=== PATIENT | female | born 1960 | race African-American/Black ===

== ENCOUNTER 2020-08-19 23:01 | Emergency (ER) | payer OTHER ==
--- OUTSIDE RECORDS SUMMARY | 2020-08-19 23:10 | XMS REPORT | Continuity of Care Document ---
:1960 Author Organization [facility] t Address [address] [place] [address] Care Team Providers Name Role Phone Jeromy Alba Primary Care Physician ANA PAULA TAVARES Attending Clinician Unavailable STEVE GARCIA Attending Clinician Unavailable NARGIS Admitting Clinician Unavailable STEVE GARCIA Admitting Clinician Unavailable Problems Condition Condition Condition Status Onset Resolution Last Treating Co mments Source Name Details Category Date Date Treatment Clinician Date Pyoderma Pyoderma Disease Active Overview: [facility]osu [facility]-10 [facility] - m m 00:00: surgical Medical 00 Center Hip 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[facility] osteoarthr osteoarthr 10-29 [facility] kes - itis itis 00:00: Medical 00 Center Diabetes Diabetes Disease [facility] Hypertensi Hypertensi Disease Active [facility] on on 10-29 [facility] Center Unilateral Unilateral Disease Active [facility] primary primary 10-07 [facility] - osteoarthr osteoarthr 00:00: Me dical itis, itis, 00 [place] right hip right hip Surgical Surgical Disease Active [facility] - infection, infection, Me dical initial initial Center encounter encounter Allergies, Adverse Reactions, Alerts Allergy Allergy Status Severity Reaction(s) Onset Inactive Treating Comm ents Source Name Type Date Date Clinician Iopamido Propensi Active Anaphylaxis [facility] to 10-06 [facility] - adverse 00:00: Medical reaction 00 Center s Family History Family Member Diagnosis Comments Start Date Stop Date Source Natural father Lung cancer [facility] Natural mother Diabetes [facility] Social History Social Habit Start Date Stop Date Quantity Comments Source Sex Assigned At [facility] Tobacco use and 2017-11-18 2017-11-18 Never used [facility] kes - exposure 00:00:00 00:00:00 Medical Center Alcohol intake 2017-11-18 2017-11-18 [facility] - 00:[facility]:00 00:00:00 of alcohol [facility] (finding) Alcohol Comment 2017-10-06 2017-10-06 SOCIALLY [facility] [place] - 00:00:00 00:00:00 Medical Center Smoking Status Start Date Stop Date Source Never smoker [facility] Medications Ordered Filled Start Stop Current Ordering Indication Dosage Frequency Signature Comments Components Source Medication Medication Date Date Medication? Clinician (SIG) Name Name gabapentin Yes 100mg QD Take [address] (NEURONTIN) 9-21 mg by [facility] - 100 MG 19:21: mouth Medical capsule 59 daily. Center apixaban Yes 5mg Q.5D Take [address] (ELIQUIS) 5 9-21 tablet (5 [facility] - mg Tab 00:00: mg total) Medica l tablet 00 by mouth 2 Center (two) times daily. sodium Yes 1g Inject 1 g [facility] chloride 9-21 intravenou [facility] - 0.9% (NS) 00:00: sly every Med ical PF Soln 20 00 8 (eight) Cent er mL with hours. meropenem 1 gram SolR 1 g Procedures This patient has no known procedures. Plan of Care Planned Activity Planned Date Details Comments Source Future Scheduled 2019-11-16 INFLUENZA VACCINE (#1) [facility] - Test 00:00:00 [code = INFLUENZA Medical Ce nter VACCINE (#1)] Future Scheduled 2018-11-[address] [facility] - Test 00:00[facility]00 [facility] (procedure) [code = 195739608] Future Scheduled 2017-10-29 Hemoglobin A1c [facility] kes - Test 00:00:00 [facility] (procedure) [code = 56700143] Future Scheduled [address] [facility] - Test 00:00:00 (procedure) [code = Medical Center 53859113] Future Scheduled [address] [facility] - Test 00:00:[address] [facility] cervix (procedure) [code = 509339237] Future Scheduled 1970 DIABETIC EYE EXAM [facility] - Test 00:00:00 [code = DIABETIC EYE Medical Center EXAM] Future Scheduled [address] [facility] - Test 00:00:00 examination Medical Center (regime/therapy) [code = 642852354] Future Scheduled 1970 Urine screening for [facility] - Test 00:00:00 protein (procedure) Medical Center [code = 159357208] Future Scheduled [address] [facility] - Test 00:00:00 0-64 YRS (1 of 1 - Medical C enter PPSV23) [code = PNEUMOCOCCAL VACCINE 0-64 YRS (1 of 1 - PPSV23)] Future Scheduled [address] [facility] - Test 00:00:[address] [facility] breast (procedure) [code = 200929179] Results Test Description Test Time Test Comments Results Result Comments Source AFB CULTURE + SMEAR 2017-12-27 17:40:00 Test Item Value Reference Range Interpretation Comme nts CULTURE (BEAKER) (test code = 1095) No acid-fast bacilli isolated i n 42 days AFB SMEAR (BEAKER) (test code = 994) No acid fast bacilli seen AFB CULTURE + [id number] 16:47:00 Test Item Value Reference Range Interpretation Comments CULTURE (BEAKER) (test No acid-fast bacilli code = 1095) isolated in 42 days AFB SMEAR (BEAKER) No acid fast bacilli (test code = 994) seen FUNGUS CULTURE + [id number] 17:06:00 Test Item Value Reference Range Interpretation Comments CULTURE (BEAKER) (test No fungus isolated in code = 1095) 28 days FUNGUS SMEAR (BEAKER) No fungi seen (test code = 1406) FUNGUS CULTURE + [id number] 20:59:00 Test Item Value Reference Range Interpretation Comments CULTURE (BEAKER) (test No fungus isolated in code = 1095) 28 days FUNGUS SMEAR (BEAKER) No fungi seen (test code = 1406) POCT-GLUCOSE [id number] 17:00:00 Test Item Value Reference Range Interpretation Comments POC-GLUCOSE METER 193 mg/dL 70-110 H TESTED AT [facility] [address] (BEAKER) (test code [facility] = [address]38) [place] [address] POCT-GLUCOSE [id number] 11:50:00 Test Item Value Reference Range Interpretation Comments POC-GLUCOSE METER 185 mg/dL 70-110 H TESTED AT [facility] [address] (BEAKER) (test code [facility] = [address]38) [place] [address] CBC W/PLT COUNT & AUTO [id number] 09:22:00 Test Item Value Reference Range Interpretation Comments WHITE BLOOD CELL COUNT (BEAKER) 10.0 K/ L 4.0-10.0 (test code = 775) RED BLOOD CELL COUNT (BEAKER) 3.76 M/ L 4.00-5.00 L (test code = 761) HEMOGLOBIN (BEAKER) (test code = 10.2 GM/DL 12.0-15.5 L 410) HEMATOCRIT (BEAKER) (test code = 32.8 % 36.0-46.0 L 411) MEAN CORPUSCULAR VOLUME (BEAKER) 87.2 fL 82.0-99.0 (test code = 753) MEAN CORPUSCULAR HEMOGLOBIN 27.1 pg 27.0-33.0 (BEAKER) (test code = 751) MEAN CORPUSCULAR HEMOGLOBIN CONC 31.1 GM/DL 32.0-36.0 L (BEAKER) (test code = 752) RED CELL DISTRIBUTION WIDTH 18.6 % 12.0-15.0 H (BEAKER) (test code = 412) PLATELET COUNT (BEAKER) (test 233 K/CU MM 150-430 code = 756) MEAN PLATELET VOLUME (BEAKER) 10.4 fL 6.0-11.5 (test code = 754) NUCLEATED RED BLOOD CELLS 0 /100 WBC 0-0 (BEAKER) (test code = 413) NEUTROPHILS RELATIVE PERCENT 64 % (BEAKER) (test code = 429) LYMPHOCYTES RELATIVE PERCENT 24 % (BEAKER) (test code = 430) MONOCYTES RELATIVE PERCENT 10 % (BEAKER) (test code = 431) EOSINOPHILS RELATIVE PERCENT 2 % (BEAKER) (test code = 432) BASOPHILS RELATIVE PERCENT 0 % (BEAKER) (test code = 437) NEUTROPHILS ABSOLUTE COUNT 6.38 K/ L 1.80-8.00 (BEAKER) (test code = 670) LYMPHOCYTES ABSOLUTE COUNT 2.41 K/ L 1.48-4.50 (BEAKER) (test code = 414) MONOCYTES ABSOLUTE COUNT (BEAKER) 0.99 K/ L 0.00-1.30 (test code = 415) EOSINOPHILS ABSOLUTE COUNT 0.18 K/ L 0.00-0.50 (BEAKER) (test code = 416) BASOPHILS ABSOLUTE COUNT (BEAKER) 0.01 K/ L 0.00-0.20 (test code = 417) IMMATURE GRANULOCYTES-RELATIVE 1 % 0-0 H PERCENT (BEAKER) (test code = 2801) BASIC METABOLIC [id number] 09:21:00 Test Item Value Reference Range Interpretation Comments SODIUM (BEAKER) 139 meq/L 135-148 (test code = 381) POTASSIUM (BEAKER) 3.4 meq/L 3.5-5.5 L (test code = 379) CHLORIDE (BEAKER) 103 meq/L 98-106 (test code = 382) CO2 (BEAKER) (test 25 meq/L 20-31 code = 355) BLOOD UREA NITROGEN 23 mg/dL 10-26 (BEAKER) (test code = 354) CREATININE (BEAKER) 0.69 mg/dL 0.50-1.20 (test code = 358) GLUCOSE RANDOM 96 mg/dL 70-110 (BEAKER) (test code = 652) CALCIUM (BEAKER) 9.0 mg/dL 8.5-10.5 (test code = 697) EGFR (BEAKER) (test 106 mL/min/1.73 ESTIM ATED GFR IS code = 1092) sq m NOT ACCURATE CREATININE CLEARANCE IN PREDICTING GLOMERULAR FILTRATION RATE . ESTIMATED GFR I S NOT APPLICABLE FOR DIALYSIS PATIEN TS. C-REACTIVE [id number] 09:21:00 Test Item Value Reference Range Interpretation Comments C-REACTIVE PROTEIN (BEAKER) (test 2.31 mg/dL 0.00-0.50 H code = 676) HEPATIC FUNCTION [id number] 09:20:00 Test Item Value Reference Range Interpretation Comments TOTAL PROTEIN (BEAKER) (test code = 6.7 gm/dL 6.0-8.5 770) ALBUMIN (BEAKER) (test code = 1145) 3.4 g/dL 3.5-5.0 L BILIRUBIN TOTAL (BEAKER) (test code 0.8 mg/dL 0.1-1.3 = 377) BILIRUBIN DIRECT (BEAKER) (test 0.5 mg/dL 0.0-0.5 code = 706) ALKALINE PHOSPHATASE (BEAKER) (test 113 U/L 30-115 code = 346) AST (SGOT) (BEAKER) (test code = 20 U/L 5-40 353) ALT (SGPT) (BEAKER) (test code = 47 U/L 6-50 347) POCT-GLUCOSE [id number] 06:53:00 Test Item Value Reference Range Interpretation Comments POC-GLUCOSE METER 102 mg/dL 70-110 TESTED AT [facility] [address] [facility] (test code [place] [facility] = [address]38) [place] [address] POCT-GLUCOSE [id number] 21:32:00 Test Item Value Reference Range Interpretation Comments POC-GLUCOSE METER 212 mg/dL 70-110 H TESTED AT [facility] [address] [facility] (test code [place] [facility] = [address]38) [place] [address] POCT-GLUCOSE [id number] 16:26:00 Test Item Value Reference Range Interpretation Comments POC-GLUCOSE METER 170 mg/dL 70-110 H TESTED AT [facility] [address] ([facility]) (test code [place] [facility] = [address]38) [place] [address] POCT-GLUCOSE [id number] 05:53:00 Test Item Value Reference Range Interpretation Comments POC-GLUCOSE METER 90 mg/dL 70-110 TESTED AT [facility] [address] ([facility] (test code = [place] [facility] 15[address]) [place] [address] POCT-GLUCOSE [id number] 21:52:00 Test Item Value Reference Range Interpretation Comments POC-GLUCOSE METER 130 mg/dL 70-110 H TESTED AT [facility] [address] [facility] (test code [place] [facility] = 1538) [place] [address] POCT-GLUCOSE [id number] 17:16:00 Test Item Value Reference Range Interpretation Comments POC-GLUCOSE METER 177 mg/dL 70-110 H TESTED AT [facility] [address] (BEAKER) ([facility] [place] [facility] = [address]) [place] [address] [id number] 16:02:00 Test Item Value Reference Range Interpretation Comments POTASSIUM (BEAKER) (test code = 3.9 meq/L 3.5-5.5 379) POCT-GLUCOSE [id number] 12:10:00 Test Item Value Reference Range Interpretation Comments POC-GLUCOSE METER 176 mg/dL 70-110 H TESTED AT [facility] [address] (BEAKER) (test code [place] [facility] = [address]38) [place] [address] POCT-GLUCOSE [id number] 05:57:00 Test Item Value Reference Range Interpretation Comments POC-GLUCOSE METER 113 mg/dL 70-110 H TESTED AT [facility] [address] (BEAKER) (test [place] [facility] = [address]) [place] [address] POCT-GLUCOSE [id number] 21:53:00 Test Item Value Reference Range Interpretation Comments POC-GLUCOSE METER 160 mg/dL 70-110 H TESTED AT [facility] [address] (BEAKER) (test [place] [facility] = [address]) [place] [address] POCT-GLUCOSE [id number] 16:49:00 Test Item Value Reference Range Interpretation Comments POC-GLUCOSE METER 158 mg/dL 70-110 H TESTED AT [facility] [address] (BEAKER) (test [place] [facility] = [address]) [place] [address] POCT-GLUCOSE [id number] 12:14:00 Test Item Value Reference Range Interpretation Comments POC-GLUCOSE METER 162 mg/dL 70-110 H TESTED AT [facility] [address] (BEAKER) (test code [place] [facility] = 1538) [place] [address] BASIC METABOLIC [id number] 04:57:00 Test Item Value Reference Range Interpretation Comments SODIUM (BEAKER) 140 meq/L 135-148 (test code = 381) POTASSIUM (BEAKER) 3.1 meq/L 3.5-5.5 L (test code = 379) CHLORIDE (BEAKER) 102 meq/L 98-106 (test code = 382) CO2 (BEAKER) (test 28 meq/L 20-31 code = 355) BLOOD UREA NITROGEN 26 mg/dL 10-26 (BEAKER) (test code = 354) CREATININE (BEAKER) 0.64 mg/dL 0.50-1.20 (test code = 358) GLUCOSE RANDOM 102 mg/dL 70-110 (BEAKER) (test code = 652) CALCIUM (BEAKER) 8.7 mg/dL 8.5-10.5 (test code = 697) EGFR (BEAKER) (test 116 mL/min/1.73 ESTIM ATED GFR IS code = 1092) sq m NOT ACCURATE CREATININE CLEARANCE IN PREDICTING GLOMERULAR FILTRATION RATE . ESTIMATED GFR I S NOT APPLICABLE FOR DIALYSIS PATIEN TS. CBC W/PLT COUNT & AUTO [id number] 04:28:00 Test Item Value Reference Range Interpretation Comments WHITE BLOOD CELL COUNT 12.1 K/ L 4.0-10.0 H (BEAKER) (test code = 775) RED BLOOD CELL COUNT 3.54 M/ L 4.00-5.00 L (BEAKER) (test code = 761) HEMOGLOBIN (BEAKER) 9.7 GM/DL 12.0-15.5 L (test code = 410) HEMATOCRIT (BEAKER) 30.0 % 36.0-46.0 L (test code = 411) MEAN CORPUSCULAR VOLUME 84.7 fL 82.0-99.0 (BEAKER) (test code = 753) MEAN CORPUSCULAR 27.4 pg 27.0-33.0 HEMOGLOBIN (BEAKER) (test code = 751) MEAN CORPUSCULAR 32.3 GM/DL 32.0-36.0 HEMOGLOBIN CONC (BEAKER) (test code = 752) RED CELL DISTRIBUTION 19.5 % 12.0-15.0 H WIDTH (BEAKER) (test code = 412) PLATELET COUNT (BEAKER) 206 K/CU MM 150-430 (test code = 756) MEAN PLATELET VOLUME 10.0 fL 6.0-11.5 MPV-Christina roximately (BEAKER) (test code = 20% po sitive bias 754) due to method change. NUCLEATED RED BLOOD 0 /100 WBC 0-0 CELLS (BEAKER) (test code = 413) NEUTROPHILS RELATIVE 69 % PERCENT (BEAKER) (test code = 429) LYMPHOCYTES RELATIVE 18 % PERCENT (BEAKER) (test code = 430) MONOCYTES RELATIVE 11 % PERCENT (BEAKER) (test code = 431) EOSINOPHILS RELATIVE 1 % PERCENT (BEAKER) (test code = 432) BASOPHILS RELATIVE 0 % PERCENT (BEAKER) (test code = 437) NEUTROPHILS ABSOLUTE 8.41 K/ L 1.80-8.00 H COUNT (BEAKER) (test code = 670) LYMPHOCYTES ABSOLUTE 2.16 K/ L 1.48-4.50 COUNT (BEAKER) (test code = 414) MONOCYTES ABSOLUTE 1.32 K/ L 0.00-1.30 H COUNT (BEAKER) (test code = 415) EOSINOPHILS ABSOLUTE 0.12 K/ L 0.00-0.50 COUNT (BEAKER) (test code = 416) BASOPHILS ABSOLUTE 0.01 K/ L 0.00-0.20 COUNT (BEAKER) (test code = 417) IMMATURE 1 % 0-0 H GRANULOCYTES-RELATIVE PERCENT (BEAKER) (test code = 2801) POCT-GLUCOSE [id number] 20:44:00 Test Item Value Reference Range Interpretation Comments POC-GLUCOSE METER 168 mg/dL 70-110 H TESTED AT [facility] [address] (BEAKER) (test code [facility] = [address]) [place] [address] POCT-GLUCOSE [id number] 16:10:00 Test Item Value Reference Range Interpretation Comments POC-GLUCOSE METER 228 mg/dL 70-110 H TESTED AT [facility] [address] (BEAKER) (test code [facility] = [address]38) [place] [address] POCT-GLUCOSE [id number] 13:15:00 Test Item Value Reference Range Interpretation Comments POC-GLUCOSE METER 182 mg/dL 70-110 H TESTED AT [facility] [address] (BEAKER) (test code [facility] = [address]38) [place] [address] POCT-GLUCOSE [id number] 06:57:00 Test Item Value Reference Range Interpretation Comments POC-GLUCOSE METER 153 mg/dL 70-110 H TESTED AT [facility] [address] (BEAKER) (test code [facility] = [address]38) [place] [address] POCT-GLUCOSE [id number] 21:27:00 Test Item Value Reference Range Interpretation Comments POC-GLUCOSE METER 146 mg/dL 70-110 H TESTED AT [facility] [address] (BEAKER) ([place] [facility] = [address]) [place] [address] POCT-GLUCOSE [id number] 17:17:00 Test Item Value Reference Range Interpretation Comments POC-GLUCOSE METER 134 mg/dL 70-110 H TESTED AT [facility] [address] (BEAKER) (test [place] [facility] = [address]) [place] [address] POCT-GLUCOSE [id number] 13:49:00 Test Item Value Reference Range Interpretation Comments POC-GLUCOSE METER 177 mg/dL 70-110 H TESTED AT [facility] [address] (BEAKER) (test [place] [facility] = [address]) [place] [address] POCT-GLUCOSE [id number] 05:34:00 Test Item Value Reference Range Interpretation Comments POC-GLUCOSE METER 118 mg/dL 70-110 H TESTED AT [facility] [address] [facility] (test [place] [facility] = [address]38) [place] [address] POCT-GLUCOSE [id number] 21:14:00 Test Item Value Reference Range Interpretation Comments POC-GLUCOSE METER 149 mg/dL 70-110 H TESTED AT [facility] [address] [facility] ([place] [facility] = [address]38) [place] [address] POCT-GLUCOSE [id number] 17:44:00 Test Item Value Reference Range Interpretation Comments POC-GLUCOSE METER 132 mg/dL 70-110 H TESTED AT [facility] [address] (BEAKER) (test [place] [facility] = [address]) [place] [address] POCT-GLUCOSE [id number] 12:21:00 Test Item Value Reference Range Interpretation Comments POC-GLUCOSE METER 168 mg/dL 70-110 H TESTED AT [facility] [address] (BEAKER) (test code [place] = 1538) [place] [address] [id number] 05:19:00 Test Item Value Reference Range Interpretation Comments PARTIAL THROMBOPLASTIN TIME 84.3 seconds 23.2-36.1 H (BEAKER) (test code = 760) POCT-GLUCOSE [id number] 20:50:00 Test Item Value Reference Range Interpretation Comments POC-GLUCOSE METER 147 mg/dL 70-110 H TESTED AT [facility] [address] (BEAKER) (test code [facility] = [address]38) [place] [address] POCT-GLUCOSE [id number] 17:19:00 Test Item Value Reference Range Interpretation Comments POC-GLUCOSE METER 238 mg/dL 70-110 H TESTED AT [facility] [address] (BEAKER) (test code [facility] = [address]38) [place] [address] [id number] 15:09:00 Test Item Value Reference Range Interpretation Comments PARTIAL THROMBOPLASTIN TIME 74.8 seconds 23.2-36.1 H (BEAKER) (test code = 760) POCT-GLUCOSE [id number] 11:57:00 Test Item Value Reference Range Interpretation Comments POC-GLUCOSE METER 146 mg/dL 70-110 H TESTED AT [facility] [address] (BEAKER) ([facility] [place] [address] POCT-GLUCOSE [id number] 05:37:00 Test Item Value Reference Range Interpretation Comments POC-GLUCOSE METER 139 mg/dL 70-110 H TESTED AT [facility] [address] (BEAKER) (test code [facility] = [address]38) [place] [address] BASIC METABOLIC [id number] 04:04:00 Test Item Value Reference Range Interpretation Comments SODIUM (BEAKER) 142 meq/L 135-148 (test code = 381) POTASSIUM (BEAKER) 3.4 meq/L 3.5-5.5 L (test code = 379) CHLORIDE (BEAKER) 102 meq/L 98-106 (test code = 382) CO2 (BEAKER) (test 29 meq/L 20-31 code = 355) BLOOD UREA NITROGEN 24 mg/dL 10-26 (BEAKER) (test code = 354) CREATININE (BEAKER) 0.78 mg/dL 0.50-1.20 (test code = 358) GLUCOSE RANDOM 156 mg/dL 70-110 H (BEAKER) (test code = 652) CALCIUM (BEAKER) 8.4 mg/dL 8.5-10.5 L (test code = 697) EGFR (BEAKER) (test 92 mL/min/1.73 ESTIMA JUNE GFR IS code = 1092) sq m NOT ACCURATE CREATININE CLEARANCE IN PREDICTING GLOMERULAR FILTRATION RATE . ESTIMATED GFR I S NOT APPLICABLE FOR DIALYSIS PATIEN TS. [id number] 04:02:00 Test Item Value Reference Range Interpretation Comments PARTIAL THROMBOPLASTIN TIME 76.5 seconds 23.2-36.1 H (BEAKER) (test code = 760) CBC W/PLT COUNT & AUTO [id number] 03:41:00 Test Item Value Reference Range Interpretation Comments WHITE BLOOD CELL COUNT 14.4 K/ L 4.0-10.0 H (BEAKER) (test code = 775) RED BLOOD CELL COUNT 3.40 M/ L 4.00-5.00 L (BEAKER) (test code = 761) HEMOGLOBIN (BEAKER) 9.3 GM/DL 12.0-15.5 L (test code = 410) HEMATOCRIT (BEAKER) 28.6 % 36.0-46.0 L (test code = 411) MEAN CORPUSCULAR VOLUME 84.1 fL 82.0-99.0 (BEAKER) (test code = 753) MEAN CORPUSCULAR 27.4 pg 27.0-33.0 HEMOGLOBIN (BEAKER) (test code = 751) MEAN CORPUSCULAR 32.5 GM/DL 32.0-36.0 HEMOGLOBIN CONC (BEAKER) (test code = 752) RED CELL DISTRIBUTION 19.8 % 12.0-15.0 H WIDTH (BEAKER) (test code = 412) PLATELET COUNT (BEAKER) 219 K/CU MM 150-430 (test code = 756) MEAN PLATELET VOLUME 9.5 fL 6.0-11.5 MPV-Christina roximately (BEAKER) (test code = 20% po sitive bias 754) due to method change. NUCLEATED RED BLOOD 0 /100 WBC 0-0 CELLS (BEAKER) (test code = 413) NEUTROPHILS RELATIVE 78 % PERCENT (BEAKER) (test code = 429) LYMPHOCYTES RELATIVE 12 % PERCENT (BEAKER) (test code = 430) MONOCYTES RELATIVE 8 % PERCENT (BEAKER) (test code = 431) EOSINOPHILS RELATIVE 1 % PERCENT (BEAKER) (test code = 432) BASOPHILS RELATIVE 0 % PERCENT (BEAKER) (test code = 437) NEUTROPHILS ABSOLUTE 11.21 K/ L 1.80-8.00 H COUNT (BEAKER) (test code = 670) LYMPHOCYTES ABSOLUTE 1.71 K/ L 1.48-4.50 COUNT (BEAKER) (test code = 414) MONOCYTES ABSOLUTE 1.16 K/ L 0.00-1.30 COUNT (BEAKER) (test code = 415) EOSINOPHILS ABSOLUTE 0.07 K/ L 0.00-0.50 COUNT (BEAKER) (test code = 416) BASOPHILS ABSOLUTE 0.01 K/ L 0.00-0.20 COUNT (BEAKER) (test code = 417) IMMATURE 2 % 0-0 H GRANULOCYTES-RELATIVE PERCENT (BEAKER) (test code = 2801) POCT-GLUCOSE [id number] 22:12:00 Test Item Value Reference Range Interpretation Comments POC-GLUCOSE METER 247 mg/dL 70-110 H TESTED AT [facility] [address] (BEAKER) (test code [facility] = [address]38) [place] [address] [id number] 21:11:00 Test Item Value Reference Range Interpretation Comments PARTIAL THROMBOPLASTIN TIME 62.4 seconds 23.2-36.1 H (BEAKER) (test code = 760) [id number] 12:45:00 Test Item Value Reference Range Interpretation Comments PARTIAL THROMBOPLASTIN TIME 101.2 seconds 23.2-36.1 H (BEAKER) (test code = 760) POCT-GLUCOSE [id number] 11:48:00 Test Item Value Reference Range Interpretation Comments POC-GLUCOSE METER 259 mg/dL 70-110 H TESTED AT [facility] [address] (BEAKER) (test code [facility] = 1538) [place] [address] POCT-GLUCOSE [id number] 05:38:00 Test Item Value Reference Range Interpretation Comments POC-GLUCOSE METER 121 mg/dL 70-110 H TESTED AT [facility] [address] (BEAKER) (test code [facility] = 1538) [place] [address] [id number] 05:33:00 Test Item Value Reference Range Interpretation Comments PARTIAL THROMBOPLASTIN TIME 108.5 seconds 23.2-36.1 H (BEAKER) (test code = 760) POCT-GLUCOSE [id number] 20:59:00 Test Item Value Reference Range Interpretation Comments POC-GLUCOSE METER 197 mg/dL 70-110 H TESTED AT [facility] [address] (BEAKER) (test code [facility] = 1538) [place] [address] POCT-GLUCOSE [id number] 16:47:00 Test Item Value Reference Range Interpretation Comments POC-GLUCOSE METER 150 mg/dL 70-110 H TESTED AT [facility] [address] (BEAKER) (test code [facility] = 1538) [place] [address] [id number] 15:21:00 Test Item Value Reference Range Interpretation Comments PARTIAL THROMBOPLASTIN TIME 79.9 seconds 23.2-36.1 H (BEAKER) (test code = 760) POCT-GLUCOSE [id number] 12:52:00 Test Item Value Reference Range Interpretation Comments POC-GLUCOSE METER 207 mg/dL 70-110 H TESTED AT [facility] [address] (BEAKER) (test code [facility] = 1538) [place] [address] [id number] 09:17:00 Test Item Value Reference Range Interpretation Comments PARTIAL THROMBOPLASTIN TIME 95.7 seconds 23.2-36.1 H (BEAKER) (test code = 760) BASIC METABOLIC [id number] 02:36:00 Test Item Value Reference Range Interpretation Comments SODIUM (BEAKER) 140 meq/L 135-148 (test code = 381) POTASSIUM (BEAKER) 3.4 meq/L 3.5-5.5 L (test code = 379) CHLORIDE (BEAKER) 98 meq/L 98-106 (test code = 382) CO2 (BEAKER) (test 34 meq/L 20-31 H code = 355) BLOOD UREA NITROGEN 24 mg/dL 10-26 (BEAKER) (test code = 354) CREATININE (BEAKER) 0.68 mg/dL 0.50-1.20 (test code = 358) GLUCOSE RANDOM 147 mg/dL 70-110 H (BEAKER) (test code = 652) CALCIUM (BEAKER) 7.9 mg/dL 8.5-10.5 L (test code = 697) EGFR (BEAKER) (test 108 mL/min/1.73 ESTIM ATED GFR IS code = 1092) sq m NOT ACCURATE CREATININE CLEARANCE IN PREDICTING GLOMERULAR FILTRATION RATE . ESTIMATED GFR I S NOT APPLICABLE FOR DIALYSIS PATIEN TS. [id number] 02:26:00 Test Item Value Reference Range Interpretation Comments PARTIAL THROMBOPLASTIN TIME 104.6 seconds 23.2-36.1 H (BEAKER) (test code = 760) CBC W/PLT COUNT & AUTO [id number] 02:18:00 Test Item Value Reference Range Interpretation Comments WHITE BLOOD CELL COUNT 12.9 K/ L 4.0-10.0 H (BEAKER) (test code = 775) RED BLOOD CELL COUNT 3.23 M/ L 4.00-5.00 L (BEAKER) (test code = 761) HEMOGLOBIN (BEAKER) 8.7 GM/DL 12.0-15.5 L (test code = 410) HEMATOCRIT (BEAKER) 26.7 % 36.0-46.0 L (test code = 411) MEAN CORPUSCULAR VOLUME 82.7 fL 82.0-99.0 (BEAKER) (test code = 753) MEAN CORPUSCULAR 26.9 pg 27.0-33.0 L HEMOGLOBIN (BEAKER) (test code = 751) MEAN CORPUSCULAR 32.6 GM/DL 32.0-36.0 HEMOGLOBIN CONC (BEAKER) (test code = 752) RED CELL DISTRIBUTION 19.2 % 12.0-15.0 H WIDTH (BEAKER) (test code = 412) PLATELET COUNT (BEAKER) 224 K/CU MM 150-430 (test code = 756) MEAN PLATELET VOLUME 9.4 fL 6.0-11.5 MPV-Christina roximately (BEAKER) (test code = 20% po sitive bias 754) due to method change. NUCLEATED RED BLOOD 0 /100 WBC 0-0 CELLS (BEAKER) (test code = 413) NEUTROPHILS RELATIVE 73 % PERCENT (BEAKER) (test code = 429) LYMPHOCYTES RELATIVE 15 % PERCENT (BEAKER) (test code = 430) MONOCYTES RELATIVE 9 % PERCENT (BEAKER) (test code = 431) EOSINOPHILS RELATIVE 1 % PERCENT (BEAKER) (test code = 432) BASOPHILS RELATIVE 0 % PERCENT (BEAKER) (test code = 437) NEUTROPHILS ABSOLUTE 9.43 K/ L 1.80-8.00 H COUNT (BEAKER) (test code = 670) LYMPHOCYTES ABSOLUTE 1.88 K/ L 1.48-4.50 COUNT (BEAKER) (test code = 414) MONOCYTES ABSOLUTE 1.20 K/ L 0.00-1.30 COUNT (BEAKER) (test code = 415) EOSINOPHILS ABSOLUTE 0.08 K/ L 0.00-0.50 COUNT (BEAKER) (test code = 416) BASOPHILS ABSOLUTE 0.01 K/ L 0.00-0.20 COUNT (BEAKER) (test code = 417) IMMATURE 2 % 0-0 H GRANULOCYTES-RELATIVE PERCENT (BEAKER) (test code = 2801) POCT-GLUCOSE [id number] 22:17:00 Test Item Value Reference Range Interpretation Comments POC-GLUCOSE METER 211 mg/dL 70-110 H TESTED AT [facility] [address] (BEAKER) (test code [facility] = 1538) [place] [address] [id number] 20:16:00 Test Item Value Reference Range Interpretation Comments PARTIAL THROMBOPLASTIN TIME 107.2 seconds 23.2-36.1 H (BEAKER) (test code = 760) POCT-GLUCOSE [id number] 16:24:00 Test Item Value Reference Range Interpretation Comments POC-GLUCOSE METER 167 mg/dL 70-110 H TESTED AT [facility] [address] (BEAKER) (test code [facility] = 1538) [place] [address] [id number] 14:17:00 Test Item Value Reference Range Interpretation Comments PARTIAL THROMBOPLASTIN TIME 96.3 seconds 23.2-36.1 H (BEAKER) (test code = 760) POCT-GLUCOSE [id number] 11:40:00 Test Item Value Reference Range Interpretation Comments POC-GLUCOSE METER 190 mg/dL 70-110 H TESTED AT [facility] [address] (BEAKER) (test code [facility] = 1538) [place] [address] [id number] 07:52:00 Test Item Value Reference Range Interpretation Comments PARTIAL THROMBOPLASTIN TIME 58.0 seconds 23.2-36.1 H (BEAKER) (test code = 760) BASIC METABOLIC [id number] 06:09:00 Test Item Value Reference Range Interpretation Comments SODIUM (BEAKER) 142 meq/L 135-148 (test code = 381) POTASSIUM (BEAKER) 3.7 meq/L 3.5-5.5 (test code = 379) CHLORIDE (BEAKER) 100 meq/L 98-106 (test code = 382) CO2 (BEAKER) (test 34 meq/L 20-31 H code = 355) BLOOD UREA NITROGEN 25 mg/dL 10-26 (BEAKER) (test code = 354) CREATININE (BEAKER) 0.68 mg/dL 0.50-1.20 (test code = 358) GLUCOSE RANDOM 152 mg/dL 70-110 H (BEAKER) (test code = 652) CALCIUM (BEAKER) 7.8 mg/dL 8.5-10.5 L (test code = 697) EGFR (BEAKER) (test 108 mL/min/1.73 ESTIM ATED GFR IS code = 1092) sq m NOT ACCURATE CREATININE CLEARANCE IN PREDICTING GLOMERULAR FILTRATION RATE . ESTIMATED GFR I S NOT APPLICABLE FOR DIALYSIS PATIJUNAID JEAN. [id number] 05:53:00 Test Item Value Reference Range Interpretation Comments PARTIAL THROMBOPLASTIN TIME 138.1 seconds 23.2-36.1 H (BEAKER) (test code = 760) CBC W/PLT COUNT & AUTO [id number] 05:45:00 Test Item Value Reference Range Interpretation Comments WHITE BLOOD CELL COUNT 13.3 K/ L 4.0-10.0 H (BEAKER) (test code = 775) RED BLOOD CELL COUNT 3.12 M/ L 4.00-5.00 L (BEAKER) (test code = 761) HEMOGLOBIN (BEAKER) 8.5 GM/DL 12.0-15.5 L (test code = 410) HEMATOCRIT (BEAKER) 26.0 % 36.0-46.0 L (test code = 411) MEAN CORPUSCULAR VOLUME 83.3 fL 82.0-99.0 (BEAKER) (test code = 753) MEAN CORPUSCULAR 27.2 pg 27.0-33.0 HEMOGLOBIN (BEAKER) (test code = 751) MEAN CORPUSCULAR 32.7 GM/DL 32.0-36.0 HEMOGLOBIN CONC (BEAKER) (test code = 752) RED CELL DISTRIBUTION 18.9 % 12.0-15.0 H WIDTH (BEAKER) (test code = 412) PLATELET COUNT (BEAKER) 241 K/CU MM 150-430 (test code = 756) MEAN PLATELET VOLUME 9.2 fL 6.0-11.5 MPV-Christina roximately (BEAKER) (test code = 20% po sitive bias 754) due to method change. NUCLEATED RED BLOOD 0 /100 WBC 0-0 CELLS (BEAKER) (test code = 413) NEUTROPHILS RELATIVE 75 % PERCENT (BEAKER) (test code = 429) LYMPHOCYTES RELATIVE 13 % PERCENT (BEAKER) (test code = 430) MONOCYTES RELATIVE 9 % PERCENT (BEAKER) (test code = 431) EOSINOPHILS RELATIVE 0 % PERCENT (BEAKER) (test code = 432) BASOPHILS RELATIVE 0 % PERCENT (BEAKER) (test code = 437) NEUTROPHILS ABSOLUTE 9.94 K/ L 1.80-8.00 H COUNT (BEAKER) (test code = 670) LYMPHOCYTES ABSOLUTE 1.74 K/ L 1.48-4.50 COUNT (BEAKER) (test code = 414) MONOCYTES ABSOLUTE 1.24 K/ L 0.00-1.30 COUNT (BEAKER) (test code = 415) EOSINOPHILS ABSOLUTE 0.03 K/ L 0.00-0.50 COUNT (BEAKER) (test code = 416) BASOPHILS ABSOLUTE 0.01 K/ L 0.00-0.20 COUNT (BEAKER) (test code = 417) IMMATURE 2 % 0-0 H GRANULOCYTES-RELATIVE PERCENT (BEAKER) (test code = 2801) [id number] 23:56:00 Test Item Value Reference Range Interpretation Comments PARTIAL THROMBOPLASTIN TIME 96.6 seconds 23.2-36.1 H (BEAKER) (test code = 760) POCT-GLUCOSE [id number] 21:22:00 Test Item Value Reference Range Interpretation Comments POC-GLUCOSE METER 160 mg/dL 70-110 H TESTED AT [facility] [address] (BEAKER) (test code [facility] = 1538) [place] [address] POCT-GLUCOSE [id number] 17:27:00 Test Item Value Reference Range Interpretation Comments POC-GLUCOSE METER 151 mg/dL 70-110 H TESTED AT [facility] [address] (BEAKER) (test code [facility] = 1538) [place] [address] [id number] 16:40:00 Test Item Value Reference Range Interpretation Comments PARTIAL THROMBOPLASTIN TIME 40.0 seconds 23.2-36.1 H (BEAKER) (test code = 760) POCT-GLUCOSE [id number] 13:43:00 Test Item Value Reference Range Interpretation Comments POC-GLUCOSE METER 164 mg/dL 70-110 H TESTED AT [facility] [address] (BEAKER) (test code [facility] = 1538) [place] [address] [id number] 13:34:00 Test Item Value Reference Range Interpretation Comments PARTIAL THROMBOPLASTIN TIME 141.6 seconds 23.2-36.1 H (BEAKER) (test code = 760) OCCULT BLOOD, [id number] 13:20:00 Test Item Value Reference Range Interpretation Comments FECAL OCCULT BLOOD (BEAKER) (test Negative Negative code = 618) BASIC METABOLIC [id number] 12:13:00 Test Item Value Reference Range Interpretation Comments SODIUM (BEAKER) 141 meq/L 135-148 (test code = 381) POTASSIUM (BEAKER) 3.9 meq/L 3.5-5.5 (test code = 379) CHLORIDE (BEAKER) 99 meq/L 98-106 (test code = 382) CO2 (BEAKER) (test 34 meq/L 20-31 H code = 355) BLOOD UREA NITROGEN 22 mg/dL 10-26 (BEAKER) (test code = 354) CREATININE (BEAKER) 0.65 mg/dL 0.50-1.20 (test code = 358) GLUCOSE RANDOM 159 mg/dL 70-110 H (BEAKER) (test code = 652) CALCIUM (BEAKER) 8.2 mg/dL 8.5-10.5 L (test code = 697) EGFR (BEAKER) (test 114 mL/min/1.73 ESTIM ATED GFR IS code = 1092) sq m NOT ACCURATE CREATININE CLEARANCE IN PREDICTING GLOMERULAR FILTRATION RATE . ESTIMATED GFR I S NOT APPLICABLE FOR DIALYSIS PATIEN TS. HEPATIC FUNCTION [id number] 12:13:00 Test Item Value Reference Range Interpretation Comments TOTAL PROTEIN (BEAKER) (test code = 5.5 gm/dL 6.0-8.5 L 770) ALBUMIN (BEAKER) (test code = 1145) 2.4 g/dL 3.5-5.0 L BILIRUBIN TOTAL (BEAKER) (test code 1.6 mg/dL 0.1-1.3 H = 377) BILIRUBIN DIRECT (BEAKER) (test 1.0 mg/dL 0.0-0.5 H code = 706) ALKALINE PHOSPHATASE (BEAKER) (test 111 U/L 30-115 code = 346) AST (SGOT) (BEAKER) (test code = 17 U/L 5-40 353) ALT (SGPT) (BEAKER) (test code = 26 U/L 6-50 347) CBC W/PLT COUNT & AUTO [id number] 11:47:00 Test Item Value Reference Range Interpretation Comments WHITE BLOOD CELL COUNT 13.4 K/ L 4.0-10.0 H (BEAKER) (test code = 775) RED BLOOD CELL COUNT 3.31 M/ L 4.00-5.00 L (BEAKER) (test code = 761) HEMOGLOBIN (BEAKER) 8.9 GM/DL 12.0-15.5 L (test code = 410) HEMATOCRIT (BEAKER) 27.3 % 36.0-46.0 L (test code = 411) MEAN CORPUSCULAR VOLUME 82.5 fL 82.0-99.0 (BEAKER) (test code = 753) MEAN CORPUSCULAR 26.9 pg 27.0-33.0 L HEMOGLOBIN (BEAKER) (test code = 751) MEAN CORPUSCULAR 32.6 GM/DL 32.0-36.0 HEMOGLOBIN CONC (BEAKER) (test code = 752) RED CELL DISTRIBUTION 19.0 % 12.0-15.0 H WIDTH (BEAKER) (test code = 412) PLATELET COUNT (BEAKER) 275 K/CU MM 150-430 (test code = 756) MEAN PLATELET VOLUME 8.7 fL 6.0-11.5 MPV-Christina roximately (BEAKER) (test code = 20% po sitive bias 754) due to method change. NUCLEATED RED BLOOD 0 /100 WBC 0-0 CELLS (BEAKER) (test code = 413) NEUTROPHILS RELATIVE 79 % PERCENT (BEAKER) (test code = 429) LYMPHOCYTES RELATIVE 12 % PERCENT (BEAKER) (test code = 430) MONOCYTES RELATIVE 8 % PERCENT (BEAKER) (test code = 431) EOSINOPHILS RELATIVE 0 % PERCENT (BEAKER) (test code = 432) BASOPHILS RELATIVE 0 % PERCENT (BEAKER) (test code = 437) NEUTROPHILS ABSOLUTE 10.49 K/ L 1.80-8.00 H COUNT (BEAKER) (test code = 670) LYMPHOCYTES ABSOLUTE 1.53 K/ L 1.48-4.50 COUNT (BEAKER) (test code = 414) MONOCYTES ABSOLUTE 1.04 K/ L 0.00-1.30 COUNT (BEAKER) (test code = 415) EOSINOPHILS ABSOLUTE 0.01 K/ L 0.00-0.50 COUNT (BEAKER) (test code = 416) BASOPHILS ABSOLUTE 0.02 K/ L 0.00-0.20 COUNT (BEAKER) (test code = 417) IMMATURE 2 % 0-0 H GRANULOCYTES-RELATIVE PERCENT (BEAKER) (test code = 2801) [id number] 06:33:00 Test Item Value Reference Range Interpretation Comments PARTIAL THROMBOPLASTIN TIME 102.3 seconds 23.2-36.1 H (BEAKER) (test code = 760) POCT-GLUCOSE [id number] 05:47:00 Test Item Value Reference Range Interpretation Comments POC-GLUCOSE METER 151 mg/dL 70-110 H TESTED AT [facility] [address] (BEAKER) (test code [facility] = 1538) [place] [address] BASIC METABOLIC [id number] 01:16:00 Test Item Value Reference Range Interpretation Comments SODIUM (BEAKER) 141 meq/L 135-148 (test code = 381) POTASSIUM (BEAKER) 3.9 meq/L 3.5-5.5 (test code = 379) CHLORIDE (BEAKER) 99 meq/L 98-106 (test code = 382) CO2 (BEAKER) (test 34 meq/L 20-31 H code = 355) BLOOD UREA NITROGEN 22 mg/dL 10-26 (BEAKER) (test code = 354) CREATININE (BEAKER) 0.69 mg/dL 0.50-1.20 (test code = 358) GLUCOSE RANDOM 154 mg/dL 70-110 H (BEAKER) (test code = 652) CALCIUM (BEAKER) 8.1 mg/dL 8.5-10.5 L (test code = 697) EGFR (BEAKER) (test 106 mL/min/1.73 ESTIM ATED GFR IS code = 1092) sq m NOT ACCURATE CREATININE CLEARANCE IN PREDICTING GLOMERULAR FILTRATION RATE . ESTIMATED GFR I S NOT APPLICABLE FOR DIALYSIS PATIEN TS. [id number] 01:06:00 Test Item Value Reference Range Interpretation Comments PARTIAL THROMBOPLASTIN TIME 46.8 seconds 23.2-36.1 H (BEAKER) (test code = 760) [id number] 23:18:00 Test Item Value Reference Range Interpretation Comments PARTIAL THROMBOPLASTIN TIME 177.9 seconds 23.2-36.1 HH (BEAKER) (test code = 760) POCT-GLUCOSE [id number] 22:05:00 Test Item Value Reference Range Interpretation Comments POC-GLUCOSE METER 204 mg/dL 70-110 H TESTED AT [facility] [address] (BEAKER) (test code [facility] = 1538) [place] [address] [id number] 16:35:00 Test Item Value Reference Range Interpretation Comments PARTIAL THROMBOPLASTIN TIME 47.9 seconds 23.2-36.1 H (BEAKER) (test code = 760) POCT-GLUCOSE [id number] 16:33:00 Test Item Value Reference Range Interpretation Comments POC-GLUCOSE METER 167 mg/dL 70-110 H TESTED AT [facility] [address] (BEAKER) (test code [facility] = 1538) [place] [address] [id number] 15:11:00 Test Item Value Reference Range Interpretation Comments PARTIAL THROMBOPLASTIN TIME 198.7 seconds 23.2-36.1 HH (BEAKER) (test code = 760) POCT-GLUCOSE [id number] 12:08:00 Test Item Value Reference Range Interpretation Comments POC-GLUCOSE METER 166 mg/dL 70-110 H TESTED AT [facility] [address] (BEAKER) (test code [facility] = 1538) [place] [address] [id number] 07:27:00 Test Item Value Reference Range Interpretation Comments PARTIAL THROMBOPLASTIN TIME 65.6 seconds 23.2-36.1 H (BEAKER) (test code = 760) [id number] 05:59:00 Test Item Value Reference Range Interpretation Comments PARTIAL THROMBOPLASTIN TIME 156.1 seconds 23.2-36.1 HH (BEAKER) (test code = 760) BASIC METABOLIC [id number] 05:54:00 Test Item Value Reference Range Interpretation Comments SODIUM (BEAKER) 143 meq/L 135-148 (test code = 381) POTASSIUM (BEAKER) 3.8 meq/L 3.5-5.5 (test code = 379) CHLORIDE (BEAKER) 104 meq/L 98-106 (test code = 382) CO2 (BEAKER) (test 30 meq/L 20-31 code = 355) BLOOD UREA NITROGEN 24 mg/dL 10-26 (BEAKER) (test code = 354) CREATININE (BEAKER) 0.66 mg/dL 0.50-1.20 (test code = 358) GLUCOSE RANDOM 143 mg/dL 70-110 H (BEAKER) (test code = 652) CALCIUM (BEAKER) 8.1 mg/dL 8.5-10.5 L (test code = 697) EGFR (BEAKER) (test 112 mL/min/1.73 ESTIM ATED GFR IS code = 1092) sq m NOT ACCURATE CREATININE CLEARANCE IN PREDICTING GLOMERULAR FILTRATION RATE . ESTIMATED GFR I S NOT APPLICABLE FOR DIALYSIS PATIEN TS. POCT-GLUCOSE [id number] 05:45:00 Test Item Value Reference Range Interpretation Comments POC-GLUCOSE METER 145 mg/dL 70-110 H TESTED AT [facility] [address] (BEAKER) (test code [facility] = 1538) [place] [address] CBC W/PLT COUNT & AUTO [id number] 05:36:00 Test Item Value Reference Range Interpretation Comments WHITE BLOOD CELL COUNT 16.0 K/ L 4.0-10.0 H (BEAKER) (test code = 775) RED BLOOD CELL COUNT 3.37 M/ L 4.00-5.00 L (BEAKER) (test code = 761) HEMOGLOBIN (BEAKER) 9.0 GM/DL 12.0-15.5 L (test code = 410) HEMATOCRIT (BEAKER) 28.0 % 36.0-46.0 L (test code = 411) MEAN CORPUSCULAR VOLUME 83.1 fL 82.0-99.0 (BEAKER) (test code = 753) MEAN CORPUSCULAR 26.7 pg 27.0-33.0 L HEMOGLOBIN (BEAKER) (test code = 751) MEAN CORPUSCULAR 32.1 GM/DL 32.0-36.0 HEMOGLOBIN CONC (BEAKER) (test code = 752) RED CELL DISTRIBUTION 19.8 % 12.0-15.0 H WIDTH (BEAKER) (test code = 412) PLATELET COUNT (BEAKER) 360 K/CU MM 150-430 (test code = 756) MEAN PLATELET VOLUME 8.8 fL 6.0-11.5 MPV-Christina roximately (BEAKER) (test code = 20% po sitive bias 754) due to method change. NUCLEATED RED BLOOD 0 /100 WBC 0-0 CELLS (BEAKER) (test code = 413) NEUTROPHILS RELATIVE 79 % PERCENT (BEAKER) (test code = 429) LYMPHOCYTES RELATIVE 10 % PERCENT (BEAKER) (test code = 430) MONOCYTES RELATIVE 9 % PERCENT (BEAKER) (test code = 431) EOSINOPHILS RELATIVE 0 % PERCENT (BEAKER) (test code = 432) BASOPHILS RELATIVE 0 % PERCENT (BEAKER) (test code = 437) NEUTROPHILS ABSOLUTE 12.55 K/ L 1.80-8.00 H COUNT (BEAKER) (test code = 670) LYMPHOCYTES ABSOLUTE 1.62 K/ L 1.48-4.50 COUNT (BEAKER) (test code = 414) MONOCYTES ABSOLUTE 1.48 K/ L 0.00-1.30 H COUNT (BEAKER) (test code = 415) EOSINOPHILS ABSOLUTE 0.00 K/ L 0.00-0.50 COUNT (BEAKER) (test code = 416) BASOPHILS ABSOLUTE 0.02 K/ L 0.00-0.20 COUNT (BEAKER) (test code = 417) IMMATURE 2 % 0-0 H GRANULOCYTES-RELATIVE PERCENT (BEAKER) (test code = 2801) POCT-GLUCOSE [id number] 20:29:00 Test Item Value Reference Range Interpretation Comments POC-GLUCOSE METER 128 mg/dL 70-110 H TESTED AT [facility] [address] (BEAKER) (test code [facility] = 1538) [place] [address] POCT-GLUCOSE [id number] 16:58:00 Test Item Value Reference Range Interpretation Comments POC-GLUCOSE METER 160 mg/dL 70-110 H TESTED AT [facility] [address] (BEAKER) (test code [facility] = 1538) [place] [address] POCT-GLUCOSE [id number] 11:58:00 Test Item Value Reference Range Interpretation Comments POC-GLUCOSE METER 163 mg/dL 70-110 H TESTED AT [facility] [address] (BEAKER) (test code [facility] = 1538) [place] [address] [id number] 05:25:00 Test Item Value Reference Range Interpretation Comments PARTIAL THROMBOPLASTIN TIME 79.6 seconds 23.2-36.1 H (BEAKER) (test code = 760) CBC W/PLT COUNT & AUTO [id number] 05:18:00 Test Item Value Reference Range Interpretation Comments WHITE BLOOD CELL COUNT 18.5 K/ L 4.0-10.0 H (BEAKER) (test code = 775) RED BLOOD CELL COUNT 3.59 M/ L 4.00-5.00 L (BEAKER) (test code = 761) HEMOGLOBIN (BEAKER) 9.7 GM/DL 12.0-15.5 L (test code = 410) HEMATOCRIT (BEAKER) 29.2 % 36.0-46.0 L (test code = 411) MEAN CORPUSCULAR VOLUME 81.3 fL 82.0-99.0 L (BEAKER) (test code = 753) MEAN CORPUSCULAR 27.0 pg 27.0-33.0 HEMOGLOBIN (BEAKER) (test code = 751) MEAN CORPUSCULAR 33.2 GM/DL 32.0-36.0 HEMOGLOBIN CONC (BEAKER) (test code = 752) RED CELL DISTRIBUTION 19.9 % 12.0-15.0 H WIDTH (BEAKER) (test code = 412) PLATELET COUNT (BEAKER) 407 K/CU MM 150-430 (test code = 756) MEAN PLATELET VOLUME 8.9 fL 6.0-11.5 MPV-Christina roximately (BEAKER) (test code = 20% po sitive bias 754) due to method change. NUCLEATED RED BLOOD 0 /100 WBC 0-0 CELLS (BEAKER) (test code = 413) NEUTROPHILS RELATIVE 83 % PERCENT (BEAKER) (test code = 429) LYMPHOCYTES RELATIVE 7 % PERCENT (BEAKER) (test code = 430) MONOCYTES RELATIVE 7 % PERCENT (BEAKER) (test code = 431) EOSINOPHILS RELATIVE 0 % PERCENT (BEAKER) (test code = 432) BASOPHILS RELATIVE 0 % PERCENT (BEAKER) (test code = 437) NEUTROPHILS ABSOLUTE 15.42 K/ L 1.80-8.00 H COUNT (BEAKER) (test code = 670) LYMPHOCYTES ABSOLUTE 1.25 K/ L 1.48-4.50 L COUNT (BEAKER) (test code = 414) MONOCYTES ABSOLUTE 1.22 K/ L 0.00-1.30 COUNT (BEAKER) (test code = 415) EOSINOPHILS ABSOLUTE 0.00 K/ L 0.00-0.50 COUNT (BEAKER) (test code = 416) BASOPHILS ABSOLUTE 0.05 K/ L 0.00-0.20 COUNT (BEAKER) (test code = 417) IMMATURE 3 % 0-0 H GRANULOCYTES-RELATIVE PERCENT (BEAKER) (test code = 2801) [id number] 21:47:00 Test Item Value Reference Range Interpretation Comments PARTIAL THROMBOPLASTIN TIME 85.4 seconds 23.2-36.1 H (BEAKER) (test code = 760) POCT-GLUCOSE [id number] 16:24:00 Test Item Value Reference Range Interpretation Comments POC-GLUCOSE METER 189 mg/dL 70-110 H TESTED AT [facility] [address] [facility] (test code [facility] = 1538) [place] [address] [id number] 13:02:00 Test Item Value Reference Range Interpretation Comments PARTIAL THROMBOPLASTIN TIME 51.8 seconds 23.2-36.1 H (BEAKER) (test code = 760) POCT-GLUCOSE [id number] 11:41:00 Test Item Value Reference Range Interpretation Comments POC-GLUCOSE METER 169 mg/dL 70-110 H TESTED AT [facility] [address] [facility] (test code [facility] = 1538) [place] [address] VITAMIN D, [id number] 08:15:00 Test Item Value Reference Range Interpretation Comments VITAMIN D 25-OH (BEAKER) (test code 5.4 ng/mL 6.6-49.9 L = 2764) Effective 12/25/2016: Reference Range ChangeNew: 6.6-49.9 ng/mL Previous: 13.0-47.8 ng/mLRecommended Vitamin D Target Range: 30.0-40.0 ng/mLPOCT-GLUCOSE [id number] 06:20:00 Test Item Value Reference Range Interpretation Comments POC-GLUCOSE METER 158 mg/dL 70-110 H TESTED AT [facility] [address] (BEAKER) (test code [facility] = 1538) [place] [address] HEPATIC FUNCTION [id number] 05:45:00 Test Item Value Reference Range Interpretation Comments TOTAL PROTEIN (BEAKER) 6.5 gm/dL 6.0-8.5 Speci men markedly (test code = 770) hemolyzed ALBUMIN (BEAKER) (test 1.8 g/dL 3.5-5.0 L Speci men markedly code = 1145) hemolyzed BILIRUBIN TOTAL 1.2 mg/dL 0.1-1.3 Specimen michael may (BEAKER) (test code = hemoly zed 377) BILIRUBIN DIRECT 0.1 mg/dL 0.0-0.5 Specimen abeba browning (BEAKER) (test code = hemoly zed 706) ALKALINE PHOSPHATASE 142 U/L 30-115 H (BEAKER) (test code = 346) AST (SGOT) (BEAKER) 49 U/L 5-40 H Specimen markedly (test code = 353) hemolyzed ALT (SGPT) (BEAKER) 28 U/L 6-50 Specimen markedly (test code = 347) hemolyzed [id number] 05:30:00 Test Item Value Reference Range Interpretation Comments PARTIAL THROMBOPLASTIN TIME 63.3 seconds 23.2-36.1 H (BEAKER) (test code = 760) Prior to initiating heparinCBC W/PLT COUNT & AUTO [id number] 05:23:00 Test Item Value Reference Range Interpretation Comments WHITE BLOOD CELL COUNT 27.7 K/ L 4.0-10.0 H (BEAKER) (test code = 775) RED BLOOD CELL COUNT 3.27 M/ L 4.00-5.00 L (BEAKER) (test code = 761) HEMOGLOBIN (BEAKER) 8.8 GM/DL 12.0-15.5 L (test code = 410) HEMATOCRIT (BEAKER) 26.8 % 36.0-46.0 L (test code = 411) MEAN CORPUSCULAR VOLUME 82.0 fL 82.0-99.0 (BEAKER) (test code = 753) MEAN CORPUSCULAR 26.9 pg 27.0-33.0 L HEMOGLOBIN (BEAKER) (test code = 751) MEAN CORPUSCULAR 32.8 GM/DL 32.0-36.0 HEMOGLOBIN CONC (BEAKER) (test code = 752) RED CELL DISTRIBUTION 21.3 % 12.0-15.0 H WIDTH (BEAKER) (test code = 412) PLATELET COUNT (BEAKER) 449 K/CU MM 150-430 H (test code = 756) MEAN PLATELET VOLUME 10.5 fL 6.0-11.5 MPV-Christina roximately (BEAKER) (test code = 20% po sitive bias 754) due to method change. NUCLEATED RED BLOOD 0 /100 WBC 0-0 CELLS (BEAKER) (test code = 413) NEUTROPHILS RELATIVE 88 % PERCENT (BEAKER) (test code = 429) LYMPHOCYTES RELATIVE 4 % PERCENT (BEAKER) (test code = 430) MONOCYTES RELATIVE 5 % PERCENT (BEAKER) (test code = 431) EOSINOPHILS RELATIVE 0 % PERCENT (BEAKER) (test code = 432) BASOPHILS RELATIVE 0 % PERCENT (BEAKER) (test code = 437) NEUTROPHILS ABSOLUTE 24.35 K/ L 1.80-8.00 H COUNT (BEAKER) (test code = 670) LYMPHOCYTES ABSOLUTE 1.11 K/ L 1.48-4.50 L COUNT (BEAKER) (test code = 414) MONOCYTES ABSOLUTE 1.33 K/ L 0.00-1.30 H COUNT (BEAKER) (test code = 415) EOSINOPHILS ABSOLUTE 0.00 K/ L 0.00-0.50 COUNT (BEAKER) (test code = 416) BASOPHILS ABSOLUTE 0.04 K/ L 0.00-0.20 COUNT (BEAKER) (test code = 417) IMMATURE 3 % 0-0 H GRANULOCYTES-RELATIVE PERCENT (BEAKER) (test code = 2801) [id number] 00:59:00 Test Item Value Reference Range Interpretation Comments PARTIAL THROMBOPLASTIN TIME 62.3 seconds 23.2-36.1 H (BEAKER) (test code = 760) POCT-GLUCOSE [id number] 21:34:00 Test Item Value Reference Range Interpretation Comments POC-GLUCOSE METER 196 mg/dL 70-110 H TESTED AT [facility] [address] (BEAKER) (test code [facility] = 1538) [place] [address] [id number] 18:14:00 Test Item Value Reference Range Interpretation Comments PARTIAL THROMBOPLASTIN TIME 82.3 seconds 23.2-36.1 H (BEAKER) (test code = 760) POCT-GLUCOSE [id number] 17:01:00 Test Item Value Reference Range Interpretation Comments POC-GLUCOSE METER 192 mg/dL 70-110 H TESTED AT [facility] [address] (BEAKER) (test code [facility] = 1538) [place] [address] POCT-GLUCOSE [id number] 13:29:00 Test Item Value Reference Range Interpretation Comments POC-GLUCOSE METER 207 mg/dL 70-110 H TESTED AT [facility] [address] (BEAKER) (test code [facility] = 1538) [place] [address] [id number] 12:48:00 Test Item Value Reference Range Interpretation Comments PARTIAL THROMBOPLASTIN TIME 63.3 seconds 23.2-36.1 H (BEAKER) (test code = 760) CBC W/PLT COUNT & AUTO [id number] 12:25:00 Test Item Value Reference Range Interpretation Comments WHITE BLOOD CELL COUNT 33.2 K/ L 4.0-10.0 H (BEAKER) (test code = 775) RED BLOOD CELL COUNT 3.77 M/ L 4.00-5.00 L (BEAKER) (test code = 761) HEMOGLOBIN (BEAKER) 9.8 GM/DL 12.0-15.5 L (test code = 410) HEMATOCRIT (BEAKER) 30.6 % 36.0-46.0 L (test code = 411) MEAN CORPUSCULAR VOLUME 81.2 fL 82.0-99.0 L (BEAKER) (test code = 753) MEAN CORPUSCULAR 26.0 pg 27.0-33.0 L HEMOGLOBIN (BEAKER) (test code = 751) MEAN CORPUSCULAR 32.0 GM/DL 32.0-36.0 HEMOGLOBIN CONC (BEAKER) (test code = 752) RED CELL DISTRIBUTION 21.2 % 12.0-15.0 H WIDTH (BEAKER) (test code = 412) PLATELET COUNT (BEAKER) 364 K/CU MM 150-430 (test code = 756) MEAN PLATELET VOLUME 9.3 fL 6.0-11.5 MPV-Christina roximately (BEAKER) (test code = 20% po sitive bias 754) due to method change. NUCLEATED RED BLOOD 0 /100 WBC 0-0 CELLS (BEAKER) (test code = 413) NEUTROPHILS RELATIVE 92 % PERCENT (BEAKER) (test code = 429) LYMPHOCYTES RELATIVE 4 % PERCENT (BEAKER) (test code = 430) MONOCYTES RELATIVE 2 % PERCENT (BEAKER) (test code = 431) EOSINOPHILS RELATIVE 0 % PERCENT (BEAKER) (test code = 432) BASOPHILS RELATIVE 0 % PERCENT (BEAKER) (test code = 437) NEUTROPHILS ABSOLUTE 30.53 K/ L 1.80-8.00 H COUNT (BEAKER) (test code = 670) LYMPHOCYTES ABSOLUTE 1.17 K/ L 1.48-4.50 L COUNT (BEAKER) (test code = 414) MONOCYTES ABSOLUTE 0.80 K/ L 0.00-1.30 COUNT (BEAKER) (test code = 415) EOSINOPHILS ABSOLUTE 0.00 K/ L 0.00-0.50 COUNT (BEAKER) (test code = 416) BASOPHILS ABSOLUTE 0.08 K/ L 0.00-0.20 COUNT (BEAKER) (test code = 417) IMMATURE 2 % 0-0 H GRANULOCYTES-RELATIVE PERCENT (BEAKER) (test code = 2801) POCT-GLUCOSE [id number] 06:40:00 Test Item Value Reference Range Interpretation Comments POC-GLUCOSE METER 166 mg/dL 70-110 H TESTED AT [facility] [address] (BEAKER) (test code [facility] = 1538) [place] [address] BUN AND [id number] 06:07:00 Test Item Value Reference Range Interpretation Comments BLOOD UREA NITROGEN 15 mg/dL 10-26 (BEAKER) (test code = 354) CREATININE (BEAKER) 0.62 mg/dL 0.50-1.20 (test code = 358) EGFR (BEAKER) (test 120 mL/min/1.73 ESTIM ATED GFR IS code = 1092) sq m NOT ACCURATE CREATININE CLEARANCE IN PREDICTING GLOMERULAR FILTRATION RATE . ESTIMATED GFR I S NOT APPLICABLE FOR DIALYSIS PATIEN TS. Please draw first BUN/ S Creat with the 12 noon Amikacin Blood level draw. Thank [id number] 05:48:00 Test Item Value Reference Range Interpretation Comments PARTIAL THROMBOPLASTIN TIME 60.0 seconds 23.2-36.1 H (BEAKER) (test code = 760) ANTI-NUCLEAR ANTIBODY (TAMMI)2017-11-20 00:24:00 Test Item Value Reference Range Interpretation Comments ANTI-NUCLEAR ANTIBODY (TAMMI) (BEAKER) Negative Negative (test code = 418) Test performed by IFA method.Test performed by IFA method.[id number] 23:01:00 Test Item Value Reference Range Interpretation Comments PARTIAL THROMBOPLASTIN TIME 58.3 seconds 23.2-36.1 H (BEAKER) (test code = 760) POCT-GLUCOSE [id number] 21:22:00 Test Item Value Reference Range Interpretation Comments POC-GLUCOSE METER 171 mg/dL 70-110 H TESTED AT [facility] [address] ([facility] (test code [facility] = 1538) [place] [address] POCT-GLUCOSE [id number] 16:54:00 Test Item Value Reference Range Interpretation Comments POC-GLUCOSE METER 135 mg/dL 70-110 H TESTED AT [facility] [address] ([facility] (test code [facility] = 1538) [place] [address] PERIPHERAL BLOOD SMEAR - PATHOLOGIST [id number] 15:35:00 Test Item Value Reference Range Interpretation Comments PERIPHERAL SMR REVIEW Neutrophilic (BEAKER) (test code = leukocytosis with 2640) increased band forms and unremarkable WBC morphology. Normocytic anemia with unremarkable RBCs. Platelets unremarkable. No dysmorphic or blast forms seen. [id number] Nazario Becker M.D. ([facility]) (test code = (electronic signature) 4746) (MANUAL DIFFERENTIAL)2017-11-19 15:31:00 Test Item Value Reference Range Interpretation Comments NEUTROPHILS - REL (DIFF) (BEAKER) 77 % (test code = 1359) LYMPHOCYTES - REL (DIFF) (BEAKER) 3 % (test code = 1360) MONOCYTES - REL (DIFF) (BEAKER) 8 % (test code = 1361) EOSINOPHILS - REL (DIFF) (BEAKER) 1 % (test code = 1362) BANDS - REL (DIFF) (BEAKER) (test 11 % 0-10 H code = 1348) NEUTROPHILS - ABS (DIFF) (BEAKER) 25.18 K/ L 1.80-8.00 H (test code = 1365) LYMPHOCYTES - ABS (DIFF) (BEAKER) 0.98 K/ L 1.48-4.50 L (test code = 1366) MONOCYTES - ABS (DIFF) (BEAKER) 2.62 K/ L 0.00-1.30 H (test code = 1367) EOSINOPHILS - ABS (DIFF) (BEAKER) 0.33 K/ L 0.00-0.50 (test code = 1368) BANDS-ABS (DIFF) (BEAKER) (test 3.6 K/ L 0.0-0.8 H code = 1349) TOTAL COUNTED (BEAKER) (test code 100 = 1351) BANDS + SEGMENTED NEUTROPHILS 28.78 (BEAKER) (test code = 1352) WBC MORPHOLOGY (BEAKER) (test code Normal = 487) PLT MORPHOLOGY (BEAKER) (test code Normal = 486) TARGET CELLS (BEAKER) (test code = 1+ few 480) [id number] 15:21:00 Test Item Value Reference Range Interpretation Comments PARTIAL THROMBOPLASTIN TIME 39.3 seconds 23.2-36.1 H (BEAKER) (test code = 760) POCT-GLUCOSE [id number] 13:08:00 Test Item Value Reference Range Interpretation Comments POC-GLUCOSE METER 140 mg/dL 70-110 H TESTED AT [facility] [address] (BEAKER) (test code [facility] = 1538) [place] [address] CBC W/PLT COUNT & AUTO [id number] 09:33:00 Test Item Value Reference Range Interpretation Comments WHITE BLOOD CELL COUNT 32.7 K/ L 4.0-10.0 H (BEAKER) (test code = 775) RED BLOOD CELL COUNT 3.24 M/ L 4.00-5.00 L (BEAKER) (test code = 761) HEMOGLOBIN (BEAKER) 8.6 GM/DL 12.0-15.5 L (test code = 410) HEMATOCRIT (BEAKER) 26.7 % 36.0-46.0 L (test code = 411) MEAN CORPUSCULAR VOLUME 82.4 fL 82.0-99.0 (BEAKER) (test code = 753) MEAN CORPUSCULAR 26.5 pg 27.0-33.0 L HEMOGLOBIN (BEAKER) (test code = 751) MEAN CORPUSCULAR 32.2 GM/DL 32.0-36.0 HEMOGLOBIN CONC (BEAKER) (test code = 752) RED CELL DISTRIBUTION 20.9 % 12.0-15.0 H WIDTH (BEAKER) (test code = 412) PLATELET COUNT (BEAKER) 375 K/CU MM 150-430 (test code = 756) MEAN PLATELET VOLUME 8.8 fL 6.0-11.5 MPV-Christina roximately (BEAKER) (test code = 20% po sitive bias 754) due to method change. NUCLEATED RED BLOOD 0 /100 WBC 0-0 CELLS (BEAKER) (test code = 413) BUN AND [id number] 08:45:00 Test Item Value Reference Range Interpretation Comments BLOOD UREA NITROGEN 12 mg/dL 10-26 (BEAKER) (test code = 354) CREATININE (BEAKER) 0.61 mg/dL 0.50-1.20 (test code = 358) EGFR (BEAKER) (test 123 mL/min/1.73 ESTIM ATED GFR IS code = 1092) sq m NOT ACCURATE CREATININE CLEARANCE IN PREDICTING GLOMERULAR FILTRATION RATE . ESTIMATED GFR I S NOT APPLICABLE FOR DIALYSIS PATIEN TS. Please draw first BUN/ S Creat with the 12 noon Amikacin Blood level draw. Thank [id number] 08:27:00 Test Item Value Reference Range Interpretation Comments PARTIAL THROMBOPLASTIN TIME 29.5 seconds 23.2-36.1 (BEAKER) (test code = 760) POCT-GLUCOSE [id number] 04:48:00 Test Item Value Reference Range Interpretation Comments POC-GLUCOSE METER 142 mg/dL 70-110 H TESTED AT [facility] [address] (BEAKER) (test code [facility] = 1538) [place] [address] RHEUMATOID FACTOR AB, REFLEX TO [id number] 01:10:00 Test Item Value Reference Range Interpretation Comments RHEUMATOID FACTOR (BEAKER) (test Negative code = 573) [id number] 00:56:00 Test Item Value Reference Range Interpretation Comments PROTIME (BEAKER) (test code = 17.9 seconds 11.8-14.4 H 759) INR (BEAKER) (test code = 370) 1.4 1.2-1.5 PARTIAL THROMBOPLASTIN TIME 48.9 seconds 23.2-36.1 H (HARDIK) (test code = 760) RECOMMENDED COUMADIN/WARFARIN INR THERAPY RANGESSTANDARD DOSE: 2.0 - 3.0 Includes: PROPHYLAXIS forvenous thrombosis, systemic embolization; TREATMENT for venous thrombosis and/or pulmonary embolus.HIGH RISK: Target INR is 2.5-3.5 for patients with mechanical heart valves.VENOUS DOPPLER LEGS, [id number] 22:05:00Reason for exam:->leukocytosis persistentFINAL REPORT CLINICAL HISTORY: Lower extremity swelling. Right lower extremity venous Doppler dated 06/23/2017 COMMENT: Real-time grayscale, color and spectral Doppler ultrasound examination of the right lower extremity was performed. Please note that the examination was ordered is a bilateral lower extremity venous Doppler but the patient deferred evaluation of the left leg because of pain. No images of the left lower extremity venous system were performed. The right common femoral, superficial femoral, greater saphenous, profunda femoral, popliteal, posterior tibial, and peroneal veins are patent without filling defect present. There is normal compressibility and augmentation in the veins of the right lower extremity. IMPRESSION: Unremarkable Doppler ultrasound of veins of the right lower extremity without deep venous thrombosis. Signed: Stone Machuca Verified Date/Time: 11/18/2017 22:05:25 Reading Location: [address] Reading Room POCT-GLUCOSE [id number] 20:56:00 Test Item Value Reference Range Interpretation Comments POC-GLUCOSE METER 111 mg/dL 70-110 H TESTED AT [facility] [address] (HARDIK) (test code [facility] = 1538) [place] [address] AMIKACIN LEVEL, [id number] 17:26:00 Test Item Value Reference Range Interpretation Comments AMIKACIN, TROUGH (HARDIK) (test 10.3 ug/mL 4.0-8.0 HH code = 1830) Therapeutic Range (ug/mL)Peak: 25.0-35.0Trough: 4.0-8.0 Toxic: >35.0VENOUS DOPPLER ARMS, [id number] 16:59:00Reason for exam:->swelling right handAddendum BeginsREPORT STATUS:A Addendum:A left-sided PICC is visualized. End of addendum. Signed: Dangelo Proctor MDReport Verified Date/Time: 11/18/2017 16:59:45 Reading Location: [facility] Radiology Reading RoomAddendum EndsFINAL REPORT Bilateral upper e xtremity venous Doppler dated 11/18/2017. HISTORY: Right hand swelling COMPARISON: None Findings: There is occlusive thrombus in the left axillary extending into the left proximal basilic vein. Occlusivethrombus is also seen in the mid left cephalic vein. The radial, ulnar, brachial, right basilic, right cephalic, right axillary, subclavian and internal jugular veins are patent without filling defect. There is normal compressibility and augmentation in the veins of upper extremities with the exception of the left axillary, left basilic and left cephalic veins. IMPRESSION: Occlusive thrombus in the left upper shoulder is described above. These findings were communicated to SILAS Neff at 3:30 PM. Signed: Dangelo Proctor MDReport Verified Date/Time: 11/18/2017 15:36:41 [facility] POCT-GLUCOSE [id number] 16:58:00 Test Item Value Reference Range Interpretation Comments POC-GLUCOSE METER 100 mg/dL 70-110 TESTED AT [facility] [address] ([facility]) (test code [place] [facility] = 1538) [place] [address] POCT-GLUCOSE [id number] 11:30:00 Test Item Value Reference Range Interpretation Comments POC-GLUCOSE METER 119 mg/dL 70-110 H TESTED AT [facility] [address] ([facility]) (test code [place] [facility] = 1538) [place] [address] HEPATITIS B SURFACE [id number] 11:18:00 Test Item Value Reference Range Interpretation Comments HEPATITIS B SURFACE ANTIBODY 436.5 mIU/mL <8.0 H ([facility]) (test code = 647) HEPATITIS C [id number] 11:18:00 Test Item Value Reference Range Interpretation Comments HEPATITIS C ANTIBODY (BEAKER) Nonreactive Nonreactive (test code = 367) AMIKACIN LEVEL, [id number] 11:03:00 Test Item Value Reference Range Interpretation Comments AMIKACIN, PEAK (BEAKER) (test code 26.0 ug/mL 25.0-35.0 = 1831) Therapeutic Range (ug/mL)Peak: 25.0-35.0Trough: 4.0-8.0 Toxic: >35.0 SURGICALLY OBTAINED CULTURE + GRAM [id number] 08:25:00 Test Item Value Reference Interpretation Comments Range CULTURE (BEAKER) COAGULASE NEGATIVE A From Broth Only (test code = 1095) STAPHYLOCOCCUS Coagula se negative Staphylococcus Clindamycin (test R code = 10) Erythromycin (test R code = 4) Oxacillin (test S code = 14) Rifampin (test S code = 43) Tetracycline (test S code = 2) Vancomycin (test S code = 13) GRAM STAIN RESULT No White blood (BEAKER) (test cells seen code = 1123) GRAM STAIN RESULT No organisms seen (BEAKER) (test code = 905811) ANAEROBIC [id number] 07:53:00 Test Item Value Reference Range Interpretation Comments CULTURE (BEAKER) (test No anaerobes isolated code = 1095) GRAM STAIN RESULT 1+ WBCs (BEAKER) (test code = 1123) GRAM STAIN RESULT No organisms seen (BEAKER) (test code = 71018) POCT-GLUCOSE [id number] 06:37:00 Test Item Value Reference Range Interpretation Comments POC-GLUCOSE METER 135 mg/dL 70-110 H TESTED AT [facility] [address] (BEAKER) (test code [facility] = 1538) [place] [address] HIV-1 ANTIGEN WITH HIV-1/2 [id number] 05:51:00 Test Item Value Reference Range Interpretation Comments HIV-1 ANTIGEN WITH HIV 1\T\2 Nonreactive Nonreactive ANTIBODY (2) (BEAKER) (test code = 2586) HEPATITIS B SURFACE [id number] 05:46:00 Test Item Value Reference Range Interpretation Comments HEPATITIS B SURFACE ANTIGEN (2) Nonreactive Nonreactive (BEAKER) (test code = 2585) CBC W/PLT COUNT & AUTO [id number] 05:11:00 Test Item Value Reference Range Interpretation Comments WHITE BLOOD CELL COUNT 32.2 K/ L 4.0-10.0 H (BEAKER) (test code = 775) RED BLOOD CELL COUNT 3.28 M/ L 4.00-5.00 L (BEAKER) (test code = 761) HEMOGLOBIN (BEAKER) 8.8 GM/DL 12.0-15.5 L (test code = 410) HEMATOCRIT (BEAKER) 26.7 % 36.0-46.0 L (test code = 411) MEAN CORPUSCULAR VOLUME 81.4 fL 82.0-99.0 L (BEAKER) (test code = 753) MEAN CORPUSCULAR 26.8 pg 27.0-33.0 L HEMOGLOBIN (BEAKER) (test code = 751) MEAN CORPUSCULAR 33.0 GM/DL 32.0-36.0 HEMOGLOBIN CONC (BEAKER) (test code = 752) RED CELL DISTRIBUTION 20.6 % 12.0-15.0 H WIDTH (BEAKER) (test code = 412) PLATELET COUNT (BEAKER) 385 K/CU MM 150-430 (test code = 756) MEAN PLATELET VOLUME 8.5 fL 6.0-11.5 MPV-Christina roximately (BEAKER) (test code = 20% po sitive bias 754) due to method change. NUCLEATED RED BLOOD 0 /100 WBC 0-0 CELLS (BEAKER) (test code = 413) NEUTROPHILS RELATIVE 86 % PERCENT (BEAKER) (test code = 429) LYMPHOCYTES RELATIVE 3 % PERCENT (BEAKER) (test code = 430) MONOCYTES RELATIVE 8 % PERCENT (BEAKER) (test code = 431) EOSINOPHILS RELATIVE 1 % PERCENT (BEAKER) (test code = 432) BASOPHILS RELATIVE 0 % PERCENT (BEAKER) (test code = 437) NEUTROPHILS ABSOLUTE 27.61 K/ L 1.80-8.00 H COUNT (BEAKER) (test code = 670) LYMPHOCYTES ABSOLUTE 0.84 K/ L 1.48-4.50 L COUNT (BEAKER) (test code = 414) MONOCYTES ABSOLUTE 2.64 K/ L 0.00-1.30 H COUNT (BEAKER) (test code = 415) EOSINOPHILS ABSOLUTE 0.21 K/ L 0.00-0.50 COUNT (BEAKER) (test code = 416) BASOPHILS ABSOLUTE 0.08 K/ L 0.00-0.20 COUNT (BEAKER) (test code = 417) IMMATURE 3 % 0-0 H GRANULOCYTES-RELATIVE PERCENT (BEAKER) (test code = 2801) Smear reviewed. Results confirmed.POCT-GLUCOSE [id number] 23:01:00 Test Item Value Reference Range Interpretation Comments POC-GLUCOSE METER 111 mg/dL 70-110 H TESTED AT [facility] [address] ([facility]) (test code [facility] = 1538) [place] [address] POCT-GLUCOSE [id number] 17:15:00 Test Item Value Reference Range Interpretation Comments POC-GLUCOSE METER 100 mg/dL 70-110 TESTED AT [facility] [address] ([facility]) (test code [facility] = 1538) [place] [address] C-REACTIVE [id number] 14:34:00 Test Item Value Reference Range Interpretation Comments [facility] PROTEIN [facility] (test 35.06 mg/dL 0.00-0.50 H code = 676) POCT-GLUCOSE [id number] 12:50:00 Test Item Value Reference Range Interpretation Comments POC-GLUCOSE METER 221 mg/dL 70-110 H TESTED AT [facility] [address] ([facility]) (test code [facility] = 1538) [place] [address] CBC W/PLT COUNT & AUTO [id number] 10:56:00 Test Item Value Reference Range Interpretation Comments WHITE BLOOD CELL COUNT 34.9 K/ L 4.0-10.0 H (BEAKER) (test code = 775) RED BLOOD CELL COUNT 3.27 M/ L 4.00-5.00 L (BEAKER) (test code = 761) HEMOGLOBIN (BEAKER) 8.7 GM/DL 12.0-15.5 L (test code = 410) HEMATOCRIT (BEAKER) 26.6 % 36.0-46.0 L (test code = 411) MEAN CORPUSCULAR VOLUME 81.3 fL 82.0-99.0 L (BEAKER) (test code = 753) MEAN CORPUSCULAR 26.6 pg 27.0-33.0 L HEMOGLOBIN (BEAKER) (test code = 751) MEAN CORPUSCULAR 32.7 GM/DL 32.0-36.0 HEMOGLOBIN CONC (BEAKER) (test code = 752) RED CELL DISTRIBUTION 20.2 % 12.0-15.0 H WIDTH (BEAKER) (test code = 412) PLATELET COUNT (BEAKER) 432 K/CU MM 150-430 H (test code = 756) MEAN PLATELET VOLUME 8.6 fL 6.0-11.5 MPV-Christina roximately (BEAKER) (test code = 20% po sitive bias 754) due to method change. NUCLEATED RED BLOOD 0 /100 WBC 0-0 CELLS (BEAKER) (test code = 413) NEUTROPHILS RELATIVE 86 % PERCENT (BEAKER) (test code = 429) LYMPHOCYTES RELATIVE 3 % PERCENT (BEAKER) (test code = 430) MONOCYTES RELATIVE 7 % PERCENT (BEAKER) (test code = 431) EOSINOPHILS RELATIVE 1 % PERCENT (BEAKER) (test code = 432) BASOPHILS RELATIVE 0 % PERCENT (BEAKER) (test code = 437) NEUTROPHILS ABSOLUTE 29.93 K/ L 1.80-8.00 H COUNT (BEAKER) (test code = 670) LYMPHOCYTES ABSOLUTE 1.14 K/ L 1.48-4.50 L COUNT (BEAKER) (test code = 414) MONOCYTES ABSOLUTE 2.57 K/ L 0.00-1.30 H COUNT (BEAKER) (test code = 415) EOSINOPHILS ABSOLUTE 0.19 K/ L 0.00-0.50 COUNT (BEAKER) (test code = 416) BASOPHILS ABSOLUTE 0.09 K/ L 0.00-0.20 COUNT (BEAKER) (test code = 417) IMMATURE 3 % 0-0 H GRANULOCYTES-RELATIVE PERCENT (BEAKER) (test code = 2801) POCT-GLUCOSE [id number] 10:03:00 Test Item Value Reference Range Interpretation Comments POC-GLUCOSE METER 104 mg/dL 70-110 TESTED AT [facility] [address] (BEAKER) (test code [facility] = 1538) [place] [address] BASIC METABOLIC [id number] 04:51:00 Test Item Value Reference Range Interpretation Comments SODIUM (BEAKER) 138 meq/L 135-148 (test code = 381) POTASSIUM (BEAKER) 4.2 meq/L 3.5-5.5 (test code = 379) CHLORIDE (BEAKER) 107 meq/L 98-106 H (test code = 382) CO2 (BEAKER) (test 22 meq/L 20-31 code = 355) BLOOD UREA NITROGEN 17 mg/dL 10-26 ([facility]) (test code = 354) CREATININE (BEAKER) 0.67 mg/dL 0.50-1.20 (test code = 358) GLUCOSE RANDOM 106 mg/dL 70-110 ([facility]) (test code = 652) CALCIUM (BEAKER) 8.2 mg/dL 8.5-10.5 L (test code = 697) EGFR ([facility] (test 110 mL/min/1.73 ESTIM ATED GFR IS code = 1092) sq m NOT ACCURATE CREATININE CLEARANCE IN PREDICTING GLOMERULAR FILTRATION RATE . ESTIMATED GFR I S NOT APPLICABLE FOR DIALYSIS PATIEN TS. POCT-GLUCOSE [id number] 20:41:00 Test Item Value Reference Range Interpretation Comments POC-GLUCOSE METER 127 mg/dL 70-110 H TESTED AT [facility] [address] ([facility]) (test code [facility] = 1538) [place] [address] POCT-GLUCOSE [id number] 17:03:00 Test Item Value Reference Range Interpretation Comments POC-GLUCOSE METER 145 mg/dL 70-110 H TESTED AT [facility] [address] ([facility]) (test code [facility] = 1538) [place] [address] [id number] 12:39:00 Test Item Value Reference Range Interpretation Comments PROCALCITONIN ([facility]) (test code 1.27 ng/mL <0.05 H = 3036) SEPSIS RISK (ng/mL)Low: 0.05-0.50Intermediate: 0.51-2.00High: >=2.01POCT-GLUCOSE [id number] 11:58:00 Test Item Value Reference Range Interpretation Comments POC-GLUCOSE METER 120 mg/dL 70-110 H TESTED AT [facility] [address] ([facility]) (test code [facility] = 1538) [place] [address] CBC W/PLT COUNT & AUTO [id number] 09:50:00 Test Item Value Reference Range Interpretation Comments WHITE BLOOD CELL COUNT 34.2 K/ L 4.0-10.0 H Smear reviewed. ([facility]) (test code = Result s confirmed. 775) RED BLOOD CELL COUNT 3.21 M/ L 4.00-5.00 L (BEAKER) (test code = 761) HEMOGLOBIN (BEAKER) 8.6 GM/DL 12.0-15.5 L (test code = 410) HEMATOCRIT (BEAKER) 26.0 % 36.0-46.0 L (test code = 411) MEAN CORPUSCULAR VOLUME 81.0 fL 82.0-99.0 L (BEAKER) (test code = 753) MEAN CORPUSCULAR 26.8 pg 27.0-33.0 L HEMOGLOBIN (BEAKER) (test code = 751) MEAN CORPUSCULAR 33.1 GM/DL 32.0-36.0 HEMOGLOBIN CONC (BEAKER) (test code = 752) RED CELL DISTRIBUTION 19.4 % 12.0-15.0 H WIDTH (BEAKER) (test code = 412) PLATELET COUNT (BEAKER) 443 K/CU MM 150-430 H (test code = 756) MEAN PLATELET VOLUME 9.2 fL 6.0-11.5 MPV-Christina roximately (BEAKER) (test code = 20% po sitive bias 754) due to method change. NUCLEATED RED BLOOD 0 /100 WBC 0-0 CELLS (BEAKER) (test code = 413) NEUTROPHILS RELATIVE 86 % PERCENT (BEAKER) (test code = 429) LYMPHOCYTES RELATIVE 3 % PERCENT (BEAKER) (test code = 430) MONOCYTES RELATIVE 7 % PERCENT (BEAKER) (test code = 431) EOSINOPHILS RELATIVE 1 % PERCENT (BEAKER) (test code = 432) BASOPHILS RELATIVE 0 % PERCENT (BEAKER) (test code = 437) NEUTROPHILS ABSOLUTE 29.46 K/ L 1.80-8.00 H COUNT (BEAKER) (test code = 670) LYMPHOCYTES ABSOLUTE 1.04 K/ L 1.48-4.50 L COUNT (BEAKER) (test code = 414) MONOCYTES ABSOLUTE 2.49 K/ L 0.00-1.30 H COUNT (BEAKER) (test code = 415) EOSINOPHILS ABSOLUTE 0.26 K/ L 0.00-0.50 COUNT (BEAKER) (test code = 416) BASOPHILS ABSOLUTE 0.08 K/ L 0.00-0.20 COUNT (BEAKER) (test code = 417) IMMATURE 3 % 0-0 H GRANULOCYTES-RELATIVE PERCENT (BEAKER) (test code = 2801) POCT-GLUCOSE [id number] 06:32:00 Test Item Value Reference Range Interpretation Comments POC-GLUCOSE METER 124 mg/dL 70-110 H TESTED AT [facility] [address] (BEAKER) (test code [facility] = 1538) [place] [address] BASIC METABOLIC [id number] 06:27:00 Test Item Value Reference Range Interpretation Comments SODIUM (BEAKER) 141 meq/L 135-148 (test code = 381) POTASSIUM (BEAKER) 4.2 meq/L 3.5-5.5 (test code = 379) CHLORIDE (BEAKER) 109 meq/L 98-106 H (test code = 382) CO2 (BEAKER) (test 24 meq/L 20-31 code = 355) BLOOD UREA NITROGEN 19 mg/dL 10-26 (BEAKER) (test code = 354) CREATININE (BEAKER) 0.68 mg/dL 0.50-1.20 (test code = 358) GLUCOSE RANDOM 109 mg/dL 70-110 (BEAKER) (test code = 652) CALCIUM (BEAKER) 7.9 mg/dL 8.5-10.5 L (test code = 697) EGFR (BEAKER) (test 108 mL/min/1.73 ESTIM ATED GFR IS code = 1092) sq m NOT ACCURATE CREATININE CLEARANCE IN PREDICTING GLOMERULAR FILTRATION RATE . ESTIMATED GFR I S NOT APPLICABLE FOR DIALYSIS PATIEN TS. BUN AND [id number] 06:26:00 Test Item Value Reference Range Interpretation Comments BLOOD UREA NITROGEN 19 mg/dL 10-26 (BEAKER) (test code = 354) CREATININE (BEAKER) 0.68 mg/dL 0.50-1.20 (test code = 358) EGFR (BEAKER) (test 108 mL/min/1.73 ESTIM ATED GFR IS code = 1092) sq m NOT ACCURATE CREATININE CLEARANCE IN PREDICTING GLOMERULAR FILTRATION RATE . ESTIMATED GFR I S NOT APPLICABLE FOR DIALYSIS PATIEN TS. HEMOGLOBIN AND [id number] 06:03:00 Test Item Value Reference Range Interpretation Comments HEMOGLOBIN (BEAKER) (test code = 8.6 GM/DL 12.0-15.5 L 410) HEMATOCRIT (BEAKER) (test code = 25.9 % 36.0-46.0 L 411) CT, CHEST, WITHOUT [id number] 22:51:00FINAL REPORT CLINICAL HISTORY: Leukocytosis FINDINGS: Multiple axial images of the chest, abdomen and pelvis were performed without IV contrast. Oral contrast was not given. This exam was performed according to our departmental dose- optimization program, which includes automated exposure control, adjustment of the mA and/or kV according to patient size and/or use of the iterative reconstruction technique. Comparison: None. Chest: Lung parenchyma: Motion artifact. Low lung volumes. Bilateral dependent atelectasis. No focal consolidation. Pleural effusion: Trace bilateral effusions Pneumothorax: None. Tracheobronchial tree: No significant findings. Pulmonary vasculature: Central prominence, probably related to low lung volumes but mild vascular congestion may be present. Cardiac contours and great vessels: No significant findings. Mediastinum: No significant findings. Lymph Nodes: No adenopathy in the mediastinum or juan. Skeleton: No acute abnormality. Other: Previous left mastectomy. Right breast prosthesis in place. Left PICC line. Abdomen and pelvis: Liver: No significant findings. Gallbladder and biliary tree: No significant findings. Spleen: No significant findings. Adrenal Glands: No significant findings. Kidneys and ureters: No significant findings. Stomach and Duodenum: No significant findings. Pancreas: No significant findings. Bowel: No significant findings. Appendix: Normal. Bladder: No significant findings. Major vascular structures: No significant findings. Reproductive organs: Previous hysterectomy Other: No free air, fluid or adenopathy. Subcutaneous edema. Skeleton: Previous right total hip arthroplasty. IMPRESSION: Trace bilateral pleural effusions and adjacent atelectasis. Pneumonitis should be excluded clinically. Otherwise no CT abnormality in the chest, abdomen or pelvis to explain the patient's leukocytosis. Postsurgical changes, as described. Signed: Stone Machuca MDReport Verified Date/Time: 11/15/2017 22:51:35 Reading Location: [address] Reading Room [place], [id number] 22:51:00FINAL REPORT CLINICAL HISTORY: Leukocytosis FINDINGS: Multiple axial images of the chest, abdomen and pelvis were performed without IV contrast. Oral contrast was not given. This exam was performed according to our departmental dose-optimization program, which includes automated exposure control, adjustment of the mA and/or kV according to patient size and/or use of the iterative reconstruction technique. Comparison: None. Chest: Lung parenchyma: Motion artifact. Low lung volumes. Bilateral dependent atelectasis. No focal consolidation. Pleural effusion: Trace bilateral effusions Pneumothorax: None. Tracheobronchial tree: No significant findings. Pulmonary vasculature: Central prominence, probably related to low lung volumes but mild vascular congestion may be present. Cardiac contours and great vessels: No significant findings. Mediastinum: No significant findings. Lymph Nodes: No adenopathy in the mediastinum or juan. Skeleton: No acute abnormality. Other: Previous left mastectomy. Right breast prosthesis in place. Left PICC line. Abdomen and pelvis: Liver: No significant findings. Gallbladder and biliary tree: No significant findings. Spleen: No significant findings. Adrenal Glands: No significant findings. Kidneys and ureters: No significant findings. Stomach andDuodenum: No significant findings. Pancreas: No significant findings. Bowel: No significant findings. Appendix: Normal. Bladder: No significant findings. Major vascular structures: No significant findings. Reproductive organs: Previous hysterectomy Other: No free air, fluid or adenopathy. Subcutaneous edema. Skeleton: Previous right total hip arthroplasty. IMPRESSION: Trace bilateral pleural effusions and adjacent atelectasis. Pneumonitis should be excluded clinically. Otherwise no CT abnormality in the chest, abdomen or pelvis to explain the patient's leukocytosis. Postsurgical changes, as described. Signed: Stone Machuca Verified Date/Time: 11/15/2017 22:51:35 Reading Location: [address] Reading Room POCT-GLUCOSE [id number] 21:14:00 Test Item Value Reference Range Interpretation Comments POC-GLUCOSE METER 128 mg/dL 70-110 H TESTED AT [address] ([facility] (test code [facility] = 1538) [place] [address] POCT-GLUCOSE [id number] 17:10:00 Test Item Value Reference Range Interpretation Comments POC-GLUCOSE METER 109 mg/dL 70-110 TESTED AT [address] ([facility]) (test code [place] [facility] = 1538) [place] [address] POCT-GLUCOSE [id number] 12:15:00 Test Item Value Reference Range Interpretation Comments POC-GLUCOSE METER 116 mg/dL 70-110 H TESTED AT [facility] [address] (BEAKER) (test code [facility] = 1538) [place] [address] SPIN/CONCENTRATION [id number] 10:39:00 Test Item Value Reference Range Interpretation Comments CONCENTRATION CHARGED (BEAKER) (test Done code = 9483) CBC W/PLT COUNT & AUTO [id number] 09:22:00 Test Item Value Reference Range Interpretation Comments WHITE BLOOD CELL COUNT 34.3 K/ L 4.0-10.0 H Smear reviewed. (BEAKER) (test code = Result s confirmed. 775) RED BLOOD CELL COUNT 2.54 M/ L 4.00-5.00 L (BEAKER) (test code = 761) HEMOGLOBIN (BEAKER) 6.4 GM/DL 12.0-15.5 L (test code = 410) HEMATOCRIT (BEAKER) 19.3 % 36.0-46.0 LL (test code = 411) MEAN CORPUSCULAR VOLUME 78.0 fL 82.0-99.0 L (BEAKER) (test code = 753) MEAN CORPUSCULAR 25.2 pg 27.0-33.0 L HEMOGLOBIN (BEAKER) (test code = 751) MEAN CORPUSCULAR 32.3 GM/DL 32.0-36.0 HEMOGLOBIN CONC (BEAKER) (test code = 752) RED CELL DISTRIBUTION 19.8 % 12.0-15.0 H WIDTH (BEAKER) (test code = 412) PLATELET COUNT (BEAKER) 391 K/CU MM 150-430 (test code = 756) MEAN PLATELET VOLUME 9.0 fL 6.0-11.5 MPV-Christina roximately (BEAKER) (test code = 20% po sitive bias 754) due to method change. NUCLEATED RED BLOOD 0 /100 WBC 0-0 CELLS (BEAKER) (test code = 413) NEUTROPHILS RELATIVE 85 % PERCENT (BEAKER) (test code = 429) LYMPHOCYTES RELATIVE 4 % PERCENT (BEAKER) (test code = 430) MONOCYTES RELATIVE 7 % PERCENT (BEAKER) (test code = 431) EOSINOPHILS RELATIVE 0 % PERCENT (BEAKER) (test code = 432) BASOPHILS RELATIVE 0 % PERCENT (BEAKER) (test code = 437) NEUTROPHILS ABSOLUTE 29.10 K/ L 1.80-8.00 H COUNT (BEAKER) (test code = 670) LYMPHOCYTES ABSOLUTE 1.31 K/ L 1.48-4.50 L COUNT (BEAKER) (test code = 414) MONOCYTES ABSOLUTE 2.40 K/ L 0.00-1.30 H COUNT (BEAKER) (test code = 415) EOSINOPHILS ABSOLUTE 0.14 K/ L 0.00-0.50 COUNT (BEAKER) (test code = 416) BASOPHILS ABSOLUTE 0.08 K/ L 0.00-0.20 COUNT (BEAKER) (test code = 417) IMMATURE 4 % 0-0 H GRANULOCYTES-RELATIVE PERCENT (BEAKER) (test code = 2801) TYPE AND SCREEN, [id number] 08:18:00 Test Item Value Reference Range Interpretation Comments ABO/RH AUTOMATED (BEAKER) (test B POSITIVE code = 2260) AB SCREEN (BEAKER) (test code = NEGATIVE 923) ANAEROBIC [id number] 07:55:00 Test Item Value Reference Range Interpretation Comments CULTURE (BEAKER) (test No anaerobes isolated code = 1095) BASIC METABOLIC [id number] 05:40:00 Test Item Value Reference Range Interpretation Comments SODIUM (BEAKER) 141 meq/L 135-148 (test code = 381) POTASSIUM (BEAKER) 4.1 meq/L 3.5-5.5 (test code = 379) CHLORIDE (BEAKER) 110 meq/L 98-106 H (test code = 382) CO2 (BEAKER) (test 22 meq/L 20-31 code = 355) BLOOD UREA NITROGEN 18 mg/dL 10-26 (BEAKER) (test code = 354) CREATININE (BEAKER) 0.68 mg/dL 0.50-1.20 (test code = 358) GLUCOSE RANDOM 100 mg/dL 70-110 (BEAKER) (test code = 652) CALCIUM (BEAKER) 7.6 mg/dL 8.5-10.5 L (test code = 697) EGFR (BEAKER) (test 108 mL/min/1.73 ESTIM ATED GFR IS code = 1092) sq m NOT ACCURATE CREATININE CLEARANCE IN PREDICTING GLOMERULAR FILTRATION RATE . ESTIMATED GFR I S NOT APPLICABLE FOR DIALYSIS PATIEN TS. BUN AND [id number] 05:37:00 Test Item Value Reference Range Interpretation Comments BLOOD UREA NITROGEN 18 mg/dL 10-26 (BEAKER) (test code = 354) CREATININE (BEAKER) 0.68 mg/dL 0.50-1.20 (test code = 358) EGFR (BEAKER) (test 108 mL/min/1.73 ESTIM ATED GFR IS code = 1092) sq m NOT ACCURATE CREATININE CLEARANCE IN PREDICTING GLOMERULAR FILTRATION RATE . ESTIMATED GFR I S NOT APPLICABLE FOR DIALYSIS PATIEN TS. VANCOMYCIN LEVEL, [id number] 05:36:00 Test Item Value Reference Range Interpretation Comments VANCOMYCIN TROUGH ([facility]) (test 17.5 ug/mL 10.0-20.0 code = 522) HEMOGLOBIN AND [id number] 05:23:00 Test Item Value Reference Range Interpretation Comments HEMOGLOBIN (BEAKER) (test code = 6.4 GM/DL 12.0-15.5 L 410) HEMATOCRIT ([facility]) (test code = 19.3 % 36.0-46.0 LL 411) POCT-GLUCOSE [id number] 16:12:00 Test Item Value Reference Range Interpretation Comments POC-GLUCOSE METER 129 mg/dL 70-110 H TESTED AT [facility] [address] ([facility]) (test code [facility] = 1538) [place] [address] POCT-GLUCOSE [id number] 12:07:00 Test Item Value Reference Range Interpretation Comments POC-GLUCOSE METER 114 mg/dL 70-110 H TESTED AT [facility] [address] ([facility]) (test code [facility] = 1538) [place] [address] POCT-GLUCOSE [id number] 10:00:00 Test Item Value Reference Range Interpretation Comments POC-GLUCOSE METER 97 mg/dL 70-110 TESTED AT [facility] [address] ([facility]) (test code = [facility] 1538) [place] [address] SURGICALLY OBTAINED CULTURE + GRAM [id number] 09:36:00 Test Item Value Reference Range Interpretation Comments CULTURE ([facility]) (test code No growth = 1095) GRAM STAIN RESULT ([facility]) <1+ WBCs (test code = 1123) GRAM STAIN RESULT ([facility]) No organisms seen (test code = 23329) POCT-GLUCOSE [id number] 06:06:00 Test Item Value Reference Range Interpretation Comments POC-GLUCOSE METER 105 mg/dL 70-110 TESTED AT [facility] [address] (BEAKER) (test code [facility] = 1538) [place] [address] BASIC METABOLIC [id number] 05:55:00 Test Item Value Reference Range Interpretation Comments SODIUM (BEAKER) 138 meq/L 135-148 (test code = 381) POTASSIUM (BEAKER) 4.0 meq/L 3.5-5.5 (test code = 379) CHLORIDE (BEAKER) 108 meq/L 98-106 H (test code = 382) CO2 (BEAKER) (test 23 meq/L 20-31 code = 355) BLOOD UREA NITROGEN 18 mg/dL 10-26 (BEAKER) (test code = 354) CREATININE (BEAKER) 0.72 mg/dL 0.50-1.20 (test code = 358) GLUCOSE RANDOM 105 mg/dL 70-110 (BEAKER) (test code = 652) CALCIUM (BEAKER) 7.8 mg/dL 8.5-10.5 L (test code = 697) EGFR (BEAKER) (test 101 mL/min/1.73 ESTIM ATED GFR IS code = 1092) sq m NOT ACCURATE CREATININE CLEARANCE IN PREDICTING GLOMERULAR FILTRATION RATE . ESTIMATED GFR I S NOT APPLICABLE FOR DIALYSIS PATIEN TS. CBC W/PLT COUNT & AUTO [id number] 05:35:00 Test Item Value Reference Range Interpretation Comments WHITE BLOOD CELL COUNT 33.3 K/ L 4.0-10.0 H (BEAKER) (test code = 775) RED BLOOD CELL COUNT 3.04 M/ L 4.00-5.00 L (BEAKER) (test code = 761) HEMOGLOBIN (BEAKER) 7.7 GM/DL 12.0-15.5 L (test code = 410) HEMATOCRIT (BEAKER) 23.7 % 36.0-46.0 L (test code = 411) MEAN CORPUSCULAR VOLUME 78.0 fL 82.0-99.0 L (BEAKER) (test code = 753) MEAN CORPUSCULAR 25.3 pg 27.0-33.0 L HEMOGLOBIN (BEAKER) (test code = 751) MEAN CORPUSCULAR 32.5 GM/DL 32.0-36.0 HEMOGLOBIN CONC (BEAKER) (test code = 752) RED CELL DISTRIBUTION 19.2 % 12.0-15.0 H WIDTH (BEAKER) (test code = 412) PLATELET COUNT (BEAKER) 418 K/CU MM 150-430 (test code = 756) MEAN PLATELET VOLUME 8.8 fL 6.0-11.5 MPV-Christina roximately (BEAKER) (test code = 20% po sitive bias 754) due to method change. NUCLEATED RED BLOOD 0 /100 WBC 0-0 CELLS (BEAKER) (test code = 413) NEUTROPHILS RELATIVE 85 % PERCENT (BEAKER) (test code = 429) LYMPHOCYTES RELATIVE 3 % PERCENT (BEAKER) (test code = 430) MONOCYTES RELATIVE 7 % PERCENT (BEAKER) (test code = 431) EOSINOPHILS RELATIVE 1 % PERCENT (BEAKER) (test code = 432) BASOPHILS RELATIVE 0 % PERCENT (BEAKER) (test code = 437) NEUTROPHILS ABSOLUTE 28.31 K/ L 1.80-8.00 H COUNT (BEAKER) (test code = 670) LYMPHOCYTES ABSOLUTE 1.12 K/ L 1.48-4.50 L COUNT (BEAKER) (test code = 414) MONOCYTES ABSOLUTE 2.47 K/ L 0.00-1.30 H COUNT (BEAKER) (test code = 415) EOSINOPHILS ABSOLUTE 0.15 K/ L 0.00-0.50 COUNT (BEAKER) (test code = 416) BASOPHILS ABSOLUTE 0.05 K/ L 0.00-0.20 COUNT (BEAKER) (test code = 417) IMMATURE 4 % 0-0 H GRANULOCYTES-RELATIVE PERCENT (BEAKER) (test code = 2801) POCT-GLUCOSE [id number] 21:11:00 Test Item Value Reference Range Interpretation Comments POC-GLUCOSE METER 94 mg/dL 70-110 TESTED AT [facility] [address] (BEAKER) (test code = [facility] 1533) [place] [address] POCT-GLUCOSE [id number] 16:51:00 Test Item Value Reference Range Interpretation Comments POC-GLUCOSE METER 121 mg/dL 70-110 H TESTED AT [facility] [address] (BEAKER) (test code [facility] = 1538) [place] [address] POCT-GLUCOSE [id number] 15:10:00 Test Item Value Reference Range Interpretation Comments POC-GLUCOSE METER 97 mg/dL 70-110 TESTED AT [facility] [address] (BEAKER) (test code = [place] [address]) [place] [address] [id number] 10:17:00 Test Item Value Reference Range Interpretation Comments PROCALCITONIN (BEAKER) (test code 1.41 ng/mL <0.05 H = 3036) SEPSIS RISK (ng/mL)Low: 0.05-0.50Intermediate: 0.51-2.00High: >=2.01HEPATIC FUNCTION [id number] 09:52:00 Test Item Value Reference Range Interpretation Comments TOTAL PROTEIN (BEAKER) (test code = 5.2 gm/dL 6.0-8.5 L 770) ALBUMIN (BEAKER) (test code = 1145) 2.1 g/dL 3.5-5.0 L BILIRUBIN TOTAL (BEAKER) (test code 1.6 mg/dL 0.1-1.3 H = 377) BILIRUBIN DIRECT (BEAKER) (test 1.2 mg/dL 0.0-0.5 H code = 706) ALKALINE PHOSPHATASE (BEAKER) (test 151 U/L 30-115 H code = 346) AST (SGOT) (BEAKER) (test code = 21 U/L 5-40 353) ALT (SGPT) (BEAKER) (test code = 12 U/L 6-50 347) POCT-GLUCOSE [id number] 05:57:00 Test Item Value Reference Range Interpretation Comments POC-GLUCOSE METER 87 mg/dL 70-110 TESTED AT [facility] [address] (BEAKER) (test code = [facility] 153) [place] [address] BASIC METABOLIC [id number] 05:34:00 Test Item Value Reference Range Interpretation Comments SODIUM (BEAKER) 138 meq/L 135-148 (test code = 381) POTASSIUM (BEAKER) 4.1 meq/L 3.5-5.5 (test code = 379) CHLORIDE (BEAKER) 107 meq/L 98-106 H (test code = 382) CO2 (BEAKER) (test 24 meq/L 20-31 code = 355) BLOOD UREA NITROGEN 21 mg/dL 10-26 (BEAKER) (test code = 354) CREATININE (BEAKER) 0.79 mg/dL 0.50-1.20 (test code = 358) GLUCOSE RANDOM 110 mg/dL 70-110 (BEAKER) (test code = 652) CALCIUM (BEAKER) 7.9 mg/dL 8.5-10.5 L (test code = 697) EGFR (BEAKER) (test 91 mL/min/1.73 ESTIMA UJNE GFR IS code = 1092) sq m NOT ACCURATE CREATININE CLEARANCE IN PREDICTING GLOMERULAR FILTRATION RATE . ESTIMATED GFR I S NOT APPLICABLE FOR DIALYSIS PATIEN TS. CBC W/PLT COUNT & AUTO [id number] 05:33:00 Test Item Value Reference Range Interpretation Comments WHITE BLOOD CELL COUNT 34.8 K/ L 4.0-10.0 H (BEAKER) (test code = 775) RED BLOOD CELL COUNT 3.24 M/ L 4.00-5.00 L (BEAKER) (test code = 761) HEMOGLOBIN (BEAKER) 8.2 GM/DL 12.0-15.5 L (test code = 410) HEMATOCRIT (BEAKER) 25.2 % 36.0-46.0 L (test code = 411) MEAN CORPUSCULAR VOLUME 77.8 fL 82.0-99.0 L (BEAKER) (test code = 753) MEAN CORPUSCULAR 25.3 pg 27.0-33.0 L HEMOGLOBIN (BEAKER) (test code = 751) MEAN CORPUSCULAR 32.5 GM/DL 32.0-36.0 HEMOGLOBIN CONC (BEAKER) (test code = 752) RED CELL DISTRIBUTION 18.6 % 12.0-15.0 H WIDTH (BEAKER) (test code = 412) PLATELET COUNT (BEAKER) 393 K/CU MM 150-430 (test code = 756) MEAN PLATELET VOLUME 8.8 fL 6.0-11.5 MPV-Christina roximately (BEAKER) (test code = 20% po sitive bias 754) due to method change. NUCLEATED RED BLOOD 0 /100 WBC 0-0 CELLS (BEAKER) (test code = 413) NEUTROPHILS RELATIVE 85 % PERCENT (BEAKER) (test code = 429) LYMPHOCYTES RELATIVE 3 % PERCENT (BEAKER) (test code = 430) MONOCYTES RELATIVE 8 % PERCENT (BEAKER) (test code = 431) EOSINOPHILS RELATIVE 1 % PERCENT (BEAKER) (test code = 432) BASOPHILS RELATIVE 0 % PERCENT (BEAKER) (test code = 437) NEUTROPHILS ABSOLUTE 29.37 K/ L 1.80-8.00 H COUNT (BEAKER) (test code = 670) LYMPHOCYTES ABSOLUTE 1.16 K/ L 1.48-4.50 L COUNT (BEAKER) (test code = 414) MONOCYTES ABSOLUTE 2.64 K/ L 0.00-1.30 H COUNT (BEAKER) (test code = 415) EOSINOPHILS ABSOLUTE 0.18 K/ L 0.00-0.50 COUNT (BEAKER) (test code = 416) BASOPHILS ABSOLUTE 0.08 K/ L 0.00-0.20 COUNT (BEAKER) (test code = 417) IMMATURE 4 % 0-0 H GRANULOCYTES-RELATIVE PERCENT (BEAKER) (test code = 2801) BUN AND [id number] 05:32:00 Test Item Value Reference Range Interpretation Comments BLOOD UREA NITROGEN 21 mg/dL 10-26 (BEAKER) (test code = 354) CREATININE (BEAKER) 0.79 mg/dL 0.50-1.20 (test code = 358) EGFR (BEAKER) (test 91 mL/min/1.73 ESTIMA JUNE GFR IS code = 1092) sq m NOT ACCURATE CREATININE CLEARANCE IN PREDICTING GLOMERULAR FILTRATION RATE . ESTIMATED GFR I S NOT APPLICABLE FOR DIALYSIS PATIEN TS. BLOOD [id number] 04:00:00 Test Item Value Reference Range Interpretation Comments CULTURE (BEAKER) (test No growth in 5 days code = 1095) BLOOD [id number] 01:00:00 Test Item Value Reference Range Interpretation Comments CULTURE (BEAKER) (test No growth in 5 days code = 1095) POCT-GLUCOSE [id number] 21:25:00 Test Item Value Reference Range Interpretation Comments POC-GLUCOSE METER 135 mg/dL 70-110 H TESTED AT [facility] [address] (BEAKER) (test code [facility] = 1538) [place] [address] ANG, NON-TUNNELED CATH/PICC >5 Y.O.2017-11-12 17:59:00Reason for exam:- >home iV abxFINAL REPORT Exam: PICC insertion Clinical History: Need for long-term IV antibiotics Consent: Risks and benefits were explained to the patient who gave consent to the procedure. Complication: Non immediate. Total fluoro time: 0.1 minutes Total images 1 Procedure: Sterile barrier technique was followed including cap, mask, sterile gown, sterile gloves, sterile sheet, handhygiene and 2% chlorhexidine for cutaneous antisepsis. The left arm was prepped and draped in usualsterile fashion. 2% lidocaine was used as local anesthetics. Under ultrasound guidance the left basilic vein, which is patent, was accessed using a 21g micropuncture needle. A hard copy of the ultrasound image was obtained. A 4 FR single lumen PICC was inserted through the venotomy site until the tip is at the cavoatrial junction under fluoroscopic guidance. The lumen aspirated and flushed easily. The patient tolerated the procedure well without any adverse reactions and was transferred from the radiology department in stable condition. Impression: Successful PICC insertion as described. Signed: Martin Mancilla [facility] Verified Date/Time: 11/12/2017 17:59:19 Reading Location: [facility] Radiology Reading Room POCT-GLUCOSE [id number] 16:37:00 Test Item Value Reference Range Interpretation Comments POC-GLUCOSE METER 98 mg/dL 70-110 TESTED AT [facility] [address] ([facility]) (test code = [facility] 1538) [place] [address] PERIPHERAL BLOOD SMEAR - PATH REVIEW LAB [id number] 08:14:00 Test Item Value Reference Range Interpretation Comments PERIPHERAL SMR REVIEW Neutrophilic ([facility]) (test code = leukocytosis and 2640) microcytic anemia. No blast forms seen. [id number] Nazario Becker M.D. ([facility]) (test code = (electronic signature) 2793) (MANUAL DIFFERENTIAL)2017-11-12 08:12:00 Test Item Value Reference Range Interpretation Comments NEUTROPHILS - REL (DIFF) (BEAKER) 84 % (test code = 1359) LYMPHOCYTES - REL (DIFF) (BEAKER) 4 % (test code = 1360) MONOCYTES - REL (DIFF) (BEAKER) 4 % (test code = 1361) EOSINOPHILS - REL (DIFF) (BEAKER) 1 % (test code = 1362) METAMYELOCYTES-REL (DIFF) (BEAKER) 2 % 0-0 H (test code = 258) BANDS - REL (DIFF) (BEAKER) (test 5 % 0-10 code = 1348) NEUTROPHILS - ABS (DIFF) (BEAKER) 26.46 K/ L 1.80-8.00 H (test code = 1365) LYMPHOCYTES - ABS (DIFF) (BEAKER) 1.26 K/ L 1.48-4.50 L (test code = 1366) MONOCYTES - ABS (DIFF) (BEAKER) 1.26 K/ L 0.00-1.30 (test code = 1367) EOSINOPHILS - ABS (DIFF) (BEAKER) 0.32 K/ L 0.00-0.50 (test code = 1368) METAMYELOCTYES - ABS (DIFF) 0.63 K/ L 0.00-0.00 H (BEAKER) (test code = 261) BANDS-ABS (DIFF) (BEAKER) (test 1.6 K/ L 0.0-0.8 H code = 1349) TOTAL COUNTED (BEAKER) (test code 100 = 1351) BANDS + SEGMENTED NEUTROPHILS 28.04 (BEAKER) (test code = 1352) WBC MORPHOLOGY (BEAKER) (test code Normal = 487) PLT MORPHOLOGY (BEAKER) (test code Normal = 486) ANISOCYTOSIS (BEAKER) (test code = 1+ few 961) HYPOCHROMIA (BEAKER) (test code = 1+ few 963) BODY FLUID CULTURE + GRAM [id number] 08:10:00 Test Item Value Reference Range Interpretation Comments CULTURE (BEAKER) (test No growth code = 1095) GRAM STAIN RESULT 3+ White blood cells (BEAKER) (test code = seen 1123) GRAM STAIN RESULT No organisms seen (BEAKER) (test code = 92738) POCT-GLUCOSE [id number] 06:18:00 Test Item Value Reference Range Interpretation Comments POC-GLUCOSE METER 113 mg/dL 70-110 H TESTED AT [facility] [address] (BEAKER) (test code [facility] = 1538) [place] [address] CBC W/PLT COUNT & AUTO [id number] 04:40:00 Test Item Value Reference Range Interpretation Comments WHITE BLOOD CELL COUNT (BEAKER) 31.5 K/ L 4.0-10.0 H (test code = 775) RED BLOOD CELL COUNT (BEAKER) 3.23 M/ L 4.00-5.00 L (test code = 761) HEMOGLOBIN (BEAKER) (test code = 8.2 GM/DL 12.0-15.5 L 410) HEMATOCRIT (BEAKER) (test code = 25.0 % 36.0-46.0 L 411) MEAN CORPUSCULAR VOLUME (BEAKER) 77.4 fL 82.0-99.0 L (test code = 753) MEAN CORPUSCULAR HEMOGLOBIN 25.4 pg 27.0-33.0 L (BEAKER) (test code = 751) MEAN CORPUSCULAR HEMOGLOBIN CONC 32.8 GM/DL 32.0-36.0 (BEAKER) (test code = 752) RED CELL DISTRIBUTION WIDTH 17.9 % 12.0-15.0 H (BEAKER) (test code = 412) PLATELET COUNT (BEAKER) (test 391 K/CU MM 150-430 code = 756) MEAN PLATELET VOLUME (BEAKER) 9.1 fL 6.0-11.5 (test code = 754) NUCLEATED RED BLOOD CELLS 0 /100 WBC 0-0 (BEAKER) (test code = 413) NEUTROPHILS RELATIVE PERCENT 83 % (BEAKER) (test code = 429) LYMPHOCYTES RELATIVE PERCENT 5 % (BEAKER) (test code = 430) MONOCYTES RELATIVE PERCENT 7 % (BEAKER) (test code = 431) EOSINOPHILS RELATIVE PERCENT 1 % (BEAKER) (test code = 432) BASOPHILS RELATIVE PERCENT 0 % (BEAKER) (test code = 437) NEUTROPHILS ABSOLUTE COUNT 26.28 K/ L 1.80-8.00 H (BEAKER) (test code = 670) LYMPHOCYTES ABSOLUTE COUNT 1.41 K/ L 1.48-4.50 L (BEAKER) (test code = 414) MONOCYTES ABSOLUTE COUNT (BEAKER) 2.17 K/ L 0.00-1.30 H (test code = 415) EOSINOPHILS ABSOLUTE COUNT 0.15 K/ L 0.00-0.50 (BEAKER) (test code = 416) BASOPHILS ABSOLUTE COUNT (BEAKER) 0.06 K/ L 0.00-0.20 (test code = 417) IMMATURE GRANULOCYTES-RELATIVE 5 % 0-0 H PERCENT (BEAKER) (test code = 2801) BASIC METABOLIC [id number] 03:56:00 Test Item Value Reference Range Interpretation Comments SODIUM (BEAKER) 137 meq/L 135-148 (test code = 381) POTASSIUM (BEAKER) 4.0 meq/L 3.5-5.5 (test code = 379) CHLORIDE (BEAKER) 107 meq/L 98-106 H (test code = 382) CO2 (BEAKER) (test 21 meq/L 20-31 code = 355) BLOOD UREA NITROGEN 19 mg/dL 10-26 (BEAKER) (test code = 354) CREATININE (BEAKER) 0.81 mg/dL 0.50-1.20 (test code = 358) GLUCOSE RANDOM 111 mg/dL 70-110 H (BEAKER) (test code = 652) CALCIUM (BEAKER) 7.5 mg/dL 8.5-10.5 L (test code = 697) EGFR (BEAKER) (test 88 mL/min/1.73 ESTIMA JUNE GFR IS code = 1092) sq m NOT ACCURATE CREATININE CLEARANCE IN PREDICTING GLOMERULAR FILTRATION RATE . ESTIMATED GFR I S NOT APPLICABLE FOR DIALYSIS PATIEN TS. BUN AND [id number] 03:55:00 Test Item Value Reference Range Interpretation Comments BLOOD UREA NITROGEN 19 mg/dL 10-26 (BEAKER) (test code = 354) CREATININE (BEAKER) 0.81 mg/dL 0.50-1.20 (test code = 358) EGFR (BEAKER) (test 88 mL/min/1.73 ESTIMA JUNE GFR IS code = 1092) sq m NOT ACCURATE CREATININE CLEARANCE IN PREDICTING GLOMERULAR FILTRATION RATE . ESTIMATED GFR I S NOT APPLICABLE FOR DIALYSIS PATIEN TS. POCT-GLUCOSE [id number] 20:51:00 Test Item Value Reference Range Interpretation Comments POC-GLUCOSE METER 151 mg/dL 70-110 H TESTED AT [facility] [id number] (BEAKER) (test code [facility] = 1538) [place] [address] POCT-GLUCOSE [id number] 17:20:00 Test Item Value Reference Range Interpretation Comments POC-GLUCOSE METER 101 mg/dL 70-110 TESTED AT [facility] [address] (BEAKER) (test code [facility] = 1538) [place] [address] SPIN/CONCENTRATION [id number] 15:42:00 Test Item Value Reference Range Interpretation Comments CONCENTRATION CHARGED (BEAKER) (test Done code = 2657) POCT-GLUCOSE [id number] 11:34:00 Test Item Value Reference Range Interpretation Comments POC-GLUCOSE METER 109 mg/dL 70-110 TESTED AT [facility] [address] (BEAKER) (test code [facility] = 1538) [place] [address] VANCOMYCIN LEVEL, [id number] 09:14:00 Test Item Value Reference Range Interpretation Comments VANCOMYCIN TROUGH (BEAKER) (test 10.6 ug/mL 10.0-20.0 code = 522) BASIC METABOLIC [id number] 05:59:00 Test Item Value Reference Range Interpretation Comments SODIUM (BEAKER) 140 meq/L 135-148 (test code = 381) POTASSIUM (BEAKER) 4.1 meq/L 3.5-5.5 (test code = 379) CHLORIDE (BEAKER) 108 meq/L 98-106 H (test code = 382) CO2 (BEAKER) (test 22 meq/L 20-31 code = 355) BLOOD UREA NITROGEN 17 mg/dL 10-26 (BEAKER) (test code = 354) CREATININE (BEAKER) 0.80 mg/dL 0.50-1.20 (test code = 358) GLUCOSE RANDOM 112 mg/dL 70-110 H (BEAKER) (test code = 652) CALCIUM (BEAKER) 7.6 mg/dL 8.5-10.5 L (test code = 697) EGFR (BEAKER) (test 90 mL/min/1.73 ESTIMA JUNE GFR IS code = 1092) sq m NOT ACCURATE CREATININE CLEARANCE IN PREDICTING GLOMERULAR FILTRATION RATE . ESTIMATED GFR I S NOT APPLICABLE FOR DIALYSIS PATIEN TS. BUN AND [id number] 05:58:00 Test Item Value Reference Range Interpretation Comments BLOOD UREA NITROGEN 17 mg/dL 10-26 (BEAKER) (test code = 354) CREATININE (BEAKER) 0.80 mg/dL 0.50-1.20 (test code = 358) EGFR (BEAKER) (test 90 mL/min/1.73 ESTIMA JUNE GFR IS code = 1092) sq m NOT ACCURATE CREATININE CLEARANCE IN PREDICTING GLOMERULAR FILTRATION RATE . ESTIMATED GFR I S NOT APPLICABLE FOR DIALYSIS PATIEN TS. POCT-GLUCOSE [id number] 05:49:00 Test Item Value Reference Range Interpretation Comments POC-GLUCOSE METER 121 mg/dL 70-110 H TESTED AT [facility] [address] (BEAKER) (test code [facility] = 1538) [place] [address] CBC W/PLT COUNT & AUTO [id number] 05:43:00 Test Item Value Reference Range Interpretation Comments WHITE BLOOD CELL COUNT (BEAKER) 31.9 K/ L 4.0-10.0 H (test code = 775) RED BLOOD CELL COUNT (BEAKER) 2.66 M/ L 4.00-5.00 L (test code = 761) HEMOGLOBIN (BEAKER) (test code = 6.6 GM/DL 12.0-15.5 L 410) HEMATOCRIT (BEAKER) (test code = 20.2 % 36.0-46.0 LL 411) MEAN CORPUSCULAR VOLUME (BEAKER) 75.9 fL 82.0-99.0 L (test code = 753) MEAN CORPUSCULAR HEMOGLOBIN 24.8 pg 27.0-33.0 L (BEAKER) (test code = 751) MEAN CORPUSCULAR HEMOGLOBIN CONC 32.7 GM/DL 32.0-36.0 (BEAKER) (test code = 752) RED CELL DISTRIBUTION WIDTH 18.1 % 12.0-15.0 H (BEAKER) (test code = 412) PLATELET COUNT (BEAKER) (test 365 K/CU MM 150-430 code = 756) MEAN PLATELET VOLUME (BEAKER) 9.1 fL 6.0-11.5 (test code = 754) NUCLEATED RED BLOOD CELLS 0 /100 WBC 0-0 (BEAKER) (test code = 413) NEUTROPHILS RELATIVE PERCENT 83 % (BEAKER) (test code = 429) LYMPHOCYTES RELATIVE PERCENT 4 % (BEAKER) (test code = 430) MONOCYTES RELATIVE PERCENT 8 % (BEAKER) (test code = 431) EOSINOPHILS RELATIVE PERCENT 0 % (BEAKER) (test code = 432) BASOPHILS RELATIVE PERCENT 0 % (BEAKER) (test code = 437) NEUTROPHILS ABSOLUTE COUNT 26.56 K/ L 1.80-8.00 H (BEAKER) (test code = 670) LYMPHOCYTES ABSOLUTE COUNT 1.23 K/ L 1.48-4.50 L (BEAKER) (test code = 414) MONOCYTES ABSOLUTE COUNT (BEAKER) 2.66 K/ L 0.00-1.30 H (test code = 415) EOSINOPHILS ABSOLUTE COUNT 0.04 K/ L 0.00-0.50 (BEAKER) (test code = 416) BASOPHILS ABSOLUTE COUNT (BEAKER) 0.05 K/ L 0.00-0.20 (test code = 417) IMMATURE GRANULOCYTES-RELATIVE 4 % 0-0 H PERCENT (BEAKER) (test code = 2801) POCT-GLUCOSE [id number] 00:07:00 Test Item Value Reference Range Interpretation Comments POC-GLUCOSE METER 150 mg/dL 70-110 H TESTED AT [facility] [address] ([facility]) (test code [facility] = 1538) [place] [address] RAD, HIP, 1 VIEW, [id number] 23:51:00Reason for exam:->postopFINAL REPORT Right hip. HISTORY: Postoperative. COMPARISON STUDY: October 29, 2017. FINDINGS: A single frontal view of the right hip demonstrates a hemiarthroplasty in place. No cement is identified. There is no evidence of fracture or malalignment on this single projection. Signed: Kashmir Blanco Verified Date/Time: 11/10/2017 23:51:24 Reading Location: [address] Ortho Consult Reading Room RAD, PELVIS, 1 OR 2 [id number] 23:22:00Reason for exam:->Hip ArthroplastyReason for exam:->X-Table Lateral during OR. Sterile FieldFINAL REPORT Pelvis. HISTORY: Hip arthroplasty. COMPARISON STUDY: CT scan dated November 07, 2017. FINDINGS: Two views of the pelvis are suboptimal in appearance. A right hemiarthroplasty seen in place with no obvious fracture or malalignment on the provided views. Assessment for fractures is limited. Signed: Kashmir Blanco Verified Date/Time: 11/10/2017 23:22:52 Reading Location: [facility] B1 [id number] Ortho Consult Reading Room POCT-GLUCOSE [id number] 22:54:00 Test Item Value Reference Range Interpretation Comments POC-GLUCOSE METER 140 mg/dL 70-110 H TESTED AT [facility] [address] (BEAKER) (test code [facility] = 1538) [place] [address] POCT-GLUCOSE [id number] 16:57:00 Test Item Value Reference Range Interpretation Comments POC-GLUCOSE METER 98 mg/dL 70-110 TESTED AT [facility] [address] (BEAKER) (test code = [facility] 1538) [place] [address] POCT-GLUCOSE [id number] 12:41:00 Test Item Value Reference Range Interpretation Comments POC-GLUCOSE METER 111 mg/dL 70-110 H TESTED AT [facility] [address] (BEAKER) (test code [facility] = 1538) [place] [address] (MANUAL DIFFERENTIAL)2017-11-10 07:35:00 Test Item Value Reference Range Interpretation Comments NEUTROPHILS - REL (DIFF) (BEAKER) 86 % (test code = 1359) LYMPHOCYTES - REL (DIFF) (BEAKER) 2 % (test code = 1360) MONOCYTES - REL (DIFF) (BEAKER) 8 % (test code = 1361) EOSINOPHILS - REL (DIFF) (BEAKER) 1 % (test code = 1362) BANDS - REL (DIFF) (BEAKER) (test 3 % 0-10 code = 1348) NEUTROPHILS - ABS (DIFF) (BEAKER) 24.94 K/ L 1.80-8.00 H (test code = 1365) LYMPHOCYTES - ABS (DIFF) (BEAKER) 0.58 K/ L 1.48-4.50 L (test code = 1366) MONOCYTES - ABS (DIFF) (BEAKER) 2.32 K/ L 0.00-1.30 H (test code = 1367) EOSINOPHILS - ABS (DIFF) (BEAKER) 0.29 K/ L 0.00-0.50 (test code = 1368) BANDS-ABS (DIFF) (BEAKER) (test 0.9 K/ L 0.0-0.8 H code = 1349) TOTAL COUNTED (BEAKER) (test code 100 = 1351) BANDS + SEGMENTED NEUTROPHILS 25.81 (BEAKER) (test code = 1352) WBC MORPHOLOGY (BEAKER) (test code Normal = 487) PLT MORPHOLOGY (BEAKER) (test code Normal = 486) RBC MORPHOLOGY (BEAKER) (test code Normal = 762) CBC W/PLT COUNT & AUTO [id number] 07:32:00 Test Item Value Reference Range Interpretation Comments WHITE BLOOD CELL COUNT 29.0 K/ L 4.0-10.0 H (BEAKER) (test code = 775) RED BLOOD CELL COUNT 3.27 M/ L 4.00-5.00 L (BEAKER) (test code = 761) HEMOGLOBIN (BEAKER) 7.9 GM/DL 12.0-15.5 L (test code = 410) HEMATOCRIT (BEAKER) 24.6 % 36.0-46.0 L (test code = 411) MEAN CORPUSCULAR VOLUME 75.2 fL 82.0-99.0 L (BEAKER) (test code = 753) MEAN CORPUSCULAR 24.2 pg 27.0-33.0 L HEMOGLOBIN (BEAKER) (test code = 751) MEAN CORPUSCULAR 32.1 GM/DL 32.0-36.0 HEMOGLOBIN CONC (BEAKER) (test code = 752) RED CELL DISTRIBUTION 17.8 % 12.0-15.0 H WIDTH (BEAKER) (test code = 412) PLATELET COUNT (BEAKER) 389 K/CU MM 150-430 (test code = 756) MEAN PLATELET VOLUME 8.9 fL 6.0-11.5 MPV-Christina roximately (BEAKER) (test code = 20% po sitive bias 754) due to method change. NUCLEATED RED BLOOD 0 /100 WBC 0-0 CELLS (BEAKER) (test code = 413) [id number] 07:25:00 Test Item Value Reference Range Interpretation Comments PHOSPHORUS (BEAKER) (test code = 3.5 mg/dL 2.5-4.5 604) [id number] 07:25:00 Test Item Value Reference Range Interpretation Comments MAGNESIUM (BEAKER) (test code = 1.7 mg/dL 1.5-3.0 627) BASIC METABOLIC [id number] 07:25:00 Test Item Value Reference Range Interpretation Comments SODIUM (BEAKER) 139 meq/L 135-148 (test code = 381) POTASSIUM (BEAKER) 3.7 meq/L 3.5-5.5 (test code = 379) CHLORIDE (BEAKER) 108 meq/L 98-106 H (test code = 382) CO2 (BEAKER) (test 21 meq/L 20-31 code = 355) BLOOD UREA NITROGEN 20 mg/dL 10-26 (BEAKER) (test code = 354) CREATININE (BEAKER) 0.91 mg/dL 0.50-1.20 (test code = 358) GLUCOSE RANDOM 108 mg/dL 70-110 (BEAKER) (test code = 652) CALCIUM (BEAKER) 8.3 mg/dL 8.5-10.5 L (test code = 697) EGFR (BEAKER) (test 77 mL/min/1.73 ESTIMA JUNE GFR IS code = 1092) sq m NOT ACCURATE CREATININE CLEARANCE IN PREDICTING GLOMERULAR FILTRATION RATE . ESTIMATED GFR I S NOT APPLICABLE FOR DIALYSIS PATIEN TS. POCT-GLUCOSE [id number] 06:45:00 Test Item Value Reference Range Interpretation Comments POC-GLUCOSE METER 121 mg/dL 70-110 H TESTED AT [facility] [address] ([facility]) (test code [facility] = 1538) [place] [address] POCT-GLUCOSE [id number] 22:14:00 Test Item Value Reference Range Interpretation Comments POC-GLUCOSE METER 124 mg/dL 70-110 H TESTED AT [facility] [address] ([facility]) (test code [facility] = 1538) [place] [address] VANCOMYCIN LEVEL, [id number] 21:02:00 Test Item Value Reference Range Interpretation Comments VANCOMYCIN TROUGH (BEAKER) (test 9.6 ug/mL 10.0-20.0 L code = 522) POCT-GLUCOSE [id number] 17:22:00 Test Item Value Reference Range Interpretation Comments POC-GLUCOSE METER 98 mg/dL 70-110 TESTED AT [facility] [address] ([facility]) (test code = [facility] 1538) [place] [address] POCT-GLUCOSE [id number] 11:36:00 Test Item Value Reference Range Interpretation Comments POC-GLUCOSE METER 127 mg/dL 70-110 H TESTED AT [facility] [address] (BEAKER) (test code [facility] = 1538) [place] [address] WOUND CULTURE + GRAM [id number] 11:05:00 Test Item Value Reference Interpretation Comments Range CULTURE (BEAKER) (test ENTEROBACTER A <1+ E nterobacter code = 1095) CLOACAE COMPLEX cloacae comp jean marie Amikacin (test code = S 1) Aztreonam (test code = S 32) Cefazolin (test code = R 9) Cefepime (test code = S 51) Cefoxitin (test code = R 68) Ceftazidime (test code S = 27) Ceftriaxone (test code S = 52) Ertapenem (test code = S 38) Gentamicin (test code S = 18) Levofloxacin (test S code = 22) Meropenem (test code = S 34) Piperacillin + S Tazobactam (test code = 29) Tobramycin (test code S = 25) Trimethoprim + S Sulfamethoxazole (test code = 47) GRAM STAIN RESULT 2+ White blood (BEAKER) (test code = cells seen 1123) GRAM STAIN RESULT No organisms seen (BEAKER) (test code = 617090) POCT-GLUCOSE [id number] 05:54:00 Test Item Value Reference Range Interpretation Comments POC-GLUCOSE METER 116 mg/dL 70-110 H TESTED AT [facility] [address] (BEAKER) (test code [facility] = 1538) [place] [address] [id number] 03:42:00 Test Item Value Reference Range Interpretation Comments PHOSPHORUS (BEAKER) (test code = 3.8 mg/dL 2.5-4.5 604) [id number] 03:42:00 Test Item Value Reference Range Interpretation Comments MAGNESIUM (BEAKER) (test code = 1.9 mg/dL 1.5-3.0 627) BASIC METABOLIC [id number] 03:42:00 Test Item Value Reference Range Interpretation Comments SODIUM (BEAKER) 140 meq/L 135-148 (test code = 381) POTASSIUM (BEAKER) 3.7 meq/L 3.5-5.5 (test code = 379) CHLORIDE (BEAKER) 107 meq/L 98-106 H (test code = 382) CO2 (BEAKER) (test 19 meq/L 20-31 L code = 355) BLOOD UREA NITROGEN 28 mg/dL 10-26 H (BEAKER) (test code = 354) CREATININE (BEAKER) 1.20 mg/dL 0.50-1.20 (test code = 358) GLUCOSE RANDOM 103 mg/dL 70-110 (BEAKER) (test code = 652) CALCIUM (BEAKER) 8.0 mg/dL 8.5-10.5 L (test code = 697) EGFR (BEAKER) (test 56 mL/min/1.73 ESTIMA JUNE GFR IS code = 1092) sq m NOT ACCURATE CREATININE CLEARANCE IN PREDICTING GLOMERULAR FILTRATION RATE . ESTIMATED GFR I S NOT APPLICABLE FOR DIALYSIS PATIEN TS. CBC W/PLT COUNT & AUTO [id number] 03:21:00 Test Item Value Reference Range Interpretation Comments WHITE BLOOD CELL COUNT 24.9 K/ L 4.0-10.0 H (BEAKER) (test code = 775) RED BLOOD CELL COUNT 3.16 M/ L 4.00-5.00 L (BEAKER) (test code = 761) HEMOGLOBIN (BEAKER) 7.7 GM/DL 12.0-15.5 L (test code = 410) HEMATOCRIT (BEAKER) 23.9 % 36.0-46.0 L (test code = 411) MEAN CORPUSCULAR VOLUME 75.6 fL 82.0-99.0 L (BEAKER) (test code = 753) MEAN CORPUSCULAR 24.4 pg 27.0-33.0 L HEMOGLOBIN (BEAKER) (test code = 751) MEAN CORPUSCULAR 32.2 GM/DL 32.0-36.0 HEMOGLOBIN CONC (BEAKER) (test code = 752) RED CELL DISTRIBUTION 17.2 % 12.0-15.0 H WIDTH (BEAKER) (test code = 412) PLATELET COUNT (BEAKER) 383 K/CU MM 150-430 (test code = 756) MEAN PLATELET VOLUME 9.0 fL 6.0-11.5 MPV-Christina roximately (BEAKER) (test code = 20% po sitive bias 754) due to method change. NUCLEATED RED BLOOD 0 /100 WBC 0-0 CELLS (BEAKER) (test code = 413) NEUTROPHILS RELATIVE 81 % PERCENT (BEAKER) (test code = 429) LYMPHOCYTES RELATIVE 5 % PERCENT (BEAKER) (test code = 430) MONOCYTES RELATIVE 9 % PERCENT (BEAKER) (test code = 431) EOSINOPHILS RELATIVE 1 % PERCENT (BEAKER) (test code = 432) BASOPHILS RELATIVE 0 % PERCENT (BEAKER) (test code = 437) NEUTROPHILS ABSOLUTE 20.25 K/ L 1.80-8.00 H COUNT (BEAKER) (test code = 670) LYMPHOCYTES ABSOLUTE 1.30 K/ L 1.48-4.50 L COUNT (BEAKER) (test code = 414) MONOCYTES ABSOLUTE 2.22 K/ L 0.00-1.30 H COUNT (BEAKER) (test code = 415) EOSINOPHILS ABSOLUTE 0.12 K/ L 0.00-0.50 COUNT (BEAKER) (test code = 416) BASOPHILS ABSOLUTE 0.04 K/ L 0.00-0.20 COUNT (BEAKER) (test code = 417) IMMATURE 4 % 0-0 H GRANULOCYTES-RELATIVE PERCENT (BEAKER) (test code = 2801) POCT-GLUCOSE [id number] 20:55:00 Test Item Value Reference Range Interpretation Comments POC-GLUCOSE METER 122 mg/dL 70-110 H TESTED AT [facility] [address] (BEAKER) (test code [facility] = 1538) [place] [address] POCT-GLUCOSE [id number] 16:19:00 Test Item Value Reference Range Interpretation Comments POC-GLUCOSE METER 136 mg/dL 70-110 H TESTED AT [facility] [address] (BEAKER) (test code [facility] = 1538) [place] [address] HEMOGLOBIN AND [id number] 14:19:00 Test Item Value Reference Range Interpretation Comments HEMOGLOBIN (BEAKER) (test code = 8.1 GM/DL 12.0-15.5 L 410) HEMATOCRIT (BEAKER) (test code = 24.9 % 36.0-46.0 L 411) POCT-GLUCOSE [id number] 12:13:00 Test Item Value Reference Range Interpretation Comments POC-GLUCOSE METER 142 mg/dL 70-110 H TESTED AT [facility] [address] (BEAKER) (test code [facility] = 1538) [place] [address] POCT-GLUCOSE [id number] 06:02:00 Test Item Value Reference Range Interpretation Comments POC-GLUCOSE METER 109 mg/dL 70-110 TESTED AT [facility] [address] (BEAKER) (test code [facility] = 1538) [place] [address] POCT-GLUCOSE [id number] 05:38:00 Test Item Value Reference Range Interpretation Comments POC-GLUCOSE METER 150 mg/dL 70-110 H TESTED AT [facility] [address] (BEAKER) (test code [facility] = 1538) [place] [address] TYPE AND SCREEN, [id number] 03:11:00 Test Item Value Reference Range Interpretation Comments ABO/RH AUTOMATED (BEAKER) (test B Positive code = 2260) AB SCREEN (BEAKER) (test code = Negative 923) HEMOGLOBIN AND [id number] 02:41:00 Test Item Value Reference Range Interpretation Comments HEMOGLOBIN (BEAKER) (test code = 5.9 GM/DL 12.0-15.5 LL 410) HEMATOCRIT (BEAKER) (test code = 18.2 % 36.0-46.0 LL 411) COMPREHENSIVE METABOLIC [id number] 01:43:00 Test Item Value Reference Range Interpretation Comments TOTAL PROTEIN 5.8 gm/dL 6.0-8.5 L (BEAKER) (test code = 770) ALBUMIN (BEAKER) 2.5 g/dL 3.5-5.0 L (test code = 1145) ALKALINE PHOSPHATASE 126 U/L 30-115 H (BEAKER) (test code = 346) BILIRUBIN TOTAL 1.2 mg/dL 0.1-1.3 (BEAKER) (test code = 377) SODIUM (BEAKER) (test 133 meq/L 135-148 L code = 381) POTASSIUM (BEAKER) 3.6 meq/L 3.5-5.5 (test code = 379) CHLORIDE (BEAKER) 99 meq/L 98-106 (test code = 382) CO2 (BEAKER) (test 21 meq/L 20-31 code = 355) BLOOD UREA NITROGEN 36 mg/dL 10-26 H (BEAKER) (test code = 354) CREATININE (BEAKER) 1.50 mg/dL 0.50-1.20 H (test code = 358) GLUCOSE RANDOM 132 mg/dL 70-110 H (BEAKER) (test code = 652) CALCIUM (BEAKER) 8.0 mg/dL 8.5-10.5 L (test code = 697) AST (SGOT) (BEAKER) 17 U/L 5-40 (test code = 353) ALT (SGPT) (BEAKER) 11 U/L 6-50 (test code = 347) EGFR (BEAKER) (test 43 mL/min/1.73 ESTIMA JUNE GFR IS code = 1092) sq m NOT ACCURATE CREATININE CLEARANCE IN PREDICTING GLOMERULAR FILTRATION RATE . ESTIMATED GFR I S NOT APPLICABLE FOR DIALYSIS PATIEN TS. [id number] 01:36:00 Test Item Value Reference Range Interpretation Comments PHOSPHORUS (BEAKER) (test code = 3.3 mg/dL 2.5-4.5 604) [id number] 01:36:00 Test Item Value Reference Range Interpretation Comments MAGNESIUM (BEAKER) (test code = 1.9 mg/dL 1.5-3.0 627) LACTIC ACID, VENOUS, WHOLE [id number] 01:29:00 Test Item Value Reference Range Interpretation Comments LACTATE BLOOD VENOUS (2) (BEAKER) 0.8 mmol/L 0.5-2.2 (test code = 2872) Effective 07/19/2015: Units/Reference Range ChangeNew: 0.5-2.2 mmol/L Previous: 5-20 mg/dLCBC W/PLT COUNT & AUTO [id number] 01:25:00 Test Item Value Reference Range Interpretation Comments WHITE BLOOD CELL COUNT (BEAKER) 22.8 K/ L 4.0-10.0 H (test code = 775) RED BLOOD CELL COUNT (BEAKER) 2.59 M/ L 4.00-5.00 L (test code = 761) HEMOGLOBIN (BEAKER) (test code = 6.0 GM/DL 12.0-15.5 LL 410) HEMATOCRIT (BEAKER) (test code = 18.6 % 36.0-46.0 LL 411) MEAN CORPUSCULAR VOLUME (BEAKER) 71.8 fL 82.0-99.0 L (test code = 753) MEAN CORPUSCULAR HEMOGLOBIN 23.2 pg 27.0-33.0 L (BEAKER) (test code = 751) MEAN CORPUSCULAR HEMOGLOBIN CONC 32.3 GM/DL 32.0-36.0 (BEAKER) (test code = 752) RED CELL DISTRIBUTION WIDTH 16.5 % 12.0-15.0 H (BEAKER) (test code = 412) PLATELET COUNT (BEAKER) (test 371 K/CU MM 150-430 code = 756) MEAN PLATELET VOLUME (BEAKER) 9.0 fL 6.0-11.5 (test code = 754) NUCLEATED RED BLOOD CELLS 0 /100 WBC 0-0 (BEAKER) (test code = 413) NEUTROPHILS RELATIVE PERCENT 79 % (BEAKER) (test code = 429) LYMPHOCYTES RELATIVE PERCENT 7 % (BEAKER) (test code = 430) MONOCYTES RELATIVE PERCENT 9 % (BEAKER) (test code = 431) EOSINOPHILS RELATIVE PERCENT 1 % (BEAKER) (test code = 432) BASOPHILS RELATIVE PERCENT 0 % (BEAKER) (test code = 437) NEUTROPHILS ABSOLUTE COUNT 17.96 K/ L 1.80-8.00 H (BEAKER) (test code = 670) LYMPHOCYTES ABSOLUTE COUNT 1.62 K/ L 1.48-4.50 (BEAKER) (test code = 414) MONOCYTES ABSOLUTE COUNT (BEAKER) 1.98 K/ L 0.00-1.30 H (test code = 415) EOSINOPHILS ABSOLUTE COUNT 0.15 K/ L 0.00-0.50 (BEAKER) (test code = 416) BASOPHILS ABSOLUTE COUNT (BEAKER) 0.05 K/ L 0.00-0.20 (test code = 417) IMMATURE GRANULOCYTES-RELATIVE 5 % 0-0 H PERCENT (BEAKER) (test code = 2801) POCT-GLUCOSE [id number] 21:52:00 Test Item Value Reference Range Interpretation Comments POC-GLUCOSE METER 113 mg/dL 70-110 H TESTED AT [facility] [address] (BEAKER) (test code [facility] = 1538) [place] [address] CT, EXTREMITY, LOWER WITHOUT CONTRAST, [id number] 19:15:00FINAL REPORT CT scan of the right lower extremity. HISTORY: Right hip suspectabscess. COMPARISON STUDY: Plain film dated November 07, 2017. TECHNIQUE: Contiguous helical slices were acquired through the right hip without the administration of contrast. This exam was performed according to our department dose optimization program which includes automated exposure control, adjustment of the mA and/or kV according to the patient's size and/or use of iterative reconstruction technique. FINDINGS: The visualized pelvic viscera are unremarkable. The uterus is absent. No ascites is seen. Within the subcutaneous tissues of the right lateral thigh is a 7.6 x 4.0 cm predominantly gas con taining collection which could represent an abscess in the right clinical setting. Only minimal fluid is seen within this area. It abuts the lateral thigh muscles. Bone windows demonstrate a right hip arthroplasty in place. No evidence of fracture or malalignment is seen. There is no evidence of osteomyelitis. IMPRESSION: Predominantly gas-containing septated collection the right lateral thigh which could represent an abscess in the right clinical setting. Only minimal fluid is seen within this abscess. Signed: Kashmir Blanco Verified Date/Time: 11/07/2017 19:15:59 Reading Location: [address] Consult Reading Room RAD, HIP, 2 VIEWS, [id number] 16:19:00Reason for exam:->HIP PAIN FINAL REPORT INDICATION:Right hip pain status post right hip replacement ninedays ago. COMPARISON: October 29, 2017 TECHNIQUE: Right hip radiograph two views. FINDINGS / IMPRESSION:Total right hip replacement is well positioned and normally aligned on AP and frog-leg lateral views. No fracture is demonstrated. Residual air in the lateral hip soft tissues noted. Signed: Romero Bauer Verified Date/Time: 11/07/2017 16:19:47 Reading Location: [facility] Women CBC W/PLT COUNT & AUTO [id number] 16:00:00 Test Item Value Reference Range Interpretation Comments WHITE BLOOD CELL COUNT (BEAKER) 24.8 K/ L 4.0-10.0 H (test code = 775) RED BLOOD CELL COUNT (BEAKER) 3.05 M/ L 4.00-5.00 L (test code = 761) HEMOGLOBIN (BEAKER) (test code = 7.1 GM/DL 12.0-15.5 L 410) HEMATOCRIT (BEAKER) (test code = 22.2 % 36.0-46.0 L 411) MEAN CORPUSCULAR VOLUME (BEAKER) 72.8 fL 82.0-99.0 L (test code = 753) MEAN CORPUSCULAR HEMOGLOBIN 23.3 pg 27.0-33.0 L (BEAKER) (test code = 751) MEAN CORPUSCULAR HEMOGLOBIN CONC 32.0 GM/DL 32.0-36.0 (BEAKER) (test code = 752) RED CELL DISTRIBUTION WIDTH 16.8 % 12.0-15.0 H (BEAKER) (test code = 412) PLATELET COUNT (BEAKER) (test 465 K/CU MM 150-430 H code = 756) MEAN PLATELET VOLUME (BEAKER) 9.1 fL 6.0-11.5 (test code = 754) NUCLEATED RED BLOOD CELLS 0 /100 WBC 0-0 (BEAKER) (test code = 413) (MANUAL DIFFERENTIAL)2017-11-07 16:00:00 Test Item Value Reference Range Interpretation Comments NEUTROPHILS - REL (DIFF) (BEAKER) 82 % (test code = 1359) LYMPHOCYTES - REL (DIFF) (BEAKER) 6 % (test code = 1360) MONOCYTES - REL (DIFF) (BEAKER) 7 % (test code = 1361) EOSINOPHILS - REL (DIFF) (BEAKER) 1 % (test code = 1362) BANDS - REL (DIFF) (BEAKER) (test 4 % 0-10 code = 1348) NEUTROPHILS - ABS (DIFF) (BEAKER) 20.34 K/ L 1.80-8.00 H (test code = 1365) LYMPHOCYTES - ABS (DIFF) (BEAKER) 1.49 K/ L 1.48-4.50 (test code = 1366) MONOCYTES - ABS (DIFF) (BEAKER) 1.74 K/ L 0.00-1.30 H (test code = 1367) EOSINOPHILS - ABS (DIFF) (BEAKER) 0.25 K/ L 0.00-0.50 (test code = 1368) BANDS-ABS (DIFF) (BEAKER) (test 1.0 K/ L 0.0-0.8 H code = 1349) TOTAL COUNTED (BEAKER) (test code 100 = 1351) BANDS + SEGMENTED NEUTROPHILS 21.33 (BEAKER) (test code = 1352) WBC MORPHOLOGY (BEAKER) (test code Normal = 487) PLT MORPHOLOGY (BEAKER) (test code Normal = 486) RBC MORPHOLOGY (BEAKER) (test code Normal = 762) C-REACTIVE [id number] 15:30:00 Test Item Value Reference Range Interpretation Comments C-REACTIVE PROTEIN (BEAKER) (test 47.39 mg/dL 0.00-0.50 H code = 676) COMPREHENSIVE METABOLIC [id number] 15:30:00 Test Item Value Reference Range Interpretation Comments TOTAL PROTEIN 7.0 gm/dL 6.0-8.5 (BEAKER) (test code = 770) ALBUMIN (BEAKER) 2.9 g/dL 3.5-5.0 L (test code = 1145) ALKALINE PHOSPHATASE 138 U/L 30-115 H (BEAKER) (test code = 346) BILIRUBIN TOTAL 1.1 mg/dL 0.1-1.3 (BEAKER) (test code = 377) SODIUM (BEAKER) (test 136 meq/L 135-148 code = 381) POTASSIUM (BEAKER) 3.4 meq/L 3.5-5.5 L (test code = 379) CHLORIDE (BEAKER) 99 meq/L 98-106 (test code = 382) CO2 (BEAKER) (test 24 meq/L 20-31 code = 355) BLOOD UREA NITROGEN 37 mg/dL 10-26 H (BEAKER) (test code = 354) CREATININE (BEAKER) 1.50 mg/dL 0.50-1.20 H (test code = 358) GLUCOSE RANDOM 102 mg/dL 70-110 (BEAKER) (test code = 652) CALCIUM (BEAKER) 8.9 mg/dL 8.5-10.5 (test code = 697) AST (SGOT) (BEAKER) 16 U/L 5-40 (test code = 353) ALT (SGPT) (BEAKER) 13 U/L 6-50 (test code = 347) EGFR (BEAKER) (test 43 mL/min/1.73 ESTIMA JUNE GFR IS code = 1092) sq m NOT ACCURATE CREATININE CLEARANCE IN PREDICTING GLOMERULAR FILTRATION RATE . ESTIMATED GFR I S NOT APPLICABLE FOR DIALYSIS PATIEN TS. BASIC METABOLIC [id number] 06:26:00 Test Item Value Reference Range Interpretation Comments SODIUM (BEAKER) 140 meq/L 135-148 (test code = 381) POTASSIUM (BEAKER) 3.7 meq/L 3.6-5.5 (test code = 379) CHLORIDE (BEAKER) 104 meq/L 98-106 (test code = 382) CO2 (BEAKER) (test 26 meq/L 24-32 code = 355) BLOOD UREA NITROGEN 21 mg/dL 10-26 (BEAKER) (test code = 354) CREATININE (BEAKER) 0.73 mg/dL 0.50-1.20 (test code = 358) GLUCOSE RANDOM 109 mg/dL 70-110 (BEAKER) (test code = 652) CALCIUM (BEAKER) 7.8 mg/dL 8.5-10.5 L (test code = 697) EGFR (BEAKER) (test 100 mL/min/1.73 ESTIM ATED GFR IS code = 1092) sq m NOT ACCURATE CREATININE CLEARANCE IN PREDICTING GLOMERULAR FILTRATION RATE . ESTIMATED GFR I S NOT APPLICABLE FOR DIALYSIS PATIEN TS. CBC W/PLT COUNT & AUTO [id number] 06:12:00 Test Item Value Reference Range Interpretation Comments WHITE BLOOD CELL COUNT (BEAKER) 11.1 K/ L 4.0-10.0 H (test code = 775) RED BLOOD CELL COUNT (BEAKER) 3.34 M/ L 4.00-5.00 L (test code = 761) HEMOGLOBIN (BEAKER) (test code = 7.9 GM/DL 12.0-15.0 L 410) HEMATOCRIT (BEAKER) (test code = 24.8 % 36.0-45.0 L 411) MEAN CORPUSCULAR VOLUME (BEAKER) 74.4 fL 82.0-99.0 L (test code = 753) MEAN CORPUSCULAR HEMOGLOBIN 23.6 pg 27.0-33.0 L (BEAKER) (test code = 751) MEAN CORPUSCULAR HEMOGLOBIN CONC 31.7 GM/DL 32.0-36.0 L (BEAKER) (test code = 752) RED CELL DISTRIBUTION WIDTH 15.9 % 12.0-15.0 H (BEAKER) (test code = 412) PLATELET COUNT (BEAKER) (test 234 K/CU MM 150-430 code = 756) MEAN PLATELET VOLUME (BEAKER) 8.7 fL 6.5-10.5 (test code = 754) NEUTROPHILS RELATIVE PERCENT 78 % (BEAKER) (test code = 429) LYMPHOCYTES RELATIVE PERCENT 11 % (BEAKER) (test code = 430) MONOCYTES RELATIVE PERCENT 9 % (BEAKER) (test code = 431) EOSINOPHILS RELATIVE PERCENT 2 % (BEAKER) (test code = 432) BASOPHILS RELATIVE PERCENT 0 % (BEAKER) (test code = 437) NEUTROPHILS ABSOLUTE COUNT 9.37 K/ L 1.80-8.00 H (BEAKER) (test code = 670) LYMPHOCYTES ABSOLUTE COUNT 1.32 K/ L 1.48-4.50 L (BEAKER) (test code = 414) MONOCYTES ABSOLUTE COUNT (BEAKER) 1.03 K/ L 0.00-1.30 (test code = 415) EOSINOPHILS ABSOLUTE COUNT 0.18 K/ L 0.00-0.50 (BEAKER) (test code = 416) BASOPHILS ABSOLUTE COUNT (BEAKER) 0.01 K/ L 0.00-0.20 (test code = 417) POCT-GLUCOSE [id number] 05:55:00 Test Item Value Reference Range Interpretation Comments POC-GLUCOSE METER 120 mg/dL 70-110 [facility] [address] [facility] ([facility] (test code [facility] = 1538) [place] [address] POCT-GLUCOSE [id number] 21:07:00 Test Item Value Reference Range Interpretation Comments POC-GLUCOSE METER 121 mg/dL 70-110 H TESTED AT [facility] [address] (BEAKER) (test code [facility] = 1538) [place] [address] POCT-GLUCOSE [id number] 17:45:00 Test Item Value Reference Range Interpretation Comments POC-GLUCOSE METER 131 mg/dL 70-110 H TESTED AT [facility] [address] (BEAKER) (test code [facility] = 1538) [place] [address] HEMOGLOBIN AND [id number] 14:26:00 Test Item Value Reference Range Interpretation Comments HEMOGLOBIN (BEAKER) (test code = 7.9 GM/DL 12.0-15.0 L 410) HEMATOCRIT (BEAKER) (test code = 24.6 % 36.0-45.0 L 411) POCT-GLUCOSE [id number] 11:22:00 Test Item Value Reference Range Interpretation Comments POC-GLUCOSE METER 134 mg/dL 70-110 H TESTED AT [facility] [address] (BEAKER) (test code [facility] = 1538) [place] [address] BASIC METABOLIC [id number] 05:16:00 Test Item Value Reference Range Interpretation Comments SODIUM (BEAKER) 136 meq/L 135-148 (test code = 381) POTASSIUM (BEAKER) 3.8 meq/L 3.6-5.5 (test code = 379) CHLORIDE (BEAKER) 102 meq/L 98-106 (test code = 382) CO2 (BEAKER) (test 26 meq/L 24-32 code = 355) BLOOD UREA NITROGEN 32 mg/dL 10-26 H (BEAKER) (test code = 354) CREATININE (BEAKER) 1.10 mg/dL 0.50-1.20 (test code = 358) GLUCOSE RANDOM 119 mg/dL 70-110 H (BEAKER) (test code = 652) CALCIUM (BEAKER) 7.5 mg/dL 8.5-10.5 L (test code = 697) EGFR (BEAKER) (test 62 mL/min/1.73 ESTIMA JUNE GFR IS code = 1092) sq m NOT ACCURATE CREATININE CLEARANCE IN PREDICTING GLOMERULAR FILTRATION RATE . ESTIMATED GFR I S NOT APPLICABLE FOR DIALYSIS PATIEN TS. Specimen recollected. [id number] 04:56:00 Test Item Value Reference Range Interpretation Comments POC-GLUCOSE METER 141 mg/dL 70-110 H TESTED AT [facility] [address] (BEAKER) (test code [facility] = 1538) [place] [address] HEMOGLOBIN AND [id number] 04:10:00 Test Item Value Reference Range Interpretation Comments HEMOGLOBIN (BEAKER) (test code = 7.3 GM/DL 12.0-15.0 L 410) HEMATOCRIT (BEAKER) (test code = 22.9 % 36.0-45.0 L 411) Results repeated to verify. [id number](MANUAL DIFFERENTIAL)[id number] 21:35:00 Test Item Value Reference Range Interpretation Comments NEUTROPHILS - REL (DIFF) (BEAKER) 81 % (test code = 1359) LYMPHOCYTES - REL (DIFF) (BEAKER) 9 % (test code = 1360) MONOCYTES - REL (DIFF) (BEAKER) 6 % (test code = 1361) EOSINOPHILS - REL (DIFF) (BEAKER) 1 % (test code = 1362) BANDS - REL (DIFF) (BEAKER) (test 3 % 0-10 code = 1348) NEUTROPHILS - ABS (DIFF) (BEAKER) 10.45 K/ L 1.80-8.00 H (test code = 1365) LYMPHOCYTES - ABS (DIFF) (BEAKER) 1.16 K/ L 1.48-4.50 L (test code = 1366) MONOCYTES - ABS (DIFF) (BEAKER) 0.77 K/ L 0.00-1.30 (test code = 1367) EOSINOPHILS - ABS (DIFF) (BEAKER) 0.13 K/ L 0.00-0.50 (test code = 1368) BANDS-ABS (DIFF) (BEAKER) (test 0.4 K/ L 0.0-0.8 code = 1349) TOTAL COUNTED (BEAKER) (test code 100 = 1351) BANDS + SEGMENTED NEUTROPHILS 10.84 (BEAKER) (test code = 1352) WBC MORPHOLOGY (BEAKER) (test Normal code = 487) PLT MORPHOLOGY (BEAKER) (test Normal code = 486) HYPOCHROMIA (BEAKER) (test code = 2+ moderate 963) MICROCYTES (BEAKER) (test code = 1+ few 965) CBC W/PLT COUNT & AUTO [id number] 21:34:00 Test Item Value Reference Range Interpretation Comments WHITE BLOOD CELL COUNT 12.9 K/ L 4.0-10.0 H (BEAKER) (test code = 775) RED BLOOD CELL COUNT 3.37 M/ L 4.00-5.00 L (BEAKER) (test code = 761) HEMOGLOBIN (BEAKER) 7.7 GM/DL 12.0-15.0 L (test code = 410) HEMATOCRIT (BEAKER) 24.8 % 36.0-45.0 L (test code = 411) MEAN CORPUSCULAR VOLUME 73.6 fL 82.0-99.0 L (BEAKER) (test code = 753) MEAN CORPUSCULAR 23.0 pg 27.0-33.0 L HEMOGLOBIN (BEAKER) (test code = 751) MEAN CORPUSCULAR 31.2 GM/DL 32.0-36.0 L HEMOGLOBIN CONC (BEAKER) (test code = 752) RED CELL DISTRIBUTION 15.9 % 12.0-15.0 H WIDTH (BEAKER) (test code = 412) PLATELET COUNT (BEAKER) 253 K/CU MM 150-430 Plat elet count (test code = 756) verified. MEAN PLATELET VOLUME 8.2 fL 6.5-10.5 (BEAKER) (test code = 754) POCT-GLUCOSE [id number] 21:17:00 Test Item Value Reference Range Interpretation Comments POC-GLUCOSE METER 126 mg/dL 70-110 H TESTED AT [facility] [address] (BEAKER) (test code [facility] = 1538) [place] [address] POCT-GLUCOSE [id number] 18:04:00 Test Item Value Reference Range Interpretation Comments POC-GLUCOSE METER 117 mg/dL 70-110 H TESTED AT [facility] [address] (BEAKER) (test code [facility] = 1538) [place] [address] POCT-GLUCOSE [id number] 11:38:00 Test Item Value Reference Range Interpretation Comments POC-GLUCOSE METER 133 mg/dL 70-110 H TESTED AT [facility] [address] (BEAKER) (test code [facility] = 1538) [place] [address] BASIC METABOLIC [id number] 04:20:00 Test Item Value Reference Range Interpretation Comments SODIUM (BEAKER) 137 meq/L 135-148 (test code = 381) POTASSIUM (BEAKER) 4.4 meq/L 3.6-5.5 (test code = 379) CHLORIDE (BEAKER) 102 meq/L 98-106 (test code = 382) CO2 (BEAKER) (test 26 meq/L 24-32 code = 355) BLOOD UREA NITROGEN 19 mg/dL 10-26 (BEAKER) (test code = 354) CREATININE (BEAKER) 0.86 mg/dL 0.50-1.20 (test code = 358) GLUCOSE RANDOM 134 mg/dL 70-110 H (BEAKER) (test code = 652) CALCIUM (BEAKER) 7.7 mg/dL 8.5-10.5 L (test code = 697) EGFR (BEAKER) (test 82 mL/min/1.73 ESTIMA JUNE GFR IS code = 1092) sq m NOT ACCURATE CREATININE CLEARANCE IN PREDICTING GLOMERULAR FILTRATION RATE . ESTIMATED GFR I S NOT APPLICABLE FOR DIALYSIS PATIEN TS. HEMOGLOBIN AND [id number] 04:11:00 Test Item Value Reference Range Interpretation Comments HEMOGLOBIN (HARDIK) (test code = 8.1 GM/DL 12.0-15.0 L 410) [facility] (test code = 25.6 % 36.0-45.0 L 411) POCT-GLUCOSE [id number] 04:03:00 Test Item Value Reference Range Interpretation Comments POC-GLUCOSE METER 151 mg/dL 70-110 H TESTED AT [facility] [address] ([facility]) ([place] [facility] = [address]) [place] [address] RAD, HIP, 1 VIEW, [id number] 21:16:00Reason for exam:->postopShould this be performed at the bedside?->YesFINAL REPORT Exam: AP hip CLINICAL INDICATION: Right hip arthroplasty IMPRESSION: Compared with intraoperative image performed earlier today at 1400 hours. The patient is status post a right hip arthroplasty. The alignment is near anatomic. No definite evidence of a periprosthetic fracture. As before, postoperative changes are noted in the adjacent soft tissues. Signed: Cheng Garcia MDReport Verified Date/Time: 10/29/2017 21:16:21 [address] POCT-GLUCOSE [id number] 20:20:00 Test Item Value Reference Range Interpretation Comments POC-GLUCOSE METER 76 mg/dL 70-110 TESTED AT [facility] [address] ([facility]) (test code = [place] [facility] 15[address]) [place] [address] POCT-GLUCOSE [id number] 15:13:00 Test Item Value Reference Range Interpretation Comments POC-GLUCOSE METER 150 mg/dL 70-110 H TESTED AT [facility] [address] ([facility]) (test [place] [facility] = 1538) [place] [address] RAD, HIP, OPERATIVE, [id number] 14:41:00Reason for exam:->RequiredFINAL REPORT RIGHT HIP ONE VIEW HISTORY: Right hip pain, right hip arthroplasty COMPARISON: None FINDINGS: Single intraoperative image of the right hip/low pelvis shows in progress changes of right hip total arthroplasty. A reamer is present in the proximal right femur. The acetabular region is obscured by overlying hardware. Signed: Ceci Aldrich MDReport Verified Date/Time: 10/29/2017 14:41:51 Reading Location: [facility] Radiology Reading Room POCT- GLUCOSE [id number] 09:53:00 Test Item Value Reference Range Interpretation Comments POC-GLUCOSE METER 104 mg/dL 70-110 TESTED AT [facility] [address] (BEAKER) (test code [facility] = 1538) [place] [address] BASIC METABOLIC [id number] 12:23:00 Test Item Value Reference Range Interpretation Comments SODIUM (BEAKER) 142 meq/L 135-148 (test code = 381) POTASSIUM (BEAKER) 3.6 meq/L 3.6-5.5 (test code = 379) CHLORIDE (BEAKER) 102 meq/L 98-106 (test code = 382) CO2 (BEAKER) (test 27 meq/L 24-32 code = 355) BLOOD UREA NITROGEN 20 mg/dL 10-26 (BEAKER) (test code = 354) CREATININE (BEAKER) 0.91 mg/dL 0.50-1.20 (test code = 358) GLUCOSE RANDOM 103 mg/dL 70-110 (BEAKER) (test code = 652) CALCIUM (BEAKER) 9.3 mg/dL 8.5-10.5 (test code = 697) EGFR (BEAKER) (test 77 mL/min/1.73 ESTIMA JUNE GFR IS code = 1092) sq m NOT ACCURATE CREATININE CLEARANCE IN PREDICTING GLOMERULAR FILTRATION RATE . ESTIMATED GFR I S NOT APPLICABLE FOR DIALYSIS PATIEN TS. URINALYSIS W/ [id number] 12:21:00 Test Item Value Reference Range Interpretation Comments COLOR (BEAKER) (test code = 470) Yellow CLARITY (BEAKER) (test code = 469) Clear SPECIFIC GRAVITY UA (BEAKER) (test 1.025 1.001-1.035 code = 468) PH UA (BEAKER) (test code = 467) 5.5 5.0-8.0 PROTEIN UA (BEAKER) (test code = Trace Negative A 464) GLUCOSE UA (BEAKER) (test code = Negative Negative 365) KETONES UA (BEAKER) (test code = Trace Negative A 371) BILIRUBIN UA (BEAKER) (test code = Negative Negative 462) BLOOD UA (BEAKER) (test code = 461) Trace Negative A NITRITE UA (BEAKER) (test code = Negative Negative 465) LEUKOCYTE ESTERASE UA (BEAKER) Negative Negative (test code = 466) UROBILINOGEN UA (BEAKER) (test code 0.2 mg/dL 0.2-1.0 = 463) URIC ACID CRYSTALS (BEAKER) (test Few code = 1583) RBC UA-MANUAL (BEAKER) (test code = 5-10 /HPF 1659) WBC UA-MANUAL (BEAKER) (test code = <5 /HPF 1661) SQUAMOUS EPITHELIAL MANUAL (BEAKER) <5 /HPF (test code = 1663) SOURCE(BEAKER) (test code = 0865) CBC W/PLT COUNT & AUTO [id number] 12:18:00 Test Item Value Reference Range Interpretation Comments WHITE BLOOD CELL COUNT (BEAKER) 7.6 K/ L 4.0-10.0 (test code = 775) RED BLOOD CELL COUNT (BEAKER) 4.92 M/ L 4.00-5.00 (test code = 761) HEMOGLOBIN (BEAKER) (test code = 11.4 GM/DL 12.0-15.0 L 410) HEMATOCRIT (BEAKER) (test code = 36.2 % 36.0-45.0 411) MEAN CORPUSCULAR VOLUME (BEAKER) 73.5 fL 82.0-99.0 L (test code = 753) MEAN CORPUSCULAR HEMOGLOBIN 23.2 pg 27.0-33.0 L (BEAKER) (test code = 751) MEAN CORPUSCULAR HEMOGLOBIN CONC 31.6 GM/DL 32.0-36.0 L (BEAKER) (test code = 752) RED CELL DISTRIBUTION WIDTH 15.7 % 12.0-15.0 H (BEAKER) (test code = 412) PLATELET COUNT (BEAKER) (test 357 K/CU MM 150-430 code = 756) MEAN PLATELET VOLUME (BEAKER) 8.8 fL 6.5-10.5 (test code = 754) NEUTROPHILS RELATIVE PERCENT 66 % (BEAKER) (test code = 429) LYMPHOCYTES RELATIVE PERCENT 24 % (BEAKER) (test code = 430) MONOCYTES RELATIVE PERCENT 7 % (BEAKER) (test code = 431) EOSINOPHILS RELATIVE PERCENT 2 % (BEAKER) (test code = 432) BASOPHILS RELATIVE PERCENT 1 % (BEAKER) (test code = 437) NEUTROPHILS ABSOLUTE COUNT 5.10 K/ L 1.80-8.00 (BEAKER) (test code = 670) LYMPHOCYTES ABSOLUTE COUNT 1.90 K/ L 1.48-4.50 (BEAKER) (test code = 414) MONOCYTES ABSOLUTE COUNT (BEAKER) 0.50 K/ L 0.00-1.30 (test code = 415) EOSINOPHILS ABSOLUTE COUNT 0.10 K/ L 0.00-0.50 (BEAKER) (test code = 416) BASOPHILS ABSOLUTE COUNT (BEAKER) 0.00 K/ L 0.00-0.20 (test code = 417) MRSA [id number] 08:33:00 Test Item Value Reference Range Interpretation Comments CULTURE (BEAKER) (test code No MRSA isolated = 1095)
[2020-08-20] MEDS ORDERED: KETOROLAC 30 MG/ML INJ ONE (00:35)
[2020-08-20 03:25] LABS: Absolute Lymphocytes (CBC) 1.6 K/uL (0.7-4.9); Basophils % 1.4 % (0-1.3); Hematocrit 29.7 % (36.0-45.0); Lymphocytes % 18.4 % (15.3-44.8); RBC Red Blood Cell Count 4.45 M/uL (3.86-4.86)
[2020-08-20 03:43] LABS: ALT/SGPT 14 U/L (12-78); AST/SGOT 10 U/L (15-37); Albumin 3.4 g/dL (3.4-5.0); Alkaline Phosphatase 119 U/L (45-117); BUN Blood Urea Nitrogen 13 mg/dL (7-18); Bicarbonate 29 mmol/L (21-32); Bilirubin Total 0.3 mg/dL (0.2-1.0); Glucose Level 93 mg/dL (74-106); Potassium 3.9 mmol/L (3.5-5.1); Protein, Total 8.4 g/dL (6.4-8.2); Sodium Level 140 mmol/L (136-145)
[2020-08-20 03:51] LABS: Anisocytosis 1+; Blood Morphology Comment NOTED (NOT SEEN); Hypochromasia 1+; Macrocytosis 1+; Ovalocytes 1+; Platelet Estimate DECR; White Blood Cell Scan OK (OK)
[2020-08-20] MEDS ORDERED: HYDROCODONE/APAP 10/325 TAB ONE (06:38)
[2020-08-20] MEDS ORDERED: FAMOTIDINE 20 MG/2 ML VIAL IV ONE (08:29)
[2020-08-20] MEDS ORDERED: DIPHENHYDRAMINE 50 MG/ML VIAL ONE (08:29)
[2020-08-20] MEDS ORDERED: METHYLPREDNISOLONE 125 MG INJ ONE (08:29)
[2020-08-20 09:09] LABS: Protime INR 1.15
[2020-08-20 09:16] LABS: ALT/SGPT 13 U/L (12-78); AST/SGOT 9 U/L (15-37); Albumin 3.2 g/dL (3.4-5.0); Alkaline Phosphatase 103 U/L (45-117); BUN Blood Urea Nitrogen 13 mg/dL (7-18); Bicarbonate 30 mmol/L (21-32); Bilirubin Direct 0.1 mg/dL (0-0.2); Bilirubin Total 0.3 mg/dL (0.2-1.0); Glucose Level 98 mg/dL (74-106); Magnesium 2.4 mg/dL (1.8-2.4); NT PRO-BNP 100 pg/mL (<125); Potassium 3.8 mmol/L (3.5-5.1); Protein, Total 7.4 g/dL (6.4-8.2); Sodium Level 139 mmol/L (136-145); Troponin (Emerg Dept Use Only) < 0.02 ng/mL (0.0-0.045)
[2020-08-20] MEDS ORDERED: PIPER/TAZO/NS 3.375gm 3.375 GM/100 ML BAG ONE (09:23)
--- NOTE | 2020-08-20 09:26 | RAD REPORT ---
EXAM DESCRIPTION: CT - Angio Aorta For Dissection - 08/20/2020 8:25 am CLINICAL HISTORY: . Chest and abdominal pain COMPARISON: August 20, 2020 cat scan TECHNIQUE: Computed tomography angiography of the chest, abdomen pelvis were obtained. 100 cc Isovue 370 was administered intravenously. Coronal and sagittal reconstruction were performed. MIP 3D reconstruction was performed All CT scans are performed using dose optimization technique as appropriate and may include automated exposure control or mA/KV adjustment according to patient size. FINDINGS: An aortic dissection is not seen. An aortic aneurysm is not displayed. The celiac, SMA and SENTHIL are patent . A lung consolidation is not present. A pericardial effusion is not seen. A pleural effusion is not n oted. Left cystectomy The liver,spleen, pancreas, adrenals and kidneys demonstrate no significant abnormality. A 20 x 9 x 9 centimeter mass extends from just above the level of iliac crest to the proximal aspect of the left femur. The epicenter is the left iliopsoas muscle. The mass displaces left iliac vessels to the right. The mass demonstrates mild enhancement. Several lymph nodes along left iliac chain left inguinal region. . The largest measures 4 x 2.5 centimeters. IMPRESSION: Negative for an aortic dissection. 20 centimeter mass extends from left lower abdomen to the upper aspect of the left leg probably neopl asm. Possible include lymphoma and sarcoma
--- NOTE | 2020-08-20 09:29 | ER ---
Nurse's Notes [facility] Name: Sade Galdamez Age: 60 yrs Sex: Female : 1960 Arrival Date: 08/19/2020 Time: 23:07 Bed 17 Private MD: Diagnosis: Abdominal tenderness-iliopsoas muscle mass;Pain in left leg-swelling, lymphadenopathy, malignant Presentation: 08/19 23:13 Chief complaint: Patient states: I am having left leg swelling for approximately 3 rr5 months now and the pain in getting worse. Coronavirus screen: Client denies travel out of the [place] in the last 14 days. At this time, the client does not indicate any symptoms associated with coronavirus-19. Ebola Screen: Patient negative for fever greater than or equal to 101.5 degrees Fahrenheit, and additional compatible Ebola Virus Disease symptoms Patient denies exposure to infectious person. Patient denies travel to an Ebola-affected area in the 21 days before illness onset. Initial Sepsis Screen: Does the patient meet any 2 criteria? No. Patient's initial sepsis screen is negative. Does the patient have a suspected source of infection? No. Patient's initial sepsis screen is negative. Risk Assessment: Do you want to hurt yourself or someone else? Patient reports no desire to harm self or others. Onset of symptoms was May 2020. 23:13 Method Of Arrival: Wheelchair rr5 23:13 Acuity: ABDIRIZAK 3 rr5 Historical: - Allergies: 23:18 iodine; rr5 - Home Meds: 23:18 Tramadol Oral [Active]; Ibuprofen Oral [Active]; rr5 - PMHx: 23:18 breast cancer; Hypertension; rr5 - PSHx: 23:18 hip surgery; Mastectomy; tendonsurgery; rr5 - Immunization history:: Adult Immunizations up to date. - Social history:: Smoking status: unknown. Screenin/06 00:38 Abuse screen: Denies threats or abuse. Denies injuries from another. Nutritional lp1 screening: No deficits noted. Tuberculosis screening: No symptoms or risk factors identified. Fall Risk Total Schaeffer Fall Scale indicates High Risk Score (45 or more points). Fall prevention measures have been instituted. Side Rails Up X 2 As available patient and family educated on Fall Prevention Program and Strategies. Assessment: 00:00 General: Appears uncomfortable, Behavior is appropriate for age. Pain: Complains of lp1 pain in left leg Pain currently is 8 out of 10 on a pain scale. Quality of pain is described as pressure. Neuro: Level of Consciousness is awake, alert, obeys commands, Oriented to person, place, time, situation, Intact. Cardiovascular: Patient's skin is warm and dry. Edema is 3+ to left upper thigh, left lower thigh, left knee, left midcalf, left ankle, left foot and left toes. Respiratory: Respiratory effort is even, unlabored. GI: No signs and/or symptoms were reported involving the gastrointestinal system. : No signs and/or symptoms were reported regarding the genitourinary system. EENT: No signs and/or symptoms were reported regarding the EENT system. Derm: Skin is intact, Skin is dry, Skin is normal. Musculoskeletal: Circulation, motion, and sensation intact. Swelling present in left leg. 01:10 Reassessment: Ultrasound at bedside. lp1 02:30 Reassessment: Patient appears in no apparent distress at this time. Patient is alert, lp1 oriented x 3, equal unlabored respirations, skin warm/dry/pink. patient aware of pending order for CT. 03:20 Reassessment: Patient reports previous imaging with IV contrast, slight itching to skin lp1 the following day; Denied any need for medial interventions at that time. 03:55 Reassessment: CT notified nurse of IV infiltration to R FA. lp1 04:40 Reassessment: Fence Setter Brianne Steele RN, unable to obtain successful peripheral lp1 IV to patient in CT room; Provider notified. 06:02 Reassessment: Dr. Nunez at bedside to discuss results with patient; Verbal order for lp1 [place] 10-325mg PO x1 now. 12:22 Reassessment: report given to SILAS Ruby. tr6 Vital Signs: 08/19 23:13 BP 169 / 89; Pulse 93; Resp 19; Temp 98.8; Pulse Ox 99% ; Weight 127.01 kg; Height 5 rr5 ft. 5 in. (165.10 cm); Pain 10/10; 08/20 02:00 BP 159 / 69; Pulse 88; Resp 18; Pulse Ox 97% on R/A; lp1 06:00 BP 142 / 46; Pulse 90; Resp 18; Pulse Ox 97% on R/A; lp1 08/19 23:13 Body Mass Index 46.59 (127.01 kg, 165.10 cm) rr5 ED Course: 08/19 23:07 Patient arrived in ED. cf2 23:15 Triage completed. rr5 23:18 Arm band placed on right wrist. rr5 23:35 Ozzie Nunez MD is Attending Physician. tw4 23:42 Kati Sumner, RN is Primary Nurse. lp1 08/20 00:38 Patient has correct armband on for positive identification. lp1 01:30 Extremity Venous Uni Ltd US In Process Unspecified. EDMS 02:40 Missed attempt(s): 22 gauge in left antecubital area. lp1 03:11 Initial lab(s) drawn, by me, sent to lab. Missed attempt(s): 20 gauge in left bb antecubital area. Bleeding controlled, band aid applied, catheter tip intact. Inserted saline lock: 20 gauge in right antecubital area, using aseptic technique. Blood collected. 04:57 Pelvis Wo Cont In Process Unspecified. EDMS 07:24 Attending Physician role handed off by Ozzie Nunez MD ruddy 07:24 Jean Carlos Pinzon MD is Attending Physician. ruddy 07:45 Accessed RUE 18G 10CM MIDLINE. bp 08:25 CT Aorta for Dissection In Process Unspecified. EDMS 08:47 XRAY Chest (1 view) In Process Unspecified. EDMS 09:22 No provider procedures requiring assistance completed. tr6 09:32 initiated a transfer with Rosi Crespo Rn from the [facility]. eb 09:[address] Tejada the hospitalist aviation technician for [facility] with Dr. Pinzon for eb patient transfer consultation. 10:02 administrative approval given by Rosi Crespo Rn/ patient has been accepted to [facility] Rm 2121/ Dr. Vandana Tejada has accepted the patient in transfer/ report to be called to [phone]. 12:43 Converted IV to saline lock on right Patient transferred, IV remains in place. tr6 Administered Medications: 00:25 Drug: TORadol (ketorolac) 60 mg Route: IM; Site: left gluteus; lp1 01:30 Follow up: Response: No adverse reaction lp1 06:21 Drug: [place] (HYDROcodone-acetaminophen) 10 mg-325 mg 1 tabs Route: PO; lp1 08:10 Drug: Pepcid (famotidine) 40 mg Route: IVP; Site: right upper arm; aa5 08:10 Drug: SOLU-Medrol (methylPrednisoLONE) 125 mg Route: IVP; Site: right upper arm; aa5 08:12 Drug: Benadryl (diphenhydrAMINE) 50 mg Route: IVP; Site: right upper arm; aa5 08:55 Drug: NS 0.9% 500 ml Route: IV; Rate: bolus; Site: right upper arm; tr6 08:55 Drug: NS 0.9% 1000 ml Route: IV; Rate: 125 ml/hr; Site: right upper arm; tr6 09:17 Drug: Zosyn (piperacillin-tazobactam) 3.375 grams Route: IVPB; Infused Over: 60 mins; tr6 Site: right upper arm; 12:38 Drug: Zofran (Ondansetron) 4 mg Route: IVP; Site: right upper arm; tr6 12:38 Drug: morphine 4 mg Route: IVP; Site: right upper arm; tr6 Outcome: 09:28 ER care complete, transfer ordered by MD. fox 12:42 Transferred by ground EMS to [facility]. tr6 12:42 Condition: stable 12:42 Instructed on the need for transfer, Demonstrated understanding of instructions, follow-up care, medications. 12:43 Patient left the ED. tr6 Signatures: Dispatcher [employer] EDJean Carlos Boston MD MD cha Ballard, Brenda RN RN bb Nadja Hernandez, RN RN aa5 Kati Sumner RN RN lp1 Jarad Ahn RN Ozzie Urias MD MD tw4 Rose Adams Raymond RN RN rr5 Imani Silva 2 Lakeisha Ortez RN RN tr6
--- NOTE | 2020-08-20 09:29 | EDPHYS ---
Physician Documentation [facility] Name: Sade Galdamez Age: 60 yrs Sex: Female : 1960 Arrival Date: 08/19/2020 Time: 23:07 Bed 17 Private MD: [facility] Physician Jean Carlos Pinzon HPI: 08/19 23:50 This 60 yrs old Black Female presents to ER via Wheelchair with complaints of Leg Pain, tw4 Leg Swelling. 23:50 The patient presents with an injury, pain, that is chronic. The complaints affect the tw4 lateral aspect of left thigh, lateral aspect of left knee, lateral aspect of left calf, left hamstring, posterior aspect of left knee, left calf, medial aspect of left thigh, medial aspect of left knee, medial aspect of left calf, left quadriceps, left knee and left pulido. Context: The problem was sustained at home, resulted from the patient falling, the patient can partially bear weight, can ambulate using a cane, Problem is a result from a previous injury: Yes. FALL. Onset: The symptoms/episode began/occurred 2 month(s) ago. Modifying factors: The symptoms are alleviated by nothing. the symptoms are aggravated by nothing. Severity of symptoms: At their worst the symptoms were moderate. The patient has not experienced similar symptoms in the past. Historical: - Allergies: 23:18 iodine; rr5 - Home Meds: 23:18 Tramadol Oral [Active]; Ibuprofen Oral [Active]; rr5 - PMHx: 23:18 breast cancer; Hypertension; rr5 - PSHx: 23:18 hip surgery; Mastectomy; tendonsurgery; rr5 - Immunization history:: Adult Immunizations up to date. - Social history:: Smoking status: unknown. ROS: 23:50 Constitutional: Negative for fever, chills, and weight loss, Eyes: Negative for injury, tw4 pain, redness, and discharge, Cardiovascular: Negative for chest pain, palpitations, and edema, Respiratory: Negative for shortness of breath, cough, wheezing, and pleuritic chest pain, Abdomen/GI: Negative for abdominal pain, nausea, vomiting, diarrhea, and constipation, Back: Negative for injury and pain, Skin: Negative for injury, rash, and discoloration, Neuro: Negative for headache, weakness, numbness, tingling, and seizure. 23:50 MS/extremity: Positive for injury or acute deformity, pain, swelling, tenderness. Exam: 23:50 Constitutional: This is a well developed, well nourished patient who is awake, alert, tw4 and in no acute distress. Head/Face: Normocephalic, atraumatic. Chest/axilla: Normal chest wall appearance and motion. Nontender with no deformity. No lesions are appreciated. Cardiovascular: Regular rate and rhythm with a normal S1 and S2. No gallops, murmurs, or rubs. Normal PMI, no JVD. No pulse deficits. Respiratory: Lungs have equal breath sounds bilaterally, clear to auscultation and percussion. No rales, rhonchi or wheezes noted. No increased work of breathing, no retractions or nasal flaring. Abdomen/GI: Soft, non-tender, with normal bowel sounds. No distension or tympany. No guarding or rebound. No evidence of tenderness throughout. Back: No spinal tenderness. No costovertebral tenderness. Full range of motion. Neuro: Awake and alert, GCS 15, oriented to person, place, time, and situation. Cranial nerves II-XII grossly intact. Motor strength 5/5 in all extremities. Sensory grossly intact. Cerebellar exam normal. Normal gait. 23:50 Musculoskeletal/extremity: Extremities: noted in the left leg: decreased ROM, pain, swelling, tenderness. Vital Signs: 23:13 BP 169 / 89; Pulse 93; Resp 19; Temp 98.8; Pulse Ox 99% ; Weight 127.01 kg; Height 5 rr5 ft. 5 in. (165.10 cm); Pain 10/10; 0606 02:00 BP 159 / 69; Pulse 88; Resp 18; Pulse Ox 97% on R/A; lp1 06:00 BP 142 / 46; Pulse 90; Resp 18; Pulse Ox 97% on R/A; lp1 06 23:13 Body Mass Index 46.59 (127.01 kg, 165.10 cm) rr5 MDM: 07:27 Patient medically screened. [facility] 09:59 Differential diagnosis: contusion, abrasion, tendonitis. Data reviewed: vital signs, [facility] nurses notes, lab test result(s), EKG, radiologic studies, CT scan, doppler, plain films. Data interpreted: teletypesetter monitor: rate is 90 beats/min, rhythm is regular, Pulse oximetry: on room air is 97 %. Test interpretation: by ED physician or midlevel provider: ECG, plain radiologic studies. Counseling: I had a detailed discussion with the patient and/or guardian regarding: the historical points, exam findings, and any diagnostic results supporting the discharge/admit diagnosis, lab results, radiology results, the need to transfer to another facility, for higher level of care, [facility] does not immediately have the required specialist. 08/20 02:05 Order name: CBC with Diff; Complete Time: 04:07 tw4 08/20 04:07 Interpretation: Normal except: HGB 9.1; HCT 29.7; MCV 66.8; MCH 20.4; MCHC 30.5; RDW tw4 18.8. 08/20 02:05 Order name: CMP; Complete Time: 04:07 tw4 08/20 04:07 Interpretation: Within normal limits. tw4 08/20 03:28 Order name: CBC Smear Scan; Complete Time: 04:07 EDMI 08/20 04:07 Interpretation: Normal except. tw 08/20 07:47 Order name: Basic Metabolic Panel [facility] 08/20 07:47 Order name: LFT's [facility] 08/20 07:47 Order name: Magnesium [facility] 08/20 07:47 Order name: NT PRO-BNP; Complete Time: 09:29 [facility] 08/20 07:47 Order name: PT-INR; Complete Time: 09:29 [facility] 08/20 07:47 Order name: Troponin (emerg Dept Use Only); Complete Time: 09:29 [facility] 08/20 07:47 Order name: Basic Metabolic Panel; Complete Time: 09:29 EDMI 08/20 07:47 Order name: Liver (Hepatic) Function; Complete Time: 09:29 EDMI 08/20 07:47 Order name: Magnesium; Complete Time: 09:29 EDMI 08/20 11:54 Order name: SARS-COV-2 RT PCR EDMI 08/19 23:37 Order name: Extremity Venous Uni Ltd US; Complete Time: 09:59 tw 08/20 04:40 Order name: Pelvis Wo Cont EDMI 08/20 07:47 Order name: XRAY Chest (1 view) [facility] 08/20 07:47 Order name: CT Aorta for Dissection; Complete Time: 09:29 [facility] 08/20 07:47 Order name: Cardiac monitoring; Complete Time: 08:39 [facility] 08/20 07:47 Order name: EKG - Nurse/Tech [facility] 08/20 07:47 Order name: IV Saline Lock; Complete Time: 08:39 [facility] 08/20 07:47 Order name: Labs collected and sent; Complete Time: 08:40 [facility] 08/20 07:47 Order name: O2 Per Protocol; Complete Time: 08:40 [facility] 08/20 07:47 Order name: O2 Sat Monitoring; Complete Time: 08:40 [facility] Administered Medications: 00:25 Drug: TORadol (ketorolac) 60 mg Route: IM; Site: left gluteus; lp1 01:30 Follow up: Response: No adverse reaction lp1 06:21 Drug: Lantry (HYDROcodone-acetaminophen) 10 mg-325 mg 1 tabs Route: PO; lp1 08:10 Drug: Pepcid (famotidine) 40 mg Route: IVP; Site: right upper arm; aa5 08:10 Drug: SOLU-Medrol (methylPrednisoLONE) 125 mg Route: IVP; Site: right upper arm; aa5 08:12 Drug: Benadryl (diphenhydrAMINE) 50 mg Route: IVP; Site: right upper arm; aa5 08:55 Drug: NS 0.9% 500 ml Route: IV; Rate: bolus; Site: right upper arm; tr6 08:55 Drug: NS 0.9% 1000 ml Route: IV; Rate: 125 ml/hr; Site: right upper arm; tr6 09:17 Drug: Zosyn (piperacillin-tazobactam) 3.375 grams Route: IVPB; Infused Over: 60 mins; tr6 Site: right upper arm; 12:38 Drug: Zofran (Ondansetron) 4 mg Route: IVP; Site: right upper arm; tr6 12:38 Drug: morphine 4 mg Route: IVP; Site: right upper arm; tr6 Disposition: 08/20/20 09:28 Transfer ordered to [facility]. Diagnosis are Abdominal tenderness - iliopsoas muscle mass, Pain in left leg - swelling, lymphadenopathy, malignant. - Reason for transfer: Higher level of care. - Accepting physician is to hospitalist. - Condition is Stable. - Problem is new. - Symptoms have improved. Signatures: Dispatcher [employer] EDMS Jean Carlos Pinzon MD MD cha Calderon, Audri, RN RN aa5 Kati Sumner RN RN lp1 Ozzie Nunez MD MD tw4 Eduardo Henderson, SILAS RN rr5 Lakeisha Ortez RN RN tr6 Corrections: (The following items were deleted from the chart) 04:40 02:06 Pelvis W/Cont+CT.RAD.BRZ ordered. EDMS EDMS 10:52 07:47 CORONAVIRUS+MR.LAB.BRZ ordered. EDMS EDMS 12:43 09:28 08/20/2020 09:28 Transfer ordered to [facility]. tr6 Diagnosis is Abdominal tenderness - iliopsoas muscle mass; Pain in left leg - swelling, lymphadenopathy, malignant. Reason for transfer: Higher level of care. Accepting physician is to hospitalist. Condition is Stable. Problem is new. Symptoms have improved. ruddy
--- NOTE | 2020-08-20 09:49 | RAD REPORT ---
EXAM DESCRIPTION: USExtremity Venous Uni Ltd08/20/2020 1:30 am CLINICAL HISTORY: left leg pain and swelling. COMPARISON: None. FINDINGS: Left common femoral, superficial femoral, popliteal and posterior tibial veins are compre ssible and demonstrate augmentation. Doppler demonstrates good flow. 10 centimeter left inguinal mass visualized containing minimal vascularity. Left inguinal lymphadenop athy. Largest lymph node measures 5 x 2 centimeters IMPRESSION: No evidence of deep venous thrombosis involving the left lower extremity. 10 centimeter left inguinal mass probably neoplasm. Lymphoma and sarcoma are 2 possibilities
--- NOTE | 2020-08-20 10:05 | RAD REPORT ---
EXAM DESCRIPTION: Claudia Single View08/20/2020 8:47 am CLINICAL HISTORY: Chest pain COMPARISON: none FINDINGS: The lungs appear clear of acute infiltrate. The heart is mildly enlarged Upper lobe vessels prominent indicative of pulmonary venous hypertension
[2020-08-20 12:50] VITALS: TEMP 98.8
[2020-08-20 12:51] VITALS: O2SAT 97
[2020-08-20 12:53] VITALS: BP 142/46
[2020-08-20] MEDS ORDERED: MORPHINE 4 MG/ML SYR ONE (12:53)
[2020-08-20] MEDS ORDERED: ONDANSETRON 4 MG/2 ML VIAL ONE (12:54)
--- NOTE | 2020-08-21 10:37 | RAD REPORT ---
EXAM DESCRIPTION: CT - Pelvis Wo Cont - 08/20/2020 5:50 am CLINICAL HISTORY: The patient is 60 years old and is Female; R/O ABSCESS INGUINAL AREA left leg swel ling. TECHNIQUE: Axial computed tomography images of the pelvis without intravenous contrast. Sagittal a nd coronal reformatted images were created and reviewed. This CT exam was performed using one or mo re of the following dose reduction techniques: automated exposure control, adjustment of the mA and /or kV according to patient size, and/or use of iterative reconstruction technique. COMPARISON: No relevant prior studies available. FINDINGS: Bowel: Unremarkable. No obstruction. No mucosal thickening. Appendix: Not visualized. No findings to suggest acute appendicitis. Intraperitoneal space: Unremarkable. No free air. No significant fluid collection. Bladder: See below. No stones. Reproductive: Hysterectomy. Bones/joints: Right total hip arthroplasty. No dislocation. Mild degenerative changes in the left hip. Degenerative facet arthropathy lower lumbar spine . No acute fracture. Soft tissues: Left iliopsoas muscle enlargement with hypodense masslike areas. Subcutaneous edema in the proximal left thigh. No soft tissue gas. Vasculature: Unremarkable. No lower abdominal aortic aneurysm. Lymph nodes: Enlarged left in inguinal and iliac chain lymph nodes, with mass effect on the blad bobby. IMPRESSION: 1. Left iliopsoas muscle enlargement with hypodense masslike areas. Soft tissue masses favored over abscess. IV contrasted CT follow-up recommended. 2. Pathologic left inguinal and iliac chain adenopathy. Mass effect on the bladder. 3. Subcutaneous edema in the proximal left thigh. No soft tissue gas. Electronically signed by: Kiersten Gutierrez MD 08/20/2020 5:28 AM CDT Due to temporary technical issues with the PACS/Fluency reporting system, reports are being signed by the in house radiologist without review as a courtesy to ensure prompt reporting. The interpreting r adiologist is fully responsible for the content of the report.
== END 2020-08-20 12:43 | disposition short-term general hospital (02) ==
LOC: ER 23:01
DX: R59.0 Localized enlarged lymph nodes (principal); M62.89 Other specified disorders of muscle; I10 Essential (primary) hypertension; W19.XXXA Unspecified fall, initial encounter; Z20.822 Contact with and (suspected) exposure to COVID-19; Z85.3 Personal history of malignant neoplasm of breast
CPT/HCPCS: 85025; 80048; 36415; 83735; 85610; 82565; 80076; 84484; 80053; 83880; 72192; 71275; 74175; 71045; 93971; U0003; Q9967; J1200; J2543; J2930; J2405; 96372; 96374; 96375; 99285

== ENCOUNTER 2020-10-12 14:40 | Emergency (ER) | payer OTHER ==
--- OUTSIDE RECORDS SUMMARY | 2020-10-12 14:49 | XMS REPORT | Continuity of Care Document ---
:1960 Author Organization [facility] t Address [address] [place] [address] Care Team Providers Name Role Phone [phone] Primary Care Physician Unavailable Nile TEJADA Attending Clinician Unavailable Mallory LYNN, Nile Attending Clinician Boom Carlin MD Attending Clinician Caridad Escalante MD Attending Clinician Isabelle Ramos MD Attending Clinician [phone] Lazaro LYNN Attending Clinician ANA PAULA TAVARES Attending Clinician Unavailable STEVE GARCIA Attending Clinician Unavailable BOOM CARLIN Admitting Clinician Unavailable NARGIS Admitting Clinician Unavailable STEVE GARCIA Admitting Clinician Unavailable Payers Payer Name Policy Type Policy Effective Date Expiration Date Sour ce Number [facility] [id number] 2020 HOMAR Ramos Lueladio - MEDICARE MGD 00:00:00 - [facility] [id number] 2020-Present Problems Condition Condition Condition Status Onset Resolution Last Treating Co mments Source Name Details Category Date Date Treatment Clinician Date Venous Venous Disease Active [facility] obstructio 6-06 [facility] - n n 00:00: Medical 00 Center Mass of Mass of Disease Active [facility] iliopsoas iliopsoas 6- [facility] - muscle muscle 00:00: Medical group group 00 Center Pyoderma Pyoderma Disease Active Overview: [facility] gangrenosu gangrenosu 11-10 Post Bret kes - m m 00:00: surgical Medical 00 Center Hip 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[facility] osteoarthr osteoarthr 10-29 [facility] kes - itis itis 00:00: Medical 00 [facility] Diabetes Diabetes Disease Active [facility] mellitus mellitus 10-29 [facility] - 00:00: Medical 00 [place] Hypertensi Hypertensi Disease Active [facility] on on 10-29 [facility] - 00:00: Medical 00 [place] Unilateral Unilateral Disease Active [facility] primary primary 10-07 [facility] - osteoarthr osteoarthr 00:00: Me dical itis, itis, 00 [facility] right hip right hip Surgical Surgical Disease Active [facility] wound wound [facility] - infection, infection, Me dical initial initial Center encounter encounter Allergies, Adverse Reactions, Alerts Allergy Allergy Status Severity Reaction(s) Onset Inactive Treating Comm ents Source Name Type Date Date Clinician Payal Edwards Active Anaphylaxis [facility] l ty to 10-06 [facility] - adverse 00:00: Medical reaction 00 Center s Family History Family Member Diagnosis Comments Start Date Stop Date Source Natural father Lung cancer [facility] Natural mother Diabetes [facility] Social History Social Habit Start Date Stop Date Quantity Comments Source Sex Assigned At [facility] Alcohol intake 2017-11-18 2017-11-18 Current drinker [facility] S [facility] - 00:00:00 00:00:00 of alcohol Medical Center (finding) Tobacco use and 2017-11-18 2017-11-18 Never used [facility] kes - exposure 00:00:00 00:00:00 Medical Center Alcohol Comment 2017-10-06 2017-10-06 SOCIALLY [facility] kes - 00:00:00 00:00:00 Medical Center Smoking Status Start Date Stop Date Source Never smoker [facility] edical [facility] Medications Ordered Filled Start Stop Current Ordering Indication Dosage Frequency Signature Comments Components Source Medication Medication Date Date Medication? Clinician (SIG) Name Name folic acid 2020- No 1mg QD Take [address] [facility] [address] (FOLVITE) 1 09-07 tablet (1 Bret kes - MG tablet 00:00: 23:59 mg total) Me dical 00 :00 by mouth Center daily for 30 days. polyethylen 2020- No 17g QD Take [address] [facility] e glycol 09-07 by mouth [facility] - (GLYCOLAX) 00:00: 23:59 daily for M edical 17 gram 00 :00 3 days. Center packet gabapentin Yes 100mg QD Take [address] (NEURONTIN) 6-23 mg by [facility] - 100 MG 17:17: mouth Medical capsule 44 daily. Center famotidine 2020- No 20mg Take [address] [facility] [address] (PEPCID) 20 09-06 tablet (20 L ukes - MG tablet 00:00: 23:59 mg total) Me dical 00 :00 by mouth Center every 12 (twelve) hours for 30 days. morphine 2020- No 30mg Take [address] [facility] [address] (MS CONTIN) 09-06 tablet (30 L ukes - 30 MG 12 hr 00:00: 23:59 mg total) Medical tablet 00 :00 by mouth Center every 12 (twelve) hours for 30 days. Max Daily Amount: 60 mg enoxaparin 2020- No 150mg Inject [address] (LOVENOX) 09-06 mL (150 mg Vicky es - 150 mg/mL 00:00: 23:59 total) Medic al injection 00 :00 subcutaneo Cent er usly every 12 (twelve) hours for 30 days. cyclobenzap 2020- No 10mg Take [address] [facility] [address] rine 09-06- tablet (10 [facility] - (FLEXERIL) 00:00: 23:59 mg total) M edical 10 MG 00 :00 by mouth 3 Center tablet (three) times daily as needed for Muscle spasms for up to 10 days. HYDROmorpho 2020- No 2mg Take [address] [facility] ne 09-06- tablet (2 [facility] - (DILAUDID) 00:00: 23:59 mg total) M edical 2 MG tablet 00 :00 by mouth Cent er every 4 (four) hours as needed for up to 10 days. Max Daily Amount: 12 mg enoxaparin 2020- No 140mg Inject [facility] (LOVENOX) 09-06 0.93 mLs [facility] - 150 mg/mL 00:00: 00:00 (140 mg Medi perla injection 00 :00 total) Center subcutaneo usly every 12 (twelve) hours for 30 days. apixaban No 5mg Q.5D Take [address] (ELIQUIS) 5 09-01 tablet (5 Bret kes - mg Tab 00:00: 00:00 mg total) Medic al tablet 00 :00 by mouth 2 Center (two) times daily for 90 days. apixaban No 10mg Q.5D Take [address] (ELIQUIS) 5 -01 20- tablets Luke s - mg Tab 00:00: 00:00 (10 mg Medical tablet 00 :00 total) by Center mouth 2 (two) times daily for 7 days. oxyCODONE-a No 1{tbl} Take [address] cetaminophe 08-25 tablet by Bret kes - n 00:00: 00:00 mouth Medical (PERCOCET) 00 :00 every 6 Center 10-325 mg (six) per tablet hours as needed for Pain for up to 10 days. Max Daily Amount: 4 tablets sodium Yes 1g Inject 1 g [facility] t chloride 12-05 intravenou [facility] - 0.9% (NS) 00:00: sly every Med ical PF Soln 20 00 8 (eight) Cent er mL with hours. meropenem 1 gram SolR 1 g apixaban No 5mg Q.5D Take [address] (ELIQUIS) 5 12-05- tablet (5 Bret kes - mg Tab 00:00: 00:00 mg total) Medic al tablet 00 :00 by mouth 2 Center (two) times daily. Vital Signs Vital Name Observation Time Observation Value Comments Source Systolic blood 2020-09-06 16:21:00 161 mm[Hg] [facility] Diastolic blood 2020-09-06 16:21:00 75 mm[Hg] [facility] Heart rate 2020-09-06 16:21:00 87 /min [facility] Body temperature 2020-09-06 16:21:00 35.78 Lovely [facility] Respiratory rate 2020-09-06 16:21:00 18 /min [facility] Oxygen saturation in 2020-09-06 16:21:00 97 /min [facility] Arterial blood by Medical Ce nter Pulse oximetry Body weight 2020-09-06 06:00:00 141.658 kg [facility] BMI 2020-09-06 06:00:00 50.41 kg/m2 [facility] Body height 2020-08-20 18:00:00 167.6 cm [facility] Procedures Procedure Date / Time Performed Performing Clinician [facility] CHEST WITH IV CONTRAST 2020-09-05 12:35:00 Vandana Tejada [facility] COMPREHENSIVE METABOLIC 2020-09-05 05:16:00 Vandana Tejada [facility] 2D ECHO W/ DOPPLER 2020-09-05 01:05:[address] [facility] (CW/PW/COLOR) [facility] SARS-COV2/RT-PCR ([facility] & 2020-09-03 21:48:[address] [facility] - REF LABS) [facility] CBC W/PLT COUNT & AUTO 2020-09-03 06:17:[address] [facility] CBC (HEMOGRAM ONLY) 2020-09-02 04:36:00 Hari Carlin [facility] PROTHROMBIN TIME/INR 2020-09-02 04:36[facility]00 [facility] 2020-09-01 03:48:00 Raegan [facility] PROTHROMBIN TIME/INR 2020-09-01 03:48:00 [facility] US CORE BIOPSY 2020-08-31 18:48:00 Vandana Tejada [facility] TISSUE EXAM 2020-08-31 18:37:00 Vandana Tejada [facility] VITAMIN B12 AND FOLATE 2020-08-31 04:45:00 Vandana Tejada [facility] CBC (HEMOGRAM ONLY) 2020-08-31 04:45:00 Raegan [facility] PROTHROMBIN TIME/INR 2020-08-31 04:45:[address] [facility] [address] [facility]EN/PELVIS WITH IV 2020-08-30 10:28:00 [facility] CT/CTA AAA AND RUNOFF 2020-08-30 10:28:00 [facility] BUN AND CREATININE 2020-08-30 05:17:00 Mary [facility] CBC (HEMOGRAM ONLY) 2020-08-30 05:17:00 Raegan [facility] PROTHROMBIN TIME/INR 2020-08-30 05:17:00 [facility] HC ARTERIAL DOPPLER LEG 2020-08-29 16:05:00 [facility] CBC (HEMOGRAM ONLY) 2020-08-29 12:50:00 [facility] HEPARIN ASSAY - LOW 2020-08-29 12:50:00 [facility] MOLEC[facility] WE[facility] CBC (HEMOGRAM ONLY) 2020-08-29 05:03:00 [facility] PROT[facility]/INR 2020-08-29 05:03:00 [facility] BUN AND CREATININE 2020-08-28 16:37:00 [facility], [facility] - W/RATIO [facility] VENOUS DOPPLER LEG, LEFT 2020-08-28 12:43:[address] [facility] CBC (HEMOGRAM ONLY) 2020-08-28 04:42:00 Hari Carlin [facility] PROTHROMBIN TIME/INR 2020-08-28 04:42:00 [facility] SARS-COV2/RT-PCR ([facility] & 2020-08-27 18:10:[address] [facility] LABS) [facility] PROTHROMBIN TIME/INR 2020-08-27 12:22:00 [facility] CBC (HEMOGRAM ONLY) 2020-08-27 04:06:00 RaeganHari [facility] PROTHROMBIN TIME/INR 2020-08-26 11:47:00 [facility] ([facility] ONLY[facility] 2020-08-26 11:47:00 [facility] CBC (HEMOGRAM ONLY) 2020-08-26 06:00:00 RaeganHari [facility] PROTHROMBIN TIME/INR 2020-08-25 18:11:00 Sun Kinga [facility] CBC W/PLT COUNT & AUTO 2020-08-25 14:27:00 [facility] CBC (HEMOGRAM ONLY) 2020-08-25 06:58:00 Hari Carlin [facility] APTT 2020-08-25 06:49:00 [facility] AP[facility] 2020-08-24 22:45:00 [facility] APTT 2020-08-24 12:42:00 [facility] BASIC METABOLIC PANEL (7) 2020-08-24 05:41:00 Tom Escalante i [facility] CBC (HEMOGRAM ONLY) 2020-08-24 05:41:00 RaeganHari [facility] APTT 2020-08-24 05:41:00 GadichHumberto [facility] 2020-08-23 21:14:00 [facility] CBC (HEMOGRAM ONLY) 2020-08-23 14:11:00 [facility] 2020-08-23 14:11:00 Ravinderaspirus [facility] hospit[facility] VENOUS DOPPLER LEG, LEFT 2020-08-23 12:46:[address] [facility] BASIC METABOLIC PANEL (7) 2020-08-23 04:08:00 Boris [facility] CBC (HEMOGRAM ONLY) 2020-08-23 04:08:00 Hari Carlin [facility] BASIC METABOLIC PANEL (7) 2020-08-22 05:37:[address] [facility] CBC (HEMOGRAM ONLY) 2020-08-22 05:37:00 Hari Carlin [facility] US EXTREMITY NON-VASCULAR 2020-08-21 14:30:00 Hari Carlin [facility] CBC (HEMOGRAM ONLY) 2020-08-21 05:50:00 Hari Carlin [facility] COMPREHENSIVE METABOLIC 2020-08-21 05:50:00 Hari Carlin [facility] PROTHROMBIN TIME/INR 2020-08-21 05:50:00 Perla Carlineb Nur [facility] XR HIP 2 VIEWS LEFT 2020-08-20 18:25:00 Perla Carlineb Nur [facility] XR LUMBAR SPINE 2 OR 3 2020-08-20 18:20:00 Hari Carlin [facility] XR KNEE 3 VIEWS LEFT 2020-08-20 18:14:00 Perla Carlineb Nur [facility] CBC W/PLT COUNT & AUTO 2020-08-20 15:02:00 Hari Carlin [facility] DIFFERENTIAL [facility] Center COMPREHENSIVE METABOLIC 2020-08-20 15:02:00 Hari Carlin [facility] - PANEL Medical Center MAGNESIUM 2020-08-20 15:02:00 RaeganHari perea [facility] Medical Center PHOSPHORUS 2020-08-20 15:02:00 RaeganHari perea [facility] Center LACTATE DEHYDROGENASE 2020-08-20 15:02:[address] [facility] - (LDH[facility] Center URIC ACID 2020-08-20 15:02:00 [facility] Center Plan of Care Planned Activity Planned Date Details Comments Source Future Scheduled 2020-11-15 INFLUENZA VACCINE (#1) [facility] - Test 00:00:00 [code = INFLUENZA Medical Ce nter VACCINE (#1)] Future Scheduled 2020-03-[address] [facility] - Test 00:00:00 (12+) [code = Medical Center DEPRESSION SCREENING (12+)] Future Scheduled 2020-02-15 Medicare IPPE (WELCOME [facility] - Test 00:00:00 TO MEDICARE) [code = Medical Center Medicare IPPE (WELCOME TO MEDICARE)] Future Scheduled 2018-11-[address] [facility]icky es - Test 00:00:00 malignant neoplasm of Medica l Center colon (procedure) [code = 343443616] Future Scheduled 2017-10-[address] Bret kes - Test 00:00:00 [facility] Center (procedure) [code = 98409738] Future Scheduled 2010 SHINGLES VACCINES ([address] [facility] - Test 00:00:00 of 2) [code = SHINGLES Medic al Center VACCINES (1 of 2)] Future Scheduled [address] [facility] - Test 00:00:00 (procedure) [code = Medical Center 91849291] Future Scheduled [address] [facility]icky [facility] - Test 00:00:00 malignant neoplasm of Medica l Center cervix (procedure) [code = 754335830] Future Scheduled 1979 DTAP/TDAP/TD VACCINES [facility] - Test 00:00:00 (1 - Tdap) [code = Medical C enter DTAP/TDAP/TD VACCINES (1 - Tdap)] Future Scheduled 1972 COVID-19 VACCINE (1) [facility] - Test 00:00:00 [code = COVID-[address] VACCINE (1)] Future Scheduled [address] DIABETIC EYE EXAM [facility] - Test 00:00:00 [code = DIABETIC EYE Medical Center EXAM] Future Scheduled [address] [facility]icky [facility] - Test 00:00:00 examination Medical Center (regime/therapy) [code = 193943694] Future Scheduled 1970 Urine screening for [facility] - Test 00:00:00 protein (procedure) Medical Center [code = 666816599] Future Scheduled [address] [facility] - Test 00:00:00 0-64 YRS (1 of 1 - Medical C enter PPSV23) [code = PNEUMOCOCCAL VACCINE 0-64 YRS (1 of 1 - PPSV23)] Future Scheduled [address] [facility]icky es - Test 00:00:00 malignant neoplasm of Medica l Center breast (procedure) [code = 541263307] Results Test Description Test Time Test Comments Results Result Comments Source Tissue Exam 2020-09-14 10:56:00 Test Item Value Reference Range Interpretation Comme nts Case Report (test code = 104) Surgical Pathology Report Case: [id number] Authorizing Provider: Vandana Tejada MD Collected: 08/31/2020 06:37 PM Ordering Location: [address] Received: 09/01/2020 08:13 AM Service Pathologist: Thien Radford MD Specimen: Groin, Left, left iliopsoas mass biopsy ADDENDUM (test code = 3381) c5xexBNrTAMwjIM1VbCfRQAvo5ynh6HgxWEdlEH mOTrwfYBjapBbbo55oGW3gU62MT8rGPCmJbK6OY QxrdM9Pig4GCSpBOAsgPWpH720c8dlg0sqbhCzh MB8hIokIXBoDEAmMBbtDBNlDuDeFU2rmB7laIkq oI9gaUNiyKNiyYKtsOFrjVKnJRErsxRzdy0jXFH wqxWqoF9sxhFHQTWuXH2scyZ2boT2TGP7iRZucs GegRxjh6AoTmRaIYfiuyR7xhMhFOHxr3OjxZw5V MMrz7NrR3CcFY4xBLssrNDxlvBmxvToINVwhrDq Sn4uPTvirsK0xQ4zGYFzCNSxMCHzq87rnxpfVB7 CEQIfiC1lmKlxiISoR9wzGQZqfFjbJXxCLVFoHB BPIVP9DTGksuHuP6GESDWmHQAtw6pyToGmBZAtg eKfyT8qZArkGgbzO1yvFgbvrQLzxgIovHIrpQBp NJQbqtstrbshVqJeaOEkLWX0bcU9QOYcHHjgAEL aoFRfCFZaOAJtJL8mhZOioUaiIPOfjDtpEBWzSB OrtiEtBICam82zuVPrfAQkmDw5r6azXNEnOWZ2n sSyQOVwIRKhZBHrAJBoaFAkWX6cFFSoIWBfowTj iOQhJrAMuFZiYCFyhvJsoo6bbeHfZSoerTOtsbM suYVwtXVwkTa7i7CzRxPdmDw0wwNtETPfHPIver BpLPwyg7A5IXRztAtiukRezJAhQL7rSWSlNAZjF hSvTBLat5Hcda6hoJNwCHItidYXdeRzIPkvCZI6 dSIgseV6cBUjVS0vZAExYOPnPFHhf35uoOQkwW3 eOKUwpg5wbyR3TSOek7uqrpYkNPitFWHypp9gRB TnkH6lEmPfxJIurGufGA24ZprlFGPplQOzNRCiy BTyL0PpRCO2uIdkNSLfQHHnQfJtrvVlYGJuOJ1K ILGwVFHzs08cWSNgajGhf96zgWf1IRIug90qLHH oPPXzPUDpMGAvMYQoyR3bnOY1kEvcLZAbvWzwwj 1wxOHvVZZzczCTeuYlAIFsmCEzfJ8wdyLqjVJbN MUqMKi1VHEpPlGRcP6qXNEvTF2aL0znQOtlnzse YXJ9 DIAGNOSIS (test code = 3220) u5jpqJGmKMUdx7dsJNRpmECsEbQqGxTzJqEvOv p cdWMxIHtccnRmMVxlcGljOTIwMlxhbnNpXHNwbH MaE3TcqaabEUdpXK8eMJ1yoGpmgCAqnQSjJFNzT bOzt5uyp658xVIke5byYOFAmrscnKy9jOjdG98t w2G0SufjJ30ddRTiDRhiiZDfjppxetMgQIQZObJ lFCJXJMSZVCsPAY4ZC84GXvINZRYGDEKNWT0LP2 k0OTWwveUKQPaORUzPXDWBOIafEbIIVAaQF35oO SOcbjPXWO7ONXATAiIVZeSFHHNCTTwEYnDHIE5X PX9DVXsIAVDNR7YHVY2ZPQwNZH5GDmnzAECcKYR JWG3LGI6eAfWFW3ZUZFEOVFEWWKjACx8fKAMrsj 40EJE2OkBdn4V5VXU4PSSeDGLnp7ejBQUwnLRoM wErZoRmDeJtZvpdrJJfLTTjEwXyr0nyy646wQJu y4pjCRHkBaX7qKTrCPVesFYuI605HVClITysr8c px2WtMSQiwOKhw8Y6GLZLguowpCp5bLhaU00oa7 I1BqwwT6ywSWMfRDUyK8YiRP5gUPXdSzl0IMS7W RF4IRCgNMPhN7CcSR3yZGSreCIeRZm3m7yizUte UDQgFUO2i5dcUHosnqGuAP1zpf3umVh8m8zerkT lNSZdPMJbyAIDXDOeE2EmuXviEw1qiFd3uIvhFl xvCPQ6Ldo1SQ3lag76vea4qYgsLLMtjwltNwZ2O DnlAMEtvqpjLEz4QZgfYEErpYQ9YZTfxLZqA1Sb ZWLtJL6zqfe1YVE1TNgcZNYsSzF4JYPteIRzPVH enEgpXLjum133ZNG9TjPpDN6sC3Bcw8R3aY5bhC TpVWEnxNOpNnGxACLnss0rnJHgQHzup2KvSZX0v jC8zMGxeEOgMYMqSwE1PKopLA8adk53VQCkNRL1 jl1zyREreUtdfpBbxGLeXAiqE7MtULTgd643IIM aE9XzBRQqd2D4bsBtZpGsHMScfOF2ijX4SKVcBD 8yoktgh3sgERhhGEwdUDUvgpG7guC5YTAvtFNqY 1ZzoM6qFDOrQY2dzmruq4ikALT9LYkaGTXgVAG6 LrQlCGUjg3Phyts9EjSdx6LqbXXxEPylM42rf76 6RZUxauFbW2ovlDQknvrmyAQcrixbKEawgpE2FL XcGFtkhlnyTTXjRRocJ1uxIuWbUNAndJrhAZnyn 3GhITSdRBEhDmAqbBFkNOBuJls7FLDteXPpILOa CmLnL3gbpcgpFwDTOCFyf8hoO6oxxFBUoHXiY1D zELewoqMeCKhnLHswPLFjCPL7SE33EUofJSHgsv 19 CPT Code(s) (test code = 3357) v0apnGYfEWHbuZU6FnGpYAKit3gxq7LmqZWw cGF lEYabvGPxvwSqyr59mAJ6tI34HS6iQIUiXsT1KH IzvfJ2Osc8EJMfIOZhlPTnR094n3usw0wxhsFcu HP9uFphXJXtCLNnYCsyOJIjFrRaFKvwIXAiNEc7 LiRdRIE9XTW6BKt4GXMutc6= CLINICAL HISTORY (test code = 3356) a7vnrUNiZQZpuKZ3QqCwIBKeo2wiq5L sdHBncGF gAOwfiQZjzcHslf43vAR7kS15KF0hMVIvYlG8BR GbajN9Lwo1XSWpCFRuaVQgV204e9iiz6vqtqKyx IT5zSyqVQOjZHToEMvdBYElSaPkAZYrxRVlpi6y qyRprIJ2L8zrfW9gf97zmhQxTJVxLLX6TrVjbGD 2KkQipUMaOELiFUagUSH0 SPECIMEN SOURCE (test code = 3377) i3ufeZYnWKAhqPH6QlDiWZHjo4icu3Sn dHBncGF uLXgoiCTbzuUpxj12uTG1yS05ZJ8pBWOyXxK1VK TwxjE3Xsi9OEKvMMMzpUGvP147o2ihe6sdirDel OR2gUqdHBYqFSEfKTxiVQLlOnYwWWUdhLYmgd9o uf3xkAqtzQAhJJKzhEDgvI== GROSS DESCRIPTION (test code = 3366) j1uqsNIbKKJqwZCaXdIuXITkSBBgw1 lcZGVmbGF uLpQeJiWaTaHgZcrzxHTmVEZoFlGiy8zur262xN Ywu2vkLEKQruayzUp1o0omCBXfSzM9sXIcDKpwJ 2ihmxZtsIJrITTrUTc5wT94FOQvgI2roTLpXByu rpMcBzX4KVmxIMUzHrD4POQcnVXkIFUjB6hvRUY uZDsuPUBrPPzicGSeBSO4aCsvo9T8jTAqdHXhiB buIjKsRwBiHPVYs1ApGLd5tPesX9WiIFTwSgQ4m YNmIANhQZegOYDzSBBcwdX7iI41FIrtpaE4bKNs e9Fzv44vm418wS7qwIVsCZL1DNKoBYOmsXWcKPM fWQX1LZEmsUBcD3g6CyZlvNEgC6U3JxNyqOPhH1 S2UnMncOSvY5S5RmSgxIGwEAVsrBHkPm5azNEum RNxuu3rnx03JIP4j0NiaBufOTK5ALQ3SsWeVe1l vLPsZINlZVXedKBvBNSiCW6pdDSlUVQnwZ5nrpe mGIApXcBtvxwqJBGncTlotiDmQo3jgAvoUPX7KY ygO3ijpF6sLtB5JRbtC9qmdC7jBKl0TRyojXS2H DEvxR1bEO7buwbhi2maXhMpHQ8qcrvro2iiUmPm IK8fxnd6l4nnKtPhIZ4imwaow6lrJkJmAUkdLFC srvdsNDNkb0SmwrtgXKJmp8GtF5RleCygF17bxN tpG63wZNJdvRghpY8ljMqycY4gApGkCcVtMLveK XJkXHBsYWluXGYxXGZzMjBcbGFuZzEwMzNcaGlj iGhnZZmhMxJpYEFkCBpcD2jpLbZjBkTlSMLQJxG TUZOmkKDtFOFsuqWqj1YzQAffvzUjPXDstTFnIB ibaRruwYfeCPEakKzxerCgK1B9gdTgWX7rQVCpI QJxJ8DqRNJoX51cRYNhmP3cUBEmGS0oEOLhlf9z ehzogCGldJJrQB7mMVEzhiPbp2QtBJ9fIE21vQY cjSmcYUcoENjzh8cdkMPsk82amYX7vLQcxZDrL1 8bHABokaLdL4bcLbWgIxQrWN7bGQAyACbrNDosd fd2mHAhoBSdkQW8KXEmgH1ilU05ofCvgyGGEL6a mThiMTgcrW6nMJQsCOdvFSXbV7YaeC2fTD8WLxd qENOzJYHCS7YxC85drILacA== MICROSCOPIC DESCRIPTION (test code = r0posZHcMQRrlIF4HvYwTLGcn9lti2 BsdHBncGF 3371) sNWbqaRIlqcGzti78iDY2pW63GS5nDKBwRbU9HY ByzwM6Aly1RDUlQYWjbNVsV822w8tty2mzhwOvm PP7bAijFNFjLVFmCJpvHVNuSeVuQFVDAo8MLIJK XHBhcn0= SPECIAL STUDIES (test code = 3376) m0jpyZKpCDRjbME7FbFtTYBnm9nkb3Bp dHBncGF kHXdjgMAznmFids45lWI2hB81VO4xOVUqPtG2ER BtzrF5Sqf8GMKlJWIlbDJhT863ECOgPPDjgQcut ic6cK49WMEgdY6mvJDiHYd2JIGaivGwsFkqsA3f PdWtSwQzXtCKxYXbmJ72SUDinbJ6BZQia11gj1G vtWyarfXbMEJvKBeyA8g8OGMwYMZtQYI0x2Dto7 OqbS4zpD1euYmyuG8wcUNwfWO7qboeb0Cvd7SjC 4esrQFyoYGsqyOoSAIbwuYUWF9QSzAYPA5jZ7YC IAWTUyypHvMrUCplPPIZKHwNBZGWGUC4MNRUXHR zIEZELJnaVXHwS27uiBNqpSIYaRvdZDUdHJaalD shPDV3IMATfv0po6YvQMNnwu61mzFqg9BclBs2T HKkv435yt7nkmT7AWCpVFR5LIe4FSZrKOPniA0g SjP0dQZsBUPnVBL3SBS2PCCjb4Q4FR5rBLIsWAW iASCrhpKgg8lmg2ywGDCjWQD7rxVytJ0pQ8NuBA Wdm2OxrLrwZDVkiCvzcgQvBZVkcIDeGLTdsS87C JDhqNQbhHVtBXShTIK4EBquxM4sZvKRcwGmpx3c sCAug8YzdVr3PQBplzFqfcCjZHHapzSxR95ebAA gjPLgo4wqbnYfrbSohPLikDDjZCPpPTQ0VNi5IU JoMDxyRHHdZTeuXVAoIU6ofW5giGhvvF5seEDvv YD6smwqpPDyfB5dT2FkBNYjj8Aezmxbu9IwUOTc doUiyo3iAIUbeRQWPKaae2LuE9HbTWq1h3CdyNv vGLrnNKu7HxYlJQTbdUGblJQMIU01KMBuXBSmoG oyrP1ycGRFXHTqpiL8l0S6LRpsYNVmHPr1LOuus gHrCOJtcM6lDHPtMP0sMPh8grHbZFFzk2PmSK9o RCPipGUmLTE8ARAlr2OdG9Oyg1UsTXRtMZAbtk8 mpdXwIoDIuCWnDICezc51QHMtZU4lB9unTGAjQP JorrFcmVApo5IrRACdeTS4xQXxYY8ETmBEo67vT GRyOTGSomCiVEOcbDndnHT5wwU6hJ7aQvFJxWBb WwPSPAjassKaCCUmvb2fhwLlJGKwVKVgl5OryUR gwBMhimOeQ7Reb0YfIBSdne61EWftmHDhzg31UY 2sK3Xpa1QggJ6bCQhqLWBin9TujIKjtIMwJMCni 3RbM6tjaaevTYujlPUidI2yPLElCJm0PSYfq3Xj JJWuo8ZeCyWcsiUlXJIwEBQdXQVzuY21QHG9wLe iyMykdoYkVI0eAWHfbjJeHVEhMWPhcX3rQYpclp IoKYAomjN6f2X7ODhgYKUzspWcEjwdOZR8moMdr lZ2fLOwG6gvwoxhBTzsIPDlv2DwvU1siNZOwPFo t1PbwHLocYFVqSWsMD6dwoQvZW8zJYL3NUakQPV GWQVzPIppFTQoAFE1KVmaAwusMLC0wlTpUKTls1 TcCGihZ8irC41quPnafIc6lPCdrYjaxPPdmTXsJ CLonuO4z4E6UPVwn1CxqwldVNEkgi8= Gross assessment was performed at (test [facility] enter, code = 2777) Department of Pathology, [address] [place] [address], Technical component was performed at [facility] er, (test code = 2778) Department of Pathology, [address] [place] [address], Professional component was performed at [facility] enter, (test code = 2779) Department of Pathology, [address] [place] [address], [facility] Center[facility] [id number] 10:56:00Surgical Pathology Report Case: [id number] Authorizing Provider: Vandana Tejada MD Collected: 08/31/2020 06:37 PM Ordering Location: [address] Received: 09/01/2020 08:13 AM Service Pathologist: Thien Radford MD Specimen: Groin, Left, left iliopsoas mass biopsy Immunohistochemical studies performed on block A1 demonstrate the neoplastic cells to be positive for CD34. They are negative for keratin, S100, desmin, JOAQUÍN, smooth muscle actin (SMA), MUC4, and STAT6. Proliferative index by Ki-67 is variable, ranging from 20 to 60%. The neoplastic cells present demonstrate myxoid features and have some enlarged nuclei. There are no readily available mitotic figures present, however there is an area of necrosis.Overall, the nature of the lesion is indeterminate however is favored to be malignant.This case will be referred to MD Pinzon for consultation. An addendum report will follow.Intradepartmental review: Dr. 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 Signing Pathologist Direct PhoneLine: [phone] signed by Thien Radford MD on 09/01/2020 at 3:59 [id number], [id number] groin cyst/iliopsoas mass, 6.3 x 6.1 x 2 cm Left groin/iliopsoasA. Received in formalin labeled with the patient's name, medical record number and "groin, left" and consists of multiple nur-white soft tissue cores ranging 0.2-1.2 cm in length submitted in toto in A1.MARCOS Cuba PA (ASCP)cmPERFORMEDThe interpretation of this case included the use of immunohistochemistry or special stains.BLOCK A1- KERATIN, S100, DESMIN, CD34, JOAQUÍN, SMAControl Slides Examined: In-house known positive controls were evaluated along with the test tissue. These control slides run alongside ofthe patients sample show appropriate staining. Internal positive and negative controls when available are evaluated Immunohistochemistry technical testing was performed at [facility], Pathology Laboratory where it was developed and its performance characteristics were determined.It has not been cleared or approved by the U.S. Food and Drug Administration. The FDA has determinedthat such clearance or approval is not necessary. The test is used for clinical purposes. It should not be regarded as investigational or for research. This laboratory is certified under the Clinical Laboratory Improvement Amendments of 1988 (CLIA-88) as qualified to perform high complexity clinical la boratory testing.[facility], Department of Pathology, [address] [place] [address], [facility], Department of Pathology, [address] [place] [address], [facility], Department of Pathology, [address] [place] [address], CW, CHEST, WITH CONTRAST 2020-09-05 14:16:00Unlisted Reason for Exam - Click Yes and Enter Reason Below- >YesUnlisted Reason for Exam->spindle cell neoplasm, need CT chest to complete staging[facility]ALLEDANIEL MEYERS NEELAM : 1960 Sex: FFINAL REPORT CT of the Chest dated 09/05/2020 CLINICAL INFORMATION: U nlisted Reason for Examspindle cell neoplasm, need CT chest to complete staging Comment: Axial images of the chest were obtained from thoracic inlet to the upper abdomen with intravenous intravenous contrast. This exam was performed according to our departmental dose-optimization program, which includes automated exposure control, adjustment of the mA and/or kV according to patient size and/or use of interactive reconstruction technique. Patient is status post bilateral mastectomy. A right breast implant is seen. Heart is normal in size. Great vessels are unremarkable. No adenopathy in the mediastinum or perihilar region. Trachea and mainstem bronchi are patent. Subsegmental atelectasis is seenin the right mid lobe but. The rest of the lungs are clear. No nodular, mass lesion or airspace disease is noted. No interstitial disease or bronchiectasis is present. No pleural effusion or pleural based mass is seen. Visualized upper abdomen demonstrates no focal lesion. Impression: Right mid lobesubsegmental atelectasis. Signed: Brie Smithort Verified Date/Time: 09/05/2020 14:16:01 Reading Location: [facility] C013Y CT Body Reading Room Electronically signed by: BRIE SMITH M.D. 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 This exam was performed according to our departmental dose-optimization program, which includes automated exposure control, adjustment of the mA and/or kV according to patient size and/or use of interactive reconstruction technique. Patient is status post bilateral mastectomy. A right breast implant is seen. Heart is normal in size. Great vessels are unremarkable. No adenopathy in the mediastinum or perihilar region. Trachea and mainstem bronchi are patent. Subsegmental atelectasis is seen in the right mid lobe but. The rest of the lungs are clear. No nodular, mass lesion or airspace disease is noted. No interstitial disease or bronchiectasis is present. No pleural effusion or pleural based mass is seen. Visualized upper abdomen demonstrates no focal lesion. Impression: Right mid lobe subsegmental atelectasis. Signed: Brie Smith Verified Date/Time: 09/05/2020 14:16:01 Reading Location: [facility] C013Y CT Body Reading Room [facility]2D Echo W/Doppler(CW/PW/Color) 2020-09-05 09:47:35 Test Item Value Reference Range Interpretation Comments Ejection Fraction Est EF is 55-60% (test code = 2574) PXN (test code = Interface, External Ris In PXN) - 09/05/2020 9:47 AM CDTTransthoracic Echocardiography Report (TTE) Demographics Patient Name DEL VALLE, DANIEL Date of Study 09/05/2020 NEELAM Gender Female Visit Number [id number] Race Unknown Room Number 2146 Number Date of 1960 Referring Physician Vandana Tejada MD Age 60 year(s) [employer] MARTA Be Interpreting Eduardo Roberts MD Fellow DESIREE Xavier Procedure Type of Study TTE procedure:2DECHO W DOPPLER(CW/PW/COLOR) (Routine) Indications:Pre-chemothera py.Clinical HistoryASTHMA BREAST CA DM HTN OBESITY HLDHGB 8.7HCT 31.1 %Contrast Medium: Definity. Amount - 6 mlHeight: 66 inches Weight: 139.71 kg (308 lbs) BSA: 2.4 m^2 BMI: 49.71 kg/m^2HR: 88 bpm BP: 129/69 mmHg Summary Normal left ventricular chamber size. Normal wall thickness. Normal overall left ventricular systolic function. No apparent segmental wall motion abnormalities. Estimated LVEF is 55-60%. Grade 1 diastolic dysfunction (impaired relaxation and low-normal LA pressure). LV endocardium is adequately visualized with IV ultrasound enhancing agent. TV structure is normal. Estimated peak systolic PA pressure is 30-35 mmHg (normal range) . The estimated RA pressure by IVC dynamics 0-5mmHg . The inferior vena cava size is normal . Signature Findings Rhythm/BP Regular sinus rhythm during the exam. Left Ventricle Normal left ventricular chamber size. Normal wall thickness. Normal overall left ventricular systolic function. No apparent segmental wall motion abnormalities. Estimated LVEF is 55-60%. Grade 1 diastolic dysfunction (impaired relaxation and low-normal LA pressure). LV endocardium is adequately visualized with IV ultrasound enhancing agent. Left Atrium LA size is normal . Right Ventricle The right ventricular chamber size and systolic function are within normal limits. Right Atrium RA size is normal. Aortic Valve Mild aortic annular and leaflet calcification. There is no aortic stenosis. There is no aortic regurgitation. Mitral Valve Normal MV structure. Trace mitral regurgitation. Tricuspid Valve TV structure is normal. Estimated peak systolic PA pressure is 30-35 mmHg (normal range) . Pulmonic Valve Normal PV structure and function by limited views and Doppler. Aorta Aortic root size (SInus of Valsalva diameter) is normal . Proximal ascending aorta size is normal . Pericardium A trivial pericardial effusion is present . IVC/SVC/PA/PV/Pleural The estimated RA pressure by IVC dynamics 0-5mmHg . The inferior vena cava size is normal . Chambers/Structures Left Atrium LA Volume: 76.86 ml LA Area: 23.66 cm^2 LA Vol. Index: 32 ml/m^2 Left Ventricle LVIDd: 4.71 cm LVEDV:102.96 ml LV Septum Diastolic: 0.88 cm LV PW Diastolic: 0.64 cm LVEDV Bernard's:120.15 ml LVESV Bernard's:72.68 ml LVEF Bernard's: 60 % LVEDVI: 50 ml/m^2 LVESVI: 30 ml/m^2 LVOT Diameter: 1.97 cm Right Atrium RA Vol. (Sngl Plane): 31.96 ml Right Ventricle RV Diast Dim.: 3.52 cm TAPSE: 2.03 cm RVOT VTI: 12.75 cm Aorta Ascending Aorta: 3.27 cm Doppler/Quantitative Measurements Mitral Valve MV Peak E-Wave: 0.71 m/s MV Peak A-Wave: 0.81 m/s E/A Ratio: 0.88 Peak Gradient: 2.03 mmHg Deceleration Time: 212.3 msec MV Michael. Peak: Tissue Doppler E' Septal Velocity: 0.11 m/s E/E': 5.3 E' Lateral Velocity: 0.13 m/s Aortic Valve Peak Velocity: 1.4 m/s Mean Velocity: 0.97 m/s Peak Gradient: 7.78 mmHg Mean Gradient: 4.29 mmHg AV Area (continuity): 2.48 cm^2 AV VTI: 25.97 cm AV DVI: 0.81 LVOT Peak Velocity: 1.08 m/s Peak Gradient: 4.66 mmHg Mean Velocity: 0.7 m/s Mean Gradient: 2.29 mmHg LVOT Diameter: 1.97 cm LVOT VTI: 21.16 cm LVOT Area: 3.05 cm^2 LVOT SV:64.46 ml LVOT CO: 5.67 l/min LVOT CI: 2.36 l/min/m^2 Tricuspid Valve TR Velocity: 2.81 m/s TR Gradient: 31.62 mmHg [facility] CenterComprehensive metabolic [id number] 07:34:00 Test Item Value Reference Range Interpretation Comments Protein, Total (test 7.5 See_Comment [Autom ated code = 2885-2) message] The system which generated this result transmit yumiko reference range : 6.0 - 8.3 gm/dL . The reference range was not u sed to interpret th is result as normal/abnormal . Albumin (test code = 3.6 g/dL 3.5-5 92895-4) Alkaline Phosphatase 106 U/L 40-150 (test code = 6768-6) Total Bilirubin (test 0.2 mg/dL 0.2-1.2 code = 1974-2) Sodium (test code = 139 meq/L 554-156 9946-2) Potassium (test code 4.7 meq/L 3.5-5.1 = 2823-3) Chloride (test code = 104 meq/L 98-107 5-0) CO2 (test code = 25 meq/L -2027-9) BUN (test code = 10 mg/dL - 3094-0) Creatinine (test code 0.70 mg/dL 0.57-1.25 = 2160-0) Glucose (test code = 159 mg/dL 70-105 H 2345-7) Calcium (test code = 8.8 mg/dL 8.4-10.2 99677-6) AST (test code = 9 U/L 5-34 1920-8) ALT (test code = 13 U/L 6-55 1742-6) EGFR (test code = 103 mL/min/1.73 [place] [address]-8) NOT ACCURATE CREATININE CLEARANCE IN PREDICTING GLOMERULAR FILTRATION RATE . ESTIMATED GFR I S NOT APPLICABLE FOR DIALYSIS PATIEN TS. JESSICA (test code = JESSICA) [address] Freight ID - BALA M Lab Interpretation Abnormal (test code = 88818-3) [facility] CenterCOMPREHENSIVE METABOLIC [id number] 07:34:00 Test Item Value Reference Range Interpretation Comments TOTAL PROTEIN 7.5 gm/dL 6.0-8.3 (BEAKER) (test code = 770) ALBUMIN (BEAKER) 3.6 g/dL 3.5-5.0 (test code = 1145) ALKALINE PHOSPHATASE 106 U/L 40-150 (BEAKER) (test code = 346) BILIRUBIN TOTAL 0.2 mg/dL 0.2-1.2 (BEAKER) (test code = 377) SODIUM (BEAKER) (test 139 meq/L 136-145 code = 381) POTASSIUM (BEAKER) 4.7 meq/L 3.5-5.1 (test code = 379) CHLORIDE (BEAKER) 104 meq/L 98-107 (test code = 382) CO2 (BEAKER) (test 25 meq/L 22-29 code = 355) BLOOD UREA NITROGEN 10 mg/dL 7-21 (BEAKER) (test code = 354) CREATININE (BEAKER) 0.70 mg/dL 0.57-1.25 (test code = 358) GLUCOSE RANDOM 159 mg/dL 70-105 H (BEAKER) (test code = 652) CALCIUM (BEAKER) 8.8 mg/dL 8.4-10.2 (test code = 697) AST (SGOT) (BEAKER) 9 U/L 5-34 (test code = 353) ALT (SGPT) (BEAKER) 13 U/L 6-55 (test code = 347) EGFR (BEAKER) (test 103 ESTIMATE D GFR IS code = 1092) mL/min/1.73 sq NOT ACCURA TE m CREATININE CLEARANCE IN PREDICTING GLOMERULAR FILTRATION RATE . ESTIMATED GFR I S NOT APPLICABLE FOR DIALYSIS PATIEN TS. [address] Freight ID Maricruz MCKENNA MSARS-CoV2/RT-PCR (Asymptomatic ONLY)2020-09-04 12:52:00 Test Item Value Reference Range Interpretation Comments SARS-COV2/RT-PCR Negative Not Detected, (test code = Negative, See 75921-4) external report for linked test SARS-COV-2 [facility] PERFORMING LAB (test code = 48201-0) JESSICA (test code = Negative result for this JESSICA) test determines that SARS-CoV-2 RNA was not present in the specimen above the Limit of Detection (LOD). However, Negative results do not preclude SARS-CoV-2 infection and should not be used as the sole basis for treatment or patient management decisions. Negative results must be combined with clinical observations, patient history, and epidemiological information. A false negative result may occur if a specimen is improperly collected, transported or handled. A false negative result should be considered if patient's recent exposures or clinical presentation indicate that COVID-19 (SARS-CoV-2) is likely and diagnostic tests for other causes of illness are negative. Re-testing should be considered in cases of suspected false negatives. The limit of detection for this assay is 800 copies/mL. This SARS CoV-2 test is a real-time RT-PCR test intended for the qualitative detection of nucleic acid from SARS-CoV-2 in a nasopharyngeal swab specimen collected from individuals suspected of COVID-19 by their healthcare provider. This test has not been Food and Drug Administration (FDA) cleared or approved. This is a modified version of an approved Emergency Use Authorization (EUA) and is in the process of review by the FDA. Once authorized by the FDA, the issued EUA will be effective until the declaration that circumstances exist justifying the authorization of the emergency use of in vitro diagnostic tests for detection and/or diagnosis of COVID-19 is terminated under Section 564(b)(2) of the Act or the EUA is revoked under Section 564(g) of the Act. Fact Sheet for Healthcare Providers:https://www.V[employer]ilix idel.Salesvue/sites/default/f nito/product/documents/F act_Sheet_HC_Providers_L xlj_WVGT-GqB-7.pdf Fact Sheet for Healthcare Patients:https://www.ashly del.com/sites/default/fi les/product/documents/Fa ct_Sheet_Patients_Lyra_S ARS-CoV-2.pdf Performing Laboratory:[facility] [place] [address] [facility] ([facility])2020-09-04 12:52:00 Test Item Value Reference Range Interpretation Comments SARS-COV2/RT-PCR (test Negative Not Detected, Negative, code = 4593967) See external report for linked test SARS-COV-2 PERFORMING LAB [facility] (test code = 2900937) Negative result for this test determines that SARS-CoV-2 RNA was not present in the specimen above the Limit of Detection (LOD). However, Negative results do not preclude SARS-CoV-2 infection and should not be used as the sole basis for treatment or patient management decisions. Negative results mustbe combined with clinical observations, patient history, and epidemiological information. A false negative result may occur if a specimen is improperly collected, transported or handled. A false negative result should be considered if patient's recent exposures or clinical presentation indicate that COVID-19 (SARS-CoV-2) is likely and diagnostic tests for other causes of illness are negative. Re-testing should be considered in cases of suspected false negatives.The limit of detection for this assay is 800 copies/mL.This SARS CoV-2 test is a real-time RT-PCR test intended for the qualitative detection of nucleic acid from SARS-CoV-2 in a nasopharyngeal swab specimen collected from individuals susp ected of COVID-19 by their healthcare provider.This test has not been Food and Drug Administration (FDA) cleared or approved. This is a modified version of an approved Emergency Use Authorization (EUA) and is in the process of review by the FDA. Once authorized by the FDA, the issued EUA will be effective until the declaration that circumstances exist justifying the authorization of the emergency use of in vitro diagnostic tests for detection and/or diagnosis of COVID-19 is terminated under Section 564(b)(2) of the Act or the EUA is revoked under Section 564(g) of the Act.Fact Sheet for Healthcare Providers:https://www.Vigilixidel.com/sites/default/files/product/documents/Fact_Shee s_OU_Emtqhbezc_Imck_SXBD-LlU-6.pdfFact Sheet for Healthcare Patients:https://www.[employer] AMD.com/sites/default/files/product/ documents/Erjb_Abrqa_Ygweupjv_Apsb_TCVH-SgF-5.pdfPerforming Laboratory:[place] [id number], [place] [address]MSC with platelet count + automated [id number] 06:38:00 Test Item Value Reference Range Interpretation Comments WBC (test code = 6690-2) 11.4 See_Comment H [A utomated message] The system NativeAD generated this result transmitted ref erence range: 3.5 - 10 .5 K/L. The refe rence range was not u sed to interpret this result as normal/abnor mal. RBC (test code = 789-8) 4.35 See_Comment [Au tomated message] The system NativeAD generated this result transmitted ref erence range: 3.93 - 5 .22 M/L. The refe rence range was not u sed to interpret this result as normal/abnor mal. MCHC (test code = 786-4) 28.0 See_Comment L [A utomated message] The system NativeAD generated this result transmitted ref erence range: 32.2 - 3 5.5 GM/DL. The refe rence range was not u sed to interpret this result as normal/abnor mal. Hematocrit (test code = 31.1 % 34.1-44.9 L 4544-3) MCV (test code = 787-2) 71.5 fL 79.4-94.8 L MCH (test code = 785-6) 20.0 pg 25.6-32.2 L RDW (test code = 788-0) 18.8 % 11.7-14.4 H Platelets (test code = 350 See_Comment [Aut omated message] 777-3) The system NativeAD generated this result transmitted ref erence range: 150 - 45 0 K/CU MM. The referen ce range was not u sed to interpret this result as normal/abnor mal. MPV (test code = 9.0 fL 9.4-12.3 L 03482-6) nRBC (test code = 413) 0 See_Comment [Aut omated message] The system NativeAD generated this result transmitted ref erence range: 0 - 0 /1 00 WBC. The refere nce range was not u sed to interpret this result as normal/abnor mal. % Neutros (test code = 68 % 429) % Lymphs (test code = 18 % 430) % Monos (test code = 8 % 431) % Eos (test code = 432) 4 % % Baso (test code = 437) 0 % # Neutros (test code = 7.74 See_Comment H [Aut omated message] 670) The system NativeAD generated this result transmitted ref erence range: 1.56 - 6 .13 K/L. The refe rence range was not u sed to interpret this result as normal/abnor mal. # Lymphs (test code = 2.06 See_Comment [Auto mated message] 414) The system NativeAD generated this result transmitted ref erence range: 1.18 - 3 .74 K/L. The refe rence range was not u sed to interpret this result as normal/abnor mal. # Monos (test code = 0.95 See_Comment H [Autom ated message] 415) The system NativeAD generated this result transmitted ref erence range: 0.24 - 0 .36 K/L. The refe rence range was not u sed to interpret this result as normal/abnor mal. # Eos (test code = 416) 0.46 See_Comment H [Au tomated message] The system NativeAD generated this result transmitted ref erence range: 0.04 - 0 .36 K/L. The refe rence range was not u sed to interpret this result as normal/abnor mal. # Baso (test code = 417) 0.03 See_Comment [A utomated message] The system NativeAD generated this result transmitted ref erence range: 0.01 - 0 .08 K/L. The refe rence range was not u sed to interpret this result as normal/abnor mal. Immature 1 % 0-1 Granulocytes-Relative (test code = 2801) Lab Interpretation (test Abnormal code = 75679-0) [facility] W/PLT COUNT & AUTO [id number] 06:38:00 Test Item Value Reference Range Interpretation Comments WHITE BLOOD CELL COUNT (BEAKER) 11.4 K/ L 3.5-10.5 H (test code = 775) RED BLOOD CELL COUNT (BEAKER) 4.35 M/ L 3.93-5.22 (test code = 761) HEMOGLOBIN (BEAKER) (test code = 8.7 GM/DL 11.2-15.7 L 410) HEMATOCRIT (BEAKER) (test code = 31.1 % 34.1-44.9 L 411) MEAN CORPUSCULAR VOLUME (BEAKER) 71.5 fL 79.4-94.8 L (test code = 753) MEAN CORPUSCULAR HEMOGLOBIN 20.0 pg 25.6-32.2 L (BEAKER) (test code = 751) MEAN CORPUSCULAR HEMOGLOBIN CONC 28.0 GM/DL 32.2-35.5 L (BEAKER) (test code = 752) RED CELL DISTRIBUTION WIDTH 18.8 % 11.7-14.4 H (BEAKER) (test code = 412) PLATELET COUNT (BEAKER) (test 350 K/CU MM 150-450 code = 756) MEAN PLATELET VOLUME (BEAKER) 9.0 fL 9.4-12.3 L (test code = 754) NUCLEATED RED BLOOD CELLS 0 /100 WBC 0-0 (BEAKER) (test code = 413) NEUTROPHILS RELATIVE PERCENT 68 % (BEAKER) (test code = 429) LYMPHOCYTES RELATIVE PERCENT 18 % (BEAKER) (test code = 430) MONOCYTES RELATIVE PERCENT 8 % (BEAKER) (test code = 431) EOSINOPHILS RELATIVE PERCENT 4 % (BEAKER) (test code = 432) BASOPHILS RELATIVE PERCENT 0 % (BEAKER) (test code = 437) NEUTROPHILS ABSOLUTE COUNT 7.74 K/ L 1.56-6.13 H (BEAKER) (test code = 670) LYMPHOCYTES ABSOLUTE COUNT 2.06 K/ L 1.18-3.74 (BEAKER) (test code = 414) MONOCYTES ABSOLUTE COUNT (BEAKER) 0.95 K/ L 0.24-0.36 H (test code = 415) EOSINOPHILS ABSOLUTE COUNT 0.46 K/ L 0.04-0.36 H (BEAKER) (test code = 416) BASOPHILS ABSOLUTE COUNT (BEAKER) 0.03 K/ L 0.01-0.08 (test code = 417) IMMATURE GRANULOCYTES-RELATIVE 1 % 0-1 PERCENT (BEAKER) (test code = 2801) Prothrombin time/[id number] 05:07:00 Test Item Value Reference Interpretation Comments Range Protime (test code = 19.2 See_Comment H [Autom ated 5902-2) message] The system which generated this result transmitted reference range : 11.9 - 14.2 seconds. The reference range was not used to interpret this result as normal/abnormal . INR (test code = 1.64 See_Comment [Automated 6301-6) message] The system which generated this result transmitted reference range : <=5.90. The reference range was not used to interpret this result as normal/abnormal . JESSICA (test code = RECOMMENDED JESSICA) COUMADIN/WARFARIN INR THERAPY RANGESSTANDARD DOSE: 2.0 - 3.0 Includes: PROPHYLAXIS for venous thrombosis, systemic embolization; TREATMENT for venous thrombosis and/or pulmonary embolus.HIGH RISK: Target INR is 2.5-3.5 for patients with mechanical heart valves. Lab Interpretation Abnormal (test code = 61729-0) [facility] CenterPROTHROMBIN [facility]/[id number] 05:07:00 Test Item Value Reference Range Interpretation Comments PROTIME (BEAKER) 19.2 seconds 11.9-14.2 H (test code = 759) INR (BEAKER) (test 1.64 See_Comment [Automat ed message] code = 370) The system NativeAD generated this result transmitted ref erence range: <=5.90. The reference range was not used to int erpret this result as normal/abnormal . RECOMMENDED COUMADIN/WARFARIN INR THERAPY RANGESSTANDARD DOSE: 2.0 - 3.0 Includes: PROPHYLAXIS forvenous thrombosis, systemic embolization; TREATMENT for venous thrombosis and/or pulmonary embolus.HIGH RISK: Target INR is 2.5-3.5 for patients with mechanical heart valves.CBC (Hemogram only)2020-09-02 04:59:00 Test Item Value Reference Range Interpretation Comments WBC (test code = 6690-2) 10.9 See_Comment H [A utomated message] The system NativeAD generated this result transmitted ref erence range: 3.5 - 10 .5 K/L. The refe rence range was not u sed to interpret this result as normal/abnor mal. RBC (test code = 789-8) 4.36 See_Comment [Au tomated message] The system NativeAD generated this result transmitted ref erence range: 3.93 - 5 .22 M/L. The refe rence range was not u sed to interpret this result as normal/abnor mal. MCHC (test code = 786-4) 28.6 See_Comment L [A utomated message] The system NativeAD generated this result transmitted ref erence range: 32.2 - 3 5.5 GM/DL. The refe rence range was not u sed to interpret this result as normal/abnor mal. Hematocrit (test code = 30.4 % 34.1-44.9 L 4544-3) MCV (test code = 787-2) 69.7 fL 79.4-94.8 L MCH (test code = 785-6) 20.0 pg 25.6-32.2 L RDW (test code = 788-0) 18.8 % 11.7-14.4 H Platelets (test code = 361 See_Comment [Aut omated message] 777-3) The system NativeAD generated this result transmitted ref erence range: 150 - 45 0 K/CU MM. The referen ce range was not u sed to interpret this result as normal/abnor mal. MPV (test code = 8.9 fL 9.4-12.3 L 15456-5) nRBC (test code = 413) 0 See_Comment [Aut omated message] The system NativeAD generated this result transmitted ref erence range: 0 - 0 /1 00 WBC. The refere nce range was not u sed to interpret this result as normal/abnor mal. Lab Interpretation (test Abnormal code = 99560-3) [facility] (HEMOGRAM ONLY)2020-09-02 04:59:00 Test Item Value Reference Range Interpretation Comments WHITE BLOOD CELL COUNT (BEAKER) 10.9 K/ L 3.5-10.5 H (test code = 775) RED BLOOD CELL COUNT (BEAKER) 4.36 M/ L 3.93-5.22 (test code = 761) HEMOGLOBIN (BEAKER) (test code = 8.7 GM/DL 11.2-15.7 L 410) HEMATOCRIT (BEAKER) (test code = 30.4 % 34.1-44.9 L 411) MEAN CORPUSCULAR VOLUME (BEAKER) 69.7 fL 79.4-94.8 L (test code = 753) MEAN CORPUSCULAR HEMOGLOBIN 20.0 pg 25.6-32.2 L (BEAKER) (test code = 751) MEAN CORPUSCULAR HEMOGLOBIN CONC 28.6 GM/DL 32.2-35.5 L (BEAKER) (test code = 752) RED CELL DISTRIBUTION WIDTH 18.8 % 11.7-14.4 H (BEAKER) (test code = 412) PLATELET COUNT (BEAKER) (test 361 K/CU MM 150-450 code = 756) MEAN PLATELET VOLUME (BEAKER) 8.9 fL 9.4-12.3 L (test code = 754) NUCLEATED RED BLOOD CELLS 0 /100 WBC 0-0 (BEAKER) (test code = 413) U/S, CORE [id number] 08:58:00Reason for exam:->BIOPSY LEFT ILIOPSOAS MASS US VS [facility] 1960 Sex: FFINAL REPORT Procedure: Ultrasound-Guided left iliopsoas/inguinal mass core biopsy Pre/post-procedure diagnosis: Left iliopsoas/inguinal mass Intermodal Dispatcher: Abdirahman Chopra MD Assistants: none Sedation: Moderate sedation was administered. 1 mg of Versed and 50 mcg of fentanyl IV was used for moderate sedation monitored under my direction. Total intra-service time of sedation was 10 minutes. The patient's vital signs were monitored throughout the procedure and recorded in the patient's medical record by the nurse. Local Anesthesia: Five cc 1% Xylocaine Approach: Right upper quadrant, percutaneous Specimen: Total of three 18 G core biopsy samples; samples were delivered to pathology in formalin solution. Estimated blood loss: Less than 5 cc. Technique/findings: In formed written consent was obtained. Discussion of risks, benefits, and alternatives were made with the patient. The patient expressed understanding and agreed to proceed. A universal timeout was performed prior to starting the procedure. 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 This mass was targeted for core biopsy. Left groin was prepped and draped in sterile fashion. 1% lidocaine was used for local anesthesia. Using ultrasound guidance, following acquisition of permanent images, three core biopsy samples were obtained using an 18-gauge core biopsy needle. Hemostasiswas achieved with manual compression. A sterile dressing was applied. The patient tolerated the procedure without immediate complication. Impression: Successful, ultrasound-guided left inguinal mass core biopsy as detailed above. Signed: Abdirahman Chopra MDRmaude Verified Date/Time: 09/01/2020 08:58:59 Reading Location: [facility] Diagnostic Imaging Reading Room [place] [address] [id number] US Core [id number] 08:58:00Interface, External Ris In - 09/01/2020 9:01 AM CDTFINAL REPORT Procedure: Ultrasound-Guided left iliopsoas/inguinal mass core biopsy Pre/post-procedure diagnosis: Left iliopsoas /inguinal mass Intermodal Dispatcher: Abdirahman Chopra MD Assistants: none Sedation: Moderate sedation was administered. 1 mg of Versed and 50 mcg of fentanyl IV was used for moderate sedation monitored undermy direction. Total intra-service time of sedation was 10 minutes. The patient's vital signs were monitored throughout the procedure and recorded in the patient's medical record by the nurse. Local Anesthesia: Five cc 1% Xylocaine Approach: Right upper quadrant, percutaneous Specimen: Total of three18 G core biopsy samples; samples were delivered to pathology in formalin solution. Estimated blood loss: Less than 5 cc. Technique/findings: Informed written consent was obtained. Discussion of risks,benefits, and alternatives were made with the patient. The patient expressed understanding and agreed to proceed. A universal timeout was performed prior to starting the procedure. 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 This mass was targeted for core biopsy. Left groin was prepped and draped in sterile fashion. 1% lidocaine was used for local anesthesia. Using ultrasound guidance, following acquisition of permanent images, three core biopsy samples were obtained usingan 18-gauge core biopsy needle. Hemostasis was achieved with manual compression. A sterile dressing was applied. The patient tolerated the procedure without immediate complication. Impression: Successful, ultrasound-guided left inguinal mass core biopsy as detailed above. Signed: Abdirahman Chopra MDReport Verified Date/Time: 09/01/2020 08:58:59 Reading Location: [facility] Diagnostic Imaging Reading Room - [facility] [id number] [facility] (HEMOGRAM ONLY)2020-09-01 05:07:00 Test Item Value Reference Range Interpretation Comments WHITE BLOOD CELL COUNT (BEAKER) 10.8 K/ L 3.5-10.5 H (test code = 775) RED BLOOD CELL COUNT (BEAKER) 5.23 M/ L 3.93-5.22 H (test code = 761) HEMOGLOBIN (BEAKER) (test code = 10.1 GM/DL 11.2-15.7 L 410) HEMATOCRIT (BEAKER) (test code = 37.7 % 34.1-44.9 411) MEAN CORPUSCULAR VOLUME (BEAKER) 72.1 fL 79.4-94.8 L (test code = 753) MEAN CORPUSCULAR HEMOGLOBIN 19.3 pg 25.6-32.2 L (BEAKER) (test code = 751) MEAN CORPUSCULAR HEMOGLOBIN CONC 26.8 GM/DL 32.2-35.5 L (BEAKER) (test code = 752) RED CELL DISTRIBUTION WIDTH 19.2 % 11.7-14.4 H (BEAKER) (test code = 412) PLATELET COUNT (BEAKER) (test 441 K/CU MM 150-450 code = 756) MEAN PLATELET VOLUME (BEAKER) 9.3 fL 9.4-12.3 L (test code = 754) NUCLEATED RED BLOOD CELLS 0 /100 WBC 0-0 (BEAKER) (test code = 413) PROTHROMBIN [id number] 04:44:00 Test Item Value Reference Range Interpretation Comments PROTIME (BEAKER) 19.1 seconds 11.9-14.2 H (test code = 759) INR (BEAKER) (test 1.63 See_Comment [Automat ed message] code = 370) The system NativeAD generated this result transmitted ref erence range: <=5.90. The reference range was not used to int erpret this result as normal/abnormal . RECOMMENDED COUMADIN/WARFARIN INR THERAPY RANGESSTANDARD DOSE: 2.0 - 3.0 Includes: PROPHYLAXIS forvenous thrombosis, systemic embolization; TREATMENT for venous thrombosis and/or pulmonary embolus.HIGH RISK: Target INR is 2.5-3.5 for patients with mechanical heart valves.Vitamin B12 and [id number] 06:16:00 Test Item Value Reference Range Interpretation Comments Vitamin B12 (test 327 pg/mL 213-816 code = 2132-9) Folate (test code = 3.70 ng/mL See_Comment L [Automa yumiko 2284-8) message] The system which generated this result transmit yumiko reference range : >=7.00. The reference range was not used to interpret this result as normal/abnormal . JESSICA (test code = JESSICA) [address] Freight ID - BALA M Lab Interpretation Abnormal (test code = 36470-9) [facility] AND [id number] 06:16:00 Test Item Value Reference Range Interpretation Comments VITAMIN B12 (BEAKER) 327 pg/mL 213-816 (test code = 774) FOLATE (BEAKER) 3.70 ng/mL See_Comment L [Automated message] (test code = 362) The system which generated this result transmitted ref erence range: >=7.00. The reference range was not used to interpr et this result as normal/abnormal . [address] Freight ID - BALA MPROTHROMBIN [id number] 05:36:00 Test Item Value Reference Range Interpretation Comments PROTIME (BEAKER) 21.8 seconds 11.9-14.2 H (test code = 759) INR (BEAKER) (test 1.92 See_Comment [Automat ed message] code = 370) The system [employer] generated this result transmitted ref erence range: <=5.90. The reference range was not used to int erpret this result as normal/abnormal . RECOMMENDED COUMADIN/WARFARIN INR THERAPY RANGESSTANDARD DOSE: 2.0 - 3.0 Includes: PROPHYLAXIS forvenous thrombosis, systemic embolization; TREATMENT for venous thrombosis and/or pulmonary embolus.HIGH RISK: Target INR is 2.5-3.5 for patients with mechanical heart valves.CBC (HEMOGRAM ONLY)2020-08-31 05:22:00 Test Item Value Reference Range Interpretation Comments WHITE BLOOD CELL COUNT (BEAKER) 15.3 K/ L 3.5-10.5 H (test code = 775) RED BLOOD CELL COUNT (BEAKER) 4.56 M/ L 3.93-5.22 (test code = 761) HEMOGLOBIN (BEAKER) (test code = 9.1 GM/DL 11.2-15.7 L 410) HEMATOCRIT (BEAKER) (test code = 32.6 % 34.1-44.9 L 411) MEAN CORPUSCULAR VOLUME (BEAKER) 71.5 fL 79.4-94.8 L (test code = 753) MEAN CORPUSCULAR HEMOGLOBIN 20.0 pg 25.6-32.2 L (BEAKER) (test code = 751) MEAN CORPUSCULAR HEMOGLOBIN CONC 27.9 GM/DL 32.2-35.5 L (BEAKER) (test code = 752) RED CELL DISTRIBUTION WIDTH 18.7 % 11.7-14.4 H (BEAKER) (test code = 412) PLATELET COUNT (BEAKER) (test 414 K/CU MM 150-450 code = 756) MEAN PLATELET VOLUME (BEAKER) 9.4 fL 9.4-12.3 (test code = 754) NUCLEATED RED BLOOD CELLS 0 /100 WBC 0-0 (BEAKER) (test code = 413) CT, [id number] 11:32:00Unlisted Reason for Exam - Click Yes and Enter Reason Below->NoWill this procedure require oral contrast?->No [facility] 1960 Sex: FFINAL REPORT CT, CTA abdomen and lower extremities, with and without contrast. History: Pelvic mass, left lower extremity DVT, assess venous flow. Technique: Multidetector CT scanning of the abdomen and pelvis was performed from the level of the lung bases to the feet, before and after administration of IV contrast. Delayed scanning was performed. No oral contrast was given. Sagittal and coronal multiplanar MIP and 3D VRT reformations were obtained. This exam was performed according to our departmental dose- optimization program which includes automated exposure control, adjustment of the mA and/or kV according to patient size and/or use of iterative reconstruc tion technique. Discussion:Abdominal aorta and proximal branches: There is no evidence of aneurysm or stenosis. The maximal diameter of theabdominal aorta measures 2.1 cm at the level of the celiac trunk. The celiac trunk, SMA, and SENTHIL are patent. There are single renal arteries bilaterally which patent. The common, internal, and external iliac arteries are normal in size and patent. Right lower extremity: The NECKTIE CENTRALIZING MACHINE OPERATOR, DFA, SFA, and popliteal arteries are patent. Trifurcation vessels are patent. Left lower extremity: The NECKTIE CENTRALIZING MACHINE OPERATOR, DFA, SFA, and popliteal arteries are patent. Trifurcation vessels are patent. There is diffuse subcutaneous edemaof the left lower extremity. Lung bases: No visualized abnormalities. Abdomen: The liver, gallbladder, biliary tree, spleen, pancreas, kidneys, and adrenal glands are normal. Evaluation of bowel is limited without oral contrast. There is no bowel dilatation. The appendix is visualized and is normal.There is no evidence of adenopathy or free fluid. Pelvis: The heterogeneously enhancing left iliopsoas mass is present extending into left inguinal region, overall measuring 12.4 x 9.7 x 21.9 cm. This mass displaces the left iliac and femoral arteries medially, with invasion/occlusion of the left ex ternal iliac vein. The left femoral vein below the mass is patent. There are multiple surrounding enlarged left inguinal nodes measuring up to 1.6 cm. Bladder is unremarkable. Uterus and adnexa are notvisualized. There is no evidence of free fluid. Bones: Degenerative changes are present throughout the lumbar spine without evidence of lytic or sclerotic lesion. Right hip prosthesis is intact. IMPRESSION:Large left iliopsoas mass with left iliac vein invasion/occlusion and associated left inguinaladenopathy as well as diffuse left lower extremity edema. No evidence remote metastatic disease. Signed: Kale Bulleport Verified Date/Time: 08/30/2020 11:32:07 Reading Location: [facility] B1 P048 Angio Body Reading Room CT, CTA AAA, W/ BELLA.EXT.RUNOFF 2020-08-30 11:32:00LLE DVT, assess prior pelvic mass, please assess venous phaseAnesthesia:->None [facility] : 1960 Sex: FFINAL REPORT CT, CTA abdomen and lower extremities, with and without contrast. History: Pelvic mass, left lower extremity DVT, assess venous flow. Technique: Multidetector CT scanning of the abdomen and pelvis was performed from the level of the lung bases to the feet, before and after administration of IV contrast. Delayed scanning was performed. No oral contrast was given. Sagittal and coronal multiplanar MIP and 3D VRT reformations were obtained. This exam was performed according to our departmental dose- optimization program which includes automated exposure control, adjustment of the mA and/or kV according to patient size and/or use of iterative reconstruc tion technique. Discussion:Abdominal aorta and proximal branches: There is no evidence of aneurysm or stenosis. The maximal diameter of theabdominal aorta measures 2.1 cm at the level of the celiac trunk. The celiac trunk, SMA, and SENTHIL are patent. There are single renal arteries bilaterally which patent. The common, internal, and external iliac arteries are normal in size and patent. Right lower extremity: The NECKTIE CENTRALIZING MACHINE OPERATOR, DFA, SFA, and popliteal arteries are patent. Trifurcation vessels are patent. Left lower extremity: The NECKTIE CENTRALIZING MACHINE OPERATOR, DFA, SFA, and popliteal arteries are patent. Trifurcation vessels are patent. There is diffuse subcutaneous edemaof the left lower extremity. Lung bases: No visualized abnormalities. Abdomen: The liver, gallbladder, biliary tree, spleen, pancreas, kidneys, and adrenal glands are normal. Evaluation of bowel is limited without oral contrast. There is no bowel dilatation. The appendix is visualized and is normal.There is no evidence of adenopathy or free fluid. Pelvis: The heterogeneously enhancing left iliopsoas mass is present extending into left inguinal region, overall measuring 12.4 x 9.7 x 21.9 cm. This mass displaces the left iliac and femoral arteries medially, with invasion/occlusion of the left ex ternal iliac vein. The left femoral vein below the mass is patent. There are multiple surrounding enlarged left inguinal nodes measuring up to 1.6 cm. Bladder is unremarkable. Uterus and adnexa are notvisualized. There is no evidence of free fluid. Bones: Degenerative changes are present throughout the lumbar spine without evidence of lytic or sclerotic lesion. Right hip prosthesis is intact. IMPRESSION:Large left iliopsoas mass with left iliac vein invasion/occlusion and associated left inguinaladenopathy as well as diffuse left lower extremity edema. No evidence remote metastatic disease. Signed: Kale Bull MDReport Verified Date/Time: 08/30/2020 11:32:07 Reading Location: [place] [address] Angio Body Reading Room CT abdomen/pelvis with IV contrast 2020-08-30 11:32:00Interface, External Ris In - 08/30/2020 11:[address], CTA abdomen and lower extremities, with and without contrast. History: Pelvic mass, left lower extremity DVT, assess venous flow. Technique: Multidetector CT scanning of the abdomen and pelvis was performed from the level of the lung bases to the feet, before and after administration of IV contrast. Delayed scanning was performed. No oral contrast was given. Sagittal and coronal multiplanar MIP and 3D VRT reformations were obtained. This exam was performed according to our departmental dose-optimization program which includes automated exposure control, adjustment of the mA and/or kV according to patient size and/or use of iterative reconstruction technique. Discussion:Abdominal aorta and proximal branches: There is no evidence of aneurysm or stenosis. The maximal diameter of the abdominal aorta measures 2.1 cm at the level of the celiac trunk. The celiac trunk, SMA, and SENTHIL are patent. There are single renal arteries bilaterally which patent. The common, internal, and external iliac arteries are normal in size and patent. Right lower extremity: The NECKTIE CENTRALIZING MACHINE OPERATOR, DFA, SFA, and popliteal arteries are patent. Trifurcation vessels are patent. Left lower extremity: The NECKTIE CENTRALIZING MACHINE OPERATOR, DFA, SFA, and popliteal arteries are patent. Trifurcation vessels are patent. There is diffuse subcutaneous edema of the left lower extremity. Lung bases: No visualized abnormalities. Abdomen: The liver, gallbladder, biliary tree, spleen, pancreas, kidneys, and adrenal glands are normal. Evaluation of bowel is limited without oral contrast. There is no bowel dilatation.The appendix is visualized and is normal. There is no evidence of adenopathy or free fluid. Pelvis: The heterogeneously enhancing left iliopsoas mass is present extending into left inguinal region,overall measuring 12.4 x 9.7 x 21.9 cm. This mass displaces the left iliac and femoral arteries medially, with invasion/occlusion of the left external iliac vein. The left femoral vein below the mass is patent. There are multiple surrounding enlarged left inguinal nodes measuring up to 1.6 cm. Bladderis unremarkable. Uterus and adnexa are not visualized. There is no evidence of free fluid. Bones: De generative changes are present throughout the lumbar spine without evidence of lytic or sclerotic lesion. Right hip prosthesis is intact. IMPRESSION:Large left iliopsoas mass with left iliac vein invasion/occlusion and associated left inguinal adenopathy as well as diffuse left lower extremity edema.No evidence remote metastatic disease. Signed: Kale Bull MDReport Verified Date/Time: 08/30/2020 11:32:07 Reading Location: [facility] B1 P048 Angio Body [facility] and [id number] 11:32:00Interface, External Ris In - 08/30/2020 11:[address], CTA abdomen and lower extremities, with and without contrast. History: Pelvic mass, left lower extremity DVT, assess venous flow. Technique: Multidetector CT scanning of the abdomen and pelvis was performed from the level of the lung bases to the feet, before and after administration of IV contrast. Delayed scanning was performed. No oral contrast was given. Sagittal and coronal multiplanar MIP and 3D VRT reformations were obtained. This exam was performed according to our departmental dose-optimization program which includes automated exposure control, adjustment of the mA and/or kV according to patient size and/or use of iterative reconstruction technique. Discussion:Abdominal aorta and proximal branches: There is no evidence of aneurysm or stenosis. The maximal diameter of the abdominal aorta measures 2.1 cm at the level of the celiac trunk. The celiac trunk, SMA, and SENTHIL are patent. There are single renal arteries bilaterally which patent. The common, internal, and external iliac arteries are normal in size and patent. Right lower extremity: The NECKTIE CENTRALIZING MACHINE OPERATOR, DFA, SFA, and popliteal arteries are patent. Trifurcation vessels are patent. Left lower extremity: The NECKTIE CENTRALIZING MACHINE OPERATOR, DFA, SFA, and popliteal arteries are patent. Trifurcation vessels are patent. There is diffuse subcutaneous edema of the left lower extremity. Lung bases: No visualized abn ormalities. Abdomen: The liver, gallbladder, biliary tree, spleen, pancreas, kidneys, and adrenal glands are normal. Evaluation of bowel is limited without oral contrast. There is no bowel dilatation.The appendix is visualized and is normal. There is no evidence of adenopathy or free fluid. Pelvis: The heterogeneously enhancing left iliopsoas mass is present extending into left inguinal region,overall measuring 12.4 x 9.7 x 21.9 cm. This mass displaces the left iliac and femoral arteries medially, with invasion/occlusion of the left external iliac vein. The left femoral vein below the mass is patent. There are multiple surrounding enlarged left inguinal nodes measuring up to 1.6 cm. Bladderis unremarkable. Uterus and adnexa are not visualized. There is no evidence of free fluid. Bones: Degenerative changes are present throughout the lumbar spine without evidence of lytic or sclerotic lesion. Right hip prosthesis is intact. IMPRESSION:Large left iliopsoas mass with left iliac vein invas ion/occlusion and associated left inguinal adenopathy as well as diffuse left lower extremity edema.No evidence remote metastatic disease. Signed: Kale Bull Verified Date/Time: 08/30/2020 11:32:07 Reading Location: [facility] B1 P048 Angio Body Reading Room [facility], [id number] 09:31:54Ejection [facility] ECHO HEARTLAB MKCKESSON CPACS Left Impression1. The common femoral, profunda femoral, superficial femoral, popliteal,posterior tibial and anterior tibial arteries are patent with n ormaltriphasic Doppler waveforms throughout.2. There is a vascularized structure in the groin that measures 10.6 cm X6.07 cm.3. There is an enlarged lymph node in the groin that measures 6.94 cm X 4.42cm X 2.22 cm. Conclusions Summary Arterial duplex was performed on the left lower extremity. The arteries were adequately visualized. There were triphasic Doppler waveforms throughout. There was vascularized structure in the groin that measures 10.6 cm X 6.07 cm. There is not a clear communication with the adjacent artery or vein visualized. There was an enlarged lymph node in the groin that measures 6.94 cm X 4.42 cm X 2.22 cm. Signature Velocities are measured in cm/s ; Diameters are measured in cm LE Duplex Measurements Right Left + + + + + + + + + + !Location ! !PSV !EDV !Waveform ! !PSV !EDV !Waveform ! + + + + + + +----- + + + !Mid Common Femoral ! !142 ! ! ! + + + + + + !Prox PFA ! !92.4 ! ! ! + + + + + + !Prox SFA ! !108 ! ! ! + + + + + + !Mid SFA ! !70.6 ! ! ! + + + + + + !Dist SFA ! !71.4 ! ! ! +--- + + + + + !Dist Popli teal ! !75.5 ! ! ! + + + + + + !Mid SCHOOL PSYCHOLOGIST ! !59.4 ! ! ! + + +-- + + + !Dist SCHOOL PSYCHOLOGIST ! !61.6 ! ! ! + + + ---+ + + !Prox JANETTE ! !64.3 ! ! ! + + + + --------+ + !Mid JANETTE ! !80.3 ! ! ! + + + + + + !Dist JANETTE ! !67.1 ! ! ! + + + + + + Interface, External Ris In - 08/30/2020 9:32 AM CDTPV LAB - Lower Extremity Arterial Duplex Demographics Patient Name DANIEL DEL VALLE Date of Study 08/29/2020 NEELAM Age 60 Visit Number [id number] Gender Female Accession Number [id number] Date of 1960 Referring Tricia Hernandez Room Number 2546 Physician Richard Mold Hoister Stacy Benitez MD RVT Physician ProcedureType of Study: Extremities Arteries: Lower Extremities Arterial Duplex, ARTERIAL DOPPLER LEG, LEFT. Indications for Study:Leg pain .Patient Status:STAT.Study Location:Vascular Lab.Technical Quality:Adequate visualization.Risk FactorsHistory of Disease+ + + +!Diagnosis !Date !Comments !+ + + +! Other ! ! !+ -+ + +ImpressionsLeft Impression1. The common femoral, profunda femoral, superficial femoral, popliteal,posterior tibial and anterior tibial arteries are patent with normaltriphasic Doppler waveforms throughout.2. There is a vascularized structure in the groin that measures 10.6 cm X6.07 cm.3. There is an enlarged lymph node in the groin that measures 6.94 cm X 4.42cm X 2.22 cm. Conclusions Summary Arterial duplex was performed on the left lower extremity. The arteries were adequately visualized. There were triphasic Doppler waveforms throughout. There was vascularized structure in the groin that measures 10.6 cm X 6.07 cm. There is not a clear communication with the adjacent artery or vein visualized. There was an enlarged lymph node in the groin that measures 6.94 cm X 4.42 cm X 2.22 cm. Signature Velocities are measured in cm/s ;Diameters are measured in cmLE Duplex Measurements Right Left + + + + + + + + + + !Location ! !PSV !EDV !Waveform ! !PSV !EDV !Waveform ! + + + + + + + + + + !Mid Common Femoral ! !142 ! ! ! + + + ------+ + + !Prox PFA ! !92.4 ! ! ! + + + +------- + + !Prox SFA ! !108 ! ! ! + + + + + + !Mid SFA ! !70.6 ! ! ! + + + + + + !Dist SFA ! !71.4 ! !! + + + + + + !Dist Popliteal ! !75.5 ! ! ! + + + + + + !Mid SCHOOL PSYCHOLOGIST ! !59.4 ! ! ! + + + + + + !Dist SCHOOL PSYCHOLOGIST ! !61.6 ! ! ! + + + ---------+ + + !Prox JANETTE ! !64.3 ! ! ! + + + +---- + + !Mid JANETTE ! !80.3 ! ! ! + + + + + + !Dist JANETTE ! !67.1 ! ! ! + + + + + +[facility] [id number] 06:17:00 Test Item Value Reference Range Interpretation Comments BUN (test code = 13 mg/dL 10-04 3094-0) Creatinine (test 0.72 mg/dL 0.57-1.25 code = 2160-0) BUN/Creatinine 18 For a normal ratio (test code = individua l on a 3097-3) normal diet, th e reference inter jewel for the mass ra nabil ranges between 12:1 and 20:1 ( BUN in mg/dL/creatinin e in mg/dL) EGFR (test code = 100 mL/min/1.73 [place] [address]-6) NOT ACCURATE CREATININE CLEARANCE IN PREDICTING GLOMERULAR FILTRATION RATE . ESTIMATED GFR I S NOT APPLICABLE FOR DIALYSIS PATIEN TS. JESSICA (test code = [address] Freight ID - BS JESSICA) [facility] Center[facility] [id number] 06:17:00 Test Item Value Reference Range Interpretation Comments BLOOD UREA NITROGEN 13 mg/dL - (BEAKER) (test code = 354) CREATININE (BEAKER) 0.72 mg/dL 0.57-1.25 (test code = 358) BUN/CREAT RATIO 18 For a normal (BEAKER) (test code individu al on a = [id number]) normal diet, t he reference inter jewel for the mass ra nabil ranges between 12:1 and 20:1 (BUN i n mg/dL/creatinin e in mg/dL) EGFR (BEAKER) (test 100 mL/min/1.73 ESTIM ATED GFR IS code = 1092) sq m NOT ACCURATE CREATININE CLEARANCE IN PREDICTING GLOMERULAR FILTRATION RATE . ESTIMATED GFR I S NOT APPLICABLE FOR DIALYSIS PATIEN TS. [address] Freight ID - BSCBC (HEMOGRAM ONLY)2020-08-30 05:50:00 Test Item Value Reference Range Interpretation Comments WHITE BLOOD CELL COUNT (BEAKER) 13.5 K/ L 3.5-10.5 H (test code = 775) RED BLOOD CELL COUNT (BEAKER) 4.22 M/ L 3.93-5.22 (test code = 761) HEMOGLOBIN (BEAKER) (test code = 8.3 GM/DL 11.2-15.7 L 410) HEMATOCRIT (BEAKER) (test code = 29.6 % 34.1-44.9 L 411) MEAN CORPUSCULAR VOLUME (BEAKER) 70.1 fL 79.4-94.8 L (test code = 753) MEAN CORPUSCULAR HEMOGLOBIN 19.7 pg 25.6-32.2 L (BEAKER) (test code = 751) MEAN CORPUSCULAR HEMOGLOBIN CONC 28.0 GM/DL 32.2-35.5 L (BEAKER) (test code = 752) RED CELL DISTRIBUTION WIDTH 18.5 % 11.7-14.4 H (BEAKER) (test code = 412) PLATELET COUNT (BEAKER) (test 328 K/CU MM 150-450 code = 756) MEAN PLATELET VOLUME (BEAKER) 9.3 fL 9.4-12.3 L (test code = 754) NUCLEATED RED BLOOD CELLS 0 /100 WBC 0-0 (BEAKER) (test code = 413) PROTHROMBIN [id number] 05:48:00 Test Item Value Reference Range Interpretation Comments PROTIME (BEAKER) 21.5 seconds 11.9-14.2 H (test code = 759) INR (BEAKER) (test 1.89 See_Comment [Automat ed message] code = 370) The system NativeAD generated this result transmitted ref erence range: <=5.90. The reference range was not used to int erpret this result as normal/abnormal . RECOMMENDED COUMADIN/WARFARIN INR THERAPY RANGESSTANDARD DOSE: 2.0 - 3.0 Includes: PROPHYLAXIS forvenous thrombosis, systemic embolization; TREATMENT for venous thrombosis and/or pulmonary embolus.HIGH RISK: Target INR is 2.5-3.5 for patients with mechanical heart valves.Heparin Assay - Low Molecular Weight 2020-08-29 14:07:00 Test Item Value Reference Range Interpretation Comments Anti 10A-Lovenox (test 0.85 u/ml 0.6-2 code = 1605) JESSICA (test code = JESSICA) Anti-Factor 10-A Level (Heparin Assay for Low Molecular Weight Heparin)Monitoring Guidelines: Blood samples should be obtained 4 hours post subcutaneous injection (time of Peak level) Therapeutic Peak Levels: 0.6-1.0 units/mL twice daily enoxaparin 1.0-2.0 units/mL once daily enoxaparin Ref: CHEST 2012;[id number] Lab Interpretation (test Normal code = 91017-8) [facility] [id number] 14:07:00 Test Item Value Reference Range Interpretation Comments LOVENOX-ANTI 10A (BEAKER) (test 0.85 u/ml 0.60-2.00 code = 1605) Anti-Factor 10-A Level (Heparin Assay for Low Molecular Weight Heparin)Monitoring Guidelines: Blood samples should be obtained 4 hours post subcutaneous injection (time of Peak level) Therapeutic Peak Levels: 0.6-1.0 units/mL twice daily enoxaparin 1.0-2.0 units/mL once daily enoxaparinRef: CHEST 2012;[id number] (HEMOGRAM ONLY)2020-08-29 13:22:00 Test Item Value Reference Range Interpretation Comments WHITE BLOOD CELL COUNT (BEAKER) 10.6 K/ L 3.5-10.5 H (test code = 775) RED BLOOD CELL COUNT (BEAKER) 4.44 M/ L 3.93-5.22 (test code = 761) HEMOGLOBIN (BEAKER) (test code = 8.9 GM/DL 11.2-15.7 L 410) HEMATOCRIT (BEAKER) (test code = 31.3 % 34.1-44.9 L 411) MEAN CORPUSCULAR VOLUME (BEAKER) 70.5 fL 79.4-94.8 L (test code = 753) MEAN CORPUSCULAR HEMOGLOBIN 20.0 pg 25.6-32.2 L (BEAKER) (test code = 751) MEAN CORPUSCULAR HEMOGLOBIN CONC 28.4 GM/DL 32.2-35.5 L (BEAKER) (test code = 752) RED CELL DISTRIBUTION WIDTH 18.5 % 11.7-14.4 H (BEAKER) (test code = 412) PLATELET COUNT (BEAKER) (test 332 K/CU MM 150-450 code = 756) MEAN PLATELET VOLUME (BEAKER) 9.2 fL 9.4-12.3 L (test code = 754) NUCLEATED RED BLOOD CELLS 0 /100 WBC 0-0 (BEAKER) (test code = 413) CBC (HEMOGRAM ONLY)2020-08-29 05:43:00 Test Item Value Reference Range Interpretation Comments WHITE BLOOD CELL COUNT (BEAKER) 9.8 K/ L 3.5-10.5 (test code = 775) RED BLOOD CELL COUNT (BEAKER) 4.50 M/ L 3.93-5.22 (test code = 761) HEMOGLOBIN (BEAKER) (test code = 8.9 GM/DL 11.2-15.7 L 410) HEMATOCRIT (BEAKER) (test code = 32.3 % 34.1-44.9 L 411) MEAN CORPUSCULAR VOLUME (BEAKER) 71.8 fL 79.4-94.8 L (test code = 753) MEAN CORPUSCULAR HEMOGLOBIN 19.8 pg 25.6-32.2 L (BEAKER) (test code = 751) MEAN CORPUSCULAR HEMOGLOBIN CONC 27.6 GM/DL 32.2-35.5 L (BEAKER) (test code = 752) RED CELL DISTRIBUTION WIDTH 18.6 % 11.7-14.4 H (BEAKER) (test code = 412) PLATELET COUNT (BEAKER) (test 335 K/CU MM 150-450 code = 756) MEAN PLATELET VOLUME (BEAKER) 9.8 fL 9.4-12.3 (test code = 754) NUCLEATED RED BLOOD CELLS 0 /100 WBC 0-0 (BEAKER) (test code = 413) PROTHROMBIN TIME/[id number] 05:41:00 Test Item Value Reference Range Interpretation Comments PROTIME (BEAKER) 17.4 seconds 11.9-14.2 H (test code = 759) INR (BEAKER) (test 1.45 See_Comment [Automat ed message] code = 370) The system NativeAD generated this result transmitted ref erence range: <=5.90. The reference range was not used to int erpret this result as normal/abnormal . RECOMMENDED COUMADIN/WARFARIN INR THERAPY RANGESSTANDARD DOSE: 2.0 - 3.0 Includes: PROPHYLAXIS forvenous thrombosis, systemic embolization; TREATMENT for venous thrombosis and/or pulmonary embolus.HIGH RISK: Target INR is 2.5-3.5 for patients with mechanical heart valves.BUN AND CREATININE [id number] 17:04:00 Test Item Value Reference Range Interpretation Comments BLOOD UREA NITROGEN 9 mg/dL 7-21 (HARDIK) (test code = 354) CREATININE (HARDIK) 0.79 mg/dL 0.57-1.25 (test code = 358) BUN/CREAT RATIO 11 For a normal (HARDIK) (test code individu al on a = [id number]) normal diet, t he reference inter jewel for the mass ra nabil ranges between 12:1 and 20:1 (BUN i n mg/dL/creatinin e in mg/dL) EGFR (HARDIK) (test 90 mL/min/1.73 ESTIMA YUMIKO GFR IS code = 1092) sq m NOT ACCURATE CREATININE CLEARANCE IN PREDICTING GLOMERULAR FILTRATION RATE . ESTIMATED GFR I S NOT APPLICABLE FOR DIALYSIS PATIEN TS. [address] Freight ID - DBVenous doppler leg, [id number] 15:52:54Ejection FractionSLEH ECHO HEARTLAB MKCKESSON CPA Left Impression1. There is partial echolucent deep venous obstruction in the commonfemoral, profunda femoral, and proximal femoral veins.2. There is evidence of deep venous obstruction in the popliteal, posteriortibial and peroneal veins.3. There is partial echolucent superficial venous obstruction in the greatersaphenous vein . Conclusions Summary Venous duplex imaging and compression of the left lower extremity were performed. The veins were technically difficult to visualize due to edema and patient body habitus. The left deep venous system was positive with acute thrombus. The venous Doppler waveforms were pulsatile indicating possible elevated right heart filling pressure . Signature - Velocities are measured in cm/s ; Diameters are measured in cm Interface, External Ris In - 08/28/2020 3:53 PM CDTPV LAB - Lower Extremities DVT Study Demographics Patient Name DANIEL DEL VALLE Date of Study 08/28/2020 NEELAM Age 60 Visit Number [id number] Gender Female Accession Number [id number] Date of 1960 Referring [facility] Room Number 2546 Physician Richard Mold Hoister Jarad Mayberry Interpreting Vivek Benitez MD RVT Physician ProcedureType of Study: Veins: Lower Extremities DVT Study, VENOUS DO PPLER LEG, LEFT. Indications for Study:Pain.Patient Status:STAT.Study Location:Portable.Technical Quality:Technically Difficult. - Results were reported to:Ceci Hathaway@12:40.Risk FactorsHistory of Disease +---------+----+ +!Lillian gnosis!Date!Comments !+---------+----+ +!Other ! !Morbid Obesity 311 Lbs !+---------+----+ +Imp ressionsLeft Impression1. There is partial echolucent deep venous obstruction in the commonfemoral, profunda femoral, andproximal femoral veins.2. There is evidence of deep venous obstruction in the popliteal, posteriortibial and peroneal veins.3. There is partial echolucent superficial venous obstruction in the greatersaphenous vein . Conclusions Summary Venous duplex imaging and compression of the left lower extremity were performed. The veins were technically difficult to visualize due to edema and patient body habitus. The left deep venous system was positive with acute thrombus. The venous Doppler waveforms were pulsatile indicating possible elevated right heart filling pressure . Signature Velocities are measured in cm/s ; Diameters are measured in [facility] SARS-COV2/RT-PCR ([facility])2020-08-28 12:32:00 Test Item Value Reference Range Interpretation Comments SARS-COV2/RT-PCR (test Negative Not Detected, Negative, code = 6108380) See external report for linked test SARS-COV-2 PERFORMING LAB [facility] (test code = 5416342) Negative result for this test determines that SARS-CoV-2 RNA was not present in the specimen above the Limit of Detection (LOD). However, Negative results do not preclude SARS-CoV-2 infection and should not be used as the sole basis for treatment or patient management decisions. Negative results mustbe combined with clinical observations, patient history, and epidemiological information. A false negative result may occur if a specimen is improperly collected, transported or handled. A false negative result should be considered if patient's recent exposures or clinical presentation indicate that COVID-19 (SARS-CoV-2) is likely and diagnostic tests for other causes of illness are negative. Re-testing should be considered in cases of suspected false negatives.The limit of detection for this assay is 800 copies/mL.This SARS CoV-2 test is a real-time RT-PCR test intended for the qualitative detection of nucleic acid from SARS-CoV-2 in a nasopharyngeal swab specimen collected from individuals susp ected of COVID-19 by their healthcare provider.This test has not been Food and Drug Administration (FDA) cleared or approved. This is a modified version of an approved Emergency Use Authorization (EUA) and is in the process of review by the FDA. Once authorized by the FDA, the issued EUA will be effective until the declaration that circumstances exist justifying the authorization of the emergency use of in vitro diagnostic tests for detection and/or diagnosis of COVID-19 is terminated under Section 564(b)(2) of the Act or the EUA is revoked under Section 564(g) of the Act.Fact Sheet for Healthcare Providers:https://www.[employer]Salesvue/sites/default/files/product/documents/Fact_Shee b_UC_Rgsidbqvz_Tpnp_WHFA-DgG-3.pdfFact Sheet for Healthcare Patients:https://www.[employer]/sites/default/files/product/ documents/Mtei_Potno_Qfbfwknf_Unbf_WFUE-LuJ-2.pdfPerforming Laboratory:[facility], [place] [address]RQAKFSFXVCK TIME/INR 2020-08-28 05:15:00 Test Item Value Reference Range Interpretation Comments PROTIME (MEEAKER) 16.1 seconds 11.9-14.2 H (test code = 759) INR (BEAKER) (test 1.31 See_Comment [Automat ed message] code = 370) The system NativeAD generated this result transmitted ref erence range: <=5.90. The reference range was not used to int erpret this result as normal/abnormal . RECOMMENDED COUMADIN/WARFARIN INR THERAPY RANGESSTANDARD DOSE: 2.0 - 3.0 Includes: PROPHYLAXIS forvenous thrombosis, systemic embolization; TREATMENT for venous thrombosis and/or pulmonary embolus.HIGH RISK: Target INR is 2.5-3.5 for patients with mechanical heart valves.CBC (HEMOGRAM ONLY)2020-08-28 05:12:00 Test Item Value Reference Range Interpretation Comments WHITE BLOOD CELL COUNT (BEAKER) 9.5 K/ L 3.5-10.5 (test code = 775) RED BLOOD CELL COUNT (BEAKER) 4.55 M/ L 3.93-5.22 (test code = 761) HEMOGLOBIN (BEAKER) (test code = 8.9 GM/DL 11.2-15.7 L 410) HEMATOCRIT (BEAKER) (test code = 31.9 % 34.1-44.9 L 411) MEAN CORPUSCULAR VOLUME (BEAKER) 70.1 fL 79.4-94.8 L (test code = 753) MEAN CORPUSCULAR HEMOGLOBIN 19.6 pg 25.6-32.2 L (BEAKER) (test code = 751) MEAN CORPUSCULAR HEMOGLOBIN CONC 27.9 GM/DL 32.2-35.5 L (BEAKER) (test code = 752) RED CELL DISTRIBUTION WIDTH 18.5 % 11.7-14.4 H (BEAKER) (test code = 412) PLATELET COUNT (BEAKER) (test 334 K/CU MM 150-450 code = 756) MEAN PLATELET VOLUME (BEAKER) 9.3 fL 9.4-12.3 L (test code = 754) NUCLEATED RED BLOOD CELLS 0 /100 WBC 0-0 (BEAKER) (test code = 413) PROTHROMBIN [id number] 16:24:00 Test Item Value Reference Range Interpretation Comments PROTIME (BEAKER) 14.7 seconds 11.9-14.2 H (test code = 759) INR (BEAKER) (test 1.20 See_Comment [Automat ed message] code = 370) The system NativeAD generated this result transmitted ref erence range: <=5.90. The reference range was not used to int erpret this result as normal/abnormal . RECOMMENDED COUMADIN/WARFARIN INR THERAPY RANGESSTANDARD DOSE: 2.0 - 3.0 Includes: PROPHYLAXIS forvenous thrombosis, systemic embolization; TREATMENT for venous thrombosis and/or pulmonary embolus.HIGH RISK: Target INR is 2.5-3.5 for patients with mechanical heart valves.CBC (HEMOGRAM ONLY)2020-08-27 04:26:00 Test Item Value Reference Range Interpretation Comments WHITE BLOOD CELL COUNT (BEAKER) 10.5 K/ L 3.5-10.5 (test code = 775) RED BLOOD CELL COUNT (BEAKER) 4.76 M/ L 3.93-5.22 (test code = 761) HEMOGLOBIN (BEAKER) (test code = 9.4 GM/DL 11.2-15.7 L 410) HEMATOCRIT (BEAKER) (test code = 34.8 % 34.1-44.9 411) MEAN CORPUSCULAR VOLUME (BEAKER) 73.1 fL 79.4-94.8 L (test code = 753) MEAN CORPUSCULAR HEMOGLOBIN 19.7 pg 25.6-32.2 L (BEAKER) (test code = 751) MEAN CORPUSCULAR HEMOGLOBIN CONC 27.0 GM/DL 32.2-35.5 L (BEAKER) (test code = 752) RED CELL DISTRIBUTION WIDTH 18.6 % 11.7-14.4 H (BEAKER) (test code = 412) PLATELET COUNT (BEAKER) (test 346 K/CU MM 150-450 code = 756) MEAN PLATELET VOLUME (BEAKER) 9.6 fL 9.4-12.3 (test code = 754) NUCLEATED RED BLOOD CELLS 0 /100 WBC 0-0 (BEAKER) (test code = 413) PROTHROMBIN TIME/[id number] 14:53:00 Test Item Value Reference Range Interpretation Comments PROTIME (BEAKER) 10.1 seconds 9.8-12.0 (test code = 759) INR (BEAKER) (test 0.94 See_Comment [Automat ed message] code = 370) The system NativeAD generated this result transmitted ref erence range: <=5.90. The reference range was not used to int erpret this result as normal/abnormal . RECOMMENDED COUMADIN/WARFARIN INR THERAPY RANGESSTANDARD DOSE: 2.0 - 3.0 Includes: PROPHYLAXIS forvenous thrombosis, systemic embolization; TREATMENT for venous thrombosis and/or pulmonary embolus.HIGH RISK: Target INR is 2.5-3.5 for patients with mechanical heart valves.CBC (HEMOGRAM ONLY)2020-08-26 12:06:00 Test Item Value Reference Range Interpretation Comments WHITE BLOOD CELL COUNT (BEAKER) 10.4 K/ L 3.5-10.5 (test code = 775) RED BLOOD CELL COUNT (BEAKER) 4.65 M/ L 3.93-5.22 (test code = 761) HEMOGLOBIN (BEAKER) (test code = 9.3 GM/DL 11.2-15.7 L 410) HEMATOCRIT (BEAKER) (test code = 33.6 % 34.1-44.9 L 411) MEAN CORPUSCULAR VOLUME (BEAKER) 72.3 fL 79.4-94.8 L (test code = 753) MEAN CORPUSCULAR HEMOGLOBIN 20.0 pg 25.6-32.2 L (BEAKER) (test code = 751) MEAN CORPUSCULAR HEMOGLOBIN CONC 27.7 GM/DL 32.2-35.5 L (BEAKER) (test code = 752) RED CELL DISTRIBUTION WIDTH 18.6 % 11.7-14.4 H (BEAKER) (test code = 412) PLATELET COUNT (BEAKER) (test 323 K/CU MM 150-450 code = 756) MEAN PLATELET VOLUME (BEAKER) 9.0 fL 9.4-12.3 L (test code = 754) NUCLEATED RED BLOOD CELLS 0 /100 WBC 0-0 (BEAKER) (test code = 413) CBC (HEMOGRAM ONLY)2020-08-26 06:34:00 Test Item Value Reference Range Interpretation Comments WHITE BLOOD CELL COUNT (BEAKER) 9.0 K/ L 3.5-10.5 (test code = 775) RED BLOOD CELL COUNT (BEAKER) 5.35 M/ L 3.93-5.22 H (test code = 761) HEMOGLOBIN (BEAKER) (test code = 10.7 GM/DL 11.2-15.7 L 410) HEMATOCRIT (BEAKER) (test code = 39.4 % 34.1-44.9 411) MEAN CORPUSCULAR VOLUME (BEAKER) 73.6 fL 79.4-94.8 L (test code = 753) MEAN CORPUSCULAR HEMOGLOBIN 20.0 pg 25.6-32.2 L (BEAKER) (test code = 751) MEAN CORPUSCULAR HEMOGLOBIN CONC 27.2 GM/DL 32.2-35.5 L (BEAKER) (test code = 752) RED CELL DISTRIBUTION WIDTH 19.6 % 11.7-14.4 H (BEAKER) (test code = 412) PLATELET COUNT (BEAKER) (test 292 K/CU MM 150-450 code = 756) MEAN PLATELET VOLUME (BEAKER) 10.0 fL 9.4-12.3 (test code = 754) NUCLEATED RED BLOOD CELLS 0 /100 WBC 0-0 (BEAKER) (test code = 413) PROTHROMBIN [id number] 19:23:00 Test Item Value Reference Range Interpretation Comments PROTIME (BEAKER) 15.0 seconds 11.9-14.2 H (test code = 759) INR (BEAKER) (test 1.20 See_Comment [Automat ed message] code = 370) The system Native[employer] generated this result transmitted ref erence range: <=5.90. The reference range was not used to int erpret this result as normal/abnormal . RECOMMENDED COUMADIN/WARFARIN INR THERAPY RANGESSTANDARD DOSE: 2.0 - 3.0 Includes: PROPHYLAXIS forvenous thrombosis, systemic embolization; TREATMENT for venous thrombosis and/or pulmonary embolus.HIGH RISK: Target INR is 2.5-3.5 for patients with mechanical heart valves.CBC W/PLT COUNT & AUTO DIFFERENTIAL 2020-08-25 14:35:00 Test Item Value Reference Range Interpretation Comments WHITE BLOOD CELL COUNT (BEAKER) 9.0 K/ L 3.5-10.5 (test code = 775) RED BLOOD CELL COUNT (BEAKER) 4.73 M/ L 3.93-5.22 (test code = 761) HEMOGLOBIN (BEAKER) (test code = 9.6 GM/DL 11.2-15.7 L 410) HEMATOCRIT (BEAKER) (test code = 33.9 % 34.1-44.9 L 411) MEAN CORPUSCULAR VOLUME (BEAKER) 71.7 fL 79.4-94.8 L (test code = 753) MEAN CORPUSCULAR HEMOGLOBIN 20.3 pg 25.6-32.2 L (BEAKER) (test code = 751) MEAN CORPUSCULAR HEMOGLOBIN CONC 28.3 GM/DL 32.2-35.5 L (BEAKER) (test code = 752) RED CELL DISTRIBUTION WIDTH 18.7 % 11.7-14.4 H (BEAKER) (test code = 412) PLATELET COUNT (BEAKER) (test 363 K/CU MM 150-450 code = 756) MEAN PLATELET VOLUME (BEAKER) 9.3 fL 9.4-12.3 L (test code = 754) NUCLEATED RED BLOOD CELLS 0 /100 WBC 0-0 (BEAKER) (test code = 413) NEUTROPHILS RELATIVE PERCENT 66 % (BEAKER) (test code = 429) LYMPHOCYTES RELATIVE PERCENT 19 % (BEAKER) (test code = 430) MONOCYTES RELATIVE PERCENT 10 % (BEAKER) (test code = 431) EOSINOPHILS RELATIVE PERCENT 4 % (BEAKER) (test code = 432) BASOPHILS RELATIVE PERCENT 0 % (BEAKER) (test code = 437) NEUTROPHILS ABSOLUTE COUNT 5.91 K/ L 1.56-6.13 (BEAKER) (test code = 670) LYMPHOCYTES ABSOLUTE COUNT 1.66 K/ L 1.18-3.74 (BEAKER) (test code = 414) MONOCYTES ABSOLUTE COUNT (BEAKER) 0.89 K/ L 0.24-0.36 H (test code = 415) EOSINOPHILS ABSOLUTE COUNT 0.38 K/ L 0.04-0.36 H (BEAKER) (test code = 416) BASOPHILS ABSOLUTE COUNT (BEAKER) 0.04 K/ L 0.01-0.08 (test code = 417) IMMATURE GRANULOCYTES-RELATIVE 1 % 0-1 PERCENT (BEAKER) (test code = 2801) [id number] 07:38:00 Test Item Value Reference Range Interpretation Comments PTT (test code = 62.8 See_Comment H [Automated message] 59675-8) The system Native[employer] generated this result transmitted ref erence range: 22.5 - 3 6.0 seconds. The reference range was not used to int erpret this result as normal/abnormal . Lab Interpretation (test Abnormal code = 95393-3) [id number] Test Item Value Reference Range Interpretation Comments PARTIAL THROMBOPLASTIN TIME 62.8 seconds 22.5-36.0 H (BEAKER) (test code = 760) CBC (HEMOGRAM ONLY)2020-08-25 07:22:00 Test Item Value Reference Range Interpretation Comments WHITE BLOOD CELL COUNT (BEAKER) 8.6 K/ L 3.5-10.5 (test code = 775) RED BLOOD CELL COUNT (BEAKER) 4.42 M/ L 3.93-5.22 (test code = 761) HEMOGLOBIN (BEAKER) (test code = 8.9 GM/DL 11.2-15.7 L 410) HEMATOCRIT (BEAKER) (test code = 31.9 % 34.1-44.9 L 411) MEAN CORPUSCULAR VOLUME (BEAKER) 72.2 fL 79.4-94.8 L (test code = 753) MEAN CORPUSCULAR HEMOGLOBIN 20.1 pg 25.6-32.2 L (BEAKER) (test code = 751) MEAN CORPUSCULAR HEMOGLOBIN CONC 27.9 GM/DL 32.2-35.5 L (BEAKER) (test code = 752) RED CELL DISTRIBUTION WIDTH 18.6 % 11.7-14.4 H (BEAKER) (test code = 412) PLATELET COUNT (BEAKER) (test 365 K/CU MM 150-450 code = 756) MEAN PLATELET VOLUME (BEAKER) 9.6 fL 9.4-12.3 (test code = 754) NUCLEATED RED BLOOD CELLS 0 /100 WBC 0-0 (BEAKER) (test code = 413) [id number] 23:09:00 Test Item Value Reference Range Interpretation Comments PARTIAL THROMBOPLASTIN TIME 48.3 seconds 22.5-36.0 H (BEAKER) (test code = 760) [id number] 12:59:00 Test Item Value Reference Range Interpretation Comments PARTIAL THROMBOPLASTIN TIME 33.5 seconds 22.5-36.0 (BEAKER) (test code = 760) Basic Metabolic [id number] 06:56:00 Test Item Value Reference Range Interpretation Comments Sodium (test code = 140 meq/L 871-204 4337-2) Potassium (test 4.4 meq/L 3.5-5.1 code = 2823-3) Chloride (test code 100 meq/L 98-107 = 2075-0) CO2 (test code = 27 meq/L 22-29 2027-11) BUN (test code = 13 mg/dL 7-21 3094-0) Creatinine (test 0.81 mg/dL 0.57-1.25 code = 2160-0) Glucose (test code 101 mg/dL 70-105 = 2345-7) Calcium (test code 9.7 mg/dL 8.4-10.2 = 70917-1) EGFR (test code = 87 mL/min/1.73 [place] [address]-7) NOT ACCURATE CREATININE CLEARANCE IN PREDICTING GLOMERULAR FILTRATION RATE . ESTIMATED GFR I S NOT APPLICABLE FOR DIALYSIS PATIEN TS. JESSICA (test code = [address] Freight ID - JESSICA) BALA Hernandez [facility] METABOLIC [id number] 06:56:00 Test Item Value Reference Range Interpretation Comments SODIUM (BEAKER) 140 meq/L 136-145 (test code = 381) POTASSIUM (BEAKER) 4.4 meq/L 3.5-5.1 (test code = 379) CHLORIDE (BEAKER) 100 meq/L 98-107 (test code = 382) CO2 (BEAKER) (test 27 meq/L 22-29 code = 355) BLOOD UREA NITROGEN 13 mg/dL 7-21 (BEAKER) (test code = 354) CREATININE (BEAKER) 0.81 mg/dL 0.57-1.25 (test code = 358) GLUCOSE RANDOM 101 mg/dL 70-105 (BEAKER) (test code = 652) CALCIUM (BEAKER) 9.7 mg/dL 8.4-10.2 (test code = 697) EGFR (BEAKER) (test 87 mL/min/1.73 ESTIMA YUMIKO GFR IS code = 1092) sq m NOT ACCURATE CREATININE CLEARANCE IN PREDICTING GLOMERULAR FILTRATION RATE . ESTIMATED GFR I S NOT APPLICABLE FOR DIALYSIS PATIEN TS. [address] Freight ID - BALA MCBC (HEMOGRAM ONLY)2020-08-24 06:41:00 Test Item Value Reference Range Interpretation Comments WHITE BLOOD CELL COUNT (BEAKER) 8.6 K/ L 3.5-10.5 (test code = 775) RED BLOOD CELL COUNT (BEAKER) 5.23 M/ L 3.93-5.22 H (test code = 761) HEMOGLOBIN (BEAKER) (test code = 10.3 GM/DL 11.2-15.7 L 410) HEMATOCRIT (BEAKER) (test code = 38.3 % 34.1-44.9 411) MEAN CORPUSCULAR VOLUME (BEAKER) 73.2 fL 79.4-94.8 L (test code = 753) MEAN CORPUSCULAR HEMOGLOBIN 19.7 pg 25.6-32.2 L (BEAKER) (test code = 751) MEAN CORPUSCULAR HEMOGLOBIN CONC 26.9 GM/DL 32.2-35.5 L (BEAKER) (test code = 752) RED CELL DISTRIBUTION WIDTH 19.1 % 11.7-14.4 H (BEAKER) (test code = 412) PLATELET COUNT (BEAKER) (test 400 K/CU MM 150-450 code = 756) MEAN PLATELET VOLUME (BEAKER) 9.5 fL 9.4-12.3 (test code = 754) NUCLEATED RED BLOOD CELLS 0 /100 WBC 0-0 (BEAKER) (test code = 413) [id number] 06:32:00 Test Item Value Reference Range Interpretation Comments PARTIAL THROMBOPLASTIN TIME 34.7 seconds 22.5-36.0 (BEAKER) (test code = 760) [id number] 22:03:00 Test Item Value Reference Range Interpretation Comments PARTIAL THROMBOPLASTIN TIME 36.0 seconds 22.5-36.0 (BEAKER) (test code = 760) [id number] 14:36:00 Test Item Value Reference Range Interpretation Comments PARTIAL THROMBOPLASTIN TIME 30.6 seconds 22.5-36.0 (BEAKER) (test code = 760) CBC (HEMOGRAM ONLY)2020-08-23 14:30:00 Test Item Value Reference Range Interpretation Comments WHITE BLOOD CELL COUNT (BEAKER) 8.5 K/ L 3.5-10.5 (test code = 775) RED BLOOD CELL COUNT (BEAKER) 4.88 M/ L 3.93-5.22 (test code = 761) HEMOGLOBIN (BEAKER) (test code = 9.7 GM/DL 11.2-15.7 L 410) HEMATOCRIT (BEAKER) (test code = 35.4 % 34.1-44.9 411) MEAN CORPUSCULAR VOLUME (BEAKER) 72.5 fL 79.4-94.8 L (test code = 753) MEAN CORPUSCULAR HEMOGLOBIN 19.9 pg 25.6-32.2 L (BEAKER) (test code = 751) MEAN CORPUSCULAR HEMOGLOBIN CONC 27.4 GM/DL 32.2-35.5 L (BEAKER) (test code = 752) RED CELL DISTRIBUTION WIDTH 18.5 % 11.7-14.4 H (BEAKER) (test code = 412) PLATELET COUNT (BEAKER) (test 407 K/CU MM 150-450 code = 756) MEAN PLATELET VOLUME (BEAKER) 9.1 fL 9.4-12.3 L (test code = 754) NUCLEATED RED BLOOD CELLS 0 /100 WBC 0-0 (BEAKER) (test code = 413) BASIC METABOLIC [id number] 05:47:00 Test Item Value Reference Range Interpretation Comments SODIUM (BEAKER) 142 meq/L 136-145 (test code = 381) POTASSIUM (BEAKER) 4.1 meq/L 3.5-5.1 (test code = 379) CHLORIDE (BEAKER) 102 meq/L 98-107 (test code = 382) CO2 (BEAKER) (test 27 meq/L 22-29 code = 355) BLOOD UREA NITROGEN 13 mg/dL 7-21 (BEAKER) (test code = 354) CREATININE (BEAKER) 0.75 mg/dL 0.57-1.25 (test code = 358) GLUCOSE RANDOM 97 mg/dL 70-105 (BEAKER) (test code = 652) CALCIUM (BEAKER) 9.1 mg/dL 8.4-10.2 (test code = 697) EGFR (BEAKER) (test 96 mL/min/1.73 ESTIMA YUMIKO GFR IS code = 1092) sq m NOT ACCURATE CREATININE CLEARANCE IN PREDICTING GLOMERULAR FILTRATION RATE . ESTIMATED GFR I S NOT APPLICABLE FOR DIALYSIS PATIEN TS. [address] Freight ID - BAL [facility] (HEMOGRAM ONLY)2020-08-23 05:19:00 Test Item Value Reference Range Interpretation Comments WHITE BLOOD CELL COUNT (BEAKER) 8.1 K/ L 3.5-10.5 (test code = 775) RED BLOOD CELL COUNT (BEAKER) 4.62 M/ L 3.93-5.22 (test code = 761) HEMOGLOBIN (BEAKER) (test code = 9.3 GM/DL 11.2-15.7 L 410) HEMATOCRIT (BEAKER) (test code = 33.4 % 34.1-44.9 L 411) MEAN CORPUSCULAR VOLUME (BEAKER) 72.3 fL 79.4-94.8 L (test code = 753) MEAN CORPUSCULAR HEMOGLOBIN 20.1 pg 25.6-32.2 L (BEAKER) (test code = 751) MEAN CORPUSCULAR HEMOGLOBIN CONC 27.8 GM/DL 32.2-35.5 L (BEAKER) (test code = 752) RED CELL DISTRIBUTION WIDTH 18.6 % 11.7-14.4 H (BEAKER) (test code = 412) PLATELET COUNT (BEAKER) (test 384 K/CU MM 150-450 code = 756) MEAN PLATELET VOLUME (BEAKER) 9.4 fL 9.4-12.3 (test code = 754) NUCLEATED RED BLOOD CELLS 0 /100 WBC 0-0 (BEAKER) (test code = 413) U/S, EXTREMITY, LOWER, LEFT (NON-VASCULAR) [id number] 15:15:00Please obtain biopsy of inguinal mass. Pending discharge Reason for exam:->Large left inguinal mass / [facility]adenopathy [facility] 1960 Sex: FFINAL REPORT EXAM: U/S, EXTREMITY, LOWER, LEFT (NON-VASCULAR) LIMITED DATE: 08/21/2020 3:06 PM INDICATION: Large left inguinal mass / lymphadenopathyCOMPARISON: None TECHNIQUE: Transverse and longitudinal nur scale and color doppler sonographic images of the left groin were obtained for a potential image guided procedure. 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 Normal appearing enlarged left inguinal lymph nodes are noted measuring up to 4.9 x 2.0 cm in short axis. Intact fatty juan are noted. IMPRESSION:Enlarged left inguinal lymph nodes are noted, similar to recent CT scan. Findings are probably related to the known venous obstruction. If lymphadenopathy does not improve with relief of venous obstruction can consider ultrasound-guided biopsy if clinically indicated.The known complex probable retroperitoneal hematoma is not visualized. Signed: Rick Garcia MDRcarylort Verified Date/Time: 08/22/2020 15:15:14 Reading Location: [facility] C0[facility] Consult Reading Room US extremity non-vascular limited [id number] 15:15:00 Interface, External Ris In - 08/22/2020 3:17 PM CDTFINAL REPORT EXAM: U/S, EXTREMITY, LOWER, LEFT (NON-VASCULAR) LIMITEDDATE: 08/21/2020 3:06 PM INDICATION: Large left inguinal mass / lymphadenopathyCOMPARISON: None TECHNIQUE: Transverse and longitudinal nur scale and color doppler sonographic images of the left groin were obtained for a potential image guided procedure. 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 Normal appearing enlarged left inguinal lymph nodes are noted measuring up to 4.9 x 2.0 cm in short axis. Intact fatty juan are noted. IMPRESSION:Enlargedleft inguinal lymph nodes are noted, similar to recent CT scan. Findings are probably related to theknown venous obstruction. If lymphadenopathy does not improve with relief of venous obstruction can consider ultrasound-guided biopsy if clinically indicated.The known complex probable retroperitoneal hematoma is not visualized. Signed: Rick Garcia MDRcarylort Verified Date/Time: 08/22/2020 15:15:14 Reading Location: [facility] C013 Consult Reading Room Electronically signed by: RICK GARCIA MDon 08/22/2020 03:15 [facility] [id number] 06:22:00 Test Item Value Reference Range Interpretation Comments SODIUM (BEAKER) 142 meq/L 136-145 (test code = 381) POTASSIUM (BEAKER) 3.9 meq/L 3.5-5.1 (test code = 379) CHLORIDE (BEAKER) 103 meq/L 98-107 (test code = 382) CO2 (BEAKER) (test 28 meq/L 22-29 code = 355) BLOOD UREA NITROGEN 14 mg/dL 7-21 (BEAKER) (test code = 354) CREATININE (BEAKER) 0.74 mg/dL 0.57-1.25 (test code = 358) GLUCOSE RANDOM 99 mg/dL 70-105 (BEAKER) (test code = 652) CALCIUM (BEAKER) 8.7 mg/dL 8.4-10.2 (test code = 697) EGFR (BEAKER) (test 97 mL/min/1.73 ESTIMA YUMIKO GFR IS code = 1092) sq m NOT ACCURATE CREATININE CLEARANCE IN PREDICTING GLOMERULAR FILTRATION RATE . ESTIMATED GFR I S NOT APPLICABLE FOR DIALYSIS PATIEN TS. [address] Freight ID - [facility] (HEMOGRAM ONLY)2020-08-22 05:57:00 Test Item Value Reference Range Interpretation Comments WHITE BLOOD CELL COUNT (BEAKER) 8.4 K/ L 3.5-10.5 (test code = 775) RED BLOOD CELL COUNT (BEAKER) 4.40 M/ L 3.93-5.22 (test code = 761) HEMOGLOBIN (BEAKER) (test code = 8.8 GM/DL 11.2-15.7 L 410) HEMATOCRIT (BEAKER) (test code = 31.4 % 34.1-44.9 L 411) MEAN CORPUSCULAR VOLUME (BEAKER) 71.4 fL 79.4-94.8 L (test code = 753) MEAN CORPUSCULAR HEMOGLOBIN 20.0 pg 25.6-32.2 L (BEAKER) (test code = 751) MEAN CORPUSCULAR HEMOGLOBIN CONC 28.0 GM/DL 32.2-35.5 L (BEAKER) (test code = 752) RED CELL DISTRIBUTION WIDTH 18.6 % 11.7-14.4 H (BEAKER) (test code = 412) PLATELET COUNT (BEAKER) (test 347 K/CU MM 150-450 code = 756) MEAN PLATELET VOLUME (BEAKER) 9.1 fL 9.4-12.3 L (test code = 754) NUCLEATED RED BLOOD CELLS 0 /100 WBC 0-0 (BEAKER) (test code = 413) COMPREHENSIVE METABOLIC [id number] 07:02:00 Test Item Value Reference Range Interpretation Comments TOTAL PROTEIN 8.0 gm/dL 6.0-8.3 (BEAKER) (test code = 770) ALBUMIN (BEAKER) 4.0 g/dL 3.5-5.0 (test code = 1145) ALKALINE PHOSPHATASE 101 U/L 40-150 (BEAKER) (test code = 346) BILIRUBIN TOTAL 0.3 mg/dL 0.2-1.2 (BEAKER) (test code = 377) SODIUM (BEAKER) (test 139 meq/L 136-145 code = 381) POTASSIUM (BEAKER) 4.2 meq/L 3.5-5.1 (test code = 379) CHLORIDE (BEAKER) 100 meq/L 98-107 (test code = 382) CO2 (BEAKER) (test 29 meq/L 22-29 code = 355) BLOOD UREA NITROGEN 13 mg/dL 7-21 (BEAKER) (test code = 354) CREATININE (BEAKER) 0.76 mg/dL 0.57-1.25 (test code = 358) GLUCOSE RANDOM 123 mg/dL 70-105 H (BEAKER) (test code = 652) CALCIUM (BEAKER) 9.2 mg/dL 8.4-10.2 (test code = 697) AST (SGOT) (BEAKER) 10 U/L 5-34 (test code = 353) ALT (SGPT) (BEAKER) 9 U/L 6-55 (test code = 347) EGFR (BEAKER) (test 94 mL/min/1.73 ESTIMA YUMIKO GFR IS code = 1092) sq m NOT ACCURATE CREATININE CLEARANCE IN PREDICTING GLOMERULAR FILTRATION RATE . ESTIMATED GFR I S NOT APPLICABLE FOR DIALYSIS PATIEN TS. [address] Freight ID - [facility] MPROTHROMBIN [id number] 06:42:00 Test Item Value Reference Range Interpretation Comments PROTIME (BEAKER) 13.7 seconds 11.9-14.2 (test code = 759) INR (BEAKER) (test 1.08 See_Comment [Automat ed message] code = 370) The system [employer] generated this result transmitted ref erence range: <=5.90. The reference range was not used to int erpret this result as normal/abnormal . RECOMMENDED COUMADIN/WARFARIN INR THERAPY RANGESSTANDARD DOSE: 2.0 - 3.0 Includes: PROPHYLAXIS forvenous thrombosis, systemic embolization; TREATMENT for venous thrombosis and/or pulmonary embolus.HIGH RISK: Target INR is 2.5-3.5 for patients with mechanical heart valves.CBC (HEMOGRAM ONLY)2020-08-21 06:42:00 Test Item Value Reference Range Interpretation Comments WHITE BLOOD CELL COUNT (BEAKER) 12.7 K/ L 3.5-10.5 H (test code = 775) RED BLOOD CELL COUNT (BEAKER) 4.29 M/ L 3.93-5.22 (test code = 761) HEMOGLOBIN (BEAKER) (test code = 8.5 GM/DL 11.2-15.7 L 410) HEMATOCRIT (BEAKER) (test code = 30.5 % 34.1-44.9 L 411) MEAN CORPUSCULAR VOLUME (BEAKER) 71.1 fL 79.4-94.8 L (test code = 753) MEAN CORPUSCULAR HEMOGLOBIN 19.8 pg 25.6-32.2 L (BEAKER) (test code = 751) MEAN CORPUSCULAR HEMOGLOBIN CONC 27.9 GM/DL 32.2-35.5 L (BEAKER) (test code = 752) RED CELL DISTRIBUTION WIDTH 18.5 % 11.7-14.4 H (BEAKER) (test code = 412) PLATELET COUNT (BEAKER) (test 392 K/CU MM 150-450 code = 756) MEAN PLATELET VOLUME (BEAKER) 9.4 fL 9.4-12.3 (test code = 754) NUCLEATED RED BLOOD CELLS 0 /100 WBC 0-0 (BEAKER) (test code = 413) RAD, SPINE, LUMBAR, 2 OR 3 [id number] 20:22:00Reason for exam:->low back pain, [facility] : 1960 Sex: FFINAL REPORT RAD, SPINE, LUMBAR, 2 OR 3 VIEWS, RAD, HIP, 2-3 VIEWS, L EFT, TO INCL PELVIS WHEN PERFORMED, RAD, KNEE, 3 VIEWS, LEFT CLINICAL HISTORY: low back pain, fall FINDINGS: 2 views of the lumbar spine are submitted for review. 3 views of the left knee and 2 views of the left hip with AP view of the pelvis. 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 Lefthip mild to moderate degenerative changes without evidence of acute osseous fracture or traumatic malalignment. Lumbar lumbar vertebral bodies maintain normal height and alignment. Intervertebral disc spaces are preserved. There is mild to moderate multilevel lumbar spine degenerative changes. No destructive osseous lesion or acute osseous fracture. There is contrast within the renal collecting system and urinary bladder. Bowel gas pattern is nonspecific. Left knee: Moderate joint space narrowing ofthe medial compartment and patellofemoral compartment and scattered marginal osteophytes. No significant joint effusion. No acute osseous fracture or traumatic malalignment. Large body habitus. IMPRESSION:No acute osseous abnormality of the lumbar spine, left hip and left knee. Osseous degenerative changes discussed above. Signed: Prateek Fung MDReport Verified Date/Time: 08/20/2020 20:22:11 RAD, KNEE, 3 VIEWS, LEFT 2020-08-20 20:22:00Reason for exam:->knee pain, fall [facility] NEELAM : 1960 Sex: FFINAL REPORT RAD, SPINE, LUMBAR, 2 OR 3 VIEWS, RAD, HIP, 2-3 VIEWS, L EFT, TO INCL PELVIS WHEN PERFORMED, RAD, KNEE, 3 VIEWS, LEFT CLINICAL HISTORY: low back pain, fall FINDINGS: 2 views of the lumbar spine are submitted for review. 3 views of the left knee and 2 views of the left hip with AP view of the pelvis. 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 Lefthip mild to moderate degenerative changes without evidence of acute osseous fracture or traumatic malalignment. Lumbar lumbar vertebral bodies maintain normal height and alignment. Intervertebral disc spaces are preserved. There is mild to moderate multilevel lumbar spine degenerative changes. No destructive osseous lesion or acute osseous fracture. There is contrast within the renal collecting system and urinary bladder. Bowel gas pattern is nonspecific. Left knee: Moderate joint space narrowing ofthe medial compartment and patellofemoral compartment and scattered marginal osteophytes. No significant joint effusion. No acute osseous fracture or traumatic malalignment. Large body habitus. IMPRESSION:No acute osseous abnormality of the lumbar spine, left hip and left knee. Osseous degenerative changes discussed above. Signed: Prateek Fung MDReport Verified Date/Time: 08/20/2020 20:22:11 RAD, HIP, 2-3 VIEWS, LEFT, TO INCL PELVIS WHEN [id number] 20:22:00Reason for exam:->hip pain, fall [facility] NEELAM : 1960 Sex: FFINAL REPORT RAD, SPINE, LUMBAR, 2 OR 3 VIEWS, RAD, HIP, 2-3 VIEWS, L EFT, TO INCL PELVIS WHEN PERFORMED, RAD, KNEE, 3 VIEWS, LEFT CLINICAL HISTORY: low back pain, fall FINDINGS: 2 views of the lumbar spine are submitted for review. 3 views of the left knee and 2 views of the left hip with AP view of the pelvis. 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 Lefthip mild to moderate degenerative changes without evidence of acute osseous fracture or traumatic malalignment. Lumbar lumbar vertebral bodies maintain normal height and alignment. Intervertebral disc spaces are preserved. There is mild to moderate multilevel lumbar spine degenerative changes. No destructive osseous lesion or acute osseous fracture. There is contrast within the renal collecting system and urinary bladder. Bowel gas pattern is nonspecific. Left knee: Moderate joint space narrowing ofthe medial compartment and patellofemoral compartment and scattered marginal osteophytes. No significant joint effusion. No acute osseous fracture or traumatic malalignment. Large body habitus. IMPRESSION:No acute osseous abnormality of the lumbar spine, left hip and left knee. Osseous degenerative changes discussed above. Signed: Prateek Fung MDReport Verified Date/Time: 08/20/2020 20:22:11 XR hip 2 views [id number] 20:22:00Interface, External Ris In - 08/20/2020 8:24 PM CDTFINAL REPORT RAD, SPINE, LUMBAR, 2 OR 3 VIEWS, RAD, HIP, 2-3 VIEWS, LEFT, TO INCL PELVIS WHEN PERFORMED, RAD, KNEE, 3 VIEWS, LEFT CLINICAL HISTORY: low back pain, fall FINDINGS: 2 views of the lumbar spine are submitted for review. 3 views of the left knee and 2 views of the left hip with AP view of the pelvis. 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 Left hip mild to moderate degenerative changes without evidence of acute osseous fracture or traumatic malalignment. Lumbar lumbar vertebral bodies maintain normalheight and alignment. Intervertebral disc spaces are preserved. There is mild to moderate multilevellumbar spine degenerative changes. No destructive osseous lesion or acute osseous fracture. There iscontrast within the renal collecting system and urinary bladder. Bowel gas pattern is nonspecific. Left knee: Moderate joint space narrowing of the medial compartment and patellofemoral compartment andscattered marginal osteophytes. No significant joint effusion. No acute osseous fracture or traumatic malalignment. Large body habitus. IMPRESSION:No acute osseous abnormality of the lumbar spine, lefthip and left knee. Osseous degenerative changes discussed above. Signed: Prateek Fung MDReport Verified Date/Time: 08/20/2020 20:22:11 [facility] HospitalXR [facility] lumbar 2 or 3 [id number] 20:22:00Interface, External Ris In - 08/20/2020 8:24 PM CDTFINAL REPORT RAD, SPINE, LUMBAR, 2 OR 3 VIEWS, RAD, HIP, 2-3 VIEWS, LEFT, TO INCL PELVIS WHEN PERFORMED, RAD, KNEE, 3 VIEWS, LEFT CLINICAL HISTORY: low back pain, fall FINDINGS: 2 views of the lumbar spine are submitted for review. 3 views of the left knee and 2 views of the left hip with AP view of the pelvis. 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 Left hip mild to moderate degenerative changes without evidence of acute osseous fracture or traumatic malalignment. Lumbar lumbar vertebral bodies maintain normalheight and alignment. Intervertebral disc spaces are preserved. There is mild to moderate multilevel lumbar spine degenerative changes. No destructive osseous lesion or acute osseous fracture. There iscontrast within the renal collecting system and urinary bladder. Bowel gas pattern is nonspecific. Left knee: Moderate joint space narrowing of the medial compartment and patellofemoral compartment and scattered marginal osteophytes. No significant joint effusion. No acute osseous fracture or traumatic malalignment. Large body habitus. IMPRESSION:No acute osseous abnormality of the lumbar spine, lefthip and left knee. Osseous degenerative changes discussed above. Signed: Prateek Fung MDReport Verified Date/Time: 08/20/2020 20:22:11 [facility]XR [facility] 3 views left 2020-08-20 20:22:00Interface, External Ris In - 08/20/2020 8:24 PM CDTFINAL REPORT RAD, SPINE, LUMBAR, 2 OR 3 VIEWS, RAD, HIP, 2-3 VIEWS, LEFT, TO INCL PELVIS WHEN PERFORMED, RAD, KNEE, 3 VIEWS, LEFT CLINICAL HISTORY: low back pain, fall FINDINGS: 2 views of the lumbar spine are submitted for review. 3 views of the left knee and 2 views of the left hip with AP view of the pelvis. 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 Left hip mild to moderate degenerative changes without evidence of acute osseous fracture or traumatic malalignment. Lumbar lumbar vertebral bodies maintain normalheight and alignment. Intervertebral disc spaces are preserved. There is mild to moderate multilevellumbar spine degenerative changes. No destructive osseous lesion or acute osseous fracture. There is contrast within the renal collecting system and urinary bladder. Bowel gas pattern is nonspecific. Left knee: Moderate joint space narrowing of the medial compartment and patellofemoral compartment andscattered marginal osteophytes. No significant joint effusion. No acute osseous fracture or traumatic malalignment. Large body habitus. IMPRESSION:No acute osseous abnormality of the lumbar spine, lefthip and left knee. Osseous degenerative changes discussed above. Signed: Prateek Fung MDReport Verified Date/Time: 08/20/2020 20:22:11 [facility] HospitalLactate dehydrogenase (LDH)2020-08-20 15:47:00 Test Item Value Reference Range Interpretation Comments LDH (test code = 2532-0) 228 U/L 125-220 H JESSICA (test code = JESSICA) [address] Freight ID - DB Lab Interpretation (test Abnormal code = 27735-8) [facility] Center[facility] 15:47:00 Test Item Value Reference Range Interpretation Comments Magnesium (test code = 2.2 mg/dL 1.6-2.6 84135-6) JESSICA (test code = JESSICA) [address] Freight ID - DB Lab Interpretation (test Normal code = 34277-4) [facility] CenterPhosphorus2021-[facility] 15:47:00 Test Item Value Reference Range Interpretation Comments Phosphorus (test code = 3.1 mg/dL 2.3-4.7 2777-1) JESSICA (test code = JESSICA) [address] Freight ID - DB Lab Interpretation (test Normal code = 24834-2) [facility] CenterUric [id number] 15:47:00 Test Item Value Reference Range Interpretation Comments Uric Acid (test code = 5.1 mg/dL 2.6-7.2 3084-1) JESSICA (test code = JESSICA) [address] Freight ID - DB Lab Interpretation (test Normal code = 17285-5) [facility] CenterCOMPREHENSIVE METABOLIC [id number] 15:47:00 Test Item Value Reference Range Interpretation Comments TOTAL PROTEIN 8.3 gm/dL 6.0-8.3 (BEAKER) (test code = 770) ALBUMIN (BEAKER) 4.0 g/dL 3.5-5.0 (test code = 1145) ALKALINE PHOSPHATASE 112 U/L 40-150 (BEAKER) (test code = 346) BILIRUBIN TOTAL 0.4 mg/dL 0.2-1.2 (BEAKER) (test code = 377) SODIUM (BEAKER) (test 139 meq/L 136-145 code = 381) POTASSIUM (BEAKER) 4.4 meq/L 3.5-5.1 (test code = 379) CHLORIDE (BEAKER) 101 meq/L 98-107 (test code = 382) CO2 (BEAKER) (test 26 meq/L 22-29 code = 355) BLOOD UREA NITROGEN 11 mg/dL 7-21 (BEAKER) (test code = 354) CREATININE (BEAKER) 0.79 mg/dL 0.57-1.25 (test code = 358) GLUCOSE RANDOM 152 mg/dL 70-105 H (BEAKER) (test code = 652) CALCIUM (BEAKER) 9.1 mg/dL 8.4-10.2 (test code = 697) AST (SGOT) (BEAKER) 13 U/L 5-34 (test code = 353) ALT (SGPT) (BEAKER) 11 U/L 6-55 (test code = 347) EGFR (BEAKER) (test 90 mL/min/1.73 ESTIMA YUMIKO GFR IS code = 1092) sq m NOT ACCURATE CREATININE CLEARANCE IN PREDICTING GLOMERULAR FILTRATION RATE . ESTIMATED GFR I S NOT APPLICABLE FOR DIALYSIS PATIEN TS. [address] Freight ID - [id number] 15:47:00 Test Item Value Reference Range Interpretation Comments MAGNESIUM (BEAKER) (test code = 2.2 mg/dL 1.6-2.6 627) [address] Freight ID - [id number] 15:47:00 Test Item Value Reference Range Interpretation Comments PHOSPHORUS (BEAKER) (test code = 3.1 mg/dL 2.3-4.7 604) [address] Freight ID - DBURIC [id number] 15:47:00 Test Item Value Reference Range Interpretation Comments URIC ACID (BEAKER) (test code = 5.1 mg/dL 2.6-7.2 773) [address] Freight ID - DBLACTATE DEHYDROGENASE (LDH)2020-08-20 15:47:00 Test Item Value Reference Range Interpretation Comments LACTATE DEHYDROGENASE (BEAKER) (test 228 U/L 125-220 H code = 635) [address] Freight ID - DBCBC W/PLT COUNT & AUTO [id number] 15:26:00 Test Item Value Reference Range Interpretation Comments WHITE BLOOD CELL COUNT (BEAKER) 9.5 K/ L 3.5-10.5 (test code = 775) RED BLOOD CELL COUNT (BEAKER) 4.79 M/ L 3.93-5.22 (test code = 761) HEMOGLOBIN (BEAKER) (test code = 9.5 GM/DL 11.2-15.7 L 410) HEMATOCRIT (BEAKER) (test code = 33.3 % 34.1-44.9 L 411) MEAN CORPUSCULAR VOLUME (BEAKER) 69.5 fL 79.4-94.8 L (test code = 753) MEAN CORPUSCULAR HEMOGLOBIN 19.8 pg 25.6-32.2 L (BEAKER) (test code = 751) MEAN CORPUSCULAR HEMOGLOBIN CONC 28.5 GM/DL 32.2-35.5 L (BEAKER) (test code = 752) RED CELL DISTRIBUTION WIDTH 18.6 % 11.7-14.4 H (BEAKER) (test code = 412) PLATELET COUNT (BEAKER) (test 393 K/CU MM 150-450 code = 756) MEAN PLATELET VOLUME (BEAKER) 9.4 fL 9.4-12.3 (test code = 754) NUCLEATED RED BLOOD CELLS 0 /100 WBC 0-0 (BEAKER) (test code = 413) NEUTROPHILS RELATIVE PERCENT 89 % (BEAKER) (test code = 429) LYMPHOCYTES RELATIVE PERCENT 9 % (BEAKER) (test code = 430) MONOCYTES RELATIVE PERCENT 1 % (BEAKER) (test code = 431) EOSINOPHILS RELATIVE PERCENT 0 % (BEAKER) (test code = 432) BASOPHILS RELATIVE PERCENT 0 % (BEAKER) (test code = 437) NEUTROPHILS ABSOLUTE COUNT 8.45 K/ L 1.56-6.13 H (BEAKER) (test code = 670) LYMPHOCYTES ABSOLUTE COUNT 0.82 K/ L 1.18-3.74 L (BEAKER) (test code = 414) MONOCYTES ABSOLUTE COUNT (BEAKER) 0.09 K/ L 0.24-0.36 L (test code = 415) EOSINOPHILS ABSOLUTE COUNT 0.03 K/ L 0.04-0.36 L (BEAKER) (test code = 416) BASOPHILS ABSOLUTE COUNT (BEAKER) 0.02 K/ L 0.01-0.08 (test code = 417) IMMATURE GRANULOCYTES-RELATIVE 1 % 0-1 PERCENT (BEAKER) (test code = 2801) AFB CULTURE + [id number] 17:40:00 Test Item Value Reference Range Interpretation Comments CULTURE (BEAKER) (test No acid-fast bacilli code = 1095) isolated in 42 days AFB SMEAR (BEAKER) No acid fast bacilli (test code = 994) seen AFB CULTURE + [id number] 16:47:00 Test Item Value Reference Range Interpretation Comments CULTURE (BEAKER) (test No acid-fast bacilli code = 1095) isolated in 42 days AFB SMEAR (BEAKER) No acid fast bacilli (test code = 994) seen FUNGUS CULTURE + [id number] 17:06:00 Test Item Value Reference Range Interpretation Comments CULTURE (BEAKER) (test No fungus isolated in code = 1095) 28 days FUNGUS SMEAR (BEAKER) No fungi seen (test code = 1406) FUNGUS CULTURE + [id number] 20:59:00 Test Item Value Reference Range Interpretation Comments CULTURE (BEAKER) (test No fungus isolated in code = 1095) 28 days FUNGUS SMEAR (BEAKER) No fungi seen (test code = 1406) POCT-GLUCOSE [id number] 17:00:00 Test Item Value Reference Range Interpretation Comments POC-GLUCOSE METER 193 mg/dL 70-110 H TESTED AT [facility] [address] (BEAKER) (test code [facility] = [address]38) [place] [address] POCT-GLUCOSE [id number] 11:50:00 Test Item Value Reference Range Interpretation Comments POC-GLUCOSE METER 185 mg/dL 70-110 H TESTED AT [facility] [address] (BEAKER) (test code [facility] = 1538) [place] [address] CBC W/PLT COUNT & AUTO [id number] 09:22:00 Test Item Value Reference Range Interpretation [...] (BEAKER) (test code = 2801) BASIC METABOLIC [id number] 09:21:00 Test Item Value Reference Range Interpretation [...] NOT APPLICABLE FOR DIALYSIS PATIEN TS. C-REACTIVE [id number] 09:21:00 Test Item Value Reference Range Interpretation Comments C-REACTIVE PROTEIN (BEAKER) (test 2.31 mg/dL 0.00-0.50 H code = 676) HEPATIC FUNCTION [id number] 09:20:00 Test Item Value Reference Range Interpretation [...] code = 47 U/L 6-50 347) POCT-GLUCOSE [id number] 06:53:00 Test Item Value Reference Range Interpretation Comments POC-GLUCOSE METER 102 mg/dL 70-110 TESTED AT [facility] [address] (BEAKER) (test code [facility] = 1538) [place] [address] POCT-GLUCOSE [id number] 21:32:00 Test Item Value Reference Range Interpretation Comments POC-GLUCOSE METER 212 mg/dL 70-110 H TESTED AT [facility] [address] (BEAKER) (test code [facility] = 1538) [place] [address] POCT-GLUCOSE [id number] 16:26:00 Test Item Value Reference Range Interpretation Comments POC-GLUCOSE METER 170 mg/dL 70-110 H TESTED AT [facility] [address] (BEAKER) (test code [employer] (Droppy) [facility] = 1538) [place] [address] POCT-GLUCOSE [id number] 05:53:00 Test Item Value Reference Range Interpretation Comments POC-GLUCOSE METER 90 mg/dL 70-110 TESTED AT [facility] [address] (BEAKER) (test code = [facility] 1538) [place] [address] POCT-GLUCOSE [id number] 21:52:00 Test Item Value Reference Range Interpretation Comments POC-GLUCOSE METER 130 mg/dL 70-110 H TESTED AT [facility] [address] (BEAKER) (test code LUC[facility] = 1538) [place] [address] POCT-GLUCOSE [id number] 17:16:00 Test Item Value Reference Range Interpretation Comments POC-GLUCOSE METER 177 mg/dL 70-110 H TESTED AT [facility] [address] (BEAKER) (test code [facility] = 1538) [place] [address] [id number] 16:02:00 Test Item Value Reference Range Interpretation Comments POTASSIUM (BEAKER) (test code = 3.9 meq/L 3.5-5.5 379) POCT-GLUCOSE [id number] 12:10:00 Test Item Value Reference Range Interpretation Comments POC-GLUCOSE METER 176 mg/dL 70-110 H TESTED AT [facility] [address] (BEAKER) (test code [facility] = 1538) [place] [address] POCT-GLUCOSE [id number] 05:57:00 Test Item Value Reference Range Interpretation Comments POC-GLUCOSE METER 113 mg/dL 70-110 H TESTED AT [facility] [address] (BEAKER) (test code [facility] = 1538) [place] [address] POCT-GLUCOSE [id number] 21:53:00 Test Item Value Reference Range Interpretation Comments POC-GLUCOSE METER 160 mg/dL 70-110 H TESTED AT [facility] [address] (BEAKER) (test code [facility] = 1538) [place] [address] POCT-GLUCOSE [id number] 16:49:00 Test Item Value Reference Range Interpretation Comments POC-GLUCOSE METER 158 mg/dL 70-110 H TESTED AT [facility] [address] (BEAKER) (test code [facility] = 1538) [place] [address] POCT-GLUCOSE [id number] 12:14:00 Test Item Value Reference Range Interpretation Comments POC-GLUCOSE METER 162 mg/dL 70-110 H TESTED AT [facility] [address] (BEAKER) (test code [facility] = 1538) [place] [address] BASIC METABOLIC [id number] 04:57:00 Test Item Value Reference Range Interpretation [...] PATIEN TS. CBC W/PLT COUNT & AUTO [id number] 04:28:00 Test Item Value Reference Range Interpretation [...] PERCENT (BEAKER) (test code = 2801) POCT-GLUCOSE [id number] 20:44:00 Test Item Value Reference Range Interpretation Comments POC-GLUCOSE METER 168 mg/dL 70-110 H TESTED AT [facility] [address] (BEAKER) (test code [facility] = 1538) [place] [address] POCT-GLUCOSE [id number] 16:10:00 Test Item Value Reference Range Interpretation Comments POC-GLUCOSE METER 228 mg/dL 70-110 H TESTED AT [facility] [address] (BEAKER) (test code [facility] = 1538) [place] [address] POCT-GLUCOSE [id number] 13:15:00 Test Item Value Reference Range Interpretation Comments POC-GLUCOSE METER 182 mg/dL 70-110 H TESTED AT [facility] [address] (BEAKER) (test code [facility] = 1538) [place] [address] POCT-GLUCOSE [id number] 06:57:00 Test Item Value Reference Range Interpretation Comments POC-GLUCOSE METER 153 mg/dL 70-110 H TESTED AT [facility] [address] (BEAKER) (test code [facility] = 1538) [place] [address] POCT-GLUCOSE [id number] 21:27:00 Test Item Value Reference Range Interpretation Comments POC-GLUCOSE METER 146 mg/dL 70-110 H TESTED AT [facility] [address] ([facility]) (test code LUCIA [facility] = 1538) [place] [address] POCT-GLUCOSE [id number] 17:17:00 Test Item Value Reference Range Interpretation Comments POC-GLUCOSE METER 134 mg/dL 70-110 H TESTED AT [facility] [address] ([facility]) (test code LUCIA CAMAR[facility] = 1538) [place] [address] POCT-GLUCOSE [id number] 13:49:00 Test Item Value Reference Range Interpretation Comments POC-GLUCOSE METER 177 mg/dL 70-110 H TESTED AT [facility] [address] ([facility]) (test code LUCIA Ba[place]a [facility] = 1538) [place] [address] POCT-GLUCOSE [id number] 05:34:00 Test Item Value Reference Range Interpretation Comments POC-GLUCOSE METER 118 mg/dL 70-110 H TESTED AT [facility] [address] ([facility]) (test code LUCIA CAMAR[facility] = 1538) [place] [address] POCT-GLUCOSE [id number] 21:14:00 Test Item Value Reference Range Interpretation Comments POC-GLUCOSE METER 149 mg/dL 70-110 H TESTED AT [facility] [address] ([facility]) (test code LUCIA Ba[place]a [facility] = 1538) [place] [address] POCT-GLUCOSE [id number] 17:44:00 Test Item Value Reference Range Interpretation Comments POC-GLUCOSE METER 132 mg/dL 70-110 H TESTED AT [facility] [address] [facility] (test code LUCIA CAMARGO [facility] = 1538) [place] [address] POCT-GLUCOSE [id number] 12:21:00 Test Item Value Reference Range Interpretation Comments POC-GLUCOSE METER 168 mg/dL 70-110 H TESTED AT [facility] [address] [facility] (test code LUCIA CAMARGO [facility] = 1538) [place] [address] [id number] 05:19:00 Test Item Value Reference Range Interpretation Comments PARTIAL THROMBOPLASTIN TIME 84.3 seconds 23.2-36.1 H (BEAKER) (test code = 760) POCT-GLUCOSE [id number] 20:50:00 Test Item Value Reference Range Interpretation Comments POC-GLUCOSE METER 147 mg/dL 70-110 H TESTED AT [facility] [address] (BEAKER) (test code [facility] = 1538) [place] [address] POCT-GLUCOSE [id number] 17:19:00 Test Item Value Reference Range Interpretation Comments POC-GLUCOSE METER 238 mg/dL 70-110 H TESTED AT [facility] [address] (BEAKER) (test code [facility] = 1538) [place] [address] [id number] 15:09:00 Test Item Value Reference Range Interpretation Comments PARTIAL THROMBOPLASTIN TIME 74.8 seconds 23.2-36.1 H (BEAKER) (test code = 760) POCT-GLUCOSE [id number] 11:57:00 Test Item Value Reference Range Interpretation Comments POC-GLUCOSE METER 146 mg/dL 70-110 H TESTED AT [facility] [address] (BEAKER) (test code [facility] = 1538) [place] [address] POCT-GLUCOSE [id number] 05:37:00 Test Item Value Reference Range Interpretation Comments POC-GLUCOSE METER 139 mg/dL 70-110 H TESTED AT [facility] [address] (BEAKER) (test code [facility] = 1538) [place] [address] BASIC METABOLIC [id number] 04:04:00 Test Item Value Reference Range Interpretation [...] 697) EGFR (BEAKER) (test 92 mL/min/1.73 ESTIMA YUMIKO GFR IS code = 1092) sq m NOT ACCURATE CREATININE CLEARANCE IN PREDICTING GLOMERULAR FILTRATION RATE . ESTIMATED GFR I S NOT APPLICABLE FOR DIALYSIS PATIEN [id number] 04:02:00 Test Item Value Reference Range Interpretation Comments PARTIAL THROMBOPLASTIN TIME 76.5 seconds 23.2-36.1 H (BEAKER) (test code = 760) CBC W/PLT COUNT & AUTO [id number] 03:41:00 Test Item Value Reference Range Interpretation [...] PERCENT (BEAKER) (test code = 2801) POCT-GLUCOSE [id number] 22:12:00 Test Item Value Reference Range Interpretation Comments POC-GLUCOSE METER 247 mg/dL 70-110 H TESTED AT [facility] [address] (BEAKER) (test code [facility] = 1538) [place] [address] [id number] 21:11:00 Test Item Value Reference Range Interpretation Comments PARTIAL THROMBOPLASTIN TIME 62.4 seconds 23.2-36.1 H (BEAKER) (test code = 760) [id number] 12:45:00 Test Item Value Reference Range Interpretation Comments PARTIAL THROMBOPLASTIN TIME 101.2 seconds 23.2-36.1 H (BEAKER) (test code = 760) POCT-GLUCOSE [id number] 11:48:00 Test Item Value Reference Range Interpretation Comments POC-GLUCOSE METER 259 mg/dL 70-110 H TESTED AT [facility] [address] (BEAKER) (test code [facility] = 1538) [place] [address] POCT-GLUCOSE [id number] 05:38:00 Test Item Value Reference Range Interpretation Comments POC-GLUCOSE METER 121 mg/dL 70-110 H TESTED AT [facility] [address] (BEAKER) (test code [facility] = 1538) [place] [address] [id number] 05:33:00 Test Item Value Reference Range Interpretation Comments PARTIAL THROMBOPLASTIN TIME 108.5 seconds 23.2-36.1 H (BEAKER) (test code = 760) POCT-GLUCOSE [id number] 20:59:00 Test Item Value Reference Range Interpretation Comments POC-GLUCOSE METER 197 mg/dL 70-110 H TESTED AT [facility] [address] (BEAKER) (test code [facility] = 1538) [place] [address] POCT-GLUCOSE [id number] 16:47:00 Test Item Value Reference Range Interpretation Comments POC-GLUCOSE METER 150 mg/dL 70-110 H TESTED AT [facility] [address] (BEAKER) (test code [facility] = 1538) [place] [address] [id number] 15:21:00 Test Item Value Reference Range Interpretation Comments PARTIAL THROMBOPLASTIN TIME 79.9 seconds 23.2-36.1 H (BEAKER) (test code = 760) POCT-GLUCOSE [id number] 12:52:00 Test Item Value Reference Range Interpretation Comments POC-GLUCOSE METER 207 mg/dL 70-110 H TESTED AT [facility] [address] (BEAKER) (test code [facility] = 1538) [place] [address] [id number] 09:17:00 Test Item Value Reference Range Interpretation Comments PARTIAL THROMBOPLASTIN TIME 95.7 seconds 23.2-36.1 H (BEAKER) (test code = 760) BASIC METABOLIC [id number] 02:36:00 Test Item Value Reference Range Interpretation [...] I S NOT APPLICABLE FOR DIALYSIS PATIEN [id number] 02:26:00 Test Item Value Reference Range Interpretation Comments PARTIAL THROMBOPLASTIN TIME 104.6 seconds 23.2-36.1 H (BEAKER) (test code = 760) CBC W/PLT COUNT & AUTO [id number] 02:18:00 Test Item Value Reference Range Interpretation [...] PERCENT (BEAKER) (test code = 2801) POCT-GLUCOSE [id number] 22:17:00 Test Item Value Reference Range Interpretation Comments POC-GLUCOSE METER 211 mg/dL 70-110 H TESTED AT [facility] [address] [facility] (test code [facility] = 1538) [place] [address] [id number] 20:16:00 Test Item Value Reference Range Interpretation Comments PARTIAL THROMBOPLASTIN TIME 107.2 seconds 23.2-36.1 H (BEAKER) (test code = 760) POCT-GLUCOSE [id number] 16:24:00 Test Item Value Reference Range Interpretation Comments POC-GLUCOSE METER 167 mg/dL 70-110 H TESTED AT [facility] [address] ([facility] (test code [facility] = 1538) [place] [address] [id number] 14:17:00 Test Item Value Reference Range Interpretation Comments PARTIAL THROMBOPLASTIN TIME 96.3 seconds 23.2-36.1 H (BEAKER) (test code = 760) POCT-GLUCOSE [id number] 11:40:00 Test Item Value Reference Range Interpretation Comments POC-GLUCOSE METER 190 mg/dL 70-110 H TESTED AT [facility] [address] ([facility] (test code [facility] = 1538) [place] [address] [id number] 07:52:00 Test Item Value Reference Range Interpretation Comments PARTIAL THROMBOPLASTIN TIME 58.0 seconds 23.2-36.1 H (BEAKER) (test code = 760) BASIC METABOLIC [id number] 06:09:00 Test Item Value Reference Range Interpretation [...] S NOT APPLICABLE FOR DIALYSIS PATIEN TS. [id number] 05:53:00 Test Item Value Reference Range Interpretation Comments PARTIAL THROMBOPLASTIN TIME 138.1 seconds 23.2-36.1 H (BEAKER) (test code = 760) CBC W/PLT COUNT & AUTO [id number] 05:45:00 Test Item Value Reference Range Interpretation [...] GRANULOCYTES-RELATIVE PERCENT (BEAKER) (test code = 2801) [id number] 23:56:00 Test Item Value Reference Range Interpretation Comments PARTIAL THROMBOPLASTIN TIME 96.6 seconds 23.2-36.1 H (BEAKER) (test code = 760) POCT-GLUCOSE [id number] 21:22:00 Test Item Value Reference Range Interpretation Comments POC-GLUCOSE METER 160 mg/dL 70-110 H TESTED AT [facility] [address] (BEAKER) (test code [facility] = 1538) [place] [address] POCT-GLUCOSE [id number] 17:27:00 Test Item Value Reference Range Interpretation Comments POC-GLUCOSE METER 151 mg/dL 70-110 H TESTED AT [facility] [address] (BEAKER) (test code [facility] = 1538) [place] [address] [id number] 16:40:00 Test Item Value Reference Range Interpretation Comments PARTIAL THROMBOPLASTIN TIME 40.0 seconds 23.2-36.1 H (BEAKER) (test code = 760) POCT-GLUCOSE [id number] 13:43:00 Test Item Value Reference Range Interpretation Comments POC-GLUCOSE METER 164 mg/dL 70-110 H TESTED AT [facility] [address] (BEAKER) (test code [facility] = 1538) [place] [address] [id number] 13:34:00 Test Item Value Reference Range Interpretation Comments PARTIAL THROMBOPLASTIN TIME 141.6 seconds 23.2-36.1 H (BEAKER) (test code = 760) OCCULT BLOOD, [id number] 13:20:00 Test Item Value Reference Range Interpretation Comments FECAL OCCULT BLOOD (BEAKER) (test Negative Negative code = 618) BASIC METABOLIC [id number] 12:13:00 Test Item Value Reference Range Interpretation [...] APPLICABLE FOR DIALYSIS PATIEN TS. HEPATIC FUNCTION [id number] 12:13:00 Test Item Value Reference Range Interpretation [...] 6-50 347) CBC W/PLT COUNT & AUTO [id number] 11:47:00 Test Item Value Reference Range Interpretation [...] GRANULOCYTES-RELATIVE PERCENT (BEAKER) (test code = 2801) [id number] 06:33:00 Test Item Value Reference Range Interpretation Comments PARTIAL THROMBOPLASTIN TIME 102.3 seconds 23.2-36.1 H (BEAKER) (test code = 760) POCT-GLUCOSE [id number] 05:47:00 Test Item Value Reference Range Interpretation Comments POC-GLUCOSE METER 151 mg/dL 70-110 H TESTED AT [facility] [address] (BEAKER) (test code [facility] = 1538) [place] [address] BASIC METABOLIC [id number] 01:16:00 Test Item Value Reference Range Interpretation [...] S NOT APPLICABLE FOR DIALYSIS PATIEN TS. [id number] 01:06:00 Test Item Value Reference Range Interpretation Comments PARTIAL THROMBOPLASTIN TIME 46.8 seconds 23.2-36.1 H (BEAKER) (test code = 760) [id number] 23:18:00 Test Item Value Reference Range Interpretation Comments PARTIAL THROMBOPLASTIN TIME 177.9 seconds 23.2-36.1 HH (BEAKER) (test code = 760) POCT-GLUCOSE [id number] 22:05:00 Test Item Value Reference Range Interpretation Comments POC-GLUCOSE METER 204 mg/dL 70-110 H TESTED AT [facility] [address] ([facility] (test code [facility] = 1538) [place] [address] [id number] 16:35:00 Test Item Value Reference Range Interpretation Comments PARTIAL THROMBOPLASTIN TIME 47.9 seconds 23.2-36.1 H (BEAKER) (test code = 760) POCT-GLUCOSE [id number] 16:33:00 Test Item Value Reference Range Interpretation Comments POC-GLUCOSE METER 167 mg/dL 70-110 H TESTED AT [facility] [address] ([facility]) (test code [facility] = 1538) [place] [address] [id number] 15:11:00 Test Item Value Reference Range Interpretation Comments PARTIAL THROMBOPLASTIN TIME 198.7 seconds 23.2-36.1 HH (BEAKER) (test code = 760) POCT-GLUCOSE [id number] 12:08:00 Test Item Value Reference Range Interpretation Comments POC-GLUCOSE METER 166 mg/dL 70-110 H TESTED AT [facility] [address] ([facility]) (test code [facility] = 1538) [place] [address] [id number] 07:27:00 Test Item Value Reference Range Interpretation Comments PARTIAL THROMBOPLASTIN TIME 65.6 seconds 23.2-36.1 H (BEAKER) (test code = 760) [id number] 05:59:00 Test Item Value Reference Range Interpretation Comments PARTIAL THROMBOPLASTIN TIME 156.1 seconds 23.2-36.1 HH (BEAKER) (test code = 760) BASIC METABOLIC [id number] 05:54:00 Test Item Value Reference Range Interpretation [...] NOT APPLICABLE FOR DIALYSIS PATIEN TS. POCT-GLUCOSE [id number] 05:45:00 Test Item Value Reference Range Interpretation Comments POC-GLUCOSE METER 145 mg/dL 70-110 H TESTED AT [facility] [address] (BEAKER) (test code [facility] = 1538) [place] [address] CBC W/PLT COUNT & AUTO [id number] 05:36:00 Test Item Value Reference Range Interpretation [...] PERCENT (BEAKER) (test code = 2801) POCT-GLUCOSE [id number] 20:29:00 Test Item Value Reference Range Interpretation Comments POC-GLUCOSE METER 128 mg/dL 70-110 H TESTED AT [facility] [address] (BEAKER) (test code [facility] = 1538) [place] [address] POCT-GLUCOSE [id number] 16:58:00 Test Item Value Reference Range Interpretation Comments POC-GLUCOSE METER 160 mg/dL 70-110 H TESTED AT [facility] [address] (BEAKER) (test code [facility] = 1538) [place] [address] POCT-GLUCOSE [id number] 11:58:00 Test Item Value Reference Range Interpretation Comments POC-GLUCOSE METER 163 mg/dL 70-110 H TESTED AT [facility] [address] ([facility]) (test code [facility] = 1538) [place] [address] [id number] 05:25:00 Test Item Value Reference Range Interpretation Comments PARTIAL THROMBOPLASTIN TIME 79.6 seconds 23.2-36.1 H (BEAKER) (test code = 760) CBC W/PLT COUNT & AUTO [id number] 05:18:00 Test Item Value Reference Range Interpretation [...] GRANULOCYTES-RELATIVE PERCENT (BEAKER) (test code = 2801) [id number] 21:47:00 Test Item Value Reference Range Interpretation Comments PARTIAL THROMBOPLASTIN TIME 85.4 seconds 23.2-36.1 H (BEAKER) (test code = 760) POCT-GLUCOSE [id number] 16:24:00 Test Item Value Reference Range Interpretation Comments POC-GLUCOSE METER 189 mg/dL 70-110 H TESTED AT [facility] [address] (BEAKER) (test code [facility] = 1538) [place] [address] [id number] 13:02:00 Test Item Value Reference Range Interpretation Comments PARTIAL THROMBOPLASTIN TIME 51.8 seconds 23.2-36.1 H (BEAKER) (test code = 760) POCT-GLUCOSE [id number] 11:41:00 Test Item Value Reference Range Interpretation Comments POC-GLUCOSE METER 169 mg/dL 70-110 H TESTED AT [facility] [address] (BEAKER) (test code [facility] = 1538) [place] [address] VITAMIN D, [id number] 08:15:00 Test Item Value Reference Range Interpretation Comments VITAMIN D 25-OH (BEAKER) (test code 5.4 ng/mL 6.6-49.9 L = 2764) Effective 12/25/2016: Reference Range ChangeNew: 6.6-49.9 ng/mL Previous: 13.0-47.8 ng/mLRecommended Vitamin D Target Range: 30.0-40.0 ng/mLPOCT-GLUCOSE [id number] 06:20:00 Test Item Value Reference Range Interpretation Comments POC-GLUCOSE METER 158 mg/dL 70-110 H TESTED AT [facility] [address] [facility] (test code [facility] = 1538) [place] [address] HEPATIC FUNCTION [id number] 05:45:00 Test Item Value Reference Range Interpretation Comments TOTAL PROTEIN (BEAKER) 6.5 gm/dL 6.0-8.5 Speci men markedly (test code = 770) hemolyzed ALBUMIN (BEAKER) (test 1.8 g/dL 3.5-5.0 L Speci men markedly code = 1145) hemolyzed BILIRUBIN TOTAL 1.2 mg/dL 0.1-1.3 Specimen michael barrientosy (BEAKER) (test code = hemoly zed 377) BILIRUBIN DIRECT 0.1 mg/dL 0.0-0.5 Specimen abeba browning (BEAKER) (test code = hemoly zed 706) ALKALINE PHOSPHATASE 142 U/L 30-115 H (BEAKER) (test code = 346) AST (SGOT) (BEAKER) 49 U/L 5-40 H Specimen markedly (test code = 353) hemolyzed ALT (SGPT) (BEAKER) 28 U/L 6-50 Specimen markedly (test code = 347) hemolyzed [id number] 05:30:00 Test Item Value Reference Range Interpretation Comments PARTIAL THROMBOPLASTIN TIME 63.3 seconds 23.2-36.1 H (AKER) (test code = 760) Prior to initiating heparinCBC W/PLT COUNT & AUTO [id number] 05:23:00 Test Item Value Reference Range Interpretation Comments WHITE BLOOD CELL COUNT 27.7 K/ L 4.0-10.0 H (BEAKER) (test code = 775) RED BLOOD CELL COUNT 3.27 M/ L 4.00-5.00 L (AKER) (test code = 761) HEMOGLOBIN (BEAKER) 8.8 [...] GRANULOCYTES-RELATIVE PERCENT (BEAKER) (test code = 2801) [id number] 00:59:00 Test Item Value Reference Range Interpretation Comments PARTIAL THROMBOPLASTIN TIME 62.3 seconds 23.2-36.1 H (BEAKER) (test code = 760) POCT-GLUCOSE [id number] 21:34:00 Test Item Value Reference Range Interpretation Comments POC-GLUCOSE METER 196 mg/dL 70-110 H TESTED AT [facility] [address] (BEAKER) (test code [facility] = 1538) [place] [address] [id number] 18:14:00 Test Item Value Reference Range Interpretation Comments PARTIAL THROMBOPLASTIN TIME 82.3 seconds 23.2-36.1 H (BEAKER) (test code = 760) POCT-GLUCOSE [id number] 17:01:00 Test Item Value Reference Range Interpretation Comments POC-GLUCOSE METER 192 mg/dL 70-110 H TESTED AT [facility] [address] (BEAKER) (test code [facility] = 1538) [place] [address] POCT-GLUCOSE [id number] 13:29:00 Test Item Value Reference Range Interpretation Comments POC-GLUCOSE METER 207 mg/dL 70-110 H TESTED AT [facility] [address] (BEAKER) (test code [facility] = 1538) [place] [address] [id number] 12:48:00 Test Item Value Reference Range Interpretation Comments PARTIAL THROMBOPLASTIN TIME 63.3 seconds 23.2-36.1 H (BEAKER) (test code = 760) CBC W/PLT COUNT & AUTO [id number] 12:25:00 Test Item Value Reference Range Interpretation [...] PERCENT (BEAKER) (test code = 2801) POCT-GLUCOSE [id number] 06:40:00 Test Item Value Reference Range Interpretation Comments POC-GLUCOSE METER 166 mg/dL 70-110 H TESTED AT [facility] [address] (BEAKER) (test code [facility] = 1538) [place] [address] BUN AND [id number] 06:07:00 Test Item Value Reference Range Interpretation [...] 12 noon Amikacin Blood level draw. Thank [id number] 05:48:00 Test Item Value Reference Range Interpretation Comments PARTIAL THROMBOPLASTIN TIME 60.0 seconds 23.2-36.1 H (BEAKER) (test code = 760) ANTI-NUCLEAR ANTIBODY (TAMMI)[id number] 00:24:00 Test Item Value Reference Range Interpretation Comments ANTI-NUCLEAR ANTIBODY (TAMMI) (AKER) Negative Negative (test code = 418) Test performed by IFA method.Test performed by IFA method.[id number] 23:01:00 Test Item Value Reference Range Interpretation Comments PARTIAL THROMBOPLASTIN TIME 58.3 seconds 23.2-36.1 H (AKER) (test code = 760) POCT-GLUCOSE [id number] 21:22:00 Test Item Value Reference Range Interpretation Comments POC-GLUCOSE METER 171 mg/dL 70-110 H TESTED AT [facility] [address] ([facility]) (test code [facility] = [address]) [place] [address] POCT-GLUCOSE [id number] 16:54:00 Test Item Value Reference Range Interpretation Comments POC-GLUCOSE METER 135 mg/dL 70-110 H TESTED AT [facility] [address] ([facility]) (test code [facility] = [address]) [place] [address] PERIPHERAL BLOOD SMEAR - PATHOLOGIST [id number] 15:35:00 Test Item Value Reference Range Interpretation Comments PERIPHERAL SMR REVIEW Neutrophilic ([facility]) (test code = leukocytosis with 2640) increased band forms and unremarkable WBC morphology. Normocytic anemia with unremarkable RBCs. Platelets unremarkable. No dysmorphic or blast forms seen. [id number] Nazario Becker M.D. ([facility]) (test code = (electronic signature) 1215) (MANUAL DIFFERENTIAL)2017-11-19 15:31:00 Test Item Value Reference [...] (BEAKER) (test code = 1+ few 480) [id number] 15:21:00 Test Item Value Reference Range Interpretation Comments PARTIAL THROMBOPLASTIN TIME 39.3 seconds 23.2-36.1 H (BEAKER) (test code = 760) POCT-GLUCOSE [id number] 13:08:00 Test Item Value Reference Range Interpretation Comments POC-GLUCOSE METER 140 mg/dL 70-110 H TESTED AT [facility] [address] (BEAKER) (test code [facility] = 1538) [place] [address] CBC W/PLT COUNT & AUTO [id number] 09:33:00 Test Item Value Reference Range Interpretation [...] (BEAKER) (test code = 413) BUN AND [id number] 08:45:00 Test Item Value Reference Range Interpretation [...] 12 noon Amikacin Blood level draw. Thank [id number] 08:27:00 Test Item Value Reference Range Interpretation Comments PARTIAL THROMBOPLASTIN TIME 29.5 seconds 23.2-36.1 (BEAKER) (test code = 760) POCT-GLUCOSE [id number] 04:48:00 Test Item Value Reference Range Interpretation Comments POC-GLUCOSE METER 142 mg/dL 70-110 H TESTED AT [facility] [address] ([facility]) (test code [facility] = 1538) [place] [address] RHEUMATOID FACTOR AB, REFLEX TO [id number] 01:10:00 Test Item Value Reference Range Interpretation Comments RHEUMATOID FACTOR (BEAKER) (test Negative code = 573) [id number] 00:56:00 Test Item Value Reference Range Interpretation Comments PROTIME (HARDIK) (test code = 17.9 seconds 11.8-14.4 H 759) INR (HARDIK) (test code = 370) 1.4 1.2-1.5 PARTIAL THROMBOPLASTIN TIME 48.9 seconds 23.2-36.1 H (HARDIK) (test code = 760) RECOMMENDED COUMADIN/WARFARIN INR THERAPY RANGESSTANDARD DOSE: 2.0 - 3.0 Includes: PROPHYLAXIS forvenous thrombosis, systemic embolization; TREATMENT for venous thrombosis and/or pulmonary embolus.HIGH RISK: Target INR is 2.5-3.5 for patients with mechanical heart valves.VENOUS DOPPLER LEGS, [id number] 22:05:00Reason for exam:->leukocytosis persistentFINAL REPORT CLINICAL HISTORY: [...] lower extremity without deep venous thrombosis. Signed: Fide Machuca MDReport Verified Date/Time: 11/18/2017 22:05:25 Reading Location: [address] Reading Room POCT-GLUCOSE [id number] 20:56:00 Test Item Value Reference Range Interpretation Comments POC-GLUCOSE METER 111 mg/dL 70-110 H TESTED AT [facility] [address] (HARDIK) (test code [facility] = 1538) [place] [address] AMIKACIN LEVEL, [id number] 17:26:00 Test Item Value Reference Range Interpretation Comments AMIKACIN, TROUGH (HARDIK) (test 10.3 ug/mL 4.0-8.0 HH code = 1830) Therapeutic Range (ug/mL)Peak: 25.0-35.0Trough: 4.0-8.0 Toxic: >35.0VENOUS DOPPLER ARMS, [id number] 16:59:00Reason for exam:->swelling right handAddendum BeginsREPORT STATUS:A Addendum:A left-sided PICC is visualized. End of addendum. Signed: Dangelo Proctoreport Verified Date/Time: 11/18/2017 16:59:45 Reading Location: [facility] Radiology Reading RoomAddendum EndsFINAL REPORT Bilateral upper [...] SILAS Neff at 3:30 PM. Signed: Dangelo Proctoreport Verified Date/Time: 11/18/2017 15:36:41 [facility] POCT-GLUCOSE [id number] 16:58:00 Test Item Value Reference Range Interpretation Comments POC-GLUCOSE METER 100 mg/dL 70-110 TESTED AT [facility] [address] ([facility]) (test code [employer] [facility] = 1538) [place] [address] POCT-GLUCOSE [id number] 11:30:00 Test Item Value Reference Range Interpretation Comments POC-GLUCOSE METER 119 mg/dL 70-110 H TESTED AT [facility] [address] ([facility]) (test code [employer] [facility] = 1538) [place] [address] HEPATITIS B SURFACE [id number] 11:18:00 Test Item Value Reference Range Interpretation Comments HEPATITIS B SURFACE ANTIBODY 436.5 mIU/mL <8.0 H (BEAKER) (test code = 647) HEPATITIS C [id number] 11:18:00 Test Item Value Reference Range Interpretation Comments HEPATITIS C ANTIBODY (BEAKER) Nonreactive Nonreactive (test code = 367) AMIKACIN LEVEL, [id number] 11:03:00 Test Item Value Reference Range Interpretation Comments AMIKACIN, PEAK (BEAKER) (test code 26.0 ug/mL 25.0-35.0 = 1831) Therapeutic Range (ug/mL)Peak: 25.0-35.0Trough: 4.0-8.0 Toxic: >35.0 SURGICALLY OBTAINED CULTURE + GRAM [id number] 08:25:00 Test Item Value Reference Interpretation Comments [...] No organisms seen (BEAKER) (test code = 787121) ANAEROBIC [id number] 07:53:00 Test Item Value Reference Range Interpretation Comments CULTURE (BEAKER) (test No anaerobes isolated code = 1095) GRAM STAIN RESULT 1+ WBCs (BEAKER) (test code = 1123) GRAM STAIN RESULT No organisms seen (BEAKER) (test code = 97152) POCT-GLUCOSE [id number] 06:37:00 Test Item Value Reference Range Interpretation Comments POC-GLUCOSE METER 135 mg/dL 70-110 H TESTED AT [facility] [address] (BEAKER) (test code [facility] = 1538) [place] [address] HIV-1 ANTIGEN WITH HIV-1/2 [id number] 05:51:00 Test Item Value Reference Range Interpretation Comments HIV-1 ANTIGEN WITH HIV 1\\T\\2 Nonreactive Nonreactive ANTIBODY (2) (BEAKER) (test code = 2586) HEPATITIS B SURFACE [id number] 05:46:00 Test Item Value Reference Range Interpretation Comments HEPATITIS B SURFACE ANTIGEN (2) Nonreactive Nonreactive (BEAKER) (test code = 2585) CBC W/PLT COUNT & AUTO [id number] 05:11:00 Test Item Value Reference Range Interpretation [...] code = 2801) Smear reviewed. Results confirmed.POCT-GLUCOSE [id number] 23:01:00 Test Item Value Reference Range Interpretation Comments POC-GLUCOSE METER 111 mg/dL 70-110 H TESTED AT [facility] [address] (BEAKER) (test code [facility] = 1538) [place] [address] POCT-GLUCOSE [id number] 17:15:00 Test Item Value Reference Range Interpretation Comments POC-GLUCOSE METER 100 mg/dL 70-110 TESTED AT [facility] [address] ([facility]) (test code [facility] = 1538) [place] [address] C-REACTIVE [id number] 14:34:00 Test Item Value Reference Range Interpretation Comments C-REACTIVE PROTEIN (BEAKER) (test 35.06 mg/dL 0.00-0.50 H code = 676) POCT-GLUCOSE [id number] 12:50:00 Test Item Value Reference Range Interpretation Comments POC-GLUCOSE METER 221 mg/dL 70-110 H TESTED AT [facility] [address] (BEAKER) (test code [facility] = 1538) [place] [address] CBC W/PLT COUNT & AUTO [id number] 10:56:00 Test Item Value Reference Range Interpretation [...] PERCENT (BEAKER) (test code = 2801) POCT-GLUCOSE [id number] 10:03:00 Test Item Value Reference Range Interpretation Comments POC-GLUCOSE METER 104 mg/dL 70-110 TESTED AT [facility] [address] (BEAKER) (test code [facility] = 1538) [place] [address] BASIC METABOLIC [id number] 04:51:00 Test Item Value Reference Range Interpretation Comments SODIUM (BEAKER) 138 meq/L 135-148 (test code = 381) POTASSIUM (BEAKER) 4.2 meq/L 3.5-5.5 (test code = 379) CHLORIDE (BEAKER) 107 meq/L 98-106 H (test code = 382) CO2 (BEAKER) (test 22 meq/L 20-31 code = 355) BLOOD UREA NITROGEN 17 mg/dL 10-26 (BEAKER) (test code = 354) CREATININE (BEAKER) 0.67 mg/dL 0.50-1.20 (test code = 358) GLUCOSE RANDOM 106 mg/dL 70-110 (BEAKER) (test code = 652) CALCIUM (BEAKER) 8.2 mg/dL 8.5-10.5 L (test code = 697) EGFR (BEAKER) (test 110 mL/min/1.73 ESTIM ATED GFR IS code = 1092) sq m NOT ACCURATE CREATININE CLEARANCE IN PREDICTING GLOMERULAR FILTRATION RATE . ESTIMATED GFR I S NOT APPLICABLE FOR DIALYSIS PATIEN TS. POCT-GLUCOSE [id number] 20:41:00 Test Item Value Reference Range Interpretation Comments POC-GLUCOSE METER 127 mg/dL 70-110 H TESTED AT [facility] [address] ([facility]) (test code [facility] = 1538) [place] [address] POCT-GLUCOSE [id number] 17:03:00 Test Item Value Reference Range Interpretation Comments POC-GLUCOSE METER 145 mg/dL 70-110 H TESTED AT [facility] [address] ([facility]) (test code [facility] = 1538) [place] [address] [id number] 12:39:00 Test Item Value Reference Range Interpretation Comments PROCALCITONIN (BEAKER) (test code 1.27 ng/mL <0.05 H = 3036) SEPSIS RISK (ng/mL)Low: 0.05-0.50Intermediate: 0.51-2.00High: >=2.01POCT-GLUCOSE [id number] 11:58:00 Test Item Value Reference Range Interpretation Comments POC-GLUCOSE METER 120 mg/dL 70-110 H TESTED AT [facility] [address] ([facility]) (test code [facility] = 1538) [place] [address] CBC W/PLT COUNT & AUTO [id number] 09:50:00 Test Item Value Reference Range Interpretation Comments WHITE BLOOD CELL COUNT 34.2 K/ L 4.0-10.0 H Smear reviewed. (BEAKER) [...] PERCENT (BEAKER) (test code = 2801) POCT-GLUCOSE [id number] 06:32:00 Test Item Value Reference Range Interpretation Comments POC-GLUCOSE METER 124 mg/dL 70-110 H TESTED AT [facility] [address] (BEAKER) (test code [facility] = 1538) [place] [address] BASIC METABOLIC [id number] 06:27:00 Test Item Value Reference Range Interpretation [...] APPLICABLE FOR DIALYSIS PATIEN TS. BUN AND [id number] 06:26:00 Test Item Value Reference Range Interpretation [...] APPLICABLE FOR DIALYSIS PATIEN TS. HEMOGLOBIN AND [id number] 06:03:00 Test Item Value Reference Range Interpretation Comments HEMOGLOBIN (BEAKER) (test code = 8.6 GM/DL 12.0-15.5 L 410) HEMATOCRIT (BEAKER) (test code = 25.9 % 36.0-46.0 L 411) CT, CHEST, WITHOUT [id number] 22:51:00FINAL REPORT CLINICAL HISTORY: Leukocytosis FINDINGS: Multiple [...] patient's leukocytosis. Postsurgical changes, as described. Signed: Fide Machuca MDReport Verified Date/Time: 11/15/2017 22:51:35 Reading Location: [address] Reading Room [place], [id number] 22:51:00FINAL REPORT CLINICAL HISTORY: Leukocytosis FINDINGS: Multiple [...] patient's leukocytosis. Postsurgical changes, as described. Signed: Fide Machuca MDReport Verified Date/Time: 11/15/2017 22:51:35 Reading Location: [address] Reading Room POCT-GLUCOSE [id number] 21:14:00 Test Item Value Reference Range Interpretation Comments POC-GLUCOSE METER 128 mg/dL 70-110 H TESTED AT [address]) (test code [facility] = 1538) [place] [address] POCT-GLUCOSE [id number] 17:10:00 Test Item Value Reference Range Interpretation Comments POC-GLUCOSE METER 109 mg/dL 70-110 TESTED AT [facility] [address] ([facility]) (test code [facility] = 1538) [place] [address] POCT-GLUCOSE [id number] 12:15:00 Test Item Value Reference Range Interpretation Comments POC-GLUCOSE METER 116 mg/dL 70-110 H TESTED AT [facility] [address] ([facility]) (test code [facility] = 1538) [place] [address] SPIN/CONCENTRATION [id number] 10:39:00 Test Item Value Reference Range Interpretation Comments CONCENTRATION CHARGED (BEAKER) (test Done code = 2657) CBC W/PLT COUNT & AUTO [id number] 09:22:00 Test Item Value Reference Range Interpretation [...] (test code = 2801) TYPE AND SCREEN, [id number] 08:18:00 Test Item Value Reference Range Interpretation Comments ABO/RH AUTOMATED (BEAKER) (test B POSITIVE code = 2260) AB SCREEN (BEAKER) (test code = NEGATIVE 923) ANAEROBIC [id number] 07:55:00 Test Item Value Reference Range Interpretation Comments CULTURE (BEAKER) (test No anaerobes isolated code = 1095) BASIC METABOLIC [id number] 05:40:00 Test Item Value Reference Range Interpretation [...] APPLICABLE FOR DIALYSIS PATIEN TS. BUN AND [id number] 05:37:00 Test Item Value Reference Range Interpretation [...] APPLICABLE FOR DIALYSIS PATIEN TS. VANCOMYCIN LEVEL, [id number] 05:36:00 Test Item Value Reference Range Interpretation Comments VANCOMYCIN TROUGH ([facility]) (test 17.5 ug/mL 10.0-20.0 code = 522) HEMOGLOBIN AND [id number] 05:23:00 Test Item Value Reference Range Interpretation Comments HEMOGLOBIN (BEAKER) (test code = 6.4 GM/DL 12.0-15.5 L 410) HEMATOCRIT (BEAKER) (test code = 19.3 % 36.0-46.0 LL 411) POCT-GLUCOSE [id number] 16:12:00 Test Item Value Reference Range Interpretation Comments POC-GLUCOSE METER 129 mg/dL 70-110 H TESTED AT [facility] [address] ([facility]) (test code [facility] = 1538) [place] [address] POCT-GLUCOSE [id number] 12:07:00 Test Item Value Reference Range Interpretation Comments POC-GLUCOSE METER 114 mg/dL 70-110 H TESTED AT [facility] [address] ([facility]) (test code [employer] [facility] = 1538) [place] [address] POCT-GLUCOSE [id number] 10:00:00 Test Item Value Reference Range Interpretation Comments POC-GLUCOSE METER 97 mg/dL 70-110 TESTED AT [facility] [address] ([facility]) (test code = [facility] [place] [place] [address] SURGICALLY OBTAINED CULTURE + GRAM [id number] 09:36:00 Test Item Value Reference Range Interpretation Comments CULTURE (BEAKER) (test code No growth = 1095) GRAM STAIN RESULT (BEAKER) <1+ WBCs (test code = 1123) GRAM STAIN RESULT (BEAKER) No organisms seen (test code = 17900) POCT-GLUCOSE [id number] 06:06:00 Test Item Value Reference Range Interpretation Comments POC-GLUCOSE METER 105 mg/dL 70-110 TESTED AT [facility] [address] (BEAKER) (test code [facility] = 1538) [place] [address] BASIC METABOLIC [id number] 05:55:00 Test Item Value Reference Range Interpretation Comments SODIUM (BEAKER) 138 meq/L 135-148 (test code = 381) POTASSIUM (BEAKER) 4.0 meq/L 3.5-5.5 (test code = 379) CHLORIDE (BEAKER) 108 meq/L 98-106 H (test code = 382) CO2 (BEAKER) (test 23 meq/L -31 code = 355) BLOOD UREA NITROGEN 18 [...] PATIEN TS. CBC W/PLT COUNT & AUTO [id number] 05:35:00 Test Item Value Reference Range Interpretation [...] PERCENT (BEAKER) (test code = 2801) POCT-GLUCOSE [id number] 21:11:00 Test Item Value Reference Range Interpretation Comments POC-GLUCOSE METER 94 mg/dL 70-110 TESTED AT [facility] [address] (BEAKER) (test code = [facility] 1538) [place] [address] POCT-GLUCOSE [id number] 16:51:00 Test Item Value Reference Range Interpretation Comments POC-GLUCOSE METER 121 mg/dL 70-110 H TESTED AT [facility] [address] (BEAKER) (test code [facility] = 1538) [place] [address] POCT-GLUCOSE [id number] 15:10:00 Test Item Value Reference Range Interpretation Comments POC-GLUCOSE METER 97 mg/dL 70-110 TESTED AT [facility] [address] (BEAKER) (test code = [facility] 1538) [place] [address] [id number] 10:17:00 Test Item Value Reference Range Interpretation Comments PROCALCITONIN (BEAKER) (test code 1.41 ng/mL <0.05 H = 3036) SEPSIS RISK (ng/mL)Low: 0.05-0.50Intermediate: 0.51-2.00High: >=2.01HEPATIC FUNCTION [id number] 09:52:00 Test Item Value Reference Range Interpretation [...] code = 12 U/L 6-50 347) POCT-GLUCOSE [id number] 05:57:00 Test Item Value Reference Range Interpretation Comments POC-GLUCOSE METER 87 mg/dL 70-110 TESTED AT [facility] [address] (BEAKER) (test code = [facility] 1538) [place] [address] BASIC METABOLIC [id number] 05:34:00 Test Item Value Reference Range Interpretation [...] 697) EGFR (BEAKER) (test 91 mL/min/1.73 ESTIMA YUMIKO GFR IS code = 1092) sq m NOT ACCURATE CREATININE CLEARANCE IN PREDICTING GLOMERULAR FILTRATION RATE . ESTIMATED GFR I S NOT APPLICABLE FOR DIALYSIS PATIEN TS. CBC W/PLT COUNT & AUTO [id number] 05:33:00 Test Item Value Reference Range Interpretation [...] (BEAKER) (test code = 2801) BUN AND [id number] 05:32:00 Test Item Value Reference Range Interpretation Comments BLOOD UREA NITROGEN 21 mg/dL 10-26 (BEAKER) (test code = 354) CREATININE (BEAKER) 0.79 mg/dL 0.50-1.20 (test code = 358) EGFR (BEAKER) (test 91 mL/min/1.73 ESTIMA YUMIKO GFR IS code = 1092) sq m NOT ACCURATE CREATININE CLEARANCE IN PREDICTING GLOMERULAR FILTRATION RATE . ESTIMATED GFR I S NOT APPLICABLE FOR DIALYSIS PATIEN TS. BLOOD [id number] 04:00:00 Test Item Value Reference Range Interpretation Comments CULTURE (BEAKER) (test No growth in 5 days code = 1095) BLOOD [id number] 01:00:00 Test Item Value Reference Range Interpretation Comments CULTURE (BEAKER) (test No growth in 5 days code = 1095) POCT-GLUCOSE [id number] 21:25:00 Test Item Value Reference Range Interpretation Comments POC-GLUCOSE METER 135 mg/dL 70-110 H TESTED AT [facility] [address] (BEAKER) (test code [facility] = 1538) [place] [address] ANG, NON-TUNNELED CATH/PICC >5 Y.O.2017-11-12 17:59:00Reason for [...] Impression: Successful PICC insertion as described. Signed: Mnadi Mancilla MDReport Verified Date/Time: 11/12/2017 17:59:19 Reading Location: [facility] Radiology Reading Room POCT-GLUCOSE [id number] 16:37:00 Test Item Value Reference Range Interpretation Comments POC-GLUCOSE METER 98 mg/dL 70-110 TESTED AT [facility] [address] ([facility]) (test code = [facility] 1538) [place] [address] PERIPHERAL BLOOD SMEAR - PATH REVIEW LAB [id number] 08:14:00 Test Item Value Reference Range Interpretation Comments PERIPHERAL SMR REVIEW Neutrophilic ([facility]) (test code = leukocytosis and 2640) microcytic anemia. No blast forms seen. [id number] Nazario Becker M.D. ([facility]) (test code = (electronic signature) 4627) (MANUAL DIFFERENTIAL)2017-11-12 08:12:00 Test Item Value Reference [...] few 963) BODY FLUID CULTURE + GRAM [id number] 08:10:00 Test Item Value Reference Range Interpretation Comments CULTURE (BEAKER) (test No growth code = 1095) GRAM STAIN RESULT 3+ White blood cells (BEAKER) (test code = seen 1123) GRAM STAIN RESULT No organisms seen (BEAKER) (test code = 62368) POCT-GLUCOSE [id number] 06:18:00 Test Item Value Reference Range Interpretation Comments POC-GLUCOSE METER 113 mg/dL 70-110 H TESTED AT [facility] [address] (BEAKER) (test code [facility] = 1538) [place] [address] CBC W/PLT COUNT & AUTO [id number] 04:40:00 Test Item Value Reference Range Interpretation [...] (BEAKER) (test code = 2801) BASIC METABOLIC [id number] 03:56:00 Test Item Value Reference Range Interpretation [...] 697) EGFR (BEAKER) (test 88 mL/min/1.73 ESTIMA YUMIKO GFR IS code = 1092) sq m NOT ACCURATE CREATININE CLEARANCE IN PREDICTING GLOMERULAR FILTRATION RATE . ESTIMATED GFR I S NOT APPLICABLE FOR DIALYSIS PATIEN TS. BUN AND [id number] 03:55:00 Test Item Value Reference Range Interpretation Comments BLOOD UREA NITROGEN 19 mg/dL 10-26 (BEAKER) (test code = 354) CREATININE (BEAKER) 0.81 mg/dL 0.50-1.20 (test code = 358) EGFR (BEAKER) (test 88 mL/min/1.73 ESTIMA YUMIKO GFR IS code = 1092) sq m NOT ACCURATE CREATININE CLEARANCE IN PREDICTING GLOMERULAR FILTRATION RATE . ESTIMATED GFR I S NOT APPLICABLE FOR DIALYSIS PATIEN TS. POCT-GLUCOSE [id number] 20:51:00 Test Item Value Reference Range Interpretation Comments POC-GLUCOSE METER 151 mg/dL 70-110 H TESTED AT [facility] [address] (BEAKER) (test code [facility] = 1532) [place] [address] POCT-GLUCOSE [id number] 17:20:00 Test Item Value Reference Range Interpretation Comments POC-GLUCOSE METER 101 mg/dL 70-110 TESTED AT [facility] [address] (BEAKER) (test code [facility] = 1538) [place] [address] SPIN/CONCENTRATION [id number] 15:42:00 Test Item Value Reference Range Interpretation Comments CONCENTRATION CHARGED (BEAKER) (test Done code = 2657) POCT-GLUCOSE [id number] 11:34:00 Test Item Value Reference Range Interpretation Comments POC-GLUCOSE METER 109 mg/dL 70-110 TESTED AT [facility] [address] (BEAKER) (test code [facility] = 1538) [place] [address] VANCOMYCIN LEVEL, [id number] 09:14:00 Test Item Value Reference Range Interpretation Comments VANCOMYCIN TROUGH (BEAKER) (test 10.6 ug/mL 10.0-20.0 code = 522) BASIC METABOLIC [id number] 05:59:00 Test Item Value Reference Range Interpretation [...] 697) EGFR (BEAKER) (test 90 mL/min/1.73 ESTIMA YUMIKO GFR IS code = 1092) sq m NOT ACCURATE CREATININE CLEARANCE IN PREDICTING GLOMERULAR FILTRATION RATE . ESTIMATED GFR I S NOT APPLICABLE FOR DIALYSIS PATIEN TS. BUN AND [id number] 05:58:00 Test Item Value Reference Range Interpretation Comments BLOOD UREA NITROGEN 17 mg/dL 10-26 (BEAKER) (test code = 354) CREATININE (BEAKER) 0.80 mg/dL 0.50-1.20 (test code = 358) EGFR (BEAKER) (test 90 mL/min/1.73 ESTIMA YUMIKO GFR IS code = 1092) sq m NOT ACCURATE CREATININE CLEARANCE IN PREDICTING GLOMERULAR FILTRATION RATE . ESTIMATED GFR I S NOT APPLICABLE FOR DIALYSIS PATIEN TS. POCT-GLUCOSE [id number] 05:49:00 Test Item Value Reference Range Interpretation Comments POC-GLUCOSE METER 121 mg/dL 70-110 H TESTED AT [facility] [address] (BEAKER) (test code [facility] = 1538) [place] [address] CBC W/PLT COUNT & AUTO [id number] 05:43:00 Test Item Value Reference Range Interpretation [...] PERCENT (BEAKER) (test code = 2801) POCT-GLUCOSE [id number] 00:07:00 Test Item Value Reference Range Interpretation Comments POC-GLUCOSE METER 150 mg/dL 70-110 H TESTED AT [facility] [address] [facility] (test code [facility] = 1538) [place] [address] RAD, HIP, 1 VIEW, [id number] 23:51:00Reason for exam:->postopFINAL REPORT Right hip. HISTORY: Postoperative. COMPARISON STUDY: October 29, 2017. FINDINGS: A single frontal view of the right hip demonstrates a hemiarthroplasty in place. No cement is identified. There is no evidence of fracture or malalignment on this single projection. Signed: Alexandrea Blanco MDReport Verified Date/Time: 11/10/2017 23:51:24 Reading Location: [facility] B1 C013X Ortho Consult Reading Room RAD, PELVIS, 1 OR 2 [id number] 23:22:00Reason for exam:->Hip ArthroplastyReason for exam:->X-Table Lateral during OR. Sterile FieldFINAL REPORT Pelvis. HISTORY: Hip arthroplasty. COMPARISON STUDY: CT scan dated November 07, 2017. FINDINGS: Two views of the pelvis are suboptimal in appearance. A right hemiarthroplasty seen in place with no obvious fracture or malalignment on the provided views. Assessment for fractures is limited. Signed: Alexandrea Blanco MDReport Verified Date/Time: 11/10/2017 23:22:52 Reading Location: [facility] C013X Ortho Consult Reading Room POCT-GLUCOSE [id number] 22:54:00 Test Item Value Reference Range Interpretation Comments POC-GLUCOSE METER 140 mg/dL 70-110 H TESTED AT [facility] [address] (BEAKER) (test code [facility] = 1538) [place] [id number] POCT-GLUCOSE [id number] 16:57:00 Test Item Value Reference Range Interpretation Comments POC-GLUCOSE METER 98 mg/dL 70-110 TESTED AT [facility] [address] [facility] (test code = [facility] [address]) [place] [address] POCT-GLUCOSE [id number] 12:41:00 Test Item Value Reference Range Interpretation Comments POC-GLUCOSE METER 111 mg/dL 70-110 H TESTED AT [facility] [address] (BEAKER) (test code [facility] = 1538) [place] [address] (MANUAL DIFFERENTIAL)2017-11-10 07:35:00 Test Item Value Reference [...] = 762) CBC W/PLT COUNT & AUTO [id number] 07:32:00 Test Item Value Reference Range Interpretation [...] 0-0 CELLS (BEAKER) (test code = 413) [id number] 07:25:00 Test Item Value Reference Range Interpretation Comments PHOSPHORUS (BEAKER) (test code = 3.5 mg/dL 2.5-4.5 604) [id number] 07:25:00 Test Item Value Reference Range Interpretation Comments MAGNESIUM (BEAKER) (test code = 1.7 mg/dL 1.5-3.0 627) BASIC METABOLIC [id number] 07:25:00 Test Item Value Reference Range Interpretation [...] 697) EGFR (BEAKER) (test 77 mL/min/1.73 ESTIMA YUMIKO GFR IS code = 1092) sq m NOT ACCURATE CREATININE CLEARANCE IN PREDICTING GLOMERULAR FILTRATION RATE . ESTIMATED GFR I S NOT APPLICABLE FOR DIALYSIS PATIEN TS. POCT-GLUCOSE [id number] 06:45:00 Test Item Value Reference Range Interpretation Comments POC-GLUCOSE METER 121 mg/dL 70-110 H TESTED AT [facility] [address] (BEAKER) (test code [employer] (Droppy) [facility] = 1538) [place] [address] POCT-GLUCOSE [id number] 22:14:00 Test Item Value Reference Range Interpretation Comments POC-GLUCOSE METER 124 mg/dL 70-110 H TESTED AT [facility] [address] (BEAKER) (test code [employer] [facility] = 1538) [place] [address] VANCOMYCIN LEVEL, [id number] 21:02:00 Test Item Value Reference Range Interpretation Comments VANCOMYCIN TROUGH (BEAKER) (test 9.6 ug/mL 10.0-20.0 L code = 522) POCT-GLUCOSE [id number] 17:22:00 Test Item Value Reference Range Interpretation Comments POC-GLUCOSE METER 98 mg/dL 70-110 TESTED AT [facility] [address] (BEAKER) (test code = [facility] 1537) [place] [address] POCT-GLUCOSE [id number] 11:36:00 Test Item Value Reference Range Interpretation Comments POC-GLUCOSE METER 127 mg/dL 70-110 H TESTED AT [facility] [address] (BEAKER) (test code [facility] = 1538) [place] [address] WOUND CULTURE + GRAM [id number] 11:05:00 Test Item Value Reference Interpretation Comments [...] 1123) GRAM STAIN RESULT No organisms seen (AKER) (test code = 084289) POCT-GLUCOSE [id number] 05:54:00 Test Item Value Reference Range Interpretation Comments POC-GLUCOSE METER 116 mg/dL 70-110 H TESTED AT [facility] [address] (BEAKER) (test code [facility] = 1538) [place] [address] [id number] 03:42:00 Test Item Value Reference Range Interpretation Comments PHOSPHORUS (BEAKER) (test code = 3.8 mg/dL 2.5-4.5 604) [id number] 03:42:00 Test Item Value Reference Range Interpretation Comments MAGNESIUM (BEAKER) (test code = 1.9 mg/dL 1.5-3.0 627) BASIC METABOLIC [id number] 03:42:00 Test Item Value Reference Range Interpretation [...] 697) EGFR (BEAKER) (test 56 mL/min/1.73 ESTIMA YUMIKO GFR IS code = 1092) sq m NOT ACCURATE CREATININE CLEARANCE IN PREDICTING GLOMERULAR FILTRATION RATE . ESTIMATED GFR I S NOT APPLICABLE FOR DIALYSIS PATIEN TS. CBC W/PLT COUNT & AUTO [id number] 03:21:00 Test Item Value Reference Range Interpretation [...] PERCENT (BEAKER) (test code = 2801) POCT-GLUCOSE [id number] 20:55:00 Test Item Value Reference Range Interpretation Comments POC-GLUCOSE METER 122 mg/dL 70-110 H TESTED AT [facility] [address] (BEAKER) (test code [facility] = 1538) [place] [address] POCT-GLUCOSE [id number] 16:19:00 Test Item Value Reference Range Interpretation Comments POC-GLUCOSE METER 136 mg/dL 70-110 H TESTED AT [facility] [address] (BEAKER) (test code [facility] = 1538) [place] [address] HEMOGLOBIN AND [id number] 14:19:00 Test Item Value Reference Range Interpretation Comments HEMOGLOBIN (BEAKER) (test code = 8.1 GM/DL 12.0-15.5 L 410) HEMATOCRIT (BEAKER) (test code = 24.9 % 36.0-46.0 L 411) POCT-GLUCOSE [id number] 12:13:00 Test Item Value Reference Range Interpretation Comments POC-GLUCOSE METER 142 mg/dL 70-110 H TESTED AT [facility] [address] (BEAKER) (test code [facility] = 1538) [place] [address] POCT-GLUCOSE [id number] 06:02:00 Test Item Value Reference Range Interpretation Comments POC-GLUCOSE METER 109 mg/dL 70-110 TESTED AT [facility] [address] (BEAKER) (test code [facility] = 1538) [place] [address] POCT-GLUCOSE [id number] 05:38:00 Test Item Value Reference Range Interpretation Comments POC-GLUCOSE METER 150 mg/dL 70-110 H TESTED AT [facility] [address] (BEAKER) (test code [facility] = 1538) [place] [address] TYPE AND SCREEN, [id number] 03:11:00 Test Item Value Reference Range Interpretation Comments ABO/RH AUTOMATED (BEAKER) (test B Positive code = 2260) AB SCREEN (BEAKER) (test code = Negative 923) HEMOGLOBIN AND [id number] 02:41:00 Test Item Value Reference Range Interpretation Comments HEMOGLOBIN (BEAKER) (test code = 5.9 GM/DL 12.0-15.5 LL 410) HEMATOCRIT (BEAKER) (test code = 18.2 % 36.0-46.0 LL 411) COMPREHENSIVE METABOLIC [id number] 01:43:00 Test Item Value Reference Range Interpretation [...] 347) EGFR (BEAKER) (test 43 mL/min/1.73 ESTIMA YUMIKO GFR IS code = 1092) sq m NOT ACCURATE CREATININE CLEARANCE IN PREDICTING GLOMERULAR FILTRATION RATE . ESTIMATED GFR I S NOT APPLICABLE FOR DIALYSIS PATIEN TS. [id number] 01:36:00 Test Item Value Reference Range Interpretation Comments PHOSPHORUS (BEAKER) (test code = 3.3 mg/dL 2.5-4.5 604) [id number] 01:36:00 Test Item Value Reference Range Interpretation Comments MAGNESIUM (BEAKER) (test code = 1.9 mg/dL 1.5-3.0 627) LACTIC ACID, VENOUS, WHOLE [id number] 01:29:00 Test Item Value Reference Range Interpretation Comments LACTATE BLOOD VENOUS (2) (BEAKER) 0.8 mmol/L 0.5-2.2 (test code = 2872) Effective 07/19/2015: Units/Reference Range ChangeNew: 0.5-2.2 mmol/L Previous: 5-20 mg/dLCBC W/PLT COUNT & AUTO [id number] 01:25:00 Test Item Value Reference Range Interpretation [...] PERCENT (BEAKER) (test code = 2801) POCT-GLUCOSE [id number] 21:52:00 Test Item Value Reference Range Interpretation Comments POC-GLUCOSE METER 113 mg/dL 70-110 H TESTED AT [facility] [address] (BEAKER) (test code [facility] = 1538) [place] [address] CT, EXTREMITY, LOWER WITHOUT CONTRAST, [id number] 19:15:00FINAL REPORT CT scan of the right [...] fluid is seen within this abscess. Signed: Alexandrea Blanco Verified Date/Time: 11/07/2017 19:15:59 Reading Location: [address] Consult Reading Room RAD, HIP, 2 VIEWS, [id number] 16:19:00Reason for exam:->HIP PAIN FINAL REPORT INDICATION:Right hip pain status post right hip replacement ninedays ago. COMPARISON: October 29, 2017 TECHNIQUE: Right hip radiograph two views. FINDINGS / IMPRESSION:Total right hip replacement is well positioned and normally aligned on AP and frog-leg lateral views. No fracture is demonstrated. Residual air in the lateral hip soft tissues noted. Signed: Sandro Bauer Verified Date/Time: 11/07/2017 16:19:47 Reading Location: [facility] Women CBC W/PLT COUNT & AUTO [id number] 16:00:00 Test Item Value Reference Range Interpretation [...] (BEAKER) (test code Normal = 762) C-REACTIVE [id number] 15:30:00 Test Item Value Reference Range Interpretation Comments C-REACTIVE PROTEIN (BEAKER) (test 47.39 mg/dL 0.00-0.50 H code = 676) COMPREHENSIVE METABOLIC [id number] 15:30:00 Test Item Value Reference Range Interpretation [...] 347) EGFR (BEAKER) (test 43 mL/min/1.73 ESTIMA YUMIKO GFR IS code = 1092) sq m NOT ACCURATE CREATININE CLEARANCE IN PREDICTING GLOMERULAR FILTRATION RATE . ESTIMATED GFR I S NOT APPLICABLE FOR DIALYSIS PATIEN TS. BASIC METABOLIC [id number] 06:26:00 Test Item Value Reference Range Interpretation [...] PATIEN TS. CBC W/PLT COUNT & AUTO [id number] 06:12:00 Test Item Value Reference Range Interpretation [...] L 0.00-0.20 (test code = 417) POCT-GLUCOSE [id number] 05:55:00 Test Item Value Reference Range Interpretation Comments POC-GLUCOSE METER 120 mg/dL 70-110 H TESTED AT [facility] [address] (BEAKER) (test code [facility] = 1538) [place] [address] POCT-GLUCOSE [id number] 21:07:00 Test Item Value Reference Range Interpretation Comments POC-GLUCOSE METER 121 mg/dL 70-110 H TESTED AT [facility] [address] (BEAKER) (test code [employer] (Droppy) [facility] = 1538) [place] [address] POCT-GLUCOSE [id number] 17:45:00 Test Item Value Reference Range Interpretation Comments POC-GLUCOSE METER 131 mg/dL 70-110 H TESTED AT [facility] [address] (BEAKER) (test code [facility] = 1538) [place] [address] HEMOGLOBIN AND [id number] 14:26:00 Test Item Value Reference Range Interpretation Comments HEMOGLOBIN (BEAKER) (test code = 7.9 GM/DL 12.0-15.0 L 410) HEMATOCRIT (BEAKER) (test code = 24.6 % 36.0-45.0 L 411) POCT-GLUCOSE [id number] 11:22:00 Test Item Value Reference Range Interpretation Comments POC-GLUCOSE METER 134 mg/dL 70-110 H TESTED AT [facility] [address] (BEAKER) (test code [facility] = 1538) [place] [address] BASIC METABOLIC [id number] 05:16:00 Test Item Value Reference Range Interpretation [...] 697) EGFR (BEAKER) (test 62 mL/min/1.73 ESTIMA YUMIKO GFR IS code = 1092) sq m NOT ACCURATE CREATININE CLEARANCE IN PREDICTING GLOMERULAR FILTRATION RATE . ESTIMATED GFR I S NOT APPLICABLE FOR DIALYSIS PATIEN TS. Specimen recollected. [id number] 04:56:00 Test Item Value Reference Range Interpretation Comments POC-GLUCOSE METER 141 mg/dL 70-110 H TESTED AT [facility] [address] (BEAKER) (test code [facility] = 1538) [place] [address] HEMOGLOBIN AND [id number] 04:10:00 Test Item Value Reference Range Interpretation [...] few 965) CBC W/PLT COUNT & AUTO [id number] 21:34:00 Test Item Value Reference Range Interpretation [...] 6.5-10.5 (BEAKER) (test code = 754) POCT-GLUCOSE [id number] 21:17:00 Test Item Value Reference Range Interpretation Comments POC-GLUCOSE METER 126 mg/dL 70-110 H TESTED AT [facility] [address] (BEAKER) (test code [facility] = 1538) [place] [address] POCT-GLUCOSE [id number] 18:04:00 Test Item Value Reference Range Interpretation Comments POC-GLUCOSE METER 117 mg/dL 70-110 H TESTED AT [facility] [address] (BEAKER) (test code [facility] = 1538) [place] [address] POCT-GLUCOSE [id number] 11:38:00 Test Item Value Reference Range Interpretation Comments POC-GLUCOSE METER 133 mg/dL 70-110 H TESTED AT [facility] [address] (BEAKER) (test code [facility] = 1538) [place] [address] BASIC METABOLIC [id number] 04:20:00 Test Item Value Reference Range Interpretation [...] 697) EGFR (BEAKER) (test 82 mL/min/1.73 ESTIMA YUMIKO GFR IS code = 1092) sq m NOT ACCURATE CREATININE CLEARANCE IN PREDICTING GLOMERULAR FILTRATION RATE . ESTIMATED GFR I S NOT APPLICABLE FOR DIALYSIS PATIEN TS. HEMOGLOBIN AND [id number] 04:11:00 Test Item Value Reference Range Interpretation Comments HEMOGLOBIN (BEAKER) (test code = 8.1 GM/DL 12.0-15.0 L 410) HEMATOCRIT (BEAKER) (test code = 25.6 % 36.0-45.0 L 411) POCT-GLUCOSE [id number] 04:03:00 Test Item Value Reference Range Interpretation Comments POC-GLUCOSE METER 151 mg/dL 70-110 H TESTED AT [facility] [address] ([facility]) (test code [facility] = 1538) [place] [address] RAD, HIP, 1 VIEW, [id number] 21:16:00Reason for exam:->postopShould this be performed at the bedside?->YesFINAL REPORT Exam: AP hip CLINICAL INDICATION: Right hip arthroplasty IMPRESSION: Compared with intraoperative image performed earlier today at 1400 hours. The patient is status post a right hip arthroplasty. The alignment is near anatomic. No definite evidence of a periprosthetic fracture. As before, postoperative changes are noted in the adjacent soft tissues. Signed: Jarad Garciaeport Verified Date/Time: 10/29/2017 21:16:21 Reading Location: [address] ading Room POCT-GLUCOSE [id number] 20:20:00 Test Item Value Reference Range Interpretation Comments POC-GLUCOSE METER 76 mg/dL 70-110 TESTED AT [facility] [address] ([facility]) (test code = [facility] 1538) [place] [address] POCT-GLUCOSE [id number] 15:13:00 Test Item Value Reference Range Interpretation Comments POC-GLUCOSE METER 150 mg/dL 70-110 H TESTED AT [facility] [address] ([facility]) (test code [facility] = 1538) [place] [address] RAD, HIP, OPERATIVE, [id number] 14:41:00Reason for exam:->RequiredFINAL REPORT RIGHT HIP ONE VIEW HISTORY: Right hip pain, right hip arthroplasty COMPARISON: None FINDINGS: Single intraoperative image of the right hip/low pelvis shows in progress changes of right hip total arthroplasty. A reamer is present in the proximal right femur. The acetabular region is obscured by overlying hardware. Signed: Ceci Aldricheport Verified Date/Time: 10/29/2017 14:41:51 Reading Location: [facility] Radiology Reading Room POCT- GLUCOSE [id number] 09:53:00 Test Item Value Reference Range Interpretation Comments POC-GLUCOSE METER 104 mg/dL 70-110 TESTED AT [facility] [address] ([facility]) (test code [facility] = 1538) [place] [address] BASIC METABOLIC [id number] 12:23:00 Test Item Value Reference Range Interpretation [...] 697) EGFR (BEAKER) (test 77 mL/min/1.73 ESTIMA YUMIKO GFR IS code = 1092) sq m NOT ACCURATE CREATININE CLEARANCE IN PREDICTING GLOMERULAR FILTRATION RATE . ESTIMATED GFR I S NOT APPLICABLE FOR DIALYSIS PATIEN TS. URINALYSIS W/ [id number] 12:21:00 Test Item Value Reference Range Interpretation [...] code = 1663) SOURCE(BEAKER) (test code = 6005) CBC W/PLT COUNT & AUTO [id number] 12:18:00 Test Item Value Reference Range Interpretation [...] L 0.00-0.20 (test code = 417) MRSA [id number] 08:33:00 Test Item Value Reference Range Interpretation Comments CULTURE (BEAKER) (test code No MRSA isolated = 1095)
[2020-10-12 20:45] LABS: Urine Blood Trace-lysed (Negative); Urine Glucose Negative (Negative); Urine Protein 3+ (Negative)
[2020-10-12] MEDS ORDERED: HYDROMORPHONE HCL 1 MG/ML INJ ONE ×2 (20:55→23:58)
[2020-10-12] MEDS ORDERED: ONDANSETRON 4 MG/2 ML VIAL ONE (20:55)
[2020-10-12] MEDS ORDERED: NA CHLORIDE 0.9% 1,000 ML ONE (20:55)
[2020-10-12 22:12] LABS: Absolute Lymphocytes (CBC) 0.6 K/uL (0.7-4.9); Basophils % 0.6 % (0-1.3); Hematocrit 32.4 % (36.0-45.0); Lymphocytes % 9.1 % (15.3-44.8); MPV 8.2 fL (7.6-11.3); RBC Red Blood Cell Count 4.85 M/uL (3.86-4.86)
[2020-10-12 22:23] LABS: Albumin 3.1 g/dL (3.4-5.0); Bilirubin Direct 0.2 mg/dL (0-0.2); Bilirubin Total 0.6 mg/dL (0.2-1.0); Protein, Total 7.7 g/dL (6.4-8.2)
[2020-10-12 22:27] LABS: Potassium 2.5 mmol/L (3.5-5.1)
[2020-10-12 22:50] LABS: Blood Morphology Comment NOTED (NOT SEEN); Platelet Estimate ADEQ; White Blood Cell Scan OK (OK)
[2020-10-12 22:51] LABS: Anisocytosis 1+; Hypochromasia 1+; Ovalocytes 1+
[2020-10-12] MEDS ORDERED: POTASSIUM CL SA 10 MEQ TAB PO ONE ×2 (23:03→23:06)
[2020-10-12] MEDS ORDERED: KCL 20 MEQ/100 mL IVPB 20 MEQ/100 ML BAG IV ONE (23:05)
[2020-10-13] MEDS ORDERED: ONDANSETRON 4 MG (ODT) TAB ONE (01:47)
--- NOTE | 2020-10-13 03:53 | ER ---
Nurse's Notes [facility] Name: Sade Galdamez Age: 60 yrs Sex: Female : 1960 Arrival Date: 10/12/2020 Time: 14:44 Bed 24 Private MD: Diagnosis: Hypokalemia;Chronic pain, not elsewhere classified Presentation: 10/12 14:44 Chief complaint: Patient states: tumor to groin that is painful. Pt reports she started aa5 chemotherapy 1 week ago. Pt reports she takes Morphine 4mg and Tramadol as needed for pain at home. 14:44 Coronavirus screen: At this time, the client does not indicate any symptoms associated aa5 with coronavirus-19. Ebola Screen: Patient negative for fever greater than or equal to 101.5 degrees Fahrenheit, and additional compatible Ebola Virus Disease symptoms. Initial Sepsis Screen: Does the patient meet any 2 criteria? No. Patient's initial sepsis screen is negative. Does the patient have a suspected source of infection? No. Patient's initial sepsis screen is negative. Risk Assessment: Do you want to hurt yourself or someone else? Patient reports no desire to harm self or others. Onset of symptoms was October 12, 2020. 14:44 Acuity: ABDIRIZAK 3 aa5 14:44 Method Of Arrival: EMS: [facility] aa5 Historical: - Allergies: 14:44 Iodine; aa5 - PMHx: 14:44 breast cancer; Hypertension; Tumor to groin area; Chemotherapy; aa5 - PSHx: 14:44 Simone mastectomy; hysterectomy; aa5 - Immunization history:: Adult Immunizations unknown. - Social history:: Smoking status: Patient denies any tobacco usage or history of. - Family history:: not pertinent. Screenin:42 Abuse screen: Denies threats or abuse. Denies injuries from another. Nutritional ld1 screening: No deficits noted. Tuberculosis screening: No symptoms or risk factors identified. Fall Risk None identified. Assessment: 19:42 General: Appears in no apparent distress. uncomfortable, Behavior is cooperative, ld1 appropriate for age, anxious. Pain: Complains of pain in left femoral area Pain does not radiate. Pain currently is 9 out of 10 on a pain scale. Quality of pain is described as throbbing, Pain began 1 day ago. Is continuous. Neuro: Level of Consciousness is awake, alert, obeys commands, Oriented to person, place, time, situation. Cardiovascular: Capillary refill < 3 seconds Patient's skin is warm and dry. Respiratory: Airway is patent Respiratory effort is even, unlabored, Respiratory pattern is regular, symmetrical. GI: Abdomen is round non-distended. : No signs and/or symptoms were reported regarding the genitourinary system. EENT: No signs and/or symptoms were reported regarding the EENT system. Derm: No signs and/or symptoms reported regarding the dermatologic system. Musculoskeletal: No signs and/or symptoms reported regarding the musculoskeletal system. 21:00 Reassessment: Patient appears in no apparent distress at this time. Patient and/or ld1 family updated on plan of care and expected duration. Pain level reassessed. 22:01 Reassessment: Patient appears in no apparent distress at this time. Patient is alert, ld1 oriented x 3, equal unlabored respirations, skin warm/dry/pink. 23:25 Reassessment: Patient appears in no apparent distress at this time. Patient and/or ld1 family updated on plan of care and expected duration. Pain level reassessed. Patient is alert, oriented x 3, equal unlabored respirations, skin warm/dry/pink. 10/13 00:10 Reassessment: attempted IV access L AC unsuccessful, bleeding controlled, bandage bb applied. 2nd attempt to L AC successful but only patent [address] Moss notified. 01:09 Reassessment: Patient and/or family updated on plan of care and expected duration. Pain ea level reassessed. Patient is alert, oriented x 3, equal unlabored respirations, skin warm/dry/pink. 03:30 Reassessment: Patient and/or family updated on plan of care and expected duration. Pain ea level reassessed. Patient is alert, oriented x 3, equal unlabored respirations, skin warm/dry/pink. 04:12 Reassessment: Patient and/or family updated on plan of care and expected duration. Pain ea level reassessed. Patient is alert, oriented x 3, equal unlabored respirations, skin warm/dry/pink. Discharge instruction given to patient verbalized the understanding of instruction. Pt awaiting on ride, reports she doesn't have a ride until in the AM. 07:00 Reassessment: RECD REPORT FROM MULUGETA ROSEN. 60YO WF P/W PAIN FROM R GROIN TUMOR. PT D/C bp ON HOLD AWAITING TRANSPORT. Vital Signs: 10/12 14:44 BP 162 / 86; Pulse 97; Resp 20 S; Temp 97.9(TE); Pulse Ox 95% on R/A; Weight 135.17 kg aa5 (R); Height 5 ft. 5 in. (165.10 cm) (R); Pain 10/10; 19:42 BP 145 / 106; Pulse 97; Resp 18; Pulse Ox 100% on R/A; ld1 20:00 BP 163 / 89; Pulse 103; Resp 18; Pulse Ox 99% on R/A; ld1 21:00 BP 153 / 93; Pulse 91; Resp 18; Pulse Ox 99% on R/A; ld1 22:03 BP 154 / 75; Pulse 83; Resp 18; Pulse Ox 99% on R/A; ld1 23:25 BP 174 / 98; Pulse 86; Resp 18; Pulse Ox 96% on R/A; ld1 10/13 03:30 BP 167 / 70; Pulse 90; Resp 19; Pulse Ox 99% ; ea 04:40 BP 154 / 67; Pulse 90; Resp 18; Pulse Ox 97% ; ea 10/12 14:44 Body Mass Index 49.59 (135.17 kg, 165.10 cm) aa5 ED Course: 10/12 14:44 Patient arrived in ED. aa5 14:44 Arm band placed on. aa5 14:58 Triage completed. aa5 19:34 Katina Gonzalez, SILAS is Primary Nurse. ld1 19:42 Patient has correct armband on for positive identification. Placed in gown. Bed in low ld1 position. Side rails up X2. Pulse ox on. NIBP on. Door closed. Noise minimized. Warm blanket given. 19:42 No provider procedures requiring assistance completed. ld1 20:00 Scott Cortez MD is Attending Physician. ma2 20:45 Urine collected: clean catch specimen, cloudy. mh5 21:34 Initial lab(s) drawn, by me, sent to lab. Inserted saline lock: 24 gauge in right ca1 wrist, using aseptic technique. Blood collected. 22:27 Notified ED physician of a critical lab result(s). K 2.5 Notified primary nurse of. ca1 07/30 04:12 IV discontinued, intact, bleeding controlled, No redness/swelling at site. Pressure ea dressing applied. Administered Medications: 10/12 21:36 Drug: NS 0.9% 1000 ml Route: IV; Rate: 1 bolus; Site: right wrist; ca1 10/13 04:41 Follow up: Response: No adverse reaction; IV Intake: 1000ml ea 07:07 Follow up: IV Status: Completed infusion; IV Intake: 1000ml 10/12 21:38 Drug: Zofran (Ondansetron) 4 mg Route: IVP; Site: right wrist; ca1 10/13 04:11 Follow up: Response: No adverse reaction ea 10/12 21:40 Drug: Dilaudid (HYDROmorphone) 1 mg {Note: rass 0.} Route: IVP; Site: right wrist; ca1 10/13 04:12 Follow up: Response: No adverse reaction ea 10/12 22:52 Drug: Potassium Chloride 20 mEq Route: IV; Rate: calculated rate; Site: right hand; ld1 10/13 07:07 Follow up: IV Status: Completed infusion; IV Intake: 100ml 10/12 22:52 Drug: Potassium Chloride Liquid 40 mEq Route: PO; ld1 10/13 04:11 Follow up: Response: No adverse reaction ea 04:11 Drug: Ketorolac 30 mg Route: IVP; Site: right hand; ea 04:11 Follow up: Response: No adverse reaction ea Intake: 04:41 IV: 1000ml; Total: 1000ml. ea 07:07 IV: 100ml; Total: 1100ml. bp 07:07 IV: 1000ml; Total: 2100ml. bp Outcome: 03:52 Discharge ordered by . maLivia 04:12 Condition: stable ea 04:12 Discharge instructions given to patient, Instructed on discharge instructions, follow up and referral plans. medication usage, Demonstrated understanding of instructions, follow-up care, medications, Prescriptions given X 1. 07:42 Discharged to home via wheelchair, with friend. tr6 07:42 Patient left the ED. tr6 Signatures: Yany Gonzalez RN RN bb Calderon, Audri, RN RN aa5 Martinez, Maria Aurelia Osborne RN RN ea Peltier, Brian, RN RN bp Alzahri, Mohammad, MD MD ma2 Gisela Aguila RN RN ca1 Katina Gonzalez RN RN ld1 Lakeisha Ortez RN RN tr6 Corrections: (The following items were deleted from the chart) 10/12 15:00 14:44 Method Of Arrival: Wheelchair aa5 aa5 22:01 21:00 Reassessment: Patient appears in no apparent distress at this time. Patient is ld1 alert, oriented x 3, equal unlabored respirations, skin warm/dry/pink. ld1
--- NOTE | 2020-10-13 03:53 | EDPHYS ---
Physician Documentation [facility] Name: Sade Galdamez Age: 60 yrs Sex: Female : 1960 Arrival Date: 10/12/2020 Time: 14:44 Bed 24 Private MD: ED Physician Scott Cortez HPI: 10/12 20:07 This 60 yrs old Black Female presents to ER via EMS with complaints of Groin Pain. ma2 20:07 This 60 yrs old Black Female presents to ER via EMS with complaints of Groin Pain. ma2 20:07 Associated signs and symptoms: Pertinent positives: Pertinent negatives: diarrhea, ma2 hematuria, urinary frequency. Severity of symptoms: At their worst the symptoms were mild, in the emergency department the symptoms are unchanged. The patient has experienced similar episodes in the past. Patient has breast cancer, and left groin sarcoma, she gets chemotherapy infusion 3 times a week, she also have a chronic left groin pain that is worse at night, she takes morphine, pain was worse last night and that is why she is here today, this is the same exact pain she had she does not have any other symptoms, she has follow-up with her oncologist tomorrow morning. She wants pain medicine at this time.. Historical: - Allergies: 14:44 Iodine; aa5 - PMHx: 14:44 breast cancer; Hypertension; Tumor to groin area; Chemotherapy; aa5 - PSHx: 14:44 Simone mastectomy; hysterectomy; aa5 - Immunization history:: Adult Immunizations unknown. - Social history:: Smoking status: Patient denies any tobacco usage or history of. - Family history:: not pertinent. ROS: 20:07 Constitutional: Negative for fever, chills, and weight loss. ma2 20:07 All other systems are negative. Exam: 20:07 Constitutional: This is a well developed, well nourished patient who is awake, alert, ma2 and in no acute distress. Head/Face: Normocephalic, atraumatic. Eyes: Pupils equal round and reactive to light, extra-ocular motions intact. Lids and lashes normal. Conjunctiva and sclera are non-icteric and not injected. Cornea within normal limits. Periorbital areas with no swelling, redness, or edema. ENT: Nares patent. No nasal discharge, no septal abnormalities noted. Tympanic membranes are normal and external auditory canals are clear. Oropharynx with no redness, swelling, or masses, exudates, or evidence of obstruction, uvula midline. Mucous membranes moist. Neck: Trachea midline, no thyromegaly or masses palpated, and no cervical lymphadenopathy. Supple, full range of motion without nuchal rigidity, or vertebral point tenderness. No Meningismus. Chest/axilla: Normal chest wall appearance and motion. Nontender with no deformity. No lesions are appreciated. Cardiovascular: Regular rate and rhythm with a normal S1 and S2. No gallops, murmurs, or rubs. Normal PMI, no JVD. No pulse deficits. Respiratory: Lungs have equal breath sounds bilaterally, clear to auscultation and percussion. No rales, rhonchi or wheezes noted. No increased work of breathing, no retractions or nasal flaring. Abdomen/GI: Soft, non-tender, with normal bowel sounds. No distension or tympany. No guarding or rebound. No evidence of tenderness throughout. Back: No spinal tenderness. No costovertebral tenderness. Full range of motion. Female : Normal external genitalia. Left groin exam is unremarkable, she has a deep pain in the area over her left inguinal canal on the left side, however skin is within normal limits, she has an area of the upper thigh skin graft, however that is dry and well-healed and nontender. No issue at that site. Skin: Warm, dry with normal turgor. Normal color with no rashes, no lesions, and no evidence of cellulitis. MS/ Extremity: Pulses equal, no cyanosis. Neurovascular intact. Full, normal range of motion. Neuro: Awake and alert, GCS 15, oriented to person, place, time, and situation. Cranial nerves II-XII grossly intact. Motor strength 5/5 in all extremities. Sensory grossly intact. Cerebellar exam normal. Normal gait. Vital Signs: 14:44 BP 162 / 86; Pulse 97; Resp 20 S; Temp 97.9(TE); Pulse Ox 95% on R/A; Weight 135.17 kg aa5 (R); Height 5 ft. 5 in. (165.10 cm) (R); Pain 10/10; 19:42 BP 145 / 106; Pulse 97; Resp 18; Pulse Ox 100% on R/A; ld1 20:00 BP 163 / 89; Pulse 103; Resp 18; Pulse Ox 99% on R/A; ld1 21:00 BP 153 / 93; Pulse 91; Resp 18; Pulse Ox 99% on R/A; ld1 22:03 BP 154 / 75; Pulse 83; Resp 18; Pulse Ox 99% on R/A; ld1 23:25 BP 174 / 98; Pulse 86; Resp 18; Pulse Ox 96% on R/A; ld1 10/13 03:30 BP 167 / 70; Pulse 90; Resp 19; Pulse Ox 99% ; ea 04:40 BP 154 / 67; Pulse 90; Resp 18; Pulse Ox 97% ; ea 10/12 14:44 Body Mass Index 49.59 (135.17 kg, 165.10 cm) aa5 MDM: 10/12 20:00 Patient medically screened. [facility] 20:07 Differential diagnosis: urinary tract infection, Soft tissue sarcoma pain, in the [facility] setting of chemotherapy, will get blood work pain control, she has morphine at home, will follow up tomorrow with her oncologist. Vital signs within normal limits. 23:00 ED course: Patient has hypokalemia, potassium was 2.5, however there is no beds [facility] available in our hospital, I have discussed with the hospitalist as well, best plan at this time is to replete potassium continue to monitor check mag, will recheck potassium level after 4 hours if it still persistently below 3, we will admit however patient is going to stay in the ER as an ER hold as there is no beds in the hospital.. 10/13 03:51 Data reviewed: vital signs, nurses notes. Counseling: I had a detailed discussion with ma2 the patient and/or guardian regarding: the historical points, exam findings, and any diagnostic results supporting the discharge/admit diagnosis, the presence of at least one elevated blood pressure reading (>120/80) during this emergency department visit, the need for outpatient follow up. Response to treatment: the patient's symptoms have markedly improved after treatment. 10/12 20:01 Order name: Basic Metabolic Panel; Complete Time: 22:28 [facility] 10/12 20:01 Order name: CBC with Diff; Complete Time: 23:00 [facility] 10/12 20: Order name: Hepatic Function; Complete Time: 22:28 [facility] 10/12 20:01 Order name: Lipase; Complete Time: 22:28 [facility] 10/12 20:45 Order name: Urine Dipstick-Ancillary; Complete Time: 21:02 [facility] 10/12 22:18 Order name: CBC Smear Scan; Complete Time: 23:00 [facility] 10/12 22:30 Order name: Magnesium; Complete Time: 23:15 [facility] 10/13 00:47 Order name: Potassium: recheck 0200 bb 10/13 02:26 Order name: Potassium; Complete Time: 03:51 10/12 20:01 Order name: IV Saline Lock; Complete Time: 21:52 [facility] 10/12 20:01 Order name: Labs collected and sent; Complete Time: 21:52 [facility] 10/12 20:01 Order name: Urine Dipstick-Ancillary (obtain specimen); Complete Time: 20:44 [facility] Administered Medications: 10/12 21:36 Drug: NS 0.9% 1000 ml Route: IV; Rate: 1 bolus; Site: right wrist; [facility] 10/13 04:41 Follow up: Response: No adverse reaction; IV Intake: 1000ml 07:07 Follow up: IV Status: Completed infusion; IV Intake: 1000ml 10/12 21:38 Drug: Zofran (Ondansetron) 4 mg Route: IVP; Site: right wrist; [facility] 10/13 04:11 Follow up: Response: No adverse reaction 10/12 21:40 Drug: Dilaudid (HYDROmorphone) 1 mg {Note: rass 0.} Route: IVP; Site: right wrist; ca1 10/13 04:12 Follow up: Response: No adverse reaction 10/12 22:52 Drug: Potassium Chloride 20 mEq Route: IV; Rate: calculated rate; Site: right hand; ld1 10/13 07:07 Follow up: IV Status: Completed infusion; IV Intake: 100ml 10/12 22:52 Drug: Potassium Chloride Liquid 40 mEq Route: PO; [facility] 10/13 04:11 Follow up: Response: No adverse reaction 04:11 Drug: Ketorolac 30 mg Route: IVP; Site: right hand; ea 04:11 Follow up: Response: No adverse reaction ea Disposition Summary: 10/13/20 03:52 Discharge Ordered Location: Home ma2 Condition: Stable ma2 Diagnosis - Hypokalemia ma2 - Chronic pain, not elsewhere classified ma2 Followup: ma2 - With: Private Physician - When: Tomorrow - Reason: Continuance of care Discharge Instructions: - Discharge Summary Sheet ma2 - Potassium Content of Foods ma2 - Hypokalemia ma2 Forms: - Medication Reconciliation Form ma2 - Thank You Letter ma2 - Antibiotic Education ma2 - Prescription Opioid Use ma2 Prescriptions: - Potassium Chloride 10 mEq Oral Tablet - take 1 tablet by ORAL route every 12 hours; 30 tablet; Refills: 0, Product ma2 Selection Permitted Signatures: Dispatcher [employer] EDMS Nadja Hernandez RN RN aa5 Aurelia Dominguez RN RN ea Alzahri, Mohammad, MD MD ma2 Gisela Aguila RN RN ca1 Katina Gonzalez RN RN ld1 Jarad Ahn RN bp Corrections: (The following items were deleted from the chart) 05:41 00:47 Potassium ordered. EDMS EDMS
[2020-10-13] MEDS ORDERED: KETOROLAC 30 MG/ML INJ ONE (04:14)
[2020-10-13 07:51] VITALS: TEMP 97.9
[2020-10-13 08:02] VITALS: BP 154/67; O2SAT 97
== END 2020-10-13 07:42 | disposition home or self-care (01) ==
LOC: ER 14:40
DX: R10.32 Left lower quadrant pain (principal); G89.29 Other chronic pain; E87.6 Hypokalemia; Z85.3 Personal history of malignant neoplasm of breast; I10 Essential (primary) hypertension; Z92.21 Personal history of antineoplastic chemotherapy
CPT/HCPCS: 85025; 80048; 36415; 83735; 84132; 80076; 81003; 83690; 99284; J3480; J1170 ×2; J7030; J2405; 96361; 96365; 96366; 96375

== ENCOUNTER 2020-10-27 12:27 | Emergency (ER) | payer OTHER ==
--- OUTSIDE RECORDS SUMMARY | 2020-10-27 12:36 | XMS REPORT | Continuity of Care Document ---
:1960 Author Organization [facility] t Address [address] [place] [address] Care Team Providers Name Role Phone [phone] Primary Care Physician Unavailable SYSTEM, NOT IN Attending Clinician Unavailable SCOTT Attending Clinician Unavailable DIONTE Attending Clinician Unavailable MAYE Attending Clinician Unavailable LEONOR Attending Clinician Unavailable JUAN Attending Clinician Unavailable Nile TEJADA Attending Clinician Unavailable Nile Tejada MD Attending Clinician Boom Carlin MD Attending Clinician Caridad Escalante MD Attending Clinician Isabelle Ramos MD Attending Clinician [phone] Lazaro LYNN Attending Clinician ANA PAULA TAVARES Attending Clinician Unavailable STEVE GARCIA Attending Clinician Unavailable LEONOR Admitting Clinician Unavailable BOOM CARLIN Admitting Clinician Unavailable NARGIS Admitting Clinician Unavailable STEVE GARCIA Admitting Clinician Unavailable Payers Payer Name Policy Type Policy Number Effective Date Expiration Date Vinny nava [facility] MEDICARE [id number] 2020 COMPLETE CHOICE 00:00:00 PLAN 2 MEDICARE PART A [id number] 2020 AND B 00:00:00 [facility] [id number] 2020 HOMAR Portillo - MEDICARE MGD 00:00:00 - [facility] [id number] 2020-Present Problems Condition Condition Condition Status Onset Resolution Last Treating Co mments Source Name Details Category Date Date Treatment Clinician Date Venous Venous Disease Active [facility] obstruct[facility] obstructio 6- [facility] - n n 00:00: Medical 00 [place] Mass of Mass of Disease Active [facility] iliopsoas iliopsoas 6- Luke [facility] - muscle muscle 00:00: Medical group group 00 [place] Pyoderma Pyoderma Disease Active Overview: [facility] gangrenosu gangrenosu 11-10 Post Bret kes - m m 00:00: surgical Medical 00 [place] Hip 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[facility] osteoarthr osteoarthr 10-29 Bret kes - itis itis 00:00: Medical 00 [place] Diabetes Diabetes Disease Active [facility] mellitus mellitus 10-29 [facility] - 00:00: Medical 00 [place] Hypertensi Hypertensi Disease Active [facility] on on 10-29 [facility] - 00:00: Medical 00 [place] Unilateral Unilateral Disease Active [facility] primary primary 10-07 [facility] - osteoarthr osteoarthr 00:00: Me dical itis, itis, 00 [place] right hip right hip Surgical Surgical Disease [...] Stop Date Source Natural father Lung cancer [place] Natural mother Diabetes [facility] Social History Social Habit Start Date Stop Date Quantity Comments Source Sex Assigned At [facility] Tobacco use and 2017-11-18 2017-11-18 Never used [facility] - exposure 00:00:00 00:00:00 [facility] Center Alcohol intake 2017-11-18 2017-11-18 Current drinker [facility] Vinny Orourkekes - 00:00:00 00:00:00 of alcohol Medical Center (finding) Alcohol Comment 2017-10-06 2017-10-06 SOCIALLY [facility] - 00:00:00 00:00:00 [facility] Center Smoking Status Start Date Stop Date Source [facility] Medications Ordered Filled Start Stop Current Ordering Indication Dosage Frequency Signature Comments Components Source Medication Medication Date Date Medication? Clinician (SIG) Name Name folic acid 2020- No 1mg QD Take [address] [facility] [address] (FOLVITE) 1 09-07- tablet (1 Bret kes - MG tablet 00:00: 23:59 mg total) Me dical 00 :00 by mouth Center daily for 30 days. polyethylen 2020- No 17g QD Take [address] [facility] e glycol 09-07-27 by mouth [facility] - (GLYCOLAX) 00:00: 23:59 daily for M edical 17 gram 00 :00 3 days. Center packet gabapentin Yes 100mg QD Take [address] (NEURONTIN) -23 mg by [facility] - 100 MG 17:17: mouth Medical capsule 44 daily. Center famotidine 2020- No 20mg Take [address] [facility] (PEPCID) 20 09-06- tablet (20 L ukes - MG tablet [...] 150mg Inject [address] (LOVENOX) 09-06- mL (150 mg Vicky es - 150 mg/mL 00:00: 23:59 total) Medic al injection 00 :00 subcutaneo Cent er usly every 12 (twelve) hours for 30 days. cyclobenzap 2020- No 10mg Take [address] [facility] rine 09-06-03 tablet (10 [facility] - (FLEXERIL) 00:00: 23:59 mg total) M edical 10 MG 00 :00 by mouth 3 Center tablet (three) times daily as needed for Muscle spasms for up to 10 days. HYDROmorpho No 2mg Take [address] [facility] ne 09-06 07-03 tablet (2 [facility] - (DILAUDID) 00:00: 23:59 mg total) M edical 2 MG tablet 00 :00 by mouth Cent er every 4 (four) hours as needed for up to 10 days. Max Daily Amount: 12 mg enoxaparin No 140mg Inject [facility] (LOVENOX) 09-06- 0.93 mLs [facility] - 150 mg/mL 00:00: 00:00 (140 mg Medi perla injection 00 :00 total) Center subcutaneo usly every 12 (twelve) hours for 30 days. apixaban No 5mg Q.5D Take [address] [facility] (ELIQUIS) 5 09-01- tablet (5 Bret kes - mg Tab [...] Inject 1 g [facility] t chloride 9- intravenou [facility] - 0.9% (NS) 00:00: sly every Med ical PF Soln 20 00 8 (eight) Cent er mL with hours. meropenem 1 gram SolR 1 g apixaban 2020- No 5mg Q.5D Take [address] (ELIQUIS) 5 - 06-11 tablet (5 Bret kes - mg Tab 00:00: 00:00 mg total) Medic al tablet 00 :00 by mouth 2 Center (two) times daily. Vital Signs Vital Name Observation Time Observation Value Comments Source Systolic blood 2020-09-06 16:21:00 161 mm[Hg] [facility] Diastolic blood 2020-09-06 16:21:00 75 mm[Hg] [facility] Heart rate 2020-09-06 16:21:00 87 /min [facility] Body temperature 2020-09-06 16:21:00 35.78 Lovely [facility] Respiratory rate 2020-09-06 16:21:00 18 /min [facility] Oxygen saturation in 2020-09-06 16:21:00 97 /min [facility] Arterial blood by Medical Ce nter Pulse oximetry Body weight 2020-09-06 06:00:00 141.658 kg [facility] BMI 2020-09-06 06:00:00 50.41 kg/m2 [facility] Body height 2020-08-20 18:00:00 167.6 cm [facility] Procedures Procedure Date / Time Performed Performing Clinician [facility] e CT CHEST WITH IV CONTRAST 2020-09-05 12:35:00 Vandana Tejada [facility] COMPREHENSIVE METABOLIC 2020-09-05 05:16:00 Vandana Tejada [facility] 2D ECHO W/ DOPPLER 2020-09-05 01:05:[address] [facility] (CW/PW/COLOR) [facility] SARS-COV2/RT-PCR ([facility] & 2020-09-03 21:48:00 RavinderichTricia quintana [facility] - REF LABS) [facility] CBC W/PLT COUNT & AUTO 2020-09-03 06:17:00 [address] Tejada [facility] CBC (HEMOGRAM ONLY) 2020-09-02 04:36:00 Raegan, Hari Nur [facility] PROTHROMBIN TIME/INR 2020-09-02 04:36:00 Bghigh, Shabana [facility] CBC (HEMOGRAM ONLY) 2020-09-01 03:48:00 Raegan [facility] PROTHROMBIN TIME/INR 2020-09-01 03:48:00 [facility], [facility] US CORE BIOPSY 2020-08-31 18:48:00 Vandana Tejada [place] TISSUE EXAM 2020-08-31 18:37:00 Vandana Tejada [place] VITAMIN B12 AND FOLATE 2020-08-31 04:45:00 Vandana Tejada [facility] CBC (HEMOGRAM ONLY) 2020-08-31 04:45:00 Raegan [facility] PROTHROMBIN TIME/INR 2020-08-31 04:45:00 [facility], [facility] CT ABDOMEN/PELVIS WITH IV 2020-08-30 10:28:[address] [facility] CTA AAA AND RUNOFF 2020-08-30 10:28:00 [facility] BUN AND CREATININE 2020-08-30 05:17:00 [facility] CBC (HEMOGRAM ONLY) 2020-08-30 05:17:00 [facility] PROTHROMBIN TIME/INR 2020-08-30 05:17:00 [facility] HC ARTERIAL DOPPLER LEG 2020-08-29 16:05:00 Gadicherla, Tricia [facility] UNI [facility] CBC (HEMOGRAM ONLY) 2020-08-29 12:50:[address] HEPARIN ASSAY - LOW 2020-08-29 12:50:00 Gadicherar, [facility] - MOLECULAR WEIGHT [facility] CBC (HEMOGRAM ONLY) 2020-08-29 05:03:00 Raegan [facility] PROTHROMBIN TIME/INR 2020-08-29 05:03:00 [facility] BUN AND CREATININE 2020-08-28 16:37:00 [facility] - W/RATIO [facility] VENOUS DOPPLER LEG, LEFT 2020-08-28 12:43:00 Gadicherar, Tricia [facility] CBC (HEMOGRAM ONLY) 2020-08-28 04:42:[address] [facility] PROTHROMBIN TIME/INR 2020-08-28 04:42:00 [facility] SARS-COV2/RT-PCR ([facility] & 2020-08-27 18:10:00 [facility] - REF LABS) [facility] PROTHROMBIN TIME/INR 2020-08-27 12:22:00 [facility], [facility] CBC (HEMOGRAM ONLY) 2020-08-27 04:06:[address] [facility] PROTHROMBIN TIME/INR 2020-08-26 11:47:[address] [facility] [facility] CBC (HEMOGRAM ONLY) 2020-08-26 11:47:00 [facility] CBC (HEMOGRAM ONLY) 2020-08-26 06:00:[address] [facility] PROTHROMBIN TIME/INR 2020-08-25 18:11:00 Kinga Brown [facility] CBC W/PLT COUNT & AUTO 2020-08-25 14:27:00 [facility] DIFFERENTIAL [facility] CBC (HEMOGRAM ONLY) 2020-08-25 06:58:[address] [facility] APTT 2020-08-25 06:49:00 [facility] 2020-08-24 22:45:00 [facility] 2020-08-24 12:42:00 [facility] BASIC METABOLIC PANEL (7) 2020-08-24 05:41:00 BorisTom [facility] CBC (HEMOGRAM ONLY) 2020-08-24 05:41:00 Hari Carlin [facility] APTT 2020-08-24 05:41:00 [facility] 2020-08-23 21:14:00 [facility] CBC (HEMOGRAM ONLY) 2020-08-23 14:11:00 [facility] 2020-08-23 14:11:00 [facility] VENOUS DOPPLER LEG, LEFT 2020-08-23 12:46:[address]Humber[facility]al [facility] BASIC METABOLIC PANEL (7) 2020-08-23 04:08:00 Boris, Tom [facility] CBC (HEMOGRAM ONLY) 2020-08-23 04:08:00 Hari Carlin [facility] BASIC METABOLIC PANEL (7) 2020-08-22 05:37:00 [facility] CBC (HEMOGRAM ONLY) 2020-08-22 05:37:00 Hari Carlin [facility] US EXTREMITY NON-VASCULAR 2020-08-21 14:30:00 Hari Carlin [facility] Center CBC (HEMOGRAM ONLY) 2020-08-21 05:50:00 Hari Carlin [facility] COMPREHENSIVE METABOLIC 2020-08-21 05:50:00 Hari Carlin [facility] PROTHROMBIN TIME/INR 2020-08-21 05:50:00 Hari Carlin [facility] XR HIP 2 VIEWS LEFT 2020-08-20 18:25:00 Hari Carlin [facility] XR LUMBAR SPINE 2 OR 3 2020-08-20 18:20:[address] [facility] VIEWS [facility] XR KNEE 3 VIEWS LEFT 2020-08-20 18:14:00 Hari Carlin [facility] CBC W/PLT COUNT & AUTO 2020-08-20 15:02:[address] [facility] DIFFERENTIAL [facility] COMPREHENSIVE METABOLIC 2020-08-20 15:02:[address] [facility] PANEL [facility] MAGNESIUM 2020-08-20 15:02:00 Hari Carlin [facility] PHOSPHORUS 2020-08-20 15:02:00 RaeganHari [facility] LACTATE DEHYDROGENASE 2020-08-20 15:02:00 Hari Carlin [facility] (LDH) [facility] URIC ACID 2020-08-20 15:02:00 RaeganHari [facility] Plan of Care Planned Activity Planned [...] - Test 00:00:00 TO MEDICARE) [code = [facility] Medicare IPPE (WELCOME TO MEDICARE)] Future Scheduled 2018-11-[address] [facility] - Test 00:00:00 malignant neoplasm of Medica l Center colon (procedure) [code = 145909053] Future Scheduled 2017-10-[address] Bret kes - Test 00:00:00 [facility] (procedure) [code = 79308056] Future Scheduled 2010 SHINGLES VACCINES ([address] [facility] - Test 00:00:00 of 2) [code = SHINGLES Medic al Center VACCINES (1 of 2)] Future Scheduled [address] [facility] - Test 00:00:00 (procedure) [code = Medical Center 81154894] Future Scheduled [address] [facility] - Test 00:00:00 [facility] cervix (procedure) [code = 711042724] Future Scheduled 1979 DTAP/TDAP/TD VACCINES CH I [...] 00:00:00 examination Medical Center (regime/therapy) [code = 862541674] Future Scheduled 1970 Urine screening for [facility] - Test 00:00:00 protein (procedure) Medical Center [code = 164918333] Future Scheduled [address] [facility] - Test 00:00:00 0-64 YRS (1 of 1 - Medical C enter PPSV23) [code = PNEUMOCOCCAL VACCINE 0-64 YRS (1 of 1 - PPSV23)] Future Scheduled [address] [facility] - Test 00:00:00 malignant neoplasm of [facility] breast (procedure) [code = 982034968] Encounters Start End Encounter Admission Attending Care Care Encounter Source Date/Time Date/Time Type Type Clinicians Facility Department ID 2020-10-17 Outpatient SYSTEM, JUAN MARTINEZ [id number] 12:21:12 BRINDA gallego 2020-10-14 2020-10-23 Inpatient JAMES CHAVEZ, JUAN [place] [id number] 16:40:00 16:38:00 SUE gallego 2020-10-21 2020-10-21 Inpatient THEA RAPP MDA MDA [id number] 18:46:01 19:27:32 BOB gallego 2020-10-21 2020-10-21 Inpatient JUAN RAPP MDA [id number] 14:16:27 14:16:55 BOB Holland o n 2020-10-20 2020-10-20 Inpatient THEA RAPP MDA MDA [id number] 20:10:36 20:13:24 BOB Holland o n 2020-10-17 2020-10-17 Inpatient THEA VILLAVICENCIO MDA MDA [id number] 15:00:32 15:42:49 BIJU Carsoners o n 2020-10-16 2020-10-16 Inpatient THEA RAPP MDA MDA [id number] 09:18:38 09:49:47 BOB Holland o n 2020-10-15 2020-10-15 Inpatient THEA RAPP MDA MDA [id number] 11:01:50 11:06:18 BOB Holland o n 2020-10-14 2020-10-14 Emergency THEA GALVEZ MDA MDA [id number] 19:53:40 20:54:56 ALEXYS Sandra so n 2020-10-14 2020-10-14 Emergency STEVEN PORTER MDA MDA [id number] 17:59:26 17:59:31 Holland o n Results Test Description Test Time Test Comments Results Result Comments Source Tissue Exam 2020-09-14 10:56:00 Test Item Value Reference Range Interpretation Comme nts Case Report (test code = 104) Surgical Pathology Report Case: [id number] Authorizing Provider: Vandana Tejada MD Collected: 08/31/2020 06:37 PM Ordering Location: [address] Received: 09/01/2020 08:13 AM Service Pathologist: Thien Radford MD Specimen: Groin, Left, left iliopsoas mass biopsy ADDENDUM (test code = 3381) d2iauABdPBHtcRM0HbKyXBVzg8mui6UrvIIcdSC qQBamwISkhwCoqw28wDK4jM73QW0vRKYrTmO0TE LnswU4Ihq7QLGrOIDziQZmO178h3dmw2ahbrLsv LV8lCbsELCuLIGvLUpwBIVyKzMzVZ8cqR9rdMqa cB4uvFAvxIHrdSTohDLjwGGfXBKdciOibj6lCXZ tvhTnzS2qtbFSRBKvOQ0sajW8qfZ8EYZ4xWBxac YnfTulj4RtAkTvJJdgrcP3ddGrZQJtr6WdtCp2O FLwn5RoF9AzBI7eEXpsxYIxahSurvZgAAZhgdCm Pa8hCXpwmdN7sH5wBZZtCCYqGSJdb26gnotcKB1 DTMHlrT2jtFnkmZKlD4ixEHXmxPoaAXmLAKZwVZ JUAPC0EVLshoYiN1IEVWLlWSOuj1ibRuCfSNSdv nFkwZ5mOMpzHuwjT6duZkdkfQUjuuXyoDNunFUn GIYfpwjxeawuYwRdbTOtZZV1dcL3FUMsSZqxMTI vpIEhJZApILMuSX0qwBLnfUgbPEGtvCgeYTJvTA NpomAlAIQcs42abNOouUHqtRo4e4lmMXLhHTH9c eZoJFPeSMSnWOOdFXHlgQWtSI1lHJJmWFXungJb xSKzOwNAuVRfFGRcnfQjuq0nvfBoHFatcIOefqD eoPDtrUQrfHi0z5HeNfSfyXr6ssIxJCIsOTFuhx ZzFWexq4V7NYBgoVlejhBnrGAtJF2gEESdONTlL bKwXTVrf9Omhl1vrDQdMTEypbYCqoQgNTnrBXU3 zUQsinU6cCGfEQ4bRWVhCSBaFNObf28joLNfeN9 gEQQyof0wpbZ9UWYug0tvkdOaDVlfNQInek8lMR TbfJ9bEfUmoVQuiYlpAP64TdhxMSIyfHKdWYRcn QOzI0PeVWQ6mHquXTZkDTXjWmZaeyDbNNKgLA3V XPUfIXCkt73dDNZjqhEfh00kwNz4UDZxc29uSSU gIWRwSWFmRTKjNXJubP5fyTU1tKxdNCWrfNczls 5nuEJyJJHbegVFgbMhOGQedVDujS1hjmUeqCEdH FRuCAp4VYWlBpGVeR6vRCDvEK9fX6hyMLxueupe YXJ9 DIAGNOSIS (test code = 3220) h4clgOAaBFGvk9zuYYBqjBLqLiEkKgElCvBbAk p cdWMxIHtccnRmMVxlcGljOTIwMlxhbnNpXHNwbH MkE5IfqjgyDCguTP6vKG4hzDmppFRayFZkAPPwN dBao6ydy686oDOix9pgFLWZwkbfwLp3cFwaM43e m7I8SnbvS73uyFXiSNvclQPbxfifpjGxQWQUHpW sJOPHSLGPUCmHOI3RJ36SVwYQYGOHXTRWUP6CA0 k7HFMijaMKVUdZFHsBBYZRZPztRhNCOWrAR52xB YPmeuIJVK6BUWVAGdHABoFLAYRGYKaROrEPTS6O LT8LVRcGOMGCR4UDFA4SYOqXUK7PMrhyCWXaTPN JGA3UJC5lDqNVH2LQDWIOTBUQEUmFXa3sJBDiqn 14KGQ3UqNtr1Q1LRA3SSUeQCPip9kiPLAgiFAqG pFnBrLjBgPeBdsttUSsMEFgLnDew0xdd862dRBb n4qoMLFqSfB7eUKhBRInzKFdH819FBWrRIaqt3r pe1NqTPWsoJHyt0M7DTCUferumMe7rOwgR10xv6 Q0TnmcV9iyGKIzGQFtE6LdEV8wVIYwIdk9XJP0I XU0ZUPhYIWgA5MxOS7yFGMswOVoPUw2z7cpjItu VRSlHVC0i3xwPGwydsSbQS9jkc9wkSl5n3uxzxA wURYrKEXavPFZVZLkD0EfmCcuMj9qpOf4oVutAk mtOSC4Swu9SC2zpc57mkc7wZqvVWVwbszoYiF9C JawALZitzljZTl3OJizVHYwlZI5WUDjtRXrQ1Mz ZRQgYB6fhgb6ORW3ICatTHAjUyU8EZMqnIIiSPQ piUyvBCrgj373TOD2JkUmAQ0rD4Zpg6B6aQ1beS PnKFGcrAAgZeGyEXNqgj6lqUBrBOlrh9QmBUD3i pY0mWPhfVDrBFHjTsJ4VGogKN6gec54HOUxZGF9 ke8nmQRztTzuvfScgPXcRZqyV6WxQUJpk687ISP eQ2HfECPsc6G6xhVoGlGsJWAapRM5egW4YMOwHM 4msqxrl6zqVQakAVqfTPBmblX2elW1ZNNyxUPrJ 8UglZ3xYHTdOE4wwnaia9wvBOG1OSvbIEUoDKN5 MzChCXBni3Fspho0PjFcu0PfaTBsYUngD18tu55 0IKOoqyFcH3qdkNYdfhffdLRvoefbEToqdwW0JJ QkGBvdxlepHFObHWrwU4btJxRcYCVcmJndSOhkh 0YzHRRzPCHlNbBzdZYmDHTxOaq9EBDgzJDhCKDz IjGxV9xvhxlaHzSLLTAlq0bgM0ysyEABiBGrF9A hNSqrsfMeZOqmMXswMWYkLVO7TS86ZSdwDKOgdf 19 CPT Code(s) (test code = 3357) z7hzzNMrJARlkQL2LjLcOURxg6xdm1ZnwVLd cGF tHVgjhWAjnkEctx97nAU0hQ17FN4vCZFcVfI7OS VinuT2Sdf6MNVyLYGzuWHqT326t9fbv6lmopNxt NV2qKmhLRMnUZTqNPskVSCfInJnOYveRYSqGJl2 HlTaNTE5GHN6WHw0TIJuzi6= CLINICAL HISTORY (test code = 3356) t0fcrWQbCWBvwFT6IoPkVJAjj7mhh4B sdHBncGF zGHbbeRRzktZbif23bHN1mB43VB4aUKGdUhK1NO XtdhF4Lkb2DGXfHGWiqSYgO485l7fbp3ucznXld IP9iLuwIZRdWDPfYXucKDScCtIkASApfPEkre1j uiDgwTJ6Y0pubI0xm44stmBcSZPjGBQ1PgFrtDZ 6TmGxvTQnUKBjKSciPDU1 SPECIMEN SOURCE (test code = 3377) e5duqUCdYJGhzFN9CpUhXEXjw0zbn5Ng dHBncGF xHOatnOGopeOelj72cBN4fM26GO4sSICjHgO7LH RrbmM3Stf3KGCfSHCobQKsT163x8awo2ddefIxd AA2oZpgEDFyKGBjQCelWXVaPiBxJXIdsTWwxw3i hc5khGudiTDwKXLldOMzxV== GROSS DESCRIPTION (test code = 3366) g4woxOBvIKTptPFpObQwGNDhOTGws8 lcZGVmbGF sJcUmLrXdZgWiOuqobPPjFNIjZvDjs0bui427gQ Oop1fkOWPBeugsgXs8r2vgNOMpJtA4vGLbZQgwQ 7osiqLevYRtZKWvADa5oW81GFQydX6zdGMqBVsg rySbBrG6EBsyVPHdKaL5VDMtuHCqUAMwE5aaELV lRNxgGAIbNAoswPTeFAM2vEmwp1H0rTCvzKYlfE elItFgLcDlUTAVx2GiACl6oSyhO0ZaKCUbEaO0s BXjBGJxBOhyCDKrMEZmgtM3zV65HTqwzeL8dGZe m6Gvq36gc675yK0vrVQfXQV9FOIbROQhwLNfVOK bCAH2SJQouGCaJ7c9KyQeiWDfA2Q1MjSkcBMgM0 V9UkJqmIYiT9K0NqUcgGGsDGWftVOyLq2vrWIgo PFmte7ith50QMN6l0JboJduQSQ1XGV9DjUwRc9y fDNsOQFbBBEmlXBfBMEaUI6reWIhOQPbdB9wgvp xIIEnWaGfhjwnFMDdpToieaNdCq9rfFbxUML2PS zpW1uxfB4dWoJ1HMwlH1lbtQ5yYDh2MWkqtON5I YVlbI8cDP2ijifow9osErOrHC5dwiezt0hpNeTy LF7vleg4t3vaUvIyNP8qxsgqi5qnRuGdXJapLWX dqdhcUCXpu3IvbbcoTCTtp9KaJ2DrzRloA35jjG amW51dGRCwcXvebZ4dsVvhwZ8wPcUlTvGjOVyxY XJkXHBsYWluXGYxXGZzMjBcbGFuZzEwMzNcaGlj yRpgKZmgKkNlARMtWKoqG4hyHdIoIoAuEIJREpS XIRHuwUSaLUKcjeAfs2QxFJvcldZxVAAwvJDtJW tubVrskJagTIMksHvtcaLfT9M1rzAgMU7fEXDnQ FSgY6EbDEFaM77pQBNekR6nAKPiUN6kCRLuze8d kerhsNQbdWAgQQ7wDXYivgKri1RdVB4zFA38nUC xoWdaORlpGUgzg7vyeYFtf40xvPP5pDCldBNyE8 1lVBRygvIpH4hvHoEdQfObHB6oTCQmHBgeWVjty yn5aWIrvQVteWT8VVDmgS4ryY86tdHtcpYJNS3m hTilECamnE2iBXLzNPlgIEQsO0InvA4zKO4NQkq kTKVjAYGWH8ZyK11zaHHrrW== MICROSCOPIC DESCRIPTION (test code = e6dytIJiZLWikYY6HdEnNKHxi4eid0 BsdHBncGF 3371) xFNakdEDgjdAfuc19pHM2oA17MW4bESCqVcX6JM RcxiI5Thw5RPDcPDKtaBDtO583n3pfs1mnpdKyj BS7kMzyCSCvEDMgLGcfHSBzCjMoCMLTWw9KGIBY XHBhcn0= SPECIAL STUDIES (test code = 3376) m6tfgEKrJBVufLK1PbBrIWLej2ems4Ab dHBncGF tUFiklVDfjhJgqn84dPE0sG10DY2bKKLxZdT3TH KdrmX2Pqy3LMScASFpcIToK606PXMvTGTgrGymx aa1fD06JORpdT0atRDxCYa2UUDcoaUmfClazW2t PaDuIvYmYqGAqGEltZ02CGKbmhX4UVFfn85tg7U biCfclrJkEKIoACozT8e9KKRhBYKnXMO0d4Rpn7 SfkE2cvX5nxCtkzG0nqUPkyXF3yglon7Zof2QvS 3mljLRdiUSpedYoDMSnmnMUKC2VSgXZCQ2fV7PH TTABWjjjIwDnYMhhRPKXJUfKALDIIIV7VIMUCPE gETCNJEleIWUaI83rzGHkeUOOlQksJBDeYWhtqE mvRKY8PAJYip8uu2AsLCEwvt60teEry0OenMd8Y TFzv324cd2bbrY3JAJyAJD2VPe1TYPhENKqoE3c KgO4tEOtNNMrVIX8MUP5NNEtp9B2AA5gSOQtGBH xVWRpilBbi6bux7fpBWLdTDG8vmWpvO5hD2GmNM Pvz9NnzXybIIFlzPhnhjGtFUBenWCcMRFuxB22D SCteYWsfDKmBYBsROK9AExfdC4tUrYGoqUfdy1s lPNni8VqaQh6EKCkusXbrgXyFXAppgOqV41hrQL xsKGnr5rfjzKxehHvaQBojHGqVHHrWFT3HLf3LI PjPAsgURYmDFpjUBZwBS3fdL0dlCbaoN8xrEPjg IR4jtpocJUpdQ5yQ6SmVNEvx3Yxxctoe0TbPLJy uqUyoj8bOJUsxXIFWXmnp3SbC8ZlAHx0b6OatLh nYNwqASs5VsSeXWPvhDHoxFSLPX39EXLiBXLwgV bfzM2woOUQNBMfkrF9v4G3SQsyKAYiHUs3FZjxt kLuBTNelP2sEJXwSD5fDJf8bpXkLFQvi5PeVU4p REFipQTdYOY7KCYdw9QkG7Tku9WmYUXkSFFdom1 mydZoGwRLxKGhOHQejz57XFKpRH6bT8abXELjBG NcilNbpYDzx4RsWSShwTX6jHUjEM7VLgOOl39lW NPuWMPWpuYaQXWruWqfpCE1iaM9mP6nClRYjUYw SgPSAImxheWxMXPawp0xovHwYSLkGZIbw0VkvQE ecYKmxyKuR5Dry0EmCUToxb10KUpglWNiks72BJ 0dQ9Deb7QdjK0nFPzpUYOfh1CvsNJemQXlHJVho 7TkH5hnwyojMTuyjEFvsD5yNWFgGMx4HZWgq6Cs LAOfl5ToGwFsrmAwTOMgFUAiYLPxxW26YTM1nIp ooQiugqUtTD2eLLXbriOzSZOkBLHdnR7tGYlxwq EsGXEmalE0j2G0ZPxvDOGjyqVwLqpiHQQ3kgOfx xF3xHXcM3dikukhQUfiGHNha8LdeN4saHTNvULh r3LvvLUtwPSQgADrTE9zkcUrNA6zPDN0JHfjMQH YGVDhPBgdGQYtNLG1GScgBwaeARX2naUyAEJss9 BiPNdaI1enG38waRqceSz8gBTreVvwvSRauEShH QTrnyB6j2Y6XLGyv8OksmwmHTNudc7= Gross assessment was performed at (test [facility] enter, code = 2777) Department of Pathology, [address] [place] [address], Technical component was performed at [facility] er, (test code = 2778) Department of Pathology, [address] [place] [address], Professional component was performed at [facility] enter, (test code = 2779) Department of Pathology, [address] [place] [address], [facility] [id number] 10:56:00Surgical Pathology Report Case: [id number] Authorizing Provider: Vandana Tejada MD Collected: 08/31/2020 06:37 PM Ordering Location: [address] Received: 09/01/2020 08:13 AM Service Pathologist: [...] REPORT TO FOLLOW. Signing Pathologist Direct PhoneLine: [phone] signed by Thien Radford MD on 09/01/2020 at 3:59 [id number] groin cyst/iliopsoas mass, 6.3 x 6.1 x [...] evaluated Immunohistochemistry technical testing was performed at [facility], Pathology Laboratory where it was developed and [...] to perform high complexity clinical la boratory testing.[facility], Department of Pathology, [address] [place] [id number], [facility], Department of Pathology, [address] [place] [id number], [facility], Department of Pathology, [address] [place] [phone], LZ, CHEST, WITH CONTRAST 2020-09-05 14:16:00Unlisted Reason for [...] Smithort Verified Date/Time: 09/05/2020 14:16:01 Reading Location: [facility] C013Y CT Body Reading Room Electronically signed by: BRIE SMITH M.D. on09/05/2020 02:16 PMCT chest with IV [id number] 14:16:00Interface, External Ris In - 09/05/2020 2:18 [...] Smith Verified Date/Time: 09/05/2020 14:16:01 Reading Location: [facility] C013Y CT Body Reading Room [facility] Echo W/Doppler(CW/PW/Color) 2020-09-05 09:47:35 Test Item Value Reference Range Interpretation Comments Ejection Fraction Est EF is 55-60% (test code = 2574) PXN (test code = Interface, External Ris In PXN) - 09/05/2020 9:47 AM CDTTransthoracic Echocardiography Report (TTE) Demographics Patient Name DEL VALLE, DANIEL Date of Study 09/05/2020 NEELAM Gender Female Visit Number [id number] Race Unknown Room Number 2146 Number Date of 1960 Referring Physician Vandana Tejada MD Age 60 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 The reference range was not u sed to interpret th is result as normal/abnormal . Albumin (test code = 3.6 g/dL 3.5-5 28384-2) Alkaline Phosphatase 106 U/L 40-150 (test code = 6768-6) Total Bilirubin (test 0.2 mg/dL 0.2-1.2 code = 1974-2) Sodium (test code = 139 meq/L 866-750 3307-2) Potassium (test code 4.7 meq/L 3.5-5.1 = 2823-3) Chloride (test code = 104 meq/L 98-107 5-0) CO2 (test code = 25 meq/L -2027-9) BUN (test code = 10 mg/dL - 3094-0) Creatinine (test code 0.70 mg/dL 0.57-1.25 = 2160-0) Glucose (test code = 159 mg/dL 70-105 H 2345-7) Calcium (test code = 8.8 mg/dL 8.4-10.2 67282-1) AST (test code = 9 U/L 5-34 1920-8) ALT (test code = 13 U/L 6-55 1742-6) EGFR (test code = 103 mL/min/1.73 [place] [address]-5) NOT ACCURATE CREATININE CLEARANCE IN PREDICTING GLOMERULAR FILTRATION RATE . ESTIMATED GFR I S NOT APPLICABLE FOR DIALYSIS PATIEN TS. JESSICA (test code = JESSICA) Manager Pricing ID - BALA M Lab Interpretation Abnormal (test code = 45667-9) [facility] CenterCOMPREHENSIVE METABOLIC [id number] 07:34:00 Test Item Value Reference Range Interpretation [...] S NOT APPLICABLE FOR DIALYSIS PATIEN TS. Manager Pricing ID Maricruz MCKENNA MSARS-CoV2/RT-PCR (Asymptomatic ONLY)2020-09-04 12:52:00 Test Item Value Reference Range Interpretation Comments SARS-COV2/RT-PCR Negative Not Detected, (test code = Negative, See 98822-8) external report for linked test SARS-COV-2 [facility] PERFORMING LAB (test code = 30415-3) JESSICA (test code = Negative result for [...] of the Act. Fact Sheet for Healthcare Providers:https://www.Exara idel.mphoria/sites/default/f nito/product/documents/F act_Sheet_HC_Providers_L tdx_JUST-QxU-9.pdf Fact Sheet for Healthcare Patients:https://www.ashly del.com/sites/default/fi les/product/documents/Fa ct_Sheet_Patients_Lyra_S ARS-CoV-2.pdf Performing Laboratory:[facility] [address] [facility] ([facility])2020-09-04 12:52:00 Test Item Value Reference Range Interpretation Comments SARS-COV2/RT-PCR (test Negative Not Detected, Negative, code = 1918888) See external report for linked test SARS-COV-2 PERFORMING LAB [facility] (test code = 9848126) Negative result for this test determines that [...] 564(g) of the Act.Fact Sheet for Healthcare Providers:https://www.Exaraidel.com/sites/default/files/product/documents/Fact_Shee k_KQ_Uavrsnvni_Gmpf_VSGC-ElP-4.pdfFact Sheet for Healthcare Patients:https://www.[employer]com/sites/default/files/product/ documents/Pymz_Xwwwb_Mennfvfg_Ybsc_JKIS-CeD-0.pdfPerforming Laboratory:[place] [id number], [place] [address]AOA with platelet count + automated [id number] 06:38:00 Test Item Value Reference Range Interpretation Comments WBC (test code = 6690-2) 11.4 See_Comment H [A utomated message] The system [employer] buy tea generated this result transmitted ref erence range: 3.5 - 10 .5 K/L. The refe rence range was not u sed to interpret this result as normal/abnor mal. RBC (test code = 789-8) 4.35 See_Comment [Au tomated message] The system [employer] generated this result transmitted ref erence range: 3.93 - 5 .22 M/L. The refe rence range was not u sed to interpret this result as normal/abnor mal. MCHC (test code = 786-4) 28.0 See_Comment L [A utomated message] The system [employer] generated this result transmitted ref erence range: [...] See_Comment [Aut omated message] 777-3) The system [employer] generated this result transmitted ref erence range: 150 - 45 0 K/CU MM. The referen ce range was not u sed to interpret this result as normal/abnor mal. MPV (test code = 9.0 fL 9.4-12.3 L 01015-4) nRBC (test code = 413) 0 See_Comment [Aut omated message] The system [employer] generated this result transmitted ref erence range: [...] H [Aut omated message] 670) The system [employer] generated this result transmitted ref erence range: 1.56 - 6 .13 K/L. The refe rence range was not u sed to interpret this result as normal/abnor mal. # Lymphs (test code = 2.06 See_Comment [Auto mated message] 414) The system [employer] generated this result transmitted ref erence range: 1.18 - 3 .74 K/L. The refe rence range was not u sed to interpret this result as normal/abnor mal. # Monos (test code = 0.95 See_Comment H [Autom ated message] 415) The system [employer] generated this result transmitted ref erence range: 0.24 - 0 .36 K/L. The refe rence range was not u sed to interpret this result as normal/abnor mal. # Eos (test code = 416) 0.46 See_Comment H [Au tomated message] The system [employer] generated this result transmitted ref erence range: 0.04 - 0 .36 K/L. The refe rence range was not u sed to interpret this result as normal/abnor mal. # Baso (test code = 417) 0.03 See_Comment [A utomated message] The system [employer] generated this result transmitted ref erence range: 0.01 - 0 .08 K/L. The refe rence range was not u sed to interpret this result as normal/abnor mal. Immature 1 % 0-1 Granulocytes-Relative (test code = 2801) Lab Interpretation (test Abnormal code = 61931-4) [facility] W/PLT COUNT & AUTO [id number] 06:38:00 Test Item Value Reference Range Interpretation [...] PERCENT (BEAKER) (test code = 2801) Prothrombin time/[id number] 05:07:00 Test Item Value Reference Interpretation Comments [...] valves. Lab Interpretation Abnormal (test code = 36042-2) [facility] CenterPROTHROMBIN TIME/[id number] 05:07:00 Test Item Value Reference Range Interpretation Comments PROTIME (BEAKER) 19.2 seconds 11.9-14.2 H (test code = 759) INR (BEAKER) (test 1.64 See_Comment [Automat ed message] code = 370) The system [employer] generated this result transmitted ref erence range: [...] See_Comment H [A utomated message] The system [employer] generated this result transmitted ref erence range: 3.5 - 10 .5 K/L. The refe rence range was not u sed to interpret this result as normal/abnor mal. RBC (test code = 789-8) 4.36 See_Comment [Au tomated message] The system [employer] generated this result transmitted ref erence range: 3.93 - 5 .22 M/L. The refe rence range was not u sed to interpret this result as normal/abnor mal. MCHC (test code = 786-4) 28.6 See_Comment L [A utomated message] The system [employer] generated this result transmitted ref erence range: [...] See_Comment [Aut omated message] 777-3) The system [employer] generated this result transmitted ref erence range: 150 - 45 0 K/CU MM. The referen ce range was not u sed to interpret this result as normal/abnor mal. MPV (test code = 8.9 fL 9.4-12.3 L 82178-4) nRBC (test code = 413) 0 See_Comment [Aut omated message] The system [employer] generated this result transmitted ref erence range: 0 - 0 /1 00 WBC. The refere nce range was not u sed to interpret this result as normal/abnor mal. Lab Interpretation (test Abnormal code = 01916-1) [facility] (HEMOGRAM ONLY)2020-09-02 04:59:00 Test Item Value Reference [...] (BEAKER) (test code = 413) U/S, CORE [id number] 08:58:00Reason for exam:->BIOPSY LEFT ILIOPSOAS MASS US VS [facility] 1960 Sex: FFINAL REPORT Procedure: Ultrasound-Guided left iliopsoas/inguinal mass core biopsy Pre/post-procedure diagnosis: Left iliopsoas/inguinal mass Director Of Enterprise Applications: Abdirahman Chopra MD Assistants: none Sedation: Moderate [...] MDRmaude Verified Date/Time: 09/01/2020 08:58:59 Reading Location: [facility] Diagnostic Imaging Reading Room [place] [address] 1.310.12 US Core [id number] 08:58:00Interface, External Ris In - 09/01/2020 9:01 AM CDTFINAL REPORT Procedure: Ultrasound-Guided left iliopsoas/inguinal mass core biopsy Pre/post-procedure diagnosis: Left iliopsoas /inguinal mass Director Of Enterprise Applications: Abdirahman Chopra MD Assistants: none Sedation: Moderate [...] MDReport Verified Date/Time: 09/01/2020 08:58:59 Reading Location: [facility] Diagnostic Imaging Reading Room - [facility] 1.310.12 [facility] (HEMOGRAM ONLY)2020-09-01 05:07:00 Test Item Value Reference [...] 0-0 (BEAKER) (test code = 413) PROTHROMBIN TIME/[id number] 04:44:00 Test Item Value Reference Range Interpretation Comments PROTIME (BEAKER) 19.1 seconds 11.9-14.2 H (test code = 759) INR (BEAKER) (test 1.63 See_Comment [Automat ed message] code = 370) The system [employer] generated this result transmitted ref erence range: <=5.90. The reference range was not used to int erpret this result as normal/abnormal . RECOMMENDED COUMADIN/WARFARIN INR THERAPY RANGESSTANDARD DOSE: 2.0 - 3.0 Includes: PROPHYLAXIS forvenous thrombosis, systemic embolization; TREATMENT for venous thrombosis and/or pulmonary embolus.HIGH RISK: Target INR is 2.5-3.5 for patients with mechanical heart valves.Vitamin B12 and [id number] 06:16:00 Test Item Value Reference Range Interpretation Comments Vitamin B12 (test 327 pg/mL 213-816 code = 2132-9) Folate (test code = 3.70 ng/mL See_Comment L [Automa yumiko 2284-8) message] The system which generated this result transmit yumiko reference range : >=7.00. The reference range was not used to interpret this result as normal/abnormal . JESSICA (test code = JESSICA) Manager Pricing ID - BALA M Lab Interpretation Abnormal (test code = 79844-0) [facility] CenterVITAMIN B12 AND [id number] 06:16:00 Test Item Value Reference Range Interpretation Comments VITAMIN B12 (BEAKER) 327 pg/mL 213-816 (test code = 774) FOLATE (BEAKER) 3.70 ng/mL See_Comment L [Automated message] (test code = 362) The system which generated this result transmitted ref erence range: >=7.00. The reference range was not used to interpr et this result as normal/abnormal . Manager Pricing ID - BALA MPROTHROMBIN TIME/[id number] 05:36:00 Test Item Value Reference Range Interpretation Comments PROTIME (BEAKER) 21.8 seconds 11.9-14.2 H (test code = 759) INR (BEAKER) (test 1.92 See_Comment [Automat ed message] code = 370) The system [employer] generated this result transmitted ref erence range: [...] 0-0 (BEAKER) (test code = 413) CT, [id number] 11:32:00Unlisted Reason for Exam - Click Yes [...] size and patent. Right lower extremity: The CARBON ACCOUNTANT, DFA, SFA, and popliteal arteries are patent. Trifurcation vessels are patent. Left lower extremity: The CARBON ACCOUNTANT, DFA, SFA, and popliteal arteries are patent. [...] Bulleport Verified Date/Time: 08/30/2020 11:32:07 Reading Location: [facility] B1 P048 Angio Body Reading Room CT, CTA AAA, W/ BELLA.EXT.RUNOFF 2020-08-30 11:32:00LLE DVT, assess prior pelvic mass, please assess venous phaseAnesthesia:->None [facility] 1960 Sex: FFINAL [...] size and patent. Right lower extremity: The CARBON ACCOUNTANT, DFA, SFA, and popliteal arteries are patent. Trifurcation vessels are patent. Left lower extremity: The CARBON ACCOUNTANT, DFA, SFA, and popliteal arteries are patent. [...] MDReport Verified Date/Time: 08/30/2020 11:32:07 Reading Location: [place] [address] Angio Body Reading Room CT abdomen/pelvis with [...] size and patent. Right lower extremity: The CARBON ACCOUNTANT, DFA, SFA, and popliteal arteries are patent. Trifurcation vessels are patent. Left lower extremity: The CARBON ACCOUNTANT, DFA, SFA, and popliteal arteries are patent. [...] MDReport Verified Date/Time: 08/30/2020 11:32:07 Reading Location: [facility] B1 P048 Angio Body Reading Room [facility] Center[facility] and [id number] 11:32:00Interface, External Ris In - 08/30/2020 11:34 [...] size and patent. Right lower extremity: The CARBON ACCOUNTANT, DFA, SFA, and popliteal arteries are patent. Trifurcation vessels are patent. Left lower extremity: The CARBON ACCOUNTANT, DFA, SFA, and popliteal arteries are patent. [...] Bull Verified Date/Time: 08/30/2020 11:32:07 Reading Location: [facility] B1 P048 Angio Body Reading Room [facility] CenterArterial doppler leg, [id number] 09:31:54Ejection [facility] ECHO HEARTLAB MKCKESSON CPACS Left Impression1. [...] + + + + + + !Mid EMISSIONS TECHNICIAN ! !59.4 ! ! ! + + +-- + + + !Dist EMISSIONS TECHNICIAN ! !61.6 ! ! ! + + [...] Study 08/29/2020 NEELAM Age 60 Visit Number [id number] Gender Female Accession Number [id number] Date of 1960 Referring Tricia Hernandez Room Number 2546 Physician Richard Atmospheric Scientist Stacy Benitez MD RVT Physician ProcedureType of [...] + + + + + + !Mid EMISSIONS TECHNICIAN ! !59.4 ! ! ! + + + + + + !Dist EMISSIONS TECHNICIAN ! !61.6 ! ! ! + + + ---------+ + + !Prox JANETTE ! !64.3 ! ! ! + + + +---- + + !Mid JANETTE ! !80.3 ! ! ! + + + + + + !Dist JANETTE ! !67.1 ! ! ! + + + + + +[facility] CenterB[facility] and [id number] 06:17:00 Test Item Value Reference Range Interpretation [...] mL/min/1.73 [place] [address]-6) NOT ACCURATE CREATININE CLEARANCE IN PREDICTING GLOMERULAR FILTRATION RATE . ESTIMATED GFR I S NOT APPLICABLE FOR DIALYSIS PATIEN TS. JESSICA (test code = Manager Pricing ID - BS JESSICA) [facility] CenterBUN AND CREATININE W/[id number] 06:17:00 Test Item Value Reference Range Interpretation Comments BLOOD UREA NITROGEN 13 mg/dL - (BEAKER) (test code = 354) CREATININE (BEAKER) 0.72 mg/dL 0.57-1.25 (test code = 358) BUN/CREAT RATIO 18 For a normal (BEAKER) (test code individu al on a = 7935020711) normal diet, t he reference inter jewel for the mass ra nabil ranges between 12:1 and 20:1 (BUN i n mg/dL/creatinin e in mg/dL) EGFR (BEAKER) (test 100 mL/min/1.73 ESTIM ATED GFR IS code = 1092) sq m NOT ACCURATE CREATININE CLEARANCE IN PREDICTING GLOMERULAR FILTRATION RATE . ESTIMATED GFR I S NOT APPLICABLE FOR DIALYSIS PATIEN TS. Manager Pricing ID - BSCBC (HEMOGRAM ONLY)2020-08-30 05:50:00 Test [...] 0-0 (BEAKER) (test code = 413) PROTHROMBIN TIME/[id number] 05:48:00 Test Item Value Reference Range Interpretation Comments PROTIME (BEAKER) 21.5 seconds 11.9-14.2 H (test code = 759) INR (BEAKER) (test 1.89 See_Comment [Automat ed message] code = 370) The system [employer] tea generated this result transmitted ref erence range: [...] 1.0-2.0 units/mL once daily enoxaparin Ref: CHEST 2012;141:[id number] Lab Interpretation (test Normal code = 13392-4) [facility] CenterHEPARIN ASSAY - LOW MOLECULAR [id number] 14:07:00 Test Item Value Reference Range Interpretation Comments LOVENOX-ANTI 10A (BEAKER) (test 0.85 u/ml 0.60-2.00 code = 1605) Anti-Factor 10-A Level (Heparin Assay for Low Molecular Weight Heparin)Monitoring Guidelines: Blood samples should be obtained 4 hours post subcutaneous injection (time of Peak level) Therapeutic Peak Levels: 0.6-1.0 units/mL twice daily enoxaparin 1.0-2.0 units/mL once daily enoxaparinRef: CHEST 2012;141:[id number] (HEMOGRAM ONLY)2020-08-29 13:22:00 Test Item Value Reference [...] 0-0 (BEAKER) (test code = 413) PROTHROMBIN TIME/[id number] 05:41:00 Test Item Value Reference Range Interpretation Comments PROTIME (BEAKER) 17.4 seconds 11.9-14.2 H (test code = 759) INR (BEAKER) (test 1.45 See_Comment [Automat ed message] code = 370) The system [employer] generated this result transmitted ref erence range: <=5.90. The reference range was not used to int erpret this result as normal/abnormal . RECOMMENDED COUMADIN/WARFARIN INR THERAPY RANGESSTANDARD DOSE: 2.0 - 3.0 Includes: PROPHYLAXIS forvenous thrombosis, systemic embolization; TREATMENT for venous thrombosis and/or pulmonary embolus.HIGH RISK: Target INR is 2.5-3.5 for patients with mechanical heart valves.BUN AND CREATININE W/[id number] 17:04:00 Test Item Value Reference Range Interpretation Comments BLOOD UREA NITROGEN 9 mg/dL 7-21 (HARDIK) (test code = 354) CREATININE (HARDIK) 0.79 mg/dL 0.57-1.25 (test code = 358) BUN/CREAT RATIO 11 For a normal (HARDIK) (test code individu al on a = 1152559635) normal diet, t he reference inter jewel for the mass ra nabil ranges between 12:1 and 20:1 (BUN i n mg/dL/creatinin e in mg/dL) EGFR (HARDIK) (test 90 mL/min/1.73 ESTIMA YUMIKO GFR IS code = 1092) sq m NOT ACCURATE CREATININE CLEARANCE IN PREDICTING GLOMERULAR FILTRATION RATE . ESTIMATED GFR I S NOT APPLICABLE FOR DIALYSIS PATIEN TS. Manager Pricing ID - DBVenous doppler leg, [id number] 15:52:54Ejection FractionSLEH ECHO HEARTLAB MKCKESSON CPA Left [...] Study 08/28/2020 NEELAM Age 60 Visit Number [id number] Gender Female Accession Number [id number] Date of 1960 Referring Count Includes [facility] Room Number 2546 Physician Richard Atmospheric Scientist Jarad Mayberry Interpreting Vivek Benitez MD RVT [...] in cm/s ; Diameters are measured in [facility] SARS-COV2/RT-PCR ([facility])2020-08-28 12:32:00 Test Item Value Reference Range Interpretation Comments SARS-COV2/RT-PCR (test Negative Not Detected, Negative, code = 9133349) See external report for linked test SARS-COV-2 PERFORMING LAB [facility] (test code = 3050869) Negative result for this test determines that [...] 564(g) of the Act.Fact Sheet for Healthcare Providers:https://www.[employer]mphoria/sites/default/files/product/documents/Fact_Shee z_SY_Ltkthogjo_Fcil_RDNW-BnR-1.pdfFact Sheet for Healthcare Patients:https://www.[employer]mphoria/sites/default/files/product/ documents/Xnqo_Bwdrb_Evlbmufh_Swwy_AXMN-DhR-4.pdfPerforming Laboratory:[facility], [place] [address]TMZAQMIWMGZ TIME/INR 2020-08-28 05:15:00 Test Item Value Reference Range Interpretation Comments PROTIME (MEEAKER) 16.1 seconds 11.9-14.2 H (test code = 759) INR (BEAKER) (test 1.31 See_Comment [Automat ed message] code = 370) The system [employer] generated this result transmitted ref erence range: [...] 0-0 (BEAKER) (test code = 413) PROTHROMBIN TIME/[id number] 16:24:00 Test Item Value Reference Range Interpretation Comments PROTIME (BEAKER) 14.7 seconds 11.9-14.2 H (test code = 759) INR (BEAKER) (test 1.20 See_Comment [Automat ed message] code = 370) The system [employer] generated this result transmitted ref erence range: [...] 0-0 (BEAKER) (test code = 413) PROTHROMBIN TIME/[id number] 14:53:00 Test Item Value Reference Range Interpretation Comments PROTIME (BEAKER) 10.1 seconds 9.8-12.0 (test code = 759) INR (BEAKER) (test 0.94 See_Comment [Automat ed message] code = 370) The system [employer] generated this result transmitted ref erence range: [...] 0-0 (BEAKER) (test code = 413) PROTHROMBIN TIME/[id number] 19:23:00 Test Item Value Reference Range Interpretation Comments PROTIME (BEAKER) 15.0 seconds 11.9-14.2 H (test code = 759) INR (BEAKER) (test 1.20 See_Comment [Automat ed message] code = 370) The system [employer] generated this result transmitted ref erence range: [...] 0-1 PERCENT (BEAKER) (test code = 2801) [id number] 07:38:00 Test Item Value Reference Range Interpretation Comments PTT (test code = 62.8 See_Comment H [Automated message] 89058-2) The system [employer] generated this result transmitted ref erence range: 22.5 - 3 6.0 seconds. The reference range was not used to int erpret this result as normal/abnormal . Lab Interpretation (test Abnormal code = 86939-2) [facility] CenterAPTT2021-06-11 07:38:00 Test Item Value Reference [...] WBC 0-0 (BEAKER) (test code = 413) [id number] 23:09:00 Test Item Value Reference Range Interpretation Comments PARTIAL THROMBOPLASTIN TIME 48.3 seconds 22.5-36.0 H (BEAKER) (test code = 760) [id number] 12:59:00 Test Item Value Reference Range Interpretation Comments PARTIAL THROMBOPLASTIN TIME 33.5 seconds 22.5-36.0 (BEAKER) (test code = 760) Basic Metabolic [id number] 06:56:00 Test Item Value Reference Range Interpretation Comments Sodium (test code = 140 meq/L 956-810 4989-2) Potassium (test 4.4 meq/L 3.5-5.1 code = 2823-3) Chloride (test code 100 meq/L 98-107 = 2075-0) CO2 (test code = 27 meq/L 22-29 2027-11) BUN (test code = 13 mg/dL 7-21 3094-0) Creatinine (test 0.81 mg/dL 0.57-1.25 code = 2160-0) Glucose (test code 101 mg/dL 70-105 = 2345-7) Calcium (test code 9.7 mg/dL 8.4-10.2 = 74548-0) EGFR (test code = 87 mL/min/1.73 [place] [address]-5) NOT ACCURATE CREATININE CLEARANCE IN PREDICTING GLOMERULAR FILTRATION RATE . ESTIMATED GFR I S NOT APPLICABLE FOR DIALYSIS PATIEN TS. JESSICA (test code = Manager Pricing ID - JESSICA) BALA Hernandez [facility] METABOLIC [id number] 06:56:00 Test Item Value Reference Range Interpretation [...] S NOT APPLICABLE FOR DIALYSIS PATIEN TS. Manager Pricing ID - BALA MCBC (HEMOGRAM ONLY)2020-08-24 06:41:00 [...] WBC 0-0 (BEAKER) (test code = 413) [id number] 06:32:00 Test Item Value Reference Range Interpretation Comments PARTIAL THROMBOPLASTIN TIME 34.7 seconds 22.5-36.0 (BEAKER) (test code = 760) [id number] 22:03:00 Test Item Value Reference Range Interpretation Comments PARTIAL THROMBOPLASTIN TIME 36.0 seconds 22.5-36.0 (BEAKER) (test code = 760) [id number] 14:36:00 Test Item Value Reference Range Interpretation [...] (BEAKER) (test code = 413) BASIC METABOLIC [id number] 05:47:00 Test Item Value Reference Range Interpretation [...] S NOT APPLICABLE FOR DIALYSIS PATIEN TS. Manager Pricing ID - BAL [facility] (HEMOGRAM ONLY)2020-08-23 05:19:00 Test Item Value [...] = 413) U/S, EXTREMITY, LOWER, LEFT (NON-VASCULAR) [id number] 15:15:00Please obtain biopsy of inguinal mass. Pending [...] MDRcarylort Verified Date/Time: 08/22/2020 15:15:14 Reading Location: [facility] C0[facility] Consult Reading Room US extremity non-vascular limited [id number] 15:15:00 Interface, External Ris In - 08/22/2020 [...] MDRcarylort Verified Date/Time: 08/22/2020 15:15:14 Reading Location: [facility] C013 Consult Reading Room Electronically signed by: RICK GARCIA MDon 08/22/2020 03:15 [facility] [id number] 06:22:00 Test Item Value Reference Range Interpretation [...] S NOT APPLICABLE FOR DIALYSIS PATIEN TS. Manager Pricing ID - BALA MCBC (HEMOGRAM ONLY)2020-08-22 05:57:00 [...] (BEAKER) (test code = 413) COMPREHENSIVE METABOLIC [id number] 07:02:00 Test Item Value Reference Range Interpretation [...] S NOT APPLICABLE FOR DIALYSIS PATIEN TS. Manager Pricing ID - BALA MPROTHROMBIN TIME/[id number] 06:42:00 Test Item Value Reference Range Interpretation Comments PROTIME (BEAKER) 13.7 seconds 11.9-14.2 (test code = 759) INR (BEAKER) (test 1.08 See_Comment [Automat ed message] code = 370) The system [employer] generated this result transmitted ref erence range: [...] 413) RAD, SPINE, LUMBAR, 2 OR 3 [id number] 20:22:00Reason for exam:->low back pain, [facility] : 1960 Sex: [...] LEFT 2020-08-20 20:22:00Reason for exam:->knee pain, fall [facility] NEELAM : 1960 [...] 2-3 VIEWS, LEFT, TO INCL PELVIS WHEN [id number] 20:22:00Reason for exam:->hip pain, fall [facility] NEELAM : 1960 [...] Date/Time: 08/20/2020 20:22:11 XR hip 2 views [id number] 20:22:00Interface, External Ris In - 08/20/2020 8:24 [...] Prateek Fung MDReport Verified Date/Time: 08/20/2020 20:22:11 [facility]XR spine lumbar 2 or 3 [id number] 20:22:00Interface, External Ris In - 08/20/2020 8:24 [...] Prateek Fung MDReport Verified Date/Time: 08/20/2020 20:22:11 [facility] 2020-08-20 20:22:00Interface, External [...] Prateek Fung MDReport Verified Date/Time: 08/20/2020 20:22:11 [facility] ([facility]H)2020-08-20 15:47:00 Test Item Value Reference Range Interpretation Comments LDH (test code = 2532-0) 228 U/L 125-220 H JESSICA (test code = JESSICA) Manager Pricing ID - DB Lab Interpretation (test Abnormal code = 78865-1) [facility] 15:47:00 Test Item Value Reference Range Interpretation Comments Magnesium (test code = 2.2 mg/dL 1.6-2.6 13281-0) JESSICA (test code = JESSICA) Manager Pricing ID - DB Lab Interpretation (test Normal code = 55655-6) [facility] 15:47:00 Test Item Value Reference Range Interpretation Comments Phosphorus (test code = 3.1 mg/dL 2.3-4.7 2777-1) JESSICA (test code = JESSICA) Manager Pricing ID - DB Lab Interpretation (test Normal code = 00644-1) [facility] [id number] 15:47:00 Test Item Value Reference Range Interpretation Comments Uric Acid (test code = 5.1 mg/dL 2.6-7.2 3084-1) JESSICA (test code = JESSICA) Manager Pricing ID - DB Lab Interpretation (test Normal code = 19421-3) [facility] CenterCOMPREHENSIVE METABOLIC [id number] 15:47:00 Test Item Value Reference Range Interpretation [...] S NOT APPLICABLE FOR DIALYSIS PATIEN TS. Manager Pricing ID - [id number] 15:47:00 Test Item Value Reference Range Interpretation Comments MAGNESIUM (BEAKER) (test code = 2.2 mg/dL 1.6-2.6 627) Manager Pricing ID - [id number] 15:47:00 Test Item Value Reference Range Interpretation Comments PHOSPHORUS (BEAKER) (test code = 3.1 mg/dL 2.3-4.7 604) Manager Pricing ID - DBURIC [id number] 15:47:00 Test Item Value Reference Range Interpretation Comments URIC ACID (BEAKER) (test code = 5.1 mg/dL 2.6-7.2 773) Manager Pricing ID - DBLACTATE DEHYDROGENASE (LDH)2020-08-20 15:47:00 Test Item Value Reference Range Interpretation Comments LACTATE DEHYDROGENASE (BEAKER) (test 228 U/L 125-220 H code = 635) Manager Pricing ID - DBCBC W/PLT COUNT & AUTO [id number] 15:26:00 Test Item Value Reference Range Interpretation [...] (test code = 2801) AFB CULTURE + [id number] 17:40:00 Test Item Value Reference Range Interpretation Comments CULTURE (BEAKER) (test No acid-fast bacilli code = 1095) isolated in 42 days AFB SMEAR (BEAKER) No acid fast bacilli (test code = 994) seen AFB CULTURE + [id number] 16:47:00 Test Item Value Reference Range Interpretation Comments CULTURE (BEAKER) (test No acid-fast bacilli code = 1095) isolated in 42 days AFB SMEAR (BEAKER) No acid fast bacilli (test code = 994) seen FUNGUS CULTURE + [id number] 17:06:00 Test Item Value Reference Range Interpretation Comments CULTURE (BEAKER) (test No fungus isolated in code = 1095) 28 days FUNGUS SMEAR (BEAKER) No fungi seen (test code = 1406) FUNGUS CULTURE + [id number] 20:59:00 Test Item Value Reference Range Interpretation Comments CULTURE (BEAKER) (test No fungus isolated in code = 1095) 28 days FUNGUS SMEAR (BEAKER) No fungi seen (test code = 1406) POCT-GLUCOSE [id number] 17:00:00 Test Item Value Reference Range Interpretation Comments POC-GLUCOSE METER 193 mg/dL 70-[address] [facility] [address] (BEAKER) (test code [facility] = 1538) [place] [address] POCT-GLUCOSE [id number] 11:50:00 Test Item Value Reference Range Interpretation Comments POC-GLUCOSE METER 185 mg/dL 70-[address] [facility] [address] (BEAKER) (test code [facility] = 1538) [place] [address] CBC W/PLT COUNT & AUTO [id number] 09:22:00 Test Item Value Reference Range Interpretation [...] (BEAKER) (test code = 2801) BASIC METABOLIC [id number] 09:21:00 Test Item Value Reference Range Interpretation [...] NOT APPLICABLE FOR DIALYSIS PATIEN TS. C-REACTIVE [id number] 09:21:00 Test Item Value Reference Range Interpretation Comments C-REACTIVE PROTEIN (BEAKER) (test 2.31 mg/dL 0.00-0.50 H code = 676) HEPATIC FUNCTION [id number] 09:20:00 Test Item Value Reference Range Interpretation [...] code = 47 U/L 6-50 347) POCT-GLUCOSE [id number] 06:53:00 Test Item Value Reference Range Interpretation Comments POC-GLUCOSE METER 102 mg/dL 70-[address] [facility] [address] (BEAKER) (test code [facility] = 1538) [place] [address] POCT-GLUCOSE [id number] 21:32:00 Test Item Value Reference Range Interpretation Comments POC-GLUCOSE METER 212 mg/dL 70-[address] [facility] [address] (BEAKER) (test code [facility] = 1538) [place] [address] POCT-GLUCOSE [id number] 16:26:00 Test Item Value Reference Range Interpretation Comments POC-GLUCOSE METER 170 mg/dL 70-[address] [facility] [address] (BEAKER) (test code Riidr [facility] = 1538) [place] [address] POCT-GLUCOSE [id number] 05:53:00 Test Item Value Reference Range Interpretation Comments POC-GLUCOSE METER 90 mg/dL 70-[address] [facility] [address] (BEAKER) (test code = [facility] 1538) [place] [address] POCT-GLUCOSE [id number] 21:52:00 Test Item Value Reference Range Interpretation Comments POC-GLUCOSE METER 130 mg/dL 70-[address] [facility] [address] (BEAKER) (test code LUCIA [facility] = 1538) [place] [address] POCT-GLUCOSE [id number] 17:16:00 Test Item Value Reference Range Interpretation Comments POC-GLUCOSE METER 177 mg/dL 70-[address] [facility] [address] (BEAKER) (test code [facility] = 1538) [place] [address] [id number] 16:02:00 Test Item Value Reference Range Interpretation Comments POTASSIUM (BEAKER) (test code = 3.9 meq/L 3.5-5.5 379) POCT-GLUCOSE [id number] 12:10:00 Test Item Value Reference Range Interpretation Comments POC-GLUCOSE METER 176 mg/dL 70-[address] [facility] [address] (BEAKER) (test code LUC[facility] = 1538) [place] [address] POCT-GLUCOSE [id number] 05:57:00 Test Item Value Reference Range Interpretation Comments POC-GLUCOSE METER 113 mg/dL 70-[address] [facility] [address] (BEAKER) (test code [facility] = 1538) [place] [address] POCT-GLUCOSE [id number] 21:53:00 Test Item Value Reference Range Interpretation Comments POC-GLUCOSE METER 160 mg/dL 70-[address] [facility] [address] (BEAKER) (test code L[facility] = 1538) [place] [address] POCT-GLUCOSE [id number] 16:49:00 Test Item Value Reference Range Interpretation Comments POC-GLUCOSE METER 158 mg/dL 70-[address] [facility] [address] (BEAKER) (test code [facility] = 1538) [place] [address] POCT-GLUCOSE [id number] 12:14:00 Test Item Value Reference Range Interpretation Comments POC-GLUCOSE METER 162 mg/dL 70-[address] [facility] [address] (BEAKER) (test code [facility] = 1538) [place] [address] BASIC METABOLIC [id number] 04:57:00 Test Item Value Reference Range Interpretation [...] PATIEN TS. CBC W/PLT COUNT & AUTO [id number] 04:28:00 Test Item Value Reference Range Interpretation [...] PERCENT (BEAKER) (test code = 2801) POCT-GLUCOSE [id number] 20:44:00 Test Item Value Reference Range Interpretation Comments POC-GLUCOSE METER 168 mg/dL 70-[address] [facility] [address] (BEAKER) (test code [facility] = 1538) [place] [address] POCT-GLUCOSE [id number] 16:10:00 Test Item Value Reference Range Interpretation Comments POC-GLUCOSE METER 228 mg/dL 70-[address] [facility] [address] (BEAKER) (test code [facility] = 1538) [place] [address] POCT-GLUCOSE [id number] 13:15:00 Test Item Value Reference Range Interpretation Comments POC-GLUCOSE METER 182 mg/dL 70-[address] [facility] [address] (BEAKER) (test code [facility] = 1538) [place] [address] POCT-GLUCOSE [id number] 06:57:00 Test Item Value Reference Range Interpretation Comments POC-GLUCOSE METER 153 mg/dL 70-[address] [facility] [address] (BEAKER) (test code [facility] = 1538) [place] [address] POCT-GLUCOSE [id number] 21:27:00 Test Item Value Reference Range Interpretation Comments POC-GLUCOSE METER 146 mg/dL 70-[address] [facility] [address] ([facility]) (test code [facility] = 1538) [place] [address] POCT-GLUCOSE [id number] 17:17:00 Test Item Value Reference Range Interpretation Comments POC-GLUCOSE METER 134 mg/dL 70-[address] [facility] [address] ([facility]) (test code [facility] = 1538) [place] [address] POCT-GLUCOSE [id number] 13:49:00 Test Item Value Reference Range Interpretation Comments POC-GLUCOSE METER 177 mg/dL 70-[address] [facility] [address] ([facility]) (test code LUCIA Ba[facility]a [facility] = 1538) [place] [address] POCT-GLUCOSE [id number] 05:34:00 Test Item Value Reference Range Interpretation Comments POC-GLUCOSE METER 118 mg/dL 70-[address] [facility] [address] ([facility]) (test code [facility] = 1538) [place] [address] POCT-GLUCOSE [id number] 21:14:00 Test Item Value Reference Range Interpretation Comments POC-GLUCOSE METER 149 mg/dL 70-[address] [facility] [address] ([facility]) (test code LUCIA Ba[place]a [facility] = 1538) [place] [address] POCT-GLUCOSE [id number] 17:44:00 Test Item Value Reference Range Interpretation Comments POC-GLUCOSE METER 132 mg/dL 70-[address] [facility] [address] ([facility] (test code [facility] = 1538) [place] [address] POCT-GLUCOSE [id number] 12:21:00 Test Item Value Reference Range Interpretation Comments POC-GLUCOSE METER 168 mg/dL 70-[address] [facility] [address] ([facility] (test code [facility] = 1538) [place] [address] [id number] 05:19:00 Test Item Value Reference Range Interpretation Comments PARTIAL THROMBOPLASTIN TIME 84.3 seconds 23.2-36.1 H (BEAKER) (test code = 760) POCT-GLUCOSE [id number] 20:50:00 Test Item Value Reference Range Interpretation Comments POC-GLUCOSE METER 147 mg/dL 70-[address] [facility] [address] (BEAKER) (test code [facility] = 1538) [place] [address] POCT-GLUCOSE [id number] 17:19:00 Test Item Value Reference Range Interpretation Comments POC-GLUCOSE METER 238 mg/dL 70-[address] [facility] [address] (BEAKER) (test code [facility] = 1538) [place] [address] [id number] 15:09:00 Test Item Value Reference Range Interpretation Comments PARTIAL THROMBOPLASTIN TIME 74.8 seconds 23.2-36.1 H (BEAKER) (test code = 760) POCT-GLUCOSE [id number] 11:57:00 Test Item Value Reference Range Interpretation Comments POC-GLUCOSE METER 146 mg/dL 70-[address] [facility] [address] (BEAKER) (test code [facility] = 1538) [place] [address] POCT-GLUCOSE [id number] 05:37:00 Test Item Value Reference Range Interpretation Comments POC-GLUCOSE METER 139 mg/dL 70-[address] [facility] [address] (BEAKER) (test code [facility] = 1538) [place] [address] BASIC METABOLIC [id number] 04:04:00 Test Item Value Reference Range Interpretation [...] I S NOT APPLICABLE FOR DIALYSIS PATIEN [id number] 04:02:00 Test Item Value Reference Range Interpretation Comments PARTIAL THROMBOPLASTIN TIME 76.5 seconds 23.2-36.1 H (BEAKER) (test code = 760) CBC W/PLT COUNT & AUTO [id number] 03:41:00 Test Item Value Reference Range Interpretation [...] PERCENT (BEAKER) (test code = 2801) POCT-GLUCOSE [id number] 22:12:00 Test Item Value Reference Range Interpretation Comments POC-GLUCOSE METER 247 mg/dL 70-[address] [facility] [address] (BEAKER) (test code [facility] = 1538) [place] [address] [id number] 21:11:00 Test Item Value Reference Range Interpretation Comments PARTIAL THROMBOPLASTIN TIME 62.4 seconds 23.2-36.1 H (BEAKER) (test code = 760) [id number] 12:45:00 Test Item Value Reference Range Interpretation Comments PARTIAL THROMBOPLASTIN TIME 101.2 seconds 23.2-36.1 H (BEAKER) (test code = 760) POCT-GLUCOSE [id number] 11:48:00 Test Item Value Reference Range Interpretation Comments POC-GLUCOSE METER 259 mg/dL 70-[address] [facility] [address] (BEAKER) (test code [facility] = 1538) [place] [address] POCT-GLUCOSE [id number] 05:38:00 Test Item Value Reference Range Interpretation Comments POC-GLUCOSE METER 121 mg/dL 70-[address] [facility] [address] (BEAKER) (test code [facility] = 1538) [place] [address] [id number] 05:33:00 Test Item Value Reference Range Interpretation Comments PARTIAL THROMBOPLASTIN TIME 108.5 seconds 23.2-36.1 H (BEAKER) (test code = 760) POCT-GLUCOSE [id number] 20:59:00 Test Item Value Reference Range Interpretation Comments POC-GLUCOSE METER 197 mg/dL 70-[address] [facility] [address] (BEAKER) (test code [facility] = 1538) [place] [address] POCT-GLUCOSE [id number] 16:47:00 Test Item Value Reference Range Interpretation Comments POC-GLUCOSE METER 150 mg/dL 70-[address] [facility] [address] (BEAKER) (test code [facility] = 1538) [place] [address] [id number] 15:21:00 Test Item Value Reference Range Interpretation Comments PARTIAL THROMBOPLASTIN TIME 79.9 seconds 23.2-36.1 H (BEAKER) (test code = 760) POCT-GLUCOSE [id number] 12:52:00 Test Item Value Reference Range Interpretation Comments POC-GLUCOSE METER 207 mg/dL 70-[address] [facility] [address] (BEAKER) (test code [facility] = 1538) [place] [address] [id number] 09:17:00 Test Item Value Reference Range Interpretation Comments PARTIAL THROMBOPLASTIN TIME 95.7 seconds 23.2-36.1 H (BEAKER) (test code = 760) BASIC METABOLIC [id number] 02:36:00 Test Item Value Reference Range Interpretation [...] I S NOT APPLICABLE FOR DIALYSIS PATIEN [id number] 02:26:00 Test Item Value Reference Range Interpretation Comments PARTIAL THROMBOPLASTIN TIME 104.6 seconds 23.2-36.1 H (BEAKER) (test code = 760) CBC W/PLT COUNT & AUTO [id number] 02:18:00 Test Item Value Reference Range Interpretation [...] PERCENT (BEAKER) (test code = 2801) POCT-GLUCOSE [id number] 22:17:00 Test Item Value Reference Range Interpretation Comments POC-GLUCOSE METER 211 mg/dL 70-[address] [facility] [address] ([facility]) (test code [facility] = 1538) [place] [address] [id number] 20:16:00 Test Item Value Reference Range Interpretation Comments PARTIAL THROMBOPLASTIN TIME 107.2 seconds 23.2-36.1 H (BEAKER) (test code = 760) POCT-GLUCOSE [id number] 16:24:00 Test Item Value Reference Range Interpretation Comments POC-GLUCOSE METER 167 mg/dL 70-[address] [facility] [address] ([facility]) (test code [facility] = 1538) [place] [address] [id number] 14:17:00 Test Item Value Reference Range Interpretation Comments PARTIAL THROMBOPLASTIN TIME 96.3 seconds 23.2-36.1 H (BEAKER) (test code = 760) POCT-GLUCOSE [id number] 11:40:00 Test Item Value Reference Range Interpretation Comments POC-GLUCOSE METER 190 mg/dL 70-[address] [facility] [address] ([facility]) (test code [facility] = 1538) [place] [address] [id number] 07:52:00 Test Item Value Reference Range Interpretation Comments PARTIAL THROMBOPLASTIN TIME 58.0 seconds 23.2-36.1 H (BEAKER) (test code = 760) BASIC METABOLIC [id number] 06:09:00 Test Item Value Reference Range Interpretation [...] S NOT APPLICABLE FOR DIALYSIS PATIEN TS. [id number] 05:53:00 Test Item Value Reference Range Interpretation Comments PARTIAL THROMBOPLASTIN TIME 138.1 seconds 23.2-36.1 H (BEAKER) (test code = 760) CBC W/PLT COUNT & AUTO [id number] 05:45:00 Test Item Value Reference Range Interpretation [...] GRANULOCYTES-RELATIVE PERCENT (BEAKER) (test code = 2801) [id number] 23:56:00 Test Item Value Reference Range Interpretation Comments PARTIAL THROMBOPLASTIN TIME 96.6 seconds 23.2-36.1 H (BEAKER) (test code = 760) POCT-GLUCOSE [id number] 21:22:00 Test Item Value Reference Range Interpretation Comments POC-GLUCOSE METER 160 mg/dL 70-[address] [facility] [address] (BEAKER) (test code [facility] = 1538) [place] [address] POCT-GLUCOSE [id number] 17:27:00 Test Item Value Reference Range Interpretation Comments POC-GLUCOSE METER 151 mg/dL 70-[address] [facility] [address] (BEAKER) (test code [facility] = 1538) [place] [address] [id number] 16:40:00 Test Item Value Reference Range Interpretation Comments PARTIAL THROMBOPLASTIN TIME 40.0 seconds 23.2-36.1 H (BEAKER) (test code = 760) POCT-GLUCOSE [id number] 13:43:00 Test Item Value Reference Range Interpretation Comments POC-GLUCOSE METER 164 mg/dL 70-[address] [facility] [address] (BEAKER) (test code [facility] = 1538) [place] [address] [id number] 13:34:00 Test Item Value Reference Range Interpretation Comments PARTIAL THROMBOPLASTIN TIME 141.6 seconds 23.2-36.1 H (BEAKER) (test code = 760) OCCULT BLOOD, [id number] 13:20:00 Test Item Value Reference Range Interpretation Comments FECAL OCCULT BLOOD (BEAKER) (test Negative Negative code = 618) BASIC METABOLIC [id number] 12:13:00 Test Item Value Reference Range Interpretation [...] APPLICABLE FOR DIALYSIS PATIEN TS. HEPATIC FUNCTION [id number] 12:13:00 Test Item Value Reference Range Interpretation [...] 6-50 347) CBC W/PLT COUNT & AUTO [id number] 11:47:00 Test Item Value Reference Range Interpretation [...] GRANULOCYTES-RELATIVE PERCENT (BEAKER) (test code = 2801) [id number] 06:33:00 Test Item Value Reference Range Interpretation Comments PARTIAL THROMBOPLASTIN TIME 102.3 seconds 23.2-36.1 H (BEAKER) (test code = 760) POCT-GLUCOSE [id number] 05:47:00 Test Item Value Reference Range Interpretation Comments POC-GLUCOSE METER 151 mg/dL 70-[address] [facility] [address] (BEAKER) (test code [facility] = 1538) [place] [address] BASIC METABOLIC [id number] 01:16:00 Test Item Value Reference Range Interpretation [...] S NOT APPLICABLE FOR DIALYSIS PATIEN TS. [id number] 01:06:00 Test Item Value Reference Range Interpretation Comments PARTIAL THROMBOPLASTIN TIME 46.8 seconds 23.2-36.1 H (BEAKER) (test code = 760) [id number] 23:18:00 Test Item Value Reference Range Interpretation Comments PARTIAL THROMBOPLASTIN TIME 177.9 seconds 23.2-36.1 HH (BEAKER) (test code = 760) POCT-GLUCOSE [id number] 22:05:00 Test Item Value Reference Range Interpretation Comments POC-GLUCOSE METER 204 mg/dL 70-[address] [facility] [address] ([facility] (test code [facility] = 1538) [place] [address] [id number] 16:35:00 Test Item Value Reference Range Interpretation Comments PARTIAL THROMBOPLASTIN TIME 47.9 seconds 23.2-36.1 H (BEAKER) (test code = 760) POCT-GLUCOSE [id number] 16:33:00 Test Item Value Reference Range Interpretation Comments POC-GLUCOSE METER 167 mg/dL 70-[address] [facility] [address] ([facility]) (test code [facility] = 1538) [place] [address] [id number] 15:11:00 Test Item Value Reference Range Interpretation Comments PARTIAL THROMBOPLASTIN TIME 198.7 seconds 23.2-36.1 HH (BEAKER) (test code = 760) POCT-GLUCOSE [id number] 12:08:00 Test Item Value Reference Range Interpretation Comments POC-GLUCOSE METER 166 mg/dL 70-[address] [facility] [address] ([facility]) (test code [facility] = 1538) [place] [address] [id number] 07:27:00 Test Item Value Reference Range Interpretation Comments PARTIAL THROMBOPLASTIN TIME 65.6 seconds 23.2-36.1 H (BEAKER) (test code = 760) [id number] 05:59:00 Test Item Value Reference Range Interpretation Comments PARTIAL THROMBOPLASTIN TIME 156.1 seconds 23.2-36.1 HH (BEAKER) (test code = 760) BASIC METABOLIC [id number] 05:54:00 Test Item Value Reference Range Interpretation [...] NOT APPLICABLE FOR DIALYSIS PATIEN TS. POCT-GLUCOSE [id number] 05:45:00 Test Item Value Reference Range Interpretation Comments POC-GLUCOSE METER 145 mg/dL 70-[address] [facility] [address] (BEAKER) (test code [facility] = 1538) [place] [address] CBC W/PLT COUNT & AUTO [id number] 05:36:00 Test Item Value Reference Range Interpretation [...] PERCENT (BEAKER) (test code = 2801) POCT-GLUCOSE [id number] 20:29:00 Test Item Value Reference Range Interpretation Comments POC-GLUCOSE METER 128 mg/dL 70-[address] [facility] [address] (BEAKER) (test code [facility] = 1538) [place] [address] POCT-GLUCOSE [id number] 16:58:00 Test Item Value Reference Range Interpretation Comments POC-GLUCOSE METER 160 mg/dL 70-[address] [facility] [address] (BEAKER) (test code [facility] = 1538) [place] [address] POCT-GLUCOSE [id number] 11:58:00 Test Item Value Reference Range Interpretation Comments POC-GLUCOSE METER 163 mg/dL 70-[address] [facility] [address] ([facility]) (test code [facility] = 1538) [place] [address] [id number] 05:25:00 Test Item Value Reference Range Interpretation Comments PARTIAL THROMBOPLASTIN TIME 79.6 seconds 23.2-36.1 H (BEAKER) (test code = 760) CBC W/PLT COUNT & AUTO [id number] 05:18:00 Test Item Value Reference Range Interpretation [...] GRANULOCYTES-RELATIVE PERCENT (BEAKER) (test code = 2801) [id number] 21:47:00 Test Item Value Reference Range Interpretation Comments PARTIAL THROMBOPLASTIN TIME 85.4 seconds 23.2-36.1 H (BEAKER) (test code = 760) POCT-GLUCOSE [id number] 16:24:00 Test Item Value Reference Range Interpretation Comments POC-GLUCOSE METER 189 mg/dL 70-[address] [facility] [address] (BEAKER) (test code [facility] = 1538) [place] [address] [id number] 13:02:00 Test Item Value Reference Range Interpretation Comments PARTIAL THROMBOPLASTIN TIME 51.8 seconds 23.2-36.1 H (BEAKER) (test code = 760) POCT-GLUCOSE [id number] 11:41:00 Test Item Value Reference Range Interpretation Comments POC-GLUCOSE METER 169 mg/dL 70-[address] [facility] [address] (BEAKER) (test code [facility] = 1538) [place] [address] VITAMIN D, [id number]-[id number] 08:15:00 Test Item Value Reference Range Interpretation Comments VITAMIN D 25-OH (BEAKER) (test code 5.4 ng/mL 6.6-49.9 L = 2764) Effective 12/25/2016: Reference Range ChangeNew: 6.6-49.9 ng/mL Previous: 13.0-47.8 ng/mLRecommended Vitamin D Target Range: 30.0-40.0 ng/mLPOCT-GLUCOSE [id number] 06:20:00 Test Item Value Reference Range Interpretation Comments POC-GLUCOSE METER 158 mg/dL 70-[address] [facility] [address] ([facility] (test code [facility] = 1538) [place] [address] HEPATIC FUNCTION [id number] 05:45:00 Test Item Value Reference Range Interpretation [...] Specimen markedly (test code = 347) hemolyzed [id number] 05:30:00 Test Item Value Reference Range Interpretation Comments PARTIAL THROMBOPLASTIN TIME 63.3 seconds 23.2-36.1 H (AKER) (test code = 760) Prior to initiating heparinCBC W/PLT COUNT & AUTO [id number] 05:23:00 Test Item Value Reference Range Interpretation [...] GRANULOCYTES-RELATIVE PERCENT (BEAKER) (test code = 2801) [id number] 00:59:00 Test Item Value Reference Range Interpretation Comments PARTIAL THROMBOPLASTIN TIME 62.3 seconds 23.2-36.1 H (BEAKER) (test code = 760) POCT-GLUCOSE [id number] 21:34:00 Test Item Value Reference Range Interpretation Comments POC-GLUCOSE METER 196 mg/dL 70-[address] [facility] [address] (BEAKER) (test code [facility] = 1538) [place] [address] [id number] 18:14:00 Test Item Value Reference Range Interpretation Comments PARTIAL THROMBOPLASTIN TIME 82.3 seconds 23.2-36.1 H (BEAKER) (test code = 760) POCT-GLUCOSE [id number] 17:01:00 Test Item Value Reference Range Interpretation Comments POC-GLUCOSE METER 192 mg/dL 70-[address] [facility] [address] (BEAKER) (test code [facility] = 1538) [place] [address] POCT-GLUCOSE [id number] 13:29:00 Test Item Value Reference Range Interpretation Comments POC-GLUCOSE METER 207 mg/dL 70-[address] [facility] [address] (BEAKER) (test code [facility] = 1538) [place] [address] [id number] 12:48:00 Test Item Value Reference Range Interpretation Comments PARTIAL THROMBOPLASTIN TIME 63.3 seconds 23.2-36.1 H (BEAKER) (test code = 760) CBC W/PLT COUNT & AUTO [id number] 12:25:00 Test Item Value Reference Range Interpretation [...] PERCENT (BEAKER) (test code = 2801) POCT-GLUCOSE [id number] 06:40:00 Test Item Value Reference Range Interpretation Comments POC-GLUCOSE METER 166 mg/dL 70-[address] [facility] [address] (BEAKER) (test code [facility] = 1538) [place] [address] BUN AND [id number] 06:07:00 Test Item Value Reference Range Interpretation [...] 12 noon Amikacin Blood level draw. Thank [id number] 05:48:00 Test Item Value Reference Range Interpretation Comments PARTIAL THROMBOPLASTIN TIME 60.0 seconds 23.2-36.1 H (BEAKER) (test code = 760) ANTI-NUCLEAR ANTIBODY (TAMMI)2017-11-20 00:24:00 Test Item Value Reference Range Interpretation Comments ANTI-NUCLEAR ANTIBODY (TAMMI) (AKER) Negative Negative (test code = 418) Test performed by IFA method.Test performed by IFA method.[id number] 23:01:00 Test Item Value Reference Range Interpretation Comments PARTIAL THROMBOPLASTIN TIME 58.3 seconds 23.2-36.1 H (AKER) (test code = 760) POCT-GLUCOSE [id number] 21:22:00 Test Item Value Reference Range Interpretation Comments POC-GLUCOSE METER 171 mg/dL 70-[address] [facility] [address] ([facility]) (test code [facility] = 1538) [place] [address] POCT-GLUCOSE [id number] 16:54:00 Test Item Value Reference Range Interpretation Comments POC-GLUCOSE METER 135 mg/dL 70-[address] [facility] [address] ([facility]) (test code [facility] = 1538) [place] [address] PERIPHERAL BLOOD SMEAR - PATHOLOGIST [id number] 15:35:00 Test Item Value Reference Range Interpretation Comments PERIPHERAL SMR REVIEW Neutrophilic ([facility]) (test code = leukocytosis with 2640) increased band forms and unremarkable WBC morphology. Normocytic anemia with unremarkable RBCs. Platelets unremarkable. No dysmorphic or blast forms seen. [id number] Nazario Becker M.D. ([facility]) (test code = (electronic signature) 1492) (MANUAL DIFFERENTIAL)2017-11-19 15:31:00 Test Item Value Reference [...] (BEAKER) (test code = 1+ few 480) [id number] 15:21:00 Test Item Value Reference Range Interpretation Comments PARTIAL THROMBOPLASTIN TIME 39.3 seconds 23.2-36.1 H (BEAKER) (test code = 760) POCT-GLUCOSE [id number] 13:08:00 Test Item Value Reference Range Interpretation Comments POC-GLUCOSE METER 140 mg/dL 70-[address] [facility] [address] (BEAKER) (test code [facility] = 1538) [place] [address] CBC W/PLT COUNT & AUTO [id number] 09:33:00 Test Item Value Reference Range Interpretation [...] (BEAKER) (test code = 413) BUN AND [id number] 08:45:00 Test Item Value Reference Range Interpretation [...] 12 noon Amikacin Blood level draw. Thank [id number] 08:27:00 Test Item Value Reference Range Interpretation Comments PARTIAL THROMBOPLASTIN TIME 29.5 seconds 23.2-36.1 (BEAKER) (test code = 760) POCT-GLUCOSE [id number] 04:48:00 Test Item Value Reference Range Interpretation Comments POC-GLUCOSE METER 142 mg/dL 70-[address] [facility] [address] ([facility]) (test code [facility] = 1538) [place] [address] RHEUMATOID FACTOR AB, REFLEX TO [id number] 01:10:00 Test Item Value Reference Range Interpretation Comments RHEUMATOID FACTOR (BEAKER) (test Negative code = 573) [id number] 00:56:00 Test Item Value Reference Range Interpretation [...] patients with mechanical heart valves.VENOUS DOPPLER LEGS, [id number] 22:05:00Reason for exam:->leukocytosis persistentFINAL REPORT CLINICAL HISTORY: [...] MDReport Verified Date/Time: 11/18/2017 22:05:25 Reading Location: [address] Reading Room POCT-GLUCOSE [id number] 20:56:00 Test Item Value Reference Range Interpretation Comments POC-GLUCOSE METER 111 mg/dL 70-[address] [facility] [address] (HARDIK) (test code [facility] = 1538) [place] [address] AMIKACIN LEVEL, [id number] 17:26:00 Test Item Value Reference Range Interpretation Comments AMIKACIN, TROUGH (HARDIK) (test 10.3 ug/mL 4.0-8.0 HH code = 1830) Therapeutic Range (ug/mL)Peak: 25.0-35.0Trough: 4.0-8.0 Toxic: >35.0VENOUS DOPPLER ARMS, [id number] 16:59:00Reason for exam:->swelling right handAddendum BeginsREPORT STATUS:A Addendum:A left-sided PICC is visualized. End of addendum. Signed: Dangelo Proctoreport Verified Date/Time: 11/18/2017 16:59:45 Reading Location: [facility] Radiology Reading RoomAddendum EndsFINAL REPORT Bilateral [...] Proctoreport Verified Date/Time: 11/18/2017 15:36:41 [facility] POCT-GLUCOSE [id number] 16:58:00 Test Item Value Reference Range Interpretation Comments POC-GLUCOSE METER 100 mg/dL 70-[address] [facility] [address] ([facility]) (test code [employer] [facility] = 1538) [place] [address] POCT-GLUCOSE [id number] 11:30:00 Test Item Value Reference Range Interpretation Comments POC-GLUCOSE METER 119 mg/dL 70-[address] [facility] [address] ([facility]) (test code [employer] [facility] = 1538) [place] [address] HEPATITIS B SURFACE [id number] 11:18:00 Test Item Value Reference Range Interpretation Comments HEPATITIS B SURFACE ANTIBODY 436.5 mIU/mL <8.0 H (BEAKER) (test code = 647) HEPATITIS C [id number] 11:18:00 Test Item Value Reference Range Interpretation Comments HEPATITIS C ANTIBODY (BEAKER) Nonreactive Nonreactive (test code = 367) AMIKACIN LEVEL, [id number] 11:03:00 Test Item Value Reference Range Interpretation Comments AMIKACIN, PEAK (BEAKER) (test code 26.0 ug/mL 25.0-35.0 = 1831) Therapeutic Range (ug/mL)Peak: 25.0-35.0Trough: 4.0-8.0 Toxic: >35.0 SURGICALLY OBTAINED CULTURE + GRAM [id number] 08:25:00 Test Item Value Reference Interpretation Comments [...] No organisms seen (BEAKER) (test code = 837069) ANAEROBIC [id number] 07:53:00 Test Item Value Reference Range Interpretation Comments CULTURE (BEAKER) (test No anaerobes isolated code = 1095) GRAM STAIN RESULT 1+ WBCs (BEAKER) (test code = 1123) GRAM STAIN RESULT No organisms seen (BEAKER) (test code = 82400) POCT-GLUCOSE [id number] 06:37:00 Test Item Value Reference Range Interpretation Comments POC-GLUCOSE METER 135 mg/dL 70-[address] [facility] [address] (BEAKER) (test code [facility] = 1538) [place] [address] HIV-1 ANTIGEN WITH HIV-1/2 [id number] 05:51:00 Test Item Value Reference Range Interpretation Comments HIV-1 ANTIGEN WITH HIV 1\\T\\2 Nonreactive Nonreactive ANTIBODY (2) (BEAKER) (test code = 2586) HEPATITIS B SURFACE [id number] 05:46:00 Test Item Value Reference Range Interpretation Comments HEPATITIS B SURFACE ANTIGEN (2) Nonreactive Nonreactive (BEAKER) (test code = 2585) CBC W/PLT COUNT & AUTO [id number] 05:11:00 Test Item Value Reference Range Interpretation [...] code = 2801) Smear reviewed. Results confirmed.POCT-GLUCOSE [id number] 23:01:00 Test Item Value Reference Range Interpretation Comments POC-GLUCOSE METER 111 mg/dL 70-[address] [facility] [address] (BEAKER) (test code [facility] = 1538) [place] [address] POCT-GLUCOSE [id number] 17:15:00 Test Item Value Reference Range Interpretation Comments POC-GLUCOSE METER 100 mg/dL 70-[address] [facility] [address] ([facility]) (test code [facility] = 1538) [place] [address] C-REACTIVE [id number] 14:34:00 Test Item Value Reference Range Interpretation Comments C-REACTIVE PROTEIN (BEAKER) (test 35.06 mg/dL 0.00-0.50 H code = 676) POCT-GLUCOSE [id number] 12:50:00 Test Item Value Reference Range Interpretation Comments POC-GLUCOSE METER 221 mg/dL 70-[address] [facility] [address] (BEAKER) (test code [facility] = 1538) [place] [address] CBC W/PLT COUNT & AUTO [id number] 10:56:00 Test Item Value Reference Range Interpretation [...] PERCENT (BEAKER) (test code = 2801) POCT-GLUCOSE [id number] 10:03:00 Test Item Value Reference Range Interpretation Comments POC-GLUCOSE METER 104 mg/dL 70-[address] [facility] [address] (BEAKER) (test code [facility] = 1538) [place] [address] BASIC METABOLIC [id number] 04:51:00 Test Item Value Reference Range Interpretation [...] NOT APPLICABLE FOR DIALYSIS PATIEN TS. POCT-GLUCOSE [id number] 20:41:00 Test Item Value Reference Range Interpretation Comments POC-GLUCOSE METER 127 mg/dL 70-[address] [facility] [address] ([facility]) (test code [facility] = 1538) [place] [address] POCT-GLUCOSE [id number] 17:03:00 Test Item Value Reference Range Interpretation Comments POC-GLUCOSE METER 145 mg/dL 70-[address] [facility] [address] ([facility]) (test code [facility] = 1538) [place] [address] [id number] 12:39:00 Test Item Value Reference Range Interpretation Comments PROCALCITONIN (BEAKER) (test code 1.27 ng/mL <0.05 H = 3036) SEPSIS RISK (ng/mL)Low: 0.05-0.50Intermediate: 0.51-2.00High: >=2.01POCT-GLUCOSE [id number] 11:58:00 Test Item Value Reference Range Interpretation Comments POC-GLUCOSE METER 120 mg/dL 70-[address] [facility] [address] ([facility]) (test code [facility] = 1538) [place] [address] CBC W/PLT COUNT & AUTO [id number] 09:50:00 Test Item Value Reference Range Interpretation [...] PERCENT (BEAKER) (test code = 2801) POCT-GLUCOSE [id number] 06:32:00 Test Item Value Reference Range Interpretation Comments POC-GLUCOSE METER 124 mg/dL 70-[address] [facility] [address] (BEAKER) (test code [facility] = 1538) [place] [address] BASIC METABOLIC [id number] 06:27:00 Test Item Value Reference Range Interpretation [...] APPLICABLE FOR DIALYSIS PATIEN TS. BUN AND [id number] 06:26:00 Test Item Value Reference Range Interpretation [...] APPLICABLE FOR DIALYSIS PATIEN TS. HEMOGLOBIN AND [id number] 06:03:00 Test Item Value Reference Range Interpretation Comments HEMOGLOBIN (BEAKER) (test code = 8.6 GM/DL 12.0-15.5 L 410) HEMATOCRIT (BEAKER) (test code = 25.9 % 36.0-46.0 L 411) CT, CHEST, WITHOUT [id number] 22:51:00FINAL REPORT CLINICAL HISTORY: Leukocytosis FINDINGS: Multiple [...] MDReport Verified Date/Time: 11/15/2017 22:51:35 Reading Location: [address] [place], [id number] 22:51:00FINAL REPORT CLINICAL HISTORY: Leukocytosis FINDINGS: Multiple [...] MDReport Verified Date/Time: 11/15/2017 22:51:35 Reading Location: [address] Reading Room POCT-GLUCOSE [id number] 21:14:00 Test Item Value Reference Range Interpretation Comments POC-GLUCOSE METER 128 mg/dL 70-110 H TESTED AT [address]) (test code [facility] = 1538) [place] [address] POCT-GLUCOSE [id number] 17:10:00 Test Item Value Reference Range Interpretation Comments POC-GLUCOSE METER 109 mg/dL 70-[address] [facility] [address] ([facility]) (test code [facility] = 1538) [place] [address] POCT-GLUCOSE [id number] 12:15:00 Test Item Value Reference Range Interpretation Comments POC-GLUCOSE METER 116 mg/dL 70-[address] [facility] [address] ([facility]) (test code [facility] = 1538) [place] [address] SPIN/CONCENTRATION [id number] 10:39:00 Test Item Value Reference Range Interpretation Comments CONCENTRATION CHARGED (BEAKER) (test Done code = 2657) CBC W/PLT COUNT & AUTO [id number] 09:22:00 Test Item Value Reference Range Interpretation [...] (test code = 2801) TYPE AND SCREEN, [id number] 08:18:00 Test Item Value Reference Range Interpretation Comments ABO/RH AUTOMATED (BEAKER) (test B POSITIVE code = 2260) AB SCREEN (BEAKER) (test code = NEGATIVE 923) ANAEROBIC [id number] 07:55:00 Test Item Value Reference Range Interpretation Comments CULTURE (BEAKER) (test No anaerobes isolated code = 1095) BASIC METABOLIC [id number] 05:40:00 Test Item Value Reference Range Interpretation [...] APPLICABLE FOR DIALYSIS PATIEN TS. BUN AND [id number] 05:37:00 Test Item Value Reference Range Interpretation [...] APPLICABLE FOR DIALYSIS PATIEN TS. VANCOMYCIN LEVEL, [id number] 05:36:00 Test Item Value Reference Range Interpretation Comments VANCOMYCIN TROUGH ([facility]) (test 17.5 ug/mL 10.0-20.0 code = 522) HEMOGLOBIN AND [id number] 05:23:00 Test Item Value Reference Range Interpretation Comments HEMOGLOBIN (BEAKER) (test code = 6.4 GM/DL 12.0-15.5 L 410) HEMATOCRIT (BEAKER) (test code = 19.3 % 36.0-46.0 LL 411) POCT-GLUCOSE [id number] 16:12:00 Test Item Value Reference Range Interpretation Comments POC-GLUCOSE METER 129 mg/dL 70-[address] [facility] [address] ([facility]) (test code [facility] = 1538) [place] [address] POCT-GLUCOSE [id number] 12:07:00 Test Item Value Reference Range Interpretation Comments POC-GLUCOSE METER 114 mg/dL 70-[address] [facility] [address] ([facility]) (test code [employer] [facility] = 1538) [place] [address] POCT-GLUCOSE [id number] 10:00:00 Test Item Value Reference Range Interpretation Comments POC-GLUCOSE METER 97 mg/dL 70-[address] [facility] [address] ([facility]) (test code = [facility] [place] [address] SURGICALLY OBTAINED CULTURE + GRAM [id number] 09:36:00 Test Item Value Reference Range Interpretation Comments CULTURE (BEAKER) (test code No growth = 1095) GRAM STAIN RESULT (BEAKER) <1+ WBCs (test code = 1123) GRAM STAIN RESULT (BEAKER) No organisms seen (test code = 66837) POCT-GLUCOSE [id number] 06:06:00 Test Item Value Reference Range Interpretation Comments POC-GLUCOSE METER 105 mg/dL 70-[address] [facility] [address] (BEAKER) (test code [facility] = 1538) [place] [address] BASIC METABOLIC [id number] 05:55:00 Test Item Value Reference Range Interpretation [...] PATIEN TS. CBC W/PLT COUNT & AUTO [id number] 05:35:00 Test Item Value Reference Range Interpretation [...] PERCENT (BEAKER) (test code = 2801) POCT-GLUCOSE [id number] 21:11:00 Test Item Value Reference Range Interpretation Comments POC-GLUCOSE METER 94 mg/dL 70-[address] [facility] [address] (BEAKER) (test code = [facility] 1538) [place] [address] POCT-GLUCOSE [id number] 16:51:00 Test Item Value Reference Range Interpretation Comments POC-GLUCOSE METER 121 mg/dL 70-[address] [facility] [address] (BEAKER) (test code [facility] = 1538) [place] [address] POCT-GLUCOSE [id number] 15:10:00 Test Item Value Reference Range Interpretation Comments POC-GLUCOSE METER 97 mg/dL 70-[address] [facility] [address] (BEAKER) (test code = [facility] 1538) [place] [address] [id number] 10:17:00 Test Item Value Reference Range Interpretation Comments PROCALCITONIN (BEAKER) (test code 1.41 ng/mL <0.05 H = 3036) SEPSIS RISK (ng/mL)Low: 0.05-0.50Intermediate: 0.51-2.00High: >=2.01HEPATIC FUNCTION [id number] 09:52:00 Test Item Value Reference Range Interpretation [...] code = 12 U/L 6-50 347) POCT-GLUCOSE [id number] 05:57:00 Test Item Value Reference Range Interpretation Comments POC-GLUCOSE METER 87 mg/dL 70-[address] [facility] [address] (BEAKER) (test code = [facility] 1538) [place] [address] BASIC METABOLIC [id number] 05:34:00 Test Item Value Reference Range Interpretation [...] PATIEN TS. CBC W/PLT COUNT & AUTO [id number] 05:33:00 Test Item Value Reference Range Interpretation [...] (BEAKER) (test code = 2801) BUN AND [id number] 05:32:00 Test Item Value Reference Range Interpretation Comments BLOOD UREA NITROGEN 21 mg/dL 10-26 (BEAKER) (test code = 354) CREATININE (BEAKER) 0.79 mg/dL 0.50-1.20 (test code = 358) EGFR (BEAKER) (test 91 mL/min/1.73 ESTIMA YUMIKO GFR IS code = 1092) sq m NOT ACCURATE CREATININE CLEARANCE IN PREDICTING GLOMERULAR FILTRATION RATE . ESTIMATED GFR I S NOT APPLICABLE FOR DIALYSIS PATIEN TS. BLOOD [id number] 04:00:00 Test Item Value Reference Range Interpretation Comments CULTURE (BEAKER) (test No growth in 5 days code = 1095) BLOOD [id number] 01:00:00 Test Item Value Reference Range Interpretation Comments CULTURE (BEAKER) (test No growth in 5 days code = 1095) POCT-GLUCOSE [id number] 21:25:00 Test Item Value Reference Range Interpretation Comments POC-GLUCOSE METER 135 mg/dL 70-[address] [facility] [address] (BEAKER) (test code [facility] = 1538) [place] [address] ANG, NON-TUNNELED CATH/PICC >5 Y.O.2017-11-12 17:59:00Reason for [...] Impression: Successful PICC insertion as described. Signed: Mandi Mancilla MDReport Verified Date/Time: 11/12/2017 17:59:19 Reading Location: [facility] Radiology Reading Room POCT-GLUCOSE [id number] 16:37:00 Test Item Value Reference Range Interpretation Comments POC-GLUCOSE METER 98 mg/dL 70-[address] [facility] [address] ([facility]) (test code = [facility] 1538) [place] [address] PERIPHERAL BLOOD SMEAR - PATH REVIEW LAB [id number] 08:14:00 Test Item Value Reference Range Interpretation Comments PERIPHERAL SMR REVIEW Neutrophilic ([facility]) (test code = leukocytosis and 2640) microcytic anemia. No blast forms seen. [id number] Nazario Becker M.D. ([facility]) (test code = (electronic signature) 3180) (MANUAL DIFFERENTIAL)2017-11-12 08:12:00 Test Item Value Reference [...] few 963) BODY FLUID CULTURE + GRAM [id number] 08:10:00 Test Item Value Reference Range Interpretation Comments CULTURE (BEAKER) (test No growth code = 1095) GRAM STAIN RESULT 3+ White blood cells (BEAKER) (test code = seen 1123) GRAM STAIN RESULT No organisms seen (BEAKER) (test code = 21721) POCT-GLUCOSE [id number] 06:18:00 Test Item Value Reference Range Interpretation Comments POC-GLUCOSE METER 113 mg/dL 70-[address] [facility] [address] (BEAKER) (test code [facility] = 1538) [place] [address] CBC W/PLT COUNT & AUTO [id number] 04:40:00 Test Item Value Reference Range Interpretation [...] (BEAKER) (test code = 2801) BASIC METABOLIC [id number] 03:56:00 Test Item Value Reference Range Interpretation [...] APPLICABLE FOR DIALYSIS PATIEN TS. BUN AND [id number] 03:55:00 Test Item Value Reference Range Interpretation Comments BLOOD UREA NITROGEN 19 mg/dL 10-26 (BEAKER) (test code = 354) CREATININE (BEAKER) 0.81 mg/dL 0.50-1.20 (test code = 358) EGFR (BEAKER) (test 88 mL/min/1.73 ESTIMA YUMIKO GFR IS code = 1092) sq m NOT ACCURATE CREATININE CLEARANCE IN PREDICTING GLOMERULAR FILTRATION RATE . ESTIMATED GFR I S NOT APPLICABLE FOR DIALYSIS PATIEN TS. POCT-GLUCOSE [id number] 20:51:00 Test Item Value Reference Range Interpretation Comments POC-GLUCOSE METER 151 mg/dL 70-[address] [facility] [address] (BEAKER) (test code [facility] = 1530) [place] [address] POCT-GLUCOSE [id number] 17:20:00 Test Item Value Reference Range Interpretation Comments POC-GLUCOSE METER 101 mg/dL 70-[address] [facility] [address] (BEAKER) (test code [facility] = 1538) [place] [address] SPIN/CONCENTRATION [id number] 15:42:00 Test Item Value Reference Range Interpretation Comments CONCENTRATION CHARGED (BEAKER) (test Done code = 2657) POCT-GLUCOSE [id number] 11:34:00 Test Item Value Reference Range Interpretation Comments POC-GLUCOSE METER 109 mg/dL 70-[address] [facility] [address] (BEAKER) (test code [facility] = 1538) [place] [address] VANCOMYCIN LEVEL, [id number] 09:14:00 Test Item Value Reference Range Interpretation Comments VANCOMYCIN TROUGH (BEAKER) (test 10.6 ug/mL 10.0-20.0 code = 522) BASIC METABOLIC [id number] 05:59:00 Test Item Value Reference Range Interpretation [...] APPLICABLE FOR DIALYSIS PATIEN TS. BUN AND [id number] 05:58:00 Test Item Value Reference Range Interpretation Comments BLOOD UREA NITROGEN 17 mg/dL 10-26 (BEAKER) (test code = 354) CREATININE (BEAKER) 0.80 mg/dL 0.50-1.20 (test code = 358) EGFR (BEAKER) (test 90 mL/min/1.73 ESTIMA YUMIKO GFR IS code = 1092) sq m NOT ACCURATE CREATININE CLEARANCE IN PREDICTING GLOMERULAR FILTRATION RATE . ESTIMATED GFR I S NOT APPLICABLE FOR DIALYSIS PATIEN TS. POCT-GLUCOSE [id number] 05:49:00 Test Item Value Reference Range Interpretation Comments POC-GLUCOSE METER 121 mg/dL 70-[address] [facility] [address] (BEAKER) (test code [facility] = 1538) [place] [address] CBC W/PLT COUNT & AUTO [id number] 05:43:00 Test Item Value Reference Range Interpretation [...] PERCENT (BEAKER) (test code = 2801) POCT-GLUCOSE [id number] 00:07:00 Test Item Value Reference Range Interpretation Comments POC-GLUCOSE METER 150 mg/dL 70-[address] [facility] [address] ([facility] (test code [facility] = 1538) [place] [address] RAD, HIP, 1 VIEW, [id number] 23:51:00Reason for exam:->postopFINAL REPORT Right hip. HISTORY: Postoperative. COMPARISON STUDY: October 29, 2017. FINDINGS: A single frontal view of the right hip demonstrates a hemiarthroplasty in place. No cement is identified. There is no evidence of fracture or malalignment on this single projection. Signed: Alexandrea Blanco MDReport Verified Date/Time: 11/10/2017 23:51:24 Reading Location: [facility] B1 C013X Ortho Consult Reading Room RAD, PELVIS, 1 OR 2 [id number] 23:22:00Reason for exam:->Hip ArthroplastyReason for exam:->X-Table Lateral [...] MDReport Verified Date/Time: 11/10/2017 23:22:52 Reading Location: [facility] C013X Ortho Consult Reading Room POCT-GLUCOSE [id number] 22:54:00 Test Item Value Reference Range Interpretation Comments POC-GLUCOSE METER 140 mg/dL 70-[address] [facility] [address] (BEAKER) (test code [facility] = 1538) [place] [address] POCT-GLUCOSE [id number] 16:57:00 Test Item Value Reference Range Interpretation Comments POC-GLUCOSE METER 98 mg/dL 70-[address] [facility] [address] ([facility] (test code = [facility] 1538) [place] [address] POCT-GLUCOSE [id number] 12:41:00 Test Item Value Reference Range Interpretation Comments POC-GLUCOSE METER 111 mg/dL 70-[address] [facility] [address] (BEAKER) (test code [facility] = 1538) [place] [address] (MANUAL DIFFERENTIAL)2017-11-10 07:35:00 Test Item Value Reference [...] = 762) CBC W/PLT COUNT & AUTO [id number] 07:32:00 Test Item Value Reference Range Interpretation [...] 0-0 CELLS (BEAKER) (test code = 413) BASIC METABOLIC [id number] 07:25:00 Test Item Value Reference Range Interpretation [...] S NOT APPLICABLE FOR DIALYSIS PATIEN TS. [id number] 07:25:00 Test Item Value Reference Range Interpretation Comments PHOSPHORUS (BEAKER) (test code = 3.5 mg/dL 2.5-4.5 604) [id number] 07:25:00 Test Item Value Reference Range Interpretation Comments MAGNESIUM (BEAKER) (test code = 1.7 mg/dL 1.5-3.0 627) POCT-GLUCOSE [id number] 06:45:00 Test Item Value Reference Range Interpretation Comments POC-GLUCOSE METER 121 mg/dL 70-[address] [facility] [address] (BEAKER) (test code [facility] = 1538) [place] [address] POCT-GLUCOSE [id number] 22:14:00 Test Item Value Reference Range Interpretation Comments POC-GLUCOSE METER 124 mg/dL 70-[address] [facility] [address] (BEAKER) (test code [facility] = 1538) [place] [address] VANCOMYCIN LEVEL, [id number] 21:02:00 Test Item Value Reference Range Interpretation Comments VANCOMYCIN TROUGH (BEAKER) (test 9.6 ug/mL 10.0-20.0 L code = 522) POCT-GLUCOSE [id number] 17:22:00 Test Item Value Reference Range Interpretation Comments POC-GLUCOSE METER 98 mg/dL 70-[address] [facility] [address] (BEAKER) (test code = [facility] 1531) [place] [address] POCT-GLUCOSE [id number] 11:36:00 Test Item Value Reference Range Interpretation Comments POC-GLUCOSE METER 127 mg/dL 70-[address] [facility] [address] (BEAKER) (test code [facility] = 1538) [place] [address] WOUND CULTURE + GRAM [id number] 11:05:00 Test Item Value Reference Interpretation Comments [...] No organisms seen (AKER) (test code = 762728) POCT-GLUCOSE [id number] 05:54:00 Test Item Value Reference Range Interpretation Comments POC-GLUCOSE METER 116 mg/dL 70-[address] [facility] [address] (BEAKER) (test code [facility] = 1538) [place] [address] [id number] 03:42:00 Test Item Value Reference Range Interpretation Comments PHOSPHORUS (BEAKER) (test code = 3.8 mg/dL 2.5-4.5 604) [id number] 03:42:00 Test Item Value Reference Range Interpretation Comments MAGNESIUM (BEAKER) (test code = 1.9 mg/dL 1.5-3.0 627) BASIC METABOLIC [id number] 03:42:00 Test Item Value Reference Range Interpretation [...] PATIEN TS. CBC W/PLT COUNT & AUTO [id number] 03:21:00 Test Item Value Reference Range Interpretation [...] PERCENT (BEAKER) (test code = 2801) POCT-GLUCOSE [id number] 20:55:00 Test Item Value Reference Range Interpretation Comments POC-GLUCOSE METER 122 mg/dL 70-[address] [facility] [address] (BEAKER) (test code [facility] = 1538) [place] [address] POCT-GLUCOSE [id number] 16:19:00 Test Item Value Reference Range Interpretation Comments POC-GLUCOSE METER 136 mg/dL 70-[address] [facility] [address] (BEAKER) (test code [facility] = 1538) [place] [address] HEMOGLOBIN AND [id number] 14:19:00 Test Item Value Reference Range Interpretation Comments HEMOGLOBIN (BEAKER) (test code = 8.1 GM/DL 12.0-15.5 L 410) HEMATOCRIT (BEAKER) (test code = 24.9 % 36.0-46.0 L 411) POCT-GLUCOSE [id number] 12:13:00 Test Item Value Reference Range Interpretation Comments POC-GLUCOSE METER 142 mg/dL 70-[address] [facility] [address] (BEAKER) (test code [facility] = 1538) [place] [address] POCT-GLUCOSE [id number] 06:02:00 Test Item Value Reference Range Interpretation Comments POC-GLUCOSE METER 109 mg/dL 70-[address] [facility] [address] (BEAKER) (test code [facility] = 1538) [place] [address] POCT-GLUCOSE [id number] 05:38:00 Test Item Value Reference Range Interpretation Comments POC-GLUCOSE METER 150 mg/dL 70-[address] [facility] [address] (BEAKER) (test code [facility] = 1538) [place] [address] TYPE AND SCREEN, [id number] 03:11:00 Test Item Value Reference Range Interpretation Comments ABO/RH AUTOMATED (BEAKER) (test B Positive code = 2260) AB SCREEN (BEAKER) (test code = Negative 923) HEMOGLOBIN AND [id number] 02:41:00 Test Item Value Reference Range Interpretation Comments HEMOGLOBIN (BEAKER) (test code = 5.9 GM/DL 12.0-15.5 LL 410) HEMATOCRIT (BEAKER) (test code = 18.2 % 36.0-46.0 LL 411) COMPREHENSIVE METABOLIC [id number] 01:43:00 Test Item Value Reference Range Interpretation [...] S NOT APPLICABLE FOR DIALYSIS PATIEN TS. [id number] 01:36:00 Test Item Value Reference Range Interpretation Comments PHOSPHORUS (BEAKER) (test code = 3.3 mg/dL 2.5-4.5 604) [id number] 01:36:00 Test Item Value Reference Range Interpretation Comments MAGNESIUM (BEAKER) (test code = 1.9 mg/dL 1.5-3.0 627) LACTIC ACID, VENOUS, WHOLE [id number] 01:29:00 Test Item Value Reference Range Interpretation Comments LACTATE BLOOD VENOUS (2) (BEAKER) 0.8 mmol/L 0.5-2.2 (test code = 2872) Effective 07/19/2015: Units/Reference Range ChangeNew: 0.5-2.2 mmol/L Previous: 5-20 mg/dLCBC W/PLT COUNT & AUTO [id number] 01:25:00 Test Item Value Reference Range Interpretation [...] PERCENT (BEAKER) (test code = 2801) POCT-GLUCOSE [id number] 21:52:00 Test Item Value Reference Range Interpretation Comments POC-GLUCOSE METER 113 mg/dL 70-[address] [facility] [address] (BEAKER) (test code [facility] = 1538) [place] [address] CT, EXTREMITY, LOWER WITHOUT CONTRAST, [id number] 19:15:00FINAL REPORT CT scan of the right [...] Blanco Verified Date/Time: 11/07/2017 19:15:59 Reading Location: [address] Consult Reading Room RAD, HIP, 2 VIEWS, [id number] 16:19:00Reason for exam:->HIP PAIN FINAL REPORT INDICATION:Right [...] Bauer Verified Date/Time: 11/07/2017 16:19:47 Reading Location: [facility] Women CBC W/PLT COUNT & AUTO [id number] 16:00:00 Test Item Value Reference Range Interpretation [...] (BEAKER) (test code Normal = 762) C-REACTIVE [id number] 15:30:00 Test Item Value Reference Range Interpretation Comments C-REACTIVE PROTEIN (BEAKER) (test 47.39 mg/dL 0.00-0.50 H code = 676) COMPREHENSIVE METABOLIC [id number] 15:30:00 Test Item Value Reference Range Interpretation [...] APPLICABLE FOR DIALYSIS PATIEN TS. BASIC METABOLIC [id number] 06:26:00 Test Item Value Reference Range Interpretation [...] PATIEN TS. CBC W/PLT COUNT & AUTO [id number] 06:12:00 Test Item Value Reference Range Interpretation [...] L 0.00-0.20 (test code = 417) POCT-GLUCOSE [id number] 05:55:00 Test Item Value Reference Range Interpretation Comments POC-GLUCOSE METER 120 mg/dL 70-110 H TESTED AT [facility] [address] (BEAKER) (test code [facility] = 1538) [place] [address] POCT-GLUCOSE [id number] 21:07:00 Test Item Value Reference Range Interpretation Comments POC-GLUCOSE METER 121 mg/dL 70-110 H TESTED AT [facility] [address] (BEAKER) (test code [facility] = 1538) [place] [address] POCT-GLUCOSE [id number] 17:45:00 Test Item Value Reference Range Interpretation Comments POC-GLUCOSE METER 131 mg/dL 70-110 H TESTED AT [facility] [address] (BEAKER) (test code [facility] = 1538) [place] [address] HEMOGLOBIN AND [id number] 14:26:00 Test Item Value Reference Range Interpretation Comments HEMOGLOBIN (BEAKER) (test code = 7.9 GM/DL 12.0-15.0 L 410) HEMATOCRIT (BEAKER) (test code = 24.6 % 36.0-45.0 L 411) POCT-GLUCOSE [id number] 11:22:00 Test Item Value Reference Range Interpretation Comments POC-GLUCOSE METER 134 mg/dL 70-110 H TESTED AT [facility] [address] (BEAKER) (test code [facility] = 1538) [place] [address] BASIC METABOLIC [id number] 05:16:00 Test Item Value Reference Range Interpretation [...] APPLICABLE FOR DIALYSIS PATIEN TS. Specimen recollected. [id number] 04:56:00 Test Item Value Reference Range Interpretation Comments POC-GLUCOSE METER 141 mg/dL 70-110 H TESTED AT [facility] [address] (BEAKER) (test code [facility] = 1538) [place] [address] HEMOGLOBIN AND [id number] 04:10:00 Test Item Value Reference Range Interpretation [...] few 965) CBC W/PLT COUNT & AUTO [id number] 21:34:00 Test Item Value Reference Range Interpretation [...] 6.5-10.5 (BEAKER) (test code = 754) POCT-GLUCOSE [id number] 21:17:00 Test Item Value Reference Range Interpretation Comments POC-GLUCOSE METER 126 mg/dL 70-110 H TESTED AT [facility] [address] (BEAKER) (test code [facility] = 1538) [place] [address] POCT-GLUCOSE [id number] 18:04:00 Test Item Value Reference Range Interpretation Comments POC-GLUCOSE METER 117 mg/dL 70-110 H TESTED AT [facility] [address] (BEAKER) (test code [facility] = 1538) [place] [address] POCT-GLUCOSE [id number] 11:38:00 Test Item Value Reference Range Interpretation Comments POC-GLUCOSE METER 133 mg/dL 70-110 H TESTED AT [facility] [address] (BEAKER) (test code [facility] = 1538) [place] [address] BASIC METABOLIC [id number] 04:20:00 Test Item Value Reference Range Interpretation [...] APPLICABLE FOR DIALYSIS PATIEN TS. HEMOGLOBIN AND [id number] 04:11:00 Test Item Value Reference Range Interpretation Comments HEMOGLOBIN (BEAKER) (test code = 8.1 GM/DL 12.0-15.0 L 410) HEMATOCRIT (BEAKER) (test code = 25.6 % 36.0-45.0 L 411) POCT-GLUCOSE [id number] 04:03:00 Test Item Value Reference Range Interpretation Comments POC-GLUCOSE METER 151 mg/dL 70-110 H TESTED AT [facility] [address] ([facility]) (test code [facility] = 1538) [place] [address] RAD, HIP, 1 VIEW, [id number] 21:16:00Reason for exam:->postopShould this be performed at [...] Garciaeport Verified Date/Time: 10/29/2017 21:16:21 Reading Location: [address] ading Room POCT-GLUCOSE [id number] 20:20:00 Test Item Value Reference Range Interpretation Comments POC-GLUCOSE METER 76 mg/dL 70-110 TESTED AT [facility] [address] ([facility]) (test code = [facility] 1538) [place] [address] POCT-GLUCOSE [id number] 15:13:00 Test Item Value Reference Range Interpretation Comments POC-GLUCOSE METER 150 mg/dL 70-110 H TESTED AT [facility] [address] ([facility]) (test code [facility] = 1538) [place] [address] RAD, HIP, OPERATIVE, [id number] 14:41:00Reason for exam:->RequiredFINAL REPORT RIGHT HIP ONE VIEW HISTORY: Right hip pain, right hip arthroplasty COMPARISON: None FINDINGS: Single intraoperative image of the right hip/low pelvis shows in progress changes of right hip total arthroplasty. A reamer is present in the proximal right femur. The acetabular region is obscured by overlying hardware. Signed: Ceci Aldricheport Verified Date/Time: 10/29/2017 14:41:51 Reading Location: [facility] Radiology Reading Room POCT- GLUCOSE [id number] 09:53:00 Test Item Value Reference Range Interpretation Comments POC-GLUCOSE METER 104 mg/dL 70-110 TESTED AT [facility] [address] ([facility]) (test code [facility] = 1538) [place] [address] BASIC METABOLIC [id number] 12:23:00 Test Item Value Reference Range Interpretation [...] APPLICABLE FOR DIALYSIS PATIEN TS. URINALYSIS W/ [id number] 12:21:00 Test Item Value Reference Range Interpretation [...] code = 1663) SOURCE(BEAKER) (test code = 7165) CBC W/PLT COUNT & AUTO [id number] 12:18:00 Test Item Value Reference Range Interpretation [...] L 0.00-0.20 (test code = 417) MRSA [id number] 08:33:00 Test Item Value Reference Range Interpretation Comments CULTURE (BEAKER) (test code No MRSA isolated = 1095)
--- NOTE | 2020-10-27 14:22 | RAD REPORT ---
EXAM DESCRIPTION: RAD - Chest Single View - 10/27/2020 2:00 pm CLINICAL HISTORY: SOB COMPARISON: Chest Single View dated 08/20/2020 FINDINGS: No evidence of edema or pneumonia. The heart size is within normal limits.No acute osseous abnormality. No significant pleural effusions or pneumothorax. Right IJ approach Port-A-Cath IMPRESSION: No acute cardiopulmonary disease.
--- NOTE | 2020-10-27 17:54 | RAD REPORT ---
EXAM DESCRIPTION: US - Extrem Venous W Compress Simone - 10/27/2020 5:44 pm CLINICAL HISTORY: Swelling COMPARISON: None. TECHNIQUE: Real-time sonographic evaluation of the right lower extremity deep venous system was perf ormed. FINDINGS: Normal compressibility, flow augmentation, phasic flow and spontaneous flow is identified in the right lower extremity deep venous system. No intraluminal filling defects seen. IMPRESSION: No DVT in the right lower extremity.
[2020-10-27] MEDS ORDERED: LEVALBUTEROL 1.25 MG/3 ML NEB ONE (21:14)
[2020-10-27] MEDS ORDERED: ONDANSETRON 4 MG (ODT) TAB ONE (21:56)
[2020-10-27] MEDS ORDERED: MORPHINE 4 MG/ML SYR ONE (21:56)
[2020-10-28 00:25] LABS: Absolute Lymphocytes (CBC) 0.8 K/uL (0.7-4.9); Basophils % 0.3 % (0-1.3); Hematocrit 25.2 % (36.0-45.0); Lymphocytes % 3.7 % (15.3-44.8); MPV 6.6 fL (7.6-11.3); RBC Red Blood Cell Count 3.71 M/uL (3.86-4.86)
[2020-10-28 00:33] LABS: Urine Blood Trace-intact (Negative); Urine Glucose Negative (Negative); Urine Protein 1+ (Negative); Urine Specific Gravity 1.025 (1.005-1.030)
[2020-10-28 00:40] LABS: Protime INR 1.63
[2020-10-28 01:01] LABS: ALT/SGPT 19 U/L (12-78); AST/SGOT 9 U/L (15-37); Albumin 2.7 g/dL (3.4-5.0); Alkaline Phosphatase 163 U/L (45-117); BUN Blood Urea Nitrogen 7 mg/dL (7-18); Bicarbonate 30 mmol/L (21-32); Bilirubin Direct 0.1 mg/dL (0-0.2); Bilirubin Total 0.3 mg/dL (0.2-1.0); Ferritin 529.3 ng/mL (8-388); Glucose Level 107 mg/dL (74-106); Lipase 40 U/L (73-393); Protein, Total 6.7 g/dL (6.4-8.2); Sodium Level 141 mmol/L (136-145); Troponin (Emerg Dept Use Only) < 0.02 ng/mL (0.0-0.045)
[2020-10-28 01:02] LABS: Potassium 2.6 mmol/L (3.5-5.1)
[2020-10-28 01:04] LABS: SARS-COV-2 RT PCR NEGATIVE (NEGATIVE)
[2020-10-28 01:16] LABS: Urine Bacteria 20-50 /HPF (<20); Urine Mucus 2+ /HPF (NONE SEEN)
[2020-10-28 01:59] LABS: Anisocytosis 2+; Blood Morphology Comment NOTED (NOT SEEN); Elliptocytes 1+; Hypochromasia 2+; Macrocytosis 1+; Platelet Estimate ADEQ
[2020-10-28] MEDS ORDERED: METHYLPREDNISOLONE 125 MG INJ ONE (02:14)
--- NOTE | 2020-10-28 02:14 | EDPHYS ---
Physician Documentation [facility] Name: Sade Galdamez Age: 60 yrs Sex: Female : 1960 Arrival Date: 10/27/2020 Time: 13:05 Bed 15 Private MD: ED Physician Erlin Salvador HPI: 10/27 15:50 This 60 yrs old Black Female presents to ER via Unassigned with complaints of Shortness cp of Breath. 15:50 The patient has shortness of breath at rest. Onset: The symptoms/episode began/occurred cp today. Duration: The symptoms are continuous, and are unchanged since they started. Associated signs and symptoms: Pertinent positives: chest pain, Pertinent negatives: productive cough, diaphoresis, fever, hemoptysis. 15:50 Severity of symptoms: in the emergency department the symptoms are unchanged despite cp home interventions. 15:50 The patient has experienced similar episodes in the past, multiple times. 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 Patient reports last hemo treatment 3 weeks ago. 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 - Social history:: Smoking status: Patient denies any tobacco usage or history of. ROS: 15:51 Constitutional: Negative for body aches, chills, fever, poor PO intake. cp 15:51 Cardiovascular: Positive for edema, Negative for chest pain, palpitations. 15:51 Respiratory: Positive for shortness of breath, at rest. Negative for cough, wheezing. 15:51 Neuro: Negative for altered mental status, headache, syncope, weakness. 15:51 All other systems are negative. Exam: 15:51 Head/Face: Normocephalic, atraumatic. cp 15:51 Constitutional: The patient appears in no acute distress, alert, awake, non-diaphoretic, non-toxic, well developed, well nourished, obese. 15:51 Chest/axilla: Inspection: normal, Palpation: is normal, no crepitus, no tenderness. 15:51 Cardiovascular: Rate: normal, Rhythm: regular, Edema: marked left lower extremity edema, JVD: is not appreciated. 15:51 Respiratory: the patient does not display signs of respiratory distress, Respirations: normal, no use of accessory muscles, no retractions, labored breathing, is not present, Breath sounds: are clear throughout, no decreased breath sounds, no stridor, no wheezing. 15:51 Neuro: Orientation: to person, place \T\ time. Mentation: is normal. 15:55 Abdomen/GI: Inspection: obese Palpation: abdomen is soft and non-tender, in all cp quadrants. 15:55 Back: pain, is absent, ROM is normal. 15:55 Skin: cellulitis, is not appreciated, no rash present. Vital Signs: 15:44 BP 196 / 82; Pulse 90; Resp 20; Temp 98.2; Pulse Ox 100% on 4 lpm NC; Weight 136.08 kg; lm7 Height 5 ft. 5 in. (165.10 cm); Pain 10/10; 20:56 BP 171 / 75; Pulse 87; Resp 18; Pulse Ox 96% ; dh4 23:45 BP 132 / 59; Pulse 94; Resp 13; Temp 98.6(O); Pulse Ox 100% on 2 lpm NC; Pain 0/10; fu 10/28 01:45 BP 135 / 82; Pulse 110; Resp 19; Pulse Ox 100% ; fu 02:15 BP 144 / 64; Pulse 97; Resp 16; Pulse Ox 96% ; fu 03:30 BP 139 / 70; Pulse 99; Resp 18; Pulse Ox 94% ; fu 04:00 BP 141 / 72; Pulse 99; Resp 13; Temp 99(O); Pulse Ox 95% on R/A; Pain 5/10; fu 10/27 15:44 Body Mass Index 49.92 (136.08 kg, 165.10 cm) lm7 MDM: 01:30 Data reviewed: vital signs, nurses notes, lab test result(s), EKG, radiologic studies, cp plain films, ultrasound. 02:13 Patient medically screened. 10/27 13:05 Order name: [facility]; Complete Time: 01:06 kdr 10/28 01:06 Interpretation: Normal except: K 2.6; CL 108; GLUC 107; CA 8.0. 10/27 13:05 Order name: Blood Culture Adult (2) kdr 10/27 13:05 Order name: C-Reactive Protein; Complete Time: : [facility] 10/28 01:06 Interpretation: Abnormal: C-REACTIVE PROT 219.00. cp 10/27 13:05 Order name: CBC with Diff; Complete Time: 02: kdr 10/28 01:07 Interpretation: Normal except: RBC 3.71; HGB 7.6; HCT 25.2; MCV 68.0; MCH 20.4; MCHC cp 30.0; PLT 362; RDW 22.3; MPV 6.6; JOE% 89.0; LYM% 3.7; NEUT A 18.7; MNA 1.5. 10/27 13:05 Order name: D-Dimer; Complete Time: : [facility] 10/28 01:07 Interpretation: Abnormal: D-DIMER 1224. cp 10/27 13:05 Order name: Ferritin; Complete Time: 01: [facility] 10/27 13:05 Order name: Flu kdr 10/27 13:05 Order name: LFT's; Complete Time: : [facility] 10/28 01:08 Interpretation: Normal except: AST 9; ALK 163; ALB 2.7; GLOB 4.0; A/G 0.7. cp 10/27 13:05 Order name: Lactate; Complete Time: : [facility] 10/27 13:05 Order name: Lipase; Complete Time: : [facility] 10/27 13:05 Order name: PT-INR; Complete Time: : [facility] 10/27 13:05 Order name: Procalcitonin; Complete Time: : [facility] 10/28 01:22 Interpretation: Abnormal: Procalcitonin 0.26. cp 10/27 13:05 Order name: Ptt, Activated; Complete Time: : [facility] 10/27 13:05 Order name: Strep; Complete Time: : [facility] 10/27 13:05 Order name: Troponin (emerg Dept Use Only); Complete Time: : [facility] 10/28 01:07 Interpretation: TROPED < 0.02; Reviewed. cp 10/27 13:05 Order name: Urine Microscopic Only; Complete Time: : kdr 10/28 01:22 Interpretation: Normal except: UWBC 5-10; URBC 5-10; UBACT 20-50; SQEPI 10-20. cp 10/27 13:05 Order name: CXR XRAY; Complete Time: 19:23 kdr 10/27 19:23 Interpretation: Report review. 10/27 15:53 Order name: US Extremity Venous W Compression Ovi; Complete Time: 19:23 10/28 00:33 Order name: Urine Dipstick-Ancillary; Complete Time: 01:06 EDTX 10/28 00:35 Order name: Urine Dipstick-Ancillary EDTX 10/28 00:39 Order name: Manual Differential; Complete Time: 02:01 EDTX 10/28 00:45 Order name: Throat Culture EDTX 10/28 01:09 Order name: COVID-19/FLU A+B; Complete Time: 01:22 EDTX 10/28 01:23 Interpretation: Reviewed. 10/28 01:16 Order name: Urine Culture EDTX 10/28 01:32 Order name: CT Chest For PE Angio 10/27 13:05 Order name: EKG; Complete Time: 13:06 kdr 10/27 13:05 Order name: Cardiac monitoring; Complete Time: 23:39 kdr 10/27 13:05 Order name: Droplet/Contact Precautions; Complete Time: 01:47 kdr 10/27 13:05 Order name: EKG - Nurse/Tech; Complete Time: 23:41 kdr 10/27 13:05 Order name: IV Start; Complete Time: 01:47 kdr 10/27 13:05 Order name: Labs collected and sent; Complete Time: 01:47 kdr 10/27 13:05 Order name: O2 Per Protocol; Complete Time: 23:41 kdr 10/27 13:05 Order name: O2 Sat Monitoring; Complete Time: 23:41 kdr 10/27 13:05 Order name: Urine Dipstick-Ancillary (obtain specimen); Complete Time: 05:14 kdr Administered Medications: 10/27 20:48 Drug: Xopenex (levalbuterol) (3) 1.25 mg Route: Inhalation; bb 21:40 Drug: morphine 4 mg Route: IM; Site: right deltoid; bb 10/28 07:45 Follow up: Response: Pain is decreased bp 10/27 21:40 Drug: Zofran (Ondansetron) 4 mg Route: PO; bb 10/28 07:46 Follow up: Response: No adverse reaction bp 01:59 Not Given (Physician Discretion): Cefepime 2 grams IVPB at 200 ml/hr once over 30 mins; cp (mix in NS 100 mL) 01:59 Not Given (Physician Discretion): vancoMYCIN 1.5 grams IVPB at calculated rate once cp 02:17 Drug: SOLU-Medrol (methylPrednisoLONE) 125 mg Route: IVP; Site: right antecubital; fu 03:17 Follow up: Response: No adverse reaction fu 02:17 Drug: Potassium Effervescent Tablet 50 mEq Route: PO; fu 03:17 Follow up: Response: No adverse reaction fu 02:18 Drug: Benadryl (diphenhydrAMINE) 50 mg Route: IVP; Site: right antecubital; fu 03:18 Follow up: Response: No adverse reaction fu 02:18 Drug: Pepcid (famotidine) 20 mg Route: IVP; Site: right antecubital; fu 03:18 Follow up: Response: No adverse reaction fu 02:21 Drug: vancoMYCIN 1.5 grams Route: IVPB; Rate: calculated rate; Site: right antecubital; fu 06:28 Follow up: Response: No adverse reaction fu 07:45 Follow up: IV Status: Completed infusion; IV Intake: 250ml bp 02:22 Drug: Rocephin - (cefTRIAXone) 2 grams Route: IVPB; Infused Over: 30 mins; Site: right fu antecubital; 04:30 Follow up: Response: No adverse reaction fu 07:45 Follow up: IV Status: Completed infusion; IV Intake: 100ml bp 03:51 Drug: Dilaudid (HYDROmorphone) 0.5 mg Route: IM; Site: right deltoid; fu 04:21 Follow up: Response: Pain is decreased fu Disposition: 03:30 Chart complete. cp Disposition Summary: 10/28/20 03:22 Transfer Ordered Transfer Location: Other Acute Care Facility cp Reason: Higher level of care cp Condition: Stable(10/28/20 03:22) cp Problem: new(10/28/20 03:22) cp Symptoms: have improved(10/28/20 03:22) cp Accepting Physician: DR Solorio(10/28/20 07:46) ss Diagnosis - Chest pain, unspecified(10/28/20 03:22) cp - Hypokalemia cp - UTI/ Urinary tract infection, site not specified(10/28/20 03:22) cp - Shortness of breath cp Forms: - Medication Reconciliation Form cp - SBAR form cp Addendum: 10/30/2020 07:09 Co-signature as Attending Physician, Erlin Salvador MD I agree with the assessment and k dr plan of care. Signatures: Dispatcher [employer] [facility] Erlin Salvador MD MD kdr Yany Gonzalez RN RN bb Gisela Prather RN RN ss Kati Bautista lm7 Jean Carlos Kenyon PA PA cp Danilo Justice, RN RN fu Jarad Ahn RN bp Corrections: (The following items were deleted from the chart) 10/27 15:52 15:51 Immunization history: Client reports receiving the 2nd dose of the Covid vaccine, lm7 lm7 10/28 00:16 10/27 23:40 CORONAVIRUS+BRZ ordered. [facility] 10/28 03:21 02:13 Inpatient Admission cp cp 03:21 02:13 Alejandro Mayo cp cp 03:21 02:13 Telemetry/MedSurg (Inpatient) cp cp 03:21 02:13 Stable cp cp 03:21 02:13 new cp cp 03:21 02:13 have improved cp cp 03:21 02:13 Standard cp cp 03:21 02:13 cp cp 03:21 02:13 UTI/ Urinary tract infection, site not specified cp cp 03:21 02:13 Chest pain, unspecified cp cp 03:32 10/27 15:50 Associated signs and symptoms: Pertinent negatives: chest pain, productive cp cough, diaphoresis, fever, cp 10/28 03:56 03:22 Doctor cp cp 06:30 10/27 13:05 Srivastava ordered. kdr 10/28 07:46 03:56 DR Solorio cp ss
--- NOTE | 2020-10-28 02:14 | ER ---
Nurse's Notes [facility] Name: Sdae Galdamez Age: 60 yrs Sex: Female : 1960 Arrival Date: 10/27/2020 Time: 13:05 Bed 15 Private MD: Diagnosis: Chest pain, unspecified;Hypokalemia;UTI/ Urinary tract infection, site not specified;Shortness of breath Presentation: 10/27 15:44 Chief complaint: Patient states: Pt reports SOB, currently on chemotherapy for cancer. lm7 SOB started today. Denies all other complaints. Pt reports fall in April, swelling to RLE since fall. Coronavirus screen: Client denies travel out of the [place] in the last 14 days. At this time, the client does not indicate any symptoms associated with coronavirus-19. Ebola Screen: Patient negative for fever greater than or equal to 101.5 degrees Fahrenheit, and additional compatible Ebola Virus Disease symptoms Patient denies exposure to infectious person. Patient denies travel to an Ebola-affected area in the 21 days before illness onset. Initial Sepsis Screen: Does the patient meet any 2 criteria? No. Patient's initial sepsis screen is negative. Does the patient have a suspected source of infection? No. Patient's initial sepsis screen is negative. Risk Assessment: Do you want to hurt yourself or someone else? Patient reports no desire to harm self or others. Onset of symptoms is unknown. 15:44 Method Of Arrival: EMS: [facility] 7 15:44 Acuity: ABDIRIZAK 3 lm7 Triage Assessment: 15:51 General: Appears. lm7 15:51 General: Appears uncomfortable, Behavior is calm, cooperative. Pain: Complains of pain lm7 in L thigh and leg. Cardiovascular: No deficits noted. Respiratory: Reports shortness of breath. 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 - Social history:: Smoking status: Patient denies any tobacco usage or history of. Screenin:53 Abuse screen: Denies threats or abuse. Denies injuries from another. Nutritional lm7 screening: No deficits noted. Tuberculosis screening: No symptoms or risk factors identified. Assessment: 15:53 Neuro: No deficits noted. Respiratory: Airway is patent Respiratory effort is even, lm7 unlabored, Respiratory pattern is regular, symmetrical, Breath sounds are clear bilaterally. the patient has mild shortness of breath. Derm: No deficits noted. 18:31 Reassessment: lab attempted to obtain labs from [facility], but patient refused because she ss wishes to have her port o cath obtained. 10/28 00:04 Reassessment: Patient and/or family updated on plan of care and expected duration. Pain fu level reassessed. Patient is alert, oriented x 3, equal unlabored respirations, skin warm/dry/pink. O2 at 2L NC. 00:05 General: Appears in no apparent distress. Pain: Complains of pain in left leg Pain fu radiates to left hip Pain currently is 10 out of 10 on a pain scale. Pain began 1500 yesterday Aggravated by movement. Respiratory: Reports shortness of breath on exertion Airway is patent Respiratory effort is even, unlabored, Respiratory pattern is regular, symmetrical, Breath sounds are clear bilaterally. 01:04 Reassessment: D-dimer 1224, K+ 3.6, WBC 21, Jean Carlos DI Kenyon notified. fu 02:22 Reassessment: Patient complaining of pain at IV site. IV removed. fu 05:06 Reassessment: Report called to Cuong Johnson RN at [facility]. Questions were answered. fu 06:33 Reassessment: Patient for transfer to [facility], awaiting for ambulance. fu 07:00 Reassessment: RECD REPORT FROM DANILO ROSEN. 60YO BF PW SOB. TRANSFER TO [facility] bp PENDING. 07:40 Reassessment: EMS AT [facility]/S, PT JOHN. bp Vital Signs: 10/27 15:44 BP 196 / 82; Pulse 90; Resp 20; Temp 98.2; Pulse Ox 100% on 4 lpm NC; Weight 136.08 kg; lm7 Height 5 ft. 5 in. (165.10 cm); Pain 10/10; 20:56 BP 171 / 75; Pulse 87; Resp 18; Pulse Ox 96% ; dh4 23:45 BP 132 / 59; Pulse 94; Resp 13; Temp 98.6(O); Pulse Ox 100% on 2 lpm NC; Pain 0/10; fu 14 01:45 BP 135 / 82; Pulse 110; Resp 19; Pulse Ox 100% ; fu 02:15 BP 144 / 64; Pulse 97; Resp 16; Pulse Ox 96% ; fu 03:30 BP 139 / 70; Pulse 99; Resp 18; Pulse Ox 94% ; fu 04:00 BP 141 / 72; Pulse 99; Resp 13; Temp 99(O); Pulse Ox 95% on R/A; Pain 5/10; fu 10/27 15:44 Body Mass Index 49.92 (136.08 kg, 165.10 cm) lm7 ED Course: 10/27 13:05 Patient arrived in ED. kdr 13:05 Erlin Salvador MD is Attending Physician. kdr 13:57 CXR XRAY In Process Unspecified. EDMS 15:49 Jean Carlos Kenyon PA is PHCP. cp 15:51 Triage completed. lm7 15:51 Arm band placed on right wrist. lm7 15:53 Patient has correct armband on for positive identification. lm7 17:43 US Extremity Venous W Compression Ovi In Process Unspecified. EDMS 22:40 Initial lab(s) drawn, by wv, sent to lab. Urine collected: clean catch specimen, clear, bb COVID swab sent to lab. Flu and/or RSV swab sent to lab. Strep swab sent to lab. Inserted saline lock: 18 gauge in right antecubital area, using aseptic technique. Blood collected. 23:36 Danilo Justice, RN is Primary Nurse. fu 10/28 02:13 Alejandro Mayo DO is Hospitalizing Provider. cp 03:30 Initiated transfer at [facility] with Lora Lim. Stated she would reach out to tt3 the physician and call back. 03:53 Lora Lim with [facility] called back with Admin approval. The accepting tt3 physician is Dr. Solorio. The pt is going to [facility]. Nurse to call report to [phone]. 04:46 Accessed peripheral vein via ultrasound, utilizing dynamic ultrasound technique using bb 20 g 10 cm midline to right upper arm, good blood return and flushes easily. 05:13 Urine Dipstick-Ancillary Sent. fu 05:33 CT Chest For PE Angio In Process Unspecified. EDMS 07:44 No provider procedures requiring assistance completed. Patient transferred, IV remains bp in place. Administered Medications: 10/27 20:48 Drug: Xopenex (levalbuterol) (3) 1.25 mg Route: Inhalation; 21:40 Drug: morphine 4 mg Route: IM; Site: right deltoid; bb 10/28 07:45 Follow up: Response: Pain is decreased bp 10/27 21:40 Drug: Zofran (Ondansetron) 4 mg Route: PO; bb 10/28 07:46 Follow up: Response: No adverse reaction bp 01:59 Not Given (Physician Discretion): Cefepime 2 grams IVPB at 200 ml/hr once over 30 mins; cp (mix in NS 100 mL) 01:59 Not Given (Physician Discretion): vancoMYCIN 1.5 grams IVPB at calculated rate once cp 02:17 Drug: SOLU-Medrol (methylPrednisoLONE) 125 mg Route: IVP; Site: right antecubital; fu 03:17 Follow up: Response: No adverse reaction fu 02:17 Drug: Potassium Effervescent Tablet 50 mEq Route: PO; fu 03:17 Follow up: Response: No adverse reaction fu 02:18 Drug: Benadryl (diphenhydrAMINE) 50 mg Route: IVP; Site: right antecubital; fu 03:18 Follow up: Response: No adverse reaction fu 02:18 Drug: Pepcid (famotidine) 20 mg Route: IVP; Site: right antecubital; fu 03:18 Follow up: Response: No adverse reaction fu 02:21 Drug: vancoMYCIN 1.5 grams Route: IVPB; Rate: calculated rate; Site: right antecubital; fu 06:28 Follow up: Response: No adverse reaction fu 07:45 Follow up: IV Status: Completed infusion; IV Intake: 250ml bp 02:22 Drug: Rocephin - (cefTRIAXone) 2 grams Route: IVPB; Infused Over: 30 mins; Site: right fu antecubital; 04:30 Follow up: Response: No adverse reaction fu 07:45 Follow up: IV Status: Completed infusion; IV Intake: 100ml bp 03:51 Drug: Dilaudid (HYDROmorphone) 0.5 mg Route: IM; Site: right deltoid; fu 04:21 Follow up: Response: Pain is decreased fu Intake: 07:45 IV: 250ml; Total: 250ml. bp 07:45 IV: 100ml; Total: 350ml. bp Outcome: 02:13 Decision to Hospitalize by Provider. cp 03:22 ER care complete, transfer ordered by . cp 07:46 Patient left the ED. ss Signatures: Dispatcher [employer] EDMS Erlin Salvador MD MD kdr Ballard, Brenda RN RN Gisela Jones RN RN Kati Bautista lm7 Jean Carlos Kenyon PA PA cp Umadhay, Felix, RN Jarad Chen RN RN bp Huhn, Donald 4 Dany Vargas tt3 Corrections: (The following items were deleted from the chart) 10/27 15:52 15:51 Immunization history: Client reports receiving the 2nd dose of the Covid vaccine, lm7 lm7 10/28 04:20 03:14 Initiated transfer at [facility] with Lora Lim. Stated she would reach tt3 out to the physician and call back. tt3
[2020-10-28] MEDS ORDERED: DIPHENHYDRAMINE 50 MG/ML VIAL ONE (02:15)
[2020-10-28] MEDS ORDERED: VANCOMYCIN 1 GM/VIAL ONE (02:15)
[2020-10-28] MEDS ORDERED: POTASSIUM 25 MEQ EFFERV TAB ONE (02:15)
[2020-10-28] MEDS ORDERED: FAMOTIDINE 20 MG/2 ML VIAL IV ONE (02:16)
[2020-10-28] MEDS ORDERED: NA CHLORIDE 0.9% 500 ML ONE (02:17)
[2020-10-28] MEDS ORDERED: HYDROMORPHONE HCL 0.5 MG/0.5 ML INJ ONE (04:08)
[2020-10-28 08:12] VITALS: BP 141/72; TEMP 99; O2SAT 95
--- NOTE | 2020-10-28 18:25 | RAD REPORT ---
EXAM DESCRIPTION: CT - Chest For Pe Angio - 10/28/2020 6:31 am CLINICAL HISTORY: The patient is 60 years old and is Female; Chest pain;SOB TECHNIQUE: Axial computed tomographic angiography images of the chest with intravenous contrast. S agittal and coronal reformatted images were created and reviewed. This CT exam was performed using one or more of the following dose reduction techniques: automated exposure control, adjustment of t he mA and/or kV according to patient size, and/or use of iterative reconstruction technique. MIP re constructed images were created and reviewed. COMPARISON: CTA aorta for dissection 08/20/20. FINDINGS: Pulmonary arteries: Main pulmonary artery is dilated which can be seen with pulmonary hy pertension. No pulmonary embolism. Aorta: No acute findings. No thoracic aortic aneurysm. Lungs: Bibasilar atelectasis. No mass. Pleural space: Unremarkable. No significant effusion. No pneumothorax. Heart: The heart appears enlarged. No significant pericardial effusion. No evidence of RV dysfunction. Bones/joints: No acute fracture. No dislocation. Soft tissues: Right breast implant. Clips in the right axilla. Lymph nodes: Unremarkable. No enlarged lymph nodes. IMPRESSION: No acute finding. No evidence of pulmonary embolism. Electronically signed by: Shamar Ramirez MD 10/28/2020 6:02 AM CDT Due to temporary technical issues with the PACS/Fluency reporting system, reports are being signed by the in house radiologists without review as a courtesy to insure prompt reporting. The interpreting radiologist is fully responsible for the content of the report.
== END 2020-10-28 07:46 ==
LOC: ER 12:27
DX: E87.6 Hypokalemia (principal); N39.0 Urinary tract infection, site not specified; R06.02 Shortness of breath; I10 Essential (primary) hypertension; Z85.3 Personal history of malignant neoplasm of breast; Z90.13 Acquired absence of bilateral breasts and nipples; Z20.822 Contact with and (suspected) exposure to COVID-19; Z91.048 Other nonmedicinal substance allergy status
CPT/HCPCS: 96365; 93005; 87040 ×2; 87070; 87088; 85025; 87086; 80048; 36415; 85610; 85379; 80076; 87081; 83605; 85730; 81003; 81015; 84484; 82728; 83690; 84145; 0240U; 86140; 71275; 71045; 93970; 96375; 96372; 99285; 96366; Q9967; J1200; J3370; J1170; J7040; J2930

== ENCOUNTER 2020-11-16 07:15 | Day surgery (SDC) | payer OTHER ==
[2020-11-16] MEDS ORDERED: NA CHLORIDE 0.9% 250 ML ONE ×2 (08:09→10:50)
[2020-11-16 10:24] VITALS: BMI 49.1
[2020-11-16 11:51] VITALS: O2SAT 94
[2020-11-16 16:16] LABS: Hematocrit 27.7 % (36.0-45.0)
[2020-11-16 18:06] VITALS: BP 146/75; TEMP 97.1
== END 2020-11-16 16:10 | disposition home or self-care (01) ==
LOC: DS 07:15
PROVIDERS: ATTEND Internal Medicine Hematology & Oncology
DX: D64.81 Anemia due to antineoplastic chemotherapy (principal); C49.9 Malignant neoplasm of connective and soft tissue, unspecified
CPT/HCPCS: 36415; 86900; 86850; 86901; 85018; 85014; 36430; P9016 ×2; J7050 ×2

== ENCOUNTER 2020-12-06 20:15 | Inpatient (IN) | payer OTHER ==
[2020-12-06 21:29] LABS: Protime INR 1.54
[2020-12-06 21:30] LABS: Absolute Lymphocytes (CBC) 0.5 K/uL (0.7-4.9); Basophils % 0.2 % (0-1.3); Lymphocytes % 4.1 % (15.3-44.8); RBC Red Blood Cell Count 3.01 M/uL (3.86-4.86)
--- NOTE | 2020-12-06 21:31 | RAD REPORT ---
EXAM DESCRIPTION: CT - Thorax Wo Con - 12/06/2020 9:23 pm CLINICAL HISTORY: PAIN COMPARISON: Chest For Pe Angio dated 10/28/2020; Chest Single View dated 10/27/2020 FINDINGS: Chest Wall: Right breast prosthesis. Left mastectomy. Left subclavian approach PICC. Right upper chest wall Port-A-Cath has been removed. Lungs: Atelectasis as a result of the pleural effusions. Otherwise, no acute findings are seen. Pleura: Small bilateral pleural effusions. Mediastinum/juan: No pathologic lymphadenopathy. Pulmonary arteries/Aorta: No filling defect identified. No aortic aneurysm. Heart: Small pericardial effusion. Normal heart size. Upper abdomen: No acute abnormality. Bones: No acute abnormality. All CT scans are performed using dose optimization technique as appropriate and may include automated exposure control or mA/KV adjustment according to patient size. IMPRESSION: Small pleural effusions which are new from prior. No evidence of pneumonia or edema iden tified.
[2020-12-06] MEDS ORDERED: ONDANSETRON 4 MG/2 ML VIAL ONE (21:37)
[2020-12-06] MEDS ORDERED: NA CHLORIDE 0.9% 1,000 ML ONE (21:37)
[2020-12-06] MEDS ORDERED: FAMOTIDINE 20 MG/2 ML VIAL IV ONE (21:37)
[2020-12-06] MEDS ORDERED: Levofloxacin500mg IV 500 MG/100 ML BAG IV ONE (21:37)
[2020-12-06] MEDS ORDERED: MORPHINE 2 MG/ML SYR ONE ×2 (21:37→22:27)
--- NOTE | 2020-12-06 22:07 | RAD REPORT ---
EXAM DESCRIPTION: RAD - Chest Single View - 12/06/2020 10:01 pm CLINICAL HISTORY: CHEST PAIN COMPARISON: No comparisons FINDINGS: Lines: Left subclavian approach PICC with tip overlying the superior cavoatrial junction. The right IJ approach Port-A-Cath has been removed. Lungs: Prominence of the pulmonary vasculature. Pleural: Small bilateral effusions. Cardiac: Cardiomegaly. Bones: No acute fractures. Other: IMPRESSION: Vascular congestion with small bilateral effusions .
--- NOTE | 2020-12-06 22:11 | EDPHYS ---
Physician Documentation [facility] Name: Sade Galdamez Age: 60 yrs Sex: Female : 1960 Arrival Date: 12/06/2020 Time: 20:32 Bed 16 Private MD: ED Physician Jean Carlos Pinzon HPI: 12/06 20:57 This 60 yrs old Black Female presents to ER via EMS with complaints of cp and sob at [facility] 4pm. 20:57 The patient has shortness of breath at rest, with light activity. Onset: The [facility] symptoms/episode began/occurred today. Duration: The symptoms are continuous, and are steadily getting worse. The patient's shortness of breath is aggravated by coughing, talking. The patient or guardian reports chest pain that is located primarily in the substernal area. Onset: just prior to arrival. cp and sob x 5 hours. The pain does not radiate. Historical: - Allergies: 20:45 Iodine; jb4 - Home Meds: 20:45 Morphine Oral [Active]; Hydromorphone Oral [Active]; jb4 - PMHx: 20:45 breast cancer; chemotherapy; Hypertension; Tumor to groin area; jb4 - PSHx: 20:45 ovi mastectomy; hysterectomy; jb4 - Immunization history:: Adult Immunizations up to date. - Family history:: not pertinent. ROS: 20:57 Constitutional: Negative for fever, chills, and weight loss, Eyes: Negative for injury, ruddy pain, redness, and discharge, ENT: Negative for injury, pain, and discharge, Neck: Negative for injury, pain, and swelling, Abdomen/GI: Negative for abdominal pain, nausea, vomiting, diarrhea, and constipation, Back: Negative for injury and pain, : Negative for injury, bleeding, discharge, and swelling, Skin: Negative for injury, rash, and discoloration, Neuro: Negative for headache, weakness, numbness, tingling, and seizure, Psych: Negative for depression, anxiety, suicide ideation, homicidal ideation, and hallucinations, Allergy/Immunology: Negative for hives, rash, and allergies, Endocrine: Negative for neck swelling, polydipsia, polyuria, polyphagia, and marked weight changes, Hematologic/Lymphatic: Negative for swollen nodes, abnormal bleeding, and unusual bruising. 20:57 Cardiovascular: Positive for chest pain, of the right breast. 20:57 Respiratory: Positive for shortness of breath. Exam: 20:57 Constitutional: This is a well developed, well nourished patient who is awake, alert, ruddy and in no acute distress. Head/Face: Normocephalic, atraumatic. Eyes: Pupils equal round and reactive to light, extra-ocular motions intact. Lids and lashes normal. Conjunctiva and sclera are non-icteric and not injected. Cornea within normal limits. Periorbital areas with no swelling, redness, or edema. ENT: Nares patent. No nasal discharge, no septal abnormalities noted. Tympanic membranes are normal and external auditory canals are clear. Oropharynx with no redness, swelling, or masses, exudates, or evidence of obstruction, uvula midline. Mucous membranes moist. Neck: Trachea midline, no thyromegaly or masses palpated, and no cervical lymphadenopathy. Supple, full range of motion without nuchal rigidity, or vertebral point tenderness. No Meningismus. Chest/axilla: Normal chest wall appearance and motion. Nontender with no deformity. No lesions are appreciated. Cardiovascular: Regular rate and rhythm with a normal S1 and S2. No gallops, murmurs, or rubs. Normal PMI, no JVD. No pulse deficits. Respiratory: Lungs have equal breath sounds bilaterally, clear to auscultation and percussion. No rales, rhonchi or wheezes noted. No increased work of breathing, no retractions or nasal flaring. Abdomen/GI: Soft, non-tender, with normal bowel sounds. No distension or tympany. No guarding or rebound. No evidence of tenderness throughout. Back: No spinal tenderness. No costovertebral tenderness. Full range of motion. Skin: Warm, dry with normal turgor. Normal color with no rashes, no lesions, and no evidence of cellulitis. Neuro: Awake and alert, GCS 15, oriented to person, place, time, and situation. Cranial nerves II-XII grossly intact. Motor strength 5/5 in all extremities. Sensory grossly intact. Cerebellar exam normal. Normal gait. Psych: Awake, alert, with orientation to person, place and time. Behavior, mood, and affect are within normal limits. 20:57 Musculoskeletal/extremity: ROM: limited active range of motion, limited passive range of motion, limited active range of motion due to pain, limited passive range of motion due to pain, in the left leg, Circulation is intact in all extremities. Sensation intact. Compartment Syndrome exam of affected extremity: is normal. DVT Exam: negative Homans' sign noted on exam, no appreciated bluish discoloration, no erythema, no increased warmth, pain, swelling, tenderness. 22:11 ECG was reviewed by the Attending Physician. [facility] Vital Signs: 20:34 BP 136 / 73; Pulse 100; Resp 24; Temp 99.5(O); Pulse Ox 80% on R/A; Weight 136.08 kg jb4 (R); Height 5 ft. 5 in. (165.10 cm) (R); Pain 10/10; 22:00 BP 147 / 73; Pulse 96; Resp 20; Pulse Ox 98% on 5 lpm NC; jb4 23:00 BP 133 / 71; Pulse 69; Resp 13; Pulse Ox 95% on 2 lpm NC; 4 12/07 00:00 BP 138 / 67; Pulse 102; Resp 14; Pulse Ox 98% on 2 lpm NC; jb4 01:00 BP 132 / 73; Pulse 107; Resp 22; Pulse Ox 98% on 2 lpm NC; jb4 02:00 BP 126 / 76; Pulse 104; Resp 15; Pulse Ox 98% on 2 lpm NC; 4 12/06 20:34 Body Mass Index 49.92 (136.08 kg, 165.10 cm) jb4 MDM: 12/06 20:33 Patient medically screened. ruddy 21:02 Differential diagnosis: Anemia asthma, Bronchitis CHF exacerbation, abnormal EKG, ruddy anxiety, hiatal hernia, pleurisy, pneumothorax, pulmonary embolus, stable angina, unstable angina, pneumonia, pulmonary edema, Pulmonary Embolism reactive airway disease. Antibiotic administration: Levaquin given. Differential Diagnosis sepsis. HEART Score: History: Moderately Suspicious (1), ECG: Non specific repolarization disturbance / LBTB / PM (1), Age: > 45 and < 65 years (1), Risk Factors: > or = 3 Risk factors for atherosclerotic disease (2), [Hypercholesterolemia] [+ Family HX] [Obesity] Troponin: < or = 1 x Normal Limit (0). The patient was given aspirin in the Emergency Department. The patient's Wells Deep Vein Thrombosis Score was calculated as follows: Total Score: 0. This patient was found to be at low risk for a deep vein thrombosis by using the Well's assessment criteria Total Score: 0-2 Pts- Low Risk. The patient's pulmonary embolism risk score was calculated as follows: Total Score: 0-2 points. This patient was found to be at low risk for a pulmonary embolism by using the Well's assessment criteria Total Score: 0-2 points. This patient was found to be at low risk for a pulmonary embolism by using the Well's assessment criteria. GUILHERME Risk Score: 1 - Three or more CAD risk factors, TOTAL SCORE = 1. Immunization status: Influenza vaccine:. Data reviewed: vital signs, nurses notes, lab test result(s), EKG, radiologic studies, CT scan, plain films. Data interpreted: patient monitor: rate is 100 beats/min, rhythm is regular, Pulse oximetry: on room air is 80 %. Test interpretation: by ED physician or midlevel provider: ECG, plain radiologic studies. 12/06 20:47 Order name: Basic Metabolic Panel [facility] 12/06 20:47 Order name: CBC with Diff; Complete Time: 23:35 [facility] 12/06 20:47 Order name: LFT's [facility] 12/06 20:47 Order name: Magnesium [facility] 12/06 20:47 Order name: NT PRO-BNP [facility] 12/06 20:47 Order name: PT-INR; Complete Time: 22:06 [facility] 12/06 20:47 Order name: Troponin (emerg Dept Use Only) [facility] 12/06 20:57 Order name: Blood Culture Adult (2) [facility] 12/06 20:57 Order name: Lactate; Complete Time: 22:08 [facility] 12/06 22:07 Order name: Type And Screen [facility] 12/06 22:21 Order name: CBC Smear Scan; Complete Time: 23:35 [facility] 12/06 23:37 Order name: Phosphorus [facility] 12/06 23:38 Order name: Packed RBC Leukored [facility] 12/06 20:47 Order name: XRAY Chest (1 view); Complete Time: 22:12 [facility] 12/06 20:57 Order name: CT Chest Wo Con; Complete Time: 22:06 [facility] 12/07 00:14 Order name: SARS-COV-2 RT PCR [facility] 12/07 00:42 Order name: Phosphorus [facility] 12/06 20:47 Order name: EKG; Complete Time: 20:47 [facility] 12/06 20:47 Order name: Cardiac monitoring; Complete Time: 21:29 [facility] 12/06 20:47 Order name: EKG - Nurse/Tech; Complete Time: 20:47 [facility] 12/06 20:47 Order name: IV Saline Lock; Complete Time: 20:47 [facility] 12/06 20:47 Order name: Labs collected and sent; Complete Time: 21:29 [facility] 12/06 20:47 Order name: O2 Per Protocol; Complete Time: 20:47 [facility] 12/06 20:47 Order name: O2 Sat Monitoring; Complete Time: 20:47 12/07 00:09 Order name: CONS Physician Consult EDMS EC:11 Rate is 100 beats/min. Rhythm is regular. QRS [place] is Normal. MO interval is normal. ruddy QRS interval is normal. QT interval is normal. No Q waves. T waves are Normal. ST Segment is depressed in leads I, aVL, V5, V6. Clinical impression: NSR w/ Non-specific ST/T Changes. Interpreted by me. Reviewed by me. Administered Medications: 21:35 Drug: Pepcid (famotidine) 20 mg Route: IVP; Site: PICC; ms4 22:00 Follow up: Response: No adverse reaction jb4 21:37 Drug: Zofran (Ondansetron) 4 mg Route: IVP; Site: PICC; ms4 22:00 Follow up: Response: No adverse reaction 4 21:39 Drug: NS 0.9% 1000 ml Route: IV; Rate: 125 ml/hr; Site: PICC; in4 12/07 02:24 Follow up: IV Status: Infusion continued upon admission [facility] 12/06 21:39 Drug: morphine 2 mg Route: IVP; Site: PICC; ms4 22:00 Drug: morphine 2 mg Route: IVP; Site: PICC; ms4 22:30 Follow up: Response: No adverse reaction; Marked relief of symptoms; RASS: Alert and jb4 Calm (0) 22:55 Drug: Dilaudid (HYDROmorphone) 1 mg Route: IVP; Site: PICC; jb4 23:30 Follow up: Response: No adverse reaction; Pain is decreased; RASS: Alert and Calm (0) jb4 22:59 Drug: levofloxacin 500 mg Volume: 100 ml; Route: IVPB; Infused Over: 60 mins; Site: [facility]; 12/07 00:00 Follow up: Response: No adverse reaction; IV Status: Completed infusion; IV Intake: jb4 100ml 00:14 Drug: Potassium Effervescent Tablet 50 mEq Route: PO; jb4 01:17 Follow up: Response: No adverse reaction jb4 00:14 Drug: Potassium Chloride 20 mEq Route: IV; Rate: per protocol; Site: [facility]; jb4 01:17 Follow up: Response: No adverse reaction; IV Status: Completed infusion; IV Intake: jb4 100ml 00:14 Drug: Magnesium Sulfate 1 grams Route: IVPB; Infused Over: 1 hrs; Site: [facility]; jb4 01:17 Follow up: Response: No adverse reaction; IV Status: Completed infusion; IV Intake: jb4 100ml 01:16 Drug: Potassium Effervescent Tablet 50 mEq Route: PO; jb4 02:21 Follow up: Response: No adverse reaction jb4 Disposition Summary: 12/06/20 22:11 Hospitalization Ordered Hospitalization Status: Inpatient Admission ruddy Provider: Hayder Hastings cha Location: Telemetry/MedSurg (Inpatient) ruddy Condition: Fair ruddy Problem: new ruddy Symptoms: have improved ruddy Bed/Room Type: Standard ruddy Room Assignment: 217(12/07/20 02:16) tl1 Diagnosis - Hypoxemia ruddy - Chest pain, unspecified ruddy - Obesity, unspecified ruddy - Pleural condition, unspecified ruddy - Hypokalemia ruddy - Hypomagnesemia ruddy Forms: - Medication Reconciliation Form ruddy - SBAR form ruddy Signatures: Dispatcher [employer] EDJean Carlos Boston MD MD cha Lasagna, Tonya, RN RN tl1 Macho Avitia, RN RN jb4 [place] Love RN RN ms4 Corrections: (The following items were deleted from the chart) 12/06 22:18 20:57 CORONAVIRUS+MR.LAB.BRZ ordered. EDMS EDMS 22:48 22:14 Extrem Venous W Compression Ovi+US.RAD.BRZ ordered. EDMS EDMS 22:58 22:48 Extremity Venous Uni Ltd ordered. EDMS EDMS 12/07 02:16 12/06 22:11 ruddy tl1 12/07 02:56 12/06 22:12 Blood Transfusion Consent ordered. ruddy jb4
--- NOTE | 2020-12-06 22:11 | ER ---
Nurse's Notes [facility] Name: Sade Galdamez Age: 60 yrs Sex: Female : 1960 Arrival Date: 12/06/2020 Time: 20:32 Bed 16 Private MD: Diagnosis: Hypoxemia;Chest pain, unspecified;Obesity, unspecified;Pleural condition, unspecified;Hypokalemia;Hypomagnesemia Presentation: 12/06 20:34 Chief complaint: EMS states: Pt reports non radiating mid sternal Chest pain that is jb4 10/10 and Shortness of breath. Satting 82% on RA. Placed on 5L NC. Sats increased to 100%. Pt has history of breast cancer and BELLA mastectomies. Otherwise normal VS. Coronavirus screen: Client presents with at least one sign or symptom that may indicate coronavirus-19. Standard/surgical mask placed on the client. Provider contacted for isolation considerations. Ebola Screen: No symptoms or risks identified at this time. Initial Sepsis Screen: Does the patient meet any 2 criteria? RR > 20 per min. HR > 90 bpm. Yes Does the patient have a suspected source of infection? No. Patient's initial sepsis screen is negative. Risk Assessment: Do you want to hurt yourself or someone else? Patient reports no desire to harm self or others. Onset of symptoms was December 06, 2020. Transition of care: patient was not received from another setting of care. 20:34 Method Of Arrival: EMS: [facility] jb4 20:34 Acuity: ABDIRIZAK 2 jb4 Historical: - Allergies: 20:45 Iodine; jb4 - Home Meds: 20:45 Morphine Oral [Active]; Hydromorphone Oral [Active]; jb4 - PMHx: 20:45 breast cancer; chemotherapy; Hypertension; Tumor to groin area; jb4 - PSHx: 20:45 bella mastectomy; hysterectomy; jb4 - Immunization history:: Adult Immunizations up to date. - Family history:: not pertinent. Screenin:35 Abuse screen: Denies threats or abuse. Nutritional screening: No deficits noted. jb4 Tuberculosis screening: No symptoms or risk factors identified. Fall Risk IV access (20 points). Ambulatory Aid- None/Bed Rest/Nurse Assist (0 pts). Gait- Weak (10 pts.). Total Schaeffer Fall Scale indicates Low Risk Score (25-44 pts). Fall prevention measures have been instituted. Side Rails Up X 2 Placed close to Nursing Station Frequent Obs/Assesments occuring Family Present and informed to notify staff if they need to leave bedside As available Patient and Family Educated on Fall Prevention Program and strategies. Assessment: 20:35 General: Appears in no apparent distress. uncomfortable, Behavior is calm, cooperative. jb4 Pain: Complains of pain in chest Pain does not radiate. Pain currently is 10 out of 10 on a pain scale. Quality of pain is described as stabbing. Neuro: Level of Consciousness is awake, alert, obeys commands, Oriented to person, place, time, situation. Cardiovascular: Patient's skin is warm and dry. Respiratory: Airway is patent Respiratory effort is even, unlabored, Respiratory pattern is regular, symmetrical. GI: No signs and/or symptoms were reported involving the gastrointestinal system. : No signs and/or symptoms were reported regarding the genitourinary system. EENT: No signs and/or symptoms were reported regarding the EENT system. Derm: Skin is intact, Skin is dry, Skin is pale, Skin temperature is warm. Musculoskeletal: Circulation, motion, and sensation intact. 20:45 Reassessment: PICC line dressing changed. jb4 21:30 Reassessment: Patient appears in no apparent distress at this time. Patient and/or jb4 family updated on plan of care and expected duration. Pain level reassessed. Patient is alert, oriented x 3, equal unlabored respirations, skin warm/dry/pink. 22:30 Reassessment: Patient appears in no apparent distress at this time. Patient and/or jb4 family updated on plan of care and expected duration. Pain level reassessed. Patient is alert, oriented x 3, equal unlabored respirations, skin warm/dry/pink. 12/07 00:00 Reassessment: Patient appears in no apparent distress at this time. Patient and/or jb4 family updated on plan of care and expected duration. Pain level reassessed. Patient is alert, oriented x 3, equal unlabored respirations, skin warm/dry/pink. Patient states feeling better. Patient states symptoms have improved. 01:00 Reassessment: Patient appears in no apparent distress at this time. Patient and/or jb4 family updated on plan of care and expected duration. Pain level reassessed. Patient is alert, oriented x 3, equal unlabored respirations, skin warm/dry/pink. 02:00 Reassessment: Patient appears in no apparent distress at this time. Patient and/or jb4 family updated on plan of care and expected duration. Pain level reassessed. Patient is alert, oriented x 3, equal unlabored respirations, skin warm/dry/pink. Vital Signs: 12/06 20:34 BP 136 / 73; Pulse 100; Resp 24; Temp 99.5(O); Pulse Ox 80% on R/A; Weight 136.08 kg jb4 (R); Height 5 ft. 5 in. (165.10 cm) (R); Pain 10/10; 22:00 BP 147 / 73; Pulse 96; Resp 20; Pulse Ox 98% on 5 lpm NC; jb4 23:00 BP 133 / 71; Pulse 69; Resp 13; Pulse Ox 95% on 2 lpm NC; 4 12/07 00:00 BP 138 / 67; Pulse 102; Resp 14; Pulse Ox 98% on 2 lpm NC; jb4 01:00 BP 132 / 73; Pulse 107; Resp 22; Pulse Ox 98% on 2 lpm NC; jb4 02:00 BP 126 / 76; Pulse 104; Resp 15; Pulse Ox 98% on 2 lpm NC; jb4 12/06 20:34 Body Mass Index 49.92 (136.08 kg, 165.10 cm) [facility] ED Course: 12/06 20:32 Patient arrived in ED. jb4 20:33 Jean Carlos Pinzon MD is Attending Physician. ruddy 20:35 Patient has correct armband on for positive identification. Bed in low position. Call [facility] light in reach. Side rails up X 1. ekg monitor on. Pulse ox on. NIBP on. 20:35 Accessed PICC line. Dressing loose. Good blood return. Flushes easily. jb4 20:45 Triage completed. jb4 20:45 Arm band placed on right wrist. jb4 21:22 CT Chest Wo Con In Process Unspecified. EDMS 21:29 Macho Avitia, RN is Primary Nurse. jb4 22:01 XRAY Chest (1 view) In Process Unspecified. EDMS 22:09 Hayder Hastings is Hospitalizing Provider. [facility] 12/07 02:56 No provider procedures requiring assistance completed. Patient admitted, IV remains in [address] Administered Medications: 12/06 21:35 Drug: Pepcid (famotidine) 20 mg Route: IVP; Site: PICC; ms4 22:00 Follow up: Response: No adverse reaction jb4 21:37 Drug: Zofran (Ondansetron) 4 mg Route: IVP; Site: PICC; ms4 22:00 Follow up: Response: No adverse reaction jb4 21:39 Drug: NS 0.9% 1000 ml Route: IV; Rate: 125 ml/hr; Site: PIC; [facility] 12/07 02:24 Follow up: IV Status: Infusion continued upon admission [facility] 12/06 21:39 Drug: morphine 2 mg Route: IVP; Site: PICC; ms4 22:00 Drug: morphine 2 mg Route: IVP; Site: PIC; az4 22:30 Follow up: Response: No adverse reaction; Marked relief of symptoms; RASS: Alert and [facility] Calm (0) 22:55 Drug: Dilaudid (HYDROmorphone) 1 mg Route: IVP; Site: PIC; 4 23:30 Follow up: Response: No adverse reaction; Pain is decreased; RASS: Alert and Calm (0) jb4 22:59 Drug: levofloxacin 500 mg Volume: 100 ml; Route: IVPB; Infused Over: 60 mins; Site: [address]; 12/07 00:00 Follow up: Response: No adverse reaction; IV Status: Completed infusion; IV Intake: jb4 100ml 00:14 Drug: Potassium Effervescent Tablet 50 mEq Route: PO; jb4 01:17 Follow up: Response: No adverse reaction 4 00:14 Drug: Potassium Chloride 20 mEq Route: IV; Rate: per protocol; Site: PIC; jb4 01:17 Follow up: Response: No adverse reaction; IV Status: Completed infusion; IV Intake: jb4 100ml 00:14 Drug: Magnesium Sulfate 1 grams Route: IVPB; Infused Over: 1 hrs; Site: [facility]; jb4 01:17 Follow up: Response: No adverse reaction; IV Status: Completed infusion; IV Intake: jb4 100ml 01:16 Drug: Potassium Effervescent Tablet 50 mEq Route: PO; jb4 02:21 Follow up: Response: No adverse reaction [facility] Intake: 00:00 IV: 100ml; Total: 100ml. jb4 01:17 IV: 100ml; Total: 200ml. jb4 01:17 IV: 100ml; Total: 300ml. jb4 Outcome: 12/06 22:11 Decision to Hospitalize by Provider. [facility] 12/07 02:56 Admitted to Med/surg accompanied by tech, room 217, with chart, Report called to radha Keller RN Condition: stable Discharge instructions given to patient, Instructed on the need for admit, Demonstrated understanding of instructions. 02:57 Patient left the ED. jb4 Signatures: Dispatcher [employer] EDJean Carlos Boston MD MD cha Bryson, James, RN RN jb4 [place] Love RN RN ms4
[2020-12-06 22:21] LABS: Anisocytosis 3+; Blood Morphology Comment NOTED (NOT SEEN); Platelet Estimate INCR; White Blood Cell Scan OK (OK)
[2020-12-06 23:06] LABS: ALT/SGPT 7 U/L (12-78); AST/SGOT 8 U/L (15-37); Albumin 2.5 g/dL (3.4-5.0); Alkaline Phosphatase 114 U/L (45-117); BUN Blood Urea Nitrogen 6 mg/dL (7-18); Bicarbonate 32 mmol/L (21-32); Bilirubin Direct 0.2 mg/dL (0-0.2); Bilirubin Total 0.5 mg/dL (0.2-1.0); Glucose Level 112 mg/dL (74-106); Magnesium 1.7 mg/dL (1.8-2.4); NT PRO-BNP 1016 pg/mL (<125); Protein, Total 6.6 g/dL (6.4-8.2); Sodium Level 141 mmol/L (136-145); Troponin (Emerg Dept Use Only) < 0.02 ng/mL (0.0-0.045)
[2020-12-06] MEDS ORDERED: HYDROMORPHONE HCL 1 MG/ML INJ ONE ×2 (23:06→23:29)
[2020-12-06 23:14] LABS: Potassium 2.2 mmol/L (3.5-5.1)
[2020-12-07] MEDS ORDERED: MAGNESIUM SULFATE 1 gm IVPB 1 GM/100 ML BAG IV ONE (00:16)
[2020-12-07] MEDS ORDERED: POTASSIUM 25 MEQ EFFERV TAB ONE ×2 (00:16→01:34)
[2020-12-07] MEDS ORDERED: KCL 20 MEQ/100 mL IVPB 20 MEQ/100 ML BAG IV ONE (00:16)
[2020-12-07 00:42] LABS: Phosphorus 1.7 mg/dL (2.5-4.9)
--- NOTE | 2020-12-07 03:15 | P.HP ---
Certification for Inpatient Patient admitted to: Inpatient With expected LOS: <2 Midnights Patient will require the following post-hospital care: None Practitioner: I am a practitioner with admitting privileges, knowledge of patient current condition, hospital course, and medical plan of care. Services: Services provided to patient in accordance with Admission requirements found in Title 42 Section 412.3 of the Code of Federal Regulations <Anish Lim - Last Filed: 12/07/20 03:10> Patient History Date of Service: 12/07/20 Primary Care Provider: Osman Reason for admission: hypoxia History of Present Illness: Ms. Galdamez is a 60 yo F with liposarcoma currently receiving chemo (next session next week) and history of breast cancer who presents with suddent onset substernal chest pain and SOB beginning at 4pm. She describes chest pain as 10/10 continuous dull pressure, onset while lying down. She says she has never had this pain before. Upon arrival, O2 sats were 80%. At bedside, she is 96% on room air but continues to report SOB. She reports dry cough, otherwise no symptoms. She takes eliquis 5 BID at home. WBC 11.2, Hemoglobin 7.1, K 2.2, Mg 1.7, BNP 1016. Chest CT shows new small bilateral pleural effusions. Transfer to [facility] was attempted, but the hospital is on diversion. - Past Medical/Surgical History -: breast cancer -: liposarcoma -: mastectomy -: hysterectomy - Social History Smoking Status: Never smoker Alcohol use: No CD- Drugs: No Caffeine use: No Place of Residence: Home <Anish Lim Vinny - Last Filed: 12/07/20 03:10> Date of Service: 12/07/20 <Scott Coffey - Last Filed: 12/09/20 01:25> Allergies iopamidol [From Isovue-128] Allergy (Verified 12/07/20 03:52) Shortness of breath Home Medications: Apixaban [Eliquis] 10 mg PO BID 12/07/20 Folic Acid 1 mg PO DAILY 12/07/20 Gabapentin [Neurontin] 800 mg PO BID 12/07/20 Hydromorphone [Dilaudid*] 4 mg PO Q4HP PRN 12/07/20 Morphine Sulfate [Morphine Sulfate ER] 100 mg PO Q12H 12/07/20 OLANZapine [Olanzapine] 2.5 mg PO BEDTIME PRN PRN 12/07/20 Review of Systems 10-point ROS is otherwise unremarkable Respiratory: Cough, Shortness of Breath Cardiovascular: Chest Pain <Anish Lim - Last Filed: 12/07/20 03:10> Physical Examination - Physical Exam General: Alert, In no apparent distress, Oriented x3, Cooperative HEENT: Atraumatic, PERRLA, Mucous membr. moist/pink, EOMI, Sclerae nonicteric Neck: Supple, 2+ carotid pulse no bruit, No LAD, Without JVD or thyroid abnormality Respiratory: Normal air movement, Crackles/rales Cardiovascular: Regular rate/rhythm, Normal S1 S2 Gastrointestinal: Normal bowel sounds, No tenderness Musculoskeletal: No tenderness Integumentary: Other (swelling in L thigh and calf, liposarcoma in left groin ) Neurological: Normal speech, Normal strength at 5/5 x4 extr, Normal tone, Normal affect - Studies Laboratory Data (last 24 hrs) 12/06/20 23:37: Phosphorus Cancelled 12/06/20 21:10: PT 17.8 H, INR 1.54 12/06/20 21:10: WBC 11.20 H, Hgb 7.1 L, Hct 22.0 L, Plt Count 452 H 12/06/20 21:10: Sodium 141, Potassium 2.2 L*, BUN 6 L, Creatinine 0.70, Glucose 112 H, Phosphorus 1.7 L, Magnesium 1.7 L, Total Bilirubin 0.5, AST 8 L, ALT 7 L, Alkaline Phosphatase 114 <Anish Lim - Last Filed: 12/07/20 03:10> - Studies Microbiology Data (last 24 hrs): 12/06/20 22:42 Blood - Blood Anaerobic Blood Culture - Final <Scott Coffey - Last Filed: 12/09/20 01:25> Assessment and Plan - Problems (Diagnosis) (1) Liposarcoma Current Visit: Yes Status: Chronic (2) Chest pain Current Visit: Yes Status: Acute Qualifiers: Chest pain type: unspecified Qualified Code(s): R07.9 - Chest pain, unspecified (3) Hypoxia Current Visit: Yes Status: Acute (4) Anemia Current Visit: Yes Status: Acute Qualifiers: Anemia type: unspecified type Qualified Code(s): D64.9 - Anemia, unspecified (5) Pleural effusion Current Visit: Yes Status: Acute (6) Hypokalemia Current Visit: Yes Status: Acute - Plan pulm consulted will obtain VQ scan in the AM, will change to eliquis 10 BID will obtain ECHO in the AM O2 as needed, breathing treatments as needed CRP, procalcitonin, blood cultures pending. received antibiotics in the ED. repeat troponin the AM 2 units of pRBCs ordered, will check posttransfusion H/H, iron levels pending potassium replaced in the ED, will recheck with AM labs, potassium and magnesium replacement protocol pain management as needed, reconcile and continue home medications Discharge Plan: Home Plan to discharge in: 48 Hours - Advance Directives Does patient have a Living Will: No Does patient have a Durable POA for Healthcare: No - Code Status/Comfort Care Code Status Assessed: Yes (full code ) Critical Care: No Time Spent Managing Pts Care (In Minutes): 70 <Anish Lim - Last Filed: 12/07/20 03:10> - Problems (Diagnosis) (1) Dyspnea Current Visit: Yes Status: Acute (2) Hypoxemia Current Visit: Yes Status: Acute (3) Pleural effusion Current Visit: Yes Status: Acute (4) Liposarcoma Current Visit: Yes Status: Chronic (5) Anemia due to acute blood loss Current Visit: Yes Status: Acute <Scott Coffey - Last Filed: 12/09/20 01:25> Date of Service: 12/07/20 Subjective Agree with plan of care as mentioned above Review of Systems 10-point ROS is otherwise unremarkable Physical Examination - Vital Signs Reviewed - Physical Exam General: Alert, In no apparent distress, Oriented x3, Other (Tearful and depressed) Respiratory: Diminished Cardiovascular: Regular rate/rhythm, Normal S1 S2, No murmurs Gastrointestinal: Normal bowel sounds, Soft and benign, Non-distended, No tenderness, No rebound, No guarding Musculoskeletal: No clubbing, No swelling, Other (20 centimeter mass-left lower abdomen to the upper aspect of the left leg) Neurological: Sensation intact, Cranial nerves 3-12 intact, Abnormal strength Lymphatics: No axilla or inguinal lymphadenopathy Assessment & Plan - Problems (Diagnosis) (1) Dyspnea Current Visit: Yes Status: Acute (2) Hypoxemia Current Visit: Yes Status: Acute (3) Pleural effusion Current Visit: Yes Status: Acute (4) Liposarcoma Current Visit: Yes Status: Chronic (5) Anemia due to acute blood loss Current Visit: Yes Status: Acute - Plan Plan: 1. Hemoglobin is stable. Plan to transfuse 2 units of packed red blood cells 2. V/Q scan pending. Echocardiogram unremarkable. Patient probably with diastolic heart failure. Continue diuresing 3. Continue monitoring renal function 4. Increase physical activity 5. If patient's clinical condition deteriorates may need to consider hospice 6. Plan is for patient to get palliative chemo and radiation as an outpatient 7. GI and DVT prophylaxis Discharge Plan: Home Plan to discharge in: Greater than 2 days - Advance Directives Does patient have a Living Will: No Does patient have a Durable POA for Healthcare: No - Code Status/Comfort Care Code Status Assessed: Yes Code Status: Full Code Critical Care: No Time Spent Managing PTS Care (In Minutes): 35 <Scott Coffey - Last Filed: 12/09/20 01:25>
[2020-12-07] MEDS: LEVALBUTEROL 0.63 MG/3 ML NEB NEB SCH ×4 (03:19→20:25)
[2020-12-07] MEDS ORDERED: MORPHINE 2 MG/ML SYR IV PRN (03:19)
[2020-12-07] MEDS ORDERED: ACETAMINOPHEN 500 MG TAB PO PRN (03:19)
[2020-12-07 03:31] VITALS: BMI 50.4
[2020-12-07] MEDS: HYDROMORPHONE HCL 0.5 MG/0.5 ML INJ IV PRN ×5 (04:00→22:31)
[2020-12-07] MEDS: APIXABAN 5 MG TABLET PO SCH ×3 (04:02→21:08)
[2020-12-07] MEDS ORDERED: DIPHENHYDRAMINE 50 MG/ML VIAL IV ONE (04:51)
[2020-12-07] MEDS ORDERED: ACETAMINOPHEN 325 MG TABLET PO ONE (04:51)
[2020-12-07] MEDS ORDERED: NA CHLORIDE 0.9% 250 ML ONE ×2 (05:28→10:10)
[2020-12-07 06:02] LABS: Absolute Lymphocytes (CBC) 0.4 K/uL (0.7-4.9); Basophils % 1.3 % (0-1.3); Lymphocytes % 3.6 % (15.3-44.8); MPV 7.3 fL (7.6-11.3); RBC Red Blood Cell Count 3.02 M/uL (3.86-4.86)
[2020-12-07 06:38] LABS: ALT/SGPT 8 U/L (12-78); AST/SGOT 5 U/L (15-37); Albumin 2.5 g/dL (3.4-5.0); Alkaline Phosphatase 115 U/L (45-117); BUN Blood Urea Nitrogen 6 mg/dL (7-18); Bicarbonate 32 mmol/L (21-32); Bilirubin Total 0.5 mg/dL (0.2-1.0); Glucose Level 118 mg/dL (74-106); HDL Cholesterol 44 mg/dL (40-60); LDL Cholesterol, Calculated 66 (<130); Magnesium 1.9 mg/dL (1.8-2.4); Potassium 3.1 mmol/L (3.5-5.1); Protein, Total 6.6 g/dL (6.4-8.2); Sodium Level 143 mmol/L (136-145); Troponin I < 0.02 ng/mL (0.0-0.045)
[2020-12-07 06:52] LABS: Ferritin 397.2 ng/mL (8-388); Folic Acid, (Folate) 7.6 ng/mL (3.1-17.5)
[2020-12-07] MEDS ORDERED: POTASSIUM 25 MEQ EFFERV TAB PO ONE (06:57)
[2020-12-07] MEDS: POTASS/SODIUM PHOSPHATE 1 PKT POWD.PACK PO SCH ×3 (07:00→08:54)
[2020-12-07 07:44] LABS: Anisocytosis 3+; Blood Morphology Comment NOTED (NOT SEEN); Hypochromasia 2+; Platelet Estimate ADEQ; White Blood Cell Scan OK (OK)
--- NOTE | 2020-12-07 12:04 | P.CNS ---
Date of Consult: 12/07/20 Reason for Consult: Chest pain Primary Care Provider: Osman Chief Complaint: hypoxia History of Present Illness: AGe 60 AW substernal chest discomfort sudden on the R parasternal region AW hypoxemia, very anxious Tx for liposarcoma with chemo Pt is anticoagulated at home Allergies iopamidol [From Isovue-128] Allergy (Verified 12/07/20 03:52) Shortness of breath Home Medications: Apixaban [Eliquis] 10 mg PO BID 12/07/20 Folic Acid 1 mg PO DAILY 12/07/20 Gabapentin [Neurontin] 800 mg PO BID 12/07/20 Hydromorphone [Dilaudid*] 4 mg PO Q4HP PRN 12/07/20 Morphine Sulfate [Morphine Sulfate ER] 100 mg PO Q12H 12/07/20 OLANZapine [Olanzapine] 2.5 mg PO BEDTIME PRN PRN 12/07/20 - Past Medical/Surgical History Diabetic: No -: breast cancer -: liposarcoma -: mastectomy -: hysterectomy - Family History Mother Medical History: Diabetes Father Medical History: Cancer Notes: lung cancer Brother Medical History: Hypertension, Diabetes Sister Medical History: Liver disease Notes: cirrhosis - Social History Smoking Status: Unknown if ever smoked Alcohol use: No CD- Drugs: No Caffeine use: No Place of Residence: Home Review of Systems General: Weakness Cardiovascular: Chest Pain, Edema Physical Examination Temp Pulse Resp BP Pulse Ox 98.6 F 97 H 18 120/62 97 12/07/20 08:00 12/07/20 08:00 12/07/20 09:27 12/07/20 08:00 12/07/20 09:27 General: Alert, Oriented x3, Moderate distress Neck: Supple Respiratory: Clear to auscultation bilaterally Cardiovascular: Edema (left Leg > R) Gastrointestinal: Normal bowel sounds, Soft and benign Laboratory Data (last 24 hrs) 12/06/20 23:37: Phosphorus Cancelled 12/06/20 21:10: PT 17.8 H, INR 1.54 12/06/20 21:10: WBC 11.20 H, Hgb 7.1 L, Hct 22.0 L, Plt Count 452 H 12/06/20 21:10: Sodium 141, Potassium 2.2 L*, BUN 6 L, Creatinine 0.70, Glucose 112 H, Phosphorus 1.7 L, Magnesium 1.7 L, Total Bilirubin 0.5, AST 8 L, ALT 7 L, Alkaline Phosphatase 114 - Problems (1) Chest pain Current Visit: Yes Status: Acute Plan: Pt is 60 yrs of age Tx for liposarcoma of Left psoas ass with LEg edema aw sudden onset of hest pain on Eliquis/ mild hypokalemia and severe anemia Agree with transfusion/CXRY clear CT minimla effusions. troponinc neg ECHO pending/ VS stable/last chemo was a month ago Qualifiers: Chest pain type: unspecified Qualified Code(s): R07.9 - Chest pain, unspecified
--- NOTE | 2020-12-07 14:03 | ECHO ---
HEIGHT: 5 ft 5 in WEIGHT: 303 lb 0 oz DATE OF STUDY: 12/07/[address]: Anish Lim 2-DIMENSIONAL: YES M.MODE: YES DOPPLER: YES COLOR FLOW: YES TDS: NO PORTABLE: NO DEFINITY: NO BUBBLE STUDY: NO DIAGNOSIS: PERICARDIAL EFFUSION CARDIAC HISTORY: CATHERIZATION: NO SURGERY: NO PROSTHETIC VALVE: NO PACEMAKER: NO MEASUREMENTS (cm) DIASTOLIC (NORMALS) SYSTOLIC (NORMALS) IVSd 1.0 (0.6-1.2) LA Diam 3.4 (1.9-4.0) LVEF 57% LVIDd 5.0 (3.5-5.7) LVIDs 3.5 (2.0-3.5) %FS 30% LVPWd 1.0 (0.6-1.2) Ao Diam 2.4 (2.0-3.7) 2 DIMENSIONAL ASSESSMENT: RIGHT ATRIUM: NORMAL LEFT ATRIUM: NORMAL RIGHT VENTRICLE: NORMAL LEFT VENTRICLE: NORMAL TRICUSPID VALVE: MITRAL VALVE: PULMONIC VALVE: NORMAL AORTIC VALVE: NORMAL PERICARDIAL EFFUSION: TRACE AORTIC ROOT: NORMAL LEFT VENTRICULAR WALL MOTION: NORMAL DOPPLER/COLOR FLOW: SEE BELOW. COMMENTS: NORMAL LEFT VENTRICULAR EJECTION FRACTION OF 55-60%. NORMAL WALL MOTION. MILD MITRAL AND TRICUSPID REGURGITATION. TRACE PERICARDIAL EFFUSION. TECHNOLOGIST: Jania SANTANA
[2020-12-07] MEDS ORDERED: POTASSIUM CL SA 10 MEQ TAB PO ONE (16:00)
[2020-12-07 16:28] LABS: Hematocrit 24.1 % (36.0-45.0)
[2020-12-07] MEDS: ONDANSETRON 4 MG/2 ML VIAL IV PRN (17:57)
[2020-12-08] MEDS: LEVALBUTEROL 0.63 MG/3 ML NEB NEB SCH ×4 (02:00→20:00)
[2020-12-08] MEDS: ONDANSETRON 4 MG/2 ML VIAL IV PRN ×4 (02:44→23:57)
[2020-12-08] MEDS: HYDROMORPHONE HCL 0.5 MG/0.5 ML INJ IV PRN ×4 (02:44→16:35)
[2020-12-08] MEDS ORDERED: POTASSIUM CL SA 10 MEQ TAB PO ONE ×3 (02:54→23:00)
[2020-12-08 06:16] LABS: Absolute Lymphocytes (CBC) 0.5 K/uL (0.7-4.9); Basophils % 0.6 % (0-1.3); Hematocrit 23.4 % (36.0-45.0); Lymphocytes % 5.4 % (15.3-44.8); MPV 7.3 fL (7.6-11.3); RBC Red Blood Cell Count 3.15 M/uL (3.86-4.86)
[2020-12-08 06:25] LABS: ALT/SGPT < 6 U/L (12-78); AST/SGOT 9 U/L (15-37); Albumin 2.3 g/dL (3.4-5.0); Alkaline Phosphatase 142 U/L (45-117); BUN Blood Urea Nitrogen 5 mg/dL (7-18); Bicarbonate 32 mmol/L (21-32); Bilirubin Total 0.5 mg/dL (0.2-1.0); Glucose Level 90 mg/dL (74-106); Magnesium 1.9 mg/dL (1.8-2.4); Phosphorus 2.3 mg/dL (2.5-4.9); Potassium 3.1 mmol/L (3.5-5.1); Protein, Total 6.3 g/dL (6.4-8.2); Sodium Level 144 mmol/L (136-145)
[2020-12-08] MEDS: APIXABAN 5 MG TABLET PO SCH ×2 (08:41→20:41)
--- NOTE | 2020-12-08 08:51 | RAD REPORT ---
EXAM DESCRIPTION: Claudia Single View12/08/2020 8:44 am CLINICAL HISTORY: Shortness of breath COMPARISON: December 06, 2020 FINDINGS: Mild bilateral pulmonary opacities. Small to moderate pleural effusions suspected Heart remains enlarged IMPRESSION: CHF
--- NOTE | 2020-12-08 08:52 | RAD REPORT ---
EXAM DESCRIPTION: NM - Vent Perfusion VQ Scan - 12/08/2020 7:12 am CLINICAL HISTORY: Shortness of breath/hypoxia COMPARISON: Chest x-ray December 08, 2020 TECHNIQUE: 16.6 Mci [id number] was administered by inhalation. First breath, equilibrium, and washout images of the lungs obtained 7.6 millicuries Technetium-99 MAA was administered intravenously. Anterior, posterior, lateral and ob lique views of the lungs were taken. FINDINGS: The lungs demonstrate relatively homogeneous radiotracer activity on ventilation and perfu karie sequences. No mismatched segmental or lobar perfusion defects are seen. Pleural fluid is seen within the major fissure. IMPRESSION: No evidence of a pulmonary embolus
[2020-12-08] MEDS ORDERED: FUROSEMIDE 20 MG/ 2ML VIAL IV ONE (09:31)
[2020-12-08] MEDS ORDERED: POTASSIUM CL 40 MEQ in NA CHLORIDE 0.9% 500 ML IV SCH (10:00)
[2020-12-08] MEDS ORDERED: ONDANSETRON 4 MG/2 ML VIAL IV STA (12:16)
[2020-12-08] MEDS ORDERED: POTASSIUM CL 40 MEQ in NA CHLORIDE 0.9% 500 ML IV ONE (13:00)
[2020-12-08] MEDS: SPIRONOLACTONE 25 MG TABLET PO SCH (13:00)
[2020-12-08] MEDS ORDERED: HYDROMORPHONE HCL 1 MG/ML INJ IV ONE (18:15)
[2020-12-08] MEDS: HYDROMORPHONE HCL 1 MG/ML INJ IV PRN (22:20)
[2020-12-09] MEDS: KCL 20 MEQ/100 mL IVPB 20 MEQ/100 ML BAG IV SCH ×3 (00:17→23:31)
--- NOTE | 2020-12-09 01:17 | P.PN ---
Subjective Date of Service: 12/08/20 Patient is breathing better. However, still having a lot of pain. Spoke with Oncology and patient's sarcoma is incurable. Continuing with palliative chemotherapy. However, patient still requiring a lot of pain medication. V/Q scan was negative. Echocardiogram with no significant abnormalities. Patient still with anemia after 2 units of packed red blood cells was given. Continue with supportive care and anticipate discharge over the next 24-48 hr. Review of Systems 10-point ROS is otherwise unremarkable Physical Examination - Vital Signs Temperature: 98.1 F Blood Pressure: 156/82 Pulse: 107 Respirations: 18 Pulse Ox (%): 94 - Physical Exam General: Alert, In no apparent distress, Oriented x3, Other (Tearful and depressed) Respiratory: Diminished Cardiovascular: Regular rate/rhythm, Normal S1 S2, No murmurs Gastrointestinal: Normal bowel sounds, Soft and benign, Non-distended, No tenderness, No rebound, No guarding Musculoskeletal: No clubbing, No swelling, Other (20 centimeter mass-left lower abdomen to the upper aspect of the left leg) Neurological: Sensation intact, Cranial nerves 3-12 intact, Abnormal strength Lymphatics: No axilla or inguinal lymphadenopathy - Studies Microbiology Data (last 24 hrs): 12/06/20 22:42 Blood - Blood Anaerobic Blood Culture - Final Medications List Reviewed: Yes Assessment & Plan - Problems (Diagnosis) (1) Dyspnea Current Visit: Yes Status: Acute (2) Hypoxemia Current Visit: Yes Status: Acute (3) Pleural effusion Current Visit: Yes Status: Acute (4) Liposarcoma Current Visit: Yes Status: Chronic (5) Anemia due to acute blood loss Current Visit: Yes Status: Acute - Plan Plan: 1. Patient given 2 units packed red blood cells. Hemoglobin stable. Hematology/oncology okay with hemoglobin 7.7. 2. V/Q scan negative. Echocardiogram unremarkable. Patient probably with diastolic heart failure. Continue diuresing 3. Continue monitoring renal function 4. Increase physical activity 5. If patient's clinical condition deteriorates may need to consider hospice 6. Plan is for patient to get palliative chemo and radiation as an outpatient 7. GI and DVT prophylaxis Discharge Plan: Home Plan to discharge in: Greater than 2 days - Advance Directives Does patient have a Living Will: No Does patient have a Durable POA for Healthcare: No - Code Status/Comfort Care Code Status Assessed: Yes Code Status: Full Code Critical Care: No Time Spent Managing PTS Care (In Minutes): 35
[2020-12-09] MEDS ORDERED: OLANZapine 2.5 MG TAB PO PRN (01:24)
[2020-12-09] MEDS: LEVALBUTEROL 0.63 MG/3 ML NEB NEB SCH ×4 (01:26→20:05)
[2020-12-09] MEDS ORDERED: NA CHLORIDE 0.9% 250 ML ONE ×2 (01:50→23:54)
[2020-12-09] MEDS: HYDROMORPHONE HCL 1 MG/ML INJ IV PRN ×6 (01:52→20:29)
[2020-12-09] MEDS: ONDANSETRON 4 MG/2 ML VIAL IV PRN ×2 (05:35→10:44)
[2020-12-09 06:29] LABS: BUN Blood Urea Nitrogen 5 mg/dL (7-18); Bicarbonate 29 mmol/L (21-32); Glucose Level 80 mg/dL (74-106); Phosphorus 2.4 mg/dL (2.5-4.9); Sodium Level 142 mmol/L (136-145)
[2020-12-09] MEDS ORDERED: KCL 20 MEQ/100 mL IVPB 20 MEQ/100 ML BAG IV SCH (08:00)
[2020-12-09] MEDS: APIXABAN 5 MG TABLET PO SCH ×2 (08:55→20:26)
[2020-12-09] MEDS: GABAPENTIN 400 MG CAP PO SCH ×2 (08:55→20:26)
[2020-12-09] MEDS: SPIRONOLACTONE 25 MG TABLET PO SCH (08:55)
[2020-12-09] MEDS: FUROSEMIDE 20 MG TABLET PO SCH (08:55)
[2020-12-09] MEDS ORDERED: POTASSIUM PHOS IN 0.9 % NACL 15 MMOL/250 ML BAG IV ONE (10:00)
[2020-12-09] MEDS: SOD FERRIC GLUC COMPLX/SUCROSE 250 MG in NA CHLORIDE 0.9% 250 ML IV SCH (10:07)
[2020-12-09 12:41] LABS: Urine Appearance CLEAR (Clear); Urine Bilirubin NEGATIVE (Negative); Urine Blood NEGATIVE (Negative); Urine Color YELLOW (Yellow); Urine Glucose NEGATIVE (Negative); Urine Protein NEGATIVE (Negative); Urine Specific Gravity <=1.005 (1.005-1.030); Urine Urobilinogen 0.2 mg/dL (0.2-1.0); Urine pH 7.5 (5.0-7.0)
[2020-12-09 13:02] LABS: Urine Microscopic Reflex NO UMIC
[2020-12-09] MEDS ORDERED: NA CHLORIDE 0.9% 500 ML ONE (13:02)
--- NOTE | 2020-12-09 16:22 | P.PN ---
Subjective Date of Service: 12/09/20 Primary Care Provider: Osman Chief Complaint: hypoxia Subjective: No new changes Review of Systems 10-point ROS is otherwise unremarkable General: Weakness Gastrointestinal: Nausea Physical Examination - Vital Signs Temperature: 98.4 F Blood Pressure: 158/89 Pulse: 98 Respirations: 18 Pulse Ox (%): 98 - Physical Exam General: Alert, In no apparent distress HEENT: Atraumatic, PERRLA, EOMI Neck: Supple, JVD not distended Respiratory: Clear to auscultation bilaterally, Normal air movement Cardiovascular: Regular rate/rhythm, Normal S1 S2 Gastrointestinal: Normal bowel sounds, No tenderness Musculoskeletal: No tenderness Integumentary: No rashes Neurological: Normal speech, Normal tone, Normal affect Lymphatics: No axilla or inguinal lymphadenopathy - Studies Medications List Reviewed: Yes Assessment & Plan - Problems (Diagnosis) (1) Anemia Current Visit: Yes Status: Acute Plan: She is staying stable at 7.7. This is acceptable to her hemoncologist per nursing Qualifiers: Anemia type: unspecified type Qualified Code(s): D64.9 - Anemia, unspecified (2) Dyspnea Current Visit: Yes Status: Acute Plan: Patient is doing better. Normal echo and v/q scan. Qualifiers: Dyspnea type: unspecified Qualified Code(s): R06.00 - Dyspnea, unspecified (3) Sarcoma Current Visit: Yes Status: Chronic Plan: She is having palative chemo radiation therapy. Continue therapy as an outpatient Discharge Plan: Home Plan to discharge in: 24 Hours - Code Status/Comfort Care Code Status Assessed: No Code Status: Full Code Physician Review: Patient Assessed, Agree with Above Assessment and Plan Critical Care: No Time Spent Managing Pts Care (In Minutes): 20
[2020-12-09] MEDS: PROMETHAZINE INJ 25 MG/ML AMP IV PRN ×2 (16:45→20:30)
[2020-12-10] MEDS: PROMETHAZINE INJ 25 MG/ML AMP IV PRN ×5 (00:36→15:48)
[2020-12-10] MEDS: HYDROMORPHONE HCL 1 MG/ML INJ IV PRN ×5 (00:37→15:53)
[2020-12-10] MEDS: LEVALBUTEROL 0.63 MG/3 ML NEB NEB SCH ×3 (01:30→14:03)
[2020-12-10] MEDS: KCL 20 MEQ/100 mL IVPB 20 MEQ/100 ML BAG IV SCH ×2 (01:57→03:58)
[2020-12-10 06:20] LABS: Absolute Lymphocytes (CBC) 0.6 K/uL (0.7-4.9); Basophils % 0.9 % (0-1.3); Hematocrit 24.7 % (36.0-45.0); Lymphocytes % 7.4 % (15.3-44.8); MPV 7.1 fL (7.6-11.3); RBC Red Blood Cell Count 3.31 M/uL (3.86-4.86)
[2020-12-10 06:44] LABS: ALT/SGPT 10 U/L (12-78); AST/SGOT 9 U/L (15-37); Albumin 2.3 g/dL (3.4-5.0); Alkaline Phosphatase 100 U/L (45-117); BUN Blood Urea Nitrogen 4 mg/dL (7-18); Bicarbonate 31 mmol/L (21-32); Bilirubin Total 0.4 mg/dL (0.2-1.0); Glucose Level 80 mg/dL (74-106); Potassium 3.3 mmol/L (3.5-5.1); Sodium Level 143 mmol/L (136-145)
[2020-12-10] MEDS: GABAPENTIN 400 MG CAP PO SCH (07:53)
[2020-12-10] MEDS: APIXABAN 5 MG TABLET PO SCH (07:54)
[2020-12-10] MEDS: FUROSEMIDE 20 MG TABLET PO SCH (07:54)
[2020-12-10] MEDS: SPIRONOLACTONE 25 MG TABLET PO SCH (07:55)
[2020-12-10] MEDS: ENSURE HIGH PROTEIN 237 ML CAN PO SCH ×2 (09:00→13:48)
[2020-12-10] MEDS: SOD FERRIC GLUC COMPLX/SUCROSE 250 MG in NA CHLORIDE 0.9% 250 ML IV SCH (10:01)
[2020-12-10] MEDS ORDERED: KCL 20 MEQ/100 mL IVPB 20 MEQ/100 ML BAG IV SCH (13:30)
[2020-12-10] MEDS ORDERED: NA CHLORIDE 0.9% 500 ML ONE (14:03)
--- NOTE | 2020-12-10 15:23 | P.DS ---
Admission Date: 12/07/20 Discharge Date: 12/10/20 Primary Care Provider: Osman Reason for Admission: hypoxia - Problems (1) Anemia Current Visit: Yes Status: Acute Qualifiers: Anemia type: unspecified type Qualified Code(s): D64.9 - Anemia, unspecified (2) Dyspnea Current Visit: Yes Status: Acute Qualifiers: Dyspnea type: unspecified Qualified Code(s): R06.00 - Dyspnea, unspecified (3) Sarcoma Current Visit: Yes Status: Chronic Brief History of Present Illness: Patient admitted for anemia. She has a history of sarcoma. Hospital Course: Patient was admitted and transfused. She has chronic pain. Takes dilaudid 4mg at home. She is doing well today. HB staying stable. at 7.8. Will discharge her home. Have her follow up with her pcp Vital Signs/Physical Exam: Temp Pulse Resp BP Pulse Ox 97.6 F 95 H 18 145/86 H 99 12/10/20 12:00 12/10/20 12:00 12/10/20 12:23 12/10/20 12:00 12/10/20 12:23 General: Alert, In no apparent distress HEENT: Atraumatic, PERRLA, EOMI Neck: Supple, JVD not distended Respiratory: Clear to auscultation bilaterally, Normal air movement Cardiovascular: Regular rate/rhythm, Normal S1 S2 Gastrointestinal: Normal bowel sounds, No tenderness Musculoskeletal: No tenderness Integumentary: No rashes Neurological: Normal speech, Normal tone, Normal affect Lymphatics: No axilla or inguinal lymphadenopathy Laboratory Data at Discharge: WBC 7.90 K/uL (4.3-10.9) D 12/10/20 05:50 Hgb 7.8 g/dL (12.0-15.0) L 12/10/20 05:50 Hct 24.7 % (36.0-45.0) L 12/10/20 05:50 Plt Count 435 K/uL (152-406) H 12/10/20 05:50 PT 17.8 SECONDS (9.5-12.5) H 12/06/20 21:10 INR 1.54 12/06/20 21:10 Sodium Cancelled 12/10/20 05:56 Potassium 3.2 mmol/L (3.5-5.1) L 12/10/20 12:24 BUN Cancelled 12/10/20 05:56 Creatinine Cancelled 12/10/20 05:56 Glucose Cancelled 12/10/20 05:56 Phosphorus 2.9 mg/dL (2.5-4.9) 12/10/20 05:56 Magnesium 1.9 mg/dL (1.8-2.4) 12/08/20 05:30 Total Bilirubin 0.4 mg/dL (0.2-1.0) 12/10/20 05:50 AST 9 U/L (15-37) L 12/10/20 05:50 ALT 10 U/L (12-78) L 12/10/20 05:50 Alkaline Phosphatase 100 U/L (45-117) 12/10/20 05:50 Troponin I < 0.02 ng/mL (0.0-0.045) 12/07/20 05:08 Triglycerides 108 mg/dL (<150) 12/07/20 05:08 Cholesterol 132 mg/dL (<200) 12/07/20 05:08 HDL Cholesterol 44 mg/dL (40-60) 12/07/20 05:08 Cholesterol/HDL Ratio 3.00 12/07/20 05:08 Home Medications: Apixaban [Eliquis] 10 mg PO BID 12/07/20 Folic Acid 1 mg PO DAILY 12/07/20 Gabapentin [Neurontin] 800 mg PO BID 12/07/20 Hydromorphone [Dilaudid*] 4 mg PO Q4HP PRN 12/07/20 Morphine Sulfate [Morphine Sulfate ER] 100 mg PO Q12H 12/07/20 OLANZapine [Olanzapine] 2.5 mg PO BEDTIME PRN PRN 12/07/20 Potassium Chloride [K-Dur] 20 meq PO DAILY 90 Days #90 tab.er.prt 12/10/20 New Medications: Potassium Chloride [K-Dur] 20 meq PO DAILY 90 Days #90 tab.er.prt Diet: Regular Followup: Gisele Brewer DO, DO [Primary Care Provider] - Rafaela James MD [ACTIVE - CAN ADMIT] - 1 Week Time spent managing pt's care (in minutes): 30
[2020-12-10 15:55] VITALS: O2SAT 99
[2020-12-10 17:37] VITALS: BP 141/77; TEMP 98.9
[2020-12-11 12:14] LABS: C.diff Antigen/Toxin Ag neg : Tox neg (NEG : NEG)
== END 2020-12-10 19:25 | disposition home or self-care (01) | DRG 812 ==
LOC: ER 20:15 → ERHOLD 12-07 00:07 → 2ND 12-07 02:52
PROVIDERS: ADMIT Hospitalist; ATTEND Internal Medicine
DX: D62 Acute posthemorrhagic anemia (principal); J90 Pleural effusion, not elsewhere classified; R07.9 Chest pain, unspecified; R06.00 Dyspnea, unspecified; R09.02 Hypoxemia; C50.912 Malignant neoplasm of unspecified site of left female breast; E87.6 Hypokalemia; E83.42 Hypomagnesemia
CPT/HCPCS: 36415; 36430; 71045; 71250; 78582; 80048; 80053; 80061; 80076; 81003; 82607; 82728; 82746; 83540; 83605; 83735; 83880; 84100; 84132; 84145; 84439; 84443; 84466; 84484; 85014; 85018; 85025; 85610; 86140; 86850; 86900; 86901; 87040; 87324; 87449; 93005; 93306; 94640; 94760; 96361; 96365; 96367; 96368; 96375; 99285; A9540; A9558; J1170; J1200; J1940; J2270; J2405; J2550; J2916; J3480; J7030; J7040; J7050; P9016; U0003

== ENCOUNTER 2020-12-23 10:14 | Inpatient (IN) | payer OTHER ==
[2020-12-23 10:57] LABS: Absolute Lymphocytes (CBC) 0.7 K/uL (0.7-4.9); Basophils % 0.2 % (0-1.3); Hematocrit 26.7 % (36.0-45.0); Lymphocytes % 2.6 % (15.3-44.8); RBC Red Blood Cell Count 3.49 M/uL (3.86-4.86)
[2020-12-23] MEDS ORDERED: ONDANSETRON 4 MG/2 ML VIAL ONE (11:05)
[2020-12-23] MEDS ORDERED: MORPHINE 4 MG/ML SYR ONE (11:05)
[2020-12-23 11:07] LABS: Protime INR 1.26
[2020-12-23] MEDS ORDERED: PROMETHAZINE INJ 25 MG/ML AMP ONE (11:12)
[2020-12-23] MEDS ORDERED: HYDROMORPHONE HCL 1 MG/ML INJ ONE ×2 (11:13→12:42)
[2020-12-23 11:21] LABS: BUN Blood Urea Nitrogen 17 mg/dL (7-18); Bicarbonate 18 mmol/L (21-32); Glucose Level 92 mg/dL (74-106); NT PRO-BNP 479 pg/mL (<125); Sodium Level 141 mmol/L (136-145); Troponin (Emerg Dept Use Only) < 0.02 ng/mL (0.0-0.045)
--- NOTE | 2020-12-23 11:23 | RAD REPORT ---
EXAM DESCRIPTION: RAD - Chest Single View - 12/23/2020 10:46 am CLINICAL HISTORY: CHEST PAIN Chest pain. COMPARISON: Chest Single View dated 12/08/2020; Chest Single View dated 12/06/2020; Chest Single View dated 10/27/2020; Chest Single View dated 08/20/2020 FINDINGS: Portable technique limits examination quality. The lungs are grossly clear. The heart is mildly enlarged in size. Left PICC line has its tip in the region of atrial caval junction.
[2020-12-23 11:29] LABS: Potassium 2.8 mmol/L (3.5-5.1)
[2020-12-23 11:45] LABS: Anisocytosis 2+; Blood Morphology Comment NOTED (NOT SEEN); Hypochromasia 1+; Platelet Estimate ADEQ
[2020-12-23] MEDS ORDERED: NA CHLORIDE 0.9% 100 ML ONE (11:56)
[2020-12-23] MEDS ORDERED: KCL 20 MEQ/100 mL IVPB 20 MEQ/100 ML BAG IV ONE (11:56)
--- NOTE | 2020-12-23 12:51 | EDPHYS ---
Physician Documentation [facility] Name: Sade Galdamez Age: 60 yrs Sex: Female : 1960 Arrival Date: 12/23/2020 Time: 10:15 Bed 8 Private MD: Gisele Brewer H ED Physician Nolberto Richardson HPI: 12/23 10:58 This 60 yrs old Black Female presents to ER via Wheelchair with complaints of Chest rn Pain. 10:58 The patient or guardian reports chest pain that is located primarily in the substernal rn area. Onset: this morning. The pain radiates to back. Associated signs and symptoms: Pertinent positives: nausea, Pertinent negatives: abdominal pain, cough, shortness of breath, syncope, vomiting. The chest pain is described as aching, dull. Duration: The patient or guardian reports a single episode, that is still ongoing. Modifying factors: The symptoms are alleviated by nothing. the symptoms are aggravated by nothing. Severity of pain: At its worst the pain was moderate in the emergency department the pain has improved. The patient has not experienced similar symptoms in the past. The patient has been recently seen by a physician:. Patient reports began with substernal chest pain that radiates to the back around 7 AM today. Denies any previous chest pain. 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 Chest pain is constant. Does not feel ill with a cough. Reports stress test a few years ago that was clear. Denies any trauma. Nothing makes it better or worse. No hemoptysis. No history of DVT or PE and patient on Eliquis. 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 Historical: - Allergies: 10:23 Iodine; ll1 - PMHx: 10:23 breast cancer; chemotherapy; Hypertension; Tumor to groin area; ll1 - PSHx: 10:23 ovi mastectomy; hysterectomy; ll1 - Immunization history:: Client reports receiving the 2nd dose of the Covid vaccine, Flu vaccine is not up to date. - Social history:: Smoking status: Patient denies any tobacco usage or history of. - Family history:: not pertinent. - Hospitalizations: : No recent hospitalization is reported. ROS: 11:00 Constitutional: Negative for fever, chills, and weight loss, Eyes: Negative for injury, rn pain, redness, and discharge, Neck: Negative for injury, pain, and swelling, Cardiovascular: Negative for palpitations, and edema, Respiratory: Negative for shortness of breath, cough, wheezing, and pleuritic chest pain, Abdomen/GI: Negative for abdominal pain,vomiting, diarrhea, and constipation, Back: Negative for injury and pain, : Negative for injury, bleeding, discharge, and swelling, MS/Extremity: Negative for injury and deformity, Skin: Negative for injury, rash, and discoloration, Neuro: Negative for headache, numbness, tingling, and seizure. Exam: 11:00 Constitutional: This is a well developed, well nourished patient who is awake, alert, rn and in no acute distress. Head/Face: Normocephalic, atraumatic. Eyes: Periorbital areas with no swelling, redness, or edema. Cardiovascular: Regular rate and rhythm. No pulse deficits. Respiratory: No increased work of breathing, no retractions or nasal flaring. Abdomen/GI: Soft, non-tender Skin: Warm, dry MS/ Extremity: Pulses equal, no cyanosis. Left lower extremity with increased circumference compared to right lower extremity but patient states at baseline. Neuro: Awake and alert, GCS 15 Vital Signs: 10:24 Weight 122.47 kg; Height 5 ft. 5 in. (165.10 cm); Pain 10/10; ll1 10:26 Resp 18; Temp 98.2; ll1 10:35 BP 145 / 75; Pulse 92; Pulse Ox 96% on R/A; sv 11:44 BP 132 / 77; Pulse 93; Pulse Ox 97% ; hb 12:45 BP 144 / 83; Pulse 91; Resp 18; Pulse Ox 99% ; sv 13:55 BP 144 / 83; Pulse 92; Resp 17; Pulse Ox 99% ; hb 14:26 BP 132 / 66; Pulse 89; Resp 16; Pulse Ox 99% ; sv 15:45 BP 150 / 74; Pulse 86; Resp 16; Pulse Ox 100% ; sv 10:24 Body Mass Index 44.93 (122.47 kg, 165.10 cm) ll1 MDM: 10:25 Patient medically screened. rn 12:49 Differential diagnosis: acute myocardial infarction, acute pericarditis, anxiety, rn coronary artery disease chest wall pain, costochondritis, pleurisy, pneumothorax, stable angina, unstable angina. HEART Score: History: Moderately Suspicious (1), ECG: Non specific repolarization disturbance / LBTB / PM (1), Age: > 45 and < 65 years (1), Risk Factors: 1 or 2 risk factors (1), Troponin: < or = 1 x Normal Limit (0), Total Score = 4. Data reviewed: vital signs, nurses notes, lab test result(s), EKG, radiologic studies, plain films, and as a result, I will admit patient. Data interpreted: alarm security or surveillance monitor: rate is 93 beats/min, rhythm is normal sinus rhythm, regular, with no ectopy, Interpretation: normal rate, normal rhythm, Pulse oximetry: on room air is 97 %. Interpretation: normal. Counseling: I had a detailed discussion with the patient and/or guardian regarding: the historical points, exam findings, and any diagnostic results supporting the discharge/admit diagnosis, lab results, radiology results, the need for further work-up and treatment in the hospital. Admission orders: after a detailed discussion of the patient's condition and case, the admit orders are written by me. ED course: Patient mildly improved. Troponin negative. Nonspecific T wave inversions in lateral leads. Will admit to hospitalist service for cardiac evaluation. Patient states allergic to iodine and thus CT PE protocol not ordered. Already on Eliquis and oxygen 97%.. 12/23 10:33 Order name: Basic Metabolic Panel rn 12/23 10:33 Order name: CBC with Diff; Complete Time: 12:16 rn 12/23 10:33 Order name: NT PRO-BNP; Complete Time: 12:16 rn 12/23 10:33 Order name: PT-INR; Complete Time: 11:24 rn 12/23 10:33 Order name: Troponin (emerg Dept Use Only); Complete Time: 12:16 rn 12/23 10:33 Order name: Basic Metabolic Panel; Complete Time: 12:16 EDMS 12/23 10:33 Order name: XRAY Chest (1 view); Complete Time: 11:24 rn 12/23 11:45 Order name: Manual Differential; Complete Time: 12:16 EDMS 12/23 13:54 Order name: COVID-19 : Document "Date of Symptom Onset" if Symptomatic. sv 12/23 14:42 Order name: CORONAVIRUS EDAK 12/23 15:46 Order name: SARS-COV-2 RT PCR EDMS 12/23 10:33 Order name: EKG; Complete Time: 10:33 rn 12/23 10:33 Order name: Cardiac monitoring; Complete Time: 10:36 rn 12/23 10:33 Order name: EKG - Nurse/Tech; Complete Time: 10:36 rn 12/23 10:33 Order name: IV Saline Lock; Complete Time: 10:36 rn 12/23 10:33 Order name: Labs collected and sent; Complete Time: 10:36 rn 12/23 10:33 Order name: O2 Per Protocol; Complete Time: 10:36 rn 12/23 10:33 Order name: O2 Sat Monitoring; Complete Time: 10:36 rn 12/23 13:48 Order name: Diet Ada 1800 Ney; Complete Time: 13:48 hb Administered Medications: 10:52 Drug: Phenergan (promethazine) 12.5 mg Route: IVP; Site: PICC; sv 11:30 Follow up: Response: No adverse reaction sv 10:54 Drug: Dilaudid (HYDROmorphone) 1 mg {Note: rass2.} Route: IVP; Site: PICC; sv 11:30 Follow up: Response: No adverse reaction; No change in condition; RASS: Agitated (+2) sv 12:05 Drug: Potassium Chloride 10 mEq Route: IV; Rate: calculated rate; Site: PICC; sv 13:05 Follow up: Response: No adverse reaction; IV Status: Completed infusion; IV Intake: 50mlsv 12:22 Drug: Dilaudid (HYDROmorphone) 1 mg {Note: rass2.} Route: IVP; Site: PICC; sv 13:00 Follow up: Response: No adverse reaction; RASS: Restless (+1) sv 15:05 CANCELLED (Physician Discretion): morphine 4 mg IVP once; RASS on ADMIN: Combtv4, Very sv Agttd3, Agttd2, Rstlss1, AlertClm0, Drwsy-1, Lt Sdtn-2, Mod Sdtn-3, Dp Sdtn-4, UnArsble-5 15:05 CANCELLED (Physician Discretion): Zofran (Ondansetron) 4 mg IVP once; over 2 minutes sv Disposition Summary: 12/23/20 12:51 Hospitalization Ordered Hospitalization Status: Observation rn Provider: Hayder Hastings rn Location: Telemetry/MedSurg (observation) rn Condition: Stable rn Problem: new rn Symptoms: have improved rn Bed/Room Type: Standard rn Room Assignment: 230(12/23/20 14:43) eb Diagnosis - Chest pain, unspecified rn Forms: - Medication Reconciliation Form rn - SBAR form rn Signatures: Dispatcher [employer] Kiersten Dowd RN RN sv Nieto, Roman, MD MD rn Botello, Elizabeth eb Lewis, Lynsay, RN RN ll1 Corrections: (The following items were deleted from the chart) 14:43 12:51 rn eb 15:05 10:35 morphine 4 mg IVP once; RASS on ADMIN: Combtv4, Very Agttd3, Agttd2, Rstlss1, sv AlertClm0, Drwsy-1, Lt Sdtn-2, Mod Sdtn-3, Dp Sdtn-4, UnArsble-5 ordered. rn 15:05 10:35 Zofran (Ondansetron) 4 mg IVP once; over 2 minutes ordered. rn sv 15:05 10:54 Zofran (Ondansetron) 4 mg IVP once; over 2 minutes given. sv sv 15:05 10:54 morphine 4 mg IVP once; RASS on ADMIN: Combtv4, Very Agttd3, Agttd2, Rstlss1, sv AlertClm0, Drwsy-1, Lt Sdtn-2, Mod Sdtn-3, Dp Sdtn-4, UnArsble-5 given. sv 15:05 15:03 Zofran (Ondansetron) 4 mg IVP once; over 2 minutes ordered. sv sv 15:05 15:03 morphine 4 mg IVP once; RASS on ADMIN: Combtv4, Very Agttd3, Agttd2, Rstlss1, sv AlertClm0, Drwsy-1, Lt Sdtn-2, Mod Sdtn-3, Dp Sdtn-4, UnArsble-5 ordered. sv
--- NOTE | 2020-12-23 12:51 | ER ---
Nurse's Notes [facility] Name: Sade Galdamez Age: 60 yrs Sex: Female : 1960 Arrival Date: 12/23/2020 Time: 10:15 Bed 8 Private MD: Gisele Brewer H Diagnosis: Chest pain, unspecified Presentation: 12/23 10:24 Chief complaint: Patient states: CP since 7 am. No cough or fever. States she had chemo ll1 last week. Coronavirus screen: Vaccine status: Patient reports receiving the 2nd dose of the covid vaccine. Client denies travel out of the [place] in the last 14 days. At this time, the client does not indicate any symptoms associated with coronavirus-19. Ebola Screen: Patient denies travel to an Ebola-affected area in the 21 days before illness onset. Initial Sepsis Screen: Does the patient meet any 2 criteria? No. Patient's initial sepsis screen is negative. Does the patient have a suspected source of infection? No. Patient's initial sepsis screen is negative. Risk Assessment: Do you want to hurt yourself or someone else? Patient reports no desire to harm self or others. Onset of symptoms was December 23, 2020. 10:24 Method Of Arrival: Wheelchair ll1 10:24 Acuity: ABDIRIZAK 3 ll1 Historical: - Allergies: 10:23 Iodine; ll1 - PMHx: 10:23 breast cancer; chemotherapy; Hypertension; Tumor to groin area; ll1 - PSHx: 10:23 ovi mastectomy; hysterectomy; ll1 - Immunization history:: Client reports receiving the 2nd dose of the Covid vaccine, Flu vaccine is not up to date. - Social history:: Smoking status: Patient denies any tobacco usage or history of. - Family history:: not pertinent. - Hospitalizations: : No recent hospitalization is reported. Screenin:25 Abuse screen: Denies threats or abuse. Tuberculosis screening: No symptoms or risk ll1 factors identified. 10:30 Nutritional screening: No deficits noted. Fall Risk None identified. sv Assessment: 10:30 General: Appears in no apparent distress. uncomfortable, obese, well developed, sv Behavior is calm, cooperative, appropriate for age. Pain: Complains of pain in chest Pain does not radiate. Pain currently is 10 out of 10 on a pain scale. Quality of pain is described as sharp, Pain began gradually. Neuro: Level of Consciousness is awake, alert, obeys commands, Oriented to person, place, time, situation, Moves all extremities. Gait is steady. Cardiovascular: Patient's skin is warm and dry. Respiratory: Airway is patent Respiratory effort is even, unlabored, Respiratory pattern is regular, symmetrical. Derm: Skin is pink, warm \\T\\ dry. Musculoskeletal: Swelling present in left leg Pt states that the swelling is normal since being diagnosed with the cancer in her L groin. 11:44 Reassessment: Patient appears in no apparent distress at this time. Patient and/or hb family updated on plan of care and expected duration. Pain level reassessed. Patient is alert, oriented x 3, equal unlabored respirations, skin warm/dry/pink. 12:15 Reassessment: Patient appears in no apparent distress at this time. No changes from sv previously documented assessment. Patient and/or family updated on plan of care and expected duration. Pain level reassessed. Patient is alert, oriented x 3, equal unlabored respirations, skin warm/dry/pink. Informed Dr Richardson of pt's pain. Medication order received. Patient states symptoms have not improved. 12:45 Reassessment: Patient appears in no apparent distress at this time. Patient and/or hb family updated on plan of care and expected duration. Pain level reassessed. Patient is alert, oriented x 3, equal unlabored respirations, skin warm/dry/pink. 13:55 Reassessment: Patient appears in no apparent distress at this time. Patient and/or hb family updated on plan of care and expected duration. Pain level reassessed. Patient is alert, oriented x 3, equal unlabored respirations, skin warm/dry/pink. Vital Signs: 10:24 Weight 122.47 kg; Height 5 ft. 5 in. (165.10 cm); Pain 10/10; ll1 10:26 Resp 18; Temp 98.2; ll1 10:35 BP 145 / 75; Pulse 92; Pulse Ox 96% on R/A; sv 11:44 BP 132 / 77; Pulse 93; Pulse Ox 97% ; hb 12:45 BP 144 / 83; Pulse 91; Resp 18; Pulse Ox 99% ; sv 13:55 BP 144 / 83; Pulse 92; Resp 17; Pulse Ox 99% ; hb 14:26 BP 132 / 66; Pulse 89; Resp 16; Pulse Ox 99% ; sv 15:45 BP 150 / 74; Pulse 86; Resp 16; Pulse Ox 100% ; sv 10:24 Body Mass Index 44.93 (122.47 kg, 165.10 cm) ll1 ED Course: 10:15 Patient arrived in ED. mr 10:16 Osman LizethDO Maria T is Private Physician. mr 10:23 Arm band placed on Patient placed in an exam room, on a stretcher. ll1 10:24 Nolberto Richardson MD is Attending Physician. rn 10:25 Triage completed. ll1 10:25 ekg monitor tech on. Pulse ox on. NIBP on. ll1 10:25 Patient has correct armband on for positive identification. Bed in low position. Call ll1 light in reach. Side rails up X 1. 10:27 EKG done, by ED staff, reviewed by Nolberto Richardson MD. sv 10:30 Accessed PICC line. Blood collected. Clean \\T\\ dry. Dressing intact. Good blood return. sv Flushes easily. Patient maintains SpO2 saturation greater than 95% on room air. 10:32 Kiersten Rivera, SILAS is Primary Nurse. sv 10:36 Basic Metabolic Panel Sent. sv 10:46 XRAY Chest (1 view) In Process Unspecified. EDMS 12:50 Hayder Hastings is Hospitalizing Provider. rn 15:06 CORONAVIRUS Sent. sv 15:06 COVID-19 : Document "Date of Symptom Onset" if Symptomatic. Sent. sv 15:30 No provider procedures requiring assistance completed. Patient admitted, IV remains in sv place. intact. Administered Medications: 10:52 Drug: Phenergan (promethazine) 12.5 mg Route: IVP; Site: PICC; sv 11:30 Follow up: Response: No adverse reaction sv 10:54 Drug: Dilaudid (HYDROmorphone) 1 mg {Note: rass2.} Route: IVP; Site: PICC; sv 11:30 Follow up: Response: No adverse reaction; No change in condition; RASS: Agitated (+2) sv 12:05 Drug: Potassium Chloride 10 mEq Route: IV; Rate: calculated rate; Site: PICC; sv 13:05 Follow up: Response: No adverse reaction; IV Status: Completed infusion; IV Intake: 50mlsv 12:22 Drug: Dilaudid (HYDROmorphone) 1 mg {Note: rass2.} Route: IVP; Site: PICC; sv 13:00 Follow up: Response: No adverse reaction; RASS: Restless (+1) sv 15:05 CANCELLED (Physician Discretion): morphine 4 mg IVP once; RASS on ADMIN: Combtv4, Very sv Agttd3, Agttd2, Rstlss1, AlertClm0, Drwsy-1, Lt Sdtn-2, Mod Sdtn-3, Dp Sdtn-4, UnArsble-5 15:05 CANCELLED (Physician Discretion): Zofran (Ondansetron) 4 mg IVP once; over 2 minutes sv Intake: 13:05 IV: 50ml; Total: 50ml. sv Outcome: 12:51 Decision to Hospitalize by Provider. rn 15:30 Admitted to Tele accompanied by tech, via wheelchair, room 215, with chart, Report sv called to Korin RN 15:30 Condition: stable 15:30 Instructed on the need for admit. 16:06 Patient left the ED. Signatures: Dispatcher [employer] Kiersten Dowd RN RN Awad Kinga mr Nolberto Richardson MD MD rn Smirch, Shelby, RN RN Gill Pierre RN RN hb Lewis, Lynsay, RN RN ll1 Corrections: (The following items were deleted from the chart) 15:03 10:52 Zofran (Ondansetron) 4 mg IVP in PICC sv sv 15:03 10:54 morphine 4 mg IVP in PICC sv sv 15:03 12:00 Response: No adverse reaction sv sv 15:03 11:20 Response: No adverse reaction; No change in condition sv sv
[2020-12-23] MEDS ORDERED: ACETAMINOPHEN 500 MG TAB PO PRN (15:02)
[2020-12-23] MEDS: NA CHLORIDE 0.9% 1,000 ML IV SCH (16:09)
[2020-12-23 16:18] VITALS: BMI 44.9
[2020-12-23] MEDS ORDERED: HYDROMORPHONE ORAL 2 MG TAB PO PRN (16:36)
[2020-12-23] MEDS: MORPHINE ER 100 MG TABLET PO SCH (16:45)
[2020-12-23] MEDS ORDERED: POTASSIUM CL 40 MEQ in NA CHLORIDE 0.9% 500 ML IV SCH (17:00)
[2020-12-23] MEDS: HYDROMORPHONE ORAL 2 MG TAB PO PRN ×2 (17:03→21:15)
[2020-12-23] MEDS: PROMETHAZINE INJ 25 MG/ML AMP IV PRN ×2 (17:05→21:16)
[2020-12-23 17:48] LABS: Urine Appearance CLEAR (Clear); Urine Bilirubin NEGATIVE (Negative); Urine Blood TRACE (Negative); Urine Color YELLOW (Yellow); Urine Glucose NEGATIVE (Negative); Urine Protein 2+ (Negative); Urine Urobilinogen 0.2 mg/dL (0.2-1.0)
[2020-12-23 17:49] LABS: Urine Microscopic Reflex ORDER UMIC
--- NOTE | 2020-12-23 17:53 | P.HP ---
Certification for Inpatient With expected LOS: >2 Midnights Patient will require the following post-hospital care: None Practitioner: I am a practitioner with admitting privileges, knowledge of patient current condition, hospital course, and medical plan of care. Services: Services provided to patient in accordance with Admission requirements found in Title 42 Section 412.3 of the Code of Federal Regulations Patient History Date of Service: 12/23/20 Primary Care Provider: Osman Reason for admission: Chest pain History of Present Illness: Chest Single View - 12/23/2020 10:46 am CLINICAL HISTORY: CHEST PAIN COMPARISON: Chest Single View dated 12/08/2020; Chest Single View dated 12/06/2020; Chest Single View dated 10/27/2020; Chest Single View dated 08/20/2020 FINDINGS: The lungs are grossly clear. The heart is mildly enlarged in size. Left PICC line has its tip in the region of atrial caval junction. Patient labs remarkable for white blood count of 26.1. This is most likely related to her chemotherapy. Hemoglobin is 8.5, hematocrit 26.7, platelets 257. Her electrolytes reflect a low potassium at 2.8, chloride of 115 carbon dioxide of 18. Her BNP is 497. The patient is being treated for sarcoma in her left groin since this last April. Her last chemo was on . She had a previous episode of chest pain, dissimilar to this episode, 3 to 4 weeks ago. This was related to her low potassium. At 7 AM this morning she developed a 10 out of 10 chest pain located just slightly to the left of her sternum. The patient describes it as a brain freeze type pain. She has no shortness of breath. The pain has continued to this point and is currently rated at 9 out of 10. Because of the significant pain from the sarcoma in her left groin she has been on pain medications at high dose and for some time. Currently she is reasonably comfortable. Her EKG did show T wave inversion. Allergies iopamidol [From [id number]] Allergy (Verified 12/07/20 03:52) Shortness of breath Home medications list reviewed: Yes Home Medications: Apixaban [Eliquis] 10 mg PO BID 12/07/20 Folic Acid 1 mg PO DAILY 12/07/20 Gabapentin [Neurontin] 800 mg PO BID 12/07/20 Hydromorphone [Dilaudid*] 4 mg PO Q4HP PRN 12/07/20 Morphine Sulfate [Morphine Sulfate ER] 100 mg PO Q12H 12/07/20 OLANZapine [Olanzapine] 2.5 mg PO BEDTIME PRN PRN 12/07/20 Potassium Chloride [K-Dur] 20 meq PO DAILY 90 Days #90 tab.er.prt 12/10/20 Promethazine Tab [Phenergan*] 25 mg PO Q4H PRN 12/23/20 - Past Medical/Surgical History Has patient received pneumonia vaccine in the past: No Diabetic: No -: breast cancer -: liposarcoma -: HTN (resolved) -: mastectomy -: hysterectomy -: R hip replacement Psychosocial/ Personal History: Retired, lives at home by self - Family History Mother -: Diabetes Father -: Cancer Notes: lung cancer Brother -: Hypertension, Diabetes Sister -: Liver disease Notes: cirrhosis - Social History Smoking Status: Never smoker Alcohol use: No CD- Drugs: No Caffeine use: Yes Place of Residence: Home Review of Systems 10-point ROS is otherwise unremarkable General: Other (Occ tension headaches) Eyes: Unremarkable ENT: Unremarkable Respiratory: Unremarkable Cardiovascular: Chest Pain Gastrointestinal: Nausea, Constipation Genitourinary: Unremarkable Musculoskeletal: Other (Sarcoma left leg) Integumentary: Unremarkable Neurological: Unremarkable Lymphatics: Other (Left leg very swollen due to sarcoma) Physical Examination - Vital Signs Temperature: 98.2 F Blood Pressure: 150/74 Pulse: 86 Respirations: 16 Pulse Ox (%): 100 - Physical Exam General: Alert, Oriented x3, Mild distress HEENT: Atraumatic, Normocephalic Neck: Supple, JVD not distended Respiratory: Clear to auscultation bilaterally, Normal air movement, Other (very faint expiratory wheeze) Cardiovascular: No edema, Normal pulses, Regular rate/rhythm Capillary refill: <2 Seconds Gastrointestinal: Soft and benign, Non-distended Musculoskeletal: No warmth, Other (Sarcoma left groin area. Left leg very swollen) Integumentary: No breakdown, No significant lesion Neurological: Normal speech, Normal tone, Sensation intact Lymphatics: Other (Sarcoma blocking drainage) External genitalia: Deferred Rectal: Deferred - Studies Laboratory Data (last 24 hrs) 12/23/20 10:30: PT 14.5 H, INR 1.26 12/23/20 10:30: WBC 26.10 H* D, Hgb 8.5 L, Hct 26.7 L, Plt Count 257 D 12/23/20 10:30: Sodium 141, Potassium 2.8 L*, BUN 17, Creatinine 1.28, Glucose 92 Assessment and Plan - Plan Assessment: Atypical chest pain Sarcoma Plan: Atypical chest pain: Monitor, trend troponin and cardiac labs, Cardiology consult, replace electrolytes, O2 as necessary, pain medication. Sarcoma: non-contributory. Continue medications. DVT PPx: Eliquis CODE STATUS: DNR Discharge Plan: Home Plan to discharge in: Unknown - Advance Directives Does patient have a Living Will: No Does patient have a Durable POA for Healthcare: No - Code Status/Comfort Care Code Status: Do Not Attempt Resuscitat Critical Care: No Time Spent Managing Pts Care (In Minutes): 70
[2020-12-23 18:04] LABS: Urine Bacteria <20 /HPF (<20); Urine RBC <5 /HPF (NONE SEEN); Urine Urothelial Cells <5 /HPF (NONE SEEN)
[2020-12-23 18:55] LABS: Thyroid Stimulating Hormone 1.52 uIU/mL (0.360-3.740)
[2020-12-23] MEDS: APIXABAN 5 MG TABLET PO SCH (21:38)
[2020-12-23] MEDS: GABAPENTIN 400 MG CAP PO SCH (21:39)
[2020-12-24] MEDS: HYDROMORPHONE ORAL 2 MG TAB PO PRN ×3 (00:47→09:52)
[2020-12-24] MEDS: ONDANSETRON 4 MG/2 ML VIAL IV PRN ×4 (00:48→20:50)
[2020-12-24] MEDS ORDERED: KCL 20 MEQ/100 mL IVPB 20 MEQ/100 ML BAG IV ONE (01:09)
[2020-12-24] MEDS: KCL 20 MEQ/100 mL IVPB 20 MEQ/100 ML BAG IV SCH ×3 (03:19→06:18)
[2020-12-24] MEDS: NA CHLORIDE 0.9% 1,000 ML IV SCH ×2 (03:20→11:02)
[2020-12-24] MEDS: PROMETHAZINE INJ 25 MG/ML AMP IV PRN ×4 (03:40→23:22)
[2020-12-24] MEDS: MORPHINE ER 100 MG TABLET PO SCH (04:45)
[2020-12-24] MEDS: GABAPENTIN 400 MG CAP PO SCH ×2 (08:09→20:49)
[2020-12-24] MEDS: POTASSIUM CL SA 10 MEQ TAB PO SCH ×2 (08:09→08:14)
[2020-12-24] MEDS: APIXABAN 5 MG TABLET PO SCH ×2 (08:10→20:49)
[2020-12-24] MEDS: FOLIC ACID 1 MG TABLET PO SCH (08:10)
[2020-12-24] MEDS: OLANZapine 2.5 MG TAB PO PRN ×2 (08:27→20:48)
[2020-12-24] MEDS: POTASSIUM 25 MEQ EFFERV TAB PO SCH (08:27)
[2020-12-24] MEDS: MORPHINE SULFATE 100 MG PO SCH ×2 (10:37→22:37)
[2020-12-24] MEDS ORDERED: HYDROMORPHONE ORAL 2 MG TAB PO PRN (11:28)
[2020-12-24 11:56] LABS: Absolute Lymphocytes (CBC) 0.4 K/uL (0.7-4.9); Basophils % 0.6 % (0-1.3); Hematocrit 25.2 % (36.0-45.0); Lymphocytes % 2.9 % (15.3-44.8); RBC Red Blood Cell Count 3.29 M/uL (3.86-4.86)
[2020-12-24 12:10] LABS: Bilirubin Total 0.4 mg/dL (0.2-1.0); Magnesium 1.9 mg/dL (1.8-2.4); Protein, Total 6.9 g/dL (6.4-8.2)
[2020-12-24] MEDS ORDERED: POTASSIUM 25 MEQ EFFERV TAB PO ONE (12:16)
[2020-12-24 13:02] LABS: Anisocytosis 2+; Blood Morphology Comment NOTED (NOT SEEN); Platelet Estimate ADEQ
[2020-12-24 13:03] LABS: Hypochromasia 1+
[2020-12-24] MEDS: HYDROMORPHONE HCL 2 MG/ML inj IV PRN ×3 (13:04→20:49)
--- NOTE | 2020-12-24 14:46 | P.PN ---
Subjective Date of Service: 12/24/20 Primary Care Provider: Osman Chief Complaint: Chest pain Patient complaining of left hip pain. Pain is related to her left thigh/hip Liposarcoma. Physical Examination - Vital Signs Temperature: 97.8 F Blood Pressure: 137/69 Pulse: 86 Respirations: 17 Pulse Ox (%): 100 - Physical Exam General: Alert, In no apparent distress, Oriented x3 HEENT: Mucous membr. moist/pink Neck: Supple, JVD not distended Respiratory: Clear to auscultation bilaterally, Normal air movement Cardiovascular: Regular rate/rhythm Gastrointestinal: Soft and benign, Non-distended, No tenderness Musculoskeletal: Swelling (Left lower extremities swelling) Integumentary: No rashes Neurological: Normal strength at 5/5 x4 extr Assessment And Plan - Current Problems (Diagnosis) (1) Chest pain Current Visit: No Status: Acute Qualifiers: Chest pain type: unspecified Qualified Code(s): R07.9 - Chest pain, unspecified (2) Cancer related pain Current Visit: Yes Status: Acute (3) Leukocytosis Current Visit: Yes Status: Acute (4) Anemia Current Visit: No Status: Acute Qualifiers: Anemia type: unspecified type Qualified Code(s): D64.9 - Anemia, unspecified (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 ACS ruled Chest pain likely musculoskeletal. Patient also with cancer-related pain. She states she developed acute pain and hypokalemia after chemotherapy. Pain management with IV and po opioids. Leukocytosis likely secondary to hemoconcentration. It has improved with IV hydration. Continue IV fluid. Hypokalemia being corrected. Possible discharge in a.m.
[2020-12-24] MEDS: NS KCL 20MEQ 20 MEQ/1,000 ML BAG IV SCH (15:00)
--- NOTE | 2020-12-24 18:29 | CON ---
Date of Consultation: 12/24/2020 Reason For Consultation: Chest pain. History Of Present Illness: This is a 60-year-old female, known with history of breast cancer and sa rcoma that was diagnosed recently. She was started on chemotherapy and preparation for surgery for t he sarcoma, presented with chest pain, retrosternal, pressure-like, along with nausea and no radiatio n, lasted for about an hour and a half and then resolved, then she had another episode this morning. The patient is not known to have any history of cardiac disease. 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 Medications: Refer reconciliation sheet for detailed list. Allergies: IOPAMIDOL Past Surgical History: Mastectomy, hysterectomy, and hip replacement. Family History: No premature coronary artery disease. There is history of lung cancer in the father . Social History: Does not smoke or drink. Does not use any drugs. Review of Systems: All systems reviewed and they were negative except for mentioned in HPI. Physical Examination: Vital Signs: Reviewed. Head and Neck: Pupils are equal and reactive to light. Intact eye movements. No JVD. No cervical adenopathy. Neck is supple. Thyroid not enlarged. Lungs: Clear to auscultation bilaterally. No rhonchi, rales, or crackles. No accessory muscle use. Heart: Regular rate and rhythm. No extra sounds. Abdomen: Soft, nontender. Bowel sounds positive. No organomegaly. No sinus rebound. Extremities: No edema, clubbing, or cyanosis. Intact pulses. Skin: No rashes. Neurologic: Alert, awake, and oriented x3. No acute focal deficits appreciated. Investigations: Cardiac enzymes x3 are negative. Potassium was 2.6. Assessment And Recommendations: Chest pain. She continues to have episodes of chest pain even thoug h the troponin is negative. I recommend to do a Lexiscan nuclear stress test to further evaluate for ischemia and the further recommendations accordingly and restart the patient on baby aspirin. SR/MODL Voice ID: [id number] Report ID: [id number]
[2020-12-25] MEDS: HYDROMORPHONE HCL 2 MG/ML inj IV PRN ×5 (00:50→18:57)
[2020-12-25] MEDS: ONDANSETRON 4 MG/2 ML VIAL IV PRN ×2 (00:51→16:27)
[2020-12-25] MEDS: PROMETHAZINE INJ 25 MG/ML AMP IV PRN ×3 (04:52→18:42)
[2020-12-25] MEDS: NS KCL 20MEQ 20 MEQ/1,000 ML BAG IV SCH (04:53)
[2020-12-25 05:24] LABS: Absolute Lymphocytes (CBC) 0.5 K/uL (0.7-4.9); Basophils % 0.9 % (0-1.3); Hematocrit 22.6 % (36.0-45.0); Lymphocytes % 9.9 % (15.3-44.8); MPV 8.3 fL (7.6-11.3); RBC Red Blood Cell Count 2.94 M/uL (3.86-4.86)
[2020-12-25 05:45] LABS: Albumin 2.8 g/dL (3.4-5.0); Bilirubin Total 0.3 mg/dL (0.2-1.0); Magnesium 1.9 mg/dL (1.8-2.4); Protein, Total 6.6 g/dL (6.4-8.2)
[2020-12-25] MEDS ORDERED: REGADENOSON 0.4 MG/5 ML SYR IV ONE (08:24)
[2020-12-25] MEDS ORDERED: POTASSIUM CL 40 MEQ in NA CHLORIDE 0.9% 500 ML IV SCH (09:00)
--- NOTE | 2020-12-25 10:05 | RAD REPORT ---
EXAM DESCRIPTION: NM - Rest Stress Cardiac Imaging - 12/25/2020 9:57 am CLINICAL HISTORY: Chest pain COMPARISON: None. TECHNIQUE: The patient was administered 10.6 mCi of Tc 99m Sestamibi prior to resting SPECT imaging of the heart. The patient was then administered 31.8 mCi of Tc 99m Sestamibi following exercise or ph armacologic stress. Multiplanar SPECT images were reviewed. FINDINGS: The end diastolic volume is 124 ml, the end systolic volume is 54 ml, and the ejection fra ction is 56 %. No stress-induced ischemic changes identifiable. There is a large area of marked reduction in activit y involving the entire inferior wall from base to apex. Large area of inferior wall scarring is favor ed over attenuation artifact from the diaphragm. Correlation can be made with EKG findings or history . No other area of scarring identifiable. IMPRESSION: No stress-induced ischemic change identifiable. Large fixed defect involving the inferior wall from base to apex is believed to be large area of infe rior wall scarring rather than attenuation artifact. Correlation is needed with EKG findings and hist ory. End-diastolic volume is enlarged at 124 mL with a normal 56% EF.
[2020-12-25] MEDS: MORPHINE SULFATE 100 MG PO SCH (10:37)
[2020-12-25] MEDS: POTASSIUM 25 MEQ EFFERV TAB PO SCH (10:45)
[2020-12-25] MEDS: APIXABAN 5 MG TABLET PO SCH ×2 (10:45→20:59)
[2020-12-25] MEDS: GABAPENTIN 400 MG CAP PO SCH ×2 (10:47→20:59)
[2020-12-25] MEDS: FOLIC ACID 1 MG TABLET PO SCH (10:47)
[2020-12-25] MEDS ORDERED: NA CHLORIDE 0.9% 250 ML IV SCH (11:00)
--- NOTE | 2020-12-25 12:22 | PN ---
The patient was admitted and seen by Dr. Hastings and Dr. Dooley for chest pain this morning. She ralph ed any chest pain. Vital signs were stable. She was afebrile. She is in sinus rhythm. She is awai ting a Lexiscan today. We will see what that shows before making further decision. No change in med ical therapy for now. STEFANI/MALACHI Voice ID: [id number] Report ID: [id number]
[2020-12-25] MEDS ORDERED: ALTEPLASE 2 MG/VIAL IV SCH (13:00)
--- NOTE | 2020-12-25 14:29 | TREADPHA ---
DX: CHEST PAIN Date of Study: 12/25/2020 Ht: 5' 5 " Wt: 270 lb 0 oz Consulting Physician: MENA MEDICATIONS: NEURONTIN, ELIQUIS, DIALAUDID HISTORY: CANCER AND SARCOMA. POSTIVE CARDIAC FAMILY HISTORY. PHYSICIAL EXAMINATION: RESTING B.P.: 14/76 RESTING H.R.: 84 RESTING EKG: SINUS WITH DIFFUSE T WAVE DECREASED INFEROLATERAL LEADS. PROTOCOL: LEXISCAN EXERCISE TIME: 3:30 B.P. AT PEAK STRESS: 138/74 IMPRESSION: LEXISCAN STRESS TEST PERFORMED. CARDIOLITE INJECTED PER PROTOCOL. NO SUPRAVENTRICULAR OR VENTRICULAR TACHYCARDIA. NO EKG CHANGES WITH LEXISCAN.
--- NOTE | 2020-12-25 16:15 | P.DS ---
Admission Date: 12/23/20 Discharge Date: 12/25/20 Primary Care Provider: Osman Disposition: ROUTINE DISCHARGE Discharge Condition: FAIR Reason for Admission: Chest pain - Problems (1) Chest pain Current Visit: No Status: Acute Qualifiers: Chest pain type: unspecified Qualified Code(s): R07.9 - Chest pain, unspecified (2) Cancer related pain Current Visit: Yes Status: Acute (3) Leukocytosis Current Visit: Yes Status: Acute (4) Anemia Current Visit: No Status: Acute Qualifiers: Anemia type: unspecified type Qualified Code(s): D64.9 - Anemia, unspecified (5) Liposarcoma Current Visit: No Status: Chronic Brief History of Present Illness: 60-year-old woman with a 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 She had a previous episode of chest pain, similar to this episode, 3 to 4 weeks ago. She feels the chest pain is related to her low potassium. She denied shortness of breath. Her EKG did show T wave inversion. Initial troponin negative. Chest x-ray demonstrated clear lungs. Patient was reporting increased pain in her left thigh. She was admitted for further management. Hospital Course: Patient admitted to the medical floor. Troponin trended negative. She was seen by cardiology Dr. Dooley who ordered nuclear stress test. Nuclear stress test showed large inferior defect but no stress induced ischemia. Her acute pain was managed with IV hydromorphone. Also continued her home dose extended-release morphine. Patient's hemoglobin dropped to 7.2 and was given a unit of PRBC. Anemia likely secondary to chemotherapy. Patient cleared for discharge per cardiology. She is on Eliquis which was continued during the hospital stay. No changes made in her home medications on discharge. Vital Signs/Physical Exam: Temp Pulse Resp BP Pulse Ox 98.6 F 87 14 140/70 94 12/25/20 08:00 12/25/20 08:00 12/25/20 08:00 12/25/20 08:00 12/25/20 08:00 General: Alert, In no apparent distress HEENT: Mucous membr. moist/pink Neck: JVD not distended Respiratory: Clear to auscultation bilaterally, Normal air movement Cardiovascular: Regular rate/rhythm, Normal S1 S2 Gastrointestinal: Soft and benign, Non-distended Musculoskeletal: Other (Left thigh is swollen compared to the right.) Integumentary: No rashes Neurological: Normal strength at 5/5 x4 extr Laboratory Data at Discharge: WBC 4.90 K/uL (4.3-10.9) D 12/25/20 05:00 Hgb 7.2 g/dL (12.0-15.0) L 12/25/20 05:00 Hct 22.6 % (36.0-45.0) L 12/25/20 05:00 Plt Count 136 K/uL (152-406) L D 12/25/20 05:00 PT 14.5 SECONDS (9.5-12.5) H 12/23/20 10:30 INR 1.26 12/23/20 10:30 Sodium 145 mmol/L (136-145) 12/25/20 05:00 Potassium 3.0 mmol/L (3.5-5.1) L 12/25/20 05:00 BUN 10 mg/dL (7-18) 12/25/20 05:00 Creatinine 0.97 mg/dL (0.55-1.3) 12/25/20 05:00 Glucose 91 mg/dL (74-106) 12/25/20 05:00 Magnesium 1.9 mg/dL (1.8-2.4) 12/25/20 05:00 Total Bilirubin 0.3 mg/dL (0.2-1.0) 12/25/20 05:00 AST 6 U/L (15-37) L 12/25/20 05:00 ALT 13 U/L (12-78) 12/25/20 05:00 Alkaline Phosphatase 98 U/L (45-117) 12/25/20 05:00 Troponin I 0.02 ng/mL (0.0-0.045) 12/23/20 23:21 Triglycerides 101 mg/dL (<150) 12/24/20 11:37 Cholesterol 179 mg/dL (<200) 12/24/20 11:37 HDL Cholesterol 70 mg/dL (40-60) H 12/24/20 11:37 Cholesterol/HDL Ratio 2.56 12/24/20 11:37 Home Medications: Apixaban [Eliquis] 10 mg PO BID 12/07/20 Folic Acid 1 mg PO DAILY 12/07/20 Gabapentin [Neurontin] 800 mg PO BID 12/07/20 Hydromorphone [Dilaudid*] 4 mg PO Q4HP PRN 12/07/20 Morphine Sulfate [Morphine Sulfate ER] 100 mg PO Q12H 12/07/20 OLANZapine [Olanzapine] 2.5 mg PO BEDTIME PRN PRN 12/07/20 Potassium Chloride [K-Dur] 20 meq PO DAILY 90 Days #90 tab.er.prt 12/10/20 Promethazine Tab [Phenergan*] 25 mg PO Q4H PRN 12/23/20 Diet: AHA Activity: Ad stella Followup: Gisele Brewer DO, DO [Primary Care Provider] - 1-2 Weeks Time spent managing pt's care (in minutes): 34
[2020-12-25 19:51] VITALS: O2SAT 99
[2020-12-25 20:17] VITALS: BP 157/72; TEMP 97.1
== END 2020-12-25 20:45 | disposition home or self-care (01) | DRG 313 ==
LOC: ER 10:14 → ERHOLD 13:17 → 2ND 15:54
PROVIDERS: ADMIT Internal Medicine; ATTEND Internal Medicine
PROC: 30233N1 Transfusion of Nonautologous Red Blood Cells into Peripheral Vein, Percutaneous Approach (ICD-10-PCS; principal; 2020-12-25)
DX: R07.89 Other chest pain (principal); E87.6 Hypokalemia; G89.3 Neoplasm related pain (acute) (chronic); C76.52 Malignant neoplasm of left lower limb; Z85.3 Personal history of malignant neoplasm of breast; D72.829 Elevated white blood cell count, unspecified; D64.81 Anemia due to antineoplastic chemotherapy; I10 Essential (primary) hypertension; Z96.641 Presence of right artificial hip joint; Z20.822 Contact with and (suspected) exposure to COVID-19
CPT/HCPCS: 36415; 71045; 78452; 80048; 80053; 80061; 81003; 81015; 83735; 83880; 84132; 84439; 84443; 84484; 85025; 85610; 86850; 86900; 86901; 93017; 94760; 96365; 96375; 99285; A9500; J1170; J2405; J2550; J2785; J2997; J3480; J7030; J7040; J7050; P9016; U0003

== ENCOUNTER 2020-12-26 22:45 | Inpatient (IN) | payer OTHER ==
[2020-12-27] MEDS ORDERED: MORPHINE 4 MG/ML SYR ONE (00:11)
[2020-12-27] MEDS ORDERED: ONDANSETRON 4 MG/2 ML VIAL ONE (00:11)
[2020-12-27 00:20] LABS: Absolute Lymphocytes (CBC) 0.3 K/uL (0.7-4.9); Basophils % 0.3 % (0-1.3); Hematocrit 28.5 % (36.0-45.0); Lymphocytes % 51.9 % (15.3-44.8); MPV 8.3 fL (7.6-11.3); Protime INR 1.28; RBC Red Blood Cell Count 3.73 M/uL (3.86-4.86)
[2020-12-27 00:38] LABS: ALT/SGPT 12 U/L (12-78); AST/SGOT 6 U/L (15-37); Albumin 3.1 g/dL (3.4-5.0); Alkaline Phosphatase 102 U/L (45-117); BUN Blood Urea Nitrogen 7 mg/dL (7-18); Bicarbonate 23 mmol/L (21-32); Bilirubin Direct 0.2 mg/dL (0-0.2); Bilirubin Total 0.6 mg/dL (0.2-1.0); Glucose Level 97 mg/dL (74-106); Lipase 46 U/L (73-393); Magnesium 1.8 mg/dL (1.8-2.4); NT PRO-BNP 321 pg/mL (<125); Protein, Total 7.2 g/dL (6.4-8.2); Sodium Level 143 mmol/L (136-145); Troponin (Emerg Dept Use Only) < 0.02 ng/mL (0.0-0.045)
[2020-12-27 00:41] LABS: Potassium 2.4 mmol/L (3.5-5.1)
[2020-12-27 01:18] LABS: Phosphorus 1.4 mg/dL (2.5-4.9)
[2020-12-27 01:36] LABS: Anisocytosis 2+; Blood Morphology Comment NOTED (NOT SEEN); Platelet Estimate DECR; White Blood Cell Scan OK (OK)
--- NOTE | 2020-12-27 01:40 | ER ---
Nurse's Notes [facility] Name: Sade Galdamez Age: 60 yrs Sex: Female : 1960 Arrival Date: 12/26/2020 Time: 22:52 Bed 26 Private MD: Diagnosis: Chest pain, unspecified;Hypokalemia-hypophosphatemia;Pain in left leg-Sarcoma Presentation: 12/26 22:58 Chief complaint: EMS states: they were toned out for report of pt with chest pain pt bb was discharged from here yesterday after receiving stress test and a unit of blood pt currently being treated with chemo for cancer. Coronavirus screen: At this time, the client does not indicate any symptoms associated with coronavirus-19. Ebola Screen: No symptoms or risks identified at this time. Initial Sepsis Screen: Does the patient meet any 2 criteria? No. Patient's initial sepsis screen is negative. Does the patient have a suspected source of infection? No. Patient's initial sepsis screen is negative. Risk Assessment: Do you want to hurt yourself or someone else? Patient reports no desire to harm self or others. Onset of symptoms was December 26, 2020. 22:58 Method Of Arrival: EMS: [facility] 22:58 Acuity: ABDIRIZAK 2 12/27 03:45 Note Potassium Phosphate unavailable. To be addressed during day shift by pharmacy. df1 Charge nurse notified. Triage Assessment: 03:39 General: Appears in no apparent distress. Behavior is calm, cooperative. df1 Historical: - Allergies: 12/26 23:07 Iodine; bb - Home Meds: 23:07 Hydromorphone Oral [Active]; Phenergan Oral [Active]; Eliquis oral [Active]; bb - PMHx: 23:07 breast cancer; chemotherapy; Hypertension; Tumor to groin area; bb - PSHx: 23:07 ovi mastectomy; hysterectomy; bb - Immunization history:: Adult Immunizations up to date. - Social history:: Smoking status: unknown. - Family history:: not pertinent. Screenin/13 03:39 Abuse screen: Denies threats or abuse. Nutritional screening: No deficits noted. df1 Tuberculosis screening: No symptoms or risk factors identified. Fall Risk None identified. Assessment: 01:04 Reassessment: Pt c/o continued pain "the morphine and Zofran did not work" Dr. Pinzon bc5 aware and gave verbal for 1 mg Dilaudid IVP and 12.5 mg Phenergan IVP. Pain: Complains of pain in back and chest. 02:17 Neuro: No deficits noted. Cardiovascular: No deficits noted. Rhythm is sinus rhythm. bc5 Respiratory: Breath sounds are clear bilaterally. Vital Signs: 12/26 22:58 BP 143 / 79; Pulse 91; Resp 16 S; Temp 98.5(TE); Pulse Ox 100% on R/A; Weight 122.47 kg bb (R); Height 5 ft. 5 in. (165.10 cm) (R); Pain 10; 12/27 01:06 BP 133 / 72; Pulse 86; Resp 16; Pulse Ox 98% on R/A; Pain 7/10; bc5 02:16 BP 127 / 70; Pulse 88; Resp 15; Pulse Ox 95% on R/A; Pain 6/10; bc5 03:47 BP 110 / 66; Pulse 88; Resp 18; Pulse Ox 98% on R/A; df1 04:08 BP 129 / 81; Pulse 92; Resp 16; Temp 98(O); Pulse Ox 97% on R/A; Pain 6/10; bc5 12/26 22:58 Body Mass Index 44.93 (122.47 kg, 165.10 cm) bb ED Course: 12/26 22:52 Patient arrived in ED. wg 23:06 Jean Carlos Pinzon MD is Attending Physician. ruddy 23:07 Triage completed. bb 23:07 Arm band placed on Patient placed in an exam room, on a stretcher, on groundwater monitoring technician, bb on pulse oximetry. EKG completed in triage. Results shown to MD. 23:33 XRAY Chest (1 view) In Process Unspecified. EDMS 23:43 Mariana Falcon, RN is Primary Nurse. bc5 12/27 00:23 Basic Metabolic Panel Sent. bc5 00:23 CBC with Diff Sent. bc5 01:37 Alejandro Mayo DO is Hospitalizing Provider. ruddy 03:40 Patient has correct armband on for positive identification. Bed in low position. Call df1 light in reach. Side rails up X 1. 03:40 No provider procedures requiring assistance completed. Accessed PICC line. df1 04:08 COVID-19 (Coronavirus) Document "Date of Onset" if Symptomatic Sent. bc5 04:18 Patient admitted, IV remains in place. bc5 Administered Medications: 12/26 23:50 Drug: morphine 4 mg Route: IVP; Site: PICC; bc5 12/27 01:07 Follow up: Response: Pain is unchanged, physician notified bc5 12/26 23:50 Drug: Zofran (Ondansetron) 4 mg Route: IVP; Site: PICC; bc5 12/27 01:07 Follow up: Response: Nausea unchanged bc5 01:10 Drug: Cefepime 2 grams Route: IVPB; Rate: 200 ml/hr; Infused Over: 30 mins; Site: PICC; bc5 02:18 Follow up: IV Status: Completed infusion; IV Intake: 100ml bc5 01:22 Not Given (Duplicate Order): Potassium Chloride 20 mEq IV at per protocol once; ruddy administer over 1-2 hours 01:30 Drug: Dilaudid (HYDROmorphone) 1 mg Route: IVP; Site: PICC; bc5 04:14 Follow up: Response: Pain is decreased bc5 01:30 Drug: Phenergan (promethazine) 12.5 mg Route: IVP; Site: PICC; bc5 04:14 Follow up: Response: Nausea is decreased bc5 02:02 Drug: Potassium Effervescent Tablet 50 mEq Route: PO; bc5 02:18 Follow up: Response: No adverse reaction bc5 04:13 Follow up: Response: No adverse reaction bc5 02:02 Drug: Pepcid (famotidine) 20 mg Route: IVP; Site: PICC; bc5 04:13 Follow up: Response: No adverse reaction bc5 02:15 Drug: Aspirin Chewable Tablet 162 mg Route: PO; bc5 04:12 Follow up: Response: No adverse reaction bc5 02:15 Drug: Potassium Chloride 20 mEq Route: IV; Rate: per protocol; Site: PICC; bc5 04:17 Follow up: IV Status: Completed infusion; IV Intake: 200ml bc5 04:07 Drug: NS 0.9% with KCl 20 mEq/L 1000 ml Route: IV; Rate: 125 ml/hr; Site: PICC; bc5 04:13 Follow up: IV Status: Infusion continued upon admission bc5 04:08 Drug: Phenergan (promethazine) 12.5 mg Route: IVP; Site: PICC; df1 04:15 Follow up: Response: No adverse reaction bc5 04:09 Drug: Dilaudid (HYDROmorphone) 1 mg Route: IVP; Site: PICC; df1 04:15 Follow up: Response: No adverse reaction bc5 04:25 Not Given (not available at this timee): Potassium Phosphate 15 mmol IV at per protocol bb once; dose as phosphate; infuse over 4-6 hours (mix in 250 mL NS) Intake: 02:18 IV: 100ml; Total: 100ml. bc5 04:17 IV: 200ml; Total: 300ml. bc5 Outcome: 01:39 Decision to Hospitalize by Provider. [facility] 04:18 Admitted to Med/surg accompanied by nurse, via stretcher, room 203, with chart, Other bc5 IV infusion Report called to [facility] 04:18 Condition: stable 04:38 Patient left the ED. 5 Signatures: Dispatcher [employer] EDGA Jean Carlos Pinzon MD MD cha Ballard, Brenda, RN RN Vj Magdaleno, RN Mariana Corona, RN RN Talita Wing df1 Corrections: (The following items were deleted from the chart) 04:20 04:18 Admitted to Med/surg accompanied by nurse, via stretcher, room 203, with chart, bc5 Other IV infusion bc5 04:22 04:18 Admitted to Med/surg accompanied by nurse, via stretcher, room 203, with chart, bc5 Other IV infusion bc5
--- NOTE | 2020-12-27 01:40 | EDPHYS ---
Physician Documentation [facility] Name: Sade Galdamez Age: 60 yrs Sex: Female : 1960 Arrival Date: 12/26/2020 Time: 22:52 Bed 26 Private MD: AMY Physician Jean Carlos Pinzon HPI: 12/27 01:23 This 60 yrs old Black Female presents to ER via EMS with complaints of chest pain and ruddy left leg pain. 01:23 The patient presents with decreased range of motion, pain. The complaints affect the ruddy left hip, lateral aspect of left thigh, lateral aspect of left knee, left upper thigh, left quadriceps and left knee. Context: The problem was sustained at an unknown site. Onset: The symptoms/episode began/occurred 2 day(s) ago. Modifying factors: The symptoms are alleviated by nothing. the symptoms are aggravated by nothing. Associated signs and symptoms: The patient has no apparent associated signs or symptoms. The patient or guardian reports chest pain that is located primarily in the anterior chest wall, bilaterally. Onset: 2 day(s) ago. The pain does not radiate. Associated signs and symptoms: The patient has no apparent associated signs or symptoms. Historical: - Allergies: 12/26 23:07 Iodine; bb - Home Meds: 23:07 Hydromorphone Oral [Active]; Phenergan Oral [Active]; Eliquis oral [Active]; bb - PMHx: 23:07 breast cancer; chemotherapy; Hypertension; Tumor to groin area; bb - PSHx: 23:07 ovi mastectomy; hysterectomy; bb - Immunization history:: Adult Immunizations up to date. - Social history:: Smoking status: unknown. - Family history:: not pertinent. ROS: 12/27 01:23 Constitutional: Negative for fever, chills, and weight loss, Eyes: Negative for injury, ruddy pain, redness, and discharge, ENT: Negative for injury, pain, and discharge, Neck: Negative for injury, pain, and swelling, Respiratory: Negative for shortness of breath, cough, wheezing, and pleuritic chest pain, Abdomen/GI: Negative for abdominal pain, nausea, vomiting, diarrhea, and constipation, Back: Negative for injury and pain, : Negative for injury, bleeding, discharge, and swelling, MS/Extremity: Negative for injury and deformity, Skin: Negative for injury, rash, and discoloration, Neuro: Negative for headache, weakness, numbness, tingling, and seizure, Psych: Negative for depression, anxiety, suicide ideation, homicidal ideation, and hallucinations, Allergy/Immunology: Negative for hives, rash, and allergies, Endocrine: Negative for neck swelling, polydipsia, polyuria, polyphagia, and marked weight changes, Hematologic/Lymphatic: Negative for swollen nodes, abnormal bleeding, and unusual bruising. Cardiovascular: Positive for chest pain. MS/extremity: Positive for pain, tenderness. Exam: :23 Constitutional: This is a well developed, well nourished patient who is awake, alert, ruddy and in no acute distress. Head/Face: Normocephalic, atraumatic. Eyes: Pupils equal round and reactive to light, extra-ocular motions intact. Lids and lashes normal. Conjunctiva and sclera are non-icteric and not injected. Cornea within normal limits. Periorbital areas with no swelling, redness, or edema. ENT: Nares patent. No nasal discharge, no septal abnormalities noted. Tympanic membranes are normal and external auditory canals are clear. Oropharynx with no redness, swelling, or masses, exudates, or evidence of obstruction, uvula midline. Mucous membranes moist. Neck: Trachea midline, no thyromegaly or masses palpated, and no cervical lymphadenopathy. Supple, full range of motion without nuchal rigidity, or vertebral point tenderness. No Meningismus. Chest/axilla: Normal chest wall appearance and motion. Nontender with no deformity. No lesions are appreciated. Cardiovascular: Regular rate and rhythm with a normal S1 and S2. No gallops, murmurs, or rubs. Normal PMI, no JVD. No pulse deficits. Respiratory: Lungs have equal breath sounds bilaterally, clear to auscultation and percussion. No rales, rhonchi or wheezes noted. No increased work of breathing, no retractions or nasal flaring. Abdomen/GI: Soft, non-tender, with normal bowel sounds. No distension or tympany. No guarding or rebound. No evidence of tenderness throughout. Back: No spinal tenderness. No costovertebral tenderness. Full range of motion. Female : Normal external genitalia. Skin: Warm, dry with normal turgor. Normal color with no rashes, no lesions, and no evidence of cellulitis. Neuro: Awake and alert, GCS 15, oriented to person, place, time, and situation. Cranial nerves II-XII grossly intact. Motor strength 5/5 in all extremities. Sensory grossly intact. Cerebellar exam normal. Normal gait. Psych: Awake, alert, with orientation to person, place and time. Behavior, mood, and affect are within normal limits. 01:23 Musculoskeletal/extremity: ROM: limited active range of motion due to pain, limited passive range of motion due to pain, in the left leg, Circulation is intact in all extremities. Sensation intact. Compartment Syndrome exam of affected extremity: is normal. Joints: All joints appear normal with full range of motion. Vital Signs: 12/26 22:58 BP 143 / 79; Pulse 91; Resp 16 S; Temp 98.5(TE); Pulse Ox 100% on R/A; Weight 122.47 kg bb (R); Height 5 ft. 5 in. (165.10 cm) (R); Pain 12/24; 12/27 01:06 BP 133 / 72; Pulse 86; Resp 16; Pulse Ox 98% on R/A; Pain 7/10; bc5 02:16 BP 127 / 70; Pulse 88; Resp 15; Pulse Ox 95% on R/A; Pain 6/10; bc5 03:47 BP 110 / 66; Pulse 88; Resp 18; Pulse Ox 98% on R/A; df1 04:08 BP 129 / 81; Pulse 92; Resp 16; Temp 98(O); Pulse Ox 97% on R/A; Pain 6/10; bc5 12/26 22:58 Body Mass Index 44.93 (122.47 kg, 165.10 cm) bb MDM: 12/26 23:08 Patient medically screened. ruddy 12/27 01:27 Differential diagnosis: coronary artery disease chest wall pain, costochondritis, ruddy gastroesophageal reflux disease (GERD), pleurisy, pulmonary embolus, stable angina, unstable angina. HEART Score: History: Slightly Suspicious (0), ECG: Non specific repolarization disturbance / LBTB / PM (1), Age: > 45 and < 65 years (1), Risk Factors: 1 or 2 risk factors (1), [Hypertension] [+ Family HX] Troponin: < or = 1 x Normal Limit (0). The patient was given aspirin in the Emergency Department. The patient's deep vein thrombosis risk score was calculated as follows: the patients entire leg is swollen (1.0 Pts) Total Score: 1 to 2 points. This patient was found to be at moderate risk for a deep vein thrombosis by using the Well's assessment criteria. The patient's pulmonary embolism risk score was calculated as follows: Total Score: 0-2 points. This patient was found to be at low risk for a pulmonary embolism by using the Well's assessment criteria. GUILHERME Risk Score: TOTAL SCORE = 0. Data reviewed: vital signs, nurses notes, lab test result(s), EKG, radiologic studies, plain films. Data interpreted: environmental monitoring technician: rate is 86 beats/min, rhythm is regular. Data interpreted: Pulse oximetry: on. Counseling: I had a detailed discussion with the patient and/or guardian regarding: the historical points, exam findings, and any diagnostic results supporting the discharge/admit diagnosis, lab results, radiology results, the need for further work-up and treatment in the hospital. 12/26 23:07 Order name: Basic Metabolic Panel [facility] 12/26 23:07 Order name: CBC with Diff [facility] 12/26 23:07 Order name: LFT's; Complete Time: 01: [facility] 12/26 23:07 Order name: Magnesium; Complete Time: : [facility] 12/26 23:07 Order name: NT PRO-BNP; Complete Time: : [facility] 12/26 23:07 Order name: PT-INR; Complete Time: 00:23 [facility] 12/26 23:07 Order name: Troponin (emerg Dept Use Only); Complete Time: : [facility] 12/26 23:07 Order name: Lipase; Complete Time: 01: [facility] 12/26 23:07 Order name: Urine Culture [facility] 12/26 23:08 Order name: Basic Metabolic Panel; Complete Time: 01: [facility] 12/26 23:08 Order name: CBC with Automated Diff [facility] 12/27 00:14 Order name: D-Dimer; Complete Time: 00:23 [facility] 12/27 00:22 Order name: CBC Smear Scan [facility] 12/26 23:07 Order name: XRAY Chest (1 view) [facility] 12/27 00:24 Order name: Blood Culture Adult (2) [facility] 12/27 00:24 Order name: Lactate; Complete Time: 01: [facility] 12/27 01:06 Order name: COVID-19 (Coronavirus) Document "Date of Onset" if Symptomatic [facility] 12/27 01:09 Order name: Phosphorus; Complete Time: 01:22 [facility] 12/27 01:12 Order name: SARS-COV-2 RT PCR [facility] 12/27 04:14 Order name: Urine Dipstick-Ancillary [facility] 12/26 23:07 Order name: EKG; Complete Time: 23:08 [facility] 12/26 23:07 Order name: Cardiac monitoring; Complete Time: 23:26 [facility] 12/26 23:07 Order name: EKG - Nurse/Tech; Complete Time: 23: [facility] 12/26 23:07 Order name: IV Saline Lock; Complete Time: 04:17 [facility] 12/26 23:07 Order name: Labs collected and sent; Complete Time: 00:23 [facility] 12/26 23:07 Order name: O2 Per Protocol; Complete Time: 23: [facility] 12/26 23:07 Order name: O2 Sat Monitoring; Complete Time: 23: [facility] 12/26 23:07 Order name: Urine Dipstick-Ancillary (obtain specimen); Complete Time: 04:07 [facility] Administered Medications: 12/26 23:50 Drug: morphine 4 mg Route: IVP; Site: [facility]; [facility] 12/27 01:07 Follow up: Response: Pain is unchanged, physician notified [facility] 12/26 23:50 Drug: Zofran (Ondansetron) 4 mg Route: IVP; Site: [facility]; [facility] 12/27 01:07 Follow up: Response: Nausea unchanged [facility] 01:10 Drug: Cefepime 2 grams Route: IVPB; Rate: 200 ml/hr; Infused Over: 30 mins; Site: [facility]; 5 02:18 Follow up: IV Status: Completed infusion; IV Intake: 100ml [facility] 01:22 Not Given (Duplicate Order): Potassium Chloride 20 mEq IV at per protocol once; [facility] administer over 1-2 hours 01:30 Drug: Dilaudid (HYDROmorphone) 1 mg Route: IVP; Site: [facility]; 5 04:14 Follow up: Response: Pain is decreased [facility] 01:30 Drug: Phenergan (promethazine) 12.5 mg Route: IVP; Site: [facility]; bc5 04:14 Follow up: Response: Nausea is decreased bc5 02:02 Drug: Potassium Effervescent Tablet 50 mEq Route: PO; bc5 02:18 Follow up: Response: No adverse reaction bc5 04:13 Follow up: Response: No adverse reaction bc5 02:02 Drug: Pepcid (famotidine) 20 mg Route: IVP; Site: PICC; bc5 04:13 Follow up: Response: No adverse reaction bc5 02:15 Drug: Aspirin Chewable Tablet 162 mg Route: PO; bc5 04:12 Follow up: Response: No adverse reaction bc5 02:15 Drug: Potassium Chloride 20 mEq Route: IV; Rate: per protocol; Site: PICC; bc5 04:17 Follow up: IV Status: Completed infusion; IV Intake: 200ml bc5 04:07 Drug: NS 0.9% with KCl 20 mEq/L 1000 ml Route: IV; Rate: 125 ml/hr; Site: PICC; bc5 04:13 Follow up: IV Status: Infusion continued upon admission bc5 04:08 Drug: Phenergan (promethazine) 12.5 mg Route: IVP; Site: PICC; df1 04:15 Follow up: Response: No adverse reaction bc5 04:09 Drug: Dilaudid (HYDROmorphone) 1 mg Route: IVP; Site: PICC; df1 04:15 Follow up: Response: No adverse reaction bc5 04:25 Not Given (not available at this timee): Potassium Phosphate 15 mmol IV at per protocol bb once; dose as phosphate; infuse over 4-6 hours (mix in 250 mL NS) Disposition Summary: 12/27/20 01:39 Hospitalization Ordered Hospitalization Status: Inpatient Admission ruddy Provider: Alejandro Mayo cha Location: Telemetry/MedSurg (Inpatient) ruddy Condition: Stable ruddy Problem: new ruddy Symptoms: have improved ruddy Bed/Room Type: Standard ruddy Room Assignment: 203(12/27/20 03:34) mw Diagnosis - Chest pain, unspecified ruddy - Hypokalemia - hypophosphatemia ruddy - 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 EDMS EDMS 01:08 01:04 PHOSPHORUS+C.LAB.BRZ ordered. EDMS EDMS 01:12 01:06 CORONAVIRUS ordered. EDMS EDMS 02:13 01:23 Extrem Venous W Compression Ovi+US.RAD.BRZ ordered. EDMS EDMS 03:34 01:39 ruddy mw
[2020-12-27] MEDS ORDERED: PROMETHAZINE INJ 25 MG/ML AMP ONE ×2 (01:46→04:23)
[2020-12-27] MEDS ORDERED: CEFEPIME 1 GM/VIAL ONE (01:46)
[2020-12-27] MEDS ORDERED: POTASSIUM 25 MEQ EFFERV TAB ONE (01:47)
[2020-12-27] MEDS ORDERED: HYDROMORPHONE HCL 1 MG/ML INJ ONE ×2 (01:47→04:23)
[2020-12-27] MEDS ORDERED: NS KCL 20MEQ 1,000 ML IV ONE (01:47)
[2020-12-27] MEDS ORDERED: FAMOTIDINE 20 MG/2 ML VIAL IV ONE (01:47)
[2020-12-27] MEDS ORDERED: NA CHLORIDE 0.9% 100 ML ONE (01:55)
--- NOTE | 2020-12-27 02:20 | P.HP ---
Certification for Inpatient Patient admitted to: Inpatient With expected LOS: >2 Midnights Patient will require the following post-hospital care: None Practitioner: I am a practitioner with admitting privileges, knowledge of patient current condition, hospital course, and medical plan of care. Services: Services provided to patient in accordance with Admission requirements found in Title 42 Section 412.3 of the Code of Federal Regulations Patient History Date of Service: 12/27/20 Primary Care Provider: Dr. Brewer, Dr. 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 Patient reports that her chest pain usually occurs when her potassium is low. Patient had stress test last week which was negative for acute findings, patient was cleared by cardiology. Patient was evaluated here in the emergency department EKG is without changes from previous, labs are significant for sodium 143 potassium 2.4 chloride 114 GFR 78 calcium 8.4 phosphorus 1.4 white blood cell count 0.7 hemoglobin 9.2 hematocrit 28.5 platelets 66 white blood cell 3.73 absolute neutrophils 200. Patient without fever or other signs of infection at this time, ED provider wishes to admit for neutropenia, pancytopenia, hypokalemia, hypophosphatemia, cancer related pain. Allergies iopamidol [From [id number]] Allergy (Verified 12/07/20 03:52) Shortness of breath Home Medications: Apixaban [Eliquis] 10 mg PO BID 12/07/20 Folic Acid 1 mg PO DAILY 12/07/20 Gabapentin [Neurontin] 800 mg PO BID 12/07/20 Hydromorphone [Dilaudid*] 4 mg PO Q4HP PRN 12/07/20 Morphine Sulfate [Morphine Sulfate ER] 100 mg PO Q12H 12/07/20 OLANZapine [Olanzapine] 2.5 mg PO BEDTIME PRN PRN 12/07/20 Potassium Chloride [K-Dur] 20 meq PO DAILY 90 Days #90 tab.[email or web address] 12/10/20 Promethazine Tab [Phenergan*] 25 mg PO Q4H PRN 12/23/20 - Past Medical/Surgical History Diabetic: No -: breast cancer -: liposarcoma -: HTN (resolved) -: mastectomy -: hysterectomy -: R hip replacement Psychosocial/ Personal History: Retired, lives at home by self - Family History Mother -: Diabetes Father -: Cancer Notes: lung cancer Brother -: Hypertension, Diabetes Sister -: Liver disease Notes: cirrhosis - Social History Smoking Status: Never smoker Alcohol use: No CD- Drugs: No Caffeine use: Yes Place of Residence: Home Review of Systems 10-point ROS is otherwise unremarkable Cardiovascular: Chest Pain Musculoskeletal: Leg Pain Physical Examination - Physical Exam General: Alert, In no apparent distress, Oriented x3 HEENT: Atraumatic, PERRLA, Mucous membr. moist/pink, EOMI, Sclerae nonicteric Neck: Supple, 2+ carotid pulse no bruit, No LAD, Without JVD or thyroid abnormality Respiratory: Clear to auscultation bilaterally, Normal air movement Cardiovascular: Regular rate/rhythm, Normal S1 S2 Gastrointestinal: Normal bowel sounds, No tenderness Musculoskeletal: No tenderness, Swelling (Left lower extremity swelling) Integumentary: No rashes Neurological: Normal gait, Normal speech, Normal strength at 5/5 x4 extr, Normal tone, Normal affect Lymphatics: No axilla or inguinal lymphadenopathy - Studies Laboratory Data (last 24 hrs) 12/27/20 01:04: Phosphorus Cancelled 12/26/20 23:51: PT 14.7 H, INR 1.28 12/26/20 23:51: WBC 0.70 L* D, Hgb 9.2 L, Hct 28.5 L D, Plt Count 66 L D 12/26/20 23:51: Sodium 143, Potassium 2.4 L*, BUN 7, Creatinine 0.89, Glucose 97, Phosphorus 1.4 L, Magnesium 1.8, Total Bilirubin 0.6, AST 6 L, ALT 12, Alkaline Phosphatase 102, Lipase 46 L Assessment and Plan - Plan Assessment: Neutropenia, pancytopenia, anemia related to chemotherapy for sarcoma Hypophosphatemia, hypokalemia Chronic pain Plan: Neutropenia, pancytopenia, anemia related to chemotherapy for sarcoma: Patient without any fever or signs of infection at this time, will continue to monitor with daily labs. We will need to continue patient's Eliquis. Last chemotherapy was last week on the fourth, fifth, sixth, seventh. Consult hematology as necessary. Transfuse to maintain hemoglobin greater than 7. Hypophosphatemia, hypokalemia: Potassium/phosphate protocols in place, continue with IV fluids. Chronic pain: Continue pain medications including Dilaudid and antiemeticsPhenergan. Patient with some chest pain, reports she gets pain like this when her potassium was low had a recent stress test which was negative, will trend troponins if there are any changes will consult cardiology.. DVT PPX: Continue Eliquis Code status: DNR Discharge Plan: Home Plan to discharge in: 48 Hours - Advance Directives Does patient have a Living Will: No Does patient have a Durable POA for Healthcare: No - Code Status/Comfort Care Code Status Assessed: Yes (DNR) Critical Care: No Time Spent Managing Pts Care (In Minutes): 55
[2020-12-27] MEDS ORDERED: KCL 20 MEQ/100 mL IVPB 20 MEQ/100 ML BAG IV ONE ×2 (02:30→16:00)
[2020-12-27] MEDS ORDERED: ASPIRIN EC 81 MG TAB PO ONE (02:30)
[2020-12-27 04:14] LABS: Urine Blood 1+ (Negative); Urine Glucose Negative (Negative); Urine Protein 2+ (Negative); Urine pH 6.5 (5.0-7.0)
[2020-12-27] MEDS ORDERED: NA CHLORIDE 0.9% 50 ML ONE (04:23)
[2020-12-27] MEDS ORDERED: ACETAMINOPHEN 500 MG TAB PO PRN (04:34)
[2020-12-27] MEDS ORDERED: ONDANSETRON 4 MG/2 ML VIAL IV PRN (04:34)
[2020-12-27] MEDS ORDERED: HYDROMORPHONE ORAL 4 MG TAB PO PRN ×2 (04:34→08:21)
[2020-12-27] MEDS ORDERED: NS KCL 20MEQ 20 MEQ/1,000 ML BAG IV SCH (04:34)
[2020-12-27] MEDS ORDERED: PROMETHAZINE 25 MG TABLET PO PRN (04:34)
[2020-12-27 05:18] VITALS: BMI 41.5
[2020-12-27] MEDS: HYDROMORPHONE HCL 2 MG/ML inj IV PRN ×5 (05:29→21:46)
[2020-12-27] MEDS: PROMETHAZINE INJ 25 MG/ML AMP IV PRN ×5 (05:30→21:47)
[2020-12-27 05:55] LABS: Urine Appearance CLEAR (Clear); Urine Bilirubin NEGATIVE (Negative); Urine Blood 1+ (Negative); Urine Color YELLOW (Yellow); Urine Glucose NEGATIVE (Negative); Urine Protein 2+ (Negative); Urine Urobilinogen 0.2 mg/dL (0.2-1.0); Urine pH 6.5 (5.0-7.0)
[2020-12-27 05:56] LABS: Urine Microscopic Reflex ORDER UMIC
--- NOTE | 2020-12-27 06:02 | P.PN ---
Subjective Date of Service: 12/27/20 Primary Care Provider: Dr. Brewer, Dr. Beverly Chief Complaint: Hypokalemia, hypophosphatemia, pancytopenia Subjective: Improving, Doing well Physical Examination - Vital Signs Temperature: 97.6 F Blood Pressure: 136/79 Pulse: 100 Respirations: 18 Pulse Ox (%): 97 - Studies Laboratory Data (last 24 hrs) 12/27/20 01:04: Phosphorus Cancelled 12/26/20 23:51: PT 14.7 H, INR 1.28 12/26/20 23:51: WBC 0.70 L* D, Hgb 9.2 L, Hct 28.5 L D, Plt Count 66 L D 12/26/20 23:51: Sodium 143, Potassium 2.4 L*, BUN 7, Creatinine 0.89, Glucose 97, Phosphorus 1.4 L, Magnesium 1.8, Total Bilirubin 0.6, AST 6 L, ALT 12, Alkaline Phosphatase 102, Lipase 46 L Assessment & Plan Discharge Plan: Home Plan to discharge in: 24 Hours Physician Review Additional Text: COVID: negative CXR: COMPARISON: Chest Single View dated 12/23/2020; Chest Single View dated 12/08/2020; Chest Single View dated 12/06/2020; Chest Single View dated 10/27/2020; Rest Stress Cardiac Imaging dated 12/25/2020; Thorax Wo Con dated 12/06/2020 FINDINGS: Lines: Left subclavian approach PICC with tip overlying the right cavoatrial junction. Lungs: No evidence of edema or pneumonia. Pleural: No significant pleural effusions or pneumothorax. Cardiac: The heart size is within normal limits. Bones: No acute fractures. IMPRESSION: No acute cardiopulmonary disease. Physical exam: General: Alert, In no apparent distress, Oriented x3 HEENT: Neck supple Respiratory: Clear to auscultation bilaterally, Normal air movement Cardiovascular: Regular rate/rhythm, Normal S1 S2 Gastrointestinal: Normal bowel sounds, No tenderness Musculoskeletal: No tenderness, Swelling (Left lower extremity swelling) Integumentary: No rashes Neurological: Normal gait, Normal speech, Normal strength at 5/5 x4 extr, Normal tone, Normal affect Lymphatics: No axilla or inguinal lymphadenopathy Impression: Neutropenia, pancytopenia, anemia related to chemotherapy for sarcoma Hypophosphatemia, hypokalemia Chronic pain History of DVT on Eliquis Plan: Neutropenia, pancytopenia, anemia 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 Continue with Eliquis as patient with history of DVT. 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 Will start Neupogen due to her neutropenia. No need for antibiotics or antiviral due to no fever. Will monitor her levels closely. Recheck lab later today. Consider discharge as early as today if not tomorrow. Continue to discuss with hematology. Hypophosphatemia, hypokalemia: Continue with home potassium medication. Continue with protocol to replace. Chronic pain: Continue with [facility]. Patient takes medication for pain for her sarcoma. History of DVT on Eliquis: Continue Eliquis. DVT PPX: Continue Eliquis Code status: DNR Discharge Plan: Home Time Spent Managing Pts Care (In Minutes): 55
[2020-12-27 06:15] LABS: Urine Bacteria <20 /HPF (<20)
[2020-12-27 06:16] LABS: Urine Mucus 1+ /HPF (NONE SEEN)
--- NOTE | 2020-12-27 07:23 | RAD REPORT ---
EXAM DESCRIPTION: RAD - Chest Single View - 12/26/2020 11:32 pm CLINICAL HISTORY: CHEST PAIN COMPARISON: Chest Single View dated 12/23/2020; Chest Single View dated 12/08/2020; Chest Single View dated 12/06/2020; Chest Single View dated 10/27/2020; Rest Stress Cardiac Imaging dated 12/25/2020; Tho rax Wo Con dated 12/06/2020 FINDINGS: Lines: Left subclavian approach PICC with tip overlying the right cavoatrial junction. Lungs: No evidence of edema or pneumonia. Pleural: No significant pleural effusions or pneumothorax. Cardiac: The heart size is within normal limits. Bones: No acute fractures. Other: IMPRESSION: No acute cardiopulmonary disease.
[2020-12-27] MEDS: POTASSIUM CL SA 10 MEQ TAB PO SCH (09:00)
[2020-12-27] MEDS ORDERED: INFLUENZA VACCINE (for 6+ mo) 0.5 ML DOSE IMVAC ONE (09:00)
[2020-12-27] MEDS: TBO-FILGRASTIM 300 MCG/0.5 ML SYR SQ SCH (09:40)
[2020-12-27] MEDS: APIXABAN 5 MG TABLET PO SCH ×2 (09:45→19:58)
[2020-12-27] MEDS: DOCUSATE NA 100 MG CAP PO SCH (09:45)
[2020-12-27] MEDS: FOLIC ACID 1 MG TABLET PO SCH (09:45)
[2020-12-27] MEDS: GABAPENTIN 400 MG CAP PO SCH ×2 (09:45→19:57)
[2020-12-27] MEDS ORDERED: OLANZapine 2.5 MG TAB PO PRN (10:24)
[2020-12-27] MEDS ORDERED: POTASSIUM CL 60 MEQ in NA CHLORIDE 0.9% 1,000 ML IV SCH (12:00)
[2020-12-27 12:30] LABS: Absolute Lymphocytes (CBC) 0.3 K/uL (0.7-4.9); Basophils % 0.1 % (0-1.3); Hematocrit 21.9 % (36.0-45.0); Lymphocytes % 60.8 % (15.3-44.8); MPV 8.3 fL (7.6-11.3); RBC Red Blood Cell Count 2.87 M/uL (3.86-4.86)
[2020-12-27 12:35] LABS: Albumin 2.7 g/dL (3.4-5.0); Bilirubin Total 0.3 mg/dL (0.2-1.0); Magnesium 1.8 mg/dL (1.8-2.4); Potassium 3.7 mmol/L (3.5-5.1); Protein, Total 6.2 g/dL (6.4-8.2)
[2020-12-27 12:55] LABS: Anisocytosis 1+; Blood Morphology Comment NOTED (NOT SEEN); Platelet Estimate DECR; White Blood Cell Scan OK (OK)
--- NOTE | 2020-12-27 16:37 | EKG ---
Test Date: 2020-12-26 Test Time: 22:59:55 Pinsetter Mechanic Automatic: TYLER MEASUREMENT RESULTS: Intervals: Rate: 99 PA: 136 QRSD: 94 QT: 368 QTc: 472 [place]: P: 99 PA: 136 QRS: -10 T: 174 INTERPRETIVE STATEMENTS: Normal sinus rhythm ST & T wave abnormality, consider inferior ischemia ST & T wave abnormality, consider anterolateral ischemia Prolonged QT Abnormal ECG Compared to ECG 12/23/2020 10:27:19 Prolonged QT interval now present Sinus tachycardia no longer present Atrial premature complex(es) no longer present Aberrant conduction of supraventricular beat(s) no longer present ST (T wave) deviation still present Possible ischemia still present Electronically Signed On 12-27-20 16:35:40 CDT by Antony Roca
[2020-12-27 20:00] LABS: Hematocrit 23.9 % (36.0-45.0)
[2020-12-27] MEDS: KCL 20 MEQ/100 mL IVPB 20 MEQ/100 ML BAG IV SCH ×2 (21:47→23:40)
[2020-12-28] MEDS: KCL 20 MEQ/100 mL IVPB 20 MEQ/100 ML BAG IV SCH (01:52)
[2020-12-28] MEDS: PROMETHAZINE INJ 25 MG/ML AMP IV PRN ×6 (01:52→21:43)
[2020-12-28] MEDS: HYDROMORPHONE HCL 2 MG/ML inj IV PRN ×6 (01:53→21:43)
[2020-12-28 05:08] LABS: Albumin 2.8 g/dL (3.4-5.0); Bilirubin Total 0.3 mg/dL (0.2-1.0); Magnesium 1.9 mg/dL (1.8-2.4); Phosphorus 1.2 mg/dL (2.5-4.9); Potassium 3.1 mmol/L (3.5-5.1); Protein, Total 6.5 g/dL (6.4-8.2)
[2020-12-28 05:32] LABS: Absolute Lymphocytes (CBC) 0.4 K/uL (0.7-4.9); Basophils % 0.6 % (0-1.3); Hematocrit 22.3 % (36.0-45.0); Lymphocytes % 69.7 % (15.3-44.8); MPV 8.6 fL (7.6-11.3); RBC Red Blood Cell Count 2.92 M/uL (3.86-4.86)
--- NOTE | 2020-12-28 05:49 | P.PN ---
Subjective Date of Service: 12/28/20 Primary Care Provider: Dr. Brewer, Dr. Beverly Chief Complaint: Hypokalemia, hypophosphatemia, pancytopenia Subjective: Improving, Doing well Physical Examination - Vital Signs Temperature: 98.4 F Blood Pressure: 127/70 Pulse: 87 Respirations: 20 Pulse Ox (%): 94 Assessment & Plan Discharge Plan: Home Plan to discharge in: 24 Hours Physician Review Additional Text: COVID: negative CXR: COMPARISON: Chest Single View dated 12/23/2020; Chest Single View dated 12/08/2020; Chest Single View dated 12/06/2020; Chest Single View dated 10/27/2020; Rest Stress Cardiac Imaging dated 12/25/2020; Thorax Wo Con dated 12/06/2020 FINDINGS: Lines: Left subclavian approach PICC with tip overlying the right cavoatrial junction. Lungs: No evidence of edema or pneumonia. Pleural: No significant pleural effusions or pneumothorax. Cardiac: The heart size is within normal limits. Bones: No acute fractures. IMPRESSION: No acute cardiopulmonary disease. Physical exam: General: Alert, In no apparent distress, Oriented x3 HEENT: Neck supple Respiratory: Clear to auscultation bilaterally, Normal air movement Cardiovascular: Regular rate/rhythm, Normal S1 S2 Gastrointestinal: Normal bowel sounds, No tenderness Musculoskeletal: No tenderness, Swelling (Left lower extremity swelling) Integumentary: No rashes Neurological: Normal gait, Normal speech, Normal strength at 5/5 x4 extr, Normal tone, Normal affect Lymphatics: No axilla or inguinal lymphadenopathy Impression: Pancytopenia related to chemotherapy for sarcoma Hypophosphatemia, hypokalemia Chronic pain History of DVT on Eliquis Plan: Pancytopenia related to chemotherapy for sarcoma: Case discussed in detail with her oncologist. Due to her pancytopenia will continue with Neupogen to help with her white count. Due to her drop in hemoglobin we will transfuse units of blood. We will give Lasix after each unit and recheck hemoglobin hematocrit 1 hour after. Maintain hemoglobin above 7.5. We will monitor her platelet count. If less than 15 will transfuse platelets. We will also start Levaquin 500 mg daily. We will continue to monitor the patient closely. Possible discharge tomorrow. Hypophosphatemia, hypokalemia: Continue with home potassium medication. Continue with protocol to replace. Chronic pain: Continue with Neurontin, Dilaudid. Patient takes medication for pain for her sarcoma. History of DVT on Eliquis: Continue Eliquis. DVT PPX: Continue Eliquis Code status: DNR Discharge Plan: Home Time Spent Managing Pts Care (In Minutes): 55
[2020-12-28] MEDS ORDERED: KCL 20 MEQ/100 mL IVPB 20 MEQ/100 ML BAG IV SCH (07:00)
[2020-12-28 07:38] LABS: Anisocytosis 2+; Blood Morphology Comment NOTED (NOT SEEN); Platelet Estimate DECR
[2020-12-28] MEDS: ENSURE CLEAR 200 ML CAN PO SCH ×2 (09:00→20:33)
[2020-12-28] MEDS: POTASSIUM CL SA 10 MEQ TAB PO SCH (09:00)
[2020-12-28] MEDS: GABAPENTIN 400 MG CAP PO SCH ×2 (10:33→20:32)
[2020-12-28] MEDS: DOCUSATE NA 100 MG CAP PO SCH (10:33)
[2020-12-28] MEDS: APIXABAN 5 MG TABLET PO SCH ×2 (10:33→20:28)
[2020-12-28] MEDS: FOLIC ACID 1 MG TABLET PO SCH (10:33)
[2020-12-28] MEDS: TBO-FILGRASTIM 300 MCG/0.5 ML SYR SQ SCH (10:34)
[2020-12-28] MEDS ORDERED: KCL 20 MEQ/100 mL IVPB 20 MEQ/100 ML BAG IV ONE (11:15)
[2020-12-28] MEDS: LORAZEPAM 0.5 MG TABLET PO PRN (14:14)
[2020-12-28] MEDS ORDERED: NA CHLORIDE 0.9% 250 ML ONE (21:20)
[2020-12-28] MEDS ORDERED: FUROSEMIDE 20 MG/ 2ML VIAL IV ONE (23:22)
[2020-12-29] MEDS: HYDROMORPHONE HCL 2 MG/ML inj IV PRN ×6 (02:05→22:21)
[2020-12-29] MEDS: PROMETHAZINE INJ 25 MG/ML AMP IV PRN ×6 (02:05→22:21)
[2020-12-29] MEDS: LORAZEPAM 0.5 MG TABLET PO PRN ×3 (02:39→20:13)
[2020-12-29] MEDS ORDERED: FUROSEMIDE 20 MG/ 2ML VIAL IV ONE (04:45)
--- NOTE | 2020-12-29 05:54 | P.PN ---
Subjective Date of Service: 12/29/20 Primary Care Provider: Dr. Brewer, Dr. Beverly Chief Complaint: Hypokalemia, hypophosphatemia, pancytopenia Subjective: Improving, Doing well Physical Examination - Vital Signs Temperature: 97.4 F Blood Pressure: 122/74 Pulse: 89 Respirations: 18 Pulse Ox (%): 96 Assessment & Plan Discharge Plan: Home Plan to discharge in: 24 Hours Physician Review Additional Text: COVID: negative CXR: COMPARISON: Chest Single View dated 12/23/2020; Chest Single View dated 12/08/2020; Chest Single View dated 12/06/2020; Chest Single View dated 10/27/2020; Rest Stress Cardiac Imaging dated 12/25/2020; Thorax Wo Con dated 12/06/2020 FINDINGS: Lines: Left subclavian approach PICC with tip overlying the right cavoatrial junction. Lungs: No evidence of edema or pneumonia. Pleural: No significant pleural effusions or pneumothorax. Cardiac: The heart size is within normal limits. Bones: No acute fractures. IMPRESSION: No acute cardiopulmonary disease. 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 White count improved. Absolute neutrophil remain unchanged. Continue Neupogen. Patient received 2 units of blood yesterday with improvement of hemoglobin. Platelet count slightly decreased. No need to transfuse platelets unless less than 15. Levaquin started yesterday. Case discussed with hematology/oncology. Continue with current treatment plan. Recheck lab tomorrow. If significantly improved consider discharge tomorrow. Hypophosphatemia, hypokalemia: Continue with home potassium medication. Continue with protocol to replace. Chronic pain: Continue with Neurontin Dilaudid. Patient takes medication for pain for her sarcoma. History of DVT on Eliquis: Continue Eliquis. DVT PPX: Continue Eliquis Code status: DNR Discharge Plan: Home Time Spent Managing Pts Care (In Minutes): 55
[2020-12-29 06:41] LABS: Absolute Lymphocytes (CBC) 0.4 K/uL (0.7-4.9); Basophils % 0.1 % (0-1.3); Hematocrit 27.5 % (36.0-45.0); Lymphocytes % 57.9 % (15.3-44.8); MPV 9.5 fL (7.6-11.3); RBC Red Blood Cell Count 3.58 M/uL (3.86-4.86)
[2020-12-29 06:52] LABS: ALT/SGPT 12 U/L (12-78); Albumin 3.2 g/dL (3.4-5.0); Alkaline Phosphatase 113 U/L (45-117); BUN Blood Urea Nitrogen 6 mg/dL (7-18); Bicarbonate 28 mmol/L (21-32); Glucose Level 90 mg/dL (74-106); Magnesium 1.8 mg/dL (1.8-2.4); Phosphorus 1.1 mg/dL (2.5-4.9); Protein, Total 7.3 g/dL (6.4-8.2); Sodium Level 142 mmol/L (136-145)
[2020-12-29 07:01] LABS: AST/SGOT < 3 U/L (15-37); Potassium 2.4 mmol/L (3.5-5.1)
[2020-12-29] MEDS: APIXABAN 5 MG TABLET PO SCH (09:00)
[2020-12-29] MEDS: POTASSIUM CL SA 10 MEQ TAB PO SCH (09:00)
[2020-12-29] MEDS: ENSURE CLEAR 200 ML CAN PO SCH ×2 (09:00→20:13)
[2020-12-29] MEDS: FOLIC ACID 1 MG TABLET PO SCH (10:22)
[2020-12-29] MEDS: POTASS/SODIUM PHOSPHATE 1 PKT POWD.PACK PO SCH ×2 (10:29→13:16)
[2020-12-29] MEDS: GABAPENTIN 400 MG CAP PO SCH ×2 (10:29→20:12)
[2020-12-29] MEDS: KCL 20 MEQ/100 mL IVPB 20 MEQ/100 ML BAG IV SCH ×4 (10:30→23:51)
[2020-12-29] MEDS: DOCUSATE NA 100 MG CAP PO SCH (10:30)
[2020-12-29] MEDS: levoFLOXacin 500 MG TAB PO SCH (10:30)
[2020-12-29] MEDS: TBO-FILGRASTIM 300 MCG/0.5 ML SYR SQ SCH (10:33)
[2020-12-30] MEDS: KCL 20 MEQ/100 mL IVPB 20 MEQ/100 ML BAG IV SCH ×2 (02:22→05:43)
[2020-12-30] MEDS: PROMETHAZINE INJ 25 MG/ML AMP IV PRN ×6 (02:26→21:03)
[2020-12-30] MEDS: HYDROMORPHONE HCL 2 MG/ML inj IV PRN ×6 (02:26→21:01)
--- NOTE | 2020-12-30 06:01 | P.PN ---
Subjective Date of Service: 12/30/20 Primary Care Provider: Dr. Brewer, Dr. Beverly Chief Complaint: Hypokalemia, hypophosphatemia, pancytopenia Subjective: Improving, Doing well Physical Examination - Vital Signs Temperature: 98.5 F Blood Pressure: 105/59 Pulse: 90 Respirations: 18 Pulse Ox (%): 94 - Studies Microbiology Data (last 24 hrs): 12/27/20 01:54 Clean Catch Urine [place] Count - Final BETWEEN 10,000 & 100,000 CFU/ML 12/27/20 01:54 Clean Catch Urine - Final MIXED ELISSA. Assessment & Plan Discharge Plan: Home Plan to discharge in: 24 Hours Physician Review Additional Text: COVID: negative CXR: COMPARISON: Chest Single View dated 12/23/2020; Chest Single View dated 12/08/2020; Chest Single View dated 12/06/2020; Chest Single View dated 10/27/2020; Rest Stress Cardiac Imaging dated 12/25/2020; Thorax Wo Con dated 12/06/2020 FINDINGS: Lines: Left subclavian approach PICC with tip overlying the right cavoatrial junction. Lungs: No evidence of edema or pneumonia. Pleural: No significant pleural effusions or pneumothorax. Cardiac: The heart size is within normal limits. Bones: No acute fractures. IMPRESSION: No acute cardiopulmonary disease. 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 No complaints noted. Patient has received 2 units of blood the other day. He moglobin yesterday remained stable. Patient remains on Epogen. Await results of CBC this morning. If improved will consider discharge today. He is discussed at length with hematology oncology yesterday. . Hypophosphatemia, hypokalemia: Continue with home potassium medication. Replacement protocol in place Chronic pain: Continue with Neurontin, Dilaudid. Patient takes medication for pain for her sarcoma. History of DVT on Eliquis: Continue Eliquis. DVT PPX: Continue Eliquis Code status: DNR Discharge Plan: Home Time Spent Managing Pts Care (In Minutes): 55
[2020-12-30] MEDS: GABAPENTIN 400 MG CAP PO SCH ×2 (08:00→21:03)
[2020-12-30] MEDS: levoFLOXacin 500 MG TAB PO SCH (08:54)
[2020-12-30] MEDS: DOCUSATE NA 100 MG CAP PO SCH (08:56)
[2020-12-30] MEDS: FOLIC ACID 1 MG TABLET PO SCH (08:56)
[2020-12-30] MEDS: POTASSIUM CL SA 10 MEQ TAB PO SCH (08:56)
[2020-12-30] MEDS: ENSURE CLEAR 200 ML CAN PO SCH ×2 (08:57→21:00)
[2020-12-30] MEDS: TBO-FILGRASTIM 300 MCG/0.5 ML SYR SQ SCH (09:43)
[2020-12-30 11:11] VITALS: O2SAT 94
[2020-12-30 12:41] LABS: Albumin 2.8 g/dL (3.4-5.0); Bilirubin Total 0.4 mg/dL (0.2-1.0); Magnesium 1.8 mg/dL (1.8-2.4); Protein, Total 6.6 g/dL (6.4-8.2)
[2020-12-30 12:42] LABS: Absolute Lymphocytes (CBC) 0.5 K/uL (0.7-4.9); Basophils % 0.5 % (0-1.3); Hematocrit 25.3 % (36.0-45.0); Lymphocytes % 18.1 % (15.3-44.8); MPV 8.6 fL (7.6-11.3); Phosphorus 0.9 mg/dL (2.5-4.9); RBC Red Blood Cell Count 3.29 M/uL (3.86-4.86)
[2020-12-30 12:43] LABS: Potassium 2.9 mmol/L (3.5-5.1)
[2020-12-30] MEDS ORDERED: KCL 20 MEQ/100 mL IVPB 20 MEQ/100 ML BAG IV SCH (13:00)
[2020-12-30] MEDS ORDERED: POTASSIUM 25 MEQ EFFERV TAB PO ONE (13:06)
--- NOTE | 2020-12-30 13:11 | P.DS ---
Admission Date: 12/27/20 Discharge Date: 12/30/20 Primary Care Provider: Dr. Brewer, Oncology-Dr. Beverly Disposition: ROUTINE DISCHARGE Discharge Condition: GOOD Reason for Admission: Hypokalemia, hypophosphatemia, pancytopenia Consultations: none Procedures: COVID: negative CXR: COMPARISON: Chest Single View dated 12/23/2020; Chest Single View dated 12/08/2020; Chest Single View dated 12/06/2020; Chest Single View dated 10/27/2020; Rest Stress Cardiac Imaging dated 12/25/2020; Thorax Wo Con dated 12/06/2020 FINDINGS: Lines: Left subclavian approach PICC with tip overlying the right cavoatrial junction. Lungs: No evidence of edema or pneumonia. Pleural: No significant pleural effusions or pneumothorax. Cardiac: The heart size is within normal limits. Bones: No acute fractures. IMPRESSION: No acute cardiopulmonary disease. 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 Patient was admitted for further evaluation. Patient also found to have pancytopenia. Electrolyte abnormalities also identified. Patient admitted for treatment. Hospital Course: Patient presented with pancytopenia related to chemotherapy for sarcoma. Case discussed at length with her refresh technician oncologist. Patient was admitted for treatment. Patient required 2 units of blood transfusion due to low hemoglobin. This stabilized. During the course of her stay patient also required Neupogen. At discharge white count 2.5, hemoglobin 8.3. Platelet count 20. Case discussed at length with her refresh technician oncologist. At discharge she will follow up on Friday to have repeat labs done with hematology oncology. She will need to call her hematology oncologist to make arrangements for this. Patient will continue with Levaquin 500 mg daily for 5 more days due to her pancytopenia. Recommend follow-up with PCP in 1 week to [facility]. Recommend follow-up with hematology oncology within 1 week to further monitor her care. Patient also with chronic hypokalemia and hypophosphatemia. This was replaced during the course of her stay. At discharge patient will continue with rich diet and potassium and phosphorus. At discharge she will continue with Klor-Con 40 mEq daily. Recommend to recheck labBMP within 1 week to monitor progress. Patient with chronic pain. At discharge she will continue with chronic pain regimen. Patient takes morphine sustained release 100 mg 1 pill twice daily. Patient also takes Dilaudid 4 mg short acting 1 pill every 4 hours as needed for severe pain. Patient also takes gabapentin 800 mg 1 pill twice daily. Patient with history of DVT on Eliquis. Eliquis was held due to her pancytopenia. Case discussed at length with her refresh technician oncologist. At discharge she will continue to hold Eliquis until hematology and oncology recommend to restart. This will likely have to wait until her platelet count is significantly improved. Further instruction on Eliquis can be provided by hematology oncology this week. Patient with chronic constipation due to her chronic pain. At discharge patient will continue with stool softener docusate 100 mg daily. Patient will continue with her other supplementation including Ensure 1 can twice daily and folic acid 1 mg daily. Patient also takes olanzapine 2.5 mg at bedtime as needed. Vital Signs/Physical Exam: Temp Pulse Resp BP Pulse Ox 98.6 F 94 H 16 111/62 97 12/30/20 11:50 12/30/20 11:50 12/30/20 11:50 12/30/20 11:50 12/30/20 11:50 General: Alert, In no apparent distress, Oriented x3, Cooperative HEENT: Atraumatic Neck: Supple Respiratory: Clear to auscultation bilaterally, Normal air movement Cardiovascular: Normal pulses, Regular rate/rhythm Gastrointestinal: Normal bowel sounds, No masses, No rebound, No guarding Musculoskeletal: No erythema, No tenderness, No warmth Integumentary: No tenderness/swelling Neurological: Normal speech, Normal strength at 5/5 x4 extr, Normal tone, Normal affect Laboratory Data at Discharge: WBC 2.50 K/uL (4.3-10.9) L D 12/30/20 12:04 Hgb 8.3 g/dL (12.0-15.0) L 12/30/20 12:04 Hct 25.3 % (36.0-45.0) L 12/30/20 12:04 Plt Count 20 K/uL (152-406) L* 12/30/20 12:04 PT 14.7 SECONDS (9.5-12.5) H 12/26/20 23:51 INR 1.28 12/26/20 23:51 Sodium 145 mmol/L (136-145) 12/30/20 12:04 Potassium 2.9 mmol/L (3.5-5.1) L* 12/30/20 12:04 BUN 7 mg/dL (7-18) 12/30/20 12:04 Creatinine 0.84 mg/dL (0.55-1.3) 12/30/20 12:04 Glucose 95 mg/dL (74-106) 12/30/20 12:04 Phosphorus 0.9 mg/dL (2.5-4.9) L* 12/30/20 12:04 Magnesium 1.8 mg/dL (1.8-2.4) 12/30/20 12:04 Total Bilirubin 0.4 mg/dL (0.2-1.0) 12/30/20 12:04 AST 5 U/L (15-37) L 12/30/20 12:04 ALT 12 U/L (12-78) 12/30/20 12:04 Alkaline Phosphatase 105 U/L (45-117) 12/30/20 12:04 Troponin I < 0.02 ng/mL (0.0-0.045) 12/27/20 12:00 Lipase 46 U/L (73-393) L 12/26/20 23:51 Home Medications: Folic Acid 1 mg PO DAILY 12/07/20 Gabapentin [Neurontin] 800 mg PO BID 12/07/20 Hydromorphone [Dilaudid*] 4 mg PO Q4HP PRN 12/07/20 Morphine Sulfate [Morphine Sulfate ER] 100 mg PO Q12H 12/07/20 OLANZapine [Olanzapine] 2.5 mg PO BEDTIME PRN PRN 12/07/20 Promethazine Tab [Phenergan*] 25 mg PO Q4H PRN 12/23/20 Docusate [Colace Cap*] 100 mg PO DAILY #30 cap 12/30/20 Ensure Clear 237 ml PO BID #60 can 12/30/20 Potassium Chloride [K-Dur] 40 meq PO DAILY #60 tab.er.prt 12/30/20 levoFLOXacin [Levaquin*] 500 mg PO DAILY #5 tab 12/30/20 New Medications: Docusate [Colace Cap*] 100 mg PO DAILY #30 cap Ensure Clear 237 ml PO BID #60 can Potassium Chloride [K-Dur] 40 meq PO DAILY #60 tab.er.prt levoFLOXacin [Levaquin*] 500 mg PO DAILY #5 tab Physician Discharge Instructions: Patient presented with pancytopenia related to chemotherapy for sarcoma. Case discussed at length with her refresh technician oncologist. Patient was admitted for treatment. Patient required 2 units of blood transfusion due to low hemoglobin. This stabilized. During the course of her stay patient also required Neupogen. At discharge white count 2.5, hemoglobin 8.3. Platelet count 20. Case discussed at length with her refresh technician oncologist. At discharge she will follow up on Friday to have repeat labs done with hematology oncology. She will need to call her hematology oncologist to make arrangements for this. Patient will continue with Levaquin 500 mg daily for 5 more days due to her pancytopenia. Recommend follow-up with PCP in 1 week to [facility]. Recommend follow-up with hematology oncology within 1 week to further monitor her care. Patient also with chronic hypokalemia and hypophosphatemia. This was replaced during the course of her stay. At discharge patient will continue with rich diet and potassium and phosphorus. At discharge she will continue with Klor-Con 40 mEq daily. Recommend to recheck labBMP within 1 week to monitor progress. Patient with chronic pain. At discharge she will continue with chronic pain regimen. Patient takes morphine sustained release 100 mg 1 pill twice daily. Patient also takes Dilaudid 4 mg short acting 1 pill every 4 hours as needed for severe pain. Patient also takes gabapentin 800 mg 1 pill twice daily. Patient with history of DVT on Eliquis. Eliquis was held due to her pancytopenia. Case discussed at length with her refresh technician oncologist. At discharge she will continue to hold Eliquis until hematology and oncology recommend to restart. This will likely have to wait until her platelet count is significantly improved. Further instruction on Eliquis can be provided by matology oncology this week. Patient with chronic constipation due to her chronic pain. At discharge patient will continue with stool softener docusate 100 mg daily. Patient will continue with her other supplementation including Ensure 1 can twice daily and folic acid 1 mg daily. Patient also takes olanzapine 2.5 mg at bedtime as needed. Diet: AHA Activity: Ad stella Followup: NONE,NONE [Primary Care Provider] - Time spent managing pt's care (in minutes): 55
[2020-12-30] MEDS ORDERED: POTASSIUM PHOS 30 MM in NA CHLORIDE 0.9% 500 ML IV ONE (14:00)
[2020-12-30 20:55] VITALS: BP 114/58; TEMP 99.6
[2020-12-30] MEDS: APIXABAN 5 MG TABLET PO SCH (21:00)
[2020-12-31] MEDS ORDERED: POTASSIUM CL SA 10 MEQ TAB PO SCH (09:00)
== END 2020-12-30 23:00 | disposition home or self-care (01) | DRG 809 ==
LOC: ER 22:45 → 2ND 12-27 01:59
PROVIDERS: ADMIT Family Medicine; ATTEND Family Medicine
PROC: 30233N1 Transfusion of Nonautologous Red Blood Cells into Peripheral Vein, Percutaneous Approach (ICD-10-PCS; principal; 2020-12-28)
DX: D61.810 Antineoplastic chemotherapy induced pancytopenia (principal); C49.9 Malignant neoplasm of connective and soft tissue, unspecified; E87.6 Hypokalemia; G89.3 Neoplasm related pain (acute) (chronic); E83.39 Other disorders of phosphorus metabolism; I10 Essential (primary) hypertension; K59.09 Other constipation; D64.81 Anemia due to antineoplastic chemotherapy; T45.1X5A Adverse effect of antineoplastic and immunosuppressive drugs, initial encounter; Z66 Do not resuscitate; Z79.01 Long term (current) use of anticoagulants; Z79.899 Other long term (current) drug therapy; Z85.3 Personal history of malignant neoplasm of breast; Z92.21 Personal history of antineoplastic chemotherapy; Z90.710 Acquired absence of both cervix and uterus; Z90.13 Acquired absence of bilateral breasts and nipples; Z86.718 Personal history of other venous thrombosis and embolism; Z91.041 Radiographic dye allergy status; Z60.2 Problems related to living alone; Z96.641 Presence of right artificial hip joint; Z20.822 Contact with and (suspected) exposure to COVID-19
CPT/HCPCS: 36415; 36430; 71045; 80048; 80053; 80076; 81003; 81015; 83605; 83690; 83735; 83880; 84100; 84132; 84484; 85014; 85018; 85025; 85044; 85379; 85610; 86850; 86900; 86901; 87040; 87086; 87088; 93005; 96365; 96366; 96375; 99285; J0692; J1170; J1447; J1940; J2550; J3480; J7030; J7040; J7050; P9016; U0003

== ENCOUNTER 2021-01-01 03:55 | Emergency (ER) | payer OTHER ==
[2021-01-01] MEDS ORDERED: PROMETHAZINE INJ 25 MG/ML AMP ONE ×2 (04:52→07:53)
[2021-01-01] MEDS ORDERED: HYDROMORPHONE HCL 2 MG/ML inj ONE ×2 (04:53→07:53)
[2021-01-01 04:54] LABS: Absolute Lymphocytes (CBC) 0.6 K/uL (0.7-4.9); Basophils % 0.3 % (0-1.3); Hematocrit 26.8 % (36.0-45.0); Lymphocytes % 6.4 % (15.3-44.8); MPV 8.2 fL (7.6-11.3); RBC Red Blood Cell Count 3.47 M/uL (3.86-4.86)
[2021-01-01 04:56] LABS: Protime INR 1.26
[2021-01-01 05:17] LABS: Anisocytosis 1+; Blood Morphology Comment NOTED (NOT SEEN); Platelet Estimate ADEQ
[2021-01-01 05:31] LABS: ALT/SGPT 9 U/L (12-78); AST/SGOT 7 U/L (15-37); Albumin 2.9 g/dL (3.4-5.0); Alkaline Phosphatase 120 U/L (45-117); BUN Blood Urea Nitrogen 6 mg/dL (7-18); Bicarbonate 30 mmol/L (21-32); Bilirubin Direct 0.2 mg/dL (0-0.2); Bilirubin Total 0.4 mg/dL (0.2-1.0); Glucose Level 97 mg/dL (74-106); Magnesium 1.6 mg/dL (1.8-2.4); NT PRO-BNP 372 pg/mL (<125); Protein, Total 6.8 g/dL (6.4-8.2); Sodium Level 144 mmol/L (136-145); Troponin (Emerg Dept Use Only) < 0.02 ng/mL (0.0-0.045)
[2021-01-01 05:43] LABS: Potassium 2.6 mmol/L (3.5-5.1)
--- NOTE | 2021-01-01 06:29 | EDPHYS ---
Physician Documentation [facility] Name: Sade Galdamez Age: 60 yrs Sex: Female : 1960 Arrival Date: 01/01/2021 Time: 04:03 Bed 4 Private MD: ED Physician Hayden Mello HPI: 01/01 04:55 This 60 yrs old Black Female presents to ER via EMS with unknown complaint. pkl 04:55 The patient or guardian reports chest pain that is located primarily in the substernal pkl area. Onset: today. The pain does not radiate. Associated signs and symptoms: The patient has no apparent associated signs or symptoms. The chest pain is described as dull. The patient has experienced similar episodes in the past, a few times. The patient has been recently been admitted at [facility], was discharged last week, for similar complaints. 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 - Social history:: Smoking status: Patient denies any tobacco usage or history of. ROS: 04:55 Eyes: Negative for injury, pain, redness, and discharge, ENT: Negative for injury, pkl pain, and discharge, Neck: Negative for injury, pain, and swelling. 04:55 Cardiovascular: Positive for chest pain. 04:55 Respiratory: Negative for cough, shortness of breath. 04:55 Abdomen/GI: Negative for abdominal pain, nausea, vomiting, and diarrhea. 04:55 Back: Negative for acute changes. 04:55 : Negative for urinary symptoms. 04:55 MS/extremity: Negative for acute changes. 04:55 Skin: Negative for rash. 04:55 Neuro: Negative for altered mental status, loss of consciousness. Exam: 04:55 Head/Face: Normocephalic, atraumatic. Eyes: Pupils equal round and reactive to light, pkl extra-ocular motions intact. Lids and lashes normal. Conjunctiva and sclera are non-icteric and not injected. Cornea within normal limits. Periorbital areas with no swelling, redness, or edema. ENT: Nares patent. No nasal discharge, no septal abnormalities noted. Tympanic membranes are normal and external auditory canals are clear. Oropharynx with no redness, swelling, or masses, exudates, or evidence of obstruction, uvula midline. Mucous membranes moist. Neck: Trachea midline, no thyromegaly or masses palpated, and no cervical lymphadenopathy. Supple, full range of motion without nuchal rigidity, or vertebral point tenderness. No Meningismus. Chest/axilla: Normal chest wall appearance and motion. Nontender with no deformity. No lesions are appreciated. Cardiovascular: Regular rate and rhythm with a normal S1 and S2. No gallops, murmurs, or rubs. Normal PMI, no JVD. No pulse deficits. Respiratory: Lungs have equal breath sounds bilaterally, clear to auscultation and percussion. No rales, rhonchi or wheezes noted. No increased work of breathing, no retractions or nasal flaring. Abdomen/GI: Soft, non-tender, with normal bowel sounds. No distension or tympany. No guarding or rebound. No evidence of tenderness throughout. Back: No spinal tenderness. No costovertebral tenderness. Full range of motion. Skin: Warm, dry with normal turgor. Normal color with no rashes, no lesions, and no evidence of cellulitis. MS/ Extremity: Pulses equal, no cyanosis. Neurovascular intact. Full, normal range of motion. Neuro: Awake and alert, GCS 15, oriented to person, place, time, and situation. Cranial nerves II-XII grossly intact. Motor strength 5/5 in all extremities. Sensory grossly intact. Cerebellar exam normal. Normal gait. Vital Signs: 04:04 BP 128 / 82; Pulse 103; Resp 20; Temp 98.4; Pulse Ox 97% on R/A; Weight 113.4 kg; lh3 Height 5 ft. 5 in. (165.10 cm) (R); 07:00 Pulse 95; Resp 11; Pulse Ox 96% ; bp 04:04 Body Mass Index 41.60 (113.40 kg, 165.10 cm) 3 MDM: 04:13 Patient medically screened. pkl 06:23 Data reviewed: vital signs, nurses notes, lab test result(s), EKG, radiologic studies, pkl plain films. 06:23 ED course: Discussed lab, EKG and imaging studies with patient. Advise to keep pkl appointment her Oncologist today. Patient understood instructions. 01/01 04:20 Order name: Basic Metabolic Panel pkl 01/01 04:20 Order name: CBC with Diff pkl 01/01 04:20 Order name: LFT's; Complete Time: 05:43 pkl 01/01 04:20 Order name: Magnesium; Complete Time: 05:43 pkl 01/01 04:20 Order name: NT PRO-BNP; Complete Time: 05:43 pkl 01/01 04:20 Order name: PT-INR; Complete Time: 04:59 pkl 01/01 04:20 Order name: Troponin (emerg Dept Use Only); Complete Time: 05:43 pkl 01/01 04:20 Order name: XRAY Chest (1 view); Complete Time: 09:08 pkl 01/01 04:20 Order name: Basic Metabolic Panel; Complete Time: 05:43 EDMS 01/01 04:20 Order name: CBC with Automated Diff; Complete Time: 05:34 EDMS 01/01 04:58 Order name: Manual Differential; Complete Time: 05:34 EDMS 01/01 04:20 Order name: EKG; Complete Time: 04:20 pkl 01/01 04:20 Order name: Cardiac monitoring; Complete Time: 04:45 pkl 01/01 04:20 Order name: EKG - Nurse/Tech; Complete Time: 04:22 pkl 01/01 04:20 Order name: IV Saline Lock; Complete Time: 04:45 pkl 01/01 04:20 Order name: Labs collected and sent; Complete Time: 04:45 pkl 01/01 04:20 Order name: O2 Per Protocol; Complete Time: 04:45 pkl 01/01 04:20 Order name: O2 Sat Monitoring; Complete Time: 04:45 pkl Administered Medications: 04:44 Drug: Dilaudid (HYDROmorphone) 2 mg Route: IVP; Site: PICC; lh3 06:02 Follow up: Response: No adverse reaction; Pain is decreased 3 04:44 Drug: Phenergan (promethazine) 25 mg Route: IVP; Site: PICC; 3 06:02 Follow up: Response: No adverse reaction 3 06:38 Drug: Potassium Chloride 20 mEq Route: IV; Rate: calculated rate; Site: PICC; 3 06:38 Drug: K-Lyte (potassium) Effervescent Tablet 50 mEq Route: PO; 3 07:21 Follow up: Response: No adverse reaction bp 07:30 Drug: Dilaudid (HYDROmorphone) 2 mg Route: IVP; Site: PICC; bp 07:30 Drug: Phenergan (promethazine) 25 mg Route: IVP; Site: PICC; bp Disposition Summary: 01/01/21 06:28 Discharge Ordered Location: Home pkl Problem: new pkl Symptoms: have improved pkl Condition: Stable pkl Diagnosis - Chest pain. Hypokalemia ( Chronic ) pkl Followup: pkl - With: Private Physician - When: Today - Reason: Re-evaluation by your physician Forms: - Medication Reconciliation Form pkl - Thank You Letter pkl - Antibiotic Education pkl - Prescription Opioid Use pkl Signatures: Dispatcher [employer] Hayden Loera MD MD pkl Meir Miller, CAR WASH ATTENDANT-C CAR WASH ATTENDANT-Cla1 Jarad Ahn RN RN Michelle Xie RN RN 3 Meir Miller ga3
--- NOTE | 2021-01-01 06:29 | ER ---
Nurse's Notes [facility] Name: Sade Galdamez Age: 60 yrs Sex: Female : 1960 Arrival Date: 01/01/2021 Time: 04:03 Bed 4 Private MD: Diagnosis: Chest pain. Hypokalemia ( Chronic ) Presentation: 01/01 04:04 Chief complaint: EMS states: that patient was here on Friday for chest pain. Received a lh3 couple of units of blood and potassium. Pt has tried to wait it out to see if chest pain goes away, but has not. Coronavirus screen: Vaccine status: Patient reports receiving the 2nd dose of the covid vaccine. Date 2020. Ebola Screen: No symptoms or risks identified at this time. Initial Sepsis Screen: Does the patient meet any 2 criteria? HR > 90 bpm. No. Patient's initial sepsis screen is negative. Does the patient have a suspected source of infection? No. Patient's initial sepsis screen is negative. Risk Assessment: Do you want to hurt yourself or someone else? Patient reports no desire to harm self or others. Onset of symptoms was January 01, 2021. 04:04 Method Of Arrival: EMS 3 04:04 Acuity: ABDIRIZAK 2 3 Triage Assessment: 04:08 General: Appears in no apparent distress. General: Behavior is calm, cooperative, lh3 appropriate for age. Pain: Complains of pain in chest. Pain:. 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 - Social history:: Smoking status: Patient denies any tobacco usage or history of. Screenin:07 Abuse screen: Denies threats or abuse. Nutritional screening: No deficits noted. lh3 Tuberculosis screening: No symptoms or risk factors identified. Fall Risk IV access (20 points). Assessment: 05:07 General: Appears in no apparent distress. Behavior is calm, cooperative, appropriate lh3 for age. Pain: Complains of pain in chest. Cardiovascular: Reports chest pain, Rhythm is sinus rhythm. 07:00 Reassessment: RECD REPORT FROM MAREN ROSEN. 60YO BF P/W CHRONIC CHEST PAIN. KCL bp INFUSING. PT TBDC AFTER MEDICATION COMPLETED. Vital Signs: 04:04 BP 128 / 82; Pulse 103; Resp 20; Temp 98.4; Pulse Ox 97% on R/A; Weight 113.4 kg; lh3 Height 5 ft. 5 in. (165.10 cm) (R); 07:00 Pulse 95; Resp 11; Pulse Ox 96% ; bp 04:04 Body Mass Index 41.60 (113.40 kg, 165.10 cm) 3 ED Course: 04:03 Patient arrived in ED. bp1 04:06 Triage completed. lh3 04:08 Arm band placed on right wrist. lh3 04:08 EKG done, by ED staff. dc2 04:13 Hayden Mello MD is Attending Physician. pkl 04:30 XRAY Chest (1 view) In Process Unspecified. EDMS 04:45 CBC with Automated Diff Sent. lh3 04:45 Basic Metabolic Panel Sent. lh3 04:45 Basic Metabolic Panel Sent. lh3 04:45 CBC with Diff Sent. lh3 04:45 LFT's Sent. lh3 04:45 Magnesium Sent. lh3 04:45 NT PRO-BNP Sent. lh3 04:45 PT-INR Sent. lh3 04:45 Troponin (emerg Dept Use Only) Sent. lh3 05:07 Patient has correct armband on for positive identification. Bed in low position. Call 3 light in reach. Side rails up X 1. Side rails up X2. environmental monitoring specialist on. Pulse ox on. NIBP on. Door closed. Verbal reassurance given. 05:07 No provider procedures requiring assistance completed. Accessed PICC line. Clean \T\ dry. lh3 Dressing intact. Good blood return. Flushes easily. 05:07 Inserted pt has PICC line already. 3 07:12 Jarad Ahn, SILAS is Primary Nurse. bp Administered Medications: 04:44 Drug: Dilaudid (HYDROmorphone) 2 mg Route: IVP; Site: PICC; 3 06:02 Follow up: Response: No adverse reaction; Pain is decreased lh3 04:44 Drug: Phenergan (promethazine) 25 mg Route: IVP; Site: PICC; lh3 06:02 Follow up: Response: No adverse reaction lh3 06:38 Drug: Potassium Chloride 20 mEq Route: IV; Rate: calculated rate; Site: PICC; 3 06:38 Drug: K-Lyte (potassium) Effervescent Tablet 50 mEq Route: PO; lh3 07:21 Follow up: Response: No adverse reaction bp 07:30 Drug: Dilaudid (HYDROmorphone) 2 mg Route: IVP; Site: PICC; bp 07:30 Drug: Phenergan (promethazine) 25 mg Route: IVP; Site: PICC; bp Outcome: 06:28 Discharge ordered by . zeinab 10:41 Patient left the ED. ll1 Signatures: Dispatcher [employer] EDMS Hayden Mello MD MD pkl Peltier, Brian, RN RN bp Clare Washington RN RN 1 Angelic Johnston Latisha, RN RN 3 Nichole Byrd RN RN dc2
[2021-01-01] MEDS ORDERED: POTASSIUM 25 MEQ EFFERV TAB ONE (06:32)
[2021-01-01] MEDS ORDERED: KCL 20 MEQ/100 mL IVPB 20 MEQ/100 ML BAG IV ONE (06:32)
[2021-01-01] MEDS ORDERED: NA CHLORIDE 0.9% 250 ML ONE (06:33)
--- NOTE | 2021-01-01 07:37 | RAD REPORT ---
EXAM DESCRIPTION: RAD - Chest Single View - 01/01/2021 4:30 am CLINICAL HISTORY: CHEST PAIN COMPARISON: Chest Single View dated 12/26/2020; Chest Single View dated 12/23/2020; Chest Single View dated 12/08/2020; Chest Single View dated 12/06/2020 FINDINGS: Lines: None. Lungs: No evidence of edema or pneumonia. Pleural: No significant pleural effusions or pneumothorax. Cardiac: The heart size is within normal limits. Bones: No acute fractures. Other: IMPRESSION: No acute cardiopulmonary disease.
--- NOTE | 2021-01-01 08:57 | EKG ---
Test Date: 2021-01-01 Test Time: 03:08:25 Caustic Strength Inspector: POLO MEASUREMENT RESULTS: Intervals: Rate: 102 KS: 146 QRSD: 92 QT: 348 QTc: 453 [place]: P: 55 KS: 146 QRS: 0 T: 165 INTERPRETIVE STATEMENTS: Sinus tachycardia ST & T wave abnormality, consider inferior ischemia ST & T wave abnormality, consider anterolateral ischemia Abnormal ECG Compared to ECG 12/26/2020 22:59:55 Sinus rhythm no longer present Prolonged QT interval no longer present ST (T wave) deviation still present Possible ischemia still present Electronically Signed On 01-01-21 08:57:13 CDT by Antony Roca
[2021-01-01] MEDS ORDERED: HEPARIN 500 UNIT/5 ML SYR IV ONE (09:20)
[2021-01-01] MEDS ORDERED: ALTEPLASE 2 MG/VIAL IV ONE (09:21)
[2021-01-01] MEDS ORDERED: WATER FOR INJ,STERILE 10 ML ONE (09:21)
[2021-01-01 10:48] VITALS: BP 128/82; TEMP 98.4
[2021-01-01 10:49] VITALS: O2SAT 96
== END 2021-01-01 10:41 | disposition home or self-care (01) ==
LOC: ER 03:55
DX: E87.6 Hypokalemia (principal); I10 Essential (primary) hypertension; Z79.01 Long term (current) use of anticoagulants; Z85.3 Personal history of malignant neoplasm of breast; Z90.13 Acquired absence of bilateral breasts and nipples; Z91.048 Other nonmedicinal substance allergy status
CPT/HCPCS: 93005; 85025; 80048; 36415; 83735; 85610; 80076; 84484; 83880; 71045; 96375; 96374; 99285; J2550 ×2; J3480; J1170 ×2; J2997; J1642; J7050

== ENCOUNTER 2021-01-02 12:56 | Inpatient (IN) | payer OTHER ==
[2021-01-02 13:28] LABS: Absolute Lymphocytes (CBC) 0.7 K/uL (0.7-4.9); Basophils % 0.3 % (0-1.3); Hematocrit 27.2 % (36.0-45.0); Lymphocytes % 7.7 % (15.3-44.8); MPV 8.2 fL (7.6-11.3); RBC Red Blood Cell Count 3.51 M/uL (3.86-4.86)
[2021-01-02] MEDS ORDERED: NA CHLORIDE 0.9% 1,000 ML ONE (13:28)
[2021-01-02] MEDS ORDERED: PROMETHAZINE INJ 25 MG/ML AMP ONE ×3 (13:28→20:15)
[2021-01-02 13:29] LABS: Protime INR 1.43
[2021-01-02 13:49] LABS: Bilirubin Direct 0.2 mg/dL (0-0.2); Bilirubin Total 0.5 mg/dL (0.2-1.0); Magnesium 1.7 mg/dL (1.8-2.4); Protein, Total 7.1 g/dL (6.4-8.2); Troponin (Emerg Dept Use Only) 0.02 ng/mL (0.0-0.045)
[2021-01-02 13:50] LABS: Potassium 2.6 mmol/L (3.5-5.1)
[2021-01-02] MEDS ORDERED: HYDROMORPHONE HCL 2 MG/ML inj ONE ×3 (14:17→20:02)
[2021-01-02] MEDS ORDERED: KCL 20 MEQ/100 mL IVPB 20 MEQ/100 ML BAG IV ONE (14:30)
[2021-01-02] MEDS ORDERED: POTASSIUM 25 MEQ EFFERV TAB ONE (14:30)
[2021-01-02] MEDS ORDERED: Magnesium Sulfate 2gm IVPB 2 G/50 ML BAG IV ONE (14:30)
--- NOTE | 2021-01-02 15:08 | RAD REPORT ---
EXAM DESCRIPTION: Claudia Single View01/02/2021 2:16 pm CLINICAL HISTORY: Chest pain COMPARISON: January 01, 2021 FINDINGS: The lungs appear clear of acute infiltrate. The heart is mildly enlarged. PICC line with its tip in the superior vena cava IMPRESSION: No acute abnormalities displayed
--- NOTE | 2021-01-02 15:15 | ER ---
Nurse's Notes [facility] Name: Sade Galdamez Age: 60 yrs Sex: Female : 1960 Arrival Date: 01/02/2021 Time: 12:57 Bed 4 Private MD: Diagnosis: Hypokalemia;Chest pain, unspecified Presentation: 01/02 12:59 Chief complaint: Patient states: Still has CP. Was seen here yesterday also. ll1 Coronavirus screen: Client denies travel out of the [place] in the last 14 days. Ebola Screen: Patient denies travel to an Ebola-affected area in the 21 days before illness onset. Initial Sepsis Screen: Does the patient meet any 2 criteria? No. Patient's initial sepsis screen is negative. Does the patient have a suspected source of infection? No. Patient's initial sepsis screen is negative. Risk Assessment: Do you want to hurt yourself or someone else? Patient reports no desire to harm self or others. Onset of symptoms is unknown. 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 - Social history:: Smoking status: Patient denies any tobacco usage or history of. Screenin:28 Abuse screen: Denies threats or abuse. Nutritional screening: patient on chemotherapy . ap3 Tuberculosis screening: No symptoms or risk factors identified. Fall Risk No fall in past 12 months (0 pts). Secondary diagnosis (15 points) impaired mobility, IV access (20 points). Ambulatory Aid- None/Bed Rest/Nurse Assist (0 pts). Gait- Weak (10 pts.). Mental Status- Oriented to own ability (0 pts). Total Schaeffer Fall Scale indicates High Risk Score (45 or more points). Fall prevention measures have been instituted. Side Rails Up X 2 Placed Close to Nursing Station Frequent Obs/Assessments Occuring As available patient and family educated on Fall Prevention Program and Strategies. Assessment: 13:27 General: Appears in no apparent distress. comfortable, Behavior is calm, cooperative, ap3 appropriate for age. Pain: Complains of pain in xiphoid area and mid-sternal area Pain does not radiate. Pain began gradually. Neuro: Level of Consciousness is awake, alert, obeys commands, Oriented to person, place, time, situation, Appropriate for age Speech is normal. Cardiovascular: Reports chest pain, Denies lightheadedness, shortness of breath, Capillary refill < 3 seconds Patient's skin is warm and dry. Respiratory: Airway is patent Respiratory effort is even, unlabored, Respiratory pattern is regular, symmetrical. 15:00 Reassessment: Patient and/or family updated on plan of care and expected duration. Pain ap3 level reassessed. Patient is alert, oriented x 3, equal unlabored respirations, skin warm/dry/pink. 17:30 Reassessment: No changes from previously documented assessment. Patient and/or family ap3 updated on plan of care and expected duration. Pain level reassessed. Patient is alert, oriented x 3, equal unlabored respirations, skin warm/dry/pink. patient updated on admission status. Vital Signs: 13:29 BP 149 / 88; Pulse 108; Resp 17; Temp 98.6(O); Pulse Ox 100% on R/A; ap3 14:30 BP 134 / 76; Pulse 91; Pulse Ox 99% on R/A; ap3 15:30 BP 116 / 75; Pulse 99; Pulse Ox 99% on R/A; ap3 16:30 BP 126 / 53; Pulse 89; Pulse Ox 100% on R/A; ap3 17:30 BP 124 / 74; Pulse 93; Pulse Ox 100% on R/A; ap3 18:30 BP 125 / 79; Pulse 92; Pulse Ox 100% on R/A; ap3 ED Course: 12:57 Patient arrived in ED. ds1 12:59 Scott Cortez MD is Attending Physician. ma2 12:59 Nicole Zimmerman RN is Primary Nurse. ap3 12:59 Arm band placed on Patient placed in an exam room, on a stretcher. ll1 13:00 Triage completed. ll1 13:14 Accessed PICC line. Clean \\T\\ dry. Dressing intact. Good blood return. Flushes easily. ap3 13:29 Patient has correct armband on for positive identification. Bed in low position. Call ap3 light in reach. Side rails up X2. cardiac monitor on. Pulse ox on. NIBP on. Door closed. Noise minimized. 13:29 Patient maintains SpO2 saturation greater than 95% on room air. ap3 13:51 Notified ED physician of a critical lab result(s). Potassium 2.6. ll1 14:16 XRAY Chest (1 view) In Process Unspecified. EDMS 15:14 Scott Coffey MD is Hospitalizing Provider. ma2 19:19 Primary Nurse role handed off by Nicole Zimmerman RN tt3 19:45 COVID-19 (Coronavirus) Document "Date of Onset" if Symptomatic Sent. wg 19:45 CBC with Automated Diff Sent. wg 19:45 CBC with Automated Diff Sent. wg 19:45 Troponin I Sent. wg 19:46 Magnesium Sent. wg 19:46 Troponin I Sent. wg 19:46 Troponin I Sent. wg 19:46 Basic Metabolic Panel Sent. wg 19:46 Lipid Profile Sent. wg 19:46 Lipid Profile Sent. wg 19:46 Magnesium Sent. wg 19:46 Basic Metabolic Panel Sent. wg 19:46 Basic Metabolic Panel Sent. wg 19:46 Basic Metabolic Panel Sent. wg 19:46 Basic Metabolic Panel Sent. wg 19:46 CBC with Diff Sent. wg 19:46 LFT's Sent. wg 19:46 Magnesium Sent. wg 19:47 Blood Culture Adult (2) Sent. wg 21:45 CORONAVIRUS Sent. sj1 22:26 Accessed Patient admitted, IV remains in place. wg Administered Medications: 13:25 Drug: Phenergan (promethazine) 25 mg Route: IVP; Site: left upper arm; ap3 15:43 Follow up: Response: No adverse reaction; Nausea is decreased ap3 13:26 Drug: NS 0.9% 1000 ml Route: IV; Rate: 1 bolus; Site: left upper arm; ap3 15:43 Follow up: IV Status: Completed infusion; IV Intake: 1000ml ap3 13:57 Drug: Dilaudid (HYDROmorphone) 1 mg Route: IVP; Site: left upper arm; ap3 14:50 Follow up: Response: No adverse reaction; Pain is unchanged, physician notified ap3 14:21 Drug: Klor-Con (potassium) Effervescent Tablet 25 mEq Route: PO; ap3 14:49 Follow up: Response: No adverse reaction ap3 14:21 Drug: Magnesium Sulfate 2 grams Route: IVPB; Infused Over: 2 hrs; Site: left upper arm; ap3 15:42 Follow up: IV Status: Completed infusion ap3 14:21 Drug: NS 0.9% 1000 ml Route: IV; Rate: 1 bolus; Site: left upper arm; ap3 18:36 Follow up: IV Status: Completed infusion; IV Intake: 1000ml ap3 14:49 Drug: Dilaudid (HYDROmorphone) 1 mg Route: IVP; Site: left upper arm; ap3 15:43 Follow up: Response: No adverse reaction ap3 15:42 Drug: Potassium Chloride 20 mEq Route: IV; Rate: calculated rate; Site: left upper arm; ap3 18:36 Follow up: IV Status: Completed infusion ap3 17:06 Drug: Dilaudid (HYDROmorphone) 1 mg Route: IVP; Site: left upper arm; ap3 18:35 Follow up: Response: No adverse reaction; Pain is decreased ap3 20:00 Drug: Dilaudid (HYDROmorphone) 2 mg Route: IVP; Infused Over: 2 mins; Site: PICC; Intake: 15:43 IV: 1000ml; Total: 1000ml. ap3 18:36 IV: 1000ml; Total: 2000ml. ap3 Outcome: 15:14 Decision to Hospitalize by Provider. ma2 22:26 Admitted to Tele accompanied by tech, via wheelchair, room 221, with chart, Report wg called to SILAS Carrasco 22:43 Patient left the ED. Signatures: Dispatcher [employer] Chela Browne dsScott Flores MD MD ma2 Nicole Zimmerman RN RN ap3 Clare Washington RN RN [id number] Dany Vargas3 Vj Bermudez RN wg Johnson, Sade, RN RN sj1
--- NOTE | 2021-01-02 15:15 | EDPHYS ---
Physician Documentation [facility] Name: Sade Galdamez Age: 60 yrs Sex: Female : 1960 Arrival Date: 01/02/2021 Time: 12:57 Bed 4 Private MD: ED Physician Scott Cortez HPI: 01/02 14:53 This 60 yrs old Black Female presents to ER via EMS with complaints of Chest Pain. ma2 14:53 The patient or guardian reports chest pain that is located primarily in the substernal ma2 area. Associated signs and symptoms: Pertinent negatives: cough, diaphoresis, headache, lower extremity pain. Severity of pain: At its worst the pain was moderate in the emergency department the pain is unchanged. 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 - Social history:: Smoking status: Patient denies any tobacco usage or history of. ROS: 14:53 Constitutional: Negative for fever, chills, and weight loss. ma2 14:53 All other systems are negative. Exam: 14:53 Constitutional: This is a well developed, well nourished patient who is awake, alert, ma2 and in no acute distress. Head/Face: Normocephalic, atraumatic. Eyes: Pupils equal round and reactive to light, extra-ocular motions intact. Lids and lashes normal. Conjunctiva and sclera are non-icteric and not injected. Cornea within normal limits. Periorbital areas with no swelling, redness, or edema. ENT: Nares patent. No nasal discharge, no septal abnormalities noted. Tympanic membranes are normal and external auditory canals are clear. Oropharynx with no redness, swelling, or masses, exudates, or evidence of obstruction, uvula midline. Mucous membranes moist. Neck: Trachea midline, no thyromegaly or masses palpated, and no cervical lymphadenopathy. Supple, full range of motion without nuchal rigidity, or vertebral point tenderness. No Meningismus. Chest/axilla: Normal chest wall appearance and motion. Nontender with no deformity. No lesions are appreciated. Cardiovascular: Regular rate and rhythm with a normal S1 and S2. No gallops, murmurs, or rubs. Normal PMI, no JVD. No pulse deficits. Respiratory: Lungs have equal breath sounds bilaterally, clear to auscultation and percussion. No rales, rhonchi or wheezes noted. No increased work of breathing, no retractions or nasal flaring. Abdomen/GI: Soft, non-tender, with normal bowel sounds. No distension or tympany. No guarding or rebound. No evidence of tenderness throughout. MS/ Extremity: Pulses equal, no cyanosis. Neurovascular intact. Full, normal range of motion. Neuro: Awake and alert, GCS 15, oriented to person, place, time, and situation. Cranial nerves II-XII grossly intact. Motor strength 5/5 in all extremities. Sensory grossly intact. Cerebellar exam normal. Normal gait. Vital Signs: 13:29 BP 149 / 88; Pulse 108; Resp 17; Temp 98.6(O); Pulse Ox 100% on R/A; ap3 14:30 BP 134 / 76; Pulse 91; Pulse Ox 99% on R/A; ap3 15:30 BP 116 / 75; Pulse 99; Pulse Ox 99% on R/A; ap3 16:30 BP 126 / 53; Pulse 89; Pulse Ox 100% on R/A; ap3 17:30 BP 124 / 74; Pulse 93; Pulse Ox 100% on R/A; ap3 18:30 BP 125 / 79; Pulse 92; Pulse Ox 100% on R/A; ap3 MDM: 12:59 Patient medically screened. ma2 14:53 Differential diagnosis: costochondritis, esophagitis, gastroesophageal reflux disease ma2 (GERD), myocarditis, pancreatitis, pneumonia, stable angina. 15:13 Data reviewed: vital signs, nurses notes, EMS record, [facility] records. Counseling: rachel I had a detailed discussion with the patient and/or guardian regarding: the historical points, exam findings, and any diagnostic results supporting the discharge/admit diagnosis, the presence of at least one elevated blood pressure reading (>120/80) during this emergency department visit, the need for further work-up and treatment in the hospital. 01/02 13:00 Order name: Basic Metabolic Panel dc2 01/02 13:00 Order name: CBC with Diff dc2 01/02 13:00 Order name: LFT's ma2 01/02 13:00 Order name: Magnesium dc2 01/02 13:00 Order name: NT PRO-BNP; Complete Time: 13:53 dc2 01/02 13:00 Order name: PT-INR; Complete Time: 13:53 dc2 01/02 13:00 Order name: Troponin (emerg Dept Use Only); Complete Time: 13:53 dc2 01/02 13:00 Order name: Lipase; Complete Time: 13:53 dc2 01/02 13:00 Order name: Blood Culture Adult (2) dc2 01/02 13:01 Order name: Basic Metabolic Panel; Complete Time: 13:53 EDMS 01/02 13:01 Order name: CBC with Automated Diff; Complete Time: 13:53 EDMS 01/02 13:01 Order name: Liver (Hepatic) Function; Complete Time: 13:53 EDMS 01/02 13:01 Order name: Magnesium; Complete Time: 13:53 EDMS 01/02 16:27 Order name: Basic Metabolic Panel EDMS 01/02 16:27 Order name: Basic Metabolic Panel EDMS 01/02 16:27 Order name: Basic Metabolic Panel EDMS 01/02 16:27 Order name: Basic Metabolic Panel EDMS 01/02 16:27 Order name: Lipid Profile EDMS 01/02 16:27 Order name: Lipid Profile EDMS 01/02 16:27 Order name: Magnesium EDMS 01/02 16:27 Order name: Magnesium EDMS 01/02 16:27 Order name: Troponin I EDMS 01/02 16:27 Order name: Troponin I EDMS 01/02 16:27 Order name: CBC with Automated Diff EDMS 01/02 16:27 Order name: CBC with Automated Diff EDMS 01/02 16:27 Order name: Troponin I EDMS 01/02 19:24 Order name: COVID-19 (Coronavirus) Document "Date of Onset" if Symptomatic tt3 01/02 19:35 Order name: Urine Dipstick-Ancillary EDMS 01/02 21:00 Order name: CORONAVIRUS EDMS 01/02 22:04 Order name: SARS-COV-2 RT PCR EDMS 01/02 13:00 Order name: XRAY Chest (1 view) [facility] 01/02 13:00 Order name: EKG; Complete Time: 13:01 dc2 01/02 13:00 Order name: Cardiac monitoring; Complete Time: 13:07 dc2 01/02 13:00 Order name: EKG - Nurse/Tech; Complete Time: 13:18 dc2 01/02 13:00 Order name: IV Saline Lock; Complete Time: 13:26 dc2 01/02 13:00 Order name: Labs collected and sent; Complete Time: 13:26 dc2 01/02 13:00 Order name: O2 Per Protocol; Complete Time: 13:07 dc2 01/02 13:00 Order name: O2 Sat Monitoring; Complete Time: 13: [facility] 01/02 13:00 Order name: Urine Dipstick-Ancillary (obtain specimen); Complete Time: 19:46 ma2 01/02 16:27 Order name: CONS Physician Consult; Complete Time: 19:46 EDMS 01/02 16:27 Order name: Heart Healthy; Complete Time: 19:46 EDMS 01/02 16:27 Order name: Echo with Doppler EDMS 01/02 16:27 Order name: EKG Electrocardiogram; Complete Time: 19:46 EDMS 01/02 16:27 Order name: EKG Electrocardiogram; Complete Time: 19:46 EDMS Administered Medications: 13:25 Drug: Phenergan (promethazine) 25 mg Route: IVP; Site: left upper arm; ap3 15:43 Follow up: Response: No adverse reaction; Nausea is decreased ap3 13:26 Drug: NS 0.9% 1000 ml Route: IV; Rate: 1 bolus; Site: left upper arm; ap3 15:43 Follow up: IV Status: Completed infusion; IV Intake: 1000ml ap3 13:57 Drug: Dilaudid (HYDROmorphone) 1 mg Route: IVP; Site: left upper arm; ap3 14:50 Follow up: Response: No adverse reaction; Pain is unchanged, physician notified ap3 14:21 Drug: Klor-Con (potassium) Effervescent Tablet 25 mEq Route: PO; ap3 14:49 Follow up: Response: No adverse reaction ap3 14:21 Drug: Magnesium Sulfate 2 grams Route: IVPB; Infused Over: 2 hrs; Site: left upper arm; ap3 15:42 Follow up: IV Status: Completed infusion ap3 14:21 Drug: NS 0.9% 1000 ml Route: IV; Rate: 1 bolus; Site: left upper arm; ap3 18:36 Follow up: IV Status: Completed infusion; IV Intake: 1000ml ap3 14:49 Drug: Dilaudid (HYDROmorphone) 1 mg Route: IVP; Site: left upper arm; ap3 15:43 Follow up: Response: No adverse reaction ap3 15:42 Drug: Potassium Chloride 20 mEq Route: IV; Rate: calculated rate; Site: left upper arm; ap3 18:36 Follow up: IV Status: Completed infusion ap3 17:06 Drug: Dilaudid (HYDROmorphone) 1 mg Route: IVP; Site: left upper arm; ap3 18:35 Follow up: Response: No adverse reaction; Pain is decreased ap3 20:00 Drug: Dilaudid (HYDROmorphone) 2 mg Route: IVP; Infused Over: 2 mins; Site: PICC; wg Disposition: 15:13 Critical Care:. ma2 Disposition Summary: 01/02/21 15:14 Hospitalization Ordered Hospitalization Status: Inpatient Admission ma2 Provider: Scott Coffey Condition: Stable ma2 Problem: new ma2 Symptoms: are unchanged ma2 Bed/Room Type: Standard dc2 Location: Telemetry/MedSurg (observation)(01/02/21 22:11) eb1 Room Assignment: [facility](01/02/21 22:11) eb1 Diagnosis - Hypokalemia ma2 - Chest pain, unspecified ma2 Forms: - Medication Reconciliation Form ma2 - SBAR form ma2 Critical care time excluding procedures: 15:13 Critical care time: Bedside Care: 30 minutes, Consultation: 10 minutes, Family ma2 Intervention: 5 minutes. Total time: 45 minutes Signatures: Dispatcher [employer] EDMS Scott Cortez MD MD ma2 Nicole Zimmerman RN RN diana3 Nevaeh Farley RN RN eb1 Clare Washington RN RN ll1 Vj Bermudez RN wg Corrections: (The following items were deleted from the chart) 15:53 15:14 Telemetry/MedSurg (Inpatient) ma2 ll1 15:53 15:14 ma2 ll1 15:55 15:53 ll1 ll1 22:09 15:55 ERHOLD- ll1 eb1 22:11 15:53 [facility] ER HOLD ll1 eb1 22:11 22:09 eb1 eb1
[2021-01-02] MEDS ORDERED: MORPHINE 4 MG/ML SYR IV PRN (16:22)
[2021-01-02] MEDS ORDERED: ACETAMINOPHEN 500 MG TAB PO PRN (16:22)
[2021-01-02] MEDS ORDERED: HYDROMORPHONE HCL 1 MG/ML INJ ONE (17:27)
[2021-01-02 19:35] LABS: Urine Blood 1+ (Negative); Urine Glucose Negative (Negative); Urine Protein 2+ (Negative); Urine Specific Gravity 1.015 (1.005-1.030); Urine pH 7.5 (5.0-7.0)
[2021-01-02] MEDS ORDERED: MORPHINE SULFATE 100 MG PO PRN (19:38)
[2021-01-02] MEDS ORDERED: HYDROMORPHONE ORAL 4 MG TAB PO PRN (19:38)
[2021-01-02] MEDS: ENOXAPARIN 40 MG/0.4 ML SQ SCH (20:00)
[2021-01-02] MEDS ORDERED: MORPHINE 4 MG/ML SYR ONE (20:11)
[2021-01-02] MEDS ORDERED: ENOXAPARIN 40 MG/0.4 ML SQ ONE (20:12)
[2021-01-02] MEDS: METOPROLOL TAR 25 MG TAB PO SCH (21:00)
[2021-01-02] MEDS: GABAPENTIN 400 MG CAP PO SCH (21:00)
[2021-01-02] MEDS: PROMETHAZINE 25 MG TABLET PO PRN (21:45)
[2021-01-02] MEDS ORDERED: PROMETHAZINE 25 MG TABLET ONE (22:03)
[2021-01-02] MEDS ORDERED: METOPROLOL TAR 25 MG TAB ONE (22:03)
[2021-01-02] MEDS ORDERED: GABAPENTIN 400 MG CAP ONE (22:06)
[2021-01-02 22:08] LABS: BUN Blood Urea Nitrogen 6 mg/dL (7-18); Bicarbonate 29 mmol/L (21-32); Glucose Level 88 mg/dL (74-106); Magnesium 2.1 mg/dL (1.8-2.4); Sodium Level 145 mmol/L (136-145); Troponin I 0.02 ng/mL (0.0-0.045)
[2021-01-02 22:09] LABS: Potassium 2.7 mmol/L (3.5-5.1)
[2021-01-02] MEDS: HYDROMORPHONE HCL 0.5 MG/0.5 ML INJ IV PRN (23:46)
[2021-01-03] MEDS: POTASSIUM CL SA 10 MEQ TAB PO SCH ×2 (00:03→09:38)
[2021-01-03 00:28] VITALS: BMI 41.5
[2021-01-03] MEDS ORDERED: FENTANYL CITR 100 MCG/2 ML IV ONE (01:48)
[2021-01-03] MEDS: HYDROMORPHONE HCL 0.5 MG/0.5 ML INJ IV PRN ×3 (04:43→14:15)
[2021-01-03 05:01] LABS: Absolute Lymphocytes (CBC) 0.7 K/uL (0.7-4.9); Basophils % 0.2 % (0-1.3); Hematocrit 24.5 % (36.0-45.0); Lymphocytes % 9.5 % (15.3-44.8); MPV 8.1 fL (7.6-11.3); RBC Red Blood Cell Count 3.16 M/uL (3.86-4.86)
[2021-01-03 05:20] LABS: BUN Blood Urea Nitrogen 5 mg/dL (7-18); Bicarbonate 29 mmol/L (21-32); Glucose Level 86 mg/dL (74-106); Sodium Level 144 mmol/L (136-145); Troponin I 0.03 ng/mL (0.0-0.045)
[2021-01-03 05:24] LABS: Potassium 2.6 mmol/L (3.5-5.1)
[2021-01-03] MEDS: KCL 20 MEQ/100 mL IVPB 20 MEQ/100 ML BAG IV SCH ×3 (06:03→10:00)
[2021-01-03] MEDS ORDERED: NA CHLORIDE 0.9% 500 ML ONE (06:17)
[2021-01-03] MEDS ORDERED: INFLUENZA VACCINE (for 6+ mo) 0.5 ML DOSE IMVAC ONE (08:00)
[2021-01-03 08:43] LABS: Anisocytosis SLIGHT; Blood Morphology Comment NOTED (NOT SEEN); Platelet Estimate DECR
[2021-01-03] MEDS: ENOXAPARIN 40 MG/0.4 ML SQ SCH (09:37)
[2021-01-03] MEDS: PROMETHAZINE 25 MG TABLET PO PRN ×4 (09:37→22:20)
[2021-01-03] MEDS: ASPIRIN EC 81 MG TAB PO SCH (09:38)
[2021-01-03] MEDS: METOPROLOL TAR 25 MG TAB PO SCH ×2 (09:39→21:03)
[2021-01-03] MEDS: GABAPENTIN 400 MG CAP PO SCH ×2 (09:39→21:03)
--- NOTE | 2021-01-03 12:34 | CON ---
Date of Consultation: 01/03/2021 Reason For Consultation: Chest pain. History Of Present Illness: Ms. Galdamez is 60. We have seen her before in November of this year. She had a normal echo and normal stress test. Has a history of breast cancer, on chemotherapy. She has a history of groin tumor. Dr. Beverly is following her in that regard. Has a history of hypertensi on. No previous heart disease. Came in with mid-epigastric chest pain radiating to the left lateral wall without any nausea, vomiting, diaphoresis, PND, orthopnea, pedal edema, palpitation, or syncope . EKG is normal. Chest x-ray is normal. Echocardiogram and Lexiscan are normal recently. She was found to be hypokalemic. Potassium is 2.6. Anemic. Past Medical History: As stated above. Allergies: NONE. Review of Systems: Negative. Social History: Negative. Family History: Negative. Medications: Listed by Dr. Coffey. Physical Examination: Vital Signs: Stable. Afebrile. She continues to have pain in that same region and more pain in the groin area. Vital signs were stable, afebrile. HEENT: Negative. Neck: Supple with no bruit. Chest: Clear. Cardiac: Normal. Abdomen: Obese. Extremities: Revealed trace edema. Diagnostic Data: As stated earlier. Impression And Plan: Atypical chest pain with very recent normal echo and normal stress test. She h as normal troponin, normal EKG, normal x-ray. Her potassium needs to be corrected. Her anemia needs to be addressed. She has cancer in her breast and her groin and followed by Dr. Beverly. Her blood pr essure is well controlled. I will sign off her case. No cardiac workup recommended. NB/MODL Voice ID: [id number] Report ID: [id number]
--- NOTE | 2021-01-03 14:47 | P.HP ---
Certification for Inpatient Patient admitted to: Observation With expected LOS: <2 Midnights Patient will require the following post-hospital care: None Practitioner: I am a practitioner with admitting privileges, knowledge of patient current condition, hospital course, and medical plan of care. Services: Services provided to patient in accordance with Admission requirements found in Title 42 Section 412.3 of the Code of Federal Regulations Patient History Date of Service: 01/02/21 Reason for admission: Abdominal pain/chest discomfort/severe hypokalemia History of Present Illness: Patient is a 60-year-old female came to the hospital with chest discomfort. Who came into the hospital with hypokalemia. Patient's potassium was 2.6. Patient has been having symptomatic chest pain related to her potassium levels being low. Her cardiac workup has always been unremarkable. She decided to come into the emergency room for evaluation. 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 Patient states the chemotherapy as weak in her. She has nobody at home to help care for her. The chest pain is mainly in the sternal region and radiates to her left side. She came into the hospital for further evaluation. Allergies iopamidol [From [id number]] Allergy (Verified 01/03/21 00:13) Shortness of breath Home Medications: Folic Acid 1 mg PO DAILY 12/07/20 Gabapentin [Neurontin] 800 mg PO BID 12/07/20 Hydromorphone [Dilaudid*] 4 mg PO Q4HP PRN 12/07/20 Morphine Sulfate [Morphine Sulfate ER] 100 mg PO Q12H 12/07/20 OLANZapine [Olanzapine] 2.5 mg PO BEDTIME PRN PRN 12/07/20 Promethazine Tab [Phenergan*] 25 mg PO Q4H PRN 12/23/20 Docusate [Colace Cap*] 100 mg PO DAILY #30 cap 12/30/20 Ensure Clear 237 ml PO BID #60 can 12/30/20 Potassium Chloride [K-Dur] 40 meq PO DAILY #60 tab.er.prt 12/30/20 levoFLOXacin [Levaquin*] 500 mg PO DAILY #5 tab 12/30/20 - Past Medical/Surgical History Has patient received pneumonia vaccine in the past: No Diabetic: No -: breast cancer -: liposarcoma -: HTN (resolved) -: mastectomy -: hysterectomy -: R hip replacement Psychosocial/ Personal History: Retired, lives at home by self - Family History Mother Medical History: Diabetes Father Medical History: Cancer Notes: lung cancer Brother Medical History: Hypertension, Diabetes Sister Medical History: Liver disease Notes: cirrhosis - Social History Smoking Status: Never smoker Alcohol use: No CD- Drugs: Yes Caffeine use: No Place of Residence: Home Review of Systems 10-point ROS is otherwise unremarkable Physical Examination - Vital Signs Temperature: 98.0 F Blood Pressure: 135/63 Pulse: 90 Respirations: 14 Pulse Ox (%): 97 - Physical Exam General: Alert, In no apparent distress, Oriented x3 HEENT: Atraumatic, PERRLA, Mucous membr. moist/pink, EOMI, Sclerae nonicteric Neck: Supple, 2+ carotid pulse no bruit, No LAD, Without JVD or thyroid abnormality Respiratory: Clear to auscultation bilaterally, Normal air movement Cardiovascular: Regular rate/rhythm, Normal S1 S2, No murmurs Gastrointestinal: Normal bowel sounds, Soft and benign, Non-distended, No tenderness Musculoskeletal: No clubbing, No swelling, No tenderness Integumentary: No rashes Neurological: Normal gait, Normal speech, Normal strength at 5/5 x4 extr, Normal tone, Normal affect Lymphatics: No axilla or inguinal lymphadenopathy Assessment & Plan - Problems (Diagnosis) (1) Chest pain, rule out acute myocardial infarction Current Visit: Yes Status: Acute (2) Hypokalemia Current Visit: Yes Status: Acute (3) Insufficient social support Current Visit: Yes Status: Acute (4) 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 Serial troponins and EKG 2. Appreciate Cardiology consultation 3. Echocardiogram and stress test if cardiology is agreeable 4. Anti-platelet therapy, anti coagulation, beta-davide, statin, and O2 as needed 5. Strict pain control 6. Potassium supplementation 7. Out of bed and ambulate 8. GI and DVT prophylaxis Discharge Plan: Home - Advance Directives Does patient have a Living Will: Yes Does patient have a Durable POA for Healthcare: Yes
--- NOTE | 2021-01-03 14:57 | P.PN ---
Subjective Date of Service: 01/03/21 Pt still with severe pain and severe hypokalemia; working on correcting Review of Systems 10-point ROS is otherwise unremarkable Physical Examination - Vital Signs Temperature: 98.0 F Blood Pressure: 135/63 Pulse: 90 Respirations: 14 Pulse Ox (%): 97 - Physical Exam General: Alert, In no apparent distress, Oriented x3 Respiratory: Clear to auscultation bilaterally, Normal air movement Cardiovascular: Regular rate/rhythm, Normal S1 S2, No murmurs Gastrointestinal: Normal bowel sounds, Soft and benign, Non-distended, No tenderness Musculoskeletal: No clubbing, No swelling, No tenderness Neurological: Sensation intact, Cranial nerves 3-12 intact - Studies Medications List Reviewed: Yes Assessment & Plan - Problems (Diagnosis) (1) Chest pain, rule out acute myocardial infarction Current Visit: Yes Status: Acute (2) Hypokalemia Current Visit: Yes Status: Acute (3) Insufficient social support Current Visit: Yes Status: Acute (4) Liposarcoma Current Visit: No Status: Chronic - Plan Continue with plan of care as mentioned below: 1. Serial troponins and EKG are unremarkable 2. Appreciate Cardiology consultation 3. Echocardiogram unremarkable 4. OOB and ambulate 5. Strict pain control 6. Potassium supplementation 7. GI and DVT prophylaxis Discharge Plan: Home Plan to discharge in: Greater than 2 days - Advance Directives Does patient have a Living Will: Yes Does patient have a Durable POA for Healthcare: Yes - Code Status/Comfort Care Code Status Assessed: Yes Code Status: Full Code Critical Care: No Time Spent Managing PTS Care (In Minutes): 35
[2021-01-03 17:19] LABS: BUN Blood Urea Nitrogen 4 mg/dL (7-18); Bicarbonate 30 mmol/L (21-32); Glucose Level 95 mg/dL (74-106); Potassium 3.1 mmol/L (3.5-5.1); Sodium Level 146 mmol/L (136-145)
[2021-01-03] MEDS ORDERED: POTASSIUM 25 MEQ EFFERV TAB PO ONE (17:27)
[2021-01-03] MEDS ORDERED: KCL 20 MEQ/100 mL IVPB 20 MEQ/100 ML BAG IV SCH (18:00)
[2021-01-03] MEDS: HYDROMORPHONE HCL 1 MG/ML INJ IV PRN ×2 (18:22→22:19)
[2021-01-03] MEDS: SPIRONOLACTONE 25 MG TABLET PO SCH (21:03)
[2021-01-04] MEDS: HYDROMORPHONE HCL 1 MG/ML INJ IV PRN ×6 (02:32→23:22)
[2021-01-04 05:39] LABS: Absolute Lymphocytes (CBC) 0.6 K/uL (0.7-4.9); Basophils % 0.4 % (0-1.3); Hematocrit 22.8 % (36.0-45.0); Lymphocytes % 8.3 % (15.3-44.8); MPV 7.2 fL (7.6-11.3); RBC Red Blood Cell Count 2.91 M/uL (3.86-4.86)
[2021-01-04 06:28] LABS: BUN Blood Urea Nitrogen 5 mg/dL (7-18); Bicarbonate 29 mmol/L (21-32); Folic Acid, (Folate) 7.2 ng/mL (3.1-17.5); Glucose Level 85 mg/dL (74-106); Magnesium 1.8 mg/dL (1.8-2.4); Phosphorus 1.5 mg/dL (2.5-4.9); Sodium Level 146 mmol/L (136-145)
[2021-01-04 06:30] LABS: Potassium 2.7 mmol/L (3.5-5.1)
[2021-01-04] MEDS: KCL 20 MEQ/100 mL IVPB 20 MEQ/100 ML BAG IV SCH ×3 (06:38→11:05)
[2021-01-04] MEDS ORDERED: KCL 20 MEQ/100 mL IVPB 20 MEQ/100 ML BAG IV ONE (06:59)
[2021-01-04] MEDS: POTASSIUM CL SA 10 MEQ TAB PO SCH (09:00)
[2021-01-04] MEDS: ENOXAPARIN 40 MG/0.4 ML SQ SCH (09:15)
[2021-01-04] MEDS: METOPROLOL TAR 25 MG TAB PO SCH ×2 (09:16→20:13)
[2021-01-04] MEDS: SPIRONOLACTONE 25 MG TABLET PO SCH ×2 (09:17→20:14)
[2021-01-04] MEDS: ASPIRIN EC 81 MG TAB PO SCH (09:17)
[2021-01-04] MEDS: GABAPENTIN 400 MG CAP PO SCH ×2 (09:18→20:14)
[2021-01-04] MEDS ORDERED: POTASSIUM 25 MEQ EFFERV TAB PO ONE (09:22)
[2021-01-04] MEDS: PROMETHAZINE 25 MG TABLET PO PRN ×2 (10:55→14:42)
[2021-01-04 12:03] VITALS: O2SAT 98
[2021-01-04] MEDS ORDERED: NA CHLORIDE 0.9% 50 ML ONE (16:30)
[2021-01-04 22:06] LABS: Absolute Lymphocytes (CBC) 0.7 K/uL (0.7-4.9); Basophils % 0.1 % (0-1.3); Hematocrit 25.8 % (36.0-45.0); Lymphocytes % 8.5 % (15.3-44.8); RBC Red Blood Cell Count 3.27 M/uL (3.86-4.86)
[2021-01-05] MEDS: HYDROMORPHONE HCL 1 MG/ML INJ IV PRN ×6 (03:17→22:56)
[2021-01-05 05:06] LABS: BUN Blood Urea Nitrogen 6 mg/dL (7-18); Bicarbonate 28 mmol/L (21-32); Glucose Level 88 mg/dL (74-106); Sodium Level 145 mmol/L (136-145)
[2021-01-05 05:07] LABS: Potassium 2.8 mmol/L (3.5-5.1)
[2021-01-05] MEDS: PROMETHAZINE 25 MG TABLET PO PRN (05:49)
[2021-01-05] MEDS: KCL 20 MEQ/100 mL IVPB 20 MEQ/100 ML BAG IV SCH ×3 (05:50→12:22)
[2021-01-05] MEDS: GABAPENTIN 400 MG CAP PO SCH ×2 (09:20→20:09)
[2021-01-05] MEDS: METOPROLOL TAR 25 MG TAB PO SCH ×2 (09:20→20:08)
[2021-01-05] MEDS: POTASSIUM CL SA 10 MEQ TAB PO SCH (09:21)
[2021-01-05] MEDS: ENOXAPARIN 40 MG/0.4 ML SQ SCH (09:21)
[2021-01-05] MEDS: ASPIRIN EC 81 MG TAB PO SCH (09:22)
[2021-01-05] MEDS: SPIRONOLACTONE 25 MG TABLET PO SCH ×2 (09:24→20:08)
[2021-01-05] MEDS ORDERED: POTASSIUM 25 MEQ EFFERV TAB PO ONE ×2 (11:35→23:30)
[2021-01-05] MEDS: POTASSIUM 25 MEQ EFFERV TAB PO SCH (14:00)
[2021-01-05 19:21] LABS: Absolute Lymphocytes (CBC) 0.8 K/uL (0.7-4.9); Basophils % 0.3 % (0-1.3); Hematocrit 26.8 % (36.0-45.0); Lymphocytes % 8.7 % (15.3-44.8); MPV 7.1 fL (7.6-11.3)
[2021-01-06] MEDS: HYDROMORPHONE HCL 1 MG/ML INJ IV PRN ×5 (02:54→18:13)
[2021-01-06 05:24] LABS: BUN Blood Urea Nitrogen 8 mg/dL (7-18); Bicarbonate 31 mmol/L (21-32); Glucose Level 89 mg/dL (74-106); Sodium Level 144 mmol/L (136-145)
[2021-01-06] MEDS: PROMETHAZINE 25 MG TABLET PO PRN ×2 (06:27→14:32)
[2021-01-06] MEDS: POTASSIUM CL SA 10 MEQ TAB PO SCH (08:34)
[2021-01-06] MEDS: KCL 20 MEQ/100 mL IVPB 20 MEQ/100 ML BAG IV SCH ×2 (08:34→11:41)
[2021-01-06] MEDS: POTASSIUM 25 MEQ EFFERV TAB PO SCH (08:34)
[2021-01-06] MEDS: GABAPENTIN 400 MG CAP PO SCH (08:34)
[2021-01-06] MEDS: METOPROLOL TAR 25 MG TAB PO SCH (08:35)
[2021-01-06] MEDS: SPIRONOLACTONE 25 MG TABLET PO SCH (08:35)
[2021-01-06] MEDS: ASPIRIN EC 81 MG TAB PO SCH (08:35)
[2021-01-06] MEDS: ENOXAPARIN 40 MG/0.4 ML SQ SCH (08:35)
[2021-01-06] MEDS ORDERED: POTASSIUM 25 MEQ EFFERV TAB PO SCH (09:00)
[2021-01-06] MEDS ORDERED: POTASSIUM 25 MEQ EFFERV TAB PO ONE (11:00)
--- NOTE | 2021-01-08 02:54 | P.PN ---
Date of Service: 01/04/21 Subjective Patient anemic and hypokalemic. Continue with supplementing & transfuse 1 unit of packed red blood cells Review of Systems 10-point ROS is otherwise unremarkable Physical Examination - Vital Signs Reviewed - Physical Exam General: Alert, In no apparent distress, Oriented x3 Respiratory: Clear to auscultation bilaterally, Normal air movement Cardiovascular: Regular rate/rhythm, Normal S1 S2, No murmurs Gastrointestinal: Normal bowel sounds, Soft and benign, Non-distended, No tenderness Musculoskeletal: No clubbing, No swelling, No tenderness Neurological: Sensation intact, Cranial nerves 3-12 intact - Studies Medications List Reviewed: Yes Assessment & Plan - Problems (Diagnosis) (1) Chest pain, rule out acute myocardial infarction Current Visit: Yes Status: Acute (2) Hypokalemia Current Visit: Yes Status: Acute (3) Insufficient social support Current Visit: Yes Status: Acute (4) Liposarcoma Current Visit: No Status: Chronic - Plan Continue with plan of care as mentioned below: 1. Cardiac workup is negative 2. Appreciate Cardiology consultation 3. Echocardiogram unremarkable 4. OOB and ambulate 5. Strict pain control 6. Potassium supplementation 7. Transfuse an additional unit of packed red blood cells 8. GI and DVT prophylaxis Discharge Plan: Home Plan to discharge in: Greater than 2 days - Advance Directives Does patient have a Living Will: Yes Does patient have a Durable POA for Healthcare: Yes - Code Status/Comfort Care Code Status Assessed: Yes Code Status: Full Code Critical Care: No Time Spent Managing PTS Care (In Minutes): 35
[2021-01-08 02:56] VITALS: BP 135/63; TEMP 98
--- NOTE | 2021-01-08 02:56 | P.PN ---
Date of Service: 01/05/21 Subjective Patient remains hypokalemic. Increasing amount of potassium that we are giving. Added Aldactone. Review of Systems 10-point ROS is otherwise unremarkable Physical Examination - Vital Signs Reviewed - Physical Exam General: Alert, In no apparent distress, Oriented x3 Respiratory: Clear to auscultation bilaterally, Normal air movement Cardiovascular: Regular rate/rhythm, Normal S1 S2, No murmurs Gastrointestinal: Normal bowel sounds, Soft and benign, Non-distended, No tenderness Musculoskeletal: No clubbing, No swelling, No tenderness Neurological: Sensation intact, Cranial nerves 3-12 intact - Studies Medications List Reviewed: Yes Assessment & Plan - Problems (Diagnosis) (1) Chest pain, rule out acute myocardial infarction Current Visit: Yes Status: Acute (2) Hypokalemia Current Visit: Yes Status: Acute (3) Insufficient social support Current Visit: Yes Status: Acute (4) Liposarcoma Current Visit: No Status: Chronic - Plan Continue with plan of care as mentioned below: 1. Continue with potassium supplementation 2. Outpatient home health to monitor labs closely 3. Echocardiogram unremarkable 4. OOB and ambulate 5. Strict pain control 6. Monitor H&H 7. GI and DVT prophylaxis Discharge Plan: Home Plan to discharge in: Greater than 2 days - Advance Directives Does patient have a Living Will: Yes Does patient have a Durable POA for Healthcare: Yes - Code Status/Comfort Care Code Status Assessed: Yes Code Status: Full Code Critical Care: No Time Spent Managing PTS Care (In Minutes): 35
--- NOTE | 2021-01-08 02:59 | P.DS ---
Discharge Date: 01/06/21 Disposition: [facility] HOME/HOME HEALTH CARE Discharge Condition: GOOD Reason for Admission: Abdominal pain/chest discomfort/severe hypokalemia - Problems (1) Chest pain, rule out acute myocardial infarction Status: Acute (2) Hypokalemia Status: Acute (3) Insufficient social support Status: Acute (4) Liposarcoma Status: Chronic Brief History of Present Illness: Patient is a 60-year-old female came to the hospital with chest discomfort. Who came into the hospital with hypokalemia. Patient's potassium was 2.6. Patient has been having symptomatic chest pain related to her potassium levels being low. Her cardiac workup has always been unremarkable. She decided to come into the emergency room for evaluation. Patient has been getting treatment for her sarcoma at [facility]. Patient states the chemotherapy as weak in her. She has nobody at home to help care for her. The chest pain is mainly in the sternal region and radiates to her left side. She came into the hospital for further evaluation. Hospital Course: Patient was supplement with potassium. Patient's anemia was corrected. Patient's potassium is doing much better. Patient is going to follow with home health and home health advised to keep his potassium level. At this time, patient is stable for discharge. Vital Signs/Physical Exam: Temp Pulse Resp BP Pulse Ox 98.0 F 90 14 135/63 97 01/08/21 02:56 01/08/21 02:56 01/08/21 02:56 01/08/21 02:56 01/08/21 02:56 General: Alert, In no apparent distress, Oriented x3 Laboratory Data at Discharge: WBC 9.10 K/uL (4.3-10.9) 01/05/21 16:57 Hgb 8.8 g/dL (12.0-15.0) L 01/05/21 16:57 Hct 26.8 % (36.0-45.0) L 01/05/21 16:57 Plt Count 156 K/uL (152-406) D 01/05/21 16:57 PT 16.5 SECONDS (9.5-12.5) H 01/02/21 13:15 INR 1.43 01/02/21 13:15 Sodium 144 mmol/L (136-145) 01/06/21 04:45 Potassium 3.2 mmol/L (3.5-5.1) L 01/06/21 14:38 BUN 8 mg/dL (7-18) 01/06/21 04:45 Creatinine 0.72 mg/dL (0.55-1.3) 01/06/21 04:45 Glucose 89 mg/dL (74-106) 01/06/21 04:45 Phosphorus 1.5 mg/dL (2.5-4.9) L 01/04/21 04:00 Magnesium 1.8 mg/dL (1.8-2.4) 01/04/21 04:00 Total Bilirubin 0.5 mg/dL (0.2-1.0) 01/02/21 13:15 AST 8 U/L (15-37) L 01/02/21 13:15 ALT 11 U/L (12-78) L 01/02/21 13:15 Alkaline Phosphatase 121 U/L (45-117) H 01/02/21 13:15 Troponin I 0.03 ng/mL (0.0-0.045) 01/03/21 04:41 Triglycerides 146 mg/dL (<150) 01/03/21 04:41 Cholesterol 132 mg/dL (<200) 01/03/21 04:41 HDL Cholesterol 49 mg/dL (40-60) 01/03/21 04:41 Cholesterol/HDL Ratio 2.69 01/03/21 04:41 Lipase 33 U/L (73-393) L 01/02/21 13:15 Home Medications: Folic Acid 1 mg PO DAILY 12/07/20 Gabapentin [Neurontin] 800 mg PO BID 12/07/20 Hydromorphone [Dilaudid*] 4 mg PO Q4HP PRN 12/07/20 Morphine Sulfate [Morphine Sulfate ER] 100 mg PO Q12H 12/07/20 OLANZapine [Olanzapine] 2.5 mg PO BEDTIME PRN PRN 12/07/20 Promethazine Tab [Phenergan*] 25 mg PO Q4H PRN 12/23/20 Docusate [Colace Cap*] 100 mg PO DAILY #30 cap 12/30/20 Ensure Clear 237 ml PO BID #60 can 12/30/20 Potassium Chloride [K-Dur] 40 meq PO DAILY #60 tab.er.prt 12/30/20 levoFLOXacin [Levaquin*] 500 mg PO DAILY #5 tab 12/30/20 Metoprolol Tartrate [Lopressor*] 25 mg PO BID #60 tab 01/06/21 Spironolactone [Aldactone*] 25 mg PO BID #60 tab 01/06/21 New Medications: Spironolactone [Aldactone*] 25 mg PO BID #60 tab Metoprolol Tartrate [Lopressor*] 25 mg PO BID #60 tab Physician Discharge Instructions: OK TO DC IV AND DC HOME FOLLOW-UP WITH PRIMARY CARE PROVIDER IN 1-2 WEEKS FOLLOW-UP WITH Oncologist & Day Care Attendant IN 1-2 WEEKS RETURN TO THE ER IF symptoms worsen CALL or TEXT DR. GRIFFITHS AT [phone] IF ANY QUESTIONS REGARDING HOSPITAL STAY. PLEASE CALL THE FLOOR AT [phone] IF ANY MEDICATION OR NURSING QUESTIONS. Diet: AHA Activity: Fall precautions Followup: Antony Roca MD [ACTIVE - CAN ADMIT] - OOT,OOT [Primary Care Provider] - Rafaela James MD [ACTIVE - CAN ADMIT] - Time spent managing pt's care (in minutes): 35
== END 2021-01-06 19:00 | disposition home health service (06) | DRG 641 ==
LOC: ER 12:56 → ERHOLD 16:23 → 2ND 22:24 → OBSVTOIN 01-03 21:31
PROVIDERS: ADMIT Hospitalist; ATTEND Hospitalist
PROC: 30233N1 Transfusion of Nonautologous Red Blood Cells into Peripheral Vein, Percutaneous Approach (ICD-10-PCS; principal; 2021-01-04)
DX: E87.6 Hypokalemia (principal); C49.9 Malignant neoplasm of connective and soft tissue, unspecified; R07.9 Chest pain, unspecified; Z63.9 Problem related to primary support group, unspecified; I10 Essential (primary) hypertension; Z85.3 Personal history of malignant neoplasm of breast; Z96.641 Presence of right artificial hip joint; D64.9 Anemia, unspecified; Z20.822 Contact with and (suspected) exposure to COVID-19
CPT/HCPCS: 36415; 71045; 80048; 80061; 80076; 81003; 82088; 82607; 82746; 83690; 83735; 83880; 84100; 84132; 84244; 84484; 85025; 85610; 86850; 86900; 86901; 87040; 93005; 96374; 96375; 99285; G0378; J1170; J1642; J1650; J2550; J2997; J3010; J3475; J3480; J7030; J7040; J7050; P9016; Q0169; U0003

== ENCOUNTER 2021-01-08 09:05 | Inpatient (IN) | payer MEDICARE, OTHER ==
[2021-01-08 09:38] LABS: Absolute Lymphocytes (CBC) 0.7 K/uL (0.7-4.9); Basophils % 0.5 % (0-1.3); Hematocrit 27.4 % (36.0-45.0); Lymphocytes % 6.6 % (15.3-44.8); MPV 6.9 fL (7.6-11.3); RBC Red Blood Cell Count 3.52 M/uL (3.86-4.86)
[2021-01-08 09:46] LABS: Protime INR 1.24
[2021-01-08] MEDS ORDERED: MORPHINE 2 MG/ML SYR ONE (09:48)
[2021-01-08] MEDS ORDERED: ONDANSETRON 4 MG/2 ML VIAL ONE ×2 (09:48→13:51)
[2021-01-08 10:51] LABS: Anisocytosis 1+; Blood Morphology Comment NOTED (NOT SEEN); Platelet Estimate ADEQ; White Blood Cell Scan OK (OK)
--- NOTE | 2021-01-08 10:55 | RAD REPORT ---
EXAM DESCRIPTION: RAD - Chest Single View - 01/08/2021 9:55 am CLINICAL HISTORY: CHEST PAIN Chest pain. COMPARISON: Chest Single View dated 01/02/2021; Chest Single View dated 01/01/2021; Chest Single Vie w dated 12/26/2020; Chest Single View dated 12/23/2020 FINDINGS: Portable technique limits examination quality. Asymmetric pulmonary opacities are present, greater on the left, suspicious for viral infection/ unde rlying bronchitis. The heart is upper limit of normal in size. Left-sided PICC line has tip in the SV C.
[2021-01-08] MEDS ORDERED: HYDROMORPHONE HCL 1 MG/ML INJ ONE ×2 (11:31→13:40)
[2021-01-08 11:48] LABS: ALT/SGPT 8 U/L (12-78); AST/SGOT 6 U/L (15-37); Albumin 2.9 g/dL (3.4-5.0); Alkaline Phosphatase 94 U/L (45-117); Bicarbonate 27 mmol/L (21-32); Bilirubin Direct 0.1 mg/dL (0-0.2); Glucose Level 82 mg/dL (74-106); Magnesium 1.7 mg/dL (1.8-2.4); Protein, Total 7.1 g/dL (6.4-8.2); Sodium Level 145 mmol/L (136-145)
[2021-01-08 12:19] LABS: BUN Blood Urea Nitrogen 6 mg/dL (7-18); Bilirubin Total 0.4 mg/dL (0.2-1.0); NT PRO-BNP 472 pg/mL (<125); Troponin (Emerg Dept Use Only) 0.02 ng/mL (0.0-0.045)
[2021-01-08 12:24] LABS: Potassium 2.7 mmol/L (3.5-5.1)
--- NOTE | 2021-01-08 12:48 | EDPHYS ---
Physician Documentation [facility] Name: Sade Galdamez Age: 60 yrs Sex: Female : 1960 Arrival Date: 01/08/2021 Time: 09:10 Bed 15 Private MD: ED Physician Najma Garcia HPI: 01/08 09:22 This 60 yrs old Black Female presents to ER via EMS with complaints of Chest Pain > 30 jr8 y/o. 09:22 The patient or guardian reports chest pain that is located primarily in the substernal jr8 area. Onset: acutely, today. The pain does not radiate. Associated signs and symptoms: The patient has no apparent associated signs or symptoms. The chest pain is described as sharp. Duration: The patient or guardian reports a single episode, that is still ongoing. Modifying factors: The symptoms are alleviated by nothing. the symptoms are aggravated by movement. Severity of pain: At its worst the pain was moderate in the emergency department the pain is unchanged. The patient has experienced a previous episode. The patient has been recently seen by a physician:. This is a 60-year-old female patient that came in with onset of chest pain that started at approximately 4:00 this morning. Patient stated that she was recently discharged for low potassium and chest pain. Feels like the episode that she started this morning was similar to that which she had last week. 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 Stated that that is the reason why her potassium keeps dropping.. Historical: - Allergies: 09:10 Iodine; ss - Home Meds: 09:20 Phenergan Oral [Active]; Hydromorphone Oral [Active]; Eliquis Oral [Active]; tw2 - PMHx: 09:10 breast cancer; chemotherapy; Hypertension; Tumor to groin area; ss - PSHx: 09:10 ovi mastectomy; hysterectomy; ss - Immunization history:: Adult Immunizations. - Social history:: Smoking status: . ROS: 09:22 Eyes: Negative for injury, pain, redness, and discharge, ENT: Negative for injury, jr8 pain, and discharge, Neck: Negative for injury, pain, and swelling, Respiratory: Negative for shortness of breath, cough, wheezing, and pleuritic chest pain, Abdomen/GI: Negative for abdominal pain, nausea, vomiting, diarrhea, and constipation, Back: Negative for injury and pain, MS/Extremity: Negative for injury and deformity, Skin: Negative for injury, rash, and discoloration, Neuro: Negative for headache, weakness, numbness, tingling, and seizure. 09:22 Cardiovascular: Positive for chest pain, Negative for edema, orthopnea, palpitations, paroxysmal nocturnal dyspnea. Exam: 09:22 Neck: Trachea midline, no thyromegaly or masses palpated, and no cervical jr8 lymphadenopathy. Supple, full range of motion without nuchal rigidity, or vertebral point tenderness. No Meningismus. Chest/axilla: Normal chest wall appearance and motion. Nontender with no deformity. No lesions are appreciated. Cardiovascular: Regular rate and rhythm with a normal S1 and S2. No gallops, murmurs, or rubs. Normal PMI, no JVD. No pulse deficits. Respiratory: Lungs have equal breath sounds bilaterally, clear to auscultation and percussion. No rales, rhonchi or wheezes noted. No increased work of breathing, no retractions or nasal flaring. Abdomen/GI: Soft, non-tender, with normal bowel sounds. No distension or tympany. No guarding or rebound. No evidence of tenderness throughout. Back: No spinal tenderness. No costovertebral tenderness. Full range of motion. Skin: Warm, dry with normal turgor. Normal color with no rashes, no lesions, and no evidence of cellulitis. MS/ Extremity: Pulses equal, no cyanosis. Neurovascular intact. Full, normal range of motion. Neuro: Awake and alert, GCS 15, oriented to person, place, time, and situation. Cranial nerves II-XII grossly intact. Motor strength 5/5 in all extremities. Sensory grossly intact. 09:22 Constitutional: The patient appears alert, awake, uncomfortable. Vital Signs: 09:10 Pulse 88; Resp 20; Temp 98.2(O); Pulse Ox 95% on R/A; Weight 111.13 kg (R); tw2 09:19 BP 140 / 84; tw2 10:02 BP 131 / 72; Pulse 87; Resp 18; Pulse Ox 96% on R/A; tw2 11:36 BP 133 / 68; Pulse 87; Resp 17; Pulse Ox 97% on R/A; tw2 12:35 BP 124 / 73; Pulse 89; Resp 17; Pulse Ox 96% on R/A; tw2 12:55 Pain 9/10; tw2 13:30 BP 133 / 77; Pulse 91; Resp 17; Pulse Ox 98% on R/A; tw2 14:30 BP 126 / 83; Pulse 89; Resp 17; Pulse Ox 99% on R/A; tw2 15:17 BP 131 / 77; Pulse 86; Resp 17; Pulse Ox 100% on R/A; tw2 16:47 BP 120 / 70; Pulse 91; Resp 17; Pulse Ox 100% on R/A; tw2 17:34 BP 96 / 75; Pulse 95; Resp 18; tw2 MDM: 09:12 Patient medically screened. jr8 12:44 Data reviewed: vital signs, nurses notes, lab test result(s), EKG, radiologic studies, jr8 plain films. Data interpreted: Pulse oximetry: on room air is 96 %. Interpretation: normal. Counseling: I had a detailed discussion with the patient and/or guardian regarding: the historical points, exam findings, and any diagnostic results supporting the discharge/admit diagnosis, lab results, radiology results, the need for further work-up and treatment in the hospital. 01/08 09:18 Order name: Basic Metabolic Panel; Complete Time: 12:40 01/08 09:18 Order name: CBC with Diff; Complete Time: 11:08 01/08 09:18 Order name: LFT's; Complete Time: 12:40 01/08 09:18 Order name: Magnesium; Complete Time: 12:40 01/08 09:18 Order name: NT PRO-BNP; Complete Time: 12:40 01/08 09:18 Order name: PT-INR; Complete Time: 10:17 01/08 09:18 Order name: Troponin (emerg Dept Use Only); Complete Time: 12:40 01/08 09:18 Order name: XRAY Chest (1 view); Complete Time: 11:08 01/08 10:50 Order name: CBC Smear Scan; Complete Time: 11:08 EDMS 01/08 13:37 Order name: Urine Dipstick-Ancillary; Complete Time: 13:39 EDMS 01/08 14:16 Order name: COVID-19/FLU A+B/RSV (Document "Date of Onset" if Symptomatic); Complete Time: 16:01/08 09:18 Order name: EKG; Complete Time: 01/08 09:18 Order name: Cardiac monitoring; Complete Time: 01/08 09:18 Order name: EKG - Nurse/Tech; Complete Time: 01/08 09:18 Order name: Labs collected and sent; Complete Time: 01/08 09:18 Order name: O2 Per Protocol; Complete Time: 01/08 09:18 Order name: O2 Sat Monitoring; Complete Time: Administered Medications: 09:23 Drug: Zofran (Ondansetron) 4 mg Route: IVP; Site: left upper arm; tw2 11:10 Follow up: Response: No adverse reaction 2 09:25 Drug: morphine 4 mg Route: IVP; Site: left upper arm; tw2 11:10 Follow up: Response: No adverse reaction; Pain is unchanged, physician notified tw2 11:07 Drug: Dilaudid (HYDROmorphone) 1 mg Route: IVP; Site: PICC; tw2 12:55 Follow up: Pain 9/ Adult; Response: No adverse reaction; Pain is unchanged, physician tw2 notified; RASS: Alert and Calm (0); "it helps a bit but its back and once i move to go to the restroom its going to be a 10 again", provider notified. 12:55 Drug: Potassium Chloride 20 mEq Route: IV; Rate: calculated rate; Site: PICC; tw2 14:50 Follow up: Response: No adverse reaction; IV Status: Completed infusion; IV Intake: tw2 100ml 12:55 Drug: Magnesium Sulfate 2 grams Route: IVPB; Infused Over: 2 hrs; Site: PICC; tw2 14:56 Follow up: Response: No adverse reaction; IV Status: Completed infusion; IV Intake: [id number] 13:16 Drug: Dilaudid (HYDROmorphone) 1 mg {Note: RASS 0.} Route: IVP; Site: PICC; tw2 15:17 Follow up: Response: No adverse reaction; Pain is decreased; RASS: Alert and Calm (0) tw2 13:25 Drug: Zofran (Ondansetron) 4 mg Route: IVP; Site: PICC; tw2 15:18 Follow up: Response: No adverse reaction; Nausea is decreased tw2 16:22 Drug: Dilaudid (HYDROmorphone) 2 mg {Note: RASS 0.} Route: IVP; Site: right antecubital;tw2 17:36 Follow up: Response: No adverse reaction; Pain is unchanged, physician notified; RASS: tw2 Alert and Calm (0) Disposition: 01/09 08:56 Co-signature as Attending Physician, Najma Garcia MD I agree with the assessment and sp3 plan of care. Disposition Summary: 01/08/21 12:47 Hospitalization Ordered Hospitalization Status: Observation rust Provider: Alejandro Mayo rust Location: Telemetry/MedSurg (observation) rust Condition: Stable jr8 Problem: new jr8 Symptoms: have improved jr8 Bed/Room Type: Standard rust Room Assignment: 221(01/08/21 17:20) Diagnosis - Chest pain, unspecified jr8 - Hypokalemia jr8 - Hypomagnesemia rust Forms: - Medication Reconciliation Form jr8 - SBAR form jr8 Signatures: Dispatcher [employer] Ethel Villarreal RN Gisela Mcdowell RN Parker Pruett PA PA rust Gaye Camejo RN RN tw2 Najma Garcia MD MD sp3 Corrections: (The following items were deleted from the chart) 01/08 09:19 09:18 IV Saline Lock ordered. rust 17:20 12:47 jr8 dw
--- NOTE | 2021-01-08 12:48 | ER ---
Nurse's Notes [facility] Name: Sade Galdamez Age: 60 yrs Sex: Female : 1960 Arrival Date: 01/08/2021 Time: 09:10 Bed 15 Private MD: Diagnosis: Chest pain, unspecified;Hypokalemia;Hypomagnesemia Presentation: 01/08 09:10 Chief complaint: Patient states: i was trying to sleep and the pain started about 4 am tw2 in my chest. EMS states: pt having chest pain this morning. was here 2 days ago \\T\\ her Potassium was low. Hx of Breast CA, also tumor in LEFT groin causing LEFT leg swelling and pain. she states her pain is in the center of her chest into the top of her stomach., vs stable. Pt has PICC with double lumen to LEFT upper arm. Coronavirus screen: At this time, the client does not indicate any symptoms associated with coronavirus-19. Ebola Screen: Patient denies travel to an Ebola-affected area in the 21 days before illness onset. Initial Sepsis Screen: Does the patient meet any 2 criteria? No. Patient's initial sepsis screen is negative. Does the patient have a suspected source of infection? No. Patient's initial sepsis screen is negative. Risk Assessment: Do you want to hurt yourself or someone else? Patient reports no desire to harm self or others. Note provider at bedside at this time. Onset of symptoms was January 08, 2021. 09:10 Method Of Arrival: EMS: [facility] tw2 09:10 Acuity: ABDIRIZAK 3 tw2 Triage Assessment: 09:15 General: Appears in no apparent distress. uncomfortable, obese, Behavior is calm, tw2 cooperative, appropriate for age. Pain: Complains of pain in xiphoid area and mid-sternal area. Neuro: Level of Consciousness is awake, alert, obeys commands, Oriented to person, place, time. Cardiovascular: Reports chest pain. Respiratory: Airway is patent Respiratory effort is even, unlabored, Respiratory pattern is regular, symmetrical. GI: No signs and/or symptoms were reported involving the gastrointestinal system. Derm: Left is grossly swollen compared to right leg. Musculoskeletal: Range of motion: intact in all extremities. Historical: - Allergies: 09:10 Iodine; ss - Home Meds: 09:20 Phenergan Oral [Active]; Hydromorphone Oral [Active]; Eliquis Oral [Active]; tw2 - PMHx: 09:10 breast cancer; chemotherapy; Hypertension; Tumor to groin area; ss - PSHx: 09:10 ovi mastectomy; hysterectomy; ss - Immunization history:: Adult Immunizations. - Social history:: Smoking status: . Screenin:20 Abuse screen: Denies threats or abuse. Nutritional screening: No deficits noted. tw2 Tuberculosis screening: No symptoms or risk factors identified. Fall Risk None identified. Assessment: 09:18 Reassessment: see triage assessment. tw2 10:19 Pain: Pain began. tw2 10:20 Pain: Pain does not radiate. tw2 11:36 Reassessment: Patient appears in no apparent distress at this time. No changes from tw2 previously documented assessment. Patient and/or family updated on plan of care and expected duration. Pain level reassessed. Patient is alert, oriented x 3, equal unlabored respirations, skin warm/dry/pink. 12:36 Reassessment: Patient appears in no apparent distress at this time. No changes from tw2 previously documented assessment. Patient and/or family updated on plan of care and expected duration. Pain level reassessed. Patient is alert, oriented x 3, equal unlabored respirations, skin warm/dry/pink. 13:23 Reassessment: pt c/o nausea, provider notified. tw2 15:17 Reassessment: Patient appears in no apparent distress at this time. Patient and/or [facility] [place] family updated on plan of care and expected duration. Pain level reassessed. Patient is alert, oriented x 3, equal unlabored respirations, skin warm/dry/pink. Patient states feeling better. 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 16:47 Reassessment: Patient appears in no apparent distress at this time. Patient and/or [facility] [place] family updated on plan of care and expected duration. Pain level reassessed. Patient is alert, oriented x 3, equal unlabored respirations, skin warm/dry/pink. Patient states feeling better. Vital Signs: 09:10 Pulse 88; Resp 20; Temp 98.2(O); Pulse Ox 95% on R/A; Weight 111.13 kg (R); tw2 09:19 BP 140 / 84; tw2 10:02 BP 131 / 72; Pulse 87; Resp 18; Pulse Ox 96% on R/A; tw2 11:36 BP 133 / 68; Pulse 87; Resp 17; Pulse Ox 97% on R/A; tw2 12:35 BP 124 / 73; Pulse 89; Resp 17; Pulse Ox 96% on R/A; tw2 12:55 Pain 9/10; tw2 13:30 BP 133 / 77; Pulse 91; Resp 17; Pulse Ox 98% on R/A; tw2 14:30 BP 126 / 83; Pulse 89; Resp 17; Pulse Ox 99% on R/A; tw2 15:17 BP 131 / 77; Pulse 86; Resp 17; Pulse Ox 100% on R/A; tw2 16:47 BP 120 / 70; Pulse 91; Resp 17; Pulse Ox 100% on R/A; tw2 17:34 BP 96 / 75; Pulse 95; Resp 18; tw2 ED Course: 09:10 Patient arrived in ED. tw2 09:10 Placed in gown. Bed in low position. Call light in reach. Side rails up X 1. Cardiac tw2 monitor on. Pulse ox on. NIBP on. Warm blanket given. 09:10 Maintain EMS IV. pt has PICC line to LEFT upper arm, pt states "its available for blood tw2 work", provider notified and aware.. 09:12 Parker Soto PA is PHCP. jr8 09:12 Najma Garcia MD is Attending Physician. jr8 09:15 Triage completed. tw2 09:15 Arm band placed on. EKG completed in triage. Results shown to . tw2 09:17 EKG done, by ED staff, reviewed by Parker SEVILLA. mt 09:19 Patient maintains SpO2 saturation greater than 95% on room air. tw2 09:56 XRAY Chest (1 view) In Process Unspecified. EDMS 10:02 Gaye Camejo, SILAS is Primary Nurse. tw2 12:46 Alejandro Mayo DO is Hospitalizing Provider. jr8 17:25 No provider procedures requiring assistance completed. pt PICC remains in tact. tw2 Administered Medications: 09:23 Drug: Zofran (Ondansetron) 4 mg Route: IVP; Site: left upper arm; tw2 11:10 Follow up: Response: No adverse reaction tw2 09:25 Drug: morphine 4 mg Route: IVP; Site: left upper arm; tw2 11:10 Follow up: Response: No adverse reaction; Pain is unchanged, physician notified tw2 11:07 Drug: Dilaudid (HYDROmorphone) 1 mg Route: IVP; Site: PICC; tw2 12:55 Follow up: Pain 9/ Adult; Response: No adverse reaction; Pain is unchanged, physician tw2 notified; RASS: Alert and Calm (0); "it helps a bit but its back and once i move to go to the restroom its going to be a 10 again", provider notified. 12:55 Drug: Potassium Chloride 20 mEq Route: IV; Rate: calculated rate; Site: PICC; tw2 14:50 Follow up: Response: No adverse reaction; IV Status: Completed infusion; IV Intake: tw2 100ml 12:55 Drug: Magnesium Sulfate 2 grams Route: IVPB; Infused Over: 2 hrs; Site: PICC; tw2 14:56 Follow up: Response: No adverse reaction; IV Status: Completed infusion; IV Intake: 14ynoc2 13:16 Drug: Dilaudid (HYDROmorphone) 1 mg {Note: RASS 0.} Route: IVP; Site: PICC; tw2 15:17 Follow up: Response: No adverse reaction; Pain is decreased; RASS: Alert and Calm (0) tw2 13:25 Drug: Zofran (Ondansetron) 4 mg Route: IVP; Site: PICC; tw2 15:18 Follow up: Response: No adverse reaction; Nausea is decreased tw2 16:22 Drug: Dilaudid (HYDROmorphone) 2 mg {Note: RASS 0.} Route: IVP; Site: right antecubital;tw2 17:36 Follow up: Response: No adverse reaction; Pain is unchanged, physician notified; RASS: tw2 Alert and Calm (0) Intake: 14:50 IV: 100ml; Total: 100ml. tw2 14:56 IV: 50ml; Total: 150ml. tw2 Outcome: 12:47 Decision to Hospitalize by Provider. jr8 17:27 Admitted to Med/surg accompanied by tech, via stretcher, room 221, with chart, Report tw2 called to SILAS Ashley 17:27 Condition: stable 17:38 Patient left the ED. tw2 Signatures: Dispatcher [employer] EDGisela Hays, RN RN Parker Jamison PA PA jr8 Gaye Camejo RN RN tw2 Naty Yusuf w[place]
[2021-01-08] MEDS ORDERED: Magnesium Sulfate 2gm IVPB 2 G/50 ML BAG IV ONE (13:12)
[2021-01-08] MEDS ORDERED: KCL 20 MEQ/100 mL IVPB 20 MEQ/100 ML BAG IV ONE (13:13)
[2021-01-08 13:37] LABS: Urine Blood Negative (Negative); Urine Glucose Negative (Negative); Urine Protein 2+ (Negative)
--- NOTE | 2021-01-08 14:42 | P.HP ---
Certification for Inpatient Patient admitted to: Observation With expected LOS: <2 Midnights Patient will require the following post-hospital care: None Practitioner: I am a practitioner with admitting privileges, knowledge of patient current condition, hospital course, and medical plan of care. Services: Services provided to patient in accordance with Admission requirements found in Title 42 Section 412.3 of the Code of Federal Regulations Patient History Date of Service: 01/08/21 Primary Care Provider: None known Reason for admission: Atypical Chest Pain History of Present Illness: Chest Single View - 01/08/2021 9:55 am CLINICAL HISTORY: CHEST PAIN COMPARISON: Chest Single View dated 01/02/2021; Chest Single View dated 01/01/2021; Chest Single View dated 12/26/2020; Chest Single View dated 12/23/2020 FINDINGS: Asymmetric pulmonary opacities are present, greater on the left, suspicious for viral infection/ underlying bronchitis. The heart is upper limit of normal in size. Left-sided PICC line has tip in the SVC. Chemistries remarkable for potassium of 2.7 and Magnesium of 1.7. BNP was 472 and the troponin was 0.02. CBC unremarkable. 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 As in the past, this is led to decreased potassium and magnesium levels. When her electrolytes are out of balance she develops chest pain, as she did this morning. She came to the ER to be evaluated and was found to have hypokalemia and hypomagnesia. She is currently having her electrolytes replaced. She states that she is beginning to feel better. Her chest pain is decreasing. She will be admitted for further electrolyte replacement and observation. Allergies iopamidol [From [id number]] Allergy (Verified 01/03/21 00:13) Shortness of breath Home medications list reviewed: Yes Home Medications: Folic Acid 1 mg PO DAILY 12/07/20 Gabapentin [Neurontin] 800 mg PO BID 12/07/20 Hydromorphone [Dilaudid*] 4 mg PO Q4HP PRN 12/07/20 Morphine Sulfate [Morphine Sulfate ER] 100 mg PO Q12H 12/07/20 OLANZapine [Olanzapine] 2.5 mg PO BEDTIME PRN PRN 12/07/20 Promethazine Tab [Phenergan*] 25 mg PO Q4H PRN 12/23/20 Docusate [Colace Cap*] 100 mg PO DAILY #30 cap 12/30/20 Ensure Clear 237 ml PO BID #60 can 12/30/20 Potassium Chloride [K-Dur] 40 meq PO DAILY #60 tab.er.prt 12/30/20 levoFLOXacin [Levaquin*] 500 mg PO DAILY #5 tab 12/30/20 Metoprolol Tartrate [Lopressor*] 25 mg PO BID #60 tab 01/06/21 Spironolactone [Aldactone*] 25 mg PO BID #60 tab 01/06/21 - Past Medical/Surgical History Has patient received pneumonia vaccine in the past: No Diabetic: No -: breast cancer -: liposarcoma -: HTN (resolved) -: mastectomy -: hysterectomy -: R hip replacement Psychosocial/ Personal History: Retired, lives at home by self - Family History Mother -: Diabetes Father -: Cancer Notes: lung cancer Brother -: Hypertension, Diabetes Sister -: Liver disease Notes: cirrhosis - Social History Smoking Status: Never smoker Alcohol use: No CD- Drugs: Yes Caffeine use: No Place of Residence: Home Review of Systems 10-point ROS is otherwise unremarkable General: Unremarkable Eyes: Unremarkable ENT: Unremarkable Respiratory: Unremarkable Cardiovascular: Chest Pain, As per HPI Gastrointestinal: Unremarkable Genitourinary: Unremarkable Musculoskeletal: Pedal edema, Other (lymphodema left leg) Integumentary: Unremarkable Neurological: Weakness Lymphatics: Enlarged lymph nodes (left leg) Physical Examination - Physical Exam General: Alert, In no apparent distress, Oriented x3 HEENT: Atraumatic, Normocephalic, PERRLA Neck: Supple, JVD not distended Respiratory: Clear to auscultation bilaterally, Normal air movement Cardiovascular: Normal pulses, Regular rate/rhythm Capillary refill: <2 Seconds Gastrointestinal: Soft and benign, Non-distended Musculoskeletal: No clubbing, No swelling, No contractures, Other (swelling left leg) Neurological: Normal tone, Sensation intact Lymphatics: Other (lymphodema left leg) External genitalia: Deferred Rectal: Deferred - Studies Laboratory Data (last 24 hrs) 01/08/21 09:16: PT 14.3 H, INR 1.24 01/08/21 09:16: WBC 10.20, Hgb 9.1 L, Hct 27.4 L, Plt Count 271 D 10/25/21 09:16: Sodium 145, Potassium 2.7 L*, BUN 6 L, Creatinine 0.58, Glucose 82, Magnesium 1.7 L, Total Bilirubin 0.4, AST 6 L, ALT 8 L, Alkaline Phosphatase 94 Assessment and Plan - Plan Assessment: Atypical chest pain Sarcoma Plan: Atypical chest pain: Monitor, trend troponin and cardiac labs, replace e lectrolytes, O2 as necessary, pain medication. Sarcoma: non-contributory. Continue medications. DVT PPx: Eliquis CODE STATUS: DNR Discharge Plan: Home Plan to discharge in: 24 Hours - Advance Directives Does patient have a Living Will: Yes Does patient have a Durable POA for Healthcare: Yes - Code Status/Comfort Care Code Status Assessed: Yes Code Status: Do Not Attempt Resuscitat Critical Care: No Time Spent Managing Pts Care (In Minutes): 70
[2021-01-08 16:08] LABS: SARS-COV-2 RT PCR NEGATIVE (NEGATIVE)
[2021-01-08] MEDS ORDERED: HYDROMORPHONE HCL 2 MG/ML inj ONE ×2 (16:45→20:51)
[2021-01-08] MEDS ORDERED: ACETAMINOPHEN 500 MG TAB PO PRN (18:05)
[2021-01-08] MEDS ORDERED: MORPHINE 2 MG/ML SYR IV PRN (18:05)
[2021-01-08] MEDS ORDERED: ONDANSETRON 4 MG/2 ML VIAL IV PRN (18:05)
[2021-01-08] MEDS ORDERED: MAGNESIUM SULFATE 1 gm IVPB 1 GM/100 ML BAG IV ONE ×2 (20:30→20:51)
[2021-01-08] MEDS: PROMETHAZINE INJ 25 MG/ML AMP IV PRN ×2 (20:31→23:50)
[2021-01-08] MEDS ORDERED: PROMETHAZINE INJ 25 MG/ML AMP ONE (20:49)
[2021-01-08] MEDS ORDERED: APIXABAN 5 MG TABLET PO SCH (21:00)
[2021-01-08] MEDS ORDERED: POTASSIUM CL 60 MEQ in NA CHLORIDE 0.9% 500 ML IV SCH (21:00)
[2021-01-08 21:43] LABS: Troponin I 0.03 ng/mL (0.0-0.045)
[2021-01-08] MEDS: GABAPENTIN 300 MG CAP PO SCH (22:47)
[2021-01-08] MEDS ORDERED: KCL 20 MEQ/100 mL IVPB 40 MEQ/200 ML BAG IV ONE (23:58)
[2021-01-09] MEDS: NA CHLORIDE 0.9% 1,000 ML IV SCH ×3 (00:05→11:51)
[2021-01-09] MEDS ORDERED: PROMETHAZINE INJ 25 MG/ML AMP ONE (00:11)
[2021-01-09] MEDS ORDERED: HYDROMORPHONE HCL 2 MG/ML inj ONE (00:11)
[2021-01-09] MEDS ORDERED: NA CHLORIDE 0.9% 1,000 ML ONE (00:12)
[2021-01-09] MEDS: KCL 20 MEQ/100 mL IVPB 20 MEQ/100 ML BAG IV SCH ×2 (00:24→05:48)
[2021-01-09 00:57] LABS: Urine Appearance CLOUDY (Clear); Urine Blood NEGATIVE (Negative); Urine Color YELLOW (Yellow); Urine Glucose NEGATIVE (Negative); Urine Protein 1+ (Negative); Urine Specific Gravity 1.015 (1.005-1.030); Urine pH 6.5 (5.0-7.0)
[2021-01-09 01:19] LABS: Urine Bilirubin NEGATIVE (Negative); Urine Microscopic Reflex ORDER UMIC
[2021-01-09 01:23] LABS: Urine Bacteria 20-50 /HPF (<20); Urine Mucus 1+ /HPF (NONE SEEN); Urine RBC <5 /HPF (NONE SEEN); Urine Urothelial Cells <5 /HPF (NONE SEEN)
[2021-01-09 03:51] VITALS: BMI 39.2
[2021-01-09] MEDS: PROMETHAZINE INJ 25 MG/ML AMP IV PRN ×5 (03:57→20:03)
[2021-01-09] MEDS: HYDROMORPHONE HCL 1 MG/ML INJ IV PRN ×5 (03:58→20:00)
[2021-01-09 07:34] LABS: Absolute Lymphocytes (CBC) 0.6 K/uL (0.7-4.9); Basophils % 0.5 % (0-1.3); Hematocrit 24.9 % (36.0-45.0); Lymphocytes % 7.2 % (15.3-44.8); MPV 7.1 fL (7.6-11.3); RBC Red Blood Cell Count 3.16 M/uL (3.86-4.86)
[2021-01-09 07:37] LABS: ALT/SGPT 7 U/L (12-78); AST/SGOT 8 U/L (15-37); Albumin 2.6 g/dL (3.4-5.0); Alkaline Phosphatase 87 U/L (45-117); BUN Blood Urea Nitrogen 6 mg/dL (7-18); Bicarbonate 29 mmol/L (21-32); Bilirubin Total 0.3 mg/dL (0.2-1.0); Glucose Level 84 mg/dL (74-106); Magnesium 2.3 mg/dL (1.8-2.4); Protein, Total 6.5 g/dL (6.4-8.2); Sodium Level 144 mmol/L (136-145)
[2021-01-09] MEDS: GABAPENTIN 300 MG CAP PO SCH ×3 (07:53→21:03)
[2021-01-09] MEDS ORDERED: POTASSIUM 25 MEQ EFFERV TAB PO ONE ×3 (08:04→23:59)
[2021-01-09 08:36] LABS: Anisocytosis 1+; Blood Morphology Comment NOTED (NOT SEEN); Platelet Estimate ADEQ; White Blood Cell Scan OK (OK)
--- NOTE | 2021-01-09 12:13 | EKG ---
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
--- NOTE | 2021-01-09 16:14 | P.PN ---
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 Patient may be having difficulty absorbing the potassium, will trial p.o. potassium meds in the next 24 hours to ensure if she improves with this, she should continue to improve at home. Still having pain and hypokalemia Patient has been in the ER/hospitalized for this multiple times in the last month, high risk for bounce back will replet with PO potassium only this afternoon if needed, to eval for GI absorption Code: DNR Dispo: anticipate dc home in ~24hrs
[2021-01-10] MEDS: HYDROMORPHONE HCL 1 MG/ML INJ IV PRN ×6 (00:14→23:00)
[2021-01-10] MEDS: PROMETHAZINE INJ 25 MG/ML AMP IV PRN ×6 (00:15→23:00)
[2021-01-10 06:04] LABS: Absolute Lymphocytes (CBC) 0.8 K/uL (0.7-4.9); Basophils % 0.5 % (0-1.3); Hematocrit 24.9 % (36.0-45.0); Lymphocytes % 9.5 % (15.3-44.8); MPV 7.3 fL (7.6-11.3); RBC Red Blood Cell Count 3.14 M/uL (3.86-4.86)
[2021-01-10 06:17] LABS: ALT/SGPT 10 U/L (12-78); AST/SGOT 7 U/L (15-37); Albumin 2.6 g/dL (3.4-5.0); Alkaline Phosphatase 103 U/L (45-117); BUN Blood Urea Nitrogen 8 mg/dL (7-18); Bicarbonate 28 mmol/L (21-32); Bilirubin Total 0.3 mg/dL (0.2-1.0); Glucose Level 102 mg/dL (74-106); Magnesium 2.2 mg/dL (1.8-2.4); Protein, Total 6.6 g/dL (6.4-8.2); Sodium Level 145 mmol/L (136-145)
[2021-01-10] MEDS ORDERED: POTASSIUM 25 MEQ EFFERV TAB PO ONE (07:00)
[2021-01-10 07:47] LABS: Anisocytosis 1+; Blood Morphology Comment NOTED (NOT SEEN); Platelet Estimate ADEQ; Poikilocytosis SLIGHT; White Blood Cell Scan OK (OK)
[2021-01-10] MEDS ORDERED: KCL 10 MEQ/100 ML IVPB 10 MEQ/100 ML BAG IV SCH (09:00)
[2021-01-10] MEDS: GABAPENTIN 300 MG CAP PO SCH ×3 (09:44→21:15)
[2021-01-10] MEDS ORDERED: POTASSIUM CL 40 MEQ in NA CHLORIDE 0.9% 500 ML IV SCH (10:00)
[2021-01-10] MEDS ORDERED: DOCUSATE NA 100 MG CAP PO PRN (14:43)
--- NOTE | 2021-01-10 18:01 | P.PN ---
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 Patient may be having difficulty absorbing the potassium, will trial p.o. potassium meds in the next 24 hours to ensure if she improves with this, she should continue to improve at home. Still having pain and hypokalemia Patient has been in the ER/hospitalized for this multiple times in the last month, high risk for bounce back PO potassium maintained K: 3.0 will give IV potassium today, recheck K in afternoon, patient wants to go home today if no significant improvement, will repeat tomorrow goal of K > 3.5 Code: DNR Dispo: anticipate dc home in ~24hrs
[2021-01-10] MEDS: POTASSIUM 25 MEQ EFFERV TAB PO SCH (21:00)
[2021-01-11] MEDS: HYDROMORPHONE HCL 1 MG/ML INJ IV PRN ×2 (02:52→06:43)
[2021-01-11] MEDS: PROMETHAZINE INJ 25 MG/ML AMP IV PRN ×6 (02:53→22:39)
[2021-01-11 05:33] LABS: BUN Blood Urea Nitrogen 7 mg/dL (7-18); Bicarbonate 30 mmol/L (21-32); Glucose Level 93 mg/dL (74-106); Potassium 3.1 mmol/L (3.5-5.1); Sodium Level 145 mmol/L (136-145)
[2021-01-11] MEDS: KCL 20 MEQ/100 mL IVPB 20 MEQ/100 ML BAG IV SCH ×2 (07:00→09:00)
[2021-01-11] MEDS ORDERED: POTASSIUM CL SA 10 MEQ TAB PO ONE ×2 (07:22→11:33)
[2021-01-11 07:50] LABS: Thyroid Stimulating Hormone 2.08 uIU/mL (0.360-3.740); Uric Acid 2.4 mg/dL (2.6-6.0)
[2021-01-11] MEDS: POTASSIUM CL 40 MEQ in NA CHLORIDE 0.9% 500 ML IV SCH ×2 (10:50→14:55)
[2021-01-11] MEDS: HYDROMORPHONE HCL 2 MG/ML inj IV PRN ×4 (10:50→22:39)
[2021-01-11] MEDS: POTASSIUM 25 MEQ EFFERV TAB PO SCH ×2 (10:51→20:19)
[2021-01-11] MEDS: GABAPENTIN 300 MG CAP PO SCH ×3 (10:53→20:18)
[2021-01-11 12:16] LABS: UR PROTEIN 76.8 mg/dL (<11.9); Urine Protein/Creatinine Ratio 0.84 ratio (<0.15)
[2021-01-11] MEDS: SPIRONOLACTONE 25 MG TABLET PO SCH (13:21)
--- NOTE | 2021-01-11 16:09 | CON ---
Date of Consultation: 01/11/2021 Reason For Consultation: Persistent hypokalemia in spite of aggressive supplement. History Of Present Illness: This is a pleasant 60-year-old female without any significant past medical history except sarcoma on the left groin recently diagnosed. The patient has been on chemotherapy by Dr. Beverly for the last 4 months. The patient came to the hospital complaining of atypical chest pain with pain on the left groin and swelling on the leg. The patient denied taking any nonsteroidal. No recent change in her medications. The patient recently admitted to the hospital. At that time, the patient's potassium was supplemented and placed on spironolactone. 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 The patient came back to the hospital, found to be hypokalemic. Potassium down to 2.7 with marginal low magnesium. For that reason, we have been consulted. The patient denied any diarrhea, no vomiting but has nausea. Home Medications: Include, 1. Folic acid. 2. Gabapentin. 3. Hydromorphone. 4. tylenol 5. Promethazine. 6. Ensure. 7. KCl. 8. Levaquin. 9. Metoprolol. Past Surgical History: Include hysterectomy and mastectomy, liposarcoma removal. Past Medical History: 1. Breast cancer, status post mastectomy. 2. Sarcoma. 3. Hypertension. Family History: Positive for diabetes and cancer. Social History: Denies smoking, denies drinking, denies drug abuse. Review of Systems: Head and Neck: No red eye. No ear pain. GI: Has nausea without vomiting. : No polyuria, no dysuria, no hematuria. Radio Operator Ground: No vaginal discharge. Respiratory: No shortness of breath. Cardiovascular: Has atypical chest pain. Endocrine: No polydipsia. Skin: No rash. Neuro: Has low back pain. Musculoskeletal: Left leg pain. Physical Examination: Vital Signs: When I saw the patient; blood pressure 110/62, pulse of 86, afebrile. Chest: Clear to auscultation. Heart: S1, S2. Regular. Abdomen: Soft. Morbidly obese. Extremity: Swelling on the left leg. Neurological: Alert, oriented x3. Nonfocal. Laboratory Data: WBC 8.1, H and H 8.3/24.9, platelets 312. Sodium 145, potassium 3.1, bicarb 29, BUN 7, creatinine 0.6, calcium 8.1, albumin of 2.6, corrected calcium is 9.3, magnesium of 2. Upon admission, magnesium was 1.7. Urinalysis +1/+2 protein. Still pending urine electrolyte and the quantification for protein creatinine. Chest x-ray; marginal cardiomegaly, no significant infiltration. CT with contrast was done back in October, no PE. Assessment And Plan: 1. Hypokalemia present with previous Hypomagnesemia. I am going to go ahead and give aggressive supplement with p.o. and IV of total 160. We will check the lab after 2 hour of supplement and I am going to go ahead and send for urine protein creatinine to quantify the proteinuria and we will send for urine electrolytes to evaluate if the patient has any salt wasting/Fanconi secondary to the chemo or paraneoplastic. After collecting the electrolyte, we will start the patient on Aldactone 25 mg daily and we will follow up the patient. 2. Unilateral leg swelling with sarcoma on the left thigh. We will follow up with the primary. We will consider ultrasound to rule out any deep venous thrombosis. time spent exam the patient face to face placing order , reviewing the date lab and radiology , discussing with nursing stafe and discussing the case with other rehab consultant ICU and hospitalist [employer]Min ALANA/MALACHI Voice ID: [id number] Report ID: [id number] JACKI
--- NOTE | 2021-01-11 16:39 | P.PN ---
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 nephrology consulted Patient has been in the ER/hospitalized for this multiple times in the last month, high risk for bounce back increase potassium, start spironolactone Code: DNR Dispo: anticipate dc home in ~24hrs
--- NOTE | 2021-01-11 20:17 | RAD REPORT ---
EXAM DESCRIPTION: US - Extremity Venous Uni Ltd - 01/11/2021 4:24 pm CLINICAL HISTORY: swelling, off eliquis COMPARISON: Extrem Venous W Compress Simone dated 10/27/2020; Angio Aorta For Dissection dated 08/20/2020 FINDINGS: Nondiagnostic ultrasound. The patient would not tolerate compression. IMPRESSION: Nondiagnostic left lower extremity venous ultrasound.
[2021-01-11] MEDS: APIXABAN 5 MG TABLET PO SCH (20:18)
[2021-01-12] MEDS: HYDROMORPHONE HCL 2 MG/ML inj IV PRN ×4 (05:26→17:30)
[2021-01-12] MEDS: PROMETHAZINE INJ 25 MG/ML AMP IV PRN ×4 (05:26→17:30)
[2021-01-12 05:59] LABS: Hematocrit 24.8 % (36.0-45.0); MPV 7.1 fL (7.6-11.3); RBC Red Blood Cell Count 3.09 M/uL (3.86-4.86)
[2021-01-12 06:07] LABS: BUN Blood Urea Nitrogen 5 mg/dL (7-18); Bicarbonate 30 mmol/L (21-32); Glucose Level 101 mg/dL (74-106); Magnesium 1.9 mg/dL (1.8-2.4); Potassium 3.4 mmol/L (3.5-5.1); Sodium Level 146 mmol/L (136-145)
[2021-01-12] MEDS ORDERED: KCL 20 MEQ/100 mL IVPB 20 MEQ/100 ML BAG IV SCH (08:00)
[2021-01-12 08:38] VITALS: O2SAT 99
--- NOTE | 2021-01-12 09:06 | P.PN ---
Subjective Date of Service: 01/12/21 Primary Care Provider: None known Chief Complaint: Atypical Chest Pain Subjective: Other (No new complaints.) Physical Examination - Vital Signs Temperature: 97.1 F Blood Pressure: 113/60 Pulse: 74 Respirations: 16 Pulse Ox (%): 93 - Physical Exam General: In no apparent distress HEENT: Atraumatic, Normocephalic Respiratory: Clear to auscultation bilaterally Cardiovascular: Edema (LLE) Musculoskeletal: No clubbing, Swelling Integumentary: No rashes Urinary: Other (no bladder distention) External genitalia: Deferred Rectal: Deferred Assessment And Plan - Plan # Hypokalemia 2/2 renal K wasting likely drug/chemotx related Start Amiloride 10 mg po daily KCl 20 meq po bid # HypoMg likely 2/2 renal Mg wasting likely drug/chemotx related Start Amiloride as above Start Slow-Mag low dose 64 mg po dailyl Avoid PPI # 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 DVT +LLE edema & discomfort On anticoagulation therapy Wear graduated compression stockings on LLE during the daytime # GERD Pepcid prn Avoid PPI as above # Dispo Dc today Check renal panel + serum Mg on 01/15 & 01/18 F/u w/ me in renal clinic on 01/18
[2021-01-12] MEDS: APIXABAN 5 MG TABLET PO SCH (09:38)
[2021-01-12] MEDS: SPIRONOLACTONE 25 MG TABLET PO SCH (09:38)
[2021-01-12] MEDS: GABAPENTIN 300 MG CAP PO SCH ×2 (09:39→13:40)
[2021-01-12] MEDS: POTASSIUM 25 MEQ EFFERV TAB PO SCH (09:51)
[2021-01-12] MEDS ORDERED: AMILORIDE HCL 5 MG TABLET PO SCH (10:30)
[2021-01-12] MEDS ORDERED: MAGNESIUM CHLORIDE 64 MG TAB PO SCH (10:30)
--- NOTE | 2021-01-12 15:46 | P.DS ---
Admission Date: 01/10/21 Discharge Date: 01/12/21 Primary Care Provider: None known Disposition: ROUTINE DISCHARGE Discharge Condition: GOOD Reason for Admission: Atypical Chest Pain Consultations: Nephrology - Dr. Garcia/Jaswinder Procedures: CXR (01/08): FINDINGS: Portable technique limits examination quality. Asymmetric pulmonary opacities are present, greater on the left, suspicious for viral infection/ underlying bronchitis. The heart is upper limit of normal in size. Left-sided PICC line has tip in the SVC. 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 As in the past, this is led to decreased potassium and magnesium levels. When her electrolytes are out of balance she develops chest pain, as she did this m hesham. She came to the ER to be evaluated and was found to have hypokalemia and hypomagnesia. She is currently having her electrolytes replaced. She states that she is beginning to feel better. Her chest pain is decreasing. She will be admitted for further electrolyte replacement and observation. Hospital Course: Patient's magnesium and potassium were repleted. This was difficult to achieve due to persistent hypokalemia. Uncertain days requiring over 100 mEq of potassium. Work-up revealed potassium wasting in her urine, due to her chemotherapy medications. Nephrology was consulted, recommended treatment with amiloride as well as potassium and magnesium replacement. Patient had slow/eventual improvement of her hypokalemia. She was discharged home with 20 mEq potassium twice daily in addition to 10 mg daily amiloride. She is to have biweekly lab testing on Mondays and . Air Reduction Equipment Operator will follow up on blood test on Friday and call patient for any changes. follow-up with balance truer next in the office. Chest pain improved with correction of her potassium. Troponins remained negative, she was monitored on telemetry without any acute events. Vital Signs/Physical Exam: Physical exam GEN: Alert, oriented, NAD HEENT: Normal conjunctiva, sclera anicteric CV: Regular rate and rhythm, 2+ edema in LLE Pulm: Nonlabored respiration on room air ABD: Soft, nontender, nondistended Integumentary: No rashes Neuro: Normal speech, normal affect Temp Pulse Resp BP Pulse Ox 97.0 F 80 16 120/59 L 99 01/12/21 12:00 01/12/21 12:00 01/12/21 12:00 01/12/21 12:00 01/12/21 12:00 Laboratory Data at Discharge: WBC 6.50 K/uL (4.3-10.9) D 01/12/21 05:40 Hgb 8.0 g/dL (12.0-15.0) L 01/12/21 05:40 Hct 24.8 % (36.0-45.0) L 01/12/21 05:40 Plt Count 357 K/uL (152-406) 01/12/21 05:40 PT 14.3 SECONDS (9.5-12.5) H 01/08/21 09:16 INR 1.24 01/08/21 09:16 Sodium 146 mmol/L (136-145) H 01/12/21 05:40 Potassium 3.4 mmol/L (3.5-5.1) L 01/12/21 05:40 BUN 5 mg/dL (7-18) L 01/12/21 05:40 Creatinine 0.62 mg/dL (0.55-1.3) 01/12/21 05:40 Glucose 101 mg/dL (74-106) 01/12/21 05:40 Uric Acid 2.4 mg/dL (2.6-6.0) L 01/11/21 05:05 Magnesium 1.9 mg/dL (1.8-2.4) 01/12/21 05:40 Total Bilirubin 0.3 mg/dL (0.2-1.0) 01/10/21 05:16 AST 7 U/L (15-37) L 01/10/21 05:16 ALT 10 U/L (12-78) L 01/10/21 05:16 Alkaline Phosphatase 103 U/L (45-117) 01/10/21 05:16 Troponin I 0.02 ng/mL (0.0-0.045) 01/09/21 07:00 Home Medications: Folic Acid 1 mg PO DAILY 12/07/20 Gabapentin [Neurontin] 800 mg PO BID 12/07/20 Hydromorphone [Dilaudid*] 4 mg PO Q4HP PRN 12/07/20 Morphine Sulfate [Morphine Sulfate ER] 100 mg PO Q12H 12/07/20 OLANZapine [Olanzapine] 2.5 mg PO BEDTIME PRN PRN 12/07/20 Promethazine Tab [Phenergan*] 25 mg PO Q4H PRN 12/23/20 Docusate [Colace Cap*] 100 mg PO DAILY #30 cap 12/30/20 Ensure Clear 237 ml PO BID #60 can 12/30/20 Metoprolol Tartrate [Lopressor*] 25 mg PO BID #60 tab 01/06/21 Amiloride HCl [Midamor*] 2 tab PO DAILY 30 Days #60 tablet 01/12/21 Apixaban [Eliquis] 5 mg PO BID tablet 01/12/21 Magnesium Chloride [Slow-Mag*] 64 mg PO DAILY 30 Days #30 tab 01/12/21 Potassium Oral Tab [Klor-Con 10 mEq Tab*] 20 meq PO BID 30 Days #120 tab 01/12/21 New Medications: Potassium Oral Tab [Klor-Con 10 mEq Tab*] 20 meq PO BID 30 Days #120 tab Amiloride HCl [Midamor*] 2 tab PO DAILY 30 Days #60 tablet Magnesium Chloride [Slow-Mag*] 64 mg PO DAILY 30 Days #30 tab Physician Discharge Instructions: You were found to have low potassium. Workup revealed potassium wasting in your urine, most consistent with side effect from your chemo. Nephrology was consulted, and you were started on amiloride and lowered the dose of your potassium. The amiloride will help hold on to your potassium and not urinate it out. Follow up with Dr. San as scheduled next week. You will need bi-weekly blood work. Diet: Regular Activity: Ad stella Followup: Miriam San [ACTIVE - CAN ADMIT] - (Call to schedule follow up appointment.) Time spent managing pt's care (in minutes): 45
[2021-01-12 15:48] VITALS: BP 108/67; TEMP 97.7
[2021-01-12] MEDS ORDERED: POTASSIUM CL SA 10 MEQ TAB PO SCH (21:00)
== END 2021-01-12 19:45 | disposition home health service (06) | DRG 641 ==
LOC: ER 09:05 → ERHOLD 14:29 → 2ND 17:29 → OBSVTOIN 01-10 09:28
PROVIDERS: ADMIT Internal Medicine; ATTEND Internal Medicine
DX: E87.6 Hypokalemia (principal); C49.5 Malignant neoplasm of connective and soft tissue of pelvis; E83.42 Hypomagnesemia; R07.89 Other chest pain; D64.81 Anemia due to antineoplastic chemotherapy; T45.1X5A Adverse effect of antineoplastic and immunosuppressive drugs, initial encounter; K21.9 Gastro-esophageal reflux disease without esophagitis; M79.89 Other specified soft tissue disorders; Z85.3 Personal history of malignant neoplasm of breast; Z66 Do not resuscitate; Z86.718 Personal history of other venous thrombosis and embolism; Z79.01 Long term (current) use of anticoagulants; Z96.641 Presence of right artificial hip joint; Z20.822 Contact with and (suspected) exposure to COVID-19
CPT/HCPCS: 0241U; 36415; 71045; 80048; 80053; 80076; 81003; 81015; 82570; 83735; 83880; 83935; 84132; 84156; 84300; 84443; 84484; 84550; 85025; 85027; 85610; 87086; 87088; 93005; 93971; 94760; 99285; G0378; J1170; J2270; J2405; J2550; J3475; J3480; J7030; J7040

== ENCOUNTER 2021-01-15 12:09 | Inpatient (IN) | payer OTHER ==
[2021-01-15 13:05] LABS: Absolute Lymphocytes (CBC) 0.7 K/uL (0.7-4.9); Basophils % 1.2 % (0-1.3); Hematocrit 25.6 % (36.0-45.0); Lymphocytes % 10.7 % (15.3-44.8); MPV 6.9 fL (7.6-11.3); RBC Red Blood Cell Count 3.21 M/uL (3.86-4.86)
[2021-01-15 13:10] LABS: Protime INR 1.15
[2021-01-15 13:34] LABS: ALT/SGPT 9 U/L (12-78); AST/SGOT 5 U/L (15-37); Albumin 2.8 g/dL (3.4-5.0); Alkaline Phosphatase 79 U/L (45-117); BUN Blood Urea Nitrogen 6 mg/dL (7-18); Bicarbonate 25 mmol/L (21-32); Bilirubin Direct 0.2 mg/dL (0-0.2); Bilirubin Total 0.5 mg/dL (0.2-1.0); Glucose Level 78 mg/dL (74-106); Magnesium 1.9 mg/dL (1.8-2.4); NT PRO-BNP 548 pg/mL (<125); Potassium 3.1 mmol/L (3.5-5.1); Protein, Total 7.1 g/dL (6.4-8.2); Sodium Level 141 mmol/L (136-145); Troponin (Emerg Dept Use Only) < 0.02 ng/mL (0.0-0.045)
[2021-01-15 13:36] LABS: Anisocytosis 1+; Blood Morphology Comment NOTED (NOT SEEN); Platelet Estimate ADEQ; White Blood Cell Scan OK (OK)
[2021-01-15] MEDS ORDERED: HYDROMORPHONE HCL 1 MG/ML INJ ONE ×2 (13:58→14:05)
[2021-01-15] MEDS ORDERED: ONDANSETRON 4 MG/2 ML VIAL ONE (13:58)
--- NOTE | 2021-01-15 14:01 | RAD REPORT ---
EXAM DESCRIPTION: RAD - Chest Single View - 01/15/2021 1:53 pm CLINICAL HISTORY: CHEST PAIN COMPARISON: Chest Single View dated 01/08/2021; Chest Single View dated 01/02/2021; Chest Single Vie w dated 01/01/2021; Chest Single View dated 12/26/2020 FINDINGS: Lines: Left subclavian approach PICC with tip overlying the superior cavoatrial junction. Lungs: No evidence of edema or pneumonia. Pleural: No significant pleural effusions or pneumothorax. Cardiac: The heart size is within normal limits. Bones: No acute fractures. Advanced degenerative changes are present in the shoulders. Other: Surgical clips in the right axilla. IMPRESSION: No acute cardiopulmonary disease.
[2021-01-15] MEDS ORDERED: PROMETHAZINE INJ 25 MG/ML AMP ONE (14:04)
--- NOTE | 2021-01-15 14:38 | ER ---
Nurse's Notes [facility] [place] Name: Sade Galdamez Age: 60 yrs Sex: Female : 1960 Arrival Date: 01/15/2021 Time: 12:11 Bed 18 Private MD: Diagnosis: Chest pain, unspecified Presentation: 01/15 12:13 Chief complaint: EMS states: [place] [facility]; EMS 6. Coronavirus screen: Client denies [facility] travel out of the [place] in the last 14 days. Ebola Screen: No symptoms or risks identified at this time. Initial Sepsis Screen: Does the patient meet any 2 criteria? No. Patient's initial sepsis screen is negative. Does the patient have a suspected source of infection? No. Patient's initial sepsis screen is negative. Risk Assessment: Do you want to hurt yourself or someone else? Patient reports no desire to harm self or others. Onset of symptoms was January 15, 2021. 12:13 Method Of Arrival: EMS: [facility] 12:13 Acuity: ABDIRIZAK 3 [facility] Triage Assessment: 12:19 General: Appears in no apparent distress. Behavior is calm, cooperative. Pain: [facility] Complains of pain in mid-sternal area Pain radiates to back. Neuro: Level of Consciousness is awake, alert, obeys commands, Oriented to person, place, time, situation, Appropriate for age Speech is normal. Cardiovascular: Reports chest pain, nausea. Cardiovascular: Capillary refill < 3 seconds Patient's skin is warm and dry. Respiratory: Airway is patent Trachea midline Respiratory effort is even, unlabored. Historical: - Allergies: 12:16 Iodine; [facility] - Home Meds: 12:16 Eliquis Oral [Active]; Hydromorphone Oral [Active]; Phenergan Oral [Active]; [facility] - PMHx: 12:16 breast cancer; chemotherapy; Hypertension; Tumor to groin area; [facility] - PSHx: 12:16 ovi mastectomy; hysterectomy; [facility] - Immunization history:: Adult Immunizations unknown, Client reports receiving the 2nd dose of the Covid vaccine, Last tetanus immunization: unknown, . - Social history:: Smoking status: Patient denies any tobacco usage or history of. Screenin:21 Abuse screen: Denies threats or abuse. Nutritional screening: No deficits noted. sl2 Tuberculosis screening: No symptoms or risk factors identified. Never had TB. Possible symptoms: None Risk factors: None. Fall Risk None identified. Assessment: 12:25 General: Appears uncomfortable, obese, well groomed, well developed, Behavior is sl2 cooperative, crying, restless, Reports epigastric pain and left lower quadrant abdomen radiating to left groin. 12:25 Pain: Complains of pain in epigastric area, LLQ abdomen, left groin Pain radiates to sl2 back. left groin Pain currently is 8 out of 10 on a pain scale. at worst was 10 out of 10 on a pain scale. level that patient reports is acceptable is 3 out of 10 on a pain scale. Quality of pain is described as aching, sharp, Pain began gradually, Is continuous, Alleviated by medications. Neuro: No deficits noted. Level of Consciousness is awake, alert, obeys commands, Oriented to person, place, time, situation, Sales Property Manager are equal bilaterally Moves all extremities. Gait is steady, Speech is normal. Cardiovascular: No deficits noted. Reports nausea, Epigastric pain Denies diaphoresis, lightheadedness, palpitations, shortness of breath, Capillary refill < 3 seconds Rhythm is sinus rhythm Chest pain quality is sharp. Respiratory: No deficits noted. Airway is patent Trachea midline Respiratory effort is even, unlabored, Respiratory pattern is regular, symmetrical, Breath sounds are clear bilaterally. GI: No signs and/or symptoms were reported involving the gastrointestinal system. GI: Abdomen is round obese, Bowel sounds present X 4 quads. Abd is soft and non tender Reports epigastric pain, nausea, LLQ abdominal pain, left groin pain Patient currently denies diarrhea, incontinence. : No signs and/or symptoms were reported regarding the genitourinary system. EENT: No deficits noted. Derm: No signs and/or symptoms reported regarding the dermatologic system. Musculoskeletal: No signs and/or symptoms reported regarding the musculoskeletal system. 13:27 Reassessment: Portable CXR completed at bedside. sl2 13:47 Pain: Pain currently is 5 out of 10 on a pain scale. sl2 18:30 Pain: Pain currently is 4 out of 10 on a pain scale. sl2 Vital Signs: 12:13 BP 150 / 81; Pulse 83; Resp 17; Pulse Ox 100% ; jh5 13:15 BP 149 / 86; Pulse 82; Resp 18; Temp 98.8(O); Pulse Ox 100% on R/A; sl2 14:00 BP 140 / 79; Pulse 89; Resp 18; Temp 98.6; Pulse Ox 99% ; sl2 15:00 BP 137 / 77; Pulse 80; Resp 18; Pulse Ox 99% on R/A; sl2 16:00 BP 146 / 81; Pulse 93; Resp 18; Pulse Ox 98% on R/A; sl2 17:00 BP 126 / 85; Pulse 81; Resp 18; Temp 98.4(O); Pulse Ox 99% on R/A; sl2 18:30 BP 131 / 70; Pulse 91; Resp 18; Temp 98.6(O); Pulse Ox 99% on R/A; 2 ED Course: 12:11 Patient arrived in ED. [facility] 12:16 Triage completed. [facility] 12:21 Nataliia Moody, RN is Primary Nurse. [facility] 12:21 Arm band placed on right wrist. [facility] 12:21 Patient has correct armband on for positive identification. Bed in low position. Call [facility] light in reach. Side rails up X2. ekg monitor on. Pulse ox on. NIBP on. Door closed. Noise minimized. Warm blanket given. 12:25 Accessed PICC line. Clean \T\ dry. Dressing intact. Good blood return. Flushes easily. 2 Patient maintains SpO2 saturation greater than 95% on room air. 12:27 [facility] Chow [facility] 12:27 Jean Carlos Pinzon MD is Attending Physician. [facility] 13:53 XRAY Chest (1 view) In Process Unspecified. EDMS 14:37 Scott Coffey MD is Hospitalizing Provider. [facility] Administered Medications: 13:03 Drug: Promethazine 25 mg Route: IVP; Site: left upper arm; sl2 13:46 Follow up: Response: No adverse reaction; Nausea is decreased sl2 13:05 Drug: Dilaudid (HYDROmorphone) 1 mg Route: IVP; Site: left upper arm; sl2 13:46 Follow up: Response: No adverse reaction; Pain is decreased 2 13:05 Drug: Dilaudid (HYDROmorphone) 1 mg Route: IVP; Site: left upper arm; sl2 13:46 Follow up: Response: No adverse reaction; Pain is decreased sl2 13:32 Not Given (Patient Refused): Zofran (Ondansetron) 4 mg IVP once; over 2 minutes sl2 15:42 Drug: Potassium Chloride 20 mEq Route: IV; Rate: calculated rate; Site: left upper arm; sl2 16:02 Follow up: Response: No adverse reaction sl2 17:07 Follow up: Response: No adverse reaction sl2 18:31 Follow up: Response: No adverse reaction; IV Status: Completed infusion; IV Intake: sl2 100ml 17:26 Drug: Dilaudid (HYDROmorphone) 2 mg Route: IVP; Site: left upper arm; sl2 18:31 Follow up: Response: No adverse reaction; Pain is decreased sl2 Intake: 18:31 IV: 100ml; Total: 100ml. sl2 Outcome: 14:37 Decision to Hospitalize by Provider. joanne 01/16 12:21 Patient left the ED. iw Signatures: Dispatcher [employer] EDMS Michael Chow PA PA jmm Williams, Irene, RN Lolis Aviles [facility] Nataliia Moody RN RN sl2 Evelyn Mendoza RN RN 5 Corrections: (The following items were deleted from the chart) 01/15 13:31 13:05 Promethazine 25 mg IVP in left upper arm sl2 sl2
--- NOTE | 2021-01-15 14:39 | EDPHYS ---
Physician Documentation [facility] Name: Sade Galdamez Age: 60 yrs Sex: Female : 1960 Arrival Date: 01/15/2021 Time: 12:11 Bed 18 Private MD: AMY Physician Jean Carlos Pinzon HPI: 01/15 12:27 This 60 yrs old Black Female presents to ER via EMS with complaints of Chest Pain. [facility] 12:27 The patient or guardian reports chest pain that is located primarily in the substernal [facility] area. Onset: 5 day(s) ago. The pain radiates to Associated signs and symptoms: Pertinent positives: abdominal pain. This is a 60-year-old female with a history of breast cancer, hypertension the presents emerged part with complaints of substernal chest pain which has been ongoing since recent discharge from the hospital. Patient attributes this to a low potassium and low magnesium level most likely from her chemotherapeutic drugs. Patient also has complaints of chronic lower abdominal pain she attributes to a tumor. Patient states the pain radiates to her back. Historical: - Allergies: 12:16 Iodine; [facility] - Home Meds: 12:16 Eliquis Oral [Active]; Hydromorphone Oral [Active]; Phenergan Oral [Active]; 5 - PMHx: 12:16 breast cancer; chemotherapy; Hypertension; Tumor to groin area; [facility] - PSHx: 12:16 ovi mastectomy; hysterectomy; [facility] - Immunization history:: Adult Immunizations unknown, Client reports receiving the 2nd dose of the Covid vaccine, Last tetanus immunization: unknown, . - Social history:: Smoking status: Patient denies any tobacco usage or history of. ROS: 12:27 Constitutional: Negative for fever, chills, and weight loss. jmm 12:27 Cardiovascular: Positive for chest pain. 12:27 Abdomen/GI: Positive for abdominal pain. 12:27 All other systems are negative. Exam: 12:27 Constitutional: This is a well developed, well nourished patient who is awake, alert, jmm and in no acute distress. Head/Face: atraumatic. Eyes: EOMI, no conjunctival erythema appreciated ENT: Moist Mucus Membranes Neck: Trachea midline, Supple Chest/axilla: Normal chest wall appearance and motion. Cardiovascular: Regular rate and rhythm. No edema appreciated Respiratory: Normal respirations, no respiratory distress appreciated 12:27 Skin: General appearance color normal MS/ Extremity: Moves all extremities, no obvious deformities appreciated, no edema noted to the lower extremities Neuro: Awake and alert, normal gait Psych: Behavior is normal, Mood is normal, Patient is cooperative and pleasant 12:27 Abdomen/GI: Inspection: abdomen appears normal, Bowel sounds: normal, Palpation: soft, mild abdominal tenderness, in the left lower quadrant. Vital Signs: 12:13 BP 150 / 81; Pulse 83; Resp 17; Pulse Ox 100% ; jh5 13:15 BP 149 / 86; Pulse 82; Resp 18; Temp 98.8(O); Pulse Ox 100% on R/A; sl2 14:00 BP 140 / 79; Pulse 89; Resp 18; Temp 98.6; Pulse Ox 99% ; sl2 15:00 BP 137 / 77; Pulse 80; Resp 18; Pulse Ox 99% on R/A; sl2 16:00 BP 146 / 81; Pulse 93; Resp 18; Pulse Ox 98% on R/A; sl2 17:00 BP 126 / 85; Pulse 81; Resp 18; Temp 98.4(O); Pulse Ox 99% on R/A; sl2 18:30 BP 131 / 70; Pulse 91; Resp 18; Temp 98.6(O); Pulse Ox 99% on R/A; sl2 MDM: 12:29 Patient medically screened. [facility] 14:36 Data reviewed: vital signs, nurses notes. ED course: I notified Dr. Coffey in regards to [facility] the admission. . 01/15 12:27 Order name: Basic Metabolic Panel; Complete Time: 13:48 [facility] 01/15 12:27 Order name: CBC with Diff [facility] 01/15 12:27 Order name: LFT's; Complete Time: 13:48 [facility] 01/15 12:27 Order name: Magnesium; Complete Time: 13:48 [facility] 01/15 12:27 Order name: NT PRO-BNP; Complete Time: 13:48 [facility] 01/15 12:27 Order name: PT-INR; Complete Time: 13:48 [facility] 01/15 12:27 Order name: Troponin (emerg Dept Use Only); Complete Time: 13:48 [facility] 01/15 12:41 Order name: Lipase; Complete Time: 13:48 [facility] 01/15 13:36 Order name: CBC Smear Scan [facility] 01/15 13:56 Order name: Phosphorus; Complete Time: 16:28 [facility] 01/15 16:34 Order name: Basic Metabolic Panel [facility] 01/15 16:34 Order name: Basic Metabolic Panel; Complete Time: 06:03 [facility] 01/15 16:34 Order name: CBC with Automated Diff [facility] 01/15 16:34 Order name: CBC with Automated Diff; Complete Time: 06:03 [facility] 01/15 12:27 Order name: XRAY Chest (1 view); Complete Time: 14:02 [facility] 01/15 16:34 Order name: Echo with Doppler [facility] 01/15 16:34 Order name: Lipid Profile [facility] 01/15 16:34 Order name: Lipid Profile [facility] 01/15 16:34 Order name: Troponin I [facility] 01/15 16:34 Order name: Troponin I; Complete Time: 06:03 [facility] 01/15 16:34 Order name: Troponin I; Complete Time: 06:03 [facility] 01/15 18:39 Order name: SARS-COV-2 RT PCR (Document "Date of Onset" if Symptomatic) 01/15 20:34 Order name: SARS-COV-2 RT PCR; Complete Time: 06:03 [facility] 01/16 00:36 Order name: Potassium; Complete Time: 06:03 [facility] 01/16 05:05 Order name: Lipid Profile; Complete Time: 06:03 [facility] 01/16 05:20 Order name: CBC Smear Scan; Complete Time: 06:03 [facility] 01/15 12:27 Order name: EKG; Complete Time: 12:28 [facility] 01/15 12:27 Order name: Cardiac monitoring; Complete Time: 13:19 [facility] 01/15 12:27 Order name: EKG - Nurse/Tech; Complete Time: 13:19 [facility] 01/15 12:27 Order name: IV Saline Lock; Complete Time: 13:19 [facility] 01/15 12:27 Order name: Labs collected and sent; Complete Time: 13:19 [facility] 01/15 12:27 Order name: O2 Per Protocol; Complete Time: 13:19 [facility] 01/15 12:27 Order name: O2 Sat Monitoring; Complete Time: 13:19 [facility] 01/15 16:34 Order name: CONS Physician Consult [facility] 01/15 16:34 Order name: Heart Healthy EDMS Administered Medications: 13:03 Drug: Promethazine 25 mg Route: IVP; Site: left upper arm; sl2 13:46 Follow up: Response: No adverse reaction; Nausea is decreased sl2 13:05 Drug: Dilaudid (HYDROmorphone) 1 mg Route: IVP; Site: left upper arm; sl2 13:46 Follow up: Response: No adverse reaction; Pain is decreased sl2 13:05 Drug: Dilaudid (HYDROmorphone) 1 mg Route: IVP; Site: left upper arm; sl2 13:46 Follow up: Response: No adverse reaction; Pain is decreased sl2 13:32 Not Given (Patient Refused): Zofran (Ondansetron) 4 mg IVP once; over 2 minutes sl2 15:42 Drug: Potassium Chloride 20 mEq Route: IV; Rate: calculated rate; Site: left upper arm; sl2 16:02 Follow up: Response: No adverse reaction sl2 17:07 Follow up: Response: No adverse reaction sl2 18:31 Follow up: Response: No adverse reaction; IV Status: Completed infusion; IV Intake: sl2 100ml 17:26 Drug: Dilaudid (HYDROmorphone) 2 mg Route: IVP; Site: left upper arm; sl2 18:31 Follow up: Response: No adverse reaction; Pain is decreased sl2 Disposition: 01/16 23:09 Co-signature as Attending Physician, Jean Carlos Pinzon MD I agree with the assessment and ruddy plan of care. Disposition Summary: 01/15/21 14:37 Hospitalization Ordered Hospitalization Status: Observation [facility] Provider: Scott Coffey Condition: Stable jmm Problem: new jmm Symptoms: have improved jmm Bed/Room Type: Standard [facility] Location: Telemetry/MedSurg (observation)(01/16/21 10:39) bd Room Assignment: 228(01/16/21 10:39) bd Diagnosis - Chest pain, unspecified jmm Forms: - Medication Reconciliation Form jmm - SBAR form jmm Signatures: Dispatcher [employer] EDMS Karuna Sherman Corey, MD MD cha Mickail, Joel, PA PA Nataliia Alvarez RN RN sl2 Evelyn Mendoza RN RN jh5 Corrections: (The following items were deleted from the chart) 01/15 17:15 14:37 Telemetry/MedSurg (observation) [facility] : 14:37 [facility] 01/16 10:39 01/15 17:15 [facility] ER [facility] 01/16 10:39 01/15 17:15 [facility]
[2021-01-15] MEDS ORDERED: KCL 20 MEQ/100 mL IVPB 20 MEQ/100 ML BAG IV ONE (16:25)
[2021-01-15] MEDS ORDERED: ACETAMINOPHEN 500 MG TAB PO PRN (16:31)
[2021-01-15] MEDS ORDERED: MORPHINE 4 MG/ML SYR IV PRN (16:31)
[2021-01-15] MEDS: METOPROLOL TAR 25 MG TAB PO SCH (18:00)
[2021-01-15] MEDS: ENOXAPARIN 40 MG/0.4 ML SQ SCH (18:00)
[2021-01-15] MEDS ORDERED: HYDROMORPHONE HCL 2 MG/ML inj ONE (18:16)
[2021-01-15] MEDS ORDERED: HYDROMORPHONE HCL 1 MG/ML INJ IV PRN (20:25)
[2021-01-15] MEDS: PROMETHAZINE INJ 25 MG/ML AMP IV PRN (20:33)
[2021-01-15 21:04] VITALS: BMI 39.2
[2021-01-15] MEDS ORDERED: HYDROMORPHONE HCL 1 MG/ML INJ IV ONE (22:02)
[2021-01-16 00:15] LABS: Troponin I < 0.02 ng/mL (0.0-0.045)
[2021-01-16 00:36] LABS: Potassium 3.2 mmol/L (3.5-5.1)
[2021-01-16] MEDS: PROMETHAZINE INJ 25 MG/ML AMP IV PRN ×6 (02:06→22:17)
[2021-01-16] MEDS: HYDROMORPHONE HCL 2 MG/ML inj IV PRN ×6 (02:06→22:15)
[2021-01-16] MEDS ORDERED: HYDROMORPHONE HCL 2 MG/ML inj ONE ×3 (02:58→11:02)
[2021-01-16] MEDS ORDERED: PROMETHAZINE INJ 25 MG/ML AMP ONE ×3 (03:01→11:03)
[2021-01-16 04:53] LABS: Basophils % 1.2 % (0-1.3); Hematocrit 24.1 % (36.0-45.0); Lymphocytes % 13.6 % (15.3-44.8); MPV 7.1 fL (7.6-11.3)
[2021-01-16 05:05] LABS: BUN Blood Urea Nitrogen 9 mg/dL (7-18); Bicarbonate 27 mmol/L (21-32); Glucose Level 98 mg/dL (74-106); HDL Cholesterol 49 mg/dL (40-60); LDL Cholesterol, Calculated 86 (<130); Potassium 3.2 mmol/L (3.5-5.1); Sodium Level 143 mmol/L (136-145); Troponin I < 0.02 ng/mL (0.0-0.045)
[2021-01-16 05:20] LABS: Anisocytosis 1+; Blood Morphology Comment NOTED (NOT SEEN); Hypochromasia 2+; Platelet Estimate ADEQ; White Blood Cell Scan OK (OK)
[2021-01-16] MEDS ORDERED: POTASSIUM 25 MEQ EFFERV TAB PO ONE (05:59)
[2021-01-16] MEDS ORDERED: POTASSIUM 25 MEQ EFFERV TAB ONE (07:04)
[2021-01-16] MEDS ORDERED: INFLUENZA VACCINE (for 6+ mo) 0.5 ML DOSE IMVAC ONE ×2 (08:00→10:28)
[2021-01-16] MEDS: METOPROLOL TAR 25 MG TAB PO SCH ×2 (09:04→20:32)
[2021-01-16] MEDS: ASPIRIN EC 81 MG TAB PO SCH (09:04)
[2021-01-16] MEDS: ENOXAPARIN 40 MG/0.4 ML SQ SCH (09:05)
[2021-01-16] MEDS ORDERED: ASPIRIN EC 81 MG TAB PO ONE (09:38)
[2021-01-16] MEDS ORDERED: ENOXAPARIN 40 MG/0.4 ML SQ ONE (09:39)
[2021-01-16] MEDS ORDERED: METOPROLOL TAR 25 MG TAB ONE (09:39)
--- NOTE | 2021-01-16 10:58 | P.HP ---
Certification for Inpatient Patient admitted to: Observation With expected LOS: <2 Midnights Patient will require the following post-hospital care: None Practitioner: I am a practitioner with admitting privileges, knowledge of patient current condition, hospital course, and medical plan of care. Services: Services provided to patient in accordance with Admission requirements found in Title 42 Section 412.3 of the Code of Federal Regulations Patient History Date of Service: 01/15/21 Reason for admission: Chest pain rule out acute coronary syndrome History of Present Illness: Patient is a 60-year-old female came to the hospital with chest pain. Patient with numerous admissions. Patient recent workup for chest pain. Patient had a stress test which revealed a large fixed defect involving the inferior wall from base to apex is believed to be large area of inferior wall scarring. However, echocardiogram was unremarkable. Patient was ruled out for acute coronary syndrome. 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 Patient prognosis is very poor. Patient comes in repeatedly for low potassium. Last admission a week ago with for chest pain. At this time we will rule her out for acute coronary syndrome. If this is negative then we will discharge. Allergies iopamidol [From [id number]] Allergy (Verified 01/03/21 00:13) Shortness of breath Home Medications: Folic Acid 1 mg PO DAILY 12/07/20 Gabapentin [Neurontin] 800 mg PO BID 12/07/20 Hydromorphone [Dilaudid*] 4 mg PO Q4HP PRN 12/07/20 Morphine Sulfate [Morphine Sulfate ER] 100 mg PO Q12H 12/07/20 OLANZapine [Olanzapine] 2.5 mg PO BEDTIME PRN PRN 12/07/20 Promethazine Tab [Phenergan*] 25 mg PO Q4H PRN 12/23/20 Docusate [Colace Cap*] 100 mg PO DAILY #30 cap 12/30/20 Metoprolol Tartrate [Lopressor*] 25 mg PO BID #60 tab 01/06/21 Amiloride HCl [Midamor*] 2 tab PO DAILY 30 Days #60 tablet 01/12/21 Apixaban [Eliquis] 5 mg PO BID tablet 01/12/21 Magnesium Chloride [Slow-Mag*] 64 mg PO DAILY 30 Days #30 tab 01/12/21 Potassium Oral Tab [Klor-Con 10 mEq Tab*] 20 meq PO BID 30 Days #120 tab 01/12/21 - Past Medical/Surgical History Has patient received pneumonia vaccine in the past: No Diabetic: No -: breast cancer -: liposarcoma -: HTN (resolved) -: mastectomy -: hysterectomy -: R hip replacement Psychosocial/ Personal History: Retired, lives at home by self - Family History Mother Medical History: Diabetes Father Medical History: Cancer Notes: lung cancer Brother Medical History: Hypertension, Diabetes Sister Medical History: Liver disease Notes: cirrhosis - Social History Smoking Status: Never smoker Alcohol use: No CD- Drugs: Yes Caffeine use: No Place of Residence: Home Review of Systems 10-point ROS is otherwise unremarkable Physical Examination - Vital Signs Temperature: 97.9 F Blood Pressure: 119/69 Pulse: 86 Respirations: 14 Pulse Ox (%): 98 - Physical Exam General: Alert, In no apparent distress, Oriented x3 HEENT: Atraumatic, PERRLA, Mucous membr. moist/pink, EOMI, Sclerae nonicteric Neck: Supple, 2+ carotid pulse no bruit, No LAD, Without JVD or thyroid abnormality Respiratory: Clear to auscultation bilaterally, Normal air movement Cardiovascular: Regular rate/rhythm, Normal S1 S2, No murmurs Gastrointestinal: Normal bowel sounds, Soft and benign, Non-distended, No tenderness Musculoskeletal: No clubbing, No swelling, No tenderness Integumentary: No rashes Neurological: Normal gait, Normal speech, Normal strength at 5/5 x4 extr, Normal tone, Sensation intact, Cranial nerves 3-12 intact, Normal affect Lymphatics: No axilla or inguinal lymphadenopathy - Studies Laboratory Data (last 24 hrs) 01/15/21 12:51: Phosphorus 2.9 01/15/21 12:51: Lipase 47 L 01/15/21 12:51: PT 13.2 H, INR 1.15 01/15/21 12:51: WBC 7.00, Hgb 8.4 L, Hct 25.6 L, Plt Count 353 01/15/21 12:51: Sodium 141, Potassium 3.1 L, BUN 6 L, Creatinine 0.78, Glucose 78, Magnesium 1.9, Total Bilirubin 0.5, AST 5 L, ALT 9 L, Alkaline Phosphatase 79 Assessment & Plan - Problems (Diagnosis) (1) Chest pain, rule out acute myocardial infarction Current Visit: Yes Status: Acute (2) 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 Serial troponins and EKG 2. Appreciate Cardiology consultation 3. Echocardiogram and stress test will be reviewed 4. Anti-platelet therapy, anti coagulation, beta-davide, statin, and O2 as needed 5. IV morphine for pain 6. Nitro p.r.n. 7. Monitor potassium level Discharge Plan: Home Plan to discharge in: Greater than 2 days - Advance Directives Does patient have a Living Will: No Does patient have a Durable POA for Healthcare: Yes - Code Status/Comfort Care Code Status Assessed: Yes Code Status: Full Code Critical Care: No Time Spent Managing PTS Care (In Minutes): 45
--- NOTE | 2021-01-16 11:49 | EKG ---
Test Date: 2021-01-15 Test Time: 12:34:11 Radio Intelligence Operator: Tamir MEASUREMENT RESULTS: Intervals: Rate: 78 MS: 160 QRSD: 92 QT: 370 QTc: 421 [place]: P: 39 MS: 160 QRS: -4 T: 3 INTERPRETIVE STATEMENTS: Normal sinus rhythm Nonspecific T wave abnormality Abnormal ECG Compared to ECG 01/10/2021 09:22:58 Possible ischemia no longer present T-wave abnormality still present Electronically Signed On 01-16-21 11:46:18 CDT by Antony Roca
[2021-01-16 21:40] VITALS: O2SAT 97
[2021-01-17] MEDS: HYDROMORPHONE HCL 2 MG/ML inj IV PRN ×4 (02:12→16:21)
[2021-01-17] MEDS: PROMETHAZINE INJ 25 MG/ML AMP IV PRN ×4 (02:13→16:23)
[2021-01-17 05:02] LABS: Potassium 3.8 mmol/L (3.5-5.1)
[2021-01-17] MEDS ORDERED: predniSONE 20 MG TAB PO ONE (06:43)
[2021-01-17] MEDS: ASPIRIN EC 81 MG TAB PO SCH ×2 (07:35→08:23)
[2021-01-17] MEDS: ENOXAPARIN 40 MG/0.4 ML SQ SCH (07:36)
[2021-01-17] MEDS: METOPROLOL TAR 25 MG TAB PO SCH ×2 (08:22→20:33)
[2021-01-17] MEDS ORDERED: KCL 20 MEQ/100 mL IVPB 20 MEQ/100 ML BAG IV SCH (09:00)
[2021-01-17] MEDS ORDERED: HEPA 1000U/500MLS 1,000 UNIT/500 ML BAG IV ONE (10:17)
[2021-01-17] MEDS ORDERED: MIDAZOLAM HCL 2 MG/2 ML INJ ONE ×3 (10:37→11:05)
[2021-01-17] MEDS ORDERED: FENTANYL CITR 100 MCG/2 ML ONE ×2 (10:37→11:11)
[2021-01-17] MEDS ORDERED: NITROGLYCERIN/D5W 0 MG/0 ML BTL IV ONE (10:38)
[2021-01-17] MEDS ORDERED: NITROGLYCERIN 100 MCG/ML SYR (for cath lab use only) IV ONE (10:38)
[2021-01-17] MEDS ORDERED: ATROPINE SULF 1 MG/10 ML SYR IV ONE (10:38)
[2021-01-17] MEDS ORDERED: NA CHLORIDE 0.9% 0 ML ONE (10:38)
[2021-01-17] MEDS ORDERED: NA CHLORIDE 0.9% 500 ML ONE (10:39)
[2021-01-17] MEDS ORDERED: METHYLPREDNISOLONE 125 MG INJ ONE (10:51)
[2021-01-17] MEDS ORDERED: LIDOCAINE 1% 20 ML MDV ONE (10:55)
[2021-01-17] MEDS ORDERED: FLUMAZENIL 0.1 MG/ML (5 mL VIAL) IV ONE (11:06)
--- NOTE | 2021-01-17 15:48 | OP ---
Date of Procedure: 01/17/2021 Surgeon: Antony Roca MD Shear Grinder Operator: Mr. Jameel Steele. She was brought to the systems testing laboratory technician on 01/17/2021, because of unstable angina symptoms and recent abnorma l stress test and multiple recurrent admissions for chest pain. The patient underwent left heart cat heterization with selective coronary artery angiography. Procedure In Detail: She was brought to the systems testing laboratory technician as an inpatient, prepped and draped in the rout ine sterile fashion. Given Versed and fentanyl for sedation. A 6-Kazakh sheath introduced in the [facility] common femoral artery using the Seldinger technique and 10 cc of Xylocaine. Angiography there wa s normal. StarClose was used to close the case. Iza catheters left and right were used to cannu late the left main and right main respectively. She was found to have perfectly normal coronaries. There were no complications. Blood Loss: 5 mL. Postoperative Diagnosis: Chest pain, atypical, positive stress test, false-positive, normal coronari es. Plan: Plan is for medical therapy. The patient will remain at bedrest for 4 hours after the procedu re. She can go home after that whenever it is okay with Dr. Coffey. Anesthesia: Total conscious sedation 45 minutes. NB/MODL Voice ID: [id number] Report ID: [id number]
[2021-01-17] MEDS ORDERED: OLANZapine 2.5 MG TAB PO PRN (17:43)
[2021-01-17] MEDS: MORPHINE SULFATE 100 MG PO SCH (17:45)
--- NOTE | 2021-01-17 17:50 | P.PN ---
Subjective Date of Service: 01/16/21 Patient having cardiac catheterization in the morning. Symptoms are stable. Review of Systems 10-point ROS is otherwise unremarkable Physical Examination - Vital Signs Temperature: 97.4 F Blood Pressure: 181/97 Pulse: 76 Respirations: 16 Pulse Ox (%): 97 - Physical Exam General: Alert, In no apparent distress, Oriented x3 Respiratory: Clear to auscultation bilaterally, Normal air movement Cardiovascular: Regular rate/rhythm, Normal S1 S2, No murmurs Gastrointestinal: Normal bowel sounds, Hypoactive, Soft and benign, Non- distended, No tenderness, No rebound, No guarding Musculoskeletal: No clubbing, No swelling, No tenderness Integumentary: No rashes Neurological: Sensation intact, Cranial nerves 3-12 intact - Studies Medications List Reviewed: Yes Assessment & Plan - Problems (Diagnosis) (1) Chest pain, rule out acute myocardial infarction Current Visit: Yes Status: Acute (2) 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 Serial troponins and EKG 2. Appreciate Cardiology consultation 3. Cardiac catheterization in the morning 4. Anti-platelet therapy, anti coagulation, beta-davide, statin, and O2 as needed 5. Continue with IV Dilaudid 6. Nitro p.r.n. 7. Monitor potassium level - Advance Directives Does patient have a Living Will: No Does patient have a Durable POA for Healthcare: Yes - Code Status/Comfort Care Code Status: Full Code
[2021-01-17] MEDS: POTASSIUM CL SA 10 MEQ TAB PO SCH (20:33)
[2021-01-17] MEDS: HYDROMORPHONE ORAL 4 MG TAB PO PRN (20:33)
[2021-01-17] MEDS: GABAPENTIN 400 MG CAP PO SCH (20:33)
[2021-01-17] MEDS: PROMETHAZINE 25 MG TABLET PO PRN (20:34)
[2021-01-17] MEDS ORDERED: METOPROLOL TAR 25 MG TAB PO SCH (21:00)
[2021-01-18 05:43] LABS: Potassium 4.1 mmol/L (3.5-5.1)
[2021-01-18] MEDS: MORPHINE SULFATE 100 MG PO SCH ×2 (05:45→16:37)
[2021-01-18] MEDS: APIXABAN 5 MG TABLET PO SCH ×2 (06:24→07:37)
[2021-01-18] MEDS: HYDROMORPHONE ORAL 4 MG TAB PO PRN ×2 (08:32→14:10)
[2021-01-18] MEDS: PROMETHAZINE 25 MG TABLET PO PRN ×2 (08:32→14:10)
[2021-01-18] MEDS: ASPIRIN EC 81 MG TAB PO SCH (08:33)
[2021-01-18] MEDS: METOPROLOL TAR 25 MG TAB PO SCH (08:34)
[2021-01-18] MEDS: POTASSIUM CL SA 10 MEQ TAB PO SCH (08:34)
[2021-01-18] MEDS: GABAPENTIN 400 MG CAP PO SCH (08:34)
[2021-01-18] MEDS: ENOXAPARIN 40 MG/0.4 ML SQ SCH ×2 (08:35→08:47)
[2021-01-18] MEDS ORDERED: AMILORIDE HCL 5 MG TABLET PO SCH (09:00)
[2021-01-18] MEDS ORDERED: DOCUSATE NA 100 MG CAP PO SCH (09:00)
[2021-01-18] MEDS ORDERED: MAGNESIUM CHLORIDE 64 MG TAB PO SCH (09:00)
[2021-01-18] MEDS ORDERED: FOLIC ACID 1 MG TABLET PO SCH (09:00)
[2021-01-18] MEDS ORDERED: ALTEPLASE 2 MG/VIAL IV ONE (11:00)
[2021-01-18] MEDS ORDERED: WATER FOR INJ,STERILE 10 ML ONE (11:17)
[2021-01-18 16:57] VITALS: BP 126/64; TEMP 97.4
--- NOTE | 2021-01-22 11:12 | CON ---
Reason For Consultation: Ms. Galdamez had been admitted to Dr. Coffey for chest pain. History Of Present Illness: Ms. Galdamez is a 60-year-old. She has a past medical history of breast cancer, status post mastectomy, has a history of sarcoma and hypertension. She has a history of hype rtension. Had come back to the hospital multiple times for chest pain the last of which in January, and in December, she underwent a stress test, which showed possible inferior infarct. There were no ischemia, but she comes back again with more chest pain. She has had a normal echocardiogram in the past. Her symptoms are suspicious for coronary artery disease and I think it was best to recommend a heart catheterization on her. Past Medical History: As stated above. Allergies: SHE IS ALLERGIC TO IOPAMIDOL. Review of Systems: Negative. Social History: Positive for DNR. Family History: Noncontributory. Medications: She takes at home from a cardiac standpoint only include metoprolol. Physical Examination: Vital Signs: Stable. Afebrile. HEENT: Negative. Neck: Supple. No bruit. Chest: Clear. Cardiac: Revealed a regular rhythm and rate. No murmurs, gallops, or rubs. Abdomen: Benign. Extremities: Revealed no clubbing, cyanosis, or edema. Diagnostic Data: Unremarkable except for what was mentioned earlier. Impression And Plan: This is a patient with hypertension, multiple and frequent episodes of chest pa in, slightly abnormal stress test. I think we need to do a heart catheterization to define her coron lexie anatomy once for all. She understood the risk and the benefit and she agreed to proceed. STEFANI/MALACHI Voice ID: [id number] Report ID: [id number]
== END 2021-01-18 18:30 | disposition home health service (06) | DRG 287 ==
LOC: ER 12:09 → ERHOLD 16:46 → 2ND 01-16 12:01 → OBSVTOIN 01-16 16:02
PROVIDERS: ADMIT Hospitalist; ATTEND Hospitalist
PROC: B201YZZ Plain Radiography of Multiple Coronary Arteries using Other Contrast (ICD-10-PCS; principal; 2021-01-17)
DX: R07.9 Chest pain, unspecified (principal); C79.89 Secondary malignant neoplasm of other specified sites; R94.39 Abnormal result of other cardiovascular function study; I10 Essential (primary) hypertension; Z85.3 Personal history of malignant neoplasm of breast; Z96.641 Presence of right artificial hip joint; Z20.822 Contact with and (suspected) exposure to COVID-19; Z23 Encounter for immunization
CPT/HCPCS: 36415; 71045; 80048; 80061; 80076; 83690; 83735; 83880; 84100; 84132; 84484; 85025; 85610; 90471; 93005; 93454; 96365; 96366; 96375; 99285; C1893; G0378; J0583; J1170; J1644; J1650; J2250; J2405; J2550; J2930; J2997; J3010; J3480; J7040; J7512; Q0169; Q2035; U0003

== ENCOUNTER 2021-01-21 18:01 | Observation (INO) | payer OTHER ==
[2021-01-21] MEDS ORDERED: PROMETHAZINE INJ 25 MG/ML AMP ONE (18:27)
[2021-01-21] MEDS ORDERED: HYDROMORPHONE HCL 2 MG/ML inj ONE ×2 (18:27→20:28)
[2021-01-21 19:02] LABS: Absolute Lymphocytes (CBC) 0.8 K/uL (0.7-4.9); Basophils % 0.6 % (0-1.3); Hematocrit 26.9 % (36.0-45.0); MPV 7.4 fL (7.6-11.3); RBC Red Blood Cell Count 3.34 M/uL (3.86-4.86)
[2021-01-21 19:03] LABS: Protime INR 1.19
[2021-01-21 19:12] LABS: ALT/SGPT 16 U/L (12-78); AST/SGOT 9 U/L (15-37); Albumin 3.2 g/dL (3.4-5.0); BUN Blood Urea Nitrogen 7 mg/dL (7-18); Bicarbonate 26 mmol/L (21-32); Glucose Level 81 mg/dL (74-106); Magnesium 1.8 mg/dL (1.8-2.4); Potassium 3.4 mmol/L (3.5-5.1); Sodium Level 142 mmol/L (136-145)
[2021-01-21 19:20] LABS: Alkaline Phosphatase 79 U/L (45-117); Bilirubin Direct 0.1 mg/dL (0-0.2); Bilirubin Total 0.4 mg/dL (0.2-1.0); NT PRO-BNP 423 pg/mL (<125); Protein, Total 7.3 g/dL (6.4-8.2); Troponin (Emerg Dept Use Only) < 0.02 ng/mL (0.0-0.045)
[2021-01-21 20:01] LABS: Blood Morphology Comment NOTED (NOT SEEN); Platelet Estimate ADEQ; White Blood Cell Scan OK (OK)
[2021-01-21 20:02] LABS: Anisocytosis 1+
--- NOTE | 2021-01-21 20:16 | RAD REPORT ---
EXAM DESCRIPTION: Claudia Single View01/21/2021 7:52 pm CLINICAL HISTORY: Chest pain COMPARISON: January 15, 2021 FINDINGS: The lungs appear clear of acute infiltrate. The heart is mildly enlarged. PICC line with its tip in the superior vena cava IMPRESSION: No acute abnormalities displayed
[2021-01-21] MEDS ORDERED: DIPHENHYDRAMINE 50 MG/ML VIAL ONE (20:27)
--- NOTE | 2021-01-21 21:18 | ER ---
Nurse's Notes [facility] Name: Sade Galdamez Age: 60 yrs Sex: Female : 1960 Arrival Date: 01/21/2021 Time: 18:04 Bed 19 Private MD: Diagnosis: Chest pain, unspecified Presentation: 01/21 18:12 Chief complaint: EMS states: Toned out for abdominal pain since May, feels worse jl7 today. Coronavirus screen: At this time, the client does not indicate any symptoms associated with coronavirus-19. Ebola Screen: No symptoms or risks identified at this time. Initial Sepsis Screen: Does the patient meet any 2 criteria? No. Patient's initial sepsis screen is negative. Does the patient have a suspected source of infection? No. Patient's initial sepsis screen is negative. Risk Assessment: Do you want to hurt yourself or someone else? Patient reports no desire to harm self or others. Onset of symptoms was May 2020. Care prior to arrival: None. 18:12 Method Of Arrival: EMS: [facility] jl7 18:12 Acuity: ABDIRIZAK 3 jl7 Triage Assessment: 18:16 General: Appears in no apparent distress. uncomfortable, Behavior is calm, cooperative, jl7 appropriate for age. Pain: Complains of pain in abdomen Pain currently is 10 out of 10 on a pain scale. Neuro: Level of Consciousness is awake, alert, obeys commands, Oriented to person, place, time, situation. Cardiovascular: Patient's skin is warm and dry. Respiratory: Airway is patent Respiratory effort is even, unlabored, Respiratory pattern is regular, symmetrical. Derm: Skin is pink, warm \\T\\ dry. Historical: - Allergies: 18:16 Iodine; jl7 - PMHx: 18:16 breast cancer; chemotherapy; Hypertension; Tumor to groin area; jl7 - PSHx: 18:16 ovi mastectomy; hysterectomy; jl7 - Immunization history:: Adult Immunizations up to date, Client reports receiving the 2nd dose of the Covid vaccine, Moderna. - Social history:: Smoking status: Patient denies any tobacco usage or history of. Screenin:18 Abuse screen: Denies threats or abuse. Denies injuries from another. Nutritional jl7 screening: No deficits noted. Tuberculosis screening: No symptoms or risk factors identified. 20:30 Fall Risk Fall in past 12 months (25 points). cc4 Assessment: 18:25 General: Appears uncomfortable, obese, well developed, Behavior is calm, cooperative, sl2 appropriate for age, Reports left chest and left lower quadrant abdominal pain. 18:25 Pain: Complains of pain in chest and abdomen. Neuro: No deficits noted. Level of sl2 Consciousness is awake, alert, obeys commands, Oriented to person, place, time, situation, Appropriate for age Semiconductor Processing Technician are equal bilaterally Moves all extremities. Full function Reports. Cardiovascular: No deficits noted. Reports None chest pain, Denies diaphoresis, lightheadedness, palpitations, shortness of breath, syncope, Capillary refill < 3 seconds Rhythm is regular. Respiratory: No deficits noted. Breath sounds are clear bilaterally. GI: Abdomen is round obese, Bowel sounds present X 4 quads. Abd is soft and non tender Reports lower abdominal pain, Patient currently denies constipation, diarrhea. : No deficits noted. No signs and/or symptoms were reported regarding the genitourinary system. EENT: No deficits noted. No signs and/or symptoms were reported regarding the EENT system. Derm: No deficits noted. No signs and/or symptoms reported regarding the dermatologic system. Musculoskeletal: No deficits noted. No signs and/or symptoms reported regarding the musculoskeletal system. 20:30 Reassessment: c/o left groin pain 10/10 on pain scale; medicated as ordered; VSS. cc4 Vital Signs: 18:12 BP 156 / 95; Pulse 95; Resp 17; Temp 98.6; Pulse Ox 100% ; Weight 111.13 kg; Pain 10/10;jl7 18:41 BP 168 / 107; Pulse 102; Resp 22; Pulse Ox 97% on R/A; mh5 20:30 BP 134 / 82; Pulse 95; Resp 20; Temp 97.9; Pulse Ox 97% on R/A; cc4 21:31 BP 135 / 87; Pulse 86; Resp 20; Pulse Ox 98% on R/A; cc4 22:30 BP 134 / 86; Pulse 75; Resp 20; Pulse Ox 99% on R/A; cc4 23:00 BP 155 / 80; Pulse 83; Resp 20; Temp 97.9(O); Pulse Ox 96% on R/A; cc4 ED Course: 18:04 Patient arrived in ED. mh5 18:06 Patient has correct armband on for positive identification. Placed in gown. Bed in low mh5 position. Call light in reach. Side rails up X2. Warm blanket given. bus driver/monitor on. Pulse ox on. NIBP on. 18:09 Michael Chow PA is PHCP. m 18:09 Najma Garcia MD is Attending Physician. jmm 18:16 Triage completed. jl7 18:16 Arm band placed on right wrist. jl7 18:24 EKG done, by ED staff, reviewed by Michael SEVILLA. mh5 18:25 Nataliia Moody, RN is Primary Nurse. sl2 18:25 Flushed left PICC line. sl2 19:21 Primary Nurse role handed off by Nataliia Moody, SILAS tt3 19:52 XRAY Chest (1 view) In Process Unspecified. EDMS 20:18 Mariana Joshi, SILAS is Primary Nurse. cc4 21:00 COVID-19 SARS RT PCR (Document "Date of Onset" if Symptomatic) Sent. cc4 21:17 Alejandro Mayo DO is Hospitalizing Provider. [facility] 23:45 No provider procedures requiring assistance completed. cc4 23:45 Patient admitted, IV remains in place. cc4 Administered Medications: 18:35 Drug: Promethazine 12.5 mg Route: IVP; Site: left upper arm; sl2 18:55 Follow up: Response: No adverse reaction; Pain is decreased sl2 18:39 Drug: Dilaudid (HYDROmorphone) 2 mg Route: IVP; Site: left upper arm; sl2 18:56 Follow up: Response: No adverse reaction; Pain is decreased sl2 20:30 Drug: Dilaudid (HYDROmorphone) 2 mg Route: IVP; Site: PICC; cc4 22:00 Follow up: Response: No adverse reaction; Pain is decreased cc4 20:30 Drug: diphenhydrAMINE 25 mg Route: IVP; Site: PICC; cc4 22:00 Follow up: Response: No adverse reaction; Pain is decreased cc4 22:48 Drug: Aspirin Chewable Tablet 324 mg Route: PO; cc4 23:00 Follow up: Response: No adverse reaction cc4 Outcome: 21:17 Decision to Hospitalize by Provider. joanne 23:45 Admitted to Med/surg accompanied by tech, room 230, with chart, Report called to Jet cc4 23:45 Condition: stable 23:45 Instructed on the need for admit, Demonstrated understanding of instructions. 23:49 Patient left the ED. cc4 Signatures: Dispatcher [employer] EDMS Michael Chow PA PA jmm Martinez, Maria 5 Ramon Severino, RN RN jl7 Dany Vargas 3 Mariana Joshi, SILAS RN cc4 Nataliia Moody RN RN sl2
--- NOTE | 2021-01-21 21:19 | EDPHYS ---
Physician Documentation [facility] Name: Sade Galdamez Age: 60 yrs Sex: Female : 1960 Arrival Date: 01/21/2021 Time: 18:04 Bed 19 Private MD: ED Physician Najma Garcia HPI: 01/21 21:13 This 60 yrs old Black Female presents to ER via EMS with complaints of chest pain. jmm 21:13 The patient or guardian reports chest pain that is located primarily in the substernal [facility] area. Onset: today. The pain does not radiate. Associated signs and symptoms: Pertinent positives: abdominal pain. The chest pain is described as aching, sharp. Duration: The patient or guardian reports a single episode, that is still ongoing. Modifying factors: The symptoms are alleviated by nothing. the symptoms are aggravated by nothing. Patient complains of ongoing chest pain which she attributes to low potassium. Recently discharged from inpatient admission for similar pain. . Historical: - Allergies: 18:16 Iodine; jl7 - PMHx: 18:16 breast cancer; chemotherapy; Hypertension; Tumor to groin area; jl7 - PSHx: 18:16 ovi mastectomy; hysterectomy; jl7 - Immunization history:: Adult Immunizations up to date, Client reports receiving the 2nd dose of the Covid vaccine, Moderna. - Social history:: Smoking status: Patient denies any tobacco usage or history of. ROS: 21:13 Constitutional: Negative for fever, chills, and weight loss. jmm 21:13 Cardiovascular: Positive for chest pain. 21:13 All other systems are negative. Exam: 21:13 Constitutional: This is a well developed, well nourished patient who is awake, alert, jmm and in no acute distress. Head/Face: atraumatic. Eyes: EOMI, no conjunctival erythema appreciated ENT: Moist Mucus Membranes Neck: Trachea midline, Supple Chest/axilla: Normal chest wall appearance and motion. Cardiovascular: Regular rate and rhythm. No edema appreciated Respiratory: Normal respirations, no respiratory distress appreciated Abdomen/GI: Non distended, soft Back: Normal ROM Skin: General appearance color normal MS/ Extremity: Moves all extremities, no obvious deformities appreciated, no edema noted to the lower extremities Neuro: Awake and alert, normal gait Psych: Behavior is normal, Mood is normal, Patient is cooperative and pleasant Vital Signs: 18:12 BP 156 / 95; Pulse 95; Resp 17; Temp 98.6; Pulse Ox 100% ; Weight 111.13 kg; Pain 10/10;jl7 18:41 BP 168 / 107; Pulse 102; Resp 22; Pulse Ox 97% on R/A; mh5 20:30 BP 134 / 82; Pulse 95; Resp 20; Temp 97.9; Pulse Ox 97% on R/A; cc4 21:31 BP 135 / 87; Pulse 86; Resp 20; Pulse Ox 98% on R/A; cc4 22:30 BP 134 / 86; Pulse 75; Resp 20; Pulse Ox 99% on R/A; cc4 23:00 BP 155 / 80; Pulse 83; Resp 20; Temp 97.9(O); Pulse Ox 96% on R/A; cc4 MDM: 18:13 Patient medically screened. [facility] 21:15 The patient was given aspirin in the Emergency Department. Data reviewed: vital signs, [facility] nurses notes. ED course: I discussed the patient with Anish Lim whom accepted the patient to Dr. Mayo service. . 01/21 18:13 Order name: Basic Metabolic Panel; Complete Time: 19:21 [facility] 01/21 18:13 Order name: CBC with Diff; Complete Time: 20:07 [facility] 01/21 18:13 Order name: LFT's; Complete Time: 19:21 [facility] 01/21 18:13 Order name: Magnesium; Complete Time: 19:21 [facility] 01/21 18:13 Order name: NT PRO-BNP; Complete Time: 19:21 [facility] 01/21 18:13 Order name: PT-INR; Complete Time: 19:13 [facility] 01/21 18:13 Order name: Troponin (emerg Dept Use Only); Complete Time: 19:21 [facility] 01/21 18:13 Order name: XRAY Chest (1 view); Complete Time: 20:20 [facility] 01/21 19:06 Order name: CBC Smear Scan; Complete Time: 20:07 [facility] 01/21 20:28 Order name: COVID-19 SARS RT PCR (Document "Date of Onset" if Symptomatic); Complete tt3 Time: 21:54 01/21 18:13 Order name: EKG; Complete Time: 18:15 [facility] 01/21 18:13 Order name: Cardiac monitoring; Complete Time: 18:24 [facility] 01/21 18:13 Order name: EKG - Nurse/Tech; Complete Time: 18:24 [facility] 01/21 18:13 Order name: IV Saline Lock; Complete Time: 18:55 [facility] 01/21 18:13 Order name: Labs collected and sent; Complete Time: 18:55 [facility] 01/21 18:13 Order name: O2 Per Protocol; Complete Time: 18:24 [facility] 01/21 18:13 Order name: O2 Sat Monitoring; Complete Time: 18:24 [facility] Administered Medications: 18:35 Drug: Promethazine 12.5 mg Route: IVP; Site: left upper arm; sl2 18:55 Follow up: Response: No adverse reaction; Pain is decreased sl2 18:39 Drug: Dilaudid (HYDROmorphone) 2 mg Route: IVP; Site: left upper arm; sl2 18:56 Follow up: Response: No adverse reaction; Pain is decreased sl2 20:30 Drug: Dilaudid (HYDROmorphone) 2 mg Route: IVP; Site: PICC; cc4 22:00 Follow up: Response: No adverse reaction; Pain is decreased cc4 20:30 Drug: diphenhydrAMINE 25 mg Route: IVP; Site: PICC; cc4 22:00 Follow up: Response: No adverse reaction; Pain is decreased cc4 22:48 Drug: Aspirin Chewable Tablet 324 mg Route: PO; cc4 23:00 Follow up: Response: No adverse reaction cc4 Disposition Summary: 01/21/21 21:17 Hospitalization Ordered Hospitalization Status: Observation [facility] Provider: Alejandro Mayo [facility] Location: Telemetry/MedSurg (observation) [facility] Condition: Stable [facility] Problem: new [facility] Symptoms: are unchanged [facility] Bed/Room Type: Standard [facility] Room Assignment: 230(01/21/21 22:50) mw Diagnosis - Chest pain, unspecified [facility] Forms: - Medication Reconciliation Form [facility] - SBAR form [facility] Addendum: 01/23/2021 08:38 Co-signature as Attending Physician, Najma Garcia MD I agree with the assessment and s p3 plan of care. Signatures: Dispatcher [facility] Brianne Garay RN RN mw Michael Chow PA PA jmm Leal, Jahala, RN RN jl7 Najma Garcia MD MD sp3 Mariana Joshi RN RN cc4 Nataliia Moody RN RN sl2 Corrections: (The following items were deleted from the chart) 01/21 22:50 21:17 joanne manjarrez
[2021-01-21] MEDS ORDERED: ASPIRIN 81 MG CHEWABLE TABLET ONE (22:42)
--- NOTE | 2021-01-21 23:06 | P.HP ---
Certification for Inpatient Patient admitted to: Observation With expected LOS: <2 Midnights Patient will require the following post-hospital care: None Practitioner: I am a practitioner with admitting privileges, knowledge of patient current condition, hospital course, and medical plan of care. Services: Services provided to patient in accordance with Admission requirements found in Title 42 Section 412.3 of the Code of Federal Regulations Patient History Date of Service: 01/21/21 Reason for admission: intractable pain History of Present Illness: Ms. 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 She tried to wait out the pain but it continued to worsen. Pain worse with movement, mildly improved with PO dilaudid and morphine and massage. Usually her pain has been attributed to hypokalemia and hypomagnesemia, K+ 3.4 today and Mg 1.8. She had a heart catheterization completed last week which showed normal coronary arteries with no indication for intervention. Her last chemotherapy session was 4 weeks ago and she does not have her next [id number] scheduled. Goal for chemo is to reduce size of the tumor and then hopefully excise it. She says her pain began with the initiation of the chemo. There was consideration to start fentanyl patches at last discharge but patient is afraid that it will be dangerous for her to take and no one is around to monitor in her sleep. She lives alone and family lives 3-4 hours away. She feels that everyone is too busy to care for her. Allergies iopamidol [From Isovue-128] Allergy (Verified 01/03/21 00:13) Shortness of breath Home Medications: Folic Acid 1 mg PO DAILY 12/07/20 Gabapentin [Neurontin] 800 mg PO BID 12/07/20 Hydromorphone [Dilaudid*] 4 mg PO Q4HP PRN 12/07/20 Morphine Sulfate [Morphine Sulfate ER] 100 mg PO Q12H 12/07/20 OLANZapine [Olanzapine] 2.5 mg PO BEDTIME PRN PRN 12/07/20 Promethazine Tab [Phenergan*] 25 mg PO Q4H PRN 12/23/20 Docusate [Colace Cap*] 100 mg PO DAILY #30 cap 12/30/20 Metoprolol Tartrate [Lopressor*] 25 mg PO BID #60 tab 01/06/21 Amiloride HCl [Midamor*] 2 tab PO DAILY 30 Days #60 tablet 01/12/21 Apixaban [Eliquis] 5 mg PO BID tablet 01/12/21 Magnesium Chloride [Slow-Mag*] 64 mg PO DAILY 30 Days #30 tab 01/12/21 Potassium Oral Tab [Klor-Con 10 mEq Tab*] 20 meq PO BID 30 Days #120 tab 01/12/21 - Past Medical/Surgical History Diabetic: No -: breast cancer -: liposarcoma -: HTN (resolved) -: mastectomy -: hysterectomy -: R hip replacement Psychosocial/ Personal History: Retired, lives at home by self - Family History Mother -: Diabetes Father -: Cancer Notes: lung cancer Brother -: Hypertension, Diabetes Sister -: Liver disease Notes: cirrhosis - Social History Smoking Status: Never smoker Alcohol use: No CD- Drugs: Yes Caffeine use: No Place of Residence: Home Review of Systems 10-point ROS is otherwise unremarkable Cardiovascular: Chest Pain Gastrointestinal: Abdominal Pain Musculoskeletal: Back Pain Physical Examination - Physical Exam General: Alert, In no apparent distress HEENT: Atraumatic, PERRLA, Mucous membr. moist/pink, EOMI, Sclerae nonicteric Neck: Supple, 2+ carotid pulse no bruit, No LAD, Without JVD or thyroid abnormality Respiratory: Clear to auscultation bilaterally, Normal air movement Cardiovascular: Regular rate/rhythm, Normal S1 S2 Gastrointestinal: Normal bowel sounds, No tenderness Musculoskeletal: Tenderness Integumentary: Tenderness/swelling (swelling and lymphedema of left elg ) Neurological: Normal speech, Normal strength at 5/5 x4 extr, Normal tone, Sensation intact, Normal affect Lymphatics: No axilla or inguinal lymphadenopathy - Studies Laboratory Data (last 24 hrs) 01/21/21 18:35: PT 13.7 H, INR 1.19 01/21/21 18:35: WBC 7.60, Hgb 8.8 L, Hct 26.9 L, Plt Count 245 01/21/21 18:35: Sodium 142, Potassium 3.4 L, BUN 7, Creatinine 0.77, Glucose 81, Magnesium 1.8, Total Bilirubin 0.4, AST 9 L, ALT 16, Alkaline Phosphatase 79 Assessment and Plan - Problems (Diagnosis) (1) Anemia Current Visit: No Status: Chronic Qualifiers: Anemia type: unspecified type Qualified Code(s): D64.9 - Anemia, unspecified (2) Cancer related pain Current Visit: No Status: Acute (3) Insufficient social support Current Visit: No Status: Chronic (4) Liposarcoma Current Visit: No Status: Chronic - Plan continue IV dilaudid and phenergan as needed potassium and magnesium replacement hydralazine PRN For BP spikes continue home eliquis reconcile and continue home medications social work consulted, patient may benefit from home health need to coordinate with oncology to modify home pain management regimen to prevent readmisison Discharge Plan: Home Plan to discharge in: 24 Hours - Advance Directives Does patient have a Living Will: No Does patient have a Durable POA for Healthcare: Yes - Code Status/Comfort Care Code Status Assessed: Yes (full code ) Critical Care: No Time Spent Managing Pts Care (In Minutes): 70
[2021-01-21] MEDS ORDERED: POTASSIUM 25 MEQ EFFERV TAB PO ONE (23:27)
[2021-01-21] MEDS ORDERED: ACETAMINOPHEN 500 MG TAB PO PRN (23:27)
[2021-01-21] MEDS ORDERED: HYDRALAZINE HCL 20 MG/ML VIAL IV PRN (23:27)
[2021-01-22] MEDS: HYDROMORPHONE HCL 2 MG/ML inj IV PRN ×5 (01:01→17:46)
[2021-01-22] MEDS: APIXABAN 5 MG TABLET PO SCH ×2 (01:02→09:29)
[2021-01-22] MEDS: PROMETHAZINE INJ 25 MG/ML AMP IV PRN ×5 (01:03→17:47)
[2021-01-22 01:32] VITALS: BMI 40.7
[2021-01-22 06:09] LABS: Basophils % 1.1 % (0-1.3); Hematocrit 24.5 % (36.0-45.0); Lymphocytes % 13.4 % (15.3-44.8); MPV 7.5 fL (7.6-11.3); RBC Red Blood Cell Count 3.04 M/uL (3.86-4.86)
[2021-01-22 06:15] LABS: ALT/SGPT 13 U/L (12-78); AST/SGOT 12 U/L (15-37); Albumin 2.8 g/dL (3.4-5.0); Alkaline Phosphatase 77 U/L (45-117); BUN Blood Urea Nitrogen 9 mg/dL (7-18); Bicarbonate 26 mmol/L (21-32); Bilirubin Total 0.3 mg/dL (0.2-1.0); Glucose Level 97 mg/dL (74-106); Phosphorus 3.3 mg/dL (2.5-4.9); Potassium 3.4 mmol/L (3.5-5.1); Protein, Total 6.7 g/dL (6.4-8.2); Sodium Level 142 mmol/L (136-145); Troponin I < 0.02 ng/mL (0.0-0.045)
[2021-01-22 06:45] LABS: Blood Morphology Comment NOT SEEN (NOT SEEN); Platelet Estimate ADEQ; White Blood Cell Scan OK (OK)
[2021-01-22] MEDS ORDERED: PNEUMOCOCCAL VACCINE 0.5 ML IMVAC ONE (08:00)
[2021-01-22 08:50] VITALS: O2SAT 95
--- NOTE | 2021-01-22 08:59 | P.DS ---
Admission Date: 01/21/21 Discharge Date: 01/22/21 Primary Care Provider: Oncology-Dr. Beverly Disposition: HOSPICE-HOME Discharge Condition: GOOD Reason for Admission: intractable pain Consultations: none Procedures: COVID: Negative CXR: COMPARISON: January 15, 2021 FINDINGS: The lungs appear clear of acute infiltrate. The heart is mildly enlarged. PICC line with its tip in the superior vena cava IMPRESSION: No acute abnormalities displayed Medical Problem List: Intractable Pain related to Liposarcoma with chronic pain HTN Chronic hypokalemia, hypomagnesia with salt wasting Hx of DVT on chronic anticoagulation Chronic constipation Brief History of Present Illness: 60 yo -[place] female with history of liposarcoma, hypertension chronic hypokalemia/hypomagnesia, and history of DVT on anticoagulation therapy. Patient presented with intractable chest, back and abdominal pain. Patient has been taking medication for pain. She has had to limit her pain medication since she lives by herself. She was recently hospitalized for chest pain last week. Heart catheterization at that time showed normal coronaries. No further intervention was required. Her last chemotherapy was about 4 weeks ago. Her condition is not curable. She has been trying to get palliative care. Patient was admitted for observation and treatment. Hospital Course: Patient presented with intractable pain related to her liposarcoma. Patient with poor support at home. Patient was admitted for observation. Pain better controlled at this time. Patient has been taking morphine extended release in short acting Dilaudid at home. While in the hospital, case discussed in detail with her oncologistDr. Beverly. Patient has noncurative liposarcoma. They have been treating this with chemotherapy for palliative care. After long discussion with oncology and with the patient, patient agreeable to hospice at home to better control her pain. Advanced directives were readdressed with the patient. Patient is DO NOT RESUSCITATE. Social work was consulted to help arrange for hospice at home. At discharge patient will continue with hospice at home. At discharge patient may continue with morphine SR 100 mg 1 pill twice daily. Patient will continue with Dilaudid 4 mg every 4 hours as needed for pain. Patient may also continue with Neurontin 800 mg 1 pill twice daily. Patient will continue with folic acid 1 mg daily. Further adjustment in medication can be done by hospice or her oncologist. Patient with with hypertension. At discharge patient will continue with metoprolol 25 mg 1 pill twice daily. Patient recently evaluated last week for chest pain. She had a heart catheterization done at that time which was unremarkable. No intervention was required. Recommend to maintain blood pressure less than 130/80. Further adjustment can be done by her PCP. Patient with chronic hypokalemia and hypomagnesia. This was likely related to her chemotherapy and salt wasting. This seems to be controlled. At discharge she will continue with her medications including amiloride 10 mg daily, Slow-Mag 64 mg daily, and Klor-Con 20 mEq twice daily. Recommend to recheck labCMP within 1 week. Patient may follow-up with nephrology in 1 to 2 weeks to follow- up his hospitalization. Patient with history of DVT in the past. Overall stable. Patient on chronic anticoagulation therapy. At discharge she will continue with Eliquis 5 mg 1 pill twice daily. Patient may continue with her other medications including olanzapine 2.5 mg at bedtime. She may also continue with docusate 100 mg daily for constipation. Vital Signs/Physical Exam: Temp Pulse Resp BP Pulse Ox 97.6 F 74 16 134/70 97 01/22/21 08:00 01/22/21 08:00 01/22/21 08:00 01/22/21 08:00 01/22/21 08:00 General: Alert, In no apparent distress, Oriented x3, Cooperative HEENT: Atraumatic Neck: Supple Respiratory: Clear to auscultation bilaterally, Normal air movement Cardiovascular: Normal pulses, Regular rate/rhythm Gastrointestinal: Normal bowel sounds, No tenderness, No masses, No rebound, No guarding Integumentary: No erythema, No warmth, No cyanosis Neurological: Normal speech, Normal strength at 5/5 x4 extr, Normal tone, Normal affect Laboratory Data at Discharge: WBC 7.20 K/uL (4.3-10.9) 01/22/21 05:35 Hgb 8.1 g/dL (12.0-15.0) L 01/22/21 05:35 Hct 24.5 % (36.0-45.0) L 01/22/21 05:35 Plt Count 207 K/uL (152-406) 01/22/21 05:35 PT 13.7 SECONDS (9.5-12.5) H 01/21/21 18:35 INR 1.19 01/21/21 18:35 Sodium 142 mmol/L (136-145) 01/22/21 05:35 Potassium 3.4 mmol/L (3.5-5.1) L 01/22/21 05:35 BUN 9 mg/dL (7-18) 01/22/21 05:35 Creatinine 0.88 mg/dL (0.55-1.3) 01/22/21 05:35 Glucose 97 mg/dL (74-106) 01/22/21 05:35 Phosphorus 3.3 mg/dL (2.5-4.9) 01/22/21 05:35 Magnesium 2.0 mg/dL (1.8-2.4) 01/22/21 05:35 Total Bilirubin 0.3 mg/dL (0.2-1.0) 01/22/21 05:35 AST 12 U/L (15-37) L 01/22/21 05:35 ALT 13 U/L (12-78) 01/22/21 05:35 Alkaline Phosphatase 77 U/L (45-117) 01/22/21 05:35 Troponin I < 0.02 ng/mL (0.0-0.045) 01/22/21 05:35 Home Medications: Folic Acid 1 mg PO DAILY 12/07/20 Gabapentin [Neurontin] 800 mg PO BID 12/07/20 Hydromorphone [Dilaudid*] 4 mg PO Q4HP PRN 12/07/20 Morphine Sulfate [Morphine Sulfate ER] 100 mg PO Q12H 12/07/20 OLANZapine [Olanzapine] 2.5 mg PO BEDTIME PRN PRN 12/07/20 Promethazine Tab [Phenergan*] 25 mg PO Q4H PRN 12/23/20 Docusate [Colace Cap*] 100 mg PO DAILY #30 cap 12/30/20 Metoprolol Tartrate [Lopressor*] 25 mg PO BID #60 tab 01/06/21 Amiloride HCl [Midamor*] 2 tab PO DAILY 30 Days #60 tablet 01/12/21 Apixaban [Eliquis] 5 mg PO BID tablet 01/12/21 Magnesium Chloride [Slow-Mag*] 64 mg PO DAILY 30 Days #30 tab 01/12/21 Potassium Oral Tab [Klor-Con 10 mEq Tab*] 20 meq PO BID 30 Days #120 tab 01/12/21 Physician Discharge Instructions: Patient presented with intractable pain related to her liposarcoma. Patient with poor support at home. Patient was admitted for observation. Pain better controlled at this time. Patient has been taking morphine extended release in short acting Dilaudid at home. While in the hospital, case discussed in detail with her oncologistDr. Beverly. Patient has noncurative liposarcoma. They have been treating this with chemotherapy for palliative care. After long discussion with oncology and with the patient, patient agreeable to hospice at home to better control her pain. Advanced directives were readdressed with the patient. Patient is DO NOT RESUSCITATE. Social work was consulted to help arrange for hospice at home. At discharge patient will continue with hospice at home. At discharge patient may continue with morphine SR 100 mg 1 pill twice daily. Patient will continue with Dilaudid 4 mg every 4 hours as needed for pain. P atient may also continue with Neurontin 800 mg 1 pill twice daily. Patient will continue with folic acid 1 mg daily. Further adjustment in medication can be done by hospice or her oncologist. Patient with with hypertension. At discharge patient will continue with metoprolol 25 mg 1 pill twice daily. Patient recently evaluated last week for chest pain. She had a heart catheterization done at that time which was unremarkable. No intervention was required. Recommend to maintain blood pressure less than 130/80. Further adjustment can be done by her PCP. Patient with chronic hypokalemia and hypomagnesia. This was likely related to her chemotherapy and salt wasting. This seems to be controlled. At discharge she will continue with her medications including amiloride 10 mg daily, Slow-Mag 64 mg daily, and Klor-Con 20 mEq twice daily. Recommend to recheck labCMP within 1 week. Patient may follow-up with nephrology in 1 to 2 weeks to follow- up his hospitalization. Patient with history of DVT in the past. Overall stable. Patient on chronic anticoagulation therapy. At discharge she will continue with Eliquis 5 mg 1 pill twice daily. Patient may continue with her other medications including olanzapine 2.5 mg at bedtime. She may also continue with docusate 100 mg daily for constipation. Diet: AHA Activity: Fall precautions Followup: OOT,OOT [Primary Care Provider] - Time spent managing pt's care (in minutes): 55
[2021-01-22] MEDS ORDERED: POTASSIUM 25 MEQ EFFERV TAB PO ONE (09:00)
[2021-01-22 16:15] VITALS: BP 130/67; TEMP 98.1
--- NOTE | 2021-01-22 18:24 | EKG ---
Test Date: 2021-01-22 Test Time: 10:37:28 Management Intern: DANIELA MEASUREMENT RESULTS: Intervals: Rate: 89 OK: 148 QRSD: 92 QT: 382 QTc: 464 [place]: P: 56 OK: 148 QRS: -7 T: 155 INTERPRETIVE STATEMENTS: Normal sinus rhythm T wave abnormality, consider anterolateral ischemia Prolonged QT Abnormal ECG Compared to ECG 01/15/2021 12:34:11 Possible ischemia now present Prolonged QT interval now present T-wave abnormality still present Electronically Signed On 01-22-21 18:23:22 SALES AND MARKETING INTERN by Antony Roca
--- NOTE | 2021-01-22 18:25 | EKG ---
Test Date: 2021-01-21 Test Time: 18:30:11 Final Cigar And Box Examiner: FRAN MEASUREMENT RESULTS: Intervals: Rate: 85 TN: 138 QRSD: 90 QT: 338 QTc: 402 [place]: P: 36 TN: 138 QRS: -6 T: 162 INTERPRETIVE STATEMENTS: Normal sinus rhythm ST & T wave abnormality, consider lateral ischemia Abnormal ECG Compared to ECG 01/15/2021 12:34:11 ST (T wave) deviation now present Possible ischemia now present T-wave abnormality no longer present Electronically Signed On 01-22-21 18:23:37 SMALL PIECE CUTTER by Antony Roca
--- OUTSIDE RECORDS SUMMARY | 2021-01-27 15:59 | XMS REPORT | Continuity of Care Document ---
:1960 Author Organization [facility] t Address [address] [place] [address] Care Team Providers Name Role Phone KALINA LAWSON Primary Care Physician Unavailable Nile TEJADA Attending Clinician Unavailable SYSTEM, NOT IN Attending Clinician Unavailable Jasmina GARCIA Attending Clinician Unavailable MAYE Attending Clinician Unavailable STEFANO Attending Clinician Unavailable SCOTT Attending Clinician Unavailable JAVI BRAY Attending Clinician Unavailable DIONTE Attending Clinician Unavailable LEONOR Attending Clinician Unavailable JUAN Attending Clinician Unavailable Nile Tejada MD Attending Clinician Boom Carlin MD Attending Clinician Caridad Escalante MD Attending Clinician Isabelle Ramos MD Attending Clinician [phone] Lazaro LYNN Attending Clinician ANA PAULA TAVARES Attending Clinician Unavailable STEVE GARCIA Attending Clinician Unavailable Nile TEJADA Admitting Clinician Unavailable JAVI BRAY Admitting Clinician Unavailable LEONOR Admitting Clinician Unavailable BOOM CARLIN Admitting Clinician Unavailable NARGIS Admitting Clinician Unavailable STEVE GARCIA Admitting Clinician Unavailable Payers Payer Name Policy Type Policy Number Effective Date Expiration Date S elijah MEDICARE A B [id number] [employer] OPEN ACCESS [id number] 2017 O NAP 00:00:00 [facility] MEDICARE [id number] 2020 COMPLETE CHOICE 00:00:00 PLAN 2 [facility] [id number] [facility] MEDICARE MGD 00:00:00 - [facility] [id number] 2020-Present MEDICARE PART A [id number] 2020 AND B 00:00:00 Problems Condition Condition Condition Status Onset Resolution Last Treating Co mments Source Name Details Category Date Date Treatment Clinician Date Venous Venous Disease Active [facility] obstruct[facility] obstructio 6 [facility] - n n 00:00: Medical 00 [place] Mass of Mass of Disease Active [facility] iliopsoas iliopsoas 6 [facility] - muscle muscle 00:00: Medical group group 00 [place] Pyoderma Pyoderma Disease Active Overview: [facility] gangrenosu gangrenosu 11-10 Post [facility] - m m 00:00: surgical Medical 00 [place] Hip 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[facility] osteoarthr osteoarthr 10-29 [facility] - itis itis 00:00: Medical 00 [place] Diabetes Diabetes Disease Active [facility] mellitus mellitus 10-29 [facility] - 00:[facility]: Medical 00 [place] Hypertensi Hypertensi Disease Active [facility] on on 10-29 Lu - 00:00: Medical 00 [place] Unilateral Unilateral Disease Active [facility] primary primary 10-07 [facility] - osteoarthr osteoarthr 00:00: Me dical itis, itis, 00 [place] right hip right hip Surgical Surgical Disease Active [facility] wound wound [facility] - infection, infection, Me dical initial initial Center encounter encounter Allergies, Adverse Reactions, Alerts Allergy Allergy Status Severity Reaction(s) Onset Inactive Treating Comm ents Source Name Type Date Date Clinician IOPAMIDO Allergy Active High Anaphylaxis SL EH L 10-06 00:00: 00 Iopamido Propensi Active Anaphylaxis [facility] l ty to 10-06 [facility] - adverse 00:00: Medical reaction 00 Center s Family History Family Member Diagnosis Comments Start Date Stop Date Source Natural father Lung cancer [facility] Natural mother Diabetes [facility] Social History Social Habit Start Date Stop Date Quantity Comments Source Sex Assigned At [facility] Tobacco use and 2017-11-18 2017-11-[address] [facility] - exposure 00:00:00 00:00:00 Medical Center Alcohol intake 2017-11-18 2017-11-18 Current drinker HOMAR rodriguez [facility] - 00:00:00 00:00:00 of alcohol [facility] (finding) Alcohol Comment 2017-10-06 2017-10-06 SOCIALLY HOMAR Oliva kes - 00:00:00 00:00:00 Medical Center Smoking Status Start Date Stop Date Source Never sm[facility] Medications Ordered Filled Start Stop Current Ordering Indication Dosage Frequency Signature Comments Components Source Medication Medication Date Date Medication? Clinician (SIG) Name Name folic acid 2020- No 1mg QD Take [address] [facility] [address] (FOLVITE) 1 6-24 07-24 tablet (1 [facility] k[facility] - MG tablet 00:00: 23:59 mg total) Me dical 00 :00 by mouth Center daily for 30 days. folic acid 2020- No 1mg QD Take [address] [facility] (FOLVITE) 1 6-24 07-24 tablet (1 Bret kes - MG tablet 00:00: 23:59 mg total) Me dical 00 :00 by mouth Center daily for 30 days. folic acid 2020- No 1mg QD Take [address] [facility] [address] (FOLVITE) 1 6-24 07-24 tablet (1 Bret kes - MG tablet 00:00: 23:59 mg total) Me dical 00 :00 by mouth Center daily for 30 days. polyethylen 2020- No 17g QD Take [address] [facility] e glycol 6-24 06-27 by mouth [facility] - (GLYCOLAX) 00:00: 23:59 daily for M edical 17 gram 00 :00 3 days. Center packet polyethylen 2020- 2021- No 17g QD Take [address] [facility] e glycol 6-24 06-27 by mouth [facility] - (GLYCOLAX) 00:00: 23:59 daily for M edical 17 gram 00 :00 3 days. Center packet polyethylen 2020- 202- No 17g QD Take [address] [facility] e glycol 6-24 06-27 by mouth [facility] - (GLYCOLAX) 00:00: 23:59 daily for M edical 17 gram 00 :00 3 days. Center packet gabapentin 2020-0 Yes 100mg QD Take [address] (NEURONTIN) 6-23 mg by [facility] - 100 MG 17:17: mouth Medical capsule 44 daily. Center gabapentin 2020-0 Yes 100mg QD Take [address] (NEURONTIN) 6-23 mg by [facility] - 100 MG 17:17: mouth Medical capsule 44 daily. Center gabapentin 2020-0 Yes 100mg QD Take [address] (NEURONTIN) 6-23 mg by [facility] - 100 MG 17:17: mouth Medical capsule 44 daily. Center famotidine 2020- No 20mg Take [address] [facility] (PEPCID) 20 -06 10-23 tablet (20 L ukes - MG tablet 00:00: 23:59 mg total) Me dical 00 :00 by mouth Center every 12 (twelve) hours for 30 days. morphine 2020-2020- No 30mg Take [address] [facility] (MS CONTIN) 09-06- tablet (30 L ukes - 30 MG [...] every 12 (twelve) hours for 30 days. famotidine 2020-2020- No 20mg Take [address] [facility] (PEPCID) 20 09-06-23 tablet (20 L ukes - MG tablet 00:00: 23:59 mg total) Me dical 00 :00 by mouth Center every 12 (twelve) hours for 30 days. morphine 2020-0 2020- No 30mg Take [address] [facility] (MS CONTIN) 09-06-23 tablet (30 L ukes - 30 MG 12 hr 00:00: 23:59 mg total) Medical tablet 00 :00 by mouth Center every 12 (twelve) hours for 30 days. Max Daily Amount: 60 mg enoxaparin 2020-0 2020- No 150mg Inject [address] (LOVENOX) 09-06 mL (150 mg Vicky es - 150 mg/mL 00:00: 23:59 total) Medic al injection 00 :00 subcutaneo Cent er usly every 12 (twelve) hours for 30 days. famotidine 2020- No 20mg Take 1 [facility] [...] 10 days. Max Daily Amount: 12 mg cyclobenzap 2020- No 10mg Take 1 CHI [...] 10 days. Max Daily Amount: 12 mg cyclobenzap 2020- No 10mg Take [address] [facility] [address] rine 09-06- tablet (10 [facility] - (FLEXERIL) 00:00: 23:59 mg total) M edical 10 MG 00 :00 by mouth 3 Center tablet (three) times daily as needed for Muscle spasms for up to 10 days. HYDROmorpho 2020- No 2mg Take [address] [facility] ne 09-06 tablet (2 [facility] - (DILAUDID) 00:00: 23:59 [...] every 12 (twelve) hours for 30 days. enoxaparin 2020- No 140mg Inject [facility] (LOVENOX) 09-06 0.93 mLs [facility] - 150 mg/mL 00:00: 00:00 (140 mg Medi perla injection 00 :00 total) Center subcutaneo usly every 12 (twelve) hours for 30 days. enoxaparin 2020-0 2020- No 140mg Inject [facility] (LOVENOX) 09-06- 0.93 mLs [facility] - 150 mg/mL 00:00: 00:00 (140 mg Medi perla injection 00 :00 total) Center subcutaneo usly every 12 (twelve) hours for 30 days. apixaban 2020- No 5mg Q.5D Take [address] [facility] (ELIQUIS) 5 09-01 tablet (5 Bret kes - mg Tab 00:00: 00:00 mg total) Medic al tablet 00 :00 by mouth 2 Center (two) times daily for 90 days. apixaban 2020-2020- No 5mg Q.5D Take [address] [facility] [address] (ELIQUIS) 5 6-18 -23 tablet (5 Bret kes - mg Tab 00:00: 00:00 mg total) Medic al tablet 00 :00 by mouth 2 Center (two) times daily for 90 days. apixaban 2020-2020- No 5mg Q.5D Take [address] [facility] [address] (ELIQUIS) 5 6-18 06-23 tablet (5 Bret kes - mg Tab 00:00: 00:00 mg total) Medic al tablet 00 :00 by mouth 2 Center (two) times daily for 90 days. apixaban 2020- No 10mg Q.5D Take [address] [facility] [address] (ELIQUIS) 5 6-01 20-23 tablets Luke s - mg Tab 00:00: 00:00 (10 mg Medical tablet 00 :00 total) by Center mouth 2 (two) times daily for 7 days. oxyCODONE-a 2020- No 1{tbl} Take [address] cetaminophe -01 20- tablet by Bret kes - n 00:00: 00:00 mouth Medical (PERCOCET) 00 :00 every 6 Center 10-325 mg (six) per tablet hours as needed for Pain for up to 10 days. Max Daily Amount: 4 tablets apixaban 2020- No 10mg Q.5D Take [address] [address] (ELIQUIS) 5 6-01 20-23 tablets Luke s - mg Tab 00:00: 00:00 (10 mg Medical tablet 00 :00 total) by Center mouth 2 (two) times daily for 7 days. oxyCODONE-a 2020- No 1{tbl} Take [address] cetaminophe 6-01 20-23 tablet by Bret kes - n 00:00: 00:00 mouth Medical (PERCOCET) 00 :00 every 6 Center 10-325 mg (six) per tablet hours as needed for Pain for up to 10 days. Max Daily Amount: 4 tablets apixaban 0 2020- No 10mg Q.5D Take [address] (ELIQUIS) 5 6-11 06-23 tablets Luke s - mg Tab 00:00: 00:00 (10 mg Medical tablet 00 :00 total) by Center mouth 2 (two) times daily for 7 days. oxyCODONE-a 2020- No 1{tbl} Take [address] cetaminophe 08-25 tablet by Bret hendricks - n 00:00: 00:00 mouth Medical (PERCOCET) 00 :00 every 6 Center 10-325 mg (six) per tablet hours as needed for Pain for up to 10 days. Max Daily Amount: 4 tablets sodium 2018- Yes 1g Inject 1 g [facility] chloride 12-05 intravenou [facility] - 0.9% (NS) 00:00: sly every Med ical PF Soln 20 00 8 (eight) Cent er mL with hours. meropenem 1 gram SolR 1 g sodium 2018-0 Yes 1g Inject 1 g [facility] chloride 12-05 intravenou [facility] - 0.9% (NS) 00:00: sly every Med ical PF Soln 20 00 8 (eight) Cent er mL with hours. meropenem 1 gram SolR 1 g sodium 2018-0 Yes 1g Inject 1 g [facility] t chloride 12-05 intravenou [facility] - 0.9% (NS) 00:00: sly every Med ical PF Soln 20 00 8 (eight) Cent er mL with hours. meropenem 1 gram SolR 1 g apixaban 2020- No 5mg Q.5D Take [address] [address] (ELIQUIS) 5 12-05 tablet (5 Bret kes - mg Tab 00:00: 00:00 mg total) Medic al tablet 00 :00 by mouth 2 Center (two) times daily. apixaban 2020- No 5mg Q.5D Take [address] [facility] [address] (ELIQUIS) 5 12-05- tablet (5 Bret kes - mg Tab 00:00: 00:00 mg total) Medic al tablet 00 :00 by mouth 2 Center (two) times daily. apixaban 2020- No 5mg Q.5D Take [address] [facility] [address] (ELIQUIS) 5 12-05 tablet (5 Bret kes - mg Tab 00:00: 00:00 mg total) Medic al tablet 00 :00 by mouth 2 Center (two) times daily. Vital Signs Vital Name Observation Time Observation Value Comments Source WEIGHT 2020-09-06 06:00:00 141.658 kg WEIGHT 2020-09-04 06:00:00 140.116 kg WEIGHT 2020-09-03 06:00:00 139.3 kg WEIGHT 2020-09-02 05:39:00 138.937 kg WEIGHT 2020-09-01 03:56:00 140.343 kg WEIGHT 2020-08-31 06:00:00 140.615 kg WEIGHT 2020-08-29 05:42:00 139.663 kg WEIGHT 2020-08-26 06:00:00 139.844 kg WEIGHT 2020-08-24 06:00:00 139.935 kg WEIGHT 2020-08-23 05:49:00 141.069 kg WEIGHT 2020-08-22 04:04:00 141.023 kg WEIGHT 2020-08-21 06:00:00 138.211 kg HEIGHT 2020-08-20 18:00:00 167.6 cm WEIGHT 2020-08-20 15:00:00 140.615 kg WEIGHT 2020-09-06 06:00:00 141.658 kg WEIGHT 2020-09-04 06:00:00 140.116 kg WEIGHT 2020-09-03 06:00:00 139.3 kg WEIGHT 2020-09-02 05:39:00 138.937 kg WEIGHT 2020-09-01 03:56:00 140.343 kg WEIGHT 2020-08-31 06:00:00 140.615 kg WEIGHT 2020-08-29 05:42:00 139.663 kg WEIGHT 2020-08-26 06:00:00 139.844 kg WEIGHT 2020-08-24 06:00:00 139.935 kg WEIGHT 2020-08-23 05:49:00 141.069 kg WEIGHT 2020-08-22 04:04:00 141.023 kg WEIGHT 2020-08-21 06:00:00 138.211 kg HEIGHT 2020-08-20 18:00:00 167.6 cm WEIGHT 2020-08-20 15:00:00 140.615 kg Systolic blood 2020-09-06 16:21:00 161 mm[Hg] [facility] Diastolic blood 2020-09-06 16:21:00 75 mm[Hg] [facility] Heart rate 2020-09-06 16:21:00 87 /min [facility] Body temperature 2020-09-06 16:21:00 35.78 Lovely [facility] Respiratory rate 2020-09-06 16:21:00 18 /min [facility] Oxygen saturation in 2020-09-06 16:21:00 97 /min [facility] Arterial blood by Medical Ce nter Pulse oximetry Body weight 2020-09-06 06:00:00 141.658 kg [facility] BMI 2020-09-06 06:00:00 50.41 kg/m2 [facility] Body height 2020-08-20 18:00:00 167.6 cm [facility] Procedures Procedure Date / Time Performed Performing Clinician [facility] e CT CHEST WITH IV CONTRAST 2020-09-05 12:35:00 Vandana Tejada [facility] COMPREHENSIVE METABOLIC 2020-09-05 05:16:00 Vandana Tejada [facility] 2D ECHO W/ DOPPLER 2020-09-05 01:05:41 Vandana Tejada [facility] (CW/PW/COLOR) [facility] SARS-COV2/RT-PCR ([facility] & 2020-09-03 21:48:00 Tricia Ramos [facility] - REF LABS) [facility] CBC W/PLT COUNT & AUTO 2020-09-03 06:17:00 Vandana Tejada [facility] CBC (HEMOGRAM ONLY) 2020-09-02 04:36:00 Hari Carlin [facility] PROTHROMBIN TIME/INR 2020-09-02 04:36:00 Shabana Perea [facility] CBC (HEMOGRAM ONLY) 2020-09-01 03:48:00 Hari Carlin [facility] PROTHROMBIN TIME/INR 2020-09-01 03:48:[address] [facility] US CORE BIOPSY 2020-08-31 18:48:00 Vandana Tejada [facility] TISSUE EXAM 2020-08-31 18:37:00 Vandana Tejada [facility] VITAMIN B12 AND FOLATE 2020-08-31 04:45:00 Vandana Tejada I [facility] CBC (HEMOGRAM ONLY) 2020-08-31 04:45:00 Raegan [facility] PROTHROMBIN TIME/INR 2020-08-31 04:45:[address] [facility] CT ABDOMEN/PELVIS WITH IV 2020-08-30 10:28:00 Gadicherfl, [facility] CONTRAST [facility] CTA AAA AND RUNOFF 2020-08-30 10:28:00 [facility] B[facility] 2020-08-30 05:17:00 [facility] - W/[facility] CBC (HEMOGRAM ONLY) 2020-08-30 05:17:00 Raegan [facility] PROTHROMBIN TIME/INR 2020-08-30 05:17:[address] [facility] HC ARTERIAL DOPPLER LEG 2020-08-29 16:05:00 TraceyerHumberto keaneal I [facility] UNI [facility] CBC (HEMOGRAM ONLY) 2020-08-29 12:50:00 Gadicherfl, [facility] HEPARIN ASSAY - LOW 2020-08-29 12:50:00 [facility] - MOLECULAR WEIGHT [facility] CBC (HEMOGRAM ONLY) 2020-08-29 05:03:00 Raegan [facility] PROTHROMBIN TIME/INR 2020-08-29 05:03:00 [facility] BUN AND CREATININE 2020-08-28 16:37:00 Gadicherla, [facility] - W/RATIO [facility] VENOUS DOPPLER LEG, LEFT 2020-08-28 12:43:00 Traceyerlakhwinder, Tricia C [facility] CBC (HEMOGRAM ONLY) 2020-08-28 04:42:00 Raegan [facility] PROTHROMBIN TIME/INR 2020-08-28 04:42:00 [facility] SARS-COV2/RT-PCR ([facility] & 2020-08-27 18:10:00 Gadicherlakhwinder Tricia [facility] - REF LABS) [facility] PROTHROMBIN TIME/INR 2020-08-27 12:22:00 [facility] CBC (HEMOGRAM ONLY) 2020-08-27 04:06:00 [facility] 2020-08-26 11:47:00 [facility] CBC (HEMOGRAM ONLY) 2020-08-26 11:47:00 [facility] CBC (HEMOGRAM ONLY) 2020-08-26 06:00:00 [facility] PROT[facility]/INR 2020-08-25 18:11:00 Stephanie [facility] CBC W/PLT COUNT & AUTO 2020-08-25 14:27:00 [facility] (HE[facility] ONLY) 2020-08-25 06:58:00 Raegan [facility] APTT 2020-08-25 06:49:00 [facility] APTT 2020-08-24 22:45:00 [facility] 2020-08-24 12:42:00 [facility] BASIC METABOLIC PANEL (7) 2020-08-24 05:41:00 BorisTom yoon [facility] CBC (HEMOGRAM ONLY) 2020-08-24 05:41:00 Hari Carlin [facility] APTT 2020-08-24 05:41:00 Gadicherlakhwinder [facility] APTT 2020-08-23 21:14:00 [facility] (HEMOGRAM ONLY) 2020-08-23 14:11:00 Gadicherfl, [facility] APTT 2020-08-23 14:11:00 [facility]OPPL[facility] LEG, LEFT 2020-08-23 12:46:00 [facility] EverettHumbertoal [facility] BASIC METABOLIC PANEL (7) 2020-08-23 04:08:00 BorisTom yoon [facility] CBC (HEMOGRAM ONLY) 2020-08-23 04:08:00 Hari Carlin [facility] BASIC METABOLIC PANEL (7) 2020-08-22 05:37:00 BorisTom yoon [facility] CBC (HEMOGRAM ONLY) 2020-08-22 05:37:00 Hari Carlin [facility] US EXTREMITY NON-VASCULAR 2020-08-21 14:30:00 Hari Carlin [facility] Center CBC (HEMOGRAM ONLY) 2020-08-21 05:50:00 Hari Carlin [facility] COMPREHENSIVE METABOLIC 2020-08-21 05:50:00 Hari Carlin [facility] PROTHROMBIN TIME/INR 2020-08-21 05:50:00 Hari Carlin [facility] XR HIP 2 VIEWS LEFT 2020-08-20 18:25:00 Hari Carlin [facility] XR LUMBAR SPINE 2 OR 3 2020-08-20 18:20:00 Hari Carlin [facility] - VIEWS [facility] XR KNEE 3 VIEWS LEFT 2020-08-20 18:14:00 Hari Carlin [facility] CBC W/PLT COUNT & AUTO 2020-08-20 15:02:00 Hari Carlin [facility] DIFFERENTIAL [facility] COMPREHENSIVE METABOLIC 2020-08-20 15:02:00 Hari Carlin [facility] - PANEL [facility] MAGNESIUM 2020-08-20 15:02:00 Hari Carlin [facility] PHOSPHORUS 2020-08-20 15:02:00 Hari Carlin [facility] LACTATE DEHYDROGENASE 2020-08-20 15:02:00 Hari Carlin [facility] (LDH) [facility] URIC ACID 2020-08-20 15:02:00 Hari Carlin [facility] Plan of Care Planned Activity Planned Date Details Comments Source Future Scheduled 2020-11-15 INFLUENZA VACCINE (#1) [facility] Test 00:00:00 [code = INFLUENZA Medical Ce nter VACCINE (#1)] Future Scheduled 2020-11-15 INFLUENZA VACCINE (#1) [facility] - Test 00:00:00 [code = INFLUENZA Medical Ce nter VACCINE (#1)] Future Scheduled 2020-11-15 INFLUENZA VACCINE (#1) [facility] - Test 00:00:00 [code = INFLUENZA Medical Ce nter VACCINE (#1)] Future Scheduled 2020-03-[address] [facility] - Test 00:00:00 (12+) [code = Medical Center DEPRESSION SCREENING (12+)] Future Scheduled 2020-03-[address] [facility] - Test 00:00:00 (12+) [code = Medical Center DEPRESSION SCREENING (12+)] Future Scheduled 2020-03-[address] [facility] - Test 00:00:00 (12+) [code = Medical Center DEPRESSION SCREENING (12+)] Future Scheduled 2020-02-15 Medicare IPPE (WELCOME [facility] - Test 00:00:00 TO MEDICARE) [code = Medical Center Medicare IPPE (WELCOME TO MEDICARE)] Future Scheduled 2020-02-15 Medicare IPPE (WELCOME [facility] - Test 00:00:00 TO MEDICARE) [code = Medical Center Medicare IPPE (WELCOME TO MEDICARE)] Future Scheduled 2020-02-15 Medicare IPPE (WELCOME [facility] - Test 00:00:00 TO MEDICARE) [code = Medical Center Medicare IPPE (WELCOME TO MEDICARE)] Future Scheduled 2018-11-[address] [facility] - Test 00:00:00 malignant neoplasm of Medica l Center colon (procedure) [code = 095341083] Future Scheduled 2018-11-[address] [facility] - Test 00:00:00 malignant neoplasm of Medica l Center colon (procedure) [code = 475902041] Future Scheduled 2018-11-[address] [facility] - Test 00:00:00 malignant neoplasm of Medica l Center colon (procedure) [code = 385152468] Future Scheduled 2017-10-[address] [facility] - Test 00:00:00 measurement Medical Center (procedure) [code = 01483835] Future Scheduled 2017-10-[address] [facility] - Test 00:00:00 measurement Medical Center (procedure) [code = 35215815] Future Scheduled 2017-10-[address] [facility] - Test 00:00:00 measurement Medical Center (procedure) [code = 38394415] Future Scheduled 2010 SHINGLES VACCINES ([address] [facility] - Test 00:00:00 of 2) [code = SHINGLES Medic al Center VACCINES (1 of 2)] Future Scheduled 2010 SHINGLES VACCINES ([address] [facility] - Test 00:00:00 of 2) [code = SHINGLES Medic al Center VACCINES (1 of 2)] Future Scheduled 2010 SHINGLES VACCINES ([address] [facility] - Test 00:00:00 of 2) [code = SHINGLES Medic al Center VACCINES (1 of 2)] Future Scheduled [address] - Test 00:00:00 (procedure) [code = Medical Center [id number]] Future Scheduled [address] [facility] - Test 00:00:00 (procedure) [code = Medical Center 35757600] Future Scheduled [address] [facility] - Test 00:00:00 (procedure) [code = Medical Center 22689866] Future Scheduled [address] [facility] - Test 00:00:00 malignant neoplasm of Medica l Center cervix (procedure) [code = 295747844] Future Scheduled [address] [facility] [facility] - Test 00:00:00 [facility] [code = 879916378] Future Scheduled [address] [facility] - Test 00:00:00 [facility]procedure) [code = 391905623] Future Scheduled 1979 DTAP/TDAP/TD VACCINES [facility] Test 00:00:00 (1 - Tdap) [code = Medical C enter DTAP/TDAP/TD VACCINES (1 - Tdap)] Future Scheduled 1979 DTAP/TDAP/TD VACCINES [facility] Test 00:00:00 (1 - Tdap) [code = Medical C enter DTAP/TDAP/TD VACCINES (1 - Tdap)] Future Scheduled 1979 DTAP/TDAP/TD VACCINES [facility] Test 00:00:00 (1 - Tdap) [code = Medical C enter DTAP/TDAP/TD VACCINES (1 - Tdap)] Future Scheduled 1972 COVID-19 VACCINE (1) [facility] Test 00:00:00 [code = COVID-[address] VACCINE (1)] Future Scheduled 1972 COVID-19 VACCINE (1) [facility] - Test 00:00:00 [code = COVID-[address] VACCINE (1)] Future Scheduled 1972 COVID-19 VACCINE (1) [facility] - Test 00:00:00 [code = COVID-[address] VACCINE (1)] Future Scheduled [address] DIABETIC EYE EXAM [facility] - Test 00:00:00 [code = DIABETIC EYE Medical Center EXAM] Future Scheduled [address] [facility] - Test 00:00:00 examination Medical Center (regime/therapy) [code = 387298923] Future Scheduled 1970 Urine screening for [facility] - Test 00:00:00 protein (procedure) Medical Center [code = 956261806] Future Scheduled 1970 DIABETIC EYE EXAM [facility] - Test 00:00:00 [code = DIABETIC EYE Medical Center EXAM] Future Scheduled [address] [facility] - Test 00:00:00 examination Medical Center (regime/therapy) [code = 411614150] Future Scheduled 1970 Urine screening for [facility] - Test 00:00:00 protein (procedure) Medical Center [code = 281371156] Future Scheduled 1970 DIABETIC EYE EXAM [facility] - Test 00:00:00 [code = DIABETIC EYE Medical Center EXAM] Future Scheduled [address] [facility] - Test 00:00:00 examination Medical Center (regime/therapy) [code = 213369739] Future Scheduled 1970 Urine screening for [facility] - Test 00:00:00 protein (procedure) Medical Center [code = 752305269] Future Scheduled [address] [facility] - Test 00:00:00 0-64 YRS (1 of 1 - Medical C enter PPSV23) [code = PNEUMOCOCCAL VACCINE 0-64 YRS (1 of 1 - PPSV23)] Future Scheduled [address] [facility] - Test 00:00:00 0-64 YRS (1 of 1 - Medical C enter PPSV23) [code = PNEUMOCOCCAL VACCINE 0-64 YRS (1 of 1 - PPSV23)] Future Scheduled [address] [facility] - Test 00:00:00 0-64 YRS (1 of 1 - Medical C enter PPSV23) [code = PNEUMOCOCCAL VACCINE 0-64 YRS (1 of 1 - PPSV23)] Future Scheduled [address] [facility] - Test 00:00:00 [facility] [code = 595982570] Future Scheduled [address] [facility] Test 00:00:00 [facility] [place] [facility] (procedure) [code = 536957533] Future Scheduled [address] [facility] - Test 00:00:00 [facility] (procedure) [code = 240618629] Encounters Start End Encounter Admission Attending Care Care Encounter Source Date/Time Date/Time Type Type Clinicians Facility Department ID 2020-12-24 Inpatient ER LOIDA TEJADA Inter Rad [id number] [facility] 00:09:17 VANDANA 2020-11-21 Outpatient SYSTEM, MDA MDA [id number] 11:08:21 PROVIDER Holland o lashonda 2020-11-02 Inpatient EL GARCIA, MDA MDA [id number] 23:20:41 GAURAV And erso R n 2020-11-02 Inpatient EL GARCIA, MDA MDA [id number] 23:20:37 GAURAV And erso R n 2020-10-28 [facility] [id number] [facility] 00:00:00 Encounter [facility] 2020-10-17 Outpatient SYSTEM, MDA MDA [id number] 12:21:12 PROVIDER Holland o lashonda 2020-10-28 2020-11-03 Inpatient UR GARCIA, MDA Sarcoma [id number] 08:47:00 13:55:00 GAURAV Ferreira derso R n 2020-11-03 2020-11-03 Inpatient EL MAYE, MDA MDA [id number] 08:41:05 09:10:15 BIJU Carsoners o lashonda 2020-11-02 2020-11-02 Inpatient EL GARCIA, MDA MDA [id number] 22:10:35 22:18:01 GAURAV An derso R n 2020-11-02 2020-11-02 Inpatient EL MAYE, MDA MDA [id number] 17:03:33 19:31:59 BIJU Carsoners o lashonda 2020-11-02 2020-11-02 Inpatient EL GARCIA, MDA MDA [id number] 08:16:22 08:26:03 GAURAV An derso R n 2020-10-31 2020-10-31 Inpatient EL STEFANO, MDA MDA [id number] 15:19:32 21:47:10 BAL Carsoners o lashonda 2020-10-30 2020-10-30 Inpatient EL GARCIA, MDA MDA [id number] MD 04:31:13 04:49:40 CLAYBECKISTARRJEAN Hanna elaine R n 2020-10-29 2020-10-29 Inpatient EL STEFANO, MDA MDA [id number] MD 18:24:24 19:40:21 BAL gallego 2020-10-29 2020-10-29 Inpatient EL SCOTT, MDA MDA [id number] MD 18:24:28 19:36:56 SUE gallego 2020-10-29 2020-10-29 Inpatient EL SCOTT, MDA MDA [id number] MD 10:00:26 10:24:36 SUE gallego 2020-10-28 2020-10-28 Inpatient EL SCOTT, MDA MDA [id number] MD 22:30:59 22:52:26 SUE gallego 2020-10-28 2020-10-28 Emergency EL KATARINA, MDA MDA [id number] MD 10:57:00 11:46:41 BRENDAN gallego 2020-10-14 2020-10-23 Inpatient ER SCOTT, MDA Sarcoma [id number] MD 16:40:00 16:38:00 SUE gallego 2020-10-21 2020-10-21 Inpatient [facility], MDA MDA [id number] MD 18:46:01 19:27:32 BOB gallego 2020-10-21 2020-10-21 Inpatient [facility], MDA MDA [id number] MD 14:16:27 14:16:55 BOB gallego 2020-10-20 2020-10-20 Inpatient [facility], MDA MDA [id number] MD 20:10:36 20:13:24 BOB gallego 2020-10-17 2020-10-17 Inpatient MAYE, MDA MDA [id number] MD 15:00:32 15:42:49 BIJU gallego 2020-10-16 2020-10-16 Inpatient [facility], MDA MDA [id number] MD 09:18:38 09:49:47 BOB gallego 2020-10-15 2020-10-15 Inpatient [facility], MDA MDA [id number] MD 11:01:50 11:06:18 BOB gallego 2020-10-14 2020-10-14 Emergency EL JUAN GALVEZ [facility] [id number] 19:53:40 20:54:56 ALEXYS dupont n 2020-10-14 2020-10-14 Emergency EL STEVEN MARTINEZ MDA [facility] [id number] 17:59:26 17:59:31 Holland gallego 2020-08-20 2020-09-06 Hospital ER Vandana Tejada [facility] [id number] 13:34:00 17:17:00 Encounter Hari Carlin [facility] Bryant Willis 2020-08-20 2020-08-20 Travel [facility] [id number] [facility] 00[facility]00 [facility] Results Test Description Test Time Test Comments Results Result Comments Source Tissue Exam 2020-09-14 10:56:00 Test Item Value Reference Range Interpretation Comme nts Case Report (test code = 104) Surgical Pathology Report Case: [id number] Authorizing Provider: Vandana Tejada MD Collected: 08/31/2020 06:37 PM Ordering Location: [address] Received: 09/01/2020 08:13 AM Service Pathologist: Thien Radford MD Specimen: Groin, Left, left iliopsoas mass biopsy ADDENDUM (test code = 3381) s1unqCNgKCVdqTJ8BgQySNIof5bev9XxbAJtkMU sYKpsmHNmyuMonk89aOQ9pF33IE5yKIIyGtC6ZY FjtsQ9Ved5UZGlIZXwoENwX231e7tqj0fijwSpy OP7zJbjVAJuCNLyRNpgAYBhOaIsOE9lcQ2rmQyo yB0xaSCznXDovRKehHVatYXcIGXzibYwci6jOJM fsuDhyG1kwvGGCRFyTG3mrlX6nhI1EME3kHNgsy PgbPimh0FwAmSoFJayewC9qcQuHZObo9MasZf1L VKuf5PtG4TwIK9oDOwcsAMlptXkotIeABEavgIp Lv2mZQbncjI2yG6rXNHtBHBsKGWre66sqvqgEE0 OUHLibI9onLstvIYbC6hvJXOfzNvfZVfWJZUuAN EBZFR6HTCcneHlF0SXUQKeQYRhl1ekSxBgXWXya cTkeJ7fHVcdGrniN3zoZemzpGFcukInfPAjlBZi KKXyreazcmlvSpVhfYYsUHJ1krT3KFImIZbhPBI voXEcTYVlQYDeDP6prFOagZndVZQhhFagYWBsWK XwyoLgMNOvb89hoWAsrMUhaXb2i5gqTCNcZHM3d tRiAODdHSYfPDRbMRPbeHVqYE3oNIOlPEUpgxJj ePRuHuFXpMQlUAIspkGali5lylSiZFvyeMPiwzZ xgZNbcNRoiJm3d9FaCyElvZo9baDpOAAdEUBstg PvTQbwe9D4VSXevCgxvhHkiFSnQN4nURPpEXFhG lVoEGRhd6Uqsz8tcLQxHYAyacCHkzVaYUfiNBK5 nDFjnjV6rSMiRL3tVSQdAKDzNLXyo09toKQxqA1 pJYGfme1haiH4FQAsu8haxpAaXZojLMJsif2hTF OurZ0uDjTjhJRpyKliTS45AkxtAHPpqPGpINRbg HZeP2IiQPR9qXneRKGbPNKqHcMoadBlEKRmOJ9I EHZpTDNcy03yDFEtkaErb85fyDz7NNIfu54pUPS sYNXtMRBmCKKrMFAwpH8ipNK5iGqsKGKnzHfrbv 8mbPJpMSBifdHFlqNqWUWqlVDxxB4twzBalWYyQ FKwPAx8XBGeZfJEbL9mZLJwJX8mZ8zkANvbnnbd YXJ9 DIAGNOSIS (test code = 3220) m0loyKYdNQVpg7qtOHAvlADkRlAgUcEpLeBtJf p cdWMxIHtccnRmMVxlcGljOTIwMlxhbnNpXHNwbH DpL2JpvthvGAuyMR4hHX1feXlvaQNgaLTyGZPvE bJgt8gzf020fIXnw0ucEDEVmpgfrAo2gKgiE13g u5T4FaknN09eqQGsTQslaVBaslbizqLuTOUIMfF yKHRCZPCNUIeSHZ4GG99QVgTPCDVOIXBQGF9MC3 t6QQCufeDEPMjIXKfHEMAEQQyfIvCGCPlND13gF WCuazNZMN6KMKPUPoDJLaYFJIXBQUjBVpXANB4M KF2INLiXYWKSD3LCOD6ZTXzWBN0JXxyxCXXhLTC MTV5BAC7iNwVRV8ABXGUDELYPZKhZGv3uDUHnoj 29IRA0AlElf0T8QHL5SRIsXAPib1ftNEMkiGTaF iGoIjUhArNeAjevpVJpDTEkFlPxf0mep696tWAd w2cpOQLmXrQ7wEZoUJCiyOBdG121JKCaIJrhb6o ye7CpISNgzYXzc4F9DWKYtuzgcNc8mUopL61zf4 V2JmbqH9lbVNTcHIUvI8PoSM6cXCNoDee1QFN7T ZO3WNOnFCFoX0PnDB6uGIXhpJPeWIu1d9blwGpo MCXuXCC9k6hrMEgeclVuKO0eln7qrGm2i5wcorU nXNWvBGKrkKXFEWMiR2IfzIspPr0mhMi0yRzpLc csOFC8Ozj2GX6qro23syu6kSmlSKInprhiAnY0I JotQNVfncdkQZy0SCpaCLBjsDZ3NZRplDXeE4Gg BEIpDK6oodd1CKK6DWfpTNXmGaL6AANzhQLaPFJ yzOnjUDvyl500ASZ8OeJfHK9yI3Amk7E9aK4ruZ HtFFPtnGIlFbKsBBVazk9ilBLeAYchx1ZnFLY5x cD9kSGhbGAoMLHsPlI6PEmpVT4idx96KJAeJUX5 xw8rgJFmnWlousZpeCSvGYqdX2QbKPClp099PTX wY5SaWZHek6P5klKuPgQfZYXmuNE8sfW3YDAtGX 3srqkgu4lvYJmoZTxqSRObzhM9vuB8QJCkyESgN 6XhiI5aGUArKK1payvfn7xiZLQ8ITaqBSLjUTH3 LjOpEXHjh9Mteby5BwKkx1NccEJfWDapW66zt36 2GXPulvMlT7pusLWpqzdlkLFfkdjfPHbriwY9PM SsFCmhxezfDFBzAZguT5uxIkJlHGKlgTmgXMoct 7UqFXCeYPSgObRkjEWgGIStCgt9LVPupGWwTBIk LqOwH8zedeefVmBQOSMpe6kqA9ybpGHPsEYbG0M xEHaqwpJdTHufBBdaSZXoKNY8NO79ZFlwGDWkhz 19 CPT Code(s) (test code = 3357) e7ybqRGbGVBwyYL8EyBySRSon5yam4WunYFp cGF oZXwmqQDxcmVclf63tPO8xY59OU6nLPHtReJ6MX QhooK7Opx1TJUvPRHmmFYhV766a2bhr6zkdzIch IE7rCckFCNmUYYeVEewPLQfTnEeXJktPPDvUKp0 PsUtMYV6RCS7PKe4MSXzqc9= CLINICAL HISTORY (test code = 3356) w9wtrRQrPOYdcOF6KkDwWFCyz4vxy1C sdHBncGF nOUzgnIReeoSvxs66pDJ6jM17JZ5pVNUvDtI4FT YmibC8Ocm3RJCnYPIrsDOaM415u6nki7hpsbPhd PM4nDdxXJNjAMFrRVrhMMUzPeGjPKMhuWAimi5x xvBfjXC9R5xzeL2np25xxiJwXKQfFJK3UgYbzEA 8IoJkhDMyLVRbFTvbZEP3 SPECIMEN SOURCE (test code = 3377) p9ysqYQlFEWytEP5KtHqDGIpz0tqa6Rl dHBncGF gOKcykYBaqwGwhd89bLK8wB29UX4lZZLrEyX7GF KwbuD0Evj3MDYbRFHhrFSiX392l1wde8ppvkOrp EH4nFdcERImIUTkUUozBBWeYiPpXAFktCKwis8w ib4vuYchkUYeSCJlhFUehV== GROSS DESCRIPTION (test code = 3366) i0mtxTUkVWExcIFyHyIkWVTnAIZsw0 lcZGVmbGF vHfQlKzVcOiKaAhwjgOPoWXYgCgImn6ivk211yZ Afg6whXCRMvhppwPv4t5ciDBPlMaU9pPObEWxdD 1oropZsnVVuOLAjSCh0gB84GBFneQ6lkIDvZHbk nxZfGaL5KEukTHLjQiT0EZIfqMRmMIEuM9nmZEW fIWpeZFXuZDzvjLOzFEA8dGgln7H4pDMdcXNmaM snBbPbIqXkITEJm0FsRZn6hTlqK4WmYOXyXlK3c DRxFUKyIXsvYGBmLBCluhI6gT05UBlbmwU6oUUe y6Shk34my938rD2urKAuXAH9INPjHPDecHUpTTD qETD2TWDtgXXmK9h0PxAkqMPlR4G3DgFkwEPuF1 B4ImMpbXNnR5L0LxFchTSmJOGdtMZlDt6agVUrp LAlis0gov85TYJ0u8StfCdnIJC4OFC0YgFbLh0l tVXjGQUoABRyzNTiSDXcWH5hyUYyMCXwwD2lfms sAUXhKyAsgasqANBkzLamxsXpLj9uwBnlRYM0NN umR1zcvO7aTcS3PKgtV5xmgL1lNYj2OHcwwQB7F JYpqJ0vSN9peqwlh7tuUpDjKP6iiissj7qtHcFo UX9myey3t7ugHqFmAX3elgwvy7twEfBgXCgnYBM vumhvBTVtq7FpupvvICUes7JfD3RhcKpwR61ntS ykO36pJQAckQbfpH8blQkszU1pVsVkMtLvKOjfD XJkXHBsYWluXGYxXGZzMjBcbGFuZzEwMzNcaGlj jFwbOJvpGfDnVMWlMZmtK4axCzMnAsMqKKSHChA LYQVceAAwIARxfiDxe3KpHSncinYqIYBalNVcEM ihjKyeqElcPDUduPqcetSrU0W3eoIiKA5uVWLmF OKsK0TkFRKoD10zMTOmsO1sCMXtEY6qLDGcbd3e xudqcJDgdSLtRS9vARYzteZhv9TqGV3zVV19uPR phUnbHOryCTiso7wzaROte08syQK1dZQuoFUpE5 1zDCAutpLhQ4ugGeLtMxHqAK3aDLCoTCcaPTxrh dd8hCGkmBOanJY7LIMuzQ4xtZ50dnTjilYVUD2j fLszHCtpkL4pTVPmRTboXYYrH6EezO8aEX7VUyz pBFMlWAPAL7PuZ50rfGLsbX== MICROSCOPIC DESCRIPTION (test code = p3dveAIeJHPhrSJ6BfYuWTHjt4jab7 BsdHBncGF 3371) dKEyccJQwmpVswa62eHN7eB56BY2mCFBiQuC8AP KbwvV8Xpq0ZXJpXOTokYMyV926k2fnn4ollhSpk OF5tBlaMUAoUVCiIZebXLVhSlGkNRMCXw8IHMSP XHBhcn0= SPECIAL STUDIES (test code = 3376) y7mnpBNfYGLkuFD6KsMeNMVmt8qon1Vk dHBncGF gVGazrOZfoxMvaj99bCW1vO78IX8zATIxCwN1XS HmqfW2Ugg5JQTqHHAvvTGnD927KTClFHJvsZgts fu2jB63YIBkyB2vtWNzCXs3OUQtknXucDybhC1f IoUyUsVnLhWZuGQnrK19QLIjdeV3RUYde06vj7W hcVuahwYaFOIdZSqbS7w0RGIiUUYtIIM6v2Nbe2 IreH9dhF9lnGuccJ0uiKHttLG9kaevu1Ruy0ZnN 4twiIDqqPPqthIlYALcdiFDIJ3XJpCOUE2bJ5FV OQQGTiqjAoAwVSeiBTCRYCpPBOAKDEU0QVMHWOL uEXYESUpbSSJnO88ebYCqjPGWhQsoANAcHXfiuH sqJUD8GVEAxt5mf3OtSLTicx55hbEnk5JoyRx2L VUnz511vx8qezL1YMEzAJV6JFm2ERUbKJEjdY4q JzH2nNBfYXLtTBO3YPI9MIZni0C9CV3hBVNfGFW jYHPqtiWgs8dkx8ffZYEwNXS7nyVugT0gO9WmVD Mgt0HrhLgeSUOofMgrubPdIHHbyIWvPNYflY23B BUbgZPwdOMgWTNwZGJ2RDiwfW6iJzONuaMnpm4s iNFvf4NbeLz8NBMjycRqdpWtBADgttRwP06fySS hiLYej5osfxJjdwOqsRPjvDGyKTXvLZJ5KWr1JY PqHZuoIPRzHJywWOHoPJ8jtO2fpJhydX8ohEXnn TI1emcheAOwhA8cZ8MpCRBxe6Giknxdf3TnGUEz vwMync8jWEWodXGZRLhhk2OjE9VwDDa8j4VrlTr mBKzbTQu2ZzGvIJLalXHaxOFTIO46KWApXAQzuF jcaJ2juSUYBNNvufG7s1U4TMvjBMIzBMd0PAyyo rEdJJUlfT0bZSLmUK3bQSs3srGgSRPwu0DkHS0k HJSevRSlOXZ6ADGdq8JeS5Ubf6ToRJCeGBInsl5 nqaWbWaEZbUGfQSOrcn53JDAiOZ3oU4joQNFyPA TjomMjmLFmy9JpQMLxcID6tYNjUS1ZPyGIa55zC RRuRLMIjhQyAYOlqMpiqAB7vyJ8mI1wLsRZvYEh DqFVSXbvxcEzWNHovt3rgqZmQZWuIOXln4XnzRI qmQVicfBnM2Fht4GtBUEecd66RQvgrIRgjp86GJ 2dW9Hbz7LdtZ0yQGprOHZoy8DmjWLjaVErPEXet 9FuL1xqiyooQDqndHYmeV1nAVJmCBf6WZEqd1Cb FASui3IcQfZovrUwLIGqPALgIGCkuR67PDS6lUo ktHrgjnSjNI4fBHZlnxQfXBRaVSEczW5hMZdull NrWXThacZ9p4D1HAbtNZDqlaJfUklaMTN4ooFlb hJ1gTDmM5wxeyjtQKadYRZng4FlnM7nmQELzNCg l6BfoUGspHBQvRErMY0szlWtDL2sUMT1DZysDLA XRVCeXMenSXGfIYU4KCrqGsxpZRA1ciEdKXGve2 LqNXgeD0ejU60ytEylvVy5tSLxlLlmoODoxOMhS ZXkdnR8p9N2QHSno1VtyixtONFhnc5= Gross assessment was performed at (test [facility] enter, code = 2777) Department of Pathology, [address] [place] [address], Technical component was performed at [facility] er, (test code = 2778) Department of Pathology, [address] [place] [address], Professional component was performed at [facility] enter, (test code = 2779) Department of Pathology, [address] [place] [address], [facility] [id number] 10:56:00 Test Item Value Reference Range Interpretation Comments Case Report (test code Surgical Pathology = 104) Report Case: [id number] Authorizing Provider: Vandana Tejada MD Collected: 08/31/2020 06:37 PM Ordering Location: [address] Received: 09/01/2020 08:13 AM Service Pathologist: Thien Radford MD Specimen: Groin, Left, left iliopsoas mass biopsy ADDENDUM (test code = s4hgwUVtFUBopBH0GlAjUC 3381) Nnp6vwa9LngMUbaEUvBUpa kKVzfhVdwc34xKZ6nC98TZ 5hKBGmCuH5NHEswsU5Yfc8 AQErPQOfmHOkR024m8vcu1 owvhEgiDD2nZklGHUxAISz PRjbGUGoVxMnPT2rrG5vsC tswS6aoIXpjFQmiXEubLEh iZMdHVBegyIfoc7sNXBykl KlxZ9eusZHCOVpLT4xgvS3 efQ3UYQ9gHWenrKlmHkds0 GvTtXpETcectT9ozBhRMSa k5LeyEn3SMBpy1NlT7GxLJ 4gVGhleSBhcmUgbmVnYXRp doQnPo1pBPemznD4wX4qUA KkYEFdFVBgi52ujoajSQ7A JARqnC4vcTnrhCRzR3jwXW FjdGluIChTTUEpLCBNVUM0 YZXtafVdS6UGBGWuJVMel0 ehHsIcDUOvusBsuJ6wASat GvjeR5dyStdsxZAobaOxbK FibGUsIHJhbmdpbmcgZnJv kJKpLBJ3dgP2VNUaQWonVE WduORuOAEzTFMhFE1ygNWn dGljIGNlbGxzIHByZXNlbn WwHLNgc05yzTUvzXRouNq2 r5ggQHUmYWG3ibJjRSZhBD ErBQUaKUDpmMQmTO0hQSGm ZWQgbnVjbGVpLiBUaGVyZS BwyvNbgv0pgyTpSCsgmGPo gtQmhNGtcYQevYd4p3KoAa QcsOg3ppAbFGOkNQRvvgFi CJqrz0O4XYBncDaijsBgbU JgNR6gGFKnKHMpMmJbESOe x7Svfr6ajVQbDYYsgfEWxr XeYIbaYYZ4nUBhzjW4fLWi ZL2vXLZbPQDdWVUdm48nmN GmcO7jNIUhxa0cqkR4CJWb x8ugskHmJWqhKJKbcv4eRX SwfE5mVbHzqGZitXbvBL35 LlxwYXJccGFyIFRoaXMgY2 UlSQS4aHsaGDArYDVtRfAu jcSeESVtZF0BAWWjBLAdl7 2ySCKdehKaw25qhGq0CBIy h88pAIBuZECqRTVzPXMpUF VofJ6drUC9hFzbPAQunFhq vy5mwNQgKZYlchHOxfAjVZ TtvSVwwW8kaaHikBKbUQJx LTf8JCCeGiECdL3rBEYaES 6rR0bkUEpieryeHAH9 DIAGNOSIS (test code = q0cxvAKmPXHic6ayBICnmF 3220) FuZzEwMzNcZnRuYmpcdWMx IHtccnRmMVxlcGljOTIwMl gicoOcVUAisAWeA4Evvofg QFccEY9kXF1biMecfFLneT VwSJUoEjOjv3zds296eIMp h6mfPMGZcwiaeKa1sHmoY6 3gi6O9UtbbL07doTLjANam bGFpblxmczIwIFBBUlQgQS MWQMCSHTnYOB9PL48NYpMR ZEWOEDJULA6JP2i8FWFsqo BTUElORExFIENFTEwgTkVP FRaWM53xCVCpiaDPNO6TRJ BJTlRFUlBSRVRBVElPTiBQ NL1GIS0LQEoLZJOZZ3IVPD 1DZJbHSW2NLfnoKJMvPKBJ MN6VYG8jPfWFP5JCSTSFDQ EVNIsXRk2jMDIkxx28GAU0 PgUny4X4REL2ZZRfUKPsg4 lcZGVmbGFuZzEwMzNcZnRu ZshihVIxHTZuVmAqf4wlo4 86tHAwf4gyRLWfJmQ0rBFh BAQmeKEoH914ORMyIEmqf0 qsa6SmAOSawAMjg1V6XLZU fhvlmRw7fWjpH24xy3R1Fl wcM3yoMFEfYOKmQ5LyGG8a AWQlLwv1ACK8MDZ4HUYzMW SsC0SiUL5qNISjuCNzDMy6 t6qpxHxgNUScYWO0h9ttQA khfjQkZV0wds2kxFe5p1hx czEgRGVmYXVsdCBQYXJhZ3 IwrAzsNe4vjLx4xPqeHlyo QFM9Mgg5UT0due92nka0wB fbUIEesrvpBkG9ADnwCIKq akqgGJj3MMwlXUZybTG4CH FonAWfR5XuUBZeQX6nggs1 HRR5TTvzGOBoVxO7IVNucE AhETHzeBlcASpor516BNJ5 UnHbKL9aN5Hak6M7qE9ejY JcCMAuwZXuGgKoKIWilk7c uAMiICelh0XqARY8ieK5qW NaiAUeQYHyYoE7RWxcRS6r ij83RRJePYG5lc7dyAZonI zzqcMklIEvGUauP3LiBBIa y562JTDtJ1LdNCZsd7S8vo DxDdTkMSHddAP4ciP9INVh UK5liofax6mkEGpwIUrwAM GsudJ1vrV7ZFPdnFFxZ6As sA8hKELgFQ7gfjgrv7xgFI U2QTdwFVVmSKS2RjVoNSZd c2Tlduo4XoSev2WsdPTsYA gqN82dd777LMQweqPtW7zf bGFpblxwbGFpblxmMFxmcz C7ULOgGKpwanieHSKaJMge X8rgQbEvJBDohRriTQwnb6 NoXGYxXGZzMjJcdGFiXHRh Ket7JWTzgGStYSOrEkNlT9 eckjtwPsTRGGIjv6jvS4hc oZOAgMZyD2SqLGmvgtWnPL wvYMhtMZUaMLY2PR91COxt KGJsrw34 CPT Code(s) (test code f9ykmBLwJXRmnKS7OmUyEG = 3357) Trs3mjx7BcdVLapOOoXTvg dSNvrpJedg83sJB1jL94SV 2jDTThMbU3PYFdzbI5Ygn5 UTLdBJQbkFRlP826l9bhi3 gklyElsGB2yKgwXMMbXCRd YWluXGZzMjAgODgzMDUsID a0LmEvPCZ8OCS3GRr0XRQq cn0= CLINICAL HISTORY (test u0yvqFTxTNBnkFV1ZfFuLZ code = 3356) Ysr6woq0WdwKEyxKShGMed oDZgwqFmfz69iLN4zM92WN 1eCVVyIhJ9WTOvsqJ8Gqw8 SCBqFOScgGDjD205v4pqv3 roktKfjHE7aGreRAJjBEGe YWluXGZzMjAgTGVmdCBncm 5otjJojXR0U7unrM8qc16s csMvVIBqDHQ9DlDieTF1Qp EgeCAyIGNtIFxwYXJ9 SPECIMEN SOURCE (test f3vakWOwZVRksMF7QoXjDP code = 3377) Fhx8ibn1HxyGOomLRtWGmw aTLsvnQbkf10gZC7lQ42WO 5yAFMnRyG7TVHsvxB5Blv9 ZVTjFERjvQAqF855t0jzu2 jnkgYctCR9jEkgHGYtJWVd YWluXGZzMjAgTGVmdCBncm 4mub8seXjitMFgTMEglYZw fQ== GROSS DESCRIPTION (test a4orpRDqEGJtsLHvXtKqAD code = 3366) IuTVQey6enMNVyrAFlXlBn MzNcZnRuYmpcdWMxXGRlZm Xys4xpr145lEByl2puPBPB ddebbQi0l4cvWVOdZaO0zX LcGOxuY3hkwmHdtIQtHFVq VNj5sB92FEFcmZ2fmMZyYN brtaNkMzB9WJbqRXHpMkI7 RDDprZAoTPEwX8csNNFtJU kyGHQwOFevaSJfHUM3nTsq i2A8kYEghYQzpWejWbGiKs OzEYPDm5EaFWw8cAotL7Xi HYGoQdH0gFNhSGTiVKlfAL CfIDDvmgY5zK55AFhvppE9 gAUsg7Bci24fu586lP6axE TmJWM2DONnMNKobCEoKMYw HXV1VYVyzSJmF1l9LiTlrA EdD8F5XbRrxVXzQ2K5SiZg dYMfD6O9EyRyjFXiKUPcuB AeUo8ckPJmcYDunq8hyq21 PUD8l4LwjAmfJLC2KBI1Gv HqFp0ufRKsZCIwUUKzlNVt GPHjHU9owGZmTVYvxQ5utk xjXHBnYnJkcmhlYWRccGdi rlOmBv7ieVrkQBQ9TFswA4 lyvC0gHeF7IEvgG3iczS8e BWl0DXnatIQ7PSCndE3cVE 2eenbkk5bpZtBkLS0uiscx k8mnGwUxCE7ezim0x7voWs XzTG4huabhk6zgZtGvTCcn SMWppebjHTNzk3DogrgeNP Zac7GoU3RiaIqkZ84vnTzf A74xOBDikTtoeQ8ipLfcsK 5cZjBcZnMyNFxwYXJkXHBs YWluXGYxXGZzMjBcbGFuZz EwMzNcaGljaFxmMVxkYmNo YCLaMAvoF1snBpSrYyXsYN BBLiBSZWNlaXZlZCBpbiBm l3OjOTcaieOgGBNozATzUI dpdGggdGhlIHBhdGllbnRc X5H3ehOqVS8dLTTzMCDvC3 LtLYMiU42rWYFczL2rRUVp SA7zDXAkry7aarcaqXQesE DhTY3hGKNvijVse4TzTH5c MA06iCMwgHriYOamVRluf0 kehMHhn93lyEW5wSXtsZKn Q22fDKVoafKnG1ruTjEtXv DtOA0hYJKmAYoqDLhuesy2 aVTxvNQdyJK4QKVcrO4hmF 98dgMgckQDOJ7jiCtgAEpt sF9eVXAcHZmgUWPtY2FcuQ 3fLS8KGlgdTDObOKLSU0Is J08rtEDvhC== MICROSCOPIC DESCRIPTION z3dtlTUgSDJdrLT5HoLaWX (test code = 3371) Pru9zrf4FsgWGwaMPyMOwu qWGtayWwnv82sYD1rJ96EL 7tCZYzJrT1TRRffdY1Zhm5 LOAoIZIdrKAsE931t7wav1 akcmCgpLR9mLhuAXHkSYHi VEfnYGPbLmJsDMMBZw3WHW VEXHBhcn0= SPECIAL STUDIES (test l0vhuZPgJYPziNN8ImOzBP code = 3376) Vou3kys4VooEAusDVhKYbo tNEnimWqlx91vHE5nW91EY 0dWGXlYtT8GKVumcF8Gbz4 GICgGESnhXBpF042ZGYkMA PibBuojgg0aI18TRBdpQ9l fCMzSLe4APMesaRgcRyjtN 6xVvDxUcZuYoVGoPBeaN01 NBNqjxD5AWRae36xm9GxfY tmrrUsQLIpSBpiA1k6UDFd KSViCHS0c4Wlu1OtgE9ypE 6twToytN8gpRVfeYA1xnlc f0Evc7DdR6fdaHAluBErnw BgGRIjgvENJG7CIaDYSC9c J5ZNGFDQMurmLnYqMQpjVN NKWFhHVQYUPJK8DZFZDPRl SXYJDSepROCxB69nbSEmqC BTbGlkZXMgRXhhbWluZWQ6 AFPUpg7aw5JzGWGijt88rf Hrl3VlgLc6WNTos051lt4s qhL3ZVJdKDZ6QPb7EEHjBZ GduR2sRiY3oRWeASZpSTC5 SGK5YJWiq7L2NR3tDCDsLW LcZPUytzUfl3bpz4qiQNOp ILL6onSyjT6yS4EyUVDkt9 YgdGhlIHBhdGllbnRzIHNh cIXjEBSyzH20OWKqgRQjoP SuROFaDTY2IPrhkS0fXuZA mjDeup1boZMnn5CfeJh0JK DlthEfafSnZOFiflJnY12n jXRnxZUen3hqpxDlkpLhgL NajMMrKEFrCGG4SRz2IKWw KTpfZOLqUNyxQDWwIR8meE 5yeDzoyE2ouRLcfKN9imag oVFqiT3dM7QnTUXqh4Phtx ecm1LlGIXefdJgqo7vWREr dEAJWBtgk6LtC3OeIFz2j5 XjaYvyPMarKVa8IvEwLIAx fGTjbFLEQB40YMSiHIXxoV lqqC6txSHEABYgwuU2n5Z8 MDwbHHRbWBe4IDttetSmVU TqzP1sPMKpQB7lALf4ixCu NGJoa6HpRJ5iGNUqnRNjRH L7YIQan9PhI3Mwu9InULJc KFWaqq0wegLoKxLSzKHcHP Zvuf27PEGtDK2jD5gkZZVk BNNxehMgnXXtr8ZkDCVyrT N6hFUzQR2CNoHYt17aGIZr CMYPirYkNEQyyZuhgVX9la X7tZ6jNkJJzHUaNyXYXGod vzNbPQRorc9hvoEhKPFtPG Dbp3OmbEGwbEDfiqVzB5Zw k2NtWYLrci84QUpsuMIlzj 14EG9dS9Ptn2OayV4wQNpz EKSsl5BpsDVbhOYaYBSfg0 ZzO9jjjburLNrexQKzjD5u NGUsRPh9QRHbk2NzWUCpz3 QgYmUgcmVnYXJkZWQgYXMg uV11LRV4qXgxqCxqsrGeAW 4qQPGwsnPcJGJqDLZrmQ0j FWlyljShRFDbmoN1r9K2XZ rsUWDqxtZlPsqtATG8odTv faM9jXXsN9jbouwlQNgsUI Gck1ZsnK0okZXFlIRfs3Yp iDGsdWYRdNMnXX9whpEnOI 1qKTA3TBowLFOBHKLoZTsm ZCJmRPD1TKptFnbtBXP0sn NlCGJhz7ZmSBdjH2vxC15e rGqrqAq0fREnmFlmnWXrcT DkUGExriL6c3F5EQRmw8Md bmcuXHBhcn0= Gross assessment was [facility] performed at ([facility], = 2777) Department of Pathology, [address] [place] [address], Technical component was [facility] performed at ([facility], = 2778) Department of Pathology, [address] [place], [place] [id number], Professional component [facility] was performed at ([facility], code = 2779) Department of Pathology, [address] [place] [address], [facility] Center[facility] [id number] 10:56:00 Test Item Value Reference Range Interpretation Comments Case Report (test code Surgical Pathology = 104) Report Case: [id number] Authorizing Provider: Vandana Tejada MD Collected: 08/31/2020 06:37 PM Ordering Location: [address] Received: 09/01/2020 08:13 AM Service Pathologist: Thien Radford MD Specimen: Groin, Left, left iliopsoas mass biopsy ADDENDUM (test code = [id number] 3381) Ita3skp6WluIRakZVlCQma lCYzdeJpgr51bFW6hZ59LR 1eTGKzTjA0CORviiQ4Jhj7 RKWaTWHjxYCaQ427g0ldv6 exohOmfOS8vKpaDCAwVDQd DPcgXTYbPmGyDV3mvX2fjY nxrY0ecDDpbSPozYCluEDb qVYbQVEqkpJsdc5kHSKxck TubU3uzxPEFCAoPM2opkF2 arW5JLK2tEYuocVsxLiqh9 LvUtHnMLqietF4hfPbARAp t2EhzQm2EULkj3XeW1BwYY 4gVGhleSBhcmUgbmVnYXRp guMuOz6eNXasmfP8aP6yKU GzYKRwYIJdg03nalsvLO3A OTMwxQ7kcWgxjATmZ3cnDD FjdGluIChTTUEpLCBNVUM0 AHVeuxYdA1JEVAHdYQRew3 jfVwErUNDezsTesJ3wKLsl OmltY3yzEzbioPGpxhOxlX FibGUsIHJhbmdpbmcgZnJv cJVqQHC9xpK2FDBcGDxeHS XgqEGlJARqYYDlZW8mzSEb dGljIGNlbGxzIHByZXNlbn EsIEYfg59mbQRtzNYizEu0 p2mqYGQdEHI7hdYlATBpWC GjSTUlZQRrbTNgRZ5vZFYt ZWQgbnVjbGVpLiBUaGVyZS GtqpXtzd1wfxMbTTptgTVh ebNjzKHivPFtpYo7g8IqHf GnsPb2ktVxZLCrPKErysTo VAora2H6SLWawNqsgzQypQ YvFN8xDYOtVHGoZvFjRHSt x4Yrjp0saNSnUWKsyoNPff FrVNusNVA3dFIrbkD1gRIa TU9yTKQaBDRkGGPst08czK JwyO4uLJEhhj4pqzH0XLAs a4iwntUhLTmeOICigk3aRB HduZ2cYxEmeDPmfNssLI87 LlxwYXJccGFyIFRoaXMgY2 XhAYY3zMfjVIQsWSPkUeVt kvKdJPYpER3XZJOkUWWqy1 1jPICtppIlm90yuVk3SLGd r41rQZItCPWuCNSuVRZkXX FwkE3cdWB4kDnoNMIalNlr xq8ohPAePCQmmjQIqnNxEC SteSNqxU3xecNvhPYtMCNw ZPj6NKIoHkEWuH8uEOUnLG 8aI1fqKCfoxvsqKYL3 DIAGNOSIS (test code = x8cvaMTbOHUbk8miYJGncM 3220) FuZzEwMzNcZnRuYmpcdWMx IHtccnRmMVxlcGljOTIwMl dklpHdTOMarHVhX7Uiovsw LLyiWM4hZR1jnSlapSUzsP YeIQJgHhSoq9yli535kKRe p2anPNMTjegvwIy8hQaaJ2 5bu3O9BqxpE82ywFKzYBed bGFpblxmczIwIFBBUlQgQS EQVOOFIXeBFS8NK64YIqPA PXYJJUOVYA9BD0k7MGLnoo BTUElORExFIENFTEwgTkVP DXbFJ41aBMPgnvTLEI5FPE BJTlRFUlBSRVRBVElPTiBQ EI7IPI7MDNqEVJOIR2ZMOR 2CITdDET8TYadmZGMqWLAB RQ6HVK0tDiYNX8WXYLHSKF CJRZcYOc1yDYXave77BSC6 TsWhk6K5UEJ6HLZlPDAnd6 lcZGVmbGFuZzEwMzNcZnRu UyussIGvNOYxHhZpc2zwi2 75dUQil1pvTCSnZcZ5ePBk SUApmIAjZ677EWFcYEcah9 wni6WtDJWaeBLpn5Z6VHYQ nvkotBo3dVuqN29dz9V9Ts ewI3bhQKFkGSOvJ7LpAT0l KQUbMnb5ENM3XHC5JOXdHG EiH9FqDH6aTLQglACiKWb3 p9cziBzqRNHrRWF1q4tvVN dduuAgVR4eqj5ehZp3s9vr czEgRGVmYXVsdCBQYXJhZ3 CoeCzuOe6skOo6iKhvKart BTJ8Wic8ZM3kfc45lkj4nP vnCIWdtzngVgI7ILehSUTl duyqGLn0SUwnDTRlkZU0YI UplTZsW3KxSWOvFD5uwya5 BLI6RHptOQEmHcQ9JVKxfU PbOLPkeNolWJwyw683JKE2 HqJjSZ1zF7Sgk8V5bI1veR KsPCDadRJfYhFuAAKxvt0i uXPmFZuad6HhXSF0npV2pB MvfGRwEBPaXmD8TXfrQK9h pf93BXLrKAN9hu5vpXMgiC ercgDpfMOzEEdcD9PcKIUy c508RLNtE8CeQUZbk8N8jc RoLdRaDIHzaKC6dpK0DDLe QP7salpkn5vcNZueCHixOP UjbnP7hoG5WGSvcSStV5Bw fL1bOGVtCO5jivwxs7osZT U3XSsdFTOdAKA1GaMjEVTs h6Dtdbk6YgNqw7NvtYQvUN kxV58yk270DSRbfzZeX0yn bGFpblxwbGFpblxmMFxmcz O9NDUdDPxyzfffIXAmHTga U5mnGxOnQVIisTdmSZqze2 NoXGYxXGZzMjJcdGFiXHRh Lxg3NQBueLYtJUItHgRhX4 bnpymgMxSEABAmy9tqE4ol iIGExPFaT7JqYImpyrEwTU xdKEcyEGHwOUT3RS63ZEmo SCQzzw42 CPT Code(s) (test code w9nwnEAaJNCdiJR4JmBbAC = 3357) Mrq4ntf0FcjEVtcSRrXOgw nPCdipIqva53zPS2aW82BL 2rOLLfOpZ4SDLzbcU3Rvl3 COHhYAQzuQQqF027l9vff4 hlxyLbxJI1iLmsFNWfEDSv YWluXGZzMjAgODgzMDUsID v2YhDmBGP9OBH6XGl8KNHg cn0= CLINICAL HISTORY (test z2vcvCKlMEXdrWS7LuChYM code = 3356) Kjo3pvs9OxzFHmsDPoTTnp wRTowmLfbh26iRZ6kP30KR 4wCNZhGfO9NNFkooD1Htz5 HPFiVQRrhYZaK382n7nga0 btqhIcyCD1cHxiVWYcZITi YWluXGZzMjAgTGVmdCBn 0lcmMnePN7B4dzcR2ft89v wzHoLASjGWK2JaFngSQ9Lr EgeCAyIGNtIFxwYXJ9 SPECIMEN SOURCE (test y9dhiRMaKQIeiAG9QwTrNK code = 3377) Iic3zhg5ZnsERurIHdRXuk gPSqrrOruc61mDX4fI49VC 1fMNVeXqW7DIJjdyW8Lsp3 PFJvCNWmhSSfA433t9aaa8 tqdjWbiRR2pAzbGECsNGXo YWluXGZzMjAgTGVmdCBncm 5fsk8prQovpZUxJZJmuLMr fQ== GROSS DESCRIPTION (test z2fbaGLvMLLikZVaYcErIE code = 3366) AhDZTvz1klPSBaeTRzOtEx MzNcZnRuYmpcdWMxXGRlZm Jfw1flm276mRIku6kcEVQH woxbrFu1m5doSNScBiS2lL WxOXtaD9xnncZqyQMyKTCy DRc3fU76BGPqtY2gyHSiAC ltcrWkTiM4GNaqHTDdXrQ6 BHFddUSsZGEtU6gcRPAzPM fpQAQpUIhhxVBeZVN4yXgu w5T0pZUpkVFacIqaFmNdLh MqAJPLw9UlPLq2cRfzX7Av XMYgZuG2iMChJQArAFtxQO DsMZFtoaR9fI31NNncjvP1 nRWif0Emi38zf464zE9nkE WmTCL6YABrNQAguGNfKQHm GPG7MEUqwRVdA6p2AzQmoV LsD9A4QvHtbHHuC8F5KjUh dYTeX4D3IoDtiXSgUZMluZ IgQn6mhKIrxHBcpd9exr88 HUM9k2VarMcsZKI5HQC8Yp CwXn6vqDOsAJYrBRFdcXTf YSLtBG8ktCOlFMWltL1rus xjXHBnYnJkcmhlYWRccGdi zwOrVr3biHqqSBP6ZJteZ9 xgiF8dYdO4PFlzM9dneR8n QCc8DZsujNF9CKEmkZ2kOF 7yaiele3xuTpJeFV0tzvog b6hhHkKpAL3rcos1l5ybJa VaLV6nbjglb5npHnUxVCnn CTVowcvyPPIhb8KbegldLY Psr7GgN2YeiOtgH71svCqq Z01eSJZlwQaukD3dpJoedQ 5cZjBcZnMyNFxwYXJkXHBs YWluXGYxXGZzMjBcbGFuZz EwMzNcaGljaFxmMVxkYmNo SYOdLCxiL7hxTxHuBaBtFV BBLiBSZWNlaXZlZCBpbiBm v1NjOJuswgRuCJVzoWQdYF dpdGggdGhlIHBhdGllbnRc C6B6wnItJI7tYTCyABPpQ7 FdAUNnU17iTQXubN7vNSKw SP6gRCTbxb7vnprusIYtkG WkTC5wPYNkjfJrf4SiFN1b AF55gVOceVufAGglRPsvs0 jnoJPjf67joBX9nLBjfVFi W62kVMCzqfYxG3yfDzXuQs VaTC7kGYTrTFvwXAirngg2 qSQklBEvtAF1ZDJnrE5xaO 17ayHxfzGWBW1noIhiDSrq qS1dVZKyBAydPEBvF6QokK 0kEI0AZcekJEUbJWJXF9Lq V85acQPipZ== MICROSCOPIC DESCRIPTION t6ynnHJkIZPqhVF3TkWnBN (test code = 3371) Roi3sha5QydGVoiILvFSwe iDXikqRuwh53sUK8sT86QJ 2qUSSzZaM4UULthrV2Rin1 MJBfETVrbRTjL468y7pua9 fgodAwoBV4bLwaBNGnMCUn MItzIVSrYeRpGBTGDz0CKD VEXHBhcn0= SPECIAL STUDIES (test i3crnWAwEOQxhRF3ClIcYE code = 3376) Cvs7sei1BswQYiqKIkLGsk bDFynjQbcp93oHL5kI74DE 5pFORtDcQ7DURkifZ2Bff7 SSMdWNRncYUxU480HPUbDM EicYabblf4gC83RKPrrV6w kQBlIWf6LDKsolFndFeddA 0eWkRuSjIvEjSXrIQmkU63 ZFFxqpW0BSCow39ne8AonR hssqQwJCMdQAsbP0s0XKKh EKXhCUR4g1Kdk7RagR3nvG 3ubEcrrZ6qcMMkxJB0prum s1Ixy4UxV7cmvOJeqRKpob QrOIEvahCGZR9CZcJIDD3t A4VJZJESQecrXaHrXZyeTN JERIeGCUOQYTN6PDIUTOYu MPQMEHdfZNNaL57zoTQtzB BTbGlkZXMgRXhhbWluZWQ6 KGOHyg0bt6TkSLJelz64vt Fug1LlkNn6LZTbw583ku5c ymA5KRHmBDS8MWe6EMWvNU SpwP9aZaT2lLWhZTWsZRS5 JQU5YKGbh7F5LX3mZCKcVC WeZXZnavEog3otj2doZWHo NSX2zqLgxB9qP3SiNSVfa6 YgdGhlIHBhdGllbnRzIHNh wECnQKRewH82ZNVedJAhuI KsWTMhIPG2RJeppI9jXvRF ytTqwi6hgBWpf4ZvmWc3SC GlirXweoZnICYjfyEgL13o pVFxsUAmo6vfvrItdyAhnG QtbGXnEPXwWQG5EGx0ASZk TMzzLBZwKUmdBEKmOL4bpO 9ywPpljX8paJEzeZJ6zdsm rLOomG1kS5LlKFNjj1Wowl sor3SrCRBxwdThcv2fTDZa xIYKMDmhv6IdD0OyIZo4z2 WnvXqcDIaqNUn3IcTcACYf sMXrwWUPCY88BFYhPIXysY nvdJ3edYKICTRzweJ0g9T7 DZnrTDXbFYa8GMfbysTkDD MvbD9rRUKtCI0eBOa8swAk IYFjh2RtOX0yYPGrwTFlOL D3ITZyx1OpM6Hsp1FfCBSf IYDgod8ydmMzBxJZdDOmQC Kfeb32PFNrZS8yX3hrCNDr OGIcolYgaUSyl8GxCOLyjB R8mSUgSB6MJoPCr44sOZRe NUBVgfMkPZJhxLmjeGC2wb S6wT6iYxTBqWSvQtGQDFpb jmEpOURuav3jxoWeSPUbZS Vwo4ZmjZDthDNdeyYpH3Js a5GsQHFprh48YKfejQVuuz 77KK8jR3Zsm7OhaR6aGBlm QGMbk4OjvWBpfTEnOEYoj1 QpE7rnpuvtPCdysZZfgQ0j FBRsBDn2BPJyy7YjVXKjm0 QgYmUgcmVnYXJkZWQgYXMg nR88NJQ9aObqfWxpljYjIN 2xPOIuviNvRHFjYBHppH1x WGxkkuTfAMYsxgH5z4T6DY suDOZulzEcJsokLGO2fjPw jeG4uISvN3ufkdwkGJioDG Fhx3HseQ9rvJYSgWUos4Tr oVBkzLZGoUXjAC9jdaTkBI 6dTEX2BTmgNYFLWDDvBYyx ASDcEPV7GRzgHwhuMUT3rd AyLGAkc3GbYOscI6twL46q bUijkGo2fKCurBzwwTXmlH UjEDMaqiR3m6D6RMJgg7On bmcuXHBhcn0= Gross assessment was [facility] performed at ([facility]ly [facility], = 2777) Department of Pathology, [address] [place] [address], Technical component was [facility] performed at ([facility]ly [facility], = 2778) Department of Pathology, [address] [place] [address], Professional component [facility] was performed at ([facility], code = 2779) Department of Pathology, [address] [place] [address], [facility] Center[facility] [id number] 10:56:00Surgical Pathology Report Case: [id number] Authorizing Provider: Vandana Tejada MD Collected: 08/31/2020 06:37 PM Ordering Location: [address] Received: 09/01/2020 08:13 AM Service Pathologist: [...] REPORT TO FOLLOW. Signing Pathologist Direct PhoneLine: [phone] signed by Thien Radford MD on 09/01/2020 at 3:59 [id number], [id number] groin cyst/iliopsoas mass, 6.3 x 6.1 x 2 cm Left groin/iliopsoasA. Received in formalin labeled with the patient's name, medical record number and "groin, left" and consists of multiple urias-white soft tissue cores ranging 0.2-1.2 cm in [...] evaluated Immunohistochemistry technical testing was performed at [facility], Pathology Laboratory where it was developed [...] to perform high complexity clinical la boratory testing.[facility], Department of Pathology, [address] [place] [address], [facility], [address] [place] [address], 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 Signed: Brie Smith Verified Date/Time: 09/05/2020 14:16:01 Reading Location: [address] Body Reading Room Electronically signed by: BRIE SMITH M.D. on09/05/2020 02:16 PMCT chest with IV [id number] 14:16:00Interface, External Ris In - 09/05/2020 2:18 [...] Right mid lobe subsegmental atelectasis. Signed: Brie Smithort Verified Date/Time: 09/05/2020 14:16:01 Reading Location: [facility] B1 C013Y CT [facility] 2020-09-05 14:16:00Interface, External Ris In - 09/05/2020 2:18 [...] mid lobe subsegmental atelectasis. Signed: Brie Smith MDRepcross[facility] Verified Date/Time: 09/05/2020 14:16:01 Reading Location: [facility] C013Y CT Body [facility] 2020-09-05 14:16:00Interface, External Ris In - 09/05/2020 2:18 [...] mid lobe subsegmental atelectasis. Signed: Brie Smith MDReport Verified Date/Time: 09/05/2020 14:16:01 Reading Location: 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 MARTA Be Interpreting Eduardo Roberts MD Fellow [...] Velocity: 2.81 m/s TR Gradient: 31.62 mmHg [facility] W/Doppler(CW/PW/Color)2020-09-05 09:47:35 Test Item Value Reference Range Interpretation Comments Ejection Fraction Est EF is 55-60% (test code = 2574) PXN (test code = Interface, External Ris In PXN) - 09/05/2020 9:47 AM CDTTransthorac Echocardiography Report (TTE) Demographics Patient Name DANIEL DEL VALLE Date of Study 09/05/2020 NEELAM Gender Female Visit Number [id number] Race Unknown Room Number 2146 Number Date of 1960 Referring Physician Vandana Tejada MD Age 60 year(s) 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 MARTA Be Interpreting Eduardo Roberts MD Fellow [...] Velocity: 2.81 m/s TR Gradient: 31.62 mmHg [facility] W/Doppler(CW/PW/Color)2020-09-05 09:47:35 Test Item Value Reference Range Interpretation Comments Ejection Fraction Est EF is 55-60% (test code = 2574) PXN (test code = Interface, External Ris In PXN) - 09/05/2020 9:47 AM CDTTransthoracic Echocardiography Report (TTE) Demographics Patient Name DANIEL DEL VALLE Date of Study 09/05/2020 DENYL Gender Female Visit Number [id number] Race Unknown Room Number 2146 Number Date of 1960 Referring Physician Vandana Tejada MD Age 60 year(s) 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 The reference range was not u sed to interpret th is result as normal/abnormal . Albumin (test code = 3.6 g/dL 3.5-5 90713-5) Alkaline Phosphatase 106 U/L 40-150 (test code = 6768-6) Total Bilirubin (test 0.2 mg/dL 0.2-1.2 code = 1974-) Sodium (test code = 139 meq/L 639-013 7733-2) Potassium (test code 4.7 meq/L 3.5-5.1 = 2823-3) Chloride (test code = 104 meq/L 98-107 5-0) CO2 (test code = 25 meq/L 22-29 8-9) BUN (test code = 10 mg/dL 7- 3094-0) Creatinine (test code 0.70 mg/dL 0.57-1.25 = 2160-0) Glucose (test code = 159 mg/dL 70-105 H 2345-7) Calcium (test code = 8.8 mg/dL 8.4-10.2 55066-5) AST (test code = 9 U/L 5-34 1920-8) ALT (test code = 13 U/L 6-55 1742-6) EGFR (test code = 103 mL/min/1.73 sq m [facility] [place] [address]-9) NOT ACCURATE CREATININE CLEARANCE IN PREDICTING GLOMERULAR FILTRATION RATE . ESTIMATED GFR I S NOT APPLICABLE FOR DIALYSIS PATIEN TS. JESSICA (test code = JESSICA) Fruit Thinner ID - BALA M Lab Interpretation Abnormal (test code = 88019-1) [facility] CenterComprehensive metabolic [id number] 07:34:00 Test Item Value Reference Range Interpretation Comments Protein, Total (test 7.5 See_Comment [Autom ated code = 2885-2) message] The system which generated this result transmit yumiko reference range : 6.0 - 8.3 gm/dL . The reference range was not u sed to interpret th is result as normal/abnormal . Albumin (test code = 3.6 g/dL 3.5-5 73200-5) Alkaline Phosphatase 106 U/L 40-150 (test code = 6768-6) Total Bilirubin (test 0.2 mg/dL 0.2-1.2 code = 1974-) Sodium (test code = 139 meq/L 853-316 9123-2) Potassium (test code 4.7 meq/L 3.5-5.1 = 2823-3) Chloride (test code = 104 meq/L 98-107 5-0) CO2 (test code = 25 meq/L 2027-11) BUN (test code = 10 mg/dL 10-04 3094-0) Creatinine (test code 0.70 mg/dL 0.57-1.25 = 2160-0) Glucose (test code = 159 mg/dL 70-105 H 2345-7) Calcium (test code = 8.8 mg/dL 8.4-10.2 50835-6) AST (test code = 9 U/L 34 1920-8) ALT (test code = 13 U/L 55 1742-6) EGFR (test code = 103 mL/min/1.73 [place] [address]-4) NOT ACCURATE CREATININE CLEARANCE IN PREDICTING GLOMERULAR FILTRATION RATE . ESTIMATED GFR I S NOT APPLICABLE FOR DIALYSIS PATIEN JESSICA (test code = JESSICA) Fruit Thinner ID - BALA M Lab Interpretation Abnormal (test code = 81370-1) [facility] CenterCom[facility] metabolic [id number] 07:34:00 Test Item Value Reference Range Interpretation Comments Protein, Total (test 7.5 See_Comment [Autom ated code = 2885-2) message] The system which generated this result transmit yumiko reference range : 6.0 - 8.3 gm/dL . The reference range was not u sed to interpret th is result as normal/abnormal . Albumin (test code = 3.6 g/dL 3.5-5 94641-6) Alkaline Phosphatase 106 U/L 40-150 (test code = 6768-6) Total Bilirubin (test 0.2 mg/dL 0.2-1.2 code = 1974-2) Sodium (test code = 139 meq/L 294-111 4275-2) Potassium (test code 4.7 meq/L 3.5-5.1 = 2823-3) Chloride (test code = 104 meq/L 98-107 2074-0) CO2 (test code = 25 meq/L 2027-11) BUN (test code = 10 mg/dL 10-04 3094-0) Creatinine (test code 0.70 mg/dL 0.57-1.25 = 2160-0) Glucose (test code = 159 mg/dL 70-105 H 2345-7) Calcium (test code = 8.8 mg/dL 8.4-10.2 97170-2) AST (test code = 9 U/L 5-34 1920-8) ALT (test code = 13 U/L 6-55 1742-6) EGFR (test code = 103 mL/min/1.73 [place] [address]-5) NOT ACCURATE CREATININE CLEARANCE IN PREDICTING GLOMERULAR FILTRATION RATE . ESTIMATED GFR I S NOT APPLICABLE FOR DIALYSIS PATIEN TS. JESSICA (test code = JESSICA) Fruit Thinner ID - BALA M Lab Interpretation Abnormal (test code = 38623-4) [facility] CenterCOMPREHENSIVE METABOLIC [id number] 07:34:00 Test Item Value Reference Range Interpretation [...] S NOT APPLICABLE FOR DIALYSIS PATIEN TS. Fruit Thinner ID - BALA MSARS-CoV2/RT-PCR (Asymptomatic ONLY)2020-09-04 12:52:00 Test Item Value Reference Range Interpretation Comments SARS-COV2/RT-PCR Negative Not Detected, (test code = Negative, See 92740-9) external report for linked test SARS-COV-2 [facility] PERFORMING LAB (test code = 64966-8) JESSICA (test code = Negative result for [...] of the Act. Fact Sheet for Healthcare Providers:https://www.TurboHeads.Lockstream/sites/default/f nito/product/documents/F act_Sheet_HC_Providers_L dwh_WQSL-HlF-6.pdf Fact Sheet for Healthcare Patients:https://www.SonoPlot.Lockstream/sites/default/fi les/product/documents/Fa ct_Sheet_Patients_Ly_S ARS-CoV-2.pdf Performing Laboratory:[facility] [place] [address] [facility] (Asymptomatic ONLY)2020-09-04 12:52:00 Test Item Value Reference Range Interpretation Comments SARS-COV2/RT-PCR Negative Not Detected, (test code = Negative, See 88127-7) external report for linked test SARS-COV-2 [facility] PERFORMING LAB (test code = 48403-6) JESSICA (test code = Negative result for [...] of the Act. Fact Sheet for Healthcare Providers:https://www.TurboHeads.Lockstream/sites/default/f nito/product/documents/F act_Sheet_HC_Providers_L jdr_KMNQ-LpY-4.pdf Fact Sheet for Healthcare Patients:https://www.SonoPlot.com/sites/default/fi les/product/documents/Fa ct_Sheet_Patients_Ly_S ARS-CoV-2.pdf Performing Laboratory:[facility] [place] [address] [facility] (Asymptomatic ONLY)2020-09-04 12:52:00 Test Item Value Reference Range Interpretation Comments SARS-COV2/RT-PCR Negative Not Detected, (test code = Negative, See 36490-9) external report for linked test SARS-COV-2 [facility] PERFORMING LAB (test code = 02595-8) JESSICA (test code = Negative result for [...] of the Act. Fact Sheet for Healthcare Providers:https://www.TempoIQ ideGenomed.Lockstream/sites/default/f nito/product/documents/F act_Sheet_HC_Providers_L srk_VEEE-UkV-1.pdf Fact Sheet for Healthcare Patients:https://www.Sofea/sites/default/fi les/product/documents/Fa ct_Sheet_Patients_Lyra_S ARS-CoV-2.pdf Performing Laboratory:[facility] [place] [address] [facility]ARS-COV2/[facility]-PCR ([facility])2020-09-04 12:52:00 Test Item Value Reference Range Interpretation Comments SARS-COV2/RT-PCR (test Negative Not Detected, Negative, code = 8859696) See external report for linked test SARS-COV-2 PERFORMING LAB [facility] (test code = 2280869) Negative result for this test determines that [...] 564(g) of the Act.Fact Sheet for Healthcare Providers:https://www.BrightSide Software/sites/default/files/product/documents/Fact_Shee g_KQ_Efgaqcrro_Lmmc_WKFP-ZlG-7.pdfFact Sheet for Healthcare Patients:https://www.BrightSide Software/sites/default/files/product/ documents/Vdoj_Fgvqz_Jvxhsqoy_Ipkc_ZJUD-RrJ-0.pdfPerforming Laboratory:[address] [address] with platelet count + automated [id number] 06:38:00 Test Item Value Reference Range Interpretation Comments WBC (test code = 6690-2) 11.4 See_Comment H [A utomated message] The system TestPlant generated this result transmitted ref erence range: 3.5 - 10 .5 K/L. The refe rence range was not u sed to interpret this result as normal/abnor mal. RBC (test code = 789-8) 4.35 See_Comment [Au tomated message] The system [employer] generated this result transmitted ref erence range: 3.93 - 5 .22 M/L. The refe rence range was not u sed to interpret this result as normal/abnor mal. MCHC (test code = 786-4) 28.0 See_Comment L [A utomated message] The system [employer] generated this result transmitted ref erence range: [...] See_Comment [Aut omated message] 777-3) The system [employer] generated this result transmitted ref erence range: 150 - 45 0 K/CU MM. The referen ce range was not u sed to interpret this result as normal/abnor mal. MPV (test code = 9.0 fL 9.4-12.3 L 32616-7) nRBC (test code = 413) 0 See_Comment [Aut omated message] The system [employer] generated this result transmitted ref erence range: [...] H [Aut omated message] 670) The system [employer] generated this result transmitted ref erence range: 1.56 - 6 .13 K/L. The refe rence range was not u sed to interpret this result as normal/abnor mal. # Lymphs (test code = 2.06 See_Comment [Auto mated message] 414) The system [employer] generated this result transmitted ref erence range: 1.18 - 3 .74 K/L. The refe rence range was not u sed to interpret this result as normal/abnor mal. # Monos (test code = 0.95 See_Comment H [Autom ated message] 415) The system [employer] generated this result transmitted ref erence range: 0.24 - 0 .36 K/L. The refe rence range was not u sed to interpret this result as normal/abnor mal. # Eos (test code = 416) 0.46 See_Comment H [Au tomated message] The system [employer] generated this result transmitted ref erence range: 0.04 - 0 .36 K/L. The refe rence range was not u sed to interpret this result as normal/abnor mal. # Baso (test code = 417) 0.03 See_Comment [A utomated message] The system [employer] generated this result transmitted ref erence range: 0.01 - 0 .08 K/L. The refe rence range was not u sed to interpret this result as normal/abnor mal. Immature 1 % 0-1 Granulocytes-Relative (test code = 2801) Lab Interpretation (test Abnormal code = 88879-9) [facility] with platelet count + automated [id number] 06:38:00 Test Item Value Reference Range Interpretation Comments WBC (test code = 6690-2) 11.4 See_Comment H [A utomated message] The system [employer] generated this result transmitted ref erence range: 3.5 - 10 .5 K/L. The refe rence range was not u sed to interpret this result as normal/abnor mal. RBC (test code = 789-8) 4.35 See_Comment [Au tomated message] The system [employer] generated this result transmitted ref erence range: 3.93 - 5 .22 M/L. The refe rence range was not u sed to interpret this result as normal/abnor mal. MCHC (test code = 786-4) 28.0 See_Comment L [A utomated message] The system [employer] generated this result transmitted ref erence range: [...] code = 350 See_Comment [Aut omated message] 737-3) The system [employer] generated this result transmitted ref erence range: 150 - 45 0 K/CU MM. The referen ce range was not u sed to interpret this result as normal/abnor mal. MPV (test code = 9.0 fL 9.4-12.3 L 42220-5) nRBC (test code = 413) 0 See_Comment [Aut omated message] The system [employer] generated this result transmitted ref erence range: [...] H [Aut omated message] 670) The system [employer] generated this result transmitted ref erence range: 1.56 - 6 .13 K/L. The refe rence range was not u sed to interpret this result as normal/abnor mal. # Lymphs (test code = 2.06 See_Comment [Auto mated message] 414) The system [employer] generated this result transmitted ref erence range: 1.18 - 3 .74 K/L. The refe rence range was not u sed to interpret this result as normal/abnor mal. # Monos (test code = 0.95 See_Comment H [Autom ated message] 415) The system [employer] generated this result transmitted ref erence range: 0.24 - 0 .36 K/L. The refe rence range was not u sed to interpret this result as normal/abnor mal. # Eos (test code = 416) 0.46 See_Comment H [Au tomated message] The system [employer] generated this result transmitted ref erence range: 0.04 - 0 .36 K/L. The refe rence range was not u sed to interpret this result as normal/abnor mal. # Baso (test code = 417) 0.03 See_Comment [A utomated message] The system [employer] generated this result transmitted ref erence range: 0.01 - 0 .08 K/L. The refe rence range was not u sed to interpret this result as normal/abnor mal. Immature 1 % 0-1 Granulocytes-Relative (test code = 2801) Lab Interpretation (test Abnormal code = 39099-0) [facility] with platelet count + automated [id number] 06:38:00 Test Item Value Reference Range Interpretation Comments WBC (test code = 6690-2) 11.4 See_Comment H [A utomated message] The system [employer] generated this result transmitted ref erence range: 3.5 - 10 .5 K/L. The refe rence range was not u sed to interpret this result as normal/abnor mal. RBC (test code = 789-8) 4.35 See_Comment [Au tomated message] The system [employer] generated this result transmitted ref erence range: 3.93 - 5 .22 M/L. The refe rence range was not u sed to interpret this result as normal/abnor mal. MCHC (test code = 786-4) 28.0 See_Comment L [A utomated message] The system [employer] generated this result transmitted ref erence range: [...] See_Comment [Aut omated message] 777-3) The system [employer] generated this result transmitted ref erence range: 150 - 45 0 K/CU MM. The referen ce range was not u sed to interpret this result as normal/abnor mal. MPV (test code = 9.0 fL 9.4-12.3 L 47755-9) nRBC (test code = 413) 0 See_Comment [Aut omated message] The system [employer] generated this result transmitted ref erence range: [...] H [Aut omated message] 670) The system [employer] generated this result transmitted ref erence range: 1.56 - 6 .13 K/L. The refe rence range was not u sed to interpret this result as normal/abnor mal. # Lymphs (test code = 2.06 See_Comment [Auto mated message] 414) The system [employer] generated this result transmitted ref erence range: 1.18 - 3 .74 K/L. The refe rence range was not u sed to interpret this result as normal/abnor mal. # Monos (test code = 0.95 See_Comment H [Autom ated message] 415) The system [employer] generated this result transmitted ref erence range: 0.24 - 0 .36 K/L. The refe rence range was not u sed to interpret this result as normal/abnor mal. # Eos (test code = 416) 0.46 See_Comment H [Au tomated message] The system [employer] generated this result transmitted ref erence range: 0.04 - 0 .36 K/L. The refe rence range was not u sed to interpret this result as normal/abnor mal. # Baso (test code = 417) 0.03 See_Comment [A utomated message] The system [employer] generated this result transmitted ref erence range: 0.01 - 0 .08 K/L. The refe rence range was not u sed to interpret this result as normal/abnor mal. Immature 1 % 0-1 Granulocytes-Relative (test code = 2801) Lab Interpretation (test Abnormal code = 43695-5) [facility] W/PLT COUNT & AUTO [id number] 06:38:00 Test Item Value Reference Range Interpretation [...] PERCENT (BEAKER) (test code = 2801) Prothrombin time/[id number] 05:07:00 Test Item Value Reference Interpretation Comments [...] valves. Lab Interpretation Abnormal (test code = 72625-3) [facility] CenterProthrombin time/[id number] 05:07:00 Test Item Value Reference Interpretation Comments [...] valves. Lab Interpretation Abnormal (test code = 81118-6) [facility] CenterProthrombin time/[id number] 05:07:00 Test Item Value Reference Interpretation Comments [...] valves. Lab Interpretation Abnormal (test code = 44609-2) [facility] CenterPROTHROMBIN TIME/[id number] 05:07:00 Test Item Value Reference Range Interpretation Comments PROTIME (BEAKER) 19.2 seconds 11.9-14.2 H (test code = 759) INR (BEAKER) (test 1.64 See_Comment [Automat ed message] code = 370) The system [employer] generated this result transmitted ref erence range: [...] See_Comment H [A utomated message] The system [employer] generated this result transmitted ref erence range: 3.5 - 10 .5 K/L. The refe rence range was not u sed to interpret this result as normal/abnor mal. RBC (test code = 789-8) 4.36 See_Comment [Au tomated message] The system [employer] generated this result transmitted ref erence range: 3.93 - 5 .22 M/L. The refe rence range was not u sed to interpret this result as normal/abnor mal. MCHC (test code = 786-4) 28.6 See_Comment L [A utomated message] The system [employer] generated this result transmitted ref erence range: [...] See_Comment [Aut omated message] 777-3) The system [employer] generated this result transmitted ref erence range: 150 - 45 0 K/CU MM. The referen ce range was not u sed to interpret this result as normal/abnor mal. MPV (test code = 8.9 fL 9.4-12.3 L 05978-9) nRBC (test code = 413) 0 See_Comment [Aut omated message] The system [employer] generated this result transmitted ref erence range: 0 - 0 /1 00 WBC. The refere nce range was not u sed to interpret this result as normal/abnor mal. Lab Interpretation (test Abnormal code = 35932-8) [facility]Hemogram only)2020-09-02 04:59:00 Test Item Value Reference Range Interpretation Comments WBC (test code = 6690-2) 10.9 See_Comment H [A utomated message] The system [employer] generated this result transmitted ref erence range: 3.5 - 10 .5 K/L. The refe rence range was not u sed to interpret this result as normal/abnor mal. RBC (test code = 789-8) 4.36 See_Comment [Au tomated message] The system [employer] generated this result transmitted ref erence range: 3.93 - 5 .22 M/L. The refe rence range was not u sed to interpret this result as normal/abnor mal. MCHC (test code = 786-4) 28.6 See_Comment L [A utomated message] The system [employer] generated this result transmitted ref erence range: [...] See_Comment [Aut omated message] 777-3) The system [employer] generated this result transmitted ref erence range: 150 - 45 0 K/CU MM. The referen ce range was not u sed to interpret this result as normal/abnor mal. MPV (test code = 8.9 fL 9.4-12.3 L 31728-1) nRBC (test code = 413) 0 See_Comment [Aut omated message] The system [employer] generated this result transmitted ref erence range: 0 - 0 /1 00 WBC. The refere nce range was not u sed to interpret this result as normal/abnor mal. Lab Interpretation (test Abnormal code = 87031-9) [facility]02 04:59:00 Test Item Value Reference Range Interpretation Comments WBC (test code = 6690-2) 10.9 See_Comment H [A utomated message] The system [employer] generated this result transmitted ref erence range: 3.5 - 10 .5 K/L. The refe rence range was not u sed to interpret this result as normal/abnor mal. RBC (test code = 789-8) 4.36 See_Comment [Au tomated message] The system [employer] generated this result transmitted ref erence range: 3.93 - 5 .22 M/L. The refe rence range was not u sed to interpret this result as normal/abnor mal. MCHC (test code = 786-4) 28.6 See_Comment L [A utomated message] The system [employer] generated this result transmitted ref erence range: [...] See_Comment [Aut omated message] 777-3) The system [employer] generated this result transmitted ref erence range: 150 - 45 0 K/CU MM. The referen ce range was not u sed to interpret this result as normal/abnor mal. MPV (test code = 8.9 fL 9.4-12.3 L 84433-0) nRBC (test code = 413) 0 See_Comment [Aut omated message] The system [employer] generated this result transmitted ref erence range: 0 - 0 /1 00 WBC. The refere nce range was not u sed to interpret this result as normal/abnor mal. Lab Interpretation (test Abnormal code = 10919-7) [facility] (HEMOGRAM ONLY)2020-09-02 04:59:00 Test Item [...] (BEAKER) (test code = 413) U/S, CORE [id number] 08:58:00Reason for exam:->BIOPSY LEFT ILIOPSOAS MASS US VS CT GUIDED [facility]ENTER[facility]: DANIEL DEL VALLE : 1960 Sex: FFINAL REPORT Procedure: Ultrasound-Guided left iliopsoas/inguinal mass core biopsy Pre/post-procedure diagnosis: Left iliopsoas/inguinal mass Extrusion Supervisor: Abdirahman Chopra MD Assistants: none Sedation: Moderate [...] MDReport Verified Date/Time: 09/01/2020 08:58:59 Reading Location: [facility] Diagnostic Imaging Reading Room [place] [address] 1.310.12 US Core [id number] 08:58:00Interface, External Ris In - 09/01/2020 9:01 AM CDTFINAL REPORT Procedure: Ultrasound-Guided left iliopsoas/inguinal mass core biopsy Pre/post-procedure diagnosis: Left iliopsoas /inguinal mass Extrusion Supervisor: Abdirahman Chopra MD Assistants: none Sedation: Moderate [...] MDReport Verified Date/Time: 09/01/2020 08:58:59 Reading Location: [facility] Diagnostic Imaging Reading Room - [facility] 1.310.12 [facility] 2020-09-01 08:58:00Interface, External Ris In - 09/01/2020 9:01 AM CDTFINAL REPORT Procedure: Ultrasound-Guided left iliopsoas/inguinal mass core biopsy Pre/post-procedure diagnosis: Left iliopsoas /inguinal mass Extrusion Supervisor: Abdirahman Chopra MD Assistants: none Sedation: Moderate [...] MDReport Verified Date/Time: 09/01/2020 08:58:59 Reading Location: [facility] Diagnostic Imaging Reading Room - [facility] 1.310.12 [facility] Biopsy 2020-09-01 08:58:00Interface, External Ris In - 09/01/2020 9:01 AM CDTFINAL REPORT Procedure: Ultrasound-Guided left iliopsoas/inguinal mass core biopsy Pre/post-procedure diagnosis: Left iliopsoas /inguinal mass Extrusion Supervisor: Abdirahman Chopra MD Assistants: none Sedation: Moderate [...] MDReport Verified Date/Time: 09/01/2020 08:58:59 Reading Location: [facility] Diagnostic Imaging Reading Room - [facility] 1.310.12 [facility] ONLY)2020-09-01 05:07:00 Test Item Value Reference [...] 0-0 (BEAKER) (test code = 413) PROTHROMBIN TIME/[id number] 04:44:00 Test Item Value Reference Range Interpretation Comments PROTIME (BEAKER) 19.1 seconds 11.9-14.2 H (test code = 759) INR (BEAKER) (test 1.63 See_Comment [Automat ed message] code = 370) The system [employer] generated this result transmitted ref erence range: <=5.90. The reference range was not used to int erpret this result as normal/abnormal . RECOMMENDED COUMADIN/WARFARIN INR THERAPY RANGESSTANDARD DOSE: 2.0 - 3.0 Includes: PROPHYLAXIS forvenous thrombosis, systemic embolization; TREATMENT for venous thrombosis and/or pulmonary embolus.HIGH RISK: Target INR is 2.5-3.5 for patients with mechanical heart valves.Vitamin B12 and [id number] 06:16:00 Test Item Value Reference Range Interpretation Comments Vitamin B12 (test 327 pg/mL 213-816 code = 2132-9) Folate (test code = 3.70 ng/mL See_Comment L [Automa yumiko 2284-8) message] The system which generated this result transmit yumiko reference range : >=7.00. The reference range was not used to interpret this result as normal/abnormal . JESSICA (test code = JESSICA) Fruit Thinner ID - BALA Hernandez Lab Interpretation Abnormal (test code = 01136-3) [facility] and [id number] 06:16:00 Test Item Value Reference Range Interpretation Comments Vitamin B12 (test 327 pg/mL 213-816 code = 2132-9) Folate (test code = 3.70 ng/mL See_Comment L [Automa yumiko 2284-8) message] The system which generated this result transmit yumiko reference range : >=7.00. The reference range was not used to interpret this result as normal/abnormal . JESSICA (test code = JESSICA) Fruit Thinner ID - BALA Hernandez Lab Interpretation Abnormal (test code = 20551-1) [facility] CenterVit[facility] B12 and [id number] 06:16:00 Test Item Value Reference Range Interpretation Comments Vitamin B12 (test 327 pg/mL 213-816 code = 2132-9) Folate (test code = 3.70 ng/mL See_Comment L [Automa yumiko 2284-8) message] The system which generated this result transmit yumiko reference range : >=7.00. The reference range was not used to interpret this result as normal/abnormal . JESSICA (test code = JESSICA) Fruit Thinner ID - BALA Hernandez Lab Interpretation Abnormal (test code = 53044-8) [facility] CenterVITAMIN B12 AND [id number] 06:16:00 Test Item Value Reference Range Interpretation Comments VITAMIN B12 (BEAKER) 327 pg/mL 213-816 (test code = 774) FOLATE (BEAKER) 3.70 ng/mL See_Comment L [Automated message] (test code = 362) The system which generated this result transmitted ref erence range: >=7.00. The reference range was not used to interpr et this result as normal/abnormal . Fruit Thinner ID - BALA MPROTHROMBIN TIME/[id number] 05:36:00 Test Item Value Reference Range Interpretation Comments PROTIME (BEAKER) 21.8 seconds 11.9-14.2 H (test code = 759) INR (BEAKER) (test 1.92 See_Comment [Automat ed message] code = 370) The system [employer] generated this result transmitted ref erence range: [...] 0-0 (BEAKER) (test code = 413) CT, [id number] 11:32:00Unlisted Reason for Exam - Click Yes and Enter Reason Below->NoWill this procedure require oral contrast?->No [facility] 1960 Sex: [...] size and patent. Right lower extremity: The PROJ ENGINEER, DFA, SFA, and popliteal arteries are patent. Trifurcation vessels are patent. Left lower extremity: The PROJ ENGINEER, DFA, SFA, and popliteal arteries are patent. [...] MDReport Verified Date/Time: 08/30/2020 11:32:07 Reading Location: [place] [address] Angio Body Reading Room CT, CTA AAA, W/ BELLA.EXT.RUNOFF 2020-08-30 11:32:00LLE DVT, assess prior pelvic mass, please assess venous phaseAnesthesia:->None [facility] : 1960 Sex: [...] size and patent. Right lower extremity: The PROJ ENGINEER, DFA, SFA, and popliteal arteries are patent. Trifurcation vessels are patent. Left lower extremity: The PROJ ENGINEER, DFA, SFA, and popliteal arteries are patent. [...] MDReport Verified Date/Time: 08/30/2020 11:32:07 Reading Location: [facility] B1 P048 Angio Body Reading Room CT abdomen/pelvis with [...] size and patent. Right lower extremity: The PROJ ENGINEER, DFA, SFA, and popliteal arteries are patent. Trifurcation vessels are patent. Left lower extremity: The PROJ ENGINEER, DFA, SFA, and popliteal arteries are patent. [...] MDReport Verified Date/Time: 08/30/2020 11:32:07 Reading Location: [facility] P048 Angio Body Reading Room [facility] CenterCTA AAA and [id number] 11:32:00Interface, External Ris In - 08/30/2020 11:34 [...] size and patent. Right lower extremity: The PROJ ENGINEER, DFA, SFA, and popliteal arteries are patent. Trifurcation vessels are patent. Left lower extremity: The PROJ ENGINEER, DFA, SFA, and popliteal arteries are patent. [...] MDReport Verified Date/Time: 08/30/2020 11:32:07 Reading Location: [place] [address] Angio Body Reading Room [facility] CenterCT abdomen/pelvis with IV [id number] 11:32:00Interface, External Ris In - 08/30/2020 11:34 [...] size and patent. Right lower extremity: The PROJ ENGINEER, DFA, SFA, and popliteal arteries are patent. Trifurcation vessels are patent. Left lower extremity: The PROJ ENGINEER, DFA, SFA, and popliteal arteries are patent. [...] MDReport Verified Date/Time: 08/30/2020 11:32:07 Reading Location: [place] [address] Angio Body Reading Room [facility] CenterCTA AAA and [id number] 11:32:00Interface, External Ris In - 08/30/2020 11:34 [...] size and patent. Right lower extremity: The PROJ ENGINEER, DFA, SFA, and popliteal arteries are patent. Trifurcation vessels are patent. Left lower extremity: The PROJ ENGINEER, DFA, SFA, and popliteal arteries are patent. [...] MDReport Verified Date/Time: 08/30/2020 11:32:07 Reading Location: [place] [address] Angio Body Reading Room [facility] CenterCT abdomen/pelvis with IV [id number] 11:32:00Interface, External Ris In - 08/30/2020 11:34 [...] size and patent. Right lower extremity: The PROJ ENGINEER, DFA, SFA, and popliteal arteries are patent. Trifurcation vessels are patent. Left lower extremity: The PROJ ENGINEER, DFA, SFA, and popliteal arteries are patent. [...] MDReport Verified Date/Time: 08/30/2020 11:32:07 Reading Location: [facility] B1 P048 Angio Body Reading Room [facility] CenterCTA AAA and [id number] 11:32:00Interface, External Ris In - 08/30/2020 11:34 [...] size and patent. Right lower extremity: The PROJ ENGINEER, DFA, SFA, and popliteal arteries are patent. Trifurcation vessels are patent. Left lower extremity: The PROJ ENGINEER, DFA, SFA, and popliteal arteries are patent. [...] Bull Verified Date/Time: 08/30/2020 11:32:07 Reading Location: [facility] B1 P048 Angio Body Reading Room [facility] CenterArterial doppler leg, [id number] 09:31:54Ejection [facility] ECHO HEARTLAB MKCKESSON CPACS Left Impression1. The [...] + + + + + + !Mid SPECIAL PROCEDURE TECH ! !59.4 ! ! ! + + +-- + + + !Dist SPECIAL PROCEDURE TECH ! !61.6 ! ! ! + + [...] Study 08/29/2020 NEELAM Age 60 Visit Number [id number] Gender Female Accession Number [id number] Date of 1960 Referring Tricia Hernandez Room Number 2546 Physician Richard 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 Stacy Benitez MD RVT Physician ProcedureType of [...] + + + + + + !Mid SPECIAL PROCEDURE TECH ! !59.4 ! ! ! + + + + + + !Dist SPECIAL PROCEDURE TECH ! !61.6 ! ! ! + + + ---------+ + + !Prox JANETTE ! !64.3 ! ! ! + + + +---- + + !Mid JANETTE ! !80.3 ! ! ! + + + + + + !Dist JANETTE ! !67.1 ! ! ! + + + + + +[facility], [id number] 09:31:54Ejection [facility] ECHO HEARTLAB MKCKESSON [facility] Left Impression1. The common femoral, profunda fe moral, superficial femoral, popliteal,posterior tibial and anterior tibial [...] X 4.42 cm X 2.22 cm. Signature ------ Velocities are measured in cm/s ; Diameters [...] + + + + + + !Mid SPECIAL PROCEDURE TECH ! !59.4 ! ! ! + + +-- + + + !Dist SPECIAL PROCEDURE TECH ! !61.6 ! ! ! + + [...] Study 08/29/2020 NEELAM Age 60 Visit Number [id number] Gender Female Accession Number [id number] Date of 1960 Referring Tricia Hernandez Room Number 2546 Physician Richard 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 Stacy Benitez MD T Physician ProcedureType of Study: Extremities Arteries: Lower [...] + + + + + + !Mid SPECIAL PROCEDURE TECH ! !59.4 ! ! ! + + + + + + !Dist SPECIAL PROCEDURE TECH ! !61.6 ! ! ! + + + ---------+ + + !Prox JANETTE ! !64.3 ! ! ! + + + +---- + + !Mid JANETTE ! !80.3 ! ! ! + + + + + + !Dist JANETTE ! !67.1 ! ! ! + + + + + +[facility], [id number] 09:31:54Ejection [facility] ECHO HEARTLAB MK[facility]ON [facility] Left Impression1. The common femoral, profunda fe moral, superficial femoral, popliteal,posterior tibial and anterior tibial [...] X 4.42 cm X 2.22 cm. Signature ------ Velocities are measured in cm/s ; Diameters [...] + + + + + + !Mid SPECIAL PROCEDURE TECH ! !59.4 ! ! ! + + +-- + + + !Dist SPECIAL PROCEDURE TECH ! !61.6 ! ! ! + + [...] Study 08/29/2020 NEELAM Age 60 Visit Number [id number] Gender Female Accession Number [id number] Date of 1960 Referring Tricia Hernandez Room Number 2546 Physician Richard 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 Stacy Proctor Interpreting Vivek Benitez MD T Physician ProcedureType of Study: Extremities Arteries: Lower [...] + + + + + + !Mid SPECIAL PROCEDURE TECH ! !59.4 ! ! ! + + + + + + !Dist SPECIAL PROCEDURE TECH ! !61.6 ! ! ! + + + ---------+ + + !Prox JANETTE ! !64.3 ! ! ! + + + +---- + + !Mid JANETTE ! !80.3 ! ! ! + + + + + + !Dist JANETTE ! !67.1 ! ! ! + + + + + +[facility] CenterBUN and [id number] 06:17:00 Test Item Value Reference Range Interpretation [...] mL/min/1.73 [place] [address]-9) NOT ACCURATE CREATININE CLEARANCE IN PREDICTING GLOMERULAR FILTRATION RATE . ESTIMATED GFR I S NOT APPLICABLE FOR DIALYSIS PATIEN TS. JESSICA (test code = Fruit Thinner ID - BS JESSICA) [facility] and [id number] 06:17:00 Test Item Value Reference Range Interpretation [...] mL/min/1.[place] [address]-0) NOT ACCURATE CREATININE CLEARANCE IN PREDICTING GLOMERULAR FILTRATION RATE . ESTIMATED GFR I S NOT APPLICABLE FOR DIALYSIS PATIEN TS. JESSICA (test code = Fruit Thinner ID - BS JESSICA) [facility] Center[facility] and [id number] 06:17:00 Test Item Value Reference Range Interpretation Comments BUN (test code = 13 mg/dL 7-21 3094-0) Creatinine (test 0.72 mg/dL 0.57-1.25 code = 2160-0) BUN/Creatinine 18 For a normal ratio (test code = individua l on a 3097-3) normal diet, th e reference inter jewel for the mass ra nabil ranges between 12:1 and 20:1 ( BUN in mg/dL/creatinin e in mg/dL) EGFR (test code = 100 mL/min/1.[place] [address]-5) NOT ACCURATE CREATININE CLEARANCE IN PREDICTING GLOMERULAR FILTRATION RATE . ESTIMATED GFR I S NOT APPLICABLE FOR DIALYSIS PATIEN TS. JESSICA (test code = Fruit Thinner ID - BS JESSICA) [facility] CenterB[facility] AND CREATININE W/[id number] 06:17:00 Test Item Value Reference Range Interpretation Comments BLOOD UREA NITROGEN 13 mg/dL 7- (BEAKER) (test code = 354) CREATININE (BEAKER) 0.72 mg/dL 0.57-1.25 (test code = 358) BUN/CREAT RATIO 18 For a normal (BEAKER) (test code individu al on a = 1678176512) normal diet, t he reference inter jewel for the mass ra nabil ranges between 12:1 and 20:1 (BUN i n mg/dL/creatinin e in mg/dL) EGFR (BEAKER) (test 100 mL/min/1.73 ESTIM ATED GFR IS code = 1092) sq m NOT ACCURATE CREATININE CLEARANCE IN PREDICTING GLOMERULAR FILTRATION RATE . ESTIMATED GFR I S NOT APPLICABLE FOR DIALYSIS PATIEN TS. Fruit Thinner ID - BSCBC (HEMOGRAM ONLY)2020-08-30 05:50:00 Test [...] 0-0 (BEAKER) (test code = 413) PROTHROMBIN TIME/[id number] 05:48:00 Test Item Value Reference Range Interpretation Comments PROTIME (BEAKER) 21.5 seconds 11.9-14.2 H (test code = 759) INR (BEAKER) (test 1.89 See_Comment [Automat ed message] code = 370) The system [employer] generated this result transmitted ref erence range: [...] 1.0-2.0 units/mL once daily enoxaparin Ref: CHEST 2012;141:[id number] Lab Interpretation (test Normal code = 49074-9) [facility] CenterHeparin Assay - Low Molecular [id number] 14:07:00 Test Item Value Reference Range Interpretation Comments Anti 10A-Lovenox (test 0.85 u/ml 0.6-2 code = 1605) JESSICA (test code = JESSICA) Anti-Factor 10-A Level (Heparin Assay for Low Molecular Weight Heparin)Monitoring Guidelines: Blood samples should be obtained 4 hours post subcutaneous injection (time of Peak level) Therapeutic Peak Levels: 0.6-1.0 units/mL twice daily enoxaparin 1.0-2.0 units/mL once daily enoxaparin Ref: CHEST 2012;141:[id number] Lab Interpretation (test Normal code = 50947-1) [facility] Center[facility]arin Assay - Low Molecular [id number] 14:07:00 Test Item Value Reference Range Interpretation Comments Anti 10A-Lovenox (test 0.85 u/ml 0.6-2 code = 1605) JESSICA (test code = JESSICA) Anti-Factor 10-A Level (Heparin Assay for Low Molecular Weight Heparin)Monitoring Guidelines: Blood samples should be obtained 4 hours post subcutaneous injection (time of Peak level) Therapeutic Peak Levels: 0.6-1.0 units/mL twice daily enoxaparin 1.0-2.0 units/mL once daily enoxaparin Ref: CHEST 2012;141:[id number] Lab Interpretation (test Normal code = 69570-2) [facility] CenterHEPARIN ASSAY - LOW MOLECULAR [id number] 14:07:00 Test Item Value Reference Range Interpretation Comments LOVENOX-ANTI 10A (BEAKER) (test 0.85 u/ml 0.60-2.00 code = 1605) Anti-Factor 10-A Level (Heparin Assay for Low Molecular Weight Heparin)Monitoring Guidelines: Blood samples should be obtained 4 hours post subcutaneous injection (time of Peak level) Therapeutic Peak Levels: 0.6-1.0 units/mL twice daily enoxaparin 1.0-2.0 units/mL once daily enoxaparinRef: CHEST 2012;141:[id number] (HEMOGRAM ONLY)2020-08-29 13:22:00 Test Item Value Reference [...] 0-0 (BEAKER) (test code = 413) PROTHROMBIN TIME/[id number] 05:41:00 Test Item Value Reference Range Interpretation Comments PROTIME (BEAKER) 17.4 seconds 11.9-14.2 H (test code = 759) INR (BEAKER) (test 1.45 See_Comment [Automat ed message] code = 370) The system [employer] generated this result transmitted ref erence range: <=5.90. The reference range was not used to int erpret this result as normal/abnormal . RECOMMENDED COUMADIN/WARFARIN INR THERAPY RANGESSTANDARD DOSE: 2.0 - 3.0 Includes: PROPHYLAXIS forvenous thrombosis, systemic embolization; TREATMENT for venous thrombosis and/or pulmonary embolus.HIGH RISK: Target INR is 2.5-3.5 for patients with mechanical heart valves.BUN AND CREATININE W/[id number] 17:04:00 Test Item Value Reference Range Interpretation Comments BLOOD UREA NITROGEN 9 mg/dL 7-21 (BEAKER) (test code = 354) CREATININE (BEAKER) 0.79 mg/dL 0.57-1.25 (test code = 358) BUN/CREAT RATIO 11 For a normal (BEAKER) (test code individu al on a = 6692366689) normal diet, t he reference inter jewel for the mass ra nabil ranges between 12:1 and 20:1 (BUN i n mg/dL/creatinin e in mg/dL) EGFR (BEAKER) (test 90 mL/min/1.73 ESTIMA YUMIKO GFR IS code = 1092) sq m NOT ACCURATE CREATININE CLEARANCE IN PREDICTING GLOMERULAR FILTRATION RATE . ESTIMATED GFR I S NOT APPLICABLE FOR DIALYSIS PATIEN TS. Fruit Thinner ID - DBVenous doppler leg, [id number] 15:52:54Ejection FractionSLEH ECHO HEARTLAB MKCKESSON CPACS Left Impression1. There is partial echolucent deep [...] Study 08/28/2020 NEELAM Age 60 Visit Number [id number] Gender Female Accession Number [id number] Date of 1960 Referring Tricia Room Number 4646 Physician Elizabethfl 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 Jarad Mayberry Interpreting Vivek Benitez MD RVT [...] in cm/s ; Diameters are measured in [facility] Venous doppler leg, [id number] 15:52:54Ejection FractionSLEH ECHO HEARTLAB MKCKESSON CPACS Left Impression1. There is partial echolucent deep [...] Study 08/28/2020 NEELAM Age 60 Visit Number [id number] Gender Female Accession Number [id number] Date of 1960 Referring Tricia M Room Number 9416 Physician Richard 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 Jarad Mayberry Interpreting Vivek Benitez MD RVT [...] in cm/s ; Diameters are measured in [facility] Venous doppler leg, [id number] 15:52:54Ejection FractionSLEH ECHO HEARTLAB MKCKESSON CPACS Left Impression1. There is partial echolucent deep [...] Study 08/28/2020 NEELAM Age 60 Visit Number [id number] Gender Female Accession Number [id number] Date of 1960 Referring Tricia Room Number 1093 Physician Richard 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 Jarad Mayberry Interpreting Vivek Benitez MD RVT Physician ProcedureType of Study: Veins: Lower Extremities DVT Study, VENOUS DO PPLER LEG, LEFT. Indications for Study:Pain.Patient Status:STAT.Study Location:Portable.Technical Quality:Technically Difficult. - Results were reported to:Ceci Mag@12:40.Risk FactorsHistory of Disease +---------+----+ +!Lillian gnosis!Date!Comments !+---------+----+ [...] in cm/s ; [facility] SARS-COV2/RT-PCR ([facility])2020-08-28 12:32:00 Test Item Value Reference Range Interpretation Comments SARS-COV2/RT-PCR (test Negative Not Detected, Negative, code = 0974351) See external report for linked test SARS-COV-2 PERFORMING LAB [facility] (test code = 6901941) Negative result for this test determines that [...] 564(g) of the Act.Fact Sheet for Healthcare Providers:https://www.[employer]/sites/default/files/product/documents/Fact_Shee k_QT_Tqlivufva_Eeow_DSHM-YmJ-2.pdfFact Sheet for Healthcare Patients:https://www.[employer]/sites/default/files/product/ documents/Jxvd_Xddaz_Lftclccj_Xmhs_WFEM-DaB-2.pdfPerforming Laboratory:[facility], [place] [address]XKOAFJRJCWU TIME/INR 2020-08-28 05:15:00 Test Item Value Reference Range Interpretation Comments PROTIME (BEAKER) 16.1 seconds 11.9-14.2 H (test code = 759) INR (BEAKER) (test 1.31 See_Comment [Automat ed message] code = 370) The system [employer] generated this result transmitted ref erence range: [...] 0-0 (BEAKER) (test code = 413) PROTHROMBIN TIME/[id number] 16:24:00 Test Item Value Reference Range Interpretation Comments PROTIME (BEAKER) 14.7 seconds 11.9-14.2 H (test code = 759) INR (BEAKER) (test 1.20 See_Comment [Automat ed message] code = 370) The system [employer] generated this result transmitted ref erence range: [...] 0-0 (BEAKER) (test code = 413) PROTHROMBIN TIME/[id number] 14:53:00 Test Item Value Reference Range Interpretation Comments PROTIME (BEAKER) 10.1 seconds 9.8-12.0 (test code = 759) INR (BEAKER) (test 0.94 See_Comment [Automat ed message] code = 370) The system [employer] generated this result transmitted ref erence range: [...] 0-0 (BEAKER) (test code = 413) PROTHROMBIN TIME/[id number] 19:23:00 Test Item Value Reference Range Interpretation Comments PROTIME (BEAKER) 15.0 seconds 11.9-14.2 H (test code = 759) INR (BEAKER) (test 1.20 See_Comment [Automat ed message] code = 370) The system [employer] generated this result transmitted ref erence range: [...] 0-1 PERCENT (BEAKER) (test code = 2801) [id number] 07:38:00 Test Item Value Reference Range Interpretation Comments PTT (test code = 62.8 See_Comment H [Automated message] 24351-7) The system [employer] generated this result transmitted ref erence range: 22.5 - 3 6.0 seconds. The reference range was not used to int erpret this result as normal/abnormal . Lab Interpretation (test Abnormal code = 42175-5) [facility]eraPTT20[facility] 07:38:00 Test Item Value Reference Range Interpretation Comments PTT (test code = 62.8 See_Comment H [Automated message] 74224-3) The system [employer] generated this result transmitted ref erence range: 22.5 - 3 6.0 seconds. The reference range was not used to int erpret this result as normal/abnormal . Lab Interpretation (test Abnormal code = 98322-4) [facility]eraPTT2021-[facility]-11 07:38:00 Test Item Value Reference Range Interpretation Comments PTT (test code = 62.8 See_Comment H [Automated message] 74269-7) The system [employer] generated this result transmitted ref erence range: 22.5 - 3 6.0 seconds. The reference range was not used to int erpret this result as normal/abnormal . Lab Interpretation (test Abnormal code = 39249-6) [facility] 07:38:00 Test Item Value Reference [...] WBC 0-0 (BEAKER) (test code = 413) [id number] 23:09:00 Test Item Value Reference Range Interpretation Comments PARTIAL THROMBOPLASTIN TIME 48.3 seconds 22.5-36.0 H (BEAKER) (test code = 760) [id number] 12:59:00 Test Item Value Reference Range Interpretation Comments PARTIAL THROMBOPLASTIN TIME 33.5 seconds 22.5-36.0 (BEAKER) (test code = 760) Basic Metabolic [id number] 06:56:00 Test Item Value Reference Range Interpretation Comments Sodium (test code = 140 meq/L 529-307 4170-2) Potassium (test 4.4 meq/L 3.5-5.1 code = 2823-3) Chloride (test code 100 meq/L 98-107 = 2075-0) CO2 (test code = 27 meq/L 22-29 8-9) BUN (test code = 13 mg/dL 7- 3094-0) Creatinine (test 0.81 mg/dL 0.57-1.25 code = 2160-0) Glucose (test code 101 mg/dL 70-105 = 2345-7) Calcium (test code 9.7 mg/dL 8.4-10.2 = 20590-7) EGFR (test code = 87 mL/min/1.73 [place] [address]-4) NOT ACCURATE CREATININE CLEARANCE IN PREDICTING GLOMERULAR FILTRATION RATE . ESTIMATED GFR I S NOT APPLICABLE FOR DIALYSIS PATIEN JESSICA (test code = Fruit Thinner ID - JESSICA) [facility] Metabolic [id number] 06:56:00 Test Item Value Reference Range Interpretation Comments Sodium (test code = 140 meq/L 514-498 8987-2) Potassium (test 4.4 meq/L 3.5-5.1 code = 2823-3) Chloride (test code 100 meq/L 98-107 = 2075-0) CO2 (test code = 27 meq/L 2027-11) BUN (test code = 13 mg/dL 10-04 3094-0) Creatinine (test 0.81 mg/dL 0.57-1.25 code = 2160-0) Glucose (test code 101 mg/dL 70-105 = 2345-7) Calcium (test code 9.7 mg/dL 8.4-10.2 = 78923-7) EGFR (test code = 87 mL/min/1.73 [place] [address]-7) NOT ACCURATE CREATININE CLEARANCE IN PREDICTING GLOMERULAR FILTRATION RATE . ESTIMATED GFR I S NOT APPLICABLE FOR DIALYSIS PATIEN JESSICA (test code = Fruit Thinner ID - JESSICA) [facility] Metabolic [id number] 06:56:00 Test Item Value Reference Range Interpretation Comments Sodium (test code = 140 meq/L 675-942 8425-2) Potassium (test 4.4 meq/L 3.5-5.1 code = 2823-3) Chloride (test code 100 meq/L 98-107 = 2075-0) CO2 (test code = 27 meq/L 2027-) BUN (test code = 13 mg/dL 10-04 3094-0) Creatinine (test 0.81 mg/dL 0.57-1.25 code = 2160-0) Glucose (test code 101 mg/dL 70-105 = 2345-7) Calcium (test code 9.7 mg/dL 8.4-10.2 = 86820-3) EGFR (test code = 87 mL/min/1.73 [place] [address]-7) NOT ACCURATE CREATININE CLEARANCE IN PREDICTING GLOMERULAR FILTRATION RATE . ESTIMATED GFR I S NOT APPLICABLE FOR DIALYSIS PATIEN TS. JESSICA (test code = Fruit Thinner ID - JESSICA) BALA Hernandez HOMAR [facility] METABOLIC [id number] 06:56:00 Test Item Value Reference Range Interpretation [...] S NOT APPLICABLE FOR DIALYSIS PATIEN TS. Fruit Thinner ID - BALA [facility]BC (HEMOGRAM ONLY)2020-08-24 06:41:00 [...] WBC 0-0 (BEAKER) (test code = 413) [id number] 06:32:00 Test Item Value Reference Range Interpretation Comments PARTIAL THROMBOPLASTIN TIME 34.7 seconds 22.5-36.0 (BEAKER) (test code = 760) [id number] 22:03:00 Test Item Value Reference Range Interpretation Comments PARTIAL THROMBOPLASTIN TIME 36.0 seconds 22.5-36.0 (BEAKER) (test code = 760) [id number] 14:36:00 Test Item Value Reference Range Interpretation [...] (BEAKER) (test code = 413) BASIC METABOLIC [id number] 05:47:00 Test Item Value Reference Range Interpretation [...] S NOT APPLICABLE FOR DIALYSIS PATIEN TS. Fruit Thinner ID - BAL WC (HEMOGRAM ONLY)2020-08-23 05:19:00 Test Item Value Reference [...] = 413) U/S, EXTREMITY, LOWER, LEFT (NON-VASCULAR) [id number] 15:15:00Please obtain biopsy of inguinal mass. Pending discharge Reason for exam:->Large left inguinal mass / lymphadenopathy [facility] 1960 Sex: FFINAL REPORT EXAM: U/S, EXTREMITY, LOWER, LEFT (NON-VASCULAR) LIMITED DATE: 08/21/2020 3:06 PM INDICATION: Large left inguinal mass / lymphadenopathyCOMPARISON: None TECHNIQUE: Transverse and longitudinal urias scale and color doppler sonographic images of [...] hematoma is not visualized. Signed: Rick Garcia MDReport Verified Date/Time: 08/22/2020 15:15:14 Reading Location: [facility] C013 Consult Reading Room US extremity non-vascular limited [id number] 15:15:00 Interface, External Ris In - 08/22/2020 3:17 PM CDTFINAL REPORT EXAM: U/S, EXTREMITY, LOWER, LEFT (NON-VASCULAR) LIMITEDDATE: 08/21/2020 3:06 PM INDICATION: Large left inguinal mass / lymphadenopathyCOMPARISON: None TECHNIQUE: Transverse and longitudinal urias scale and color doppler sonographic images of [...] hematoma is not visualized. Signed: Rick Garcia MDReport Verified Date/Time: 08/22/2020 15:15:14 Reading Location: [facility] B1 [id number] Consult Reading Room Electronically signed by: RICK GARCIA MDon 08/22/2020 03:15 [facility] [id number] 15:15:00Interface, External Ris In - 08/22/2020 3:17 PM CDTFINAL REPORT EXAM: U/S, EXTREMITY, LOWER, LEFT (NON-VASCULAR) LIMITEDDATE: 08/21/2020 3:06 PM INDICATION: Large left inguinal mass / lymphadenopathyCOMPARISON: None TECHNIQUE: Transverse and longitudinal urias scale and color doppler sonographic images of [...] hematoma is not visualized. Signed: Rick Garcia Verified Date/Time: 08/22/2020 15:15:14 Reading Location: [address] Consult Reading Room Electronically signed by: Cassandra QUIJANO 08/22/2020 03:15 [facility] non- vascular limited [id number] 15:15:00Interface, External Ris In - 08/22/2020 3:17 PM CDTFINAL REPORT EXAM: U/S, EXTREMITY, LOWER, LEFT (NON-VASCULAR) LIMITEDDATE: 08/21/2020 3:06 PM INDICATION: Large left inguinal ma ss / lymphadenopathyCOMPARISON: None TECHNIQUE: Transverse and longitudinal urias scale and color doppler sonographic images of [...] hematoma is not visualized. Signed: Rick Garcia Verified Date/Time: 08/22/2020 15:15:14 Reading Location: [address] Consult Reading Room Electronically signed by: Cassandra QUIJANO 08/22/2020 03:15 [facility] HospitalBAS[facility] METABOLIC [id number] 06:22:00 Test Item Value Reference Range Interpretation [...] S NOT APPLICABLE FOR DIALYSIS PATIEN TS. Fruit Thinner ID - BALA [facility] (HEMOGRAM ONLY)2020-08-22 05:57:00 Test Item Value Reference [...] (BEAKER) (test code = 413) COMPREHENSIVE METABOLIC [id number] 07:02:00 Test Item Value Reference Range Interpretation [...] S NOT APPLICABLE FOR DIALYSIS PATIEN TS. Fruit Thinner ID - BALA MPROTHROMBIN TIME/[id number] 06:42:00 Test Item Value Reference Range Interpretation Comments PROTIME (BEAKER) 13.7 seconds 11.9-14.2 (test code = 759) INR (BEAKER) (test 1.08 See_Comment [Automat ed message] code = 370) The system [employer] generated this result transmitted ref erence range: [...] 413) RAD, SPINE, LUMBAR, 2 OR 3 [id number] 20:22:00Reason for exam:->low back pain, fallHOMAR [facility] : 1960 Sex: [...] LEFT 2020-08-20 20:22:00Reason for exam:->knee pain, fall [facility] : 1960 Sex: [...] 2-3 VIEWS, LEFT, TO INCL PELVIS WHEN [id number] 20:22:00Reason for exam:->hip pain, fall [facility] : 1960 Sex: [...] Date/Time: 08/20/2020 20:22:11 XR hip 2 views [id number] 20:22:00Interface, External Ris In - 08/20/2020 8:24 [...] Prateek Fung MDReport Verified Date/Time: 08/20/2020 20:22:11 [facility] views [id number] 20:22:00Interface, External Ris In - 08/20/2020 8:24 [...] degenerative changes discussed above. Signed: Prateek Fung MDRcarylort Verified Date/Time: 08/20/2020 20:22:11 [facility] 2 views left 2020-08-20 20:22:00Interface, External Ris In [...] Prateek Fung MDReport Verified Date/Time: 08/20/2020 20:22:11 [facility] lumbar 2 or 3 [id number] 20:22:00Interface, External Ris In - 08/20/2020 8:24 [...] Prateek Fung MDReport Verified Date/Time: 08/20/2020 20:22:11 [facility] lumbar 2 or 3 [id number] 20:22:00Interface, External Ris In - 08/20/2020 8:24 [...] Prateek Fung MDReport Verified Date/Time: 08/20/2020 20:22:11 [facility] lumbar 2 or 3 [id number] 20:22:00Interface, External Ris In - 08/20/2020 8:24 [...] Prateek Fung MDReport Verified Date/Time: 08/20/2020 20:22:11 [facility] 3 views left 2020-08-20 20:22:00Interface, [...] Prateek Fung MDReport Verified Date/Time: 08/20/2020 20:22:11 [facility] 3 views [id number] 20:22:00Interface, External Ris In - 08/20/2020 8:24 [...] Prateek Fung MDReport Verified Date/Time: 08/20/2020 20:22:11 [facility] 3 views left 2020-08-20 20:22:00Interface, [...] Prateek Fung MDReport Verified Date/Time: 08/20/2020 20:22:11 [facility] HospitalLactate dehydrogenase (LDH)2020-08-20 15:47:00 Test Item Value Reference Range Interpretation Comments LDH (test code = 2532-0) 228 U/L 125-220 H JESSICA (test code = JESSICA) Fruit Thinner ID - DB Lab Interpretation (test Abnormal code = 61430-3) [facility]esium[facility] 15:47:00 Test Item Value Reference Range Interpretation Comments Magnesium (test code = 2.2 mg/dL 1.6-2.6 37841-6) JESSICA (test code = JESSICA) Fruit Thinner ID - DB Lab Interpretation (test Normal code = 48515-6) [facility] CenterPhosphorus2021-[facility] 15:47:00 Test Item Value Reference Range Interpretation Comments Phosphorus (test code = 3.1 mg/dL 2.3-4.7 2777-1) JESSICA (test code = JESSICA) Fruit Thinner ID - DB Lab Interpretation (test Normal code = 99159-2) [facility] CenterUric [id number] 15:47:00 Test Item Value Reference Range Interpretation Comments Uric Acid (test code = 5.1 mg/dL 2.6-7.2 3084-1) JESSICA (test code = JESSICA) Fruit Thinner ID - DB Lab Interpretation (test Normal code = 19455-8) [facility] CenterLactate dehydrogenase (LDH)2020-08-20 15:47:00 Test Item Value Reference Range Interpretation Comments LDH (test code = 2532-0) 228 U/L 125-220 H JESSICA (test code = JESSICA) Fruit Thinner ID - DB Lab Interpretation (test Abnormal code = 98495-6) [facility] CenterMagnesium2021-06-[facility] 15:47:00 Test Item Value Reference Range Interpretation Comments Magnesium (test code = 2.2 mg/dL 1.6-2.6 98935-5) JESSICA (test code = JESSICA) Fruit Thinner ID - DB Lab Interpretation (test Normal code = 58669-2) [facility] CenterPhosph[facility]2021-[facility] 15:47:00 Test Item Value Reference Range Interpretation Comments Phosphorus (test code = 3.1 mg/dL 2.3-4.7 2777-1) JESSICA (test code = JESSICA) Fruit Thinner ID - DB Lab Interpretation (test Normal code = 69112-0) [facility] CenterUric [id number] 15:47:00 Test Item Value Reference Range Interpretation Comments Uric Acid (test code = 5.1 mg/dL 2.6-7.2 3084-1) JESSICA (test code = JESSICA) Fruit Thinner ID - DB Lab Interpretation (test Normal code = 07298-4) [facility] CenterLactate dehydrogenase (LDH)2020-08-20 15:47:00 Test Item Value Reference Range Interpretation Comments LDH (test code = 2532-0) 228 U/L 125-220 H JESSICA (test code = JESSICA) Fruit Thinner ID - DB Lab Interpretation (test Abnormal code = 27726-2) [facility] Center[facility]esium2021-06-[facility] 15:47:00 Test Item Value Reference Range Interpretation Comments Magnesium (test code = 2.2 mg/dL 1.6-2.6 65237-8) JESSICA (test code = JESSICA) Fruit Thinner ID - DB Lab Interpretation (test Normal code = 16965-5) [facility] CenterPhosph[facility]2021-[facility] 15:47:00 Test Item Value Reference Range Interpretation Comments Phosphorus (test code = 3.1 mg/dL 2.3-4.7 2777-1) JESSICA (test code = JESSICA) Fruit Thinner ID - DB Lab Interpretation (test Normal code = 28346-5) [facility] CenterUric [id number] 15:47:00 Test Item Value Reference Range Interpretation Comments Uric Acid (test code = 5.1 mg/dL 2.6-7.2 3084-1) JESSICA (test code = JESSICA) Fruit Thinner ID - DB Lab Interpretation (test Normal code = 70255-5) [facility] CenterCOMPREHENSIVE METABOLIC [id number] 15:47:00 Test Item Value Reference Range Interpretation [...] S NOT APPLICABLE FOR DIALYSIS PATIEN TS. Fruit Thinner ID - [id number] 15:47:00 Test Item Value Reference Range Interpretation Comments MAGNESIUM (BEAKER) (test code = 2.2 mg/dL 1.6-2.6 627) Fruit Thinner ID - [id number] 15:47:00 Test Item Value Reference Range Interpretation Comments PHOSPHORUS (BEAKER) (test code = 3.1 mg/dL 2.3-4.7 604) Fruit Thinner ID - DBURIC [id number] 15:47:00 Test Item Value Reference Range Interpretation Comments URIC ACID (BEAKER) (test code = 5.1 mg/dL 2.6-7.2 773) Fruit Thinner ID - DBLACTATE DEHYDROGENASE (LDH)2020-08-20 15:47:00 Test Item Value Reference Range Interpretation Comments LACTATE DEHYDROGENASE (BEAKER) (test 228 U/L 125-220 H code = 635) Fruit Thinner ID - DBCBC W/PLT COUNT & AUTO [id number] 15:26:00 Test Item Value Reference Range Interpretation [...] (test code = 2801) AFB CULTURE + [id number] 17:40:00 Test Item Value Reference Range Interpretation Comments CULTURE (BEAKER) (test No acid-fast bacilli code = 1095) isolated in 42 days AFB SMEAR (BEAKER) No acid fast bacilli (test code = 994) seen AFB CULTURE + [id number] 16:47:00 Test Item Value Reference Range Interpretation Comments CULTURE (BEAKER) (test No acid-fast bacilli code = 1095) isolated in 42 days AFB SMEAR (BEAKER) No acid fast bacilli (test code = 994) seen FUNGUS CULTURE + [id number] 17:06:00 Test Item Value Reference Range Interpretation Comments CULTURE (BEAKER) (test No fungus isolated in code = 1095) 28 days FUNGUS SMEAR (BEAKER) No fungi seen (test code = 1406) FUNGUS CULTURE + [id number] 20:59:00 Test Item Value Reference Range Interpretation Comments CULTURE (BEAKER) (test No fungus isolated in code = 1095) 28 days FUNGUS SMEAR (BEAKER) No fungi seen (test code = 1406) POCT-GLUCOSE [id number] 17:00:00 Test Item Value Reference Range Interpretation Comments POC-GLUCOSE METER 193 mg/dL 70-110 H TESTED AT [facility] [address] (BEAKER) (test code [employer] [facility] = 1538) [place] [address] POCT-GLUCOSE [id number] 11:50:00 Test Item Value Reference Range Interpretation Comments POC-GLUCOSE METER 185 mg/dL 70-110 H TESTED AT [facility] [address] (BEAKER) (test code [employer] [facility] = 1538) [place] [address] CBC W/PLT COUNT & AUTO [id number] 09:22:00 Test Item Value Reference Range Interpretation [...] (BEAKER) (test code = 2801) BASIC METABOLIC [id number] 09:21:00 Test Item Value Reference Range Interpretation [...] NOT APPLICABLE FOR DIALYSIS PATIEN TS. C-REACTIVE [id number] 09:21:00 Test Item Value Reference Range Interpretation Comments C-REACTIVE PROTEIN (BEAKER) (test 2.31 mg/dL 0.00-0.50 H code = 676) HEPATIC FUNCTION [id number] 09:20:00 Test Item Value Reference Range Interpretation [...] code = 47 U/L 6-50 347) POCT-GLUCOSE [id number] 06:53:00 Test Item Value Reference Range Interpretation Comments POC-GLUCOSE METER 102 mg/dL 70-110 TESTED AT [facility] [address] ([facility]) ([facility] [place] [address] POCT-GLUCOSE [id number] 21:32:00 Test Item Value Reference Range Interpretation Comments POC-GLUCOSE METER 212 mg/dL 70-110 H TESTED AT [facility] [address] ([facility]) (test [facility] 1538) [place] [address] POCT-GLUCOSE [id number] 16:26:00 Test Item Value Reference Range Interpretation Comments POC-GLUCOSE METER 170 mg/dL 70-110 H TESTED AT [facility] [address] ([facility]) (test [facility] 1538) [place] [address] POCT-GLUCOSE [id number] 05:53:00 Test Item Value Reference Range Interpretation Comments POC-GLUCOSE METER 90 mg/dL 70-110 TESTED AT [facility] [address] ([facility]) (test code = [facility] 1538) [place] [address] POCT-GLUCOSE [id number] 21:52:00 Test Item Value Reference Range Interpretation Comments POC-GLUCOSE METER 130 mg/dL 70-110 H TESTED AT [facility] [address] ([facility]) (test code [facility] = 1538) [place] [address] POCT-GLUCOSE [id number] 17:16:00 Test Item Value Reference Range Interpretation Comments POC-GLUCOSE METER 177 mg/dL 70-110 H TESTED AT [facility] [address] ([facility]) (test code [facility] = 1538) [place] [address] [id number] 16:02:00 Test Item Value Reference Range Interpretation Comments POTASSIUM ([facility]) (test code = 3.9 meq/L 3.5-5.5 379) POCT-GLUCOSE [id number] 12:10:00 Test Item Value Reference Range Interpretation Comments POC-GLUCOSE METER 176 mg/dL 70-110 H TESTED AT [facility] [address] ([facility]) (test code [facility] = 1538) [place] [address] POCT-GLUCOSE [id number] 05:57:00 Test Item Value Reference Range Interpretation Comments POC-GLUCOSE METER 113 mg/dL 70-110 H TESTED AT [facility] [address] (BEAKER) (test code [facility] = 1538) [place] [address] POCT-GLUCOSE [id number] 21:53:00 Test Item Value Reference Range Interpretation Comments POC-GLUCOSE METER 160 mg/dL 70-110 H TESTED AT [facility] [address] (BEAKER) (test code [facility] = 1538) [place] [address] POCT-GLUCOSE [id number] 16:49:00 Test Item Value Reference Range Interpretation Comments POC-GLUCOSE METER 158 mg/dL 70-110 H TESTED AT [facility] [address] (BEAKER) (test code [facility] = 1538) [place] [address] POCT-GLUCOSE [id number] 12:14:00 Test Item Value Reference Range Interpretation Comments POC-GLUCOSE METER 162 mg/dL 70-110 H TESTED AT [facility] [address] (BEAKER) (test code [facility] = 1538) [place] [address] BASIC METABOLIC [id number] 04:57:00 Test Item Value Reference Range Interpretation [...] PATIEN TS. CBC W/PLT COUNT & AUTO [id number] 04:28:00 Test Item Value Reference Range Interpretation [...] BASOPHILS ABSOLUTE 0.01 K/ L 0.00-0.20 [facility] (test code = 417) IMMATURE 1 % 0-0 H GRANULOCYTES-RELATIVE PERCENT ([facility] (test code = 2801) POCT-GLUCOSE [id number] 20:44:00 Test Item Value Reference Range Interpretation Comments POC-GLUCOSE METER 168 mg/dL 70-110 H TESTED AT [facility] [address] [facility] (test code [facility] = 1538) [place] [address] POCT-GLUCOSE [id number] 16:10:00 Test Item Value Reference Range Interpretation Comments POC-GLUCOSE METER 228 mg/dL 70-110 H TESTED AT [facility] [address] ([facility]) (test code [facility] = 1538) [place] [address] POCT-GLUCOSE [id number] 13:15:00 Test Item Value Reference Range Interpretation Comments POC-GLUCOSE METER 182 mg/dL 70-110 H TESTED AT [facility] [address] ([facility]) (test code [facility] = 1538) [place] [address] POCT-GLUCOSE [id number] 06:57:00 Test Item Value Reference Range Interpretation Comments POC-GLUCOSE METER 153 mg/dL 70-110 H TESTED AT [facility] [address] ([facility]) (test code [facility] = 1538) [place] [address] POCT-GLUCOSE [id number] 21:27:00 Test Item Value Reference Range Interpretation Comments POC-GLUCOSE METER 146 mg/dL 70-110 H TESTED AT [facility] [address] ([facility]) (test code [facility] = 1538) [place] [address] POCT-GLUCOSE [id number] 17:17:00 Test Item Value Reference Range Interpretation Comments POC-GLUCOSE METER 134 mg/dL 70-110 H TESTED AT [facility] [address] [facility]) (test code [employer] [facility] = 1538) [place] [address] POCT-GLUCOSE [id number] 13:49:00 Test Item Value Reference Range Interpretation Comments POC-GLUCOSE METER 177 mg/dL 70-110 H TESTED AT [facility] [address] ([facility]) (test code [facility] = 1538) [place] [address] POCT-GLUCOSE [id number] 05:34:00 Test Item Value Reference Range Interpretation Comments POC-GLUCOSE METER 118 mg/dL 70-110 H TESTED AT [facility] [address] ([facility]) (test code [facility] = 1538) [place] [address] POCT-GLUCOSE [id number] 21:14:00 Test Item Value Reference Range Interpretation Comments POC-GLUCOSE METER 149 mg/dL 70-110 H TESTED AT [facility] [address] ([facility]) (test code [facility] = 1538) [place] [address] POCT-GLUCOSE [id number] 17:44:00 Test Item Value Reference Range Interpretation Comments POC-GLUCOSE METER 132 mg/dL 70-110 H TESTED AT [facility] [address] ([facility]) (test code [facility] = 1538) [place] [address] POCT-GLUCOSE [id number] 12:21:00 Test Item Value Reference Range Interpretation Comments POC-GLUCOSE METER 168 mg/dL 70-110 H TESTED AT [facility] [address] ([facility]) (test code [facility] = 1538) [place] [address] [id number] 05:19:00 Test Item Value Reference Range Interpretation Comments PARTIAL THROMBOPLASTIN TIME 84.3 seconds 23.2-36.1 H ([facility]) (test code = 760) POCT-GLUCOSE [id number] 20:50:00 Test Item Value Reference Range Interpretation Comments POC-GLUCOSE METER 147 mg/dL 70-110 H TESTED AT [facility] [address] [facility]) (test code [facility] = 1538) [place] [address] POCT-GLUCOSE [id number] 17:19:00 Test Item Value Reference Range Interpretation Comments POC-GLUCOSE METER 238 mg/dL 70-110 H TESTED AT [facility] [address] ([facility]) (test code [facility] = 1538) [place] [address] [id number] 15:09:00 Test Item Value Reference Range Interpretation Comments PARTIAL THROMBOPLASTIN TIME 74.8 seconds 23.2-36.1 H (BEAKER) (test code = 760) POCT-GLUCOSE [id number] 11:57:00 Test Item Value Reference Range Interpretation Comments POC-GLUCOSE METER 146 mg/dL 70-110 H TESTED AT [facility] [address] (BEAKER) (test code [facility] = 1538) [place] [address] POCT-GLUCOSE [id number] 05:37:00 Test Item Value Reference Range Interpretation Comments POC-GLUCOSE METER 139 mg/dL 70-110 H TESTED AT [facility] [address] (BEAKER) (test code [facility] = 1538) [place] [address] BASIC METABOLIC [id number] 04:04:00 Test Item Value Reference Range Interpretation [...] S NOT APPLICABLE FOR DIALYSIS PATIEN TS. [id number] 04:02:00 Test Item Value Reference Range Interpretation Comments PARTIAL THROMBOPLASTIN TIME 76.5 seconds 23.2-36.1 H (BEAKER) (test code = 760) CBC W/PLT COUNT & AUTO [id number] 03:41:00 Test Item Value Reference Range Interpretation [...] PERCENT (BEAKER) (test code = 2801) POCT-GLUCOSE [id number] 22:12:00 Test Item Value Reference Range Interpretation Comments POC-GLUCOSE METER 247 mg/dL 70-110 H TESTED AT [facility] [address] (BEAKER) (test code [facility] = 1538) [place] [address] [id number] 21:11:00 Test Item Value Reference Range Interpretation Comments PARTIAL THROMBOPLASTIN TIME 62.4 seconds 23.2-36.1 H (BEAKER) (test code = 760) [id number] 12:45:00 Test Item Value Reference Range Interpretation Comments PARTIAL THROMBOPLASTIN TIME 101.2 seconds 23.2-36.1 H (BEAKER) (test code = 760) POCT-GLUCOSE [id number] 11:48:00 Test Item Value Reference Range Interpretation Comments POC-GLUCOSE METER 259 mg/dL 70-[place] [address] [address] (BEAKER) (test code [facility] = 1538) [place] [address] POCT-GLUCOSE [id number] 05:38:00 Test Item Value Reference Range Interpretation Comments POC-GLUCOSE METER 121 mg/dL 70-110 H TESTED AT [facility] [address] (BEAKER) (test code [facility] = 1538) [place] [address] [id number] 05:33:00 Test Item Value Reference Range Interpretation Comments PARTIAL THROMBOPLASTIN TIME 108.5 seconds 23.2-36.1 H (BEAKER) (test code = 760) POCT-GLUCOSE [id number] 20:59:00 Test Item Value Reference Range Interpretation Comments POC-GLUCOSE METER 197 mg/dL 70-[place] [address] [address] (BEAKER) (test code [facility] = 1538) [place] [address] POCT-GLUCOSE [id number] 16:47:00 Test Item Value Reference Range Interpretation Comments POC-GLUCOSE METER 150 mg/dL 70-110 H TEST[facility] [address] (BEAKER) (test code [facility] = 1538) [place] [address] [id number] 15:21:00 Test Item Value Reference Range Interpretation Comments PARTIAL THROMBOPLASTIN TIME 79.9 seconds 23.2-36.1 H (BEAKER) (test code = 760) POCT-GLUCOSE [id number] 12:52:00 Test Item Value Reference Range Interpretation Comments POC-GLUCOSE METER 207 mg/dL 70-[place] [address] [address] (BEAKER) (test code [facility] = 1538) [place] [address] [id number] 09:17:00 Test Item Value Reference Range Interpretation Comments PARTIAL THROMBOPLASTIN TIME 95.7 seconds 23.2-36.1 H (BEAKER) (test code = 760) BASIC METABOLIC [id number] 02:36:00 Test Item Value Reference Range Interpretation [...] S NOT APPLICABLE FOR DIALYSIS PATIEN TS. [id number] 02:26:00 Test Item Value Reference Range Interpretation Comments PARTIAL THROMBOPLASTIN TIME 104.6 seconds 23.2-36.1 H (BEAKER) (test code = 760) CBC W/PLT COUNT & AUTO [id number] 02:18:00 Test Item Value Reference Range Interpretation [...] PERCENT (BEAKER) (test code = 2801) POCT-GLUCOSE [id number] 22:17:00 Test Item Value Reference Range Interpretation Comments POC-GLUCOSE METER 211 mg/dL 70-110 H TESTED AT [facility] [address] (BEAKER) (test code [facility] = 1538) [place] [address] [id number] 20:16:00 Test Item Value Reference Range Interpretation Comments PARTIAL THROMBOPLASTIN TIME 107.2 seconds 23.2-36.1 H (BEAKER) (test code = 760) POCT-GLUCOSE [id number] 16:24:00 Test Item Value Reference Range Interpretation Comments POC-GLUCOSE METER 167 mg/dL 70-110 H TESTED AT [facility] [address] (BEAKER) (test code [facility] = 1538) [place] [address] [id number] 14:17:00 Test Item Value Reference Range Interpretation Comments PARTIAL THROMBOPLASTIN TIME 96.3 seconds 23.2-36.1 H (BEAKER) (test code = 760) POCT-GLUCOSE [id number] 11:40:00 Test Item Value Reference Range Interpretation Comments POC-GLUCOSE METER 190 mg/dL 70-110 H TESTED AT [facility] [address] (BEAKER) (test code [facility] = 1538) [place] [address] [id number] 07:52:00 Test Item Value Reference Range Interpretation Comments PARTIAL THROMBOPLASTIN TIME 58.0 seconds 23.2-36.1 H (BEAKER) (test code = 760) BASIC METABOLIC [id number] 06:09:00 Test Item Value Reference Range Interpretation [...] S NOT APPLICABLE FOR DIALYSIS PATIEN TS. [id number] 05:53:00 Test Item Value Reference Range Interpretation Comments PARTIAL THROMBOPLASTIN TIME 138.1 seconds 23.2-36.1 H (BEAKER) (test code = 760) CBC W/PLT COUNT & AUTO [id number] 05:45:00 Test Item Value Reference Range Interpretation [...] GRANULOCYTES-RELATIVE PERCENT (BEAKER) (test code = 2801) [id number] 23:56:00 Test Item Value Reference Range Interpretation Comments PARTIAL THROMBOPLASTIN TIME 96.6 seconds 23.2-36.1 H (BEAKER) (test code = 760) POCT-GLUCOSE [id number] 21:22:00 Test Item Value Reference Range Interpretation Comments POC-GLUCOSE METER 160 mg/dL 70-110 H TESTED AT [facility] [address] (BEAKER) (test code [facility] = 1538) [place] [address] POCT-GLUCOSE [id number] 17:27:00 Test Item Value Reference Range Interpretation Comments POC-GLUCOSE METER 151 mg/dL 70-110 H TESTED AT [facility] [address] (BEAKER) (test code [facility] = 1538) [place] [address] [id number] 16:40:00 Test Item Value Reference Range Interpretation Comments PARTIAL THROMBOPLASTIN TIME 40.0 seconds 23.2-36.1 H (BEAKER) (test code = 760) POCT-GLUCOSE [id number] 13:43:00 Test Item Value Reference Range Interpretation Comments POC-GLUCOSE METER 164 mg/dL 70-110 H TESTED AT [facility] [address] (BEAKER) (test code [facility] = 1538) [place] [address] [id number] 13:34:00 Test Item Value Reference Range Interpretation Comments PARTIAL THROMBOPLASTIN TIME 141.6 seconds 23.2-36.1 H (BEAKER) (test code = 760) OCCULT BLOOD, [id number] 13:20:00 Test Item Value Reference Range Interpretation Comments FECAL OCCULT BLOOD (BEAKER) (test Negative Negative code = 618) BASIC METABOLIC [id number] 12:13:00 Test Item Value Reference Range Interpretation [...] APPLICABLE FOR DIALYSIS PATIEN TS. HEPATIC FUNCTION [id number] 12:13:00 Test Item Value Reference Range Interpretation [...] 6-50 347) CBC W/PLT COUNT & AUTO [id number] 11:47:00 Test Item Value Reference Range Interpretation [...] GRANULOCYTES-RELATIVE PERCENT (BEAKER) (test code = 2801) [id number] 06:33:00 Test Item Value Reference Range Interpretation Comments PARTIAL THROMBOPLASTIN TIME 102.3 seconds 23.2-36.1 H (BEAKER) (test code = 760) POCT-GLUCOSE [id number] 05:47:00 Test Item Value Reference Range Interpretation Comments POC-GLUCOSE METER 151 mg/dL 70-110 H TESTED AT [facility] [address] (BEAKER) (test code [facility] = 1538) [place] [address] BASIC METABOLIC [id number] 01:16:00 Test Item Value Reference Range Interpretation [...] S NOT APPLICABLE FOR DIALYSIS PATIEN TS. [id number] 01:06:00 Test Item Value Reference Range Interpretation Comments PARTIAL THROMBOPLASTIN TIME 46.8 seconds 23.2-36.1 H (BEAKER) (test code = 760) [id number] 23:18:00 Test Item Value Reference Range Interpretation Comments PARTIAL THROMBOPLASTIN TIME 177.9 seconds 23.2-36.1 HH (BEAKER) (test code = 760) POCT-GLUCOSE [id number] 22:05:00 Test Item Value Reference Range Interpretation Comments POC-GLUCOSE METER 204 mg/dL 70-110 H TESTED AT [facility] [address] (BEAKER) (test code [facility] = 1538) [place] [address] [id number] 16:35:00 Test Item Value Reference Range Interpretation Comments PARTIAL THROMBOPLASTIN TIME 47.9 seconds 23.2-36.1 H (BEAKER) (test code = 760) POCT-GLUCOSE [id number] 16:33:00 Test Item Value Reference Range Interpretation Comments POC-GLUCOSE METER 167 mg/dL 70-110 H TESTED AT [facility] [address] (BEAKER) (test code [facility] = 1538) [place] [address] [id number] 15:11:00 Test Item Value Reference Range Interpretation Comments PARTIAL THROMBOPLASTIN TIME 198.7 seconds 23.2-36.1 HH (BEAKER) (test code = 760) POCT-GLUCOSE [id number] 12:08:00 Test Item Value Reference Range Interpretation Comments POC-GLUCOSE METER 166 mg/dL 70-110 H TESTED AT [facility] [address] (BEAKER) (test code [facility] = 1538) [place] [address] [id number] 07:27:00 Test Item Value Reference Range Interpretation Comments PARTIAL THROMBOPLASTIN TIME 65.6 seconds 23.2-36.1 H (BEAKER) (test code = 760) [id number] 05:59:00 Test Item Value Reference Range Interpretation Comments PARTIAL THROMBOPLASTIN TIME 156.1 seconds 23.2-36.1 HH (BEAKER) (test code = 760) BASIC METABOLIC [id number] 05:54:00 Test Item Value Reference Range Interpretation [...] NOT APPLICABLE FOR DIALYSIS PATIEN TS. POCT-GLUCOSE [id number] 05:45:00 Test Item Value Reference Range Interpretation Comments POC-GLUCOSE METER 145 mg/dL 70-110 H TESTED AT [facility] [address] (BEAKER) (test code [facility] = 1538) [place] [address] CBC W/PLT COUNT & AUTO [id number] 05:36:00 Test Item Value Reference Range Interpretation [...] PERCENT (BEAKER) (test code = 2801) POCT-GLUCOSE [id number] 20:29:00 Test Item Value Reference Range Interpretation Comments POC-GLUCOSE METER 128 mg/dL 70-110 H TESTED AT [facility] [address] ([facility]) (test code [facility] = 1538) [place] [address] POCT-GLUCOSE [id number] 16:58:00 Test Item Value Reference Range Interpretation Comments POC-GLUCOSE METER 160 mg/dL 70-110 H TESTED AT [facility] [address] ([facility]) (test code [facility] = 1538) [place] [address] POCT-GLUCOSE [id number] 11:58:00 Test Item Value Reference Range Interpretation Comments POC-GLUCOSE METER 163 mg/dL 70-110 H TESTED AT [facility] [address] ([facility]) (test code [facility] = 1538) [place] [address] [id number] 05:25:00 Test Item Value Reference Range Interpretation Comments PARTIAL THROMBOPLASTIN TIME 79.6 seconds 23.2-36.1 H (BEAKER) (test code = 760) CBC W/PLT COUNT & AUTO [id number] 05:18:00 Test Item Value Reference Range Interpretation [...] GRANULOCYTES-RELATIVE PERCENT (BEAKER) (test code = 2801) [id number] 21:47:00 Test Item Value Reference Range Interpretation Comments PARTIAL THROMBOPLASTIN TIME 85.4 seconds 23.2-36.1 H (BEAKER) (test code = 760) POCT-GLUCOSE [id number] 16:24:00 Test Item Value Reference Range Interpretation Comments POC-GLUCOSE METER 189 mg/dL 70-110 H TESTED AT [facility] [address] ([facility]) (test code [facility] = 1538) [place] [address] [id number] 13:02:00 Test Item Value Reference Range Interpretation Comments PARTIAL THROMBOPLASTIN TIME 51.8 seconds 23.2-36.1 H (BEAKER) (test code = 760) POCT-GLUCOSE [id number] 11:41:00 Test Item Value Reference Range Interpretation Comments POC-GLUCOSE METER 169 mg/dL 70-110 H TESTED AT [facility] [address] ([facility]) (test code [facility] = 1538) [place] [address] VITAMIN D, [id number] 08:15:00 Test Item Value Reference Range Interpretation Comments VITAMIN D 25-OH (AKER) (test code 5.4 ng/mL 6.6-49.9 L = 2764) Effective 12/25/2016: Reference Range ChangeNew: 6.6-49.9 ng/mL Previous: 13.0-47.8 ng/mLRecommended Vitamin D Target Range: 30.0-40.0 ng/mLPOCT-GLUCOSE [id number] 06:20:00 Test Item Value Reference Range Interpretation Comments POC-GLUCOSE METER 158 mg/dL 70-110 H TESTED AT [facility] [address] ([facility]) (test code [facility] = 1538) [place] [address] HEPATIC FUNCTION [id number] 05:45:00 Test Item Value Reference Range Interpretation Comments TOTAL PROTEIN (BEAKER) 6.5 gm/dL 6.0-8.5 Speci men markedly (test code = 770) hemolyzed ALBUMIN (BEAKER) (test 1.8 g/dL 3.5-5.0 L Speci men markedly code = 1145) hemolyzed BILIRUBIN TOTAL 1.2 mg/dL 0.1-1.3 Specimen mar kedly (BEAKER) (test code = hemoly zed 377) BILIRUBIN DIRECT 0.1 mg/dL 0.0-0.5 Specimen ma rkedly (BEAKER) (test code = hemoly zed 706) ALKALINE PHOSPHATASE 142 U/L 30-115 H (BEAKER) (test code = 346) AST (SGOT) (BEAKER) 49 U/L 5-40 H Specimen markedly (test code = 353) hemolyzed ALT (SGPT) (BEAKER) 28 U/L 6-50 Specimen markedly (test code = 347) hemolyzed [id number] 05:30:00 Test Item Value Reference Range Interpretation Comments PARTIAL THROMBOPLASTIN TIME 63.3 seconds 23.2-36.1 H (BEAKER) (test code = 760) Prior to initiating heparinCBC W/PLT COUNT & AUTO [id number] 05:23:00 Test Item Value Reference Range Interpretation [...] GRANULOCYTES-RELATIVE PERCENT (BEAKER) (test code = 2801) [id number] 00:59:00 Test Item Value Reference Range Interpretation Comments PARTIAL THROMBOPLASTIN TIME 62.3 seconds 23.2-36.1 H (BEAKER) (test code = 760) POCT-GLUCOSE [id number] 21:34:00 Test Item Value Reference Range Interpretation Comments POC-GLUCOSE METER 196 mg/dL 70-110 H TESTED AT [facility] [address] (BEAKER) (test code [facility] = 1538) [place] [address] [id number] 18:14:00 Test Item Value Reference Range Interpretation Comments PARTIAL THROMBOPLASTIN TIME 82.3 seconds 23.2-36.1 H (BEAKER) (test code = 760) POCT-GLUCOSE [id number] 17:01:00 Test Item Value Reference Range Interpretation Comments POC-GLUCOSE METER 192 mg/dL 70-110 H TESTED AT [facility] [address] (BEAKER) (test code [facility] = 1538) [place] [address] POCT-GLUCOSE [id number] 13:29:00 Test Item Value Reference Range Interpretation Comments POC-GLUCOSE METER 207 mg/dL 70-110 H TESTED AT [facility] [address] (BEAKER) (test code [facility] = 1538) [place] [address] [id number] 12:48:00 Test Item Value Reference Range Interpretation Comments PARTIAL THROMBOPLASTIN TIME 63.3 seconds 23.2-36.1 H (BEAKER) (test code = 760) CBC W/PLT COUNT & AUTO [id number] 12:25:00 Test Item Value Reference Range Interpretation [...] PERCENT (BEAKER) (test code = 2801) POCT-GLUCOSE [id number] 06:40:00 Test Item Value Reference Range Interpretation Comments POC-GLUCOSE METER 166 mg/dL 70-110 H TESTED AT [facility] [address] ([facility]) (test code [facility] = 1538) [place] [address] BUN AND [id number] 06:07:00 Test Item Value Reference Range Interpretation [...] 12 noon Amikacin Blood level draw. Thank [id number] 05:48:00 Test Item Value Reference Range Interpretation Comments PARTIAL THROMBOPLASTIN TIME 60.0 seconds 23.2-36.1 H (BEAKER) (test code = 760) ANTI-NUCLEAR ANTIBODY (TAMMI)2017-11-20 00:24:00 Test Item Value Reference Range Interpretation Comments ANTI-NUCLEAR ANTIBODY (TAMMI) (BEAKER) Negative Negative (test code = 418) Test performed by IFA method.Test performed by IFA method.[id number] 23:01:00 Test Item Value Reference Range Interpretation Comments PARTIAL THROMBOPLASTIN TIME 58.3 seconds 23.2-36.1 H (BEAKER) (test code = 760) POCT-GLUCOSE [id number] 21:22:00 Test Item Value Reference Range Interpretation Comments POC-GLUCOSE METER 171 mg/dL 70-110 H TESTED AT [facility] [address] [facility] (test code [facility] = 1538) [place] [address] POCT-GLUCOSE [id number] 16:54:00 Test Item Value Reference Range Interpretation Comments POC-GLUCOSE METER 135 mg/dL 70-110 H TESTED AT [facility] [address] (BEAKER) (test code [facility] = 1538) [place] [address] PERIPHERAL BLOOD SMEAR - PATHOLOGIST [id number] 15:35:00 Test Item Value Reference Range Interpretation Comments PERIPHERAL SMR REVIEW Neutrophilic (BEAKER) (test code = leukocytosis with 2640) increased band forms and unremarkable WBC morphology. Normocytic anemia with unremarkable RBCs. Platelets unremarkable. No dysmorphic or blast forms seen. [id number] Nazario Becker M.D. (BEAKER) (test code = (electronic signature) 2849) (MANUAL DIFFERENTIAL)2017-11-19 15:31:00 Test Item Value Reference [...] (BEAKER) (test code = 1+ few 480) [id number] 15:21:00 Test Item Value Reference Range Interpretation Comments PARTIAL THROMBOPLASTIN TIME 39.3 seconds 23.2-36.1 H (BEAKER) (test code = 760) POCT-GLUCOSE [id number] 13:08:00 Test Item Value Reference Range Interpretation Comments POC-GLUCOSE METER 140 mg/dL 70-110 H TESTED AT [facility] [address] (BEAKER) (test code [facility] = 1538) [place] [address] CBC W/PLT COUNT & AUTO [id number] 09:33:00 Test Item Value Reference Range Interpretation [...] (BEAKER) (test code = 413) BUN AND [id number] 08:45:00 Test Item Value Reference Range Interpretation [...] 12 noon Amikacin Blood level draw. Thank [id number] 08:27:00 Test Item Value Reference Range Interpretation Comments PARTIAL THROMBOPLASTIN TIME 29.5 seconds 23.2-36.1 (BEAKER) (test code = 760) POCT-GLUCOSE [id number] 04:48:00 Test Item Value Reference Range Interpretation Comments POC-GLUCOSE METER 142 mg/dL 70-110 H TESTED AT [facility] [address] ([facility]) (test code [facility] = 1538) [place] [address] RHEUMATOID FACTOR AB, REFLEX TO [id number] 01:10:00 Test Item Value Reference Range Interpretation Comments RHEUMATOID FACTOR (BEAKER) (test Negative code = 573) [id number] 00:56:00 Test Item Value Reference Range Interpretation Comments PROTIME (BEAKER) (test code = 17.9 seconds 11.8-14.4 H 759) INR ([facility]) (test code = 370) 1.4 1.2-1.5 PARTIAL THROMBOPLASTIN TIME 48.9 seconds 23.2-36.1 H (AKER) (test code = 760) RECOMMENDED COUMADIN/WARFARIN INR THERAPY RANGESSTANDARD DOSE: 2.0 - 3.0 Includes: PROPHYLAXIS forvenous thrombosis, systemic embolization; TREATMENT for venous thrombosis and/or pulmonary embolus.HIGH RISK: Target INR is 2.5-3.5 for patients with mechanical heart valves.VENOUS DOPPLER LEGS, [id number] 22:05:00Reason for exam:->leukocytosis persistentFINAL REPORT CLINICAL HISTORY: [...] MDReport Verified Date/Time: 11/18/2017 22:05:25 Reading Location: [address] Reading Room POCT-GLUCOSE [id number] 20:56:00 Test Item Value Reference Range Interpretation Comments POC-GLUCOSE METER 111 mg/dL 70-110 H TESTED AT [facility] [address] ([facility]) (test code [facility] = 1538) [place] [address] AMIKACIN LEVEL, [id number] 17:26:00 Test Item Value Reference Range Interpretation Comments AMIKACIN, TROUGH ([facility]) (test 10.3 ug/mL 4.0-8.0 HH code = 1830) Therapeutic Range (ug/mL)Peak: 25.0-35.0Trough: 4.0-8.0 Toxic: >35.0VENOUS DOPPLER ARMS, [id number] 16:59:00Reason for exam:->swelling right handAddendum BeginsREPORT STATUS:A Addendum:A left-sided PICC is visualized. End of addendum. Signed: Dangelo Proctor MDReport Verified Date/Time: 11/18/2017 16:59:45 Reading Location: [facility] Radiology Reading RoomAddendum EndsFINAL REPORT Bilateral [...] described above. These findings were communicated to MAG Neff at 3:30 PM. Signed: Dangelo Proctor MDReport Verified Date/Time: 11/18/2017 15:36:41 Reading Location: [facility] Reading Room POCT-GLUCOSE [id number] 16:58:00 Test Item Value Reference Range Interpretation Comments POC-GLUCOSE METER 100 mg/dL 70-110 TESTED AT [facility] [address] ([facility]) (test code [facility] = 1538) [place] [address] POCT-GLUCOSE [id number] 11:30:00 Test Item Value Reference Range Interpretation Comments POC-GLUCOSE METER 119 mg/dL 70-110 H TESTED AT [facility] [address] ([facility]) (test code [facility] = 1538) [place] [address] HEPATITIS B SURFACE [id number] 11:18:00 Test Item Value Reference Range Interpretation Comments HEPATITIS B SURFACE ANTIBODY 436.5 mIU/mL <8.0 H ([facility]) (test code = 647) HEPATITIS C [id number] 11:18:00 Test Item Value Reference Range Interpretation Comments HEPATITIS C ANTIBODY ([facility]) Nonreactive Nonreactive (test code = 367) AMIKACIN LEVEL, [id number] 11:03:00 Test Item Value Reference Range Interpretation Comments AMIKACIN, PEAK (BEAKER) (test code 26.0 ug/mL 25.0-35.0 = 1831) Therapeutic Range (ug/mL)Peak: 25.0-35.0Trough: 4.0-8.0 Toxic: >35.0 SURGICALLY OBTAINED CULTURE + GRAM [id number] 08:25:00 Test Item Value Reference Interpretation Comments Range CULTURE ([facility]) COAGULASE NEGATIVE A From Broth Only (test [...] No organisms seen (BEAKER) (test code = 311078) ANAEROBIC [id number] 07:53:00 Test Item Value Reference Range Interpretation Comments CULTURE (BEAKER) (test No anaerobes isolated code = 1095) GRAM STAIN RESULT 1+ WBCs (BEAKER) (test code = 1123) GRAM STAIN RESULT No organisms seen (BEAKER) (test code = 47798) POCT-GLUCOSE [id number] 06:37:00 Test Item Value Reference Range Interpretation Comments POC-GLUCOSE METER 135 mg/dL 70-110 H TESTED AT [facility] [address] [facility] (test code [facility] = 1538) [place] [address] HIV-1 ANTIGEN WITH HIV-1/2 [id number] 05:51:00 Test Item Value Reference Range Interpretation Comments HIV-1 ANTIGEN WITH HIV 1\\T\\2 Nonreactive Nonreactive ANTIBODY (2) (BEAKER) (test code = 2586) HEPATITIS B SURFACE [id number] 05:46:00 Test Item Value Reference Range Interpretation Comments HEPATITIS B SURFACE ANTIGEN (2) Nonreactive Nonreactive (BEAKER) (test code = 2585) CBC W/PLT COUNT & AUTO [id number] 05:11:00 Test Item Value Reference Range Interpretation [...] code = 2801) Smear reviewed. Results confirmed.POCT-GLUCOSE [id number] 23:01:00 Test Item Value Reference Range Interpretation Comments POC-GLUCOSE METER 111 mg/dL 70-110 H TESTED AT [facility] [address] (BEAKER) (test code [facility] = 1538) [place] [address] POCT-GLUCOSE [id number] 17:15:00 Test Item Value Reference Range Interpretation Comments POC-GLUCOSE METER 100 mg/dL 70-110 TESTED AT [facility] [address] (BEAKER) (test code [facility] = 1538) [place] [address] C-REACTIVE [id number] 14:34:00 Test Item Value Reference Range Interpretation Comments C-REACTIVE PROTEIN (BEAKER) (test 35.06 mg/dL 0.00-0.50 H code = 676) POCT-GLUCOSE [id number] 12:50:00 Test Item Value Reference Range Interpretation Comments POC-GLUCOSE METER 221 mg/dL 70-110 H TESTED AT [facility] [address] (BEAKER) (test code [facility] = 1538) [place] [address] CBC W/PLT COUNT & AUTO [id number] 10:56:00 Test Item Value Reference Range Interpretation [...] PERCENT (BEAKER) (test code = 2801) POCT-GLUCOSE [id number] 10:03:00 Test Item Value Reference Range Interpretation Comments POC-GLUCOSE METER 104 mg/dL 70-110 TESTED AT [facility] [address] (BEAKER) (test code [facility] = 1538) [place] [address] BASIC METABOLIC [id number] 04:51:00 Test Item Value Reference Range Interpretation [...] NOT APPLICABLE FOR DIALYSIS PATIEN TS. POCT-GLUCOSE [id number] 20:41:00 Test Item Value Reference Range Interpretation Comments POC-GLUCOSE METER 127 mg/dL 70-110 H TESTED AT [facility] [address] ([facility]) (test code [facility] = 1538) [place] [address] POCT-GLUCOSE [id number] 17:03:00 Test Item Value Reference Range Interpretation Comments POC-GLUCOSE METER 145 mg/dL 70-110 H TESTED AT [facility] [address] ([facility]) (test code [facility] = 1538) [place] [address] [id number] 12:39:00 Test Item Value Reference Range Interpretation Comments PROCALCITONIN ([facility]) (test code 1.27 ng/mL <0.05 H = 3036) SEPSIS RISK (ng/mL)Low: 0.05-0.50Intermediate: 0.51-2.00High: >=2.01POCT-GLUCOSE [id number] 11:58:00 Test Item Value Reference Range Interpretation Comments POC-GLUCOSE METER 120 mg/dL 70-110 H TESTED AT [facility] [address] ([facility]) (test code [facility] = 1538) [place] [address] CBC W/PLT COUNT & AUTO [id number] 09:50:00 Test Item Value Reference Range Interpretation Comments WHITE BLOOD CELL COUNT 34.2 K/ L 4.0-10.0 H Smear reviewed. ([facility]) (test code = Result s confirmed. 775) RED BLOOD CELL COUNT 3.21 M/ L 4.00-5.00 L (AKER) (test code = 761) HEMOGLOBIN (BEAKER) 8.6 [...] PERCENT (BEAKER) (test code = 2801) POCT-GLUCOSE [id number] 06:32:00 Test Item Value Reference Range Interpretation Comments POC-GLUCOSE METER 124 mg/dL 70-110 H TESTED AT [facility] [address] (BEAKER) (test code [facility] = 1538) [place] [address] BASIC METABOLIC [id number] 06:27:00 Test Item Value Reference Range Interpretation [...] APPLICABLE FOR DIALYSIS PATIEN TS. BUN AND [id number] 06:26:00 Test Item Value Reference Range Interpretation [...] APPLICABLE FOR DIALYSIS PATIEN TS. HEMOGLOBIN AND [id number] 06:03:00 Test Item Value Reference Range Interpretation Comments HEMOGLOBIN (BEAKER) (test code = 8.6 GM/DL 12.0-15.5 L 410) HEMATOCRIT (BEAKER) (test code = 25.9 % 36.0-46.0 L 411) CT, CHEST, WITHOUT [id number] 22:51:00FINAL REPORT CLINICAL HISTORY: Leukocytosis FINDINGS: Multiple [...] Verified Date/Time: 11/15/2017 22:51:35 Reading Location: [address] [place], [id number] 22:51:00FINAL REPORT CLINICAL HISTORY: Leukocytosis FINDINGS: Multiple [...] Verified Date/Time: 11/15/2017 22:51:35 Reading Location: [address] Reading Room POCT-GLUCOSE [id number] 21:14:00 Test Item Value Reference Range Interpretation Comments POC-GLUCOSE METER 128 mg/dL 70-110 H TESTED AT [address] ([facility]) (test code [facility] = 1538) [place] [address] POCT-GLUCOSE [id number] 17:10:00 Test Item Value Reference Range Interpretation Comments POC-GLUCOSE METER 109 mg/dL 70-110 TESTED AT [address] ([facility]) (test code [facility] = 1538) [place] [address] POCT-GLUCOSE [id number] 12:15:00 Test Item Value Reference Range Interpretation Comments POC-GLUCOSE METER 116 mg/dL 70-110 H TESTED AT [address] ([facility]) (test code [facility] = 1538) [place] [address] SPIN/CONCENTRATION [id number] 10:39:00 Test Item Value Reference Range Interpretation Comments CONCENTRATION CHARGED ([facility]) (test Done code = 2657) CBC W/PLT COUNT & AUTO [id number] 09:22:00 Test Item Value Reference Range Interpretation Comments WHITE BLOOD CELL COUNT 34.3 K/ L 4.0-10.0 H Smear reviewed. ([facility]) (test code = Result s [...] (test code = 2801) TYPE AND SCREEN, [id number] 08:18:00 Test Item Value Reference Range Interpretation Comments ABO/RH AUTOMATED (BEAKER) (test B POSITIVE code = 2260) AB SCREEN (BEAKER) (test code = NEGATIVE 923) ANAEROBIC [id number] 07:55:00 Test Item Value Reference Range Interpretation Comments CULTURE (BEAKER) (test No anaerobes isolated code = 1095) BASIC METABOLIC [id number] 05:40:00 Test Item Value Reference Range Interpretation [...] APPLICABLE FOR DIALYSIS PATIEN TS. BUN AND [id number] 05:37:00 Test Item Value Reference Range Interpretation [...] APPLICABLE FOR DIALYSIS PATIEN TS. VANCOMYCIN LEVEL, [id number] 05:36:00 Test Item Value Reference Range Interpretation Comments VANCOMYCIN TROUGH (BEAKER) (test 17.5 ug/mL 10.0-20.0 code = 522) HEMOGLOBIN AND [id number] 05:23:00 Test Item Value Reference Range Interpretation Comments HEMOGLOBIN (BEAKER) (test code = 6.4 GM/DL 12.0-15.5 L 410) HEMATOCRIT (BEAKER) (test code = 19.3 % 36.0-46.0 LL 411) POCT-GLUCOSE [id number] 16:12:00 Test Item Value Reference Range Interpretation Comments POC-GLUCOSE METER 129 mg/dL 70-110 H TESTED AT [facility] [address] (BEAKER) (test code [facility] = 1538) [place] [address] POCT-GLUCOSE [id number] 12:07:00 Test Item Value Reference Range Interpretation Comments POC-GLUCOSE METER 114 mg/dL 70-110 H TESTED AT [facility] [address] (BEAKER) (test code [facility] = 1538) [place] [address] POCT-GLUCOSE [id number] 10:00:00 Test Item Value Reference Range Interpretation Comments POC-GLUCOSE METER 97 mg/dL 70-110 TESTED AT [facility] [address] (BEAKER) (test code = [facility] 1538) [place] [address] SURGICALLY OBTAINED CULTURE + GRAM [id number] 09:36:00 Test Item Value Reference Range Interpretation Comments CULTURE (BEAKER) (test code No growth = 1095) GRAM STAIN RESULT (BEAKER) <1+ WBCs (test code = 1123) GRAM STAIN RESULT (BEAKER) No organisms seen (test code = 01987) POCT-GLUCOSE [id number] 06:06:00 Test Item Value Reference Range Interpretation Comments POC-GLUCOSE METER 105 mg/dL 70-110 TESTED AT [facility] [address] (BEAKER) (test code [facility] = 1538) [place] [address] BASIC METABOLIC [id number] 05:55:00 Test Item Value Reference Range Interpretation Comments SODIUM (BEAKER) 138 meq/L 135-148 (test code = 381) POTASSIUM (BEAKER) 4.0 meq/L 3.5-5.5 (test code = 379) CHLORIDE (BEAKER) 108 meq/L 98-106 H (test code = 382) CO2 (BEAKER) (test 23 meq/L code = 355) BLOOD UREA NITROGEN 18 [...] PATIEN TS. CBC W/PLT COUNT & AUTO [id number] 05:35:00 Test Item Value Reference Range Interpretation [...] PERCENT (BEAKER) (test code = 2801) POCT-GLUCOSE [id number] 21:11:00 Test Item Value Reference Range Interpretation Comments POC-GLUCOSE METER 94 mg/dL 70-110 TESTED AT [address] ([facility]) (test code = [facility] 1538) [place] [address] POCT-GLUCOSE [id number] 16:51:00 Test Item Value Reference Range Interpretation Comments POC-GLUCOSE METER 121 mg/dL 70-110 H TESTED AT [address] ([facility]) (test code [facility] = 1538) [place] [address] POCT-GLUCOSE [id number] 15:10:00 Test Item Value Reference Range Interpretation Comments POC-GLUCOSE METER 97 mg/dL 70-110 TESTED AT [address] ([facility]) (test code = [facility] 1538) [place] [address] [id number] 10:17:00 Test Item Value Reference Range Interpretation Comments PROCALCITONIN ([facility]) (test code 1.41 ng/mL <0.05 H = 3036) SEPSIS RISK (ng/mL)Low: 0.05-0.50Intermediate: 0.51-2.00High: >=2.01HEPATIC FUNCTION [id number] 09:52:00 Test Item Value Reference Range Interpretation Comments TOTAL PROTEIN ([facility]) (test code = 5.2 gm/dL 6.0-8.5 L [...] code = 12 U/L 6-50 347) POCT-GLUCOSE [id number] 05:57:00 Test Item Value Reference Range Interpretation Comments POC-GLUCOSE METER 87 mg/dL 70-110 TESTED AT [facility] [address] (BEAKER) (test code = [facility] 1538) [place] [address] BASIC METABOLIC [id number] 05:34:00 Test Item Value Reference Range Interpretation [...] PATIEN TS. CBC W/PLT COUNT & AUTO [id number] 05:33:00 Test Item Value Reference Range Interpretation [...] (BEAKER) (test code = 2801) BUN AND [id number] 05:32:00 Test Item Value Reference Range Interpretation Comments BLOOD UREA NITROGEN 21 mg/dL 10-26 (BEAKER) (test code = 354) CREATININE (BEAKER) 0.79 mg/dL 0.50-1.20 (test code = 358) EGFR (BEAKER) (test 91 mL/min/1.73 ESTIMA YUMIKO GFR IS code = 1092) sq m NOT ACCURATE CREATININE CLEARANCE IN PREDICTING GLOMERULAR FILTRATION RATE . ESTIMATED GFR I S NOT APPLICABLE FOR DIALYSIS PATIEN TS. BLOOD [id number] 04:00:00 Test Item Value Reference Range Interpretation Comments CULTURE (BEAKER) (test No growth in 5 days code = 1095) BLOOD [id number] 01:00:00 Test Item Value Reference Range Interpretation Comments CULTURE (BEAKER) (test No growth in 5 days code = 1095) POCT-GLUCOSE [id number] 21:25:00 Test Item Value Reference Range Interpretation Comments POC-GLUCOSE METER 135 mg/dL 70-110 H TESTED AT [facility] [address] (BEROGELIO) (test code [facility] = 1538) [place] [address] ANG, NON-TUNNELED CATH/PICC >5 Y.O.2017-11-12 17:59:00Reason for [...] MDReport Verified Date/Time: 11/12/2017 17:59:19 Reading Location: [facility] Radiology Reading Room POCT-GLUCOSE [id number] 16:37:00 Test Item Value Reference Range Interpretation Comments POC-GLUCOSE METER 98 mg/dL 70-110 TESTED AT [facility] [address] (BEAKER) (test code = [facility] 1538) [place] [address] PERIPHERAL BLOOD SMEAR - PATH REVIEW LAB [id number] 08:14:00 Test Item Value Reference Range Interpretation Comments PERIPHERAL SMR REVIEW Neutrophilic (BEAKER) (test code = leukocytosis and 2640) microcytic anemia. No blast forms seen. [id number] Nazario Becker M.D. (BEAKER) (test code = (electronic signature) 2793) (MANUAL [...] few 963) BODY FLUID CULTURE + GRAM [id number] 08:10:00 Test Item Value Reference Range Interpretation Comments CULTURE (BEAKER) (test No growth code = 1095) GRAM STAIN RESULT 3+ White blood cells (BEAKER) (test code = seen 1123) GRAM STAIN RESULT No organisms seen (BEAKER) (test code = 19185) POCT-GLUCOSE [id number] 06:18:00 Test Item Value Reference Range Interpretation Comments POC-GLUCOSE METER 113 mg/dL 70-110 H TESTED AT [facility] [address] (BEAKER) (test code [facility] = 1538) [place] [address] CBC W/PLT COUNT & AUTO [id number] 04:40:00 Test Item Value Reference Range Interpretation [...] (BEAKER) (test code = 2801) BASIC METABOLIC [id number] 03:56:00 Test Item Value Reference Range Interpretation [...] 358) GLUCOSE RANDOM 111 mg/dL 70-110 H ([facility]) (test code = 652) CALCIUM (AKER) 7.5 mg/dL 8.5-10.5 L (test code = 697) EGFR (BEAKER) (test 88 mL/min/1.73 ESTIMA YUMIKO GFR IS code = 1092) sq m NOT ACCURATE CREATININE CLEARANCE IN PREDICTING GLOMERULAR FILTRATION RATE . ESTIMATED GFR I S NOT APPLICABLE FOR DIALYSIS PATIEN TS. BUN AND [id number] 03:55:00 Test Item Value Reference Range Interpretation Comments BLOOD UREA NITROGEN 19 mg/dL 10-26 ([facility]) (test code = 354) CREATININE (AKER) 0.81 mg/dL 0.50-1.20 (test code = 358) EGFR (BEAKER) (test 88 mL/min/1.73 ESTIMA YUMIKO GFR IS code = 1092) sq m NOT ACCURATE CREATININE CLEARANCE IN PREDICTING GLOMERULAR FILTRATION RATE . ESTIMATED GFR I S NOT APPLICABLE FOR DIALYSIS PATIEN TS. POCT-GLUCOSE [id number] 20:51:00 Test Item Value Reference Range Interpretation Comments POC-GLUCOSE METER 151 mg/dL 70-110 H TESTED AT [facility] [address] ([facility]) (test code [facility] = 1538) [place] [address] POCT-GLUCOSE [id number] 17:20:00 Test Item Value Reference Range Interpretation Comments POC-GLUCOSE METER 101 mg/dL 70-110 TESTED AT [facility] [address] ([facility]) (test code [facility] = 1538) [place] [address] SPIN/CONCENTRATION [id number] 15:42:00 Test Item Value Reference Range Interpretation Comments CONCENTRATION CHARGED ([facility]) (test Done code = 2657) POCT-GLUCOSE [id number] 11:34:00 Test Item Value Reference Range Interpretation Comments POC-GLUCOSE METER 109 mg/dL 70-110 TESTED AT [facility] [address] ([facility]) (test code [facility] = 1538) [place] [address] VANCOMYCIN LEVEL, [id number] 09:14:00 Test Item Value Reference Range Interpretation Comments VANCOMYCIN TROUGH ([facility]) (test 10.6 ug/mL 10.0-20.0 code = 522) BASIC METABOLIC [id number] 05:59:00 Test Item Value Reference Range Interpretation [...] APPLICABLE FOR DIALYSIS PATIEN TS. BUN AND [id number] 05:58:00 Test Item Value Reference Range Interpretation Comments BLOOD UREA NITROGEN 17 mg/dL 10-26 (BEAKER) (test code = 354) CREATININE (BEAKER) 0.80 mg/dL 0.50-1.20 (test code = 358) EGFR (BEAKER) (test 90 mL/min/1.73 ESTIMA YUMIKO GFR IS code = 1092) sq m NOT ACCURATE CREATININE CLEARANCE IN PREDICTING GLOMERULAR FILTRATION RATE . ESTIMATED GFR I S NOT APPLICABLE FOR DIALYSIS PATIEN TS. POCT-GLUCOSE [id number] 05:49:00 Test Item Value Reference Range Interpretation Comments POC-GLUCOSE METER 121 mg/dL 70-110 H TESTED AT [facility] [address] (BEAKER) (test code [facility] = 1538) [place] [address] CBC W/PLT COUNT & AUTO [id number] 05:43:00 Test Item Value Reference Range Interpretation [...] PERCENT (BEAKER) (test code = 2801) POCT-GLUCOSE [id number] 00:07:00 Test Item Value Reference Range Interpretation Comments POC-GLUCOSE METER 150 mg/dL 70-110 H TESTED AT [facility] [address] ([facility]) (test code [facility] = 1538) [place] [address] RAD, HIP, 1 VIEW, [id number] 23:51:00Reason for exam:->postopFINAL REPORT Right hip. HISTORY: Postoperative. COMPARISON STUDY: October 29, 2017. FINDINGS: A single frontal view of the right hip demonstrates a hemiarthroplasty in place. No cement is identified. There is no evidence of fracture or malalignment on this single projection. Signed: Alexandrea Blancoeport Verified Date/Time: 11/10/2017 23:51:24 Reading Location: [address] Ortho Consult Reading Room RAD, PELVIS, 1 OR 2 [id number] 23:22:00Reason for exam:->Hip ArthroplastyReason for exam:->X-Table Lateral during OR. Sterile FieldFINAL REPORT Pelvis. HISTORY: Hip arthroplasty. COMPARISON STUDY: CT scan dated November 07, 2017. FINDINGS: Two views of the pelvis are suboptimal in appearance. A right hemiarthroplasty seen in place with no obvious fracture or malalignment on the provided views. Assessment for fractures is limited. Signed: Alexandrea Blancoort Verified Date/Time: 11/10/2017 23:22:52 Reading Location: [address] Ortho Consult Reading Room POCT-GLUCOSE [id number] 22:54:00 Test Item Value Reference Range Interpretation Comments POC-GLUCOSE METER 140 mg/dL 70-110 H TESTED AT [facility] [address] [facility] (test code [facility] = 1538) [place] [address] POCT-GLUCOSE [id number] 16:57:00 Test Item Value Reference Range Interpretation Comments POC-GLUCOSE METER 98 mg/dL 70-110 TESTED AT [facility] [address] [facility] (test code = [facility] 1538) [place] [address] POCT-GLUCOSE [id number] 12:41:00 Test Item Value Reference Range Interpretation Comments POC-GLUCOSE METER 111 mg/dL 70-110 H TESTED AT [facility] [address] (BEAKER) (test code [facility] = 1538) [place] [address] (MANUAL DIFFERENTIAL)2017-11-10 07:35:00 Test Item Value Reference [...] = 762) CBC W/PLT COUNT & AUTO [id number] 07:32:00 Test Item Value Reference Range Interpretation [...] 0-0 CELLS (BEAKER) (test code = 413) [id number] 07:25:00 Test Item Value Reference Range Interpretation Comments PHOSPHORUS (BEAKER) (test code = 3.5 mg/dL 2.5-4.5 604) [id number] 07:25:00 Test Item Value Reference Range Interpretation Comments MAGNESIUM (BEAKER) (test code = 1.7 mg/dL 1.5-3.0 627) BASIC METABOLIC [id number] 07:25:00 Test Item Value Reference Range Interpretation [...] 8.5-10.5 L (test code = 697) EGFR ([facility]) (test 77 mL/min/1.73 ESTIMA YUMIKO GFR IS code = 1092) sq m NOT ACCURATE CREATININE CLEARANCE IN PREDICTING GLOMERULAR FILTRATION RATE . ESTIMATED GFR I S NOT APPLICABLE FOR DIALYSIS PATIEN TS. POCT-GLUCOSE [id number] 06:45:00 Test Item Value Reference Range Interpretation Comments POC-GLUCOSE METER 121 mg/dL 70-110 H TESTED AT [facility] [address] ([facility]) (test code [facility] = 1538) [place] [address] POCT-GLUCOSE [id number] 22:14:00 Test Item Value Reference Range Interpretation Comments POC-GLUCOSE METER 124 mg/dL 70-110 H TESTED AT [facility] [address] ([facility]) (test code [facility] = 1538) [place] [address] VANCOMYCIN LEVEL, [id number] 21:02:00 Test Item Value Reference Range Interpretation Comments VANCOMYCIN TROUGH ([facility]) (test 9.6 ug/mL 10.0-20.0 L code = 522) POCT-GLUCOSE [id number] 17:22:00 Test Item Value Reference Range Interpretation Comments POC-GLUCOSE METER 98 mg/dL 70-110 TESTED AT [facility] [address] ([facility]) (test code = [facility] 1538) [place] [address] POCT-GLUCOSE [id number] 11:36:00 Test Item Value Reference Range Interpretation Comments POC-GLUCOSE METER 127 mg/dL 70-110 H TESTED AT [facility] [address] ([facility]) (test code [facility] = 1538) [place] [address] WOUND CULTURE + GRAM [id number] 11:05:00 Test Item Value Reference Interpretation Comments Range CULTURE ([facility]) (test ENTEROBACTER A <1+ E nterobacter code [...] No organisms seen (BEAKER) (test code = 917474) POCT-GLUCOSE [id number] 05:54:00 Test Item Value Reference Range Interpretation Comments POC-GLUCOSE METER 116 mg/dL 70-110 H TESTED AT [facility] [address] (BEAKER) (test code [facility] = 1538) [place] [address] [id number] 03:42:00 Test Item Value Reference Range Interpretation Comments PHOSPHORUS (BEAKER) (test code = 3.8 mg/dL 2.5-4.5 604) [id number] 03:42:00 Test Item Value Reference Range Interpretation Comments MAGNESIUM (BEAKER) (test code = 1.9 mg/dL 1.5-3.0 627) BASIC METABOLIC [id number] 03:42:00 Test Item Value Reference Range Interpretation [...] PATIEN TS. CBC W/PLT COUNT & AUTO [id number] 03:21:00 Test Item Value Reference Range Interpretation [...] PERCENT (BEAKER) (test code = 2801) POCT-GLUCOSE [id number] 20:55:00 Test Item Value Reference Range Interpretation Comments POC-GLUCOSE METER 122 mg/dL 70-110 H TESTED AT [facility] [address] (BEAKER) (test code [facility] = 1538) [place] [address] POCT-GLUCOSE [id number] 16:19:00 Test Item Value Reference Range Interpretation Comments POC-GLUCOSE METER 136 mg/dL 70-110 H TESTED AT [facility] [address] (BEAKER) (test code [facility] = 1538) [place] [address] HEMOGLOBIN AND [id number] 14:19:00 Test Item Value Reference Range Interpretation Comments HEMOGLOBIN (BEAKER) (test code = 8.1 GM/DL 12.0-15.5 L 410) HEMATOCRIT (BEAKER) (test code = 24.9 % 36.0-46.0 L 411) POCT-GLUCOSE [id number] 12:13:00 Test Item Value Reference Range Interpretation Comments POC-GLUCOSE METER 142 mg/dL 70-110 H TESTED AT [facility] [address] (BEAKER) (test code [facility] = 1538) [place] [address] POCT-GLUCOSE [id number] 06:02:00 Test Item Value Reference Range Interpretation Comments POC-GLUCOSE METER 109 mg/dL 70-110 TESTED AT [facility] [address] (BEAKER) (test code [facility] = 1538) [place] [address] POCT-GLUCOSE [id number] 05:38:00 Test Item Value Reference Range Interpretation Comments POC-GLUCOSE METER 150 mg/dL 70-110 H TESTED AT [facility] [address] (BEAKER) (test code [facility] = 1538) [place] [address] TYPE AND SCREEN, [id number] 03:11:00 Test Item Value Reference Range Interpretation Comments ABO/RH AUTOMATED (BEAKER) (test B Positive code = 2260) AB SCREEN (BEAKER) (test code = Negative 923) HEMOGLOBIN AND [id number] 02:41:00 Test Item Value Reference Range Interpretation Comments HEMOGLOBIN (BEAKER) (test code = 5.9 GM/DL 12.0-15.5 LL 410) HEMATOCRIT (BEAKER) (test code = 18.2 % 36.0-46.0 LL 411) COMPREHENSIVE METABOLIC [id number] 01:43:00 Test Item Value Reference Range Interpretation [...] S NOT APPLICABLE FOR DIALYSIS PATIEN TS. [id number] 01:36:00 Test Item Value Reference Range Interpretation Comments PHOSPHORUS (BEAKER) (test code = 3.3 mg/dL 2.5-4.5 604) [id number] 01:36:00 Test Item Value Reference Range Interpretation Comments MAGNESIUM (BEAKER) (test code = 1.9 mg/dL 1.5-3.0 627) LACTIC ACID, VENOUS, WHOLE [id number] 01:29:00 Test Item Value Reference Range Interpretation Comments LACTATE BLOOD VENOUS (2) (BEAKER) 0.8 mmol/L 0.5-2.2 (test code = 2872) Effective 07/19/2015: Units/Reference Range ChangeNew: 0.5-2.2 mmol/L Previous: 5-20 mg/dLCBC W/PLT COUNT & AUTO [id number] 01:25:00 Test Item Value Reference Range Interpretation [...] PERCENT (BEAKER) (test code = 2801) POCT-GLUCOSE [id number] 21:52:00 Test Item Value Reference Range Interpretation Comments POC-GLUCOSE METER 113 mg/dL 70-110 H TESTED AT [facility] [address] [facility] (test code [facility] = 1538) [place] [address] CT, EXTREMITY, LOWER WITHOUT CONTRAST, [id number] 19:15:00FINAL REPORT CT scan of the right [...] seen within this abscess. Signed: Alexandrea Blanco MDReport Verified Date/Time: 11/07/2017 19:15:59 Reading Location: [facility] B1 C013W Consult Reading Room RAD, HIP, 2 VIEWS, [id number] 16:19:00Reason for exam:->HIP PAIN FINAL REPORT INDICATION:Right [...] Bauer Verified Date/Time: 11/07/2017 16:19:47 Reading Location: [facility] Women CBC W/PLT COUNT & AUTO [id number] 16:00:00 Test Item Value Reference Range Interpretation [...] (BEAKER) (test code Normal = 762) C-REACTIVE [id number] 15:30:00 Test Item Value Reference Range Interpretation Comments C-REACTIVE PROTEIN (BEAKER) (test 47.39 mg/dL 0.00-0.50 H code = 676) COMPREHENSIVE METABOLIC [id number] 15:30:00 Test Item Value Reference Range Interpretation [...] APPLICABLE FOR DIALYSIS PATIEN TS. BASIC METABOLIC [id number] 06:26:00 Test Item Value Reference Range Interpretation [...] PATIEN TS. CBC W/PLT COUNT & AUTO [id number] 06:12:00 Test Item Value Reference Range Interpretation [...] L 0.00-0.20 (test code = 417) POCT-GLUCOSE [id number] 05:55:00 Test Item Value Reference Range Interpretation Comments POC-GLUCOSE METER 120 mg/dL 70-110 H TESTED AT [facility] [address] (BEAKER) (test code [facility] = 1538) [place] [address] POCT-GLUCOSE [id number] 21:07:00 Test Item Value Reference Range Interpretation Comments POC-GLUCOSE METER 121 mg/dL 70-110 H TESTED AT [facility] [address] (BEAKER) (test code [facility] = 1538) [place] [address] POCT-GLUCOSE [id number] 17:45:00 Test Item Value Reference Range Interpretation Comments POC-GLUCOSE METER 131 mg/dL 70-110 H TESTED AT [facility] [address] (BEAKER) (test code [facility] = 1538) [place] [address] HEMOGLOBIN AND [id number] 14:26:00 Test Item Value Reference Range Interpretation Comments HEMOGLOBIN (BEAKER) (test code = 7.9 GM/DL 12.0-15.0 L 410) HEMATOCRIT (BEAKER) (test code = 24.6 % 36.0-45.0 L 411) POCT-GLUCOSE [id number] 11:22:00 Test Item Value Reference Range Interpretation Comments POC-GLUCOSE METER 134 mg/dL 70-110 H TESTED AT [facility] [address] (BEAKER) (test code [facility] [place] = 1538) [place] [address] BASIC METABOLIC [id number] 05:16:00 Test Item Value Reference Range Interpretation [...] APPLICABLE FOR DIALYSIS PATIEN TS. Specimen recollected. [id number] 04:56:00 Test Item Value Reference Range Interpretation Comments POC-GLUCOSE METER 141 mg/dL 70-110 H TESTED AT [facility] [address] (BEAKER) (test code [facility] = 1538) [place] [address] HEMOGLOBIN AND [id number] 04:10:00 Test Item Value Reference Range Interpretation [...] few 965) CBC W/PLT COUNT & AUTO [id number] 21:34:00 Test Item Value Reference Range Interpretation [...] 6.5-10.5 (BEAKER) (test code = 754) POCT-GLUCOSE [id number] 21:17:00 Test Item Value Reference Range Interpretation Comments POC-GLUCOSE METER 126 mg/dL 70-110 H TESTED AT [facility] [address] (BEAKER) (test code [facility] = 1538) [place] [address] POCT-GLUCOSE [id number] 18:04:00 Test Item Value Reference Range Interpretation Comments POC-GLUCOSE METER 117 mg/dL 70-110 H TESTED AT [facility] [address] (BEAKER) (test code [facility] = 1538) [place] [address] POCT-GLUCOSE [id number] 11:38:00 Test Item Value Reference Range Interpretation Comments POC-GLUCOSE METER 133 mg/dL 70-[address] [place] [address] [address] (BEAKER) (test code [facility] = 1538) [place] [address] BASIC METABOLIC [id number] 04:20:00 Test Item Value Reference Range Interpretation [...] APPLICABLE FOR DIALYSIS PATIEN TS. HEMOGLOBIN AND [id number] 04:11:00 Test Item Value Reference Range Interpretation Comments HEMOGLOBIN (BEAKER) (test code = 8.1 GM/DL 12.0-15.0 L 410) HEMATOCRIT (BEAKER) (test code = 25.6 % 36.0-45.0 L 411) POCT-GLUCOSE [id number] 04:03:00 Test Item Value Reference Range Interpretation Comments POC-GLUCOSE METER 151 mg/dL 70-110 H TESTED AT [facility] [address] (BEAKER) (test code [facility] = 1538) [place] [address] RAD, HIP, 1 VIEW, [id number] 21:16:00Reason for exam:->postopShould this be performed at the bedside?->YesFINAL REPORT Exam: AP hip CLINICAL INDICATION: Right hip arthroplasty IMPRESSION: Compared with intraoperative image performed earlier today at 1400 hours. The patient is status post a right hip arthroplasty. The alignment is near anatomic. No definite evidence of a periprosthetic fracture. As before, postoperative changes are noted in the adjacent soft tissues. Signed: Jarad Garcia Verified Date/Time: 10/29/2017 21:16:21 Reading Location: [address] Transitional Re ading Room POCT-GLUCOSE [id number] 20:20:00 Test Item Value Reference Range Interpretation Comments POC-GLUCOSE METER 76 mg/dL 70-110 TESTED AT [facility] [address] ([facility]) (test code = [facility] [facility] 1538) [place] [address] POCT-GLUCOSE [id number] 15:13:00 Test Item Value Reference Range Interpretation Comments POC-GLUCOSE METER 150 mg/dL 70-110 H TESTED AT [facility] [address] ([facility]) (test code [employer] [facility] = 1538) [place] [address] RAD, HIP, OPERATIVE, [id number] 14:41:00Reason for exam:->RequiredFINAL REPORT RIGHT HIP ONE VIEW HISTORY: Right hip pain, right hip arthroplasty COMPARISON: None FINDINGS: Single intraoperative image of the right hip/low pelvis shows in progress changes of right hip total arthroplasty. A reamer is present in the proximal right femur. The acetabular region is obscured by overlying hardware. Signed: Ceci Aldrich Verified Date/Time: 10/29/2017 14:41:51 Reading Location: [facility] Radiology Reading Room POCT- GLUCOSE [id number] 09:53:00 Test Item Value Reference Range Interpretation Comments POC-GLUCOSE METER 104 mg/dL 70-110 TESTED AT [facility] [address] (BEAKER) (test code [facility] = 1538) [place] [address] BASIC METABOLIC [id number] 12:23:00 Test Item Value Reference Range Interpretation [...] APPLICABLE FOR DIALYSIS PATIEN TS. URINALYSIS W/ [id number] 12:21:00 Test Item Value Reference Range Interpretation [...] code = 1663) SOURCE(BEAKER) (test code = 2795) CBC W/PLT COUNT & AUTO [id number] 12:18:00 Test Item Value Reference Range Interpretation [...] L 0.00-0.20 (test code = 417) MRSA [id number] 08:33:00 Test Item Value Reference Range Interpretation Comments CULTURE (BEAKER) (test code No MRSA isolated = 1095)
== END 2021-01-22 19:03 | disposition hospice, home (50) ==
LOC: ER 18:01 → ERHOLD 20:14 → 2ND 23:03
PROVIDERS: ADMIT Family Medicine; ATTEND Family Medicine
DX: G89.3 Neoplasm related pain (acute) (chronic) (principal); C49.9 Malignant neoplasm of connective and soft tissue, unspecified; I10 Essential (primary) hypertension; E87.6 Hypokalemia; E83.42 Hypomagnesemia; Z86.718 Personal history of other venous thrombosis and embolism; Z79.01 Long term (current) use of anticoagulants; K59.00 Constipation, unspecified; Z20.822 Contact with and (suspected) exposure to COVID-19; Z66 Do not resuscitate; Z85.3 Personal history of malignant neoplasm of breast; Z96.641 Presence of right artificial hip joint
CPT/HCPCS: 93005 ×2; 85025 ×2; 80048; 36415; 83735 ×2; 84100; 85610; 80076; 84484 ×2; 80053; 83880; 71045; 94760; 99285; U0003; J2550 ×6; J1200; J1170 ×7; G0378 ×2

== ENCOUNTER 2021-01-25 17:39 | Emergency (ER) | payer OTHER ==
[2021-01-25] MEDS ORDERED: PROMETHAZINE INJ 25 MG/ML AMP ONE ×2 (18:27→21:26)
[2021-01-25] MEDS ORDERED: HYDROMORPHONE HCL 1 MG/ML INJ ONE ×2 (18:28→18:53)
[2021-01-25 18:44] LABS: Basophils % 0.4 % (0-1.3); Hematocrit 28.7 % (36.0-45.0); Lymphocytes % 14.4 % (15.3-44.8); MPV 7.6 fL (7.6-11.3); RBC Red Blood Cell Count 3.52 M/uL (3.86-4.86)
[2021-01-25 18:47] LABS: Protime INR 1.15
--- NOTE | 2021-01-25 18:52 | RAD REPORT ---
EXAM DESCRIPTION: RAD - Chest Single View - 01/25/2021 6:10 pm CLINICAL HISTORY: CHEST PAIN COMPARISON: January 21 TECHNIQUE: AP portable chest image was obtained 01/25/2021 6:10 pm . FINDINGS: Lungs are clear. Interstitial pattern matches comparison. Left-sided PICC line remains in place. Heart and vasculature are normal. No measurable pleural effusion and no pneumothorax. No acute bony abnormality seen. No acute aortic findings suspected. IMPRESSION: No acute cardiopulmonary process. No significant change from comparison study.
[2021-01-25 19:05] LABS: ALT/SGPT 16 U/L (12-78); AST/SGOT 9 U/L (15-37); Albumin 3.4 g/dL (3.4-5.0); Alkaline Phosphatase 80 U/L (45-117); BUN Blood Urea Nitrogen 7 mg/dL (7-18); Bicarbonate 25 mmol/L (21-32); Bilirubin Direct 0.1 mg/dL (0-0.2); Bilirubin Total 0.4 mg/dL (0.2-1.0); Glucose Level 84 mg/dL (74-106); Magnesium 1.8 mg/dL (1.8-2.4); NT PRO-BNP 307 pg/mL (<125); Protein, Total 7.7 g/dL (6.4-8.2); Sodium Level 142 mmol/L (136-145); Troponin (Emerg Dept Use Only) < 0.02 ng/mL (0.0-0.045)
[2021-01-25] MEDS ORDERED: HYDROMORPHONE HCL 2 MG/ML inj ONE ×2 (19:49→21:26)
[2021-01-25] MEDS ORDERED: POTASSIUM 25 MEQ EFFERV TAB ONE (20:13)
--- NOTE | 2021-01-25 20:56 | ER ---
Nurse's Notes [facility] Name: Sade Galdamez Age: 60 yrs Sex: Female : 1960 Arrival Date: 01/25/2021 Time: 17:40 Bed 6 Private MD: Gisele Brewer H Diagnosis: Chest pain, unspecified;Essential (primary) hypertension;Pain in left leg-Known Large Sarcoma;Hypokalemia Presentation: 01/25 17:48 Chief complaint: Patient states: Chest pain that began last night. HX of breast CA. ss Coronavirus screen: Client denies travel out of the [place] in the last 14 days. Ebola Screen: Patient denies exposure to infectious person. Patient denies travel to an Ebola-affected area in the 21 days before illness onset. Initial Sepsis Screen: Does the patient meet any 2 criteria? No. Patient's initial sepsis screen is negative. Does the patient have a suspected source of infection? No. Patient's initial sepsis screen is negative. Risk Assessment: Do you want to hurt yourself or someone else? Patient reports no desire to harm self or others. Note Pt reports that last time this happened her K+ was running low. Onset of symptoms was January 24, 2021. 17:48 Method Of Arrival: Wheelchair ss 17:48 Acuity: ABDIRIZAK 3 ss Historical: - Allergies: 17:48 Iodine; ss - PMHx: 17:48 breast cancer; chemotherapy; Hypertension; Tumor to groin area; ss - PSHx: 17:48 ovi mastectomy; hysterectomy; ss - Immunization history:: Client reports receiving the 2nd dose of the Covid vaccine. - Social history:: Smoking status: Patient denies any tobacco usage or history of. - Family history:: not pertinent. Screenin:02 Abuse screen: Denies threats or abuse. Nutritional screening: No deficits noted. jd3 Tuberculosis screening: No symptoms or risk factors identified. Fall Risk Ambulatory Aid- None/Bed Rest/Nurse Assist (0 pts). Gait- Normal/Bed Rest/Wheelchair (0 pts) Mental Status- Oriented to own ability (0 pts). Total Schaeffer Fall Scale indicates No Risk (0-24 pts). Assessment: 17:45 General: Appears uncomfortable, Behavior is calm, cooperative, appropriate for age. jd3 Pain: Complains of pain in chest Pain radiates to left lateral anterior chest Pain began suddenly. Neuro: Level of Consciousness is awake, alert, obeys commands, Oriented to person, place, time, situation. Cardiovascular: Reports chest pain, Capillary refill < 3 seconds Patient's skin is warm and dry. Rhythm is sinus tachycardia. Respiratory: Airway is patent Respiratory effort is even, unlabored, Respiratory pattern is regular, symmetrical, Denies cough, shortness of breath. GI: Abdomen is round Abd is soft and non tender X 4 quads. Reports nausea, vomiting. : No signs and/or symptoms were reported regarding the genitourinary system. EENT: No signs and/or symptoms were reported regarding the EENT system. Derm: Skin is intact, Skin is dry, Skin is normal, Skin temperature is warm. Musculoskeletal: Circulation, motion, and sensation intact. Range of motion: intact in all extremities, Swelling present in left leg. 18:45 Reassessment: Patient appears in no apparent distress at this time. No changes from jd3 previously documented assessment. Patient and/or family updated on plan of care and expected duration. Pain level reassessed. Patient is alert, oriented x 3, equal unlabored respirations, skin warm/dry/pink. Vital Signs: 17:48 BP 131 / 76; Pulse 104; Resp 17; Temp 97.5(TE); Pulse Ox 100% on R/A; Weight 108.86 kg; ss Height 5 ft. 5 in. (165.10 cm); Pain 10/10; 18:59 BP 117 / 69; Pulse 96; Resp 19 S; Pulse Ox 100% on R/A; jd3 17:48 Body Mass Index 39.94 (108.86 kg, 165.10 cm) ED Course: 17:40 Patient arrived in ED. am2 17:40 Gisele Brewer DO is Private Physician. am2 17:48 Arm band placed on right wrist. ss 17:49 Triage completed. ss 17:57 Slava Abebe, SILAS is Primary Nurse. jd3 17:59 Scott Cortez MD is Attending Physician. ma2 18:10 XRAY Chest (1 view) In Process Unspecified. EDMS 19:02 Patient has correct armband on for positive identification. Bed in low position. Call jd3 light in reach. Side rails up X2. monitoring and evaluation advisor on. Pulse ox on. NIBP on. 19:02 Accessed PICC line. double lumen PICC to the left upper arm. Patient maintains SpO2 jd3 saturation greater than 95% on room air. 19:11 Attending Physician role handed off by Scott Cortez MD ruddy 19:11 Jean Carlos Pinzon MD is Attending Physician. ruddy 20:23 D-Dimer Sent. df1 20:23 Troponin (emerg Dept Use Only): 815pm Sent. df1 20:44 D-Dimer Sent. kc4 20:44 Troponin (emerg Dept Use Only): 815pm Sent. kc4 20:53 Alejandro Mayo DO is Hospitalizing Provider. ruddy 20:58 Gisele Brewer DO is Referral Physician. ruddy 20:58 Rafaela James MD is Referral Physician. ruddy 20:58 Antony Roca MD is Referral Physician. ruddy 21:49 No provider procedures requiring assistance completed. used pt pic line, flushed both bs2 lines and placed new caps on both lines. Administered Medications: 18:35 Drug: Dilaudid (HYDROmorphone) 1 mg Route: IVP; Site: left antecubital; jd3 18:59 Follow up: Response: No adverse reaction; RASS: Alert and Calm (0) jd3 18:35 Drug: Phenergan (promethazine) 25 mg Route: IVP; Site: left antecubital; jd3 18:59 Follow up: Response: No adverse reaction jd3 18:40 Not Given (Other Intervention Used): Zofran (Ondansetron) 4 mg IVP once; over 2 minutes jd3 18:59 Drug: Dilaudid (HYDROmorphone) 1 mg Route: IVP; Site: left antecubital; jd3 21:48 Follow up: Response: No adverse reaction bs2 20:00 Drug: Dilaudid (HYDROmorphone) 1 mg Route: IVP; Site: left antecubital; bs2 21:47 Follow up: Response: No adverse reaction bs2 20:23 Drug: Potassium Effervescent Tablet 50 mEq Route: PO; df1 21:48 Follow up: Response: No adverse reaction bs2 21:47 Drug: Phenergan (promethazine) 12.5 mg Route: IVP; Site: left upper arm; bs2 21:47 Follow up: Response: No adverse reaction bs2 21:47 Drug: Dilaudid (HYDROmorphone) 1 mg Route: IVP; Site: left upper arm; bs2 21:47 Follow up: Response: No adverse reaction bs2 Outcome: 20:55 Decision to Hospitalize by Provider. ruddy 20:58 Discharge ordered by . ruddy 21:48 Discharged to home ambulatory, with family. bs2 21:48 Condition: stable 21:48 Discharge instructions given to patient, Instructed on discharge instructions, follow up and referral plans. Demonstrated understanding of instructions, follow-up care. 21:49 Patient left the ED. bs2 Signatures: Dispatcher [employer] EDMS Jean Carlos Pinzon MD MD cha Smirch, Shelby, RN RN Nicole Nazario amSlava Sanford RN RN jScott James MD MD ma2 Smith, Bridget, RN RN bs2 Trina Garcia 4 Talita Barnard df1 Corrections: (The following items were deleted from the chart) 19:00 18:59 BP 117 / 69; Pulse 96bpm; Resp 100bpm; Spontaneous; Pulse Ox 100% RA; jd3 jd3
--- NOTE | 2021-01-25 20:56 | EDPHYS ---
Physician Documentation [facility] Name: Sade Galdamez Age: 60 yrs Sex: Female : 1960 Arrival Date: 01/25/2021 Time: 17:40 Bed 6 Private MD: Gisele Brewer H ED Physician Jean Carlos Pinzon HPI: 01/25 18:05 This 60 yrs old Black Female presents to ER via Wheelchair with complaints of Chest ma2 Pain. 18:05 The patient or guardian reports chest pain that is located primarily in the substernal ma2 area. Onset: suddenly, 1 day(s) ago. Associated signs and symptoms: Pertinent negatives: cough, dizziness, lower extremity pain, lightheadedness, nausea, shortness of breath, syncope. Severity of pain: At its worst the pain was moderate in the emergency department the pain is unchanged. The patient has experienced similar episodes in the past. Historical: - Allergies: 17:48 Iodine; ss - PMHx: 17:48 breast cancer; chemotherapy; Hypertension; Tumor to groin area; ss - PSHx: 17:48 ovi mastectomy; hysterectomy; ss - Immunization history:: Client reports receiving the 2nd dose of the Covid vaccine. - Social history:: Smoking status: Patient denies any tobacco usage or history of. - Family history:: not pertinent. ROS: 18:05 Constitutional: Negative for fever, chills, and weight loss. ma2 18:05 All other systems are negative. Exam: 18:05 Constitutional: This is a well developed, well nourished patient who is awake, alert, ma2 and in no acute distress. Head/Face: Normocephalic, atraumatic. Eyes: Pupils equal round and reactive to light, extra-ocular motions intact. Lids and lashes normal. Conjunctiva and sclera are non-icteric and not injected. Cornea within normal limits. Periorbital areas with no swelling, redness, or edema. ENT: Nares patent. No nasal discharge, no septal abnormalities noted. Tympanic membranes are normal and external auditory canals are clear. Oropharynx with no redness, swelling, or masses, exudates, or evidence of obstruction, uvula midline. Mucous membranes moist. Neck: Trachea midline, no thyromegaly or masses palpated, and no cervical lymphadenopathy. Supple, full range of motion without nuchal rigidity, or vertebral point tenderness. No Meningismus. Chest/axilla: Normal chest wall appearance and motion. Nontender with no deformity. No lesions are appreciated. Cardiovascular: Regular rate and rhythm with a normal S1 and S2. No gallops, murmurs, or rubs. Normal PMI, no JVD. No pulse deficits. Respiratory: Lungs have equal breath sounds bilaterally, clear to auscultation and percussion. No rales, rhonchi or wheezes noted. No increased work of breathing, no retractions or nasal flaring. Abdomen/GI: Soft, non-tender, with normal bowel sounds. No distension or tympany. No guarding or rebound. No evidence of tenderness throughout. Skin: Warm, dry with normal turgor. Normal color with no rashes, no lesions, and no evidence of cellulitis. MS/ Extremity: Pulses equal, no cyanosis. Neurovascular intact. Full, normal range of motion. Neuro: Awake and alert, GCS 15, oriented to person, place, time, and situation. Cranial nerves II-XII grossly intact. Motor strength 5/5 in all extremities. Sensory grossly intact. Cerebellar exam normal. Normal gait. Psych: Awake, alert, with orientation to person, place and time. Behavior, mood, and affect are within normal limits. 20:35 ECG was reviewed by the Attending Physician. [facility] 20:36 ECG was reviewed by the Attending Physician. [facility] Vital Signs: 17:48 BP 131 / 76; Pulse 104; Resp 17; Temp 97.5(TE); Pulse Ox 100% on R/A; Weight 108.86 kg; ss Height 5 ft. 5 in. (165.10 cm); Pain 10/10; 18:59 BP 117 / 69; Pulse 96; Resp 19 S; Pulse Ox 100% on R/A; jd3 17:48 Body Mass Index 39.94 (108.86 kg, 165.10 cm) MDM: 17:59 Patient medically screened. ma2 20:06 Differential diagnosis: abnormal EKG, anxiety, chest wall pain, cholecystitis, ruddy costochondritis, peptic ulcer disease, pleurisy, pneumonia, pulmonary embolus, stable angina, unstable angina. HEART Score: History: Slightly Suspicious (0), ECG: Non specific repolarization disturbance / LBTB / PM (1), Age: > 45 and < 65 years (1), Risk Factors: > or = 3 Risk factors for atherosclerotic disease (2), [Hypertension] [+ Family HX] [Obesity] Troponin: < or = 1 x Normal Limit (0). The patient was not given aspirin in the Emergency Department. Not indicated due to patient's past medical history. The patient's deep vein thrombosis risk score was calculated as follows: the patients entire leg is swollen (1.0 Pts) Total Score: 1 to 2 points. This patient was found to be at moderate risk for a deep vein thrombosis by using the Well's assessment criteria. The patient's pulmonary embolism risk score was calculated as follows: the patients heart rate is greater than 100 beats per minute (1.5 Pts) Total Score: 0-2 points. This patient was found to be at low risk for a pulmonary embolism by using the Well's assessment criteria. GUILHERME Risk Score: 1 - Three or more CAD risk factors, TOTAL SCORE = 1. Data reviewed: vital signs, nurses notes, lab test result(s), EKG, radiologic studies, plain films. Data interpreted: environmental monitoring technician: rate is 96 beats/min, rhythm is regular, Pulse oximetry: on room air is 100 %. Test interpretation: by ED physician or midlevel provider: ECG, plain radiologic studies. Counseling: I had a detailed discussion with the patient and/or guardian regarding: the historical points, exam findings, and any diagnostic results supporting the discharge/admit diagnosis, lab results, radiology results. 01/25 17:58 Order name: Basic Metabolic Panel; Complete Time: 19:07 ma2 01/25 17:58 Order name: CBC with Diff; Complete Time: 18:58 ma2 01/25 17:58 Order name: LFT's; Complete Time: 19:11 ma2 01/25 17:58 Order name: Magnesium; Complete Time: 19:11 ma2 01/25 17:58 Order name: NT PRO-BNP; Complete Time: 19:11 ma2 01/25 17:58 Order name: PT-INR; Complete Time: 18:58 ma2 01/25 17:58 Order name: Troponin (emerg Dept Use Only); Complete Time: 19:11 ma2 01/25 17:58 Order name: XRAY Chest (1 view); Complete Time: 18:58 ma2 01/25 20:09 Order name: Troponin (emerg Dept Use Only): 815pm; Complete Time: 20:57 [facility] 01/25 20:09 Order name: D-Dimer; Complete Time: 20:57 [facility] 01/25 17:58 Order name: EKG; Complete Time: 17:[address] [facility] 01/25 17:58 Order name: Cardiac monitoring; Complete Time: 18:[address] [facility] 01/25 17:58 Order name: EKG - Nurse/Tech; Complete Time: 18:[address] [facility] 01/25 17:58 Order name: IV Saline Lock; Complete Time: 18:[address] [facility] 01/25 17:58 Order name: Labs collected and sent; Complete Time: 18:[address] [facility] 01/25 17:58 Order name: O2 Per Protocol; Complete Time: 18:[address] [facility] 01/25 17:58 Order name: O2 Sat Monitoring; Complete Time: 18:[address] [facility] 01/25 20:06 Order name: PO challenge: gatorade please; Complete Time: 20:23 [facility] 01/25 20:09 Order name: EKG; Complete Time: 20:10 [facility] 01/25 20:09 Order name: EKG - Nurse/Tech; Complete Time: 20:23 [facility] EC:35 Rate is 107 beats/min. Rhythm is regular. QRS [place] is Normal. DE interval is normal. ruddy QRS interval is normal. QT interval is normal. No Q waves. T waves are Normal. No ST changes noted. Clinical impression: Sinus tachycardia and No evidence of ischemia. Interpreted by me. Reviewed by me. 20:36 Rate is 77 beats/min. Rhythm is regular. QRS [place] is Normal. DE interval is normal. QRS ruddy interval is normal. QT interval is normal. No Q waves. T waves are Normal. No ST changes noted. Clinical impression: No evidence of ischemia. Interpreted by me. Reviewed by me. Administered Medications: 18:35 Drug: Dilaudid (HYDROmorphone) 1 mg Route: IVP; Site: left antecubital; jd3 18:59 Follow up: Response: No adverse reaction; RASS: Alert and Calm (0) jd3 18:35 Drug: Phenergan (promethazine) 25 mg Route: IVP; Site: left antecubital; jd3 18:59 Follow up: Response: No adverse reaction jd3 18:40 Not Given (Other Intervention Used): Zofran (Ondansetron) 4 mg IVP once; over 2 minutes jd3 18:59 Drug: Dilaudid (HYDROmorphone) 1 mg Route: IVP; Site: left antecubital; jd3 21:48 Follow up: Response: No adverse reaction bs2 20:00 Drug: Dilaudid (HYDROmorphone) 1 mg Route: IVP; Site: left antecubital; bs2 21:47 Follow up: Response: No adverse reaction bs2 20:23 Drug: Potassium Effervescent Tablet 50 mEq Route: PO; df1 21:48 Follow up: Response: No adverse reaction bs2 21:47 Drug: Phenergan (promethazine) 12.5 mg Route: IVP; Site: left upper arm; bs2 21:47 Follow up: Response: No adverse reaction bs2 21:47 Drug: Dilaudid (HYDROmorphone) 1 mg Route: IVP; Site: left upper arm; bs2 21:47 Follow up: Response: No adverse reaction bs2 Disposition Summary: 01/25/21 20:58 Discharge Ordered Location: Home(01/25/21 20:58) ruddy Problem: new(01/25/21 20:58) ruddy Symptoms: have improved(01/25/21 20:58) ruddy Condition: Stable(01/25/21 20:58) ruddy Diagnosis - Chest pain, unspecified(01/25/21 20:58) ruddy - Essential (primary) hypertension ruddy - 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) ruddy - Hypokalemia ruddy Followup: ruddy - With: - When: 2 - 3 days - Reason: Recheck today's complaints, Continuance of care, Re-evaluation by your physician Followup: ruddy - With: - When: 2 - 3 days - Reason: Recheck today's complaints, Continuance of care, Re-evaluation by your physician Followup: ruddy - With: - When: 2 - 3 days - Reason: Recheck today's complaints, Continuance of care, Re-evaluation by your physician Discharge Instructions: - Discharge Summary Sheet ruddy - Nonspecific Chest Pain, Adult ruddy - Potassium Content of Foods ruddy - Hypertension, Adult ruddy - Hypertension, Adult, [id number] ruddy - Hypokalemia ruddy - Managing Your Hypertension ruddy Forms: - Medication Reconciliation Form ruddy - Thank You Letter ruddy - Antibiotic Education ruddy - Prescription Opioid Use ruddy Signatures: Dispatcher [employer] EDMS Jean Carlos Pinzon MD MD cha Smirch, Shelby, RN RN ss Meir Miller, LINE WELDER-C LINE WELDER-Cla1 Slava Abebe RN RN jd3 Scott Cortez MD MD ma2 Vesna Dempsey RN RN bs2 Talita Barnard df1 Corrections: (The following items were deleted from the chart) 18:11 18:07 Chest For PE Angio+CT.RAD.BRZ ordered. EDMS EDMS 20:58 20:55 Observation ruddy ruddy 20:58 20:55 Prezas, Alejandro ruddy ruddy 20:58 20:55 Telemetry/MedSurg (observation) ruddy ruddy 20:58 20:55 Stable ruddy ruddy 20:58 20:55 new ruddy ruddy 20:58 20:55 have improved ruddy ruddy 20:58 20:55 Standard ruddy ruddy 20:58 20:55 ruddy ruddy 20:58 20:55 Chest pain, unspecified ruddy ruddy 20:58 20:55 Pain in left leg - sarcoma, large ruddy ruddy 20:59 20:57 CORONAVIRUS ordered. EDMS EDMS
[2021-01-25 22:43] VITALS: BP 131/76; TEMP 97.5; O2SAT 100
--- NOTE | 2021-01-26 20:37 | EKG ---
Test Date: 2021-01-25 Test Time: 20:18:35 Jet Mechanic: LETY MEASUREMENT RESULTS: Intervals: Rate: 77 VT: 142 QRSD: 96 QT: 400 QTc: 452 [place]: P: 39 VT: 142 QRS: 3 T: 122 INTERPRETIVE STATEMENTS: Normal sinus rhythm T wave abnormality, consider anterolateral ischemia Abnormal ECG Compared to ECG 01/25/2021 18:02:55 T-wave abnormality now present Possible ischemia now present Sinus tachycardia no longer present ST (T wave) deviation no longer present Electronically Signed On 01-26-21 20:35:05 [employer]ING [employer] WORKER by Antony Roca
--- OUTSIDE RECORDS SUMMARY | 2021-01-27 22:02 | XMS REPORT | Continuity of Care Document ---
:[address] [facility] t Address [address] [place] [address] Care Team Providers Name Role Phone KALINA [...] Attending Clinician Isabelle Ramos MD Attending Clinician [phone] Lazaro LYNN Attending Clinician ANA PAULA TAVARES Attending Clinician Unavailable STEVE GARCIA Attending Clinician Unavailable Nile TEJADA Admitting Clinician Unavailable JAVI BRAY Admitting Clinician Unavailable LEONOR Admitting Clinician Unavailable BOOM CARLIN Admitting Clinician Unavailable NARGIS Admitting Clinician Unavailable STEVE GARCIA Admitting Clinician Unavailable Payers Payer Name Policy Type Policy Number Effective Date Expiration Date S elijah MEDICARE A B [id number] AETNA OPEN ACCESS [id number] 2017 O NAP 00:00:00 [facility] MEDICARE [id number] 2020 COMPLETE CHOICE 00:00:00 PLAN 2 [facility] [id number] [facility] MEDICARE MGD 00:00:00 - [facility] [id number] 2020-Present MEDICARE PART A [id number] 2020 AND B 00:00:00 Problems Condition Condition Condition Status Onset Resolution Last Treating Co mments Source Name Details Category Date Date Treatment Clinician Date Venous Venous Disease Active [facility] obstruct[facility] obstructio 6 [facility] - n n 00:00: Medical 00 [place] Mass of Mass of Disease Active [facility] iliopsoas iliopsoas 6 [facility] - muscle muscle 00:00: Medical group group 00 [place] Pyoderma Pyoderma Disease Active Overview: [facility] gangrenosu gangrenosu 11-10 Post [facility] kes - m m 00:00: surgical Medical 00 [place] Hip 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[facility] osteoarthr osteoarthr 10-29 [facility] kes - itis itis 00:00: Medical 00 [place] Diabetes Diabetes Disease Active [facility] t mellitus mellitus 10-29 [facility] - 00:00: Medical 00 [place] Hypertensi Hypertensi Disease Active [facility] on on 10-29 Lu - 00:00: Medical 00 [place] Unilateral Unilateral Disease Active [facility] primary primary 10-07 [facility] - osteoarthr osteoarthr 00:00: Me dical itis, itis, 00 [place] right hip right hip Surgical Surgical Disease [...] Stop Date Source Natural father Lung cancer [facility] Natural mother Diabetes [facility] Social History Social Habit Start Date Stop Date Quantity Comments Source Sex Assigned At [facility] Tobacco use and 2017-11-18 2017-11-[address] [facility] [facility] - exposure 00:00:00 00:00:00 Medical Center Alcohol intake 2017-11-18 2017-11-18 Current drinker HOMAR rodriguez [facility] - 00:00:00 00:00:00 of alcohol [facility] Center (finding) Alcohol Comment 2017-10-06 2017-10-06 SOCIALLY HOMAR Oliva kes - 00:00:00 00:00:00 Medical Center Smoking Status Start Date Stop Date Source Never smoker [facility] Medications Ordered Filled Start Stop Current [...] kg Systolic blood 2020-09-06 16:21:00 161 mm[Hg] [facility] Diastolic blood 2020-09-06 16:21:00 75 mm[Hg] [facility] Heart rate 2020-09-06 16:21:00 87 /min [facility] Body temperature 2020-09-06 16:21:00 35.78 Lovely [facility] Respiratory rate 2020-09-06 16:21:00 18 /min [facility] Oxygen saturation in 2020-09-06 16:21:00 97 /min [facility] Arterial blood by Medical Ce nter Pulse oximetry Body weight 2020-09-06 06:00:00 141.658 kg [facility] BMI 2020-09-06 06:00:00 50.41 kg/m2 [facility] Body height 2020-08-20 18:00:00 167.6 cm [facility] Procedures Procedure Date / Time Performed Performing Clinician [facility] e CT CHEST WITH IV CONTRAST 2020-09-05 12:35:00 Vandana Tejada [facility] COMPREHENSIVE METABOLIC 2020-09-05 05:16:00 Vandana Tejada [facility] 2D ECHO W/ DOPPLER 2020-09-05 01:05:41 Vandana Tejada [facility] (CW/PW/COLOR) [facility] SARS-COV2/RT-PCR ([facility] & 2020-09-03 21:48:00 Tricia Ramos [facility] - REF LABS) [facility] CBC W/PLT COUNT & AUTO 2020-09-03 06:17:00 Vandana Tejada [facility] I [facility] CBC (HEMOGRAM ONLY) 2020-09-02 04:36:00 Hari Carlin [facility] PROTHROMBIN TIME/INR 2020-09-02 04:36:00 Shabana Perea [facility] CBC (HEMOGRAM ONLY) 2020-09-01 03:48:00 Hari Carlin [facility] PROTHROMBIN TIME/INR 2020-09-01 03:48:00 [facility] US CORE BIOPSY 2020-08-31 18:48:00 Vandana Tejada [facility] TISSUE EXAM 2020-08-31 18:37:00 Vandana Tejada [facility] VITAMIN B12 AND FOLATE 2020-08-31 04:45:00 Vandana Tejada I [facility] CBC (HEMOGRAM ONLY) 2020-08-31 04:45:00 Raegan [facility] PROTHROMBIN TIME/INR 2020-08-31 04:45:00 [facility] CT ABDOMEN/PELVIS WITH IV 2020-08-30 10:28:00 Gadicherdc, [facility] CONTRAST [facility] CTA AAA AND RUNOFF 2020-08-30 10:28:00 [facility] 2020-08-30 05:17:00 [facility] W/[facility] CBC (HEMOGRAM ONLY) 2020-08-30 05:17:00 Raegan [facility] PROTHROMBIN TIME/INR 2020-08-30 05:17:00 [facility] HC ARTERIAL DOPPLER LEG 2020-08-29 16:05:00 TraceyerHumberto keaneal I [facility] UNI [facility] CBC (HEMOGRAM ONLY) 2020-08-29 12:50:00 Gadicherdc, [facility] HEPARIN ASSAY - LOW 2020-08-29 12:50:00 [facility] - MOLECULAR WEIGHT [facility] CBC (HEMOGRAM ONLY) 2020-08-29 05:03:00 Raegan [facility] PROTHROMBIN TIME/INR 2020-08-29 05:03:00 [facility] BUN AND CREATIN[facility] 2020-08-28 16:37:00 Gadicherla, [facility] - W/RATIO [facility] VENOUS DOPPLER LEG, LEFT 2020-08-28 12:43:00 Traceyerlakhwinder, Tricia C [facility] CBC (HEMOGRAM ONLY) 2020-08-28 04:42:00 Raegan [facility] PROTHROMBIN TIME/INR 2020-08-28 04:42:00 [facility] SARS-COV2/RT-PCR ([facility] & 2020-08-27 18:10:00 Gadicherlakhwinder Tricia Reagan [facility] - REF LABS) [facility] PROTHROMBIN TIME/INR 2020-08-27 12:22:00 [facility] CBC (HEMOGRAM ONLY) 2020-08-27 04:06:00 [facility] PROT[facility]/INR 2020-08-26 11:47:[address] [facility] CBC (HEMOGRAM ONLY) 2020-08-26 11:47:00 [facility] CBC (HEMOGRAM ONLY) 2020-08-26 06:00:00 [facility] PROTHROMBIN TIME/INR 2020-08-25 18:11:00 Stephanie [facility] CBC W/PLT COUNT & AUTO 2020-08-25 14:27:00 [facility] CBC (HEMOGRAM ONLY) 2020-08-25 06:58:00 Raegan [facility] APTT 2020-08-25 06:49:00 [facility] APTT 2020-08-24 22:45:00 [facility] 2020-08-24 12:42:00 [facility] BASIC METABOLIC PANEL (7) 2020-08-24 05:41:00 BorisTom yoon [facility] CBC (HEMOGRAM ONLY) 2020-08-24 05:41:00 Hari Carlin [facility] APTT 2020-08-24 05:41:00 Gadicherlakhwinder [facility] APTT 2020-08-23 21:14:00 [facility] CBC (HEMOGRAM ONLY) 2020-08-23 14:11:00 Gadicherdc, [facility] APTT 2020-08-23 14:11:00 [facility]EN[facility] DOPPLER LEG, LEFT 2020-08-23 12:46:00 [facility] BASIC METABOLIC PANEL (7) 2020-08-23 04:08:00 BorisTom yoon [facility] CBC (HEMOGRAM ONLY) 2020-08-23 04:08:00 Hari Carlin [facility] BASIC METABOLIC PANEL (7) 2020-08-22 05:37:00 BorisTom yoon [facility] CBC (HEMOGRAM ONLY) 2020-08-22 05:37:00 Hari Carlin [facility] US EXTREMITY NON-VASCULAR 2020-08-21 14:30:00 Hari Carlin [facility] CBC (HEMOGRAM ONLY) 2020-08-21 05:50:00 Hari Carlin [facility] COMPREHENSIVE METABOLIC 2020-08-21 05:50:00 Hari Carlin [facility] PROTHROMBIN TIME/INR 2020-08-21 05:50:00 Hari Carlin [facility] XR HIP 2 VIEWS LEFT 2020-08-20 18:25:00 Hari Carlin [facility] XR LUMBAR SPINE 2 OR 3 2020-08-20 18:20:00 Hari Carlin [facility] - VIEWS [facility] XR KNEE 3 VIEWS LEFT 2020-08-20 18:14:00 Hari Carlin [facility] CBC W/PLT COUNT & AUTO 2020-08-20 15:02:00 Hari Carlin [facility] DIFFERENTIAL [facility] COMPREHENSIVE METABOLIC 2020-08-20 15:02:00 Hari Carlin [facility] - PANEL [facility] MAGNESIUM 2020-08-20 15:02:00 Hari Carlin [facility] PHOSPHORUS 2020-08-20 15:02:00 Hari Carlin [facility] LACTATE DEHYDROGENASE 2020-08-20 15:02:00 Hari Carlin [facility] (LDH) [facility] URIC ACID 2020-08-20 15:02:00 Hari Carlin [facility] Plan of Care Planned Activity [...] Medica l Center colon (procedure) [code = 988263376] Future Scheduled 2018-11-[address] [facility] - Test 00:00:00 malignant neoplasm of Medica [facility] Center colon (procedure) [code = 666284364] Future Scheduled 2018-11-[address] [facility] - Test 00:00:00 malignant neoplasm of [facility] Center colon (procedure) [code = 242584845] Future Scheduled 2017-10-[address] [facility] - Test 00:00:00 measurement Medical Center (procedure) [code = 49564406] Future Scheduled 2017-10-[address] [facility] - Test 00:00:00 measurement Medical Center (procedure) [code = 43801854] Future Scheduled 2017-10-[address] [facility] - Test 00:00:00 measurement Medical Center (procedure) [code = 66909940] Future Scheduled 2010 SHINGLES VACCINES (1 [facility] [...] Test 00:00:00 (procedure) [code = Medical Center 81232978] Future Scheduled [address] - Test 00:00:00 (procedure) [code = Medical Center 79124842] Future Scheduled [address] - Test 00:00:00 (procedure) [code = Medical Center 42872769] Future Scheduled [address] [facility] - Test 00:00:00 malignant neoplasm of Medica l Center cervix (procedure) [code = 920832688] Future Scheduled [address] [facility] - Test 00:00:00 [facility] [code = 052217119] Future Scheduled [address] [facility] - Test 00:00:00 [facility] cervix (procedure) [code = 234078698] Future Scheduled 1979 DTAP/TDAP/TD VACCINES CH I [...] 00:00:00 examination Medical Center (regime/therapy) [code = 536342262] Future Scheduled 1970 Urine screening [facility] - Test 00:00:00 protein (procedure) Medical Center [code = 522564297] Future Scheduled 1970 DIABETIC EYE EXAM [facility] - Test 00:00:00 [code = DIABETIC EYE Medical Center EXAM] Future Scheduled [address] - Test 00:00:00 examination Medical Center (regime/therapy) [code = 683369022] Future Scheduled 1970 Urine screening [facility] - Test 00:00:00 protein (procedure) Medical Center [code = 909911838] Future Scheduled [address] DIABETIC EYE EXAM [facility] - Test 00:00:00 [code = DIABETIC EYE Medical Center EXAM] Future Scheduled [address] - Test 00:00:00 examination Medical Center (regime/therapy) [code = 804404689] Future Scheduled 1970 Urine screening [facility] - Test 00:00:00 protein (procedure) Medical Center [code = 454077914] Future Scheduled [address] [...] es - Test 00:00:00 [facility] breast (procedure) [code = 486706962] Future Scheduled [address] [facility] - Test 00:00:00 [facility] breast (procedure) [code = 700646169] Future Scheduled [address] [facility] - Test 00:00:00 malignant neoplasm of Medica l Center breast (procedure) [code = 331250763] Encounters Start End Encounter Admission Attending Care Care Encounter Source Date/Time Date/Time Type Type Clinicians Facility Department ID 2020-12-24 Inpatient ER LOIDA TEJADA Inter Rad [id number] [facility] 00:09:17 VANDANA 2020-11-21 Outpatient SYSTEM, MDA MDA [id number] 11:08:21 PROVIDER Holland o lashonda 2020-11-02 Inpatient EL GARCIA, MDA MDA [id number] 23:20:41 GAURAV And erso R n 2020-11-02 Inpatient EL GARCIA, MDA MDA [id number] 23:20:37 GAURAV And erso R n 2020-10-28 [facility] [id number] [facility] 00:00:00 Encounter [facility] 2020-10-17 Outpatient SYSTEM, MDA MDA [id number] 12:21:12 PROVIDER Holland o lashonda 2020-10-28 2020-11-03 Inpatient UR GARCIA, MDA [facility] [id number] 08:47:00 13:55:00 GAURAV Ferreira derso R n 2020-11-03 2020-11-03 Inpatient EL MAYE, MDA MDA [id number] 08:41:05 09:10:15 BIJU Carsoners o lashonda 2020-11-02 2020-11-02 Inpatient EL GARCIA, MDA MDA [id number] 22:10:35 22:18:01 GAURAV An derso R n 2020-11-02 2020-11-02 Inpatient EL MAYE, MDA MDA [id number] 17:03:33 19:31:59 BIJU Carsoners o lashonda 2020-11-02 2020-11-02 Inpatient EL GARCIA, MDA MDA [id number] 08:16:22 08:26:03 GAURAV An derso R n 2020-10-31 2020-10-31 Inpatient EL STEFANO, MDA MDA [id number] 15:19:32 21:47:10 BAL Carsoners o lashonda 2020-10-30 2020-10-30 Inpatient EL GARCIA, MDA MDA [id number] MD 04:31:13 04:49:40 CLAYBECKISTARRJEAN Hanna elaine R n 2020-10-29 2020-10-29 Inpatient EL STEFANO, MDA MDA [id number] MD 18:24:24 19:40:21 BAL gallego 2020-10-29 2020-10-29 Inpatient EL SCOTT, MDA MDA [id number] MD 18:24:28 19:36:56 SUE gallego 2020-10-29 2020-10-29 Inpatient EL SCOTT, MDA MDA [id number] MD 10:00:26 10:24:36 SUE gallego 2020-10-28 2020-10-28 Inpatient EL SCOTT, MDA MDA [id number] MD 22:30:59 22:52:26 SUE gallego 2020-10-28 2020-10-28 Emergency EL KATARINA, MDA MDA [id number] MD 10:57:00 11:46:41 BRENDAN gallego 2020-10-14 2020-10-23 Inpatient ER SCOTT, MDA [facility] [id number] MD 16:40:00 16:38:00 SUE gallego 2020-10-21 2020-10-21 Inpatient [facility], MDA MDA [id number] MD 18:46:01 19:27:32 BOB gallego 2020-10-21 2020-10-21 Inpatient [facility], MDA MDA [id number] MD 14:16:27 14:16:55 BOB gallego 2020-10-20 2020-10-20 Inpatient [facility], MDA MDA [id number] MD 20:10:36 20:13:24 BOB gallego 2020-10-17 2020-10-17 Inpatient MAYE, MDA MDA [id number] MD 15:00:32 15:42:49 BIJU gallego 2020-10-16 2020-10-16 Inpatient [facility], MDA MDA [id number] MD 09:18:38 09:49:47 BOB gallego 2020-10-15 2020-10-15 Inpatient [facility], MDA MDA [id number] MD 11:01:50 11:06:18 BOB gallego 2020-10-14 2020-10-14 Emergency EL JUAN GALVEZ [facility] [id number] 19:53:40 20:54:56 ALEXYS dupont n 2020-10-14 2020-10-14 Emergency EL STEVEN MARTINEZ MDA [facility] [id number] 17:59:26 17:59:31 Holland gallego 2020-08-20 2020-09-06 Hospital ER Vandana Tejada [facility] [id number] 13:34:00 17:17:00 Encounter Hari Carlin [email or web address] Bryant Willis 2020-08-20 2020-08-20 Travel [facility] [id number] [facility] 00:[facility] 00:00[facility]00 [facility] Results Test Description Test Time Test Comments Results Result Comments Source Tissue Exam 2020-09-14 10:56:00 Test Item Value Reference Range Interpretation Comme nts Case Report (test code = 104) Surgical Pathology Report Case: [id number] Authorizing Provider: Vandana Tejada MD Collected: 08/31/2020 06:37 PM Ordering Location: [address] Received: 09/01/2020 08:13 AM Service Pathologist: Thien Radford MD Specimen: Groin, Left, left iliopsoas mass biopsy ADDENDUM (test code = 3381) s5pmhYHsZUJquYX6LaFvFKRvd2ydt4GenZUaySW gSHowsDLqgsYcsu12yDF5uP44YC6tDUCfPvP6OY DmtdA2Yfy2SOBnWOSzlCBaZ230p9jsy9xmfaIcz KY2lSlsIXJtGOTsVFhrQNPvLeLdYZ3sbS6tqKhu rU6auFXyfJGtcPEotHTvmSZyGZNlzkKsjd0sTIK axvImwM6lofUEPPNfXY9gfxT6cvT8VDK4kTHsck DexGllf5CxVjGvENilmsJ8vlWuYNFzi0BbcAu4F YMcz8AmU0YhLM0aPWqxnVGoqoDuasOeFIRtcxGs Ud0uIWussbK4bF2eTZVhRWDdNJAkt22znjbrAF4 KJFNbxU4hoOdphQViF6bwAIMywHmeBCoAVYSfUW EDOHQ4JQQushYgP3FCKIYvJIWbj5rjNxWuRBDqa eXqvW6hAAywRmlvS5ayGvntjOPhxlAnjYEerDBb WAYpnwgnlmkiRdJbsNQuLGN1qnK0PRVaUVjaMXO hdGOqYXKaAJEiYP3dkSPcbZpbRRMffCfiVMSsCZ PlrbBtRMEws17acZYqgPJjrBe6a7qzTLOsJSH5i hNaRIFkWAMtMTTgCIVmpJBaPA4rFDOjSPCwxkFq oJVzNqIGxGFwACMbknOzyu9wqcHrQAycvRNcsyS otVXnxSXkrCr3d1CoFgLidQe5wdAqLIYbVGPidy ReNUein4P7ERQfnFxkvcKveUHxBD0vXJOgJAXoN pQwHLEas9Wmzh5elZFfDOFzexGXhhBlKNqqRTN8 oNCzaqP8sDRyOI5aLXYmUCGqMFDae52sqSZpgJ0 tVYBdkz2iwaM9IKEjq1lqhjLeARamEPCusy3qVC BcaZ3lLdHadINjsYdcPR15WtyuAHMunOCvPUDgd RBrP5VkMPD9kWmwSNUsMLGsWcKeknKjVTGpBB7I GFHbFKUyh83qCUYwwkTmx31laPe2NKAil95gJKW aOBLsYHXySEMiLQSojJ9ymAU1eWpaKNKdvDxmcb 1cyUXoMGYcfhQBvpTjPEKhcZXmwQ1tarIuiZRpZ JHjEMm7QCRwTdEBlF1vKLQeWY5pF8grRHakbdqt YXJ9 DIAGNOSIS (test code = 3220) b9sbqREbDKOfu3isNBEiiKPoUzZmDwDoIzYmVd p cdWMxIHtccnRmMVxlcGljOTIwMlxhbnNpXHNwbH DaP0XiesibGUtpAU6iSS2fiRpfnJKgiSKjZBGpR pWip5lty108eLAnk0jjYYCKknfusFa3qRrkB32k h6B2IayzW44mgVGsCCefnYUhnemmvwAlHBHSWiF oJEVVQWASJHsBSW8MU59SToMLISGVQKVYSH3XK4 v6VRVtgcMZTWeGCNlJUYJBIAjaPtZYLTqUJ73cX BGavkNORR1ERHSUWlZDOpTKYHFXJFoOWsJHZC8I PZ3IXQjLIQZNZ7EXWK0WPJwVGO7SAqqtVLDqLLN MEB7EIW9fVkGML2ULMIIXUCSBJWwXHr0oTRUord 18IZN2JvDqr1T4HKX5KEXjGDQdw8srNXUmfWRmL qSfFqYeNwNaBbegnKSmSRHgSoBhd2wka609nYKa g8wrIIStJjH8gDFqYHAnvSFvS297EQOmMLfgo1n vu5VvYKRviPIxm1C1FUAYvqcenZg8dEahR60eh5 B1JnnlZ5ygJXJyDWAtC1JdRR1mZJXxJvk3LPC9R VR4TZIgTRTjW5UxLQ3qBGGwjFYvFPl9a1uplNrh CRBnHKJ3j4olUDtcjpHkNB3mth9tjTj3i3vsnwC mZFNtIFGvlUILZWCaM5OieUrdHw6vzXe5eAvvJt tiIBW6Coo2KI2qxc93goj8oZtoRVWyqgfwPhS6I NmqYKAgqoyoIPd0WMuoCEAmyZT5JQWwzEWgE0Ml ZSIgXK7igar1EPM6ILrvDDGhNvQ7UXJlbISgLML leYnhGJhzx288NCB0SnApVI2bD7Clc3B6vO3bnE XcAHYvzMTvCyGqVEHtab4owSVmQPdrr9HcZQU3h lM7hWYrhSYmRQYeZkG4BCrvYM0tma88OOHpWGX7 gl5wxUEzlQyerdNasAGxAQmfW4UkKOVew517ZQP bY4IoJBXnt3E6qdPtUmTiQEZqnJA0csW8OVYoOT 3wypwgj7jqSAtlAScqLOIbrbB2iaZ5KANoxZBnV 6SdrF3uZTXzBE2efnyiq0loBGI0KYzmDVHsZEQ0 DsOdJKChy9Xdwqc8YdObp9MzaQHnRZfoC83db08 2QAUviaItQ5lwdKSzjnalvVUvtzbbDWemmoK7BV YuGAnyxsjvEKTnARowP9syOfEsQXMrlQktLFnqy 3FyQABqHBKjXvWmtOGsEIZfAgv1SBCliLBxPYJj KiRhX6xzeourHoUVURBnz0qpX8owrCDZrGCuK9W gIPkznrCfXElyQLgbJEBpALU8RX63KQmaGFMxzt 19 CPT Code(s) (test code = 3357) b4soxDIeWPNwrCG3UiMtAZBgl5gvk2EmwELg cGF sJDicuPWpudCzfw55tDQ3kU75TH7oYAShXsH9JU PjpoC6Glz2RPXrRRIgsYMcB734o3iqu2ytasGwr IY2nBauTFAzKFWsVXlhVZZnNqTaGRhxRTMcPEm5 OjRfRLI4JHO1MDb4JNLmvs2= CLINICAL HISTORY (test code = 3356) s7ahhOSeXDRrxTS6VgRqIRXuv3qdj7Z sdHBncGF wBBtmbOYnyqRpak87gXQ8uW21TV5eGONlPxK0HK VheqS1Oth2NBZuRJAdrLEsF752k7ucq3kyypBib RV3qXyxYHXbVGYgCWzkQHIvYtZoGJVsiTDbof4f rfOrdHN0X5pmwN0ab58zrdXxWJYtDFP1BkYrzSB 3CqCceMMpEKPkZOyyVRS2 SPECIMEN SOURCE (test code = 3377) o8ebdDMhCLQmtNQ3CyXbVQSlk4rcd5Jf dHBncGF hITjdwKVnfvUnnh31yAT4nL18MF2hTBUjPjK3WR JclbZ7Dkk4XNCpVPZczZXgU294w4tdl1ggybClf PH7vCvtGCQtBTZdEYfeXRTwBjAsJMYpyWRjbk6y zb1osCcalARtKHEisEHwpW== GROSS DESCRIPTION (test code = 3366) l2okcBItMBIuqIJsHuQyVGHjEUCqu6 lcZGVmbGF kXjFeSbRsHpRfLxmznJAkRRJkMlMdo7msw239lG Mbv1nkIQKDnfmmxLz1o4xkQNFhCwQ6pEHoMDtsP 7ysyyMtyKZfSLOvQOx2rY27UJAmiO8yoXPpEKui seYeQhT3ZKziKHYuItZ6HYQuzBXbBBQuC1ssVZS aOPrcTZKtYJpigSHxLXF2hMbao1C3lYTepEKxjY gfNuXlCqSxYHTCz0EvSGi1cVvqY6OzOXXbYxW6n KHgULLwJCcpATGbKNInjuV4nF73KXbawnA3bDDu l5Vdy26hw788sL8ckKKsNZR6OUQrUKFpuWCcWGU gQQX4GWRsoATsL0w4UaLwzPYuR2L9KlIhjCYfQ2 O1EjWsbOGfM3G0ZlGbwFRoQZGfpPLiVp4wrFZfg KPcya7fcu70UPS4p8ZjcVeqOMN6OZL0UeMiRz4o sVAsHNHaWFYjnKKcAOMiYC6rqOMgQMHewK7tffy fBFEvWwTdvvimSIWkyJobdwMcVa8ubIhyZZD0IY ttD9qpxZ3rOtZ6LMtjB8wdqY4qBAk5MOhqaLS3D SAxdL8qML8dviyyj5mgKuCmSC2hezsux4nxEtUq EE4ofsg7i7afJzRaXQ9pqarqd3yfBjBaERngOVZ gnwahLNDmt3TaletnMFSlw6WuW9OxrAocI65xtM egJ37mXCUycExbyA8lwDohiO2lAwCeQrNmTLkhU XJkXHBsYWluXGYxXGZzMjBcbGFuZzEwMzNcaGlj kIsgFNznLtFcDRLaZQtaX3smSbIoUnTqHMVYGwS HXYBasNRxOTFhbuClq1BtJIbxyzXfZXYxbIRpQQ gqwKtsbCviIWTisXnuucWkI2K1ozPaFQ3bGYUpX OYaT8LsAQWgQ15nALNtwP6iPRLrXK5gIOXtor8k herwaJKngGLkKL3dPCXceeQdx7OuOP6oSH44bFZ siPgxBVyxHUlem6dsaFQxi24pnKH9kXPcxLVuV8 0gMRFvmeAhK2hbBeRnWiKbBP3hOAEcFMkbTOdtb bx1xSNxaDOgjJZ3YPEekE9feB00edBnliNBUH2m bXwpJCbttC1vHFZrVQhlAORnE8IqyQ7tPV9OTly wMOKqTZGKA1QkQ32dcGKutF== MICROSCOPIC DESCRIPTION (test code = t6nvrUVpFQWldYH2VuVtWFMpf0eog0 BsdHBncGF 3371) vYFjrhXHbyqGprt36bMG2aX94HE7uCRJdAuN3KD PeepV9Cns4NTJjPZEjxQUjG906f4jsf1efdwAxv OF8sMxzABQkMBAvRWazFWPlAnEvTUTCSo7AOHKK XHBhcn0= SPECIAL STUDIES (test code = 3376) f7wkgLDjWDIoyPK0NkJhATSnz6tme0Lx dHBncGF cDRknsIIrbrQtss82cNS4tV45YQ9aIKYcShV5GX RvdwB8Snp8UZBbWLOmjDSgS792NMAtVDExuOnam gr1nW69VSCdbP2wxEZrETz6TVZwzvNgrFnysH2r OdTaIiVrMvGUsJKvlZ68EHIilwY0GHBqo25dh3R owJpbgsLuHRYbSFscR2o3LWItMLWuSNT9g8Bcv6 FtnO3zpP6yrNvsyC1yzRIxlOI6prulm4Tyk8NaK 3ujuAIraAQtxkUxMUNxayLRLG0BVpAHZW8tI5TW MFWXAdzvQfGhHRjyDXUWAFkGEFXLFOJ6GKBGMRV sYJSWVDhiERUeM55beMJllEZZyAkeFTLgCUeedE jpJOC4GKNGfv2af3ZvMBJenh73dzWqc2KlvWi3D ADan787ze4vquA7IXSfHEJ5QFe3KRDeAVEwoB0f ScO7oVRlLDNbRQA8MQY8MMWkq8N6DE8aUUDwZZN gBCErriUhq1wnj4drTOLzOES4rmRmaN8gJ7BoHZ Ojn2XvlXrpCWHqbNbohoFsPSVdlBZkEBTeiG43G UUozMQabFFxNHYpLRG1WBwmhI3pQzAUzdHbyq3d fJNok0OnxHi8JHFsvjTmtrBaZUKrslHrF64wyAK aeAYfj7cwqaTrsyNxzASwdWMrMTZaAXH1XHh7YW PeNNkiAXBrSUzqAGAjKJ8ipN4ivYfvqZ1bvENes HJ2owbvnYVuoN8dP3HnXUTkz0Akpwmgo1MmXTMx dxCiln6wPGHdwDFZTFefu9DpV7JrSVa1a9GmvCp eTCjcSXy1MyDvSEDgoBYujPAGWV02SFJfFKIujR yikK6wlHDDEKLwzmP9z6C6SQfmKOWwQJn5NEcty hWnRJXcyC1zNZHsAK3mBLk8grJoIXEsf7QbJD6s YKZbkQLvMRO5GMYet0NiZ2Stl7UpHKJpBWRzhz4 mmkIaQuHPxAJgRXSspn42VVNxNS0gL1uiGNYwAK VghlRtrMQgi3AgZNPguDA5mIYiSE6NOdZKh68gM CMiKYPQizVqNQMwvDkqoNX4wkL4pW7cTbYWpGKm WvVNBDannuHiAVIgkc5kzzEqNSQnUWRbp6QkwCS bzOPwcoLvE1Nxf8EtXJCubm94UMywdOFhhe22NG 0bO8Zqj7MulD7fESkoPAWqy9JctJDsbQUqKGMst 9XxX2ptsiweTIgyiUYxcU5oJJNrTHr5YONcb2Bc JDXzo0JpRsPumbDxGIYvSXZnBYZhyQ32KIM4cZc sfGwxzzHaSF6zRHPkkiLxBTPrBYHcaI7lADlqvz EaOAXyrwL3p9W5JUbiVJAdxfOuAhonFQP1zaLsl tC1nNKmY4zsqocdBIrtJFYdg7PjtB6wfDGSkRHx g0AplUOrzCVKhFEwWX0vnoHdBE3kEWI6LIceGPX CFSNqPKzkEOFcLYN7SBlnDunkIFQ6miAeJABro4 UnCHeiG8wcM43qlXaahYd1cXBrpSsvlAGenTBaI YSqbfH0x3B6ZQRvb3OaduqsEQWhlg2= Gross assessment was performed at (test [facility] enter, code = 2777) Department of Pathology, [address] [place] [address], Technical component was performed at [facility] er, (test code = 2778) Department of Pathology, [address] [place] [id number], Professional component was performed at [facility] enter, (test code = 2779) Department of Pathology, [address] [place] [address], [facility] [id number] 10:56:00 Test Item Value Reference Range Interpretation Comments Case Report (test code Surgical Pathology = 104) Report Case: [id number] Authorizing Provider: Vandana Tejada MD Collected: 08/31/2020 06:37 PM Ordering Location: [address] Received: 09/01/2020 08:13 AM Service Pathologist: Thien Radford MD Specimen: Groin, Left, left iliopsoas mass biopsy ADDENDUM (test code = o9trrVWmLJOwqFV4MnNyBY 3381) Dqe4rcg5EafVHzlJHiWAwy kXWruiJedg19uQF9nF79SN 5wDIZiJyO3PSJxanZ1Oux3 PWRqBLJprRKiY836o1oao6 udmcQwvIM1nZwcOGMkZHRv WIuaNTPoTcNgXK8giJ7xlX zlbF3pzPIevPIigDIieLDh dMTiWPMdwiVjgv6eTPOcss PblK5aujCAZZNwKZ7bwjU6 wsD6BUG1oQSucjLvsMvng0 IoJuEfHNsdeyR4kjHsFZOb t1KjgFh6XNNli4BpK6WlLJ 4gVGhleSBhcmUgbmVnYXRp puAlWd0zYAomhqH8hH2gNO BbSCSoMKNqn45dlfmdYO2P PRWakD0cwCsrrMFoW2wmNU FjdGluIChTTUEpLCBNVUM0 XWCjwgDlX1PFSOUzHZQvp4 zaIbJmCNRkjuJruF8dLUef JvgnW2bpYfprqESbjjOeoT FibGUsIHJhbmdpbmcgZnJv wYLsKDR8mcU3RQXcOYlgNF LqrUMcZDBsTNBuJV1qhVGy dGljIGNlbGxzIHByZXNlbn CpGBYxx14dqRFaaKWgtLk3 i6etYNPfKSV6owMqEQVtVY NdZXDaIQIejGWcCA0zUCKh ZWQgbnVjbGVpLiBUaGVyZS KciuFggf6pnzAdFXkgeWHy gwIohIKqoTBcfOk5q7YkIe VswXg8seGbHTVrOLHnqkLa OPjwg1U3JDNzeLwxvzMwqC YoAP8jECHbGXYeYyDdYMIs l0Nzjw6ogDXhVUKfkoDCej KtPUawUQD0sCEcanT6hHRy CU9hTHTgTVJkIHFat82eaL VzkR7aOEYsuc7ebaJ8GVLp p1pjxtAkAUvdPTAglb9ySE BqtX3mVkWfaWCdmGeoOZ37 LlxwYXJccGFyIFRoaXMgY2 HkFSV1gRidPYFxRKReHnZi yjKoNNZwNW0PKSHqRBYks6 6rYGMlmgSrk10vhYh4BKGy k21rLYOcWKVlVJFrMJWrXV WviC1wiGM3rJswFPQegKcv gy3iiHZeLVOfnwWAsfXkGO InmSMcvC5hxzOlqGToXJMw RHj9GJOxNyCHsW5gYPTlLF 4sX7rpIIxtmkteILD1 DIAGNOSIS (test code = a3ikfQKeQDWpd9uoEZVcwX 3220) FuZzEwMzNcZnRuYmpcdWMx IHtccnRmMVxlcGljOTIwMl rshnOoGLFxhVVwX2Yochuv APwrOO7rFU4vdTpbqLDpdE EbLFJeFeBhz5dyw620yVJk b6weOCCGhyjuxQi4cBktB6 5os4N1UqwbO31olDKhYHhb bGFpblxmczIwIFBBUlQgQS NEVGXEIVpLFH8UE57ZWsLO GEZLQWSVHC5UN4v9VSXruo BTUElORExFIENFTEwgTkVP YCiKP60eOSJesmTUGH9GHT BJTlRFUlBSRVRBVElPTiBQ JT6EKF9DSPnAMHUIB5WPQV 8RDPoDVM8TFsjwTCEhJRDM KW0WQX4xLlSWU3KWQNFNLP TZJKyVTc8qCDPlbr89GTH6 SyLfw8Y6FTZ0DTZlMZZic4 lcZGVmbGFuZzEwMzNcZnRu NvbwdJThFZKcIzCys9vsw4 04cMAgl4tnDONhQgB7lHZo GQXmbXWfQ210GOJqWNely7 xai0LgPCMbjETez8X4VZWZ ohsokFl2sHrxQ42rj4E9Tu dzP4aeZWFcXJItQ0WsQT9w LOQgQua6JCD9BQP3MBAyYC FeM6OaBW0aOWJxvTPgVVb7 r5ozfUhjFYTaCRB3e9jrGK rplwGjQL6sgw6tsIz5v7lb czEgRGVmYXVsdCBQYXJhZ3 AibTpfPu9aqJw7nEciWzcd CUW0Qqh8TZ3cva48irp0nI umJAPtytokWwJ5IGefSMXt lrwtMUx5JBvsMFDxcNL8JX JozWScR4VcCZDqRV2txih7 XNT2XFbyAWItGtY3UFPsdR JoXLXsbRrhJLnzl454QBR4 YjRaLM2pR4Bkd6W2tH1aqG KgDOYkzKIpDjLdFJDsfn5n oHXxHWfzb8VdNGK7ksC3tL JltESbSMVlYvY0ICseWR2i mv94KAZtEKG5nm2wrYHfsZ xffjJlfZRjIDngB8LwDABi b054CJWlH3TlZHPgc9D5me SiCzZwXSQlgLP9shH3ZBIz VV9scexow7bjACgjRGtvYQ HyvxH2jhY7KPTvaNGvE7Pe oP4vYVYxDZ5apatre5nuAD N8IJxvDNZrIBU0GjMuZCKd k6Aurjh0UhYhf5ZvkKGfEO xmA22iu079NHUsngUkO1bs bGFpblxwbGFpblxmMFxmcz W6HBMbWPoiedecWSCcNSpx S7ddBgPeMALkxAjqUApvr3 NoXGYxXGZzMjJcdGFiXHRh Oqe4PCAntWBsHDWzKnXhK0 tgjjtlRmUDUXLdi0scO8us oNOMyGDdQ1IzBIfijhXcGO wgNQayMRFkFIA5OJ04XXpi FCBvuf51 CPT Code(s) (test code d7gthSYeDXZleNX0MmUvEJ = 3357) Ikd4tal8YeyOAsnAIoSJbe zQZnecAmyr98tNQ3sN82DX 9nIWKgFiV2DLWlceS7Drm1 HBWxDOWqcAQdS954z0thj5 sihzUjsHU6nEzkFLUdYIFw YWluXGZzMjAgODgzMDUsID w4AbCrOKZ0DDV3KHi3VOJm cn0= CLINICAL HISTORY (test a0stzIOsRUPuuXK0GtZiLD code = 3356) Wqb3bgd1QynYOppFNfZApc mVBmljSllg83mQY8hM00WT 0lEQXqPkH9XKDjucX6Wzk5 RDRkWGTqdRPzV730w4anc0 bizeBorWA7jJrvLVYwZVDh YWluXGZzMjAgTGVmdCBncm 2fcfHgfDF5W7jcqG3ug21k uaGtIIApTET9PgYvmVF5Sv EgeCAyIGNtIFxwYXJ9 SPECIMEN SOURCE (test l4qxsCXgPPAvwFQ5McAcCR code = 3377) Yuo1iek2TauPIrcBVpLLof cZLnltLcru48jRQ9hO47QP 7mEANdJlQ8POZjddF0Wim8 CCCfCSDepWShF119p1zrd9 vlelQahFX1kVxyCHLhSOEu YWluXGZzMjAgTGVmdCBncm 3pzc1vnJpktCKsASOfvSHq fQ== GROSS DESCRIPTION (test k6xofRHaBMYstWArDwLpLY code = 3366) BfWTFep8ndOKXwcUPiCaSx MzNcZnRuYmpcdWMxXGRlZm Pqq5ilp257lFHdz3zsSOGV tjcmhBm6u5stIRQuOqX6hD KbHJjxF1qugtHciZJnVUAx VMl5mI28CBLecY4thUSmWP pfkfZbOrO7QMhdHBZhIqI0 DYPvfMMrCXKwM8gzOIEhRH tgOWWvXJxecBAlWXO5wKfl z3V1pEIanHDuwKkxGmDpRe TzSADKb5PxMLz3gYdeE6Dk SSWlLlI0wIXiEZPvGRqhEX XiBLAufjE3kZ54ERniyfU3 qITrm3Fxf07mj157mS4lgD WtQVA8PTYpKKVasVEnWFMj LZF8SQXocCAfJ4u4HxRdzJ GdS6T8OiPfgLMkP0E0BkZi mKUrZ4N5ZlHkwGIvRDSsrF NpBm3goWNifJEtkg8vmk54 TAN7n5VlbYzvGLK3LFS9Pc HcCz4exDCrAFDrENDjyIXh XAPyAK4ukLEiZXDooJ1xbj xjXHBnYnJkcmhlYWRccGdi ynEbYv5hlWzwLMV6NKedC0 ftoD0zNaL8OLrrF5zclW1j RGl6QVipsXS5GGIliK0mKY 3rojmee9iwEeMfBO3gsphj a6mjWmYhAB1yeuc9i3dnHo XzRF9uxzthz7yfZjXbAFnl DTRewmmkHIHou7JnhalxLS Bdq6PjI0CfuVueX89avHdu F06dIBXkkRnwhH2iiXwpzA 5cZjBcZnMyNFxwYXJkXHBs YWluXGYxXGZzMjBcbGFuZz EwMzNcaGljaFxmMVxkYmNo LCTnUOyfZ9kmQhCsHoMcUW BBLiBSZWNlaXZlZCBpbiBm z8FoREpaljNvKKXntFYxSK dpdGggdGhlIHBhdGllbnRc M3P9kzNvBH2jQVWtLIYwE8 AjXVUqS98mFEBbiC0oDAVz OQ8vOBVzwr2rjvlvcRHcwH ToBV4wAPJryjDjw3SwWS5r NS13kDQhhDoiMZlwOSxfa6 rwbDSsc79wtEQ9xDGspBJn X31kOTUdhyTnR6trIoRlZe DnCD7mIBZjRKtpYVjchbz9 bEYeeJBvdOF5UCVqeN6pwS 48cbDzxrJJRM2cmXhfWYcj cO1pVAOsSCltERRxD0HgnR 7mPY5CKdufRAOyRFEDD5Bn E10hrFOnkE== MICROSCOPIC DESCRIPTION u2cxeHQwVZZxbVU5CcRqVV (test code = 3371) Atu8bdc4SbzWMejHZzDHba eUYsgtUclc06xMB5jI99YQ 7iOGJeUjV5GXIdnnR6Gnj6 PSMuWSXfbEXkV860e2rps4 nzwwTrlAM0eKeiKNZvXICs MWikVJNoRmUmGTKGFl7LWN VEXHBhcn0= SPECIAL STUDIES (test l8qkrLWlEUJkuME3AiXcWJ code = 3376) Mxs9sfo2MsjDAsgKZdRLpk xBYchqJmyj55zRG9yN95WT 8yRYDeRrK6YKOfgyR7Wjn1 UEUeSWJzmSVwR444EMDiCY LfaJwojmm7sN67NRXeeC7r cKShBVo4HDJxrcMidSnvvN 0hHmSlFcFlUpQDeYZoaF12 BWCyoqI1REZxw04wi6RrnS ntelVeLNMuBUgeH7o4MHYt FYWvMBG3t8Roa1BouL7ruC 3zgHhruD6naQFhrUL1lres k5Vza1YcP7tipPYhxVOvtr DjGKIrsnKOVW2XGkFYJA3w U7ISQKZZNjtuGxEhFEekEL MSDZnZAFPPOYZ8TUZHBGEn ITCQUCnyTRTsJ79ozOWqmY BTbGlkZXMgRXhhbWluZWQ6 YGFVyf8gu2NfQJNwpi44le Tnz3RsvWe7RAOct042ud7l ofL7WTTlPDX8IJa8ZEJnRK SizG2gExT0iMMyLUZkKVQ8 KOO9ZYXkw9A1XO2qXPSjCA HjUCIfxqFrz4wio9neWVYl TEF5clVnvV3sC6QeTAZcu7 YgdGhlIHBhdGllbnRzIHNh iKHiJKUhtS68VKIguHFbrV GkAUSnQHB9IBvmgY1zClAC dlZzbi6eqVByw1UuzAe4GR OezcXvcoVuPTWjisKjU74o hGKlgLMwe3ooveBxzgCwxD WvuNQqDUJjETV6LLa6TPFd WHejPKXkVKmkTJYvBI8hvX 0hcAtyhV2ywOAprDH7likf cEWorF0uG8UsTUIgl9Muic nev2DcXHNiykFksv7wXJEo qANFHYrnh1AtQ0PiXBw6i9 NrzIbbZMhqGXb4NwKwKSYc wMRhrOOYUF90XQDrVWOubT orwK3ygZXXGKDmawX1u5G2 YAlyPORqXEs2OMluyoKeEX OdjH5yHSKsNV0nZHt5vrUu KDFhb7YyXF3cGIPneGKrFV W9BSWit8YgV1Guf0EcBMGb ADNqiz7dywEdHiQZhDNvEQ Jquy97OTSzHX0vC3euOBYa PEKlbbDfnPPpo5RjAJWtgN D0lHJgGZ5GZyGYv52xRVYo PTPUmvAnMASttIagrFV9vv K5tX8kZbYLwKWdNwOEUFmb jjElJWPhln6gzpDdZVGuEH Zzw7GlsNBcoMZulqQtJ7Ox e7DfXITxgd46FEvvbAAekq 70GX1nZ6Mro4EqdF7gKFdl PKCfd6UuxLArcKIgPHZgt6 VwY2lyhjnjVOmxfVHufX5j JZNlCRt0TNJdu1VjUSVwr1 QgYmUgcmVnYXJkZWQgYXMg vK64UAL3lDxekRqlbpZjSQ 5jVGXwmwBpUNZfKNMbfN6l XCeoxoIvMMUrggZ1d8D3GH vaOQByejFbRtbmQQT8umVy klC9tYNnS7kogfvoSBnpZF Brx9AqgV4rhRXZpEVym2Zm vGLhwBCQcZWgTH3rvbZsUM 2dZKZ0SQymUYURGTZhCNiz SHSpVLX5CNksOqhyLLV1zu UvSIJdn3ViRXctT1ccU68o aGkhaJy7kWTszNctiZOukP RzLFBenzB2u7Y2JCZbx7Lp bmcuXHBhcn0= Gross assessment was [facility] performed at ([facility], = 2777) Department of Pathology, [address] [place] [address], Technical component was [facility] performed at ([facility], = 2778) Department of Pathology, [address] [place], [place] [id number], Professional component [facility] was performed at ([facility], code = 2779) Department of Pathology, [address] [place] [address], [id number] 10:56:00 Test Item Value Reference Range Interpretation Comments Case Report (test code Surgical Pathology = 104) Report Case: [id number] Authorizing Provider: Vandana Tejada MD Collected: 08/31/2020 06:37 PM Ordering Location: [address] Received: 09/01/2020 08:13 AM Service Pathologist: Thien Radford MD Specimen: Groin, Left, left iliopsoas mass biopsy ADDENDUM (test code = [id number] 3381) Cjp0yfs4OvtYQwdSOsVMut lTIwkgLyyv52pFI6dH78WA 0iPMPcFoC7HUWeojB7Vxw0 VBLvFVSejWEuH565u0dnf3 mkahBftCI5vBetEJSvWFMk FVauURXcMyUpIK0jbM3swQ feqK0wcLIdkSGecHWalFCk kHNjEHFsluKmzn0fNJUchs ZrnV4sdbNPYXAfAZ6uqaH0 wjL7UTX4vHBxkkXxtNziu3 AlPjAcGCvgoqM6pfHdITFc f7BmeVs9IQSyd0PcJ2LvSE 4gVGhleSBhcmUgbmVnYXRp abIvHn4qCIvyneE3cG3vGN FlZYAzWXPon55yrjmxAD8V JFDweH3gsIopiPIuA7pgFB FjdGluIChTTUEpLCBNVUM0 WGUcyiAfU6WNGFWpGDFjr4 vyMeHgNSLaqxDtbC2dRRhl ZtfbT9sgQavjjAHjzbStxR FibGUsIHJhbmdpbmcgZnJv cDFmXWS7hwK4GKZhPMukWM NmbWMnAFQhSGFjQY0vkMBh dGljIGNlbGxzIHByZXNlbn VkTPSee72pfVEzzLQcuCt0 r0tjZZLrNZM1dfNwDRRxLP LxXUOoAZMtbEDdAQ8gNVTe ZWQgbnVjbGVpLiBUaGVyZS CmedDuzb9iflQsDTzzzRZi tmMrwMEgrWUbuWn0z0DbMx KddXc6iyHnJEYdOZBydvZo HSyef5T5VTRtyLopxoIcoV GxBD3yUUFaDNOuMaAhDVHu e3Pelx6smYWsIWArowYQxi BwJCfcBMC8zJNdfnY0pOVo PY8pPWPxVVBwSCFas29wcW XecD3aJUBanv5bruE6QKMw m0ayndSiBWecGTXkkb1jKK YrzC4lKyJacPQhyQbwUE40 LlxwYXJccGFyIFRoaXMgY2 AkFAY5bWziPMEwYEPnHzVk ulRnZFLpFG4EGFUtVWPtk4 0qWGGxlcBpe41rkJu6JBKv c70uGOPhKDDaQLNpTAHzLQ VhrM8ryGE7rCrtXIDgaHsa yj5rkPGlLJXeydFDdbBxYO RjoBUvnD5oyrZdtBMhZZJe EGw5VSGyNlIQtT4rTIEdVD 5oJ1mxMPcrdczqZGO1 DIAGNOSIS (test code = q9pnbOWdRDKvu6osQXOavM 3220) FuZzEwMzNcZnRuYmpcdWMx IHtccnRmMVxlcGljOTIwMl hbkoJdYNMftPPxD6Lvkyfq OPyoRR1rBW0pgSjvaAMhjR TrCWOwVyGmu2yxy646oMKx q7mvJEPGatgbcGp4pNbpH0 9py2S3LtezS60ssZAtLEtq bGFpblxmczIwIFBBUlQgQS OMBMTEJFbIFJ1XN35YOqZZ JAFEVWBCPB1FY9r6UPWtkl BTUElORExFIENFTEwgTkVP XMkPV00uMWXepbTJKA3BTO BJTlRFUlBSRVRBVElPTiBQ BK3UJI8UZZcCYLBME8TWZB 4KSAmYFJ2WWrvjBJFtRRSL MV3SNQ8bYzNFL8UUYRIEIB MZKOtZWt3aNZKvnm96GKU9 ZaIqw6S1WDA8KFYjDCRqd8 lcZGVmbGFuZzEwMzNcZnRu IwynkUCvBYFnMiNvr1skd7 71cDHcg9jhPRGvMoE1iHWq FZEuqPExG197SOElPDudw2 ipk8JyOGYwmBSqh8Q3SHHI fzmifIs3xZaqD91if4E4Ix juE0ayAQZnQUIpD7MxMB1f UNGnDid0JDS1IXG6VIRqUH KvA1JzQI2lZKMiyAVaVEo4 b0gqzYqwIAYaKXG8m2znZX tmpxOhYN6tqg9doPs1m2ca czEgRGVmYXVsdCBQYXJhZ3 GzoTacWg9vkSr2fSihHzzy ZWE1Hvr8OB1urf61quq7tZ gxZQTewloaTrF8ZUslHEMy xhqeFPx3VVdiRNUuqDW9MF ZxfYTwL3CbKBUrOA7yska8 JIC7QBqbPETtRcR1ISRtfM YmJTGigOkoUXnho096MCZ7 PrKoOS6iJ5Ssn3F8gT7vtR FxCZDjgIDdNvCnKPClwz6h hNYyRExmd8WqQUT0rjI1cG PjyQHdPUYcWuG9GGniPC1f dc96DLTxYML3mq8bxAOfhE pnxnJiyCNeMHjkN6ZnVKYr t209BGMaR9PdNQIrn8A2rb QxDzCpIVXawLH1idA1OVIm GU2vjullg1khIBoiCMzpMT IuehJ0baE6AFSejKItQ7We qO8hYJXrBI7ogmemx5vtUR D1TJghWNIhXGL9ZnHkVYOp g6Zetyw2AaQza7TljQPuDK ngP60gs688PHMmrmKjY4dr bGFpblxwbGFpblxmMFxmcz N3KWJyMScrdulgHZJjDHzl L3alRpJbZQZjaXtjWKbbr2 NoXGYxXGZzMjJcdGFiXHRh Ljs9AMNgoEWlGLZyWzWwT4 ejeonlKdBXLZQrc4qzN5uw qLZXuENmE8NwCLnmpqPaFC nxOQysJFFdNAU3EG34YTek YMRhrl83 CPT Code(s) (test code l4dfqGBzFZIzxHV7CtSvRC = 3357) Fuc2ldi2OttLVxdGSwJQuq nRUomwVacc33fUG2oS15AF 2kIKGbLcQ7YMNsluA1Rwp1 LQSpCDWnsBEdG005e1xak7 yjvzRrtTZ7aXwrBXZgOURs YWluXGZzMjAgODgzMDUsID v5DxLeBVS9PZO1RLh5FSAw cn0= CLINICAL HISTORY (test d9huwTMaDZWviVX1YpJnIF code = 3356) Qkw5cix0OtcTAqdTUuJTyp bGKfsfJfpl91dSO1mD41RQ 4aTUDeVeS2PXSzrkO6Qnx8 YNVnWZOluNTdG018h0pxz4 wvrcZyiVI0lLimRXLiZMBo YWluXGZzMjAgTGVmdCBn 1iwkPunIM9G7lfiS5nm61a sxUlUVHuTDO8WrAjcCO2Uw EgeCAyIGNtIFxwYXJ9 SPECIMEN SOURCE (test j6mceHChAJLaiFO8MaStJV code = 3377) Bov0yfn0OboXEbjJCsLDwa uVRfmuAfls47fHD8qA84TJ 6qBRJkQjX3GUQxgrU0Fro7 WHSvSYVmfNEqB790g0wsj0 rnonVboNT9fUepKHZfZQDi YWluXGZzMjAgTGVmdCBncm 3dzd5vkXozqREjULHrvZOh fQ== GROSS DESCRIPTION (test m6sxaMZiWKUdiILmVnSlOI code = 3366) WoNNCzl1hsYOGydHQnUzTo MzNcZnRuYmpcdWMxXGRlZm Xnu4gpy211jJPmy4bgOPVB jymeyRg4g1egJPNfDsH0nO MrCTjuI7ajxzOsjPPlUQHt VSz4xS36WPNrnF4zeGEwEA efmeUrGiC1JCsjKCUsLrA0 RLGnmDQmREAzX3bxUHMcZT oqCTBuYDqwhFOsJEN1hIcq d9L5hXOekWUwuWdtJvBpMe BfCPRKm7XfTBx1nSidC8Qb USPbGeT3sYLxYBDcQIfzYX UjJUXwtpH5bF53LSzxktE3 pOEdm5Gmd65gz678sU1mkE XxSBM8RBJxVTGdyTLrKFNt MEA7ITNskOTwC7w8MkFtxO VhD1J3KgBklYRyX5G8MeOg pJUhT9N9NqDulKUyUEOttY OxUp9xzUWjdNKanh5btj02 YSP6p6NauPolMYE2JGQ7Nc XhBg7aoCOcZFQgTNUeqOQp YJIbQY6ohGQpJAIhkL3jhl xjXHBnYnJkcmhlYWRccGdi hgVpSv5kwQpcMNW4VRzvC3 xwtJ3zEvT9MVkbM8nrnH5s JSb3LRlmdAV3ZXSzjP1zXR 6hotajc4kxYwSeHV3unwig o1prVcDwAI1mely4r5atJt OqQR1jljles6knSwIlCBpp KIGglnpxFDXwv9JjhlgvZN Jmn8VuO5UxhWzqR42afPuf V33gIDMhhBrktQ7evJiwwD 5cZjBcZnMyNFxwYXJkXHBs YWluXGYxXGZzMjBcbGFuZz EwMzNcaGljaFxmMVxkYmNo LOJhBGxfP7luKeYxCwGvEM BBLiBSZWNlaXZlZCBpbiBm z6FxYXhkrzHcVZXprNYvVH dpdGggdGhlIHBhdGllbnRc P5X1hlFiCI0oXHWoAKGnW3 BeRXCtG48sHJUwxG4nDRTf OA3rVYZuja3mgvrwfTCsgG CzLJ4dBVNfieAqr8PrXM5d OL71xFXupFrpGJobPKkwo6 brbDZfv56nnMR6bFZmqKXi T70fANXcnsEdH2tvJaMtGv PkRD4dJFTwFEhlSKdfvso4 bOIreKMbjYI2CONdjY2qaK 87haAbcqFONR5lnCamLNty mW0lSNRgIFloUPMlV5KszC 1tNP5VJlbkOQYzTEXUZ5Qc T88ehKTodZ== MICROSCOPIC DESCRIPTION q8eeuZQpWSPqrEJ0JiSdFZ (test code = 3371) Axm7rel2NjwDPijSYfHEgz iRNignHqgs66vNU1hD72WP 7iNJUwQeS2WIYlixA2Det5 HETwCPOitYOeZ185b6kpo2 ooquAfhFQ8jJoaMTAqUPNv OEhbJJSvKcGgYGJCDt7VJJ VEXHBhcn0= SPECIAL STUDIES (test g3sccNXbTBLksKN4OgAvUE code = 3376) Hof1jbv5GiuQUetFNbCXmd wKWtskRsmk37jZN2mG22MH 4zOEZwPpC3NUUsmcG4Aka9 MWSvMORurRZeB614MKEaCP DtmLiqtdp3jK10KEXutE1j lTSjJGz7EVYwxcXfhEdjgD 1jTdKjMaOgBlPIkEOvdU07 CUTaafB4HKDun02ay9PudA rxdgQqMANsCUlxF7u9QZQq AZDcODS3r4Kqh8VryG8nkZ 5axIpffT9hnMYxwER4lrtm t3Feo2GsJ1hocIZtmPWmey YjMVAoaaAWOJ4CJfLVGP7c B1HATRXGTdryArNmYIakSD RIKLiWMCUWJNQ1WHRSTUDx WYFEJWadZMNyB55gfKKqmO BTbGlkZXMgRXhhbWluZWQ6 CGNMal7my8VdOPYfdo72uk Ufe5RazGl7SQVjz456fo0g guY6GKWiXIP5XUe3HZMzQD RbqW0oRsJ4vUKmZTGnHMO7 RWW4GNCly6Y8YJ0jWALvUG AsVRQaqaAtz8ima8dqTTNz WCB4vyGqpY9vU8QlHOXwo6 YgdGhlIHBhdGllbnRzIHNh bMJsBCPsdC45WTNouHKdtI StHQZaTTC9FNjxqO9tQnNF dsAlju8kdTFsl3EfwWo1OW GmvjNncvVxLXWrsnGvG05k iAYhnRQay8vmqqTsmbWhjO KelYWwTBZcCEC8MUj9VBHd FQusQULqEDwqEYUaPB6fjL 5icFclpQ6poRVifOI4jlpw eXJtbE8gY8SgYVMrf7Qwhv ygn9WeTCZnahFqbb1fGNWo dMBPUByak2QaF2MwQVr2z9 McvBjsCIglMHl1AqRrLXEf hDEepYOOSH73UEDkGKZuvJ apsO1iePRLCXAhnhO6p8G2 CKhrPAIxKHh5XVxwuxFkPM UuuM9rLIEiRL6cCSu7lvCo WCDsl2XwVX4xOOXdqVFkFR F2ISCrx7HiO8Fsc8TeIPBf UGNixp5oioSyUwMTgRCoCQ Issy06MMVsZC5mO2whHVGe KUYprxWkcJEsa9IgXHMmpL T5lNLoCU0UXqWLr90lPYQw PSXIptByXEBurSgnkGM2gx J1wV5yWfPKzYAwPcAVQCub xnSsDRKoyf6hdmMkWBGeQI Byw6DhpZCayWQxohOaX5Jk f8UpCXXduq48FRemvOYhul 92SI7vF1Ozs9RblE3fFLqs TPHsx1AukZCfeAOrDGLpn1 LbS1vzkxagUMvdgQLfmD0y GKJiNBg7MYHgg8ChSHEng0 QgYmUgcmVnYXJkZWQgYXMg wZ32XNS4cSslyHndyuYoFQ 0lZZBgluUhWLQfQBQwuY1l BXbgboWtPKOofkE9k0K1QE tfSDNvfzNoVysxMPP9hcCl jgG6mKIoY1ehjbvrVVwrJD Xzx3IzcA5mkXNAkLGij2Fa nZZgmRTPtASqHS5pwlYvJU 8tPJN1ZTerFJYYEDCxHAgh CMOfNYA6WQhwGjnvXEK5ki FwEIZyg7IrXSviU8mfU48e gIxsaEv5sSOmbNfqdDAagP VeHEOvenK5p3E1ZFApz6Tv bmcuXHBhcn0= Gross assessment was [facility] performed at ([facility]ly [facility], = 2777) Department of Pathology, [address] [place] [id number], Technical component was [facility] performed at ([facility], = 2778) Department of Pathology, [address] [place] [address], Professional component [facility] was performed at ([facility], code = 2779) Department of Pathology, [address] [place] [address], [facility] [id number] 10:56:00Surgical Pathology Report Case: [id number] Authorizing Provider: Vandana Tejada MD Collected: 08/31/2020 06:37 PM Ordering Location: [address] Received: 09/01/2020 08:13 AM Service Pathologist: [...] REPORT TO FOLLOW. Signing Pathologist Direct PhoneLine: [phone] signed by Thien Radford MD on 09/01/2020 at 3:59 [id number], [id number] groin cyst/iliopsoas mass, 6.3 x 6.1 x [...] evaluated Immunohistochemistry technical testing was performed at [facility], Pathology Laboratory where it was [...] to perform high complexity clinical la boratory testing.[facility], Department of Pathology, [address] [place] [address], VrdqvlHenry [facility], [facility], [address] [place] [address], BynydxHenry [facility], Department [facility]ology, [address] [place] [phone], [place], CHEST, WITH CONTRAST 2020-09-05 14:16:00Unlisted Reason for Exam - Click Yes and Enter Reason Below- >YesUnlisted 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 on09/05/2020 02:16 PMCT chest with IV [id number] 14:16:00Interface, External Ris In - 09/05/2020 2:18 [...] Smithort Verified Date/Time: 09/05/2020 14:16:01 Reading Location: [facility] B1 C013Y CT Body [facility] 2020-09-05 14:16:00Interface, External [...] mid lobe subsegmental atelectasis. Signed: Brie Smith MDRepst. [facility] Verified Date/Time: 09/05/2020 14:16:01 Reading Location: [facility] C013Y CT Body [facility] 2020-09-05 14:16:00Interface, External [...] MDReport Verified Date/Time: 09/05/2020 14:16:01 Reading Location: [facility] C013Y CT Body Reading Room [facility] Echo W/Doppler(CW/PW/Color) 2020-09-05 09:47:35 Test Item Value Reference Range Interpretation Comments Ejection Fraction Est EF is 55-60% (test code = 2574) PXN (test code = Interface, External Ris In PXN) - 09/05/2020 9:47 AM CDTTransthoracic Echocardiography Report (TTE) Demographics Patient Name DANIEL DEL VALLE Date of Study 09/05/2020 NEELAM Gender Female Visit Number [id number] Race Unknown Room Number 2146 Number Date of 1960 Referring Physician Vandana Tejada MD Age 60 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 Interpreting Eduardo Roberts MD Fellow [...] Velocity: 2.81 m/s TR Gradient: 31.62 mmHg [facility] W/Doppler(CW/PW/Color)2020-09-05 09:47:35 Test Item Value Reference Range Interpretation Comments Ejection Fraction Est EF is 55-60% (test code = 2574) PXN (test code = Interface, External Ris In PXN) - 09/05/2020 9:47 AM CDTTransthorac Echocardiography Report (TTE) Demographics Patient Name DANIEL DEL VALLE Date of Study 09/05/2020 NEELAM Gender Female Visit Number [id number] Race Unknown Room Number 2146 Number Date of 1960 Referring Physician Vandana Tejada MD Age 60 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 Interpreting Eduardo Roberts MD Fellow [...] Velocity: 2.81 m/s TR Gradient: 31.62 mmHg [facility] W/Doppler(CW/PW/Color)2020-09-05 09:47:35 Test Item Value Reference Range Interpretation Comments Ejection Fraction Est EF is 55-60% (test code = 2574) PXN (test code = Interface, External Ris In PXN) - 09/05/2020 9:47 AM CDTTransthoracic Echocardiography Report (TTE) Demographics Patient Name DANIEL DEL VALLE Date of Study 09/05/2020 DENYL Gender Female Visit Number [id number] Race Unknown Room Number 2146 Number Date of 1960 Referring Physician Vandana Tejada MD Age 60 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 The reference range was not u sed to interpret th is result as normal/abnormal . Albumin (test code = 3.6 g/dL 3.5-5 17222-9) Alkaline Phosphatase 106 U/L 40-150 (test code = 6768-6) Total Bilirubin (test 0.2 mg/dL 0.2-1.2 code = 1974-) Sodium (test code = 139 meq/L 030-721 5230-2) Potassium (test code 4.7 meq/L 3.5-5.1 = 2823-3) Chloride (test code = 104 meq/L 98-107 5-0) CO2 (test code = 25 meq/L 22-29 8-9) BUN (test code = 10 mg/dL 7- 3094-0) Creatinine (test code 0.70 mg/dL 0.57-1.25 = 2160-0) Glucose (test code = 159 mg/dL 70-105 H 2345-7) Calcium (test code = 8.8 mg/dL 8.4-10.2 07448-8) AST (test code = 9 U/L 5-34 1920-8) ALT (test code = 13 U/L 6-55 1742-6) EGFR (test code = 103 mL/min/1.73 sq [place] [address]-1) NOT ACCURATE CREATININE CLEARANCE IN PREDICTING GLOMERULAR FILTRATION RATE . ESTIMATED GFR I S NOT APPLICABLE FOR DIALYSIS PATIEN TS. JESSICA (test code = JESSICA) Blood Bank Manager ID - BALA M Lab Interpretation Abnormal (test code = 70726-6) [facility] CenterCom[facility] [id number] 07:34:00 Test Item Value Reference Range Interpretation Comments Protein, Total (test 7.5 See_Comment [Autom ated code = 2885-2) message] The system which generated this result transmit yumiko reference range : 6.0 - 8.3 gm/dL . The reference range was not u sed to interpret th is result as normal/abnormal . Albumin (test code = 3.6 g/dL 3.5-5 12901-5) Alkaline Phosphatase 106 U/L 40-150 (test code = 6768-6) Total Bilirubin (test 0.2 mg/dL 0.2-1.2 code = 1974-) Sodium (test code = 139 meq/L 779-928 3147-2) Potassium (test code 4.7 meq/L 3.5-5.1 = 2823-3) Chloride (test code = 104 meq/L 98-107 5-0) CO2 (test code = 25 meq/L 2027-11) BUN (test code = 10 mg/dL 10-04 3094-0) Creatinine (test code 0.70 mg/dL 0.57-1.25 = 2160-0) Glucose (test code = 159 mg/dL 70-105 H 2345-7) Calcium (test code = 8.8 mg/dL 8.4-10.2 02406-6) AST (test code = 9 U/L 34 1920-8) ALT (test code = 13 U/L 55 1742-6) EGFR (test code = 103 mL/min/1.[place] [address]-2) NOT ACCURATE CREATININE CLEARANCE IN PREDICTING GLOMERULAR FILTRATION RATE . ESTIMATED GFR I S NOT APPLICABLE FOR DIALYSIS PATIEN JESSICA (test code = JESSICA) Blood Bank Manager ID - BALA M Lab Interpretation Abnormal (test code = 09450-0) [facility] CenterCom[facility] [id number] 07:34:00 Test Item Value Reference Range Interpretation Comments Protein, Total (test 7.5 See_Comment [Autom ated code = 2885-2) message] The system which generated this result transmit yumiko reference range : 6.0 - 8.3 gm/dL . The reference range was not u sed to interpret th is result as normal/abnormal . Albumin (test code = 3.6 g/dL 3.5-5 13696-8) Alkaline Phosphatase 106 U/L 40-150 (test code = 6768-6) Total Bilirubin (test 0.2 mg/dL 0.2-1.2 code = 1974-2) Sodium (test code = 139 meq/L 086-345 1147-2) Potassium (test code 4.7 meq/L 3.5-5.1 = 2823-3) Chloride (test code = 104 meq/L 98-107 2074-0) CO2 (test code = 25 meq/L 2027-11) BUN (test code = 10 mg/dL 10-04 3094-0) Creatinine (test code 0.70 mg/dL 0.57-1.25 = 2160-0) Glucose (test code = 159 mg/dL 70-105 H 2345-7) Calcium (test code = 8.8 mg/dL 8.4-10.2 60434-9) AST (test code = 9 U/L 5-34 1920-8) ALT (test code = 13 U/L 6-55 1742-6) EGFR (test code = 103 mL/min/1.[place] [address]-1) NOT ACCURATE CREATININE CLEARANCE IN PREDICTING GLOMERULAR FILTRATION RATE . ESTIMATED GFR I S NOT APPLICABLE FOR DIALYSIS PATIEN TS. JESSICA (test code = JESSICA) Blood Bank Manager ID - BALA M Lab Interpretation Abnormal (test code = 58094-0) [facility] CenterCOMPREHENSIVE METABOLIC [id number] 07:34:00 Test Item Value Reference Range Interpretation [...] S NOT APPLICABLE FOR DIALYSIS PATIEN TS. Blood Bank Manager ID - BALA MSARS-CoV2/RT-PCR (Asymptomatic ONLY)2020-09-04 12:52:00 Test Item Value Reference Range Interpretation Comments SARS-COV2/RT-PCR Negative Not Detected, (test code = Negative, See 77924-0) external report for linked test SARS-COV-2 [facility] PERFORMING [facility] (test code = 07726-0) JESSICA (test code = Negative result for [...] of the Act. Fact Sheet for Healthcare Providers:https://www.[employer]/sites/default/f nito/product/documents/F act_Sheet_HC_Providers_L jtc_RCAD-QoD-3.pdf Fact Sheet for Healthcare Patients:https://www.[employer]/sites/default/fi les/product/documents/Fa ct_Sheet_Patients_Ly_S ARS-CoV-2.pdf Performing Laboratory:[facility] [place] [address] [facility] (Asymptomatic ONLY)2020-09-04 12:52:00 Test Item Value Reference Range Interpretation Comments SARS-COV2/RT-PCR Negative Not Detected, (test code = Negative, See 58525-7) external report for linked test SARS-COV-2 [facility] PERFORMING LAB (test code = 95583-2) JESSICA (test code = Negative result for [...] of the Act. Fact Sheet for Healthcare Providers:https://www.[employer]/sites/default/f nito/product/documents/F act_Sheet_HC_Providers_L ovi_MEGR-GrD-1.pdf Fact Sheet for Healthcare Patients:https://www.[employer]com/sites/default/fi les/product/documents/Fa ct_Sheet_Patients_Ly_S ARS-CoV-2.pdf Performing Laboratory:[facility] [place] [address] [facility] (Asymptomatic ONLY)2020-09-04 12:52:00 Test Item Value Reference Range Interpretation Comments SARS-COV2/RT-PCR Negative Not Detected, (test code = Negative, See 98633-3) external report for linked test SARS-COV-2 [facility] PERFORM[facility] (test code = 52878-0) JESSICA (test code = Negative result for [...] of the Act. Fact Sheet for Healthcare Providers:https://www.Art[employer].com ide24tidy.[employer]/sites/default/f nito/product/documents/F act_Sheet_HC_Providers_L gno_EVAN-JfC-7.pdf Fact Sheet for Healthcare Patients:https://www.[employer]/sites/default/fi les/product/documents/Fa ct_Sheet_Patients_Lyra_S ARS-CoV-2.pdf Performing Laboratory:[facility] [address] [facility] ([facility])2020-09-04 12:52:00 Test Item Value Reference Range Interpretation Comments SARS-COV2/RT-PCR (test Negative Not Detected, Negative, code = 5795337) See external report for linked test SARS-COV-2 PERFORMING LAB [facility] (test code = 7573478) Negative result for this test determines that [...] 564(g) of the Act.Fact Sheet for Healthcare Providers:https://www.[employer]sites/default/files/product/documents/Fact_Shee g_HP_Rpfnxurzk_Uses_SAWY-JfT-7.pdfFact Sheet for Healthcare Patients:https://www.[employer]sites/default/files/product/ documents/Duqr_Scctw_Dzdrjcnm_Vszr_DMEK-WvU-3.pdfPerforming Laboratory:[address] [address]MYL with platelet count + automated [id number] 06:38:00 Test Item Value Reference Range Interpretation Comments WBC (test code = 6690-2) 11.4 See_Comment H [A utomated message] The system [employer] generated this result transmitted ref erence range: 3.5 - 10 .5 K/L. The refe rence range was not u sed to interpret this result as normal/abnor mal. RBC (test code = 789-8) 4.35 See_Comment [Au tomated message] The system [employer] generated this result transmitted ref erence range: 3.93 - 5 .22 M/L. The refe rence range was not u sed to interpret this result as normal/abnor mal. MCHC (test code = 786-4) 28.0 See_Comment L [A utomated message] The system [employer] generated this result transmitted ref erence range: [...] See_Comment [Aut omated message] 777-3) The system [employer] generated this result transmitted ref erence range: 150 - 45 0 K/CU MM. The referen ce range was not u sed to interpret this result as normal/abnor mal. MPV (test code = 9.0 fL 9.4-12.3 L 52941-2) nRBC (test code = 413) 0 See_Comment [Aut omated message] The system [employer] generated this result transmitted ref erence range: [...] H [Aut omated message] 670) The system [employer] generated this result transmitted ref erence range: 1.56 - 6 .13 K/L. The refe rence range was not u sed to interpret this result as normal/abnor mal. # Lymphs (test code = 2.06 See_Comment [Auto mated message] 414) The system [employer] generated this result transmitted ref erence range: 1.18 - 3 .74 K/L. The refe rence range was not u sed to interpret this result as normal/abnor mal. # Monos (test code = 0.95 See_Comment H [Autom ated message] 415) The system [employer] generated this result transmitted ref erence range: 0.24 - 0 .36 K/L. The refe rence range was not u sed to interpret this result as normal/abnor mal. # Eos (test code = 416) 0.46 See_Comment H [Au tomated message] The system [employer] generated this result transmitted ref erence range: 0.04 - 0 .36 K/L. The refe rence range was not u sed to interpret this result as normal/abnor mal. # Baso (test code = 417) 0.03 See_Comment [A utomated message] The system [employer] generated this result transmitted ref erence range: 0.01 - 0 .08 K/L. The refe rence range was not u sed to interpret this result as normal/abnor mal. Immature 1 % 0-1 Granulocytes-Relative (test code = 2801) Lab Interpretation (test Abnormal code = 47705-4) [facility] with platelet count + automated [id number] 06:38:00 Test Item Value Reference Range Interpretation Comments WBC (test code = 6690-2) 11.4 See_Comment H [A utomated message] The system [employer] generated this result transmitted ref erence range: 3.5 - 10 .5 K/L. The refe rence range was not u sed to interpret this result as normal/abnor mal. RBC (test code = 789-8) 4.35 See_Comment [Au tomated message] The system [employer] generated this result transmitted ref erence range: 3.93 - 5 .22 M/L. The refe rence range was not u sed to interpret this result as normal/abnor mal. MCHC (test code = 786-4) 28.0 See_Comment L [A utomated message] The system [employer] generated this result transmitted ref erence range: [...] code = 350 See_Comment [Aut omated message] 427-3) The system [employer] generated this result transmitted ref erence range: 150 - 45 0 K/CU MM. The referen ce range was not u sed to interpret this result as normal/abnor mal. MPV (test code = 9.0 fL 9.4-12.3 L 22807-2) nRBC (test code = 413) 0 See_Comment [Aut omated message] The system [employer] generated this result transmitted ref erence range: [...] H [Aut omated message] 670) The system [employer] generated this result transmitted ref erence range: 1.56 - 6 .13 K/L. The refe rence range was not u sed to interpret this result as normal/abnor mal. # Lymphs (test code = 2.06 See_Comment [Auto mated message] 414) The system [employer] generated this result transmitted ref erence range: 1.18 - 3 .74 K/L. The refe rence range was not u sed to interpret this result as normal/abnor mal. # Monos (test code = 0.95 See_Comment H [Autom ated message] 415) The system [employer] generated this result transmitted ref erence range: 0.24 - 0 .36 K/L. The refe rence range was not u sed to interpret this result as normal/abnor mal. # Eos (test code = 416) 0.46 See_Comment H [Au tomated message] The system [employer] generated this result transmitted ref erence range: 0.04 - 0 .36 K/L. The refe rence range was not u sed to interpret this result as normal/abnor mal. # Baso (test code = 417) 0.03 See_Comment [A utomated message] The system [employer] generated this result transmitted ref erence range: 0.01 - 0 .08 K/L. The refe rence range was not u sed to interpret this result as normal/abnor mal. Immature 1 % 0-1 Granulocytes-Relative (test code = 2801) Lab Interpretation (test Abnormal code = 15463-5) [facility] with platelet count + automated [id number] 06:38:00 Test Item Value Reference Range Interpretation Comments WBC (test code = 6690-2) 11.4 See_Comment H [A utomated message] The system [employer] generated this result transmitted ref erence range: 3.5 - 10 .5 K/L. The refe rence range was not u sed to interpret this result as normal/abnor mal. RBC (test code = 789-8) 4.35 See_Comment [Au tomated message] The system [employer] generated this result transmitted ref erence range: 3.93 - 5 .22 M/L. The refe rence range was not u sed to interpret this result as normal/abnor mal. MCHC (test code = 786-4) 28.0 See_Comment L [A utomated message] The system [employer] generated this result transmitted ref erence range: [...] See_Comment [Aut omated message] 777-3) The system [employer] generated this result transmitted ref erence range: 150 - 45 0 K/CU MM. The referen ce range was not u sed to interpret this result as normal/abnor mal. MPV (test code = 9.0 fL 9.4-12.3 L 28646-7) nRBC (test code = 413) 0 See_Comment [Aut omated message] The system [employer] generated this result transmitted ref erence range: [...] H [Aut omated message] 670) The system [employer] generated this result transmitted ref erence range: 1.56 - 6 .13 K/L. The refe rence range was not u sed to interpret this result as normal/abnor mal. # Lymphs (test code = 2.06 See_Comment [Auto mated message] 414) The system [employer] generated this result transmitted ref erence range: 1.18 - 3 .74 K/L. The refe rence range was not u sed to interpret this result as normal/abnor mal. # Monos (test code = 0.95 See_Comment H [Autom ated message] 415) The system [employer] generated this result transmitted ref erence range: 0.24 - 0 .36 K/L. The refe rence range was not u sed to interpret this result as normal/abnor mal. # Eos (test code = 416) 0.46 See_Comment H [Au tomated message] The system [employer] generated this result transmitted ref erence range: 0.04 - 0 .36 K/L. The refe rence range was not u sed to interpret this result as normal/abnor mal. # Baso (test code = 417) 0.03 See_Comment [A utomated message] The system [employer] generated this result transmitted ref erence range: 0.01 - 0 .08 K/L. The refe rence range was not u sed to interpret this result as normal/abnor mal. Immature 1 % 0-1 Granulocytes-Relative (test code = 2801) Lab Interpretation (test Abnormal code = 18953-7) [facility] W/PLT COUNT & AUTO [id number] 06:38:00 Test Item Value Reference Range Interpretation [...] PERCENT (BEAKER) (test code = 2801) Prothrombin time/[id number] 05:07:00 Test Item Value Reference Interpretation Comments [...] valves. Lab Interpretation Abnormal (test code = 51347-5) [facility][id number] 05:07:00 Test Item Value Reference Interpretation Comments [...] valves. Lab Interpretation Abnormal (test code = 69065-9) [facility]/[id number] 05:07:00 Test Item Value Reference Interpretation Comments [...] valves. Lab Interpretation Abnormal (test code = 25440-6) [facility] Center[facility]HROM[facility]/[id number] 05:07:00 Test Item Value Reference Range Interpretation Comments PROTIME (BEAKER) 19.2 seconds 11.9-14.2 H (test code = 759) INR (BEAKER) (test 1.64 See_Comment [Automat ed message] code = 370) The system [employer] generated this result transmitted ref erence range: [...] See_Comment H [A utomated message] The system [employer] generated this result transmitted ref erence range: 3.5 - 10 .5 K/L. The refe rence range was not u sed to interpret this result as normal/abnor mal. RBC (test code = 789-8) 4.36 See_Comment [Au tomated message] The system [employer] generated this result transmitted ref erence range: 3.93 - 5 .22 M/L. The refe rence range was not u sed to interpret this result as normal/abnor mal. MCHC (test code = 786-4) 28.6 See_Comment L [A utomated message] The system [employer] generated this result transmitted ref erence range: [...] See_Comment [Aut omated message] 777-3) The system [employer] generated this result transmitted ref erence range: 150 - 45 0 K/CU MM. The referen ce range was not u sed to interpret this result as normal/abnor mal. MPV (test code = 8.9 fL 9.4-12.3 L 29989-2) nRBC (test code = 413) 0 See_Comment [Aut omated message] The system [employer] generated this result transmitted ref erence range: 0 - 0 /1 00 WBC. The refere nce range was not u sed to interpret this result as normal/abnor mal. Lab Interpretation (test Abnormal code = 17471-2) [facility]2020-09-02 04:59:00 Test Item Value Reference Range Interpretation Comments WBC (test code = 6690-2) 10.9 See_Comment H [A utomated message] The system [employer] generated this result transmitted ref erence range: 3.5 - 10 .5 K/L. The refe rence range was not u sed to interpret this result as normal/abnor mal. RBC (test code = 789-8) 4.36 See_Comment [Au tomated message] The system [employer] generated this result transmitted ref erence range: 3.93 - 5 .22 M/L. The refe rence range was not u sed to interpret this result as normal/abnor mal. MCHC (test code = 786-4) 28.6 See_Comment L [A utomated message] The system [employer] generated this result transmitted ref erence range: [...] See_Comment [Aut omated message] 777-3) The system [employer] generated this result transmitted ref erence range: 150 - 45 0 K/CU MM. The referen ce range was not u sed to interpret this result as normal/abnor mal. MPV (test code = 8.9 fL 9.4-12.3 L 77052-8) nRBC (test code = 413) 0 See_Comment [Aut omated message] The system [employer] generated this result transmitted ref erence range: 0 - 0 /1 00 WBC. The refere nce range was not u sed to interpret this result as normal/abnor mal. Lab Interpretation (test Abnormal code = 53486-8) [facility]2020-09-02 04:59:00 Test Item Value Reference Range Interpretation Comments WBC (test code = 6690-2) 10.9 See_Comment H [A utomated message] The system [employer] generated this result transmitted ref erence range: 3.5 - 10 .5 K/L. The refe rence range was not u sed to interpret this result as normal/abnor mal. RBC (test code = 789-8) 4.36 See_Comment [Au tomated message] The system [employer] generated this result transmitted ref erence range: 3.93 - 5 .22 M/L. The refe rence range was not u sed to interpret this result as normal/abnor mal. MCHC (test code = 786-4) 28.6 See_Comment L [A utomated message] The system [employer] generated this result transmitted ref erence range: [...] See_Comment [Aut omated message] 777-3) The system [employer] generated this result transmitted ref erence range: 150 - 45 0 K/CU MM. The referen ce range was not u sed to interpret this result as normal/abnor mal. MPV (test code = 8.9 fL 9.4-12.3 L 80709-2) nRBC (test code = 413) 0 See_Comment [Aut omated message] The system [employer] generated this result transmitted ref erence range: 0 - 0 /1 00 WBC. The refere nce range was not u sed to interpret this result as normal/abnor mal. Lab Interpretation (test Abnormal code = 81534-0) [facility] (HEMOGRAM ONLY)2020-09-02 04:59:00 Test Item [...] (BEAKER) (test code = 413) U/S, CORE [id number] 08:58:00Reason for exam:->BIOPSY LEFT ILIOPSOAS MASS US VS CT [facility]UIDED [facility] 1960 Sex: FFINAL REPORT Procedure: Ultrasound-Guided left iliopsoas/inguinal mass core biopsy Pre/post-procedure diagnosis: Left iliopsoas/inguinal mass Mill Set Up: Abdirahman Chopra MD Assistants: none Sedation: Moderate [...] MDReport Verified Date/Time: 09/01/2020 08:58:59 Reading Location: [facility] Diagnostic Imaging Reading Room [place] [address] 1.310.12 US Core [id number] 08:58:00Interface, External Ris In - 09/01/2020 9:01 AM CDTFINAL REPORT Procedure: Ultrasound-Guided left iliopsoas/inguinal mass core biopsy Pre/post-procedure diagnosis: Left iliopsoas /inguinal mass Mill Set Up: Abdirahman Chopra MD Assistants: none Sedation: Moderate [...] MDReport Verified Date/Time: 09/01/2020 08:58:59 Reading Location: [facility] Diagnostic Imaging Reading Room - [facility] 1.310.12 [facility] 2020-09-01 08:58:00Interface, External Ris In - 09/01/2020 9:01 AM CDTFINAL REPORT Procedure: Ultrasound-Guided left iliopsoas/inguinal mass core biopsy Pre/post-procedure diagnosis: Left iliopsoas /inguinal mass Mill Set Up: Abdirahman Chopra MD Assistants: none Sedation: Moderate [...] MDReport Verified Date/Time: 09/01/2020 08:58:59 Reading Location: [facility] Diagnostic Imaging Reading Room - [facility] 1.310.12 [facility] 2020-09-01 08:58:00Interface, External Ris In - 09/01/2020 9:01 AM CDTFINAL REPORT Procedure: Ultrasound-Guided left iliopsoas/inguinal mass core biopsy Pre/post-procedure diagnosis: Left iliopsoas /inguinal mass Mill Set Up: Abdirahman Chopra MD Assistants: none Sedation: Moderate [...] MDReport Verified Date/Time: 09/01/2020 08:58:59 Reading Location: [facility] Diagnostic Imaging Reading Room - [facility] 1.310.12 [facility]2020-09-01 05:07:00 Test Item [...] 0-0 (BEAKER) (test code = 413) PROTHROMBIN TIME/[id number] 04:44:00 Test Item Value Reference Range Interpretation Comments PROTIME (BEAKER) 19.1 seconds 11.9-14.2 H (test code = 759) INR (BEAKER) (test 1.63 See_Comment [Automat ed message] code = 370) The system [employer] generated this result transmitted ref erence range: <=5.90. The reference range was not used to int erpret this result as normal/abnormal . RECOMMENDED COUMADIN/WARFARIN INR THERAPY RANGESSTANDARD DOSE: 2.0 - 3.0 Includes: PROPHYLAXIS forvenous thrombosis, systemic embolization; TREATMENT for venous thrombosis and/or pulmonary embolus.HIGH RISK: Target INR is 2.5-3.5 for patients with mechanical heart valves.Vitamin B12 and [id number] 06:16:00 Test Item Value Reference Range Interpretation Comments Vitamin B12 (test 327 pg/mL 213-816 code = 2132-9) Folate (test code = 3.70 ng/mL See_Comment L [Automa yumiko 2284-8) message] The system which generated this result transmit yumiko reference range : >=7.00. The reference range was not used to interpret this result as normal/abnormal . JESSICA (test code = JESSICA) Blood Bank Manager ID - BALA Hernandez Lab Interpretation Abnormal (test code = 50336-9) [facility] and [id number] 06:16:00 Test Item Value Reference Range Interpretation Comments Vitamin B12 (test 327 pg/mL 213-816 code = 2132-9) Folate (test code = 3.70 ng/mL See_Comment L [Automa yumiko 2284-8) message] The system which generated this result transmit yumiko reference range : >=7.00. The reference range was not used to interpret this result as normal/abnormal . JESSICA (test code = JESSICA) Blood Bank Manager ID - BALA Hernandez Lab Interpretation Abnormal (test code = 58553-0) [facility] Center[facility]it[facility]12 and [id number] 06:16:00 Test Item Value Reference Range Interpretation Comments Vitamin B12 (test 327 pg/mL 213-816 code = 2132-9) Folate (test code = 3.70 ng/mL See_Comment L [Automa yumiko 2284-8) message] The system which generated this result transmit yumiko reference range : >=7.00. The reference range was not used to interpret this result as normal/abnormal . JESSICA (test code = JESSICA) Blood Bank Manager ID - BALA Hernandez Lab Interpretation Abnormal (test code = 50263-9) [facility] Center[facility]ITAMIN B12 AND [id number] 06:16:00 Test Item Value Reference Range Interpretation Comments VITAMIN B12 (BEAKER) 327 pg/mL 213-816 (test code = 774) FOLATE (BEAKER) 3.70 ng/mL See_Comment L [Automated message] (test code = 362) The system which generated this result transmitted ref erence range: >=7.00. The reference range was not used to interpr et this result as normal/abnormal . Blood Bank Manager ID - BALA MPROTHROMBIN TIME/[id number] 05:36:00 Test Item Value Reference Range Interpretation Comments PROTIME (BEAKER) 21.8 seconds 11.9-14.2 H (test code = 759) INR (BEAKER) (test 1.92 See_Comment [Automat ed message] code = 370) The system [employer] generated this result transmitted ref erence range: [...] 0-0 (BEAKER) (test code = 413) CT, [id number] 11:32:00Unlisted Reason for Exam - Click Yes and Enter Reason Below->NoWill this procedure require oral contrast?->No [facility] 1960 [...] size and patent. Right lower extremity: The [employer] REP, DFA, SFA, and popliteal arteries are patent. Trifurcation vessels are patent. Left lower extremity: The [employer] REP, DFA, SFA, and popliteal arteries are patent. [...] MDReport Verified Date/Time: 08/30/2020 11:32:07 Reading Location: [place] [address] [address], CTA AAA, W/ BELLA.EXT.RUNOFF 2020-08-30 11:32:00LLE DVT, assess prior pelvic mass, please assess venous phaseAnesthesia:->None [facility] : 1960 [...] size and patent. Right lower extremity: The [employer] REP, DFA, SFA, and popliteal arteries are patent. Trifurcation vessels are patent. Left lower extremity: The [employer] REP, DFA, SFA, and popliteal arteries are patent. [...] MDReport Verified Date/Time: 08/30/2020 11:32:07 Reading Location: [facility] B1 P048 Angio Body Reading Room CT [...] size and patent. Right lower extremity: The [employer] REP, DFA, SFA, and popliteal arteries are patent. Trifurcation vessels are patent. Left lower extremity: The [employer] REP, DFA, SFA, and popliteal arteries are patent. [...] MDReport Verified Date/Time: 08/30/2020 11:32:07 Reading Location: [facility] P048 Angio Body Reading Room [facility] and [id number] 11:32:00Interface, External Ris In - 08/30/2020 11:34 [...] size and patent. Right lower extremity: The [employer] REP, DFA, SFA, and popliteal arteries are patent. Trifurcation vessels are patent. Left lower extremity: The [employer] REP, DFA, SFA, and popliteal arteries are patent. [...] MDReport Verified Date/Time: 08/30/2020 11:32:07 Reading Location: [place] [address] Angio Body Reading Room [facility] CenterCT [facility]/pelvis with IV [id number] 11:32:00Interface, External Ris In - 08/30/2020 11:34 [...] size and patent. Right lower extremity: The [employer] REP, DFA, SFA, and popliteal arteries are patent. Trifurcation vessels are patent. Left lower extremity: The [employer] REP, DFA, SFA, and popliteal arteries are patent. [...] MDReport Verified Date/Time: 08/30/2020 11:32:07 Reading Location: [place] [address] Angio Body Reading Room [facility] CenterCT[facility] AAA and [id number] 11:32:00Interface, External Ris In - 08/30/2020 11:34 [...] size and patent. Right lower extremity: The [employer] REP, DFA, SFA, and popliteal arteries are patent. Trifurcation vessels are patent. Left lower extremity: The [employer] REP, DFA, SFA, and popliteal arteries are patent. [...] MDReport Verified Date/Time: 08/30/2020 11:32:07 Reading Location: [place] [address] Angio Body Reading Room [facility]/pelvis with IV [id number] 11:32:00Interface, External Ris In - 08/30/2020 11:34 [...] size and patent. Right lower extremity: The [employer] REP, DFA, SFA, and popliteal arteries are patent. Trifurcation vessels are patent. Left lower extremity: The [employer] REP, DFA, SFA, and popliteal arteries are patent. [...] MDReport Verified Date/Time: 08/30/2020 11:32:07 Reading Location: [facility] B1 P048 Angio Body Reading Room [facility] CenterCT[facility] AAA and [id number] 11:32:00Interface, External Ris In - 08/30/2020 11:34 [...] size and patent. Right lower extremity: The [employer] REP, DFA, SFA, and popliteal arteries are patent. Trifurcation vessels are patent. Left lower extremity: The [employer] REP, DFA, SFA, and popliteal arteries are patent. [...] Bull Verified Date/Time: 08/30/2020 11:32:07 Reading Location: [facility] B1 P048 Angio Body Reading Room [facility] CenterArterial doppler leg, [id number] 09:31:54Ejection [facility] ECHO HEARTLAB MKCKESSON CPACS Left Impression1. The [...] + + + + + + !Mid LOAN EXPEDITOR ! !59.4 ! ! ! + + +-- + + + !Dist LOAN EXPEDITOR ! !61.6 ! ! ! + + [...] Study 08/29/2020 NEELAM Age 60 Visit Number [id number] Gender Female Accession Number [id number] Date of 1960 Referring Tricai Hernandez Room Number 2546 Physician Richard Petroleum Geologist Stacy Benitez MD RVT Physician ProcedureType of [...] + + + + + + !Mid LOAN EXPEDITOR ! !59.4 ! ! ! + + + + + + !Dist LOAN EXPEDITOR ! !61.6 ! ! ! + + + ---------+ + + !Prox JANETTE ! !64.3 ! ! ! + + + +---- + + !Mid JANETTE ! !80.3 ! ! ! + + + + + + !Dist JANETTE ! !67.1 ! ! ! + + + + + +[facility] [id number] 09:31:54Ejection [facility] ECHO HEARTLAB MKCKESSON [facility] Left Impression1. The common femoral, profunda fe [...] + + + + + + !Mid LOAN EXPEDITOR ! !59.4 ! ! ! + + +-- + + + !Dist LOAN EXPEDITOR ! !61.6 ! ! ! + + [...] Study 08/29/2020 NEELAM Age 60 Visit Number [id number] Gender Female Accession Number [id number] Date of 1960 Referring Tricia Hernandez Room Number 2546 Physician Richard Petroleum Geologist Stacy Benitez MD T Physician ProcedureType of [...] + + + + + + !Mid LOAN EXPEDITOR ! !59.4 ! ! ! + + + + + + !Dist LOAN EXPEDITOR ! !61.6 ! ! ! + + + ---------+ + + !Prox JANETTE ! !64.3 ! ! ! + + + +---- + + !Mid JANETTE ! !80.3 ! ! ! + + + + + + !Dist JANETTE ! !67.1 ! ! ! + + + + + +[facility] HospitalAr[facility] doppler leg, [id number] 09:31:54Ejection [facility] ECHO HEARTLAB [facility] Left Impression1. The common femoral, profunda fe [...] + + + + + + !Mid LOAN EXPEDITOR ! !59.4 ! ! ! + + +-- + + + !Dist LOAN EXPEDITOR ! !61.6 ! ! ! + + [...] Study 08/29/2020 NEELAM Age 60 Visit Number [id number] Gender Female Accession Number [id number] Date of 1960 Referring Tricia Hernandez Room Number 2546 Physician Richard Petroleum Geologist Stacy Proctor Interpreting Vivek Benitez MD T [...] + + + + + + !Mid LOAN EXPEDITOR ! !59.4 ! ! ! + + + + + + !Dist LOAN EXPEDITOR ! !61.6 ! ! ! + + + ---------+ + + !Prox JANETTE ! !64.3 ! ! ! + + + +---- + + !Mid JANETTE ! !80.3 ! ! ! + + + + + + !Dist JANETTE ! !67.1 ! ! ! + + + + + +[facility] [id number] 06:17:00 Test Item Value Reference Range Interpretation [...] mL/min/1.73 [place] [address]-0) NOT ACCURATE CREATININE CLEARANCE IN PREDICTING GLOMERULAR FILTRATION RATE . ESTIMATED GFR I S NOT APPLICABLE FOR DIALYSIS PATIEN TS. JESSICA (test code = Blood Bank Manager ID - BS JESSICA) [facility] and [id number] 06:17:00 Test Item Value Reference Range Interpretation [...] mL/min/1.73 [place] [address]-3) NOT ACCURATE CREATININE CLEARANCE IN PREDICTING GLOMERULAR FILTRATION RATE . ESTIMATED GFR I S NOT APPLICABLE FOR DIALYSIS PATIEN TS. JESSICA (test code = Blood Bank Manager ID - BS JESSICA) [facility] Center[facility] and [id number] 06:17:00 Test Item Value Reference Range Interpretation [...] mL/min/1.73 [place] [address]-5) NOT ACCURATE CREATININE CLEARANCE IN PREDICTING GLOMERULAR FILTRATION RATE . ESTIMATED GFR I S NOT APPLICABLE FOR DIALYSIS PATIEN TS. JESSICA (test code = Blood Bank Manager ID - BS JESSICA) [facility] Center[facility] AND CREATININE [id number] 06:17:00 Test Item Value Reference Range Interpretation Comments BLOOD UREA NITROGEN 13 mg/dL 7- (BEAKER) (test code = 354) CREATININE (BEAKER) 0.72 mg/dL 0.57-1.25 (test code = 358) BUN/CREAT RATIO 18 For a normal (BEAKER) (test code individu al on a = 1209643092) normal diet, t he reference inter jewel for the mass ra nabil ranges between 12:1 and 20:1 (BUN i n mg/dL/creatinin e in mg/dL) EGFR (BEAKER) (test 100 mL/min/1.73 ESTIM ATED GFR IS code = 1092) sq m NOT ACCURATE CREATININE CLEARANCE IN PREDICTING GLOMERULAR FILTRATION RATE . ESTIMATED GFR I S NOT APPLICABLE FOR DIALYSIS PATIEN TS. Blood Bank Manager ID - BSCBC (HEMOGRAM ONLY)2020-08-30 05:50:00 Test [...] 0-0 (BEAKER) (test code = 413) PROTHROMBIN TIME/[id number] 05:48:00 Test Item Value Reference Range Interpretation Comments PROTIME (BEAKER) 21.5 seconds 11.9-14.2 H (test code = 759) INR (BEAKER) (test 1.89 See_Comment [Automat ed message] code = 370) The system [employer] generated this result transmitted ref erence range: [...] 1.0-2.0 units/mL once daily enoxaparin Ref: CHEST 2012;141:f08u-j03d Lab Interpretation (test Normal code = 88352-8) [facility] CenterHeparin Assay - Low Molecular [id number] 14:07:00 Test Item Value Reference Range Interpretation Comments Anti 10A-Lovenox (test 0.85 u/ml 0.6-2 code = 1605) JESSICA (test code = JESSICA) Anti-Factor 10-A Level (Heparin Assay for Low Molecular Weight Heparin)Monitoring Guidelines: Blood samples should be obtained 4 hours post subcutaneous injection (time of Peak level) Therapeutic Peak Levels: 0.6-1.0 units/mL twice daily enoxaparin 1.0-2.0 units/mL once daily enoxaparin Ref: CHEST 2012;141:s97k-i19e Lab Interpretation (test Normal code = 04290-2) [facility] CenterHeparin Assay - Low Molecular [id number] 14:07:00 Test Item Value Reference Range Interpretation Comments Anti 10A-Lovenox (test 0.85 u/ml 0.6-2 code = 1605) JESSICA (test code = JESSICA) Anti-Factor 10-A Level (Heparin Assay for Low Molecular Weight Heparin)Monitoring Guidelines: Blood samples should be obtained 4 hours post subcutaneous injection (time of Peak level) Therapeutic Peak Levels: 0.6-1.0 units/mL twice daily enoxaparin 1.0-2.0 units/mL once daily enoxaparin Ref: CHEST 2012;141:a80p-i67p Lab Interpretation (test Normal code = 99442-8) [facility] CenterHEPARIN ASSAY - LOW MOLECULAR [id number] 14:07:00 Test Item Value Reference Range Interpretation Comments LOVENOX-ANTI 10A (BEAKER) (test 0.85 u/ml 0.60-2.00 code = 1605) Anti-Factor 10-A Level (Heparin Assay for Low Molecular Weight Heparin)Monitoring Guidelines: Blood samples should be obtained 4 hours post subcutaneous injection (time of Peak level) Therapeutic Peak Levels: 0.6-1.0 units/mL twice daily enoxaparin 1.0-2.0 units/mL once daily enoxaparinRef: CHEST 2012;141:[id number] (HEMOGRAM ONLY)2020-08-29 13:22:00 Test Item Value Reference [...] 0-0 (BEAKER) (test code = 413) PROTHROMBIN TIME/[id number] 05:41:00 Test Item Value Reference Range Interpretation Comments PROTIME (BEAKER) 17.4 seconds 11.9-14.2 H (test code = 759) INR (BEAKER) (test 1.45 See_Comment [Automat ed message] code = 370) The system [employer] generated this result transmitted ref erence range: <=5.90. The reference range was not used to int erpret this result as normal/abnormal . RECOMMENDED COUMADIN/WARFARIN INR THERAPY RANGESSTANDARD DOSE: 2.0 - 3.0 Includes: PROPHYLAXIS forvenous thrombosis, systemic embolization; TREATMENT for venous thrombosis and/or pulmonary embolus.HIGH RISK: Target INR is 2.5-3.5 for patients with mechanical heart valves.BUN AND CREATININE [id number] 17:04:00 Test Item Value Reference Range Interpretation Comments BLOOD UREA NITROGEN 9 mg/dL 7-21 (BEAKER) (test code = 354) CREATININE (BEAKER) 0.79 mg/dL 0.57-1.25 (test code = 358) BUN/CREAT RATIO 11 For a normal (BEAKER) (test code individu al on a = 7868959822) normal diet, t he reference inter jewel for the mass ra nabil ranges between 12:1 and 20:1 (BUN i n mg/dL/creatinin e in mg/dL) EGFR (BEAKER) (test 90 mL/min/1.73 ESTIMA YUMIKO GFR IS code = 1092) sq m NOT ACCURATE CREATININE CLEARANCE IN PREDICTING GLOMERULAR FILTRATION RATE . ESTIMATED GFR I S NOT APPLICABLE FOR DIALYSIS PATIEN TS. Blood Bank Manager ID - DBVenous doppler leg, [id number] 15:52:54Ejection FractionSLEH ECHO HEARTLAB MKCKESSON CPACS Left [...] Study 08/28/2020 NEELAM Age 60 Visit Number [id number] Gender Female Accession Number [id number] Date of 1960 Referring Tricai Room Number 6926 Physician Elizabethdc Petroleum Geologist Jarad Mayberry Interpreting Vivek Benitez MD RVT [...] in cm/s ; Diameters are measured in [facility] Venous doppler leg, [id number] 15:52:54Ejection FractionSLEH ECHO HEARTLAB MKCKESSON CPACS Left [...] Study 08/28/2020 NEELAM Age 60 Visit Number [id number] Gender Female Accession Number [id number] Date of 1960 Referring Tricia M Room Number 5566 Physician Richard Petroleum Geologist Jarad Mayberry Interpreting Vivek Benitez MD RVT [...] in cm/s ; Diameters are measured in [facility] Venous doppler leg, [id number] 15:52:54Ejection FractionSLEH ECHO HEARTLAB MKCKESSON CPACS Left [...] Study 08/28/2020 NEELAM Age 60 Visit Number [id number] Gender Female Accession Number [id number] Date of 1960 Referring Tricia Room Number 5541 Physician Richard Petroleum Geologist Jarad Mayberry Interpreting Vivek Benitez MD RVT [...] in cm/s ; Di[facility]OV[facility] ([facility])2020-08-28 12:32:00 Test Item Value Reference Range Interpretation Comments SARS-COV2/RT-PCR (test Negative Not Detected, Negative, code = 4252292) See external report for linked test SARS-COV-2 PERFORMING LAB [facility] (test code = 5298989) Negative result for this test determines that [...] 564(g) of the Act.Fact Sheet for Healthcare Providers:https://www.[employer]sites/default/files/product/documents/Fact_Shee m_WS_Vigvkyacc_Yjyq_XUXQ-ZsX-2.pdfFact Sheet for Healthcare Patients:https://www.[employer]sites/default/files/product/ documents/Qisp_Lhzec_Xiygmrpp_Nifg_IUIP-TsY-8.pdfPerforming Laboratory:[facility], [place] [address]DHTEWTTNJGB TIME/INR 2020-08-28 05:15:00 Test Item Value Reference Range Interpretation Comments PROTIME (BEAKER) 16.1 seconds 11.9-14.2 H (test code = 759) INR (BEAKER) (test 1.31 See_Comment [Automat ed message] code = 370) The system [employer] generated this result transmitted ref erence range: [...] 0-0 (BEAKER) (test code = 413) PROTHROMBIN TIME/[id number] 16:24:00 Test Item Value Reference Range Interpretation Comments PROTIME (BEAKER) 14.7 seconds 11.9-14.2 H (test code = 759) INR (BEAKER) (test 1.20 See_Comment [Automat ed message] code = 370) The system [employer] generated this result transmitted ref erence range: [...] 0-0 (BEAKER) (test code = 413) PROTHROMBIN TIME/[id number] 14:53:00 Test Item Value Reference Range Interpretation Comments PROTIME (BEAKER) 10.1 seconds 9.8-12.0 (test code = 759) INR (BEAKER) (test 0.94 See_Comment [Automat ed message] code = 370) The system [employer] generated this result transmitted ref erence range: [...] 0-0 (BEAKER) (test code = 413) PROTHROMBIN TIME/[id number] 19:23:00 Test Item Value Reference Range Interpretation Comments PROTIME (BEAKER) 15.0 seconds 11.9-14.2 H (test code = 759) INR (BEAKER) (test 1.20 See_Comment [Automat ed message] code = 370) The system [employer] generated this result transmitted ref erence range: [...] 0-1 PERCENT (BEAKER) (test code = 2801) [id number] 07:38:00 Test Item Value Reference Range Interpretation Comments PTT (test code = 62.8 See_Comment H [Automated message] 44310-2) The system [employer] generated this result transmitted ref erence range: 22.5 - 3 6.0 seconds. The reference range was not used to int erpret this result as normal/abnormal . Lab Interpretation (test Abnormal code = 16232-9) [facility]eraPTT20[facility] 07:38:00 Test Item Value Reference Range Interpretation Comments PTT (test code = 62.8 See_Comment H [Automated message] 76170-8) The system [employer] generated this result transmitted ref erence range: 22.5 - 3 6.0 seconds. The reference range was not used to int erpret this result as normal/abnormal . Lab Interpretation (test Abnormal code = 62013-6) [facility]eraPTT[facility] 07:38:00 Test Item Value Reference Range Interpretation Comments PTT (test code = 62.8 See_Comment H [Automated message] 91266-4) The system [employer] generated this result transmitted ref erence range: 22.5 - 3 6.0 seconds. The reference range was not used to int erpret this result as normal/abnormal . Lab Interpretation (test Abnormal code = 45826-3) [facility] CenterAPTT2021-[facility] 07:38:00 Test Item Value Reference [...] WBC 0-0 (BEAKER) (test code = 413) [id number] 23:09:00 Test Item Value Reference Range Interpretation Comments PARTIAL THROMBOPLASTIN TIME 48.3 seconds 22.5-36.0 H (BEAKER) (test code = 760) [id number] 12:59:00 Test Item Value Reference Range Interpretation Comments PARTIAL THROMBOPLASTIN TIME 33.5 seconds 22.5-36.0 (BEAKER) (test code = 760) Basic Metabolic [id number] 06:56:00 Test Item Value Reference Range Interpretation Comments Sodium (test code = 140 meq/L 774-500 6521-2) Potassium (test 4.4 meq/L 3.5-5.1 code = 2823-3) Chloride (test code 100 meq/L 98-107 = 2075-0) CO2 (test code = 27 meq/L 22-29 8-9) BUN (test code = 13 mg/dL 7- 3094-0) Creatinine (test 0.81 mg/dL 0.57-1.25 code = 2160-0) Glucose (test code 101 mg/dL 70-105 = 2345-7) Calcium (test code 9.7 mg/dL 8.4-10.2 = 94307-0) EGFR (test code = 87 mL/min/1.[place] [address]-7) NOT ACCURATE CREATININE CLEARANCE IN PREDICTING GLOMERULAR FILTRATION RATE . ESTIMATED GFR I S NOT APPLICABLE FOR DIALYSIS PATIEN JESSICA (test code = Blood Bank Manager ID - JESSICA) [facility] Metabolic [id number] 06:56:00 Test Item Value Reference Range Interpretation Comments Sodium (test code = 140 meq/L 303-751 4369-2) Potassium (test 4.4 meq/L 3.5-5.1 code = 2823-3) Chloride (test code 100 meq/L 98-107 = 2075-0) CO2 (test code = 27 meq/L 2027-11) BUN (test code = 13 mg/dL 10-04 3094-0) Creatinine (test 0.81 mg/dL 0.57-1.25 code = 2160-0) Glucose (test code 101 mg/dL 70-105 = 2345-7) Calcium (test code 9.7 mg/dL 8.4-10.2 = 64287-9) EGFR (test code = 87 mL/min/1.[place] [address]-3) NOT ACCURATE CREATININE CLEARANCE IN PREDICTING GLOMERULAR FILTRATION RATE . ESTIMATED GFR I S NOT APPLICABLE FOR DIALYSIS PATIEN JESSICA (test code = Blood Bank Manager ID - JESSICA) [facility] Metabolic [id number] 06:56:00 Test Item Value Reference Range Interpretation Comments Sodium (test code = 140 meq/L 358-367 4270-2) Potassium (test 4.4 meq/L 3.5-5.1 code = 2823-3) Chloride (test code 100 meq/L 98-107 = 2075-0) CO2 (test code = 27 meq/L 2027-) BUN (test code = 13 mg/dL 10-04 3094-0) Creatinine (test 0.81 mg/dL 0.57-1.25 code = 2160-0) Glucose (test code 101 mg/dL 70-105 = 2345-7) Calcium (test code 9.7 mg/dL 8.4-10.2 = 35092-4) EGFR (test code = 87 mL/min/1.[place] [address]-7) NOT ACCURATE CREATININE CLEARANCE IN PREDICTING GLOMERULAR FILTRATION RATE . ESTIMATED GFR I S NOT APPLICABLE FOR DIALYSIS PATIEN TS. JESSICA (test code = Blood Bank Manager ID - JESSICA) BALA Hernandez HOMAR [facility] METABOLIC [id number] 06:56:00 Test Item Value Reference Range Interpretation [...] S NOT APPLICABLE FOR DIALYSIS PATIEN TS. Blood Bank Manager ID - BALA MCBC (HEMOGRAM ONLY)2020-08-24 06:41:00 [...] WBC 0-0 (BEAKER) (test code = 413) [id number] 06:32:00 Test Item Value Reference Range Interpretation Comments PARTIAL THROMBOPLASTIN TIME 34.7 seconds 22.5-36.0 (BEAKER) (test code = 760) [id number] 22:03:00 Test Item Value Reference Range Interpretation Comments PARTIAL THROMBOPLASTIN TIME 36.0 seconds 22.5-36.0 (BEAKER) (test code = 760) [id number] 14:36:00 Test Item Value Reference Range Interpretation [...] (BEAKER) (test code = 413) BASIC METABOLIC [id number] 05:47:00 Test Item Value Reference Range Interpretation [...] S NOT APPLICABLE FOR DIALYSIS PATIEN TS. Blood Bank Manager ID - BAL WC (HEMOGRAM ONLY)2020-08-23 05:19:00 [...] = 413) U/S, EXTREMITY, LOWER, LEFT (NON-VASCULAR) [id number] 15:15:00Please obtain biopsy of inguinal mass. Pending discharge Reason for exam:->Large left inguinal mass / lymphadenopathy [facility] 1960 [...] MDReport Verified Date/Time: 08/22/2020 15:15:14 Reading Location: [facility] C013 Consult Reading Room US extremity non-vascular limited [id number] 15:15:00 Interface, External Ris In - 08/22/2020 [...] MDReport Verified Date/Time: 08/22/2020 15:15:14 Reading Location: [facility] B1 C013W Consult Reading Room Electronically signed by: RICK GARCIA MDon 08/22/2020 03:15 [facility] [id number] 15:15:00Interface, External Ris In - 08/22/2020 3:17 [...] Garcia Verified Date/Time: 08/22/2020 15:15:14 Reading Location: [address] Consult Reading Room Electronically signed by: Cassandra QUIJANO 08/22/2020 03:15 [facility] non- vascular limited [id number] 15:15:00Interface, External Ris In - 08/22/2020 3:17 [...] Garcia Verified Date/Time: 08/22/2020 15:15:14 Reading Location: [address] Consult Reading Room Electronically signed by: Cassandra QUIJANO 08/22/2020 03:15 [facility] [id number] 06:22:00 Test Item Value Reference Range Interpretation [...] S NOT APPLICABLE FOR DIALYSIS PATIEN TS. Blood Bank Manager ID - BALA [facility] (HEMOGRAM ONLY)2020-08-22 05:57:00 Test Item Value Reference [...] (BEAKER) (test code = 413) COMPREHENSIVE METABOLIC [id number] 07:02:00 Test Item Value Reference Range Interpretation [...] S NOT APPLICABLE FOR DIALYSIS PATIEN TS. Blood Bank Manager ID - BALA MPROTHROMBIN TIME/[id number] 06:42:00 Test Item Value Reference Range Interpretation Comments PROTIME (BEAKER) 13.7 seconds 11.9-14.2 (test code = 759) INR (BEAKER) (test 1.08 See_Comment [Automat ed message] code = 370) The system [employer] generated this result transmitted ref erence range: [...] 413) RAD, SPINE, LUMBAR, 2 OR 3 [id number] 20:22:00Reason for exam:->low back pain, fallHOMAR [facility] 1960 [...] LEFT 2020-08-20 20:22:00Reason for exam:->knee pain, fall [facility] 1960 [...] 2-3 VIEWS, LEFT, TO INCL PELVIS WHEN [id number] 20:22:00Reason for exam:->hip pain, fall [facility] : 1960 [...] Date/Time: 08/20/2020 20:22:11 XR hip 2 views [id number] 20:22:00Interface, External Ris In - 08/20/2020 8:24 [...] Prateek Fung MDReport Verified Date/Time: 08/20/2020 20:22:11 [facility] [id number] 20:22:00Interface, External Ris In - 08/20/2020 8:24 [...] Prateek Fung MDRcarylort Verified Date/Time: 08/20/2020 20:22:11 [facility] 2 views left 2020-08-20 20:22:00Interface, External [...] Prateek Fung MDReport Verified Date/Time: 08/20/2020 20:22:11 [facility] spine lumbar 2 or 3 [id number] 20:22:00Interface, External Ris In - 08/20/2020 8:24 [...] Prateek Fung MDReport Verified Date/Time: 08/20/2020 20:22:11 [facility] spine lumbar 2 or 3 [id number] 20:22:00Interface, External Ris In - 08/20/2020 8:24 [...] Prateek Fung MDReport Verified Date/Time: 08/20/2020 20:22:11 [facility] spine lumbar 2 or 3 [id number] 20:22:00Interface, External Ris In - 08/20/2020 8:24 [...] Prateek Fung MDReport Verified Date/Time: 08/20/2020 20:22:11 [facility] knee 3 views left 2020-08-20 20:22:00Interface, External [...] Prateek Fung MDReport Verified Date/Time: 08/20/2020 20:22:11 [facility] knee 3 views [id number] 20:22:00Interface, External Ris In - 08/20/2020 8:24 [...] Prateek Fung MDReport Verified Date/Time: 08/20/2020 20:22:11 [facility] knee 3 views left 2020-08-20 20:22:00Interface, External [...] Prateek Fung MDReport Verified Date/Time: 08/20/2020 20:22:11 [facility]joLactate dehydrogenase (LDH)2020-08-20 15:47:00 Test Item Value Reference Range Interpretation Comments LDH (test code = 2532-0) 228 U/L 125-220 H JESSICA (test code = JESSICA) Blood Bank Manager ID - DB Lab Interpretation (test Abnormal code = 56026-3) [facility] CenterMagnesium20[facility] 15:47:00 Test Item Value Reference Range Interpretation Comments Magnesium (test code = 2.2 mg/dL 1.6-2.6 83052-2) JESSICA (test code = JESSICA) Blood Bank Manager ID - DB Lab Interpretation (test Normal code = 96522-2) [facility] CenterPhosphorus2021-06-06 15:47:00 Test Item Value Reference Range Interpretation Comments Phosphorus (test code = 3.1 mg/dL 2.3-4.7 2777-1) JESSICA (test code = JESSICA) Blood Bank Manager ID - DB Lab Interpretation (test Normal code = 64177-6) [facility] CenterUric [id number] 15:47:00 Test Item Value Reference Range Interpretation Comments Uric Acid (test code = 5.1 mg/dL 2.6-7.2 3084-1) JESSICA (test code = JESSICA) Blood Bank Manager ID - DB Lab Interpretation (test Normal code = 88970-7) [facility] CenterLactate dehydrogenase (LDH)2020-08-20 15:47:00 Test Item Value Reference Range Interpretation Comments LDH (test code = 2532-0) 228 U/L 125-220 H JESSICA (test code = JESSICA) Blood Bank Manager ID - DB Lab Interpretation (test Abnormal code = 98610-2) [facility] CenterMagnesium2021-06-06 15:47:00 Test Item Value Reference Range Interpretation Comments Magnesium (test code = 2.2 mg/dL 1.6-2.6 92851-0) JESSICA (test code = JESSICA) Blood Bank Manager ID - DB Lab Interpretation (test Normal code = 36786-8) [facility] CenterPhosphorus2021-06-06 15:47:00 Test Item Value Reference Range Interpretation Comments Phosphorus (test code = 3.1 mg/dL 2.3-4.7 2777-1) JESSICA (test code = JESSICA) Blood Bank Manager ID - DB Lab Interpretation (test Normal code = 17695-0) [facility] CenterUric [id number] 15:47:00 Test Item Value Reference Range Interpretation Comments Uric Acid (test code = 5.1 mg/dL 2.6-7.2 3084-1) JESSICA (test code = JESSICA) Blood Bank Manager ID - DB Lab Interpretation (test Normal code = 31701-8) [facility] CenterLactate dehydrogenase (LDH)2020-08-20 15:47:00 Test Item Value Reference Range Interpretation Comments LDH (test code = 2532-0) 228 U/L 125-220 H JESSICA (test code = JESSICA) Blood Bank Manager ID - DB Lab Interpretation (test Abnormal code = 32638-7) [facility] CenterMagnesium2021-06-06 15:47:00 Test Item Value Reference Range Interpretation Comments Magnesium (test code = 2.2 mg/dL 1.6-2.6 77571-3) JESSICA (test code = JESSICA) Blood Bank Manager ID - DB Lab Interpretation (test Normal code = 90509-9) [facility] CenterPhosphorus2021-[facility] 15:47:00 Test Item Value Reference Range Interpretation Comments Phosphorus (test code = 3.1 mg/dL 2.3-4.7 2777-1) JESSICA (test code = JESSICA) Blood Bank Manager ID - DB Lab Interpretation (test Normal code = 70342-5) [facility] CenterUric [id number] 15:47:00 Test Item Value Reference Range Interpretation Comments Uric Acid (test code = 5.1 mg/dL 2.6-7.2 3084-1) JESSICA (test code = JESSICA) Blood Bank Manager ID - DB Lab Interpretation (test Normal code = 29495-2) [facility] CenterCOMPREHENSIVE METABOLIC [id number] 15:47:00 Test Item Value Reference Range Interpretation [...] S NOT APPLICABLE FOR DIALYSIS PATIEN TS. Blood Bank Manager ID - [id number] 15:47:00 Test Item Value Reference Range Interpretation Comments MAGNESIUM (BEAKER) (test code = 2.2 mg/dL 1.6-2.6 627) Blood Bank Manager ID - XZORVDYNVNCG4412-18-14 15:47:00 Test Item Value Reference Range Interpretation Comments PHOSPHORUS (BEAKER) (test code = 3.1 mg/dL 2.3-4.7 604) Blood Bank Manager ID - DBURIC [id number] 15:47:00 Test Item Value Reference Range Interpretation Comments URIC ACID (BEAKER) (test code = 5.1 mg/dL 2.6-7.2 773) Blood Bank Manager ID - DBLACTATE DEHYDROGENASE (LDH)2020-08-20 15:47:00 Test Item Value Reference Range Interpretation Comments LACTATE DEHYDROGENASE (BEAKER) (test 228 U/L 125-220 H code = 635) Blood Bank Manager ID - DBCBC W/PLT COUNT & AUTO [id number] 15:26:00 Test Item Value Reference Range Interpretation [...] (test code = 2801) AFB CULTURE + [id number] 17:40:00 Test Item Value Reference Range Interpretation Comments CULTURE (BEAKER) (test No acid-fast bacilli code = 1095) isolated in 42 days AFB SMEAR (BEAKER) No acid fast bacilli (test code = 994) seen AFB CULTURE + [id number] 16:47:00 Test Item Value Reference Range Interpretation Comments CULTURE (BEAKER) (test No acid-fast bacilli code = 1095) isolated in 42 days AFB SMEAR (BEAKER) No acid fast bacilli (test code = 994) seen FUNGUS CULTURE + [id number] 17:06:00 Test Item Value Reference Range Interpretation Comments CULTURE (BEAKER) (test No fungus isolated in code = 1095) 28 days FUNGUS SMEAR (BEAKER) No fungi seen (test code = 1406) FUNGUS CULTURE + [id number] 20:59:00 Test Item Value Reference Range Interpretation Comments CULTURE (BEAKER) (test No fungus isolated in code = 1095) 28 days FUNGUS SMEAR (BEAKER) No fungi seen (test code = 1406) POCT-GLUCOSE [id number] 17:00:00 Test Item Value Reference Range Interpretation Comments POC-GLUCOSE METER 193 mg/dL 70-110 H TESTED AT [facility] [address] (BEAKER) (test code [employer] [facility] = [address]) [place] [address] POCT-GLUCOSE [id number] 11:50:00 Test Item Value Reference Range Interpretation Comments POC-GLUCOSE METER 185 mg/dL 70-110 H TESTED AT [facility] [address] (BEAKER) (test code [employer] [facility] = 1538) [place] [address] CBC W/PLT COUNT & AUTO [id number] 09:22:00 Test Item Value Reference Range Interpretation [...] (BEAKER) (test code = 2801) BASIC METABOLIC [id number] 09:21:00 Test Item Value Reference Range Interpretation [...] NOT APPLICABLE FOR DIALYSIS PATIEN TS. C-REACTIVE [id number] 09:21:00 Test Item Value Reference Range Interpretation Comments C-REACTIVE PROTEIN (BEAKER) (test 2.31 mg/dL 0.00-0.50 H code = 676) HEPATIC FUNCTION [id number] 09:20:00 Test Item Value Reference Range Interpretation [...] code = 47 U/L 6-50 347) POCT-GLUCOSE [id number] 06:53:00 Test Item Value Reference Range Interpretation Comments POC-GLUCOSE METER 102 mg/dL 70-110 TESTED AT [facility] [address] ([facility]) (test code [facility] = 1538) [place] [address] POCT-GLUCOSE [id number] 21:32:00 Test Item Value Reference Range Interpretation Comments POC-GLUCOSE METER 212 mg/dL 70-110 H TESTED AT [facility] [address] ([facility]) (test code [facility] = 1538) [place] [address] POCT-GLUCOSE [id number] 16:26:00 Test Item Value Reference Range Interpretation Comments POC-GLUCOSE METER 170 mg/dL 70-110 H TESTED AT [facility] [address] ([facility]) (test code [facility] = 1538) [place] [address] POCT-GLUCOSE [id number] 05:53:00 Test Item Value Reference Range Interpretation Comments POC-GLUCOSE METER 90 mg/dL 70-110 TESTED AT [facility] [address] ([facility]) (test code = [facility] 1538) [place] [address] POCT-GLUCOSE [id number] 21:52:00 Test Item Value Reference Range Interpretation Comments POC-GLUCOSE METER 130 mg/dL 70-110 H TESTED AT [facility] [address] ([facility]) (test code [facility] = 1538) [place] [address] POCT-GLUCOSE [id number] 17:16:00 Test Item Value Reference Range Interpretation Comments POC-GLUCOSE METER 177 mg/dL 70-110 H TESTED AT [facility] [address] ([facility]) (test code [facility] = 1538) [place] [address] [id number] 16:02:00 Test Item Value Reference Range Interpretation Comments [employer] ([facility]) (test code = 3.9 meq/L 3.5-5.5 379) POCT-GLUCOSE [id number] 12:10:00 Test Item Value Reference Range Interpretation Comments POC-GLUCOSE METER 176 mg/dL 70-110 H TESTED AT [facility] [address] ([facility]) (test code [facility] = 1538) [place] [address] POCT-GLUCOSE [id number] 05:57:00 Test Item Value Reference Range Interpretation Comments POC-GLUCOSE METER 113 mg/dL 70-110 H TESTED AT [facility] [address] (BEAKER) (test code [facility] = 1538) [place] [address] POCT-GLUCOSE [id number] 21:53:00 Test Item Value Reference Range Interpretation Comments POC-GLUCOSE METER 160 mg/dL 70-110 H TESTED AT [facility] [address] (BEAKER) (test code [facility] = 1538) [place] [address] POCT-GLUCOSE [id number] 16:49:00 Test Item Value Reference Range Interpretation Comments POC-GLUCOSE METER 158 mg/dL 70-110 H TESTED AT [facility] [address] (BEAKER) (test code [facility] = 1538) [place] [address] POCT-GLUCOSE [id number] 12:14:00 Test Item Value Reference Range Interpretation Comments POC-GLUCOSE METER 162 mg/dL 70-110 H TESTED AT [facility] [address] (BEAKER) (test code [facility] = 1538) [place] [address] BASIC METABOLIC [id number] 04:57:00 Test Item Value Reference Range Interpretation [...] PATIEN TS. CBC W/PLT COUNT & AUTO [id number] 04:28:00 Test Item Value Reference Range Interpretation [...] BASOPHILS ABSOLUTE 0.01 K/ L 0.00-0.20 [facility] (test code = 417) IMMATURE 1 % 0-0 H GRANULOCYTES-RELATIVE PERCENT ([facility] (test code = 2801) POCT-GLUCOSE [id number] 20:44:00 Test Item Value Reference Range Interpretation Comments POC-GLUCOSE METER 168 mg/dL 70-110 H TESTED AT [facility] [address] ([facility] (test code [facility] = 1538) [place] [address] POCT-GLUCOSE [id number] 16:10:00 Test Item Value Reference Range Interpretation Comments POC-GLUCOSE METER 228 mg/dL 70-110 H TESTED AT [facility] [address] ([facility]) (test code [facility] = 1538) [place] [address] POCT-GLUCOSE [id number] 13:15:00 Test Item Value Reference Range Interpretation Comments POC-GLUCOSE METER 182 mg/dL 70-110 H TESTED AT [facility] [address] ([facility]) (test code [facility] = 1538) [place] [address] POCT-GLUCOSE [id number] 06:57:00 Test Item Value Reference Range Interpretation Comments POC-GLUCOSE METER 153 mg/dL 70-110 H TESTED AT [facility] [address] ([facility]) (test code [facility] = 1538) [place] [address] POCT-GLUCOSE [id number] 21:27:00 Test Item Value Reference Range Interpretation Comments POC-GLUCOSE METER 146 mg/dL 70-110 H TESTED AT [facility] [address] ([facility]) (test code [facility] = 1538) [place] [address] POCT-GLUCOSE [id number] 17:17:00 Test Item Value Reference Range Interpretation Comments POC-GLUCOSE METER 134 mg/dL 70-110 H TESTED AT [facility] [address] ([facility] (test code [employer] [facility] = 1538) [place] [address] POCT-GLUCOSE [id number] 13:49:00 Test Item Value Reference Range Interpretation Comments POC-GLUCOSE METER 177 mg/dL 70-110 H TESTED AT [facility] [address] ([facility] (test code [facility] = 1538) [place] [address] POCT-GLUCOSE [id number] 05:34:00 Test Item Value Reference Range Interpretation Comments POC-GLUCOSE METER 118 mg/dL 70-110 H TESTED AT [facility] [address] ([facility] (test code [facility] = 1538) [place] [address] POCT-GLUCOSE [id number] 21:14:00 Test Item Value Reference Range Interpretation Comments POC-GLUCOSE METER 149 mg/dL 70-110 H TESTED AT [facility] [address] ([facility] (test code [facility] = 1538) [place] [address] POCT-GLUCOSE [id number] 17:44:00 Test Item Value Reference Range Interpretation Comments POC-GLUCOSE METER 132 mg/dL 70-110 H TESTED AT [facility] [address] ([facility] (test code [facility] = 1538) [place] [address] POCT-GLUCOSE [id number] 12:21:00 Test Item Value Reference Range Interpretation Comments POC-GLUCOSE METER 168 mg/dL 70-110 H TESTED AT [facility] [address] ([facility] (test code [facility] = 1538) [place] [address] [id number] 05:19:00 Test Item Value Reference Range Interpretation Comments PARTIAL THROMBOPLASTIN TIME 84.3 seconds 23.2-36.1 H ([facility] (test code = 760) POCT-GLUCOSE [id number] 20:50:00 Test Item Value Reference Range Interpretation Comments POC-GLUCOSE METER 147 mg/dL 70-110 H TESTED AT [facility] [address] ([facility] (test code [facility] = 1538) [place] [address] POCT-GLUCOSE [id number] 17:19:00 Test Item Value Reference Range Interpretation Comments POC-GLUCOSE METER 238 mg/dL 70-110 H TESTED AT [facility] [address] ([facility] (test code [facility] = 1538) [place] [address] [id number] 15:09:00 Test Item Value Reference Range Interpretation Comments PARTIAL THROMBOPLASTIN TIME 74.8 seconds 23.2-36.1 H (BEAKER) (test code = 760) POCT-GLUCOSE [id number] 11:57:00 Test Item Value Reference Range Interpretation Comments POC-GLUCOSE METER 146 mg/dL 70-110 H TESTED AT [facility] [address] (BEAKER) (test code [facility] = 1538) [place] [address] POCT-GLUCOSE [id number] 05:37:00 Test Item Value Reference Range Interpretation Comments POC-GLUCOSE METER 139 mg/dL 70-110 H TESTED AT [facility] [address] (BEAKER) (test code [facility] = 1538) [place] [address] BASIC METABOLIC [id number] 04:04:00 Test Item Value Reference Range Interpretation [...] S NOT APPLICABLE FOR DIALYSIS PATIEN TS. [id number] 04:02:00 Test Item Value Reference Range Interpretation Comments PARTIAL THROMBOPLASTIN TIME 76.5 seconds 23.2-36.1 H (BEAKER) (test code = 760) CBC W/PLT COUNT & AUTO [id number] 03:41:00 Test Item Value Reference Range Interpretation [...] PERCENT (BEAKER) (test code = 2801) POCT-GLUCOSE [id number] 22:12:00 Test Item Value Reference Range Interpretation Comments POC-GLUCOSE METER 247 mg/dL 70-110 H TESTED AT [facility] [address] (BEAKER) (test code [facility] = 1538) [place] [address] [id number] 21:11:00 Test Item Value Reference Range Interpretation Comments PARTIAL THROMBOPLASTIN TIME 62.4 seconds 23.2-36.1 H (BEAKER) (test code = 760) [id number] 12:45:00 Test Item Value Reference Range Interpretation Comments PARTIAL THROMBOPLASTIN TIME 101.2 seconds 23.2-36.1 H (BEAKER) (test code = 760) POCT-GLUCOSE [id number] 11:48:00 Test Item Value Reference Range Interpretation Comments POC-GLUCOSE METER 259 mg/dL 70-[address] [place] [address] [address] (BEAKER) (test code [facility] = 1538) [place] [address] POCT-GLUCOSE [id number] 05:38:00 Test Item Value Reference Range Interpretation Comments POC-GLUCOSE METER 121 mg/dL 70-110 H TESTED AT [facility] [address] (BEAKER) (test code [facility] = 1538) [place] [address] [id number] 05:33:00 Test Item Value Reference Range Interpretation Comments PARTIAL THROMBOPLASTIN TIME 108.5 seconds 23.2-36.1 H (BEAKER) (test code = 760) POCT-GLUCOSE [id number] 20:59:00 Test Item Value Reference Range Interpretation Comments POC-GLUCOSE METER 197 mg/dL 70-[address] [place] [address] [address] (BEAKER) (test code [facility] = 1538) [place] [address] POCT-GLUCOSE [id number] 16:47:00 Test Item Value Reference Range Interpretation Comments POC-GLUCOSE METER 150 mg/dL 70-110 H [facility] [address] (BEAKER) (test code [facility] = 1538) [place] [address] [id number] 15:21:00 Test Item Value Reference Range Interpretation Comments PARTIAL THROMBOPLASTIN TIME 79.9 seconds 23.2-36.1 H (BEAKER) (test code = 760) POCT-GLUCOSE [id number] 12:52:00 Test Item Value Reference Range Interpretation Comments POC-GLUCOSE METER 207 mg/dL 70-[address] [place] [address] [address] (BEAKER) (test code [facility] = 1538) [place] [address] [id number] 09:17:00 Test Item Value Reference Range Interpretation Comments PARTIAL THROMBOPLASTIN TIME 95.7 seconds 23.2-36.1 H (BEAKER) (test code = 760) BASIC METABOLIC [id number] 02:36:00 Test Item Value Reference Range Interpretation [...] S NOT APPLICABLE FOR DIALYSIS PATIEN TS. [id number] 02:26:00 Test Item Value Reference Range Interpretation Comments PARTIAL THROMBOPLASTIN TIME 104.6 seconds 23.2-36.1 H (BEAKER) (test code = 760) CBC W/PLT COUNT & AUTO [id number] 02:18:00 Test Item Value Reference Range Interpretation [...] PERCENT (BEAKER) (test code = 2801) POCT-GLUCOSE [id number] 22:17:00 Test Item Value Reference Range Interpretation Comments POC-GLUCOSE METER 211 mg/dL 70-110 H TESTED AT [facility] [address] (BEAKER) (test code [facility] = 1538) [place] [address] [id number] 20:16:00 Test Item Value Reference Range Interpretation Comments PARTIAL THROMBOPLASTIN TIME 107.2 seconds 23.2-36.1 H (BEAKER) (test code = 760) POCT-GLUCOSE [id number] 16:24:00 Test Item Value Reference Range Interpretation Comments POC-GLUCOSE METER 167 mg/dL 70-110 H TESTED AT [facility] [address] (BEAKER) (test code [facility] = 1538) [place] [address] [id number] 14:17:00 Test Item Value Reference Range Interpretation Comments PARTIAL THROMBOPLASTIN TIME 96.3 seconds 23.2-36.1 H (BEAKER) (test code = 760) POCT-GLUCOSE [id number] 11:40:00 Test Item Value Reference Range Interpretation Comments POC-GLUCOSE METER 190 mg/dL 70-110 H TESTED AT [facility] [address] (BEAKER) (test code [facility] = 1538) [place] [address] [id number] 07:52:00 Test Item Value Reference Range Interpretation Comments PARTIAL THROMBOPLASTIN TIME 58.0 seconds 23.2-36.1 H (BEAKER) (test code = 760) BASIC METABOLIC [id number] 06:09:00 Test Item Value Reference Range Interpretation [...] S NOT APPLICABLE FOR DIALYSIS PATIEN TS. [id number] 05:53:00 Test Item Value Reference Range Interpretation Comments PARTIAL THROMBOPLASTIN TIME 138.1 seconds 23.2-36.1 H (BEAKER) (test code = 760) CBC W/PLT COUNT & AUTO [id number] 05:45:00 Test Item Value Reference Range Interpretation [...] GRANULOCYTES-RELATIVE PERCENT (BEAKER) (test code = 2801) [id number] 23:56:00 Test Item Value Reference Range Interpretation Comments PARTIAL THROMBOPLASTIN TIME 96.6 seconds 23.2-36.1 H (BEAKER) (test code = 760) POCT-GLUCOSE [id number] 21:22:00 Test Item Value Reference Range Interpretation Comments POC-GLUCOSE METER 160 mg/dL 70-110 H TESTED AT [facility] [address] (BEAKER) (test code [facility] = 1538) [place] [address] POCT-GLUCOSE [id number] 17:27:00 Test Item Value Reference Range Interpretation Comments POC-GLUCOSE METER 151 mg/dL 70-110 H TESTED AT [facility] [address] (BEAKER) (test code [facility] = 1538) [place] [address] [id number] 16:40:00 Test Item Value Reference Range Interpretation Comments PARTIAL THROMBOPLASTIN TIME 40.0 seconds 23.2-36.1 H (BEAKER) (test code = 760) POCT-GLUCOSE [id number] 13:43:00 Test Item Value Reference Range Interpretation Comments POC-GLUCOSE METER 164 mg/dL 70-110 H TESTED AT [facility] [address] (BEAKER) (test code [facility] = 1538) [place] [address] [id number] 13:34:00 Test Item Value Reference Range Interpretation Comments PARTIAL THROMBOPLASTIN TIME 141.6 seconds 23.2-36.1 H (BEAKER) (test code = 760) OCCULT BLOOD, [id number] 13:20:00 Test Item Value Reference Range Interpretation Comments FECAL OCCULT BLOOD (BEAKER) (test Negative Negative code = 618) BASIC METABOLIC [id number] 12:13:00 Test Item Value Reference Range Interpretation [...] APPLICABLE FOR DIALYSIS PATIEN TS. HEPATIC FUNCTION [id number] 12:13:00 Test Item Value Reference Range Interpretation [...] 6-50 347) CBC W/PLT COUNT & AUTO [id number] 11:47:00 Test Item Value Reference Range Interpretation [...] GRANULOCYTES-RELATIVE PERCENT (BEAKER) (test code = 2801) [id number] 06:33:00 Test Item Value Reference Range Interpretation Comments PARTIAL THROMBOPLASTIN TIME 102.3 seconds 23.2-36.1 H (BEAKER) (test code = 760) POCT-GLUCOSE [id number] 05:47:00 Test Item Value Reference Range Interpretation Comments POC-GLUCOSE METER 151 mg/dL 70-110 H TESTED AT [facility] [address] (BEAKER) (test code [facility] = 1538) [place] [address] BASIC METABOLIC [id number] 01:16:00 Test Item Value Reference Range Interpretation [...] S NOT APPLICABLE FOR DIALYSIS PATIEN TS. [id number] 01:06:00 Test Item Value Reference Range Interpretation Comments PARTIAL THROMBOPLASTIN TIME 46.8 seconds 23.2-36.1 H (BEAKER) (test code = 760) [id number] 23:18:00 Test Item Value Reference Range Interpretation Comments PARTIAL THROMBOPLASTIN TIME 177.9 seconds 23.2-36.1 HH (BEAKER) (test code = 760) POCT-GLUCOSE [id number] 22:05:00 Test Item Value Reference Range Interpretation Comments POC-GLUCOSE METER 204 mg/dL 70-110 H TESTED AT [facility] [address] (BEAKER) (test code [facility] = 1538) [place] [address] [id number] 16:35:00 Test Item Value Reference Range Interpretation Comments PARTIAL THROMBOPLASTIN TIME 47.9 seconds 23.2-36.1 H (BEAKER) (test code = 760) POCT-GLUCOSE [id number] 16:33:00 Test Item Value Reference Range Interpretation Comments POC-GLUCOSE METER 167 mg/dL 70-110 H TESTED AT [facility] [address] (BEAKER) (test code [facility] = 1538) [place] [address] [id number] 15:11:00 Test Item Value Reference Range Interpretation Comments PARTIAL THROMBOPLASTIN TIME 198.7 seconds 23.2-36.1 HH (BEAKER) (test code = 760) POCT-GLUCOSE [id number] 12:08:00 Test Item Value Reference Range Interpretation Comments POC-GLUCOSE METER 166 mg/dL 70-110 H TESTED AT [facility] [address] (BEAKER) (test code [facility] = 1538) [place] [address] [id number] 07:27:00 Test Item Value Reference Range Interpretation Comments PARTIAL THROMBOPLASTIN TIME 65.6 seconds 23.2-36.1 H (BEAKER) (test code = 760) [id number] 05:59:00 Test Item Value Reference Range Interpretation Comments PARTIAL THROMBOPLASTIN TIME 156.1 seconds 23.2-36.1 HH (BEAKER) (test code = 760) BASIC METABOLIC [id number] 05:54:00 Test Item Value Reference Range Interpretation [...] NOT APPLICABLE FOR DIALYSIS PATIEN TS. POCT-GLUCOSE [id number] 05:45:00 Test Item Value Reference Range Interpretation Comments POC-GLUCOSE METER 145 mg/dL 70-110 H TESTED AT [facility] [address] (BEAKER) (test code [facility] = 1538) [place] [address] CBC W/PLT COUNT & AUTO [id number] 05:36:00 Test Item Value Reference Range Interpretation [...] PERCENT (BEAKER) (test code = 2801) POCT-GLUCOSE [id number] 20:29:00 Test Item Value Reference Range Interpretation Comments POC-GLUCOSE METER 128 mg/dL 70-110 H TESTED AT [facility] [address] ([facility]) (test code [facility] = 1538) [place] [address] POCT-GLUCOSE [id number] 16:58:00 Test Item Value Reference Range Interpretation Comments POC-GLUCOSE METER 160 mg/dL 70-110 H TESTED AT [facility] [address] ([facility]) (test code [facility] = 1538) [place] [address] POCT-GLUCOSE [id number] 11:58:00 Test Item Value Reference Range Interpretation Comments POC-GLUCOSE METER 163 mg/dL 70-110 H TESTED AT [facility] [address] ([facility]) (test code [facility] = 1538) [place] [address] [id number] 05:25:00 Test Item Value Reference Range Interpretation Comments PARTIAL THROMBOPLASTIN TIME 79.6 seconds 23.2-36.1 H (BEAKER) (test code = 760) CBC W/PLT COUNT & AUTO [id number] 05:18:00 Test Item Value Reference Range Interpretation [...] GRANULOCYTES-RELATIVE PERCENT (BEAKER) (test code = 2801) [id number] 21:47:00 Test Item Value Reference Range Interpretation Comments PARTIAL THROMBOPLASTIN TIME 85.4 seconds 23.2-36.1 H (BEAKER) (test code = 760) POCT-GLUCOSE [id number] 16:24:00 Test Item Value Reference Range Interpretation Comments POC-GLUCOSE METER 189 mg/dL 70-110 H TESTED AT [facility] [address] ([facility]) (test code [facility] = 1538) [place] [address] [id number] 13:02:00 Test Item Value Reference Range Interpretation Comments PARTIAL THROMBOPLASTIN TIME 51.8 seconds 23.2-36.1 H (BEAKER) (test code = 760) POCT-GLUCOSE [id number] 11:41:00 Test Item Value Reference Range Interpretation Comments POC-GLUCOSE METER 169 mg/dL 70-110 H TESTED AT [facility] [address] ([facility]) (test code [facility] = 1538) [place] [address] VITAMIN D, [id number] 08:15:00 Test Item Value Reference Range Interpretation Comments VITAMIN D 25-OH (AKER) (test code 5.4 ng/mL 6.6-49.9 L = 2764) Effective 12/25/2016: Reference Range ChangeNew: 6.6-49.9 ng/mL Previous: 13.0-47.8 ng/mLRecommended Vitamin D Target Range: 30.0-40.0 ng/mLPOCT-GLUCOSE [id number] 06:20:00 Test Item Value Reference Range Interpretation Comments POC-GLUCOSE METER 158 mg/dL 70-110 H TESTED AT [facility] [address] ([facility]) (test code [facility] = 1538) [place] [address] HEPATIC FUNCTION [id number] 05:45:00 Test Item Value Reference Range Interpretation [...] Specimen markedly (test code = 347) hemolyzed [id number] 05:30:00 Test Item Value Reference Range Interpretation Comments PARTIAL THROMBOPLASTIN TIME 63.3 seconds 23.2-36.1 H (BEAKER) (test code = 760) Prior to initiating heparinCBC W/PLT COUNT & AUTO [id number] 05:23:00 Test Item Value Reference Range Interpretation [...] GRANULOCYTES-RELATIVE PERCENT (BEAKER) (test code = 2801) [id number] 00:59:00 Test Item Value Reference Range Interpretation Comments PARTIAL THROMBOPLASTIN TIME 62.3 seconds 23.2-36.1 H (BEAKER) (test code = 760) POCT-GLUCOSE [id number] 21:34:00 Test Item Value Reference Range Interpretation Comments POC-GLUCOSE METER 196 mg/dL 70-110 H TESTED AT [facility] [address] (BEAKER) (test code [facility] = 1538) [place] [address] [id number] 18:14:00 Test Item Value Reference Range Interpretation Comments PARTIAL THROMBOPLASTIN TIME 82.3 seconds 23.2-36.1 H (BEAKER) (test code = 760) POCT-GLUCOSE [id number] 17:01:00 Test Item Value Reference Range Interpretation Comments POC-GLUCOSE METER 192 mg/dL 70-110 H TESTED AT [facility] [address] (BEAKER) (test code [facility] = 1538) [place] [address] POCT-GLUCOSE [id number] 13:29:00 Test Item Value Reference Range Interpretation Comments POC-GLUCOSE METER 207 mg/dL 70-110 H TESTED AT [facility] [address] (BEAKER) (test code [facility] = 1538) [place] [address] [id number] 12:48:00 Test Item Value Reference Range Interpretation Comments PARTIAL THROMBOPLASTIN TIME 63.3 seconds 23.2-36.1 H (BEAKER) (test code = 760) CBC W/PLT COUNT & AUTO [id number] 12:25:00 Test Item Value Reference Range Interpretation [...] PERCENT (BEAKER) (test code = 2801) POCT-GLUCOSE [id number] 06:40:00 Test Item Value Reference Range Interpretation Comments POC-GLUCOSE METER 166 mg/dL 70-110 H TESTED AT [facility] [address] ([facility]) (test code [facility] = 1538) [place] [address] BUN AND [id number] 06:07:00 Test Item Value Reference Range Interpretation [...] 12 noon Amikacin Blood level draw. Thank [id number] 05:48:00 Test Item Value Reference Range Interpretation Comments PARTIAL THROMBOPLASTIN TIME 60.0 seconds 23.2-36.1 H (BEAKER) (test code = 760) ANTI-NUCLEAR ANTIBODY (TAMMI)2017-11-20 00:24:00 Test Item Value Reference Range Interpretation Comments ANTI-NUCLEAR ANTIBODY (TAMMI) (BEAKER) Negative Negative (test code = 418) Test performed by IFA method.Test performed by IFA method.[id number] 23:01:00 Test Item Value Reference Range Interpretation Comments PARTIAL THROMBOPLASTIN TIME 58.3 seconds 23.2-36.1 H (BEAKER) (test code = 760) POCT-GLUCOSE [id number] 21:22:00 Test Item Value Reference Range Interpretation Comments POC-GLUCOSE METER 171 mg/dL 70-110 H TESTED AT [facility] [address] [facility] (test code [facility] = 1538) [place] [address] POCT-GLUCOSE [id number] 16:54:00 Test Item Value Reference Range Interpretation Comments POC-GLUCOSE METER 135 mg/dL 70-110 H TESTED AT [facility] [address] [address] (BEAKER) (test code [facility] = 1538) [place] [address] PERIPHERAL BLOOD SMEAR - PATHOLOGIST [id number] 15:35:00 Test Item Value Reference Range Interpretation Comments PERIPHERAL SMR REVIEW Neutrophilic (BEAKER) (test code = leukocytosis with 2640) increased band forms and unremarkable WBC morphology. Normocytic anemia with unremarkable RBCs. Platelets unremarkable. No dysmorphic or blast forms seen. [id number] Nazario Becker M.D. (BEAKER) (test code = [...] (BEAKER) (test code = 1+ few 480) [id number] 15:21:00 Test Item Value Reference Range Interpretation Comments PARTIAL THROMBOPLASTIN TIME 39.3 seconds 23.2-36.1 H (BEAKER) (test code = 760) POCT-GLUCOSE [id number] 13:08:00 Test Item Value Reference Range Interpretation Comments POC-GLUCOSE METER 140 mg/dL 70-110 H TESTED AT [facility] [address] (BEAKER) (test code [facility] = 1538) [place] [address] CBC W/PLT COUNT & AUTO [id number] 09:33:00 Test Item Value Reference Range Interpretation [...] (BEAKER) (test code = 413) BUN AND [id number] 08:45:00 Test Item Value Reference Range Interpretation [...] 12 noon Amikacin Blood level draw. Thank [id number] 08:27:00 Test Item Value Reference Range Interpretation Comments PARTIAL THROMBOPLASTIN TIME 29.5 seconds 23.2-36.1 (BEAKER) (test code = 760) POCT-GLUCOSE [id number] 04:48:00 Test Item Value Reference Range Interpretation Comments POC-GLUCOSE METER 142 mg/dL 70-110 H TESTED AT [facility] [address] ([facility]) (test code [facility] = 1538) [place] [address] RHEUMATOID FACTOR AB, REFLEX TO [id number] 01:10:00 Test Item Value Reference Range Interpretation Comments RHEUMATOID FACTOR (BEAKER) (test Negative code = 573) [id number] 00:56:00 Test Item Value Reference Range Interpretation Comments PROTIME (BEAKER) (test code = 17.9 seconds 11.8-14.4 H 759) INR ([facility]) (test code = 370) 1.4 1.2-1.5 PARTIAL THROMBOPLASTIN TIME 48.9 seconds 23.2-36.1 H (AKER) (test code = 760) RECOMMENDED COUMADIN/WARFARIN INR THERAPY RANGESSTANDARD DOSE: 2.0 - 3.0 Includes: PROPHYLAXIS forvenous thrombosis, systemic embolization; TREATMENT for venous thrombosis and/or pulmonary embolus.HIGH RISK: Target INR is 2.5-3.5 for patients with mechanical heart valves.VENOUS DOPPLER LEGS, [id number] 22:05:00Reason for exam:->leukocytosis persistentFINAL REPORT CLINICAL HISTORY: [...] MDReport Verified Date/Time: 11/18/2017 22:05:25 Reading Location: [address] Reading Room POCT-GLUCOSE [id number] 20:56:00 Test Item Value Reference Range Interpretation Comments POC-GLUCOSE METER 111 mg/dL 70-110 H TESTED AT [facility] [address] ([facility]) (test code [facility] = 1538) [place] [address] AMIKACIN LEVEL, [id number] 17:26:00 Test Item Value Reference Range Interpretation Comments AMIKACIN, TROUGH ([facility]) (test 10.3 ug/mL 4.0-8.0 HH code = 1830) Therapeutic Range (ug/mL)Peak: 25.0-35.0Trough: 4.0-8.0 Toxic: >35.0VENOUS DOPPLER ARMS, [id number] 16:59:00Reason for exam:->swelling right handAddendum BeginsREPORT STATUS:A Addendum:A left-sided PICC is visualized. End of addendum. Signed: Dangelo Proctor MDReport Verified Date/Time: 11/18/2017 16:59:45 Reading Location: [facility] Radiology Reading RoomAddendum EndsFINAL REPORT Bilateral upper [...] MDReport Verified Date/Time: 11/18/2017 15:36:41 Reading Location: [facility] Reading Room POCT-GLUCOSE [id number] 16:58:00 Test Item Value Reference Range Interpretation Comments POC-GLUCOSE METER 100 mg/dL 70-110 TESTED AT [facility] [address] ([facility]) (test code [facility] = 1538) [place] [address] POCT-GLUCOSE [id number] 11:30:00 Test Item Value Reference Range Interpretation Comments POC-GLUCOSE METER 119 mg/dL 70-110 H TESTED AT [facility] [address] ([facility]) (test code [facility] = 1538) [place] [address] HEPATITIS B SURFACE [id number] 11:18:00 Test Item Value Reference Range Interpretation Comments HEPATITIS B SURFACE ANTIBODY 436.5 mIU/mL <8.0 H ([facility]) (test code = 647) HEPATITIS C [id number] 11:18:00 Test Item Value Reference Range Interpretation Comments HEPATITIS C ANTIBODY ([facility]) Nonreactive Nonreactive (test code = 367) AMIKACIN LEVEL, [id number] 11:03:00 Test Item Value Reference Range Interpretation Comments AMIKACIN, PEAK (BEAKER) (test code 26.0 ug/mL 25.0-35.0 = 1831) Therapeutic Range (ug/mL)Peak: 25.0-35.0Trough: 4.0-8.0 Toxic: >35.0 SURGICALLY OBTAINED CULTURE + GRAM [id number] 08:25:00 Test Item Value Reference Interpretation Comments Range CULTURE ([facility]) COAGULASE NEGATIVE A From Broth [...] No organisms seen (BEAKER) (test code = 737975) ANAEROBIC [id number] 07:53:00 Test Item Value Reference Range Interpretation Comments CULTURE (BEAKER) (test No anaerobes isolated code = 1095) GRAM STAIN RESULT 1+ WBCs (BEAKER) (test code = 1123) GRAM STAIN RESULT No organisms seen (BEAKER) (test code = 24144) POCT-GLUCOSE [id number] 06:37:00 Test Item Value Reference Range Interpretation Comments POC-GLUCOSE METER 135 mg/dL 70-110 H TESTED AT [facility] [address] [facility] (test code [facility] = 1538) [place] [address] HIV-1 ANTIGEN WITH HIV-1/2 [id number] 05:51:00 Test Item Value Reference Range Interpretation Comments HIV-1 ANTIGEN WITH HIV 1\\T\\2 Nonreactive Nonreactive ANTIBODY (2) (BEAKER) (test code = 2586) HEPATITIS B SURFACE [id number] 05:46:00 Test Item Value Reference Range Interpretation Comments HEPATITIS B SURFACE ANTIGEN (2) Nonreactive Nonreactive (BEAKER) (test code = 2585) CBC W/PLT COUNT & AUTO [id number] 05:11:00 Test Item Value Reference Range Interpretation [...] code = 2801) Smear reviewed. Results confirmed.POCT-GLUCOSE [id number] 23:01:00 Test Item Value Reference Range Interpretation Comments POC-GLUCOSE METER 111 mg/dL 70-110 H TESTED AT [facility] [address] (BEAKER) (test code [facility] = 1538) [place] [address] POCT-GLUCOSE [id number] 17:15:00 Test Item Value Reference Range Interpretation Comments POC-GLUCOSE METER 100 mg/dL 70-110 TESTED AT [facility] [address] (BEAKER) (test code [facility] = 1538) [place] [address] C-REACTIVE [id number] 14:34:00 Test Item Value Reference Range Interpretation Comments C-REACTIVE PROTEIN (BEAKER) (test 35.06 mg/dL 0.00-0.50 H code = 676) POCT-GLUCOSE [id number] 12:50:00 Test Item Value Reference Range Interpretation Comments POC-GLUCOSE METER 221 mg/dL 70-110 H TESTED AT [facility] [address] (BEAKER) (test code [facility] = 1538) [place] [address] CBC W/PLT COUNT & AUTO [id number] 10:56:00 Test Item Value Reference Range Interpretation [...] PERCENT (BEAKER) (test code = 2801) POCT-GLUCOSE [id number] 10:03:00 Test Item Value Reference Range Interpretation Comments POC-GLUCOSE METER 104 mg/dL 70-110 TESTED AT [facility] [address] (BEAKER) (test code [facility] = 1538) [place] [address] BASIC METABOLIC [id number] 04:51:00 Test Item Value Reference Range Interpretation [...] NOT APPLICABLE FOR DIALYSIS PATIEN TS. POCT-GLUCOSE [id number] 20:41:00 Test Item Value Reference Range Interpretation Comments POC-GLUCOSE METER 127 mg/dL 70-110 H TESTED AT [facility] [address] ([facility]) (test code [facility] = 1538) [place] [address] POCT-GLUCOSE [id number] 17:03:00 Test Item Value Reference Range Interpretation Comments POC-GLUCOSE METER 145 mg/dL 70-110 H TESTED AT [facility] [address] ([facility]) (test code [facility] = 1538) [place] [address] [id number] 12:39:00 Test Item Value Reference Range Interpretation Comments PROCALCITONIN ([facility]) (test code 1.27 ng/mL <0.05 H = 3036) SEPSIS RISK (ng/mL)Low: 0.05-0.50Intermediate: 0.51-2.00High: >=2.01POCT-GLUCOSE [id number] 11:58:00 Test Item Value Reference Range Interpretation Comments POC-GLUCOSE METER 120 mg/dL 70-110 H TESTED AT [facility] [address] ([facility]) (test code [facility] = 1538) [place] [address] CBC W/PLT COUNT & AUTO [id number] 09:50:00 Test Item Value Reference Range Interpretation Comments WHITE BLOOD CELL COUNT 34.2 K/ L 4.0-10.0 H Smear reviewed. ([facility]) (test code = Result s [...] PERCENT (BEAKER) (test code = 2801) POCT-GLUCOSE [id number] 06:32:00 Test Item Value Reference Range Interpretation Comments POC-GLUCOSE METER 124 mg/dL 70-110 H TESTED AT [facility] [address] (BEAKER) (test code [facility] = 1538) [place] [address] BASIC METABOLIC [id number] 06:27:00 Test Item Value Reference Range Interpretation [...] APPLICABLE FOR DIALYSIS PATIEN TS. BUN AND [id number] 06:26:00 Test Item Value Reference Range Interpretation [...] APPLICABLE FOR DIALYSIS PATIEN TS. HEMOGLOBIN AND [id number] 06:03:00 Test Item Value Reference Range Interpretation Comments HEMOGLOBIN (BEAKER) (test code = 8.6 GM/DL 12.0-15.5 L 410) HEMATOCRIT (BEAKER) (test code = 25.9 % 36.0-46.0 L 411) CT, CHEST, WITHOUT [id number] 22:51:00FINAL REPORT CLINICAL HISTORY: Leukocytosis FINDINGS: Multiple [...] MDReport Verified Date/Time: 11/15/2017 22:51:35 Reading Location: [address] [place], [id number] 22:51:00FINAL REPORT CLINICAL HISTORY: Leukocytosis FINDINGS: Multiple [...] MDReport Verified Date/Time: 11/15/2017 22:51:35 Reading Location: [address] Reading Room POCT-GLUCOSE [id number] 21:14:00 Test Item Value Reference Range Interpretation Comments POC-GLUCOSE METER 128 mg/dL 70-110 H TESTED AT [address] ([facility]) (test code [facility] = 1538) [place] [address] POCT-GLUCOSE [id number] 17:10:00 Test Item Value Reference Range Interpretation Comments POC-GLUCOSE METER 109 mg/dL 70-110 TESTED AT [address] ([facility]) (test code [facility] = 1538) [place] [address] POCT-GLUCOSE [id number] 12:15:00 Test Item Value Reference Range Interpretation Comments POC-GLUCOSE METER 116 mg/dL 70-110 H TESTED AT [address] ([facility]) (test code [facility] = 1538) [place] [address] SPIN/CONCENTRATION [id number] 10:39:00 Test Item Value Reference Range Interpretation Comments CONCENTRATION CHARGED ([facility]) (test Done code = 2657) CBC W/PLT COUNT & AUTO [id number] 09:22:00 Test Item Value Reference Range Interpretation Comments WHITE BLOOD CELL COUNT 34.3 K/ L 4.0-10.0 H Smear reviewed. ([facility]) (test code = Result s [...] (test code = 2801) TYPE AND SCREEN, [id number] 08:18:00 Test Item Value Reference Range Interpretation Comments ABO/RH AUTOMATED (BEAKER) (test B POSITIVE code = 2260) AB SCREEN (BEAKER) (test code = NEGATIVE 923) ANAEROBIC [id number] 07:55:00 Test Item Value Reference Range Interpretation Comments CULTURE (BEAKER) (test No anaerobes isolated code = 1095) BASIC METABOLIC [id number] 05:40:00 Test Item Value Reference Range Interpretation [...] APPLICABLE FOR DIALYSIS PATIEN TS. BUN AND [id number] 05:37:00 Test Item Value Reference Range Interpretation [...] APPLICABLE FOR DIALYSIS PATIEN TS. VANCOMYCIN LEVEL, [id number] 05:36:00 Test Item Value Reference Range Interpretation Comments VANCOMYCIN TROUGH (BEAKER) (test 17.5 ug/mL 10.0-20.0 code = 522) HEMOGLOBIN AND [id number] 05:23:00 Test Item Value Reference Range Interpretation Comments HEMOGLOBIN (BEAKER) (test code = 6.4 GM/DL 12.0-15.5 L 410) HEMATOCRIT (BEAKER) (test code = 19.3 % 36.0-46.0 LL 411) POCT-GLUCOSE [id number] 16:12:00 Test Item Value Reference Range Interpretation Comments POC-GLUCOSE METER 129 mg/dL 70-110 H TESTED AT [facility] [address] (BEAKER) (test code [facility] = 1538) [place] [address] POCT-GLUCOSE [id number] 12:07:00 Test Item Value Reference Range Interpretation Comments POC-GLUCOSE METER 114 mg/dL 70-110 H TESTED AT [facility] [address] (BEAKER) (test code [facility] = 1538) [place] [address] POCT-GLUCOSE [id number] 10:00:00 Test Item Value Reference Range Interpretation Comments POC-GLUCOSE METER 97 mg/dL 70-110 TESTED AT [facility] [address] (BEAKER) (test code = [facility] 1538) [place] [address] SURGICALLY OBTAINED CULTURE + GRAM [id number] 09:36:00 Test Item Value Reference Range Interpretation Comments CULTURE (BEAKER) (test code No growth = 1095) GRAM STAIN RESULT (BEAKER) <1+ WBCs (test code = 1123) GRAM STAIN RESULT (BEAKER) No organisms seen (test code = 14245) POCT-GLUCOSE [id number] 06:06:00 Test Item Value Reference Range Interpretation Comments POC-GLUCOSE METER 105 mg/dL 70-110 TESTED AT [facility] [address] (BEAKER) (test code [facility] = 1538) [place] [address] BASIC METABOLIC [id number] 05:55:00 Test Item Value Reference Range Interpretation [...] PATIEN TS. CBC W/PLT COUNT & AUTO [id number] 05:35:00 Test Item Value Reference Range Interpretation [...] PERCENT (BEAKER) (test code = 2801) POCT-GLUCOSE [id number] 21:11:00 Test Item Value Reference Range Interpretation Comments POC-GLUCOSE METER 94 mg/dL 70-110 TESTED AT [address] ([facility]) (test code = [facility] 1538) [place] [address] POCT-GLUCOSE [id number] 16:51:00 Test Item Value Reference Range Interpretation Comments POC-GLUCOSE METER 121 mg/dL 70-110 H TESTED AT [address] ([facility]) (test code [facility] = 1538) [place] [address] POCT-GLUCOSE [id number] 15:10:00 Test Item Value Reference Range Interpretation Comments POC-GLUCOSE METER 97 mg/dL 70-110 TESTED AT [address] ([facility]) (test code = [facility] 1538) [place] [address] [id number] 10:17:00 Test Item Value Reference Range Interpretation Comments PROCALCITONIN ([facility]) (test code 1.41 ng/mL <0.05 H = 3036) SEPSIS RISK (ng/mL)Low: 0.05-0.50Intermediate: 0.51-2.00High: >=2.01HEPATIC FUNCTION [id number] 09:52:00 Test Item Value Reference Range Interpretation Comments TOTAL PROTEIN ([facility]) (test code = 5.2 gm/dL [...] code = 12 U/L 6-50 347) POCT-GLUCOSE [id number] 05:57:00 Test Item Value Reference Range Interpretation Comments POC-GLUCOSE METER 87 mg/dL 70-110 TESTED AT [facility] [address] (BEAKER) (test code = [facility] 1538) [place] [address] BASIC METABOLIC [id number] 05:34:00 Test Item Value Reference Range Interpretation [...] PATIEN TS. CBC W/PLT COUNT & AUTO [id number] 05:33:00 Test Item Value Reference Range Interpretation [...] (BEAKER) (test code = 2801) BUN AND [id number] 05:32:00 Test Item Value Reference Range Interpretation Comments BLOOD UREA NITROGEN 21 mg/dL 10-26 (BEAKER) (test code = 354) CREATININE (BEAKER) 0.79 mg/dL 0.50-1.20 (test code = 358) EGFR (BEAKER) (test 91 mL/min/1.73 ESTIMA YUMIKO GFR IS code = 1092) sq m NOT ACCURATE CREATININE CLEARANCE IN PREDICTING GLOMERULAR FILTRATION RATE . ESTIMATED GFR I S NOT APPLICABLE FOR DIALYSIS PATIEN TS. BLOOD [id number] 04:00:00 Test Item Value Reference Range Interpretation Comments CULTURE (BEAKER) (test No growth in 5 days code = 1095) BLOOD [id number] 01:00:00 Test Item Value Reference Range Interpretation Comments CULTURE (BEAKER) (test No growth in 5 days code = 1095) POCT-GLUCOSE [id number] 21:25:00 Test Item Value Reference Range Interpretation Comments POC-GLUCOSE METER 135 mg/dL 70-110 H TESTED AT [facility] [address] (BEROGELIO) (test code [facility] = 1538) [place] [address] ANG, NON-TUNNELED CATH/PICC >5 Y.O.2017-11-12 17:59:00Reason for [...] MDReport Verified Date/Time: 11/12/2017 17:59:19 Reading Location: [facility] Radiology Reading Room POCT-GLUCOSE [id number] 16:37:00 Test Item Value Reference Range Interpretation Comments POC-GLUCOSE METER 98 mg/dL 70-110 TESTED AT [facility] [address] (BEAKER) (test code = [facility] 1538) [place] [address] PERIPHERAL BLOOD SMEAR - PATH REVIEW LAB [id number] 08:14:00 Test Item Value Reference Range Interpretation Comments PERIPHERAL SMR REVIEW Neutrophilic (BEAKER) (test code = leukocytosis and 2640) microcytic anemia. No blast forms seen. [id number] Nazario Becker M.D. (BEAKER) (test code = [...] few 963) BODY FLUID CULTURE + GRAM [id number] 08:10:00 Test Item Value Reference Range Interpretation Comments CULTURE (BEAKER) (test No growth code = 1095) GRAM STAIN RESULT 3+ White blood cells (BEAKER) (test code = seen 1123) GRAM STAIN RESULT No organisms seen (BEAKER) (test code = 82158) POCT-GLUCOSE [id number] 06:18:00 Test Item Value Reference Range Interpretation Comments POC-GLUCOSE METER 113 mg/dL 70-110 H TESTED AT [facility] [address] (BEAKER) (test code [facility] = 1538) [place] [address] CBC W/PLT COUNT & AUTO [id number] 04:40:00 Test Item Value Reference Range Interpretation [...] (BEAKER) (test code = 2801) BASIC METABOLIC [id number] 03:56:00 Test Item Value Reference Range Interpretation [...] 358) GLUCOSE RANDOM 111 mg/dL 70-110 H ([facility]) (test code = 652) CALCIUM (AKER) 7.5 mg/dL 8.5-10.5 L (test code = 697) EGFR (BEAKER) (test 88 mL/min/1.73 ESTIMA YUMIKO GFR IS code = 1092) sq m NOT ACCURATE CREATININE CLEARANCE IN PREDICTING GLOMERULAR FILTRATION RATE . ESTIMATED GFR I S NOT APPLICABLE FOR DIALYSIS PATIEN TS. BUN AND [id number] 03:55:00 Test Item Value Reference Range Interpretation Comments BLOOD UREA NITROGEN 19 mg/dL 10-26 ([facility]) (test code = 354) CREATININE (AKER) 0.81 mg/dL 0.50-1.20 (test code = 358) EGFR (BEAKER) (test 88 mL/min/1.73 ESTIMA YUMIKO GFR IS code = 1092) sq m NOT ACCURATE CREATININE CLEARANCE IN PREDICTING GLOMERULAR FILTRATION RATE . ESTIMATED GFR I S NOT APPLICABLE FOR DIALYSIS PATIEN TS. POCT-GLUCOSE [id number] 20:51:00 Test Item Value Reference Range Interpretation Comments POC-GLUCOSE METER 151 mg/dL 70-110 H TESTED AT [facility] [address] ([facility]) (test code [facility] = 1538) [place] [address] POCT-GLUCOSE [id number] 17:20:00 Test Item Value Reference Range Interpretation Comments POC-GLUCOSE METER 101 mg/dL 70-110 TESTED AT [facility] [address] ([facility]) (test code [facility] = 1538) [place] [address] SPIN/CONCENTRATION [id number] 15:42:00 Test Item Value Reference Range Interpretation Comments CONCENTRATION CHARGED ([facility]) (test Done code = 2657) POCT-GLUCOSE [id number] 11:34:00 Test Item Value Reference Range Interpretation Comments POC-GLUCOSE METER 109 mg/dL 70-110 TESTED AT [facility] [address] ([facility]) (test code [facility] = 1538) [place] [address] VANCOMYCIN LEVEL, [id number] 09:14:00 Test Item Value Reference Range Interpretation Comments VANCOMYCIN TROUGH ([facility]) (test 10.6 ug/mL 10.0-20.0 code = 522) BASIC METABOLIC [id number] 05:59:00 Test Item Value Reference Range Interpretation [...] APPLICABLE FOR DIALYSIS PATIEN TS. BUN AND [id number] 05:58:00 Test Item Value Reference Range Interpretation Comments BLOOD UREA NITROGEN 17 mg/dL 10-26 (BEAKER) (test code = 354) CREATININE (BEAKER) 0.80 mg/dL 0.50-1.20 (test code = 358) EGFR (BEAKER) (test 90 mL/min/1.73 ESTIMA YUMIKO GFR IS code = 1092) sq m NOT ACCURATE CREATININE CLEARANCE IN PREDICTING GLOMERULAR FILTRATION RATE . ESTIMATED GFR I S NOT APPLICABLE FOR DIALYSIS PATIEN TS. POCT-GLUCOSE [id number] 05:49:00 Test Item Value Reference Range Interpretation Comments POC-GLUCOSE METER 121 mg/dL 70-110 H TESTED AT [facility] [address] (BEAKER) (test code [facility] = 1538) [place] [address] CBC W/PLT COUNT & AUTO [id number] 05:43:00 Test Item Value Reference Range Interpretation [...] PERCENT (BEAKER) (test code = 2801) POCT-GLUCOSE [id number] 00:07:00 Test Item Value Reference Range Interpretation Comments POC-GLUCOSE METER 150 mg/dL 70-110 H TESTED AT [facility] [address] ([facility]) (test code [facility] = 1538) [place] [address] RAD, HIP, 1 VIEW, [id number] 23:51:00Reason for exam:->postopFINAL REPORT Right hip. HISTORY: Postoperative. COMPARISON STUDY: October 29, 2017. FINDINGS: A single frontal view of the right hip demonstrates a hemiarthroplasty in place. No cement is identified. There is no evidence of fracture or malalignment on this single projection. Signed: Alexandrea Blancoeport Verified Date/Time: 11/10/2017 23:51:24 Reading Location: [address] Ortho Consult Reading Room RAD, PELVIS, 1 OR 2 [id number] 23:22:00Reason for exam:->Hip ArthroplastyReason for exam:->X-Table Lateral [...] Blancoort Verified Date/Time: 11/10/2017 23:22:52 Reading Location: [address] Ortho Consult Reading Room POCT-GLUCOSE [id number] 22:54:00 Test Item Value Reference Range Interpretation Comments POC-GLUCOSE METER 140 mg/dL 70-110 H TESTED AT [facility] [address] [facility] (test code [facility] = 1538) [place] [address] POCT-GLUCOSE [id number] 16:57:00 Test Item Value Reference Range Interpretation Comments POC-GLUCOSE METER 98 mg/dL 70-110 TESTED AT [facility] [address] [facility] (test code = [facility] 1538) [place] [address] POCT-GLUCOSE [id number] 12:41:00 Test Item Value Reference Range Interpretation Comments POC-GLUCOSE METER 111 mg/dL 70-110 H TESTED AT [facility] [address] (BEAKER) (test code [facility] = 1538) [place] [address] (MANUAL DIFFERENTIAL)2017-11-10 07:35:00 Test Item Value Reference [...] = 762) CBC W/PLT COUNT & AUTO [id number] 07:32:00 Test Item Value Reference Range Interpretation [...] 0-0 CELLS (BEAKER) (test code = 413) [id number] 07:25:00 Test Item Value Reference Range Interpretation Comments PHOSPHORUS (BEAKER) (test code = 3.5 mg/dL 2.5-4.5 604) [id number] 07:25:00 Test Item Value Reference Range Interpretation Comments MAGNESIUM (BEAKER) (test code = 1.7 mg/dL 1.5-3.0 627) BASIC METABOLIC [id number] 07:25:00 Test Item Value Reference Range Interpretation [...] 8.5-10.5 L (test code = 697) EGFR ([facility]) (test 77 mL/min/1.73 ESTIMA YUMIKO GFR IS code = 1092) sq m NOT ACCURATE CREATININE CLEARANCE IN PREDICTING GLOMERULAR FILTRATION RATE . ESTIMATED GFR I S NOT APPLICABLE FOR DIALYSIS PATIEN TS. POCT-GLUCOSE [id number] 06:45:00 Test Item Value Reference Range Interpretation Comments POC-GLUCOSE METER 121 mg/dL 70-110 H TESTED AT [facility] [address] ([facility]) (test code [facility] = 1538) [place] [address] POCT-GLUCOSE [id number] 22:14:00 Test Item Value Reference Range Interpretation Comments POC-GLUCOSE METER 124 mg/dL 70-110 H TESTED AT [facility] [address] ([facility]) (test code [facility] = 1538) [place] [address] VANCOMYCIN LEVEL, [id number] 21:02:00 Test Item Value Reference Range Interpretation Comments VANCOMYCIN TROUGH ([facility]) (test 9.6 ug/mL 10.0-20.0 L code = 522) POCT-GLUCOSE [id number] 17:22:00 Test Item Value Reference Range Interpretation Comments POC-GLUCOSE METER 98 mg/dL 70-110 TESTED AT [facility] [address] ([facility]) (test code = [facility] 1538) [place] [address] POCT-GLUCOSE [id number] 11:36:00 Test Item Value Reference Range Interpretation Comments POC-GLUCOSE METER 127 mg/dL 70-110 H TESTED AT [facility] [address] ([facility]) (test code [facility] = 1538) [place] [address] WOUND CULTURE + GRAM [id number] 11:05:00 Test Item Value Reference Interpretation Comments Range CULTURE ([facility]) (test ENTEROBACTER A <1+ E [...] No organisms seen (BEAKER) (test code = 936320) POCT-GLUCOSE [id number] 05:54:00 Test Item Value Reference Range Interpretation Comments POC-GLUCOSE METER 116 mg/dL 70-110 H TESTED AT [facility] [address] (BEAKER) (test code [facility] = 1538) [place] [address] [id number] 03:42:00 Test Item Value Reference Range Interpretation Comments PHOSPHORUS (BEAKER) (test code = 3.8 mg/dL 2.5-4.5 604) [id number] 03:42:00 Test Item Value Reference Range Interpretation Comments MAGNESIUM (BEAKER) (test code = 1.9 mg/dL 1.5-3.0 627) BASIC METABOLIC [id number] 03:42:00 Test Item Value Reference Range Interpretation [...] PATIEN TS. CBC W/PLT COUNT & AUTO [id number] 03:21:00 Test Item Value Reference Range Interpretation [...] PERCENT (BEAKER) (test code = 2801) POCT-GLUCOSE [id number] 20:55:00 Test Item Value Reference Range Interpretation Comments POC-GLUCOSE METER 122 mg/dL 70-110 H TESTED AT [facility] [address] (BEAKER) (test code [facility] = 1538) [place] [address] POCT-GLUCOSE [id number] 16:19:00 Test Item Value Reference Range Interpretation Comments POC-GLUCOSE METER 136 mg/dL 70-110 H TESTED AT [facility] [address] (BEAKER) (test code [facility] = 1538) [place] [address] HEMOGLOBIN AND [id number] 14:19:00 Test Item Value Reference Range Interpretation Comments HEMOGLOBIN (BEAKER) (test code = 8.1 GM/DL 12.0-15.5 L 410) HEMATOCRIT (BEAKER) (test code = 24.9 % 36.0-46.0 L 411) POCT-GLUCOSE [id number] 12:13:00 Test Item Value Reference Range Interpretation Comments POC-GLUCOSE METER 142 mg/dL 70-110 H TESTED AT [facility] [address] (BEAKER) (test code [facility] = 1538) [place] [address] POCT-GLUCOSE [id number] 06:02:00 Test Item Value Reference Range Interpretation Comments POC-GLUCOSE METER 109 mg/dL 70-110 TESTED AT [facility] [address] (BEAKER) (test code [facility] = 1538) [place] [address] POCT-GLUCOSE [id number] 05:38:00 Test Item Value Reference Range Interpretation Comments POC-GLUCOSE METER 150 mg/dL 70-110 H TESTED AT [facility] [address] (BEAKER) (test code [facility] = 1538) [place] [address] TYPE AND SCREEN, [id number] 03:11:00 Test Item Value Reference Range Interpretation Comments ABO/RH AUTOMATED (BEAKER) (test B Positive code = 2260) AB SCREEN (BEAKER) (test code = Negative 923) HEMOGLOBIN AND [id number] 02:41:00 Test Item Value Reference Range Interpretation Comments HEMOGLOBIN (BEAKER) (test code = 5.9 GM/DL 12.0-15.5 LL 410) HEMATOCRIT (BEAKER) (test code = 18.2 % 36.0-46.0 LL 411) COMPREHENSIVE METABOLIC [id number] 01:43:00 Test Item Value Reference Range Interpretation [...] S NOT APPLICABLE FOR DIALYSIS PATIEN TS. [id number] 01:36:00 Test Item Value Reference Range Interpretation Comments PHOSPHORUS (BEAKER) (test code = 3.3 mg/dL 2.5-4.5 604) [id number] 01:36:00 Test Item Value Reference Range Interpretation Comments MAGNESIUM (BEAKER) (test code = 1.9 mg/dL 1.5-3.0 627) LACTIC ACID, VENOUS, WHOLE [id number] 01:29:00 Test Item Value Reference Range Interpretation Comments LACTATE BLOOD VENOUS (2) (BEAKER) 0.8 mmol/L 0.5-2.2 (test code = 2872) Effective 07/19/2015: Units/Reference Range ChangeNew: 0.5-2.2 mmol/L Previous: 5-20 mg/dLCBC W/PLT COUNT & AUTO [id number] 01:25:00 Test Item Value Reference Range Interpretation [...] PERCENT (BEAKER) (test code = 2801) POCT-GLUCOSE [id number] 21:52:00 Test Item Value Reference Range Interpretation Comments POC-GLUCOSE METER 113 mg/dL 70-110 H TESTED AT [facility] [address] [facility] (test code [facility] = 1538) [place] [address] CT, EXTREMITY, LOWER WITHOUT CONTRAST, [id number] 19:15:00FINAL REPORT CT scan of the right [...] MDReport Verified Date/Time: 11/07/2017 19:15:59 Reading Location: [facility] B1 [id number] Consult Reading Room RAD, HIP, 2 VIEWS, [id number] 16:19:00Reason for exam:->HIP PAIN FINAL REPORT INDICATION:Right [...] Bauer Verified Date/Time: 11/07/2017 16:19:47 Reading Location: [facility] Women CBC W/PLT COUNT & AUTO [id number] 16:00:00 Test Item Value Reference Range Interpretation [...] (BEAKER) (test code Normal = 762) C-REACTIVE [id number] 15:30:00 Test Item Value Reference Range Interpretation Comments C-REACTIVE PROTEIN (BEAKER) (test 47.39 mg/dL 0.00-0.50 H code = 676) COMPREHENSIVE METABOLIC [id number] 15:30:00 Test Item Value Reference Range Interpretation [...] APPLICABLE FOR DIALYSIS PATIEN TS. BASIC METABOLIC [id number] 06:26:00 Test Item Value Reference Range Interpretation [...] PATIEN TS. CBC W/PLT COUNT & AUTO [id number] 06:12:00 Test Item Value Reference Range Interpretation [...] L 0.00-0.20 (test code = 417) POCT-GLUCOSE [id number] 05:55:00 Test Item Value Reference Range Interpretation Comments POC-GLUCOSE METER 120 mg/dL 70-110 H TESTED AT [facility] [address] (BEAKER) (test code [facility] = 1538) [place] [address] POCT-GLUCOSE [id number] 21:07:00 Test Item Value Reference Range Interpretation Comments POC-GLUCOSE METER 121 mg/dL 70-110 H TESTED AT [facility] [address] (BEAKER) (test code [facility] = 1538) [place] [address] POCT-GLUCOSE [id number] 17:45:00 Test Item Value Reference Range Interpretation Comments POC-GLUCOSE METER 131 mg/dL 70-110 H TESTED AT [facility] [address] (BEAKER) (test code [facility] = 1538) [place] [address] HEMOGLOBIN AND [id number] 14:26:00 Test Item Value Reference Range Interpretation Comments HEMOGLOBIN (BEAKER) (test code = 7.9 GM/DL 12.0-15.0 L 410) HEMATOCRIT (BEAKER) (test code = 24.6 % 36.0-45.0 L 411) POCT-GLUCOSE [id number] 11:22:00 Test Item Value Reference Range Interpretation Comments POC-GLUCOSE METER 134 mg/dL 70-110 H TESTED AT [facility] [address] [address] (BEAKER) (test code [facility] = 1538) [place] [address] BASIC METABOLIC [id number] 05:16:00 Test Item Value Reference Range Interpretation [...] APPLICABLE FOR DIALYSIS PATIEN TS. Specimen recollected. [id number] 04:56:00 Test Item Value Reference Range Interpretation Comments POC-GLUCOSE METER 141 mg/dL 70-110 H TESTED AT [facility] [address] (BEAKER) (test code [facility] = 1538) [place] [address] HEMOGLOBIN AND [id number] 04:10:00 Test Item Value Reference Range Interpretation [...] few 965) CBC W/PLT COUNT & AUTO [id number] 21:34:00 Test Item Value Reference Range Interpretation [...] 6.5-10.5 (BEAKER) (test code = 754) POCT-GLUCOSE [id number] 21:17:00 Test Item Value Reference Range Interpretation Comments POC-GLUCOSE METER 126 mg/dL 70-110 H TESTED AT [facility] [address] (BEAKER) (test code [facility] = 1538) [place] [address] POCT-GLUCOSE [id number] 18:04:00 Test Item Value Reference Range Interpretation Comments POC-GLUCOSE METER 117 mg/dL 70-110 H TESTED AT [facility] [address] (BEAKER) (test code [facility] = 1538) [place] [address] POCT-GLUCOSE [id number] 11:38:00 Test Item Value Reference Range Interpretation Comments POC-GLUCOSE METER 133 mg/dL 70-[address] [place] [address] [address] (BEAKER) (test code [facility] = 1538) [place] [address] BASIC METABOLIC [id number] 04:20:00 Test Item Value Reference Range Interpretation [...] APPLICABLE FOR DIALYSIS PATIEN TS. HEMOGLOBIN AND [id number] 04:11:00 Test Item Value Reference Range Interpretation Comments HEMOGLOBIN (BEAKER) (test code = 8.1 GM/DL 12.0-15.0 L 410) HEMATOCRIT (BEAKER) (test code = 25.6 % 36.0-45.0 L 411) POCT-GLUCOSE [id number] 04:03:00 Test Item Value Reference Range Interpretation Comments POC-GLUCOSE METER 151 mg/dL 70-110 H TESTED [place] [facility] [address] (BEAKER) (test code [facility] = 1538) [place] [address] RAD, HIP, 1 VIEW, [id number] 21:16:00Reason for exam:->postopShould this be performed at [...] Garcia Verified Date/Time: 10/29/2017 21:16:21 Reading Location: [address] Transitional Re ading Room POCT-GLUCOSE [id number] 20:20:00 Test Item Value Reference Range Interpretation Comments POC-GLUCOSE METER 76 mg/dL 70-110 TESTED AT [facility] [address] ([facility]) (test code = [facility] 1538) [place] [address] POCT-GLUCOSE [id number] 15:13:00 Test Item Value Reference Range Interpretation Comments POC-GLUCOSE METER 150 mg/dL 70-110 H TESTED AT [facility] [address] ([facility]) (test code [employer] [facility] = 1538) [place] [address] RAD, HIP, OPERATIVE, [id number] 14:41:00Reason for exam:->RequiredFINAL REPORT RIGHT HIP ONE VIEW HISTORY: Right hip pain, right hip arthroplasty COMPARISON: None FINDINGS: Single intraoperative image of the right hip/low pelvis shows in progress changes of right hip total arthroplasty. A reamer is present in the proximal right femur. The acetabular region is obscured by overlying hardware. Signed: Ceci Aldrich Verified Date/Time: 10/29/2017 14:41:51 Reading Location: [facility] Radiology Reading Room POCT- GLUCOSE [id number] 09:53:00 Test Item Value Reference Range Interpretation Comments POC-GLUCOSE METER 104 mg/dL 70-110 TESTED AT [facility] [address] (BEAKER) (test code [facility] = 1538) [place] [address] BASIC METABOLIC [id number] 12:23:00 Test Item Value Reference Range Interpretation [...] APPLICABLE FOR DIALYSIS PATIEN TS. URINALYSIS W/ [id number] 12:21:00 Test Item Value Reference Range Interpretation [...] = 2795) CBC W/PLT COUNT & AUTO [id number] 12:18:00 Test Item Value Reference Range Interpretation [...] L 0.00-0.20 (test code = 417) MRSA [id number] 08:33:00 Test Item Value Reference Range Interpretation Comments CULTURE (BEAKER) (test code No MRSA isolated = 1095)
== END 2021-01-25 21:49 | disposition home or self-care (01) ==
LOC: ER 17:39
DX: R07.9 Chest pain, unspecified (principal); I10 Essential (primary) hypertension; C76.52 Malignant neoplasm of left lower limb; E87.6 Hypokalemia; Z85.3 Personal history of malignant neoplasm of breast
CPT/HCPCS: 93005; 85025; 80048; 36415; 83735; 85610; 85379; 80076; 84484 ×2; 83880; 71045; 99285; J2550 ×2; J1170 ×4

== ENCOUNTER 2021-02-12 08:18 | Inpatient (IN) | payer OTHER ==
--- OUTSIDE RECORDS SUMMARY | 2021-02-12 08:31 | XMS REPORT | Continuity of Care Document ---
:1960 Author Organization [facility] t Address [address] [place] [address] Care Team Providers Name Role Phone [phone] Primary Care Physician Unavailable Nile TEJADA Attending [...] Attending Clinician Isabelle Ramos MD Attending Clinician [phone] Lazaro LYNN Attending Clinician ANA PAULA TAVARES Attending Clinician Unavailable STEVE GARCIA Attending Clinician Unavailable Nile TEJADA Admitting Clinician Unavailable JAVI BRAY Admitting Clinician Unavailable LEONOR Admitting Clinician Unavailable BOOM CARLIN Admitting Clinician Unavailable NARGIS Admitting Clinician Unavailable STEVE GARCIA Admitting Clinician Unavailable Payers Payer Name Policy Type Policy Number Effective Date Expiration Date S elijah MEDICARE A B [id number] [employer]ET[employer] OPEN ACCESS [id number] 2017 HMO NAP 00:00:00 [facility] MEDICARE [id number] 2020 COMPLETE CHOICE 00:00:00 PLAN 2 [facility] [id number] [facility] - MEDICARE MGD 00:00:00 - [facility] [id number] 2020-Present MEDICARE PART A [id number] 2020 AND B 00:00:00 Problems Condition Condition Condition Status Onset Resolution Last Treating Co mments Source Name Details Category Date Date Treatment Clinician Date Venous Venous Disease Active [facility] obstruct[facility] obstructio 6 Bret k[facility] - n n 00:00: Medical 00 [place] Mass of Mass of Disease Active [facility] iliopsoas iliopsoas 08-20 [facility] - muscle muscle 00:00: Medical group group 00 [place] Pyoderma Pyoderma Disease Active Overview: [facility] gangrenosu gangrenosu 11-10 Post Bret kes - m m 00:00: surgical Medical 00 [place] Hip 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[facility] osteoarthr osteoarthr 10-29 Bret kes - itis itis 00:00: Medical 00 [place] Diabetes Diabetes Disease Active [facility] mellitus mellitus 10-29 [facility] - 00:[facility]: Medical 00 [place] Hypertensi Hypertensi Disease Active [facility] on on 10-29 [facility] - 00:00: Medical 00 [place] Unilateral Unilateral Disease Active [facility] primary primary 10-07 [facility] - osteoarthr osteoarthr 00:00: Me dical itis, itis, 00 [place] right hip right hip Surgical Surgical Disease [...] Stop Date Source Natural father Lung cancer [facility] Natural mother Diabetes [facility] Social History Social Habit Start Date Stop Date Quantity Comments Source Sex Assigned At [facility] Tobacco use and 2017-11-18 2017-11-[address] [facility] [address] [facility] kes - exposure 00:00:00 00:00:00 Medical Center Alcohol intake 2017-11-18 2017-11-18 Current drinker HOMAR rodriguez [facility] - 00:00:00 00:00:00 of alcohol [facility] Center (finding) Alcohol Comment 2017-10-06 2017-10-06 SOCIALLY HOMAR [place] Bret kes - 00:00:00 00:00:00 Medical Center Smoking Status Start Date Stop Date Source Never smoker [facility] Medications Ordered Filled Start Stop Current Ordering Indication Dosage Frequency Signature Comments Components Source Medication Medication Date Date Medication? Clinician (SIG) Name Name folic acid 2020- No 1mg QD Take [address] [facility] [address] (FOLVITE) 1 6-24 -24 tablet (1 Bret kes - MG tablet 00:00: 23:59 mg total) Me dical 00 :00 by mouth Center daily for 30 days. folic acid 2020- No 1mg QD Take [address] [facility] [address] (FOLVITE) 1 6-24 -24 tablet (1 Bret kes - MG tablet 00:00: 23:59 mg total) Me dical 00 :00 by mouth Center daily for 30 days. folic acid 2020- No 1mg QD Take [address] [facility] [address] (FOLVITE) 1 6-24 07-24 tablet (1 Bret kes - MG tablet 00:00: 23:59 mg total) Me dical 00 :00 by mouth Center daily for 30 days. polyethylen 2020-2020- No 17g QD Take [address] [facility] e glycol 6-24 -27 by mouth [facility] - (GLYCOLAX) 00:00: 23:59 daily for M edical 17 gram 00 :00 3 days. Center packet polyethylen 2020-0 2021- No 17g QD Take [address] [facility] e glycol 6-24 06-27 by mouth [facility] - (GLYCOLAX) 00:00: 23:59 daily for M edical 17 gram 00 :00 3 days. Center packet polyethylen 2020-0 2021- No 17g QD Take [address] e glycol 6-24 06-27 by mouth [facility] - (GLYCOLAX) 00:00: 23:59 daily for M edical 17 gram 00 :00 3 days. Center packet gabapentin 2021-0 Yes 100mg QD Take 100 CH I [...] days. Max Daily Amount: 60 mg enoxaparin 2020-2020- No 150mg Inject [address] (LOVENOX) 09-06-23 mL (150 mg Vicky es - 150 [...] 150mg Inject [address] (LOVENOX) -23 07-23 mL (150 mg Vicky es - 150 [...] 12 (twelve) hours for 30 days. cyclobenzap 2020-2020- No 10mg Take [address] [facility] rine 09-06-03 tablet (10 [facility] - (FLEXERIL) 00:00: 23:59 mg total) M edical 10 MG 00 :00 by mouth 3 Center tablet (three) times daily as needed for Muscle spasms for up to 10 days. HYDROmorpho 2020-2020- No 2mg Take [address] [facility] ne 09-06-03 tablet (2 [facility] - (DILAUDID) 00:00: 23:59 mg total) M edical 2 MG tablet 00 :00 by mouth Cent er every 4 (four) hours as needed for up to 10 days. Max Daily Amount: 12 mg cyclobenzap 2020-2020- No 10mg Take [address] [facility] rine 09-06-03 tablet (10 [facility] - (FLEXERIL) 00:00: 23:59 mg total) M edical 10 MG 00 :00 by mouth 3 Center tablet (three) times daily as needed for Muscle spasms for up to 10 days. HYDROmorpho 2020-2020- No 2mg Take [address] [facility] ne [...] daily for 90 days. apixaban 2020- No 5mg Q.5D Take [address] [facility] [address] (ELIQUIS) 5 6-18 06-23 tablet (5 Bret kes - mg Tab 00:00: 00:00 mg total) Medic al tablet 00 :00 by mouth 2 Center (two) times daily for 90 days. apixaban 2020- No 5mg Q.5D Take [address] (ELIQUIS) 5 6-18 06-23 tablet (5 Bret kes - mg Tab 00:00: 00:00 mg total) Medic al tablet 00 :00 by mouth 2 Center (two) times daily for 90 days. apixaban 2020-2020- No 10mg Q.5D Take [address] (ELIQUIS) 5 6-11 06-23 tablets Luke s - mg Tab 00:00: 00:00 (10 mg Medical tablet 00 :00 total) by Center mouth 2 (two) times daily for 7 days. oxyCODONE-a 2020- No 1{tbl} Take [address] cetaminophe 6-11 06-23 tablet by Bret kes - n 00:00: 00:00 mouth Medical (PERCOCET) 00 :00 every 6 Center 10-325 mg (six) per tablet hours as needed for Pain for up to 10 days. Max Daily Amount: 4 tablets apixaban 2020-2020- No 10mg Q.5D Take [address] (ELIQUIS) 5 6-11 06-23 tablets Luke s - mg Tab 00:00: 00:00 (10 mg Medical tablet 00 :00 total) by Center mouth 2 (two) times daily for 7 days. oxyCODONE-a 2020-2020- No 1{tbl} Take [address] cetaminophe 6-11 06-23 tablet by Bret kes - n 00:00: [...] HI St cetaminophe 08-25 tablet by Bret gallego 00:00: 00:00 mouth Medical (PERCOCET) 00 :00 every 6 Center 10-325 mg (six) per tablet hours as needed for Pain for up to 10 days. Max Daily Amount: 4 tablets sodium 2017- Yes 1g Inject 1 g [facility] t chloride 12-05 intravenou [facility] - 0.9% (NS) 00:00: sly every Med ical PF Soln 20 00 8 (eight) Cent er mL with hours. meropenem 1 gram SolR 1 g sodium 2017- Yes 1g Inject 1 g [facility] t chloride 12-05 intravenou [facility] - 0.9% (NS) 00:00: sly every Med ical PF Soln 20 00 8 (eight) Cent er mL with hours. meropenem 1 gram SolR 1 g sodium 2017- Yes 1g Inject 1 g [facility] [...] Q.5D Take [address] (ELIQUIS) 5 12-05-11 tablet (5 Bret kes - mg Tab 00:00: 00:00 mg total) Medic al tablet 00 :00 by mouth 2 Center (two) times daily. apixaban No 5mg Q.5D Take 1 CHI [...] kg Systolic blood 2020-09-06 16:21:00 161 mm[Hg] [facility] Diastolic blood 2020-09-06 16:21:00 75 mm[Hg] [facility] Heart rate 2020-09-06 16:21:00 87 /min [facility] Body temperature 2020-09-06 16:21:00 35.78 Lovely [facility] Respiratory rate 2020-09-06 16:21:00 18 /min [facility] Oxygen saturation in 2020-09-06 16:21:00 97 /min [facility] Arterial blood by Medical Ce nter Pulse oximetry Body weight 2020-09-06 06:00:[address] [facility] BMI 2020-09-06 06:00:00 50.41 kg/m2 [facility] Body height 2020-08-20 18:00:[address] [facility] Procedures Procedure Date / Time Performed Performing Clinician [facility] e CT CHEST WITH IV CONTRAST 2020-09-05 12:35:00 Vandana Tejada [facility] COMPREHENSIVE METABOLIC 2020-09-05 05:16:[address] [facility] 2D ECHO W/ DOPPLER 2020-09-05 01:05:41 Vandana Tejada [facility] (CW/PW/COLOR) [facility] SARS-COV2/RT-PCR ([facility] & 2020-09-03 21:48:00 Tricia Ramos [facility] - REF LABS) [facility] CBC W/PLT COUNT & AUTO 2020-09-03 06:17:00 Vandana Tejada [facility] CBC (HEMOGRAM ONLY) 2020-09-02 04:36:00 Hari Carlin [facility] PROTHROMBIN TIME/INR 2020-09-02 04:36:00 Shabana Perea [facility] CBC (HEMOGRAM ONLY) 2020-09-01 03:48:00 Hari Carlin [facility] PROTHROMBIN TIME/INR 2020-09-01 03:48:00 [facility] US CORE BIOPSY 2020-08-31 18:48:00 Vandana Tejada [facility] TISSUE EXAM 2020-08-31 18:37:00 Vandana Tejada [facility] VITAMIN B12 AND FOLATE 2020-08-31 04:45:00 Vandana Tejada I [facility] CBC (HEMOGRAM ONLY) 2020-08-31 04:45:00 Raegan [facility] PROTHROMBIN TIME/INR 2020-08-31 04:45:[address] [facility] CT ABDOMEN/PELVIS WITH IV 2020-08-30 10:28:00 [facility] CONTRAST [facility] CTA AAA AND RUNOFF 2020-08-30 10:28:00 [facility]INE 2020-08-30 05:17:00 [facility] CBC (HEMOGRAM ONLY) 2020-08-30 05:17:00 Raegan [facility] PROTHROMBIN TIME/INR 2020-08-30 05:17:[address] [facility] HC ARTERIAL DOPPLER LEG 2020-08-29 16:05:00 TraceyerHumberto keaneal I [facility] UNI [facility] CBC (HEMOGRAM ONLY) 2020-08-29 12:50:00 Gadicheroh, [facility] HEPARIN ASSAY - LOW 2020-08-29 12:50:00 [facility] - MOLECULAR WEIGHT [facility] CBC (HEMOGRAM ONLY) 2020-08-29 05:03:00 Raegan [facility] PROTHROMBIN TIME/INR 2020-08-29 05:03[facility] 2020-08-28 16:37:00 Gadicheroh, [facility] - W/RATIO [facility] VENOUS DOPPLER LEG, LEFT 2020-08-28 12:43:00 Gadicherlakhwinder, Tricia C [facility] CBC (HEMOGRAM ONLY) 2020-08-28 04:42:00 Raegan [facility] PROTHROMBIN TIME/INR 2020-08-28 04:42:[address] [facility] SARS-COV2/RT-PCR ([facility] & 2020-08-27 18:10:00 Gadicherlakhwinder Tricia [facility] - REF LABS) [facility] PROTHROMBIN TIME/INR 2020-08-27 12:22:00 [facility] CBC (HEMOGRAM ONLY) 2020-08-27 04:06:00 [facility]/INR 2020-08-26 11:47:00 [facility] CBC (HEMOGRAM ONLY) 2020-08-26 11:47:00 [facility] CBC (HEMOGRAM ONLY) 2020-08-26 06:00:00 Raegan [facility] PROTHROMBIN TIME/INR 2020-08-25 18:11:00 StephanieKinga [facility] CBC W/PLT COUNT & AUTO 2020-08-25 14:27:00 [facility] DIFFERENTIAL [facility] CBC (HEMOGRAM ONLY) 2020-08-25 06:58:00 Raegan [facility] APTT 2020-08-25 06:49:00 [facility] AP[facility] 2020-08-24 22:45:00 [facility] APTT 2020-08-24 12:42:00 [facility] BASIC METABOLIC PANEL (7) 2020-08-24 05:41:00 Boris, Chimkama ariadne morgan [facility] CBC (HEMOGRAM ONLY) 2020-08-24 05:41:00 Perla Carlineb Nur [facility] APTT 2020-08-24 05:41:00 GadicherTricia keane [facility] APTT 2020-08-23 21:14:00 Gadicheroh, [facility] CBC (HEMOGRAM ONLY) 2020-08-23 14:11:00 Gadicherla, [facility] APTT 2020-08-23 14:11:00 [facility] VENOUS DOPPLER LEG, LEFT 2020-08-23 12:46:00 [facility] Tricia [facility] BASIC METABOLIC PANEL (7) 2020-08-23 04:08:00 [facility] (HE[facility]GRAM ONLY) 2020-08-23 04:08:00 Perla Carlineb Nur [facility] BASIC METABOLIC PANEL (7) 2020-08-22 05:37:00 Boris, [facility] CBC (HEMOGRAM ONLY) 2020-08-22 05:37:00 Hari Carlin [facility] US EXTREMITY NON-VASCULAR 2020-08-21 14:30:00 Hari Carlin [facility] CBC (HEMOGRAM ONLY) 2020-08-21 05:50:00 Hari Carlin [facility] COMPREHENSIVE METABOLIC 2020-08-21 05:50:[address] [facility] PROTHROMBIN TIME/INR 2020-08-21 05:50:00 Hari Carlin [facility] XR HIP 2 VIEWS LEFT 2020-08-20 18:25:00 Hari Carlin [facility] XR LUMBAR SPINE 2 OR 3 2020-08-20 18:20:00 Hari Carlin [facility] - VIEWS [facility] XR KNEE 3 VIEWS LEFT 2020-08-20 18:14:00 Hari Carlin CH I [facility] CBC W/PLT COUNT & AUTO 2020-08-20 15:02:00 Hari Carlin [facility] DIFFERENTIAL [facility] COMPREHENSIVE METABOLIC 2020-08-20 15:02:00 Hari Carlin [facility] - PANEL [facility] Center MAGNESIUM 2020-08-20 15:02:00 Hari Carlin [facility] - [facility] PHOSPHORUS 2020-08-20 15:02:00 Hari Carlin [facility] LACTATE DEHYDROGENASE 2020-08-20 15:02:[address] [facility] ([facility]) [facility] URIC ACID 2020-08-20 15:02:00 Hari Carlin [facility] Plan of Care Planned Activity Planned Date [...] Medica l Center colon (procedure) [code = 283118300] Future Scheduled 2018-11-[address] [facility] - Test 00:00:00 malignant neoplasm of Medica l Center colon (procedure) [code = 034383934] Future Scheduled 2018-11-[address] [facility]icky [facility] - Test 00:00:00 malignant neoplasm of Medica l Center colon (procedure) [code = 040839245] Future Scheduled 2017-10-[address] [facility] kes - Test 00:00:00 measurement Medical Center (procedure) [code = 80497971] Future Scheduled 2017-10-[address] [facility] kes - Test 00:00:00 measurement Medical Center (procedure) [code = 48842097] Future Scheduled 2017-10-[address] [facility] kes - Test 00:00:00 measurement Medical Center (procedure) [code = 46489211] Future Scheduled 2010 SHINGLES VACCINES (1 CHI [...] Test 00:00:00 (procedure) [code = Medical Center 70225225] Future Scheduled [address] [facility] - Test 00:00:00 (procedure) [code = Medical Center 61062327] Future Scheduled [address] [facility] - Test 00:00:00 (procedure) [code = Medical Center 18141881] Future Scheduled [address] [facility] - Test 00:00:00 [facility] cervix (procedure) [code = 210952155] Future Scheduled [address] [facility]icky es - Test 00:00:00 malignant neoplasm of [facility] cervix (procedure) [code = 425277782] Future Scheduled [address] [facility]icky es - Test 00:00:00 malignant neoplasm of [facility] cervix (procedure) [code = 436177007] Future Scheduled 1979 DTAP/TDAP/TD VACCINES CH I [...] 00:00:00 examination Medical Center (regime/therapy) [code = 994718886] Future Scheduled 1970 Urine screening [facility] - Test 00:00:00 protein (procedure) Medical Center [code = 542348096] Future Scheduled 1970 DIABETIC EYE EXAM [facility] - Test 00:00:00 [code = DIABETIC EYE Medical Center EXAM] Future Scheduled [address] [facility] - Test 00:00:00 examination Medical Center (regime/therapy) [code = 528998925] Future Scheduled 1970 Urine screening [facility] - Test 00:00:00 protein (procedure) Medical Center [code = 480882105] Future Scheduled 1970 DIABETIC EYE EXAM [facility] - Test 00:00:00 [code = DIABETIC EYE Medical Center EXAM] Future Scheduled [address] [facility] - Test 00:00:00 examination Medical Center (regime/therapy) [code = 855121866] Future Scheduled 1970 Urine screening [facility] - Test 00:00:00 protein (procedure) Medical Center [code = 486541424] Future Scheduled [address] [...] Medica l Center breast (procedure) [code = 292214641] Future Scheduled [address] [facility] - Test 00:00:00 malignant neoplasm of Medica l Center breast (procedure) [code = 507617536] Future Scheduled [address] [facility] - Test 00:00:00 malignant neoplasm of Medica [facility] breast (procedure) [code = 925805523] Encounters Start End Encounter Admission Attending Care Care Encounter Source Date/Time Date/Time Type Type Clinicians Facility Department ID 2020-12-24 Inpatient ER LOIDA TEJADA Inter Rad [id number] [facility] 00:09:17 VANDANA 2020-11-21 Outpatient SYSTEM, MDA MDA [id number] 11:08:21 PROVIDER Holland o lashonda 2020-11-02 Inpatient EL GARCIA, MDA MDA [id number] 23:20:41 GAURAV And erso R n 2020-11-02 Inpatient EL GARCIA, MDA MDA [id number] 23:20:37 GAURAV And erso R n 2020-10-28 [facility] [id number] [facility] 00:00:00 Encounter [facility] 2020-10-17 Outpatient SYSTEM, MDA MDA [id number] 12:21:12 PROVIDER Holland o lashonda 2020-10-28 2020-11-03 Inpatient UR GARCIA, MDA [facility] [id number] 08:47:00 13:55:00 GAURAV Ferreira derso R n 2020-11-03 2020-11-03 Inpatient EL MAYE, MDA MDA [id number] 08:41:05 09:10:15 BIJU Lino o lashonda 2020-11-02 2020-11-02 Inpatient EL GARCIA, MDA MDA [id number] 22:10:35 22:18:01 GAURAV Ferreira derso R n 2020-11-02 2020-11-02 Inpatient EL MAYE, MDA MDA [id number] 17:03:33 19:31:59 BIJU Lino o lashonda 2020-11-02 2020-11-02 Inpatient EL GARCIA, MDA MDA [id number] 08:16:22 08:26:03 GAURAV Ferreira derso R n 2020-10-31 2020-10-31 Inpatient EL STEFANO, MDA MDA [id number] 15:19:32 21:47:10 BAL Carsoners o lashonda 2020-10-30 2020-10-30 Inpatient EL GARCIA, MDA MDA [id number] 04:31:13 04:49:40 CLAYBECKICANDELARIO Ferreira bobbycresencio R n 2020-10-29 2020-10-29 Inpatient EL STEFANO, MDA MDA [id number] MD 18:24:24 19:40:21 BAL gallego 2020-10-29 2020-10-29 Inpatient EL SCOTT, MDA MDA [id number] MD 18:24:28 19:36:56 SUE gallego 2020-10-29 2020-10-29 Inpatient EL SCOTT, MDA MDA [id number] MD 10:00:26 10:24:36 SUE gallego 2020-10-28 2020-10-28 Inpatient EL SCOTT, MDA MDA [id number] MD 22:30:59 22:52:26 SUE gallego 2020-10-28 2020-10-28 Emergency EL KATARINA, MDA MDA [id number] MD 10:57:00 11:46:41 BRENDAN gallego 2020-10-14 2020-10-23 Inpatient ER SCOTT, MDA [facility] [id number] MD 16:40:00 16:38:00 SUE gallego 2020-10-21 2020-10-21 Inpatient [facility], MDA MDA [id number] MD 18:46:01 19:27:32 BOB gallego 2020-10-21 2020-10-21 Inpatient [facility], MDA MDA [id number] MD 14:16:27 14:16:55 BOB gallego 2020-10-20 2020-10-20 Inpatient [facility], MDA MDA [id number] 20:10:36 20:13:24 BOB gallego 2020-10-17 2020-10-17 Inpatient MAYE, MDA MDA [id number] MD 15:00:32 15:42:49 BIJU gallego 2020-10-16 2020-10-16 Inpatient [facility], MDA MDA [id number] MD 09:18:38 09:49:47 BOB gallego 2020-10-15 2020-10-15 Inpatient [facility], MDA MDA [id number] MD 11:01:50 11:06:18 BOB gallego 2020-10-14 2020-10-14 Emergency THEA GALVEZ [facility] [id number] 19:53:40 20:54:56 ALEXYS gallego 2020-10-14 2020-10-14 Emergency STEVEN PORTER JUAN [facility] [id number] 17:59:26 17:59:31 Holland gallego 2020-08-20 2020-09-06 Hospital ER Vandana Tejada [facility] [id number] 13:34:00 17:17:00 Encounter Raegan, Hari Nur [facility] Bryant Willis 2020-08-20 2020-08-[address] [facility] [id number] [facility] 00:[facility]:00 [facility] Results Test Description Test Time Test Comments Results Result Comments Source Tissue Exam 2020-09-14 10:56:00 Test Item Value Reference Range Interpretation Comme nts Case Report (test code = 104) Surgical Pathology Report Case: [id number] Authorizing Provider: Vandana Tejada MD Collected: 08/31/2020 06:37 PM Ordering Location: [address] Received: 09/01/2020 08:13 AM Service Pathologist: Thien Radford MD Specimen: Groin, Left, left iliopsoas mass biopsy ADDENDUM (test code = 3381) [id number] xSZwbsZQrizLevz45pXC2jD39MH8hWYFfGtT7GX KerxM0Tgf2FVEmHWAhsAShZ827c2erc4ltikLzn KL8gWjfOLYtQXOrZNudBFTePoXzPW6zgQ5ztKnk cT2saVFvdTYdnNVebVQmcLNoQOJcpjDagm6zVJI fsrIheM6iorHUUXQjFK3syfM8ihJ4CIC5vLJyfj BdzXsok1DuKgZdKVzpexL3jfAsAKJko8CnxYq5H GAru3BoK5WyQA5nIPdzvMEzrvLmowXhZRTkyeBf Eh5hWSefrbH5iW6sTOWgCKNsENMmw30jbkbaZS5 DBZQqtQ9jfPlpkHDpB8mkAJDipGgrTAdPNRDuFD JXOFO3KFTcxkYgZ9NFVAVsQBDzb2xxWqEoUHAzw vWjoI4bSQmzEggkX6bwYgqieYRmlaFyxIJheUKw NFNwgzrwfjmiInPqsAStODY9bgB6RXOtBWxnCPL poQEoDRCwOAYbQR8gqCXciFxxYLRyuVgsRLPdIT NicpTpDUHxy56zdCGznXGntOb3h5xcTZGiAHO6o zIwKHLaEIByAITgTDLuwWYfYP1pIQPgVTXdrcQu oBNqIuPQqSMlREOlciLcko9kfhBpLRctxRCergS ouCKijVPnuDl4p4LrObVgfDf4uzTvJBWoKXEnyr WiMRkuy8Y0WRDrwRhhblItkWPmUQ0iCPOcHJNrV bHgLGNwb7Aohg6brFEoEIBmlyQQdzNdZJlsIZW4 uAYdtqI9kKJhQA1mADJuUQNgQAKed26ufJFqeS9 yDYPwjv0pqsR0MVNmr0vpwgByUQwfURKada7zMI RbfF2rZdPlePJwfKpnDR05KupgGTRknPNnZPCii MJnN0ZeDVE7kAysBKFoWCQgNxMvmnBmSBGbVJ6H YYQjGNAqp03cPNLivvMpo31kcVv6IYVun68vNLK aYYFeGPAmXBLfGWIaeO0qqTQ5eChsEORreIjutt 6yqZHmPJTkgcSXlrEcMKOwbVTwtG1irdKjqXGtA QRuJZm1NXGnCsIZmC3oCVUbSY1hZ9xxMNszgteu YXJ9 DIAGNOSIS (test code = 3220) o4rokQKdIHPot2rmVQJrsDOcCxDjPrMlTaRgQa p cdWMxIHtccnRmMVxlcGljOTIwMlxhbnNpXHNwbH GkO0QbdeetTZtxHF5aDZ0ivZqwzNQbgTDzQIHjP vXho0piw638vYMtp6xiWCHUripogEn9hRpvM36v i1X4JvziA59hhFSuXQggwCRvbhecrcTmQRKUOdK wFRWYGKBXUZhZFS9UX28VScCGTLIEJFRNFS3QQ5 b7OXWbppVDECmKFJxDLWZLYMivQiQAWBfCL21aU HYxqvIIYV4NIIEZKhLMTuEWEIHLDGuYDmOWID8Z NI0ZYGbFZYXDS7ZEHJ7ZXWhFTP5GSdrdOEHcFPC RTL0CNT0oHgOXF8ODXPNAZYFBQIwQFj5yFHHytw 11LSJ4QsSfd4F6MMY1FHFtQFFxj6fnOIBduIQwO aMlKvEeIeBcZwmzyPJaVYWxAfXiq0jkg593gLDl c1dgMWEpToV2gGDlXXJeiGBxL532DKOtYOfxv8l ew8FxJVStdEJpq4H4QWNXiypiqNu6kDnpH67fa3 L0BikkW7aiCNAvVWVnW5FtOE9yATCwUrs2BOT6Q HI2GFIgZEHeX1YzRW9gJTIsrKYfRNv0h0yqzKqj KCCqPRA5x1boUYdlzmPlBD8fav4jfPa6t0uwiyE fKVEpZFIvgDSLLYNgW8MviXloRm1ifOd2dHhzXw mpIEJ1Ggq6JZ1rnd08awi8jHctVPGjjevkJkQ8B JgnWMVmuytvFLj6GWwuYZRhxJW3VIKesDZzR8Rn XVZwLY7cnub5HRF2KPyxOZYhWgX0GGYgeAGkGMM grFhoAOsbv320EWO0JsAeJV6yX5Kwy6J8rQ1hrQ PxDQCfoKNwCwCzGNMhqb0sdCIsYOvbk3WiQBJ6t vY7fTPhoFTyQEOtAvP4EIvnJP7wie12UXOmIVR3 ws5xiCIfpCrxmxQbhWGgJDbgX0OqSAKit873SSO pR2DiRUMio1S1fqDvMjQmJMWkiRD2exQ2LDTwKF 4gqghlv7crFHteDNbcAUVrykA5mvN5MTAqqRFmT 6DtgE4oWJKsQM8cjjbzu2ymIKZ9LGuoUZDlNYP8 QhTzSIKch8Akvfb5FyXcd6ApzYUgOVvtY15qp50 3ECFuflXeN6iczCJpveorwJJtesylKDohwrD4ZW VgHQtgoymeMGRiNKovI4wkKaPwZJPdiAbxNMmtf 0YsBBItUMZhSwSsqXTjSVQiKmq3GFCqiFJnSNOw MeJkC1qakwyqBfIONTDrg4fdC9tafCCOuUUmF0X oSEtkjiEmXLfpRHxdPZVzKTL4NR16TRkwNMNhhi 19 CPT Code(s) (test code = 3357) c8rclRXdJDXscRD5GtXiMQRgv3zkb5HcrTUj cGF eKSxvjEUcqhYcbg18gPK7nF00YP6vUDXmVhA3II XlkpM8Zko5OQXqPRZcgSQxW331l3rcd8tearEks MU0wUykGBFhREQbSOmqRYZwDfCkNBxfPXYyXGu0 GsRhHGL3FTI5QWo9PNLtwz2= CLINICAL HISTORY (test code = 3356) m6rvpBRxXUAhtOL1CxBxARJon0oua6A sdHBncGF dWMloxZRfgrXkfd22sGS7sP25WZ0mBGCjSaQ2HX HqrbS3Eao3YASeCVKedCReX189p4pmv4mbbgXoj BU2cUhrHMNnEWBqQMwcZXWoSrMsLESlrIGnbs1v fgXgyJM0F4fdsH7bf93myzCpKLFhHTI4OsWnqST 4ReVgfGBcYTWhOYotTTL5 SPECIMEN SOURCE (test code = 3377) l2dpcJHsRUZgzUO0AxKpFCDmh0gud0Jo dHBncGF dBAsuvJVrpxEkjj08bUI9iR41UI4lVXImJfS0YU GetjH4Qkv6RDOyFLUplHGfJ277n5ovn1mazlVar DT3qTtoEEGlOXZyYJylCOEzPjHyFKSvzBJbvu8i vn2fcAoqwIWbGNDyyZTkuD== GROSS DESCRIPTION (test code = 3366) h1zugFGaAGEesZRfHcHiREJzRCLek8 lcZGVmbGF gZsApFoPxRaWjDbauwAMfMQQgCyPtr4img308yK Kzo3urDMNJxqawwBm5f4znAPTnYzB3rECbVWrjK 6gfhcMkzEKnUNBkIPr4jA09BUPqnW8suVHkPDaz ryZeNdV3BWvtYUSuTyM4QZUntRHuUHFiJ5abAXN pQCuhFYCnGLadjJTbNFR7xNdiq9A2sZYmwUDaoL wfSrYvSkLuXKNRs5LqEVb5mGsqA5IaXMZzNzJ9m SFpHUCgRLxmVPQuQONdioN3sB68IVtskzO0sRUo o5Jos69jn334eF6pcUBvQLS9HVGqCZFphTLqVYZ uGAM7HUAngDTwI7w2KdEdkFRjO4O2IwExqNNeR8 J1VnJloXYlC4E9DdZmrCVaRPQtsIScLj9wyQUxc GWmky5qjy23OLF2a6PviPmaVHZ5OOU7ToDfZv0b mFAfYVOeMPSqeBYsXKVuCT8uuQYaZJOtrT7nzwm tISEhQoTwtociYRYwnTmtolFrEr8egAyvULI7BS mfE0afoG3nFwB8QOmlB1uejF1dJBi5NQdxiMX2W EJawT7lSB9dnzljm4hyGzKvVQ0dkllqo0eoApHj JM1laov0q0ctLnIjRF3pvkzif6ozKjIaYBhjTOA mrlaiESVkd3FnsfejTWVyd0BnU1ZmqYgqW09lpU laC33gECXviCtwwD9frMzoyB6iIjTcVaEyMPsjT XJkXHBsYWluXGYxXGZzMjBcbGFuZzEwMzNcaGlj nPncONpoAbJsVAHeZNczP1aiOoLeWcGrJRSPPqA DPNKzjQHtMYBgikEhq5GtNOekvmFuBCFnuGDfEO zjeIhznWmmJBQvlAgtxmGuX8W3pkTpZP4aBQRbI FEwU0NzALYrS98gZRHncV8hDWXqDM2pMZUhec3j fuhapBYwhRLlYT5oPFTfmaIdn8XvBZ2rFT71aIO ocIurMXngSFexx3vcdWXtp54grRH9qEXzhGOfX9 5oGXWxevUvI0leUjMnCgQjMT6zBUGhUTluUUrqb dg2qAPceKBomTP8WXQwvY8pvW91dcAdmeXBOW1n yIbaCLqymV8sXCRuKUnuHSVpW0PgxW2vYH3VNgz cMKZoUVFMA8UlI67ijBIwsY== MICROSCOPIC DESCRIPTION (test code = m4tgmRWbVXUilET8TqClEGCno3ywf4 BsdHBncGF 3371) uMHzryIWogcOcfu19uPW4mF53IN0hSNTcPlW7WA BkqzC6Ilv7PLBbZKLffQEdW204n7mft3kzyoEsn QC3iEmuOKLeCVDqOTenRVTyMvZbHVQDDt3LDRPW XHBhcn0= SPECIAL STUDIES (test code = 3376) k6oazTDfIAYhoUT0GeKxEPEyz7lqr0Tr dHBncGF jMTudjMKtofWpte26iKG7hD51ZN2kIYFiYhQ6HH LljoC4Aew7ATPhCYXruNLbG557KPNxBMWiwHkgp ka1yK12UIPphQ8eiFPiBUh0FKAsnsNzmOyrqD2e LcAoRfGlAyTJbVTytB03KGJypgL3PKEmp49qh7M ygHnibmUzZLPiRFpwK9c0RJAdZSIoGBF2l2Fok0 IamU5esH4asIrbyK6vvEPluDT2jouvh4Vze4CsG 5aqyCKimYBvewXiVWMqzgFAKP1DEdYTWX7vQ2DN DGEJYrcvAsUoVYgzCGFOJHbJBIMTRDE9MHBNUKU oSUZVCAkbFDRdY48ovZBenCCAxKxlQIJrOAflyX otOGV8WIQCvh6hh2DvRWQqus97iaGbq2VtgCn5Y HUke578ni0xqdI6UJWuUNY7JPh1XUHyROBzaS9w IzF3rNUdHAFuEEC3DRN7MHXjv8R7LZ5jXISoXBJ sRCQryeZeu1hpe6oxVHDuBUC0gnAppI0zE6PbVB Vjs7IqqYsqKMNxdMcjoeJmAPZmbEVaUKZttT44S VQesNJvaTInQOEzZEU4XDqkdB3mFxKErhOyqg6x gCUnq4FljMw9QXWflsEazaPoBHDyfrHaA32gaIG jbOVlh8tscdUmjtCfwPBwtDIqRMFuLFS3QRh3QB AnPIzbGKKlALqtDHQmLF8ziB7xeAixnS6srJDex NK3tnhtbZVgvE1tD3LnNTFjk7Njuyrco1SrUFLw iqUhtu7rNLYmkSVLUHuxs3QfQ6XiSIl5c6YewLy mQQbdFOs3HxXbXEBxbCXahCQKTX20DRLyZUVreK eogD1qvWYLAQFhxlK6b2R9XIgtLJWaKBk9DItsz uLjEIDjdT1sGBMfXL2wQTe9kpFwSOLwt9IxEC9k DUBnlQUpBAP1VTJht3ZhE7Pdc9KkFYSjRBBwsq7 kwiPjQrAEsFWkMKPnnz92ZTOfNX5oU9quYWRgBC RuvrOicMClb6NlGGPbeTM5sDKfWT2PFdYUg49uT PRhBOQIkoTuIFZkpGuroPZ5yyQ0iP5xYaEMbMXo VkIAWYhibiZsHKLotx1kguYwQDCkHXHgh1SzzRX baXMjdkEvV8Iyo2MqMRScqu73AZnatGAubt86KB 8fZ7Moi7ExjS7kAKguBKEyl8FidTOtjTPfAURdj 2GdB5rkfwbmGGbybCWanZ2qJHNgYFh6VBSfh5Uu CPBuu7HqBhVkejOwSSNpADPdFJLyuS14DBO7dYu tiOrvyeIqFI2pMUUvpbTkODYmFYIdmN1eKGcdsb PaJLXokaX1d2E1UFboFDTqhfTzZndiEEH2cmLfm qA4jIArJ1nsflqxRJegNEVyn5DkdA2ifKWTsIVd k3PljZCgiSRYxESxEG7wwjJeSG4wZTS0PUwzMVF KFVVaWFirOEWpEGA4NSweWipaDNY1yeOnHDMvt8 OmWMieG5naE94lcIcliBf2zWSoaZkkbAVcvGZcZ ZJdbpG4e4R4TQQyj7VqfskyGEKdeg1= Gross assessment was performed at (test [facility] enter, code = 2777) Department of Pathology, [address] [place] [id number], Technical component was performed at [facility] er, (test code = 2778) Department of Pathology, [address] [place] [id number], Professional component was performed at [facility] enter, (test code = 2779) Department of Pathology, [address] [place] [id number], [facility] [id number] 10:56:00 Test Item Value Reference Range Interpretation Comments Case Report (test code Surgical Pathology = 104) Report Case: [id number] Authorizing Provider: Vandana Tejada MD Collected: 08/31/2020 06:37 PM Ordering Location: [address] Received: 09/01/2020 08:13 AM Service Pathologist: Thien Radford MD Specimen: Groin, Left, left iliopsoas mass biopsy ADDENDUM (test code = [id number] 3381) Hoi5jwu9OjjBOfzWTcJSca qOAwhxEflf34sEH2uA73PF 0dPRMeDeH4ZKFwucK3Mve3 PMWcHNWqgNNsP173t8rxy0 tqyvZnoTW5jVfxKJGnISMm EHboFSHcAkNeTU9zwG5hrH ygzA7iuKJmeYUtxDRopAWc lNMrNWZftzIwrg4lYEOfmn IwlA3akvSGJGCxME4aldY6 cyT4BOP1vRWwvsTqoVqqu5 QdArEnLFevavA5haTbFGFy e7OuzAi9NYBhj2TqH7WfSW 4gVGhleSBhcmUgbmVnYXRp slAdMu6qUWrjjtL8xC1cCO SdZAYzLQHzn08pdserVU0W KWGjvU7ngAwgtYJcF7jdQB FjdGluIChTTUEpLCBNVUM0 SPYgyzMyU8REHZDpBGPnf3 jdHiJkIFNyhwLtcE4wQAca XoayJ8syPodrsLGogqSrfM FibGUsIHJhbmdpbmcgZnJv dWHpVVA0bbD0FEIrLDppVJ YiyCBdTLVcJTYoEL9vuIHl dGljIGNlbGxzIHByZXNlbn MdOWXqi24xcRQjtKQekOn1 x0erNAOnJST9qoCkEFFaWK ZoIFQnAGEbcZMwCE0uPCYk ZWQgbnVjbGVpLiBUaGVyZS QvucUpfj1nqwUwVWbznFOl hsUneDLjiPOgaAa8l0KbSy DgwQx1qeDgSKJiAZFcpkUe VNzge6I8DRNjwAkbsnVukZ DuZB0uQMAuIFApUyYaDJQh v1Wcjl2iaNMiDSPnmaFOhz GfSBgoDEP4nBMftuY7uBDo PL5iEUZwVPQmIBUlu03ywY FtaL7wRGYnlw9lqzM8ZSLi t3lgzgGkEJhzZJPjas1uDT LepW9jXiUbrXLncYcrMI14 LlxwYXJccGFyIFRoaXMgY2 QgZFP6fZlhNYWjYKVvSkPw xsXgHYWmHY3ZRZPyEQDmm5 3ySICjqbDew17gdYr3FDTc q06hAUOxMOGsYEGkJZXfBQ DleV3onIF9sPupRXCryQrk tw8yuZEcQLYxgwVIzlMwTC DxiKSntG3vgkIafQNeULCf OTz1NVIeJcEFgS1iZIKcGX 5lA7azJZomaojpSVS8 DIAGNOSIS (test code = v3acqGSoBDZrf1koOYPvmW 3220) FuZzEwMzNcZnRuYmpcdWMx IHtccnRmMVxlcGljOTIwMl rlyoDdGORjeSQqB8Dbhcif ATuyQB0pFT5hjWlyoQEfgE MtZZGhUwGdc7xpx427aXRt d2elYYAAuvuxeOz0qLceT2 6go8X5WxpmV88bxSSsKKto bGFpblxmczIwIFBBUlQgQS PBNXPDMVrYHF3NA88FNsUW VVBYLEUVJX4AG6t6OVEudr BTUElORExFIENFTEwgTkVP XNxXY63hGGZhyrMLQS6BFL BJTlRFUlBSRVRBVElPTiBQ BS5VZM7QZXyDMROMS2VANG 7KBCzJDN2LUjneWEPeZCHC DL8BNI7sElHTN0YVPKZZKS PUXZdSXh5bRQJsjt11LZV7 BgMxp8L0RQM8HWQgXYSmb9 lcZGVmbGFuZzEwMzNcZnRu BlyogNTdQELkRdYhu5lpy7 34yVIhx5jbAEPkQuK5tBXb YZXtwCQsC414IKTqLOqaj1 pyx0PiMBRpoGVnm5U5TRYK qyvcdJp8pSihE61ua9U8Vr rfW4kgXHViWUNbG6EbYV8t NEEyFqu4HMO5DAD2AXUzWY CnY2CpEW0gPBVffGNtEMn0 o4fblAqjTCWsGAS3y5pmHZ szxeJsHX1gyc6vtPv2y9yl czEgRGVmYXVsdCBQYXJhZ3 GxqMqeFe5zhSc7qQmcEiqz PUF4Odm9DB3snn79die2dF oeHFSfnifcExR3QApeVBLp jenmXEg0QSmhYUBksIK6HR MbePKwZ0VmGGCkQH2rmxl4 OIN0PDyuTONxIdN2OUZvtV BjNBKueMfyGDbzp480TXT9 GfZnHT4rV1Bnk7M6mA0cfN QmTFWrsOHsUfDlPTMrxt1b lEZpFMunv9BrGWA3knN4tT CmcVVhKKNzHyC3FVjiZB8c zy11SSKnRLA1rn9fwHOxgB vqikSgeFCiIGjeP2PrLVLe q176ERWqX8NaUAMhg4N4ij StOcRxWCEqjQZ9tbX2RRTw XL5pigvgz4yvCIzdZLgzGA VufgW4lhL6KFVstWLwB6Md sX1vRFLiXM8vqxbpm6egKN R9OIioFGYxIVL6KpWeJBPo y9Luwiw1MtVhn4UqhJAbYR dtN01wg317ZKCjrvFwV4pm bGFpblxwbGFpblxmMFxmcz E8AYJiXBivraqmAQFjBYfp J9erYqVuNOMcgRhaIZmoy5 NoXGYxXGZzMjJcdGFiXHRh Mfu7JXPvfHJmYRDlFyGlC6 rcnwhsXzHBVUOas6hlW4ic uWKIsABiI1YzOVcovjBxFM snLJjfWNEsRPT1NM02CVgw HJHrfu83 CPT Code(s) (test code o5qgrQAgUQToaHS8JiEuLD = 3357) Cpg7qxa7ErwDQawLKmYWts bFDcqkJrui08cVA2xS86JN 4nHXIjJrC1OYQmvtQ5Yyg6 XOUqKRJcbTWhM615o9doi6 khnnWkjTV0tGaqUOLyCEUi YWluXGZzMjAgODgzMDUsID l1GxUtKDD8NZT4HNp2JDEu cn0= CLINICAL HISTORY (test z4cexXPxURDiwJR7HdVcPU code = 3356) Tfp5xlo1SbgFNbtIRqKFjz eDVhagPbkl17nJP1iX13MQ 4xNJBkQgP7HGMiuoS3Wui9 RUTiPVJybVBfH360u3wnj3 ukzbSwbHV9yAieZRIrEVHp YWluXGZzMjAgTGVmdCBncm 4jsrItsEL7Q5xduJ7nh31k xiNiCPQhZQN8EhMqlTI1Ll EgeCAyIGNtIFxwYXJ9 SPECIMEN SOURCE (test s7ubfKLzNMAnpHQ6YfLwBW code = 3377) Zdg2ehf8AvuENrgVUnNDby sMIxecMjlz70sOZ2tX05CI 9yRQRnUqL5IGJugvE1Qgg2 SXXaOLWprERvC868c7xkr2 oizjHmyIF0sEhjOCMqQIZf YWluXGZzMjAgTGVmdCBncm 2csa6guWjkuQNeTKOuoHQh fQ== GROSS DESCRIPTION (test o0iwuETaLCCgyVMhFfVxGB code = 3366) UpXYFsy9mmOYMprJWjHbCd MzNcZnRuYmpcdWMxXGRlZm Gin7wfj283xVPmz8miBYCN zwzbjLc6d1zzYCWxWlD1cL SaYCuwI1tdjlNlkUEdXAVq KHv6tS24TFGfzJ8jeQSwEN eypzAuPqL9YBsjAVCmVlN7 GKJwpESaOMQlJ4vsJPQzRJ wqQHKrAVdudFGtCWL0hFxl z9M3oERowXIpeNfvViUoQo JnDMCIz4SsJAb6sAybF0Wd DPDuHfV0nDSgSRWtZLohXZ TrYLPuofY2tZ31HQkkqdJ9 iZGob1Ucu11pn127xQ3sqA AzZON8TGTbEDKgkCVqGHJn XSG4DUOlhQHuW9m6WeMpcH PjT0W3FnQdjYOhB7F3AlQm pPZqR6Y3IjJjbLFqVHUaaU JdIp9otWFfyBXgkr5vpn58 ZBV6g1TcoXptTUZ5OIV4Jf QnHi7nyJKbVYHyNGEkwIOo VUXyVB1pdPAjNAFmtW3lfu xjXHBnYnJkcmhlYWRccGdi vuVxWb7oxLjvLSQ9MXtkI9 hklA6ePmB5YEvbS3vtsQ7v RYl3CFbhgMR4LNFolD6fGA 8hycmch7giXdVhOJ3xyics h5koIkAtQH4aong6z6cvRu GkMZ0srrtam9fnHkChTEii OKIkdehtLAZqz2XzgbauOR Hgt7JcB1QodQkkM45njMcc S24nKPLyhBxpnG1vgCfsyY 5cZjBcZnMyNFxwYXJkXHBs YWluXGYxXGZzMjBcbGFuZz EwMzNcaGljaFxmMVxkYmNo TEZzEYhjC6epWvDcWpYzSF BBLiBSZWNlaXZlZCBpbiBm c6EcEJolaaYkTJXhrQSoSV dpdGggdGhlIHBhdGllbnRc W3N2hqWgFY5zWVSrKDQfP6 HdRRLsA10dHOHebN9qQHHs UE6vACSjsn7mlbghcZWfeU RhGO9rDJObzfDcb0NyBF6s TH16dGZmyUflWMwwOXqnr2 hesHVuo62gnJX1pCAsbYFw X14qSWAuwyLlX0uhYdIcZq ZtDR2uKAUbIYcsYEkldqp7 dGWebWJuwVH5CUBpjH5vwX 01reEijmFIHE0ayVyfIVuf gO4lMZYaTVpsELZjE6EeiX 1lLO0GSbsoGQTuZDLVZ4Sq D79bpDUplH== MICROSCOPIC DESCRIPTION h1svtAEtHLRfgEM9CgAoCK (test code = 3371) Mfa8cxp4AxgOHryGNnMWwd uKOfhaYgwl41kUA8cN26OV 2fSOSdMsC3KUNqwaH7Ruh2 QEZaUPVwwCYcY706w7bqe6 zcwfJmsOV5zZrfBAAkPUIy ZStpZOVhXzKlXZDYOk1CTL VEXHBhcn0= SPECIAL STUDIES (test t0dxrOQfNSRekYG2EsMsOM code = 3376) Nwf5aip3UxsZVrpXVgTUvx uADmuaQsuf15nDF9rW92MR 8zONDoHfO0XMHbiaO9Ppy9 CVSmVNDvdEZaZ794RKYwVL DltMdtovl4rC66VRPmwO5a vZDhWAy8NEZvwiRxnMklzV 8cZiAtPeCqLpXPpHCipV72 HTNgdrV5FRRmk42ji1JacP qcxrDnBNLiZQmoR4x3WCSn YBJrEEY4o9Lld2GclX1mjJ 6rrQmatY1zjTWyuQR2iamv x1Xyi6EpU7aqtBPopEAxfj QvZQTjitNDMT7JEeWTKI8i E7VGTYDTMymdIdUaXZtcYB SPREmYCYITVOS0KFIULLRo KLLBCXsvZQKiJ80iyRPwuS BTbGlkZXMgRXhhbWluZWQ6 BRHPuq6gl9RlTHGsly37dk Keg4YrqGr8QMPeo712og5i iiR3UVTbHFS4YLd5HAOtHE LkxJ4jBxH8uIMsJKGwTWP0 OXJ8CSCls6P4AV0wRZTxWB LfOPHaldBco7zct2gjIRYj JUY7kuPzuD6gL6NdAYFdy4 YgdGhlIHBhdGllbnRzIHNh gKRjEVRkxO21NACjdEAuxA XlOPIoRPH1VVlxkF0qUgNE emUoyb0hdNUgf1AznWe1XW LjhkGrdtEgHONqurNnP71z yMMskIVfy2ailzQuviNoaS NnpNNgUXGgMBB2YKr4EQBs CJagBGFzJKziFDHdRL0hzV 9tgNofbG2eyCKgaLV0gpss zRBjcY2gP5GjXDLvx2Zjlz qzu3PsVOYeegUnrx9zPPMk gMDABXzid1ZbY0DyOHl7v0 StmDwqSDtiPHj4OhLoRZKw rVJtuDQFAC15QKZgFETecC pypR3iyTJVXHAlhyR9n9M0 MZapMOVyTMs1VKpfekHjGA FgdR4kGSFpFH4iBUw0miKu OXYod4DiRF5aLURfmMLsFK N7DKTzy3LwK4Bpn9JlPUZo UOGdnd4sxuGtLpWRmHXjWU Zyzp63ZZAyXG5oY1uqKVMi MJIehuRmmGKxl2GdOWMvpN L8cXPbAJ3DTqAGx16mKCUc OZBPymRjVZNkfAfdhGV6jc D1rS9dZyVQiLSeBkDYVEno krLuZKMhdg9eepCoCWQePL Svx1LbkROwtXCoajBnU2Vz u2TfCSXotf34AQipyVAjgg 43EP8qB4Fcz5IcoU5cKGcj IGQbo1ZajNJhsKJdLBFiw2 CaX6upmvcuBEvgoNBzyF3f RPBiFMz2TFLea4JvBSMdt6 QgYmUgcmVnYXJkZWQgYXMg cX46TTL0mOziqBppnjMdTL 1kSFPoclSvWMZlBYAhtL2e QUzijrLwUJNlbgI0o3M7WL alAWKfufShEqevLMD7umEl yzT5oJLiK6bmdmyuCFidDK Oqw3TnvW6blATHxNDkd2Bg zHOvdRELgYDiUO9eqeGgNV 9rZBU8DMpjOZADOCZkUZwo CHGrRRQ6KAmmYjmjUOQ7ox WhMXDsj2QyREbbI6kdK31j gDcceRy6mKBhdQiftTXdmX QkKZBnhcL9t4F0TVTss8Nh bmcuXHBhcn0= Gross assessment was [facility] performed at ([facility], = 2777) Department of Pathology, [address] [place] [address], Technical component was [facility] performed at ([facility], = 2778) Department of Pathology, [address] [place] [id number], Professional component [facility] was performed at ([facility], code = 2779) Department of Pathology, [address] [place], [place] [address], [facility] [id number] 10:56:00 Test Item Value Reference Range Interpretation Comments Case Report (test code Surgical Pathology = 104) Report Case: [id number] Authorizing Provider: Vandana Tejada MD Collected: 08/31/2020 06:37 PM Ordering Location: [address] Received: 09/01/2020 08:13 AM Service Pathologist: Thien Radford MD Specimen: Groin, Left, left iliopsoas mass biopsy ADDENDUM (test code = [id number] 3381) Nki0llr1YgzLSgsRFrJBbl xSVirhNlip81jKD3rM24EN 0vWNFqHnH6HLCgevY2Izf5 MUIvJHLpdKThV341w4nvy0 sdwrDftVJ0kEmyOWBbFRJy RElrERJwJqXqTZ8zdO8soL vamH0ksLEioWSzhIDwkBHa bNPcBAReqbMahp7uCGUdji EbcY0xynWBRVZiRE0qjoC0 geF4TFO9tSQkefQjeXwjy7 IrBtZhCTnapkD4vrBqSKSa l4NksGi7WTDyr5QgL9XcOU 4gVGhleSBhcmUgbmVnYXRp peUcZi9jPTqymtE5kY3oEY DsADFvBGVjs62bupkvXT9S HASpqW6fhQiqqMKfN1ntDH FjdGluIChTTUEpLCBNVUM0 MEEchwAkW9GVDPEaUFVqw4 kmUcQbAPDfcnVuwY6xJIbd IzzuZ6lwCocegSKpwfOezQ FibGUsIHJhbmdpbmcgZnJv rCWyMNY8etP7GUHtLQebVM CgkGMbVDFcJVTsLR9aqDPw dGljIGNlbGxzIHByZXNlbn NpVDWoo49dlZLvzYIklJo5 w3nxXKPnWQH7qgSxGKTwXL ZfKDSpQAVzuAJsYE0cOVNz ZWQgbnVjbGVpLiBUaGVyZS DpckMkqi2obqAyHWsfsZXe doSyjWJezHUnmPp0i8DwQx AafPy6rlZtZFCwRZSyrzEu CBltg1E5QGPfsPsmzoDpvB DiYD8iXBEsOMHoUrLsHKXj a9Sbnn9awQJaVWVwcyVHuh GqQLipFRK9uTYethG8kYNr TW3jEAUdVTCaTEXqm50saK GyvE4pRPPwyl7aflP6FHUk f9jelxRsOTjmNCVgmb7tES NqbN4hXgWaiTIagOqfEW11 LlxwYXJccGFyIFRoaXMgY2 HwZDS2nFdnCSNfRCMeXwWb ruKdYHLbGH6KSGCeKGYek5 3cMVDtykPwp24pkZz0ZLGi u24gMZKfZUMxWFVmUPGxMS WweA8jjPA9wEimAPCbuBer bi8qlCUmEORmpqQFdlSkXZ YhpRQaeS3cjsLepCUnPTBw TTa4DCPnApDCoJ3fPGDsPJ 5oH8tlXJfjqdbgCUC1 DIAGNOSIS (test code = k1vzePGeJXCrg3uaEGHefM 3220) FuZzEwMzNcZnRuYmpcdWMx IHtccnRmMVxlcGljOTIwMl havuRyGYDlrRGdK1Eopkow KQlgSU9wMQ4hhOsjzMIobN LzESWuPnAns0yzq544sDBj p5mcSVFLmfqwmUs0tJcnP7 0ep0P2PrqtQ45agKKpTOrb bGFpblxmczIwIFBBUlQgQS SCESZOITpCIM4UX15WUhPL YZUYZFPSBM0YV6m6CSPrll BTUElORExFIENFTEwgTkVP HDmGK96sRBJixtAYRS7KBP BJTlRFUlBSRVRBVElPTiBQ ME5RAI6LOPsLHNPWF2FNRS 5HGNxFAM9DTbbgQMOdYANW EP6ZIX6tCtBGC5DALAUDIK NZQCdYJr5zOTNewv99BDM8 LhQtl2V4YCK1ANUbHLHpg4 lcZGVmbGFuZzEwMzNcZnRu MfholHDsGTWkAnBce2ddt8 39nYDfw5qpHHRdUvR7vZFk WNBzsCZfD411DONeKQzdj3 izn8XiQDXbfKOix9Q4RQCG jfqhmFh0uHalM47ci4R2Tz xsO8rhZAJyGDCcI1RzAG8r MKEaTkk3BFR3RON6KLBiTN VrT0VcWT6wMUWmqGInUQd2 d6jeyCpnMHZrFUA2x3ltTO psefNyVC6xxf4mcZe4o9yx czEgRGVmYXVsdCBQYXJhZ3 IjkHpjZt4rxKj1hYhzSyop OME9Tcd3KQ9tsm74ecv1sZ ihSFYenjmgCcR8HJduDQVw netmRCx7CEoaIWQzbYE6KW DnpQCqF9WhHOYmDY6gmcl9 ITP0OZfaPUGuKaL7WZPgzB YpNGSpvQksJYyrz538LTG7 OoLrMU1fB3Zol8P8xT3zyY ToEOXbiVIzZmMrICOhsl4z yYEsIRxeb6RwAUF6dxN3xV WurAKxTORqQsY9VMkzAX4r hl67UDJnPHL6kq9hpTXpuT upgmPfpRUiJEmaM9IpNSOd h098XDFuA3EgVCQup2D7jf RaCeYkFTEgxJQ2rsC8HGRp AZ9albdiw8eaBEkwQBxcXC IoebM1luN1KGAulBTpB2Yg sL8wKMAzND5itpbek0ujMD F2BCicBSUqBEC9NzXsLGXp w3Dtqcu6FtTvk0KrbEKuFE kxS03qs051TTAsagLdG5nk bGFpblxwbGFpblxmMFxmcz K8BUYqSKiobpxfDPRqAMfw I5seNcCzUCVjmFpiIGfbk8 NoXGYxXGZzMjJcdGFiXHRh Rto0BOChhSXqGCDsDsQmZ4 ytsyjtYcNBRSSno2mzY6jn aILThANoP7RjRMqwtuCgBT cdPKsuVRNvBVZ5VS27OKir JZOchm14 CPT Code(s) (test code l4hnmIYvZGBotMP2BfSqFY = 3357) Ksl8chc1BddZNsfGPtUSkv kEWbjfHcxt28iYJ1zY41CR 2lMZShRcS6PGQhugA3Bas0 QLYsKEPtvEDkK100k3prx3 cnnyDzfQJ2qKvwHTXnVCCg YWluXGZzMjAgODgzMDUsID l2YrCbJRR0FLA9BDq7EQVz cn0= CLINICAL HISTORY (test z9prsDXxLPMbyTD7ToAhAG code = 3356) Tzu7lwz1SytZHovZPnYHfn vXOacyZdkc11rKG7mZ66UK 3fFOMcYzJ2TJOxmwK7Niw6 LPWxZGMogRIyJ117r7wao9 tpmnDvtWX2mEpuLIYvLRVr YWluXGZzMjAgTGVmdCBncm 1lllJphUI4N2rjmK1qh76r tdHuCSDkWNF7AfEpuNW7Mv EgeCAyIGNtIFxwYXJ9 SPECIMEN SOURCE (test s8bkqAOoIUOzuLM6VfAiFF code = 3377) Jap2vsh4RumIJbbWSrDAcg mYKxelXaze09nHC9bT18BQ 5jCCGtRhW6BNOiymV1Mxs4 LBLdMQCltPOrF587u0spm4 xdldCzkNA0mSpbDFYdRDPj YWluXGZzMjAgTGVmdCBncm 3imf9icBymoALcBPGnoPVw fQ== GROSS DESCRIPTION (test n8txtMZpDIRzsVAhImVrIA code = 3366) LwQARft0vzGRVqwYQeLvIt MzNcZnRuYmpcdWMxXGRlZm Blx8sqc978yFLio5kaDJJQ luqgiYq2n7flCWEeXuC1kX PmILvuC9zqntMcmRXaYJBn VAm8yQ59RMJbqM5klORuRA omabEkXlB5MNlaFSTaBuZ5 YQLeqPEyIVXnU1rlVAIoMB hrJCSrTIqxeUFdXRB9oJxy l7C4tYLvnJNcrNxxTwAwMy WyGKRIy5TtKGx3iLttP1Pf PTErJnM3dHRdPBOzBNnjLP GzWSOfgnF2dJ49EHmygwV5 sCUia8Kki74uv408wV0gaN WkPGB8MXIdQAYtySHbCFPu WWF0YKQkgKAwO8g8EaOtcO JdH6F8CwBfnYDbN2A5BlVc kPLgM2I3HfUqfMYvFYAwvQ MjBl1eeOAnrZGxnu7exw99 AGU2z6YniCfkEJW4NKH7Ji RqCc7wuQQxMUUoBNOddUSk SEHeOH1ibYRaYHRkpX3rda xjXHBnYnJkcmhlYWRccGdi ruRmXd9lrVmyHLD1TRfgV5 yniQ3nDkE8FJnxT4giiX0i DNp3IPacjYY4ACPsxA2jNV 5xsjjld2xfBcFoFH1yxzxe k6efGtRrEX6momf6i2fgLa GjNK2xjbpzv5axGoGtFNok IEDhozldUVIps9ZpgprdDW Imx6AzA4DnyQsgT19zeAic R39uLBNyeZecfT6ibInuvK 5cZjBcZnMyNFxwYXJkXHBs YWluXGYxXGZzMjBcbGFuZz EwMzNcaGljaFxmMVxkYmNo UXRsGNapK0kaYpDuHoZtKX BBLiBSZWNlaXZlZCBpbiBm i7GwMNgafxKfAKKwnMGfMC dpdGggdGhlIHBhdGllbnRc G0Q2bhGsXO3iOEOyTPSyU0 NsJKEjT41yFYXkuB2jCGLo TZ5hQYUncq5ydrwviFHbcI QbZQ8rIOJylbOqt1YoOQ5y NZ90zLBfvIdyCGkaWNmmy5 ebmWFnm23szEH8cVJtxNDn R42lADEmrtPnL0orUjEmNr PvAT8xGBHuXVidUXdevsg0 cQFteCUgxPV2KEAzvL5wdM 03anJumpLDBY1slHxeKTme wH4hXAVrFBwaCKDiS0PooX 8eUP4TUdjlGVSiZPNIR3Uc X90diUIhyF== MICROSCOPIC DESCRIPTION m0ypbBUqDJCmlYM8KnYpND (test code = 3371) Mor7pyw5CtvZTgzUTnRSco dEWyhgQzal97jVL3yQ70EZ 1hJHWaSwK5LLSdhaJ9Swd2 MPZvZYWxtAFhD250w6ubf4 ikcyRevBW9kApdBADaEITe NTqjXFDeFxUeJYPCNy3HES VEXHBhcn0= SPECIAL STUDIES (test f5wsiWClDXSfmVU9JgPpEN code = 3376) Ers1qfv2OrfYGbmTDzHOpn pLChdeMfry65cHW5aN42BR 1nXVGrQxW5QDMysoT1Ico0 RLMjXZOidYXcK317FNQfQD FwiFrcwol4mU11CKVbnI5s pTJoZIu4XVIaqtGpoAjleH 7hPdBjOmWmFgWNkUFezI66 OOVfavA6YBViz20na7PwyV znwvPeSNUgWJcjK1s4UQXw QSMeNOB9y9Lev9RbuN6yvK 2kzWhpqA5nvOWjbRY0nher x1Xfk7IpH8mhaWQuiAOrdn SgNSOhqxFHNM2BWtLFVT2p Z9IXIEFJAetmThGoPDhhCI WGWJdEXBRKZUE8FKKEZJMm CVZXTPzmBNIfW38qnLJclJ BTbGlkZXMgRXhhbWluZWQ6 MVXVam2tt9EzVVTpbn41io Lsl1XfpQz9ABNvg430yk8p weE6JEOoLZR5YHf6DRZuBQ IuaN3vDbH7sDZmZMNcAHV5 BRC9TAXwl3B1NZ2uYISbZT TaFAZvjqPsq0cva0zwYMDw YUA8qiEptH0dS7PbAENrc4 YgdGhlIHBhdGllbnRzIHNh jEBqQUNatB30ULWcpRYlkB DjLSLdVBL7GSwqmO6iPkGX gsZioj4mcAKpz4HwmCo8TE KblhKjxxVqFHLrryVmU73f fHPxlAFox3chcqEptmIzaV QigCJsAAJmLBK1GRl4ZLOj RXcpDQWgZSjuYEYvAD0tgX 6flVwtsM5egYSppAQ3yvcp bIJudE1qT9LcEAZqo8Bniv tts4TqGFDeogMauq1rWJQa rNTKLOqrc6FfM4EtJEs3g6 PnsVqxPBqqRXv9LgUfFVXg cXKelCVYLZ44IAVjQBLgzX ghdN5crVULNAOoyhI0c8B6 GKkzVBNpPNg8FJlqcrMsZS MetF8uIKNeQX8iYHd3duIn ZIArq7SdQM8aHBWogNDmWZ Y2XNThw2MpT2Mbq6JpVKOo XAAqxq9rubIjUwKQsAHlUT Gvit84BKQvXR9nT2cnUSVk DKKxuaYgiRUlg4MlSTTgpG V3xMZbFG2RCvTBn17gLEOt YZQLbwBdGUFdsQjwoKV3cz K8bL1fKyNEbOQfErTDDHwx eqXfPXKrtg4ighVbWCJmWI Jey2TiaIIfoKOtztYdZ3Rk h3UmIJSfjf90LTgdsJWiuw 87FH4yU0Njg3JrnW5oDSwv SBQno8PolCWkgTNvBKDji7 IgW8tztpxgCUmgkDIrlJ6j KPZfGGc9IDQkn0SqVHYta2 QgYmUgcmVnYXJkZWQgYXMg lS25VJH0wGbypUnnciBdPN 8nUUDuvqYyFYWoTGLyvI4q EGrjebMkUBIgvpC2m0D0FT kjZRXrepTkXbtnVBK8anDd edI8aTWeL5nwgvjkXJbsZD Zkp9QxvE9aqHXKlHKng7Tv yVUplZMUsDOsAS3fhuUsOD 4cSTS3MZgfSCUYEYQeRQnf CAUzSUE4QAkvVeufOSY8pa ChWSErp5OqYHhjT0cmG67s wFlmgJi4oKZsfQtxyXPzsU FsSNRttsB3p7A4JQYgq5Qx bmcuXHBhcn0= Gross assessment was [facility] performed at ([facility], = 2777) Department of Pathology, [address] [place], [place] [id number], Technical component was [facility] performed at ([facility], = 2778) Department of Pathology, [address] [place] [id number], Professional component [facility] was performed at ([facility], code = 2779) Department of Pathology, [address] [place] [address], [facility] [id number] 10:56:00Surgical Pathology Report Case: [id number] Authorizing Provider: Vandana Tejada MD Collected: 08/31/2020 06:37 PM Ordering Location: [address] Received: 09/01/2020 08:13 AM Service Pathologist: [...] addendum report will follow.Intradepartmental review: Dr. Deon Stewartddendum electronically signed by Dorene Radford MD on 09/14/2020 at 10:56 AMPART A LEFT ILIOPSOAS MASS, BIOPSY:SPINDLE CELL NEOPLASM.FINAL INTERPRETATION PENDING IMMUNOPHENOTYPING.ADDENDUM REPORT TO FOLLOW. Signing Pathologist Direct PhoneLine: [phone] signed by Thien Radford MD on 09/01/2020 at 3:59 [id number], [id number] groin cyst/iliopsoas mass, 6.3 x 6.1 x 2 cm Left groin/iliopsoasA. Received in formalin labeled with the patient's name, medical record number and "groin, left" and consists of multiple unr-white soft tissue cores ranging 0.2-1.2 cm in length submitted in toto in A1.MARCOS [place], DI (ASCP)cmPERFORMEDThe interpretation of this case included the use of immunohistochemistry or special stains.BLOCK A1- KERATIN, S100, DESMIN, CD34, JOAQUÍN, SMAControl Slides Examined: In-house known positive controls were evaluated along with the test tissue. These control slides run alongside ofthe patients sample show appropriate staining. Internal positive and negative controls when available are evaluated Immunohistochemistry technical testing was performed at [facility], Pathology Laboratory where it was developed [...] to perform high complexity clinical la boratory testing.[facility], Department of Pathology, [address] [place] [address], [facility], [facility] of [facility], [address] [place] [address], [facility], Department of Pathology, [address] [place] [id number], PW, CHEST, WITH CONTRAST 2020-09-05 14:16:00Unlisted Reason for Exam - Click Yes and Enter Reason Below- >YesUnlisted Reason for Exam->spindle cell neoplasm, need CT chest to complete stagingSH[facility] GROSSMONT [facility]Name: DANIEL DEL VALLECHRISTIANE : 1960 Sex: FFINAL REPORT CT of [...] Impression: Right mid lobesubsegmental atelectasis. Signed: Brie Smitheport Verified Date/Time: 09/05/2020 14:16:01 Reading Location: [address] Body Reading Room Electronically signed by: BRIE SMITH M.D. on09/05/2020 02:16 PMCT chest with IV [id number] 14:16:00Interface, External Ris In - 09/05/2020 2:18 [...] MDReport Verified Date/Time: 09/05/2020 14:16:01 Reading Location: [place] [address] CT [facility] 2020-09-05 14:16:00Interface, [...] MDReport Verified Date/Time: 09/05/2020 14:16:01 [facility] 2020-09-05 14:16:00Interface, [...] MDReport Verified Date/Time: 09/05/2020 14:16:01 Reading Location: [facility] C013Y CT Body [facility] W/Doppler(CW/PW/Color) 2020-09-05 09:47:35 Test Item Value Reference Range Interpretation Comments Ejection Fraction Est EF is 55-60% (test code = 2574) PXN (test code = Interface, External Ris In PXN) - 09/05/2020 9:47 AM CDTTransthoracic Echocardiography Report (TTE) Demographics Patient Name DANIEL DEL VALLE Date of Study 09/05/2020 NEELAM Gender Female Visit Number [id number] Race Unknown Room Number 2146 Number Date of 1960 Referring Physician Vandana Tejada MD Age 60 year(s) Medicine And Health Service Manager MARTA Be Interpreting Eduardo Roberts MD Fellow [...] Velocity: 2.81 m/s TR Gradient: 31.62 mmHg [facility] W/Doppler(CW/PW/Color)2020-09-05 09:47:35 Test Item Value Reference Range Interpretation Comments Ejection Fraction Est EF is 55-60% (test code = 2574) PXN (test code = Interface, External Ris In PXN) - 09/05/2020 9:47 AM CDTTransthoracic Echocardiography Report (TTE) Demographics Patient Name DANIEL DEL VALLE Date of Study 09/05/2020 NEELAM Gender Female Visit Number [id number] Race Unknown Room Number 2146 Number Date of 1960 Referring Physician Vandana Tejada MD Age 60 year(s) Medicine And Health Service Manager MARTA Be Interpreting Eduardo Roberts MD Fellow [...] Velocity: 2.81 m/s TR Gradient: 31.62 mmHg [facility] W/Doppler(CW/PW/Color)2020-09-05 09:47:35 Test Item Value Reference Range Interpretation Comments Ejection Fraction Est EF is 55-60% (test code = 2574) PXN (test code = Interface, External Ris In PXN) - 09/05/2020 9:47 AM CDTTransthoracic Echocardiography Report (TTE) Demographics Patient Name DANIEL DEL VALLE Date of Study 09/05/2020 DENYL Gender Female Visit Number [id number] Race Unknown Room Number 2146 Number Date of 1960 Referring Physician Vandana Tejada MD Age 60 year(s) Medicine And Health Service Manager MARTA Be Interpreting Eduardo Roberts MD Fellow [...] Velocity: 2.81 m/s TR Gradient: 31.62 mmHg [facility] HospitalComprehensive metabolic [id number] 07:34:00 Test Item Value Reference Range Interpretation Comments Protein, Total (test 7.5 See_Comment [Autom ated code = 2885-2) message] The system which generated this result transmit yumiko reference range : 6.0 - 8.3 gm/dL . The reference range was not u sed to interpret th is result as normal/abnormal . Albumin (test code = 3.6 g/dL 3.5-5 17018-2) Alkaline Phosphatase 106 U/L 40-150 (test code = 6768-6) Total Bilirubin (test 0.2 mg/dL 0.2-1.2 code = 1974-) Sodium (test code = 139 meq/L 853-405 4762-2) Potassium (test code 4.7 meq/L 3.5-5.1 = 2823-3) Chloride (test code = 104 meq/L 98-107 2074-0) CO2 (test code = 25 meq/L -2027-) BUN (test code = 10 mg/dL 7-21 3094-0) Creatinine (test code 0.70 mg/dL 0.57-1.25 = 2160-0) Glucose (test code = 159 mg/dL 70-105 H 2345-7) Calcium (test code = 8.8 mg/dL 8.4-10.2 83239-2) AST (test code = 9 U/L 5-34 1920-8) ALT (test code = 13 U/L 6-55 1742-6) EGFR (test code = 103 mL/min/1.73 [place] [address]-3) NOT ACCURATE CREATININE CLEARANCE IN PREDICTING GLOMERULAR FILTRATION RATE . ESTIMATED GFR I S NOT APPLICABLE FOR DIALYSIS PATIEN TSMaximiliano JESSICA (test code = JESSICA) Doffer ID - BALA M Lab Interpretation Abnormal (test code = 83357-4) [facility] [id number] 07:34:00 Test Item Value Reference Range Interpretation Comments Protein, Total (test 7.5 See_Comment [Autom ated code = 2885-2) message] The system which generated this result transmit yumiko reference range : 6.0 - 8.3 gm/dL . The reference range was not u sed to interpret th is result as normal/abnormal . Albumin (test code = 3.6 g/dL 3.5-5 54434-4) Alkaline Phosphatase 106 U/L 40-150 (test code = 6768-6) Total Bilirubin (test 0.2 mg/dL 0.2-1.2 code = 1974-04) Sodium (test code = 139 meq/L 777-098 5887-2) Potassium (test code 4.7 meq/L 3.5-5.1 = 2823-3) Chloride (test code = 104 meq/L 98-107 2074-0) CO2 (test code = 25 meq/L 2027-11) BUN (test code = 10 mg/dL 10-04 3094-0) Creatinine (test code 0.70 mg/dL 0.57-1.25 = 2160-0) Glucose (test code = 159 mg/dL 70-105 H 2345-7) Calcium (test code = 8.8 mg/dL 8.4-10.2 44228-2) AST (test code = 9 U/L 5-34 1920-8) ALT (test code = 13 U/L 6-55 1742-6) EGFR (test code = 103 mL/min/1.73 [place] [address]-1) NOT ACCURATE CREATININE CLEARANCE IN PREDICTING GLOMERULAR FILTRATION RATE . ESTIMATED GFR I S NOT APPLICABLE FOR DIALYSIS PATIEN JESSICA (test code = JESSICA) Doffer ID - BALA Hernandez Lab Interpretation Abnormal (test code = 41084-5) [facility] [id number] 07:34:00 Test Item Value Reference Range Interpretation Comments Protein, Total (test 7.5 See_Comment [Autom ated code = 2885-2) message] The system which generated this result transmit yumiko reference range : 6.0 - 8.3 gm/dL . The reference range was not u sed to interpret th is result as normal/abnormal . Albumin (test code = 3.6 g/dL 3.5-5 58895-4) Alkaline Phosphatase 106 U/L 40-150 (test code = 6768-6) Total Bilirubin (test 0.2 mg/dL 0.2-1.2 code = 1974-2) Sodium (test code = 139 meq/L 112-125 9387-2) Potassium (test code 4.7 meq/L 3.5-5.1 = 2823-3) Chloride (test code = 104 meq/L 98-107 2074-0) CO2 (test code = 25 meq/L 2027-11) BUN (test code = 10 mg/dL 10-04 3094-0) Creatinine (test code 0.70 mg/dL 0.57-1.25 = 2160-0) Glucose (test code = 159 mg/dL 70-105 H 2345-7) Calcium (test code = 8.8 mg/dL 8.4-10.2 97549-1) AST (test code = 9 U/L 5-34 1920-8) ALT (test code = 13 U/L 6-55 1742-6) EGFR (test code = 103 mL/min/1.[place] [address]-2) NOT ACCURATE CREATININE CLEARANCE IN PREDICTING GLOMERULAR FILTRATION RATE . ESTIMATED GFR I S NOT APPLICABLE FOR DIALYSIS PATIEN TS. JESSICA (test code = JESSICA) Doffer ID - BALA M Lab Interpretation Abnormal (test code = 39613-9) [facility] [id number] 07:34:00 Test Item Value Reference Range Interpretation [...] S NOT APPLICABLE FOR DIALYSIS PATIEN TS. Doffer ID - BALA MSARS-CoV2/RT-PCR (Asymptomatic ONLY)2020-09-04 12:52:00 Test Item Value Reference Range Interpretation Comments SARS-COV2/RT-PCR Negative Not Detected, (test code = Negative, See 92305-4) external report for linked test SARS-COV-2 [facility] PERFORMING LAB (test code = 25062-9) JESSICA (test code = Negative result for [...] of the Act. Fact Sheet for Healthcare Providers:https://www.[employer].me.e-Rewards/sites/default/f nito/product/documents/F act_Sheet_HC_Providers_L bfb_ARJQ-JqS-1.pdf Fact Sheet for Healthcare Patients:https://www.CHEQROOM del.com/sites/default/fi les/product/documents/Fa ct_Sheet_Patients_Lyra_S ARS-CoV-2.pdf Performing Laboratory:[facility] [place] [address] [facility]As[facility]omatic ONLY)2020-09-04 12:52:00 Test Item Value Reference Range Interpretation Comments SARS-COV2/RT-PCR Negative Not Detected, (test code = Negative, See 50557-6) external report for linked test SARS-COV-2 [facility] PERFORMING LAB (test code = 41543-9) JESSICA (test code = Negative result for [...] of the Act. Fact Sheet for Healthcare Providers:https://www.CoverHoundl.com/sites/default/f nito/product/documents/F act_Sheet_HC_Providers_L iqf_TYLA-PaN-1.pdf Fact Sheet for Healthcare Patients:https://www.[employer].com/sites/default/fi les/product/documents/Fa ct_Sheet_Patients_Otto_S ARS-CoV-2.pdf Performing Laboratory:[facility] [place] [place] [address] [facility] (Asymptomatic ONLY)2020-09-04 12:52:00 Test Item Value Reference Range Interpretation Comments SARS-COV2/RT-PCR Negative Not Detected, (test code = Negative, See 12054-6) external report for linked test SARS-COV-2 [facility] PERFORMING LAB (test code = 00402-9) JESSICA (test code = Negative result for [...] of the Act. Fact Sheet for Healthcare Providers:https://www.[employer].e-Rewards/sites/default/f nito/product/documents/F act_Sheet_HC_Providers_L ecw_CDYR-SgR-0.pdf Fact Sheet for Healthcare Patients:https://www.[employer]/sites/default/fi les/product/documents/Fa ct_Sheet_Patients_Lyra_S ARS-CoV-2.pdf Performing Laboratory:[facility] [place] [address] [facility] ([facility])2020-09-04 12:52:00 Test Item Value Reference Range Interpretation Comments SARS-COV2/RT-PCR (test Negative Not Detected, Negative, code = 5447797) See external report for linked test SARS-COV-2 PERFORMING LAB [facility] (test code = 2325924) Negative result for this test determines that [...] 564(g) of the Act.Fact Sheet for Healthcare Providers:https://www.[employer]/sites/default/files/product/documents/Fact_Shee s_XX_Oeylugmyd_Mftq_CBTW-QiS-0.pdfFact Sheet for Healthcare Patients:https://www.[employer]/sites/default/files/product/ documents/Ybmu_Lweqh_Qgzuhsps_Lkyq_VVQP-CiD-8.pdfPerforming Laboratory:[address], [place] [address] with platelet count + automated [id number] 06:38:00 Test Item Value Reference Range Interpretation Comments WBC (test code = 6690-2) 11.4 See_Comment H [A utomated message] The system [employer] generated this result transmitted ref erence range: 3.5 - 10 .5 K/L. The refe rence range was not u sed to interpret this result as normal/abnor mal. RBC (test code = 789-8) 4.35 See_Comment [Au tomated message] The system [employer] generated this result transmitted ref erence range: 3.93 - 5 .22 M/L. The refe rence range was not u sed to interpret this result as normal/abnor mal. MCHC (test code = 786-4) 28.0 See_Comment L [A utomated message] The system [employer] generated this result transmitted ref erence range: [...] See_Comment [Aut omated message] 777-3) The system [employer] generated this result transmitted ref erence range: 150 - 45 0 K/CU MM. The referen ce range was not u sed to interpret this result as normal/abnor mal. MPV (test code = 9.0 fL 9.4-12.3 L 39419-7) nRBC (test code = 413) 0 See_Comment [Aut omated message] The system [employer] generated this result transmitted ref erence range: [...] H [Aut omated message] 670) The system [employer] generated this result transmitted ref erence range: 1.56 - 6 .13 K/L. The refe rence range was not u sed to interpret this result as normal/abnor mal. # Lymphs (test code = 2.06 See_Comment [Auto mated message] 414) The system [employer] generated this result transmitted ref erence range: 1.18 - 3 .74 K/L. The refe rence range was not u sed to interpret this result as normal/abnor mal. # Monos (test code = 0.95 See_Comment H [Autom ated message] 415) The system [employer] generated this result transmitted ref erence range: 0.24 - 0 .36 K/L. The refe rence range was not u sed to interpret this result as normal/abnor mal. # Eos (test code = 416) 0.46 See_Comment H [Au tomated message] The system [employer] generated this result transmitted ref erence range: 0.04 - 0 .36 K/L. The refe rence range was not u sed to interpret this result as normal/abnor mal. # Baso (test code = 417) 0.03 See_Comment [A utomated message] The system [employer] generated this result transmitted ref erence range: 0.01 - 0 .08 K/L. The refe rence range was not u sed to interpret this result as normal/abnor mal. Immature 1 % 0-1 Granulocytes-Relative (test code = 2801) Lab Interpretation (test Abnormal code = 11223-6) [facility] with platelet count + automated [id number] 06:38:00 Test Item Value Reference Range Interpretation Comments WBC (test code = 6690-2) 11.4 See_Comment H [A utomated message] The system [employer] generated this result transmitted ref erence range: 3.5 - 10 .5 K/L. The refe rence range was not u sed to interpret this result as normal/abnor mal. RBC (test code = 789-8) 4.35 See_Comment [Au tomated message] The system [employer] generated this result transmitted ref erence range: 3.93 - 5 .22 M/L. The refe rence range was not u sed to interpret this result as normal/abnor mal. MCHC (test code = 786-4) 28.0 See_Comment L [A utomated message] The system [employer] generated this result transmitted ref erence range: [...] code = 350 See_Comment [Aut omated message] 127-3) The system [employer] generated this result transmitted ref erence range: 150 - 45 0 K/CU MM. The referen ce range was not u sed to interpret this result as normal/abnor mal. MPV (test code = 9.0 fL 9.4-12.3 L 77639-5) nRBC (test code = 413) 0 See_Comment [Aut omated message] The system [employer] generated this result transmitted ref erence range: [...] H [Aut omated message] 670) The system [employer] generated this result transmitted ref erence range: 1.56 - 6 .13 K/L. The refe rence range was not u sed to interpret this result as normal/abnor mal. # Lymphs (test code = 2.06 See_Comment [Auto mated message] 414) The system [employer] generated this result transmitted ref erence range: 1.18 - 3 .74 K/L. The refe rence range was not u sed to interpret this result as normal/abnor mal. # Monos (test code = 0.95 See_Comment H [Autom ated message] 415) The system [employer] generated this result transmitted ref erence range: 0.24 - 0 .36 K/L. The refe rence range was not u sed to interpret this result as normal/abnor mal. # Eos (test code = 416) 0.46 See_Comment H [Au tomated message] The system [employer] generated this result transmitted ref erence range: 0.04 - 0 .36 K/L. The refe rence range was not u sed to interpret this result as normal/abnor mal. # Baso (test code = 417) 0.03 See_Comment [A utomated message] The system [employer] generated this result transmitted ref erence range: 0.01 - 0 .08 K/L. The refe rence range was not u sed to interpret this result as normal/abnor mal. Immature 1 % 0-1 Granulocytes-Relative (test code = 2801) Lab Interpretation (test Abnormal code = 94328-1) [facility] with platelet count + automated [id number] 06:38:00 Test Item Value Reference Range Interpretation Comments WBC (test code = 6690-2) 11.4 See_Comment H [A utomated message] The system [employer] generated this result transmitted ref erence range: 3.5 - 10 .5 K/L. The refe rence range was not u sed to interpret this result as normal/abnor mal. RBC (test code = 789-8) 4.35 See_Comment [Au tomated message] The system [employer] generated this result transmitted ref erence range: 3.93 - 5 .22 M/L. The refe rence range was not u sed to interpret this result as normal/abnor mal. MCHC (test code = 786-4) 28.0 See_Comment L [A utomated message] The system [employer] generated this result transmitted ref erence range: [...] See_Comment [Aut omated message] 777-3) The system [employer] generated this result transmitted ref erence range: 150 - 45 0 K/CU MM. The referen ce range was not u sed to interpret this result as normal/abnor mal. MPV (test code = 9.0 fL 9.4-12.3 L 88134-8) nRBC (test code = 413) 0 See_Comment [Aut omated message] The system [employer] generated this result transmitted ref erence range: [...] H [Aut omated message] 670) The system [employer] generated this result transmitted ref erence range: 1.56 - 6 .13 K/L. The refe rence range was not u sed to interpret this result as normal/abnor mal. # Lymphs (test code = 2.06 See_Comment [Auto mated message] 414) The system [employer] generated this result transmitted ref erence range: 1.18 - 3 .74 K/L. The refe rence range was not u sed to interpret this result as normal/abnor mal. # Monos (test code = 0.95 See_Comment H [Autom ated message] 415) The system [employer] generated this result transmitted ref erence range: 0.24 - 0 .36 K/L. The refe rence range was not u sed to interpret this result as normal/abnor mal. # Eos (test code = 416) 0.46 See_Comment H [Au tomated message] The system [employer] generated this result transmitted ref erence range: 0.04 - 0 .36 K/L. The refe rence range was not u sed to interpret this result as normal/abnor mal. # Baso (test code = 417) 0.03 See_Comment [A utomated message] The system [employer] generated this result transmitted ref erence range: 0.01 - 0 .08 K/L. The refe rence range was not u sed to interpret this result as normal/abnor mal. Immature 1 % 0-1 Granulocytes-Relative (test code = 2801) Lab Interpretation (test Abnormal code = 21908-2) [facility] W/PLT COUNT & AUTO [id number] 06:38:00 Test Item Value Reference Range Interpretation [...] PERCENT (BEAKER) (test code = 2801) Prothrombin time/[id number] 05:07:00 Test Item Value Reference Interpretation Comments [...] valves. Lab Interpretation Abnormal (test code = 72332-5) [facility]th[facility]/[id number] 05:07:00 Test Item Value Reference Interpretation Comments [...] valves. Lab Interpretation Abnormal (test code = 90620-5) [facility]th[facility] time/[id number] 05:07:00 Test Item Value Reference Interpretation Comments [...] valves. Lab Interpretation Abnormal (test code = 79667-1) [facility] HospitalPROTHROMBIN TIME/[id number] 05:07:00 Test Item Value Reference Range Interpretation Comments PROTIME (BEAKER) 19.2 seconds 11.9-14.2 H (test code = 759) INR (BEAKER) (test 1.64 See_Comment [Automat ed message] code = 370) The system [employer] generated this result transmitted ref erence range: [...] See_Comment H [A utomated message] The system [employer] generated this result transmitted ref erence range: 3.5 - 10 .5 K/L. The refe rence range was not u sed to interpret this result as normal/abnor mal. RBC (test code = 789-8) 4.36 See_Comment [Au tomated message] The system [employer] generated this result transmitted ref erence range: 3.93 - 5 .22 M/L. The refe rence range was not u sed to interpret this result as normal/abnor mal. MCHC (test code = 786-4) 28.6 See_Comment L [A utomated message] The system [employer] generated this result transmitted ref erence range: [...] See_Comment [Aut omated message] 777-3) The system [employer] generated this result transmitted ref erence range: 150 - 45 0 K/CU MM. The referen ce range was not u sed to interpret this result as normal/abnor mal. MPV (test code = 8.9 fL 9.4-12.3 L 69813-6) nRBC (test code = 413) 0 See_Comment [Aut omated message] The system [employer] generated this result transmitted ref erence range: 0 - 0 /1 00 WBC. The refere nce range was not u sed to interpret this result as normal/abnor mal. Lab Interpretation (test Abnormal code = 74672-4) [facility]2020-09-02 04:59:00 Test Item Value Reference Range Interpretation Comments WBC (test code = 6690-2) 10.9 See_Comment H [A utomated message] The system [employer] generated this result transmitted ref erence range: 3.5 - 10 .5 K/L. The refe rence range was not u sed to interpret this result as normal/abnor mal. RBC (test code = 789-8) 4.36 See_Comment [Au tomated message] The system [employer] generated this result transmitted ref erence range: 3.93 - 5 .22 M/L. The refe rence range was not u sed to interpret this result as normal/abnor mal. MCHC (test code = 786-4) 28.6 See_Comment L [A utomated message] The system [employer] generated this result transmitted ref erence range: [...] See_Comment [Aut omated message] 777-3) The system [employer] generated this result transmitted ref erence range: 150 - 45 0 K/CU MM. The referen ce range was not u sed to interpret this result as normal/abnor mal. MPV (test code = 8.9 fL 9.4-12.3 L 76659-9) nRBC (test code = 413) 0 See_Comment [Aut omated message] The system [employer] generated this result transmitted ref erence range: 0 - 0 /1 00 WBC. The refere nce range was not u sed to interpret this result as normal/abnor mal. Lab Interpretation (test Abnormal code = 66859-2) [facility]2020-09-02 04:59:00 Test Item Value Reference Range Interpretation Comments WBC (test code = 6690-2) 10.9 See_Comment H [A utomated message] The system [employer] generated this result transmitted ref erence range: 3.5 - 10 .5 K/L. The refe rence range was not u sed to interpret this result as normal/abnor mal. RBC (test code = 789-8) 4.36 See_Comment [Au tomated message] The system [employer] generated this result transmitted ref erence range: 3.93 - 5 .22 M/L. The refe rence range was not u sed to interpret this result as normal/abnor mal. MCHC (test code = 786-4) 28.6 See_Comment L [A utomated message] The system [employer] generated this result transmitted ref erence range: [...] See_Comment [Aut omated message] 777-3) The system [employer] generated this result transmitted ref erence range: 150 - 45 0 K/CU MM. The referen ce range was not u sed to interpret this result as normal/abnor mal. MPV (test code = 8.9 fL 9.4-12.3 L 23945-0) nRBC (test code = 413) 0 See_Comment [Aut omated message] The system [employer] generated this result transmitted ref erence range: 0 - 0 /1 00 WBC. The refere nce range was not u sed to interpret this result as normal/abnor mal. Lab Interpretation (test Abnormal code = 97149-2) [facility] (HEMOGRAM ONLY)2020-09-02 04:59:00 Test Item Value [...] (BEAKER) (test code = 413) U/S, CORE [id number] 08:58:00Reason for exam:->BIOPSY LEFT ILIOPSOAS MASS US VS CT [facility] VALLE : 1960 Sex: FFINAL REPORT Procedure: Ultrasound-Guided left iliopsoas/inguinal mass core biopsy Pre/post-procedure diagnosis: Left iliopsoas/inguinal mass Co Op: Abdirahman Chorpa MD Assistants: none Sedation: Moderate sedation was [...] MDReport Verified Date/Time: 09/01/2020 08:58:59 Reading Location: [facility] Diagnostic Imaging Reading Room - [facility] 1.310.12 US Core [id number] 08:58:00Interface, External Ris In - 09/01/2020 9:01 AM CDTFINAL REPORT Procedure: Ultrasound-Guided left iliopsoas/inguinal mass core biopsy Pre/post-procedure diagnosis: Left iliopsoas /inguinal mass Co Op: Abdirahman Chopra MD Assistants: none Sedation: Moderate [...] MDReport Verified Date/Time: 09/01/2020 08:58:59 Reading Location: [facility] Diagnostic Imaging Reading Room - [facility]10.12 [facility] 2020-09-01 08:58:00Interface, External Ris In - 09/01/2020 9:01 AM CDTFINAL REPORT Procedure: Ultrasound-Guided left iliopsoas/inguinal mass core biopsy Pre/post-procedure diagnosis: Left iliopsoas /inguinal mass Co Op: Abdirahman Chopra MD Assistants: none Sedation: Moderate [...] MDReport Verified Date/Time: 09/01/2020 08:58:59 Reading Location: [facility] Diagnostic Imaging Reading Room - [facility] 1310.12 [facility] 2020-09-01 08:58:00Interface, External Ris In - 09/01/2020 9:01 AM CDTFINAL REPORT Procedure: Ultrasound-Guided left iliopsoas/inguinal mass core biopsy Pre/post-procedure diagnosis: Left iliopsoas /inguinal mass Co Op: Abdirahman Chopra MD Assistants: none Sedation: Moderate [...] MDReport Verified Date/Time: 09/01/2020 08:58:59 Reading Location: [facility] Diagnostic Imaging Reading Room - [facility] 1.310.12 [facility]2020-09-01 05:07:00 Test Item Value Reference [...] 0-0 (BEAKER) (test code = 413) PROTHROMBIN TIME/[id number] 04:44:00 Test Item Value Reference Range Interpretation Comments PROTIME (BEAKER) 19.1 seconds 11.9-14.2 H (test code = 759) INR (BEAKER) (test 1.63 See_Comment [Automat ed message] code = 370) The system [employer] generated this result transmitted ref erence range: <=5.90. The reference range was not used to int erpret this result as normal/abnormal . RECOMMENDED COUMADIN/WARFARIN INR THERAPY RANGESSTANDARD DOSE: 2.0 - 3.0 Includes: PROPHYLAXIS forvenous thrombosis, systemic embolization; TREATMENT for venous thrombosis and/or pulmonary embolus.HIGH RISK: Target INR is 2.5-3.5 for patients with mechanical heart valves.Vitamin B12 and [id number] 06:16:00 Test Item Value Reference Range Interpretation Comments Vitamin B12 (test 327 pg/mL 213-816 code = 2132-9) Folate (test code = 3.70 ng/mL See_Comment L [Automa yumiko 2284-8) message] The system which generated this result transmit yumiko reference range : >=7.00. The reference range was not used to interpret this result as normal/abnormal . JESSICA (test code = JESSICA) Doffer ID - BALA Hernandez Lab Interpretation Abnormal (test code = 09447-8) [facility] and [id number] 06:16:00 Test Item Value Reference Range Interpretation Comments Vitamin B12 (test 327 pg/mL 213-816 code = 2132-9) Folate (test code = 3.70 ng/mL See_Comment L [Automa yumiko 2284-8) message] The system which generated this result transmit yumiko reference range : >=7.00. The reference range was not used to interpret this result as normal/abnormal . JESSICA (test code = JESSICA) Doffer ID - BALA Hernandez Lab Interpretation Abnormal (test code = 31770-4) [facility] and [id number] 06:16:00 Test Item Value Reference Range Interpretation Comments Vitamin B12 (test 327 pg/mL 213-816 code = 2132-9) Folate (test code = 3.70 ng/mL See_Comment L [Automa yumiko 2284-8) message] The system which generated this result transmit yumiko reference range : >=7.00. The reference range was not used to interpret this result as normal/abnormal . JESSICA (test code = JESSICA) Doffer ID - BALA Hernandez Lab Interpretation Abnormal (test code = 41611-1) [facility] AND [id number] 06:16:00 Test Item Value Reference Range Interpretation Comments VITAMIN B12 (BEAKER) 327 pg/mL 213-816 (test code = 774) FOLATE (BEAKER) 3.70 ng/mL See_Comment L [Automated message] (test code = 362) The system which generated this result transmitted ref erence range: >=7.00. The reference range was not used to interpr et this result as normal/abnormal . Doffer ID Maricruz MCKENNA MPROTHROMBIN TIME/[id number] 05:36:00 Test Item Value Reference Range Interpretation Comments PROTIME (BEAKER) 21.8 seconds 11.9-14.2 H (test code = 759) INR (BEAKER) (test 1.92 See_Comment [Automat ed message] code = 370) The system [employer] generated this result transmitted ref erence range: [...] 0-0 (BEAKER) (test code = 413) CT, [id number] 11:32:00Unlisted Reason for Exam - Click Yes and Enter Reason Below->NoWill this procedure require oral contrast?->No [facility]ENTERName: DANIEL DEL VALLE : 1960 [...] size and patent. Right lower extremity: The [employer], DFA, SFA, and popliteal arteries are patent. Trifurcation vessels are patent. Left lower extremity: The [employer], DFA, SFA, and popliteal arteries are patent. [...] MDReport Verified Date/Time: 08/30/2020 11:32:07 Reading Location: [place] [address] [address] Reading [address], CTA AAA, W/ BELLA.EXT.RUNOFF 2020-08-30 11:32:00LLE DVT, assess prior pelvic mass, please assess venous phaseAnesthesia:->None [facility] : 1960 Sex: [...] size and patent. Right lower extremity: The [employer], DFA, SFA, and popliteal arteries are patent. Trifurcation vessels are patent. Left lower extremity: The [employer], DFA, SFA, and popliteal arteries are patent. [...] MDReport Verified Date/Time: 08/30/2020 11:32:07 Reading Location: [facility] P048 Angio Body Reading Room CT abdomen/pelvis [...] size and patent. Right lower extremity: The [employer], DFA, SFA, and popliteal arteries are patent. Trifurcation vessels are patent. Left lower extremity: The [employer], DFA, SFA, and popliteal arteries are patent. [...] MDReport Verified Date/Time: 08/30/2020 11:32:07 Reading Location: [facility] P048 Angio Body Reading [facility] and [id number] 11:32:00Interface, External Ris In - 08/30/2020 11:34 [...] size and patent. Right lower extremity: The [employer], DFA, SFA, and popliteal arteries are patent. Trifurcation vessels are patent. Left lower extremity: The [employer], DFA, SFA, and popliteal arteries are patent. [...] MDReport Verified Date/Time: 08/30/2020 11:32:07 Reading Location: [place] [address] Angio Body Reading Room [facility] with IV [id number] 11:32:00Interface, External Ris In - 08/30/2020 11:34 [...] size and patent. Right lower extremity: The [employer], DFA, SFA, and popliteal arteries are patent. Trifurcation vessels are patent. Left lower extremity: The [employer], DFA, SFA, and popliteal arteries are patent. [...] MDReport Verified Date/Time: 08/30/2020 11:32:07 Reading Location: [place] [address] Angio Body Reading Room [facility] AAA and [id number] 11:32:00Interface, External Ris In - 08/30/2020 11:34 [...] size and patent. Right lower extremity: The [employer], DFA, SFA, and popliteal arteries are patent. Trifurcation vessels are patent. Left lower extremity: The [employer], DFA, SFA, and popliteal arteries are patent. [...] MDReport Verified Date/Time: 08/30/2020 11:32:07 Reading Location: [place] [address] Angio Body Reading Room [facility]pelvis with IV [id number] 11:32:00Interface, External Ris In - 08/30/2020 11:34 [...] size and patent. Right lower extremity: The [employer], DFA, SFA, and popliteal arteries are patent. Trifurcation vessels are patent. Left lower extremity: The [employer], DFA, SFA, and popliteal arteries are patent. [...] edema.No evidence remote metastatic disease. Signed: [facility] Verified Date/Time: 08/30/2020 11:32:07 Reading Location: [facility] B[facility] P048 Angio Body Reading Room [facility] AAA and [id number] 11:32:00Interface, External Ris In - 08/30/2020 11:34 [...] size and patent. Right lower extremity: The [employer], DFA, SFA, and popliteal arteries are patent. Trifurcation vessels are patent. Left lower extremity: The [employer], DFA, SFA, and popliteal arteries are patent. [...] Bull Verified Date/Time: 08/30/2020 11:32:07 Reading Location: [facility] B1 P048 Angio Body Reading Room [facility] HospitalArterial doppler leg, [id number] 09:31:54Ejection [facility] ECHO HEARTLAB MKCKESSON CPACS Left Impression1. [...] + + + + + + !Mid AGRONOMY ADVISOR ! !59.4 ! ! ! + + +-- + + + !Dist AGRONOMY ADVISOR ! !61.6 ! ! ! + + [...] Study 08/29/2020 NEELAM Age 60 Visit Number [id number] Gender Female Accession Number [id number] Date of 1960 Referring Tricia Hernandez Room Number 2546 Physician [facility] Service Manager Stacy Benitez MD RVT Physician ProcedureType of [...] + + + + + + !Mid AGRONOMY ADVISOR ! !59.4 ! ! ! + + + + + + !Dist AGRONOMY ADVISOR ! !61.6 ! ! ! + + + ---------+ + + !Prox JANETTE ! !64.3 ! ! ! + + + +---- + + !Mid JANETTE ! !80.3 ! ! ! + + + + + + !Dist JANETTE ! !67.1 ! ! ! + + + + + +[facility], [id number] 09:31:54Ejection [facility] ECHO HEARTLAB MKCKESSON [facility] Left [...] + + + + + + !Mid AGRONOMY ADVISOR ! !59.4 ! ! ! + + +-- + + + !Dist AGRONOMY ADVISOR ! !61.6 ! ! ! + + [...] Study 08/29/2020 NEELAM Age 60 Visit Number [id number] Gender Female Accession Number [id number] Date of 1960 Referring Tricia Hernandez Room Number 2546 Physician Richard [facility] And Health Service Manager Stacy Proctor Interpreting Vivek Benitez MD T [...] + + + + + + !Mid AGRONOMY ADVISOR ! !59.4 ! ! ! + + + + + + !Dist AGRONOMY ADVISOR ! !61.6 ! ! ! + + + ---------+ + + !Prox JANETTE ! !64.3 ! ! ! + + + +---- + + !Mid JANETTE ! !80.3 ! ! ! + + + + + + !Dist JANETTE ! !67.1 ! ! ! + + + + + +[facility], [id number] 09:31:54Ejection [facility] ECHO HEARTLAB MKCKESSON [facility] Left [...] + + + + + + !Mid AGRONOMY ADVISOR ! !59.4 ! ! ! + + +-- + + + !Dist AGRONOMY ADVISOR ! !61.6 ! ! ! + + [...] Lower Extremity Arterial Duplex Demographics Patient Name DEL VALLE, DANIEL Date of Study 08/29/2020 NEELAM Age 60 Visit Number [id number] Gender Female Accession Number [id number] Date of 1960 Referring Tricia Hernandez Room Number 2546 Physician Richard [facility] Health Service Manager Stacy Proctor Interpreting Vivek Benitez MD T [...] + + + + + + !Mid AGRONOMY ADVISOR ! !59.4 ! ! ! + + + + + + !Dist AGRONOMY ADVISOR ! !61.6 ! ! ! + + + ---------+ + + !Prox JANETTE ! !64.3 ! ! ! + + + +---- + + !Mid JANETTE ! !80.3 ! ! ! + + + + + + !Dist JANETTE ! !67.1 ! ! ! + + + + + +[facility] and [id number] 06:17:00 Test Item Value Reference Range Interpretation [...] mL/min/1.73 [place] [address]-9) NOT ACCURATE CREATININE CLEARANCE IN PREDICTING GLOMERULAR FILTRATION RATE . ESTIMATED GFR I S NOT APPLICABLE FOR DIALYSIS PATIEN TS. JESSICA (test code = Doffer ID - BS JESSICA) [facility] and [id number] 06:17:00 Test Item Value Reference Range Interpretation [...] mL/min/1.[place] [address]-3) NOT ACCURATE CREATININE CLEARANCE IN PREDICTING GLOMERULAR FILTRATION RATE . ESTIMATED GFR I S NOT APPLICABLE FOR DIALYSIS PATIEN TS. JESSICA (test code = Doffer ID - BS JESSICA) [facility] and [id number] 06:17:00 Test Item Value Reference Range Interpretation Comments BUN (test code = 13 mg/dL 7- 3094-0) Creatinine (test 0.72 mg/dL 0.57-1.25 code = 2160-0) BUN/Creatinine 18 For a normal ratio (test code = individua l on a 3097-3) normal diet, th e reference inter jewel for the mass ra nabil ranges between 12:1 and 20:1 ( BUN in mg/dL/creatinin e in mg/dL) EGFR (test code = 100 mL/min/1.[place] [address]-8) NOT ACCURATE CREATININE CLEARANCE IN PREDICTING GLOMERULAR FILTRATION RATE . ESTIMATED GFR I S NOT APPLICABLE FOR DIALYSIS PATIEN TS. JESSICA (test code = Doffer ID - BS JESSICA) [facility] Hospital[facility] AND [facility]ATININE W/[id number] 06:17:00 Test Item Value Reference Range Interpretation Comments BLOOD UREA NITROGEN 13 mg/dL 7- (BEAKER) (test code = 354) CREATININE (BEAKER) 0.72 mg/dL 0.57-1.25 (test code = 358) BUN/CREAT RATIO 18 For a normal (BEAKER) (test code individu al on a = 1981562469) normal diet, t he reference inter jewel for the mass ra nabil ranges between 12:1 and 20:1 (BUN i n mg/dL/creatinin e in mg/dL) EGFR (BEAKER) (test 100 mL/min/1.73 ESTIM ATED GFR IS code = 1092) sq m NOT ACCURATE CREATININE CLEARANCE IN PREDICTING GLOMERULAR FILTRATION RATE . ESTIMATED GFR I S NOT APPLICABLE FOR DIALYSIS PATIEN TS. Doffer ID - BSCBC (HEMOGRAM ONLY)2020-08-30 05:50:00 Test [...] 0-0 (BEAKER) (test code = 413) PROTHROMBIN TIME/[id number] 05:48:00 Test Item Value Reference Range Interpretation Comments PROTIME (BEAKER) 21.5 seconds 11.9-14.2 H (test code = 759) INR (BEAKER) (test 1.89 See_Comment [Automat ed message] code = 370) The system [employer] generated this result transmitted ref erence range: [...] 1.0-2.0 units/mL once daily enoxaparin Ref: CHEST 2012;141:[id number]-[id number] Lab Interpretation (test Normal code = 98096-6) [facility] HospitalHeparin Assay - Low Molecular [id number] 14:07:00 Test Item Value Reference Range Interpretation Comments Anti 10A-Lovenox (test 0.85 u/ml 0.6-2 code = 1605) JESSICA (test code = JESSICA) Anti-Factor 10-A Level (Heparin Assay for Low Molecular Weight Heparin)Monitoring Guidelines: Blood samples should be obtained 4 hours post subcutaneous injection (time of Peak level) Therapeutic Peak Levels: 0.6-1.0 units/mL twice daily enoxaparin 1.0-2.0 units/mL once daily enoxaparin Ref: CHEST 2012;141:[id number]-j95k Lab Interpretation (test Normal code = 61197-0) [facility] Hospital[facility] Assay - Low Molecular [id number] 14:07:00 Test Item Value Reference Range Interpretation Comments Anti 10A-Lovenox (test 0.85 u/ml 0.6-2 code = 1605) JESSICA (test code = JESSICA) Anti-Factor 10-A Level (Heparin Assay for Low Molecular Weight Heparin)Monitoring Guidelines: Blood samples should be obtained 4 hours post subcutaneous injection (time of Peak level) Therapeutic Peak Levels: 0.6-1.0 units/mL twice daily enoxaparin 1.0-2.0 units/mL once daily enoxaparin Ref: CHEST 2012;141:i15i-r64g Lab Interpretation (test Normal code = 61353-1) [facility] HospitalHEPARIN ASSAY - LOW MOLECULAR [id number] 14:07:00 Test Item Value Reference Range Interpretation Comments LOVENOX-ANTI 10A (BEAKER) (test 0.85 u/ml 0.60-2.00 code = 1605) Anti-Factor 10-A Level (Heparin Assay for Low Molecular Weight Heparin)Monitoring Guidelines: Blood samples should be obtained 4 hours post subcutaneous injection (time of Peak level) Therapeutic Peak Levels: 0.6-1.0 units/mL twice daily enoxaparin 1.0-2.0 units/mL once daily enoxaparinRef: CHEST 2012;141:[id number] (HEMOGRAM ONLY)2020-08-29 13:22:00 Test Item Value Reference [...] 0-0 (BEAKER) (test code = 413) PROTHROMBIN TIME/[id number] 05:41:00 Test Item Value Reference Range Interpretation Comments PROTIME (BEAKER) 17.4 seconds 11.9-14.2 H (test code = 759) INR (BEAKER) (test 1.45 See_Comment [Automat ed message] code = 370) The system [employer] generated this result transmitted ref erence range: <=5.90. The reference range was not used to int erpret this result as normal/abnormal . RECOMMENDED COUMADIN/WARFARIN INR THERAPY RANGESSTANDARD DOSE: 2.0 - 3.0 Includes: PROPHYLAXIS forvenous thrombosis, systemic embolization; TREATMENT for venous thrombosis and/or pulmonary embolus.HIGH RISK: Target INR is 2.5-3.5 for patients with mechanical heart valves.BUN AND CREATININE W/[id number] 17:04:00 Test Item Value Reference Range Interpretation Comments BLOOD UREA NITROGEN 9 mg/dL 7-21 (BEAKER) (test code = 354) CREATININE (BEAKER) 0.79 mg/dL 0.57-1.25 (test code = 358) BUN/CREAT RATIO 11 For a normal (BEAKER) (test code individu al on a = 4719584350) normal diet, t he reference inter jewel for the mass ra nabil ranges between 12:1 and 20:1 (BUN i n mg/dL/creatinin e in mg/dL) EGFR (BEAKER) (test 90 mL/min/1.73 ESTIMA YUMIKO GFR IS code = 1092) sq m NOT ACCURATE CREATININE CLEARANCE IN PREDICTING GLOMERULAR FILTRATION RATE . ESTIMATED GFR I S NOT APPLICABLE FOR DIALYSIS PATIEN TS. Doffer ID - DBVenous doppler leg, [id number] 15:52:54Ejection FractionSLEH ECHO HEARTLAB MKCKESSON CPACS Left [...] Study 08/28/2020 NEELAM Age 60 Visit Number [id number] Gender Female Accession Number [id number] Date of 1960 Referring Tricia Room Number 2902 Physician Elizabethoh Medicine And Health Service Manager Jarad Mayberry Interpreting Vivek Benitez MD RVT [...] in cm/s ; Diameters are measured in [facility] Venous doppler leg, [id number] 15:52:54Ejection FractionSLEH ECHO HEARTLAB MKCKESSON CPACS Left [...] Study 08/28/2020 NEELAM Age 60 Visit Number [id number] Gender Female Accession Number [id number] Date of 1960 Referring Tricia Hernandez Room Number 0684 Physician Richard Medicine And Health Service Manager Jarad Mayberry Interpreting Vivek Benitez MD RVT [...] in cm/s ; Diameters are measured in [facility] Venous doppler leg, [id number] 15:52:54Ejection FractionSLEH ECHO HEARTLAB MKCKESSON CPACS Left [...] Study 08/28/2020 NEELAM Age 60 Visit Number [id number] Gender Female Accession Number [id number] Date of 1960 Referring Trciia Hernandez Room Number 2415 Physician Richard Medicine And Health Service Managerhenry Mayberry Interpreting Vivek Benitez MD RVT Physician ProcedureType of Study: Veins: Lower Extremities DVT Study, VENOUS DO PPLER LEG, LEFT. Indications for Study:Pain.Patient Status:STAT.Study Location:Portable.Technical Quality:Technically Difficult. - Results were reported to:Ceci Hathaway@12:40.Risk FactorsHistory of Disease +---------+----+ +!Lililan gnosis!Date!Comments !+---------+----+ +!Other ! !Morbid Obesity 311 [...] in cm/s ; [facility] SARS-COV2/RT-PCR ([facility])2020-08-28 12:32:00 Test Item Value Reference Range Interpretation Comments SARS-COV2/RT-PCR (test Negative Not Detected, Negative, code = 9157278) See external report for linked test SARS-COV-[address] [facility] (test code = 6642191) Negative result for this test determines that [...] 564(g) of the Act.Fact Sheet for Healthcare Providers:https://www.Loftware/sites/default/files/product/documents/Fact_Shee o_UX_Sycheitqm_Khpo_NVCA-PbB-0.pdfFact Sheet for Healthcare Patients:https://www.[employer]/sites/default/files/product/ documents/Nrmf_Wfgwp_Xgtztwnf_Wsbx_LTTH-IlU-9.pdfPerforming Laboratory:[facility], [place] [address]RUCMBSTAFLZ TIME/INR 2020-08-28 05:15:00 Test Item Value Reference Range Interpretation Comments PROTIME (BEAKER) 16.1 seconds 11.9-14.2 H (test code = 759) INR (BEAKER) (test 1.31 See_Comment [Automat ed message] code = 370) The system [employer] generated this result transmitted ref erence range: [...] 0-0 (BEAKER) (test code = 413) PROTHROMBIN TIME/[id number] 16:24:00 Test Item Value Reference Range Interpretation Comments PROTIME (BEAKER) 14.7 seconds 11.9-14.2 H (test code = 759) INR (BEAKER) (test 1.20 See_Comment [Automat ed message] code = 370) The system [employer] generated this result transmitted ref erence range: [...] 0-0 (BEAKER) (test code = 413) PROTHROMBIN TIME/[id number] 14:53:00 Test Item Value Reference Range Interpretation Comments PROTIME (BEAKER) 10.1 seconds 9.8-12.0 (test code = 759) INR (BEAKER) (test 0.94 See_Comment [Automat ed message] code = 370) The system [employer] generated this result transmitted ref erence range: [...] 0-0 (BEAKER) (test code = 413) PROTHROMBIN TIME/[id number] 19:23:00 Test Item Value Reference Range Interpretation Comments PROTIME (BEAKER) 15.0 seconds 11.9-14.2 H (test code = 759) INR (BEAKER) (test 1.20 See_Comment [Automat ed message] code = 370) The system [employer] generated this result transmitted ref erence range: [...] 0-1 PERCENT (BEAKER) (test code = 2801) [id number] 07:38:00 Test Item Value Reference Range Interpretation Comments PTT (test code = 62.8 See_Comment H [Automated message] 78318-3) The system [employer] generated this result transmitted ref erence range: 22.5 - 3 6.0 seconds. The reference range was not used to int erpret this result as normal/abnormal . Lab Interpretation (test Abnormal code = 81914-9) [facility] HospitalaPTT2021-06-11 07:38:00 Test Item Value Reference Range Interpretation Comments PTT (test code = 62.8 See_Comment H [Automated message] 42993-7) The system [employer] generated this result transmitted ref erence range: 22.5 - 3 6.0 seconds. The reference range was not used to int erpret this result as normal/abnormal . Lab Interpretation (test Abnormal code = 91683-8) [facility]aPTT2021-06-11 07:38:00 Test Item Value Reference Range Interpretation Comments PTT (test code = 62.8 See_Comment H [Automated message] 95220-3) The system [employer] generated this result transmitted ref erence range: 22.5 - 3 6.0 seconds. The reference range was not used to int erpret this result as normal/abnormal . Lab Interpretation (test Abnormal code = 62049-9) [facility] HospitalAPTT2021-06-11 07:38:00 Test Item Value Reference Range Interpretation [...] WBC 0-0 (BEAKER) (test code = 413) [id number] 23:09:00 Test Item Value Reference Range Interpretation Comments PARTIAL THROMBOPLASTIN TIME 48.3 seconds 22.5-36.0 H (BEAKER) (test code = 760) [id number] 12:59:00 Test Item Value Reference Range Interpretation Comments PARTIAL THROMBOPLASTIN TIME 33.5 seconds 22.5-36.0 (BEAKER) (test code = 760) Basic Metabolic [id number] 06:56:00 Test Item Value Reference Range Interpretation Comments Sodium (test code = 140 meq/L 813-092 3558-2) Potassium (test 4.4 meq/L 3.5-5.1 code = 2823-3) Chloride (test code 100 meq/L 98-107 = 2075-0) CO2 (test code = 27 meq/L 22-29 8-9) BUN (test code = 13 mg/dL 7 3094-0) Creatinine (test 0.81 mg/dL 0.57-1.25 code = 2160-0) Glucose (test code 101 mg/dL 70-105 = 2345-7) Calcium (test code 9.7 mg/dL 8.4-10.2 = 61680-9) EGFR (test code = 87 mL/min/1.73 [place] [address]-9) NOT ACCURATE CREATININE CLEARANCE IN PREDICTING GLOMERULAR FILTRATION RATE . ESTIMATED GFR I S NOT APPLICABLE FOR DIALYSIS PATIEN JESSICA (test code = Doffer ID - JESSICA) [facility] Metabolic [id number] 06:56:00 Test Item Value Reference Range Interpretation Comments Sodium (test code = 140 meq/L 756-841 7842-2) Potassium (test 4.4 meq/L 3.5-5.1 code = 2823-3) Chloride (test code 100 meq/L 98-107 = 2075-0) CO2 (test code = 27 meq/L 2027-11) BUN (test code = 13 mg/dL 10-04 3094-0) Creatinine (test 0.81 mg/dL 0.57-1.25 code = 2160-0) Glucose (test code 101 mg/dL 70-105 = 2345-7) Calcium (test code 9.7 mg/dL 8.4-10.2 = 23090-4) EGFR (test code = 87 mL/min/1.73 [place] [address]-8) NOT ACCURATE CREATININE CLEARANCE IN PREDICTING GLOMERULAR FILTRATION RATE . ESTIMATED GFR I S NOT APPLICABLE FOR DIALYSIS PATIEN JESSICA (test code = Doffer ID - JESSICA) [facility] Metabolic [id number] 06:56:00 Test Item Value Reference Range Interpretation Comments Sodium (test code = 140 meq/L 712-467 6746-2) Potassium (test 4.4 meq/L 3.5-5.1 code = 2823-3) Chloride (test code 100 meq/L 98-107 = 2075-0) CO2 (test code = 27 meq/L -2027-9) BUN (test code = 13 mg/dL - 3094-0) Creatinine (test 0.81 mg/dL 0.57-1.25 code = 2160-0) Glucose (test code 101 mg/dL 70-105 = 2345-7) Calcium (test code 9.7 mg/dL 8.4-10.2 = 34594-7) EGFR (test code = 87 mL/min/1.[place] [address]-4) NOT ACCURATE CREATININE CLEARANCE IN PREDICTING GLOMERULAR FILTRATION RATE . ESTIMATED GFR I S NOT APPLICABLE FOR DIALYSIS PATIEN TS. JESSICA (test code = Doffer ID - JESSICA) BALA Hernandez [facility] [id number] 06:56:00 Test Item Value Reference Range Interpretation [...] 697) EGFR (BEAKER) (test 87 mL/min/1.73 ESTIMA YMUIKO GFR IS code = 1092) sq m NOT ACCURATE CREATININE CLEARANCE IN PREDICTING GLOMERULAR FILTRATION RATE . ESTIMATED GFR I S NOT APPLICABLE FOR DIALYSIS PATIEN TS. Doffer ID - BALA [facility] (HEMOGRAM ONLY)2020-08-24 06:41:00 [...] WBC 0-0 (BEAKER) (test code = 413) [id number] 06:32:00 Test Item Value Reference Range Interpretation Comments PARTIAL THROMBOPLASTIN TIME 34.7 seconds 22.5-36.0 (BEAKER) (test code = 760) [id number] 22:03:00 Test Item Value Reference Range Interpretation Comments PARTIAL THROMBOPLASTIN TIME 36.0 seconds 22.5-36.0 (BEAKER) (test code = 760) [id number] 14:36:00 Test Item Value Reference Range Interpretation [...] (BEAKER) (test code = 413) BASIC METABOLIC [id number] 05:47:00 Test Item Value Reference Range Interpretation [...] S NOT APPLICABLE FOR DIALYSIS PATIEN TS. Doffer ID - BAL [facility] (HEMOGRAM ONLY)2020-08-23 05:19:00 Test Item [...] = 413) U/S, EXTREMITY, LOWER, LEFT (NON-VASCULAR) [id number] 15:15:00Please obtain biopsy of inguinal mass. Pending discharge Reason for exam:->Large left inguinal mass / lymphadenopathy [facility] 1960 Sex: [...] MDReport Verified Date/Time: 08/22/2020 15:15:14 Reading Location: [address] Consult Reading Room US extremity non-vascular limited [id number] 15:15:00 Interface, External Ris In - 08/22/2020 [...] MDReport Verified Date/Time: 08/22/2020 15:15:14 [facility] Consult Reading Room Electronically signed by: RICK GARCIA MDon 08/22/2020 03:15 [facility] [id number] 15:15:00Interface, External Ris In - 08/22/2020 3:17 [...] Garcia Verified Date/Time: 08/22/2020 15:15:14 Reading Location: [address] Consult Reading Room Electronically signed by: Cassandra QUIJANO 08/22/2020 03:15 [facility] non- vascular limited [id number] 15:15:00Interface, External Ris In - 08/22/2020 3:17 [...] Garcia Verified Date/Time: 08/22/2020 15:15:14 Reading Location: [address] Consult Reading Room Electronically signed by: Cassandra QUIJANO 08/22/2020 03:15 [facility]OL[facility] [id number] 06:22:00 Test Item Value Reference Range Interpretation [...] S NOT APPLICABLE FOR DIALYSIS PATIEN TS. Doffer ID - BALA [facility] (HEMOGRAM ONLY)2020-08-22 05:57:00 [...] (BEAKER) (test code = 413) COMPREHENSIVE METABOLIC [id number] 07:02:00 Test Item Value Reference Range Interpretation [...] S NOT APPLICABLE FOR DIALYSIS PATIEN TS. Doffer ID - BALA MPROTHROMBIN TIME/[id number] 06:42:00 Test Item Value Reference Range Interpretation Comments PROTIME (BEAKER) 13.7 seconds 11.9-14.2 (test code = 759) INR (BEAKER) (test 1.08 See_Comment [Automat ed message] code = 370) The system [employer] generated this result transmitted ref erence range: [...] 413) RAD, SPINE, LUMBAR, 2 OR 3 [id number] 20:22:00Reason for exam:->low back pain, [facility] : 1960 Sex: [...] LEFT 2020-08-20 20:22:00Reason for exam:->knee pain, fall [facility] : 1960 Sex: [...] 2-3 VIEWS, LEFT, TO INCL PELVIS WHEN [id number] 20:22:00Reason for exam:->hip pain, fall [facility]: DANIEL DEL VALLE : 1960 [...] Date/Time: 08/20/2020 20:22:11 XR hip 2 views [id number] 20:22:00Interface, External Ris In - 08/20/2020 8:24 [...] Prateek Fung MDReport Verified Date/Time: 08/20/2020 20:22:11 [facility] [id number] 20:22:00Interface, External Ris In - 08/20/2020 8:24 [...] Prateek Fung MDRcarylort Verified Date/Time: 08/20/2020 20:22:11 [facility] left 2020-08-20 20:22:00Interface, [...] Prateek Fung MDRcarylort Verified Date/Time: 08/20/2020 20:22:11 [facility] 2 or 3 [id number] 20:22:00Interface, External Ris In - 08/20/2020 8:24 [...] Prateek Fung MDReport Verified Date/Time: 08/20/2020 20:22:11 [facility] or 3 [id number] 20:22:00Interface, External Ris In - 08/20/2020 8:24 [...] Prateek Fung MDReport Verified Date/Time: 08/20/2020 20:22:11 [facility] or 3 [id number] 20:22:00Interface, External Ris In - 08/20/2020 8:24 [...] Prateek Fung MDReport Verified Date/Time: 08/20/2020 20:22:11 [facility] left 2020-08-20 20:22:00Interface, [...] Prateek Fung MDReport Verified Date/Time: 08/20/2020 20:22:11 [facility] views [id number] 20:22:00Interface, External Ris In - 08/20/2020 8:24 [...] Prateek Fung MDReport Verified Date/Time: 08/20/2020 20:22:11 [facility] left 2020-08-20 20:22:00Interface, [...] Prateek Fung MDReport Verified Date/Time: 08/20/2020 20:22:11 [facility]2020-08-20 15:47:00 Test Item Value Reference Range Interpretation Comments LDH (test code = 2532-0) 228 U/L 125-220 H JESSICA (test code = JESSICA) Doffer ID - DB Lab Interpretation (test Abnormal code = 64053-4) [facility] 15:47:00 Test Item Value Reference Range Interpretation Comments Magnesium (test code = 2.2 mg/dL 1.6-2.6 59614-0) JESSICA (test code = JESSICA) Doffer ID - DB Lab Interpretation (test Normal code = 72261-3) [facility] 15:47:00 Test Item Value Reference Range Interpretation Comments Phosphorus (test code = 3.1 mg/dL 2.3-4.7 2777-1) JESSICA (test code = JESSICA) Doffer ID - DB Lab Interpretation (test Normal code = 83685-1) [facility] [id number] 15:47:00 Test Item Value Reference Range Interpretation Comments Uric Acid (test code = 5.1 mg/dL 2.6-7.2 3084-1) JESSICA (test code = JESSICA) Doffer ID - DB Lab Interpretation (test Normal code = 60091-5) [facility] (LDH)2020-08-20 15:47:00 Test Item Value Reference Range Interpretation Comments LDH (test code = 2532-0) 228 U/L 125-220 H JESSICA (test code = JESSICA) Doffer ID - DB Lab Interpretation (test Abnormal code = 15130-8) [facility] 15:47:00 Test Item Value Reference Range Interpretation Comments Magnesium (test code = 2.2 mg/dL 1.6-2.6 80587-4) JESSICA (test code = JESSICA) Doffer ID - DB Lab Interpretation (test Normal code = 48846-0) [facility] 15:47:00 Test Item Value Reference Range Interpretation Comments Phosphorus (test code = 3.1 mg/dL 2.3-4.7 2777-1) JSESICA (test code = JESSICA) Doffer ID - DB Lab Interpretation (test Normal code = 32629-5) [facility] [id number] 15:47:00 Test Item Value Reference Range Interpretation Comments Uric Acid (test code = 5.1 mg/dL 2.6-7.2 3084-1) JESSICA (test code = JESSICA) Doffer ID - DB Lab Interpretation (test Normal code = 73253-0) [facility] (LDH)2020-08-20 15:47:00 Test Item Value Reference Range Interpretation Comments LDH (test code = 2532-0) 228 U/L 125-220 H JESSICA (test code = JESSICA) Doffer ID - DB Lab Interpretation (test Abnormal code = 96991-5) [facility] 15:47:00 Test Item Value Reference Range Interpretation Comments Magnesium (test code = 2.2 mg/dL 1.6-2.6 92253-0) JESSICA (test code = JESSICA) Doffer ID - DB Lab Interpretation (test Normal code = 10860-2) [facility] 15:47:00 Test Item Value Reference Range Interpretation Comments Phosphorus (test code = 3.1 mg/dL 2.3-4.7 2777-1) JESSICA (test code = JESSICA) Doffer ID - DB Lab Interpretation (test Normal code = 68511-2) [facility] [id number] 15:47:00 Test Item Value Reference Range Interpretation Comments Uric Acid (test code = 5.1 mg/dL 2.6-7.2 3084-1) JESSICA (test code = JESSICA) Doffer ID - DB Lab Interpretation (test Normal code = 99238-9) [facility] [id number] 15:47:00 Test Item Value Reference Range Interpretation [...] S NOT APPLICABLE FOR DIALYSIS PATIEN TS. Doffer ID - [id number] 15:47:00 Test Item Value Reference Range Interpretation Comments MAGNESIUM (BEAKER) (test code = 2.2 mg/dL 1.6-2.6 627) Doffer ID - [id number] 15:47:00 Test Item Value Reference Range Interpretation Comments PHOSPHORUS (BEAKER) (test code = 3.1 mg/dL 2.3-4.7 604) Doffer ID - DBURIC [id number] 15:47:00 Test Item Value Reference Range Interpretation Comments URIC ACID (BEAKER) (test code = 5.1 mg/dL 2.6-7.2 773) Doffer ID - DBLACTATE DEHYDROGENASE (LDH)2020-08-20 15:47:00 Test Item Value Reference Range Interpretation Comments LACTATE DEHYDROGENASE (BEAKER) (test 228 U/L 125-220 H code = 635) Doffer ID - DBCBC W/PLT COUNT & AUTO [id number] 15:26:00 Test Item Value Reference Range Interpretation [...] (test code = 2801) AFB CULTURE + [id number] 17:40:00 Test Item Value Reference Range Interpretation Comments CULTURE (BEAKER) (test No acid-fast bacilli code = 1095) isolated in 42 days AFB SMEAR (BEAKER) No acid fast bacilli (test code = 994) seen AFB CULTURE + [id number] 16:47:00 Test Item Value Reference Range Interpretation Comments CULTURE (BEAKER) (test No acid-fast bacilli code = 1095) isolated in 42 days AFB SMEAR (BEAKER) No acid fast bacilli (test code = 994) seen FUNGUS CULTURE + [id number] 17:06:00 Test Item Value Reference Range Interpretation Comments CULTURE (BEAKER) (test No fungus isolated in code = 1095) 28 days FUNGUS SMEAR (BEAKER) No fungi seen (test code = 1406) FUNGUS CULTURE + [id number] 20:59:00 Test Item Value Reference Range Interpretation Comments CULTURE (BEAKER) (test No fungus isolated in code = 1095) 28 days FUNGUS SMEAR (BEAKER) No fungi seen (test code = 1406) POCT-GLUCOSE [id number] 17:00:00 Test Item Value Reference Range Interpretation Comments POC-GLUCOSE METER 193 mg/dL 70-110 H TESTED AT [facility] [address] (BEAKER) (test code [employer] [facility] = 1538) [place] [address] POCT-GLUCOSE [id number] 11:50:00 Test Item Value Reference Range Interpretation Comments POC-GLUCOSE METER 185 mg/dL 70-110 H TESTED AT [facility] [address] (BEAKER) (test code [employer] [facility] = 1538) [place] [address] CBC W/PLT COUNT & AUTO [id number] 09:22:00 Test Item Value Reference Range Interpretation [...] (BEAKER) (test code = 2801) BASIC METABOLIC [id number] 09:21:00 Test Item Value Reference Range Interpretation [...] NOT APPLICABLE FOR DIALYSIS PATIEN TS. C-REACTIVE [id number] 09:21:00 Test Item Value Reference Range Interpretation Comments C-REACTIVE PROTEIN (BEAKER) (test 2.31 mg/dL 0.00-0.50 H code = 676) HEPATIC FUNCTION [id number] 09:20:00 Test Item Value Reference Range Interpretation [...] code = 47 U/L 6-50 347) POCT-GLUCOSE [id number] 06:53:00 Test Item Value Reference Range Interpretation Comments POC-GLUCOSE METER 102 mg/dL 70-110 TESTED AT [facility] [address] ([facility]) (test code [facility] = 1538) [place] [address] POCT-GLUCOSE [id number] 21:32:00 Test Item Value Reference Range Interpretation Comments POC-GLUCOSE METER 212 mg/dL 70-110 H TESTED AT [facility] [address] ([facility]) (test code [facility] = [address]38) [place] [address] POCT-GLUCOSE [id number] 16:26:00 Test Item Value Reference Range Interpretation Comments POC-GLUCOSE METER 170 mg/dL 70-110 H TESTED AT [facility] [address] ([facility]) (test code [facility] = 1538) [place] [address] POCT-GLUCOSE [id number] 05:53:00 Test Item Value Reference Range Interpretation Comments POC-GLUCOSE METER 90 mg/dL 70-110 TESTED AT [facility] [address] ([facility]) (test code = [facility] 1538) [place] [address] POCT-GLUCOSE [id number] 21:52:00 Test Item Value Reference Range Interpretation Comments POC-GLUCOSE METER 130 mg/dL 70-110 H TESTED AT [facility] [address] ([facility]) (test code [facility] = 1538) [place] [address] POCT-GLUCOSE [id number] 17:16:00 Test Item Value Reference Range Interpretation Comments POC-GLUCOSE METER 177 mg/dL 70-110 H TESTED AT [facility] [address] ([facility]) (test code [facility] = 1538) [place] [address] [id number] 16:02:00 Test Item Value Reference Range Interpretation Comments POTASSIUM ([facility]) (test code = 3.9 meq/L 3.5-5.5 379) POCT-GLUCOSE [id number] 12:10:00 Test Item Value Reference Range Interpretation Comments POC-GLUCOSE METER 176 mg/dL 70-110 H TESTED AT [facility] [address] ([facility]) (test code [facility] = 1538) [place] [address] POCT-GLUCOSE [id number] 05:57:00 Test Item Value Reference Range Interpretation Comments POC-GLUCOSE METER 113 mg/dL 70-110 H TESTED AT [facility] [address] (BEAKER) (test code [facility] = 1538) [place] [address] POCT-GLUCOSE [id number] 21:53:00 Test Item Value Reference Range Interpretation Comments POC-GLUCOSE METER 160 mg/dL 70-110 H TESTED AT [facility] [address] (BEAKER) (test code [facility] = 1538) [place] [address] POCT-GLUCOSE [id number] 16:49:00 Test Item Value Reference Range Interpretation Comments POC-GLUCOSE METER 158 mg/dL 70-110 H TESTED AT [facility] [address] (BEAKER) (test code [facility] = 1538) [place] [address] POCT-GLUCOSE [id number] 12:14:00 Test Item Value Reference Range Interpretation Comments POC-GLUCOSE METER 162 mg/dL 70-110 H TESTED AT [facility] [address] (BEAKER) (test code [facility] = 1538) [place] [address] BASIC METABOLIC [id number] 04:57:00 Test Item Value Reference Range Interpretation [...] PATIEN TS. CBC W/PLT COUNT & AUTO [id number] 04:28:00 Test Item Value Reference Range Interpretation [...] BASOPHILS ABSOLUTE 0.01 K/ L 0.00-0.20 COUNT ([facility]) (test code = 417) IMMATURE 1 % 0-0 H GRANULOCYTES-RELATIVE PERCENT ([facility]) (test code = 2801) POCT-GLUCOSE [id number] 20:44:00 Test Item Value Reference Range Interpretation Comments POC-GLUCOSE METER 168 mg/dL 70-110 H TESTED AT [facility] [address] ([facility]) (test code [facility] = 1538) [place] [address] POCT-GLUCOSE [id number] 16:10:00 Test Item Value Reference Range Interpretation Comments POC-GLUCOSE METER 228 mg/dL 70-110 H TESTED AT [facility] [address] ([facility]) (test code [email or web address] [facility] = 1538) [place] [address] POCT-GLUCOSE [id number] 13:15:00 Test Item Value Reference Range Interpretation Comments POC-GLUCOSE METER 182 mg/dL 70-110 H TESTED AT [facility] [address] ([facility]) (test code [employer] [facility] = 1538) [place] [address] POCT-GLUCOSE [id number] 06:57:00 Test Item Value Reference Range Interpretation Comments POC-GLUCOSE METER 153 mg/dL 70-110 H TESTED AT [facility] [address] ([facility]) (test code [employer] [facility] = 1538) [place] [address] POCT-GLUCOSE [id number] 21:27:00 Test Item Value Reference Range Interpretation Comments POC-GLUCOSE METER 146 mg/dL 70-110 H TESTED AT [facility] [address] ([facility]) (test code [employer] [facility] = 1538) [place] [address] POCT-GLUCOSE [id number] 17:17:00 Test Item Value Reference Range Interpretation Comments POC-GLUCOSE METER 134 mg/dL 70-110 H TESTED AT [facility] [address] ([facility]) (test code [employer] [facility] = 1538) [place] [address] POCT-GLUCOSE [id number] 13:49:00 Test Item Value Reference Range Interpretation Comments POC-GLUCOSE METER 177 mg/dL 70-110 H TESTED AT [facility] [address] ([facility]) (test code [employer] [facility] = 1538) [place] [address] POCT-GLUCOSE [id number] 05:34:00 Test Item Value Reference Range Interpretation Comments POC-GLUCOSE METER 118 mg/dL 70-110 H TESTED AT [facility] [address] (BEAKER) (test code [facility] = 1538) [place] [address] POCT-GLUCOSE [id number] 21:14:00 Test Item Value Reference Range Interpretation Comments POC-GLUCOSE METER 149 mg/dL 70-110 H TESTED AT [facility] [address] (BEAKER) (test code [facility] = 1538) [place] [address] POCT-GLUCOSE [id number] 17:44:00 Test Item Value Reference Range Interpretation Comments POC-GLUCOSE METER 132 mg/dL 70-110 H TESTED AT [facility] [address] (BEAKER) (test code [facility] = 1538) [place] [address] POCT-GLUCOSE [id number] 12:21:00 Test Item Value Reference Range Interpretation Comments POC-GLUCOSE METER 168 mg/dL 70-110 H TESTED AT [facility] [address] (BEAKER) (test code [facility] = 1538) [place] [address] [id number] 05:19:00 Test Item Value Reference Range Interpretation Comments PARTIAL THROMBOPLASTIN TIME 84.3 seconds 23.2-36.1 H (BEAKER) (test code = 760) POCT-GLUCOSE [id number] 20:50:00 Test Item Value Reference Range Interpretation Comments POC-GLUCOSE METER 147 mg/dL 70-110 H TESTED AT [facility] [address] (BEAKER) (test code [facility] = 1538) [place] [address] POCT-GLUCOSE [id number] 17:19:00 Test Item Value Reference Range Interpretation Comments POC-GLUCOSE METER 238 mg/dL 70-110 H TESTED AT [facility] [address] (BEAKER) (test code [facility] = 1538) [place] [address] [id number] 15:09:00 Test Item Value Reference Range Interpretation Comments PARTIAL THROMBOPLASTIN TIME 74.8 seconds 23.2-36.1 H (BEAKER) (test code = 760) POCT-GLUCOSE [id number] 11:57:00 Test Item Value Reference Range Interpretation Comments POC-GLUCOSE METER 146 mg/dL 70-110 H TESTED AT [facility] [address] (BEAKER) (test code [facility] = 1538) [place] [address] POCT-GLUCOSE [id number] 05:37:00 Test Item Value Reference Range Interpretation Comments POC-GLUCOSE METER 139 mg/dL 70-110 H TESTED AT [facility] [address] (BEAKER) (test code [facility] = 1538) [place] [address] BASIC METABOLIC [id number] 04:04:00 Test Item Value Reference Range Interpretation [...] S NOT APPLICABLE FOR DIALYSIS PATIEN TS. [id number] 04:02:00 Test Item Value Reference Range Interpretation Comments PARTIAL THROMBOPLASTIN TIME 76.5 seconds 23.2-36.1 H (BEAKER) (test code = 760) CBC W/PLT COUNT & AUTO [id number] 03:41:00 Test Item Value Reference Range Interpretation [...] PERCENT (BEAKER) (test code = 2801) POCT-GLUCOSE [id number] 22:12:00 Test Item Value Reference Range Interpretation Comments POC-GLUCOSE METER 247 mg/dL 70-110 H TESTED AT [facility] [address] (BEAKER) (test code [facility] = 1538) [place] [address] [id number] 21:11:00 Test Item Value Reference Range Interpretation Comments PARTIAL THROMBOPLASTIN TIME 62.4 seconds 23.2-36.1 H (BEAKER) (test code = 760) [id number] 12:45:00 Test Item Value Reference Range Interpretation Comments PARTIAL THROMBOPLASTIN TIME 101.2 seconds 23.2-36.1 H (BEAKER) (test code = 760) POCT-GLUCOSE [id number] 11:48:00 Test Item Value Reference Range Interpretation Comments POC-GLUCOSE METER 259 mg/dL 70-[address] [place] [address] [address] (BEAKER) (test code [facility] = 1538) [place] [address] POCT-GLUCOSE [id number] 05:38:00 Test Item Value Reference Range Interpretation Comments POC-GLUCOSE METER 121 mg/dL 70-[address] [place] [address] [address] (BEAKER) (test code [facility] = 1538) [place] [address] [id number] 05:33:00 Test Item Value Reference Range Interpretation Comments PARTIAL THROMBOPLASTIN TIME 108.5 seconds 23.2-36.1 H (BEAKER) (test code = 760) POCT-GLUCOSE [id number] 20:59:00 Test Item Value Reference Range Interpretation Comments POC-GLUCOSE METER 197 mg/dL 70-110 [place] [address] [address] (BEAKER) (test code [facility] = 1538) [place] [address] POCT-GLUCOSE [id number] 16:47:00 Test Item Value Reference Range Interpretation Comments POC-GLUCOSE METER 150 mg/dL 70-[place] [address] [address] (BEAKER) (test code [facility] = 1538) [place] [address] [id number] 15:21:00 Test Item Value Reference Range Interpretation Comments PARTIAL THROMBOPLASTIN TIME 79.9 seconds 23.2-36.1 H (BEAKER) (test code = 760) POCT-GLUCOSE [id number] 12:52:00 Test Item Value Reference Range Interpretation Comments POC-GLUCOSE METER 207 mg/dL 70-110 H TESTED AT [facility] [address] (BEAKER) (test code [facility] = 1538) [place] [address] [id number] 09:17:00 Test Item Value Reference Range Interpretation Comments PARTIAL THROMBOPLASTIN TIME 95.7 seconds 23.2-36.1 H (BEAKER) (test code = 760) BASIC METABOLIC [id number] 02:36:00 Test Item Value Reference Range Interpretation [...] S NOT APPLICABLE FOR DIALYSIS PATIEN TS. [id number] 02:26:00 Test Item Value Reference Range Interpretation Comments PARTIAL THROMBOPLASTIN TIME 104.6 seconds 23.2-36.1 H (BEAKER) (test code = 760) CBC W/PLT COUNT & AUTO [id number] 02:18:00 Test Item Value Reference Range Interpretation [...] PERCENT (BEAKER) (test code = 2801) POCT-GLUCOSE [id number] 22:17:00 Test Item Value Reference Range Interpretation Comments POC-GLUCOSE METER 211 mg/dL 70-110 H TESTED AT [facility] [address] (BEAKER) (test code [facility] = 1538) [place] [address] [id number] 20:16:00 Test Item Value Reference Range Interpretation Comments PARTIAL THROMBOPLASTIN TIME 107.2 seconds 23.2-36.1 H (BEAKER) (test code = 760) POCT-GLUCOSE [id number] 16:24:00 Test Item Value Reference Range Interpretation Comments POC-GLUCOSE METER 167 mg/dL 70-110 H TESTED AT [facility] [address] (BEAKER) (test code [facility] = 1538) [place] [address] [id number] 14:17:00 Test Item Value Reference Range Interpretation Comments PARTIAL THROMBOPLASTIN TIME 96.3 seconds 23.2-36.1 H (BEAKER) (test code = 760) POCT-GLUCOSE [id number] 11:40:00 Test Item Value Reference Range Interpretation Comments POC-GLUCOSE METER 190 mg/dL 70-110 H TESTED AT [facility] [address] (BEAKER) (test code [facility] = 1538) [place] [address] [id number] 07:52:00 Test Item Value Reference Range Interpretation Comments PARTIAL THROMBOPLASTIN TIME 58.0 seconds 23.2-36.1 H (BEAKER) (test code = 760) BASIC METABOLIC [id number] 06:09:00 Test Item Value Reference Range Interpretation [...] S NOT APPLICABLE FOR DIALYSIS PATIEN TS. [id number] 05:53:00 Test Item Value Reference Range Interpretation Comments PARTIAL THROMBOPLASTIN TIME 138.1 seconds 23.2-36.1 H (BEAKER) (test code = 760) CBC W/PLT COUNT & AUTO [id number] 05:45:00 Test Item Value Reference Range Interpretation [...] GRANULOCYTES-RELATIVE PERCENT (BEAKER) (test code = 2801) [id number] 23:56:00 Test Item Value Reference Range Interpretation Comments PARTIAL THROMBOPLASTIN TIME 96.6 seconds 23.2-36.1 H (BEAKER) (test code = 760) POCT-GLUCOSE [id number] 21:22:00 Test Item Value Reference Range Interpretation Comments POC-GLUCOSE METER 160 mg/dL 70-110 H TESTED AT [facility] [address] (BEAKER) (test code [facility] = 1538) [place] [address] POCT-GLUCOSE [id number] 17:27:00 Test Item Value Reference Range Interpretation Comments POC-GLUCOSE METER 151 mg/dL 70-110 H TESTED AT [facility] [address] (BEAKER) (test code [facility] = 1538) [place] [address] [id number] 16:40:00 Test Item Value Reference Range Interpretation Comments PARTIAL THROMBOPLASTIN TIME 40.0 seconds 23.2-36.1 H (BEAKER) (test code = 760) POCT-GLUCOSE [id number] 13:43:00 Test Item Value Reference Range Interpretation Comments POC-GLUCOSE METER 164 mg/dL 70-110 H TESTED AT [facility] [address] (BEAKER) (test code [facility] = 1538) [place] [address] [id number] 13:34:00 Test Item Value Reference Range Interpretation Comments PARTIAL THROMBOPLASTIN TIME 141.6 seconds 23.2-36.1 H (BEAKER) (test code = 760) OCCULT BLOOD, [id number] 13:20:00 Test Item Value Reference Range Interpretation Comments FECAL OCCULT BLOOD (BEAKER) (test Negative Negative code = 618) BASIC METABOLIC [id number] 12:13:00 Test Item Value Reference Range Interpretation [...] APPLICABLE FOR DIALYSIS PATIEN TS. HEPATIC FUNCTION [id number] 12:13:00 Test Item Value Reference Range Interpretation [...] 6-50 347) CBC W/PLT COUNT & AUTO [id number] 11:47:00 Test Item Value Reference Range Interpretation [...] GRANULOCYTES-RELATIVE PERCENT (BEAKER) (test code = 2801) [id number] 06:33:00 Test Item Value Reference Range Interpretation Comments PARTIAL THROMBOPLASTIN TIME 102.3 seconds 23.2-36.1 H (BEAKER) (test code = 760) POCT-GLUCOSE [id number] 05:47:00 Test Item Value Reference Range Interpretation Comments POC-GLUCOSE METER 151 mg/dL 70-110 H TESTED AT [facility] [address] (BEAKER) (test code [facility] = 1538) [place] [address] BASIC METABOLIC [id number] 01:16:00 Test Item Value Reference Range Interpretation [...] S NOT APPLICABLE FOR DIALYSIS PATIEN TS. [id number] 01:06:00 Test Item Value Reference Range Interpretation Comments PARTIAL THROMBOPLASTIN TIME 46.8 seconds 23.2-36.1 H (BEAKER) (test code = 760) [id number] 23:18:00 Test Item Value Reference Range Interpretation Comments PARTIAL THROMBOPLASTIN TIME 177.9 seconds 23.2-36.1 HH (BEAKER) (test code = 760) POCT-GLUCOSE [id number] 22:05:00 Test Item Value Reference Range Interpretation Comments POC-GLUCOSE METER 204 mg/dL 70-110 H TESTED AT [facility] [address] (BEAKER) (test code [facility] = 1538) [place] [address] [id number] 16:35:00 Test Item Value Reference Range Interpretation Comments PARTIAL THROMBOPLASTIN TIME 47.9 seconds 23.2-36.1 H (BEAKER) (test code = 760) POCT-GLUCOSE [id number] 16:33:00 Test Item Value Reference Range Interpretation Comments POC-GLUCOSE METER 167 mg/dL 70-110 H TESTED AT [facility] [address] (BEAKER) (test code [facility] = 1538) [place] [address] [id number] 15:11:00 Test Item Value Reference Range Interpretation Comments PARTIAL THROMBOPLASTIN TIME 198.7 seconds 23.2-36.1 HH (BEAKER) (test code = 760) POCT-GLUCOSE [id number] 12:08:00 Test Item Value Reference Range Interpretation Comments POC-GLUCOSE METER 166 mg/dL 70-110 H TESTED AT [facility] [address] (BEAKER) (test code [facility] = 1538) [place] [address] [id number] 07:27:00 Test Item Value Reference Range Interpretation Comments PARTIAL THROMBOPLASTIN TIME 65.6 seconds 23.2-36.1 H (BEAKER) (test code = 760) [id number] 05:59:00 Test Item Value Reference Range Interpretation Comments PARTIAL THROMBOPLASTIN TIME 156.1 seconds 23.2-36.1 HH (BEAKER) (test code = 760) BASIC METABOLIC [id number] 05:54:00 Test Item Value Reference Range Interpretation [...] NOT APPLICABLE FOR DIALYSIS PATIEN TS. POCT-GLUCOSE [id number] 05:45:00 Test Item Value Reference Range Interpretation Comments POC-GLUCOSE METER 145 mg/dL 70-110 H TESTED AT [facility] [address] (BEAKER) (test code [facility] = 1538) [place] [address] CBC W/PLT COUNT & AUTO [id number] 05:36:00 Test Item Value Reference Range Interpretation [...] PERCENT (BEAKER) (test code = 2801) POCT-GLUCOSE [id number] 20:29:00 Test Item Value Reference Range Interpretation Comments POC-GLUCOSE METER 128 mg/dL 70-110 H TESTED AT [facility] [address] ([facility]) (test code [facility] = 1538) [place] [address] POCT-GLUCOSE [id number] 16:58:00 Test Item Value Reference Range Interpretation Comments POC-GLUCOSE METER 160 mg/dL 70-110 H TESTED AT [facility] [address] ([facility]) (test code [facility] = 1538) [place] [address] POCT-GLUCOSE [id number] 11:58:00 Test Item Value Reference Range Interpretation Comments POC-GLUCOSE METER 163 mg/dL 70-110 H TESTED AT [facility] [address] ([facility]) (test code [facility] = 1538) [place] [address] [id number] 05:25:00 Test Item Value Reference Range Interpretation Comments PARTIAL THROMBOPLASTIN TIME 79.6 seconds 23.2-36.1 H (BEAKER) (test code = 760) CBC W/PLT COUNT & AUTO [id number] 05:18:00 Test Item Value Reference Range Interpretation Comments WHITE BLOOD CELL COUNT 18.5 K/ L 4.0-10.0 H (BEAKER) (test code = 775) RED BLOOD CELL COUNT 3.59 M/ L 4.00-5.00 L (AKER) (test code = 761) HEMOGLOBIN (BEAKER) 9.7 [...] GRANULOCYTES-RELATIVE PERCENT (BEAKER) (test code = 2801) [id number] 21:47:00 Test Item Value Reference Range Interpretation Comments PARTIAL THROMBOPLASTIN TIME 85.4 seconds 23.2-36.1 H (BEAKER) (test code = 760) POCT-GLUCOSE [id number] 16:24:00 Test Item Value Reference Range Interpretation Comments POC-GLUCOSE METER 189 mg/dL 70-110 H TESTED AT [facility] [address] ([facility]) (test code [facility] = 1538) [place] [address] [id number] 13:02:00 Test Item Value Reference Range Interpretation Comments PARTIAL THROMBOPLASTIN TIME 51.8 seconds 23.2-36.1 H (BEAKER) (test code = 760) POCT-GLUCOSE [id number] 11:41:00 Test Item Value Reference Range Interpretation Comments POC-GLUCOSE METER 169 mg/dL 70-110 H TESTED AT [facility] [address] ([facility]) (test code [facility] = 1538) [place] [address] VITAMIN D, [id number] 08:15:00 Test Item Value Reference Range Interpretation Comments VITAMIN D 25-OH (BEAKER) (test code 5.4 ng/mL 6.6-49.9 L = 2764) Effective 12/25/2016: Reference Range ChangeNew: 6.6-49.9 ng/mL Previous: 13.0-47.8 ng/mLRecommended Vitamin D Target Range: 30.0-40.0 ng/mLPOCT-GLUCOSE [id number] 06:20:00 Test Item Value Reference Range Interpretation Comments POC-GLUCOSE METER 158 mg/dL 70-110 H TESTED AT [facility] [address] ([facility]) (test code [facility] = 1538) [place] [address] HEPATIC FUNCTION [id number] 05:45:00 Test Item Value Reference Range Interpretation Comments TOTAL PROTEIN (BEAKER) 6.5 gm/dL 6.0-8.5 Speci men markedly (test code = 770) hemolyzed ALBUMIN (BEAKER) (test 1.8 g/dL 3.5-5.0 L Speci men markedly code = 1145) hemolyzed BILIRUBIN TOTAL 1.2 mg/dL 0.1-1.3 Specimen mar kedly (BEAKER) (test code = hemoly zed 377) BILIRUBIN DIRECT 0.1 mg/dL 0.0-0.5 Specimen ma ronaldoedly (BEAKER) (test code = hemoly zed 706) ALKALINE PHOSPHATASE 142 U/L 30-115 H (BEAKER) (test code = 346) AST (SGOT) (BEAKER) 49 U/L 5-40 H Specimen markedly (test code = 353) hemolyzed ALT (SGPT) (BEAKER) 28 U/L 6-50 Specimen markedly (test code = 347) hemolyzed [id number] 05:30:00 Test Item Value Reference Range Interpretation Comments PARTIAL THROMBOPLASTIN TIME 63.3 seconds 23.2-36.1 H (BEAKER) (test code = 760) Prior to initiating heparinCBC W/PLT COUNT & AUTO [id number] 05:23:00 Test Item Value Reference Range Interpretation [...] GRANULOCYTES-RELATIVE PERCENT (BEAKER) (test code = 2801) [id number] 00:59:00 Test Item Value Reference Range Interpretation Comments PARTIAL THROMBOPLASTIN TIME 62.3 seconds 23.2-36.1 H (BEAKER) (test code = 760) POCT-GLUCOSE [id number] 21:34:00 Test Item Value Reference Range Interpretation Comments POC-GLUCOSE METER 196 mg/dL 70-110 H TESTED AT [facility] [address] (BEAKER) (test code [facility] = 1538) [place] [address] [id number] 18:14:00 Test Item Value Reference Range Interpretation Comments PARTIAL THROMBOPLASTIN TIME 82.3 seconds 23.2-36.1 H (BEAKER) (test code = 760) POCT-GLUCOSE [id number] 17:01:00 Test Item Value Reference Range Interpretation Comments POC-GLUCOSE METER 192 mg/dL 70-110 H TESTED AT [facility] [address] (BEAKER) (test code [facility] = 1538) [place] [address] POCT-GLUCOSE [id number] 13:29:00 Test Item Value Reference Range Interpretation Comments POC-GLUCOSE METER 207 mg/dL 70-110 H TESTED AT [facility] [address] (BEAKER) (test code [facility] = 1538) [place] [address] [id number] 12:48:00 Test Item Value Reference Range Interpretation Comments PARTIAL THROMBOPLASTIN TIME 63.3 seconds 23.2-36.1 H (BEAKER) (test code = 760) CBC W/PLT COUNT & AUTO [id number] 12:25:00 Test Item Value Reference Range Interpretation [...] IMMATURE 2 % 0-0 H GRANULOCYTES-RELATIVE PERCENT (AKER) (test code = 2801) POCT-GLUCOSE [id number] 06:40:00 Test Item Value Reference Range Interpretation Comments POC-GLUCOSE METER 166 mg/dL 70-110 H TESTED AT [facility] [address] ([facility]) (test code [facility] = 1538) [place] [address] BUN AND [id number] 06:07:00 Test Item Value Reference Range Interpretation Comments BLOOD UREA NITROGEN 15 mg/dL 10-26 (BEAKER) (test code = 354) CREATININE (AKER) 0.62 mg/dL 0.50-1.20 (test code = 358) EGFR ([facility]) (test 120 mL/min/1.73 ESTIM ATED GFR IS code = 1092) sq m NOT ACCURATE CREATININE CLEARANCE IN PREDICTING GLOMERULAR FILTRATION RATE . ESTIMATED GFR I S NOT APPLICABLE FOR DIALYSIS PATIEN TS. Please draw first BUN/ S Creat with the 12 noon Amikacin Blood level draw. Thank [id number] 05:48:00 Test Item Value Reference Range Interpretation Comments PARTIAL THROMBOPLASTIN TIME 60.0 seconds 23.2-36.1 H ([facility]) (test code = 760) ANTI-NUCLEAR ANTIBODY (TAMMI)2017-11-20 00:24:00 Test Item Value Reference Range Interpretation Comments ANTI-NUCLEAR ANTIBODY (TAMMI) (BEAKER) Negative Negative (test code = 418) Test performed by IFA method.Test performed by IFA method.[id number] 23:01:00 Test Item Value Reference Range Interpretation Comments PARTIAL THROMBOPLASTIN TIME 58.3 seconds 23.2-36.1 H (AKER) (test code = 760) POCT-GLUCOSE [id number] 21:22:00 Test Item Value Reference Range Interpretation Comments POC-GLUCOSE METER 171 mg/dL 70-110 H TESTED AT [facility] [address] ([facility] (test code [facility] = 1538) [place] [address] POCT-GLUCOSE [id number] 16:54:00 Test Item Value Reference Range Interpretation Comments POC-GLUCOSE METER 135 mg/dL 70-110 H TESTED AT [facility] [address] (BEAKER) (test code [facility] = 1538) [place] [address] PERIPHERAL BLOOD SMEAR - PATHOLOGIST [id number] 15:35:00 Test Item Value Reference Range Interpretation Comments PERIPHERAL SMR REVIEW Neutrophilic (BEAKER) (test code = leukocytosis with 2640) increased band forms and unremarkable WBC morphology. Normocytic anemia with unremarkable RBCs. Platelets unremarkable. No dysmorphic or blast forms seen. [id number] Nazario Becker M.D. (BEAKER) (test code = (electronic signature) 1309) (MANUAL DIFFERENTIAL)2017-11-19 15:31:00 Test Item Value Reference [...] (BEAKER) (test code = 1+ few 480) [id number] 15:21:00 Test Item Value Reference Range Interpretation Comments PARTIAL THROMBOPLASTIN TIME 39.3 seconds 23.2-36.1 H (BEAKER) (test code = 760) POCT-GLUCOSE [id number] 13:08:00 Test Item Value Reference Range Interpretation Comments POC-GLUCOSE METER 140 mg/dL 70-110 H TESTED AT [facility] [address] (BEAKER) (test code [facility] = 1538) [place] [address] CBC W/PLT COUNT & AUTO [id number] 09:33:00 Test Item Value Reference Range Interpretation [...] (BEAKER) (test code = 413) BUN AND [id number] 08:45:00 Test Item Value Reference Range Interpretation [...] 12 noon Amikacin Blood level draw. Thank [id number] 08:27:00 Test Item Value Reference Range Interpretation Comments PARTIAL THROMBOPLASTIN TIME 29.5 seconds 23.2-36.1 (BEAKER) (test code = 760) POCT-GLUCOSE [id number] 04:48:00 Test Item Value Reference Range Interpretation Comments POC-GLUCOSE METER 142 mg/dL 70-110 H TESTED AT [facility] [address] ([facility]) (test code [facility] = 1538) [place] [address] RHEUMATOID FACTOR AB, REFLEX TO [id number] 01:10:00 Test Item Value Reference Range Interpretation Comments RHEUMATOID FACTOR (BEAKER) (test Negative code = 573) [id number] 00:56:00 Test Item Value Reference Range Interpretation Comments PROTIME (BEAKER) (test code = 17.9 seconds 11.8-14.4 H 759) INR (BEAKER) (test code = 370) 1.4 1.2-1.5 PARTIAL THROMBOPLASTIN TIME 48.9 seconds 23.2-36.1 H (BEAKER) (test code = 760) RECOMMENDED COUMADIN/WARFARIN INR THERAPY RANGESSTANDARD DOSE: 2.0 - 3.0 Includes: PROPHYLAXIS forvenous thrombosis, systemic embolization; TREATMENT for venous thrombosis and/or pulmonary embolus.HIGH RISK: Target INR is 2.5-3.5 for patients with mechanical heart valves.VENOUS DOPPLER LEGS, [id number] 22:05:00Reason for exam:->leukocytosis persistentFINAL REPORT CLINICAL HISTORY: [...] MDReport Verified Date/Time: 11/18/2017 22:05:25 Reading Location: [address] Reading Room POCT-GLUCOSE [id number] 20:56:00 Test Item Value Reference Range Interpretation Comments POC-GLUCOSE METER 111 mg/dL 70-110 H TESTED AT [facility] [address] ([facility]) (test code [facility] = 1538) [place] [address] AMIKACIN LEVEL, [id number] 17:26:00 Test Item Value Reference Range Interpretation Comments AMIKACIN, TROUGH ([facility]) (test 10.3 ug/mL 4.0-8.0 HH code = 1830) Therapeutic Range (ug/mL)Peak: 25.0-35.0Trough: 4.0-8.0 Toxic: >35.0VENOUS DOPPLER ARMS, [id number] 16:59:00Reason for exam:->swelling right handAddendum BeginsREPORT STATUS:A Addendum:A left-sided PICC is visualized. End of addendum. Signed: Dangelo Proctor MDReport Verified Date/Time: 11/18/2017 16:59:45 Reading Location: [facility] Radiology Reading RoomAddendum EndsFINAL REPORT Bilateral upper [...] MDReport Verified Date/Time: 11/18/2017 15:36:41 Reading Location: [facility] Reading Room POCT-GLUCOSE [id number] 16:58:00 Test Item Value Reference Range Interpretation Comments POC-GLUCOSE METER 100 mg/dL 70-110 TESTED AT [facility] [address] ([facility]) (test code [facility] = 1538) [place] [address] POCT-GLUCOSE [id number] 11:30:00 Test Item Value Reference Range Interpretation Comments POC-GLUCOSE METER 119 mg/dL 70-110 H TESTED AT [facility] [address] ([facility]) (test code [facility] = 1538) [place] [address] HEPATITIS B SURFACE [id number] 11:18:00 Test Item Value Reference Range Interpretation Comments HEPATITIS B SURFACE ANTIBODY 436.5 mIU/mL <8.0 H ([facility]) (test code = 647) HEPATITIS C [id number] 11:18:00 Test Item Value Reference Range Interpretation Comments HEPATITIS C ANTIBODY ([facility]) Nonreactive Nonreactive (test code = 367) AMIKACIN LEVEL, [id number] 11:03:00 Test Item Value Reference Range Interpretation Comments AMIKACIN, PEAK ([facility]) (test code 26.0 ug/mL 25.0-35.0 = 1831) Therapeutic Range (ug/mL)Peak: 25.0-35.0Trough: 4.0-8.0 Toxic: >35.0 SURGICALLY OBTAINED CULTURE + GRAM [id number] 08:25:00 Test Item Value Reference Interpretation Comments [...] No organisms seen (BEAKER) (test code = 291948) ANAEROBIC [id number] 07:53:00 Test Item Value Reference Range Interpretation Comments CULTURE (BEAKER) (test No anaerobes isolated code = 1095) GRAM STAIN RESULT 1+ WBCs (BEAKER) (test code = 1123) GRAM STAIN RESULT No organisms seen (BEAKER) (test code = 56043) POCT-GLUCOSE [id number] 06:37:00 Test Item Value Reference Range Interpretation Comments POC-GLUCOSE METER 135 mg/dL 70-110 H TESTED AT [facility] [address] ([facility]) (test code [facility] = 1538) [place] [address] HIV-1 ANTIGEN WITH HIV-1/2 [id number] 05:51:00 Test Item Value Reference Range Interpretation Comments HIV-1 ANTIGEN WITH HIV 1\\T\\2 Nonreactive Nonreactive ANTIBODY (2) (BEAKER) (test code = 2586) HEPATITIS B SURFACE [id number] 05:46:00 Test Item Value Reference Range Interpretation Comments HEPATITIS B SURFACE ANTIGEN (2) Nonreactive Nonreactive (BEAKER) (test code = 2585) CBC W/PLT COUNT & AUTO [id number] 05:11:00 Test Item Value Reference Range Interpretation [...] code = 2801) Smear reviewed. Results confirmed.POCT-GLUCOSE [id number] 23:01:00 Test Item Value Reference Range Interpretation Comments POC-GLUCOSE METER 111 mg/dL 70-110 H TESTED AT [facility] [address] (BEAKER) (test code [facility] = 1538) [place] [address] POCT-GLUCOSE [id number] 17:15:00 Test Item Value Reference Range Interpretation Comments POC-GLUCOSE METER 100 mg/dL 70-110 TESTED AT [facility] [address] (BEAKER) (test code [facility] = 1538) [place] [address] C-REACTIVE [id number] 14:34:00 Test Item Value Reference Range Interpretation Comments C-REACTIVE PROTEIN (BEAKER) (test 35.06 mg/dL 0.00-0.50 H code = 676) POCT-GLUCOSE [id number] 12:50:00 Test Item Value Reference Range Interpretation Comments POC-GLUCOSE METER 221 mg/dL 70-110 H TESTED AT [facility] [address] (BEAKER) (test code [facility] = 1538) [place] [address] CBC W/PLT COUNT & AUTO [id number] 10:56:00 Test Item Value Reference Range Interpretation [...] PERCENT (BEAKER) (test code = 2801) POCT-GLUCOSE [id number] 10:03:00 Test Item Value Reference Range Interpretation Comments POC-GLUCOSE METER 104 mg/dL 70-110 TESTED AT [facility] [address] (BEAKER) (test code [facility] = 1538) [place] [address] BASIC METABOLIC [id number] 04:51:00 Test Item Value Reference Range Interpretation [...] NOT APPLICABLE FOR DIALYSIS PATIEN TS. POCT-GLUCOSE [id number] 20:41:00 Test Item Value Reference Range Interpretation Comments POC-GLUCOSE METER 127 mg/dL 70-110 H TESTED AT [facility] [address] ([facility]) (test code [facility] = 1538) [place] [address] POCT-GLUCOSE [id number] 17:03:00 Test Item Value Reference Range Interpretation Comments POC-GLUCOSE METER 145 mg/dL 70-110 H TESTED AT [facility] [address] ([facility]) (test code [facility] = 1538) [place] [address] [id number] 12:39:00 Test Item Value Reference Range Interpretation Comments PROCALCITONIN ([facility]) (test code 1.27 ng/mL <0.05 H = 3036) SEPSIS RISK (ng/mL)Low: 0.05-0.50Intermediate: 0.51-2.00High: >=2.01POCT-GLUCOSE [id number] 11:58:00 Test Item Value Reference Range Interpretation Comments POC-GLUCOSE METER 120 mg/dL 70-110 H TESTED AT [facility] [address] ([facility]) (test code [facility] = 1538) [place] [address] CBC W/PLT COUNT & AUTO [id number] 09:50:00 Test Item Value Reference Range Interpretation [...] PERCENT (BEAKER) (test code = 2801) POCT-GLUCOSE [id number] 06:32:00 Test Item Value Reference Range Interpretation Comments POC-GLUCOSE METER 124 mg/dL 70-110 H TESTED AT [facility] [address] (BEAKER) (test code [facility] = 1538) [place] [address] BASIC METABOLIC [id number] 06:27:00 Test Item Value Reference Range Interpretation [...] APPLICABLE FOR DIALYSIS PATIEN TS. BUN AND [id number] 06:26:00 Test Item Value Reference Range Interpretation [...] APPLICABLE FOR DIALYSIS PATIEN TS. HEMOGLOBIN AND [id number] 06:03:00 Test Item Value Reference Range Interpretation Comments HEMOGLOBIN (BEAKER) (test code = 8.6 GM/DL 12.0-15.5 L 410) HEMATOCRIT (BEAKER) (test code = 25.9 % 36.0-46.0 L 411) CT, CHEST, WITHOUT [id number] 22:51:00FINAL REPORT CLINICAL HISTORY: Leukocytosis FINDINGS: Multiple [...] MDReport Verified Date/Time: 11/15/2017 22:51:35 Reading Location: [address] [place], [id number] 22:51:00FINAL REPORT CLINICAL HISTORY: Leukocytosis FINDINGS: Multiple [...] MDReport Verified Date/Time: 11/15/2017 22:51:35 Reading Location: [address] Reading Room POCT-GLUCOSE [id number] 21:14:00 Test Item Value Reference Range Interpretation Comments POC-GLUCOSE METER 128 mg/dL 70-110 H TESTED AT [address] ([facility]) (test code [facility] = 1538) [place] [address] POCT-GLUCOSE [id number] 17:10:00 Test Item Value Reference Range Interpretation Comments POC-GLUCOSE METER 109 mg/dL 70-110 TESTED AT [address] ([facility]) (test code [facility] = 1538) [place] [address] POCT-GLUCOSE [id number] 12:15:00 Test Item Value Reference Range Interpretation Comments POC-GLUCOSE METER 116 mg/dL 70-110 H TESTED AT [address] ([facility]) (test code [facility] = 1538) [place] [address] SPIN/CONCENTRATION [id number] 10:39:00 Test Item Value Reference Range Interpretation Comments CONCENTRATION CHARGED ([facility]) (test Done code = 2657) CBC W/PLT COUNT & AUTO [id number] 09:22:00 Test Item Value Reference Range Interpretation [...] (test code = 2801) TYPE AND SCREEN, [id number] 08:18:00 Test Item Value Reference Range Interpretation Comments ABO/RH AUTOMATED (BEAKER) (test B POSITIVE code = 2260) AB SCREEN (BEAKER) (test code = NEGATIVE 923) ANAEROBIC [id number] 07:55:00 Test Item Value Reference Range Interpretation Comments CULTURE (BEAKER) (test No anaerobes isolated code = 1095) BASIC METABOLIC [id number] 05:40:00 Test Item Value Reference Range Interpretation [...] APPLICABLE FOR DIALYSIS PATIEN TS. BUN AND [id number] 05:37:00 Test Item Value Reference Range Interpretation [...] APPLICABLE FOR DIALYSIS PATIEN TS. VANCOMYCIN LEVEL, [id number] 05:36:00 Test Item Value Reference Range Interpretation Comments VANCOMYCIN TROUGH (BEAKER) (test 17.5 ug/mL 10.0-20.0 code = 522) HEMOGLOBIN AND [id number] 05:23:00 Test Item Value Reference Range Interpretation Comments HEMOGLOBIN (BEAKER) (test code = 6.4 GM/DL 12.0-15.5 L 410) HEMATOCRIT (BEAKER) (test code = 19.3 % 36.0-46.0 LL 411) POCT-GLUCOSE [id number] 16:12:00 Test Item Value Reference Range Interpretation Comments POC-GLUCOSE METER 129 mg/dL 70-110 H TESTED AT [facility] [address] (BEAKER) (test code [facility] = 1538) [place] [address] POCT-GLUCOSE [id number] 12:07:00 Test Item Value Reference Range Interpretation Comments POC-GLUCOSE METER 114 mg/dL 70-110 H TESTED AT [facility] [address] (BEAKER) (test code [facility] = 1538) [place] [address] POCT-GLUCOSE [id number] 10:00:00 Test Item Value Reference Range Interpretation Comments POC-GLUCOSE METER 97 mg/dL 70-110 TESTED AT [facility] [address] (BEAKER) (test code = [facility] 1538) [place] [address] SURGICALLY OBTAINED CULTURE + GRAM [id number] 09:36:00 Test Item Value Reference Range Interpretation Comments CULTURE (BEAKER) (test code No growth = 1095) GRAM STAIN RESULT (BEAKER) <1+ WBCs (test code = 1123) GRAM STAIN RESULT (BEAKER) No organisms seen (test code = 05181) POCT-GLUCOSE [id number] 06:06:00 Test Item Value Reference Range Interpretation Comments POC-GLUCOSE METER 105 mg/dL 70-110 TESTED AT [facility] [address] (BEAKER) (test code [facility] = 1538) [place] [address] BASIC METABOLIC [id number] 05:55:00 Test Item Value Reference Range Interpretation [...] PATIEN TS. CBC W/PLT COUNT & AUTO [id number] 05:35:00 Test Item Value Reference Range Interpretation [...] IMMATURE 4 % 0-0 H GRANULOCYTES-RELATIVE PERCENT (AKER) (test code = 2801) POCT-GLUCOSE [id number] 21:11:00 Test Item Value Reference Range Interpretation Comments POC-GLUCOSE METER 94 mg/dL 70-110 TESTED AT [address] ([facility]) (test code = [facility] 1538) [place] [address] POCT-GLUCOSE [id number] 16:51:00 Test Item Value Reference Range Interpretation Comments POC-GLUCOSE METER 121 mg/dL 70-110 H TESTED AT [address] ([facility]) (test code [facility] = 1538) [place] [address] POCT-GLUCOSE [id number] 15:10:00 Test Item Value Reference Range Interpretation Comments POC-GLUCOSE METER 97 mg/dL 70-110 TESTED AT [address] ([facility]) (test code = [facility] 1538) [place] [address] [id number] 10:17:00 Test Item Value Reference Range Interpretation Comments PROCALCITONIN ([facility]) (test code 1.41 ng/mL <0.05 H = 3036) SEPSIS RISK (ng/mL)Low: 0.05-0.50Intermediate: 0.51-2.00High: >=2.01HEPATIC FUNCTION [id number] 09:52:00 Test Item Value Reference Range Interpretation [...] code = 12 U/L 6-50 347) POCT-GLUCOSE [id number] 05:57:00 Test Item Value Reference Range Interpretation Comments POC-GLUCOSE METER 87 mg/dL 70-110 TESTED AT [facility] [address] [address] (BEAKER) (test code = [facility] 1538) [place] [address] BASIC METABOLIC [id number] 05:34:00 Test Item Value Reference Range Interpretation [...] PATIEN TS. CBC W/PLT COUNT & AUTO [id number] 05:33:00 Test Item Value Reference Range Interpretation [...] (BEAKER) (test code = 2801) BUN AND [id number] 05:32:00 Test Item Value Reference Range Interpretation Comments BLOOD UREA NITROGEN 21 mg/dL 10-26 (BEAKER) (test code = 354) CREATININE (BEAKER) 0.79 mg/dL 0.50-1.20 (test code = 358) EGFR (BEAKER) (test 91 mL/min/1.73 ESTIMA YUMIKO GFR IS code = 1092) sq m NOT ACCURATE CREATININE CLEARANCE IN PREDICTING GLOMERULAR FILTRATION RATE . ESTIMATED GFR I S NOT APPLICABLE FOR DIALYSIS PATIEN TS. BLOOD [id number] 04:00:00 Test Item Value Reference Range Interpretation Comments CULTURE (BEAKER) (test No growth in 5 days code = 1095) BLOOD [id number] 01:00:00 Test Item Value Reference Range Interpretation Comments CULTURE (BEAKER) (test No growth in 5 days code = 1095) POCT-GLUCOSE [id number] 21:25:00 Test Item Value Reference Range Interpretation Comments POC-GLUCOSE METER 135 mg/dL 70-110 H TESTED AT [facility] [address] (BEAKER) (test code [facility] = 1538) [place] [address] ANG, NON-TUNNELED CATH/PICC >5 Y.O.2017-11-12 17:59:00Reason for [...] MDReport Verified Date/Time: 11/12/2017 17:59:19 Reading Location: [facility] Radiology Reading Room POCT-GLUCOSE [id number] 16:37:00 Test Item Value Reference Range Interpretation Comments POC-GLUCOSE METER 98 mg/dL 70-110 TESTED AT [facility] [address] (BEAKER) (test code = [facility] 1538) [place] [address] PERIPHERAL BLOOD SMEAR - PATH REVIEW LAB [id number] 08:14:00 Test Item Value Reference Range Interpretation Comments PERIPHERAL SMR REVIEW Neutrophilic (BEAKER) (test code = leukocytosis and 2640) microcytic anemia. No blast forms seen. [id number] Nazario Becker M.D. (BEAKER) (test code = [...] few 963) BODY FLUID CULTURE + GRAM [id number] 08:10:00 Test Item Value Reference Range Interpretation Comments CULTURE (BEAKER) (test No growth code = 1095) GRAM STAIN RESULT 3+ White blood cells (BEAKER) (test code = seen 1123) GRAM STAIN RESULT No organisms seen (BEAKER) (test code = 74965) POCT-GLUCOSE [id number] 06:18:00 Test Item Value Reference Range Interpretation Comments POC-GLUCOSE METER 113 mg/dL 70-110 H TESTED AT [facility] [address] (BEAKER) (test code [facility] = 1538) [place] [address] CBC W/PLT COUNT & AUTO [id number] 04:40:00 Test Item Value Reference Range Interpretation [...] (BEAKER) (test code = 2801) BASIC METABOLIC [id number] 03:56:00 Test Item Value Reference Range Interpretation [...] CENTER) (test code = 652) CALCIUM (BEAKER) 7.5 mg/dL 8.5-10.5 L (test code = 697) EGFR (BEAKER) (test 88 mL/min/1.73 ESTIMA YUMIKO GFR IS code = 1092) sq m NOT ACCURATE CREATININE CLEARANCE IN PREDICTING GLOMERULAR FILTRATION RATE . ESTIMATED GFR I S NOT APPLICABLE FOR DIALYSIS PATIEN TS. BUN AND [id number] 03:55:00 Test Item Value Reference Range Interpretation Comments BLOOD UREA NITROGEN 19 mg/dL 10-26 ([facility]) (test code = 354) CREATININE (BEAKER) 0.81 mg/dL 0.50-1.20 (test code = 358) EGFR (BEAKER) (test 88 mL/min/1.73 ESTIMA YUMIKO GFR IS code = 1092) sq m NOT ACCURATE CREATININE CLEARANCE IN PREDICTING GLOMERULAR FILTRATION RATE . ESTIMATED GFR I S NOT APPLICABLE FOR DIALYSIS PATIEN TS. POCT-GLUCOSE [id number] 20:51:00 Test Item Value Reference Range Interpretation Comments POC-GLUCOSE METER 151 mg/dL 70-110 H TESTED AT [facility] [address] ([facility]) (test code [facility] = 1538) [place] [address] POCT-GLUCOSE [id number] 17:20:00 Test Item Value Reference Range Interpretation Comments POC-GLUCOSE METER 101 mg/dL 70-110 TESTED AT [facility] [address] ([facility]) (test code [facility] = 1538) [place] [address] SPIN/CONCENTRATION [id number] 15:42:00 Test Item Value Reference Range Interpretation Comments CONCENTRATION CHARGED ([facility]) (test Done code = 2657) POCT-GLUCOSE [id number] 11:34:00 Test Item Value Reference Range Interpretation Comments POC-GLUCOSE METER 109 mg/dL 70-110 TESTED AT [facility] [address] ([facility]) (test code [facility] = 1538) [place] [address] VANCOMYCIN LEVEL, [id number] 09:14:00 Test Item Value Reference Range Interpretation Comments VANCOMYCIN TROUGH ([facility]) (test 10.6 ug/mL 10.0-20.0 code = 522) BASIC METABOLIC [id number] 05:59:00 Test Item Value Reference Range Interpretation [...] APPLICABLE FOR DIALYSIS PATIEN TS. BUN AND [id number] 05:58:00 Test Item Value Reference Range Interpretation Comments BLOOD UREA NITROGEN 17 mg/dL 10-26 (BEAKER) (test code = 354) CREATININE (BEAKER) 0.80 mg/dL 0.50-1.20 (test code = 358) EGFR (BEAKER) (test 90 mL/min/1.73 ESTIMA YUMIKO GFR IS code = 1092) sq m NOT ACCURATE CREATININE CLEARANCE IN PREDICTING GLOMERULAR FILTRATION RATE . ESTIMATED GFR I S NOT APPLICABLE FOR DIALYSIS PATIEN TS. POCT-GLUCOSE [id number] 05:49:00 Test Item Value Reference Range Interpretation Comments POC-GLUCOSE METER 121 mg/dL 70-110 H TESTED AT [facility] [address] (BEAKER) (test code [facility] = 1538) [place] [address] CBC W/PLT COUNT & AUTO [id number] 05:43:00 Test Item Value Reference Range Interpretation [...] PERCENT (BEAKER) (test code = 2801) POCT-GLUCOSE [id number] 00:07:00 Test Item Value Reference Range Interpretation Comments POC-GLUCOSE METER 150 mg/dL 70-110 H TESTED AT [facility] [address] (BEAKER) (test code [facility] = 1538) [place] [address] RAD, HIP, 1 VIEW, [id number] 23:51:00Reason for exam:->postopFINAL REPORT Right hip. HISTORY: Postoperative. COMPARISON STUDY: October 29, 2017. FINDINGS: A single frontal view of the right hip demonstrates a hemiarthroplasty in place. No cement is identified. There is no evidence of fracture or malalignment on this single projection. Signed: Alexandrea Blancoeport Verified Date/Time: 11/10/2017 23:51:24 Reading Location: [address] Ortho Consult Reading Room RAD, PELVIS, 1 OR 2 [id number] 23:22:00Reason for exam:->Hip ArthroplastyReason for exam:->X-Table Lateral during OR. Sterile FieldFINAL REPORT Pelvis. HISTORY: Hip arthroplasty. COMPARISON STUDY: CT scan dated November 07, 2017. FINDINGS: Two views of the pelvis are suboptimal in appearance. A right hemiarthroplasty seen in place with no obvious fracture or malalignment on the provided views. Assessment for fractures is limited. Signed: Alexandrea Blancoeport Verified Date/Time: 11/10/2017 23:22:52 Reading Location: [address] Ortho Consult Reading Room POCT-GLUCOSE [id number] 22:54:00 Test Item Value Reference Range Interpretation Comments POC-GLUCOSE METER 140 mg/dL 70-110 H TESTED AT [facility] [address] ([facility]) (test code [facility] = 1538) [place] [address] POCT-GLUCOSE [id number] 16:57:00 Test Item Value Reference Range Interpretation Comments POC-GLUCOSE METER 98 mg/dL 70-110 TESTED AT [facility] [address] ([facility]) (test code = [facility] 1538) [place] [address] POCT-GLUCOSE [id number] 12:41:00 Test Item Value Reference Range Interpretation Comments POC-GLUCOSE METER 111 mg/dL 70-110 H TESTED AT [facility] [address] (BEAKER) (test code [facility] = 1538) [place] [address] (MANUAL DIFFERENTIAL)2017-11-10 07:35:00 Test Item Value Reference [...] = 762) CBC W/PLT COUNT & AUTO [id number] 07:32:00 Test Item Value Reference Range Interpretation [...] 0-0 CELLS (BEAKER) (test code = 413) [id number] 07:25:00 Test Item Value Reference Range Interpretation Comments PHOSPHORUS (BEAKER) (test code = 3.5 mg/dL 2.5-4.5 604) [id number] 07:25:00 Test Item Value Reference Range Interpretation Comments MAGNESIUM (BEAKER) (test code = 1.7 mg/dL 1.5-3.0 627) BASIC METABOLIC [id number] 07:25:00 Test Item Value Reference Range Interpretation [...] NOT APPLICABLE FOR DIALYSIS PATIEN TS. POCT-GLUCOSE [id number] 06:45:00 Test Item Value Reference Range Interpretation Comments POC-GLUCOSE METER 121 mg/dL 70-110 H TESTED AT [facility] [address] ([facility]) (test code [facility] = 1538) [place] [address] POCT-GLUCOSE [id number] 22:14:00 Test Item Value Reference Range Interpretation Comments POC-GLUCOSE METER 124 mg/dL 70-110 H TESTED AT [facility] [address] ([facility]) (test code [facility] = 1538) [place] [address] VANCOMYCIN LEVEL, [id number] 21:02:00 Test Item Value Reference Range Interpretation Comments VANCOMYCIN TROUGH ([facility]) (test 9.6 ug/mL 10.0-20.0 L code = 522) POCT-GLUCOSE [id number] 17:22:00 Test Item Value Reference Range Interpretation Comments POC-GLUCOSE METER 98 mg/dL 70-110 TESTED AT [facility] [address] ([facility]) (test code = [facility] 1538) [place] [address] POCT-GLUCOSE [id number] 11:36:00 Test Item Value Reference Range Interpretation Comments POC-GLUCOSE METER 127 mg/dL 70-110 H TESTED AT [facility] [address] ([facility]) (test code [facility] = 1538) [place] [address] WOUND CULTURE + GRAM [id number] 11:05:00 Test Item Value Reference Interpretation Comments [...] No organisms seen (BEAKER) (test code = 587250) POCT-GLUCOSE [id number] 05:54:00 Test Item Value Reference Range Interpretation Comments POC-GLUCOSE METER 116 mg/dL 70-110 H TESTED AT [facility] [address] (BEAKER) (test code [facility] = 1538) [place] [address] [id number] 03:42:00 Test Item Value Reference Range Interpretation Comments PHOSPHORUS (BEAKER) (test code = 3.8 mg/dL 2.5-4.5 604) [id number] 03:42:00 Test Item Value Reference Range Interpretation Comments MAGNESIUM (BEAKER) (test code = 1.9 mg/dL 1.5-3.0 627) BASIC METABOLIC [id number] 03:42:00 Test Item Value Reference Range Interpretation [...] PATIEN TS. CBC W/PLT COUNT & AUTO [id number] 03:21:00 Test Item Value Reference Range Interpretation [...] PERCENT (BEAKER) (test code = 2801) POCT-GLUCOSE [id number] 20:55:00 Test Item Value Reference Range Interpretation Comments POC-GLUCOSE METER 122 mg/dL 70-110 H TESTED AT [facility] [address] ([facility]) (test code [facility] = 1538) [place] [address] POCT-GLUCOSE [id number] 16:19:00 Test Item Value Reference Range Interpretation Comments POC-GLUCOSE METER 136 mg/dL 70-110 H TESTED AT [facility] [address] ([facility]) (test code [facility] = 1538) [place] [address] HEMOGLOBIN AND [id number] 14:19:00 Test Item Value Reference Range Interpretation Comments HEMOGLOBIN (BEAKER) (test code = 8.1 GM/DL 12.0-15.5 L 410) HEMATOCRIT (BEAKER) (test code = 24.9 % 36.0-46.0 L 411) POCT-GLUCOSE [id number] 12:13:00 Test Item Value Reference Range Interpretation Comments POC-GLUCOSE METER 142 mg/dL 70-110 H TESTED AT [facility] [address] ([facility]) (test code [facility] = 1538) [place] [address] POCT-GLUCOSE [id number] 06:02:00 Test Item Value Reference Range Interpretation Comments POC-GLUCOSE METER 109 mg/dL 70-110 TESTED AT [facility] [address] ([facility]) (test code [facility] = 1538) [place] [address] POCT-GLUCOSE [id number] 05:38:00 Test Item Value Reference Range Interpretation Comments POC-GLUCOSE METER 150 mg/dL 70-110 H TESTED AT [facility] [address] (BEAKER) (test code [facility] = 1538) [place] [address] TYPE AND SCREEN, [id number] 03:11:00 Test Item Value Reference Range Interpretation Comments ABO/RH AUTOMATED (BEAKER) (test B Positive code = 2260) AB SCREEN (BEAKER) (test code = Negative 923) HEMOGLOBIN AND [id number] 02:41:00 Test Item Value Reference Range Interpretation Comments HEMOGLOBIN (BEAKER) (test code = 5.9 GM/DL 12.0-15.5 LL 410) HEMATOCRIT (BEAKER) (test code = 18.2 % 36.0-46.0 LL 411) COMPREHENSIVE METABOLIC [id number] 01:43:00 Test Item Value Reference Range Interpretation [...] S NOT APPLICABLE FOR DIALYSIS PATIEN TS. [id number] 01:36:00 Test Item Value Reference Range Interpretation Comments PHOSPHORUS (BEAKER) (test code = 3.3 mg/dL 2.5-4.5 604) [id number] 01:36:00 Test Item Value Reference Range Interpretation Comments MAGNESIUM (BEAKER) (test code = 1.9 mg/dL 1.5-3.0 627) LACTIC ACID, VENOUS, WHOLE [id number] 01:29:00 Test Item Value Reference Range Interpretation Comments LACTATE BLOOD VENOUS (2) (BEAKER) 0.8 mmol/L 0.5-2.2 (test code = 2872) Effective 07/19/2015: Units/Reference Range ChangeNew: 0.5-2.2 mmol/L Previous: 5-20 mg/dLCBC W/PLT COUNT & AUTO [id number] 01:25:00 Test Item Value Reference Range Interpretation [...] PERCENT (BEAKER) (test code = 2801) POCT-GLUCOSE [id number] 21:52:00 Test Item Value Reference Range Interpretation Comments POC-GLUCOSE METER 113 mg/dL 70-110 H TESTED AT [facility] [address] ([facility]) (test code [facility] = 1538) [place] [address] CT, EXTREMITY, LOWER WITHOUT CONTRAST, [id number] 19:15:00FINAL REPORT CT scan of the right [...] fluid is seen within this abscess. Signed: Stanietzky, Alexandrea MDReport Verified Date/Time: 11/07/2017 19:15:59 Reading Location: [facility] B1 C013W Consult Reading Room RAD, HIP, 2 VIEWS, [id number] 16:19:00Reason for exam:->HIP PAIN FINAL REPORT INDICATION:Right [...] Bauer Verified Date/Time: 11/07/2017 16:19:47 Reading Location: [facility] Women CBC W/PLT COUNT & AUTO [id number] 16:00:00 Test Item Value Reference Range Interpretation [...] (BEAKER) (test code Normal = 762) C-REACTIVE [id number] 15:30:00 Test Item Value Reference Range Interpretation Comments C-REACTIVE PROTEIN (BEAKER) (test 47.39 mg/dL 0.00-0.50 H code = 676) COMPREHENSIVE METABOLIC [id number] 15:30:00 Test Item Value Reference Range Interpretation [...] APPLICABLE FOR DIALYSIS PATIEN TS. BASIC METABOLIC [id number] 06:26:00 Test Item Value Reference Range Interpretation [...] PATIEN TS. CBC W/PLT COUNT & AUTO [id number] 06:12:00 Test Item Value Reference Range Interpretation [...] L 0.00-0.20 (test code = 417) POCT-GLUCOSE [id number] 05:55:00 Test Item Value Reference Range Interpretation Comments POC-GLUCOSE METER 120 mg/dL 70-110 H TESTED AT [facility] [address] (BEAKER) (test code [facility] = 1538) [place] [address] POCT-GLUCOSE [id number] 21:07:00 Test Item Value Reference Range Interpretation Comments POC-GLUCOSE METER 121 mg/dL 70-110 H TESTED AT [facility] [address] (BEAKER) (test code [facility] = 1538) [place] [address] POCT-GLUCOSE [id number] 17:45:00 Test Item Value Reference Range Interpretation Comments POC-GLUCOSE METER 131 mg/dL 70-110 H TESTED AT [facility] [address] (BEAKER) (test code [facility] = 1538) [place] [address] HEMOGLOBIN AND [id number] 14:26:00 Test Item Value Reference Range Interpretation Comments HEMOGLOBIN (BEAKER) (test code = 7.9 GM/DL 12.0-15.0 L 410) HEMATOCRIT (BEAKER) (test code = 24.6 % 36.0-45.0 L 411) POCT-GLUCOSE [id number] 11:22:00 Test Item Value Reference Range Interpretation Comments POC-GLUCOSE METER 134 mg/dL 70-110 [place] [address] (BEAKER) (test code [facility] = 1538) [place] [address] BASIC METABOLIC [id number] 05:16:00 Test Item Value Reference Range Interpretation [...] APPLICABLE FOR DIALYSIS PATIEN TS. Specimen recollected. [id number] 04:56:00 Test Item Value Reference Range Interpretation Comments POC-GLUCOSE METER 141 mg/dL 70-110 H TESTED AT [facility] [address] (BEAKER) (test code [facility] = 1538) [place] [address] HEMOGLOBIN AND [id number] 04:10:00 Test Item Value Reference Range Interpretation [...] few 965) CBC W/PLT COUNT & AUTO [id number] 21:34:00 Test Item Value Reference Range Interpretation [...] 6.5-10.5 (BEAKER) (test code = 754) POCT-GLUCOSE [id number] 21:17:00 Test Item Value Reference Range Interpretation Comments POC-GLUCOSE METER 126 mg/dL 70-110 H TESTED AT [facility] [address] (BEAKER) (test code [facility] = 1538) [place] [address] POCT-GLUCOSE [id number] 18:04:00 Test Item Value Reference Range Interpretation Comments POC-GLUCOSE METER 117 mg/dL 70-[address] [place] [address] [address] (BEAKER) (test code [facility] = 1538) [place] [address] POCT-GLUCOSE [id number] 11:38:00 Test Item Value Reference Range Interpretation Comments POC-GLUCOSE METER 133 mg/dL 70-[address] [place] [address] [address] (BEAKER) (test code [facility] = 1538) [place] [address] BASIC METABOLIC [id number] 04:20:00 Test Item Value Reference Range Interpretation [...] APPLICABLE FOR DIALYSIS PATIEN TS. HEMOGLOBIN AND [id number] 04:11:00 Test Item Value Reference Range Interpretation Comments HEMOGLOBIN (BEAKER) (test code = 8.1 GM/DL 12.0-15.0 L 410) HEMATOCRIT (BEAKER) (test code = 25.6 % 36.0-45.0 L 411) POCT-GLUCOSE [id number] 04:03:00 Test Item Value Reference Range Interpretation Comments POC-GLUCOSE METER 151 mg/dL 70-110 H TESTED AT [facility] [address] (BEAKER) (test code [facility] = 1538) [place] [address] RAD, HIP, 1 VIEW, [id number] 21:16:00Reason for exam:->postopShould this be performed at [...] Garcia Verified Date/Time: 10/29/2017 21:16:21 Reading Location: [address] Transitional Re ading Room POCT-GLUCOSE [id number] 20:20:00 Test Item Value Reference Range Interpretation Comments POC-GLUCOSE METER 76 mg/dL 70-110 TESTED AT [facility] [address] ([facility]) (test code = [facility] 1538) [place] [address] POCT-GLUCOSE [id number] 15:13:00 Test Item Value Reference Range Interpretation Comments POC-GLUCOSE METER 150 mg/dL 70-110 H TESTED AT [facility] [address] ([facility]) (test code [facility] = 1538) [place] [address] RAD, HIP, OPERATIVE, [id number] 14:41:00Reason for exam:->RequiredFINAL REPORT RIGHT HIP ONE VIEW HISTORY: Right hip pain, right hip arthroplasty COMPARISON: None FINDINGS: Single intraoperative image of the right hip/low pelvis shows in progress changes of right hip total arthroplasty. A reamer is present in the proximal right femur. The acetabular region is obscured by overlying hardware. Signed: Ceci Aldrich Verified Date/Time: 10/29/2017 14:41:51 Reading Location: [facility] Radiology Reading Room POCT- GLUCOSE [id number] 09:53:00 Test Item Value Reference Range Interpretation Comments POC-GLUCOSE METER 104 mg/dL 70-110 TESTED AT [facility] [address] (BEAKER) (test code [facility] = 1538) [place] [address] BASIC METABOLIC [id number] 12:23:00 Test Item Value Reference Range Interpretation [...] APPLICABLE FOR DIALYSIS PATIEN TS. URINALYSIS W/ [id number] 12:21:00 Test Item Value Reference Range Interpretation [...] = 2795) CBC W/PLT COUNT & AUTO [id number] 12:18:00 Test Item Value Reference Range Interpretation [...] L 0.00-0.20 (test code = 417) MRSA [id number] 08:33:00 Test Item Value Reference Range Interpretation Comments CULTURE (BEAKER) (test code No MRSA isolated = 1095)
[2021-02-12 10:35] LABS: Absolute Lymphocytes (CBC) 0.3 K/uL (0.7-4.9); Basophils % 0.5 % (0-1.3); Hematocrit 23.6 % (36.0-45.0); Lymphocytes % 4.3 % (15.3-44.8); MPV 7.3 fL (7.6-11.3); RBC Red Blood Cell Count 2.94 M/uL (3.86-4.86)
[2021-02-12 10:43] LABS: Protime INR 1.37
[2021-02-12] MEDS ORDERED: ONDANSETRON 4 MG/2 ML VIAL ONE (10:43)
[2021-02-12] MEDS ORDERED: HYDROMORPHONE HCL 1 MG/ML INJ ONE ×3 (10:43→21:06)
[2021-02-12 11:05] LABS: Albumin 2.7 g/dL (3.4-5.0); Bilirubin Direct 0.4 mg/dL (0-0.2); Bilirubin Total 0.9 mg/dL (0.2-1.0); Magnesium 1.9 mg/dL (1.8-2.4); Protein, Total 7.2 g/dL (6.4-8.2); Troponin (Emerg Dept Use Only) 0.02 ng/mL (0.0-0.045)
[2021-02-12 11:26] LABS: Potassium 2.7 mmol/L (3.5-5.1)
--- NOTE | 2021-02-12 11:37 | RAD REPORT ---
EXAM DESCRIPTION: RAD - Chest Single View - 02/12/2021 10:50 am CLINICAL HISTORY: DYSPNEA COMPARISON: January 25 TECHNIQUE: AP portable chest image was obtained 02/12/2021 10:50 am . FINDINGS: Lung volumes are low accentuating lung parenchyma. Interstitial and alveolar opacities are evident. Cardiomegaly and vascular engorgement present. Left subclavian PICC line has not changed. No pneumothorax or measurable pleural effusion. No acute bony abnormality seen. No acute aortic find ings suspected. IMPRESSION: Mild to moderate CHF/ volume overload findings are present. Bilateral pneumonia could potentially have this presentation though no findings in the history indica te acute respiratory illness.
[2021-02-12] MEDS ORDERED: POTASSIUM CL SA 10 MEQ TAB PO ONE (11:54)
[2021-02-12] MEDS ORDERED: FUROSEMIDE 40 MG/4 ML VIAL ONE ×2 (11:54→21:37)
[2021-02-12] MEDS ORDERED: KCL 20 MEQ/100 mL IVPB 20 MEQ/100 ML BAG IV ONE (11:54)
--- NOTE | 2021-02-12 12:05 | ER ---
Nurse's Notes [facility] Name: Sade Galdamez Age: 60 yrs Sex: Female : 1960 Arrival Date: 02/12/2021 Time: 08:22 Bed 13 Private MD: Diagnosis: Chest pain, unspecified;Acute on chronic combined systolic (congestive) and diastolic (congestive) heart failure;Hypokalemia Presentation: 02/12 08:43 Chief complaint: Patient states: chest pain since this morning, hurts more when taking iw a deep breath. Coronavirus screen: At this time, the client does not indicate any symptoms associated with coronavirus-19. Ebola Screen: Patient negative for fever greater than or equal to 101.5 degrees Fahrenheit, and additional compatible Ebola Virus Disease symptoms Patient denies exposure to infectious person. Patient denies travel to an Ebola-affected area in the 21 days before illness onset. No symptoms or risks identified at this time. Initial Sepsis Screen: Does the patient meet any 2 criteria? No. Patient's initial sepsis screen is negative. Does the patient have a suspected source of infection? No. Patient's initial sepsis screen is negative. Risk Assessment: Do you want to hurt yourself or someone else? Patient reports no desire to harm self or others. Onset of symptoms was February 12, 2021. 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 - Social history:: Smoking status: Patient denies any tobacco usage or history of. Screenin:27 Abuse screen: Denies threats or abuse. Nutritional screening: No deficits noted. as6 Tuberculosis screening: No symptoms or risk factors identified. Fall Risk IV access (20 points). Gait- Weak (10 pts.). Total Schaeffer Fall Scale indicates Low Risk Score (25-44 pts). Side Rails Up X 2 Frequent Obs/Assesments occuring As available Patient and Family Educated on Fall Prevention Program and strategies. Assessment: 10:07 General: Appears uncomfortable, Behavior is cooperative, anxious, restless. Pain: as6 Complains of pain in anterior aspect of left upper chest Pain began 4 hours ago. Neuro: Level of Consciousness is awake, alert, obeys commands, Oriented to person, place, time, situation. Cardiovascular: Reports chest pain, it is hard to take a deep breath. Respiratory: Airway is patent Trachea midline Respiratory effort is even, unlabored, Respiratory pattern is regular, symmetrical. Derm: Skin is intact, is healthy with good turgor. 10:59 Reassessment: Patient and/or family updated on plan of care and expected duration. Pain as6 level reassessed. Patient is alert, oriented x 3, equal unlabored respirations, skin warm/dry/pink. pt ambulated to bathroom. 11:40 Reassessment: SpO2 81% RA, placed pt on 2 LPM O2 via NC, SpO2 improved to 98%. as6 16:29 Reassessment: pt continues to c/o being in pain, provider notified, no new orders. as6 18:45 Reassessment: Patient appears in no apparent distress at this time. No changes from ld1 previously documented assessment. Patient and/or family updated on plan of care and expected duration. Pain level reassessed. Patient is alert, oriented x 3, equal unlabored respirations, skin warm/dry/pink. Vital Signs: 08:43 BP 150 / 86; Pulse 99; Resp 20 S; Temp 98.4; Pulse Ox 97% on R/A; Weight 108.86 kg (R); iw Height 5 ft. 5 in. (165.10 cm); 10:06 BP 157 / 77; Pulse 113; Resp 22 S; Pulse Ox 96% on R/A; as6 11:04 BP 132 / 69; Pulse 105; Resp 22 S; Pulse Ox 93% on R/A; as6 12:00 BP 135 / 78; Pulse 110; Resp 20 S; Pulse Ox 98% on 2 lpm NC; as6 13:30 BP 119 / 70; Pulse 108; Resp 18 S; Pulse Ox 98% on R/A; as6 18:45 BP 108 / 61; Pulse 97; Resp 20; Pulse Ox 83% on R/A; ld1 18:45 BP 108 / 61; Pulse 92; Resp 20; Pulse Ox 96% on 3 lpm NC; ld1 08:43 Body Mass Index 39.94 (108.86 kg, 165.10 cm) iw ED Course: 08:22 Patient arrived in ED. iw 08:44 Triage completed. iw 08:45 Arm band placed on. iw 09:56 Parker Soto PA is PHCP. jr8 09:56 [facility] MD is Attending Physician. jr8 09:58 Elias Burton, SILAS is Primary Nurse. as6 10:26 Accessed PICC line. Blood collected. Clean \T\ dry. Dressing intact. Good blood return. as6 Flushes easily. 10:27 Bed in low position. Call light in reach. Side rails up X2. patient monitor on. Pulse as6 ox on. NIBP on. Warm blanket given. 10:50 XRAY Chest (1 view) In Process Unspecified. EDMS 12:04 Scott Coffey MD is Hospitalizing Provider. jr8 Administered Medications: 10:51 Drug: Dilaudid (HYDROmorphone) 1 mg Route: IVP; Site: left upper arm; as6 11:50 Follow up: Response: No adverse reaction; RASS: Alert and Calm (0) as6 10:51 Drug: Zofran (Ondansetron) 4 mg Route: IVP; Site: left upper arm; as6 11:49 Follow up: Response: No adverse reaction as6 12:17 Drug: Potassium Chloride 40 mEq Route: PO; as6 13:46 Follow up: Response: No adverse reaction as6 12:17 Drug: Potassium Chloride 20 mEq Route: IV; Rate: calculated rate; Site: left upper arm; as6 14:00 Follow up: Response: No adverse reaction; IV Status: Completed infusion; IV Intake: as6 100ml 12:17 Drug: Dilaudid (HYDROmorphone) 1 mg Route: IVP; Site: left upper arm; as6 13:00 Follow up: Response: No adverse reaction; Pain is decreased; RASS: Alert and Calm (0) as6 12:17 Drug: Lasix (furosemide) 40 mg Route: IVP; Site: left upper arm; as6 13:00 Follow up: Response: No adverse reaction as6 Intake: 14:00 IV: 100ml; Total: 100ml. as6 Outcome: 12:05 Decision to Hospitalize by Provider. jr8 02/13 10:20 Patient left the ED. vg1 Signatures: Dispatcher [employer] EDDelfina Walker, RN RN Parker Workman PA PA jr8 Petra Love RN RN vg1 Katina Gonzalez RN RN ld1 Elias Burton RN RN as6 Corrections: (The following items were deleted from the chart) 02/12 08:45 08:44 Allergies: Iodine; brian torres
--- NOTE | 2021-02-12 12:05 | EDPHYS ---
Physician Documentation [facility] Name: Sade Galdamez Age: 60 yrs Sex: Female : 1960 Arrival Date: 02/12/2021 Time: 08:22 Bed 13 Private MD: ED Physician [facility] HPI: 02/12 11:11 This 60 yrs old Black Female presents to ER via Wheelchair with complaints of Chest jr8 Pain. 11:11 This is a 60-year-old female with a history of cancer that is currently going through jr8 chemotherapy that presented to the emergency room with sudden onset of chest pain that started around 4:00 this morning. Patient has had this several times in the past and feels better after her potassium and magnesium has been replaced. Patient currently anticoagulated with Eliquis as well.. 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 - Social history:: Smoking status: Patient denies any tobacco usage or history of. ROS: 11:11 Eyes: Negative for injury, pain, redness, and discharge, ENT: Negative for injury, jr8 pain, and discharge, Neck: Negative for injury, pain, and swelling, Respiratory: Negative for shortness of breath, cough, wheezing, and pleuritic chest pain, Abdomen/GI: Negative for abdominal pain, nausea, vomiting, diarrhea, and constipation, Back: Negative for injury and pain, MS/Extremity: Negative for injury and deformity, Skin: Negative for injury, rash, and discoloration, Neuro: Negative for headache, weakness, numbness, tingling, and seizure. 11:11 Cardiovascular: Positive for chest pain. Exam: 11:11 Eyes: Pupils equal round and reactive to light, extra-ocular motions intact. Lids and jr8 lashes normal. Conjunctiva and sclera are non-icteric and not injected. Cornea within normal limits. Periorbital areas with no swelling, redness, or edema. ENT: Nares patent. No nasal discharge, no septal abnormalities noted. Tympanic membranes are normal and external auditory canals are clear. Oropharynx with no redness, swelling, or masses, exudates, or evidence of obstruction, uvula midline. Mucous membranes moist. Neck: Trachea midline, no thyromegaly or masses palpated, and no cervical lymphadenopathy. Supple, full range of motion without nuchal rigidity, or vertebral point tenderness. No Meningismus. Cardiovascular: Tachycardic with a normal S1 and S2. No gallops, murmurs, or rubs. Normal PMI, no JVD. No pulse deficits. Respiratory: Lungs have equal breath sounds bilaterally, Scan wheezing noted left side. Tachypneic. Abdomen/GI: Soft, non-tender, with normal bowel sounds. No distension or tympany. No guarding or rebound. No evidence of tenderness throughout. Back: No spinal tenderness. No costovertebral tenderness. Full range of motion. Skin: Warm, dry with normal turgor. Normal color with no rashes, no lesions, and no evidence of cellulitis. MS/ Extremity: Pulses equal, no cyanosis. Neurovascular intact. Full, normal range of motion. Neuro: Awake and alert, GCS 15, oriented to person, place, time, and situation. Cranial nerves II-XII grossly intact. Motor strength 5/5 in all extremities. Sensory grossly intact. 11:11 Chest/axilla: Inspection: Bilateral mastectomy present. Moderate tenderness to palpation over the left incisional site.. Vital Signs: 08:43 BP 150 / 86; Pulse 99; Resp 20 S; Temp 98.4; Pulse Ox 97% on R/A; Weight 108.86 kg (R); iw Height 5 ft. 5 in. (165.10 cm); 10:06 BP 157 / 77; Pulse 113; Resp 22 S; Pulse Ox 96% on R/A; as6 11:04 BP 132 / 69; Pulse 105; Resp 22 S; Pulse Ox 93% on R/A; as6 12:00 BP 135 / 78; Pulse 110; Resp 20 S; Pulse Ox 98% on 2 lpm NC; as6 13:30 BP 119 / 70; Pulse 108; Resp 18 S; Pulse Ox 98% on R/A; as6 18:45 BP 108 / 61; Pulse 97; Resp 20; Pulse Ox 83% on R/A; ld1 18:45 BP 108 / 61; Pulse 92; Resp 20; Pulse Ox 96% on 3 lpm NC; ld1 08:43 Body Mass Index 39.94 (108.86 kg, 165.10 cm) iw MDM: 10:03 Patient medically screened. [facility] 12:03 Data reviewed: vital signs, nurses notes, lab test result(s), EKG, radiologic studies, jr8 plain films. Data interpreted: Pulse oximetry: on room air is 93 %. Interpretation: borderline. Counseling: I had a detailed discussion with the patient and/or guardian regarding: the historical points, exam findings, and any diagnostic results supporting the discharge/admit diagnosis, lab results, radiology results, the need for further work-up and treatment in the hospital. 02/12 10:04 Order name: Basic Metabolic Panel; Complete Time: 11:46 [facility] 02/12 10:04 Order name: CBC with Diff; Complete Time: 12:44 [facility] 02/12 10:04 Order name: LFT's; Complete Time: 11: [facility] 02/12 10:04 Order name: Magnesium; Complete Time: 11: [facility] 02/12 10:04 Order name: NT PRO-BNP; Complete Time: : [facility] 02/12 10:04 Order name: PT-INR; Complete Time: 11:11 [facility] 02/12 10:04 Order name: Troponin (emerg Dept Use Only); Complete Time: : [facility] 02/12 12:02 Order name: COVID-19 SARS RT PCR (Document "Date of Onset" if Symptomatic); Complete as6 Time: 13:39 02/12 12:41 Order name: Manual Differential; Complete Time: 12:44 [facility] 02/13 03:59 Order name: CBC with Automated Diff; Complete Time: 22: [facility] 02/13 04:39 Order name: Comprehensive Metabolic Panel; Complete Time: 22:29 [facility] 02/13 04:39 Order name: Phosphorus; Complete Time: 22: [facility] 02/13 04:39 Order name: NT PRO-BNP; Complete Time: 22: [facility] 02/13 04:39 Order name: Magnesium; Complete Time: 22: [facility] 02/12 10:04 Order name: XRAY Chest (1 view); Complete Time: 11:46 [facility] 02/12 10:04 Order name: EKG; Complete Time: 10:05 [facility] 02/12 10:04 Order name: Cardiac monitoring; Complete Time: 10:05 02/12 10:04 Order name: EKG - Nurse/Tech; Complete Time: 10:02/12 10:04 Order name: IV Saline Lock; Complete Time: 10:02/12 13:59 Order name: Heart Healthy [facility] 02/12 13:59 Order name: Echo with Doppler [facility] 02/12 13:59 Order name: EKG Electrocardiogram [facility] 02/12 13:59 Order name: EKG Electrocardiogram [facility] 02/13 05:14 Order name: Type and Screen; Complete Time: 22: [facility] 02/12 10:04 Order name: Labs collected and sent; Complete Time: 10:02/12 10:04 Order name: O2 Per Protocol; Complete Time: 10:02/12 10:04 Order name: O2 Sat Monitoring; Complete Time: 10: Administered Medications: 10:51 Drug: Dilaudid (HYDROmorphone) 1 mg Route: IVP; Site: left upper arm; as6 11:50 Follow up: Response: No adverse reaction; RASS: Alert and Calm (0) as6 10:51 Drug: Zofran (Ondansetron) 4 mg Route: IVP; Site: left upper arm; as6 11:49 Follow up: Response: No adverse reaction as6 12:17 Drug: Potassium Chloride 40 mEq Route: PO; as6 13:46 Follow up: Response: No adverse reaction as6 12:17 Drug: Potassium Chloride 20 mEq Route: IV; Rate: calculated rate; Site: left upper arm; as6 14:00 Follow up: Response: No adverse reaction; IV Status: Completed infusion; IV Intake: as6 100ml 12:17 Drug: Dilaudid (HYDROmorphone) 1 mg Route: IVP; Site: left upper arm; as6 13:00 Follow up: Response: No adverse reaction; Pain is decreased; RASS: Alert and Calm (0) as6 12:17 Drug: Lasix (furosemide) 40 mg Route: IVP; Site: left upper arm; as6 13:00 Follow up: Response: No adverse reaction as6 Disposition: 02/14 09:03 Co-signature as Attending Physician, [facility] MD I agree with the assessment and ruddy plan of care. Disposition Summary: 02/12/21 12:05 Hospitalization Ordered Hospitalization Status: Observation jr8 Provider: Scott Coffey Condition: Stable jr8 Problem: new jr8 Symptoms: have improved jr8 Bed/Room Type: Standard jr8 Location: Telemetry/MedSurg (Inpatient)(02/13/21 08:17) Room Assignment: 406(02/13/21 08:17) Diagnosis - Chest pain, unspecified jr8 - Acute on chronic combined systolic (congestive) and diastolic (congestive) heart jr8 failure - Hypokalemia jr8 Forms: - Medication Reconciliation Form jr8 - SBAR form jr8 Signatures: Dispatcher [employer] EDMS [facility] MD MD cha Williams, Irene, RN RN Gisela Prather RN RN ss Roszak, Josh, PA PA jr8 Elias Burton RN RN as6 Corrections: (The following items were deleted from the chart) 02/12 08:45 08:44 Allergies: Iodine; [facility] 11:49 11:11 Eyes: Pupils equal round and reactive to light, extra-ocular motions intact. Lids jr8 and lashes normal. Conjunctiva and sclera are non-icteric and not injected. Cornea within normal limits. Periorbital areas with no swelling, redness, or edema. ENT: Nares patent. No nasal discharge, no septal abnormalities noted. Tympanic membranes are normal and external auditory canals are clear. Oropharynx with no redness, swelling, or masses, exudates, or evidence of obstruction, uvula midline. Mucous membranes moist. Neck: Trachea midline, no thyromegaly or masses palpated, and no cervical lymphadenopathy. Supple, full range of motion without nuchal rigidity, or vertebral point tenderness. No Meningismus. Cardiovascular: Tachycardic with a normal S1 and S2. No gallops, murmurs, or rubs. Normal PMI, no JVD. No pulse deficits. Respiratory: Lungs have equal breath sounds bilaterally, clear to auscultation and percussion. No rales, rhonchi or wheezes noted. No increased work of breathing, no retractions or nasal flaring. Abdomen/GI: Soft, non-tender, with normal bowel sounds. No distension or tympany. No guarding or rebound. No evidence of tenderness throughout. Back: No spinal tenderness. No costovertebral tenderness. Full range of motion. Skin: Warm, dry with normal turgor. Normal color with no rashes, no lesions, and no evidence of cellulitis. MS/ Extremity: Pulses equal, no cyanosis. Neurovascular intact. Full, normal range of motion. Neuro: Awake and alert, GCS 15, oriented to person, place, time, and situation. Cranial nerves II-XII grossly intact. Motor strength 5/5 in all extremities. Sensory grossly intact. [facility] : 12:05 Telemetry/MedSurg (observation) [facility] 12:05 [facility] 02/13 08:02/12 17:00 [facility] ER HOLD [facility] 02/13 08:02/12 17:00 ERHOLD- [facility]
[2021-02-12 12:42] LABS: Blood Morphology Comment NOT SEEN (NOT SEEN); Platelet Estimate ADEQ
[2021-02-12] MEDS ORDERED: ACETAMINOPHEN 500 MG TAB PO PRN (13:48)
[2021-02-12] MEDS ORDERED: ONDANSETRON 4 MG/2 ML VIAL IV PRN (13:48)
--- NOTE | 2021-02-12 15:30 | P.HP ---
Certification for Inpatient Patient admitted to: Inpatient With expected LOS: >2 Midnights Patient will require the following post-hospital care: None Practitioner: I am a practitioner with admitting privileges, knowledge of patient current condition, hospital course, and medical plan of care. Services: Services provided to patient in accordance with Admission requirements found in Title 42 Section 412.3 of the Code of Federal Regulations Patient History Date of Service: 02/12/21 Reason for admission: Congestive heart failure exacerbation History of Present Illness: Patient is a 60-year-old female came to the hospital with shortness of breath. Patient had an echocardiogram which did not reveal significant abnormalities. Patient also had a recent cardiac catheterization with no significant coronary artery disease. Patient has been dealing with advanced sarcoma. Patient has been try to get chemo. However, she was trying to get a 2nd opinion at [facility]. She was scheduled ago today but she has not been feeling well. She got short of breath and decided to come into the hospital for further evaluation. Allergies iopamidol [From Isovue-[id number]] Allergy (Verified 01/03/21 00:13) Shortness of breath Home Medications: Gabapentin [Neurontin] 800 mg PO BID 12/07/20 Hydromorphone [Dilaudid*] 4 mg PO Q4HP PRN 12/07/20 Promethazine Tab [Phenergan*] 25 mg PO Q4H PRN 12/23/20 Docusate [Colace Cap*] 100 mg PO DAILY #30 cap 12/30/20 Amiloride HCl [Midamor*] 2 tab PO DAILY 30 Days #60 tablet 01/12/21 Apixaban [Eliquis] 5 mg PO BID tablet 01/12/21 Morphine Sulfate [Morphine Sulfate ER] 30 mg PO Q12H 02/13/21 Potassium Oral Tab [Klor-Con 10 mEq Tab*] 20 meq PO TID 02/13/21 - Past Medical/Surgical History Diabetic: No -: breast cancer -: liposarcoma -: HTN (resolved) -: mastectomy -: hysterectomy -: R hip replacement Psychosocial/ Personal History: Retired, lives at home by self - Family History Mother Medical History: Diabetes Father Medical History: Cancer Notes: lung cancer Brother Medical History: Hypertension, Diabetes Sister Medical History: Liver disease Notes: cirrhosis - Social History Alcohol use: No CD- Drugs: No Caffeine use: Yes Review of Systems 10-point ROS is otherwise unremarkable Physical Examination - Vital Signs Temperature: 98 F Blood Pressure: 140/80 Pulse: 80 Respirations: 18 Pulse Ox (%): 95 - Physical Exam General: Alert, In no apparent distress HEENT: Atraumatic, PERRLA, Mucous membr. moist/pink, EOMI, Sclerae nonicteric Neck: Supple, 2+ carotid pulse no bruit, No LAD, Without JVD or thyroid abnormality Respiratory: Clear to auscultation bilaterally, Normal air movement Cardiovascular: Regular rate/rhythm, Normal S1 S2 Gastrointestinal: Normal bowel sounds, No tenderness Musculoskeletal: No tenderness, Swelling, Other (mass) Integumentary: No rashes Neurological: Normal gait, Normal speech, Normal strength at 5/5 x4 extr, Normal tone, Normal affect Lymphatics: No axilla or inguinal lymphadenopathy - Studies Laboratory Data (last 24 hrs) 02/12/21 10:24: PT 15.8 H, INR 1.37 02/12/21 10:24: WBC 7.80, Hgb 7.7 L, Hct 23.6 L, Plt Count 137 L 02/12/21 10:24: Sodium 142, Potassium 2.7 L*, BUN 13, Creatinine 0.92, Glucose 90, Magnesium 1.9, Total Bilirubin 0.9, AST 12 L, ALT 14, Alkaline Phosphatase 74 Assessment & Plan - Problems (Diagnosis) (1) Dyspnea Current Visit: No Status: Acute Qualifiers: (2) Heart failure with normal ejection fraction Current Visit: Yes Status: Acute (3) Hypoxemia Current Visit: No Status: Acute (4) Hypokalemia Current Visit: Yes Status: Acute (5) Liposarcoma Current Visit: Yes Status: Acute - Plan Continue with plan of care as mentioned below: 1. Echocardiogram reviewed 2. Continue with diuretics 3. Low-dose beta-davide 4. Patient has been seen by Cardiology and no aggressive intervention 5. Pain control 6. Strict I's and O's 7. Repeat CXR 8. Correct potassium 9. Education regarding diet and treatment of congestive heart failure Discharge Plan: Home Plan to discharge in: Greater than 2 days - Advance Directives Does patient have a Living Will: No Does patient have a Durable POA for Healthcare: No - Code Status/Comfort Care Code Status Assessed: Yes Code Status: Full Code Critical Care: No Time Spent Managing PTS Care (In Minutes): 35
[2021-02-12] MEDS ORDERED: PROMETHAZINE INJ 25 MG/ML AMP ONE ×2 (20:44→21:05)
[2021-02-12] MEDS ORDERED: HYDROMORPHONE HCL 2 MG/ML inj IV ONE (20:45)
[2021-02-12] MEDS ORDERED: HYDROMORPHONE HCL 2 MG/ML inj ONE (20:45)
[2021-02-12] MEDS: PROMETHAZINE INJ 25 MG/ML AMP IV PRN (20:55)
[2021-02-12] MEDS: FUROSEMIDE 40 MG/4 ML VIAL IV SCH (21:00)
[2021-02-12] MEDS: POTASSIUM 25 MEQ EFFERV TAB PO SCH (21:00)
[2021-02-12] MEDS: SPIRONOLACTONE 25 MG TABLET PO SCH (21:00)
[2021-02-12] MEDS ORDERED: FUROSEMIDE 40 MG TABLET ONE (21:06)
[2021-02-12] MEDS ORDERED: POTASSIUM 25 MEQ EFFERV TAB ONE (21:06)
[2021-02-12] MEDS ORDERED: SPIRONOLACTONE 25 MG TABLET ONE (21:33)
[2021-02-13] MEDS: HYDROMORPHONE HCL 1 MG/ML INJ IV PRN ×6 (01:00→20:40)
[2021-02-13] MEDS: PROMETHAZINE INJ 25 MG/ML AMP IV PRN ×6 (01:00→20:41)
[2021-02-13 02:30] VITALS: BMI 36.1
[2021-02-13 03:57] LABS: Absolute Lymphocytes (CBC) 0.5 K/uL (0.7-4.9); Basophils % 0.8 % (0-1.3); Hematocrit 22.1 % (36.0-45.0); Lymphocytes % 8.1 % (15.3-44.8); MPV 7.9 fL (7.6-11.3); RBC Red Blood Cell Count 2.76 M/uL (3.86-4.86)
[2021-02-13 04:33] LABS: Albumin 2.4 g/dL (3.4-5.0); Bilirubin Total 0.9 mg/dL (0.2-1.0); Magnesium 1.9 mg/dL (1.8-2.4); Phosphorus 2.5 mg/dL (2.5-4.9); Protein, Total 6.8 g/dL (6.4-8.2)
[2021-02-13 04:39] LABS: Potassium 2.4 mmol/L (3.5-5.1)
[2021-02-13] MEDS ORDERED: HYDROMORPHONE HCL 1 MG/ML INJ ONE ×2 (04:57→08:31)
[2021-02-13] MEDS ORDERED: PROMETHAZINE INJ 25 MG/ML AMP ONE ×2 (04:57→08:31)
[2021-02-13] MEDS ORDERED: KCL 20 MEQ/100 mL IVPB 20 MEQ/100 ML BAG IV ONE (05:20)
[2021-02-13] MEDS: KCL 20 MEQ/100 mL IVPB 20 MEQ/100 ML BAG IV SCH ×6 (05:29→23:17)
--- NOTE | 2021-02-13 07:09 | EKG ---
Test Date: 2021-02-12 Test Time: 08:50:29 Federal Agent: NATA MEASUREMENT RESULTS: Intervals: Rate: 102 IA: 156 QRSD: 90 QT: 338 QTc: 440 [place]: P: 56 IA: 156 QRS: -4 T: 104 INTERPRETIVE STATEMENTS: Sinus tachycardia T wave abnormality, consider anterolateral ischemia Abnormal ECG Compared to ECG 01/25/2021 20:18:35 Sinus rhythm no longer present T-wave abnormality still present Possible ischemia still present Electronically Signed On 02-13-21 07:04:53 [employer] by Antony Roca
[2021-02-13] MEDS ORDERED: POTASS/SODIUM PHOSPHATE 1 PKT POWD.PACK ONE (07:26)
[2021-02-13] MEDS ORDERED: VALSARTAN 80 MG TAB ONE (07:26)
[2021-02-13] MEDS ORDERED: FUROSEMIDE 40 MG TABLET ONE (07:26)
[2021-02-13] MEDS ORDERED: POTASSIUM 25 MEQ EFFERV TAB ONE (07:26)
[2021-02-13] MEDS ORDERED: KCL 20 MEQ/100 mL IVPB 40 MEQ/200 ML BAG IV ONE (07:27)
[2021-02-13] MEDS: POTASSIUM 25 MEQ EFFERV TAB PO SCH ×2 (08:00→20:41)
[2021-02-13] MEDS: VALSARTAN 80 MG TAB PO SCH (08:00)
[2021-02-13] MEDS: POTASS/SODIUM PHOSPHATE 1 PKT POWD.PACK PO SCH ×3 (08:00→09:33)
[2021-02-13] MEDS ORDERED: FUROSEMIDE 40 MG/4 ML VIAL ONE (08:12)
[2021-02-13] MEDS: FUROSEMIDE 40 MG/4 ML VIAL IV SCH (08:14)
[2021-02-13] MEDS: SPIRONOLACTONE 25 MG TABLET PO SCH ×2 (10:00→20:41)
--- NOTE | 2021-02-13 14:35 | ECHO ---
HEIGHT: 5 ft 8 in WEIGHT: 238 lb 1.588 oz DATE OF STUDY: 02/13/[address]: Scott Coffey MD 2-DIMENSIONAL: YES M.MODE: YES DOPPLER: YES COLOR FLOW: YES TDS: NO PORTABLE: NO DEFINITY: NO BUBBLE STUDY: NO DIAGNOSIS: CONGESTIVE HEART FAILURE CARDIAC HISTORY: CATHERIZATION: NO SURGERY: NO PROSTHETIC VALVE: NO PACEMAKER: NO MEASUREMENTS (cm) DIASTOLIC (NORMALS) SYSTOLIC (NORMALS) IVSd 1.1 (0.6-1.2) LA Diam 3.6 (1.9-4.0) LVEF 37% LVIDd 4.8 (3.5-5.7) LVIDs 3.9 (2.0-3.5) %FS 18% LVPWd 1.1 (0.6-1.2) Ao Diam 2.5 (2.0-3.7) 2 DIMENSIONAL ASSESSMENT: RIGHT ATRIUM: NORMAL LEFT ATRIUM: NORMAL RIGHT VENTRICLE: NORMAL LEFT VENTRICLE: NORMAL TRICUSPID VALVE: NORMAL MITRAL VALVE: NORMAL PULMONIC VALVE: NORMAL AORTIC VALVE: NORMAL PERICARDIAL EFFUSION: NONE AORTIC ROOT: NORMAL LEFT VENTRICULAR WALL MOTION: NORMAL. DOPPLER/COLOR FLOW: MILD TRICUSPID REGURGITATION. COMMENTS: MILD TRCUSPID REGURGITATION. NORMAL LEFT VENTRICULAR SIZE AND FUNCTION. NO WALL MOTION ABNORMALITY. NO EFFUSION. TECHNOLOGIST: OFELIA SANTANA
[2021-02-13] MEDS ORDERED: NS 0.9% VIAL 0 ML ONE (15:49)
[2021-02-13] MEDS ORDERED: WATER FOR INJ,STERILE 10 ML ONE (15:49)
[2021-02-13] MEDS ORDERED: ALTEPLASE 2 MG/VIAL IV ONE (16:00)
[2021-02-13] MEDS ORDERED: KCL 20 MEQ/100 mL IVPB 20 MEQ/100 ML BAG IV SCH (20:00)
[2021-02-14] MEDS: PROMETHAZINE INJ 25 MG/ML AMP IV PRN ×6 (01:20→21:00)
[2021-02-14] MEDS: HYDROMORPHONE HCL 1 MG/ML INJ IV PRN ×6 (01:20→20:59)
[2021-02-14 04:41] LABS: Phosphorus 2.2 mg/dL (2.5-4.9); Potassium 3.1 mmol/L (3.5-5.1)
[2021-02-14] MEDS: SPIRONOLACTONE 25 MG TABLET PO SCH (08:28)
[2021-02-14] MEDS: POTASSIUM 25 MEQ EFFERV TAB PO SCH ×2 (08:28→20:58)
[2021-02-14] MEDS: VALSARTAN 80 MG TAB PO SCH (08:28)
[2021-02-14] MEDS: POTASS/SODIUM PHOSPHATE 1 PKT POWD.PACK PO SCH ×2 (08:29→10:14)
--- NOTE | 2021-02-14 09:27 | P.PN ---
Subjective Date of Service: 02/13/21 Patient continues to feel little bit better. Still with chronic pain. Patient's hypokalemia. Continue supplement Review of Systems 10-point ROS is otherwise unremarkable Physical Examination - Vital Signs Temperature: 97 F Blood Pressure: 134/64 Pulse: 81 Respirations: 16 Pulse Ox (%): 90 - Physical Exam General: Alert, In no apparent distress, Oriented x3 HEENT: Atraumatic, PERRLA, EOMI Neck: Supple, JVD not distended Respiratory: Clear to auscultation bilaterally, Normal air movement Cardiovascular: Regular rate/rhythm, Normal S1 S2 Gastrointestinal: Normal bowel sounds, No tenderness Musculoskeletal: No clubbing, No swelling, No tenderness Integumentary: No rashes Neurological: Normal speech, Normal tone, Normal affect Lymphatics: No axilla or inguinal lymphadenopathy - Studies Medications List Reviewed: Yes Assessment & Plan - Problems (Diagnosis) (1) Dyspnea Current Visit: No Status: Acute Qualifiers: (2) Heart failure with normal ejection fraction Current Visit: Yes Status: Acute (3) Hypoxemia Current Visit: No Status: Acute (4) Hypokalemia Current Visit: Yes Status: Acute (5) Liposarcoma Current Visit: Yes Status: Acute - Plan 1. Continue with diuresing; recent echo with no significant decrease in the ejection fraction. Most likely diastolic heart failure 2. Continue Aldactone and supplement potassium 3. Start a low-dose beta-davide 4. Continue with blood pressure medications; cardiology has done extensive evaluation. 5. Continue with pain control 6. Strict I's and O's 7. Repeat CXR 8. Daily weights 9. Education regarding diet and treatment of congestive heart failure Discharge Plan: Home Plan to discharge in: Greater than 2 days - Advance Directives Does patient have a Living Will: No Does patient have a Durable POA for Healthcare: No - Code Status/Comfort Care Code Status Assessed: Yes Code Status: Full Code Critical Care: No Time Spent Managing PTS Care (In Minutes): 35
--- NOTE | 2021-02-14 09:36 | P.PN ---
Date of Service: 02/14/21 Subjective Patient doing better. Pain still not controlled, but her pain has been difficult to control since her cancer diagnosis; continue to correct potassium Review of Systems 10-point ROS is otherwise unremarkable Physical Examination - Vital Signs Reviewed - Physical Exam General: Alert, In no apparent distress, Oriented x3 Respiratory: Clear to auscultation bilaterally, Normal air movement Cardiovascular: Regular rate/rhythm, Normal S1 S2 Gastrointestinal: Normal bowel sounds, No tenderness Musculoskeletal: No clubbing, No swelling, No tenderness Neurological: Normal speech, Normal tone, Normal affect Assessment & Plan - Problems (Diagnosis) (1) Dyspnea Current Visit: No Status: Acute Qualifiers: (2) Heart failure with normal ejection fraction Current Visit: Yes Status: Acute (3) Hypoxemia Current Visit: No Status: Acute (4) Hypokalemia Current Visit: Yes Status: Acute (5) Liposarcoma Current Visit: Yes Status: Acute - Plan Continue with plan of care as mentioned below: 1. Change to oral diuretic 2. Continue Aldactone and supplement potassium 3. Start a low-dose beta-davide 4. Continue with blood pressure medications; cardiology has done extensive evaluation. 5. Continue with pain control 6. Strict I's and O's 7. Repeat CXR 8. Daily weights 9. Education regarding diet and treatment of congestive heart failure Discharge Plan: Home Plan to discharge in: Greater than 2 days - Advance Directives Does patient have a Living Will: No Does patient have a Durable POA for Healthcare: No - Code Status/Comfort Care Code Status Assessed: Yes Code Status: Full Code Critical Care: No Time Spent Managing PTS Care (In Minutes): 35
[2021-02-14 12:20] LABS: Absolute Lymphocytes (CBC) 0.6 K/uL (0.7-4.9); Basophils % 0.4 % (0-1.3); Lymphocytes % 12.2 % (15.3-44.8); RBC Red Blood Cell Count 3.12 M/uL (3.86-4.86)
[2021-02-14 12:53] LABS: Potassium 2.9 mmol/L (3.5-5.1)
[2021-02-14] MEDS ORDERED: POTASSIUM 25 MEQ EFFERV TAB PO ONE (13:20)
[2021-02-14] MEDS ORDERED: HYDROCORTISONE SUC 100 MG INJ IV ONE (13:21)
[2021-02-14] MEDS ORDERED: KCL 20 MEQ/100 mL IVPB 20 MEQ/100 ML BAG IV SCH (14:00)
[2021-02-14] MEDS ORDERED: Magnesium Sulfate 2gm IVPB 2 G/50 ML BAG IV ONE (14:00)
[2021-02-14] MEDS: AMILORIDE HCL 5 MG TABLET PO SCH (21:00)
[2021-02-15] MEDS: HYDROMORPHONE HCL 1 MG/ML INJ IV PRN ×7 (00:38→23:35)
[2021-02-15] MEDS: PROMETHAZINE INJ 25 MG/ML AMP IV PRN ×7 (00:38→23:35)
[2021-02-15] MEDS: POTASSIUM 25 MEQ EFFERV TAB PO ONE ×2 (03:28→03:33)
[2021-02-15] MEDS ORDERED: POTASSIUM CL SA 10 MEQ TAB PO ONE (03:46)
[2021-02-15] MEDS ORDERED: LOPERAMIDE HCL 2 MG CAPSULE PO STA (03:57)
[2021-02-15 04:55] LABS: Absolute Lymphocytes (CBC) 0.9 K/uL (0.7-4.9); Basophils % 0.5 % (0-1.3); Hematocrit 22.5 % (36.0-45.0); Lymphocytes % 13.8 % (15.3-44.8); MPV 7.5 fL (7.6-11.3); RBC Red Blood Cell Count 2.81 M/uL (3.86-4.86)
[2021-02-15 05:27] LABS: Albumin 2.5 g/dL (3.4-5.0); Bilirubin Total 0.5 mg/dL (0.2-1.0); Magnesium 2.6 mg/dL (1.8-2.4); Protein, Total 7.3 g/dL (6.4-8.2)
[2021-02-15 05:45] LABS: Potassium 2.9 mmol/L (3.5-5.1)
[2021-02-15] MEDS ORDERED: POTASSIUM CL 40 MEQ in NA CHLORIDE 0.9% 500 ML IV SCH ×5 (06:00→08:00)
[2021-02-15] MEDS: POTASSIUM 25 MEQ EFFERV TAB PO SCH ×2 (07:15→20:05)
[2021-02-15] MEDS: VALSARTAN 80 MG TAB PO SCH (08:37)
[2021-02-15] MEDS: KCL 20 MEQ/100 mL IVPB 20 MEQ/100 ML BAG IV SCH ×2 (08:38→10:38)
[2021-02-15] MEDS ORDERED: POTASSIUM PHOS IN 0.9 % NACL 15 MMOL/250 ML BAG IV ONE (09:00)
--- NOTE | 2021-02-15 09:02 | P.PN ---
Date of Service: 02/15/21 Subjective Patient still hypokalemic and anemic. Will transfuse 1 units of packed red blood cells and replace potassium. Anticipate discharge afterwards. Review of Systems 10-point ROS is otherwise unremarkable Physical Examination - Vital Signs Reviewed - Physical Exam General: Alert, In no apparent distress, Oriented x3 Respiratory: Clear to auscultation bilaterally, Normal air movement Cardiovascular: Regular rate/rhythm, Normal S1 S2 Gastrointestinal: Normal bowel sounds, No tenderness Musculoskeletal: No clubbing, No swelling, No tenderness Neurological: Normal speech, Normal tone, Normal affect Assessment & Plan - Problems (Diagnosis) (1) Dyspnea Current Visit: No Status: Acute Qualifiers: (2) Heart failure with normal ejection fraction Current Visit: Yes Status: Acute (3) Hypoxemia Current Visit: No Status: Acute (4) Hypokalemia Current Visit: Yes Status: Acute (5) Liposarcoma Current Visit: Yes Status: Acute - Plan Continue with plan of care as mentioned below: 1. Change to oral diuretic 2. Continue Aldactone and supplement potassium 3. Start a low-dose beta-davide 4. Continue with blood pressure medications; cardiology has done extensive evaluation. 5. Continue with pain control 6. Strict I's and O's 7. Repeat CXR 8. Daily weights 9. Education regarding diet and treatment of congestive heart failure Discharge Plan: Home Plan to discharge in: Greater than 2 days - Advance Directives Does patient have a Living Will: No Does patient have a Durable POA for Healthcare: No - Code Status/Comfort Care Code Status Assessed: Yes Code Status: Full Code Critical Care: No Time Spent Managing PTS Care (In Minutes): 35
[2021-02-15] MEDS: AMILORIDE HCL 5 MG TABLET PO SCH ×2 (09:39→20:03)
[2021-02-15] MEDS ORDERED: FUROSEMIDE 20 MG/ 2ML VIAL IV SCH (10:00)
[2021-02-15] MEDS ORDERED: NA CHLORIDE 0.9% 500 ML ONE (10:54)
[2021-02-15] MEDS ORDERED: POTASSIUM PHOS 30 MM in NA CHLORIDE 0.9% 500 ML IV ONE (11:00)
[2021-02-15 20:05] LABS: Hematocrit 27.7 % (36.0-45.0)
[2021-02-15 20:47] LABS: Phosphorus 3.6 mg/dL (2.5-4.9); Potassium 3.3 mmol/L (3.5-5.1)
[2021-02-15] MEDS: POTASSIUM CL SA 10 MEQ TAB PO SCH (21:30)
[2021-02-15] MEDS ORDERED: KCL 20 MEQ/100 mL IVPB 20 MEQ/100 ML BAG IV SCH (22:00)
[2021-02-16] MEDS: PROMETHAZINE INJ 25 MG/ML AMP IV PRN ×3 (03:42→12:16)
[2021-02-16] MEDS: HYDROMORPHONE HCL 1 MG/ML INJ IV PRN ×3 (03:42→12:15)
[2021-02-16 05:25] LABS: BUN Blood Urea Nitrogen 8 mg/dL (7-18); Bicarbonate 26 mmol/L (21-32); Glucose Level 83 mg/dL (74-106); Magnesium 2.2 mg/dL (1.8-2.4); Phosphorus 3.1 mg/dL (2.5-4.9); Potassium 3.4 mmol/L (3.5-5.1); Sodium Level 144 mmol/L (136-145)
[2021-02-16] MEDS: KCL 20 MEQ/100 mL IVPB 20 MEQ/100 ML BAG IV SCH ×2 (05:44→08:49)
[2021-02-16] MEDS: VALSARTAN 80 MG TAB PO SCH (08:50)
[2021-02-16] MEDS: POTASSIUM CL SA 10 MEQ TAB PO SCH (08:50)
[2021-02-16] MEDS: AMILORIDE HCL 5 MG TABLET PO SCH (08:50)
[2021-02-16 11:42] VITALS: BP 161/87; TEMP 97.2; O2SAT 97
[2021-02-16] MEDS ORDERED: POTASSIUM 25 MEQ EFFERV TAB PO ONE (12:07)
[2021-02-16] MEDS ORDERED: POTASSIUM 25 MEQ EFFERV TAB PO SCH (16:00)
== END 2021-02-16 13:30 | disposition home or self-care (01) | DRG 291 ==
LOC: ER 08:18 → ERHOLD 13:48 → 4TH 02-13 08:57
PROVIDERS: ADMIT Hospitalist; ATTEND Hospitalist
DX: I11.0 Hypertensive heart disease with heart failure (principal); I50.33 Acute on chronic diastolic (congestive) heart failure; E87.6 Hypokalemia; C50.912 Malignant neoplasm of unspecified site of left female breast; C50.911 Malignant neoplasm of unspecified site of right female breast; G89.29 Other chronic pain; D64.9 Anemia, unspecified; R09.02 Hypoxemia; Z79.01 Long term (current) use of anticoagulants; Z91.041 Radiographic dye allergy status; Z90.710 Acquired absence of both cervix and uterus; Z90.13 Acquired absence of bilateral breasts and nipples; Z79.899 Other long term (current) drug therapy; Z96.641 Presence of right artificial hip joint; Z60.2 Problems related to living alone; Z20.822 Contact with and (suspected) exposure to COVID-19
CPT/HCPCS: 36415; 36430; 71045; 80048; 80053; 80076; 82088; 82533; 83735; 83880; 84100; 84132; 84244; 84484; 85014; 85018; 85025; 85610; 86850; 86900; 86901; 93005; 93306; 96365; 96366; 96375; 99285; J1170; J1720; J1940; J2405; J2550; J2997; J3475; J3480; J7040; P9016; U0003

== ENCOUNTER 2021-02-25 15:05 | Emergency (ER) | payer OTHER ==
--- OUTSIDE RECORDS SUMMARY | 2021-02-25 15:16 | XMS REPORT | Continuity of Care Document ---
:1960 Author Organization [facility] t Address [address] [place] [address] Care Team Providers Name Role Phone [phone] Primary Care Physician Unavailable Nile TEJADA Attending Clinician Unavailable SYSTEM, NOT IN Attending Clinician Unavailable Jasmina MUNIZ Attending Clinician Unavailable Juju ROMERO Attending Clinician Unavailable MAYE Attending Clinician Unavailable STEFANO Attending Clinician Unavailable SCOTT Attending Clinician Unavailable JAVI BRAY Attending Clinician Unavailable DIONTE Attending Clinician Unavailable LEONOR Attending Clinician Unavailable JUAN Attending Clinician Unavailable Nile Tejada MD Attending Clinician Boom Carlin MD Attending Clinician Caridad Escalante MD Attending Clinician Isabelle Ramos MD Attending Clinician [phone] Lazaro LYNN Attending Clinician ANA PAULA TAVARES Attending Clinician Unavailable STEVE GARCIA Attending Clinician Unavailable Nile TEJADA Admitting Clinician Unavailable JAVI BRAY Admitting Clinician Unavailable LEONOR Admitting Clinician Unavailable BOOM CARLIN Admitting Clinician Unavailable NARGIS Admitting Clinician Unavailable STEVE GARCIA Admitting Clinician Unavailable Payers Payer Name Policy Type Policy Number Effective Date Expiration Date S [facility] MEDICARE A B [id number] AETNA OPEN ACCESS [id number] 2017 O NAP 00:00:00 AARP MEDICARE [id number] 2020 COMPLETE CHOICE 00:00:00 PLAN 2 [facility] [id number] 2020 [facility] - MEDICARE MGD 00:00:00 - Medical [facility]ARE[facility]LLMED Center [id number] 2020-Present MEDICARE PART A [id number] 2020 AND B 00:00:00 Problems Condition Condition Condition Status Onset Resolution Last Treating Co mments Source Name Details Category Date Date Treatment Clinician Date Venous Venous Disease Active [facility] obstruct[facility] obstructio 6 [facility] - n n 00:00: Medical 00 Ullin Mass of Mass of Disease Active [facility] iliopsoas iliopsoas 6 [facility] - muscle muscle 00:00: Medical group group 00 Ullin Pyoderma Pyoderma Disease Active Overview: [facility] gangrenosu gangrenosu 11-10 Post [facility] - m m 00:00: surgical Medical 00 Ullin Hip 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[facility] osteoarthr osteoarthr 10-29 [facility] - itis itis 00:00: Medical 00 Ullin Diabetes Diabetes Disease Active [facility] t mellitus mellitus 10-29 [facility] - 00:00: Medical 00 [place] Hypertensi Hypertensi Disease Active [facility] on on 10-29 Lu - 00:00: Medical 00 Ullin Unilateral Unilateral Disease Active [facility] primary primary 10-07 [facility] - osteoarthr osteoarthr 00:00: Me dical itis, itis, 00 Ullin right hip right hip Surgical Surgical Disease [...] [facility] - adverse 00:00: Medical reaction 00 Ullin s Family History Family Member Diagnosis Comments Start Date Stop Date Source Natural father Lung cancer [facility] Natural mother Diabetes [facility] Social History Social Habit Start Date Stop Date Quantity Comments Source Sex Assigned At [facility] Tobacco use and 2017-11-18 2017-11-18 Never used [facility] Diop - exposure 00:00:00 00:00:00 Medical Center Alcohol intake 2017-11-18 2017-11-18 Current drinker HOMAR Rodriguez - 00:00:00 00:00:00 of alcohol [facility] Center (finding) Alcohol Comment 2017-10-06 2017-10-06 SOCIALLY [facility] Diop - 00:00:00 00:00:00 Medical Center Smoking Status Start Date Stop Date Source Never smoker [facility] [place] Medications Ordered Filled Start Stop [...] 00 :00 3 days. Center packet polyethylen 2020-2020- No 17g QD Take [address] [facility] e glycol 6-24 06-27 by mouth [facility] - (GLYCOLAX) 00:00: 23:59 daily for M edical 17 gram 00 :00 3 days. Center packet polyethylen 2020-2020- No 17g QD Take 17 [...] mouth Medical capsule 44 daily. Center famotidine 2020-2020- No 20mg Take 1 [facility] [...] spasms for up to 10 days. HYDROmorpho 2020-0 2020- No 2mg Take [address] [facility] [...] 150 mg/mL 00:00: 00:00 (140 mg Medi pelra injection 00 :00 total) Center subcutaneo usly every 12 (twelve) hours for 30 days. enoxaparin 2020-2020- No 140mg Inject [facility] (LOVENOX) 09-06 [...] 12 (twelve) hours for 30 days. apixaban 2020-2020- No 5mg Q.5D Take [...] Take [address] [facility] [address] (ELIQUIS) 5 6-11 -23 tablets Luke s - mg Tab 00:00: 00:00 (10 mg Medical tablet 00 :00 total) by Center mouth 2 (two) times daily for 7 days. oxyCODONE-a 2020- No 1{tbl} Take [address] cetaminophe 6-11 -23 tablet by Bret kes - n 00:00: 00:00 mouth Medical (PERCOCET) 00 :00 every 6 Center 10-325 mg (six) per tablet hours as needed for Pain for up to 10 days. Max Daily Amount: 4 tablets apixaban 2020- No 10mg Q.5D Take [address] (ELIQUIS) 5 08-25- tablets Luke s - mg Tab 00:00: [...] days. Max Daily Amount: 4 tablets sodium 2018-0 Yes 1g Inject 1 g [...] blood 2020-09-06 16:21:00 161 mm[Hg] [facility] Diastolic blood 2020-09-06 16:21:00 75 mm[Hg] [facility] Heart rate 2020-09-06 16:21:00 87 /min [facility] Body temperature 2020-09-06 16:21:00 35.78 Lovely [facility] Respiratory rate 2020-09-06 16:21:00 18 /min [facility] Oxygen saturation in 2020-09-06 16:21:00 97 /min [facility] Arterial blood by Medical Ce nter Pulse oximetry Body weight 2020-09-06 06:00:00 141.658 kg [facility] BMI 2020-09-06 06:00:00 50.41 kg/m2 [facility] Body height 2020-08-20 18:00:00 167.6 cm [facility] Procedures Procedure Date / Time Performed Performing Clinician [facility] e CT CHEST WITH IV CONTRAST 2020-09-05 12:35:00 Vandana eTjada [facility] COMPREHENSIVE METABOLIC 2020-09-05 05:16:00 Vandana Tejada [facility] 2D ECHO W/ DOPPLER 2020-09-05 01:05:41 Vandana Tejada [facility] (CW/PW/COLOR) [facility] SARS-COV2/RT-PCR ([facility] & 2020-09-03 21:48:[address] [facility] - REF LABS) [facility] CBC W/PLT COUNT & AUTO 2020-09-03 06:17:[address] [facility] CBC (HEMOGRAM ONLY) 2020-09-02 04:36:00 Hari Carlin [facility] PROTHROMBIN TIME/INR 2020-09-02 04:36:00 Shabana Perea [facility] CBC (HEMOGRAM ONLY) 2020-09-01 03:48:00 Raegan, [facility] PROTHROMBIN TIME/INR 2020-09-01 03:48:00 [facility], [facility] US CORE BIOPSY 2020-08-31 18:48:00 Vandana Tejada [facility] TISSUE EXAM 2020-08-31 18:37:00 Vandana Tejada [facility] VITAMIN B12 AND FOLATE 2020-08-31 04:45:00 Vandana Tejada [facility] CBC (HEMOGRAM ONLY) 2020-08-31 04:45:00 Raegan [facility] PROTHROMBIN TIME/INR 2020-08-31 04:45:00 [facility], [facility] CT ABDOMEN/PELVIS WITH IV 2020-08-30 10:28:00 [facility] CONTRAST [facility] CTA AAA AND RUNOFF 2020-08-30 10:28:00 [facility] BUN AND CREATININE 2020-08-30 05:17:00 [facility] W/[facility] CBC (HEMOGRAM ONLY) 2020-08-30 05:17:00 Raegan [facility] PROTHROMBIN TIME/INR 2020-08-30 05:17:00 [facility] HC ARTERIAL DOPPLER LEG 2020-08-29 16:05:[address] [facility] UNI [facility] CBC (HEMOGRAM ONLY) 2020-08-29 12:50:00 [facility] HEPARIN ASSAY - LOW 2020-08-29 12:50:00 [facility] - MOLECULAR WEIGHT [facility] CBC (HEMOGRAM ONLY) 2020-08-29 05:03:00 Raegan, [facility] PROTHROMBIN TIME/INR 2020-08-29 05:03:00 [facility] BUN AND CREATININE 2020-08-28 16:37:00 Gadicherlakhwinder, [facility] - W/RATIO [facility] VENOUS DOPPLER LEG, LEFT 2020-08-28 12:43:[address] Tricia [facility] CBC (HEMOGRAM ONLY) 2020-08-28 04:42:00 Raegan [facility] PROTHROMBIN TIME/INR 2020-08-28 04:42:00 [facility] SARS-COV2/RT-PCR ([facility] & 2020-08-27 18:10:00 Gadicherca, Tricia [facility] - REF LABS) [facility] PROTHROMBIN TIME/INR 2020-08-27 12:22:00 [facility] CBC (HEMOGRAM ONLY) 2020-08-27 04:06:00 [facility] PROTHROMBIN TIME/INR 2020-08-26 11:47:00 [facility] CBC (HEMOGRAM ONLY) 2020-08-26 11:47:00 [facility] CBC (HEMOGRAM ONLY) 2020-08-26 06:00:00 [facility] PROTHROMBIN TIME/INR 2020-08-25 18:11:00 [facility] CBC W/PLT COUNT & AUTO 2020-08-25 14:27:00 [facility] DIFFERENTIAL [facility] CBC (HEMOGRAM ONLY) 2020-08-25 06:58:00 [facility] 2020-08-25 06:49:00 [facility] AP[facility] 2020-08-24 [facility]:45[facility] 2020-08-24 12:42:00 [facility] BASIC METABOLIC PANEL (7) 2020-08-24 05:41:00 [facility] CBC (HEMOGRAM ONLY) 2020-08-24 05:41:00 Hari Carlin [facility] APTT 2020-08-24 05:41:00 [facility] 2020-08-23 21:14:00 [facility] ONLY) 2020-08-23 14:11:00 [facility] APTT 2020-08-23 14:11:00 [facility] VENOUS DOPPLER LEG, LEFT 2020-08-23 12:46:00 [facility] BASIC METABOLIC PANEL (7) 2020-08-23 04:08:00 BorisTom yoon [facility] CBC (HEMOGRAM ONLY) 2020-08-23 04:08:00 Hari Carlin [facility] BASIC METABOLIC PANEL (7) 2020-08-22 05:37:00 BorisTom yoon [facility] CBC (HEMOGRAM ONLY) 2020-08-22 05:37:00 Hari Carlin [facility] US EXTREMITY NON-VASCULAR 2020-08-21 14:30:00 Hari Carlin [facility] LEFT [facility] CBC (HEMOGRAM ONLY) 2020-08-21 05:50:00 Hari Carlin [facility] COMPREHENSIVE METABOLIC 2020-08-21 05:50:00 Hari Carlin [facility] PROTHROMBIN TIME/INR 2020-08-21 05:50:00 Hari Carlin [facility] XR HIP 2 VIEWS LEFT 2020-08-20 18:25:00 Hari Carlin [facility] XR LUMBAR SPINE 2 OR 3 2020-08-20 18:20:00 Hari Carlin [facility] - VIEWS [facility] XR KNEE 3 VIEWS LEFT 2020-08-20 18:14:00 Hari Carlin [facility] CBC W/PLT COUNT & AUTO 2020-08-20 15:02:00 Hari Carlin [facility] DIFFERENTIAL [facility] COMPREHENSIVE METABOLIC 2020-08-20 15:02:00 Hari Carlin [facility] - PANEL [facility] Center MAGNESIUM 2020-08-20 15:02:00 Hari Carlin [facility] PHOSPHORUS 2020-08-20 15:02:00 Hari Carlin [facility] LACTATE DEHYDROGENASE 2020-08-20 15:02:[address] [facility] (LDH) [facility] URIC ACID 2020-08-20 15:02:00 Hari Carlin [facility] Plan of Care Planned Activity Planned Date [...] Medica l Center colon (procedure) [code = 921574397] Future Scheduled 2018-11-[address] [facility] - Test 00:00:00 malignant neoplasm of Medica l Center colon (procedure) [code = 291128837] Future Scheduled 2018-11-[address] [facility] - Test 00:00:00 malignant neoplasm of Medica l Center colon (procedure) [code = 040430454] Future Scheduled 2017-10-[address] [facility] kes - Test 00:00:00 measurement Medical Center (procedure) [code = 35393576] Future Scheduled 2017-10-[address] [facility] k[facility] - Test 00:00:00 measurement Medical Center (procedure) [code = 23351446] Future Scheduled 2017-10-[address] [facility] kes - Test 00:00:00 measurement Medical Center (procedure) [code = 93791589] Future Scheduled 2010 SHINGLES VACCINES (1 CHI [...] Test 00:00:00 (procedure) [code = Medical Center 94316669] Future Scheduled [address] - Test 00:00:00 (procedure) [code = Medical Center 21980916] Future Scheduled [address] - Test 00:00:00 (procedure) [code = Medical Center 36527857] Future Scheduled [address] [facility] - Test 00:00:00 [facility] cervix (procedure) [code = 675004119] Future Scheduled [address] [facility] - Test 00:00:00 [facility] cervix (procedure) [code = 420571756] Future Scheduled [address] [facility] - Test 00:00:00 [facility] cervix (procedure) [code = 671148936] Future Scheduled 1979 DTAP/TDAP/TD VACCINES CH I [...] - Test 00:00:00 [code = COVID-[address] VACCINE (1)] Future Scheduled 1972 COVID-19 [...] 00:00:00 examination Medical Center (regime/therapy) [code = 639910048] Future Scheduled 1970 Urine screening [facility] - Test 00:00:00 protein (procedure) Medical Center [code = 888084907] Future Scheduled 1970 DIABETIC EYE EXAM [facility] - Test 00:00:00 [code = DIABETIC EYE Medical Center EXAM] Future Scheduled [address] [facility] - Test 00:00:00 examination Medical Center (regime/therapy) [code = 586502887] Future Scheduled 1970 Urine screening [facility] - Test 00:00:00 protein (procedure) Medical Center [code = 147169775] Future Scheduled 1970 DIABETIC EYE EXAM [facility] - Test 00:00:00 [code = DIABETIC EYE Medical Center EXAM] Future Scheduled [address] [facility] - Test 00:00:00 examination Medical Center (regime/therapy) [code = 153910668] Future Scheduled 1970 Urine screening [facility] - Test 00:00:00 protein (procedure) Medical Center [code = 332019619] Future Scheduled [address] [...] es - Test 00:00:00 [facility] breast (procedure) [code = 061634451] Future Scheduled [address] - Test 00:00:00 [facility] breast (procedure) [code = 351257069] Future Scheduled [address] [facility] - Test 00:00:00 [facility] breast (procedure) [code = 922620306] Encounters Start End Encounter Admission Attending Care Care Encounter Source Date/Time Date/Time Type Type Clinicians Facility Department ID 2020-12-24 Inpatient ER LOIDA TEJADA Inter Rad [id number] [facility] 00:09:17 VANDANA 2020-11-21 Outpatient SYSTEM, JUAN MARTINEZ [id number] 11:08:21 PROVIDER Holland o lashonda 2020-11-02 Inpatient EL MUNIZ, MDA JUAN [id number] 23:20:41 GAURAV And erso R n 2020-11-02 Inpatient EL MUNIZ, MDA JUAN [id number] 23:20:37 GAURAV And erso R n 2020-10-28 [facility] [id number] [facility] 00[facility]:[address] [facility] 2020-10-17 Outpatient SYSTEM, JUAN MARTINEZ [id number] 12:21:12 PROVIDER Holland o lashonda 2021-02-20 2021-02-20 Outpatient EL MUNIZ, MDA MDA [id number] 12:57:43 17:49:39 GAURAV Ferreira derso R n 2021-02-16 2021-02-16 Outpatient EL MUNIZ, MDA MDA [id number] 08:46:05 08:46:05 GAURAV Ferreira derso R n 2021-02-16 2021-02-16 Outpatient EL MUNIZ, MDA MDA [id number] 08:46:01 08:46:01 GAURAV Ferreira derso R n 2021-02-14 2021-02-14 Outpatient EL NICK, MDA MDA [id number] 16:13:03 16:13:03 KRYSTA Sandra so n 2021-02-14 2021-02-14 Outpatient EL NICK, JUAN MARTINEZ [id number] 16:11:50 16:11:50 KRYSTA Sandra so n 2020-10-28 2020-11-03 Inpatient UR MUNIZ, MDA Sarcoma [id number] 08:47:00 13:55:00 GAURAV Ferreira derso R n 2020-11-03 2020-11-03 Inpatient EL MAYE, MDA MDA [id number] MD 08:41:05 09:10:15 BIJU Lino o n 2020-11-02 2020-11-02 Inpatient EL MUNIZ, MDA MDA [id number] MD 22:10:35 22:18:01 CLAYCHAS rosalesso R n 2020-11-02 2020-11-02 Inpatient EL MAYE, MDA MDA [id number] MD 17:03:33 19:31:59 BIJU Lino o n 2020-11-02 2020-11-02 Inpatient EL MUNIZ, MDA MDA [id number] MD 08:16:22 08:26:03 CLAYBREJEAN Hanna rosalesso R n 2020-10-31 2020-10-31 Inpatient EL STEFANO, MDA MDA [id number] MD 15:19:32 21:47:10 BAL gallego 2020-10-30 2020-10-30 Inpatient EL MUNIZ, MDA MDA [id number] MD 04:31:13 04:49:40 GAURAV Hanna rosalesso R n 2020-10-29 2020-10-29 Inpatient EL STEFANO, MDA MDA [id number] MD 18:24:24 19:40:21 BAL gallego 2020-10-29 2020-10-29 Inpatient EL SCOTT, MDA MDA [id number] MD 18:24:28 19:36:56 SUE gallego 2020-10-29 2020-10-29 Inpatient EL SCOTT, MDA MDA [id number] MD 10:00:26 10:24:36 SUE gallego 2020-10-28 2020-10-28 Inpatient EL SCOTT, MDA MDA [id number] MD 22:30:59 22:52:26 SUE gallgeo 2020-10-28 2020-10-28 Emergency EL KATARINA, MDA MDA [id number] MD 10:57:00 11:46:41 BRENDAN gallego 2020-10-14 2020-10-23 Inpatient ER SCOTT, MDA Sarcoma [id number] MD 16:40:00 16:38:00 SUE gallego 2020-10-21 2020-10-21 Inpatient EL SOMAIAH, MDA MDA [id number] MD 18:46:01 19:27:32 BOB Carsoners o n 2020-10-21 2020-10-21 Inpatient THEA RAPP MDA MDA [id number] 14:16:27 14:16:55 BOB Lino o n 2020-10-20 2020-10-20 Inpatient THEA RAPP MDA MDA [id number] 20:10:36 20:13:24 BOB Lino o n 2020-10-17 2020-10-17 Inpatient THEA VILLAVICENCIO MDA MDA [id number] 15:00:32 15:42:49 BIJU Lino o lashonda 2020-10-16 2020-10-16 Inpatient THEA RAPP, MDA MDA [id number] 09:18:38 09:49:47 BOB Lino o lashonda 2020-10-15 2020-10-15 Inpatient THEA RAPP MDA MDA [id number] 11:01:50 11:06:18 BOB gallego 2020-10-14 2020-10-14 Emergency THEA GALVEZ, MDA MDA [id number] 19:53:40 20:54:56 ALEXYS Sandra so lashonda 2020-10-14 2020-10-14 Emergency STEVEN PORTER MDA MDA [id number] 17:59:26 17:59:31 Holland gallego 2020-08-20 2020-09-06 [facility] ER Vandana Tejada [facility] [id number] 13:34:00 17:17:00 Encounter Hari Carlin [facility] Dariusserenity Bryant 2020-08-20 2020-08-20 Travel [facility] [id number] [facility]00 00:[facility]:00 [facility] Results Test Description Test Time Test Comments Results Result Comments Source Tissue Exam 2020-09-14 10:56:00 Test Item Value Reference Range Interpretation Comme nts Case Report (test code = 104) Surgical Pathology Report Case: [id number] Authorizing Provider: Vandana Tejada MD Collected: 08/31/2020 06:37 PM Ordering Location: [address] Received: 09/01/2020 08:13 AM Service Pathologist: Thien Radford MD Specimen: Groin, Left, left iliopsoas mass biopsy ADDENDUM (test code = 3381) [id number] gTNghoXKivyNshz84mVH9lJ04IK6iDCCkFuR0TU HrbmD7Jcf2YPScMSLfoTBsQ078e8gsa3wvffYfl OE1nDdgKQIvIFAqSRbrTMMmMjXwXU7trG9dyNke mY6tpFQluYXazREzaGQpkZNjRGJqsqTikw8sGJH xneBgnN6vpgNZBOIxXE5vnoR5nlH2UOD0mCKiez AjeTefh2OwRsWuXDsrfwF1jpTbRDTfh7NafOp9G KMnq7LkH2JvAI3vJWobdIArygBtsuMlHAAmckSp Zb9kTOvwugB4bK7iXANeOUEeQIYgl67xocaoSY3 FZOOnuU4unGsaqNQbZ6vvJMTohVulHDwCTKUuWC YHISH4QNIlxtCrR0QPURUjLBYpp9hdRuEtWVKkk rUhmY6lDKpqRhkjM0ycPenomZXswsTqcKAmnPFx STObxpemzijxKbDxgPSaQDF9skY8PDSpHNufOVN aqNXuJPVsYCSqZJ3rdZVtzOduUPAaoUawIEKiGE UgdrGcJYFtz96uyOUvuLTvrDg3i7leKNEfLSN6p hCaLCQbVSSiXFTqQCUauGFdIH3tRQQmPFBizfEp iSApSfYInWArMRQjwiLhmb7tgmBrQOlkxOUrpcL ruWUwuORqgTr8h2ToLaSsoKu6nzOxOHDfGOVumk YuILswn3C4VBOxjKkxmqAyjRZsNO0vUBFwPLEuU bBrIHCxv2Zciq2jfLOyBFBcmyIInvThBCzcWSG0 sDXdvlK7hBFtCR8rBWBkGDVnNARmu10axUIodI9 xTKDowm5gmwN6CNYta9ehctKvXDwvNTWlgc7dOH GcqI3oWbBhhVBizLgyIA17XnzsEZLkvCPbUJLqd IQnB3DzOFT4iKrdXFBfQTMxFfIqiiRcDSYpSW7A KPMxVIFfg76lXMQlfzDki45slEk8ZOJbo04yTIL vLDUmQSVaQOOzJVQrcY0peVT3sBfkKRRpcGddnh 1ynHJqHHAybyTUaiNrEEAjoHIqdB3fhcKgnKRrI BMuMWg7MHYqDkHCuB6zCKGaQF1sP3opEPeocniz YXJ9 DIAGNOSIS (test code = 3220) s0rdgOXxMDLcp6zuMCBmbVYpYjPoZgMsAyCcEn p cdWMxIHtccnRmMVxlcGljOTIwMlxhbnNpXHNwbH QgC3YiolmmHMuzHC2eIT9klTsjsQEswUSiEIQyM tNjt7geu314jGBtg4zmYBYBsozngOd3oNamX20u h8R2QrksF02qaUSeSGlimZJyiwuyedIqXFTZLdR zUPTYRYOXBIsSJE5UJ97TRtZPWLDNPBJLXV7SX1 i8JVLydmEMQAwXKHpLAIXCKHodVvAWBEuZJ72jQ DMuhdKFAA9TFOVFRkFKNzYYHIPQIPfFCkMLNG7G UI4EVJuTWZRUG9ULBA0MORyWYO7UHusaBBWkFVC OKH8FFJ7mAiSFH1MMUEZSNMYYRNvXZe4yMEHmow 78STG2ZdZsl8S9PRG1AGDqVHWnd5deFNRecWRdP wOkOzDjZgLkYdxdaEXtXDAwBeUkd2kcm110xCMb m2mzMXBzAaC8rEAfMSVmyUVzK088KRRzDUcli3n hr3JsLBPepFYks7K4NRPOwptpmKl8oVkgW98pz4 M0WdxcN2djAUCaIAFeK9DhDM0rXRTjAop3KRW2E TK9MTVfIRJrS6AbVK5mQGQxoBDwMDk3s3eswOwg HCIvKJB0t2gmJSmvceTcHI9zdm4ugOn5r5znxrX bIKWcFZUfzYTMXNHxR2EvcYqeXv0nkFn6kHgsLc baUCH4Gbe7HX9ckb23aug3lXhzAYNbogyyYuE3H AtkSPEivdxoORl2XEioACOaiYU0MSVloWVxK8Iq EUJmXQ5exfh8WAX5XJnhJUPsGtH7IVDhrXTjHFL wpBbwGRape827WFN7SfInYI4mV5Wts6I7gW1olF MqTITcpFDjJxEaTOUlzd5auFPeBSyxm3PvNNI0v wB4bPWyiZMvTVIhZtB8BYskMT0umr55ANXdMLQ4 xf0iqQQylMzctmHttYBbGZagK0VmHYHay815BKP iX9PxSILed0W5ktWnUrIgVHVihWI4tsH8UHWaMB 0iozdbo0rpHElcYObgBHTdynE1xeG3ZFVgeTWtG 2EzzG1tZXVnMA2chrzfa9gqANL4ERvjLJIfEEO0 BmPkYGVja5Cvibo7UkYka5YrgFXoVOevD15jg24 2GOVbvtIhL2vhgGHgxsgccITzrbsnCYelclO8YE PpRPvyshxsQSJpFNwmI6jzZdNnNWBhcGntKUuux 2CxVWRvXLYhYuOraSGeAOVdFao5BTGziGIvCVVs SfAvD3saejqkJvXSNBGiy3siD5olmUPJlJSfV2L aILojrlJiBKjlLTtaTBRpWHY6WN41MEoaTCErdk 19 CPT Code(s) (test code = 3357) p4vvyWTsMFVluEH2GjFlMRNbh9kvu3SifNFe cGF lQRnncAYxxsTsxk38dGF4cQ00YM3eBBNvDtC3QG XxusN5Voh0TICyMJZylHGkA755y0iic1szkhWky YW0sAhxZHZsRMEeNAufCGSuKtRiPXoxRFCuAOz5 VaRpPDJ1IDX6HRp5PGEzdb4= CLINICAL HISTORY (test code = 3356) i3vqgVGwABPmbSD3TfPfJNYzj1haf1T sdHBncGF gYOuizGLhotWekt93uNW1aI41ML8tUTWyQhX7IV CueaT8Rip6JCDnZIRduEUiT440r2uns2kmhgUbz MW2bXkxIYIoCSBeSPavXMHvQcPbPFYecFRoix6n jjLqrUW5H9ljgX5he76vbcYlDYTiHNA9YwGbmJQ 4IgOptJSzKUGtHZpyOFO4 SPECIMEN SOURCE (test code = 3377) u6tcuVSaSRXdxPM6PzWtYUYyo1pvt5Qb dHBncGF lCJcyrTLtitRudw58nGC3zR09XU3zTEUxBpR8VF SjzsO8Cth1NFRvHMKwhWGoH846f4rre2yaemIex HS6dSdcRRUiLOYlQYjhGKHjMtIhBJRhvBPxjn8u ad3zgOzkqAEzWAMnbPCzxR== GROSS DESCRIPTION (test code = 3366) t2aykGOzKBEebCZzEbWqBDQhSVNog5 lcZGVmbGF wBmNqDgTeSrZlCbxrwZMbRZNqWzMdt2tev457pR Bdr3ssTHXBuvpukMc9f0paWLGlSjB3wJWnQXhkN 8hxvwKqhQShATGtWKa9vV51QUDzpJ8mgRIpQAoj oqNvSkM0DBznEGKgAmH5DBMiyVWcXIWoK7iyYBG cPOceFSQbOEngiAHgEQM8sTith2V1kKSlqTSiyZ wiWmCxUiHlDGDOy7NqZOm4aWckW3VeRKDiEzE2j AVkNQUkHUyvDKGgFGTcsvB7rP70VEhppyZ0bSVu o9Ilh40yf311hI5buDEnDPM5LIFtMBZebPIwTPA cYIT4CBOuqXXlX4v1ZtUwbZExF1O7VtVkcLCmA3 D6KeKnxCHfB5X4PlMynFCnBQIqqUOrIy1qhOPqj ARpzu9duh31YRE8m5YiaEfxXSZ4PHR6HgQwKe0y xXUrIWQiOMOizGRjGICyQZ7qkFJtXMRrfQ1lsyi rPPIrZrAbcliiJVXdmJmgjwXeYv4nvJfeJUF8YA rcE0exfM6cTxK1ROjjD3unyE1sOJl5ULgxvZX7H TAibU3uGE5ifjvea9taDeMqKZ5alrkrx5kxMjUb CS9hlis9z3koEgLfNW3jcqhkr2hiTbZzRIinGPJ qezpdLUAyt5UcajwiDWBoy4VsD6ZniPyrH91cuX rtX29mGWBpjDrlmY1voOyueK3jOmUdMeQrSLltA XJkXHBsYWluXGYxXGZzMjBcbGFuZzEwMzNcaGlj sDyhYMnnPgDaHZQtECbaV4ycHqTzToHfPHRZKnU YHVEjnNMoGMVyzzFjs4XzSLmywzGsTYPiwRQhHW mvqDmvaNlaLGRbfXvlwnAwG3K2vpTcNX1wPTJtH IDzU4RiSSSzU06mIKIzbJ8uTJJaXZ5fYWQcxf0m brpbdSPfpVWeDU4rHGZntmFzv0SaJF7mJG87cVA ykOtnYPuyIYxod2ykyQBgd85smZR9cCGcpHJxI6 1kCNNmleYwH0pxTuRvHqOgGA1jQQSoBTkhXJjxt wi8tDPtoCSobVJ7DFIwyL6gsS95yiAjmuUIFD8t wBstLBoqnW8bBHLcXQefTPUrT9TesO1hVX2CCid nDZTfYLZHT0LrK53gbBHkqP== MICROSCOPIC DESCRIPTION (test code = x6nbdNIiTWThrIQ8KkUtDBVmy4gri9 BsdHBncGF 3371) nKVbvwPAodiVpys04qKB2xV76BI3rAFUcFxP9DB KvvtV4Ink9EGBuDBGenFLsB777g7eee4arfeDsr RC5jSroZMIwRTAiLHggFLOtCzHiMNREOd2LKRAW XHBhcn0= SPECIAL STUDIES (test code = 3376) p6cckLBjAASukNI0HbHwYPFfs4dbd3Na dHBncGF hVPhqySAoqrFfhe17wYY6nB00AZ3lZXFfWdO7UF IxvrU9Dba7IXHrEKJraWRjK537OPJoWNRwzKdmn cb1pX65PMOkxG2jhGSkLWo0HGEcduCxzJvjcJ6w VoZcQfNkZdEGwCIwqP55COPdfhC0GHKlz47nt8P hvXsqeeNhXCDsJXvsC9z4GKUfHUBpAPH0t0Xrf5 OpaU9rxD6wwKlhvP4vdZWxyCY1sxjax6Jaf8YoS 6odzKNnjCXhfzDpWHZpdhBSEZ0RTvKDTS0qU0WZ BLNVJtldIuVwXQsxGFPDFQjDXWINQSG5BFXKIRM cJHEUZQbaXKKoY05hmSHraOKWfPddSKYzBHbybG waGPP3LNQMgf0ps1PeODJkll67eeKcb5LceLm3S TKcg531rx4qtcV6WKNrFZZ9CSn5EWUdBEHfvV4c CoD4sIVdHOIbAKB2ECU9GRCdh9E4IG2sXZYbYXG jJFDupeQlc5tao5jbZRSuBQE5riAfsF0wG5SsVV Zvt4HvxApnMZCbpMozltUlVLHelRTpIFJwiA04T YQklGIeqRIrIBOvUOS2TBmeuJ8cKkCVocFlit3r sPEps1WlfRp7WVRcqbXjuaKdGXYsldSvZ09fhVJ caDEqz2mcazUzmuHirHXjuKCnCFCiKVG7LYb5NE LtIWrjJZKzTMqyYCRqZF8nwE4oeLdjbK9vrKYsq ZN4zkalkRWjnN0hQ5AeJNTqw0Aicriwz8BpQQVu ilImoj0aJVRvkMDRXZmpz9OgL7WgWGg0e3MorNs xRDjrWIb9GrMkYSXdzTLwxWXPWA57UIOtAKWzfO mthU1kkFCOHUVqdoQ0w5E0SCrcCOTvETd9WXncs pFrKJSqdU9dJXGuSD8eTNb9lpVyGJXdq0ZiVX5t SDOclBRwPOO2UJRsw9PfS0Gln3XyODNwHCDojd1 pgtKoWeJYpLUdUNExzv19SYLaDC4pZ6tqJUHnLW BggvJyeJOuj9NqRHSgvZF1uUXqBP5LHkBOk97lI DHhYRSFtaBzWVEstLgfgJS9roM5uA2vHgBDaZDh MoEBRCkghzXmLZKqlg6nppErGVXiICMnu2AqgWV ywJSsozJfZ5Zzx3SdHZAvzf72VUiplLRger69YG 1qQ8Puh7WjhS6kFOpdWCYxp9QogLMfkUMrBKKal 0RdP3spoghzKYjzxYEzpD7zAZXpTAh7AWBxz1Gv TAYrl3OfQrPxjjSgAANyFAJvSUGopS78GES6nDk sbGfefvFzBU7vEEPripUmWRMmRQJsxC0wVLtrwc GgHUBsdwW0s6I0PJeeIPYpcsEkKuzoOJV2zkQvy hN3rXGhS2njcpylJApwITApp1AyeR1bjNYZfUEf x7NkeORlhVEBgGSaVB9juxXlVH5dGMG3WAbnJIU ANYWzJWkrCLIrXNI6ZQdeIgsqYXW7sqCeEXOql2 OpXHsyQ9cwK19kbQlfvQc5aVIurIszjCMdaZDfL RQarbR1b7K2OHPxw6JjoglxCGOjha8= Gross assessment was performed at (test [facility] enter, code = 2777) Department of Pathology, [address] [place] [address], Technical component was performed at [facility] er, (test code = 2778) Department of Pathology, [address] [place] [address] 21477, Professional component was performed at [facility] enter, (test code = 2779) Department of Pathology, [address] [place] [address], [facility] [id number] 10:56:00 Test Item Value Reference Range Interpretation Comments Case Report (test code Surgical Pathology = 104) Report Case: [id number] Authorizing Provider: Vandana Tejada MD Collected: 08/31/2020 06:37 PM Ordering Location: [address] Received: 09/01/2020 08:13 AM Service Pathologist: Thien Radford MD Specimen: Groin, Left, left iliopsoas mass biopsy ADDENDUM (test code = [id number] 3381) Tjb5zhp9JfaARrwDLsMRzr rYYlxwEsar08rBN7hJ50WE 7wBZWhViG1RPQwaiJ8Hxl8 VPCfTKAsaLImN208h5juv1 gsarEilYL9sZxsGVVhZQAm DBmpNXNrClWyVZ5ssW5wfB hqhJ4elJKktDGjeFYzxCAm uAOcTDWjzcHbaa7uFZAkew DuxR6rycKSLNWhBW9bhnQ0 bzT2NCV3fVEnbpWcpCbhp2 RaUiZoOCghxvS4wcQtEFSo d3BaaHr2RYWok7FrT9UwCU 4gVGhleSBhcmUgbmVnYXRp kpWhVa7oZJqlfvV9lO5hWX RgUPMdSLGrr72mkhvyTN5O HBUzbD3ycDpyoJKbT3qzEQ FjdGluIChTTUEpLCBNVUM0 CRTyhxVoR9ICHOTvKEOhw7 ccLfCrYUDoejWrgY6zBCbk RaweS1nvNaaeyOTryaBkpM FibGUsIHJhbmdpbmcgZnJv yFVqKSI9mgO1UTGtWBdxBY CliLGxUPQzFISwZW8mxOMo dGljIGNlbGxzIHByZXNlbn WoCMRrp70fbHOhvMVawQt3 i0mmTMXiCZJ2qnYvGIDjMT IkKWIuXLBwpUSqRQ3iAMPe ZWQgbnVjbGVpLiBUaGVyZS XaslOwvd1nhaJlFZpxhBYw slDlxKLfvUMreDv3r5QgFe QzjTs9coCgHIGjJGLuttQk QYgga6Q3ITXwrOggddOzyT AgIV5xYUPeKAQnGnSrJKYk s1Wcgz7yyQCcMCNycfHAal LzXNfuBUD3eOWvfyU3aLAr GL1tEUStSTHnWQDzy16ljK SncP3yOFXdcw8tgjN6HXSi t6nawnImGDqiMNWoit5jXF VjwH6aBhZluYLpcRnlYY33 LlxwYXJccGFyIFRoaXMgY2 BhFLK0eRobLKXiGHOuWgRp diBhHBEvYJ3GBUZyCFArq7 4pMYXwonNio80vlQx1HNGe h12zGFCbZMOcDQNgQCGjQO BgxY1ivCA0gJtnSZBusZkl ny3olKKsEPFqhsUEaaLfKG UxiVYxfS8smnEijCZqMIDj BAp8QKZvRzDJbX7rQKIoKU 4yF1czWXxdklypEAK6 DIAGNOSIS (test code = g1lpjPTcWUUup1nbAUIqxU 3220) FuZzEwMzNcZnRuYmpcdWMx IHtccnRmMVxlcGljOTIwMl pfugFjIJJioODyB7Fprdnz CZblYB0yPE1flUttiCPvpV JtCVXzTbHbx5fkt913zYOt f0moVEKWfdkyoWc1qMenH0 2vd9X1XmiqS05qaVUqRScg bGFpblxmczIwIFBBUlQgQS ERHSWEICsICC1EC43NAuHH XWIEGGVOBU5IA4n5TFVkuo BTUElORExFIENFTEwgTkVP SZqPC81tASThzgMXXN7HAD BJTlRFUlBSRVRBVElPTiBQ SV0DUT7XKPfTCZCHN5QBVK 1QQUnKEH0LWymcEBFoLRYX SX4EKQ1tAfJHQ9RTWBMDGZ UDSPqYTg3mEMEgqv10FYI6 NjWxm7U1ZZV2XWGvJGAmn2 lcZGVmbGFuZzEwMzNcZnRu UckwwSLaJWKkTdVax7xkl3 76pYDtx9rvITTrVbB1bVFl LAPvvDFhS154LFRfIHvzx1 eti5XqUAUteFRid0W6WIMO pmyjdAt8kZrnA04gx2Y3Bz nnH1afCVUdQUDeS5OwHM6a RHEyCoy2VPD1TON6ESQxCK ZdS3WhFR9aIXCjzXOlWGs5 e6ycoFvbXIHnTSM4s7mtBC gibfCaDZ0ajc2yaVj7k8ka czEgRGVmYXVsdCBQYXJhZ3 RnhZnuVh8ljZu0lRdbGqmt JUZ6Idp6OY5mvn58mql6bP qjYDFzmotaHiG3OYniJTTp pvvxLQk0EGrfGGUcbVM1FP VkbIMtZ9KwGKQmMK0jcze9 BEB9SWwmSAPiKnN3UKCtyS DdAQBxfVtkJEypv184FKQ8 QtDpDP2zE9Brn7Z2dT9mfW ZdPOIerNMyGuMwYYHxwm9x kRBzBWqri7PmZCI4jiJ2sR KfxGXuNXMwQxP2SVrkRU1o gq71UYAsRVL4dd5brTCjlV rojvAycRAuBDbgT0SyRFOy k179CHIrV1EiGWCrl0E6fx NdMoQzYZBksVH5heS4AXIk DL0levosj0alEOpfCUbwNN FsczT7ccK8FMPrdPFlM5Cu gZ9tWPUnMN6absblw7feTF U8WXcoLWJfOXO0XgVfAIDs t7Qwjpp4OdMjy7JflWOpDR qkZ63sg186YUEaptPzH5pu bGFpblxwbGFpblxmMFxmcz R1QGAmZMiznhlaADXhWOis N1niHpFyAHBheTmdGNjmx5 NoXGYxXGZzMjJcdGFiXHRh Oqa7AXRnzEUzQDEjTxWbO3 zsscudDvPTTILfy1etQ5nv aHFBzBLeE3RgCJgylzPwSD hdZVqaZRLhSAR3HC03TJkk NAIozl65 CPT Code(s) (test code d5tzyZNkLLVglNS2LqRvBU = 3357) Wox0mrk5DwuIHkvDXxYIrx fIYmjhUueq76xMO0tD87FR 0kQEUxLrV4UWImidQ3Gpu4 MBQfIVNbpVLeX254h9juc5 uouiLqxAR7fIpuQGLkREXp YWluXGZzMjAgODgzMDUsID b1DeLsRTE4BKB9ENb5WFAe cn0= CLINICAL HISTORY (test w5gumLQjMTLugCR7PdEzYC code = 3356) Wce4psv5XhdMOznMYaZEhc iXGmlfExdc69aZE0rS15HR 3gDTOsOgM3VEZzcaL3Oxu0 HTCpHQBxmLRfP983w8nmo9 mbubBpuOB7hAecOBNbEEBh YWluXGZzMjAgTGVmdCBncm 3ryoEbdLY9T6twfZ5uh64i xnZvAGUkFIE8IcSdnSV9Pe EgeCAyIGNtIFxwYXJ9 SPECIMEN SOURCE (test u4jkeZOhFVOjtFI4NsFdCY code = 3377) Goa6rdw3BrlQGwwUPcABgx sMWrfaOyio36lEQ2rK46AF 3yRSApQrY3ILHevlQ5Tgb4 VEBaVFTpoMKhV298n4zst9 fajwJjvME4vSnsMAGtJBQd YWluXGZzMjAgTGVmdCBncm 5dxx4bpQjfkSFhCMDzdCLx fQ== GROSS DESCRIPTION (test s6gmqDAtTYNpoWGyHiJjPC code = 3366) HvAWNfm5neOZFzbDCsFtTo MzNcZnRuYmpcdWMxXGRlZm Uae7jnt008ySXyo0icERBU fsljoDt1i0edGZSeXuV7mA LeJExgD1offrMkmKQrBRAb PRb6qT55WMPkfL0jnIAaBL gajuFlBiK5GCmiTLUkCrL6 CVWrcDXtRPSaS0reETPeHG heTRLhWVgbtRSzLWT8jKzr e4C8xEQeqZRmuHpsSpUdPg KtCRTWk2DmZQb7hQapZ2Qh EWCoCpJ5rPVmNSUgUKojGX KkKCLgdcY9qC39SGckdyC6 gOEqz1Geo67zb429tF5jhK UsFTD5WIGoOOHxoQFlGVCo LNZ3VMBdoIXqT0s3JsFsgO DcY1J7NzEweLSxW3F9VgAp dWNpS4Y8KdVkiCBeWZDcvK RnEh5zyYZuiWVbgi9scj06 LMP7s1AspDjjUCQ9KAM6Qh IhRp5qmABpEYWfIJAexROv TDNgFR6joRMnKHTnxS5fve xjXHBnYnJkcmhlYWRccGdi viBkWt1sgXvlEXE8OFweA6 efmU7iYrW8DQxyT3vwtT0f RVz3LMendKV2HAZgdY6xPJ 9uemvgf2mzYiWqOV1lkntr z4syLlDeCO6lzms1k0dnVp RlXL7zwwvvn3tuBqDxMCqb BOZssceeDNCuo3HozbsfGT Izi7VqM0DpbJkyB05rjIeb F81cTMTpkLdykP5alLgjqC 5cZjBcZnMyNFxwYXJkXHBs YWluXGYxXGZzMjBcbGFuZz EwMzNcaGljaFxmMVxkYmNo ETWuNQmgZ1xkRkLyAeJxIA BBLiBSZWNlaXZlZCBpbiBm l2AsWXvfwoNpRVZicNEvHF dpdGggdGhlIHBhdGllbnRc D8S3lfNhXJ0fBPWuAKDrG8 JyLIZvH57mGTAltC4bDIVu RU8lEPQuzx6tjtbdtXEueV LiYK1dCOFvcvVbv7BwFM8t LI42qIOlsYxhZNikUVocc4 wpqJAqe92ibXN8eLKloBBb D62vFLEjadSeR9ayKoZxSm PmNW0iVPGbZRxpUCbxvhr3 uKPvfRZytUW5NZZodA8zoQ 85yhPxosOQMW0njTocVUof jL9uXFFhUFuwULYqU7FfzH 8uPV0ZQntdJIJfNVQEO6If W68dkKFxoF== MICROSCOPIC DESCRIPTION z3vtaCQbJJUytRZ9FjBaMV (test code = 3371) Oxv6aij6SdyBQfxBGfIKui vQGwzyDswv42wLZ7eP19RC 6iKHGcDzM0XMEzysF2Cvc9 QOOgHSAciCXzV350i1uun4 scogNepIY5mMmcEBOvAOFf WHhyDMAdIyNlOIUWEr5BXB VEXHBhcn0= SPECIAL STUDIES (test v9xgqKRpOOHwzQE0DnZdDG code = 3376) Ivv7cgn1KpeJSuiBYzGUyd bHTfouKmfj62vRG4xO38RL 9vREFkLcE2BSBtuxN6Uxi8 CIWrMQNnsRKvC741FTDdKI PfjTnbfxi9sT30YBIjsD0i bUSrNFx8CSGedvVmlFtocE 0aIaOhKbRdKsHGtGUaaT86 GWYatvA1EHVqk93mr8YeyK evwxDwTWTeMRuaD2r3NWTe ASPrRAC1t0Szm0AjfP6ekO 8kbByspY7xqHMczHG6rqat n7Foy2OqD5xiyHYglNRcew KdQPZfhyGTKX4AKxXKDS1e G7DIKYIRDxmxDqUnMUygBU BQZBqCRKBHGYH4HZSADVBu BVHWRFtpJNOzC40mmTIgaT BTbGlkZXMgRXhhbWluZWQ6 EXUIga4kt5MdRPMbtx24mx Bdf8BgtLp3RAVys953il4q adE3TIBwUXR4HUd2SZPvYW AfsH5nHfA9mRWoYOJnKFB9 OUT1FNRmg5K5CU8qNELiCA VnBWCplrQno5pkf1ftIIOc OVE3zfFzvO6oQ3AaNJFfk2 YgdGhlIHBhdGllbnRzIHNh kEWsOHUdrK25HOTojJQusT IgOTSuZND3KNlfzE5fUgMH keSqjn6xyABip1AosRm0YY MunzQoaqPlOEUooiQeF10k pCVlaFEaq9cyqkTifiVlzE NxrQRxTEXjFRZ4QKr6HFJq JZowYWDhPKxjVYAsUK7ljY 7yjEvbrB6bxKEepLC3coer tINhtP4tB5EqWZYtj5Sqcd jog5OuXKPyhhQsyn3bOVHs pNKTZHlpx3KpD8LdFOy1j4 FfcAjdRGonVEk3BdRmDVRf hCZowDPKBO17HHOpWEPusK ucfM8hkWEKKTOjmwK4o9M1 HJdrSUFhEJw6XIvmptAmIR XakV4bOSKtFI9fQGu1reBn UDOpe8WdPY1kOPSrtHRgTM D0JRBvz1JsH6Cvi4VyZECy OYNgqi1myvCdPeNQdIYhGC Njkp39FFWfPS4jU4znXGUp NKJbcpTrnNKxq1QdYZZbmX Y5kUNpZC7IYkHKu17cYRDn OYJSliHhOJDzoValnRK2rb Y7fC6qFkEBmBCxPuUHMLml abJeDFHgax5tovUhYHIbFL Qxw6WaeUNsqJPvdfApS9Mg i9InUJJivm53WOmfhPKlfm 10TR9dU6Stb8IltJ6lLXsy CVStc2RydRWidFEaWAEoh8 CaF9clhllhMPlgqYNmrB4w DWSwMVy4KAEdp7VoPSJeo4 QgYmUgcmVnYXJkZWQgYXMg dJ97SOM7bUugsLeskwXsRO 5uECCrvjNxOXRsYDEmqZ9b DHnecqFtHTSsaqU8i6E3LX mcGPPqojAzDrbgHHD3mdTo ihE0cNYjR7etacggONzuKU Tmb0WfaO3yvKEZcMJce8Ed gDMfmPDOmAUiKE0xiaQbES 9eBTL0OOpwXWWRMVZcCAxe CGPtUIN6QDofAieoULI4xv GwBREop2UxMRrmK6ynR48i hZnviRt6bXEpuRwowNIxeP UeTXOtsdI7f5W2MPZux7Od bmcuXHBhcn0= Gross assessment was [facility] performed at ([facility], = 5007) Department of Pathology, [address] [place] [address], Technical component was [facility] performed at ([facility], = 2778) Department of Pathology, [address] [place] [address], Professional component [facility] was performed at ([facility], code = 2779) Department of Pathology, [address] [place] [address], [facility] [id number] 10:56:00 Test Item Value Reference Range Interpretation Comments Case Report (test code Surgical Pathology = 104) Report Case: [id number] Authorizing Provider: Vandana Tejada MD Collected: 08/31/2020 06:37 PM Ordering Location: [address] Received: 09/01/2020 08:13 AM Service Pathologist: Thien Radford MD Specimen: Groin, Left, left iliopsoas mass biopsy ADDENDUM (test code = a4xpfOOgUBXoyIH0GpWcSF 3381) Ivd4zna2LywNKfnPLeLEze wVKkekKrlb94wFB2pL92EC 1jLTWuDoB9GPEjasF7Yfq0 IJNhJHMyjRVpR328y6lij9 jaopSluWD5wUypFPScROOf YDddEVRiVeUkKQ0lnQ5ivE vsgX0urQVxoRZlfCGzxXZn nOGgGTCjxkDwkp0dBMWmkn AniO2rlrOGHJSvTZ8cwrY2 dpH8LKO3zNSngdMgoJsne3 GcQsHiXJmbpuM6tpUsUYZr c1ScfZs4LKKst6BtT8XbDW 4gVGhleSBhcmUgbmVnYXRp vbMbTu8oYVyzjiI7sC8tJE JfOSFpMTJoq02xejltWI2O XHCcjY2noSlkbHDnH7fjHV FjdGluIChTTUEpLCBNVUM0 QHCxhaRcJ0AJTFSoMVRjy3 huOsAlKCPhuiDobH8rWPdv KstgS2ooWylwqOZcyjRkeU FibGUsIHJhbmdpbmcgZnJv gGMdNNC1gjC6RQBzHYxqGI NyzLVuJUCxKBUbQA8elMCs dGljIGNlbGxzIHByZXNlbn EmIYAdj45ubFWvxDXzmDw7 u0xwCZXqOWG8hoVmFNPpPV XqGLSwESEikNEbZF4wRWPy ZWQgbnVjbGVpLiBUaGVyZS ZkkxIbwd1cumQqZUouvCEq yuLezKTvzEMhhKg5o2LcSl LzbYx1mjDoRCYqBAYnlxMf VKuei4W3FIBunJwitgSfbF WjXV1gGRHnDNQmHkXcFUWj z1Igns4jvSBdNNIjilEZys KvRFpbUIL8nAGyxbV3fDHh NS7bUPCzOFMqNYQik86ozL VigI6jDTOvuw0krqR1SCJn b7zuuuWlERlfSVTjkm0zSV NxmM5jYyTuhADjzAorQV30 LlxwYXJccGFyIFRoaXMgY2 QfFYU7lQreYSKfOBJbHvQo etWkGPYdIJ0JKKLpBIIfx0 6uTBBjyyLpo77giDk7OTDx q95pOVLhXLTdFUQaYCJlJB OcsZ3ooFK7qQczYEFccWtl gq1shQWlSEPdflMIjrJsHW LnkTChcB5calQloMCaOZOz CIt8GPYvPgWBtT4fVKTuOY 6cC1mmTNdnbzmeLZY7 DIAGNOSIS (test code = a5xdzNKyBQUyj7ulPQGuqZ 3220) FuZzEwMzNcZnRuYmpcdWMx IHtccnRmMVxlcGljOTIwMl ubsjVpEFWylVHvJ7Jweurf FKenYU3xBD8zrGbdpVDptX ZlMHKlQvDrm7bqe682rDAg w7dwKVXWorwddCt2oIjeM7 7er3G3WpyeI96rnLCmAKlo bGFpblxmczIwIFBBUlQgQS PIYSGFFQjXPR6IF75AYuEY XTMOGDOQJH6PR2f2MOBopk BTUElORExFIENFTEwgTkVP WYwCN40zNXUmifYKAV0QNN BJTlRFUlBSRVRBVElPTiBQ RC6XIA8GYRoDXFGXE8TPVR 6STHlGWB9WSnbwBGRsTGBJ YJ7UBT9gVcWZF0CROPKUQT ANVPfDMk5bVNRwvq64WGA4 OqKai1E3OKX0NFVcOCSpr1 lcZGVmbGFuZzEwMzNcZnRu QvoffHBaNYJxStVde4nbk6 97zMVvi1ssPQVxLyA0fSNo BBVteDQwW097VVWlLYhbm9 msv1LhCBAnbHXyj6X5QQJZ sjirbKx9uYgvP70yw0J4Lk vqF1yeZFWeIIDsA2VxEV8p KGGwSzh4VFB9ZMH5VMDbVQ QkM8XnRU0gQUMgeQBnTSi4 h2jmeOhiYUFnWAD1f7ovSE vzxfIuFS5tgr4dyCs2l8gh czEgRGVmYXVsdCBQYXJhZ3 PvfMraSy0bbPn2wWuvLuyh FQY2Hvc6JQ5wsc91txb7kQ voHJWftcfnEeP8TXrxAHGz kcpcUYo0KAufYOKsfKK9BU KosKPhO3AeHTFqHE0alic8 NWR6EOmwHMSlWiV8MCGhxD HkUSNjeAfpAJxjx681MPT7 YmQkDP7tN0Bsu7H6oR5qzL BeLAWfxYBuIiHbDCDnbd2b wQVtOQkzf3UiZAF9xlW8lJ TakLRiPYNlGfG1XAonTT8w my76DAPtRKZ0an8yzVIjzP dqwnMshEIyTTdzE5NpAUTy r609ZGOcY0ZxUNBjr9D9py ZqFtObGUHxpZP0nwR2XZCn PU5optqek8mtWQtaUHbrIK FffbI1coU5BKMydPDoN7Xo aF5hKDDsUP7nbqawx5heVY R2HDueEWBgBSB2WmMtJWLt u1Etdcw8ZnMly6BhgROtCK dfA46eo656KTHwfbGhL7cy bGFpblxwbGFpblxmMFxmcz H6XUOdYMinjayiJSNrZRsk M2wwUfStVDIrlYaePWhup3 NoXGYxXGZzMjJcdGFiXHRh Bhb1PEKdeVArPUAaAmMdX1 ewheauEeVOCXVcf7mzN4wi bVSFxFEuK1CnMJlevwTjBB ryUErbCZNbNAF1CX70IUlr UBJghk54 CPT Code(s) (test code s4agsJJbGGRgaGR2DrCdFA = 3357) Uqg4gdy2GjbRPvzTTwNEho sVInwbYktc48nDA0oV20MS 6pGPMsFwX7FHGufkD1Eop6 YSDaXMMqtUViO261a9pkc5 csisIlqVJ1hRvoNYJkKWLk YWluXGZzMjAgODgzMDUsID x3YkGvAKC9LBU0LSu7QNFe cn0= CLINICAL HISTORY (test e3udhXPtHNKroIB6TrKcHA code = 3356) Btr3cuz8PliBErnNRqRSbz yLApnkAnfd07zRY3bF05ML 2xCSIrOpD2ACNhggP9Osn7 VGAuHSRaxMIwY289n1yww6 olfpSaqSZ6xAaqXMTfDWLc YWluXGZzMjAgTGVmdCBncm 2icsWimJU9Q2ldtS5uw21v pxKqMHOoSMA8GrQfjOH4Ji EgeCAyIGNtIFxwYXJ9 SPECIMEN SOURCE (test h6hvtCLcNZIcjJJ8XmXkDN code = 3377) Uwj2dzb6BxxKYbzMBzGDbc yJMpkdZfyj03iVV1fR44ZK 6iGASuSpF7TUEzbiB6Epn9 PCCwBPDicWLbV200p0geg5 mtxpGbrCL1aFwfEJHfNEMt YWluXGZzMjAgTGVmdCBncm 4jbu0poSzpnDJrJDUkkPOw fQ== GROSS DESCRIPTION (test u1mubSTxVMLlsBFsEaVlLN code = 3366) AbXTKcz0yzJAHxuPRvNgVk MzNcZnRuYmpcdWMxXGRlZm Xcy2vkd864pDVwp6woLABM zooeuNq4k8nlREVpQwP7dH MgXSfcZ9yghyRyoIBaJYYj DLy8qM64EFKzbS0jpKYcXC hsmtYuFpN7FMsdPFZiPtJ0 CNSsdYFtAAEdC7xvJXJzEI ihXWSlFGxxzKFuQRF4tIlh t1H1fNJeuISjnKvnIqAlTv WpRWDGe6LzDZr3fQzeK4Yr RLEtAsP7sGFjRQBfTQrsIL UvVEJapgW8xC08WKyujsQ0 kTErk9Tcd03ob473nG3peX ClHYQ6KYUtWSQgcWBmXNEd QQO3FZXblPTcP1t0EuTieS JgM2C3DkJfyPBvD4T0FwXu wFGlA7Q8ZiUbcEGaBXQbmQ CcQh8udJWihWIrpn0hpn74 XCU0s2WwgBotWOM8IKR2Px ZoSj7hfEQiAAIzWZBivYUy VXPvIQ7trQMjTYMtlH1gko xjXHBnYnJkcmhlYWRccGdi laCxOi9izQnzQKR3NIutQ0 kthL1fNtF0EUyiW1wplJ1n KVq2HUlpzOC0CJVwgX0hJR 8dilxaq4deGbHyBB3qnpkq r2gwEgGyCJ6xrct0h1zdYk RoAW1vqmorf6pxVlEzQHwz ENSmpqixNBNiu6AvxhudMA Hne5QiN5PwgXnyR27ptTao S75eCAOljHqetS2ouDsidF 5cZjBcZnMyNFxwYXJkXHBs YWluXGYxXGZzMjBcbGFuZz EwMzNcaGljaFxmMVxkYmNo MUByCTgoH6yuHgPkPbUtLA BBLiBSZWNlaXZlZCBpbiBm h1WzUYyguzSnCGSbwFLaOP dpdGggdGhlIHBhdGllbnRc O5L6imXrHH1pKYTnNOIoF2 WbXQEeI25uGZGnqQ7dWIHu SW9sPVSyqe3azqlxjRPfpU YaQA4mEWVnooPnf8UsPP7c SU28qAOtjMvvPOuhFOwbn3 hidMXoz97llJJ8eLCxpRNr D79xLRNthgPxI8waOeKlAc XqWK2kJWWiNKpqZJbsvdv5 yDYpoPBifLE2ZCRzcX7sbJ 82fxTqrgTOFE1siVicEAgj pY2tGBRdDOzdCGVgJ1HuwS 7kUH2ADkxbTMXlGRRLJ2Rd J54vhHCooU== MICROSCOPIC DESCRIPTION q4mfrFVqCJNflXU6OvKuNQ (test code = 3371) Dqi2gar5GwtGTshCChIXbe eNKpmoOawo06fDV1xG72SL 1gCCDhRhX0LAAfbvM0Jwv9 INNzKONvyJCxB284j7bye7 zeavVuoQD7vWrwQXQqHIJp SHibSGZfNyDfNAYOId8RYI VEXHBhcn0= SPECIAL STUDIES (test y4ftaJBiJLDvgOG4EkTuZT code = 3376) Zdj0qjw4KmrBPyoPIrVEmk yBPmbsEpvx17lHR5nP85MW 9wEMMcFvW8LTVtdvC5Pfv1 QFNjZVBqlHUgG297JOEuHE BmnMgyarn8tZ83LZCmtO1r gQNbGOk9MQTqesVcbEqazN 8qByCaBtWjZjNYmAUglP74 WDZbavI2OWXqz55ox1OgbY drrzMoCTLkRXkvF3i7GGXr JCUhEZK6m4Qob8KtdZ0tqH 4vzPrwyA5axNDkxLU2uluz p9Pjq8IrR9epfDWagOUgcz NnRQThzoIAVR2UFlQOGG9l H5GXHHFZFtsrLlGnWFhaIP PXKVpQWNSANWN1HXRVQJKi UOIBUVdrKEHlK22ihYPboB BTbGlkZXMgRXhhbWluZWQ6 JKFEbh2jj7MzBPZakz87xg Rzu4CjcFx0GDYas598lo6v auK7PNLeJLM6JRm6EAYdWN EwpJ5dGjF5dUVrYOShXFR3 BVF7FCNwn7M6VI1vFHJeQO RjHYCbchPnr9nqs4puUSGz TOA5dqOsaY9yV1KaAIGvn2 YgdGhlIHBhdGllbnRzIHNh fSClDEEdfR03TMNgkWLytQ NkJGIsHQX1AWvryE7jLbFS teQsfe9caEWoq1NllPp7KU XlpdNdhqNiGUPofwUhY38l sQGxnARca5glkiGztrCisL MzzIGcLMGjIFB4QZs9EILq MDguYKDtVOoyHZRrIJ7zvQ 2vcYoxsX6iiIHapDA4zyte mWAusO0wP0OuPVFqz7Aerb lyq9IcFEUrdlEsmz6sLLKf bOFRGCjjf2JoY7AcJIs4i8 SasQsrIXmgADi0ZrZsAHSf gYPgjSOCNX48EWJrJEBtmL bbhO9lbPNDUYYjxhJ2s8U5 BEwcEWJbXUv9QMvezfQxLE ProQ6lIDNqYC2jCOj8iyZy XDTdy6SlRV0dGNKbiWUvTH Y0YYDtf5JaF5Ypg2QqYWTv COMdhw3vylSiJuYWhMOcTY Hoav02RHNhYA9uZ6fwAUWn LSRhrsIvxKXbg5IvIAPmzA K1lQBpVR6TAlOJd89yZUPh BSEYtqSxWPMxcHgtlVA6so E6hX3vPbDZnIRyGoQENGxe nxDjYNNcot3xvsHrQUSeTP Axl3RdyJUnuCWlqbBoJ3Lf j8QxDNKjsa71BDuxtEUrsb 64SO5tI1Jcb5WkrR0pAIyk KXTme4RpfXFwfRXmEZGxr1 JcV7xvtlujTCabiNPxdD9b MMBdWMo7XXGmm9XjTQIzj4 QgYmUgcmVnYXJkZWQgYXMg mK49VSM1iKwtyTigxrCiBU 8iKATimdEvWJZhCDZkdJ2i YFnehlKbBQEapvH7c7B4LC afFPOufiUkUfzeGKP0gkHq spB6fVOoE4ennlfyHWfiMD Ebh6UdlQ2hfJPUkEVss7Jq nPJmhTCPvUIoQH9idlFlUM 2aTJU3JMwzKORNEKVxKMgu SGZwBFN3YQhhFsolAPZ5ib BsRSBte6OgECcmV0dnJ94q pWzvjBr1sHRgiLfhuXUduI LdPQLgxlT3i7F7RFStv9Tj bmcuXHBhcn0= Gross assessment was [facility] performed at ([facility], = 2777) Department of Pathology, [address] [place] [address], Technical component was [facility] performed at ([facility], = 2778) Department of Pathology, [address] [place] [address], Professional component [facility] was performed at ([facility], code = 2779) Department of Pathology, [address] [place] [address], [facility]CLAT[facility] [id number] 10:56:00Surgical Pathology Report Case: [id number] Authorizing Provider: Vandana Tejada MD Collected: 08/31/2020 06:37 PM Ordering Location: [address] Received: 09/01/2020 08:13 AM Service Pathologist: [...] REPORT TO FOLLOW. 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 [...] evaluated Immunohistochemistry technical testing was performed at [facility], Pathology Laboratory where it was [...] to perform high complexity clinical la boratory testing.[facility], Department of Pathology, [address] [place] [address], [facility], [address] [place] [address], [facility], [address] [place] [address], [place], CHEST, WITH CONTRAST 2020-09-05 14:16:00Unlisted Reason for Exam - Click Yes and Enter Reason Below- >YesUnlisted Reason for Exam->spindle cell neoplasm, need CT chest to complete stagingHOMAR SAN [facility] : 1960 Sex: FFINAL REPORT CT of [...] [place] Verified Date/Time: 09/05/2020 14:16:01 Reading Location: [facility] C013Y CT Body Reading Room Electronically signed by: BRIE SMITH M.D. on09/05/2020 02:16 PMCT chest with IV [id number] 14:16:00Interface, External Ris In - 09/05/2020 2:18 [...] [place] Verified Date/Time: 09/05/2020 14:16:01 Reading Location: [facility] C013Y CT [facility] 2020-09-05 14:16:00Interface, [...] Smith Verified Date/Time: 09/05/2020 14:16:01 Reading Location: [facility] C013Y CT [facility] 2020-09-05 14:16:00Interface, [...] [place] Verified Date/Time: 09/05/2020 14:16:01 Reading Location: [facility] B1 C013Y CT Body [facility] W/Doppler(CW/PW/Color) 2020-09-05 09:47:35 Test Item Value Reference Range Interpretation Comments Ejection Fraction Est EF is 55-60% (test code = 2574) PXN (test code = Interface, External Ris In PXN) - 09/05/2020 9:47 AM CDTTransthoracic Echocardiography Report (TTE) Demographics Patient Name DANIEL DEL VALLE Date of Study 09/05/2020 NEELAM Gender Female Visit Number [id number] Race Unknown Room Number 2146 Number Date of 1960 Referring Physician Vandana Tejada MD Age 60 year(s) [facility] MARTA Be Interpreting Eduardo Roberts MD Fellow [...] Diastolic: 0.64 cm LVEDV Bernard's:120.15 ml LVESV Beranrd's:72.68 ml LVEF Bernard's: 60 % LVEDVI: 50 [...] Velocity: 2.81 m/s TR Gradient: 31.62 mmHg [facility] W/Doppler(CW/PW/Color)2020-09-05 09:47:35 Test Item Value Reference Range Interpretation Comments Ejection Fraction Est EF is 55-60% (test code = 2574) PXN (test code = Interface, External Ris In PXN) - 09/05/2020 9:47 AM CDTTransthoracic Echocardiography Report (TTE) Demographics Patient Name DANIEL DEL VALLE Date of Study 09/05/2020 DENYL Gender Female Visit Number [id number] Race Unknown Room Number 2146 Number Date of 1960 Referring Physician Vandana Tejada MD Age 60 year(s) [facility] MARTA Be Interpreting Eduardo Roberts MD Fellow [...] Velocity: 2.81 m/s TR Gradient: 31.62 mmHg [facility] W/Doppler(CW/PW/Color)2020-09-05 09:47:35 Test Item Value Reference Range Interpretation Comments Ejection Fraction Est EF is 55-60% (test code = 2574) PXN (test code = Interface, External Ris In PXN) - 09/05/2020 9:47 AM CDTTransthoracic Echocardiography Report (TTE) Demographics Patient Name DANIEL DEL VALLE Date of Study 09/05/2020 NEELAM Gender Female Visit Number [id number] Race Unknown Room Number 2146 Number Date of 1960 Referring Physician Vandana Tejada MD Age 60 year(s) [facility] MARTA Be Interpreting Eduardo Roberts MD Fellow [...] Velocity: 2.81 m/s TR Gradient: 31.62 mmHg [facility] [id number] 07:34:00 Test Item Value Reference Range Interpretation Comments Protein, Total (test 7.5 See_Comment [Autom ated code = 2885-2) message] The system which generated this result transmit yumiko reference range : 6.0 - 8.3 gm/dL . The reference range was not u sed to interpret th is result as normal/abnormal . Albumin (test code = 3.6 g/dL 3.5-5 95255-1) Alkaline Phosphatase 106 U/L 40-150 (test code = 6768-6) Total Bilirubin (test 0.2 mg/dL 0.2-1.2 code = 1974-2) Sodium (test code = 139 meq/L 701-535 6840-2) Potassium (test code 4.7 meq/L 3.5-5.1 = 2823-3) Chloride (test code = 104 meq/L 98-107 2075-0) CO2 (test code = 25 meq/L 22-29 8-9) BUN (test code = 10 mg/dL 7-21 3094-0) Creatinine (test code 0.70 mg/dL 0.57-1.25 = 2160-0) Glucose (test code = 159 mg/dL 70-105 H 2345-7) Calcium (test code = 8.8 mg/dL 8.4-10.2 50113-8) AST (test code = 9 U/L 5-34 1920-8) ALT (test code = 13 U/L -55 1742-6) EGFR (test code = 103 mL/min/1.[place] [address]-7) NOT ACCURATE CREATININE CLEARANCE IN PREDICTING GLOMERULAR FILTRATION RATE . ESTIMATED GFR I S NOT APPLICABLE FOR DIALYSIS PATIEN TS. JESSICA (test code = JESSICA) Non Licensed Nuclear Equipment Operator ID - [id number] M Lab Interpretation Abnormal (test code = 97351-2) [facility] [id number] 07:34:00 Test Item Value Reference Range Interpretation Comments Protein, Total (test 7.5 See_Comment [Autom ated code = 2885-2) message] The system which generated this result transmit yumiko reference range : 6.0 - 8.3 gm/dL . The reference range was not u sed to interpret th is result as normal/abnormal . Albumin (test code = 3.6 g/dL 3.5-5 75929-8) Alkaline Phosphatase 106 U/L 40-150 (test code = 6768-6) Total Bilirubin (test 0.2 mg/dL 0.2-1.2 code = 1975-2) Sodium (test code = 139 meq/L 018-327 7866-2) Potassium (test code 4.7 meq/L 3.5-5.1 = 2823-3) Chloride (test code = 104 meq/L 98-107 2075-0) CO2 (test code = 25 meq/L 22-29 2028-9) BUN (test code = 10 mg/dL 7-21 3094-0) Creatinine (test code 0.70 mg/dL 0.57-1.25 = 2160-0) Glucose (test code = 159 mg/dL 70-105 H 2345-7) Calcium (test code = 8.8 mg/dL 8.4-10.2 33175-9) AST (test code = 9 U/L 5-34 1920-8) ALT (test code = 13 U/L 6-55 1742-6) EGFR (test code = 103 mL/min/1.73 [place] [address]-4) NOT ACCURATE CREATININE CLEARANCE IN PREDICTING GLOMERULAR FILTRATION RATE . ESTIMATED GFR I S NOT APPLICABLE FOR DIALYSIS PATIEN TS. JESSICA (test code = JESSICA) Non Licensed Nuclear Equipment Operator ID - [id number] M Lab Interpretation Abnormal (test code = 63495-9) [facility] [id number] 07:34:00 Test Item Value Reference Range Interpretation Comments Protein, Total (test 7.5 See_Comment [Autom ated code = 2885-2) message] The system which generated this result transmit yumiko reference range : 6.0 - 8.3 gm/dL . The reference range was not u sed to interpret th is result as normal/abnormal . Albumin (test code = 3.6 g/dL 3.5-5 69332-4) Alkaline Phosphatase 106 U/L 40-150 (test code = 6768-6) Total Bilirubin (test 0.2 mg/dL 0.2-1.2 code = 1974-2) Sodium (test code = 139 meq/L 866-089 8244-2) Potassium (test code 4.7 meq/L 3.5-5.1 = 2823-3) Chloride (test code = 104 meq/L 98-107 2075-0) CO2 (test code = 25 meq/L 22-29 2028-9) BUN (test code = 10 mg/dL 7-21 3094-0) Creatinine (test code 0.70 mg/dL 0.57-1.25 = 2160-0) Glucose (test code = 159 mg/dL 70-105 H 2345-7) Calcium (test code = 8.8 mg/dL 8.4-10.2 94564-9) AST (test code = 9 U/L 5-34 1920-8) ALT (test code = 13 U/L 6-55 1742-6) EGFR (test code = 103 mL/min/1.73 [place] [address]-7) NOT ACCURATE CREATININE CLEARANCE IN PREDICTING GLOMERULAR FILTRATION RATE . ESTIMATED GFR I S NOT APPLICABLE FOR DIALYSIS PATIEN JESSICA (test code = JESSICA) Non Licensed Nuclear Equipment Operator ID - BALA M Lab Interpretation Abnormal (test code = 43980-3) [facility] [id number] 07:34:00 Test Item Value Reference Range Interpretation [...] S NOT APPLICABLE FOR DIALYSIS PATIEN TS. Non Licensed Nuclear Equipment Operator ID - BALA MSARS-CoV2/RT-PCR (Asymptomatic ONLY)2020-09-04 12:52:00 Test Item Value Reference Range Interpretation Comments SARS-COV2/RT-PCR Negative Not Detected, (test code = Negative, See 72935-1) external report for linked test SARS-COV-2 [facility] PERFORMING [facility] (test code = 23436-3) JESSICA (test code = Negative result for [...] of the Act. Fact Sheet for Healthcare Providers:https://www.StrataCloud/sites/default/f nito/product/documents/F act_Sheet_HC_Providers_L glt_UWBW-TpP-1.pdf Fact Sheet for Healthcare Patients:https://www.Net[employer]x/sites/default/fi les/product/documents/Fa ct_Sheet_Patients_Lyra_S ARS-CoV-2.pdf Performing Laboratory:[facility] [place] [address] [facility] (Asymptomatic ONLY)2020-09-04 12:52:00 Test Item Value Reference Range Interpretation Comments SARS-COV2/RT-PCR Negative Not Detected, (test code = Negative, See 15129-3) external report for linked test SARS-COV-2 [facility] PERFORMING [facility] (test code = 44182-6) JESSICA (test code = Negative result for [...] of the Act. Fact Sheet for Healthcare Providers:https://www.StrataCloud/sites/default/f nito/product/documents/F act_Sheet_HC_Providers_L kuq_IFQQ-JdZ-9.pdf Fact Sheet for Healthcare Patients:https://www.[employer]Pro[employer]x/sites/default/fi les/product/documents/Fa ct_Sheet_Patients_Lyra_S ARS-CoV-2.pdf Performing Laboratory:[facility], [place] [address] [place], [place] [address]ARS-CoV2/RT-PCR (Asymptomatic ONLY)2020-09-04 12:52:00 Test Item Value Reference Range Interpretation Comments SARS-COV2/RT-PCR Negative Not Detected, (test code = Negative, See 70265-0) external report for linked test SARS-COV-2 [facility] PERFORMING [facility] (test code = 88889-7) JESSICA (test code = Negative result for [...] of the Act. Fact Sheet for Healthcare Providers:https://www.An[employer]/sites/default/f nito/product/documents/F act_Sheet_HC_Providers_L ffi_JLVR-LbU-9.pdf Fact Sheet for Healthcare Patients:https://www.NetPro[employer]x/sites/default/fi les/product/documents/Fa ct_Sheet_Patients_Lyra_S ARS-CoV-2.pdf Performing Laboratory:[place] [address], [place] [address] [place], [place] [address]ARS-COV2/RT-PCR ([facility])2020-09-04 12:52:00 Test Item Value Reference Range Interpretation Comments SARS-COV2/RT-PCR (test Negative Not Detected, Negative, code = 6917152) See external report for linked test SARS-COV-[address] [facility] (test code = 6453077) Negative result for this test determines that [...] 564(g) of the Act.Fact Sheet for Healthcare Providers:https://www.Anchanto.[employer]/sites/default/files/product/documents/Fact_Shee h_TD_Dlxhbqjgv_Vevt_IITW-ElW-8.pdfFact Sheet for Healthcare Patients:https://www.[employer]chanto.[employer]/sites/default/files/product/ documents/Rvgm_Svtel_Wlfrszuh_Kbot_JAIQ-BjB-7.pdfPerforming Laboratory:[facility], [place] [address]DHD with platelet count + automated [id number] 06:38:00 Test Item Value Reference Range Interpretation Comments WBC (test code = 6690-2) 11.4 See_Comment H [A utomated message] The system [employer] generated this result transmitted ref erence range: 3.5 - 10 .5 K/L. The refe rence range was not u sed to interpret this result as normal/abnor mal. RBC (test code = 789-8) 4.35 See_Comment [Au tomated message] The system [employer] generated this result transmitted ref erence range: 3.93 - 5 .22 M/L. The refe rence range was not u sed to interpret this result as normal/abnor mal. MCHC (test code = 786-4) 28.0 See_Comment L [A utomated message] The system [employer] generated this result transmitted ref erence range: [...] See_Comment [Aut omated message] 777-3) The system [employer] generated this result transmitted ref erence range: 150 - 45 0 K/CU MM. The referen ce range was not u sed to interpret this result as normal/abnor mal. MPV (test code = 9.0 fL 9.4-12.3 L 12202-4) nRBC (test code = 413) 0 See_Comment [Aut omated message] The system [employer] generated this result transmitted ref erence range: [...] H [Aut omated message] 670) The system [employer] generated this result transmitted ref erence range: 1.56 - 6 .13 K/L. The refe rence range was not u sed to interpret this result as normal/abnor mal. # Lymphs (test code = 2.06 See_Comment [Auto mated message] 414) The system [employer] generated this result transmitted ref erence range: 1.18 - 3 .74 K/L. The refe rence range was not u sed to interpret this result as normal/abnor mal. # Monos (test code = 0.95 See_Comment H [Autom ated message] 415) The system [employer] generated this result transmitted ref erence range: 0.24 - 0 .36 K/L. The refe rence range was not u sed to interpret this result as normal/abnor mal. # Eos (test code = 416) 0.46 See_Comment H [Au tomated message] The system [employer] generated this result transmitted ref erence range: 0.04 - 0 .36 K/L. The refe rence range was not u sed to interpret this result as normal/abnor mal. # Baso (test code = 417) 0.03 See_Comment [A utomated message] The system [employer] generated this result transmitted ref erence range: 0.01 - 0 .08 K/L. The refe rence range was not u sed to interpret this result as normal/abnor mal. Immature 1 % 0-1 Granulocytes-Relative (test code = 2801) Lab Interpretation (test Abnormal code = 57170-2) [facility] with platelet count + automated [id number] 06:38:00 Test Item Value Reference Range Interpretation Comments WBC (test code = 6690-2) 11.4 See_Comment H [A utomated message] The system [employer] generated this result transmitted ref erence range: 3.5 - 10 .5 K/L. The refe rence range was not u sed to interpret this result as normal/abnor mal. RBC (test code = 789-8) 4.35 See_Comment [Au tomated message] The system [employer] generated this result transmitted ref erence range: 3.93 - 5 .22 M/L. The refe rence range was not u sed to interpret this result as normal/abnor mal. MCHC (test code = 786-4) 28.0 See_Comment L [A utomated message] The system [employer] generated this result transmitted ref erence range: [...] See_Comment [Aut omated message] 777-3) The system [employer] generated this result transmitted ref erence range: 150 - 45 0 K/CU MM. The referen ce range was not u sed to interpret this result as normal/abnor mal. MPV (test code = 9.0 fL 9.4-12.3 L 19433-5) nRBC (test code = 413) 0 See_Comment [Aut omated message] The system [employer] generated this result transmitted ref erence range: [...] H [Aut omated message] 670) The system [employer] generated this result transmitted ref erence range: 1.56 - 6 .13 K/L. The refe rence range was not u sed to interpret this result as normal/abnor mal. # Lymphs (test code = 2.06 See_Comment [Auto mated message] 414) The system [employer] generated this result transmitted ref erence range: 1.18 - 3 .74 K/L. The refe rence range was not u sed to interpret this result as normal/abnor mal. # Monos (test code = 0.95 See_Comment H [Autom ated message] 415) The system [employer] generated this result transmitted ref erence range: 0.24 - 0 .36 K/L. The refe rence range was not u sed to interpret this result as normal/abnor mal. # Eos (test code = 416) 0.46 See_Comment H [Au tomated message] The system [employer] generated this result transmitted ref erence range: 0.04 - 0 .36 K/L. The refe rence range was not u sed to interpret this result as normal/abnor mal. # Baso (test code = 417) 0.03 See_Comment [A utomated message] The system [employer] generated this result transmitted ref erence range: 0.01 - 0 .08 K/L. The refe rence range was not u sed to interpret this result as normal/abnor mal. Immature 1 % 0-1 Granulocytes-Relative (test code = 2801) Lab Interpretation (test Abnormal code = 88094-7) [facility] with platelet count + automated [id number] 06:38:00 Test Item Value Reference Range Interpretation Comments WBC (test code = 6690-2) 11.4 See_Comment H [A utomated message] The system [employer] generated this result transmitted ref erence range: 3.5 - 10 .5 K/L. The refe rence range was not u sed to interpret this result as normal/abnor mal. RBC (test code = 789-8) 4.35 See_Comment [Au tomated message] The system [employer] generated this result transmitted ref erence range: 3.93 - 5 .22 M/L. The refe rence range was not u sed to interpret this result as normal/abnor mal. MCHC (test code = 786-4) 28.0 See_Comment L [A utomated message] The system [employer] generated this result transmitted ref erence range: [...] See_Comment [Aut omated message] 777-3) The system [employer] generated this result transmitted ref erence range: 150 - 45 0 K/CU MM. The referen ce range was not u sed to interpret this result as normal/abnor mal. MPV (test code = 9.0 fL 9.4-12.3 L 50662-1) nRBC (test code = 413) 0 See_Comment [Aut omated message] The system [employer] generated this result transmitted ref erence range: [...] H [Aut omated message] 670) The system [employer] generated this result transmitted ref erence range: 1.56 - 6 .13 K/L. The refe rence range was not u sed to interpret this result as normal/abnor mal. # Lymphs (test code = 2.06 See_Comment [Auto mated message] 414) The system [employer] generated this result transmitted ref erence range: 1.18 - 3 .74 K/L. The refe rence range was not u sed to interpret this result as normal/abnor mal. # Monos (test code = 0.95 See_Comment H [Autom ated message] 415) The system [employer] generated this result transmitted ref erence range: 0.24 - 0 .36 K/L. The refe rence range was not u sed to interpret this result as normal/abnor mal. # Eos (test code = 416) 0.46 See_Comment H [Au tomated message] The system [employer] generated this result transmitted ref erence range: 0.04 - 0 .36 K/L. The refe rence range was not u sed to interpret this result as normal/abnor mal. # Baso (test code = 417) 0.03 See_Comment [A utomated message] The system [employer] generated this result transmitted ref erence range: 0.01 - 0 .08 K/L. The refe rence range was not u sed to interpret this result as normal/abnor mal. Immature 1 % 0-1 Granulocytes-Relative (test code = 2801) Lab Interpretation (test Abnormal code = 04152-8) [facility] W/PLT COUNT & AUTO [id number] 06:38:00 Test Item Value Reference Range Interpretation [...] PERCENT (BEAKER) (test code = 2801) Prothrombin time/[id number] 05:07:00 Test Item Value Reference Interpretation Comments [...] valves. Lab Interpretation Abnormal (test code = 70561-0) [facility]throm[facility]/[id number] 05:07:00 Test Item Value Reference Interpretation Comments [...] valves. Lab Interpretation Abnormal (test code = 11575-5) [facility]th[facility]/[id number] 05:07:00 Test Item Value Reference Interpretation Comments Range Protime (test code = 19.2 See_Comment H [Autom ated 5902-2) message] The system which generated this result transmitted reference range : 11.9 - 14.2 seconds. The reference range was not used to interpret this result as normal/abnormal . INR (test code = 1.64 See_Comment [Automated 1781-6) message] The system which generated this result [...] valves. Lab Interpretation Abnormal (test code = 62019-5) [facility] UCLAPROTHROMBIN TIME/[id number] 05:07:00 Test Item Value Reference Range Interpretation Comments PROTIME (BEAKER) 19.2 seconds 11.9-14.2 H (test code = 759) INR (BEAKER) (test 1.64 See_Comment [Automat ed message] code = 370) The system [employer] h generated this result transmitted ref erence range: [...] See_Comment H [A utomated message] The system [employer] generated this result transmitted ref erence range: 3.5 - 10 .5 K/L. The refe rence range was not u sed to interpret this result as normal/abnor mal. RBC (test code = 789-8) 4.36 See_Comment [Au tomated message] The system [employer] generated this result transmitted ref erence range: 3.93 - 5 .22 M/L. The refe rence range was not u sed to interpret this result as normal/abnor mal. MCHC (test code = 786-4) 28.6 See_Comment L [A utomated message] The system [employer] generated this result transmitted ref erence range: [...] See_Comment [Aut omated message] 777-3) The system [employer] generated this result transmitted ref erence range: 150 - 45 0 K/CU MM. The referen ce range was not u sed to interpret this result as normal/abnor mal. MPV (test code = 8.9 fL 9.4-12.3 L 67008-9) nRBC (test code = 413) 0 See_Comment [Aut omated message] The system [employer] generated this result transmitted ref erence range: 0 - 0 /1 00 WBC. The refere nce range was not u sed to interpret this result as normal/abnor mal. Lab Interpretation (test Abnormal code = 16645-1) [facility] (Hemogram only)2020-09-02 04:59:00 Test Item Value Reference Range Interpretation Comments WBC (test code = 6690-2) 10.9 See_Comment H [A utomated message] The system [employer] generated this result transmitted ref erence range: 3.5 - 10 .5 K/L. The refe rence range was not u sed to interpret this result as normal/abnor mal. RBC (test code = 789-8) 4.36 See_Comment [Au tomated message] The system [employer] generated this result transmitted ref erence range: 3.93 - 5 .22 M/L. The refe rence range was not u sed to interpret this result as normal/abnor mal. MCHC (test code = 786-4) 28.6 See_Comment L [A utomated message] The system [employer] generated this result transmitted ref erence range: [...] See_Comment [Aut omated message] 777-3) The system [employer] generated this result transmitted ref erence range: 150 - 45 0 K/CU MM. The referen ce range was not u sed to interpret this result as normal/abnor mal. MPV (test code = 8.9 fL 9.4-12.3 L 78317-5) nRBC (test code = 413) 0 See_Comment [Aut omated message] The system [employer] generated this result transmitted ref erence range: 0 - 0 /1 00 WBC. The refere nce range was not u sed to interpret this result as normal/abnor mal. Lab Interpretation (test Abnormal code = 75036-0) [facility] (Hemogram only)2020-09-02 04:59:00 Test Item Value Reference Range Interpretation Comments WBC (test code = 6690-2) 10.9 See_Comment H [A utomated message] The system [employer] generated this result transmitted ref erence range: 3.5 - 10 .5 K/L. The refe rence range was not u sed to interpret this result as normal/abnor mal. RBC (test code = 789-8) 4.36 See_Comment [Au tomated message] The system [employer] generated this result transmitted ref erence range: 3.93 - 5 .22 M/L. The refe rence range was not u sed to interpret this result as normal/abnor mal. MCHC (test code = 786-4) 28.6 See_Comment L [A utomated message] The system [employer] generated this result transmitted ref erence range: [...] See_Comment [Aut omated message] 777-3) The system [employer] generated this result transmitted ref erence range: 150 - 45 0 K/CU MM. The referen ce range was not u sed to interpret this result as normal/abnor mal. MPV (test code = 8.9 fL 9.4-12.3 L 32824-5) nRBC (test code = 413) 0 See_Comment [Aut omated message] The system [employer] generated this result transmitted ref erence range: 0 - 0 /1 00 WBC. The refere nce range was not u sed to interpret this result as normal/abnor mal. Lab Interpretation (test Abnormal code = 55051-9) [facility] (HEMOGRAM ONLY)2020-09-02 04:59:00 Test Item Value [...] (BEAKER) (test code = 413) U/S, CORE [id number] 08:58:00Reason for exam:->BIOPSY LEFT ILIOPSOAS MASS US VS CT GUIDED [facility]STIAN[facility] : 1960 Sex: FFINAL REPORT Procedure: Ultrasound-Guided left iliopsoas/inguinal mass core biopsy Pre/post-procedure diagnosis: Left iliopsoas/inguinal mass Clinical Science Consultant: Abdirahman Chopra MD Assistants: none Sedation: Moderate [...] Verified Date/Time: 09/01/2020 08:58:59 Reading Location: [facility] Diagnostic Imaging [place] Room [place] [address] 1.310.12 US Core [id number] 08:58:00Interface, External Ris In - 09/01/2020 9:01 AM CDTFINAL REPORT Procedure: Ultrasound-Guided left iliopsoas/inguinal mass core biopsy Pre/post-procedure diagnosis: Left iliopsoas /inguinal mass Clinical Science Consultant: Abdirahman Chopra MD Assistants: none Sedation: Moderate [...] Verified Date/Time: 09/01/2020 08:58:59 Reading Location: [facility] Diagnostic Imaging Reading Room - [facility].310.12 [facility] 2020-09-01 08:58:00Interface, External Ris In - 09/01/2020 9:01 AM CDTFINAL REPORT Procedure: Ultrasound-Guided left iliopsoas/inguinal mass core biopsy Pre/post-procedure diagnosis: Left iliopsoas /inguinal mass Clinical Science Consultant: Abdirahman Chopra MD Assistants: none Sedation: Moderate [...] MDRmaude Verified Date/Time: 09/01/2020 08:58:59 Reading Location: [facility] Diagnostic Imaging Reading Room - [facility] 1.310.12 [facility] 2020-09-01 08:58:00Interface, External Ris In - 09/01/2020 9:01 AM CDTFINAL REPORT Procedure: Ultrasound-Guided left iliopsoas/inguinal mass core biopsy Pre/post-procedure diagnosis: Left iliopsoas /inguinal mass Clinical Science Consultant: Abdirahman Chopra MD Assistants: none Sedation: Moderate [...] Verified Date/Time: 09/01/2020 08:58:59 Reading Location: [facility] Diagnostic Imaging Reading Room - [facility] 1.310.12 [facility] (HEMOGRAM ONLY)2020-09-01 05:07:00 Test Item Value [...] 0-0 (BEAKER) (test code = 413) PROTHROMBIN TIME/[id number] 04:44:00 Test Item Value Reference Range Interpretation Comments PROTIME (BEAKER) 19.1 seconds 11.9-14.2 H (test code = 759) INR (BEAKER) (test 1.63 See_Comment [Automat ed message] code = 370) The system [employer] generated this result transmitted ref erence range: <=5.90. The reference range was not used to int erpret this result as normal/abnormal . RECOMMENDED COUMADIN/WARFARIN INR THERAPY RANGESSTANDARD DOSE: 2.0 - 3.0 Includes: PROPHYLAXIS forvenous thrombosis, systemic embolization; TREATMENT for venous thrombosis and/or pulmonary embolus.HIGH RISK: Target INR is 2.5-3.5 for patients with mechanical heart valves.Vitamin B12 and [id number] 06:16:00 Test Item Value Reference Range Interpretation Comments Vitamin B12 (test 327 pg/mL 213-816 code = 2132-9) Folate (test code = 3.70 ng/mL See_Comment L [Automa yumiko 2284-8) message] The system which generated this result transmit yumiko reference range : >=7.00. The reference range was not used to interpret this result as normal/abnormal . JESSICA (test code = JESSICA) Non Licensed Nuclear Equipment Operator ID - BALA M Lab Interpretation Abnormal (test code = 93196-0) [facility]CLAVitamin B12 and [id number] 06:16:00 Test Item Value Reference Range Interpretation Comments Vitamin B12 (test 327 pg/mL 213-816 code = 2132-9) Folate (test code = 3.70 ng/mL See_Comment L [Automa yumiko 2284-8) message] The system which generated this result transmit yumiko reference range : >=7.00. The reference range was not used to interpret this result as normal/abnormal . JESSICA (test code = JESSICA) Non Licensed Nuclear Equipment Operator ID - BALA M Lab Interpretation Abnormal (test code = 79031-0) [facility]CLAVitamin B12 and [id number] 06:16:00 Test Item Value Reference Range Interpretation Comments Vitamin B12 (test 327 pg/mL 213-816 code = 2132-9) Folate (test code = 3.70 ng/mL See_Comment L [Automa yumiko 2284-8) message] The system which generated this result transmit yumiko reference range : >=7.00. The reference range was not used to interpret this result as normal/abnormal . JESSICA (test code = JESSICA) Non Licensed Nuclear Equipment Operator ID - BALA Hernandez Lab Interpretation Abnormal (test code = 90748-3) [facility] UCLAVITAMIN B12 AND [id number] 06:16:00 Test Item Value Reference Range Interpretation Comments VITAMIN B12 (BEAKER) 327 pg/mL 213-816 (test code = 774) FOLATE (BEAKER) 3.70 ng/mL See_Comment L [Automated message] (test code = 362) The system which generated this result transmitted ref erence range: >=7.00. The reference range was not used to interpr et this result as normal/abnormal . Non Licensed Nuclear Equipment Operator ID Maricruz MCKENNA MPROTHROMBIN TIME/[id number] 05:36:00 Test Item Value Reference Range Interpretation Comments PROTIME (BEAKER) 21.8 seconds 11.9-14.2 H (test code = 759) INR (BEAKER) (test 1.92 See_Comment [Automat ed message] code = 370) The system [employer] generated this result transmitted ref erence range: [...] 0-0 (BEAKER) (test code = 413) CT, [id number] 11:32:00Unlisted Reason for Exam - Click Yes and Enter Reason Below->NoWill this procedure require oral contrast?->No [facility] 1960 Sex: [...] size and patent. Right lower extremity: The INSTITUTIONAL COOK, DFA, SFA, and popliteal arteries are patent. Trifurcation vessels are patent. Left lower extremity: The INSTITUTIONAL COOK, DFA, SFA, and popliteal arteries are patent. [...] No evidence remote metastatic disease. Signed: Kale Jay MDReport Verified Date/Time: 08/30/2020 11:32:07 Reading Location: [place] [address] [address] Reading [address], CTA AAA, W/ BELLA.EXT.RUNOFF 2020-08-30 11:32:00LLE DVT, assess prior pelvic mass, please assess venous phaseAnesthesia:->None [facility] 1960 [...] size and patent. Right lower extremity: The INSTITUTIONAL COOK, DFA, SFA, and popliteal arteries are patent. Trifurcation vessels are patent. Left lower extremity: The INSTITUTIONAL COOK, DFA, SFA, and popliteal arteries are patent. [...] No evidence remote metastatic disease. Signed: Kale Jay MDReport Verified Date/Time: 08/30/2020 11:32:07 Reading Location: [place] [address] [address] Reading Room CT abdomen/pelvis with [...] size and patent. Right lower extremity: The INSTITUTIONAL COOK, DFA, SFA, and popliteal arteries are patent. Trifurcation vessels are patent. Left lower extremity: The INSTITUTIONAL COOK, DFA, SFA, and popliteal arteries are patent. [...] edema.No evidence remote metastatic disease. Signed: Kale Jay MDReport Verified Date/Time: 08/30/2020 11:32:07 Reading Location: [place] [address] Angio Body Reading Room [facility] AAA and [id number] 11:32:00Interface, External Ris In - 08/30/2020 11:34 [...] size and patent. Right lower extremity: The INSTITUTIONAL COOK, DFA, SFA, and popliteal arteries are patent. Trifurcation vessels are patent. Left lower extremity: The INSTITUTIONAL COOK, DFA, SFA, and popliteal arteries are patent. [...] edema.No evidence remote metastatic disease. Signed: Kale Jayeport Verified Date/Time: 08/30/2020 11:32:07 Reading Location: [facility] P048 Angio Body Reading Room [facility]pelvis with IV [id number] 11:32:00Interface, External Ris In - 08/30/2020 11:34 [...] size and patent. Right lower extremity: The INSTITUTIONAL COOK, DFA, SFA, and popliteal arteries are patent. Trifurcation vessels are patent. Left lower extremity: The INSTITUTIONAL COOK, DFA, SFA, and popliteal arteries are patent. [...] edema.No evidence remote metastatic disease. Signed: Kale Jayeport Verified Date/Time: 08/30/2020 11:32:07 Reading Location: [facility] B1 P048 Angio Body Reading Room [facility] AAA and [id number] 11:32:00Interface, External Ris In - 08/30/2020 11:34 [...] size and patent. Right lower extremity: The INSTITUTIONAL COOK, DFA, SFA, and popliteal arteries are patent. Trifurcation vessels are patent. Left lower extremity: The INSTITUTIONAL COOK, DFA, SFA, and popliteal arteries are patent. [...] edema.No evidence remote metastatic disease. Signed: Kale Jay MDReport Verified Date/Time: 08/30/2020 11:32:07 Reading Location: [facility] P048 Angio Body Reading Room [facility]/pelvis with IV [id number] 11:32:00Interface, External Ris In - 08/30/2020 11:34 [...] size and patent. Right lower extremity: The INSTITUTIONAL COOK, DFA, SFA, and popliteal arteries are patent. Trifurcation vessels are patent. Left lower extremity: The INSTITUTIONAL COOK, DFA, SFA, and popliteal arteries are patent. [...] edema.No evidence remote metastatic disease. Signed: Kale Jay MDReport Verified Date/Time: 08/30/2020 11:32:07 Reading Location: [facility] P048 Angio Body Reading Room [facility] AAA and [id number] 11:32:00Interface, External Ris In - 08/30/2020 11:34 [...] size and patent. Right lower extremity: The INSTITUTIONAL COOK, DFA, SFA, and popliteal arteries are patent. Trifurcation vessels are patent. Left lower extremity: The INSTITUTIONAL COOK, DFA, SFA, and popliteal arteries are patent. [...] edema.No evidence remote metastatic disease. Signed: Kale Jay MDReplakeland regional hospital Verified Date/Time: 08/30/2020 11:32:07 Reading Location: [place] [address] Angio Body Reading Room [facility] HospitalArterial doppler leg, [id number] 09:31:54Ejection [facility] MK[facility]ON [facility] Left Impression1. The common femoral, profunda femoral, [...] ! +--- + + + + + !Madiha Dukesi teal ! !75.5 ! ! ! + + + + + + !Mid FINANCE CONTROLLER ! !59.4 ! ! ! + + +-- + + + !Dist FINANCE CONTROLLER ! !61.6 ! ! ! + + [...] Study 08/29/2020 NEELAM Age 60 Visit Number [id number] Gender Female Accession Number [id number] Date of 1960 Referring [facility] Room Number 2546 Physician Richard Soil Fertility Specialist Stacy Proctor Interpreting Vivek Benitez MD RVT Physician ProcedureType [...] + + + + + + !Mid FINANCE CONTROLLER ! !59.4 ! ! ! + + + + + + !Dist FINANCE CONTROLLER ! !61.6 ! ! ! + + + ---------+ + + !Prox JANETTE ! !64.3 ! ! ! + + + +---- + + !Mid JANETTE ! !80.3 ! ! ! + + + + + + !Dist JANETTE ! !67.1 ! ! ! + + + + + +[facility] Center[facility], [id number] 09:31:54Ejection [facility] Left Impression1. The common femoral, profunda [...] + + + + + + !Mid FINANCE CONTROLLER ! !59.4 ! ! ! + + +-- + + + !Dist FINANCE CONTROLLER ! !61.6 ! ! ! + + [...] Study 08/29/2020 NEELAM Age 60 Visit Number [id number] Gender Female Accession Number [id number] Date of 1960 Referring Tricia Room Number 2540 Physician Richard Soil Fertility Specialist Stacy Proctor Interpreting Vivek Benitez MD T [...] + + + + + + !Mid FINANCE CONTROLLER ! !59.4 ! ! ! + + + + + + !Dist FINANCE CONTROLLER ! !61.6 ! ! ! + + + ---------+ + + !Prox JANETTE ! !64.3 ! ! ! + + + +---- + + !Mid JANETTE ! !80.3 ! ! ! + + + + + + !Dist JANETTE ! !67.1 ! ! ! + + + + + +[facility] CenterArterial doppler leg, [id number] 09:31:54Ejection [facility] HEARTLAB CKESSON [facility] Left Impression1. The common femoral, profunda [...] ! +--- + + + + + !Madiha Dukesi teal ! !75.5 ! ! ! + + + + + + !Mid FINANCE CONTROLLER ! !59.4 ! ! ! + + +-- + + + !Dist FINANCE CONTROLLER ! !61.6 ! ! ! + + [...] Study 08/29/2020 NEELAM Age 60 Visit Number [id number] Gender Female Accession Number [id number] Date of 1960 Referring [facility] Room Number 2546 Physician Richard Soil Fertility Specialist Stacy Proctor Interpreting Vivek Benitez MD RVT Physician ProcedureType [...] + + + + + + !Mid FINANCE CONTROLLER ! !59.4 ! ! ! + + + + + + !Dist FINANCE CONTROLLER ! !61.6 ! ! ! + + + ---------+ + + !Prox JANETTE ! !64.3 ! ! ! + + + +---- + + !Mid JANETTE ! !80.3 ! ! ! + + + + + + !Dist JANETTE ! !67.1 ! ! ! + + + + + +[facility] CenterBUN and [id number] 06:17:00 Test Item Value Reference Range Interpretation [...] mL/min/1.73 [place] [address]-0) NOT ACCURATE CREATININE CLEARANCE IN PREDICTING GLOMERULAR FILTRATION RATE . ESTIMATED GFR I S NOT APPLICABLE FOR DIALYSIS PATIEN TS. JESSICA (test code = Non Licensed Nuclear Equipment Operator ID - BS JESSICA) [facility] and [id number] 06:17:00 Test Item Value Reference Range Interpretation [...] mL/min/1.[place] [address]-0) NOT ACCURATE CREATININE CLEARANCE IN PREDICTING GLOMERULAR FILTRATION RATE . ESTIMATED GFR I S NOT APPLICABLE FOR DIALYSIS PATIEN TS. JESSICA (test code = Non Licensed Nuclear Equipment Operator ID - BS JESSICA) [facility] and [id number] 06:17:00 Test Item Value Reference Range Interpretation Comments BUN (test code = 13 mg/dL 7 3094-0) Creatinine (test 0.72 mg/dL 0.57-1.25 code = 2160-0) BUN/Creatinine 18 For a normal ratio (test code = individua l on a 3097-3) normal diet, th e reference inter jewel for the mass ra nabil ranges between 12:1 and 20:1 ( BUN in mg/dL/creatinin e in mg/dL) EGFR (test code = 100 mL/min/1.[place] [address]-3) NOT ACCURATE CREATININE CLEARANCE IN PREDICTING GLOMERULAR FILTRATION RATE . ESTIMATED GFR I S NOT APPLICABLE FOR DIALYSIS PATIEN TS. JESSICA (test code = Non Licensed Nuclear Equipment Operator ID - BS JESSICA) [facility] AND CREATININE [id number] 06:17:00 Test Item Value Reference Range Interpretation Comments BLOOD UREA NITROGEN 13 mg/dL 7- (BEAKER) (test code = 354) CREATININE (BEAKER) 0.72 mg/dL 0.57-1.25 (test code = 358) BUN/CREAT RATIO 18 For a normal (BEAKER) (test code individu al on a = 2361440447) normal diet, t he reference inter jewel for the mass ra nabil ranges between 12:1 and 20:1 (BUN i n mg/dL/creatinin e in mg/dL) EGFR (BEAKER) (test 100 mL/min/1.73 ESTIM ATED GFR IS code = 1092) sq m NOT ACCURATE CREATININE CLEARANCE IN PREDICTING GLOMERULAR FILTRATION RATE . ESTIMATED GFR I S NOT APPLICABLE FOR DIALYSIS PATIEN TS. Non Licensed Nuclear Equipment Operator ID - BSCBC (HEMOGRAM ONLY)2020-08-30 05:50:00 Test [...] 0-0 (BEAKER) (test code = 413) PROTHROMBIN TIME/[id number] 05:48:00 Test Item Value Reference Range Interpretation Comments PROTIME (BEAKER) 21.5 seconds 11.9-14.2 H (test code = 759) INR (BEAKER) (test 1.89 See_Comment [Automat ed message] code = 370) The system [employer] generated this result transmitted ref erence range: [...] 1.0-2.0 units/mL once daily enoxaparin Ref: CHEST 2012;141:[id number] Lab Interpretation (test Normal code = 28721-0) [facility] UCLAHeparin Assay - Low Molecular [id number] 14:07:00 Test Item Value Reference Range Interpretation Comments Anti 10A-Lovenox (test 0.85 u/ml 0.6-2 code = 1605) JESSICA (test code = JESSICA) Anti-Factor 10-A Level (Heparin Assay for Low Molecular Weight Heparin)Monitoring Guidelines: Blood samples should be obtained 4 hours post subcutaneous injection (time of Peak level) Therapeutic Peak Levels: 0.6-1.0 units/mL twice daily enoxaparin 1.0-2.0 units/mL once daily enoxaparin Ref: CHEST 2012;141:[id number] Lab Interpretation (test Normal code = 33017-2) [facility]AHeparin Assay - Low Molecular [id number] 14:07:00 Test Item Value Reference Range Interpretation Comments Anti 10A-Lovenox (test 0.85 u/ml 0.6-2 code = 1605) JESSICA (test code = JESSICA) Anti-Factor 10-A Level (Heparin Assay for Low Molecular Weight Heparin)Monitoring Guidelines: Blood samples should be obtained 4 hours post subcutaneous injection (time of Peak level) Therapeutic Peak Levels: 0.6-1.0 units/mL twice daily enoxaparin 1.0-2.0 units/mL once daily enoxaparin Ref: CHEST 2012;141:[id number] Lab Interpretation (test Normal code = 75983-1) [facility] UCLAHEPARIN ASSAY - LOW MOLECULAR [id number] 14:07:00 Test Item Value Reference Range Interpretation Comments LOVENOX-ANTI 10A (BEAKER) (test 0.85 u/ml 0.60-2.00 code = 1605) Anti-Factor 10-A Level (Heparin Assay for Low Molecular Weight Heparin)Monitoring Guidelines: Blood samples should be obtained 4 hours post subcutaneous injection (time of Peak level) Therapeutic Peak Levels: 0.6-1.0 units/mL twice daily enoxaparin 1.0-2.0 units/mL once daily enoxaparinRef: CHEST 2012;141:[id number] (HEMOGRAM ONLY)2020-08-29 13:22:00 Test Item Value Reference [...] 0-0 (BEAKER) (test code = 413) PROTHROMBIN TIME/[id number] 05:41:00 Test Item Value Reference Range Interpretation Comments PROTIME (BEAKER) 17.4 seconds 11.9-14.2 H (test code = 759) INR (BEAKER) (test 1.45 See_Comment [Automat ed message] code = 370) The system [employer] generated this result transmitted ref erence range: <=5.90. The reference range was not used to int erpret this result as normal/abnormal . RECOMMENDED COUMADIN/WARFARIN INR THERAPY RANGESSTANDARD DOSE: 2.0 - 3.0 Includes: PROPHYLAXIS forvenous thrombosis, systemic embolization; TREATMENT for venous thrombosis and/or pulmonary embolus.HIGH RISK: Target INR is 2.5-3.5 for patients with mechanical heart valves.BUN AND CREATININE [id number] 17:04:00 Test Item Value Reference Range Interpretation Comments BLOOD UREA NITROGEN 9 mg/dL 7-21 (HARDIK) (test code = 354) CREATININE (HARDIK) 0.79 mg/dL 0.57-1.25 (test code = 358) BUN/CREAT RATIO 11 For a normal (HARDIK) (test code individu al on a = 3669818828) normal diet, t he reference inter jewel for the mass ra nabil ranges between 12:1 and 20:1 (BUN i n mg/dL/creatinin e in mg/dL) EGFR (HARDIK) (test 90 mL/min/1.73 ESTIMA YUMIKO GFR IS code = 1092) sq m NOT ACCURATE CREATININE CLEARANCE IN PREDICTING GLOMERULAR FILTRATION RATE . ESTIMATED GFR I S NOT APPLICABLE FOR DIALYSIS PATIEN TS. Non Licensed Nuclear Equipment Operator ID - DBVenous doppler leg, [id number] 15:52:54Ejection FractionSLEH ECHO HEARTLAB MKCKESSON CPACS Left [...] Study 08/28/2020 NEELAM Age 60 Visit Number [id number] Gender Female Accession Number [id number] Date of 1960 Referring Tricia Mary Room Number 6 Physician Elizabethca Soil Fertility Specialist Jarad Benitez MD RVT Physician ProcedureType of Study: [...] in cm/s ; Diameters are measured in [facility] Venous doppler leg, [id number] 15:52:54[facility] Left Impression1. There is partial echolucent deep [...] Study 08/28/2020 NEELAM Age 60 Visit Number [id number] Gender Female Accession Number [id number] Date of 1960 Referring Tricia Hernandez Room Number 9726 Physician Richard Soil Fertility Specialist Jarad Mayberry Interpreting Vivek Benitez MD RVT [...] in cm/s ; Diameters are measured in [facility] Venous doppler leg, [id number] 15:52:54Ejection FractionSLEH ECHO HEARTLAB [facility] Left Impression1. There is partial echolucent deep [...] Study 08/28/2020 NEELAM Age 60 Visit Number [id number] Gender Female Accession Number [id number] Date of 1960 Referring Tricia Room Number 2546 Physician Richard Soil Fertility Specialist Jarad Mayberry Interpreting Vivek Benitez MD RVT [...] in cm/s ; Diameters are measured in [facility] SARS-COV2/RT-PCR ([facility])2020-08-28 12:32:00 Test Item Value Reference Range Interpretation Comments SARS-COV2/RT-PCR (test Negative Not Detected, Negative, code = 2494134) See external report for linked test SARS-COV-[address] [facility] (test code = 5729667) Negative result for this test determines that [...] 564(g) of the Act.Fact Sheet for Healthcare Providers:https://www.[employer]/sites/default/files/product/documents/Fact_Shee s_WR_Eqwqdupvu_Hkwt_TWCC-BqG-4.pdfFact Sheet for Healthcare Patients:https://www.[employer]/sites/default/files/product/ documents/Cpvm_Qbrlt_Jgkganbh_Nrop_ZJAM-PbQ-4.pdfPerforming Laboratory:[facility], [place] [address]RQRSWKEOMGV TIME/INR 2020-08-28 05:15:00 Test Item Value Reference Range Interpretation Comments PROTIME (BEAKER) 16.1 seconds 11.9-14.2 H (test code = 759) INR (BEAKER) (test 1.31 See_Comment [Automat ed message] code = 370) The system [employer] generated this result transmitted ref erence range: [...] 0-0 (BEAKER) (test code = 413) PROTHROMBIN TIME/[id number] 16:24:00 Test Item Value Reference Range Interpretation Comments PROTIME (BEAKER) 14.7 seconds 11.9-14.2 H (test code = 759) INR (BEAKER) (test 1.20 See_Comment [Automat ed message] code = 370) The system [employer] generated this result transmitted ref erence range: [...] 0-0 (BEAKER) (test code = 413) PROTHROMBIN TIME/[id number] 14:53:00 Test Item Value Reference Range Interpretation Comments PROTIME (BEAKER) 10.1 seconds 9.8-12.0 (test code = 759) INR (BEAKER) (test 0.94 See_Comment [Automat ed message] code = 370) The system [employer] generated this result transmitted ref erence range: [...] 0-0 (BEAKER) (test code = 413) PROTHROMBIN TIME/[id number] 19:23:00 Test Item Value Reference Range Interpretation Comments PROTIME (BEAKER) 15.0 seconds 11.9-14.2 H (test code = 759) INR (BEAKER) (test 1.20 See_Comment [Automat ed message] code = 370) The system [employer] generated this result transmitted ref erence range: [...] 0-1 PERCENT (BEAKER) (test code = 2801) [id number] 07:38:00 Test Item Value Reference Range Interpretation Comments PTT (test code = 62.8 See_Comment H [Automated message] 64438-5) The system [employer] generated this result transmitted ref erence range: 22.5 - 3 6.0 seconds. The reference range was not used to int erpret this result as normal/abnormal . Lab Interpretation (test Abnormal code = 73785-8) [facility] UCLAaPTT2021-06-11 07:38:00 Test Item Value Reference Range Interpretation Comments PTT (test code = 62.8 See_Comment H [Automated message] 40443-8) The system [employer] generated this result transmitted ref erence range: 22.5 - 3 6.0 seconds. The reference range was not used to int erpret this result as normal/abnormal . Lab Interpretation (test Abnormal code = 56998-3) [facility] UCLAaPTT2021-06-11 07:38:00 Test Item Value Reference Range Interpretation Comments PTT (test code = 62.8 See_Comment H [Automated message] 84281-0) The system [employer] generated this result transmitted ref erence range: 22.5 - 3 6.0 seconds. The reference range was not used to int erpret this result as normal/abnormal . Lab Interpretation (test Abnormal code = 47450-1) [facility] UCLAAPTT2021-06-11 07:38:00 Test Item Value Reference Range Interpretation [...] WBC 0-0 (BEAKER) (test code = 413) [id number] 23:09:00 Test Item Value Reference Range Interpretation Comments PARTIAL THROMBOPLASTIN TIME 48.3 seconds 22.5-36.0 H (BEAKER) (test code = 760) [id number] 12:59:00 Test Item Value Reference Range Interpretation Comments PARTIAL THROMBOPLASTIN TIME 33.5 seconds 22.5-36.0 (BEAKER) (test code = 760) Basic Metabolic [id number] 06:56:00 Test Item Value Reference Range Interpretation Comments Sodium (test code = 140 meq/L 935-115 6859-2) Potassium (test 4.4 meq/L 3.5-5.1 code = 2823-3) Chloride (test code 100 meq/L 98-107 = 2075-0) CO2 (test code = 27 meq/L 2027-11) BUN (test code = 13 mg/dL 10-04 3094-0) Creatinine (test 0.81 mg/dL 0.57-1.25 code = 2160-0) Glucose (test code 101 mg/dL 70-105 = 2345-7) Calcium (test code 9.7 mg/dL 8.4-10.2 = 08230-2) EGFR (test code = 87 mL/min/1.[place] [address]-6) NOT ACCURATE CREATININE CLEARANCE IN PREDICTING GLOMERULAR FILTRATION RATE . ESTIMATED GFR I S NOT APPLICABLE FOR DIALYSIS PATIEN TSMaximiliano LOPEZ (test code = Non Licensed Nuclear Equipment Operator ID - JESSICA) BALA Hernandez [facility] CenterBasi Metabolic [id number] 06:56:00 Test Item Value Reference Range Interpretation Comments Sodium (test code = 140 meq/L 770-533 7563-2) Potassium (test 4.4 meq/L 3.5-5.1 code = 2823-3) Chloride (test code 100 meq/L 98-107 = 2075-0) CO2 (test code = 27 meq/L 2027-9) BUN (test code = 13 mg/dL 10-04 3094-0) Creatinine (test 0.81 mg/dL 0.57-1.25 code = 2160-0) Glucose (test code 101 mg/dL 70-105 = 2345-7) Calcium (test code 9.7 mg/dL 8.4-10.2 = 72119-7) EGFR (test code = 87 mL/min/1.[place] [address]-9) NOT ACCURATE CREATININE CLEARANCE IN PREDICTING GLOMERULAR FILTRATION RATE . ESTIMATED GFR I S NOT APPLICABLE FOR DIALYSIS PATIEN JESSICA (test code = Non Licensed Nuclear Equipment Operator ID - JESSICA) [facility] Metabolic [id number] 06:56:00 Test Item Value Reference Range Interpretation Comments Sodium (test code = 140 meq/L 436-885 8074-2) Potassium (test 4.4 meq/L 3.5-5.1 code = 2823-3) Chloride (test code 100 meq/L 98-107 = 2075-0) CO2 (test code = 27 meq/L 22-29 8-9) BUN (test code = 13 mg/dL 7-21 3094-0) Creatinine (test 0.81 mg/dL 0.57-1.25 code = 2160-0) Glucose (test code 101 mg/dL 70-105 = 2345-7) Calcium (test code 9.7 mg/dL 8.4-10.2 = 38333-7) EGFR (test code = 87 mL/min/1.73 [place] [address]-0) NOT ACCURATE CREATININE CLEARANCE IN PREDICTING GLOMERULAR FILTRATION RATE . ESTIMATED GFR I S NOT APPLICABLE FOR DIALYSIS PATIEN JESSICA (test code = Non Licensed Nuclear Equipment Operator ID - JESSICA) [facility] METABOLIC [id number] 06:56:00 Test Item Value Reference Range Interpretation [...] S NOT APPLICABLE FOR DIALYSIS PATIEN TS. Non Licensed Nuclear Equipment Operator ID - BALA MCBC (HEMOGRAM ONLY)2020-08-24 06:41:00 [...] WBC 0-0 (BEAKER) (test code = 413) [id number] 06:32:00 Test Item Value Reference Range Interpretation Comments PARTIAL THROMBOPLASTIN TIME 34.7 seconds 22.5-36.0 (BEAKER) (test code = 760) [id number] 22:03:00 Test Item Value Reference Range Interpretation Comments PARTIAL THROMBOPLASTIN TIME 36.0 seconds 22.5-36.0 (BEAKER) (test code = 760) [id number] 14:36:00 Test Item Value Reference Range Interpretation [...] (BEAKER) (test code = 413) BASIC METABOLIC [id number] 05:47:00 Test Item Value Reference Range Interpretation [...] S NOT APPLICABLE FOR DIALYSIS PATIEN TS. Non Licensed Nuclear Equipment Operator ID - BAL WCBC (HEMOGRAM ONLY)2020-08-23 05:19:00 Test Item Value Reference [...] = 413) U/S, EXTREMITY, LOWER, LEFT (NON-VASCULAR) [id number] 15:15:00Please obtain biopsy of inguinal mass. Pending discharge Reason for exam:->Large left inguinal mass / lymphadenopathy [facility] 1960 Sex: [...] retroperitoneal hematoma is not visualized. Signed: Rick Muniz MDReport Verified Date/Time: 08/22/2020 15:15:14 Reading Location: [address] Consult Reading Room US extremity non-vascular limited [id number] 15:15:00 Interface, External Ris In - 08/22/2020 [...] retroperitoneal hematoma is not visualized. Signed: Rick Muniz Verified Date/Time: 08/22/2020 15:15:14 Reading Location: [facility] C013 Consult Reading Room Electronically signed by: Cassandra QUIJANO 08/22/2020 03:15 [facility] [id number] 15:15:00Interface, External Ris In - 08/22/2020 3:17 [...] retroperitoneal hematoma is not visualized. Signed: Rick Muniz Verified Date/Time: 08/22/2020 15:15:14 Reading Location: [facility] C013W Consult Reading Room Electronically signed by: Cassandra QUIJANO 08/22/2020 03:15 [facility]US extremity non- vascular limited [id number] 15:15:00Interface, External Ris In - 08/22/2020 3:17 [...] retroperitoneal hematoma is not visualized. Signed: Rick Muniz MDReport Verified Date/Time: 08/22/2020 15:15:14 Reading Location: [address] Consult Reading Room Electronically signed by: Cassandra QUIJANO 08/22/2020 03:15 [facility] MET[facility]OLIC [id number] 06:22:00 Test Item Value Reference Range Interpretation [...] S NOT APPLICABLE FOR DIALYSIS PATIEN TS. Non Licensed Nuclear Equipment Operator [place] - BALA CHONG (HEMOGRAM ONLY)2020-08-22 05:57:00 Test Item Value Reference [...] (BEAKER) (test code = 413) COMPREHENSIVE METABOLIC [id number] 07:02:00 Test Item Value Reference Range Interpretation [...] S NOT APPLICABLE FOR DIALYSIS PATIEN TS. Non Licensed Nuclear Equipment Operator ID - BALA MPROTHROMBIN TIME/[id number] 06:42:00 Test Item Value Reference Range Interpretation Comments PROTIME (BEAKER) 13.7 seconds 11.9-14.2 (test code = 759) INR (BEAKER) (test 1.08 See_Comment [Automat ed message] code = 370) The system [employer] generated this result transmitted ref erence range: [...] 413) RAD, SPINE, LUMBAR, 2 OR 3 [id number] 20:22:00Reason for exam:->low back pain, [facility] : 1960 Sex: [...] LEFT 2020-08-20 20:22:00Reason for exam:->knee pain, fall [facility] : 1960 Sex: [...] 2-3 VIEWS, LEFT, TO INCL PELVIS WHEN [id number] 20:22:00Reason for exam:->hip pain, fall [facility] : 1960 Sex: [...] Date/Time: 08/20/2020 20:22:11 XR hip 2 views [id number] 20:22:00Interface, External Ris In - 08/20/2020 8:24 [...] Prateek Fung MDReport Verified Date/Time: 08/20/2020 20:22:11 [facility] [id number] 20:22:00Interface, External Ris In - 08/20/2020 8:24 [...] Prateek Fung MDReport Verified Date/Time: 08/20/2020 20:22:11 [facility] 2 [facility] left 2020-08-20 20:22:00Interface, [...] Prateek Fung MDReport Verified Date/Time: 08/20/2020 20:22:11 [facility]XR spine lumbar 2 or 3 [id number] 20:22:00Interface, External Ris In - 08/20/2020 8:24 [...] Prateek Fung MDReport Verified Date/Time: 08/20/2020 20:22:11 [facility]XR spine lumbar 2 or 3 [id number] 20:22:00Interface, External Ris In - 08/20/2020 8:24 [...] Prateek Fung MDReport Verified Date/Time: 08/20/2020 20:22:11 [facility]XR [facility] lumbar 2 or 3 [id number] 20:22:00Interface, External Ris In - 08/20/2020 8:24 [...] Prateek Fung MDReport Verified Date/Time: 08/20/2020 20:22:11 [facility] 2020-08-20 20:22:00Interface, [...] Osseous degenerative changes discussed above. Signed: Prateek Fungort Verified Date/Time: 08/20/2020 20:22:11 [facility] [id number] 20:22:00Interface, External Ris In - 08/20/2020 8:24 [...] Prateek Fung MDReport Verified Date/Time: 08/20/2020 20:22:11 [facility] 2020-08-20 20:22:00Interface, [...] Prateek Fung MDReport Verified Date/Time: 08/20/2020 20:22:11 [facility]2020-08-20 15:47:00 Test Item Value Reference Range Interpretation Comments LDH (test code = 2532-0) 228 U/L 125-220 H JESSICA (test code = JESSICA) Non Licensed Nuclear Equipment Operator ID - DB Lab Interpretation (test Abnormal code = 87599-1) [facility] 15:47:00 Test Item Value Reference Range Interpretation Comments Magnesium (test code = 2.2 mg/dL 1.6-2.6 17922-8) JESSICA (test code = JESSICA) Non Licensed Nuclear Equipment Operator ID - DB Lab Interpretation (test Normal code = 97235-2) [facility] 15:47:00 Test Item Value Reference Range Interpretation Comments Phosphorus (test code = 3.1 mg/dL 2.3-4.7 2777-1) JESSICA (test code = JESSICA) Non Licensed Nuclear Equipment Operator ID - DB Lab Interpretation (test Normal code = 32961-8) [facility] [id number] 15:47:00 Test Item Value Reference Range Interpretation Comments Uric Acid (test code = 5.1 mg/dL 2.6-7.2 3084-1) JESSICA (test code = JESSICA) Non Licensed Nuclear Equipment Operator ID - DB Lab Interpretation (test Normal code = 16333-9) [facility] (LDH)2020-08-20 15:47:00 Test Item Value Reference Range Interpretation Comments LDH (test code = 2532-0) 228 U/L 125-220 H JESSICA (test code = JESSICA) Non Licensed Nuclear Equipment Operator ID - DB Lab Interpretation (test Abnormal code = 81604-3) [facility]-06 15:47:00 Test Item Value Reference Range Interpretation Comments Magnesium (test code = 2.2 mg/dL 1.6-2.6 64574-8) JESSICA (test code = JESSICA) Non Licensed Nuclear Equipment Operator ID - DB Lab Interpretation (test Normal code = 69098-2) [facility]-06 15:47:00 Test Item Value Reference Range Interpretation Comments Phosphorus (test code = 3.1 mg/dL 2.3-4.7 2777-1) JESSICA (test code = JESSICA) Non Licensed Nuclear Equipment Operator ID - DB Lab Interpretation (test Normal code = 79538-1) [facility] [id number] 15:47:00 Test Item Value Reference Range Interpretation Comments Uric Acid (test code = 5.1 mg/dL 2.6-7.2 3084-1) JESSICA (test code = JESSICA) Non Licensed Nuclear Equipment Operator ID - DB Lab Interpretation (test Normal code = 58035-0) [facility] (LDH)2020-08-20 15:47:00 Test Item Value Reference Range Interpretation Comments LDH (test code = 2532-0) 228 U/L 125-220 H JESSICA (test code = JESSICA) Non Licensed Nuclear Equipment Operator ID - DB Lab Interpretation (test Abnormal code = 85202-6) [facility]21-[facility]-06 15:47:00 Test Item Value Reference Range Interpretation Comments Magnesium (test code = 2.2 mg/dL 1.6-2.6 95394-9) JESSICA (test code = JESSICA) Non Licensed Nuclear Equipment Operator ID - DB Lab Interpretation (test Normal code = 88639-2) [facility]21-[facility]-06 15:47:00 Test Item Value Reference Range Interpretation Comments Phosphorus (test code = 3.1 mg/dL 2.3-4.7 2777-1) JESSICA (test code = JESSICA) Non Licensed Nuclear Equipment Operator ID - DB Lab Interpretation (test Normal code = 54003-6) [facility] [id number] 15:47:00 Test Item Value Reference Range Interpretation Comments Uric Acid (test code = 5.1 mg/dL 2.6-7.2 3084-1) JESSICA (test code = JESSICA) Non Licensed Nuclear Equipment Operator ID - DB Lab Interpretation (test Normal code = 95670-7) [facility] UCLACOMPREHENSIVE METABOLIC [id number] 15:47:00 Test Item Value Reference Range Interpretation [...] S NOT APPLICABLE FOR DIALYSIS PATIEN TS. Non Licensed Nuclear Equipment Operator ID - [id number] 15:47:00 Test Item Value Reference Range Interpretation Comments MAGNESIUM (BEAKER) (test code = 2.2 mg/dL 1.6-2.6 627) Non Licensed Nuclear Equipment Operator ID - [id number] 15:47:00 Test Item Value Reference Range Interpretation Comments PHOSPHORUS (BEAKER) (test code = 3.1 mg/dL 2.3-4.7 604) Non Licensed Nuclear Equipment Operator ID - DBURIC [id number] 15:47:00 Test Item Value Reference Range Interpretation Comments URIC ACID (BEAKER) (test code = 5.1 mg/dL 2.6-7.2 773) Non Licensed Nuclear Equipment Operator ID - DBLACTATE DEHYDROGENASE (LDH)2020-08-20 15:47:00 Test Item Value Reference Range Interpretation Comments LACTATE DEHYDROGENASE (BEAKER) (test 228 U/L 125-220 H code = 635) Non Licensed Nuclear Equipment Operator ID - DBCBC W/PLT COUNT & AUTO [id number] 15:26:00 Test Item Value Reference Range Interpretation [...] (test code = 2801) AFB CULTURE + [id number] 17:40:00 Test Item Value Reference Range Interpretation Comments CULTURE (BEAKER) (test No acid-fast bacilli code = 1095) isolated in 42 days AFB SMEAR (BEAKER) No acid fast bacilli (test code = 994) seen AFB CULTURE + [id number] 16:47:00 Test Item Value Reference Range Interpretation Comments CULTURE (BEAKER) (test No acid-fast bacilli code = 1095) isolated in 42 days AFB SMEAR (BEAKER) No acid fast bacilli (test code = 994) seen FUNGUS CULTURE + [id number] 17:06:00 Test Item Value Reference Range Interpretation Comments CULTURE (BEAKER) (test No fungus isolated in code = 1095) 28 days FUNGUS SMEAR (BEAKER) No fungi seen (test code = 1406) FUNGUS CULTURE + [id number] 20:59:00 Test Item Value Reference Range Interpretation Comments CULTURE (BEAKER) (test No fungus isolated in code = 1095) 28 days FUNGUS SMEAR (BEAKER) No fungi seen (test code = 1406) POCT-GLUCOSE [id number] 17:00:00 Test Item Value Reference Range Interpretation Comments POC-GLUCOSE METER 193 mg/dL 70-110 H TESTED AT [facility] [address] (BEAKER) (test code [facility] = 1538) [place] [address] POCT-GLUCOSE [id number] 11:50:00 Test Item Value Reference Range Interpretation Comments POC-GLUCOSE METER 185 mg/dL 70-110 H TESTED AT [facility] [address] (BEAKER) (test code [facility] = 1538) [place] [address] CBC W/PLT COUNT & AUTO [id number] 09:22:00 Test Item Value Reference Range Interpretation [...] (BEAKER) (test code = 2801) BASIC METABOLIC [id number] 09:21:00 Test Item Value Reference Range Interpretation [...] NOT APPLICABLE FOR DIALYSIS PATIEN TS. C-REACTIVE [id number] 09:21:00 Test Item Value Reference Range Interpretation Comments C-REACTIVE PROTEIN (BEAKER) (test 2.31 mg/dL 0.00-0.50 H code = 676) HEPATIC FUNCTION [id number] 09:20:00 Test Item Value Reference Range Interpretation [...] code = 47 U/L 6-50 347) POCT-GLUCOSE [id number] 06:53:00 Test Item Value Reference Range Interpretation Comments POC-GLUCOSE METER 102 mg/dL 70-110 TESTED AT [facility] [address] (BEAKER) (test code [facility] = 1538) [place] [address] POCT-GLUCOSE [id number] 21:32:00 Test Item Value Reference Range Interpretation Comments POC-GLUCOSE METER 212 mg/dL 70-110 H TESTED AT [facility] [address] (BEAKER) (test code [facility] = 1538) [place] [address] POCT-GLUCOSE [id number] 16:26:00 Test Item Value Reference Range Interpretation Comments POC-GLUCOSE METER 170 mg/dL 70-110 H TESTED AT [facility] [address] (BEAKER) (test code [facility] = 1538) [place] [address] POCT-GLUCOSE [id number] 05:53:00 Test Item Value Reference Range Interpretation Comments POC-GLUCOSE METER 90 mg/dL 70-110 TESTED AT [facility] [address] (BEAKER) (test code = [facility] 1538) [place] [address] POCT-GLUCOSE [id number] 21:52:00 Test Item Value Reference Range Interpretation Comments POC-GLUCOSE METER 130 mg/dL 70-110 H TESTED AT [facility] [address] (BEAKER) (test code [facility] = 1538) [place] [address] POCT-GLUCOSE [id number] 17:16:00 Test Item Value Reference Range Interpretation Comments POC-GLUCOSE METER 177 mg/dL 70-110 H TESTED AT [facility] [address] (BEAKER) (test code [facility] [address]) [place] [address] [id number] 16:02:00 Test Item Value Reference Range Interpretation Comments POTASSIUM (BEAKER) (test code = 3.9 meq/L 3.5-5.5 379) POCT-GLUCOSE [id number] 12:10:00 Test Item Value Reference Range Interpretation Comments POC-GLUCOSE METER 176 mg/dL 70-110 H TESTED AT [facility] [address] (BEAKER) (test code [facility] = 1538) [place] [address] POCT-GLUCOSE [id number] 05:57:00 Test Item Value Reference Range Interpretation Comments POC-GLUCOSE METER 113 mg/dL 70-110 H TESTED AT [facility] [address] (BEAKER) (test code [facility] = 1538) [place] [address] POCT-GLUCOSE [id number] 21:53:00 Test Item Value Reference Range Interpretation Comments POC-GLUCOSE METER 160 mg/dL 70-110 H TESTED AT [facility] [address] (BEAKER) (test code [facility] = 1538) [place] [address] POCT-GLUCOSE [id number] 16:49:00 Test Item Value Reference Range Interpretation Comments POC-GLUCOSE METER 158 mg/dL 70-110 H TESTED AT [facility] [address] (BEAKER) (test code [facility] = 1538) [place] [address] POCT-GLUCOSE [id number] 12:14:00 Test Item Value Reference Range Interpretation Comments POC-GLUCOSE METER 162 mg/dL 70-110 H TESTED AT [facility] [address] (BEAKER) (test code [facility] = 1538) [place] [address] BASIC METABOLIC [id number] 04:57:00 Test Item Value Reference Range Interpretation [...] PATIEN TS. CBC W/PLT COUNT & AUTO [id number] 04:28:00 Test Item Value Reference Range Interpretation [...] PERCENT (BEAKER) (test code = 2801) POCT-GLUCOSE [id number] 20:44:00 Test Item Value Reference Range Interpretation Comments POC-GLUCOSE METER 168 mg/dL 70-110 H TESTED AT [facility] [address] (BEAKER) (test code [facility] = 1538) [place] [address] POCT-GLUCOSE [id number] 16:10:00 Test Item Value Reference Range Interpretation Comments POC-GLUCOSE METER 228 mg/dL 70-110 H TESTED AT [facility] [address] (BEAKER) (test code [facility] = 1538) [place] [address] POCT-GLUCOSE [id number] 13:15:00 Test Item Value Reference Range Interpretation Comments POC-GLUCOSE METER 182 mg/dL 70-110 H TESTED AT [facility] [address] (BEAKER) (test code [facility] = 1538) [place] [address] POCT-GLUCOSE [id number] 06:57:00 Test Item Value Reference Range Interpretation Comments POC-GLUCOSE METER 153 mg/dL 70-110 H TESTED AT [facility] [address] (BEAKER) (test code [facility] = 1538) [place] [address] POCT-GLUCOSE [id number] 21:27:00 Test Item Value Reference Range Interpretation Comments POC-GLUCOSE METER 146 mg/dL 70-110 H TESTED AT [facility] [address] ([facility]) (test code [facility] = 1538) [place] [address] POCT-GLUCOSE [id number] 17:17:00 Test Item Value Reference Range Interpretation Comments POC-GLUCOSE METER 134 mg/dL 70-110 H TESTED AT [facility] [address] ([facility]) (test code [facility] = 1538) [place] [address] POCT-GLUCOSE [id number] 13:49:00 Test Item Value Reference Range Interpretation Comments POC-GLUCOSE METER 177 mg/dL 70-110 H TESTED AT [facility] [address] ([facility]) (test code [facility]UCIA [facility] = 1538) [place] [address] POCT-GLUCOSE [id number] 05:34:00 Test Item Value Reference Range Interpretation Comments POC-GLUCOSE METER 118 mg/dL 70-110 H TESTED AT [facility] [address] ([facility]) (test code [facility] = 1538) [place] [address] POCT-GLUCOSE [id number] 21:14:00 Test Item Value Reference Range Interpretation Comments POC-GLUCOSE METER 149 mg/dL 70-110 H TESTED AT [facility] [address] ([facility]) (test code [facility] = 1538) [place] [address] POCT-GLUCOSE [id number] 17:44:00 Test Item Value Reference Range Interpretation Comments POC-GLUCOSE METER 132 mg/dL 70-110 H TESTED AT [facility] [address] ([facility]) (test code [facility] = 1538) [place] [address] POCT-GLUCOSE [id number] 12:21:00 Test Item Value Reference Range Interpretation Comments POC-GLUCOSE METER 168 mg/dL 70-110 H TESTED AT [facility] [address] ([facility]) (test code [facility] = 1538) [place] [address] [id number] 05:19:00 Test Item Value Reference Range Interpretation Comments PARTIAL THROMBOPLASTIN TIME 84.3 seconds 23.2-36.1 H (BEAKER) (test code = 760) POCT-GLUCOSE [id number] 20:50:00 Test Item Value Reference Range Interpretation Comments POC-GLUCOSE METER 147 mg/dL 70-110 H TESTED AT [facility] [address] (BEAKER) (test code [facility] = 1538) [place] [address] POCT-GLUCOSE [id number] 17:19:00 Test Item Value Reference Range Interpretation Comments POC-GLUCOSE METER 238 mg/dL 70-110 H TESTED AT [facility] [address] (BEAKER) (test code [facility] = 1538) [place] [address] [id number] 15:09:00 Test Item Value Reference Range Interpretation Comments PARTIAL THROMBOPLASTIN TIME 74.8 seconds 23.2-36.1 H (BEAKER) (test code = 760) POCT-GLUCOSE [id number] 11:57:00 Test Item Value Reference Range Interpretation Comments POC-GLUCOSE METER 146 mg/dL 70-110 H TESTED AT [facility] [address] (BEAKER) (test code [facility] = 1538) [place] [address] POCT-GLUCOSE [id number] 05:37:00 Test Item Value Reference Range Interpretation Comments POC-GLUCOSE METER 139 mg/dL 70-110 H TESTED AT [facility] [address] (BEAKER) (test code [facility] = 1538) [place] [address] BASIC METABOLIC [id number] 04:04:00 Test Item Value Reference Range Interpretation [...] I S NOT APPLICABLE FOR DIALYSIS PATIEN [id number] 04:02:00 Test Item Value Reference Range Interpretation Comments PARTIAL THROMBOPLASTIN TIME 76.5 seconds 23.2-36.1 H (BEAKER) (test code = 760) CBC W/PLT COUNT & AUTO [id number] 03:41:00 Test Item Value Reference Range Interpretation [...] PERCENT (BEAKER) (test code = 2801) POCT-GLUCOSE [id number] 22:12:00 Test Item Value Reference Range Interpretation Comments POC-GLUCOSE METER 247 mg/dL 70-110 H TESTED AT [facility] [address] (BEAKER) (test code [facility] = 1538) [place] [address] [id number] 21:11:00 Test Item Value Reference Range Interpretation Comments PARTIAL THROMBOPLASTIN TIME 62.4 seconds 23.2-36.1 H (BEAKER) (test code = 760) [id number] 12:45:00 Test Item Value Reference Range Interpretation Comments PARTIAL THROMBOPLASTIN TIME 101.2 seconds 23.2-36.1 H (BEAKER) (test code = 760) POCT-GLUCOSE [id number] 11:48:00 Test Item Value Reference Range Interpretation Comments POC-GLUCOSE METER 259 mg/dL 70-110 H TESTED AT [facility] [address] (BEAKER) (test code [facility] = 1538) [place] [address] POCT-GLUCOSE [id number] 05:38:00 Test Item Value Reference Range Interpretation Comments POC-GLUCOSE METER 121 mg/dL 70-110 H TESTED AT [facility] [address] (BEAKER) (test code [facility] = 1538) [place] [address] [id number] 05:33:00 Test Item Value Reference Range Interpretation Comments PARTIAL THROMBOPLASTIN TIME 108.5 seconds 23.2-36.1 H (BEAKER) (test code = 760) POCT-GLUCOSE [id number] 20:59:00 Test Item Value Reference Range Interpretation Comments POC-GLUCOSE METER 197 mg/dL 70-110 H TESTED AT [facility] [address] (BEAKER) (test code [facility] = 1538) [place] [address] POCT-GLUCOSE [id number] 16:47:00 Test Item Value Reference Range Interpretation Comments POC-GLUCOSE METER 150 mg/dL 70-110 H TESTED AT [facility] [address] (BEAKER) (test code [facility] = 1538) [place] [address] [id number] 15:21:00 Test Item Value Reference Range Interpretation Comments PARTIAL THROMBOPLASTIN TIME 79.9 seconds 23.2-36.1 H (BEAKER) (test code = 760) POCT-GLUCOSE [id number] 12:52:00 Test Item Value Reference Range Interpretation Comments POC-GLUCOSE METER 207 mg/dL 70-110 H TESTED AT [facility] [address] (BEAKER) (test code [facility] = 1538) [place] [address] [id number] 09:17:00 Test Item Value Reference Range Interpretation Comments PARTIAL THROMBOPLASTIN TIME 95.7 seconds 23.2-36.1 H (BEAKER) (test code = 760) BASIC METABOLIC [id number] 02:36:00 Test Item Value Reference Range Interpretation [...] I S NOT APPLICABLE FOR DIALYSIS PATIEN [id number] 02:26:00 Test Item Value Reference Range Interpretation Comments PARTIAL THROMBOPLASTIN TIME 104.6 seconds 23.2-36.1 H (BEAKER) (test code = 760) CBC W/PLT COUNT & AUTO [id number] 02:18:00 Test Item Value Reference Range Interpretation [...] PERCENT (BEAKER) (test code = 2801) POCT-GLUCOSE [id number] 22:17:00 Test Item Value Reference Range Interpretation Comments POC-GLUCOSE METER 211 mg/dL 70-110 H TESTED AT [facility] [address] [facility] (test code [facility] = 1538) [place] [address] [id number] 20:16:00 Test Item Value Reference Range Interpretation Comments PARTIAL THROMBOPLASTIN TIME 107.2 seconds 23.2-36.1 H (BEAKER) (test code = 760) POCT-GLUCOSE [id number] 16:24:00 Test Item Value Reference Range Interpretation Comments POC-GLUCOSE METER 167 mg/dL 70-110 H TESTED AT [facility] [address] ([facility] (test code [facility] = 1538) [place] [address] [id number] 14:17:00 Test Item Value Reference Range Interpretation Comments PARTIAL THROMBOPLASTIN TIME 96.3 seconds 23.2-36.1 H (BEAKER) (test code = 760) POCT-GLUCOSE [id number] 11:40:00 Test Item Value Reference Range Interpretation Comments POC-GLUCOSE METER 190 mg/dL 70-110 H TESTED AT [facility] [address] ([facility] (test code [facility] = 1538) [place] [address] [id number] 07:52:00 Test Item Value Reference Range Interpretation Comments PARTIAL THROMBOPLASTIN TIME 58.0 seconds 23.2-36.1 H (BEAKER) (test code = 760) BASIC METABOLIC [id number] 06:09:00 Test Item Value Reference Range Interpretation [...] S NOT APPLICABLE FOR DIALYSIS PATIJUNAID JEAN. [id number] 05:53:00 Test Item Value Reference Range Interpretation Comments PARTIAL THROMBOPLASTIN TIME 138.1 seconds 23.2-36.1 H (BEAKER) (test code = 760) CBC W/PLT COUNT & AUTO [id number] 05:45:00 Test Item Value Reference Range Interpretation [...] GRANULOCYTES-RELATIVE PERCENT (BEAKER) (test code = 2801) [id number] 23:56:00 Test Item Value Reference Range Interpretation Comments PARTIAL THROMBOPLASTIN TIME 96.6 seconds 23.2-36.1 H (BEAKER) (test code = 760) POCT-GLUCOSE [id number] 21:22:00 Test Item Value Reference Range Interpretation Comments POC-GLUCOSE METER 160 mg/dL 70-110 H TESTED AT [facility] [address] (BEAKER) (test code [facility] = 1538) [place] [address] POCT-GLUCOSE [id number] 17:27:00 Test Item Value Reference Range Interpretation Comments POC-GLUCOSE METER 151 mg/dL 70-110 H TESTED AT [facility] [address] (BEAKER) (test code [facility] = 1538) [place] [address] [id number] 16:40:00 Test Item Value Reference Range Interpretation Comments PARTIAL THROMBOPLASTIN TIME 40.0 seconds 23.2-36.1 H (BEAKER) (test code = 760) POCT-GLUCOSE [id number] 13:43:00 Test Item Value Reference Range Interpretation Comments POC-GLUCOSE METER 164 mg/dL 70-110 H TESTED AT [facility] [address] (BEAKER) (test code [facility] = 1538) [place] [address] [id number] 13:34:00 Test Item Value Reference Range Interpretation Comments PARTIAL THROMBOPLASTIN TIME 141.6 seconds 23.2-36.1 H (BEAKER) (test code = 760) OCCULT BLOOD, [id number] 13:20:00 Test Item Value Reference Range Interpretation Comments FECAL OCCULT BLOOD (BEAKER) (test Negative Negative code = 618) BASIC METABOLIC [id number] 12:13:00 Test Item Value Reference Range Interpretation [...] APPLICABLE FOR DIALYSIS PATIEN TS. HEPATIC FUNCTION [id number] 12:13:00 Test Item Value Reference Range Interpretation [...] 6-50 347) CBC W/PLT COUNT & AUTO [id number] 11:47:00 Test Item Value Reference Range Interpretation [...] GRANULOCYTES-RELATIVE PERCENT (BEAKER) (test code = 2801) [id number] 06:33:00 Test Item Value Reference Range Interpretation Comments PARTIAL THROMBOPLASTIN TIME 102.3 seconds 23.2-36.1 H (BEAKER) (test code = 760) POCT-GLUCOSE [id number] 05:47:00 Test Item Value Reference Range Interpretation Comments POC-GLUCOSE METER 151 mg/dL 70-110 H TESTED AT [facility] [address] (BEAKER) (test code [facility] = 1538) [place] [address] BASIC METABOLIC [id number] 01:16:00 Test Item Value Reference Range Interpretation [...] S NOT APPLICABLE FOR DIALYSIS PATIEN TS. [id number] 01:06:00 Test Item Value Reference Range Interpretation Comments PARTIAL THROMBOPLASTIN TIME 46.8 seconds 23.2-36.1 H (BEAKER) (test code = 760) [id number] 23:18:00 Test Item Value Reference Range Interpretation Comments PARTIAL THROMBOPLASTIN TIME 177.9 seconds 23.2-36.1 HH (BEAKER) (test code = 760) POCT-GLUCOSE [id number] 22:05:00 Test Item Value Reference Range Interpretation Comments POC-GLUCOSE METER 204 mg/dL 70-110 H TESTED AT [facility] [address] [facility] (test code [facility] = 1538) [place] [address] [id number] 16:35:00 Test Item Value Reference Range Interpretation Comments PARTIAL THROMBOPLASTIN TIME 47.9 seconds 23.2-36.1 H (BEAKER) (test code = 760) POCT-GLUCOSE [id number] 16:33:00 Test Item Value Reference Range Interpretation Comments POC-GLUCOSE METER 167 mg/dL 70-110 H TESTED AT [facility] [address] ([facility]) (test code [facility] = 1538) [place] [address] [id number] 15:11:00 Test Item Value Reference Range Interpretation Comments PARTIAL THROMBOPLASTIN TIME 198.7 seconds 23.2-36.1 HH (BEAKER) (test code = 760) POCT-GLUCOSE [id number] 12:08:00 Test Item Value Reference Range Interpretation Comments POC-GLUCOSE METER 166 mg/dL 70-110 H TESTED AT [facility] [address] [facility] (test code [facility] = 1538) [place] [address] [id number] 07:27:00 Test Item Value Reference Range Interpretation Comments PARTIAL THROMBOPLASTIN TIME 65.6 seconds 23.2-36.1 H (BEAKER) (test code = 760) [id number] 05:59:00 Test Item Value Reference Range Interpretation Comments PARTIAL THROMBOPLASTIN TIME 156.1 seconds 23.2-36.1 HH (BEAKER) (test code = 760) BASIC METABOLIC [id number] 05:54:00 Test Item Value Reference Range Interpretation [...] NOT APPLICABLE FOR DIALYSIS PATIEN TS. POCT-GLUCOSE [id number] 05:45:00 Test Item Value Reference Range Interpretation Comments POC-GLUCOSE METER 145 mg/dL 70-110 H TESTED AT [facility] [address] (BEAKER) (test code [facility] = 1538) [place] [address] CBC W/PLT COUNT & AUTO [id number] 05:36:00 Test Item Value Reference Range Interpretation [...] PERCENT (BEAKER) (test code = 2801) POCT-GLUCOSE [id number] 20:29:00 Test Item Value Reference Range Interpretation Comments POC-GLUCOSE METER 128 mg/dL 70-110 H TESTED AT [facility] [address] (BEAKER) (test code [facility] = 1538) [place] [address] POCT-GLUCOSE [id number] 16:58:00 Test Item Value Reference Range Interpretation Comments POC-GLUCOSE METER 160 mg/dL 70-110 H TESTED AT [facility] [address] (BEAKER) (test code [facility] = 1538) [place] [address] POCT-GLUCOSE [id number] 11:58:00 Test Item Value Reference Range Interpretation Comments POC-GLUCOSE METER 163 mg/dL 70-110 H TESTED AT [facility] [address] ([facility] (test code [facility] = 1538) [place] [address] [id number] 05:25:00 Test Item Value Reference Range Interpretation Comments PARTIAL THROMBOPLASTIN TIME 79.6 seconds 23.2-36.1 H (BEAKER) (test code = 760) CBC W/PLT COUNT & AUTO [id number] 05:18:00 Test Item Value Reference Range Interpretation [...] GRANULOCYTES-RELATIVE PERCENT (BEAKER) (test code = 2801) [id number] 21:47:00 Test Item Value Reference Range Interpretation Comments PARTIAL THROMBOPLASTIN TIME 85.4 seconds 23.2-36.1 H (BEAKER) (test code = 760) POCT-GLUCOSE [id number] 16:24:00 Test Item Value Reference Range Interpretation Comments POC-GLUCOSE METER 189 mg/dL 70-110 H TESTED AT [facility] [address] (BEAKER) (test code [facility] = 1538) [place] [address] [id number] 13:02:00 Test Item Value Reference Range Interpretation Comments PARTIAL THROMBOPLASTIN TIME 51.8 seconds 23.2-36.1 H (BEAKER) (test code = 760) POCT-GLUCOSE [id number] 11:41:00 Test Item Value Reference Range Interpretation Comments POC-GLUCOSE METER 169 mg/dL 70-110 H TESTED AT [facility] [address] (BEAKER) (test code [facility] = 1538) [place] [address] VITAMIN D, [id number] 08:15:00 Test Item Value Reference Range Interpretation Comments VITAMIN D 25-OH (BEAKER) (test code 5.4 ng/mL 6.6-49.9 L = 2764) Effective 12/25/2016: Reference Range ChangeNew: 6.6-49.9 ng/mL Previous: 13.0-47.8 ng/mLRecommended Vitamin D Target Range: 30.0-40.0 ng/mLPOCT-GLUCOSE [id number] 06:20:00 Test Item Value Reference Range Interpretation Comments POC-GLUCOSE METER 158 mg/dL 70-110 H TESTED AT [facility] [address] ([facility] (test code [facility] = 1538) [place] [address] HEPATIC FUNCTION [id number] 05:45:00 Test Item Value Reference Range Interpretation Comments TOTAL PROTEIN (BEAKER) 6.5 gm/dL 6.0-8.5 Speci men markedly (test code = 770) hemolyzed ALBUMIN (BEAKER) (test 1.8 g/dL 3.5-5.0 L Speci men markedly code = 1145) hemolyzed BILIRUBIN TOTAL 1.2 mg/dL 0.1-1.3 Specimen michael keмарияy (BEAKER) (test code = hemoly zed 377) BILIRUBIN DIRECT 0.1 mg/dL 0.0-0.5 Specimen abeba browning (BEAKER) (test code = hemoly zed 706) ALKALINE PHOSPHATASE 142 U/L 30-115 H (BEAKER) (test code = 346) AST (SGOT) (BEAKER) 49 U/L 5-40 H Specimen markedly (test code = 353) hemolyzed ALT (SGPT) (BEAKER) 28 U/L 6-50 Specimen markedly (test code = 347) hemolyzed [id number] 05:30:00 Test Item Value Reference Range Interpretation Comments PARTIAL THROMBOPLASTIN TIME 63.3 seconds 23.2-36.1 H (AKER) (test code = 760) Prior to initiating heparinCBC W/PLT COUNT & AUTO [id number] 05:23:00 Test Item Value Reference Range Interpretation Comments WHITE BLOOD CELL COUNT 27.7 K/ L 4.0-10.0 H (AKER) (test code = 775) RED BLOOD CELL [...] GRANULOCYTES-RELATIVE PERCENT (BEAKER) (test code = 2801) [id number] 00:59:00 Test Item Value Reference Range Interpretation Comments PARTIAL THROMBOPLASTIN TIME 62.3 seconds 23.2-36.1 H (BEAKER) (test code = 760) POCT-GLUCOSE [id number] 21:34:00 Test Item Value Reference Range Interpretation Comments POC-GLUCOSE METER 196 mg/dL 70-110 H TESTED AT [facility] [address] (BEAKER) (test code [facility] = 1538) [place] [address] [id number] 18:14:00 Test Item Value Reference Range Interpretation Comments PARTIAL THROMBOPLASTIN TIME 82.3 seconds 23.2-36.1 H (BEAKER) (test code = 760) POCT-GLUCOSE [id number] 17:01:00 Test Item Value Reference Range Interpretation Comments POC-GLUCOSE METER 192 mg/dL 70-110 H TESTED AT [facility] [address] (BEAKER) (test code [facility] = 1538) [place] [address] POCT-GLUCOSE [id number] 13:29:00 Test Item Value Reference Range Interpretation Comments POC-GLUCOSE METER 207 mg/dL 70-110 H TESTED AT [facility] [address] (BEAKER) (test code [facility] = 1538) [place] [address] [id number] 12:48:00 Test Item Value Reference Range Interpretation Comments PARTIAL THROMBOPLASTIN TIME 63.3 seconds 23.2-36.1 H (BEAKER) (test code = 760) CBC W/PLT COUNT & AUTO [id number] 12:25:00 Test Item Value Reference Range Interpretation [...] PERCENT (BEAKER) (test code = 2801) POCT-GLUCOSE [id number] 06:40:00 Test Item Value Reference Range Interpretation Comments POC-GLUCOSE METER 166 mg/dL 70-110 H TESTED AT [facility] [address] (BEAKER) (test code [facility] = 1538) [place] [address] BUN AND [id number] 06:07:00 Test Item Value Reference Range Interpretation [...] 12 noon Amikacin Blood level draw. Thank [id number] 05:48:00 Test Item Value Reference Range Interpretation Comments PARTIAL THROMBOPLASTIN TIME 60.0 seconds 23.2-36.1 H (BEAKER) (test code = 760) ANTI-NUCLEAR ANTIBODY (TAMMI)2017-11-20 00:24:00 Test Item Value Reference Range Interpretation Comments ANTI-NUCLEAR ANTIBODY (TAMMI) (BEAKER) Negative Negative (test code = 418) Test performed by IFA method.Test performed by IFA method.[id number] 23:01:00 Test Item Value Reference Range Interpretation Comments PARTIAL THROMBOPLASTIN TIME 58.3 seconds 23.2-36.1 H (BEAKER) (test code = 760) POCT-GLUCOSE [id number] 21:22:00 Test Item Value Reference Range Interpretation Comments POC-GLUCOSE METER 171 mg/dL 70-110 H TESTED AT [facility] [address] ([facility]) (test code [facility] = 1538) [place] [address] POCT-GLUCOSE [id number] 16:54:00 Test Item Value Reference Range Interpretation Comments POC-GLUCOSE METER 135 mg/dL 70-110 H TESTED AT [facility] [address] ([facility]) (test code [facility] = 1538) [place] [address] PERIPHERAL BLOOD SMEAR - PATHOLOGIST [id number] 15:35:00 Test Item Value Reference Range Interpretation Comments PERIPHERAL SMR REVIEW Neutrophilic (BEAKER) (test code = leukocytosis with 2640) increased band forms and unremarkable WBC morphology. Normocytic anemia with unremarkable RBCs. Platelets unremarkable. No dysmorphic or blast forms seen. [id number] Nazario Becker M.D. (BEAKER) (test code = (electronic signature) 2857) (MANUAL DIFFERENTIAL)2017-11-19 15:31:00 Test Item Value Reference [...] (BEAKER) (test code = 1+ few 480) [id number] 15:21:00 Test Item Value Reference Range Interpretation Comments PARTIAL THROMBOPLASTIN TIME 39.3 seconds 23.2-36.1 H (BEAKER) (test code = 760) POCT-GLUCOSE [id number] 13:08:00 Test Item Value Reference Range Interpretation Comments POC-GLUCOSE METER 140 mg/dL 70-110 H TESTED AT [facility] [address] (BEAKER) (test code [facility] = 1538) [place] [address] CBC W/PLT COUNT & AUTO [id number] 09:33:00 Test Item Value Reference Range Interpretation [...] (BEAKER) (test code = 413) BUN AND [id number] 08:45:00 Test Item Value Reference Range Interpretation [...] 12 noon Amikacin Blood level draw. Thank [id number] 08:27:00 Test Item Value Reference Range Interpretation Comments PARTIAL THROMBOPLASTIN TIME 29.5 seconds 23.2-36.1 (BEAKER) (test code = 760) POCT-GLUCOSE [id number] 04:48:00 Test Item Value Reference Range Interpretation Comments POC-GLUCOSE METER 142 mg/dL 70-110 H TESTED AT [facility] [address] ([facility]) (test code [facility] = 1538) [place] [address] RHEUMATOID FACTOR AB, REFLEX TO [id number] 01:10:00 Test Item Value Reference Range Interpretation Comments RHEUMATOID FACTOR (BEAKER) (test Negative code = 573) [id number] 00:56:00 Test Item Value Reference Range Interpretation [...] patients with mechanical heart valves.VENOUS DOPPLER LEGS, [id number] 22:05:00Reason for exam:->leukocytosis persistentFINAL REPORT CLINICAL HISTORY: [...] MDReport Verified Date/Time: 11/18/2017 22:05:25 Reading Location: [address] Reading Room POCT-GLUCOSE [id number] 20:56:00 Test Item Value Reference Range Interpretation Comments POC-GLUCOSE METER 111 mg/dL 70-110 H TESTED AT [facility] [address] ([place]) (test code [facility] = 1538) [place] [address] AMIKACIN LEVEL, [id number] 17:26:00 Test Item Value Reference Range Interpretation Comments AMIKACIN, TROUGH (HARDIK) (test 10.3 ug/mL 4.0-8.0 HH code = 1830) Therapeutic Range (ug/mL)Peak: 25.0-35.0Trough: 4.0-8.0 Toxic: >35.0VENOUS DOPPLER ARMS, [id number] 16:59:00Reason for exam:->swelling right handAddendum BeginsREPORT STATUS:A Addendum:A left-sided PICC is visualized. End of addendum. Signed: Dangelo Proctoreport Verified Date/Time: 11/18/2017 16:59:45 Reading Location: [facility] Radiology Reading RoomAddendum EndsFINAL REPORT Bilateral [...] Proctoreport Verified Date/Time: 11/18/2017 15:36:41 [facility] POCT-GLUCOSE [id number] 16:58:00 Test Item Value Reference Range Interpretation Comments POC-GLUCOSE METER 100 mg/dL 70-110 TESTED AT [facility] [address] ([facility]) (test code Sweetie High [facility] = 1538) [place] [address] POCT-GLUCOSE [id number] 11:30:00 Test Item Value Reference Range Interpretation Comments POC-GLUCOSE METER 119 mg/dL 70-110 H TESTED AT [facility] [address] ([facility]) (test code [employer]ie [employer] [facility] = 1538) [place] [address] HEPATITIS B SURFACE [id number] 11:18:00 Test Item Value Reference Range Interpretation Comments HEPATITIS B SURFACE ANTIBODY 436.5 mIU/mL <8.0 H (BEAKER) (test code = 647) HEPATITIS C [id number] 11:18:00 Test Item Value Reference Range Interpretation Comments HEPATITIS C ANTIBODY (BEAKER) Nonreactive Nonreactive (test code = 367) AMIKACIN LEVEL, [id number] 11:03:00 Test Item Value Reference Range Interpretation Comments AMIKACIN, PEAK (BEAKER) (test code 26.0 ug/mL 25.0-35.0 = 1831) Therapeutic Range (ug/mL)Peak: 25.0-35.0Trough: 4.0-8.0 Toxic: >35.0 SURGICALLY OBTAINED CULTURE + GRAM [id number] 08:25:00 Test Item Value Reference Interpretation Comments [...] No organisms seen (BEAKER) (test code = 958060) ANAEROBIC [id number] 07:53:00 Test Item Value Reference Range Interpretation Comments CULTURE (BEAKER) (test No anaerobes isolated code = 1095) GRAM STAIN RESULT 1+ WBCs (BEAKER) (test code = 1123) GRAM STAIN RESULT No organisms seen (BEAKER) (test code = 78768) POCT-GLUCOSE [id number] 06:37:00 Test Item Value Reference Range Interpretation Comments POC-GLUCOSE METER 135 mg/dL 70-110 H TESTED AT [facility] [address] (BEAKER) (test code [facility] = 1538) [place] [address] HIV-1 ANTIGEN WITH HIV-1/2 [id number] 05:51:00 Test Item Value Reference Range Interpretation Comments HIV-1 ANTIGEN WITH HIV 1\\T\\2 Nonreactive Nonreactive ANTIBODY (2) (BEAKER) (test code = 2586) HEPATITIS B SURFACE [id number] 05:46:00 Test Item Value Reference Range Interpretation Comments HEPATITIS B SURFACE ANTIGEN (2) Nonreactive Nonreactive (BEAKER) (test code = 2585) CBC W/PLT COUNT & AUTO [id number] 05:11:00 Test Item Value Reference Range Interpretation [...] code = 2801) Smear reviewed. Results confirmed.POCT-GLUCOSE [id number] 23:01:00 Test Item Value Reference Range Interpretation Comments POC-GLUCOSE METER 111 mg/dL 70-110 H TESTED AT [facility] [address] (BEAKER) (test code [facility] = 1538) [place] [address] POCT-GLUCOSE [id number] 17:15:00 Test Item Value Reference Range Interpretation Comments POC-GLUCOSE METER 100 mg/dL 70-110 TESTED AT [facility] [address] ([facility]) (test code [facility] = 1538) [place] [address] C-REACTIVE [id number] 14:34:00 Test Item Value Reference Range Interpretation Comments C-REACTIVE PROTEIN (BEAKER) (test 35.06 mg/dL 0.00-0.50 H code = 676) POCT-GLUCOSE [id number] 12:50:00 Test Item Value Reference Range Interpretation Comments POC-GLUCOSE METER 221 mg/dL 70-110 H TESTED AT [facility] [address] (BEAKER) (test code [facility] = 1538) [place] [address] CBC W/PLT COUNT & AUTO [id number] 10:56:00 Test Item Value Reference Range Interpretation [...] PERCENT (BEAKER) (test code = 2801) POCT-GLUCOSE [id number] 10:03:00 Test Item Value Reference Range Interpretation Comments POC-GLUCOSE METER 104 mg/dL 70-110 TESTED AT [facility] [address] (BEAKER) (test code [facility] = 1538) [place] [address] BASIC METABOLIC [id number] 04:51:00 Test Item Value Reference Range Interpretation [...] NOT APPLICABLE FOR DIALYSIS PATIEN TS. POCT-GLUCOSE [id number] 20:41:00 Test Item Value Reference Range Interpretation Comments POC-GLUCOSE METER 127 mg/dL 70-110 H TESTED AT [facility] [address] ([facility]) (test code [employer] [facility] = 1538) [place] [address] POCT-GLUCOSE [id number] 17:03:00 Test Item Value Reference Range Interpretation Comments POC-GLUCOSE METER 145 mg/dL 70-110 H TESTED AT [facility] [address] ([facility]) (test code [facility] = 1538) [place] [address] [id number] 12:39:00 Test Item Value Reference Range Interpretation Comments PROCALCITONIN (BEAKER) (test code 1.27 ng/mL <0.05 H = 3036) SEPSIS RISK (ng/mL)Low: 0.05-0.50Intermediate: 0.51-2.00High: >=2.01POCT-GLUCOSE [id number] 11:58:00 Test Item Value Reference Range Interpretation Comments POC-GLUCOSE METER 120 mg/dL 70-110 H TESTED AT [facility] [address] ([facility]) (test code [employer] [facility] = 1538) [place] [address] CBC W/PLT COUNT & AUTO [id number] 09:50:00 Test Item Value Reference Range Interpretation [...] PERCENT (BEAKER) (test code = 2801) POCT-GLUCOSE [id number] 06:32:00 Test Item Value Reference Range Interpretation Comments POC-GLUCOSE METER 124 mg/dL 70-110 H TESTED AT [facility] [address] (BEAKER) (test code [facility] = 1538) [place] [address] BASIC METABOLIC [id number] 06:27:00 Test Item Value Reference Range Interpretation [...] APPLICABLE FOR DIALYSIS PATIEN TS. BUN AND [id number] 06:26:00 Test Item Value Reference Range Interpretation [...] APPLICABLE FOR DIALYSIS PATIEN TS. HEMOGLOBIN AND [id number] 06:03:00 Test Item Value Reference Range Interpretation Comments HEMOGLOBIN (BEAKER) (test code = 8.6 GM/DL 12.0-15.5 L 410) HEMATOCRIT (BEAKER) (test code = 25.9 % 36.0-46.0 L 411) CT, CHEST, WITHOUT [id number] 22:51:00FINAL REPORT CLINICAL HISTORY: Leukocytosis FINDINGS: Multiple [...] MDReport Verified Date/Time: 11/15/2017 22:51:35 Reading Location: [address] [place], [id number] 22:51:00FINAL REPORT CLINICAL HISTORY: Leukocytosis FINDINGS: Multiple [...] MDReport Verified Date/Time: 11/15/2017 22:51:35 Reading Location: [address] Reading Room POCT-GLUCOSE [id number] 21:14:00 Test Item Value Reference Range Interpretation Comments POC-GLUCOSE METER 128 mg/dL 70-110 H TESTED AT [address]) (test code [facility] = 1538) [place] [address] POCT-GLUCOSE [id number] 17:10:00 Test Item Value Reference Range Interpretation Comments POC-GLUCOSE METER 109 mg/dL 70-110 TESTED AT [facility] [address] ([facility]) (test code [facility] = 1538) [place] [address] POCT-GLUCOSE [id number] 12:15:00 Test Item Value Reference Range Interpretation Comments POC-GLUCOSE METER 116 mg/dL 70-110 H TESTED AT [facility] [address] ([facility]) (test code [facility] = 1538) [place] [address] SPIN/CONCENTRATION [id number] 10:39:00 Test Item Value Reference Range Interpretation Comments CONCENTRATION CHARGED (BEAKER) (test Done code = 2657) CBC W/PLT COUNT & AUTO [id number] 09:22:00 Test Item Value Reference Range Interpretation [...] (test code = 2801) TYPE AND SCREEN, [id number] 08:18:00 Test Item Value Reference Range Interpretation Comments ABO/RH AUTOMATED (BEAKER) (test B POSITIVE code = 2260) AB SCREEN (BEAKER) (test code = NEGATIVE 923) ANAEROBIC [id number] 07:55:00 Test Item Value Reference Range Interpretation Comments CULTURE (BEAKER) (test No anaerobes isolated code = 1095) BASIC METABOLIC [id number] 05:40:00 Test Item Value Reference Range Interpretation [...] APPLICABLE FOR DIALYSIS PATIEN TS. BUN AND [id number] 05:37:00 Test Item Value Reference Range Interpretation [...] APPLICABLE FOR DIALYSIS PATIEN TS. VANCOMYCIN LEVEL, [id number] 05:36:00 Test Item Value Reference Range Interpretation Comments VANCOMYCIN TROUGH ([facility]) (test 17.5 ug/mL 10.0-20.0 code = 522) HEMOGLOBIN AND [id number] 05:23:00 Test Item Value Reference Range Interpretation Comments HEMOGLOBIN (BEAKER) (test code = 6.4 GM/DL 12.0-15.5 L 410) HEMATOCRIT (BEAKER) (test code = 19.3 % 36.0-46.0 LL 411) POCT-GLUCOSE [id number] 16:12:00 Test Item Value Reference Range Interpretation Comments POC-GLUCOSE METER 129 mg/dL 70-110 H TESTED AT [facility] [address] ([facility]) (test code [facility] = 1538) [place] [address] POCT-GLUCOSE [id number] 12:07:00 Test Item Value Reference Range Interpretation Comments POC-GLUCOSE METER 114 mg/dL 70-110 H TESTED AT [facility] [address] ([facility]) (test code [employer] [facility] = 1538) [place] [address] POCT-GLUCOSE [id number] 10:00:00 Test Item Value Reference Range Interpretation Comments POC-GLUCOSE METER 97 mg/dL 70-110 TESTED AT [facility] [address] ([facility]) (test [facility] = [facility] 1538[facility] [place] [address] SURGICALLY OBTAINED CULTURE + GRAM [id number] 09:36:00 Test Item Value Reference Range Interpretation Comments CULTURE (BEAKER) (test code No growth = 1095) GRAM STAIN RESULT (BEAKER) <1+ WBCs (test code = 1123) GRAM STAIN RESULT (BEAKER) No organisms seen (test code = 43626) POCT-GLUCOSE [id number] 06:06:00 Test Item Value Reference Range Interpretation Comments POC-GLUCOSE METER 105 mg/dL 70-110 TESTED AT [facility] [address] (BEAKER) (test code [facility] = 1538) [place] [address] BASIC METABOLIC [id number] 05:55:00 Test Item Value Reference Range Interpretation [...] PATIEN TS. CBC W/PLT COUNT & AUTO [id number] 05:35:00 Test Item Value Reference Range Interpretation [...] PERCENT (BEAKER) (test code = 2801) POCT-GLUCOSE [id number] 21:11:00 Test Item Value Reference Range Interpretation Comments POC-GLUCOSE METER 94 mg/dL 70-110 TESTED AT [facility] [address] (BEAKER) (test code = [facility] 1538) [place] [address] POCT-GLUCOSE [id number] 16:51:00 Test Item Value Reference Range Interpretation Comments POC-GLUCOSE METER 121 mg/dL 70-110 H TESTED AT [facility] [address] (BEAKER) (test code [facility] = 1538) [place] [address] POCT-GLUCOSE [id number] 15:10:00 Test Item Value Reference Range Interpretation Comments POC-GLUCOSE METER 97 mg/dL 70-110 TESTED AT [facility] [address] (BEAKER) (test code = [facility] 1538) [place] [address] [id number] 10:17:00 Test Item Value Reference Range Interpretation Comments PROCALCITONIN (BEAKER) (test code 1.41 ng/mL <0.05 H = 3036) SEPSIS RISK (ng/mL)Low: 0.05-0.50Intermediate: 0.51-2.00High: >=2.01HEPATIC FUNCTION [id number] 09:52:00 Test Item Value Reference Range Interpretation [...] code = 12 U/L 6-50 347) POCT-GLUCOSE [id number] 05:57:00 Test Item Value Reference Range Interpretation Comments POC-GLUCOSE METER 87 mg/dL 70-110 TESTED AT [facility] [address] (BEAKER) (test code = [facility] [address]) [place] [address] BASIC METABOLIC [id number] 05:34:00 Test Item Value Reference Range Interpretation [...] PATIEN TS. CBC W/PLT COUNT & AUTO [id number] 05:33:00 Test Item Value Reference Range Interpretation [...] (BEAKER) (test code = 2801) BUN AND [id number] 05:32:00 Test Item Value Reference Range Interpretation Comments BLOOD UREA NITROGEN 21 mg/dL 10-26 (BEAKER) (test code = 354) CREATININE (BEAKER) 0.79 mg/dL 0.50-1.20 (test code = 358) EGFR (BEAKER) (test 91 mL/min/1.73 ESTIMA YUMIKO GFR IS code = 1092) sq m NOT ACCURATE CREATININE CLEARANCE IN PREDICTING GLOMERULAR FILTRATION RATE . ESTIMATED GFR I S NOT APPLICABLE FOR DIALYSIS PATIEN TS. BLOOD [id number] 04:00:00 Test Item Value Reference Range Interpretation Comments CULTURE (BEAKER) (test No growth in 5 days code = 1095) BLOOD [id number] 01:00:00 Test Item Value Reference Range Interpretation Comments CULTURE (BEAKER) (test No growth in 5 days code = 1095) POCT-GLUCOSE [id number] 21:25:00 Test Item Value Reference Range Interpretation Comments POC-GLUCOSE METER 135 mg/dL 70-110 H TESTED AT [facility] [address] (BEAKER) (test code [facility] = [address]) [place] [address] ANG, NON-TUNNELED CATH/PICC >5 Y.O.2017-11-12 17:59:00Reason for [...] MDReport Verified Date/Time: 11/12/2017 17:59:19 Reading Location: [facility] Radiology Reading Room POCT-GLUCOSE [id number] 16:37:00 Test Item Value Reference Range Interpretation Comments POC-GLUCOSE METER 98 mg/dL 70-110 TESTED AT [facility] [address] ([facility]) (test code = [facility] 1538) [place] [address] PERIPHERAL BLOOD SMEAR - PATH REVIEW LAB [id number] 08:14:00 Test Item Value Reference Range Interpretation Comments PERIPHERAL SMR REVIEW Neutrophilic ([facility]) (test code = leukocytosis and 2640) microcytic anemia. No blast forms seen. [id number] Nazario Becker M.D. ([facility]) (test code = (electronic signature) 9193) (MANUAL DIFFERENTIAL)2017-11-12 08:12:00 Test Item Value Reference [...] few 963) BODY FLUID CULTURE + GRAM [id number] 08:10:00 Test Item Value Reference Range Interpretation Comments CULTURE (BEAKER) (test No growth code = 1095) GRAM STAIN RESULT 3+ White blood cells (BEAKER) (test code = seen 1123) GRAM STAIN RESULT No organisms seen (BEAKER) (test code = 17285) POCT-GLUCOSE [id number] 06:18:00 Test Item Value Reference Range Interpretation Comments POC-GLUCOSE METER 113 mg/dL 70-110 H TESTED AT [facility] [address] (BEAKER) (test code [facility] = 1538) [place] [address] CBC W/PLT COUNT & AUTO [id number] 04:40:00 Test Item Value Reference Range Interpretation [...] (BEAKER) (test code = 2801) BASIC METABOLIC [id number] 03:56:00 Test Item Value Reference Range Interpretation [...] APPLICABLE FOR DIALYSIS PATIEN TS. BUN AND [id number] 03:55:00 Test Item Value Reference Range Interpretation Comments BLOOD UREA NITROGEN 19 mg/dL 10-26 (BEAKER) (test code = 354) CREATININE (BEAKER) 0.81 mg/dL 0.50-1.20 (test code = 358) EGFR (BEAKER) (test 88 mL/min/1.73 ESTIMA YUMIKO GFR IS code = 1092) sq m NOT ACCURATE CREATININE CLEARANCE IN PREDICTING GLOMERULAR FILTRATION RATE . ESTIMATED GFR I S NOT APPLICABLE FOR DIALYSIS PATIEN TS. POCT-GLUCOSE [id number] 20:51:00 Test Item Value Reference Range Interpretation Comments POC-GLUCOSE METER 151 mg/dL 70-110 H TESTED AT [facility] [address] (BEAKER) (test code [facility] = 1538) [place] [address] POCT-GLUCOSE [id number] 17:20:00 Test Item Value Reference Range Interpretation Comments POC-GLUCOSE METER 101 mg/dL 70-110 TESTED AT [facility] [address] (BEAKER) (test code [facility] = 1538) [place] [address] SPIN/CONCENTRATION [id number] 15:42:00 Test Item Value Reference Range Interpretation Comments CONCENTRATION CHARGED (BEAKER) (test Done code = 2657) POCT-GLUCOSE [id number] 11:34:00 Test Item Value Reference Range Interpretation Comments POC-GLUCOSE METER 109 mg/dL 70-110 TESTED AT [facility] [address] (BEAKER) (test code [facility] = 1538) [place] [address] VANCOMYCIN LEVEL, [id number] 09:14:00 Test Item Value Reference Range Interpretation Comments VANCOMYCIN TROUGH (BEAKER) (test 10.6 ug/mL 10.0-20.0 code = 522) BASIC METABOLIC [id number] 05:59:00 Test Item Value Reference Range Interpretation [...] APPLICABLE FOR DIALYSIS PATIEN TS. BUN AND [id number] 05:58:00 Test Item Value Reference Range Interpretation Comments BLOOD UREA NITROGEN 17 mg/dL 10-26 (BEAKER) (test code = 354) CREATININE (BEAKER) 0.80 mg/dL 0.50-1.20 (test code = 358) EGFR (BEAKER) (test 90 mL/min/1.73 ESTIMA YUMIKO GFR IS code = 1092) sq m NOT ACCURATE CREATININE CLEARANCE IN PREDICTING GLOMERULAR FILTRATION RATE . ESTIMATED GFR I S NOT APPLICABLE FOR DIALYSIS PATIEN TS. POCT-GLUCOSE [id number] 05:49:00 Test Item Value Reference Range Interpretation Comments POC-GLUCOSE METER 121 mg/dL 70-110 H TESTED AT [facility] [address] (BEAKER) (test code [facility] = 1538) [place] [address] CBC W/PLT COUNT & AUTO [id number] 05:43:00 Test Item Value Reference Range Interpretation [...] PERCENT (BEAKER) (test code = 2801) POCT-GLUCOSE [id number] 00:07:00 Test Item Value Reference Range Interpretation Comments POC-GLUCOSE METER 150 mg/dL 70-110 H TESTED AT [facility] [address] [facility] (test code [facility] = 1538) [place] [address] RAD, HIP, 1 VIEW, [id number] 23:51:00Reason for exam:->postopFINAL REPORT Right hip. HISTORY: Postoperative. COMPARISON STUDY: October 29, 2017. FINDINGS: A single frontal view of the right hip demonstrates a hemiarthroplasty in place. No cement is identified. There is no evidence of fracture or malalignment on this single projection. Signed: Alexandrea Martines MDReport Verified Date/Time: 11/10/2017 23:51:24 Reading Location: [facility] B1 C013X Ortho Consult Reading Room RAD, PELVIS, 1 OR 2 [id number] 23:22:00Reason for exam:->Hip ArthroplastyReason for exam:->X-Table Lateral during OR. Sterile FieldFINAL REPORT Pelvis. HISTORY: Hip arthroplasty. COMPARISON STUDY: CT scan dated November 07, 2017. FINDINGS: Two views of the pelvis are suboptimal in appearance. A right hemiarthroplasty seen in place with no obvious fracture or malalignment on the provided views. Assessment for fractures is limited. Signed: Alexandrea Martines MDReport Verified Date/Time: 11/10/2017 23:22:52 Reading Location: [facility] C013X Ortho Consult Reading Room POCT-GLUCOSE [id number] 22:54:00 Test Item Value Reference Range Interpretation Comments POC-GLUCOSE METER 140 mg/dL 70-110 H TESTED AT [facility] [address] (BEAKER) (test code [facility] = 1538) [place] [address] POCT-GLUCOSE [id number] 16:57:00 Test Item Value Reference Range Interpretation Comments POC-GLUCOSE METER 98 mg/dL 70-110 TESTED AT [facility] [address] (BEAKER) (test code = [facility] 1538) [place] [address] POCT-GLUCOSE [id number] 12:41:00 Test Item Value Reference Range Interpretation Comments POC-GLUCOSE METER 111 mg/dL 70-110 H TESTED AT [facility] [address] (BEAKER) (test code [facility] = 1538) [place] [address] (MANUAL DIFFERENTIAL)2017-11-10 07:35:00 Test Item Value Reference [...] = 762) CBC W/PLT COUNT & AUTO [id number] 07:32:00 Test Item Value Reference Range Interpretation [...] 0-0 CELLS (BEAKER) (test code = 413) [id number] 07:25:00 Test Item Value Reference Range Interpretation Comments PHOSPHORUS (BEAKER) (test code = 3.5 mg/dL 2.5-4.5 604) [id number] 07:25:00 Test Item Value Reference Range Interpretation Comments MAGNESIUM (BEAKER) (test code = 1.7 mg/dL 1.5-3.0 627) BASIC METABOLIC [id number] 07:25:00 Test Item Value Reference Range Interpretation [...] NOT APPLICABLE FOR DIALYSIS PATIEN TS. POCT-GLUCOSE [id number] 06:45:00 Test Item Value Reference Range Interpretation Comments POC-GLUCOSE METER 121 mg/dL 70-110 H TESTED AT [facility] [address] (BEAKER) (test code [employer] [facility] = 1538) [place] [address] POCT-GLUCOSE [id number] 22:14:00 Test Item Value Reference Range Interpretation Comments POC-GLUCOSE METER 124 mg/dL 70-110 H TESTED AT [facility] [address] (BEAKER) (test code [employer] [facility] = 1538) [place] [address] VANCOMYCIN LEVEL, [id number] 21:02:00 Test Item Value Reference Range Interpretation Comments VANCOMYCIN TROUGH (BEAKER) (test 9.6 ug/mL 10.0-20.0 L code = 522) POCT-GLUCOSE [id number] 17:22:00 Test Item Value Reference Range Interpretation Comments POC-GLUCOSE METER 98 mg/dL 70-110 TESTED AT [facility] [address] (BEAKER) (test code = [facility] 1530) [place] [address] POCT-GLUCOSE [id number] 11:36:00 Test Item Value Reference Range Interpretation Comments POC-GLUCOSE METER 127 mg/dL 70-110 H TESTED AT [facility] [address] (BEAKER) (test code [facility] = 1538) [place] [address] WOUND CULTURE + GRAM [id number] 11:05:00 Test Item Value Reference Interpretation Comments [...] No organisms seen (BEAKER) (test code = 998384) POCT-GLUCOSE [id number] 05:54:00 Test Item Value Reference Range Interpretation Comments POC-GLUCOSE METER 116 mg/dL 70-110 H TESTED AT [facility] [address] (BEAKER) (test code [facility] = 1538) [place] [address] [id number] 03:42:00 Test Item Value Reference Range Interpretation Comments PHOSPHORUS (BEAKER) (test code = 3.8 mg/dL 2.5-4.5 604) [id number] 03:42:00 Test Item Value Reference Range Interpretation Comments MAGNESIUM (BEAKER) (test code = 1.9 mg/dL 1.5-3.0 627) BASIC METABOLIC [id number] 03:42:00 Test Item Value Reference Range Interpretation [...] PATIEN TS. CBC W/PLT COUNT & AUTO [id number] 03:21:00 Test Item Value Reference Range Interpretation [...] PERCENT (BEAKER) (test code = 2801) POCT-GLUCOSE [id number] 20:55:00 Test Item Value Reference Range Interpretation Comments POC-GLUCOSE METER 122 mg/dL 70-110 H TESTED AT [facility] [address] (BEAKER) (test code [facility] = 1538) [place] [address] POCT-GLUCOSE [id number] 16:19:00 Test Item Value Reference Range Interpretation Comments POC-GLUCOSE METER 136 mg/dL 70-110 H TESTED AT [facility] [address] (BEAKER) (test code [facility] = 1538) [place] [address] HEMOGLOBIN AND [id number] 14:19:00 Test Item Value Reference Range Interpretation Comments HEMOGLOBIN (BEAKER) (test code = 8.1 GM/DL 12.0-15.5 L 410) HEMATOCRIT (BEAKER) (test code = 24.9 % 36.0-46.0 L 411) POCT-GLUCOSE [id number] 12:13:00 Test Item Value Reference Range Interpretation Comments POC-GLUCOSE METER 142 mg/dL 70-110 H TESTED AT [facility] [address] (BEAKER) (test code [facility] = 1538) [place] [address] POCT-GLUCOSE [id number] 06:02:00 Test Item Value Reference Range Interpretation Comments POC-GLUCOSE METER 109 mg/dL 70-110 TESTED AT [facility] [address] (BEAKER) (test code [facility] = 1538) [place] [address] POCT-GLUCOSE [id number] 05:38:00 Test Item Value Reference Range Interpretation Comments POC-GLUCOSE METER 150 mg/dL 70-110 H TESTED AT [facility] [address] (BEAKER) (test code [facility] = 1538) [place] [address] TYPE AND SCREEN, [id number] 03:11:00 Test Item Value Reference Range Interpretation Comments ABO/RH AUTOMATED (BEAKER) (test B Positive code = 2260) AB SCREEN (BEAKER) (test code = Negative 923) HEMOGLOBIN AND [id number] 02:41:00 Test Item Value Reference Range Interpretation Comments HEMOGLOBIN (BEAKER) (test code = 5.9 GM/DL 12.0-15.5 LL 410) HEMATOCRIT (BEAKER) (test code = 18.2 % 36.0-46.0 LL 411) COMPREHENSIVE METABOLIC [id number] 01:43:00 Test Item Value Reference Range Interpretation [...] S NOT APPLICABLE FOR DIALYSIS PATIEN TS. [id number] 01:36:00 Test Item Value Reference Range Interpretation Comments PHOSPHORUS (BEAKER) (test code = 3.3 mg/dL 2.5-4.5 604) [id number] 01:36:00 Test Item Value Reference Range Interpretation Comments MAGNESIUM (BEAKER) (test code = 1.9 mg/dL 1.5-3.0 627) LACTIC ACID, VENOUS, WHOLE [id number] 01:29:00 Test Item Value Reference Range Interpretation Comments LACTATE BLOOD VENOUS (2) (BEAKER) 0.8 mmol/L 0.5-2.2 (test code = 2872) Effective 07/19/2015: Units/Reference Range ChangeNew: 0.5-2.2 mmol/L Previous: 5-20 mg/dLCBC W/PLT COUNT & AUTO [id number] 01:25:00 Test Item Value Reference Range Interpretation [...] PERCENT (BEAKER) (test code = 2801) POCT-GLUCOSE [id number] 21:52:00 Test Item Value Reference Range Interpretation Comments POC-GLUCOSE METER 113 mg/dL 70-110 H TESTED AT [facility] [address] (BEAKER) (test code [facility] = 1538) [place] [address] CT, EXTREMITY, LOWER WITHOUT CONTRAST, [id number] 19:15:00FINAL REPORT CT scan of the right [...] is seen within this abscess. Signed: Alexandrea Martines Verified Date/Time: 11/07/2017 19:15:59 Reading Location: [address] Consult Reading Room RAD, HIP, 2 VIEWS, [id number] 16:19:00Reason for exam:->HIP PAIN FINAL REPORT INDICATION:Right hip pain status post right hip replacement ninedays ago. COMPARISON: October 29, 2017 TECHNIQUE: Right hip radiograph two views. FINDINGS / IMPRESSION:Total right hip replacement is well positioned and normally aligned on AP and frog-leg lateral views. No fracture is demonstrated. Residual air in the lateral hip soft tissues noted. Signed: Sandro Singletary Verified Date/Time: 11/07/2017 16:19:47 Reading Location: [facility] Women CBC W/PLT COUNT & AUTO [id number] 16:00:00 Test Item Value Reference Range Interpretation [...] (BEAKER) (test code Normal = 762) C-REACTIVE [id number] 15:30:00 Test Item Value Reference Range Interpretation Comments C-REACTIVE PROTEIN (BEAKER) (test 47.39 mg/dL 0.00-0.50 H code = 676) COMPREHENSIVE METABOLIC [id number] 15:30:00 Test Item Value Reference Range Interpretation [...] APPLICABLE FOR DIALYSIS PATIEN TS. BASIC METABOLIC [id number] 06:26:00 Test Item Value Reference Range Interpretation [...] PATIEN TS. CBC W/PLT COUNT & AUTO [id number] 06:12:00 Test Item Value Reference Range Interpretation [...] L 0.00-0.20 (test code = 417) POCT-GLUCOSE [id number] 05:55:00 Test Item Value Reference Range Interpretation Comments POC-GLUCOSE METER 120 mg/dL 70-110 H TESTED AT [facility] [address] (BEAKER) (test code [facility] = 1538) [place] [address] POCT-GLUCOSE [id number] 21:07:00 Test Item Value Reference Range Interpretation Comments POC-GLUCOSE METER 121 mg/dL 70-110 H TESTED AT [facility] [address] (BEAKER) (test code [employer] [facility] = 1538) [place] [address] POCT-GLUCOSE [id number] 17:45:00 Test Item Value Reference Range Interpretation Comments POC-GLUCOSE METER 131 mg/dL 70-110 H TESTED AT [facility] [address] (BEAKER) (test code [facility] = 1538) [place] [address] HEMOGLOBIN AND [id number] 14:26:00 Test Item Value Reference Range Interpretation Comments HEMOGLOBIN (BEAKER) (test code = 7.9 GM/DL 12.0-15.0 L 410) HEMATOCRIT (BEAKER) (test code = 24.6 % 36.0-45.0 L 411) POCT-GLUCOSE [id number] 11:22:00 Test Item Value Reference Range Interpretation Comments POC-GLUCOSE METER 134 mg/dL 70-110 H TESTED AT [facility] [address] (BEAKER) (test code [facility] = 1538) [place] [address] BASIC METABOLIC [id number] 05:16:00 Test Item Value Reference Range Interpretation [...] APPLICABLE FOR DIALYSIS PATIEN TS. Specimen recollected. [id number] 04:56:00 Test Item Value Reference Range Interpretation Comments POC-GLUCOSE METER 141 mg/dL 70-110 H TESTED AT [facility] [address] (BEAKER) (test code [facility] = 1538) [place] [address] HEMOGLOBIN AND [id number] 04:10:00 Test Item Value Reference Range Interpretation [...] few 965) CBC W/PLT COUNT & AUTO [id number] 21:34:00 Test Item Value Reference Range Interpretation [...] 6.5-10.5 (BEAKER) (test code = 754) POCT-GLUCOSE [id number] 21:17:00 Test Item Value Reference Range Interpretation Comments POC-GLUCOSE METER 126 mg/dL 70-110 H TESTED AT [facility] [address] (BEAKER) (test code [facility] = 1538) [place] [address] POCT-GLUCOSE [id number] 18:04:00 Test Item Value Reference Range Interpretation Comments POC-GLUCOSE METER 117 mg/dL 70-[address] [place] [address] [address] (BEAKER) (test code [facility] = 1538) [place] [address] POCT-GLUCOSE [id number] 11:38:00 Test Item Value Reference Range Interpretation Comments POC-GLUCOSE METER 133 mg/dL 70-110 H TESTED AT [facility] [address] (BEAKER) (test code [facility] = 1538) [place] [address] BASIC METABOLIC [id number] 04:20:00 Test Item Value Reference Range Interpretation [...] APPLICABLE FOR DIALYSIS PATIEN TS. HEMOGLOBIN AND [id number] 04:11:00 Test Item Value Reference Range Interpretation Comments HEMOGLOBIN (BEAKER) (test code = 8.1 GM/DL 12.0-15.0 L 410) HEMATOCRIT (BEAKER) (test code = 25.6 % 36.0-45.0 L 411) POCT-GLUCOSE [id number] 04:03:00 Test Item Value Reference Range Interpretation Comments POC-GLUCOSE METER 151 mg/dL 70-110 H TESTED AT [facility] [address] ([facility]) (test code [facility] = 1538) [place] [address] RAD, HIP, 1 VIEW, [id number] 21:16:00Reason for exam:->postopShould this be performed at the bedside?->YesFINAL REPORT Exam: AP hip CLINICAL INDICATION: Right hip arthroplasty IMPRESSION: Compared with intraoperative image performed earlier today at 1400 hours. The patient is status post a right hip arthroplasty. The alignment is near anatomic. No definite evidence of a periprosthetic fracture. As before, postoperative changes are noted in the adjacent soft tissues. Signed: Jarad Laueport Verified Date/Time: 10/29/2017 21:16:21 Reading Location: [address] ading Room POCT-GLUCOSE [id number] 20:20:00 Test Item Value Reference Range Interpretation Comments POC-GLUCOSE METER 76 mg/dL 70-110 TESTED AT [facility] [address] ([facility]) (test code = [facility] 1538) [place] [address] POCT-GLUCOSE [id number] 15:13:00 Test Item Value Reference Range Interpretation Comments POC-GLUCOSE METER 150 mg/dL 70-110 H TESTED AT [facility] [address] ([facility]) (test code [facility] = 1538) [place] [address] RAD, HIP, OPERATIVE, [id number] 14:41:00Reason for exam:->RequiredFINAL REPORT RIGHT HIP ONE VIEW HISTORY: Right hip pain, right hip arthroplasty COMPARISON: None FINDINGS: Single intraoperative image of the right hip/low pelvis shows in progress changes of right hip total arthroplasty. A reamer is present in the proximal right femur. The acetabular region is obscured by overlying hardware. Signed: Ceci Aldricheport Verified Date/Time: 10/29/2017 14:41:51 Reading Location: [facility] Radiology Reading Room POCT- GLUCOSE [id number] 09:53:00 Test Item Value Reference Range Interpretation Comments POC-GLUCOSE METER 104 mg/dL 70-110 TESTED AT [facility] [address] ([facility]) (test code [facility] = 1538) [place] [address] BASIC METABOLIC [id number] 12:23:00 Test Item Value Reference Range Interpretation [...] APPLICABLE FOR DIALYSIS PATIEN TS. URINALYSIS W/ [id number] 12:21:00 Test Item Value Reference Range Interpretation [...] code = 1663) SOURCE(BEAKER) (test code = 3135) CBC W/PLT COUNT & AUTO [id number] 12:18:00 Test Item Value Reference Range Interpretation [...] L 0.00-0.20 (test code = 417) MRSA [id number] 08:33:00 Test Item Value Reference Range Interpretation Comments CULTURE (BEAKER) (test code No MRSA isolated = 1095)
[2021-02-25] MEDS ORDERED: PROMETHAZINE INJ 25 MG/ML AMP ONE ×3 (15:38→22:47)
[2021-02-25] MEDS ORDERED: FAMOTIDINE 20 MG/2 ML VIAL IV ONE (15:39)
[2021-02-25] MEDS ORDERED: NA CHLORIDE 0.9% 50 ML ONE ×2 (15:39→16:38)
[2021-02-25] MEDS ORDERED: HYDROMORPHONE HCL 1 MG/ML INJ ONE ×3 (15:39→22:47)
[2021-02-25 15:47] LABS: Absolute Lymphocytes (CBC) 0.5 K/uL (0.7-4.9); Basophils % 0.2 % (0-1.3); Hematocrit 24.6 % (36.0-45.0); Lymphocytes % 2.9 % (15.3-44.8); MPV 7.7 fL (7.6-11.3); RBC Red Blood Cell Count 3.14 M/uL (3.86-4.86)
--- NOTE | 2021-02-25 15:49 | RAD REPORT ---
EXAM DESCRIPTION: RAD - Chest Single View - 02/25/2021 3:36 pm CLINICAL HISTORY: CHEST PAIN COMPARISON: February 12 TECHNIQUE: AP portable chest image was obtained 02/25/2021 3:36 pm . FINDINGS: No peripheral mass consolidation. Interstitial markings are mildly prominent but far less prominent than seen on the comparison. Hilar regions within normal range. Mild cardiomegaly is presen t similar to comparison. Central vasculature is decreased. Left-side PICC line is unchanged. No measurable pleural effusion and no pneumothorax. No acute bony abnormality seen. No acute aortic findings suspected. IMPRESSION: No peripheral mass or consolidation. Heart, vasculature and lung markings are mildly prominent but far less pronounced than seen on the vem study.
[2021-02-25 15:52] LABS: Protime INR 1.46
[2021-02-25 16:04] LABS: Albumin 2.3 g/dL (3.4-5.0); Bilirubin Direct 0.6 mg/dL (0-0.2); Bilirubin Total 1.2 mg/dL (0.2-1.0); Magnesium 1.7 mg/dL (1.8-2.4); Potassium 3.1 mmol/L (3.5-5.1); Protein, Total 7.2 g/dL (6.4-8.2); Troponin (Emerg Dept Use Only) 0.03 ng/mL (0.0-0.045)
[2021-02-25] MEDS ORDERED: MAGNESIUM SULFATE 1 gm IVPB 1 GM/100 ML BAG IV ONE (17:36)
--- NOTE | 2021-02-25 17:42 | RAD REPORT ---
EXAM DESCRIPTION: US - Abdomen Exam Limited - 02/25/2021 5:07 pm CLINICAL HISTORY: elevated liver enzymes COMPARISON: Abdomen Pelvis W Contrast dated 01/25/2021 FINDINGS: No gallstones, sludge or other abnormalities within the gallbladder lumen. There is no wal l thickening or pericholecystic fluid. No common duct stone or biliary tree dilatation identified. IMPRESSION: Normal gallbladder and biliary tree ultrasound.
[2021-02-25] MEDS ORDERED: POTASSIUM 25 MEQ EFFERV TAB ONE (18:04)
[2021-02-25] MEDS ORDERED: FUROSEMIDE 40 MG/4 ML VIAL ONE (18:04)
[2021-02-25] MEDS ORDERED: HYDROMORPHONE ORAL 4 MG TAB ONE (19:06)
[2021-02-25 19:41] LABS: Urine Blood 2+ (Negative); Urine Glucose Negative (Negative); Urine Protein 1+ (Negative); Urine Specific Gravity 1.015 (1.005-1.030); Urine pH 5.5 (5.0-7.0)
--- NOTE | 2021-02-25 22:12 | ER ---
Nurse's Notes [facility] Name: Sade Galdamez Age: 60 yrs Sex: Female : 1960 Arrival Date: 02/25/2021 Time: 15:06 Bed 18 Private MD: Diagnosis: Other chronic pain;Combined systolic (congestive) and diastolic (congestive) heart failure Presentation: 02/25 15:12 Chief complaint: Patient states: Constant CP (just L of sternum) for 2 days. Pain ll1 radiates through to back. Stage 4 breast CA with mets to L groin/hip area. No fever or cough. Coronavirus screen: Vaccine status: Patient reports receiving the 2nd dose of the covid vaccine. Client denies travel out of the [place] in the last 14 days. At this time, the client does not indicate any symptoms associated with coronavirus-19. Ebola Screen: Patient denies travel to an Ebola-affected area in the 21 days before illness onset. Initial Sepsis Screen: Does the patient meet any 2 criteria? HR > 90 bpm. No. Patient's initial sepsis screen is negative. Does the patient have a suspected source of infection? No. Patient's initial sepsis screen is negative. Risk Assessment: Do you want to hurt yourself or someone else? Patient reports no desire to harm self or others. Onset of symptoms was February 24, 2021. 15:12 Method Of Arrival: EMS ll1 15:12 Acuity: ABDIRIZAK 3 ll1 15:18 Chief complaint: EMS states: VSS, Blood sugar 115. ll1 Triage Assessment: 15:16 General: Appears in no apparent distress. Behavior is calm, cooperative, appropriate ll1 for age. Pain: Complains of pain in chest Quality of pain is described as aching. Neuro: No deficits noted. Cardiovascular: Reports chest pain, Heart tones S1 S2 Capillary refill < 3 seconds Clubbing of nail beds is absent JVD is absent Patient's skin is warm and dry. Respiratory: No deficits noted. Musculoskeletal: Circulation, motion, and sensation intact. Capillary refill < 3 seconds, Reports pain in back. Historical: - Allergies: 15:15 Iodinated Contrast Media - IV Dye; ll1 15:15 iopamidol; ll1 - PMHx: 15:15 breast cancer; chemotherapy; Hypertension; Tumor to groin area; ll1 - PSHx: 15:15 ovi mastectomy; hysterectomy; ll1 - Immunization history:: Adult Immunizations up to date, Client reports receiving the 2nd dose of the Covid vaccine. - Social history:: Smoking status: Patient denies any tobacco usage or history of. Screenin:15 Abuse screen: Denies threats or abuse. Nutritional screening: No deficits noted. ll1 Tuberculosis screening: No symptoms or risk factors identified. 15:17 Fall Risk IV access (20 points). Total Schaeffer Fall Scale indicates No Risk (0-24 pts). ll1 Assessment: 15:55 Reassessment: No changes from previously documented assessment. Patient and/or family ll1 updated on plan of care and expected duration. Pain level reassessed. Patient is alert, oriented x 3, equal unlabored respirations, skin warm/dry/pink. 16:53 Reassessment: No changes from previously documented assessment. Patient and/or family ll1 updated on plan of care and expected duration. Pain level reassessed. Patient is alert, oriented x 3, equal unlabored respirations, skin warm/dry/pink. 18:00 Reassessment: No changes from previously documented assessment. Patient and/or family ll1 updated on plan of care and expected duration. Pain level reassessed. Patient is alert, oriented x 3, equal unlabored respirations, skin warm/dry/pink. 19:00 Reassessment: No changes from previously documented assessment. Patient and/or family ll1 updated on plan of care and expected duration. Pain level reassessed. Patient is alert, oriented x 3, equal unlabored respirations, skin warm/dry/pink. refused PO Dilaudid. Wanted IV Dilaudid. C. Page informed. . 02/26 02:02 Reassessment: Resting . Refuses vital signs. . sv1 02:03 Reassessment: Tolerated pain medss well. No adverse effect. . Reassessment: resting sv1 quietly. Vital Signs: 02/25 15:12 BP 108 / 63; Pulse 98; Resp 18; Temp 97.8; Pulse Ox 99% on R/A; Weight 104.33 kg; ll1 Height 5 ft. 5 in. (165.10 cm); Pain 10/10; 16:24 BP 106 / 66; Pulse 91; Resp 18; Pulse Ox 97% on R/A; ll1 16:53 BP 103 / 57; Pulse 93; Resp 16; Pulse Ox 95% ; ll1 12 01:31 BP 102 / 57; Pulse 87; Resp 16; Temp 98.2; Pulse Ox 96% ; lt3 02:09 Pain 2/10; sv1 02/25 15:12 Body Mass Index 38.27 (104.33 kg, 165.10 cm) 1 ED Course: 02/25 15:06 Patient arrived in ED. iw 15:12 Clare Washington, RN is Primary Nurse. ll1 15:12 Arm band placed on Patient placed in an exam room, on a stretcher. ll1 15:13 Jean Carlos Kenyon PA is PHCP. cp 15:13 Scott Cortez MD is Attending Physician. cp 15:15 Triage completed. ll1 15:15 Patient has correct armband on for positive identification. Bed in low position. Call ll1 light in reach. Side rails up X2. ekg monitor on. Pulse ox on. NIBP on. 15:25 EKG done, by ED staff, reviewed by Jean Carlos SEVILLA. dh3 15:36 XRAY Chest (1 view) In Process Unspecified. EDMS 15:50 Accessed PICC line. using ,sterile technique, per hospital protocol. Dressing intact. ll1 Good blood return. Flushes easily. 17:07 US Abdomen Limited In Process Unspecified. EDMS 19:14 Primary Nurse role handed off by Clare Washington, SILAS mw2 19:15 Clare Washington RN is Primary Nurse. 1 02/26 02:06 No provider procedures requiring assistance completed. sv1 02:07 Patient did not have IV access during this emergency room visit. sv1 Administered Medications: 02/25 00:00 Drug: Dilaudid (HYDROmorphone) 1 mg Route: IVP; Site: left antecubital; sv1 02/26 02:09 Follow up: Pain 2/10 Adult sv1 02/25 15:53 Drug: Dilaudid (HYDROmorphone) 1 mg {Note: rass 0.} Route: IVP; Site: PICC; ll1 16:43 Follow up: Response: No adverse reaction; Pain is decreased; RASS: Alert and Calm (0) ll1 15:55 Drug: Phenergan (promethazine) 12.5 mg Route: IVP; Site: PICC; ll1 16:43 Follow up: Response: No adverse reaction; Nausea unchanged; RASS: Alert and Calm (0) ll1 15:55 Drug: Pepcid (famotidine) 20 mg Route: IVP; Site: PICC; ll1 16:52 Follow up: Response: No adverse reaction ll1 16:45 Drug: Dilaudid (HYDROmorphone) 1 mg {Note: rass 0.} Route: IVP; Site: PICC; ll1 17:30 Follow up: Response: No adverse reaction ll1 16:45 Drug: Phenergan (promethazine) 12.5 mg Route: IVP; Site: PICC; ll1 17:30 Follow up: Response: No adverse reaction ll1 17:51 CANCELLED (Physician Discretion): Lasix (furosemide) 20 mg IVP once; give over 2 minutescp 18:02 Drug: Magnesium Sulfate 1 grams Route: IVPB; Infused Over: 1 hrs; Site: PICC; ll1 19:16 Follow up: Response: No adverse reaction; IV Status: Completed infusion; IV Intake: ll1 100ml 18:12 Drug: Potassium Effervescent Tablet 50 mEq Route: PO; ll1 19:16 Follow up: Response: No adverse reaction ll1 18:12 Drug: Lasix (furosemide) 40 mg Route: IVP; Site: PICC; ll1 19:16 Follow up: Response: No adverse reaction ll1 19:16 Not Given (Physician Discretion): Dilaudid (HYDROmorphone) 2 mg PO once; RASS on ADMIN: cp Combtv4, Very Agttd3, Agttd2, Rstlss1, AlertClm0, Drwsy-1, Lt Sdtn-2, Mod Sdtn-3, Dp Sdtn-4, UnArsble-5 02/26 02:09 Drug: Phenergan (promethazine) 12.5 mg Route: IVP; Site: left antecubital; sv1 02:09 Follow up: Response: Nausea is decreased sv1 Intake: 02/25 19:16 IV: 100ml; Total: 100ml. ll1 Outcome: 22:11 Discharge ordered by MD. smalls 02/26 02:07 Discharged to home ambulatory. sv1 Condition: improved 02:07 Discharge instructions given to patient. sv1 02:10 Patient left the ED. sv1 Signatures: Dispatcher [employer] EDDelfina Walker, RN RN Jean Carlos Kenyon PA PA cp Herrera, Deanna 3 Desmond Hernández 2 Clare Washington RN RN ll1 Julia Phan 3 Aydin Friedman RN RN sv1 Corrections: (The following items were deleted from the chart) 02/25 16:52 16:52 Phenergan (promethazine) 12.5 mg IVP in PICC ll1 ll1
--- NOTE | 2021-02-25 22:12 | EDPHYS ---
Physician Documentation [facility] Name: Sade Galdamez Age: 60 yrs Sex: Female : 1960 Arrival Date: 02/25/2021 Time: 15:06 Bed 18 Private MD: ED Physician Scott Cortez HPI: 02/25 15:27 This 60 yrs old Black Female presents to ER via EMS with complaints of Chest Pain. cp 15:27 The patient or guardian reports chest pain that is located primarily in the anterior cp chest wall, left. Onset: yesterday. 15:27 The pain radiates to cp 15:27 Associated signs and symptoms: Pertinent positives: lower extremity pain, lower cp extremity swelling, nausea, shortness of breath, vomiting, Pertinent negatives: abdominal pain, diaphoresis, dizziness, headache, syncope. The chest pain is described as constant. Duration: The patient or guardian reports a single episode, that is still ongoing. Severity of pain: in the emergency department the pain is unchanged despite home interventions. The patient has experienced similar episodes in the past, chronically. Historical: - Allergies: 15:15 Iodinated Contrast Media - IV Dye; ll1 15:15 iopamidol; ll1 - PMHx: 15:15 breast cancer; chemotherapy; Hypertension; Tumor to groin area; ll1 - PSHx: 15:15 ovi mastectomy; hysterectomy; ll1 - Immunization history:: Adult Immunizations up to date, Client reports receiving the 2nd dose of the Covid vaccine. - Social history:: Smoking status: Patient denies any tobacco usage or history of. ROS: 15:30 Constitutional: Negative for body aches, chills, fever, poor PO intake. cp 15:30 Eyes: Negative for injury, pain, redness, and discharge. cp 15:30 ENT: Negative for ear pain, sore throat, difficulty swallowing, difficulty handling secretions. 15:30 Cardiovascular: Positive for chest pain, edema, Negative for palpitations. 15:30 Respiratory: Negative for cough, shortness of breath, wheezing. 15:30 Abdomen/GI: Negative for abdominal pain, nausea, vomiting, and diarrhea. 15:30 Back: Negative for pain at rest, pain with movement. 15:30 : Negative for urinary symptoms. 15:30 Neuro: Negative for altered mental status, headache, loss of consciousness, syncope, weakness. 15:30 All other systems are negative. Exam: 15:25 ECG was reviewed by the Attending Physician. cp 15:35 Constitutional: The patient appears in no acute distress, alert, awake, cp non-diaphoretic, non-toxic, well developed, well nourished, obese, uncomfortable. 15:35 Head/Face: Normocephalic, atraumatic. cp 15:35 Eyes: Periorbital structures: appear normal, Conjunctiva: normal, no exudate, no injection, Sclera: no appreciated abnormality, Lids and lashes: appear normal, bilaterally. 15:35 ENT: External ear(s): are unremarkable, Nose: is normal, Mouth: Lips: moist, Oral mucosa: moist, Posterior pharynx: Airway: no evidence of obstruction, patent. 15:35 Neck: ROM/movement: is normal, is supple, without pain, no range of motions limitations, no nuchal rigidity. 15:35 Chest/axilla: Inspection: normal. 15:35 Cardiovascular: Rate: normal, Rhythm: regular, Edema: ankle edema, that is mild, JVD: is not appreciated. 15:35 Respiratory: the patient does not display signs of respiratory distress, Respirations: labored breathing, that is mild, intercostal retractions, are absent, Breath sounds: are clear throughout, no decreased breath sounds, no stridor, no wheezing. 15:35 Abdomen/GI: Inspection: obese Palpation: abdomen is soft and non-tender, in all quadrants. 15:35 Back: pain, that is moderate, ROM is normal. 15:35 Skin: no rash present. 15:35 Neuro: Orientation: to person, place \T\ time. Mentation: is normal, Motor: moves all fours, strength is normal, Sensation: is normal. Vital Signs: 15:12 BP 108 / 63; Pulse 98; Resp 18; Temp 97.8; Pulse Ox 99% on R/A; Weight 104.33 kg; ll1 Height 5 ft. 5 in. (165.10 cm); Pain 10/10; 16:24 BP 106 / 66; Pulse 91; Resp 18; Pulse Ox 97% on R/A; ll1 16:53 BP 103 / 57; Pulse 93; Resp 16; Pulse Ox 95% ; ll1 02/26 01:31 BP 102 / 57; Pulse 87; Resp 16; Temp 98.2; Pulse Ox 96% ; lt3 02:09 Pain 2/10; sv1 02/25 15:12 Body Mass Index 38.27 (104.33 kg, 165.10 cm) ll1 MDM: 02/25 15:19 Patient medically screened. 16:00 Differential diagnosis: acute myocardial infarction, acute pericarditis, cp costochondritis, pericarditis, pleurisy, pneumonia, pneumothorax, pulmonary embolus, stable angina, thoracic aortic disection, unstable angina. 18:30 Physician consultation: Meir Miller regarding admission, to the telemetry unit. cp patient's condition, would like consultation with with cardiology concerning recent cardiac catheterization. 19:15 Physician consultation: Meir Miller was contacted at 19:15, reports consult with DR slim Roca who performed normal cardiac catheterization on 01-26-2021. 22:10 Data reviewed: vital signs, nurses notes, lab test result(s), EKG, radiologic studies, cp plain films. 22:10 Test interpretation: by ED physician or midlevel provider: ECG, plain radiologic cp studies. Counseling: I had a detailed discussion with the patient and/or guardian regarding: the historical points, exam findings, and any diagnostic results supporting the discharge/admit diagnosis, lab results, radiology results, to return to the emergency department if symptoms worsen or persist or if there are any questions or concerns that arise at home. Special discussion: Based on the patient's history, exam, and Dx evaluation, there is no indication for emergent intervention or inpatient Tx. It is understood by the patient/guardian that if the Sx's persist or worsen they need to return immediately for re-evaluation. 02/25 15:19 Order name: Basic Metabolic Panel; Complete Time: 16:28 cp 02/25 16:28 Interpretation: Normal except: K 3.1; GLUC 123; BUN 19; CRE 1.40; GFR 46; CA 8.4. 02/25 15:19 Order name: CBC with Diff; Complete Time: 15:59 cp 02/25 15:59 Interpretation: Normal except: WBC 15.80; RBC 3.14; HGB 7.9; HCT 24.6; MCV 78.2; MCH cp 25.0; PLT 151; RDW 19.3; JOE% 96.3; LYM% 2.9; NEUT A 15.2; LYMA 0.5; MN% 0.5. 02/25 15:19 Order name: LFT's; Complete Time: 16:28 12/12 16:29 Interpretation: Normal except: AST 12; ALK 133; BILIT 1.2; BILID 0.6; ALB 2.3; GLOB cp 4.9; A/G 0.5. 02/25 15:19 Order name: Magnesium; Complete Time: 16:28 02/25 17:14 Interpretation: Abnormal: MG 1.7. 02/25 15:19 Order name: NT PRO-BNP; Complete Time: 16:28 02/25 17:13 Interpretation: Abnormal: NT PRO-BNP [id number]. 02/25 15:19 Order name: PT-INR; Complete Time: 15:59 02/25 15:19 Order name: Troponin (emerg Dept Use Only); Complete Time: 16:28 02/25 17:14 Interpretation: TROPED 0.03; Reviewed. 02/25 15:19 Order name: XRAY Chest (1 view); Complete Time: 15:59 02/25 15:59 Interpretation: Report reviewed. 02/25 16:31 Order name: US Abdomen Limited; Complete Time: 17:50 02/25 17:50 Interpretation: Report reviewed. 02/25 18:37 Order name: Troponin (emerg Dept Use Only); Complete Time: 22:21 02/25 19:41 Order name: Urine Dipstick-Ancillary; Complete Time: 20:44 EDMS 02/25 20:44 Interpretation: Normal except: UBLD 2+; UPROT 1+. /12 15:19 Order name: EKG; Complete Time: 15:20 12 15:19 Order name: Cardiac monitoring; Complete Time: 15:26 12 15:19 Order name: EKG - Nurse/Tech; Complete Time: 15:26 /12 15:19 Order name: IV Saline Lock; Complete Time: 15:35 02/25 15:19 Order name: Labs collected and sent; Complete Time: 15:35 02/25 15:19 Order name: O2 Per Protocol; Complete Time: 15:26 02/25 15:19 Order name: O2 Sat Monitoring; Complete Time: 15:26 cp 02/25 16:31 Order name: NPO; Complete Time: 16:32 cp EC:25 Rate is 98 beats/min. Rhythm is regular. SC interval is normal. QRS interval is normal. cp QT interval is prolonged at 448 msec. T waves are Inverted in leads V2, V3, V4, V5, V6. Interpreted by me. Reviewed by me. Administered Medications: 00:00 Drug: Dilaudid (HYDROmorphone) 1 mg Route: IVP; Site: left antecubital; sv1 02/26 02:09 Follow up: Pain 04/26 Adult sv1 02/25 15:53 Drug: Dilaudid (HYDROmorphone) 1 mg {Note: rass 0.} Route: IVP; Site: PICC; ll1 16:43 Follow up: Response: No adverse reaction; Pain is decreased; RASS: Alert and Calm (0) ll1 15:55 Drug: Phenergan (promethazine) 12.5 mg Route: IVP; Site: PICC; ll1 16:43 Follow up: Response: No adverse reaction; Nausea unchanged; RASS: Alert and Calm (0) ll1 15:55 Drug: Pepcid (famotidine) 20 mg Route: IVP; Site: PICC; ll1 16:52 Follow up: Response: No adverse reaction ll1 16:45 Drug: Dilaudid (HYDROmorphone) 1 mg {Note: rass 0.} Route: IVP; Site: PICC; ll1 17:30 Follow up: Response: No adverse reaction ll1 16:45 Drug: Phenergan (promethazine) 12.5 mg Route: IVP; Site: PICC; ll1 17:30 Follow up: Response: No adverse reaction ll1 17:51 CANCELLED (Physician Discretion): Lasix (furosemide) 20 mg IVP once; give over 2 minutescp 18:02 Drug: Magnesium Sulfate 1 grams Route: IVPB; Infused Over: 1 hrs; Site: PICC; ll1 19:16 Follow up: Response: No adverse reaction; IV Status: Completed infusion; IV Intake: ll1 100ml 18:12 Drug: Potassium Effervescent Tablet 50 mEq Route: PO; ll1 19:16 Follow up: Response: No adverse reaction ll1 18:12 Drug: Lasix (furosemide) 40 mg Route: IVP; Site: PICC; ll1 19:16 Follow up: Response: No adverse reaction ll1 19:16 Not Given (Physician Discretion): Dilaudid (HYDROmorphone) 2 mg PO once; RASS on ADMIN: cp Combtv4, Very Agttd3, Agttd2, Rstlss1, AlertClm0, Drwsy-1, Lt Sdtn-2, Mod Sdtn-3, Dp Sdtn-4, UnArsble-5 02/26 02:09 Drug: Phenergan (promethazine) 12.5 mg Route: IVP; Site: left antecubital; sv1 02:09 Follow up: Response: Nausea is decreased sv1 Disposition Summary: 02/25/21 22:11 Discharge Ordered Location: Home cp Problem: chronic cp Symptoms: have improved cp Condition: Stable cp Diagnosis - Other chronic pain cp - Combined systolic (congestive) and diastolic (congestive) heart failure cp Followup: cp - With: Private Physician - When: 1 - 2 days - Reason: Recheck today's complaints Discharge Instructions: - Discharge Summary Sheet cp - Chronic Pain, Adult cp - Heart Failure, Diagnosis cp - Heart Failure Eating Plan cp - Hypokalemia cp Forms: - Medication Reconciliation Form cp - Thank You Letter cp Signatures: Dispatcher [employer] EDJean Carlos Faust PA PA cp Clare Washington, RN RN ll1 Aydin Friedman RN RN sv1 Corrections: (The following items were deleted from the chart) 02/25 17:51 17:51 Lasix (furosemide) 20 mg IVP once; give over 2 minutes ordered. cp cp
[2021-02-26 02:22] VITALS: BP 102/57; TEMP 98.2; O2SAT 96
== END 2021-02-26 02:10 | disposition home or self-care (01) ==
LOC: ER 15:05
DX: I50.40 Unspecified combined systolic (congestive) and diastolic (congestive) heart failure (principal); G89.29 Other chronic pain; I10 Essential (primary) hypertension; Z85.3 Personal history of malignant neoplasm of breast; Z90.13 Acquired absence of bilateral breasts and nipples; Z91.048 Other nonmedicinal substance allergy status
CPT/HCPCS: 93005; 85025; 80048; 36415; 83735; 85610; 80076; 81003; 84484 ×2; 83880; 71045; 76705; 99285; J2550 ×3; J1940; J3475; J1170 ×3

== ENCOUNTER 2021-03-25 20:10 | Emergency (ER) | payer MEDICARE ==
--- OUTSIDE RECORDS SUMMARY | 2021-03-25 20:25 | XMS REPORT | Continuity of Care Document ---
:1960 Author Organization [facility] t Address [address] [place] [address] Care Team Providers Name Role Phone KALINA LAWSON Primary Care Physician Unavailable Nile TEJADA Attending Clinician Unavailable SYSTEM, NOT IN Attending Clinician Unavailable Jasmina MUNIZ Attending Clinician Unavailable Juju ROMERO Attending Clinician Unavailable Tez RON Attending Clinician Unavailable MAYE Attending Clinician Unavailable STEFANO Attending Clinician Unavailable SCOTT Attending Clinician Unavailable JAVI BRAY Attending Clinician Unavailable DIONTE Attending Clinician Unavailable LEONOR Attending Clinician Unavailable JUAN Attending Clinician Unavailable Nile Tejada MD Attending Clinician Boom Carlin MD Attending Clinician Caridad Escalante MD Attending Clinician Isabelle Ramos MD Attending Clinician [phone] Lazaro LYNN Attending Clinician ANA PAULA TAVARES Attending Clinician Unavailable STEVE GARCIA Attending Clinician Unavailable Nile TEJADA Admitting Clinician Unavailable JAVI BRAY Admitting Clinician Unavailable LEONOR Admitting Clinician Unavailable BOOM CARLIN Admitting Clinician Unavailable NARGIS Admitting Clinician Unavailable STEVE GARCIA Admitting Clinician Unavailable Payers Payer Name Policy Type Policy Number Effective Date Expiration Date S ource MEDICARE A B [id number] AET OPEN ACCESS [id number] 2017 HMO NAP 00:00:00 AAR MEDICARE [id number] 2020 COMPLETE CHOICE 00:00:00 [facility] [id number] [facility] - MEDICARE MGD 00:00:00 - [facility] [id number] 2020-Present MEDICARE PART A [id number] 2020 AND B 00:00:00 Problems Condition Condition Condition Status Onset Resolution Last Treating Co mments Source Name Details Category Date Date Treatment Clinician Date Venous Venous Disease Active [facility] obstruct[facility] obstructio 6 [facility] - n n 00:00: Medical 00 [facility] Mass of Mass of Disease Active [facility] iliopsoas iliopsoas 6 [facility] - muscle muscle 00:00: Medical group group 00 [facility] Pyoderma Pyoderma Disease Active Overview: [facility] gangrenosu gangrenosu 11-10 Post [facility] - m m 00:00: surgical Medical 00 [facility] Hip 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[facility] osteoarthr osteoarthr 8 [facility] - itis itis 00:00: Medical 00 [facility] Diabetes Diabetes Disease Active [facility] mellitus mellitus 10-29 [facility] - 00:00: Medical 00 [facility] Hypertensi Hypertensi Disease Active [facility] on on 10-29 [facility] - 00:00: Medical 00 [facility] Unilateral Unilateral Disease Active [facility] primary primary 10-07 [facility] - osteoarthr osteoarthr 00:00: Me dical itis, itis, 00 [facility] right hip right hip Surgical Surgical Disease Active [facility] wound wound [facility] - infection, infection, Me dical initial initial Center encounter encounter Allergies, Adverse Reactions, Alerts Allergy Allergy Status Severity Reaction(s) Onset Inactive Treating Comm ents Source Name Type Date Date Clinician Iopamido Propensi Active Anaphylaxis [facility] l ty to 10-06 [facility] - adverse 00:00: Medical reaction 00 [facility] s IOPAMIDO Allergy Active High Anaphylaxis SL EH L 10-06 00:00: 00 Family History Family Member Diagnosis Comments Start Date Stop Date Source Natural father Lung [facility] Diabetes [facility] Medical [facility] Social History Social Habit Start Date Stop Date Quantity Comments Source Sex Assigned At HOMAR Diop [facility] Tobacco use and 2017-11-18 2017-11-18 Never used HOMAR Diop - exposure 00:00:00 00:00:00 [facility] Alcohol intake 2017-11-18 2017-11-18 Current drinker HOMAR Rodriguez - 00:00:00 00:00:00 of alcohol [facility] (finding) Alcohol Comment 2017-10-06 2017-10-06 SOCIALLY HOMAR Dows - 00:00:00 00:00:00 Medical Center Smoking Status Start Date Stop Date Source Never smoker HOMAR Portillo [facility] Medications Ordered Filled Start Stop Current Ordering [...] Take [address] e glycol 6-07 09-27 by mouth [facility] - (GLYCOLAX) 00:00: 23:59 daily for M edical 17 gram 00 :00 3 days. Center packet polyethylen 2020-0 202- No 17g QD Take [address] e glycol 6-24 06-27 by mouth [facility] - (GLYCOLAX) 00:00: 23:59 daily for M edical 17 gram 00 :00 3 days. Center packet polyethylen 2020-2020- No 17g QD Take [address] e glycol 6-24 -27 by mouth [facility] - (GLYCOLAX) 00:00: 23:59 daily for M grant 17 gram 00 :00 3 days. Center [...] spasms for up to 10 days. HYDROmorpho 202-0 2020- No 2mg Take [address] [facility] [facility] [...] kg Systolic blood 2020-09-06 16:21:00 161 mm[Hg] [facility] Diastolic blood 2020-09-06 16:21:00 75 mm[Hg] [facility] Heart rate 2020-09-06 16:21:00 87 /min [facility] Body temperature 2020-09-06 16:21:00 35.78 [facility]ely [facility] Respiratory rate 2020-09-06 16:21:00 18 /min [facility] Oxygen saturation in 2020-09-06 16:21:00 97 /min [facility] Arterial blood by Medical Ce nter Pulse oximetry Body weight 2020-09-06 06:00:00 141.658 kg [facility] BMI 2020-09-06 06:00:00 50.41 kg/m2 [facility] Body height 2020-08-20 18:00:00 167.6 cm [facility] Procedures Procedure Date / Time Performed Performing Clinician [facility] e CT CHEST WITH IV CONTRAST 2020-09-05 12:35:00 Vandana Tejada [facility] COMPREHENSIVE METABOLIC 2020-09-05 05:16:00 Vandana Tejada [facility] 2D ECHO W/ DOPPLER 2020-09-05 01:05:[address] [facility] (CW/PW/COLOR) [facility] SARS-COV2/RT-PCR ([facility] & 2020-09-03 21:48:00 Tricia Ramos [facility] - REF LABS) [facility] CBC W/PLT COUNT & AUTO 2020-09-03 06:17:00 Vandana Tejada [facility] CBC (HEMOGRAM ONLY) 2020-09-02 04:36:00 Hari Carlin [facility] PROTHROMBIN TIME/INR 2020-09-02 04:36:00 BritDrewShabana [facility] CBC (HEMOGRAM ONLY) 2020-09-01 03:48:00 Reagan, [facility] PROTHROMBIN TIME/INR 2020-09-01 03:48:00 [facility] US CORE BIOPSY 2020-08-31 18:48:00 Vandana Tejada [facility] TISSUE EXAM 2020-08-31 18:37:00 Vandana Tejada [facility] VITAMIN B12 AND FOLATE 2020-08-31 04:45:00 Vandana Tejada [facility] CBC (HEMOGRAM ONLY) 2020-08-31 04:45:00 [facility] PROTHROMBIN TIME/INR 2020-08-31 04:45:00 [facility] CT ABDOMEN/PELVIS WITH IV 2020-08-30 10:28:00 [facility] CONTRAST [facility] CTA AAA AND RUNOFF 2020-08-30 10:28:00 [facility] BUN AND CREATININE 2020-08-30 05:17:00 [facility][note 3] CBC (HEMOGRAM ONLY) 2020-08-30 05:17:00 [facility] PROTHROMBIN TIME/INR 2020-08-30 05:17:00 [facility] HC ARTERIAL DOPPLER LEG 2020-08-29 16:05:[address] [facility] UNI [facility] CBC (HEMOGRAM ONLY) 2020-08-29 12:50:00 [facility], [facility] HEPARIN ASSAY - LOW 2020-08-29 12:50:00 [facility], [facility] - MOLECULAR WEIGHT [facility] CBC (HEMOGRAM ONLY) 2020-08-29 05:03:00 [facility] PROTHROMBIN TIME/INR 2020-08-29 05:03:00 [facility] BUN AND CREATININE 2020-08-28 16:37:00 Ravindericherlakhwinder [facility] - W/RATIO [facility] VENOUS DOPPLER LEG, LEFT 2020-08-28 12:43:00 Humberto Ramosal C [facility] CBC (HEMOGRAM ONLY) 2020-08-28 04:42:00 Raegan [facility] PROTHROMBIN TIME/INR 2020-08-28 04:42:00 [facility] SARS-COV2/RT-PCR ([facility] & 2020-08-27 18:10:00 [facility] Tricia C [facility] - REF LABS) [facility] PROTHROMBIN TIME/INR 2020-08-27 12:22:00 [facility] CBC (HEMOGRAM ONLY) 2020-08-27 04:06:00 [facility] PROTHROMBIN TIME/INR 2020-08-26 11:47:00 [facility] CBC (HEMOGRAM ONLY) 2020-08-26 11:47:00 [facility] CBC (HEMOGRAM ONLY) 2020-08-26 06:00:00 [facility] PROTHROMBIN TIME/INR 2020-08-25 18:11:00 [facility] CBC W/PLT COUNT & AUTO 2020-08-25 14:27:00 [facility] DIFFERENTIAL [facility] CBC (HEMOGRAM ONLY) 2020-08-25 06:58:00 Raegan [facility] APTT 2020-08-25 06:49:00 [facility] APTT 2020-08-24 22:45:00 [facility] APTT 2020-08-24 12:42:00 [facility] BASIC METABOLIC PANEL (7) 2020-08-24 05:41:00 BorisTom i [facility] CBC (HEMOGRAM ONLY) 2020-08-24 05:41:00 Hari Carlin [facility] APTT 2020-08-24 05:41:00 Gadichersc [facility] APTT 2020-08-23 21:14:00 [facility] ([facility] ONLY) 2020-08-23 14:11[facility]00 [facility] 2020-08-23 14:11:00 [facility] VENOUS DOPPLER LEG, LEFT 2020-08-23 12:46:00 Traceymagruder hospitalHumbertoal [facility] BASIC METABOLIC PANEL (7) 2020-08-23 04:08:00 Boris, Tom [facility] CBC (HEMOGRAM ONLY) 2020-08-23 04:08:00 Hari Carlin [facility] BASIC METABOLIC PANEL (7) 2020-08-22 05:37:00 BorisTom yoon [facility] CBC (HEMOGRAM ONLY) 2020-08-22 05:37:00 Hari Carlin [facility] US EXTREMITY NON-VASCULAR 2020-08-21 14:30:00 Hari Carlin [facility] CBC (HEMOGRAM ONLY) 2020-08-21 05:50:00 Hari Carlin [facility] COMPREHENSIVE METABOLIC 2020-08-21 05:50:00 Hari Carlin [facility] PROTHROMBIN TIME/INR 2020-08-21 05:50:00 Hari Carlin [facility] XR HIP 2 VIEWS LEFT 2020-08-20 18:25:00 Hari Carlin [facility] XR LUMBAR SPINE 2 OR 3 2020-08-20 18:20:00 Hari Carlin [facility] - VIEWS [facility] XR KNEE 3 VIEWS LEFT 2020-08-20 18:14:00 Hari Carlin [facility] CBC W/PLT COUNT & AUTO 2020-08-20 15:02:[address] [facility] DIFFERENTIAL [facility] COMPREHENSIVE METABOLIC 2020-08-20 15:02:00 Hari Carlin [facility] - PANEL [facility] MAGNESIUM 2020-08-20 15:02:00 Hari Carlin [facility] PHOSPHORUS 2020-08-20 15:02:00 Hari Carlin [facility] LACTATE DEHYDROGENASE 2020-08-20 15:02:[address] [facility] ([facility]) [facility] URIC ACID 2020-08-20 15:02:00 Hari Carlin [facility] Plan of Care Planned Activity Planned [...] Medica l Center colon (procedure) [code = 074198669] Future Scheduled 2018-11-[address] [facility] - Test 00:00:00 malignant neoplasm of [facility] Center colon (procedure) [code = 809022123] Future Scheduled 2018-11-[address] [facility] - Test 00:00:00 malignant neoplasm of [facility] Center colon (procedure) [code = 082666325] Future Scheduled 2017-10-[address] [facility] kes - Test 00:00:00 measurement Medical Center (procedure) [code = 20520600] Future Scheduled 2017-10-[address] [facility] - Test 00:00:00 measurement Medical Center (procedure) [code = 23689330] Future Scheduled 2017-10-[address] [facility] - Test 00:00:00 measurement Medical Center (procedure) [code = 13306786] Future Scheduled 2010 SHINGLES VACCINES (1 [facility] [...] Test 00:00:00 (procedure) [code = Medical Center 98178611] Future Scheduled [address] [facility] - Test 00:00:00 (procedure) [code = [facility] 97918326] Future Scheduled [address] [facility] - Test 00:00:00 (procedure) [code = [facility] 69665093] Future Scheduled [address] [facility] - Test 00:00:00 [facility] cervix (procedure) [code = 032471088] Future Scheduled [address] [facility] - Test 00:00:00 [facility] cervix (procedure) [code = 389498660] Future Scheduled [address] [facility] - Test 00:00:00 [facility] cervix (procedure) [code = 645374901] Future Scheduled 1979 DTAP/TDAP/TD VACCINES CH I [...] 00:00:00 examination Medical Center (regime/therapy) [code = 570733059] Future Scheduled 1970 Urine screening [facility] Test 00:00:00 protein (procedure) Medical Center [code = 902982908] Future Scheduled 1970 DIABETIC EYE EXAM [facility] - Test 00:00:00 [code = DIABETIC EYE Medical Center EXAM] Future Scheduled [address] [facility] - Test 00:00:00 examination Medical Center (regime/therapy) [code = 264692852] Future Scheduled 1970 Urine screening [facility] - Test 00:00:00 protein (procedure) Medical Center [code = 518782192] Future Scheduled 1970 DIABETIC EYE EXAM [facility] - Test 00:00:00 [code = DIABETIC EYE Medical Center EXAM] Future Scheduled [address] [facility] - Test 00:00:00 examination Medical Center (regime/therapy) [code = 712376670] Future Scheduled 1970 Urine screening [facility] - Test 00:00:00 protein (procedure) Medical Center [code = 734795181] Future Scheduled [address] [facility] [...] Medica l Center breast (procedure) [code = 983558790] Future Scheduled [address] [facility] - Test 00:00:00 malignant neoplasm of [facility]ica [facility] Center breast (procedure) [code = 683276785] Future Scheduled [address] - Test 00:00:00 malignant neoplasm of Medica Center breast (procedure) [code = 926564102] Encounters Start End Encounter Admission Attending Care Care Encounter Source Date/Time Date/Time Type Type Clinicians Facility Department ID 2020-12-24 Inpatient ER LOIDA TEJADA Inter Rad [id number] [facility] 00:09:17 VANDANA 2020-11-21 Outpatient SYSTEM, MDA JUAN [id number] 11:08:21 PROVIDER Holland o lashonda 2020-11-02 Inpatient EL MUNIZ, MDA MDA [id number] 23:20:41 GAURAV And erso R n 2020-11-02 Inpatient EL MUNIZ, MDA MDA [id number] 23:20:37 GAURAV And erso R n 2020-10-28 [facility] [id number] [facility] [place] [facility] 00:00:00 Encounter [facility] 2020-10-17 Outpatient SYSTEM, MDA JUAN [id number] 12:21:12 PROVIDER Holland o lashonda 2021-03-06 2021-03-06 Outpatient EL NICK, MDA MDA [id number] 13:20:00 23:59:00 KRYSTA Sandra so lashonda 2021-03-06 2021-03-06 Outpatient EL ASAF, MDA MDA [id number] 12:54:39 13:19:00 CLAUDIA Lino o lashonda 2021-03-06 2021-03-06 Outpatient EL MUNIZ, MDA MDA [id number] 09:00:00 12:53:00 GAURAV Ferreira derso R n 2021-03-06 2021-03-06 Outpatient EL MUNIZ, MDA MDA [id number] 10:05:13 11:24:37 GAURAV Ferreira derso R n 2021-03-02 2021-03-02 Outpatient EL ASAF, MDA MDA [id number] 11:00:00 23:59:00 CLAUDIA Lino o lashonda 2021-03-01 2021-03-01 Outpatient EL ASAF, MDA MDA [id number] 11:57:34 12:10:03 CLAUDIA gallego 2021-03-01 2021-03-01 Outpatient EL MUNIZ, MDA MDA [id number] MD 12:08:46 12:08:46 GAURAV Ferreira derso R n 2021-02-20 2021-02-20 Outpatient EL MUNIZ, MDA MDA [id number] MD 12:57:43 17:49:39 GAURAV Ferreira derso R n 2021-02-16 2021-02-16 Outpatient EL MUNIZ, MDA MDA [id number] MD 08:46:05 08:46:05 GAURAV Ferreira derso R n 2021-02-16 2021-02-16 Outpatient EL MUNIZ, MDA MDA [id number] MD 08:46:01 08:46:01 GAURAV Ferreira derso R n 2021-02-14 2021-02-14 Outpatient EL NICK, MDA MDA [id number] MD 16:13:03 16:13:03 KRYSTA Sandra so n 2021-02-14 2021-02-14 Outpatient EL NICK, MDA MDA [id number] 16:11:50 16:11:50 KRYSTASTEPH Sandra so n 2020-10-28 2020-11-03 Inpatient UR MUNIZ, MDA Sarcoma [id number] 08:47:00 13:55:00 CLAYCHAS Ferreira derso R n 2020-11-03 2020-11-03 Inpatient EL MAYE, MDA MDA [id number] 08:41:05 09:10:15 BIJU gallego 2020-11-02 2020-11-02 Inpatient EL MUNIZ, MDA MDA [id number] 22:10:35 22:18:01 CLAYCHAS Ferreira derso R n 2020-11-02 2020-11-02 Inpatient EL MAYE, MDA MDA [id number] MD 17:03:33 19:31:59 BIJU gallego 2020-11-02 2020-11-02 Inpatient EL MUNIZ, MDA MDA [id number] 08:16:22 08:26:03 NAZARIOCANDELARIO Ferreira derso R n 2020-10-31 2020-10-31 Inpatient EL STEFANO, MDA MDA [id number] 15:19:32 21:47:10 BAL gallego 2020-10-30 2020-10-30 Inpatient EL MUNIZ, MDA MDA [id number] MD 04:31:13 04:49:40 GAURAV Melendez n 2020-10-29 2020-10-29 Inpatient EL STEFANO, MDA MDA [id number] MD 18:24:24 19:40:21 BAL gallego 2020-10-29 2020-10-29 Inpatient EL SCOTT, MDA MDA [id number] MD 18:24:28 19:36:56 SUE gallego 2020-10-29 2020-10-29 Inpatient EL SCOTT, MDA MDA [id number] MD 10:00:26 10:24:36 SUE gallego 2020-10-28 2020-10-28 Inpatient EL SCOTT, MDA MDA [id number] MD 22:30:59 22:52:26 SUE gallego 2020-10-28 2020-10-28 Emergency EL KATARINA, MDA MDA [id number] MD 10:57:00 11:46:41 BRENDAN gallego 2020-10-14 2020-10-23 Inpatient ER SCOTT, MDA [facility]coma [id number] MD 16:40:00 16:38:00 SUE gallego 2020-10-21 2020-10-21 Inpatient [facility], MDA MDA [id number] MD 18:46:01 19:27:32 BOB gallego 2020-10-21 2020-10-21 Inpatient [facility], MDA MDA [id number] 14:16:27 14:16:55 BOB gallego 2020-10-20 2020-10-20 Inpatient [facility], MDA MDA [id number] MD 20:10:36 20:13:24 BOB gallego 2020-10-17 2020-10-17 Inpatient EL MAYE, MDA MDA [id number] MD 15:00:32 15:42:49 BIJU gallego 2020-10-16 2020-10-16 Inpatient [facility], MDA MDA [id number] MD 09:18:38 09:49:47 BOB gallego 2020-10-15 2020-10-15 Inpatient THEA RAPP JUAN MARTINEZ [id number] 11:01:50 11:06:18 BOB gallego 2020-10-14 2020-10-14 Emergency THEA GALVEZ MDA JUAN [id number] 19:53:40 20:54:56 ALEXYS gallego 2020-10-14 2020-10-14 Emergency STEVEN PORTER JUAN [facility] [id number] 17:59:26 17:59:31 Holland gallego 2020-08-20 2020-09-06 [facility] ER Vandana Tejada [facility] [id number] 13:34:00 17:17:00 Encounter Hari Carlin [facility] Bryant Willis 2020-08-20 2020-08-[address] [facility] [id number] [facility] 00:00:00 [facility] Results Test Description Test Time Test Comments Results Result Comments Source Tissue Exam 2020-09-14 10:56:00 Test Item Value Reference Range Interpretation Comme nts Case Report (test code = 104) Surgical Pathology Report Case: [id number] Authorizing Provider: Vandana Tejada MD Collected: 08/31/2020 06:37 PM Ordering Location: [address] Received: 09/01/2020 08:13 AM Service Pathologist: Thien Radford MD Specimen: Groin, Left, left iliopsoas mass biopsy ADDENDUM (test code = 3381) m3qveOZmSVMtcCB2IzAnTUEfu8hgb5QatRFzfND uHLrerZDsgjTrye67eBE3yO96QK3gNOFoTvO3KS DvjjL8Csw7WPOrHIUwzSCzJ157u4wrf7mlwrXti YG5yRtlGRHvVYHkCCsjLPDyVxGyOT7ozR7srSjp zB8qsTSbnQGpiFJseBNmbDWlUFYqraIqnl4fIRO yfrJhjT4hdyYCZMTzLR1wchE7jeZ1LVI7dDHakb OzpCuxh3XzWqCcHDyskqW4rvHeUGJdk4SrcXp4A TMtv8AqE1CaVZ0vXZbdfCItnnWvvbLgKEZtotZz As6aMOiboaQ8qV1rLZShSELmSKVek21ofyqnKE8 RZROrwB4yvSdwrACaG8miYNHrjCcwWXuJUEHzKB HWYZK3MUAzkoDqZ6XWZYVzWXVvz5laJgPrBKZel fPocN6bKRfdIrdjN3cxGuzhzOGbjxVomWOjlJFo OZUjfeqhyhorGhRmfHSpITB3mlD4JYUmGLtlZNI qoVGlDATeQXJmDV5ohUIooEdrTMPzlBnsMQWmPX ZzezIpQKSkb67oqGMqhNFlgRc3z9zhZFYaMOL0e iHnJJLvGPCeVNPkDLUedEYlMB3hSLTnTXRwlyGy zJYkJiXTjKBaRRWwfgQjfn1gvjJjRQydoJFrzfL viHAyaNKsiFv4a7DkNdAfiXe9mdGmEXObGLGwac PvCGbhl6V7ZPMdiNizcnZlaTOjII0oWRGoDUOeU aAbGZVjl8Opkp9zxROuJKKidzEEegCoVNipYWK5 bRWxqaE5kBHmGN7vFDEvYIDpJWGoq29jfRGqlJ8 yNUTukl4usaL2RQHoj6qqnwYaUClvMCKxux6sBE QkaC4lCtBjlWBhlMmcBE20VfvwAEUwxLFkQHGes QRfM2YsYEE8iOzwRRJkNJQeZkSknvQsBTLmLX1F SZHqUZNlo33iYZOqfeYhu78lpHh3IINpr58qRYF oSGUbJDSlQXZrBEWfpX0rzGO1jUqjWKKpaQipgg 9viFIpDYJhhxILlaCkCECnaKKzbM9pfmTyuQRcZ KMhJAz0VYCuFwALjY0mXPSdKA6vT5gmFJphcxsx YXJ9 DIAGNOSIS (test code = 3220) p1umcGWjIOXot9hvEBSwdYRzJrOaDpXfMbBnVl p cdWMxIHtccnRmMVxlcGljOTIwMlxhbnNpXHNwbH GbN5SxbquzTSuuKC6sIU5huNpzyMVisKSmORKgP qFcw7ckx105qKGfr7epQCWAtwywqXi7iDrmR74w e8M4IrezU96hgLVeEAtmwBXksmanrdGoCYIKUpF iCVVODWYFHDtAVV6SZ77RKcGKCMIWANQJPF2KA3 b6ARUxyxEVANmAHUnDPXUXDJrzFjLPYZtZH10yA AWsmkVHZQ8VBNZKUzMOBgKNZWUKUZmSIlWWQK3D OM9EEKfAGBWMB3IPWA7QIDoIII4LZxfyIYFnXKI MKY2QNT9jVsVCV4CAIVOAXCKXBXgWQf8cMKVxav 64VEV8OgLwr4T3CFH2NNFyUUSyn4hwFQGpyIOsT jTuIlIgGbKzZdpnoHKcBJVjEfDku0psk521sFIl h8pyKLQrDpJ5aQVkSTIreNXfW326LUSfJXljd6e on3VdDOZhqKDvh6J2DOEMixhfbIx1vYzkA87il3 W4KrmjY8phXAStTGAxO7LgIT7xRZZhAkr3VZP4I ZK7YWNwZUJrG4DxDM7cQNVtjTNfCXz9e7pddPud EZPlSCG2o4rfHOkkdyKsTX2fwh9ckKf5r1ggyhX iHITeVMRhjWKRDHUoI0YgfCcdUg6tqEt9iDxoVa inCTG9Maw1OC6oug77vfq9pBxoMYRnhzqrRjS2M AjsTOUlcvnaHJo3TKcqVTUylZJ5PCYzjPEkQ2Lt YSAzPM2mfre4GZX3EVmhCGCuLqG0RIQsgKOuXFZ iqCiePDjvh948BRX4RrFnZS3fR7Ojg2N5jS4utA CwRPPyuERnWrTsNHGhci2nkADsZMlqv9DpEXJ4r fT4wJPpyBVnDMOwQlT0ILpiOA1wyy44SFThPJK8 yw9nyHPxkPdbstPeeYRlRYstN3IjFAChw397RQD qC6NgQAHcv1T5wcMwGqIcQGPgzZK9beJ1RHBtCM 8oxtffx7awLEceOQocXESplxB6dcI8AWHszJIoE 4NseR4fYGCdAE1uvzpvz2exYCD8BNotBRVxART5 DnPyVJUin7Dongb0ArPkm1HxsWFlSXpyS66yb88 2XELcrqCgP7gjwUArpmrauPNjtkqoKMaqloF0DR FfPSyvurxeTUTqQDvzJ3buVcZbDEFwfIlzXEbmb 2FzRFFjXTVsYbQabHKgKYPxBoc8REGaeWZuWFWh UdSyV1mjrvjlXoNPQIKdb8skL1hyyZGEzRQwD4R jHLsguwHpMXbvEVoaACZpYMH1QG09RFctMWYfwr 19 CPT Code(s) (test code = 3357) f8qedOZhJBRtzNU7WcEjEUTfk6rsa3CpyYVu cGF wDZimfXMnaeOban75zOK2qI71KT1yPAYoRcZ7WM ZcuzL1Quz3TWYsSUBykVZzB616n1gfl1hknoOhf VA0eXugZRRvRFUaKTmrNXEtNoGrQZblYDWrAKz2 NfFaTLV7TOJ3UXu0OHJtoh3= CLINICAL HISTORY (test code = 3356) a7nypLPgDFIadOY6ZyHjTOZyd1whl3M sdHBncGF lJNuorVQkgzQkpj55jOH8oD35WI5fFBQmSfS4SW VkkoW8Gwt7FLIyOIHqfMSgG673c9yej5xclmFju KR0aOmmXYTuLCNkNUavEGDbFnBcLNJtbWSisw7i vgLhuJS1O1ekvV5jd00owuGqOCRiHNP2WoHauVT 7EdEemEZcWSRdUWjdERC1 SPECIMEN SOURCE (test code = 3377) a5sahPUyUHVszGV4MzJtMPOxl3ncc0Wa dHBncGF xSTzxrKTxchHsug36eMV4dA80BE2jVVShVaS3WE UfwrL3Zzm9QTAwYSMamPThV292d2ciu5zqmbMqn JO3pNjrRIPsMEWuGOijNVKgUlSiXIFtvPDnmh0w cr0vyYozxHPoYPPhhEArpZ== GROSS DESCRIPTION (test code = 3366) p1widZIoXFGjjGBeVnZuSYKhFQIbq6 lcZGVmbGF kDzHxUrSrPmJcXfqlrWEcMKJbNoRku4nqw598wY Aud3glHDDBjyiomFs6c1lhNKWuEsW2vGVnMQoxF 1fjeuCdfOSbIETjZAt1kZ59OWMjmZ3rlGRjTNem laBgKfZ3AXbuXPQeMuG8LXHwrEMeZKReM1fuCYZ rBTfwQXStOXnrxYDuMKY4nJqvm7H8rVBgzQPmhL veXjQwNdDdEQIDm6ZbUDx4bAzoQ5WoVZHxOgP3x AKvLMPuUQjnODMyWQBhscC5xC18OMxwneG9mXNe l4Voi86ye405qM8zqUHaEAQ3EBMqEHZwpVPrZUF cOSQ4ALUbiHMuG9b6GkIovRUoI0B8AlCfnHTkZ8 P1NyJjhUIgR9U4McSobXChAEDorNShZy2tvQNyr ROgqw1xtz67JXO5e7MqfOijMTR3YDR9BvCgYp1c nZInDSBsIVTetZSlGJEsXF7ybBXdETAmyK4ucli kOYGtGwUosdvyFGNjsPrlkjHkFf9axVrjHSH3RM jyD7libW2xXaO3JSkyP3hifE9qVJo1GMkkwRM6T FMgdV1lGZ9nmmdti7gtKaWiBS3htxjbw1keCbFg SP1pdfl3d1trMnHsHW6wqrmau2nlSsNfMDimBYT oudzlZGMhr7SfvzkmQTMpv2SrX6AbcNxhE97ldW pcO41cSCNewYaywU8mtVcycP7nDkVoGbGlJSihW XJkXHBsYWluXGYxXGZzMjBcbGFuZzEwMzNcaGlj oEssUJvmUrUcRKGtRSpnQ7goNkYePqTvQNVVMgG BBHGjzIJnYFIrexHif8AfHVmadvUqFPSlfXLlKC mcdBrgoYzyYKMdhWpgnmGuP4O6fdNiXU3dLZKdU HGeS7PsSNWfC83oJKVacP9aVBPiUB4pYGAfen2f eyynyPEkzPGxIO9fCQYregKeg0QnPE8rCV81uSO ciNmkDVygANlmz5yfhNTms99gxWE3vHJjePBiN6 9dQOIrbjZiC3lhXkWcYzRfTA8iKZGmALouQCzfd ms5vACwwWPzvVQ2GVVziD2goT98lwUpqbETUV4n fEaeNHpysQ0hOPDcMCcyRIPuX8CrzH9pXB8CVie hSEMcWEBZO4AxW51wlOCheT== MICROSCOPIC DESCRIPTION (test code = k3bksXDfPABdiGN1DkEbONDbl8vpo6 BsdHBncGF 3371) dEPodbCSyjcGhca81xZV2nB49LE9zHWUbVvJ3RW MswxW9Jzh6VKXbFKFcuUYlL930k4qyw1jlpfGcr MI9pEpiNCQvFNOuOBieNUBxDsGxTJHRAm6CAYVP XHBhcn0= SPECIAL STUDIES (test code = 3376) o3pibKUcYGJjkEZ7PnVrYUEnt3qfq4Ta dHBncGF kPEcvqSNsiuAugl76qOO7fC47LR1gRVVtZsA2VK CxieY7Auc0HAPeYNVelASpQ598EOKeZOAjwEafy is1tW65QQZgiX4mcTKtUDw3XJCrkeAsjZozoS9k HaTjWiTgKeTGjOSghC43HXIxyyY5RYYvo54xm6Z llWjkhdWtSUAjLYgrJ0n5HVVlMZDmLSN9o3Ndy4 QpyD3spL0dbBmovK9tdZPehFJ4ilqst6Nwj8SoB 9zkqLMarHJoghQeNNYjchWYVA9IUoZVED2rG3SS HTFCBnttXsUiAGxzOKNGCGxFGXBTDHZ8NONGLFN rXOXMBTweAUIiQ59kwAJmiNYBrWheXMLhGBcpdG arWZA1VZCPzv9ys6XgBHAwqr53kdFjn4SjaBv1F RJlp246ke3tfrG6FRHkMDU0DKi3AKRjVDTtuN4q AiO4lJYeHCNkWAX8ADQ2BOVtg3J4FB1pVHQqOEJ gSSDyltZjx6hgz3foSOYwGFE0lrVmjE4aS1CmVF Ynm2FltEkrREZsxIdihiHlMBPlwJKcFIGkxN65I KLmaMUwpVByVQEfFKY6SOrbfS1qRyQAcqQorf5y jKYpd7RloTa9UTPrstHfuaOeEJMolwQhS83onMS mhSUmv7ffhwWzvjOrbHMiqHRiMXGqGHW0ZYm0FW LsLGmnJUVlFGijEJPmNM5nbV5btYfhoN9cnXZxn EO5chftnMRkgL6nL2DcRQIuj9Prxysqg1LqKIUd piMwnd4qRHWcxCNUGQsyv8NiG0AyTOa7s6ZtyUp uWUivWOe5IeArVPWjnBQxnQZWSY37AVGoECVfnB jwkX6yqUGDXQUnmoI4e5W3TNoqSDQnWHf0NNvre eNxTQPwhS6yTASfNJ3qSBf7vgDsNYUes6BrGI7m RVBfkFQiCGQ6BKHvk7GaX4Csx6KjDMVqUOTygu0 wyiOyZrBZnADpECLwmh85ARRaUP2wT7exLYPfLU HwduFxeFPqi9WvZPHvwBJ8tTWzWZ9SOaPDg31cA FIdATMIpiKaCIEqlNrtkVB6wlK2sX2cXzEPtARf OqHKMGleluCuSJFliy7tozZnYKNkBJLse5SywBV gxSAowzNxQ5Gef8QpUJDiac30QCtsvXXgeg07EC 7eV7Lga3TvyT0pQYnkOKSht8NndHCimTEfNHOap 1CuO7imijafCLtqhSKlgI4tDGArFYi3LTMpg1Yj RJAkt2PvBfNoaiPkFMBfIKHeZHUnyR33GTE7wKi whZsxfgLdQL4kTHVvzwLxUGPzUMFopZ9sXMxyyc OgRBJspfJ2f7R1PUuhXMWjhfZxUckxALR5hgPym pL4sWKhS1fotwosSZdfGFFmf2ZtfQ3knZFJtIKd u9DtsSTmvHCChFXwOM6mmlRnZB5hDWY3PQuaDJE JPBFkOUkpVDEvUQW0ITlaHgsiSKY8mgUnKYUpd1 ZcNDjqS4ifE07evNcwwDt5kLLdsBsluJGfnNFpF SLhmnJ6k4U4VBNjc7CeskxcYBMnxd9= Gross assessment was performed at (test [facility] enter, code = 2777) Department of Pathology, [address] [place] [address], Technical component was performed at [facility] er, (test code = 2778) Department of Pathology, [address] [place] [address], Professional component was performed at [facility] enter, (test code = 2779) Department of Pathology, [address] [place] [address], [facility] [id number] 10:56:00 Test Item Value Reference Range Interpretation Comments Case Report (test code Surgical Pathology = 104) Report Case: [id number] Authorizing Provider: Vandana Tejada MD Collected: 08/31/2020 06:37 PM Ordering Location: [address] Received: 09/01/2020 08:13 AM Service Pathologist: Thien Radford MD Specimen: Groin, Left, left iliopsoas mass biopsy ADDENDUM (test code = [id number] 3381) Ntl6hjy1JvyFVofFNcVCtr pWTcpwLblf46mAU6tH72TB 8mZFFuHgS5DEOdfjG5Xdf5 BKEzGZFjaNVqQ351h1syj1 cdefHkdXH0rGebVNIuFZRj BImpLQDxSuRrZP0pkQ0tyE mogK8mwGSrlFPvxXRjeWKx bTOlQCFjfyKxye0qUSSbtf TsmO2hyfVOHBYiUJ1wdcY4 gyM5UEK4hSMhkxRhkZxsv5 EwHxNyADfqvlE4njOjAQHz p1OfpPs0HNVvd1NlF9YkFR 4gVGhleSBhcmUgbmVnYXRp naJiYd1aDRsgpsL0vX6kJC BwYWAcOWFli63ngbbtKV5U ULTmzM9oaHnilYTbA2ixVV FjdGluIChTTUEpLCBNVUM0 MZIjdrMcZ9FBKQKiEYPzp0 awEkKrNTEszbYulG8zELpu EcufQ2qxMsoawCSbiiCdgT FibGUsIHJhbmdpbmcgZnJv mMKiRFE1kiL4GDXbSGyhLA EjrDBxDZIiVKLmAB3epCTw dGljIGNlbGxzIHByZXNlbn TzDXNfa19riTOddKZycMt1 p5nmGJCiNHX2elWcBDLvRH AkIQEeJNVhcOPhNO6eQKCq ZWQgbnVjbGVpLiBUaGVyZS SdzbJntd2tpqIxRMqhzRBs qjKhbLQxxQEozVd1u4BrZa RpkBp0inZxHGQjEOHyygKp OHhbp0K9HCAszTflwaBmyR XgNQ2xVEUgNUJbNuVkMWCt l3Kktm4yvJSyWXLokwOFhv DkOLtpYSN0sZEmfcQ7eXRd RU6oPYAxBTDbJDAoy16yqL JhbD9nVSSfvv6ecoS6GUBo f6mjdjOgBEnwITLndk3oOC JmbH0iMtTwdZMxuGnrVI05 LlxwYXJccGFyIFRoaXMgY2 HgMMK5qEnoHFJpWSEjAyLq vpKgNHTlPQ0TCXQtQPGag8 1gYMBomaLsn85dwFe2SUPu b86fKPGbCUZmKCCkWDLrPL TugJ1mwJB5vIqsIKXwqRyq mu8bpNQiDHBrdcQYysTaJQ AgxGYhzP5cajAdnLIvBPKz WFh0TKMnKyGPfR0fAJDcRS 1lV2xdMDcqdadgYPM0 DIAGNOSIS (test code = g3vuoJGhVLBqs2jxDNYgyC 3220) FuZzEwMzNcZnRuYmpcdWMx IHtccnRmMVxlcGljOTIwMl zeyqXgHRYtdQAqP7Ouoedi WImvJE0cPN6ydNhngOKahY BkBBBhSuZwg7fbd527cPDo y5vyTDWHefucpAx4jGilM9 6np7A3GeimS65fxHDyNUyc bGFpblxmczIwIFBBUlQgQS TJPIWQKIeLFS3OI35BGdHP ITVRMFXSIC4FA4a8KSKbwo BTUElORExFIENFTEwgTkVP RPcXW08vVQAemyQXTJ1CNI BJTlRFUlBSRVRBVElPTiBQ LH2YYQ2ZLYmTPKFAL1CIWE 8OUCjZEN8AEtiaBCBaCUCA HU6WDN5mImILW1ZCNGVRLQ XXGDnZUs7gASSnmi23WLI7 OaHdl3C1PWL0TRHlUVJgq1 lcZGVmbGFuZzEwMzNcZnRu BuwdsVTiEBJfQwOox8iyx8 81hLGlt2haVPXoYoH6bPBp FWCreVYpL888YUHuTFsfv3 lsu5AiMYMeqILsi7R8VLFD gdrftJl6xYpjN79pi0W3Wn wkO1yuBILgYGBqL8BnOA1b IXCfHlg5KUK1SRI5RXAmFA PlP9HyTU3ySSLltXAcIQi2 u2phwYyeKHWmTKL7z7isCQ krynOsJZ4obv3qrUw5y3lb czEgRGVmYXVsdCBQYXJhZ3 YzoZxpDs9byMd9cKpbHewq BVA4Yor0BL5uzl64adj1jY eiXWLxctijWqM2GRunQKJu myerXXt8MWtoUNLaaBK0UX YxnTUzW4QnYSBbXC4akwl3 WHF4GFerDRKiKeC1XWXvqC LtCWNdcFdxFMaxq616LWY4 RyCeYS7wR3Xlv5E1qG3xxW VjWURikERnRfRnZJKbsx2l sFGkRDqbc3CvPVN4hsZ2kQ OzqICzXUFjOlF3RYlwWX9x uw28GQCtKTR6xq6ngWWshJ dlssJrfZRqMRslV1YaDXMc z037HVBzR8YcVWWjj3N1kd GiWfBtYBSxoDM5ylJ9WEVc YG2tqsraw6jrAFvuKAvwRR AxtwY6gwQ0SBNifPToB4Gk zQ9zDDQzXQ0dcqykn7okXA E8GGnzMLKgXMS3AsQfUHHi t2Igngc7YePdc1PyfYNwIH clB12ky018QFAqqxIzA8my bGFpblxwbGFpblxmMFxmcz H8YYGoUEpknplvRJYdGXlv L4uiNgFzTQVcaOikRJslj3 NoXGYxXGZzMjJcdGFiXHRh Unn0QCAftXAlHSVbXiPvW1 whldmsOdDTHCVlj7peG5hx qFKGkTHoM5MsHVczeyYhIF gpBKsjINGdJCL8EH70WBkn XYKxpl09 CPT Code(s) (test code i9fijTRiOVOnzOO4CaTmYR = 3357) Dpu4ozi8EcmYBcxAIcFHfh aYOwtpHbzy89iZQ5lG56WI 0yMVJsKuJ6ZPTtwyC9Nbp6 UXTyWLLlpACjD200q0tgx8 gxgwBekML8bYwaEKCdNMRv YWluXGZzMjAgODgzMDUsID c9AcLpGBN9YCW1QEz5QCRu cn0= CLINICAL HISTORY (test c7maeSZpNQKzpXW3MdPhXI code = 3356) Mai8tzj3PhkCBggMGsDSdc oNCgpvDfxg87zZQ7mM17AL 6oXBFjRqB1ZSHbbnS6Vwh7 BSChPRMieCGqP748w3ntw5 fkayCmvBK5wNehHGTvJMVy YWluXGZzMjAgTGVmdCBncm 1ligTzmWN2U0edgB3az62f onObHNIwKSN7YtIwyHA8Aa EgeCAyIGNtIFxwYXJ9 SPECIMEN SOURCE (test r1ztaKPqIPVwxAU0LfWhIT code = 3377) Wfd1kqz5JsvWNvrAViAMns qOSezbCkcn56wJG5iT07JX 2tMISfAnU1PBWebsY2Pbz8 HPCsZGAhxEBfD147y9evc9 hvtnLsbXA7xFcyEXBrWXEy YWluXGZzMjAgTGVmdCBncm 2qeb2shZqbhSSjUEBgaWUg fQ== GROSS DESCRIPTION (test j9ysyKMkYZWusPPdIiGxYD code = 3366) OzDBUex8fwLGDpyXFyYaVx MzNcZnRuYmpcdWMxXGRlZm Lyj0xmq150bXWrs1gtEVPT wkhqrFh3a3ulKKThIoT2tG HzTZheX2sagvCqgHIuEDZc TAy4mK06PDDpsD2wbILsRM lwpkOrHhE5JAzaHFIwThO2 XUKapQStYOGvB9dbUPCtWM zuFWPhOEzzyJCrBFG1tDtm f0W1gTKkwMKlmBxtFiDsLj BdASFOp9KuYNe4mMtqU1Bs RXUeDfV0vUYbMIHvWBvdLH GnXYKkkcY9nT77NFkadeF1 qOBux5Owe96gh191jC7zjS AyUEB5NXKfBMAilFJtHAQg XAV9WBKajEVkH5p0TeEbfX GsT0F4WhQksYTaV1K6TsMg dALpA1F2JiRksBOsISQxbM ApTf8bsGJoaDEmfz2yxm13 JRS3w0ArpDouNDE8VRR9Qm RuTn3nfXGxMKPcPOJjtDXl PYKyKQ5lzAWhLQJotM0zid xjXHBnYnJkcmhlYWRccGdi mqXcEu1aiEarSEX2XYzjE4 yfiF8qPaM7DIiaQ9jxnK2j XDh3GAazfLI1EEZxnC1lET 9aclojs7lfSiTsAF2uczwu v2gyIkGiJE9zbns5q8jhPm MzEU9zuhfog8hxPiYuKIoo HWWipjrsXHEqt2YoafsjXX Bvr1IgV4OzlKmoM98ncYzc X48jXWDsgGijvE2bbQyoeC 5cZjBcZnMyNFxwYXJkXHBs YWluXGYxXGZzMjBcbGFuZz EwMzNcaGljaFxmMVxkYmNo DDTrTGjiI2twBaNjQgRcST BBLiBSZWNlaXZlZCBpbiBm w2NqDOftezThWOPwzUVlTE dpdGggdGhlIHBhdGllbnRc S5S4ugRwHY5uGPEmPGQtT6 BgVLPeU11nJBKtsE8ePVTd BY2gUVTozo1tpevdxWUqoS VbBJ9nOZOnwaJbe4JgOP7j TZ50qDVweGxrDGpbJPhzp8 cwoRUxb32ijEM9mBXlaARs N91gIUIwnjOfQ4ofFyDeMi WtOL5iHDZfOBvkESdpcnh6 cBDjiUYycQO9XMHpuI4fwT 76elChjhHIZL1kkTmmXFbt yO5bNQMbXJxsVBKyO4ArmH 3lKM9IWcjlVNLyYPZDM3Hv N13hiCUkzF== MICROSCOPIC DESCRIPTION x2rheLJbGPQwmOF5KfHtDD (test code = 3371) Dxm5utk3StbMHzqCQoZFdw mYBaucYjon83pBK6qQ81VD 2rIQDhMiB1LGNoijS4Irr5 YFDqXLInuKTvW302w6tpj2 vikxOxzBR1oFhiUQUuSHXh OXyaNGVuPzFjYBYRAp4RIH VEXHBhcn0= SPECIAL STUDIES (test m7vynOUhAWPnlJO7FjExJT code = 3376) Big5frh2BwvNQnyQPxZJou eUDfapBirt48uZA8iN88UU 5aWRNoCsP5BSHhuoW1Rhv8 YPNdWPQgnIZcX424EMEbGT JthMrqtow9uS32JJGwxV9i xSWhILp9WNUsusQloXdcrU 9dFlMlPzQyCqJHdSVktF61 RDImouD5XJVzu55yq3SedV unhrOqTDMdRHosE2f2GRGe PGIfACK8y6Hmu2ZbtG4eoP 5axSfacU3dyLCouHM8njsf x6Tne1CmR4cctPOjuQTqvm XtVBGlbmQQHR0NQjWHPK1o M7FYCPZZJxqcWjJjCAskZO NQWBwMHQIEHKC4DZEQMSQt CLJNDUcgZHGfS49kxMWvvR BTbGlkZXMgRXhhbWluZWQ6 RFETuz0pt6YsDNAblh95ld Tqv8IovCg9NQGnz460fx3i yaY2KDGjPAA2DFd0OSZuQR BtsP2gZtX7kUMiKIUuXYY5 DRM6UNAke5C8ZP5oQGVtMW QvJQJpcbIob6ncm8ubFJFw CIN6npUrhB3oO7RkKTQgf9 YgdGhlIHBhdGllbnRzIHNh nBQaJTJxhT90ICWdcGBydN HwAORgURQ1ODvpyG4uMtXJ xgAphf5iqFHyx3XkkEd4ZO YbohYkylXjUHDfikCcV36u uQXhtQTvt0zfmvUwjeLszI LgzFZoDPRtDLR0ENl9FSTz DIxwJXTyIFcbSZWfEC7kiR 6nkUpluH4buMYjeUL4lkzf mZOvqL6nM9QrEIQmg8Opnf tee6DdWIPystQpso9nGPXg mMIPXCjsz9LjL1QrTPt1w7 AweMakHFspIIy9TdYtYEQx pTXdlHGZNZ99VARjNYAqtD kvaC3xsPAJLUUvocT0v2D5 BMedLEOmEYv0DFlkuuPeKY HpvZ8jCRFpPH9dCEm4xsNj JGKwj1HzJV9rREPwaDMbIQ Y0IIQqr6RnG3Tut8JpPBQh HDAwio2zpkPaOeTRqPGwNF Amtv90VFYkFX1wO6qgCCBq UHCifeRiuOSlq1TpDOBdbI G7gERdUO7FEgGGu89hHDRw KDLMobDdLQTzfGunaJO3hc M7fY8pInFPySGqHjQZABrs bgBdBTWutb6ukaWlLYEwOQ Tbg4EsoNYxvCKgvlZgA3Rn r7CtUALepd41OCefvPBkkq 07TQ4xC6Vec4KxfO5iTEhj WLSai2RfvRKeyJEsUXSct4 ZbG2gmkmucPXmreTOcfY2k AMSfLTn5ENEqy7NdLUOdy1 QgYmUgcmVnYXJkZWQgYXMg aD34AQT7vXkwnErlcvMlGD 2jGDFeixOjMMYyFPSxiA5d HWctimSiQGVnnuC5x3L9NE qeZDVucgSdFrjjOFX5elNw poA2qJPmC0xtvokwQBduFN Qsr8DgwY8ceMBQkKKyr9Dt pDPqqVVPjCStXI3hckOcBN 7hABL9WJwfPSGFYZPuZFuj WJJqHWI1ORdeAncqKKE0qj AgBRSho1PwKDxgR8nbR02c qEingSo7qSZmrJuedMQqnJ ViDKXpssI6a4S0ZZTnn8Ka bmcuXHBhcn0= Gross assessment was [facility] performed at ([facility], = 2777) Department of Pathology, [address] [place] [address], Technical component was [facility] performed at ([facility], = 2778) Department of Pathology, [address] [place], [place] [id number], Professional component [facility] was performed at ([facility], code = 2779) Department of Pathology, [address] [place], [place] [address], [facility] [id number] 10:56:00 Test Item Value Reference Range Interpretation Comments Case Report (test code Surgical Pathology = 104) Report Case: [id number] Authorizing Provider: Vandana Tejada MD Collected: 08/31/2020 06:37 PM Ordering Location: [address] Received: 09/01/2020 08:13 AM Service Pathologist: Thien Radford MD Specimen: Groin, Left, left iliopsoas mass biopsy ADDENDUM (test code = k3tfuQXaSWChdGV8DbMvQK 3381) Ywp8eqa1IgdCVsdARqZCuc kTVubsZeqq55dBJ4qU85LC 6tPFIrFfF7ZRIenyE7Uih1 KAFjUSZmoGEsN214y3brt1 qatpKlmFS4mVjqEZDvFXJu SPfyFSTpXcAeRH0teO0srS gxfA0epAMogMOzbUDvvPWx aNGzFZGvlpOsvy3qWTVfgl VuyP8hxtYHKBHjDT8ovcI4 gtH9XRK1sHTixtLapNdxk2 ExQqEfXTzoayQ8ecOgVTNg s7PfzGy0IJFgi4MiM7FqRG 4gVGhleSBhcmUgbmVnYXRp woEtHn8eQOjtbbG4iS4cIO ZfWUAvAOCxx79ciatbZF0X MHQrhB7jhZjkpBYcD5dlMF FjdGluIChTTUEpLCBNVUM0 IZQmenRiG7FKOWFaQHYdy9 lwKcYaHDNavcQaoM7vYNjt RywzK0ohVxewdJKydmZuiP FibGUsIHJhbmdpbmcgZnJv zFWiBES9peH3CHCwHQayRA UwqMIyUCRaLTUzFD0paKEj dGljIGNlbGxzIHByZXNlbn McNHWto21ucHPljZXsjGx7 j0xaOYCtFKB5yoPsYCYsKZ DuRXQsRTTzyQSnRH7uRRKv ZWQgbnVjbGVpLiBUaGVyZS XlqoVllr1pvmUdTLoooZVp opXmdVYphQHfrFd5u4WjVz TmvYd9vlPsYPVkPRBkqeGi IEclj8D8RFUysFrykxHpcV HrAV2iMCOwEKJxExRjWWYz h4Mzno8vdCFhKOVglbRMcm XtZZnmXKD3bJEfodS5iWKb RJ0tOOMyERByYXAos74kyD VpsN6kHHVtku9hzzC7SLGx j1hwguMwGIwqEHOzid3iVN JljE2xFnDhpUFagWetIO69 LlxwYXJccGFyIFRoaXMgY2 EfWCB1dEvrNURgWAJgEfNw ouCtBEJmRE2RGHYkPQDvd2 3iEBQjdiHjk04kwCi5JGEx g82aXYBqXEDjNMXyVJJyNB MftH2tbXW8bQqkVZXyqCgx xx8hiMWsGYZmlgIJxzExLU RlmQMegV8hrjBnaDQoUOJp JLp7LNJcNuUEoK2pRRUeZY 4mF4odIRmwekmgAQO6 DIAGNOSIS (test code = r7fceFDnJCSiq8kdLMRoeE 3220) FuZzEwMzNcZnRuYmpcdWMx IHtccnRmMVxlcGljOTIwMl lnkmNmAYDceKFbA6Rrzmcy AXbrEV3hIP9krGfrlKDraO YiBHLtTrWde2lqg450lOMu c2hzNLKUtjmqvHa6vDxkL8 6gs6D6McqiD77kwDMuXLmf bGFpblxmczIwIFBBUlQgQS JPCSCPYIlMBH7NB91WOcFR PTHDIFLSZL3IS3y4SWIaiv BTUElORExFIENFTEwgTkVP HSnSP63lYADvnnWNZA1VIP BJTlRFUlBSRVRBVElPTiBQ DX6KXE1JOThWBKZQC0XEBM 0NDKcODJ8FVjybASWsRFGH QT1NYN4xHsDVQ4VWUXWPBH RFPRxZZl2dGSUfom92JTE2 HxNlr9C8ZRE1SOBkXAIud3 lcZGVmbGFuZzEwMzNcZnRu JdugcOJaASZcLwYjg3pvb5 88hSJdy8kzWZSiIjA2fGKr HHKcrUOdX821ANErXCtrp7 ril1LiBRQjhKNeq5G6SLLP tzafeNo9bByoJ17zk9H0Wz fgR8eyXXGwOTHzT5JfFQ1k QQMnTyh6FUF0APZ7BQFiNU WkT2LlRG2nDUEgbTUzBRx2 t3dxfAxuWLPkUVO8w1hzMU bskkHhNA4coo4ujAv2g3hp czEgRGVmYXVsdCBQYXJhZ3 GmjOoiFp7obOo9iReoKyel XKV4Jiy1AK4cgq01bsi9tI irJGKhcbzdDiD3QJvrURTl simhFXj7HLzzBBScmRC9VG GyrQCmJ2ZyLESkHJ2crzd2 XKX4BAhxYUAeRvG8WZStoQ SeEDDvlFwcRDslt235QRQ5 ErTgUN5vG5Tjy7V9fL6gwT ImMYJenKYiTxUoCETfqo2k dFLaIXnwp5VlMRF5nuT9aQ ZjcERdHFJgPkX3DDyiOP7b we86GZFdUWX9xe7zbTWmcU podtKnaUSzIOptW4QyILAz u584AFAmH1QsEPCcl2I1uf RzGuQeTHRplGY7zbL4DZTe XQ1nklvry8llZKasSVxzFO WnwaP2sfT7YIZstFKuG7Nl xG9uSNDtAO1qlkybj0hsEK Y9JWkbWOUmWYB7TwHuKPLb m0Kyxvx5ApQhh2UfjIMxWB nyO20at465XUItwhSmZ9ae bGFpblxwbGFpblxmMFxmcz H3DIWkFWvqpucjPODjEIpy I1kdFkKkVDZpsOjnXTfla1 NoXGYxXGZzMjJcdGFiXHRh Hbl1IGXeuTSkAVYrBjChG2 viswjkRxYMSTPkz0blI0xc cABEuQKlB8AiRBvwiqIbUL dvHYwaMFUiXRW3HI61PUhd QWIhkv89 CPT Code(s) (test code k4vpcKQcLANdtSR6LeTlLX = 3357) Tht8gon8NhgCAquWKfDTbi wAVpnzGxez79cUC3iM40IR 3iPATlLdN6SBFgapK7Igk6 IMZhCNLgeSNqU044l6jfz0 ckitPpsYA6xEntQVHhSXFg YWluXGZzMjAgODgzMDUsID m9OtAkOVX2NEU8NGz2QSUa cn0= CLINICAL HISTORY (test j6ggfKUoGGXumOL0WzEoQS code = 3356) Ofl2ysy7GmjFWwdRWmVBoo dKQyecOqur28fDO8cD59FT 7aEVNiEsN3XOOtyvF0Kdp4 DLCxGUBcwSPlE863s0ljc0 gnixNwtIG1fKusSGQtWGXx YWluXGZzMjAgTGVmdCBncm 0mnzYqcNA3W8pugA7wi15t cxCqCIMiTGA1MbPjtQW1Hy EgeCAyIGNtIFxwYXJ9 SPECIMEN SOURCE (test t4kojNGzNEAhhAU7QcOgKG code = 3377) Mwf1qou6WvgQVmfAMiGYrx yQKukuWxwy19sBF2nP54QB 1yPEPaXsO5ZOXjbuB7Ohm9 OAEeEJGbfBYdI470d4gvr0 aifqMgqOU1mMnnYHSzVYJr YWluXGZzMjAgTGVmdCBncm 0xfq6pqMzbuEGeLMFcaXCv fQ== GROSS DESCRIPTION (test w9qtmQShYGNhlSLiEwGcAG code = 3366) IjYWGxf8vsKIVqrSYbWqEz MzNcZnRuYmpcdWMxXGRlZm Mwl6nen358lINdz0teHDZF agyvaHl9z3prDWDgXtX2xZ GwERsuV2qywyYvsXLuNJOx RWm3tK47HWIvqZ6szQPoON fxuiLuNaF4TEcqIRKjJpC8 SFYgzTAlABYiO5kfBWYbFJ dyUQRpSHdolRYlTLR0wEct w7O3uYPhoCGwxVdkDbZmLq ZzAUDJj1JkEDo9aHgzQ9Kb NJWbXjY7tRJkBYWgCMkuCT IbGIHlrbX7pD28LCiomiK3 oUVxg7Hud19dl251hD5hsQ FfLDB3NABuUYMugETrFCKj UAX2TBPftJGdN2l2QpGrhQ YxV1O6RoRzcMBhZ7Y5XnMy bCKbC5P7YxMxpEPaFJQloQ AeOq6geQMndYQwxb1wen45 LNW8k4JshKnjEZK8ZHK1Na GbNg8ehNWgGZCyGZGmeHLd RVOmCD4nwMXhXPUzeU6jna xjXHBnYnJkcmhlYWRccGdi ukZpPz5dtRmrEJN4KLegZ6 fqwG3gTxG4FFssX8odwJ5d KJx1LWcbxCC9GFInbZ4tTU 7qsekix7lxKyVhXA6nneba l9aaXfPjWW7srds6x1obRk ZkEG4lqvvfk8awAoRaTUyk JDXgytihJJFud8TanspiUT Ljq5FeM7PtbKihO00poExr N80zWEWhiXrgcI4xcTaiyW 5cZjBcZnMyNFxwYXJkXHBs YWluXGYxXGZzMjBcbGFuZz EwMzNcaGljaFxmMVxkYmNo MGZgHUqhG7afSoIrAsNkOZ BBLiBSZWNlaXZlZCBpbiBm l3JkNPyyomEcEWHxgBXyAX dpdGggdGhlIHBhdGllbnRc X1M3gjFwGZ6kQQTgEBVqE6 PyYSKyM29sJCMtwZ2jMOJv VX0pBUCudw5dwjqspYSiiH WxDY1zJZPfqlVmx3AgGK0a XE56kEPncRtkBNtpCWeox1 zffKAtc26gwPP5iEMjoTDa L15cECVzlrNhU2blFhRgCp ElOT4cUDRoEGxuCDqfzch7 sBMnaSIuzNQ1KCCraQ2mmN 00afWlhpQDMQ6ouCjzINai gF7uHWHxKRbnPDTaO1FpkH 2iUY1ZLhnnACTiTROCQ2Bh M14ntOPdqZ== MICROSCOPIC DESCRIPTION z5dnpCKcOORiaFM4OtSxIY (test code = 3371) Hpu3ugv2MmsJPkhYThTMca gQFbzjApji92hNK7eQ83ZK 3jSBWcYxU0TOHfsrW3Xff3 SFEoYMOqgSKmS298v2mdb4 pqtkYumDN8tLrjOUCdEZNz ZWkzYZReUrXqTIQFUf7FMS VEXHBhcn0= SPECIAL STUDIES (test r1fneNGmSHUpcSV7YxYjUV code = 3376) Elq8ulw6GpgUBlkTSvFPgd uRPxxbVijr09yBG8hP21VR 8uHAVjDeL6RSVmtjU0Oek3 JEUsCLJywJWcB527MWPyGA MmlWwcmkz4eP51WXKexT5l iFLyATy9PLLyukXhcEomcG 3nVeJaJdDiIlPKzXElgK67 QUViwgV8EQZnb91ml2XgpU vpvaWhOKArHExmU5i1INOi YQMpZWX4c3Hqz2CeqV4ehH 7zdUeapD5akSCjvJT1miui h3Krj8LvI6lvwXMfqLSsgt DpUWHirrBJXS1ODcDDPA4g N9OXSSDPPviaQqXwSQrsAI VXOZxGQQABNZB0QLJMGMOl WEUPDUavABHyT12ksIYotN BTbGlkZXMgRXhhbWluZWQ6 OWAPuj8bd2MpSUVxhl80uc Nfn5VlwJg4HVAyy799cp4s fuS8HRNcSEC1NLh7LGHgNL XdhM5oMyN0uAQqPBTeDXB5 ISH3TOHky7F4DM5dDQVaPR QsXWXjijTmo2rju5fjZMFi HGR6liWiaB9kX9BjJRGqk7 YgdGhlIHBhdGllbnRzIHNh xXDtLUCvmL74HBUinLNysK GxJIFzVYK5IJjjoM6zYxFL lhZrqm0cxOWsh3GpmNw0CY FtbtDsgkTpPMMoruTeG78i cSMxiEGxr0czrnOlemYddR ZkaWKyXVRuZSO9MJp1IEIy LOutJAIgINxbLYPvMD6bxK 8zqRwshI8paWVvgLV2vbme hTStaT7kV1ZsSAFwm6Gwda wkd0QsFVRomnRsku1xEINp sTAWEDvlf4OpF7RqDWf0x5 EqbKdqUYahYFf6CqGxXTRk lUXdgPITUG45XEMfRSOycI vkvY8olUHERDFjrhX7b4A5 SQcmLADfDMg8AKebiqExLT LqxT7hPAYcUM4gBWu0iwYt EBOfm5ZeVF0cTAMrvNXbBS P2OMEue3YbH0Hzv1YcGUCm KOTurh8utoWaBxCRiIVkEB Yned57NREzTS8xO3wgVOLv LWAhbuKgjUXpo4MxCNJnmF X6aGVqEK2CGzUSi38qIXHp OVDGexMyVQAczGyzsEW5kr U0nN6qFlSYsUXcNwLYSJru rfBnEEOaau9juiGaBWCdJG Bro1ZptZIjiPYlmpCpC2Ux n7OaIBYwiq87EJvhoNWgtc 25MQ0jM8Nmj1HejT9cVNqj UYXsl5QchZVsdQJyLNUwo2 SvP6suonrvTNpsaBSqpY5v WFEsLJv4LGFes0GfCMSsr2 QgYmUgcmVnYXJkZWQgYXMg mH58ZIF5cYujzYfwayMlBW 2mOIDgibNaKMKrLVYeoQ5v YZmqmsJjKAAgwiE2w9J4IK cgQVKiydYnGjcuUIK3ynPl huP6xANdF7nbygijHMtkLP Czd6DceY1qfQEIiXNgy8Md pBSezSWNkRYcWC5jjvBnEE 7lZEY1CHbgRGTWXQEpBEbw GHUyZNX7NLgqVrquUFX1cx JjMWRrh5VoLAcfF7flE59c mIlfiRs2zUVgkFqnmFEmlD FtIKGyweK7a5I3WJEbj7Qc bmcuXHBhcn0= Gross assessment was [facility] performed at ([facility], = 2777) Department of Pathology, [address] [place] [address], Technical component was [facility] performed at ([facility], = 2778) Department of Pathology, [address] [place] [address], Professional component [facility] was performed at ([facility], code = 2779) Department of Pathology, [address] [place] [address], [facility] [id number] 10:56:00Surgical Pathology Report Case: [id number] Authorizing Provider: Vandana Tejada MD Collected: 08/31/2020 06:37 PM Ordering Location: [address] Received: 09/01/2020 08:13 AM Service Pathologist: [...] REPORT TO FOLLOW. Signing Pathologist Direct PhoneLine: [phone] signed by Thien Radford MD on 09/01/2020 at 3:59 [id number], [id number] groin cyst/iliopsoas mass, 6.3 x 6.1 x [...] evaluated Immunohistochemistry technical testing was performed at [facility], Pathology Laboratory where it was [...] to perform high complexity clinical la boratory testing.[facility], Department of Pathology, [address] [place] [address], [facility], [facility] of [facility], [address] [place] [address], [facility], [facility] of [facility], [address] [place] [address], LS, CHEST, WITH CONTRAST 2020-09-05 14:16:00Unlisted Reason for Exam - Click Yes and Enter Reason Below- >YesUnlisted 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 Signed: Brie Smith MDReport Verified Date/Time: 09/05/2020 14:16:01 Reading Location: [address] Body Reading Room Electronically signed by: BRIE SMITH M.D. on09/05/2020 02:16 PMCT chest with IV [id number] 14:16:00Interface, External Ris In - 09/05/2020 2:18 [...] Smith Verified Date/Time: 09/05/2020 14:16:01 Reading Location: [facility] C013Y CT [facility] 2020-09-05 14:16:00Interface, External [...] Smith Verified Date/Time: 09/05/2020 14:16:01 Reading Location: [facility] C013Y CT [facility] 2020-09-05 14:16:00Interface, External [...] MDReport Verified Date/Time: 09/05/2020 14:16:01 Reading Location: [address] [facility] W/Doppler(CW/PW/Color) 2020-09-05 09:47:35 Test Item Value Reference Range Interpretation Comments Ejection Fraction Est EF is 55-60% (test code = 2574) PXN (test code = Interface, External Ris In PXN) - 09/05/2020 9:47 AM CDTTransthoracic Echocardiography Report (TTE) Demographics Patient Name DANIEL DEL VALLE Date of Study 09/05/2020 NEELAM Gender Female Visit Number [id number] Race Unknown Room Number 2146 Number Date of 1960 Referring Physician Vandana Tejada MD Age 60 year(s) 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 Be Interpreting Eduardo Roberts MD Fellow [...] Velocity: 2.81 m/s TR Gradient: 31.62 mmHg [facility] W/Doppler(CW/PW/Color)2020-09-05 09:47:35 Test Item Value Reference Range Interpretation Comments Ejection Fraction Est EF is 55-60% (test code = 2574) PXN (test code = Interface, External Ris In PXN) - 09/05/2020 9:47 AM CDTTransthoracic Echocardiography Report (TTE) Demographics Patient Name DANIEL DEL VALLE Date of Study 09/05/2020 NEELAM Gender Female Visit Number [id number] Race Unknown Room Number 2146 Number Date of 1960 Referring Physician Vandana Tejada MD Age 60 year(s) 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 Be Interpreting Eduardo Roberts MD Fellow [...] Velocity: 2.81 m/s TR Gradient: 31.62 mmHg [facility] W/Doppler(CW/PW/Color)2020-09-05 09:47:35 Test Item Value Reference Range Interpretation Comments Ejection Fraction Est EF is 55-60% (test code = 2574) PXN (test code = Interface, External Ris In PXN) - 09/05/2020 9:47 AM CDTTransthoracic Echocardiography Report (TTE) Demographics Patient Name DANIEL DEL VALLE Date of Study 09/05/2020 DENYL Gender Female Visit Number [id number] Race Unknown Room Number 2146 Number Date of 1960 Referring Physician Vandana Tejada MD Age 60 year(s) 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 The reference range was not u sed to interpret th is result as normal/abnormal . Albumin (test code = 3.6 g/dL 3.5-5 97799-7) Alkaline Phosphatase 106 U/L 40-150 (test code = 6768-6) Total Bilirubin (test 0.2 mg/dL 0.2-1.2 code = 1974-) Sodium (test code = 139 meq/L 542-287 6153-2) Potassium (test code 4.7 meq/L 3.5-5.1 = 2823-3) Chloride (test code = 104 meq/L 98-107 5-0) CO2 (test code = 25 meq/L 22-29 2027-9) BUN (test code = 10 mg/dL 7- 3094-0) Creatinine (test code 0.70 mg/dL 0.57-1.25 = 2160-0) Glucose (test code = 159 mg/dL 70-105 H 234-7) Calcium (test code = 8.8 mg/dL 8.4-10.2 69702-5) AST (test code = 9 U/L -34 1920-8) ALT (test code = 13 U/L 6-55 1742-6) EGFR (test code = 103 mL/min/1.73 [place] [address]-4) NOT ACCURATE CREATININE CLEARANCE IN PREDICTING GLOMERULAR FILTRATION RATE . ESTIMATED GFR I S NOT APPLICABLE FOR DIALYSIS PATIEN TS. JESSICA (test code = JESSICA) Senior Electrical Designer ID - BALA Hernandez Lab Interpretation Abnormal (test code = 00513-9) [facility] [id number] 07:34:00 Test Item Value Reference Range Interpretation Comments Protein, Total (test 7.5 See_Comment [Autom ated code = 2885-2) message] The system which generated this result transmit yumiko reference range : 6.0 - 8.3 gm/dL . The reference range was not u sed to interpret th is result as normal/abnormal . Albumin (test code = 3.6 g/dL 3.5-5 62894-0) Alkaline Phosphatase 106 U/L 40-150 (test code = 6768-6) Total Bilirubin (test 0.2 mg/dL 0.2-1.2 code = 1974-04) Sodium (test code = 139 meq/L 696-937 1691-2) Potassium (test code 4.7 meq/L 3.5-5.1 = 2823-3) Chloride (test code = 104 meq/L 98-107 2074-0) CO2 (test code = 25 meq/L 2027-11) BUN (test code = 10 mg/dL 10-04 3094-0) Creatinine (test code 0.70 mg/dL 0.57-1.25 = 2160-0) Glucose (test code = 159 mg/dL 70-105 H 2345-7) Calcium (test code = 8.8 mg/dL 8.4-10.2 91449-3) AST (test code = 9 U/L -34 1920-8) ALT (test code = 13 U/L 6-55 1742-6) EGFR (test code = 103 mL/min/1.73 [place] [address]-9) NOT ACCURATE CREATININE CLEARANCE IN PREDICTING GLOMERULAR FILTRATION RATE . ESTIMATED GFR I S NOT APPLICABLE FOR DIALYSIS PATIEN JESSICA (test code = JESSICA) Senior Electrical Designer ID - BALA M Lab Interpretation Abnormal (test code = 41304-8) [facility] [id number] 07:34:00 Test Item Value Reference Range Interpretation Comments Protein, Total (test 7.5 See_Comment [Autom ated code = 2885-2) message] The system which generated this result transmit yumiko reference range : 6.0 - 8.3 gm/dL . The reference range was not u sed to interpret th is result as normal/abnormal . Albumin (test code = 3.6 g/dL 3.5-5 70863-9) Alkaline Phosphatase 106 U/L 40-150 (test code = 6768-6) Total Bilirubin (test 0.2 mg/dL 0.2-1.2 code = 1974-2) Sodium (test code = 139 meq/L 584-539 8104-2) Potassium (test code 4.7 meq/L 3.5-5.1 = 2823-3) Chloride (test code = 104 meq/L 98-107 2074-0) CO2 (test code = 25 meq/L 2027-11) BUN (test code = 10 mg/dL 10-04 3094-0) Creatinine (test code 0.70 mg/dL 0.57-1.25 = 2160-0) Glucose (test code = 159 mg/dL 70-105 H 2345-7) Calcium (test code = 8.8 mg/dL 8.4-10.2 97023-5) AST (test code = 9 U/L 5-34 1920-8) ALT (test code = 13 U/L 6-55 1742-6) EGFR (test code = 103 mL/min/1.73 [place] [address]-3) NOT ACCURATE CREATININE CLEARANCE IN PREDICTING GLOMERULAR FILTRATION RATE . ESTIMATED GFR I S NOT APPLICABLE FOR DIALYSIS PATIEN TS. LOPEZ (test code = JESSICA) Senior Electrical Designer ID - BALA M Lab Interpretation Abnormal (test code = 28374-3) [facility] [id number] 07:34:00 Test Item Value Reference Range Interpretation [...] S NOT APPLICABLE FOR DIALYSIS PATIEN TS. Senior Electrical Designer ID - BALA MSARS-CoV2/RT-PCR (Asymptomatic ONLY)2020-09-04 12:52:00 Test Item Value Reference Range Interpretation Comments SARS-COV2/RT-PCR Negative Not Detected, (test code = Negative, See 95126-5) external report for linked test SARS-COV-2 [facility] PERFORMING LAB (test code = 30310-5) JESSICA (test code = Negative result for [...] of the Act. Fact Sheet for Healthcare Providers:https://www.[employer]/sites/default/f nito/product/documents/F act_Sheet_HC_Providers_L hoq_EWYO-AgO-0.pdf Fact Sheet for Healthcare Patients:https://www.[employer]/sites/default/fi les/product/documents/Fa ct_Sheet_Patients_Otto_S ARS-CoV-2.pdf Performing Laboratory:[facility] [place] [address] [facility]omatic [facility]2020-09-04 12:52:00 Test Item Value Reference Range Interpretation Comments SARS-COV2/RT-PCR Negative Not Detected, (test code = Negative, See 63536-8) external report for linked test SARS-COV-2 [facility] PERFORMING LAB (test code = 41564-8) JESSICA (test code = Negative result for [...] of the Act. Fact Sheet for Healthcare Providers:https://www.[employer]/sites/default/f nito/product/documents/F act_Sheet_HC_Providers_L rws_EABE-CuU-1.pdf Fact Sheet for Healthcare Patients:https://www.[employer]/sites/default/fi les/product/documents/Fa ct_Sheet_Patients_Otto_S ARS-CoV-2.pdf Performing Laboratory:[facility] [place] [address] [facility] (Asymptomatic ONLY)2020-09-04 12:52:00 Test Item Value Reference Range Interpretation Comments SARS-COV2/RT-PCR Negative Not Detected, (test code = Negative, See 42810-3) external report for linked test SARS-COV-2 [facility] PERFORMING LAB (test code = 05521-8) JESSICA (test code = Negative result for [...] of the Act. Fact Sheet for Healthcare Providers:https://www.[employer]/sites/default/f nito/product/documents/F act_Sheet_HC_Providers_L vkq_TXLS-KkY-7.pdf Fact Sheet for Healthcare Patients:https://www.[employer]/sites/default/fi les/product/documents/Fa ct_Sheet_Patients_Lyra_S ARS-CoV-2.pdf Performing Laboratory:[facility] [place] [address] [facility] ([facility])2020-09-04 12:52:00 Test Item Value Reference Range Interpretation Comments SARS-COV2/RT-PCR (test Negative Not Detected, Negative, code = 2344376) See external report for linked test SARS-COV-2 PERFORMING LAB [facility] (test code = 2490749) Negative result for this test determines that [...] 564(g) of the Act.Fact Sheet for Healthcare Providers:https://www.[employer]/sites/default/files/product/documents/Fact_Shee q_ES_Ybtmiwvhf_Mzkb_VWZS-HvW-4.pdfFact Sheet for Healthcare Patients:https://www.[employer]/sites/default/files/product/ documents/Vylf_Mkqqg_Wniqmrkj_Mcmg_VAVK-MiU-6.pdfPerforming Laboratory:[facility] [place], [place] [address], [place] [address]D[facility] with platelet count + automated [id number] 06:38:00 Test Item Value Reference Range Interpretation Comments WBC (test code = 6690-2) 11.4 See_Comment H [A utomated message] The system [employer] generated this result transmitted ref erence range: 3.5 - 10 .5 K/L. The refe rence range was not u sed to interpret this result as normal/abnor mal. RBC (test code = 789-8) 4.35 See_Comment [Au tomated message] The system [employer] generated this result transmitted ref erence range: 3.93 - 5 .22 M/L. The refe rence range was not u sed to interpret this result as normal/abnor mal. MCHC (test code = 786-4) 28.0 See_Comment L [A utomated message] The system [employer] generated this result transmitted ref erence range: [...] See_Comment [Aut omated message] 777-3) The system [employer] generated this result transmitted ref erence range: 150 - 45 0 K/CU MM. The referen ce range was not u sed to interpret this result as normal/abnor mal. MPV (test code = 9.0 fL 9.4-12.3 L 48431-8) nRBC (test code = 413) 0 See_Comment [Aut omated message] The system [employer] generated this result transmitted ref erence range: [...] H [Aut omated message] 670) The system [employer] generated this result transmitted ref erence range: 1.56 - 6 .13 K/L. The refe rence range was not u sed to interpret this result as normal/abnor mal. # Lymphs (test code = 2.06 See_Comment [Auto mated message] 414) The system [employer] generated this result transmitted ref erence range: 1.18 - 3 .74 K/L. The refe rence range was not u sed to interpret this result as normal/abnor mal. # Monos (test code = 0.95 See_Comment H [Autom ated message] 415) The system [employer] generated this result transmitted ref erence range: 0.24 - 0 .36 K/L. The refe rence range was not u sed to interpret this result as normal/abnor mal. # Eos (test code = 416) 0.46 See_Comment H [Au tomated message] The system [employer] generated this result transmitted ref erence range: 0.04 - 0 .36 K/L. The refe rence range was not u sed to interpret this result as normal/abnor mal. # Baso (test code = 417) 0.03 See_Comment [A utomated message] The system [employer] generated this result transmitted ref erence range: 0.01 - 0 .08 K/L. The refe rence range was not u sed to interpret this result as normal/abnor mal. Immature 1 % 0-1 Granulocytes-Relative (test code = 2801) Lab Interpretation (test Abnormal code = 24746-3) [facility] with platelet count + automated [id number] 06:38:00 Test Item Value Reference Range Interpretation Comments WBC (test code = 6690-2) 11.4 See_Comment H [A utomated message] The system [employer] generated this result transmitted ref erence range: 3.5 - 10 .5 K/L. The refe rence range was not u sed to interpret this result as normal/abnor mal. RBC (test code = 789-8) 4.35 See_Comment [Au tomated message] The system [employer] generated this result transmitted ref erence range: 3.93 - 5 .22 M/L. The refe rence range was not u sed to interpret this result as normal/abnor mal. MCHC (test code = 786-4) 28.0 See_Comment L [A utomated message] The system [employer] generated this result transmitted ref erence range: [...] See_Comment [Aut omated message] 777-3) The system [employer] generated this result transmitted ref erence range: 150 - 45 0 K/CU MM. The referen ce range was not u sed to interpret this result as normal/abnor mal. MPV (test code = 9.0 fL 9.4-12.3 L 53883-5) nRBC (test code = 413) 0 See_Comment [Aut omated message] The system [employer] generated this result transmitted ref erence range: [...] H [Aut omated message] 670) The system [employer] generated this result transmitted ref erence range: 1.56 - 6 .13 K/L. The refe rence range was not u sed to interpret this result as normal/abnor mal. # Lymphs (test code = 2.06 See_Comment [Auto mated message] 414) The system [employer] generated this result transmitted ref erence range: 1.18 - 3 .74 K/L. The refe rence range was not u sed to interpret this result as normal/abnor mal. # Monos (test code = 0.95 See_Comment H [Autom ated message] 415) The system [employer] generated this result transmitted ref erence range: 0.24 - 0 .36 K/L. The refe rence range was not u sed to interpret this result as normal/abnor mal. # Eos (test code = 416) 0.46 See_Comment H [Au tomated message] The system [employer] generated this result transmitted ref erence range: 0.04 - 0 .36 K/L. The refe rence range was not u sed to interpret this result as normal/abnor mal. # Baso (test code = 417) 0.03 See_Comment [A utomated message] The system [employer] generated this result transmitted ref erence range: 0.01 - 0 .08 K/L. The refe rence range was not u sed to interpret this result as normal/abnor mal. Immature 1 % 0-1 Granulocytes-Relative (test code = 2801) Lab Interpretation (test Abnormal code = 93385-5) [facility] with platelet count + automated [id number] 06:38:00 Test Item Value Reference Range Interpretation Comments WBC (test code = 6690-2) 11.4 See_Comment H [A utomated message] The system [employer] generated this result transmitted ref erence range: 3.5 - 10 .5 K/L. The refe rence range was not u sed to interpret this result as normal/abnor mal. RBC (test code = 789-8) 4.35 See_Comment [Au tomated message] The system [employer] generated this result transmitted ref erence range: 3.93 - 5 .22 M/L. The refe rence range was not u sed to interpret this result as normal/abnor mal. MCHC (test code = 786-4) 28.0 See_Comment L [A utomated message] The system [employer] generated this result transmitted ref erence range: [...] See_Comment [Aut omated message] 777-3) The system [employer] generated this result transmitted ref erence range: 150 - 45 0 K/CU MM. The referen ce range was not u sed to interpret this result as normal/abnor mal. MPV (test code = 9.0 fL 9.4-12.3 L 37440-4) nRBC (test code = 413) 0 See_Comment [Aut omated message] The system [employer] generated this result transmitted ref erence range: [...] H [Aut omated message] 670) The system [employer] generated this result transmitted ref erence range: 1.56 - 6 .13 K/L. The refe rence range was not u sed to interpret this result as normal/abnor mal. # Lymphs (test code = 2.06 See_Comment [Auto mated message] 414) The system [employer] generated this result transmitted ref erence range: 1.18 - 3 .74 K/L. The refe rence range was not u sed to interpret this result as normal/abnor mal. # Monos (test code = 0.95 See_Comment H [Autom ated message] 415) The system [employer] generated this result transmitted ref erence range: 0.24 - 0 .36 K/L. The refe rence range was not u sed to interpret this result as normal/abnor mal. # Eos (test code = 416) 0.46 See_Comment H [Au tomated message] The system [employer] generated this result transmitted ref erence range: 0.04 - 0 .36 K/L. The refe rence range was not u sed to interpret this result as normal/abnor mal. # Baso (test code = 417) 0.03 See_Comment [A utomated message] The system [employer] generated this result transmitted ref erence range: 0.01 - 0 .08 K/L. The refe rence range was not u sed to interpret this result as normal/abnor mal. Immature 1 % 0-1 Granulocytes-Relative (test code = 2801) Lab Interpretation (test Abnormal code = 18872-4) [facility] W/PLT COUNT & AUTO [id number] 06:38:00 Test Item Value Reference Range Interpretation [...] PERCENT (BEAKER) (test code = 2801) Prothrombin time/[id number] 05:07:00 Test Item Value Reference Interpretation Comments Range Protime (test code = 19.2 See_Comment H [Autom ated 5902-2) message] The system which generated this result transmitted reference range : 11.9 - 14.2 seconds. The reference range was not used to interpret this result as normal/abnormal . INR (test code = 1.64 See_Comment [Automated [employer]1-6) message] The system which generated this result [...] valves. Lab Interpretation Abnormal (test code = 78112-3) [facility]/[id number] 05:07:00 Test Item Value Reference Interpretation Comments Range Protime (test code = 19.2 See_Comment H [Autom Ask.comd 5902-2) message] The system which generated this result transmitted reference range : 11.9 - 14.2 seconds. The reference range was not used to interpret this result as normal/abnormal . INR (test code = 1.64 See_Comment [Automated [employer]1-6) message] The system which generated this result [...] valves. Lab Interpretation Abnormal (test code = 49170-3) [facility] time/[id number] 05:07:00 Test Item Value Reference Interpretation Comments [...] valves. Lab Interpretation Abnormal (test code = 68869-1) [facility] HospitalPROTHROMBIN TIME/[id number] 05:07:00 Test Item Value Reference Range Interpretation Comments PROTIME (BEAKER) 19.2 seconds 11.9-14.2 H (test code = 759) INR (BEAKER) (test 1.64 See_Comment [Automat ed message] code = 370) The system [employer] generated this result transmitted ref erence range: [...] See_Comment H [A utomated message] The system [employer] generated this result transmitted ref erence range: 3.5 - 10 .5 K/L. The refe rence range was not u sed to interpret this result as normal/abnor mal. RBC (test code = 789-8) 4.36 See_Comment [Au tomated message] The system [employer] generated this result transmitted ref erence range: 3.93 - 5 .22 M/L. The refe rence range was not u sed to interpret this result as normal/abnor mal. MCHC (test code = 786-4) 28.6 See_Comment L [A utomated message] The system [employer] generated this result transmitted ref erence range: [...] See_Comment [Aut omated message] 777-3) The system [employer] generated this result transmitted ref erence range: 150 - 45 0 K/CU MM. The referen ce range was not u sed to interpret this result as normal/abnor mal. MPV (test code = 8.9 fL 9.4-12.3 L 38922-9) nRBC (test code = 413) 0 See_Comment [Aut omated message] The system [employer] generated this result transmitted ref erence range: 0 - 0 /1 00 WBC. The refere nce range was not u sed to interpret this result as normal/abnor mal. Lab Interpretation (test Abnormal code = 28992-0) [facility] (Hemogram only)2020-09-02 04:59:00 Test Item Value Reference Range Interpretation Comments WBC (test code = 6690-2) 10.9 See_Comment H [A utomated message] The system [employer] generated this result transmitted ref erence range: 3.5 - 10 .5 K/L. The refe rence range was not u sed to interpret this result as normal/abnor mal. RBC (test code = 789-8) 4.36 See_Comment [Au tomated message] The system [employer] generated this result transmitted ref erence range: 3.93 - 5 .22 M/L. The refe rence range was not u sed to interpret this result as normal/abnor mal. MCHC (test code = 786-4) 28.6 See_Comment L [A utomated message] The system [employer] generated this result transmitted ref erence range: [...] See_Comment [Aut omated message] 777-3) The system [employer] generated this result transmitted ref erence range: 150 - 45 0 K/CU MM. The referen ce range was not u sed to interpret this result as normal/abnor mal. MPV (test code = 8.9 fL 9.4-12.3 L 35258-4) nRBC (test code = 413) 0 See_Comment [Aut omated message] The system [employer] generated this result transmitted ref erence range: 0 - 0 /1 00 WBC. The refere nce range was not u sed to interpret this result as normal/abnor mal. Lab Interpretation (test Abnormal code = 27400-6) [facility]2020-09-02 04:59:00 Test Item Value Reference Range Interpretation Comments WBC (test code = 6690-2) 10.9 See_Comment H [A utomated message] The system [employer] generated this result transmitted ref erence range: 3.5 - 10 .5 K/L. The refe rence range was not u sed to interpret this result as normal/abnor mal. RBC (test code = 789-8) 4.36 See_Comment [Au tomated message] The system [employer] generated this result transmitted ref erence range: 3.93 - 5 .22 M/L. The refe rence range was not u sed to interpret this result as normal/abnor mal. MCHC (test code = 786-4) 28.6 See_Comment L [A utomated message] The system [employer] generated this result transmitted ref erence range: [...] See_Comment [Aut omated message] 777-3) The system [employer] generated this result transmitted ref erence range: 150 - 45 0 K/CU MM. The referen ce range was not u sed to interpret this result as normal/abnor mal. MPV (test code = 8.9 fL 9.4-12.3 L 33847-6) nRBC (test code = 413) 0 See_Comment [Aut omated message] The system [employer] generated this result transmitted ref erence range: 0 - 0 /1 00 WBC. The refere nce range was not u sed to interpret this result as normal/abnor mal. Lab Interpretation (test Abnormal code = 40970-7) [facility] (HEMOGRAM ONLY)2020-09-02 04:59:00 Test Item Value [...] (BEAKER) (test code = 413) U/S, CORE [id number] 08:58:00Reason for exam:->BIOPSY LEFT ILIOPSOAS MASS US VS CT [facility]UIDED [facility] : 1960 Sex: FFINAL REPORT Procedure: Ultrasound-Guided left iliopsoas/inguinal mass core biopsy Pre/post-procedure diagnosis: Left iliopsoas/inguinal mass Director Child: Abdirahman Chopra MD Assistants: none Sedation: Moderate [...] MDReport Verified Date/Time: 09/01/2020 08:58:59 Reading Location: [facility] Diagnostic Imaging Reading Room - [facility] 1.310.12 US Core [id number] 08:58:00Interface, External Ris In - 09/01/2020 9:01 AM CDTFINAL REPORT Procedure: Ultrasound-Guided left iliopsoas/inguinal mass core biopsy Pre/post-procedure diagnosis: Left iliopsoas /inguinal mass Director Child: Abdirahman Chopra MD Assistants: none Sedation: Moderate [...] MDRmaude Verified Date/Time: 09/01/2020 08:58:59 Reading Location: [facility] Diagnostic Imaging Reading Room - [facility] 1.310.12 [facility] 2020-09-01 08:58:00Interface, External Ris In - 09/01/2020 9:01 AM CDTFINAL REPORT Procedure: Ultrasound-Guided left iliopsoas/inguinal mass core biopsy Pre/post-procedure diagnosis: Left iliopsoas /inguinal mass Director Child: Abdirahman Chopra MD Assistants: none Sedation: Moderate [...] MDRmaude Verified Date/Time: 09/01/2020 08:58:59 Reading Location: [facility] Diagnostic Imaging Reading Room - [facility] F1 1.310.12 [facility] 2020-09-01 08:58:00Interface, External Ris In - 09/01/2020 9:01 AM CDTFINAL REPORT Procedure: Ultrasound-Guided left iliopsoas/inguinal mass core biopsy Pre/post-procedure diagnosis: Left iliopsoas /inguinal mass Director Child: Abdirahman Chopra MD Assistants: none Sedation: Moderate [...] MDReport Verified Date/Time: 09/01/2020 08:58:59 Reading Location: [facility] Diagnostic Imaging Reading Room - [facility] 1.310.12 [facility]2020-09-01 05:07:00 Test Item [...] 0-0 (BEAKER) (test code = 413) PROTHROMBIN TIME/[id number] 04:44:00 Test Item Value Reference Range Interpretation Comments PROTIME (BEAKER) 19.1 seconds 11.9-14.2 H (test code = 759) INR (BEAKER) (test 1.63 See_Comment [Automat ed message] code = 370) The system [employer] generated this result transmitted ref erence range: <=5.90. The reference range was not used to int erpret this result as normal/abnormal . RECOMMENDED COUMADIN/WARFARIN INR THERAPY RANGESSTANDARD DOSE: 2.0 - 3.0 Includes: PROPHYLAXIS forvenous thrombosis, systemic embolization; TREATMENT for venous thrombosis and/or pulmonary embolus.HIGH RISK: Target INR is 2.5-3.5 for patients with mechanical heart valves.Vitamin B12 and [id number] 06:16:00 Test Item Value Reference Range Interpretation Comments Vitamin B12 (test 327 pg/mL 213-816 code = 2132-9) Folate (test code = 3.70 ng/mL See_Comment L [Automa yumiko 2284-8) message] The system which generated this result transmit yumiko reference range : >=7.00. The reference range was not used to interpret this result as normal/abnormal . JESSICA (test code = JESSICA) Senior Electrical Designer ID - BALA Hernandez Lab Interpretation Abnormal (test code = 98070-9) [facility] and [id number] 06:16:00 Test Item Value Reference Range Interpretation Comments Vitamin B12 (test 327 pg/mL 213-816 code = 2132-9) Folate (test code = 3.70 ng/mL See_Comment L [Automa yumiko 2284-8) message] The system which generated this result transmit yumiko reference range : >=7.00. The reference range was not used to interpret this result as normal/abnormal . JESSICA (test code = JESSICA) Senior Electrical Designer ID - BALA Hernandez Lab Interpretation Abnormal (test code = 00782-5) [facility] and [id number] 06:16:00 Test Item Value Reference Range Interpretation Comments Vitamin B12 (test 327 pg/mL 213-816 code = 2132-9) Folate (test code = 3.70 ng/mL See_Comment L [Automa yumiko 2284-8) message] The system which generated this result transmit yumiko reference range : >=7.00. The reference range was not used to interpret this result as normal/abnormal . JESSICA (test code = JESSICA) Senior Electrical Designer ID - BALA Hernandez Lab Interpretation Abnormal (test code = 61734-5) [facility]VITAMIN B12 AND [id number] 06:16:00 Test Item Value Reference Range Interpretation Comments VITAMIN B12 (BEAKER) 327 pg/mL 213-816 (test code = 774) FOLATE (BEAKER) 3.70 ng/mL See_Comment L [Automated message] (test code = 362) The system which generated this result transmitted ref erence range: >=7.00. The reference range was not used to interpr et this result as normal/abnormal . Senior Electrical Designer ID - BALA MPROTHROMBIN TIME/[id number] 05:36:00 Test Item Value Reference Range Interpretation Comments PROTIME (BEAKER) 21.8 seconds 11.9-14.2 H (test code = 759) INR (BEAKER) (test 1.92 See_Comment [Automat ed message] code = 370) The system [employer] generated this result transmitted ref erence range: [...] 0-0 (BEAKER) (test code = 413) CT, [id number] 11:32:00Unlisted Reason for Exam - Click Yes and Enter Reason Below->NoWill this procedure require oral contrast?->No [facility] : 1960 [...] size and patent. Right lower extremity: The ADVANCED NURSING PROFESSOR, DFA, SFA, and popliteal arteries are patent. Trifurcation vessels are patent. Left lower extremity: The ADVANCED NURSING PROFESSOR, DFA, SFA, and popliteal arteries are patent. [...] No evidence remote metastatic disease. Signed: Kale Jayeport Verified Date/Time: 08/30/2020 11:32:07 Reading Location: [place] [address] [address], CTA AAA, W/ BELLA.EXT.RUNOFF 2020-08-30 11:32:00LLE DVT, assess prior pelvic mass, please assess venous phaseAnesthesia:->None [facility] 1960 [...] size and patent. Right lower extremity: The ADVANCED NURSING PROFESSOR, DFA, SFA, and popliteal arteries are patent. Trifurcation vessels are patent. Left lower extremity: The ADVANCED NURSING PROFESSOR, DFA, SFA, and popliteal arteries are patent. [...] evidence remote metastatic disease. Signed: Kale Jay Verified Date/Time: 08/30/2020 11:32:07 Reading Location: [place] [address] [address] abdomen/pelvis with [...] size and patent. Right lower extremity: The ADVANCED NURSING PROFESSOR, DFA, SFA, and popliteal arteries are patent. Trifurcation vessels are patent. Left lower extremity: The ADVANCED NURSING PROFESSOR, DFA, SFA, and popliteal arteries are patent. [...] MDReport Verified Date/Time: 08/30/2020 11:32:07 Reading Location: [facility] B1 P048 Angio Body Reading [facility] and [id number] 11:32:00Interface, External Ris In - 08/30/2020 11:34 [...] size and patent. Right lower extremity: The ADVANCED NURSING PROFESSOR, DFA, SFA, and popliteal arteries are patent. Trifurcation vessels are patent. Left lower extremity: The ADVANCED NURSING PROFESSOR, DFA, SFA, and popliteal arteries are patent. [...] [place] Verified Date/Time: 08/30/2020 11:32:07 Reading Location: [facility] P048 [facility]io Body [facility] [id number] 11:32:00Interface, External Ris In - 08/30/2020 11:34 [...] size and patent. Right lower extremity: The ADVANCED NURSING PROFESSOR, DFA, SFA, and popliteal arteries are patent. Trifurcation vessels are patent. Left lower extremity: The ADVANCED NURSING PROFESSOR, DFA, SFA, and popliteal arteries are patent. [...] MDReport Verified Date/Time: 08/30/2020 11:32:07 Reading Location: [place] [address] [facility]io Body [facility] AAA and Saakll2004-18-34 11:32:00Interface, External Ris In - 08/30/2020 11:34 [...] size and patent. Right lower extremity: The ADVANCED NURSING PROFESSOR, DFA, SFA, and popliteal arteries are patent. Trifurcation vessels are patent. Left lower extremity: The ADVANCED NURSING PROFESSOR, DFA, SFA, and popliteal arteries are patent. [...] [place]ep[place] Verified Date/Time: 08/30/2020 11:32:07 Reading Location: [facility] P048 [facility]io Body [facility]pelvis with IV [id number] 11:32:00Interface, External Ris In - 08/30/2020 11:34 [...] size and patent. Right lower extremity: The ADVANCED NURSING PROFESSOR, DFA, SFA, and popliteal arteries are patent. Trifurcation vessels are patent. Left lower extremity: The ADVANCED NURSING PROFESSOR, DFA, SFA, and popliteal arteries are patent. [...] [place]ep[place] Verified Date/Time: 08/30/2020 11:32:07 Reading Location: [place] [id number] [facility]io Body [facility] AAA and [id number] 11:32:00Interface, External Ris In - 08/30/2020 11:34 [...] size and patent. Right lower extremity: The ADVANCED NURSING PROFESSOR, DFA, SFA, and popliteal arteries are patent. Trifurcation vessels are patent. Left lower extremity: The ADVANCED NURSING PROFESSOR, DFA, SFA, and popliteal arteries are patent. [...] [place] Verified Date/Time: 08/30/2020 11:32:07 Reading Location: [facility] P048 Angio Body Reading [facility] CenterArterial doppler leg, [id number] 09:31:54[facility] ECHO HEARTLAB MKCKESSON CPA Left Impression1. The common femoral, profunda femoral, [...] + + + + + + !Mid COMPUTER METHODS ANALYST ! !59.4 ! ! ! + + +-- + + + !Dist COMPUTER METHODS ANALYST ! !61.6 ! ! ! + + [...] Study 08/29/2020 NEELAM Age 60 Visit Number [id number] Gender Female Accession Number [id number] Date of 1960 Referring Tricia Hernandez Room Number 2546 Physician Richard Supply Technician Stacy Proctor Interpreting Vivek Benitez MD RVT [...] + + + ------+ + + !Prox YULI ! !92.4 ! ! ! + + + +------- + + !Prox SFA ! !108 ! ! ! + + + + + + !Mid SFA ! !70.6 ! ! ! + + + + + + !Dist SFA ! !71.4 ! !! + + + + + + !Dist Popliteal ! !75.5 ! ! ! + + + + + + !Mid COMPUTER METHODS ANALYST ! !59.4 ! ! ! + + + + + + !Dist COMPUTER METHODS ANALYST ! !61.6 ! ! ! + + + ---------+ + + !Prox JANETTE ! !64.3 ! ! ! + + + +---- + + !Mid JANETTE ! !80.3 ! ! ! + + + + + + !Dist JANETTE ! !67.1 ! ! ! + + + + + +[facility], [id number] 09:31:54[facility] ECHO HEARTLAB MKCKESSON CPACS Left Impression1. The common femoral, profunda fe [...] + + + + + + !Mid COMPUTER METHODS ANALYST ! !59.4 ! ! ! + + +-- + + + !Dist COMPUTER METHODS ANALYST ! !61.6 ! ! ! + + [...] Study 08/29/2020 NEELAM Age 60 Visit Number [id number] Gender Female Accession Number [id number] Date of 1960 Referring Tricia Hernandez Room Number 5436 Physician Richard Supply Technician Stacy Benitez MD RVT Physician ProcedureType of [...] + + + + + + !Mid COMPUTER METHODS ANALYST ! !59.4 ! ! ! + + + + + + !Dist COMPUTER METHODS ANALYST ! !61.6 ! ! ! + + + ---------+ + + !Prox JANETTE ! !64.3 ! ! ! + + + +---- + + !Mid JANETTE ! !80.3 ! ! ! + + + + + + !Dist JANETTE ! !67.1 ! ! ! + + + + + +[facility] Center[facility], [id number] 09:31:54[facility] ECHO HEARTLAB MKCKESSON CPACS Left Impression1. The common femoral, profunda fe [...] + + + + + + !Mid COMPUTER METHODS ANALYST ! !59.4 ! ! ! + + +-- + + + !Dist COMPUTER METHODS ANALYST ! !61.6 ! ! ! + + + ---+ + + !Prox JANETTE ! !64.3 ! ! ! + + + + --------+ + !Mid JANETTE ! !80.3 ! ! ! + + + + + + !Dist JANETTE ! !67.1 ! ! ! + + + + + + Shaun Randhawa In - 08/30/2020 9:32 AM CDTPV LAB - Lower Extremity Arterial Duplex Demographics Patient Name DANIEL DEL VALLE Date of Study 08/29/2020 NEELAM Age 60 Visit Number [id number] Gender Female Accession Number [id number] Date of 1960 Referring Tricia Hernandez Room Number 1366 Physician Richard Supply Technician Stacy Benitez MD RVT Physician ProcedureType of [...] + + + + + + !Mid COMPUTER METHODS ANALYST ! !59.4 ! ! ! + + + + + + !Dist COMPUTER METHODS ANALYST ! !61.6 ! ! ! + + + ---------+ + + !Prox JANETTE ! !64.3 ! ! ! + + + +---- + + !Mid JANETTE ! !80.3 ! ! ! + + + + + + !Dist JANETTE ! !67.1 ! ! ! + + + + + +[facility] and [id number] 06:17:00 Test Item Value Reference Range Interpretation [...] mL/min/1.73 [place] [address]-7) NOT ACCURATE CREATININE CLEARANCE IN PREDICTING GLOMERULAR FILTRATION RATE . ESTIMATED GFR I S NOT APPLICABLE FOR DIALYSIS PATIEN TS. JESSICA (test code = Senior Electrical Designer ID - BS JESSICA) [facility] and Vcywbjmvti6570-67-87 06:17:00 Test Item Value Reference Range Interpretation [...] mL/min/1.73 [place] [address]-7) NOT ACCURATE CREATININE CLEARANCE IN PREDICTING GLOMERULAR FILTRATION RATE . ESTIMATED GFR I S NOT APPLICABLE FOR DIALYSIS PATIEN TS. JESSICA (test code = Senior Electrical Designer ID - BS JESSICA) [facility] and [id number] 06:17:00 Test Item Value Reference Range Interpretation [...] mL/min/1.[place] [address]-8) NOT ACCURATE CREATININE CLEARANCE IN PREDICTING GLOMERULAR FILTRATION RATE . ESTIMATED GFR I S NOT APPLICABLE FOR DIALYSIS PATIEN TS. JESSICA (test code = Senior Electrical Designer ID - BS JESSICA) [facility] AND CREATININE W/[id number] 06:17:00 Test Item Value Reference Range Interpretation Comments BLOOD UREA NITROGEN 13 mg/dL 7-21 (BEAKER) (test code = 354) CREATININE (BEAKER) 0.72 mg/dL 0.57-1.25 (test code = 358) BUN/CREAT RATIO 18 For a normal (BEAKER) (test code individu al on a = 8424848706) normal diet, t he reference inter jewel for the mass ra nabil ranges between 12:1 and 20:1 (BUN i n mg/dL/creatinin e in mg/dL) EGFR (BEAKER) (test 100 mL/min/1.73 ESTIM ATED GFR IS code = 1092) sq m NOT ACCURATE CREATININE CLEARANCE IN PREDICTING GLOMERULAR FILTRATION RATE . ESTIMATED GFR I S NOT APPLICABLE FOR DIALYSIS PATIEN TS. Senior Electrical Designer ID - BSCBC (HEMOGRAM ONLY)2020-08-30 05:50:00 Test [...] 0-0 (BEAKER) (test code = 413) PROTHROMBIN TIME/[id number] 05:48:00 Test Item Value Reference Range Interpretation Comments PROTIME (BEAKER) 21.5 seconds 11.9-14.2 H (test code = 759) INR (BEAKER) (test 1.89 See_Comment [Automat ed message] code = 370) The system IdealSe[employer] generated this result transmitted ref erence range: [...] 1.0-2.0 units/mL once daily enoxaparin Ref: CHEST 2012;141:[id number]-j78x Lab Interpretation (test Normal code = 25725-8) [facility] HospitalHeparin Assay - Low Molecular [id number] 14:07:00 Test Item Value Reference Range Interpretation Comments Anti 10A-Lovenox (test 0.85 u/ml 0.6-2 code = 1605) JESSICA (test code = JESSICA) Anti-Factor 10-A Level (Heparin Assay for Low Molecular Weight Heparin)Monitoring Guidelines: Blood samples should be obtained 4 hours post subcutaneous injection (time of Peak level) Therapeutic Peak Levels: 0.6-1.0 units/mL twice daily enoxaparin 1.0-2.0 units/mL once daily enoxaparin Ref: CHEST 2012;141:[id number] Lab Interpretation (test Normal code = 05699-0) [facility] Assay - Low Molecular [id number] 14:07:00 Test Item Value Reference Range Interpretation Comments Anti 10A-Lovenox (test 0.85 u/ml 0.6-2 code = 1605) JESSICA (test code = JESSICA) Anti-Factor 10-A Level (Heparin Assay for Low Molecular Weight Heparin)Monitoring Guidelines: Blood samples should be obtained 4 hours post subcutaneous injection (time of Peak level) Therapeutic Peak Levels: 0.6-1.0 units/mL twice daily enoxaparin 1.0-2.0 units/mL once daily enoxaparin Ref: CHEST 2012;141:[id number] Lab Interpretation (test Normal code = 58610-4) [facility] HospitalHEPARIN ASSAY - LOW MOLECULAR [id number] 14:07:00 Test Item Value Reference Range Interpretation Comments LOVENOX-ANTI 10A (BEAKER) (test 0.85 u/ml 0.60-2.00 code = 1605) Anti-Factor 10-A Level (Heparin Assay for Low Molecular Weight Heparin)Monitoring Guidelines: Blood samples should be obtained 4 hours post subcutaneous injection (time of Peak level) Therapeutic Peak Levels: 0.6-1.0 units/mL twice daily enoxaparin 1.0-2.0 units/mL once daily enoxaparinRef: CHEST 2012;141:[id number] (HEMOGRAM ONLY)2020-08-29 13:22:00 Test Item Value Reference [...] 0-0 (BEAKER) (test code = 413) PROTHROMBIN TIME/[id number] 05:41:00 Test Item Value Reference Range Interpretation Comments PROTIME (BEAKER) 17.4 seconds 11.9-14.2 H (test code = 759) INR (BEAKER) (test 1.45 See_Comment [Automat ed message] code = 370) The system [employer] generated this result transmitted ref erence range: <=5.90. The reference range was not used to int erpret this result as normal/abnormal . RECOMMENDED COUMADIN/WARFARIN INR THERAPY RANGESSTANDARD DOSE: 2.0 - 3.0 Includes: PROPHYLAXIS forvenous thrombosis, systemic embolization; TREATMENT for venous thrombosis and/or pulmonary embolus.HIGH RISK: Target INR is 2.5-3.5 for patients with mechanical heart valves.BUN AND CREATININE W/[id number] 17:04:00 Test Item Value Reference Range Interpretation Comments BLOOD UREA NITROGEN 9 mg/dL 7-21 (BEAKER) (test code = 354) CREATININE (BEAKER) 0.79 mg/dL 0.57-1.25 (test code = 358) BUN/CREAT RATIO 11 For a normal (BEAKER) (test code individu al on a = 8897520383) normal diet, t he reference inter jewel for the mass ra nabil ranges between 12:1 and 20:1 (BUN i n mg/dL/creatinin e in mg/dL) EGFR (BEAKER) (test 90 mL/min/1.73 ESTIMA YUMIKO GFR IS code = 1092) sq m NOT ACCURATE CREATININE CLEARANCE IN PREDICTING GLOMERULAR FILTRATION RATE . ESTIMATED GFR I S NOT APPLICABLE FOR DIALYSIS PATIEN TS. Senior Electrical Designer ID - DBVenous doppler leg, [id number] 15:52:54[facility] ECHO HEARTLAB MKCKESSON CPACS Left [...] Study 08/28/2020 NEELAM Age 60 Visit Number [id number] Gender Female Accession Number [id number] Date of 1960 Referring Tricia Hernandez Room Number 3156 Physician Richard Supply Technician Jarad Mayberry Interpreting Vivek Benitez MD RVT [...] in cm/s ; Diameters are measured in [facility] Venous doppler leg, [id number] 15:52:54[facility] ECHO HEARTLAB MKCKESSON CPACS Left [...] Study 08/28/2020 NEELAM Age 60 Visit Number [id number] Gender Female Accession Number [id number] Date of 1960 Referring [facility] Room Number 6113 Physician Richard Supply Technician Jarad Mayberry Interpreting Vivek Benitez MD RVT [...] in cm/s ; Diameters are measured in [facility] Venous doppler leg, [id number] 15:52:54[facility] ECHO HEARTLAB MKCKESSON CPACS Left Impression1. There [...] Study 08/28/2020 NEELAM Age 60 Visit Number [id number] Gender Female Accession Number [id number] Date of 1960 Referring Tricia Hernandez Room Number 2546 Physician Richard Supply Technician Jarad Mayberry Interpreting Vivek Benitez MD RVT [...] in cm/s ; Diameters are measured in [facility] SARS-COV2/RT-PCR ([facility])2020-08-28 12:32:00 Test Item Value Reference Range Interpretation Comments SARS-COV2/RT-PCR (test Negative Not Detected, Negative, code = 2135546) See external report for linked test SARS-COV-2 PERFORMING LAB [facility] (test code = 3215267) Negative result for this test determines that [...] 564(g) of the Act.Fact Sheet for Healthcare Providers:https://www.[employer]/sites/default/files/product/documents/Fact_Shee c_IG_Stfohigva_Ckfq_DIYL-JmU-3.pdfFact Sheet for Healthcare Patients:https://www.[employer]/sites/default/files/product/ documents/Nsrd_Qgdum_Jnuynxyk_Vgrr_HDKJ-XgH-8.pdfPerforming Laboratory:[facility], [place] [address]RMZGHUCQXRU TIME/INR 2020-08-28 05:15:00 Test Item Value Reference Range Interpretation Comments PROTIME (BEAKER) 16.1 seconds 11.9-14.2 H (test code = 759) INR (BEAKER) (test 1.31 See_Comment [Automat ed message] code = 370) The system [employer] generated this result transmitted ref erence range: [...] 0-0 (BEAKER) (test code = 413) PROTHROMBIN TIME/[id number] 16:24:00 Test Item Value Reference Range Interpretation Comments PROTIME (BEAKER) 14.7 seconds 11.9-14.2 H (test code = 759) INR (BEAKER) (test 1.20 See_Comment [Automat ed message] code = 370) The system [employer] generated this result transmitted ref erence range: [...] 0-0 (BEAKER) (test code = 413) PROTHROMBIN TIME/[id number] 14:53:00 Test Item Value Reference Range Interpretation Comments PROTIME (BEAKER) 10.1 seconds 9.8-12.0 (test code = 759) INR (BEAKER) (test 0.94 See_Comment [Automat ed message] code = 370) The system [employer] generated this result transmitted ref erence range: [...] 0-0 (BEAKER) (test code = 413) PROTHROMBIN TIME/[id number] 19:23:00 Test Item Value Reference Range Interpretation Comments PROTIME (BEAKER) 15.0 seconds 11.9-14.2 H (test code = 759) INR (BEAKER) (test 1.20 See_Comment [Automat ed message] code = 370) The system [employer] generated this result transmitted ref erence range: [...] 0-1 PERCENT (BEAKER) (test code = 2801) [id number] 07:38:00 Test Item Value Reference Range Interpretation Comments PTT (test code = 62.8 See_Comment H [Automated message] 65964-0) The system [employer] generated this result transmitted ref erence range: 22.5 - 3 6.0 seconds. The reference range was not used to int erpret this result as normal/abnormal . Lab Interpretation (test Abnormal code = 59958-5) [facility]aPTT2021-[facility]-11 07:38:00 Test Item Value Reference Range Interpretation Comments PTT (test code = 62.8 See_Comment H [Automated message] 16355-8) The system [employer] generated this result transmitted ref erence range: 22.5 - 3 6.0 seconds. The reference range was not used to int erpret this result as normal/abnormal . Lab Interpretation (test Abnormal code = 96388-1) [facility]TT2021-06-11 07:38:00 Test Item Value Reference Range Interpretation Comments PTT (test code = 62.8 See_Comment H [Automated message] 62099-4) The system [employer] generated this result transmitted ref erence range: 22.5 - 3 6.0 seconds. The reference range was not used to int erpret this result as normal/abnormal . Lab Interpretation (test Abnormal code = 06865-5) [facility]APTT2021-06-11 07:38:00 Test Item Value Reference Range [...] WBC 0-0 (BEAKER) (test code = 413) [id number] 23:09:00 Test Item Value Reference Range Interpretation Comments PARTIAL THROMBOPLASTIN TIME 48.3 seconds 22.5-36.0 H (BEAKER) (test code = 760) [id number] 12:59:00 Test Item Value Reference Range Interpretation Comments PARTIAL THROMBOPLASTIN TIME 33.5 seconds 22.5-36.0 (BEAKER) (test code = 760) Basic Metabolic [id number] 06:56:00 Test Item Value Reference Range Interpretation Comments Sodium (test code = 140 meq/L 867-288 2767-2) Potassium (test 4.4 meq/L 3.5-5.1 code = 2823-3) Chloride (test code 100 meq/L 98-107 = 2075-0) CO2 (test code = 27 meq/L 22-29 2027-9) BUN (test code = 13 mg/dL 7- 3094-0) Creatinine (test 0.81 mg/dL 0.57-1.25 code = 2160-0) Glucose (test code 101 mg/dL 70-105 = 2345-7) Calcium (test code 9.7 mg/dL 8.4-10.2 = 41627-6) EGFR (test code = 87 mL/min/1.[place] [address]-1) NOT ACCURATE CREATININE CLEARANCE IN PREDICTING GLOMERULAR FILTRATION RATE . ESTIMATED GFR I S NOT APPLICABLE FOR DIALYSIS PATIEN TSMaximiliano JESSICA (test code = Senior Electrical Designer ID - JESSICA) [facility] Metabolic [id number] 06:56:00 Test Item Value Reference Range Interpretation Comments Sodium (test code = 140 meq/L 121-428 0894-2) Potassium (test 4.4 meq/L 3.5-5.1 code = 2823-3) Chloride (test code 100 meq/L 98-107 = 2075-0) CO2 (test code = 27 meq/L 2027-11) BUN (test code = 13 mg/dL - 3094-0) Creatinine (test 0.81 mg/dL 0.57-1.25 code = 2160-0) Glucose (test code 101 mg/dL 70-105 = 2345-7) Calcium (test code 9.7 mg/dL 8.4-10.2 = 97690-0) EGFR (test code = 87 mL/min/1.73 sq m [place] [address]-1) NOT ACCURATE CREATININE CLEARANCE IN PREDICTING GLOMERULAR FILTRATION RATE . ESTIMATED GFR I S NOT APPLICABLE FOR DIALYSIS PATIEN TS. JESSICA (test code = Senior Electrical Designer ID - JESSICA) [facility] Metabolic [id number] 06:56:00 Test Item Value Reference Range Interpretation Comments Sodium (test code = 140 meq/L 500-688 1427-2) Potassium (test 4.4 meq/L 3.5-5.1 code = 2823-3) Chloride (test code 100 meq/L 98-107 = 2075-0) CO2 (test code = 27 meq/L 22-29 2028-9) BUN (test code = 13 mg/dL 7-21 3094-0) Creatinine (test 0.81 mg/dL 0.57-1.25 code = 2160-0) Glucose (test code 101 mg/dL 70-105 = 2345-7) Calcium (test code 9.7 mg/dL 8.4-10.2 = 28806-4) EGFR (test code = 87 mL/min/1.73 [place] [address]-5) NOT ACCURATE CREATININE CLEARANCE IN PREDICTING GLOMERULAR FILTRATION RATE . ESTIMATED GFR I S NOT APPLICABLE FOR DIALYSIS PATIEN TS. JESSICA (test code = Senior Electrical Designer ID - JESSICA) BALA Hernandez [facility] METABOLIC [id number] 06:56:00 Test Item Value Reference Range Interpretation [...] S NOT APPLICABLE FOR DIALYSIS PATIEN TS. Senior Electrical Designer ID - BALA MCBC (HEMOGRAM ONLY)2020-08-24 06:41:00 [...] WBC 0-0 (BEAKER) (test code = 413) [id number] 06:32:00 Test Item Value Reference Range Interpretation Comments PARTIAL THROMBOPLASTIN TIME 34.7 seconds 22.5-36.0 (BEAKER) (test code = 760) [id number] 22:03:00 Test Item Value Reference Range Interpretation Comments PARTIAL THROMBOPLASTIN TIME 36.0 seconds 22.5-36.0 (BEAKER) (test code = 760) [id number] 14:36:00 Test Item Value Reference Range Interpretation [...] (BEAKER) (test code = 413) BASIC METABOLIC [id number] 05:47:00 Test Item Value Reference Range Interpretation [...] S NOT APPLICABLE FOR DIALYSIS PATIEN TS. Senior Electrical Designer ID - BAL WCBC (HEMOGRAM ONLY)2020-08-23 05:19:00 [...] = 413) U/S, EXTREMITY, LOWER, LEFT (NON-VASCULAR) [id number] 15:15:00Please obtain biopsy of inguinal mass. Pending discharge Reason for exam:->Large left inguinal mass / lymphadenopathy [facility] 1960 [...] Muniz Verified Date/Time: 08/22/2020 15:15:14 Reading Location: [facility] C013 Consult Reading Room US extremity non-vascular limited [id number] 15:15:00 Interface, External Ris In - 08/22/2020 [...] Muniz Verified Date/Time: 08/22/2020 15:15:14 Reading Location: [facility] C013 Consult Reading Room Electronically signed by: RICK MUNIZ MDon 08/22/2020 03:15 [facility] [id number] 15:15:00Interface, External Ris In - 08/22/2020 3:17 [...] Muniz Verified Date/Time: 08/22/2020 15:15:14 Reading Location: [address] Consult Reading Room Electronically signed by: Cassandra QUIJANO 08/22/2020 03:15 [facility] CenterUS [facility] non- vascular limited afvk1011-37-14 15:15:00Interface, External Ris In - 08/22/2020 3:17 [...] probable retroperitoneal hematoma is not visualized. Signed: Muniz, Rick MDReport Verified Date/Time: 08/22/2020 15:15:14 Reading Location: [facility] C013W Consult Reading Room Electronically signed by: Cassandra QUIJANO 08/22/2020 03:15 [facility] CenterBASIC METABOLIC [id number] 06:22:00 Test Item Value Reference Range Interpretation [...] S NOT APPLICABLE FOR DIALYSIS PATIEN TS. Senior Electrical Designer ID - BALA MCBC (HEMOGRAM ONLY)2020-08-22 05:57:00 [...] (BEAKER) (test code = 413) COMPREHENSIVE METABOLIC [id number] 07:02:00 Test Item Value Reference Range Interpretation [...] S NOT APPLICABLE FOR DIALYSIS PATIEN TS. Senior Electrical Designer ID - BALA MPROTHROMBIN TIME/[id number] 06:42:00 Test Item Value Reference Range Interpretation Comments PROTIME (BEAKER) 13.7 seconds 11.9-14.2 (test code = 759) INR (BEAKER) (test 1.08 See_Comment [Automat ed message] code = 370) The system [employer]al[employer] generated this result transmitted ref erence range: [...] 413) RAD, SPINE, LUMBAR, 2 OR 3 [id number] 20:22:00Reason for exam:->low back pain, fall[facility] : 1960 [...] LEFT 2020-08-20 20:22:00Reason for exam:->knee pain, fall [facility] 1960 Sex: [...] 2-3 VIEWS, LEFT, TO INCL PELVIS WHEN [id number] 20:22:00Reason for exam:->hip pain, fall [facility] : 1960 [...] Date/Time: 08/20/2020 20:22:11 XR hip 2 views [id number] 20:22:00Interface, External Ris In - 08/20/2020 8:24 [...] Prateek Fung MDReport Verified Date/Time: 08/20/2020 20:22:11 [facility]XR [facility] [id number] 20:22:00Interface, External Ris In - 08/20/2020 8:24 [...] Prateek Fung MDReport Verified Date/Time: 08/20/2020 20:22:11 [facility]XR [facility] 2 views left 2020-08-20 20:22:00Interface, External [...] Prateek Fung MDReport Verified Date/Time: 08/20/2020 20:22:11 [facility] lumbar 2 or 3 [id number] 20:22:00Interface, External Ris In - 08/20/2020 8:24 [...] Prateek Fung MDR[place] Verified Date/Time: 08/20/2020 20:22:11 [facility] lumbar 2 or 3 [id number] 20:22:00Interface, External Ris In - 08/20/2020 8:24 [...] Prateek Fung [place] Verified Date/Time: 08/20/2020 20:22:11 [facility]XR [facility] lumbar 2 or 3 [id number] 20:22:00Interface, External Ris In - 08/20/2020 8:24 [...] Prateek Fung [place] Verified Date/Time: 08/20/2020 20:22:11 [facility] 3 views left 2020-08-20 [...] Prateek Fung [place] Verified Date/Time: 08/20/2020 20:22:11 [facility] 3 views [id number] 20:22:00Interface, External Ris In - 08/20/2020 8:24 [...] Prateek Fung [place] Verified Date/Time: 08/20/2020 20:22:11 [facility] 3 views left 2020-08-20 [...] Prateek Fung [place] Verified Date/Time: 08/20/2020 20:22:11 [facility] CenterLactate dehydrogenase (LDH)2020-08-20 15:47:00 Test Item Value Reference Range Interpretation Comments LDH (test code = 2532-0) 228 U/L 125-220 H JESSICA (test code = JESSICA) Senior Electrical Designer ID - DB Lab Interpretation (test Abnormal code = 46012-4) [facility] HospitalMagnesium2021-06-[facility] 15:47:00 Test Item Value Reference Range Interpretation Comments Magnesium (test code = 2.2 mg/dL 1.6-2.6 76751-1) JESSICA (test code = JESSICA) Senior Electrical Designer ID - DB Lab Interpretation (test Normal code = 52557-2) [facility] HospitalPhosphorus2021-06-06 15:47:00 Test Item Value Reference Range Interpretation Comments Phosphorus (test code = 3.1 mg/dL 2.3-4.7 2777-1) JESSICA (test code = JESSICA) Senior Electrical Designer ID - DB Lab Interpretation (test Normal code = 68830-7) [facility] HospitalUric [id number] 15:47:00 Test Item Value Reference Range Interpretation Comments Uric Acid (test code = 5.1 mg/dL 2.6-7.2 3084-1) JESSICA (test code = JESSICA) Senior Electrical Designer ID - DB Lab Interpretation (test Normal code = 72330-0) [facility] [facility]2020-08-20 15:47:00 Test Item Value Reference Range Interpretation Comments LDH (test code = 2532-0) 228 U/L 125-220 H JESSICA (test code = JESSICA) Senior Electrical Designer ID - DB Lab Interpretation (test Abnormal code = 35086-8) [facility] 15:47:00 Test Item Value Reference Range Interpretation Comments Magnesium (test code = 2.2 mg/dL 1.6-2.6 75447-3) JESSICA (test code = JESSICA) Senior Electrical Designer ID - DB Lab Interpretation (test Normal code = 87878-8) [facility] 15:47:00 Test Item Value Reference Range Interpretation Comments Phosphorus (test code = 3.1 mg/dL 2.3-4.7 2777-1) JESSICA (test code = JESSICA) Senior Electrical Designer ID - DB Lab Interpretation (test Normal code = 49407-6) [facility] [id number] 15:47:00 Test Item Value Reference Range Interpretation Comments Uric Acid (test code = 5.1 mg/dL 2.6-7.2 3084-1) JESSICA (test code = JESSICA) Senior Electrical Designer ID - DB Lab Interpretation (test Normal code = 42766-1) [facility] ([facility])2020-08-20 15:47:00 Test Item Value Reference Range Interpretation Comments LDH (test code = 2532-0) 228 U/L 125-220 H JESSICA (test code = JESSICA) Senior Electrical Designer ID - DB Lab Interpretation (test Abnormal code = 27760-7) [facility] 15:47:00 Test Item Value Reference Range Interpretation Comments Magnesium (test code = 2.2 mg/dL 1.6-2.6 82544-9) JESSICA (test code = JESSICA) Senior Electrical Designer ID - DB Lab Interpretation (test Normal code = 29205-3) [facility] 15:47:00 Test Item Value Reference Range Interpretation Comments Phosphorus (test code = 3.1 mg/dL 2.3-4.7 2777-1) JESSICA (test code = JESSICA) Senior Electrical Designer ID - DB Lab Interpretation (test Normal code = 93116-9) [facility] [id number] 15:47:00 Test Item Value Reference Range Interpretation Comments Uric Acid (test code = 5.1 mg/dL 2.6-7.2 3084-1) JESSICA (test code = JESSICA) Senior Electrical Designer ID - DB Lab Interpretation (test Normal code = 32483-0) [facility]COMPRE[facility] MET[facility]OL[facility] [id number] 15:47:00 Test Item Value Reference Range Interpretation [...] S NOT APPLICABLE FOR DIALYSIS PATIEN TS. Senior Electrical Designer ID - [id number] 15:47:00 Test Item Value Reference Range Interpretation Comments MAGNESIUM (BEAKER) (test code = 2.2 mg/dL 1.6-2.6 627) Senior Electrical Designer ID - [id number] 15:47:00 Test Item Value Reference Range Interpretation Comments PHOSPHORUS (BEAKER) (test code = 3.1 mg/dL 2.3-4.7 604) Senior Electrical Designer ID - DBURIC [id number] 15:47:00 Test Item Value Reference Range Interpretation Comments URIC ACID (BEAKER) (test code = 5.1 mg/dL 2.6-7.2 773) Senior Electrical Designer ID - DBLACTATE DEHYDROGENASE (LDH)2020-08-20 15:47:00 Test Item Value Reference Range Interpretation Comments LACTATE DEHYDROGENASE (BEAKER) (test 228 U/L 125-220 H code = 635) Senior Electrical Designer ID - DBCBC W/PLT COUNT & AUTO [id number] 15:26:00 Test Item Value Reference Range Interpretation [...] (test code = 2801) AFB CULTURE + [id number] 17:40:00 Test Item Value Reference Range Interpretation Comments CULTURE (BEAKER) (test No acid-fast bacilli code = 1095) isolated in 42 days AFB SMEAR (BEAKER) No acid fast bacilli (test code = 994) seen AFB CULTURE + [id number] 16:47:00 Test Item Value Reference Range Interpretation Comments CULTURE (BEAKER) (test No acid-fast bacilli code = 1095) isolated in 42 days AFB SMEAR (BEAKER) No acid fast bacilli (test code = 994) seen FUNGUS CULTURE + [id number] 17:06:00 Test Item Value Reference Range Interpretation Comments CULTURE (BEAKER) (test No fungus isolated in code = 1095) 28 days FUNGUS SMEAR (BEAKER) No fungi seen (test code = 1406) FUNGUS CULTURE + [id number] 20:59:00 Test Item Value Reference Range Interpretation Comments CULTURE (BEAKER) (test No fungus isolated in code = 1095) 28 days FUNGUS SMEAR (BEAKER) No fungi seen (test code = 1406) POCT-GLUCOSE [id number] 17:00:00 Test Item Value Reference Range Interpretation Comments POC-GLUCOSE METER 193 mg/dL 70-110 H TESTED AT [facility] [address] (BEAKER) (test code [facility] = 1538) [place] [address] POCT-GLUCOSE [id number] 11:50:00 Test Item Value Reference Range Interpretation Comments POC-GLUCOSE METER 185 mg/dL 70-110 H TESTED AT [facility] [address] (BEAKER) (test code [facility] = 1538) [place] [address] CBC W/PLT COUNT & AUTO [id number] 09:22:00 Test Item Value Reference Range Interpretation [...] (BEAKER) (test code = 2801) BASIC METABOLIC [id number] 09:21:00 Test Item Value Reference Range Interpretation [...] NOT APPLICABLE FOR DIALYSIS PATIEN TS. C-REACTIVE [id number] 09:21:00 Test Item Value Reference Range Interpretation Comments C-REACTIVE PROTEIN (BEAKER) (test 2.31 mg/dL 0.00-0.50 H code = 676) HEPATIC FUNCTION [id number] 09:20:00 Test Item Value Reference Range Interpretation [...] code = 47 U/L 6-50 347) POCT-GLUCOSE [id number] 06:53:00 Test Item Value Reference Range Interpretation Comments POC-GLUCOSE METER 102 mg/dL 70-110 TESTED AT [facility] [address] ([place]) (test code [facility] = 1538) [place] [address] POCT-GLUCOSE [id number] 21:32:00 Test Item Value Reference Range Interpretation Comments POC-GLUCOSE METER 212 mg/dL 70-110 H TESTED AT [facility] [address] ([place]) (test code [facility] = 1538) [place] [address] POCT-GLUCOSE [id number] 16:26:00 Test Item Value Reference Range Interpretation Comments POC-GLUCOSE METER 170 mg/dL 70-110 H TESTED AT [facility] [address] ([place]) (test code [facility] = 1538) [place] [address] POCT-GLUCOSE [id number] 05:53:00 Test Item Value Reference Range Interpretation Comments POC-GLUCOSE METER 90 mg/dL 70-110 TESTED AT [facility] [address] ([place]) (test code = [facility] 1530) [place] [address] POCT-GLUCOSE [id number] 21:52:00 Test Item Value Reference Range Interpretation Comments POC-GLUCOSE METER 130 mg/dL 70-110 H TESTED AT [facility] [address] ([place]) (test code [facility] = 1538) [place] [address] POCT-GLUCOSE [id number] 17:16:00 Test Item Value Reference Range Interpretation Comments POC-GLUCOSE METER 177 mg/dL 70-110 H TESTED AT [facility] [address] ([place]) (test code [facility] = 1538) [place] [address] [id number] 16:02:00 Test Item Value Reference Range Interpretation Comments POTASSIUM ([facility]) (test code = 3.9 meq/L 3.5-5.5 379) POCT-GLUCOSE [id number] 12:10:00 Test Item Value Reference Range Interpretation Comments POC-GLUCOSE METER 176 mg/dL 70-110 H TESTED AT [facility] [address] ([place]) (test code [facility] = 1538) [place] [address] POCT-GLUCOSE [id number] 05:57:00 Test Item Value Reference Range Interpretation Comments POC-GLUCOSE METER 113 mg/dL 70-110 H TESTED AT [facility] [address] (BEAKER) (test code [facility] = 1538) [place] [address] POCT-GLUCOSE [id number] 21:53:00 Test Item Value Reference Range Interpretation Comments POC-GLUCOSE METER 160 mg/dL 70-110 H TESTED AT [facility] [address] (BEAKER) (test code [facility] = 1538) [place] [address] POCT-GLUCOSE [id number] 16:49:00 Test Item Value Reference Range Interpretation Comments POC-GLUCOSE METER 158 mg/dL 70-110 H TESTED AT [facility] [address] (BEAKER) (test code [facility] = 1538) [place] [address] POCT-GLUCOSE [id number] 12:14:00 Test Item Value Reference Range Interpretation Comments POC-GLUCOSE METER 162 mg/dL 70-110 H TESTED AT [facility] [address] (BEAKER) (test code [facility] = 1538) [place] [address] BASIC METABOLIC [id number] 04:57:00 Test Item Value Reference Range Interpretation [...] PATIEN TS. CBC W/PLT COUNT & AUTO [id number] 04:28:00 Test Item Value Reference Range Interpretation [...] EOSINOPHILS ABSOLUTE 0.12 K/ L 0.00-0.50 COUNT (BANNER) (test code = 416) BASOPHILS ABSOLUTE 0.01 K/ L 0.00-0.20 COUNT (BANNER) (test code = 417) IMMATURE 1 % 0-0 H GRANULOCYTES-RELATIVE PERCENT (BANNER) (test code = 2801) POCT-GLUCOSE [id number] 20:44:00 Test Item Value Reference Range Interpretation Comments POC-GLUCOSE METER 168 mg/dL 70-110 H TESTED AT [facility] [address] ([place]) (test code [facility] = 1538) [place] [address] POCT-GLUCOSE [id number] 16:10:00 Test Item Value Reference Range Interpretation Comments POC-GLUCOSE METER 228 mg/dL 70-110 H TESTED AT [facility] [address] ([place]) (test code [facility] = 1538) [place] [address] POCT-GLUCOSE [id number] 13:15:00 Test Item Value Reference Range Interpretation Comments POC-GLUCOSE METER 182 mg/dL 70-110 H TESTED AT [facility] [address] ([place]) (test code [facility] = 1538) [place] [address] POCT-GLUCOSE [id number] 06:57:00 Test Item Value Reference Range Interpretation Comments POC-GLUCOSE METER 153 mg/dL 70-110 H TESTED AT [facility] [address] ([place]) (test code [facility] = 1538) [place] [address] POCT-GLUCOSE [id number] 21:27:00 Test Item Value Reference Range Interpretation Comments POC-GLUCOSE METER 146 mg/dL 70-110 H TESTED AT [facility] [address] ([place]) (test code [facility] = 1538) [place] [address] POCT-GLUCOSE [id number] 17:17:00 Test Item Value Reference Range Interpretation Comments POC-GLUCOSE METER 134 mg/dL 70-110 H TESTED AT [facility] [address] ([place]) (test code [facility] = 1538) [place] [address] POCT-GLUCOSE [id number] 13:49:00 Test Item Value Reference Range Interpretation Comments POC-GLUCOSE METER 177 mg/dL 70-110 H TESTED AT [facility] [address] ([place]) (test code [facility] = 1538) [place] [address] POCT-GLUCOSE [id number] 05:34:00 Test Item Value Reference Range Interpretation Comments POC-GLUCOSE METER 118 mg/dL 70-110 H TESTED AT [facility] [address] ([place]) (test code [facility] = 1538) [place] [address] POCT-GLUCOSE [id number] 21:14:00 Test Item Value Reference Range Interpretation Comments POC-GLUCOSE METER 149 mg/dL 70-110 H TESTED AT [facility] [address] ([place]) [facility] [place] [address] POCT-GLUCOSE [id number] 17:44:00 Test Item Value Reference Range Interpretation Comments POC-GLUCOSE METER 132 mg/dL 70-110 H TESTED AT [facility] [address] ([place]) ([facility] [address] [place] [address] POCT-GLUCOSE [id number] 12:21:00 Test Item Value Reference Range Interpretation Comments POC-GLUCOSE METER 168 mg/dL 70-110 H TESTED AT [facility] [address] ([place]) ([facility] [place] [address] [id number] 05:19:00 Test Item Value Reference Range Interpretation Comments PARTIAL THROMBOPLASTIN TIME 84.3 seconds 23.2-36.1 H (BANNER) (test code = 760) POCT-GLUCOSE [id number] 20:50:00 Test Item Value Reference Range Interpretation Comments POC-GLUCOSE METER 147 mg/dL 70-110 H TESTED AT [facility] [address] ([place]) ([facility] [place] [address] POCT-GLUCOSE [id number] 17:19:00 Test Item Value Reference Range Interpretation Comments POC-GLUCOSE METER 238 mg/dL 70-110 H TESTED AT [facility] [address] ([place]) ([facility] [address] [place] [address] [id number] 15:09:00 Test Item Value Reference Range Interpretation Comments PARTIAL THROMBOPLASTIN TIME 74.8 seconds 23.2-36.1 H (BANNER) (test code = 760) POCT-GLUCOSE [id number] 11:57:00 Test Item Value Reference Range Interpretation Comments POC-GLUCOSE METER 146 mg/dL 70-110 H TESTED AT [facility] [address] (BEAKER) (test code [facility] = 1538) [place] [address] POCT-GLUCOSE [id number] 05:37:00 Test Item Value Reference Range Interpretation Comments POC-GLUCOSE METER 139 mg/dL 70-110 H TESTED AT [facility] [address] (BEAKER) (test code [facility] = 1538) [place] [address] BASIC METABOLIC [id number] 04:04:00 Test Item Value Reference Range Interpretation [...] S NOT APPLICABLE FOR DIALYSIS PATIEN TS. [id number] 04:02:00 Test Item Value Reference Range Interpretation Comments PARTIAL THROMBOPLASTIN TIME 76.5 seconds 23.2-36.1 H (BEAKER) (test code = 760) CBC W/PLT COUNT & AUTO [id number] 03:41:00 Test Item Value Reference Range Interpretation [...] PERCENT (BEAKER) (test code = 2801) POCT-GLUCOSE [id number] 22:12:00 Test Item Value Reference Range Interpretation Comments POC-GLUCOSE METER 247 mg/dL 70-110 H TESTED AT [facility] [address] ([facility] (test code [facility] = 1538) [place] [address] [id number] 21:11:00 Test Item Value Reference Range Interpretation Comments PARTIAL THROMBOPLASTIN TIME 62.4 seconds 23.2-36.1 H (BEAKER) (test code = 760) [id number] 12:45:00 Test Item Value Reference Range Interpretation Comments PARTIAL THROMBOPLASTIN TIME 101.2 seconds 23.2-36.1 H (BEAKER) (test code = 760) POCT-GLUCOSE [id number] 11:48:00 Test Item Value Reference Range Interpretation Comments POC-GLUCOSE METER 259 mg/dL 70-110 H TESTED AT [facility] [address] ([place]) (test code [facility] = 1538) [place] [address] POCT-GLUCOSE [id number] 05:38:00 Test Item Value Reference Range Interpretation Comments POC-GLUCOSE METER 121 mg/dL 70-110 H TESTED AT [facility] [address] ([place]) (test code [facility] = 1538) [place] [address] [id number] 05:33:00 Test Item Value Reference Range Interpretation Comments PARTIAL THROMBOPLASTIN TIME 108.5 seconds 23.2-36.1 H (BEAKER) (test code = 760) POCT-GLUCOSE [id number] 20:59:00 Test Item Value Reference Range Interpretation Comments POC-GLUCOSE METER 197 mg/dL 70-110 H TESTED AT [facility] [address] ([place]) (test code [facility] = 1538) [place] [address] POCT-GLUCOSE [id number] 16:47:00 Test Item Value Reference Range Interpretation Comments POC-GLUCOSE METER 150 mg/dL 70-110 H TESTED AT [facility] [address] ([place]) (test code [facility] = 1538) [place] [address] [id number] 15:21:00 Test Item Value Reference Range Interpretation Comments PARTIAL THROMBOPLASTIN TIME 79.9 seconds 23.2-36.1 H (BEAKER) (test code = 760) POCT-GLUCOSE [id number] 12:52:00 Test Item Value Reference Range Interpretation Comments POC-GLUCOSE METER 207 mg/dL 70-110 H TESTED AT [facility] [address] (BEAKER) (test code [facility] = 1538) [place] [address] [id number] 09:17:00 Test Item Value Reference Range Interpretation Comments PARTIAL THROMBOPLASTIN TIME 95.7 seconds 23.2-36.1 H (BEAKER) (test code = 760) BASIC METABOLIC [id number] 02:36:00 Test Item Value Reference Range Interpretation [...] S NOT APPLICABLE FOR DIALYSIS PATIEN TS. [id number] 02:26:00 Test Item Value Reference Range Interpretation Comments PARTIAL THROMBOPLASTIN TIME 104.6 seconds 23.2-36.1 H (BEAKER) (test code = 760) CBC W/PLT COUNT & AUTO [id number] 02:18:00 Test Item Value Reference Range Interpretation [...] PERCENT (BEAKER) (test code = 2801) POCT-GLUCOSE [id number] 22:17:00 Test Item Value Reference Range Interpretation Comments POC-GLUCOSE METER 211 mg/dL 70-[place] [address] [address] (BEAKER) (test code [facility] = 1538) [place] [address] [id number] 20:16:00 Test Item Value Reference Range Interpretation Comments PARTIAL THROMBOPLASTIN TIME 107.2 seconds 23.2-36.1 H (BEAKER) (test code = 760) POCT-GLUCOSE [id number] 16:24:00 Test Item Value Reference Range Interpretation Comments POC-GLUCOSE METER 167 mg/dL 70-110 H TESTED AT [facility] [address] (BEAKER) (test code [facility] = 1538) [place] [address] [id number] 14:17:00 Test Item Value Reference Range Interpretation Comments PARTIAL THROMBOPLASTIN TIME 96.3 seconds 23.2-36.1 H (BEAKER) (test code = 760) POCT-GLUCOSE [id number] 11:40:00 Test Item Value Reference Range Interpretation Comments POC-GLUCOSE METER 190 mg/dL 70-110 H TESTED AT [facility] [address] (BEAKER) (test code [facility] = 1538) [place] [address] [id number] 07:52:00 Test Item Value Reference Range Interpretation Comments PARTIAL THROMBOPLASTIN TIME 58.0 seconds 23.2-36.1 H (BEAKER) (test code = 760) BASIC METABOLIC [id number] 06:09:00 Test Item Value Reference Range Interpretation [...] I S NOT APPLICABLE FOR DIALYSIS PATIEN [id number] 05:53:00 Test Item Value Reference Range Interpretation Comments PARTIAL THROMBOPLASTIN TIME 138.1 seconds 23.2-36.1 H (BEAKER) (test code = 760) CBC W/PLT COUNT & AUTO [id number] 05:45:00 Test Item Value Reference Range Interpretation [...] GRANULOCYTES-RELATIVE PERCENT (BEAKER) (test code = 2801) [id number] 23:56:00 Test Item Value Reference Range Interpretation Comments PARTIAL THROMBOPLASTIN TIME 96.6 seconds 23.2-36.1 H (BEAKER) (test code = 760) POCT-GLUCOSE [id number] 21:22:00 Test Item Value Reference Range Interpretation Comments POC-GLUCOSE METER 160 mg/dL 70-110 H TESTED AT [facility] [address] ([facility]) (test code [facility] = 1538) [place] [address] POCT-GLUCOSE [id number] 17:27:00 Test Item Value Reference Range Interpretation Comments POC-GLUCOSE METER 151 mg/dL 70-110 H TESTED AT [facility] [address] ([facility]) (test code [facility] = 1538) [place] [address] [id number] 16:40:00 Test Item Value Reference Range Interpretation Comments PARTIAL THROMBOPLASTIN TIME 40.0 seconds 23.2-36.1 H (BEAKER) (test code = 760) POCT-GLUCOSE [id number] 13:43:00 Test Item Value Reference Range Interpretation Comments POC-GLUCOSE METER 164 mg/dL 70-110 H TESTED AT [facility] [address] (BEAKER) (test code [facility] = 1538) [place] [address] [id number] 13:34:00 Test Item Value Reference Range Interpretation Comments PARTIAL THROMBOPLASTIN TIME 141.6 seconds 23.2-36.1 H (BEAKER) (test code = 760) OCCULT BLOOD, [id number] 13:20:00 Test Item Value Reference Range Interpretation Comments FECAL OCCULT BLOOD (BEAKER) (test Negative Negative code = 618) BASIC METABOLIC [id number] 12:13:00 Test Item Value Reference Range Interpretation [...] APPLICABLE FOR DIALYSIS PATIEN TS. HEPATIC FUNCTION [id number] 12:13:00 Test Item Value Reference Range Interpretation [...] 6-50 347) CBC W/PLT COUNT & AUTO [id number] 11:47:00 Test Item Value Reference Range Interpretation [...] GRANULOCYTES-RELATIVE PERCENT (BEAKER) (test code = 2801) [id number] 06:33:00 Test Item Value Reference Range Interpretation Comments PARTIAL THROMBOPLASTIN TIME 102.3 seconds 23.2-36.1 H (BEAKER) (test code = 760) POCT-GLUCOSE [id number] 05:47:00 Test Item Value Reference Range Interpretation Comments POC-GLUCOSE METER 151 mg/dL 70-110 H TESTED AT [facility] [address] (BEAKER) (test code [facility] = 1538) [place] [address] BASIC METABOLIC [id number] 01:16:00 Test Item Value Reference Range Interpretation [...] S NOT APPLICABLE FOR DIALYSIS PATIEN TS. [id number] 01:06:00 Test Item Value Reference Range Interpretation Comments PARTIAL THROMBOPLASTIN TIME 46.8 seconds 23.2-36.1 H (BEAKER) (test code = 760) [id number] 23:18:00 Test Item Value Reference Range Interpretation Comments PARTIAL THROMBOPLASTIN TIME 177.9 seconds 23.2-36.1 HH (BEAKER) (test code = 760) POCT-GLUCOSE [id number] 22:05:00 Test Item Value Reference Range Interpretation Comments POC-GLUCOSE METER 204 mg/dL 70-110 H TESTED AT [facility] [address] (BEAKER) (test code [facility] = 1538) [place] [address] [id number] 16:35:00 Test Item Value Reference Range Interpretation Comments PARTIAL THROMBOPLASTIN TIME 47.9 seconds 23.2-36.1 H (BEAKER) (test code = 760) POCT-GLUCOSE [id number] 16:33:00 Test Item Value Reference Range Interpretation Comments POC-GLUCOSE METER 167 mg/dL 70-110 H TESTED AT [facility] [address] (BEAKER) (test code [facility] = 1538) [place] [address] [id number] 15:11:00 Test Item Value Reference Range Interpretation Comments PARTIAL THROMBOPLASTIN TIME 198.7 seconds 23.2-36.1 HH (BEAKER) (test code = 760) POCT-GLUCOSE [id number] 12:08:00 Test Item Value Reference Range Interpretation Comments POC-GLUCOSE METER 166 mg/dL 70-110 H TESTED AT [facility] [address] (BEAKER) (test code [facility] = 1538) [place] [address] [id number] 07:27:00 Test Item Value Reference Range Interpretation Comments PARTIAL THROMBOPLASTIN TIME 65.6 seconds 23.2-36.1 H (BEAKER) (test code = 760) [id number] 05:59:00 Test Item Value Reference Range Interpretation Comments PARTIAL THROMBOPLASTIN TIME 156.1 seconds 23.2-36.1 HH (BEAKER) (test code = 760) BASIC METABOLIC [id number] 05:54:00 Test Item Value Reference Range Interpretation [...] NOT APPLICABLE FOR DIALYSIS PATIEN TS. POCT-GLUCOSE [id number] 05:45:00 Test Item Value Reference Range Interpretation Comments POC-GLUCOSE METER 145 mg/dL 70-110 H TESTED AT [facility] [address] ([place]) (test code [facility] = 1538) [place] [address] CBC W/PLT COUNT & AUTO [id number] 05:36:00 Test Item Value Reference Range Interpretation [...] PERCENT (BEAKER) (test code = 2801) POCT-GLUCOSE [id number] 20:29:00 Test Item Value Reference Range Interpretation Comments POC-GLUCOSE METER 128 mg/dL 70-110 H TESTED AT [facility] [address] ([place]) (test code [facility] = 1538) [place] [address] POCT-GLUCOSE [id number] 16:58:00 Test Item Value Reference Range Interpretation Comments POC-GLUCOSE METER 160 mg/dL 70-110 H TESTED AT [facility] [address] ([place]) (test code [facility] = 1538) [place] [address] POCT-GLUCOSE [id number] 11:58:00 Test Item Value Reference Range Interpretation Comments POC-GLUCOSE METER 163 mg/dL 70-110 H TESTED AT [address] ([place]) (test code [facility] = 1538) [place] [address] [id number] 05:25:00 Test Item Value Reference Range Interpretation Comments PARTIAL THROMBOPLASTIN TIME 79.6 seconds 23.2-36.1 H (BANNER) (test code = 760) CBC W/PLT COUNT & AUTO [id number] 05:18:00 Test Item Value Reference Range Interpretation [...] GRANULOCYTES-RELATIVE PERCENT (BEAKER) (test code = 2801) [id number] 21:47:00 Test Item Value Reference Range Interpretation Comments PARTIAL THROMBOPLASTIN TIME 85.4 seconds 23.2-36.1 H (BEAKER) (test code = 760) POCT-GLUCOSE [id number] 16:24:00 Test Item Value Reference Range Interpretation Comments POC-GLUCOSE METER 189 mg/dL 70-110 H TESTED AT [facility] [address] (BANNER) (test code [facility] = 1538) [place] [address] [id number] 13:02:00 Test Item Value Reference Range Interpretation Comments PARTIAL THROMBOPLASTIN TIME 51.8 seconds 23.2-36.1 H (BEAKER) (test code = 760) POCT-GLUCOSE [id number] 11:41:00 Test Item Value Reference Range Interpretation Comments POC-GLUCOSE METER 169 mg/dL 70-110 H TESTED AT [facility] [address] (BANNER) (test code [facility] = 1538) [place] [address] VITAMIN D, [id number] 08:15:00 Test Item Value Reference Range Interpretation Comments VITAMIN D 25-OH (AKER) (test code 5.4 ng/mL 6.6-49.9 L = 2764) Effective 12/25/2016: Reference Range ChangeNew: 6.6-49.9 ng/mL Previous: 13.0-47.8 ng/mLRecommended Vitamin D Target Range: 30.0-40.0 ng/mLPOCT-GLUCOSE [id number] 06:20:00 Test Item Value Reference Range Interpretation Comments POC-GLUCOSE METER 158 mg/dL 70-110 H TESTED AT [facility] [address] (BANNER) (test code [facility] = 1538) [place] [address] HEPATIC FUNCTION [id number] 05:45:00 Test Item Value Reference Range Interpretation [...] Specimen markedly (test code = 347) hemolyzed [id number] 05:30:00 Test Item Value Reference Range Interpretation Comments PARTIAL THROMBOPLASTIN TIME 63.3 seconds 23.2-36.1 H (BEAKER) (test code = 760) Prior to initiating heparinCBC W/PLT COUNT & AUTO [id number] 05:23:00 Test Item Value Reference Range Interpretation [...] GRANULOCYTES-RELATIVE PERCENT (BEAKER) (test code = 2801) [id number] 00:59:00 Test Item Value Reference Range Interpretation Comments PARTIAL THROMBOPLASTIN TIME 62.3 seconds 23.2-36.1 H (BEAKER) (test code = 760) POCT-GLUCOSE [id number] 21:34:00 Test Item Value Reference Range Interpretation Comments POC-GLUCOSE METER 196 mg/dL 70-110 H TESTED AT [facility] [address] (BEAKER) (test code [facility] = 1538) [place] [address] [id number] 18:14:00 Test Item Value Reference Range Interpretation Comments PARTIAL THROMBOPLASTIN TIME 82.3 seconds 23.2-36.1 H (BEAKER) (test code = 760) POCT-GLUCOSE [id number] 17:01:00 Test Item Value Reference Range Interpretation Comments POC-GLUCOSE METER 192 mg/dL 70-110 H TESTED AT [facility] [address] (BEAKER) (test code [facility] = 1538) [place] [address] POCT-GLUCOSE [id number] 13:29:00 Test Item Value Reference Range Interpretation Comments POC-GLUCOSE METER 207 mg/dL 70-110 H TESTED AT [facility] [address] (BEAKER) (test code [facility] = 1538) [place] [address] [id number] 12:48:00 Test Item Value Reference Range Interpretation Comments PARTIAL THROMBOPLASTIN TIME 63.3 seconds 23.2-36.1 H (BEAKER) (test code = 760) CBC W/PLT COUNT & AUTO [id number] 12:25:00 Test Item Value Reference Range Interpretation [...] PERCENT (BEAKER) (test code = 2801) POCT-GLUCOSE [id number] 06:40:00 Test Item Value Reference Range Interpretation Comments POC-GLUCOSE METER 166 mg/dL 70-110 H TESTED AT [facility] [address] (BANNER) (test code [facility] = 1538) [place] [address] BUN AND [id number] 06:07:00 Test Item Value Reference Range Interpretation Comments BLOOD UREA NITROGEN 15 mg/dL 10-26 (BANNER) (test code = 354) CREATININE (AKER) 0.62 mg/dL 0.50-1.20 (test code = 358) EGFR (BANNER) (test 120 mL/min/1.73 ESTIM ATED GFR IS code = 1092) sq m NOT ACCURATE CREATININE CLEARANCE IN PREDICTING GLOMERULAR FILTRATION RATE . ESTIMATED GFR I S NOT APPLICABLE FOR DIALYSIS PATIEN TS. Please draw first BUN/ S Creat with the 12 noon Amikacin Blood level draw. Thank [id number] 05:48:00 Test Item Value Reference Range Interpretation Comments PARTIAL THROMBOPLASTIN TIME 60.0 seconds 23.2-36.1 H (BANNER) (test code = 760) ANTI-NUCLEAR ANTIBODY (TAMMI)[id number] 00:24:00 Test Item Value Reference Range Interpretation Comments ANTI-NUCLEAR ANTIBODY (TAMMI) (BANNER) Negative Negative (test code = 418) Test performed by IFA method.Test performed by IFA method.[id number] 23:01:00 Test Item Value Reference Range Interpretation Comments PARTIAL THROMBOPLASTIN TIME 58.3 seconds 23.2-36.1 H (BEAKER) (test code = 760) POCT-GLUCOSE [id number] 21:22:00 Test Item Value Reference Range Interpretation Comments POC-GLUCOSE METER 171 mg/dL 70-110 H TESTED AT [facility] [address] (BEAKER) (test code [facility] = 1538) [place] [address] POCT-GLUCOSE [id number] 16:54:00 Test Item Value Reference Range Interpretation Comments POC-GLUCOSE METER 135 mg/dL 70-110 H TESTED AT [facility] [address] (BEAKER) (test code [facility] = 1538) [place] [address] PERIPHERAL BLOOD SMEAR - PATHOLOGIST [id number] 15:35:00 Test Item Value Reference Range Interpretation Comments PERIPHERAL SMR REVIEW Neutrophilic (BEAKER) (test code = leukocytosis with 2640) increased band forms and unremarkable WBC morphology. Normocytic anemia with unremarkable RBCs. Platelets unremarkable. No dysmorphic or blast forms seen. [id number] Nazario Becker M.D. (BEAKER) (test code = [...] (BEAKER) (test code = 1+ few 480) [id number] 15:21:00 Test Item Value Reference Range Interpretation Comments PARTIAL THROMBOPLASTIN TIME 39.3 seconds 23.2-36.1 H (BEAKER) (test code = 760) POCT-GLUCOSE [id number] 13:08:00 Test Item Value Reference Range Interpretation Comments POC-GLUCOSE METER 140 mg/dL 70-110 H TESTED AT [facility] [address] (BEAKER) (test code [facility] = 1538) [place] [address] CBC W/PLT COUNT & AUTO [id number] 09:33:00 Test Item Value Reference Range Interpretation [...] (BEAKER) (test code = 413) BUN AND [id number] 08:45:00 Test Item Value Reference Range Interpretation Comments BLOOD UREA NITROGEN 12 mg/dL 10-26 (BANNER) (test code = 354) CREATININE (BANNER) 0.61 mg/dL 0.50-1.20 (test code = 358) EGFR (BANNER) (test 123 mL/min/1.73 ESTIM ATED GFR IS code = 1092) sq m NOT ACCURATE CREATININE CLEARANCE IN PREDICTING GLOMERULAR FILTRATION RATE . ESTIMATED GFR I S NOT APPLICABLE FOR DIALYSIS PATIEN TS. Please draw first BUN/ S Creat with the 12 noon Amikacin Blood level draw. Thank [id number] 08:27:00 Test Item Value Reference Range Interpretation Comments PARTIAL THROMBOPLASTIN TIME 29.5 seconds 23.2-36.1 (BANNER) (test code = 760) POCT-GLUCOSE [id number] 04:48:00 Test Item Value Reference Range Interpretation Comments POC-GLUCOSE METER 142 mg/dL 70-110 H TESTED AT [facility] [address] (BANNER) (test code [facility] = 1538) [place] [address] RHEUMATOID FACTOR AB, REFLEX TO [id number] 01:10:00 Test Item Value Reference Range Interpretation Comments RHEUMATOID FACTOR (BANNER) (test Negative code = 573) [id number] 00:56:00 Test Item Value Reference Range Interpretation Comments PROTIME (BANNER) (test code = 17.9 seconds 11.8-14.4 H 759) INR (BANNER) (test code = 370) 1.4 1.2-1.5 PARTIAL THROMBOPLASTIN TIME 48.9 seconds 23.2-36.1 H (BANNER) (test code = 760) RECOMMENDED COUMADIN/WARFARIN INR THERAPY RANGESSTANDARD DOSE: 2.0 - 3.0 Includes: PROPHYLAXIS forvenous thrombosis, systemic embolization; TREATMENT for venous thrombosis and/or pulmonary embolus.HIGH RISK: Target INR is 2.5-3.5 for patients with mechanical heart valves.VENOUS DOPPLER LEGS, [id number] 22:05:00Reason for exam:->leukocytosis persistentFINAL REPORT CLINICAL HISTORY: [...] extremity without deep venous thrombosis. Signed: Fide Machucaeport Verified Date/Time: 11/18/2017 22:05:25 Reading Location: [address] Reading Room POCT-GLUCOSE [id number] 20:56:00 Test Item Value Reference Range Interpretation Comments POC-GLUCOSE METER 111 mg/dL 70-110 H TESTED AT [facility] [address] (BANNER) (test code [facility] = 1538) [place] [address] AMIKACIN LEVEL, [id number] 17:26:00 Test Item Value Reference Range Interpretation Comments AMIKACIN, TROUGH (BANNER) (test 10.3 ug/mL 4.0-8.0 HH code = 1830) Therapeutic Range (ug/mL)Peak: 25.0-35.0Trough: 4.0-8.0 Toxic: >35.0VENOUS DOPPLER ARMS, [id number] 16:59:00Reason for exam:->swelling right handAddendum BeginsREPORT STATUS:A Addendum:A left-sided PICC is visualized. End of addendum. Signed: Dangelo Proctoreport Verified Date/Time: 11/18/2017 16:59:45 Reading Location: [facility] Radiology Reading RoomAddendum EndsFINAL REPORT Bilateral upper [...] described above. These findings were communicated to SLIAS Neff at 3:30 PM. Signed: Dangelo Proctoreport Verified Date/Time: 11/18/2017 15:36:41 Reading Location: [facility] Reading Room POCT-GLUCOSE [id number] 16:58:00 Test Item Value Reference Range Interpretation Comments POC-GLUCOSE METER 100 mg/dL 70-110 TESTED AT [facility] [address] (BANNER) (test code [facility] = 1538) [place] [address] POCT-GLUCOSE [id number] 11:30:00 Test Item Value Reference Range Interpretation Comments POC-GLUCOSE METER 119 mg/dL 70-110 H TESTED AT [facility] [address] (BANNER) (test code [facility] = 1538) [place] [address] HEPATITIS B SURFACE [id number] 11:18:00 Test Item Value Reference Range Interpretation Comments HEPATITIS B SURFACE ANTIBODY 436.5 mIU/mL <8.0 H (BANNER) (test code = 647) HEPATITIS C [id number] 11:18:00 Test Item Value Reference Range Interpretation Comments HEPATITIS C ANTIBODY (BANNER) Nonreactive Nonreactive (test code = 367) AMIKACIN LEVEL, [id number] 11:03:00 Test Item Value Reference Range Interpretation Comments AMIKACIN, PEAK (BANNER) (test code 26.0 ug/mL 25.0-35.0 = 1831) Therapeutic Range (ug/mL)Peak: 25.0-35.0Trough: 4.0-8.0 Toxic: >35.0 SURGICALLY OBTAINED CULTURE + GRAM [id number] 08:25:00 Test Item Value Reference Interpretation Comments Range CULTURE (BANNER) COAGULASE NEGATIVE A From Broth Only (test [...] No organisms seen (BEAKER) (test code = 948514) ANAEROBIC [id number] 07:53:00 Test Item Value Reference Range Interpretation Comments CULTURE (BEAKER) (test No anaerobes isolated code = 1095) GRAM STAIN RESULT 1+ WBCs (BEAKER) (test code = 1123) GRAM STAIN RESULT No organisms seen (BEAKER) (test code = 39634) POCT-GLUCOSE [id number] 06:37:00 Test Item Value Reference Range Interpretation Comments POC-GLUCOSE METER 135 mg/dL 70-110 H TESTED AT [facility] [address] (BANNER) (test code [facility] = 1538) [place] [address] HIV-1 ANTIGEN WITH HIV-1/2 [id number] 05:51:00 Test Item Value Reference Range Interpretation Comments HIV-1 ANTIGEN WITH HIV 1\\T\\2 Nonreactive Nonreactive ANTIBODY (2) (BEAKER) (test code = 2586) HEPATITIS B SURFACE [id number] 05:46:00 Test Item Value Reference Range Interpretation Comments HEPATITIS B SURFACE ANTIGEN (2) Nonreactive Nonreactive (BEAKER) (test code = 2585) CBC W/PLT COUNT & AUTO [id number] 05:11:00 Test Item Value Reference Range Interpretation [...] code = 2801) Smear reviewed. Results confirmed.POCT-GLUCOSE [id number] 23:01:00 Test Item Value Reference Range Interpretation Comments POC-GLUCOSE METER 111 mg/dL 70-110 H TESTED AT [facility] [address] (BEAKER) (test code [facility] = 1538) [place] [address] POCT-GLUCOSE [id number] 17:15:00 Test Item Value Reference Range Interpretation Comments POC-GLUCOSE METER 100 mg/dL 70-110 TESTED AT [facility] [address] (BEAKER) (test code [facility] = 1538) [place] [address] C-REACTIVE [id number] 14:34:00 Test Item Value Reference Range Interpretation Comments C-REACTIVE PROTEIN (BEAKER) (test 35.06 mg/dL 0.00-0.50 H code = 676) POCT-GLUCOSE [id number] 12:50:00 Test Item Value Reference Range Interpretation Comments POC-GLUCOSE METER 221 mg/dL 70-110 H TESTED AT [facility] [address] (BEAKER) (test code [facility] = 1538) [place] [address] CBC W/PLT COUNT & AUTO [id number] 10:56:00 Test Item Value Reference Range Interpretation [...] PERCENT (BEAKER) (test code = 2801) POCT-GLUCOSE [id number] 10:03:00 Test Item Value Reference Range Interpretation Comments POC-GLUCOSE METER 104 mg/dL 70-110 TESTED AT [facility] [address] (BEAKER) (test code [facility] = 1538) [place] [address] BASIC METABOLIC [id number] 04:51:00 Test Item Value Reference Range Interpretation [...] NOT APPLICABLE FOR DIALYSIS PATIEN TS. POCT-GLUCOSE [id number] 20:41:00 Test Item Value Reference Range Interpretation Comments POC-GLUCOSE METER 127 mg/dL 70-110 H TESTED AT [facility] [address] (BANNER) (test code [facility] = 1538) [place] [address] POCT-GLUCOSE [id number] 17:03:00 Test Item Value Reference Range Interpretation Comments POC-GLUCOSE METER 145 mg/dL 70-110 H TESTED AT [facility] [address] (BANNER) (test code [facility] = 1538) [place] [address] [id number] 12:39:00 Test Item Value Reference Range Interpretation Comments PROCALCITONIN (BANNER) (test code 1.27 ng/mL <0.05 H = 3036) SEPSIS RISK (ng/mL)Low: 0.05-0.50Intermediate: 0.51-2.00High: >=2.01POCT-GLUCOSE [id number] 11:58:00 Test Item Value Reference Range Interpretation Comments POC-GLUCOSE METER 120 mg/dL 70-110 H TESTED AT [facility] [address] (BANNER) (test code [facility] = 1538) [place] [address] CBC W/PLT COUNT & AUTO [id number] 09:50:00 Test Item Value Reference Range Interpretation Comments WHITE BLOOD CELL COUNT 34.2 K/ L 4.0-10.0 H Smear reviewed. (BANNER) (test code = Result s confirmed. 775) [...] PERCENT (BEAKER) (test code = 2801) POCT-GLUCOSE [id number] 06:32:00 Test Item Value Reference Range Interpretation Comments POC-GLUCOSE METER 124 mg/dL 70-110 H TESTED AT [facility] [address] (BEAKER) (test code [facility] = 1538) [place] [address] BASIC METABOLIC [id number] 06:27:00 Test Item Value Reference Range Interpretation [...] APPLICABLE FOR DIALYSIS PATIEN TS. BUN AND [id number] 06:26:00 Test Item Value Reference Range Interpretation [...] APPLICABLE FOR DIALYSIS PATIEN TS. HEMOGLOBIN AND [id number] 06:03:00 Test Item Value Reference Range Interpretation Comments HEMOGLOBIN (BEAKER) (test code = 8.6 GM/DL 12.0-15.5 L 410) HEMATOCRIT (BEAKER) (test code = 25.9 % 36.0-46.0 L 411) CT, CHEST, WITHOUT [id number] 22:51:00FINAL REPORT CLINICAL HISTORY: Leukocytosis FINDINGS: Multiple [...] MDReport Verified Date/Time: 11/15/2017 22:51:35 Reading Location: [address] Reading Room [facility], [id number] 22:51:00FINAL REPORT CLINICAL HISTORY: Leukocytosis FINDINGS: Multiple [...] Postsurgical changes, as described. Signed: Fide Machuca Verified Date/Time: 11/15/2017 22:51:35 Reading Location: [address] Reading Room POCT-GLUCOSE [id number] 21:14:00 Test Item Value Reference Range Interpretation Comments POC-GLUCOSE METER 128 mg/dL 70-110 H TESTED AT [facility] [address] (BANNER) (test code [facility] = 1538) [place] [address] POCT-GLUCOSE [id number] 17:10:00 Test Item Value Reference Range Interpretation Comments POC-GLUCOSE METER 109 mg/dL 70-110 TESTED AT [facility] [address] (BANNER) (test code [facility] = 1538) [place] [address] POCT-GLUCOSE [id number] 12:15:00 Test Item Value Reference Range Interpretation Comments POC-GLUCOSE METER 116 mg/dL 70-110 H TESTED AT [facility] [address] (BANNER) (test code [facility] = 1538) [place] [address] SPIN/CONCENTRATION [id number] 10:39:00 Test Item Value Reference Range Interpretation Comments CONCENTRATION CHARGED (BANNER) (test Done code = 2657) CBC W/PLT COUNT & AUTO [id number] 09:22:00 Test Item Value Reference Range Interpretation [...] (test code = 2801) TYPE AND SCREEN, [id number] 08:18:00 Test Item Value Reference Range Interpretation Comments ABO/RH AUTOMATED (BEAKER) (test B POSITIVE code = 2260) AB SCREEN (BEAKER) (test code = NEGATIVE 923) ANAEROBIC [id number] 07:55:00 Test Item Value Reference Range Interpretation Comments CULTURE (BEAKER) (test No anaerobes isolated code = 1095) BASIC METABOLIC [id number] 05:40:00 Test Item Value Reference Range Interpretation [...] APPLICABLE FOR DIALYSIS PATIEN TS. BUN AND [id number] 05:37:00 Test Item Value Reference Range Interpretation [...] APPLICABLE FOR DIALYSIS PATIEN TS. VANCOMYCIN LEVEL, [id number] 05:36:00 Test Item Value Reference Range Interpretation Comments VANCOMYCIN TROUGH (BEAKER) (test 17.5 ug/mL 10.0-20.0 code = 522) HEMOGLOBIN AND [id number] 05:23:00 Test Item Value Reference Range Interpretation Comments HEMOGLOBIN (BEAKER) (test code = 6.4 GM/DL 12.0-15.5 L 410) HEMATOCRIT (BEAKER) (test code = 19.3 % 36.0-46.0 LL 411) POCT-GLUCOSE [id number] 16:12:00 Test Item Value Reference Range Interpretation Comments POC-GLUCOSE METER 129 mg/dL 70-[address] [place] [address] [address] (BEAKER) (test code [facility] = 1538) [place] [address] POCT-GLUCOSE [id number] 12:07:00 Test Item Value Reference Range Interpretation Comments POC-GLUCOSE METER 114 mg/dL 70-110 H TESTED AT [facility] [address] (BEAKER) (test code [facility] = 1538) [place] [address] POCT-GLUCOSE [id number] 10:00:00 Test Item Value Reference Range Interpretation Comments POC-GLUCOSE METER 97 mg/dL 70-110 TESTED AT [facility] [address] (BEAKER) (test code = [facility] 1538) [place] [address] SURGICALLY OBTAINED CULTURE + GRAM [id number] 09:36:00 Test Item Value Reference Range Interpretation Comments CULTURE (BEAKER) (test code No growth = 1095) GRAM STAIN RESULT (BEAKER) <1+ WBCs (test code = 1123) GRAM STAIN RESULT (BEAKER) No organisms seen (test code = 89008) POCT-GLUCOSE [id number] 06:06:00 Test Item Value Reference Range Interpretation Comments POC-GLUCOSE METER 105 mg/dL 70-110 TESTED AT [facility] [address] (BEAKER) (test code [facility] = 1538) [place] [address] BASIC METABOLIC [id number] 05:55:00 Test Item Value Reference Range Interpretation [...] PATIEN TS. CBC W/PLT COUNT & AUTO [id number] 05:35:00 Test Item Value Reference Range Interpretation [...] PERCENT (BEAKER) (test code = 2801) POCT-GLUCOSE [id number] 21:11:00 Test Item Value Reference Range Interpretation Comments POC-GLUCOSE METER 94 mg/dL 70-110 TESTED AT [facility] [address] (BANNER) (test code = [facility] 1538) [place] [address] POCT-GLUCOSE [id number] 16:51:00 Test Item Value Reference Range Interpretation Comments POC-GLUCOSE METER 121 mg/dL 70-110 H TESTED AT [facility] [address] [facility] (test code [facility] = 1538) [place] [address] POCT-GLUCOSE [id number] 15:10:00 Test Item Value Reference Range Interpretation Comments POC-GLUCOSE METER 97 mg/dL 70-110 TESTED AT [facility] [address] [facility] (test code = [facility] 1538) [place] [address] [id number] 10:17:00 Test Item Value Reference Range Interpretation Comments PROCALCITONIN (BEAKER) (test code 1.41 ng/mL <0.05 H = 3036) SEPSIS RISK (ng/mL)Low: 0.05-0.50Intermediate: 0.51-2.00High: >=2.01HEPATIC FUNCTION [id number] 09:52:00 Test Item Value Reference Range Interpretation [...] code = 12 U/L 6-50 347) POCT-GLUCOSE [id number] 05:57:00 Test Item Value Reference Range Interpretation Comments POC-GLUCOSE METER 87 mg/dL 70-110 TESTED AT [facility] [address] (BEAKER) (test code = [facility] 1538) [place] [address] BASIC METABOLIC [id number] 05:34:00 Test Item Value Reference Range Interpretation [...] PATIEN TS. CBC W/PLT COUNT & AUTO [id number] 05:33:00 Test Item Value Reference Range Interpretation [...] (BEAKER) (test code = 2801) BUN AND [id number] 05:32:00 Test Item Value Reference Range Interpretation Comments BLOOD UREA NITROGEN 21 mg/dL 10-26 (BEAKER) (test code = 354) CREATININE (BEAKER) 0.79 mg/dL 0.50-1.20 (test code = 358) EGFR (BEAKER) (test 91 mL/min/1.73 ESTIMA YUMIKO GFR IS code = 1092) sq m NOT ACCURATE CREATININE CLEARANCE IN PREDICTING GLOMERULAR FILTRATION RATE . ESTIMATED GFR I S NOT APPLICABLE FOR DIALYSIS PATIEN TS. BLOOD [id number] 04:00:00 Test Item Value Reference Range Interpretation Comments CULTURE (BEAKER) (test No growth in 5 days code = 1095) BLOOD [id number] 01:00:00 Test Item Value Reference Range Interpretation Comments CULTURE (BEAKER) (test No growth in 5 days code = 1095) POCT-GLUCOSE [id number] 21:25:00 Test Item Value Reference Range Interpretation Comments POC-GLUCOSE METER 135 mg/dL 70-110 H TESTED AT [facility] [address] (BANNER) (test code [facility] = 1538) [place] [address] ANG, NON-TUNNELED CATH/PICC >5 Y.O.2017-11-12 17:59:00Reason for [...] MDReport Verified Date/Time: 11/12/2017 17:59:19 Reading Location: [facility] Radiology Reading Room POCT-GLUCOSE [id number] 16:37:00 Test Item Value Reference Range Interpretation Comments POC-GLUCOSE METER 98 mg/dL 70-110 TESTED AT [facility] [address] ([facility]) (test code = [facility] 15[address]) [place] [address] PERIPHERAL BLOOD SMEAR - PATH REVIEW LAB [id number] 08:14:00 Test Item Value Reference Range Interpretation Comments PERIPHERAL SMR REVIEW Neutrophilic (BEAKER) (test code = leukocytosis and 2640) microcytic anemia. No blast forms seen. [id number] Nazario Becker M.D. ([facility]) (test code = (electronic signature) 2793) (MANUAL [...] few 963) BODY FLUID CULTURE + GRAM [id number] 08:10:00 Test Item Value Reference Range Interpretation Comments CULTURE (BEAKER) (test No growth code = 1095) GRAM STAIN RESULT 3+ White blood cells (BEAKER) (test code = seen 1123) GRAM STAIN RESULT No organisms seen (BEAKER) (test code = 77028) POCT-GLUCOSE [id number] 06:18:00 Test Item Value Reference Range Interpretation Comments POC-GLUCOSE METER 113 mg/dL 70-110 H TESTED AT [facility] [address] (BEAKER) (test code [facility] [facility] = 1538) [place] [address] CBC W/PLT COUNT & AUTO [id number] 04:40:00 Test Item Value Reference Range Interpretation [...] (BEAKER) (test code = 2801) BASIC METABOLIC [id number] 03:56:00 Test Item Value Reference Range Interpretation [...] APPLICABLE FOR DIALYSIS PATIEN TS. BUN AND [id number] 03:55:00 Test Item Value Reference Range Interpretation Comments BLOOD UREA NITROGEN 19 mg/dL 10- (BEAKER) (test code = 354) CREATININE (BEAKER) 0.81 mg/dL 0.50-1.20 (test code = 358) EGFR (BEAKER) (test 88 mL/min/1.73 ESTIMA YUMIKO GFR IS code = 1092) sq m NOT ACCURATE CREATININE CLEARANCE IN PREDICTING GLOMERULAR FILTRATION RATE . ESTIMATED GFR I S NOT APPLICABLE FOR DIALYSIS PATIEN TS. POCT-GLUCOSE [id number] 20:51:00 Test Item Value Reference Range Interpretation Comments POC-GLUCOSE METER 151 mg/dL 70-110 H TESTED AT [facility] [address] ([place]) (test code [facility] = 1538) [place] [address] POCT-GLUCOSE [id number] 17:20:00 Test Item Value Reference Range Interpretation Comments POC-GLUCOSE METER 101 mg/dL 70-110 TESTED AT [facility] [address] ([place]) (test code [facility] = 1538) [place] [address] SPIN/CONCENTRATION [id number] 15:42:00 Test Item Value Reference Range Interpretation Comments CONCENTRATION CHARGED (BANNER) (test Done code = 2657) POCT-GLUCOSE [id number] 11:34:00 Test Item Value Reference Range Interpretation Comments POC-GLUCOSE METER 109 mg/dL 70-110 TESTED AT [facility] [address] ([place]) (test code [facility] = 1538) [place] [address] VANCOMYCIN LEVEL, [id number] 09:14:00 Test Item Value Reference Range Interpretation Comments VANCOMYCIN TROUGH (BEAKER) (test 10.6 ug/mL 10.0-20.0 code = 522) BASIC METABOLIC [id number] 05:59:00 Test Item Value Reference Range Interpretation [...] APPLICABLE FOR DIALYSIS PATIEN TS. BUN AND [id number] 05:58:00 Test Item Value Reference Range Interpretation Comments BLOOD UREA NITROGEN 17 mg/dL 10-26 (BEAKER) (test code = 354) CREATININE (BEAKER) 0.80 mg/dL 0.50-1.20 (test code = 358) EGFR (BEAKER) (test 90 mL/min/1.73 ESTIMA YUMIKO GFR IS code = 1092) sq m NOT ACCURATE CREATININE CLEARANCE IN PREDICTING GLOMERULAR FILTRATION RATE . ESTIMATED GFR I S NOT APPLICABLE FOR DIALYSIS PATIEN TS. POCT-GLUCOSE [id number] 05:49:00 Test Item Value Reference Range Interpretation Comments POC-GLUCOSE METER 121 mg/dL 70-110 H TESTED AT [facility] [address] (BEAKER) (test code [facility] = 1538) [place] [address] CBC W/PLT COUNT & AUTO [id number] 05:43:00 Test Item Value Reference Range Interpretation [...] PERCENT (BEAKER) (test code = 2801) POCT-GLUCOSE [id number] 00:07:00 Test Item Value Reference Range Interpretation Comments POC-GLUCOSE METER 150 mg/dL 70-110 H TESTED AT [facility] [address] ([place]) (test code [facility] = 1538) [place] [address] RAD, HIP, 1 VIEW, [id number] 23:51:00Reason for exam:->postopFINAL REPORT Right hip. HISTORY: Postoperative. COMPARISON STUDY: October 29, 2017. FINDINGS: A single frontal view of the right hip demonstrates a hemiarthroplasty in place. No cement is identified. There is no evidence of fracture or malalignment on this single projection. Signed: Alexandrea Martines Verified Date/Time: 11/10/2017 23:51:24 Reading Location: [address] Ortho Consult Reading Room RAD, PELVIS, 1 OR 2 [id number] 23:22:00Reason for exam:->Hip ArthroplastyReason for exam:->X-Table Lateral during OR. Sterile FieldFINAL REPORT Pelvis. HISTORY: Hip arthroplasty. COMPARISON STUDY: CT scan dated November 07, 2017. FINDINGS: Two views of the pelvis are suboptimal in appearance. A right hemiarthroplasty seen in place with no obvious fracture or malalignment on the provided views. Assessment for fractures is limited. Signed: Alexandrea Martines Verified Date/Time: 11/10/2017 23:22:52 Reading Location: [address] Ortho Consult Reading Room POCT-GLUCOSE [id number] 22:54:00 Test Item Value Reference Range Interpretation Comments POC-GLUCOSE METER 140 mg/dL 70-110 H TESTED AT [facility] [address] ([place]) (test code [facility] = 1538) [place] [address] POCT-GLUCOSE [id number] 16:57:00 Test Item Value Reference Range Interpretation Comments POC-GLUCOSE METER 98 mg/dL 70-110 TESTED AT [facility] [address] (BEAKER) (test code = [facility] 1538) [place] [address] POCT-GLUCOSE [id number] 12:41:00 Test Item Value Reference Range Interpretation Comments POC-GLUCOSE METER 111 mg/dL 70-110 H TESTED AT [facility] [address] (BEAKER) (test code [facility] = 1538) [place] [address] (MANUAL DIFFERENTIAL)2017-11-10 07:35:00 Test Item Value Reference [...] = 762) CBC W/PLT COUNT & AUTO [id number] 07:32:00 Test Item Value Reference Range Interpretation [...] 0-0 CELLS (BEAKER) (test code = 413) [id number] 07:25:00 Test Item Value Reference Range Interpretation Comments PHOSPHORUS (BEAKER) (test code = 3.5 mg/dL 2.5-4.5 604) [id number] 07:25:00 Test Item Value Reference Range Interpretation Comments MAGNESIUM (BEAKER) (test code = 1.7 mg/dL 1.5-3.0 627) BASIC METABOLIC [id number] 07:25:00 Test Item Value Reference Range Interpretation [...] 70-110 (BEAKER) (test code = 652) CALCIUM ([place]NER) 8.3 mg/dL 8.5-10.5 L (test code = 697) EGFR ([place]) (test 77 mL/min/1.73 ESTIMA YUMIKO GFR IS code = 1092) sq m NOT ACCURATE CREATININE CLEARANCE IN PREDICTING GLOMERULAR FILTRATION RATE . ESTIMATED GFR I S NOT APPLICABLE FOR DIALYSIS PATIEN TS. POCT-GLUCOSE [id number] 06:45:00 Test Item Value Reference Range Interpretation Comments POC-GLUCOSE METER 121 mg/dL 70-110 H TESTED AT [facility] [address] ([place]) (test code [facility] = 1538) [place] [address] POCT-GLUCOSE [id number] 22:14:00 Test Item Value Reference Range Interpretation Comments POC-GLUCOSE METER 124 mg/dL 70-110 H TESTED AT [facility] [address] ([place]) (test code [facility] = 1538) [place] [address] VANCOMYCIN LEVEL, [id number] 21:02:00 Test Item Value Reference Range Interpretation Comments VANCOMYCIN TROUGH ([place]) (test 9.6 ug/mL 10.0-20.0 L code = 522) POCT-GLUCOSE [id number] 17:22:00 Test Item Value Reference Range Interpretation Comments POC-GLUCOSE METER 98 mg/dL 70-110 TESTED AT [facility] [address] ([place]) (test code = [facility] 1534) [place] [address] POCT-GLUCOSE [id number] 11:36:00 Test Item Value Reference Range Interpretation Comments POC-GLUCOSE METER 127 mg/dL 70-110 H TESTED AT [facility] [address] ([place]) (test code [facility] = 1538) [place] [address] WOUND CULTURE + GRAM [id number] 11:05:00 Test Item Value Reference Interpretation Comments Range CULTURE ([place]) (test ENTEROBACTER A <1+ E nterobacter code [...] No organisms seen (BEAKER) (test code = 499101) POCT-GLUCOSE [id number] 05:54:00 Test Item Value Reference Range Interpretation Comments POC-GLUCOSE METER 116 mg/dL 70-110 H TESTED AT [facility] [address] (BEAKER) (test code [facility] = 1538) [place] [address] [id number] 03:42:00 Test Item Value Reference Range Interpretation Comments PHOSPHORUS (BEAKER) (test code = 3.8 mg/dL 2.5-4.5 604) [id number] 03:42:00 Test Item Value Reference Range Interpretation Comments MAGNESIUM (BEAKER) (test code = 1.9 mg/dL 1.5-3.0 627) BASIC METABOLIC [id number] 03:42:00 Test Item Value Reference Range Interpretation [...] PATIEN TS. CBC W/PLT COUNT & AUTO [id number] 03:21:00 Test Item Value Reference Range Interpretation [...] 756) MEAN PLATELET VOLUME 9.0 fL 6.0-11.5 MPV-Chrsitina roximately (BEAKER) (test code = 20% po [...] PERCENT (BEAKER) (test code = 2801) POCT-GLUCOSE [id number] 20:55:00 Test Item Value Reference Range Interpretation Comments POC-GLUCOSE METER 122 mg/dL 70-110 H TESTED AT [facility] [address] (BEAKER) (test code [facility] = 1538) [place] [address] POCT-GLUCOSE [id number] 16:19:00 Test Item Value Reference Range Interpretation Comments POC-GLUCOSE METER 136 mg/dL 70-110 H TESTED AT [facility] [address] (BEAKER) (test code [facility] = 1538) [place] [address] HEMOGLOBIN AND [id number] 14:19:00 Test Item Value Reference Range Interpretation Comments HEMOGLOBIN (BEAKER) (test code = 8.1 GM/DL 12.0-15.5 L 410) HEMATOCRIT (BEAKER) (test code = 24.9 % 36.0-46.0 L 411) POCT-GLUCOSE [id number] 12:13:00 Test Item Value Reference Range Interpretation Comments POC-GLUCOSE METER 142 mg/dL 70-110 H TESTED AT [facility] [address] (BEAKER) (test code [facility] = 1538) [place] [address] POCT-GLUCOSE [id number] 06:02:00 Test Item Value Reference Range Interpretation Comments POC-GLUCOSE METER 109 mg/dL 70-110 TESTED AT [facility] [address] (BEAKER) (test code [facility] = 1538) [place] [address] POCT-GLUCOSE [id number] 05:38:00 Test Item Value Reference Range Interpretation Comments POC-GLUCOSE METER 150 mg/dL 70-110 H TESTED AT [facility] [address] (BEAKER) (test code [facility] = 1538) [place] [address] TYPE AND SCREEN, [id number] 03:11:00 Test Item Value Reference Range Interpretation Comments ABO/RH AUTOMATED (BEAKER) (test B Positive code = 2260) AB SCREEN (BEAKER) (test code = Negative 923) HEMOGLOBIN AND [id number] 02:41:00 Test Item Value Reference Range Interpretation Comments HEMOGLOBIN (BEAKER) (test code = 5.9 GM/DL 12.0-15.5 LL 410) HEMATOCRIT (BEAKER) (test code = 18.2 % 36.0-46.0 LL 411) COMPREHENSIVE METABOLIC [id number] 01:43:00 Test Item Value Reference Range Interpretation [...] S NOT APPLICABLE FOR DIALYSIS PATIEN TS. [id number] 01:36:00 Test Item Value Reference Range Interpretation Comments PHOSPHORUS (BEAKER) (test code = 3.3 mg/dL 2.5-4.5 604) [id number] 01:36:00 Test Item Value Reference Range Interpretation Comments MAGNESIUM (BEAKER) (test code = 1.9 mg/dL 1.5-3.0 627) LACTIC ACID, VENOUS, WHOLE [id number] 01:29:00 Test Item Value Reference Range Interpretation Comments LACTATE BLOOD VENOUS (2) (BEAKER) 0.8 mmol/L 0.5-2.2 (test code = 2872) Effective 07/19/2015: Units/Reference Range ChangeNew: 0.5-2.2 mmol/L Previous: 5-20 mg/dLCBC W/PLT COUNT & AUTO [id number] 01:25:00 Test Item Value Reference Range Interpretation [...] PERCENT (BEAKER) (test code = 2801) POCT-GLUCOSE [id number] 21:52:00 Test Item Value Reference Range Interpretation Comments POC-GLUCOSE METER 113 mg/dL 70-110 H TESTED AT [facility] [address] (BEAKER) (test code [facility] = 1538) [place] [address] CT, EXTREMITY, LOWER WITHOUT CONTRAST, [id number] 19:15:00FINAL REPORT CT scan of the right [...] is seen within this abscess. Signed: Alexandrea Martinesort Verified Date/Time: 11/07/2017 19:15:59 Reading Location: [facility] C013W Consult Reading Room RAD, HIP, 2 VIEWS, [id number] 16:19:00Reason for exam:->HIP PAIN FINAL REPORT INDICATION:Right [...] Singletary Verified Date/Time: 11/07/2017 16:19:47 Reading Location: [facility] Women CBC W/PLT COUNT & AUTO [id number] 16:00:00 Test Item Value Reference Range Interpretation [...] (BEAKER) (test code Normal = 762) C-REACTIVE [id number] 15:30:00 Test Item Value Reference Range Interpretation Comments C-REACTIVE PROTEIN (BEAKER) (test 47.39 mg/dL 0.00-0.50 H code = 676) COMPREHENSIVE METABOLIC [id number] 15:30:00 Test Item Value Reference Range Interpretation [...] APPLICABLE FOR DIALYSIS PATIEN TS. BASIC METABOLIC [id number] 06:26:00 Test Item Value Reference Range Interpretation [...] PATIEN TS. CBC W/PLT COUNT & AUTO [id number] 06:12:00 Test Item Value Reference Range Interpretation [...] L 0.00-0.20 (test code = 417) POCT-GLUCOSE [id number] 05:55:00 Test Item Value Reference Range Interpretation Comments POC-GLUCOSE METER 120 mg/dL 70-110 H TESTED AT [facility] [address] (BEAKER) (test code [facility] = 1538) [place] [address] POCT-GLUCOSE [id number] 21:07:00 Test Item Value Reference Range Interpretation Comments POC-GLUCOSE METER 121 mg/dL 70-110 H TESTED AT [facility] [address] (BEAKER) (test code [facility] = 1538) [place] [address] POCT-GLUCOSE [id number] 17:45:00 Test Item Value Reference Range Interpretation Comments POC-GLUCOSE METER 131 mg/dL 70-110 H TESTED AT [facility] [address] (BEAKER) (test code [facility] = 1538) [place] [address] HEMOGLOBIN AND [id number] 14:26:00 Test Item Value Reference Range Interpretation Comments HEMOGLOBIN (BEAKER) (test code = 7.9 GM/DL 12.0-15.0 L 410) HEMATOCRIT (BEAKER) (test code = 24.6 % 36.0-45.0 L 411) POCT-GLUCOSE [id number] 11:22:00 Test Item Value Reference Range Interpretation Comments POC-GLUCOSE METER 134 mg/dL 70-110 H TESTED AT [facility] [address] (BEAKER) (test code [facility] = 1538) [place] [address] BASIC METABOLIC [id number] 05:16:00 Test Item Value Reference Range Interpretation [...] APPLICABLE FOR DIALYSIS PATIEN TS. Specimen recollected. [id number] 04:56:00 Test Item Value Reference Range Interpretation Comments POC-GLUCOSE METER 141 mg/dL 70-110 H TESTED AT [facility] [address] (BEAKER) (test code [facility] = 1538) [place] [address] HEMOGLOBIN AND [id number] 04:10:00 Test Item Value Reference Range Interpretation [...] few 965) CBC W/PLT COUNT & AUTO [id number] 21:34:00 Test Item Value Reference Range Interpretation [...] 6.5-10.5 (BEAKER) (test code = 754) POCT-GLUCOSE [id number] 21:17:00 Test Item Value Reference Range Interpretation Comments POC-GLUCOSE METER 126 mg/dL 70-110 H TESTED AT [facility] [address] (BEAKER) (test code [facility] = 1538) [place] [address] POCT-GLUCOSE [id number] 18:04:00 Test Item Value Reference Range Interpretation Comments POC-GLUCOSE METER 117 mg/dL 70-110 H TESTED AT [facility] [address] [address] (BEAKER) (test code [facility] = 1538) [place] [address] POCT-GLUCOSE [id number] 11:38:00 Test Item Value Reference Range Interpretation Comments POC-GLUCOSE METER 133 mg/dL 70-110 H TESTED AT [facility] [address] (BEAKER) (test code [facility] = 1538) [place] [address] BASIC METABOLIC [id number] 04:20:00 Test Item Value Reference Range Interpretation [...] APPLICABLE FOR DIALYSIS PATIEN TS. HEMOGLOBIN AND [id number] 04:11:00 Test Item Value Reference Range Interpretation Comments HEMOGLOBIN (BEAKER) (test code = 8.1 GM/DL 12.0-15.0 L 410) HEMATOCRIT (BEAKER) (test code = 25.6 % 36.0-45.0 L 411) POCT-GLUCOSE [id number] 04:03:00 Test Item Value Reference Range Interpretation Comments POC-GLUCOSE METER 151 mg/dL 70-110 H TESTED AT [facility] [address] [facility] (test code [employer] [facility] = 1538) [place] [address] RAD, HIP, 1 VIEW, [id number] 21:16:00Reason for exam:->postopShould this be performed at the bedside?->YesFINAL REPORT Exam: AP hip CLINICAL INDICATION: Right hip arthroplasty IMPRESSION: Compared with intraoperative image performed earlier today at 1400 hours. The patient is status post a right hip arthroplasty. The alignment is near anatomic. No definite evidence of a periprosthetic fracture. As before, postoperative changes are noted in the adjacent soft tissues. Signed: Jarad Lau Verified Date/Time: 10/29/2017 21:16:21 Reading Location: [address] Transitional Re ading Room POCT-GLUCOSE [id number] 20:20:00 Test Item Value Reference Range Interpretation Comments POC-GLUCOSE METER 76 mg/dL 70-110 TESTED AT [facility] [address] ([place]) (test code = [employer] [facility] 1538) [place] [address] POCT-GLUCOSE [id number] 15:13:00 Test Item Value Reference Range Interpretation Comments POC-GLUCOSE METER 150 mg/dL 70-110 H TESTED AT [facility] [address] ([place]) (test code [employer] [facility] = 1538) [place] [address] RAD, HIP, OPERATIVE, [id number] 14:41:00Reason for exam:->RequiredFINAL REPORT RIGHT HIP ONE VIEW HISTORY: Right hip pain, right hip arthroplasty COMPARISON: None FINDINGS: Single intraoperative image of the right hip/low pelvis shows in progress changes of right hip total arthroplasty. A reamer is present in the proximal right femur. The acetabular region is obscured by overlying hardware. Signed: Ceci Aldrich Verified Date/Time: 10/29/2017 14:41:51 Reading Location: [facility] Radiology Reading Room POCT- GLUCOSE [id number] 09:53:00 Test Item Value Reference Range Interpretation Comments POC-GLUCOSE METER 104 mg/dL 70-110 TESTED AT [facility] [address] (BEAKER) (test code [facility] = 1538) [place] [address] BASIC METABOLIC [id number] 12:23:00 Test Item Value Reference Range Interpretation [...] APPLICABLE FOR DIALYSIS PATIEN TS. URINALYSIS W/ [id number] 12:21:00 Test Item Value Reference Range Interpretation [...] = 2795) CBC W/PLT COUNT & AUTO [id number] 12:18:00 Test Item Value Reference Range Interpretation [...] L 0.00-0.20 (test code = 417) MRSA [id number] 08:33:00 Test Item Value Reference Range Interpretation Comments CULTURE (BEAKER) (test code No MRSA isolated = 1095)
--- NOTE | 2021-03-25 21:01 | RAD REPORT ---
EXAM DESCRIPTION: Claudia Single View03/25/2021 8:49 pm CLINICAL HISTORY: Chest pain COMPARISON: February 2021 FINDINGS: The lungs appear clear of acute infiltrate. The heart is mildly to moderately enlarged. PICC line with its tip at the caval atrial junction IMPRESSION: No acute abnormalities displayed
[2021-03-25] MEDS ORDERED: HYDROMORPHONE HCL 2 MG/ML inj ONE (21:37)
[2021-03-25] MEDS ORDERED: ONDANSETRON 4 MG/2 ML VIAL ONE (21:37)
[2021-03-25 21:49] LABS: Absolute Lymphocytes (CBC) 0.5 K/uL (0.7-4.9); Hematocrit 21.5 % (36.0-45.0); Lymphocytes % 10.9 % (15.3-44.8); MPV 8.5 fL (7.6-11.3); RBC Red Blood Cell Count 2.68 M/uL (3.86-4.86)
[2021-03-25 21:57] LABS: Protime INR 1.33
[2021-03-25 22:06] LABS: Albumin 2.1 g/dL (3.4-5.0); Bilirubin Direct 0.6 mg/dL (0-0.2); Bilirubin Total 1.1 mg/dL (0.2-1.0); Magnesium 1.8 mg/dL (1.8-2.4); Potassium 3.9 mmol/L (3.5-5.1); Protein, Total 7.5 g/dL (6.4-8.2); Troponin (Emerg Dept Use Only) 0.03 ng/mL (0.0-0.045)
[2021-03-25 22:39] LABS: Anisocytosis 2+; Blood Morphology Comment NOTED (NOT SEEN); Platelet Estimate DECR; White Blood Cell Scan OK (OK)
[2021-03-26] MEDS ORDERED: HYDROMORPHONE HCL 1 MG/ML INJ ONE ×2 (00:17→01:27)
--- NOTE | 2021-03-26 01:21 | EDPHYS ---
Physician Documentation [facility] Name: Sade Galdamez Age: 60 yrs Sex: Female : 1960 Arrival Date: 03/25/2021 Time: 20:17 Bed 13 Private MD: ED Physician Jean Carlos Pinzon HPI: 03/25 20:28 This 60 yrs old Black Female presents to ER via EMS with complaints of Chest Pain. pm1 20:28 The patient or guardian reports chest pain that is located primarily in the anterior pm1 aspect of right upper chest, anterior aspect of left upper chest and mid-sternal area. 20:28 Onset: today. The pain radiates to back. Associated signs and symptoms: Pertinent pm1 negatives: abdominal pain, cough, dizziness, headache, nausea, shortness of breath, vomiting. The chest pain is described as sharp. Duration: The patient or guardian reports a single episode. Modifying factors: The symptoms are alleviated by nothing. the symptoms are aggravated by nothing. Severity of pain: in the emergency department the pain is unchanged. The patient has experienced similar episodes in the past, multiple times, chronically. The patient has not recently seen a physician. 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 - Social history:: Smoking status: unknown. ROS: 20:28 Constitutional: Negative for fever, chills, and weight loss. pm1 20:28 Respiratory: Negative for shortness of breath, cough, wheezing, and pleuritic chest pain, Abdomen/GI: Negative for abdominal pain, nausea, vomiting, diarrhea, and constipation, MS/Extremity: Negative for injury and deformity. 20:28 Skin: Negative for injury, rash, and discoloration, Neuro: Negative for headache, weakness, numbness, tingling, and seizure. 20:28 Cardiovascular: Positive for chest pain, edema to bilateral lower extremities , Negative for palpitations. 20:28 All other systems are negative. Exam: 20:28 Constitutional: This is a well developed, well nourished patient who is awake, alert, pm1 and in no acute distress. Head/Face: Normocephalic, atraumatic. 20:28 Skin: Warm, dry with normal turgor. Normal color with no rashes, no lesions, and no evidence of cellulitis. MS/ Extremity: Pulses equal, no cyanosis. Neurovascular intact. Full, normal range of motion. 20:28 Eyes: Exam is negative for acute changes, Extraocular movements: intact throughout, Conjunctiva: no acute changes, no injection, Sclera: no acute changes, icterus, is not appreciated. 20:28 Chest/axilla: Inspection: normal, Palpation: crepitus, is not appreciated, tenderness, of the anterior aspect of right upper chest, anterior aspect of left upper chest and mid-sternal area, that totally reproduces the patient's complaints. 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 20:28 Respiratory: Exam negative for acute changes, the patient does not display signs of respiratory distress, Respirations: normal, Breath sounds: are clear throughout. 20:28 Abdomen/GI: Inspection: abdomen appears normal, Palpation: abdomen is soft and non-tender, in all quadrants. 20:28 Neuro: Exam negative for acute changes, Orientation: is normal, Mentation: is normal, Motor: is normal, moves all fours. Vital Signs: 22:35 BP 111 / 68; Pulse 89; Resp 11; Temp 97.9; Pulse Ox 100% ; sv1 22:40 BP 111 / 68; Pulse 89; Resp 11; Temp 97.9; Pulse Ox 100% ; Pain 0/10; sv1 03/26 01:17 BP 118 / 73; Pulse 88; Resp 14; Pulse Ox 98% 0 lpm ; Pain 7/10; sv1 MDM: 03/25 20:22 Patient medically screened. pm1 03/26 00:59 Data reviewed: vital signs. Data interpreted: Pulse oximetry: on room air is 100 %. pm1 Interpretation: normal. 00:59 Counseling: I had a detailed discussion with the patient and/or guardian regarding: the pm1 historical points, exam findings, and any diagnostic results supporting the discharge/admit diagnosis, lab results, radiology results, the need for outpatient follow up, to return to the emergency department if symptoms worsen or persist or if there are any questions or concerns that arise at home. 03/25 20:28 Order name: Basic Metabolic Panel; Complete Time: 22:11 pm1 03/25 20:28 Order name: CBC with Diff; Complete Time: 22:41 pm1 03/25 20:28 Order name: LFT's; Complete Time: 22:11 pm1 03/25 20:28 Order name: Magnesium; Complete Time: 22:11 pm1 03/25 20:28 Order name: NT PRO-BNP; Complete Time: 22:11 pm1 03/25 20:28 Order name: PT-INR; Complete Time: 21:57 pm1 03/25 20:28 Order name: Troponin (emerg Dept Use Only); Complete Time: 22:11 pm1 03/25 20:28 Order name: XRAY Chest (1 view); Complete Time: 21:04 pm1 03/25 21:58 Order name: CBC Smear Scan; Complete Time: 22:41 EDMS 03/25 23:59 Order name: Troponin (emerg Dept Use Only); Complete Time: 00:53 pm1 03/25 20:28 Order name: EKG; Complete Time: 20:29 pm1 03/25 20:28 Order name: Cardiac monitoring; Complete Time: 21:17 pm1 03/25 20:28 Order name: EKG - Nurse/Tech; Complete Time: 21:14 pm1 03/25 20:28 Order name: IV Saline Lock; Complete Time: 21:31 pm1 03/25 20:28 Order name: Labs collected and sent; Complete Time: 21:31 pm1 03/25 20:28 Order name: O2 Per Protocol; Complete Time: 21:31 pm1 03/25 20:28 Order name: O2 Sat Monitoring; Complete Time: 21:31 pm1 Administered Medications: 03/25 21:28 CANCELLED (Physician Discretion): morphine 4 mg IVP once; RASS on ADMIN: Combtv4, Very pm1 Agttd3, Agttd2, Rstlss1, AlertClm0, Drwsy-1, Lt Sdtn-2, Mod Sdtn-3, Dp Sdtn-4, UnArsble-5 21:50 Drug: Zofran (Ondansetron) 4 mg Route: IVP; Site: left antecubital; sv1 23:29 Follow up: Response: No adverse reaction; Nausea is decreased sv1 21:50 Drug: Dilaudid (HYDROmorphone) 2 mg Route: IVP; Site: left antecubital; sv1 23:29 Follow up: Response: No adverse reaction; Pain is decreased sv1 03/26 00:22 Drug: Dilaudid (HYDROmorphone) 1 mg Route: IVP; Site: right antecubital; sv1 01:12 Follow up: Response: No adverse reaction; Pain is decreased sv1 01:39 Drug: Dilaudid (HYDROmorphone) 1 mg Route: IVP; Site: left antecubital; sv1 02:00 Follow up: Response: No adverse reaction; Pain is decreased; Medication administered at tw5 discharge.; RASS: Alert and Calm (0) 01:39 Drug: Lasix (furosemide) 40 mg Route: IVP; Site: left antecubital; sv1 02:00 Follow up: Response: No adverse reaction; Medication administered at discharge. tw5 01:39 Drug: Potassium Chloride 20 mEq Route: PO; sv1 01:59 Follow up: Response: No adverse reaction tw5 Disposition: 06:39 Co-signature as Attending Physician, Jean Carlos Pinzon MD I agree with the assessment and ruddy plan of care. Disposition Summary: 03/26/21 01:19 Discharge Ordered Location: Home pm1 Problem: new pm1 Symptoms: have improved pm1 Condition: Stable pm1 Diagnosis - Other chronic pain pm1 - Congestive heart failure pm1 - Anemia, unspecified pm1 Followup: pm1 - With: Emergency Department - When: As needed - Reason: Worsening of condition Followup: pm1 - With: Private Physician - When: 2 - 3 days - Reason: Recheck today's complaints, Continuance of care, Re-evaluation by your physician Discharge Instructions: - Discharge Summary Sheet pm1 - Anemia pm1 - Chronic Pain, Adult pm1 - Nonspecific Chest Pain, Adult pm1 Forms: - Medication Reconciliation Form pm1 - Thank You Letter pm1 - Antibiotic Education pm1 - Prescription Opioid Use pm1 Signatures: Dispatcher [employer] Jean Carlos Cummings MD MD cha Marinas, Patrick, FIBERGLASSER FIBERGLASSER pm1 Aydin Friedman, RN RN sv1 Lakeisha Chatman tw5 Corrections: (The following items were deleted from the chart) 03/25 21:28 21:15 morphine 4 mg IVP once; RASS on ADMIN: Combtv4, Very Agttd3, Agttd2, Rstlss1, pm1 AlertClm0, Drwsy-1, Lt Sdtn-2, Mod Sdtn-3, Dp Sdtn-4, UnArsble-5 ordered. pm1
--- NOTE | 2021-03-26 01:21 | ER ---
Nurse's Notes [facility] Name: Sade Galdamez Age: 60 yrs Sex: Female : 1960 Arrival Date: 03/25/2021 Time: 20:17 Bed 13 Private MD: Diagnosis: Other chronic pain;Congestive heart failure;Anemia, unspecified Presentation: 03/25 22:35 Chief complaint: Patient states: generalized abd pain. Coronavirus screen: Client sv1 denies travel out of the [place] in the last 14 days. Ebola Screen: No symptoms or risks identified at this time. Initial Sepsis Screen: Does the patient meet any 2 criteria? No. Patient's initial sepsis screen is negative. Does the patient have a suspected source of infection? No. Patient's initial sepsis screen is negative. Risk Assessment: Do you want to hurt yourself or someone else? Patient reports no desire to harm self or others. Onset of symptoms was March 17, 2021. 22:35 Method Of Arrival: EMS: [facility] sv1 22:35 Acuity: ABDIRIZAK 3 sv1 Triage Assessment: 22:38 General: Appears distressed, ill, well groomed. General: Behavior is cooperative, sv1 agitated. Pain: Complains of pain in abdomen. Cardiovascular: No deficits noted. 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 - Social history:: Smoking status: unknown. Screenin:40 Abuse screen: Denies threats or abuse. Nutritional screening: No deficits noted. sv1 Tuberculosis screening: No symptoms or risk factors identified. Fall Risk None identified. Assessment: 03/26 01:13 Pain: Complains of pain in abdomen Pain does not radiate. Pain began suddenly. sv1 01:46 General: Appears uncomfortable, Behavior is calm, cooperative, appropriate for age. tw5 Vital Signs: 03/25 22:35 BP 111 / 68; Pulse 89; Resp 11; Temp 97.9; Pulse Ox 100% ; sv1 22:40 BP 111 / 68; Pulse 89; Resp 11; Temp 97.9; Pulse Ox 100% ; Pain 0/10; sv1 03/26 01:17 BP 118 / 73; Pulse 88; Resp 14; Pulse Ox 98% 0 lpm ; Pain 7/10; sv1 ED Course: 03/25 20:17 Patient arrived in ED. cg 20:21 Sandro Golden NP is PHCP. pm1 20:21 Jean Carlos Pinzon MD is Attending Physician. pm1 20:48 XRAY Chest (1 view) In Process Unspecified. EDMS 20:58 Aydin Friedman, SILAS is Primary Nurse. sv1 21:31 Basic Metabolic Panel Sent. sv1 21:31 CBC with Diff Sent. sv1 21:31 LFT's Sent. sv1 21:31 Magnesium Sent. sv1 21:31 NT PRO-BNP Sent. sv1 21:31 PT-INR Sent. sv1 21:31 Troponin (emerg Dept Use Only) Sent. sv1 22:38 Triage completed. sv1 22:38 Arm band placed on right wrist. sv1 22:40 No provider procedures requiring assistance completed. IV is intact. Patient maintains sv1 SpO2 saturation greater than 95% on room air. 22:40 Patient has correct armband on for positive identification. Bed in low position. Call sv1 light in reach. Side rails up X2. media monitor on. 03/26 01:46 Changed dressing on PICC line. tw5 01:54 [address]ICC line remained in place. tw5 Administered Medications: 03/25 21:28 CANCELLED (Physician Discretion): morphine 4 mg IVP once; RASS on ADMIN: Combtv4, Very pm1 Agttd3, Agttd2, Rstlss1, AlertClm0, Drwsy-1, Lt Sdtn-2, Mod Sdtn-3, Dp Sdtn-4, UnArsble-5 21:50 Drug: Zofran (Ondansetron) 4 mg Route: IVP; Site: left antecubital; sv1 23:29 Follow up: Response: No adverse reaction; Nausea is decreased sv1 21:50 Drug: Dilaudid (HYDROmorphone) 2 mg Route: IVP; Site: left antecubital; sv1 23:29 Follow up: Response: No adverse reaction; Pain is decreased sv1 03/26 00:22 Drug: Dilaudid (HYDROmorphone) 1 mg Route: IVP; Site: right antecubital; sv1 01:12 Follow up: Response: No adverse reaction; Pain is decreased sv1 01:39 Drug: Dilaudid (HYDROmorphone) 1 mg Route: IVP; Site: left antecubital; sv1 02:00 Follow up: Response: No adverse reaction; Pain is decreased; Medication administered at tw5 discharge.; RASS: Alert and Calm (0) 01:39 Drug: Lasix (furosemide) 40 mg Route: IVP; Site: left antecubital; sv1 02:00 Follow up: Response: No adverse reaction; Medication administered at discharge. tw5 01:39 Drug: Potassium Chloride 20 mEq Route: PO; sv1 01:59 Follow up: Response: No adverse reaction tw Outcome: 01:19 Discharge ordered by . pm1 01:54 Discharged to home with family. tw5 01:54 Condition: improved 01:54 Discharge instructions given to patient, Instructed on discharge instructions, follow up and referral plans. Demonstrated understanding of instructions, follow-up care. 01:57 Patient left the ED. Signatures: Dispatcher [employer] Shahnaz Martines RN RN Sandro Golden NP API PRODUCT MANAGER pm1 Lakeisha Chatman tw5 Aydin Friedman RN RN sv1
[2021-03-26] MEDS ORDERED: POTASSIUM CL SA 10 MEQ TAB PO ONE (01:28)
[2021-03-26] MEDS ORDERED: FUROSEMIDE 40 MG/4 ML VIAL ONE (01:28)
[2021-03-26 02:22] VITALS: TEMP 97.9
[2021-03-26 02:25] VITALS: BP 118/73; O2SAT 98
== END 2021-03-26 01:57 | disposition home or self-care (01) ==
LOC: ER 20:10
DX: G89.29 Other chronic pain (principal); I11.0 Hypertensive heart disease with heart failure; I50.9 Heart failure, unspecified; D64.9 Anemia, unspecified; Z85.3 Personal history of malignant neoplasm of breast
CPT/HCPCS: 93005; 85025; 80048; 36415; 83735; 85610; 80076; 84484 ×2; 83880; 71045; 99285; J1940; J1170 ×3; J2405

== ENCOUNTER 2021-05-04 14:53 | Emergency (ER) | payer OTHER ==
--- OUTSIDE RECORDS SUMMARY | 2021-05-04 15:06 | XMS REPORT | Continuity of Care Document ---
:1960 Author Organization [facility] t Address [address] [place] [address] Care Team Providers Name Role Phone LAWSON KALINA Primary Care Physician Unavailable Nile TEJADA Attending Clinician Unavailable SYSTEM, NOT IN Attending Clinician Unavailable Jasmina MUNIZ Attending Clinician Unavailable BARBRA Attending Clinician Unavailable Dominick MELISSA Attending Clinician Unavailable MAYE Attending Clinician Unavailable DIONTE Attending Clinician Unavailable JENNIFER Attending Clinician Unavailable SCOTT Attending Clinician Unavailable Juju ROMERO Attending Clinician Unavailable Tez RON Attending Clinician Unavailable STEFANO Attending Clinician Unavailable JAVI BRAY Attending Clinician Unavailable LEONOR Attending Clinician Unavailable JUAN Attending Clinician Unavailable Nile Tejada MD Attending Clinician Boom Carlin MD Attending Clinician Caridad Escalante MD Attending Clinician Isabelle Ramos MD Attending Clinician [phone] Lazaro YLNN Attending Clinician ANA PAULA TAVARES Attending Clinician Unavailable STEVE GARCIA Attending Clinician Unavailable Nile TEJADA Admitting Clinician Unavailable SCOTT Admitting Clinician Unavailable JAVI BRAY Admitting Clinician Unavailable LEONOR Admitting Clinician Unavailable BOOM CARLIN Admitting Clinician Unavailable NARGIS Admitting Clinician Unavailable STEVE GARCIA Admitting Clinician Unavailable Payers Payer Name Policy Type Policy Number Effective Date Expiration Date S [facility] MEDICARE A B [id number] AETNA OPEN ACCESS [id number] 2017 HMO NAP 00:00:00 AARP MEDICARE [id number] 2020 COMPLETE CHOICE 00:00:00 PLAN 2 [facility] [id number] [facility] - MEDICARE MGD 00:00:00 - Medical [facility] [id number] 2020-Present [facility] MEDICARE [id number] 2021 ADVANTAGE 00:00:00 MEDICARE PART A [id number] 2020 AND B 00:00:00 Problems Condition Condition Condition Status Onset Resolution Last Treating Co mments Source Name Details Category Date Date Treatment Clinician Date Venous Venous Disease Active [facility] obstruct[facility] 6-06 Bret kes - n n 00:00: Medical 00 [place] [facility] Disease Active [facility] [...] osteoarthr 00:00: Me dical itis, itis, 00 Center right hip right hip Surgical Surgical Disease [...] adverse 00:00: Medical reaction 00 Center s IOPAMIDO Allergy Active High Anaphylaxis SL EH L 10-06 00:00: 00 Family History Family Member Diagnosis Comments Start Date Stop Date Source Natural father Lung cancer [facility] Natural mother Diabetes [facility] Social History Social Habit Start Date Stop Date Quantity Comments Source Sex Assigned [facility] Tobacco use and 2017-11-18 2017-11-[address] [facility] eladio - exposure 00:00:00 00:00:00 Medical Center Alcohol intake 2017-11-18 2017-11-18 Current drinker HOMAR Rodriguez - 00:00:00 00:00:00 of alcohol Medical Center (finding) Alcohol Comment 2017-10-06 2017-10-06 SOCIALLY [facility] Bret eladio - 00:00:00 00:00:00 Medical Center Smoking Status Start Date Stop Date Source Never smoker [facility] Medications Ordered Filled Start Stop Current [...] :00 3 days. Center packet polyethylen 2020- No 17g QD Take [address] [address] e glycol -24 -27 by mouth [facility] - (GLYCOLAX) 00:00: 23:59 daily for M edical 17 gram 00 :00 3 days. Center packet polyethylen 2020- No 17g QD Take [address] e glycol 09-07 by mouth [facility] - (GLYCOLAX) 00:00: 23:59 daily for M edical 17 gram 00 :00 3 days. Center packet gabapentin Yes 100mg QD Take [address] (NEURONTIN) 6-23 mg by [facility] - 100 MG 17:17: mouth Medical capsule 44 daily. Center gabapentin 0 Yes 100mg QD Take [address] (NEURONTIN) 6-23 mg by [facility] - 100 MG 17:17: mouth Medical capsule 44 daily. Center gabapentin Yes 100mg QD Take 100 CH [...] days. Max Daily Amount: 12 mg cyclobenzap 2020-0 2020- No 10mg Take [address] [facility] [...] days. Max Daily Amount: 12 mg cyclobenzap 2020-0 2020- No 10mg Take [address] [facility] rine 09-06 tablet (10 [facility] - (FLEXERIL) 00:00: 23:59 [...] days. Max Daily Amount: 12 mg enoxaparin 2020-0 2020- No 140mg Inject [facility] [...] days. Max Daily Amount: 4 tablets apixaban No 10mg Q.5D Take [address] (ELIQUIS) 5 08-25 tablets Luke s - mg Tab 00:00: [...] Inject 1 g [facility] chloride - intravenou [facility] - 0.9% (NS) 00:00: sly every Med ical PF Soln 20 00 8 (eight) Cent er mL with hours. meropenem 1 gram SolR 1 g sodium 2017- Yes 1g Inject 1 g [facility] chloride - intravenou [facility] - 0.9% (NS) 00:00: sly every Med ical PF Soln 20 00 8 (eight) Cent er mL with hours. meropenem 1 gram SolR 1 g sodium 2018- Yes 1g Inject 1 g [facility] t chloride - intravenou [facility] - 0.9% (NS) 00:00: sly [...] mouth 2 Center (two) times daily. apixaban 0 2020- No 5mg Q.5D Take 1 [facility] [...] Jerome Diastolic blood 2020-09-06 16:21:00 75 mm[Hg] [facility] Heart rate 2020-09-06 16:21:00 87 /min [facility] Body temperature 2020-09-06 16:21:00 35.78 Lovely [facility] Respiratory rate 2020-09-06 16:21:00 18 /min [facility] Oxygen saturation in 2020-09-06 16:21:00 97 /min [facility] Arterial blood by Medical Ce nter Pulse oximetry Body weight 2020-09-06 06:00:00 141.658 kg [facility] BMI 2020-09-06 06:00:00 50.41 kg/m2 [facility] Body height 2020-08-20 18:00:00 167.6 cm [facility] Procedures Procedure Date / Time Performed Performing Clinician [facility] e CT CHEST WITH IV CONTRAST 2020-09-05 12:35:00 Vandana Tejada [facility] COMPREHENSIVE METABOLIC 2020-09-05 05:16:[address] [facility] 2D ECHO W/ DOPPLER 2020-09-05 01:05:41 Vandana Tejada [facility] (CW/PW/COLOR) [facility] SARS-COV2/RT-PCR ([facility] & 2020-09-03 21:48:[address] [facility] - REF LABS) [facility] CBC W/PLT COUNT & AUTO 2020-09-03 06:17:00 Vandana Tejada [facility] CBC (HEMOGRAM ONLY) 2020-09-02 04:36:00 Hari Carlin [facility] PROTHROMBIN TIME/INR 2020-09-02 04:36:00 [facility] CBC (HEMOGRAM ONLY) 2020-09-01 03:48:00 Raegan [facility] PROTHROMBIN TIME/INR 2020-09-01 03:48:00 [facility] US CORE BIOPSY 2020-08-31 18:48:00 Vandana Tejada [facility] TISSUE EXAM 2020-08-31 18:37:00 Vandana Tejada [facility] VITAMIN B12 AND FOLATE 2020-08-31 04:45:00 Vandana Tejada [facility] CBC (HEMOGRAM ONLY) 2020-08-31 04:45:00 Raegan [facility] PROTHROMBIN TIME/INR 2020-08-31 04:45:[address] [facility] CT ABDOMEN/PELVIS WITH IV 2020-08-30 10:28:00 [facility] CTA AAA AND RUNOFF 2020-08-30 10:28:00 [facility] BUN AND CREATININE 2020-08-30 05:17:00 [facility] CBC (HEMOGRAM ONLY) 2020-08-30 05:17:00 Raegan [facility] PROTHROMBIN TIME/INR 2020-08-30 05:17:[address] [facility] HC ARTERIAL DOPPLER LEG 2020-08-29 16:05:[address] [facility] UNI [facility] CBC (HEMOGRAM ONLY) 2020-08-29 12:50:00 [facility] HEPARIN ASSAY - LOW 2020-08-29 12:50:00 [facility] - MOLECULAR WEIGHT [facility] CBC (HEMOGRAM ONLY) 2020-08-29 05:03:00 Raegan, [facility] PROTHROMBIN TIME/INR 2020-08-29 05:03:00 [facility] BUN AND CREATININE 2020-08-28 16:37:00 Traceyeria, [facility] - W/RATIO [facility] VENOUS DOPPLER LEG, LEFT 2020-08-28 12:43:[address] [facility] CBC (HEMOGRAM ONLY) 2020-08-28 04:42:00 Raegan, [facility] PROTHROMBIN TIME/INR 2020-08-28 04:42:00 [facility] SARS-COV2/RT-PCR ([facility] & 2020-08-27 18:10:[address] [facility] - REF LABS) [facility] PROTHROMBIN TIME/INR 2020-08-27 12:22:00 [facility] CBC (HEMOGRAM ONLY) 2020-08-27 04:06:00 Raegan [facility] PROTHROMBIN TIME/INR 2020-08-26 11:47:00 [facility] CBC (HEMOGRAM ONLY) 2020-08-26 11:47:00 [facility] CBC (HEMOGRAM ONLY) 2020-08-26 06:00:00 Raegan [facility] PROTHROMBIN TIME/INR 2020-08-25 18:11:00 SunKinga [facility] CBC W/PLT COUNT & AUTO 2020-08-25 14:27:00 [facility] CBC (HEMOGRAM ONLY) 2020-08-25 06:58:00 Raegan [facility] APTT 2020-08-25 06:49:00 [facility] 2020-08-24 22:45:[address] [facility] [place] [place] AP[facility] 2020-08-24 12:42:[address] [facility] [place] [place] BASIC METABOLIC PANEL (7) 2020-08-24 05:41:[address] [facility] CBC (HEMOGRAM ONLY) 2020-08-24 05:41:00 Hari Carlin [facility] APTT 2020-08-24 05:41:[address] [facility] [place] [place] AP[facility] 2020-08-23 21:14:[address] [facility] [place] [place] CBC (HEMOGRAM ONLY) 2020-08-23 14:11[facility] 2020-08-23 14:11:00 [facility] VENOUS DOPPLER LEG, LEFT 2020-08-23 12:46:00 [facility] BASIC METABOLIC PANEL (7) 2020-08-23 04:08:00 [facility] ([facility] ONLY[facility] 2020-08-23 04:08:00 Perla Carlineb Nur [facility] BASIC METABOLIC PANEL (7) 2020-08-22 05:37:[address] [facility] CBC (HEMOGRAM ONLY) 2020-08-22 05:37:00 Hari Carlin [facility] US EXTREMITY NON-VASCULAR 2020-08-21 14:30:00 Raegan Harivenus killian [facility] CBC (HEMOGRAM ONLY) 2020-08-21 05:50:00 Hari Carlin [facility] COMPREHENSIVE METABOLIC 2020-08-21 05:50:00 Hari Carlin [facility] PROTHROMBIN TIME/INR 2020-08-21 05:50:00 Hari Carlin [facility] XR HIP 2 VIEWS LEFT 2020-08-20 18:25:00 Hari Carlin [facility] XR LUMBAR SPINE 2 OR 3 2020-08-20 18:20:00 Hari Carlin [facility] XR KNEE 3 VIEWS LEFT 2020-08-20 18:14:00 Hari Carlin I [facility] CBC W/PLT COUNT & AUTO 2020-08-20 15:02:00 Hari Carlin [facility] DIFFERENTIAL [facility] COMPREHENSIVE METABOLIC 2020-08-20 15:02:00 Hari Carlin [facility] PANEL [facility] MAGNESIUM 2020-08-20 15:02:00 Hari Carlin [facility] PHOSPHORUS 2020-08-20 15:02:00 Hari Carlin [facility] LACTATE DEHYDROGENASE 2020-08-20 15:02:00 Hari Carlin [facility] (LDH) [facility] URIC ACID 2020-08-20 15:02:00 Hari Carlin [facility] Plan of Care Planned Activity Planned [...] Medica l Center colon (procedure) [code = 399572731] Future Scheduled 2018-11-[address] [facility] - Test 00:00:00 malignant neoplasm of Medica l Center colon (procedure) [code = 977248647] Future Scheduled 2018-11-[address] [facility] - Test 00:00:00 malignant neoplasm of Medica l Center colon (procedure) [code = 567952677] Future Scheduled 2017-10-[address] [facility] - Test 00:00:00 measurement Medical Center (procedure) [code = 63873513] Future Scheduled 2017-10-[address] [facility] k[facility] - Test 00:00:00 measurement Medical Center (procedure) [code = 49548750] Future Scheduled 2017-10-[address] [facility] k[facility] - Test 00:00:00 measurement Medical Center (procedure) [code = 27331556] Future Scheduled 2010 SHINGLES VACCINES (1 [facility] [...] (procedure) [code = [facility] 71984495] Future Scheduled [address] [facility] - Test 00:00:00 (procedure) [code = [facility] 03338733] Future Scheduled [address] [facility] - Test 00:00:00 (procedure) [code = [facility] 46481779] Future Scheduled [address] [facility] - Test 00:00:00 malignant neoplasm of Medica l Center cervix (procedure) [code = 402863745] Future Scheduled [address] [facility] - Test 00:00:00 malignant neoplasm of Medica l Center cervix (procedure) [code = 382580614] Future Scheduled [address] [facility] Test 00:00[facility]00 [facility]procedure) [code = 200900836] Future Scheduled 1979 DTAP/TDAP/TD VACCINES CH I [...] 00:00:00 examination Medical Center (regime/therapy) [code = 294421345] Future Scheduled 1970 Urine screening [facility] Test 00:00:00 protein (procedure) Medical Center [code = 430618407] Future Scheduled 1970 DIABETIC EYE EXAM [facility] - Test 00:00:00 [code = DIABETIC EYE Medical Center EXAM] Future Scheduled [address] [facility] - Test 00:00:00 examination Medical Center (regime/therapy) [code = 871386429] Future Scheduled 1970 Urine screening [facility] - Test 00:00:00 protein (procedure) Medical Center [code = 122978780] Future Scheduled 1970 DIABETIC EYE EXAM [facility] - Test 00:00:00 [code = DIABETIC EYE Medical Center EXAM] Future Scheduled [address] [facility] - Test 00:00:00 examination Medical Center (regime/therapy) [code = 128829731] Future Scheduled 1970 Urine screening [facility] - Test 00:00:00 protein (procedure) Medical Center [code = 509920096] Future Scheduled [address] [...] Medica l Center breast (procedure) [code = 617759306] Future Scheduled [address] [facility] - Test 00:00:00 [facility] breast (procedure) [code = 095344200] Future Scheduled [address] [facility] - Test 00:00:00 malignant neoplasm of [facility] breast (procedure) [code = 007607287] Encounters Start End Encounter Admission Attending Care Care Encounter Source Date/Time Date/Time Type Type Clinicians Facility Department ID 2020-12-24 Inpatient ER LOIDA TEJADA Inter Rad [id number] [facility] 00:09:17 VANDANA 2020-11-21 Outpatient SYSTEM, MDA JUAN [id number] 11:08:21 PROVIDER Holland gallego 2020-11-02 Inpatient EL MUNIZ, MDA MDA [id number] 23:20:41 GAURAV And erso R n 2020-11-02 Inpatient EL MUNIZ, JUAN MDA [id number] 23:20:37 [facility] And erso R n 2020-10-28 [facility] [id number] [facility] 00:00:00 Encounter [facility] 2020-10-17 Outpatient SYSTEM, JUAN MARTINEZ [id number] 12:21:12 PROVIDER Holland gallego 2021-04-03 2021-04-24 Inpatient ER DARLENE BELLE [facility] [id number] 15:10:00 12:50:00 Holland gallego 2021-04-23 2021-04-23 Inpatient EL BELÉN, MDA MDA [id number] 04:19:54 04:42:38 BRENDAN gallego 2021 2021 Inpatient EL MAYE, MDA MDA [id number] 17:08:59 17:35:08 BIJU gallego 2021-04-18 2021-04-18 Inpatient EL ZAULISESUR, MDA MDA [id number] 09:21:00 09:41:51 BRENDAN gallego 2021-04-17 2021-04-17 Inpatient EL DARLENE BELLE MDA MDA [id number] 03:37:16 03:55:45 Holland gallego 2021-04-15 2021-04-15 Inpatient EL SOMAIAH, MDA MDA [id number] MD 22:08:23 22:34:52 BOBRICK Lino o n 2021-04-13 2021-04-13 [facility] [id number] MD 08:40:41 09:10:01 BOBRICK Carsoners o n 2021-04-11 2021-04-[address] [facility], MDA MDA [id number] MD 02:08:42 02:31:26 BOBRICK Carsoners o n 2021-04-09 2021-04-10 [facility] MDA [id number] MD 23:08:04 00:00:29 BOBRICK Carsoners o n 2021-04-09 2021-04-09 [facility] MDA [id number] MD 17:32:06 18:10:07 BOB Lino o lashonda 2021-04-08 2021-04-08 Inpatient [facility] MDA MDA [id number] MD 18:04:44 18:36:32 IBRETT Boaz so n 2021-04-08 2021-04-08 Inpatient [facility] MDA MDA [id number] MD 15:56:48 17:31:59 Rafal Abarcaer so n 2021-04-08 2021-04-08 Inpatient [facility] MDA MDA [id number] 15:56:44 17:31:57 CRIS AbarcaRUBA Sandra so n 2021-04-06 2021-04-06 Inpatient THEA CHAVEZ, MDA MDA [id number] MD 13:57:21 14:18:48 SUE gallego 2021-04-06 2021-04-06 Inpatient THEA VILLAVICENCIO, MDA MDA [id number] MD 11:21:56 12:02:57 BIJU gallego 2021-04-03 2021-04-03 Inpatient THEA CHAVEZ, MDA MDA [id number] MD 22:23:50 22:40:30 SUE gallego 2021-04-03 2021-04-03 Outpatient THEA MUNIZ, MDA MDA [id number] MD 14:49:10 15:17:14 GAURAV gallego 2021-03-06 2021-03-06 Outpatient EL NICK, MDA MDA [id number] 13:20:00 23:59:00 KRYSTA Sandra so n 2021-03-06 2021-03-06 Outpatient EL ASAF, MDA MDA [id number] 12:54:39 13:19:00 CLAUDIA singleton n 2021-03-06 2021-03-06 Outpatient EL MUNIZ, MDA MDA [id number] MD 09:00:00 12:53:00 GAURAV Ferreira derso R n 2021-03-06 2021-03-06 Outpatient EL MUNIZ, MDA MDA [id number] 10:05:13 11:24:37 GAURAV An derso R n 2021-03-02 2021-03-02 Outpatient EL ASAF, MDA MDA [id number] 11:00:00 23:59:00 CLAUDIA singleton n 2021-03-01 2021-03-01 Outpatient EL ASAF, MDA MDA [id number] 11:57:34 12:10:03 CLAUDIA singleton n 2021-03-01 2021-03-01 Outpatient EL MUNIZ, MDA MDA [id number] 12:08:46 12:08:46 GAURAV An derso R n 2021-02-20 2021-02-20 Outpatient EL MUNIZ, MDA MDA [id number] 12:57:43 17:49:39 GAURAV Ferreira derso R n 2021-02-16 2021-02-16 Outpatient EL MUNIZ, MDA MDA [id number] 08:46:05 08:46:05 GAURAV An derso R n 2021-02-16 2021-02-16 Outpatient EL MUNIZ, MDA MDA [id number] MD 08:46:01 08:46:01 GAURAV An derso R n 2021-02-14 2021-02-14 Outpatient EL NICK, MDA MDA [id number] 16:13:03 16:13:03 KRYSTA Sandra so n 2021-02-14 2021-02-14 Outpatient EL NICK, MDA MDA [id number] 16:11:50 16:11:50 KRYSTA Sandra so n 2020-10-28 2020-11-03 Inpatient UR MUNIZ, MDA [facility] [id number] MD 08:47:00 13:55:00 GAURAV rosalesso R n 2020-11-03 2020-11-03 Inpatient EL MAYE, MDA MDA [id number] MD 08:41:05 09:10:15 BIJU gallego 2020-11-02 2020-11-02 Inpatient EL MUNIZ, MDA MDA [id number] MD 22:10:35 22:18:01 GAURAV rosalesso R n 2020-11-02 2020-11-02 Inpatient EL MAYE, MDA MDA [id number] MD 17:03:33 19:31:59 BIJU Lino o n 2020-11-02 2020-11-02 Inpatient EL MUNIZ, MDA MDA [id number] MD 08:16:22 08:26:03 GAURAV rosalesso R n 2020-10-31 2020-10-31 Inpatient EL STEFANO, MDA MDA [id number] MD 15:19:32 21:47:10 BAL gallego 2020-10-30 2020-10-30 Inpatient EL MUNIZ, MDA MDA [id number] MD 04:31:13 04:49:40 GAURAV rosalesso R n 2020-10-29 2020-10-29 Inpatient EL STEFANO, MDA MDA [id number] MD 18:24:24 19:40:21 BAL gallego 2020-10-29 2020-10-29 Inpatient EL SCOTT, MDA MDA [id number] MD 18:24:28 19:36:56 SUE gallego 2020-10-29 2020-10-29 Inpatient EL SCOTT, MDA MDA [id number] MD 10:00:26 10:24:36 SUE gallego 2020-10-28 2020-10-28 Inpatient EL SCOTT, MDA MDA [id number] MD 22:30:59 22:52:26 SUE gallego 2020-10-28 2020-10-28 Emergency EL KATARINA, MDA MDA [id number] MD 10:57:00 11:46:41 BRENDAN gallego 2020-10-14 2020-10-23 Inpatient ER SCOTT, MDA [facility] [id number] 16:40:00 16:38:00 SUE gallego 2020-10-21 2020-10-21 Inpatient PRISCILLA, MDA MDA [id number] 18:46:01 19:27:32 BOB gallego 2020-10-21 2020-10-21 Inpatient PRISCILLA, MDA MDA [id number] 14:16:27 14:16:55 BOB gallego 2020-10-20 2020-10-20 Inpatient PRISCILLA, MDA MDA [id number] 20:10:36 20:13:24 OBB gallego 2020-10-17 2020-10-17 Inpatient MAYE, MDA MDA [id number] 15:00:32 15:42:49 BIJU gallego 2020-10-16 2020-10-16 Inpatient PRISCILLA, MDA MDA [id number] 09:18:38 09:49:47 BOB gallego 2020-10-15 2020-10-15 Inpatient PRISCILLA, MDA MDA [id number] 11:01:50 11:06:18 BOB gallego 2020-10-14 2020-10-14 Emergency EL LEONOR, MDA MDA [id number] 19:53:40 20:54:56 ALEXYS gallego 2020-10-14 2020-10-14 Emergency EL STEVEN MARTINEZ MDA MDA [id number] 17:59:26 17:59:31 Holland gallego 2020-08-20 2020-09-06 [facility] ER Mallory, Vandana Nile [facility] [id number] 13:34:00 17:17:00 [facility] Willis 2020-08-20 2020-08-[address] [facility] [id number] [facility] 00:[facility] 00:00:00 [facility] Results Test Description Test Time Test Comments Results Result Comments Source Tissue Exam 2020-09-14 10:56:00 Test Item Value Reference Range Interpretation Comme nts Case Report (test code = 104) Surgical Pathology Report Case: [id number] Authorizing Provider: Vandana Tejada MD Collected: 08/31/2020 06:37 PM Ordering Location: [address] Received: 09/01/2020 08:13 AM Service Pathologist: Thien Radford MD Specimen: Groin, Left, left iliopsoas mass biopsy ADDENDUM (test code = 3381) [id number] aAPwibXZprrBcxk95eQH6xJ46FV5uTYTxHoV7RR WogeI8Red3VMEjNCDqzXRoL593h7znv6ucujIqy ED6pJusJIHcILKiEOeiGCWkWvWhRB1khS2eeTdd aN5wvVCzjOOcwIFwhCWcmDYvSARbffNcdi5wZPV snvYlpZ5vtqLDRIXzRW6sllR2eoH9VFY8zNWisy UmnMxer4QzAqVePEncikB2opMsURUda4RxcKz7C AXas3UdB7VdTW5xCWffnIUtjkZnxmOsJCMurjIh Wq1bHNysljN2nO6yGVBbROOdLLAvh97hlzaqQL4 LZMIpnZ7ixGjudXByI7dsUDAcbXlkQWoVOOKuED FUHIU5TLZlzfCoN4ICGUCoVQUev8gxIcTdEFMia bWomY3jVVjrLqdqP7psBdgpeHQqodAhpUZjmZEx JSAuhdvdqzrtQgRewOMtXUI9axC1HQLhNLvcOZS nsGDaNJWxNFQmTY0tcQJucFyoEHAoeLbpKYVxQD SjyrPrAMPxj09sxLFkqDActUt1m3waIYLvTJX1p nKvJZDsZCNrPEXxGRJukFAxZE9oLXFzBJRmioWo jJBgXiCFjKPpTKViduRjli3zooIeIIhocQWwkxT lfHNgpGCorOb8h6HiWrWvzUt4udRkVGCdPFWnoz MiNKlnb9T0EXAdvXdmclEovGAlZD3jPTLxKYSrI yOqTKUen8Ercn5blYXsBBDtarXXvwWqPDcnFUW3 bCLcwuB3hYDhIH5kEATzPQNqVPXga32ewNXyrK6 wDPQtdw6gzoC1VNDcq4omunPtXPypFTFjcb4zUH FhhA0xChRzbFOfiUmiDS62FyqpIDGecZOpSORza AAvD4UnPYS5fDnaZOFoSKLgDiJgcmVvBPPzTE5C IQUqIUWqi50sUYKnlvRjt79nkZq8UGNoy66kEML bFLCuXSVrKKSyHDGgsR2lkNM3fSwbANSrrOgmdn 7cbOXnHHMajbWEegHcPGWdpJFtkH0slwUpoABjH ZPgJOu3JEUuJzABrS6wNUYlBL8cX2bzNRvreood YXJ9 DIAGNOSIS (test code = 3220) x6azgJVbLHAgk7uvSBXybHUjLsYyBmDqMmLzMg p cdWMxIHtccnRmMVxlcGljOTIwMlxhbnNpXHNwbH NgE4PbpwhkMNizFU0xBR7chLtqxVMluLKuTOJtA fKns6zos925tUOjf1unVEUCjuibbEl2pEqkG94m u5S7YteeT02neIKvFFaisGXohsacuwIsVFEJUgA wVKNNMOQWVVyDPE1VL65VMyIYRWPQNDAEIF1HG5 q1RLZksqVPGPgXUUhLRNFPFDebItJBALqRH10cI TSutbRVNQ1OCEKFNtQSKoHLOYQIUEcLRmBAOH0V CU6XSTtQVPDFJ8GHDO7RMSpIBN2TDryvEBRuSXE RVA0XTZ4lHsVVM7KMQBEQTZRXMBfHJt5uKAGjxa 56XEY9WuDqp1H0GIP6LNNxHKZek2xuZPDmcKUkD eCcZtNmIzWbXfxydTZiRIKhEgFll6mjt218yPVz y2ejEBElUkX5vZPjZWBksVChQ134ZZZfPYpds9x do6XtGJTscDBih9X8RTYTshxagSa6fDbkC17zt8 K3MdwhL5dhBUAiKPNkG5WmYO1cLQWnEqn5YHN8H EG6COCwAIEqG8AgVC0vOPCyvWSvKGb5t3ijnDxf RFMeKHY3d1jaNSqumvRkRM3oqn6nlLq5i9zpfwV uYGVbXZZegFMGUSQoK3YvjKpgHe8eyBw5cMfmFi moDDQ3Pwb3HR3mxt89hqi2vGwtMADgtyceApL8Z XxqKKSljkltXZo4HYljPRMsjDI4CRTelWShJ0Zj AQKiUX8ppcy5XQA4IJbaLUEtMmV4XMSqsDGiFCT oiEynZHehi454APY4YoUiHK6eW5Xwq2Y1qA3xvB TzRAGteZHoGoFnLWAeai5veBAnRQgzy9BpXHE6f xN0pEAgwCPzQJGvOcU0EFyoCO3run06UTSsXFD1 td3txPAceKgmanTbhENoGKsxI3RrLFQaa130DHC gU3MuTSHly1F1zoVfVrFqBYJdlWP4upW0NQBxVR 0ztelqp8syVEwsGCrfYQNbkyR5lbZ6VRLulZOmX 4InrZ6uETBiJV3ioecke3zgRVI7LIyyFZZxCSH4 MrYlUIAvo4Npqhj8InHbj7VfiRHwKVhiU38jg02 2VPSmhjSxE0dkqIEaipkcjHVzhqewIDhbfdM0TV NfIDghumweUJBeSEaxJ9goQxSiVXRqdBanHHaan 4CoDVLmDISbElYtkPWaLMPiDsc0WANijIIhKILm FxHuN5rwfcyfUrEWWRBzc1jfB1vrmPCGeNQpD9G sMEbzgyGuVTyaDBupKNNyOAO0TH01URzbRPQmuz 19 CPT Code(s) (test code = 3357) k0nnwPAlYSKdyIP5UzQcNCNnb0urc4ZjiXDn cGF xWJmkuFOshbWckv76kCY7cD46NO1eVGHeFcA0WO JensX6Mmi0EERcKDGqlXKuQ166w4wyy2lacjQdr GM4sTsuRCYfQZNnHVtmCAYuDoZbJWjtBPXcETm6 HgNaGPP7DEI7YZa9ZGKlfz9= CLINICAL HISTORY (test code = 3356) g8mdyYThGLHsnQW1XlVaGNRcx4ddc2W sdHBncGF fYKvljXFljjXkcl62nGC4tJ32GZ4lBQNvRhT7PH DqqfK0Jiq2UKOfGLSdiMBhP475t0ayv2fqsbVmh OT2kMccLGDkOYPvMZduGBHtIhGiGESjpGIzai6i yaRutKA7A6xudO9ac71ydeJiQSVdPBO1AhWkhYW 1HzXdmFPtFDVyBQdwKTG9 SPECIMEN SOURCE (test code = 3377) p1rstVAiMLQlgZU8XtZbITTcg1jqf1Uf dHBncGF oPHnfrCKryzBftp89rNS6eQ98RL3mYLDcCtX2NL PrufR1Bes5GRKjYYHujJKbV407o3dae1kztwZvy IY7uGyvSLVaNFHoCRqzFBLxQqUxPAVbgXMqrb7v dm5rgAyebVNpFINoyHKzeT== GROSS DESCRIPTION (test code = 3366) d3ryvSYbYANtnZRdDeAkDAWcLKOvg8 lcZGVmbGF mFaNhBmTeChYoGyfjhGUaVFXpKeNuu1ftl283nV Ihe9xiKOPZjfttzUx7i5cbSCQgChL7sXWmPFtiB 6slyhBgfCHkHSFzDDf1tO42QSYvfX1bsCKwGWyo fdWxCiP6MHfeOGUaXzK5QQOncBRuJBJnU9xvFBR nCTtxNYNjRHgtwOPqNOB5zBmqa9D8jCAdqWImsJ guWfOtOuFcYQSBf4IeVFz1oIckX0LoDVPeRgX9u SPnEGOlZUwqJCPvBMThleH3vV54YRxgmaX6uZNg x8Dfr22fx146iZ4xyDYzWLX8JRPoZDBjpCUuRIC oHBT3GGJciWKvL9j5ZyFpqZJuX5Q5ZgZgbBAtQ4 N6NjLnpENbL3I0SwXtdOFoGYIecVJdRm3lpWStn TOgdj1dck69VBS8j2FspFaiVVP1IID6IdLrRb4s uYJgFPHfQQTsxPDyPPPbDX3xgQUsNCRsjD1xifw eZFXsOtMdxcpcVHUuePkkkeUaOw1lhQerGRS4MM uqD6vmmR6uOyS4NQhnU9gmiM3bJYc9XMwrnWB0G ADkdN7tZT5qehlqg4xdGrKnRP3yovkfi6xpApHw GQ4ptsb4e8xvOpYlYE6janyfn5aeTsUjUTepYZU paftoPOKwx2VpgzliGREnj4DkH3PijRamG08xgD biT55zBOZrhDwccI6etBqtsT7eMmGaMrTwXZqkA XJkXHBsYWluXGYxXGZzMjBcbGFuZzEwMzNcaGlj mGudIMehAbFqBZIgHOudG0vgYaUfUaPwMZDKZwN IXWWrpRViFZRhafBbi7YtNZmdlwEaKVVnjIRqAX jwfDywvPavLUDmjJmwbrMfA7P9jvUqBN0wXWDtU FVnG9KeWZFmA28pHEVxgX5kBRIaLZ2cCDVxoh3h saxdvZFzmRRoNW6rGVXzbrGjv4ZtSI1gVW70qZZ wyKigHHcnRPyly1xeeBCrg30yfGI6uUGvuCWlA4 2gGFKgrjXnW2qoHaDiQjIpFU8zRORqZUsaJMonx uq9dHQktSVuyTH2CTBrwL3fzV43doKkyeJTPT5l qZfxDCpiwB3nVGFnNPqaIIFiT9EbpN0mBW1HAkk sGOFdPLNVK9GsR46dwHKhdA== MICROSCOPIC DESCRIPTION (test code = p9cxrHRtEJGidQW5TsOdDYVhx1vqh3 BsdHBncGF 8891) wZSsxjYZgliGznb90kLN5zL84SR6tLLQwLqU1AK IcitN4Cfg6TNBsJDCnqHHtW221w7oin6gezlTlv ZL3bTqtFXFqAUBlXDzmZYMvWfGpHLSZAx4GHDJJ XHBhcn0= SPECIAL STUDIES (test code = 3376) h8gyeMRhBVDriKG9GuHpECJkl7ygv1Tq dHBncGF iDBpryAEcuxIjgw38zZV2nC31PB8tBMEjVbC9BL QaxkK6Vlr4PRUjKYGavUTuE771IXDaOMDaiYdlm tl7eB65WUNkyS3vxTUiDOy3RFVtzdYkkJvpsL4c HxMyKnItJzYPyHXavO94QTEhifJ7IOLqu31ng8W mbBucvwVwPQNfLVdaR2o0LWKgXGMdLMQ5y1Odt9 KakR8llC4tjTnkmX8qqPSlvFS9inibv8Lju8TxR 6qzjLGiuMJlppOjZIHctuNETB1REpUOBY4uC6KO QJMDYoqyLhAfHXdjWZASZHaYXPPHXJB5DKXZSND pVWMPRRzfZOXiL19blRSejPBKwGdrRHVkPHdtbK buMUN5YXBCyb8hx7SvDMPebc03mnUff2CuaAy1Q FGvf265xj1uuqX8XMDdLEF5NLu3KJNrXMZtgP7g KjE6xEMgROPbUNS8PCP5SVLvq7Z0ZT2oSSXlATG wGGEwylRha9jmf8ckWDChYVD5umXyrS1oN4ZlEC Awq5OskPucIJComIxtrrCiFSLcpLYgMJKzpV89C NGkzIGijSGoPMDiDYK1GSddhH9dLnRVcdDpto8c rAAsy0VjxEq0YJRavxEbofEoVOEhybVvM06uzNB isBYjk8gmbjPzedAnrOIemLWhYODeETV6AEw3XX KcBQgiEORdVMxaWCMjOG1fyW9odQqzhG8tcWJfn NU0bzawoZVywH3hJ7IqCXSzx5Pdqnmlw7LmFWSf ukUqzr3aXDLgcIOJWLefq3UjF1ZsBYp1d5UajVq sQLyyOWz3FeAgSIIlyROpxLYDVB90FDElONAuuZ sikV6phDLIJGCjewL6v9J5IOxmGTHhCRz3EGrtj yShTACgzY4eJHObIV5rMDo6hjAyZQOdi3IkNR3m PHZqmNEuVRN8PJJfh0OwR7Olz6MoWSTyJEYkdp8 vchPkKxHYoMXbZAWkia91PGRdQQ4lT8lgHKVcYM MtfkOsaPWoe3GaQZTpvUU4dWOnRY7NPhPPd42iF LMxPQBSyxIyUSXvqIhhjGB1fhF4mD1lVfMWsUUs CeKEXRwrweDdTKBxyk0awsZjYWObXKIdk9HloHN hgNCpmsImA9Aim2ReMWJtly01PSmjoAKrae93IG 1zB6Usb0YkdT9oOJlqCYBsj3ErnGOfeXEzFEZkg 8FfS4uussghHHnddZDeiN5kCVMlNSz1VYQtf7Jl VOSjz0LfOoPsmpLlUINnXYLiLURcgV80HMT5eKj vxCisetPnLS1oJQLizmAtXYSnTOSyaP4qSEwfwb TjZJKwluD9j1M9BEwlPUEkyuSkRjrxTLY8kuCro cZ8qGJwV0oocujbPWihGAGgk3RpzR6kgZGUcCFm d5SpwBHptPEJxOMsXR0emxNyKR5wVEV7AAcmFSQ OMDQiFBhdVXLuWSP8FUsfJiclBIQ3poNqDFYqr2 PsEVwvG2icJ82qfSkkkGg8zYIfxNhqoCFfnGOsX JUznqM9y3O4UFAde0KlwbzcCNFszm3= Gross assessment was performed at (test [facility] enter, code = 2777) Department of Pathology, [address] [place] [address], [place] [address], Technical component was performed at [facility] er, (test code = 2778) Department of Pathology, [address] [place] [address], Professional component was performed at [facility] clive, (test code = 2779) Department of Pathology, [address] [place] [address], [facility] [id number] 10:56:00 Test Item Value Reference Range Interpretation Comments Case Report (test code Surgical Pathology = 104) Report Case: [id number] Authorizing Provider: Vandana Tejada MD Collected: 08/31/2020 06:37 PM Ordering Location: [address] Received: 09/01/2020 08:13 AM Service Pathologist: Thien Radford MD Specimen: Groin, Left, left iliopsoas mass biopsy ADDENDUM (test code = d9romYErZMYclLD4VtRyMX 3381) Dyb9var5AyaOHqpMRoNWbj jWMxcfVmln89fME1wR14KS 1dVNIoYnW5DEIgncN0Dgs9 YTFdXHTlgZRxO304k4kga8 qiivDlvPQ4wQydCLOqCNXb KWpkRRIsZnMuHQ7nwI9vqF dtbU8gqKGtbCFtaELioKNv eSKgLYIqwxWugb3qMKGjsx XvaY2zlqTOWBAhJG5zkzG8 nuY5BOP7zNPbcwUqwNivv5 IlUfFsATwfgrW3wvYxVFIb k9WqbHw8YMFdy2ZuE0KqXW 4gVGhleSBhcmUgbmVnYXRp xdZeNx5aGPjiswF0fZ8yPE VcKEQaKAWdb98ddhcmDP0D OQZrzF8wsJonrXVpL2ymJY FjdGluIChTTUEpLCBNVUM0 LYZqryPvZ0EGDJTzGTNyc6 qeUvRiPRBheoWbtA0zGJnh UczlE1lmChtwmLFausYlsE FibGUsIHJhbmdpbmcgZnJv eTMxQGT8hqU6BADqYIltKZ RqwUWxZHSxGNYuVW6cpDWs dGljIGNlbGxzIHByZXNlbn MnLEVrh86obYVpzZRwiCf9 x5mvQXFsHQP8jwPvQBIzZI WnODJjPLLrkBEzAH5zEEXd ZWQgbnVjbGVpLiBUaGVyZS IrrjKyzh2lquIjGMlisNQp qiDtiUWvoTGhdRn7k5GqRd KwqPq4shPsFBTfHXIjuqWt EGajl6Y2LLMkwUtfjiTxdB XdUO9aXXRlIJNkRqPsVCHn c0Tsqu7jvRKpAJCmakOLzj GbWCkkOTJ2lVZirbC6iHVd TL2gFYXpFVKvFUEhs99njQ EtlL3bOEZavn2xzkT6RZQh y2ilooXpMAlhETYnxx7oGJ OqxO1pBpKptMGunPekEP40 LlxwYXJccGFyIFRoaXMgY2 NaXMX4xAtcVAPdKNBuRhEw imDmFWDoWW0IAUCqMGGmn0 4dEJGdneLhu58kiMe3HXVo t82bDOVcAJYsGLSgIGZsXZ HyqT8rjQS1sAnmIVWmsSsc rg5seGMvNAAsicXIoaTlWA AosOXwnD7uiiZylUZlVYYz DFf1WFEnOhENoP8qJMWjWC 4bU3onXNunkcqjBYX8 DIAGNOSIS (test code = n6dtbVCyNGBol9xqEUFnqD 3220) FuZzEwMzNcZnRuYmpcdWMx IHtccnRmMVxlcGljOTIwMl rbtmOrVXWupYVoB9Orqizs KFiwTJ4nGR6chZusoGTeqV WbIALbHxDwd1wjb717oVZh y8kyXGQIkcjabFz8pYuxG3 5dr2T8OdslK52xbMIgSSwi bGFpblxmczIwIFBBUlQgQS YVEVQIFFfHIR2DS55YOwQX KPDEOMGJOF7AC1s8NVAikd BTUElORExFIENFTEwgTkVP QFcTV04uNGOudiDLJD7NWT BJTlRFUlBSRVRBVElPTiBQ UM4RUO3BGOxUEVWVH1QSKY 7JEExCUX3FVvhyEOVfAFLW NV1IRM3dSqFCY4MZEIWMAA YUQIwERj3kTSYxoc94ZIE1 ZgVlt9D8JPJ7UDYzAVPhc8 lcZGVmbGFuZzEwMzNcZnRu RvkejXGnRCLeTlSeh5axt2 25wEGgk1ywKFYrInH4kPEu FMFjbRGeM164PWBuUCjpy1 njo7AoZKJqsQFlm5Z3LBXI ilxbeKk3qEpqE67pg7H7Ia zjM0ipGZJsFNVpV9NkHZ4a ABJiKzh1SEF9OQJ1CGJuYK WpC1DgDT8pILWlsNQiGLe2 z3anqUeaLHEoTFQ7t9rcSH neupNhXJ2kkw1ugQx6p7ek czEgRGVmYXVsdCBQYXJhZ3 OywDbyUg5tuDi7mKgiRvxw ERD8Hjw6ZY7okc49abq4kK nzXTYfuvytCoA2NCfuCFCi bwdmQPs2FRrzCTHqjMV9GK ZmnBXhN4ApZUIvSV2jkgl2 PUA2ANrqAARqLxN9YMQpiI VzNFWblMuyAYfmb058XQX7 StMxHM2zG2Cef5W8vO7uoG YlWXIsdLOmCkTvQBXlvl3b rYBtZTfcx2BfJQU3xsZ4nJ WaaKRqYCPdVyB2JPslMJ9l za83KYZxHKZ7ku3kgOBpvZ agwmZubTUpBIurE5DlIPKd h324BRCnT1NrNAUca4T8ks NdMzIoQEIocVB8gtH6MGYj JK5ldvjhi7crSKcuSVrrAO WxvrK3omT4TMIscAKvK0Fn nT2dDSDkDO0dtqiwq0wdQM J2JVaeIYBeTVV7PzByBDVs m9Alxwm1TaLlk4UcxHHbDP jcS99fz336FIHwmqMcI0jk bGFpblxwbGFpblxmMFxmcz I8TYHeOGrtfnopTAVmWUxs Q0hzWkBdLKIxbQkqFWlln0 NoXGYxXGZzMjJcdGFiXHRh Eja6SNGciKSgXHQhPxNbQ2 ssoznxZqKGRRWgb4jeP3ly mAKPcWVaW4SkVKaeogMbYP sdCJcpPQUjGIS7KP41VCtn HKUuld29 CPT Code(s) (test code q5qejUBjGOBrdMK1EwVsOU = 3357) Hep7fqj8SzpFSxtIDoLFso kLLcvkTyfv50jZJ2sD88IX 3cHSZxVlM4EXWadzC7Til3 EEYaYVNmvPFkM657i1coz5 foeuGzmMS0lSljOAJvRLGj YWluXGZzMjAgODgzMDUsID a8TfItGZO4ENY4OZr6WETj cn0= CLINICAL HISTORY (test t2cvhZTwUWZsnZA0PpArOL code = 3356) Kke3cyj4IuaUHopRTzNZkj zQItaxHtvi64rXY4aR77VI 1pKTNkSsL4YRVayhB3Yhr3 KXEiTAAteARdS047i2mlz9 nxorRdmDP8iOoeRPNrTXLs YWluXGZzMjAgTGVmdCBncm 3qiuIiyOB4Z0udtH8di05f jgFiDZNeBXW2NxXcgNL0Sy EgeCAyIGNtIFxwYXJ9 SPECIMEN SOURCE (test q6glpBTdRLMljZM5IoAgFA code = 3377) Xql9wtc0MwhTLbkFIgGSoh jIMgurRlfr87jFZ5pV30XE 6jTEKcBsO8ZDBpfnJ2Pbd6 PVWcLYCesQFoO773h5yht4 bipvIyoCE2qIyhKPAwNVWe YWluXGZzMjAgTGVmdCBn 3ivr8haAhroQUvHRQybGBf fQ== GROSS DESCRIPTION (test f0ndnNOzQQBrzIKbGbGvBI code = 3366) XuFIQjz0xuPQRkdJQkYrIb MzNcZnRuYmpcdWMxXGRlZm Bfd3wlx915oHAmi8dvTQWC iugmrPv9h8waWGInXiA7mO EvSEqkN0fznlOjzDUhDOLu QAc3bC81CRTpgJ5zbPXxBU tpmrYaGdI9XRcwOUItLvH8 NWXlsJHjANYoG5udALDaSK awLCDaWAvwfIEoFFX0xGuk q7I2bYLjwTPzsEbxPlKcAt DuONYDs6ArNOz9jJoaX0Zt JSUxIaG0oYQfIIRvWCyiDH NwCLTjnaA4cL10SFszkhM6 eXCbc5Idi66yk477tE4brA GhFFS1MIUlWTGazTFzGKMn QSG4LQFrbPYeS1n5BvVbuF TmO4Y0CoQxlOVqI2U3NdRl vWOfU2W7OiMiuXIiTEQixR MsKi0lqPSpvCSamd2whd98 OZF6t6RarRygGUE5HXZ3Vu CdDk1jiLAvWWJoZKIvrTJp BVZzOV6lzRAjNCFxhG5oyw xjXHBnYnJkcmhlYWRccGdi axUoUf1ocMnrLAO0KFumQ3 cpnF4wEdB5IHdfB1mtoC3o RLm9UItqpIM0SAEwjF3rJG 0lqderx3cgGuJdXL0vsrqe o2rlCyUkSI6sxay1n3qyMk KnHJ3abdsqh2ieFoUqKYec VCEnrshvEQWcr0SgngkvUK Tqf6HvA9UfqRgkV32kdIwk X49hVWVkoVivkR3dmJygkI 5cZjBcZnMyNFxwYXJkXHBs YWluXGYxXGZzMjBcbGFuZz EwMzNcaGljaFxmMVxkYmNo YMFnBWuyV1rbWgHvObAuUM BBLiBSZWNlaXZlZCBpbiBm e2YuZGxwepTdBWKulIIuKE dpdGggdGhlIHBhdGllbnRc U4U0bzKwDU1bPIJmOYFhR9 AqEXUtK44bJENypO6hGTMm SI3aJRMlln8nndenbTPwjB NpJY3pDNGfjdYva5UnHG1g FZ78iQDfkIkpZRbpGTrhu5 psdHMyf01smGF5gHFqiYSd Y64mEIXuirEsB9fkJsJlHt KaYO8uHGYbNUjqENnoaau9 xVRzfFJuxIE8UMZewU2qcQ 87nqFpyaBWGN9fxVoxZAdh sF9nDWJcXQypSLBfC5GybL 5eAB6DItvpUZMxGFXKL3Fr D86ydKFjnP== MICROSCOPIC DESCRIPTION f7ewxCGfRFPrjAO1ZxCrML (test code = 3371) Rcc3syd6MwzZDjhDCzAJqw qGUwdfLdjo10lGX1xT42TZ 2iWAAvMwI5SQFubrC4Hno1 MPMsMCKodZVeC501w4wsm6 jaleTvkRM0dUxvKWJdTJSi NRicRBTqVnDoMKFIWg9QXJ VEXHBhcn0= SPECIAL STUDIES (test d6lvaIFlIKXdrBG2NcNqVH code = 3376) Vmb4unk2QdlEJidRYeZSvg bIWvmpGpmd13sVE8sC25MG 3eZVNfMgE6SRBmwqZ9Abk5 OOGcMPZbmLMjO095UIGoKD QvaSyfgrw0dC53ZXZklC5w lJOdBPb3EAYkdaZmnBvrdI 8zXdLwWhIpJxLYjWKugI47 DEQvfhB2AFAyc47sn4ZfdB tmlgQaGUSxYDtzU4v8ISBi MCQaMLF3q9Kiq4DrhK2myR 4bwCwsfA0svJSdsJO6ytxi h8Uyp0XaC1gvySAphKQupj NsIEEukgKJTY5EAgPLLN4k W8BNHGIFQmqkGeBkLYsaAB URHEpBVCNMROM1XKPSHFAg CZIBHTntUHFjA25adTJnoO BTbGlkZXMgRXhhbWluZWQ6 TUYRfz8yg4ZoXBVbtu45re Zzi9UliKh2PYXlv403bh0h tkP6WHXlSEG5OZw0WETfLL FxbQ1cFuU6nRIkDUNwXNS9 XWM5WDYqc1D4OR1eVWDmSH RrJBTiidEip5fak2hvRKPk YEO0yhJvxA8yT3HuFKKwg4 YgdGhlIHBhdGllbnRzIHNh sAJvQYOziO03IFPppYXevP FnHJWvAVM2FAmjxX8lPlET brQeur3chJFjk2WouKy8HE AwtpUzhoMmHJQolwVsK95x iOEqjZIhx8rcfbYhznYrgO UzzRCuCQIxDHN6JNf2AFLy RYxpVYLxRCczHSWiNA1ecV 5abJtqyD1paYTenRK2afct bSLpoS6jU9OgRCHyu7Zrda irn3StLSQsztBmrg2yDBOt vLBUIGjjm2XuB0LuRRm0z1 XtcXilRSziQFw6NmKeTSLi iRZmwHONVK77FZSnPRVeiQ zkaJ9blHGLHKGcozC2l3T1 VYbqAGYtMBu6LZzsxxAyQZ ZujK0yCXCgNS7kQYv4ofHo TWIvq9FaGM2cNLGtwBFoEL B6IJKvz9XfR0Zoe9HtYLZs YEQgen6rexXzGmYOiFRuYL Opjn36RJXoCN5wP3enNZJp EJHbdgPcoBDya5KyKDDebC N8lYOzGM4MYnUIs92zMPDl NFYCtbAfVHXuyLyqnHI1md M3pU6sQvEBrYYkTmBWIGpa axIpRAHuhh0tbxVcVHZeTN Qfi5SopBWnpPWcyuLuS4Ja l6LcYWCawl66JXyayDZqgb 45AY8oY4Yvi4GtnO6eVOjo WHEbz7FgiEXsdWWpKLPzr1 UlD9xjknojVHaljIShqS6u QTByYXe6KRUvr9AyLJVcs1 QgYmUgcmVnYXJkZWQgYXMg jL00HGE5vWlkoTdibqEvLO 8sZDThmxVrDSSiRRLkuV1i EJiojxMfBJAqaoG3e1P6RM vfQUGaibBoWagpFUV6irZj maQ4iLCmP3ijbsprRJqtPX Vjy8NdrI7guVIIiOFyl2Sv zDDucTYJvMIxPC9tqcLpYP 5bFVP0XTahAISLQDSlDTew EBXyTMU4GJxdXzhlBYD4yv IpJCQev8AqDOfyA1xgL31s iTnjqIo9hDNvuUhavNDjfK YvFVQqgiI2b1T5QHQvt1Rc bmcuXHBhcn0= Gross assessment was [facility] performed at ([facility], = 2777) Department of Pathology, [address] [place] [address], Technical component was [facility] performed at ([facility], = 2778) Department of Pathology, [address] [place] [address], Professional component [facility] was performed at ([facility], code = 2779) Department of Pathology, [address] [place] [address], [id number] 10:56:00 Test Item Value Reference Range Interpretation Comments Case Report (test code Surgical Pathology = 104) Report Case: [id number] Authorizing Provider: Vandana Tejada MD Collected: 08/31/2020 06:37 PM Ordering Location: [address] Received: 09/01/2020 08:13 AM Service Pathologist: Thien Radford MD Specimen: Groin, Left, left iliopsoas mass biopsy ADDENDUM (test code = q9ukpNLlBSTbwSB7ZaXbYS 3381) Bmh7cxf5XmxPGxnCAbPSdg jHQxecTano07oFL8iW26CT 4sNXEqUrC7MLUvgdU4Wis2 SLSnOPNimPKnR168j0wpn7 kuuuWtnWI8xDpgBLRtTETk VNhpDBJwJdRvAM3noU6ksW eoaN3vfPHnnTCogOKtdUYd fXPwJBZdlaFpba6nDZBvli OtmW3xlzCDMVCmVS2ynsM1 olQ8OGT0lMKckeYdnDzxy5 PhSnDgRNqjacS8nqJhJRNa t7KweWj0IATtw5FqO3LlLZ 4gVGhleSBhcmUgbmVnYXRp koYnDg6cSTwzllY1xJ5mBA FrLREuCWUit66dnftoZW6U KBCitX1xyWyneFCdH8fhYD FjdGluIChTTUEpLCBNVUM0 MIMbayLiI9IESUVgEYZvj4 gmLdSpSPZbqcVliV2cQKnx YbzvZ6aeRvqqxCPpctGgbT FibGUsIHJhbmdpbmcgZnJv wKOzXOS4rlS9QZEeOQxaPK BnxNKpJLEbVQLuCQ7xiQFl dGljIGNlbGxzIHByZXNlbn ToZAMum91enBSaoKHucRq2 o7wxTTHfOLS9yaRaHTQpEB MnXKVuTJSbeCFcMZ0nRNKk ZWQgbnVjbGVpLiBUaGVyZS EdqhXqug9ktqFgQFmtgQYz mrHzkBKofUMgnNn9a7XwUs JhaOu0jmSsYOWmSSGadiLm WOzjc1K3KAOfhSelawUnxX IsCL7tDMPbCJUqCvLpUTTy y2Mrnc1fvEKyLUWxukONxy JwPRnnXGK9bTLnzxO6kCHt WS5xQVDpAIWsMXLvc94dlS DuwU3pEGVxcb3wxfE9WULp s3xgssMrSDwnMYLvqk4xUN QuqO8oSsBlkHUxnQwoPE85 LlxwYXJccGFyIFRoaXMgY2 ObIBR7hTcnADUiGFBiTsGw qaUlYGZwLV9XPWFvQCGzr6 8yHGEqcrZrb34qoJt4ZZOs n26lVGLpOQTpEOXgMXElPZ XojZ7yfKR4uLfxLKRueKwe if0rgXBbUUQdxfPXueRgFF ZlsXAcuC4dqvNdrZFcMSTx JWc0YALrAgFMoD0iLKMrAE 5sJ0caSPppnocoMGK4 DIAGNOSIS (test code = k9vdtNCqJYKmh2pnTTHaqB 3220) FuZzEwMzNcZnRuYmpcdWMx IHtccnRmMVxlcGljOTIwMl nwafOnGIEtzFAyV0Bfgnow APsmSN6lRU9vzUsrlEZjnK WtLTAxSmYrd6rea415zYUf g4azSSLFkwobsMp3tEzaZ4 2nn2L5LesoK03rkKUdKOgj bGFpblxmczIwIFBBUlQgQS PNHULGTHoLWH9CC64EThOU QTNRWUXSBP4BD4n3JSXnon BTUElORExFIENFTEwgTkVP MUkFN82xNHFakiDQUE7DUL BJTlRFUlBSRVRBVElPTiBQ RY7KXX6OQIhXLLMUU9DNDU 4UAHeDMH1VVxqqLKXiEVIA AS9YBW1uIxBSG7SPCSATMN GWYOlJOo2nNMSpqt24XNK9 RyCih9E7USB7RWNxEDYam1 lcZGVmbGFuZzEwMzNcZnRu NhmnwJLqZRDdYeFsz0wmo4 99xVFoj0fcGKUwJyL4qRQe BSPtaHWdD771ROErGRkvx7 pjo1NsPUFboSFqt8L6HFAR ojdxgVr9bWxyH92gr5L0Lw igO9hnKPYkQEZxC5ImFM5c WVLwTxe2VDG2QRX0UTYjRU UyU2JfDB1sWCOljIXcIEa0 v2rqbHpqKGWxPVA1h5hcSJ zpooJiWK0loq7trGm1b4ke czEgRGVmYXVsdCBQYXJhZ3 ZxzDuhIs2cyOw5tPjmAyzp AWN5Xrs3UC5qee35ceg3dS nuQTSszdzgUaH3PRxuBCXw bmngZSb8JTwoDTAfpOH9UF KapMMbS6ZiYRWkJN1kxkn0 VJF3MLwhLMMnOtQ1FEMzdA ZvWGMwoCfdQJnyz646HNR9 RhVtVR1dR1Eaj4R8bD3lmX BeUINdwINvImZiLLQwqs3d kENfZIhzr3WtFFV4zuM4fB VrmDQbHUCnSzO6CZrrOX7x gq25RQThIFP9do3bgBPekI ljxrPfmMVyHXusD6GbXNXj y453TDJgF8PhZICut0S3kn BkCpVlJVOofTS8yhZ2EDNf AR2hainri2qyVQkoTQdjLL UtbeY8lkP0SMWtsSFvC6Lz dU8oHKVuSY0bcutsd8whUU T0FWahLKYjLAH7FlNhGZKr o8Fdjmt0CsYkj9TxpVYuYV yiA05rt492FRZmqvWoL6me bGFpblxwbGFpblxmMFxmcz Q3QPAnKZkgvgynKVOpFCqg A7umGuIiHSJddMvsKDdgq1 NoXGYxXGZzMjJcdGFiXHRh Zve1KSKtlEViJAAkFdJsJ2 itgluyQcRIPVFyr3gqV6dk oEHDzGKeJ3QvRJwejeWxDF dzHEpiRNLuJQC9HU85OWtn HWDljo31 CPT Code(s) (test code j2sdsPGvEMWxbMC8WnAlAB = 3357) Jec1pfv0XwiGCivACgMYqz yUCycqQmeu68aMA4pG36AE 1mQOBfMjB8LYBkymZ5Guo9 LJOeWOWpbZQfA791l3hdt5 qawwTyjMZ3iBqpHQDmPOHx YWluXGZzMjAgODgzMDUsID l5LoWiXLR7XQD9MJr5BOKi cn0= CLINICAL HISTORY (test f5uosMTjPAEwmPZ2HgVgIW code = 3356) Bxl9gvl2AfbQKbrDIhIPvo gLDisyKnha66mWA6bW68WO 9zYHTpQjM5QFYormB0Rwj6 JWQxWISwvRQsT115r6cyk0 hsyfMbpOV1xTabZCMkMHFs YWluXGZzMjAgTGVmdCBn 7kasVwuLH2I4qdgB1kt25n yvKlRIScLET6AbSkyVN5Kj EgeCAyIGNtIFxwYXJ9 SPECIMEN SOURCE (test h4uyhBAaQBRlkFK4GvBdAA code = 3377) Pkn2noa1VogVIamZOvHNij qEEynxRefq62jZQ2aJ94EZ 7tUGTeXiG6JRWeicV4Kiz9 HIWiYWCnkOThK031m5bsw4 ihnxPphVJ6jGjbGTTgRXUv YWluXGZzMjAgTGVmdCFl[facility] 5rdm3gtWugbLCoAEHypZDv fQ== GROSS DESCRIPTION (test s3kvpECnEIHrmFMdPdZvUZ code = 3366) BpFAYft8wbLNLpbWVeEiRg MzNcZnRuYmpcdWMxXGRlZm Xuq5vup596wBFbj6crANPS jkteuZs6k8mxUZKtPrA7fA LeBZucN2bhcuRrjVFsTOTx PUv3bX43OLKjiV7jdRCuMO uusnZwArP4DAjeTXCfPwH8 XNWqrADsUUPwI6twBQCvBL cwYUFwOPtbhRGwVQB8wLvx q4X9zFWeeDJsoQwxEqUlLz WyRTYSv9YqDCh7nMwuM4Wf EQEjShM5yXCnVFUgHMdoSQ CgXZVrtrV4eE06CQvoubQ4 vJOlk5Mib34vf715aM2aeJ ZqVLC7POXzZVIwtSIvPXMh ZON9EMBilPVtT1n0CsNojF FoB3Q1XlJvaNIwO8J0BqHz nRSxO7W4KgCirOIzCJTvwF ZsZl8zmOQzvYPmmx4bam07 GLE7b4MneKhsHXW0WBT7Zy SjLf0ytTYxUIWyTAEhpMHy CYBdJI4goYHeBILbuW4jzu xjXHBnYnJkcmhlYWRccGdi liFcOy4ylJphRVL9CCtjL1 spkB3fBlG2XVnrD6pzrM2i QDa4XMdlqZI1PBEroA6uNT 4facigh1omFfYjRC8ztxkm n9kkFeQcTL6kzzn7e2fhIo IbKH8ehkbcm3khAzUpOOfi TDKshbrlECHfr6PsatmcYX Gue2BeY7RfvRhwW71acAru T94pEYLpgMzugZ4otGrwxU 5cZjBcZnMyNFxwYXJkXHBs YWluXGYxXGZzMjBcbGFuZz EwMzNcaGljaFxmMVxkYmNo WHTaAKvlF6azGjHaRsXcPQ BBLiBSZWNlaXZlZCBpbiBm m6DyTHsokzLhNXVdeVEbTB dpdGggdGhlIHBhdGllbnRc F1J7zeTfBV0oOWExXIEqS8 RzIQGjL21tGZAvvK2tFANu VO3zFQZfkj3vrdazzRGpdL YsBH7gUPEnihXlo7XxJA9o DD52iMKyrCigRVmtCTscl9 gecIQlt00yiCC7pAEonQNm P87mNKCejzSiJ3uqOxVqVb KbPV7nZGBgODqyHDkotqa4 zRGwyGCepRP1VTNylF9ppZ 31gyMhfoNKAN1jcWkwDNar pE1rPTAgPSymDKAxJ9GlfX 2yJY4JCkgpIXPsQGZEW6Wc I68zyZTywK== MICROSCOPIC DESCRIPTION o4kraJWgAYHmaWJ5WmHuOV (test code = 3371) Thk7vqj6IwxIEmiTDtPFfr pRKnqsQhxb76jLH0xA19JU 6dIFFhRcN3LOByakZ7Zuc4 TVVqMTDxkTRiS523r8veh7 ahhgIrcAS3sXhyHFMpAWUi OPuaINLvOoScPVZWDk7UDK VEXHBhcn0= SPECIAL STUDIES (test b4bkwVBjVFMcpQP7MbSpMO code = 3376) Xfa4jhf5IzwNYygWCwRPtx yIGujuLktt48vGS7yW92AN 9mAAEcSeY0TLCgnqF8Tzt5 PFGtZOHdgPMsC991WKIcWN RcmNewsww7yS37WFKmiJ1u zBIdJUi1YMHzutNknTvgpW 6oMjSkFjYnWqELrFNcoK85 SWVoefN0OJDyu70pa0ZqvW pejaJgWRIhGIviT5l2SUJa ILCzAQM6a8Mge3VsaW0iyI 8ueJoogQ1fqFAiiLD5eycd s0Nhy6QaS8votMBrtYFexs HgQLZbeoZAKT8NAgPVAX0f L9GSDPFFQxqoGrKgPDlpBN RZJDdIUVSWIKZ7RWKTHFVq ZTZVAFxiEOHdJ08mbDWxzZ BTbGlkZXMgRXhhbWluZWQ6 GBYZjw3kz6WeDYIgxy09ze Axo2FpvLi8FNYhh354er8e nzB6KGVnAGY4QMp0TEBpWQ RmcG9tXfZ7tGGlYGMlKXO0 IXN5AUGol1X4BK2uQBBsVU ZiGBRtmdJbv4ptx6laFENh LCP3leWzrV3dX2ToYASof5 YgdGhlIHBhdGllbnRzIHNh aZXrGMDllL27KSNxrUOlcE HgDXArAKH0HEkcvE1fUhDL szPpuh8udGVzm4SugCh9NN CpzpOxuqJkRIFxpxDlX18p hRWtnJDdj4upvhSaetPidH KgcGYmGNPwSSE1VUg1TMMi WZjpRHEcVScgMIEuTX7vxW 6xjFulcH9pkPUhwYZ8hkfa fXOvdY0kX6UqUEQml1Tlgs zef5KtQSVspoUdbf0uTWDu cFGJMTxom5RoM7WeARb4v3 NrwMfhZYgaQFt2KaDvLBKa tUEbzAQZAB81FXRuABDvaW xfqI3toLBBSWUhwtA3b7V1 OHadVZDgHYd9IQyjafPdQN LkqM0iWADrCS7eCHd2huEm PXSzy4XrSP7rXILlkPSiQI V0RHQrs1QqU0Qxg4FfTNTj MBPyyx3xxcFfPqRXrLUsIC Ruet92CQKsKB3tV4dyVCXu CBPkamMdgXHmh3NsXKOtgM W1sJDsUD8XBpONn36lHEJd KQUVjdUgQWRtwDqwfCG9ve I3gH5xHpXGtIBjZiCSTMdi rfKgDONlik8cufQhCVGoRX Ity4QvyCLadPJlwgFyA0Zy t1VqZCFvax85UUvzxHNvnz 84PH7bH2Ccj0TgwQ2tRCpt DNMpe8ZgeYAwwPAvYMRxz6 ImS5rseexiVQkudONzzN0f PXMtCVw5UQBbm1RxSEFrb1 QgYmUgcmVnYXJkZWQgYXMg vV45JIL8rHbczTskysYjEU 2aXPInsvFeSZXsCOEcvD0u YPuscxRlTFZiviO9r8T5NN yqPMOxnxSzWodhEPG7onLh jeT7sBJeP5pbrwywALlyXH Mkk4AnmP3uaVWMlLBnl5Rh wAFnhHRMvBEwPI0netNtRC 4pSHM3KCtlQOTACDNoBMuj AGXvXVP9UEuoEfutXRI6md DqVURtn3KnVYpcL6wyR94n kGrlbEa4fYIstEetgEEnjC FoVJGphmO3g2R5QJFov8Yh bmcuXHBhcn0= Gross assessment was [facility] performed at ([facility], = 2777) Department of Pathology, [address] [place] [address], Technical component was [facility] performed at ([facility], = 2772) Department of Pathology, [address] [place], [place] [id number], Professional component [facility] was performed at ([facility], code = 2779) Department of Pathology, [address] [place] [address], [facility] [id number] 10:56:00Surgical Pathology Report Case: [id number] Authorizing Provider: Vandana Tejada MD Collected: 08/31/2020 06:37 PM Ordering Location: [address] Received: 09/01/2020 08:13 AM Service Pathologist: [...] REPORT TO FOLLOW. Signing Pathologist Direct PhoneLine: [phone] signed by Thien Radford MD on 09/01/2020 at 3:59 [id number], [id number] groin cyst/iliopsoas mass, 6.3 x 6.1 x [...] evaluated Immunohistochemistry technical testing was [place] [facility] where it was developed and [...] to perform high complexity clinical la boratory testing.[facility] [place], [address] [place] [address], [facility], [address] [place] [address], [facility] of [facility], [address] [place] [address], YC, CHEST, WITH CONTRAST 2020-09-05 14:16:00Unlisted Reason for Exam - Click Yes and Enter Reason Below- >YesUnlisted 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 on09/05/2020 02:16 PMCT chest with IV [id number] 14:16:00Interface, External Ris In - 09/05/2020 2:18 [...] Smith Verified Date/Time: 09/05/2020 14:16:01 Reading Location: [address] [facility]-09-05 [...] Smith Verified Date/Time: 09/05/2020 14:16:01 Reading Location: [facility] C013Y CT [facility] 2020-09-05 [...] Smith Verified Date/Time: 09/05/2020 14:16:01 Reading Location: [facility] B1 C013Y CT [facility] W/Doppler(CW/PW/Color) 2020-09-05 09:47:35 Test Item Value Reference Range Interpretation Comments Ejection Fraction Est EF is 55-60% (test code = 2574) PXN (test code = Interface, External Ris In PXN) - 09/05/2020 9:47 AM CDTTransthoracic Echocardiography Report (TTE) Demographics Patient Name DANIEL DEL VALLE Date of Study 09/05/2020 NEELAM Gender Female Visit Number [id number] Race Unknown Room Number 2146 Number Date of 1960 Referring Physician Vandana Tejada MD Age 60 year(s) [employer] Be Interpreting Eduardo Roberts MD Fellow [...] LVEDV Bernard's:120.15 ml LVESV Bernard's:72.68 ml LVEF Brenard's: 60 % LVEDVI: 50 ml/m^2 LVESVI: 30 [...] Velocity: 2.81 m/s TR Gradient: 31.62 mmHg [facility] W/Doppler(CW/PW/Color)2020-09-05 09:47:35 Test Item Value Reference Range Interpretation Comments Ejection Fraction Est EF is 55-60% (test code = 2574) PXN (test code = Interface, External Ris In PXN) - 09/05/2020 9:47 AM CDTTransthoracic Echocardiography Report (TTE) Demographics Patient Name DANIEL DEL VALLE Date of Study 09/05/2020 NEELAM Gender Female Visit Number [id number] Race Unknown Room Number 2146 Number Date of 1960 Referring Physician Vandana Tejada MD Age 60 year(s) [employer] Be Interpreting Eduardo Roberts MD Fellow [...] Velocity: 2.81 m/s TR Gradient: 31.62 mmHg [facility] W/Doppler(CW/PW/Color)2020-09-05 09:47:35 Test Item Value Reference Range Interpretation Comments Ejection Fraction Est EF is 55-60% (test code = 2574) PXN (test code = Interface, External Ris In PXN) - 09/05/2020 9:47 AM CDTTransthoracic Echocardiography Report (TTE) Demographics Patient Name DANIEL DEL VALLE Date of Study 09/05/2020 NEELAM Gender Female Visit Number [id number] Race Unknown Room Number 2146 Number Date of 1960 Referring Physician Vandana Tejada MD Age 60 year(s) [employer] Be Interpreting Eduardo Roberts MD Fellow [...] Velocity: 2.81 m/s TR Gradient: 31.62 mmHg [facility]Com[facility] [id number] 07:34:00 Test Item Value Reference Range Interpretation Comments Protein, Total (test 7.5 See_Comment [Autom ated code = 2885-2) message] The system which generated this result transmit yumiko reference range : 6.0 - 8.3 gm/dL . The reference range was not u sed to interpret th is result as normal/abnormal . Albumin (test code = 3.6 g/dL 3.5-5 51912-5) Alkaline Phosphatase 106 U/L 40-150 (test code = 6768-6) Total Bilirubin (test 0.2 mg/dL 0.2-1.2 code = 1974-2) Sodium (test code = 139 meq/L 298-716 9336-2) Potassium (test code 4.7 meq/L 3.5-5.1 = 2823-3) Chloride (test code = 104 meq/L 98-107 5-0) CO2 (test code = 25 meq/L -29 2027-9) BUN (test code = 10 mg/dL 7- 3094-0) Creatinine (test code 0.70 mg/dL 0.57-1.25 = 2160-0) Glucose (test code = 159 mg/dL 70-105 H 2345-7) Calcium (test code = 8.8 mg/dL 8.4-10.2 79006-1) AST (test code = 9 U/L 5-34 1920-8) ALT (test code = 13 U/L 6-55 1742-6) EGFR (test code = 103 mL/min/1.73 [place] [address]-8) NOT ACCURATE CREATININE CLEARANCE IN PREDICTING GLOMERULAR FILTRATION RATE . ESTIMATED GFR I S NOT APPLICABLE FOR DIALYSIS PATIEN TS. JESSICA (test code = JESSICA) Campus Administrative Assistant ID - BALA M Lab Interpretation Abnormal (test code = 95418-7) [facility] [id number] 07:34:00 Test Item Value Reference Range Interpretation Comments Protein, Total (test 7.5 See_Comment [Autom ated code = 2885-2) message] The system which generated this result transmit yumiko reference range : 6.0 - 8.3 gm/dL . The reference range was not u sed to interpret th is result as normal/abnormal . Albumin (test code = 3.6 g/dL 3.5-5 02906-7) Alkaline Phosphatase 106 U/L 40-150 (test code = 6768-6) Total Bilirubin (test 0.2 mg/dL 0.2-1.2 code = 1974-2) Sodium (test code = 139 meq/L 576-887 1071-2) Potassium (test code 4.7 meq/L 3.5-5.1 = 2823-3) Chloride (test code = 104 meq/L 98-107 2075-0) CO2 (test code = 25 meq/L 22-29 2028-9) BUN (test code = 10 mg/dL 7-21 3094-0) Creatinine (test code 0.70 mg/dL 0.57-1.25 = 2160-0) Glucose (test code = 159 mg/dL 70-105 H 2345-7) Calcium (test code = 8.8 mg/dL 8.4-10.2 77872-4) AST (test code = 9 U/L 5-34 1920-8) ALT (test code = 13 U/L 6-55 1742-6) EGFR (test code = 103 mL/min/1.73 [place] [address]-2) NOT ACCURATE CREATININE CLEARANCE IN PREDICTING GLOMERULAR FILTRATION RATE . ESTIMATED GFR I S NOT APPLICABLE FOR DIALYSIS PATIEN TS. JESSICA (test code = JESSICA) Campus Administrative Assistant ID - BALA Mary Lab Interpretation Abnormal (test code = 87972-6) [facility] [id number] 07:34:00 Test Item Value Reference Range Interpretation Comments Protein, Total (test 7.5 See_Comment [Autom ated code = 2885-2) message] The system which generated this result transmit yumiko reference range : 6.0 - 8.3 gm/dL . The reference range was not u sed to interpret th is result as normal/abnormal . Albumin (test code = 3.6 g/dL 3.5-5 71909-6) Alkaline Phosphatase 106 U/L 40-150 (test code = 6768-6) Total Bilirubin (test 0.2 mg/dL 0.2-1.2 code = 1974-2) Sodium (test code = 139 meq/L 370-645 1343-2) Potassium (test code 4.7 meq/L 3.5-5.1 = 2823-3) Chloride (test code = 104 meq/L 98-107 2075-0) CO2 (test code = 25 meq/L 22-29 2028-9) BUN (test code = 10 mg/dL 7-21 3094-0) Creatinine (test code 0.70 mg/dL 0.57-1.25 = 2160-0) Glucose (test code = 159 mg/dL 70-105 H 2345-7) Calcium (test code = 8.8 mg/dL 8.4-10.2 40858-3) AST (test code = 9 U/L 5-34 1920-8) ALT (test code = 13 U/L 6-55 1742-6) EGFR (test code = 103 mL/min/1.73 [place] [address]-8) NOT ACCURATE CREATININE CLEARANCE IN PREDICTING GLOMERULAR FILTRATION RATE . ESTIMATED GFR I S NOT APPLICABLE FOR DIALYSIS PATIEN TS. JESSICA (test code = JESSICA) Campus Administrative Assistant ID - BALA M Lab Interpretation Abnormal (test code = 88344-5) [facility] [id number] 07:34:00 Test Item Value Reference Range Interpretation [...] S NOT APPLICABLE FOR DIALYSIS PATIEN TS. Campus Administrative Assistant ID - BALA MSARS-CoV2/RT-PCR (Asymptomatic ONLY)2020-09-04 12:52:00 Test Item Value Reference Range Interpretation Comments SARS-COV2/RT-PCR Negative Not Detected, (test code = Negative, See 28335-8) external report for linked test SARS-COV-2 [facility] (test code = 27490-3) JESSICA (test code = Negative result for [...] of the Act. Fact Sheet for Healthcare Providers:https://www.[employer]/sites/default/f nito/product/documents/F act_Sheet_HC_Providers_L dxh_TVMZ-FiM-3.pdf Fact Sheet for Healthcare Patients:https://www.[employer]/sites/default/fi les/product/documents/Fa ct_Sheet_Patients_Lyra_S ARS-CoV-2.pdf [place] [place] [place] [address] [facility]omatic [facility]2020-09-04 12:52:00 Test Item Value Reference Range Interpretation Comments SARS-COV2/RT-PCR Negative Not Detected, (test code = Negative, See 87595-8) external report for linked test SARS-COV-2 [facility] (test code = 37618-0) JESSICA (test code = Negative result for [...] of the Act. Fact Sheet for Healthcare Providers:https://www.[employer]/sites/default/f nito/product/documents/F act_Sheet_HC_Providers_L ozk_IBYQ-IaZ-9.pdf Fact Sheet for Healthcare Patients:https://www.[employer]/sites/default/fi les/product/documents/Fa ct_Sheet_Patients_Lyra_S ARS-CoV-2.pdf Performing [place] [place] [place] [address] [facility] (Asymptomatic ONLY)2020-09-04 12:52:00 Test Item Value Reference Range Interpretation Comments SARS-COV2/RT-PCR Negative Not Detected, (test code = Negative, See 73569-8) external report for linked test SARS-COV-2 [facility] (test code = 67392-7) JESSICA (test code = Negative result for [...] of the Act. Fact Sheet for Healthcare Providers:https://www.[employer]/sites/default/f nito/product/documents/F act_Sheet_HC_Providers_L bdc_QVIE-XeA-2.pdf Fact Sheet for Healthcare Patients:https://www.[employer]/sites/default/fi les/product/documents/Fa ct_Sheet_Patients_Lyra_S ARS-CoV-2.pdf Performing [place] [place] [place] [address] [facility])2020-09-04 12:52:00 Test Item Value Reference Range Interpretation Comments SARS-COV2/RT-PCR (test Negative Not Detected, Negative, code = 2654460) See external report for linked test SARS-COV-2 PERFORMING [facility] (test code = 7256752) Negative result for this test determines that [...] 564(g) of the Act.Fact Sheet for Healthcare Providers:https://www.[employer]idel.com/sites/default/files/product/documents/Fact_Shee a_JD_Bhmyhntmk_Hegq_RYIZ-TjL-6.pdfFact Sheet for Healthcare Patients:https://www.[employer].com/sites/default/files/product/ documents/Lspm_Fjwxp_Kezcdube_Bgrb_PKBB-QqJ-7.pdfPerforming Laboratory:[facility] [place], [place] [address] with platelet count + automated [id number] 06:38:00 Test Item Value Reference Range Interpretation Comments WBC (test code = 6690-2) 11.4 See_Comment H [A utomated message] The system [employer] generated this result transmitted ref erence range: 3.5 - 10 .5 K/L. The refe rence range was not u sed to interpret this result as normal/abnor mal. RBC (test code = 789-8) 4.35 See_Comment [Au tomated message] The system [employer] generated this result transmitted ref erence range: 3.93 - 5 .22 M/L. The refe rence range was not u sed to interpret this result as normal/abnor mal. MCHC (test code = 786-4) 28.0 See_Comment L [A utomated message] The system [employer] generated this result transmitted ref erence range: [...] See_Comment [Aut omated message] 777-3) The system [employer] generated this result transmitted ref erence range: 150 - 45 0 K/CU MM. The referen ce range was not u sed to interpret this result as normal/abnor mal. MPV (test code = 9.0 fL 9.4-12.3 L 52815-1) nRBC (test code = 413) 0 See_Comment [Aut omated message] The system [employer] generated this result transmitted ref erence range: [...] H [Aut omated message] 670) The system [employer] generated this result transmitted ref erence range: 1.56 - 6 .13 K/L. The refe rence range was not u sed to interpret this result as normal/abnor mal. # Lymphs (test code = 2.06 See_Comment [Auto mated message] 414) The system [employer] generated this result transmitted ref erence range: 1.18 - 3 .74 K/L. The refe rence range was not u sed to interpret this result as normal/abnor mal. # Monos (test code = 0.95 See_Comment H [Autom ated message] 415) The system [employer] generated this result transmitted ref erence range: 0.24 - 0 .36 K/L. The refe rence range was not u sed to interpret this result as normal/abnor mal. # Eos (test code = 416) 0.46 See_Comment H [Au tomated message] The system [employer] generated this result transmitted ref erence range: 0.04 - 0 .36 K/L. The refe rence range was not u sed to interpret this result as normal/abnor mal. # Baso (test code = 417) 0.03 See_Comment [A utomated message] The system [employer] generated this result transmitted ref erence range: 0.01 - 0 .08 K/L. The refe rence range was not u sed to interpret this result as normal/abnor mal. Immature 1 % 0-1 Granulocytes-Relative (test code = 2801) Lab Interpretation (test Abnormal code = 97735-7) [facility] with platelet count + automated [id number] 06:38:00 Test Item Value Reference Range Interpretation Comments WBC (test code = 6690-2) 11.4 See_Comment H [A utomated message] The system [employer] generated this result transmitted ref erence range: 3.5 - 10 .5 K/L. The refe rence range was not u sed to interpret this result as normal/abnor mal. RBC (test code = 789-8) 4.35 See_Comment [Au tomated message] The system [employer] generated this result transmitted ref erence range: 3.93 - 5 .22 M/L. The refe rence range was not u sed to interpret this result as normal/abnor mal. MCHC (test code = 786-4) 28.0 See_Comment L [A utomated message] The system [employer] generated this result transmitted ref erence range: [...] See_Comment [Aut omated message] 777-3) The system [employer] generated this result transmitted ref erence range: 150 - 45 0 K/CU MM. The referen ce range was not u sed to interpret this result as normal/abnor mal. MPV (test code = 9.0 fL 9.4-12.3 L 68786-4) nRBC (test code = 413) 0 See_Comment [Aut omated message] The system [employer] generated this result transmitted ref erence range: [...] H [Aut omated message] 670) The system [employer] generated this result transmitted ref erence range: 1.56 - 6 .13 K/L. The refe rence range was not u sed to interpret this result as normal/abnor mal. # Lymphs (test code = 2.06 See_Comment [Auto mated message] 414) The system [employer] generated this result transmitted ref erence range: 1.18 - 3 .74 K/L. The refe rence range was not u sed to interpret this result as normal/abnor mal. # Monos (test code = 0.95 See_Comment H [Autom ated message] 415) The system [employer] generated this result transmitted ref erence range: 0.24 - 0 .36 K/L. The refe rence range was not u sed to interpret this result as normal/abnor mal. # Eos (test code = 416) 0.46 See_Comment H [Au tomated message] The system [employer] generated this result transmitted ref erence range: 0.04 - 0 .36 K/L. The refe rence range was not u sed to interpret this result as normal/abnor mal. # Baso (test code = 417) 0.03 See_Comment [A utomated message] The system [employer] generated this result transmitted ref erence range: 0.01 - 0 .08 K/L. The refe rence range was not u sed to interpret this result as normal/abnor mal. Immature 1 % 0-1 Granulocytes-Relative (test code = 2801) Lab Interpretation (test Abnormal code = 17174-4) [facility] with platelet count + automated [id number] 06:38:00 Test Item Value Reference Range Interpretation Comments WBC (test code = 6690-2) 11.4 See_Comment H [A utomated message] The system [employer] generated this result transmitted ref erence range: 3.5 - 10 .5 K/L. The refe rence range was not u sed to interpret this result as normal/abnor mal. RBC (test code = 789-8) 4.35 See_Comment [Au tomated message] The system [employer] generated this result transmitted ref erence range: 3.93 - 5 .22 M/L. The refe rence range was not u sed to interpret this result as normal/abnor mal. MCHC (test code = 786-4) 28.0 See_Comment L [A utomated message] The system [employer] generated this result transmitted ref erence range: [...] See_Comment [Aut omated message] 777-3) The system [employer] generated this result transmitted ref erence range: 150 - 45 0 K/CU MM. The referen ce range was not u sed to interpret this result as normal/abnor mal. MPV (test code = 9.0 fL 9.4-12.3 L 94875-7) nRBC (test code = 413) 0 See_Comment [Aut omated message] The system [employer] generated this result transmitted ref erence range: [...] H [Aut omated message] 670) The system [employer] generated this result transmitted ref erence range: 1.56 - 6 .13 K/L. The refe rence range was not u sed to interpret this result as normal/abnor mal. # Lymphs (test code = 2.06 See_Comment [Auto mated message] 414) The system [employer] generated this result transmitted ref erence range: 1.18 - 3 .74 K/L. The refe rence range was not u sed to interpret this result as normal/abnor mal. # Monos (test code = 0.95 See_Comment H [Autom ated message] 415) The system [employer] generated this result transmitted ref erence range: 0.24 - 0 .36 K/L. The refe rence range was not u sed to interpret this result as normal/abnor mal. # Eos (test code = 416) 0.46 See_Comment H [Au tomated message] The system [employer] generated this result transmitted ref erence range: 0.04 - 0 .36 K/L. The refe rence range was not u sed to interpret this result as normal/abnor mal. # Baso (test code = 417) 0.03 See_Comment [A utomated message] The system [employer] generated this result transmitted ref erence range: 0.01 - 0 .08 K/L. The refe rence range was not u sed to interpret this result as normal/abnor mal. Immature 1 % 0-1 Granulocytes-Relative (test code = 2801) Lab Interpretation (test Abnormal code = 06708-6) [facility] W/PLT COUNT & AUTO [id number] 06:38:00 Test Item Value Reference Range Interpretation [...] PERCENT (BEAKER) (test code = 2801) Prothrombin time/[id number] 05:07:00 Test Item Value Reference Interpretation Comments [...] valves. Lab Interpretation Abnormal (test code = 45725-8) [facility]/[id number] 05:07:00 Test Item Value Reference Interpretation Comments [...] valves. Lab Interpretation Abnormal (test code = 53726-6) [facility]/[id number] 05:07:00 Test Item Value Reference Interpretation Comments [...] valves. Lab Interpretation Abnormal (test code = 11826-5) [facility]OM[facility]/[id number] 05:07:00 Test Item Value Reference Range Interpretation Comments PROTIME (BEAKER) 19.2 seconds 11.9-14.2 H (test code = 759) INR (BEAKER) (test 1.64 See_Comment [Automat ed message] code = 370) The system [employer] generated this result transmitted ref erence range: [...] See_Comment H [A utomated message] The system [employer] generated this result transmitted ref erence range: 3.5 - 10 .5 K/L. The refe rence range was not u sed to interpret this result as normal/abnor mal. RBC (test code = 789-8) 4.36 See_Comment [Au tomated message] The system [employer] generated this result transmitted ref erence range: 3.93 - 5 .22 M/L. The refe rence range was not u sed to interpret this result as normal/abnor mal. MCHC (test code = 786-4) 28.6 See_Comment L [A utomated message] The system [employer] generated this result transmitted ref erence range: [...] See_Comment [Aut omated message] 777-3) The system [employer] generated this result transmitted ref erence range: 150 - 45 0 K/CU MM. The referen ce range was not u sed to interpret this result as normal/abnor mal. MPV (test code = 8.9 fL 9.4-12.3 L 70838-9) nRBC (test code = 413) 0 See_Comment [Aut omated message] The system [employer] generated this result transmitted ref erence range: 0 - 0 /1 00 WBC. The refere nce range was not u sed to interpret this result as normal/abnor mal. Lab Interpretation (test Abnormal code = 65886-2) [facility] (Hemogram only)2020-09-02 04:59:00 Test Item Value Reference Range Interpretation Comments WBC (test code = 6690-2) 10.9 See_Comment H [A utomated message] The system [employer] generated this result transmitted ref erence range: 3.5 - 10 .5 K/L. The refe rence range was not u sed to interpret this result as normal/abnor mal. RBC (test code = 789-8) 4.36 See_Comment [Au tomated message] The system [employer] generated this result transmitted ref erence range: 3.93 - 5 .22 M/L. The refe rence range was not u sed to interpret this result as normal/abnor mal. MCHC (test code = 786-4) 28.6 See_Comment L [A utomated message] The system [employer] generated this result transmitted ref erence range: [...] See_Comment [Aut omated message] 777-3) The system [employer] generated this result transmitted ref erence range: 150 - 45 0 K/CU MM. The referen ce range was not u sed to interpret this result as normal/abnor mal. MPV (test code = 8.9 fL 9.4-12.3 L 33761-4) nRBC (test code = 413) 0 See_Comment [Aut omated message] The system [employer] generated this result transmitted ref erence range: 0 - 0 /1 00 WBC. The refere nce range was not u sed to interpret this result as normal/abnor mal. Lab Interpretation (test Abnormal code = 41398-3) [facility] (Hemogram only)2020-09-02 04:59:00 Test Item Value Reference Range Interpretation Comments WBC (test code = 6690-2) 10.9 See_Comment H [A utomated message] The system [employer] generated this result transmitted ref erence range: 3.5 - 10 .5 K/L. The refe rence range was not u sed to interpret this result as normal/abnor mal. RBC (test code = 789-8) 4.36 See_Comment [Au tomated message] The system [employer] generated this result transmitted ref erence range: 3.93 - 5 .22 M/L. The refe rence range was not u sed to interpret this result as normal/abnor mal. MCHC (test code = 786-4) 28.6 See_Comment L [A utomated message] The system [employer] generated this result transmitted ref erence range: [...] See_Comment [Aut omated message] 777-3) The system [employer] generated this result transmitted ref erence range: 150 - 45 0 K/CU MM. The referen ce range was not u sed to interpret this result as normal/abnor mal. MPV (test code = 8.9 fL 9.4-12.3 L 63824-4) nRBC (test code = 413) 0 See_Comment [Aut omated message] The system [employer] generated this result transmitted ref erence range: 0 - 0 /1 00 WBC. The refere nce range was not u sed to interpret this result as normal/abnor mal. Lab Interpretation (test Abnormal code = 07778-4) [facility] (HEMOGRAM ONLY)2020-09-02 04:59:00 Test Item [...] (BEAKER) (test code = 413) U/S, CORE [id number] 08:58:00Reason for exam:->BIOPSY LEFT ILIOPSOAS MASS US VS CT GUIDED [facility] : 1960 Sex: FFINAL REPORT Procedure: Ultrasound-Guided left iliopsoas/inguinal mass core biopsy Pre/post-procedure diagnosis: Left iliopsoas/inguinal mass [employer]: Abdirahman Chopra MD Assistants: none Sedation: Moderate [...] MDReport Verified Date/Time: 09/01/2020 08:58:59 Reading Location: [facility] Diagnostic Imaging Reading Room - [facility] 1.310.12 US Core [id number] 08:58:00Interface, External Ris In - 09/01/2020 9:01 AM CDTFINAL REPORT Procedure: Ultrasound-Guided left iliopsoas/inguinal mass core biopsy Pre/post-procedure diagnosis: Left iliopsoas /inguinal mass [employer]: Abdirahman Chopra MD Assistants: none Sedation: Moderate [...] MDReport Verified Date/Time: 09/01/2020 08:58:59 Reading Location: [facility] Diagnostic Imaging Reading Room [place] [address] 1.310.12 [facility] 2020-09-01 08:58:00Interface, External Ris In - 09/01/2020 9:01 AM CDTFINAL REPORT Procedure: Ultrasound-Guided left iliopsoas/inguinal mass core biopsy Pre/post-procedure diagnosis: Left iliopsoas /inguinal mass [employer]: Abdirahman Chopra MD Assistants: none Sedation: Moderate [...] MDReport Verified Date/Time: 09/01/2020 08:58:59 Reading Location: [facility] Diagnostic Imaging Reading Room - [facility] 1.310.12 [facility] 2020-09-01 08:58:00Interface, External Ris In - 09/01/2020 9:01 AM CDTFINAL REPORT Procedure: Ultrasound-Guided left iliopsoas/inguinal mass core biopsy Pre/post-procedure diagnosis: Left iliopsoas /inguinal mass [employer]: Abdirahman Chopra MD Assistants: none Sedation: Moderate [...] biopsy as detailed above. Signed: Abdirahman Chopra Verified Date/Time: 09/01/2020 08:58:59 Reading Location: [facility] Diagnostic Imaging Reading Room [place] [address] 1.310.12 [facility] (HEMOGRAM ONLY)2020-09-01 05:07:00 Test Item Value Reference [...] 0-0 (BEAKER) (test code = 413) PROTHROMBIN TIME/[id number] 04:44:00 Test Item Value Reference Range Interpretation Comments PROTIME (BEAKER) 19.1 seconds 11.9-14.2 H (test code = 759) INR (BEAKER) (test 1.63 See_Comment [Automat ed message] code = 370) The system [employer] generated this result transmitted ref erence range: <=5.90. The reference range was not used to int erpret this result as normal/abnormal . RECOMMENDED COUMADIN/WARFARIN INR THERAPY RANGESSTANDARD DOSE: 2.0 - 3.0 Includes: PROPHYLAXIS forvenous thrombosis, systemic embolization; TREATMENT for venous thrombosis and/or pulmonary embolus.HIGH RISK: Target INR is 2.5-3.5 for patients with mechanical heart valves.Vitamin B12 and [id number] 06:16:00 Test Item Value Reference Range Interpretation Comments Vitamin B12 (test 327 pg/mL 213-816 code = 2132-9) Folate (test code = 3.70 ng/mL See_Comment L [Automa yumiko 2284-8) message] The system which generated this result transmit yumiko reference range : >=7.00. The reference range was not used to interpret this result as normal/abnormal . JESSICA (test code = JESSICA) Campus Administrative Assistant ID - BALA M Lab Interpretation Abnormal (test code = 22225-0) [facility] [id number] 06:16:00 Test Item Value Reference Range Interpretation Comments Vitamin B12 (test 327 pg/mL 213-816 code = 2132-9) Folate (test code = 3.70 ng/mL See_Comment L [Automa yumiko 2284-8) message] The system which generated this result transmit yumiko reference range : >=7.00. The reference range was not used to interpret this result as normal/abnormal . JESSICA (test code = JESSICA) Campus Administrative Assistant ID - BALA M Lab Interpretation Abnormal (test code = 36340-5) [facility] [id number] 06:16:00 Test Item Value Reference Range Interpretation Comments Vitamin B12 (test 327 pg/mL 213-816 code = 2132-9) Folate (test code = 3.70 ng/mL See_Comment L [Automa yumiko 2284-8) message] The system which generated this result transmit yumiko reference range : >=7.00. The reference range was not used to interpret this result as normal/abnormal . JESSICA (test code = JESSICA) Campus Administrative Assistant ID - BALA M Lab Interpretation Abnormal (test code = 13739-1) [facility] AND [id number] 06:16:00 Test Item Value Reference Range Interpretation Comments VITAMIN B12 (BEAKER) 327 pg/mL 213-816 (test code = 774) FOLATE (BEAKER) 3.70 ng/mL See_Comment L [Automated message] (test code = 362) The system which generated this result transmitted ref erence range: >=7.00. The reference range was not used to interpr et this result as normal/abnormal . Campus Administrative Assistant ID - BALA MPROTHROMBIN TIME/[id number] 05:36:00 Test Item Value Reference Range Interpretation Comments PROTIME (BEAKER) 21.8 seconds 11.9-14.2 H (test code = 759) INR (BEAKER) (test 1.92 See_Comment [Automat ed message] code = 370) The system whic h generated this result transmitted ref erence [...] 0-0 (BEAKER) (test code = 413) CT, [id number] 11:32:00Unlisted Reason for Exam - Click Yes and Enter Reason Below->NoWill this procedure require oral contrast?->No [facility] 1960 Sex: [...] size and patent. Right lower extremity: The [employer], DFA, SFA, and popliteal arteries are patent. Trifurcation vessels are patent. Left lower extremity: The [employer], DFA, SFA, and popliteal arteries are patent. [...] No evidence remote metastatic disease. Signed: Kale Jayort Verified Date/Time: 08/30/2020 11:32:07 Reading Location: [facility] B1 P048 Angio Body Reading Room CT, [...] size and patent. Right lower extremity: The [employer]EST [employer]ER, DFA, SFA, and popliteal arteries are patent. Trifurcation vessels are patent. Left lower extremity: The [employer]ER, DFA, SFA, and popliteal arteries are patent. [...] MDReport Verified Date/Time: 08/30/2020 11:32:07 Reading Location: [place] [address] Angio Body Reading Room CT abdomen/pelvis with [...] size and patent. Right lower extremity: The [employer] OFF[employer]ER, DFA, SFA, and popliteal arteries are patent. Trifurcation vessels are patent. Left lower extremity: The [employer]EST [employer]ER, DFA, SFA, and popliteal arteries are patent. [...] edema.No evidence remote metastatic disease. Signed: Kale Jayort Verified Date/Time: 08/30/2020 11:32:07 Reading Location: [place] [address] Angio Body Reading Room [facility] and [id number] 11:32:00Interface, External Ris In - 08/30/2020 11:34 [...] size and patent. Right lower extremity: The [employer]ER, DFA, SFA, and popliteal arteries are patent. Trifurcation vessels are patent. Left lower extremity: The [employer]EST [employer] OFFICER, DFA, SFA, and popliteal arteries are patent. [...] Jayeport Verified Date/Time: 08/30/2020 11:32:07 Reading Location: [facility] B1 P048 Angio Body [facility] [id number] 11:32:00Interface, External Ris In - 08/30/2020 11:34 [...] size and patent. Right lower extremity: The [employer]ER, DFA, SFA, and popliteal arteries are patent. Trifurcation vessels are patent. Left lower extremity: The [employer]EST [employer] OFFICER, DFA, SFA, and popliteal arteries are patent. [...] MDReport Verified Date/Time: 08/30/2020 11:32:07 Reading Location: [facility] P048 Angio Body Reading Room [facility] and [id number] 11:32:00Interface, External Ris In - 08/30/2020 11:34 [...] size and patent. Right lower extremity: The [employer]ER, DFA, SFA, and popliteal arteries are patent. Trifurcation vessels are patent. Left lower extremity: The [employer]EST [employer] OFFICER, DFA, SFA, and popliteal arteries are patent. [...] MDReport Verified Date/Time: 08/30/2020 11:32:07 Reading Location: [facility] P048 Angio Body Reading Room [facility]vis with IV [id number] 11:32:00Interface, External Ris In - 08/30/2020 11:34 [...] size and patent. Right lower extremity: The [employer] OFFICER, DFA, SFA, and popliteal arteries are patent. Trifurcation vessels are patent. Left lower extremity: The FOREST [employer] OFFICER, DFA, SFA, and popliteal arteries are patent. [...] MDReport Verified Date/Time: 08/30/2020 11:32:07 Reading Location: [place] [address] Angio Body Reading Room [facility] and [id number] 11:32:00Interface, External Ris In - 08/30/2020 11:34 [...] size and patent. Right lower extremity: The [employer]EST [employer] OFFICER, DFA, SFA, and popliteal arteries are patent. Trifurcation vessels are patent. Left lower extremity: The [employer]EST [employer] OFFICER, DFA, SFA, and popliteal arteries are patent. [...] MDReport Verified Date/Time: 08/30/2020 11:32:07 Reading Location: [facility] P048 Angio Body Reading Room [facility] CenterArterial doppler leg, [id number] 09:31:54Ejection FractionSLEH ECHO HEARTLAB MKCKESSON CPA Left Impression1. The [...] +--- + + + + + !Dist Roselinei teal ! !75.5 ! ! ! + + + + + + !Mid WOOD PLANER ! !59.4 ! ! ! + + +-- + + + !Dist WOOD PLANER ! !61.6 ! ! ! + + [...] Study 08/29/2020 NEELAM Age 60 Visit Number [id number] Gender Female Accession Number [id number] Date of 1960 Referring [facility] Room Number 9616 Physician Richard Prime Broker Stacy Proctor Interpreting Vivek Benitez MD RVT [...] + + + + + + !Mid WOOD PLANER ! !59.4 ! ! ! + + + + + + !Dist WOOD PLANER ! !61.6 ! ! ! + + + ---------+ + + !Prox JANETTE ! !64.3 ! ! ! + + + +---- + + !Mid JANETTE ! !80.3 ! ! ! + + + + + + !Dist JANETTE ! !67.1 ! ! ! + + + + + +[facility], [id number] 09:31:54[facility]jection [facility] MKCKESSON [facility] Left Impression1. The common femoral, profunda fe [...] + + + + + + !Mid WOOD PLANER ! !59.4 ! ! ! + + +-- + + + !Dist WOOD PLANER ! !61.6 ! ! ! + + [...] Study 08/29/2020 NEELAM Age 60 Visit Number [id number] Gender Female Accession Number [id number] Date of 1960 [facility] Room Number 8646 Physician Richard Prime Broker Stacy Proctor Interpreting Vivek Benitez MD RVT [...] + + + + + + !Mid WOOD PLANER ! !59.4 ! ! ! + + + + + + !Dist WOOD PLANER ! !61.6 ! ! ! + + + ---------+ + + !Prox JANETTE ! !64.3 ! ! ! + + + +---- + + !Mid JANETTE ! !80.3 ! ! ! + + + + + + !Dist JANETTE ! !67.1 ! ! ! + + + + + +[facility], [id number] 09:31:54Ejection FractionSST. [facility] ECHO HEARTLAB MKCKESSON [facility] Left Impression1. The common femoral, profunda fe [...] + + + + + + !Mid WOOD PLANER ! !59.4 ! ! ! + + +-- + + + !Dist WOOD PLANER ! !61.6 ! ! ! + + [...] Study 08/29/2020 NEELAM Age 60 Visit Number [id number] Gender Female Accession Number [id number] Date of 1960 Referring [facility] Room Number 2546 Physician Richard Prime Broker Stacy Benitez MD RVT Physician ProcedureType of [...] + + + + + + !Mid WOOD PLANER ! !59.4 ! ! ! + + + + + + !Dist WOOD PLANER ! !61.6 ! ! ! + + + ---------+ + + !Prox JANETTE ! !64.3 ! ! ! + + + +---- + + !Mid JANETTE ! !80.3 ! ! ! + + + + + + !Dist JANETTE ! !67.1 ! ! ! + + + + + +[facility] CampusB[facility] and [id number] 06:17:00 Test Item Value Reference Range Interpretation [...] mL/min/1.73 [place] [address]-9) NOT ACCURATE CREATININE CLEARANCE IN PREDICTING GLOMERULAR FILTRATION RATE . ESTIMATED GFR I S NOT APPLICABLE FOR DIALYSIS PATIEN TS. JESSICA (test code = Campus Administrative Assistant ID - BS JESSICA) [facility] and [id number] 06:17:00 Test Item Value Reference Range Interpretation [...] mL/min/1.[place] [address]-6) NOT ACCURATE CREATININE CLEARANCE IN PREDICTING GLOMERULAR FILTRATION RATE . ESTIMATED GFR I S NOT APPLICABLE FOR DIALYSIS PATIEN TS. JESSICA (test code = Campus Administrative Assistant ID - BS JESSICA) [facility] and [id number] 06:17:00 Test Item Value Reference Range Interpretation [...] mL/min/1.73 [place] [address]-2) NOT ACCURATE CREATININE CLEARANCE IN PREDICTING GLOMERULAR FILTRATION RATE . ESTIMATED GFR I S NOT APPLICABLE FOR DIALYSIS PATIEN TS. JESSICA (test code = Campus Administrative Assistant ID - BS JESSICA) [facility] AND CREATININE [id number] 06:17:00 Test Item Value Reference Range Interpretation Comments BLOOD UREA NITROGEN 13 mg/dL 7-21 (BEAKER) (test code = 354) CREATININE (BEAKER) 0.72 mg/dL 0.57-1.25 (test code = 358) BUN/CREAT RATIO 18 For a normal (BEAKER) (test code individu al on a = 1308472306) normal diet, t he reference inter jewel for the mass ra nabil ranges between 12:1 and 20:1 (BUN i n mg/dL/creatinin e in mg/dL) EGFR (BEAKER) (test 100 mL/min/1.73 ESTIM ATED GFR IS code = 1092) sq m NOT ACCURATE CREATININE CLEARANCE IN PREDICTING GLOMERULAR FILTRATION RATE . ESTIMATED GFR I S NOT APPLICABLE FOR DIALYSIS PATIEN TS. Campus Administrative Assistant ID - BSCBC (HEMOGRAM ONLY)2020-08-30 05:50:00 Test [...] 0-0 (BEAKER) (test code = 413) PROTHROMBIN TIME/[id number] 05:48:00 Test Item Value Reference Range Interpretation Comments PROTIME (BEAKER) 21.5 seconds 11.9-14.2 H (test code = 759) INR (BEAKER) (test 1.89 See_Comment [Automat ed message] code = 370) The system [employer] generated this result transmitted ref erence range: [...] 1.0-2.0 units/mL once daily enoxaparin Ref: CHEST 2012;141:[id number] Lab Interpretation (test Normal code = 31442-1) [facility] HospitalHeparin Assay - Low Molecular [id number] 14:07:00 Test Item Value Reference Range Interpretation Comments Anti 10A-Lovenox (test 0.85 u/ml 0.6-2 code = 1605) JESSICA (test code = JESSICA) Anti-Factor 10-A Level (Heparin Assay for Low Molecular Weight Heparin)Monitoring Guidelines: Blood samples should be obtained 4 hours post subcutaneous injection (time of Peak level) Therapeutic Peak Levels: 0.6-1.0 units/mL twice daily enoxaparin 1.0-2.0 units/mL once daily enoxaparin Ref: CHEST 2012;141:[id number] Lab Interpretation (test Normal code = 34593-6) [facility] Hospital[facility] - Low Molecular [id number] 14:07:00 Test Item Value Reference Range Interpretation Comments Anti 10A-Lovenox (test 0.85 u/ml 0.6-2 code = 1605) JESSICA (test code = JESSICA) Anti-Factor 10-A Level (Heparin Assay for Low Molecular Weight Heparin)Monitoring Guidelines: Blood samples should be obtained 4 hours post subcutaneous injection (time of Peak level) Therapeutic Peak Levels: 0.6-1.0 units/mL twice daily enoxaparin 1.0-2.0 units/mL once daily enoxaparin Ref: CHEST 2012;141:[id number] Lab Interpretation (test Normal code = 91586-6) [facility] HospitalHEPARIN ASSAY - LOW MOLECULAR [id number] 14:07:00 Test Item Value Reference Range Interpretation Comments LOVENOX-ANTI 10A (BEAKER) (test 0.85 u/ml 0.60-2.00 code = 1605) Anti-Factor 10-A Level (Heparin Assay for Low Molecular Weight Heparin)Monitoring Guidelines: Blood samples should be obtained 4 hours post subcutaneous injection (time of Peak level) Therapeutic Peak Levels: 0.6-1.0 units/mL twice daily enoxaparin 1.0-2.0 units/mL once daily enoxaparinRef: CHEST 2012;141:[id number] (HEMOGRAM ONLY)2020-08-29 13:22:00 Test Item Value Reference [...] 0-0 (BEAKER) (test code = 413) PROTHROMBIN TIME/[id number] 05:41:00 Test Item Value Reference Range Interpretation Comments PROTIME (BEAKER) 17.4 seconds 11.9-14.2 H (test code = 759) INR (BEAKER) (test 1.45 See_Comment [Automat ed message] code = 370) The system [employer] generated this result transmitted ref erence range: <=5.90. The reference range was not used to int erpret this result as normal/abnormal . RECOMMENDED COUMADIN/WARFARIN INR THERAPY RANGESSTANDARD DOSE: 2.0 - 3.0 Includes: PROPHYLAXIS forvenous thrombosis, systemic embolization; TREATMENT for venous thrombosis and/or pulmonary embolus.HIGH RISK: Target INR is 2.5-3.5 for patients with mechanical heart valves.BUN AND CREATININE [id number] 17:04:00 Test Item Value Reference Range Interpretation Comments BLOOD UREA NITROGEN 9 mg/dL 7-21 (BEAKER) (test code = 354) CREATININE (BEAKER) 0.79 mg/dL 0.57-1.25 (test code = 358) BUN/CREAT RATIO 11 For a normal (MEEAKER) (test code individu al on a = 3633818809) normal diet, t he reference inter jewel for the mass ra nabil ranges between 12:1 and 20:1 (BUN i n mg/dL/creatinin e in mg/dL) EGFR (HARDIK) (test 90 mL/min/1.73 ESTIMA YUMIKO GFR IS code = 1092) sq m NOT ACCURATE CREATININE CLEARANCE IN PREDICTING GLOMERULAR FILTRATION RATE . ESTIMATED GFR I S NOT APPLICABLE FOR DIALYSIS PATIEN TS. Campus Administrative Assistant ID - DBVenous doppler leg, [id number] 15:52:54Ejection FractionSLEH ECHO HEARTLAB MKCKESSON CPACS Left [...] Study 08/28/2020 NEELAM Age 60 Visit Number [id number] Gender Female Accession Number [id number] Date of 1960 Referring Tricia Hernandez Room Number 2546 Physician Richard Prime Broker Jarad Mayberry Interpreting Vivek Benitez MD RVT [...] in cm/s ; Diameters are measured in [facility] Venous doppler leg, [id number] 15:52:54Ejection FractionSLE ECHO HEARTLAB MKCKESSON [facility] Left Impression1. There is partial echolucent deep [...] Study 08/28/2020 NEELAM Age 60 Visit Number [id number] Gender Female Accession Number [id number] Date of 1960 Referring [facility] Room Number 2546 Physician Elizabethia Prime Broker Jarad Mayberry Interpreting Vivek Benitez MD RVT [...] in cm/s ; Diameters are measured in [facility] Venous doppler leg, [id number] 15:52:54Ejection FractionSLE ECHO HEARTLAB MKCKESSON [facility] Left Impression1. There is partial echolucent deep [...] Study 08/28/2020 NEELAM Age 60 Visit Number [id number] Gender Female Accession Number [id number] Date of 1960 Referring [facility] Room Number 2546 Physician Elizabethia Prime Broker Jarad Mayberry Interpreting Vivek Benitez MD RVT [...] in cm/s ; Diameters are measured in [facility] SARS-COV2/RT-PCR ([facility])2020-08-28 12:32:00 Test Item Value Reference Range Interpretation Comments SARS-COV2/RT-PCR (test Negative Not Detected, Negative, code = 3210174) See external report for linked test SARS-COV-2 PERFORMING LAB [facility] (test code = 0543697) Negative result for this test determines that [...] 564(g) of the Act.Fact Sheet for Healthcare Providers:https://www.[employer].com/sites/default/files/product/documents/Fact_Shee y_IO_Jhbieaopj_Kpbs_JHGM-JbQ-4.pdfFact Sheet for Healthcare Patients:https://www.[employer].com/sites/default/files/product/ documents/Pajv_Hjxkt_Ezfpczzt_Jnnx_HWPH-YlG-6.pdfPerforming Laboratory:[facility] [place], [place] [address]FOBUPJYHYAV TIME/INR 2020-08-28 05:15:00 Test Item Value Reference Range Interpretation Comments PROTIME (BEAKER) 16.1 seconds 11.9-14.2 H (test code = 759) INR (BEAKER) (test 1.31 See_Comment [Automat ed message] code = 370) The system [employer] generated this result transmitted ref erence range: [...] 0-0 (BEAKER) (test code = 413) PROTHROMBIN TIME/[id number] 16:24:00 Test Item Value Reference Range Interpretation Comments PROTIME (BEAKER) 14.7 seconds 11.9-14.2 H (test code = 759) INR (BEAKER) (test 1.20 See_Comment [Automat ed message] code = 370) The system [employer] generated this result transmitted ref erence range: [...] 0-0 (BEAKER) (test code = 413) PROTHROMBIN TIME/[id number] 14:53:00 Test Item Value Reference Range Interpretation Comments PROTIME (BEAKER) 10.1 seconds 9.8-12.0 (test code = 759) INR (BEAKER) (test 0.94 See_Comment [Automat ed message] code = 370) The system [employer] generated this result transmitted ref erence range: [...] 0-0 (BEAKER) (test code = 413) PROTHROMBIN TIME/[id number] 19:23:00 Test Item Value Reference Range Interpretation Comments PROTIME (BEAKER) 15.0 seconds 11.9-14.2 H (test code = 759) INR (BEAKER) (test 1.20 See_Comment [Automat ed message] code = 370) The system [employer] generated this result transmitted ref erence range: [...] 0-1 PERCENT (BEAKER) (test code = 2801) [id number] 07:38:00 Test Item Value Reference Range Interpretation Comments PTT (test code = 62.8 See_Comment H [Automated message] 35048-2) The system [employer] generated this result transmitted ref erence range: 22.5 - 3 6.0 seconds. The reference range was not used to int erpret this result as normal/abnormal . Lab Interpretation (test Abnormal code = 53414-7) [facility]TT[facility] 07:38:00 Test Item Value Reference Range Interpretation Comments PTT (test code = 62.8 See_Comment H [Automated message] 35924-4) The system [employer] generated this result transmitted ref erence range: 22.5 - 3 6.0 seconds. The reference range was not used to int erpret this result as normal/abnormal . Lab Interpretation (test Abnormal code = 05995-1) [facility] 07:38:00 Test Item Value Reference Range Interpretation Comments PTT (test code = 62.8 See_Comment H [Automated message] 49774-5) The system [employer] generated this result transmitted ref erence range: 22.5 - 3 6.0 seconds. The reference range was not used to int erpret this result as normal/abnormal . Lab Interpretation (test Abnormal code = 89275-0) [facility]TT[facility] 07:38:00 Test Item Value Reference Range [...] WBC 0-0 (BEAKER) (test code = 413) [id number] 23:09:00 Test Item Value Reference Range Interpretation Comments PARTIAL THROMBOPLASTIN TIME 48.3 seconds 22.5-36.0 H (BEAKER) (test code = 760) [id number] 12:59:00 Test Item Value Reference Range Interpretation Comments PARTIAL THROMBOPLASTIN TIME 33.5 seconds 22.5-36.0 (BEAKER) (test code = 760) Basic Metabolic [id number] 06:56:00 Test Item Value Reference Range Interpretation Comments Sodium (test code = 140 meq/L 404-874 2018-2) Potassium (test 4.4 meq/L 3.5-5.1 code = 2823-3) Chloride (test code 100 meq/L 98-107 = 2075-0) CO2 (test code = 27 meq/L 2027-11) BUN (test code = 13 mg/dL 7-21 3094-0) Creatinine (test 0.81 mg/dL 0.57-1.25 code = 2160-0) Glucose (test code 101 mg/dL 70-105 = 2345-7) Calcium (test code 9.7 mg/dL 8.4-10.2 = 77006-1) EGFR (test code = 87 mL/min/1.[place] [address]-4) NOT ACCURATE CREATININE CLEARANCE IN PREDICTING GLOMERULAR FILTRATION RATE . ESTIMATED GFR I S NOT APPLICABLE FOR DIALYSIS PATIEN TSMaximiliano JESSICA (test code = Campus Administrative Assistant ID - JESSICA) BALA Hernandez [facility] Metabolic [id number] 06:56:00 Test Item Value Reference Range Interpretation Comments Sodium (test code = 140 meq/L 673-889 7515-2) Potassium (test 4.4 meq/L 3.5-5.1 code = 2823-3) Chloride (test code 100 meq/L 98-107 = 2075-0) CO2 (test code = 27 meq/L -2027-11) BUN (test code = 13 mg/dL 7- 3094-0) Creatinine (test 0.81 mg/dL 0.57-1.25 code = 2160-0) Glucose (test code 101 mg/dL 70-105 = 2345-7) Calcium (test code 9.7 mg/dL 8.4-10.2 = 48997-8) EGFR (test code = 87 mL/min/1.73 [place] [address]-3) NOT ACCURATE CREATININE CLEARANCE IN PREDICTING GLOMERULAR FILTRATION RATE . ESTIMATED GFR I S NOT APPLICABLE FOR DIALYSIS PATIEN JESSICA (test code = Campus Administrative Assistant ID - JESSICA) [facility] Metabolic [id number] 06:56:00 Test Item Value Reference Range Interpretation Comments Sodium (test code = 140 meq/L 933-939 0396-2) Potassium (test 4.4 meq/L 3.5-5.1 code = 2823-3) Chloride (test code 100 meq/L 98-107 = 2075-0) CO2 (test code = 27 meq/L 2027-11) BUN (test code = 13 mg/dL 7- 3094-0) Creatinine (test 0.81 mg/dL 0.57-1.25 code = 2160-0) Glucose (test code 101 mg/dL 70-105 = 2345-7) Calcium (test code 9.7 mg/dL 8.4-10.2 = 30921-9) EGFR (test code = 87 mL/min/1.73 [place] [address]-8) NOT ACCURATE CREATININE CLEARANCE IN PREDICTING GLOMERULAR FILTRATION RATE . ESTIMATED GFR I S NOT APPLICABLE FOR DIALYSIS PATIEN TSMaximiliano JESSICA (test code = Campus Administrative Assistant ID - JESSICA) [facility] METABOLIC [id number] 06:56:00 Test Item Value Reference Range Interpretation Comments SODIUM (BEAKER) 140 meq/L 136-145 (test code = 381) POTASSIUM (BEAKER) 4.4 meq/L 3.5-5.1 (test code = 379) CHLORIDE (BEAKER) 100 meq/L 98-107 (test code = 382) CO2 (BEAKER) (test 27 meq/L -29 code = 355) BLOOD UREA NITROGEN 13 [...] S NOT APPLICABLE FOR DIALYSIS PATIEN TS. Campus Administrative Assistant ID - BALA MCBC (HEMOGRAM ONLY)2020-08-24 06:41:00 [...] WBC 0-0 (BEAKER) (test code = 413) [id number] 06:32:00 Test Item Value Reference Range Interpretation Comments PARTIAL THROMBOPLASTIN TIME 34.7 seconds 22.5-36.0 (BEAKER) (test code = 760) [id number] 22:03:00 Test Item Value Reference Range Interpretation Comments PARTIAL THROMBOPLASTIN TIME 36.0 seconds 22.5-36.0 (BEAKER) (test code = 760) [id number] 14:36:00 Test Item Value Reference Range Interpretation [...] (BEAKER) (test code = 413) BASIC METABOLIC [id number] 05:47:00 Test Item Value Reference Range Interpretation [...] S NOT APPLICABLE FOR DIALYSIS PATIEN TS. Campus Administrative Assistant ID - BAL WCBC (HEMOGRAM ONLY)2020-08-23 05:19:00 [...] = 413) U/S, EXTREMITY, LOWER, LEFT (NON-VASCULAR) [id number] 15:15:00Please obtain biopsy of inguinal mass. Pending discharge Reason for exam:->Large left inguinal mass / lymphadenopathy [facility] [...] MDReport Verified Date/Time: 08/22/2020 15:15:14 Reading Location: [facility] C0[facility] Consult Reading Room US extremity non-vascular limited [id number] 15:15:00 Interface, External Ris In - 08/22/2020 [...] Muniz Verified Date/Time: 08/22/2020 15:15:14 Reading Location: [facility] C0[facility] Consult Reading Room Electronically signed by: Cassandra QUIJANO 08/22/2020 03:15 [facility] [id number] 15:15:00Interface, External Ris In - 08/22/2020 3:17 [...] Muniz Verified Date/Time: 08/22/2020 15:15:14 Reading Location: [facility] C013 Consult Reading Room Electronically signed by: Cassandra QUIJANO 08/22/2020 03:15 [facility]- vascular limited [id number] 15:15:00Interface, External Ris In - 08/22/2020 3:17 [...] MDReport Verified Date/Time: 08/22/2020 15:15:14 Reading Location: [address] Consult Reading Room Electronically signed by: Cassandra QUIJANO 08/22/2020 03:15 [facility] CenterBAS[facility] METABOLIC [id number] 06:22:00 Test Item Value Reference Range Interpretation [...] S NOT APPLICABLE FOR DIALYSIS PATIEN TS. Campus Administrative Assistant ID - BALA MC (HEMOGRAM ONLY)2020-08-22 05:57:00 Test Item Value Reference [...] (BEAKER) (test code = 413) COMPREHENSIVE METABOLIC [id number] 07:02:00 Test Item Value Reference Range Interpretation [...] S NOT APPLICABLE FOR DIALYSIS PATIEN TS. Campus Administrative Assistant ID - BALA MPROTHROMBIN TIME/[id number] 06:42:00 Test Item Value Reference Range Interpretation Comments PROTIME (BEAKER) 13.7 seconds 11.9-14.2 (test code = 759) INR (BEAKER) (test 1.08 See_Comment [Automat ed message] code = 370) The system [employer] generated this result transmitted ref erence range: [...] 413) RAD, SPINE, LUMBAR, 2 OR 3 [id number] 20:22:00Reason for exam:->low [facility] 1960 Sex: [...] LEFT 2020-08-20 20:22:00Reason for exam:->knee pain, fall [facility] 1960 [...] 2-3 VIEWS, LEFT, TO INCL PELVIS WHEN [id number] 20:22:00Reason for exam:->hip pain, fall [facility] : 1960 [...] Date/Time: 08/20/2020 20:22:11 XR hip 2 views [id number] 20:22:00Interface, External Ris In - 08/20/2020 8:24 [...] Prateek Fung MDReport Verified Date/Time: 08/20/2020 20:22:11 [facility] [id number] 20:22:00Interface, External Ris In - 08/20/2020 8:24 [...] Prateek Fung MDReport Verified Date/Time: 08/20/2020 20:22:11 [facility] left 2020-08-20 [...] Prateek Fung MDReport Verified Date/Time: 08/20/2020 20:22:11 [facility] lumbar 2 or 3 [id number] 20:22:00Interface, External Ris In - 08/20/2020 8:24 [...] degenerative changes discussed above. Signed: Prateek Fung Verified Date/Time: 08/20/2020 20:22:11 [facility]XR [facility] lumbar 2 or 3 [id number] 20:22:00Interface, External Ris In - 08/20/2020 8:24 [...] Prateek Fung MDReport Verified Date/Time: 08/20/2020 20:22:11 [facility] lumbar 2 or 3 [id number] 20:22:00Interface, External Ris In - 08/20/2020 8:24 [...] Prateek Fung [place] Verified Date/Time: 08/20/2020 20:22:11 [facility] 3 views left 2020-08-20 [...] Prateek Fung MDR[place] Verified Date/Time: 08/20/2020 20:22:11 [facility] 3 views [id number] 20:22:00Interface, External Ris In - 08/20/2020 8:24 [...] Prateek Fung MDR[place] Verified Date/Time: 08/20/2020 20:22:11 [facility] 3 views left 2020-08-20 [...] Prateek Fung MDRep[place] Verified Date/Time: 08/20/2020 20:22:11 [facility] CenterLactate dehydrogenase (LDH)2020-08-20 15:47:00 Test Item Value Reference Range Interpretation Comments LDH (test code = 2532-0) 228 U/L 125-220 H JESSICA (test code = JESSICA) Campus Administrative Assistant ID - DB Lab Interpretation (test Abnormal code = 46318-2) [facility]:00 Test Item Value Reference Range Interpretation Comments Magnesium (test code = 2.2 mg/dL 1.6-2.6 55318-2) JESSICA (test code = JESSICA) Campus Administrative Assistant ID - DB Lab Interpretation (test Normal code = 31315-5) [facility]47:00 Test Item Value Reference Range Interpretation Comments Phosphorus (test code = 3.1 mg/dL 2.3-4.7 2777-1) JESSICA (test code = JESSICA) Campus Administrative Assistant ID - DB Lab Interpretation (test Normal code = 51100-3) [facility] [id number] 15:47:00 Test Item Value Reference Range Interpretation Comments Uric Acid (test code = 5.1 mg/dL 2.6-7.2 3084-1) JESSICA (test code = JESSICA) Campus Administrative Assistant ID - DB Lab Interpretation (test Normal code = 04245-6) [facility]act[facility] (LDH)2020-08-20 15:47:00 Test Item Value Reference Range Interpretation Comments LDH (test code = 2532-0) 228 U/L 125-220 H JESSICA (test code = JESSICA) Campus Administrative Assistant ID - DB Lab Interpretation (test Abnormal code = 08187-2) [facility] 15:47:00 Test Item Value Reference Range Interpretation Comments Magnesium (test code = 2.2 mg/dL 1.6-2.6 12144-1) JESSICA (test code = JESSICA) Campus Administrative Assistant ID - DB Lab Interpretation (test Normal code = 52264-2) [facility] 15:47:00 Test Item Value Reference Range Interpretation Comments Phosphorus (test code = 3.1 mg/dL 2.3-4.7 2777-1) JESSICA (test code = JESSICA) Campus Administrative Assistant ID - DB Lab Interpretation (test Normal code = 11951-1) [facility] [id number] 15:47:00 Test Item Value Reference Range Interpretation Comments Uric Acid (test code = 5.1 mg/dL 2.6-7.2 3084-1) JESSICA (test code = JESSICA) Campus Administrative Assistant ID - DB Lab Interpretation (test Normal code = 40975-2) [facility] (LDH)2020-08-20 15:47:00 Test Item Value Reference Range Interpretation Comments LDH (test code = 2532-0) 228 U/L 125-220 H JESSICA (test code = JESSICA) Campus Administrative Assistant ID - DB Lab Interpretation (test Abnormal code = 67607-7) [facility] 15:47:00 Test Item Value Reference Range Interpretation Comments Magnesium (test code = 2.2 mg/dL 1.6-2.6 59457-2) JESSICA (test code = JESSICA) Campus Administrative Assistant ID - DB Lab Interpretation (test Normal code = 24075-9) [facility] 15:47:00 Test Item Value Reference Range Interpretation Comments Phosphorus (test code = 3.1 mg/dL 2.3-4.7 2777-1) JESSICA (test code = JESSICA) Campus Administrative Assistant ID - DB Lab Interpretation (test Normal code = 62849-7) [facility] [id number] 15:47:00 Test Item Value Reference Range Interpretation Comments Uric Acid (test code = 5.1 mg/dL 2.6-7.2 3084-1) JESSICA (test code = JESSICA) Campus Administrative Assistant ID - DB Lab Interpretation (test Normal code = 44677-5) [facility] [id number] 15:47:00 Test Item Value Reference Range Interpretation [...] S NOT APPLICABLE FOR DIALYSIS PATIEN TS. Campus Administrative Assistant ID - [id number] 15:47:00 Test Item Value Reference Range Interpretation Comments MAGNESIUM (BEAKER) (test code = 2.2 mg/dL 1.6-2.6 627) Campus Administrative Assistant ID - [id number] 15:47:00 Test Item Value Reference Range Interpretation Comments PHOSPHORUS (BEAKER) (test code = 3.1 mg/dL 2.3-4.7 604) Campus Administrative Assistant ID - DBURIC [id number] 15:47:00 Test Item Value Reference Range Interpretation Comments URIC ACID (BEAKER) (test code = 5.1 mg/dL 2.6-7.2 773) Campus Administrative Assistant ID - DBLACTATE DEHYDROGENASE (LDH)2020-08-20 15:47:00 Test Item Value Reference Range Interpretation Comments LACTATE DEHYDROGENASE (BEAKER) (test 228 U/L 125-220 H code = 635) Campus Administrative Assistant ID - DBCBC W/PLT COUNT & AUTO [id number] 15:26:00 Test Item Value Reference Range Interpretation [...] (test code = 2801) AFB CULTURE + [id number] 17:40:00 Test Item Value Reference Range Interpretation Comments CULTURE (BEAKER) (test No acid-fast bacilli code = 1095) isolated in 42 days AFB SMEAR (BEAKER) No acid fast bacilli (test code = 994) seen AFB CULTURE + [id number] 16:47:00 Test Item Value Reference Range Interpretation Comments CULTURE (BEAKER) (test No acid-fast bacilli code = 1095) isolated in 42 days AFB SMEAR (BEAKER) No acid fast bacilli (test code = 994) seen FUNGUS CULTURE + [id number] 17:06:00 Test Item Value Reference Range Interpretation Comments CULTURE (BEAKER) (test No fungus isolated in code = 1095) 28 days FUNGUS SMEAR (BEAKER) No fungi seen (test code = 1406) FUNGUS CULTURE + [id number] 20:59:00 Test Item Value Reference Range Interpretation Comments CULTURE (BEAKER) (test No fungus isolated in code = 1095) 28 days FUNGUS SMEAR (BEAKER) No fungi seen (test code = 1406) POCT-GLUCOSE [id number] 17:00:00 Test Item Value Reference Range Interpretation Comments POC-GLUCOSE METER 193 mg/dL 70-110 H TESTED AT [facility] [address] (BEAKER) (test code [facility] = 1538) [place] [address] POCT-GLUCOSE [id number] 11:50:00 Test Item Value Reference Range Interpretation Comments POC-GLUCOSE METER 185 mg/dL 70-110 H TESTED AT [facility] [address] (BEAKER) (test code [facility] = 1538) [place] [address] CBC W/PLT COUNT & AUTO [id number] 09:22:00 Test Item Value Reference Range Interpretation [...] (BEAKER) (test code = 2801) BASIC METABOLIC [id number] 09:21:00 Test Item Value Reference Range Interpretation [...] NOT APPLICABLE FOR DIALYSIS PATIEN TS. C-REACTIVE [id number] 09:21:00 Test Item Value Reference Range Interpretation Comments C-REACTIVE PROTEIN (BEAKER) (test 2.31 mg/dL 0.00-0.50 H code = 676) HEPATIC FUNCTION [id number] 09:20:00 Test Item Value Reference Range Interpretation [...] code = 47 U/L 6-50 347) POCT-GLUCOSE [id number] 06:53:00 Test Item Value Reference Range Interpretation Comments POC-GLUCOSE METER 102 mg/dL 70-110 TESTED AT [facility] [address] (BEAKER) (test code [facility] = 1538) [place] [address] POCT-GLUCOSE [id number] 21:32:00 Test Item Value Reference Range Interpretation Comments POC-GLUCOSE METER 212 mg/dL 70-110 H TESTED AT [facility] [address] (BEAKER) (test code [facility] = 1538) [place] [address] POCT-GLUCOSE [id number] 16:26:00 Test Item Value Reference Range Interpretation Comments POC-GLUCOSE METER 170 mg/dL 70-110 H TESTED AT [facility] [address] (BEAKER) (test code [facility] = 1538) [place] [address] POCT-GLUCOSE [id number] 05:53:00 Test Item Value Reference Range Interpretation Comments POC-GLUCOSE METER 90 mg/dL 70-110 TESTED AT [facility] [address] [facility] (test code = [facility] 1538) [place] [address] POCT-GLUCOSE [id number] 21:52:00 Test Item Value Reference Range Interpretation Comments POC-GLUCOSE METER 130 mg/dL 70-110 H TESTED AT [facility] [address] ([facility] (test code [facility] = 1538) [place] [address] POCT-GLUCOSE [id number] 17:16:00 Test Item Value Reference Range Interpretation Comments POC-GLUCOSE METER 177 mg/dL 70-110 H TESTED AT [facility] [address] ([facility] (test code [facility] = 1538) [place] [address] [id number] 16:02:00 Test Item Value Reference Range Interpretation Comments POTASSIUM ([facility] (test code = 3.9 meq/L 3.5-5.5 379) POCT-GLUCOSE [id number] 12:10:00 Test Item Value Reference Range Interpretation Comments POC-GLUCOSE METER 176 mg/dL 70-110 H TESTED AT [facility] [address] ([facility] (test code [facility] = 1538) [place] [address] POCT-GLUCOSE [id number] 05:57:00 Test Item Value Reference Range Interpretation Comments POC-GLUCOSE METER 113 mg/dL 70-110 H TESTED AT [facility] [address] ([facility] (test code [facility] = 1538) [place] [address] POCT-GLUCOSE [id number] 21:53:00 Test Item Value Reference Range Interpretation Comments POC-GLUCOSE METER 160 mg/dL 70-110 H TESTED AT [facility] [address] ([facility] (test code [facility] = 1538) [place] [address] POCT-GLUCOSE [id number] 16:49:00 Test Item Value Reference Range Interpretation Comments POC-GLUCOSE METER 158 mg/dL 70-110 H TESTED AT [facility] [address] ([facility] (test code [facility] = 1538) [place] [address] POCT-GLUCOSE [id number] 12:14:00 Test Item Value Reference Range Interpretation Comments POC-GLUCOSE METER 162 mg/dL 70-110 H TESTED AT [facility] [address] (BEAKER) (test code [facility] = 1538) [place] [address] BASIC METABOLIC [id number] 04:57:00 Test Item Value Reference Range Interpretation [...] PATIEN TS. CBC W/PLT COUNT & AUTO [id number] 04:28:00 Test Item Value Reference Range Interpretation [...] PERCENT (BEAKER) (test code = 2801) POCT-GLUCOSE [id number] 20:44:00 Test Item Value Reference Range Interpretation Comments POC-GLUCOSE METER 168 mg/dL 70-110 H TESTED AT [facility] [address] (BEAKER) (test code [facility] = 1538) [place] [address] POCT-GLUCOSE [id number] 16:10:00 Test Item Value Reference Range Interpretation Comments POC-GLUCOSE METER 228 mg/dL 70-110 H TESTED AT [facility] [address] (BEAKER) (test code [facility] = 1538) [place] [address] POCT-GLUCOSE [id number] 13:15:00 Test Item Value Reference Range Interpretation Comments POC-GLUCOSE METER 182 mg/dL 70-110 H TESTED AT [facility] [address] (BEAKER) (test code [facility] = 1538) [place] [address] POCT-GLUCOSE [id number] 06:57:00 Test Item Value Reference Range Interpretation Comments POC-GLUCOSE METER 153 mg/dL 70-110 H TESTED AT [facility] [address] ([facility]) (test code [facility] = 1538) [place] [address] POCT-GLUCOSE [id number] 21:27:00 Test Item Value Reference Range Interpretation Comments POC-GLUCOSE METER 146 mg/dL 70-110 H TESTED AT [facility] [address] ([facility]) (test code [facility] = 1538) [place] [address] POCT-GLUCOSE [id number] 17:17:00 Test Item Value Reference Range Interpretation Comments POC-GLUCOSE METER 134 mg/dL 70-110 H TESTED AT [facility] [address] ([facility]) (test code [facility] = 1538) [place] [address] POCT-GLUCOSE [id number] 13:49:00 Test Item Value Reference Range Interpretation Comments POC-GLUCOSE METER 177 mg/dL 70-110 H TESTED AT [facility] [address] ([facility]) (test code [facility] = 1538) [place] [address] POCT-GLUCOSE [id number] 05:34:00 Test Item Value Reference Range Interpretation Comments POC-GLUCOSE METER 118 mg/dL 70-110 H TESTED AT [facility] [address] ([facility]) (test code [facility] = 1538) [place] [address] POCT-GLUCOSE [id number] 21:14:00 Test Item Value Reference Range Interpretation Comments POC-GLUCOSE METER 149 mg/dL 70-110 H TESTED AT [facility] [address] ([facility]) (test code [facility] = 1538) [place] [address] POCT-GLUCOSE [id number] 17:44:00 Test Item Value Reference Range Interpretation Comments POC-GLUCOSE METER 132 mg/dL 70-110 H TESTED AT [facility] [address] ([facility]) (test code [facility] [address]) [place] [address] POCT-GLUCOSE [id number] 12:21:00 Test Item Value Reference Range Interpretation Comments POC-GLUCOSE METER 168 mg/dL 70-110 H TESTED AT [facility] [address] (BEAKER) ([facility] [place] [address] [id number] 05:19:00 Test Item Value Reference Range Interpretation Comments PARTIAL THROMBOPLASTIN TIME 84.3 seconds 23.2-36.1 H (BEAKER) (test code = 760) POCT-GLUCOSE [id number] 20:50:00 Test Item Value Reference Range Interpretation Comments POC-GLUCOSE METER 147 mg/dL 70-110 H TESTED AT [facility] [address] (BEAKER) ([facility] [place] [address] POCT-GLUCOSE [id number] 17:19:00 Test Item Value Reference Range Interpretation Comments POC-GLUCOSE METER 238 mg/dL 70-110 H TESTED AT [facility] [address] ([facility] (test [facility] [address] [place] [address] [id number] 15:09:00 Test Item Value Reference Range Interpretation Comments PARTIAL THROMBOPLASTIN TIME 74.8 seconds 23.2-36.1 H (BEAKER) (test code = 760) POCT-GLUCOSE [id number] 11:57:00 Test Item Value Reference Range Interpretation Comments POC-GLUCOSE METER 146 mg/dL 70-110 H TESTED AT [facility] [address] ([facility] (test code [facility] = 1538) [place] [address] POCT-GLUCOSE [id number] 05:37:00 Test Item Value Reference Range Interpretation Comments POC-GLUCOSE METER 139 mg/dL 70-110 H TESTED AT [facility] [address] ([facility] (test code [facility] = 1538) [place] [address] BASIC METABOLIC [id number] 04:04:00 Test Item Value Reference Range Interpretation [...] S NOT APPLICABLE FOR DIALYSIS PATIEN TS. [id number] 04:02:00 Test Item Value Reference Range Interpretation Comments PARTIAL THROMBOPLASTIN TIME 76.5 seconds 23.2-36.1 H (BEAKER) (test code = 760) CBC W/PLT COUNT & AUTO [id number] 03:41:00 Test Item Value Reference Range Interpretation [...] PERCENT (BEAKER) (test code = 2801) POCT-GLUCOSE [id number] 22:12:00 Test Item Value Reference Range Interpretation Comments POC-GLUCOSE METER 247 mg/dL 70-110 H TESTED AT [facility] [address] (BEAKER) (test code [facility] = 1538) [place] [address] [id number] 21:11:00 Test Item Value Reference Range Interpretation Comments PARTIAL THROMBOPLASTIN TIME 62.4 seconds 23.2-36.1 H (BEAKER) (test code = 760) [id number] 12:45:00 Test Item Value Reference Range Interpretation Comments PARTIAL THROMBOPLASTIN TIME 101.2 seconds 23.2-36.1 H (BEAKER) (test code = 760) POCT-GLUCOSE [id number] 11:48:00 Test Item Value Reference Range Interpretation Comments POC-GLUCOSE METER 259 mg/dL 70-110 H TESTED AT [facility] [address] (BEAKER) (test code [facility] = 1538) [place] [address] POCT-GLUCOSE [id number] 05:38:00 Test Item Value Reference Range Interpretation Comments POC-GLUCOSE METER 121 mg/dL 70-110 H TESTED AT [facility] [address] (BEAKER) (test code [facility] = 1538) [place] [address] [id number] 05:33:00 Test Item Value Reference Range Interpretation Comments PARTIAL THROMBOPLASTIN TIME 108.5 seconds 23.2-36.1 H (BEAKER) (test code = 760) POCT-GLUCOSE [id number] 20:59:00 Test Item Value Reference Range Interpretation Comments POC-GLUCOSE METER 197 mg/dL 70-110 H TESTED AT [facility] [address] (BEAKER) (test code [facility] = 1538) [place] [address] POCT-GLUCOSE [id number] 16:47:00 Test Item Value Reference Range Interpretation Comments POC-GLUCOSE METER 150 mg/dL 70-110 H TESTED AT [facility] [address] (BEAKER) (test code [facility] = 1538) [place] [address] [id number] 15:21:00 Test Item Value Reference Range Interpretation Comments PARTIAL THROMBOPLASTIN TIME 79.9 seconds 23.2-36.1 H (BEAKER) (test code = 760) POCT-GLUCOSE [id number] 12:52:00 Test Item Value Reference Range Interpretation Comments POC-GLUCOSE METER 207 mg/dL 70-110 H TESTED AT [facility] [address] (BEAKER) (test code [facility] = 1538) [place] [address] [id number] 09:17:00 Test Item Value Reference Range Interpretation Comments PARTIAL THROMBOPLASTIN TIME 95.7 seconds 23.2-36.1 H (BEAKER) (test code = 760) BASIC METABOLIC [id number] 02:36:00 Test Item Value Reference Range Interpretation [...] I S NOT APPLICABLE FOR DIALYSIS PATIEN [id number] 02:26:00 Test Item Value Reference Range Interpretation Comments PARTIAL THROMBOPLASTIN TIME 104.6 seconds 23.2-36.1 H (BEAKER) (test code = 760) CBC W/PLT COUNT & AUTO [id number] 02:18:00 Test Item Value Reference Range Interpretation [...] PERCENT (BEAKER) (test code = 2801) POCT-GLUCOSE [id number] 22:17:00 Test Item Value Reference Range Interpretation Comments POC-GLUCOSE METER 211 mg/dL 70-110 H TESTED AT [facility] [address] (BEAKER) (test code [facility] = 1538) [place] [address] [id number] 20:16:00 Test Item Value Reference Range Interpretation Comments PARTIAL THROMBOPLASTIN TIME 107.2 seconds 23.2-36.1 H (BEAKER) (test code = 760) POCT-GLUCOSE [id number] 16:24:00 Test Item Value Reference Range Interpretation Comments POC-GLUCOSE METER 167 mg/dL 70-110 H TESTED AT [facility] [address] (BEAKER) (test code [facility] = 1538) [place] [address] [id number] 14:17:00 Test Item Value Reference Range Interpretation Comments PARTIAL THROMBOPLASTIN TIME 96.3 seconds 23.2-36.1 H (BEAKER) (test code = 760) POCT-GLUCOSE [id number] 11:40:00 Test Item Value Reference Range Interpretation Comments POC-GLUCOSE METER 190 mg/dL 70-110 H TESTED AT [facility] [address] (BEAKER) (test code [facility] = 1538) [place] [address] [id number] 07:52:00 Test Item Value Reference Range Interpretation Comments PARTIAL THROMBOPLASTIN TIME 58.0 seconds 23.2-36.1 H (BEAKER) (test code = 760) BASIC METABOLIC [id number] 06:09:00 Test Item Value Reference Range Interpretation [...] S NOT APPLICABLE FOR DIALYSIS PATIEN TS. [id number] 05:53:00 Test Item Value Reference Range Interpretation Comments PARTIAL THROMBOPLASTIN TIME 138.1 seconds 23.2-36.1 H (BEAKER) (test code = 760) CBC W/PLT COUNT & AUTO [id number] 05:45:00 Test Item Value Reference Range Interpretation [...] GRANULOCYTES-RELATIVE PERCENT (BEAKER) (test code = 2801) [id number] 23:56:00 Test Item Value Reference Range Interpretation Comments PARTIAL THROMBOPLASTIN TIME 96.6 seconds 23.2-36.1 H (BEAKER) (test code = 760) POCT-GLUCOSE [id number] 21:22:00 Test Item Value Reference Range Interpretation Comments POC-GLUCOSE METER 160 mg/dL 70-110 H TESTED AT [facility] [address] (BEAKER) (test code [facility] = 1538) [place] [address] POCT-GLUCOSE [id number] 17:27:00 Test Item Value Reference Range Interpretation Comments POC-GLUCOSE METER 151 mg/dL 70-110 H TESTED AT [facility] [address] (BEAKER) (test code [facility] = 1538) [place] [address] [id number] 16:40:00 Test Item Value Reference Range Interpretation Comments PARTIAL THROMBOPLASTIN TIME 40.0 seconds 23.2-36.1 H (BEAKER) (test code = 760) POCT-GLUCOSE [id number] 13:43:00 Test Item Value Reference Range Interpretation Comments POC-GLUCOSE METER 164 mg/dL 70-110 H TESTED AT [facility] [address] (BEAKER) (test code [facility] = 1538) [place] [address] [id number] 13:34:00 Test Item Value Reference Range Interpretation Comments PARTIAL THROMBOPLASTIN TIME 141.6 seconds 23.2-36.1 H (BEAKER) (test code = 760) OCCULT BLOOD, [id number] 13:20:00 Test Item Value Reference Range Interpretation Comments FECAL OCCULT BLOOD (BEAKER) (test Negative Negative code = 618) BASIC METABOLIC [id number] 12:13:00 Test Item Value Reference Range Interpretation [...] APPLICABLE FOR DIALYSIS PATIEN TS. HEPATIC FUNCTION [id number] 12:13:00 Test Item Value Reference Range Interpretation [...] 6-50 347) CBC W/PLT COUNT & AUTO [id number] 11:47:00 Test Item Value Reference Range Interpretation [...] GRANULOCYTES-RELATIVE PERCENT (BEAKER) (test code = 2801) [id number] 06:33:00 Test Item Value Reference Range Interpretation Comments PARTIAL THROMBOPLASTIN TIME 102.3 seconds 23.2-36.1 H (BEAKER) (test code = 760) POCT-GLUCOSE [id number] 05:47:00 Test Item Value Reference Range Interpretation Comments POC-GLUCOSE METER 151 mg/dL 70-110 H TESTED AT [facility] [address] (BEAKER) (test code [facility] = 1538) [place] [address] BASIC METABOLIC [id number] 01:16:00 Test Item Value Reference Range Interpretation [...] 358) GLUCOSE RANDOM 154 mg/dL 70-110 H ([facility]) (test code = 652) CALCIUM (BEAKER) 8.1 mg/dL 8.5-10.5 L (test code = 697) EGFR (BEAKER) (test 106 mL/min/1.73 ESTIM ATED GFR IS code = 1092) sq m NOT ACCURATE CREATININE CLEARANCE IN PREDICTING GLOMERULAR FILTRATION RATE . ESTIMATED GFR I S NOT APPLICABLE FOR DIALYSIS PATIEN TS. [id number] 01:06:00 Test Item Value Reference Range Interpretation Comments PARTIAL THROMBOPLASTIN TIME 46.8 seconds 23.2-36.1 H [facility] (test code = 760) [id number] 23:18:00 Test Item Value Reference Range Interpretation Comments PARTIAL THROMBOPLASTIN TIME 177.9 seconds 23.2-36.1 HH ([facility]) (test code = 760) POCT-GLUCOSE [id number] 22:05:00 Test Item Value Reference Range Interpretation Comments POC-GLUCOSE METER 204 mg/dL 70-110 H TESTED AT [facility] [address] ([facility]) (test code [facility] = 1538) [place] [address] [id number] 16:35:00 Test Item Value Reference Range Interpretation Comments PARTIAL THROMBOPLASTIN TIME 47.9 seconds 23.2-36.1 H ([facility]) (test code = 760) POCT-GLUCOSE [id number] 16:33:00 Test Item Value Reference Range Interpretation Comments POC-GLUCOSE METER 167 mg/dL 70-110 H TESTED AT [facility] [address] ([facility]) (test code [facility] = 1538) [place] [address] [id number] 15:11:00 Test Item Value Reference Range Interpretation Comments PARTIAL THROMBOPLASTIN TIME 198.7 seconds 23.2-36.1 HH ([facility]) (test code = 760) POCT-GLUCOSE [id number] 12:08:00 Test Item Value Reference Range Interpretation Comments POC-GLUCOSE METER 166 mg/dL 70-110 H TESTED AT [facility] [address] ([facility]) (test code [facility] = 1538) [place] [address] [id number] 07:27:00 Test Item Value Reference Range Interpretation Comments PARTIAL THROMBOPLASTIN TIME 65.6 seconds 23.2-36.1 H ([facility]) (test code = 760) [id number] 05:59:00 Test Item Value Reference Range Interpretation Comments PARTIAL THROMBOPLASTIN TIME 156.1 seconds 23.2-36.1 HH (BEAKER) (test code = 760) BASIC METABOLIC [id number] 05:54:00 Test Item Value Reference Range Interpretation [...] NOT APPLICABLE FOR DIALYSIS PATIEN TS. POCT-GLUCOSE [id number] 05:45:00 Test Item Value Reference Range Interpretation Comments POC-GLUCOSE METER 145 mg/dL 70-110 H TESTED AT [facility] [address] (BEAKER) (test code [facility] = 1538) [place] [address] CBC W/PLT COUNT & AUTO [id number] 05:36:00 Test Item Value Reference Range Interpretation [...] PERCENT (BEAKER) (test code = 2801) POCT-GLUCOSE [id number] 20:29:00 Test Item Value Reference Range Interpretation Comments POC-GLUCOSE METER 128 mg/dL 70-110 H TESTED AT [facility] [address] (BEAKER) (test code [facility] = 1538) [place] [address] POCT-GLUCOSE [id number] 16:58:00 Test Item Value Reference Range Interpretation Comments POC-GLUCOSE METER 160 mg/dL 70-110 H TESTED AT [facility] [address] (BEAKER) (test code [facility] = 1538) [place] [address] POCT-GLUCOSE [id number] 11:58:00 Test Item Value Reference Range Interpretation Comments POC-GLUCOSE METER 163 mg/dL 70-110 H TESTED AT [facility] [address] (BEAKER) (test code [facility] = 1538) [place] [address] [id number] 05:25:00 Test Item Value Reference Range Interpretation Comments PARTIAL THROMBOPLASTIN TIME 79.6 seconds 23.2-36.1 H (BEAKER) (test code = 760) CBC W/PLT COUNT & AUTO [id number] 05:18:00 Test Item Value Reference Range Interpretation [...] GRANULOCYTES-RELATIVE PERCENT (BEAKER) (test code = 2801) [id number] 21:47:00 Test Item Value Reference Range Interpretation Comments PARTIAL THROMBOPLASTIN TIME 85.4 seconds 23.2-36.1 H (BEAKER) (test code = 760) POCT-GLUCOSE [id number] 16:24:00 Test Item Value Reference Range Interpretation Comments POC-GLUCOSE METER 189 mg/dL 70-110 H TESTED AT [facility] [address] (BEAKER) (test code [facility] = 1538) [place] [address] [id number] 13:02:00 Test Item Value Reference Range Interpretation Comments PARTIAL THROMBOPLASTIN TIME 51.8 seconds 23.2-36.1 H (BEAKER) (test code = 760) POCT-GLUCOSE [id number] 11:41:00 Test Item Value Reference Range Interpretation Comments POC-GLUCOSE METER 169 mg/dL 70-110 H TESTED AT [facility] [address] (BEAKER) (test code [facility] = 1538) [place] [address] VITAMIN D, [id number] 08:15:00 Test Item Value Reference Range Interpretation Comments VITAMIN D 25-OH (BEAKER) (test code 5.4 ng/mL 6.6-49.9 L = 2764) Effective 12/25/2016: Reference Range ChangeNew: 6.6-49.9 ng/mL Previous: 13.0-47.8 ng/mLRecommended Vitamin D Target Range: 30.0-40.0 ng/mLPOCT-GLUCOSE [id number] 06:20:00 Test Item Value Reference Range Interpretation Comments POC-GLUCOSE METER 158 mg/dL 70-110 H TESTED AT [facility] [address] ([facility]) (test code [facility] = 1538) [place] [address] HEPATIC FUNCTION [id number] 05:45:00 Test Item Value Reference Range Interpretation Comments TOTAL PROTEIN (BEAKER) 6.5 gm/dL 6.0-8.5 Speci men markedly (test code = 770) hemolyzed ALBUMIN (BEAKER) (test 1.8 g/dL 3.5-5.0 L Speci men markedly code = 1145) hemolyzed BILIRUBIN TOTAL 1.2 mg/dL 0.1-1.3 Specimen michael may ([facility]) (test code = hemoly zed 377) BILIRUBIN DIRECT 0.1 mg/dL 0.0-0.5 Specimen abeba browning (BEAKER) (test code = hemoly zed 706) ALKALINE PHOSPHATASE 142 U/L 30-115 H (BEAKER) (test code = 346) AST (SGOT) (BEAKER) 49 U/L 5-40 H Specimen markedly (test code = 353) hemolyzed ALT (SGPT) (BEAKER) 28 U/L 6-50 Specimen markedly (test code = 347) hemolyzed [id number] 05:30:00 Test Item Value Reference Range Interpretation Comments PARTIAL THROMBOPLASTIN TIME 63.3 seconds 23.2-36.1 H (AKER) (test code = 760) Prior to initiating heparinCBC W/PLT COUNT & AUTO [id number] 05:23:00 Test Item Value Reference Range Interpretation [...] GRANULOCYTES-RELATIVE PERCENT (BEAKER) (test code = 2801) [id number] 00:59:00 Test Item Value Reference Range Interpretation Comments PARTIAL THROMBOPLASTIN TIME 62.3 seconds 23.2-36.1 H (BEAKER) (test code = 760) POCT-GLUCOSE [id number] 21:34:00 Test Item Value Reference Range Interpretation Comments POC-GLUCOSE METER 196 mg/dL 70-110 H TESTED AT [facility] [address] (BEAKER) (test code [facility] = 1538) [place] [address] [id number] 18:14:00 Test Item Value Reference Range Interpretation Comments PARTIAL THROMBOPLASTIN TIME 82.3 seconds 23.2-36.1 H (BEAKER) (test code = 760) POCT-GLUCOSE [id number] 17:01:00 Test Item Value Reference Range Interpretation Comments POC-GLUCOSE METER 192 mg/dL 70-110 H TESTED AT [facility] [address] (BEAKER) (test code [facility] = 1538) [place] [address] POCT-GLUCOSE [id number] 13:29:00 Test Item Value Reference Range Interpretation Comments POC-GLUCOSE METER 207 mg/dL 70-110 H TESTED AT [facility] [address] (BEAKER) (test code [facility] = 1538) [place] [address] [id number] 12:48:00 Test Item Value Reference Range Interpretation Comments PARTIAL THROMBOPLASTIN TIME 63.3 seconds 23.2-36.1 H (BEAKER) (test code = 760) CBC W/PLT COUNT & AUTO [id number] 12:25:00 Test Item Value Reference Range Interpretation [...] PERCENT (BEAKER) (test code = 2801) POCT-GLUCOSE [id number] 06:40:00 Test Item Value Reference Range Interpretation Comments POC-GLUCOSE METER 166 mg/dL 70-[place] [address] (BEAKER) (test code [facility] = 1538) [place] [address] BUN AND [id number] 06:07:00 Test Item Value Reference Range Interpretation [...] 12 noon Amikacin Blood level draw. Thank [id number] 05:48:00 Test Item Value Reference Range Interpretation Comments PARTIAL THROMBOPLASTIN TIME 60.0 seconds 23.2-36.1 H ([facility]) (test code = 760) ANTI-NUCLEAR ANTIBODY (TAMMI)2017-11-20 00:24:00 Test Item Value Reference Range Interpretation Comments ANTI-NUCLEAR ANTIBODY (TAMMI) ([facility]) Negative Negative (test code = 418) Test performed by IFA method.Test performed by IFA method.[id number] 23:01:00 Test Item Value Reference Range Interpretation Comments PARTIAL THROMBOPLASTIN TIME 58.3 seconds 23.2-36.1 H ([facility]) (test code = 760) POCT-GLUCOSE [id number] 21:22:00 Test Item Value Reference Range Interpretation Comments POC-GLUCOSE METER 171 mg/dL 70-110 H TESTED AT [facility] [address] ([facility]) (test code [facility] = 1538) [place] [address] POCT-GLUCOSE [id number] 16:54:00 Test Item Value Reference Range Interpretation Comments POC-GLUCOSE METER 135 mg/dL 70-110 H TESTED AT [facility] [address] ([facility]) (test code [facility] = 1538) [place] [address] PERIPHERAL BLOOD SMEAR - PATHOLOGIST [id number] 15:35:00 Test Item Value Reference Range Interpretation Comments PERIPHERAL SMR REVIEW Neutrophilic ([facility]) (test code = leukocytosis with 2640) increased band forms and unremarkable WBC morphology. Normocytic anemia with unremarkable RBCs. Platelets unremarkable. No dysmorphic or blast forms seen. [id number] Nazario Becker M.D. ([facility]) (test code = (electronic signature) 2849) (MANUAL DIFFERENTIAL)2017-11-19 15:31:00 Test Item Value Reference Range Interpretation Comments NEUTROPHILS - REL (DIFF) ([facility]) 77 % (test code = 1359) LYMPHOCYTES [...] (BEAKER) (test code = 1+ few 480) [id number] 15:21:00 Test Item Value Reference Range Interpretation Comments PARTIAL THROMBOPLASTIN TIME 39.3 seconds 23.2-36.1 H (BEAKER) (test code = 760) POCT-GLUCOSE [id number] 13:08:00 Test Item Value Reference Range Interpretation Comments POC-GLUCOSE METER 140 mg/dL 70-110 H TESTED AT [facility] [address] (BEAKER) (test code [facility] = 1538) [place] [address] CBC W/PLT COUNT & AUTO [id number] 09:33:00 Test Item Value Reference Range Interpretation [...] (BEAKER) (test code = 413) BUN AND [id number] 08:45:00 Test Item Value Reference Range Interpretation [...] 12 noon Amikacin Blood level draw. Thank [id number] 08:27:00 Test Item Value Reference Range Interpretation Comments PARTIAL THROMBOPLASTIN TIME 29.5 seconds 23.2-36.1 (BEAKER) (test code = 760) POCT-GLUCOSE [id number] 04:48:00 Test Item Value Reference Range Interpretation Comments POC-GLUCOSE METER 142 mg/dL 70-110 H TESTED AT [facility] [address] ([facility]) (test code [facility] = 1538) [place] [address] RHEUMATOID FACTOR AB, REFLEX TO [id number] 01:10:00 Test Item Value Reference Range Interpretation Comments RHEUMATOID FACTOR (HARDIK) (test Negative code = 573) [id number] 00:56:00 Test Item Value Reference Range Interpretation [...] patients with mechanical heart valves.VENOUS DOPPLER LEGS, [id number] 22:05:00Reason for exam:->leukocytosis persistentFINAL REPORT CLINICAL HISTORY: [...] MDReport Verified Date/Time: 11/18/2017 22:05:25 Reading Location: [address] Reading Room POCT-GLUCOSE [id number] 20:56:00 Test Item Value Reference Range Interpretation Comments POC-GLUCOSE METER 111 mg/dL 70-110 H TESTED AT [facility] [address] (HARDIK) (test code [facility] = 1538) [place] [address] AMIKACIN LEVEL, [id number] 17:26:00 Test Item Value Reference Range Interpretation Comments AMIKACIN, TROUGH (HARDIK) (test 10.3 ug/mL 4.0-8.0 HH code = 1830) Therapeutic Range (ug/mL)Peak: 25.0-35.0Trough: 4.0-8.0 Toxic: >35.0VENOUS DOPPLER ARMS, [id number] 16:59:00Reason for exam:->swelling right handAddendum BeginsREPORT STATUS:A Addendum:A left-sided PICC is visualized. End of addendum. Signed: Dangelo Proctoreport Verified Date/Time: 11/18/2017 16:59:45 Reading Location: [facility] Radiology Reading RoomAddendum EndsFINAL REPORT Bilateral [...] Proctoreport Verified Date/Time: 11/18/2017 15:36:41 [facility] POCT-GLUCOSE [id number] 16:58:00 Test Item Value Reference Range Interpretation Comments POC-GLUCOSE METER 100 mg/dL 70-110 TESTED AT [facility] [address] (HARDIK) (test code [facility] = 1538) [place] [address] POCT-GLUCOSE [id number] 11:30:00 Test Item Value Reference Range Interpretation Comments POC-GLUCOSE METER 119 mg/dL 70-110 H TESTED AT [facility] [address] (BEAKER) (test code [facility] = 1538) [place] [address] HEPATITIS B SURFACE [id number] 11:18:00 Test Item Value Reference Range Interpretation Comments HEPATITIS B SURFACE ANTIBODY 436.5 mIU/mL <8.0 H (BEAKER) (test code = 647) HEPATITIS C [id number] 11:18:00 Test Item Value Reference Range Interpretation Comments HEPATITIS C ANTIBODY (BEAKER) Nonreactive Nonreactive (test code = 367) AMIKACIN LEVEL, [id number] 11:03:00 Test Item Value Reference Range Interpretation Comments AMIKACIN, PEAK (BEAKER) (test code 26.0 ug/mL 25.0-35.0 = 1831) Therapeutic Range (ug/mL)Peak: 25.0-35.0Trough: 4.0-8.0 Toxic: >35.0 SURGICALLY OBTAINED CULTURE + GRAM [id number] 08:25:00 Test Item Value Reference Interpretation Comments [...] No organisms seen (BEAKER) (test code = 546698) ANAEROBIC [id number] 07:53:00 Test Item Value Reference Range Interpretation Comments CULTURE (BEAKER) (test No anaerobes isolated code = 1095) GRAM STAIN RESULT 1+ WBCs (BEAKER) (test code = 1123) GRAM STAIN RESULT No organisms seen (BEAKER) (test code = 93306) POCT-GLUCOSE [id number] 06:37:00 Test Item Value Reference Range Interpretation Comments POC-GLUCOSE METER 135 mg/dL 70-110 H TESTED AT [facility] [address] (BEAKER) (test code [facility] = 1538) [place] [address] HIV-1 ANTIGEN WITH HIV-1/2 [id number] 05:51:00 Test Item Value Reference Range Interpretation Comments HIV-1 ANTIGEN WITH HIV 1\\T\\2 Nonreactive Nonreactive ANTIBODY (2) (BEAKER) (test code = 2586) HEPATITIS B SURFACE [id number] 05:46:00 Test Item Value Reference Range Interpretation Comments HEPATITIS B SURFACE ANTIGEN (2) Nonreactive Nonreactive (BEAKER) (test code = 2585) CBC W/PLT COUNT & AUTO [id number] 05:11:00 Test Item Value Reference Range Interpretation [...] code = 2801) Smear reviewed. Results confirmed.POCT-GLUCOSE [id number] 23:01:00 Test Item Value Reference Range Interpretation Comments POC-GLUCOSE METER 111 mg/dL 70-110 H TESTED AT [facility] [address] ([facility]) (test code [facility] = 1538) [place] [address] POCT-GLUCOSE [id number] 17:15:00 Test Item Value Reference Range Interpretation Comments POC-GLUCOSE METER 100 mg/dL 70-110 TESTED AT [facility] [address] ([facility]) (test code [facility] = 1538) [place] [address] C-REACTIVE [id number] 14:34:00 Test Item Value Reference Range Interpretation Comments C-REACTIVE PROTEIN ([facility]) (test 35.06 mg/dL 0.00-0.50 H code = 676) POCT-GLUCOSE [id number] 12:50:00 Test Item Value Reference Range Interpretation Comments POC-GLUCOSE METER 221 mg/dL 70-110 H TESTED AT [facility] [address] ([facility]) (test code [facility] = 1538) [place] [address] CBC W/PLT COUNT & AUTO [id number] 10:56:00 Test Item Value Reference Range Interpretation Comments WHITE BLOOD CELL COUNT 34.9 K/ L 4.0-10.0 H (AKER) (test code = 775) RED BLOOD CELL COUNT 3.27 M/ L 4.00-5.00 L (AKER) (test code = 761) HEMOGLOBIN ([facility]) 8.7 GM/DL 12.0-15.5 L (test code = [...] PERCENT (BEAKER) (test code = 2801) POCT-GLUCOSE [id number] 10:03:00 Test Item Value Reference Range Interpretation Comments POC-GLUCOSE METER 104 mg/dL 70-110 TESTED AT [facility] [address] (BEAKER) (test code [facility] = 1538) [place] [address] BASIC METABOLIC [id number] 04:51:00 Test Item Value Reference Range Interpretation [...] NOT APPLICABLE FOR DIALYSIS PATIEN TS. POCT-GLUCOSE [id number] 20:41:00 Test Item Value Reference Range Interpretation Comments POC-GLUCOSE METER 127 mg/dL 70-110 H TESTED AT [facility] [address] ([facility]) (test code [facility] = 1538) [place] [address] POCT-GLUCOSE [id number] 17:03:00 Test Item Value Reference Range Interpretation Comments POC-GLUCOSE METER 145 mg/dL 70-110 H TESTED AT [address] ([facility]) (test code [facility] = 1538) [place] [address] [id number] 12:39:00 Test Item Value Reference Range Interpretation Comments [facility]ALCITONIN [facility] (test code 1.27 ng/mL <0.05 H = 3036) SEPSIS RISK (ng/mL)Low: 0.05-0.50Intermediate: 0.51-2.00High: >=2.01POCT-GLUCOSE [id number] 11:58:00 Test Item Value Reference Range Interpretation Comments POC-GLUCOSE METER 120 mg/dL 70-110 H TESTED AT [facility] [address] (BEAKER) (test code [facility] = 1538) [place] [address] CBC W/PLT COUNT & AUTO [id number] 09:50:00 Test Item Value Reference Range Interpretation [...] PERCENT (BEAKER) (test code = 2801) POCT-GLUCOSE [id number] 06:32:00 Test Item Value Reference Range Interpretation Comments POC-GLUCOSE METER 124 mg/dL 70-110 H TESTED AT [facility] [address] (BEAKER) (test code [facility] = 1538) [place] [address] BASIC METABOLIC [id number] 06:27:00 Test Item Value Reference Range Interpretation [...] APPLICABLE FOR DIALYSIS PATIEN TS. BUN AND [id number] 06:26:00 Test Item Value Reference Range Interpretation [...] APPLICABLE FOR DIALYSIS PATIEN TS. HEMOGLOBIN AND [id number] 06:03:00 Test Item Value Reference Range Interpretation Comments HEMOGLOBIN (BEAKER) (test code = 8.6 GM/DL 12.0-15.5 L 410) HEMATOCRIT (BEAKER) (test code = 25.9 % 36.0-46.0 L 411) CT, CHEST, WITHOUT [id number] 22:51:00FINAL REPORT CLINICAL HISTORY: Leukocytosis FINDINGS: Multiple [...] MDReport Verified Date/Time: 11/15/2017 22:51:35 Reading Location: [address] [place], [id number] 22:51:00FINAL REPORT CLINICAL HISTORY: Leukocytosis FINDINGS: Multiple [...] MDReport Verified Date/Time: 11/15/2017 22:51:35 Reading Location: [address] Reading Room POCT-GLUCOSE [id number] 21:14:00 Test Item Value Reference Range Interpretation Comments POC-GLUCOSE METER 128 mg/dL 70-110 H TESTED AT [facility] [address] (BEAKER) (test code [facility] = 1538) [place] [address] POCT-GLUCOSE [id number] 17:10:00 Test Item Value Reference Range Interpretation Comments POC-GLUCOSE METER 109 mg/dL 70-110 TESTED AT [facility] [address] (BEAKER) (test code [facility] = 1538) [place] [address] POCT-GLUCOSE [id number] 12:15:00 Test Item Value Reference Range Interpretation Comments POC-GLUCOSE METER 116 mg/dL 70-110 H TESTED AT [facility] [address] (BEAKER) (test code [facility] = 1538) [place] [address] SPIN/CONCENTRATION [id number] 10:39:00 Test Item Value Reference Range Interpretation Comments CONCENTRATION CHARGED (BEAKER) (test Done code = 2657) CBC W/PLT COUNT & AUTO [id number] 09:22:00 Test Item Value Reference Range Interpretation [...] (test code = 2801) TYPE AND SCREEN, [id number] 08:18:00 Test Item Value Reference Range Interpretation Comments ABO/RH AUTOMATED (BEAKER) (test B POSITIVE code = 2260) AB SCREEN (BEAKER) (test code = NEGATIVE 923) ANAEROBIC [id number] 07:55:00 Test Item Value Reference Range Interpretation Comments CULTURE (BEAKER) (test No anaerobes isolated code = 1095) BASIC METABOLIC [id number] 05:40:00 Test Item Value Reference Range Interpretation [...] APPLICABLE FOR DIALYSIS PATIEN TS. BUN AND [id number] 05:37:00 Test Item Value Reference Range Interpretation [...] APPLICABLE FOR DIALYSIS PATIEN TS. VANCOMYCIN LEVEL, [id number] 05:36:00 Test Item Value Reference Range Interpretation Comments VANCOMYCIN TROUGH (BEAKER) (test 17.5 ug/mL 10.0-20.0 code = 522) HEMOGLOBIN AND [id number] 05:23:00 Test Item Value Reference Range Interpretation Comments HEMOGLOBIN (BEAKER) (test code = 6.4 GM/DL 12.0-15.5 L 410) HEMATOCRIT (BEAKER) (test code = 19.3 % 36.0-46.0 LL 411) POCT-GLUCOSE [id number] 16:12:00 Test Item Value Reference Range Interpretation Comments POC-GLUCOSE METER 129 mg/dL 70-110 H TESTED AT [facility] [address] (BEAKER) (test code [facility] = 1538) [place] [address] POCT-GLUCOSE [id number] 12:07:00 Test Item Value Reference Range Interpretation Comments POC-GLUCOSE METER 114 mg/dL 70-110 H TESTED AT [facility] [address] (BEAKER) (test code [facility] = 1538) [place] [address] POCT-GLUCOSE [id number] 10:00:00 Test Item Value Reference Range Interpretation Comments POC-GLUCOSE METER 97 mg/dL 70-110 TESTED AT [facility] [address] (BEAKER) (test code = [facility] 1538) [place] [address] SURGICALLY OBTAINED CULTURE + GRAM [id number] 09:36:00 Test Item Value Reference Range Interpretation Comments CULTURE (BEAKER) (test code No growth = 1095) GRAM STAIN RESULT (BEAKER) <1+ WBCs (test code = 1123) GRAM STAIN RESULT (BEAKER) No organisms seen (test code = 22926) POCT-GLUCOSE [id number] 06:06:00 Test Item Value Reference Range Interpretation Comments POC-GLUCOSE METER 105 mg/dL 70-110 TESTED AT [facility] [address] (BEAKER) (test code [facility] = 1538) [place] [address] BASIC METABOLIC [id number] 05:55:00 Test Item Value Reference Range Interpretation [...] PATIEN TS. CBC W/PLT COUNT & AUTO [id number] 05:35:00 Test Item Value Reference Range Interpretation [...] H GRANULOCYTES-RELATIVE PERCENT (BEAKER) (test code = 2804) POCT-GLUCOSE [id number] 21:11:00 Test Item Value Reference Range Interpretation Comments POC-GLUCOSE METER 94 mg/dL 70-110 TESTED AT [facility] [address] (BEAKER) (test code = [facility] 1538) [place] [address] POCT-GLUCOSE [id number] 16:51:00 Test Item Value Reference Range Interpretation Comments POC-GLUCOSE METER 121 mg/dL 70-110 H TESTED AT [facility] [address] (BEAKER) (test code [facility] = 1538) [place] [address] POCT-GLUCOSE [id number] 15:10:00 Test Item Value Reference Range Interpretation Comments POC-GLUCOSE METER 97 mg/dL 70-110 TESTED AT [facility] [address] (BEAKER) (test code = [facility] 153) [place] [address] [id number] 10:17:00 Test Item Value Reference Range Interpretation Comments PROCALCITONIN (BEAKER) (test code 1.41 ng/mL <0.05 H = 3036) SEPSIS RISK (ng/mL)Low: 0.05-0.50Intermediate: 0.51-2.00High: >=2.01HEPATIC FUNCTION [id number] 09:52:00 Test Item Value Reference Range Interpretation [...] code = 12 U/L 6-50 347) POCT-GLUCOSE [id number] 05:57:00 Test Item Value Reference Range Interpretation Comments POC-GLUCOSE METER 87 mg/dL 70-110 TESTED AT [facility] [address] (BEAKER) (test code = [facility] 153) [place] [address] BASIC METABOLIC [id number] 05:34:00 Test Item Value Reference Range Interpretation [...] PATIEN TS. CBC W/PLT COUNT & AUTO [id number] 05:33:00 Test Item Value Reference Range Interpretation [...] (BEAKER) (test code = 2801) BUN AND [id number] 05:32:00 Test Item Value Reference Range Interpretation Comments BLOOD UREA NITROGEN 21 mg/dL 10-26 (BEAKER) (test code = 354) CREATININE (BEAKER) 0.79 mg/dL 0.50-1.20 (test code = 358) EGFR (BEAKER) (test 91 mL/min/1.73 ESTIMA YUMIKO GFR IS code = 1092) sq m NOT ACCURATE CREATININE CLEARANCE IN PREDICTING GLOMERULAR FILTRATION RATE . ESTIMATED GFR I S NOT APPLICABLE FOR DIALYSIS PATIEN TS. BLOOD [id number] 04:00:00 Test Item Value Reference Range Interpretation Comments CULTURE (BEAKER) (test No growth in 5 days code = 1095) BLOOD [id number] 01:00:00 Test Item Value Reference Range Interpretation Comments CULTURE (BEAKER) (test No growth in 5 days code = 1095) POCT-GLUCOSE [id number] 21:25:00 Test Item Value Reference Range Interpretation Comments POC-GLUCOSE METER 135 mg/dL 70-110 H TESTED AT [facility] [id number] ([facility]) (test code [facility] = 1538) [place] [address] ANG, NON-TUNNELED CATH/PICC >5 Y.O.2017-11-12 17:59:00Reason for [...] MDReport Verified Date/Time: 11/12/2017 17:59:19 Reading Location: [facility] Radiology Reading Room POCT-GLUCOSE [id number] 16:37:00 Test Item Value Reference Range Interpretation Comments POC-GLUCOSE METER 98 mg/dL 70-110 TESTED AT [facility] [address] ([facility]) (test code = [facility] 1538) [place] [address] PERIPHERAL BLOOD SMEAR - PATH REVIEW LAB [id number] 08:14:00 Test Item Value Reference Range Interpretation Comments PERIPHERAL SMR REVIEW Neutrophilic ([facility] [facility]) (test code = leukocytosis and 2640) microcytic anemia. No blast forms seen. [id number] Nazario Becker M.D. (BEAKER) (test code = (electronic signature) 1320) (MANUAL DIFFERENTIAL)2017-11-12 08:12:00 Test Item Value Reference [...] few 963) BODY FLUID CULTURE + GRAM [id number] 08:10:00 Test Item Value Reference Range Interpretation Comments CULTURE (BEAKER) (test No growth code = 1095) GRAM STAIN RESULT 3+ White blood cells (BEAKER) (test code = seen 1123) GRAM STAIN RESULT No organisms seen (BEAKER) (test code = 22615) POCT-GLUCOSE [id number] 06:18:00 Test Item Value Reference Range Interpretation Comments POC-GLUCOSE METER 113 mg/dL 70-110 H TESTED AT [facility] [address] (BEAKER) (test code [facility] = 1538) [place] [address] CBC W/PLT COUNT & AUTO [id number] 04:40:00 Test Item Value Reference Range Interpretation [...] (BEAKER) (test code = 2801) BASIC METABOLIC [id number] 03:56:00 Test Item Value Reference Range Interpretation [...] APPLICABLE FOR DIALYSIS PATIEN TS. BUN AND [id number] 03:55:00 Test Item Value Reference Range Interpretation Comments BLOOD UREA NITROGEN 19 mg/dL 10-26 (BEAKER) (test code = 354) CREATININE (BEAKER) 0.81 mg/dL 0.50-1.20 (test code = 358) EGFR (BEAKER) (test 88 mL/min/1.73 ESTIMA YUMIKO GFR IS code = 1092) sq m NOT ACCURATE CREATININE CLEARANCE IN PREDICTING GLOMERULAR FILTRATION RATE . ESTIMATED GFR I S NOT APPLICABLE FOR DIALYSIS PATIEN TS. POCT-GLUCOSE [id number] 20:51:00 Test Item Value Reference Range Interpretation Comments POC-GLUCOSE METER 151 mg/dL 70-110 H TESTED AT [facility] [address] (BEAKER) (test code [facility] = 1538) [place] [address] POCT-GLUCOSE [id number] 17:20:00 Test Item Value Reference Range Interpretation Comments POC-GLUCOSE METER 101 mg/dL 70-110 TESTED AT [facility] [address] (BEAKER) (test code [facility] = 1538) [place] [address] SPIN/CONCENTRATION [id number] 15:42:00 Test Item Value Reference Range Interpretation Comments CONCENTRATION CHARGED (BEAKER) (test Done code = 2657) POCT-GLUCOSE [id number] 11:34:00 Test Item Value Reference Range Interpretation Comments POC-GLUCOSE METER 109 mg/dL 70-110 TESTED AT [facility] [address] (BEAKER) (test code [facility] = 1538) [place] [address] VANCOMYCIN LEVEL, [id number] 09:14:00 Test Item Value Reference Range Interpretation Comments VANCOMYCIN TROUGH (BEAKER) (test 10.6 ug/mL 10.0-20.0 code = 522) BASIC METABOLIC [id number] 05:59:00 Test Item Value Reference Range Interpretation [...] APPLICABLE FOR DIALYSIS PATIEN TS. BUN AND [id number] 05:58:00 Test Item Value Reference Range Interpretation Comments BLOOD UREA NITROGEN 17 mg/dL 10-26 (BEAKER) (test code = 354) CREATININE (BEAKER) 0.80 mg/dL 0.50-1.20 (test code = 358) EGFR (BEAKER) (test 90 mL/min/1.73 ESTIMA YUMIKO GFR IS code = 1092) sq m NOT ACCURATE CREATININE CLEARANCE IN PREDICTING GLOMERULAR FILTRATION RATE . ESTIMATED GFR I S NOT APPLICABLE FOR DIALYSIS PATIEN TS. POCT-GLUCOSE [id number] 05:49:00 Test Item Value Reference Range Interpretation Comments POC-GLUCOSE METER 121 mg/dL 70-110 H TESTED AT [facility] [address] ([facility]) (test code [facility] = 1538) [place] [address] CBC W/PLT COUNT & AUTO [id number] 05:43:00 Test Item Value Reference Range Interpretation [...] PERCENT (BEAKER) (test code = 2801) POCT-GLUCOSE [id number] 00:07:00 Test Item Value Reference Range Interpretation Comments POC-GLUCOSE METER 150 mg/dL 70-110 H TESTED AT [facility] [address] [facility] (test code [facility] = 1538) [place] [address] RAD, HIP, 1 VIEW, [id number] 23:51:00Reason for exam:->postopFINAL REPORT Right hip. HISTORY: Postoperative. COMPARISON STUDY: October 29, 2017. FINDINGS: A single frontal view of the right hip demonstrates a hemiarthroplasty in place. No cement is identified. There is no evidence of fracture or malalignment on this single projection. Signed: Alexandrea Martines MDReport Verified Date/Time: 11/10/2017 23:51:24 Reading Location: [facility] B1 [id number] Ortho Consult Reading Room RAD, PELVIS, 1 OR 2 [id number] 23:22:00Reason for exam:->Hip ArthroplastyReason for exam:->X-Table Lateral [...] MDReport Verified Date/Time: 11/10/2017 23:22:52 Reading Location: [facility] C0X Ortho Consult Reading Room POCT-GLUCOSE [id number] 22:54:00 Test Item Value Reference Range Interpretation Comments POC-GLUCOSE METER 140 mg/dL 70-110 H TESTED AT [address] ([facility] (test code [facility] = 1538) [place] [address] POCT-GLUCOSE [id number] 16:57:00 Test Item Value Reference Range Interpretation Comments POC-GLUCOSE METER 98 mg/dL 70-110 TESTED AT [address] ([facility] (test code = [facility] 1538) [place] [address] POCT-GLUCOSE [id number] 12:41:00 Test Item Value Reference Range Interpretation Comments POC-GLUCOSE METER 111 mg/dL 70-110 H TESTED AT [address] ([facility] (test code [facility] = 1538) [place] [address] (MANUAL DIFFERENTIAL)2017-11-10 07:35:00 Test Item Value Reference [...] = 762) CBC W/PLT COUNT & AUTO [id number] 07:32:00 Test Item Value Reference Range Interpretation [...] 0-0 CELLS (BEAKER) (test code = 413) [id number] 07:25:00 Test Item Value Reference Range Interpretation Comments PHOSPHORUS (BEAKER) (test code = 3.5 mg/dL 2.5-4.5 604) [id number] 07:25:00 Test Item Value Reference Range Interpretation Comments MAGNESIUM (BEAKER) (test code = 1.7 mg/dL 1.5-3.0 627) BASIC METABOLIC [id number] 07:25:00 Test Item Value Reference Range Interpretation [...] NOT APPLICABLE FOR DIALYSIS PATIEN TS. POCT-GLUCOSE [id number] 06:45:00 Test Item Value Reference Range Interpretation Comments POC-GLUCOSE METER 121 mg/dL 70-110 H TESTED AT [facility] [address] (BEAKER) (test code [facility] = 1538) [place] [address] POCT-GLUCOSE [id number] 22:14:00 Test Item Value Reference Range Interpretation Comments POC-GLUCOSE METER 124 mg/dL 70-110 H TESTED AT [facility] [address] (BEAKER) (test code [facility] = 1538) [place] [address] VANCOMYCIN LEVEL, [id number] 21:02:00 Test Item Value Reference Range Interpretation Comments VANCOMYCIN TROUGH (BEAKER) (test 9.6 ug/mL 10.0-20.0 L code = 522) POCT-GLUCOSE [id number] 17:22:00 Test Item Value Reference Range Interpretation Comments POC-GLUCOSE METER 98 mg/dL 70-110 TESTED AT [facility] [address] ([facility] (test code = [facility] 1532) [place] [address] POCT-GLUCOSE [id number] 11:36:00 Test Item Value Reference Range Interpretation Comments POC-GLUCOSE METER 127 mg/dL 70-110 H TESTED AT [facility] [address] (BEAKER) (test code [facility] = 1538) [place] [address] WOUND CULTURE + GRAM [id number] 11:05:00 Test Item Value Reference Interpretation Comments Range CULTURE ([facility]) (test ENTEROBACTER A <1+ E nterobacter code [...] No organisms seen (AKER) (test code = 339658) POCT-GLUCOSE [id number] 05:54:00 Test Item Value Reference Range Interpretation Comments POC-GLUCOSE METER 116 mg/dL 70-110 H TESTED AT [facility] [address] (BEAKER) (test code [facility] = 1538) [place] [address] [id number] 03:42:00 Test Item Value Reference Range Interpretation Comments PHOSPHORUS (BEAKER) (test code = 3.8 mg/dL 2.5-4.5 604) [id number] 03:42:00 Test Item Value Reference Range Interpretation Comments MAGNESIUM (BEAKER) (test code = 1.9 mg/dL 1.5-3.0 627) BASIC METABOLIC [id number] 03:42:00 Test Item Value Reference Range Interpretation [...] PATIEN TS. CBC W/PLT COUNT & AUTO [id number] 03:21:00 Test Item Value Reference Range Interpretation [...] PERCENT (BEAKER) (test code = 2801) POCT-GLUCOSE [id number] 20:55:00 Test Item Value Reference Range Interpretation Comments POC-GLUCOSE METER 122 mg/dL 70-110 H TESTED AT [facility] [address] (BEAKER) (test code [facility] = 1538) [place] [address] POCT-GLUCOSE [id number] 16:19:00 Test Item Value Reference Range Interpretation Comments POC-GLUCOSE METER 136 mg/dL 70-110 H TESTED AT [facility] [address] (BEAKER) (test code [facility] = 1538) [place] [address] HEMOGLOBIN AND [id number] 14:19:00 Test Item Value Reference Range Interpretation Comments HEMOGLOBIN (BEAKER) (test code = 8.1 GM/DL 12.0-15.5 L 410) HEMATOCRIT (BEAKER) (test code = 24.9 % 36.0-46.0 L 411) POCT-GLUCOSE [id number] 12:13:00 Test Item Value Reference Range Interpretation Comments POC-GLUCOSE METER 142 mg/dL 70-[address] [place] [address] [address] (BEAKER) (test code [facility] = 1538) [place] [address] POCT-GLUCOSE [id number] 06:02:00 Test Item Value Reference Range Interpretation Comments POC-GLUCOSE METER 109 mg/dL 70-110 TESTED AT [facility] [address] (BEAKER) (test code [facility] = 1538) [place] [address] POCT-GLUCOSE [id number] 05:38:00 Test Item Value Reference Range Interpretation Comments POC-GLUCOSE METER 150 mg/dL 70-110 H TESTED AT [facility] [address] (BEAKER) (test code [facility] = 1538) [place] [address] TYPE AND SCREEN, [id number] 03:11:00 Test Item Value Reference Range Interpretation Comments ABO/RH AUTOMATED (BEAKER) (test B Positive code = 2260) AB SCREEN (BEAKER) (test code = Negative 923) HEMOGLOBIN AND [id number] 02:41:00 Test Item Value Reference Range Interpretation Comments HEMOGLOBIN (BEAKER) (test code = 5.9 GM/DL 12.0-15.5 LL 410) HEMATOCRIT (BEAKER) (test code = 18.2 % 36.0-46.0 LL 411) COMPREHENSIVE METABOLIC [id number] 01:43:00 Test Item Value Reference Range Interpretation [...] S NOT APPLICABLE FOR DIALYSIS PATIEN TS. [id number] 01:36:00 Test Item Value Reference Range Interpretation Comments PHOSPHORUS (BEAKER) (test code = 3.3 mg/dL 2.5-4.5 604) [id number] 01:36:00 Test Item Value Reference Range Interpretation Comments MAGNESIUM (BEAKER) (test code = 1.9 mg/dL 1.5-3.0 627) LACTIC ACID, VENOUS, WHOLE [id number] 01:29:00 Test Item Value Reference Range Interpretation Comments LACTATE BLOOD VENOUS (2) (BEAKER) 0.8 mmol/L 0.5-2.2 (test code = 2872) Effective 07/19/2015: Units/Reference Range ChangeNew: 0.5-2.2 mmol/L Previous: 5-20 mg/dLCBC W/PLT COUNT & AUTO [id number] 01:25:00 Test Item Value Reference Range Interpretation [...] PERCENT (BEAKER) (test code = 2801) POCT-GLUCOSE [id number] 21:52:00 Test Item Value Reference Range Interpretation Comments POC-GLUCOSE METER 113 mg/dL 70-110 H TESTED AT [facility] [address] (BEAKER) (test code [place] [facility] = 1538) [place] [address] CT, EXTREMITY, LOWER WITHOUT CONTRAST, [id number] 19:15:00FINAL REPORT CT scan of the right [...] Martines Verified Date/Time: 11/07/2017 19:15:59 Reading Location: [address] Consult Reading Room RAD, HIP, 2 VIEWS, [id number] 16:19:00Reason for exam:->HIP PAIN FINAL REPORT INDICATION:Right [...] Singletary Verified Date/Time: 11/07/2017 16:19:47 Reading Location: [facility] Women CBC W/PLT COUNT & AUTO [id number] 16:00:00 Test Item Value Reference Range Interpretation [...] (BEAKER) (test code Normal = 762) C-REACTIVE [id number] 15:30:00 Test Item Value Reference Range Interpretation Comments C-REACTIVE PROTEIN (BEAKER) (test 47.39 mg/dL 0.00-0.50 H code = 676) COMPREHENSIVE METABOLIC [id number] 15:30:00 Test Item Value Reference Range Interpretation [...] APPLICABLE FOR DIALYSIS PATIEN TS. BASIC METABOLIC [id number] 06:26:00 Test Item Value Reference Range Interpretation [...] PATIEN TS. CBC W/PLT COUNT & AUTO [id number] 06:12:00 Test Item Value Reference Range Interpretation [...] L 0.00-0.20 (test code = 417) POCT-GLUCOSE [id number] 05:55:00 Test Item Value Reference Range Interpretation Comments POC-GLUCOSE METER 120 mg/dL 70-110 H TESTED AT [facility] [address] (BEAKER) (test code [facility] = 1538) [place] [address] POCT-GLUCOSE [id number] 21:07:00 Test Item Value Reference Range Interpretation Comments POC-GLUCOSE METER 121 mg/dL 70-110 H TESTED AT [facility] [address] (BEAKER) (test code [facility] = 1538) [place] [address] POCT-GLUCOSE [id number] 17:45:00 Test Item Value Reference Range Interpretation Comments POC-GLUCOSE METER 131 mg/dL 70-110 H TESTED AT [facility] [address] (BEAKER) (test code [facility] = 1538) [place] [address] HEMOGLOBIN AND [id number] 14:26:00 Test Item Value Reference Range Interpretation Comments HEMOGLOBIN (BEAKER) (test code = 7.9 GM/DL 12.0-15.0 L 410) HEMATOCRIT (BEAKER) (test code = 24.6 % 36.0-45.0 L 411) POCT-GLUCOSE [id number] 11:22:00 Test Item Value Reference Range Interpretation Comments POC-GLUCOSE METER 134 mg/dL 70-[place] [address] [address] (BEAKER) (test code [facility] = 1538) [place] [address] BASIC METABOLIC [id number] 05:16:00 Test Item Value Reference Range Interpretation [...] APPLICABLE FOR DIALYSIS PATIEN TS. Specimen recollected. [id number] 04:56:00 Test Item Value Reference Range Interpretation Comments POC-GLUCOSE METER 141 mg/dL 70-110 H TESTED AT [facility] [address] (BEAKER) (test code [facility] = 1538) [place] [address] HEMOGLOBIN AND [id number] 04:10:00 Test Item Value Reference Range Interpretation [...] few 965) CBC W/PLT COUNT & AUTO [id number] 21:34:00 Test Item Value Reference Range Interpretation [...] 6.5-10.5 (BEAKER) (test code = 754) POCT-GLUCOSE [id number] 21:17:00 Test Item Value Reference Range Interpretation Comments POC-GLUCOSE METER 126 mg/dL 70-110 H TESTED [facility] [address] (BEAKER) (test code [facility] = 1538) [place] [address] POCT-GLUCOSE [id number] 18:04:00 Test Item Value Reference Range Interpretation Comments POC-GLUCOSE METER 117 mg/dL 70-110 H TESTED AT [facility] [address] (BEAKER) (test code [facility] = 1538) [place] [address] POCT-GLUCOSE [id number] 11:38:00 Test Item Value Reference Range Interpretation Comments POC-GLUCOSE METER 133 mg/dL 70-110 H TESTED AT [facility] [address] (BEAKER) (test code [facility] = 1538) [place] [address] BASIC METABOLIC [id number] 04:20:00 Test Item Value Reference Range Interpretation [...] APPLICABLE FOR DIALYSIS PATIEN TS. HEMOGLOBIN AND [id number] 04:11:00 Test Item Value Reference Range Interpretation Comments HEMOGLOBIN (BEAKER) (test code = 8.1 GM/DL 12.0-15.0 L 410) HEMATOCRIT (BEAKER) (test code = 25.6 % 36.0-45.0 L 411) POCT-GLUCOSE [id number] 04:03:00 Test Item Value Reference Range Interpretation Comments POC-GLUCOSE METER 151 mg/dL 70-110 H TESTED AT [facility] [address] ([facility]) (test code [facility] = 1538) [place] [address] RAD, HIP, 1 VIEW, [id number] 21:16:00Reason for exam:->postopShould this be performed at [...] [place] Verified Date/Time: 10/29/2017 21:16:21 Reading Location: [facility] C0T [facility] Re ading Room POCT-GLUCOSE [id number] 20:20:00 Test Item Value Reference Range Interpretation Comments POC-GLUCOSE METER 76 mg/dL 70-110 TESTED AT [facility] [address] (BEAKER) (test [facility] 1538) [place] [address] POCT-GLUCOSE [id number] 15:13:00 Test Item Value Reference Range Interpretation Comments POC-GLUCOSE METER 150 mg/dL 70-110 H TESTED AT [facility] [address] (BEAKER) (test code [facility] = 1538) [place] [address] RAD, HIP, OPERATIVE, [id number] 14:41:00Reason for exam:->RequiredFINAL REPORT RIGHT HIP ONE VIEW HISTORY: Right hip pain, right hip arthroplasty COMPARISON: None FINDINGS: Single intraoperative image of the right hip/low pelvis shows in progress changes of right hip total arthroplasty. A reamer is present in the proximal right femur. The acetabular region is obscured by overlying hardware. Signed: Ceci Aldrich Verified Date/Time: 10/29/2017 14:41:51 Reading Location: [facility] Radiology Reading Room POCT- GLUCOSE [id number] 09:53:00 Test Item Value Reference Range Interpretation Comments POC-GLUCOSE METER 104 mg/dL 70-110 TESTED AT [facility] [address] [facility] (test code [facility] = 1538) [place] [address] BASIC METABOLIC [id number] 12:23:00 Test Item Value Reference Range Interpretation [...] APPLICABLE FOR DIALYSIS PATIEN TS. URINALYSIS W/ [id number] 12:21:00 Test Item Value Reference Range Interpretation [...] code = 1663) SOURCE(BEAKER) (test code = 6925) CBC W/PLT COUNT & AUTO [id number] 12:18:00 Test Item Value Reference Range Interpretation [...] L 0.00-0.20 (test code = 417) MRSA [id number] 08:33:00 Test Item Value Reference Range Interpretation Comments CULTURE (BEAKER) (test code No MRSA isolated = 1095)
[2021-05-04] MEDS ORDERED: HYDROMORPHONE HCL 2 MG/ML inj ONE ×3 (16:14→18:47)
[2021-05-04] MEDS ORDERED: ONDANSETRON 4 MG/2 ML VIAL ONE (16:14)
--- NOTE | 2021-05-04 16:16 | RAD REPORT ---
EXAM DESCRIPTION: Claudia Single View05/04/2021 3:59 pm CLINICAL HISTORY: Chest pain COMPARISON: March 2021 FINDINGS: The lungs appear clear of acute infiltrate. The heart is moderately enlarged . Upper lobe vessels are prominent indicative of pulmonary venous hypertension
[2021-05-04 16:22] LABS: Absolute Lymphocytes (CBC) 0.7 K/uL (0.7-4.9); Hematocrit 23.5 % (36.0-45.0); Lymphocytes % 11.7 % (15.3-44.8); MPV 7.2 fL (7.6-11.3); RBC Red Blood Cell Count 2.77 M/uL (3.86-4.86)
[2021-05-04 16:24] LABS: Protime INR 1.16
[2021-05-04 17:01] LABS: Albumin 2.2 g/dL (3.4-5.0); Bilirubin Direct 0.2 mg/dL (0-0.2); Bilirubin Total 0.5 mg/dL (0.2-1.0); Magnesium 1.8 mg/dL (1.8-2.4); Protein, Total 6.7 g/dL (6.4-8.2); Troponin High Sensitivity 26.6 pg/mL (<58.9)
[2021-05-04 17:06] LABS: Potassium 2.3 mmol/L (3.5-5.1)
[2021-05-04] MEDS ORDERED: POTASSIUM CL SA 10 MEQ TAB PO ONE (17:58)
[2021-05-04] MEDS ORDERED: KCL 20 MEQ/100 mL IVPB 100 ML IV ONE ×2 (17:59→18:13)
[2021-05-04] MEDS ORDERED: NA CHLORIDE 0.9% 500 ML ONE (18:09)
[2021-05-04] MEDS ORDERED: CALCIUM CARBONATE 500 MG TAB PO ONE (19:00)
--- NOTE | 2021-05-04 19:09 | EDPHYS ---
Physician Documentation [facility] Name: Sade Galdamez Age: 61 yrs Sex: Female : 1960 Arrival Date: 05/04/2021 Time: 15:05 Bed 27 Private MD: ED Physician Nolberto Richardson HPI: 05/04 19:35 This 61 yrs old Black Female presents to ER via EMS with complaints of pain. kb 19:35 Pt presents for chronic left groin and chest pain. States she takes Dilaudid 4mg po and kb wears a fentanyl patch at home, but the medications weren't working today. . Onset: The symptoms/episode began/occurred chronic . Severity of symptoms: At their worst the symptoms were moderate in the emergency department the symptoms are unchanged. The patient has experienced similar episodes in the past, chronically. The patient has not recently seen a physician. Pt states this pain is no different than her normal chronic pain. . 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 - Social history:: Smoking status: Patient denies any tobacco usage or history of. ROS: 19:34 Constitutional: Negative for fever, chills, and weight loss. kb 19:34 Cardiovascular: Positive for chest pain. 19:34 Abdomen/GI: Positive for abdominal pain, of the left lower quadrant. 19:34 All other systems are negative. Exam: 19:35 Constitutional: This is a well developed, well nourished patient who is awake, alert, kb and in no acute distress. Head/Face: Normocephalic, atraumatic. ENT: Moist Mucous membranes Cardiovascular: Regular rate and rhythm with a normal S1 and S2. No gallops, murmurs, or rubs. No pulse deficits. Respiratory: Respirations even and unlabored. No increased work of breathing. Talking in full sentences Abdomen/GI: Soft, non-tender. No distention Skin: Warm, dry with normal turgor. Normal color. MS/ Extremity: Pulses equal, no cyanosis. Neurovascular intact. Full, normal range of motion. Neuro: Awake and alert, GCS 15, oriented to person, place, time, and situation. Moves all extremities. Normal gait. Psych: Awake, alert, with orientation to person, place and time. Behavior, mood, and affect are within normal limits. Vital Signs: 15:05 BP 140 / 88; Pulse 95; Resp 18; Temp 98.0(O); Pulse Ox 98% on R/A; Weight 154.22 kg; ab2 Height 5 ft. 5 in. (165.10 cm); Pain 10/10; 16:17 BP 139 / 92; Pulse 99; Resp 18; Pulse Ox 99% on R/A; ab2 16:58 Pain 10/10; ss7 17:05 BP 142 / 78; Pulse 98; Resp 18; Pulse Ox 98% ; Pain 6/10; ss7 18:22 BP 148 / 85; Pulse 92; Resp 18; Pulse Ox 96% on R/A; ss7 19:00 BP 149 / 90; Pulse 92; Resp 18; Pulse Ox 97% ; ss7 20:00 BP 156 / 90; Pulse 100; Resp 18; Pulse Ox 95% on R/A; Pain 8/10; ss7 20:55 BP 156 / 90; Pulse 97; Resp 16; Pulse Ox 98% on R/A; ab2 15:05 Body Mass Index 56.58 (154.22 kg, 165.10 cm) ab2 MDM: 15:21 Patient medically screened. kb 19:34 Data reviewed: vital signs, nurses notes. Data interpreted: Pulse oximetry: on room air kb is 97 %. Interpretation: normal. Counseling: I had a detailed discussion with the patient and/or guardian regarding: the historical points, exam findings, and any diagnostic results supporting the discharge/admit diagnosis, lab results, radiology results, the need for outpatient follow up, a family practitioner, to return to the emergency department if symptoms worsen or persist or if there are any questions or concerns that arise at home. 19:37 ED course: Pt comfortable after medications. . kb 05/04 15:26 Order name: Basic Metabolic Panel; Complete Time: 17:26 kb 05/04 15:26 Order name: CBC with Diff; Complete Time: 16:37 kb 05/04 15:26 Order name: LFT's; Complete Time: 17:26 kb 05/04 15:26 Order name: Magnesium; Complete Time: 17:26 kb 05/04 15:26 Order name: NT PRO-BNP; Complete Time: 17:26 kb 05/04 15:26 Order name: PT-INR; Complete Time: 16:24 kb 05/04 15:26 Order name: Troponin HS; Complete Time: 17:26 kb 05/04 15:26 Order name: XRAY Chest (1 view); Complete Time: 16:19 kb 05/04 15:26 Order name: EKG; Complete Time: 15:26 kb 05/04 15:26 Order name: Cardiac monitoring; Complete Time: 15:33 kb 05/04 15:26 Order name: EKG - Nurse/Tech; Complete Time: 15:33 kb 05/04 15:26 Order name: IV Saline Lock; Complete Time: 16:17 kb 05/04 15:26 Order name: Labs collected and sent; Complete Time: 16:17 kb 05/04 15:26 Order name: O2 Per Protocol; Complete Time: 15:33 kb 05/04 15:26 Order name: O2 Sat Monitoring; Complete Time: 15:33 kb Administered Medications: 16:16 Drug: Zofran (Ondansetron) 4 mg Route: IVP; Site: right wrist; ab2 16:58 Follow up: Response: No adverse reaction ss7 16:17 Drug: Dilaudid (HYDROmorphone) 1 mg Route: IVP; Site: right wrist; ab2 16:58 Follow up: Pain 10/10 Adult; Response: No adverse reaction ss7 16:55 Drug: Dilaudid (HYDROmorphone) 1 mg Route: IVP; Site: right wrist; ss7 16:59 Follow up: Response: No adverse reaction ss7 18:06 Drug: Potassium Chloride 40 mEq Route: PO; ss7 19:35 Follow up: Response: No adverse reaction ss7 18:21 Drug: Potassium Chloride 20 mEq Route: IV; Rate: calculated rate; Site: right wrist; ss7 18:21 Drug: NS 0.9% 100 ml {Note: hung with KCL..} Route: IV; Rate: 50 ml/hr; Infused Over: 2 ss7 hrs; Site: right wrist; 19:35 Follow up: Response: No adverse reaction ss7 18:43 Drug: Calcium Carbonate 500 mg Route: PO; ab2 19:35 Follow up: Response: No adverse reaction ss7 18:47 Drug: Dilaudid (HYDROmorphone) 2 mg Route: IVP; Site: right wrist; ab2 19:35 Follow up: Response: No adverse reaction ss7 Disposition: 05/05 07:09 Co-signature as Attending Physician, Nolberto Richardson MD I agree with the assessment and rn plan of care. Attestation: The patient's history, exam findings, diagnostics, and a summary of any interventions or procedures was reviewed in detail with Fabiola MICHAELS. Disposition Summary: 05/04/21 19:08 Discharge Ordered Location: Home kb Condition: Stable kb Diagnosis - Chronic pain syndrome kb - Hypokalemia kb - Hypocalcemia kb Followup: kb - With: Emergency Department - When: As needed - Reason: Worsening of condition Followup: kb - With: Private Physician - When: 2 - 3 days - Reason: Recheck today's complaints, Continuance of care, Re-evaluation by your physician Discharge Instructions: - Discharge Summary Sheet kb - Chronic Pain, Adult kb - Hypokalemia kb Forms: - Medication Reconciliation Form kb - Thank You Letter kb - Antibiotic Education kb - Prescription Opioid Use kb Signatures: Dispatcher [employer] Fabiola Whyte FNP-C FNP-Nolberto Harman MD MD rn Bleininger, Alexis ab2 Smith, Shana, RN RN ss7
--- NOTE | 2021-05-04 19:09 | ER ---
Nurse's Notes [facility] Name: Sade Galdamez Age: 61 yrs Sex: Female : 1960 Arrival Date: 05/04/2021 Time: 15:05 Bed 27 Private MD: Diagnosis: Chronic pain syndrome;Hypokalemia;Hypocalcemia Presentation: 05/04 15:05 Chief complaint: Patient states: "I have pain in my left hip, both legs and my chest. ab2 My medications at home are not helping." Pt has a tumor on left hip. Coronavirus screen: Vaccine status: Patient reports receiving the 2nd dose of the covid vaccine. Client denies travel out of the [place] in the last 14 days. At this time, the client does not indicate any symptoms associated with coronavirus-19. Ebola Screen: Patient negative for fever greater than or equal to 101.5 degrees Fahrenheit, and additional compatible Ebola Virus Disease symptoms Patient denies exposure to infectious person. Patient denies travel to an Ebola-affected area in the 21 days before illness onset. No symptoms or risks identified at this time. Initial Sepsis Screen: Does the patient meet any 2 criteria? No. Patient's initial sepsis screen is negative. Does the patient have a suspected source of infection? No. Patient's initial sepsis screen is negative. Risk Assessment: Do you want to hurt yourself or someone else? Patient reports no desire to harm self or others. Onset of symptoms is unknown. 15:05 Method Of Arrival: EMS: [facility] ab2 15:05 Acuity: ABDIRIZAK 3 ab2 Historical: - Allergies: 15:07 Iodinated Contrast Media - IV Dye; ab2 15:07 iopamidol; ab2 - PMHx: 15:07 breast cancer; chemotherapy; Hypertension; Tumor to groin area; ab2 - PSHx: 15:07 ovi mastectomy; hysterectomy; ab2 - Immunization history:: Adult Immunizations up to date, Client reports receiving the 2nd dose of the Covid vaccine, Pneumococcal vaccine is not up to date, Flu vaccine is up to date. - Social history:: Smoking status: Patient denies any tobacco usage or history of. Screenin:09 Abuse screen: Denies threats or abuse. Denies injuries from another. Nutritional ab2 screening: No deficits noted. Tuberculosis screening: No symptoms or risk factors identified. Fall Risk None identified. Assessment: 15:08 General: Appears in no apparent distress. comfortable, Behavior is calm, cooperative, ab2 appropriate for age. Pain: Complains of pain in chest, left hip, right leg and left leg Pain currently is 10 out of 10 on a pain scale. Neuro: Level of Consciousness is awake, alert, obeys commands, Oriented to person, place, time, situation, Appropriate for age Oil Well Driller are equal bilaterally Weakness Gait is steady, Speech is normal. Cardiovascular: Reports chest pain, Denies shortness of breath, Heart tones S1 S2 present Patient's skin is warm and dry. Respiratory: Airway is patent Respiratory effort is even, unlabored, Respiratory pattern is regular, symmetrical. GI: Abdomen is obese, Bowel sounds present X 4 quads. : No deficits noted. No signs and/or symptoms were reported regarding the genitourinary system. EENT: No deficits noted. No signs and/or symptoms were reported regarding the EENT system. Derm: No deficits noted. No signs and/or symptoms reported regarding the dermatologic system. Skin is intact, is healthy with good turgor, Skin is dry. 19:27 Reassessment: Pt discharged pending completion of Kcl infusion.. ss7 Vital Signs: 15:05 BP 140 / 88; Pulse 95; Resp 18; Temp 98.0(O); Pulse Ox 98% on R/A; Weight 154.22 kg; ab2 Height 5 ft. 5 in. (165.10 cm); Pain 10/10; 16:17 BP 139 / 92; Pulse 99; Resp 18; Pulse Ox 99% on R/A; ab2 16:58 Pain 10/10; ss7 17:05 BP 142 / 78; Pulse 98; Resp 18; Pulse Ox 98% ; Pain 6/10; ss7 18:22 BP 148 / 85; Pulse 92; Resp 18; Pulse Ox 96% on R/A; ss7 19:00 BP 149 / 90; Pulse 92; Resp 18; Pulse Ox 97% ; ss7 20:00 BP 156 / 90; Pulse 100; Resp 18; Pulse Ox 95% on R/A; Pain 8/10; ss7 20:55 BP 156 / 90; Pulse 97; Resp 16; Pulse Ox 98% on R/A; ab2 15:05 Body Mass Index 56.58 (154.22 kg, 165.10 cm) ab2 ED Course: 15:05 Patient arrived in ED. ab2 15:07 Triage completed. ab2 15:09 Arm band placed on right wrist. ab2 15:09 No provider procedures requiring assistance completed. ab2 15:10 Patient has correct armband on for positive identification. Bed in low position. Call ab2 light in reach. Side rails up X2. 15:21 Fabiola Parra FNP-C [facility]. kb 15:21 Nolberto Richardson MD is Attending Physician. kb 15:59 XRAY Chest (1 view) In Process Unspecified. EDMS 16:00 Missed attempt(s): 22 gauge in right forearm. Bleeding controlled, band aid applied, ss catheter tip intact. 16:05 Missed attempt(s): 24 gauge in left wrist. Bleeding controlled, band aid applied, ss catheter tip intact. 16:09 Guillaume Newman is Primary Nurse. ab2 16:15 Inserted saline lock: 24 gauge in right wrist, using aseptic technique. Blood collected.ab2 16:17 Basic Metabolic Panel Sent. ab2 16:17 CBC with Diff Sent. ab2 16:17 LFT's Sent. ab2 16:17 Magnesium Sent. ab2 16:17 NT PRO-BNP Sent. ab2 16:17 PT-INR Sent. ab2 16:17 Troponin HS Sent. ab2 18:09 Inserted saline lock: 20 gauge in right in left wrist, using aseptic technique. tp1 20:56 IV discontinued, intact, bleeding controlled, No redness/swelling at site. Pressure ab2 dressing applied. Administered Medications: 16:16 Drug: Zofran (Ondansetron) 4 mg Route: IVP; Site: right wrist; ab2 16:58 Follow up: Response: No adverse reaction ss7 16:17 Drug: Dilaudid (HYDROmorphone) 1 mg Route: IVP; Site: right wrist; ab2 16:58 Follow up: Pain 10/10 Adult; Response: No adverse reaction ss7 16:55 Drug: Dilaudid (HYDROmorphone) 1 mg Route: IVP; Site: right wrist; ss7 16:59 Follow up: Response: No adverse reaction ss7 18:06 Drug: Potassium Chloride 40 mEq Route: PO; ss7 19:35 Follow up: Response: No adverse reaction ss7 18:21 Drug: Potassium Chloride 20 mEq Route: IV; Rate: calculated rate; Site: right wrist; ss7 18:21 Drug: NS 0.9% 100 ml {Note: hung with KCL..} Route: IV; Rate: 50 ml/hr; Infused Over: 2 ss7 hrs; Site: right wrist; 19:35 Follow up: Response: No adverse reaction ss7 18:43 Drug: Calcium Carbonate 500 mg Route: PO; ab2 19:35 Follow up: Response: No adverse reaction ss7 18:47 Drug: Dilaudid (HYDROmorphone) 2 mg Route: IVP; Site: right wrist; ab2 19:35 Follow up: Response: No adverse reaction ss7 Outcome: 19:08 Discharge ordered by . kb 20:51 Patient left the ED. mw2 20:56 Discharged to home via wheelchair. ab2 20:56 Condition: good 20:56 Discharge instructions given to patient, Instructed on discharge instructions, follow up and referral plans. Demonstrated understanding of instructions, follow-up care. Signatures: Dispatcher [employer] EDMS Fabiola Parra, ENDLESS STEAMER TENDER-C ENDLESS STEAMER TENDER-Ckb Gisela Prather, SILAS RN ss Desmond Hernández mw2 Lakeisha Tate tp1 Guillaume Newman ab2 Shima Dempsey, RN RN ss7 Corrections: (The following items were deleted from the chart) 16:16 16:00 Missed attempt(s): 22 gauge in right forearm. ss ss 16:16 16:00 Missed attempt(s): 24 gauge in left wrist. Bleeding controlled, band aid applied, ss catheter tip intact. ss
[2021-05-04 20:59] VITALS: TEMP 98
[2021-05-04 21:06] VITALS: BP 156/90; O2SAT 95
--- NOTE | 2021-05-05 18:18 | EKG ---
Test Date: 2021-05-04 Test Time: 15:01:48 Fine Wire Drawer: HUMBERTO MEASUREMENT RESULTS: Intervals: Rate: 91 SC: 144 QRSD: 98 QT: 402 QTc: 494 [place]: P: 21 SC: 144 QRS: -9 T: 129 INTERPRETIVE STATEMENTS: Sinus rhythm with occasional premature ventricular complexes ST & T wave abnormality, consider anterolateral ischemia Prolonged QT Abnormal ECG Compared to ECG 03/25/2021 21:09:34 Ventricular premature complex(es) now present Prolonged QT interval now present ST (T wave) deviation still present Possible ischemia still present Electronically Signed On 05-05-21 18:17:23 [employer] STOR[employer] CLERK by Antony Roca
== END 2021-05-04 20:51 | disposition home or self-care (01) ==
LOC: ER 14:53
DX: G89.4 Chronic pain syndrome (principal); E87.6 Hypokalemia; E83.51 Hypocalcemia; I10 Essential (primary) hypertension; Z85.3 Personal history of malignant neoplasm of breast; Z90.13 Acquired absence of bilateral breasts and nipples; Z91.041 Radiographic dye allergy status
CPT/HCPCS: 93005 ×2; 85025; 80048; 36415; 83735; 85610; 80076; 84484; 83880; 71045; 96375; 96374; 99284; J3480 ×2; J1170 ×3; J7040; J2405

== ENCOUNTER 2021-05-08 17:34 | Emergency (ER) | payer OTHER, SELFPAY ==
--- OUTSIDE RECORDS SUMMARY | 2021-05-08 17:43 | XMS REPORT | Continuity of Care Document ---
:1960 Author Organization [facility] t Address [address] [place] [address] Care Team Providers Name Role Phone LAWSON [...] Attending Clinician Isabelle Ramos MD Attending Clinician [phone] Lazaro LYNN Attending Clinician ANA PAULA TAVARES Attending Clinician Unavailable STEVE GARCIA Attending Clinician Unavailable Nile TEJADA Admitting Clinician Unavailable SCOTT Admitting Clinician Unavailable JAVI BRAY Admitting Clinician Unavailable LEONOR Admitting Clinician Unavailable BOOM CARLIN Admitting Clinician Unavailable NARGIS Admitting Clinician Unavailable STEVE GARCIA Admitting Clinician Unavailable Payers Payer Name Policy Type Policy Number Effective Date Expiration Date S [facility] [place] A B [id number] AETNA OPEN ACCESS [id number] 2017 HMO NAP 00:00:00 AARP MEDICARE [id number] 2020 COMPLETE CHOICE 00:00:00 PLAN 2 [facility] [id number] [address] [facility] - MEDICARE MGD 00:00:00 - Medical [facility] Center [id number] 2020-Present [facility] MEDICARE [id number] 2021 ADVANTAGE 00:00:00 MEDICARE PART A [id number] 2020 AND B 00:00:00 Problems Condition Condition Condition Status Onset Resolution Last Treating Co mments Source Name Details Category Date Date Treatment Clinician Date Venous Venous Disease Active [facility] obstruct[facility] 6-06 [facility] kes - n n 00:00: Medical 00 [place] of Disease Active [facility] [...] [facility] Natural mother Diabetes [facility] Social History Social Habit Start Date Stop Date Quantity Comments Source Sex Assigned At [facility] Tobacco use and 2017-11-18 2017-11-18 Never used [facility] eladio - exposure 00:00:00 00:00:00 Medical Center Alcohol intake 2017-11-18 2017-11-18 Current drinker HOMAR Rodriguez - 00:00:00 00:00:00 of alcohol [facility] Center (finding) Alcohol Comment 2017-10-06 2017-10-06 SOCIALLY [facility] Bret eladio - 00:00:00 00:00:00 Medical Center Smoking Status Start Date Stop Date Source Never smoker [facility] Medications Ordered Filled Start Stop Current [...] kg Systolic blood 2020-09-06 16:21:00 161 mm[Hg] [facility] Diastolic blood 2020-09-06 16:21:00 75 mm[Hg] [facility] Heart rate 2020-09-06 16:21:00 87 /min [facility] Body temperature 2020-09-06 16:21:00 35.78 Lovely [facility] Respiratory rate 2020-09-06 16:21:00 18 /min [facility] Oxygen saturation in 2020-09-06 16:21:00 97 /min [facility] Arterial blood by Medical Ce nter Pulse oximetry Body weight 2020-09-06 06:00:00 141.658 kg [facility] BMI 2020-09-06 06:00:00 50.41 kg/m2 [facility] Body height 2020-08-20 18:00:00 167.6 cm [facility] Procedures Procedure Date / Time Performed Performing Clinician [facility] e CT CHEST WITH IV CONTRAST 2020-09-05 12:35:00 Vandana Tejada [facility] COMPREHENSIVE METABOLIC 2020-09-05 05:16:[address] [facility] 2D ECHO W/ DOPPLER 2020-09-05 01:05:41 Vandana Tejada [facility] (CW/PW/COLOR) [facility] SARS-COV2/RT-PCR ([facility] & 2020-09-03 21:48:[address] [facility] - REF LABS) [facility] CBC W/PLT COUNT & AUTO 2020-09-03 06:17:00 Vandana Tejada [facility] I [facility] CBC (HEMOGRAM ONLY) 2020-09-02 04:36:00 Hari Carlin [facility] PROTHROMBIN TIME/INR 2020-09-02 04:36:00 [facility] CBC (HEMOGRAM ONLY) 2020-09-01 03:48:00 Raegan [facility] PROTHROMBIN TIME/INR 2020-09-01 03:48:00 [facility] US CORE BIOPSY 2020-08-31 18:48:00 Vandana Tejada [facility] TISSUE EXAM 2020-08-31 18:37:00 Vandana Tejada [facility] VITAMIN B12 AND FOLATE 2020-08-31 04:45:00 Vandana Tejada [facility] CBC (HEMOGRAM ONLY) 2020-08-31 04:45:00 Raegan [facility] PROTHROMBIN TIME/INR 2020-08-31 04:45:[address] [facility] [address] ABDOMEN/PELVIS WITH IV 2020-08-30 10:28:00 Elizabethmt [facility] CTA AAA AND RUNOFF 2020-08-30 10:28:00 [facility] BUN AND CREATININE 2020-08-30 05:17:00 [facility] CBC (HEMOGRAM ONLY) 2020-08-30 05:17:00 Raegan [facility] PROTHROMBIN TIME/INR 2020-08-30 05:17:00 [facility] HC ARTERIAL DOPPLER LEG 2020-08-29 16:05:[address] [facility] UNI [facility] CBC (HEMOGRAM ONLY) 2020-08-29 12:50:00 [facility] HEPARIN ASSAY - LOW 2020-08-29 12:50:00 [facility] - MOLECULAR WEIGHT [facility] CBC (HEMOGRAM ONLY) 2020-08-29 05:03:00 Raegan, [facility] PROTHROMBIN TIME/INR 2020-08-29 05:03:00 [facility] BUN AND CREATININE 2020-08-28 16:37:00 Traceyermt, [facility] - W/RATIO [facility] VENOUS DOPPLER LEG, LEFT 2020-08-28 12:43:[address] [facility] CBC (HEMOGRAM ONLY) 2020-08-28 04:42:00 Raegan, [facility] PROTHROMBIN TIME/INR 2020-08-28 04:42:00 [facility] SARS-COV2/RT-PCR ([facility] & 2020-08-27 18:10:[address] [facility] - REF LABS) [facility] PROTHROMBIN TIME/INR 2020-08-27 12:22:00 [facility] CBC (HEMOGRAM ONLY) 2020-08-27 04:06:00 Raegan [facility] PROTHROMBIN TIME/INR 2020-08-26 11:47:00 [facility] CBC (HEMOGRAM ONLY) 2020-08-26 11:47:00 [facility] CBC (HEMOGRAM ONLY) 2020-08-26 06:00:00 Raegan [facility] PROTHROMBIN TIME/INR 2020-08-25 18:11:00 SunKinga [facility] CBC W/PLT COUNT & AUTO 2020-08-25 14:27:00 [facility] CBC (HEMOGRAM ONLY) 2020-08-25 06:58:00 Raegan [facility] APTT 2020-08-25 06:49:[address] [facility] 2020-08-24 22:45:00 [facility] 2020-08-24 12:42:00 [facility] BASIC METABOLIC PANEL (7) 2020-08-24 05:41:00 BorisTom yoon [facility] CBC (HEMOGRAM ONLY) 2020-08-24 05:41:00 Hari Carlin [facility] APTT 2020-08-24 05:41:00 [facility] 2020-08-23 21:14:00 [facility] CBC (HEMOGRAM ONLY) 2020-08-23 14:11:00 [facility] 2020-08-23 14:11:00 [facility] VENOUS DOPPLER LEG, LEFT 2020-08-23 12:46:00 [facility] BASIC METABOLIC PANEL (7) 2020-08-23 04:08:00 [facility] CBC (HEMOGRAM ONLY) 2020-08-23 04:08:00 Perla Carlineb Nur [facility] BASIC METABOLIC PANEL (7) 2020-08-22 05:37:00 BorisTom yoon [facility] CBC (HEMOGRAM ONLY) 2020-08-22 05:37:00 Hari Carlin [facility] US EXTREMITY NON-VASCULAR 2020-08-21 14:30:00 Raegan Harivenus killian [facility] CBC (HEMOGRAM ONLY) 2020-08-21 05:50:00 Hari Carlin [facility] COMPREHENSIVE METABOLIC 2020-08-21 05:50:00 Hari Carlin [facility] PROTHROMBIN TIME/INR 2020-08-21 05:50:00 Hari Carlin I [facility] XR HIP 2 VIEWS LEFT 2020-08-20 18:25:00 Hari Carlin [facility] XR LUMBAR SPINE 2 OR 3 2020-08-20 18:20:[address] [facility] XR KNEE 3 VIEWS LEFT 2020-08-20 18:14:00 Hari Carlin I [facility] CBC W/PLT COUNT & AUTO 2020-08-20 15:02:00 Hari Carlin [facility] DIFFERENTIAL [facility] COMPREHENSIVE METABOLIC 2020-08-20 15:02:00 Hari Carlin [facility] PANEL [facility] MAGNESIUM 2020-08-20 15:02:00 Hari Carlin [facility] PHOSPHORUS 2020-08-20 15:02:00 Hari Carlin [facility] LACTATE DEHYDROGENASE 2020-08-20 15:02:[address] [facility] ([facility]) [facility] URIC ACID 2020-08-20 15:02:00 Hari Carlin [facility] Plan of Care Planned Activity Planned [...] Medica l Center colon (procedure) [code = 779086717] Future Scheduled 2018-11-[address] [facility] - Test 00:00:00 malignant neoplasm of [facility] colon (procedure) [code = 999738337] Future Scheduled 2018-11-[address] [facility] - Test 00:00:00 malignant neoplasm of [facility] colon (procedure) [code = 779778669] Future Scheduled 2017-10-[address] [facility] kes - Test 00:00:00 measurement Medical Center (procedure) [code = 17165897] Future Scheduled 2017-10-[address] [facility] kes - Test 00:00:00 measurement Medical Center (procedure) [code = 49469623] Future Scheduled 2017-10-[address] [facility] - Test 00:00:00 measurement Medical Center (procedure) [code = 87434442] Future Scheduled 2010 SHINGLES VACCINES (1 [facility] [...] s - Test 00:00:00 (procedure) [code = [facility] 87127606] Future Scheduled [address] [facility] - Test 00:00:00 (procedure) [code = [facility] 96888754] Future Scheduled [address] [facility] - Test 00:00:00 (procedure) [code = [facility] 76430061] Future Scheduled [address] [facility] [facility] - Test 00:00:00 malignant neoplasm of [facility] Center cervix (procedure) [code = 518232709] Future Scheduled [address] [facility] - Test 00:00:00 malignant neoplasm of [facility] cervix (procedure) [code = 158249859] Future Scheduled [address] [facility] - Test 00:00:00 [facility] cervix (procedure) [code = 789469556] Future Scheduled 1979 DTAP/TDAP/TD VACCINES CH I [...] 00:00:00 examination Medical Center (regime/therapy) [code = 768813782] Future Scheduled 1970 Urine screening [facility] Test 00:00:00 protein (procedure) Medical Center [code = 450899231] Future Scheduled 1970 DIABETIC EYE EXAM [facility] - Test 00:00:00 [code = DIABETIC EYE Medical Center EXAM] Future Scheduled [address] - Test 00:00:00 examination Medical Center (regime/therapy) [code = 096879931] Future Scheduled 1970 Urine screening [facility] - Test 00:00:00 protein (procedure) Medical Center [code = 332019266] Future Scheduled 1970 DIABETIC EYE EXAM [facility] - Test 00:00:00 [code = DIABETIC EYE Medical Center EXAM] Future Scheduled [address] - Test 00:00:00 examination Medical Center (regime/therapy) [code = 618193732] Future Scheduled 1970 Urine screening [facility] - Test 00:00:00 protein (procedure) Medical Center [code = 621607905] Future Scheduled [address] [...] Medica l Center breast (procedure) [code = 095666549] Future Scheduled [address] [facility] - Test 00:00:00 malignant [facility] breast (procedure) [code = 074249373] Future Scheduled [address] [facility] - Test 00:00:00 malignant neoplasm of [facility] breast (procedure) [code = 496921682] Encounters Start End Encounter Admission Attending Care Care Encounter Source Date/Time Date/Time Type Type Clinicians Facility Department ID 2020-12-24 Inpatient ER LOIDA TEJADA Inter Rad [id number] [facility] 00:09:17 VANDANA 2020-11-21 Outpatient SYSTEM, MDA JUAN [id number] 11:08:21 PROVIDER Holland gallego 2020-11-02 Inpatient EL MUNIZ, MDA MDA [id number] 23:20:41 GAURAV And erso R n 2020-11-02 Inpatient EL MUNIZ, JUAN MDA [id number] 23:20:37 [facility] And erso R n 2020-10-28 [facility] [id number] [facility] 00:00:00 Encounter [facility] 2020-10-17 Outpatient SYSTEM, JUAN MARTINEZ [id number] 12:21:12 PROVIDER Holland gallego 2021-04-03 2021-04-24 Inpatient ER DARLENE BELLE [facility] [id number] 15:10:00 12:50:00 Holland gallego 2021-04-23 2021-04-23 Inpatient EL BELÉN, MDA MDA [id number] 04:19:54 04:42:38 BRENDAN gallego 2021 2021 Inpatient EL MAYE, MDA MDA [id number] 17:08:59 17:35:08 BIJU gallego 2021-04-18 2021-04-18 Inpatient EL ZAULISESUR, MDA MDA [id number] 09:21:00 09:41:51 BRENDAN gallego 2021-04-17 2021-04-17 Inpatient EL DARLENE BELLE MDA MDA [id number] 03:37:16 03:55:45 Holland gallego 2021-04-15 2021-04-15 Inpatient EL SOMAIAH, MDA MDA [id number] MD 22:08:23 22:34:52 BOBRICK Lino o n 2021-04-13 2021-04-13 [facility] [id number] MD 08:40:41 09:10:01 BOBRICK Carsoners o n 2021-04-11 2021-04-11 Inpatient [facility], MDA MDA [id number] MD 02:08:42 02:31:26 BOBRICK Carsoners o n 2021-04-09 2021-04-10 [facility] MDA [id number] MD 23:08:04 00:00:29 BOBRICK Carsoners o n 2021-04-09 2021-04-09 [facility] MDA [id number] MD 17:32:06 18:10:07 BOB Lino o lashonda 2021-04-08 2021-04-08 Inpatient [facility] MDA MDA [id number] MD 18:04:44 18:36:32 IBRETT Boaz so n 2021-04-08 2021-04-08 Inpatient [facility] MDA MDA [id number] MD 15:56:48 17:31:59 Rafal Abarcaer so n 2021-04-08 2021-04-08 Inpatient [facility] MDA MDA [id number] 15:56:44 17:31:57 CRIS AbarcaRUBA Sandra so n 2021-04-06 2021-04-06 Inpatient THEA CHAVEZ, MDA MDA [id number] MD 13:57:21 14:18:48 SUE gallego 2021-04-06 2021-04-06 Inpatient THEA VILLAVICENCIO, MDA MDA [id number] MD 11:21:56 12:02:57 BIJU gallego 2021-04-03 2021-04-03 Inpatient THEA CHAVEZ, MDA MDA [id number] MD 22:23:50 22:40:30 SUE gallego 2021-04-03 2021-04-03 Outpatient THEA MUNIZ, MDA MDA [id number] MD 14:49:10 15:17:14 GAURAV gallego 2021-03-06 2021-03-06 Outpatient EL NICK, MDA MDA [id number] 13:20:00 23:59:00 KRYSTA Sandra so n 2021-03-06 2021-03-06 Outpatient EL ASAF, MDA MDA [id number] 12:54:39 13:19:00 CLAUDIA singleton n 2021-03-06 2021-03-06 Outpatient EL MUNIZ, MDA MDA [id number] MD 09:00:00 12:53:00 GAURAV Ferreira derso R n 2021-03-06 2021-03-06 Outpatient EL MUNIZ, MDA MDA [id number] 10:05:13 11:24:37 GAURAV An derso R n 2021-03-02 2021-03-02 Outpatient EL ASAF, MDA MDA [id number] 11:00:00 23:59:00 CLAUDIA singleton n 2021-03-01 2021-03-01 Outpatient EL ASAF, MDA MDA [id number] 11:57:34 12:10:03 CLAUDIA singleton n 2021-03-01 2021-03-01 Outpatient EL MUNIZ, MDA MDA [id number] 12:08:46 12:08:46 GAURAV An derso R n 2021-02-20 2021-02-20 Outpatient EL MUNIZ, MDA MDA [id number] 12:57:43 17:49:39 GAURAV Ferreira derso R n 2021-02-16 2021-02-16 Outpatient EL MUNIZ, MDA MDA [id number] 08:46:05 08:46:05 GAURAV An derso R n 2021-02-16 2021-02-16 Outpatient EL MUNIZ, MDA MDA [id number] MD 08:46:01 08:46:01 GAURAV An derso R n 2021-02-14 2021-02-14 Outpatient EL NICK, MDA MDA [id number] 16:13:03 16:13:03 KRYSTA Sandra so n 2021-02-14 2021-02-14 Outpatient EL NICK, MDA MDA [id number] 16:11:50 16:11:50 KRYTSA Sandra so n 2020-10-28 2020-11-03 Inpatient UR MUNIZ, [facility] [id number] MD 08:47:00 13:55:00 GAURAV rosalesso R n 2020-11-03 2020-11-03 Inpatient EL MAYE, MDA MDA [id number] MD 08:41:05 09:10:15 BIJU gallego 2020-11-02 2020-11-02 Inpatient EL MUNIZ, MDA MDA [id number] MD 22:10:35 22:18:01 GAURAV rosalesso R n 2020-11-02 2020-11-02 Inpatient EL MAYE, MDA MDA [id number] MD 17:03:33 19:31:59 BIJU Lino o n 2020-11-02 2020-11-02 Inpatient EL MUNIZ, MDA MDA [id number] MD 08:16:22 08:26:03 GAURAV rosalesso R n 2020-10-31 2020-10-31 Inpatient EL STEFANO, MDA MDA [id number] MD 15:19:32 21:47:10 BAL gallego 2020-10-30 2020-10-30 Inpatient EL MUNIZ, MDA MDA [id number] MD 04:31:13 04:49:40 GAURAV rosalesso R n 2020-10-29 2020-10-29 Inpatient EL STEFANO, MDA MDA [id number] MD 18:24:24 19:40:21 BAL gallego 2020-10-29 2020-10-29 Inpatient EL SCOTT, MDA MDA [id number] MD 18:24:28 19:36:56 SUE gallego 2020-10-29 2020-10-29 Inpatient EL SCOTT, MDA MDA [id number] MD 10:00:26 10:24:36 SUE gallego 2020-10-28 2020-10-28 Inpatient EL SCOTT, MDA MDA [id number] MD 22:30:59 22:52:26 SUE gallego 2020-10-28 2020-10-28 Emergency EL KATARINA, MDA MDA [id number] MD 10:57:00 11:46:41 BRENDAN gallego 2020-10-14 2020-10-23 Inpatient ER SCOTT, [facility] [id number] 16:40:00 16:38:00 SUE gallego 2020-10-21 2020-10-21 Inpatient PRISCILLA, MDA MDA [id number] 18:46:01 19:27:32 BOB gallego 2020-10-21 2020-10-21 Inpatient PRISCILLA, MDA MDA [id number] 14:16:27 14:16:55 BOB gallego 2020-10-20 2020-10-20 Inpatient PRISCILLA, MDA MDA [id number] 20:10:36 20:13:24 BOB gallego 2020-10-17 2020-10-17 Inpatient MAYE, MDA MDA [id number] 15:00:32 15:42:49 BIJU gallego 2020-10-16 2020-10-16 Inpatient PRISCILLA, MDA MDA [id number] 09:18:38 09:49:47 BOB gallego 2020-10-15 2020-10-15 Inpatient PRISCILLA, MDA MDA [id number] 11:01:50 11:06:18 BOB gallego 2020-10-14 2020-10-14 Emergency EL LEONOR, MDA MDA [id number] 19:53:40 20:54:56 ALEXYS gallego 2020-10-14 2020-10-14 Emergency EL STEVEN MARTINEZ MDA MDA [id number] 17:59:26 17:59:31 Holland gallego 2020-08-20 2020-09-06 [facility] ER Mallory, Vandana Nile [facility] [id number] 13:34:00 17:17:00 [facility] 2020-08-20 2020-08-20 Travel [facility] [id number] [facility] 00:[facility]00 00:00:00 [facility] Results Test Description Test Time Test Comments Results Result Comments Source Tissue Exam 2020-09-14 10:56:00 Test Item Value Reference Range Interpretation Comme nts Case Report (test code = 104) Surgical Pathology Report Case: [id number] Authorizing Provider: Vandana Tejada MD Collected: 08/31/2020 06:37 PM Ordering Location: [address] Received: 09/01/2020 08:13 AM Service Pathologist: Thien Radford MD Specimen: Groin, Left, left iliopsoas mass biopsy ADDENDUM (test code = 3381) e3acqQCmZXKrjNF6BwJjYJKiy5njp6IjdCCtuVO uPKofmSGgymVxos82mUS9wR91PA4yWJVxVdK1PO OjghC8Otg1LDPkNUAhiESzV084n2yyd6wqukWfv HR3bHifGTXoFJAdJKwnKMHgFaOoIR6mlW5ghFcg rK6psBHtqXFweWWfbMLqbBZgFJTypnJwob1jTDC oxeNeyU7rklXMSBOyTJ7rglN2uaA3KNL7zRZuzh LyjYyzj3BpKjFvICxdtdG9sjBpGIYev8UyoQa0P OSvh7SuA5VbIL4dAFaykHEmjuNlmxKpYQTlsuEi Ip6hDAaosgB2iK9vSFNrRSGiSFWhy52ytonpFW4 KFSUcvP8lsLyhcAXpQ5feIPJdyXsxDDhWYJMoIP FXSOC2LSTkkvZeD0RNRMWcBQHfx3qaJnCtCRBvd vSwtA8oMYwhHnnzN3mjCnjuzUXnrdPjlOLvcLWd YDGnksmlvvltUrQziRIrITI0ogJ9BGEtMRouKPG hsCDtLDRxZPLhZI4siXFgdUdsLQNkvKsmQOEaVD JpzmPvMTScw15iqDBjdJPwgWk6h1eaUKEcOYG4t oVgUKBxETIlPBEiSBPjoHVbXB4iAPSmTPFfuaSc xHLnFbUGxKKeVRMnsdSalo9tcgRhYOrlvHQoblM kuGXuvUClmYn2h6WbSoQwmPw3qrSrSTUsFXWgbb QyJIkgk5A3CPIytFdxlqRgoVKpZA2sWRKsPLFhD eSnYEDlz6Gsyu9tqFJyXEFydpDHjbObQJslQYU6 gYUmisD1cTSrGF4iGQSwDXXfWREew90iwIQhjW9 oPTQszb5bslZ8CTOxh9pdynQnIAicIXRpgz9uIL LotX9sSsZvjLNotKmjYE66VqxbJWCqrGYuRGZuy DKlL0YsCHD9hHqcTYBaNCMuBkHveuJfISMaID1U PVPoELVil49lVNGeqwAgw54qgXe1OBNou02pLKB iPZWcFLEwLHJmHQYhrL6rsOB2xBiaQNQvtUwvbx 5toPCdUYOrflUPyfUfLMMfzYTugR8debKzwQVhM ZWxEDe5WGCuRzTQkF9qSRTzDN8wY4eoPDxanfaj YXJ9 DIAGNOSIS (test code = 3220) n8xzwPGzYOImn1fnDTHjkDMbDeNqAfTaBtMbVb p cdWMxIHtccnRmMVxlcGljOTIwMlxhbnNpXHNwbH NtH0FtsuvfKWtyRX2zWQ1iyHkvnQOnhLXuDCYkQ gZwh7wqw493nBJor5qaQGONvncmfNm2wIfbW46i k9W7GcanA98neHAnOLxecZCblswrizZkIIAUIzE bPQBIQVCQQNpOKX2PI53GYlPKRMPYMISJDO7TU2 v5SLAzyeTNCPaAHApXHDXOJFqmPkJBMQzUI81wU QXpeyDSPJ8YCRRNNkCRWkSMPCVOUJeMNfNBHW7C QP4ZOBeGPNQEU8MIBV7BEGeYXH9JOuhjZERgFST QSB5WTD0yDbWAD7KTQRXBHAYURCgHKk3pSIXron 45BEW3VtRql2E9DOU0HZBzEVXyr8otYXEqrTKpS sFvPxSlSgQmZllbfZDwLNSwAvJsv7enn753zDQh e4coBKXgIeB5tPDeIUMxwBKuP371IHPwEWogs2e ux1QbCGRoxEHbq0K7GEFIskzqiYj8bRgmG81yh4 Y2GmvcA6veQFHfUOSwF5GsXO5dJGGsZkl6EZJ5N ID3IPSrBRXjC2NnAO8cIPWddRVvGSr5k0nfnCbi LVMqHEV9m3rcNRzehkXvJX9nkn7csTy1b6iqziO hZEHvMRYucMPYFGUoV5YtxKfxAn4xrVu1lLqjWe ljVSL9Iae1EX7vjc31fgn4vXjhDQCtbgzhTxA6X XjrERZtxcybMQc1NOihHCSmpPF3RQRgsPGbH8Qg XGZiOT6umnb8BRF8EQtaRTScTiZ1JCWpeUShRMQ mrYrjMGggi885JYX0QdAmYX9sC2Nsw4I0kH4jpN VfVIUwtGBnXlXpHTHbqz4ybYYyQAdey4ThOHY4c rF0bGTleOZzODVuXnC4KHxtFB5thd31KEZqIZI3 ou0tqMUawIzjrtDdpNEaAOsvS5XdPVMrr690DME lZ0OzSLDri2I4wcUhUdAiGQJcnGZ0slD1TFJfRR 8vrcwqx7zfETezQWzhEVHcbeZ7zqL1LWSvzQIhO 3CwhL3eIEZjPF2xbpzug3gpAEP5OAbgVAPlMAQ3 RzEuXXGbv1Qsbtn6HxTfa8XheVGpMYizP88wb86 1KSXhfvMyT8dltBNfuxwpkYQpjgawSGlbtkH6RY YlCBgzdqwbJHShUAkuR4lwTgWpHOTixDseJRzux 6JmRXAhSKGeWjDdnFJtHCFmQqf4YTYbyIHnTHKp GoKdW9fsadofApZBMUYrj7pvC5slgVUWqZXfV5L pSZusmaXtAUdqOUwkKQUrIIK0AX20NFoeXUMilt 19 CPT Code(s) (test code = 3357) y9xukLVdBCHeuOE6ApFoKJRyy2ttv7WklEWk cGF hNQxicZNcbuCooc12zDV9sD68DG7fMFLwVhC2YJ BydeM7Plh9GAPxJSQcgEGxX168w4xwz1persNte CU6kVybIPHbKROhWTyxIPQaKbMdWKbeDJUdGKe2 KaUcZMJ2ZIK4GRs3XUUldm7= CLINICAL HISTORY (test code = 3356) i6qyhGDeWOWvxBN0FyNrRIOqu9cwm6I sdHBncGF tSBawyBPbwcKajt04hMU5sJ42XT2xUKFkVoY2SY MjloK9Ssb7VGXeZMUttMZnQ535e4akr3hmljLyf XF5bAbnCSPbMAMvKNqsSLRbEmFhWHCtpDCgqu0i xaOfwKV3S7pqrU2lx09lslZzISHaIRX1HbXxnXQ 2ZjJhsXPcOJThJHptMAH3 SPECIMEN SOURCE (test code = 3377) y0pkkYKrSODzmWJ9UoYhGAJaq5ymd9Xk dHBncGF cNNlwmPCsbbPejb35nAR9nK82KG1zUKNdVtX5QW BgzzK8Cwy3LZPzMWWspITcV314x3cas9sakeJqr HJ6eLxmZZLmQXPyHMdpUPLfXxBnKAKzcPOygb9k ec3nlJdlnBKsKDSosISeaT== GROSS DESCRIPTION (test code = 3366) b1jxhWZeVGLtqLGiFcNqOZMkSWSab1 lcZGVmbGF oXfDiEkJtLkHyXqrghDCaIXVxFpAer9pxq464lS Nlv2tkMRDZxwkixKc4m4pbTWCrFeN1yYQmEFoqW 1jkyjYidANaGZFiWEk1kD17KFVmlV4vlONfTQbm vzBqJtI6JOzkSVZvXcT2CWWloBVjSGIoH7wfBBP vUDvzWAMuSLhfjSVcCWV0eZoay8U3dQUotFTvwD tcBqNjGcAlWLFZl6FgWCj8wQczA9JlZMXsRfF5p AJhBJElPDbrVQNwTHDxlrF9cI18ILjcqtA1jQAk u1Qsq68xb389rZ2zbTSeZQM7OJFgNQYwiAEqABW oXNR4RCMbiNJbI5u4VfCsqIOcI6Z0PqBgdMApI2 L8XiPkbTTqJ9V4EwIcqHNeMUPomEQlIq3irVYwl ZEmlc2obq07PNP2p4AdcUarVIQ7EPC6PlLoHb0i fGThPCZvKHXnnNPxNEErHD7ejLPrIWAkqV2nvtb qAJJmVxWlzqseHVYffOddmmJxJb2xwYxiERI6TA eeR8bjyP1rXlD0PXgaR8gzfR6aXYn2GVjxxRD3V KOplL8nIA6bqgsre3lkMxDpBA3zxqiyx0udPeYi MR0vlci9g5bjJiPeKF2vgkoyt0ywMvRaAXviVHM clpeeUNOjl2KlhzmmNWHsg7AsR6VqdQzpB45ffG ngB12aVXDumBbrqV3ruZbicG6aItXkPhEqJVzcL XJkXHBsYWluXGYxXGZzMjBcbGFuZzEwMzNcaGlj vKtyOKfePhGbQCZyZGnvH1vuFkBtJxMnFAOLAmG UIKNagODkYZKttoEdd9DbCWvmphLcBCMxmGQwEV lxnKglhIkvICUvvFpzeuFbS1K6bjFlUD0vLYVkV NOoZ1MsZCKfL89jXMMhkN0iKLOmDP8qFODqyt3l cumlcYSsmZAlAF7kAHEftxQyv9VcWC9qZV03mYM oqHkqVQfbOTccb0fapIUql19hzDD7cKRfbCRoC0 4cRUUfhrDbU1erWnLsAzLcMZ7tVKDyWDurXBeht qu1sEMtgPQpnWB9NWEudK9eoG26bdMaxhFHCC5q sSdwWNvasF1qQHLtSNgvXTJkC5IwzQ4rPH6XYjc yZVHuYGIRH6OvI20koAMhaH== MICROSCOPIC DESCRIPTION (test code = z9odwLFpBSPfkIN8CgJoKTVpq9tby1 BsdHBncGF 0461) kTRowwMIjauOvvv20zQO9xU02BM8dUQQuFsX0WH CnenX3Sut6CJZtIHYzyYNlQ534f9txt6urstZoz YC1oAssIQGpHAAtNYppABLxNiYxKVMEUs9WVTJT XHBhcn0= SPECIAL STUDIES (test code = 3376) u2yzyXXeGOAtnHM0MmVcWCXpx8rwx5Xs dHBncGF qTUpchSZpzdAadc31jCI8wL84TA4dOEMuCbP7KS DgxhS8Etb9EJFoQQAneGAxW869BYMbVWUsmSgqu sk9iB80QNDmbM8ljBYhNPt3ZZBtgwUvcKeizT0h OvVuJlJoGpWNnVUyfM90ODQdxcU8FXScz56us5C xzPwdjfCbKKDaHGyoN1l0HYVaLRKnDSS9x3Jko0 OzcO3sxS6xlHqjoC0zcSSznEH0dgfbw8Jxg2GkD 4iygVNowKKlmpXsUJKxogXQEK4FWlNRKB3kG1FS RGGQMcueXrMgWQfjYQWZDMkACSTQSDE0QKKKVJQ qCMURLSbjNTTsF51kbVRqcEPDjAqpFOYoOFloeO wbIMA8JJBEuz1fk8IuFXMkit69qsGbq4QdcOo2J RFdy309er6jveQ9GDVzMRN2DHl4VYFfEHObxH8r FwO0pJHsYDAmMME3YEY9OUQer2H6KJ1cMBRaPVM sGPBfxhWds7ryu4hsDNQoFNU7ktAjgF0cF6SoKL Eeo7KrmLbeMAPwyMswdlCqXGKwwAGpCYGmtO41G NFpdBLhwHMyJZIrWWP0ZNlbiB3yVsSZgsVzbq5e dUEas8MqqZq3LURovuCyipOmQLZpdpLeR27otFQ uuPOyx8ezguDrbjEbgOYwzVUrRLLvQYE2XCw3VX JvXGpaOZFgCAglTONsMW7qoA6apOgxjL7hqRIqx SO7tgkhiCNetY8iU2SdSEIzs4Dfjncfq1VtPZLu dkOhna5vVUXgaHGYASfxp0CuB7WiAHd3c4BapEv iCRhjIIa8QjJuSAFdzKQlgBTSHJ45XSPaADHggG ikzZ6txBRNMMKavrC1q9Q1LAhqJTAsVOs8WQatx hTuKKAoeV6tOXVaWK0wMDl5jdGyYMExa1ZtUK8p XNXfiFCuICA9ZTWrq8ZgV3Rjq4MiTDRwVBUbep5 wmtVcBxLVhWZeSYWqyg59SQNqYV6oJ0pdMAAaYX VwfrHkkMDcd2OtDUVqaFB0zWDdQM3TZpNId35wN DXwXSHQvxFeLDXltCfhuOB9seP0nA9qRzOJgXUj YhXVYFikoqZjRRHpxt1wvkXhNKPeRLIbl9NfgTS acMExbaYtC6Cvg4PgIOUzsl95LXueoGWomw96GC 5lL3Wte5EbzX5aLEdlORSpi1KozFSvtFXnEJPxc 1LnK6tybaifHKnziFAbmF3rTBXiELw3CDQoz7Rk ULYkf1ZxVsQdjgNwQNViCQFiWLTjeP72FIY0pUo zpOjiykQiLT9cWJEbskYyVILxXMIvqB8eUKzcqe WzKQYrttJ2p4O1VUzcARYpgrKgSvyhQRS3xuIsk uK4qBFbD6zdbrpeCWkdMEEvo6VodL7qmSQPxJJw x6FhkYNhsVPUuOIvIX9wfaIiJR9eCOE6FIlyAZR IVTLiEOiwSEFtXIP7SEveQsepHIA7usRiTRZnv0 LyJInqV0bqI98jxOmatCz1uBNcuLtyvDPgzHKdZ GJbgtT7q8D6RTCpm7BcspmbCUTnmm5= Gross assessment was performed at (test [facility] enter, code = 2777) Department of Pathology, [address] [place] [address], [place] [address], Technical component was performed at [facility] er, (test code = 2778) Department of Pathology, [address] [place] [address], Professional component was performed at [facility] clive, (test code = 2779) Department of Pathology, [address] [place] [address], [facility] [id number] 10:56:00 Test Item Value Reference Range Interpretation Comments Case Report (test code Surgical Pathology = 104) Report Case: [id number] Authorizing Provider: Vandana Tejada MD Collected: 08/31/2020 06:37 PM Ordering Location: [address] Received: 09/01/2020 08:13 AM Service Pathologist: Thien Radford MD Specimen: Groin, Left, left iliopsoas mass biopsy ADDENDUM (test code = [id number] 3381) Ido0oao5KrbPJafGTwHLri zJXwkuOzgz61tNT3rS87RZ 1sNVBaUkH7EXJhepG9Ytz7 VFXpQHNlaIOcW442f5hjw9 harhGgtXT0lXsuGUYyUALa PQqwNUMeZuMnHR7qvR7rsH trkS0yoQVpcOGvgIHsoEXx lYErTCZnohEvlb5uDLRywk RuoX5bkaJWKGQqUO9aidD1 gvB2RQX5wOTovaHygMpat0 AmHkHdAHcunwW1roSmRCPf u7OjzRs2NURkf6PaG0ZzAU 4gVGhleSBhcmUgbmVnYXRp ugHxTp7oYCoovlF3iN9tRB LqRHAjZRNwx53xwoonTZ6G HECcqE6hwRirqFLzK0yyGO FjdGluIChTTUEpLCBNVUM0 KAYwdfNvQ4CXKXWmPIUxq0 hjSxFeVJByxyMspW0cBPld WjxnK2glRukpiCFkguTihQ FibGUsIHJhbmdpbmcgZnJv cXFlIXH9ycJ4DLPuJOqcNJ OttUUyZUTqTRQqLR4upTVx dGljIGNlbGxzIHByZXNlbn IlORRcn55lsJIsaYPvnVp7 l0qcGFIfQCL5jwGnRJUfIY HhXWYyUXNqzBYoCA3eULXj ZWQgbnVjbGVpLiBUaGVyZS JkqlRvzd0ejiOzKTjgzBEy jkXaaUWluYZyvOc9z6PpCg EunLo3azUmLOQbASOwptHv FNjba5U8WGZsmLvbdgJobT FaRR6tFVNaKVQiBxGiNKKz z0Vnrs9roETcFTDgqwEHkw ZpAWrpTLS6gDUrltO3gLUi KI1xZQFiHZIoRFEbd50kbL YdrS3jICSuuw2gjgZ6PANp q4fdezRjULsjTMRhcd0rAM EkuK0uIlZmgYVpmCplAC88 LlxwYXJccGFyIFRoaXMgY2 LaTYQ4zUuuMTLeXKBsJkIk kzXuCMBcYI2VYLBmBZJvm9 6nJWZfrpSpc24mjYd7TSMj z48tATMfHAFeGPIxLVZrRA DvdS3fzEB8kPczRACdaGuw op9zaODqKRLahnJElkNoJE FiiTMmwN6kznDlcBNrZEGt RVe6MURrFqDJcK2lVRGdYX 8vU8uhMZmjxnigPOZ0 DIAGNOSIS (test code = k3svrVPzHBRao0wjQLIfhE 3220) FuZzEwMzNcZnRuYmpcdWMx IHtccnRmMVxlcGljOTIwMl gvdeKgUOFgaBSzZ4Wdxumx AYfnJF2jNM2evHjqyAWikO HaRCTaXwNoy7vng269tIEr k5ipTVFJbbuqvFh2gWpnX0 2qc9L7PbgxX18viZMpIZii bGFpblxmczIwIFBBUlQgQS DUHGSEHXtMDX8XR81ZJeTY EIXJSJNXME6AE9y6EJBtyn BTUElORExFIENFTEwgTkVP IPrFB21nPRMcbnYRGF9HHR BJTlRFUlBSRVRBVElPTiBQ EA5NFD8JDRkXYNYYH7QCDJ 0JZJdPXT6TDorqUVDeSDTM KO3NPU5uDsLZX6UOSGOWEH TTSXsDXt8nGINnsg01VGL7 YtYif1T4GJC4KFEuYSCcj7 lcZGVmbGFuZzEwMzNcZnRu VdvinEJuFERyTzFqf8mnu6 45lPWzf0lpDQSyDoN6lXZw ZHWmtLPmN206GKIhSQvax1 trn0CaHKRpaUPui4Y2QYGR qannwTg9eTdpS13nv5H9Hx aqG3fiXFImGCGfU6JxUQ5r GGVtJiv7SBN3HVG9OEFjFG OcI7RvBK0nTAMswIFwNYp5 a4qfyAdsZEFmUXZ3d7ccWR cxcpNgRV3ysi8efAq7w5jp czEgRGVmYXVsdCBQYXJhZ3 ThnAsmXl4bfRv2iMzbBxyg PET3Wnq8IB5qwk16wqh6oW lgCHPgonwaGgS2XAbuVOPv newrXUp2HUorVEWxoGF0IG ZunZGhS8FqEROxID8kurq0 DWM2VNogNMUyNxW7TGWjuN CeTTOkzBymQHkra978YMS8 QpMdQF4kV6Pib7L4zH1eqS CqXOZbiKDyLvKwFTLliu0d gNGmJTkbd2HxMCE3qyD5tK CwlXVaYNWbGyU8KGjeFT4w vg20XZDfMRQ2mc0tjPYndE mwrkFhwKViWYwwC1NnCMYa p428SJHsF4JsEBLcr0S7tv GdCzBiORTyaGR3bcI2VRMa CS9onkrmj9izXDqjALetDR MnuhU2ojQ0VHXuuCZeF1Rs rO5tFDExHF5rdmhpq9zmBL A2NVbnRQUyGYD8NfOaBEEt z1Njgos1LzSku8YqwDQqQB epF24oo167URLxmeKaU0he bGFpblxwbGFpblxmMFxmcz S3XVLpHEsapiwdBTDhKVpv T5ukUuIzYUZluNaqIMaqb5 NoXGYxXGZzMjJcdGFiXHRh Xiv8MDLihBMwHIIdUlZlQ0 uwlohfZfLFGVXmh2olM1mk qILWlAXyY5RjXLgskyEuBF fmQKklIERzKDV0UT94CLgj ZXBlzu74 CPT Code(s) (test code r2ornKEbZNXfgAY2PmWpEN = 3357) Phq2tee4ZuoJRsuZDuYAcz mBIadcRviq21cRN7vC44OK 4mMDFrGhY7ZZQeexJ2Kls2 WGEtCFLvuQJiE047r6ljh7 oafqAbdXQ3sKynZOAoLZHp YWluXGZzMjAgODgzMDUsID v8UcCjWGF9DUO7CRs9VHYw cn0= CLINICAL HISTORY (test w6ssxAQuCBUdaUO6UyIoXU code = 3356) Sni5hvc9DgdCGggFYnDFwz bXLjeaZsgo23jTV2mO22PA 8oDVMfGrD3HGBsebG7Hld0 RXXbCFQvvLGjC326w1gwo5 qwmqVxtUY2yTrwQWIlEQKd YWluXGZzMjAgTGVmdCBncm 0oavAgiZV4C1zwrK4uk23p tcRpFAHiLCD7UiWeoOV8Hj EgeCAyIGNtIFxwYXJ9 SPECIMEN SOURCE (test a2dyxNByWKDpgFX9HnGfLQ code = 3377) Xcf2fye4LjbKTgrBKnPMsj wDJjipZctv94oSK2cO07KF 9fKNHkWxU1OROjdlJ4Vvl9 IZOxNUAaoZWvC109t7kzy0 hymtLrvLU1bNsdFIAfLOBl YWluXGZzMjAgTGVmdCBn 7emy3zrMgzrHRvDUMcbOKy fQ== GROSS DESCRIPTION (test a1shjZVfRKSulDEeLkFdNT code = 3366) RuDEEvx5ioPJXpkQMmHhXx MzNcZnRuYmpcdWMxXGRlZm Drb7bky708zWAog7orCUQB lwjpgOg4f5icHDDjUqY5lK JeVWnjF2gecoIsuJTmEYMy JYa5aA21XWAknU0psSByUH ufkqWkAuE7OBsaCDPwMiZ8 BWNthAEvTBJaG5fdYSMpFV xhEAKqRIyjxIIqSWC8dKbk i2Z2eESehOEakFeaEzPfXs OhQLMYn7MuJFq1iZkzG2Zm GXLaFyD7tBLcKXScTYskEB LvBJJafpX1xS39UYmitsI5 wZNco8Dei55uo162tV4qbD HtTDV4HOLbNTVfqUUoBCPr XVF2KZVsbYKsQ8y3YxJzyE WlE3J4HoUqwKTaX5O1VrHe uSIaJ0O1ElXnwFXbIORdtZ FvYn6llDJmqZKvmj3vnt99 ABF0i1TchWjvKIU8NRA6Zy NwJe8wvWIyLRLrTLLtkBXk MPXdKB2xqFFaHKEoeK3pij xjXHBnYnJkcmhlYWRccGdi fuKyWt5vpNlwUQN5QAmzF9 jlyK3fUtQ7GRxaZ5fhuM5o WJa8MYmmaXA8IQZqdF3jSP 8dgyvnu2sjYaFsRJ9hshii o4ggEdAiFU3peth9s8vdYk CmRQ3vaswtc9flCyOjRHqo JVQalxscLVMjn2YacpadOX Wxa8ObA3CfdFgmE48gcLvl E15fCLPjlZllhA4szWsivG 5cZjBcZnMyNFxwYXJkXHBs YWluXGYxXGZzMjBcbGFuZz EwMzNcaGljaFxmMVxkYmNo JUJlISsbX1fiUdNqFpQpIR BBLiBSZWNlaXZlZCBpbiBm l4FeCSaalbZaBRWrjRXoYL dpdGggdGhlIHBhdGllbnRc O6V0akNsPX6sSQDwMJFzD0 DsZNQpO39fMEZjeR7tIDNi GD2fDLMwsz5jnkeqyDBfzX GeYU0qGUZjagOif9GaTT5i QP58qOSomFzyVTlsFGidh5 joiURbt06fdLY9pPGkwTBt O91rVQUtklOdW7tlPiLgJi TlNM1vJADwDNtuMGeqron5 oBGljNMnbEO1LLWeoZ2dvE 08zuRnbvIXOH0sqAiaQTqn bB4pAAZqYRdwLLDjC0DcwY 6cXW0DCdvsXYAkLFEYU2Ig I02vyBZyxG== MICROSCOPIC DESCRIPTION j6tesCHeGHAfwRR9WqJmUV (test code = 3371) Sny1dvs7VuhSRbmXJeLIgl uZGrejPsxx65xQZ8nB81UX 5aDVCvSuU7PMIgmdP4Fqj6 IYPoEUBqhRYxC031v6emj6 jebtAdaTV4bOqqQNOaOJVt QMwdUMUeXzOkXTSMYk4RXV VEXHBhcn0= SPECIAL STUDIES (test h6hocKBeXXCadQO5NkKzRO code = 3376) Yim4vad4IqwPOatHKxFPit pDQelnGdwr77bIJ3hU46SY 1kQYBaTbL6ONFqwwA1Hov5 XSMxJSYesIWjC648KAGsPV TwjXytcrs3iB19KDUepA6h uWMoGOe0KSKyakOhsHrnlV 3qWdBzMmQnBoYStFPzkM83 SRNfigQ0WOPyd85qx5GlhN ukxzBvTBDnCVahX0p0RWPs ENHlPYK4p8Bdh8RzuP2stR 9bvZiobN5zpWAmtBT0tnge h8Zns9CjR4jrsXUyyHRhsc LcSBRysnMEXQ3SCwMKWO5h U6FBTVBSElzsPwBbWCawMA GNISyOLIMVCRS6ZCMKMHQe FOHHNTbxPMMyZ96ccWKtnQ BTbGlkZXMgRXhhbWluZWQ6 FKCPye6ez9XcSRRkgb41vu Jgt9JqlXn6VDPzn421te8f yfA9XMUdXHC6HIs3HOWiKF IaeJ8jXpP1uZMdRTGvHXV1 JNQ4ZOPpx8X6AN9jATUgXX XaRXZmdhTqo7kwv9pfZOVp MMB5pwXraJ8fC1UaFRNsx3 YgdGhlIHBhdGllbnRzIHNh jMWuTBGrxR87CKJgdZRoeC XuXVIfYNY1XQyibF3sNgHB pfQuqs5vjXOre9MgkTf6NU LioyNnqmHgIHWakpCcE53k eTVwtCHyu2boxqTenhVqvO WksHUnBPQsLMY2VHy2MDAo CBvhVPJhIFpcDHDnCD2ihT 6nqZkdtZ6fpVCljAQ5mdpe jOQzuG1qP2PjGLAhx5Mdgc tht1IdIEPqqdKofu6pSNKh aBHKYXgpg7LyX8QoGQe2t0 WxtNbfTFibWZj5OrVwWXYh wYErxJJWUX52PDNjPLVyhK ljiQ1dhPSFEEElttU0x9W4 HLrjFZAzYMv8SClfkhCrNJ RffB6dBEMyKP3fUCj7pmFg CATte3BhDH5zOZRkaEBpUZ G2BSNhw1ZkS5Hvb2NcGWOk OFHtxf2mkuSbOvSGkCBtIW Mhtn74DOHhWM3eA8sxRXMb KYGyeaSnmJUai3FuCKYqmT E3tPHoCP9AKgUEf09wBTCj WNOJeuKhNCYliKrvkWE1si C7lP8iMdUNrOGhCsVNAPbu ztQoEOWiop0uvcIcWYHtBB Kcv8SbsYHywAObxqEjD3Fg g2BfKVJpht90PNqmmRYlke 16EJ8jS4Toh1CmcB0qVCks YCEbj6MtzRAmrYRvTTWdw1 CdF2qijcaxYNsifWBpxW3g VCTxDDc7HNLeh2AnSUEec0 QgYmUgcmVnYXJkZWQgYXMg mL25MQW2rSuinBsiqdFlYQ 9zBKDfdqTrXXZvPATwwG5j KDtezzCaRGUtskF5w5O0UI sqSIDksdGaQmmtJBO6zaOq ehK0xTNlS5mcrcpfAKjrBP Dtm7YuqI5coHJSqSPzm6Du nXSepTILwNPcEU2mryLnTF 4nYWS1BLtkTIOTSTRoGJmu YYZtXJT9PAxeBspkIZY0ox NiWEJlw5SuDBkiX7eyG75l hPcosAd4qJLqsFyvaCMcdG OhDTGjduJ8p8L2FNGqp5Fi bmcuXHBhcn0= Gross assessment was [facility] performed at ([facility], = 2777) Department of Pathology, [address] [place] [address], Technical component was [facility] performed at ([facility], = 2778) Department of Pathology, [address] [place] [address], Professional component [facility] was performed at ([facility], code = 2779) Department of Pathology, [address] [place] [address], [id number] 10:56[facility]00 Test Item Value Reference Range Interpretation Comments Case Report (test code Surgical Pathology = 104) Report Case: [id number] Authorizing Provider: Vandana Tejada MD Collected: 08/31/2020 06:37 PM Ordering Location: [address] Received: 09/01/2020 08:13 AM Service Pathologist: Thien Radford MD Specimen: Groin, Left, left iliopsoas mass biopsy ADDENDUM (test code = [id number] 3381) Orb4gwv4TieZMrxIRnHEck nSCeovJwog32fVY0kD09MG 3dVNCyNoH7RWKsbqA3Nan2 OXYqRZLvjHEaR437u5now6 exdvXuxMW8jUvqAXAzEAQp YEzaADSsVuNsYH1irP1heE gscN8cvFCbnQWnjNSngBMt eGHhFZHkkvHsbe9oDQVwmn TrxS5ejvNTQXPyNE2hhyD5 tjE4GYY9rEFresRoxGkaj0 AlBtQjNXooliP4ifCnJZIz p9ClfJt0OIUjo5QpI9TrTD 4gVGhleSBhcmUgbmVnYXRp zlDhKp4wQHtswfC1xM6vEI VuNNVqRDUkh24hrdfdHW2D BTRptN7sjPpsuCOnP8rqXR FjdGluIChTTUEpLCBNVUM0 CBAnckTyI5CZRAMsFBLps9 cqJhEwRONbotTdcX1dYMru TtstG5hfHdyqqQCshwDoaX FibGUsIHJhbmdpbmcgZnJv vMRbKWH9syB9JHIcTCtcMJ PpaZQeMHWxTPPsGV0fwFRb dGljIGNlbGxzIHByZXNlbn SaYNSss17qiUBstVKouSa5 b9mwAUIpVOQ5ttLmURMeLG WwHGOqRIImkSIxUK6pNNJo ZWQgbnVjbGVpLiBUaGVyZS BxbcOugc6ddaJcYBaybZHv pnYgpJJukFLypRx6x2XwNc IkwOt1fgRaZCHoYATofrQi QKcik1C1CTRdiBcyxgCkrP ZgOB7lHYSrLVMuIaJcWKQv h2Zkpd0kwTXkGAHkyiCTgf YlYNfqLUN9cPSqmzO1sRKz ZO5yFTKhMNJpOHGct78doK SiwS2nBAQngn7fjfH4QYSp o7edstHuJNqlPQXoay3zQP BcuM8mTdLjyNMrjDlrZJ97 LlxwYXJccGFyIFRoaXMgY2 DiOTW1aPznKHYbWWNyUmXc hxYwZZVqRZ9HSDRoJGWiw3 5zZNAkepPxy72czDr7QXJo i16kPVKtMAGtXSCbJCXmOW UksV6wcRP3zFvsTFPcxLzg yk5zqRXeYIJspmLQorFrAR UmdXFonE8lllOtcKCeKQFe TKo5HEGoSrMVnL4yZQXvND 3aT3wnSWvvasvaCHV3 DIAGNOSIS (test code = q7uejXXeLKTfl5qnESYvwU 3220) FuZzEwMzNcZnRuYmpcdWMx IHtccnRmMVxlcGljOTIwMl rbrcHlOREdqABnH7Woorrc WQycUE8pKD7rfFpraVNrjW DoMVJyHeUlb7ptr457nTLn a7czXCNClshttXy5bRuyY5 6uf4D5IxqcX16cuRBsKAqn bGFpblxmczIwIFBBUlQgQS ZMTCONTIkDAJ9HC52FBrPZ AFICGYXOPK4IP3w7JPNpsr BTUElORExFIENFTEwgTkVP MYeWZ91yUPQfgqGMPY2WEF BJTlRFUlBSRVRBVElPTiBQ DX2NQZ8KKMvEMDOCY8ZCPK 7BXFtPWM2ZPskgZJCfMYNT FK1TJX5rZhSXE1VXWQJZJV IIFUtQAn7mNLPjxp38QRW3 WlZdg7G9FYR4EQXsGZJrb5 lcZGVmbGFuZzEwMzNcZnRu LsnrjSZgAKQiTbRuu6lwe7 23pCXla5zqWJBdShD8hSAr LQCxjJImV802CZTzSSfpq3 kqk4BmLWZlmTNcp1I8STWV qpfttSb9bHflH58zu6H4Mv ggV2uaAVXgOQGuM8MdPG1t BFIsFrf2YKD4DQB9GKEfON EwI2CdMC3yYXVvdEPqJUq8 b7ybdEoqKISsAEX5f3xoTL xtudFeRE8kqj0qwNq7h1wb czEgRGVmYXVsdCBQYXJhZ3 EueNbyLu5ftQd1cFjoHjyj WAV0Txh4IP4knz99yzh7xE pfRMJbbdnaKzL1LAuhJIHv ifjxKGi8VAcvNZLuhSF6LS RzzPKaY0HlXDZrUP9vhjx6 GAA7IDueQDUfEuP5KPCldH MeGWBjsUjdEXvmd731HKC3 UnCsTS4nF6Bvi7V0tM8ncB NrCLFhdHEvWiNyFZLiwr3l yLHaRArfx8PiASJ3qxT2nF GmnSCnRJZwKpR0EEqoEO0o vy60YFJaYDQ6lu0uaTCajK hkibSjcNOrPXzmA7ObIMXz b570BWNiJ1OeQCPcx6V0sz GwXtLpQIYmnKV6ifJ2ZQCn EN9ltzdka0vcHNhsPKuzQA DygpM8bsX1SGFklLVwB1Ti xB4lKZDyRU9hqahyy1kwDX P1DJpbBYAhCJX5OoEbHVVm m9Qvufl3JyLwt7YrtWDuTE bhA68nv799PXYojhUtV6uh bGFpblxwbGFpblxmMFxmcz X1VZBcORncccrvRQQfXRps S5faElNzAAIyzHdeNWffk4 NoXGYxXGZzMjJcdGFiXHRh Adc8QKCueROzAJByIeDfD6 lrndblWlLGGGZmb0rgZ4ku dOPTcLQiW3PgGGkqaeHkYK kjMVflTHVmCCH6VL33RUgo ZQXdgm88 CPT Code(s) (test code q3cqsMDdBKAoqQB6SxOvHW = 3357) Sum7hqn2ScsBYktLEgUXao sATvnqVrev11hIL8gE90DM 8jYKUxOzK6LWNwjeI2Ocm3 PAUyRLRsxLFvH062b6oyu2 eccxQrhKS1xPwsXUEuBQFy YWluXGZzMjAgODgzMDUsID b1TyFuSYA2VZU4JSr4RHHp cn0= CLINICAL HISTORY (test o8mpnMYgTEUbmVE3EdWgBP code = 3356) Lxi6nuy0ZhvMRpoFVdMCzh wAHseiNwxi91eYM9qL07KQ 7tKLYdQyY5IJGdocD8Jdd9 NMNoSMSecSJrY180m9csk7 uvrzGrpHU2cMemGOVeWOJw YWluXGZzMjAgTGVmdCBn 6frhMuzEZ3G5hixL0ma48n wqTnQBIzXNO9XgMrhGT7Hv EgeCAyIGNtIFxwYXJ9 SPECIMEN SOURCE (test v8ayoJNfWAIwaAA1UjGyLY code = 3377) Alu7qoy8HkeFCqhTVrHBgz mBAlofJosx04cHQ7aD82JF 5gFPHxFuM9EYXznoP9Tbj6 QMPiDCZccEYjI861p0fyh8 efdjXbfAT6wQutUSVoMFWm YWluXGZzMjAgTGVmdCBanner [facility] 4she1xfUbluEYuDYCwhCDv fQ== GROSS DESCRIPTION (test n2xjkKGaTLOwkKUuTnNgEM code = 3366) MvZSPbk8kvKPBfwIVxOiHn MzNcZnRuYmpcdWMxXGRlZm Nkp9udw436qSIhn7vuDDFW aukorXb1g9opZRLkKmQ2uJ MtVLkaG1amxfNllOPtFGMl YGc1gW42SXMmcM5cqBMqZO nmckQeFyW2FZiqVQUiPuP6 FHHbjCOuBEBpF3syCOWiFT uaLULjPPikvUNwGBE8sFdc m5C8bGUrmUEnyRwjHiEzAh ChRFTNw5TgLBy4yUraZ7Pb BLAqSyS9tEDtCPUyHRofQE NdBGUwfmQ4cB32JKwfupH8 lOXgs2Chb73ay024vT8amB RgUIZ2VXQnZLCqtODnCCCw TZN0OOXteMHdD8g8GoZkoD FnJ1M0MnBapIEbQ6A9TsVc kPJbX4D3QnJdvFEdBKGnrR DeEy5ffJBplSQtbq0bse67 NEY3r0NwdLcaDCR2HLJ9Rg ZrOe7rmDDaEGYuWSZdhVBx FKQiLP3ypEPaFLRjkF9lvb xjXHBnYnJkcmhlYWRccGdi ynKyDg6uqKsdCSV8CCxaK7 akwQ0dEmD2OLlmH8sgiD2e QGo3GUuvmXH0OFEtbK5jRG 4oevcgp0oeYwZjVE0vatcl u9rdKsBaVH7nlkt5n3akCv KeML4zsfvue4wpEhMbPBvn DJVdyanjSKJee7ExolgbFE Mlv2EtU8GclJtuY52yoLyk E43bSUSjmCffgU9igIrpoX 5cZjBcZnMyNFxwYXJkXHBs YWluXGYxXGZzMjBcbGFuZz EwMzNcaGljaFxmMVxkYmNo NMLuUOlxE0pfEtVwRkDiCN BBLiBSZWNlaXZlZCBpbiBm h2IqQGxmtcPkNLAhqWMoAC dpdGggdGhlIHBhdGllbnRc J3K6qbRdOK0lXCKvRDErD7 KrDLMdR09gDNIohL3aFOTu GM6fNWGctv9mkshedORnvW QdSD1fCOTcwsFoi9ZsKI1a LG96tWIcxIpkKQzaUGmdj0 afvLVay88rhAC2mXIumEDp T61yFTUcznTqO9jpCkXfDh LyHQ0wRKGwBKcfDFszpss6 uZUadGKhxKI1HWAfiO2swE 94ejQkoiQXMV6qqEnpAVmi gK0tTKMdHCcvARNsR9GrqJ 2aIK3MSzmyQYCeMTPZS5Gh W48wfTZvaW== MICROSCOPIC DESCRIPTION z3damYKpBJOusWH2IlCqPF (test code = 3371) Iry3ozt6PwkGDvvFGrFBsn sPCdswDyax58kWP7dX99AF 9uXKBiFlK5HLNbyxX8Lhu3 YSRfJUZmwXMlX939q3wgv5 itseGxqXG0sWzmMTTqXPKw SMmoDQAgLzJuWUBKSa3GWS VEXHBhcn0= SPECIAL STUDIES (test f9igeNAmQWZhzRQ1WzBoMY code = 3376) Bkh6dxp0TdiCBlkHVlOOfd hWMdqiQdjq84pHG7vS21VF 3zVVAeJdB4LUNwpwA9Yqi3 TTKcOHOkeBBcK847GONvXL DoxQlmujj4hA09BVYglP5y jZZaFFn9MWRdifZsfLlusU 6dXzAzRvXkHtBHrSTuqW03 XVVgygE2GDBom78xh5UogO lowmQhZCHbGZxsL3n8GXXl ZCMmQIR9z1Kjx7PtvX8wfB 5ccImgsX7jrZKpzNV6opym b9Vxx2DdR3ppnIWscFJgjc BvNLYwvlQQVA9YRsDUIQ2j V5TZVLEBPnzeXjUuOQptMD VHZDoDTIGPZZB0KBVNSCNv ZOLUKFbqJSYpW71ndWNmjN BTbGlkZXMgRXhhbWluZWQ6 BUBDrv7js0NgPJUcmh23ss Zja7XdhDf2IDGzg208jz4d jyY8GMVvGPC5QHs6VXTqDK HpsP1bAhR1cQQqLNRqPKE2 OTA7UTNmn7S4QM2yJZHkJY UoMHCkaeJey9xmt6ndPYPk ILL7jlXjlZ5iX5NqPQNuw4 YgdGhlIHBhdGllbnRzIHNh bAUuJXEseY15QPKfxYFrkZ FdWXPdHBL6UYmcrU6vYaLP qwLwsh9apIMkx1ZcjVr1OO RlscShjvTaCBFsdbQbR50x hGSqhRRib4podbAetyFoqX VtpEItXCHsWYQ3QSo4VRWl ZWjlOJPmEIkuNIPhZA9emF 5qpHvgwE8lsYYkbWU6wycv fHZpkV9mY7BrGADxr2Jnuy ndh2ZvWSCzwjKcbs9lHWDj wXAKYTwhb7TwK6TvOJl9s6 SipZonQGqlBZp1TdZrBGJt oCFsgRIGZG17XCOuZCTzrP gusN4foKEFNAIwkjI8q4I3 LWmzJTOqFQf5PRbisiKhOC SeeO2rVVLqKC8zUNq1kwHb RAUjr9TcQO0qKDWrxGAhWH L1QFWdn5PrZ5Tte7ZaEWPo ZGVgfh0knxGwGvSAlFDgZO Shlo44TUIuXI9fT4cxGPTu FCEpveZjsWSiu0CzVNNvoG S9eYXgYW5YWgNZl08cSNTm DQIUgqAgRJOprPnctRS7re T6bB5oHcLJkEUhZsARIMqb zyLlEZWejm9ijkGhNIUoMA Ffn9OnvYXsdWYodmHbV0Ov t3EbDSZfxl91IHyxyPZjpg 66OZ2aM9Bsh3PkbU7iBRms JBVzb7GiwPFebZVnTAOdm3 KaD4sfexriDKoxmFXomL7r XTFkLOe5IAXno7NqKUIdt8 QgYmUgcmVnYXJkZWQgYXMg yC31DLQ6tKkeuWfpktJbVZ 9oSSTskyDhZNKrVTJksC2y WFimfgWsVPKapaV9c4H3ZH wcVKZotiBbLszbKOG4ooLf biF3mBDyQ4lofqsxCYbsXZ Ict0DkgO0mqJBXsLWqu8Ow hDNlmNYQkIMpGJ8sedYoQG 6wMON8PNliJIAQSCOcGDhh TMWcPGJ4QPhrDspjPXR0uf FmUNAls7XzSMijB9gzK88a xJbakGy2tSXycGftiYMqfD JiTQRhygM4z7G5BDRye7Gp bmcuXHBhcn0= Gross assessment was [facility] performed at ([facility], = 2777) Department of Pathology, [address] [place] [address], Technical component was [facility] performed at ([facility], = 2776) Department of Pathology, [address] [place], [place] [id number], Professional component [facility] was performed at ([facility], code = 2779) Department of Pathology, [address] [place] [address], [facility] [id number] 10:56:00Surgical Pathology Report Case: [id number] Authorizing Provider: Vandana Tejada MD Collected: 08/31/2020 06:37 PM Ordering Location: [address] Received: 09/01/2020 08:13 AM Service Pathologist: [...] REPORT TO FOLLOW. 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 [...] evaluated Immunohistochemistry technical testing was performed at [facility], Pathology Laboratory where it was developed and [...] to perform high complexity clinical la boratory testing.[facility], Department of Pathology, [address] [place] [address], [facility], Department of Pathology, [address] [place] [address], [facility], [facility] of [facility]ology, [address] [place] [address], FT, CHEST, WITH CONTRAST 2020-09-05 14:16:00Unlisted Reason for Exam - Click Yes and Enter Reason Below- >YesUnlisted 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 on09/05/2020 02:16 PMCT chest with IV [id number] 14:16:00Interface, External Ris In - 09/05/2020 2:18 [...] Smith Verified Date/Time: 09/05/2020 14:16:01 Reading Location: [address] [facility] 2020-09-05 14:16:00Interface, [...] Smith Verified Date/Time: 09/05/2020 14:16:01 Reading Location: [facility] C013Y CT Body [facility] 2020-09-05 14:16:00Interface, [...] Verified Date/Time: 09/05/2020 14:16:01 Reading Location: [facility] B1 C013Y CT Body [facility] W/Doppler(CW/PW/Color) 2020-09-05 09:47:35 Test Item Value Reference Range Interpretation Comments Ejection Fraction Est EF is 55-60% (test code = 2574) PXN (test code = Interface, External Ris In PXN) - 09/05/2020 9:47 AM CDTTransthoracic Echocardiography Report (TTE) Demographics Patient Name DANIEL DEL VALLE Date of Study 09/05/2020 NEELAM Gender Female Visit Number [id number] Race Unknown Room Number 2146 Number Date of 1960 Referring Physician Vandana Tejada MD Age 60 year(s) [employer] Be Interpreting Eduardo Roberts MD Fellow [...] Velocity: 2.81 m/s TR Gradient: 31.62 mmHg [facility] W/Doppler(CW/PW/Color)2020-09-05 09:47:35 Test Item Value Reference Range Interpretation Comments Ejection Fraction Est EF is 55-60% (test code = 2574) PXN (test code = Interface, External Ris In PXN) - 09/05/2020 9:47 AM CDTTransthoracic Echocardiography Report (TTE) Demographics Patient Name DANIEL DEL VALLE Date of Study 09/05/2020 NEELAM Gender Female Visit Number [id number] Race Unknown Room Number 2146 Number Date of 1960 Referring Physician Vandana Tejada MD Age 60 year(s) [employer] Be Interpreting Eduardo Roberts MD Fellow [...] Velocity: 2.81 m/s TR Gradient: 31.62 mmHg [facility] W/Doppler(CW/PW/Color)2020-09-05 09:47:35 Test Item Value Reference Range Interpretation Comments Ejection Fraction Est EF is 55-60% (test code = 2574) PXN (test code = Interface, External Ris In PXN) - 09/05/2020 9:47 AM CDTTransthoracic Echocardiography Report (TTE) Demographics Patient Name DANIEL DEL VALLE Date of Study 09/05/2020 NEELAM Gender Female Visit Number [id number] Race Unknown Room Number 2146 Number Date of 1960 Referring Physician Vandana Tejada MD Age 60 year(s) [employer] Be Interpreting Eduardo Roberts MD Fellow [...] Velocity: 2.81 m/s TR Gradient: 31.62 mmHg [facility] [id number] 07:34:00 Test Item Value Reference Range Interpretation Comments Protein, Total (test 7.5 See_Comment [Autom ated code = 2885-2) message] The system which generated this result transmit yumiko reference range : 6.0 - 8.3 gm/dL . The reference range was not u sed to interpret th is result as normal/abnormal . Albumin (test code = 3.6 g/dL 3.5-5 22603-3) Alkaline Phosphatase 106 U/L 40-150 (test code = 6768-6) Total Bilirubin (test 0.2 mg/dL 0.2-1.2 code = 1974-2) Sodium (test code = 139 meq/L 671-651 6199-2) Potassium (test code 4.7 meq/L 3.5-5.1 = 2823-3) Chloride (test code = 104 meq/L 98-107 5-0) CO2 (test code = 25 meq/L -29 2027-9) BUN (test code = 10 mg/dL 7- 3094-0) Creatinine (test code 0.70 mg/dL 0.57-1.25 = 2160-0) Glucose (test code = 159 mg/dL 70-105 H 2345-7) Calcium (test code = 8.8 mg/dL 8.4-10.2 81254-0) AST (test code = 9 U/L 5-34 1920-8) ALT (test code = 13 U/L 6-55 1742-6) EGFR (test code = 103 mL/min/1.[place] [address]-2) NOT ACCURATE CREATININE CLEARANCE IN PREDICTING GLOMERULAR FILTRATION RATE . ESTIMATED GFR I S NOT APPLICABLE FOR DIALYSIS PATIEN TS. JESSICA (test code = JESSICA) Machine Erector ID - BALA M Lab Interpretation Abnormal (test code = 96738-6) [facility] [id number] 07:34:00 Test Item Value Reference Range Interpretation Comments Protein, Total (test 7.5 See_Comment [Autom ated code = 2885-2) message] The system which generated this result transmit yumiko reference range : 6.0 - 8.3 gm/dL . The reference range was not u sed to interpret th is result as normal/abnormal . Albumin (test code = 3.6 g/dL 3.5-5 64128-3) Alkaline Phosphatase 106 U/L 40-150 (test code = 6768-6) Total Bilirubin (test 0.2 mg/dL 0.2-1.2 code = 1974-2) Sodium (test code = 139 meq/L 194-355 1750-2) Potassium (test code 4.7 meq/L 3.5-5.1 = 2823-3) Chloride (test code = 104 meq/L 98-107 2075-0) CO2 (test code = 25 meq/L 22-29 2028-9) BUN (test code = 10 mg/dL 7-21 3094-0) Creatinine (test code 0.70 mg/dL 0.57-1.25 = 2160-0) Glucose (test code = 159 mg/dL 70-105 H 2345-7) Calcium (test code = 8.8 mg/dL 8.4-10.2 29955-5) AST (test code = 9 U/L 5-34 1920-8) ALT (test code = 13 U/L 6-55 1742-6) EGFR (test code = 103 mL/min/1.[place] [address]-6) NOT ACCURATE CREATININE CLEARANCE IN PREDICTING GLOMERULAR FILTRATION RATE . ESTIMATED GFR I S NOT APPLICABLE FOR DIALYSIS PATIEN TS. JESSICA (test code = JESSICA) Machine Erector ID - BALA Mary Lab Interpretation Abnormal (test code = 18725-9) [facility] HospitalComprehenve metabolic [id number] 07:34:00 Test Item Value Reference Range Interpretation Comments Protein, Total (test 7.5 See_Comment [Autom ated code = 2885-2) message] The system which generated this result transmit yumiko reference range : 6.0 - 8.3 gm/dL . The reference range was not u sed to interpret th is result as normal/abnormal . Albumin (test code = 3.6 g/dL 3.5-5 48867-5) Alkaline Phosphatase 106 U/L 40-150 (test code = 6768-6) Total Bilirubin (test 0.2 mg/dL 0.2-1.2 code = 1974-2) Sodium (test code = 139 meq/L 042-356 5944-2) Potassium (test code 4.7 meq/L 3.5-5.1 = 2823-3) Chloride (test code = 104 meq/L 98-107 2075-0) CO2 (test code = 25 meq/L 22-29 2028-9) BUN (test code = 10 mg/dL 7-21 3094-0) Creatinine (test code 0.70 mg/dL 0.57-1.25 = 2160-0) Glucose (test code = 159 mg/dL 70-105 H 2345-7) Calcium (test code = 8.8 mg/dL 8.4-10.2 30844-9) AST (test code = 9 U/L 5-34 1920-8) ALT (test code = 13 U/L 6-55 1742-6) EGFR (test code = 103 mL/min/1.[place] [address]-5) NOT ACCURATE CREATININE CLEARANCE IN PREDICTING GLOMERULAR FILTRATION RATE . ESTIMATED GFR I S NOT APPLICABLE FOR DIALYSIS PATIEN TS. JESSICA (test code = JESSICA) Machine Erector ID - BALA M Lab Interpretation Abnormal (test code = 75973-2) [facility]COMPRE[facility]ENSIVE METABOLIC [id number] 07:34:00 Test Item Value Reference Range Interpretation [...] S NOT APPLICABLE FOR DIALYSIS PATIEN TS. Machine Erector ID - BALA MSARS-CoV2/RT-PCR (Asymptomatic ONLY)2020-09-04 12:52:00 Test Item Value Reference Range Interpretation Comments SARS-COV2/RT-PCR Negative Not Detected, (test code = Negative, See 17744-1) external report for linked test SARS-COV-2 [facility] PERFORMING LAB (test code = 30027-1) JESSICA (test code = Negative result for [...] of the Act. Fact Sheet for Healthcare Providers:https://www.[employer]/sites/default/f nito/product/documents/F act_Sheet_HC_Providers_L upa_XFQY-QkJ-3.pdf Fact Sheet for Healthcare Patients:https://www.[employer]/sites/default/fi les/product/documents/Fa ct_Sheet_Patients_Lyra_S ARS-CoV-2.pdf Performing Laboratory:[facility] [place] [address] [facility]As[facility]omatic ONLY)2020-09-04 12:52:00 Test Item Value Reference Range Interpretation Comments SARS-COV2/RT-PCR Negative Not Detected, (test code = Negative, See 34786-6) external report for linked test SARS-COV-2 [facility] PERFORMING LAB (test code = 21986-5) JESSICA (test code = Negative result for [...] of the Act. Fact Sheet for Healthcare Providers:https://www.[employer]/sites/default/f nito/product/documents/F act_Sheet_HC_Providers_L lxy_JFWB-MbA-3.pdf Fact Sheet for Healthcare Patients:https://www.[employer]/sites/default/fi les/product/documents/Fa ct_Sheet_Patients_Lyra_S ARS-CoV-2.pdf Performing Laboratory:[facility] [place] [address] [facility] (Asymptomatic ONLY)2020-09-04 12:52:00 Test Item Value Reference Range Interpretation Comments SARS-COV2/RT-PCR Negative Not Detected, (test code = Negative, See 77584-7) external report for linked test SARS-COV-2 [facility] PERFORMING LAB (test code = 94437-3) JESSICA (test code = Negative result for [...] of the Act. Fact Sheet for Healthcare Providers:https://www.[employer]/sites/default/f nito/product/documents/F act_Sheet_HC_Providers_L nqu_EVFD-UiM-8.pdf Fact Sheet for Healthcare Patients:https://www.[employer]/sites/default/fi les/product/documents/Fa ct_Sheet_Patients_Lyra_S ARS-CoV-2.pdf Performing Laboratory:[facility] [place] [address] [facility] ([facility])2020-09-04 12:52:00 Test Item Value Reference Range Interpretation Comments SARS-COV2/RT-PCR (test Negative Not Detected, Negative, code = 6090082) See external report for linked test SARS-COV-2 PERFORMING LAB [facility] (test code = 7912832) Negative result for this test determines that [...] 564(g) of the Act.Fact Sheet for Healthcare Providers:https://www.[employer]/sites/default/files/product/documents/Fact_Shee x_TU_Fmlkzoheo_Gzii_MYJA-LvJ-4.pdfFact Sheet for Healthcare Patients:https://www.[employer]/sites/default/files/product/ documents/Pmgk_Nextx_Xgpnbhtr_Tvbc_UJKO-DcI-0.pdfPerforming Laboratory:[facility], [place] [address] with platelet count + automated [id number] 06:38:00 Test Item Value Reference Range Interpretation Comments WBC (test code = 6690-2) 11.4 See_Comment H [A utomated message] The system [employer] generated this result transmitted ref erence range: 3.5 - 10 .5 K/L. The refe rence range was not u sed to interpret this result as normal/abnor mal. RBC (test code = 789-8) 4.35 See_Comment [Au tomated message] The system [employer] generated this result transmitted ref erence range: 3.93 - 5 .22 M/L. The refe rence range was not u sed to interpret this result as normal/abnor mal. MCHC (test code = 786-4) 28.0 See_Comment L [A utomated message] The system [employer] generated this result transmitted ref erence range: [...] See_Comment [Aut omated message] 777-3) The system [employer] generated this result transmitted ref erence range: 150 - 45 0 K/CU MM. The referen ce range was not u sed to interpret this result as normal/abnor mal. MPV (test code = 9.0 fL 9.4-12.3 L 64284-1) nRBC (test code = 413) 0 See_Comment [Aut omated message] The system [employer] generated this result transmitted ref erence range: [...] H [Aut omated message] 670) The system [employer] generated this result transmitted ref erence range: 1.56 - 6 .13 K/L. The refe rence range was not u sed to interpret this result as normal/abnor mal. # Lymphs (test code = 2.06 See_Comment [Auto mated message] 414) The system [employer] generated this result transmitted ref erence range: 1.18 - 3 .74 K/L. The refe rence range was not u sed to interpret this result as normal/abnor mal. # Monos (test code = 0.95 See_Comment H [Autom ated message] 415) The system [employer] generated this result transmitted ref erence range: 0.24 - 0 .36 K/L. The refe rence range was not u sed to interpret this result as normal/abnor mal. # Eos (test code = 416) 0.46 See_Comment H [Au tomated message] The system [employer] generated this result transmitted ref erence range: 0.04 - 0 .36 K/L. The refe rence range was not u sed to interpret this result as normal/abnor mal. # Baso (test code = 417) 0.03 See_Comment [A utomated message] The system [employer] generated this result transmitted ref erence range: 0.01 - 0 .08 K/L. The refe rence range was not u sed to interpret this result as normal/abnor mal. Immature 1 % 0-1 Granulocytes-Relative (test code = 2801) Lab Interpretation (test Abnormal code = 03495-0) [facility] with platelet count + automated [id number] 06:38:00 Test Item Value Reference Range Interpretation Comments WBC (test code = 6690-2) 11.4 See_Comment H [A utomated message] The system [employer] generated this result transmitted ref erence range: 3.5 - 10 .5 K/L. The refe rence range was not u sed to interpret this result as normal/abnor mal. RBC (test code = 789-8) 4.35 See_Comment [Au tomated message] The system [employer] generated this result transmitted ref erence range: 3.93 - 5 .22 M/L. The refe rence range was not u sed to interpret this result as normal/abnor mal. MCHC (test code = 786-4) 28.0 See_Comment L [A utomated message] The system [employer] generated this result transmitted ref erence range: [...] See_Comment [Aut omated message] 777-3) The system [employer] generated this result transmitted ref erence range: 150 - 45 0 K/CU MM. The referen ce range was not u sed to interpret this result as normal/abnor mal. MPV (test code = 9.0 fL 9.4-12.3 L 76812-6) nRBC (test code = 413) 0 See_Comment [Aut omated message] The system [employer] generated this result transmitted ref erence range: [...] H [Aut omated message] 670) The system [employer] generated this result transmitted ref erence range: 1.56 - 6 .13 K/L. The refe rence range was not u sed to interpret this result as normal/abnor mal. # Lymphs (test code = 2.06 See_Comment [Auto mated message] 414) The system [employer] generated this result transmitted ref erence range: 1.18 - 3 .74 K/L. The refe rence range was not u sed to interpret this result as normal/abnor mal. # Monos (test code = 0.95 See_Comment H [Autom ated message] 415) The system [employer] generated this result transmitted ref erence range: 0.24 - 0 .36 K/L. The refe rence range was not u sed to interpret this result as normal/abnor mal. # Eos (test code = 416) 0.46 See_Comment H [Au tomated message] The system [employer] generated this result transmitted ref erence range: 0.04 - 0 .36 K/L. The refe rence range was not u sed to interpret this result as normal/abnor mal. # Baso (test code = 417) 0.03 See_Comment [A utomated message] The system [employer] generated this result transmitted ref erence range: 0.01 - 0 .08 K/L. The refe rence range was not u sed to interpret this result as normal/abnor mal. Immature 1 % 0-1 Granulocytes-Relative (test code = 2801) Lab Interpretation (test Abnormal code = 23655-3) [facility] with platelet count + automated [id number] 06:38:00 Test Item Value Reference Range Interpretation Comments WBC (test code = 6690-2) 11.4 See_Comment H [A utomated message] The system [employer] generated this result transmitted ref erence range: 3.5 - 10 .5 K/L. The refe rence range was not u sed to interpret this result as normal/abnor mal. RBC (test code = 789-8) 4.35 See_Comment [Au tomated message] The system [employer] generated this result transmitted ref erence range: 3.93 - 5 .22 M/L. The refe rence range was not u sed to interpret this result as normal/abnor mal. MCHC (test code = 786-4) 28.0 See_Comment L [A utomated message] The system [employer] generated this result transmitted ref erence range: [...] See_Comment [Aut omated message] 777-3) The system [employer] generated this result transmitted ref erence range: 150 - 45 0 K/CU MM. The referen ce range was not u sed to interpret this result as normal/abnor mal. MPV (test code = 9.0 fL 9.4-12.3 L 96226-3) nRBC (test code = 413) 0 See_Comment [Aut omated message] The system [employer] generated this result transmitted ref erence range: [...] H [Aut omated message] 670) The system [employer] generated this result transmitted ref erence range: 1.56 - 6 .13 K/L. The refe rence range was not u sed to interpret this result as normal/abnor mal. # Lymphs (test code = 2.06 See_Comment [Auto mated message] 414) The system [employer] generated this result transmitted ref erence range: 1.18 - 3 .74 K/L. The refe rence range was not u sed to interpret this result as normal/abnor mal. # Monos (test code = 0.95 See_Comment H [Autom ated message] 415) The system [employer] generated this result transmitted ref erence range: 0.24 - 0 .36 K/L. The refe rence range was not u sed to interpret this result as normal/abnor mal. # Eos (test code = 416) 0.46 See_Comment H [Au tomated message] The system [employer] generated this result transmitted ref erence range: 0.04 - 0 .36 K/L. The refe rence range was not u sed to interpret this result as normal/abnor mal. # Baso (test code = 417) 0.03 See_Comment [A utomated message] The system [employer] generated this result transmitted ref erence range: 0.01 - 0 .08 K/L. The refe rence range was not u sed to interpret this result as normal/abnor mal. Immature 1 % 0-1 Granulocytes-Relative (test code = 2801) Lab Interpretation (test Abnormal code = 64447-9) [facility] W/PLT COUNT & AUTO [id number] 06:38:00 Test Item Value Reference Range Interpretation [...] PERCENT (BEAKER) (test code = 2801) Prothrombin time/[id number] 05:07:00 Test Item Value Reference Interpretation Comments [...] valves. Lab Interpretation Abnormal (test code = 65908-0) [facility]/[id number] 05:07:00 Test Item Value Reference Interpretation Comments [...] valves. Lab Interpretation Abnormal (test code = 43343-7) [facility]Pro[facility]/[id number] 05:07:00 Test Item Value Reference Interpretation Comments [...] valves. Lab Interpretation Abnormal (test code = 26952-4) [facility]PROT[facility]OM[facility]/[id number] 05:07:00 Test Item Value Reference Range Interpretation Comments PROTIME (BEAKER) 19.2 seconds 11.9-14.2 H (test code = 759) INR (BEAKER) (test 1.64 See_Comment [Automat ed message] code = 370) The system [employer] generated this result transmitted ref erence range: [...] See_Comment H [A utomated message] The system [employer] generated this result transmitted ref erence range: 3.5 - 10 .5 K/L. The refe rence range was not u sed to interpret this result as normal/abnor mal. RBC (test code = 789-8) 4.36 See_Comment [Au tomated message] The system [employer] generated this result transmitted ref erence range: 3.93 - 5 .22 M/L. The refe rence range was not u sed to interpret this result as normal/abnor mal. MCHC (test code = 786-4) 28.6 See_Comment L [A utomated message] The system [employer] generated this result transmitted ref erence range: [...] See_Comment [Aut omated message] 777-3) The system [employer] generated this result transmitted ref erence range: 150 - 45 0 K/CU MM. The referen ce range was not u sed to interpret this result as normal/abnor mal. MPV (test code = 8.9 fL 9.4-12.3 L 78037-0) nRBC (test code = 413) 0 See_Comment [Aut omated message] The system [employer] generated this result transmitted ref erence range: 0 - 0 /1 00 WBC. The refere nce range was not u sed to interpret this result as normal/abnor mal. Lab Interpretation (test Abnormal code = 68555-2) [facility] (Hemogram only)2020-09-02 04:59:00 Test Item Value Reference Range Interpretation Comments WBC (test code = 6690-2) 10.9 See_Comment H [A utomated message] The system [employer] generated this result transmitted ref erence range: 3.5 - 10 .5 K/L. The refe rence range was not u sed to interpret this result as normal/abnor mal. RBC (test code = 789-8) 4.36 See_Comment [Au tomated message] The system [employer] generated this result transmitted ref erence range: 3.93 - 5 .22 M/L. The refe rence range was not u sed to interpret this result as normal/abnor mal. MCHC (test code = 786-4) 28.6 See_Comment L [A utomated message] The system [employer] generated this result transmitted ref erence range: [...] See_Comment [Aut omated message] 777-3) The system [employer] generated this result transmitted ref erence range: 150 - 45 0 K/CU MM. The referen ce range was not u sed to interpret this result as normal/abnor mal. MPV (test code = 8.9 fL 9.4-12.3 L 00526-0) nRBC (test code = 413) 0 See_Comment [Aut omated message] The system [employer] generated this result transmitted ref erence range: 0 - 0 /1 00 WBC. The refere nce range was not u sed to interpret this result as normal/abnor mal. Lab Interpretation (test Abnormal code = 18878-4) [facility] (Hemogram only)2020-09-02 04:59:00 Test Item Value Reference Range Interpretation Comments WBC (test code = 6690-2) 10.9 See_Comment H [A utomated message] The system [employer] generated this result transmitted ref erence range: 3.5 - 10 .5 K/L. The refe rence range was not u sed to interpret this result as normal/abnor mal. RBC (test code = 789-8) 4.36 See_Comment [Au tomated message] The system [employer] generated this result transmitted ref erence range: 3.93 - 5 .22 M/L. The refe rence range was not u sed to interpret this result as normal/abnor mal. MCHC (test code = 786-4) 28.6 See_Comment L [A utomated message] The system [employer] generated this result transmitted ref erence range: [...] See_Comment [Aut omated message] 777-3) The system [employer] generated this result transmitted ref erence range: 150 - 45 0 K/CU MM. The referen ce range was not u sed to interpret this result as normal/abnor mal. MPV (test code = 8.9 fL 9.4-12.3 L 56462-7) nRBC (test code = 413) 0 See_Comment [Aut omated message] The system [employer] generated this result transmitted ref erence range: 0 - 0 /1 00 WBC. The refere nce range was not u sed to interpret this result as normal/abnor mal. Lab Interpretation (test Abnormal code = 56712-0) [facility] (HEMOGRAM ONLY)2020-09-02 04:59:00 Test Item Value [...] (BEAKER) (test code = 413) U/S, CORE [id number] 08:58:00Reason for exam:->BIOPSY LEFT ILIOPSOAS MASS US VS CT GUIDED [facility] VALLECHRISTIANE : 1960 Sex: FFINAL REPORT Procedure: Ultrasound-Guided left iliopsoas/inguinal mass core biopsy Pre/post-procedure diagnosis: Left iliopsoas/inguinal mass Data Capture Clerk: Abdirahman Chopra MD Assistants: none Sedation: Moderate [...] [facility] Reading [facility] - [facility] 1.310.12 US Core [id number] 08:58:00Interface, External Ris In - 09/01/2020 9:01 AM CDTFINAL REPORT Procedure: Ultrasound-Guided left iliopsoas/inguinal mass core biopsy Pre/post-procedure diagnosis: Left iliopsoas /inguinal mass Data Capture Clerk: Abdirahman Chopra MD Assistants: none Sedation: Moderate [...] [facility] Diagnostic Imaging Reading Room [place] [address] 1.310.12 [facility] 2020-[facility]-01 08:58:00Interface, External Ris In - 09/01/2020 9:01 AM CDTFINAL REPORT Procedure: Ultrasound-Guided left iliopsoas/inguinal mass core biopsy Pre/post-procedure diagnosis: Left iliopsoas /inguinal mass Data Capture Clerk: Abdirahman Chopra MD Assistants: none Sedation: Moderate [...] [facility] Reading [facility] - [facility] 1.310.12 [facility] 2020-09-01 08:58:00Interface, External Ris In - 09/01/2020 9:01 AM CDTFINAL REPORT Procedure: Ultrasound-Guided left iliopsoas/inguinal mass core biopsy Pre/post-procedure diagnosis: Left iliopsoas /inguinal mass Data Capture Clerk: Abdirahman Chopra MD Assistants: none Sedation: Moderate [...] Chopra Verified Date/Time: 09/01/2020 08:58:59 Reading Location: [facility] Diagnostic Imaging Reading Room [place] [address] 1.310.12 [facility] (HEMOGRAM ONLY)2020-09-01 05:07:00 Test Item Value Reference [...] 0-0 (BEAKER) (test code = 413) PROTHROMBIN TIME/[id number] 04:44:00 Test Item Value Reference Range Interpretation Comments PROTIME (BEAKER) 19.1 seconds 11.9-14.2 H (test code = 759) INR (BEAKER) (test 1.63 See_Comment [Automat ed message] code = 370) The system [employer] generated this result transmitted ref erence range: <=5.90. The reference range was not used to int erpret this result as normal/abnormal . RECOMMENDED COUMADIN/WARFARIN INR THERAPY RANGESSTANDARD DOSE: 2.0 - 3.0 Includes: PROPHYLAXIS forvenous thrombosis, systemic embolization; TREATMENT for venous thrombosis and/or pulmonary embolus.HIGH RISK: Target INR is 2.5-3.5 for patients with mechanical heart valves.Vitamin B12 and [id number] 06:16:00 Test Item Value Reference Range Interpretation Comments Vitamin B12 (test 327 pg/mL 213-816 code = 2132-9) Folate (test code = 3.70 ng/mL See_Comment L [Automa yumiko 2284-8) message] The system which generated this result transmit yumiko reference range : >=7.00. The reference range was not used to interpret this result as normal/abnormal . JESSICA (test code = JESSICA) Machine Erector ID - BALA M Lab Interpretation Abnormal (test code = 53118-0) [facility] [id number] 06:16:00 Test Item Value Reference Range Interpretation Comments Vitamin B12 (test 327 pg/mL 213-816 code = 2132-9) Folate (test code = 3.70 ng/mL See_Comment L [Automa yumiko 2284-8) message] The system which generated this result transmit yumiko reference range : >=7.00. The reference range was not used to interpret this result as normal/abnormal . JESSICA (test code = JESSICA) Machine Erector ID - BALA M Lab Interpretation Abnormal (test code = 23446-8) [facility] [id number] 06:16:00 Test Item Value Reference Range Interpretation Comments Vitamin B12 (test 327 pg/mL 213-816 code = 2132-9) Folate (test code = 3.70 ng/mL See_Comment L [Automa yumiko 2284-8) message] The system which generated this result transmit yumiko reference range : >=7.00. The reference range was not used to interpret this result as normal/abnormal . JESSICA (test code = JESSICA) Machine Erector ID - BALA M Lab Interpretation Abnormal (test code = 28696-6) [facility] AND [id number] 06:16:00 Test Item Value Reference Range Interpretation Comments VITAMIN B12 (BEAKER) 327 pg/mL 213-816 (test code = 774) FOLATE (BEAKER) 3.70 ng/mL See_Comment L [Automated message] (test code = 362) The system which generated this result transmitted ref erence range: >=7.00. The reference range was not used to interpr et this result as normal/abnormal . Machine Erector ID - BALA MPROTHROMBIN TIME/[id number] 05:36:00 Test Item Value Reference Range Interpretation [...] 0-0 (BEAKER) (test code = 413) CT, [id number] 11:32:00Unlisted Reason for Exam - Click Yes and Enter Reason Below->NoWill this procedure require oral contrast?->No [facility] : 1960 Sex: FFINAL [...] size and patent. Right lower extremity: The [employer], DFA, SFA, and popliteal arteries are patent. Trifurcation vessels are patent. Left lower extremity: The [employer], DFA, SFA, and popliteal arteries are patent. [...] Jayort Verified Date/Time: 08/30/2020 11:32:07 Reading Location: [facility] B1 P048 Angio Body Reading Room CT, CTA AAA, W/ BELLA.EXT.RUNOFF 2020-08-30 11:32:00LLE DVT, assess prior pelvic mass, please assess venous phaseAnesthesia:->None [facility] CENTERName: DANIEL DEL VALLE : [...] size and patent. Right lower extremity: The [employer], DFA, SFA, and popliteal arteries are patent. Trifurcation vessels are patent. Left lower extremity: The [employer], DFA, SFA, and popliteal arteries are patent. [...] MDReport Verified Date/Time: 08/30/2020 11:32:07 Reading Location: [place] [address] Angio Body Reading Room CT abdomen/pelvis with [...] size and patent. Right lower extremity: The [employer], DFA, SFA, and popliteal arteries are patent. Trifurcation vessels are patent. Left lower extremity: The [employer], DFA, SFA, and popliteal arteries are patent. [...] Jayort Verified Date/Time: 08/30/2020 11:32:07 Reading Location: [place] [address] Angio Body Reading Room [facility] and [id number] 11:32:00Interface, External Ris In - 08/30/2020 11:34 [...] size and patent. Right lower extremity: The [employer], DFA, SFA, and popliteal arteries are patent. Trifurcation vessels are patent. Left lower extremity: The [employer], DFA, SFA, and popliteal arteries are patent. [...] Verified Date/Time: 08/30/2020 11:32:07 Reading Location: [facility] B1 P048 Angio Body Reading Room [facility] with IV [id number] 11:32:00Interface, External Ris In - 08/30/2020 11:34 [...] size and patent. Right lower extremity: The [employer], DFA, SFA, and popliteal arteries are patent. Trifurcation vessels are patent. Left lower extremity: The [employer], DFA, SFA, and popliteal arteries are patent. [...] MDReport Verified Date/Time: 08/30/2020 11:32:07 Reading Location: [facility] P048 Angio Body Reading Room [facility] and [id number] 11:32:00Interface, External Ris In - 08/30/2020 11:34 [...] size and patent. Right lower extremity: The [employer], DFA, SFA, and popliteal arteries are patent. Trifurcation vessels are patent. Left lower extremity: The [employer], DFA, SFA, and popliteal arteries are patent. [...] MDReport Verified Date/Time: 08/30/2020 11:32:07 Reading Location: [facility] P048 Angio Body Reading Room [facility]vis with IV [id number] 11:32:00Interface, External Ris In - 08/30/2020 11:34 [...] size and patent. Right lower extremity: The [employer], DFA, SFA, and popliteal arteries are patent. Trifurcation vessels are patent. Left lower extremity: The [employer], DFA, SFA, and popliteal arteries are patent. [...] MDReport Verified Date/Time: 08/30/2020 11:32:07 Reading Location: [place] [address] Angio Body Reading Room [facility] and [id number] 11:32:00Interface, External Ris In - 08/30/2020 11:34 [...] size and patent. Right lower extremity: The [employer], DFA, SFA, and popliteal arteries are patent. Trifurcation vessels are patent. Left lower extremity: The [employer], DFA, SFA, and popliteal arteries are patent. [...] MDReport Verified Date/Time: 08/30/2020 11:32:07 Reading Location: [facility] P048 Angio Body Reading Room [facility], [id number] 09:31:54Ejection FractionSLEH ECHO HEARTLAB MKCKESSON CPA Left [...] + + + + + + !Mid SEALS ENGRAVER ! !59.4 ! ! ! + + +-- + + + !Dist SEALS ENGRAVER ! !61.6 ! ! ! + + [...] Study 08/29/2020 NEELAM Age 60 Visit Number [id number] Gender Female Accession Number [id number] Date of 1960 Referring [facility] Room Number 0555 Physician Richard Manager Truck Stacy Proctor Interpreting Vivek Benitez MD RVT [...] + + + + + + !Mid SEALS ENGRAVER ! !59.4 ! ! ! + + + + + + !Dist SEALS ENGRAVER ! !61.6 ! ! ! + + + ---------+ + + !Prox JANETTE ! !64.3 ! ! ! + + + +---- + + !Mid JANETTE ! !80.3 ! ! ! + + + + + + !Dist JANETTE ! !67.1 ! ! ! + + + + + +[facility], [id number] 09:31:54[facility] MK[facility]ON [facility] Left Impression1. [...] + + + + + + !Mid SEALS ENGRAVER ! !59.4 ! ! ! + + +-- + + + !Dist SEALS ENGRAVER ! !61.6 ! ! ! + + [...] Study 08/29/2020 NEELAM Age 60 Visit Number [id number] Gender Female Accession Number [id number] Date of 1960 [facility] Room Number 3116 Physician Richard Manager Truck Stacy Proctor Interpreting Vivek Benitez MD RVT [...] + + + + + + !Mid SEALS ENGRAVER ! !59.4 ! ! ! + + + + + + !Dist SEALS ENGRAVER ! !61.6 ! ! ! + + + ---------+ + + !Prox JANETTE ! !64.3 ! ! ! + + + +---- + + !Mid JANETTE ! !80.3 ! ! ! + + + + + + !Dist JANETTE ! !67.1 ! ! ! + + + + + +[facility], [id number] 09:31:54[facility] ECHO [facility]ART[facility] MKCKESSON [facility] Left Impression1. [...] + + + + + + !Mid SEALS ENGRAVER ! !59.4 ! ! ! + + +-- + + + !Dist SEALS ENGRAVER ! !61.6 ! ! ! + + [...] Study 08/29/2020 NEELAM Age 60 Visit Number [id number] Gender Female Accession Number [id number] Date of 1960 Referring [facility] Room Number 2546 Physician Richard Manager Truck Stacy Benitez MD RVT Physician ProcedureType of [...] + + + + + + !Mid SEALS ENGRAVER ! !59.4 ! ! ! + + + + + + !Dist SEALS ENGRAVER ! !61.6 ! ! ! + + + ---------+ + + !Prox JANETTE ! !64.3 ! ! ! + + + +---- + + !Mid JANETTE ! !80.3 ! ! ! + + + + + + !Dist JANETTE ! !67.1 ! ! ! + + + + + +[facility] HospitalB[facility] and [id number] 06:17:00 Test Item Value Reference Range Interpretation [...] mL/min/1.73 [place] [address]-2) NOT ACCURATE CREATININE CLEARANCE IN PREDICTING GLOMERULAR FILTRATION RATE . ESTIMATED GFR I S NOT APPLICABLE FOR DIALYSIS PATIEN TS. JESSICA (test code = Machine Erector ID - BS JESSICA) [facility] and [id number] 06:17:00 Test Item Value Reference Range Interpretation [...] mL/min/1.73 [place] [address]-5) NOT ACCURATE CREATININE CLEARANCE IN PREDICTING GLOMERULAR FILTRATION RATE . ESTIMATED GFR I S NOT APPLICABLE FOR DIALYSIS PATIEN TS. JESSICA (test code = Machine Erector ID - BS JESSICA) [facility] and Bcgbmkdwgf8539-00-25 06:17:00 Test Item Value Reference Range Interpretation [...] mL/min/1.73 [place] [address]-9) NOT ACCURATE CREATININE CLEARANCE IN PREDICTING GLOMERULAR FILTRATION RATE . ESTIMATED GFR I S NOT APPLICABLE FOR DIALYSIS PATIEN TS. JESSICA (test code = Machine Erector ID - BS JESSICA) [facility] AND CREATININE [id number] 06:17:00 Test Item Value Reference Range Interpretation Comments BLOOD UREA NITROGEN 13 mg/dL 7-21 (BEAKER) (test code = 354) CREATININE (BEAKER) 0.72 mg/dL 0.57-1.25 (test code = 358) BUN/CREAT RATIO 18 For a normal (BEAKER) (test code individu al on a = 8145117117) normal diet, t he reference inter jewel for the mass ra nabil ranges between 12:1 and 20:1 (BUN i n mg/dL/creatinin e in mg/dL) EGFR (BEAKER) (test 100 mL/min/1.73 ESTIM ATED GFR IS code = 1092) sq m NOT ACCURATE CREATININE CLEARANCE IN PREDICTING GLOMERULAR FILTRATION RATE . ESTIMATED GFR I S NOT APPLICABLE FOR DIALYSIS PATIEN TS. Machine Erector ID - BSCBC (HEMOGRAM ONLY)2020-08-30 05:50:00 Test [...] 0-0 (BEAKER) (test code = 413) PROTHROMBIN TIME/[id number] 05:48:00 Test Item Value Reference Range Interpretation Comments PROTIME (BEAKER) 21.5 seconds 11.9-14.2 H (test code = 759) INR (BEAKER) (test 1.89 See_Comment [Automat ed message] code = 370) The system [employer] generated this result transmitted ref erence range: [...] 1.0-2.0 units/mL once daily enoxaparin Ref: CHEST 2012;141:[id number] Lab Interpretation (test Normal code = 78776-3) [facility] HospitalHeparin Assay - Low Molecular [id number] 14:07:00 Test Item Value Reference Range Interpretation Comments Anti 10A-Lovenox (test 0.85 u/ml 0.6-2 code = 1605) JESSICA (test code = JESSICA) Anti-Factor 10-A Level (Heparin Assay for Low Molecular Weight Heparin)Monitoring Guidelines: Blood samples should be obtained 4 hours post subcutaneous injection (time of Peak level) Therapeutic Peak Levels: 0.6-1.0 units/mL twice daily enoxaparin 1.0-2.0 units/mL once daily enoxaparin Ref: CHEST 2012;141:[id number] Lab Interpretation (test Normal code = 16526-4) [facility] HospitalHeparin Assay - Low Molecular [id number] 14:07:00 Test Item Value Reference Range Interpretation Comments Anti 10A-Lovenox (test 0.85 u/ml 0.6-2 code = 1605) JESSICA (test code = JESSICA) Anti-Factor 10-A Level (Heparin Assay for Low Molecular Weight Heparin)Monitoring Guidelines: Blood samples should be obtained 4 hours post subcutaneous injection (time of Peak level) Therapeutic Peak Levels: 0.6-1.0 units/mL twice daily enoxaparin 1.0-2.0 units/mL once daily enoxaparin Ref: CHEST 2012;141:[id number] Lab Interpretation (test Normal code = 96404-3) [facility] HospitalHEPARIN ASSAY - LOW MOLECULAR [id number] 14:07:00 Test Item Value Reference Range Interpretation Comments LOVENOX-ANTI 10A (BEAKER) (test 0.85 u/ml 0.60-2.00 code = 1605) Anti-Factor 10-A Level (Heparin Assay for Low Molecular Weight Heparin)Monitoring Guidelines: Blood samples should be obtained 4 hours post subcutaneous injection (time of Peak level) Therapeutic Peak Levels: 0.6-1.0 units/mL twice daily enoxaparin 1.0-2.0 units/mL once daily enoxaparinRef: CHEST 2012;141:[id number] (HEMOGRAM ONLY)2020-08-29 13:22:00 Test Item Value Reference [...] 0-0 (BEAKER) (test code = 413) PROTHROMBIN TIME/[id number] 05:41:00 Test Item Value Reference Range Interpretation Comments PROTIME (BEAKER) 17.4 seconds 11.9-14.2 H (test code = 759) INR (BEAKER) (test 1.45 See_Comment [Automat ed message] code = 370) The system [employer] generated this result transmitted ref erence range: <=5.90. The reference range was not used to int erpret this result as normal/abnormal . RECOMMENDED COUMADIN/WARFARIN INR THERAPY RANGESSTANDARD DOSE: 2.0 - 3.0 Includes: PROPHYLAXIS forvenous thrombosis, systemic embolization; TREATMENT for venous thrombosis and/or pulmonary embolus.HIGH RISK: Target INR is 2.5-3.5 for patients with mechanical heart valves.BUN AND CREATININE [id number] 17:04:00 Test Item Value Reference Range Interpretation Comments BLOOD UREA NITROGEN 9 mg/dL 7-21 (BEAKER) (test code = 354) CREATININE (BEAKER) 0.79 mg/dL 0.57-1.25 (test code = 358) BUN/CREAT RATIO 11 For a normal (MEEAKER) (test code individu al on a = 9907729325) normal diet, t he reference inter jewel for the mass ra nabil ranges between 12:1 and 20:1 (BUN i n mg/dL/creatinin e in mg/dL) EGFR (HARDIK) (test 90 mL/min/1.73 ESTIMA YUMIKO GFR IS code = 1092) sq m NOT ACCURATE CREATININE CLEARANCE IN PREDICTING GLOMERULAR FILTRATION RATE . ESTIMATED GFR I S NOT APPLICABLE FOR DIALYSIS PATIEN TS. Machine Erector ID - DBVenous doppler leg, [id number] 15:52:54Ejection FractionSLEH ECHO HEARTLAB MKCKESSON CPACS Left [...] Study 08/28/2020 NEELAM Age 60 Visit Number [id number] Gender Female Accession Number [id number] Date of 1960 Referring Tricia Hernandez Room Number 2546 Physician Richard Manager Truck Jarad Mayberry Interpreting Vivek Benitez MD RVT [...] in cm/s ; Diameters are measured in [facility] Venous doppler leg, [id number] 15:52:54Ejection FractionSLE ECHO HEARTLAB MKCKESSON [facility] Left Impression1. There is partial echolucent deep [...] Study 08/28/2020 NEELAM Age 60 Visit Number [id number] Gender Female Accession Number [id number] Date of 1960 Referring [facility] Room Number 2546 Physician Elizabethmt Manager Truck Jarad Mayberry Interpreting Vivek Benitez MD RVT [...] in cm/s ; Diameters are measured in [facility] Venous doppler leg, [id number] 15:52:54Ejection FractionSLE ECHO HEARTLAB MKCKESSON [facility] Left Impression1. There is partial echolucent deep [...] Study 08/28/2020 NEELAM Age 60 Visit Number [id number] Gender Female Accession Number [id number] Date of 1960 Referring [facility] Room Number 2546 Physician Elizabethmt Manager Truck Jarad Mayberry Interpreting Vivek Benitez MD RVT [...] in cm/s ; Diameters are measured in [facility] SARS-COV2/RT-PCR ([facility])2020-08-28 12:32:00 Test Item Value Reference Range Interpretation Comments SARS-COV2/RT-PCR (test Negative Not Detected, Negative, code = 2583589) See external report for linked test SARS-COV-2 PERFORMING LAB [facility] (test code = 4824576) Negative result for this test determines that [...] 564(g) of the Act.Fact Sheet for Healthcare Providers:https://www.[employer].com/sites/default/files/product/documents/Fact_Shee o_GH_Lhqevdubj_Ktqd_NVZK-EvG-4.pdfFact Sheet for Healthcare Patients:https://www.[employer].com/sites/default/files/product/ documents/Pkyl_Amelq_Qswlsuek_Ppiy_TJFT-TjU-1.pdfPerforming Laboratory:[facility], [place] [address]ICOYABUPOWT TIME/INR 2020-08-28 05:15:00 Test Item Value Reference Range Interpretation Comments PROTIME (BEAKER) 16.1 seconds 11.9-14.2 H (test code = 759) INR (BEAKER) (test 1.31 See_Comment [Automat ed message] code = 370) The system [employer] generated this result transmitted ref erence range: [...] 0-0 (BEAKER) (test code = 413) PROTHROMBIN TIME/[id number] 16:24:00 Test Item Value Reference Range Interpretation Comments PROTIME (BEAKER) 14.7 seconds 11.9-14.2 H (test code = 759) INR (BEAKER) (test 1.20 See_Comment [Automat ed message] code = 370) The system [employer] generated this result transmitted ref erence range: [...] 0-0 (BEAKER) (test code = 413) PROTHROMBIN TIME/[id number] 14:53:00 Test Item Value Reference Range Interpretation Comments PROTIME (BEAKER) 10.1 seconds 9.8-12.0 (test code = 759) INR (BEAKER) (test 0.94 See_Comment [Automat ed message] code = 370) The system [employer] generated this result transmitted ref erence range: [...] 0-0 (BEAKER) (test code = 413) PROTHROMBIN TIME/[id number] 19:23:00 Test Item Value Reference Range Interpretation Comments PROTIME (BEAKER) 15.0 seconds 11.9-14.2 H (test code = 759) INR (BEAKER) (test 1.20 See_Comment [Automat ed message] code = 370) The system [employer] generated this result transmitted ref erence range: [...] 0-1 PERCENT (BEAKER) (test code = 2801) [id number] 07:38:00 Test Item Value Reference Range Interpretation Comments PTT (test code = 62.8 See_Comment H [Automated message] 89232-3) The system [employer] generated this result transmitted ref erence range: 22.5 - 3 6.0 seconds. The reference range was not used to int erpret this result as normal/abnormal . Lab Interpretation (test Abnormal code = 29622-9) [facility]aPTT2021-[facility] 07:38:00 Test Item Value Reference Range Interpretation Comments PTT (test code = 62.8 See_Comment H [Automated message] 25809-4) The system [employer] generated this result transmitted ref erence range: 22.5 - 3 6.0 seconds. The reference range was not used to int erpret this result as normal/abnormal . Lab Interpretation (test Abnormal code = 06616-0) [facility] 07:38:00 Test Item Value Reference Range Interpretation Comments PTT (test code = 62.8 See_Comment H [Automated message] 60719-1) The system [employer] generated this result transmitted ref erence range: 22.5 - 3 6.0 seconds. The reference range was not used to int erpret this result as normal/abnormal . Lab Interpretation (test Abnormal code = 11308-9) [facility]APTT2021-[facility] 07:38:00 Test Item Value Reference Range [...] WBC 0-0 (BEAKER) (test code = 413) [id number] 23:09:00 Test Item Value Reference Range Interpretation Comments PARTIAL THROMBOPLASTIN TIME 48.3 seconds 22.5-36.0 H (BEAKER) (test code = 760) [id number] 12:59:00 Test Item Value Reference Range Interpretation Comments PARTIAL THROMBOPLASTIN TIME 33.5 seconds 22.5-36.0 (BEAKER) (test code = 760) Basic Metabolic [id number] 06:56:00 Test Item Value Reference Range Interpretation Comments Sodium (test code = 140 meq/L 496-651 7883-2) Potassium (test 4.4 meq/L 3.5-5.1 code = 2823-3) Chloride (test code 100 meq/L 98-107 = 2075-0) CO2 (test code = 27 meq/L 2027-11) BUN (test code = 13 mg/dL 7-21 3094-0) Creatinine (test 0.81 mg/dL 0.57-1.25 code = 2160-0) Glucose (test code 101 mg/dL 70-105 = 2345-7) Calcium (test code 9.7 mg/dL 8.4-10.2 = 89311-6) EGFR (test code = 87 mL/min/1.73 [place] [address]-3) NOT ACCURATE CREATININE CLEARANCE IN PREDICTING GLOMERULAR FILTRATION RATE . ESTIMATED GFR I S NOT APPLICABLE FOR DIALYSIS PATIEN TSMaximiliano JESSICA (test code = Machine Erector ID - JESSICA) BALA Hernandez [facility] Metabolic [id number] 06:56:00 Test Item Value Reference Range Interpretation Comments Sodium (test code = 140 meq/L 488-445 3841-2) Potassium (test 4.4 meq/L 3.5-5.1 code = 2823-3) Chloride (test code 100 meq/L 98-107 = 2075-0) CO2 (test code = 27 meq/L -2027-11) BUN (test code = 13 mg/dL 7- 3094-0) Creatinine (test 0.81 mg/dL 0.57-1.25 code = 2160-0) Glucose (test code 101 mg/dL 70-105 = 2345-7) Calcium (test code 9.7 mg/dL 8.4-10.2 = 56397-0) EGFR (test code = 87 mL/min/1.[place] [address]-7) NOT ACCURATE CREATININE CLEARANCE IN PREDICTING GLOMERULAR FILTRATION RATE . ESTIMATED GFR I S NOT APPLICABLE FOR DIALYSIS PATIEN JESSICA (test code = Machine Erector ID - JESSICA) [facility] Metabolic [id number] 06:56:00 Test Item Value Reference Range Interpretation Comments Sodium (test code = 140 meq/L 720-351 1033-2) Potassium (test 4.4 meq/L 3.5-5.1 code = 2823-3) Chloride (test code 100 meq/L 98-107 = 2075-0) CO2 (test code = 27 meq/L 2027-11) BUN (test code = 13 mg/dL 7- 3094-0) Creatinine (test 0.81 mg/dL 0.57-1.25 code = 2160-0) Glucose (test code 101 mg/dL 70-105 = 2345-7) Calcium (test code 9.7 mg/dL 8.4-10.2 = 72089-1) EGFR (test code = 87 mL/min/1.73 [place] [address]-3) NOT ACCURATE CREATININE CLEARANCE IN PREDICTING GLOMERULAR FILTRATION RATE . ESTIMATED GFR I S NOT APPLICABLE FOR DIALYSIS PATIEN TSMaximiliano JESSICA (test code = Machine Erector ID - JESSICA) [facility] METABOLIC [id number] 06:56:00 Test Item Value Reference Range Interpretation [...] S NOT APPLICABLE FOR DIALYSIS PATIEN TS. Machine Erector ID - BALA MCBC (HEMOGRAM ONLY)2020-08-24 06:41:00 [...] WBC 0-0 (BEAKER) (test code = 413) [id number] 06:32:00 Test Item Value Reference Range Interpretation Comments PARTIAL THROMBOPLASTIN TIME 34.7 seconds 22.5-36.0 (BEAKER) (test code = 760) [id number] 22:03:00 Test Item Value Reference Range Interpretation Comments PARTIAL THROMBOPLASTIN TIME 36.0 seconds 22.5-36.0 (BEAKER) (test code = 760) [id number] 14:36:00 Test Item Value Reference Range Interpretation [...] (BEAKER) (test code = 413) BASIC METABOLIC [id number] 05:47:00 Test Item Value Reference Range Interpretation [...] S NOT APPLICABLE FOR DIALYSIS PATIEN TS. Machine Erector ID - BAL WCBC (HEMOGRAM ONLY)2020-08-23 05:19:00 [...] = 413) U/S, EXTREMITY, LOWER, LEFT (NON-VASCULAR) [id number] 15:15:00Please obtain biopsy of inguinal mass. Pending discharge Reason for exam:->Large left inguinal mass / lymphadenopathy [facility] CENTERName: DANIEL [facility] : [...] MDReport Verified Date/Time: 08/22/2020 15:15:14 Reading Location: [facility] C0[facility] Consult Reading Room US extremity non-vascular limited [id number] 15:15:00 Interface, External Ris In - 08/22/2020 [...] Muniz Verified Date/Time: 08/22/2020 15:15:14 Reading Location: [facility] C0[facility] Consult Reading Room Electronically signed by: Cassandra QUIJANO 08/22/2020 03:15 [facility]vascular [facility] [id number] 15:15:00Interface, External Ris In - 08/22/2020 3:17 [...] Muniz Verified Date/Time: 08/22/2020 15:15:14 Reading Location: [facility] C013 Consult Reading Room Electronically signed by: Cassandra QUIJANO 08/22/2020 03:15 [facility] extremity non- vascular limited [id number] 15:15:00Interface, External Ris In - 08/22/2020 3:17 [...] MDReport Verified Date/Time: 08/22/2020 15:15:14 Reading Location: [address] Consult Reading Room Electronically signed by: Cassandra QUIJANO 08/22/2020 03:15 [facility] METABOLIC [id number] 06:22:00 Test Item Value Reference Range Interpretation [...] S NOT APPLICABLE FOR DIALYSIS PATIEN TS. Machine Erector ID - BALA MC (HEMOGRAM ONLY)2020-08-22 05:57:00 [...] (BEAKER) (test code = 413) COMPREHENSIVE METABOLIC [id number] 07:02:00 Test Item Value Reference Range Interpretation [...] S NOT APPLICABLE FOR DIALYSIS PATIEN TS. Machine Erector ID - BALA MPROTHROMBIN TIME/[id number] 06:42:00 Test Item Value Reference Range Interpretation Comments PROTIME (BEAKER) 13.7 seconds 11.9-14.2 (test code = 759) INR (BEAKER) (test 1.08 See_Comment [Automat ed message] code = 370) The system [employer] generated this result transmitted ref erence range: [...] 413) RAD, SPINE, LUMBAR, 2 OR 3 [id number] 20:22:00Reason for exam:->low back pain, [facility] : 1960 Sex: FFINAL [...] LEFT 2020-08-20 20:22:00Reason for exam:->knee pain, fall [facility] CENTERName: DANIEL [facility] : [...] 2-3 VIEWS, LEFT, TO INCL PELVIS WHEN [id number] 20:22:00Reason for exam:->hip pain, fall [facility] CENTERName: DANIEL [facility] : [...] Date/Time: 08/20/2020 20:22:11 XR hip 2 views [id number] 20:22:00Interface, External Ris In - 08/20/2020 8:24 [...] Prateek Fung MDReport Verified Date/Time: 08/20/2020 20:22:11 [facility] 2 views [id number] 20:22:00Interface, External Ris In - 08/20/2020 8:24 [...] Prateek Fung MDReport Verified Date/Time: 08/20/2020 20:22:11 [facility] 2 views left 2020-08-20 20:22:00Interface, [...] Prateek Fung MDReport Verified Date/Time: 08/20/2020 20:22:11 [facility] spine lumbar 2 or 3 [id number] 20:22:00Interface, External Ris In - 08/20/2020 8:24 [...] Signed: Prateek Fung Verified Date/Time: 08/20/2020 20:22:11 [facility] lumbar 2 or 3 [id number] 20:22:00Interface, External Ris In - 08/20/2020 8:24 [...] Prateek Fung MDReport Verified Date/Time: 08/20/2020 20:22:11 [facility] spine lumbar 2 or 3 [id number] 20:22:00Interface, External Ris In - 08/20/2020 8:24 [...] Prateek Fung MDReport Verified Date/Time: 08/20/2020 20:22:11 [facility] knee 3 views left 2020-08-20 20:22:00Interface, [...] Prateek Fung MDReport Verified Date/Time: 08/20/2020 20:22:11 [facility] knee 3 views [id number] 20:22:00Interface, External Ris In - 08/20/2020 8:24 [...] Prateek Fung MDReport Verified Date/Time: 08/20/2020 20:22:11 [facility] knee 3 views left 2020-08-20 20:22:00Interface, [...] Prateek Fung MDReport Verified Date/Time: 08/20/2020 20:22:11 [facility] HospitalLactate dehydrogenase (LDH)2020-08-20 15:47:00 Test Item Value Reference Range Interpretation Comments LDH (test code = 2532-0) 228 U/L 125-220 H JESSICA (test code = JESSICA) Machine Erector ID - DB Lab Interpretation (test Abnormal code = 30459-2) [facility] HospitalMagnesium2021-06-[facility] 15:47:00 Test Item Value Reference Range Interpretation Comments Magnesium (test code = 2.2 mg/dL 1.6-2.6 85052-2) JESSICA (test code = JESSICA) Machine Erector ID - DB Lab Interpretation (test Normal code = 93100-9) [facility] HospitalPhosphorus2021-06-06 15:47:00 Test Item Value Reference Range Interpretation Comments Phosphorus (test code = 3.1 mg/dL 2.3-4.7 2777-1) JESSICA (test code = JESSICA) Machine Erector ID - DB Lab Interpretation (test Normal code = 08525-9) [facility] HospitalUric [id number] 15:47:00 Test Item Value Reference Range Interpretation Comments Uric Acid (test code = 5.1 mg/dL 2.6-7.2 3084-1) JESSICA (test code = JESSICA) Machine Erector ID - DB Lab Interpretation (test Normal code = 48252-7) [facility] HospitalLactate dehydrogenase (LDH)2020-08-20 15:47:00 Test Item Value Reference Range Interpretation Comments LDH (test code = 2532-0) 228 U/L 125-220 H JESSICA (test code = JESSICA) Machine Erector ID - DB Lab Interpretation (test Abnormal code = 49455-6) [facility] HospitalMagnesium2021-06-06 15:47:00 Test Item Value Reference Range Interpretation Comments Magnesium (test code = 2.2 mg/dL 1.6-2.6 55415-2) JESSICA (test code = JESSICA) Machine Erector ID - DB Lab Interpretation (test Normal code = 03549-1) [facility] HospitalPhosphorus2021-06-06 15:47:00 Test Item Value Reference Range Interpretation Comments Phosphorus (test code = 3.1 mg/dL 2.3-4.7 2777-1) JESSICA (test code = JESSICA) Machine Erector ID - DB Lab Interpretation (test Normal code = 39828-4) [facility] HospitalUric [id number] 15:47:00 Test Item Value Reference Range Interpretation Comments Uric Acid (test code = 5.1 mg/dL 2.6-7.2 3084-1) JESSICA (test code = JESSICA) Machine Erector ID - DB Lab Interpretation (test Normal code = 81164-9) [facility] HospitalLactate dehydrogenase (LDH)2020-08-20 15:47:00 Test Item Value Reference Range Interpretation Comments LDH (test code = 2532-0) 228 U/L 125-220 H JESSICA (test code = JESSICA) Machine Erector ID - DB Lab Interpretation (test Abnormal code = 56467-5) [facility] HospitalMagnesium2021-06-[facility] 15:47:00 Test Item Value Reference Range Interpretation Comments Magnesium (test code = 2.2 mg/dL 1.6-2.6 28792-1) JESSICA (test code = JESSICA) Machine Erector ID - DB Lab Interpretation (test Normal code = 70010-1) [facility] HospitalPhosphorus2021-[facility] 15:47:00 Test Item Value Reference Range Interpretation Comments Phosphorus (test code = 3.1 mg/dL 2.3-4.7 2777-1) JESSICA (test code = JESSICA) Machine Erector ID - DB Lab Interpretation (test Normal code = 03902-8) [facility] [id number] 15:47:00 Test Item Value Reference Range Interpretation Comments Uric Acid (test code = 5.1 mg/dL 2.6-7.2 3084-1) JESSICA (test code = JESSICA) Machine Erector ID - DB Lab Interpretation (test Normal code = 72733-1) [facility] HospitalCOMPREHENSIVE METABOLIC [id number] 15:47:00 Test Item Value Reference Range Interpretation [...] S NOT APPLICABLE FOR DIALYSIS PATIEN TS. Machine Erector ID - [id number] 15:47:00 Test Item Value Reference Range Interpretation Comments MAGNESIUM (BEAKER) (test code = 2.2 mg/dL 1.6-2.6 627) Machine Erector ID - WTMTPAVKDWXP6803-56-55 15:47:00 Test Item Value Reference Range Interpretation Comments PHOSPHORUS (BEAKER) (test code = 3.1 mg/dL 2.3-4.7 604) Machine Erector ID - DBURIC [id number] 15:47:00 Test Item Value Reference Range Interpretation Comments URIC ACID (BEAKER) (test code = 5.1 mg/dL 2.6-7.2 773) Machine Erector ID - DBLACTATE DEHYDROGENASE (LDH)2020-08-20 15:47:00 Test Item Value Reference Range Interpretation Comments LACTATE DEHYDROGENASE (BEAKER) (test 228 U/L 125-220 H code = 635) Machine Erector ID - [id number] W/PLT COUNT & AUTO [id number] 15:26:00 Test Item Value Reference Range Interpretation [...] (test code = 2801) AFB CULTURE + [id number] 17:40:00 Test Item Value Reference Range Interpretation Comments CULTURE (BEAKER) (test No acid-fast bacilli code = 1095) isolated in 42 days AFB SMEAR (BEAKER) No acid fast bacilli (test code = 994) seen AFB CULTURE + [id number] 16:47:00 Test Item Value Reference Range Interpretation Comments CULTURE (BEAKER) (test No acid-fast bacilli code = 1095) isolated in 42 days AFB SMEAR (BEAKER) No acid fast bacilli (test code = 994) seen FUNGUS CULTURE + [id number] 17:06:00 Test Item Value Reference Range Interpretation Comments CULTURE (BEAKER) (test No fungus isolated in code = 1095) 28 days FUNGUS SMEAR (BEAKER) No fungi seen (test code = 1406) FUNGUS CULTURE + [id number] 20:59:00 Test Item Value Reference Range Interpretation Comments CULTURE (BEAKER) (test No fungus isolated in code = 1095) 28 days FUNGUS SMEAR (BEAKER) No fungi seen (test code = 1406) POCT-GLUCOSE [id number] 17:00:00 Test Item Value Reference Range Interpretation Comments POC-GLUCOSE METER 193 mg/dL 70-110 H TESTED AT [facility] [address] (BEAKER) (test code [facility] = 1538) [place] [address] POCT-GLUCOSE [id number] 11:50:00 Test Item Value Reference Range Interpretation Comments POC-GLUCOSE METER 185 mg/dL 70-110 H TESTED AT [facility] [address] (BEAKER) (test code [facility] = 1538) [place] [address] CBC W/PLT COUNT & AUTO [id number] 09:22:00 Test Item Value Reference Range Interpretation [...] (BEAKER) (test code = 2801) BASIC METABOLIC [id number] 09:21:00 Test Item Value Reference Range Interpretation [...] NOT APPLICABLE FOR DIALYSIS PATIEN TS. C-REACTIVE [id number] 09:21:00 Test Item Value Reference Range Interpretation Comments C-REACTIVE PROTEIN (BEAKER) (test 2.31 mg/dL 0.00-0.50 H code = 676) HEPATIC FUNCTION [id number] 09:20:00 Test Item Value Reference Range Interpretation [...] code = 47 U/L 6-50 347) POCT-GLUCOSE [id number] 06:53:00 Test Item Value Reference Range Interpretation Comments POC-GLUCOSE METER 102 mg/dL 70-110 TESTED AT [facility] [address] (BEAKER) (test code [facility] = 1538) [place] [address] POCT-GLUCOSE [id number] 21:32:00 Test Item Value Reference Range Interpretation Comments POC-GLUCOSE METER 212 mg/dL 70-110 H TESTED AT [facility] [address] (BEAKER) (test code [facility] = 1538) [place] [address] POCT-GLUCOSE [id number] 16:26:00 Test Item Value Reference Range Interpretation Comments POC-GLUCOSE METER 170 mg/dL 70-110 H TESTED AT [facility] [address] (BEAKER) (test code [facility] = 1538) [place] [address] POCT-GLUCOSE [id number] 05:53:00 Test Item Value Reference Range Interpretation Comments POC-GLUCOSE METER 90 mg/dL 70-110 TESTED AT [facility] [address] [facility] (test code = [facility] 1538) [place] [address] POCT-GLUCOSE [id number] 21:52:00 Test Item Value Reference Range Interpretation Comments POC-GLUCOSE METER 130 mg/dL 70-110 H TESTED AT [facility] [address] ([facility] (test code [facility] = 1538) [place] [address] POCT-GLUCOSE [id number] 17:16:00 Test Item Value Reference Range Interpretation Comments POC-GLUCOSE METER 177 mg/dL 70-110 H TESTED AT [facility] [address] ([facility] (test code [facility] = 1538) [place] [address] [id number] 16:02:00 Test Item Value Reference Range Interpretation Comments POTASSIUM [facility] (test code = 3.9 meq/L 3.5-5.5 379) POCT-GLUCOSE [id number] 12:10:00 Test Item Value Reference Range Interpretation Comments POC-GLUCOSE METER 176 mg/dL 70-110 H TESTED AT [facility] [address] ([facility] (test code [facility] = 1538) [place] [address] POCT-GLUCOSE [id number] 05:57:00 Test Item Value Reference Range Interpretation Comments POC-GLUCOSE METER 113 mg/dL 70-110 H TESTED AT [facility] [address] ([facility] (test code [facility] = 1538) [place] [address] POCT-GLUCOSE [id number] 21:53:00 Test Item Value Reference Range Interpretation Comments POC-GLUCOSE METER 160 mg/dL 70-110 H TESTED AT [facility] [address] ([facility] (test code [facility] = 1538) [place] [address] POCT-GLUCOSE [id number] 16:49:00 Test Item Value Reference Range Interpretation Comments POC-GLUCOSE METER 158 mg/dL 70-110 H TESTED AT [facility] [address] ([facility] (test code [facility] = 1538) [place] [address] POCT-GLUCOSE [id number] 12:14:00 Test Item Value Reference Range Interpretation Comments POC-GLUCOSE METER 162 mg/dL 70-110 H TESTED AT [facility] [address] (BEAKER) (test code [facility] = 1538) [place] [address] BASIC METABOLIC [id number] 04:57:00 Test Item Value Reference Range Interpretation [...] PATIEN TS. CBC W/PLT COUNT & AUTO [id number] 04:28:00 Test Item Value Reference Range Interpretation [...] PERCENT (BEAKER) (test code = 2801) POCT-GLUCOSE [id number] 20:44:00 Test Item Value Reference Range Interpretation Comments POC-GLUCOSE METER 168 mg/dL 70-110 H TESTED AT [facility] [address] (BEAKER) (test code [facility] = 1538) [place] [address] POCT-GLUCOSE [id number] 16:10:00 Test Item Value Reference Range Interpretation Comments POC-GLUCOSE METER 228 mg/dL 70-110 H TESTED AT [facility] [address] (BEAKER) (test code [facility] = 1538) [place] [address] POCT-GLUCOSE [id number] 13:15:00 Test Item Value Reference Range Interpretation Comments POC-GLUCOSE METER 182 mg/dL 70-110 H TESTED AT [facility] [address] (BEAKER) (test code [facility] = 1538) [place] [address] POCT-GLUCOSE [id number] 06:57:00 Test Item Value Reference Range Interpretation Comments POC-GLUCOSE METER 153 mg/dL 70-110 H TESTED AT [facility] [address] ([facility]) (test code [facility] = 1538) [place] [address] POCT-GLUCOSE [id number] 21:27:00 Test Item Value Reference Range Interpretation Comments POC-GLUCOSE METER 146 mg/dL 70-110 H TESTED AT [facility] [address] ([facility]) (test code [facility] = 1538) [place] [address] POCT-GLUCOSE [id number] 17:17:00 Test Item Value Reference Range Interpretation Comments POC-GLUCOSE METER 134 mg/dL 70-110 H TESTED AT [facility] [address] ([facility]) (test code [facility] = 1538) [place] [address] POCT-GLUCOSE [id number] 13:49:00 Test Item Value Reference Range Interpretation Comments POC-GLUCOSE METER 177 mg/dL 70-110 H TESTED AT [facility] [address] ([facility]) (test code [facility] = 1538) [place] [address] POCT-GLUCOSE [id number] 05:34:00 Test Item Value Reference Range Interpretation Comments POC-GLUCOSE METER 118 mg/dL 70-110 H TESTED AT [facility] [address] ([facility]) (test code [facility] = 1538) [place] [address] POCT-GLUCOSE [id number] 21:14:00 Test Item Value Reference Range Interpretation Comments POC-GLUCOSE METER 149 mg/dL 70-110 H TESTED AT [facility] [address] ([facility]) (test code [facility] = 1538) [place] [address] POCT-GLUCOSE [id number] 17:44:00 Test Item Value Reference Range Interpretation Comments POC-GLUCOSE METER 132 mg/dL 70-110 H TESTED AT [facility] [address] ([facility]) (test code [employer] [facility] = 1538) [place] [address] POCT-GLUCOSE [id number] 12:21:00 Test Item Value Reference Range Interpretation Comments POC-GLUCOSE METER 168 mg/dL 70-110 H TESTED AT [facility] [address] (BEAKER) (test code [facility] = 1538) [place] [address] [id number] 05:19:00 Test Item Value Reference Range Interpretation Comments PARTIAL THROMBOPLASTIN TIME 84.3 seconds 23.2-36.1 H (BEAKER) (test code = 760) POCT-GLUCOSE [id number] 20:50:00 Test Item Value Reference Range Interpretation Comments POC-GLUCOSE METER 147 mg/dL 70-110 H TESTED AT [facility] [address] (BEAKER) (test [facility] 1538[facility] [place] [address] POCT-GLUCOSE [id number] 17:19:00 Test Item Value Reference Range Interpretation Comments POC-GLUCOSE METER 238 mg/dL 70-110 H TESTED AT [facility] [address] [facility] (test code [facility] = 1538) [place] [address] [id number] 15:09:00 Test Item Value Reference Range Interpretation Comments PARTIAL THROMBOPLASTIN TIME 74.8 seconds 23.2-36.1 H (BEAKER) (test code = 760) POCT-GLUCOSE [id number] 11:57:00 Test Item Value Reference Range Interpretation Comments POC-GLUCOSE METER 146 mg/dL 70-110 H TESTED AT [facility] [address] ([facility] (test code [facility] = 1538) [place] [address] POCT-GLUCOSE [id number] 05:37:00 Test Item Value Reference Range Interpretation Comments POC-GLUCOSE METER 139 mg/dL 70-110 H TESTED AT [facility] [address] ([facility] (test code [facility] = 1538) [place] [address] BASIC METABOLIC [id number] 04:04:00 Test Item Value Reference Range Interpretation [...] S NOT APPLICABLE FOR DIALYSIS PATIEN TS. [id number] 04:02:00 Test Item Value Reference Range Interpretation Comments PARTIAL THROMBOPLASTIN TIME 76.5 seconds 23.2-36.1 H (BEAKER) (test code = 760) CBC W/PLT COUNT & AUTO [id number] 03:41:00 Test Item Value Reference Range Interpretation [...] PERCENT (BEAKER) (test code = 2801) POCT-GLUCOSE [id number] 22:12:00 Test Item Value Reference Range Interpretation Comments POC-GLUCOSE METER 247 mg/dL 70-110 H TESTED AT [facility] [address] (BEAKER) (test code [facility] = 1538) [place] [address] [id number] 21:11:00 Test Item Value Reference Range Interpretation Comments PARTIAL THROMBOPLASTIN TIME 62.4 seconds 23.2-36.1 H (BEAKER) (test code = 760) [id number] 12:45:00 Test Item Value Reference Range Interpretation Comments PARTIAL THROMBOPLASTIN TIME 101.2 seconds 23.2-36.1 H (BEAKER) (test code = 760) POCT-GLUCOSE [id number] 11:48:00 Test Item Value Reference Range Interpretation Comments POC-GLUCOSE METER 259 mg/dL 70-110 H TESTED AT [facility] [address] (BEAKER) (test code [facility] = 1538) [place] [address] POCT-GLUCOSE [id number] 05:38:00 Test Item Value Reference Range Interpretation Comments POC-GLUCOSE METER 121 mg/dL 70-110 H TESTED AT [facility] [address] (BEAKER) (test code [facility] = 1538) [place] [address] [id number] 05:33:00 Test Item Value Reference Range Interpretation Comments PARTIAL THROMBOPLASTIN TIME 108.5 seconds 23.2-36.1 H (BEAKER) (test code = 760) POCT-GLUCOSE [id number] 20:59:00 Test Item Value Reference Range Interpretation Comments POC-GLUCOSE METER 197 mg/dL 70-110 H TESTED AT [facility] [address] (BEAKER) (test code [facility] = 1538) [place] [address] POCT-GLUCOSE [id number] 16:47:00 Test Item Value Reference Range Interpretation Comments POC-GLUCOSE METER 150 mg/dL 70-110 H TESTED AT [facility] [address] (BEAKER) (test code [facility] = 1538) [place] [address] [id number] 15:21:00 Test Item Value Reference Range Interpretation Comments PARTIAL THROMBOPLASTIN TIME 79.9 seconds 23.2-36.1 H (BEAKER) (test code = 760) POCT-GLUCOSE [id number] 12:52:00 Test Item Value Reference Range Interpretation Comments POC-GLUCOSE METER 207 mg/dL 70-110 H TESTED AT [facility] [address] (BEAKER) (test code [facility] = 1538) [place] [address] [id number] 09:17:00 Test Item Value Reference Range Interpretation Comments PARTIAL THROMBOPLASTIN TIME 95.7 seconds 23.2-36.1 H (BEAKER) (test code = 760) BASIC METABOLIC [id number] 02:36:00 Test Item Value Reference Range Interpretation [...] I S NOT APPLICABLE FOR DIALYSIS PATIEN [id number] 02:26:00 Test Item Value Reference Range Interpretation Comments PARTIAL THROMBOPLASTIN TIME 104.6 seconds 23.2-36.1 H (BEAKER) (test code = 760) CBC W/PLT COUNT & AUTO [id number] 02:18:00 Test Item Value Reference Range Interpretation [...] PERCENT (BEAKER) (test code = 2801) POCT-GLUCOSE [id number] 22:17:00 Test Item Value Reference Range Interpretation Comments POC-GLUCOSE METER 211 mg/dL 70-110 H TESTED AT [facility] [address] (BEAKER) (test code [facility] = 1538) [place] [address] [id number] 20:16:00 Test Item Value Reference Range Interpretation Comments PARTIAL THROMBOPLASTIN TIME 107.2 seconds 23.2-36.1 H (BEAKER) (test code = 760) POCT-GLUCOSE [id number] 16:24:00 Test Item Value Reference Range Interpretation Comments POC-GLUCOSE METER 167 mg/dL 70-110 H TESTED AT [facility] [address] (BEAKER) (test code [facility] = 1538) [place] [address] [id number] 14:17:00 Test Item Value Reference Range Interpretation Comments PARTIAL THROMBOPLASTIN TIME 96.3 seconds 23.2-36.1 H (BEAKER) (test code = 760) POCT-GLUCOSE [id number] 11:40:00 Test Item Value Reference Range Interpretation Comments POC-GLUCOSE METER 190 mg/dL 70-110 H TESTED AT [facility] [address] (BEAKER) (test code [facility] = 1538) [place] [address] [id number] 07:52:00 Test Item Value Reference Range Interpretation Comments PARTIAL THROMBOPLASTIN TIME 58.0 seconds 23.2-36.1 H (BEAKER) (test code = 760) BASIC METABOLIC [id number] 06:09:00 Test Item Value Reference Range Interpretation [...] S NOT APPLICABLE FOR DIALYSIS PATIEN TS. [id number] 05:53:00 Test Item Value Reference Range Interpretation Comments PARTIAL THROMBOPLASTIN TIME 138.1 seconds 23.2-36.1 H (BEAKER) (test code = 760) CBC W/PLT COUNT & AUTO [id number] 05:45:00 Test Item Value Reference Range Interpretation [...] GRANULOCYTES-RELATIVE PERCENT (BEAKER) (test code = 2801) [id number] 23:56:00 Test Item Value Reference Range Interpretation Comments PARTIAL THROMBOPLASTIN TIME 96.6 seconds 23.2-36.1 H (BEAKER) (test code = 760) POCT-GLUCOSE [id number] 21:22:00 Test Item Value Reference Range Interpretation Comments POC-GLUCOSE METER 160 mg/dL 70-110 H TESTED AT [facility] [address] (BEAKER) (test code [facility] = 1538) [place] [address] POCT-GLUCOSE [id number] 17:27:00 Test Item Value Reference Range Interpretation Comments POC-GLUCOSE METER 151 mg/dL 70-110 H TESTED AT [facility] [address] (BEAKER) (test code [facility] = 1538) [place] [address] [id number] 16:40:00 Test Item Value Reference Range Interpretation Comments PARTIAL THROMBOPLASTIN TIME 40.0 seconds 23.2-36.1 H (BEAKER) (test code = 760) POCT-GLUCOSE [id number] 13:43:00 Test Item Value Reference Range Interpretation Comments POC-GLUCOSE METER 164 mg/dL 70-110 H TESTED AT [facility] [address] (BEAKER) (test code [facility] = 1538) [place] [address] [id number] 13:34:00 Test Item Value Reference Range Interpretation Comments PARTIAL THROMBOPLASTIN TIME 141.6 seconds 23.2-36.1 H (BEAKER) (test code = 760) OCCULT BLOOD, [id number] 13:20:00 Test Item Value Reference Range Interpretation Comments FECAL OCCULT BLOOD (BEAKER) (test Negative Negative code = 618) BASIC METABOLIC [id number] 12:13:00 Test Item Value Reference Range Interpretation [...] APPLICABLE FOR DIALYSIS PATIEN TS. HEPATIC FUNCTION [id number] 12:13:00 Test Item Value Reference Range Interpretation [...] 6-50 347) CBC W/PLT COUNT & AUTO [id number] 11:47:00 Test Item Value Reference Range Interpretation [...] GRANULOCYTES-RELATIVE PERCENT (BEAKER) (test code = 2801) [id number] 06:33:00 Test Item Value Reference Range Interpretation Comments PARTIAL THROMBOPLASTIN TIME 102.3 seconds 23.2-36.1 H (BEAKER) (test code = 760) POCT-GLUCOSE [id number] 05:47:00 Test Item Value Reference Range Interpretation Comments POC-GLUCOSE METER 151 mg/dL 70-110 H TESTED AT [facility] [address] (BEAKER) (test code [facility] = 1538) [place] [address] BASIC METABOLIC [id number] 01:16:00 Test Item Value Reference Range Interpretation [...] 358) GLUCOSE RANDOM 154 mg/dL 70-110 H ([facility]) (test code = 652) CALCIUM (BEAKER) 8.1 mg/dL 8.5-10.5 L (test code = 697) EGFR (BEAKER) (test 106 mL/min/1.73 ESTIM ATED GFR IS code = 1092) sq m NOT ACCURATE CREATININE CLEARANCE IN PREDICTING GLOMERULAR FILTRATION RATE . ESTIMATED GFR I S NOT APPLICABLE FOR DIALYSIS PATIEN TS. [id number] 01:06:00 Test Item Value Reference Range Interpretation Comments PARTIAL THROMBOPLASTIN TIME 46.8 seconds 23.2-36.1 H [facility] (test code = 760) [id number] 23:18:00 Test Item Value Reference Range Interpretation Comments PARTIAL THROMBOPLASTIN TIME 177.9 seconds 23.2-36.1 HH ([facility]) (test code = 760) POCT-GLUCOSE [id number] 22:05:00 Test Item Value Reference Range Interpretation Comments POC-GLUCOSE METER 204 mg/dL 70-110 H TESTED AT [facility] [address] ([facility]) (test code [facility] = 1538) [place] [address] [id number] 16:35:00 Test Item Value Reference Range Interpretation Comments PARTIAL THROMBOPLASTIN TIME 47.9 seconds 23.2-36.1 H ([facility]) (test code = 760) POCT-GLUCOSE [id number] 16:33:00 Test Item Value Reference Range Interpretation Comments POC-GLUCOSE METER 167 mg/dL 70-110 H TESTED AT [facility] [address] ([facility]) (test code [facility] = 1538) [place] [address] [id number] 15:11:00 Test Item Value Reference Range Interpretation Comments PARTIAL THROMBOPLASTIN TIME 198.7 seconds 23.2-36.1 HH ([facility]) (test code = 760) POCT-GLUCOSE [id number] 12:08:00 Test Item Value Reference Range Interpretation Comments POC-GLUCOSE METER 166 mg/dL 70-110 H TESTED AT [facility] [address] ([facility]) (test code [facility] = 1538) [place] [address] [id number] 07:27:00 Test Item Value Reference Range Interpretation Comments PARTIAL THROMBOPLASTIN TIME 65.6 seconds 23.2-36.1 H (BEAKER) (test code = 760) [id number] 05:59:00 Test Item Value Reference Range Interpretation Comments PARTIAL THROMBOPLASTIN TIME 156.1 seconds 23.2-36.1 HH (BEAKER) (test code = 760) BASIC METABOLIC [id number] 05:54:00 Test Item Value Reference Range Interpretation [...] NOT APPLICABLE FOR DIALYSIS PATIEN TS. POCT-GLUCOSE [id number] 05:45:00 Test Item Value Reference Range Interpretation Comments POC-GLUCOSE METER 145 mg/dL 70-110 H TESTED AT [facility] [address] (BEAKER) (test code [facility] = 1538) [place] [address] CBC W/PLT COUNT & AUTO [id number] 05:36:00 Test Item Value Reference Range Interpretation [...] PERCENT (BEAKER) (test code = 2801) POCT-GLUCOSE [id number] 20:29:00 Test Item Value Reference Range Interpretation Comments POC-GLUCOSE METER 128 mg/dL 70-110 H TESTED AT [facility] [address] (BEAKER) (test code [facility] = 1538) [place] [address] POCT-GLUCOSE [id number] 16:58:00 Test Item Value Reference Range Interpretation Comments POC-GLUCOSE METER 160 mg/dL 70-110 H TESTED AT [facility] [address] (BEAKER) (test code [facility] = 1538) [place] [address] POCT-GLUCOSE [id number] 11:58:00 Test Item Value Reference Range Interpretation Comments POC-GLUCOSE METER 163 mg/dL 70-110 H TESTED AT [facility] [address] (BEAKER) (test code [facility] = 1538) [place] [address] [id number] 05:25:00 Test Item Value Reference Range Interpretation Comments PARTIAL THROMBOPLASTIN TIME 79.6 seconds 23.2-36.1 H (BEAKER) (test code = 760) CBC W/PLT COUNT & AUTO [id number] 05:18:00 Test Item Value Reference Range Interpretation [...] GRANULOCYTES-RELATIVE PERCENT (BEAKER) (test code = 2801) [id number] 21:47:00 Test Item Value Reference Range Interpretation Comments PARTIAL THROMBOPLASTIN TIME 85.4 seconds 23.2-36.1 H (BEAKER) (test code = 760) POCT-GLUCOSE [id number] 16:24:00 Test Item Value Reference Range Interpretation Comments POC-GLUCOSE METER 189 mg/dL 70-110 H TESTED AT [facility] [address] [address] (BEAKER) (test code [facility] = 1538) [place] [address] [id number] 13:02:00 Test Item Value Reference Range Interpretation Comments PARTIAL THROMBOPLASTIN TIME 51.8 seconds 23.2-36.1 H (BEAKER) (test code = 760) POCT-GLUCOSE [id number] 11:41:00 Test Item Value Reference Range Interpretation Comments POC-GLUCOSE METER 169 mg/dL 70-110 H TESTED AT [facility] [address] [address] (BEAKER) (test code [facility] = 1538) [place] [address] VITAMIN D, [id number] 08:15:00 Test Item Value Reference Range Interpretation Comments VITAMIN D 25-OH (BEAKER) (test code 5.4 ng/mL 6.6-49.9 L = 2764) Effective 12/25/2016: Reference Range ChangeNew: 6.6-49.9 ng/mL Previous: 13.0-47.8 ng/mLRecommended Vitamin D Target Range: 30.0-40.0 ng/mLPOCT-GLUCOSE [id number] 06:20:00 Test Item Value Reference Range Interpretation Comments POC-GLUCOSE METER 158 mg/dL 70-110 H TESTED AT [facility] [address] ([facility]) (test code [facility] = 1538) [place] [address] HEPATIC FUNCTION [id number] 05:45:00 Test Item Value Reference Range Interpretation Comments TOTAL PROTEIN (BEAKER) 6.5 gm/dL 6.0-8.5 Speci men markedly (test code = 770) hemolyzed ALBUMIN (BEAKER) (test 1.8 g/dL 3.5-5.0 L Speci men markedly code = 1145) hemolyzed BILIRUBIN TOTAL 1.2 mg/dL 0.1-1.3 Specimen michael may ([facility]) (test code = hemoly zed 377) BILIRUBIN DIRECT 0.1 mg/dL 0.0-0.5 Specimen abeba browning (BEAKER) (test code = hemoly zed 706) ALKALINE PHOSPHATASE 142 U/L 30-115 H (BEAKER) (test code = 346) AST (SGOT) (BEAKER) 49 U/L 5-40 H Specimen markedly (test code = 353) hemolyzed ALT (SGPT) (BEAKER) 28 U/L 6-50 Specimen markedly (test code = 347) hemolyzed [id number] 05:30:00 Test Item Value Reference Range Interpretation Comments PARTIAL THROMBOPLASTIN TIME 63.3 seconds 23.2-36.1 H (AKER) (test code = 760) Prior to initiating heparinCBC W/PLT COUNT & AUTO [id number] 05:23:00 Test Item Value Reference Range Interpretation [...] GRANULOCYTES-RELATIVE PERCENT (BEAKER) (test code = 2801) [id number] 00:59:00 Test Item Value Reference Range Interpretation Comments PARTIAL THROMBOPLASTIN TIME 62.3 seconds 23.2-36.1 H (BEAKER) (test code = 760) POCT-GLUCOSE [id number] 21:34:00 Test Item Value Reference Range Interpretation Comments POC-GLUCOSE METER 196 mg/dL 70-110 H TESTED AT [facility] [address] (BEAKER) (test code [facility] = 1538) [place] [address] [id number] 18:14:00 Test Item Value Reference Range Interpretation Comments PARTIAL THROMBOPLASTIN TIME 82.3 seconds 23.2-36.1 H (BEAKER) (test code = 760) POCT-GLUCOSE [id number] 17:01:00 Test Item Value Reference Range Interpretation Comments POC-GLUCOSE METER 192 mg/dL 70-110 H TESTED AT [facility] [address] (BEAKER) (test code [facility] = 1538) [place] [address] POCT-GLUCOSE [id number] 13:29:00 Test Item Value Reference Range Interpretation Comments POC-GLUCOSE METER 207 mg/dL 70-110 H TESTED AT [facility] [address] (BEAKER) (test code [facility] = 1538) [place] [address] [id number] 12:48:00 Test Item Value Reference Range Interpretation Comments PARTIAL THROMBOPLASTIN TIME 63.3 seconds 23.2-36.1 H (BEAKER) (test code = 760) CBC W/PLT COUNT & AUTO [id number] 12:25:00 Test Item Value Reference Range Interpretation [...] PERCENT (BEAKER) (test code = 2801) POCT-GLUCOSE [id number] 06:40:00 Test Item Value Reference Range Interpretation Comments POC-GLUCOSE METER 166 mg/dL 70-[place] [address] [address] (BEAKER) (test code [facility] = 1538) [place] [address] BUN AND [id number] 06:07:00 Test Item Value Reference Range Interpretation [...] 12 noon Amikacin Blood level draw. Thank [id number] 05:48:00 Test Item Value Reference Range Interpretation Comments PARTIAL THROMBOPLASTIN TIME 60.0 seconds 23.2-36.1 H ([facility]) (test code = 760) ANTI-NUCLEAR ANTIBODY (TAMMI)2017-11-20 00:24:00 Test Item Value Reference Range Interpretation Comments ANTI-NUCLEAR ANTIBODY (TAMMI) ([facility]) Negative Negative (test code = 418) Test performed by IFA method.Test performed by IFA method.[id number] 23:01:00 Test Item Value Reference Range Interpretation Comments PARTIAL THROMBOPLASTIN TIME 58.3 seconds 23.2-36.1 H ([facility]) (test code = 760) POCT-GLUCOSE [id number] 21:22:00 Test Item Value Reference Range Interpretation Comments POC-GLUCOSE METER 171 mg/dL 70-110 H TESTED AT [facility] [address] ([facility]) (test code [facility] = 1538) [place] [address] POCT-GLUCOSE [id number] 16:54:00 Test Item Value Reference Range Interpretation Comments POC-GLUCOSE METER 135 mg/dL 70-110 H TESTED AT [facility] [address] ([facility]) (test code [facility] = 1538) [place] [address] PERIPHERAL BLOOD SMEAR - PATHOLOGIST [id number] 15:35:00 Test Item Value Reference Range Interpretation Comments PERIPHERAL SMR REVIEW Neutrophilic ([facility]) (test code = leukocytosis with 2640) increased band forms and unremarkable WBC morphology. Normocytic anemia with unremarkable RBCs. Platelets unremarkable. No dysmorphic or blast forms seen. [id number] Nazario Becker M.D. ([facility]) (test code = (electronic signature) 2849) (MANUAL DIFFERENTIAL)2017-11-19 15:31:00 Test Item Value Reference Range Interpretation Comments NEUTROPHILS - REL (DIFF) ([facility]) 77 % (test code = 1359) LYMPHOCYTES [...] (BEAKER) (test code = 1+ few 480) [id number] 15:21:00 Test Item Value Reference Range Interpretation Comments PARTIAL THROMBOPLASTIN TIME 39.3 seconds 23.2-36.1 H (BEAKER) (test code = 760) POCT-GLUCOSE [id number] 13:08:00 Test Item Value Reference Range Interpretation Comments POC-GLUCOSE METER 140 mg/dL 70-110 H TESTED AT [facility] [address] (BEAKER) (test code [facility] = 1538) [place] [address] CBC W/PLT COUNT & AUTO [id number] 09:33:00 Test Item Value Reference Range Interpretation [...] (BEAKER) (test code = 413) BUN AND [id number] 08:45:00 Test Item Value Reference Range Interpretation [...] 12 noon Amikacin Blood level draw. Thank [id number] 08:27:00 Test Item Value Reference Range Interpretation Comments PARTIAL THROMBOPLASTIN TIME 29.5 seconds 23.2-36.1 (BEAKER) (test code = 760) POCT-GLUCOSE [id number] 04:48:00 Test Item Value Reference Range Interpretation Comments POC-GLUCOSE METER 142 mg/dL 70-110 H TESTED AT [facility] [address] ([facility]) (test code [facility] = 1538) [place] [address] RHEUMATOID FACTOR AB, REFLEX TO [id number] 01:10:00 Test Item Value Reference Range Interpretation Comments RHEUMATOID FACTOR (HARDIK) (test Negative code = 573) [id number] 00:56:00 Test Item Value Reference Range Interpretation [...] patients with mechanical heart valves.VENOUS DOPPLER LEGS, [id number] 22:05:00Reason for exam:->leukocytosis persistentFINAL REPORT CLINICAL HISTORY: [...] MDReport Verified Date/Time: 11/18/2017 22:05:25 Reading Location: [address] Reading Room POCT-GLUCOSE [id number] 20:56:00 Test Item Value Reference Range Interpretation Comments POC-GLUCOSE METER 111 mg/dL 70-110 H TESTED AT [facility] [address] (HARDIK) (test code [facility] = 1538) [place] [address] AMIKACIN LEVEL, [id number] 17:26:00 Test Item Value Reference Range Interpretation Comments AMIKACIN, TROUGH ([facility]) (test 10.3 ug/mL 4.0-8.0 HH code = 1830) Therapeutic Range (ug/mL)Peak: 25.0-35.0Trough: 4.0-8.0 Toxic: >35.0VENOUS DOPPLER ARMS, [id number] 16:59:00Reason for exam:->swelling right handAddendum BeginsREPORT STATUS:A Addendum:A left-sided PICC is visualized. End of addendum. Signed: Dangelo Proctoreport Verified Date/Time: 11/18/2017 16:59:45 Reading Location: [facility] Radiology Reading RoomAddendum EndsFINAL REPORT Bilateral upper [...] Proctoreport Verified Date/Time: 11/18/2017 15:36:41 Reading [facility] POCT-GLUCOSE [id number] 16:58:00 Test Item Value Reference Range Interpretation Comments POC-GLUCOSE METER 100 mg/dL 70-110 TESTED AT [facility] [address] (HARDIK) (test code [facility] = 1538) [place] [address] POCT-GLUCOSE [id number] 11:30:00 Test Item Value Reference Range Interpretation Comments POC-GLUCOSE METER 119 mg/dL 70-110 H TESTED AT [facility] [address] (BEAKER) (test code [facility] = 1538) [place] [address] HEPATITIS B SURFACE [id number] 11:18:00 Test Item Value Reference Range Interpretation Comments HEPATITIS B SURFACE ANTIBODY 436.5 mIU/mL <8.0 H (BEAKER) (test code = 647) HEPATITIS C [id number] 11:18:00 Test Item Value Reference Range Interpretation Comments HEPATITIS C ANTIBODY (BEAKER) Nonreactive Nonreactive (test code = 367) AMIKACIN LEVEL, [id number] 11:03:00 Test Item Value Reference Range Interpretation Comments AMIKACIN, PEAK (BEAKER) (test code 26.0 ug/mL 25.0-35.0 = 1831) Therapeutic Range (ug/mL)Peak: 25.0-35.0Trough: 4.0-8.0 Toxic: >35.0 SURGICALLY OBTAINED CULTURE + GRAM [id number] 08:25:00 Test Item Value Reference Interpretation Comments [...] No organisms seen (BEAKER) (test code = 400924) ANAEROBIC [id number] 07:53:00 Test Item Value Reference Range Interpretation Comments CULTURE (BEAKER) (test No anaerobes isolated code = 1095) GRAM STAIN RESULT 1+ WBCs (BEAKER) (test code = 1123) GRAM STAIN RESULT No organisms seen (BEAKER) (test code = 74505) POCT-GLUCOSE [id number] 06:37:00 Test Item Value Reference Range Interpretation Comments POC-GLUCOSE METER 135 mg/dL 70-110 H TESTED AT [facility] [address] (BEAKER) (test code [facility] = 1538) [place] [address] HIV-1 ANTIGEN WITH HIV-1/2 [id number] 05:51:00 Test Item Value Reference Range Interpretation Comments HIV-1 ANTIGEN WITH HIV 1\\T\\2 Nonreactive Nonreactive ANTIBODY (2) (BEAKER) (test code = 2586) HEPATITIS B SURFACE [id number] 05:46:00 Test Item Value Reference Range Interpretation Comments HEPATITIS B SURFACE ANTIGEN (2) Nonreactive Nonreactive (BEAKER) (test code = 2585) CBC W/PLT COUNT & AUTO [id number] 05:11:00 Test Item Value Reference Range Interpretation [...] code = 2801) Smear reviewed. Results confirmed.POCT-GLUCOSE [id number] 23:01:00 Test Item Value Reference Range Interpretation Comments POC-GLUCOSE METER 111 mg/dL 70-110 H TESTED AT [facility] [address] ([facility]) (test code [facility] = 1538) [place] [address] POCT-GLUCOSE [id number] 17:15:00 Test Item Value Reference Range Interpretation Comments POC-GLUCOSE METER 100 mg/dL 70-110 TESTED AT [facility] [address] ([facility]) (test code [facility] = 1538) [place] [address] C-REACTIVE [id number] 14:34:00 Test Item Value Reference Range Interpretation Comments C-REACTIVE PROTEIN ([facility]) (test 35.06 mg/dL 0.00-0.50 H code = 676) POCT-GLUCOSE [id number] 12:50:00 Test Item Value Reference Range Interpretation Comments POC-GLUCOSE METER 221 mg/dL 70-110 H TESTED AT [facility] [address] ([facility]) (test code [facility] = 1538) [place] [address] CBC W/PLT COUNT & AUTO [id number] 10:56:00 Test Item Value Reference Range Interpretation Comments WHITE BLOOD CELL COUNT 34.9 K/ L 4.0-10.0 H (AKER) (test code = 775) RED BLOOD CELL COUNT 3.27 M/ L 4.00-5.00 L (AKER) (test code = 761) HEMOGLOBIN ([facility]) 8.7 GM/DL 12.0-15.5 L (test code = [...] PERCENT (BEAKER) (test code = 2801) POCT-GLUCOSE [id number] 10:03:00 Test Item Value Reference Range Interpretation Comments POC-GLUCOSE METER 104 mg/dL 70-110 TESTED AT [facility] [address] (BEAKER) (test code [facility] = 1538) [place] [address] BASIC METABOLIC [id number] 04:51:00 Test Item Value Reference Range Interpretation [...] NOT APPLICABLE FOR DIALYSIS PATIEN TS. POCT-GLUCOSE [id number] 20:41:00 Test Item Value Reference Range Interpretation Comments POC-GLUCOSE METER 127 mg/dL 70-110 H TESTED AT [facility] [address] ([facility]) (test code [facility] = 1538) [place] [address] POCT-GLUCOSE [id number] 17:03:00 Test Item Value Reference Range Interpretation Comments POC-GLUCOSE METER 145 mg/dL 70-110 H TESTED AT [address] ([facility]) (test code [facility] = 1538) [place] [address] [id number] 12:39:00 Test Item Value Reference Range Interpretation Comments [facility] (test code 1.27 ng/mL <0.05 H = 3036) SEPSIS RISK (ng/mL)Low: 0.05-0.50Intermediate: 0.51-2.00High: >=2.01POCT-GLUCOSE [id number] 11:58:00 Test Item Value Reference Range Interpretation Comments POC-GLUCOSE METER 120 mg/dL 70-110 H TESTED AT [facility] [address] (BEAKER) (test code [facility] = 1538) [place] [address] CBC W/PLT COUNT & AUTO [id number] 09:50:00 Test Item Value Reference Range Interpretation [...] PERCENT (BEAKER) (test code = 2801) POCT-GLUCOSE [id number] 06:32:00 Test Item Value Reference Range Interpretation Comments POC-GLUCOSE METER 124 mg/dL 70-110 H TESTED AT [facility] [address] (BEAKER) (test code [facility] = 1538) [place] [address] BASIC METABOLIC [id number] 06:27:00 Test Item Value Reference Range Interpretation [...] APPLICABLE FOR DIALYSIS PATIEN TS. BUN AND [id number] 06:26:00 Test Item Value Reference Range Interpretation [...] APPLICABLE FOR DIALYSIS PATIEN TS. HEMOGLOBIN AND [id number] 06:03:00 Test Item Value Reference Range Interpretation Comments HEMOGLOBIN (BEAKER) (test code = 8.6 GM/DL 12.0-15.5 L 410) HEMATOCRIT (BEAKER) (test code = 25.9 % 36.0-46.0 L 411) CT, CHEST, WITHOUT [id number] 22:51:00FINAL REPORT CLINICAL HISTORY: Leukocytosis FINDINGS: Multiple [...] MDReport Verified Date/Time: 11/15/2017 22:51:35 Reading Location: [address] [place], [id number] 22:51:00FINAL REPORT CLINICAL HISTORY: Leukocytosis FINDINGS: Multiple [...] MDReport Verified Date/Time: 11/15/2017 22:51:35 Reading Location: [address] Reading Room POCT-GLUCOSE [id number] 21:14:00 Test Item Value Reference Range Interpretation Comments POC-GLUCOSE METER 128 mg/dL 70-110 H TESTED AT [facility] [address] (BEAKER) (test code [facility] = 1538) [place] [address] POCT-GLUCOSE [id number] 17:10:00 Test Item Value Reference Range Interpretation Comments POC-GLUCOSE METER 109 mg/dL 70-110 TESTED AT [facility] [address] (BEAKER) (test code [facility] = 1538) [place] [address] POCT-GLUCOSE [id number] 12:15:00 Test Item Value Reference Range Interpretation Comments POC-GLUCOSE METER 116 mg/dL 70-110 H TESTED AT [facility] [address] (BEAKER) (test code [facility] = 1538) [place] [address] SPIN/CONCENTRATION [id number] 10:39:00 Test Item Value Reference Range Interpretation Comments CONCENTRATION CHARGED (BEAKER) (test Done code = 2657) CBC W/PLT COUNT & AUTO [id number] 09:22:00 Test Item Value Reference Range Interpretation [...] (test code = 2801) TYPE AND SCREEN, [id number] 08:18:00 Test Item Value Reference Range Interpretation Comments ABO/RH AUTOMATED (BEAKER) (test B POSITIVE code = 2260) AB SCREEN (BEAKER) (test code = NEGATIVE 923) ANAEROBIC [id number] 07:55:00 Test Item Value Reference Range Interpretation Comments CULTURE (BEAKER) (test No anaerobes isolated code = 1095) BASIC METABOLIC [id number] 05:40:00 Test Item Value Reference Range Interpretation [...] APPLICABLE FOR DIALYSIS PATIEN TS. BUN AND [id number] 05:37:00 Test Item Value Reference Range Interpretation [...] APPLICABLE FOR DIALYSIS PATIEN TS. VANCOMYCIN LEVEL, [id number] 05:36:00 Test Item Value Reference Range Interpretation Comments VANCOMYCIN TROUGH (BEAKER) (test 17.5 ug/mL 10.0-20.0 code = 522) HEMOGLOBIN AND [id number] 05:23:00 Test Item Value Reference Range Interpretation Comments HEMOGLOBIN (BEAKER) (test code = 6.4 GM/DL 12.0-15.5 L 410) HEMATOCRIT (BEAKER) (test code = 19.3 % 36.0-46.0 LL 411) POCT-GLUCOSE [id number] 16:12:00 Test Item Value Reference Range Interpretation Comments POC-GLUCOSE METER 129 mg/dL 70-110 H TESTED AT [facility] [address] (BEAKER) (test code [employer] [facility] = 1538) [place] [address] POCT-GLUCOSE [id number] 12:07:00 Test Item Value Reference Range Interpretation Comments POC-GLUCOSE METER 114 mg/dL 70-110 H TESTED AT [facility] [address] (BEAKER) (test code [employer] [facility] = 1538) [place] [address] POCT-GLUCOSE [id number] 10:00:00 Test Item Value Reference Range Interpretation Comments POC-GLUCOSE METER 97 mg/dL 70-110 TESTED AT [facility] [address] (BEAKER) (test code = [facility] [place] [address] SURGICALLY OBTAINED CULTURE + GRAM [id number] 09:36:00 Test Item Value Reference Range Interpretation Comments CULTURE (BEAKER) (test code No growth = 1095) GRAM STAIN RESULT (BEAKER) <1+ WBCs (test code = 1123) GRAM STAIN RESULT (BEAKER) No organisms seen (test code = 25229) POCT-GLUCOSE [id number] 06:06:00 Test Item Value Reference Range Interpretation Comments POC-GLUCOSE METER 105 mg/dL 70-110 TESTED AT [facility] [address] (BEAKER) (test code [employer] [facility] = 1538) [place] [address] BASIC METABOLIC [id number] 05:55:00 Test Item Value Reference Range Interpretation [...] PATIEN TS. CBC W/PLT COUNT & AUTO [id number] 05:35:00 Test Item Value Reference Range Interpretation [...] H GRANULOCYTES-RELATIVE PERCENT (BEAKER) (test code = 2800) POCT-GLUCOSE [id number] 21:11:00 Test Item Value Reference Range Interpretation Comments POC-GLUCOSE METER 94 mg/dL 70-110 TESTED AT [facility] [address] (BEAKER) (test code = [facility] 1538) [place] [address] POCT-GLUCOSE [id number] 16:51:00 Test Item Value Reference Range Interpretation Comments POC-GLUCOSE METER 121 mg/dL 70-110 H TESTED AT [facility] [address] (BEAKER) (test code [facility] = 1538) [place] [address] POCT-GLUCOSE [id number] 15:10:00 Test Item Value Reference Range Interpretation Comments POC-GLUCOSE METER 97 mg/dL 70-110 TESTED AT [facility] [address] (BEAKER) (test code = [facility] 153) [place] [address] [id number] 10:17:00 Test Item Value Reference Range Interpretation Comments PROCALCITONIN (BEAKER) (test code 1.41 ng/mL <0.05 H = 3036) SEPSIS RISK (ng/mL)Low: 0.05-0.50Intermediate: 0.51-2.00High: >=2.01HEPATIC FUNCTION [id number] 09:52:00 Test Item Value Reference Range Interpretation [...] code = 12 U/L 6-50 347) POCT-GLUCOSE [id number] 05:57:00 Test Item Value Reference Range Interpretation Comments POC-GLUCOSE METER 87 mg/dL 70-110 TESTED AT [facility] [address] (BEAKER) (test code = [facility] 153) [place] [address] BASIC METABOLIC [id number] 05:34:00 Test Item Value Reference Range Interpretation [...] PATIEN TS. CBC W/PLT COUNT & AUTO [id number] 05:33:00 Test Item Value Reference Range Interpretation [...] (BEAKER) (test code = 2801) BUN AND [id number] 05:32:00 Test Item Value Reference Range Interpretation Comments BLOOD UREA NITROGEN 21 mg/dL 10-26 (BEAKER) (test code = 354) CREATININE (BEAKER) 0.79 mg/dL 0.50-1.20 (test code = 358) EGFR (BEAKER) (test 91 mL/min/1.73 ESTIMA YUMIKO GFR IS code = 1092) sq m NOT ACCURATE CREATININE CLEARANCE IN PREDICTING GLOMERULAR FILTRATION RATE . ESTIMATED GFR I S NOT APPLICABLE FOR DIALYSIS PATIEN TS. BLOOD [id number] 04:00:00 Test Item Value Reference Range Interpretation Comments CULTURE (BEAKER) (test No growth in 5 days code = 1095) BLOOD [id number] 01:00:00 Test Item Value Reference Range Interpretation Comments CULTURE (BEAKER) (test No growth in 5 days code = 1095) POCT-GLUCOSE [id number] 21:25:00 Test Item Value Reference Range Interpretation Comments POC-GLUCOSE METER 135 mg/dL 70-110 H TESTED AT [facility] [address] ([facility]) (test code [facility] = 1538) [place] [address] ANG, NON-TUNNELED CATH/PICC >5 Y.O.2017-11-12 17:59:00Reason for [...] [facility] Radiology Reading Room POCT-GLUCOSE [id number] 16:37:00 Test Item Value Reference Range Interpretation Comments POC-GLUCOSE METER 98 mg/dL 70-110 TESTED AT [facility] [address] ([facility]) (test code = [facility] 1538) [place] [address] PERIPHERAL BLOOD SMEAR - PATH REVIEW LAB [id number] 08:14:00 Test Item Value Reference Range Interpretation Comments PERIPHERAL SMR REVIEW Neutrophilic ([facility]) (test code = leukocytosis and 2640) microcytic anemia. No blast forms seen. [id number] Nazario Becker M.D. (BEAKER) (test code = (electronic signature) 9584) (MANUAL DIFFERENTIAL)2017-11-12 08:12:00 Test Item Value Reference [...] few 963) BODY FLUID CULTURE + GRAM [id number] 08:10:00 Test Item Value Reference Range Interpretation Comments CULTURE (BEAKER) (test No growth code = 1095) GRAM STAIN RESULT 3+ White blood cells (BEAKER) (test code = seen 1123) GRAM STAIN RESULT No organisms seen (BEAKER) (test code = 72757) POCT-GLUCOSE [id number] 06:18:00 Test Item Value Reference Range Interpretation Comments POC-GLUCOSE METER 113 mg/dL 70-110 H TESTED AT [facility] [address] [address] (BEAKER) (test code [facility] = 1538) [place] [address] CBC W/PLT COUNT & AUTO [id number] 04:40:00 Test Item Value Reference Range Interpretation [...] (BEAKER) (test code = 2801) BASIC METABOLIC [id number] 03:56:00 Test Item Value Reference Range Interpretation [...] APPLICABLE FOR DIALYSIS PATIEN TS. BUN AND [id number] 03:55:00 Test Item Value Reference Range Interpretation Comments BLOOD UREA NITROGEN 19 mg/dL 10-26 (BEAKER) (test code = 354) CREATININE (BEAKER) 0.81 mg/dL 0.50-1.20 (test code = 358) EGFR (BEAKER) (test 88 mL/min/1.73 ESTIMA YUMIKO GFR IS code = 1092) sq m NOT ACCURATE CREATININE CLEARANCE IN PREDICTING GLOMERULAR FILTRATION RATE . ESTIMATED GFR I S NOT APPLICABLE FOR DIALYSIS PATIEN TS. POCT-GLUCOSE [id number] 20:51:00 Test Item Value Reference Range Interpretation Comments POC-GLUCOSE METER 151 mg/dL 70-110 H TESTED AT [facility] [address] [address] (BEAKER) (test code [facility] = 1538) [place] [address] POCT-GLUCOSE [id number] 17:20:00 Test Item Value Reference Range Interpretation Comments POC-GLUCOSE METER 101 mg/dL 70-110 TESTED AT [facility] [address] [address] (BEAKER) (test code [facility] = 1538) [place] [address] SPIN/CONCENTRATION [id number] 15:42:00 Test Item Value Reference Range Interpretation Comments CONCENTRATION CHARGED (BEAKER) (test Done code = 2657) POCT-GLUCOSE [id number] 11:34:00 Test Item Value Reference Range Interpretation Comments POC-GLUCOSE METER 109 mg/dL 70-110 TESTED AT [facility] [address] [address] (BEAKER) (test code [facility] = 1538) [place] [address] VANCOMYCIN LEVEL, [id number] 09:14:00 Test Item Value Reference Range Interpretation Comments VANCOMYCIN TROUGH (BEAKER) (test 10.6 ug/mL 10.0-20.0 code = 522) BASIC METABOLIC [id number] 05:59:00 Test Item Value Reference Range Interpretation [...] APPLICABLE FOR DIALYSIS PATIEN TS. BUN AND [id number] 05:58:00 Test Item Value Reference Range Interpretation Comments BLOOD UREA NITROGEN 17 mg/dL 10-26 (BEAKER) (test code = 354) CREATININE (BEAKER) 0.80 mg/dL 0.50-1.20 (test code = 358) EGFR (BEAKER) (test 90 mL/min/1.73 ESTIMA YUMIKO GFR IS code = 1092) sq m NOT ACCURATE CREATININE CLEARANCE IN PREDICTING GLOMERULAR FILTRATION RATE . ESTIMATED GFR I S NOT APPLICABLE FOR DIALYSIS PATIEN TS. POCT-GLUCOSE [id number] 05:49:00 Test Item Value Reference Range Interpretation Comments POC-GLUCOSE METER 121 mg/dL 70-110 H TESTED AT [facility] [address] ([facility]) (test code [facility] = 1538) [place] [address] CBC W/PLT COUNT & AUTO [id number] 05:43:00 Test Item Value Reference Range Interpretation [...] PERCENT (BEAKER) (test code = 2801) POCT-GLUCOSE [id number] 00:07:00 Test Item Value Reference Range Interpretation Comments POC-GLUCOSE METER 150 mg/dL 70-110 H TESTED AT [facility] [address] [address] [facility] (test code [facility] = 1538) [place] [address] RAD, HIP, 1 VIEW, [id number] 23:51:00Reason for exam:->postopFINAL REPORT Right hip. HISTORY: Postoperative. COMPARISON STUDY: October 29, 2017. FINDINGS: A single frontal view of the right hip demonstrates a hemiarthroplasty in place. No cement is identified. There is no evidence of fracture or malalignment on this single projection. Signed: Alexandrea Martines MDReport Verified Date/Time: 11/10/2017 23:51:24 Reading Location: [facility] B1 C013X Ortho Consult Reading Room RAD, PELVIS, 1 OR 2 [id number] 23:22:00Reason for exam:->Hip ArthroplastyReason for exam:->X-Table Lateral [...] [place] Verified Date/Time: 11/10/2017 23:22:52 Reading Location: [facility] C0X Ortho Consult Reading Room POCT-GLUCOSE [id number] 22:54:00 Test Item Value Reference Range Interpretation Comments POC-GLUCOSE METER 140 mg/dL 70-110 H TESTED AT [address] [facility] (test code [facility] = 1538) [place] [address] POCT-GLUCOSE [id number] 16:57:00 Test Item Value Reference Range Interpretation Comments POC-GLUCOSE METER 98 mg/dL 70-110 TESTED AT [address] ([facility] (test code = [facility] 1538) [place] [address] POCT-GLUCOSE [id number] 12:41:00 Test Item Value Reference Range Interpretation Comments POC-GLUCOSE METER 111 mg/dL 70-110 H TESTED AT [address] ([facility] (test code [facility] = 1538) [place] [address] (MANUAL DIFFERENTIAL)2017-11-10 07:35:00 Test Item Value Reference [...] = 762) CBC W/PLT COUNT & AUTO [id number] 07:32:00 Test Item Value Reference Range Interpretation [...] 0-0 CELLS (BEAKER) (test code = 413) [id number] 07:25:00 Test Item Value Reference Range Interpretation Comments PHOSPHORUS (BEAKER) (test code = 3.5 mg/dL 2.5-4.5 604) [id number] 07:25:00 Test Item Value Reference Range Interpretation Comments MAGNESIUM (BEAKER) (test code = 1.7 mg/dL 1.5-3.0 627) BASIC METABOLIC [id number] 07:25:00 Test Item Value Reference Range Interpretation [...] NOT APPLICABLE FOR DIALYSIS PATIEN TS. POCT-GLUCOSE [id number] 06:45:00 Test Item Value Reference Range Interpretation Comments POC-GLUCOSE METER 121 mg/dL 70-110 H TESTED AT [facility] [address] [address] (BEAKER) (test code [employer] [facility] = 1538) [place] [address] POCT-GLUCOSE [id number] 22:14:00 Test Item Value Reference Range Interpretation Comments POC-GLUCOSE METER 124 mg/dL 70-110 H TESTED AT [facility] [address] (BEAKER) (test code [employer] [facility] = 1538) [place] [address] VANCOMYCIN LEVEL, [id number] 21:02:00 Test Item Value Reference Range Interpretation Comments VANCOMYCIN TROUGH (BEAKER) (test 9.6 ug/mL 10.0-20.0 L code = 522) POCT-GLUCOSE [id number] 17:22:00 Test Item Value Reference Range Interpretation Comments POC-GLUCOSE METER 98 mg/dL 70-110 TESTED AT [facility] [address] ([facility] (test code = [facility] 1536) [place] [address] POCT-GLUCOSE [id number] 11:36:00 Test Item Value Reference Range Interpretation Comments POC-GLUCOSE METER 127 mg/dL 70-110 H TESTED AT [facility] [address] (BEAKER) (test code [facility] = 1538) [place] [address] WOUND CULTURE + GRAM [id number] 11:05:00 Test Item Value Reference Interpretation Comments Range CULTURE ([facility]) (test ENTEROBACTER A <1+ E [...] No organisms seen (AKER) (test code = 790192) POCT-GLUCOSE [id number] 05:54:00 Test Item Value Reference Range Interpretation Comments POC-GLUCOSE METER 116 mg/dL 70-110 H TESTED AT [facility] [address] (BEAKER) (test code [facility] = 1538) [place] [address] [id number] 03:42:00 Test Item Value Reference Range Interpretation Comments PHOSPHORUS (BEAKER) (test code = 3.8 mg/dL 2.5-4.5 604) [id number] 03:42:00 Test Item Value Reference Range Interpretation Comments MAGNESIUM (BEAKER) (test code = 1.9 mg/dL 1.5-3.0 627) BASIC METABOLIC [id number] 03:42:00 Test Item Value Reference Range Interpretation [...] PATIEN TS. CBC W/PLT COUNT & AUTO [id number] 03:21:00 Test Item Value Reference Range Interpretation [...] PERCENT (BEAKER) (test code = 2801) POCT-GLUCOSE [id number] 20:55:00 Test Item Value Reference Range Interpretation Comments POC-GLUCOSE METER 122 mg/dL 70-110 H TESTED AT [facility] [address] (BEAKER) (test code [facility] = 1538) [place] [address] POCT-GLUCOSE [id number] 16:19:00 Test Item Value Reference Range Interpretation Comments POC-GLUCOSE METER 136 mg/dL 70-110 H TESTED AT [facility] [address] (BEAKER) (test code [employer] [facility] = 1538) [place] [address] HEMOGLOBIN AND [id number] 14:19:00 Test Item Value Reference Range Interpretation Comments HEMOGLOBIN (BEAKER) (test code = 8.1 GM/DL 12.0-15.5 L 410) HEMATOCRIT (BEAKER) (test code = 24.9 % 36.0-46.0 L 411) POCT-GLUCOSE [id number] 12:13:00 Test Item Value Reference Range Interpretation Comments POC-GLUCOSE METER 142 mg/dL 70-[address] [place] [address] [address] (BEAKER) (test code [facility] = 1538) [place] [address] POCT-GLUCOSE [id number] 06:02:00 Test Item Value Reference Range Interpretation Comments POC-GLUCOSE METER 109 mg/dL 70-110 TESTED AT [facility] [address] (BEAKER) (test code [facility] = 1538) [place] [address] POCT-GLUCOSE [id number] 05:38:00 Test Item Value Reference Range Interpretation Comments POC-GLUCOSE METER 150 mg/dL 70-110 H TESTED AT [facility] [address] [address] (BEAKER) (test code [facility] = 1538) [place] [address] TYPE AND SCREEN, [id number] 03:11:00 Test Item Value Reference Range Interpretation Comments ABO/RH AUTOMATED (BEAKER) (test B Positive code = 2260) AB SCREEN (BEAKER) (test code = Negative 923) HEMOGLOBIN AND [id number] 02:41:00 Test Item Value Reference Range Interpretation Comments HEMOGLOBIN (BEAKER) (test code = 5.9 GM/DL 12.0-15.5 LL 410) HEMATOCRIT (BEAKER) (test code = 18.2 % 36.0-46.0 LL 411) COMPREHENSIVE METABOLIC [id number] 01:43:00 Test Item Value Reference Range Interpretation [...] S NOT APPLICABLE FOR DIALYSIS PATIEN TS. [id number] 01:36:00 Test Item Value Reference Range Interpretation Comments PHOSPHORUS (BEAKER) (test code = 3.3 mg/dL 2.5-4.5 604) [id number] 01:36:00 Test Item Value Reference Range Interpretation Comments MAGNESIUM (BEAKER) (test code = 1.9 mg/dL 1.5-3.0 627) LACTIC ACID, VENOUS, WHOLE [id number] 01:29:00 Test Item Value Reference Range Interpretation Comments LACTATE BLOOD VENOUS (2) (BEAKER) 0.8 mmol/L 0.5-2.2 (test code = 2872) Effective 07/19/2015: Units/Reference Range ChangeNew: 0.5-2.2 mmol/L Previous: 5-20 mg/dLCBC W/PLT COUNT & AUTO [id number] 01:25:00 Test Item Value Reference Range Interpretation [...] PERCENT (BEAKER) (test code = 2801) POCT-GLUCOSE [id number] 21:52:00 Test Item Value Reference Range Interpretation Comments POC-GLUCOSE METER 113 mg/dL 70-110 H TESTED AT [facility] [address] [address] (BEAKER) (test code [place] [facility] = 1538) [place] [address] CT, EXTREMITY, LOWER WITHOUT CONTRAST, [id number] 19:15:00FINAL REPORT CT scan of the right [...] Martines Verified Date/Time: 11/07/2017 19:15:59 Reading Location: [address] Consult Reading Room RAD, HIP, 2 VIEWS, [id number] 16:19:00Reason for exam:->HIP PAIN FINAL REPORT INDICATION:Right [...] HOSPITAL Women CBC W/PLT COUNT & AUTO [id number] 16:00:00 Test Item Value Reference Range Interpretation [...] (BEAKER) (test code Normal = 762) C-REACTIVE [id number] 15:30:00 Test Item Value Reference Range Interpretation Comments C-REACTIVE PROTEIN (BEAKER) (test 47.39 mg/dL 0.00-0.50 H code = 676) COMPREHENSIVE METABOLIC [id number] 15:30:00 Test Item Value Reference Range Interpretation [...] APPLICABLE FOR DIALYSIS PATIEN TS. BASIC METABOLIC [id number] 06:26:00 Test Item Value Reference Range Interpretation [...] PATIEN TS. CBC W/PLT COUNT & AUTO [id number] 06:12:00 Test Item Value Reference Range Interpretation [...] L 0.00-0.20 (test code = 417) POCT-GLUCOSE [id number] 05:55:00 Test Item Value Reference Range Interpretation Comments POC-GLUCOSE METER 120 mg/dL 70-110 H TESTED AT [facility] [address] (BEAKER) (test code [employer] [facility] = 1538) [place] [address] POCT-GLUCOSE [id number] 21:07:00 Test Item Value Reference Range Interpretation Comments POC-GLUCOSE METER 121 mg/dL 70-110 H TESTED AT [facility] [address] (BEAKER) (test code [employer] [facility] = 1538) [place] [address] POCT-GLUCOSE [id number] 17:45:00 Test Item Value Reference Range Interpretation Comments POC-GLUCOSE METER 131 mg/dL 70-110 H TESTED AT [facility] [address] (BEAKER) (test code [facility] = 1538) [place] [address] HEMOGLOBIN AND [id number] 14:26:00 Test Item Value Reference Range Interpretation Comments HEMOGLOBIN (BEAKER) (test code = 7.9 GM/DL 12.0-15.0 L 410) HEMATOCRIT (BEAKER) (test code = 24.6 % 36.0-45.0 L 411) POCT-GLUCOSE [id number] 11:22:00 Test Item Value Reference Range Interpretation Comments POC-GLUCOSE METER 134 mg/dL 70-[place] [address] [address] (BEAKER) (test code [facility] = 1538) [place] [address] BASIC METABOLIC [id number] 05:16:00 Test Item Value Reference Range Interpretation [...] APPLICABLE FOR DIALYSIS PATIEN TS. Specimen recollected. [id number] 04:56:00 Test Item Value Reference Range Interpretation Comments POC-GLUCOSE METER 141 mg/dL 70-110 H TESTED [place] [facility] [address] (BEAKER) (test code [facility] = 1538) [place] [address] HEMOGLOBIN AND [id number] 04:10:00 Test Item Value Reference Range Interpretation [...] few 965) CBC W/PLT COUNT & AUTO [id number] 21:34:00 Test Item Value Reference Range Interpretation [...] 6.5-10.5 (BEAKER) (test code = 754) POCT-GLUCOSE [id number] 21:17:00 Test Item Value Reference Range Interpretation Comments POC-GLUCOSE METER 126 mg/dL 70-110 H TESTED AT [facility] [address] (BEAKER) (test code [facility] = 1538) [place] [address] POCT-GLUCOSE [id number] 18:04:00 Test Item Value Reference Range Interpretation Comments POC-GLUCOSE METER 117 mg/dL 70-110 H TESTED AT [facility] [address] (BEAKER) (test code [facility] = 1538) [place] [address] POCT-GLUCOSE [id number] 11:38:00 Test Item Value Reference Range Interpretation Comments POC-GLUCOSE METER 133 mg/dL 70-110 H TESTED AT [facility] [address] (BEAKER) (test code [facility] = 1538) [place] [address] BASIC METABOLIC [id number] 04:20:00 Test Item Value Reference Range Interpretation [...] APPLICABLE FOR DIALYSIS PATIEN TS. HEMOGLOBIN AND [id number] 04:11:00 Test Item Value Reference Range Interpretation Comments HEMOGLOBIN (BEAKER) (test code = 8.1 GM/DL 12.0-15.0 L 410) HEMATOCRIT (BEAKER) (test code = 25.6 % 36.0-45.0 L 411) POCT-GLUCOSE [id number] 04:03:00 Test Item Value Reference Range Interpretation Comments POC-GLUCOSE METER 151 mg/dL 70-110 H TESTED AT [facility] [address] ([facility]) (test code [facility] = 1538) [place] [address] RAD, HIP, 1 VIEW, [id number] 21:16:00Reason for exam:->postopShould this be performed at [...] [place] Verified Date/Time: 10/29/2017 21:16:21 Reading Location: [facility] C0T [facility] Re ading Room POCT-GLUCOSE [id number] 20:20:00 Test Item Value Reference Range Interpretation Comments POC-GLUCOSE METER 76 mg/dL 70-110 TESTED AT [facility] [address] (BEAKER) (test code = [facility] 1538) [place] [address] POCT-GLUCOSE [id number] 15:13:00 Test Item Value Reference Range Interpretation Comments POC-GLUCOSE METER 150 mg/dL 70-110 H TESTED AT [facility] [address] (BEAKER) (test code [facility] = 1538) [place] [address] RAD, HIP, OPERATIVE, [id number] 14:41:00Reason for exam:->RequiredFINAL REPORT RIGHT HIP ONE VIEW HISTORY: Right hip pain, right hip arthroplasty COMPARISON: None FINDINGS: Single intraoperative image of the right hip/low pelvis shows in progress changes of right hip total arthroplasty. A reamer is present in the proximal right femur. The acetabular region is obscured by overlying hardware. Signed: Ceci Aldrich Verified Date/Time: 10/29/2017 14:41:51 Reading Location: [facility] Radiology Reading Room POCT- GLUCOSE [id number] 09:53:00 Test Item Value Reference Range Interpretation Comments POC-GLUCOSE METER 104 mg/dL 70-110 TESTED AT [facility] [address] ([facility] (test code [facility] = 1538) [place] [address] BASIC METABOLIC [id number] 12:23:00 Test Item Value Reference Range Interpretation [...] APPLICABLE FOR DIALYSIS PATIEN TS. URINALYSIS W/ [id number] 12:21:00 Test Item Value Reference Range Interpretation [...] code = 1663) SOURCE(BEAKER) (test code = 2385) CBC W/PLT COUNT & AUTO [id number] 12:18:00 Test Item Value Reference Range Interpretation [...] L 0.00-0.20 (test code = 417) MRSA [id number] 08:33:00 Test Item Value Reference Range Interpretation Comments CULTURE (BEAKER) (test code No MRSA isolated = 1095)
[2021-05-08] MEDS ORDERED: HYDROMORPHONE HCL 1 MG/ML INJ ONE ×2 (18:49→19:06)
[2021-05-08] MEDS ORDERED: ONDANSETRON 4 MG/2 ML VIAL ONE ×2 (18:49→19:06)
[2021-05-08 18:52] LABS: Absolute Lymphocytes (CBC) 0.7 K/uL (0.7-4.9); Hematocrit 23.9 % (36.0-45.0); Lymphocytes % 10.4 % (15.3-44.8); MPV 7.4 fL (7.6-11.3)
[2021-05-08 19:36] LABS: BUN Blood Urea Nitrogen 10 mg/dL (7-18); Bicarbonate 30 mmol/L (21-32); Glucose Level 83 mg/dL (74-106); Lipase 90 U/L (73-393)
[2021-05-08 19:37] LABS: Potassium 2.5 mmol/L (3.5-5.1)
[2021-05-08] MEDS ORDERED: KCL 20 MEQ/100 mL IVPB 0 ML IV ONE (20:06)
[2021-05-08 20:12] LABS: Albumin 2.2 g/dL (3.4-5.0); Alkaline Phosphatase 81 U/L (45-117); Bilirubin Total 0.5 mg/dL (0.2-1.0); Protein, Total 6.6 g/dL (6.4-8.2)
[2021-05-08 20:13] LABS: ALT/SGPT < 6 U/L (12-78)
[2021-05-08 20:22] LABS: AST/SGOT 14 U/L (15-37); Anisocytosis 1+; Bilirubin Direct 0.2 mg/dL (0-0.2); Blood Morphology Comment NOTED (NOT SEEN); Platelet Estimate ADEQ; Sodium Level 142 mmol/L (136-145); White Blood Cell Scan OK (OK)
[2021-05-08] MEDS ORDERED: POTASSIUM 25 MEQ EFFERV TAB ONE ×2 (20:47→22:20)
--- NOTE | 2021-05-08 23:18 | EDPHYS ---
Physician Documentation [facility] Name: Sade Galdamez Age: 61 yrs Sex: Female : 1960 Arrival Date: 05/08/2021 Time: 17:42 Bed 14 Private MD: ED Physician Frankie Noriega HPI: 05/08 18:25 This 61 yrs old Black Female presents to ER via EMS with complaints of Left groin pain. ma2 18:25 61-year-old female, with left groin sarcoma, with chronic pain she is on Dilaudid 1 mg ma2 every 4 hours at home. She presented because she has severe pain despite taking Dilaudid, she would like a pain medication, patient states she had similar pain in the past no vomiting or diarrhea.. Historical: - Allergies: 17:48 Iodinated Contrast Media - IV Dye; cb5 17:48 iopamidol; cb5 - PMHx: 17:48 breast cancer; chemotherapy; Hypertension; Tumor to groin area; cb5 - PSHx: 17:48 ovi mastectomy; hysterectomy; cb5 - Immunization history:: Adult Immunizations up to date. - Social history:: Smoking status: unknown. - Family history:: not pertinent. ROS: 18:25 Negative for urinary frequency, burning with urination, bladder incontinence, ma2 vaginal bleeding. 18:25 Constitutional: Negative for fever, chills, and weight loss. 18:25 All other systems are negative. Exam: 18:25 Constitutional: This is a well developed, well nourished patient who is awake, alert, ma2 and in no acute distress. ENT: Nares patent. No nasal discharge, no septal abnormalities noted. Tympanic membranes are normal and external auditory canals are clear. Oropharynx with no redness, swelling, or masses, exudates, or evidence of obstruction, uvula midline. Mucous membranes moist. Neck: Trachea midline, no thyromegaly or masses palpated, and no cervical lymphadenopathy. Supple, full range of motion without nuchal rigidity, or vertebral point tenderness. No Meningismus. Chest/axilla: Normal chest wall appearance and motion. Nontender with no deformity. No lesions are appreciated. Cardiovascular: Regular rate and rhythm with a normal S1 and S2. No gallops, murmurs, or rubs. Normal PMI, no JVD. No pulse deficits. Respiratory: Lungs have equal breath sounds bilaterally, clear to auscultation and percussion. No rales, rhonchi or wheezes noted. No increased work of breathing, no retractions or nasal flaring. Abdomen/GI: Left groin sarcoma, no palpable abscess cellulitis or crepitations, otherwise abdomen is soft, non-tender, with normal bowel sounds. No distension or tympany. No guarding or rebound. No evidence of tenderness throughout. Vital Signs: 17:43 BP 134 / 67; Pulse 101; Resp 16; Temp 99.2(O); Pulse Ox 99% ; Weight 99.79 kg; Height 5 mb7 ft. 5 in. (165.10 cm); 19:00 BP 134 / 84 LA Supine (auto/reg); Pulse 97 MON; Resp 16; Temp 98.3(O); Pulse Ox 94% ; tk1 Pain 10/10; 20:30 BP 119 / 058 LA Supine (auto/reg); Pulse 91 MON; Resp 18 S; Pulse Ox 96% on R/A; Pain tk1 6/10; 21:30 BP 121 / 62 RA Supine (auto/reg); Pulse 90 MON; Resp 18 S; Pulse Ox 92% on R/A; Pain tk1 6/10; 22:30 BP 104 / 60 LA Supine (auto/reg); Pulse 93 MON; Resp 18 S; Pulse Ox 97% on R/A; Pain tk1 8/10; 23:30 BP 119 / 71 LA Supine (auto/reg); Pulse 99 MON; Resp 18 S; Temp 98(O); Pulse Ox 98% on tk1 R/A; Pain 8/10; 17:43 Body Mass Index 36.61 (99.79 kg, 165.10 cm) mb7 MDM: 18:00 Patient medically screened. ma2 18:25 Differential diagnosis: cervicitis, malignancy, Neoplasm nonspecific abdominal pain. ma2 23:14 Data reviewed: vital signs, nurses notes, lab test result(s), CBC, electrolytes. Data [facility] interpreted: Pulse oximetry: on room air is 97 %. Interpretation: normal. Counseling: I had a detailed discussion with the patient and/or guardian regarding: the historical points, exam findings, and any diagnostic results supporting the discharge/admit diagnosis, lab results, the need for outpatient follow up. Response to treatment: the patient's symptoms have markedly improved after treatment. ED course: Patient signed out to me at change of shift to take pending lab results. No acute distress, vital signs stable, neurovascularly intact, no focal neurological deficits. Tolerating p.o. intake without difficulty. Discussed all test results and findings with the patient and answered all of her questions. She reports chronic problem with low potassium and groin pain due to sarcoma which she states is terminal. She states that she is ready for discharge in ED will follow up with her primary doctor tomorrow. She was advised to return to ED if worsening symptoms or other urgent concerns.. 05/08 18:06 Order name: Basic Metabolic Panel [facility] 05/08 18:06 Order name: CBC with Diff [facility] 05/08 18:06 Order name: Hepatic Function [facility] 05/08 18:06 Order name: Lipase [facility] 05/08 18:07 Order name: Basic Metabolic Panel; Complete Time: 22:39 EDMS 05/08 18:07 Order name: CBC with Automated Diff; Complete Time: 22:01 EDMS 05/08 18:07 Order name: Liver (Hepatic) Function; Complete Time: 22:39 EDMS 05/08 18:07 Order name: Lipase; Complete Time: 22:39 EDMS 05/08 20:23 Order name: CBC Smear Scan; Complete Time: 22:01 EDMS 05/08 22:21 Order name: Magnesium; Complete Time: 22:39 EDMS 05/08 18:06 Order name: IV Saline Lock; Complete Time: 18:58 ar2 05/08 18:06 Order name: Labs collected and sent; Complete Time: 18:58 ma2 Administered Medications: 18:50 Drug: Dilaudid (HYDROmorphone) 1 mg Route: IVP; Site: right forearm; bp 19:58 Follow up: Response: Pain is decreased tk1 18:50 Drug: Zofran (Ondansetron) 4 mg Route: IVP; Site: right forearm; bp 19:58 Follow up: Response: Pain is decreased tk1 21:03 Not Given (Dr. Hari mercado with PO): Potassium Chloride 20 mEq IV at per protocol once; tk1 administer over 1-2 hours 21:04 Drug: Potassium Effervescent Tablet 50 mEq Route: PO; tk1 22:21 Follow up: Response: No adverse reaction tk1 22:21 Drug: Potassium Effervescent Tablet 50 mEq Route: PO; tk1 23:01 Follow up: Response: No adverse reaction tk1 Disposition Summary: 05/08/21 23:17 Discharge Ordered Location: Home [facility] Problem: chronic [facility] Symptoms: have improved [facility] Condition: Stable [facility] Diagnosis - Hypokalemia 7 - Chronic pain syndrome 7 - Neoplasm related pain (acute) (chronic) [facility] Followup: [facility] - With: Private Physician - When: 1 - 2 days - Reason: Worsening of condition, Recheck today's complaints, Continuance of care, Re-evaluation by your physician Discharge Instructions: - Discharge Summary Sheet [facility] - Chronic Pain, Adult [facility] - Hypokalemia [facility] Forms: - Medication Reconciliation Form [facility] - Thank You Letter [facility] - Antibiotic Education [facility] - Prescription Opioid Use [facility] Signatures: Dispatcher [employer] EDJarad Emmanuel RN RN Scott Cortez MD MD ar2 Frankie Noriega MD MD 7 Sheron Powell 1 Gaby Charlton RN RN cb5 Corrections: (The following items were deleted from the chart) 18:27 18:25 Constitutional: This is a well developed, well nourished patient who is awake, ma2 alert, and in no acute distress. ENT: Nares patent. No nasal discharge, no septal abnormalities noted. Tympanic membranes are normal and external auditory canals are clear. Oropharynx with no redness, swelling, or masses, exudates, or evidence of obstruction, uvula midline. Mucous membranes moist. Neck: Trachea midline, no thyromegaly or masses palpated, and no cervical lymphadenopathy. Supple, full range of motion without nuchal rigidity, or vertebral point tenderness. No Meningismus. Chest/axilla: Normal chest wall appearance and motion. Nontender with no deformity. No lesions are appreciated. Cardiovascular: Regular rate and rhythm with a normal S1 and S2. No gallops, murmurs, or rubs. Normal PMI, no JVD. No pulse deficits. Respiratory: Lungs have equal breath sounds bilaterally, clear to auscultation and percussion. No rales, rhonchi or wheezes noted. No increased work of breathing, no retractions or nasal flaring. Abdomen/GI: Left groin sarcoma, soft, non-tender, with normal bowel sounds. No distension or tympany. No guarding or rebound. No evidence of tenderness throughout. ma2 22:21 19:58 MAGNESIUM+C.LAB.BRZ ordered. EDMS EDMS
--- NOTE | 2021-05-08 23:18 | ER ---
Nurse's Notes [facility] Name: Sade Galdamez Age: 61 yrs Sex: Female : 1960 Arrival Date: 05/08/2021 Time: 17:42 Bed 14 Private MD: Diagnosis: Hypokalemia;Chronic pain syndrome;Neoplasm related pain (acute) (chronic) Presentation: 05/08 17:43 Chief complaint: Patient states: pain in left groin. pt states she has sarcoma, "this cb5 is it, its the end of the road" and was tearful. Coronavirus screen: Client denies travel out of the [place] in the last 14 days. At this time, the client does not indicate any symptoms associated with coronavirus-19. Ebola Screen: Patient negative for fever greater than or equal to 101.5 degrees Fahrenheit, and additional compatible Ebola Virus Disease symptoms Patient denies exposure to infectious person. Patient denies travel to an Ebola-affected area in the 21 days before illness onset. Initial Sepsis Screen: Does the patient meet any 2 criteria? No. Patient's initial sepsis screen is negative. Risk Assessment: Do you want to hurt yourself or someone else? Patient reports no desire to harm self or others. 17:43 Method Of Arrival: EMS: [facility] cb5 17:43 Acuity: ABDIRIZAK 3 cb5 17:48 Initial Sepsis Screen: Does the patient have a suspected source of infection? No. cb5 Patient's initial sepsis screen is negative. Triage Assessment: 17:46 General: Appears uncomfortable, well groomed, well developed, Behavior is calm, cb5 cooperative, appropriate for age. Pain: Complains of pain in pelvis Pain currently is 6 out of 10 on a pain scale. EENT: No deficits noted. Neuro: No deficits noted. Level of Consciousness is awake, alert, obeys commands, Oriented to person, place, time, situation, Appropriate for age. Cardiovascular: No deficits noted. Respiratory: No deficits noted. GI: No deficits noted. : No deficits noted. Derm: No deficits noted. Musculoskeletal: No deficits noted. Historical: - Allergies: 17:48 Iodinated Contrast Media - IV Dye; cb5 17:48 iopamidol; cb5 - PMHx: 17:48 breast cancer; chemotherapy; Hypertension; Tumor to groin area; cb5 - PSHx: 17:48 ovi mastectomy; hysterectomy; cb5 - Immunization history:: Adult Immunizations up to date. - Social history:: Smoking status: unknown. - Family history:: not pertinent. Screenin:48 Abuse screen: Denies threats or abuse. Denies injuries from another. Nutritional cb5 screening: No deficits noted. Tuberculosis screening: No symptoms or risk factors identified. Fall Risk None identified. Assessment: 17:47 General: Appears uncomfortable, well groomed, Behavior is calm, cooperative, cb5 appropriate for age. Pain: Complains of pain in pelvis Pain currently is 6 out of 10 on a pain scale. Neuro: No deficits noted. Level of Consciousness is awake, alert, obeys commands, Oriented to person, place, time, situation, Appropriate for age. Cardiovascular: No deficits noted. Respiratory: No deficits noted. GI: No deficits noted. : No deficits noted. EENT: No deficits noted. Derm: No deficits noted. Musculoskeletal: No deficits noted. Reports pain in pelvis. 18:52 General: instructed patient to use call light if she needs any assistance. Don't get cb5 out of bed without assistance.. 19:33 Reassessment: Assisted patient to commode x1 nurse. Assist x3 to return patient to tk1 stretcher after voiding. Voided clear, yellow urine. 21:00 Reassessment: Patient and/or family updated on plan of care and expected duration. Pain tk1 level reassessed. Patient is alert, oriented x 3, equal unlabored respirations, skin warm/dry/pink. Pain: Complains of pain in left leg Pain currently is 6 out of 10 on a pain scale. 22:00 Reassessment: No changes from previously documented assessment. Patient and/or family tk1 updated on plan of care and expected duration. Pain level reassessed. Patient is alert, oriented x 3, equal unlabored respirations, skin warm/dry/pink. Reassessment: Dr. Noriega updated on patient's pain. No new order received. Pain: Complains of pain in left leg Pain currently is 8 out of 10 on a pain scale. 05/09 00:32 Reassessment: Patient awaiting EMS to transport home via . Discharge instructions tk1 given to patient. Verbalized understanding. Vital Signs: 02/22 17:43 BP 134 / 67; Pulse 101; Resp 16; Temp 99.2(O); Pulse Ox 99% ; Weight 99.79 kg; Height 5 mb7 ft. 5 in. (165.10 cm); 19:00 BP 134 / 84 LA Supine (auto/reg); Pulse 97 MON; Resp 16; Temp 98.3(O); Pulse Ox 94% ; tk1 Pain 10/10; 20:30 BP 119 / 058 LA Supine (auto/reg); Pulse 91 MON; Resp 18 S; Pulse Ox 96% on R/A; Pain tk1 6/10; 21:30 BP 121 / 62 RA Supine (auto/reg); Pulse 90 MON; Resp 18 S; Pulse Ox 92% on R/A; Pain tk1 6/10; 22:30 BP 104 / 60 LA Supine (auto/reg); Pulse 93 MON; Resp 18 S; Pulse Ox 97% on R/A; Pain tk1 8/10; 23:30 BP 119 / 71 LA Supine (auto/reg); Pulse 99 MON; Resp 18 S; Temp 98(O); Pulse Ox 98% on tk1 R/A; Pain 8/10; 17:43 Body Mass Index 36.61 (99.79 kg, 165.10 cm) mb7 ED Course: 17:42 Patient arrived in ED. cb5 17:43 Gaby Charlton, RN is Primary Nurse. cb5 17:43 Patient has correct armband on for positive identification. Bed in low position. Call 5 light in reach. Side rails up X 1. Warm blanket given. neonatal intensive care nurse on. Pulse ox on. NIBP on. 17:46 Triage completed. cb5 17:48 No provider procedures requiring assistance completed. cb5 17:49 Arm band placed on. cb5 18:00 Scott Cortez MD is Attending Physician. ma2 18:40 Inserted saline lock: 22 gauge in right forearm, using aseptic technique. Blood bp collected. 18:57 Lipase Sent. cb5 18:57 Basic Metabolic Panel Sent. cb5 18:57 Liver (Hepatic) Function Sent. cb5 18:57 Basic Metabolic Panel Sent. cb5 18:58 CBC with Diff Sent. cb5 18:58 Hepatic Function Sent. cb5 18:58 Lipase Sent. cb5 19:00 Report given to Tammy Wells cb5 19:05 Attending Physician role handed off by Scott Cortez MD [facility] 19:05 Frankie Noriega MD is Attending Physician. mh7 23:45 IV discontinued, intact, bleeding controlled, No redness/swelling at site. Pressure tk1 dressing applied. Administered Medications: 18:50 Drug: Dilaudid (HYDROmorphone) 1 mg Route: IVP; Site: right forearm; bp 19:58 Follow up: Response: Pain is decreased tk1 18:50 Drug: Zofran (Ondansetron) 4 mg Route: IVP; Site: right forearm; bp 19:58 Follow up: Response: Pain is decreased tk1 21:03 Not Given (Dr. Hari mercado with PO): Potassium Chloride 20 mEq IV at per protocol once; tk1 administer over 1-2 hours 21:04 Drug: Potassium Effervescent Tablet 50 mEq Route: PO; tk1 22:21 Follow up: Response: No adverse reaction tk1 22:21 Drug: Potassium Effervescent Tablet 50 mEq Route: PO; tk1 23:01 Follow up: Response: No adverse reaction tk1 Output: 19:33 Urine: 200ml (Voided); Total: 200ml. tk1 Outcome: 23:17 Discharge ordered by . 7 23:30 Discharged to home via wheelchair. tk1 23:30 Condition: stable 23:30 Discharge instructions given to patient, Instructed on discharge instructions, follow up and referral plans. Demonstrated understanding of instructions, follow-up care. 05/09 00:36 Patient left the ED. tk1 Signatures: Lolis Clarke 5 Jarad Ahn, RN RN Scott Cortez MD MD mn2 Frankie Noriega MD MD Kinga Dubon Sheron Salomon tk1 Gaby Charlton, RN RN cb5 Corrections: (The following items were deleted from the chart) 05/08 22:21 21:05 MAGNESIUM+C.LAB.MUKESH drawn and sent. tk1 EDMS
[2021-05-09 02:43] VITALS: BP 119/71; TEMP 98; O2SAT 98
== END 2021-05-09 00:36 | disposition home or self-care (01) ==
LOC: ER 17:34
DX: G89.3 Neoplasm related pain (acute) (chronic) (principal); E87.6 Hypokalemia; G89.4 Chronic pain syndrome; C49.5 Malignant neoplasm of connective and soft tissue of pelvis; Z85.3 Personal history of malignant neoplasm of breast; Z90.13 Acquired absence of bilateral breasts and nipples; Z91.041 Radiographic dye allergy status
CPT/HCPCS: 36415; 80048; 80076; 83690; 83735; 85025; 96374; 96375; 99284; J1170; J2405; J3480

== ENCOUNTER 2021-05-09 12:40 | Emergency (ER) | payer OTHER ==
--- OUTSIDE RECORDS SUMMARY | 2021-05-09 12:50 | XMS REPORT | Continuity of Care Document ---
:1960 Author Organization [facility] t Address [address] [place] [address] Care Team Providers Name Role Phone LAWSON [...] Attending Clinician Isabelle Ramos MD Attending Clinician [phone] Lazaro LYNN Attending Clinician ANA PAULA TAVARES Attending Clinician Unavailable STEVE GARCIA Attending Clinician Unavailable Nile TEJADA Admitting Clinician Unavailable SCOTT Admitting Clinician Unavailable JAVI BRAY Admitting Clinician Unavailable LEONOR Admitting Clinician Unavailable BOOM CARLIN Admitting Clinician Unavailable NARGIS Admitting Clinician Unavailable STEVE GARCIA Admitting Clinician Unavailable Payers Payer Name Policy Type Policy Number Effective Date Expiration Date S [facility] MEDICARE A B [id number] AETNA OPEN ACCESS [id number] 2017 HMO NAP 00:00:00 AARP MEDICARE [id number] 2020 COMPLETE CHOICE 00:00:00 PLAN 2 [facility] [id number] [facility] - MEDICARE MGD 00:00:00 - Medical [facility] [id number] 2020-Present [facility] MEDICARE [id number] 2021 ADVANTAGE 00:00:00 MEDICARE PART A [id number] 2020 AND B 00:00:00 Problems Condition Condition Condition Status Onset Resolution Last Treating Co mments Source Name Details Category Date Date Treatment Clinician Date Venous Venous Disease Active [facility] obstructio 6-06 Bret kes - n n 00:00: Medical 00 Viola [place] [facility] [place] [facility] Disease Active [facility] [...] Stop Date Source Natural father Lung cancer [facility] Natural mother Diabetes [facility] Social History Social Habit Start Date Stop Date Quantity Comments Source Sex Assigned At [facility] Tobacco use and 2017-11-18 2017-11-18 Never used [facility]3] eladio - exposure 00:00:00 00:00:00 Medical Center Alcohol intake 2017-11-18 2017-11-18 Current drinker HOMAR Rodriguez - 00:00:00 00:00:00 of alcohol [facility] (finding) Alcohol Comment 2017-10-06 2017-10-06 SOCIALLY [facility] Bret eladio - 00:00:00 00:00:00 Medical Center Smoking Status Start Date Stop Date Source Never smoker [facility] Medications Ordered Filled Start Stop Current Ordering [...] kg Systolic blood 2020-09-06 16:21:00 161 mm[Hg] [facility] Diastolic blood 2020-09-06 16:21:00 75 mm[Hg] [facility] rate 2020-09-06 16:21:00 87 /min [facility] Body temperature 2020-09-06 16:21:00 35.78 Lovely [facility] Respiratory rate 2020-09-06 16:21:00 18 /min [facility] Oxygen saturation in 2020-09-06 16:21:00 97 /min [facility] Arterial blood by Medical Ce nter Pulse oximetry Body weight 2020-09-06 06:00:00 141.658 kg [facility] BMI 2020-09-06 06:00:00 50.41 kg/m2 [facility] Body height 2020-08-20 18:00:00 167.6 cm [facility] Procedures Procedure Date / Time Performed Performing Clinician [facility] e CT CHEST WITH IV CONTRAST 2020-09-05 12:35:00 Vandana Tejada [facility] COMPREHENSIVE METABOLIC 2020-09-05 05:16:00 Vandana Tejada [facility] 2D ECHO W/ DOPPLER 2020-09-05 01:05:41 Vandana Tejada [facility] (CW/PW/COLOR) [facility] SARS-COV2/RT-PCR ([facility] & 2020-09-03 21:48:00 Tricia Ramos [facility] - REF LABS) [facility] CBC W/PLT COUNT & AUTO 2020-09-03 06:17:00 Vandana Tejada [facility] CBC (HEMOGRAM ONLY) 2020-09-02 04:36:00 Hari Carlin [facility] PROTHROMBIN TIME/INR 2020-09-02 04:36:00 [facility] CBC (HEMOGRAM ONLY) 2020-09-01 03:48:00 Raegan [facility] PROTHROMBIN TIME/INR 2020-09-01 03:48:00 [facility] US CORE BIOPSY 2020-08-31 18:48:00 Vandana Tejada [facility] TISSUE EXAM 2020-08-31 18:37:00 Vandana Tejada [facility] VITAMIN B12 AND FOLATE 2020-08-31 04:45:00 Vandana Tejada [facility] CBC (HEMOGRAM ONLY) 2020-08-31 04:45:00 Raegan [facility] PROTHROMBIN TIME/INR 2020-08-31 04:45:[address] [facility] [address] ABDOMEN/PELVIS WITH IV 2020-08-30 10:28:00 Elizabethri [facility] CTA AAA AND RUNOFF 2020-08-30 10:28:00 [facility] BUN AND CREATININE 2020-08-30 05:17:00 [facility] CBC (HEMOGRAM ONLY) 2020-08-30 05:17:00 Raegan [facility] PROTHROMBIN TIME/INR 2020-08-30 05:17:00 [facility] HC ARTERIAL DOPPLER LEG 2020-08-29 16:05:[address] [facility] UNI [facility] CBC (HEMOGRAM ONLY) 2020-08-29 12:50:[facility] HEPARIN ASSAY - LOW 2020-08-29 12:50:[facility] - MOLECULAR WEIGHT [facility] CBC (HEMOGRAM ONLY) 2020-08-29 05:03:00 Raegan, [facility] PROTHROMBIN TIME/INR 2020-08-29 05:03:00 [facility] BUN AND CREATININE 2020-08-28 16:37:00 Traceyerri, [facility] - W/RATIO [facility] VENOUS DOPPLER LEG, LEFT 2020-08-28 12:43:[address] [facility] CBC (HEMOGRAM ONLY) 2020-08-28 04:42:00 Raegan, [facility] PROTHROMBIN TIME/INR 2020-08-28 04:42:00 [facility] SARS-COV2/RT-PCR ([facility] & 2020-08-27 18:10:00 GadicherriTricia C [facility] - REF LABS) [facility] PROTHROMBIN TIME/INR 2020-08-27 12:22:00 [facility] CBC (HEMOGRAM ONLY) 2020-08-27 04:06:00 Raegan [facility] PROTHROMBIN TIME/INR 2020-08-26 11:47:00 [facility] CBC (HEMOGRAM ONLY) 2020-08-26 11:47:00 [facility] CBC (HEMOGRAM ONLY) 2020-08-26 06:00:00 Raegan [facility] PROTHROMBIN TIME/INR 2020-08-25 18:11:00 SunKinga [facility] CBC W/PLT COUNT & AUTO 2020-08-25 14:27:00 [facility] CBC (HEMOGRAM ONLY) 2020-08-25 06:58:00 Raegan [facility] APTT 2020-08-25 06:49:00 [facility] 2020-08-24 22:45:00 [facility] 2020-08-24 12:42:00 [facility] BASIC METABOLIC PANEL (7) 2020-08-24 05:41:00 BorisTom yoon [facility] CBC (HEMOGRAM ONLY) 2020-08-24 05:41:00 Hari Carlin [facility] APTT 2020-08-24 05:41:00 [facility] AP[facility] 2020-08-23 21:14:00 [facility] CBC (HEMOGRAM ONLY) 2020-08-23 14:11:00 [facility] 2020-08-23 14:11:[address] [facility] VENOUS DOPPLER LEG, LEFT 2020-08-23 12:46:00 [facility] [facility] BASIC METABOLIC PANEL (7) 2020-08-23 04:08:00 [facility] ([facility] ONLY) 2020-08-23 04:08:00 Perla Carlineb Nur [facility] BASIC METABOLIC PANEL (7) 2020-08-22 05:37:00 BorisTom yoon [facility] CBC (HEMOGRAM ONLY) 2020-08-22 05:37:00 Hari Carlin [facility] US EXTREMITY NON-VASCULAR 2020-08-21 14:30:00 Raegan Harivenus killian [facility] CBC (HEMOGRAM ONLY) 2020-08-21 05:50:00 Hari Carlin [facility] COMPREHENSIVE METABOLIC 2020-08-21 05:50:[address] [facility] PROTHROMBIN TIME/INR 2020-08-21 05:50:00 Hari Carlin [facility] XR HIP 2 VIEWS LEFT 2020-08-20 18:25:00 Hari Carlin [facility] XR LUMBAR SPINE 2 OR 3 2020-08-20 18:20:[address] [facility] XR KNEE 3 VIEWS LEFT 2020-08-20 18:14:00 Hari Carlin [facility] CBC W/PLT COUNT & AUTO 2020-08-20 15:02:00 Hari Carlin [facility] DIFFERENTIAL [facility] COMPREHENSIVE METABOLIC 2020-08-20 15:02:00 Hari Carlin [facility] PANEL [facility] MAGNESIUM 2020-08-20 15:02:00 Hari Carlin [facility] PHOSPHORUS 2020-08-20 15:02:00 Hari Carlin [facility] LACTATE DEHYDROGENASE 2020-08-20 15:02:00 Hari Carlin [place] [facility] ([facility]) [facility] URIC ACID 2020-08-20 15:02:00 Hari Carlin [facility] Plan of Care Planned Activity Planned Date [...] Medica l Center colon (procedure) [code = 851526452] Future Scheduled 2018-11-[address] [facility] - Test 00:00:00 malignant neoplasm of [facility] colon (procedure) [code = 922192327] Future Scheduled 2018-11-[address] [facility] - Test 00:00:00 malignant neoplasm of [facility] colon (procedure) [code = 475609395] Future Scheduled 2017-10-[address] Bret kes - Test 00:00:00 measurement Medical Center (procedure) [code = 66707204] Future Scheduled 2017-10-[address] Bret kes - Test 00:00:00 measurement Medical Center (procedure) [code = 40371679] Future Scheduled 2017-10-[address] Bret kes - Test 00:00:00 measurement Medical Center (procedure) [code = 07815783] Future Scheduled 2010 SHINGLES VACCINES (1 [facility] [...] s - Test 00:00:00 (procedure) [code = [facility] 73038285] Future Scheduled [address] [facility] - Test 00:00:00 (procedure) [code = [facility] 68412527] Future Scheduled [address] - Test 00:00:00 (procedure) [code = [facility] 35790129] Future Scheduled [address] [facility] - Test 00:00:00 malignant neoplasm of [facility] Center cervix (procedure) [code = 421162183] Future Scheduled [address] [facility] - Test 00:00:00 malignant neoplasm of [facility] cervix (procedure) [code = 054970640] Future Scheduled [address] [facility] - Test 00:00:00 [facility] (procedure[facility] [code = 798236048] Future Scheduled 1979 DTAP/TDAP/TD VACCINES CH I [...] 00:00:00 examination Medical Center (regime/therapy) [code = 332658985] Future Scheduled 1970 Urine screening [facility] - Test 00:00:00 protein (procedure) Medical Center [code = 014010453] Future Scheduled 1970 DIABETIC EYE EXAM [facility] - Test 00:00:00 [code = DIABETIC EYE Medical Center EXAM] Future Scheduled [address] [facility] - Test 00:00:00 examination Medical Center (regime/therapy) [code = 123946760] Future Scheduled 1970 Urine screening [facility] - Test 00:00:00 protein (procedure) Medical Center [code = 704487007] Future Scheduled [address] DIABETIC EYE EXAM [facility] - Test 00:00:00 [code = DIABETIC EYE Medical Center EXAM] Future Scheduled [address] - Test 00:00:00 examination Medical Center (regime/therapy) [code = 821846571] Future Scheduled 1970 Urine screening [facility] - Test 00:00:00 protein (procedure) Medical Center [code = 705814750] Future Scheduled [address] [facility] [...] Medica l Center breast (procedure) [code = 789495194] Future Scheduled [address] [facility] - Test 00:00:00 [facility] breast (procedure) [code = 315249791] Future Scheduled [address] [facility] - Test 00:00:00 malignant neoplasm of [facility] breast (procedure) [code = 587834176] Encounters Start End Encounter Admission Attending Care Care Encounter Source Date/Time Date/Time Type Type Clinicians Facility Department ID 2020-12-24 Inpatient ER LOIDA TEJADA Inter Rad [id number] [facility] 00:09:17 VANDANA 2020-11-21 Outpatient SYSTEM, MDA JUAN [id number] 11:08:21 PROVIDER Holland gallego 2020-11-02 Inpatient EL MUNIZ, MDA MDA [id number] 23:20:41 GAURAV And erso R n 2020-11-02 Inpatient EL MUNIZ, JUAN MDA [id number] 23:20:37 [facility] And erso R n 2020-10-28 [facility] [id number] [facility] 00:00:00 Encounter [facility] 2020-10-17 Outpatient SYSTEM, JUAN MARTINEZ [id number] 12:21:12 PROVIDER Holland gallego 2021-04-03 2021-04-24 Inpatient ER DARLENE BELLE [facility] [id number] 15:10:00 12:50:00 Holland gallego 2021-04-23 2021-04-23 Inpatient EL BELÉN, MDA MDA [id number] 04:19:54 04:42:38 BRENDAN gallego 2021 2021 Inpatient EL MAYE, MDA MDA [id number] 17:08:59 17:35:08 BIJU gallego 2021-04-18 2021-04-18 Inpatient EL ZAULISESUR, MDA MDA [id number] 09:21:00 09:41:51 BRENDAN gallego 2021-04-17 2021-04-17 Inpatient EL DARLENE BELLE MDA MDA [id number] 03:37:16 03:55:45 Holland gallego 2021-04-15 2021-04-15 Inpatient EL SOMAIAH, MDA MDA [id number] MD 22:08:23 22:34:52 BOBRICK Lino o n 2021-04-13 2021-04-13 [facility] [id number] MD 08:40:41 09:10:01 BOBRICK Carsoners o n 2021-04-11 2021-04-11 Inpatient [facility], MDA MDA [id number] MD 02:08:42 02:31:26 BOBIRCK Carsoners o n 2021-04-09 2021-04-10 [facility] MDA [id number] MD 23:08:04 00:00:29 BOBRICK Carsoners o n 2021-04-09 2021-04-09 [facility] MDA [id number] MD 17:32:06 18:10:07 BOB Lino o lashonda 2021-04-08 2021-04-[address] [facility] MDA MDA [id number] MD 18:04:44 18:36:32 IBRETT Boaz so n 2021-04-08 2021-04-[address] [facility] MDA MDA [id number] MD 15:56:48 17:31:59 Rafal Abarcaer so n 2021-04-08 2021-04-[address] [facility] MDA MDA [id number] 15:56:44 17:31:57 CRIS AbarcaRUBA Sandra so n 2021-04-06 2021-04-06 Inpatient THEA CHAVEZ, MDA MDA [id number] MD 13:57:21 14:18:48 SUE gallego 2021-04-06 2021-04-06 Inpatient THEA VILLAVICENCIO, MDA MDA [id number] MD 11:21:56 12:02:57 BIJU gallego 2021-04-03 2021-04-03 Inpatient THEA CHAVEZ, MDA MDA [id number] MD 22:23:50 22:40:30 SUE gallego 2021-04-03 2021-04-03 Outpatient THEA MUNIZ, MDA MDA [id number] MD 14:49:10 15:17:14 GAURAV gallego 2021-03-06 2021-03-06 Outpatient EL NICK, MDA MDA [id number] 13:20:00 23:59:00 KRYSTA Sandra so n 2021-03-06 2021-03-06 Outpatient EL ASAF, MDA MDA [id number] 12:54:39 13:19:00 CLAUDIA singleton n 2021-03-06 2021-03-06 Outpatient EL MUNIZ, MDA MDA [id number] MD 09:00:00 12:53:00 GAURAV Ferreira derso R n 2021-03-06 2021-03-06 Outpatient EL MUNZI, MDA MDA [id number] 10:05:13 11:24:37 GAURAV An derso R n 2021-03-02 2021-03-02 Outpatient EL ASAF, MDA MDA [id number] 11:00:00 23:59:00 CLAUDIA singleton n 2021-03-01 2021-03-01 Outpatient EL ASAF, MDA MDA [id number] 11:57:34 12:10:03 CLAUDIA singleton n 2021-03-01 2021-03-01 Outpatient EL MUNIZ, MDA MDA [id number] 12:08:46 12:08:46 GAURAV An derso R n 2021-02-20 2021-02-20 Outpatient EL MUNIZ, MDA MDA [id number] 12:57:43 17:49:39 GAURAV Ferreira derso R n 2021-02-16 2021-02-16 Outpatient EL MUNIZ, MDA MDA [id number] 08:46:05 08:46:05 GAURAV An derso R n 2021-02-16 2021-02-16 Outpatient EL MUNIZ, MDA MDA [id number] MD 08:46:01 08:46:01 GAURAV An derso R n 2021-02-14 2021-02-14 Outpatient EL NICK, MDA MDA [id number] 16:13:03 16:13:03 KRYSTA Sandra so n 2021-02-14 2021-02-14 Outpatient EL NICK, MDA MDA [id number] 16:11:50 16:11:50 KRYSTA Sandra so n 2020-10-28 2020-11-03 Inpatient UR MUNIZ, MDA [facility] [id number] MD 08:47:00 13:55:00 GAURAV rosalesso R n 2020-11-03 2020-11-03 Inpatient EL MAYE, MDA MDA [id number] MD 08:41:05 09:10:15 BIJU gallego 2020-11-02 2020-11-02 Inpatient EL MUNIZ, MDA MDA [id number] MD 22:10:35 22:18:01 GAURAV rosalesso R n 2020-11-02 2020-11-02 Inpatient EL MAYE, MDA MDA [id number] MD 17:03:33 19:31:59 BIJU Lino o n 2020-11-02 2020-11-02 Inpatient EL MUNIZ, MDA MDA [id number] MD 08:16:22 08:26:03 GAURAV rosalesso R n 2020-10-31 2020-10-31 Inpatient EL STEFANO, MDA MDA [id number] MD 15:19:32 21:47:10 BAL gallego 2020-10-30 2020-10-30 Inpatient EL MUNIZ, MDA MDA [id number] MD 04:31:13 04:49:40 GAURAV rosalesso R n 2020-10-29 2020-10-29 Inpatient EL STEFANO, MDA MDA [id number] MD 18:24:24 19:40:21 BAL gallego 2020-10-29 2020-10-29 Inpatient EL SCOTT, MDA MDA [id number] MD 18:24:28 19:36:56 SUE gallego 2020-10-29 2020-10-29 Inpatient EL SCOTT, MDA MDA [id number] MD 10:00:26 10:24:36 SUE gallego 2020-10-28 2020-10-28 Inpatient EL SCOTT, MDA MDA [id number] MD 22:30:59 22:52:26 SUE gallego 2020-10-28 2020-10-28 Emergency EL KATARINA, MDA MDA [id number] MD 10:57:00 11:46:41 RBENDAN gallego 2020-10-14 2020-10-23 Inpatient ER SCOTT, [facility] [id number] 16:40:00 16:38:00 SUE gallego 2020-10-21 2020-10-21 Inpatient PRISCILLA, MDA MDA [id number] 18:46:01 19:27:32 BOB gallego 2020-10-21 2020-10-21 Inpatient PRISCILLA, MDA MDA [id number] 14:16:27 14:16:55 BOB gallego 2020-10-20 2020-10-20 Inpatient PRISCILLA, MDA MDA [id number] 20:10:36 20:13:24 BOB gallego 2020-10-17 2020-10-17 Inpatient MAYE, MDA MDA [id number] 15:00:32 15:42:49 BIJU gallego 2020-10-16 2020-10-16 Inpatient PRISCILLA, MDA MDA [id number] 09:18:38 09:49:47 BOB gallego 2020-10-15 2020-10-15 Inpatient PRISCILLA, MDA MDA [id number] 11:01:50 11:06:18 BOB gallego 2020-10-14 2020-10-14 Emergency EL LEONOR, MDA MDA [id number] 19:53:40 20:54:56 ALEXYS gallego 2020-10-14 2020-10-14 Emergency EL STEVEN MARTINEZ MDA MDA [id number] 17:59:26 17:59:31 Holland gallego 2020-08-20 2020-09-06 [facility] ER Mallory, Vandana Nile [facility] [id number] 13:34:00 17:17:00 [facility] 2020-08-20 2020-08-20 Travel [facility] [id number] [facility] 00:00:00 [facility] Results Test Description Test Time Test Comments Results Result Comments Source Tissue Exam 2020-09-14 10:56:00 Test Item Value Reference Range Interpretation Comme nts Case Report (test code = 104) Surgical Pathology Report Case: [id number] Authorizing Provider: Vandana Tejada MD Collected: 08/31/2020 06:37 PM Ordering Location: [address] Received: 09/01/2020 08:13 AM Service Pathologist: Thien Radford MD Specimen: Groin, Left, left iliopsoas mass biopsy ADDENDUM (test code = 3381) m3vqmCQmGQGqbKS3GjEfQMFti3gfi4IczJUuuGR mTVelfXNtdnWeen85eKR8rL89VT4jJTWhDyQ7RR RrslO5Ygl8UZSvKNXdiUQlL360h9vmt4ijdvMjb TK7yJgsIZWpWGIxECvfHWWmMuDlFS1loU3ggYah aU0miYRleSSzwRHpiSZoyVJuMUZsxgRhtt2jCXZ iieTntC9sacCOALSfVY7volM0maK9QYT6iAKswf SbnUuim1JsTmTiBYhftsS3xuRuSFKuo1PinGz5N UQtl3KgQ3LoJS3yGIrnnGIfjaHzvpBqUXRxxqBp Td8pZPscqoQ6nL5fLNMhKQPsERSme93vxjbdVE1 USZCynA0asDwosUBjH0buBJOreUkxISlFHRTtCD SPQSN1JECewlIbV9BZNQFgECXzq0fyAcAfQKXph zHlzQ0gGHkpEefhG1coAuiecEYvpgNbrGZlzLHh PJSxcdrvzwklBfTlqAKbEKH7cbW6QIUlENxzYDR bjRBgTOVnTAHuVU6lbPMooFdoOQJryLzjAKFaIK GifdCkRZKka11tnHVicNHebYi9q2jyDJQgUTO1u aTxNESqFEKqMCCzGRFgtSIqKJ6uXUAuXRKrtgXv eBKuXyLGsIKcCZDxwfRxkn7ucvKzVEgtjXWcbzR juDUwmLZxgAi4m5TjXlGosYk9mqMwZOCpOJKavr KnSBbdq8H3BWOexCkpzgVklGEzTN7bQBSrRQEbU yBfYVAbw8Qzyo6pdAEaAWJbymFFdoBeKMiqIWC3 vROwzsT2eXNkDF7mMZXvSKNuEEFkb51vcEScsI3 rNJTjqa9dykR4SHGfl8modqEnRQqwPTEvtk0oJD AmaF4cHqEwwMPwrEahPH86YenvFYZksQXvQTKff RKnO1BdILF0kZkcRMIbDHYjHoZljpIrLAByWI9G ZFCtVOLkn34zWLRkptHtc95cgOk8JCBob55tFCZ rETBnHAGwZXClURDvgZ2ffJI7sSoySKVblLqrwl 4mmNRqWUCesiOFpnSoAGWskIEhoN9nlqHwbWNzF EEgWEg0QXNzYuHDpJ8rVICdYS8dA7lyXTkzhdrk YXJ9 DIAGNOSIS (test code = 3220) t6kkoOJdTWXvy5nwFXXucRNbCdCaFrXlDfBwAy p cdWMxIHtccnRmMVxlcGljOTIwMlxhbnNpXHNwbH LwV4NnyhgfKBgaVS2eOH0tnJxgzUHcjDOmDUBhQ mFkw0msi965tGTvy7sgIHJFnvzyrCu8fKsnM16o y2D6TfmzW50nhQIlTSkluJXkmsxavvUmXDMLSjP wEDKILNQUAZzCYI5FI39FRfYSIGDOBFNVSA9ZK0 j0MMKthvDOBWcZVKjMQCMZXBxtOeRGZWpHF18nY HGtcfWNBZ6HHXWWDsZQAjVVDNBOSXwHCmHPJF0S AS5GXZjVBMUHK9OWKE7PAZuTVC2ZWhtmVHErRKK MZD3PGB5pOlVKV0DOUHILEYLEWKrTOe4fUVEcyg 86UWC3VtLtn5U2DDM6GMVnMROhq8vrVMJdmAHjG fDjLwJlPdAcVlnasREgVDFuJvYcd2pqs951wQXr e8thIBMtOyS5mTVbZCQuvXRoZ737KGEaJOjcl5b gn6BpLTKtbIYbg8S1SJPFvlfaiPt8eVpkZ44tp2 H7WcupS3lgFQXnGEXyX9WfDU3gOCVwFuv3FDZ7S LX1YLIfOPUcX0LuIA5kRPWeyCNdEWa5f2lkaAnd BNWgUHT7s9eoMSdhitJjTI2koi1eaDz9r8bwjxV kEBXpTGNbfHIZOMMsI3HlnQynRl4ouFh1wVnyCa ykFBM2Jzf4LN9apb14rph2fJohPPLoomteWzD2E MvwIVHvchrmUQs0CMobEICbxRU4JUFgzRHhF4Hy VVQuGM4vwpv6EYF9NFtmUNCrEzD4MBWvaKDiWRT olKbqPAlma427LJR1IcLmHU7fQ3Onr3C4mH1wrA ObZOHhqQHgVfEhCCAmpg6iyCWdWNhbf3QuOZA5l dX1cUJgrUQqFBXiArI1DBbjAH7zzc28WXMsUHP9 ak9ffSAviQipafForACmJGnkJ1MbHEIsr691NXQ tB7JgXVSwg7Y6yaHrWqIsXNWcsIA2iqS5AFAcFD 2ddnffc9crKBumKDnfSVMkyeY0zhQ4SIJakQJsX 0YfsJ3aSQMwHE3hqdiqc9sfBFZ6CUkuNQKuJXN5 RfTlAVHol9Fyhwt3GmEby5KqnHAxDYniQ69ro96 3YHRqbzKnQ3metRPpajswoRCblpqgBQebalF9PI YeNPhzyciwYCXvQJzcT2uqYgQfTKFnkXrtMVdxw 6YjMXAiXUCyHaNvoOBaRCGtCqo0LRVpdDGiPPDa ApVqZ9aolnwrTyQGZIEjh4wcN4wvoCRYvBYjX0Y mVLcgrhDzTQbpKYwrMGAnJDN1XA71KYigMMHrgc 19 CPT Code(s) (test code = 3357) r4yvaLXwFZRsgDH9AgJkRUNdz4wsg0VphADg cGF vSBjalWSzcgWdpk41bMZ8oU75FE0uMIEiNrS8WL DivjE0Zwu3BZEqSPSzqAAkQ543q6epx7irogRah KD2mKbcCBBnSOGmZIkxGUJqGsDeZMxvGCRnDXz0 LuEoSXM1BAL0UDo5OTYfpg9= CLINICAL HISTORY (test code = 3356) o2mgaAFrCHPkgPX5ZbMoRKAdl5nxl2X sdHBncGF eSZetyOKpnwKcak06wFQ5hB12GB8oNJCnBaS6LU LhxzA9Kfa4SWTqTSMfeEQhP170q3gkc0mqfhVnu ZU6rKuzBOBoINTaPAjnMGSkRqWfJZUsnDJshi7l xlWjlJM9O6gixZ6et35jvdDnBGIzUMH3CgQceOQ 8SeMxpUFkETKzFDmvSVG8 SPECIMEN SOURCE (test code = 3377) e7szoYEzEBQprFC4IhLiSPDws6koz3Oa dHBncGF yRLsarEXgmiIhgn67oGR1xB49VL8aHFZhZgE5JE UqweT8Qkm9PIQcCROarQThJ093m0sao0wdqwIwk NQ7lXhqMMZsERLsNRgcPLCxIwNrWLHfzJHjul8d la4fpJsiuJOsNLGdoIMbtI== GROSS DESCRIPTION (test code = 3366) i6fvyBFbNZNqwYBiKaPkVELhZBCkx3 lcZGVmbGF zOmVjNbTyXkTpZsiszNXtZKEfPfVcy5uto834uP Hdo2byPZDJdhbzeKh2t6sfWDReRiW4jQHtVIwpZ 8obxpAeyXBtWXRxFVm3mS25KJFdjA9hbOUsEXwg ggYqCaW0RRfpPVGbWtF4KJTkjEJiRAYtQ4ocENO sBWzzFRBlFPxiwEHiVZP3uJqjp0D7wXYofENgrM ljMoCqGoXdVKTLw6ZuFKu2hQwzG1SkJZYfNrW7v UFqCOJcWMvxKXKlRTJcmoA7kZ74FRjlklK5dDKr d6Txb58rv118hJ6zsLPkPXC4MAQdVKNryQUcPWR gGRX3EOEymDLiZ2o0OlYxnXCoJ5S6AeBtfZYsW6 P1EoElzNKrK8S5KdBziODrQXRobFWmAx9pbCXgj CBavk4zlw04KPW7m1HpdQngXDZ8TMF0LkFmVo1u wVVvUDZhNRTzzXPqWFBiKJ4fpVFkCPMouS8vqnv vTKZwLxWukecsYCFpeHvlutKhJh9lzIuzHRE5KB blC0alnL8xZgP5WXpkK6bxmO5yGXw4ZYwphGT0E WJqdW1fTE5rgmbms8ujUaHwPI9kerolz7faTkKt PZ7ilqy7z2gkCoUdEV4gptmzh9bjXmWxYRkkJZQ jzcvjTVRcp9CmrxdjRSCfs9JkN5OgmEblQ85vaH qaG45oYTOasZkmzW2aqUcrgV9qHrIkYdUtRMbuI XJkXHBsYWluXGYxXGZzMjBcbGFuZzEwMzNcaGlj vJwmIYxvOeRqDATlDGzoT5kzQoFfKiQnXYZXSbA CVZMopWPvUEIkjdTjb6KoRNnjvmPuJZLiuYStZR ruxCvaoUxeNPWmfPfaimQqD0A3abUgSM4mAVTcP WQkJ8VuMYPsK03gMODdcD5cJUWqED8sZQRuzx9i cmbchHPdaPCaZV1lQSJuxnZlj7XdAB8rCY99oWP vlEjsMYhhUSywa0fmrTAoi03eyUK1jKNdyYAjC2 2yXXFakuLbC4wgFoDmIqAbED4nPMTjNOegDIrqc hw9sYTryBMkhAP6LHKpeQ9tzH19iiPkjtOIEX5e oMqhLMitmT6eTXQeXJlnNAXnW7GpxZ5cBB4LYdo xLDPgVBEUC0XcH69xdGUayW== MICROSCOPIC DESCRIPTION (test code = w1wpjZRvAMYscOL2ZsNcOJRuv2bjt6 BsdHBncGF 3191) eZGgkpLSjzuRjgv52dGL7rB79CB4mSMGqZkG4IX XnkiL4Wwo1HORmCLPyiBTkL854v4wuq0xhpfLkb GU2oTduPKTfJCXnPPyuUIFxXjOmFBIMKq4AISRK XHBhcn0= SPECIAL STUDIES (test code = 3376) m4qhcONwKBPtpLA9KrIsSRCvd8xzm7Fa dHBncGF aRFlwbBXyqcMioa36rHK5jS03RH8xCCBiAuZ1ML TnrwZ8Aok0QENjMDLawARcU501KIWrEVOefGtjh bq3cA39NVRmzK3eeOFwGQv5OJPwikTnfDqhfH7k IfXhYqKaEjPZqOPsiT07OZOqanZ7CTMae00xt9E ldRmrleWzPSEzLMdbL3l1WKPrRLDyMLL8y1Mpc6 RsiY2yiX6rsPihmH6huZXqlPQ2amypj9Ayv6ErB 0whwLUxpZCtnlZfBREosbHJVR5HWyXEHF4bT9RH BCYZJumyWnJcAYizNCDXGJyCOLSWGNK4KDDBRMF rWIGQKDldYYJgV37jfYKszRSPuEnvIOEeROdyiX ydYQP9TRYWrq5wh5LrAECllg77pbHeb8FgkMy2E UZiq381pc6uraD0QMOcOGV0DMo3GRIzTEIyyE6u TnW2nXJiXTQxTZR4SSJ3NUYgh2B0XF0hWVQiBTQ uXPRdjgMcp1hqp8veOWZiBES1geLieY7mT9ZcKJ Chd5PnbEmbGKWbeSanwdXbQECftVLpHKHbwA22A GNksGGeiMSrORCkKJF5LDobqV7lWnYOezLfcb6b rXRad5AbfUi3MZDabjAdatWhPFJhksJiW30tmKB fqOBxz6bliiKzttXwhPHkaEIuTAHoBUU5XNh5BO YvHHokOGBbBAjqWVQtPV8agT7mnMtzzD7hrQJuh HD6bxitfQQwaW0kJ8OjCHSbk7Jenqvco8LtZRAd pwJytf0xFHNauTENLHjwg7VuV6GjIQb5q6ZpsZb rRZbzGRe0DyHsCDZpgBSsfONQQC34XYEgPCYskI rooR4luVEFCHJuroG7w4I6HUylPPQtNXs7ABnlt qKoQJUeuX8mUBYlKG6tGBb4llXbAXTio6ZfKZ0l CWNzjCXtFZS9IZWhe3KgX0Amg9DaMUOdHWVmjo5 szhIrLiZCkZFlUPWyop40RBAtVJ5aQ3zbIJJqRL PhljUleUUhb1HyIWTxtZT9uVUkDL3JAtTSh08mV YUnGIORuoJrJJQgjMukoRQ1csP3sK1tVmPFtRIo XlMTKNwjrmAmYTVohu7bdbYnXCCmCPCdi1CdiCR lbLKjhgEbY2Nxd0YkRTGoqf04CLxjfBHxda86VV 3zI6Wvb4GxsP2mIXltUJDsh2DokRYbvFBdTKFqm 2CqD9sfjpkdKRgcnMRdmG0jDAIgJZg9NXQvq1Bi TBBmf8TwQeStukDtLNXvHLKgZLAwlD77JJZ8eBd mvMzwgmAvUO0sWYGjupRhKTKoNTSheC9bXMfcuj TqENIaeaH7w8D3LPokMIOxzpJyNtfeHWU0seHla cP5eCNqH9hsjaksPAseFZXlt2QtfQ6axDLLeFHj y0CgjRIjuLQMiAZjKT0kfoPeJF6nRAJ0YFjnVOL GFVOjVXmeXBRcKTD3TOxrIjbpPKJ0xgXwKTHei2 CuJXsxB6wjV82ntUdgcYs6fZDmrZzlmMFniYHwX FVupvU6d4I5TGZwr7OqacoaMXNsfo1= Gross assessment was performed at (test [facility] enter, code = 2777) Department of Pathology, [address] [place] [address], [place] [address], Technical component was performed at [facility] er, (test code = 2778) Department of Pathology, [address] [place] [address], Professional component was performed at [facility] clive, (test code = 2779) Department of Pathology, [address] [place] [address], [facility] [id number] 10:56:00 Test Item Value Reference Range Interpretation Comments Case Report (test code Surgical Pathology = 104) Report Case: [id number] Authorizing Provider: Vandana Tejada MD Collected: 08/31/2020 06:37 PM Ordering Location: [address] Received: 09/01/2020 08:13 AM Service Pathologist: Thien Radford MD Specimen: Groin, Left, left iliopsoas mass biopsy ADDENDUM (test code = [id number] 3381) Afm6ock3ShwTClkOGzMBso gWOnzoTvvq33bKS2qT06MX 4mWSVxWsD2GXQpxuF5Qyy7 VEYcMTEpyOJfB976l3uvh2 lvmpRmkBA2oFjoQEBfTIPx FIuyHWVgEnFrDM4iuY9ciP nhuL0ktZUrqVRnmEPgxBMd lXTeLJGrnyBfks1kYQAhgz AixM8sriSDARWoJG5tjvN7 qgD2AXD6bDXvgtJgvOqlh0 DeOkKnHWmzjuH8mdZuABHe a0PxgRq8WSRkw0TsT7ExJF 4gVGhleSBhcmUgbmVnYXRp ncRcNj4gOXrtyhR1vG1yDL EaDVGpBWMpp21tkifxSK3R XRIcfL0zsRlfiLDaR3coSN FjdGluIChTTUEpLCBNVUM0 XMBmrgTrL9RMNPSvPFLcu8 vjOmWsCUAbuxWdnE7jVFnd TpmrB1nkUjqvqZEolhSlkS FibGUsIHJhbmdpbmcgZnJv yJAzBRF1geN2GMMsMIekZF KzpZVwCKEjTUXgBW1mzNDy dGljIGNlbGxzIHByZXNlbn LsZBUhi33oaPZseDGfqVm2 c4yzFWWbVGL2ybUnFXYoBG CfJRXzKNIfkIXqCL5vABMj ZWQgbnVjbGVpLiBUaGVyZS RgqwXykv7ofnAlRXutgZLq ofFwdRQrpBOgsXo8e2TnHu XwxIx1skQaIFChGWJywgPb IOtwr3T2ZTWqxTbagpRgcG JyTG1qJYZaYYXhJxQqDRFz v2Moeq1ayTTpCVElxcJMiq KrWFvlXAS1qYCbsrJ6yTZr UW6tJUCwJUPeYKKjd85tlO QioC2wPUUtzy1anoL1AXSg d4nircFaRVvoPRPxgl4fQK UmqA0hDrXcjFNivHxuOT61 LlxwYXJccGFyIFRoaXMgY2 DgNKT7cTkiYYVpSBRvPmLe mzDjDYRbQI7HZWUbROOlw7 3bOBQmsePcs60weOv1QDYy v73qPMOkUTDtVTXsPHWjSO FevH0wtHU9xRxuBKPewWft mv9udFHpMBEezkTThsEnOS DwzASmzN9pctWerHEsXMTq VQu6SMVlAiMTjL5oDVOyIO 9rD0djWMytezjaLZP5 DIAGNOSIS (test code = u5iotMVeTALwb9qzFULhxJ 3220) FuZzEwMzNcZnRuYmpcdWMx IHtccnRmMVxlcGljOTIwMl lcpyUkMYDkeIAdJ1Dkmnwn AYpmCN6mDW7qeMcmlFFleG NuVFCiXtWik6xfw531bGBq b4qlQZUWpoyvcPd1nRbzC5 9cg1B4CclcT11myGUiZQna bGFpblxmczIwIFBBUlQgQS CNUSNLTOkIQP9JU95MJbCE VDUXRUMMJZ7BA5s0LVWfpt BTUElORExFIENFTEwgTkVP DOsAU23jLGWltyAIFT8SBE BJTlRFUlBSRVRBVElPTiBQ HP6QNC8SJHsTHACRB6QYLX 3UCReGYM6NBqhkYXNiAJPY EF6DWW6rBjRMZ0KKUGBEYL HLSFnFNc0rQHYxay44ATR7 XfYng8H3JSG6QTBlYCDvn9 lcZGVmbGFuZzEwMzNcZnRu NwwqgLBkVLYjYwOdb3psm0 36nMUkr8ckCLLoTbP1iQTa ZHFrdNAsQ806ILZtVGmuh3 tha8NbEBFnvWRpt4V5TMZB xpelkQr2hGkhO01zf1G4Xx wjO4aaRKMtSOAuT6BzUQ7u AWLbPfl1QQP2VKB1HDSiUJ LsA1UtBZ5vZGClcCGpWWt6 h5gaoEblKTHdNCU2y6nuNY jaywVkLK3oed8zmFz9c9gm czEgRGVmYXVsdCBQYXJhZ3 OcuXmrSt5sfTp3tMtaTomb KJW0Cpq3ON1ptf50inl2jA xfZZQzvbysNkV9QIkiZZZw gzkoEIa8HRzlOLTrqHF9SO TaxSVlZ4VqFHRhRT9wgpq9 ZYB6BJkpSZBeYlA0LFQsgC IcCRCeqZroGWqdy052ESO3 XlIwGD1xY2Vjx0B1pD2wuR DjYZBrrTTxEcHtKNSjdm1c fEVgQSpwp7OnZWL8oeH2pN JhaHJqXEXrGrY8FBnuJM8q ie25OVTvXPO4hz6pgRRfhD kpbfDunHHyXTfkZ3IaZCWe o669IVGaC1DgFGTkm9U5ra PeTsGjPDBeyRQ7cwC6XTIl KE9mjuuhb9riCRpwTTqnLV XrscV2viI1EMNffNXxD0Ce nE0eGAUpKY2dsafes0raOW Z3ZJuwRCWpLLA3WtNkUQJg y0Ddgnf0NkKpm4YdhSEkRB xbD31ut238GBMxmkIfC6hf bGFpblxwbGFpblxmMFxmcz M0UGIaRKcigbrxEYTtIKew R8lpLbWxJSTrgNasKDywy5 NoXGYxXGZzMjJcdGFiXHRh Uqb1MJDdwDMoLWEuNdGgE3 sakeonCgPVJMJry5ijF8yr yYIYaPGgQ4TkQJzvklIoZJ xzSHlmXKGjYTQ6BH87JQgx UWHghg80 CPT Code(s) (test code o3ssbLWoGJZayFH3FpOzGY = 3357) Asc4hiy8TlvOObrNXwRSee wGDnfpJfwq56aFR3aE29TH 5bLGBpEmL7UFIrkeW6Yrf6 CNJqTFGzhVZjS551b6btm4 rfoiNvhUD4aZxyLGXdZYVu YWluXGZzMjAgODgzMDUsID z3JhLmSFC6YLW4BRm1NTQk cn0= CLINICAL HISTORY (test u5vxvIKdRQZnwPJ4ImObDC code = 3356) Mzk1uvg3RbhDFpdOMxGWnk lLBlyqJmvu55kQA6oW77TP 5eCXQeMsY1YUGityG2Yxy9 WFPpRDKnwFBeJ831r6emk3 nraqAayZO5hWzlTFLcSWSm YWluXGZzMjAgTGVmdCBncm 4dqrXuhLO7R6jfbO9no65k ijBuBKVuDFS3EcTtnUB0Uw EgeCAyIGNtIFxwYXJ9 SPECIMEN SOURCE (test i3ytjDHyNVJvdPX1BuMoTH code = 3377) Mft1puq0AoxUAldLBcOYil lZUricMywm63zLE1zP02GT 1zIHTlGtE4YRMhmkB8Rja0 EVMgYNMcmIVzF599o7qmn4 cuyyLgsTJ8bLyjBQJbGXCd YWluXGZzMjAgTGVmdCBn 6odu6lnIcqhILwPKOavTLg fQ== GROSS DESCRIPTION (test d0yuiRBcXMTbzHNzFfGhKX code = 3366) NfVIPoq4bjIBIiyKEjElYr MzNcZnRuYmpcdWMxXGRlZm Cdi0rwt006dZMjm1cgNONW yayrrVe1s1sjHWHeNcS9fK EeICumO6vxxvMfmEZbMOLp XIr0fL25VUWawI2rnPQrZN mhajXlBiY9UQfsSWCwXsJ7 GGQcuNCuYBZgY2fjNIRvRR jwDWMpIIjjcEVwSVC3xYuu m5U0iROntJMgfOkkNjUpWe AmMCRTr4BtQQf9fJveT2Xv TMXpNeN9dJQdPHZuQUksNG TwETYeapV8zG00RKmphjV9 vNGib4Dco83wj162yO6noC KvQXO2EZQtRPUfxFIlHBSi VXP6WMAjiAAiD5b6ImXtqT IwH8D1ApAiqMKbW9N4HyJh tVIhK8H0IqZbvIQeOXCpkX DmVt0bdLWcaIMzut1vhp98 ROO3u6NpgUeePGR6WJL5Pd RyPm6tbHIwQDDeVRGecUHh CCYnWL2eeZZxFZFzcW5iho xjXHBnYnJkcmhlYWRccGdi lyEbWn0elGpeZBU8XZiqT4 napK2xRoG4EFqdN1izbB3i ZFw6OZjweDJ9LFXpkO1jPR 5vckqyu2fgDfSfXB9srpna l5pyAsVcAU3qsgs2n2xxMu LuAA8spfsad4fvXaDzQLon WKRwsloaAGZmb9NfyzqgUO Vlj8AyL3MxmDipB02zgZfq W39mBSNamDvgtK4bzKymmH 5cZjBcZnMyNFxwYXJkXHBs YWluXGYxXGZzMjBcbGFuZz EwMzNcaGljaFxmMVxkYmNo KPGkEWxeF5mgTpDmPdZnND BBLiBSZWNlaXZlZCBpbiBm w8IjTJzbdkYdBBUviHAiDV dpdGggdGhlIHBhdGllbnRc O9F2seLzJK7eKRFeAWEpS8 VbYIEbT47rURHihX0wACHx AE3eDAHklp1wbbhvgJZscF OoNW8dBSDqnbMsc8PnLR3r JI72jLNecPbqUNozBGrfx3 ndiJMws28alJU9kXQzlOEb J62iCZEtdbWtW1syTkJbNd KgPO3nGNYbGFubPHtkbri8 fXEugEXfnSQ7GEBegU4miI 95tpJfakQSBJ4xoKosEFjx gR7aMJYwOKhlJNLsN9AuvP 8wIY1ROkxwZUVoSSINK8Kw I14hjHOkfK== MICROSCOPIC DESCRIPTION r1gasXGvZLSnxAA8UqYzYU (test code = 3371) Oyn6aqg4OchJHxyASuMLgk iRNfylLvzy06kIY6tM82QF 7qHOWjXnR7ZTTrsiE6Uol3 PQWzPGOpfHHqJ701l8hxe5 sdlzSrwKG5sZkiJLHfTOCv YXraHIOvVyAjELGKHg2ONS VEXHBhcn0= SPECIAL STUDIES (test z7oalSSuSXWvpOJ8YeOhQT code = 3376) Bbo1xuf1XcfASrjCWuISbu yBBlsxQjkw29eXZ0rL08QV 3lWCBrGaS1NUXdmwM9Qqv0 DZHyIMSdkEJlR266PGInAE PnbFpgpba9pV06EYBfuF6i cDAkVZw6EIWubyIrbTmcqH 6bOoDiPpFkJzQLeVVktU71 MSNgdoR8ZSGnw25si3UvuG mfmiSfOQFiSJngG4a0ZHSy FXZeOBF3w2Tyb2DeqW8eiG 1zkAnduO3mpOQjoWZ4sexb d9Gev0GiS9rzuBMeuFJdlo PvFAFnjnRDFM9HWeSKGQ8y P5DZIRXZXpvbSsYjNOqpNI ODHSpDRIVMEBV3TNCDGTNk ZZSWXGkaYWSsK11fnHRjiO BTbGlkZXMgRXhhbWluZWQ6 GYSEdn4gc8XaZXEcsn09fu Svp3YxsRn7JBPqo938qy7b yhO2YWBfNNS9BYq6UQGhIY TvfI6uXlI8dROaVZSqLWU2 RKL4PKGnj7Y6SP9eQJHnKC KaUKJflhSru4bme5uhAMMx DDR9qgZctD2gU3DmWYJnb6 YgdGhlIHBhdGllbnRzIHNh fCZpYIBcrI22GBMetFWrdS VqKHSdOQW8UEpxeF3iDeVD xdWmym1znHMal1PibBv7GK NvusLevqSgQKFxtrArL01o aUJrqSGfk0shakRpinQhvY AegTOdWBRkXNX7DBj4OAVs AGlxYLPeWVlfPZToUB0vzQ 2uxSxmyQ0qiKYxaEE5mopd mITjlE2fO7WbSSBut0Kizp dwa8HwSWYkevKbxp2oXDSa cRIKCGydo9ZwX1AiJEe4k2 IjoRrhYHdvHKp6QsSlAQKi iUUaoCKJCS96OACgWSKukG ksnI3lnDMGPJJvllM7h4Z5 NUghOKOhXMm4UGdmtgQiLD NmyJ0pUOTdZE0dGJi2utDq OBWkx8IrZY7sSTMtuYBhXF I5QCYzi1QzX4Vtt6ZoRCLl ZCPzod8gflKfUmJNkMOpXK Hdjw53FDPeWK9jM2rkQQUy XABnxfVvsWLgd7YaUTArvN C9nDLfPO9BWbUJp83yQTNf EYCNygJoGJKsnTvdzVV9xg Z0qI2oOwTHsGQfWfHXUNzu ccBzRIOesk2sfoLkOPSnXR Als8AmdEQeeZRqwiVjR0Jk d3LcFETzlq67RHsziOUgyk 03JI3wJ8Ebx2FkfD5cHUtg FXZjf8JbbRYbkCFyFKWab5 TdS7xxbevmNGebqLSdlX3x CYGdXIa8FTMbu5DoLGCat4 QgYmUgcmVnYXJkZWQgYXMg nV43HDO5eLlmuBembcGoDU 4rBYApjiMyDXFbHNEwvF9g BTqtybHnGFQhgeO6l1V6RX uuDCAnmdGpIhzeMQM6feBg xzC1xXFzY7dlsrkmJStxAA Koa5VdfY4zrZHMiDNxl4Oe aCLnbADDoQOcXX3nbcJgPK 0uODK4JWshRTTLPKSvLFtv TFNmRPA7BVtnJjtuMGC2ts WrHOTst1BeLEefR7xcC88e hHzcsZp2wMWnoAlzlYClbG QwYINkuuM7s6R0RWHlz8Sc bmcuXHBhcn0= Gross assessment was [facility] performed at ([facility], = 2777) Department of Pathology, [address] [place] [address], Technical component was [facility] performed at ([facility], = 2778) Department of Pathology, [address] [place] [address], Professional component [facility] was performed at ([facility], code = 2779) Department of Pathology, [address] [place] [address], [facility] [id number] 10:56:00 Test Item Value Reference Range Interpretation Comments Case Report (test code Surgical Pathology = 104) Report Case: [id number] Authorizing Provider: Vandana Tejada MD Collected: 08/31/2020 06:37 PM Ordering Location: [address] Received: 09/01/2020 08:13 AM Service Pathologist: Thien Radford MD Specimen: Groin, Left, left iliopsoas mass biopsy ADDENDUM (test code = q6mmuFSwUGDlzDV2JqBtMK 3381) Dmb6pgc0MsvTOavKWpHXtn iUYtwlJedx86lFY3uW12SI 7oWRLaUsZ4JTNfqtT8Kda2 JKHaLUQalWYfB531w0ujx2 ilmtSvmYE5cMyaUBJaYZGl UFswACCmOiOvHF2xaS8hpB sabM7spJFktJAyzXAqeIGk kUHfCBZxzrGlqp1xJYXuso ZmtT7mtaTGEUNnHM0uifJ3 cfJ3YFI4bULzeyGbmDpbl0 SgFqCaOGfssjD5ixPxXDEr d3BlvJw1CKRsr4NkP8QrSW 4gVGhleSBhcmUgbmVnYXRp xnQmMp7bVInkhsX9oY6uTA BqGHXhTSQoq33jtfbaKQ8I PUImzZ2nqFdboMUsN0czUK FjdGluIChTTUEpLCBNVUM0 VGEcxrVlP5SEIQJrHDUmg2 qhSyIyORJuwrHicX4sJAwf VsseC0ltHyyjvBFdkuKblU FibGUsIHJhbmdpbmcgZnJv lJLoGWQ6zrQ0OLBwONmnII OpqQUePUYfBFQaEV3qaXSa dGljIGNlbGxzIHByZXNlbn DaFEMbz36wyXSsgYCzlXw1 b4eoTELfNMB9nvEbXHIpJK JaEGWaYEYrpIHmNC4rALKf ZWQgbnVjbGVpLiBUaGVyZS SefzIvwy1inxJqDXdexEXl xzVrqOWkuJQefFx0q9HoJm OlmNr5ucUuPUDeBDAirlFl XRdre2P2YYHwvHnihyRdkP IxAR2pQPXsQOMnIoYwECUt g3Nvnk3csAVyNDAbsaPDla KbSQxxAYX4rZIobvD9kUWb ZZ6uCPXrIGOhCABdx96dpI IolJ5uCVJqcd7smyC7KJGi o5ajueVoZCuvOBXkry7cZO YclI3lHzEqrOZcmVsfAM59 LlxwYXJccGFyIFRoaXMgY2 TnXXJ5vOwsQKUwNXFvBpKy vkYhEKCsSW9WXHRsDRLeg8 0bQBEghqEvm96ilMg6HFFm c10vQZHsGJKyAXZmKFWfHK CnqV8aeGL0bFmqAKRwmHft tm6vvXNxYCTerpPUdsCvUM VimIOyfY1kofBgoFNlCFDq OYv0UVEmYmNXxR2fSIJkBC 5sD6ayYLcpopbwIHX6 DIAGNOSIS (test code = c0lctFIkUWZbf4tsUUNfgU 3220) FuZzEwMzNcZnRuYmpcdWMx IHtccnRmMVxlcGljOTIwMl jytwPaAFOfnHChM6Yaqspc OKivVM2zAV5onDpbdLFpvN LgBBEaJyNon7fer737kSMw l9zsCJPEscyjlFa8fYdoJ3 4my1J8FsigK06uuAEsLUgb bGFpblxmczIwIFBBUlQgQS RSMHXWVFeTYH8ZU67BCzOY VWNIWAVPPE9AG6a2LAUehc BTUElORExFIENFTEwgTkVP XEfXL67hMNJbpcGRLR3WFV BJTlRFUlBSRVRBVElPTiBQ GX3FQS5ZVJkLPGCPF5EFJQ 6WSNfNHJ3OHrzhGEUkOKQY HF0TGE6uIyTMO6NFOHOPMO TSZSzYBn6uPQEfat94GWT3 NnNxu0G7CAF9BBKvENRcb5 lcZGVmbGFuZzEwMzNcZnRu GhgakZUqFIPvQzNbn6cor1 84xZPpy6rsVUMwCfQ8dUKd IWJlcWDgH749OUKyPMcym5 dfl3HpNWFmsAUky4I9VVEW gfdruYw6kJkgR08re6H1Rw naC9ndPRFhIWNjH0ArGL7w BRWmOxa6UZE1UGJ2NFKcVS IbP2FuFE0rXDMmrBOxXEr3 p6eswPifBVOiJZC9r4ouEU rruqPwWX1nez2bzSb9x0lc czEgRGVmYXVsdCBQYXJhZ3 DmtGwcMm3czHd6aBexOpey KXV0Kla1HG3zom56wfg9xS kaVMEpihvfZgG2HPnjGIDu warhFTm6NYzhRFTptAQ1HO KwrOGiZ0FdYHBdDA9anju5 AOG0PNdpPBOgEdD1ACYkmT YnEZJxhLlgIFgwl852AFQ8 KqKkSM3iM0Oll0W3lI8epC GfNXIgnTPgBqTyLFLffw6c zHDrDRfhg4FtAOH1dmL2eD EjgUJiQUVfJoL7TQloMN0g ob29NNSaBMK0cw7ydCLmqQ tmgiQdyAIqJOhmL2YiUPFi h009ZDKaX2ClGFDwy0J6lq XzNvOcZQEpeJB0spL2GJHj PO2fluyvd5zaLQrnEMxoMJ UmqgS7ucH9YIKxjMDkR1Ft qE5dJOKnGS3rdcfdx1bgVW G1HDnaUGLuOIC7HyMcYGZu m9Keupt8DfJrs5AfmFKcZS eyX05tj904NHXjncIfC9gh bGFpblxwbGFpblxmMFxmcz B8PNXwGQwnzydcIQZdDYee Q2liHiYpEVCrmDdqQSixi6 NoXGYxXGZzMjJcdGFiXHRh Kdc7JUFmjZPhKEOnFuHtG7 vdgvqsXyBRCJYpk3huS8fp lEUEpJSvJ2EpDMdhppEkCW sgEFmcMZWsNHI2SL33ORbo AIIikz08 CPT Code(s) (test code v0llqREmECDadXG8WfLxOB = 3357) Fjv8mzl3RmdTTveQNxSTfv kKMfsjMvpf45mNS3nO61EA 6wJUYoQvF1TRTqyzA7Kbj9 JYDcYGTgxZJiP742k2sle3 qrctTvpGX0jVhxOVMqHTMp YWluXGZzMjAgODgzMDUsID m3MeLkTPF9ANS9LPf5KXYl cn0= CLINICAL HISTORY (test i1ugpCCoRSOleRB9IgUbFQ code = 3356) Ppn3vmj1SkoVPuzFHsDUgp qMXyhuDleq94fJU6gL51BK 9tBBUgQrU6CNBaovO6Xmy7 DYAyNBQfcIEqO503y9ktu8 waxyMpeYP8mSrvAZXiXGBo YWluXGZzMjAgTGVmdCBn 9eoxCzpZK5Y4yenY2cs02z knTtHIClGBU8AlWevHI0Ry EgeCAyIGNtIFxwYXJ9 SPECIMEN SOURCE (test k0xbsEPcKFBeeKJ1EbVcJN code = 3377) Duu1xxq7MrhATxtQBgFEkl nPXwvkSzzk55qEV0bR39KL 8zHSShHoC8OVWceeE6Pax0 DQWuLQDwvANbZ219s1tth0 vshiPvcXR8tOvnYWAqBAFa YWluXGZzMjAgTGVmdCHu [facility] 1rcc7hpRwbnRWmZQThiENn fQ== GROSS DESCRIPTION (test h5ikbDSpQNGnwNKvYyNbZB code = 3366) JsGNBzc2vkWEOanZIuYnNc MzNcZnRuYmpcdWMxXGRlZm Zkg9vjx037dIKqp2raAWVB rbapmFr2e1bbYEJwEcX8iJ YmMYxaN9ubuuRikPAcPYCc DXj8oP74KOQikP1ouGNgAE drpeNvLjX3WPvyZPFqVpU5 ZXSssDUtTLJfN2tfKKJjCO wdWPAqQYiroHJaTIG7eVrl g2T8jFQkyIDujGynLcWoOc TpTLQJs5WbUJn6lHnwJ1Yo XISrPsM4qVRgXAIfTKxePW SsAZIdfvW1oJ29ACodgeF3 xBWqq8Edj15pm938hU3rdY DoEIV0ZIIxBWKasYKbNPUp FGC8APZskMBiJ9z9AeTatP UpR2C2IvJwcZLgD9S3FeHd rNMsN2F7XcRjiVQjXYKjkK ZjQp3wbJYuoDRuyu3emo55 QQX0w4QkiMqjAMJ6DVQ3Vu ZcSz1xsFJdADErMAYaeWAj NDSbDH5zkGPeCHBhdC0iaq xjXHBnYnJkcmhlYWRccGdi zwZdDy2zfSuyQHP3FWqhO6 feoQ7uWoZ1GFdnK1zyeD8b IQy6OAavlMY2VBHokS3wQA 6dqfovr2uhIoLtTE1euram r1doGwKvBX9eaqj1a3hrEj VmHH5ygpwrs5gbInKgXQln ZPTogjwsKRWgy8ThiodnLA Vbp7SfC2UvdCriU61pwVsp V34kYGWttOtpgS9whBpseV 5cZjBcZnMyNFxwYXJkXHBs YWluXGYxXGZzMjBcbGFuZz EwMzNcaGljaFxmMVxkYmNo WWXoCXonF7ddDkOlKeTuCJ BBLiBSZWNlaXZlZCBpbiBm x7FyGLozorJzERSgiXYuOD dpdGggdGhlIHBhdGllbnRc M9N3ssOmTK4wYLDnTGYgE3 VwSYZoD51sVXPmhO4zHFUp LF9dRUIxdi6qkqsekJZyzW XdIB0iRAJjtuNqt8AdWU3x TE53lVXtzEijERqnZBkch0 evwITkn48joHF8lNLlxBJz Z42aLVIfhrUwE1ufAvGyGg IuEE3nIWZzKMgpSScpjgh1 xSKrjLAbpKD6DYTimO7dmJ 36adSegbVPXB3kyEgrGOdf aU5qAQOgVLjwDJJvW8GvnZ 9jDQ0XMuqpRSTpHLBUN9Pc I82ysQAboY== MICROSCOPIC DESCRIPTION o7vnmVTiILPprYF7JaJaYM (test code = 3371) Bme9meq1ZnoZYqhAThACgo uLHczkKwxr18vHZ8jZ07IS 2jPZWoFiN2KZOwlrI7Epb8 SSKxSYDbkJViH953b3qsk8 qbvyNdqRJ2rVqhNSElDAXw GTpoVTMfEzFjVWSQMa4PHP VEXHBhcn0= SPECIAL STUDIES (test v6alsFFqYYQrnND0UnEzIB code = 3376) Zdr8eld3GfyCQmnHQqPRax iPHjdpKuen75sKV0uE36RA 7fZLDvCvR1JZIxirX0Wrq9 TAJmMSJceIYeO415YPNnJT BdiYhvcwp1hE24NIVezR0s qRRcTHu9YDYudrAvsBtklW 3aSyPlIoIgDpSZfGVnnC95 GZQliaL8YFMcf11ua4HmlP zehtJmEMNwXPmhZ9c5UVXd DXTaVEW4d4Pek7SbnS2ffH 1daRuywD2sbRHetDC0ukcq v9Vkd0ZgX0vpgSZjuYMdzn FvILCiniUQXF4WGnOBOL2a L3ESFROSUahwYbDiWEdyXD JTEUdRGIVQODW0ESYAJPZx KCQJZZtkUQBgN42sdSTzfV BTbGlkZXMgRXhhbWluZWQ6 KBVCuh2xq7QaONFrlb39ls Uzx1JftAz4QWBvr231nj7p icU5QNIvGYP6QMp0UAIjFX EdbV2hYaG4tNYjKOBmUVK3 GVX9MUBgu8S8IV4yHIBzTM OpGKLxnzMoa8bbx4nqSLFy MSH9jxSwxA4iN7AqVQVns2 YgdGhlIHBhdGllbnRzIHNh dDHhEFUxtX00KIDgnAEeyE HwYFQuTDI7FGatvU7iGuJY npMkub5vbMIhh4OioCl6QO TwpwVqqkGwMUAsvzKuB36m qLWjkIHmw4ouvcPopbGfkR CnuWWiQWSrXNW5EEo6QJPa HIakFJTkRCyePOZiDX9esZ 9ayCaeaC6haRQbtDP5lohy sNSmrU7oA5GlQFKli4Uosb feb4RsDYUmcwTakg4ePRVu jGRKBFned5QsB1TuULo2u8 OwpLiyIKcnEGf4BoRoLVQm nZWzqOKEXO97APKbEMKxmE bvtL9yqYGBDICfsjE2u5T5 DBqaTGMkLDp2UWqchlPiOW PcmH4yBOAiAM7wJJw3uhJr NGSgm9NfAW3iGSTjyRMqCQ D4RVVbm4FjC4Atx7UbTOTc TKCfjp4paoCqVzLAhNCyKV Ttzz00ZLLcTG3wQ3shWWYh UTKomdGedZAke7VrNJMalT T9mJIrCG1QWjOQr23mEOVp YYUUonOmBVGgtGawrRD9eq D0wG6xVsFAvFGqOqKDTPyf deCtGNMvlp1apnUhJOMtFR Czb6PryLZygTOlnjOzK6Bk v5CoLROoan62GGsftSDmko 61KN7oT6Mcj6LwuZ5aSSyu OYDnk8CfmJRbsCDdHLNrz3 ByM5rsftouSZcwoNKtlX7s SVQyZHa2XBTdw5UyXLWfx2 QgYmUgcmVnYXJkZWQgYXMg fX78DLJ6wQpbjPfyeoEgIX 3hZYZbgpTdPWLfBIQwwG5o LStwuwUvKSJbmpN4d4K5MD emHDExpwLrTvveGJI4djMo snJ7iNOlK3usajzzKWyzJF Ybz3WbpE1nvJFMfAWkf2Iz lZZoaLBKiNOfJK9iwnFjIR 8dHSH8KLxvMLXIXLGzXNrd AGZdXJR5FGceDqltJSN9jo QvNRLbo8HaKAihW1exA99j kNswhUw2qJQboImdgUIxvU JtRGVgejV1w7D8GENxg6Gq bmcuXHBhcn0= Gross assessment was [facility] performed at ([facility], = 2777) Department of Pathology, [address] [place] [address], Technical component was [facility] performed at ([facility], = 2774) Department of Pathology, [address] [place], [place] [id number], Professional component [facility] was performed at ([facility], code = 2779) Department of Pathology, [address] [place] [address], [facility] CampusTISSUE [id number] 10:56:00Surgical Pathology Report Case: [id number] Authorizing Provider: Vandana Tejada MD Collected: 08/31/2020 06:37 PM Ordering Location: [address] Received: 09/01/2020 08:13 AM Service Pathologist: [...] REPORT TO FOLLOW. 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 x 6.1 x [...] evaluated Immunohistochemistry technical testing was performed at [facility], Pathology Laboratory where it was [...] to perform high complexity clinical la boratory testing.[facility], Department of Pathology, [address] [place] [address], [facility], [address] [place] [address], [facility], [facility], [address] [place] [address], BI, CHEST, WITH CONTRAST 2020-09-05 14:16:00Unlisted Reason for Exam - Click Yes and Enter Reason Below- >YesUnlisted 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 on09/05/2020 02:16 PMCT chest with IV [id number] 14:16:00Interface, External Ris In - 09/05/2020 2:18 [...] Smith Verified Date/Time: 09/05/2020 14:16:01 Reading Location: [address] [facility] 2020-09-05 14:16:00Interface, [...] Smith Verified Date/Time: 09/05/2020 14:16:01 Reading Location: [facility] C013Y CT Body [facility] 2020-09-05 14:16:00Interface, [...] Smith Verified Date/Time: 09/05/2020 14:16:01 Reading Location: [facility] B1 C013Y CT [facility] W/Doppler(CW/PW/Color) 2020-09-05 09:47:35 Test Item Value Reference Range Interpretation Comments Ejection Fraction Est EF is 55-60% (test code = 2574) PXN (test code = Interface, External Ris In PXN) - 09/05/2020 9:47 AM CDTTransthoracic Echocardiography Report (TTE) Demographics Patient Name DANIEL DEL VALLE Date of Study 09/05/2020 NEELAM Gender Female Visit Number [id number] Race Unknown Room Number 2146 Number Date of 1960 Referring Physician Vandana Tejada MD Age 60 year(s) [employer]ating [employer] As[employer]er MARTA Be Interpreting Eduardo Roberts MD Fellow [...] 2.81 m/s TR Gradient: 31.62 mmHg [facility] Echo W/Doppler(CW/PW/Color)2020-09-05 09:47:35 Test Item Value Reference Range Interpretation Comments Ejection Fraction Est EF is 55-60% (test code = 2574) PXN (test code = Interface, External Ris In PXN) - 09/05/2020 9:47 AM CDTTransthoracic Echocardiography Report (TTE) Demographics Patient Name DANIEL DEL VALLE Date of Study 09/05/2020 NEELAM Gender Female Visit Number [id number] Race Unknown Room Number 2146 Number Date of 1960 Referring Physician Vandana Tejada MD Age 60 year(s) Rotating [employer] As[employer] MARTA Be Interpreting Eduardo Roberts MD Fellow [...] 2.81 m/s TR Gradient: 31.62 mmHg [facility]2D Echo W/Doppler(CW/PW/Color)2020-09-05 09:47:35 Test Item Value Reference Range Interpretation Comments Ejection Fraction Est EF is 55-60% (test code = 2574) PXN (test code = Interface, External Ris In PXN) - 09/05/2020 9:47 AM CDTTransthoracic Echocardiography Report (TTE) Demographics Patient Name DANIEL DEL VALLE Date of Study 09/05/2020 NEELAM Gender Female Visit Number [id number] Race Unknown Room Number 2146 Number Date of 1960 Referring Physician Vandana Tejada MD Age 60 year(s) 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 The reference range was not u sed to interpret th is result as normal/abnormal . Albumin (test code = 3.6 g/dL 3.5-5 87554-0) Alkaline Phosphatase 106 U/L 40-150 (test code = 6768-6) Total Bilirubin (test 0.2 mg/dL 0.2-1.2 code = 1974-2) Sodium (test code = 139 meq/L 924-988 2081-2) Potassium (test code 4.7 meq/L 3.5-5.1 = 2823-3) Chloride (test code = 104 meq/L 98-107 5-0) CO2 (test code = 25 meq/L -29 2027-9) BUN (test code = 10 mg/dL 7- 3094-0) Creatinine (test code 0.70 mg/dL 0.57-1.25 = 2160-0) Glucose (test code = 159 mg/dL 70-105 H 2345-7) Calcium (test code = 8.8 mg/dL 8.4-10.2 49334-1) AST (test code = 9 U/L 5-34 1920-8) ALT (test code = 13 U/L 6-55 1742-6) EGFR (test code = 103 mL/min/1.73 [place] [address]-0) NOT ACCURATE CREATININE CLEARANCE IN PREDICTING GLOMERULAR FILTRATION RATE . ESTIMATED GFR I S NOT APPLICABLE FOR DIALYSIS PATIEN TS. JESSICA (test code = JESSICA) Filling Station Equipment Mechanic ID - BALA M Lab Interpretation Abnormal (test code = 99317-3) [facility] CampusComprehensive metabolic [id number] 07:34:00 Test Item Value Reference Range Interpretation Comments Protein, Total (test 7.5 See_Comment [Autom ated code = 2885-2) message] The system which generated this result transmit yumiko reference range : 6.0 - 8.3 gm/dL . The reference range was not u sed to interpret th is result as normal/abnormal . Albumin (test code = 3.6 g/dL 3.5-5 80209-0) Alkaline Phosphatase 106 U/L 40-150 (test code = 6768-6) Total Bilirubin (test 0.2 mg/dL 0.2-1.2 code = 1974-2) Sodium (test code = 139 meq/L 882-568 5952-2) Potassium (test code 4.7 meq/L 3.5-5.1 = 2823-3) Chloride (test code = 104 meq/L 98-107 2075-0) CO2 (test code = 25 meq/L 22-29 2028-9) BUN (test code = 10 mg/dL 7-21 3094-0) Creatinine (test code 0.70 mg/dL 0.57-1.25 = 2160-0) Glucose (test code = 159 mg/dL 70-105 H 2345-7) Calcium (test code = 8.8 mg/dL 8.4-10.2 55354-6) AST (test code = 9 U/L 5-34 1920-8) ALT (test code = 13 U/L 6-55 1742-6) EGFR (test code = 103 mL/min/1.73 [place] [address]-1) NOT ACCURATE CREATININE CLEARANCE IN PREDICTING GLOMERULAR FILTRATION RATE . ESTIMATED GFR I S NOT APPLICABLE FOR DIALYSIS PATIEN TS. JESSICA (test code = JESSICA) Filling Station Equipment Mechanic ID - BALA Mary Lab Interpretation Abnormal (test code = 27768-5) [facility] CampusComprehenve metabolic [id number] 07:34:00 Test Item Value Reference Range Interpretation Comments Protein, Total (test 7.5 See_Comment [Autom ated code = 2885-2) message] The system which generated this result transmit yumiko reference range : 6.0 - 8.3 gm/dL . The reference range was not u sed to interpret th is result as normal/abnormal . Albumin (test code = 3.6 g/dL 3.5-5 66022-3) Alkaline Phosphatase 106 U/L 40-150 (test code = 6768-6) Total Bilirubin (test 0.2 mg/dL 0.2-1.2 code = 1974-2) Sodium (test code = 139 meq/L 273-029 4326-2) Potassium (test code 4.7 meq/L 3.5-5.1 = 2823-3) Chloride (test code = 104 meq/L 98-107 2075-0) CO2 (test code = 25 meq/L 22-29 2028-9) BUN (test code = 10 mg/dL 7-21 3094-0) Creatinine (test code 0.70 mg/dL 0.57-1.25 = 2160-0) Glucose (test code = 159 mg/dL 70-105 H 2345-7) Calcium (test code = 8.8 mg/dL 8.4-10.2 05752-6) AST (test code = 9 U/L 5-34 1920-8) ALT (test code = 13 U/L 6-55 1742-6) EGFR (test code = 103 mL/min/1.73 [place] [address]-6) NOT ACCURATE CREATININE CLEARANCE IN PREDICTING GLOMERULAR FILTRATION RATE . ESTIMATED GFR I S NOT APPLICABLE FOR DIALYSIS PATIEN TS. JESSICA (test code = JESSICA) Filling Station Equipment Mechanic ID - BALA M Lab Interpretation Abnormal (test code = 66246-0) [facility]PRE[facility] METABOL[facility] [id number] 07:34:00 Test Item Value Reference Range Interpretation [...] S NOT APPLICABLE FOR DIALYSIS PATIEN TS. Filling Station Equipment Mechanic ID - BALA MSARS-CoV2/RT-PCR (Asymptomatic ONLY)2020-09-04 12:52:00 Test Item Value Reference Range Interpretation Comments SARS-COV2/RT-PCR Negative Not Detected, (test code = Negative, See 55442-8) external report for linked test SARS-COV-2 [facility] PERFORMING LAB (test code = 55263-7) JESSICA (test code = Negative result for [...] of the Act. Fact Sheet for Healthcare Providers:https://www.CumuLogic/sites/default/f nito/product/documents/F act_Sheet_HC_Providers_L gqs_RXTU-DmN-3.pdf Fact Sheet for Healthcare Patients:https://www.Lovin' Spoonfuls/sites/default/fi les/product/documents/Fa ct_Sheet_Patients_Lyra_S ARS-CoV-2.pdf Performing Laboratory:[facility] [place] [place] [address] [facility]Asymptomatic ONLY)2020-09-04 12:52:00 Test Item Value Reference Range Interpretation Comments SARS-COV2/RT-PCR Negative Not Detected, (test code = Negative, See 39207-9) external report for linked test SARS-COV-2 [facility] PERFORMING [facility] (test code = 64832-1) JESSICA (test code = Negative result for [...] of the Act. Fact Sheet for Healthcare Providers:https://www.CumuLogic/sites/default/f nito/product/documents/F act_Sheet_HC_Providers_L gft_MCQB-FlE-6.pdf Fact Sheet for Healthcare Patients:https://www.Lovin[employer] Spoonfuls/sites/default/fi les/product/documents/Fa ct_Sheet_Patients_Lyra_S ARS-CoV-2.pdf Performing Laboratory:[facility] [place] [address] [facility] (Asymptomatic ONLY)2020-09-04 12:52:00 Test Item Value Reference Range Interpretation Comments SARS-COV2/RT-PCR Negative Not Detected, (test code = Negative, See 59778-9) external report for linked test SARS-COV-2 [facility] PERFORMING LAB (test code = 68398-9) JESSICA (test code = Negative result for [...] of the Act. Fact Sheet for Healthcare Providers:https://www.CumuLogic/sites/default/f nito/product/documents/F act_Sheet_HC_Providers_L mdp_NMXF-ZbE-6.pdf Fact Sheet for Healthcare Patients:https://www.Pubster.Tutellus/sites/default/fi les/product/documents/Fa ct_Sheet_Patients_Lyra_S ARS-CoV-2.pdf Performing Laboratory:[facility] [place] [address] [facility] ([facility])2020-09-04 12:52:00 Test Item Value Reference Range Interpretation Comments SARS-COV2/RT-PCR (test Negative Not Detected, Negative, code = 4588737) See external report for linked test SARS-COV-[address] [facility] (test code = 3826280) Negative result for this test determines that [...] 564(g) of the Act.Fact Sheet for Healthcare Providers:https://www.Trly Uniqidel.com/sites/default/files/product/documents/Fact_Shee a_HH_Fsugnefmw_Vuyq_CEJA-NvU-8.pdfFact Sheet for Healthcare Patients:https://www.BullionVault.com/sites/default/files/product/ documents/Wbtv_Vfght_Rcnilafa_Dfkb_HHSV-LfJ-2.pdfPerforming Laboratory:[facility], [place] [address]ISE with platelet count + automated [id number] 06:38:00 Test Item Value Reference Range Interpretation Comments WBC (test code = 6690-2) 11.4 See_Comment H [A utomated message] The system [employer] generated this result transmitted ref erence range: 3.5 - 10 .5 K/L. The refe rence range was not u sed to interpret this result as normal/abnor mal. RBC (test code = 789-8) 4.35 See_Comment [Au tomated message] The system [employer] generated this result transmitted ref erence range: 3.93 - 5 .22 M/L. The refe rence range was not u sed to interpret this result as normal/abnor mal. MCHC (test code = 786-4) 28.0 See_Comment L [A utomated message] The system [employer] generated this result transmitted ref erence range: [...] See_Comment [Aut omated message] 777-3) The system [employer] generated this result transmitted ref erence range: 150 - 45 0 K/CU MM. The referen ce range was not u sed to interpret this result as normal/abnor mal. MPV (test code = 9.0 fL 9.4-12.3 L 18833-1) nRBC (test code = 413) 0 See_Comment [Aut omated message] The system [employer] generated this result transmitted ref erence range: [...] H [Aut omated message] 670) The system [employer] generated this result transmitted ref erence range: 1.56 - 6 .13 K/L. The refe rence range was not u sed to interpret this result as normal/abnor mal. # Lymphs (test code = 2.06 See_Comment [Auto mated message] 414) The system [employer] generated this result transmitted ref erence range: 1.18 - 3 .74 K/L. The refe rence range was not u sed to interpret this result as normal/abnor mal. # Monos (test code = 0.95 See_Comment H [Autom ated message] 415) The system [employer] generated this result transmitted ref erence range: 0.24 - 0 .36 K/L. The refe rence range was not u sed to interpret this result as normal/abnor mal. # Eos (test code = 416) 0.46 See_Comment H [Au tomated message] The system [employer] generated this result transmitted ref erence range: 0.04 - 0 .36 K/L. The refe rence range was not u sed to interpret this result as normal/abnor mal. # Baso (test code = 417) 0.03 See_Comment [A utomated message] The system [employer] generated this result transmitted ref erence range: 0.01 - 0 .08 K/L. The refe rence range was not u sed to interpret this result as normal/abnor mal. Immature 1 % 0-1 Granulocytes-Relative (test code = 2801) Lab Interpretation (test Abnormal code = 17623-1) [facility] with platelet count + automated [id number] 06:38:00 Test Item Value Reference Range Interpretation Comments WBC (test code = 6690-2) 11.4 See_Comment H [A utomated message] The system [employer] generated this result transmitted ref erence range: 3.5 - 10 .5 K/L. The refe rence range was not u sed to interpret this result as normal/abnor mal. RBC (test code = 789-8) 4.35 See_Comment [Au tomated message] The system [employer] generated this result transmitted ref erence range: 3.93 - 5 .22 M/L. The refe rence range was not u sed to interpret this result as normal/abnor mal. MCHC (test code = 786-4) 28.0 See_Comment L [A utomated message] The system [employer] generated this result transmitted ref erence range: [...] See_Comment [Aut omated message] 777-3) The system [employer] generated this result transmitted ref erence range: 150 - 45 0 K/CU MM. The referen ce range was not u sed to interpret this result as normal/abnor mal. MPV (test code = 9.0 fL 9.4-12.3 L 47246-4) nRBC (test code = 413) 0 See_Comment [Aut omated message] The system [employer] generated this result transmitted ref erence range: [...] H [Aut omated message] 670) The system [employer] generated this result transmitted ref erence range: 1.56 - 6 .13 K/L. The refe rence range was not u sed to interpret this result as normal/abnor mal. # Lymphs (test code = 2.06 See_Comment [Auto mated message] 414) The system [employer] generated this result transmitted ref erence range: 1.18 - 3 .74 K/L. The refe rence range was not u sed to interpret this result as normal/abnor mal. # Monos (test code = 0.95 See_Comment H [Autom ated message] 415) The system [employer] generated this result transmitted ref erence range: 0.24 - 0 .36 K/L. The refe rence range was not u sed to interpret this result as normal/abnor mal. # Eos (test code = 416) 0.46 See_Comment H [Au tomated message] The system [employer] generated this result transmitted ref erence range: 0.04 - 0 .36 K/L. The refe rence range was not u sed to interpret this result as normal/abnor mal. # Baso (test code = 417) 0.03 See_Comment [A utomated message] The system [employer] generated this result transmitted ref erence range: 0.01 - 0 .08 K/L. The refe rence range was not u sed to interpret this result as normal/abnor mal. Immature 1 % 0-1 Granulocytes-Relative (test code = 2801) Lab Interpretation (test Abnormal code = 54977-7) [facility] with platelet count + automated [id number] 06:38:00 Test Item Value Reference Range Interpretation Comments WBC (test code = 6690-2) 11.4 See_Comment H [A utomated message] The system [employer] generated this result transmitted ref erence range: 3.5 - 10 .5 K/L. The refe rence range was not u sed to interpret this result as normal/abnor mal. RBC (test code = 789-8) 4.35 See_Comment [Au tomated message] The system [employer] generated this result transmitted ref erence range: 3.93 - 5 .22 M/L. The refe rence range was not u sed to interpret this result as normal/abnor mal. MCHC (test code = 786-4) 28.0 See_Comment L [A utomated message] The system [employer] generated this result transmitted ref erence range: [...] See_Comment [Aut omated message] 777-3) The system [employer] generated this result transmitted ref erence range: 150 - 45 0 K/CU MM. The referen ce range was not u sed to interpret this result as normal/abnor mal. MPV (test code = 9.0 fL 9.4-12.3 L 53842-7) nRBC (test code = 413) 0 See_Comment [Aut omated message] The system [employer] generated this result transmitted ref erence range: [...] H [Aut omated message] 670) The system [employer] generated this result transmitted ref erence range: 1.56 - 6 .13 K/L. The refe rence range was not u sed to interpret this result as normal/abnor mal. # Lymphs (test code = 2.06 See_Comment [Auto mated message] 414) The system [employer] generated this result transmitted ref erence range: 1.18 - 3 .74 K/L. The refe rence range was not u sed to interpret this result as normal/abnor mal. # Monos (test code = 0.95 See_Comment H [Autom ated message] 415) The system [employer] generated this result transmitted ref erence range: 0.24 - 0 .36 K/L. The refe rence range was not u sed to interpret this result as normal/abnor mal. # Eos (test code = 416) 0.46 See_Comment H [Au tomated message] The system [employer] generated this result transmitted ref erence range: 0.04 - 0 .36 K/L. The refe rence range was not u sed to interpret this result as normal/abnor mal. # Baso (test code = 417) 0.03 See_Comment [A utomated message] The system [employer] generated this result transmitted ref erence range: 0.01 - 0 .08 K/L. The refe rence range was not u sed to interpret this result as normal/abnor mal. Immature 1 % 0-1 Granulocytes-Relative (test code = 2801) Lab Interpretation (test Abnormal code = 14892-0) [facility] W/PLT COUNT & AUTO [id number] 06:38:00 Test Item Value Reference Range Interpretation [...] PERCENT (BEAKER) (test code = 2801) Prothrombin time/[id number] 05:07:00 Test Item Value Reference Interpretation Comments [...] valves. Lab Interpretation Abnormal (test code = 67154-0) [facility] CampusProthrombin time/[id number] 05:07:00 Test Item Value Reference Interpretation Comments [...] valves. Lab Interpretation Abnormal (test code = 24784-6) [facility] CampusProthrombin time/[id number] 05:07:00 Test Item Value Reference Interpretation Comments [...] valves. Lab Interpretation Abnormal (test code = 89690-7) [facility] CampusPROTHROMBIN TIME/[id number] 05:07:00 Test Item Value Reference Range Interpretation Comments PROTIME (BEAKER) 19.2 seconds 11.9-14.2 H (test code = 759) INR (BEAKER) (test 1.64 See_Comment [Automat ed message] code = 370) The system [employer] generated this result transmitted ref erence range: [...] See_Comment H [A utomated message] The system [employer] generated this result transmitted ref erence range: 3.5 - 10 .5 K/L. The refe rence range was not u sed to interpret this result as normal/abnor mal. RBC (test code = 789-8) 4.36 See_Comment [Au tomated message] The system [employer] generated this result transmitted ref erence range: 3.93 - 5 .22 M/L. The refe rence range was not u sed to interpret this result as normal/abnor mal. MCHC (test code = 786-4) 28.6 See_Comment L [A utomated message] The system [employer] generated this result transmitted ref erence range: [...] See_Comment [Aut omated message] 777-3) The system [employer] generated this result transmitted ref erence range: 150 - 45 0 K/CU MM. The referen ce range was not u sed to interpret this result as normal/abnor mal. MPV (test code = 8.9 fL 9.4-12.3 L 16761-3) nRBC (test code = 413) 0 See_Comment [Aut omated message] The system [employer] generated this result transmitted ref erence range: 0 - 0 /1 00 WBC. The refere nce range was not u sed to interpret this result as normal/abnor mal. Lab Interpretation (test Abnormal code = 90944-4) [facility] (Hemogram only)2020-09-02 04:59:00 Test Item Value Reference Range Interpretation Comments WBC (test code = 6690-2) 10.9 See_Comment H [A utomated message] The system [employer] generated this result transmitted ref erence range: 3.5 - 10 .5 K/L. The refe rence range was not u sed to interpret this result as normal/abnor mal. RBC (test code = 789-8) 4.36 See_Comment [Au tomated message] The system [employer] generated this result transmitted ref erence range: 3.93 - 5 .22 M/L. The refe rence range was not u sed to interpret this result as normal/abnor mal. MCHC (test code = 786-4) 28.6 See_Comment L [A utomated message] The system [employer] generated this result transmitted ref erence range: [...] See_Comment [Aut omated message] 777-3) The system [employer] generated this result transmitted ref erence range: 150 - 45 0 K/CU MM. The referen ce range was not u sed to interpret this result as normal/abnor mal. MPV (test code = 8.9 fL 9.4-12.3 L 18659-9) nRBC (test code = 413) 0 See_Comment [Aut omated message] The system [employer] generated this result transmitted ref erence range: 0 - 0 /1 00 WBC. The refere nce range was not u sed to interpret this result as normal/abnor mal. Lab Interpretation (test Abnormal code = 44791-1) [facility] (Hemogram only)2020-09-02 04:59:00 Test Item Value Reference Range Interpretation Comments WBC (test code = 6690-2) 10.9 See_Comment H [A utomated message] The system [employer] generated this result transmitted ref erence range: 3.5 - 10 .5 K/L. The refe rence range was not u sed to interpret this result as normal/abnor mal. RBC (test code = 789-8) 4.36 See_Comment [Au tomated message] The system [employer] generated this result transmitted ref erence range: 3.93 - 5 .22 M/L. The refe rence range was not u sed to interpret this result as normal/abnor mal. MCHC (test code = 786-4) 28.6 See_Comment L [A utomated message] The system [employer] generated this result transmitted ref erence range: [...] See_Comment [Aut omated message] 777-3) The system [employer] generated this result transmitted ref erence range: 150 - 45 0 K/CU MM. The referen ce range was not u sed to interpret this result as normal/abnor mal. MPV (test code = 8.9 fL 9.4-12.3 L 62806-2) nRBC (test code = 413) 0 See_Comment [Aut omated message] The system [employer] generated this result transmitted ref erence range: 0 - 0 /1 00 WBC. The refere nce range was not u sed to interpret this result as normal/abnor mal. Lab Interpretation (test Abnormal code = 89575-5) [facility] (HEMOGRAM ONLY)2020-09-02 04:59:00 Test Item Value [...] (BEAKER) (test code = 413) U/S, CORE [id number] 08:58:00Reason for exam:->BIOPSY LEFT ILIOPSOAS MASS US VS CT GUIDED [facility]CHRISTIANE : 1960 Sex: FFINAL REPORT Procedure: Ultrasound-Guided left iliopsoas/inguinal mass core biopsy Pre/post-procedure diagnosis: Left iliopsoas/inguinal mass Hand Painter: Abdirahman Chopra MD Assistants: none Sedation: Moderate [...] MDReport Verified Date/Time: 09/01/2020 08:58:59 Reading Location: [facility] Diagnostic Imaging Reading Room - [facility] 1.310.12 US Core [id number] 08:58:00Interface, External Ris In - 09/01/2020 9:01 AM CDTFINAL REPORT Procedure: Ultrasound-Guided left iliopsoas/inguinal mass core biopsy Pre/post-procedure diagnosis: Left iliopsoas /inguinal mass Hand Painter: Abdirahman Chopra MD Assistants: none Sedation: Moderate [...] MDReport Verified Date/Time: 09/01/2020 08:58:59 Reading Location: [facility] Diagnostic Imaging Reading Room [place] [address] 1.310.12 [facility] 2020-09-01 08:58:00Interface, External Ris In - 09/01/2020 9:01 AM CDTFINAL REPORT Procedure: Ultrasound-Guided left iliopsoas/inguinal mass core biopsy Pre/post-procedure diagnosis: Left iliopsoas /inguinal mass Hand Painter: Abdirahman Chopra MD Assistants: none Sedation: Moderate [...] MDReport Verified Date/Time: 09/01/2020 08:58:59 Reading Location: [facility] Diagnostic Imaging Reading Room - [facility] 1.310.12 [facility] 2020-09-01 08:58:00Interface, External Ris In - 09/01/2020 9:01 AM CDTFINAL REPORT Procedure: Ultrasound-Guided left iliopsoas/inguinal mass core biopsy Pre/post-procedure diagnosis: Left iliopsoas /inguinal mass Hand Painter: Abdirahman Chopra MD Assistants: none Sedation: Moderate [...] Chopra Verified Date/Time: 09/01/2020 08:58:59 Reading Location: [facility] Diagnostic Imaging Reading Room [place] [address] 1.310.12 [facility] (HEMOGRAM ONLY)2020-09-01 05:07:00 Test Item Value Reference [...] 0-0 (BEAKER) (test code = 413) PROTHROMBIN TIME/[id number] 04:44:00 Test Item Value Reference Range Interpretation Comments PROTIME (BEAKER) 19.1 seconds 11.9-14.2 H (test code = 759) INR (BEAKER) (test 1.63 See_Comment [Automat ed message] code = 370) The system [employer] generated this result transmitted ref erence range: <=5.90. The reference range was not used to int erpret this result as normal/abnormal . RECOMMENDED COUMADIN/WARFARIN INR THERAPY RANGESSTANDARD DOSE: 2.0 - 3.0 Includes: PROPHYLAXIS forvenous thrombosis, systemic embolization; TREATMENT for venous thrombosis and/or pulmonary embolus.HIGH RISK: Target INR is 2.5-3.5 for patients with mechanical heart valves.Vitamin B12 and [id number] 06:16:00 Test Item Value Reference Range Interpretation Comments Vitamin B12 (test 327 pg/mL 213-816 code = 2132-9) Folate (test code = 3.70 ng/mL See_Comment L [Automa yumiko 2284-8) message] The system which generated this result transmit yumiko reference range : >=7.00. The reference range was not used to interpret this result as normal/abnormal . JESSICA (test code = JESSICA) Filling Station Equipment Mechanic ID - BALA M Lab Interpretation Abnormal (test code = 31695-4) [facility]Vitamin B12 and [id number] 06:16:00 Test Item Value Reference Range Interpretation Comments Vitamin B12 (test 327 pg/mL 213-816 code = 2132-9) Folate (test code = 3.70 ng/mL See_Comment L [Automa yumiko 2284-8) message] The system which generated this result transmit yumiko reference range : >=7.00. The reference range was not used to interpret this result as normal/abnormal . JESSICA (test code = JESSICA) Filling Station Equipment Mechanic ID - BALA M Lab Interpretation Abnormal (test code = 51658-6) [facility] CampusVitamin B12 and [id number] 06:16:00 Test Item Value Reference Range Interpretation Comments Vitamin B12 (test 327 pg/mL 213-816 code = 2132-9) Folate (test code = 3.70 ng/mL See_Comment L [Automa yumiko 2284-8) message] The system which generated this result transmit yumiko reference range : >=7.00. The reference range was not used to interpret this result as normal/abnormal . JESSICA (test code = JESSICA) Filling Station Equipment Mechanic ID - BALA M Lab Interpretation Abnormal (test code = 98772-9) [facility]VIT[facility]IN B12 AND [id number] 06:16:00 Test Item Value Reference Range Interpretation Comments VITAMIN B12 (BEAKER) 327 pg/mL 213-816 (test code = 774) FOLATE (BEAKER) 3.70 ng/mL See_Comment L [Automated message] (test code = 362) The system which generated this result transmitted ref erence range: >=7.00. The reference range was not used to interpr et this result as normal/abnormal . Filling Station Equipment Mechanic ID - BALA MPROTHROMBIN TIME/[id number] 05:36:00 Test Item Value Reference Range Interpretation [...] 0-0 (BEAKER) (test code = 413) CT, [id number] 11:32:00Unlisted Reason for Exam - Click Yes and Enter Reason Below->NoWill this procedure require oral contrast?->No [facility] 1960 [...] size and patent. Right lower extremity: The CLIENT SERVICES ASSOCIATE, DFA, SFA, and popliteal arteries are patent. Trifurcation vessels are patent. Left lower extremity: The CLIENT SERVICES ASSOCIATE, DFA, SFA, and popliteal arteries are patent. [...] Jayort Verified Date/Time: 08/30/2020 11:32:07 Reading Location: [facility] B1 P048 Angio Body Reading Room CT, CTA AAA, W/ BELLA.EXT.RUNOFF 2020-08-30 11:32:00LLE DVT, assess prior pelvic mass, please assess venous phaseAnesthesia:->None [facility] : 1960 [...] size and patent. Right lower extremity: The CLIENT SERVICES ASSOCIATE, DFA, SFA, and popliteal arteries are patent. Trifurcation vessels are patent. Left lower extremity: The CLIENT SERVICES ASSOCIATE, DFA, SFA, and popliteal arteries are patent. [...] Date/Time: 08/30/2020 11:32:07 Reading Location: [place] [address] Angio Body Reading Room CT abdomen/pelvis with [...] size and patent. Right lower extremity: The CLIENT SERVICES ASSOCIATE, DFA, SFA, and popliteal arteries are patent. Trifurcation vessels are patent. Left lower extremity: The CLIENT SERVICES ASSOCIATE, DFA, SFA, and popliteal arteries are patent. [...] edema.No evidence remote metastatic disease. Signed: Kale Jyaort Verified Date/Time: 08/30/2020 11:32:07 Reading Location: [place] [address] Angio Body Reading Room [facility] and [id number] 11:32:00Interface, External Ris In - 08/30/2020 11:34 [...] size and patent. Right lower extremity: The CLIENT SERVICES ASSOCIATE, DFA, SFA, and popliteal arteries are patent. Trifurcation vessels are patent. Left lower extremity: The CLIENT SERVICES ASSOCIATE, DFA, SFA, and popliteal arteries are patent. [...] Jayeport Verified Date/Time: 08/30/2020 11:32:07 Reading Location: [facility] B1 P048 Angio Body Reading [facility] CenterCT [facility]pelvis with IV [id number] 11:32:00Interface, External Ris In - 08/30/2020 11:34 [...] size and patent. Right lower extremity: The CLIENT SERVICES ASSOCIATE, DFA, SFA, and popliteal arteries are patent. Trifurcation vessels are patent. Left lower extremity: The CLIENT SERVICES ASSOCIATE, DFA, SFA, and popliteal arteries are patent. [...] MDReport Verified Date/Time: 08/30/2020 11:32:07 Reading Location: [facility] P048 Angio Body Reading Room [facility] Center[facility] AAA and [id number] 11:32:00Interface, External Ris In - 08/30/2020 11:34 [...] size and patent. Right lower extremity: The CLIENT SERVICES ASSOCIATE, DFA, SFA, and popliteal arteries are patent. Trifurcation vessels are patent. Left lower extremity: The CLIENT SERVICES ASSOCIATE, DFA, SFA, and popliteal arteries are patent. [...] MDReport Verified Date/Time: 08/30/2020 11:32:07 Reading Location: [facility] P048 Angio Body Reading [facility]vis with IV [id number] 11:32:00Interface, External Ris In - 08/30/2020 11:34 [...] size and patent. Right lower extremity: The CLIENT SERVICES ASSOCIATE, DFA, SFA, and popliteal arteries are patent. Trifurcation vessels are patent. Left lower extremity: The CLIENT SERVICES ASSOCIATE, DFA, SFA, and popliteal arteries are patent. [...] Date/Time: 08/30/2020 11:32:07 Reading Location: [place] [address] Angio Body Reading [facility] AAA and Necjzw7581-30-96 11:32:00Interface, External Ris In - 08/30/2020 11:34 [...] size and patent. Right lower extremity: The CLIENT SERVICES ASSOCIATE, DFA, SFA, and popliteal arteries are patent. Trifurcation vessels are patent. Left lower extremity: The CLIENT SERVICES ASSOCIATE, DFA, SFA, and popliteal arteries are patent. [...] MDReport Verified Date/Time: 08/30/2020 11:32:07 Reading Location: [facility] P048 Angio Body Reading [facility] CenterArterial doppler leg, [id number] 09:31:54Ejection FractionSLEH ECHO HEARTLAB MKCKESSON CPA Left [...] + + + + + + !Mid PROVIDER SCRIBE ! !59.4 ! ! ! + + +-- + + + !Dist PROVIDER SCRIBE ! !61.6 ! ! ! + + [...] DANIEL DEL VALLE Date of Study 08/29/2020 NEELMA Age 60 Visit Number [id number] Gender Female Accession Number [id number] Date of 1960 Referring Formerly [facility] Room Number 3038 Physician Richard Rotating Field Assembler Stacy Proctor Interpreting Vivek Benitez MD RVT [...] + + + + + + !Mid PROVIDER SCRIBE ! !59.4 ! ! ! + + + + + + !Dist PROVIDER SCRIBE ! !61.6 ! ! ! + + + ---------+ + + !Prox JANETTE ! !64.3 ! ! ! + + + +---- + + !Mid JANETTE ! !80.3 ! ! ! + + + + + + !Dist JANETTE ! !67.1 ! ! ! + + + + + +[facility]terial doppler leg, [id number] 09:31:54Ejection [facility]SST[facility] MKCKESSON [facility] Left Impression1. The common femoral, profunda [...] + + + + + + !Mid PROVIDER SCRIBE ! !59.4 ! ! ! + + +-- + + + !Dist PROVIDER SCRIBE ! !61.6 ! ! ! + + [...] Study 08/29/2020 NEELAM Age 60 Visit Number [id number] Gender Female Accession Number [id number] Date of 1960 [facility] Room Number 7256 Physician Richard Rotating Field Assembler Stacy Proctor Interpreting Vivek Benitez MD RVT [...] + + + + + + !Mid PROVIDER SCRIBE ! !59.4 ! ! ! + + + + + + !Dist PROVIDER SCRIBE ! !61.6 ! ! ! + + + ---------+ + + !Prox JANETTE ! !64.3 ! ! ! + + + +---- + + !Mid JANETTE ! !80.3 ! ! ! + + + + + + !Dist JANETTE ! !67.1 ! ! ! + + + + + +[facility] HospitalArterial doppler leg, [id number] 09:31:54Ejection FractionSST. [facility] ECHO HEARTLAB MKCKESSON [facility] Left Impression1. The common femoral, profunda [...] + + + + + + !Mid PROVIDER SCRIBE ! !59.4 ! ! ! + + +-- + + + !Dist PROVIDER SCRIBE ! !61.6 ! ! ! + + [...] Study 08/29/2020 NEELAM Age 60 Visit Number [id number] Gender Female Accession Number [id number] Date of 1960 Referring Formerly [facility] Room Number 2546 Physician Richard Rotating Field Assembler Stacy Benitez MD RVT Physician ProcedureType of [...] + + + + + + !Mid PROVIDER SCRIBE ! !59.4 ! ! ! + + + + + + !Dist PROVIDER SCRIBE ! !61.6 ! ! ! + + + ---------+ + + !Prox JANETTE ! !64.3 ! ! ! + + + +---- + + !Mid JANETTE ! !80.3 ! ! ! + + + + + + !Dist JANETTE ! !67.1 ! ! ! + + + + + +[facility] HospitalBUN and [id number] 06:17:00 Test Item Value Reference Range Interpretation [...] mL/min/1.73 [place] [address]-8) NOT ACCURATE CREATININE CLEARANCE IN PREDICTING GLOMERULAR FILTRATION RATE . ESTIMATED GFR I S NOT APPLICABLE FOR DIALYSIS PATIEN TS. JESSICA (test code = Filling Station Equipment Mechanic ID - BS JESSICA) [facility] and [id number] 06:17:00 Test Item Value Reference Range Interpretation [...] mL/min/1.73 [place] [address]-5) NOT ACCURATE CREATININE CLEARANCE IN PREDICTING GLOMERULAR FILTRATION RATE . ESTIMATED GFR I S NOT APPLICABLE FOR DIALYSIS PATIEN TS. JESSICA (test code = Filling Station Equipment Mechanic ID - BS JESSICA) [facility] and [id number] 06:17:00 Test Item Value Reference Range Interpretation [...] mL/min/1.73 [place] [address]-4) NOT ACCURATE CREATININE CLEARANCE IN PREDICTING GLOMERULAR FILTRATION RATE . ESTIMATED GFR I S NOT APPLICABLE FOR DIALYSIS PATIEN TS. JESSICA (test code = Filling Station Equipment Mechanic ID - BS JESSICA) [facility] AND CREATININE [id number] 06:17:00 Test Item Value Reference Range Interpretation Comments BLOOD UREA NITROGEN 13 mg/dL 7-21 (BEAKER) (test code = 354) CREATININE (BEAKER) 0.72 mg/dL 0.57-1.25 (test code = 358) BUN/CREAT RATIO 18 For a normal (BEAKER) (test code individu al on a = 8723395724) normal diet, t he reference inter jewel for the mass ra nabil ranges between 12:1 and 20:1 (BUN i n mg/dL/creatinin e in mg/dL) EGFR (BEAKER) (test 100 mL/min/1.73 ESTIM ATED GFR IS code = 1092) sq m NOT ACCURATE CREATININE CLEARANCE IN PREDICTING GLOMERULAR FILTRATION RATE . ESTIMATED GFR I S NOT APPLICABLE FOR DIALYSIS PATIEN TS. Filling Station Equipment Mechanic ID - BSCBC (HEMOGRAM ONLY)2020-08-30 05:50:00 Test [...] 0-0 (BEAKER) (test code = 413) PROTHROMBIN TIME/[id number] 05:48:00 Test Item Value Reference Range Interpretation Comments PROTIME (BEAKER) 21.5 seconds 11.9-14.2 H (test code = 759) INR (BEAKER) (test 1.89 See_Comment [Automat ed message] code = 370) The system ZANY OX generated this result transmitted ref erence range: [...] 1.0-2.0 units/mL once daily enoxaparin Ref: CHEST 2012;141:[id number] Lab Interpretation (test Normal code = 11436-0) [facility] CampusHeparin Assay - Low Molecular [id number] 14:07:00 Test Item Value Reference Range Interpretation Comments Anti 10A-Lovenox (test 0.85 u/ml 0.6-2 code = 1605) JESSICA (test code = JESSICA) Anti-Factor 10-A Level (Heparin Assay for Low Molecular Weight Heparin)Monitoring Guidelines: Blood samples should be obtained 4 hours post subcutaneous injection (time of Peak level) Therapeutic Peak Levels: 0.6-1.0 units/mL twice daily enoxaparin 1.0-2.0 units/mL once daily enoxaparin Ref: CHEST 2012;141:[id number] Lab Interpretation (test Normal code = 98281-0) [facility] CampusHeparin Assay - Low Molecular [id number] 14:07:00 Test Item Value Reference Range Interpretation Comments Anti 10A-Lovenox (test 0.85 u/ml 0.6-2 code = 1605) JESSICA (test code = JESSICA) Anti-Factor 10-A Level (Heparin Assay for Low Molecular Weight Heparin)Monitoring Guidelines: Blood samples should be obtained 4 hours post subcutaneous injection (time of Peak level) Therapeutic Peak Levels: 0.6-1.0 units/mL twice daily enoxaparin 1.0-2.0 units/mL once daily enoxaparin Ref: CHEST 2012;141:[id number] Lab Interpretation (test Normal code = 47191-9) [facility] CampusHEPARIN ASSAY - LOW MOLECULAR [id number] 14:07:00 Test Item Value Reference Range Interpretation Comments LOVENOX-ANTI 10A (BEAKER) (test 0.85 u/ml 0.60-2.00 code = 1605) Anti-Factor 10-A Level (Heparin Assay for Low Molecular Weight Heparin)Monitoring Guidelines: Blood samples should be obtained 4 hours post subcutaneous injection (time of Peak level) Therapeutic Peak Levels: 0.6-1.0 units/mL twice daily enoxaparin 1.0-2.0 units/mL once daily enoxaparinRef: CHEST 2012;141:[id number] (HEMOGRAM ONLY)2020-08-29 13:22:00 Test Item Value Reference [...] 0-0 (BEAKER) (test code = 413) PROTHROMBIN TIME/[id number] 05:41:00 Test Item Value Reference Range Interpretation Comments PROTIME (BEAKER) 17.4 seconds 11.9-14.2 H (test code = 759) INR (BEAKER) (test 1.45 See_Comment [Automat ed message] code = 370) The system ZANY OX generated this result transmitted ref erence range: <=5.90. The reference range was not used to int erpret this result as normal/abnormal . RECOMMENDED COUMADIN/WARFARIN INR THERAPY RANGESSTANDARD DOSE: 2.0 - 3.0 Includes: PROPHYLAXIS forvenous thrombosis, systemic embolization; TREATMENT for venous thrombosis and/or pulmonary embolus.HIGH RISK: Target INR is 2.5-3.5 for patients with mechanical heart valves.BUN AND CREATININE [id number] 17:04:00 Test Item Value Reference Range Interpretation Comments BLOOD UREA NITROGEN 9 mg/dL 7-21 (BEAKER) (test code = 354) CREATININE (BEAKER) 0.79 mg/dL 0.57-1.25 (test code = 358) BUN/CREAT RATIO 11 For a normal (MEEAKER) (test code individu al on a = 4295149785) normal diet, t he reference inter jewel for the mass ra nabil ranges between 12:1 and 20:1 (BUN i n mg/dL/creatinin e in mg/dL) EGFR (HARDIK) (test 90 mL/min/1.73 ESTIMA YUMIKO GFR IS code = 1092) sq m NOT ACCURATE CREATININE CLEARANCE IN PREDICTING GLOMERULAR FILTRATION RATE . ESTIMATED GFR I S NOT APPLICABLE FOR DIALYSIS PATIEN TS. Filling Station Equipment Mechanic ID - DBVenous doppler leg, [id number] 15:52:54Ejection FractionSLEH ECHO HEARTLAB MKCKESSON CPACS Left [...] Study 08/28/2020 NEELAM Age 60 Visit Number [id number] Gender Female Accession Number [id number] Date of 1960 Referring Tricia Hernandez Room Number 2546 Physician Richard Rotating Field Assembler Jarad Mayberry Interpreting Vivek Benitez MD RVT [...] in cm/s ; Diameters are measured in [facility] Venous doppler leg, [id number] 15:52:54Ejection FractionSLE ECHO HEARTLAB MKCKESSON [facility] Left Impression1. There is partial echolucent [...] Study 08/28/2020 NEELAM Age 60 Visit Number [id number] Gender Female Accession Number [id number] Date of 1960 Referring Formerly [facility] Room Number 2546 Physician Elizabethri Rotating Field Assembler Jarad Mayberry Interpreting Vivek Benitez MD RVT [...] in cm/s ; Diameters are measured in [facility] Venous doppler leg, [id number] 15:52:54Ejection FractionSLE ECHO HEARTLAB MKCKESSON [facility] Left Impression1. There is partial echolucent [...] Study 08/28/2020 NEELAM Age 60 Visit Number [id number] Gender Female Accession Number [id number] Date of 1960 Referring Formerly [facility] Room Number 2546 Physician Elizabethri Rotating Field Assembler Jarad Mayberry Interpreting Vivek Benitez MD RVT [...] in cm/s ; Diameters are measured in [facility] SARS-COV2/RT-PCR ([facility])2020-08-28 12:32:00 Test Item Value Reference Range Interpretation Comments SARS-COV2/RT-PCR (test Negative Not Detected, Negative, code = 2255260) See external report for linked test SARS-COV-[address] [facility] (test code = 3854271) Negative result for this test determines that [...] 564(g) of the Act.Fact Sheet for Healthcare Providers:https://www.[employer].com/sites/default/files/product/documents/Fact_Shee q_OS_Offnddkpm_Mfms_TEQY-GpE-5.pdfFact Sheet for Healthcare Patients:https://www.[employer].com/sites/default/files/product/ documents/Irkf_Krroj_Skskihbi_Usox_SYXB-RtU-3.pdfPerforming Laboratory:[facility], [place] [address]WLKNWVKXRHK TIME/INR 2020-08-28 05:15:00 Test Item Value Reference Range Interpretation Comments PROTIME (BEAKER) 16.1 seconds 11.9-14.2 H (test code = 759) INR (BEAKER) (test 1.31 See_Comment [Automat ed message] code = 370) The system ZANY OX generated this result transmitted ref erence range: [...] 0-0 (BEAKER) (test code = 413) PROTHROMBIN TIME/[id number] 16:24:00 Test Item Value Reference Range Interpretation Comments PROTIME (BEAKER) 14.7 seconds 11.9-14.2 H (test code = 759) INR (BEAKER) (test 1.20 See_Comment [Automat ed message] code = 370) The system ZANY OX generated this result transmitted ref erence range: [...] 0-0 (BEAKER) (test code = 413) PROTHROMBIN TIME/[id number] 14:53:00 Test Item Value Reference Range Interpretation Comments PROTIME (BEAKER) 10.1 seconds 9.8-12.0 (test code = 759) INR (BEAKER) (test 0.94 See_Comment [Automat ed message] code = 370) The system ZANY OX generated this result transmitted ref erence range: [...] 0-0 (BEAKER) (test code = 413) PROTHROMBIN TIME/[id number] 19:23:00 Test Item Value Reference Range Interpretation Comments PROTIME (BEAKER) 15.0 seconds 11.9-14.2 H (test code = 759) INR (BEAKER) (test 1.20 See_Comment [Automat ed message] code = 370) The system ZANY OX generated this result transmitted ref erence range: [...] 0-1 PERCENT (BEAKER) (test code = 2801) [id number] 07:38:00 Test Item Value Reference Range Interpretation Comments PTT (test code = 62.8 See_Comment H [Automated message] 25014-3) The system ZANY OX generated this result transmitted ref erence range: 22.5 - 3 6.0 seconds. The reference range was not used to int erpret this result as normal/abnormal . Lab Interpretation (test Abnormal code = 98406-6) [facility] CampusaPTT2021-06-11 07:38:00 Test Item Value Reference Range Interpretation Comments PTT (test code = 62.8 See_Comment H [Automated message] 14269-8) The system ZANY OX generated this result transmitted ref erence range: 22.5 - 3 6.0 seconds. The reference range was not used to int erpret this result as normal/abnormal . Lab Interpretation (test Abnormal code = 85406-8) [facility] CampusaPTT2021-06-11 07:38:00 Test Item Value Reference Range Interpretation Comments PTT (test code = 62.8 See_Comment H [Automated message] 73581-5) The system ZANY OX generated this result transmitted ref erence range: 22.5 - 3 6.0 seconds. The reference range was not used to int erpret this result as normal/abnormal . Lab Interpretation (test Abnormal code = 81261-8) [facility] CampusAPTT2021-06-11 07:38:00 Test Item Value Reference Range Interpretation [...] WBC 0-0 (BEAKER) (test code = 413) [id number] 23:09:00 Test Item Value Reference Range Interpretation Comments PARTIAL THROMBOPLASTIN TIME 48.3 seconds 22.5-36.0 H (BEAKER) (test code = 760) [id number] 12:59:00 Test Item Value Reference Range Interpretation Comments PARTIAL THROMBOPLASTIN TIME 33.5 seconds 22.5-36.0 (BEAKER) (test code = 760) Basic Metabolic [id number] 06:56:00 Test Item Value Reference Range Interpretation Comments Sodium (test code = 140 meq/L 569-936 2711-2) Potassium (test 4.4 meq/L 3.5-5.1 code = 2823-3) Chloride (test code 100 meq/L 98-107 = 2075-0) CO2 (test code = 27 meq/L 2027-11) BUN (test code = 13 mg/dL 7-21 3094-0) Creatinine (test 0.81 mg/dL 0.57-1.25 code = 2160-0) Glucose (test code 101 mg/dL 70-105 = 2345-7) Calcium (test code 9.7 mg/dL 8.4-10.2 = 77961-6) EGFR (test code = 87 mL/min/1.[place] [address]-4) NOT ACCURATE CREATININE CLEARANCE IN PREDICTING GLOMERULAR FILTRATION RATE . ESTIMATED GFR I S NOT APPLICABLE FOR DIALYSIS PATIEN TSMaximiliano JESSICA (test code = Filling Station Equipment Mechanic ID - JESSICA) BALA Hernandez [facility] Metabolic [id number] 06:56:00 Test Item Value Reference Range Interpretation Comments Sodium (test code = 140 meq/L 578-817 2528-2) Potassium (test 4.4 meq/L 3.5-5.1 code = 2823-3) Chloride (test code 100 meq/L 98-107 = 2075-0) CO2 (test code = 27 meq/L -2027-11) BUN (test code = 13 mg/dL 7- 3094-0) Creatinine (test 0.81 mg/dL 0.57-1.25 code = 2160-0) Glucose (test code 101 mg/dL 70-105 = 2345-7) Calcium (test code 9.7 mg/dL 8.4-10.2 = 10525-7) EGFR (test code = 87 mL/min/1.[place] [address]-0) NOT ACCURATE CREATININE CLEARANCE IN PREDICTING GLOMERULAR FILTRATION RATE . ESTIMATED GFR I S NOT APPLICABLE FOR DIALYSIS PATIEN JESSICA (test code = Filling Station Equipment Mechanic ID - JESSICA) [facility] Metabolic [id number] 06:56:00 Test Item Value Reference Range Interpretation Comments Sodium (test code = 140 meq/L 105-781 1129-2) Potassium (test 4.4 meq/L 3.5-5.1 code = 2823-3) Chloride (test code 100 meq/L 98-107 = 2075-0) CO2 (test code = 27 meq/L 2027-11) BUN (test code = 13 mg/dL 7- 3094-0) Creatinine (test 0.81 mg/dL 0.57-1.25 code = 2160-0) Glucose (test code 101 mg/dL 70-105 = 2345-7) Calcium (test code 9.7 mg/dL 8.4-10.2 = 75776-0) EGFR (test code = 87 mL/min/1.73 [place] [address]-3) NOT ACCURATE CREATININE CLEARANCE IN PREDICTING GLOMERULAR FILTRATION RATE . ESTIMATED GFR I S NOT APPLICABLE FOR DIALYSIS PATIEN TSMaximiliano JESSICA (test code = Filling Station Equipment Mechanic ID - JESSICA) [facility] METABOLIC [id number] 06:56:00 Test Item Value Reference Range Interpretation [...] S NOT APPLICABLE FOR DIALYSIS PATIEN TS. Filling Station Equipment Mechanic ID - BALA MCBC (HEMOGRAM ONLY)2020-08-24 06:41:00 [...] WBC 0-0 (BEAKER) (test code = 413) [id number] 06:32:00 Test Item Value Reference Range Interpretation Comments PARTIAL THROMBOPLASTIN TIME 34.7 seconds 22.5-36.0 (BEAKER) (test code = 760) [id number] 22:03:00 Test Item Value Reference Range Interpretation Comments PARTIAL THROMBOPLASTIN TIME 36.0 seconds 22.5-36.0 (BEAKER) (test code = 760) [id number] 14:36:00 Test Item Value Reference Range Interpretation [...] (BEAKER) (test code = 413) BASIC METABOLIC [id number] 05:47:00 Test Item Value Reference Range Interpretation [...] S NOT APPLICABLE FOR DIALYSIS PATIEN TS. Filling Station Equipment Mechanic ID - BAL WCBC (HEMOGRAM ONLY)2020-08-23 05:19:00 [...] = 413) U/S, EXTREMITY, LOWER, LEFT (NON-VASCULAR) [id number] 15:15:00Please obtain biopsy of inguinal mass. Pending discharge Reason for exam:->Large left inguinal mass / lymphadenopathy [facility] 1960 [...] MDReport Verified Date/Time: 08/22/2020 15:15:14 Reading Location: [facility] C0[facility] Consult Reading Room US extremity non-vascular limited [id number] 15:15:00 Interface, External Ris In - 08/22/2020 [...] Muniz Verified Date/Time: 08/22/2020 15:15:14 Reading Location: [facility] C0[facility] Consult Reading Room Electronically signed by: Cassandra QUIJANO 08/22/2020 03:15 [facility]-vascular [facility] [id number] 15:15:00Interface, External Ris In - 08/22/2020 3:17 [...] Muniz Verified Date/Time: 08/22/2020 15:15:14 Reading Location: [facility] C013 Consult Reading Room Electronically signed by: Cassandra QUIJANO 08/22/2020 03:15 [facility]US extremity non- vascular limited [id number] 15:15:00Interface, External Ris In - 08/22/2020 3:17 [...] MDReport Verified Date/Time: 08/22/2020 15:15:14 Reading Location: [address] Consult Reading Room Electronically signed by: Cassandra QUIJANO 08/22/2020 03:15 [facility] HospitalBASIC METABOLIC [id number] 06:22:00 Test Item Value Reference Range Interpretation [...] S NOT APPLICABLE FOR DIALYSIS PATIEN TS. Filling Station Equipment Mechanic ID - BALA MC (HEMOGRAM ONLY)2020-08-22 05:57:00 [...] (BEAKER) (test code = 413) COMPREHENSIVE METABOLIC [id number] 07:02:00 Test Item Value Reference Range Interpretation [...] S NOT APPLICABLE FOR DIALYSIS PATIEN TS. Filling Station Equipment Mechanic ID - BALA MPROTHROMBIN TIME/[id number] 06:42:00 Test Item Value Reference Range Interpretation Comments PROTIME (BEAKER) 13.7 seconds 11.9-14.2 (test code = 759) INR (BEAKER) (test 1.08 See_Comment [Automat ed message] code = 370) The system ZANY OX generated this result transmitted ref erence range: [...] 413) RAD, SPINE, LUMBAR, 2 OR 3 [id number] 20:22:00Reason for exam:->low back pain[facility] 1960 [...] LEFT 2020-08-20 20:22:00Reason for exam:->knee pain, fall [facility]ENTERName: DANIEL [...] 2-3 VIEWS, LEFT, TO INCL PELVIS WHEN [id number] 20:22:00Reason for exam:->hip pain, fall [facility]ENTERName: DANIEL [...] Date/Time: 08/20/2020 20:22:11 XR hip 2 views [id number] 20:22:00Interface, External Ris In - 08/20/2020 8:24 [...] Prateek Fung MDReport Verified Date/Time: 08/20/2020 20:22:11 [facility] 2 views [id number] 20:22:00Interface, External Ris In - 08/20/2020 8:24 [...] Prateek Fung MDReport Verified Date/Time: 08/20/2020 20:22:11 [facility] hip 2 views left 2020-08-20 20:22:00Interface, [...] Prateek Fung MDReport Verified Date/Time: 08/20/2020 20:22:11 [facility] spine lumbar 2 or 3 [id number] 20:22:00Interface, External Ris In - 08/20/2020 8:24 [...] Signed: Prateek Fung Verified Date/Time: 08/20/2020 20:22:11 [facility] spine lumbar 2 or 3 [id number] 20:22:00Interface, External Ris In - 08/20/2020 8:24 [...] Prateek Fung MDReport Verified Date/Time: 08/20/2020 20:22:11 [facility] spine lumbar 2 or 3 [id number] 20:22:00Interface, External Ris In - 08/20/2020 8:24 [...] Prateek Fung MDReport Verified Date/Time: 08/20/2020 20:22:11 [facility] knee 3 views left 2020-08-20 20:22:00Interface, [...] Prateek Fung MDReport Verified Date/Time: 08/20/2020 20:22:11 [facility] knee 3 views [id number] 20:22:00Interface, External Ris In - 08/20/2020 8:24 [...] Prateek Fung MDReport Verified Date/Time: 08/20/2020 20:22:11 [facility] knee 3 views left 2020-08-20 20:22:00Interface, [...] Prateek Fung MDReport Verified Date/Time: 08/20/2020 20:22:11 [facility] HospitalLactate dehydrogenase (LDH)2020-08-20 15:47:00 Test Item Value Reference Range Interpretation Comments LDH (test code = 2532-0) 228 U/L 125-220 H JESSICA (test code = JESSICA) Filling Station Equipment Mechanic ID - DB Lab Interpretation (test Abnormal code = 28485-1) [facility] CampusMagnesium2021-06-06 15:47:00 Test Item Value Reference Range Interpretation Comments Magnesium (test code = 2.2 mg/dL 1.6-2.6 42478-7) JESSICA (test code = JESSICA) Filling Station Equipment Mechanic ID - DB Lab Interpretation (test Normal code = 53067-6) [facility] CampusPhosphorus2021-06-06 15:47:00 Test Item Value Reference Range Interpretation Comments Phosphorus (test code = 3.1 mg/dL 2.3-4.7 2777-1) JESSICA (test code = JESSCIA) Filling Station Equipment Mechanic ID - DB Lab Interpretation (test Normal code = 90677-9) [facility] CampusUric [id number] 15:47:00 Test Item Value Reference Range Interpretation Comments Uric Acid (test code = 5.1 mg/dL 2.6-7.2 3084-1) JESSICA (test code = JESSICA) Filling Station Equipment Mechanic ID - DB Lab Interpretation (test Normal code = 50993-0) [facility] CampusLactate dehydrogenase (LDH)2020-08-20 15:47:00 Test Item Value Reference Range Interpretation Comments LDH (test code = 2532-0) 228 U/L 125-220 H JESSICA (test code = JESSICA) Filling Station Equipment Mechanic ID - DB Lab Interpretation (test Abnormal code = 36002-0) [facility] CampusMagnesium2021-06-06 15:47:00 Test Item Value Reference Range Interpretation Comments Magnesium (test code = 2.2 mg/dL 1.6-2.6 81379-4) JESSICA (test code = JESSICA) Filling Station Equipment Mechanic ID - DB Lab Interpretation (test Normal code = 66882-6) [facility] CampusPhosphorus2021-06-06 15:47:00 Test Item Value Reference Range Interpretation Comments Phosphorus (test code = 3.1 mg/dL 2.3-4.7 2777-1) JESSICA (test code = JESSICA) Filling Station Equipment Mechanic ID - DB Lab Interpretation (test Normal code = 56307-5) [facility] [id number] 15:47:00 Test Item Value Reference Range Interpretation Comments Uric Acid (test code = 5.1 mg/dL 2.6-7.2 3084-1) JESSICA (test code = JESSICA) Filling Station Equipment Mechanic ID - DB Lab Interpretation (test Normal code = 05255-7) [facility] CampusLactate dehydrogenase (LDH)2020-08-20 15:47:00 Test Item Value Reference Range Interpretation Comments LDH (test code = 2532-0) 228 U/L 125-220 H JESSICA (test code = JESSICA) Filling Station Equipment Mechanic ID - DB Lab Interpretation (test Abnormal code = 36975-1) [facility] CampusMagnesium2021-06-06 15:47:00 Test Item Value Reference Range Interpretation Comments Magnesium (test code = 2.2 mg/dL 1.6-2.6 59063-8) JESSICA (test code = JESSICA) Filling Station Equipment Mechanic ID - DB Lab Interpretation (test Normal code = 23561-4) [facility] CampusPhosphorus2021-06-06 15:47:00 Test Item Value Reference Range Interpretation Comments Phosphorus (test code = 3.1 mg/dL 2.3-4.7 2777-1) JESSICA (test code = JESSICA) Filling Station Equipment Mechanic ID - DB Lab Interpretation (test Normal code = 76150-3) [facility] [id number] 15:47:00 Test Item Value Reference Range Interpretation Comments Uric Acid (test code = 5.1 mg/dL 2.6-7.2 3084-1) JESSICA (test code = JESSICA) Filling Station Equipment Mechanic ID - DB Lab Interpretation (test Normal code = 30975-5) [facility] CampusCOMPREHENSIVE METABOLIC [id number] 15:47:00 Test Item Value Reference Range Interpretation [...] S NOT APPLICABLE FOR DIALYSIS PATIEN TS. Filling Station Equipment Mechanic ID - [id number] 15:47:00 Test Item Value Reference Range Interpretation Comments MAGNESIUM (BEAKER) (test code = 2.2 mg/dL 1.6-2.6 627) Filling Station Equipment Mechanic ID - [id number] 15:47:00 Test Item Value Reference Range Interpretation Comments PHOSPHORUS (BEAKER) (test code = 3.1 mg/dL 2.3-4.7 604) Filling Station Equipment Mechanic ID - DBURIC [id number] 15:47:00 Test Item Value Reference Range Interpretation Comments URIC ACID (BEAKER) (test code = 5.1 mg/dL 2.6-7.2 773) Filling Station Equipment Mechanic ID - DBLACTATE DEHYDROGENASE (LDH)2020-08-20 15:47:00 Test Item Value Reference Range Interpretation Comments LACTATE DEHYDROGENASE (BEAKER) (test 228 U/L 125-220 H code = 635) Filling Station Equipment Mechanic ID - DBCBC W/PLT COUNT & AUTO [id number] 15:26:00 Test Item Value Reference Range Interpretation [...] (test code = 2801) AFB CULTURE + [id number] 17:40:00 Test Item Value Reference Range Interpretation Comments CULTURE (BEAKER) (test No acid-fast bacilli code = 1095) isolated in 42 days AFB SMEAR (BEAKER) No acid fast bacilli (test code = 994) seen AFB CULTURE + [id number] 16:47:00 Test Item Value Reference Range Interpretation Comments CULTURE (BEAKER) (test No acid-fast bacilli code = 1095) isolated in 42 days AFB SMEAR (BEAKER) No acid fast bacilli (test code = 994) seen FUNGUS CULTURE + [id number] 17:06:00 Test Item Value Reference Range Interpretation Comments CULTURE (BEAKER) (test No fungus isolated in code = 1095) 28 days FUNGUS SMEAR (BEAKER) No fungi seen (test code = 1406) FUNGUS CULTURE + [id number] 20:59:00 Test Item Value Reference Range Interpretation Comments CULTURE (BEAKER) (test No fungus isolated in code = 1095) 28 days FUNGUS SMEAR (BEAKER) No fungi seen (test code = 1406) POCT-GLUCOSE [id number] 17:00:00 Test Item Value Reference Range Interpretation Comments POC-GLUCOSE METER 193 mg/dL 70-110 H TESTED AT [facility] [address] (BEAKER) (test code [facility] = 1538) [place] [address] POCT-GLUCOSE [id number] 11:50:00 Test Item Value Reference Range Interpretation Comments POC-GLUCOSE METER 185 mg/dL 70-110 H TESTED AT [facility] [address] (BEAKER) (test code [facility] = 1538) [place] [address] CBC W/PLT COUNT & AUTO [id number] 09:22:00 Test Item Value Reference Range Interpretation [...] (BEAKER) (test code = 2801) BASIC METABOLIC [id number] 09:21:00 Test Item Value Reference Range Interpretation [...] NOT APPLICABLE FOR DIALYSIS PATIEN TS. C-REACTIVE [id number] 09:21:00 Test Item Value Reference Range Interpretation Comments C-REACTIVE PROTEIN (BEAKER) (test 2.31 mg/dL 0.00-0.50 H code = 676) HEPATIC FUNCTION [id number] 09:20:00 Test Item Value Reference Range Interpretation [...] code = 47 U/L 6-50 347) POCT-GLUCOSE [id number] 06:53:00 Test Item Value Reference Range Interpretation Comments POC-GLUCOSE METER 102 mg/dL 70-110 TESTED AT [facility] [address] (BEAKER) (test code HeyAnita [facility] = 1538) [place] [address] POCT-GLUCOSE [id number] 21:32:00 Test Item Value Reference Range Interpretation Comments POC-GLUCOSE METER 212 mg/dL 70-110 H TESTED AT [facility] [address] (BEAKER) (test code HeyAnita [facility] = 1538) [place] [address] POCT-GLUCOSE [id number] 16:26:00 Test Item Value Reference Range Interpretation Comments POC-GLUCOSE METER 170 mg/dL 70-110 H TESTED AT [facility] [address] (BEAKER) (test code HeyAnita [facility] = 1538) [place] [address] POCT-GLUCOSE [id number] 05:53:00 Test Item Value Reference Range Interpretation Comments POC-GLUCOSE METER 90 mg/dL 70-110 TESTED AT [facility] [address] ([facility]) (test code = LUCIA [facility] 1538) [place] [address] POCT-GLUCOSE [id number] 21:52:00 Test Item Value Reference Range Interpretation Comments POC-GLUCOSE METER 130 mg/dL 70-110 H TESTED AT [facility] [address] ([facility]) (test code LUCIA [facility] = 1538) [place] [address] POCT-GLUCOSE [id number] 17:16:00 Test Item Value Reference Range Interpretation Comments POC-GLUCOSE METER 177 mg/dL 70-110 H TESTED AT [facility] [address] ([facility]) (test code LUCIA [facility] = 1538) [place] [address] [id number] 16:02:00 Test Item Value Reference Range Interpretation Comments POTASSIUM ([facility]) (test code = 3.9 meq/L 3.5-5.5 379) POCT-GLUCOSE [id number] 12:10:00 Test Item Value Reference Range Interpretation Comments POC-GLUCOSE METER 176 mg/dL 70-110 H TESTED AT [facility] [address] ([facility]) (test code LUCIA [facility] = 1538) [place] [address] POCT-GLUCOSE [id number] 05:57:00 Test Item Value Reference Range Interpretation Comments POC-GLUCOSE METER 113 mg/dL 70-110 H TESTED AT [facility] [address] ([facility]) (test code LUCIA [facility] = 1538) [place] [address] POCT-GLUCOSE [id number] 21:53:00 Test Item Value Reference Range Interpretation Comments POC-GLUCOSE METER 160 mg/dL 70-110 H TESTED AT [facility] [address] ([facility]) (test code LUCIA [facility] = 1538) [place] [address] POCT-GLUCOSE [id number] 16:49:00 Test Item Value Reference Range Interpretation Comments POC-GLUCOSE METER 158 mg/dL 70-110 H TESTED AT [facility] [address] ([facility]) (test code LUCIA [facility] = 1538) [place] [address] POCT-GLUCOSE [id number] 12:14:00 Test Item Value Reference Range Interpretation Comments POC-GLUCOSE METER 162 mg/dL 70-110 H TESTED AT [facility] [address] (BEAKER) (test code [facility] = 1538) [place] [address] BASIC METABOLIC [id number] 04:57:00 Test Item Value Reference Range Interpretation [...] PATIEN TS. CBC W/PLT COUNT & AUTO [id number] 04:28:00 Test Item Value Reference Range Interpretation [...] PERCENT (BEAKER) (test code = 2801) POCT-GLUCOSE [id number] 20:44:00 Test Item Value Reference Range Interpretation Comments POC-GLUCOSE METER 168 mg/dL 70-110 H TESTED AT [facility] [address] (BEAKER) (test code [facility] = 1538) [place] [address] POCT-GLUCOSE [id number] 16:10:00 Test Item Value Reference Range Interpretation Comments POC-GLUCOSE METER 228 mg/dL 70-110 H TESTED AT [facility] [address] (BEAKER) (test code [facility] = 1538) [place] [address] POCT-GLUCOSE [id number] 13:15:00 Test Item Value Reference Range Interpretation Comments POC-GLUCOSE METER 182 mg/dL 70-110 H TESTED AT [facility] [address] (BEAKER) (test code [facility] = 1538) [place] [address] POCT-GLUCOSE [id number] 06:57:00 Test Item Value Reference Range Interpretation Comments POC-GLUCOSE METER 153 mg/dL 70-110 H TESTED AT [facility] [address] ([facility]) (test code LUCIA [facility] = 1538) [place] [address] POCT-GLUCOSE [id number] 21:27:00 Test Item Value Reference Range Interpretation Comments POC-GLUCOSE METER 146 mg/dL 70-110 H TESTED AT [facility] [address] ([facility]) (test code LUCIA [facility] = 1538) [place] [address] POCT-GLUCOSE [id number] 17:17:00 Test Item Value Reference Range Interpretation Comments POC-GLUCOSE METER 134 mg/dL 70-110 H TESTED AT [facility] [address] ([facility]) (test code LUCIA [facility] = 1538) [place] [address] POCT-GLUCOSE [id number] 13:49:00 Test Item Value Reference Range Interpretation Comments POC-GLUCOSE METER 177 mg/dL 70-110 H TESTED AT [facility] [address] ([facility]) (test code LUCIA [facility] = 1538) [place] [address] POCT-GLUCOSE [id number] 05:34:00 Test Item Value Reference Range Interpretation Comments POC-GLUCOSE METER 118 mg/dL 70-110 H TESTED AT [facility] [address] ([facility]) (test code LUCIA [facility] = 1538) [place] [address] POCT-GLUCOSE [id number] 21:14:00 Test Item Value Reference Range Interpretation Comments POC-GLUCOSE METER 149 mg/dL 70-110 H TESTED AT [facility] [address] ([facility]) (test code LUCIA [facility] = 1538) [place] [address] POCT-GLUCOSE [id number] 17:44:00 Test Item Value Reference Range Interpretation Comments POC-GLUCOSE METER 132 mg/dL 70-110 H TESTED AT [facility] [address] ([facility]) (test code [employer] [facility] = 1538) [place] [address] POCT-GLUCOSE [id number] 12:21:00 Test Item Value Reference Range Interpretation Comments POC-GLUCOSE METER 168 mg/dL 70-110 H TESTED AT [facility] [address] (BEAKER) ([facility] [place] [address] [id number] 05:19:00 Test Item Value Reference Range Interpretation Comments PARTIAL THROMBOPLASTIN TIME 84.3 seconds 23.2-36.1 H (BEAKER) (test code = 760) POCT-GLUCOSE [id number] 20:50:00 Test Item Value Reference Range Interpretation Comments POC-GLUCOSE METER 147 mg/dL 70-110 H TESTED AT [facility] [address] (BEAKER) (test [facility] [place] [address] POCT-GLUCOSE [id number] 17:19:00 Test Item Value Reference Range Interpretation Comments POC-GLUCOSE METER 238 mg/dL 70-110 H TESTED AT [facility] [address] ([facility]) (test code [facility] [place] [address] [id number] 15:09:00 Test Item Value Reference Range Interpretation Comments PARTIAL THROMBOPLASTIN TIME 74.8 seconds 23.2-36.1 H (BEAKER) (test code = 760) POCT-GLUCOSE [id number] 11:57:00 Test Item Value Reference Range Interpretation Comments POC-GLUCOSE METER 146 mg/dL 70-110 H TESTED AT [facility] [address] ([facility]) (test code [facility] = 1538) [place] [address] POCT-GLUCOSE [id number] 05:37:00 Test Item Value Reference Range Interpretation Comments POC-GLUCOSE METER 139 mg/dL 70-110 H TESTED AT [facility] [address] ([facility]) (test code [facility] = 1538) [place] [address] BASIC METABOLIC [id number] 04:04:00 Test Item Value Reference Range Interpretation [...] S NOT APPLICABLE FOR DIALYSIS PATIEN TS. [id number] 04:02:00 Test Item Value Reference Range Interpretation Comments PARTIAL THROMBOPLASTIN TIME 76.5 seconds 23.2-36.1 H (BEAKER) (test code = 760) CBC W/PLT COUNT & AUTO [id number] 03:41:00 Test Item Value Reference Range Interpretation [...] PERCENT (BEAKER) (test code = 2801) POCT-GLUCOSE [id number] 22:12:00 Test Item Value Reference Range Interpretation Comments POC-GLUCOSE METER 247 mg/dL 70-110 H TESTED AT [facility] [address] (BEAKER) (test code [facility] = 1538) [place] [address] [id number] 21:11:00 Test Item Value Reference Range Interpretation Comments PARTIAL THROMBOPLASTIN TIME 62.4 seconds 23.2-36.1 H (BEAKER) (test code = 760) [id number] 12:45:00 Test Item Value Reference Range Interpretation Comments PARTIAL THROMBOPLASTIN TIME 101.2 seconds 23.2-36.1 H (BEAKER) (test code = 760) POCT-GLUCOSE [id number] 11:48:00 Test Item Value Reference Range Interpretation Comments POC-GLUCOSE METER 259 mg/dL 70-110 H TESTED AT [facility] [address] (BEAKER) (test code [facility] = 1538) [place] [address] POCT-GLUCOSE [id number] 05:38:00 Test Item Value Reference Range Interpretation Comments POC-GLUCOSE METER 121 mg/dL 70-110 H TESTED AT [facility] [address] (BEAKER) (test code [facility] = 1538) [place] [address] [id number] 05:33:00 Test Item Value Reference Range Interpretation Comments PARTIAL THROMBOPLASTIN TIME 108.5 seconds 23.2-36.1 H (BEAKER) (test code = 760) POCT-GLUCOSE [id number] 20:59:00 Test Item Value Reference Range Interpretation Comments POC-GLUCOSE METER 197 mg/dL 70-110 H TESTED AT [facility] [address] (BEAKER) (test code [facility] = 1538) [place] [address] POCT-GLUCOSE [id number] 16:47:00 Test Item Value Reference Range Interpretation Comments POC-GLUCOSE METER 150 mg/dL 70-110 H TESTED AT [facility] [address] (BEAKER) (test code [facility] = 1538) [place] [address] [id number] 15:21:00 Test Item Value Reference Range Interpretation Comments PARTIAL THROMBOPLASTIN TIME 79.9 seconds 23.2-36.1 H (BEAKER) (test code = 760) POCT-GLUCOSE [id number] 12:52:00 Test Item Value Reference Range Interpretation Comments POC-GLUCOSE METER 207 mg/dL 70-110 H TESTED AT [facility] [address] (BEAKER) (test code [facility] = 1538) [place] [address] [id number] 09:17:00 Test Item Value Reference Range Interpretation Comments PARTIAL THROMBOPLASTIN TIME 95.7 seconds 23.2-36.1 H (BEAKER) (test code = 760) BASIC METABOLIC [id number] 02:36:00 Test Item Value Reference Range Interpretation [...] I S NOT APPLICABLE FOR DIALYSIS PATIEN [id number] 02:26:00 Test Item Value Reference Range Interpretation Comments PARTIAL THROMBOPLASTIN TIME 104.6 seconds 23.2-36.1 H (BEAKER) (test code = 760) CBC W/PLT COUNT & AUTO [id number] 02:18:00 Test Item Value Reference Range Interpretation [...] PERCENT (BEAKER) (test code = 2801) POCT-GLUCOSE [id number] 22:17:00 Test Item Value Reference Range Interpretation Comments POC-GLUCOSE METER 211 mg/dL 70-110 H TESTED AT [facility] [address] (BEAKER) (test code [facility] = 1538) [place] [address] [id number] 20:16:00 Test Item Value Reference Range Interpretation Comments PARTIAL THROMBOPLASTIN TIME 107.2 seconds 23.2-36.1 H (BEAKER) (test code = 760) POCT-GLUCOSE [id number] 16:24:00 Test Item Value Reference Range Interpretation Comments POC-GLUCOSE METER 167 mg/dL 70-110 H TESTED AT [facility] [address] (BEAKER) (test code [facility] = 1538) [place] [address] [id number] 14:17:00 Test Item Value Reference Range Interpretation Comments PARTIAL THROMBOPLASTIN TIME 96.3 seconds 23.2-36.1 H (BEAKER) (test code = 760) POCT-GLUCOSE [id number] 11:40:00 Test Item Value Reference Range Interpretation Comments POC-GLUCOSE METER 190 mg/dL 70-110 H TESTED AT [facility] [address] (BEAKER) (test code [facility] = 1538) [place] [address] [id number] 07:52:00 Test Item Value Reference Range Interpretation Comments PARTIAL THROMBOPLASTIN TIME 58.0 seconds 23.2-36.1 H (BEAKER) (test code = 760) BASIC METABOLIC [id number] 06:09:00 Test Item Value Reference Range Interpretation [...] S NOT APPLICABLE FOR DIALYSIS PATIEN TS. [id number] 05:53:00 Test Item Value Reference Range Interpretation Comments PARTIAL THROMBOPLASTIN TIME 138.1 seconds 23.2-36.1 H (BEAKER) (test code = 760) CBC W/PLT COUNT & AUTO [id number] 05:45:00 Test Item Value Reference Range Interpretation [...] 756) MEAN PLATELET VOLUME 9.2 fL 6.0-11.5 MPV-Christian roximately (BEAKER) (test code = 20% po [...] GRANULOCYTES-RELATIVE PERCENT (BEAKER) (test code = 2801) [id number] 23:56:00 Test Item Value Reference Range Interpretation Comments PARTIAL THROMBOPLASTIN TIME 96.6 seconds 23.2-36.1 H (BEAKER) (test code = 760) POCT-GLUCOSE [id number] 21:22:00 Test Item Value Reference Range Interpretation Comments POC-GLUCOSE METER 160 mg/dL 70-110 H TESTED AT [facility] [address] (BEAKER) (test code [facility] = 1538) [place] [address] POCT-GLUCOSE [id number] 17:27:00 Test Item Value Reference Range Interpretation Comments POC-GLUCOSE METER 151 mg/dL 70-110 H TESTED AT [facility] [address] (BEAKER) (test code [facility] = 1538) [place] [address] [id number] 16:40:00 Test Item Value Reference Range Interpretation Comments PARTIAL THROMBOPLASTIN TIME 40.0 seconds 23.2-36.1 H (BEAKER) (test code = 760) POCT-GLUCOSE [id number] 13:43:00 Test Item Value Reference Range Interpretation Comments POC-GLUCOSE METER 164 mg/dL 70-110 H TESTED AT [facility] [address] (BEAKER) (test code [facility] = 1538) [place] [address] [id number] 13:34:00 Test Item Value Reference Range Interpretation Comments PARTIAL THROMBOPLASTIN TIME 141.6 seconds 23.2-36.1 H (BEAKER) (test code = 760) OCCULT BLOOD, [id number] 13:20:00 Test Item Value Reference Range Interpretation Comments FECAL OCCULT BLOOD (BEAKER) (test Negative Negative code = 618) BASIC METABOLIC [id number] 12:13:00 Test Item Value Reference Range Interpretation [...] APPLICABLE FOR DIALYSIS PATIEN TS. HEPATIC FUNCTION [id number] 12:13:00 Test Item Value Reference Range Interpretation [...] 6-50 347) CBC W/PLT COUNT & AUTO [id number] 11:47:00 Test Item Value Reference Range Interpretation [...] GRANULOCYTES-RELATIVE PERCENT (BEAKER) (test code = 2801) [id number] 06:33:00 Test Item Value Reference Range Interpretation Comments PARTIAL THROMBOPLASTIN TIME 102.3 seconds 23.2-36.1 H (BEAKER) (test code = 760) POCT-GLUCOSE [id number] 05:47:00 Test Item Value Reference Range Interpretation Comments POC-GLUCOSE METER 151 mg/dL 70-110 H TESTED AT [facility] [address] (BEAKER) (test code [facility] = 1538) [place] [address] BASIC METABOLIC [id number] 01:16:00 Test Item Value Reference Range Interpretation [...] 358) GLUCOSE RANDOM 154 mg/dL 70-110 H ([facility]) (test code = 652) CALCIUM (BEAKER) 8.1 mg/dL 8.5-10.5 L (test code = 697) EGFR (BEAKER) (test 106 mL/min/1.73 ESTIM ATED GFR IS code = 1092) sq m NOT ACCURATE CREATININE CLEARANCE IN PREDICTING GLOMERULAR FILTRATION RATE . ESTIMATED GFR I S NOT APPLICABLE FOR DIALYSIS PATIEN TS. [id number] 01:06:00 Test Item Value Reference Range Interpretation Comments PARTIAL THROMBOPLASTIN TIME 46.8 seconds 23.2-36.1 H ([facility]) (test code = 760) [id number] 23:18:00 Test Item Value Reference Range Interpretation Comments PARTIAL THROMBOPLASTIN TIME 177.9 seconds 23.2-36.1 HH ([facility]) (test code = 760) POCT-GLUCOSE [id number] 22:05:00 Test Item Value Reference Range Interpretation Comments POC-GLUCOSE METER 204 mg/dL 70-110 H TESTED AT [facility] [address] ([facility]) (test code [facility] = 1538) [place] [address] [id number] 16:35:00 Test Item Value Reference Range Interpretation Comments PARTIAL THROMBOPLASTIN TIME 47.9 seconds 23.2-36.1 H ([facility]) (test code = 760) POCT-GLUCOSE [id number] 16:33:00 Test Item Value Reference Range Interpretation Comments POC-GLUCOSE METER 167 mg/dL 70-110 H TESTED AT [facility] [address] ([facility]) (test code [facility] = 1538) [place] [address] [id number] 15:11:00 Test Item Value Reference Range Interpretation Comments PARTIAL THROMBOPLASTIN TIME 198.7 seconds 23.2-36.1 HH ([facility]) (test code = 760) POCT-GLUCOSE [id number] 12:08:00 Test Item Value Reference Range Interpretation Comments POC-GLUCOSE METER 166 mg/dL 70-110 H TESTED AT [facility] [address] ([facility]) (test code [facility] = 1538) [place] [address] [id number] 07:27:00 Test Item Value Reference Range Interpretation Comments PARTIAL THROMBOPLASTIN TIME 65.6 seconds 23.2-36.1 H (BEAKER) (test code = 760) [id number] 05:59:00 Test Item Value Reference Range Interpretation Comments PARTIAL THROMBOPLASTIN TIME 156.1 seconds 23.2-36.1 HH (BEAKER) (test code = 760) BASIC METABOLIC [id number] 05:54:00 Test Item Value Reference Range Interpretation [...] NOT APPLICABLE FOR DIALYSIS PATIEN TS. POCT-GLUCOSE [id number] 05:45:00 Test Item Value Reference Range Interpretation Comments POC-GLUCOSE METER 145 mg/dL 70-110 H TESTED AT [facility] [address] (BEAKER) (test code [facility] = 1538) [place] [address] CBC W/PLT COUNT & AUTO [id number] 05:36:00 Test Item Value Reference Range Interpretation [...] PERCENT (BEAKER) (test code = 2801) POCT-GLUCOSE [id number] 20:29:00 Test Item Value Reference Range Interpretation Comments POC-GLUCOSE METER 128 mg/dL 70-110 H TESTED AT [facility] [address] (BEAKER) (test code [facility] = 1538) [place] [address] POCT-GLUCOSE [id number] 16:58:00 Test Item Value Reference Range Interpretation Comments POC-GLUCOSE METER 160 mg/dL 70-110 H TESTED AT [facility] [address] (BEAKER) (test code [facility] = 1538) [place] [address] POCT-GLUCOSE [id number] 11:58:00 Test Item Value Reference Range Interpretation Comments POC-GLUCOSE METER 163 mg/dL 70-110 H TESTED AT [facility] [address] (BEAKER) (test code [facility] = 1538) [place] [address] [id number] 05:25:00 Test Item Value Reference Range Interpretation Comments PARTIAL THROMBOPLASTIN TIME 79.6 seconds 23.2-36.1 H (BEAKER) (test code = 760) CBC W/PLT COUNT & AUTO [id number] 05:18:00 Test Item Value Reference Range Interpretation [...] GRANULOCYTES-RELATIVE PERCENT (BEAKER) (test code = 2801) [id number] 21:47:00 Test Item Value Reference Range Interpretation Comments PARTIAL THROMBOPLASTIN TIME 85.4 seconds 23.2-36.1 H (BEAKER) (test code = 760) POCT-GLUCOSE [id number] 16:24:00 Test Item Value Reference Range Interpretation Comments POC-GLUCOSE METER 189 mg/dL 70-110 H TESTED AT [facility] [address] (BEAKER) (test code [facility] = 1538) [place] [address] [id number] 13:02:00 Test Item Value Reference Range Interpretation Comments PARTIAL THROMBOPLASTIN TIME 51.8 seconds 23.2-36.1 H (BEAKER) (test code = 760) POCT-GLUCOSE [id number] 11:41:00 Test Item Value Reference Range Interpretation Comments POC-GLUCOSE METER 169 mg/dL 70-110 H TESTED AT [facility] [address] (BEAKER) (test code [facility] = 1538) [place] [address] VITAMIN D, [id number] 08:15:00 Test Item Value Reference Range Interpretation Comments VITAMIN D 25-OH (BEAKER) (test code 5.4 ng/mL 6.6-49.9 L = 2764) Effective 12/25/2016: Reference Range ChangeNew: 6.6-49.9 ng/mL Previous: 13.0-47.8 ng/mLRecommended Vitamin D Target Range: 30.0-40.0 ng/mLPOCT-GLUCOSE [id number] 06:20:00 Test Item Value Reference Range Interpretation Comments POC-GLUCOSE METER 158 mg/dL 70-110 H TESTED AT [facility] [address] ([facility]) (test code [facility] = 1538) [place] [address] HEPATIC FUNCTION [id number] 05:45:00 Test Item Value Reference Range Interpretation Comments TOTAL PROTEIN (BEAKER) 6.5 gm/dL 6.0-8.5 Speci men markedly (test code = 770) hemolyzed ALBUMIN (BEAKER) (test 1.8 g/dL 3.5-5.0 L Speci men markedly code = 1145) hemolyzed BILIRUBIN TOTAL 1.2 mg/dL 0.1-1.3 Specimen michael may ([facility]) (test code = hemoly zed 377) BILIRUBIN DIRECT 0.1 mg/dL 0.0-0.5 Specimen abeba browning (BEAKER) (test code = hemoly zed 706) ALKALINE PHOSPHATASE 142 U/L 30-115 H (BEAKER) (test code = 346) AST (SGOT) (BEAKER) 49 U/L 5-40 H Specimen markedly (test code = 353) hemolyzed ALT (SGPT) (BEAKER) 28 U/L 6-50 Specimen markedly (test code = 347) hemolyzed [id number] 05:30:00 Test Item Value Reference Range Interpretation Comments PARTIAL THROMBOPLASTIN TIME 63.3 seconds 23.2-36.1 H (AKER) (test code = 760) Prior to initiating heparinCBC W/PLT COUNT & AUTO [id number] 05:23:00 Test Item Value Reference Range Interpretation [...] GRANULOCYTES-RELATIVE PERCENT (BEAKER) (test code = 2801) [id number] 00:59:00 Test Item Value Reference Range Interpretation Comments PARTIAL THROMBOPLASTIN TIME 62.3 seconds 23.2-36.1 H (BEAKER) (test code = 760) POCT-GLUCOSE [id number] 21:34:00 Test Item Value Reference Range Interpretation Comments POC-GLUCOSE METER 196 mg/dL 70-110 H TESTED AT [facility] [address] (BEAKER) (test code [facility] = 1538) [place] [address] [id number] 18:14:00 Test Item Value Reference Range Interpretation Comments PARTIAL THROMBOPLASTIN TIME 82.3 seconds 23.2-36.1 H (BEAKER) (test code = 760) POCT-GLUCOSE [id number] 17:01:00 Test Item Value Reference Range Interpretation Comments POC-GLUCOSE METER 192 mg/dL 70-110 H TESTED AT [facility] [address] (BEAKER) (test code [facility] = 1538) [place] [address] POCT-GLUCOSE [id number] 13:29:00 Test Item Value Reference Range Interpretation Comments POC-GLUCOSE METER 207 mg/dL 70-110 H TESTED AT [facility] [address] (BEAKER) (test code [facility] = 1538) [place] [address] [id number] 12:48:00 Test Item Value Reference Range Interpretation Comments PARTIAL THROMBOPLASTIN TIME 63.3 seconds 23.2-36.1 H (BEAKER) (test code = 760) CBC W/PLT COUNT & AUTO [id number] 12:25:00 Test Item Value Reference Range Interpretation [...] PERCENT (BEAKER) (test code = 2801) POCT-GLUCOSE [id number] 06:40:00 Test Item Value Reference Range Interpretation Comments POC-GLUCOSE METER 166 mg/dL 70-[place] [address] [address] (BEAKER) (test code [facility] = 1538) [place] [address] BUN AND [id number] 06:07:00 Test Item Value Reference Range Interpretation [...] 12 noon Amikacin Blood level draw. Thank [id number] 05:48:00 Test Item Value Reference Range Interpretation Comments PARTIAL THROMBOPLASTIN TIME 60.0 seconds 23.2-36.1 H ([facility]) (test code = 760) ANTI-NUCLEAR ANTIBODY (TAMMI)2017-11-20 00:24:00 Test Item Value Reference Range Interpretation Comments ANTI-NUCLEAR ANTIBODY (TAMMI) ([facility]) Negative Negative (test code = 418) Test performed by IFA method.Test performed by IFA method.[id number] 23:01:00 Test Item Value Reference Range Interpretation Comments PARTIAL THROMBOPLASTIN TIME 58.3 seconds 23.2-36.1 H ([facility]) (test code = 760) POCT-GLUCOSE [id number] 21:22:00 Test Item Value Reference Range Interpretation Comments POC-GLUCOSE METER 171 mg/dL 70-110 H TESTED AT [facility] [address] ([facility]) (test code [facility] = 1538) [place] [address] POCT-GLUCOSE [id number] 16:54:00 Test Item Value Reference Range Interpretation Comments POC-GLUCOSE METER 135 mg/dL 70-110 H TESTED AT [facility] [address] ([facility]) (test code [facility] = 1538) [place] [address] PERIPHERAL BLOOD SMEAR - PATHOLOGIST [id number] 15:35:00 Test Item Value Reference Range Interpretation Comments PERIPHERAL SMR REVIEW Neutrophilic ([facility]) (test code = leukocytosis with 2640) increased band forms and unremarkable WBC morphology. Normocytic anemia with unremarkable RBCs. Platelets unremarkable. No dysmorphic or blast forms seen. [id number] Nazario Becker M.D. ([facility]) (test code = (electronic signature) 2849) (MANUAL DIFFERENTIAL)2017-11-19 15:31:00 Test Item Value Reference Range Interpretation Comments NEUTROPHILS - REL (DIFF) ([facility]) 77 % (test code = [...] (BEAKER) (test code = 1+ few 480) [id number] 15:21:00 Test Item Value Reference Range Interpretation Comments PARTIAL THROMBOPLASTIN TIME 39.3 seconds 23.2-36.1 H (BEAKER) (test code = 760) POCT-GLUCOSE [id number] 13:08:00 Test Item Value Reference Range Interpretation Comments POC-GLUCOSE METER 140 mg/dL 70-110 H TESTED AT [facility] [address] (BEAKER) (test code [facility] = 1538) [place] [address] CBC W/PLT COUNT & AUTO [id number] 09:33:00 Test Item Value Reference Range Interpretation [...] (BEAKER) (test code = 413) BUN AND [id number] 08:45:00 Test Item Value Reference Range Interpretation [...] 12 noon Amikacin Blood level draw. Thank [id number] 08:27:00 Test Item Value Reference Range Interpretation Comments PARTIAL THROMBOPLASTIN TIME 29.5 seconds 23.2-36.1 (BEAKER) (test code = 760) POCT-GLUCOSE [id number] 04:48:00 Test Item Value Reference Range Interpretation Comments POC-GLUCOSE METER 142 mg/dL 70-110 H TESTED AT [facility] [address] ([facility]) (test code [facility] = 1538) [place] [address] RHEUMATOID FACTOR AB, REFLEX TO [id number] 01:10:00 Test Item Value Reference Range Interpretation Comments RHEUMATOID FACTOR ([facility]) (test Negative code = 573) [id number] 00:56:00 Test Item Value Reference Range Interpretation [...] patients with mechanical heart valves.VENOUS DOPPLER LEGS, [id number] 22:05:00Reason for exam:->leukocytosis persistentFINAL REPORT CLINICAL HISTORY: [...] MDReport Verified Date/Time: 11/18/2017 22:05:25 Reading Location: [address] Reading Room POCT-GLUCOSE [id number] 20:56:00 Test Item Value Reference Range Interpretation Comments POC-GLUCOSE METER 111 mg/dL 70-110 H TESTED AT [facility] [address] ([facility]) (test code [facility] = 1538) [place] [address] AMIKACIN LEVEL, [id number] 17:26:00 Test Item Value Reference Range Interpretation Comments AMIKACIN, TROUGH ([facility]) (test 10.3 ug/mL 4.0-8.0 HH code = 1830) Therapeutic Range (ug/mL)Peak: 25.0-35.0Trough: 4.0-8.0 Toxic: >35.0VENOUS DOPPLER ARMS, [id number] 16:59:00Reason for exam:->swelling right handAddendum BeginsREPORT STATUS:A Addendum:A left-sided PICC is visualized. End of addendum. Signed: Dangelo Proctoreport Verified Date/Time: 11/18/2017 16:59:45 Reading Location: [facility] Radiology Reading RoomAddendum EndsFINAL REPORT [...] Proctoreport Verified Date/Time: 11/18/2017 15:36:41 [facility] POCT-GLUCOSE [id number] 16:58:00 Test Item Value Reference Range Interpretation Comments POC-GLUCOSE METER 100 mg/dL 70-110 TESTED AT [facility] [address] ([facility]) (test code [facility] = 1538) [place] [address] POCT-GLUCOSE [id number] 11:30:00 Test Item Value Reference Range Interpretation Comments POC-GLUCOSE METER 119 mg/dL 70-110 H TESTED AT [facility] [address] (BEAKER) (test code [facility] = 1538) [place] [address] HEPATITIS B SURFACE [id number] 11:18:00 Test Item Value Reference Range Interpretation Comments HEPATITIS B SURFACE ANTIBODY 436.5 mIU/mL <8.0 H (BEAKER) (test code = 647) HEPATITIS C [id number] 11:18:00 Test Item Value Reference Range Interpretation Comments HEPATITIS C ANTIBODY (BEAKER) Nonreactive Nonreactive (test code = 367) AMIKACIN LEVEL, [id number] 11:03:00 Test Item Value Reference Range Interpretation Comments AMIKACIN, PEAK (BEAKER) (test code 26.0 ug/mL 25.0-35.0 = 1831) Therapeutic Range (ug/mL)Peak: 25.0-35.0Trough: 4.0-8.0 Toxic: >35.0 SURGICALLY OBTAINED CULTURE + GRAM [id number] 08:25:00 Test Item Value Reference Interpretation Comments [...] No organisms seen (BEAKER) (test code = 290212) ANAEROBIC [id number] 07:53:00 Test Item Value Reference Range Interpretation Comments CULTURE (BEAKER) (test No anaerobes isolated code = 1095) GRAM STAIN RESULT 1+ WBCs (BEAKER) (test code = 1123) GRAM STAIN RESULT No organisms seen (BEAKER) (test code = 29708) POCT-GLUCOSE [id number] 06:37:00 Test Item Value Reference Range Interpretation Comments POC-GLUCOSE METER 135 mg/dL 70-110 H TESTED AT [facility] [address] (BEAKER) (test code [facility] = 1538) [place] [address] HIV-1 ANTIGEN WITH HIV-1/2 [id number] 05:51:00 Test Item Value Reference Range Interpretation Comments HIV-1 ANTIGEN WITH HIV 1\\T\\2 Nonreactive Nonreactive ANTIBODY (2) (BEAKER) (test code = 2586) HEPATITIS B SURFACE [id number] 05:46:00 Test Item Value Reference Range Interpretation Comments HEPATITIS B SURFACE ANTIGEN (2) Nonreactive Nonreactive (BEAKER) (test code = 2585) CBC W/PLT COUNT & AUTO [id number] 05:11:00 Test Item Value Reference Range Interpretation [...] code = 2801) Smear reviewed. Results confirmed.POCT-GLUCOSE [id number] 23:01:00 Test Item Value Reference Range Interpretation Comments POC-GLUCOSE METER 111 mg/dL 70-110 H TESTED AT [facility] [address] ([facility]) (test code [facility] = 1538) [place] [address] POCT-GLUCOSE [id number] 17:15:00 Test Item Value Reference Range Interpretation Comments POC-GLUCOSE METER 100 mg/dL 70-110 TESTED AT [facility] [address] ([facility]) (test code [facility] = 1538) [place] [address] C-REACTIVE [id number] 14:34:00 Test Item Value Reference Range Interpretation Comments C-REACTIVE PROTEIN ([facility]) (test 35.06 mg/dL 0.00-0.50 H code = 676) POCT-GLUCOSE [id number] 12:50:00 Test Item Value Reference Range Interpretation Comments POC-GLUCOSE METER 221 mg/dL 70-110 H TESTED AT [facility] [address] ([facility]) (test code [facility] = 1538) [place] [address] CBC W/PLT COUNT & AUTO [id number] 10:56:00 Test Item Value Reference Range Interpretation Comments WHITE BLOOD CELL COUNT 34.9 K/ L 4.0-10.0 H (AKER) (test code = 775) RED BLOOD CELL COUNT 3.27 M/ L 4.00-5.00 L (AKER) (test code = 761) HEMOGLOBIN ([facility]) 8.7 GM/DL 12.0-15.5 L (test [...] PERCENT (BEAKER) (test code = 2801) POCT-GLUCOSE [id number] 10:03:00 Test Item Value Reference Range Interpretation Comments POC-GLUCOSE METER 104 mg/dL 70-110 TESTED AT [facility] [address] (BEAKER) (test code [facility] = 1538) [place] [address] BASIC METABOLIC [id number] 04:51:00 Test Item Value Reference Range Interpretation [...] NOT APPLICABLE FOR DIALYSIS PATIEN TS. POCT-GLUCOSE [id number] 20:41:00 Test Item Value Reference Range Interpretation Comments POC-GLUCOSE METER 127 mg/dL 70-110 H TESTED AT [facility] [address] ([facility]) (test code [facility] = 1538) [place] [address] POCT-GLUCOSE [id number] 17:03:00 Test Item Value Reference Range Interpretation Comments POC-GLUCOSE METER 145 mg/dL 70-110 H TESTED AT [address] ([facility]) (test code [facility] = 1538) [place] [address] [id number] 12:39:00 Test Item Value Reference Range Interpretation Comments PROCALCITONIN ([facility]) (test code 1.27 ng/mL <0.05 H = 3036) SEPSIS RISK (ng/mL)Low: 0.05-0.50Intermediate: 0.51-2.00High: >=2.01POCT-GLUCOSE [id number] 11:58:00 Test Item Value Reference Range Interpretation Comments POC-GLUCOSE METER 120 mg/dL 70-110 H TESTED AT [facility] [address] (BEAKER) (test code [facility] = 1538) [place] [address] CBC W/PLT COUNT & AUTO [id number] 09:50:00 Test Item Value Reference Range Interpretation [...] PERCENT (BEAKER) (test code = 2801) POCT-GLUCOSE [id number] 06:32:00 Test Item Value Reference Range Interpretation Comments POC-GLUCOSE METER 124 mg/dL 70-110 H TESTED AT [facility] [address] (BEAKER) (test code [facility] = 1538) [place] [address] BASIC METABOLIC [id number] 06:27:00 Test Item Value Reference Range Interpretation [...] APPLICABLE FOR DIALYSIS PATIEN TS. BUN AND [id number] 06:26:00 Test Item Value Reference Range Interpretation [...] APPLICABLE FOR DIALYSIS PATIEN TS. HEMOGLOBIN AND [id number] 06:03:00 Test Item Value Reference Range Interpretation Comments HEMOGLOBIN (BEAKER) (test code = 8.6 GM/DL 12.0-15.5 L 410) HEMATOCRIT (BEAKER) (test code = 25.9 % 36.0-46.0 L 411) CT, CHEST, WITHOUT [id number] 22:51:00FINAL REPORT CLINICAL HISTORY: Leukocytosis FINDINGS: Multiple [...] MDReport Verified Date/Time: 11/15/2017 22:51:35 Reading Location: [address] [place], [id number] 22:51:00FINAL REPORT CLINICAL HISTORY: Leukocytosis FINDINGS: Multiple [...] MDReport Verified Date/Time: 11/15/2017 22:51:35 Reading Location: [address] Reading Room POCT-GLUCOSE [id number] 21:14:00 Test Item Value Reference Range Interpretation Comments POC-GLUCOSE METER 128 mg/dL 70-110 H TESTED AT [facility] [address] (BEAKER) (test code [facility] = 1538) [place] [address] POCT-GLUCOSE [id number] 17:10:00 Test Item Value Reference Range Interpretation Comments POC-GLUCOSE METER 109 mg/dL 70-110 TESTED AT [facility] [address] (BEAKER) (test code [facility] = 1538) [place] [address] POCT-GLUCOSE [id number] 12:15:00 Test Item Value Reference Range Interpretation Comments POC-GLUCOSE METER 116 mg/dL 70-110 H TESTED AT [facility] [address] (BEAKER) (test code [facility] = 1538) [place] [address] SPIN/CONCENTRATION [id number] 10:39:00 Test Item Value Reference Range Interpretation Comments CONCENTRATION CHARGED (BEAKER) (test Done code = 2657) CBC W/PLT COUNT & AUTO [id number] 09:22:00 Test Item Value Reference Range Interpretation [...] (test code = 2801) TYPE AND SCREEN, [id number] 08:18:00 Test Item Value Reference Range Interpretation Comments ABO/RH AUTOMATED (BEAKER) (test B POSITIVE code = 2260) AB SCREEN (BEAKER) (test code = NEGATIVE 923) ANAEROBIC [id number] 07:55:00 Test Item Value Reference Range Interpretation Comments CULTURE (BEAKER) (test No anaerobes isolated code = 1095) BASIC METABOLIC [id number] 05:40:00 Test Item Value Reference Range Interpretation [...] APPLICABLE FOR DIALYSIS PATIEN TS. BUN AND [id number] 05:37:00 Test Item Value Reference Range Interpretation [...] APPLICABLE FOR DIALYSIS PATIEN TS. VANCOMYCIN LEVEL, [id number] 05:36:00 Test Item Value Reference Range Interpretation Comments VANCOMYCIN TROUGH (BEAKER) (test 17.5 ug/mL 10.0-20.0 code = 522) HEMOGLOBIN AND [id number] 05:23:00 Test Item Value Reference Range Interpretation Comments HEMOGLOBIN (BEAKER) (test code = 6.4 GM/DL 12.0-15.5 L 410) HEMATOCRIT (BEAKER) (test code = 19.3 % 36.0-46.0 LL 411) POCT-GLUCOSE [id number] 16:12:00 Test Item Value Reference Range Interpretation Comments POC-GLUCOSE METER 129 mg/dL 70-110 H TESTED AT [facility] [address] (BEAKER) (test code [employer] [facility] = 1538) [place] [address] POCT-GLUCOSE [id number] 12:07:00 Test Item Value Reference Range Interpretation Comments POC-GLUCOSE METER 114 mg/dL 70-110 H TESTED AT [facility] [address] (BEAKER) (test code [employer] [facility] = 1538) [place] [address] POCT-GLUCOSE [id number] 10:00:00 Test Item Value Reference Range Interpretation Comments POC-GLUCOSE METER 97 mg/dL 70-110 TESTED AT [facility] [address] (BEAKER) ([facility] [place] [address] SURGICALLY OBTAINED CULTURE + GRAM [id number] 09:36:00 Test Item Value Reference Range Interpretation Comments CULTURE (BEAKER) (test code No growth = 1095) GRAM STAIN RESULT (BEAKER) <1+ WBCs (test code = 1123) GRAM STAIN RESULT (BEAKER) No organisms seen (test code = 90362) POCT-GLUCOSE [id number] 06:06:00 Test Item Value Reference Range Interpretation Comments POC-GLUCOSE METER 105 mg/dL 70-110 TESTED AT [facility] [address] (BEAKER) (test code ELADIO [facility] = 1538) [place] [address] BASIC METABOLIC [id number] 05:55:00 Test Item Value Reference Range Interpretation [...] PATIEN TS. CBC W/PLT COUNT & AUTO [id number] 05:35:00 Test Item Value Reference Range Interpretation [...] H GRANULOCYTES-RELATIVE PERCENT (BEAKER) (test code = 2806) POCT-GLUCOSE [id number] 21:11:00 Test Item Value Reference Range Interpretation Comments POC-GLUCOSE METER 94 mg/dL 70-110 TESTED AT [facility] [address] (BEAKER) (test code = [facility] 1538) [place] [address] POCT-GLUCOSE [id number] 16:51:00 Test Item Value Reference Range Interpretation Comments POC-GLUCOSE METER 121 mg/dL 70-110 H TESTED AT [facility] [address] (BEAKER) (test code [facility] = 1538) [place] [address] POCT-GLUCOSE [id number] 15:10:00 Test Item Value Reference Range Interpretation Comments POC-GLUCOSE METER 97 mg/dL 70-110 TESTED AT [facility] [address] (BEAKER) (test code = [facility] 153) [place] [address] [id number] 10:17:00 Test Item Value Reference Range Interpretation Comments PROCALCITONIN (BEAKER) (test code 1.41 ng/mL <0.05 H = 3036) SEPSIS RISK (ng/mL)Low: 0.05-0.50Intermediate: 0.51-2.00High: >=2.01HEPATIC FUNCTION [id number] 09:52:00 Test Item Value Reference Range Interpretation [...] code = 12 U/L 6-50 347) POCT-GLUCOSE [id number] 05:57:00 Test Item Value Reference Range Interpretation Comments POC-GLUCOSE METER 87 mg/dL 70-110 TESTED AT [facility] [address] (BEAKER) (test code = [facility] 153) [place] [address] BASIC METABOLIC [id number] 05:34:00 Test Item Value Reference Range Interpretation [...] PATIEN TS. CBC W/PLT COUNT & AUTO [id number] 05:33:00 Test Item Value Reference Range Interpretation [...] (BEAKER) (test code = 2801) BUN AND [id number] 05:32:00 Test Item Value Reference Range Interpretation Comments BLOOD UREA NITROGEN 21 mg/dL 10-26 (BEAKER) (test code = 354) CREATININE (BEAKER) 0.79 mg/dL 0.50-1.20 (test code = 358) EGFR (BEAKER) (test 91 mL/min/1.73 ESTIMA YUMIKO GFR IS code = 1092) sq m NOT ACCURATE CREATININE CLEARANCE IN PREDICTING GLOMERULAR FILTRATION RATE . ESTIMATED GFR I S NOT APPLICABLE FOR DIALYSIS PATIEN TS. BLOOD [id number] 04:00:00 Test Item Value Reference Range Interpretation Comments CULTURE (BEAKER) (test No growth in 5 days code = 1095) BLOOD [id number] 01:00:00 Test Item Value Reference Range Interpretation Comments CULTURE (BEAKER) (test No growth in 5 days code = 1095) POCT-GLUCOSE [id number] 21:25:00 Test Item Value Reference Range Interpretation Comments POC-GLUCOSE METER 135 mg/dL 70-110 H TESTED AT [facility] [address] ([facility]) (test code LUCIA [facility] = 1538) [place] [address] ANG, NON-TUNNELED CATH/PICC >5 Y.O.2017-11-12 17:59:00Reason for [...] MDReport Verified Date/Time: 11/12/2017 17:59:19 Reading Location: [facility] Radiology Reading Room POCT-GLUCOSE [id number] 16:37:00 Test Item Value Reference Range Interpretation Comments POC-GLUCOSE METER 98 mg/dL 70-110 TESTED AT [facility] [address] ([facility]) (test code = [facility] 1538) [place] [address] PERIPHERAL BLOOD SMEAR - PATH REVIEW LAB [id number] 08:14:00 Test Item Value Reference Range Interpretation Comments PERIPHERAL SMR REVIEW Neutrophilic ([facility]) (test code = leukocytosis and 2640) microcytic anemia. No blast forms seen. [id number] Nazario Becker M.D. (BEAKER) (test code = (electronic signature) 9561) (MANUAL DIFFERENTIAL)2017-11-12 08:12:00 Test Item Value Reference [...] few 963) BODY FLUID CULTURE + GRAM [id number] 08:10:00 Test Item Value Reference Range Interpretation Comments CULTURE (BEAKER) (test No growth code = 1095) GRAM STAIN RESULT 3+ White blood cells (BEAKER) (test code = seen 1123) GRAM STAIN RESULT No organisms seen (BEAKER) (test code = 16831) POCT-GLUCOSE [id number] 06:18:00 Test Item Value Reference Range Interpretation Comments POC-GLUCOSE METER 113 mg/dL 70-110 H TESTED AT [facility] [address] (BEAKER) (test code [facility] = 1538) [place] [address] CBC W/PLT COUNT & AUTO [id number] 04:40:00 Test Item Value Reference Range Interpretation [...] (BEAKER) (test code = 2801) BASIC METABOLIC [id number] 03:56:00 Test Item Value Reference Range Interpretation [...] APPLICABLE FOR DIALYSIS PATIEN TS. BUN AND [id number] 03:55:00 Test Item Value Reference Range Interpretation Comments BLOOD UREA NITROGEN 19 mg/dL 10-26 (BEAKER) (test code = 354) CREATININE (BEAKER) 0.81 mg/dL 0.50-1.20 (test code = 358) EGFR (BEAKER) (test 88 mL/min/1.73 ESTIMA YUMIKO GFR IS code = 1092) sq m NOT ACCURATE CREATININE CLEARANCE IN PREDICTING GLOMERULAR FILTRATION RATE . ESTIMATED GFR I S NOT APPLICABLE FOR DIALYSIS PATIEN TS. POCT-GLUCOSE [id number] 20:51:00 Test Item Value Reference Range Interpretation Comments POC-GLUCOSE METER 151 mg/dL 70-110 H TESTED AT [facility] [address] (BEAKER) (test code [facility] = 1538) [place] [address] POCT-GLUCOSE [id number] 17:20:00 Test Item Value Reference Range Interpretation Comments POC-GLUCOSE METER 101 mg/dL 70-110 TESTED AT [facility] [address] (BEAKER) (test code [facility] = 1538) [place] [address] SPIN/CONCENTRATION [id number] 15:42:00 Test Item Value Reference Range Interpretation Comments CONCENTRATION CHARGED (BEAKER) (test Done code = 2657) POCT-GLUCOSE [id number] 11:34:00 Test Item Value Reference Range Interpretation Comments POC-GLUCOSE METER 109 mg/dL 70-110 TESTED AT [facility] [address] (BEAKER) (test code [facility] = 1538) [place] [address] VANCOMYCIN LEVEL, [id number] 09:14:00 Test Item Value Reference Range Interpretation Comments VANCOMYCIN TROUGH (BEAKER) (test 10.6 ug/mL 10.0-20.0 code = 522) BASIC METABOLIC [id number] 05:59:00 Test Item Value Reference Range Interpretation [...] APPLICABLE FOR DIALYSIS PATIEN TS. BUN AND [id number] 05:58:00 Test Item Value Reference Range Interpretation Comments BLOOD UREA NITROGEN 17 mg/dL 10-26 (BEAKER) (test code = 354) CREATININE (BEAKER) 0.80 mg/dL 0.50-1.20 (test code = 358) EGFR (BEAKER) (test 90 mL/min/1.73 ESTIMA YUMIKO GFR IS code = 1092) sq m NOT ACCURATE CREATININE CLEARANCE IN PREDICTING GLOMERULAR FILTRATION RATE . ESTIMATED GFR I S NOT APPLICABLE FOR DIALYSIS PATIEN TS. POCT-GLUCOSE [id number] 05:49:00 Test Item Value Reference Range Interpretation Comments POC-GLUCOSE METER 121 mg/dL 70-110 H TESTED AT [facility] [address] ([facility]) (test code [facility] = 1538) [place] [address] CBC W/PLT COUNT & AUTO [id number] 05:43:00 Test Item Value Reference Range Interpretation [...] PERCENT (BEAKER) (test code = 2801) POCT-GLUCOSE [id number] 00:07:00 Test Item Value Reference Range Interpretation Comments POC-GLUCOSE METER 150 mg/dL 70-110 H TESTED AT [facility] [address] ([facility]) (test code [facility] = 1538) [place] [address] RAD, HIP, 1 VIEW, [id number] 23:51:00Reason for exam:->postopFINAL REPORT Right hip. HISTORY: Postoperative. COMPARISON STUDY: October 29, 2017. FINDINGS: A single frontal view of the right hip demonstrates a hemiarthroplasty in place. No cement is identified. There is no evidence of fracture or malalignment on this single projection. Signed: Alexandrea Martines MDReport Verified Date/Time: 11/10/2017 23:51:24 Reading Location: [facility] B1 C013X Ortho Consult Reading Room RAD, PELVIS, 1 OR 2 [id number] 23:22:00Reason for exam:->Hip ArthroplastyReason for exam:->X-Table Lateral [...] MDReport Verified Date/Time: 11/10/2017 23:22:52 Reading Location: [facility] C0X Ortho Consult Reading Room POCT-GLUCOSE [id number] 22:54:00 Test Item Value Reference Range Interpretation Comments POC-GLUCOSE METER 140 mg/dL 70-110 H TESTED AT [address] ([facility]) (test code [facility] = 1538) [place] [address] POCT-GLUCOSE [id number] 16:57:00 Test Item Value Reference Range Interpretation Comments POC-GLUCOSE METER 98 mg/dL 70-110 TESTED AT [address] ([facility]) (test code = [facility] 1538) [place] [address] POCT-GLUCOSE [id number] 12:41:00 Test Item Value Reference Range Interpretation Comments POC-GLUCOSE METER 111 mg/dL 70-110 H TESTED AT [address] ([facility]) (test code [facility] = 1538) [place] [address] (MANUAL DIFFERENTIAL)2017-11-10 07:35:00 Test Item Value Reference [...] = 762) CBC W/PLT COUNT & AUTO [id number] 07:32:00 Test Item Value Reference Range Interpretation [...] 0-0 CELLS (BEAKER) (test code = 413) [id number] 07:25:00 Test Item Value Reference Range Interpretation Comments PHOSPHORUS (BEAKER) (test code = 3.5 mg/dL 2.5-4.5 604) [id number] 07:25:00 Test Item Value Reference Range Interpretation Comments MAGNESIUM (BEAKER) (test code = 1.7 mg/dL 1.5-3.0 627) BASIC METABOLIC [id number] 07:25:00 Test Item Value Reference Range Interpretation [...] NOT APPLICABLE FOR DIALYSIS PATIEN TS. POCT-GLUCOSE [id number] 06:45:00 Test Item Value Reference Range Interpretation Comments POC-GLUCOSE METER 121 mg/dL 70-110 H TESTED AT [facility] [address] (BEAKER) (test code [facility]Anita [facility] = 1538) [place] [address] POCT-GLUCOSE [id number] 22:14:00 Test Item Value Reference Range Interpretation Comments POC-GLUCOSE METER 124 mg/dL 70-110 H TESTED AT [facility] [address] (BEAKER) (test code [facility]Anita [facility] = 1538) [place] [address] VANCOMYCIN LEVEL, [id number] 21:02:00 Test Item Value Reference Range Interpretation Comments VANCOMYCIN TROUGH (BEAKER) (test 9.6 ug/mL 10.0-20.0 L code = 522) POCT-GLUCOSE [id number] 17:22:00 Test Item Value Reference Range Interpretation Comments POC-GLUCOSE METER 98 mg/dL 70-110 TESTED AT [facility] [address] ([facility]) (test code = [facility] 1536) [place] [address] POCT-GLUCOSE [id number] 11:36:00 Test Item Value Reference Range Interpretation Comments POC-GLUCOSE METER 127 mg/dL 70-110 H TESTED AT [facility] [address] (BEAKER) (test code [facility] = 1538) [place] [address] WOUND CULTURE + GRAM [id number] 11:05:00 Test Item Value Reference Interpretation Comments Range CULTURE ([facility]) (test ENTEROBACTER A <1+ E [...] No organisms seen (AKER) (test code = 518518) POCT-GLUCOSE [id number] 05:54:00 Test Item Value Reference Range Interpretation Comments POC-GLUCOSE METER 116 mg/dL 70-110 H TESTED AT [facility] [address] (BEAKER) (test code [facility] = 1538) [place] [address] [id number] 03:42:00 Test Item Value Reference Range Interpretation Comments PHOSPHORUS (BEAKER) (test code = 3.8 mg/dL 2.5-4.5 604) [id number] 03:42:00 Test Item Value Reference Range Interpretation Comments MAGNESIUM (BEAKER) (test code = 1.9 mg/dL 1.5-3.0 627) BASIC METABOLIC [id number] 03:42:00 Test Item Value Reference Range Interpretation [...] PATIEN TS. CBC W/PLT COUNT & AUTO [id number] 03:21:00 Test Item Value Reference Range Interpretation [...] PERCENT (BEAKER) (test code = 2801) POCT-GLUCOSE [id number] 20:55:00 Test Item Value Reference Range Interpretation Comments POC-GLUCOSE METER 122 mg/dL 70-110 H TESTED AT [facility] [address] (BEAKER) (test code [facility] = 1538) [place] [address] POCT-GLUCOSE [id number] 16:19:00 Test Item Value Reference Range Interpretation Comments POC-GLUCOSE METER 136 mg/dL 70-110 H TESTED AT [facility] [address] (BEAKER) (test code [employer] [facility] = 1538) [place] [address] HEMOGLOBIN AND [id number] 14:19:00 Test Item Value Reference Range Interpretation Comments HEMOGLOBIN (BEAKER) (test code = 8.1 GM/DL 12.0-15.5 L 410) HEMATOCRIT (BEAKER) (test code = 24.9 % 36.0-46.0 L 411) POCT-GLUCOSE [id number] 12:13:00 Test Item Value Reference Range Interpretation Comments POC-GLUCOSE METER 142 mg/dL 70-[address] [place] [address] [address] (BEAKER) (test code [facility] = 1538) [place] [address] POCT-GLUCOSE [id number] 06:02:00 Test Item Value Reference Range Interpretation Comments POC-GLUCOSE METER 109 mg/dL 70-110 TESTED AT [facility] [address] (BEAKER) (test code [facility] = 1538) [place] [address] POCT-GLUCOSE [id number] 05:38:00 Test Item Value Reference Range Interpretation Comments POC-GLUCOSE METER 150 mg/dL 70-110 H TESTED AT [facility] [address] (BEAKER) (test code [facility] = 1538) [place] [address] TYPE AND SCREEN, [id number] 03:11:00 Test Item Value Reference Range Interpretation Comments ABO/RH AUTOMATED (BEAKER) (test B Positive code = 2260) AB SCREEN (BEAKER) (test code = Negative 923) HEMOGLOBIN AND [id number] 02:41:00 Test Item Value Reference Range Interpretation Comments HEMOGLOBIN (BEAKER) (test code = 5.9 GM/DL 12.0-15.5 LL 410) HEMATOCRIT (BEAKER) (test code = 18.2 % 36.0-46.0 LL 411) COMPREHENSIVE METABOLIC [id number] 01:43:00 Test Item Value Reference Range Interpretation [...] S NOT APPLICABLE FOR DIALYSIS PATIEN TS. [id number] 01:36:00 Test Item Value Reference Range Interpretation Comments PHOSPHORUS (BEAKER) (test code = 3.3 mg/dL 2.5-4.5 604) [id number] 01:36:00 Test Item Value Reference Range Interpretation Comments MAGNESIUM (BEAKER) (test code = 1.9 mg/dL 1.5-3.0 627) LACTIC ACID, VENOUS, WHOLE [id number] 01:29:00 Test Item Value Reference Range Interpretation Comments LACTATE BLOOD VENOUS (2) (BEAKER) 0.8 mmol/L 0.5-2.2 (test code = 2872) Effective 07/19/2015: Units/Reference Range ChangeNew: 0.5-2.2 mmol/L Previous: 5-20 mg/dLCBC W/PLT COUNT & AUTO [id number] 01:25:00 Test Item Value Reference Range Interpretation [...] PERCENT (BEAKER) (test code = 2801) POCT-GLUCOSE [id number] 21:52:00 Test Item Value Reference Range Interpretation Comments POC-GLUCOSE METER 113 mg/dL 70-110 H TESTED AT [facility] [address] (BEAKER) (test code [place] [facility] = 1538) [place] [address] CT, EXTREMITY, LOWER WITHOUT CONTRAST, [id number] 19:15:00FINAL REPORT CT scan of the right [...] Martines Verified Date/Time: 11/07/2017 19:15:59 Reading Location: [address] Consult Reading Room RAD, HIP, 2 VIEWS, [id number] 16:19:00Reason for exam:->HIP PAIN FINAL REPORT INDICATION:Right [...] Singletary Verified Date/Time: 11/07/2017 16:19:47 Reading Location: [facility] Women CBC W/PLT COUNT & AUTO [id number] 16:00:00 Test Item Value Reference Range Interpretation [...] (BEAKER) (test code Normal = 762) C-REACTIVE [id number] 15:30:00 Test Item Value Reference Range Interpretation Comments C-REACTIVE PROTEIN (BEAKER) (test 47.39 mg/dL 0.00-0.50 H code = 676) COMPREHENSIVE METABOLIC [id number] 15:30:00 Test Item Value Reference Range Interpretation [...] APPLICABLE FOR DIALYSIS PATIEN TS. BASIC METABOLIC [id number] 06:26:00 Test Item Value Reference Range Interpretation [...] PATIEN TS. CBC W/PLT COUNT & AUTO [id number] 06:12:00 Test Item Value Reference Range Interpretation [...] L 0.00-0.20 (test code = 417) POCT-GLUCOSE [id number] 05:55:00 Test Item Value Reference Range Interpretation Comments POC-GLUCOSE METER 120 mg/dL 70-110 H TESTED AT [facility] [address] (BEAKER) (test code [employer] [facility] = 1538) [place] [address] POCT-GLUCOSE [id number] 21:07:00 Test Item Value Reference Range Interpretation Comments POC-GLUCOSE METER 121 mg/dL 70-110 H TESTED AT [facility] [address] (BEAKER) (test code HeyAnita [facility] = 1538) [place] [address] POCT-GLUCOSE [id number] 17:45:00 Test Item Value Reference Range Interpretation Comments POC-GLUCOSE METER 131 mg/dL 70-110 H TESTED AT [facility] [address] (BEAKER) (test code [facility] = 1538) [place] [address] HEMOGLOBIN AND [id number] 14:26:00 Test Item Value Reference Range Interpretation Comments HEMOGLOBIN (BEAKER) (test code = 7.9 GM/DL 12.0-15.0 L 410) HEMATOCRIT (BEAKER) (test code = 24.6 % 36.0-45.0 L 411) POCT-GLUCOSE [id number] 11:22:00 Test Item Value Reference Range Interpretation Comments POC-GLUCOSE METER 134 mg/dL 70-[address] [place] [address] [address] (BEAKER) (test code [facility] = 1538) [place] [address] BASIC METABOLIC [id number] 05:16:00 Test Item Value Reference Range Interpretation [...] APPLICABLE FOR DIALYSIS PATIEN TS. Specimen recollected. [id number] 04:56:00 Test Item Value Reference Range Interpretation Comments POC-GLUCOSE METER 141 mg/dL 70-110 H TESTED AT [facility] [address] (BEAKER) (test code [facility] = 1538) [place] [address] HEMOGLOBIN AND [id number] 04:10:00 Test Item Value Reference Range Interpretation [...] few 965) CBC W/PLT COUNT & AUTO [id number] 21:34:00 Test Item Value Reference Range Interpretation [...] 6.5-10.5 (BEAKER) (test code = 754) POCT-GLUCOSE [id number] 21:17:00 Test Item Value Reference Range Interpretation Comments POC-GLUCOSE METER 126 mg/dL 70-110 H TESTED AT [facility] [address] (BEAKER) (test code [facility] = 1538) [place] [address] POCT-GLUCOSE [id number] 18:04:00 Test Item Value Reference Range Interpretation Comments POC-GLUCOSE METER 117 mg/dL 70-110 H TESTED AT [facility] [address] (BEAKER) (test code [facility] = 1538) [place] [address] POCT-GLUCOSE [id number] 11:38:00 Test Item Value Reference Range Interpretation Comments POC-GLUCOSE METER 133 mg/dL 70-110 H TESTED AT [facility] [address] (BEAKER) (test code [facility] = 1538) [place] [address] BASIC METABOLIC [id number] 04:20:00 Test Item Value Reference Range Interpretation [...] APPLICABLE FOR DIALYSIS PATIEN TS. HEMOGLOBIN AND [id number] 04:11:00 Test Item Value Reference Range Interpretation Comments HEMOGLOBIN (BEAKER) (test code = 8.1 GM/DL 12.0-15.0 L 410) HEMATOCRIT (BEAKER) (test code = 25.6 % 36.0-45.0 L 411) POCT-GLUCOSE [id number] 04:03:00 Test Item Value Reference Range Interpretation Comments POC-GLUCOSE METER 151 mg/dL 70-110 H TESTED AT [facility] [address] ([facility]) (test code [facility] = 1538) [place] [address] RAD, HIP, 1 VIEW, [id number] 21:16:00Reason for exam:->postopShould this be performed at [...] [place] Verified Date/Time: 10/29/2017 21:16:21 Reading Location: [facility] C0T [facility] Re ading Room POCT-GLUCOSE [id number] 20:20:00 Test Item Value Reference Range Interpretation Comments POC-GLUCOSE METER 76 mg/dL 70-110 TESTED AT [facility] [address] (BEAKER) ([facility] [place] [address] POCT-GLUCOSE [id number] 15:13:00 Test Item Value Reference Range Interpretation Comments POC-GLUCOSE METER 150 mg/dL 70-110 H TESTED AT [facility] [address] (BEAKER) (test code ELADIO [facility] = 1538) [place] [address] RAD, HIP, OPERATIVE, [id number] 14:41:00Reason for exam:->RequiredFINAL REPORT RIGHT HIP ONE VIEW HISTORY: Right hip pain, right hip arthroplasty COMPARISON: None FINDINGS: Single intraoperative image of the right hip/low pelvis shows in progress changes of right hip total arthroplasty. A reamer is present in the proximal right femur. The acetabular region is obscured by overlying hardware. Signed: Ceci Aldrich Verified Date/Time: 10/29/2017 14:41:51 Reading Location: [facility] Radiology Reading Room POCT- GLUCOSE [id number] 09:53:00 Test Item Value Reference Range Interpretation Comments POC-GLUCOSE METER 104 mg/dL 70-110 TESTED AT [facility] [address] ([facility]) (test code LUCIA [facility] = 1538) [place] [address] BASIC METABOLIC [id number] 12:23:00 Test Item Value Reference Range Interpretation [...] APPLICABLE FOR DIALYSIS PATIEN TS. URINALYSIS W/ [id number] 12:21:00 Test Item Value Reference Range Interpretation [...] code = 1663) SOURCE(BEAKER) (test code = 5675) CBC W/PLT COUNT & AUTO [id number] 12:18:00 Test Item Value Reference Range Interpretation [...] L 0.00-0.20 (test code = 417) MRSA [id number] 08:33:00 Test Item Value Reference Range Interpretation Comments CULTURE (BEAKER) (test code No MRSA isolated = 1095)
--- NOTE | 2021-05-09 15:52 | RAD REPORT ---
EXAM DESCRIPTION: RAD - Lumbar Spine 3 Views - 05/09/2021 3:29 pm CLINICAL HISTORY: PAIN Radiculopathy COMPARISON: No comparisons FINDINGS: Vertebral body heights appear maintained. No compression fracture noted. Disc thinning is present at the lower lumbar levels. Facet hypertrophy is present at L4-5 and L5-S1. IMPRESSION: Mild lower lumbar degenerative changes. No acute abnormality detected.
--- NOTE | 2021-05-09 16:06 | ER ---
Nurse's Notes [facility] Name: Sade Galdamez Age: 61 yrs Sex: Female : 1960 Arrival Date: 05/09/2021 Time: 12:43 Bed 25 Private MD: Diagnosis: Low back pain Presentation: 05/09 13:07 Chief complaint: Patient states: pt bib by ems for fall from recliner, no loc, pt c/o lr4 lower back pain and L hip pain, pt describes the pain as sharp and rates it 10/10 on pain scale and states that pain is aggravated by movement. Coronavirus screen: Vaccine status: Patient reports receiving the 2nd dose of the covid vaccine. Date September 2020. Ebola Screen: Patient negative for fever greater than or equal to 101.5 degrees Fahrenheit, and additional compatible Ebola Virus Disease symptoms. Initial Sepsis Screen: Does the patient meet any 2 criteria? No. Patient's initial sepsis screen is negative. Does the patient have a suspected source of infection? No. Patient's initial sepsis screen is negative. Risk Assessment: Do you want to hurt yourself or someone else? Patient reports no desire to harm self or others. Onset of symptoms was May 09, 2021. 13:07 Method Of Arrival: EMS lr4 13:07 Acuity: ABDIRIZAK 4 lr4 Triage Assessment: 15:40 General: Appears in no apparent distress. uncomfortable, Behavior is calm, cooperative. lr4 Pain: Complains of pain in left hip and lower back. Historical: - Allergies: 13:09 Iodinated Contrast Media - IV Dye; lr4 13:09 iopamidol; lr4 - PMHx: 13:09 breast cancer; chemotherapy; Tumor to groin area; Hypertension; lr4 - PSHx: 13:09 ovi mastectomy; hysterectomy; lr4 - Immunization history:: Adult Immunizations up to date. - Social history:: Smoking status: Patient denies any tobacco usage or history of. - Family history:: not pertinent. Screenin:38 Abuse screen: Denies threats or abuse. Nutritional screening: No deficits noted. lr4 Tuberculosis screening: No symptoms or risk factors identified. Fall Risk Secondary diagnosis (15 points) No IV (0 pts). Ambulatory Aid- Crutches/Cane/Walker (15 pts). Gait- Weak (10 pts.). Mental Status- Oriented to own ability (0 pts). Total Schaeffer Fall Scale indicates High Risk Score (45 or more points). Side Rails Up X 2 Frequent Obs/Assessments Occuring As available patient and family educated on Fall Prevention Program and Strategies. Assessment: 17:36 Reassessment: see triage. ss7 17:36 Reassessment: Pt discharged home via ems with all personal belongings in NAD> . ss7 Vital Signs: 13:07 BP 124 / 55; Pulse 100; Resp 20; Temp 98.5; Pulse Ox 100% ; Weight 104.33 kg; Height 5 lr4 ft. 5 in. (165.10 cm); Pain 10/10; 15:38 BP 95 / 48; Pulse 95; Resp 20; Pulse Ox 99% ; lr4 16:49 BP 119 / 65; Pulse 99; Resp 18; Pulse Ox 98% ; ss7 17:00 BP 119 / 65; Pulse 100; Resp 16; Pulse Ox 100% ; lr4 13:07 Body Mass Index 38.27 (104.33 kg, 165.10 cm) lr4 ED Course: 12:43 Patient arrived in ED. iw 13:06 Shannan Olson, RN is Primary Nurse. lr4 13:09 Triage completed. lr4 13:25 Scott Cortez MD is Attending Physician. ma2 13:51 Radiology exam delayed due to pt wanting pain meds prior to xray. md1 14:19 Lumbar Spine (3 Views) XRAY Sent. lr4 15:29 Lumbar Spine (3 Views) XRAY In Process Unspecified. EDMS 15:40 Arm band placed on right wrist. lr4 15:41 Patient has correct armband on for positive identification. Call light in reach. Door lr4 closed. Warm blanket given. PO fluids given. Verbal reassurance given. Head of bed. 15:42 No provider procedures requiring assistance completed. lr4 17:00 Patient did not have IV access during this emergency room visit. lr4 Administered Medications: 14:30 CANCELLED (Duplicate Order): Dilaudid (HYDROmorphone) 1 mg IVP once; RASS on ADMIN: iw Combtv4, Very Agttd3, Agttd2, Rstlss1, AlertClm0, Drwsy-1, Lt Sdtn-2, Mod Sdtn-3, Dp Sdtn-4, UnArsble-5 14:30 CANCELLED (Duplicate Order): Zofran (Ondansetron) 4 mg IVP once; over 2 minutes iw 14:55 Drug: Dilaudid (HYDROmorphone) 1 mg Route: IM; Site: right deltoid; lr4 16:34 Follow up: Response: No adverse reaction; Pain is decreased; RASS: Alert and Calm (0) lr4 14:55 Drug: Zofran (Ondansetron) 4 mg Route: PO; lr4 16:34 Follow up: Response: Nausea is decreased lr4 Outcome: 15:42 Condition: stable lr4 16:05 Discharge ordered by . ma2 17:00 Discharged to home via ambulance. lr4 17:00 Discharge instructions given to patient, family. lr4 17:35 Patient left the ED. ss7 Signatures: Dispatcher [employer] Delfina Canas, SILAS RN Scott Cortez MD MD ma2 [place] md1 Shima Dempsey RN RN ss7 Shannan Olson RN RN lr4
--- NOTE | 2021-05-09 16:06 | EDPHYS ---
Physician Documentation [facility] Name: Sade Galdamez Age: 61 yrs Sex: Female : 1960 Arrival Date: 05/09/2021 Time: 12:43 Bed 25 Private MD: ED Physician Scott Cortez HPI: 05/09 13:52 This 61 yrs old Black Female presents to ER via EMS with complaints of Fall Injury. ma2 13:52 I saw this patient last night, she has chronic sarcoma left groin, came yesterday for ma2 worsening of pain received Dilaudid Zofran, then she was discharged. However when she went home she stated that she was trying to sit down in her chair but tripped and fell hit her sacral area here with lower back pain and sacral pain, there is no red flags for a lower back pain such as urinary incontinence or retention, there is no fever. Historical: - Allergies: 13:09 Iodinated Contrast Media - IV Dye; lr4 13:09 iopamidol; lr4 - PMHx: 13:09 breast cancer; chemotherapy; Tumor to groin area; Hypertension; lr4 - PSHx: 13:09 ovi mastectomy; hysterectomy; lr4 - Immunization history:: Adult Immunizations up to date. - Social history:: Smoking status: Patient denies any tobacco usage or history of. - Family history:: not pertinent. ROS: 13:52 Constitutional: Negative for fever, chills, and weight loss. ma2 13:52 All other systems are negative. Exam: 13:52 Constitutional: This is a well developed, well nourished patient who is awake, alert, ma2 and in no acute distress. ENT: Nares patent. No nasal discharge, no septal abnormalities noted. Tympanic membranes are normal and external auditory canals are clear. Oropharynx with no redness, swelling, or masses, exudates, or evidence of obstruction, uvula midline. Mucous membranes moist. Neck: Trachea midline, no thyromegaly or masses palpated, and no cervical lymphadenopathy. Supple, full range of motion without nuchal rigidity, or vertebral point tenderness. No Meningismus. Chest/axilla: Normal chest wall appearance and motion. Nontender with no deformity. No lesions are appreciated. Cardiovascular: Regular rate and rhythm with a normal S1 and S2. No gallops, murmurs, or rubs. Normal PMI, no JVD. No pulse deficits. Respiratory: Lungs have equal breath sounds bilaterally, clear to auscultation and percussion. No rales, rhonchi or wheezes noted. No increased work of breathing, no retractions or nasal flaring. Abdomen/GI: Soft, non-tender, with normal bowel sounds. No distension or tympany. No guarding or rebound. No evidence of tenderness throughout. Back: No spinal tenderness. No costovertebral tenderness. Full range of motion. Skin: Warm, dry with normal turgor. Normal color with no rashes, no lesions, and no evidence of cellulitis. MS/ Extremity: Pulses equal, no cyanosis. Neurovascular intact. Full, normal range of motion. Neuro: Awake and alert, GCS 15, oriented to person, place, time, and situation. Cranial nerves II-XII grossly intact. Motor strength 5/5 in all extremities. Sensory grossly intact. Cerebellar exam normal. Normal gait. Vital Signs: 13:07 BP 124 / 55; Pulse 100; Resp 20; Temp 98.5; Pulse Ox 100% ; Weight 104.33 kg; Height 5 lr4 ft. 5 in. (165.10 cm); Pain 10/10; 15:38 BP 95 / 48; Pulse 95; Resp 20; Pulse Ox 99% ; lr4 16:49 BP 119 / 65; Pulse 99; Resp 18; Pulse Ox 98% ; ss7 17:00 BP 119 / 65; Pulse 100; Resp 16; Pulse Ox 100% ; lr4 13:07 Body Mass Index 38.27 (104.33 kg, 165.10 cm) lr4 MDM: 16:05 Differential diagnosis: contusion, fracture, sprain, strain. Data reviewed: vital ma2 signs, nurses notes. 16:05 Counseling: I had a detailed discussion with the patient and/or guardian regarding: the ma2 historical points, exam findings, and any diagnostic results supporting the discharge/admit diagnosis, the presence of at least one elevated blood pressure reading (>120/80) during this emergency department visit, the need for outpatient follow up. Response to treatment: the patient's symptoms have markedly improved after treatment. 16:05 Patient medically screened. ma2 05/09 13:33 Order name: Lumbar Spine (3 Views) XRAY; Complete Time: 16:05 ma2 Administered Medications: 14:30 CANCELLED (Duplicate Order): Dilaudid (HYDROmorphone) 1 mg IVP once; RASS on ADMIN: iw Combtv4, Very Agttd3, Agttd2, Rstlss1, AlertClm0, Drwsy-1, Lt Sdtn-2, Mod Sdtn-3, Dp Sdtn-4, UnArsble-5 14:30 CANCELLED (Duplicate Order): Zofran (Ondansetron) 4 mg IVP once; over 2 minutes iw 14:55 Drug: Dilaudid (HYDROmorphone) 1 mg Route: IM; Site: right deltoid; lr4 16:34 Follow up: Response: No adverse reaction; Pain is decreased; RASS: Alert and Calm (0) lr4 14:55 Drug: Zofran (Ondansetron) 4 mg Route: PO; lr4 16:34 Follow up: Response: Nausea is decreased lr4 Disposition Summary: 05/09/21 16:05 Discharge Ordered Location: Home ma2 Condition: Stable ma2 Diagnosis - Low back pain ma2 Followup: ma2 - With: Private Physician - When: Tomorrow - Reason: Wound Recheck, If symptoms return Discharge Instructions: - Discharge Summary Sheet ma2 - Acute Back Pain, Adult ma2 Forms: - Medication Reconciliation Form ma2 - Thank You Letter ma2 - Antibiotic Education ma2 - SBAR form bd - Prescription Opioid Use ma2 Signatures: Dispatcher [employer] Delfina Canas RN RN Scott Cortez MD MD az2 Shannan Olson RN RN lr4 Corrections: (The following items were deleted from the chart) 14:30 13:33 Dilaudid (HYDROmorphone) 1 mg IVP once; RASS on ADMIN: Combtv4, Very Agttd3, iw Agttd2, Rstlss1, AlertClm0, Drwsy-1, Lt Sdtn-2, Mod Sdtn-3, Dp Sdtn-4, UnArsble-5 ordered. [facility] 14:30 13:33 Zofran (Ondansetron) 4 mg IVP once; over 2 minutes ordered. formerly [facility]
[2021-05-09 18:36] VITALS: TEMP 98.5
[2021-05-09 18:39] VITALS: BP 119/65
[2021-05-09 18:40] VITALS: O2SAT 100
== END 2021-05-09 17:35 | disposition home or self-care (01) ==
LOC: ER 12:40
DX: M54.50 Low back pain, unspecified (principal); W01.0XXA Fall on same level from slipping, tripping and stumbling without subsequent striking against object, initial encounter; C49.5 Malignant neoplasm of connective and soft tissue of pelvis; Z85.3 Personal history of malignant neoplasm of breast; Z90.13 Acquired absence of bilateral breasts and nipples; Z88.8 Allergy status to other drugs, medicaments and biological substances; Z91.041 Radiographic dye allergy status
CPT/HCPCS: 72100; 96372; 99284

== ENCOUNTER 2021-05-10 12:41 | Inpatient (IN) | payer OTHER ==
--- OUTSIDE RECORDS SUMMARY | 2021-05-10 12:55 | XMS REPORT | Continuity of Care Document ---
:[address] [facility] t Address [address] [place] [address] Care Team Providers Name Role Phone [phone] Primary Care Physician Unavailable Nile TEJADA Attending Clinician Unavailable SYSTEM, NOT IN Attending Clinician Unavailable Jasmina MUNIZ Attending Clinician Unavailable KAPIL Attending Clinician Unavailable DURAN BRAY Attending Clinician Unavailable BARBRA Attending Clinician Unavailable [...] Attending Clinician Isabelle Ramos MD Attending Clinician [phone] Lazaro LYNN Attending Clinician ANA PAULA TAVARES Attending Clinician Unavailable STEVE GARCIA Attending Clinician Unavailable Nile TEJADA Admitting Clinician Unavailable SCOTT Admitting Clinician Unavailable JAVI BRAY Admitting Clinician Unavailable LEONOR Admitting Clinician Unavailable BOOM CARLIN Admitting Clinician Unavailable NARGIS Admitting Clinician Unavailable STEVE GARCIA Admitting Clinician Unavailable Payers Payer Name Policy Type Policy Number Effective Date Expiration Date Vinny nava MEDICARE A B [id number] AET[employer] OPEN ACCESS [id number] 2017 HMO NAP 00:00:00 AARP MEDICARE [id number] 2020 COMPLETE CHOICE 00:00:00 PLAN 2 [facility] [id number] [address] [facility] - MEDICARE MGD 00:00:00 - Medical CAREWELLMED Center [id number] 2020-Present [employer]LL[employer] MEDICARE [id number] 2021 ADVANTAGE 00:00:00 MEDICARE PART A [id number] 2020 AND B 00:00:00 Problems Condition Condition Condition Status Onset Resolution Last Treating Co mments Source Name Details Category Date Date Treatment Clinician Date Venous Venous Disease Active [facility] obstructio 6-06 Bret kes - n n 00:00: Medical 00 Center Mass of Mass of Disease Active [facility] iliopsoas iliopsoas 6-06 Luke s - muscle muscle 00:00: Medical group group 00 Center Pyoderma Pyoderma Disease Active Overview: [facility] gangrenosu gangrenosu 11-10 Post Bret kes - m m 00:00: surgical Medical 00 Center Hip 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[facility] osteoarthr osteoarthr 8-15 Bret kes - itis itis 00:00: Medical [...] Stop Date Source Natural father Lung cancer [facility] Natural mother Diabetes [facility] Social History Social Habit Start Date Stop Date Quantity Comments Source Sex Assigned At [facility] Tobacco use and 2017-11-18 2017-11-[address] [facility] St Bret hendricks - exposure 00:00:00 00:00:00 [facility] Center Alcohol intake 2017-11-18 2017-11-18 Current drinker HOMAR Rodriguez - 00:00:00 00:00:00 of alcohol [facility] Center (finding) Alcohol Comment 2017-10-06 2017-10-06 SOCIALLY HOMAR Diop - 00:00:00 00:00:00 [facility] Center Smoking Status Start Date Stop Date Source Never smoker [facility] Medications Ordered Filled Start Stop Current Ordering Indication Dosage Frequency Signature Comments Components Source Medication Medication Date Date Medication? Clinician (SIG) Name Name folic acid 2020- No 1mg QD Take [address] [address] (FOLVITE) 1 -07 10-24 tablet (1 Bret kes - MG tablet [...] Take [address] e glycol -07 09- by mouth [facility] - (GLYCOLAX) 00:00: 23:59 daily for edical 17 gram 00 :00 3 days. Center packet polyethylen 2020- No 17g QD Take [address] e glycol -07 09- by mouth [facility] - (GLYCOLAX) 00:00: 23:59 [...] days. Max Daily Amount: 12 mg enoxaparin 2020-2020- No 140mg Inject [facility] (LOVENOX) 09-06- [...] Medi perla injection 00 :00 total) [facility] 12 (twelve) hours for 30 [...] mouth 2 Center (two) times daily. apixaban 2017-0 2020- No 5mg Q.5D Take 1 [facility] [...] Hospital Diastolic blood 2020-09-06 16:21:00 75 mm[Hg] [facility] Heart rate 2020-09-06 16:21:00 87 /min [facility] Body temperature 2020-09-06 16:21:00 35.78 [facility] Respiratory rate 2020-09-06 16:21:00 18 /min [facility] Oxygen saturation in 2020-09-06 16:21:00 97 /min [facility] Arterial blood by Medical Ce nter Pulse oximetry Body weight 2020-09-06 06:00:00 141.658 kg [facility] BMI 2020-09-06 06:00:00 50.41 kg/m2 [facility] Body height 2020-08-20 18:00:00 167.6 cm [facility] Procedures Procedure Date / Time Performed Performing Clinician [facility] CHEST WITH IV CONTRAST 2020-09-05 12:35:00 Vandana Tejada [facility] COMPREHENSIVE METABOLIC 2020-09-05 05:16:[address] [facility] 2D ECHO W/ DOPPLER 2020-09-05 01:05:[address] [facility] (CW/PW/COLOR) [facility] SARS-COV2/RT-PCR ([facility] & 2020-09-03 21:48:00 Tricia Ramos [facility] - REF LABS) [facility] CBC W/PLT COUNT & AUTO 2020-09-03 06:17:00 Vandana Tejada [facility] CBC (HEMOGRAM ONLY) 2020-09-02 04:36:00 Raegan, [facility] PROTHROMBIN TIME/INR 2020-09-02 04:36:00 [facility] CBC (HEMOGRAM ONLY) 2020-09-01 03:48:[address] [facility] PROTHROMBIN TIME/INR 2020-09-01 03:48:00 [facility] US CORE BIOPSY 2020-08-31 18:48:00 Vandana Tejada [facility] TISSUE EXAM 2020-08-31 18:37:00 Vandana Tejada [facility] VITAMIN B12 AND FOLATE 2020-08-31 04:45:00 Vandana Tejada [facility] CBC (HEMOGRAM ONLY) 2020-08-31 04:45:[address] [facility] PROTHROMBIN TIME/INR 2020-08-31 04:45:[address] ABDOMEN/PELVIS WITH IV 2020-08-30 10:28:00 [facility] CTA AAA AND RUNOFF 2020-08-30 10:28:[address] [facility] BUN AND CREATININE 2020-08-30 05:17:00 [facility] CBC (HEMOGRAM ONLY) 2020-08-30 05:17:[address] [facility] PROTHROMBIN TIME/INR 2020-08-30 05:17:00 [facility] HC ARTERIAL DOPPLER LEG 2020-08-29 16:05:00 [facility], Tricia [facility] UNI [facility] CBC (HEMOGRAM ONLY) 2020-08-29 12:50:00 [facility] HEPARIN [facility] - LOW 2020-08-29 12:50:00 [facility] - MOLECULAR WEIGHT [facility] CBC (HEMOGRAM ONLY) 2020-08-29 05:03:00 Raegan, [facility] PROTHROMBIN TIME/INR 2020-08-29 05:03:00 [facility], [facility] BUN AND CREATININE 2020-08-28 16:37:00 Traceyernh [facility] - W/RATIO [facility] VENOUS DOPPLER LEG, LEFT 2020-08-28 12:43:00 Gadicherlakhwinder, Tricia [facility] CBC (HEMOGRAM ONLY) 2020-08-28 04:42:00 [facility] PROT[facility]/INR 2020-08-28 04:42:00 [facility] SARS-COV2/RT-PCR ([facility] & 2020-08-27 18:10:00 GadirvinernhHumbertoal C [facility] - REF LABS) [facility] PROTHROMBIN TIME/INR 2020-08-27 12:22:00 [facility] CBC (HEMOGRAM ONLY) 2020-08-27 04:06:[address] [facility] PROTHROMBIN TIME/INR 2020-08-26 11:47:00 [facility] CBC (HEMOGRAM ONLY) 2020-08-26 11:47:00 [facility] CBC (HEMOGRAM ONLY) 2020-08-26 06:00:[address] [facility] PROTHROMBIN TIME/INR 2020-08-25 18:11:00 SunKinga [facility] CBC W/PLT COUNT & AUTO 2020-08-25 14:27:00 [facility] CBC (HEMOGRAM ONLY) 2020-08-25 06:58:00 [facility] AP[facility] 2020-08-25 06:49:00 [facility] APTT 2020-08-24 22:45:00 [facility] 2020-08-24 12:42:[address] [facility] BASIC METABOLIC PANEL (7) 2020-08-24 05:41:00 Boris [facility] CBC (HEMOGRAM ONLY) 2020-08-24 05:41:00 Hari Carlin [facility] APTT 2020-08-24 05:41:[address] [facility] AP[facility] 2020-08-23 21:14:[address] [facility] CBC (HEMOGRAM ONLY) 2020-08-23 14:11:00 [facility] 2020-08-23 14:11:00 [facility] VENOUS DOPPLER LEG, LEFT 2020-08-23 12:46:00 [facility] BASIC METABOLIC PANEL (7) 2020-08-23 04:08:00 [facility] CBC (HEMOGRAM ONLY) 2020-08-23 04:08:00 Hari Carlin [facility] BASIC METABOLIC PANEL (7) 2020-08-22 05:37:00 BorisTom yoon [facility] CBC (HEMOGRAM ONLY) 2020-08-22 05:37:00 Hari Carlin [facility] US EXTREMITY NON-VASCULAR 2020-08-21 14:30:00 Hari Carlin [facility] CBC (HEMOGRAM ONLY) 2020-08-21 05:50:00 Hari Carlin [facility] COMPREHENSIVE METABOLIC 2020-08-21 05:50:00 Hari Carlin [facility] PROTHROMBIN TIME/INR 2020-08-21 05:50:00 Hari Carlin I [facility] XR HIP 2 VIEWS LEFT 2020-08-20 18:25:00 Hari Carlin [facility] XR LUMBAR SPINE 2 OR 3 2020-08-20 18:20:00 Hrai Carlin [facility] XR KNEE 3 VIEWS LEFT 2020-08-20 18:14:00 Hari Carlin [facility] CBC W/PLT COUNT & AUTO 2020-08-20 15:02:00 Hari Carlin [facility] COMPREHENSIVE METABOLIC 2020-08-20 15:02:00 Hari Carlin [facility] MAGNESIUM 2020-08-20 15:02:00 Hari Carlin [facility] PHOSPHORUS 2020-08-20 15:02:00 RaeganHari [facility] LACTATE DEHYDROGENASE 2020-08-20 15:02:00 Hari Carlin [facility]) [facility] URIC ACID 2020-08-20 15:02:00 Hari Carlin [facility] Plan of Care Planned Activity Planned Date [...] Medica l Center colon (procedure) [code = 211800987] Future Scheduled 2018-11-[address] [facility] - Test 00:00:00 malignant neoplasm of Medica l Center colon (procedure) [code = 212336486] Future Scheduled 2018-11-[address] [facility] - Test 00:00:00 malignant neoplasm of [facility]ica [facility] Center colon (procedure) [code = 659663084] Future Scheduled 2017-10-[address] Bret kes - Test 00:00:00 measurement Medical Center (procedure) [code = 59182179] Future Scheduled 2017-10-[address] Bret kes - Test 00:00:00 measurement Medical Center (procedure) [code = 26605452] Future Scheduled 2017-10-[address] Bret kes - Test 00:00:00 measurement Medical Center (procedure) [code = 96675459] Future Scheduled 2010 SHINGLES VACCINES (1 [facility] [...] s - Test 00:00:00 (procedure) [code = [facility] 72117046] Future Scheduled [address] [facility] - Test 00:00:00 (procedure) [code = [facility] 49744936] Future Scheduled [address] - Test 00:00:00 (procedure) [code = [facility] 45453261] Future Scheduled [address] [facility] - Test 00:00:00 malignant neoplasm of Medica l Center cervix (procedure) [code = 668061679] Future Scheduled [address] [facility] - Test 00:00:00 malignant neoplasm of Medica l Center cervix (procedure) [code = 979223811] Future Scheduled [address] [facility] - Test 00:00:00 [facility] [code = 414541146] Future Scheduled 1979 DTAP/TDAP/TD VACCINES CH I [...] 00:00:00 examination Medical Center (regime/therapy) [code = 401116903] Future Scheduled 1970 Urine screening [facility] - Test 00:00:00 protein (procedure) Medical Center [code = 509082331] Future Scheduled 1970 DIABETIC EYE EXAM [facility] - Test 00:00:00 [code = DIABETIC EYE Medical Center EXAM] Future Scheduled [address] [facility] - Test 00:00:00 examination Medical Center (regime/therapy) [code = 849468087] Future Scheduled 1970 Urine screening [facility] - Test 00:00:00 protein (procedure) Medical Center [code = 169058127] Future Scheduled 1970 DIABETIC EYE EXAM [facility] - Test 00:00:00 [code = DIABETIC EYE Medical Center EXAM] Future Scheduled [address] - Test 00:00:00 examination Medical Center (regime/therapy) [code = 508910652] Future Scheduled 1970 Urine screening [facility] - Test 00:00:00 protein (procedure) Medical Center [code = 167956646] Future Scheduled [address] [facility] [...] Medica l Center breast (procedure) [code = 842124272] Future Scheduled [address] [facility] - Test 00:00:00 [facility] breast (procedure) [code = 834501115] Future Scheduled [address] [facility] - Test 00:00:00 malignant neoplasm of [facility] breast (procedure) [code = 566330642] Encounters Start End Encounter Admission Attending Care Care Encounter Source Date/Time Date/Time Type Type Clinicians Facility Department ID 2020-12-24 Inpatient ER BLANCA, [facility] [id number] [facility] 00:09:17 VANDANA 2020-11-21 Outpatient SYSTEM, JUAN MARTINEZ [id number] 11:08:21 PROVIDER Holland o lashonda 2020-11-02 Inpatient THEA MUNIZJUAN MDA [id number] 23:20:41 GAURAV And erso R n 2020-11-02 Inpatient EL MUNIZJUAN MDA [id number] 23:20:37 [facility] And erso R n 2020-10-28 [facility] [id number] 00:00:00 Encounter [facility] 2020-10-17 Outpatient SYSTEM, JUAN MARTINEZ [id number] 12:21:12 PROVIDER Holland o lashonda 2021-05-09 2021-05-09 Outpatient EVA NELSON MDA MDA [id number] 13:35:48 15:28:02 Holland o lashonda 2021-05-09 2021-05-09 Outpatient THEA BRAY MDA MDA [id number] 11:00:00 11:00:00 RONALD Juarez rso n 2021-04-03 2021-04-24 Inpatient ER BARBRA DARLENE MARTINEZ [facility] [id number] 15:10:00 12:50:00 Holland o lashonda 2021-04-23 2021-04-23 Inpatient EL JUAN MELISSA MDA [id number] 04:19:54 04:42:38 BRENDAN Lino o lashonda 2021 2021 Inpatient THEA VILLAVICENCIO MDA MDA [id number] 17:08:59 17:35:08 SHOJANAE gallego 2021-04-18 2021-04-18 Inpatient THEA MELISSA, MDA MDA [id number] 09:21:00 09:41:51 BRENDAN gallego 2021-04-17 2021-04-17 Inpatient DARLENE SHIN MDA MDA [id number] 03:37:16 03:55:45 Holland gallego 2021-04-15 2021-04-15 Inpatient DIONTE, MDA MDA [id number] 22:08:23 22:34:52 BOB gallego 2021-04-13 2021-04-13 [facility] [id number] MD 08:40:41 09:10:01 BOB gallego 2021-04-11 2021-04-11 [facility] MDA [id number] MD 02:08:42 02:31:26 BOB gallego 2021-04-09 2021-04-10 Inpatient PRISCILLA, MDA MDA [id number] 23:08:04 00:00:29 BOB gallego 2021-04-09 2021-04-09 Inpatient PRISCILLA, MDA MDA [id number] MD 17:32:06 18:10:07 BOB gallego 2021-04-08 2021-04-08 [id number] 18:04:44 18:36:32 BRETT Abarca so lashonda 2021-04-08 2021-04-08 [facility] MDA [id number] 15:56:48 17:31:59 BRETT Abarca 2021-04-08 2021-04-08 Inpatient REINIERLAMANCHW[facility] MDA MDA [id number] 15:56:44 17:31:57 BRETT Abarca 2021-04-06 2021-04-06 Inpatient THEA CHAVEZ, MDA MDA [id number] MD 13:57:21 14:18:48 SUE gallego 2021-04-06 2021-04-06 Inpatient THEA VILLAVICENCIO, MDA MDA [id number] MD 11:21:56 12:02:57 BIJU gallego 2021-04-03 2021-04-03 Inpatient EL SCOTT, MDA MDA [id number] MD 22:23:50 22:40:30 SUE gallego 2021-04-03 2021-04-03 Outpatient EL MUNIZ, MDA MDA [id number] MD 14:49:10 15:17:14 GAURAV Ferreira derso R n 2021-03-06 2021-03-06 Outpatient EL NICK, MDA MDA [id number] 13:20:00 23:59:00 KRYSTA dupont n 2021-03-06 2021-03-06 Outpatient EL ASAF, MDA MDA [id number] 12:54:39 13:19:00 CLAUDIA gallego 2021-03-06 2021-03-06 Outpatient EL MUNIZ, MDA MDA [id number] MD 09:00:00 12:53:00 GAURAV Ferreira derso R n 2021-03-06 2021-03-06 Outpatient EL MUNIZ, MDA MDA [id number] 10:05:13 11:24:37 GAURAV Ferreira derso R n 2021-03-02 2021-03-02 Outpatient EL ASAF, MDA MDA [id number] 11:00:00 23:59:00 CLAUDIA gallego 2021-03-01 2021-03-01 Outpatient EL ASAF, MDA MDA [id number] MD 11:57:34 12:10:03 CLAUDIA gallego 2021-03-01 2021-03-01 Outpatient EL MUNIZ, MDA MDA [id number] 12:08:46 12:08:46 GAURAV An derso R n 2021-02-20 2021-02-20 Outpatient EL MUNIZ, MDA MDA [id number] 12:57:43 17:49:39 GAURAV An derso R n 2021-02-16 2021-02-16 Outpatient EL MUNIZ, MDA MDA [id number] MD 08:46:05 08:46:05 GAURAV An derso R n 2021-02-16 2021-02-16 Outpatient EL MUNIZ, MDA MDA [id number] MD 08:46:01 08:46:01 SHRCHAS rosalesso R n 2021-02-14 2021-02-14 Outpatient EL NICK, MDA MDA [id number] 16:13:03 16:13:03 KRYSTA Boaz so n 2021-02-14 2021-02-14 Outpatient EL NICK, MDA MDA [id number] MD 16:11:50 16:11:50 KRYSTA Sandra so n 2020-10-28 2020-11-03 Inpatient UR MUNIZ, MDA [facility] [id number] MD 08:47:00 13:55:00 CLAYCHAS rosalesso R n 2020-11-03 2020-11-03 Inpatient EL MAYE, MDA MDA [id number] MD 08:41:05 09:10:15 BIJU gallego 2020-11-02 2020-11-02 Inpatient EL MUNIZ, MDA MDA [id number] MD 22:10:35 22:18:01 GAURAV Hanna rosalesso R n 2020-11-02 2020-11-02 Inpatient EL MAYE, MDA MDA [id number] MD 17:03:33 19:31:59 BIJU singleton n 2020-11-02 2020-11-02 Inpatient EL MUNIZ, MDA MDA [id number] 08:16:22 08:26:03 CLAYCHAS rosalesso R n 2020-10-31 2020-10-31 Inpatient EL STEFANO, MDA MDA [id number] MD 15:19:32 21:47:10 BAL gallego 2020-10-30 2020-10-30 Inpatient EL MUNIZ, MDA MDA [id number] MD 04:31:13 04:49:40 GAURAV Hanna rosalesso R n 2020-10-29 2020-10-29 Inpatient EL STEFANO, MDA MDA [id number] MD 18:24:24 19:40:21 BAL gallego 2020-10-29 2020-10-29 Inpatient EL SCOTT, MDA MDA [id number] MD 18:24:28 19:36:56 SUE gallego 2020-10-29 2020-10-29 Inpatient EL SCOTT, MDA MDA [id number] MD 10:00:26 10:24:36 SUE gallego 2020-10-28 2020-10-28 Inpatient EL SCOTT, MDA MDA [id number] MD 22:30:59 22:52:26 SUE gallego 2020-10-28 2020-10-28 Emergency EL KATARINA, MDA MDA [id number] MD 10:57:00 11:46:41 BRENDAN gallego 2020-10-14 2020-10-23 Inpatient ER SCOTT, MDA [facility] [id number] MD 16:40:00 16:38:00 SUE gallego 2020-10-21 2020-10-21 Inpatient [facility], MDA MDA [id number] MD 18:46:01 19:27:32 BOB Lino o lashonda 2020-10-21 2020-10-21 Inpatient [facility], MDA MDA [id number] 14:16:27 14:16:55 BOB Lino o lashonda 2020-10-20 2020-10-20 Inpatient [facility], MDA MDA [id number] 20:10:36 20:13:24 BOB Lino o lashonda 2020-10-17 2020-10-17 Inpatient MAYE, MDA MDA [id number] MD 15:00:32 15:42:49 BIJU gallego 2020-10-16 2020-10-16 Inpatient [facility], MDA MDA [id number] 09:18:38 09:49:47 BOB gallego 2020-10-15 2020-10-15 Inpatient [facility], MDA MDA [id number] MD 11:01:50 11:06:18 BOB Lino o lashonda 2020-10-14 2020-10-14 Emergency EL LEONOR, MDA MDA [id number] MD 19:53:40 20:54:56 ALEXYS gallego 2020-10-14 2020-10-14 Emergency EL STEVEN MARTINEZ MDA MDA [id number] MD 17:59:26 17:59:31 Holland gallego 2020-08-20 2020-09-06 [facility] ER Vandana Tejada [facility] [id number] 13:34:00 17:17:[address] [facility] Bryant Willis 2020-08-20 2020-08-20 Travel [facility] [id number] [facility] 00:[facility]:00 00:00:00 [facility] Results Test Description Test Time Test Comments Results Result Comments Source Tissue Exam 2020-09-14 10:56:00 Test Item Value Reference Range Interpretation Comme nts Case Report (test code = 104) Surgical Pathology Report Case: [id number] Authorizing Provider: Vandana Tejada MD Collected: 08/31/2020 06:37 PM Ordering Location: [address] Received: 09/01/2020 08:13 AM Service Pathologist: Thien Radford MD Specimen: Groin, Left, left iliopsoas mass biopsy ADDENDUM (test code = 3381) [id number] wUIoiwPPcxzKege79yQH6uJ69HB6mCFYpCoV6FY EuojM3Axk9UQNsETSpgYWyR028e8szo3ceixWid JU7tYerVVTsOUWuPNhxEEBpIzKgIQ3cvB9lrTbw fJ4knLKtlBAotIVwjUUrcIWtGXZqyyTvpc9rTTB qkpXaxW3oqiFHDUEaZQ8vxzU6vpU5YSY2sUHsie RemGpwa4OeJsZeJKlwpjK9bzTtYITfv5MzmRp6K UCnt7ZsG8AkCH9hCNacyMYnfbGgotZmTVXmchWj Bd1rCUqlmhH4cF9vBNSrLUZeIWLkr02bfnvxRN0 ELLLucB3wbKrjiVUsY5gnWDUdqNzjUSzANGGpJB TUCIP9XXBowoKbT2ZYAYZaBQPsh8yhHtVeLCNhz bJztP7yWAvxZentO9ciLwquxBRwivRmtMPzkHGa PVSsdztdcwcvPsDtwKCxUWQ7vuZ9HIMvFLyuCVN jpARjNTLvJEDaJI1hoGIlkReeCGEbhRyyMMGtEG BtwzAbUGZdy24urBUecDAnuYc5v0qzWJApFDB5q lMkHQSoWYMlIGEqRTMzwDYpPL5vJRApCDUdgiXo kXRlOyWJhDXsRCOhtbVysg2zfrZoAIdzuAMgldU ugZIeqBHxmEf4q0ZkZoGneBg8ctMpFCGoOZVelm FpMVwfc7V5VJMryRqsjrJuhSOpNR2zDOPcCONkE iJhXPEsx4Lgfv5zgHNaPKQaunSGsmHmEOlnWPJ5 kEPwhjJ9zDFfQO2sNKFeDTDlBCYtj92vwOPbsO2 iRWDvmy3pyvY4JDXbz0xdydGmWWmoZEGhvf7lLH GqdY7pZxPtdUMhlQpzLD76WxhbRGTuwDAdTVKaw BWrE9MeJMU2eKcaVZLtRMIgFtJyueAgPTNpUM3M BQGzERMbr89hTPWrjoQob41zeNk0ATWge65lLHZ hENWiBKWwHUXbYWMpmI7wjXF8sBdjTCJojPkfsn 2tlKFkFNObloOIhhXzPZUhdHSjwV6kpiEfhWVgH AReWIm8UCUwPbRSfK3eWZFdYW0qK4cuIAdmweos YXJ9 DIAGNOSIS (test code = 3220) z9bzlEVcVHLyh1pzZVYgvRSbViLnJmCzPhNdVr p cdWMxIHtccnRmMVxlcGljOTIwMlxhbnNpXHNwbH WzQ9XotyuwOFxzYG1xHL4ehAuifBTrgOPeWYNrN fHmc8vxx699lIRfz4sbTLFYqjuicLp3jUqrO40y k1O5EfezK67vkMOsHQqrgZUpsdusurJbRVQGDkM rOBVFFNLDAOeRYV4LN75CLxVKEDHBHEKLTX6MW8 y9YQKxugIRGEvQQFbFVIPJDQpeLxJGYWsGM15qZ ANcxtZLZH4GKGVOEfNGVcQVQCUJANgFKnKGXT8Y QN1ECRjCAMKNL5GFJI3PHHuRXS6LKanfAVQfBGW BYP1GCH8vNlBLF1OTOMNYVXBVOIfVFn5jHCReky 39UJM0DbUgf0C8QGC3VHHrQCWoz5oyZEIufUMfD dDfNoQiAlYzCqgdfNHeGRPxCpZow7fer337pRXg u8buWVGuRvR6fGYgNSCsqEBpI634KLGpXYmkm2r uy0LxBGLouNQzo3Z3KPJDidszpHq6jArwS00eu7 V7FreuU4scIKGuJBClT8RjKJ6mPEClIke8EFE3G SO6JBJgODFjP3PkON9fQTMtvOBwTZw4t4xblVdu YFWzATY8f7vbYGltqiDcPH5kfi1ukFs1a7pqrfY jBWIeENMacQMYZFLeC4QdvDoxRo7avZq8bVloDe yxXFY6Smr6NO8mgi06gyy6nQbxQJEtomswSdA0G FwkCLUwwyprWGw6OBxgNVBxfIR8ZXXbfQYwM3Gy FUAkSX2fiet2ZEH4UYzzVJCpXaQ3CMFtdTDzYZB nrMmgSSnqy151XRU2LmUlTB5yJ3Fza1S1pC3woN FoZNEsyCQgFfVxCAAysq0mmJCpJSfio4SzMQJ0r tJ2tXHzkKYlEGLqNzA8PYgtLE1ffk75PCMxYHR7 pm3jsQKgvDxiasSaxQEgJOsxH9MuPLCqr110MIL yA4OhYDWge4M3kfZjWtHyJMXidSK3hcO1SUJmLX 2wlikts9ilJKpuMGjfSZYcsfY5vdH1DWDdpYDjD 0GryW3eYVCgEP2otwiam8dqADI6UNouFWTsKKK6 PjQnYXDum1Yfmmj0VbKlk2FtgBSmYOrqW77hg30 2OKNeouOoT2ntyXDxgkzywHIpafhsQBrsocF8RN IuKDjdxbsvBOKsGIgnZ1mxHxWwLWKbkPwoCQeoa 0YiZNMvDJIbKcTggKUnEHQwEqr2ITJdgSXwISIb EoNhO5runkkhLtJNSFAut4syU8ecbHAPjCZkM5M oIQjgjyYeDBotRKbhSHLxIRQ3XA29JWfdCVIkml 19 CPT Code(s) (test code = 4617) p1dqbLQbSLTfiDT5OkXlGSClp5any6JzyGCg cGF nPYgzhZRdfhQkbi99yOT8gQ97HI1tERDwWpF0VU VllxE6Dzm5HNBgLACloOWiL780g4jbn6tmgnFjt MF7kGufXXOuQVWuJRzdRDReStScAKtrTRNiKXy2 JkFbRSS5ENW0JBk8GOMfcf5= CLINICAL HISTORY (test code = 4976) l5yngMSeODUyyJY3BnYoADOvd8jem1L sdHBncGF lQCpaoODgujPuaz39sVN3sZ61SF4yXGGhCtA7KF JlqkV8Lek2DCJiIKMvjHWmT489x2sty7hnleOpa YI6oSmoCSXwHHVuEIteFTXyAyUbJLDziCRubi5a jnVviNM4V7bnzC8zb10xgwKuEENzKZJ4JzTrwYK 6RfJoaAYvDQKqFDawHQO4 SPECIMEN SOURCE (test code = 3377) h7sbvSQdPKGalND9LqJxNTHgl2uxh9Rw dHBncGF vNLwlcVGrknNtht48fUF0uY77ZR5jXRZzHeG3OP AxmeJ9Wmr5EMMbRCNlqJVrL558k8azs7tuwxDtp MO2mMymVMMpTQLlIOnlWUJvCdNfDGPsqIHred8a sl1gsJicjPCeRBRkjDIckN== GROSS DESCRIPTION (test code = 3366) j9zhoQJbHCYhyMTlZpFkIYCnHLOma4 lcZGVmbGF xPgByZvWyRbMzJzewqUZcHROrXaVtz8dxf187jD Glu8zsJELNykkxmAw8i5rcJRImMdH4lWIrIGhfB 4gsdnQkbZEiZVWqQFl1zD75UHOysY0dnHUrQJwz kfBsBrS4MPvyXUOeHfA6TPCipZXmDZFhC5ifVNW sMQsgGKRqOZrmkZQtAGB0pComx9J2cGIpcNSywT krXsQcAcRfRLGAw8NrSHy6rAdnC4UaRQMeCeW3s SJcYPQeFNcyDHNaVGCwswV0lU96DHoexpP7rTQt m9Kpo46kr132hZ0wrFOhYYH9MEXqHTFcoPAnFKC aGGZ6WHUcsVLmB2p3GpDzzTOeL5W2PtOpyGHlW9 N9AfFqmBIxK8I4DrIkkKQcHUZosKQdEf3vuVGyp OPuxt2gkp86QRL2h2NilOruXIC7YGH1GxPpPq4m iSEzPJCxMTHkuIRuSVTsQA1kvOWpRKRfjU3xwzp pXBVlIwUoicvtVWCbjTqwaeReGr0vzTsvOKL0IM olS7zxwK0tKvR8FWhuA9vveL0rSRn6RMsgqJM4E HCcwT4uPP1yzmgsu0dxQeCrAB0wrqxry1swZeMx SV9divf4o1uwDaTmLR0tvfodh2chYjYuXUbpDLJ cgtjyAKYzu0IfdvpcSVEpa2TtH7IcuYujP46jeV xjC89xWWIrnXwvlY2joZnxgM1sGaBsNfWqGSwuV XJkXHBsYWluXGYxXGZzMjBcbGFuZzEwMzNcaGlj nGqjYFfxYaUrZKDmYQdnO6ctUoOgIyVaXHAWSbF ROORpiGHqTKAuvhAhi9CcAZmtqaOuOBOskFZqHV rhoVjtfPglZIRhySgtkaTjE0A3hdWjDI6vHLRpV QYpD2PpBMUgI76tWPFxbA3bMWGbNS5lRJEqry4h cbiswENauLSxAW4dYVOqmcBzm5JkBB9pAP53kMT zaPkwYAxsZReit5yjzOOca07xjBG7pQRkiDBsB4 8vKSVvfeLuI1xvXuDtIgGsNA7jXDIlGHziBZcrg gu9vYBrvYZjoSU1UVBwsW4wxN59qlGlnxVMGO5i bUpwBYhuqJ1iIYAwGHgrJSXuI7RyiI8kPW7VFsd cVIVpQEJYT4CtP45bnFPxcR== MICROSCOPIC DESCRIPTION (test code = a5vnxBLrVKNmkBJ9SeOuEYThk2ucl8 BsdHBncGF 3371) gAHlljXCxnnWekd38rWL8aZ87IN2iVVTiFzW1GJ EsmgK2Qpq5KEQrGGPiyMJsZ261m9kox7enuqBuq QZ2uVkdRJKgTIIaIGinXWVkXaUrJLJMOn1RXTES XHBhcn0= SPECIAL STUDIES (test code = 3376) c1rubLXkHWBllSR2EcYsIEEcn9zry5Hy dHBncGF bXEzdqYKzhyEbcf70eUT9oV67RA8sIHBdLbX5UL KzvsK0Hxv2GKPeVWJjcBPyM590KFVsBQQdxPiai kt9xU98OIWspF8oeNAiNQe1PUCgexFdaKexfM5h HgVxRxQgWxIExVLeyI68EPIgohE0IOXbh03vg0W kyXepntOeZYRuATgdF4t4OZGoWOUzVNC3r6Mfy4 RicJ8yoO5wwUbouA6bqRBbfXU4jsllj9Tqd1XhI 9rtnDCucQIxqtUnYWIsygSGZK6DKsYYHV4bQ6ZX CDGAJrizPyZhUKexWVEXBEtAZZOLOCI4YCLUUCB sUJOOVOknMKPwQ81obPYkcUMGaUsqOEVzMEnjeY mfCPX6XEKIob6vs1VmXQLxgh10ioEsg4StgLq6R LOam180iq8vsgP6IFCzWHX2LCi8XWJdOKEflN1g QrO2zTYgHSWhJXJ7GSY8BKNei2G0YF3bLGIfRMK lWYXdblLpv3lip4evURUuWCW8rmSgcS3bR4LcNS Yks8ZctPbhQEDieTuxyeIvBNRvzJOqVZCdfX22W VHcyUCliNYwBCQbZSO5UCmjkV8oIhIMioYyuo3e rSLfl5HawPn7HFXuntApdyEdQRAvctZbX95vrPC ttJYlt5vdbnThjdEkjZTnuCZhLKHfVHH0MVx5HV ZcPPmbUBEkSSvkANUhEM6onA7jpTpbeN4umJLmf OR9skedkIBscY4qX3DqDBQiy2Pvmelqi1LtIHLt vvTbgz4dYRNxgTQVDTlru6KbZ7ArVSg6k4NnxFk jPWypOAn4UwPhLRZrxBHbxYJZWU37AJAxEJYggZ pwqZ2mhAQBFXVddjW3o7X1OWrtBTMuBMq4BCnjz bBdLVRryJ8jBDHiGX7sZMk2tsDnBCLii6GrOP2z IRWueGTfWKN8AAQhy3HtT7Cfm0QmFTAuDIKbgr3 ykhXaMxFBlRMwOAWywu44SEMeEH8dW3gaIUKyAC WcmqHajYPfg1VfPXJujOZ8mXHuJX4TYxOBo67bA BIxMGWHqgAcNLPliHqxdBM9gcA2xE0aBbEPvCKm MhGJOMydkzTuIDKsnt1vmeNqTBXxSIFsj6QqpUH jcSPiinYfC8Qba9CpLECryc50WQkdhNUkpi03EX 0qD2Odd9GqiF3cFRmkVNKmh1FtoVUobFYqOKErr 3HuU7dsrescKUsqsOTylO0tHMXfYSg9NMTcw4Cc VRGyj0NbJrBvfjQwATNrERNoRFSktE98VFU0wZt hqKcponNtMX9aHIBpzfYhIRJkRYPylM8fJQemzh LcCMDhulO0f9P3BMyuHEQbwbIhSlsvGOK0pzPev uN3tSAeH6kqjekvCXpgUSApp0ZjuQ8cpAOWhPJl c6RdpXRsqVDAgPAaKR6efbZpEM6wUBW7JCwxBOL WZEByGBtqYHMfUYE3XWsxAyqkSKY4cuSgYPIob1 IoNUnmX9ixG69rdMgpuXc3xSMqmHgqlRLvgJCjT YZiqkC7g0P7UAJyd3AknhlwMVAqdh5= Gross assessment was performed at (test [facility] enter, code = 2777) Department of Pathology, [address] [place] [address], Technical component was performed at [facility] er, (test code = 2778) Department of Pathology, [address] [place] [address], Professional component was performed at [facility] enter, (test code = 2779) Department of Pathology, [address] [place] [address], [facility] [id number] 10:56:00 Test Item Value Reference Range Interpretation Comments Case Report (test code Surgical Pathology = 104) Report Case: [id number] Authorizing Provider: Vandana Tejada MD Collected: 08/31/2020 06:37 PM Ordering Location: [address] Received: 09/01/2020 08:13 AM Service Pathologist: Thien Radford MD Specimen: Groin, Left, left iliopsoas mass biopsy ADDENDUM (test code = [id number] 3381) Jtc8btz6BcfXVkgILcXRsm uKCnznJamo62cLC3zN59NF 6aROUcEwE3CLTrhbH8Sca0 ASYmEPKxaRLtS799o6xhk0 gfhiJypCN5qTvfFAOwJPGe IIezVCXpLmSzJU7oyN2prC tmbW6ssAKwmMMdsORytIPc oXUbMIGiiwNhfi5vFWIchm XgsO8ayqVLKTAzLO0oleC5 msC8YON1bMWfnpSyvYazy0 JiArYvFInsznJ9vfMgVSSo i1VeoRj1OLZsj5QwG8OnTS 4gVGhleSBhcmUgbmVnYXRp guEiSe3bEGrvypL4dJ0gUG MpMZRtHFWwy05keqsiZG0L CMGupL5stFnuqOGxR3waOJ FjdGluIChTTUEpLCBNVUM0 GRQmruXhL1UWKGHiVAGfv7 nfWvVqCREgrfYvbS0gRAof NjvlJ2nuJrelsYPhwbLibZ FibGUsIHJhbmdpbmcgZnJv dDIzFVY8tuO3VFHmZInkDU UzsOTgWWOtEAFaVY2ewJQt dGljIGNlbGxzIHByZXNlbn IbXSBcf31ztIOqyWYipUe2 c7weHTFlUHZ6iwCpCOMvJU SnHCZsBMFgvZYjMU8vHRFo ZWQgbnVjbGVpLiBUaGVyZS NfroVmtq2glqCsFGmidRUi xeOrfSRnxONjuXc0v6WiLh YruBm8yqXdFUEiVTXrbxAk IUzcy7I8ZGXhwJyqcnOlxR VrFE9dBEXoVYCqEqGsQTNr j2Zgbd5apDErHQHfflHNrr TcTEnuLFH9jBDlclY4pTGw UX7nQUFhSKNtVRAwk08xqR OajD4hGAEyml9hhvR5GFHa m4yhikOwDDzuVBGsak9aQB WihL6tGiDtvNXxaRuyFZ57 LlxwYXJccGFyIFRoaXMgY2 RzQQB0kFynPVOmJVRfMaUo isOaWITdLB6PCPVhOQAih9 3lJXFamkYmq77qqLq3SAIy l32dSYIiAZJcGAEiXTLrLI UjeA8gdPE9jItyKZQajMbv uk0wnDMzOLCotkBEryVrRZ ZbvIRyeK2smrYsaKAjOTXo CTd1TQKhDbVHcZ2bHXJzAV 3qJ5pvQLzipghwWNZ1 DIAGNOSIS (test code = a3jphXQqENGiu7pqOGGdyP 3220) FuZzEwMzNcZnRuYmpcdWMx IHtccnRmMVxlcGljOTIwMl duhvHyYDAosSDyQ7Lbyyww TQjcOP9pXD6vqClnpJRndQ VbGOAjHbXvc5sxx611nDKk c2bxGDYXghuupXz2iPxrJ0 1mx9B3EsyeP32kbNEkQAiu bGFpblxmczIwIFBBUlQgQS SAIIATNYhDDX9NG18ISwHX BQASTHBZCJ0ZA6b6WHRjjq BTUElORExFIENFTEwgTkVP MKuAC45zUOFxobFCVJ1SVA BJTlRFUlBSRVRBVElPTiBQ DL5MOX7THLzDXFFIB1KECO 4YLOuFWF9IHkclMVLeMQLH GH1UXB7rEeWIB7XVEYJBBC TIYUuKQi6cNCAcyr12DHW3 YeCxl8W9IKH2KOMmFHAbg7 lcZGVmbGFuZzEwMzNcZnRu FihesNXvXWPcJnDmi6eaw1 29zMVpw9keARCqVlI0kIBq QFTpaXXiN403EBVcGHnps8 tnr1KdYEAiyCTrz9X5RGLE rinpyJo6cZlbE59rz0Y5Mj jrT8rtCMDyJUYgI8NoBL8s HVWkMba4IFT7NLL8DRCbSZ NkP4PaPN4aNYOogVDvRBl3 b5aswSipRREpMLW7j5jaZL zmwzXzBE7ddt4goTt5p9lk czEgRGVmYXVsdCBQYXJhZ3 DdePnyJf5tfYv9oDwtPxdm OSO6Fxq7YA3ubw55dnp6tE olPGYdzorhIgW6FKbnNCKh uaonMYc2WYqzDWDkaXR5FG NmqWBpA1XwUTArGH6uoth9 QAH1NWfiMCUlXoF4KGTaqA FlOCGmcBmcYTlvo082YNH7 GmYtWC8hO4Qbw2M1nU0pzI IxHMFinCFsFbAiMVRxhu7x pZHgGBluy7VkXPF0irZ2yD KdyLGlADPpMmO7SLiqTO3y kn00IVDtFAM6kt0ouABeuY rjaxRroFSaBAhvQ0AcBENr e431FVAaN1CnLEYbe9X5ir KoDaRvTUUrlCT1alG0ZLOs SK4irhjmt2ykLYhgSPicZE OkbuK9qkQ7GTOtvUGxI4Qx kS4zDTDhWW6zwdboi9vuPQ U5IXdlPHMjEUL8IbKyVJOf t5Qdmzb6RxHtx5FkqHWpAN haY86fe595GMEbdbMnS0oi bGFpblxwbGFpblxmMFxmcz S4PHBsFGwzfnkoYRDfBMnp C0abDcSqAAZslMpoRCybp7 NoXGYxXGZzMjJcdGFiXHRh Uoo7KZKxdCPmQHYiPhKaQ6 zgklumJiXYDNIpr0hgG5cm eOUXhZSkQ8WiYXoerdAyXR ugWTwcLZCjJZD2XG41SMqs IWCngj06 CPT Code(s) (test code e9nyzWHgBWZdzNN9KoOcSW = 3357) Mfp7ccy9BaiVTjcOHsFHgv nOCwycPwrj90wBV7zL32MX 1iQOBjIjA6DSEjydM3Ddg7 AHNwLDYqtNGpO276l2qwj2 acfrLseIN8mLwiNGLaPRYp YWluXGZzMjAgODgzMDUsID g4CgYiPXS3GAP2HXj1CTYp cn0= CLINICAL HISTORY (test p2dalLNkPMBfgPN8LyUlON code = 3356) Hmb6slk1FdyCQgpKAeNUwo gOEqlzQcka25pNI4wZ65GS 2nMILeKgS5FVLtqaH9Msw3 ROOjSIEbrESuH208k7wgt2 ifioKwiNN1wZrzQBPvKIQi YWluXGZzMjAgTGVmdCBn 9akmCftNW7D5ocnX8jh84o jzEbBNTnZGP4HmUvkEU0Lz EgeCAyIGNtIFxwYXJ9 SPECIMEN SOURCE (test t0xmwKMiRBTscFU3MeHeLM code = 3377) Fhs2fdw3IdsFXxgPZeHGtn jWWnflCdfm36kZW6mD27TZ 7fFNPeWyR7PSIlyoU5Dow9 LDJuRBYzlVUaX242t5yax6 nygjMswQK5oDwnOHYxWUPy YWluXGZzMjAgTGVmdCHopi Health Care Center 6asb0neAvvsGXbBFVjuPSf fQ== GROSS DESCRIPTION (test a1ebgDHjQAMejLGaDmNiMA code = 3366) OxTYDri6faDKYajLEsAoZs MzNcZnRuYmpcdWMxXGRlZm Yoa9few195eJMde7mdPDVQ dymkwXu9s2guNRDcVrK8qT UqIJkgV7oiueNqrUOhZRMe DJz8rR31XVMllC8zhHEjKE zorlOrBoG8CSqeWGKuVkI0 XCBxwGRxLPDmL4hvNUQgTZ ltYKPoRLoikIGwRFJ2bFuz e0G9oIYsjPYzwVdeUbXgGg SqUYNNa6BfNJm0wHceP8Qz ZQZxOsI2dDGwYEVfRMloBE VpMOCyqvB0rZ52BJxiqzP5 fXTpy1Xpa65cw968uB3pmP QgCVD3EFGbJREacFWmVDYc FOQ0XTOvaDMyC9d1FrExxN LaQ0Y5ImAqqACgH8B1EgUr mXZsC4Z6JnIhbHNmJELvyG YnUu1hiZNraGSilz1qiq94 LRR4y2ZtrOykAEM1FCK7As WbTa2xcKZdQBBhLMPcyJKd RZTkUJ8dpOQaQFNkhK5qem xjXHBnYnJkcmhlYWRccGdi lkQjMn1ykUlgBKT4LFkaH7 nxwV5xLjZ4UWyvY3mfbI1w WPw5SHtmwJJ6FGEbxD3qFN 8wyzhls7evEiQkDM2glush e2ejNvIuCQ0emie9x5miEo RxYQ7bpyajz2doFcPfJLbv TPHssunbRKMjw4EcpbbuJE Bel5FvV0LawGwaI52nvXpu V79tLEKpaXosvU8reAxedB 5cZjBcZnMyNFxwYXJkXHBs YWluXGYxXGZzMjBcbGFuZz EwMzNcaGljaFxmMVxkYmNo VISfPBnkZ8erQmAvZzLzAA BBLiBSZWNlaXZlZCBpbiBm n6IiTEyrgcMgWNWgxCEvRX dpdGggdGhlIHBhdGllbnRc Y2K3rcKsKW9kIVJtEYUdI7 KeMRZrW15iJABpbK5pGCWx YM4rKVFzqg6mgmxqnEZjbD RyCP3aDQQullKvj0TsPG2j WE34zUYkjXpcRIpxHXtza0 kezFHat04cyFG7rYAtjEOw E33qUCHzwqDjR5zjEzAuCh DpYR5vIXCkOWluDIfszvo5 xFYdaCOaiDE3LGShyW6hlW 10wrQlgiIIRK0omEcaZCye vU3oVTEdBYydGXZkS6KhbO 2mJF2XAsxyFCSwMMNKX5Ew I51hiHNecB== MICROSCOPIC DESCRIPTION j4wglRXrNLUfzVG4WzXmUU (test code = 3371) Tkp0cpz7EmoITjsBPwXUkc lEToiuBffm78mHW0zS96DX 7hVQKcCtT7UNIpjjE1Vsr9 DHLePHLcjQJjD325b3hgw8 nvrvAsvJR9iQghKSGkBOFu YRscHDDhQwWsBZSSNn1ZQF VEXHBhcn0= SPECIAL STUDIES (test h3lszSYdLXRbmYL7QcWbQA code = 3376) Hmu5kmz2JbwZVfvBOuDHqc uGFisrPdir81sOJ2tP84WI 5cATQkGdU2CHFbgiW8Wdn0 NIVyISDxuETbI934EAEuVS OctNjkclj9dD08COUtnI3a uLXmSEp1SNUniaDdsSjwjF 7vGlGuMtRcBdCUmWRemO48 SOBxgoG0UYXah07jf8DyrR hwvcMdBSMaQFeaC7s4NFFu VGOrAXP5c4Kjj5LccF7erE 6xxOedqC4mhCIhiHI8qbwv c8Exf7GmI4eraSOmjWDjaa VcGWGvqaKBIS8WUuSNMR6k C1FIWCULSoktWzDwLNadRY WEWUeRWOFMSYS0XBERQAVu FGLHGDctUMUmW83cpKBlyM BTbGlkZXMgRXhhbWluZWQ6 OFUFge7ym1KgKJHvoi93zj Pgf9KswEo4GPNib794sx1n jlN8OCPvNPY8QTz3CNEbLQ OwzG6eNtX4iMLnQWRdZVI2 XMD0JEPiu0L3HS2jIAQvWC NlRLNjjrWnj1rkd5tyPUSy TAO6tmHwpN5vC6SnHLZfr7 YgdGhlIHBhdGllbnRzIHNh zZMmNTUptF90CZNxaGFoxC NcDNGpZNE9MWnbhB7dLwSV cbOeli5mqTMiz7CreQu4XG MtlgOkprLqDKIjwwUpS81u sSWkoVKuq8aogiGrxmWrpL PwcGUhWGMgIBV9ZLv5LTVe YMuyYAXeVJmyVQEhBF5ipY 3hpTmyqS6bhBLnrYV4ukxt tYIhwX1lY0EkFCHxz8Iksi ght9DrOADlglSsuh4tUVGs kUJPCVanm8WsV4BqZAx2w6 LasEzxGRhgUDj3CbUrJQXx zSYuxZLPQA02RBNdUIRarD rqmV6mwCBUTOXbnxE0f6I0 RKrrHQGsDDg7PKdhdzQrTW FojK8oOFRhYP6mGDx4hhNv LBMwp4XiSV6tVMXknLFcTE H7JXYvv8XuW1Ure2UyFCUk QIQzur7kwkNiEoBJpHLdNL Cpuh88ZMJoWU7vI3jyDOTq FTJfvsGkmUOsp3AeVMCwtV G7yLBuCR6WVlYYl03xCJZa ZCRMmzFsTNFwqXxfnYK1dd V1sU3fSpMKjVBsZgINIVpt ivUjYAJqnb4ojeMrJMFjUI Dcf9ZkqGAyrBSpcvZsU5Hx t2HtRXVfqf17PBagzZSlml 69YF3bW1Rwy9BxmT8jQJii HUUyx5HhmFIpbBPkZTYuq6 HuE5ivyhfrVXmyoVFooJ8d CQRgUVc1WZNrl9CyUBMav8 QgYmUgcmVnYXJkZWQgYXMg qJ55OLQ2kKhydTwdtyUzJC 7eOYUzoqBpMHYsGNValN5b MOvcibApGSKhkvI4a1V3GZ hjYHEnckFlUuqlKIH5pyPe xhU6sXYcJ5urrorcPVhzXS Xwp8ZndZ7cyUGBqBYjv4Ya sCVoaNMTdEUvFQ6fvuGxZD 2dCKX2OGyaMWXARTCeEWsg ZJStKZU2PNckNtvySRI5xk CxTMUrg5AkCNlzS7juI11c eNdecVf3vYXqfNepvDAizG KaLZCvonN8v4T2AHMvh0Dh bmcuXHBhcn0= Gross assessment was [facility] performed at ([facility], = 2777) Department of Pathology, [address] [place] [address], Technical component was [facility] performed at ([facility], = 2778) Department of Pathology, [address] [place] [address]25, Professional component [facility] was performed at ([facility], code = 2779) Department of Pathology, [address] [place] [address], [id number]00 Test Item Value Reference Range Interpretation Comments Case Report (test code Surgical Pathology = 104) Report Case: [id number] Authorizing Provider: Vandana Tejada MD Collected: 08/31/2020 06:37 PM Ordering Location: [address] Received: 09/01/2020 08:13 AM Service Pathologist: Thien Radford MD Specimen: Groin, Left, left iliopsoas mass biopsy ADDENDUM (test code = [id number] 3381) Mzw1ugu2CbnFBupNOaZVqk gEUnpiJftw37aKQ6kV04XY 9wWRSdQqT0PJEqkjU9Zmp2 DQCkOJOdpSOmL706k9jcd4 oqzdAetSA7tReaLRFhJRBw EKweSBYiAsFrTQ0skO4beC udbU5huMYohOOaiHGqfTFg rRNiFKIgrzAxru6jNPGjzx UpzM4cvbKRBRNdVR9lzdN5 wwF9AYG8qWHlsdAuhKmjs8 JjVcPzELysnqL0sbZxIEPk a5KmzBc8FUVxm7CyI2MlMX 4gVGhleSBhcmUgbmVnYXRp gnMlGk1qHAahheA8wP3iSN CaOJNxFWZqn97vxoegSN4A MBIozW6wgHipiXTxK5viXD FjdGluIChTTUEpLCBNVUM0 JDSnqnXvI6ZASUPiCIRag7 ozObFlSIJsndGkjY3eEKit SiufR3aoBxgrjQQwjsJxkX FibGUsIHJhbmdpbmcgZnJv tWMbJXB8wgU4HXSbXDtsEH AotDXsRIUhWIChON0mrEDz dGljIGNlbGxzIHByZXNlbn XyZQKam68yoXOprKIemNa3 o9slXEArOYH9xiXxYMWrZG FzBRAqIQRqdLUfWH6yQZGj ZWQgbnVjbGVpLiBUaGVyZS RutzKcim9wjyOxUQplmNPr rsZprZZieJYudVy1y6GnOg QshGj2pmYcNEDhKRAundCw KDhwa6A3OWVmtVqfgkJddS AaBX4aTQOsJHInXbAkCAKl p0Crhg8jvIQzZWKsweOLgn YlCGdcWTR6tTPuoqA9dYCt TF0dQCApZUXjUWRbw78anS IsrD7lTMLzio4xpfC8VGRy z8nxopNuMTulRDGsan5eIV LfxZ2ePtYojRTmuGvmMZ89 LlxwYXJccGFyIFRoaXMgY2 FgYHO6wUttRSWnDNVmTtBk gbYgYFExRO6UGRSyCHBag3 8eVKXrkcDpu03jvSf5AGZa m12kZNChCOHhJILuUSDiGT WseO7bxBM9xQkqBQQclNwy wl8plTIzNPAybgKKxvUiQF VsoSBmsZ8klqTuzHWmQLYq VCw4BASnCcKOiF9vWPNzBN 9lR2niTJfvypkmBNH8 DIAGNOSIS (test code = m1hvzIEtNMNlq3jbCJXjfR 3220) FuZzEwMzNcZnRuYmpcdWMx IHtccnRmMVxlcGljOTIwMl vreiSfZDCbrATaJ7Gjlfue PFzoSZ1xHZ7feQorvPNrpB RcBMUvKwQfw9yah277qVNd f6upZJUXduukrIa1lYitA8 6pq2L3StvdC93kpSRqLFil bGFpblxmczIwIFBBUlQgQS INTQHWUSfZCZ6DX23TQhCP JUFXDJPYQB9JN2p8MXEobc BTUElORExFIENFTEwgTkVP PZoHN15kVNUvtaOJGW0ATM BJTlRFUlBSRVRBVElPTiBQ KG0KEH9NWMxCDJKZD7CUPZ 8IGCzCYN6CXmzzLYNaLDWQ NZ5CKC9zVwMQV8WXUSIAQY CABCnGJx6jYSZzzw29FYI1 UtQcd8Z8PCP5MQPrHLBub2 lcZGVmbGFuZzEwMzNcZnRu PsvwdGNpPQDcDwGcd6fct5 54yNGln7maHTBqGyP6qQUn YLPcaRWlO731EMNcQBmum5 czo7UoRQUdwGZsp7M6HVWR fbaliIn0lQgvU01fv3I9Te nyR9imANLnDNHbQ5UjNC4z IDOjBmn5VIS9VYA7LGZzFC TgX8YmIH4tVUUdmNZdMEb2 z2anwLefKOUhARX8q6urGC etchIoSL3kpq1mvMu0y3mi czEgRGVmYXVsdCBQYXJhZ3 CzmMzkGy4hhMb7jQbsEqem LKH2Xsg8VJ7zac53rlb6tP kpNFEgpoluPpR4RYbyNMLv rbfdPCq9BTzwZJYsjZP3OU KpgJOrC0CtJZOvLK6nuoi7 EQN2AKwzXLPzHxG5PTAysZ FeMRAtcRxtINxkx826ISL6 UzQtMF0eJ9Mgs7Y6eL8jjG SfVPNyiJBwVpZrLDEucn0a lIBjUFsvt2ZeLDI8lxS2gB TxlDYmWDBbKhS1YErzQY0t no50NACaRZL7xa4khBIncS zavvQcrGLbREnfA3FySTLm m467RFJlS1QtFPGhd5V6ip WyJoIjSUSikFK6iaR7KMYa RE6pdmayq6rsCJyyZSskAZ RsbzL9qxR4SNGupVZbP5Cq jR3mGFMpRI0yacbvo9dzPT S9SUjlBQShLAC9GtTrRVXn k2Cgeof0XvAow6IoxNLgFF niK82ez818AVOjrmLvI7eq bGFpblxwbGFpblxmMFxmcz I1WLEiQUngbifuRWRcMCep I1ybCwRcGRVrcXxdHRxet9 NoXGYxXGZzMjJcdGFiXHRh Apz8YNKrfKOiQBEzDoMmC5 ttirptAiTPGIOgf9wrA4gl kKVFyRWjZ9MiMGhgvpQlFJ hkECmfYRGjBAE6QG95CQng DXGaow10 CPT Code(s) (test code j9gxxODvNCQqyMR5VcGrGI = 3350) Gak0ccv3CypWIufKHiEZqu mJZohyPlqo47gQT5eJ17ZE 0gYSXoCcX6GIPfyuJ4Gda5 ZKQkOCDhqSVyV705z7vga3 bkoyPntRD7zVtqBGBmNTLq YWluXGZzMjAgODgzMDUsID q3PaCnBBG4OFJ9PBi2QGLf cn0= CLINICAL HISTORY (test p5lkjHAzFIHkoNB3YsGdUV code = 3356) Ehv4ddm5ZxmNLytWSoBBsm dZDihwMfkh06yZT0tE58KM 0vIIPdOiH7YUZtduP6Ank4 RPDoJURavRFfI410o6ihi9 lfiwEwsZY9yQeaQMBkLVXq YWluXGZzMjAgTGVmdCBncm 6rwzEpsVI0Z6eziN5xr24s phAoBCJoVQC1QtYxsKU9Pf EgeCAyIGNtIFxwYXJ9 SPECIMEN SOURCE (test s1ywgUTbYFKxfYV6PcQgQI code = 3377) Wuo5uyk3QgnYZkeJSwFCdc jGOtxtVyqt83vSY9mR76IB 3hBOCcXaZ6LWBkzxK0Xad4 IBEqYZPbkLBsF119v4fat4 pouzKcqZW5tEqhSLZcWCEy YWluXGZzMjAgTGVmdCBncm 1ozs2drDrxrQXhFEQutYMe fQ== GROSS DESCRIPTION (test c8gnkRCbFDJqtBDwZdBpNB code = 3366) LaNTJao8cvIZZwiHQwRwUn MzNcZnRuYmpcdWMxXGRlZm Gbp2hsz778vWQyg6ggKBQA razkkFn7i0epXRPoQxK0uO CcXAhcJ7pxeaNltFSmTXGe FLs4bX12TSTtlD4ijAJqVU fwxgPxEyD4NAybVREmJvH5 PIVedAPzMXBnV7zfKXVuDZ yuGFQmKYvsjPJxOCJ0mFzi l5J9sHBxiKJgvRykMmGwIv BhRZJZa1VzOVu9tUoxF6Ql EBKyCnM3uTCbRXKiSMfyCX DaRVBautP5lF92PMidhnH8 yWPmh6Rti59he450aC3tzP EuASV5HHGkUFZquXEoJDPm YKF8WRDqxXTgH8w5LsNxlG BqM6U6NuFqhRLpE9M6VjFu rSWuD9J3RfXxuJKuZOHqtQ FzKs7ppZXvgUZuqw1omi18 GEU2c7ZufAxlZEW7JAO8Gk JwGq3akJFgVXUgMOJzbONl GGMpCD0ztOUnKXJjdE8jti xjXHBnYnJkcmhlYWRccGdi hfXzCh8xfEljRAZ9YHvkH3 nzgD3zQsI0YDftO2uhfS4t FDu0NWajzBK5FJHtaY8wDH 9cgdybu4tyDcDrPT7ppirg r3qgHlXlIK4ljbs6x6jwJe NdKJ3kynaql3mqNlMbUSxd TCRizqreYXCxo3EqlwbpUR Vfb0ScS7YsmAjhM96muJuz C84mDTYvbSpptN0dzCtvmK 5cZjBcZnMyNFxwYXJkXHBs YWluXGYxXGZzMjBcbGFuZz EwMzNcaGljaFxmMVxkYmNo KNAwIIrvQ6azOeOnZqJoSB BBLiBSZWNlaXZlZCBpbiBm o7DzIJbdjnHxUSUzwLJhTB dpdGggdGhlIHBhdGllbnRc Y9B3llWmXT7wWGFrKLUwC9 GjWBRcR28lGZFsjP0nOLPd BG8hDWCxdv8njnbkoAHfvB YmTL9jZDCbeuAbc1JcVS9k VL49mCShmXvoUIweHWojr1 cxcPWfh55loYD0kGJziKIn Z49uXZZihvZmU6xlFpToKz QdIE5aZVAdXDpoYXimuav7 mBQvzDAwqOW6PRBghY6ggT 44sxYxibBVLR2sdErdATii uG5kJTTkNDwgPVUjI5KqvJ 8wKW2MFcovSJFbPDEVE1Iw X87zvCHllR== MICROSCOPIC DESCRIPTION d7vhnLSuMUPhcBK0OtDtWS (test code = 3371) Ghz2fnz8UbxJGajIEvFAzg nXDijdTqsn02hME1aH50CI 3fYMGiDpJ0UTUrfpO3Gtk4 MFDmJNAjuVKyV032h1igi8 yufzQljRW9mLpyUCGrBILc GMipHUHcHaGqZEMUEg3IZE VEXHBhcn0= SPECIAL STUDIES (test l8yqnUCvLIOdgUS2KiIxXG code = 3376) Tdu5ans3VfvAEnlDGdCOvq cAEfmzNwds15wWP5bN75VB 0qPJDaWkO9HAQklnD6Slv1 GNErCOUvqGBlY526GWPrIW DhaZjiuoc8yV10ZDPzcF6o qIOzBQr5EWTvkaAmbJyicB 3fYuUqKuTfTuZAgOWatO58 XPZlmqL4EWBup83xn1CjdR adtdArBPGcBKxmL4t3MQKp KAPhCCY7i6Prd3FayW9vwR 2qdKslyX3hcMYdcWP2szob h5Ifq7TuS2xpyGHjhTXgga WkKZAoxaLXBW9CVtJPNG6t S1PUSNHDIokxAbDpFFrxYF AZVNlMHLTJHUK8BFBMHOBo BZMWJLvpHXAaA21cgZKuoA BTbGlkZXMgRXhhbWluZWQ6 GNZQkd4ba4XlXTZcmx58nn Zmi3YpzPs6LQOhz983hd5i axA3IPLlBRC5PBh9NVTtNZ DudV9xXvR4jZUnBZDpHVF3 FLS2XLOtg6A6AV5tQSLqUP ImANCftkXqe3wlc0ekIRFg EZG1uqOsvJ7cP0CoEAHdb1 YgdGhlIHBhdGllbnRzIHNh eUDsRMEnuY20LPIfwHWlyU XfIZAtUYU0PCyfsS7dKaSO gaTqth5ihTVmq8KluCp8PP PwmmIutwDnMXKmlsTaA30r uVJjrIZih0kevyYitdUpfB KndSXeOSNxVLW0CZe3AOSm CHcsMNFySZdyHSDlNL2arL 3reCqllK1etFCksXR6rkwk kNSczW7jE5DwYYHrn4Geak fol8QiGRByggHzte5kCPUf tXOXDJccm8WyI4ElEGq1y2 PplVtpECvwGTb4BtWhOJDu pUJoyEIAZG84DLBhHPXkvI jhxI0enFVQYLOvguA8k9W8 PSssVQVaFKh5EEnhtjMiAL LgsM6zIUPwAK2mPTh8mjFg ZFHfw9BxGS9vGQVtyXGwEA A3MUByu8GrG8Bse7ZwAASr NYUzzm3bsyZsSjWScSFrUS Bbpc41ERPuOJ8xA9unCUKa SVFpqvFvnITel6RxWRLtxY J9yVTjWJ8LWlMRu45tLPXs IUNQvwKxTXAebFjqdWM3zk U4wU7iWtIYqCEzOeBXSScn hkNzNVTqby7rvgFnMZSbCI Eib3GzhKOozBZbzxPsY9Rw j8CxLHJvcg09WFsebMWbuk 15KR4yY2Kao5BggL2bAYkc BQDok9YiqWModMRyYWSrj1 PaK2uywuzrWTebpTMemH0f ZDWtYFn2HDPtx8KaDPBnv9 QgYmUgcmVnYXJkZWQgYXMg xX22MDN2iCyfqTyjpeNoNV 6oETKbduGiVQIpWBNppH4c FJknwgFlBJHiemG7p9Y6NY fyOICqivMcSdbbLAL9zsIf wjZ6zWSkC9vjkloiMQesDS Uki5XzvN7pcKDYsGXcl1Ej nAXdnQIKwTKhTB8jmqUrAV 1sRRA9WKrxHPALBQFlNUsn CUFyCLO3HVggGzkcBZO6ki BsPLXvm0YfASryO9hrI65a rXkurBm7rIQunGhadGOfeK LmRQIxejW1x8Z5BOMbm0In bmcuXHBhcn0= Gross assessment was [facility] performed at ([facility], = 2777) Department of Pathology, [address] [place] [address], Technical component was [facility] performed at ([facility], = 9512) Department of Pathology, [address] [place] [phone], Professional component [facility] was performed at ([facility], code = 2779) Department of Pathology, [address] [place] [address], [facility] [id number] 10:56:00Surgical Pathology Report Case: [id number] Authorizing Provider: Vandana Tejada MD Collected: 08/31/2020 06:37 PM Ordering Location: [address] Received: 09/01/2020 08:13 AM Service Pathologist: [...] REPORT TO FOLLOW. 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 [...] evaluated Immunohistochemistry technical testing was performed at [facility], Pathology Laboratory where it was [...] to perform high complexity clinical la boratory testing.[facility], Department of Pathology, [address] [place] [address], [facility], Department of Pathology, [address] [place] [address], [facility], Department of Pathology, [address] [place] [address], YN, CHEST, WITH CONTRAST 2020-09-05 14:16:00Unlisted Reason for Exam - Click Yes and Enter Reason Below- >YesUnlisted 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 on09/05/2020 02:16 PMCT chest with IV [id number] 14:16:00Interface, External Ris In - 09/05/2020 2:18 [...] Smith Verified Date/Time: 09/05/2020 14:16:01 Reading Location: [facility] B1 C013Y CT [facility]-09[facility]05 [...] Smith Verified Date/Time: 09/05/2020 14:16:01 Reading Location: [place] [id number] CT [facility] 2020-09-05 [...] MDReport Verified Date/Time: 09/05/2020 14:16:01 Reading Location: [facility] B1 C013Y CT [facility] W/Doppler(CW/PW/Color) 2020-09-05 09:47:35 Test Item Value Reference Range Interpretation Comments Ejection Fraction Est EF is 55-60% (test code = 2574) PXN (test code = Interface, External Ris In PXN) - 09/05/2020 9:47 AM CDTTransthoracic Echocardiography Report (TTE) Demographics Patient Name DANIEL DEL VALLE Date of Study 09/05/2020 BETHANYYL Gender Female Visit Number [id number] Race Unknown Room Number 2146 Number Date of 1960 Referring Physician Vandana Tejada MD Age 60 year(s) Portal Developer MARTA Be Interpreting Eduardo Santiago Physician MD Armando Fellow DESIREE Xavier Procedure Type of Study [...] Velocity: 2.81 m/s TR Gradient: 31.62 mmHg [facility] W/Doppler(CW/PW/Color)2020-09-05 09:47:35 Test Item Value Reference Range Interpretation Comments Ejection Fraction Est EF is 55-60% (test code = 2574) PXN (test code = Interface, External Ris In PXN) - 09/05/2020 9:47 AM CDTTransthoracic Echocardiography Report (TTE) Demographics Patient Name DANIEL DEL VALLE Date of Study 09/05/2020 BETHANYYL Gender Female Visit Number [id number] Race Unknown Room Number 2146 Number Date of 1960 Referring Physician Vandana Tejada MD Age 60 year(s) Portal Developer MARTA Be Interpreting Eduardo Roberts MD [...] Velocity: 2.81 m/s TR Gradient: 31.62 mmHg [facility] W/Doppler(CW/PW/Color)2020-09-05 09:47:35 Test Item Value Reference Range Interpretation Comments Ejection Fraction Est EF is 55-60% (test code = 2574) PXN (test code = Interface, External Ris In PXN) - 09/05/2020 9:47 AM CDTTransthoracic Echocardiography Report (TTE) Demographics Patient Name DANIEL DEL VALLE Date of Study 09/05/2020 NEELAM Gender Female Visit Number [id number] Race Unknown Room Number 2146 Number Date of 1960 Referring Physician Vandana Tejada MD Age 60 year(s) Portal Developer MARTA Be Interpreting Eduardo Roberts MD [...] Velocity: 2.81 m/s TR Gradient: 31.62 mmHg [facility]Com[facility] [id number] 07:34:00 Test Item Value Reference Range Interpretation Comments Protein, Total (test 7.5 See_Comment [Autom ated code = 2885-2) message] The system which generated this result transmit yumiko reference range : 6.0 - 8.3 gm/dL . The reference range was not u sed to interpret th is result as normal/abnormal . Albumin (test code = 3.6 g/dL 3.5-5 82122-5) Alkaline Phosphatase 106 U/L 40-150 (test code = 6768-6) Total Bilirubin (test 0.2 mg/dL 0.2-1.2 code = 1975-2) Sodium (test code = 139 meq/L 084-186 8894-2) Potassium (test code 4.7 meq/L 3.5-5.1 = 2823-3) Chloride (test code = 104 meq/L 98-107 2074-0) CO2 (test code = 25 meq/L 22-29 2027-9) BUN (test code = 10 mg/dL 7-21 3094-0) Creatinine (test code 0.70 mg/dL 0.57-1.25 = 2160-0) Glucose (test code = 159 mg/dL 70-105 H 2345-7) Calcium (test code = 8.8 mg/dL 8.4-10.2 20503-1) AST (test code = 9 U/L -34 1920-8) ALT (test code = 13 U/L 1742-6) EGFR (test code = 103 mL/min/1.73 [place] [address]-8) NOT ACCURATE CREATININE CLEARANCE IN PREDICTING GLOMERULAR FILTRATION RATE . ESTIMATED GFR I S NOT APPLICABLE FOR DIALYSIS PATIEN TS. LOPEZ (test code = JESSICA) Transmissions Systems Operator ID - BALA Hernandez Lab Interpretation Abnormal (test code = 19852-0) [facility]Com[facility] [id number] 07:34:00 Test Item Value Reference Range Interpretation Comments Protein, Total (test 7.5 See_Comment [Autom ated code = 2885-2) message] The system which generated this result transmit yumiko reference range : 6.0 - 8.3 gm/dL . The reference range was not u sed to interpret th is result as normal/abnormal . Albumin (test code = 3.6 g/dL 3.5-5 77600-3) Alkaline Phosphatase 106 U/L 40-150 (test code = 6768-6) Total Bilirubin (test 0.2 mg/dL 0.2-1.2 code = 1974-2) Sodium (test code = 139 meq/L 189-948 9372-2) Potassium (test code 4.7 meq/L 3.5-5.1 = 2823-3) Chloride (test code = 104 meq/L 98-107 2074-0) CO2 (test code = 25 meq/L 22-29 2027-9) BUN (test code = 10 mg/dL 7- 3094-0) Creatinine (test code 0.70 mg/dL 0.57-1.25 = 2160-0) Glucose (test code = 159 mg/dL 70-105 H 2345-7) Calcium (test code = 8.8 mg/dL 8.4-10.2 19394-5) AST (test code = 9 U/L -34 1919-8) ALT (test code = 13 U/L 2-6) EGFR (test code = 103 mL/min/1.[place] [address]-9) NOT ACCURATE CREATININE CLEARANCE IN PREDICTING GLOMERULAR FILTRATION RATE . ESTIMATED GFR I S NOT APPLICABLE FOR DIALYSIS PATIEN TS. JESSICA (test code = JESSICA) Transmissions Systems Operator ID - BALA M Lab Interpretation Abnormal (test code = 04104-5) [facility]Com[facility] [id number] 07:34:00 Test Item Value Reference Range Interpretation Comments Protein, Total (test 7.5 See_Comment [Autom ated code = 2885-2) message] The system which generated this result transmit yumiko reference range : 6.0 - 8.3 gm/dL . The reference range was not u sed to interpret th is result as normal/abnormal . Albumin (test code = 3.6 g/dL 3.5-5 15722-1) Alkaline Phosphatase 106 U/L 40-150 (test code = 6768-6) Total Bilirubin (test 0.2 mg/dL 0.2-1.2 code = 1974-2) Sodium (test code = 139 meq/L 181-120 9819-2) Potassium (test code 4.7 meq/L 3.5-5.1 = 2823-3) Chloride (test code = 104 meq/L 98-107 2075-0) CO2 (test code = 25 meq/L 22-29 2028-9) BUN (test code = 10 mg/dL 7-21 3094-0) Creatinine (test code 0.70 mg/dL 0.57-1.25 = 2160-0) Glucose (test code = 159 mg/dL 70-105 H 2345-7) Calcium (test code = 8.8 mg/dL 8.4-10.2 84108-8) AST (test code = 9 U/L 5-34 1920-8) ALT (test code = 13 U/L 6-55 1742-6) EGFR (test code = 103 mL/min/1.73 [place] [address]-5) NOT ACCURATE CREATININE CLEARANCE IN PREDICTING GLOMERULAR FILTRATION RATE . ESTIMATED GFR I S NOT APPLICABLE FOR DIALYSIS PATIEN TSMaximiliano JESSICA (test code = JESSICA) Transmissions Systems Operator ID - BALA M Lab Interpretation Abnormal (test code = 92189-1) [facility]COMPREHENSIVE METABOLIC [id number] 07:34:00 Test Item Value Reference Range Interpretation [...] S NOT APPLICABLE FOR DIALYSIS PATIEN TS. Transmissions Systems Operator ID - BALA MSARS-CoV2/RT-PCR (Asymptomatic ONLY)2020-09-04 12:52:00 Test Item Value Reference Range Interpretation Comments SARS-COV2/RT-PCR Negative Not Detected, (test code = Negative, See 14616-0) external report for linked test SARS-COV-2 [facility] PERFORMING LAB (test code = 26581-8) JESSICA (test code = Negative result for [...] of the Act. Fact Sheet for Healthcare Providers:https://www.[employer]/sites/default/f nito/product/documents/F act_Sheet_HC_Providers_L moi_RWPU-UwJ-1.pdf Fact Sheet for Healthcare Patients:https://www.[employer]/sites/default/fi les/product/documents/Fa ct_Sheet_Patients_Lyra_S ARS-CoV-2.pdf Performing Laboratory:[facility] [place] [address] [facility]omatic ONLY[facility]2020-09-04 12:52:00 Test Item Value Reference Range Interpretation Comments SARS-COV2/RT-PCR Negative Not Detected, (test code = Negative, See 73807-8) external report for linked test SARS-COV-2 [facility] PERFORMING LAB (test code = 59162-9) JESSICA (test code = Negative result for [...] the Act. Fact Sheet for Healthcare Providers:https://www.[employer] idel.com/sites/default/f nito/product/documents/F act_Sheet_HC_Providers_L bbp_KCFQ-WvK-3.pdf Fact Sheet for Healthcare Patients:https://www.ashly del.com/sites/default/fi les/product/documents/Fa ct_Sheet_Patients_Lyra_S ARS-CoV-2.pdf Performing Laboratory:[facility] [place] [address] [facility] (Asymptomatic ONLY)2020-09-04 12:52:00 Test Item Value Reference Range Interpretation Comments SARS-COV2/RT-PCR Negative Not Detected, (test code = Negative, See 77724-8) external report for linked test SARS-COV-2 [facility] PERFORMING LAB (test code = 99104-4) JESSICA (test code = Negative result for [...] the Act. Fact Sheet for Healthcare Providers:https://www.[employer] ideTriptelligent.[employer]/sites/default/f nito/product/documents/F act_Sheet_HC_Providers_L vlw_HZAB-BgC-2.pdf Fact Sheet for Healthcare Patients:https://www.[employer].com/sites/default/fi les/product/documents/Fa ct_Sheet_Patients_Lyra_S ARS-CoV-2.pdf Performing Laboratory:[facility] [place] [address] [facility] ([facility])2020-09-04 12:52:00 Test Item Value Reference Range Interpretation Comments SARS-COV2/RT-PCR (test Negative Not Detected, Negative, code = 2840665) See external report for linked test SARS-COV-2 PERFORMING LAB [facility] (test code = 6535513) Negative result for this test determines that [...] 564(g) of the Act.Fact Sheet for Healthcare Providers:https://www.[employer]/sites/default/files/product/documents/Fact_Shee v_WE_Ysoxqprxi_Qjla_FAJM-VzK-7.pdfFact Sheet for Healthcare Patients:https://www.[employer]com/sites/default/files/product/ documents/Xuqd_Fhduc_Paerrqlo_Fakg_LFZD-XwJ-9.pdfPerforming Laboratory:[facility], [place] [address]K[facility] with platelet count + automated [id number] 06:38:00 Test Item Value Reference Range Interpretation Comments WBC (test code = 6690-2) 11.4 See_Comment H [A utomated message] The system [facility] generated this result transmitted ref erence range: 3.5 - 10 .5 K/L. The refe rence range was not u sed to interpret this result as normal/abnor mal. RBC (test code = 789-8) 4.35 See_Comment [Au tomated message] The system [facility] generated this result transmitted ref erence range: 3.93 - 5 .22 M/L. The refe rence range was not u sed to interpret this result as normal/abnor mal. MCHC (test code = 786-4) 28.0 See_Comment L [A utomated message] The system [facility] generated this result transmitted ref erence range: [...] See_Comment [Aut omated message] 777-3) The system [facility] generated this result transmitted ref erence range: 150 - 45 0 K/CU MM. The referen ce range was not u sed to interpret this result as normal/abnor mal. MPV (test code = 9.0 fL 9.4-12.3 L 17059-7) nRBC (test code = 413) 0 See_Comment [Aut omated message] The system [facility] generated this result transmitted ref erence range: [...] H [Aut omated message] 670) The system [facility] generated this result transmitted ref erence range: 1.56 - 6 .13 K/L. The refe rence range was not u sed to interpret this result as normal/abnor mal. # Lymphs (test code = 2.06 See_Comment [Auto mated message] 414) The system [facility] generated this result transmitted ref erence range: 1.18 - 3 .74 K/L. The refe rence range was not u sed to interpret this result as normal/abnor mal. # Monos (test code = 0.95 See_Comment H [Autom ated message] 415) The system [facility] generated this result transmitted ref erence range: 0.24 - 0 .36 K/L. The refe rence range was not u sed to interpret this result as normal/abnor mal. # Eos (test code = 416) 0.46 See_Comment H [Au tomated message] The system [facility] generated this result transmitted ref erence range: 0.04 - 0 .36 K/L. The refe rence range was not u sed to interpret this result as normal/abnor mal. # Baso (test code = 417) 0.03 See_Comment [A utomated message] The system [facility] generated this result transmitted ref erence range: 0.01 - 0 .08 K/L. The refe rence range was not u sed to interpret this result as normal/abnor mal. Immature 1 % 0-1 Granulocytes-Relative (test code = 2801) Lab Interpretation (test Abnormal code = 81259-5) [facility] with platelet count + automated [id number] 06:38:00 Test Item Value Reference Range Interpretation Comments WBC (test code = 6690-2) 11.4 See_Comment H [A utomated message] The system [facility] generated this result transmitted ref erence range: 3.5 - 10 .5 K/L. The refe rence range was not u sed to interpret this result as normal/abnor mal. RBC (test code = 789-8) 4.35 See_Comment [Au tomated message] The system [facility] generated this result transmitted ref erence range: 3.93 - 5 .22 M/L. The refe rence range was not u sed to interpret this result as normal/abnor mal. MCHC (test code = 786-4) 28.0 See_Comment L [A utomated message] The system [facility] generated this result transmitted ref erence range: [...] See_Comment [Aut omated message] 777-3) The system [facility] generated this result transmitted ref erence range: 150 - 45 0 K/CU MM. The referen ce range was not u sed to interpret this result as normal/abnor mal. MPV (test code = 9.0 fL 9.4-12.3 L 91643-2) nRBC (test code = 413) 0 See_Comment [Aut omated message] The system [facility] generated this result transmitted ref erence range: [...] H [Aut omated message] 670) The system [facility] generated this result transmitted ref erence range: 1.56 - 6 .13 K/L. The refe rence range was not u sed to interpret this result as normal/abnor mal. # Lymphs (test code = 2.06 See_Comment [Auto mated message] 414) The system [facility] generated this result transmitted ref erence range: 1.18 - 3 .74 K/L. The refe rence range was not u sed to interpret this result as normal/abnor mal. # Monos (test code = 0.95 See_Comment H [Autom ated message] 415) The system [facility] generated this result transmitted ref erence range: 0.24 - 0 .36 K/L. The refe rence range was not u sed to interpret this result as normal/abnor mal. # Eos (test code = 416) 0.46 See_Comment H [Au tomated message] The system [facility] generated this result transmitted ref erence range: 0.04 - 0 .36 K/L. The refe rence range was not u sed to interpret this result as normal/abnor mal. # Baso (test code = 417) 0.03 See_Comment [A utomated message] The system [facility] generated this result transmitted ref erence range: 0.01 - 0 .08 K/L. The refe rence range was not u sed to interpret this result as normal/abnor mal. Immature 1 % 0-1 Granulocytes-Relative (test code = 2801) Lab Interpretation (test Abnormal code = 59578-1) [facility] with platelet count + automated [id number] 06:38:00 Test Item Value Reference Range Interpretation Comments WBC (test code = 6690-2) 11.4 See_Comment H [A utomated message] The system [facility] generated this result transmitted ref erence range: 3.5 - 10 .5 K/L. The refe rence range was not u sed to interpret this result as normal/abnor mal. RBC (test code = 789-8) 4.35 See_Comment [Au tomated message] The system [facility] generated this result transmitted ref erence range: 3.93 - 5 .22 M/L. The refe rence range was not u sed to interpret this result as normal/abnor mal. MCHC (test code = 786-4) 28.0 See_Comment L [A utomated message] The system [facility] generated this result transmitted ref erence range: [...] See_Comment [Aut omated message] 777-3) The system [facility] generated this result transmitted ref erence range: 150 - 45 0 K/CU MM. The referen ce range was not u sed to interpret this result as normal/abnor mal. MPV (test code = 9.0 fL 9.4-12.3 L 93822-2) nRBC (test code = 413) 0 See_Comment [Aut omated message] The system [facility] generated this result transmitted ref erence range: [...] H [Aut omated message] 670) The system [facility] generated this result transmitted ref erence range: 1.56 - 6 .13 K/L. The refe rence range was not u sed to interpret this result as normal/abnor mal. # Lymphs (test code = 2.06 See_Comment [Auto mated message] 414) The system [facility] generated this result transmitted ref erence range: 1.18 - 3 .74 K/L. The refe rence range was not u sed to interpret this result as normal/abnor mal. # Monos (test code = 0.95 See_Comment H [Autom ated message] 415) The system [facility] generated this result transmitted ref erence range: 0.24 - 0 .36 K/L. The refe rence range was not u sed to interpret this result as normal/abnor mal. # Eos (test code = 416) 0.46 See_Comment H [Au tomated message] The system [facility] generated this result transmitted ref erence range: 0.04 - 0 .36 K/L. The refe rence range was not u sed to interpret this result as normal/abnor mal. # Baso (test code = 417) 0.03 See_Comment [A utomated message] The system [facility] generated this result transmitted ref erence range: 0.01 - 0 .08 K/L. The refe rence range was not u sed to interpret this result as normal/abnor mal. Immature 1 % 0-1 Granulocytes-Relative (test code = 2801) Lab Interpretation (test Abnormal code = 53446-0) [facility] W/PLT COUNT & AUTO [id number] 06:38:00 Test Item Value Reference Range Interpretation [...] PERCENT (BEAKER) (test code = 2801) Prothrombin time/[id number] 05:07:00 Test Item Value Reference Interpretation Comments Range Protime (test code = 19.2 See_Comment H [Autom ated 8572-2) message] The system which generated this result transmitted reference range : 11.9 - 14.2 seconds. The reference range was not used to interpret this result as normal/abnormal . INR (test code = 1.64 See_Comment [Automated 3581-6) message] The system which generated this result [...] valves. Lab Interpretation Abnormal (test code = 02011-4) [facility]Proth[facility]bin [facility]/[id number] 05:07:00 Test Item Value Reference Interpretation Comments [...] valves. Lab Interpretation Abnormal (test code = 14783-4) [facility] campusProthrombin time/[id number] 05:07:00 Test Item Value Reference Interpretation Comments [...] valves. Lab Interpretation Abnormal (test code = 94498-7) [facility] campusPROTHROMBIN TIME/[id number] 05:07:00 Test Item Value Reference Range Interpretation Comments PROTIME (BEAKER) 19.2 seconds 11.9-14.2 H (test code = 759) INR (BEAKER) (test 1.64 See_Comment [Automat ed message] code = 370) The system [facility] generated this result transmitted ref erence range: [...] See_Comment H [A utomated message] The system [facility] generated this result transmitted ref erence range: 3.5 - 10 .5 K/L. The refe rence range was not u sed to interpret this result as normal/abnor mal. RBC (test code = 789-8) 4.36 See_Comment [Au tomated message] The system [facility] generated this result transmitted ref erence range: 3.93 - 5 .22 M/L. The refe rence range was not u sed to interpret this result as normal/abnor mal. MCHC (test code = 786-4) 28.6 See_Comment L [A utomated message] The system [facility] generated this result transmitted ref erence range: [...] code = 361 See_Comment [Aut omated message] 897-3) The system [facility] generated this result transmitted ref erence range: 150 - 45 0 K/CU MM. The referen ce range was not u sed to interpret this result as normal/abnor mal. MPV (test code = 8.9 fL 9.4-12.3 L 86543-8) nRBC (test code = 413) 0 See_Comment [Aut omated message] The system [facility] generated this result transmitted ref erence range: 0 - 0 /1 00 WBC. The refere nce range was not u sed to interpret this result as normal/abnor mal. Lab Interpretation (test Abnormal code = 67119-2) [facility] (Hemogram only)2020-09-02 04:59:00 Test Item Value Reference Range Interpretation Comments WBC (test code = 6690-2) 10.9 See_Comment H [A utomated message] The system [facility] generated this result transmitted ref erence range: 3.5 - 10 .5 K/L. The refe rence range was not u sed to interpret this result as normal/abnor mal. RBC (test code = 789-8) 4.36 See_Comment [Au tomated message] The system [facility] generated this result transmitted ref erence range: 3.93 - 5 .22 M/L. The refe rence range was not u sed to interpret this result as normal/abnor mal. MCHC (test code = 786-4) 28.6 See_Comment L [A utomated message] The system [facility] generated this result transmitted ref erence range: [...] code = 361 See_Comment [Aut omated message] 727-3) The system [facility] generated this result transmitted ref erence range: 150 - 45 0 K/CU MM. The referen ce range was not u sed to interpret this result as normal/abnor mal. MPV (test code = 8.9 fL 9.4-12.3 L 22584-7) nRBC (test code = 413) 0 See_Comment [Aut omated message] The system [facility] generated this result transmitted ref erence range: 0 - 0 /1 00 WBC. The refere nce range was not u sed to interpret this result as normal/abnor mal. Lab Interpretation (test Abnormal code = 07320-8) [facility] (Hemogram only)2020-09-02 04:59:00 Test Item Value Reference Range Interpretation Comments WBC (test code = 6690-2) 10.9 See_Comment H [A utomated message] The system [facility] generated this result transmitted ref erence range: 3.5 - 10 .5 K/L. The refe rence range was not u sed to interpret this result as normal/abnor mal. RBC (test code = 789-8) 4.36 See_Comment [Au tomated message] The system [facility] generated this result transmitted ref erence range: 3.93 - 5 .22 M/L. The refe rence range was not u sed to interpret this result as normal/abnor mal. MCHC (test code = 786-4) 28.6 See_Comment L [A utomated message] The system [facility] generated this result transmitted ref erence range: [...] code = 361 See_Comment [Aut omated message] 687-3) The system [facility] generated this result transmitted ref erence range: 150 - 45 0 K/CU MM. The referen ce range was not u sed to interpret this result as normal/abnor mal. MPV (test code = 8.9 fL 9.4-12.3 L 07202-0) nRBC (test code = 413) 0 See_Comment [Aut omated message] The system [facility] generated this result transmitted ref erence range: 0 - 0 /1 00 WBC. The refere nce range was not u sed to interpret this result as normal/abnor mal. Lab Interpretation (test Abnormal code = 90849-7) [facility] (HEMOGRAM ONLY)2020-09-02 04:59:00 Test Item Value Reference [...] (BEAKER) (test code = 413) U/S, CORE [id number] 08:58:00Reason for exam:->BIOPSY LEFT ILIOPSOAS MASS US VS CT GUIDED [facility] CENTERName: DANIEL DEL VALLE : 1960 Sex: FFINAL REPORT Procedure: Ultrasound-Guided left iliopsoas/inguinal mass core biopsy Pre/post-procedure diagnosis: Left iliopsoas/inguinal mass Direct Support Professional Caregiver: Abdirahman Chopra MD Assistants: none Sedation: Moderate [...] MDReport Verified Date/Time: 09/01/2020 08:58:59 Reading Location: [facility] Diagnostic Imaging [place] Room [place] [address] 1.310.12 US Core [id number] 08:58:00Interface, External Ris In - 09/01/2020 9:01 AM CDTFINAL REPORT Procedure: Ultrasound-Guided left iliopsoas/inguinal mass core biopsy Pre/post-procedure diagnosis: Left iliopsoas /inguinal mass Direct Support Professional Caregiver: Abdirahman Chopra MD Assistants: none Sedation: Moderate [...] MDReport Verified Date/Time: 09/01/2020 08:58:59 Reading Location: [facility] Diagnostic Imaging Reading Room - [facility] 1.310.12 [facility] 2020-09-01 08:58:00Interface, External Ris In - 09/01/2020 9:01 AM CDTFINAL REPORT Procedure: Ultrasound-Guided left iliopsoas/inguinal mass core biopsy Pre/post-procedure diagnosis: Left iliopsoas /inguinal mass Direct Support Professional Caregiver: Abdirahman Chopra MD Assistants: none Sedation: Moderate [...] MDReport Verified Date/Time: 09/01/2020 08:58:59 Reading Location: [facility] Diagnostic Imaging Reading Room [place] [address] 1.310.12 [facility] 2020-09-01 08:58:00Interface, External Ris In - 09/01/2020 9:01 AM CDTFINAL REPORT Procedure: Ultrasound-Guided left iliopsoas/inguinal mass core biopsy Pre/post-procedure diagnosis: Left iliopsoas /inguinal mass Direct Support Professional Caregiver: Abdirahman Chopra MD Assistants: none Sedation: Moderate [...] MDReport Verified Date/Time: 09/01/2020 08:58:59 Reading Location: [facility] Diagnostic Imaging Reading Room - [facility] 1.310.12 [facility] (HEMOGRAM ONLY)2020-09-01 05:07:00 Test Item Value [...] 0-0 (BEAKER) (test code = 413) PROTHROMBIN TIME/[id number] 04:44:00 Test Item Value Reference Range Interpretation Comments PROTIME (BEAKER) 19.1 seconds 11.9-14.2 H (test code = 759) INR (BEAKER) (test 1.63 See_Comment [Automat ed message] code = 370) The system [facility] generated this result transmitted ref erence range: <=5.90. The reference range was not used to int erpret this result as normal/abnormal . RECOMMENDED COUMADIN/WARFARIN INR THERAPY RANGESSTANDARD DOSE: 2.0 - 3.0 Includes: PROPHYLAXIS forvenous thrombosis, systemic embolization; TREATMENT for venous thrombosis and/or pulmonary embolus.HIGH RISK: Target INR is 2.5-3.5 for patients with mechanical heart valves.Vitamin B12 and [id number] 06:16:00 Test Item Value Reference Range Interpretation Comments Vitamin B12 (test 327 pg/mL 213-816 code = 2132-9) Folate (test code = 3.70 ng/mL See_Comment L [Automa yumiko 2284-8) message] The system which generated this result transmit yumiko reference range : >=7.00. The reference range was not used to interpret this result as normal/abnormal . JESSICA (test code = JESSICA) Transmissions Systems Operator ID - BALA Hernandez Lab Interpretation Abnormal (test code = 23641-1) [facility]Vitamin [facility] and [id number] 06:16:00 Test Item Value Reference Range Interpretation Comments Vitamin B12 (test 327 pg/mL 213-816 code = 2132-9) Folate (test code = 3.70 ng/mL See_Comment L [Automa yumiko 2284-8) message] The system which generated this result transmit yumiko reference range : >=7.00. The reference range was not used to interpret this result as normal/abnormal . JESSICA (test code = JESSICA) Transmissions Systems Operator ID - BALA Hernandez Lab Interpretation Abnormal (test code = 96168-5) [facility] campusVitamin B12 and [id number] 06:16:00 Test Item Value Reference Range Interpretation Comments Vitamin B12 (test 327 pg/mL 213-816 code = 2132-9) Folate (test code = 3.70 ng/mL See_Comment L [Automa yumiko 2284-8) message] The system which generated this result transmit yumiko reference range : >=7.00. The reference range was not used to interpret this result as normal/abnormal . JESSICA (test code = JESSICA) Transmissions Systems Operator ID - BALA Hernandez Lab Interpretation Abnormal (test code = 88169-0) [facility] campusVITAMIN B12 AND [id number] 06:16:00 Test Item Value Reference Range Interpretation Comments VITAMIN B12 (BEAKER) 327 pg/mL 213-816 (test code = 774) FOLATE (BEAKER) 3.70 ng/mL See_Comment L [Automated message] (test code = 362) The system which generated this result transmitted ref erence range: >=7.00. The reference range was not used to interpr et this result as normal/abnormal . Transmissions Systems Operator ID - BALA MPROTHROMBIN TIME/[id number] 05:36:00 Test Item Value Reference Range Interpretation [...] 0-0 (BEAKER) (test code = 413) CT, [id number] 11:32:00Unlisted Reason for Exam - Click Yes and Enter Reason Below->NoWill this procedure require oral contrast?->No [facility] : 1960 Sex: FFINAL REPORT CT, CTA [...] size and patent. Right lower extremity: The [employer], DFA, SFA, and popliteal arteries are patent. Trifurcation vessels are patent. Left lower extremity: The [employer], DFA, SFA, and popliteal arteries are [...] MDReport Verified Date/Time: 08/30/2020 11:32:07 Reading Location: [place] [address] Angio Body Reading Room CT, CTA AAA, W/ BELLA.EXT.RUNOFF 2020-08-30 11:32:00LLE DVT, assess prior pelvic mass, please assess venous phaseAnesthesia:->None [facility] CENTERName: DANIEL DEL VALLE : [...] size and patent. Right lower extremity: The [employer], DFA, SFA, and popliteal arteries are patent. Trifurcation vessels are patent. Left lower extremity: The [employer], DFA, SFA, and popliteal arteries are [...] Jayeport Verified Date/Time: 08/30/2020 11:32:07 Reading Location: [place] [id number] Angio Body Reading Room CT abdomen/pelvis with [...] size and patent. Right lower extremity: The [employer], DFA, SFA, and popliteal arteries are patent. Trifurcation vessels are patent. Left lower extremity: The ETHYLENE PLANT OPERATOR, DFA, SFA, and popliteal arteries are [...] edema.No evidence remote metastatic disease. Signed: Kale Jya MDReport Verified Date/Time: 08/30/2020 11:32:07 Reading Location: [facility] P048 Angio Body Reading Room [facility] AAA and [id number] 11:32:00Interface, External Ris In - 08/30/2020 11:34 [...] size and patent. Right lower extremity: The ETHYLENE PLANT OPERATOR, DFA, SFA, and popliteal arteries are patent. Trifurcation vessels are patent. Left lower extremity: The ETHYLENE PLANT OPERATOR, DFA, SFA, and popliteal arteries are [...] MDReport Verified Date/Time: 08/30/2020 11:32:07 Reading Location: [place] [id number] Angio Body Reading Room [facility] abdomen/pelvis with IV [id number] 11:32:00Interface, External Ris In - 08/30/2020 11:34 [...] size and patent. Right lower extremity: The ETHYLENE PLANT OPERATOR, DFA, SFA, and popliteal arteries are patent. Trifurcation vessels are patent. Left lower extremity: The ETHYLENE PLANT OPERATOR, DFA, SFA, and popliteal arteries are [...] MDReport Verified Date/Time: 08/30/2020 11:32:07 Reading Location: [facility] P048 Angio Body Reading Room [facility] AAA and [id number] 11:32:00Interface, External Ris In - 08/30/2020 11:34 [...] size and patent. Right lower extremity: The ETHY[employer]E PLANT OPERATOR, DFA, SFA, and popliteal arteries are patent. Trifurcation vessels are patent. Left lower extremity: The ETHYLENE PLANT OPERATOR, DFA, SFA, and popliteal arteries are [...] MDReport Verified Date/Time: 08/30/2020 11:32:07 Reading Location: [place] [address] Angio Body Reading Room [facility] abdomen/pelvis with IV [id number] 11:32:00Interface, External Ris In - 08/30/2020 11:34 [...] size and patent. Right lower extremity: The ETHYLENE PLANT OPERATOR, DFA, SFA, and popliteal arteries are patent. Trifurcation vessels are patent. Left lower extremity: The ETHYLENE PLANT OPERATOR, DFA, SFA, and popliteal arteries are [...] Jayeport Verified Date/Time: 08/30/2020 11:32:07 Reading Location: [facility] B1 P048 Angio Body Reading Room [facility] AAA and [id number] 11:32:00Interface, External Ris In - 08/30/2020 11:34 [...] size and patent. Right lower extremity: The ETHYLENE PLANT OPERATOR, DFA, SFA, and popliteal arteries are patent. Trifurcation vessels are patent. Left lower extremity: The ETHYLENE PLANT OPERATOR, DFA, SFA, and popliteal arteries are [...] [place]eport Verified Date/Time: 08/30/2020 11:32:07 Reading Location: [facility] P048 Angio Body Reading Room [facility] CenterArterial doppler leg, [id number] 09:31:54[facility] MKCKESSON CPACS Left Impression1. The [...] + + + + + + !Mid AUTO CLUTCH REBUILDER ! !59.4 ! ! ! + + +-- + + + !Dist AUTO CLUTCH REBUILDER ! !61.6 ! ! ! + + [...] Study 08/29/2020 NEELAM Age 60 Visit Number [id number] Gender Female Accession Number [id number] Date of 1960 Referring Tricia Hernandez Room Number 4286 Physician Richard Portal Developer Stacy Benitez MD RVT Physician ProcedureType [...] + + + + + + !Mid AUTO CLUTCH REBUILDER ! !59.4 ! ! ! + + + + + + !Dist AUTO CLUTCH REBUILDER ! !61.6 ! ! ! + + + ---------+ + + !Prox JANETTE ! !64.3 ! ! ! + + + +---- + + !Mid JANETTE ! !80.3 ! ! ! + + + + + + !Dist JANETTE ! !67.1 ! ! ! + + + + + +[facility]Arterial doppler leg, [id number] 09:31:54[facility]CHO HEARTLAB MKCKESSON [facility] Left Impression1. The common femoral, profunda [...] + + + + + + !Mid AUTO CLUTCH REBUILDER ! !59.4 ! ! ! + + +-- + + + !Dist AUTO CLUTCH REBUILDER ! !61.6 ! ! ! + + [...] Study 08/29/2020 NEELAM Age 60 Visit Number [id number] Gender Female Accession Number [id number] Date of 1960 Referring Tricia Hernandez Room Number 0906 Physician Richard Portal Developer Stacy Benitez MD RVT Physician ProcedureType [...] + + + + + + !Mid AUTO CLUTCH REBUILDER ! !59.4 ! ! ! + + + + + + !Dist AUTO CLUTCH REBUILDER ! !61.6 ! ! ! + + + ---------+ + + !Prox JANETTE ! !64.3 ! ! ! + + + +---- + + !Mid JANETTE ! !80.3 ! ! ! + + + + + + !Dist JANETTE ! !67.1 ! ! ! + + + + + +[facility] campusArterial doppler leg, [id number] 09:31:54[facility] ECHO HEARTLAB MKCK[facility]ON [facility] Left Impression1. The common femoral, profunda [...] + + + + + + !Mid AUTO CLUTCH REBUILDER ! !59.4 ! ! ! + + +-- + + + !Dist AUTO CLUTCH REBUILDER ! !61.6 ! ! ! + + [...] Study 08/29/2020 NEELAM Age 60 Visit Number [id number] Gender Female Accession Number [id number] Date of 1960 Referring Tricia Hernandez Room Number 4886 Physician Richard Portal Developer Stacy Proctor Interpreting Vivek Benitez MD RVT [...] + + + + + + !Mid AUTO CLUTCH REBUILDER ! !59.4 ! ! ! + + + + + + !Dist AUTO CLUTCH REBUILDER ! !61.6 ! ! ! + + + ---------+ + + !Prox JANETTE ! !64.3 ! ! ! + + + +---- + + !Mid JANETTE ! !80.3 ! ! ! + + + + + + !Dist JANETTE ! !67.1 ! ! ! + + + + + +[facility] and Tnmkrcyjiy6062-03-55 06:17:00 Test Item Value Reference Range Interpretation [...] mL/min/1.73 [place] [address]-7) NOT ACCURATE CREATININE CLEARANCE IN PREDICTING GLOMERULAR FILTRATION RATE . ESTIMATED GFR I S NOT APPLICABLE FOR DIALYSIS PATIEN TS. JESSICA (test code = Transmissions Systems Operator ID - BS JESSICA) [facility] and Sxxlsjznrn2517-58-64 06:17:00 Test Item Value Reference Range Interpretation [...] mL/min/1.73 [place] [address]-5) NOT ACCURATE CREATININE CLEARANCE IN PREDICTING GLOMERULAR FILTRATION RATE . ESTIMATED GFR I S NOT APPLICABLE FOR DIALYSIS PATIEN TS. JESSICA (test code = Transmissions Systems Operator ID - BS JESSICA) [facility] and [id number] 06:17:00 Test Item Value Reference Range Interpretation [...] mL/min/1.73 [place] [address]-0) NOT ACCURATE CREATININE CLEARANCE IN PREDICTING GLOMERULAR FILTRATION RATE . ESTIMATED GFR I S NOT APPLICABLE FOR DIALYSIS PATIEN TS. JESSICA (test code = Transmissions Systems Operator ID - BS JESSICA) [facility] campusBUN AND CREATININE W/[id number] 06:17:00 Test Item Value Reference Range Interpretation Comments BLOOD UREA NITROGEN 13 mg/dL 7-21 (BEAKER) (test code = 354) CREATININE (BEAKER) 0.72 mg/dL 0.57-1.25 (test code = 358) BUN/CREAT RATIO 18 For a normal (BEAKER) (test code individu al on a = 5394072105) normal diet, t he reference inter jewel for the mass ra nabil ranges between 12:1 and 20:1 (BUN i n mg/dL/creatinin e in mg/dL) EGFR (BEAKER) (test 100 mL/min/1.73 ESTIM ATED GFR IS code = 1092) sq m NOT ACCURATE CREATININE CLEARANCE IN PREDICTING GLOMERULAR FILTRATION RATE . ESTIMATED GFR I S NOT APPLICABLE FOR DIALYSIS PATIEN TS. Transmissions Systems Operator ID - BSCBC (HEMOGRAM ONLY)2020-08-30 05:50:00 [...] 0-0 (BEAKER) (test code = 413) PROTHROMBIN TIME/[id number] 05:48:00 Test Item Value Reference Range Interpretation Comments PROTIME (BEAKER) 21.5 seconds 11.9-14.2 H (test code = 759) INR (BEAKER) (test 1.89 See_Comment [Automat ed message] code = 370) The system [facility] generated this result transmitted ref erence range: [...] 1.0-2.0 units/mL once daily enoxaparin Ref: CHEST 2012;141:[id number] Lab Interpretation (test Normal code = 93235-9) [facility] campusHeparin Assay - Low Molecular [id number] 14:07:00 Test Item Value Reference Range Interpretation Comments Anti 10A-Lovenox (test 0.85 u/ml 0.6-2 code = 1605) JESSICA (test code = JESSICA) Anti-Factor 10-A Level (Heparin Assay for Low Molecular Weight Heparin)Monitoring Guidelines: Blood samples should be obtained 4 hours post subcutaneous injection (time of Peak level) Therapeutic Peak Levels: 0.6-1.0 units/mL twice daily enoxaparin 1.0-2.0 units/mL once daily enoxaparin Ref: CHEST 2012;141:[id number] Lab Interpretation (test Normal code = 85786-1) [facility] campusHeparin Assay - Low Molecular [id number] 14:07:00 Test Item Value Reference Range Interpretation Comments Anti 10A-Lovenox (test 0.85 u/ml 0.6-2 code = 1605) JESSICA (test code = JESSICA) Anti-Factor 10-A Level (Heparin Assay for Low Molecular Weight Heparin)Monitoring Guidelines: Blood samples should be obtained 4 hours post subcutaneous injection (time of Peak level) Therapeutic Peak Levels: 0.6-1.0 units/mL twice daily enoxaparin 1.0-2.0 units/mL once daily enoxaparin Ref: CHEST 2012;141:[id number] Lab Interpretation (test Normal code = 40289-5) [facility] campusHEPARIN ASSAY - LOW MOLECULAR [id number] 14:07:00 Test Item Value Reference Range Interpretation Comments LOVENOX-ANTI 10A (BEAKER) (test 0.85 u/ml 0.60-2.00 code = 1605) Anti-Factor 10-A Level (Heparin Assay for Low Molecular Weight Heparin)Monitoring Guidelines: Blood samples should be obtained 4 hours post subcutaneous injection (time of Peak level) Therapeutic Peak Levels: 0.6-1.0 units/mL twice daily enoxaparin 1.0-2.0 units/mL once daily enoxaparinRef: CHEST 2012;141:[id number] (HEMOGRAM ONLY)2020-08-29 13:22:00 Test Item Value Reference [...] 0-0 (BEAKER) (test code = 413) PROTHROMBIN TIME/[id number] 05:41:00 Test Item Value Reference Range Interpretation Comments PROTIME (BEAKER) 17.4 seconds 11.9-14.2 H (test code = 759) INR (BEAKER) (test 1.45 See_Comment [Automat ed message] code = 370) The system [facility] [facility] generated this result transmitted ref erence range: <=5.90. The reference range was not used to int erpret this result as normal/abnormal . RECOMMENDED COUMADIN/WARFARIN INR THERAPY RANGESSTANDARD DOSE: 2.0 - 3.0 Includes: PROPHYLAXIS forvenous thrombosis, systemic embolization; TREATMENT for venous thrombosis and/or pulmonary embolus.HIGH RISK: Target INR is 2.5-3.5 for patients with mechanical heart valves.BUN AND CREATININE W/[id number] 17:04:00 Test Item Value Reference Range Interpretation Comments BLOOD UREA NITROGEN 9 mg/dL 7-21 (BEAKER) (test code = 354) CREATININE (BEAKER) 0.79 mg/dL 0.57-1.25 (test code = 358) BUN/CREAT RATIO 11 For a normal (BEAKER) (test code individu al on a = 8978677695) normal diet, t he reference inter jewel for the mass ra nabil ranges between 12:1 and 20:1 (BUN i n mg/dL/creatinin e in mg/dL) EGFR (BEAKER) (test 90 mL/min/1.73 ESTIMA YUMIKO GFR IS code = 1092) sq m NOT ACCURATE CREATININE CLEARANCE IN PREDICTING GLOMERULAR FILTRATION RATE . ESTIMATED GFR I S NOT APPLICABLE FOR DIALYSIS PATIEN TS. Transmissions Systems Operator ID - DBVenous doppler leg, [id number] 15:52:54Ejection FractionSLEH ECHO HEARTLAB MKCKESSON [facility] Left Impression1. There is partial echolucent [...] Study 08/28/2020 NEELAM Age 60 Visit Number [id number] Gender Female Accession Number [id number] Date of 1960 Referring [facility] Room Number 2546 Physician Elizabethnh Portal Developer Jarad Mayberry Interpreting Vivek Benitez MD [...] in cm/s ; Diameters are measured in [facility] Venous doppler leg, [id number] 15:52:54Ejection FractionSLE ECHO HEARTLAB MKCKESSON [facility] Left Impression1. There is partial echolucent [...] Study 08/28/2020 NEELAM Age 60 Visit Number [id number] Gender Female Accession Number [id number] Date of 1960 Referring Tricia Room Number 9716 Physician Richard Portal Developer Jarad Mayberry Interpreting Vivek Benitez MD [...] in cm/s ; Diameters are measured in [facility] Venous doppler leg, [id number] 15:52:54Ejection FractionSLE ECHO HEARTLAB MKCKESSON [facility] Left Impression1. There is partial echolucent [...] Extremities DVT Study Demographics Patient Name DANIEL DE LVALLE Date of Study 08/28/2020 NEELAM Age 60 Visit Number [id number] Gender Female Accession Number [id number] Date of 1960 Referring [facility] Room Number 7006 Physician Richard Portal Developer Jarad Mayberry Interpreting Vivek Benitez MD [...] in cm/s ; Diameters are measured in [facility] SARS-COV2/RT-PCR ([facility] & REF LABS)2020-08-28 12:32:00 Test Item Value Reference Range Interpretation Comments SARS-COV2/RT-PCR (test Negative Not Detected, Negative, code = 2406573) See external report for linked test SARS-COV-2 PERFORMING LAB [facility] (test code = 8405231) Negative result for this test determines that [...] 564(g) of the Act.Fact Sheet for Healthcare Providers:https://www.[employer]/sites/default/files/product/documents/Fact_Shee q_NE_Svbjqvhyp_Yuax_MQLL-AdI-7.pdfFact Sheet for Healthcare Patients:https://www.[employer]com/sites/default/files/product/ documents/Ikuc_Hrzby_Cwbddasb_Ziot_ZMWT-WkP-7.pdfPerforming Laboratory:[facility], [place] [address]IVPNHPALBXW TIME/INR 2020-08-28 05:15:00 Test Item Value Reference Range Interpretation Comments PROTIME (BEAKER) 16.1 seconds 11.9-14.2 H (test code = 759) INR (BEAKER) (test 1.31 See_Comment [Automat ed message] code = 370) The system [facility] [facility] generated this result transmitted ref erence range: [...] 0-0 (BEAKER) (test code = 413) PROTHROMBIN TIME/[id number] 16:24:00 Test Item Value Reference Range Interpretation Comments PROTIME (BEAKER) 14.7 seconds 11.9-14.2 H (test code = 759) INR (BEAKER) (test 1.20 See_Comment [Automat ed message] code = 370) The system [employer] [facility] generated this result transmitted ref erence range: [...] 0-0 (BEAKER) (test code = 413) PROTHROMBIN TIME/[id number] 14:53:00 Test Item Value Reference Range Interpretation Comments PROTIME (BEAKER) 10.1 seconds 9.8-12.0 (test code = 759) INR (BEAKER) (test 0.94 See_Comment [Automat ed message] code = 370) The system [facility] [facility] generated this result transmitted ref erence range: [...] 0-0 (BEAKER) (test code = 413) PROTHROMBIN TIME/[id number] 19:23:00 Test Item Value Reference Range Interpretation Comments PROTIME (BEAKER) 15.0 seconds 11.9-14.2 H (test code = 759) INR (BEAKER) (test 1.20 See_Comment [Automat ed message] code = 370) The system [employer] [facility] generated this result transmitted ref erence range: [...] 0-1 PERCENT (BEAKER) (test code = 2801) [id number] 07:38:00 Test Item Value Reference Range Interpretation Comments PTT (test code = 62.8 See_Comment H [Automated message] 81831-3) The system [employer] [facility] generated this result transmitted ref erence range: 22.5 - 3 6.0 seconds. The reference range was not used to int erpret this result as normal/abnormal . Lab Interpretation (test Abnormal code = 58904-8) [facility]aPTT2021-[facility]-11 07:38:00 Test Item Value Reference Range Interpretation Comments PTT (test code = 62.8 See_Comment H [Automated message] 06291-5) The system [facility] [facility] generated this result transmitted ref erence range: 22.5 - 3 6.0 seconds. The reference range was not used to int erpret this result as normal/abnormal . Lab Interpretation (test Abnormal code = 95747-3) [facility]aPTT2021-06-11 07:38:00 Test Item Value Reference Range Interpretation Comments PTT (test code = 62.8 See_Comment H [Automated message] 96375-4) The system [employer] [facility] generated this result transmitted ref erence range: 22.5 - 3 6.0 seconds. The reference range was not used to int erpret this result as normal/abnormal . Lab Interpretation (test Abnormal code = 79906-4) [facility] campusAPTT2021-06-11 07:38:00 Test Item Value Reference Range Interpretation [...] WBC 0-0 (BEAKER) (test code = 413) [id number] 23:09:00 Test Item Value Reference Range Interpretation Comments PARTIAL THROMBOPLASTIN TIME 48.3 seconds 22.5-36.0 H (BEAKER) (test code = 760) [id number] 12:59:00 Test Item Value Reference Range Interpretation Comments PARTIAL THROMBOPLASTIN TIME 33.5 seconds 22.5-36.0 (BEAKER) (test code = 760) Basic Metabolic [id number] 06:56:00 Test Item Value Reference Range Interpretation Comments Sodium (test code = 140 meq/L 427-482 5743-2) Potassium (test 4.4 meq/L 3.5-5.1 code = 2823-3) Chloride (test code 100 meq/L 98-107 = 2075-0) CO2 (test code = 27 meq/L -29 8-9) BUN (test code = 13 mg/dL 7- 3094-0) Creatinine (test 0.81 mg/dL 0.57-1.25 code = 2160-0) Glucose (test code 101 mg/dL 70-105 = 2345-7) Calcium (test code 9.7 mg/dL 8.4-10.2 = 25625-3) EGFR (test code = 87 mL/min/1.[place] [address]-2) NOT ACCURATE CREATININE CLEARANCE IN PREDICTING GLOMERULAR FILTRATION RATE . ESTIMATED GFR I S NOT APPLICABLE FOR DIALYSIS PATIEN TS. LOPEZ (test code = Transmissions Systems Operator ID - JESSICA) BALA [facility] Metabolic [id number] 06:56:00 Test Item Value Reference Range Interpretation Comments Sodium (test code = 140 meq/L 693-202 4170-2) Potassium (test 4.4 meq/L 3.5-5.1 code = 2823-3) Chloride (test code 100 meq/L 98-107 = 2075-0) CO2 (test code = 27 meq/L 2027-11) BUN (test code = 13 mg/dL 10-04 3094-0) Creatinine (test 0.81 mg/dL 0.57-1.25 code = 2160-0) Glucose (test code 101 mg/dL 70-105 = 2345-7) Calcium (test code 9.7 mg/dL 8.4-10.2 = 95541-4) EGFR (test code = 87 mL/min/1.[place] [address]-8) NOT ACCURATE CREATININE CLEARANCE IN PREDICTING GLOMERULAR FILTRATION RATE . ESTIMATED GFR I S NOT APPLICABLE FOR DIALYSIS PATIEN TS. JESSICA (test code = Transmissions Systems Operator ID - JESSICA) [facility] Metabolic [id number] 06:56:00 Test Item Value Reference Range Interpretation Comments Sodium (test code = 140 meq/L 598-867 9857-2) Potassium (test 4.4 meq/L 3.5-5.1 code = 2823-3) Chloride (test code 100 meq/L 98-107 = 2075-0) CO2 (test code = 27 meq/L 2027-11) BUN (test code = 13 mg/dL 10-04 3094-0) Creatinine (test 0.81 mg/dL 0.57-1.25 code = 2160-0) Glucose (test code 101 mg/dL 70-105 = 2345-7) Calcium (test code 9.7 mg/dL 8.4-10.2 = 32295-6) EGFR (test code = 87 mL/min/1.73 [place] [address]-4) NOT ACCURATE CREATININE CLEARANCE IN PREDICTING GLOMERULAR FILTRATION RATE . ESTIMATED GFR I S NOT APPLICABLE FOR DIALYSIS PATIEN TS. JESSICA (test code = Transmissions Systems Operator ID - JESSICA) [facility] METABOLIC [id number] 06:56:00 Test Item Value Reference Range Interpretation [...] S NOT APPLICABLE FOR DIALYSIS PATIEN TS. Transmissions Systems Operator ID - [facility] [place]HEMOGRAM ONLY)2020-08-24 06:41:00 Test Item Value Reference [...] WBC 0-0 (BEAKER) (test code = 413) [id number] 06:32:00 Test Item Value Reference Range Interpretation Comments PARTIAL THROMBOPLASTIN TIME 34.7 seconds 22.5-36.0 (BEAKER) (test code = 760) [id number] 22:03:00 Test Item Value Reference Range Interpretation Comments PARTIAL THROMBOPLASTIN TIME 36.0 seconds 22.5-36.0 (BEAKER) (test code = 760) [id number] 14:36:00 Test Item Value Reference Range Interpretation [...] (BEAKER) (test code = 413) BASIC METABOLIC [id number] 05:47:00 Test Item Value Reference Range Interpretation [...] S NOT APPLICABLE FOR DIALYSIS PATIEN TS. Transmissions Systems Operator ID - BAL [facility] (HEMOGRAM ONLY)2020-08-23 05:19:00 Test Item Value [...] = 413) U/S, EXTREMITY, LOWER, LEFT (NON-VASCULAR) [id number] 15:15:00Please obtain biopsy of inguinal mass. Pending discharge Reason for exam:->Large left inguinal mass / lymphadenopathy [facility] 1960 [...] MDReport Verified Date/Time: 08/22/2020 15:15:14 Reading Location: [address] Consult Reading Room US extremity non-vascular limited luvq9908-41-64 15:15:00 Interface, External Ris In - 08/22/2020 [...] MDReport Verified Date/Time: 08/22/2020 15:15:14 Reading Location: [address] Consult Reading Room Electronically signed by: RICK MUNIZ MDon 08/22/2020 03:15 [facility] [id number] 15:15:00Interface, External Ris In - 08/22/2020 3:17 [...] Muniz Verified Date/Time: 08/22/2020 15:15:14 Reading Location: [address] Consult Reading Room Electronically signed by: Cassandra QUIJANO 08/22/2020 03:15 [facility]US [facility] non- vascular limited pcse0420-04-54 15:15:00Interface, External Ris In - 08/22/2020 3:17 [...] Muniz Verified Date/Time: 08/22/2020 15:15:14 Reading Location: [facility] Consult Reading Room Electronically signed by: Cassandra QUIJANO 08/22/2020 03:15 [facility] CenterBAS[facility] METABOLIC [id number] 06:22:00 Test Item Value Reference Range Interpretation [...] S NOT APPLICABLE FOR DIALYSIS PATIEN TS. Transmissions Systems Operator ID - BALA [facility] (HEMOGRAM ONLY)2020-08-22 05:57:00 [...] (BEAKER) (test code = 413) COMPREHENSIVE METABOLIC [id number] 07:02:00 Test Item Value Reference Range Interpretation [...] S NOT APPLICABLE FOR DIALYSIS PATIEN TS. Transmissions Systems Operator ID - BALA MPROTHROMBIN TIME/[id number] 06:42:00 Test Item Value Reference Range Interpretation Comments PROTIME (BEAKER) 13.7 seconds 11.9-14.2 (test code = 759) INR (BEAKER) (test 1.08 See_Comment [Automat ed message] code = 370) The system [employer] generated this result transmitted ref erence range: [...] 413) RAD, SPINE, LUMBAR, 2 OR 3 [id number] 20:22:00Reason for exam:->low back [facility] : 1960 Sex: [...] LEFT 2020-08-20 20:22:00Reason for exam:->knee pain, fall [facility] DANIEL DEL VALLE NEELAM : 1960 [...] 2-3 VIEWS, LEFT, TO INCL PELVIS WHEN [id number] 20:22:00Reason for exam:->hip pain, fall [facility] NEELAM : 1960 [...] Date/Time: 08/20/2020 20:22:11 XR hip 2 views [id number] 20:22:00Interface, External Ris In - 08/20/2020 8:24 [...] Prateek Fung MDRcarylort Verified Date/Time: 08/20/2020 20:22:11 [facility] [id number] 20:22:00Interface, External Ris In - 08/20/2020 8:24 [...] Prateek Fung MDRcarylort Verified Date/Time: 08/20/2020 20:22:11 [facility] 2 [facility] left 2020-08-20 [...] Prateek Fung MDReport Verified Date/Time: 08/20/2020 20:22:11 [facility]XR [facility] lumbar 2 or 3 [id number] 20:22:00Interface, External Ris In - 08/20/2020 8:24 [...] Prateek Fung MDReport Verified Date/Time: 08/20/2020 20:22:11 [facility] lumbar 2 or 3 [id number] 20:22:00Interface, External Ris In - 08/20/2020 8:24 [...] Prateek Fung MDReport Verified Date/Time: 08/20/2020 20:22:11 [facility] lumbar 2 or 3 [id number] 20:22:00Interface, External Ris In - 08/20/2020 8:24 [...] Prateek Fung MDReport Verified Date/Time: 08/20/2020 20:22:11 [facility] 3 views left 2020-08-20 [...] Prateek Fung MDReport Verified Date/Time: 08/20/2020 20:22:11 [facility] 3 views [id number] 20:22:00Interface, External Ris In - 08/20/2020 8:24 [...] Prateek Fung MDRcarylort Verified Date/Time: 08/20/2020 20:22:11 [facility] 3 views left 2020-08-20 [...] Prateek Fung MDReport Verified Date/Time: 08/20/2020 20:22:11 [facility] CenterLactate dehydrogenase (LDH)2020-08-20 15:47:00 Test Item Value Reference Range Interpretation Comments LDH (test code = 2532-0) 228 U/L 125-220 H JESSICA (test code = JESSICA) Transmissions Systems Operator ID - DB Lab Interpretation (test Abnormal code = 35180-0) [facility] campusMagnesium2021-06-06 15:47:00 Test Item Value Reference Range Interpretation Comments Magnesium (test code = 2.2 mg/dL 1.6-2.6 43563-4) JESSICA (test code = JESSICA) Transmissions Systems Operator ID - DB Lab Interpretation (test Normal code = 94930-6) [facility] campusPhosphorus2021-06-06 15:47:00 Test Item Value Reference Range Interpretation Comments Phosphorus (test code = 3.1 mg/dL 2.3-4.7 2777-1) JESSICA (test code = JESSICA) Transmissions Systems Operator ID - DB Lab Interpretation (test Normal code = 48390-0) [facility] campusUric [id number] 15:47:00 Test Item Value Reference Range Interpretation Comments Uric Acid (test code = 5.1 mg/dL 2.6-7.2 3084-1) JESSICA (test code = JESSICA) Transmissions Systems Operator ID - DB Lab Interpretation (test Normal code = 48533-7) [facility]actate [facility] (LDH)2020-08-20 15:47:00 Test Item Value Reference Range Interpretation Comments LDH (test code = 2532-0) 228 U/L 125-220 H JESSICA (test code = JESSICA) Transmissions Systems Operator ID - DB Lab Interpretation (test Abnormal code = 94144-9) [facility]2021-[facility] 15:47:00 Test Item Value Reference Range Interpretation Comments Magnesium (test code = 2.2 mg/dL 1.6-2.6 57019-7) JESSICA (test code = JESSICA) Transmissions Systems Operator ID - DB Lab Interpretation (test Normal code = 78589-8) [facility]2021-[facility] 15:47:00 Test Item Value Reference Range Interpretation Comments Phosphorus (test code = 3.1 mg/dL 2.3-4.7 2777-1) JESSICA (test code = JESSICA) Transmissions Systems Operator ID - DB Lab Interpretation (test Normal code = 71697-3) [facility]Uric [id number] 15:47:00 Test Item Value Reference Range Interpretation Comments Uric Acid (test code = 5.1 mg/dL 2.6-7.2 3084-1) JESSICA (test code = JESSICA) Transmissions Systems Operator ID - DB Lab Interpretation (test Normal code = 84293-4) [facility]Lactate dehydrogenase (LDH)2020-08-20 15:47:00 Test Item Value Reference Range Interpretation Comments LDH (test code = 2532-0) 228 U/L 125-220 H JESSICA (test code = JESSICA) Transmissions Systems Operator ID - DB Lab Interpretation (test Abnormal code = 37143-9) [facility]2021-[facility] 15:47:00 Test Item Value Reference Range Interpretation Comments Magnesium (test code = 2.2 mg/dL 1.6-2.6 03138-0) JESSICA (test code = JESSICA) Transmissions Systems Operator ID - DB Lab Interpretation (test Normal code = 76079-6) [facility]21-[facility] 15:47:00 Test Item Value Reference Range Interpretation Comments Phosphorus (test code = 3.1 mg/dL 2.3-4.7 2777-1) JESSICA (test code = JESSICA) Transmissions Systems Operator ID - DB Lab Interpretation (test Normal code = 21130-1) [facility] [id number] 15:47:00 Test Item Value Reference Range Interpretation Comments Uric Acid (test code = 5.1 mg/dL 2.6-7.2 3084-1) JESSICA (test code = JESSICA) Transmissions Systems Operator ID - DB Lab Interpretation (test Normal code = 91463-5) [facility] campusCOMPREHENSIVE METABOLIC [id number] 15:47:00 Test Item Value Reference Range Interpretation [...] S NOT APPLICABLE FOR DIALYSIS PATIEN TS. Transmissions Systems Operator ID - [id number] 15:47:00 Test Item Value Reference Range Interpretation Comments MAGNESIUM (BEAKER) (test code = 2.2 mg/dL 1.6-2.6 627) Transmissions Systems Operator ID - [id number] 15:47:00 Test Item Value Reference Range Interpretation Comments PHOSPHORUS (BEAKER) (test code = 3.1 mg/dL 2.3-4.7 604) Transmissions Systems Operator ID - DBURIC [id number] 15:47:00 Test Item Value Reference Range Interpretation Comments URIC ACID (BEAKER) (test code = 5.1 mg/dL 2.6-7.2 773) Transmissions Systems Operator ID - DBLACTATE DEHYDROGENASE (LDH)2020-08-20 15:47:00 Test Item Value Reference Range Interpretation Comments LACTATE DEHYDROGENASE (BEAKER) (test 228 U/L 125-220 H code = 635) Transmissions Systems Operator ID - DBCBC W/PLT COUNT & AUTO [id number] 15:26:00 Test Item Value Reference Range Interpretation [...] (test code = 2801) AFB CULTURE + [id number] 17:40:00 Test Item Value Reference Range Interpretation Comments CULTURE (BEAKER) (test No acid-fast bacilli code = 1095) isolated in 42 days AFB SMEAR (BEAKER) No acid fast bacilli (test code = 994) seen AFB CULTURE + [id number] 16:47:00 Test Item Value Reference Range Interpretation Comments CULTURE (BEAKER) (test No acid-fast bacilli code = 1095) isolated in 42 days AFB SMEAR (BEAKER) No acid fast bacilli (test code = 994) seen FUNGUS CULTURE + [id number] 17:06:00 Test Item Value Reference Range Interpretation Comments CULTURE (BEAKER) (test No fungus isolated in code = 1095) 28 days FUNGUS SMEAR (BEAKER) No fungi seen (test code = 1406) FUNGUS CULTURE + [id number] 20:59:00 Test Item Value Reference Range Interpretation Comments CULTURE (BEAKER) (test No fungus isolated in code = 1095) 28 days FUNGUS SMEAR (BEAKER) No fungi seen (test code = 1406) POCT-GLUCOSE [id number] 17:00:00 Test Item Value Reference Range Interpretation Comments POC-GLUCOSE METER 193 mg/dL 70-110 H TESTED AT [facility] [address] (BEAKER) (test code [facility] = 1538) [place] [address] POCT-GLUCOSE [id number] 11:50:00 Test Item Value Reference Range Interpretation Comments POC-GLUCOSE METER 185 mg/dL 70-110 H TESTED AT [facility] [address] (BEAKER) (test code [facility] = 1538) [place] [address] CBC W/PLT COUNT & AUTO [id number] 09:22:00 Test Item Value Reference Range Interpretation [...] (BEAKER) (test code = 2801) BASIC METABOLIC [id number] 09:21:00 Test Item Value Reference Range Interpretation [...] NOT APPLICABLE FOR DIALYSIS PATIEN TS. C-REACTIVE [id number] 09:21:00 Test Item Value Reference Range Interpretation Comments C-REACTIVE PROTEIN (BEAKER) (test 2.31 mg/dL 0.00-0.50 H code = 676) HEPATIC FUNCTION [id number] 09:20:00 Test Item Value Reference Range Interpretation [...] code = 47 U/L 6-50 347) POCT-GLUCOSE [id number] 06:53:00 Test Item Value Reference Range Interpretation Comments POC-GLUCOSE METER 102 mg/dL 70-110 TESTED AT [facility] [address] (BEAKER) (test code [facility] = 1538) [place] [address] POCT-GLUCOSE [id number] 21:32:00 Test Item Value Reference Range Interpretation Comments POC-GLUCOSE METER 212 mg/dL 70-110 H TESTED AT [facility] [address] (BEAKER) (test code [facility] = 1538) [place] [address] POCT-GLUCOSE [id number] 16:26:00 Test Item Value Reference Range Interpretation Comments POC-GLUCOSE METER 170 mg/dL 70-110 H TESTED AT [facility] [address] (BEAKER) ([facility] [place] [address] POCT-GLUCOSE [id number] 05:53:00 Test Item Value Reference Range Interpretation Comments POC-GLUCOSE METER 90 mg/dL 70-110 TESTED AT [facility] [address] (BEAKER) (test code = [facility] 1538) [place] [address] POCT-GLUCOSE [id number] 21:52:00 Test Item Value Reference Range Interpretation Comments POC-GLUCOSE METER 130 mg/dL 70-110 H TESTED AT [facility] [address] (BEAKER) (test code [facility] 1538) [place] [address] POCT-GLUCOSE [id number] 17:16:00 Test Item Value Reference Range Interpretation Comments POC-GLUCOSE METER 177 mg/dL 70-110 H TESTED AT [facility] [address] (BEAKER) (test code [facility] 1538) [place] [address] [id number] 16:02:00 Test Item Value Reference Range Interpretation Comments POTASSIUM (BEAKER) (test code = 3.9 meq/L 3.5-5.5 379) POCT-GLUCOSE [id number] 12:10:00 Test Item Value Reference Range Interpretation Comments POC-GLUCOSE METER 176 mg/dL 70-110 H TESTED AT [facility] [address] (BEAKER) (test code [facility] 1538) [place] [address] POCT-GLUCOSE [id number] 05:57:00 Test Item Value Reference Range Interpretation Comments POC-GLUCOSE METER 113 mg/dL 70-110 H TESTED AT [facility] [address] (BEAKER) (test code [facility] 1538) [place] [address] POCT-GLUCOSE [id number] 21:53:00 Test Item Value Reference Range Interpretation Comments POC-GLUCOSE METER 160 mg/dL 70-[address] [place] [address] [address] (BEAKER) (test code [facility] = 1538) [place] [address] POCT-GLUCOSE [id number] 16:49:00 Test Item Value Reference Range Interpretation Comments POC-GLUCOSE METER 158 mg/dL 70-110 H TESTED AT [facility] [address] (BEAKER) (test code [facility] = 1538) [place] [address] POCT-GLUCOSE [id number] 12:14:00 Test Item Value Reference Range Interpretation Comments POC-GLUCOSE METER 162 mg/dL 70-110 H TESTED AT [facility] [address] (BEAKER) (test code [facility] = 1538) [place] [address] BASIC METABOLIC [id number] 04:57:00 Test Item Value Reference Range Interpretation [...] PATIEN TS. CBC W/PLT COUNT & AUTO [id number] 04:28:00 Test Item Value Reference Range Interpretation [...] PERCENT (BEAKER) (test code = 2801) POCT-GLUCOSE [id number] 20:44:00 Test Item Value Reference Range Interpretation Comments POC-GLUCOSE METER 168 mg/dL 70-110 H TESTED AT [facility] [address] (BEAKER) (test code [facility] = 1538) [place] [address] POCT-GLUCOSE [id number] 16:10:00 Test Item Value Reference Range Interpretation Comments POC-GLUCOSE METER 228 mg/dL 70-110 H TESTED AT [facility] [address] [facility] (test code [facility] = 1538) [place] [address] POCT-GLUCOSE [id number] 13:15:00 Test Item Value Reference Range Interpretation Comments POC-GLUCOSE METER 182 mg/dL 70-110 H TESTED AT [facility] [address] (BEAKER) (test code [facility] = 1538) [place] [address] POCT-GLUCOSE [id number] 06:57:00 Test Item Value Reference Range Interpretation Comments POC-GLUCOSE METER 153 mg/dL 70-110 H TESTED AT [facility] [address] [facility] (test code [employer] [facility] = 1538) [place] [address] POCT-GLUCOSE [id number] 21:27:00 Test Item Value Reference Range Interpretation Comments POC-GLUCOSE METER 146 mg/dL 70-110 H TESTED AT [facility] [address] [facility] (test code [facility] = 1538) [place] [address] POCT-GLUCOSE [id number] 17:17:00 Test Item Value Reference Range Interpretation Comments POC-GLUCOSE METER 134 mg/dL 70-110 H TESTED AT [facility] [address] [facility] (test code [facility] = 1538) [place] [address] POCT-GLUCOSE [id number] 13:49:00 Test Item Value Reference Range Interpretation Comments POC-GLUCOSE METER 177 mg/dL 70-110 H TESTED AT [facility] [address] [facility] (test code [facility] = 1538) [place] [address] POCT-GLUCOSE [id number] 05:34:00 Test Item Value Reference Range Interpretation Comments POC-GLUCOSE METER 118 mg/dL 70-110 H TESTED AT [facility] [address] [facility] (test code [employer] [facility] = 1538) [place] [address] POCT-GLUCOSE [id number] 21:14:00 Test Item Value Reference Range Interpretation Comments POC-GLUCOSE METER 149 mg/dL 70-110 H TESTED AT [facility] [address] (BEAKER) (test code [employer] [facility] = 1538) [place] [address] POCT-GLUCOSE [id number] 17:44:00 Test Item Value Reference Range Interpretation Comments POC-GLUCOSE METER 132 mg/dL 70-110 H TESTED AT [facility] [address] (BEAKER) (test code [facility] = 1538) [place] [address] POCT-GLUCOSE [id number] 12:21:00 Test Item Value Reference Range Interpretation Comments POC-GLUCOSE METER 168 mg/dL 70-[address] [place] [address] [address] (BEAKER) (test code [facility] = 1538) [place] [address] [id number] 05:19:00 Test Item Value Reference Range Interpretation Comments PARTIAL THROMBOPLASTIN TIME 84.3 seconds 23.2-36.1 H (BEAKER) (test code = 760) POCT-GLUCOSE [id number] 20:50:00 Test Item Value Reference Range Interpretation Comments POC-GLUCOSE METER 147 mg/dL 70-[address] [place] [address] [address] (BEAKER) (test code [facility] = 1538) [place] [address] POCT-GLUCOSE [id number] 17:19:00 Test Item Value Reference Range Interpretation Comments POC-GLUCOSE METER 238 mg/dL 70-[place] [address] [address] (BEAKER) (test code [facility] = 1538) [place] [address] [id number] 15:09:00 Test Item Value Reference Range Interpretation Comments PARTIAL THROMBOPLASTIN TIME 74.8 seconds 23.2-36.1 H (BEAKER) (test code = 760) POCT-GLUCOSE [id number] 11:57:00 Test Item Value Reference Range Interpretation Comments POC-GLUCOSE METER 146 mg/dL 70-[address] [place] [address] [address] (BEAKER) (test code [facility] = 1538) [place] [address] POCT-GLUCOSE [id number] 05:37:00 Test Item Value Reference Range Interpretation Comments POC-GLUCOSE METER 139 mg/dL 70-110 H TESTED AT [facility] [address] (BEAKER) (test code [facility] = 1538) [place] [address] BASIC METABOLIC [id number] 04:04:00 Test Item Value Reference Range Interpretation [...] GFR I S NOT APPLICABLE FOR DIALYSIS NA JEAN. [id number] 04:02:00 Test Item Value Reference Range Interpretation Comments PARTIAL THROMBOPLASTIN TIME 76.5 seconds 23.2-36.1 H (BEAKER) (test code = 760) CBC W/PLT COUNT & AUTO [id number] 03:41:00 Test Item Value Reference Range Interpretation [...] PERCENT (BEAKER) (test code = 2801) POCT-GLUCOSE [id number] 22:12:00 Test Item Value Reference Range Interpretation Comments POC-GLUCOSE METER 247 mg/dL 70-110 H TESTED AT [facility] [address] (BEAKER) (test code [facility] = 1538) [place] [address] [id number] 21:11:00 Test Item Value Reference Range Interpretation Comments PARTIAL THROMBOPLASTIN TIME 62.4 seconds 23.2-36.1 H (BEAKER) (test code = 760) [id number] 12:45:00 Test Item Value Reference Range Interpretation Comments PARTIAL THROMBOPLASTIN TIME 101.2 seconds 23.2-36.1 H (BEAKER) (test code = 760) POCT-GLUCOSE [id number] 11:48:00 Test Item Value Reference Range Interpretation Comments POC-GLUCOSE METER 259 mg/dL 70-110 H TESTED AT [facility] [address] (BEAKER) (test code [facility] = 1538) [place] [address] POCT-GLUCOSE [id number] 05:38:00 Test Item Value Reference Range Interpretation Comments POC-GLUCOSE METER 121 mg/dL 70-110 H TESTED AT [facility] [address] (BEAKER) (test code [facility] 1538) [place] [address] [id number] 05:33:00 Test Item Value Reference Range Interpretation Comments PARTIAL THROMBOPLASTIN TIME 108.5 seconds 23.2-36.1 H (BEAKER) (test code = 760) POCT-GLUCOSE [id number] 20:59:00 Test Item Value Reference Range Interpretation Comments POC-GLUCOSE METER 197 mg/dL 70-110 H TESTED AT [facility] [address] (BEAKER) (test code [facility] = 1538) [place] [address] POCT-GLUCOSE [id number] 16:47:00 Test Item Value Reference Range Interpretation Comments POC-GLUCOSE METER 150 mg/dL 70-110 H TESTED AT [facility] [address] (BEAKER) (test code [facility] 1538) [place] [address] [id number] 15:21:00 Test Item Value Reference Range Interpretation Comments PARTIAL THROMBOPLASTIN TIME 79.9 seconds 23.2-36.1 H (BEAKER) (test code = 760) POCT-GLUCOSE [id number] 12:52:00 Test Item Value Reference Range Interpretation Comments POC-GLUCOSE METER 207 mg/dL 70-110 H TESTED AT [facility] [address] (BEAKER) (test code [facility] = 1538) [place] [address] [id number] 09:17:00 Test Item Value Reference Range Interpretation Comments PARTIAL THROMBOPLASTIN TIME 95.7 seconds 23.2-36.1 H (BEAKER) (test code = 760) BASIC METABOLIC [id number] 02:36:00 Test Item Value Reference Range Interpretation [...] I S NOT APPLICABLE FOR DIALYSIS PATIEN TED. [id number] 02:26:00 Test Item Value Reference Range Interpretation Comments PARTIAL THROMBOPLASTIN TIME 104.6 seconds 23.2-36.1 H (BEAKER) (test code = 760) CBC W/PLT COUNT & AUTO [id number] 02:18:00 Test Item Value Reference Range Interpretation [...] PERCENT (BEAKER) (test code = 2801) POCT-GLUCOSE [id number] 22:17:00 Test Item Value Reference Range Interpretation Comments POC-GLUCOSE METER 211 mg/dL 70-110 H TESTED AT [facility] [address] (BEAKER) (test code [facility] = 1538) [place] [address] [id number] 20:16:00 Test Item Value Reference Range Interpretation Comments PARTIAL THROMBOPLASTIN TIME 107.2 seconds 23.2-36.1 H (BEAKER) (test code = 760) POCT-GLUCOSE [id number] 16:24:00 Test Item Value Reference Range Interpretation Comments POC-GLUCOSE METER 167 mg/dL 70-110 H TESTED AT [facility] [address] (BEAKER) (test code [facility] = 1538) [place] [address] [id number] 14:17:00 Test Item Value Reference Range Interpretation Comments PARTIAL THROMBOPLASTIN TIME 96.3 seconds 23.2-36.1 H (BEAKER) (test code = 760) POCT-GLUCOSE [id number] 11:40:00 Test Item Value Reference Range Interpretation Comments POC-GLUCOSE METER 190 mg/dL 70-110 H TESTED AT [facility] [address] (BEAKER) (test code [facility] = 1538) [place] [address] [id number] 07:52:00 Test Item Value Reference Range Interpretation Comments PARTIAL THROMBOPLASTIN TIME 58.0 seconds 23.2-36.1 H (BEAKER) (test code = 760) BASIC METABOLIC [id number] 06:09:00 Test Item Value Reference Range Interpretation [...] S NOT APPLICABLE FOR DIALYSIS PATIEN TS. [id number] 05:53:00 Test Item Value Reference Range Interpretation Comments PARTIAL THROMBOPLASTIN TIME 138.1 seconds 23.2-36.1 H (BEAKER) (test code = 760) CBC W/PLT COUNT & AUTO [id number] 05:45:00 Test Item Value Reference Range Interpretation [...] GRANULOCYTES-RELATIVE PERCENT (BEAKER) (test code = 2801) [id number] 23:56:00 Test Item Value Reference Range Interpretation Comments PARTIAL THROMBOPLASTIN TIME 96.6 seconds 23.2-36.1 H (BEAKER) (test code = 760) POCT-GLUCOSE [id number] 21:22:00 Test Item Value Reference Range Interpretation Comments POC-GLUCOSE METER 160 mg/dL 70-110 H TESTED AT [facility] [address] (BEAKER) (test code [facility] = 1538) [place] [address] POCT-GLUCOSE [id number] 17:27:00 Test Item Value Reference Range Interpretation Comments POC-GLUCOSE METER 151 mg/dL 70-110 H TESTED AT [facility] [address] (BEAKER) (test code [facility] = 1538) [place] [address] [id number] 16:40:00 Test Item Value Reference Range Interpretation Comments PARTIAL THROMBOPLASTIN TIME 40.0 seconds 23.2-36.1 H (BEAKER) (test code = 760) POCT-GLUCOSE [id number] 13:43:00 Test Item Value Reference Range Interpretation Comments POC-GLUCOSE METER 164 mg/dL 70-110 H TESTED AT [facility] [address] (BEAKER) (test code [facility] = 1538) [place] [address] [id number] 13:34:00 Test Item Value Reference Range Interpretation Comments PARTIAL THROMBOPLASTIN TIME 141.6 seconds 23.2-36.1 H (BEAKER) (test code = 760) OCCULT BLOOD, [id number] 13:20:00 Test Item Value Reference Range Interpretation Comments FECAL OCCULT BLOOD (BEAKER) (test Negative Negative code = 618) BASIC METABOLIC [id number] 12:13:00 Test Item Value Reference Range Interpretation [...] APPLICABLE FOR DIALYSIS PATIEN TS. HEPATIC FUNCTION [id number] 12:13:00 Test Item Value Reference Range Interpretation [...] 6-50 347) CBC W/PLT COUNT & AUTO [id number] 11:47:00 Test Item Value Reference Range Interpretation [...] GRANULOCYTES-RELATIVE PERCENT (BEAKER) (test code = 2801) [id number] 06:33:00 Test Item Value Reference Range Interpretation Comments PARTIAL THROMBOPLASTIN TIME 102.3 seconds 23.2-36.1 H (BEAKER) (test code = 760) POCT-GLUCOSE [id number] 05:47:00 Test Item Value Reference Range Interpretation Comments POC-GLUCOSE METER 151 mg/dL 70-110 H TESTED AT [facility] [address] (BEAKER) (test code [facility] = 1538) [place] [address] BASIC METABOLIC [id number] 01:16:00 Test Item Value Reference Range Interpretation [...] S NOT APPLICABLE FOR DIALYSIS PATIEN TS. [id number] 01:06:00 Test Item Value Reference Range Interpretation Comments PARTIAL THROMBOPLASTIN TIME 46.8 seconds 23.2-36.1 H (BEAKER) (test code = 760) [id number] 23:18:00 Test Item Value Reference Range Interpretation Comments PARTIAL THROMBOPLASTIN TIME 177.9 seconds 23.2-36.1 HH (BEAKER) (test code = 760) POCT-GLUCOSE [id number] 22:05:00 Test Item Value Reference Range Interpretation Comments POC-GLUCOSE METER 204 mg/dL 70-110 H TESTED AT [facility] [address] (BEAKER) (test code [facility] = 1538) [place] [address] [id number] 16:35:00 Test Item Value Reference Range Interpretation Comments PARTIAL THROMBOPLASTIN TIME 47.9 seconds 23.2-36.1 H (BEAKER) (test code = 760) POCT-GLUCOSE [id number] 16:33:00 Test Item Value Reference Range Interpretation Comments POC-GLUCOSE METER 167 mg/dL 70-110 H TESTED AT [facility] [address] (BEAKER) (test code [facility] = 1538) [place] [address] [id number] 15:11:00 Test Item Value Reference Range Interpretation Comments PARTIAL THROMBOPLASTIN TIME 198.7 seconds 23.2-36.1 HH (BEAKER) (test code = 760) POCT-GLUCOSE [id number] 12:08:00 Test Item Value Reference Range Interpretation Comments POC-GLUCOSE METER 166 mg/dL 70-110 H TESTED AT [facility] [address] (BEAKER) (test code [facility] = 1538) [place] [address] [id number] 07:27:00 Test Item Value Reference Range Interpretation Comments PARTIAL THROMBOPLASTIN TIME 65.6 seconds 23.2-36.1 H (BEAKER) (test code = 760) [id number] 05:59:00 Test Item Value Reference Range Interpretation Comments PARTIAL THROMBOPLASTIN TIME 156.1 seconds 23.2-36.1 HH (BEAKER) (test code = 760) BASIC METABOLIC [id number] 05:54:00 Test Item Value Reference Range Interpretation [...] NOT APPLICABLE FOR DIALYSIS PATIEN TS. POCT-GLUCOSE [id number] 05:45:00 Test Item Value Reference Range Interpretation Comments POC-GLUCOSE METER 145 mg/dL 70-110 H TESTED AT [facility] [address] (BEAKER) (test code [facility] = 1538) [place] [address] CBC W/PLT COUNT & AUTO [id number] 05:36:00 Test Item Value Reference Range Interpretation [...] PERCENT (BEAKER) (test code = 2801) POCT-GLUCOSE [id number] 20:29:00 Test Item Value Reference Range Interpretation Comments POC-GLUCOSE METER 128 mg/dL 70-110 H TESTED AT [facility] [address] (BEAKER) (test code [facility] = 1538) [place] [address] POCT-GLUCOSE [id number] 16:58:00 Test Item Value Reference Range Interpretation Comments POC-GLUCOSE METER 160 mg/dL 70-110 H TESTED AT [facility] [address] (BEAKER) (test code [facility] = 1538) [place] [address] POCT-GLUCOSE [id number] 11:58:00 Test Item Value Reference Range Interpretation Comments POC-GLUCOSE METER 163 mg/dL 70-110 H [facility] AT [facility] [address] [facility] (test code [facility] = 1538) [place] [address] [id number] 05:25:00 Test Item Value Reference Range Interpretation Comments PARTIAL THROMBOPLASTIN TIME 79.6 seconds 23.2-36.1 H (BEAKER) (test code = 760) CBC W/PLT COUNT & AUTO [id number] 05:18:00 Test Item Value Reference Range Interpretation [...] GRANULOCYTES-RELATIVE PERCENT (BEAKER) (test code = 2801) [id number] 21:47:00 Test Item Value Reference Range Interpretation Comments PARTIAL THROMBOPLASTIN TIME 85.4 seconds 23.2-36.1 H (BEAKER) (test code = 760) POCT-GLUCOSE [id number] 16:24:00 Test Item Value Reference Range Interpretation Comments POC-GLUCOSE METER 189 mg/dL 70-110 H TESTED AT [facility] [address] (BEAKER) (test code [facility] = 1538) [place] [address] [id number] 13:02:00 Test Item Value Reference Range Interpretation Comments PARTIAL THROMBOPLASTIN TIME 51.8 seconds 23.2-36.1 H (BEAKER) (test code = 760) POCT-GLUCOSE [id number] 11:41:00 Test Item Value Reference Range Interpretation Comments POC-GLUCOSE METER 169 mg/dL 70-110 H TESTED AT [facility] [address] ([facility]) (test code [facility] = 1538) [place] [address] VITAMIN D, [id number] 08:15:00 Test Item Value Reference Range Interpretation Comments VITAMIN D 25-OH (BEAKER) (test code 5.4 ng/mL 6.6-49.9 L = 2764) Effective 12/25/2016: Reference Range ChangeNew: 6.6-49.9 ng/mL Previous: 13.0-47.8 ng/mLRecommended Vitamin D Target Range: 30.0-40.0 ng/mLPOCT-GLUCOSE [id number] 06:20:00 Test Item Value Reference Range Interpretation Comments POC-GLUCOSE METER 158 mg/dL 70-110 H TESTED AT [facility] [address] ([facility]) (test code [facility] = 1538) [place] [address] HEPATIC FUNCTION [id number] 05:45:00 Test Item Value Reference Range Interpretation Comments TOTAL PROTEIN (BEAKER) 6.5 gm/dL 6.0-8.5 Speci men markedly (test code = 770) hemolyzed ALBUMIN (BEAKER) (test 1.8 g/dL 3.5-5.0 L Speci men markedly code = 1145) hemolyzed BILIRUBIN TOTAL 1.2 mg/dL 0.1-1.3 Specimen michael kedly (BEAKER) (test code = hemoly zed 377) BILIRUBIN DIRECT 0.1 mg/dL 0.0-0.5 Specimen abeba browning (BEAKER) (test code = hemoly zed 706) ALKALINE PHOSPHATASE 142 U/L 30-115 H (BEAKER) (test code = 346) AST (SGOT) (BEAKER) 49 U/L 5-40 H Specimen markedly (test code = 353) hemolyzed ALT (SGPT) (BEAKER) 28 U/L 6-50 Specimen markedly (test code = 347) hemolyzed [id number] 05:30:00 Test Item Value Reference Range Interpretation Comments PARTIAL THROMBOPLASTIN TIME 63.3 seconds 23.2-36.1 H (BEAKER) (test code = 760) Prior to initiating heparinCBC W/PLT COUNT & AUTO [id number] 05:23:00 Test Item Value Reference Range Interpretation [...] GRANULOCYTES-RELATIVE PERCENT (BEAKER) (test code = 2801) [id number] 00:59:00 Test Item Value Reference Range Interpretation Comments PARTIAL THROMBOPLASTIN TIME 62.3 seconds 23.2-36.1 H (BEAKER) (test code = 760) POCT-GLUCOSE [id number] 21:34:00 Test Item Value Reference Range Interpretation Comments POC-GLUCOSE METER 196 mg/dL 70-110 H TESTED AT [facility] [address] ([facility]) (test code [facility] = 1538) [place] [address] [id number] 18:14:00 Test Item Value Reference Range Interpretation Comments PARTIAL THROMBOPLASTIN TIME 82.3 seconds 23.2-36.1 H (BEAKER) (test code = 760) POCT-GLUCOSE [id number] 17:01:00 Test Item Value Reference Range Interpretation Comments POC-GLUCOSE METER 192 mg/dL 70-110 H TESTED AT [facility] [address] ([facility]) (test code [facility] = 1538) [place] [address] POCT-GLUCOSE [id number] 13:29:00 Test Item Value Reference Range Interpretation Comments POC-GLUCOSE METER 207 mg/dL 70-110 H TESTED AT [facility] [address] ([facility]) (test code [facility] = 1538) [place] [address] [id number] 12:48:00 Test Item Value Reference Range Interpretation Comments PARTIAL THROMBOPLASTIN TIME 63.3 seconds 23.2-36.1 H (BEAKER) (test code = 760) CBC W/PLT COUNT & AUTO [id number] 12:25:00 Test Item Value Reference Range Interpretation [...] PERCENT (BEAKER) (test code = 2801) POCT-GLUCOSE [id number] 06:40:00 Test Item Value Reference Range Interpretation Comments POC-GLUCOSE METER 166 mg/dL 70-110 H TESTED AT [facility] [address] ([facility]) (test code [facility] = 1538) [place] [address] BUN AND [id number] 06:07:00 Test Item Value Reference Range Interpretation Comments BLOOD UREA NITROGEN 15 mg/dL 10-26 ([facility]) (test code = 354) CREATININE ([facility]) 0.62 mg/dL 0.50-1.20 (test code = 358) EGFR ([facility]) (test 120 mL/min/1.73 ESTIM ATED GFR IS code = 1092) sq m NOT ACCURATE CREATININE CLEARANCE IN PREDICTING GLOMERULAR FILTRATION RATE . ESTIMATED GFR I S NOT APPLICABLE FOR DIALYSIS PATIEN TS. Please draw first BUN/ S Creat with the 12 noon Amikacin Blood level draw. Thank [id number] 05:48:00 Test Item Value Reference Range Interpretation Comments PARTIAL THROMBOPLASTIN TIME 60.0 seconds 23.2-36.1 H ([facility]) (test code = 760) ANTI-NUCLEAR ANTIBODY (TAMMI)2017-11-20 00:24:00 Test Item Value Reference Range Interpretation Comments ANTI-NUCLEAR ANTIBODY (TAMMI) ([facility]) Negative Negative (test code = 418) Test performed by IFA method.Test performed by IFA method.[id number] 23:01:00 Test Item Value Reference Range Interpretation Comments PARTIAL THROMBOPLASTIN TIME 58.3 seconds 23.2-36.1 H ([facility]) (test code = 760) POCT-GLUCOSE [id number] 21:22:00 Test Item Value Reference Range Interpretation Comments POC-GLUCOSE METER 171 mg/dL 70-110 H TESTED AT [facility] [address] ([facility]) (test code [facility] = 1538) [place] [address] POCT-GLUCOSE [id number] 16:54:00 Test Item Value Reference Range Interpretation Comments POC-GLUCOSE METER 135 mg/dL 70-110 H TESTED AT [facility] [address] ([facility]) (test code [facility] = 1538) [place] [address] PERIPHERAL BLOOD SMEAR - PATHOLOGIST [id number] 15:35:00 Test Item Value Reference Range Interpretation Comments PERIPHERAL SMR REVIEW Neutrophilic ([facility]) (test code = leukocytosis with 2640) increased band forms and unremarkable WBC morphology. Normocytic anemia with unremarkable RBCs. Platelets unremarkable. No dysmorphic or blast forms seen. [id number] Nazario Becker M.D. (BEAKER) (test code = (electronic signature) 2952) (MANUAL DIFFERENTIAL)2017-11-19 15:31:00 Test Item Value Reference [...] (BEAKER) (test code = 1+ few 480) [id number] 15:21:00 Test Item Value Reference Range Interpretation Comments PARTIAL THROMBOPLASTIN TIME 39.3 seconds 23.2-36.1 H (BEAKER) (test code = 760) POCT-GLUCOSE [id number] 13:08:00 Test Item Value Reference Range Interpretation Comments POC-GLUCOSE METER 140 mg/dL 70-110 H TESTED AT [facility] [address] (BEAKER) (test code [facility] = 1538) [place] [address] CBC W/PLT COUNT & AUTO [id number] 09:33:00 Test Item Value Reference Range Interpretation [...] (BEAKER) (test code = 413) BUN AND [id number] 08:45:00 Test Item Value Reference Range Interpretation [...] 12 noon Amikacin Blood level draw. Thank [id number] 08:27:00 Test Item Value Reference Range Interpretation Comments PARTIAL THROMBOPLASTIN TIME 29.5 seconds 23.2-36.1 ([facility]) (test code = 760) POCT-GLUCOSE [id number] 04:48:00 Test Item Value Reference Range Interpretation Comments POC-GLUCOSE METER 142 mg/dL 70-110 H TESTED AT [facility] [address] [facility] (test code [facility] = 1538) [place] [address] RHEUMATOID FACTOR AB, REFLEX TO [id number] 01:10:00 Test Item Value Reference Range Interpretation Comments RHEUMATOID FACTOR (BEROGELIO) (test Negative code = 573) [id number] 00:56:00 Test Item Value Reference Range Interpretation Comments PROTIME ([facility]) (test code = 17.9 seconds 11.8-14.4 H 759) INR ([facility]) (test code = 370) 1.4 1.2-1.5 PARTIAL THROMBOPLASTIN TIME 48.9 seconds 23.2-36.1 H ([facility]) (test code = 760) RECOMMENDED COUMADIN/WARFARIN INR THERAPY RANGESSTANDARD DOSE: 2.0 - 3.0 Includes: PROPHYLAXIS forvenous thrombosis, systemic embolization; TREATMENT for venous thrombosis and/or pulmonary embolus.HIGH RISK: Target INR is 2.5-3.5 for patients with mechanical heart valves.VENOUS DOPPLER LEGS, [id number] 22:05:00Reason for exam:->leukocytosis persistentFINAL REPORT CLINICAL HISTORY: [...] MDReport Verified Date/Time: 11/18/2017 22:05:25 Reading Location: [address] Reading Room POCT-GLUCOSE [id number] 20:56:00 Test Item Value Reference Range Interpretation Comments POC-GLUCOSE METER 111 mg/dL 70-110 H TESTED AT [facility] [address] ([facility]) (test code [facility] = 1538) [place] [address] AMIKACIN LEVEL, [id number] 17:26:00 Test Item Value Reference Range Interpretation Comments [facility]ACIN, TROUGH [facility] (test 10.3 ug/mL 4.0-8.0 HH code = 1830) Therapeutic Range (ug/mL)Peak: 25.0-35.0Trough: 4.0-8.0 Toxic: >35.0VENOUS DOPPLER ARMS, [id number] 16:59:00Reason for exam:->swelling right handAddendum BeginsREPORT STATUS:A Addendum:A left-sided PICC is visualized. End of addendum. Signed: Dangelo Proctoreport Verified Date/Time: 11/18/2017 16:59:45 Reading Location: [facility] Radiology Reading RoomAddendum EndsFINAL REPORT [...] MDReport Verified Date/Time: 11/18/2017 15:36:41 [facility] POCT-GLUCOSE [id number] 16:58:00 Test Item Value Reference Range Interpretation Comments POC-GLUCOSE METER 100 mg/dL 70-110 TESTED AT [facility] [address] ([facility]) (test code [facility] = 1538) [place] [address] POCT-GLUCOSE [id number] 11:30:00 Test Item Value Reference Range Interpretation Comments POC-GLUCOSE METER 119 mg/dL 70-110 H TESTED AT [facility] [address] ([facility]) (test code [facility] = 1538) [place] [address] HEPATITIS B SURFACE [id number] 11:18:00 Test Item Value Reference Range Interpretation Comments HEPATITIS B SURFACE ANTIBODY 436.5 mIU/mL <8.0 H ([facility]) (test code = 647) HEPATITIS C [id number] 11:18:00 Test Item Value Reference Range Interpretation Comments HEPATITIS C ANTIBODY ([facility]) Nonreactive Nonreactive (test code = 367) AMIKACIN LEVEL, [id number] 11:03:00 Test Item Value Reference Range Interpretation Comments AMIKACIN, PEAK ([facility]) (test code 26.0 ug/mL 25.0-35.0 = 1831) Therapeutic Range (ug/mL)Peak: 25.0-35.0Trough: 4.0-8.0 Toxic: >35.0 SURGICALLY OBTAINED CULTURE + GRAM [id number] 08:25:00 Test Item Value Reference Interpretation Comments [...] No organisms seen (BEAKER) (test code = 205952) ANAEROBIC [id number] 07:53:00 Test Item Value Reference Range Interpretation Comments CULTURE (BEAKER) (test No anaerobes isolated code = 1095) GRAM STAIN RESULT 1+ WBCs (BEAKER) (test code = 1123) GRAM STAIN RESULT No organisms seen (BEAKER) (test code = 05848) POCT-GLUCOSE [id number] 06:37:00 Test Item Value Reference Range Interpretation Comments POC-GLUCOSE METER 135 mg/dL 70-110 H TESTED AT [facility] [address] ([facility]) (test code [facility] = 1538) [place] [address] HIV-1 ANTIGEN WITH HIV-1/2 [id number] 05:51:00 Test Item Value Reference Range Interpretation Comments HIV-1 ANTIGEN WITH HIV 1\\T\\2 Nonreactive Nonreactive ANTIBODY (2) (BEAKER) (test code = 2586) HEPATITIS B SURFACE [id number] 05:46:00 Test Item Value Reference Range Interpretation Comments HEPATITIS B SURFACE ANTIGEN (2) Nonreactive Nonreactive (BEAKER) (test code = 2585) CBC W/PLT COUNT & AUTO [id number] 05:11:00 Test Item Value Reference Range Interpretation [...] code = 2801) Smear reviewed. Results confirmed.POCT-GLUCOSE [id number] 23:01:00 Test Item Value Reference Range Interpretation Comments POC-GLUCOSE METER 111 mg/dL 70-110 H TESTED AT [facility] [address] ([facility]) (test code [facility] = 1538) [place] [address] POCT-GLUCOSE [id number] 17:15:00 Test Item Value Reference Range Interpretation Comments POC-GLUCOSE METER 100 mg/dL 70-110 TESTED AT [facility] [address] ([facility]) (test code [facility] = 1538) [place] [address] C-REACTIVE [id number] 14:34:00 Test Item Value Reference Range Interpretation Comments C-REACTIVE PROTEIN (BEAKER) (test 35.06 mg/dL 0.00-0.50 H code = 676) POCT-GLUCOSE [id number] 12:50:00 Test Item Value Reference Range Interpretation Comments POC-GLUCOSE METER 221 mg/dL 70-110 H TESTED AT [facility] [address] ([facility]) (test code [facility] = 1538) [place] [address] CBC W/PLT COUNT & AUTO [id number] 10:56:00 Test Item Value Reference Range Interpretation [...] PERCENT (BEAKER) (test code = 2801) POCT-GLUCOSE [id number] 10:03:00 Test Item Value Reference Range Interpretation Comments POC-GLUCOSE METER 104 mg/dL 70-110 TESTED AT [facility] [address] (BEAKER) (test code [facility] = 1538) [place] [address] BASIC METABOLIC [id number] 04:51:00 Test Item Value Reference Range Interpretation [...] NOT APPLICABLE FOR DIALYSIS PATIEN TS. POCT-GLUCOSE [id number] 20:41:00 Test Item Value Reference Range Interpretation Comments POC-GLUCOSE METER 127 mg/dL 70-110 H TESTED AT [facility] [address] (BEAKER) (test code [facility] = 1538) [place] [address] POCT-GLUCOSE [id number] 17:03:00 Test Item Value Reference Range Interpretation Comments POC-GLUCOSE METER 145 mg/dL 70-110 H TESTED AT [facility] [address] (BEAKER) (test code [facility] = 1538) [place] [address] [id number] 12:39:00 Test Item Value Reference Range Interpretation Comments PROCALCITONIN (BEAKER) (test code 1.27 ng/mL <0.05 H = 3036) SEPSIS RISK (ng/mL)Low: 0.05-0.50Intermediate: 0.51-2.00High: >=2.01POCT-GLUCOSE [id number] 11:58:00 Test Item Value Reference Range Interpretation Comments POC-GLUCOSE METER 120 mg/dL 70-110 H TESTED AT [facility] [address] ([facility]) (test code [facility] = 1538) [place] [address] CBC W/PLT COUNT & AUTO [id number] 09:50:00 Test Item Value Reference Range Interpretation [...] PERCENT (BEAKER) (test code = 2801) POCT-GLUCOSE [id number] 06:32:00 Test Item Value Reference Range Interpretation Comments POC-GLUCOSE METER 124 mg/dL 70-110 H TESTED AT [facility] [address] (BEAKER) (test code [facility] = 1538) [place] [address] BASIC METABOLIC [id number] 06:27:00 Test Item Value Reference Range Interpretation [...] APPLICABLE FOR DIALYSIS PATIEN TS. BUN AND [id number] 06:26:00 Test Item Value Reference Range Interpretation [...] APPLICABLE FOR DIALYSIS PATIEN TS. HEMOGLOBIN AND [id number] 06:03:00 Test Item Value Reference Range Interpretation Comments HEMOGLOBIN (BEAKER) (test code = 8.6 GM/DL 12.0-15.5 L 410) HEMATOCRIT (BEAKER) (test code = 25.9 % 36.0-46.0 L 411) CT, CHEST, WITHOUT [id number] 22:51:00FINAL REPORT CLINICAL HISTORY: Leukocytosis FINDINGS: Multiple [...] MDReport Verified Date/Time: 11/15/2017 22:51:35 Reading Location: [address] [place], [id number] 22:51:00FINAL REPORT CLINICAL HISTORY: Leukocytosis FINDINGS: Multiple [...] MDReport Verified Date/Time: 11/15/2017 22:51:35 Reading Location: [address] Reading Room POCT-GLUCOSE [id number] 21:14:00 Test Item Value Reference Range Interpretation Comments POC-GLUCOSE METER 128 mg/dL 70-110 H TESTED AT [address] ([facility]) (test code [facility] = 1538) [place] [address] POCT-GLUCOSE [id number] 17:10:00 Test Item Value Reference Range Interpretation Comments POC-GLUCOSE METER 109 mg/dL 70-110 TESTED AT [address] ([facility]) (test code [facility] = 1538) [place] [address] POCT-GLUCOSE [id number] 12:15:00 Test Item Value Reference Range Interpretation Comments POC-GLUCOSE METER 116 mg/dL 70-110 H TEST[facility] AT [facility] [address] [facility] (test code [facility] = 1538) [place] [address] SPIN/CONCENTRATION [id number] 10:39:00 Test Item Value Reference Range Interpretation Comments CONCENTRATION CHARGED ([facility]) (test Done code = 2657) CBC W/PLT COUNT & AUTO [id number] 09:22:00 Test Item Value Reference Range Interpretation [...] (test code = 2801) TYPE AND SCREEN, [id number] 08:18:00 Test Item Value Reference Range Interpretation Comments ABO/RH AUTOMATED (BEAKER) (test B POSITIVE code = 2260) AB SCREEN (BEAKER) (test code = NEGATIVE 923) ANAEROBIC [id number] 07:55:00 Test Item Value Reference Range Interpretation Comments CULTURE (BEAKER) (test No anaerobes isolated code = 1095) BASIC METABOLIC [id number] 05:40:00 Test Item Value Reference Range Interpretation [...] APPLICABLE FOR DIALYSIS PATIEN TS. BUN AND [id number] 05:37:00 Test Item Value Reference Range Interpretation [...] APPLICABLE FOR DIALYSIS PATIEN TS. VANCOMYCIN LEVEL, [id number] 05:36:00 Test Item Value Reference Range Interpretation Comments VANCOMYCIN TROUGH (BEAKER) (test 17.5 ug/mL 10.0-20.0 code = 522) HEMOGLOBIN AND [id number] 05:23:00 Test Item Value Reference Range Interpretation Comments HEMOGLOBIN (BEAKER) (test code = 6.4 GM/DL 12.0-15.5 L 410) HEMATOCRIT (BEAKER) (test code = 19.3 % 36.0-46.0 LL 411) POCT-GLUCOSE [id number] 16:12:00 Test Item Value Reference Range Interpretation Comments POC-GLUCOSE METER 129 mg/dL 70-110 H TESTED AT [facility] [address] (BEAKER) (test code [facility] = 1538) [place] [address] POCT-GLUCOSE [id number] 12:07:00 Test Item Value Reference Range Interpretation Comments POC-GLUCOSE METER 114 mg/dL 70-110 H TESTED AT [facility] [address] (BEAKER) (test code [facility] = 1538) [place] [address] POCT-GLUCOSE [id number] 10:00:00 Test Item Value Reference Range Interpretation Comments POC-GLUCOSE METER 97 mg/dL 70-110 TESTED AT [facility] [address] (BEAKER) (test code = [facility] 1538) [place] [address] SURGICALLY OBTAINED CULTURE + GRAM [id number] 09:36:00 Test Item Value Reference Range Interpretation Comments CULTURE (BEAKER) (test code No growth = 1095) GRAM STAIN RESULT (BEAKER) <1+ WBCs (test code = 1123) GRAM STAIN RESULT (BEAKER) No organisms seen (test code = 85046) POCT-GLUCOSE [id number] 06:06:00 Test Item Value Reference Range Interpretation Comments POC-GLUCOSE METER 105 mg/dL 70-110 TESTED AT [facility] [address] (BEAKER) (test code [facility] = 1538) [place] [address] BASIC METABOLIC [id number] 05:55:00 Test Item Value Reference Range Interpretation [...] PATIEN TS. CBC W/PLT COUNT & AUTO [id number] 05:35:00 Test Item Value Reference Range Interpretation [...] PERCENT (BEAKER) (test code = 2801) POCT-GLUCOSE [id number] 21:11:00 Test Item Value Reference Range Interpretation Comments POC-GLUCOSE METER 94 mg/dL 70-110 TESTED AT [address] [facility] (test code = [facility] 1538) [place] [address] POCT-GLUCOSE [id number] 16:51:00 Test Item Value Reference Range Interpretation Comments POC-GLUCOSE METER 121 mg/dL 70-110 H TESTED AT [address] ([facility]) (test code [facility] = 1538) [place] [address] POCT-GLUCOSE [id number] 15:10:00 Test Item Value Reference Range Interpretation Comments POC-GLUCOSE METER 97 mg/dL 70-110 TESTED AT [address] ([facility]) (test code = [facility] 1538) [place] [address] [id number] 10:17:00 Test Item Value Reference Range Interpretation Comments PROCALCITONIN (BEAKER) (test code 1.41 ng/mL <0.05 H = 3036) SEPSIS RISK (ng/mL)Low: 0.05-0.50Intermediate: 0.51-2.00High: >=2.01HEPATIC FUNCTION [id number] 09:52:00 Test Item Value Reference Range Interpretation [...] code = 12 U/L 6-50 347) POCT-GLUCOSE [id number] 05:57:00 Test Item Value Reference Range Interpretation Comments POC-GLUCOSE METER 87 mg/dL 70-110 TESTED AT [facility] [address] (BEAKER) (test code = [facility] 1538) [place] [address] BASIC METABOLIC [id number] 05:34:00 Test Item Value Reference Range Interpretation [...] PATIEN TS. CBC W/PLT COUNT & AUTO [id number] 05:33:00 Test Item Value Reference Range Interpretation [...] (BEAKER) (test code = 2801) BUN AND [id number] 05:32:00 Test Item Value Reference Range Interpretation Comments BLOOD UREA NITROGEN 21 mg/dL 10-26 (BEAKER) (test code = 354) CREATININE (BEAKER) 0.79 mg/dL 0.50-1.20 (test code = 358) EGFR (BEAKER) (test 91 mL/min/1.73 ESTIMA YUMIKO GFR IS code = 1092) sq m NOT ACCURATE CREATININE CLEARANCE IN PREDICTING GLOMERULAR FILTRATION RATE . ESTIMATED GFR I S NOT APPLICABLE FOR DIALYSIS PATIEN TS. BLOOD [id number] 04:00:00 Test Item Value Reference Range Interpretation Comments CULTURE (BEAKER) (test No growth in 5 days code = 1095) BLOOD [id number] 01:00:00 Test Item Value Reference Range Interpretation Comments CULTURE (BEAKER) (test No growth in 5 days code = 1095) POCT-GLUCOSE [id number] 21:25:00 Test Item Value Reference Range Interpretation Comments POC-GLUCOSE METER 135 mg/dL 70-110 H TESTED AT [facility] [address] (BEAKER) (test code [facility] = 1538) [place] [address] ANG, NON-TUNNELED CATH/PICC >5 Y.O.2017-11-12 17:59:00Reason for [...] PICC insertion as described. Signed: Mandi Mancilla Verified Date/Time: 11/12/2017 17:59:19 Reading Location: [facility] Radiology Reading Room POCT-GLUCOSE [id number] 16:37:00 Test Item Value Reference Range Interpretation Comments POC-GLUCOSE METER 98 mg/dL 70-110 TESTED AT [facility] [address] (BEAKER) (test code = [facility] 9548) [place] [address] PERIPHERAL BLOOD SMEAR - PATH REVIEW LAB [id number] 08:14:00 Test Item Value Reference Range Interpretation Comments PERIPHERAL SMR REVIEW Neutrophilic (BEAKER) (test code = leukocytosis and 2640) microcytic anemia. No blast forms seen. [id number] Nazario Becker M.D. (BEAKER) (test code = (electronic signature) 4419) (MANUAL DIFFERENTIAL)2017-11-12 08:12:00 Test Item Value Reference [...] few 963) BODY FLUID CULTURE + GRAM [id number] 08:10:00 Test Item Value Reference Range Interpretation Comments CULTURE (BEAKER) (test No growth code = 1095) GRAM STAIN RESULT 3+ White blood cells (BEAKER) (test code = seen 1123) GRAM STAIN RESULT No organisms seen (BEAKER) (test code = 86252) POCT-GLUCOSE [id number] 06:18:00 Test Item Value Reference Range Interpretation Comments POC-GLUCOSE METER 113 mg/dL 70-110 H TESTED AT [facility] [address] (BEAKER) (test code [facility] = 1538) [place] [address] CBC W/PLT COUNT & AUTO [id number] 04:40:00 Test Item Value Reference Range Interpretation [...] (BEAKER) (test code = 2801) BASIC METABOLIC [id number] 03:56:00 Test Item Value Reference Range Interpretation [...] APPLICABLE FOR DIALYSIS PATIEN TS. BUN AND [id number] 03:55:00 Test Item Value Reference Range Interpretation Comments BLOOD UREA NITROGEN 19 mg/dL 10-26 (BEAKER) (test code = 354) CREATININE (BEAKER) 0.81 mg/dL 0.50-1.20 (test code = 358) EGFR (BEAKER) (test 88 mL/min/1.73 ESTIMA YUMIKO GFR IS code = 1092) sq m NOT ACCURATE CREATININE CLEARANCE IN PREDICTING GLOMERULAR FILTRATION RATE . ESTIMATED GFR I S NOT APPLICABLE FOR DIALYSIS PATIEN TS. POCT-GLUCOSE [id number] 20:51:00 Test Item Value Reference Range Interpretation Comments POC-GLUCOSE METER 151 mg/dL 70-110 H TESTED AT [facility] [address] (BEAKER) (test code [facility] = 1538) [place] [address] POCT-GLUCOSE [id number] 17:20:00 Test Item Value Reference Range Interpretation Comments POC-GLUCOSE METER 101 mg/dL 70-110 TESTED AT [facility] [address] (BEAKER) (test code [facility] = 1538) [place] [address] SPIN/CONCENTRATION [id number] 15:42:00 Test Item Value Reference Range Interpretation Comments CONCENTRATION CHARGED (BEAKER) (test Done code = 2657) POCT-GLUCOSE [id number] 11:34:00 Test Item Value Reference Range Interpretation Comments POC-GLUCOSE METER 109 mg/dL 70-110 TESTED AT [facility] [address] (BEAKER) (test code [facility] = 1538) [place] [address] VANCOMYCIN LEVEL, [id number] 09:14:00 Test Item Value Reference Range Interpretation Comments VANCOMYCIN TROUGH (BEAKER) (test 10.6 ug/mL 10.0-20.0 code = 522) BASIC METABOLIC [id number] 05:59:00 Test Item Value Reference Range Interpretation [...] APPLICABLE FOR DIALYSIS PATIEN TS. BUN AND [id number] 05:58:00 Test Item Value Reference Range Interpretation Comments BLOOD UREA NITROGEN 17 mg/dL 10-26 (BEAKER) (test code = 354) CREATININE (BEAKER) 0.80 mg/dL 0.50-1.20 (test code = 358) EGFR (BEAKER) (test 90 mL/min/1.73 ESTIMA YUMIKO GFR IS code = 1092) sq m NOT ACCURATE CREATININE CLEARANCE IN PREDICTING GLOMERULAR FILTRATION RATE . ESTIMATED GFR I S NOT APPLICABLE FOR DIALYSIS PATIEN TS. POCT-GLUCOSE [id number] 05:49:00 Test Item Value Reference Range Interpretation Comments POC-GLUCOSE METER 121 mg/dL 70-110 H TESTED AT [facility] [address] (BEAKER) (test code [facility] = 1538) [place] [address] CBC W/PLT COUNT & AUTO [id number] 05:43:00 Test Item Value Reference Range Interpretation [...] PERCENT (BEAKER) (test code = 2801) POCT-GLUCOSE [id number] 00:07:00 Test Item Value Reference Range Interpretation Comments POC-GLUCOSE METER 150 mg/dL 70-110 H TESTED AT [facility] [address] (BEAKER) (test code [facility] = 1538) [place] [address] RAD, HIP, 1 VIEW, [id number] 23:51:00Reason for exam:->postopFINAL REPORT Right hip. HISTORY: Postoperative. COMPARISON STUDY: October 29, 2017. FINDINGS: A single frontal view of the right hip demonstrates a hemiarthroplasty in place. No cement is identified. There is no evidence of fracture or malalignment on this single projection. Signed: Alexandrea Martineseport Verified Date/Time: 11/10/2017 23:51:24 Reading Location: [facility] C013X Ortho Consult Reading Room RAD, PELVIS, 1 OR 2 [id number] 23:22:00Reason for exam:->Hip ArthroplastyReason for exam:->X-Table Lateral [...] MDReport Verified Date/Time: 11/10/2017 23:22:52 Reading Location: [facility] C013X Ortho Consult Reading Room POCT-GLUCOSE [id number] 22:54:00 Test Item Value Reference Range Interpretation Comments POC-GLUCOSE METER 140 mg/dL 70-110 H TESTED AT [facility] [address] ([facility]) (test code [facility] = 1538) [place] [address] POCT-GLUCOSE [id number] 16:57:00 Test Item Value Reference Range Interpretation Comments POC-GLUCOSE METER 98 mg/dL 70-110 TESTED AT [facility] [address] ([facility]) (test code = [facility] 1538) [place] [address] POCT-GLUCOSE [id number] 12:41:00 Test Item Value Reference Range Interpretation Comments POC-GLUCOSE METER 111 mg/dL 70-110 H TESTED AT [facility] [address] ([facility]) (test code [employer] [facility] = 1538) [place] [address] (MANUAL DIFFERENTIAL)2017-11-10 07:35:00 Test Item Value Reference [...] = 762) CBC W/PLT COUNT & AUTO [id number] 07:32:00 Test Item Value Reference Range Interpretation [...] 0-0 CELLS (BEAKER) (test code = 413) [id number] 07:25:00 Test Item Value Reference Range Interpretation Comments PHOSPHORUS (BEAKER) (test code = 3.5 mg/dL 2.5-4.5 604) [id number] 07:25:00 Test Item Value Reference Range Interpretation Comments MAGNESIUM (BEAKER) (test code = 1.7 mg/dL 1.5-3.0 627) BASIC METABOLIC [id number] 07:25:00 Test Item Value Reference Range Interpretation [...] NOT APPLICABLE FOR DIALYSIS PATIEN TS. POCT-GLUCOSE [id number] 06:45:00 Test Item Value Reference Range Interpretation Comments POC-GLUCOSE METER 121 mg/dL 70-110 H TESTED AT [facility] [address] (BEAKER) (test code [facility] = 1538) [place] [address] POCT-GLUCOSE [id number] 22:14:00 Test Item Value Reference Range Interpretation Comments POC-GLUCOSE METER 124 mg/dL 70-110 H TESTED AT [facility] [address] ([facility]) (test code [facility] = 1538) [place] [address] VANCOMYCIN LEVEL, [id number] 21:02:00 Test Item Value Reference Range Interpretation Comments VANCOMYCIN TROUGH ([facility]) (test 9.6 ug/mL 10.0-20.0 L code = 522) POCT-GLUCOSE [id number] 17:22:00 Test Item Value Reference Range Interpretation Comments POC-GLUCOSE METER 98 mg/dL 70-110 TESTED AT [facility] [address] ([facility]) (test code = [facility] 1538) [place] [address] POCT-GLUCOSE [id number] 11:36:00 Test Item Value Reference Range Interpretation Comments POC-GLUCOSE METER 127 mg/dL 70-110 H TESTED AT [facility] [address] ([facility]) (test code [facility] = 1538) [place] [address] WOUND CULTURE + GRAM [id number] 11:05:00 Test Item Value Reference Interpretation Comments Range CULTURE ([facility]) (test ENTEROBACTER A <1+ E [...] No organisms seen (AKER) (test code = 112293) POCT-GLUCOSE [id number] 05:54:00 Test Item Value Reference Range Interpretation Comments POC-GLUCOSE METER 116 mg/dL 70-110 H TESTED AT [facility] [address] (BEAKER) (test code [facility] = 1538) [place] [address] [id number] 03:42:00 Test Item Value Reference Range Interpretation Comments PHOSPHORUS (BEAKER) (test code = 3.8 mg/dL 2.5-4.5 604) [id number] 03:42:00 Test Item Value Reference Range Interpretation Comments MAGNESIUM (BEAKER) (test code = 1.9 mg/dL 1.5-3.0 627) BASIC METABOLIC [id number] 03:42:00 Test Item Value Reference Range Interpretation [...] PATIEN TS. CBC W/PLT COUNT & AUTO [id number] 03:21:00 Test Item Value Reference Range Interpretation [...] PERCENT (BEAKER) (test code = 2801) POCT-GLUCOSE [id number] 20:55:00 Test Item Value Reference Range Interpretation Comments POC-GLUCOSE METER 122 mg/dL 70-110 H TESTED AT [facility] [address] (BEAKER) (test code [facility] = 1538) [place] [address] POCT-GLUCOSE [id number] 16:19:00 Test Item Value Reference Range Interpretation Comments POC-GLUCOSE METER 136 mg/dL 70-110 H TESTED AT [facility] [address] (BEAKER) (test code [facility] = 1538) [place] [address] HEMOGLOBIN AND [id number] 14:19:00 Test Item Value Reference Range Interpretation Comments HEMOGLOBIN (BEAKER) (test code = 8.1 GM/DL 12.0-15.5 L 410) HEMATOCRIT (BEAKER) (test code = 24.9 % 36.0-46.0 L 411) POCT-GLUCOSE [id number] 12:13:00 Test Item Value Reference Range Interpretation Comments POC-GLUCOSE METER 142 mg/dL 70-110 H TESTED AT [facility] [address] (BEAKER) (test code [facility] = 1538) [place] [address] POCT-GLUCOSE [id number] 06:02:00 Test Item Value Reference Range Interpretation Comments POC-GLUCOSE METER 109 mg/dL 70-110 TESTED AT [facility] [address] (BEAKER) (test code [facility] = 1538) [place] [address] POCT-GLUCOSE [id number] 05:38:00 Test Item Value Reference Range Interpretation Comments POC-GLUCOSE METER 150 mg/dL 70-110 H TESTED AT [facility] [address] (BEAKER) (test code [facility] = 1538) [place] [address] TYPE AND SCREEN, [id number] 03:11:00 Test Item Value Reference Range Interpretation Comments ABO/RH AUTOMATED (BEAKER) (test B Positive code = 2260) AB SCREEN (BEAKER) (test code = Negative 923) HEMOGLOBIN AND [id number] 02:41:00 Test Item Value Reference Range Interpretation Comments HEMOGLOBIN (BEAKER) (test code = 5.9 GM/DL 12.0-15.5 LL 410) HEMATOCRIT (BEAKER) (test code = 18.2 % 36.0-46.0 LL 411) COMPREHENSIVE METABOLIC [id number] 01:43:00 Test Item Value Reference Range Interpretation [...] S NOT APPLICABLE FOR DIALYSIS PATIEN TS. [id number] 01:36:00 Test Item Value Reference Range Interpretation Comments PHOSPHORUS (BEAKER) (test code = 3.3 mg/dL 2.5-4.5 604) [id number] 01:36:00 Test Item Value Reference Range Interpretation Comments MAGNESIUM (BEAKER) (test code = 1.9 mg/dL 1.5-3.0 627) LACTIC ACID, VENOUS, WHOLE [id number] 01:29:00 Test Item Value Reference Range Interpretation Comments LACTATE BLOOD VENOUS (2) (BEAKER) 0.8 mmol/L 0.5-2.2 (test code = 2872) Effective 07/19/2015: Units/Reference Range ChangeNew: 0.5-2.2 mmol/L Previous: 5-20 mg/dLCBC W/PLT COUNT & AUTO [id number] 01:25:00 Test Item Value Reference Range Interpretation [...] PERCENT (BEAKER) (test code = 2801) POCT-GLUCOSE [id number] 21:52:00 Test Item Value Reference Range Interpretation Comments POC-GLUCOSE METER 113 mg/dL 70-110 H TESTED AT [facility] [address] ([place]) (test code [facility] = 1538) [place] [address] CT, EXTREMITY, LOWER WITHOUT CONTRAST, [id number] 19:15:00FINAL REPORT CT scan of the right [...] seen within this abscess. Signed: Alexandrea Martines MDReport Verified Date/Time: 11/07/2017 19:15:59 Reading Location: [address] Consult Reading Room RAD, HIP, 2 VIEWS, [id number] 16:19:00Reason for exam:->HIP PAIN FINAL REPORT INDICATION:Right hip pain status post right hip replacement ninedays ago. COMPARISON: October 29, 2017 TECHNIQUE: Right hip radiograph two views. FINDINGS / IMPRESSION:Total right hip replacement is well positioned and normally aligned on AP and frog-leg lateral views. No fracture is demonstrated. Residual air in the lateral hip soft tissues noted. Signed: Sandro Singletary MDReport Verified Date/Time: 11/07/2017 16:19:47 Reading Location: [facility] CBC W/PLT COUNT & AUTO [id number] 16:00:00 Test Item Value Reference Range Interpretation [...] (BEAKER) (test code Normal = 762) C-REACTIVE [id number] 15:30:00 Test Item Value Reference Range Interpretation Comments C-REACTIVE PROTEIN (BEAKER) (test 47.39 mg/dL 0.00-0.50 H code = 676) COMPREHENSIVE METABOLIC [id number] 15:30:00 Test Item Value Reference Range Interpretation [...] APPLICABLE FOR DIALYSIS PATIEN TS. BASIC METABOLIC [id number] 06:26:00 Test Item Value Reference Range Interpretation [...] PATIEN TS. CBC W/PLT COUNT & AUTO [id number] 06:12:00 Test Item Value Reference Range Interpretation [...] L 0.00-0.20 (test code = 417) POCT-GLUCOSE [id number] 05:55:00 Test Item Value Reference Range Interpretation Comments POC-GLUCOSE METER 120 mg/dL 70-110 H TESTED AT [facility] [address] (BEAKER) (test code [facility] = 1538) [place] [address] POCT-GLUCOSE [id number] 21:07:00 Test Item Value Reference Range Interpretation Comments POC-GLUCOSE METER 121 mg/dL 70-110 H TESTED AT [facility] [address] (BEAKER) (test code [facility] = 1538) [place] [address] POCT-GLUCOSE [id number] 17:45:00 Test Item Value Reference Range Interpretation Comments POC-GLUCOSE METER 131 mg/dL 70-110 H TESTED AT [facility] [address] (BEAKER) (test code [facility] = 1538) [place] [address] HEMOGLOBIN AND [id number] 14:26:00 Test Item Value Reference Range Interpretation Comments HEMOGLOBIN (BEAKER) (test code = 7.9 GM/DL 12.0-15.0 L 410) HEMATOCRIT (BEAKER) (test code = 24.6 % 36.0-45.0 L 411) POCT-GLUCOSE [id number] 11:22:00 Test Item Value Reference Range Interpretation Comments POC-GLUCOSE METER 134 mg/dL 70-110 H TESTED AT [facility] [address] (BEAKER) (test code [facility] = 1538) [place] [address] BASIC METABOLIC [id number] 05:16:00 Test Item Value Reference Range Interpretation [...] APPLICABLE FOR DIALYSIS PATIEN TS. Specimen recollected. [id number] 04:56:00 Test Item Value Reference Range Interpretation Comments POC-GLUCOSE METER 141 mg/dL 70-110 H TESTED AT [facility] [address] (BEAKER) (test code [facility] = 1538) [place] [address] HEMOGLOBIN AND [id number] 04:10:00 Test Item Value Reference Range Interpretation [...] few 965) CBC W/PLT COUNT & AUTO [id number] 21:34:00 Test Item Value Reference Range Interpretation [...] 6.5-10.5 (BEAKER) (test code = 754) POCT-GLUCOSE [id number] 21:17:00 Test Item Value Reference Range Interpretation Comments POC-GLUCOSE METER 126 mg/dL 70-110 H TESTED AT [facility] [address] (BEAKER) (test code [employer] [facility] = 1538) [place] [address] POCT-GLUCOSE [id number] 18:04:00 Test Item Value Reference Range Interpretation Comments POC-GLUCOSE METER 117 mg/dL 70-110 H TESTED AT [facility] [address] (BEAKER) (test code [employer] [facility] = 1538) [place] [address] POCT-GLUCOSE [id number] 11:38:00 Test Item Value Reference Range Interpretation Comments POC-GLUCOSE METER 133 mg/dL 70-110 H TESTED AT [facility] [address] (BEAKER) (test code [facility] = 1538) [place] [address] BASIC METABOLIC [id number] 04:20:00 Test Item Value Reference Range Interpretation [...] APPLICABLE FOR DIALYSIS PATIEN TS. HEMOGLOBIN AND [id number] 04:11:00 Test Item Value Reference Range Interpretation Comments HEMOGLOBIN (BEAKER) (test code = 8.1 GM/DL 12.0-15.0 L 410) HEMATOCRIT (BEAKER) (test code = 25.6 % 36.0-45.0 L 411) POCT-GLUCOSE [id number] 04:03:00 Test Item Value Reference Range Interpretation Comments POC-GLUCOSE METER 151 mg/dL 70-110 H TESTED AT [facility] [address] (BEAKER) (test code [facility] = 1538) [place] [address] RAD, HIP, 1 VIEW, [id number] 21:16:00Reason for exam:->postopShould this be performed at [...] Lau Verified Date/Time: 10/29/2017 21:16:21 Reading Location: [place] [id number] Transitional Re ading Room POCT-GLUCOSE [id number] 20:20:00 Test Item Value Reference Range Interpretation Comments POC-GLUCOSE METER 76 mg/dL 70-110 TESTED AT [facility] [address] (BEAKER) (test code = [facility] 4246) [place] [address] POCT-GLUCOSE [id number] 15:13:00 Test Item Value Reference Range Interpretation Comments POC-GLUCOSE METER 150 mg/dL 70-110 H TESTED AT [facility] [address] ([facility]) (test code [facility] = 1538) [place] [address] RAD, HIP, OPERATIVE, [id number] 14:41:00Reason for exam:->RequiredFINAL REPORT RIGHT HIP ONE VIEW HISTORY: Right hip pain, right hip arthroplasty COMPARISON: None FINDINGS: Single intraoperative image of the right hip/low pelvis shows in progress changes of right hip total arthroplasty. A reamer is present in the proximal right femur. The acetabular region is obscured by overlying hardware. Signed: Ceci Aldrich Verified Date/Time: 10/29/2017 14:41:51 Reading Location: [facility] Radiology Reading Room POCT- GLUCOSE [id number] 09:53:00 Test Item Value Reference Range Interpretation Comments POC-GLUCOSE METER 104 mg/dL 70-110 TESTED AT [facility] [address] (BEAKER) (test code [facility] = 1538) [place] [address] BASIC METABOLIC [id number] 12:23:00 Test Item Value Reference Range Interpretation [...] APPLICABLE FOR DIALYSIS PATIEN TS. URINALYSIS W/ [id number] 12:21:00 Test Item Value Reference Range Interpretation [...] code = 1663) SOURCE(BEAKER) (test code = 2836) CBC W/PLT COUNT & AUTO [id number] 12:18:00 Test Item Value Reference Range Interpretation [...] L 0.00-0.20 (test code = 417) MRSA [id number] 08:33:00 Test Item Value Reference Range Interpretation Comments CULTURE (BEAKER) (test code No MRSA isolated = 1095)
[2021-05-10] MEDS ORDERED: MORPHINE 4 MG/ML SYR ONE (14:19)
--- NOTE | 2021-05-10 14:24 | RAD REPORT ---
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 No bowel obstruction ident ified. No osseous lesions are seen. Body wall edema is present. Right hip arthroplasty. Inguinal lymp hadenopathy. IMPRESSION: Mild enlargement of an iliopsoas mass consistent with patient's known sarcoma. Increasin g body wall edema.
[2021-05-10 14:36] LABS: Absolute Lymphocytes (CBC) 0.7 K/uL (0.7-4.9); Hematocrit 22.4 % (36.0-45.0); Lymphocytes % 8.5 % (15.3-44.8); MPV 7.1 fL (7.6-11.3); RBC Red Blood Cell Count 2.64 M/uL (3.86-4.86)
[2021-05-10 15:04] LABS: Potassium 2.8 mmol/L (3.5-5.1)
--- NOTE | 2021-05-10 15:30 | ER ---
Nurse's Notes [facility] Name: Sade Galdamez Age: 61 yrs Sex: Female : 1960 Arrival Date: 05/10/2021 Time: 12:44 Bed 16 Private MD: Diagnosis: Hypokalemia;Anemia, unspecified;Pain in left hip Presentation: 05/10 12:44 Chief complaint: Patient states: c/o of pain in right groin, weakness. Coronavirus cb5 screen: Vaccine status:. Initial Sepsis Screen: Does the patient meet any 2 criteria? No. Patient's initial sepsis screen is negative. Risk Assessment: Do you want to hurt yourself or someone else? Patient reports no desire to harm self or others. 12:44 Method Of Arrival: EMS: [facility] cb5 12:44 Acuity: ABDIRIZAK 3 cb5 14:10 Ebola Screen: Patient negative for fever greater than or equal to 101.5 degrees cb5 Fahrenheit, and additional compatible Ebola Virus Disease symptoms Patient denies exposure to infectious person. Patient denies travel to an Ebola-affected area in the 21 days before illness onset. Triage Assessment: 13:16 General: Appears uncomfortable, Behavior is calm, cooperative. Pain: Complains of pain cb5 in right leg Pain currently is 5 out of 10 on a pain scale. Historical: - Allergies: 18:00 Iodinated Contrast Media - IV Dye; iw 18:00 iopamidol; iw - PMHx: 18:00 breast cancer; chemotherapy; Hypertension; Tumor to groin area; iw - PSHx: 18:00 ovi mastectomy; hysterectomy; iw - Immunization history:: Adult Immunizations up to date. - Social history:: Smoking status: unknown. Screenin:50 Abuse screen: Denies threats or abuse. Denies injuries from another. Nutritional cb5 screening: No deficits noted. Tuberculosis screening: No symptoms or risk factors identified. Fall Risk None identified. Assessment: 13:00 General: Appears in no apparent distress. uncomfortable, Behavior is calm, cooperative, cb5 appropriate for age. Pain: Complains of pain in left hip and right leg Pain currently is 5 out of 10 on a pain scale. Neuro: No deficits noted. Level of Consciousness is awake, alert, obeys commands, Oriented to person, place, time, situation, Appropriate for age. Cardiovascular: No deficits noted. Respiratory: No deficits noted. GI: No deficits noted. : No deficits noted. EENT: No deficits noted. Derm: No deficits noted. Musculoskeletal: No deficits noted. 15:00 Pain: Complains of pain in left hip and right leg Pain currently is 2 out of 10 on a cb5 pain scale. 16:00 Reassessment: Patient and/or family updated on plan of care and expected duration. Pain cb5 level reassessed. 17:00 Reassessment: Patient and/or family updated on plan of care and expected duration. Pain cb5 level reassessed. 18:31 Reassessment: Patient and/or family updated on plan of care and expected duration. Pain cb5 level reassessed. Vital Signs: 12:44 BP 119 / 71; Pulse 81; Resp 16; Temp 98.6; Pulse Ox 98% ; Pain 5/10; cb5 13:00 BP 126 / 74; Pulse 96; Resp 16; Pulse Ox 98% ; Pain 4/10; cb5 15:00 BP 129 / 57; Pulse 101; Resp 16; Pulse Ox 98% ; cb5 17:17 BP 123 / 67; Pulse 101; Resp 16; Pulse Ox 98% ; cb5 18:00 BP 120 / 76; Pulse 99; Resp 16; Pulse Ox 98% ; cb5 ED Course: 12:44 Patient arrived in ED. iw 13:00 Placed in gown. Bed in low position. Call light in reach. cb5 13:00 No provider procedures requiring assistance completed. cb5 13:12 Gaby Charlton, RN is Primary Nurse. cb5 13:14 Sherman Noble DO is Attending Physician. ms3 13:15 Sherman Noble DO is Attending Physician. ms3 13:16 Triage completed. cb5 13:16 Arm band placed on. EKG completed in triage. Results shown to MD. cb5 14:05 Pelvis Wo Cont In Process Unspecified. EDMS 14:30 Inserted saline lock: 18 gauge in left upper arm, using aseptic technique. Blood jh6 collected. 15:07 Notified ED physician of a critical lab result(s). K+ 2.8. tw2 15:27 Scott Coffey MD is Hospitalizing Provider. ms3 15:36 Phosphorus Sent. cb5 15:36 Magnesium Sent. cb5 16:31 SARS-COV-2 RT PCR (Document "Date of Onset" if Symptomatic) Sent. cb5 18:45 Patient admitted, IV remains in place. iw Administered Medications: 14:30 Drug: morphine 4 mg Route: IVP; Site: left upper arm; jh6 15:36 Drug: Potassium Bicarb \\T\\ Chloride Effervescent Tablet 25 mEq Route: PO; cb5 15:37 Drug: Potassium Chloride 40 mEq Route: PO; cb5 Outcome: 15:29 Decision to Hospitalize by Provider. ms3 18:45 Admitted to Med/surg accompanied by nurse, accompanied by tech, with chart, Report iw called to [facility] 18:45 Condition: good 18:45 Discharge instructions given to patient, Instructed on the need for admit. 18:50 Patient left the ED. iw Signatures: Dispatcher [employer] EDDelfina Walker, RN RN iw Gaye Camejo, RN RN tw2 Sherman Noble, DO ms3 Millie Vega, RN RN jh6 Gaby Charlton, RN RN cb5 Corrections: (The following items were deleted from the chart) 14:23 13:00 General: pt is combative, yelling at staff profanity, kicking, attempting to cb5 pulling a monitor. Seven healthcare professionals at [facility] assisting patient. . cb5
--- NOTE | 2021-05-10 15:30 | EDPHYS ---
Physician Documentation [facility] Name: Sade Galdamez Age: 61 yrs Sex: Female : 1960 Arrival Date: 05/10/2021 Time: 12:44 Bed 16 Private MD: ED Physician Sherman Noble HPI: 05/10 13:10 This 61 yrs old Black Female presents to ER via EMS with complaints of left hip pain ms3 s/p fall yesterday. 13:48 Onset: The symptoms/episode began/occurred acutely, yesterday. Modifying factors: The ms3 symptoms are alleviated by nothing, the symptoms are aggravated by any movement. Associated signs and symptoms: Loss of consciousness: the patient experienced no loss of consciousness. Severity of symptoms: in the emergency department the symptoms are unchanged, Despite treatment in the emergency department yesterday. 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 61-year-old female with past medical history of sarcoma presents status post fall yesterday complaining of 10/10 left hip pain that became worse after the fall. Patient states the pain is throbbing. Patient states pain is worse with movement. Patient denies alleviating factors. Patient denies fevers, chills, nausea, vomiting.. Historical: - Allergies: 18:00 Iodinated Contrast Media - IV Dye; iw 18:00 iopamidol; iw - PMHx: 18:00 breast cancer; chemotherapy; Hypertension; Tumor to groin area; iw - PSHx: 18:00 ovi mastectomy; hysterectomy; iw - Immunization history:: Adult Immunizations up to date. - Social history:: Smoking status: unknown. ROS: 13:58 Constitutional: Negative for fever, and chills. Neck: Negative for injury, pain, and ms3 swelling, Respiratory: Negative for shortness of breath, cough, wheezing, and pleuritic chest pain, Abdomen/GI: Negative for abdominal pain, nausea, vomiting, diarrhea, and constipation, Back: Negative for injury and pain. 13:58 Skin: Negative for injury, rash, and discoloration, Hematologic/Lymphatic: Negative for swollen nodes, abnormal bleeding, and unusual bruising. 13:58 MS/extremity: Positive for pain, left hip pain. Exam: 13:59 Constitutional: This is a well developed, well nourished patient who is awake, alert, ms3 and in no acute distress. Neck: Trachea midline, no cervical lymphadenopathy. Supple, full range of motion without nuchal rigidity, or vertebral point tenderness. No Meningismus. Chest/axilla: Normal chest wall appearance and motion. Nontender with no deformity. Cardiovascular: Regular rate and rhythm with a normal S1 and S2. No gallops, murmurs, or rubs. Normal PMI, no JVD. No pulse deficits. Respiratory: Lungs have equal breath sounds bilaterally, clear to auscultation and percussion. No rales, rhonchi or wheezes noted. No increased work of breathing, no retractions or nasal flaring. Abdomen/GI: Soft, non-tender, with normal bowel sounds. No distension or tympany. No guarding or rebound. No evidence of tenderness throughout. Skin: Warm, dry with normal turgor. Normal color with no rashes, no lesions, and no evidence of cellulitis. 13:59 Neuro: Awake and alert, GCS 15, oriented to person, place, time, and situation. Cranial nerves II-XII grossly intact. Motor strength 5/5 in all extremities. Sensory grossly intact. Cerebellar exam normal. Normal gait. 13:59 Musculoskeletal/extremity: Extremities: pain, ROM: Circulation is intact in all extremities. Sensation intact. Joints: the left hip displays painful range of motion, tenderness. 15:55 ECG was reviewed by the Attending Physician. ms3 Vital Signs: 12:44 BP 119 / 71; Pulse 81; Resp 16; Temp 98.6; Pulse Ox 98% ; Pain 5/10; cb5 13:00 BP 126 / 74; Pulse 96; Resp 16; Pulse Ox 98% ; Pain 4/10; cb5 15:00 BP 129 / 57; Pulse 101; Resp 16; Pulse Ox 98% ; cb5 17:17 BP 123 / 67; Pulse 101; Resp 16; Pulse Ox 98% ; cb5 18:00 BP 120 / 76; Pulse 99; Resp 16; Pulse Ox 98% ; cb5 MDM: 13:28 Patient medically screened. ms3 14:01 Differential diagnosis: hip fracture, intertrochanteric fracture, femoral neck ms3 fracture, Sarcoma. Data reviewed: vital signs, nurses notes. 15:31 Data interpreted: air sampling and monitoring: rate is 101 beats/min, rhythm is sinus tachycardia. 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 15:33 Medication response: morphine partially relieved the patient's pain. ED course: ms3 Discussed case with Dr Coffey. He accepts patient as observation. Discussed plan with patient. Patient understands/ agrees with plan. Patient states she is still having L hip pain. Will order additional 4 mg Morphine.. 15:54 Test interpretation: by ED physician or midlevel provider: ECG. ms3 05/10 13:31 Order name: CBC with Diff; Complete Time: 15:04 ms3 05/10 15:05 Interpretation: Reviewed. Hgb 7.4 . ms3 05/10 13:31 Order name: Basic Metabolic Panel; Complete Time: 15:06 ms3 05/10 15:31 Interpretation: Potassium 2.8. ms3 05/10 15:30 Order name: Magnesium ms3 05/10 15:30 Order name: Phosphorus ms3 05/10 15:30 Order name: Magnesium EDMS 05/10 15:30 Order name: Phosphorus EDMS 05/10 14:03 Order name: Pelvis Wo Cont; Complete Time: 14:28 EDMS 05/10 16:19 Order name: SARS-COV-2 RT PCR (Document "Date of Onset" if Symptomatic) em1 05/10 16:49 Order name: Comprehensive Metabolic Panel EDMS 05/10 16:49 Order name: Comprehensive Metabolic Panel EDMS 05/10 16:49 Order name: CBC with Automated Diff EDMS 05/10 16:49 Order name: CBC with Automated Diff EDMS 05/10 17:00 Order name: BB Add On EDMS 05/10 15:32 Order name: EKG; Complete Time: 15:33 ms3 05/10 15:33 Order name: Cardiac monitoring; Complete Time: 15:36 ms3 05/10 16:49 Order name: Heart Healthy EDMS EC:55 Rate is 95 beats/min. Rhythm is regular. QRS [place] is Normal. Clinical impression: NSR ms3 w/ Non-specific ST/T Changes. Administered Medications: 14:30 Drug: morphine 4 mg Route: IVP; Site: left upper arm; jh6 15:36 Drug: Potassium Bicarb \\T\\ Chloride Effervescent Tablet 25 mEq Route: PO; cb5 15:37 Drug: Potassium Chloride 40 mEq Route: PO; cb5 Disposition: 15:35 Co-signature as Attending PhysicianSherman DO. ms3 15:56 Co-signature as Attending Physician, Sherman Noble DO. ms3 Disposition Summary: 05/10/21 15:29 Hospitalization Ordered Hospitalization Status: Observation ms3 Provider: Scott Coffey ms3 Location: Telemetry/MedSurg (observation) ms3 Condition: Stable ms3 Problem: new ms3 Symptoms: are unchanged ms3 Bed/Room Type: Standard ms3 Room Assignment: 220(05/10/21 18:00) iw Diagnosis - Hypokalemia ms3 - Anemia, unspecified ms3 - Pain in left hip ms3 Forms: - Medication Reconciliation Form ms3 - SBAR form ms3 Signatures: Dispatcher [employer] EDDelfina Walker, RN RN Sherman Hodges DO DO ms3 Millie Vega RN RN jh6 Gaby Charlton RN RN cb5 Corrections: (The following items were deleted from the chart) 14:04 13:31 Pelvis W/Cont+CT.RAD.BRZ ordered. EDMS EDMS 18:00 15:29 ms3 iw
[2021-05-10 15:57] LABS: Phosphorus 2.8 mg/dL (2.5-4.9)
[2021-05-10] MEDS ORDERED: ONDANSETRON 4 MG/2 ML VIAL IV PRN (16:47)
[2021-05-10] MEDS ORDERED: ACETAMINOPHEN 500 MG TAB PO PRN (16:47)
[2021-05-10] MEDS ORDERED: MORPHINE 2 MG/ML SYR ONE (18:17)
[2021-05-10] MEDS: MORPHINE 2 MG/ML SYR IV PRN (18:35)
[2021-05-10] MEDS: IPRATROPIUM BROM 0.5MG/2.5ML NEB SCH (19:16)
[2021-05-10] MEDS: ALBUTEROL 2.5 MG/3 ML NEB SOL NEB SCH (19:16)
[2021-05-10] MEDS: NA CHLORIDE 0.9% 1,000 ML IV SCH (20:14)
[2021-05-10] MEDS: POTASSIUM CL SA 10 MEQ TAB PO SCH (20:26)
[2021-05-10 21:06] VITALS: BMI 45.1
[2021-05-10] MEDS ORDERED: NA CHLORIDE 0.9% 250 ML ONE (21:40)
[2021-05-10] MEDS: APIXABAN 5 MG TABLET PO SCH (21:48)
[2021-05-10] MEDS: AMILORIDE HCL 5 MG TABLET PO SCH (21:48)
[2021-05-10] MEDS: HYDROMORPHONE ORAL 4 MG TAB PO PRN (21:48)
[2021-05-10] MEDS: GABAPENTIN 400 MG CAP PO SCH (22:31)
[2021-05-10] MEDS: PROMETHAZINE 25 MG TABLET PO PRN (22:38)
[2021-05-11] MEDS: ALBUTEROL 2.5 MG/3 ML NEB SOL NEB SCH ×4 (02:00→20:00)
[2021-05-11] MEDS: IPRATROPIUM BROM 0.5MG/2.5ML NEB SCH ×4 (02:00→20:00)
[2021-05-11] MEDS: HYDROMORPHONE ORAL 4 MG TAB PO PRN ×5 (02:02→21:25)
[2021-05-11] MEDS ORDERED: NA CHLORIDE 0.9% 250 ML ONE (02:22)
[2021-05-11] MEDS: PROMETHAZINE 25 MG TABLET PO PRN ×5 (03:00→21:26)
[2021-05-11] MEDS: NA CHLORIDE 0.9% 1,000 ML IV SCH ×2 (06:20→16:54)
[2021-05-11] MEDS: GABAPENTIN 400 MG CAP PO SCH ×2 (08:30→21:18)
[2021-05-11] MEDS: POTASSIUM CL SA 10 MEQ TAB PO SCH ×3 (08:30→21:19)
[2021-05-11] MEDS: APIXABAN 5 MG TABLET PO SCH ×2 (08:31→21:18)
[2021-05-11] MEDS: FUROSEMIDE 40 MG TABLET PO SCH (08:31)
[2021-05-11] MEDS: AMILORIDE HCL 5 MG TABLET PO SCH ×2 (08:32→21:18)
[2021-05-11] MEDS: DOCUSATE NA 100 MG CAP PO SCH (08:32)
[2021-05-11 09:20] LABS: Absolute Lymphocytes (CBC) 0.7 K/uL (0.7-4.9); Hematocrit 26.2 % (36.0-45.0); Lymphocytes % 9.9 % (15.3-44.8); RBC Red Blood Cell Count 3.08 M/uL (3.86-4.86)
[2021-05-11 11:25] LABS: AST/SGOT 7 U/L (15-37); Alkaline Phosphatase 74 U/L (45-117); BUN Blood Urea Nitrogen 11 mg/dL (7-18); Bicarbonate 29 mmol/L (21-32); Bilirubin Total 0.6 mg/dL (0.2-1.0); Glucose Level 91 mg/dL (74-106); Protein, Total 6.1 g/dL (6.4-8.2); Sodium Level 142 mmol/L (136-145)
[2021-05-11 11:27] LABS: ALT/SGPT < 6 U/L (12-78); Potassium 2.9 mmol/L (3.5-5.1)
[2021-05-11] MEDS ORDERED: FENTANYL 50 MCG/PATCH TD ONE (14:40)
[2021-05-11] MEDS: MORPHINE 2 MG/ML SYR IV PRN (19:45)
[2021-05-12] MEDS: MORPHINE 2 MG/ML SYR IV PRN ×3 (00:49→07:13)
[2021-05-12] MEDS: ALBUTEROL 2.5 MG/3 ML NEB SOL NEB SCH ×4 (02:00→20:00)
[2021-05-12] MEDS: IPRATROPIUM BROM 0.5MG/2.5ML NEB SCH ×4 (02:00→20:00)
[2021-05-12] MEDS: PROMETHAZINE 25 MG TABLET PO PRN ×5 (03:28→21:01)
[2021-05-12] MEDS: HYDROMORPHONE ORAL 4 MG TAB PO PRN (03:28)
[2021-05-12] MEDS: HYDROMORPHONE HCL 2 MG/ML inj IV PRN ×5 (04:49→21:01)
[2021-05-12] MEDS: NA CHLORIDE 0.9% 1,000 ML IV SCH ×2 (05:24→17:06)
[2021-05-12 08:22] LABS: Absolute Lymphocytes (CBC) 0.8 K/uL (0.7-4.9); Hematocrit 26.2 % (36.0-45.0); Lymphocytes % 12.3 % (15.3-44.8); MPV 7.1 fL (7.6-11.3); RBC Red Blood Cell Count 3.07 M/uL (3.86-4.86)
[2021-05-12 08:45] LABS: AST/SGOT 5 U/L (15-37); Alkaline Phosphatase 75 U/L (45-117); BUN Blood Urea Nitrogen 12 mg/dL (7-18); Bicarbonate 30 mmol/L (21-32); Bilirubin Total 0.6 mg/dL (0.2-1.0); Glucose Level 82 mg/dL (74-106); Potassium 3.4 mmol/L (3.5-5.1); Protein, Total 6.2 g/dL (6.4-8.2); Sodium Level 142 mmol/L (136-145)
[2021-05-12 08:46] LABS: ALT/SGPT < 6 U/L (12-78)
[2021-05-12] MEDS: FUROSEMIDE 40 MG TABLET PO SCH (09:11)
[2021-05-12] MEDS: DOCUSATE NA 100 MG CAP PO SCH (09:11)
[2021-05-12] MEDS: POTASSIUM CL SA 10 MEQ TAB PO SCH ×3 (09:11→20:54)
[2021-05-12] MEDS: APIXABAN 5 MG TABLET PO SCH ×2 (09:11→20:55)
[2021-05-12] MEDS: AMILORIDE HCL 5 MG TABLET PO SCH ×2 (09:11→20:55)
[2021-05-12] MEDS: GABAPENTIN 400 MG CAP PO SCH ×2 (09:11→20:55)
[2021-05-13] MEDS: ALBUTEROL 2.5 MG/3 ML NEB SOL NEB SCH ×4 (01:15→20:00)
[2021-05-13] MEDS: IPRATROPIUM BROM 0.5MG/2.5ML NEB SCH ×4 (01:15→20:00)
[2021-05-13] MEDS: PROMETHAZINE 25 MG TABLET PO PRN ×5 (02:16→18:35)
[2021-05-13] MEDS: HYDROMORPHONE HCL 2 MG/ML inj IV PRN ×4 (02:16→18:35)
[2021-05-13 06:02] LABS: Absolute Lymphocytes (CBC) 0.7 K/uL (0.7-4.9); Hematocrit 23.9 % (36.0-45.0); Lymphocytes % 14.4 % (15.3-44.8); MPV 7.5 fL (7.6-11.3); RBC Red Blood Cell Count 2.78 M/uL (3.86-4.86)
[2021-05-13] MEDS: MORPHINE 2 MG/ML SYR IV PRN (06:06)
[2021-05-13] MEDS: NA CHLORIDE 0.9% 1,000 ML IV SCH ×2 (06:14→20:30)
[2021-05-13 06:17] LABS: Potassium 3.4 mmol/L (3.5-5.1)
[2021-05-13] MEDS: POTASSIUM CL SA 10 MEQ TAB PO SCH ×3 (09:54→20:24)
[2021-05-13] MEDS: AMILORIDE HCL 5 MG TABLET PO SCH ×2 (09:54→20:25)
[2021-05-13] MEDS: GABAPENTIN 400 MG CAP PO SCH ×2 (09:54→20:24)
[2021-05-13] MEDS: FUROSEMIDE 40 MG TABLET PO SCH (09:55)
[2021-05-13] MEDS: DOCUSATE NA 100 MG CAP PO SCH (09:55)
[2021-05-13] MEDS: APIXABAN 5 MG TABLET PO SCH ×2 (09:55→20:24)
[2021-05-13] MEDS: MORPHINE 4 MG/ML SYR IV PRN (11:04)
[2021-05-14] MEDS: HYDROMORPHONE HCL 2 MG/ML inj IV PRN ×6 (00:01→22:11)
[2021-05-14] MEDS: PROMETHAZINE 25 MG TABLET PO PRN ×5 (00:02→17:55)
--- NOTE | 2021-05-14 01:16 | P.HP ---
Certification for Inpatient Patient admitted to: Inpatient With expected LOS: >2 Midnights Patient will require the following post-hospital care: None Practitioner: I am a practitioner with admitting privileges, knowledge of patient current condition, hospital course, and medical plan of care. Services: Services provided to patient in accordance with Admission requirements found in Title 42 Section 412.3 of the Code of Federal Regulations Patient History Date of Service: 05/10/21 Reason for admission: Hypokalemia and anemia History of Present Illness: Patient is a 61-year-old female who came to the hospital with severe hyperkalemia. Patient with also anemia. Patient came into the emergency room for further evaluation. In the emergency room patient was supplemented with potassium and her clinical symptoms are improving. Patient also started on pain control. Patient has a history of sarcoma and has not been able to get any treatment started. She was seen at [facility] but was told that her PICC line was infected. She was given IV antibiotics at that time for 2 weeks at [facility]. She was supposed to follow-up to get evaluation for chemotherapy but she has not been able to do this. Her prognosis remains very poor. Allergies iopamidol [From [id number]] Allergy (Verified 01/03/21 00:13) Shortness of breath Home Medications: Gabapentin [Neurontin] 800 mg PO BID 12/07/20 Hydromorphone [Dilaudid*] 4 mg PO Q4HP PRN 12/07/20 Promethazine Tab [Phenergan*] 25 mg PO Q4H PRN 12/23/20 Docusate [Colace Cap*] 100 mg PO DAILY #30 cap 12/30/20 Apixaban [Eliquis] 5 mg PO BID tablet 01/12/21 Potassium Oral Tab [Klor-Con 10 mEq Tab*] 20 meq PO TID 02/13/21 Amiloride HCl [Midamor*] 5 mg PO BID #90 tablet 02/14/21 Furosemide [Lasix] 40 mg PO DAILY #30 tab 02/15/21 fentaNYL [Fentanyl] 1 patch TOP SEECOM 05/10/21 - Past Medical/Surgical History Diabetic: No -: breast cancer -: liposarcoma -: HTN (resolved) -: Bilateral mastectomy -: hysterectomy -: R hip replacement Psychosocial/ Personal History: Retired, lives at home by self - Family History Mother Medical History: Diabetes Father Medical History: Cancer Notes: lung cancer Brother Medical History: Hypertension, Diabetes Sister History Unknown: Yes Medical History: Heart disease, Diabetes Notes: cirrhosis - Social History Smoking Status: Never smoker Alcohol use: No CD- Drugs: No Caffeine use: Yes Place of Residence: Home Review of Systems 10-point ROS is otherwise unremarkable Physical Examination - Vital Signs Temperature: 97.6 F Blood Pressure: 126/76 Pulse: 104 Respirations: 18 Pulse Ox (%): 98 - Physical Exam General: Alert, In no apparent distress, Oriented x3 HEENT: Atraumatic, PERRLA, Mucous membr. moist/pink, EOMI, Sclerae nonicteric Neck: Supple, 2+ carotid pulse no bruit, No LAD, Without JVD or thyroid abnormality Respiratory: Clear to auscultation bilaterally, Normal air movement Cardiovascular: Regular rate/rhythm, Normal S1 S2 Gastrointestinal: Normal bowel sounds, No tenderness Musculoskeletal: No tenderness Integumentary: Tenderness/swelling Neurological: Normal speech, Normal tone, Normal affect, Abnormal gait, Abnormal strength Lymphatics: No axilla or inguinal lymphadenopathy Assessment & Plan - Problems (Diagnosis) (1) Generalized weakness Current Visit: Yes Status: Acute (2) Hypokalemia Current Visit: Yes Status: Acute (3) Cancer related pain Current Visit: No Status: Acute (4) Dyspnea Current Visit: No Status: Acute Qualifiers: (5) Anemia Current Visit: No Status: Chronic Qualifiers: (6) Liposarcoma Current Visit: No Status: Chronic - Plan Plan: 1. Monitor H&H 2. Continue with potassium supplementation 3. Transfuse 2 units of packed red blood cells 4. Pain control 5. Rehab 6. detention facility versus rehab placement 7. GI DVT prophylaxis Discharge Plan: Home Plan to discharge in: Greater than 2 days - Advance Directives Does patient have a Living Will: Yes Does patient have a Durable POA for Healthcare: Yes - Code Status/Comfort Care Code Status Assessed: Yes Code Status: Full Code Critical Care: No Time Spent Managing PTS Care (In Minutes): 45
--- NOTE | 2021-05-14 01:18 | P.PN ---
Subjective Date of Service: 05/11/21 Patient is doing better. Potassium supplemented and blood transfusion received. Continue pain control and awaiting for SNF placement Review of Systems 10-point ROS is otherwise unremarkable Physical Examination - Vital Signs Temperature: 97.6 F Blood Pressure: 126/76 Pulse: 104 Respirations: 18 Pulse Ox (%): 98 - Physical Exam General: Alert, In no apparent distress, Oriented x3 HEENT: Atraumatic, PERRLA, EOMI Neck: Supple, JVD not distended Respiratory: Clear to auscultation bilaterally, Normal air movement Cardiovascular: Regular rate/rhythm, Normal S1 S2 Gastrointestinal: Normal bowel sounds, No tenderness Musculoskeletal: No tenderness Integumentary: No rashes Neurological: Normal speech, Normal tone, Normal affect Lymphatics: No axilla or inguinal lymphadenopathy - Studies Medications List Reviewed: Yes Assessment & Plan - Problems (Diagnosis) (1) Generalized weakness Current Visit: Yes Status: Acute (2) Hypokalemia Current Visit: Yes Status: Acute (3) Cancer related pain Current Visit: No Status: Acute (4) Dyspnea Current Visit: No Status: Acute Qualifiers: (5) Anemia Current Visit: No Status: Chronic Qualifiers: (6) Liposarcoma Current Visit: No Status: Chronic - Plan Plan: Continue with plan of care as mentioned below: 1. Monitor H&H; hemoglobin stable 2. Continue with potassium supplementation; potassium improved 3. Transfuse 2 units of packed red blood cells; no complications 4. Pain control 5. Physical therapy evaluation 6. shelter facility versus rehab placement 7. GI DVT prophylaxis - Advance Directives Does patient have a Living Will: Yes Does patient have a Durable POA for Healthcare: Yes - Code Status/Comfort Care Code Status: Full Code
--- NOTE | 2021-05-14 01:20 | P.PN ---
Date of Service: 05/12/21 Subjective Patient continues to improve. Awaiting for placement. Review of Systems 10-point ROS is otherwise unremarkable Physical Examination - Vital Signs Reviewed - Physical Exam General: Alert, In no apparent distress, Oriented x3 Respiratory: Clear to auscultation bilaterally, Normal air movement Cardiovascular: Regular rate/rhythm, Normal S1 S2 Gastrointestinal: Normal bowel sounds, No tenderness Neurological: Normal speech, Normal tone, Normal affect Lymphatics: No axilla or inguinal lymphadenopathy Assessment & Plan - Problems (Diagnosis) (1) Generalized weakness Current Visit: Yes Status: Acute (2) Hypokalemia Current Visit: Yes Status: Acute (3) Cancer related pain Current Visit: No Status: Acute (4) Dyspnea Current Visit: No Status: Acute (5) Anemia Current Visit: No Status: Chronic (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 Hemodynamics and H&H stable 2. Continue with potassium supplementation; potassium improved 3. Transfused 2 units of packed red blood cells; patient with no complications 4. Continue with pain control 5. Physical therapy evaluation appreciated 6. long-term facility versus rehab placement 7. GI DVT prophylaxis - Advance Directives Does patient have a Living Will: Yes Does patient have a Durable POA for Healthcare: Yes - Code Status/Comfort Care Code Status: Full Code
--- NOTE | 2021-05-14 01:22 | P.PN ---
Date of Service: 05/13/21 Subjective Patient continues to improve with no new complaints. Increased pain patch. Awaiting for [facility] facility placement. Supportive care. Patient may benefit from hospice care as patient has not been able to make appointments for arrangement for chemotherapy or radiation. Her prognosis is poor and she has been declining substantially over the last few months. 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 Hemodynamics and H&H stable; repeat labs in a.m. 2. Continue with amiloride 3. Monitor hemoglobin 4. Continue with pain control 5. Physical therapy evaluation appreciated 6. [facility] facility versus rehab placement 7. GI DVT prophylaxis - Advance Directives Does patient have a Living Will: Yes Does patient have a Durable POA for Healthcare: Yes - Code Status/Comfort Care Code Status: Full Code
[2021-05-14] MEDS: ALBUTEROL 2.5 MG/3 ML NEB SOL NEB SCH ×4 (02:00→20:00)
[2021-05-14] MEDS: IPRATROPIUM BROM 0.5MG/2.5ML NEB SCH ×4 (02:00→20:00)
[2021-05-14] MEDS: MORPHINE 4 MG/ML SYR IV PRN ×3 (03:39→16:05)
[2021-05-14] MEDS: NA CHLORIDE 0.9% 1,000 ML IV SCH ×2 (05:32→17:55)
[2021-05-14 06:31] LABS: Absolute Lymphocytes (CBC) 0.9 K/uL (0.7-4.9); Hematocrit 27.9 % (36.0-45.0); Lymphocytes % 14.3 % (15.3-44.8); MPV 7.4 fL (7.6-11.3); RBC Red Blood Cell Count 3.21 M/uL (3.86-4.86)
[2021-05-14 06:43] LABS: Potassium 3.6 mmol/L (3.5-5.1)
[2021-05-14] MEDS: DOCUSATE NA 100 MG CAP PO SCH (09:49)
[2021-05-14] MEDS: FUROSEMIDE 40 MG TABLET PO SCH (09:49)
[2021-05-14] MEDS: POTASSIUM CL SA 10 MEQ TAB PO SCH ×3 (09:49→20:47)
[2021-05-14] MEDS: AMILORIDE HCL 5 MG TABLET PO SCH ×2 (09:49→20:47)
[2021-05-14] MEDS: APIXABAN 5 MG TABLET PO SCH ×2 (09:49→20:47)
[2021-05-14] MEDS: GABAPENTIN 400 MG CAP PO SCH ×2 (09:50→20:47)
[2021-05-14] MEDS ORDERED: FENTANYL 75 MCG/PATCH TD SCH (10:00)
--- NOTE | 2021-05-14 12:48 | P.PN ---
Subjective Date of Service: 05/14/21 Chief Complaint: Hypokalemia and anemia Subjective: No new changes, No C/O voiced Physical Examination - Vital Signs Temperature: 97.2 F Blood Pressure: 133/70 Pulse: 92 Respirations: 18 Pulse Ox (%): 97 - Studies Medications List Reviewed: Yes Assessment And Plan Physician Review: Patient Assessed, Agree with Above Assessment and Plan Physician Review Additional Text: 05/14/21 12:47 - Physical Exam General: Alert, In no apparent distress, Oriented x3, middle-aged female Respiratory: Clear to auscultation bilaterally, Normal air movement Cardiovascular: Regular rate/rhythm, Normal S1 S2 Gastrointestinal: Normal bowel sounds, No tenderness Neurological: Normal speech, Normal tone, Normal affect 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 Assessment & Plan - Problems (Diagnosis) (1) Generalized weakness Current Visit: Yes Status: Acute (2) Hypokalemia Current Visit: Yes Status: Acute (3) Cancer related pain Current Visit: No Status: Acute (4) Dyspnea Current Visit: No Status: Acute (5) Anemia Current Visit: No Status: Chronic (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
[2021-05-15] MEDS: MORPHINE 4 MG/ML SYR IV PRN ×4 (00:09→18:42)
[2021-05-15] MEDS: IPRATROPIUM BROM 0.5MG/2.5ML NEB SCH ×4 (02:00→20:00)
[2021-05-15] MEDS: ALBUTEROL 2.5 MG/3 ML NEB SOL NEB SCH ×4 (02:00→20:00)
[2021-05-15] MEDS: PROMETHAZINE 25 MG TABLET PO PRN ×4 (02:04→20:40)
[2021-05-15] MEDS: HYDROMORPHONE HCL 2 MG/ML inj IV PRN ×5 (02:04→20:44)
[2021-05-15] MEDS: AMILORIDE HCL 5 MG TABLET PO SCH ×2 (08:48→20:41)
[2021-05-15] MEDS: DOCUSATE NA 100 MG CAP PO SCH (08:49)
[2021-05-15] MEDS: FUROSEMIDE 40 MG TABLET PO SCH (08:49)
[2021-05-15] MEDS: APIXABAN 5 MG TABLET PO SCH ×2 (08:49→20:42)
[2021-05-15] MEDS: POTASSIUM CL SA 10 MEQ TAB PO SCH ×3 (08:50→20:42)
[2021-05-15] MEDS: GABAPENTIN 400 MG CAP PO SCH ×2 (08:50→20:42)
[2021-05-15] MEDS: NA CHLORIDE 0.9% 1,000 ML IV SCH (08:52)
[2021-05-15 12:24] LABS: Absolute Lymphocytes (CBC) 0.6 K/uL (0.7-4.9); Hematocrit 27.3 % (36.0-45.0); Lymphocytes % 10.4 % (15.3-44.8); MPV 7.3 fL (7.6-11.3); RBC Red Blood Cell Count 3.17 M/uL (3.86-4.86)
[2021-05-15 12:39] LABS: Magnesium 1.8 mg/dL (1.8-2.4); Potassium 3.9 mmol/L (3.5-5.1)
[2021-05-15 13:08] LABS: Blood Morphology Comment NOTED (NOT SEEN); Platelet Estimate ADEQ; White Blood Cell Scan OK (OK)
--- NOTE | 2021-05-15 13:44 | P.PN ---
Subjective Date of Service: 05/15/21 Chief Complaint: Hypokalemia and anemia Subjective: No new changes (Patient continues to have pain. She is on multi- modal pain regimen including fentanyl patch.) Physical Examination - Vital Signs Temperature: 96.9 F Blood Pressure: 138/83 Pulse: 65 Respirations: 18 Pulse Ox (%): 100 - Physical Exam General: In no apparent distress, Cooperative HEENT: Atraumatic, Normocephalic Respiratory: Clear to auscultation bilaterally, Normal air movement Cardiovascular: Regular rate/rhythm, Normal S1 S2 Musculoskeletal: Swelling, Other (Bilateral lymphedema) Neurological: Normal speech, Normal affect - Studies Medications List Reviewed: Yes Assessment And Plan - Current Problems (Diagnosis) (1) Generalized weakness Current Visit: Yes Status: Acute (2) Hypokalemia Current Visit: Yes Status: Acute (3) Anemia due to acute blood loss Current Visit: No Status: Acute (4) Cancer related pain Current Visit: No Status: Acute (5) Liposarcoma Current Visit: No Status: Chronic (6) Sarcoma Current Visit: No Status: Chronic Physician Review: Patient Assessed, Agree with Above Assessment and Plan Physician Review Additional Text: 05/15/21 13:40 Assessment Patient is a 61 year old female with a known history of sarcoma, which is followed at [facility]. She was admitted with recurrent hypokalemia, which is now resolved. She mainly complaining of uncontrolled pain PLAN: Continue multi-modal pain regimen Patient can be discharged once she's been accepted. She is pending SNF placement Continue amiloride Serum potassium controlled PT while in-house GI DVT prophylaxis
[2021-05-16] MEDS: HYDROMORPHONE HCL 2 MG/ML inj IV PRN ×4 (01:56→14:42)
[2021-05-16] MEDS: IPRATROPIUM BROM 0.5MG/2.5ML NEB SCH ×3 (01:57→14:00)
[2021-05-16] MEDS: ALBUTEROL 2.5 MG/3 ML NEB SOL NEB SCH ×3 (01:57→14:00)
[2021-05-16] MEDS: PROMETHAZINE 25 MG TABLET PO PRN ×4 (01:58→14:42)
[2021-05-16] MEDS: NA CHLORIDE 0.9% 1,000 ML IV SCH ×2 (06:02→06:20)
[2021-05-16] MEDS: DOCUSATE NA 100 MG CAP PO SCH (10:20)
[2021-05-16] MEDS: POTASSIUM CL SA 10 MEQ TAB PO SCH ×2 (10:20→14:42)
[2021-05-16] MEDS: FUROSEMIDE 40 MG TABLET PO SCH (10:20)
[2021-05-16] MEDS: GABAPENTIN 400 MG CAP PO SCH (10:21)
[2021-05-16] MEDS: AMILORIDE HCL 5 MG TABLET PO SCH (10:21)
[2021-05-16] MEDS: APIXABAN 5 MG TABLET PO SCH (10:21)
--- NOTE | 2021-05-16 10:51 | P.DS ---
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 She was admitted with recurrent hypokalemia, which is now resolved. She has been having issues to pain throughout this hospitalization. Her current pain regimen controlled her symptoms. Vital Signs/Physical Exam: Temp Pulse Resp BP Pulse Ox 97 F 97 H 18 135/78 100 05/16/21 08:00 05/16/21 10:20 05/16/21 10:19 05/16/21 10:20 05/16/21 10:19 General: In no apparent distress, Cooperative HEENT: Atraumatic, Normocephalic Respiratory: Clear to auscultation bilaterally, Normal air movement Cardiovascular: Regular rate/rhythm, Normal S1 S2 Neurological: Normal speech, Normal affect Laboratory Data at Discharge: WBC 6.10 K/uL (4.3-10.9) 05/15/21 12:06 Hgb 8.8 g/dL (12.0-15.0) L 05/15/21 12:06 Hct 27.3 % (36.0-45.0) L 05/15/21 12:06 Plt Count 159 K/uL (152-406) 05/15/21 12:06 Sodium 142 mmol/L (136-145) 05/15/21 12:06 Potassium 3.9 mmol/L (3.5-5.1) 05/15/21 12:06 BUN 13 mg/dL (7-18) 05/15/21 12:06 Creatinine 1.22 mg/dL (0.55-1.3) 05/15/21 12:06 Glucose 94 mg/dL (74-106) 05/15/21 12:06 Phosphorus 2.8 mg/dL (2.5-4.9) 05/10/21 13:28 Magnesium 1.8 mg/dL (1.8-2.4) 05/15/21 12:06 Total Bilirubin 0.6 mg/dL (0.2-1.0) 05/12/21 08:12 AST 5 U/L (15-37) L 05/12/21 08:12 ALT < 6 U/L (12-78) L 05/12/21 08:12 Alkaline Phosphatase 75 U/L (45-117) 05/12/21 08:12 Home Medications: Gabapentin [Neurontin] 800 mg PO BID 12/07/20 Hydromorphone [Dilaudid*] 4 mg PO Q4HP PRN 12/07/20 Promethazine Tab [Phenergan*] 25 mg PO Q4H PRN 12/23/20 Docusate [Colace Cap*] 100 mg PO DAILY #30 cap 12/30/20 Apixaban [Eliquis] 5 mg PO BID tablet 01/12/21 Potassium Oral Tab [Klor-Con 10 mEq Tab*] 20 meq PO TID 02/13/21 Amiloride HCl [Midamor*] 5 mg PO BID #90 tablet 02/14/21 Furosemide [Lasix*] 40 mg PO DAILY #30 tab 02/15/21 fentaNYL [Fentanyl] 1 patch TOP SEECOM 05/10/21 Albuterol Neb [Proventil 0.083% Neb Soln] 2.5 mg NEB [id number] amp 05/16/21 Hydromorphone [Dilaudid*] 2 mg IV Q4H PRN vial 05/16/21 Ipratropium Neb [Atrovent*] 0.5 mg NEB [id number] amp 05/16/21 Pharmacy Consult 1 ea XX DAILYPRN PRN each 05/16/21 Followup: Unknown,U [Primary Care Provider] -
[2021-05-16 11:23] VITALS: O2SAT 100
[2021-05-16 12:30] VITALS: BP 129/67; TEMP 99.5
[2021-05-16] MEDS: MORPHINE 4 MG/ML SYR IV PRN (12:38)
== END 2021-05-16 17:15 | DRG 641 ==
LOC: ER 12:41 → ERHOLD 16:48 → 2ND 18:16
PROVIDERS: ADMIT Hospitalist; ATTEND Internal Medicine
PROC: 30233N1 Transfusion of Nonautologous Red Blood Cells into Peripheral Vein, Percutaneous Approach (ICD-10-PCS; principal; 2021-05-10)
DX: E87.6 Hypokalemia (principal); D62 Acute posthemorrhagic anemia; I10 Essential (primary) hypertension; G89.3 Neoplasm related pain (acute) (chronic); Z91.041 Radiographic dye allergy status; Z85.3 Personal history of malignant neoplasm of breast; Z90.710 Acquired absence of both cervix and uterus; Z90.13 Acquired absence of bilateral breasts and nipples; Z79.01 Long term (current) use of anticoagulants; Z79.899 Other long term (current) drug therapy; Z96.641 Presence of right artificial hip joint; Z60.2 Problems related to living alone; Z20.822 Contact with and (suspected) exposure to COVID-19
CPT/HCPCS: 36415; 36430; 72100; 72192; 80048; 80053; 80076; 83690; 83735; 84100; 85025; 86850; 86900; 86901; 94640; 96372; 96374; 96375; 97110; 97116; 97161; 97530; 99284; 99285; J1170; J2270; J2405; J3480; J7030; J7050; P9016; Q0169; U0003

== ENCOUNTER 2021-06-19 04:54 | Inpatient (IN) | payer OTHER ==
--- OUTSIDE RECORDS SUMMARY | 2021-06-19 05:05 | XMS REPORT | Continuity of Care Document ---
:1960 Author Organization [facility] t Address [address] [place] [address] Care Team Providers Name Role Phone KALINA LAWSON Primary Care Physician Unavailable Nile TEJADA Attending Clinician Unavailable SYSTEM, NOT IN Attending Clinician Unavailable Jasmina MUNIZ Attending Clinician Unavailable DURAN BRAY Attending Clinician Unavailable KAPIL Attending Clinician Unavailable BARBRA Attending Clinician Unavailable [...] Attending Clinician Isabelle Ramos MD Attending Clinician [phone] Lazaro LYNN Attending Clinician ANA PAULA [...] Expiration Date Vinny nava MEDICARE A B [id number] AETNA OPEN ACCESS [id number] 2017 HMO NAP 00:00:00 AARP MEDICARE [id number] 2020 COMPLETE CHOICE 00:00:00 PLAN 2 [facility] [id number] [address] [facility] - MEDICARE MGD 00:00:00 - Medical [facility] [id number] 2020-Present [employer] MEDICARE [id number] 2021 ADVANTAGE 00:00:00 MEDICARE PART A [id number] 2020 AND B 00:00:00 Problems Condition Condition [...] kes - itis itis 00:00: Medical 00 [place] Diabetes Diabetes Disease Active [facility] [...] Stop Date Source Natural father Lung cancer [facility] Natural mother Diabetes [facility] Social History Social Habit Start Date Stop Date Quantity Comments Source Sex Assigned At [facility] Tobacco use and 2017-11-18 2017-11-18 Never used [facility] Bret hendricks - exposure 00:00:00 00:00:00 Medical Center Alcohol intake 2017-11-18 2017-11-18 Current drinker HOMAR Rodriguez - 00:00:00 00:00:00 of alcohol [facility] (finding) Alcohol Comment 2017-10-06 2017-10-06 SOCIALLY HOMAR Diop - 00:00:00 00:00:00 Medical Center Smoking Status Start Date Stop Date Source Never smoker [facility] Medications Ordered Filled Start Stop [...] QD Take [address] [facility] [address] (FOLVITE) 1 6-07 10-24 tablet (1 Bret kes - MG [...] 30mg Take [address] (MS CONTIN) 6-23 07-23 tablet (30 L ukes - 30 MG [...] kg Systolic blood 2020-09-06 16:21:00 161 mm[Hg] [facility] Diastolic blood 2020-09-06 16:21:00 75 mm[Hg] [facility] rate 2020-09-06 16:21:00 87 /min [facility] Body temperature 2020-09-06 16:21:00 35.78 Lovely [facility] Respiratory rate 2020-09-06 16:21:00 18 /min [facility] Oxygen saturation in 2020-09-06 16:21:00 97 /min [facility] Arterial blood by Medical Ce nter Pulse oximetry Body weight 2020-09-06 06:00:00 141.658 kg [facility] BMI 2020-09-06 06:00:00 50.41 kg/m2 [facility] Body height 2020-08-20 18:00:00 167.6 cm [facility] Procedures Procedure Date / Time Performed Performing Clinician [facility] e CT CHEST WITH IV CONTRAST 2020-09-05 12:35:00 Vandana Tejada [facility] COMPREHENSIVE METABOLIC 2020-09-05 05:16:[address] [facility] 2D ECHO W/ DOPPLER 2020-09-05 01:05:41 Vandana Tejada [facility] (CW/PW/COLOR) [facility] SARS-COV2/RT-PCR ([facility] & 2020-09-03 21:48:00 Tricia Ramos [facility] - REF LABS) [facility] CBC W/PLT COUNT & AUTO 2020-09-03 06:17:00 Vandana Tejada [facility] I [facility] CBC (HEMOGRAM ONLY) 2020-09-02 04:36:00 Raegan, [facility] PROTHROMBIN TIME/INR 2020-09-02 04:36:00 [facility] CBC (HEMOGRAM ONLY) 2020-09-01 03:48:00 [facility] PROTHROMBIN TIME/INR 2020-09-01 03:48:00 [facility] US CORE BIOPSY 2020-08-31 18:48:00 Vandana Tejada [facility] TISSUE EXAM 2020-08-31 18:37:00 Vandana Tejada [facility] VITAMIN B12 AND FOLATE 2020-08-31 04:45:00 Vandana Tejada CH [facility] CBC (HEMOGRAM ONLY) 2020-08-31 04:45:00 [facility] PROTHROMBIN TIME/INR 2020-08-31 04:45:[address] [facility] CT ABDOMEN/PELVIS WITH IV 2020-08-30 10:28:00 [facility] CONTRAST [facility] CTA AAA AND RUNOFF 2020-08-30 10:28:00 [facility] BUN AND CREATININE 2020-08-30 05:17:[address] [facility] CBC (HEMOGRAM ONLY) 2020-08-30 05:17:00 [facility] PROTHROMBIN TIME/INR 2020-08-30 05:17:00 [facility] HC ARTERIAL DOPPLER LEG 2020-08-29 16:05:00 Gadicheraz, Tricia CH I [facility] UNI [facility] CBC (HEMOGRAM ONLY) 2020-08-29 12:50:00 [facility] HEPARIN ASSAY - LOW 2020-08-29 12:50:00 [facility], [facility] - MOLECULAR WEIGHT [facility] CBC (HEMOGRAM ONLY) 2020-08-29 05:03:00 Raegan, [facility] PROTHROMBIN TIME/INR 2020-08-29 05:03:00 [facility] BUN AND CREATININE 2020-08-28 16:37:00 [facility] - W/RATIO [facility] VENOUS DOPPLER LEG, LEFT 2020-08-28 12:43:00 [facility] CBC (HEMOGRAM ONLY) 2020-08-28 04:42:00 [facility]R 2020-08-28 04:42:00 [facility] SARS-COV2/RT-PCR ([facility] & 2020-08-27 18:10:00 [facility] - REF LABS) [facility] PROTHROMBIN TIME/INR 2020-08-27 12:22:00 [facility], [facility] CBC (HEMOGRAM ONLY) 2020-08-27 04:06:00 [facility] PROTHROMBIN TIME/INR 2020-08-26 11:47:00 [facility] CBC (HEMOGRAM ONLY) 2020-08-26 11:47:00 [facility] CBC (HEMOGRAM ONLY) 2020-08-26 06:00:00 [facility] PROTHROMBIN TIME/INR 2020-08-25 18:11:00 SunKinga [facility] CBC W/PLT COUNT & AUTO 2020-08-25 14:27:00 [facility] CBC (HEMOGRAM ONLY) 2020-08-25 06:58:00 [facility] APTT 2020-08-25 06:49:00 [facility] APTT 2020-08-24 22:45:00 [facility] 2020-08-24 12:42:00 [facility] BASIC METABOLIC PANEL (7) 2020-08-24 05:41:00 Boris [facility] CBC (HEMOGRAM ONLY) 2020-08-24 05:41:00 Hari Carlin [facility] APTT 2020-08-24 05:41:00 [facility] 2020-08-23 21:14:[address] [facility] CBC (HEMOGRAM ONLY) 2020-08-23 14:11:00 [facility] APTT 2020-08-23 14:11:00 [facility] VENOUS DOPPLER LEG, LEFT 2020-08-23 12:46:00 [facility] BASIC METABOLIC PANEL (7) 2020-08-23 04:08:00 Boris, [facility] CBC (HEMOGRAM ONLY) 2020-08-23 04:08:00 Hari Carlin [facility] BASIC METABOLIC PANEL (7) 2020-08-22 05:37:00 [facility] CBC (HEMOGRAM ONLY) 2020-08-22 05:37:00 Hari Carlin [facility] US EXTREMITY NON-VASCULAR 2020-08-21 14:30:00 Hari Carlin [facility] CBC (HEMOGRAM ONLY) 2020-08-21 05:50:00 Hari Carlin [facility] COMPREHENSIVE METABOLIC 2020-08-21 05:50:00 Hari Carlin [facility] PROTHROMBIN TIME/INR 2020-08-21 05:50:00 Hari Carlin I [facility] XR HIP 2 VIEWS LEFT 2020-08-20 18:25:00 Hari Carlin [facility] XR LUMBAR SPINE 2 OR 3 2020-08-20 18:20:00 Hari Carlin [facility] XR KNEE 3 VIEWS LEFT 2020-08-20 18:14:00 Hari Carlin [facility] CBC W/PLT COUNT & AUTO 2020-08-20 15:02:00 Hari Carlin [facility] COMPREHENSIVE METABOLIC 2020-08-20 15:02:00 Hari Carlin [facility] MAGNESIUM 2020-08-20 15:02:00 Hari Carlin [facility] PHOSPHORUS 2020-08-20 15:02:00 Hari Carlin [facility] LACTATE DEHYDROGENASE 2020-08-20 15:02:00 Hari Carlin [facility] (LDH) [facility] URIC ACID 2020-08-20 15:02:00 RaeganHari [facility] Plan of Care Planned Activity Planned [...] Medica l Center colon (procedure) [code = 847242549] Future Scheduled 2018-11-[address] [facility] - Test 00:00:00 malignant neoplasm of [facility] Center colon (procedure) [code = 917193441] Future Scheduled 2018-11-[address] [facility] - Test 00:00:00 malignant neoplasm of [facility] colon (procedure) [code = 735336482] Future Scheduled 2017-10-[address] Bret kes - Test 00:00:00 measurement Medical Center (procedure) [code = 26071451] Future Scheduled 2017-10-[address] [facility] kes - Test 00:00:00 measurement Medical Center (procedure) [code = 62180493] Future Scheduled 2017-10-[address] [facility] kes - Test 00:00:00 measurement Medical Center (procedure) [code = 65646933] Future Scheduled 2010 SHINGLES VACCINES (1 [facility]I [...] s - Test 00:00:00 (procedure) [code = [facility] Center 98938681] Future Scheduled [address] [facility] - Test 00:00:00 (procedure) [code = [facility] 83190755] Future Scheduled [address] - Test 00:00:00 (procedure) [code = [facility] 18076532] Future Scheduled [address] [facility] - Test 00:00:00 [facility] (procedure) [code = 577125371] Future Scheduled [address] [facility] - Test 00:00:00 [facility] cervix (procedure) [code = 156078315] Future Scheduled [address] [facility] - Test 00:00:00 [facility] cerv[facility] (procedure) [code = 417961553] Future Scheduled 1979 DTAP/TDAP/TD VACCINES CH I [...] 00:00:00 examination Medical Center (regime/therapy) [code = 161109530] Future Scheduled 1970 Urine screening [facility] - Test 00:00:00 protein (procedure) Medical Center [code = 238795415] Future Scheduled 1970 DIABETIC EYE EXAM [facility] - Test 00:00:00 [code = DIABETIC EYE Medical Center EXAM] Future Scheduled [address] [facility] - Test 00:00:00 examination Medical Center (regime/therapy) [code = 409306666] Future Scheduled 1970 Urine screening [facility] - Test 00:00:00 protein (procedure) Medical Center [code = 257749017] Future Scheduled [address] DIABETIC EYE EXAM [facility] - Test 00:00:00 [code = DIABETIC EYE Medical Center EXAM] Future Scheduled [address] [facility] - Test 00:00:00 examination Medical Center (regime/therapy) [code = 369394205] Future Scheduled 1970 Urine screening [facility] - Test 00:00:00 protein (procedure) Medical Center [code = 435117195] Future Scheduled [address] [facility] [...] Medica l Center breast (procedure) [code = 192711740] Future Scheduled [address] [facility] - Test 00:00:00 malignant neoplasm of [facility] breast (procedure) [code = 648159979] Future Scheduled [address] [facility] - Test 00:00:00 malignant neoplasm of [facility] breast (procedure) [code = 119398111] Encounters Start End Encounter Admission Attending Care Care Encounter Source Date/Time Date/Time Type Type Clinicians Facility Department ID 2020-12-24 Inpatient ER BLANCA, [facility] [id number] [facility] 00:09:17 VANDANA 2020-11-21 Outpatient SYSTEM, JUAN MARTINEZ [id number] 11:08:21 PROVIDER Holland o lashonda 2020-11-02 Inpatient EL CRISTY, JUAN MARTINEZ [id number] 23:20:41 GAURAV And erso R n 2020-11-02 Inpatient EL MUNIZ, JUAN MARTINEZ [id number] 23:20:37 SHREYASKUMA And erso R n 2020-10-28 [facility] [id number] [facility] 00:00:00 Encounter [facility] 2020-10-17 Outpatient SYSTEM, JUAN MARTINEZ [id number] 12:21:12 PROVIDER Holland o lashonda 2021-05-09 2021-05-09 Outpatient THEA BRAY MDA MDA [id number] 11:00:00 23:59:00 RONALD nixo lashonda 2021-05-09 2021-05-09 Outpatient EVA NELSON MDA, MDA [id number] 13:35:48 15:28:02 Holland o lashonda 2021-04-03 2021-04-24 Inpatient ER BARBRA, DARLENE MARTINEZ [facility] [id number] 15:10:00 12:50:00 Holland o lashonda 2021-04-23 2021-04-23 Inpatient EL BELÉN, JUAN MDA [id number] 04:19:54 04:42:38 BRENDAN Lino o lashonda 2021 2021 Inpatient EL MAYE, JUAN MDA [id number] 17:08:59 17:35:08 BIJU Lino o lashonda 2021-04-18 2021-04-18 Inpatient THEA MELISSA, MDA MDA [id number] 09:21:00 09:41:51 BRENDAN gallego 2021-04-17 2021-04-17 Inpatient DARLENE SHIN MDA MDA [id number] MD 03:37:16 03:55:45 Holland gallego 2021-04-15 2021-04-15 Inpatient DIONTE, MDA MDA [id number] 22:08:23 22:34:52 BOB gallego 2021-04-13 2021-04-13 Inpatient PRISCILLA, MDA MDA [id number] MD 08:40:41 09:10:01 BOB gallego 2021-04-11 2021-04-11 [facility] [id number] MD 02:08:42 02:31:26 BOB gallego 2021-04-09 2021-04-10 Inpatient PRISCILLA, MDA MDA [id number] 23:08:04 00:00:29 BOB gallego 2021-04-09 2021-04-09 Inpatient PRISCILLA, MDA MDA [id number] MD 17:32:06 18:10:07 BOB gallego 2021-04-08 2021-04-08 [facility] [id number] MD 18:04:44 18:36:32 BRETT Abarca 2021-04-08 2021-04-08 Inpatient REINIERLAMANCHND MDA MDA [id number] 15:56:48 17:31:59 BRETT Abarca 2021-04-08 2021-04-08 Inpatient REINIERLAMANCHND MDA MDA [id number] 15:56:44 17:31:57 BRETT Abarca 2021-04-06 2021-04-06 Inpatient THEA CHAVEZ, MDA MDA [id number] MD 13:57:21 14:18:48 USE gallego 2021-04-06 2021-04-06 Inpatient THEA VILLAVICENCIO, MDA MDA [id number] MD 11:21:56 12:02:57 BIJU gallego 2021-04-03 2021-04-03 Inpatient EL SCOTT, MDA MDA [id number] MD 22:23:50 22:40:30 SUE gallego 2021-04-03 2021-04-03 Outpatient EL MUNIZ, MDA MDA [id number] MD 14:49:10 15:17:14 GAURAV Ferreira derso R n 2021-03-06 2021-03-06 Outpatient EL NICK, MDA MDA [id number] 13:20:00 23:59:00 KRYSTA dupont n 2021-03-06 2021-03-06 Outpatient EL ASAF, MDA MDA [id number] 12:54:39 13:19:00 CLAUDIA gallego 2021-03-06 2021-03-06 Outpatient EL MUNIZ, MDA MDA [id number] MD 09:00:00 12:53:00 GAURAV Ferreira derso R n 2021-03-06 2021-03-06 Outpatient EL MUNIZ, MDA MDA [id number] 10:05:13 11:24:37 GAURAV Ferreira derso R n 2021-03-02 2021-03-02 Outpatient EL ASAF, MDA MDA [id number] 11:00:00 23:59:00 CLAUDIA gallego 2021-03-01 2021-03-01 Outpatient EL ASAF, MDA MDA [id number] MD 11:57:34 12:10:03 CLAUDIA gallego 2021-03-01 2021-03-01 Outpatient EL MUNIZ, MDA MDA [id number] 12:08:46 12:08:46 GAURAV Ferreira derso R n 2021-02-20 2021-02-20 Outpatient EL MUNIZ, MDA MDA [id number] 12:57:43 17:49:39 GAURAV Ferreira derso R n 2021-02-16 2021-02-16 Outpatient EL MUNIZ, MDA MDA [id number] MD 08:46:05 08:46:05 MAYDAUMA An derso R n 2021-02-16 2021-02-16 Outpatient EL MUNIZ, MDA MDA [id number] MD 08:46:01 08:46:01 GAURAV rosalesso R n 2021-02-14 2021-02-14 Outpatient EL NICK, MDA MDA [id number] 16:13:03 16:13:03 KRYSTA Boaz so n 2021-02-14 2021-02-14 Outpatient EL NICK, MDA MDA [id number] 16:11:50 16:11:50 KRYSTA Boaz so n 2020-10-28 2020-11-03 Inpatient UR MUNIZ, MDA Sarcoma [id number] MD 08:47:00 13:55:00 CLAYCHAS rosalesso R n 2020-11-03 2020-11-03 Inpatient EL MAYE, MDA MDA [id number] MD 08:41:05 09:10:15 BIJU gallego 2020-11-02 2020-11-02 Inpatient EL MUNIZ, MDA MDA [id number] MD 22:10:35 22:18:01 CLAYCHAS rosalesso R n 2020-11-02 2020-11-02 Inpatient EL MAYE, MDA MDA [id number] MD 17:03:33 19:31:59 BIJU singleton n 2020-11-02 2020-11-02 Inpatient EL MUNIZ, MDA MDA [id number] 08:16:22 08:26:03 CLAYCHAS rosalesso R n 2020-10-31 2020-10-31 Inpatient EL STEFANO, MDA MDA [id number] MD 15:19:32 21:47:10 BAL gallego 2020-10-30 2020-10-30 Inpatient EL MUNIZ, MDA MDA [id number] MD 04:31:13 04:49:40 GAURAV Hanna rosalesso R n 2020-10-29 2020-10-29 Inpatient EL STEFANO, MDA MDA [id number] MD 18:24:24 19:40:21 BAL gallego 2020-10-29 2020-10-29 Inpatient EL SCOTT, MDA MDA [id number] MD 18:24:28 19:36:56 SUE gallego 2020-10-29 2020-10-29 Inpatient EL SCOTT, MDA MDA [id number] MD 10:00:26 10:24:36 SUE gallego 2020-10-28 2020-10-28 Inpatient EL SCOTT, MDA MDA [id number] MD 22:30:59 22:52:26 SUE gallego 2020-10-28 2020-10-28 Emergency EL KATARINA, MDA MDA [id number] MD 10:57:00 11:46:41 BRENDAN gallego 2020-10-14 2020-10-23 Inpatient ER SCOTT, MDA Sarcoma [id number] MD 16:40:00 16:38:00 SUE gallego 2020-10-21 2020-10-21 Inpatient [facility], MDA MDA [id number] MD 18:46:01 19:27:32 BOB gallego 2020-10-21 2020-10-21 Inpatient [facility], MDA MDA [id number] MD 14:16:27 14:16:55 BOB Lino o lashonda 2020-10-20 2020-10-20 Inpatient [facility], MDA MDA [id number] 20:10:36 20:13:24 BOB Lino o lashonda 2020-10-17 2020-10-17 Inpatient MAYE, MDA MDA [id number] MD 15:00:32 15:42:49 BIJU gallego 2020-10-16 2020-10-16 Inpatient [facility], MDA MDA [id number] 09:18:38 09:49:47 BOB gallego 2020-10-15 2020-10-15 Inpatient [facility], MDA MDA [id number] MD 11:01:50 11:06:18 BOB Lino o lashonda 2020-10-14 2020-10-14 Emergency EL LEONOR, MDA MDA [id number] MD 19:53:40 20:54:56 ALEXYS gallego 2020-10-14 2020-10-14 Emergency EL STEVEN MARTINEZ MDA MDA [id number] MD 17:59:26 17:59:31 Holland gallego 2020-08-20 2020-09-06 [facility] ER Vandana Tejada [facility] [id number] [facility] 13:34:00 17:17:00 Encounter Hari Carlin [facility], [facility], [facility] Bryant Willis 2020-08-20 2020-08-20 Travel [facility] [id number] [facility] 00:00:00 00:00:00 [facility] Results Test Description Test Time Test Comments Results Result Comments Source Tissue Exam 2020-09-14 10:56:00 Test Item Value Reference Range Interpretation Comme nts Case Report (test code = 104) Surgical Pathology Report Case: [id number] Authorizing Provider: Vandana Tejada MD Collected: 08/31/2020 06:37 PM Ordering Location: [address] Received: 09/01/2020 08:13 AM Service Pathologist: Thien Radford MD Specimen: Groin, Left, left iliopsoas mass biopsy ADDENDUM (test code = 3381) p9vufVKkWLMbyFK2IqBqUAYnk6zvd4UrgSFifHY fQSdmoBBsldPqtp78zSJ7gM01DF5jQDJxSwO7MZ UeicF1Esy2LMAcYVCfiMNqS976u3hpv3vwpqYoe AK6uBwvKCVcWLQjWSnqOTSkYmHsEZ0yiE3dhMyv zB7joLHbrAUheQYpqUUeiUJkHWRwoeFkeq3qLJN yldEbfT8tzsVZFWYpQN0xtlV5nqA9MPZ4vXZanp GghDfcm9TsZsJkWOxevlI8ckKxKTHrc7YkyBo1F OXmq1AaQ9UoBP4zHDycqMTrgdGeguLuZNNbbgHr Gj9uBScxjoN7dP3cRAGhBEFpTDOrj26efeazMF0 RAWNryM9onNnpxOYuM0tmEFYqeUbhTVqUEZUxPE CZOXD0SLCxvsEvC5ARHPUpDLWax2liQhTyDGYtm xZhtY0aPMqjWjvyG9mxOdhjtCXkyqZlmKVmyKZy KEMmozztbppgJfGtuLBwFUN5nwN0PLNiMEnnRQV mfKFsSQArXVVcLD1cbYOdbQwlPATrzOqtWTHaWX CjtpOcDRAsg83nvRFyqQCvvNk8d1itIAMkMXT8e yXtUHHbMPGoOTHrDAMmpDQtQX7nUNAgFGVmvlPq mXAjNlASnBVwPUVnybDuno8grhHwSNrveXIjmpM fkFPkwFNycKr5s1SnTvEfvCj0ubBvUPNlLCKpzd CjTNdtv2C6ZESsnEidjrAakTYkCV2gONPtBNCxX nSdUPZnt1Zaxc3vmMBeRBTmqbFJyzSyFOmmJFE4 lKJlnhQ1iNWbDN9kUNYdRMMeRZFaj65faNOfkG6 xKKWhur2truI0DUGuc0bumgMfYHnyKLEwzc3yBI FtaX8vNiUfaRQweEjxVC48JcaiHHXpwAVcNDErt GJaQ0MxLXO1oQpnMPSrZJEgOrEivlRmTFRzWV7K HUJjLTTgf35vBLGeejAyf26crCe8ZCHki53rKJJ hGSIpQAIkCXQgUWKlbG9krSO7jHtySGVhtIidhg 0baFJwCKZhvyGXomVcFLJmeONnkE8mcdUdcNXaE NPiFRc3SFHdTkCFgL9fIYZkBN7jO0ymBKwmrint YXJ9 DIAGNOSIS (test code = 3220) b4brzRLvFBLjg5zwXLBobMZmThVmQzToQiUzHp p cdWMxIHtccnRmMVxlcGljOTIwMlxhbnNpXHNwbH QyV1XocvktVYunVH3nLW7leHcuoVKhlCLwDEJpW sWsu4ebv013oRVwp7toCUEYxnhgpJp5oOuyB41k a4N5LhvdK78xrCMkBMjimQBcpzmldnUaMQYZGsM bIKUWBDHCMHiHMP5RX60EXvFKPZBEDBPVTI6TM5 l1EFEnycAXYAnLWIrIKJGHUUahRmMCLVsIC64bU LZrhsPTYT2ESPTHQnGAUgNNKYOJNQdCWiNOBP4T OU9QLQxIBAICT0ULMB3EIZqTRK3YQnjtNOUbONC LLB3DMM0cBnNVP6UXMTCSTPMFBOcASd3cSVTxtj 39HPP5SnXjj8V5LZN3REJyZLKcu1dnCVLhpHIbO yUhFyKtTrQjCxndgHSdXHIsQhOlp0gtq613kNNp m0ilAMAcYwW4tLJbFATzqQDyB445UCCiZMdys5j ub7MdTXWvfXNwp9I4RHVHnhrysNr0oKapQ03uh9 I7QbliR6tjVBQeEAXrS7KiWY3mNRTdBtn3OEJ6O TL1FATlJGGaN8YiPS4oLZPkzLHlGZh6v3hxcAnu RLMhMAP7j4qhODpeztDwOR6agi3upAu3y9qxqhL bBXMzAWHqgJGJDCFlI8TrhFnmQj7kaXi3fWqxYy kqZAE6Lby4AJ3eit58xtm7yOusDZDidlaoAhT0Q BrwTDPlctuiPIc6MNlbZYUweUF8RIIjsBZiB7It XRNaRN2xykv5PEP9LDluPNUuCpP9FCIljQYpJDN zfIczCHldp914AVJ7GgJyZV7cW5Ndz5G0uX5esW LuLTZqyBOhGjLgQELhma3njGWaPIbvl4PhOQB8b zZ0fKHipPYeSHCoKmQ2YJzlGI5ytw71KNGlXUG9 wt4nhMOyzCslisYviAKmKZtuI1LrUERjh070AIF fJ4LwNIVsi6E4gsRnQsTsNSGjvIP1neP3GNPqZF 5woozsv0geFKplZVqiZZPzrxL6qmY3TUBkpPBpW 1EdyR0rPRVxIQ5oxmszy4xuSEA2UAypGCGnMTE2 HxMtTAGhs6Mexaz8TxIwb3OtzTUqSQvyB55yu02 4RWLiicDpI2lrkUBmtzvlbOLpsfwmXUoiuxF6EO EeNDmevesdKNLyWLqcH3tjQnRiPWEvdEqsKBbso 7UwLQErDHDxIfVxyLXnBEVzUuh3IPLwsFIsOCEj HxZtO8glbwetHxXNNIMfy6blE7vviCBQvCBbS6Z aBAmtcyUcGIouNZaiDVPbFWN1UH80SOokSBUjfq 19 CPT Code(s) (test code = 8957) b5lpkPCnBYYvfHH2MsTdHNMfc7tkf9JknDMb cGF xXTscaUXsuvRrqh05kYP0bQ76HQ2mJVVfXoG2HN IieoF9Nmt9COXdGDJzoSGrX217a3jlg7gzvlFjs KJ2lPjdTYXeNYAnXHssLDDbOmIrWIgtENUmHMj5 GvXsHLC3GWW1COy4QYKdtu0= CLINICAL HISTORY (test code = 3356) v1wmhEQdDSErhZD3CeBwVSXnx7ndl6Q sdHBncGF kRArwqYMaksNvff13tQN2cD22WL4yCGRrNeC5AU HyhsB4Imt5ACDgMTOlrPDsF148t1rsh3xywsMrq QZ4xSevQOFyTVFbNYgySEBwEyHiJIFipYEyxa9e taVlzFL2W6kfbA1uq86glvJiGDKtOLE4FiGebQQ 7ZjCcaPXpQGXiVXcuMRH0 SPECIMEN SOURCE (test code = 3377) p3xoePPuIKSqnDV3MmFbBGEyb1xyz7Kn dHBncGF nUWgtzDBsbcLick60sTK4aT55TU5yUWCfBmO4GI KhlqB1Sju8XYFtXYWruBCuV956i7fec9dkphQyg UP1cOwqVTJzTGOrTPedIPVlDyFsAZHlpFGgag7s la2qxAasjXSqECQsrMSdgF== GROSS DESCRIPTION (test code = 3366) n5ckfHLtTFUtkQQtNmMsNLMqKJCtd4 lcZGVmbGF dCqHeYdRuVfBsCojolKCvFMXzUbUvr8imm735mV Gsb6seHKJYigufjGd6c2cgNRNxTmB7lWWzMJwqM 4ylgySomJOeETVtZUe6jT51ACVgaZ4wdVRwHSxp djHoHzQ4CWjtAGOvBuV8CUCakKGiOQPhB5jrJWP aQSpcJOJcENkzsOLtJVU3vDhqe7F6sZApwARlhO wgVcPyOvAbNJNDl4DtGQv6tHeeK7FrKVJaWhY5i ZNcBHBnEPjvJOAiIOZtijT9dR24GKiqfdB4bAUb v8Tux26xq687nD3jtZDaVZO3HDHaEDYhdDXsORU kUNO0VETjbKAuE1c5ZbEuwNIcW7A7VzEkhTAhN2 Z9OhUbmLHnU8W3GgVuaAZzRRDenYMwSg2cjJYhz JVikq5lpd50UVR6x6IsvApzAKV6SZU6FoUyKh8u mYZfUKJaCJMnoPBvJJYrBT6uxLVbAMOanV2snvt nYULqYlGaztdkSAZleNsjpeFdPl0vpNvwCDK6AQ hyN2ysxZ8xXiH3IJqlI2xmpY0cGEl4DJvukDA3E TXwgW2kYG2uvjzvb6fhPtPhEO7dbcgmv3yvGsPa EB5rlbq1f0njJwFcIH1kaojbr1sfUtPcDTvtHTS mqvofLOBul5RqgharJETqi4CqH9CxnMawT62jwL ivD83pSKUvbGubbJ6bjUbobX7wQpVpOiWbRCpjE XJkXHBsYWluXGYxXGZzMjBcbGFuZzEwMzNcaGlj lJalFBrcVmJjMSIdCKxpK6qaLyYcHqTjINSYJqA RKACdsEJjPJMbicXwf6QhPWxhkrKaCACidPDqBO trnNklzBdhJQTifQsrinAhQ4D7whYtHF7eKXQhV DQeT5FiGTWbX03nPJUaaM1xYLQuCN9wMVLxau3w rfqpqJOpjKGpUX4uBFFtmsVcn3GwBG8xXM77hRW yzToiWFagANymx7orgEYoz12wvGR4qOTupAIjZ2 4tKBGzwgVtO6yzXeEoMaFlEY3cCQXmHYsfMSnus cm8kFVfhTJraXC0NSNjiX7vtM89gqOwvtYIYX0p sIgkNAaghY8dHEUaSNznCAKqK2QdtQ9vQF4GTuo jUGDlEROVP1EhE32exOAyeO== MICROSCOPIC DESCRIPTION (test code = x0yxxAMqYRBbpWH2EtHoXFKza1jqc3 BsdHBncGF 3378) hOZimaUYtelPcss44jLU4nM81AU2xURQdFlM2NF NgskN4Qzh7ROMaARDrtBZhC160l4hdn1wchvHtx FC4jDiuMFRiGPDoGNrqQYJhFrYnMZWZMt4ESBVA XHBhcn0= SPECIAL STUDIES (test code = 3376) h9tkvFUbIBEoiYK2XtOzDFWch1gsr3Ra dHBncGF zFShfnXIjohGqsx87zKE4vG41YI8rYUJpOhQ9LN XzoxK6Yku5QQLvJZFwjHYoR571KRMnJLYsxVjye ga7gI64URWgrV6gnSGwDNj4ZAHprlVtiVwizO1f IkCiMqXqPdDBhWKkvX87AZZhjkS2SRDof37fx2E waOsykuKcCKTcSHtjY2k7TYEnSXJnPNV4r0Fme3 QccO2bqM8lcPtmvA9vjJHqvNG2qrxgi0Nqi3ThD 2jiyUDcvODhgeRuHEFvneCNFQ3SAvOSSX9vM6HH ESTKDhfkCcCmJOtdKJYJCXiNIIEELSU3AIAOFTN wWWEBSZwfHKAmR56xnPUykVAJlZfdBBAxUInbwK rqNMN3GLWCrr7qx0EbQGXtqu04kkYsx1NdbTd0B JJju784uu0jccE8ZWNtRIH3WUk5GNUzFOTgjO2l WnB9zCLwDALyROQ3WTB3NUGjc6M3LE4pEXVdQEL iMJPvcnEar5ydz7nfDPGsNKK4xqQfnK0eI5ZzVS Wva9YzrOtiEOLhmFgrqfKrVQSjrYGuOTZkfJ48N DOckOGrfMLsNFYoNJN0IBvhmZ1oElJKxcMyar7k hRBgu1DyoQm1IPBqldJmnxVsRMMknrLvJ04hxRF ooQZqp9sywtJdotNgxMEbrFNvUIDaQHM9HFq2KK SyUVumWQNiRPzbSQTrKE7mbW5rpCgseY9xlGZaf OK5vhoevWZflB5jP9RiLWBvh8Ybdltru5CuRHPr gaQcem7iZNIxiOAJJTaow5XvQ0UdKEy5x0WnkVm cFXuzIRl3ZqYwSYTgeQScwKUHFF67CCGzWVUdjU dpuM8hdZPATOKrjhW9k3X5XOwdAYPgUFo3ENwyg iWjLFMtiG1jJBMjZE0eGIh3oaQzJOOid2TfKF1h EXBvtIRxAXK2WGAcv8WfE0Acj1IjOQYsRRSagw7 nteSeDzRQbUEeSUPapj91HAPtCG7nZ4unZAUnKE CtnrHbbXWdj6WwSTSfmWJ0oBVlBG3UQcYHl26pD TWtSCAInxOyWSJdwIbdgSB4qbC3gQ0dLzBEmNKq EtGYQYftkrXyMAFckz8goeUtGIKvMTLih7GmdNZ joCVxouMvJ2Ouq4XwDWIcah43EKdieGUivo60LO 5cS8Urx5TovC3aAQxpHDTad3HwvQZobGBpYDJjo 1ShR8lvxnfuUItvhVHrhV6vYPRmKJq8TELkn1Xe QZRxt6CgCoEzcaTrFZVeAHPsKTKagS64JQJ6vJk gwQkucgAfTA1eGSBfttOiSALfWPMeoK0zGKgoli MqTMXyqyC0s6G8MTdxVMDnppInKdihVVW4mtDiw eD1mBYaP7vjhtflOIiiPPZan4EokL1qmQCQqSCw a3WudRHanDALwHIsJQ1epcYlZF8jFZD8RXmpXLV WEROdQLwqACWfFXU7KAoyAtjtIZW8xmHjPKJlf3 XoUSxuK6eeS61rjAxssDh9nADblGhheDBwbPIsB MXmpjH4f0O3YNKmm6HusezbBOHihe7= Gross assessment was performed at (test [facility] enter, code = 2777) Department of Pathology, [address] [place] [id number], Technical component was performed at [facility] er, (test code = 2778) Department of Pathology, [address] [place] [id number], Professional component was performed at [facility] enter, (test code = 2779) Department of Pathology, [address] [place] [address], [facility] [id number] 10:56:00 Test Item Value Reference Range Interpretation Comments Case Report (test code Surgical Pathology = 104) Report Case: [id number] Authorizing Provider: Vandana Tejada MD Collected: 08/31/2020 06:37 PM Ordering Location: [address] Received: 09/01/2020 08:13 AM Service Pathologist: Thien Radford MD Specimen: Groin, Left, left iliopsoas mass biopsy ADDENDUM (test code = [id number] 3381) Ari7jhs9CiqPZlzAYpYJmp sVVvbpHgzk65uAV8aJ66NC 7oNEJlLoH1LNDrnrB8Pna0 FMNtDFEdtPGiS872a8dvx1 bwatEazKX3tEtyEPHdXMVm NHmdQBUmMrFmCJ0ppB3cyI xowY2kuUTjwXVmtXWkjNEu pWYjRSKlgxWavw8mAARjgv LscL0yqqDZSNTfGW9oimQ7 nbM8EKG9bYMisfVnlRktm5 IeJqLxWGulelP1lhSmMCLt w6OkwKb9ZMBjh5JoS8BeTR 4gVGhleSBhcmUgbmVnYXRp tuEpTo0qNDudljQ9gH8bUL InKMUcRDLav95yrpmgEK9X ZZEcmM5ctYmraEMwG6cdOG FjdGluIChTTUEpLCBNVUM0 SHFljvRfJ4FMJKKcQRBli7 hrXgFvRQJjehMuhU6lPUry IoqeZ8juCzlmpJNygwTwgV FibGUsIHJhbmdpbmcgZnJv fXWcCKG3kkT4ONSzUFanJC PpwWVtRPZgOIHaOS1weJBa dGljIGNlbGxzIHByZXNlbn McCTGka03avMGkiXYmpZl1 a6ybUVJcNNI7znGiBBDgSM BmRYOyKSLosPHfCO4uQDAa ZWQgbnVjbGVpLiBUaGVyZS RfpfOgeo4bkvRzCRjnfHCt fpDdaYAhcJPyeKn9c4NvWk CiiTv2cvOhNLUnHLFyqnEt NQpdt6H4RAYzaInqcdQzkU MmHE4zPPVnYLYmFwRtLEOm x4Nkhy0orKEoPVAipnURxo CmFLeyWQV9tBJubwA4bFEc MC2cZVCgMFDrZSWve22jnU ZemU5dZGSbrm8ktkP7IPWa s5govcGtEVhfYKJjwp7hYT YlpN6kCpRbdFEfnJawHA05 LlxwYXJccGFyIFRoaXMgY2 ElFIF3qHksGNIiALIwGnIk egNgZUVpIB6ODHTmKESiv0 7lUPVrdwUkk53jcUg6UYKt n63dHBFuIIIdUFOhCVZrHM WxsS5ijVJ2aWoqDHWjvVvg ln5faJWmRMAnwrZQjgWqGY XisYZdhJ1cydCvpPVyJCJf EHq1EFBsNfJPaP4ePLBpIX 3rK1lbDXbzqwxyGWF5 DIAGNOSIS (test code = k6oslKRcCMGmu6oqEXZqyE 3220) FuZzEwMzNcZnRuYmpcdWMx IHtccnRmMVxlcGljOTIwMl ixipFtJDVnzGVrL1Utpgye HKlnEX9zFH1qgPpixZHwoS QtZJXrQcLue2los418qHOg d1kyQBHPczubqOt3oVzaX5 8bt5M0NdhuW29jhOGdINmm bGFpblxmczIwIFBBUlQgQS YZIFXFHKnJJT5QG45XEsPD LFOSBIEFSB3CP6v4LQEphv BTUElORExFIENFTEwgTkVP SAgZD89aOMAynzKDOY0SWJ BJTlRFUlBSRVRBVElPTiBQ DQ9FOT5QBPfRLKVQS0OUYF 5IHXgTOP9KWkelMPOlQVAL EB7ZPK9cAnGFT1FHETMPAX KAMBnRHj6eUXHesu53LGW6 RlEwu8Z9UEA7FFHzYGPoh3 lcZGVmbGFuZzEwMzNcZnRu OrfwePOnSODuTpSsh5rlb8 62pTUzm9ctFOPeRnG0kDMl RTLqgMFcC363KLEiCGlxv9 cqs4ZmRNDvhXJkn5Q6SXXZ tzudlKo1jErgB72gr2H9Il tnZ2ucPMWtEOYfD1LeIG3j FPNcOib5UVS4EGU3TRRcOS YxV7QsWC8qLPUunQRlISl9 c0prhJnaFTDiGNK1e5vxMZ hbmkEuWT3btm0wpBo4o9se czEgRGVmYXVsdCBQYXJhZ3 LccSzcFo3nrOc0bRohXeqe DGR1Wvu3MD5mqe19uex5xR okPVOjcwijQiE7HAbwYQRi mesuDDb6TBjdACIniMK4CP SlrIKtU3YyQESnKB8wulq3 TJD8SCgxNXTfVeP9WKYeqE PqRSMgxUaxQBjjl032AZM4 IxQcSF3vG8Gjm9T4mE6tqE YiYDNtdOBxWhKeYGXhjg5r nJAtQIhhu2AeUMF2pdF2jK WbfYEyXNWiTrE9WBfqRT4x bs71BMNgTIO7dt6qfFBmzR odxyKccWUmTTktX4PqIXUc h373KMPbJ4TcNKKht1U5tq ZbLtWqPJEeyZW4clH4SJWs SI1fbcjdp0hgKLgjOHupTY ZavyG0pjT3XAXcbQAwJ3Jx pV1xSKVhBG1qdbwpu9fwEW I6OHarFNNvUOP6KgOuGOOn l3Unewu1UbDjc6ZqkJWrTB jtU34un075OBMritFcP3zf bGFpblxwbGFpblxmMFxmcz R3HWJjWGcyulfiETPmVPsa L4ctUeOuSQAfmKsiUWsjv8 NoXGYxXGZzMjJcdGFiXHRh Aws7RRWopDHfGFTiJgAwQ9 evoaomEoGLOAYyz5lwV7rt bBAGzBJfF4YsMCefwkVwXF gnFYbnSLWcRNX6HP51MBee ZECkoo13 CPT Code(s) (test code t9tdrWGvXQRhlPF0DmYhUL = 3357) Glw3bzd7IzeRXfxGJxASch cHFgwdJadb72eGC7rB81XH 3oSLPbSkA3ATCqfpA1Fdm0 GVRnDUXqxTDjV756k7zvx9 btxuQxjID7eYpnUBAjETQp YWluXGZzMjAgODgzMDUsID h6HbDvEBY1SIX6BEi2BWYj cn0= CLINICAL HISTORY (test b3kmbKOqOUGqeZI7CyUgPX code = 3356) Fds1mwy7GjzAVnmJPxWMgp yYSaolPajk83oYG8rN26KG 0sHPOdZsS0UWVrlaK9Kio7 HXAuDINfdDYaC113y4ppk9 rboxQvbCH5rMyjLYEeOCRk YWluXGZzMjAgTGVmdCBn 4fgxOwmCZ3U0tavA3pt36e bdUaXQIsILS3SbGdxEQ9Wi EgeCAyIGNtIFxwYXJ9 SPECIMEN SOURCE (test c6bgrQRmUJGmeBR7WfRvCE code = 3377) Enf8xlv7GnrHUpwATtBFbb cBIackNosl66rRR7fL58NW 2vAFAwUcE5GEPphsX7Cwt4 XENjZLXkwPRwD060k6ati2 vqkaTnrNC6qXgaXVWvGDVi YWluXGZzMjAgTGVmdCBn 8jhj9rrBpviSYnFKKxlTZa fQ== GROSS DESCRIPTION (test y7jlpIAoPSVhcBSnRoHjOL code = 3366) EsAUJvb1vbNVTdaZQyOnBg MzNcZnRuYmpcdWMxXGRlZm Dmv5glj811aBJxu7nlYAYA mpapbMj1i2lpBSNuEkH8oX QaDKpqV3lceoXulHZuGHTz WSu9kA10CKKhkC5xcTHlNY cgpfPqYiF8SJwnNQBqGqG1 BDJhuSSvIKCxX8ksSHVwCE ruGBUbEIzipFAdAZA5cXav s5B3hHLcxSGekUspHrEuWf BgVTKNm6VeHXp3aYhwM8Jx HGOnKsW9eILpYDIqGPlzCJ QvDRImugE2eP57MKktweL8 nITdr8Mxq16fq316yK4cvJ TlFJQ9DQFxSLGjyKMuAFEg LNZ4WWAitKVkG2t5SkBttR SoI9F0CpKvwJIwV8W6VhQd fNSlS6A1ZgCswAMlSRBhpU XoLw2keBYbnLQamz3ujc03 HKC5b4UvmUtxCKW2BWY5Ru VfEo9grTRkSEBsCXOpfOAm ZZRdJJ7fdEDvBQKzmK4jmd xjXHBnYnJkcmhlYWRccGdi rbJzWt7syVhmCBY3JZesG3 srxR6mBlM3MBqsX1wlaZ4h FFw0XGdgzSF6HEBsmN0nFJ 6vaqefg2rtNzZxRS9zjoge g5soEgMfUV6ovrk9d5csNa PhQR4vrefbb1xfWqAePYxi KOWlkcdlICBtq5ItkybqDT Oeu8EjV4UowHyaY04szZec K00hIEWniShliC9boMssvF 5cZjBcZnMyNFxwYXJkXHBs YWluXGYxXGZzMjBcbGFuZz EwMzNcaGljaFxmMVxkYmNo ATLrJNamH9ozHpPhOeKsWP BBLiBSZWNlaXZlZCBpbiBm k9ClTMflnxXrIVGovCGwEJ dpdGggdGhlIHBhdGllbnRc C7G8zwZxHP3dRYOqONAxQ0 NcFNHeK47hQRKxbW6vDCBs OZ8rQOEyfu7jxxjsvWWyjB JhPE6iDDSjzxIvn2RhLI7k XS72jCZirVuiIPcgUQolf0 ulvSQaj70dtZY6xNUqiESr J76mSQHykmUjU1diEpAkXl HqQP9iHQMgWHthJKoctjd4 vAIztNWoqCO1IMVhvJ3rxX 83maPlvcJLSD7efLbeSRnv gD2eHLEnPUwhSLGoP1WphL 5lRQ4TJisuTEDtQZOVE6Lf T06rfCJuhE== MICROSCOPIC DESCRIPTION k5lmeXFcIILslEX7EhAaZT (test code = 3371) Ahp0ytj9JkpZHyuSYoZJnc uBIbowQslw04jWP8kI76DK 4hIRUqAbG7SKRwtbD6Rar2 IASxPGMdpRRdV646i7rgk3 chiuFxkCU0fFvmDGVqETGr DBzgURHwUnUnYMPPCy3FCN VEXHBhcn0= SPECIAL STUDIES (test v6vomKWgFKWusOT7NsWdFT code = 3376) Neb4qxe3UamQLdfYVzZWxk zJOulhMzgq21qTJ3tY84YX 1rJXOvSiV4VTSmjkK3Pzk7 JKYhKNBbqSGeW210HPEyHJ KooHomdvy1kJ75HQRqpH8l wTEkHXg7JFGalzPkzJxqkO 4ePjTsYsDnMwRQhUVfxJ23 CEEykyC6GMSjw64et8LhcX fjjfRtOXNuNSrdC2e1WUFl RDRoYUZ7r5Zvn2ZrgR4xcV 1ajEfzfH8noTEprOW1xhyj v9Sxi7KvD0hshRXlmSQwce QoDPYuvjBZTY9NVdNLRD5w S9JKUODAIzxmMuKrORbzLD QBSSzWYOTDYML0AYFAQDFa ZWCUGIdiGEQoW22dtKHucR BTbGlkZXMgRXhhbWluZWQ6 KJOIan3tp3KuNKMrpc89ep Nuq1OdgYl4IMLdp059bc6x qlH3HHPzMED9DQb3JXZpXU VxfU6kUlH6iHBvBGWyZMZ0 OWA3CVGad1W2RA3bASJjUG UqOOPghtBok5ait0xnJOIs TFH3wpVnuB8fZ0EoJNVdn0 YgdGhlIHBhdGllbnRzIHNh zQGfQVEwfJ94PRJvgGHmqS RtRJJtDOW7ERhyyD8yXjGP xhNrwj0uaLJoo2EalJi9DX QlvpBxauZpGPIwamEsF03c vMSnoOZzo8gkdoYtvdPzkP BwrIXiBMVeKKA1BIo6ZZFm FGsvSYXaZQxoKQSqJL0wqS 8icShdwJ9fgVDdfDJ0rycv xBZuuE4pH3BpMYQsm2Akct qnu3HeYLFchmHggd9xFXRu iWAAQCpif8WbW7IuTPo7z1 SyxTtlSCdpJVg0JrSnXOCr fYPtzNSZLU35HJTbICLfqV ogeV8yoWSOLAXhukO1k6T7 PSwgSAHcRTo1PLjphfFvNI QgrB4cPHIqIT5qNLv5umWf LRIsu3WkWX3zWJNenRAzDO T3URUlm3WhJ2Sbp1NiTYGi UZEnuc4wysJgTuKFrZUlWN Abtz26WIMoBK4aY0bfRPXd HAZgtgXlvSBql2IrVPHlkF S1dDKmRN1BOdDTd31qXQPs TGRRvzCfBXZreBrpwZY1xp F2wC4jYgNIsVPuCqKPMFlb wqSsSCPjil0cfyRcIEXiIY Vef8EkeFFznHFgjvWfE5Tc z3AsVEGlwr49HFmlvSUqll 59DX9vF1Pzy1TdzN3nPKzr CFWfa5DtbTUzjSDgNEKjn0 NyX1jjkqzaNYzolZWwzE9j PLYrVDu4CJRre0VhDLOvz0 QgYmUgcmVnYXJkZWQgYXMg sJ31PPX7jNkjoLpygpNtVK 8iMRWoeyKjRRPxJZWfjD5v VZjutnLvOWLbboV3q7V4SW djBNPhdeDzWjerUIK0nyHl ryB6qMPrK2dswgniKJbpTP Kfs4EqlG5lwLIZwBMuh0Po oVNhpLVTvRHbEC0nsxCjNB 8pFYT7YPkaMLVRKDYyXUnw RJVjTZS8OCtfQorsXTA2cn FvOUDlo5UaBCryY7uqM46l yZiwnYo7yYTawQisbONbkP DmLDDykmS1r9Q6QZUpg2Kw bmcuXHBhcn0= Gross assessment was [facility] performed at ([facility], = 2777) Department of Pathology, [address] [place] [id number], Technical component was [facility] performed at ([facility], = 2778) Department of Pathology, [address] [place] [address], Professional component [facility] was performed at ([facility], code = 2779) Department of Pathology, [address] [place] [address], [id number] 10:56:00 Test Item Value Reference Range Interpretation Comments Case Report (test code Surgical Pathology = 104) Report Case: [id number] Authorizing Provider: Vandana Tejada MD Collected: 08/31/2020 06:37 PM Ordering Location: [address] Received: 09/01/2020 08:13 AM Service Pathologist: Thien Radford MD Specimen: Groin, Left, left iliopsoas mass biopsy ADDENDUM (test code = [id number] 3381) Lut0mfd5BggZHczWJfDPmj pXBaqtYcyh79yXW1bK29IQ 5gPAPkRzH1QTJurxJ8War9 JJBtGIIzuBSoK184i8cfi8 bvznIqvBS8tNeoQGJnYXKv WEwoBUIcDwBqVX9dnB0amY fddZ3qwPXqlOBouOWxbVPh fIGnGFMicyTmdf6dXCTexz GjkV9uicGORUJcDF9gqzK0 azP7DPJ8bHExuqGuiWcln1 CyJvBnIQoqviF7wgMtPYZr b5RkiZg8RCTih3QvE6HyJX 4gVGhleSBhcmUgbmVnYXRp rtFmCv3cNPuycuQ2qC9sGM VvPPNfCUFqx93lcrwwWV6A KQEceS5kcKstbHVoL3zlTF FjdGluIChTTUEpLCBNVUM0 UAJxxaFpH8RLPGIuQOGmb9 wmObVqFNVnojKwtP6wUDjd CgrgH3vwHigvxZAttnUfnS FibGUsIHJhbmdpbmcgZnJv rAJlTOC1abU6KKDuBQcuQJ YpiQXrVSVmYRWpIM9ofRGg dGljIGNlbGxzIHByZXNlbn GoCRWhw72wwJDbnVGogMc4 p2xgJNMkJLF9fpJvPJXzZZ StCCOaBDUjvKWtIT5kFNZd ZWQgbnVjbGVpLiBUaGVyZS UsvpBjxg6jcxUaPVyxoDJb paNdeCVeaDAacOz1w5EqCf EmgOr0txDiNYRdQAFwncVr IZupr9P4QEYdmIlqaeSkxM RgMD1yFQGlZQJmAzWcHIFm t0Rzks5foITzMNCzuuHMxf FoAKorARD2hPKatnA4kRLb PC2vXOSgVKYoZUOws07sjX IxsG1gNVCqtq8wffF6VNFe g4lglpMkUZrtJKKggr7pLL PdgS7eOfPgbPJmkIjxMQ71 LlxwYXJccGFyIFRoaXMgY2 SnBOU3pFkpBKTiASWmArAp xzXjLANvXI7XXAKmNTKeg9 8gMTXpojSmv54krPp9HTUj b92kAAHbIITsSSMxMHFuNF QzyN5zxWM8qTheDSJdbStr pg4ogSYgXGCdnfHUtxAdAT XanGRytV1awlOpdGJzPYJm NXa7TMHlIzCNsU3pLQUxOM 4yJ3dyQJhtntpdRXE0 DIAGNOSIS (test code = p4agyEHiKBYpc2keUTZxnS 3220) FuZzEwMzNcZnRuYmpcdWMx IHtccnRmMVxlcGljOTIwMl rwbrJoBWBzhNApQ5Zsocdd EEuyYQ1mMX9vsIqpuUDfrA DgZVUyAnRef1nbo130rGHy x7trXQGJfxctfCb0uJcoF6 4ju1A5BtcaX55fyLImTImc bGFpblxmczIwIFBBUlQgQS UFSHSAQKyCGL6AB82WZyOT VSZCLKFEQP2LJ6b6DGKxyg BTUElORExFIENFTEwgTkVP JZrID75rOAHssaAUVE3UXN BJTlRFUlBSRVRBVElPTiBQ ZF5NYN4KOEkBIHCBV7PZCJ 1UKUwGFZ6INpgtVSSpRSMY AA0VZC5rMeQZC3EZCCDXCB SXICdJIx1bXZYwvz67ZOK7 PcLmt3D9DIH5IHIqSPZox5 lcZGVmbGFuZzEwMzNcZnRu FpwbpZYgKXXkLoKmw7eke7 67dHSrs5ntDHZqKgH5gOQc RCQndCWnO936JAIhPGyjm9 rap1KhPUSphPIts9N8QKWE rumefXk0sRtsG33uz8W1Vg kaE7ioCUBqRMEhR3XyXZ4s PUQrAah8DWZ1ODV3SSHhVP NmL3OrIO4bULMxiOLjOAu3 v3vmrOqtATTmNMF2y5xvFO ryusNfZJ6erp3qgGm4u4ar czEgRGVmYXVsdCBQYXJhZ3 VmiWohLw7hzNu0tIvfNcnw WTZ2Cen9ZT7qog62roh5mI aoJPVxdpowCkW6XNnfNPNa boqyKZo6FDseJIQcoES8QO GysTWtQ3GpUGKkJB8czhp6 XLM2KSqxOTFvKbH3WPQdyQ DkUEPduPmrSCfid346KNZ2 QaMpTT0bY7Vtm0H4aO9hbL AmOWReoVOkMuSjYTFoee2t tDNmATtqw8NgYQZ0heH5wJ IqrWPyBOCaOkQ7OYeaLR4g mr61TGZfIXQ6kz2jsKRdpA ibsbLflZPmRSwmO3TwCZOr x769MGKoZ4PuPDQmc0Z3lq CtAdJmAFJnhQF7tsP9QUEv MV9hodvfo9jrZBieTFizCI XygkA8vjU8JLZbhZYyE5Lc vQ3oJXClPW0mpajki6lqIE U9MJebLWUwXLR0CyAhQTXt q4Znlcl3ErTkf4GhgQNsOS xxW68ij806DEWmwsZxH7sx bGFpblxwbGFpblxmMFxmcz G5VQSzMXljnltrALLyJJmq O5rlOnFjHHTktTmsQWrzl7 NoXGYxXGZzMjJcdGFiXHRh Npl2WUSahURsTLAyFwZdA9 pxwrtlCrMORSRef9brK2yh hZIUzDHjY5AtNYsewxBgVM cdJDggOCNkTBD9YJ56CMjz QFFxkp05 CPT Code(s) (test code r5khvUZeCVDizOB0ViSuRU = 3359) Ckk6puw3OeyUNiyBUjZYyj xGAgufPnsp14aPM5lY70DB 4gHLDqGcG3DWFpuzT3Stj4 SQKjFXGfhSNxS140t1ijv7 uayvJklWL7sVljOWDbIWHw YWluXGZzMjAgODgzMDUsID z1MvPbJHH5JBQ4KIe6MDOm cn0= CLINICAL HISTORY (test z1ywoVGoUCYojDV0RiFlMW code = 3356) Vux9iyb6NobZIwwRToCYhi xBXqmcEkfs08hNZ4cH31FM 3oZZRgSwF6USGvafV2Mhm4 DLEzADNrtTCjX441q5uvz9 skooHtoSF3pImnSZKmSEZo YWluXGZzMjAgTGVmdCBncm 1ztcHlyGX0W6zwuX1nt16m oiHlKOYaKRG7FiLikNJ6Hr EgeCAyIGNtIFxwYXJ9 SPECIMEN SOURCE (test z6uxhFWtYYJmsVZ2ZtUlSO code = 3377) Tvg2lhs3LexEDjrYHmYMwu lWMzonYbsn23mJY0uM15HE 3uINYzWbQ9AWGoopD1Hcl5 MKLjVVTnsBHfB209a0rml7 tdivIliHD7uIrsPNXrEDAw YWluXGZzMjAgTGVmdCBncm 3qyk1qxFeeqTPlJQMkpQFi fQ== GROSS DESCRIPTION (test x7zuiKGeDISfcSZwTkVhGD code = 3366) CyHQVsf6fbFYXcsXCgBaLx MzNcZnRuYmpcdWMxXGRlZm Ngd6xky128tNQce6roHBXL vxjujIk5q5jjFLUdXeS8rR XdOKyoH2muleGjnZKtRCIr IUp2aU73BHIvcK3efWHbSG pmpeKkWhT3LNxdMIXsPfP5 VINvdGPgJUKsV9mvGWMdUV kfAWHhIEstyGBdYSJ3wWik h8L4tZQvvXAezBqsCoEfTv YqZZUMz4XdWZc3oScsP8Fz GEZlTcI5jEMwBDUmSEdsEB MiBVWgivK7aQ88WTantgD1 bVJrn5Dsa52io655vD4ydA PhJTK7FPHkZPUxpNYxSHNs QII4FYMefVBnL2j4MbJdbJ IwV0C9XdOlmOJtT1W1FrBs mUIdL2L8MzRrnOWsNUVqvZ GcOs9hbMMajYLkfm4pmu09 CAL3f7JziCsbCXQ9CCD5Jr BjYz9biCDvHSYwKSZvwBDx PCKwKQ4fnLFmRQIqaM3pam xjXHBnYnJkcmhlYWRccGdi xqIhPw0prNggOKY1WClbP0 lerM0dYjI0HNpvB4vayN5s SJa4WWritJE9RLQslO6tAT 1umkcdu0fjRtXdNN8gazhp g7yuKjRdCW5eugt4i5sxXi AzYL6bsdwwq1krXhQdJXiv XZCvazcwWCZth2DqqpkkPU Vvl7RmE5OebJftB39gaBui C63xSQAgcQlvvR5fhXcyyF 5cZjBcZnMyNFxwYXJkXHBs YWluXGYxXGZzMjBcbGFuZz EwMzNcaGljaFxmMVxkYmNo LZSeOUvoY8phZnAwUiQdUP BBLiBSZWNlaXZlZCBpbiBm c7SaOIubrsAjEXKgeMUpEV dpdGggdGhlIHBhdGllbnRc T2B4exSvRG6cZCCeQPHkW8 DrIDZoD18hXSMvqK7dMYMb KU4sLFSnbp4mipozeUQuzH PyWK3hJDAhvgHlt7KkKF4g KW72yDHvmVvzPJugDMiqu8 wavJZqe78ufJI3sENqhGZw B30uTCNtxdBmF7mjKaLyDy GzBB8zLMZiLQypPRcymun1 zIKpdCNpyCH9DPMieV4xpR 79ngSyskUQAZ7rjUzqLNev qR3lVGWaJHowXYRuZ1KphM 7vKH7EXxapYVLbSYTMY5Xv Z82nrTDwqD== MICROSCOPIC DESCRIPTION y9ksoPAnQKGvoQL9HaWmHO (test code = 3371) Acz1kbr3RlrHBvtBKgEWks oSCjjeMxso11zFY0oA29MD 5aGGHwTwI4KIKlhnJ0Aar2 KAXoIKLyiHTmX015m2nhx8 uqvrFyfIY0eYkxQTHeQBUu PTpnPGLjDyNtXCEPBu6YQX VEXHBhcn0= SPECIAL STUDIES (test y5ikoUIdIZFvxOJ7ApGoUJ code = 3376) Unx9nkx6KzrAGfoFPoNTyj zQFmcxOana52jSM1oZ31DN 4cOZIgQzP4LLXrrwU1Zmp3 XQKjPRZwrTDfR403OZQoSO BcpTalrco2iL10CDLhgC8q yNGcGQk2BXPuftNpuHbenG 4sIjAgRkMoHoXVhELvbI13 GAIyqhE4WXKnd56ym5MydO rtizZiNVQtKDavN8t2JXGp VOWxMTX2r1Pyy8QdyS1brV 7miQtnmW5owKPrrFP5rzyo j8Plb9NgV4nglTKbqGArdn FhGUAosyTIQC2OFnWVQQ6e T1JVJTVIIsshGxByYXmoLI RLTChCSHKJRSI0JOEBKNHn UEAURBrsFUTrZ31fbYMneY BTbGlkZXMgRXhhbWluZWQ6 FZPWug7gu7BqKGVtvj71if Neq3XnkMl3LDQjx381dj9t nzQ3NSLnDVE2XIg6SNNgGB BzwP7sFvE5bOMfFCDxDQN0 TXF0THUde1V9FX5eVJIzHA UjARUejtGun9pow3yzZEEl IIB8hhRnpB4aT8FwNONgi5 YgdGhlIHBhdGllbnRzIHNh hFJzRRJbsV64UDLbtXTuyX HqENVgVKK7KPvxwP6uXxMV raQhfe1evPZns9JlmBi9GW HofkNqkyDcJNRkabGmS66o yFPrmBYcc6byotBtwcOnaO PoeTVbDSFeVJJ5FRq6SUZe CXrqCGHnSIvwNIKpRN4rsS 0ujIjhaR9nuRLtdAC2tweh bNAchJ2tB8FeEIKmy0Ixrn twe5WbEDVbdsPtwh4vPTXr vFWRKRpdc6FjT0IyRFn7y2 UjkWmzYIluKZc3OkKgKXKz lWLphSOGMQ32YERgIZXkrC xdsS8ugJSRGFEvmmG9e6V1 KSjrBDGdVMd6DOtcolIrAU LriD7eKDRmJP9qTOv8drEf GVJxh2OfLM5dARJedMVbKI Z7CBZab4WbZ3Mau7ZyHMEa APVlzz3ztyDnOwXOdALbAG Qcsb26VFTtFL0eD0euUBPk SKOgpeDdfVWkh7NbTVFcxO O8aGRaMM5CXhOLk77cDOPe FXMOiyEmLNVezSksiMU2wh C3nK8aOwLXiXCrBqLKYTix etMvAHYlsv0bgaOuZQLpOU Xeg2BzxKMwaGGnugJrN6Ct w4DvTVUjcu68TBuocPOgql 69ER3hU6Wpr1KuqH9pERba ISIqi2OdiEOivWZxGNFdy5 KiZ0eqoeywXYaxrIVgbA8v VYUdRSf3OAEuu4DnISQuq9 QgYmUgcmVnYXJkZWQgYXMg hQ37AIK8rQrbgRyffkSjCY 8hTCIejwPxDIQiQOFscZ9z HTidtxZjOIQzycM2q3I2ZR utURWulqTmNehlZUT4wsFe beB0nYOgI8asssslIXkdCM Vnw1LqxO1wqWMQnKOjj9Sa yYJrhUGXiHJnCH2nzjKlJU 7eMRQ5ARfeTXWDWHBeTSnn JJUnWPI0NRjnHfbsYWS3jn OxORJmy1CcPFdiJ1kuA18n uGumdDo4sPUhvWtodLKgeO QmTGEevvV4f7U1YXUdc9Sj bmcuXHBhcn0= Gross assessment was [facility] performed at ([facility], = 2777) Department of Pathology, [address] [place] [address], Technical component was [facility] performed at ([facility], = 9729) Department of Pathology, [address] [place], [place] [id number], Professional component [facility] was performed at ([facility], code = 2779) Department of Pathology, [address] [place] [address], [facility] [id number] 10:56:00Surgical Pathology Report Case: [id number] Authorizing Provider: Vandana Tejada MD Collected: 08/31/2020 06:37 PM Ordering Location: [address] Received: 09/01/2020 08:13 AM Service Pathologist: [...] REPORT TO FOLLOW. Signing Pathologist Direct PhoneLine: [phone] signed by Thien Radford MD on 09/01/2020 at 3:59 [id number], [id number] groin cyst/iliopsoas mass, 6.3 x 6.1 x [...] technical testing was performed at [facility], Pathology Laboratory where it was [...] high complexity clinical la boratory testing.[facility], Department of Pathology, [address] [place] [address], [facility], Department of Pathology, [address] [place] [address], [facility], Department of Pathology, [address] [place] [address], FA, CHEST, WITH CONTRAST 2020-09-05 14:16:00Unlisted Reason for Exam - Click Yes and Enter Reason Below- >YesUnlisted 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 on09/05/2020 02:16 PMCT chest with IV [id number] 14:16:00Interface, External Ris In - 09/05/2020 2:18 [...] Smith Verified Date/Time: 09/05/2020 14:16:01 Reading Location: [facility] B1 C013Y CT [facility]-05 [...] Smith Verified Date/Time: 09/05/2020 14:16:01 Reading Location: [address] [facility] 2020-09-05 [...] MDReport Verified Date/Time: 09/05/2020 14:16:01 Reading Location: [facility] B1 C013Y CT [facility] W/Doppler(CW/PW/Color) 2020-09-05 09:47:35 Test Item Value Reference Range Interpretation Comments Ejection Fraction Est EF is 55-60% (test code = 2574) PXN (test code = Interface, External Ris In PXN) - 09/05/2020 9:47 AM CDTTransthoracic Echocardiography Report (TTE) Demographics Patient Name DANIEL DEL VALLE Date of Study 09/05/2020 BETHANYYL Gender Female Visit Number [id number] Race Unknown Room Number 2146 Number Date of 1960 Referring Physician Vandana Tejada MD Age 60 year(s) Purification Supervisor MARTA Be Interpreting Eduardo oRberts MD Fellow DESIREE Xavier Procedure Type of [...] Velocity: 2.81 m/s TR Gradient: 31.62 mmHg [facility] W/Doppler(CW/PW/Color)2020-09-05 09:47:35 Test Item Value Reference Range Interpretation Comments Ejection Fraction Est EF is 55-60% (test code = 2574) PXN (test code = Interface, External Ris In PXN) - 09/05/2020 9:47 AM CDTTransthoracic Echocardiography Report (TTE) Demographics Patient Name DANIEL DEL VALLE Date of Study 09/05/2020 DENYL Gender Female Visit Number [id number] Race Unknown Room Number 2146 Number Date of 1960 Referring Physician Vandana Tejada MD Age 60 year(s) Purification Supervisor MARTA Be Interpreting Eduardo Roberts MD Fellow [...] Velocity: 2.81 m/s TR Gradient: 31.62 mmHg [facility] W/Doppler(CW/PW/Color)2020-09-05 09:47:35 Test Item Value Reference Range Interpretation Comments Ejection Fraction Est EF is 55-60% (test code = 2574) PXN (test code = Interface, External Ris In PXN) - 09/05/2020 9:47 AM CDTTransthoracic Echocardiography Report (TTE) Demographics Patient Name DANIEL DEL VALLE Date of Study 09/05/2020 NEELAM Gender Female Visit Number [id number] Race Unknown Room Number 2146 Number Date of 1960 Referring Physician Vandana Tejada MD Age 60 year(s) Purification Supervisor MARTA Be Interpreting Eduardo Roberts MD Fellow [...] Velocity: 2.81 m/s TR Gradient: 31.62 mmHg [facility] [id number] 07:34:00 Test Item Value Reference Range Interpretation Comments Protein, Total (test 7.5 See_Comment [Autom ated code = 2885-2) message] The system which generated this result transmit yumiko reference range : 6.0 - 8.3 gm/dL . The reference range was not u sed to interpret th is result as normal/abnormal . Albumin (test code = 3.6 g/dL 3.5-5 11669-3) Alkaline Phosphatase 106 U/L 40-150 (test code = 6768-6) Total Bilirubin (test 0.2 mg/dL 0.2-1.2 code = 1975-2) Sodium (test code = 139 meq/L 174-044 9712-2) Potassium (test code 4.7 meq/L 3.5-5.1 = 2823-3) Chloride (test code = 104 meq/L 98-107 2074-0) CO2 (test code = 25 meq/L 22-29 2027-9) BUN (test code = 10 mg/dL 7- 3094-0) Creatinine (test code 0.70 mg/dL 0.57-1.25 = 2160-0) Glucose (test code = 159 mg/dL 70-105 H 2345-7) Calcium (test code = 8.8 mg/dL 8.4-10.2 12164-4) AST (test code = 9 U/L -1919-8) ALT (test code = 13 U/L 1741-6) EGFR (test code = 103 mL/min/1.[place] [address]-1) NOT ACCURATE CREATININE CLEARANCE IN PREDICTING GLOMERULAR FILTRATION RATE . ESTIMATED GFR I S NOT APPLICABLE FOR DIALYSIS PATIEN TS. LOPEZ (test code = JESSICA) Meat [employer]er ID - BALA Hernandez Lab Interpretation Abnormal (test code = 42818-9) [facility] [id number] 07:34:00 Test Item Value Reference Range Interpretation Comments Protein, Total (test 7.5 See_Comment [Autom ated code = 2885-2) message] The system which generated this result transmit yumiko reference range : 6.0 - 8.3 gm/dL . The reference range was not u sed to interpret th is result as normal/abnormal . Albumin (test code = 3.6 g/dL 3.5-5 10320-9) Alkaline Phosphatase 106 U/L 40-150 (test code = 6768-6) Total Bilirubin (test 0.2 mg/dL 0.2-1.2 code = 1974-2) Sodium (test code = 139 meq/L 589-311 3837-2) Potassium (test code 4.7 meq/L 3.5-5.1 = 2823-3) Chloride (test code = 104 meq/L 98-107 2074-0) CO2 (test code = 25 meq/L 22-29 2027-9) BUN (test code = 10 mg/dL 7- 3094-0) Creatinine (test code 0.70 mg/dL 0.57-1.25 = 2160-0) Glucose (test code = 159 mg/dL 70-105 H 2345-7) Calcium (test code = 8.8 mg/dL 8.4-10.2 90207-9) AST (test code = 9 U/L 34 1919-8) ALT (test code = 13 U/L 1741-6) EGFR (test code = 103 mL/min/1.[place] [address]-9) NOT ACCURATE CREATININE CLEARANCE IN PREDICTING GLOMERULAR FILTRATION RATE . ESTIMATED GFR I S NOT APPLICABLE FOR DIALYSIS PATIEN TSMaximiliano JESSICA (test code = JESSICA) Meat [employer]er ID - BALA M Lab Interpretation Abnormal (test code = 14016-0) [facility] [id number] 07:34:00 Test Item Value Reference Range Interpretation Comments Protein, Total (test 7.5 See_Comment [Autom ated code = 2885-2) message] The system which generated this result transmit yumiko reference range : 6.0 - 8.3 gm/dL . The reference range was not u sed to interpret th is result as normal/abnormal . Albumin (test code = 3.6 g/dL 3.5-5 19984-8) Alkaline Phosphatase 106 U/L 40-150 (test code = 6768-6) Total Bilirubin (test 0.2 mg/dL 0.2-1.2 code = 1974-2) Sodium (test code = 139 meq/L 429-224 8756-2) Potassium (test code 4.7 meq/L 3.5-5.1 = 2823-3) Chloride (test code = 104 meq/L 98-107 2075-0) CO2 (test code = 25 meq/L 22-29 8-9) BUN (test code = 10 mg/dL 7-21 3094-0) Creatinine (test code 0.70 mg/dL 0.57-1.25 = 2160-0) Glucose (test code = 159 mg/dL 70-105 H 2345-7) Calcium (test code = 8.8 mg/dL 8.4-10.2 77405-9) AST (test code = 9 U/L 5-34 1920-8) ALT (test code = 13 U/L 6-55 1742-6) EGFR (test code = 103 mL/min/1.[place] [address]-8) NOT ACCURATE CREATININE CLEARANCE IN PREDICTING GLOMERULAR FILTRATION RATE . ESTIMATED GFR I S NOT APPLICABLE FOR DIALYSIS PATIEN TSMaximiliano JESSICA (test code = JESSICA) Meat [employer]er ID - BALA M Lab Interpretation Abnormal (test code = 08073-9) [facility] [id number] 07:34:00 Test Item Value Reference Range Interpretation [...] S NOT APPLICABLE FOR DIALYSIS PATIEN TS. Meat Cooler ID - BALA MSARS-CoV2/RT-PCR (Asymptomatic ONLY)2020-09-04 12:52:00 Test Item Value Reference Range Interpretation Comments SARS-COV2/RT-PCR Negative Not Detected, (test code = Negative, See 96293-4) external report for linked test SARS-COV-2 [facility] PERFORMING LAB (test code = 00976-3) JESSICA (test code = Negative result for [...] of the Act. Fact Sheet for Healthcare Providers:https://www.Baynetwork/sites/default/f nito/product/documents/F act_Sheet_HC_Providers_L luc_PDCS-JvV-4.pdf Fact Sheet for Healthcare Patients:https://www.Melon Power/sites/default/fi les/product/documents/Fa ct_Sheet_Patients_Lyra_S ARS-CoV-2.pdf Performing Laboratory:[facility] [place] [address] [facility]As[facility]omatic ONLY)2020-09-04 12:52:00 Test Item Value Reference Range Interpretation Comments SARS-COV2/RT-PCR Negative Not Detected, (test code = Negative, See 89488-2) external report for linked test SARS-COV-2 [facility] PERFORMING LAB (test code = 03534-8) JESSICA (test code = Negative result for [...] of the Act. Fact Sheet for Healthcare Providers:https://www.Kingspoke idel.[employer]/sites/default/f nito/product/documents/F act_Sheet_HC_Providers_L lsk_ZWQI-VqB-8.pdf Fact Sheet for Healthcare Patients:https://www.ashly del.com/sites/default/fi les/product/documents/Fa ct_Sheet_Patients_Lyra_S ARS-CoV-2.pdf Performing Laboratory:[facility] [place] [address] [facility] (Asymptomatic ONLY)2020-09-04 12:52:00 Test Item Value Reference Range Interpretation Comments SARS-COV2/RT-PCR Negative Not Detected, (test code = Negative, See 76008-5) external report for linked test SARS-COV-2 [facility] PERFORMING LAB (test code = 08930-3) JESSICA (test code = Negative result for [...] of the Act. Fact Sheet for Healthcare Providers:https://www.Kingspoke idel.[employer]/sites/default/f nito/product/documents/F act_Sheet_HC_Providers_L gvv_EEJH-FpJ-1.pdf Fact Sheet for Healthcare Patients:https://www.RawFlow.[employer]/sites/default/fi les/product/documents/Fa ct_Sheet_Patients_Lyra_S ARS-CoV-2.pdf Performing Laboratory:[facility] [place] [address] [facility] ([facility])2020-09-04 12:52:00 Test Item Value Reference Range Interpretation Comments SARS-COV2/RT-PCR (test Negative Not Detected, Negative, code = 4902647) See external report for linked test SARS-COV-2 PERFORMING LAB [facility] (test code = 0295403) Negative result for this test determines that [...] 564(g) of the Act.Fact Sheet for Healthcare Providers:https://www.MangoPlate.[employer]/sites/default/files/product/documents/Fact_Eline g_HL_Dkldajwfz_Lmss_OXLN-SnK-7.pdfFact Sheet for Healthcare Patients:https://www.MangoPlate.[employer]/sites/default/files/product/ documents/Unqz_Jbnni_Ktsutstk_Hmca_JKQX-DzK-7.pdfPerforming Laboratory:[facility], [place] [address]SH[facility] with platelet count + automated [id number] 06:38:00 Test Item Value Reference Range Interpretation Comments WBC (test code = 6690-2) 11.4 See_Comment H [A utomated message] The system [employer] Platform generated this result transmitted ref erence range: 3.5 - 10 .5 K/L. The refe rence range was not u sed to interpret this result as normal/abnor mal. RBC (test code = 789-8) 4.35 See_Comment [Au tomated message] The system [employer] generated this result transmitted ref erence range: 3.93 - 5 .22 M/L. The refe rence range was not u sed to interpret this result as normal/abnor mal. MCHC (test code = 786-4) 28.0 See_Comment L [A utomated message] The system [employer] generated this result transmitted ref erence range: [...] See_Comment [Aut omated message] 777-3) The system [employer] generated this result transmitted ref erence range: 150 - 45 0 K/CU MM. The referen ce range was not u sed to interpret this result as normal/abnor mal. MPV (test code = 9.0 fL 9.4-12.3 L 44412-9) nRBC (test code = 413) 0 See_Comment [Aut omated message] The system [employer] generated this result transmitted ref erence range: [...] H [Aut omated message] 670) The system [employer] generated this result transmitted ref erence range: 1.56 - 6 .13 K/L. The refe rence range was not u sed to interpret this result as normal/abnor mal. # Lymphs (test code = 2.06 See_Comment [Auto mated message] 414) The system [employer] generated this result transmitted ref erence range: 1.18 - 3 .74 K/L. The refe rence range was not u sed to interpret this result as normal/abnor mal. # Monos (test code = 0.95 See_Comment H [Autom ated message] 415) The system [employer] generated this result transmitted ref erence range: 0.24 - 0 .36 K/L. The refe rence range was not u sed to interpret this result as normal/abnor mal. # Eos (test code = 416) 0.46 See_Comment H [Au tomated message] The system [employer] generated this result transmitted ref erence range: 0.04 - 0 .36 K/L. The refe rence range was not u sed to interpret this result as normal/abnor mal. # Baso (test code = 417) 0.03 See_Comment [A utomated message] The system [employer] generated this result transmitted ref erence range: 0.01 - 0 .08 K/L. The refe rence range was not u sed to interpret this result as normal/abnor mal. Immature 1 % 0-1 Granulocytes-Relative (test code = 2801) Lab Interpretation (test Abnormal code = 07743-9) [facility] with platelet count + automated [id number] 06:38:00 Test Item Value Reference Range Interpretation Comments WBC (test code = 6690-2) 11.4 See_Comment H [A utomated message] The system [employer] generated this result transmitted ref erence range: 3.5 - 10 .5 K/L. The refe rence range was not u sed to interpret this result as normal/abnor mal. RBC (test code = 789-8) 4.35 See_Comment [Au tomated message] The system [employer] generated this result transmitted ref erence range: 3.93 - 5 .22 M/L. The refe rence range was not u sed to interpret this result as normal/abnor mal. MCHC (test code = 786-4) 28.0 See_Comment L [A utomated message] The system [employer] generated this result transmitted ref erence range: [...] See_Comment [Aut omated message] 777-3) The system [employer] generated this result transmitted ref erence range: 150 - 45 0 K/CU MM. The referen ce range was not u sed to interpret this result as normal/abnor mal. MPV (test code = 9.0 fL 9.4-12.3 L 76506-8) nRBC (test code = 413) 0 See_Comment [Aut omated message] The system [employer] generated this result transmitted ref erence range: [...] H [Aut omated message] 670) The system [employer] generated this result transmitted ref erence range: 1.56 - 6 .13 K/L. The refe rence range was not u sed to interpret this result as normal/abnor mal. # Lymphs (test code = 2.06 See_Comment [Auto mated message] 414) The system [employer] generated this result transmitted ref erence range: 1.18 - 3 .74 K/L. The refe rence range was not u sed to interpret this result as normal/abnor mal. # Monos (test code = 0.95 See_Comment H [Autom ated message] 415) The system [employer] generated this result transmitted ref erence range: 0.24 - 0 .36 K/L. The refe rence range was not u sed to interpret this result as normal/abnor mal. # Eos (test code = 416) 0.46 See_Comment H [Au tomated message] The system [employer] generated this result transmitted ref erence range: 0.04 - 0 .36 K/L. The refe rence range was not u sed to interpret this result as normal/abnor mal. # Baso (test code = 417) 0.03 See_Comment [A utomated message] The system [employer] generated this result transmitted ref erence range: 0.01 - 0 .08 K/L. The refe rence range was not u sed to interpret this result as normal/abnor mal. Immature 1 % 0-1 Granulocytes-Relative (test code = 2801) Lab Interpretation (test Abnormal code = 79628-8) [facility] with platelet count + automated [id number] 06:38:00 Test Item Value Reference Range Interpretation Comments WBC (test code = 6690-2) 11.4 See_Comment H [A utomated message] The system [employer] generated this result transmitted ref erence range: 3.5 - 10 .5 K/L. The refe rence range was not u sed to interpret this result as normal/abnor mal. RBC (test code = 789-8) 4.35 See_Comment [Au tomated message] The system [employer] Platform generated this result transmitted ref erence range: 3.93 - 5 .22 M/L. The refe rence range was not u sed to interpret this result as normal/abnor mal. MCHC (test code = 786-4) 28.0 See_Comment L [A utomated message] The system [employer] Platform generated this result transmitted ref erence range: [...] See_Comment [Aut omated message] 777-3) The system [employer] generated this result transmitted ref erence range: 150 - 45 0 K/CU MM. The referen ce range was not u sed to interpret this result as normal/abnor mal. MPV (test code = 9.0 fL 9.4-12.3 L 56534-2) nRBC (test code = 413) 0 See_Comment [Aut omated message] The system [employer] generated this result transmitted ref erence range: [...] H [Aut omated message] 670) The system [employer] generated this result transmitted ref erence range: 1.56 - 6 .13 K/L. The refe rence range was not u sed to interpret this result as normal/abnor mal. # Lymphs (test code = 2.06 See_Comment [Auto mated message] 414) The system [employer] generated this result transmitted ref erence range: 1.18 - 3 .74 K/L. The refe rence range was not u sed to interpret this result as normal/abnor mal. # Monos (test code = 0.95 See_Comment H [Autom ated message] 415) The system [employer] generated this result transmitted ref erence range: 0.24 - 0 .36 K/L. The refe rence range was not u sed to interpret this result as normal/abnor mal. # Eos (test code = 416) 0.46 See_Comment H [Au tomated message] The system [employer] generated this result transmitted ref erence range: 0.04 - 0 .36 K/L. The refe rence range was not u sed to interpret this result as normal/abnor mal. # Baso (test code = 417) 0.03 See_Comment [A utomated message] The system [employer] generated this result transmitted ref erence range: 0.01 - 0 .08 K/L. The refe rence range was not u sed to interpret this result as normal/abnor mal. Immature 1 % 0-1 Granulocytes-Relative (test code = 2801) Lab Interpretation (test Abnormal code = 54970-8) [facility] W/PLT COUNT & AUTO [id number] 06:38:00 Test Item Value Reference Range Interpretation [...] PERCENT (BEAKER) (test code = 2801) Prothrombin time/[id number] 05:07:00 Test Item Value Reference Interpretation Comments [...] valves. Lab Interpretation Abnormal (test code = 87566-8) [facility][id number] 05:07:00 Test Item Value Reference Interpretation Comments [...] valves. Lab Interpretation Abnormal (test code = 41786-1) [facility]/[id number] 05:07:00 Test Item Value Reference Interpretation Comments [...] valves. Lab Interpretation Abnormal (test code = 25287-9) [facility]/[id number] 05:07:00 Test Item Value Reference Range Interpretation Comments PROTIME (BEAKER) 19.2 seconds 11.9-14.2 H (test code = 759) INR (BEAKER) (test 1.64 See_Comment [Automat ed message] code = 370) The system [employer] Platform generated this result transmitted ref erence range: [...] See_Comment H [A utomated message] The system [employer] generated this result transmitted ref erence range: 3.5 - 10 .5 K/L. The refe rence range was not u sed to interpret this result as normal/abnor mal. RBC (test code = 789-8) 4.36 See_Comment [Au tomated message] The system [employer] generated this result transmitted ref erence range: 3.93 - 5 .22 M/L. The refe rence range was not u sed to interpret this result as normal/abnor mal. MCHC (test code = 786-4) 28.6 See_Comment L [A utomated message] The system [employer] generated this result transmitted ref erence range: [...] See_Comment [Aut omated message] 897-3) The system [employer] generated this result transmitted ref erence range: 150 - 45 0 K/CU MM. The referen ce range was not u sed to interpret this result as normal/abnor mal. MPV (test code = 8.9 fL 9.4-12.3 L 60461-5) nRBC (test code = 413) 0 See_Comment [Aut omated message] The system [employer] generated this result transmitted ref erence range: 0 - 0 /1 00 WBC. The refere nce range was not u sed to interpret this result as normal/abnor mal. Lab Interpretation (test Abnormal code = 66466-3) [facility] (Hemogram only)2020-09-02 04:59:00 Test Item Value Reference Range Interpretation Comments WBC (test code = 6690-2) 10.9 See_Comment H [A utomated message] The system [employer] generated this result transmitted ref erence range: 3.5 - 10 .5 K/L. The refe rence range was not u sed to interpret this result as normal/abnor mal. RBC (test code = 789-8) 4.36 See_Comment [Au tomated message] The system [employer] generated this result transmitted ref erence range: 3.93 - 5 .22 M/L. The refe rence range was not u sed to interpret this result as normal/abnor mal. MCHC (test code = 786-4) 28.6 See_Comment L [A utomated message] The system [employer] generated this result transmitted ref erence range: [...] code = 361 See_Comment [Aut omated message] 677-3) The system [employer] generated this result transmitted ref erence range: 150 - 45 0 K/CU MM. The referen ce range was not u sed to interpret this result as normal/abnor mal. MPV (test code = 8.9 fL 9.4-12.3 L 22576-0) nRBC (test code = 413) 0 See_Comment [Aut omated message] The system [employer] generated this result transmitted ref erence range: 0 - 0 /1 00 WBC. The refere nce range was not u sed to interpret this result as normal/abnor mal. Lab Interpretation (test Abnormal code = 87552-3) [facility] (Hemogram only)2020-09-02 04:59:00 Test Item Value Reference Range Interpretation Comments WBC (test code = 6690-2) 10.9 See_Comment H [A utomated message] The system [employer] generated this result transmitted ref erence range: 3.5 - 10 .5 K/L. The refe rence range was not u sed to interpret this result as normal/abnor mal. RBC (test code = 789-8) 4.36 See_Comment [Au tomated message] The system [employer] generated this result transmitted ref erence range: 3.93 - 5 .22 M/L. The refe rence range was not u sed to interpret this result as normal/abnor mal. MCHC (test code = 786-4) 28.6 See_Comment L [A utomated message] The system [employer] generated this result transmitted ref erence range: [...] code = 361 See_Comment [Aut omated message] 007-3) The system [employer] generated this result transmitted ref erence range: 150 - 45 0 K/CU MM. The referen ce range was not u sed to interpret this result as normal/abnor mal. MPV (test code = 8.9 fL 9.4-12.3 L 10258-3) nRBC (test code = 413) 0 See_Comment [Aut omated message] The system [employer] generated this result transmitted ref erence range: 0 - 0 /1 00 WBC. The refere nce range was not u sed to interpret this result as normal/abnor mal. Lab Interpretation (test Abnormal code = 53701-3) [facility] (HEMOGRAM ONLY)2020-09-02 04:59:00 Test Item Value [...] (BEAKER) (test code = 413) U/S, CORE [id number] 08:58:00Reason for exam:->BIOPSY LEFT ILIOPSOAS MASS US VS CT GUIDED [facility]ENTERName: DANIEL DEL [facility]LE : 1960 Sex: FFINAL REPORT Procedure: Ultrasound-Guided left iliopsoas/inguinal mass core biopsy Pre/post-procedure diagnosis: Left iliopsoas/inguinal mass Wind Turbine Design Engineer: Abdirahman Chopra MD Assistants: none Sedation: Moderate [...] MDReport Verified Date/Time: 09/01/2020 08:58:59 Reading Location: [facility] Diagnostic Imaging [place] [address] 1.310.12 US Core [id number] 08:58:00Interface, External Ris In - 09/01/2020 9:01 AM CDTFINAL REPORT Procedure: Ultrasound-Guided left iliopsoas/inguinal mass core biopsy Pre/post-procedure diagnosis: Left iliopsoas /inguinal mass Wind Turbine Design Engineer: Abdirahman Chopra MD Assistants: none Sedation: Moderate [...] MDReport Verified Date/Time: 09/01/2020 08:58:59 Reading Location: [facility] Diagnostic Imaging Reading Room - [facility] 1.310.12 [facility] 2020-09-01 08:58:00Interface, External Ris In - 09/01/2020 9:01 AM CDTFINAL REPORT Procedure: Ultrasound-Guided left iliopsoas/inguinal mass core biopsy Pre/post-procedure diagnosis: Left iliopsoas /inguinal mass Wind Turbine Design Engineer: Abdirahman Chopra MD Assistants: none Sedation: Moderate [...] MDReport Verified Date/Time: 09/01/2020 08:58:59 Reading Location: [facility] Diagnostic Imaging Reading Room [place] [address] 1.310.12 [facility] 2020-09-01 08:58:00Interface, External Ris In - 09/01/2020 9:01 AM CDTFINAL REPORT Procedure: Ultrasound-Guided left iliopsoas/inguinal mass core biopsy Pre/post-procedure diagnosis: Left iliopsoas /inguinal mass Wind Turbine Design Engineer: Abdirahman Chopra MD Assistants: none Sedation: Moderate [...] MDReport Verified Date/Time: 09/01/2020 08:58:59 Reading Location: [facility] Diagnostic Imaging Reading Room - [facility] 1.310.12 [facility] (HEMOGRAM ONLY)2020-09-01 05:07:00 Test Item [...] 0-0 (BEAKER) (test code = 413) PROTHROMBIN TIME/[id number] 04:44:00 Test Item Value Reference Range Interpretation Comments PROTIME (BEAKER) 19.1 seconds 11.9-14.2 H (test code = 759) INR (BEAKER) (test 1.63 See_Comment [Automat ed message] code = 370) The system [employer] Platform generated this result transmitted ref erence range: <=5.90. The reference range was not used to int erpret this result as normal/abnormal . RECOMMENDED COUMADIN/WARFARIN INR THERAPY RANGESSTANDARD DOSE: 2.0 - 3.0 Includes: PROPHYLAXIS forvenous thrombosis, systemic embolization; TREATMENT for venous thrombosis and/or pulmonary embolus.HIGH RISK: Target INR is 2.5-3.5 for patients with mechanical heart valves.Vitamin B12 and [id number] 06:16:00 Test Item Value Reference Range Interpretation Comments Vitamin B12 (test 327 pg/mL 213-816 code = 2132-9) Folate (test code = 3.70 ng/mL See_Comment L [Automa yumiko 2284-8) message] The system which generated this result transmit yumiko reference range : >=7.00. The reference range was not used to interpret this result as normal/abnormal . JESSICA (test code = JESSICA) Meat Cooler ID - BALA Hernandez Lab Interpretation Abnormal (test code = 83770-5) [facility] [id number] 06:16:00 Test Item Value Reference Range Interpretation Comments Vitamin B12 (test 327 pg/mL 213-816 code = 2132-9) Folate (test code = 3.70 ng/mL See_Comment L [Automa yumiko 2284-8) message] The system which generated this result transmit yumiko reference range : >=7.00. The reference range was not used to interpret this result as normal/abnormal . JESSICA (test code = JESSICA) Meat Cooler ID - BALA Hernandez Lab Interpretation Abnormal (test code = 84874-3) [facility] [id number] 06:16:00 Test Item Value Reference Range Interpretation Comments Vitamin B12 (test 327 pg/mL 213-816 code = 2132-9) Folate (test code = 3.70 ng/mL See_Comment L [Automa yumiko 2284-8) message] The system which generated this result transmit yumiko reference range : >=7.00. The reference range was not used to interpret this result as normal/abnormal . JESSICA (test code = JESSICA) Meat Cooler ID - BALA Hernandez Lab Interpretation Abnormal (test code = 90905-9) [facility] AND [id number] 06:16:00 Test Item Value Reference Range Interpretation Comments VITAMIN B12 (BEAKER) 327 pg/mL 213-816 (test code = 774) FOLATE (BEAKER) 3.70 ng/mL See_Comment L [Automated message] (test code = 362) The system which generated this result transmitted ref erence range: >=7.00. The reference range was not used to interpr et this result as normal/abnormal . Meat Cooler ID - BALA MPROTHROMBIN TIME/[id number] 05:36:00 Test Item Value Reference Range Interpretation [...] 0-0 (BEAKER) (test code = 413) CT, [id number] 11:32:00Unlisted Reason for Exam - Click Yes and Enter Reason Below->NoWill this procedure require oral contrast?->No [facility] NEELAM : 1960 [...] size and patent. Right lower extremity: The TANKER DRIVER, DFA, SFA, and popliteal arteries are patent. Trifurcation vessels are patent. Left lower extremity: The TANKER DRIVER, DFA, SFA, and popliteal arteries are patent. [...] MDReport Verified Date/Time: 08/30/2020 11:32:07 Reading Location: [place] [address] Angio Body Reading Room CT, CTA AAA, W/ BELLA.EXT.RUNOFF 2020-08-30 11:32:00LLE DVT, assess prior pelvic mass, please assess venous phaseAnesthesia:->None [facility]LE : 1960 Sex: [...] size and patent. Right lower extremity: The TANKER DRIVER, DFA, SFA, and popliteal arteries are patent. Trifurcation vessels are patent. Left lower extremity: The TANKER DRIVER, DFA, SFA, and popliteal arteries are patent. [...] Jayort Verified Date/Time: 08/30/2020 11:32:07 Reading Location: [place] [address] Angio Body Reading Room CT abdomen/pelvis with [...] size and patent. Right lower extremity: The TANKER DRIVER, DFA, SFA, and popliteal arteries are patent. Trifurcation vessels are patent. Left lower extremity: The TANKER DRIVER, DFA, SFA, and popliteal arteries are patent. [...] MDReport Verified Date/Time: 08/30/2020 11:32:07 Reading Location: [place] [address] Angio Body Reading Room [facility] and [id number] 11:32:00Interface, External Ris In - 08/30/2020 11:34 [...] size and patent. Right lower extremity: The TANKER DRIVER, DFA, SFA, and popliteal arteries are patent. Trifurcation vessels are patent. Left lower extremity: The TANKER DRIVER, DFA, SFA, and popliteal arteries are patent. [...] MDReport Verified Date/Time: 08/30/2020 11:32:07 Reading Location: [place] [address] Angio Body Reading Room [facility]pelvis with IV [id number] 11:32:00Interface, External Ris In - 08/30/2020 11:34 [...] size and patent. Right lower extremity: The TANKER DRIVER, DFA, SFA, and popliteal arteries are patent. Trifurcation vessels are patent. Left lower extremity: The TANKER DRIVER, DFA, SFA, and popliteal arteries are patent. [...] MDReport Verified Date/Time: 08/30/2020 11:32:07 Reading Location: [place] [id number] Angio Body Reading Room [facility] AAA and [id number] 11:32:00Interface, External Ris In - 08/30/2020 11:34 [...] size and patent. Right lower extremity: The TANKER DRIVER, DFA, SFA, and popliteal arteries are patent. Trifurcation vessels are patent. Left lower extremity: The TANKER DRIVER, DFA, SFA, and popliteal arteries are patent. [...] MDReport Verified Date/Time: 08/30/2020 11:32:07 Reading Location: [place] [address] Angio Body Reading Room [facility]pelvis with IV [id number] 11:32:00Interface, External Ris In - 08/30/2020 11:34 [...] size and patent. Right lower extremity: The TANKER DRIVER, DFA, SFA, and popliteal arteries are patent. Trifurcation vessels are patent. Left lower extremity: The TANKER DRIVER, DFA, SFA, and popliteal arteries are patent. [...] MDReport Verified Date/Time: 08/30/2020 11:32:07 Reading Location: [facility] B1 P048 Angio Body Reading Room [facility] AAA and [id number] 11:32:00Interface, External Ris In - 08/30/2020 11:34 [...] size and patent. Right lower extremity: The TANKER DRIVER, DFA, SFA, and popliteal arteries are patent. Trifurcation vessels are patent. Left lower extremity: The TANKER DRIVER, DFA, SFA, and popliteal arteries are patent. [...] MDReport Verified Date/Time: 08/30/2020 11:32:07 Reading Location: [facility] P048 Angio Body Reading [facility], [id number] 09:31:54Ejection FractionSLE ECHO HEARTLAB MKCKESSON CPACS Left Impression1. The [...] +--- + + + + + !Dist Vivien teal ! !75.5 ! ! ! + + + + + + !Mid PHARMACY BENEFITS COORDINATOR ! !59.4 ! ! ! + + +-- + + + !Dist PHARMACY BENEFITS COORDINATOR ! !61.6 ! ! ! + + [...] Study 08/29/2020 NEELAM Age 60 Visit Number [id number] Gender Female Accession Number [id number] Date of 1960 Referring Tricia Hernandez Room Number 0173 Physician Richard Purification Supervisor Stacy Benitez MD RVT Physician ProcedureType of [...] + + + + + + !Mid PHARMACY BENEFITS COORDINATOR ! !59.4 ! ! ! + + + + + + !Dist PHARMACY BENEFITS COORDINATOR ! !61.6 ! ! ! + + + ---------+ + + !Prox JANETTE ! !64.3 ! ! ! + + + +---- + + !Mid JANETTE ! !80.3 ! ! ! + + + + + + !Dist JANETTE ! !67.1 ! ! ! + + + + + +[facility] [id number] 09:31:54Ejection Formerly [facility] ECHO HEARTLAB [facility] Left Impression1. The common femoral, profunda [...] + + + + + + !Mid PHARMACY BENEFITS COORDINATOR ! !59.4 ! ! ! + + +-- + + + !Dist PHARMACY BENEFITS COORDINATOR ! !61.6 ! ! ! + + [...] Study 08/29/2020 NEELAM Age 60 Visit Number [id number] Gender Female Accession Number [id number] Date of 1960 Referring Tricia Hernandez Room Number 8011 Physician Richard Purification Supervisor Stacy Proctor Interpreting Vivek Benitez MD RVT [...] + + + + + + !Mid PHARMACY BENEFITS COORDINATOR ! !59.4 ! ! ! + + + + + + !Dist PHARMACY BENEFITS COORDINATOR ! !61.6 ! ! ! + + + ---------+ + + !Prox JANETTE ! !64.3 ! ! ! + + + +---- + + !Mid JANETTE ! !80.3 ! ! ! + + + + + + !Dist JANETTE ! !67.1 ! ! ! + + + + + +[facility], [id number] 09:31:54Ejection Formerly [facility] ECHO HEARTLAB [facility] Left Impression1. The common femoral, profunda [...] + + + + + + !Mid PHARMACY BENEFITS COORDINATOR ! !59.4 ! ! ! + + +-- + + + !Dist PHARMACY BENEFITS COORDINATOR ! !61.6 ! ! ! + + [...] Study 08/29/2020 NEELAM Age 60 Visit Number [id number] Gender Female Accession Number [id number] Date of 1960 Referring Tricia Hernandez Room Number 8912 Physician Richard Purification Supervisor Stacy Benitez MD RVT Physician ProcedureType of [...] + + + + + + !Mid PHARMACY BENEFITS COORDINATOR ! !59.4 ! ! ! + + + + + + !Dist PHARMACY BENEFITS COORDINATOR ! !61.6 ! ! ! + + + ---------+ + + !Prox JANETTE ! !64.3 ! ! ! + + + +---- + + !Mid JANETTE ! !80.3 ! ! ! + + + + + + !Dist JANETTE ! !67.1 ! ! ! + + + + + +[facility] and [id number] 06:17:00 Test Item Value Reference Range Interpretation [...] mL/min/1.[place] [address]-6) NOT ACCURATE CREATININE CLEARANCE IN PREDICTING GLOMERULAR FILTRATION RATE . ESTIMATED GFR I S NOT APPLICABLE FOR DIALYSIS PATIEN TS. JESSICA (test code = Meat Cooler ID - BS JESSICA) [facility] and [id number] 06:17:00 Test Item Value Reference Range Interpretation [...] mL/min/1.[place] [address]-0) NOT ACCURATE CREATININE CLEARANCE IN PREDICTING GLOMERULAR FILTRATION RATE . ESTIMATED GFR I S NOT APPLICABLE FOR DIALYSIS PATIEN TS. JESSICA (test code = Meat Cooler ID - BS JESSICA) [facility] and [id number] 06:17:00 Test Item Value Reference Range Interpretation [...] mL/min/1.73 [place] [address]-3) NOT ACCURATE CREATININE CLEARANCE IN PREDICTING GLOMERULAR FILTRATION RATE . ESTIMATED GFR I S NOT APPLICABLE FOR DIALYSIS PATIEN TS. JESSICA (test code = Meat Cooler ID - BS JESSICA) [facility] HospitalB[facility] [id number] 06:17:00 Test Item Value Reference Range Interpretation Comments BLOOD UREA NITROGEN 13 mg/dL 7-21 (BEAKER) (test code = 354) CREATININE (BEAKER) 0.72 mg/dL 0.57-1.25 (test code = 358) BUN/CREAT RATIO 18 For a normal (BEAKER) (test code individu al on a = 9857808877) normal diet, t he reference inter jewel for the mass ra nabil ranges between 12:1 and 20:1 (BUN i n mg/dL/creatinin e in mg/dL) EGFR (BEAKER) (test 100 mL/min/1.73 ESTIM ATED GFR IS code = 1092) sq m NOT ACCURATE CREATININE CLEARANCE IN PREDICTING GLOMERULAR FILTRATION RATE . ESTIMATED GFR I S NOT APPLICABLE FOR DIALYSIS PATIEN TS. Meat Cooler ID - BSCBC (HEMOGRAM ONLY)2020-08-30 05:50:00 Test [...] 0-0 (BEAKER) (test code = 413) PROTHROMBIN TIME/[id number] 05:48:00 Test Item Value Reference Range Interpretation Comments PROTIME (BEAKER) 21.5 seconds 11.9-14.2 H (test code = 759) INR (BEAKER) (test 1.89 See_Comment [Automat ed message] code = 370) The system Sense Platform generated this result transmitted ref erence range: [...] 1.0-2.0 units/mL once daily enoxaparin Ref: CHEST 2012;141:[id number] Lab Interpretation (test Normal code = 07134-7) [facility] HospitalHeparin Assay - Low Molecular [id number] 14:07:00 Test Item Value Reference Range Interpretation Comments Anti 10A-Lovenox (test 0.85 u/ml 0.6-2 code = 1605) JESSICA (test code = JESSICA) Anti-Factor 10-A Level (Heparin Assay for Low Molecular Weight Heparin)Monitoring Guidelines: Blood samples should be obtained 4 hours post subcutaneous injection (time of Peak level) Therapeutic Peak Levels: 0.6-1.0 units/mL twice daily enoxaparin 1.0-2.0 units/mL once daily enoxaparin Ref: CHEST 2012;141:[id number] Lab Interpretation (test Normal code = 22024-8) [facility] - Low Molecular [id number] 14:07:00 Test Item Value Reference Range Interpretation Comments Anti 10A-Lovenox (test 0.85 u/ml 0.6-2 code = 1605) JESSICA (test code = JESSICA) Anti-Factor 10-A Level (Heparin Assay for Low Molecular Weight Heparin)Monitoring Guidelines: Blood samples should be obtained 4 hours post subcutaneous injection (time of Peak level) Therapeutic Peak Levels: 0.6-1.0 units/mL twice daily enoxaparin 1.0-2.0 units/mL once daily enoxaparin Ref: CHEST 2012;141:[id number] Lab Interpretation (test Normal code = 95178-6) [facility] HospitalHEPARIN ASSAY - LOW MOLECULAR [id number] 14:07:00 Test Item Value Reference Range Interpretation Comments LOVENOX-ANTI 10A (BEAKER) (test 0.85 u/ml 0.60-2.00 code = 1605) Anti-Factor 10-A Level (Heparin Assay for Low Molecular Weight Heparin)Monitoring Guidelines: Blood samples should be obtained 4 hours post subcutaneous injection (time of Peak level) Therapeutic Peak Levels: 0.6-1.0 units/mL twice daily enoxaparin 1.0-2.0 units/mL once daily enoxaparinRef: CHEST 2012;141:[id number] (HEMOGRAM ONLY)2020-08-29 13:22:00 Test Item Value Reference [...] 0-0 (BEAKER) (test code = 413) PROTHROMBIN TIME/[id number] 05:41:00 Test Item Value Reference Range Interpretation Comments PROTIME (BEAKER) 17.4 seconds 11.9-14.2 H (test code = 759) INR (BEAKER) (test 1.45 See_Comment [Automat ed message] code = 370) The system Sense Platform generated this result transmitted ref erence range: <=5.90. The reference range was not used to int erpret this result as normal/abnormal . RECOMMENDED COUMADIN/WARFARIN INR THERAPY RANGESSTANDARD DOSE: 2.0 - 3.0 Includes: PROPHYLAXIS forvenous thrombosis, systemic embolization; TREATMENT for venous thrombosis and/or pulmonary embolus.HIGH RISK: Target INR is 2.5-3.5 for patients with mechanical heart valves.BUN AND CREATININE [id number] 17:04:00 Test Item Value Reference Range Interpretation Comments BLOOD UREA NITROGEN 9 mg/dL 7-21 (BEAKER) (test code = 354) CREATININE (BEAKER) 0.79 mg/dL 0.57-1.25 (test code = 358) BUN/CREAT RATIO 11 For a normal (BEAKER) (test code individu al on a = 0687026572) normal diet, t he reference inter jewel for the mass ra nabil ranges between 12:1 and 20:1 (BUN i n mg/dL/creatinin e in mg/dL) EGFR (BEAKER) (test 90 mL/min/1.73 ESTIMA YUMIKO GFR IS code = 1092) sq m NOT ACCURATE CREATININE CLEARANCE IN PREDICTING GLOMERULAR FILTRATION RATE . ESTIMATED GFR I S NOT APPLICABLE FOR DIALYSIS PATIEN TS. Meat Cooler ID - DBVenous doppler leg, [id number] 15:52:54Ejection FractionSLEH ECHO HEARTLAB [facility]ON [facility] Left Impression1. There is partial echolucent [...] Study 08/28/2020 NEELAM Age 60 Visit Number [id number] Gender Female Accession Number [id number] Date of 1960 Referring [facility] Room Number 2546 Physician Elizabethaz Purification Supervisor Jarad Mayberry Interpreting Vivek Benitez MD RVT [...] in cm/s ; Diameters are measured in [facility] Venous doppler leg, [id number] 15:52:54[facility] Left Impression1. There is partial echolucent [...] Study 08/28/2020 NEELAM Age 60 Visit Number [id number] Gender Female Accession Number [id number] Date of 1960 Referring Tricia Mary Room Number 5476 Physician Richard Purification Supervisor Jarad Mayberry Interpreting Vivek Benitez MD RVT [...] in cm/s ; Diameters are measured in [facility] Venous doppler leg, [id number] 15:52:54Ejection FractionSLE ECHO HEARTLAB [facility] Left Impression1. There is partial echolucent [...] Study 08/28/2020 NEELAM Age 60 Visit Number [id number] Gender Female Accession Number [id number] Date of 1960 Referring Tricia Room Number 7916 Physician Richard Purification Supervisor Jarad Mayberry Interpreting Vivek Benitez MD RVT [...] cm/s ; Diameters are measured in [facility]-COV2/RT-PCR (HS & REF LABS)2020-08-28 12:32:00 Test Item Value Reference Range Interpretation Comments SARS-COV2/RT-PCR (test Negative Not Detected, Negative, code = 5815118) See external report for linked test SARS-COV-2 PERFORMING LAB [facility] (test code = 9531467) Negative result for this test determines that [...] 564(g) of the Act.Fact Sheet for Healthcare Providers:https://www.[employer]/sites/default/files/product/documents/Fact_Shee q_SF_Sjlvyjrnp_Vvre_DVOZ-HxV-8.pdfFact Sheet for Healthcare Patients:https://www.[employer].com/sites/default/files/product/ documents/Vnqy_Obgmt_Rmycgqqk_Feyy_VIQK-BvB-9.pdfPerforming Laboratory:[facility], [place] [address]DBESOQUYDBF TIME/INR 2020-08-28 05:15:00 Test Item Value Reference Range Interpretation Comments PROTIME (BEAKER) 16.1 seconds 11.9-14.2 H (test code = 759) INR (BEAKER) (test 1.31 See_Comment [Automat ed message] code = 370) The system Sense Platform generated this result transmitted ref erence range: [...] 0-0 (BEAKER) (test code = 413) PROTHROMBIN TIME/[id number] 16:24:00 Test Item Value Reference Range Interpretation Comments PROTIME (BEAKER) 14.7 seconds 11.9-14.2 H (test code = 759) INR (BEAKER) (test 1.20 See_Comment [Automat ed message] code = 370) The system Sense Platform generated this result transmitted ref erence range: [...] 0-0 (BEAKER) (test code = 413) PROTHROMBIN TIME/[id number] 14:53:00 Test Item Value Reference Range Interpretation Comments PROTIME (BEAKER) 10.1 seconds 9.8-12.0 (test code = 759) INR (BEAKER) (test 0.94 See_Comment [Automat ed message] code = 370) The system [employer] Platform generated this result transmitted ref erence range: [...] 0-0 (BEAKER) (test code = 413) PROTHROMBIN TIME/[id number] 19:23:00 Test Item Value Reference Range Interpretation Comments PROTIME (BEAKER) 15.0 seconds 11.9-14.2 H (test code = 759) INR (BEAKER) (test 1.20 See_Comment [Automat ed message] code = 370) The system [employer] Platform generated this result transmitted ref erence range: [...] 0-1 PERCENT (BEAKER) (test code = 2801) [id number] 07:38:00 Test Item Value Reference Range Interpretation Comments PTT (test code = 62.8 See_Comment H [Automated message] 37453-4) The system [employer] Platform generated this result transmitted ref erence range: 22.5 - 3 6.0 seconds. The reference range was not used to int erpret this result as normal/abnormal . Lab Interpretation (test Abnormal code = 13628-7) [facility] 07:38:00 Test Item Value Reference Range Interpretation Comments PTT (test code = 62.8 See_Comment H [Automated message] 70145-5) The system [employer] Platform generated this result transmitted ref erence range: 22.5 - 3 6.0 seconds. The reference range was not used to int erpret this result as normal/abnormal . Lab Interpretation (test Abnormal code = 08262-8) [facility] 07:38:00 Test Item Value Reference Range Interpretation Comments PTT (test code = 62.8 See_Comment H [Automated message] 43353-8) The system [employer] Platform generated this result transmitted ref erence range: 22.5 - 3 6.0 seconds. The reference range was not used to int erpret this result as normal/abnormal . Lab Interpretation (test Abnormal code = 01324-7) [facility]APTT2021-[facility] 07:38:00 Test Item Value Reference Range [...] WBC 0-0 (BEAKER) (test code = 413) [id number] 23:09:00 Test Item Value Reference Range Interpretation Comments PARTIAL THROMBOPLASTIN TIME 48.3 seconds 22.5-36.0 H (BEAKER) (test code = 760) [id number] 12:59:00 Test Item Value Reference Range Interpretation Comments PARTIAL THROMBOPLASTIN TIME 33.5 seconds 22.5-36.0 (BEAKER) (test code = 760) Basic Metabolic [id number] 06:56:00 Test Item Value Reference Range Interpretation Comments Sodium (test code = 140 meq/L 250-895 1992-2) Potassium (test 4.4 meq/L 3.5-5.1 code = 2823-3) Chloride (test code 100 meq/L 98-107 = 2075-0) CO2 (test code = 27 meq/L -29 8-9) BUN (test code = 13 mg/dL 7- 3094-0) Creatinine (test 0.81 mg/dL 0.57-1.25 code = 2160-0) Glucose (test code 101 mg/dL 70-105 = 2345-7) Calcium (test code 9.7 mg/dL 8.4-10.2 = 05153-4) EGFR (test code = 87 mL/min/1.[place] [address]-6) NOT ACCURATE CREATININE CLEARANCE IN PREDICTING GLOMERULAR FILTRATION RATE . ESTIMATED GFR I S NOT APPLICABLE FOR DIALYSIS PATIEN TS. LOPEZ (test code = Meat Cooler ID - JESSICA) [facility]Baselect [facility] Metabolic [id number] 06:56:00 Test Item Value Reference Range Interpretation Comments Sodium (test code = 140 meq/L 793-016 1576-2) Potassium (test 4.4 meq/L 3.5-5.1 code = 2823-3) Chloride (test code 100 meq/L 98-107 = 2075-0) CO2 (test code = 27 meq/L 2027-11) BUN (test code = 13 mg/dL 10-04 3094-0) Creatinine (test 0.81 mg/dL 0.57-1.25 code = 2160-0) Glucose (test code 101 mg/dL 70-105 = 2345-7) Calcium (test code 9.7 mg/dL 8.4-10.2 = 94863-5) EGFR (test code = 87 mL/min/1.[place] [address]-7) NOT ACCURATE CREATININE CLEARANCE IN PREDICTING GLOMERULAR FILTRATION RATE . ESTIMATED GFR I S NOT APPLICABLE FOR DIALYSIS PATIEN TS. JESSICA (test code = Meat Cooler ID - JESSICA) [facility] [place] [facility] Metabolic [id number] 06:56:00 Test Item Value Reference Range Interpretation Comments Sodium (test code = 140 meq/L 043-787 0470-2) Potassium (test 4.4 meq/L 3.5-5.1 code = 2823-3) Chloride (test code 100 meq/L 98-107 = 2075-0) CO2 (test code = 27 meq/L 2027-11) BUN (test code = 13 mg/dL 10-04 3094-0) Creatinine (test 0.81 mg/dL 0.57-1.25 code = 2160-0) Glucose (test code 101 mg/dL 70-105 = 2345-7) Calcium (test code 9.7 mg/dL 8.4-10.2 = 83529-4) EGFR (test code = 87 mL/min/1.[place] [address]-0) NOT ACCURATE CREATININE CLEARANCE IN PREDICTING GLOMERULAR FILTRATION RATE . ESTIMATED GFR I S NOT APPLICABLE FOR DIALYSIS PATIEN TS. JESSICA (test code = Meat Cooler ID - JESSICA) [facility] METABOLIC [id number] 06:56:00 Test Item Value Reference Range Interpretation [...] S NOT APPLICABLE FOR DIALYSIS PATIEN TS. Meat Cooler ID - BALA MCBC (HEMOGRAM ONLY)2020-08-24 06:41:00 [...] WBC 0-0 (BEAKER) (test code = 413) [id number] 06:32:00 Test Item Value Reference Range Interpretation Comments PARTIAL THROMBOPLASTIN TIME 34.7 seconds 22.5-36.0 (BEAKER) (test code = 760) [id number] 22:03:00 Test Item Value Reference Range Interpretation Comments PARTIAL THROMBOPLASTIN TIME 36.0 seconds 22.5-36.0 (BEAKER) (test code = 760) [id number] 14:36:00 Test Item Value Reference Range Interpretation [...] (BEAKER) (test code = 413) BASIC METABOLIC [id number] 05:47:00 Test Item Value Reference Range Interpretation [...] S NOT APPLICABLE FOR DIALYSIS PATIEN TS. Meat Cooler ID - BAL [facility] (HEMOGRAM ONLY)2020-08-23 05:19:00 Test Item Value [...] = 413) U/S, EXTREMITY, LOWER, LEFT (NON-VASCULAR) [id number] 15:15:00Please obtain biopsy of inguinal mass. Pending discharge Reason for exam:->Large left inguinal mass / lymphadenopathy [facility] 1960 Sex: [...] MDReport Verified Date/Time: 08/22/2020 15:15:14 Reading Location: [address] Consult Reading Room US extremity non-vascular limited [id number] 15:15:00 Interface, External Ris In - 08/22/2020 [...] MDReport Verified Date/Time: 08/22/2020 15:15:14 Reading Location: [address] Consult Reading Room Electronically signed by: Cassandra QUIJANO 08/22/2020 03:15 [facility] [id number] 15:15:00Interface, External Ris In - 08/22/2020 3:17 [...] Muniz Verified Date/Time: 08/22/2020 15:15:14 Reading Location: [address] Consult Reading Room Electronically signed by: Cassandra QUIJANO 08/22/2020 03:15 [facility] vascular [facility] [id number] 15:15:00Interface, External Ris In - 08/22/2020 3:17 [...] Muniz Verified Date/Time: 08/22/2020 15:15:14 Reading Location: [address] Consult Reading Room Electronically signed by: Cassandra QUIJANO 08/22/2020 03:15 [facility]OLIC [id number] 06:22:00 Test Item Value Reference Range Interpretation [...] S NOT APPLICABLE FOR DIALYSIS PATIEN TS. Meat Cooler ID - BALA [facility]BC (HEMOGRAM ONLY)2020-08-22 05:57:00 [...] (BEAKER) (test code = 413) COMPREHENSIVE METABOLIC [id number] 07:02:00 Test Item Value Reference Range Interpretation [...] S NOT APPLICABLE FOR DIALYSIS PATIEN TS. Meat Cooler ID - BALA MPROTHROMBIN TIME/[id number] 06:42:00 Test Item Value Reference Range Interpretation Comments PROTIME (BEAKER) 13.7 seconds 11.9-14.2 (test code = 759) INR (BEAKER) (test 1.08 See_Comment [Automat ed message] code = 370) The system [employer] Platform generated this result transmitted ref erence range: [...] 413) RAD, SPINE, LUMBAR, 2 OR 3 [id number] 20:22:00Reason for exam:->low back pain, [facility] 1960 [...] LEFT 2020-08-20 20:22:00Reason for exam:->knee pain, fall [facility] NEELAM : 1960 [...] 2-3 VIEWS, LEFT, TO INCL PELVIS WHEN [id number] 20:22:00Reason for exam:->hip pain, fall [facility] NEELAM : 1960 [...] Date/Time: 08/20/2020 20:22:11 XR hip 2 views [id number] 20:22:00Interface, External Ris In - 08/20/2020 8:24 [...] Signed: Prateek Fungort Verified Date/Time: 08/20/2020 20:22:11 [facility] [id number] 20:22:00Interface, External Ris In - 08/20/2020 8:24 [...] Prateek Fung MDRcarylort Verified Date/Time: 08/20/2020 20:22:11 [facility] left 2020-08-20 [...] Prateek Fung MDReport Verified Date/Time: 08/20/2020 20:22:11 [facility] lumbar 2 or 3 [id number] 20:22:00Interface, External Ris In - 08/20/2020 8:24 [...] Prateek Fung MDReport Verified Date/Time: 08/20/2020 20:22:11 [facility] 2 or 3 [id number] 20:22:00Interface, External Ris In - 08/20/2020 8:24 [...] Prateek Fung MDReport Verified Date/Time: 08/20/2020 20:22:11 [facility] 2 or 3 [id number] 20:22:00Interface, External Ris In - 08/20/2020 8:24 [...] Prateek Fung MDReport Verified Date/Time: 08/20/2020 20:22:11 [facility] 3 [facility] left 2020-08-20 [...] Osseous degenerative changes discussed above. Signed: Prateek Fnug MDReport Verified Date/Time: 08/20/2020 20:22:11 [facility] views [id number] 20:22:00Interface, External Ris In - 08/20/2020 8:24 [...] Prateek Fung MDRcarylort Verified Date/Time: 08/20/2020 20:22:11 [facility] left 2020-08-20 [...] Prateek Fung MDReport Verified Date/Time: 08/20/2020 20:22:11 [facility] CenterLactate dehydrogenase (LDH)2020-08-20 15:47:00 Test Item Value Reference Range Interpretation Comments LDH (test code = 2532-0) 228 U/L 125-220 H JESSICA (test code = JESSICA) Meat Cooler ID - DB Lab Interpretation (test Abnormal code = 62632-8) [facility] 15:47:00 Test Item Value Reference Range Interpretation Comments Magnesium (test code = 2.2 mg/dL 1.6-2.6 02961-5) JESSICA (test code = JESSICA) Meat Cooler ID - DB Lab Interpretation (test Normal code = 54219-8) [facility] HospitalPhosphorus2021-06-[facility] 15:47:00 Test Item Value Reference Range Interpretation Comments Phosphorus (test code = 3.1 mg/dL 2.3-4.7 2777-1) JESSICA (test code = JESSICA) Meat Cooler ID - DB Lab Interpretation (test Normal code = 53880-9) [facility] HospitalUric [id number] 15:47:00 Test Item Value Reference Range Interpretation Comments Uric Acid (test code = 5.1 mg/dL 2.6-7.2 3084-1) JESSICA (test code = JESSICA) Meat Cooler ID - DB Lab Interpretation (test Normal code = 86211-7) [facility] HospitalLactate dehydrogenase (LDH)2020-08-20 15:47:00 Test Item Value Reference Range Interpretation Comments LDH (test code = 2532-0) 228 U/L 125-220 H JESSICA (test code = JESSICA) Meat Cooler ID - DB Lab Interpretation (test Abnormal code = 82018-1) [facility]esium2021-06-06 15:47:00 Test Item Value Reference Range Interpretation Comments Magnesium (test code = 2.2 mg/dL 1.6-2.6 13102-7) JESSICA (test code = JESSICA) Meat Cooler ID - DB Lab Interpretation (test Normal code = 19504-9) [facility]Ph[facility]2021-[facility] 15:47:00 Test Item Value Reference Range Interpretation Comments Phosphorus (test code = 3.1 mg/dL 2.3-4.7 2777-1) JESSICA (test code = JESSICA) Meat Cooler ID - DB Lab Interpretation (test Normal code = 70229-3) [facility] [id number] 15:47:00 Test Item Value Reference Range Interpretation Comments Uric Acid (test code = 5.1 mg/dL 2.6-7.2 3084-1) JESSICA (test code = JESSICA) Meat Cooler ID - DB Lab Interpretation (test Normal code = 51098-2) [facility] HospitalLactate dehydrogenase (LDH)2020-08-20 15:47:00 Test Item Value Reference Range Interpretation Comments LDH (test code = 2532-0) 228 U/L 125-220 H JESSICA (test code = JESSICA) Meat Cooler ID - DB Lab Interpretation (test Abnormal code = 54374-7) [facility]Magnesium2021-06-06 15:47:00 Test Item Value Reference Range Interpretation Comments Magnesium (test code = 2.2 mg/dL 1.6-2.6 35836-8) JESSICA (test code = JESSICA) Meat Cooler ID - DB Lab Interpretation (test Normal code = 73994-1) [facility]Ph[facility]2021-[facility] 15:47:00 Test Item Value Reference Range Interpretation Comments Phosphorus (test code = 3.1 mg/dL 2.3-4.7 2777-1) JESSICA (test code = JESSICA) Meat Cooler ID - DB Lab Interpretation (test Normal code = 58284-7) [facility] [id number] 15:47:00 Test Item Value Reference Range Interpretation Comments Uric Acid (test code = 5.1 mg/dL 2.6-7.2 3084-1) JESSICA (test code = JESSICA) Meat Cooler ID - DB Lab Interpretation (test Normal code = 26687-8) [facility] HospitalCOMPREHENSIVE METABOLIC [id number] 15:47:00 Test Item Value Reference Range Interpretation [...] S NOT APPLICABLE FOR DIALYSIS PATIEN TS. Meat Cooler ID - [id number] 15:47:00 Test Item Value Reference Range Interpretation Comments MAGNESIUM (BEAKER) (test code = 2.2 mg/dL 1.6-2.6 627) Meat Cooler ID - [id number] 15:47:00 Test Item Value Reference Range Interpretation Comments PHOSPHORUS (BEAKER) (test code = 3.1 mg/dL 2.3-4.7 604) Meat Cooler ID - DBURIC [id number] 15:47:00 Test Item Value Reference Range Interpretation Comments URIC ACID (BEAKER) (test code = 5.1 mg/dL 2.6-7.2 773) Meat Cooler ID - DBLACTATE DEHYDROGENASE (LDH)[id number] 15:47:00 Test Item Value Reference Range Interpretation Comments LACTATE DEHYDROGENASE (BEAKER) (test 228 U/L 125-220 H code = 635) Meat Cooler ID - DBCBC W/PLT COUNT & AUTO [id number] 15:26:00 Test Item Value Reference Range Interpretation [...] (test code = 2801) AFB CULTURE + [id number] 17:40:00 Test Item Value Reference Range Interpretation Comments CULTURE (BEAKER) (test No acid-fast bacilli code = 1095) isolated in 42 days AFB SMEAR (BEAKER) No acid fast bacilli (test code = 994) seen AFB CULTURE + [id number] 16:47:00 Test Item Value Reference Range Interpretation Comments CULTURE (BEAKER) (test No acid-fast bacilli code = 1095) isolated in 42 days AFB SMEAR (BEAKER) No acid fast bacilli (test code = 994) seen FUNGUS CULTURE + [id number] 17:06:00 Test Item Value Reference Range Interpretation Comments CULTURE (BEAKER) (test No fungus isolated in code = 1095) 28 days FUNGUS SMEAR (BEAKER) No fungi seen (test code = 1406) FUNGUS CULTURE + [id number] 20:59:00 Test Item Value Reference Range Interpretation Comments CULTURE (BEAKER) (test No fungus isolated in code = 1095) 28 days FUNGUS SMEAR (BEAKER) No fungi seen (test code = 1406) POCT-GLUCOSE [id number] 17:00:00 Test Item Value Reference Range Interpretation Comments POC-GLUCOSE METER 193 mg/dL 70-110 H TESTED AT [facility] [address] (BEAKER) (test code [facility] = 1538) [place] [address] POCT-GLUCOSE [id number] 11:50:00 Test Item Value Reference Range Interpretation Comments POC-GLUCOSE METER 185 mg/dL 70-110 H TESTED AT [facility] [address] (BEAKER) (test code [facility] = 1538) [place] [address] CBC W/PLT COUNT & AUTO [id number] 09:22:00 Test Item Value Reference Range Interpretation [...] (BEAKER) (test code = 2801) BASIC METABOLIC [id number] 09:21:00 Test Item Value Reference Range Interpretation [...] NOT APPLICABLE FOR DIALYSIS PATIEN TS. C-REACTIVE [id number] 09:21:00 Test Item Value Reference Range Interpretation Comments C-REACTIVE PROTEIN (BEAKER) (test 2.31 mg/dL 0.00-0.50 H code = 676) HEPATIC FUNCTION [id number] 09:20:00 Test Item Value Reference Range Interpretation [...] code = 47 U/L 6-50 347) POCT-GLUCOSE [id number] 06:53:00 Test Item Value Reference Range Interpretation Comments POC-GLUCOSE METER 102 mg/dL 70-110 TESTED AT [facility] [address] (BEAKER) (test code [facility] = 1538) [place] [address] POCT-GLUCOSE [id number] 21:32:00 Test Item Value Reference Range Interpretation Comments POC-GLUCOSE METER 212 mg/dL 70-110 H TESTED AT [facility] [address] (BEAKER) (test code [facility] = 1538) [place] [address] POCT-GLUCOSE [id number] 16:26:00 Test Item Value Reference Range Interpretation Comments POC-GLUCOSE METER 170 mg/dL 70-[address] [place] [address] [address] (BEAKER) (test code [facility] = 1538) [place] [address] POCT-GLUCOSE [id number] 05:53:00 Test Item Value Reference Range Interpretation Comments POC-GLUCOSE METER 90 mg/dL 70-[address] [place] [address] [address] (BEAKER) (test code = [facility] 1538) [place] [address] POCT-GLUCOSE [id number] 21:52:00 Test Item Value Reference Range Interpretation Comments POC-GLUCOSE METER 130 mg/dL 70-110 H TESTED AT [facility] [address] (BEAKER) (test code [facility] = 1538) [place] [address] POCT-GLUCOSE [id number] 17:16:00 Test Item Value Reference Range Interpretation Comments POC-GLUCOSE METER 177 mg/dL 70-110 H TESTED AT [facility] [address] (BEAKER) (test code [facility] = 1538) [place] [address] [id number] 16:02:00 Test Item Value Reference Range Interpretation Comments POTASSIUM (BEAKER) (test code = 3.9 meq/L 3.5-5.5 379) POCT-GLUCOSE [id number] 12:10:00 Test Item Value Reference Range Interpretation Comments POC-GLUCOSE METER 176 mg/dL 70-110 H TESTED AT [facility] [address] (BEAKER) (test code [facility] = 1538) [place] [address] POCT-GLUCOSE [id number] 05:57:00 Test Item Value Reference Range Interpretation Comments POC-GLUCOSE METER 113 mg/dL 70-[address] [place] [address] [address] (BEAKER) (test code [facility] = 1538) [place] [address] POCT-GLUCOSE [id number] 21:53:00 Test Item Value Reference Range Interpretation Comments POC-GLUCOSE METER 160 mg/dL 70-110 H TESTED [facility] [address] (BEAKER) (test code [facility] = 1538) [place] [address] POCT-GLUCOSE [id number] 16:49:00 Test Item Value Reference Range Interpretation Comments POC-GLUCOSE METER 158 mg/dL 70-110 H TESTED AT [facility] [address] (BEAKER) (test code [facility] = 1538) [place] [address] POCT-GLUCOSE [id number] 12:14:00 Test Item Value Reference Range Interpretation Comments POC-GLUCOSE METER 162 mg/dL 70-110 H TESTED AT [facility] [address] (BEAKER) (test code [facility] = 1538) [place] [address] BASIC METABOLIC [id number] 04:57:00 Test Item Value Reference Range Interpretation [...] PATIEN TS. CBC W/PLT COUNT & AUTO [id number] 04:28:00 Test Item Value Reference Range Interpretation [...] PERCENT (BEAKER) (test code = 2801) POCT-GLUCOSE [id number] 20:44:00 Test Item Value Reference Range Interpretation Comments POC-GLUCOSE METER 168 mg/dL 70-110 H TESTED AT [facility] [address] (BEAKER) (test code [facility] = 1538) [place] [address] POCT-GLUCOSE [id number] 16:10:00 Test Item Value Reference Range Interpretation Comments POC-GLUCOSE METER 228 mg/dL 70-110 H TESTED AT [facility] [address] (BEAKER) (test code [facility] = 1538) [place] [address] POCT-GLUCOSE [id number] 13:15:00 Test Item Value Reference Range Interpretation Comments POC-GLUCOSE METER 182 mg/dL 70-110 H TESTED AT [facility] [address] (BEAKER) (test code [facility] = 1538) [place] [address] POCT-GLUCOSE [id number] 06:57:00 Test Item Value Reference Range Interpretation Comments POC-GLUCOSE METER 153 mg/dL 70-110 H TESTED AT [facility] [address] (BEAKER) (test code [facility] = 1538) [place] [address] POCT-GLUCOSE [id number] 21:27:00 Test Item Value Reference Range Interpretation Comments POC-GLUCOSE METER 146 mg/dL 70-110 H TESTED AT [facility] [address] [facility] (test code [place] = 1538) [place] [address] POCT-GLUCOSE [id number] 17:17:00 Test Item Value Reference Range Interpretation Comments POC-GLUCOSE METER 134 mg/dL 70-110 H TESTED AT [facility] [address] ([facility]) (test code [facility] = 1538) [place] [address] POCT-GLUCOSE [id number] 13:49:00 Test Item Value Reference Range Interpretation Comments POC-GLUCOSE METER 177 mg/dL 70-110 H TESTED AT [facility] [address] (BEAKER) (test code [facility] = 1538) [place] [address] POCT-GLUCOSE [id number] 05:34:00 Test Item Value Reference Range Interpretation Comments POC-GLUCOSE METER 118 mg/dL 70-110 H TESTED AT [facility] [address] (BEAKER) (test code [facility] = 1538) [place] [address] POCT-GLUCOSE [id number] 21:14:00 Test Item Value Reference Range Interpretation Comments POC-GLUCOSE METER 149 mg/dL 70-110 H TESTED AT [facility] [address] (BEAKER) (test code [facility] = 1538) [place] [address] POCT-GLUCOSE [id number] 17:44:00 Test Item Value Reference Range Interpretation Comments POC-GLUCOSE METER 132 mg/dL 70-110 H TESTED AT [facility] [address] (BEAKER) (test code [place] [facility] = 1538) [place] [address] POCT-GLUCOSE [id number] 12:21:00 Test Item Value Reference Range Interpretation Comments POC-GLUCOSE METER 168 mg/dL 70-110 H TESTED AT [facility] [address] (BEAKER) (test code [facility] = 1538) [place] [address] [id number] 05:19:00 Test Item Value Reference Range Interpretation Comments PARTIAL THROMBOPLASTIN TIME 84.3 seconds 23.2-36.1 H (BEAKER) (test code = 760) POCT-GLUCOSE [id number] 20:50:00 Test Item Value Reference Range Interpretation Comments POC-GLUCOSE METER 147 mg/dL 70-[address] [place] [address] [address] (BEAKER) (test code [facility] = 1538) [place] [address] POCT-GLUCOSE [id number] 17:19:00 Test Item Value Reference Range Interpretation Comments POC-GLUCOSE METER 238 mg/dL 70-110 H TESTED AT [facility] [address] (BEAKER) (test code [place] = 1538) [place] [address] [id number] 15:09:00 Test Item Value Reference Range Interpretation Comments PARTIAL THROMBOPLASTIN TIME 74.8 seconds 23.2-36.1 H (BEAKER) (test code = 760) POCT-GLUCOSE [id number] 11:57:00 Test Item Value Reference Range Interpretation Comments POC-GLUCOSE METER 146 mg/dL 70-110 H TESTED AT [facility] [address] (BEAKER) (test code [facility] = 1538) [place] [address] POCT-GLUCOSE [id number] 05:37:00 Test Item Value Reference Range Interpretation Comments POC-GLUCOSE METER 139 mg/dL 70-110 H TESTED AT [facility] [address] (BEAKER) (test code [place] [facility] = 1538) [place] [address] BASIC METABOLIC [id number] 04:04:00 Test Item Value Reference Range Interpretation [...] S NOT APPLICABLE FOR DIALYSIS PATIJUNAID JEAN. [id number] 04:02:00 Test Item Value Reference Range Interpretation Comments PARTIAL THROMBOPLASTIN TIME 76.5 seconds 23.2-36.1 H (BEAKER) (test code = 760) CBC W/PLT COUNT & AUTO [id number] 03:41:00 Test Item Value Reference Range Interpretation [...] PERCENT (BEAKER) (test code = 2801) POCT-GLUCOSE [id number] 22:12:00 Test Item Value Reference Range Interpretation Comments POC-GLUCOSE METER 247 mg/dL 70-110 H TESTED AT [facility] [address] (BEAKER) (test code [facility] = 1538) [place] [address] [id number] 21:11:00 Test Item Value Reference Range Interpretation Comments PARTIAL THROMBOPLASTIN TIME 62.4 seconds 23.2-36.1 H (BEAKER) (test code = 760) [id number] 12:45:00 Test Item Value Reference Range Interpretation Comments PARTIAL THROMBOPLASTIN TIME 101.2 seconds 23.2-36.1 H (BEAKER) (test code = 760) POCT-GLUCOSE [id number] 11:48:00 Test Item Value Reference Range Interpretation Comments POC-GLUCOSE METER 259 mg/dL 70-110 H TESTED AT [facility] [address] (BEAKER) (test code [facility] = 1538) [place] [address] POCT-GLUCOSE [id number] 05:38:00 Test Item Value Reference Range Interpretation Comments POC-GLUCOSE METER 121 mg/dL 70-110 H TESTED AT [facility] [address] (BEAKER) (test code [place] [facility] = 1538) [place] [address] [id number] 05:33:00 Test Item Value Reference Range Interpretation Comments PARTIAL THROMBOPLASTIN TIME 108.5 seconds 23.2-36.1 H (BEAKER) (test code = 760) POCT-GLUCOSE [id number] 20:59:00 Test Item Value Reference Range Interpretation Comments POC-GLUCOSE METER 197 mg/dL 70-110 H TESTED AT [facility] [address] (BEAKER) (test code [place] = 1538) [place] [address] POCT-GLUCOSE [id number] 16:47:00 Test Item Value Reference Range Interpretation Comments POC-GLUCOSE METER 150 mg/dL 70-110 H TESTED AT [facility] [address] (BEAKER) (test code [place] [facility] = 1538) [place] [address] [id number] 15:21:00 Test Item Value Reference Range Interpretation Comments PARTIAL THROMBOPLASTIN TIME 79.9 seconds 23.2-36.1 H (BEAKER) (test code = 760) POCT-GLUCOSE [id number] 12:52:00 Test Item Value Reference Range Interpretation Comments POC-GLUCOSE METER 207 mg/dL 70-110 H TESTED AT [facility] [address] (BEAKER) (test code [facility] = 1538) [place] [address] [id number] 09:17:00 Test Item Value Reference Range Interpretation Comments PARTIAL THROMBOPLASTIN TIME 95.7 seconds 23.2-36.1 H (BEAKER) (test code = 760) BASIC METABOLIC [id number] 02:36:00 Test Item Value Reference Range Interpretation [...] S NOT APPLICABLE FOR DIALYSIS PATIEN TED. [id number] 02:26:00 Test Item Value Reference Range Interpretation Comments PARTIAL THROMBOPLASTIN TIME 104.6 seconds 23.2-36.1 H (BEAKER) (test code = 760) CBC W/PLT COUNT & AUTO [id number] 02:18:00 Test Item Value Reference Range Interpretation [...] PERCENT (BEAKER) (test code = 2801) POCT-GLUCOSE [id number] 22:17:00 Test Item Value Reference Range Interpretation Comments POC-GLUCOSE METER 211 mg/dL 70-110 H TESTED AT [facility] [address] (BEAKER) (test code [facility] = 1538) [place] [address] [id number] 20:16:00 Test Item Value Reference Range Interpretation Comments PARTIAL THROMBOPLASTIN TIME 107.2 seconds 23.2-36.1 H (BEAKER) (test code = 760) POCT-GLUCOSE [id number] 16:24:00 Test Item Value Reference Range Interpretation Comments POC-GLUCOSE METER 167 mg/dL 70-110 H TESTED AT [facility] [address] (BEAKER) (test code [facility] = 1538) [place] [address] [id number] 14:17:00 Test Item Value Reference Range Interpretation Comments PARTIAL THROMBOPLASTIN TIME 96.3 seconds 23.2-36.1 H (BEAKER) (test code = 760) POCT-GLUCOSE [id number] 11:40:00 Test Item Value Reference Range Interpretation Comments POC-GLUCOSE METER 190 mg/dL 70-110 H TESTED AT [facility] [address] (BEAKER) (test code [facility] = 1538) [place] [address] [id number] 07:52:00 Test Item Value Reference Range Interpretation Comments PARTIAL THROMBOPLASTIN TIME 58.0 seconds 23.2-36.1 H (BEAKER) (test code = 760) BASIC METABOLIC [id number] 06:09:00 Test Item Value Reference Range Interpretation [...] S NOT APPLICABLE FOR DIALYSIS PATIEN TS. [id number] 05:53:00 Test Item Value Reference Range Interpretation Comments PARTIAL THROMBOPLASTIN TIME 138.1 seconds 23.2-36.1 H (BEAKER) (test code = 760) CBC W/PLT COUNT & AUTO [id number] 05:45:00 Test Item Value Reference Range Interpretation [...] GRANULOCYTES-RELATIVE PERCENT (BEAKER) (test code = 2801) [id number] 23:56:00 Test Item Value Reference Range Interpretation Comments PARTIAL THROMBOPLASTIN TIME 96.6 seconds 23.2-36.1 H (BEAKER) (test code = 760) POCT-GLUCOSE [id number] 21:22:00 Test Item Value Reference Range Interpretation Comments POC-GLUCOSE METER 160 mg/dL 70-110 H TESTED AT [facility] [address] (BEAKER) (test code [facility] = 1538) [place] [address] POCT-GLUCOSE [id number] 17:27:00 Test Item Value Reference Range Interpretation Comments POC-GLUCOSE METER 151 mg/dL 70-110 H TESTED AT [facility] [address] (BEAKER) (test code [facility] = 1538) [place] [address] [id number] 16:40:00 Test Item Value Reference Range Interpretation Comments PARTIAL THROMBOPLASTIN TIME 40.0 seconds 23.2-36.1 H (BEAKER) (test code = 760) POCT-GLUCOSE [id number] 13:43:00 Test Item Value Reference Range Interpretation Comments POC-GLUCOSE METER 164 mg/dL 70-110 H TESTED AT [facility] [address] (BEAKER) (test code [facility] = 1538) [place] [address] [id number] 13:34:00 Test Item Value Reference Range Interpretation Comments PARTIAL THROMBOPLASTIN TIME 141.6 seconds 23.2-36.1 H (BEAKER) (test code = 760) OCCULT BLOOD, [id number] 13:20:00 Test Item Value Reference Range Interpretation Comments FECAL OCCULT BLOOD (BEAKER) (test Negative Negative code = 618) BASIC METABOLIC [id number] 12:13:00 Test Item Value Reference Range Interpretation [...] APPLICABLE FOR DIALYSIS PATIEN TS. HEPATIC FUNCTION [id number] 12:13:00 Test Item Value Reference Range Interpretation [...] 6-50 347) CBC W/PLT COUNT & AUTO [id number] 11:47:00 Test Item Value Reference Range Interpretation [...] GRANULOCYTES-RELATIVE PERCENT (BEAKER) (test code = 2801) [id number] 06:33:00 Test Item Value Reference Range Interpretation Comments PARTIAL THROMBOPLASTIN TIME 102.3 seconds 23.2-36.1 H (BEAKER) (test code = 760) POCT-GLUCOSE [id number] 05:47:00 Test Item Value Reference Range Interpretation Comments POC-GLUCOSE METER 151 mg/dL 70-110 H TESTED AT [facility] [address] (BEAKER) (test code [facility] = 1538) [place] [address] BASIC METABOLIC [id number] 01:16:00 Test Item Value Reference Range Interpretation [...] I S NOT APPLICABLE FOR DIALYSIS PATIJUNAID TS. [id number] 01:06:00 Test Item Value Reference Range Interpretation Comments PARTIAL THROMBOPLASTIN TIME 46.8 seconds 23.2-36.1 H (BEAKER) (test code = 760) [id number] 23:18:00 Test Item Value Reference Range Interpretation Comments PARTIAL THROMBOPLASTIN TIME 177.9 seconds 23.2-36.1 HH (BEAKER) (test code = 760) POCT-GLUCOSE [id number] 22:05:00 Test Item Value Reference Range Interpretation Comments POC-GLUCOSE METER 204 mg/dL 70-110 H TESTED AT [facility] [address] (BEAKER) (test code [facility] = 1538) [place] [address] [id number] 16:35:00 Test Item Value Reference Range Interpretation Comments PARTIAL THROMBOPLASTIN TIME 47.9 seconds 23.2-36.1 H (BEAKER) (test code = 760) POCT-GLUCOSE [id number] 16:33:00 Test Item Value Reference Range Interpretation Comments POC-GLUCOSE METER 167 mg/dL 70-110 H TESTED AT [facility] [address] (BEAKER) (test code [facility] = 1538) [place] [address] [id number] 15:11:00 Test Item Value Reference Range Interpretation Comments PARTIAL THROMBOPLASTIN TIME 198.7 seconds 23.2-36.1 HH (BEAKER) (test code = 760) POCT-GLUCOSE [id number] 12:08:00 Test Item Value Reference Range Interpretation Comments POC-GLUCOSE METER 166 mg/dL 70-110 H TESTED AT [facility] [address] (BEAKER) (test code [facility] = 1538) [place] [address] [id number] 07:27:00 Test Item Value Reference Range Interpretation Comments PARTIAL THROMBOPLASTIN TIME 65.6 seconds 23.2-36.1 H (BEAKER) (test code = 760) [id number] 05:59:00 Test Item Value Reference Range Interpretation Comments PARTIAL THROMBOPLASTIN TIME 156.1 seconds 23.2-36.1 HH (BEAKER) (test code = 760) BASIC METABOLIC [id number] 05:54:00 Test Item Value Reference Range Interpretation [...] NOT APPLICABLE FOR DIALYSIS PATIEN TS. POCT-GLUCOSE [id number] 05:45:00 Test Item Value Reference Range Interpretation Comments POC-GLUCOSE METER 145 mg/dL 70-110 H TESTED AT [facility] [address] (BEAKER) (test code [facility] = 1538) [place] [address] CBC W/PLT COUNT & AUTO [id number] 05:36:00 Test Item Value Reference Range Interpretation [...] PERCENT (BEAKER) (test code = 2801) POCT-GLUCOSE [id number] 20:29:00 Test Item Value Reference Range Interpretation Comments POC-GLUCOSE METER 128 mg/dL 70-110 H TESTED AT [facility] [address] ([facility] (test code [facility] = 1538) [place] [address] POCT-GLUCOSE [id number] 16:58:00 Test Item Value Reference Range Interpretation Comments POC-GLUCOSE METER 160 mg/dL 70-110 H TESTED AT [facility] [address] (BEAKER) (test code [facility] = 1538) [place] [address] POCT-GLUCOSE [id number] 11:58:00 Test Item Value Reference Range Interpretation Comments POC-GLUCOSE METER 163 mg/dL 70-110 H TESTED AT [facility] [address] ([facility]) (test code [facility] = 1538) [place] [address] [id number] 05:25:00 Test Item Value Reference Range Interpretation Comments PARTIAL THROMBOPLASTIN TIME 79.6 seconds 23.2-36.1 H (BEAKER) (test code = 760) CBC W/PLT COUNT & AUTO [id number] 05:18:00 Test Item Value Reference Range Interpretation [...] GRANULOCYTES-RELATIVE PERCENT (BEAKER) (test code = 2801) [id number] 21:47:00 Test Item Value Reference Range Interpretation Comments PARTIAL THROMBOPLASTIN TIME 85.4 seconds 23.2-36.1 H (BEAKER) (test code = 760) POCT-GLUCOSE [id number] 16:24:00 Test Item Value Reference Range Interpretation Comments POC-GLUCOSE METER 189 mg/dL 70-110 H TESTED AT [facility] [address] (BEAKER) (test code [facility] = 1538) [place] [address] [id number] 13:02:00 Test Item Value Reference Range Interpretation Comments PARTIAL THROMBOPLASTIN TIME 51.8 seconds 23.2-36.1 H (BEAKER) (test code = 760) POCT-GLUCOSE [id number] 11:41:00 Test Item Value Reference Range Interpretation Comments POC-GLUCOSE METER 169 mg/dL 70-110 H TESTED AT [facility] [address] ([facility]) (test code [facility] = 1538) [place] [address] VITAMIN D, 59-[id number] 08:15:00 Test Item Value Reference Range Interpretation Comments VITAMIN D 25-OH ([facility]) (test code 5.4 ng/mL 6.6-49.9 L = 2764) Effective 12/25/2016: Reference Range ChangeNew: 6.6-49.9 ng/mL Previous: 13.0-47.8 ng/mLRecommended Vitamin D Target Range: 30.0-40.0 ng/mLPOCT-GLUCOSE [id number] 06:20:00 Test Item Value Reference Range Interpretation Comments POC-GLUCOSE METER 158 mg/dL 70-110 H TESTED AT [facility] [address] ([facility]) (test code [facility] = 1538) [place] [address] HEPATIC FUNCTION [id number] 05:45:00 Test Item Value Reference Range Interpretation Comments TOTAL PROTEIN (BEAKER) 6.5 gm/dL 6.0-8.5 Speci men markedly (test code = 770) hemolyzed ALBUMIN (BEAKER) (test 1.8 g/dL 3.5-5.0 L Speci men markedly code = 1145) hemolyzed BILIRUBIN TOTAL 1.2 mg/dL 0.1-1.3 Specimen mar kedly (BEAKER) (test code = hemoly zed 377) BILIRUBIN DIRECT 0.1 mg/dL 0.0-0.5 Specimen abeba bolandly (BEAKER) (test code = hemoly zed 706) ALKALINE PHOSPHATASE 142 U/L 30-115 H (BEAKER) (test code = 346) AST (SGOT) (BEAKER) 49 U/L 5-40 H Specimen markedly (test code = 353) hemolyzed ALT (SGPT) (BEAKER) 28 U/L 6-50 Specimen markedly (test code = 347) hemolyzed [id number] 05:30:00 Test Item Value Reference Range Interpretation Comments PARTIAL THROMBOPLASTIN TIME 63.3 seconds 23.2-36.1 H (BEAKER) (test code = 760) Prior to initiating heparinCBC W/PLT COUNT & AUTO [id number] 05:23:00 Test Item Value Reference Range Interpretation [...] GRANULOCYTES-RELATIVE PERCENT (BEAKER) (test code = 2801) [id number] 00:59:00 Test Item Value Reference Range Interpretation Comments PARTIAL THROMBOPLASTIN TIME 62.3 seconds 23.2-36.1 H (BEAKER) (test code = 760) POCT-GLUCOSE [id number] 21:34:00 Test Item Value Reference Range Interpretation Comments POC-GLUCOSE METER 196 mg/dL 70-110 H TESTED AT [facility] [address] ([facility]) (test code [facility] = 1538) [place] [address] [id number] 18:14:00 Test Item Value Reference Range Interpretation Comments PARTIAL THROMBOPLASTIN TIME 82.3 seconds 23.2-36.1 H (BEAKER) (test code = 760) POCT-GLUCOSE [id number] 17:01:00 Test Item Value Reference Range Interpretation Comments POC-GLUCOSE METER 192 mg/dL 70-110 H TESTED AT [facility] [address] ([facility]) (test code [facility] = 1538) [place] [address] POCT-GLUCOSE [id number] 13:29:00 Test Item Value Reference Range Interpretation Comments POC-GLUCOSE METER 207 mg/dL 70-110 H TESTED AT [facility] [address] (BEAKER) (test code [facility] = 1538) [place] [address] [id number] 12:48:00 Test Item Value Reference Range Interpretation Comments PARTIAL THROMBOPLASTIN TIME 63.3 seconds 23.2-36.1 H (BEAKER) (test code = 760) CBC W/PLT COUNT & AUTO [id number] 12:25:00 Test Item Value Reference Range Interpretation [...] PERCENT (BEAKER) (test code = 2801) POCT-GLUCOSE [id number] 06:40:00 Test Item Value Reference Range Interpretation Comments POC-GLUCOSE METER 166 mg/dL 70-110 H TESTED AT [facility] [address] ([facility]) (test code [facility] = 1538) [place] [address] BUN AND [id number] 06:07:00 Test Item Value Reference Range Interpretation Comments BLOOD UREA NITROGEN 15 mg/dL 10-26 ([facility]) (test code = 354) CREATININE ([facility]) 0.62 mg/dL 0.50-1.20 (test code = 358) EGFR ([facility]) (test 120 mL/min/1.73 ESTIM ATED GFR IS code = 1092) sq m NOT ACCURATE CREATININE CLEARANCE IN PREDICTING GLOMERULAR FILTRATION RATE . ESTIMATED GFR I S NOT APPLICABLE FOR DIALYSIS PATIEN TS. Please draw first BUN/ S Creat with the 12 noon Amikacin Blood level draw. Thank [id number] 05:48:00 Test Item Value Reference Range Interpretation Comments PARTIAL THROMBOPLASTIN TIME 60.0 seconds 23.2-36.1 H ([facility]) (test code = 760) ANTI-NUCLEAR ANTIBODY (TAMMI)2017-11-20 00:24:00 Test Item Value Reference Range Interpretation Comments ANTI-NUCLEAR ANTIBODY (TAMMI) ([facility]) Negative Negative (test code = 418) Test performed by IFA method.Test performed by IFA method.[id number] 23:01:00 Test Item Value Reference Range Interpretation Comments PARTIAL THROMBOPLASTIN TIME 58.3 seconds 23.2-36.1 H ([facility]) (test code = 760) POCT-GLUCOSE [id number] 21:22:00 Test Item Value Reference Range Interpretation Comments POC-GLUCOSE METER 171 mg/dL 70-110 H TESTED AT [facility] [address] ([facility]) (test code [facility] = 1538) [place] [address] POCT-GLUCOSE [id number] 16:54:00 Test Item Value Reference Range Interpretation Comments POC-GLUCOSE METER 135 mg/dL 70-110 H TESTED AT [facility] [address] ([facility]) (test code [facility] = 1538) [place] [address] PERIPHERAL BLOOD SMEAR - PATHOLOGIST [id number] 15:35:00 Test Item Value Reference Range Interpretation Comments PERIPHERAL SMR REVIEW Neutrophilic ([facility]) (test code = leukocytosis with 2640) increased band forms and unremarkable WBC morphology. Normocytic anemia with unremarkable RBCs. Platelets unremarkable. No dysmorphic or blast forms seen. [id number] Nazario Becker M.D. (BEAKER) (test code = (electronic signature) 2554) (MANUAL DIFFERENTIAL)2017-11-19 15:31:00 Test Item Value Reference [...] (BEAKER) (test code = 1+ few 480) [id number] 15:21:00 Test Item Value Reference Range Interpretation Comments PARTIAL THROMBOPLASTIN TIME 39.3 seconds 23.2-36.1 H (BEAKER) (test code = 760) POCT-GLUCOSE [id number] 13:08:00 Test Item Value Reference Range Interpretation Comments POC-GLUCOSE METER 140 mg/dL 70-110 H TESTED AT [facility] [address] (BEAKER) (test code [facility] = 1538) [place] [address] CBC W/PLT COUNT & AUTO [id number] 09:33:00 Test Item Value Reference Range Interpretation [...] (BEAKER) (test code = 413) BUN AND [id number] 08:45:00 Test Item Value Reference Range Interpretation [...] 12 noon Amikacin Blood level draw. Thank [id number] 08:27:00 Test Item Value Reference Range Interpretation Comments PARTIAL THROMBOPLASTIN TIME 29.5 seconds 23.2-36.1 ([facility]) (test code = 760) POCT-GLUCOSE [id number] 04:48:00 Test Item Value Reference Range Interpretation Comments POC-GLUCOSE METER 142 mg/dL 70-110 H TESTED AT [facility] [address] (BEAKER) (test code [facility] = 1538) [place] [address] RHEUMATOID FACTOR AB, REFLEX TO [id number] 01:10:00 Test Item Value Reference Range Interpretation Comments RHEUMATOID FACTOR (BEAKER) (test Negative code = 573) [id number] 00:56:00 Test Item Value Reference Range Interpretation Comments PROTIME ([facility]) (test code = 17.9 seconds 11.8-14.4 H 759) INR ([facility]) (test code = 370) 1.4 1.2-1.5 PARTIAL THROMBOPLASTIN TIME 48.9 seconds 23.2-36.1 H ([facility]) (test code = 760) RECOMMENDED COUMADIN/WARFARIN INR THERAPY RANGESSTANDARD DOSE: 2.0 - 3.0 Includes: PROPHYLAXIS forvenous thrombosis, systemic embolization; TREATMENT for venous thrombosis and/or pulmonary embolus.HIGH RISK: Target INR is 2.5-3.5 for patients with mechanical heart valves.VENOUS DOPPLER LEGS, [id number] 22:05:00Reason for exam:->leukocytosis persistentFINAL REPORT CLINICAL HISTORY: [...] MDReport Verified Date/Time: 11/18/2017 22:05:25 Reading Location: [address] Reading Room POCT-GLUCOSE [id number] 20:56:00 Test Item Value Reference Range Interpretation Comments POC-GLUCOSE METER 111 mg/dL 70-110 H TESTED AT [facility] [address] ([facility]) (test code [facility] = 1538) [place] [address] AMIKACIN LEVEL, [id number] 17:26:00 Test Item Value Reference Range Interpretation Comments AMIKACIN, TROUGH (BEAKER) (test 10.3 ug/mL 4.0-8.0 HH code = 1830) Therapeutic Range (ug/mL)Peak: 25.0-35.0Trough: 4.0-8.0 Toxic: >35.0VENOUS DOPPLER ARMS, [id number] 16:59:00Reason for exam:->swelling right handAddendum BeginsREPORT STATUS:A [...] MDReport Verified Date/Time: 11/18/2017 15:36:41 [facility] POCT-GLUCOSE [id number] 16:58:00 Test Item Value Reference Range Interpretation Comments POC-GLUCOSE METER 100 mg/dL 70-110 TESTED AT [facility] [address] ([facility]) (test code [facility] = 1538) [place] [address] POCT-GLUCOSE [id number] 11:30:00 Test Item Value Reference Range Interpretation Comments POC-GLUCOSE METER 119 mg/dL 70-110 H TESTED AT [facility] [address] ([facility]) (test code [facility] = 1538) [place] [address] HEPATITIS B SURFACE [id number] 11:18:00 Test Item Value Reference Range Interpretation Comments HEPATITIS B SURFACE ANTIBODY 436.5 mIU/mL <8.0 H ([facility]) (test code = 647) HEPATITIS C [id number] 11:18:00 Test Item Value Reference Range Interpretation Comments HEPATITIS C ANTIBODY ([facility]) Nonreactive Nonreactive (test code = 367) AMIKACIN LEVEL, [id number] 11:03:00 Test Item Value Reference Range Interpretation Comments AMIKACIN, PEAK (AKER) (test code 26.0 ug/mL 25.0-35.0 = 1831) Therapeutic Range (ug/mL)Peak: 25.0-35.0Trough: 4.0-8.0 Toxic: >35.0 SURGICALLY OBTAINED CULTURE + GRAM [id number] 08:25:00 Test Item Value Reference Interpretation Comments [...] No organisms seen (BEAKER) (test code = 440384) ANAEROBIC [id number] 07:53:00 Test Item Value Reference Range Interpretation Comments CULTURE (BEAKER) (test No anaerobes isolated code = 1095) GRAM STAIN RESULT 1+ WBCs (BEAKER) (test code = 1123) GRAM STAIN RESULT No organisms seen (BEAKER) (test code = 00916) POCT-GLUCOSE [id number] 06:37:00 Test Item Value Reference Range Interpretation Comments POC-GLUCOSE METER 135 mg/dL 70-110 H TESTED AT [facility] [address] ([facility]) (test code [facility] = 1538) [place] [address] HIV-1 ANTIGEN WITH HIV-1/2 [id number] 05:51:00 Test Item Value Reference Range Interpretation Comments HIV-1 ANTIGEN WITH HIV 1\\T\\2 Nonreactive Nonreactive ANTIBODY (2) (BEAKER) (test code = 2586) HEPATITIS B SURFACE [id number] 05:46:00 Test Item Value Reference Range Interpretation Comments HEPATITIS B SURFACE ANTIGEN (2) Nonreactive Nonreactive (BEAKER) (test code = 2585) CBC W/PLT COUNT & AUTO [id number] 05:11:00 Test Item Value Reference Range Interpretation [...] code = 2801) Smear reviewed. Results confirmed.POCT-GLUCOSE [id number] 23:01:00 Test Item Value Reference Range Interpretation Comments POC-GLUCOSE METER 111 mg/dL 70-110 H TESTED AT [facility] [address] ([facility]) (test code [facility] = 1538) [place] [address] POCT-GLUCOSE [id number] 17:15:00 Test Item Value Reference Range Interpretation Comments POC-GLUCOSE METER 100 mg/dL 70-110 TESTED AT [facility] [address] ([facility]) (test code [facility] = 1538) [place] [address] C-REACTIVE [id number] 14:34:00 Test Item Value Reference Range Interpretation Comments C-REACTIVE PROTEIN (BEAKER) (test 35.06 mg/dL 0.00-0.50 H code = 676) POCT-GLUCOSE [id number] 12:50:00 Test Item Value Reference Range Interpretation Comments POC-GLUCOSE METER 221 mg/dL 70-110 H TESTED AT [facility] [address] ([facility]) (test code [facility] = 1538) [place] [address] CBC W/PLT COUNT & AUTO [id number] 10:56:00 Test Item Value Reference Range Interpretation [...] PERCENT (BEAKER) (test code = 2801) POCT-GLUCOSE [id number] 10:03:00 Test Item Value Reference Range Interpretation Comments POC-GLUCOSE METER 104 mg/dL 70-110 TESTED AT [facility] [address] (BEAKER) (test code [facility] = 1538) [place] [address] BASIC METABOLIC [id number] 04:51:00 Test Item Value Reference Range Interpretation [...] NOT APPLICABLE FOR DIALYSIS PATIEN TS. POCT-GLUCOSE [id number] 20:41:00 Test Item Value Reference Range Interpretation Comments POC-GLUCOSE METER 127 mg/dL 70-110 H TESTED AT [facility] [address] (BEAKER) (test code [facility] = 1538) [place] [address] POCT-GLUCOSE [id number] 17:03:00 Test Item Value Reference Range Interpretation Comments POC-GLUCOSE METER 145 mg/dL 70-110 H TESTED AT [facility] [address] (BEAKER) (test code [facility] = 1538) [place] [address] [id number] 12:39:00 Test Item Value Reference Range Interpretation Comments PROCALCITONIN (BEAKER) (test code 1.27 ng/mL <0.05 H = 3036) SEPSIS RISK (ng/mL)Low: 0.05-0.50Intermediate: 0.51-2.00High: >=2.01POCT-GLUCOSE [id number] 11:58:00 Test Item Value Reference Range Interpretation Comments POC-GLUCOSE METER 120 mg/dL 70-110 H TESTED AT [facility] [address] ([facility]) (test code [facility] = 1538) [place] [address] CBC W/PLT COUNT & AUTO [id number] 09:50:00 Test Item Value Reference Range Interpretation [...] PERCENT (BEAKER) (test code = 2801) POCT-GLUCOSE [id number] 06:32:00 Test Item Value Reference Range Interpretation Comments POC-GLUCOSE METER 124 mg/dL 70-110 H TESTED AT [facility] [address] (BEAKER) (test code [facility] = 1538) [place] [address] BASIC METABOLIC [id number] 06:27:00 Test Item Value Reference Range Interpretation [...] APPLICABLE FOR DIALYSIS PATIEN TS. BUN AND [id number] 06:26:00 Test Item Value Reference Range Interpretation [...] APPLICABLE FOR DIALYSIS PATIEN TS. HEMOGLOBIN AND [id number] 06:03:00 Test Item Value Reference Range Interpretation Comments HEMOGLOBIN (BEAKER) (test code = 8.6 GM/DL 12.0-15.5 L 410) HEMATOCRIT (BEAKER) (test code = 25.9 % 36.0-46.0 L 411) CT, CHEST, WITHOUT [id number] 22:51:00FINAL REPORT CLINICAL HISTORY: Leukocytosis FINDINGS: Multiple [...] MDReport Verified Date/Time: 11/15/2017 22:51:35 Reading Location: [address] [place], [id number] 22:51:00FINAL REPORT CLINICAL HISTORY: Leukocytosis FINDINGS: Multiple [...] MDReport Verified Date/Time: 11/15/2017 22:51:35 Reading Location: [address] Reading Room POCT-GLUCOSE [id number] 21:14:00 Test Item Value Reference Range Interpretation Comments POC-GLUCOSE METER 128 mg/dL 70-110 H TESTED AT [address] ([facility]) (test code [facility] = 1538) [place] [address] POCT-GLUCOSE [id number] 17:10:00 Test Item Value Reference Range Interpretation Comments POC-GLUCOSE METER 109 mg/dL 70-110 TESTED AT [facility] [address] ([facility]) (test code [facility] = 1538) [place] [address] POCT-GLUCOSE [id number] 12:15:00 Test Item Value Reference Range Interpretation Comments POC-GLUCOSE METER 116 mg/dL 70-110 H TESTED AT [facility] [address] ([facility]) (test code [facility] = 1538) [place] [address] SPIN/CONCENTRATION [id number] 10:39:00 Test Item Value Reference Range Interpretation Comments CONCENTRATION CHARGED ([facility]) (test Done code = 2657) CBC W/PLT COUNT & AUTO [id number] 09:22:00 Test Item Value Reference Range Interpretation [...] (test code = 2801) TYPE AND SCREEN, [id number] 08:18:00 Test Item Value Reference Range Interpretation Comments ABO/RH AUTOMATED (BEAKER) (test B POSITIVE code = 2260) AB SCREEN (BEAKER) (test code = NEGATIVE 923) ANAEROBIC [id number] 07:55:00 Test Item Value Reference Range Interpretation Comments CULTURE (BEAKER) (test No anaerobes isolated code = 1095) BASIC METABOLIC [id number] 05:40:00 Test Item Value Reference Range Interpretation [...] APPLICABLE FOR DIALYSIS PATIEN TS. BUN AND [id number] 05:37:00 Test Item Value Reference Range Interpretation [...] APPLICABLE FOR DIALYSIS PATIEN TS. VANCOMYCIN LEVEL, [id number] 05:36:00 Test Item Value Reference Range Interpretation Comments VANCOMYCIN TROUGH (BEAKER) (test 17.5 ug/mL 10.0-20.0 code = 522) HEMOGLOBIN AND [id number] 05:23:00 Test Item Value Reference Range Interpretation Comments HEMOGLOBIN (BEAKER) (test code = 6.4 GM/DL 12.0-15.5 L 410) HEMATOCRIT (BEAKER) (test code = 19.3 % 36.0-46.0 LL 411) POCT-GLUCOSE [id number] 16:12:00 Test Item Value Reference Range Interpretation Comments POC-GLUCOSE METER 129 mg/dL 70-110 H TESTED AT [facility] [address] (BEAKER) (test code [facility] = 1538) [place] [address] POCT-GLUCOSE [id number] 12:07:00 Test Item Value Reference Range Interpretation Comments POC-GLUCOSE METER 114 mg/dL 70-110 H TESTED AT [facility] [address] (BEAKER) (test code [facility] = 1538) [place] [address] POCT-GLUCOSE [id number] 10:00:00 Test Item Value Reference Range Interpretation Comments POC-GLUCOSE METER 97 mg/dL 70-110 TESTED AT [facility] [address] (BEAKER) (test code = [facility] 1538) [place] [address] SURGICALLY OBTAINED CULTURE + GRAM [id number] 09:36:00 Test Item Value Reference Range Interpretation Comments CULTURE (BEAKER) (test code No growth = 1095) GRAM STAIN RESULT (BEAKER) <1+ WBCs (test code = 1123) GRAM STAIN RESULT (BEAKER) No organisms seen (test code = 46073) POCT-GLUCOSE [id number] 06:06:00 Test Item Value Reference Range Interpretation Comments POC-GLUCOSE METER 105 mg/dL 70-110 TESTED AT [facility] [address] (BEAKER) (test code [facility] = 1538) [place] [address] BASIC METABOLIC [id number] 05:55:00 Test Item Value Reference Range Interpretation Comments SODIUM (BEAKER) 138 meq/L 135-148 (test code = 381) POTASSIUM (BEAKER) 4.0 meq/L 3.5-5.5 (test code = 379) CHLORIDE (BEAKER) 108 meq/L 98-106 H (test code = 382) CO2 (BEAKER) (test 23 meq/L - code = 355) BLOOD UREA NITROGEN 18 [...] PATIEN TS. CBC W/PLT COUNT & AUTO [id number] 05:35:00 Test Item Value Reference Range Interpretation [...] PERCENT (BEAKER) (test code = 2801) POCT-GLUCOSE [id number] 21:11:00 Test Item Value Reference Range Interpretation Comments POC-GLUCOSE METER 94 mg/dL 70-110 TESTED AT [facility] [address] ([facility]) (test code = [facility] 1538) [place] [address] POCT-GLUCOSE [id number] 16:51:00 Test Item Value Reference Range Interpretation Comments POC-GLUCOSE METER 121 mg/dL 70-110 H TESTED AT [facility] [address] ([facility]) (test code [facility] = 1538) [place] [address] POCT-GLUCOSE [id number] 15:10:00 Test Item Value Reference Range Interpretation Comments POC-GLUCOSE METER 97 mg/dL 70-110 TESTED AT [address] ([facility]) (test code = [facility] 1538) [place] [address] [id number] 10:17:00 Test Item Value Reference Range Interpretation Comments PROCALCITONIN (BEAKER) (test code 1.41 ng/mL <0.05 H = 3036) SEPSIS RISK (ng/mL)Low: 0.05-0.50Intermediate: 0.51-2.00High: >=2.01HEPATIC FUNCTION [id number] 09:52:00 Test Item Value Reference Range Interpretation [...] code = 12 U/L 6-50 347) POCT-GLUCOSE [id number] 05:57:00 Test Item Value Reference Range Interpretation Comments POC-GLUCOSE METER 87 mg/dL 70-110 TESTED AT [facility] [address] (BEAKER) (test code = [facility] 1538) [place] [address] BASIC METABOLIC [id number] 05:34:00 Test Item Value Reference Range Interpretation [...] PATIEN TS. CBC W/PLT COUNT & AUTO [id number] 05:33:00 Test Item Value Reference Range Interpretation [...] (BEAKER) (test code = 2801) BUN AND [id number] 05:32:00 Test Item Value Reference Range Interpretation Comments BLOOD UREA NITROGEN 21 mg/dL 10-26 (BEAKER) (test code = 354) CREATININE (BEAKER) 0.79 mg/dL 0.50-1.20 (test code = 358) EGFR (BEAKER) (test 91 mL/min/1.73 ESTIMA YUMIKO GFR IS code = 1092) sq m NOT ACCURATE CREATININE CLEARANCE IN PREDICTING GLOMERULAR FILTRATION RATE . ESTIMATED GFR I S NOT APPLICABLE FOR DIALYSIS PATIEN TS. BLOOD [id number] 04:00:00 Test Item Value Reference Range Interpretation Comments CULTURE (BEAKER) (test No growth in 5 days code = 1095) BLOOD [id number] 01:00:00 Test Item Value Reference Range Interpretation Comments CULTURE (BEAKER) (test No growth in 5 days code = 1095) POCT-GLUCOSE [id number] 21:25:00 Test Item Value Reference Range Interpretation Comments POC-GLUCOSE METER 135 mg/dL 70-110 H TESTED AT [facility] [address] (BEAKER) (test code [facility] = 1538) [place] [address] ANG, NON-TUNNELED CATH/PICC >5 Y.O.2017-11-12 17:59:00Reason for [...] Successful PICC insertion as described. Signed: Mandi Mancillaeport Verified Date/Time: 11/12/2017 17:59:19 Reading Location: [facility] Radiology Reading Room POCT-GLUCOSE [id number] 16:37:00 Test Item Value Reference Range Interpretation Comments POC-GLUCOSE METER 98 mg/dL 70-110 TESTED AT [facility] [address] (BEAKER) (test code = [facility] 1538) [place] [address] PERIPHERAL BLOOD SMEAR - PATH REVIEW LAB [id number] 08:14:00 Test Item Value Reference Range Interpretation Comments PERIPHERAL SMR REVIEW Neutrophilic (BEAKER) (test code = leukocytosis and 2640) microcytic anemia. No blast forms seen. [id number] Nazario Becker M.D. (BEAKER) (test code = (electronic signature) 0155) (MANUAL DIFFERENTIAL)2017-11-12 08:12:00 Test Item Value Reference [...] few 963) BODY FLUID CULTURE + GRAM [id number] 08:10:00 Test Item Value Reference Range Interpretation Comments CULTURE (BEAKER) (test No growth code = 1095) GRAM STAIN RESULT 3+ White blood cells (BEAKER) (test code = seen 1123) GRAM STAIN RESULT No organisms seen (BEAKER) (test code = 05793) POCT-GLUCOSE [id number] 06:18:00 Test Item Value Reference Range Interpretation Comments POC-GLUCOSE METER 113 mg/dL 70-110 H TESTED AT [facility] [address] (BEAKER) (test code [facility] = 1538) [place] [address] CBC W/PLT COUNT & AUTO [id number] 04:40:00 Test Item Value Reference Range Interpretation [...] (BEAKER) (test code = 2801) BASIC METABOLIC [id number] 03:56:00 Test Item Value Reference Range Interpretation [...] APPLICABLE FOR DIALYSIS PATIEN TS. BUN AND [id number] 03:55:00 Test Item Value Reference Range Interpretation Comments BLOOD UREA NITROGEN 19 mg/dL 10-26 (BEAKER) (test code = 354) CREATININE (BEAKER) 0.81 mg/dL 0.50-1.20 (test code = 358) EGFR (BEAKER) (test 88 mL/min/1.73 ESTIMA YUMIKO GFR IS code = 1092) sq m NOT ACCURATE CREATININE CLEARANCE IN PREDICTING GLOMERULAR FILTRATION RATE . ESTIMATED GFR I S NOT APPLICABLE FOR DIALYSIS PATIEN TS. POCT-GLUCOSE [id number] 20:51:00 Test Item Value Reference Range Interpretation Comments POC-GLUCOSE METER 151 mg/dL 70-110 H TESTED AT [facility] [address] (BEAKER) (test code [facility] = 1538) [place] [address] POCT-GLUCOSE [id number] 17:20:00 Test Item Value Reference Range Interpretation Comments POC-GLUCOSE METER 101 mg/dL 70-110 TESTED AT [facility] [address] (BEAKER) (test code [facility] = 1538) [place] [address] SPIN/CONCENTRATION [id number] 15:42:00 Test Item Value Reference Range Interpretation Comments CONCENTRATION CHARGED (BEAKER) (test Done code = 2657) POCT-GLUCOSE [id number] 11:34:00 Test Item Value Reference Range Interpretation Comments POC-GLUCOSE METER 109 mg/dL 70-110 TESTED AT [facility] [address] (BEAKER) (test code [facility] = 1538) [place] [address] VANCOMYCIN LEVEL, [id number] 09:14:00 Test Item Value Reference Range Interpretation Comments VANCOMYCIN TROUGH (BEAKER) (test 10.6 ug/mL 10.0-20.0 code = 522) BASIC METABOLIC [id number] 05:59:00 Test Item Value Reference Range Interpretation [...] APPLICABLE FOR DIALYSIS PATIEN TS. BUN AND [id number] 05:58:00 Test Item Value Reference Range Interpretation Comments BLOOD UREA NITROGEN 17 mg/dL 10-26 (BEAKER) (test code = 354) CREATININE (BEAKER) 0.80 mg/dL 0.50-1.20 (test code = 358) EGFR (BEAKER) (test 90 mL/min/1.73 ESTIMA YUMIKO GFR IS code = 1092) sq m NOT ACCURATE CREATININE CLEARANCE IN PREDICTING GLOMERULAR FILTRATION RATE . ESTIMATED GFR I S NOT APPLICABLE FOR DIALYSIS PATIEN TS. POCT-GLUCOSE [id number] 05:49:00 Test Item Value Reference Range Interpretation Comments POC-GLUCOSE METER 121 mg/dL 70-110 H TESTED AT [facility] [address] (BEAKER) (test code [facility] = 1538) [place] [address] CBC W/PLT COUNT & AUTO [id number] 05:43:00 Test Item Value Reference Range Interpretation [...] PERCENT (BEAKER) (test code = 2801) POCT-GLUCOSE [id number] 00:07:00 Test Item Value Reference Range Interpretation Comments POC-GLUCOSE METER 150 mg/dL 70-110 H TESTED AT [facility] [address] (BEAKER) (test code [facility] = [address]38) [place] [address] RAD, HIP, 1 VIEW, [id number] 23:51:00Reason for exam:->postopFINAL REPORT Right hip. HISTORY: Postoperative. COMPARISON STUDY: October 29, 2017. FINDINGS: A single frontal view of the right hip demonstrates a hemiarthroplasty in place. No cement is identified. There is no evidence of fracture or malalignment on this single projection. Signed: Alexandrea Martines MDReport Verified Date/Time: 11/10/2017 23:51:24 Reading Location: [facility] C013X Ortho Consult Reading Room RAD, PELVIS, 1 OR 2 [id number] 23:22:00Reason for exam:->Hip ArthroplastyReason for exam:->X-Table Lateral [...] MDReport Verified Date/Time: 11/10/2017 23:22:52 Reading Location: [facility] C013X Ortho Consult Reading Room POCT-GLUCOSE [id number] 22:54:00 Test Item Value Reference Range Interpretation Comments POC-GLUCOSE METER 140 mg/dL 70-110 H TESTED AT [address] ([facility]) (test code [facility] = 1538) [place] [address] POCT-GLUCOSE [id number] 16:57:00 Test Item Value Reference Range Interpretation Comments POC-GLUCOSE METER 98 mg/dL 70-110 TESTED AT [facility] [address] ([facility]) (test code = [facility] 1538) [place] [address] POCT-GLUCOSE [id number] 12:41:00 Test Item Value Reference Range Interpretation Comments POC-GLUCOSE METER 111 mg/dL 70-110 H TESTED AT [facility] [address] ([facility]) (test code [facility] [facility] = [facility]) [place] [address] (MANUAL DIFFERENTIAL)2017-11-10 07:35:00 Test Item Value Reference [...] = 762) CBC W/PLT COUNT & AUTO [id number] 07:32:00 Test Item Value Reference Range Interpretation [...] 0-0 CELLS (BEAKER) (test code = 413) [id number] 07:25:00 Test Item Value Reference Range Interpretation Comments PHOSPHORUS (BEAKER) (test code = 3.5 mg/dL 2.5-4.5 604) [id number] 07:25:00 Test Item Value Reference Range Interpretation Comments MAGNESIUM (BEAKER) (test code = 1.7 mg/dL 1.5-3.0 627) BASIC METABOLIC [id number] 07:25:00 Test Item Value Reference Range Interpretation [...] NOT APPLICABLE FOR DIALYSIS PATIEN TS. POCT-GLUCOSE [id number] 06:45:00 Test Item Value Reference Range Interpretation Comments POC-GLUCOSE METER 121 mg/dL 70-110 H TESTED AT [facility] [address] (BEAKER) (test code [facility] = 1538) [place] [address] POCT-GLUCOSE [id number] 22:14:00 Test Item Value Reference Range Interpretation Comments POC-GLUCOSE METER 124 mg/dL 70-110 H TESTED AT [facility] [address] ([facility]) (test code [facility] = 1538) [place] [address] VANCOMYCIN LEVEL, [id number] 21:02:00 Test Item Value Reference Range Interpretation Comments VANCOMYCIN TROUGH ([facility]) (test 9.6 ug/mL 10.0-20.0 L code = 522) POCT-GLUCOSE [id number] 17:22:00 Test Item Value Reference Range Interpretation Comments POC-GLUCOSE METER 98 mg/dL 70-110 TESTED AT [facility] [address] ([facility]) (test code = [facility] 1538) [place] [address] POCT-GLUCOSE [id number] 11:36:00 Test Item Value Reference Range Interpretation Comments POC-GLUCOSE METER 127 mg/dL 70-110 H TESTED AT [facility] [address] ([facility]) (test code [facility] = 1538) [place] [address] WOUND CULTURE + GRAM [id number] 11:05:00 Test Item Value Reference Interpretation Comments Range CULTURE ([facility]) (test ENTEROBACTER A <1+ E [...] No organisms seen (AKER) (test code = 742151) POCT-GLUCOSE [id number] 05:54:00 Test Item Value Reference Range Interpretation Comments POC-GLUCOSE METER 116 mg/dL 70-110 H TESTED AT [facility] [address] (BEAKER) (test code [facility] = 1538) [place] [address] [id number] 03:42:00 Test Item Value Reference Range Interpretation Comments PHOSPHORUS (BEAKER) (test code = 3.8 mg/dL 2.5-4.5 604) [id number] 03:42:00 Test Item Value Reference Range Interpretation Comments MAGNESIUM (BEAKER) (test code = 1.9 mg/dL 1.5-3.0 627) BASIC METABOLIC [id number] 03:42:00 Test Item Value Reference Range Interpretation [...] PATIEN TS. CBC W/PLT COUNT & AUTO [id number] 03:21:00 Test Item Value Reference Range Interpretation [...] PERCENT (BEAKER) (test code = 2801) POCT-GLUCOSE [id number] 20:55:00 Test Item Value Reference Range Interpretation Comments POC-GLUCOSE METER 122 mg/dL 70-110 H TESTED AT [facility] [address] (BEAKER) (test code [facility] = 1538) [place] [address] POCT-GLUCOSE [id number] 16:19:00 Test Item Value Reference Range Interpretation Comments POC-GLUCOSE METER 136 mg/dL 70-110 H TESTED AT [facility] [address] (BEAKER) (test code [facility] = 1538) [place] [address] HEMOGLOBIN AND [id number] 14:19:00 Test Item Value Reference Range Interpretation Comments HEMOGLOBIN (BEAKER) (test code = 8.1 GM/DL 12.0-15.5 L 410) HEMATOCRIT (BEAKER) (test code = 24.9 % 36.0-46.0 L 411) POCT-GLUCOSE [id number] 12:13:00 Test Item Value Reference Range Interpretation Comments POC-GLUCOSE METER 142 mg/dL 70-110 H TESTED AT [facility] [address] ([facility]) (test code [facility] = 1538) [place] [address] POCT-GLUCOSE [id number] 06:02:00 Test Item Value Reference Range Interpretation Comments POC-GLUCOSE METER 109 mg/dL 70-110 TESTED AT [facility] [address] (BEAKER) (test code [facility] = 1538) [place] [address] POCT-GLUCOSE [id number] 05:38:00 Test Item Value Reference Range Interpretation Comments POC-GLUCOSE METER 150 mg/dL 70-110 H TESTED AT [facility] [address] (BEAKER) (test code [facility] = 1538) [place] [address] TYPE AND SCREEN, [id number] 03:11:00 Test Item Value Reference Range Interpretation Comments ABO/RH AUTOMATED (BEAKER) (test B Positive code = 2260) AB SCREEN (BEAKER) (test code = Negative 923) HEMOGLOBIN AND [id number] 02:41:00 Test Item Value Reference Range Interpretation Comments HEMOGLOBIN (BEAKER) (test code = 5.9 GM/DL 12.0-15.5 LL 410) HEMATOCRIT (BEAKER) (test code = 18.2 % 36.0-46.0 LL 411) COMPREHENSIVE METABOLIC [id number] 01:43:00 Test Item Value Reference Range Interpretation [...] S NOT APPLICABLE FOR DIALYSIS PATIEN TS. [id number] 01:36:00 Test Item Value Reference Range Interpretation Comments PHOSPHORUS (BEAKER) (test code = 3.3 mg/dL 2.5-4.5 604) [id number] 01:36:00 Test Item Value Reference Range Interpretation Comments MAGNESIUM (BEAKER) (test code = 1.9 mg/dL 1.5-3.0 627) LACTIC ACID, VENOUS, WHOLE [id number] 01:29:00 Test Item Value Reference Range Interpretation Comments LACTATE BLOOD VENOUS (2) (BEAKER) 0.8 mmol/L 0.5-2.2 (test code = 2872) Effective 07/19/2015: Units/Reference Range ChangeNew: 0.5-2.2 mmol/L Previous: 5-20 mg/dLCBC W/PLT COUNT & AUTO [id number] 01:25:00 Test Item Value Reference Range Interpretation [...] PERCENT (BEAKER) (test code = 2801) POCT-GLUCOSE [id number] 21:52:00 Test Item Value Reference Range Interpretation Comments POC-GLUCOSE METER 113 mg/dL 70-110 H TESTED AT [facility] [address] ([place]) (test code [facility] = 1538) [place] [address] CT, EXTREMITY, LOWER WITHOUT CONTRAST, [id number] 19:15:00FINAL REPORT CT scan of the right [...] MDReport Verified Date/Time: 11/07/2017 19:15:59 Reading Location: [address] Consult Reading Room RAD, HIP, 2 VIEWS, [id number] 16:19:00Reason for exam:->HIP PAIN FINAL REPORT INDICATION:Right [...] MDReport Verified Date/Time: 11/07/2017 16:19:47 Reading Location: [facility] Women CBC W/PLT COUNT & AUTO [id number] 16:00:00 Test Item Value Reference Range Interpretation [...] (BEAKER) (test code Normal = 762) C-REACTIVE [id number] 15:30:00 Test Item Value Reference Range Interpretation Comments C-REACTIVE PROTEIN (BEAKER) (test 47.39 mg/dL 0.00-0.50 H code = 676) COMPREHENSIVE METABOLIC [id number] 15:30:00 Test Item Value Reference Range Interpretation [...] APPLICABLE FOR DIALYSIS PATIEN TS. BASIC METABOLIC [id number] 06:26:00 Test Item Value Reference Range Interpretation [...] PATIEN TS. CBC W/PLT COUNT & AUTO [id number] 06:12:00 Test Item Value Reference Range Interpretation [...] L 0.00-0.20 (test code = 417) POCT-GLUCOSE [id number] 05:55:00 Test Item Value Reference Range Interpretation Comments POC-GLUCOSE METER 120 mg/dL 70-110 H TESTED AT [facility] [address] (BEAKER) (test code [facility] = 1538) [place] [address] POCT-GLUCOSE [id number] 21:07:00 Test Item Value Reference Range Interpretation Comments POC-GLUCOSE METER 121 mg/dL 70-110 H TESTED AT [facility] [address] (BEAKER) (test code [facility] = 1538) [place] [address] POCT-GLUCOSE [id number] 17:45:00 Test Item Value Reference Range Interpretation Comments POC-GLUCOSE METER 131 mg/dL 70-110 H TESTED AT [facility] [address] (BEAKER) (test code [facility] = 1538) [place] [address] HEMOGLOBIN AND [id number] 14:26:00 Test Item Value Reference Range Interpretation Comments HEMOGLOBIN (BEAKER) (test code = 7.9 GM/DL 12.0-15.0 L 410) HEMATOCRIT (BEAKER) (test code = 24.6 % 36.0-45.0 L 411) POCT-GLUCOSE [id number] 11:22:00 Test Item Value Reference Range Interpretation Comments POC-GLUCOSE METER 134 mg/dL 70-110 H TESTED AT [facility] [address] (BEAKER) (test code [facility] = 1538) [place] [address] BASIC METABOLIC [id number] 05:16:00 Test Item Value Reference Range Interpretation [...] APPLICABLE FOR DIALYSIS PATIEN TS. Specimen recollected. [id number] 04:56:00 Test Item Value Reference Range Interpretation Comments POC-GLUCOSE METER 141 mg/dL 70-110 H TESTED AT [facility] [address] (BEAKER) (test code [facility] = 1538) [place] [address] HEMOGLOBIN AND [id number] 04:10:00 Test Item Value Reference Range Interpretation [...] few 965) CBC W/PLT COUNT & AUTO [id number] 21:34:00 Test Item Value Reference Range Interpretation [...] 6.5-10.5 (BEAKER) (test code = 754) POCT-GLUCOSE [id number] 21:17:00 Test Item Value Reference Range Interpretation Comments POC-GLUCOSE METER 126 mg/dL 70-110 H TESTED AT [facility] [address] (BEAKER) (test code [employer] [facility] = 1538) [place] [address] POCT-GLUCOSE [id number] 18:04:00 Test Item Value Reference Range Interpretation Comments POC-GLUCOSE METER 117 mg/dL 70-110 [facility] [address] [facility] (BEAKER) (test code [employer] [facility] = 1538) [place] [address] POCT-GLUCOSE [id number] 11:38:00 Test Item Value Reference Range Interpretation Comments POC-GLUCOSE METER 133 mg/dL 70-110 H TESTED AT [facility] [address] (BEAKER) (test code [facility] = 1538) [place] [address] BASIC METABOLIC [id number] 04:20:00 Test Item Value Reference Range Interpretation [...] APPLICABLE FOR DIALYSIS PATIEN TS. HEMOGLOBIN AND [id number] 04:11:00 Test Item Value Reference Range Interpretation Comments HEMOGLOBIN (BEAKER) (test code = 8.1 GM/DL 12.0-15.0 L 410) HEMATOCRIT (BEAKER) (test code = 25.6 % 36.0-45.0 L 411) POCT-GLUCOSE [id number] 04:03:00 Test Item Value Reference Range Interpretation Comments POC-GLUCOSE METER 151 mg/dL 70-110 H TESTED AT [facility] [address] (BEAKER) (test code [facility] = 1538) [place] [address] RAD, HIP, 1 VIEW, [id number] 21:16:00Reason for exam:->postopShould this be performed at [...] Lau Verified Date/Time: 10/29/2017 21:16:21 Reading Location: [facility] B1 C013T Transitional Re ading Room POCT-GLUCOSE [id number] 20:20:00 Test Item Value Reference Range Interpretation Comments POC-GLUCOSE METER 76 mg/dL 70-110 TESTED AT [facility] [address] (BEAKER) (test code = [facility] 3190) [place] [address] POCT-GLUCOSE [id number] 15:13:00 Test Item Value Reference Range Interpretation Comments POC-GLUCOSE METER 150 mg/dL 70-110 H TESTED AT [facility] [address] ([facility]) (test code [facility] = 1538) [place] [address] RAD, HIP, OPERATIVE, [id number] 14:41:00Reason for exam:->RequiredFINAL REPORT RIGHT HIP ONE VIEW HISTORY: Right hip pain, right hip arthroplasty COMPARISON: None FINDINGS: Single intraoperative image of the right hip/low pelvis shows in progress changes of right hip total arthroplasty. A reamer is present in the proximal right femur. The acetabular region is obscured by overlying hardware. Signed: Ceci Aldrich Verified Date/Time: 10/29/2017 14:41:51 Reading Location: [facility] Radiology Reading Room POCT- GLUCOSE [id number] 09:53:00 Test Item Value Reference Range Interpretation Comments POC-GLUCOSE METER 104 mg/dL 70-110 TESTED AT [facility] [address] (BEAKER) (test code [facility] = 1538) [place] [address] BASIC METABOLIC [id number] 12:23:00 Test Item Value Reference Range Interpretation [...] APPLICABLE FOR DIALYSIS PATIEN TS. URINALYSIS W/ [id number] 12:21:00 Test Item Value Reference Range Interpretation [...] code = 1663) SOURCE(BEAKER) (test code = 2903) CBC W/PLT COUNT & AUTO [id number] 12:18:00 Test Item Value Reference Range Interpretation [...] L 0.00-0.20 (test code = 417) MRSA [id number] 08:33:00 Test Item Value Reference Range Interpretation Comments CULTURE (BEAKER) (test code No MRSA isolated = 1095)
[2021-06-19] MEDS ORDERED: ONDANSETRON 4 MG/2 ML VIAL ONE ×2 (05:21→08:04)
[2021-06-19] MEDS ORDERED: NA CHLORIDE 0.9% 500 ML ONE (05:21)
[2021-06-19] MEDS ORDERED: NA CHLORIDE 0.9% 1,000 ML ONE ×2 (05:21→07:36)
[2021-06-19] MEDS ORDERED: FENTANYL CITR 100 MCG/2 ML ONE ×2 (05:21→07:00)
[2021-06-19 05:34] LABS: Absolute Lymphocytes (CBC) 0.5 K/uL (0.7-4.9); Hematocrit 22.5 % (36.0-45.0); Lymphocytes % 9.7 % (15.3-44.8); MPV 7.3 fL (7.6-11.3); RBC Red Blood Cell Count 2.57 M/uL (3.86-4.86)
[2021-06-19 05:35] LABS: Protime INR 1.54
[2021-06-19 06:00] LABS: ALT/SGPT < 10 U/L (12-78); AST/SGOT 10 U/L (15-37); Albumin 2.9 g/dL (3.4-5.0); Alkaline Phosphatase 68 U/L (45-117); BUN Blood Urea Nitrogen 25 mg/dL (7-18); Bicarbonate 19 mmol/L (21-32); Bilirubin Direct 0.2 mg/dL (0-0.2); Bilirubin Total 0.4 mg/dL (0.2-1.0); Glucose Level 78 mg/dL (74-106); Magnesium 1.5 mg/dL (1.8-2.4); NT PRO-BNP 1510 pg/mL (<125); Potassium 5.3 mmol/L (3.5-5.1); Protein, Total 7.9 g/dL (6.4-8.2); Sodium Level 137 mmol/L (136-145); Troponin High Sensitivity 6.5 pg/mL (<58.9)
--- NOTE | 2021-06-19 06:47 | EDPHYS ---
Physician Documentation [facility] Name: Sade Galdamez Age: 61 yrs Sex: Female : 1960 Arrival Date: 06/19/2021 Time: 04:58 Bed 6 Private MD: Jean Carlos Sánchez HPI: 06/19 05:07 This 61 yrs old Black Female presents to ER via Unassigned with complaints of left leg ruddy sarcoma, left abd pain. 05:07 The patient or guardian reports decreased range of motion, an injury, pain. that ruddy occurred at home. The complaints affect the abdomen and left leg. Onset: The symptoms/episode began/occurred 1 week(s) ago. Modifying factors: The symptoms are alleviated by remaining still, the symptoms are aggravated by any movement, flexion, weight bearing. The patient presents with decreased range of motion, an injury, pain. The complaints affect the left hip, lateral aspect of left thigh, left inner thigh, medial aspect of left thigh, left upper thigh and left quadriceps. Context: hx of sarcoma. Modifying factors: The symptoms are alleviated by remaining still, the symptoms are aggravated by movement, weight bearing. Historical: - Allergies: 05:11 Iodinated Contrast Media - IV Dye; kd3 05:11 iopamidol; kd3 - PMHx: 05:11 breast cancer; chemotherapy; Hypertension; Tumor to groin area; kd3 - PSHx: 05:11 ovi mastectomy; hysterectomy; kd3 - Immunization history:: Adult Immunizations up to date, Client reports receiving the 2nd dose of the Covid vaccine, Flu vaccine is up to date. - Social history:: Smoking status: unknown. - Family history:: not pertinent. ROS: 05:07 Constitutional: Negative for fever, chills, and weight loss, Eyes: Negative for injury, ruddy pain, redness, and discharge, ENT: Negative for injury, pain, and discharge, Neck: Negative for injury, pain, and swelling, Cardiovascular: Negative for chest pain, palpitations, and edema, Respiratory: Negative for shortness of breath, cough, wheezing, and pleuritic chest pain, Back: Negative for injury and pain, : Negative for injury, bleeding, discharge, and swelling, Neuro: Negative for headache, weakness, numbness, tingling, and seizure, Psych: Negative for depression, anxiety, suicide ideation, homicidal ideation, and hallucinations, Allergy/Immunology: Negative for hives, rash, and allergies, Endocrine: Negative for neck swelling, polydipsia, polyuria, polyphagia, and marked weight changes, Hematologic/Lymphatic: Negative for swollen nodes, abnormal bleeding, and unusual bruising. 05:07 Abdomen/GI: Positive for abdominal pain, of the left upper quadrant and left lower quadrant. 05:07 MS/extremity: Positive for decreased range of motion, pain, swelling, tenderness, of the abdomen and left leg. Exam: 05:07 Constitutional: This is a well developed, well nourished patient who is awake, alert, ruddy and in no acute distress. Head/Face: Normocephalic, atraumatic. ENT: Nares patent. No nasal discharge, no septal abnormalities noted. Tympanic membranes are normal and external auditory canals are clear. Oropharynx with no redness, swelling, or masses, exudates, or evidence of obstruction, uvula midline. Mucous membranes moist. Neck: Trachea midline, no thyromegaly or masses palpated, and no cervical lymphadenopathy. Supple, full range of motion without nuchal rigidity, or vertebral point tenderness. No Meningismus. Chest/axilla: Normal chest wall appearance and motion. Nontender with no deformity. No lesions are appreciated. Cardiovascular: Regular rate and rhythm with a normal S1 and S2. No gallops, murmurs, or rubs. Normal PMI, no JVD. No pulse deficits. Respiratory: Lungs have equal breath sounds bilaterally, clear to auscultation and percussion. No rales, rhonchi or wheezes noted. No increased work of breathing, no retractions or nasal flaring. Back: No spinal tenderness. No costovertebral tenderness. Full range of motion. Female : Normal external genitalia. Skin: Warm, dry with normal turgor. Normal color with no rashes, no lesions, and no evidence of cellulitis. Neuro: Awake and alert, GCS 15, oriented to person, place, time, and situation. Cranial nerves II-XII grossly intact. Motor strength 5/5 in all extremities. Sensory grossly intact. Cerebellar exam normal. Normal gait. Psych: Awake, alert, with orientation to person, place and time. Behavior, mood, and affect are within normal limits. 05:07 Eyes: Conjunctiva: pale, bilaterally. 05:07 Abdomen/GI: Bowel sounds: normal, Palpation: moderate abdominal tenderness, in the left upper quadrant and left lower quadrant, Liver: no appreciated palpable abnormalities, Hernia: not appreciated. 05:42 ECG was reviewed by the Attending Physician. [facility] Vital Signs: 05:06 BP 113 / 76; Pulse 102; Resp 17; Temp 97.8(O); Pulse Ox 99% on R/A; Weight 108.86 kg; kd3 Height 5 ft. 5 in. (165.10 cm); Pain 10/10; 06:55 BP 113 / 76; Pulse 115; Resp 12 S; Pulse Ox 100% on R/A; as6 05:06 Body Mass Index 39.94 (108.86 kg, 165.10 cm) kd3 Procedures: 07:04 Peripheral line: by aseptic technique a peripheral line was placed in the left external ruddy jugular vein. MDM: 05:01 Patient medically screened. [facility] 05:12 Differential diagnosis: contusion, hip fracture, intertrochanteric fracture, femoral ruddy neck fracture, femoral shaft fracture, bursitis, arthritis, strain. Data reviewed: vital signs, nurses notes, lab test result(s), EKG, radiologic studies, CT scan. Data interpreted: equipment monitor phototypesetting: rate is 102 beats/min, rhythm is regular, Pulse oximetry: on room air is 99 %. Test interpretation: by ED physician or midlevel provider: ECG, plain radiologic studies. Counseling: I had a detailed discussion with the patient and/or guardian regarding: the historical points, exam findings, and any diagnostic results supporting the discharge/admit diagnosis, lab results, radiology results. 06/19 05:04 Order name: Basic Metabolic Panel; Complete Time: 06:36 [facility] 06/19 05:04 Order name: CBC with Diff; Complete Time: 06:36 [facility] 06/19 05:04 Order name: LFT's; Complete Time: 06:36 [facility] 06/19 05:04 Order name: Magnesium; Complete Time: 06:36 [facility] 06/19 05:04 Order name: NT PRO-BNP; Complete Time: 06:36 [facility] 06/19 05:04 Order name: PT-INR; Complete Time: 06:36 [facility] 06/19 05:04 Order name: Troponin HS; Complete Time: 06:36 [facility] 06/19 05:04 Order name: Urine Culture [facility] 06/19 05:04 Order name: Type And Screen [facility] 06/19 05:04 Order name: Lactate; Complete Time: 06:36 [facility] 06/19 05:05 Order name: SARS-COV-2 RT PCR (Document "Date of Onset" if Symptomatic) [facility] 06/19 05:48 Order name: Packed RBC Leukored EDKS 06/19 09:21 Order name: Urine Dipstick-Ancillary EDMS 06/19 12:17 Order name: CBC with Automated Diff ED[facility] 06/19 05:04 Order name: XRAY Chest (1 view) [facility] 06/19 05:04 Order name: Pelvis XRAY [facility] 06/19 05:04 Order name: Femur Left XRAY [facility] 06/19 12:17 Order name: CBC with Automated Diff EDMS 06/19 12:17 Order name: Comprehensive Metabolic Panel EDKS 06/19 12:17 Order name: Comprehensive Metabolic Panel [facility]KS 06/19 05:04 Order name: EKG; Complete Time: 05:05 [facility] 06/19 05:04 Order name: Cardiac monitoring; Complete Time: 05:27 [facility] 06/19 05:04 Order name: EKG - Nurse/Tech; Complete Time: 05:41 [facility] 06/19 05:04 Order name: IV Saline Lock; Complete Time: 07:01 [facility] 06/19 05:04 Order name: Labs collected and sent; Complete Time: 05:27 [facility] 06/19 05:04 Order name: O2 Per Protocol; Complete Time: 05:27 [facility] 06/19 05:04 Order name: O2 Sat Monitoring; Complete Time: 05:27 [facility] 06/19 05:04 Order name: Urine Dipstick-Ancillary (obtain specimen); Complete Time: 10:58 [facility] 06/19 05:04 Order name: IV - Large Bore; Complete Time: 07:01 [facility] 06/19 12:17 Order name: NPO EDMS 06/19 12:20 Order name: Regular EDMS EC:42 Rate is 114 beats/min. Rhythm is regular. QRS [place] is Normal. LA interval is normal. ruddy QRS interval is normal. QT interval is normal. No Q waves. T waves are Normal. No ST changes noted. Clinical impression: Sinus tachycardia and No evidence of ischemia. Interpreted by me. Reviewed by me. Administered Medications: 07:00 Drug: fentaNYL (PF) 50 mcg Route: IVP; Site: left jugular; kd3 08:23 Follow up: Response: No adverse reaction; Pain is unchanged, physician notified jg9 07:00 Drug: Zofran (Ondansetron) 4 mg Route: IVP; Site: left jugular; kd3 08:23 Follow up: Response: No adverse reaction; Nausea is decreased jg9 07:01 Drug: NS 0.9% 500 ml Route: IV; Rate: bolus; Site: left jugular; kd3 08:00 Follow up: IV Status: Completed infusion; IV Intake: 500ml jg9 08:05 Drug: NS 0.9% 1000 ml Route: IV; Rate: 125 ml/hr; Site: Other; jg9 08:10 Drug: Magnesium Sulfate 1 grams Route: IVPB; Infused Over: 1 hrs; Site: Other; jg9 09:15 Follow up: IV Status: Completed infusion; IV Intake: 100ml jg9 08:21 Drug: Zofran (Ondansetron) 4 mg Route: IVP; Site: Other; jg9 08:24 Follow up: Response: No adverse reaction jg9 08:22 Drug: Kayexalate (polystyrene) 30 grams Route: PO; jg9 10:57 Follow up: Response: No adverse reaction jg9 08:22 Drug: Dilaudid (HYDROmorphone) 1 mg Route: IVP; Site: Other; jg9 08:24 Follow up: Response: No adverse reaction; Pain is decreased; RASS: Alert and Calm (0) jg9 Disposition Summary: 06/19/21 06:46 Hospitalization Ordered Hospitalization Status: Observation ruddy Provider: Scott Coffey cha Condition: Fair ruddy Problem: chronic ruddy Symptoms: have worsened ruddy Bed/Room Type: Standard ruddy Location: Telemetry/MedSurg (observation)(06/19/21 14:57) bd Room Assignment: 411(06/19/21 14:57) bd Diagnosis - Acute kidney failure, unspecified - on chronic ruddy - Hyperkalemia ruddy - 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 EDMS EDMS 08:25 05:57 Abdomen Pelvis Wo Con+CT.RAD.BRZ ordered. EDMS EDMS 08:27 05:05 Head Brain Wo Cont+CT.RAD.BRZ ordered. EDMS EDMS 12:04 06:46 Telemetry/MedSurg (observation) ruddy iw 12:04 06:46 ruddy iw 14:57 12:04 BR ER HOLD iw bd 14:57 12:04 ERHOLD- iw bd
--- NOTE | 2021-06-19 06:47 | ER ---
Nurse's Notes 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 pt kd3 states that she is not being treated for it. pt also had a fall earlier today that she didn't come to the er for and is not having headache. pt on blood thinners. Coronavirus screen: Vaccine status: Patient reports receiving the 2nd dose of the covid vaccine. Ebola Screen: No symptoms or risks identified at this time. Initial Sepsis Screen: Does the patient meet any 2 criteria? No. Patient's initial sepsis screen is negative. Does the patient have a suspected source of infection? No. Patient's initial sepsis screen is negative. Risk Assessment: Do you want to hurt yourself or someone else? Patient reports no desire to harm self or others. Onset of symptoms was June 19, 2021. 05:06 Method Of Arrival: EMS: [facility] kd3 05:06 Acuity: ABDIRIZAK 3 kd3 Triage Assessment: 05:12 General: Appears uncomfortable, Behavior is calm, cooperative. Pain: Complains of pain kd3 in left hip and left leg and abdomen. Historical: - Allergies: 05:11 Iodinated Contrast Media - IV Dye; kd3 05:11 iopamidol; kd3 - PMHx: 05:11 breast cancer; chemotherapy; Hypertension; Tumor to groin area; kd3 - PSHx: 05:11 ovi mastectomy; hysterectomy; kd3 - Immunization history:: Adult Immunizations up to date, Client reports receiving the 2nd dose of the Covid vaccine, Flu vaccine is up to date. - Social history:: Smoking status: unknown. - Family history:: not pertinent. Screenin:12 Abuse screen: Denies threats or abuse. Denies injuries from another. Nutritional kd3 screening: No deficits noted. Tuberculosis screening: No symptoms or risk factors identified. Fall Risk Fall in past 12 months (25 points). IV access (20 points). Assessment: 05:13 Reassessment: Patient and/or family updated on plan of care and expected duration. Pain kd3 level reassessed. Patient is alert, oriented x 3, equal unlabored respirations, skin warm/dry/pink. General: Appears uncomfortable, Behavior is calm, cooperative. Pain: Complains of pain in left hip and left leg and abdomen. Neuro: Level of Consciousness is awake, alert, obeys commands, Oriented to person, place, time, situation. Cardiovascular: Patient's skin is warm and dry. Respiratory: Airway is patent Trachea midline Respiratory effort is even, unlabored. GI: No signs and/or symptoms were reported involving the gastrointestinal system. : No signs and/or symptoms were reported regarding the genitourinary system. EENT: No deficits noted. 08:25 Reassessment: Patient refusing to have CT scan done. jg9 Vital Signs: 05:06 BP 113 / 76; Pulse 102; Resp 17; Temp 97.8(O); Pulse Ox 99% on R/A; Weight 108.86 kg; kd3 Height 5 ft. 5 in. (165.10 cm); Pain 10/10; 06:55 BP 113 / 76; Pulse 115; Resp 12 S; Pulse Ox 100% on R/A; as6 05:06 Body Mass Index 39.94 (108.86 kg, 165.10 cm) kd3 ED Course: 04:58 Patient arrived in ED. ruddy 05:01 Jean Carlos Pinzon MD is Attending Physician. ruddy 05:05 Elias Burton, RN is Primary Nurse. as6 05:11 Triage completed. kd3 05:12 Arm band placed on right wrist. kd3 05:13 Patient has correct armband on for positive identification. Bed in low position. Call 3 light in reach. Side rails up X2. 05:27 Lactate Sent. as6 05:27 Type And Screen Sent. as6 05:27 Basic Metabolic Panel Sent. as6 05:27 CBC with Diff Sent. as6 05:27 LFT's Sent. as6 05:27 Magnesium Sent. as6 05:27 NT PRO-BNP Sent. as6 05:27 PT-INR Sent. as6 05:27 Troponin HS Sent. as6 06:21 XRAY Chest (1 view) In Process Unspecified. EDMS 06:21 Pelvis XRAY In Process Unspecified. EDMS 06:22 Femur Left XRAY In Process Unspecified. EDMS 06:41 Scott Coffey MD is Hospitalizing Provider. ruddy 07:00 Inserted saline lock: 18 gauge in left EJ, using aseptic technique. as6 15:55 No provider procedures requiring assistance completed. jh6 16:18 Patient admitted, IV remains in place. jg9 Administered Medications: 07:00 Drug: fentaNYL (PF) 50 mcg Route: IVP; Site: left jugular; kd3 08:23 Follow up: Response: No adverse reaction; Pain is unchanged, physician notified jg9 07:00 Drug: Zofran (Ondansetron) 4 mg Route: IVP; Site: left jugular; kd3 08:23 Follow up: Response: No adverse reaction; Nausea is decreased jg9 07:01 Drug: NS 0.9% 500 ml Route: IV; Rate: bolus; Site: left jugular; kd3 08:00 Follow up: IV Status: Completed infusion; IV Intake: 500ml jg9 08:05 Drug: NS 0.9% 1000 ml Route: IV; Rate: 125 ml/hr; Site: Other; jg9 08:10 Drug: Magnesium Sulfate 1 grams Route: IVPB; Infused Over: 1 hrs; Site: Other; jg9 09:15 Follow up: IV Status: Completed infusion; IV Intake: 100ml jg9 08:21 Drug: Zofran (Ondansetron) 4 mg Route: IVP; Site: Other; jg9 08:24 Follow up: Response: No adverse reaction jg9 08:22 Drug: Kayexalate (polystyrene) 30 grams Route: PO; jg9 10:57 Follow up: Response: No adverse reaction jg9 08:22 Drug: Dilaudid (HYDROmorphone) 1 mg Route: IVP; Site: Other; jg9 08:24 Follow up: Response: No adverse reaction; Pain is decreased; RASS: Alert and Calm (0) jg9 Intake: 08:00 IV: 500ml; Total: 500ml. jg9 09:15 IV: 100ml; Total: 600ml. jg9 Outcome: 06:46 Decision to Hospitalize by Provider. ruddy 15:56 Condition: stable [facility] 15:56 Instructed on the need for admit. 16:18 Admitted to Med/surg accompanied by nurse, via stretcher, room 411, Report called to génesis Alexandra RN 16:20 Patient left the ED. [email or web address] Signatures: Dispatcher [employer] EDMN Jean Carlos Pinzon MD MD cha Slawson, Ashby, RN RN as6 Stephenie Veliz RN RN kd3 Millie Vega RN RN jh6 Millie Camarillo RN RN jg9 Corrections: (The following items were deleted from the chart) 16:19 15:55 Admitted to Tele accompanied by tech, via stretcher, room 411, Report called to génesis diop rn jh6
[2021-06-19] MEDS ORDERED: SOD POLYSTYREN SUL 15 GM/60 ML UCUP ONE (07:36)
[2021-06-19] MEDS ORDERED: MAGNESIUM SULFATE 1 gm IVPB 1 GM/100 ML BAG IV ONE (07:36)
[2021-06-19] MEDS ORDERED: HYDROMORPHONE HCL 1 MG/ML INJ ONE ×2 (08:04→14:55)
--- NOTE | 2021-06-19 08:28 | EKG ---
Test Date: 2021-06-19 Test Time: 05:26:23 Chiropractic Practice Manager: JESUS MEASUREMENT RESULTS: Intervals: Rate: 114 OK: 144 QRSD: 88 QT: 344 QTc: 474 [place]: P: 65 OK: 144 QRS: 2 T: 106 INTERPRETIVE STATEMENTS: Sinus tachycardia ST & T wave abnormality, consider lateral ischemia Abnormal ECG Compared to ECG 05/10/2021 12:53:19 ST (T wave) deviation now present Sinus rhythm no longer present Sinus arrhythmia no longer present T-wave abnormality no longer present Possible ischemia still present Electronically Signed On 06-19-21 08:27:46 CDT by Antony Roca
[2021-06-19 09:20] LABS: Urine Blood Trace-intact (Negative); Urine Glucose Negative (Negative); Urine Protein 1+ (Negative); Urine Specific Gravity 1.025 (1.005-1.030)
[2021-06-19] MEDS ORDERED: NA CHLORIDE 0.9% 250 ML ONE ×2 (09:30→11:52)
--- NOTE | 2021-06-19 10:15 | RAD REPORT ---
EXAM DESCRIPTION: RAD - Pelvis - 06/19/2021 6:20 am RAD - Pelvis - 06/19/2021 6:20 am CLINICAL HISTORY: Hip pain FINDINGS: Right hip arthroplasty has been performed. Mild osteoarthritis left hip. No acute fracture or dislocation seen.
--- NOTE | 2021-06-19 10:16 | RAD REPORT ---
EXAM DESCRIPTION: RAD - Femur Left - 06/19/2021 6:20 am RAD - Femur Left - 06/19/2021 6:20 am CLINICAL HISTORY: Left leg pain FINDINGS: Mild osteoarthritis left hip. No fracture is seen. No bony destructive lesion visualized
--- NOTE | 2021-06-19 10:19 | RAD REPORT ---
EXAM DESCRIPTION: RAD - Chest Single View - 06/19/2021 6:20 am CLINICAL HISTORY: The patient is 61 years old and is Female; COUGH TECHNIQUE: Frontal view of the chest. COMPARISON: No relevant prior studies available. FINDINGS: Lungs: Mildly prominent interstitial markings bilaterally. No consolidation. Pleural space: Unremarkable. No pneumothorax. Heart: Unremarkable. Mediastinum: Unremarkable. Bones/joints: Degenerative changes involving the glenohumeral joints. IMPRESSION: Mildly prominent interstitial markings bilaterally. No consolidation. Electronically signed by: Shamar Ramirez MD 06/19/2021 6:35 AM CDT Due to temporary technical issues with the PACS/Fluency reporting system, reports are being signed by the in house radiologists without review as a courtesy to insure prompt reporting. The interpreting radiologist is fully responsible for the content of the report.
[2021-06-19] MEDS ORDERED: HYDROMORPHONE HCL 2 MG/ML inj IV PRN (11:06)
[2021-06-19] MEDS ORDERED: HYDROMORPHONE HCL 2 MG/ML inj ONE (11:15)
[2021-06-19] MEDS ORDERED: HYDROMORPHONE HCL 2 MG/ML inj IV ONE (11:18)
[2021-06-19] MEDS ORDERED: HYDROMORPHONE HCL 1 MG/ML INJ IV PRN (11:21)
[2021-06-19] MEDS ORDERED: ACETAMINOPHEN 325 MG TABLET ONE (11:58)
[2021-06-19] MEDS ORDERED: DIPHENHYDRAMINE 50 MG/ML VIAL ONE (11:59)
[2021-06-19] MEDS ORDERED: MORPHINE 2 MG/ML SYR IV PRN (12:12)
[2021-06-19] MEDS ORDERED: ACETAMINOPHEN 500 MG TAB PO PRN (12:12)
[2021-06-19] MEDS ORDERED: ONDANSETRON 4 MG/2 ML VIAL IV PRN (12:12)
[2021-06-19] MEDS: NA CHLORIDE 0.9% 1,000 ML IV SCH ×2 (13:00→16:56)
[2021-06-19 13:13] VITALS: BMI 39.9
[2021-06-19 17:00] LABS: Hematocrit 25.2 % (36.0-45.0)
[2021-06-19] MEDS: HYDROMORPHONE HCL 2 MG/ML inj IV PRN ×2 (17:40→21:35)
--- NOTE | 2021-06-19 18:08 | P.HP ---
Certification for Inpatient Patient admitted to: Inpatient With expected LOS: >2 Midnights Patient will require the following post-hospital care: None Practitioner: I am a practitioner with admitting privileges, knowledge of patient current condition, hospital course, and medical plan of care. Services: Services provided to patient in accordance with Admission requirements found in Title 42 Section 412.3 of the Code of Federal Regulations Patient History Date of Service: 06/19/21 Reason for admission: Anemia; hyperkalemia History of Present Illness: Patient is a 61-year-old female who came to the hospital with pain control. She has a sarcoma that is very large. She is also severely anemic. She is also hyperkalemic. She will be admitted to the hospital for further evaluation. Her prognosis is poor and she may need to proceed with hospice care. Allergies Iodinated Contrast Media Allergy (Mild, Verified 06/19/21 11:06) Nausea/Vomiting iopamidol [From Isovue-128] Allergy (Verified 01/03/21 00:13) Shortness of breath Home Medications: Gabapentin [Neurontin] 800 mg PO BID 12/07/20 Hydromorphone [Dilaudid*] 4 mg PO Q4HP PRN 12/07/20 Promethazine Tab [Phenergan*] 25 mg PO Q4H PRN 12/23/20 Docusate [Colace Cap*] 100 mg PO DAILY #30 cap 12/30/20 Apixaban [Eliquis] 5 mg PO BID tablet 01/12/21 Potassium Oral Tab [Klor-Con 10 mEq Tab*] 20 meq PO TID 02/13/21 Amiloride HCl [Midamor*] 5 mg PO BID #90 tablet 02/14/21 Furosemide [Lasix*] 40 mg PO DAILY #30 tab 02/15/21 fentaNYL [Fentanyl] 1 patch TOP SEECOM 05/10/21 Albuterol Neb [Proventil 0.083% Neb Soln] 2.5 mg NEB [id number] amp 05/16/21 Hydromorphone [Dilaudid*] 2 mg IV Q4H PRN vial 05/16/21 Ipratropium Neb [Atrovent*] 0.5 mg NEB [id number] amp 05/16/21 Pharmacy Consult 1 ea XX DAILYPRN PRN each 05/16/21 - Past Medical/Surgical History Has patient received pneumonia vaccine in the past: Yes Diabetic: No -: breast cancer -: liposarcoma -: HTN (resolved) -: Bilateral mastectomy -: hysterectomy -: R hip replacement Psychosocial/ Personal History: Retired, lives at home by self - Family History Mother Medical History: Diabetes Father Medical History: Cancer Notes: lung cancer Brother Medical History: Hypertension, Diabetes Sister Medical History: Heart disease, Diabetes Notes: cirrhosis - Social History Smoking Status: Never smoker Alcohol use: No CD- Drugs: No Caffeine use: Yes Review of Systems 10-point ROS is otherwise unremarkable Physical Examination - Vital Signs Temperature: 98.5 F Blood Pressure: 139/81 Pulse: 110 Respirations: 18 Pulse Ox (%): 100 - Physical Exam General: Alert, In no apparent distress, Oriented x3 HEENT: Atraumatic, PERRLA, Mucous membr. moist/pink, EOMI, Sclerae nonicteric Neck: Supple, 2+ carotid pulse no bruit, No LAD, Without JVD or thyroid abnormality Respiratory: Clear to auscultation bilaterally, Normal air movement Cardiovascular: Regular rate/rhythm, Normal S1 S2, No murmurs Gastrointestinal: Normal bowel sounds, Soft and benign, Non-distended, No tenderness Musculoskeletal: Tenderness Integumentary: Tenderness/swelling Neurological: Normal speech, Normal strength at 5/5 x4 extr, Normal tone, Sensation intact, Cranial nerves 3-12 intact, Normal affect, Abnormal gait Lymphatics: No axilla or inguinal lymphadenopathy - Studies Laboratory Data (last 24 hrs) 06/19/21 05:21: PT 17.1 H, INR 1.54 06/19/21 05:21: WBC 5.6, Hgb 7.2 L, Hct 22.5 L, Plt Count 182 06/19/21 05:21: Sodium 137, Potassium 5.3 H, BUN 25 H, Creatinine 1.98 H, Glucose 78, Magnesium 1.5 L, Total Bilirubin 0.4, AST 10 L, ALT < 10 L, Alkaline Phosphatase 68 Assessment & Plan - Problems (Diagnosis) (1) Anemia due to acute blood loss Current Visit: No Status: Acute (2) Generalized weakness Current Visit: No Status: Acute (3) Heart failure with normal ejection fraction Current Visit: No Status: Acute (4) Hypokalemia Current Visit: No Status: Acute (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 Pain control 2. Transfused 2 units of packed red blood cells 3. Monitor potassium 4. Hospice arrangements 5. GI and DVT prophylaxis Discharge Plan: Other Plan to discharge in: Greater than 2 days - Advance Directives Does patient have a Living Will: Yes Does patient have a Durable POA for Healthcare: Yes - Code Status/Comfort Care Code Status Assessed: Yes Code Status: Full Code Critical Care: No Time Spent Managing PTS Care (In Minutes): 45
[2021-06-20] MEDS: HYDROMORPHONE HCL 2 MG/ML inj IV PRN ×7 (01:05→23:35)
[2021-06-20 03:05] VITALS: O2SAT 100
[2021-06-20 04:07] LABS: Absolute Lymphocytes (CBC) 0.6 K/uL (0.7-4.9); Lymphocytes % 8.6 % (15.3-44.8); MPV 7.1 fL (7.6-11.3)
[2021-06-20 04:19] LABS: AST/SGOT 6 U/L (15-37); Albumin 2.4 g/dL (3.4-5.0); Alkaline Phosphatase 62 U/L (45-117); BUN Blood Urea Nitrogen 20 mg/dL (7-18); Bicarbonate 20 mmol/L (21-32); Bilirubin Total 0.5 mg/dL (0.2-1.0); Glucose Level 78 mg/dL (74-106); Potassium 4.6 mmol/L (3.5-5.1); Protein, Total 6.5 g/dL (6.4-8.2); Sodium Level 139 mmol/L (136-145)
[2021-06-20 04:22] LABS: ALT/SGPT < 10 U/L (12-78)
[2021-06-20] MEDS: NA CHLORIDE 0.9% 1,000 ML IV SCH (08:44)
[2021-06-20] MEDS ORDERED: HYDROMORPHONE HCL 2 MG/ML inj IV ONE (17:39)
[2021-06-20] MEDS ORDERED: FENTANYL 25 MCG/PATCH TD ONE (18:00)
[2021-06-21] MEDS ORDERED: HYDROCODONE/APAP 10/325 TAB PO ONE (00:41)
--- NOTE | 2021-06-21 02:26 | P.PN ---
Subjective Date of Service: 06/20/21 Subjective: No new changes Pain is poorly controlled; patient agreeable for hospice Review of Systems 10-point ROS is otherwise unremarkable Physical Examination - Vital Signs Temperature: 98 F Blood Pressure: 147/74 Pulse: 100 Respirations: 20 Pulse Ox (%): 96 - Physical Exam General: Alert, In no apparent distress, Oriented x3, Other (Pain is poorly controlled) Respiratory: Clear to auscultation bilaterally, Normal air movement Cardiovascular: Regular rate/rhythm, Normal S1 S2, No murmurs Gastrointestinal: Normal bowel sounds, Soft and benign, Non-distended, No tenderness Musculoskeletal: No clubbing, No swelling, Tenderness Integumentary: Erythema Neurological: Sensation intact, Cranial nerves 3-12 intact - Studies Medications List Reviewed: Yes Assessment & Plan - Problems (Diagnosis) (1) Anemia due to acute blood loss Current Visit: No Status: Acute (2) Generalized weakness Current Visit: No Status: Acute (3) Heart failure with normal ejection fraction Current Visit: No Status: Acute (4) Hypokalemia Current Visit: No Status: Acute (5) Liposarcoma Current Visit: No Status: Chronic - Plan Plan: Continue with plan of care as mentioned below: 1. Pain control; poorly controlled. Added fentanyl. 2. Transfused 2 units of packed red blood cells; hemoglobin stable 3. Monitor potassium 4. Hospice arrangements pending 5. GI and DVT prophylaxis - Advance Directives Does patient have a Living Will: Yes Does patient have a Durable POA for Healthcare: Yes - Code Status/Comfort Care Code Status: Full Code
--- NOTE | 2021-06-21 02:28 | P.PN ---
Date of Service: 06/21/21 Subjective Patient is clinically doing better. We will go ahead and arrange for hospice. Pain is poorly controlled; patient agreeable for hospice Review of Systems 10-point ROS is otherwise unremarkable Physical Examination - Vital Signs Reviewed - Physical Exam General: Alert, In no apparent distress, Oriented x3, Other (Pain is poorly controlled) Respiratory: Clear to auscultation bilaterally, Normal air movement Cardiovascular: Regular rate/rhythm, Normal S1 S2, No murmurs Gastrointestinal: Normal bowel sounds, Soft and benign, Non-distended, No tenderness Musculoskeletal: No clubbing, No swelling, Tenderness Integumentary: Erythema Neurological: Sensation intact, Cranial nerves 3-12 intact Assessment & Plan - Problems (Diagnosis) (1) Anemia due to acute blood loss Current Visit: No Status: Acute (2) Generalized weakness Current Visit: No Status: Acute (3) Heart failure with normal ejection fraction Current Visit: No Status: Acute (4) Hypokalemia Current Visit: No Status: Acute (5) Liposarcoma Current Visit: No Status: Chronic - Plan Continue with plan of care as mentioned below: 1. Pain control; poorly controlled. Added fentanyl. 2. Transfused 2 units of packed red blood cells; hemoglobin stable 3. Monitor potassium 4. Hospice arrangements pending 5. GI and DVT prophylaxis - Advance Directives Does patient have a Living Will: Yes Does patient have a Durable POA for Healthcare: Yes - Code Status/Comfort Care Code Status: Full Code
[2021-06-21] MEDS: NA CHLORIDE 0.9% 1,000 ML IV SCH ×2 (03:13→22:52)
[2021-06-21] MEDS: HYDROMORPHONE HCL 2 MG/ML inj IV PRN ×7 (03:17→22:42)
[2021-06-22] MEDS: HYDROMORPHONE HCL 2 MG/ML inj IV PRN ×4 (01:34→10:49)
[2021-06-22 04:24] VITALS: BP 164/94
[2021-06-22 08:00] VITALS: TEMP 99.5
== END 2021-06-22 11:22 | disposition hospice, inpatient (51) | DRG 812 ==
LOC: ER 04:54 → ERHOLD 12:12 → 4TH 15:12
PROVIDERS: ADMIT Hospitalist; ATTEND Hospitalist
PROC: 30233N1 Transfusion of Nonautologous Red Blood Cells into Peripheral Vein, Percutaneous Approach (ICD-10-PCS; principal; 2021-06-19)
PROC: 05HQ33Z Insertion of Infusion Device into Left External Jugular Vein, Percutaneous Approach (ICD-10-PCS; 2021-06-19)
DX: D62 Acute posthemorrhagic anemia (principal); C49.22 Malignant neoplasm of connective and soft tissue of left lower limb, including hip; I50.30 Unspecified diastolic (congestive) heart failure; R53.1 Weakness; E87.5 Hyperkalemia; Z85.3 Personal history of malignant neoplasm of breast; Z96.641 Presence of right artificial hip joint; Z20.822 Contact with and (suspected) exposure to COVID-19
CPT/HCPCS: 36415; 71045; 72170; 80048; 80053; 80076; 81003; 83605; 83735; 83880; 84484; 85014; 85018; 85025; 85610; 86850; 86900; 86901; 87086; 87088; 93005; 99285; J1170; J1200; J2405; J3010; J3475; J7030; J7040; J7050; P9016; U0003

== ENCOUNTER 2021-06-22 11:23 | Inpatient (IN) | payer OTHER ==
[2021-06-22] MEDS ORDERED: MAGNESIUM HYDROXIDE 8% 30 ML PO PRN (11:26)
[2021-06-22] MEDS ORDERED: ONDANSETRON 4 MG/2 ML VIAL IV PRN (11:26)
--- OUTSIDE RECORDS SUMMARY | 2021-06-22 11:36 | XMS REPORT | Continuity of Care Document ---
:1960 Author Organization [facility] t Address [address] [place] [address] Care Team Providers Name Role Phone KALINA [...] Attending Clinician Isabelle Ramos MD Attending Clinician [phone] Lazaro LYNN Attending Clinician ANA PAULA TAVARES Attending Clinician Unavailable STEVE GARCIA Attending Clinician Unavailable Nile TEJADA Admitting Clinician Unavailable SCOTT Admitting Clinician Unavailable JAVI BRAY Admitting Clinician Unavailable LEONOR Admitting Clinician Unavailable BOOM CARLIN Admitting Clinician Unavailable NARGIS Admitting Clinician Unavailable STEVE GARCIA Admitting Clinician Unavailable Payers Payer Name Policy Type Policy Number Effective Date Expiration Date Vinny nava MEDICARE A B [id number] AET[employer] OPEN ACCESS [id number] 2017 HMO NAP 00:00:00 AARP MEDICARE [id number] 2020 COMPLETE CHOICE 00:00:00 PLAN 2 [facility] [id number] [address] [facility] - MEDICARE MGD 00:00:00 - Medical [facility] [id number] 2020-Present [employer] MEDICARE [id number] 2021 ADVANTAGE 00:00:00 MEDICARE PART A [id number] 2020 AND B 00:00:00 Problems Condition Condition [...] 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[facility] oste[facility] osteoarthr 8[address] Bret kes - itis itis 00:00: Medical [...] Stop Date Source Natural father Lung cancer [facility] Natural mother Diabetes [facility] Social History Social Habit Start Date Stop Date Quantity Comments Source Sex Assigned At [facility] Tobacco use and 2017-11-18 2017-11-18 Never used [facility] Bret hendricks - exposure 00:00:00 00:00:00 [facility] Center Alcohol intake 2017-11-18 2017-11-18 Current drinker HOMAR Rodriguez - 00:00:00 00:00:00 of alcohol [facility] (finding) Alcohol Comment 2017-10-06 2017-10-06 SOCIALLY HOMAR Diop - 00:00:00 00:00:00 Medical Center Smoking Status Start Date Stop Date Source Never smoker [facility] Medications Ordered Filled Start Stop Current [...] [address] [address] e glycol -07 09-27 by mouth [facility] - (GLYCOLAX) 00:00: [...] Max Daily Amount: 12 mg cyclobenzap 2020-0 202- No 10mg Take [address] [facility] rine -06 10-03 tablet (10 [facility] - (FLEXERIL) 00:00: 23:59 mg total) M edical 10 MG 00 :00 by mouth 3 Center tablet (three) times daily as needed for Muscle spasms for up to 10 days. HYDROmorpho 2021-0 2021- No 2mg Take [address] [facility] ne [...] 12 (twelve) hours for 30 days. enoxaparin 202-0 2020- No 140mg Inject [facility] (LOVENOX) 09-06- 0.93 mLs [facility] - 150 mg/mL 00:00: 00:00 (140 mg Medi perla injection 00 :00 total) [facility] every 12 (twelve) hours for 30 days. [...] meropenem 1 gram SolR 1 g sodium 2018 Yes 1g Inject 1 g [facility] chloride - intravenou [facility] - 0.9% (NS) 00:00: sly every Med ical PF Soln 20 00 8 (eight) Cent er mL with hours. meropenem 1 gram SolR 1 g sodium 2018 Yes 1g Inject 1 g [facility] [...] blood 2020-09-06 16:21:00 161 mm[Hg] [facility] Diastolic blood 2020-09-06 16:21:00 75 mm[Hg] [facility] Heart rate 2020-09-06 16:21:00 87 /min [facility] Body temperature 2020-09-06 16:21:00 35.78 Lovely [facility] Respiratory rate 2020-09-06 16:21:00 18 /min [facility] Oxygen saturation in 2020-09-06 16:21:00 97 /min [facility] Arterial blood by Medical Ce nter Pulse oximetry Body weight 2020-09-06 06:00:00 141.658 kg [facility] BMI 2020-09-06 06:00:00 50.41 kg/m2 [facility] Body height 2020-08-20 18:00:00 167.6 cm [facility] Procedures Procedure Date / Time Performed Performing Clinician [facility] e CT CHEST WITH IV CONTRAST 2020-09-05 12:35:00 Vandana Tejada [facility] COMPREHENSIVE METABOLIC 2020-09-05 05:16:00 Vandana Tejada [facility] 2D ECHO W/ DOPPLER 2020-09-05 01:05:41 Vandana Tejada [facility] (CW/PW/COLOR) [facility] SARS-COV2/RT-PCR ([facility] & 2020-09-03 21:48:00 Tricia Ramos [facility] - REF LABS) [facility] CBC W/PLT COUNT & AUTO 2020-09-03 06:17:00 Vandana Tejada CH I [facility] CBC (HEMOGRAM ONLY) 2020-09-02 04:36:00 Raegan [facility] PROTHROMBIN TIME/INR 2020-09-02 04:36:00 [facility] CBC (HEMOGRAM ONLY) 2020-09-01 03:48:00 [facility] PROTHROMBIN TIME/INR 2020-09-01 03:48:00 [facility] US CORE BIOPSY 2020-08-31 18:48:00 Vandana Tejada [facility] TISSUE EXAM 2020-08-31 18:37:00 Vandana Tejada [facility] VITAMIN B12 AND FOLATE 2020-08-31 04:45:00 Vandana Tejada CH [facility] CBC (HEMOGRAM ONLY) 2020-08-31 04:45:00 [facility] PROTHROMBIN TIME/INR 2020-08-31 04:45:[address] [facility] CT ABDOMEN/PELVIS WITH IV 2020-08-30 10:28:00 [facility] CTA AAA AND RUNOFF 2020-08-30 10:28:00 [facility] BUN AND CREATININE 2020-08-30 05:17:00 [facility] W/[facility] CBC (HEMOGRAM ONLY) 2020-08-30 05:17:00 [facility] PROTHROMBIN TIME/INR 2020-08-30 05:17:00 [facility] HC ARTERIAL DOPPLER LEG 2020-08-29 16:05:00 [facility] CBC (HEMOGRAM ONLY) 2020-08-29 12:50[facility]00 [facility] 2020-08-29 12:50:00 [facility] - MOLECULAR WEIGHT [facility] CBC (HEMOGRAM ONLY) 2020-08-29 05:03:00 Raegan [facility] PROTHROMBIN TIME/INR 2020-08-29 05:03:[address] [facility] BUN AND CREATININE 2020-08-28 16:37:00 Traceyerlakhwinder [facility] - W/RATIO [facility] VENOUS DOPPLER LEG, LEFT 2020-08-28 12:43:00 Gadirvinerlakhwinder Tricia C [facility] CBC (HEMOGRAM ONLY) 2020-08-28 04:42:00 [facility]R 2020-08-28 04:42:00 [facility] SARS-COV2/RT-PCR ([facility] & 2020-08-27 18:10:00 GadirvinertnHumbertoal C [facility] - REF LABS) [facility] PROTHROMBIN TIME/INR 2020-08-27 12:22:[address] [facility] CBC (HEMOGRAM ONLY) 2020-08-27 04:06:00 [facility] PROTHROMBIN TIME/INR 2020-08-26 11:47:00 [facility] CBC (HEMOGRAM ONLY) 2020-08-26 11:47:00 [facility] ([facility] ONLY[facility] 2020-08-26 06:00:00 [facility] PROTHROMBIN TIME/INR 2020-08-25 18:11:00 SunKinga [facility] CBC W/PLT COUNT & AUTO 2020-08-25 14:27:00 [facility] (HEMOGRAM ONLY) 2020-08-25 06:58:00 [facility] APTT 2020-08-25 06:49:00 [facility] APTT 2020-08-24 22:45:00 [facility] 2020-08-24 12:42:00 [facility] BASIC METABOLIC PANEL (7) 2020-08-24 05:41:00 [facility] CBC (HEMOGRAM ONLY) 2020-08-24 05:41:00 Hari Carlin [facility] APTT 2020-08-24 05:41:00 [facility] AP[facility] 2020-08-23 21:14:00 [facility] (HE[facility]GRAM ONLY) 2020-08-23 14:11:00 [facility] 2020-08-23 14:11:00 [facility] VENOUS DOPPLER LEG, LEFT 2020-08-23 12:46:00 [facility] BASIC METABOLIC PANEL (7) 2020-08-23 04:08:00 [facility] CBC (HEMOGRAM ONLY) 2020-08-23 04:08:00 Hrai Carlin [facility] BASIC METABOLIC PANEL (7) 2020-08-22 05:37:00 Boris, Tom [facility] CBC (HEMOGRAM ONLY) 2020-08-22 05:37:00 Hari Carlin [facility] US EXTREMITY NON-VASCULAR 2020-08-21 14:30:00 Hari Carlin [facility] CBC (HEMOGRAM ONLY) 2020-08-21 05:50:00 Hari Carlin [facility] COMPREHENSIVE METABOLIC 2020-08-21 05:50:[address] [facility] PROTHROMBIN TIME/INR 2020-08-21 05:50:00 Hari [facility]lin [facility] XR HIP 2 VIEWS LEFT 2020-08-20 18:25:00 Hari Carlin [facility] XR LUMBAR SPINE 2 OR 3 2020-08-20 18:20:00 Hari Carlin [facility] XR KNEE 3 VIEWS LEFT 2020-08-20 18:14:00 Hari Carlin [facility] CBC W/PLT COUNT & AUTO 2020-08-20 15:02:00 Hari Carlin [facility] COMPREHENSIVE METABOLIC 2020-08-20 15:02:[address] [facility] MAGNESIUM 2020-08-20 15:02:00 Hari Carlin [facility] PHOSPHORUS 2020-08-20 15:02:00 RaeganHari [facility] LACTATE DEHYDROGENASE 2020-08-20 15:02:[address] [facility] URIC ACID 2020-08-20 15:02:00 RaeganHari [facility] Plan of Care Planned Activity Planned Date [...] Medica l Center colon (procedure) [code = 425288076] Future Scheduled 2018-11-[address] [facility] - Test 00:00:00 malignant neoplasm of [facility] Center colon (procedure) [code = 601387057] Future Scheduled 2018-11-[address] [facility] - Test 00:00:00 malignant neoplasm of [facility] Center colon (procedure) [code = 349964147] Future Scheduled 2017-10-[address] Bret kes - Test 00:00:00 measurement Medical Center (procedure) [code = 93389481] Future Scheduled 2017-10-[address] Bret kes - Test 00:00:00 measurement Medical Center (procedure) [code = 32888731] Future Scheduled 2017-10-[address] Bret kes - Test 00:00:00 measurement Medical Center (procedure) [code = 20196066] Future Scheduled 2010 SHINGLES VACCINES (1 CHI [...] s - Test 00:00:00 (procedure) [code = [facility] 85897689] Future Scheduled [address] [facility] - Test 00:00:00 (procedure) [code = [facility] 67752412] Future Scheduled [address] [facility] - Test 00:00:00 (procedure) [code = [facility] 80791582] Future Scheduled [address] [facility] - Test 00:00:00 [facility] (procedure) [code = 990074687] Future Scheduled [address] [facility] - Test 00:00:00 [facility] (procedure) [code = 983655622] Future Scheduled [address] [facility] - Test 00:00:00 [facility] cervix (procedure) [code = 670002973] Future Scheduled 1979 DTAP/TDAP/TD VACCINES CH I [...] 00:00:00 examination Medical Center (regime/therapy) [code = 442587337] Future Scheduled 1970 Urine screening [facility] - Test 00:00:00 protein (procedure) Medical Center [code = 554226044] Future Scheduled 1970 DIABETIC EYE EXAM [facility] - Test 00:00:00 [code = DIABETIC EYE Medical Center EXAM] Future Scheduled [address] [facility] - Test 00:00:00 examination Medical Center (regime/therapy) [code = 578793530] Future Scheduled 1970 Urine screening [facility] - Test 00:00:00 protein (procedure) Medical Center [code = 800248134] Future Scheduled [address] DIABETIC EYE EXAM [facility] - Test 00:00:00 [code = DIABETIC EYE Medical Center EXAM] Future Scheduled [address] - Test 00:00:00 examination Medical Center (regime/therapy) [code = 590522295] Future Scheduled 1970 Urine screening [facility] - Test 00:00:00 protein (procedure) Medical Center [code = 100317653] Future Scheduled [address] [...] - Test 00:00:00 malignant neoplasm of [facility] breast (procedure) [code = 590543900] Future Scheduled [address] [facility] - Test 00:00:00 malignant [facility] breast (procedure) [code = 313964133] Future Scheduled [address] [facility] - Test 00:00:00 malignant neoplasm of [facility] breast (procedure) [code = 695541049] Encounters Start End Encounter Admission Attending Care Care Encounter Source Date/Time Date/Time Type Type Clinicians Facility Department ID 2020-12-24 Inpatient ER BLANCA, [facility] [id number] [facility] 00:09:17 VANDANA 2020-11-21 Outpatient SYSTEM, JUAN MARTINEZ [id number] 11:08:21 PROVIDER Holland o lashonda 2020-11-02 Inpatient EL CRISTY, JUAN MARTINEZ [id number] 23:20:41 GAURAV And erso R n 2020-11-02 Inpatient THEA CHELUJAN MDA [id number] 23:20:37 CLAYEYASKUMA And erso R n 2020-10-28 [facility] [id number] 00:00:00 Encounter [facility] 2020-10-17 Outpatient SYSTEM, JUAN MARTINEZ [id number] 12:21:12 PROVIDER Holland o lashonda 2021-05-09 2021-05-09 Outpatient THEA BRAY MDA MDA [id number] 11:00:00 23:59:00 RONALD nixo lashonda 2021-05-09 2021-05-09 Outpatient EVA NELSON MDA MDA [id number] 13:35:48 15:28:02 Holland o lashonda 2021-04-03 2021-04-24 Inpatient ER DARLENE BELLE MDA [facility] [id number] 15:10:00 12:50:00 Holland o lashonda 2021-04-23 2021-04-23 Inpatient EL JUAN MELISSA MDA [id number] 04:19:54 04:42:38 BRENDAN Lino o lashonda 2021 2021 Inpatient THEA VILLAVICENCIO MDA MDA [id number] 17:08:59 17:35:08 BIJU gallego 2021-04-18 2021-04-18 Inpatient THEA MELISSA, MDA MDA [id number] 09:21:00 09:41:51 BRENDAN gallego 2021-04-17 2021-04-17 Inpatient BALWINDER SHINOD MDA MDA [id number] 03:37:16 03:55:45 Holland gallego 2021-04-15 2021-04-15 Inpatient DIONTE, MDA MDA [id number] 22:08:23 22:34:52 BOB gallego 2021-04-13 2021-04-13 [facility] [id number] MD 08:40:41 09:10:01 BOB gallego 2021-04-11 2021-04-11 [facility] MDA [id number] MD 02:08:42 02:31:26 BOB gallego 2021-04-09 2021-04-10 Inpatient PRISCILLA, MDA MDA [id number] 23:08:04 00:00:29 BOB gallego 2021-04-09 2021-04-09 Inpatient PRISCILLA, MDA MDA [id number] MD 17:32:06 18:10:07 BOB gallego 2021-04-08 2021-04-08 [id number] 18:04:44 18:36:32 BRETT Abarca so lashonda 2021-04-08 2021-04-08 [facility] [id number] 15:56:48 17:31:59 BRETT Abarca 2021-04-08 2021-04-08 Inpatient YALAMANCHVA MDA MDA [id number] 15:56:44 17:31:57 BRETT Abarca 2021-04-06 2021-04-06 Inpatient THEA CHAVEZ, MDA MDA [id number] MD 13:57:21 14:18:48 SUE gallego 2021-04-06 2021-04-06 Inpatient THEA VILLAVICENCIO, MDA MDA [id number] MD 11:21:56 12:02:57 BIJU gallego 2021-04-03 2021-04-03 Inpatient EL SCOTT, MDA MDA [id number] MD 22:23:50 22:40:30 SUE gallego 2021-04-03 2021-04-03 Outpatient EL MUNIZ, MDA MDA [id number] MD 14:49:10 15:17:14 GAURAV Ferreira derso R n 2021-03-06 2021-03-06 Outpatient EL NICK, MDA MDA [id number] 13:20:00 23:59:00 KRYSTA gallego 2021-03-06 2021-03-06 Outpatient EL ASAF, MDA MDA [id number] 12:54:39 13:19:00 CLAUDIA gallego 2021-03-06 2021-03-06 Outpatient EL MUNIZ, MDA MDA [id number] MD 09:00:00 12:53:00 GAURAV Ferreira derso R n 2021-03-06 2021-03-06 Outpatient EL MUNIZ, MDA MDA [id number] 10:05:13 11:24:37 GAURAV Ferreira derso R n 2021-03-02 2021-03-02 Outpatient EL ASAF, MDA MDA [id number] 11:00:00 23:59:00 CLAUDIA gallego 2021-03-01 2021-03-01 Outpatient EL ASAF, MDA MDA [id number] MD 11:57:34 12:10:03 CLAUDIA gallego 2021-03-01 2021-03-01 Outpatient EL MUNIZ, MDA MDA [id number] MD 12:08:46 12:08:46 GAURAV An derso R n 2021-02-20 2021-02-20 Outpatient EL MUNIZ, MDA MDA [id number] 12:57:43 17:49:39 GAURAV An derso R n 2021-02-16 2021-02-16 Outpatient EL MUNIZ, MDA MDA [id number] MD 08:46:05 08:46:05 GAURAV An derso R n 2021-02-16 2021-02-16 Outpatient EL MUNIZ, MDA MDA [id number] MD 08:46:01 08:46:01 GAURAV rosalesso R n 2021-02-14 2021-02-14 Outpatient EL NICK, MDA MDA [id number] 16:13:03 16:13:03 KRYSTA Sandra so n 2021-02-14 2021-02-14 Outpatient EL NICK, MDA MDA [id number] MD 16:11:50 16:11:50 KRYSTA Sandra so n 2020-10-28 2020-11-03 Inpatient UR MUNIZ, MDA [facility]coma [id number] MD 08:47:00 13:55:00 CLAYCHAS rosalesso R n 2020-11-03 2020-11-03 Inpatient EL MAYE, MDA MDA [id number] MD 08:41:05 09:10:15 BIJU gallego 2020-11-02 2020-11-02 Inpatient EL MUNIZ, MDA MDA [id number] MD 22:10:35 22:18:01 NAZARIOCANDELARIO Ferreira derso R n 2020-11-02 2020-11-02 Inpatient EL MAYE, MDA MDA [id number] MD 17:03:33 19:31:59 BIJU singleton n 2020-11-02 2020-11-02 Inpatient EL MUNIZ, MDA MDA [id number] MD 08:16:22 08:26:03 CLAYCHAS Ferreira derso R n 2020-10-31 2020-10-31 Inpatient EL STEFANO, MDA MDA [id number] MD 15:19:32 21:47:10 BAL gallego 2020-10-30 2020-10-30 Inpatient EL MUNIZ, MDA MDA [id number] MD 04:31:13 04:49:40 GAURAV Hanna derso R n 2020-10-29 2020-10-29 Inpatient EL STEFANO, MDA MDA [id number] MD 18:24:24 19:40:21 BAL gallego 2020-10-29 2020-10-29 Inpatient EL SCOTT, MDA MDA [id number] MD 18:24:28 19:36:56 SUE gallego 2020-10-29 2020-10-29 Inpatient EL SCOTT, MDA MDA [id number] MD 10:00:26 10:24:36 SUE gallego 2020-10-28 2020-10-28 Inpatient EL SCOTT, MDA MDA [id number] MD 22:30:59 22:52:26 SUE gallego 2020-10-28 2020-10-28 Emergency EL KATARINA, MDA MDA [id number] MD 10:57:00 11:46:41 BRENDAN gallego 2020-10-14 2020-10-23 Inpatient ER SCOTT, MDA [facility]coma [id number] MD 16:40:00 16:38:00 SUE gallego 2020-10-21 2020-10-21 Inpatient [facility], MDA MDA [id number] MD 18:46:01 19:27:32 BOB Lino o lashonda 2020-10-21 2020-10-21 Inpatient [facility], MDA MDA [id number] MD 14:16:27 14:16:55 BOB Lino o lashonda 2020-10-20 2020-10-20 Inpatient [facility], MDA MDA [id number] 20:10:36 20:13:24 BOB Lino o lashonda 2020-10-17 2020-10-17 Inpatient MAYE, MDA MDA [id number] MD 15:00:32 15:42:49 BIJU gallego 2020-10-16 2020-10-16 [facility] MDA [id number] 09:18:38 09:49:47 BOB gallego 2020-10-15 2020-10-15 Inpatient [facility], MDA MDA [id number] MD 11:01:50 11:06:18 BOB Lino o lashonda 2020-10-14 2020-10-14 Emergency LEONOR, MDA MDA [id number] MD 19:53:40 20:54:56 ALEXYS gallego 2020-10-14 2020-10-14 Emergency EL STEVEN MARTINEZ MDA MDA [id number] MD 17:59:26 17:59:31 Holland gallego 2020-08-20 2020-09-06 [facility] ER Vandana Tejada [facility] [id number] 13:34:00 17:17:[address] [facility] Bryant Willis 2020-08-20 2020-08-20 Travel [facility] [id number] [facility] 00:[facility] 00:00:00 [facility] Results Test Description Test Time Test Comments Results Result Comments Source Tissue Exam 2020-09-14 10:56:00 Test Item Value Reference Range Interpretation Comme nts Case Report (test code = 104) Surgical Pathology Report Case: [id number] Authorizing Provider: Vandana Tejada MD Collected: 08/31/2020 06:37 PM Ordering Location: [address] Received: 09/01/2020 08:13 AM Service Pathologist: Thien Radford MD Specimen: Groin, Left, left iliopsoas mass biopsy ADDENDUM (test code = 3381) [id number] pRWxumVYqrlAfig58uHV2sC01SU4tNJEnYqF0PP RspcF6Hff6XGVkCGDlgUSzI676p0syp3pwtdLnp HP5iKoaLUDzTLWaANzlCGRaSpQqCM6deX4hdSle eX3dbLCqbGYmvZXplAXzrANoURLlsgJfom4cSQP bctEwzZ3uojFZZZXiMG1jkhI1uyP2WRU7nXZbsr FicMrqh0FuTrDlWKautqU8olNlBKLpg0YezKm3P JXet4DoR9QsBE6nQJwkgNQhqsTzncNsSFVdcqYo Pm1nKYzukcA5yV8hTTPlTPRxONPsa72wpghuEJ4 ZLCZbiA5yoWkfqNWzE1mzKCPkdQifDPdWNSXwBD CQJWO1OKNlegQfG0URAPThQKTvm7dlTgFvRFBvd nRthU5tHVbgYpsqW6daWwtqrLWpjzSpuLYcbUHo UQKunlshymdzMpOpeHQkENL6zfB9LRDnAUobOUT ndIFyZZVuZTGePR9ctYNvwIdnEECkeEekOEOqBG SmvkOiUFUrg07jmDUlnCNgrZe7d6qwKYKoROX8u pGfQTDmIMNiQUMfNLCfyDXsQU4cNCBvDNTlzdMi zDUbIkTRaUNaOLTinuMjeh5mxnNsMBftaRHsdoB rrYExvAWbwQx5y9DkJhRclFh7nkLpDFEaVZNiii PhDOfrn2R8JIVuwBrcoiQddQOdVI8pJOVgPJVuJ iLkIHMcp0Yrww4rqSZoNXYltiRKriZzBTodVYM3 sFJybgR9qTIvJX8oGXDnNQUyXVGem63cjREyrY8 kJQPshf4hnpW9UVEjg1zbxbJePWkgBYJkch8bYX DftZ5rPjLwsAZnqVglNI17CyudOCMonBDuREDuc EDjF1IgTLM8tOvaILKgEBWuCzFrycXvSSIfGD3V EFZvPIMnh19lNZEaivAdz16tpWo7MGWdr75sFGF eIGOhFISwHUPiEJLenC6rlKU9pSgwRESavXubgl 2shLSoZLAtttHJvbXjIAZhtBYalE9ilbHseWNuD NVkDUz3SYDuHoVGvV4eUAIyPV6wN9xhHVdnmyro YXJ9 DIAGNOSIS (test code = 3220) z1niqLDtHRIfm6wiLTDzgQQcEtMqQoHqDwFcRp p cdWMxIHtccnRmMVxlcGljOTIwMlxhbnNpXHNwbH PhR6HybkpkVKaeDE4vJP2eiFhouEVmhKPbFXMgP kFlc3aov414iYDjd8xjVBUHsfjrlRa4yWfaO29j j3F5WnuqK23ugWOjDCredDMrmyemjxUkNLOELaD oJAORPBDYOUzOVX2LQ95DGrXNOLWTBWAOBW4TB8 q4ENJqbjBVMQdSCLkPNRZQOQmbZdUKTHcOB53nC HAqddLVYP2PPIOEOlWCMvXQBQDKJArRLqCSVS8H MP6KPTgFPMQWF0HOXD8BADaZUY3HBndtTPRkLHF YDB8FKH6uPzROJ2IPOPWLLBCWKLqZPq0wSKIicm 76UCB4VjLny8C9LPU8IGLaZQXhy1heEKXlzYOeT aGtQaTmNlKhZdjhvSZfNYUmRnZwd7xzf794dDNg h7awHGHgYgS1cUFzYSPryQEeP455YDWjISmme6y ag1MjVDTsmLNiq6T7PDRIninxyPv3bJjiT88km7 L4ZxxzF6cwSUPfRPWcD5QiBF7uELOhXyp2QGL3C YB6XUXdSOKjG3HrAS8dQNDfsFVgHHi6i3uezYfs OXRbIIK7o4zpTLraysDjRC2ryp1kyQn3b5wjtsV bWZHbYUAfpFJLYSVpQ1XknMvdTt8fpQs3gWbvNr qqJJH2Ezi7GO3zkc85tqc6gDrsHRHuzffqNsX7R RqnBXMmanriLNh7BQnjZACbxTO8EPPzxEIsS5Rk SDTiIH0acfh2EQK5KDpsIAAvDoX4PDKwbRIyIGD ztPklFIaio160LJE1FqTsLG0dS3Rmd1H8zS0byJ MzNOPriEHnMzWlBZXayt5jrWLlWUnvh2YjEAU0n dC8hIRcxPLdECXnFoD8PJfeWP1icg42ADKfQOV7 kx6xjJCpiTjjdeIkgFCdUQzeL9AgTHYru986HAU xJ9CoTHVir4T5veMbXfYnKQMqpRV8naV1LKVcAZ 5twlcht4vnXPfdYQwiLRNppiT8juV3ASEopETsY 7HrhE8cUKWoNB8ejtmih4klGPC0PWtrUFQgRZO6 BmIoJMBup5Ovabq4LkUek8NygRFiDJuqT87xe17 7UIAunkOiL5xrlYSvmmbyuKPtcvjkMIlhxaT5GI TpXKwaerciEOFmIIfdM4ltXoQjCGRhtZipUQkgb 5OiKCMdUGAhPkWtnSBwFWHjIqw9RLWzmBWvKXKz DhWcT6nxybjbDxMFXBKcw3lhT0habTEJcKBsY1D aHKbfavDrEOjtHGadJLMuNJO6UN60FWtcWFTlce 19 CPT Code(s) (test code = 4727) k7fudTDrPUFfsQR8MuAzGGBpx5sbi5MjgAUs cGF qOZgvjSUhsbEgfa35sZI8cE28CK6sXPOcQpT9IG WbflC2Zzm8XXSrYFEqzFCsL849c1ovz2myoaHpj ZW4yJvjHGCjZRXfDFvnDLHtCeMyQZveJVKiYOg9 LjNuOZY9YIR1PEa0QHIeri5= CLINICAL HISTORY (test code = 1016) f6zsmBRyEDVmnOJ0GcUdLBPok9ubx6F sdHBncGF sQPyvtPTiaaEnnu07pQS0eM44OJ2rBLOaRiK6II GmdhO8Lvs4JQLaOUKvoAHaA039l4qfh1nqnaJtr WW1pZxnKCOnLUScFLagCOMoTzTjCCHntJHryd2a joQpxWV8I7cdsR5cv12esuQqVGKnTGH6EgFyfVC 9QnJsqUPbUUSbMGunFXK1 SPECIMEN SOURCE (test code = 3377) l1uhmMDfSBBqeWF1ZgEuUDSsp2ykr0Fr dHBncGF iUUvpjYKorwVyuc60nWH3sC13DT1nMUEcEgR3ZW ErqfE8Twl3OSDbVPMclMScG404a2ahv0pcemLps AA9dXckVLTiAKXpZDvjPHAbBeWxNMIosKSudh0w ci5xbXeasPNeBFQzpWMidX== GROSS DESCRIPTION (test code = 3366) w1pofEJtZZQneTHsSbYmFEVvQMXvb1 lcZGVmbGF qMoBsCfKzTkMuAwrwbQFiZKEzCxKrl6mzx342iA Tuj2glXZIBgttycRd7p7foJRSfLfJ5zWCiVTeyS 0qewcUztMDpSZTsWKs0eT06SCKiiJ9qmQHvXCss csAxTwR8SNoxADGyVqH7NCXlwOExLAAsH0hiNVW jTEtsXRQsCCzndYWqLLJ8qFdxu5D4aMSrlYBdyO xkIeDoDqMpIWISa6EoKOp2kLjlY8GjWLMnFgC1d RGqJTFlVTccLUPvIZPimhP7aS74CAjyrcI6mQNt k2Zid31pc052gS2ciRNaYXR6OZWgCWPfiHAmTCQ gZVQ3HUSvgUEpO0c1SlIxdLTrS4F2OqPncBCiL4 V6FvTcrYBzJ5R4KqEewGQjMKYmsSUyUu4vzAUkx QLovk7wvh42YAJ1z2SspTtsFSL1AQJ0QmGrPn9o jJJeFREdBHHmxGWvTQDcAJ1ruYHhTLZksA3nrie dOKIxYoRwuegcMLDicHxijvDoRa3weZhaZQN4EO cpL3jjiF3qMxJ2MKtgK6rfkY2gVIj9XEtltZN4F XLpqE5hYI1nhcqpg1wfAoFhFX6azczst6mcBvGx LH9zjdo8y0ahGwRiTG5llnwqa6cyAeWiLPllZAE jkekjNQNtq3GpkrflDUPpj5RrU2PwwQxcH82bjP jzJ55jFILbbXimtZ1veShxlA7fTdYtBeFoZYsvB XJkXHBsYWluXGYxXGZzMjBcbGFuZzEwMzNcaGlj fKynBOvsUqTbRRMeADloJ5gpJlExCjKfJXCYFcL ONYOpjTLhBSCiekFfv3XyILmqquSbQPFfxUDdDB vtfTwiwInrCYRrzDvfcfKlD9B9uiAkVJ1oAPZmQ KOsO3AwGZXxU80aTQGvxF6qEAZaDX1nIFEasn0u pbotiFIemLRhAL3rOWDdzjIcr1ShNQ0rJT77gHS neDefYRrqAIddh4dgeCZdw47leVG9eTJxiDEhA1 1eUHHcfgWnJ7riSoUbSwMjBM2zTWBfYLdpZCqlm rv6bWIacLUmlGT2OPIygF7xyE01tdRbmeQGOV7g rVfnETayqC6iIQLqAEfpCOFmV2ZozK0yCW4AUyj sRUWbVJQHZ8BrL09szGNfwG== MICROSCOPIC DESCRIPTION (test code = r2supSJhIMRywWO4DsLaHWDqf7uqo8 BsdHBncGF 3371) hTMbnhHNhajEkaa63gSX6lI68UM0iXSEjYhU9OQ OaolV5Pop8LBPhIONifZKtQ437w4irh3flkvDcv WZ3fYskKTCmIKArKTkdVFTyDnPtCNZPDj4TBVZA XHBhcn0= SPECIAL STUDIES (test code = 3376) d8gpjYXtKNAonHR5HjZwAIZwl5xsx9Bk dHBncGF uLQuvoUHivnWnco62dHO3cO01DG6nWPQkGbR9IC DgyxA6Tkj5ONZwEXYzsNRaK451BWMvIDUboFjkb ml4yP68EYXbsK3zsONuDGb2NKFxcsIkvHonvN8w FjVdIlKvExZArSJyeL09GGRgpcO9QSUfz92tq9B ahKujvyIyPJOmPFmdE9x6GYNtASMpVKN5h0Eol7 MtbZ7dqM8yfZhhuL8orZKdoRC8bnsvr7Pgx7TwB 6chxCUraTJmfjHwCKTazjAFLX5QKeQDEY4lJ6EW ISFKXahoDkZaXJriAHALAFyQSYZYLKF9HVALYOU kCVXTWIrfZOPrS59uzQVakDCAaBbcIRXiQEtaiM wkZKZ5JIVRxi9or0XaPTJysd30foTkb5AwnXf5V GZix737zv3zigH6GZHbQYE8WLm0APFgGBCmfS8f CjQ2qNGrYJUoDDM9PVE9TOSel4O0GY2xKERxPFC sLAPpzlZuf1pjo4tcTOBsEOD0spWvsQ4lG2VgTG Rli9UqnZmvYOGfiZtbkkJyEOUbxBPdWPVteK16N GXctVGapLOzNEHxNFE4ROtasR7nYlJCpvDwby7q zIFln7RspRc2LJJuceWpgkYnPOVajyTmN42jpGN inMFoy5fneaAuamGycBYdpRMkUCQiRMV4FIf2JS YfLPhkESPvPOfkFYChEL8mgV2vgUbkgU9toHGec TP7iqsqeHEvxW9nS3OkZYPda1Rdoopnr5BsDHKb fdQfoz8pXMZqkDIXPEvex5NyI6XtMCc4u7RwmBw zLNgmUAo0AwWjMTMsjRVbbCMJSH64VVCiOVQyrL zbwQ3rcZXFTLChatA1o6G3IMnjLDLsFTw5RPcti pOkPFQzcX0mZNOrWV8eUAu6nyYcBRBjx3NxVZ3b ZTOjwVKyJWG7NUKan4AbN5Fkh0TjNWIgGSOwtj6 pivQzTvAHjJMqZQGetk12BFFhVP1aZ5elSFKpKH CkftOinOWow9IjTZJhyWI4vOUoXQ8PGaSBs92eH NCdLRADcvDiHMInmXdscWU4rlD3cX6tRvQIuYJv YfTZLXzghkPbRPJaxv0iexQpNSVmAJZmh3WdqYI dcCFtmoZbQ8Jgi2LzSYIqik09YFyycTObyi57VI 7vS0Gab5ZyfQ7hJQlvXSZwm5DkkJVarQWtSDNuo 7ZzL3rvasfeVJdnpXSilB3dBPFfAAd4LJOtc0Ye ZKNck3TtQxTzcmIpNVXjHNPnEDLqeN85DNB3oTp duVlynjJlSA1qFMCotgRrBFDgOVEstJ1pTIdayk FjEIImqkX5v9Q1SAzqBRHyoiDhNawkRIY9usAuj jA0eLJnW6zykzbrWXceYNUsb3VzeO7bwPLXqAOe o4RslMUykYMYtECyDS7qqiVnVE9dGQD4HWhoRYH UVVNuQIvpPFEyLHK8JSqwRzioYFE9jcQqRZNqc9 BaJXuhH4ayR86ddDzjpUi1hTUpoUstsOVluHPeT OEdviI3f7R4WJRlu3OygsumGDRgnv2= Gross assessment was performed at (test [facility] enter, code = 2777) Department of Pathology, [address] [place] [address], Technical component was performed at [facility] er, (test code = 2778) Department of Pathology, [address] [place] [address] 92594, Professional component was performed at [facility] enter, (test code = 2779) Department of Pathology, [address] [place] [address], [facility] [id number] 10:56:00 Test Item Value Reference Range Interpretation Comments Case Report (test code Surgical Pathology = 104) Report Case: [id number] Authorizing Provider: Vandana Tejada MD Collected: 08/31/2020 06:37 PM Ordering Location: [address] Received: 09/01/2020 08:13 AM Service Pathologist: Thien Radford MD Specimen: Groin, Left, left iliopsoas mass biopsy ADDENDUM (test code = [id number] 3381) Aeb5njf9SudHBfoTZjOKft wCQwklFipf27cOT6iD69IN 4wFXMcSrZ3IZKsrkH9Xra0 THYrBMMbgBGsL836r2lpm0 cziyVwdRM9cCdyDBBbRXIs UDvwIOZcNxJkMZ6xaT1ldS ptqL7mtLBjqHVngAUhiFXt iXEaNPMvoyUndr3eVUPzrz ZasG1wgjBDNWSyCN3rhnF9 pwP2FEQ4zFCgpuUjyHbre7 OeDlQtFPekwmH8fwCxVVEs t0RdmCy4MJEwh1HwC2HqXT 4gVGhleSBhcmUgbmVnYXRp seKcVx3qXHhfrqK4qX0hUY QxKAPmGGSpu03xzxgfZQ1L EWSoeY3dkXbjkFSwZ9boOY FjdGluIChTTUEpLCBNVUM0 RYTrloUmK8MZGSFcSGSak2 ozHjOgURMftxVyuZ6nRYwf TlefA1mnYsisxJZlsdRlkX FibGUsIHJhbmdpbmcgZnJv nFOkVJE6ruU0KECwJJlfHX XreVJlNSCdASPjUX3orODu dGljIGNlbGxzIHByZXNlbn OgUBAon79bzWNndOGgtDe4 p6ohUJUwLHS4tfBqAEFzKX WhFUMeSUMpgGOaWT6tIURy ZWQgbnVjbGVpLiBUaGVyZS KqpoOyrw3bfbHwDIheeNYp gcVtpAZbqCGliYf6q0XzRd PgwKa5kuWrVEDfWPTqzlSg HIrxo8H5VTXfoGlfouIixE NzJY8sRVNcIJRpMjYsQPCk z4Sxww4taRCiOBNveoNMzp KwQUoiFAR5qKNyteT7uHEa VG8xYJWkAEHwRCSaf34siD JdeJ0aQUWwja5moqV4QPQe s1xutiMbLMhlSWLirl4cNU GcmS2zCsDwuSUekZxiKX66 LlxwYXJccGFyIFRoaXMgY2 SzFEQ8aEpgTITbOUXdNtEt ioQbDPZvDC6JRLBkOZWvd7 3mBKKxwbYpw00bjXa9SFTu f22cQWDwRTKwSJWdPBKzBP ZgyZ4wcVT5uGikOGLfjDnc ji4umWUqOZYadiGQkjJqKF SbuGMspS7mboVtoCCoXJGp PLy3FIAoLdMXbP4tPTHkMH 3wS9jnCHkovixsEKH7 DIAGNOSIS (test code = y8hasJMjDOEnn6ulIUQckY 3220) FuZzEwMzNcZnRuYmpcdWMx IHtccnRmMVxlcGljOTIwMl qhmfIjLKQdcQAgP3Nzgtnx DEpvDX8jJX1fnNecrOSwoX SlFMBgGcPqy4cca671qSUm f8laDFADkkvszSh8rSxxT5 3ue1S1KkoiX34blNZyPVbo bGFpblxmczIwIFBBUlQgQS KGBAGJQSkJVP6KW33OGvWO WHJJPTRQOS7QR3z0PZEvro BTUElORExFIENFTEwgTkVP HCuKP43vDMZubwAOJQ4RAO BJTlRFUlBSRVRBVElPTiBQ JG7DZE6QMFmKUODHR9BGZA 2LWMdYHZ5GDduhMAKmHDYE SK4JLI4yAhRRK7NBLMFRLV SANOvKAr8fYJQloq38NUQ3 OqHdw5N0WQL3VLVwUVFwb9 lcZGVmbGFuZzEwMzNcZnRu KkyioLIgNKXwJfRoa1lxa5 33yVBeh9dsXNEnUkZ2rMSj PCXvvFMvP136ZLKnMNqcl7 hga8KtLXRseWSrp3T0NMOZ mzrclBm7hWlyT40sg5D1Ni roB0hrGYKhHHJnN1IbNC5u AHHiYas3RUM8XOU8XKGsLC FdL7GaAL3mTPAnsKCjIYn4 k6njiZnoYQJgDTP0b6ytBX wmimIpED8ayr0gvXt8k3xh czEgRGVmYXVsdCBQYXJhZ3 WyzBuhPu1umJc1aXsrDlxw QCV4Jqn7AV8nzb96mxi7hW xtNSTyycfeVsR9TFelQOFx ppwiPVj2ZFmkKMHxzTT3OV TsaERkQ6CnAETiTS3lvjj2 YGL0EYegJGMuSkG6KYElgE TbKLAyeEimWPzvh005ODM0 QeFuEP4dH1Rte2B8hA9rqQ ZqLRRxzLXvTnYtPERyda0s gTIqHEine6EuUQS5xlK2tC CeuOAfKIZvHpE4QKexEZ7b mp08YBZoDPU2yo9dsQCiyK plmsTtjIMdOLepX0GcLICq k064HHZdU3SzSGJzc4L1fm IfPiFfEFOraVY3tjX4FAOe LZ2grhffg7vpXZucSFlhSV HbriP3yzT2QGYwkQHiF4Tc hO8lVKPnNB5rtxpkq1mtEG O6DKydEBPwMNH4LkEgRKDi k1Vyeda7GoByn7JotRUbIM bjM78lr280VEUosdPsQ2ud bGFpblxwbGFpblxmMFxmcz S6JXXdKToizzymSHCfHCgi D9zzMvJzWTYxvJlxKGnef3 NoXGYxXGZzMjJcdGFiXHRh Txy9UKKuuODdMOFeAaSjZ0 gfngcnQeQYTEPws9fmB4or mUOWkNIiA2WbIQmoguWwBU qbERrfFZJkZHR6BW85IBax LEHavy55 CPT Code(s) (test code s9gjaYBsIIOdcQS9HuZgDP = 3359) Rzc9uug6NquEEdrODgJBgm gUWkwjKwle57hFI8zK65LP 3gCCYkMuQ7ZHKsajZ1Ifc1 QOHyJFWmgLHwL277m4duq2 lbnkFilNA5lOvpGZWtJTVt YWluXGZzMjAgODgzMDUsID j7BvRxOYY1BPV6KTc0EGXq cn0= CLINICAL HISTORY (test r2etaMSnZJBfpAA1AwGvKM code = 3356) Eax3rya6BbiQBdaCWnJEdr qMVjidUasz32cHV7aY19NI 0eKWTuSzK8OOWwnfA4Yrr6 BWLnBAUtgGImZ581j6vox2 mojcRrrLS1xAhxWIJiDMUb YWluXGZzMjAgTGVmdCBn 4ixjFvdEA0A3ondO2kj39j imQxGZXkFKH4ChKcfWV8Oj EgeCAyIGNtIFxwYXJ9 SPECIMEN SOURCE (test c3aciUVeUZXnnAA7GpPdUG code = 3377) Zar1tmc8GnhYHlbEWwSMvc lPPnjtMhar07iWC7mY71NA 4wEJAxTiZ5CNXvkaY0Qjv4 USZlTZFqoQQdC377l3bqf0 vswsWmxMZ8yDuhWBQnTFKt YWluXGZzMjAgTGVmdCBn 4xxa5fyFgmgPYgAOZxfELw fQ== GROSS DESCRIPTION (test t5rzeDXpUBFhpIYaOuTkPC code = 3366) EjWOQfr7jkTSZbuHKrZmTq MzNcZnRuYmpcdWMxXGRlZm Abs7eel500lMLly4kkQUTZ nigfyQt4b5cgZJHbSmT0uS AeFBrgC7hphjZfdSUcLETi DYw8lU09BUJeoE4tyRMxCL zyvqWrAcY7ROnxFTTqQgA7 WXUhnFYrJJAuE2zjYEJkFP osPCKaQMakaKMuEPV3uGxi o1Q0kKNpjPJpmKixItJuCf MoQJJCu3DjUNy1wUsdB5Ns HZPcHwB9tVFrRLBhNElrML AnFKHjryL2wU81GBqehjS3 gYLjm0Oeh09og724rR3mcB BwOQC9GCCsCTVshRNcVDTa QCL2TVGbrNVsL0h1LsEdbF OoI9L0WkRwcAXzI1Y3EpHl dRXqT0R3BbSpyFYuAMXedF NgWe8ovFRpgODrha5agp91 IHP9j1ZvyWieSQF8VPN8Fc OcNt2npHAxAGWpTWCqtCYv UEBtMW1rkMXlXNCksM1tve xjXHBnYnJkcmhlYWRccGdi mpJaZn1tiDpzTBD6ORjuS3 mesQ6mCkD8ADktI0bapJ0f GEe3CZpxiCC8SVNvyY4yMT 8vstanz4jhYnSoWL0erjlj j4doOmIeRZ5yfnh2s4znWi GdKK5fivzmr5euFdHyUCek NLLetdriCWAqc1ZczngbYQ Zrn3ZsT8BpnRfuY04olXty D71pHLZgeOyhzO4ncHrshF 5cZjBcZnMyNFxwYXJkXHBs YWluXGYxXGZzMjBcbGFuZz EwMzNcaGljaFxmMVxkYmNo LDXrHIsfV2asLtGgBsEqGB BBLiBSZWNlaXZlZCBpbiBm j1NvUNrhpyPaLVXgrRFaCF dpdGggdGhlIHBhdGllbnRc E5R8axGyIL6vUVQdOPLaK3 KoSZTwT57bUTLzgY5cGPVe NU6oNXMppe5wtqaddITljY DwNO9eZWBhuaZvw9MjTP2c WM39kTKpeFopWOviJDdhb4 gsrUEdk36icEY4vNJrdFMd F49tELJesyGwN9jcXgDaQx WhUQ0kTWBbDQhpYHbjqnz8 fUUvmHGxwBZ6VIUxtF3zfY 71chEvcxKWFU1iuRilFTvy bU4mNCJcXPjlDTIpB2VyiF 8aDH9BAliuGCKfFNWJE1An H62bqSYqwK== MICROSCOPIC DESCRIPTION k7nlhRGxHWYpzTO9QxPmUX (test code = 3371) Pdp3fin1BsmZTpsBOiNLsv iHZhmvWijv80gHA5wI90FL 3dUIBlZxI3XFXrepZ9Hyl5 XBBvCGPmuDIrF338p5tvg5 ninwDwfNP2iRpgIOIuSTYb URymSAVuQxFjFJQOFk1SAS VEXHBhcn0= SPECIAL STUDIES (test u1logIOqCSJieLU3BnNnUT code = 3376) Vnm2qsc9SktWXsgRYcOLtc tFQminEfnb49vNF4yQ74ZG 8nTQHzFpG3OIAbqvE5Fso8 RVQePZCzjOIoM314THKvHQ DtcOlnxps3iZ33VYUaaB4p pRGmLYf4YGItnoKpkJbhuZ 1nPfPdXxSoDcWMwZDghA65 KKMwnbT4KQYps32ze2GzeM pwlnQkQYTgSNfuI9l7KNUa JNVoLMN0w2Evk1JamO5ujZ 8nwHcxkS4yzDRjiZA8jphh z4Tkr0CzW2clrOCytWMjuq YvAUFdeeGAMP3UBsAGYO5t Q6FWNJQKKaemScLrQEabBO CYDVpTCIXMKZE1ITKXZOSj LIYSHNooQFDoJ85pdHQppP BTbGlkZXMgRXhhbWluZWQ6 SPHRgi3vw6JfQXFnfb52cd Nao8FnfVm1DOVfk152gq6i pgI7QPPoJTQ6WZl4GNHbYP QssC0tLlF2jXBvZCDhLXA1 GLP0KWYko0Q5VR2gDOUfCG YhTMTrmzUae3qci6reJVTb BZJ3mzOnlY8lO6AyWDZzr4 YgdGhlIHBhdGllbnRzIHNh bGRdYJZdzK69QFTimWUqeT WsXYCgGAC2ESktcU2yQcFX deLfzi9bsJYly9MjmEt9YV OhgtQlrzYlXSUsglEiI40t xACauTNwm8fugxKuxrTpeN PpwSRoNHImVTY6QUr6OBNr YYcnDULgFEmgMQSmYY9vjL 5nePrvkA9jxHGhjKP5jxow pKLwbF9kC8GkQDXlc5Uurf gcx8CoMJJvqrSalw3qOMJx iPNAPOyzl4RlJ9OdCSf0t6 OhvXdjSXseFSt9HeOyFVWc pFTvoGJLAH06VZJrRFXqfS thhT9sxHNWPBJrgcC3n9F4 FXrnFLSpMIu2TXhyzzHjLP TfxC5kJYJzAA9tHRi0fpXe ICGsy6FjHS0lBGAdpYJyTP P2VRXii3XeO8Ydx9FpKNFl CEDqvq6kkmRxCpZPlLQfZD Wrcr45KTSkWK3wV0axQLKk WMHkspUttQLfl2PtPORutX E9kOEaFI2IBpSCd35hNQZt CPIKumPoDFYblEmrrCH1zb Z8kH7wLhUZyWKuJzWDDDya mmXfGIZsrq4abiAfHYTsDC Sdi7IafZHmgHAjjiLxZ6Md u9DnNFBapf85KNvxcEKxvx 97BZ2dO9Yxo8GdjA0zOYez YFPrh7CqoSFnoMPqYILuj7 YcH1fxeqowPKwknNZjhR6f GGSwHGd7JZRww4ToVXDib7 QgYmUgcmVnYXJkZWQgYXMg tD92PKQ4uHajqLzloyJbWS 6mWAAwrlSoGIAiUDXdgU8i RZjewsYoMAJbkmB0v2A1MS tzGEGcgoIfBsczBJX2jiGf oaC2gMWwD7gwcfatMKzzTJ Uvu9ZnsR9yfOXGzKRcq4Er lWPooKVDrCXrUF6ngjMzZO 7rPID7ZLtiIKZUTAVaHRko XDDnDDM5WWoaNbtoVOJ5gl GjWHGyx5PgHKyrY5gjO56r iTzugNb5wRVkjZwusHIxtJ AhCIDtpcZ8a7D0QABrc5Vv bmcuXHBhcn0= Gross assessment was [facility] performed at ([facility], = 2777) Department of Pathology, [address] [place] [address], Technical component was [facility] performed at ([facility], = 2778) Department of Pathology, [address] [place] [address], Professional component [facility] was performed at ([facility], code = 2779) Department of Pathology, [address] [place] [address], [facility] [id number] 10:56:00 Test Item Value Reference Range Interpretation Comments Case Report (test code Surgical Pathology = 104) Report Case: [id number] Authorizing Provider: Vandana Tejada MD Collected: 08/31/2020 06:37 PM Ordering Location: [address] Received: 09/01/2020 08:13 AM Service Pathologist: Thien Radford MD Specimen: Groin, Left, left iliopsoas mass biopsy ADDENDUM (test code = [id number] 3381) Nit2yhc1GwbSOyuRMaTGkr xZYzaxRmdl04hOV3lR79PS 8jCJQeGrW8RXGspuX5Qln0 YYIfWFSptXNjY364e6dts7 girgOrkUD2jBnhVJScIPQz XKmxTZTfZeSfRQ7tsN3jqW kzrJ2fvZPlxFDmsLJgjDSz jRMrIWMtquYtoh5jCTAfgq CuvA6mrwIFATNsCR8ubpC5 ioD1CPH3oFKscqVphLera9 RzPxJwEIqlzfO4qdIuQOVs p2HehVv6TZPcu6QoV7UxUO 4gVGhleSBhcmUgbmVnYXRp lrKuVf7yFAvjvpY4wW3qOG HmAMByRNGro46wfddaKL2M STQzgG1ieDvmmXCaT7izMW FjdGluIChTTUEpLCBNVUM0 ZLYhccEiK5VQKYXrTKStc4 jrDmEeYTUhdoWyzW9rTRgl SrqyZ0maLcwtuSNowkTidR FibGUsIHJhbmdpbmcgZnJv dRYtBCM6osA4QXNoHXayFB UkuJFeDPMcQGJeEC3axOZd dGljIGNlbGxzIHByZXNlbn NaRIKdf05mvDFqtEBeeBz8 e1tvJNXnXKK4fkEoLUNgRH ItUXKcMTSxpKAuCE5qKETp ZWQgbnVjbGVpLiBUaGVyZS SfruSqyr8rucLdZMvauJGh tyTmkHYazBPdbFg3o6PuUk PgmFq0spHqUJNiMVMwpkZn VQmav9G4IHKdwZkdvzIbdH CmPO4hKBOwLCKtTvPkQCLj x6Mduj7ucPHwZZJjpoMTif GoUDpiQBA9tMTlojZ2dYTm UU9dGMTzYFSyCHJdi01ygA ZpvH2bMCImeq9mruW8DZEj n8hekrWjOSeoHIXnsv5nIX JczT4bJzFolGVnjDwuWH93 LlxwYXJccGFyIFRoaXMgY2 VwNYP7nOgqQXYgSQOpKlMg toSkTWDjWN0PSFVmTLYrm0 2yAFZmfoZgo58sxTn5SLBp s36rMUQoVQVhHLPyZUAnCY XepT7wfTZ4rBxzMEUrpMov nu2ekIJcBHRnwgNQzqWuAR KahQKikQ0gcqRdyGPhCXIe KOh3GGLyTsUXlF7hWHRwRI 9gR0ptRSeymrjuESP4 DIAGNOSIS (test code = e7gwuIMcXGFuo8xgCBNvjD 3220) FuZzEwMzNcZnRuYmpcdWMx IHtccnRmMVxlcGljOTIwMl dcmiLuIPPbgPOxK6Jzrnnp GNfbBZ1gHD8ldRtwtQSlwF RuDLIoIpPsz3gno704dPGz n3glWIAJrykzeWz8oMxeX8 3gu0G9AsiwY31nlJYzYGfp bGFpblxmczIwIFBBUlQgQS WVCNVFBXsPOB2GX47LYxCH HGOBPNWDSK7ML7o3WXEwiv BTUElORExFIENFTEwgTkVP KErVP83wFKQgzxNBJR7XZS BJTlRFUlBSRVRBVElPTiBQ HJ0NFM9THBiRCMGWK8EHAL 8HBQkUFV2VOjpkLPMlTBTJ EN7IES4uKuCCO3VDRUAVCS YSJMjOHw1kXAKvzg35SCZ8 IjPxc4K3CGR0REWwVZPzm6 lcZGVmbGFuZzEwMzNcZnRu CdmvaBWmWGWbBxRbc0sqj7 58bQSzs8uwIFKvDtV8aPFp CKOxaPDtF296ZXIaLWfuo7 zxr1OsEGWteWBtf1U6MFGM qnunyFx5gEbeP56nd3Y5Nx xiZ2bdGWUrHUAaP4YbNI1y QVNaPdr6EFF3XOJ2YCKxZR ExX5YcJD4nJLLbjWLfGGt8 q4wvwOqfODUbSHA3g9uaCP lpimNnLF2kqb9ytSw4g4xb czEgRGVmYXVsdCBQYXJhZ3 QprYzyPd5piCc8rHukUbts QAH9Zrh0OC0krh90svo4kT vzPLZigflmNwE3ONmxYVQv lfmxNBe4LMkyKNGjeEM5RC YrwCUpZ7TfLQIcVF5mtvn0 RWX9OUyjVCAeXnM7FYFeyW LlPDBiiWezQRmdu804PHV1 PvFlWN7jB0Ltq9L9eR4xgN EqOSQlbEGrMxJjWCFzmy6f tQRzEPudd0LfTCT1ciD6cL FseDQwLCZzUlM5ZMyvOA1y oy80MCSaSKS3vt4zdNDpzM dzlhLtsBHjEVzeY2PbCADo s187IPKxN6LmYZSmx5R5zs RtKeYgNUUkdRJ5iiL9MPLc TN6bidmac0qkAUmiQGnvRF SjfjQ4jyW9HUZfqVYxD4Wf rH1qESCrBZ5mjeeth7sqUJ G6RVflLYJtLUB0IsVqWGEm c3Ktcuz4UbWcm3JhvYJxXS bzE99wx178CHRpsxKzH0zy bGFpblxwbGFpblxmMFxmcz I8NZHaMXafdfdfUJQaEAda D4adWwIqVWDydWcbIUbjr7 NoXGYxXGZzMjJcdGFiXHRh Fvb2ESDyfTGtSYStGeDcG4 lmuhaxZpBLWHOin4bzN4jg rDQKpRVyT2YbBByrzgSpII obNZxzCPTpGMG7TO83SPfv SNDene05 CPT Code(s) (test code v3wvwDRiAGZqyQP2BmIsLN = 3351) Mpk3phu2KqxWMuiBXlQErw uKJcwwQenp13oEP9hD70JU 8zJYUoDeU9TKWvrlS3Gpi2 YPEtZYNexHWhX193k1vlf9 gnnzMfgPC6tBghBMDpPNNh YWluXGZzMjAgODgzMDUsID f5ByEyUCO7SXJ1YZj8BYHa cn0= CLINICAL HISTORY (test a7nxsFExQTTfaPW4XdGrSM code = 3356) Ljp2jpq0CmzHMcePOgJLlc fJScytCrst40hGC8sQ40JY 1iECGrQwX3AHSsmkT9Pyi8 TJBnPXAjeMTcY846g7bua6 itprPgxMB0nZubRQPdZEXq YWluXGZzMjAgTGVmdCBncm 9cxhGclWH0Z6qzdT9bk36k paGbVBRrJSY8JdRucZC8Fp EgeCAyIGNtIFxwYXJ9 SPECIMEN SOURCE (test b9mdcKWdUDYrqNS8HsYjWY code = 3377) Jrm5ygo7QtrXVpuXQsRWwh aDSctiIvso43wIA1jH50VW 2pZELfUnG0MCIskpZ1Rhj9 HDYqTLQqqFIsT900j0pfe5 lrlfKymPD7gPxiEOGtOKYn YWluXGZzMjAgTGVmdCBncm 6ipc6gxOpgfUMqTEQkjLBc fQ== GROSS DESCRIPTION (test v7juwZTvWNHqrGGwNnVrYO code = 3366) EzOBPom0ggEYSzqPSmLeMu MzNcZnRuYmpcdWMxXGRlZm Ouz1yad747tNDgu5aiAVMC xikbgUb5j7hrRCMsHbC8xA DiWRgsR6rdmgKvrGDtJYSr HXn6gV68IQNpdO7lvICmZT pjqsGoOiM8AFiuCSJnEuF9 VIIhwCDuEAUbO6hmNDDsLJ jbPDOzKBtedFMsNMT1iLer s9T6vNPioVQmoVuuDuYaLn StPENNj8KvYEm4dJwaS2Sr JSGnBfO9hDIeVPGnQMawZB JlUFWdidH4mO53SQeytxZ8 kVNlz7Byl89pb757eT5gbM NmEEV6FPMnUTUtkFWmKHNq TCX2QWIyrUUeF0r5NkEqkC UeT3K4RsBcnGAfZ7J2FnAy lFXdL3I6KtAleMMaHVRkzM CxNf9ctSGkwCVfmw8tlq54 ELD0g6GwoQntBKF1ZDZ0Nd JmMe7blBXdVRXgVTAevXPy VCMaYO5tkBRqCFJhzB3vyl xjXHBnYnJkcmhlYWRccGdi lsGjMh8jaTlsPJL4FLmjT1 segZ0sHhR5WWvkQ6kycS6s EWc5QVzjiTG0JJGvoE2pMA 9nqmimh6nyUnLnUO3unydn x3zvJuOkNW8yjig1u5ukCl LqOG5nvbrlv2kgGdKoONnd UKVmdbvsJXIea3LozkiaGY Usl5SdM8JhlHwbF87ziRbi P79pRKIfqVgbnS4mnKjumD 5cZjBcZnMyNFxwYXJkXHBs YWluXGYxXGZzMjBcbGFuZz EwMzNcaGljaFxmMVxkYmNo HLUqPYsgS2akYjFeVtXeGN BBLiBSZWNlaXZlZCBpbiBm f5MpMFegwqQtKPCguHZyOO dpdGggdGhlIHBhdGllbnRc E0L8aaRoYO0wTGEzJSUtE3 NnMWZqN81yJGXviG3uULCb AR5tMGPubz0szkjwvHFseE CfQI7gXFTqdpTrq4MpOJ9i PQ62pYDzeXcgSFkoBZkua6 hpoRBef81cmIO5pWGncJNt B69vAORhzhBiL9jiFyDjJt BsPA1iGMTfQNjrWDtgptq4 mDWsqDIljQA9DQDjjK3eiK 86boGqaaGAJS7svZsjKXnn wX8bOIHvFLieDEAmA5SwhQ 4tRP8AIowmMQHoIZMVF3Bp N62vgHPzeR== MICROSCOPIC DESCRIPTION g2gcuCWaHYJknVA7QzMdIX (test code = 3371) Zvw4azr0IdxZFtuKNuEEhr jEWqxkXual67bAC7iL87SQ 6qKTCtNuJ0NZIjstP1Vrk4 OFJdQYXytOMfW689k2ikb3 luvyNmeJG3eLrhNHZbNHJu QGlsXIMlEnZmWGKMIu4WDY VEXHBhcn0= SPECIAL STUDIES (test n8yksJOmSGPbaJO4XbAkCE code = 3376) Nwf1srd5FgjUZnpQImWKcx kACknhIbiq70bKJ3cE08WJ 1sRDViSxH5EXMemoA6Ynd6 MNZwHNAaiIUgN904TDWgED DezTzmlht5jD20TNGjtJ5e gXCeEWz5QHDbgyLesKpxuQ 3aZnZwMeUkTjJPzUMrnL71 UAUbtwR2QCLzi82iw4KqzG qplgMuZDMqDArgA4s9WTOz XKFuPIV1j8Mwn6QymZ3mvX 4eaAjepL9etPXlzBY2etjy q7Jls1XpP2xuoQWghDKdwv AhRRWprfUUUF4FDoIXVJ9b L2XTPNYMBrbiRiSgEDrtYA QXYDdFQCEXSWR7YWVGTYZf NNWBBMwhMFHpB61hpQEsuR BTbGlkZXMgRXhhbWluZWQ6 XFFUlm5ht9SbAVLvap04nb Gfc3ZbhMd0QZKkq222xz8z cjK2NJOgMPK0XEl3IKArPH RarL1kAqQ8pFGsUZMzQQO7 JBT5AGEaf5B4EF1yGWZnJJ ZhPVVjysErj5eoc6raPRQl ZKS3doYguS6qW1BgWKCey0 YgdGhlIHBhdGllbnRzIHNh vQWbYPWgfJ35KNHftMFdaM HhJWVeRHL4IJrikS5bRsMT siZgyk7usNYve0GpkIb9CG PoncDegkGsPVGzkuBgE82i rWLclHKcq2vzdsVymiHqoR VqpARwOXGgGUE9BJl6BQVw KFacSZTeFZtuLPMyCG4miC 0rlUmjiK9ieOBlvBW5pncn xJRrdB5sI3WlSJJrg2Etvt iem5PxXLRwhqRpes4vPVUm cAVFMExcm8VvL9UsZDm4m0 KjzHbsINseCWn9YbDrGHAy gHItdCDHOX59LJDsPPGwzQ ztsZ7pnHLYCAKijiG9e5R1 CGkqBPYkAOx5OVxiciHdCJ FgjM2cNZOvCI7yZYp1yrCy ZETtw3EvZB9aCDYysMJrGB I6DCYro6GeK0Okt8CsYRBi OCElmu2fgeWdYuUNuAWeOC Zjsq38DOAdAF6wS5bfBCBp NBAjoaXabOWpc7DsOHTybY Q8cMIdMT8MGaMZz82pDNBf GUDSnuFhQIFayGaxeKK6hp T2oT1nXfCSzUJlGxXKCGro ddQvJKVuqv6njpWgMLCcXB Ebp4FsjVEfrXTuazIhQ0Jv e0TcXREims44MKxuhKUbqi 52WZ6iJ3Hsi4QazF3iZPbd IXHzq0MfsLPboJSfBEKhx6 VyD5mienvgCHzzlYXghA2e MCZzYWj3FOQma5IjGQLsm4 QgYmUgcmVnYXJkZWQgYXMg dE26NUL2fYcbsQzmysEsOC 3qJLCihzPyXVPcDTNrfY8v GRzftjDvBFTtxuK1g7B5WD smDRDaztTtUrbfQFJ9gjIp cxW9nIMyM9jcpritIXvkTL Fau7SrtB1mzFQVbSCew1Jg cLJvnRHUsQQtOW3xntEmUI 5cQJA7WQjdHXBQSPGuNUqg JZHnPDK0ZXvwBdyiFSR4mi KsMXXta0TuTDicM8fkQ28a oLralIo2gBMedUfdzWVyjN SlAXEnptA4x0M7TDRiv8Fa bmcuXHBhcn0= Gross assessment was [facility] performed at ([facility], = 2777) Department of Pathology, [address] [place] [address], Technical component was [facility] performed at ([facility], = 5271) Department of Pathology, [address] [place] [address], Professional component [facility] was performed at ([facility], code = 2779) Department of Pathology, [address] [place] [address], [facility] [id number] 10:56:00Surgical Pathology Report Case: [id number] Authorizing Provider: Vandana Tejada MD Collected: 08/31/2020 06:37 PM Ordering Location: [address] Received: 09/01/2020 08:13 AM Service Pathologist: [...] REPORT TO FOLLOW. 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 [...] evaluated Immunohistochemistry technical testing was performed at [facility], Pathology Laboratory where it was developed [...] to perform high complexity clinical la boratory testing.[facility], Department of Pathology, [address] [place] [address], [facility], Department of Pathology, [address] [place] [address], [facility], Department of Pathology, [address] [place] [address], YZ, CHEST, WITH CONTRAST 2020-09-05 14:16:00Unlisted Reason for Exam - Click Yes and Enter Reason Below- >YesUnlisted 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 on09/05/2020 02:16 PMCT chest with IV [id number] 14:16:00Interface, External Ris In - 09/05/2020 2:18 [...] Smith Verified Date/Time: 09/05/2020 14:16:01 Reading Location: [facility] B1 C013Y CT [facility] 2020-09-05 14:16:00Interface, [...] Smith Verified Date/Time: 09/05/2020 14:16:01 Reading Location: [address] [facility] 2020-09-05 14:16:00Interface, [...] MDReport Verified Date/Time: 09/05/2020 14:16:01 Reading Location: [facility] B1 C013Y CT [facility]/Doppler(CW/PW/Color) 2020-09-05 09:47:35 Test Item Value Reference Range Interpretation Comments Ejection Fraction Est EF is 55-60% (test code = 2574) PXN (test code = Interface, External Ris In PXN) - 09/05/2020 9:47 AM CDTTransthoracic Echocardiography Report (TTE) Demographics Patient Name DANIEL DEL VALLE Date of Study 09/05/2020 BETHANYYL Gender Female Visit Number [id number] Race Unknown Room Number 2146 Number Date of 1960 Referring Physician Vandana Tejada MD Age 60 year(s) Speech Language Pathology Assistant MARTA Be Interpreting Eduardo Santiago Physician MD [...] Velocity: 2.81 m/s TR Gradient: 31.62 mmHg [facility] Echo W/Doppler(CW/PW/Color)2020-09-05 09:47:35 Test Item Value Reference Range Interpretation Comments Ejection Fraction Est EF is 55-60% (test code = 2574) PXN (test code = Interface, External Ris In PXN) - 09/05/2020 9:47 AM CDTTransthoracic Echocardiography Report (TTE) Demographics Patient Name DANIEL DEL VALLE Date of Study 09/05/2020 NEELAM Gender Female Visit Number [id number] Race Unknown Room Number 2146 Number Date of 1960 Referring Physician Vandana Tejada MD Age 60 year(s) Speech Language Pathology Assistant MARTA Be Interpreting Eduardo Roberts MD Fellow [...] 2.03 mmHg Deceleration Time: 212.3 msec MV Mcihael. Peak: Tissue Doppler E' Septal Velocity: 0.11 [...] Velocity: 2.81 m/s TR Gradient: 31.62 mmHg [facility] Echo W/Doppler(CW/PW/Color)2020-09-05 09:47:35 Test Item Value Reference Range Interpretation Comments Ejection Fraction Est EF is 55-60% (test code = 2574) PXN (test code = Interface, External Ris In PXN) - 09/05/2020 9:47 AM CDTTransthoracic Echocardiography Report (TTE) Demographics Patient Name DANIEL DEL VALLE Date of Study 09/05/2020 NEELAM Gender Female Visit Number [id number] Race Unknown Room Number 2146 Number Date of 1960 Referring Physician Vandana Tejada MD Age 60 year(s) Speech Language Pathology Assistant MARTA Be Interpreting Eduardo Roberts MD Fellow [...] Velocity: 2.81 m/s TR Gradient: 31.62 mmHg [facility] [id number] 07:34:00 Test Item Value Reference Range Interpretation Comments Protein, Total (test 7.5 See_Comment [Autom ated code = 2885-2) message] The system which generated this result transmit yumiko reference range : 6.0 - 8.3 gm/dL . The reference range was not u sed to interpret th is result as normal/abnormal . Albumin (test code = 3.6 g/dL 3.5-5 79182-1) Alkaline Phosphatase 106 U/L 40-150 (test code = 6768-6) Total Bilirubin (test 0.2 mg/dL 0.2-1.2 code = 1975-2) Sodium (test code = 139 meq/L 158-581 4114-2) Potassium (test code 4.7 meq/L 3.5-5.1 = 2823-3) Chloride (test code = 104 meq/L 98-107 2074-0) CO2 (test code = 25 meq/L 22-29 2027-9) BUN (test code = 10 mg/dL 7-21 3094-0) Creatinine (test code 0.70 mg/dL 0.57-1.25 = 2160-0) Glucose (test code = 159 mg/dL 70-105 H 2345-7) Calcium (test code = 8.8 mg/dL 8.4-10.2 73053-5) AST (test code = 9 U/L -34 1920-8) ALT (test code = 13 U/L 1742-6) EGFR (test code = 103 mL/min/1.[place] [address]-1) NOT ACCURATE CREATININE CLEARANCE IN PREDICTING GLOMERULAR FILTRATION RATE . ESTIMATED GFR I S NOT APPLICABLE FOR DIALYSIS PATIEN JESSICA (test code = JESSICA) Radiological Metallurgist ID - BALA Hernandez Lab Interpretation Abnormal (test code = 39176-2) [facility] [id number] 07:34:00 Test Item Value Reference Range Interpretation Comments Protein, Total (test 7.5 See_Comment [Autom ated code = 2885-2) message] The system which generated this result transmit yumiko reference range : 6.0 - 8.3 gm/dL . The reference range was not u sed to interpret th is result as normal/abnormal . Albumin (test code = 3.6 g/dL 3.5-5 49894-6) Alkaline Phosphatase 106 U/L 40-150 (test code = 6768-6) Total Bilirubin (test 0.2 mg/dL 0.2-1.2 code = 1974-2) Sodium (test code = 139 meq/L 017-697 1564-2) Potassium (test code 4.7 meq/L 3.5-5.1 = 2823-3) Chloride (test code = 104 meq/L 98-107 2074-0) CO2 (test code = 25 meq/L 22-29 2027-9) BUN (test code = 10 mg/dL 7- 3094-0) Creatinine (test code 0.70 mg/dL 0.57-1.25 = 2160-0) Glucose (test code = 159 mg/dL 70-105 H 2345-7) Calcium (test code = 8.8 mg/dL 8.4-10.2 22838-6) AST (test code = 9 U/L -34 1919-8) ALT (test code = 13 U/L 1742-6) EGFR (test code = 103 mL/min/1.[place] [address]-8) NOT ACCURATE CREATININE CLEARANCE IN PREDICTING GLOMERULAR FILTRATION RATE . ESTIMATED GFR I S NOT APPLICABLE FOR DIALYSIS PATIEN TS. JESSICA (test code = JESSICA) Radiological Metallurgist ID - BALA M Lab Interpretation Abnormal (test code = 80716-6) [facility] [id number] 07:34:00 Test Item Value Reference Range Interpretation Comments Protein, Total (test 7.5 See_Comment [Autom ated code = 2885-2) message] The system which generated this result transmit yumiko reference range : 6.0 - 8.3 gm/dL . The reference range was not u sed to interpret th is result as normal/abnormal . Albumin (test code = 3.6 g/dL 3.5-5 11054-6) Alkaline Phosphatase 106 U/L 40-150 (test code = 6768-6) Total Bilirubin (test 0.2 mg/dL 0.2-1.2 code = 1974-2) Sodium (test code = 139 meq/L 521-911 6417-2) Potassium (test code 4.7 meq/L 3.5-5.1 = 2823-3) Chloride (test code = 104 meq/L 98-107 2075-0) CO2 (test code = 25 meq/L 22-29 2028-9) BUN (test code = 10 mg/dL 7-21 3094-0) Creatinine (test code 0.70 mg/dL 0.57-1.25 = 2160-0) Glucose (test code = 159 mg/dL 70-105 H 2345-7) Calcium (test code = 8.8 mg/dL 8.4-10.2 42676-8) AST (test code = 9 U/L 5-34 1920-8) ALT (test code = 13 U/L 6-55 1742-6) EGFR (test code = 103 mL/min/1.73 [place] [address]-0) NOT ACCURATE CREATININE CLEARANCE IN PREDICTING GLOMERULAR FILTRATION RATE . ESTIMATED GFR I S NOT APPLICABLE FOR DIALYSIS PATIEN TS. JESSICA (test code = JESSICA) Radiological Metallurgist ID - BALA M Lab Interpretation Abnormal (test code = 57862-9) [facility]COM[facility]ENSIVE METABOLIC [id number] 07:34:00 Test Item Value Reference Range Interpretation [...] S NOT APPLICABLE FOR DIALYSIS PATIEN TS. Radiological Metallurgist ID - BALA MSARS-CoV2/RT-PCR (Asymptomatic ONLY)2020-09-04 12:52:00 Test Item Value Reference Range Interpretation Comments SARS-COV2/RT-PCR Negative Not Detected, (test code = Negative, See 05755-1) external report for linked test SARS-COV-2 [facility] PERFORMING LAB (test code = 82834-8) JESSICA (test code = Negative result for [...] of the Act. Fact Sheet for Healthcare Providers:https://www.[employer]/sites/default/f nito/product/documents/F act_Sheet_HC_Providers_L dop_WQIN-HpG-3.pdf Fact Sheet for Healthcare Patients:https://www.[employer]/sites/default/fi les/product/documents/Fa ct_Sheet_Patients_Lyra_S ARS-CoV-2.pdf Performing Laboratory:[facility] [place] [address] [facility]As[facility]omatic ONLY[facility]2020-09-04 12:52:00 Test Item Value Reference Range Interpretation Comments SARS-COV2/RT-PCR Negative Not Detected, (test code = Negative, See 27321-7) external report for linked test SARS-COV-2 [facility] PERFORMING [facility] (test code = 80078-5) JESSICA (test code = Negative result for [...] of the Act. Fact Sheet for Healthcare Providers:https://www.[employer] idel.com/sites/default/f nito/product/documents/F act_Sheet_HC_Providers_L icg_QYQB-IaC-0.pdf Fact Sheet for Healthcare Patients:https://www.ashly del.com/sites/default/fi les/product/documents/Fa ct_Sheet_Patients_Lyra_S ARS-CoV-2.pdf Performing Laboratory:[facility] [place] [address] [facility] (Asymptomatic ONLY)2020-09-04 12:52:00 Test Item Value Reference Range Interpretation Comments SARS-COV2/RT-PCR Negative Not Detected, (test code = Negative, See 94827-0) external report for linked test SARS-COV-2 [facility] PERFORMING LAB (test code = 63646-0) JESSICA (test code = Negative result for [...] of the Act. Fact Sheet for Healthcare Providers:https://www.[employer] ideBlyk.[employer]/sites/default/f nito/product/documents/F act_Sheet_HC_Providers_L hqs_GZOA-AiA-0.pdf Fact Sheet for Healthcare Patients:https://www.[employer]/sites/default/fi les/product/documents/Fa ct_Sheet_Patients_Lyra_S ARS-CoV-2.pdf Performing Laboratory:[address] [place] [address] [facility] ([facility])2020-09-04 12:52:00 Test Item Value Reference Range Interpretation Comments SARS-COV2/RT-PCR (test Negative Not Detected, Negative, code = 0780583) See external report for linked test SARS-COV-[address] [facility] (test code = 9163046) Negative result for this test determines that [...] 564(g) of the Act.Fact Sheet for Healthcare Providers:https://www.Splash.[employer]/sites/default/files/product/documents/Fact_Shee c_TT_Amfvirbpa_Bsxc_PMSQ-EwR-5.pdfFact Sheet for Healthcare Patients:https://www.[employer].com/sites/default/files/product/ documents/Tdfi_Uliko_Yticdbgf_Euvm_ATCV-RsH-8.pdfPerforming Laboratory:[facility], [place] [address]AVE with platelet count + automated [id number] 06:38:00 Test Item Value Reference Range Interpretation Comments WBC (test code = 6690-2) 11.4 See_Comment H [A utomated message] The system [employer] generated this result transmitted ref erence range: 3.5 - 10 .5 K/L. The refe rence range was not u sed to interpret this result as normal/abnor mal. RBC (test code = 789-8) 4.35 See_Comment [Au tomated message] The system [employer] generated this result transmitted ref erence range: 3.93 - 5 .22 M/L. The refe rence range was not u sed to interpret this result as normal/abnor mal. MCHC (test code = 786-4) 28.0 See_Comment L [A utomated message] The system [employer] generated this result transmitted ref erence range: [...] See_Comment [Aut omated message] 777-3) The system [employer] generated this result transmitted ref erence range: 150 - 45 0 K/CU MM. The referen ce range was not u sed to interpret this result as normal/abnor mal. MPV (test code = 9.0 fL 9.4-12.3 L 54644-8) nRBC (test code = 413) 0 See_Comment [Aut omated message] The system [employer] generated this result transmitted ref erence range: [...] H [Aut omated message] 670) The system [employer] generated this result transmitted ref erence range: 1.56 - 6 .13 K/L. The refe rence range was not u sed to interpret this result as normal/abnor mal. # Lymphs (test code = 2.06 See_Comment [Auto mated message] 414) The system [employer] generated this result transmitted ref erence range: 1.18 - 3 .74 K/L. The refe rence range was not u sed to interpret this result as normal/abnor mal. # Monos (test code = 0.95 See_Comment H [Autom ated message] 415) The system [employer] generated this result transmitted ref erence range: 0.24 - 0 .36 K/L. The refe rence range was not u sed to interpret this result as normal/abnor mal. # Eos (test code = 416) 0.46 See_Comment H [Au tomated message] The system [employer] generated this result transmitted ref erence range: 0.04 - 0 .36 K/L. The refe rence range was not u sed to interpret this result as normal/abnor mal. # Baso (test code = 417) 0.03 See_Comment [A utomated message] The system [employer] generated this result transmitted ref erence range: 0.01 - 0 .08 K/L. The refe rence range was not u sed to interpret this result as normal/abnor mal. Immature 1 % 0-1 Granulocytes-Relative (test code = 2801) Lab Interpretation (test Abnormal code = 80190-0) [facility] with platelet count + automated [id number] 06:38:00 Test Item Value Reference Range Interpretation Comments WBC (test code = 6690-2) 11.4 See_Comment H [A utomated message] The system [employer] generated this result transmitted ref erence range: 3.5 - 10 .5 K/L. The refe rence range was not u sed to interpret this result as normal/abnor mal. RBC (test code = 789-8) 4.35 See_Comment [Au tomated message] The system [employer] generated this result transmitted ref erence range: 3.93 - 5 .22 M/L. The refe rence range was not u sed to interpret this result as normal/abnor mal. MCHC (test code = 786-4) 28.0 See_Comment L [A utomated message] The system [employer] generated this result transmitted ref erence range: [...] See_Comment [Aut omated message] 777-3) The system [employer] generated this result transmitted ref erence range: 150 - 45 0 K/CU MM. The referen ce range was not u sed to interpret this result as normal/abnor mal. MPV (test code = 9.0 fL 9.4-12.3 L 21468-0) nRBC (test code = 413) 0 See_Comment [Aut omated message] The system [employer] generated this result transmitted ref erence range: [...] H [Aut omated message] 670) The system [employer] generated this result transmitted ref erence range: 1.56 - 6 .13 K/L. The refe rence range was not u sed to interpret this result as normal/abnor mal. # Lymphs (test code = 2.06 See_Comment [Auto mated message] 414) The system [employer] generated this result transmitted ref erence range: 1.18 - 3 .74 K/L. The refe rence range was not u sed to interpret this result as normal/abnor mal. # Monos (test code = 0.95 See_Comment H [Autom ated message] 415) The system [employer] generated this result transmitted ref erence range: 0.24 - 0 .36 K/L. The refe rence range was not u sed to interpret this result as normal/abnor mal. # Eos (test code = 416) 0.46 See_Comment H [Au tomated message] The system [employer] generated this result transmitted ref erence range: 0.04 - 0 .36 K/L. The refe rence range was not u sed to interpret this result as normal/abnor mal. # Baso (test code = 417) 0.03 See_Comment [A utomated message] The system [employer] generated this result transmitted ref erence range: 0.01 - 0 .08 K/L. The refe rence range was not u sed to interpret this result as normal/abnor mal. Immature 1 % 0-1 Granulocytes-Relative (test code = 2801) Lab Interpretation (test Abnormal code = 56315-1) [facility] with platelet count + automated [id number] 06:38:00 Test Item Value Reference Range Interpretation Comments WBC (test code = 6690-2) 11.4 See_Comment H [A utomated message] The system [employer] generated this result transmitted ref erence range: 3.5 - 10 .5 K/L. The refe rence range was not u sed to interpret this result as normal/abnor mal. RBC (test code = 789-8) 4.35 See_Comment [Au tomated message] The system [employer] generated this result transmitted ref erence range: 3.93 - 5 .22 M/L. The refe rence range was not u sed to interpret this result as normal/abnor mal. MCHC (test code = 786-4) 28.0 See_Comment L [A utomated message] The system [employer] generated this result transmitted ref erence range: [...] See_Comment [Aut omated message] 777-3) The system [employer] generated this result transmitted ref erence range: 150 - 45 0 K/CU MM. The referen ce range was not u sed to interpret this result as normal/abnor mal. MPV (test code = 9.0 fL 9.4-12.3 L 09944-4) nRBC (test code = 413) 0 See_Comment [Aut omated message] The system [employer] generated this result transmitted ref erence range: [...] H [Aut omated message] 670) The system [employer] generated this result transmitted ref erence range: 1.56 - 6 .13 K/L. The refe rence range was not u sed to interpret this result as normal/abnor mal. # Lymphs (test code = 2.06 See_Comment [Auto mated message] 414) The system [employer] generated this result transmitted ref erence range: 1.18 - 3 .74 K/L. The refe rence range was not u sed to interpret this result as normal/abnor mal. # Monos (test code = 0.95 See_Comment H [Autom ated message] 415) The system [employer] generated this result transmitted ref erence range: 0.24 - 0 .36 K/L. The refe rence range was not u sed to interpret this result as normal/abnor mal. # Eos (test code = 416) 0.46 See_Comment H [Au tomated message] The system [employer] generated this result transmitted ref erence range: 0.04 - 0 .36 K/L. The refe rence range was not u sed to interpret this result as normal/abnor mal. # Baso (test code = 417) 0.03 See_Comment [A utomated message] The system [employer] generated this result transmitted ref erence range: 0.01 - 0 .08 K/L. The refe rence range was not u sed to interpret this result as normal/abnor mal. Immature 1 % 0-1 Granulocytes-Relative (test code = 2801) Lab Interpretation (test Abnormal code = 72034-7) [facility] W/PLT COUNT & AUTO [id number] 06:38:00 Test Item Value Reference Range Interpretation [...] PERCENT (BEAKER) (test code = 2801) Prothrombin time/[id number] 05:07:00 Test Item Value Reference Interpretation Comments Range Protime (test code = 19.2 See_Comment H [Autom ated 5902-2) message] The system which generated this result transmitted reference range : 11.9 - 14.2 seconds. The reference range was not used to interpret this result as normal/abnormal . INR (test code = 1.64 See_Comment [Automated 1841-6) message] The system which generated this result [...] valves. Lab Interpretation Abnormal (test code = 16410-2) [facility]Prothrombin [facility]/[id number] 05:07:00 Test Item Value Reference Interpretation Comments [...] valves. Lab Interpretation Abnormal (test code = 94606-3) [facility]Prothrombin time/[id number] 05:07:00 Test Item Value Reference Interpretation Comments [...] valves. Lab Interpretation Abnormal (test code = 57407-2) [facility] ValleyPROTHROMBIN TIME/[id number] 05:07:00 Test Item Value Reference Range Interpretation Comments PROTIME (BEAKER) 19.2 seconds 11.9-14.2 H (test code = 759) INR (BEAKER) (test 1.64 See_Comment [Automat ed message] code = 370) The system [employer] generated this result transmitted ref erence range: [...] See_Comment H [A utomated message] The system [employer] generated this result transmitted ref erence range: 3.5 - 10 .5 K/L. The refe rence range was not u sed to interpret this result as normal/abnor mal. RBC (test code = 789-8) 4.36 See_Comment [Au tomated message] The system [employer] generated this result transmitted ref erence range: 3.93 - 5 .22 M/L. The refe rence range was not u sed to interpret this result as normal/abnor mal. MCHC (test code = 786-4) 28.6 See_Comment L [A utomated message] The system [employer] generated this result transmitted ref erence range: [...] code = 361 See_Comment [Aut omated message] 317-3) The system [employer] generated this result transmitted ref erence range: 150 - 45 0 K/CU MM. The referen ce range was not u sed to interpret this result as normal/abnor mal. MPV (test code = 8.9 fL 9.4-12.3 L 57111-3) nRBC (test code = 413) 0 See_Comment [Aut omated message] The system [employer] generated this result transmitted ref erence range: 0 - 0 /1 00 WBC. The refere nce range was not u sed to interpret this result as normal/abnor mal. Lab Interpretation (test Abnormal code = 66264-4) [facility] (Hemogram only)2020-09-02 04:59:00 Test Item Value Reference Range Interpretation Comments WBC (test code = 6690-2) 10.9 See_Comment H [A utomated message] The system [employer] generated this result transmitted ref erence range: 3.5 - 10 .5 K/L. The refe rence range was not u sed to interpret this result as normal/abnor mal. RBC (test code = 789-8) 4.36 See_Comment [Au tomated message] The system [employer] generated this result transmitted ref erence range: 3.93 - 5 .22 M/L. The refe rence range was not u sed to interpret this result as normal/abnor mal. MCHC (test code = 786-4) 28.6 See_Comment L [A utomated message] The system [employer] generated this result transmitted ref erence range: [...] code = 361 See_Comment [Aut omated message] 317-3) The system [employer] generated this result transmitted ref erence range: 150 - 45 0 K/CU MM. The referen ce range was not u sed to interpret this result as normal/abnor mal. MPV (test code = 8.9 fL 9.4-12.3 L 31630-1) nRBC (test code = 413) 0 See_Comment [Aut omated message] The system [employer] generated this result transmitted ref erence range: 0 - 0 /1 00 WBC. The refere nce range was not u sed to interpret this result as normal/abnor mal. Lab Interpretation (test Abnormal code = 48556-1) [facility] (Hemogram only)2020-09-02 04:59:00 Test Item Value Reference Range Interpretation Comments WBC (test code = 6690-2) 10.9 See_Comment H [A utomated message] The system [employer] generated this result transmitted ref erence range: 3.5 - 10 .5 K/L. The refe rence range was not u sed to interpret this result as normal/abnor mal. RBC (test code = 789-8) 4.36 See_Comment [Au tomated message] The system [employer] generated this result transmitted ref erence range: 3.93 - 5 .22 M/L. The refe rence range was not u sed to interpret this result as normal/abnor mal. MCHC (test code = 786-4) 28.6 See_Comment L [A utomated message] The system [employer] generated this result transmitted ref erence range: [...] code = 361 See_Comment [Aut omated message] 207-3) The system [employer] generated this result transmitted ref erence range: 150 - 45 0 K/CU MM. The referen ce range was not u sed to interpret this result as normal/abnor mal. MPV (test code = 8.9 fL 9.4-12.3 L 25201-4) nRBC (test code = 413) 0 See_Comment [Aut omated message] The system [employer] generated this result transmitted ref erence range: 0 - 0 /1 00 WBC. The refere nce range was not u sed to interpret this result as normal/abnor mal. Lab Interpretation (test Abnormal code = 07713-1) [facility] (HEMOGRAM ONLY)2020-09-02 04:59:00 Test Item Value [...] (BEAKER) (test code = 413) U/S, CORE [id number] 08:58:00Reason for exam:->BIOPSY LEFT ILIOPSOAS MASS US [facility] 1960 Sex: FFINAL REPORT Procedure: Ultrasound-Guided left iliopsoas/inguinal mass core biopsy Pre/post-procedure diagnosis: Left iliopsoas/inguinal mass Assistant Child Care Teacher: Abdirahman Chopra MD Assistants: none Sedation: Moderate [...] MDReport Verified Date/Time: 09/01/2020 08:58:59 Reading Location: [facility] Diagnostic Imaging Reading Room [place] [address] 1.310.12 US Core [id number] 08:58:00Interface, External Ris In - 09/01/2020 9:01 AM CDTFINAL REPORT Procedure: Ultrasound-Guided left iliopsoas/inguinal mass core biopsy Pre/post-procedure diagnosis: Left iliopsoas /inguinal mass Assistant Child Care Teacher: Abdirahman Chopra MD Assistants: none Sedation: Moderate [...] MDReport Verified Date/Time: 09/01/2020 08:58:59 Reading Location: [facility] Diagnostic Imaging Reading Room - [facility] 1.310.12 [facility] 2020-09-01 08:58:00Interface, External Ris In - 09/01/2020 9:01 AM CDTFINAL REPORT Procedure: Ultrasound-Guided left iliopsoas/inguinal mass core biopsy Pre/post-procedure diagnosis: Left iliopsoas /inguinal mass Assistant Child Care Teacher: Abdirahman Chopra MD Assistants: none Sedation: Moderate [...] MDReport Verified Date/Time: 09/01/2020 08:58:59 Reading Location: [facility] Diagnostic Imaging Reading Room [place] [address] 1.310.12 [facility] 2020-09-01 08:58:00Interface, External Ris In - 09/01/2020 9:01 AM CDTFINAL REPORT Procedure: Ultrasound-Guided left iliopsoas/inguinal mass core biopsy Pre/post-procedure diagnosis: Left iliopsoas /inguinal mass Assistant Child Care Teacher: Abdirahman Chopra MD Assistants: none Sedation: Moderate [...] MDReport Verified Date/Time: 09/01/2020 08:58:59 Reading Location: [facility] Diagnostic Imaging Reading Room - [facility] 1.310.12 [facility] (HEMOGRAM ONLY)2020-09-01 05:07:00 Test Item [...] 0-0 (BEAKER) (test code = 413) PROTHROMBIN TIME/[id number] 04:44:00 Test Item Value Reference Range Interpretation Comments PROTIME (BEAKER) 19.1 seconds 11.9-14.2 H (test code = 759) INR (BEAKER) (test 1.63 See_Comment [Automat ed message] code = 370) The system [employer] generated this result transmitted ref erence range: <=5.90. The reference range was not used to int erpret this result as normal/abnormal . RECOMMENDED COUMADIN/WARFARIN INR THERAPY RANGESSTANDARD DOSE: 2.0 - 3.0 Includes: PROPHYLAXIS forvenous thrombosis, systemic embolization; TREATMENT for venous thrombosis and/or pulmonary embolus.HIGH RISK: Target INR is 2.5-3.5 for patients with mechanical heart valves.Vitamin B12 and [id number] 06:16:00 Test Item Value Reference Range Interpretation Comments Vitamin B12 (test 327 pg/mL 213-816 code = 2132-9) Folate (test code = 3.70 ng/mL See_Comment L [Automa yumiko 2284-8) message] The system which generated this result transmit yumiko reference range : >=7.00. The reference range was not used to interpret this result as normal/abnormal . JESSICA (test code = JESSICA) Radiological Metallurgist ID - BALA Hernandez Lab Interpretation Abnormal (test code = 74972-5) [facility] [id number] 06:16:00 Test Item Value Reference Range Interpretation Comments Vitamin B12 (test 327 pg/mL 213-816 code = 2132-9) Folate (test code = 3.70 ng/mL See_Comment L [Automa yumiko 2284-8) message] The system which generated this result transmit yumiko reference range : >=7.00. The reference range was not used to interpret this result as normal/abnormal . JESSICA (test code = JESSICA) Radiological Metallurgist ID - BALA Hernandez Lab Interpretation Abnormal (test code = 25685-5) [facility] B12 and [id number] 06:16:00 Test Item Value Reference Range Interpretation Comments Vitamin B12 (test 327 pg/mL 213-816 code = 2132-9) Folate (test code = 3.70 ng/mL See_Comment L [Automa yumiko 2284-8) message] The system which generated this result transmit yumiko reference range : >=7.00. The reference range was not used to interpret this result as normal/abnormal . JESSICA (test code = JESSICA) Radiological Metallurgist ID - BALA Hernandez Lab Interpretation Abnormal (test code = 11929-4) [facility]ITAMIN B12 AND [id number] 06:16:00 Test Item Value Reference Range Interpretation Comments VITAMIN B12 (BEAKER) 327 pg/mL 213-816 (test code = 774) FOLATE (BEAKER) 3.70 ng/mL See_Comment L [Automated message] (test code = 362) The system which generated this result transmitted ref erence range: >=7.00. The reference range was not used to interpr et this result as normal/abnormal . Radiological Metallurgist ID - BALA MPROTHROMBIN TIME/[id number] 05:36:00 Test Item Value Reference Range Interpretation [...] 0-0 (BEAKER) (test code = 413) CT, [id number] 11:32:00Unlisted Reason for Exam - Click Yes and Enter Reason Below->NoWill this procedure require oral contrast?->No [facility] : 1960 Sex: [...] size and patent. Right lower extremity: The CONCRETE FLOAT MAKER, DFA, SFA, and popliteal arteries are patent. Trifurcation vessels are patent. Left lower extremity: The CONCRETE FLOAT MAKER, DFA, SFA, and popliteal arteries are patent. [...] MDReport Verified Date/Time: 08/30/2020 11:32:07 Reading Location: [place] [address] Angio Body Reading Room CT, CTA AAA, W/ BELLA.EXT.RUNOFF 2020-08-30 11:32:00LLE DVT, assess prior pelvic mass, please assess venous phaseAnesthesia:->None [facility] 1960 [...] size and patent. Right lower extremity: The CONCRETE FLOAT MAKER, DFA, SFA, and popliteal arteries are patent. Trifurcation vessels are patent. Left lower extremity: The CONCRETE FLOAT MAKER, DFA, SFA, and popliteal arteries are patent. [...] MDReport Verified Date/Time: 08/30/2020 11:32:07 Reading Location: [place] [address] Angio Body Reading Room CT abdomen/pelvis with [...] size and patent. Right lower extremity: The CONCRETE FLOAT MAKER, DFA, SFA, and popliteal arteries are patent. Trifurcation vessels are patent. Left lower extremity: The CONCRETE FLOAT MAKER, DFA, SFA, and popliteal arteries are patent. [...] MDReport Verified Date/Time: 08/30/2020 11:32:07 Reading Location: [facility] [address] Angio Body Reading Room [facility] and [id number] 11:32:00Interface, External Ris In - 08/30/2020 11:34 [...] size and patent. Right lower extremity: The CONCRETE FLOAT MAKER, DFA, SFA, and popliteal arteries are patent. Trifurcation vessels are patent. Left lower extremity: The CONCRETE FLOAT MAKER, DFA, SFA, and popliteal arteries are patent. [...] MDReport Verified Date/Time: 08/30/2020 11:32:07 Reading Location: [place] [id number] Angio Body Reading Room [facility]pelvis with IV [id number] 11:32:00Interface, External Ris In - 08/30/2020 11:34 [...] size and patent. Right lower extremity: The CONCRETE FLOAT MAKER, DFA, SFA, and popliteal arteries are patent. Trifurcation vessels are patent. Left lower extremity: The CONCRETE FLOAT MAKER, DFA, SFA, and popliteal arteries are patent. [...] MDReport Verified Date/Time: 08/30/2020 11:32:07 Reading Location: [place] [id number] Angio Body Reading [facility] and [id number] 11:32:00Interface, External Ris In - 08/30/2020 11:34 [...] size and patent. Right lower extremity: The CONCRETE [employer]AT [employer]KER, DFA, SFA, and popliteal arteries are patent. Trifurcation vessels are patent. Left lower extremity: The [employer]AT [employer]ER, DFA, SFA, and popliteal arteries are patent. [...] MDReport Verified Date/Time: 08/30/2020 11:32:07 Reading Location: [place] [address] Angio Body Reading Room [facility]pelvis with IV tpmuugre7432-17-54 11:32:00Interface, External Ris In - 08/30/2020 11:34 [...] size and patent. Right lower extremity: The [employer]CR[employer]AT [employer]ER, DFA, SFA, and popliteal arteries are patent. Trifurcation vessels are patent. Left lower extremity: The [employer]CR[employer]E [employer]AT [employer]KER, DFA, SFA, and popliteal arteries are patent. [...] MDReport Verified Date/Time: 08/30/2020 11:32:07 Reading Location: [facility] B1 P048 Angio Body Reading Room [facility] and Ixkabl7736-48-19 11:32:00Interface, External Ris In - 08/30/2020 11:34 [...] size and patent. Right lower extremity: The [employer]CR[employer]E [employer]AT [employer]ER, DFA, SFA, and popliteal arteries are patent. Trifurcation vessels are patent. Left lower extremity: The CONCR[employer]E F[employer]AT [employer]ER, DFA, SFA, and popliteal arteries are patent. [...] Jayeport Verified Date/Time: 08/30/2020 11:32:07 Reading Location: [facility] P048 Angio Body Reading Room [facility] HospitalArterial doppler leg, [id number] 09:31:54[facility] MKCK[facility]ON CPACS Left Impression1. The [...] + + + + + + !Mid BLACK BELT ! !59.4 ! ! ! + + +-- + + + !Dist BLACK BELT ! !61.6 ! ! ! + + [...] Study 08/29/2020 NEELAM Age 60 Visit Number [id number] Gender Female Accession Number [id number] Date of 1960 Referring Tricia Hernandez Room Number 7571 Physician Richard Speech Language Pathology Assistant Stacy Benitez MD RVT Physician ProcedureType of [...] + + + + + + !Mid BLACK BELT ! !59.4 ! ! ! + + + + + + !Dist BLACK BELT ! !61.6 ! ! ! + + + ---------+ + + !Prox JANETTE ! !64.3 ! ! ! + + + +---- + + !Mid JANETTE ! !80.3 ! ! ! + + + + + + !Dist JANETTE ! !67.1 ! ! ! + + + + + +[facility]Ar[facility] leg, [id number] 09:31:54Ejection [facility] ECHO HEARTLAB MKCKESSON [facility] Left Impression1. The common femoral, profunda fe [...] + + + + + + !Mid BLACK BELT ! !59.4 ! ! ! + + +-- + + + !Dist BLACK BELT ! !61.6 ! ! ! + + [...] Study 08/29/2020 NEELAM Age 60 Visit Number [id number] Gender Female Accession Number [id number] Date of 1960 Referring Tricia Hernandez Room Number 4387 Physician Richard Speech Language Pathology Assistant Stacy Benitez MD RVT Physician ProcedureType of [...] + + + + + + !Mid BLACK BELT ! !59.4 ! ! ! + + + + + + !Dist BLACK BELT ! !61.6 ! ! ! + + + ---------+ + + !Prox JANETTE ! !64.3 ! ! ! + + + +---- + + !Mid JANETTE ! !80.3 ! ! ! + + + + + + !Dist JANETTE ! !67.1 ! ! ! + + + + + +[facility] ValleyArterial doppler leg, [id number] 09:31:54Ejection [facility] ECHO HEARTLAB MKCKESSON [facility] Left Impression1. The common femoral, profunda fe [...] + + + + + + !Mid BLACK BELT ! !59.4 ! ! ! + + +-- + + + !Dist BLACK BELT ! !61.6 ! ! ! + + [...] Study 08/29/2020 NEELAM Age 60 Visit Number [id number] Gender Female Accession Number [id number] Date of 1960 Referring Tricia Hernandez Room Number 9101 Physician Richard Speech Language Pathology Assistant Stacy Proctor Interpreting Vivek Benitez MD RVT [...] + + + + + + !Mid BLACK BELT ! !59.4 ! ! ! + + + + + + !Dist BLACK BELT ! !61.6 ! ! ! + + + ---------+ + + !Prox JANETTE ! !64.3 ! ! ! + + + +---- + + !Mid JANETTE ! !80.3 ! ! ! + + + + + + !Dist JANETTE ! !67.1 ! ! ! + + + + + +[facility] and [id number] 06:17:00 Test Item Value Reference Range Interpretation [...] mL/min/1.73 [place] [address]-0) NOT ACCURATE CREATININE CLEARANCE IN PREDICTING GLOMERULAR FILTRATION RATE . ESTIMATED GFR I S NOT APPLICABLE FOR DIALYSIS PATIEN TS. JESSICA (test code = Radiological Metallurgist ID - BS JESSICA) [facility] and Edpzhzeybi8466-78-99 06:17:00 Test Item Value Reference Range Interpretation [...] mL/min/1.73 [place] [address]-1) NOT ACCURATE CREATININE CLEARANCE IN PREDICTING GLOMERULAR FILTRATION RATE . ESTIMATED GFR I S NOT APPLICABLE FOR DIALYSIS PATIEN TS. JESSICA (test code = Radiological Metallurgist ID - BS JESSICA) [facility] and Gskhtmtdgg3031-96-41 06:17:00 Test Item Value Reference Range Interpretation [...] mL/min/1.73 [place] [address]-5) NOT ACCURATE CREATININE CLEARANCE IN PREDICTING GLOMERULAR FILTRATION RATE . ESTIMATED GFR I S NOT APPLICABLE FOR DIALYSIS PATIEN TS. JESSICA (test code = Radiological Metallurgist ID - BS JESSICA) [facility]BUN AND CREATININE [id number] 06:17:00 Test Item Value Reference Range Interpretation Comments BLOOD UREA NITROGEN 13 mg/dL 7-21 (BEAKER) (test code = 354) CREATININE (BEAKER) 0.72 mg/dL 0.57-1.25 (test code = 358) BUN/CREAT RATIO 18 For a normal (BEAKER) (test code individu al on a = 5946369055) normal diet, t he reference inter jewel for the mass ra nabil ranges between 12:1 and 20:1 (BUN i n mg/dL/creatinin e in mg/dL) EGFR (BEAKER) (test 100 mL/min/1.73 ESTIM ATED GFR IS code = 1092) sq m NOT ACCURATE CREATININE CLEARANCE IN PREDICTING GLOMERULAR FILTRATION RATE . ESTIMATED GFR I S NOT APPLICABLE FOR DIALYSIS PATIEN TS. Radiological Metallurgist ID - BSCBC (HEMOGRAM ONLY)2020-08-30 05:50:00 Test [...] 0-0 (BEAKER) (test code = 413) PROTHROMBIN TIME/[id number] 05:48:00 Test Item Value Reference Range Interpretation Comments PROTIME (BEAKER) 21.5 seconds 11.9-14.2 H (test code = 759) INR (BEAKER) (test 1.89 See_Comment [Automat ed message] code = 370) The system CultureAlley generated this result transmitted ref erence range: [...] 1.0-2.0 units/mL once daily enoxaparin Ref: CHEST 2012;141:[id number] Lab Interpretation (test Normal code = 74261-7) [facility] ValleyHeparin Assay - Low Molecular [id number] 14:07:00 Test Item Value Reference Range Interpretation Comments Anti 10A-Lovenox (test 0.85 u/ml 0.6-2 code = 1605) JESSICA (test code = JESSICA) Anti-Factor 10-A Level (Heparin Assay for Low Molecular Weight Heparin)Monitoring Guidelines: Blood samples should be obtained 4 hours post subcutaneous injection (time of Peak level) Therapeutic Peak Levels: 0.6-1.0 units/mL twice daily enoxaparin 1.0-2.0 units/mL once daily enoxaparin Ref: CHEST 2012;141:[id number] Lab Interpretation (test Normal code = 37555-6) [facility] ValleyHeparin Assay - Low Molecular [id number] 14:07:00 Test Item Value Reference Range Interpretation Comments Anti 10A-Lovenox (test 0.85 u/ml 0.6-2 code = 1605) JESSICA (test code = JESSICA) Anti-Factor 10-A Level (Heparin Assay for Low Molecular Weight Heparin)Monitoring Guidelines: Blood samples should be obtained 4 hours post subcutaneous injection (time of Peak level) Therapeutic Peak Levels: 0.6-1.0 units/mL twice daily enoxaparin 1.0-2.0 units/mL once daily enoxaparin Ref: CHEST 2012;141:[id number] Lab Interpretation (test Normal code = 48854-1) [facility] ValleyHEPARIN ASSAY - LOW MOLECULAR [id number] 14:07:00 Test Item Value Reference Range Interpretation Comments LOVENOX-ANTI 10A (BEAKER) (test 0.85 u/ml 0.60-2.00 code = 1605) Anti-Factor 10-A Level (Heparin Assay for Low Molecular Weight Heparin)Monitoring Guidelines: Blood samples should be obtained 4 hours post subcutaneous injection (time of Peak level) Therapeutic Peak Levels: 0.6-1.0 units/mL twice daily enoxaparin 1.0-2.0 units/mL once daily enoxaparinRef: CHEST 2012;141:[id number] (HEMOGRAM ONLY)2020-08-29 13:22:00 Test Item Value Reference [...] 0-0 (BEAKER) (test code = 413) PROTHROMBIN TIME/[id number] 05:41:00 Test Item Value Reference Range Interpretation Comments PROTIME (BEAKER) 17.4 seconds 11.9-14.2 H (test code = 759) INR (BEAKER) (test 1.45 See_Comment [Automat ed message] code = 370) The system [employer]Alley generated this result transmitted ref erence range: <=5.90. The reference range was not used to int erpret this result as normal/abnormal . RECOMMENDED COUMADIN/WARFARIN INR THERAPY RANGESSTANDARD DOSE: 2.0 - 3.0 Includes: PROPHYLAXIS forvenous thrombosis, systemic embolization; TREATMENT for venous thrombosis and/or pulmonary embolus.HIGH RISK: Target INR is 2.5-3.5 for patients with mechanical heart valves.BUN AND CREATININE W/[id number] 17:04:00 Test Item Value Reference Range Interpretation Comments BLOOD UREA NITROGEN 9 mg/dL 7-21 (BEAKER) (test code = 354) CREATININE (BEAKER) 0.79 mg/dL 0.57-1.25 (test code = 358) BUN/CREAT RATIO 11 For a normal (BEAKER) (test code individu al on a = 2442721303) normal diet, t he reference inter jewel for the mass ra nabil ranges between 12:1 and 20:1 (BUN i n mg/dL/creatinin e in mg/dL) EGFR (BEAKER) (test 90 mL/min/1.73 ESTIMA YUMIKO GFR IS code = 1092) sq m NOT ACCURATE CREATININE CLEARANCE IN PREDICTING GLOMERULAR FILTRATION RATE . ESTIMATED GFR I S NOT APPLICABLE FOR DIALYSIS PATIEN TS. Radiological Metallurgist ID - DBVenous doppler leg, [id number] 15:52:54Ejection FractionSLEH ECHO HEARTLAB MKCKESSON [facility] Left Impression1. There is partial echolucent deep [...] Study 08/28/2020 NEELAM Age 60 Visit Number [id number] Gender Female Accession Number [id number] Date of 1960 Referring Tricia Room Number 2546 Physician Elizabethtn Speech Language Pathology Assistant Jarad Mayberry Interpreting Vivek Benitez MD RVT [...] in cm/s ; Diameters are measured in [facility] Venous doppler leg, [id number] 15:52:54Ejection FractionSLE ECHO HEARTLAB MKCKESSON [facility] Left Impression1. There is partial echolucent deep [...] Study 08/28/2020 NEELAM Age 60 Visit Number [id number] Gender Female Accession Number [id number] Date of 1960 Referring Tricia Room Number 8016 Physician Richard Speech Language Pathology Assistant Jarad Mayberry Interpreting Vivek Benitez MD RVT [...] in cm/s ; Diameters are measured in [facility] Venous doppler leg, [id number] 15:52:54Ejection FractionSLE ECHO HEARTLAB MKCKESSON [facility] Left Impression1. There is partial echolucent deep [...] Study 08/28/2020 NEELAM Age 60 Visit Number [id number] Gender Female Accession Number [id number] Date of 1960 Referring [facility] Room Number 4506 Physician Richard Speech Language Pathology Assistant Jarad Mayberry Interpreting Vivek Benitez MD RVT [...] in cm/s ; Diameters are measured in [facility] SARS-COV2/RT-PCR ([facility] & REF LABS)2020-08-28 12:32:00 Test Item Value Reference Range Interpretation Comments SARS-COV2/RT-PCR (test Negative Not Detected, Negative, code = 5748929) See external report for linked test SARS-COV-[address] [facility] (test code = 1117432) Negative result for this test determines that [...] 564(g) of the Act.Fact Sheet for Healthcare Providers:https://www.Splash.SpineGuard/sites/default/files/product/documents/Fact_Shee b_GB_Jvsdkumpb_Qqwt_MVLL-SaB-7.pdfFact Sheet for Healthcare Patients:https://www.Splash.com/sites/default/files/product/ documents/Nsck_Mnpkk_Rbsmaqdg_Aohp_LRZD-EiH-0.pdfPerforming Laboratory:[facility], [place] [address]GPEEAERSYIO TIME/INR 2020-08-28 05:15:00 Test Item Value Reference Range Interpretation Comments PROTIME (BEAKER) 16.1 seconds 11.9-14.2 H (test code = 759) INR (BEAKER) (test 1.31 See_Comment [Automat ed message] code = 370) The system [employer]Alley generated this result transmitted ref erence range: [...] 0-0 (BEAKER) (test code = 413) PROTHROMBIN TIME/[id number] 16:24:00 Test Item Value Reference Range Interpretation Comments PROTIME (BEAKER) 14.7 seconds 11.9-14.2 H (test code = 759) INR (BEAKER) (test 1.20 See_Comment [Automat ed message] code = 370) The system [employer]Al[employer] generated this result transmitted ref erence range: [...] 0-0 (BEAKER) (test code = 413) PROTHROMBIN TIME/[id number] 14:53:00 Test Item Value Reference Range Interpretation Comments PROTIME (BEAKER) 10.1 seconds 9.8-12.0 (test code = 759) INR (BEAKER) (test 0.94 See_Comment [Automat ed message] code = 370) The system [employer]Al[employer] generated this result transmitted ref erence range: [...] 0-0 (BEAKER) (test code = 413) PROTHROMBIN TIME/[id number] 19:23:00 Test Item Value Reference Range Interpretation Comments PROTIME (BEAKER) 15.0 seconds 11.9-14.2 H (test code = 759) INR (BEAKER) (test 1.20 See_Comment [Automat ed message] code = 370) The system [employer]Alley generated this result transmitted ref erence range: [...] 0-1 PERCENT (BEAKER) (test code = 2801) [id number] 07:38:00 Test Item Value Reference Range Interpretation Comments PTT (test code = 62.8 See_Comment H [Automated message] 09995-7) The system [employer]Alley generated this result transmitted ref erence range: 22.5 - 3 6.0 seconds. The reference range was not used to int erpret this result as normal/abnormal . Lab Interpretation (test Abnormal code = 37600-3) [facility]aPTT2021-06-11 07:38:00 Test Item Value Reference Range Interpretation Comments PTT (test code = 62.8 See_Comment H [Automated message] 68060-2) The system [employer]Alley generated this result transmitted ref erence range: 22.5 - 3 6.0 seconds. The reference range was not used to int erpret this result as normal/abnormal . Lab Interpretation (test Abnormal code = 85937-2) [facility]aPTT2021-06-11 07:38:00 Test Item Value Reference Range Interpretation Comments PTT (test code = 62.8 See_Comment H [Automated message] 95352-7) The system [employer]Alley generated this result transmitted ref erence range: 22.5 - 3 6.0 seconds. The reference range was not used to int erpret this result as normal/abnormal . Lab Interpretation (test Abnormal code = 50623-7) [facility] ValleyAPTT2021-06-11 07:38:00 Test Item Value Reference Range Interpretation [...] WBC 0-0 (BEAKER) (test code = 413) [id number] 23:09:00 Test Item Value Reference Range Interpretation Comments PARTIAL THROMBOPLASTIN TIME 48.3 seconds 22.5-36.0 H (BEAKER) (test code = 760) [id number] 12:59:00 Test Item Value Reference Range Interpretation Comments PARTIAL THROMBOPLASTIN TIME 33.5 seconds 22.5-36.0 (BEAKER) (test code = 760) Basic Metabolic [id number] 06:56:00 Test Item Value Reference Range Interpretation Comments Sodium (test code = 140 meq/L 142-261 4216-2) Potassium (test 4.4 meq/L 3.5-5.1 code = 2823-3) Chloride (test code 100 meq/L 98-107 = 2075-0) CO2 (test code = 27 meq/L -29 2027-9) BUN (test code = 13 mg/dL - 3094-0) Creatinine (test 0.81 mg/dL 0.57-1.25 code = 2160-0) Glucose (test code 101 mg/dL 70-105 = 2345-7) Calcium (test code 9.7 mg/dL 8.4-10.2 = 53310-0) EGFR (test code = 87 mL/min/1.73 [place] [address]-8) NOT ACCURATE CREATININE CLEARANCE IN PREDICTING GLOMERULAR FILTRATION RATE . ESTIMATED GFR I S NOT APPLICABLE FOR DIALYSIS PATIEN TS. LOPEZ (test code = Radiological Metallurgist ID - JESSICA) BALA [facility] Metabolic [id number] 06:56:00 Test Item Value Reference Range Interpretation Comments Sodium (test code = 140 meq/L 042-326 6196-2) Potassium (test 4.4 meq/L 3.5-5.1 code = 2823-3) Chloride (test code 100 meq/L 98-107 = 2075-0) CO2 (test code = 27 meq/L 2027-11) BUN (test code = 13 mg/dL 10-04 3094-0) Creatinine (test 0.81 mg/dL 0.57-1.25 code = 2160-0) Glucose (test code 101 mg/dL 70-105 = 2345-7) Calcium (test code 9.7 mg/dL 8.4-10.2 = 50768-1) EGFR (test code = 87 mL/min/1.[place] [address]-6) NOT ACCURATE CREATININE CLEARANCE IN PREDICTING GLOMERULAR FILTRATION RATE . ESTIMATED GFR I S NOT APPLICABLE FOR DIALYSIS PATIEN TS. JESSICA (test code = Radiological Metallurgist ID - JESSICA) [facility] Metabolic [id number] 06:56:00 Test Item Value Reference Range Interpretation Comments Sodium (test code = 140 meq/L 410-224 2988-2) Potassium (test 4.4 meq/L 3.5-5.1 code = 2823-3) Chloride (test code 100 meq/L 98-107 = 2075-0) CO2 (test code = 27 meq/L 2027-11) BUN (test code = 13 mg/dL 10-04 3094-0) Creatinine (test 0.81 mg/dL 0.57-1.25 code = 2160-0) Glucose (test code 101 mg/dL 70-105 = 2345-7) Calcium (test code 9.7 mg/dL 8.4-10.2 = 49691-2) EGFR (test code = 87 mL/min/1.73 [place] [address]-1) NOT ACCURATE CREATININE CLEARANCE IN PREDICTING GLOMERULAR FILTRATION RATE . ESTIMATED GFR I S NOT APPLICABLE FOR DIALYSIS PATIEN TS. JESSICA (test code = Radiological Metallurgist ID - JESSICA) [facility] METABOLIC [id number] 06:56:00 Test Item Value Reference Range Interpretation [...] S NOT APPLICABLE FOR DIALYSIS PATIEN TS. Radiological Metallurgist ID - BALA [facility] (HEMOGRAM ONLY)2020-08-24 06:41:00 Test Item Value Reference [...] WBC 0-0 (BEAKER) (test code = 413) [id number] 06:32:00 Test Item Value Reference Range Interpretation Comments PARTIAL THROMBOPLASTIN TIME 34.7 seconds 22.5-36.0 (BEAKER) (test code = 760) [id number] 22:03:00 Test Item Value Reference Range Interpretation Comments PARTIAL THROMBOPLASTIN TIME 36.0 seconds 22.5-36.0 (BEAKER) (test code = 760) [id number] 14:36:00 Test Item Value Reference Range Interpretation [...] (BEAKER) (test code = 413) BASIC METABOLIC [id number] 05:47:00 Test Item Value Reference Range Interpretation [...] S NOT APPLICABLE FOR DIALYSIS PATIEN TS. Radiological Metallurgist ID - BAL [facility] (HEMOGRAM ONLY)2020-08-23 05:19:00 Test Item Value Reference [...] = 413) U/S, EXTREMITY, LOWER, LEFT (NON-VASCULAR) [id number] 15:15:00Please obtain biopsy of inguinal mass. Pending discharge Reason for exam:->Large left inguinal mass / lymphadenopathy [facility] 1960 Sex: FFINAL [...] MDReport Verified Date/Time: 08/22/2020 15:15:14 Reading Location: [address] Consult Reading Room US extremity non-vascular limited [id number] 15:15:00 Interface, External Ris In - 08/22/2020 [...] MDReport Verified Date/Time: 08/22/2020 15:15:14 Reading Location: [address] Consult Reading Room Electronically signed by: RICK MUNIZ MDon 08/22/2020 03:15 [facility] [id number] 15:15:00Interface, External Ris In - 08/22/2020 3:17 [...] Muniz Verified Date/Time: 08/22/2020 15:15:14 Reading Location: [address] Consult Reading Room Electronically signed by: Cassandra QUIJANO 08/22/2020 03:15 [facility]- vascular limited izsn1675-71-65 15:15:00Interface, External Ris In - 08/22/2020 3:17 PM CDTFINAL REPORT EXAM: U/S, EXTREMITY, LOWER, LEFT (NON-VASCULAR) LIMITEDDATE: 08/21/2020 3:06 PM INDICATION: Large left inguinal ma ss / lymphadenopathyCOMPARISON: None TECHNIQUE: Transverse and longitudinal uiras scale and color doppler sonographic images of [...] Muniz Verified Date/Time: 08/22/2020 15:15:14 Reading Location: [address] Consult Reading Room Electronically signed by: Cassandra QUIJANO 08/22/2020 03:15 [facility] [id number] 06:22:00 Test Item Value Reference Range Interpretation [...] S NOT APPLICABLE FOR DIALYSIS PATIEN TS. Radiological Metallurgist ID - BALA [facility] (HEMOGRAM ONLY)2020-08-22 05:57:00 [...] (BEAKER) (test code = 413) COMPREHENSIVE METABOLIC [id number] 07:02:00 Test Item Value Reference Range Interpretation [...] S NOT APPLICABLE FOR DIALYSIS PATIEN TS. Radiological Metallurgist ID - BALA MPROTHROMBIN TIME/[id number] 06:42:00 Test Item Value Reference Range Interpretation Comments PROTIME (BEAKER) 13.7 seconds 11.9-14.2 (test code = 759) INR (BEAKER) (test 1.08 See_Comment [Automat ed message] code = 370) The system CultureAlley generated this result transmitted ref erence range: [...] 413) RAD, SPINE, LUMBAR, 2 OR 3 [id number] 20:22:00Reason for exam:->low back [facility] 1960 Sex: [...] LEFT 2020-08-20 20:22:00Reason for exam:->knee pain, [facility] NEELAM : 1960 [...] 2-3 VIEWS, LEFT, TO INCL PELVIS WHEN [id number] 20:22:00Reason for exam:->hip pain, fall [facility]ELAM : 1960 [...] Date/Time: 08/20/2020 20:22:11 XR hip 2 views [id number] 20:22:00Interface, External Ris In - 08/20/2020 8:24 [...] Prateek Fung MDRcarylort Verified Date/Time: 08/20/2020 20:22:11 [facility] [id number] 20:22:00Interface, External Ris In - 08/20/2020 8:24 [...] Fung MDReport Verified Date/Time: 08/20/2020 20:22:11 [facility] left 2020-08-20 20:22:00Interface, [...] Fung MDReport Verified Date/Time: 08/20/2020 20:22:11 [facility] lumbar 2 or 3 [id number] 20:22:00Interface, External Ris In - 08/20/2020 8:24 [...] Fung MDReport Verified Date/Time: 08/20/2020 20:22:11 [facility] lumbar 2 or 3 [id number] 20:22:00Interface, External Ris In - 08/20/2020 8:24 [...] Fung MDReport Verified Date/Time: 08/20/2020 20:22:11 [facility] lumbar 2 or 3 [id number] 20:22:00Interface, External Ris In - 08/20/2020 8:24 [...] Fung MDReport Verified Date/Time: 08/20/2020 20:22:11 [facility] 3 [facility] left 2020-08-20 20:22:00Interface, [...] Fung MDReport Verified Date/Time: 08/20/2020 20:22:11 [facility] 3 views [id number] 20:22:00Interface, External Ris In - 08/20/2020 8:24 [...] Prateek Fung MDRcarylort Verified Date/Time: 08/20/2020 20:22:11 [facility] 3 views left 2020-08-20 20:22:00Interface, [...] Fung MDReport Verified Date/Time: 08/20/2020 20:22:11 [facility] HospitalLactate dehydrogenase (LDH)2020-08-20 15:47:00 Test Item Value Reference Range Interpretation Comments LDH (test code = 2532-0) 228 U/L 125-220 H JESSICA (test code = JESSICA) Radiological Metallurgist ID - DB Lab Interpretation (test Abnormal code = 30125-0) [facility]2021-[facility] 15:47:00 Test Item Value Reference Range Interpretation Comments Magnesium (test code = 2.2 mg/dL 1.6-2.6 78257-2) JESSICA (test code = JESSICA) Radiological Metallurgist ID - DB Lab Interpretation (test Normal code = 55284-4) [facility]osph[facility]2021-06-06 15:47:00 Test Item Value Reference Range Interpretation Comments Phosphorus (test code = 3.1 mg/dL 2.3-4.7 2777-1) JESSICA (test code = JESSICA) Radiological Metallurgist ID - DB Lab Interpretation (test Normal code = 49978-0) [facility] [id number] 15:47:00 Test Item Value Reference Range Interpretation Comments Uric Acid (test code = 5.1 mg/dL 2.6-7.2 3084-1) JESSICA (test code = JESSICA) Radiological Metallurgist ID - DB Lab Interpretation (test Normal code = 84539-3) [facility] ValleyLactate dehydrogenase (LDH)2020-08-20 15:47:00 Test Item Value Reference Range Interpretation Comments LDH (test code = 2532-0) 228 U/L 125-220 H JESSICA (test code = JESSICA) Radiological Metallurgist ID - DB Lab Interpretation (test Abnormal code = 04707-0) [facility]esium2021-06-06 15:47:00 Test Item Value Reference Range Interpretation Comments Magnesium (test code = 2.2 mg/dL 1.6-2.6 97860-5) JESSICA (test code = JESSICA) Radiological Metallurgist ID - DB Lab Interpretation (test Normal code = 42122-3) [facility]2021-06-06 15:47:00 Test Item Value Reference Range Interpretation Comments Phosphorus (test code = 3.1 mg/dL 2.3-4.7 2777-1) JESSICA (test code = JESSICA) Radiological Metallurgist ID - DB Lab Interpretation (test Normal code = 06963-7) [facility] [id number] 15:47:00 Test Item Value Reference Range Interpretation Comments Uric Acid (test code = 5.1 mg/dL 2.6-7.2 3084-1) JESSICA (test code = JESSICA) Radiological Metallurgist ID - DB Lab Interpretation (test Normal code = 22371-1) [facility] ValleyLactate dehydrogenase (LDH)2020-08-20 15:47:00 Test Item Value Reference Range Interpretation Comments LDH (test code = 2532-0) 228 U/L 125-220 H JESSICA (test code = JESSICA) Radiological Metallurgist ID - DB Lab Interpretation (test Abnormal code = 13561-4) [facility]47:00 Test Item Value Reference Range Interpretation Comments Magnesium (test code = 2.2 mg/dL 1.6-2.6 45587-2) JESSICA (test code = JESSICA) Radiological Metallurgist ID - DB Lab Interpretation (test Normal code = 48704-8) [facility] 15:47:00 Test Item Value Reference Range Interpretation Comments Phosphorus (test code = 3.1 mg/dL 2.3-4.7 2777-1) JESSICA (test code = JESSICA) Radiological Metallurgist ID - DB Lab Interpretation (test Normal code = 54043-9) [facility] [id number] 15:47:00 Test Item Value Reference Range Interpretation Comments Uric Acid (test code = 5.1 mg/dL 2.6-7.2 3084-1) JESSICA (test code = JESSICA) Radiological Metallurgist ID - DB Lab Interpretation (test Normal code = 88385-8) [facility] [id number] 15:47:00 Test Item Value Reference Range Interpretation [...] S NOT APPLICABLE FOR DIALYSIS PATIEN TS. Radiological Metallurgist ID - [id number] 15:47:00 Test Item Value Reference Range Interpretation Comments MAGNESIUM (BEAKER) (test code = 2.2 mg/dL 1.6-2.6 627) Radiological Metallurgist ID - [id number] 15:47:00 Test Item Value Reference Range Interpretation Comments PHOSPHORUS (BEAKER) (test code = 3.1 mg/dL 2.3-4.7 604) Radiological Metallurgist ID - DBURIC [id number] 15:47:00 Test Item Value Reference Range Interpretation Comments URIC ACID (BEAKER) (test code = 5.1 mg/dL 2.6-7.2 773) Radiological Metallurgist ID - DBLACTATE DEHYDROGENASE (LDH)2020-08-20 15:47:00 Test Item Value Reference Range Interpretation Comments LACTATE DEHYDROGENASE (BEAKER) (test 228 U/L 125-220 H code = 635) Radiological Metallurgist ID - DBCBC W/PLT COUNT & AUTO [id number] 15:26:00 Test Item Value Reference Range Interpretation [...] (test code = 2801) AFB CULTURE + [id number] 17:40:00 Test Item Value Reference Range Interpretation Comments CULTURE (BEAKER) (test No acid-fast bacilli code = 1095) isolated in 42 days AFB SMEAR (BEAKER) No acid fast bacilli (test code = 994) seen AFB CULTURE + [id number] 16:47:00 Test Item Value Reference Range Interpretation Comments CULTURE (BEAKER) (test No acid-fast bacilli code = 1095) isolated in 42 days AFB SMEAR (BEAKER) No acid fast bacilli (test code = 994) seen FUNGUS CULTURE + [id number] 17:06:00 Test Item Value Reference Range Interpretation Comments CULTURE (BEAKER) (test No fungus isolated in code = 1095) 28 days FUNGUS SMEAR (BEAKER) No fungi seen (test code = 1406) FUNGUS CULTURE + [id number] 20:59:00 Test Item Value Reference Range Interpretation Comments CULTURE (BEAKER) (test No fungus isolated in code = 1095) 28 days FUNGUS SMEAR (BEAKER) No fungi seen (test code = 1406) POCT-GLUCOSE [id number] 17:00:00 Test Item Value Reference Range Interpretation Comments POC-GLUCOSE METER 193 mg/dL 70-110 H TESTED AT [facility] [address] (BEAKER) (test code [facility] = 1538) [place] [address] POCT-GLUCOSE [id number] 11:50:00 Test Item Value Reference Range Interpretation Comments POC-GLUCOSE METER 185 mg/dL 70-110 H TESTED AT [facility] [address] (BEAKER) (test code [facility] = 1538) [place] [address] CBC W/PLT COUNT & AUTO [id number] 09:22:00 Test Item Value Reference Range Interpretation [...] (BEAKER) (test code = 2801) BASIC METABOLIC [id number] 09:21:00 Test Item Value Reference Range Interpretation [...] NOT APPLICABLE FOR DIALYSIS PATIEN TS. C-REACTIVE [id number] 09:21:00 Test Item Value Reference Range Interpretation Comments C-REACTIVE PROTEIN (BEAKER) (test 2.31 mg/dL 0.00-0.50 H code = 676) HEPATIC FUNCTION [id number] 09:20:00 Test Item Value Reference Range Interpretation [...] code = 47 U/L 6-50 347) POCT-GLUCOSE [id number] 06:53:00 Test Item Value Reference Range Interpretation Comments POC-GLUCOSE METER 102 mg/dL 70-110 TESTED AT [facility] [address] (BEAKER) (test code [facility] = 1538) [place] [address] POCT-GLUCOSE [id number] 21:32:00 Test Item Value Reference Range Interpretation Comments POC-GLUCOSE METER 212 mg/dL 70-110 H TESTED AT [facility] [address] (BEAKER) (test code [facility] = 1538) [place] [address] POCT-GLUCOSE [id number] 16:26:00 Test Item Value Reference Range Interpretation Comments POC-GLUCOSE METER 170 mg/dL 70-110 H TESTED AT [facility] [address] (BEAKER) ([facility] 1538[facility] [place] [address] POCT-GLUCOSE [id number] 05:53:00 Test Item Value Reference Range Interpretation Comments POC-GLUCOSE METER 90 mg/dL 70-110 TESTED AT [facility] [address] (BEAKER) (test code = [facility] 1538) [place] [address] POCT-GLUCOSE [id number] 21:52:00 Test Item Value Reference Range Interpretation Comments POC-GLUCOSE METER 130 mg/dL 70-110 H TESTED AT [facility] [address] (BEAKER) ([facility] 1538[facility] [place] [address] POCT-GLUCOSE [id number] 17:16:00 Test Item Value Reference Range Interpretation Comments POC-GLUCOSE METER 177 mg/dL 70-110 H TESTED AT [facility] [address] (BEAKER) ([facility] 1538) [place] [address] [id number] 16:02:00 Test Item Value Reference Range Interpretation Comments POTASSIUM (BEAKER) (test code = 3.9 meq/L 3.5-5.5 379) POCT-GLUCOSE [id number] 12:10:00 Test Item Value Reference Range Interpretation Comments POC-GLUCOSE METER 176 mg/dL 70-110 H TESTED AT [facility] [address] (BEAKER) (test code [facility] = 1538) [place] [address] POCT-GLUCOSE [id number] 05:57:00 Test Item Value Reference Range Interpretation Comments POC-GLUCOSE METER 113 mg/dL 70-110 H TESTED AT [facility] [address] (BEAKER) ([facility] 1538[facility] [place] [address] POCT-GLUCOSE [id number] 21:53:00 Test Item Value Reference Range Interpretation Comments POC-GLUCOSE METER 160 mg/dL 70-[address] [place] [address] [address] (BEAKER) ([facility] 1538[facility] [place] [address] POCT-GLUCOSE [id number] 16:49:00 Test Item Value Reference Range Interpretation Comments POC-GLUCOSE METER 158 mg/dL 70-110 H TESTED AT [facility] [address] (BEAKER) (test code [facility] = 1538) [place] [address] POCT-GLUCOSE [id number] 12:14:00 Test Item Value Reference Range Interpretation Comments POC-GLUCOSE METER 162 mg/dL 70-110 H TESTED AT [facility] [address] (BEAKER) (test code [facility] = 1538) [place] [address] BASIC METABOLIC [id number] 04:57:00 Test Item Value Reference Range Interpretation [...] PATIEN TS. CBC W/PLT COUNT & AUTO [id number] 04:28:00 Test Item Value Reference Range Interpretation [...] PERCENT (BEAKER) (test code = 2801) POCT-GLUCOSE [id number] 20:44:00 Test Item Value Reference Range Interpretation Comments POC-GLUCOSE METER 168 mg/dL 70-110 H TESTED AT [facility] [address] (BEAKER) (test code [facility] = 1538) [place] [address] POCT-GLUCOSE [id number] 16:10:00 Test Item Value Reference Range Interpretation Comments POC-GLUCOSE METER 228 mg/dL 70-110 H TESTED AT [facility] [address] [facility] (test code [facility] = 1538) [place] [address] POCT-GLUCOSE [id number] 13:15:00 Test Item Value Reference Range Interpretation Comments POC-GLUCOSE METER 182 mg/dL 70-110 H TESTED AT [facility] [address] ([facility] (test code [facility] = 1538) [place] [address] POCT-GLUCOSE [id number] 06:57:00 Test Item Value Reference Range Interpretation Comments POC-GLUCOSE METER 153 mg/dL 70-110 H TESTED AT [facility] [address] ([facility] (test code [facility] = 1538) [place] [address] POCT-GLUCOSE [id number] 21:27:00 Test Item Value Reference Range Interpretation Comments POC-GLUCOSE METER 146 mg/dL 70-110 H TESTED AT [facility] [address] ([facility] (test code [facility] = 1538) [place] [address] POCT-GLUCOSE [id number] 17:17:00 Test Item Value Reference Range Interpretation Comments POC-GLUCOSE METER 134 mg/dL 70-110 H TESTED AT [facility] [address] ([facility] (test code [facility] = 1538) [place] [address] POCT-GLUCOSE [id number] 13:49:00 Test Item Value Reference Range Interpretation Comments POC-GLUCOSE METER 177 mg/dL 70-110 H TESTED AT [facility] [address] ([facility] (test code [facility] = 1538) [place] [address] POCT-GLUCOSE [id number] 05:34:00 Test Item Value Reference Range Interpretation Comments POC-GLUCOSE METER 118 mg/dL 70-110 H TESTED AT [facility] [address] ([facility] (test code [facility] = 1538) [place] [address] POCT-GLUCOSE [id number] 21:14:00 Test Item Value Reference Range Interpretation Comments POC-GLUCOSE METER 149 mg/dL 70-110 H TESTED AT [facility] [address] (BEAKER) (test code [facility] = 1538) [place] [address] POCT-GLUCOSE [id number] 17:44:00 Test Item Value Reference Range Interpretation Comments POC-GLUCOSE METER 132 mg/dL 70-110 H TESTED AT [facility] [address] ([facility] (test code [facility] = 1538) [place] [address] POCT-GLUCOSE [id number] 12:21:00 Test Item Value Reference Range Interpretation Comments POC-GLUCOSE METER 168 mg/dL 70-[address] [place] [address] [address] (BEAKER) (test code [facility] = 1538) [place] [address] [id number] 05:19:00 Test Item Value Reference Range Interpretation Comments PARTIAL THROMBOPLASTIN TIME 84.3 seconds 23.2-36.1 H (BEAKER) (test code = 760) POCT-GLUCOSE [id number] 20:50:00 Test Item Value Reference Range Interpretation Comments POC-GLUCOSE METER 147 mg/dL 70-[place] [address] [address] (BEAKER) (test code [facility] = 1538) [place] [address] POCT-GLUCOSE [id number] 17:19:00 Test Item Value Reference Range Interpretation Comments POC-GLUCOSE METER 238 mg/dL 70-[address] [place] [address] [address] (BEAKER) (test code [facility] = 1538) [place] [address] [id number] 15:09:00 Test Item Value Reference Range Interpretation Comments PARTIAL THROMBOPLASTIN TIME 74.8 seconds 23.2-36.1 H (BEAKER) (test code = 760) POCT-GLUCOSE [id number] 11:57:00 Test Item Value Reference Range Interpretation Comments POC-GLUCOSE METER 146 mg/dL 70-110 H TESTED AT [facility] [address] (BEAKER) (test code [facility] = 1538) [place] [address] POCT-GLUCOSE [id number] 05:37:00 Test Item Value Reference Range Interpretation Comments POC-GLUCOSE METER 139 mg/dL 70-110 H TESTED [facility] [address] (BEAKER) (test code [facility] = 1538) [place] [address] BASIC METABOLIC [id number] 04:04:00 Test Item Value Reference Range Interpretation [...] S NOT APPLICABLE FOR DIALYSIS PATIJUNAID JEAN. [id number] 04:02:00 Test Item Value Reference Range Interpretation Comments PARTIAL THROMBOPLASTIN TIME 76.5 seconds 23.2-36.1 H (BEAKER) (test code = 760) CBC W/PLT COUNT & AUTO [id number] 03:41:00 Test Item Value Reference Range Interpretation [...] PERCENT (BEAKER) (test code = 2801) POCT-GLUCOSE [id number] 22:12:00 Test Item Value Reference Range Interpretation Comments POC-GLUCOSE METER 247 mg/dL 70-110 H TESTED AT [facility] [address] (BEAKER) (test code [facility] = 1538) [place] [address] [id number] 21:11:00 Test Item Value Reference Range Interpretation Comments PARTIAL THROMBOPLASTIN TIME 62.4 seconds 23.2-36.1 H (BEAKER) (test code = 760) [id number] 12:45:00 Test Item Value Reference Range Interpretation Comments PARTIAL THROMBOPLASTIN TIME 101.2 seconds 23.2-36.1 H (BEAKER) (test code = 760) POCT-GLUCOSE [id number] 11:48:00 Test Item Value Reference Range Interpretation Comments POC-GLUCOSE METER 259 mg/dL 70-110 H TESTED AT [facility] [address] (BEAKER) (test code [facility] = 1538) [place] [address] POCT-GLUCOSE [id number] 05:38:00 Test Item Value Reference Range Interpretation Comments POC-GLUCOSE METER 121 mg/dL 70-[address] [place] [address] [address] (BEAKER) ([facility] 1538) [place] [address] [id number] 05:33:00 Test Item Value Reference Range Interpretation Comments PARTIAL THROMBOPLASTIN TIME 108.5 seconds 23.2-36.1 H (BEAKER) (test code = 760) POCT-GLUCOSE [id number] 20:59:00 Test Item Value Reference Range Interpretation Comments POC-GLUCOSE METER 197 mg/dL 70-110 H TESTED AT [facility] [address] (BEAKER) (test code [facility] = 1538) [place] [address] POCT-GLUCOSE [id number] 16:47:00 Test Item Value Reference Range Interpretation Comments POC-GLUCOSE METER 150 mg/dL 70-110 H TESTED AT [facility] [address] (BEAKER) ([facility] 1538[facility] [place] [address] [id number] 15:21:00 Test Item Value Reference Range Interpretation Comments PARTIAL THROMBOPLASTIN TIME 79.9 seconds 23.2-36.1 H (BEAKER) (test code = 760) POCT-GLUCOSE [id number] 12:52:00 Test Item Value Reference Range Interpretation Comments POC-GLUCOSE METER 207 mg/dL 70-110 H TESTED AT [facility] [address] (BEAKER) (test code [facility] = 1538) [place] [address] [id number] 09:17:00 Test Item Value Reference Range Interpretation Comments PARTIAL THROMBOPLASTIN TIME 95.7 seconds 23.2-36.1 H (BEAKER) (test code = 760) BASIC METABOLIC [id number] 02:36:00 Test Item Value Reference Range Interpretation [...] S NOT APPLICABLE FOR DIALYSIS PATIEN TED. [id number] 02:26:00 Test Item Value Reference Range Interpretation Comments PARTIAL THROMBOPLASTIN TIME 104.6 seconds 23.2-36.1 H (BEAKER) (test code = 760) CBC W/PLT COUNT & AUTO [id number] 02:18:00 Test Item Value Reference Range Interpretation [...] PERCENT (BEAKER) (test code = 2801) POCT-GLUCOSE [id number] 22:17:00 Test Item Value Reference Range Interpretation Comments POC-GLUCOSE METER 211 mg/dL 70-110 H TESTED AT [facility] [address] (BEAKER) (test code [facility] = 1538) [place] [address] [id number] 20:16:00 Test Item Value Reference Range Interpretation Comments PARTIAL THROMBOPLASTIN TIME 107.2 seconds 23.2-36.1 H (BEAKER) (test code = 760) POCT-GLUCOSE [id number] 16:24:00 Test Item Value Reference Range Interpretation Comments POC-GLUCOSE METER 167 mg/dL 70-110 H TESTED AT [facility] [address] (BEAKER) (test code [facility] = 1538) [place] [address] [id number] 14:17:00 Test Item Value Reference Range Interpretation Comments PARTIAL THROMBOPLASTIN TIME 96.3 seconds 23.2-36.1 H (BEAKER) (test code = 760) POCT-GLUCOSE [id number] 11:40:00 Test Item Value Reference Range Interpretation Comments POC-GLUCOSE METER 190 mg/dL 70-110 H TESTED AT [facility] [address] (BEAKER) (test code [facility] = 1538) [place] [address] [id number] 07:52:00 Test Item Value Reference Range Interpretation Comments PARTIAL THROMBOPLASTIN TIME 58.0 seconds 23.2-36.1 H (BEAKER) (test code = 760) BASIC METABOLIC [id number] 06:09:00 Test Item Value Reference Range Interpretation [...] S NOT APPLICABLE FOR DIALYSIS PATIEN TS. [id number] 05:53:00 Test Item Value Reference Range Interpretation Comments PARTIAL THROMBOPLASTIN TIME 138.1 seconds 23.2-36.1 H (BEAKER) (test code = 760) CBC W/PLT COUNT & AUTO [id number] 05:45:00 Test Item Value Reference Range Interpretation [...] GRANULOCYTES-RELATIVE PERCENT (BEAKER) (test code = 2801) [id number] 23:56:00 Test Item Value Reference Range Interpretation Comments PARTIAL THROMBOPLASTIN TIME 96.6 seconds 23.2-36.1 H (BEAKER) (test code = 760) POCT-GLUCOSE [id number] 21:22:00 Test Item Value Reference Range Interpretation Comments POC-GLUCOSE METER 160 mg/dL 70-110 H TESTED AT [facility] [address] (BEAKER) (test code [facility] = 1538) [place] [address] POCT-GLUCOSE [id number] 17:27:00 Test Item Value Reference Range Interpretation Comments POC-GLUCOSE METER 151 mg/dL 70-110 H TESTED AT [facility] [address] (BEAKER) (test code [facility] = 1538) [place] [address] [id number] 16:40:00 Test Item Value Reference Range Interpretation Comments PARTIAL THROMBOPLASTIN TIME 40.0 seconds 23.2-36.1 H (BEAKER) (test code = 760) POCT-GLUCOSE [id number] 13:43:00 Test Item Value Reference Range Interpretation Comments POC-GLUCOSE METER 164 mg/dL 70-110 H TESTED AT [facility] [address] (BEAKER) (test code [facility] = 1538) [place] [address] [id number] 13:34:00 Test Item Value Reference Range Interpretation Comments PARTIAL THROMBOPLASTIN TIME 141.6 seconds 23.2-36.1 H (BEAKER) (test code = 760) OCCULT BLOOD, [id number] 13:20:00 Test Item Value Reference Range Interpretation Comments FECAL OCCULT BLOOD (BEAKER) (test Negative Negative code = 618) BASIC METABOLIC [id number] 12:13:00 Test Item Value Reference Range Interpretation [...] APPLICABLE FOR DIALYSIS PATIEN TS. HEPATIC FUNCTION [id number] 12:13:00 Test Item Value Reference Range Interpretation [...] 6-50 347) CBC W/PLT COUNT & AUTO [id number] 11:47:00 Test Item Value Reference Range Interpretation [...] GRANULOCYTES-RELATIVE PERCENT (BEAKER) (test code = 2801) [id number] 06:33:00 Test Item Value Reference Range Interpretation Comments PARTIAL THROMBOPLASTIN TIME 102.3 seconds 23.2-36.1 H (BEAKER) (test code = 760) POCT-GLUCOSE [id number] 05:47:00 Test Item Value Reference Range Interpretation Comments POC-GLUCOSE METER 151 mg/dL 70-110 H TESTED AT [facility] [address] (BEAKER) (test code [facility] = 1538) [place] [address] BASIC METABOLIC [id number] 01:16:00 Test Item Value Reference Range Interpretation [...] S NOT APPLICABLE FOR DIALYSIS PATIEN TS. [id number] 01:06:00 Test Item Value Reference Range Interpretation Comments PARTIAL THROMBOPLASTIN TIME 46.8 seconds 23.2-36.1 H (BEAKER) (test code = 760) [id number] 23:18:00 Test Item Value Reference Range Interpretation Comments PARTIAL THROMBOPLASTIN TIME 177.9 seconds 23.2-36.1 HH (BEAKER) (test code = 760) POCT-GLUCOSE [id number] 22:05:00 Test Item Value Reference Range Interpretation Comments POC-GLUCOSE METER 204 mg/dL 70-110 H TESTED AT [facility] [address] (BEAKER) (test code [facility] = 1538) [place] [address] [id number] 16:35:00 Test Item Value Reference Range Interpretation Comments PARTIAL THROMBOPLASTIN TIME 47.9 seconds 23.2-36.1 H (BEAKER) (test code = 760) POCT-GLUCOSE [id number] 16:33:00 Test Item Value Reference Range Interpretation Comments POC-GLUCOSE METER 167 mg/dL 70-110 H TESTED AT [facility] [address] (BEAKER) (test code [facility] = 1538) [place] [address] [id number] 15:11:00 Test Item Value Reference Range Interpretation Comments PARTIAL THROMBOPLASTIN TIME 198.7 seconds 23.2-36.1 HH (BEAKER) (test code = 760) POCT-GLUCOSE [id number] 12:08:00 Test Item Value Reference Range Interpretation Comments POC-GLUCOSE METER 166 mg/dL 70-110 H TESTED AT [facility] [address] (BEAKER) (test code [facility] = 1538) [place] [address] [id number] 07:27:00 Test Item Value Reference Range Interpretation Comments PARTIAL THROMBOPLASTIN TIME 65.6 seconds 23.2-36.1 H (BEAKER) (test code = 760) [id number] 05:59:00 Test Item Value Reference Range Interpretation Comments PARTIAL THROMBOPLASTIN TIME 156.1 seconds 23.2-36.1 HH (BEAKER) (test code = 760) BASIC METABOLIC [id number] 05:54:00 Test Item Value Reference Range Interpretation [...] NOT APPLICABLE FOR DIALYSIS PATIEN TS. POCT-GLUCOSE [id number] 05:45:00 Test Item Value Reference Range Interpretation Comments POC-GLUCOSE METER 145 mg/dL 70-110 H TESTED AT [facility] [address] (BEAKER) (test code [facility] = 1538) [place] [address] CBC W/PLT COUNT & AUTO [id number] 05:36:00 Test Item Value Reference Range Interpretation [...] PERCENT (BEAKER) (test code = 2801) POCT-GLUCOSE [id number] 20:29:00 Test Item Value Reference Range Interpretation Comments POC-GLUCOSE METER 128 mg/dL 70-110 H TESTED AT [facility] [address] (BEAKER) (test code [facility] = 1538) [place] [address] POCT-GLUCOSE [id number] 16:58:00 Test Item Value Reference Range Interpretation Comments POC-GLUCOSE METER 160 mg/dL 70-110 H TESTED AT [facility] [address] (BEAKER) (test code [facility] = 1538) [place] [address] POCT-GLUCOSE [id number] 11:58:00 Test Item Value Reference Range Interpretation Comments POC-GLUCOSE METER 163 mg/dL 70-110 H TESTED AT [facility] [address] [facility] (test code [facility] = 1538) [place] [address] [id number] 05:25:00 Test Item Value Reference Range Interpretation Comments PARTIAL THROMBOPLASTIN TIME 79.6 seconds 23.2-36.1 H (BEAKER) (test code = 760) CBC W/PLT COUNT & AUTO [id number] 05:18:00 Test Item Value Reference Range Interpretation [...] GRANULOCYTES-RELATIVE PERCENT (BEAKER) (test code = 2801) [id number] 21:47:00 Test Item Value Reference Range Interpretation Comments PARTIAL THROMBOPLASTIN TIME 85.4 seconds 23.2-36.1 H (BEAKER) (test code = 760) POCT-GLUCOSE [id number] 16:24:00 Test Item Value Reference Range Interpretation Comments POC-GLUCOSE METER 189 mg/dL 70-110 H TESTED AT [facility] [address] (BEAKER) (test code [facility] = 1538) [place] [address] [id number] 13:02:00 Test Item Value Reference Range Interpretation Comments PARTIAL THROMBOPLASTIN TIME 51.8 seconds 23.2-36.1 H (BEAKER) (test code = 760) POCT-GLUCOSE [id number] 11:41:00 Test Item Value Reference Range Interpretation Comments POC-GLUCOSE METER 169 mg/dL 70-110 H TESTED AT [facility] [address] ([facility]) (test code [facility] = 1538) [place] [address] VITAMIN D, [id number] 08:15:00 Test Item Value Reference Range Interpretation Comments VITAMIN D 25-OH (BEAKER) (test code 5.4 ng/mL 6.6-49.9 L = 2764) Effective 12/25/2016: Reference Range ChangeNew: 6.6-49.9 ng/mL Previous: 13.0-47.8 ng/mLRecommended Vitamin D Target Range: 30.0-40.0 ng/mLPOCT-GLUCOSE [id number] 06:20:00 Test Item Value Reference Range Interpretation Comments POC-GLUCOSE METER 158 mg/dL 70-110 H TESTED AT [facility] [address] ([facility]) (test code [facility] [place] = [address]38) [place] [address] HEPATIC FUNCTION [id number] 05:45:00 Test Item Value Reference Range Interpretation [...] Specimen markedly (test code = 347) hemolyzed [id number] 05:30:00 Test Item Value Reference Range Interpretation Comments PARTIAL THROMBOPLASTIN TIME 63.3 seconds 23.2-36.1 H (BEAKER) (test code = 760) Prior to initiating heparinCBC W/PLT COUNT & AUTO [id number] 05:23:00 Test Item Value Reference Range Interpretation [...] GRANULOCYTES-RELATIVE PERCENT (BEAKER) (test code = 2801) [id number] 00:59:00 Test Item Value Reference Range Interpretation Comments PARTIAL THROMBOPLASTIN TIME 62.3 seconds 23.2-36.1 H (BEAKER) (test code = 760) POCT-GLUCOSE [id number] 21:34:00 Test Item Value Reference Range Interpretation Comments POC-GLUCOSE METER 196 mg/dL 70-110 H TESTED AT [facility] [address] ([facility]) (test code [facility] [place] = [address]38) [place] [address] [id number] 18:14:00 Test Item Value Reference Range Interpretation Comments PARTIAL THROMBOPLASTIN TIME 82.3 seconds 23.2-36.1 H (BEAKER) (test code = 760) POCT-GLUCOSE [id number] 17:01:00 Test Item Value Reference Range Interpretation Comments POC-GLUCOSE METER 192 mg/dL 70-110 H TESTED AT [facility] [address] ([facility]) (test code [facility] = 1538) [place] [address] POCT-GLUCOSE [id number] 13:29:00 Test Item Value Reference Range Interpretation Comments POC-GLUCOSE METER 207 mg/dL 70-110 H TESTED AT [facility] [address] ([facility] (test code [facility] = 1538) [place] [address] [id number] 12:48:00 Test Item Value Reference Range Interpretation Comments PARTIAL THROMBOPLASTIN TIME 63.3 seconds 23.2-36.1 H (BEAKER) (test code = 760) CBC W/PLT COUNT & AUTO [id number] 12:25:00 Test Item Value Reference Range Interpretation [...] H GRANULOCYTES-RELATIVE PERCENT (BEAKER) (test code = 2809) POCT-GLUCOSE [id number] 06:40:00 Test Item Value Reference Range Interpretation Comments POC-GLUCOSE METER 166 mg/dL 70-110 H TESTED AT [facility] [address] ([facility]) (test code [facility] = 1538) [place] [address] BUN AND [id number] 06:07:00 Test Item Value Reference Range Interpretation Comments BLOOD UREA NITROGEN 15 mg/dL 10-26 ([facility]) (test code = 354) CREATININE ([facility]) 0.62 mg/dL 0.50-1.20 (test code = 358) EGFR ([facility]) (test 120 mL/min/1.73 ESTIM ATED GFR IS code = 1092) sq m NOT ACCURATE CREATININE CLEARANCE IN PREDICTING GLOMERULAR FILTRATION RATE . ESTIMATED GFR I S NOT APPLICABLE FOR DIALYSIS PATIEN TS. Please draw first BUN/ S Creat with the 12 noon Amikacin Blood level draw. Thank [id number] 05:48:00 Test Item Value Reference Range Interpretation Comments PARTIAL THROMBOPLASTIN TIME 60.0 seconds 23.2-36.1 H ([facility]) (test code = 760) ANTI-NUCLEAR ANTIBODY (TAMMI)2017-11-20 00:24:00 Test Item Value Reference Range Interpretation Comments ANTI-NUCLEAR ANTIBODY (TAMMI) ([facility]) Negative Negative (test code = 418) Test performed by IFA method.Test performed by IFA method.[id number] 23:01:00 Test Item Value Reference Range Interpretation Comments PARTIAL THROMBOPLASTIN TIME 58.3 seconds 23.2-36.1 H ([facility]) (test code = 760) POCT-GLUCOSE [id number] 21:22:00 Test Item Value Reference Range Interpretation Comments POC-GLUCOSE METER 171 mg/dL 70-110 H TESTED AT [facility] [address] ([facility]) (test code [facility] = 1538) [place] [address] POCT-GLUCOSE [id number] 16:54:00 Test Item Value Reference Range Interpretation Comments POC-GLUCOSE METER 135 mg/dL 70-110 H TESTED AT [facility] [address] ([facility]) (test code [facility] = 1538) [place] [address] PERIPHERAL BLOOD SMEAR - PATHOLOGIST [id number] 15:35:00 Test Item Value Reference Range Interpretation Comments PERIPHERAL SMR REVIEW Neutrophilic ([facility]) (test code = leukocytosis with 2640) increased band forms and unremarkable WBC morphology. Normocytic anemia with unremarkable RBCs. Platelets unremarkable. No dysmorphic or blast forms seen. [id number] Nazario Becker M.D. (BEAKER) (test code = (electronic signature) 2524) (MANUAL DIFFERENTIAL)2017-11-19 15:31:00 Test Item Value Reference [...] (BEAKER) (test code = 1+ few 480) [id number] 15:21:00 Test Item Value Reference Range Interpretation Comments PARTIAL THROMBOPLASTIN TIME 39.3 seconds 23.2-36.1 H (BEAKER) (test code = 760) POCT-GLUCOSE [id number] 13:08:00 Test Item Value Reference Range Interpretation Comments POC-GLUCOSE METER 140 mg/dL 70-110 H TESTED AT [facility] [address] (BEAKER) (test code [facility] = 1538) [place] [address] CBC W/PLT COUNT & AUTO [id number] 09:33:00 Test Item Value Reference Range Interpretation [...] (BEAKER) (test code = 413) BUN AND [id number] 08:45:00 Test Item Value Reference Range Interpretation [...] 12 noon Amikacin Blood level draw. Thank [id number] 08:27:00 Test Item Value Reference Range Interpretation Comments PARTIAL THROMBOPLASTIN TIME 29.5 seconds 23.2-36.1 ([facility] (test code = 760) POCT-GLUCOSE [id number] 04:48:00 Test Item Value Reference Range Interpretation Comments POC-GLUCOSE METER 142 mg/dL 70-110 H TESTED AT [facility] [address] ([facility]) (test code [facility] = 1538) [place] [address] RHEUMATOID FACTOR AB, REFLEX TO [id number] 01:10:00 Test Item Value Reference Range Interpretation Comments RHEUMATOID FACTOR (BEAKER) (test Negative code = 573) [id number] 00:56:00 Test Item Value Reference Range Interpretation Comments PROTIME ([facility]) (test code = 17.9 seconds 11.8-14.4 H 759) INR ([facility]) (test code = 370) 1.4 1.2-1.5 PARTIAL THROMBOPLASTIN TIME 48.9 seconds 23.2-36.1 H ([facility]) (test code = 760) RECOMMENDED COUMADIN/WARFARIN INR THERAPY RANGESSTANDARD DOSE: 2.0 - 3.0 Includes: PROPHYLAXIS forvenous thrombosis, systemic embolization; TREATMENT for venous thrombosis and/or pulmonary embolus.HIGH RISK: Target INR is 2.5-3.5 for patients with mechanical heart valves.VENOUS DOPPLER LEGS, [id number] 22:05:00Reason for exam:->leukocytosis persistentFINAL REPORT CLINICAL HISTORY: [...] MDReport Verified Date/Time: 11/18/2017 22:05:25 Reading Location: [address] Reading Room POCT-GLUCOSE [id number] 20:56:00 Test Item Value Reference Range Interpretation Comments POC-GLUCOSE METER 111 mg/dL 70-110 H TESTED AT [facility] [address] ([facility]) (test code [facility] = 1538) [place] [address] AMIKACIN LEVEL, [id number] 17:26:00 Test Item Value Reference Range Interpretation Comments AMIKACIN, TROUGH ([facility]) (test 10.3 ug/mL 4.0-8.0 HH code = 1830) Therapeutic Range (ug/mL)Peak: 25.0-35.0Trough: 4.0-8.0 Toxic: >35.0VENOUS DOPPLER ARMS, [id number] 16:59:00Reason for exam:->swelling right handAddendum BeginsREPORT STATUS:A Addendum:A left-sided PICC is visualized. End of addendum. Signed: Dangelo Proctoreport Verified Date/Time: 11/18/2017 16:59:45 Reading Location: [facility] Radiology Reading RoomAddendum EndsFINAL REPORT Bilateral [...] MDReport Verified Date/Time: 11/18/2017 15:36:41 [facility] POCT-GLUCOSE [id number] 16:58:00 Test Item Value Reference Range Interpretation Comments POC-GLUCOSE METER 100 mg/dL 70-110 TESTED AT [facility] [address] ([facility]) (test code [facility] = 1538) [place] [address] POCT-GLUCOSE [id number] 11:30:00 Test Item Value Reference Range Interpretation Comments POC-GLUCOSE METER 119 mg/dL 70-110 H TESTED AT [facility] [address] ([facility]) (test code [facility] = 1538) [place] [address] HEPATITIS B SURFACE [id number] 11:18:00 Test Item Value Reference Range Interpretation Comments HEPATITIS B SURFACE ANTIBODY 436.5 mIU/mL <8.0 H ([facility]) (test code = 647) HEPATITIS C [id number] 11:18:00 Test Item Value Reference Range Interpretation Comments HEPATITIS C ANTIBODY ([facility]) Nonreactive Nonreactive (test code = 367) AMIKACIN LEVEL, [id number] 11:03:00 Test Item Value Reference Range Interpretation Comments AMIKACIN, PEAK (AKER) (test code 26.0 ug/mL 25.0-35.0 = 1831) Therapeutic Range (ug/mL)Peak: 25.0-35.0Trough: 4.0-8.0 Toxic: >35.0 SURGICALLY OBTAINED CULTURE + GRAM [id number] 08:25:00 Test Item Value Reference Interpretation Comments [...] No organisms seen (BEAKER) (test code = 600879) ANAEROBIC [id number] 07:53:00 Test Item Value Reference Range Interpretation Comments CULTURE (BEAKER) (test No anaerobes isolated code = 1095) GRAM STAIN RESULT 1+ WBCs (BEAKER) (test code = 1123) GRAM STAIN RESULT No organisms seen (BEAKER) (test code = 67217) POCT-GLUCOSE [id number] 06:37:00 Test Item Value Reference Range Interpretation Comments POC-GLUCOSE METER 135 mg/dL 70-110 H TESTED AT [facility] [address] ([facility]) (test code [facility] = 1538) [place] [address] HIV-1 ANTIGEN WITH HIV-1/2 [id number] 05:51:00 Test Item Value Reference Range Interpretation Comments HIV-1 ANTIGEN WITH HIV 1\\T\\2 Nonreactive Nonreactive ANTIBODY (2) (BEAKER) (test code = 2586) HEPATITIS B SURFACE [id number] 05:46:00 Test Item Value Reference Range Interpretation Comments HEPATITIS B SURFACE ANTIGEN (2) Nonreactive Nonreactive (BEAKER) (test code = 2585) CBC W/PLT COUNT & AUTO [id number] 05:11:00 Test Item Value Reference Range Interpretation [...] code = 2801) Smear reviewed. Results confirmed.POCT-GLUCOSE [id number] 23:01:00 Test Item Value Reference Range Interpretation Comments POC-GLUCOSE METER 111 mg/dL 70-110 H TESTED AT [facility] [address] ([facility]) (test code [facility] = 1538) [place] [address] POCT-GLUCOSE [id number] 17:15:00 Test Item Value Reference Range Interpretation Comments POC-GLUCOSE METER 100 mg/dL 70-110 TESTED AT [facility] [address] ([facility]) (test code [facility] = 1538) [place] [address] C-REACTIVE [id number] 14:34:00 Test Item Value Reference Range Interpretation Comments C-REACTIVE PROTEIN (AKER) (test 35.06 mg/dL 0.00-0.50 H code = 676) POCT-GLUCOSE [id number] 12:50:00 Test Item Value Reference Range Interpretation Comments POC-GLUCOSE METER 221 mg/dL 70-110 H TESTED AT [facility] [address] ([facility]) (test code [facility] = 1538) [place] [address] CBC W/PLT COUNT & AUTO [id number] 10:56:00 Test Item Value Reference Range Interpretation [...] PERCENT (BEAKER) (test code = 2801) POCT-GLUCOSE [id number] 10:03:00 Test Item Value Reference Range Interpretation Comments POC-GLUCOSE METER 104 mg/dL 70-110 TESTED AT [facility] [address] (BEAKER) (test code [facility] = 1538) [place] [address] BASIC METABOLIC [id number] 04:51:00 Test Item Value Reference Range Interpretation [...] NOT APPLICABLE FOR DIALYSIS PATIEN TS. POCT-GLUCOSE [id number] 20:41:00 Test Item Value Reference Range Interpretation Comments POC-GLUCOSE METER 127 mg/dL 70-110 H TESTED AT [facility] [address] (BEAKER) (test code [facility] = 1538) [place] [address] POCT-GLUCOSE [id number] 17:03:00 Test Item Value Reference Range Interpretation Comments POC-GLUCOSE METER 145 mg/dL 70-110 H TESTED AT [facility] [address] (BEAKER) (test code [facility] = 1538) [place] [address] [id number] 12:39:00 Test Item Value Reference Range Interpretation Comments PROCALCITONIN (BEAKER) (test code 1.27 ng/mL <0.05 H = 3036) SEPSIS RISK (ng/mL)Low: 0.05-0.50Intermediate: 0.51-2.00High: >=2.01POCT-GLUCOSE [id number] 11:58:00 Test Item Value Reference Range Interpretation Comments POC-GLUCOSE METER 120 mg/dL 70-110 H TESTED AT [facility] [address] ([facility]) (test code [facility] = 1538) [place] [address] CBC W/PLT COUNT & AUTO [id number] 09:50:00 Test Item Value Reference Range Interpretation [...] PERCENT (BEAKER) (test code = 2801) POCT-GLUCOSE [id number] 06:32:00 Test Item Value Reference Range Interpretation Comments POC-GLUCOSE METER 124 mg/dL 70-110 H TESTED AT [facility] [address] (BEAKER) (test code [facility] = 1538) [place] [address] BASIC METABOLIC [id number] 06:27:00 Test Item Value Reference Range Interpretation [...] APPLICABLE FOR DIALYSIS PATIEN TS. BUN AND [id number] 06:26:00 Test Item Value Reference Range Interpretation [...] APPLICABLE FOR DIALYSIS PATIEN TS. HEMOGLOBIN AND [id number] 06:03:00 Test Item Value Reference Range Interpretation Comments HEMOGLOBIN (BEAKER) (test code = 8.6 GM/DL 12.0-15.5 L 410) HEMATOCRIT (BEAKER) (test code = 25.9 % 36.0-46.0 L 411) CT, CHEST, WITHOUT [id number] 22:51:00FINAL REPORT CLINICAL HISTORY: Leukocytosis FINDINGS: Multiple [...] MDReport Verified Date/Time: 11/15/2017 22:51:35 Reading Location: [address] [place], [id number] 22:51:00FINAL REPORT CLINICAL HISTORY: Leukocytosis FINDINGS: Multiple [...] MDReport Verified Date/Time: 11/15/2017 22:51:35 Reading Location: [address] Reading Room POCT-GLUCOSE [id number] 21:14:00 Test Item Value Reference Range Interpretation Comments POC-GLUCOSE METER 128 mg/dL 70-110 H TESTED AT [address] ([facility]) (test code [facility] = 1538) [place] [address] POCT-GLUCOSE [id number] 17:10:00 Test Item Value Reference Range Interpretation Comments POC-GLUCOSE METER 109 mg/dL 70-110 TESTED AT [address] ([facility]) (test code [facility] = 1538) [place] [address] POCT-GLUCOSE [id number] 12:15:00 Test Item Value Reference Range Interpretation Comments POC-GLUCOSE METER 116 mg/dL 70-110 H TESTED AT [facility] [address] ([facility]) (test code [facility] = 1538) [place] [address] SPIN/CONCENTRATION [id number] 10:39:00 Test Item Value Reference Range Interpretation Comments CONCENTRATION CHARGED ([facility]) (test Done code = 2657) CBC W/PLT COUNT & AUTO [id number] 09:22:00 Test Item Value Reference Range Interpretation [...] (test code = 2801) TYPE AND SCREEN, [id number] 08:18:00 Test Item Value Reference Range Interpretation Comments ABO/RH AUTOMATED (BEAKER) (test B POSITIVE code = 2260) AB SCREEN (BEAKER) (test code = NEGATIVE 923) ANAEROBIC [id number] 07:55:00 Test Item Value Reference Range Interpretation Comments CULTURE (BEAKER) (test No anaerobes isolated code = 1095) BASIC METABOLIC [id number] 05:40:00 Test Item Value Reference Range Interpretation [...] APPLICABLE FOR DIALYSIS PATIEN TS. BUN AND [id number] 05:37:00 Test Item Value Reference Range Interpretation [...] APPLICABLE FOR DIALYSIS PATIEN TS. VANCOMYCIN LEVEL, [id number] 05:36:00 Test Item Value Reference Range Interpretation Comments VANCOMYCIN TROUGH (BEAKER) (test 17.5 ug/mL 10.0-20.0 code = 522) HEMOGLOBIN AND [id number] 05:23:00 Test Item Value Reference Range Interpretation Comments HEMOGLOBIN (BEAKER) (test code = 6.4 GM/DL 12.0-15.5 L 410) HEMATOCRIT (BEAKER) (test code = 19.3 % 36.0-46.0 LL 411) POCT-GLUCOSE [id number] 16:12:00 Test Item Value Reference Range Interpretation Comments POC-GLUCOSE METER 129 mg/dL 70-110 H TESTED AT [facility] [address] (BEAKER) (test code [facility] = 1538) [place] [address] POCT-GLUCOSE [id number] 12:07:00 Test Item Value Reference Range Interpretation Comments POC-GLUCOSE METER 114 mg/dL 70-110 H TESTED AT [facility] [address] (BEAKER) (test code [facility] = 1538) [place] [address] POCT-GLUCOSE [id number] 10:00:00 Test Item Value Reference Range Interpretation Comments POC-GLUCOSE METER 97 mg/dL 70-110 TESTED AT [facility] [address] (BEAKER) (test code = [facility] 1538) [place] [address] SURGICALLY OBTAINED CULTURE + GRAM [id number] 09:36:00 Test Item Value Reference Range Interpretation Comments CULTURE (BEAKER) (test code No growth = 1095) GRAM STAIN RESULT (BEAKER) <1+ WBCs (test code = 1123) GRAM STAIN RESULT (BEAKER) No organisms seen (test code = 44422) POCT-GLUCOSE [id number] 06:06:00 Test Item Value Reference Range Interpretation Comments POC-GLUCOSE METER 105 mg/dL 70-110 TESTED AT [facility] [address] (BEAKER) (test code [facility] = 1538) [place] [address] BASIC METABOLIC [id number] 05:55:00 Test Item Value Reference Range Interpretation [...] PATIEN TS. CBC W/PLT COUNT & AUTO [id number] 05:35:00 Test Item Value Reference Range Interpretation [...] PERCENT (BEAKER) (test code = 2801) POCT-GLUCOSE [id number] 21:11:00 Test Item Value Reference Range Interpretation Comments POC-GLUCOSE METER 94 mg/dL 70-110 TESTED AT [address] (BEAKER) (test code = [facility] 1538) [place] [address] POCT-GLUCOSE [id number] 16:51:00 Test Item Value Reference Range Interpretation Comments POC-GLUCOSE METER 121 mg/dL 70-110 H TESTED AT [address] ([facility]) (test code [facility] = 1538) [place] [address] POCT-GLUCOSE [id number] 15:10:00 Test Item Value Reference Range Interpretation Comments POC-GLUCOSE METER 97 mg/dL 70-110 TESTED AT [address] ([facility]) (test code = [facility] 1538) [place] [address] [id number] 10:17:00 Test Item Value Reference Range Interpretation Comments PROCALCITONIN (BEAKER) (test code 1.41 ng/mL <0.05 H = 3036) SEPSIS RISK (ng/mL)Low: 0.05-0.50Intermediate: 0.51-2.00High: >=2.01HEPATIC FUNCTION [id number] 09:52:00 Test Item Value Reference Range Interpretation [...] code = 12 U/L 6-50 347) POCT-GLUCOSE [id number] 05:57:00 Test Item Value Reference Range Interpretation Comments POC-GLUCOSE METER 87 mg/dL 70-110 TESTED AT [facility] [address] (BEAKER) (test code = [facility] ER 1538) [place] [address] BASIC METABOLIC [id number] 05:34:00 Test Item Value Reference Range Interpretation [...] PATIEN TS. CBC W/PLT COUNT & AUTO [id number] 05:33:00 Test Item Value Reference Range Interpretation [...] (BEAKER) (test code = 2801) BUN AND [id number] 05:32:00 Test Item Value Reference Range Interpretation Comments BLOOD UREA NITROGEN 21 mg/dL 10-26 (BEAKER) (test code = 354) CREATININE (BEAKER) 0.79 mg/dL 0.50-1.20 (test code = 358) EGFR (BEAKER) (test 91 mL/min/1.73 ESTIMA YUMIKO GFR IS code = 1092) sq m NOT ACCURATE CREATININE CLEARANCE IN PREDICTING GLOMERULAR FILTRATION RATE . ESTIMATED GFR I S NOT APPLICABLE FOR DIALYSIS PATIEN TS. BLOOD [id number] 04:00:00 Test Item Value Reference Range Interpretation Comments CULTURE (BEAKER) (test No growth in 5 days code = 1095) BLOOD [id number] 01:00:00 Test Item Value Reference Range Interpretation Comments CULTURE (BEAKER) (test No growth in 5 days code = 1095) POCT-GLUCOSE [id number] 21:25:00 Test Item Value Reference Range Interpretation Comments POC-GLUCOSE METER 135 mg/dL 70-110 H TESTED AT [facility] [address] (BEAKER) (test code [facility] = 1538) [place] [address] ANG, NON-TUNNELED CATH/PICC >5 Y.O.2017-11-12 17:59:00Reason for [...] Successful PICC insertion as described. Signed: Mandi Mancillaort Verified Date/Time: 11/12/2017 17:59:19 Reading Location: [facility] Radiology Reading Room POCT-GLUCOSE [id number] 16:37:00 Test Item Value Reference Range Interpretation Comments POC-GLUCOSE METER 98 mg/dL 70-110 TESTED AT [facility] [address] (BEAKER) (test code = [facility] ER 8583) [place] [address] PERIPHERAL BLOOD SMEAR - PATH REVIEW LAB [id number] 08:14:00 Test Item Value Reference Range Interpretation Comments PERIPHERAL SMR REVIEW Neutrophilic (BEAKER) (test code = leukocytosis and 2640) microcytic anemia. No blast forms seen. [id number] Nazario Becker M.D. (BEAKER) (test code = (electronic signature) 3427) (MANUAL DIFFERENTIAL)2017-11-12 08:12:00 Test Item Value Reference [...] few 963) BODY FLUID CULTURE + GRAM [id number] 08:10:00 Test Item Value Reference Range Interpretation Comments CULTURE (BEAKER) (test No growth code = 1095) GRAM STAIN RESULT 3+ White blood cells (BEAKER) (test code = seen 1123) GRAM STAIN RESULT No organisms seen (BEAKER) (test code = 44389) POCT-GLUCOSE [id number] 06:18:00 Test Item Value Reference Range Interpretation Comments POC-GLUCOSE METER 113 mg/dL 70-110 H TESTED AT [facility] [address] (BEAKER) (test code [facility] = 1538) [place] [address] CBC W/PLT COUNT & AUTO [id number] 04:40:00 Test Item Value Reference Range Interpretation [...] (BEAKER) (test code = 2801) BASIC METABOLIC [id number] 03:56:00 Test Item Value Reference Range Interpretation [...] APPLICABLE FOR DIALYSIS PATIEN TS. BUN AND [id number] 03:55:00 Test Item Value Reference Range Interpretation Comments BLOOD UREA NITROGEN 19 mg/dL 10-26 (BEAKER) (test code = 354) CREATININE (BEAKER) 0.81 mg/dL 0.50-1.20 (test code = 358) EGFR (BEAKER) (test 88 mL/min/1.73 ESTIMA YUMIKO GFR IS code = 1092) sq m NOT ACCURATE CREATININE CLEARANCE IN PREDICTING GLOMERULAR FILTRATION RATE . ESTIMATED GFR I S NOT APPLICABLE FOR DIALYSIS PATIEN TS. POCT-GLUCOSE [id number] 20:51:00 Test Item Value Reference Range Interpretation Comments POC-GLUCOSE METER 151 mg/dL 70-110 H TESTED AT [facility] [address] (BEAKER) (test code [facility] = 1538) [place] [address] POCT-GLUCOSE [id number] 17:20:00 Test Item Value Reference Range Interpretation Comments POC-GLUCOSE METER 101 mg/dL 70-110 TESTED AT [facility] [address] (BEAKER) (test code [facility] = 1538) [place] [address] SPIN/CONCENTRATION [id number] 15:42:00 Test Item Value Reference Range Interpretation Comments CONCENTRATION CHARGED (BEAKER) (test Done code = 2657) POCT-GLUCOSE [id number] 11:34:00 Test Item Value Reference Range Interpretation Comments POC-GLUCOSE METER 109 mg/dL 70-110 TESTED AT [facility] [address] (BEAKER) (test code [facility] = 1538) [place] [address] VANCOMYCIN LEVEL, [id number] 09:14:00 Test Item Value Reference Range Interpretation Comments VANCOMYCIN TROUGH (BEAKER) (test 10.6 ug/mL 10.0-20.0 code = 522) BASIC METABOLIC [id number] 05:59:00 Test Item Value Reference Range Interpretation [...] APPLICABLE FOR DIALYSIS PATIEN TS. BUN AND [id number] 05:58:00 Test Item Value Reference Range Interpretation Comments BLOOD UREA NITROGEN 17 mg/dL 10-26 (BEAKER) (test code = 354) CREATININE (BEAKER) 0.80 mg/dL 0.50-1.20 (test code = 358) EGFR (BEAKER) (test 90 mL/min/1.73 ESTIMA YUMIKO GFR IS code = 1092) sq m NOT ACCURATE CREATININE CLEARANCE IN PREDICTING GLOMERULAR FILTRATION RATE . ESTIMATED GFR I S NOT APPLICABLE FOR DIALYSIS PATIEN TS. POCT-GLUCOSE [id number] 05:49:00 Test Item Value Reference Range Interpretation Comments POC-GLUCOSE METER 121 mg/dL 70-110 H TESTED AT [facility] [id number] (BEAKER) (test code [facility] = 1538) [place] [address] CBC W/PLT COUNT & AUTO [id number] 05:43:00 Test Item Value Reference Range Interpretation [...] PERCENT (BEAKER) (test code = 2801) POCT-GLUCOSE [id number] 00:07:00 Test Item Value Reference Range Interpretation Comments POC-GLUCOSE METER 150 mg/dL 70-110 H TESTED AT [facility] [address] (BEAKER) (test code [facility] = 1538) [place] [address] RAD, HIP, 1 VIEW, [id number] 23:51:00Reason for exam:->postopFINAL REPORT Right hip. HISTORY: Postoperative. COMPARISON STUDY: October 29, 2017. FINDINGS: A single frontal view of the right hip demonstrates a hemiarthroplasty in place. No cement is identified. There is no evidence of fracture or malalignment on this single projection. Signed: Alexandrea Martineseport Verified Date/Time: 11/10/2017 23:51:24 Reading Location: [place] [id number] Ortho Consult Reading Room RAD, PELVIS, 1 OR 2 [id number] 23:22:00Reason for exam:->Hip ArthroplastyReason for exam:->X-Table Lateral [...] MDReport Verified Date/Time: 11/10/2017 23:22:52 Reading Location: [facility] [facility] Orth[facility] Consult Reading Room POCT-GLUCOSE [id number] 22:54:00 Test Item Value Reference Range Interpretation Comments POC-GLUCOSE METER 140 mg/dL 70-110 H TESTED AT [facility] [address] ([facility]) (test code [facility] = 1538) [place] [address] POCT-GLUCOSE [id number] 16:57:00 Test Item Value Reference Range Interpretation Comments POC-GLUCOSE METER 98 mg/dL 70-110 TESTED AT [facility] [address] ([facility]) (test code = [facility] 1538) [place] [address] POCT-GLUCOSE [id number] 12:41:00 Test Item Value Reference Range Interpretation Comments POC-GLUCOSE METER 111 mg/dL 70-110 H TESTED AT [facility] [address] ([facility]) (test code [facility] = 1538) [place] [address] (MANUAL DIFFERENTIAL)2017-11-10 07:35:00 Test Item Value Reference [...] = 762) CBC W/PLT COUNT & AUTO [id number] 07:32:00 Test Item Value Reference Range Interpretation [...] 0-0 CELLS (BEAKER) (test code = 413) [id number] 07:25:00 Test Item Value Reference Range Interpretation Comments PHOSPHORUS (BEAKER) (test code = 3.5 mg/dL 2.5-4.5 604) [id number] 07:25:00 Test Item Value Reference Range Interpretation Comments MAGNESIUM (BEAKER) (test code = 1.7 mg/dL 1.5-3.0 627) BASIC METABOLIC [id number] 07:25:00 Test Item Value Reference Range Interpretation [...] NOT APPLICABLE FOR DIALYSIS PATIEN TS. POCT-GLUCOSE [id number] 06:45:00 Test Item Value Reference Range Interpretation Comments POC-GLUCOSE METER 121 mg/dL 70-110 H TESTED AT [facility] [address] (BEAKER) (test code [facility] = 1538) [place] [address] POCT-GLUCOSE [id number] 22:14:00 Test Item Value Reference Range Interpretation Comments POC-GLUCOSE METER 124 mg/dL 70-110 H TESTED AT [facility] [address] ([facility]) (test code [facility] = 1538) [place] [address] VANCOMYCIN LEVEL, [id number] 21:02:00 Test Item Value Reference Range Interpretation Comments VANCOMYCIN TROUGH ([facility]) (test 9.6 ug/mL 10.0-20.0 L code = 522) POCT-GLUCOSE [id number] 17:22:00 Test Item Value Reference Range Interpretation Comments POC-GLUCOSE METER 98 mg/dL 70-110 TESTED AT [facility] [address] ([facility]) (test code = [facility] 1538) [place] [address] POCT-GLUCOSE [id number] 11:36:00 Test Item Value Reference Range Interpretation Comments POC-GLUCOSE METER 127 mg/dL 70-110 H TESTED AT [facility] [address] ([facility]) (test code [facility] = 1538) [place] [address] WOUND CULTURE + GRAM [id number] 11:05:00 Test Item Value Reference Interpretation Comments Range CULTURE ([facility]) (test ENTEROBACTER A <1+ E [...] No organisms seen (BEAKER) (test code = 432584) POCT-GLUCOSE [id number] 05:54:00 Test Item Value Reference Range Interpretation Comments POC-GLUCOSE METER 116 mg/dL 70-110 H TESTED AT [facility] [address] (BEAKER) (test code [facility] = 1538) [place] [address] [id number] 03:42:00 Test Item Value Reference Range Interpretation Comments PHOSPHORUS (BEAKER) (test code = 3.8 mg/dL 2.5-4.5 604) [id number] 03:42:00 Test Item Value Reference Range Interpretation Comments MAGNESIUM (BEAKER) (test code = 1.9 mg/dL 1.5-3.0 627) BASIC METABOLIC [id number] 03:42:00 Test Item Value Reference Range Interpretation [...] PATIEN TS. CBC W/PLT COUNT & AUTO [id number] 03:21:00 Test Item Value Reference Range Interpretation [...] PERCENT (BEAKER) (test code = 2801) POCT-GLUCOSE [id number] 20:55:00 Test Item Value Reference Range Interpretation Comments POC-GLUCOSE METER 122 mg/dL 70-110 H TESTED AT [facility] [address] (BEAKER) (test code [facility] = 1538) [place] [address] POCT-GLUCOSE [id number] 16:19:00 Test Item Value Reference Range Interpretation Comments POC-GLUCOSE METER 136 mg/dL 70-110 H TESTED AT [facility] [address] (BEAKER) (test code [facility] = 1538) [place] [address] HEMOGLOBIN AND [id number] 14:19:00 Test Item Value Reference Range Interpretation Comments HEMOGLOBIN (BEAKER) (test code = 8.1 GM/DL 12.0-15.5 L 410) HEMATOCRIT (BEAKER) (test code = 24.9 % 36.0-46.0 L 411) POCT-GLUCOSE [id number] 12:13:00 Test Item Value Reference Range Interpretation Comments POC-GLUCOSE METER 142 mg/dL 70-110 H TESTED AT [facility] [address] (BEAKER) (test code [facility] = 1538) [place] [address] POCT-GLUCOSE [id number] 06:02:00 Test Item Value Reference Range Interpretation Comments POC-GLUCOSE METER 109 mg/dL 70-110 TESTED AT [facility] [address] (BEAKER) (test code [facility] = 1538) [place] [address] POCT-GLUCOSE [id number] 05:38:00 Test Item Value Reference Range Interpretation Comments POC-GLUCOSE METER 150 mg/dL 70-110 H TESTED AT [facility] [address] (BEAKER) (test code [facility] = 1538) [place] [address] TYPE AND SCREEN, [id number] 03:11:00 Test Item Value Reference Range Interpretation Comments ABO/RH AUTOMATED (BEAKER) (test B Positive code = 2260) AB SCREEN (BEAKER) (test code = Negative 923) HEMOGLOBIN AND [id number] 02:41:00 Test Item Value Reference Range Interpretation Comments HEMOGLOBIN (BEAKER) (test code = 5.9 GM/DL 12.0-15.5 LL 410) HEMATOCRIT (BEAKER) (test code = 18.2 % 36.0-46.0 LL 411) COMPREHENSIVE METABOLIC [id number] 01:43:00 Test Item Value Reference Range Interpretation [...] S NOT APPLICABLE FOR DIALYSIS PATIEN TS. [id number] 01:36:00 Test Item Value Reference Range Interpretation Comments PHOSPHORUS (BEAKER) (test code = 3.3 mg/dL 2.5-4.5 604) [id number] 01:36:00 Test Item Value Reference Range Interpretation Comments MAGNESIUM (BEAKER) (test code = 1.9 mg/dL 1.5-3.0 627) LACTIC ACID, VENOUS, WHOLE [id number] 01:29:00 Test Item Value Reference Range Interpretation Comments LACTATE BLOOD VENOUS (2) (BEAKER) 0.8 mmol/L 0.5-2.2 (test code = 2872) Effective 07/19/2015: Units/Reference Range ChangeNew: 0.5-2.2 mmol/L Previous: 5-20 mg/dLCBC W/PLT COUNT & AUTO [id number] 01:25:00 Test Item Value Reference Range Interpretation [...] PERCENT (BEAKER) (test code = 2801) POCT-GLUCOSE [id number] 21:52:00 Test Item Value Reference Range Interpretation Comments POC-GLUCOSE METER 113 mg/dL 70-110 H TESTED AT [facility] [address] ([facility]) (test code [facility] = 1538) [place] [address] CT, EXTREMITY, LOWER WITHOUT CONTRAST, [id number] 19:15:00FINAL REPORT CT scan of the right [...] MDReport Verified Date/Time: 11/07/2017 19:15:59 Reading Location: [address] Consult Reading Room RAD, HIP, 2 VIEWS, [id number] 16:19:00Reason for exam:->HIP PAIN FINAL REPORT INDICATION:Right [...] MDReport Verified Date/Time: 11/07/2017 16:19:47 Reading Location: [facility] Women CBC W/PLT COUNT & AUTO [id number] 16:00:00 Test Item Value Reference Range Interpretation [...] (BEAKER) (test code Normal = 762) C-REACTIVE [id number] 15:30:00 Test Item Value Reference Range Interpretation Comments C-REACTIVE PROTEIN (BEAKER) (test 47.39 mg/dL 0.00-0.50 H code = 676) COMPREHENSIVE METABOLIC [id number] 15:30:00 Test Item Value Reference Range Interpretation [...] APPLICABLE FOR DIALYSIS PATIEN TS. BASIC METABOLIC [id number] 06:26:00 Test Item Value Reference Range Interpretation [...] PATIEN TS. CBC W/PLT COUNT & AUTO [id number] 06:12:00 Test Item Value Reference Range Interpretation [...] L 0.00-0.20 (test code = 417) POCT-GLUCOSE [id number] 05:55:00 Test Item Value Reference Range Interpretation Comments POC-GLUCOSE METER 120 mg/dL 70-[address] [facility] [address] (BEAKER) (test code [facility] = 1538) [place] [address] POCT-GLUCOSE [id number] 21:07:00 Test Item Value Reference Range Interpretation Comments POC-GLUCOSE METER 121 mg/dL 70-[address] [facility] [address] (BEAKER) (test code [facility] = 1538) [place] [address] POCT-GLUCOSE [id number] 17:45:00 Test Item Value Reference Range Interpretation Comments POC-GLUCOSE METER 131 mg/dL 70-[address] [facility] [address] (BEAKER) (test code [facility] = 1538) [place] [address] HEMOGLOBIN AND [id number] 14:26:00 Test Item Value Reference Range Interpretation Comments HEMOGLOBIN (BEAKER) (test code = 7.9 GM/DL 12.0-15.0 L 410) HEMATOCRIT (BEAKER) (test code = 24.6 % 36.0-45.0 L 411) POCT-GLUCOSE [id number] 11:22:00 Test Item Value Reference Range Interpretation Comments POC-GLUCOSE METER 134 mg/dL 70-[address] [facility] [address] (BEAKER) (test code [facility] = 1538) [place] [address] BASIC METABOLIC [id number] 05:16:00 Test Item Value Reference Range Interpretation [...] APPLICABLE FOR DIALYSIS PATIEN TS. Specimen recollected. [id number] 04:56:00 Test Item Value Reference Range Interpretation Comments POC-GLUCOSE METER 141 mg/dL 70-[address] [facility] [address] (BEAKER) (test code [facility] = 1538) [place] [address] HEMOGLOBIN AND [id number] 04:10:00 Test Item Value Reference Range Interpretation [...] few 965) CBC W/PLT COUNT & AUTO [id number] 21:34:00 Test Item Value Reference Range Interpretation [...] 6.5-10.5 (BEAKER) (test code = 754) POCT-GLUCOSE [id number] 21:17:00 Test Item Value Reference Range Interpretation Comments POC-GLUCOSE METER 126 mg/dL 70-[address] [facility] [address] (BEAKER) (test code [employer] [facility] = 1538) [place] [address] POCT-GLUCOSE [id number] 18:04:00 Test Item Value Reference Range Interpretation Comments POC-GLUCOSE METER 117 mg/dL 70-110 [facility] [address] [facility] (BEAKER[facility] (test code [employer] [facility] = 1538) [place] [address] POCT-GLUCOSE [id number] 11:38:00 Test Item Value Reference Range Interpretation Comments POC-GLUCOSE METER 133 mg/dL 70-[address] [facility] [address] (BEAKER) (test code [facility] = 1538) [place] [address] BASIC METABOLIC [id number] 04:20:00 Test Item Value Reference Range Interpretation [...] APPLICABLE FOR DIALYSIS PATIEN TS. HEMOGLOBIN AND [id number] 04:11:00 Test Item Value Reference Range Interpretation Comments HEMOGLOBIN (BEAKER) (test code = 8.1 GM/DL 12.0-15.0 L 410) HEMATOCRIT (BEAKER) (test code = 25.6 % 36.0-45.0 L 411) POCT-GLUCOSE [id number] 04:03:00 Test Item Value Reference Range Interpretation Comments POC-GLUCOSE METER 151 mg/dL 70-[address] [facility] [address] (BEAKER) (test code [facility] = 1538) [place] [address] RAD, HIP, 1 VIEW, [id number] 21:16:00Reason for exam:->postopShould this be performed at the bedside?->YesFINAL REPORT Exam: AP hip CLINICAL INDICATION: Right hip arthroplasty IMPRESSION: Compared with intraoperative image performed earlier today at 1400 hours. The patient is status post a right hip arthroplasty. The alignment is near anatomic. No definite evidence of a periprosthetic fracture. As before, postoperative changes are noted in the adjacent soft tissues. Signed: Jarda Lau Verified Date/Time: 10/29/2017 21:16:21 Reading Location: [place] [id number] Transitional Re ading Room POCT-GLUCOSE [id number] 20:20:00 Test Item Value Reference Range Interpretation Comments POC-GLUCOSE METER 76 mg/dL 70-[address] [facility] [address] (BEAKER) (test [facility] = [facility] 1531[facility] [place] [address] POCT-GLUCOSE [id number] 15:13:00 Test Item Value Reference Range Interpretation Comments POC-GLUCOSE METER 150 mg/dL 70-[address] [facility] [address] ([facility]) (test code [facility] = 1538) [place] [address] RAD, HIP, OPERATIVE, [id number] 14:41:00Reason for exam:->RequiredFINAL REPORT RIGHT HIP ONE VIEW HISTORY: Right hip pain, right hip arthroplasty COMPARISON: None FINDINGS: Single intraoperative image of the right hip/low pelvis shows in progress changes of right hip total arthroplasty. A reamer is present in the proximal right femur. The acetabular region is obscured by overlying hardware. Signed: Ceci Aldrich Verified Date/Time: 10/29/2017 14:41:51 Reading Location: [facility] Radiology Reading Room POCT- GLUCOSE [id number] 09:53:00 Test Item Value Reference Range Interpretation Comments POC-GLUCOSE METER 104 mg/dL 70-[address] [facility] [address] (BEAKER) (test code [facility] = 1538) [place] [address] BASIC METABOLIC [id number] 12:23:00 Test Item Value Reference Range Interpretation [...] APPLICABLE FOR DIALYSIS PATIEN TS. URINALYSIS W/ [id number] 12:21:00 Test Item Value Reference Range Interpretation [...] code = 1663) SOURCE(BEAKER) (test code = 3852) CBC W/PLT COUNT & AUTO [id number] 12:18:00 Test Item Value Reference Range Interpretation [...] L 0.00-0.20 (test code = 417) MRSA [id number] 08:33:00 Test Item Value Reference Range Interpretation Comments CULTURE (BEAKER) (test code No MRSA isolated = 1095)
[2021-06-22 12:23] VITALS: BMI 39.9
[2021-06-22] MEDS ORDERED: FENTANYL 50 MCG/PATCH TD SCH (13:00)
[2021-06-22] MEDS ORDERED: HYDROMORPHONE HCL 0.5 MG/0.5 ML INJ IV SCH (13:00)
[2021-06-22] MEDS: HYDROMORPHONE HCL 2 MG/ML inj IV SCH ×6 (13:06→23:33)
--- NOTE | 2021-06-22 15:01 | P.HP ---
Certification for Inpatient Patient admitted to: Inpatient With expected LOS: >2 Midnights Patient will require the following post-hospital care: Hospice Practitioner: I am a practitioner with admitting privileges, knowledge of patient current condition, hospital course, and medical plan of care. 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 SHE IS IN SEVERE PAIN AND MEDS ARE NOT WORKING. PCP CALLED IN HOSPICE TO TAKE OVER THE MANAGEMENT. Allergies Iodinated Contrast Media Allergy (Mild, Verified 06/19/21 11:06) Nausea/Vomiting iopamidol [From Isovue-128] Allergy (Verified 01/03/21 00:13) Shortness of breath Home medications list reviewed: Yes Home Medications: Gabapentin [Neurontin] 800 mg PO BID 12/07/20 Hydromorphone [Dilaudid*] 4 mg PO Q4HP PRN 12/07/20 Promethazine Tab [Phenergan*] 25 mg PO Q4H PRN 12/23/20 Docusate [Colace Cap*] 100 mg PO DAILY #30 cap 12/30/20 Apixaban [Eliquis] 5 mg PO BID tablet 01/12/21 Potassium Oral Tab [Klor-Con 10 mEq Tab*] 20 meq PO TID 02/13/21 Amiloride HCl [Midamor*] 5 mg PO BID #90 tablet 02/14/21 Furosemide [Lasix*] 40 mg PO DAILY #30 tab 02/15/21 fentaNYL [Fentanyl] 1 patch TOP SEECOM 05/10/21 Albuterol Neb [Proventil 0.083% Neb Soln] 2.5 mg NEB [id number] amp 05/16/21 Hydromorphone [Dilaudid*] 2 mg IV Q4H PRN vial 05/16/21 Ipratropium Neb [Atrovent*] 0.5 mg NEB [id number] amp 05/16/21 - Past Medical/Surgical History Has patient received pneumonia vaccine in the past: No Diabetic: No -: breast cancer -: liposarcoma -: HTN (resolved) -: Bilateral mastectomy -: hysterectomy -: R hip replacement Psychosocial/ Personal History: Retired, lives at home by self - Family History Mother -: Diabetes Father -: Cancer Notes: lung cancer Brother -: Hypertension, Diabetes Sister -: Heart disease, Diabetes Notes: cirrhosis - Social History Smoking Status: Unknown if ever smoked Alcohol use: No CD- Drugs: No Caffeine use: Yes Review of Systems General: Weakness, As per HPI Physical Examination - Vital Signs Respirations: 18 Pulse Ox (%): 98 - Physical Exam General: Oriented x3, Severe distress HEENT: Atraumatic, PERRLA, Mucous membr. moist/pink, EOMI, Sclerae nonicteric Neck: Supple, 2+ carotid pulse no bruit, No LAD, Without JVD or thyroid abnormality Respiratory: Clear to auscultation bilaterally, Normal air movement Cardiovascular: Regular rate/rhythm, Normal S1 S2 Gastrointestinal: Normal bowel sounds, No tenderness Musculoskeletal: No tenderness, Other (L THIGH IS ALMOST TWICE THE RIGHT SIDE AND SEVERELY TENSE WITH LARGE SARCOMA. SHE HAS SEVERE TENERNESS OF THE WHOLE THIGH AND LOWER ABDOMEN.) Integumentary: No rashes Neurological: Normal gait, Normal speech, Normal strength at 5/5 x4 extr, Normal tone, Normal affect Lymphatics: No axilla or inguinal lymphadenopathy Assessment and Plan - Problems (Diagnosis) (1) Cancer related pain Current Visit: No Status: Chronic Plan: HER PAIN IS NOT CONTROLLED ON OUTPATIENT BASIS. SHE ALSO DID NOT RESOND TO DILAUID 4H. I CHANGED TO Q2H SCHEDULED AT HIGHER DOSE. ADDED DURAGESIC PATCH AGREE WITH ATIVAN IV THIS IS ENOUGH TO MAKE ONE RESTLESS. (2) Liposarcoma Current Visit: No Status: Chronic - Advance Directives Does patient have a Living Will: No Does patient have a Durable POA for Healthcare: No
[2021-06-23] MEDS: HYDROMORPHONE HCL 2 MG/ML inj IV SCH ×10 (01:33→19:00)
[2021-06-23] MEDS: FENTANYL 75 MCG/PATCH TD SCH (11:23)
[2021-06-23] MEDS: LORazepam 2 MG/ML VIAL IV PRN ×2 (15:23→22:50)
[2021-06-23] MEDS ORDERED: NALOXONE 0.4 MG/ML VIAL IV PRN (15:41)
--- NOTE | 2021-06-23 16:07 | P.PN ---
Subjective Date of Service: 06/23/21 Chief Complaint: SEVERE PAIN L THIGH Subjective: Worsening PAIN HAS IMPROVED FROM 10/10 TO 5/10 BUT STILL SIGNIFICANT AND IT IS VISIBLE ON HER FACE. I ASKED IF SHE HAS ANY FAMILY. SHE IS NOT AND HAS NO KIDS. SHE HAS SIBLINGS IN THE AREA. Review of Systems 10-point ROS is otherwise unremarkable General: Weakness Physical Examination - Vital Signs Temperature: 98.0 F Blood Pressure: 147/72 Pulse: 102 Respirations: 13 Pulse Ox (%): 99 - Physical Exam General: Oriented x3, Moderate distress, Severe distress HEENT: Atraumatic, PERRLA, EOMI Neck: Supple, JVD not distended Respiratory: Clear to auscultation bilaterally Cardiovascular: Regular rate/rhythm, Normal S1 S2 Gastrointestinal: Normal bowel sounds, No tenderness Musculoskeletal: Tenderness (SEVERE SWELLING OF THIGH AND LOWER ABDOMEN. TENSE AND PAINFUL WITH CANCER.) Integumentary: No rashes Neurological: Normal speech, Normal tone, Normal affect Lymphatics: No axilla or inguinal lymphadenopathy - Studies Medications List Reviewed: Yes Assessment And Plan - Current Problems (Diagnosis) (1) Cancer related pain Current Visit: No Status: Chronic Plan: HER PAIN IS NOT CONTROLLED ON OUTPATIENT BASIS. SHE ALSO DID NOT RESOND TO DILAUID 4H. I CHANGED TO Q2H SCHEDULED AT HIGHER DOSE. ADDED DURAGESIC PATCH AGREE WITH ATIVAN IV THIS IS ENOUGH TO MAKE ONE RESTLESS. 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 I RAISED PATCH ALSO TO 75 MCG TOPICAL. WILL TRANSITION TO OXYCODON AND DURAGESIC PAIN IS SEVERE. (2) Liposarcoma Current Visit: No Status: Chronic Plan: HE REASON TO BE INPATIENT IS THAT OUTPATIENT MEDS ARE NOT WORKING AND SHE IS IN SEVERE, INTRACTABLE PAIN.
[2021-06-23] MEDS: HYDROMORPHONE/PCA 10 MG/50 ML SYR IV PRN (17:36)
[2021-06-24] MEDS: HYDROMORPHONE/PCA 10 MG/50 ML SYR IV PRN ×3 (01:45→20:57)
[2021-06-24] MEDS ORDERED: NA CHLORIDE 0.9% 250 ML ONE ×2 (01:52→11:58)
[2021-06-24] MEDS: LORazepam 2 MG/ML VIAL IV PRN ×2 (02:26→06:20)
--- NOTE | 2021-06-24 22:39 | P.PN ---
Subjective Date of Service: 06/24/21 Chief Complaint: SEVERE PAIN L THIGH Subjective: Worsening PAIN HAS IMPROVED FROM 10/10 TO 5/10 BUT STILL SIGNIFICANT AND IT IS VISIBLE ON HER FACE. I ASKED IF SHE HAS ANY FAMILY. SHE IS NOT AND HAS NO KIDS. SHE HAS SIBLINGS IN THE AREA. SHE COMPLAINS OF SEVERE PAIN BUT NURSE SAYS MORE SO WHEN SOMEONE IS IN THE ROOM. ALL HER FRIENDS AGREE THAT HER PAIN HAS IMPROVED SIGNIFICANTLY. Physical Examination - Vital Signs Temperature: 98.0 F Blood Pressure: 130/65 Pulse: 101 Respirations: 18 Pulse Ox (%): 100 - Physical Exam General: Oriented x3, Severe distress HEENT: Atraumatic, PERRLA, EOMI Neck: Supple, JVD not distended Respiratory: Clear to auscultation bilaterally, Normal air movement Cardiovascular: Regular rate/rhythm, Normal S1 S2 Gastrointestinal: Normal bowel sounds, No tenderness Musculoskeletal: No tenderness, Other (LARGE L THIGH MASS AND LOWER ABDOMENSWELLING WITH TENDERNESSS) Integumentary: No rashes Neurological: Normal speech, Normal tone, Normal affect Lymphatics: No axilla or inguinal lymphadenopathy - Studies Medications List Reviewed: Yes Assessment And Plan - Current Problems (Diagnosis) (1) Cancer related pain Current Visit: No Status: Chronic Plan: HER PAIN IS NOT CONTROLLED ON OUTPATIENT BASIS. SHE ALSO DID NOT RESOND TO DILAUID 4H. I CHANGED TO Q2H SCHEDULED AT HIGHER DOSE. ADDED DURAGESIC PATCH AGREE WITH ATIVAN IV THIS IS ENOUGH TO MAKE ONE RESTLESS. WILL CHANGE TO CARDING DOUBLER AND HAVE PHARMACIST CALCULATE DOSE EQUIVALENT. I RAISED PATCH ALSO TO 75 MCG TOPICAL. WILL TRANSITION TO OXYCODON AND DURAGESIC PAIN IS SEVERE. CONT MEDS ORAL AND PATCH TRANSITION IS SLOW (2) Liposarcoma Current Visit: No Status: Chronic Plan: HE REASON TO BE INPATIENT IS THAT OUTPATIENT MEDS ARE NOT WORKING AND SHE IS IN SEVERE, INTRACTABLE PAIN.
[2021-06-25] MEDS: LORazepam 2 MG/ML VIAL IV PRN ×2 (00:08→20:42)
[2021-06-25] MEDS: HYDROMORPHONE/PCA 10 MG/50 ML SYR IV PRN ×2 (03:50→12:50)
[2021-06-25] MEDS: MORPHINE *EXTENDED RELEASE* 15 MG TAB PO SCH ×2 (08:40→20:42)
[2021-06-25] MEDS: DULOXETINE 30 MG CAP PO SCH (08:41)
--- NOTE | 2021-06-25 17:44 | P.PN ---
Subjective Date of Service: 06/25/21 Chief Complaint: SEVERE PAIN L THIGH PAIN HAS IMPROVED FROM 10/10 TO 5/10 BUT STILL SIGNIFICANT AND IT IS VISIBLE ON HER FACE. I ASKED IF SHE HAS ANY FAMILY. SHE IS NOT AND HAS NO KIDS. SHE HAS SIBLINGS IN THE AREA. SHE COMPLAINS OF SEVERE PAIN BUT NURSE SAYS MORE SO WHEN SOMEONE IS IN THE ROOM. ALL HER FRIENDS AGREE THAT HER PAIN HAS IMPROVED SIGNIFICANTLY. SHE IS STILL IN PAIN SHE IS ABLE TO SIT ON COMMODE. SHE WAS ON COMMODE TODAY WHEN I WENT TO SEE HER. I TALKED TO HOSPICE NURSE AND EXPLAINED THE MEDS. Physical Examination - Vital Signs Temperature: 98.4 F Blood Pressure: 114/55 Pulse: 96 Respirations: 16 Pulse Ox (%): 95 - Physical Exam General: Oriented x3, Severe distress HEENT: Atraumatic, PERRLA, EOMI Neck: Supple, JVD not distended Respiratory: Clear to auscultation bilaterally, Normal air movement Cardiovascular: Regular rate/rhythm, Normal S1 S2 Gastrointestinal: Normal bowel sounds, No tenderness Musculoskeletal: No tenderness Integumentary: No rashes Neurological: Normal speech, Normal tone, Normal affect Lymphatics: No axilla or inguinal lymphadenopathy - Studies Medications List Reviewed: Yes Assessment And Plan - Current Problems (Diagnosis) (1) Cancer related pain Current Visit: No Status: Chronic Plan: HER PAIN IS NOT CONTROLLED ON OUTPATIENT BASIS. SHE ALSO DID NOT RESOND TO DILAUID 4H. I CHANGED TO Q2H SCHEDULED AT HIGHER DOSE. ADDED DURAGESIC PATCH AGREE WITH ATIVAN IV THIS IS ENOUGH TO MAKE ONE RESTLESS. 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 I RAISED PATCH ALSO TO 75 MCG TOPICAL. WILL TRANSITION TO OXYCODON AND DURAGESIC PAIN IS SEVERE. CONT MEDS ORAL AND PATCH TRANSITION IS SLOW MS CONTIN ADDED WE NEED TO PLAN FOR DISCHARGE SOON. (2) Liposarcoma Current Visit: No Status: Chronic Plan: HE REASON TO BE INPATIENT IS THAT OUTPATIENT MEDS ARE NOT WORKING AND SHE IS IN SEVERE, INTRACTABLE PAIN.
[2021-06-26] MEDS: HYDROMORPHONE/PCA 10 MG/50 ML SYR IV PRN ×3 (01:30→13:25)
[2021-06-26] MEDS: MORPHINE *EXTENDED RELEASE* 15 MG TAB PO SCH ×3 (09:25→20:31)
[2021-06-26] MEDS: DULOXETINE 30 MG CAP PO SCH (09:25)
[2021-06-26] MEDS: LORazepam 2 MG/ML VIAL IV PRN (09:28)
[2021-06-26] MEDS: FENTANYL 75 MCG/PATCH TD SCH (10:45)
--- NOTE | 2021-06-26 13:02 | P.PN ---
Subjective Date of Service: 06/26/21 Chief Complaint: SEVERE PAIN L THIGH Subjective: Improving PAIN HAS IMPROVED FROM 10/10 TO 5/10 BUT STILL SIGNIFICANT AND IT IS VISIBLE ON HER FACE. I ASKED IF SHE HAS ANY FAMILY. SHE IS NOT AND HAS NO KIDS. SHE HAS SIBLINGS IN THE AREA. SHE COMPLAINS OF SEVERE PAIN BUT NURSE SAYS MORE SO WHEN SOMEONE IS IN THE ROOM. ALL HER FRIENDS AGREE THAT HER PAIN HAS IMPROVED SIGNIFICANTLY. SHE IS STILL IN PAIN SHE IS ABLE TO SIT ON COMMODE. SHE WAS ON COMMODE TODAY WHEN I WENT TO SEE HER. I TALKED TO HOSPICE NURSE AND EXPLAINED THE MEDS. PAIN IS SOME BETTER WITH HEAVY NARCOTICS. Physical Examination - Vital Signs Temperature: 98.4 F Blood Pressure: 99/46 Pulse: 97 Respirations: 16 Pulse Ox (%): 97 - Physical Exam General: Oriented x3, Severe distress Musculoskeletal: Other (L THIGH IS ABOUT TWO TIMES R SIDE. LARGE SARCOMA COVERS THE WHOLE THIGH AND LOWER ABDOMEN. ) - Studies Medications List Reviewed: Yes Assessment And Plan - Current Problems (Diagnosis) (1) Cancer related pain Current Visit: No Status: Chronic Plan: HER PAIN IS NOT CONTROLLED ON OUTPATIENT BASIS. SHE ALSO DID NOT RESOND TO DILAUID 4H. I CHANGED TO Q2H SCHEDULED AT HIGHER DOSE. ADDED DURAGESIC PATCH AGREE WITH ATIVAN IV THIS IS ENOUGH TO MAKE ONE RESTLESS. WILL CHANGE TO TREE FELLER AND HAVE PHARMACIST CALCULATE DOSE EQUIVALENT. I RAISED PATCH ALSO TO 75 MCG TOPICAL. WILL TRANSITION TO OXYCODON AND DURAGESIC PAIN IS SEVERE. CONT MEDS ORAL AND PATCH TRANSITION IS SLOW MS CONTIN ADDED WE NEED TO PLAN FOR DISCHARGE SOON. I AM NOT SURE IF SHE WILL BE ABLE TO GO HOME WITH ORAL AND PATCH MEDS. SHE IS IN SEVERE PAIN NEEDING IV MEDS. (2) Liposarcoma Current Visit: No Status: Chronic Plan: HE REASON TO BE INPATIENT IS THAT OUTPATIENT MEDS ARE NOT WORKING AND SHE IS IN SEVERE, INTRACTABLE PAIN.
[2021-06-26] MEDS ORDERED: LORAZEPAM 1 MG TABLET PO PRN (13:54)
[2021-06-26] MEDS: HYDROMORPHONE ORAL 4 MG TAB PO PRN (15:22)
--- NOTE | 2021-06-26 22:00 | RAD REPORT ---
EXAM DESCRIPTION: RAD - Chest Single View - 06/26/2021 9:44 pm CLINICAL HISTORY: PICC line placement COMPARISON: Portable June 19 FINDINGS: Portable chest was obtained following placement of a left upper extremity PICC line. The c atheter tip is in the right atrium.
[2021-06-27] MEDS: HYDROMORPHONE ORAL 4 MG TAB PO PRN (02:28)
[2021-06-27] MEDS ORDERED: NA CHLORIDE 0.9% 250 ML ONE (09:18)
[2021-06-27] MEDS: NA CHLORIDE 0.9% 250 ML IV PRN ×2 (09:19→23:02)
[2021-06-27] MEDS: MORPHINE *EXTENDED RELEASE* 15 MG TAB PO SCH ×3 (09:19→20:47)
[2021-06-27] MEDS: DULOXETINE 30 MG CAP PO SCH (09:19)
--- NOTE | 2021-06-27 10:24 | RAD REPORT ---
EXAM DESCRIPTION: RAD - Chest Single View - 06/27/2021 1:24 am CLINICAL HISTORY: 61 years, Female, PICC Placement COMPARISON: 06/26/2021 FINDINGS: Single view of the chest was obtained portable. Prior films were compared. There is a left upper trauma to PICC line tip of the catheter within the superior vena cava in good position. The cardiomediastinal silhouette demonstrate to be unremarkable. The heart is not enlarged. The thoracic aorta is tortuous. The pulmonary vasculature is normal distribution. Costophrenic angles are sharp. No areas of consolidation or masses are seen. Degenerative changes bilateral shoulders. The rest o f the soft tissue and bony structures demonstrate to be unremarkable. IMPRESSION: Left upper extremity PICC line in good position. No focal areas of acute airspace disease. Electronically signed by: Osmany Samuels MD 06/27/2021 1:47 AM CDT Due to temporary technical issues with the PACS/Fluency reporting system, reports are being signed by the in house radiologist without review as a courtesy to ensure prompt reporting. The interpreting r adiologist is fully responsible for the content of the report.
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
[2021-06-27] MEDS: HYDROMORPHONE/PCA 10 MG/50 ML SYR IV PRN (18:42)
[2021-06-27] MEDS: LORazepam 2 MG/ML VIAL IV PRN (23:02)
[2021-06-28] MEDS: LORazepam 2 MG/ML VIAL IV PRN ×2 (05:42→22:10)
[2021-06-28] MEDS: HYDROMORPHONE/PCA 10 MG/50 ML SYR IV PRN ×2 (07:24→15:28)
[2021-06-28] MEDS: MORPHINE *EXTENDED RELEASE* 15 MG TAB PO SCH ×3 (08:23→20:34)
[2021-06-28] MEDS: DULOXETINE 30 MG CAP PO SCH (08:23)
[2021-06-28] MEDS: NA CHLORIDE 0.9% 250 ML IV PRN (13:26)
[2021-06-28 20:38] VITALS: BP 102/58; TEMP 98.6
--- NOTE | 2021-06-28 21:02 | P.DS ---
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 SHE IS IN SEVERE PAIN AND MEDS ARE NOT WORKING. PCP CALLED IN HOSPICE TO TAKE OVER THE MANAGEMENT. DANIEL HAS SEVERE PAIN FROM END STAGE SARCOMA THAT INVOLVES THE WHOLE THIGH AND ABDOMEN. HER SKIN IS SEVERELY PRESSURED BY TUMOR. IT TOOK ME HIGH DOSE OF IV AND ORAL MEDS TO FIRST TIME TODAY BE ABLE TO HAVE SOME CONTROL OF PAIN. I ADVISE INPATIENT [facility] AND SO SHE WILL BE TRANSFERRED TO [facility] IN [place]. Vital Signs/Physical Exam: Temp Pulse Resp BP Pulse Ox 98.6 F 93 H 16 102/58 L 97 06/28/21 20:00 06/28/21 20:00 06/28/21 20:34 06/28/21 20:00 06/28/21 20:34 Home Medications: Gabapentin [Neurontin] 800 mg PO BID 12/07/20 Promethazine Tab [Phenergan*] 25 mg PO Q4H PRN 12/23/20 Docusate [Colace Cap*] 100 mg PO DAILY #30 cap 12/30/20 Apixaban [Eliquis] 5 mg PO BID tablet 01/12/21 fentaNYL [Fentanyl] 1 patch TOP SEECOM 05/10/21 Albuterol Neb [Proventil 0.083% Neb Soln] 2.5 mg NEB [id number] amp 05/16/21 Hydromorphone [Dilaudid*] 2 mg IV Q4H PRN vial 05/16/21 Ipratropium Neb [Atrovent*] 0.5 mg NEB [id number] amp 05/16/21 Hydromorphone [Dilaudid*] 4 mg PO Q4H PRN tab 06/28/21 LORazepam [Ativan*] 1 mg PO Q4H PRN tab 06/28/21 Mag Hydroxide 8% [Milk Of Magnesia*] 30 ml PO DAILY PRN ucup 06/28/21 Morphine *Extended Release* [MS Contin*] 30 mg PO TID tab 06/28/21
[2021-06-28 23:21] VITALS: O2SAT 96
== END 2021-06-28 22:15 | disposition hospice, inpatient (51) | DRG 951 ==
LOC: 4TH 11:23 → 2ND 14:34
PROVIDERS: ADMIT Internal Medicine; ATTEND Internal Medicine
PROC: 02HV33Z Insertion of Infusion Device into Superior Vena Cava, Percutaneous Approach (ICD-10-PCS; principal; 2021-06-26)
DX: Z51.5 Encounter for palliative care (principal); C76.52 Malignant neoplasm of left lower limb; I10 Essential (primary) hypertension; G89.3 Neoplasm related pain (acute) (chronic); Z96.641 Presence of right artificial hip joint; Z91.041 Radiographic dye allergy status; Z85.3 Personal history of malignant neoplasm of breast
CPT/HCPCS: 36569; 71045; J1170; J2405; J7050